=== PATIENT | male | born 1960 | race Caucasian/White ===

== ENCOUNTER 2017-07-10 06:30 | Inpatient (IN) | payer OTHER, SELFPAY ==
[2017-07-10] VITALS (18 sets, daily range): BP systolic 132–182; BP diastolic 73–106; PULSE 65–93; RESP 16–23; TEMP 36.3–36.8; O2SAT 93–97; BMI 29.0; BMI 29.1; BMI 27.8
--- NOTE | 2017-07-10 06:41 | RAD_ITS ---
STUDY: X-RAY CHEST REASON FOR EXAM: Male, 57 years old. Chest pain. TECHNIQUE: Single AP portable view of the chest. COMPARISON: Comparison is made with prior study dated April 08, 2017. FINDINGS: EKG electrodes are seen. Mild elevation of the left hemidiaphragm. Increased markings at the lung bases worse on the left side suggestive of a scarring. Superimposed atelectasis and/or early infiltrate cannot be ruled out at the left lung base. Follow-up is recommended. There is no demonstrated pleural abnormality. Sternal cerclage wires and vascular clips are present from a prior sternotomy and coronary artery bypass graft procedure (CABG). Normal mediastinum and radha. Normal visualized pulmonary arteries. Normal visualized aortic arch and descending thoracic aorta. There are diffuse degenerative changes of the visualized thoracic spine. Normal visualized ribs, clavicles, and shoulders. There is no demonstrated abnormality of the visualized soft tissue structures of the upper abdomen. RAD/Chest 1 View (Portable) IMPRESSION: Persistent increased markings at the lung bases suggestive scarring with possible superimposed atelectasis at the left lung base. Electronically Signed: Sam Duncan MD at 8:02 EDT Tel [phone], Service support ,
--- NOTE | 2017-07-10 06:41 | EKG12_ITS ---
Test Reason : CHEST PAIN Blood Pressure : / mmHG Vent. Rate : 075 BPM Atrial Rate : 075 BPM P-R Int : 136 ms QRS Dur : 082 ms QT Int : 378 ms P-R-T Axes : 057 039 063 degrees QTc Int : 422 ms Normal sinus rhythm Normal ECG Confirmed by JULIO CÉSAR BEDOYA MD ([id number]), science editor JENNIFER COMBS ([id number] on 07/14/2017 8:24:45 AM Referred By: Confirmed By:JULIO CÉSAR BEDOYA MD
[2017-07-10] MEDS: Aspirin 81 MG TAB.CHEW 324 MG PO (06:44)
[2017-07-10] MEDS: 0.9% Normal Saline 1,000 ML 150 ML IV (06:50)
--- NOTE | 2017-07-10 07:03 | ED.DCSUM_ITS ---
- ER Visit Summary Date of Service: 07/10/17 Chief Complaint: [Chest pain] History of Present Illness: The patient is a 57 M [presents with chest discomfort that woke him up around 1:30 AM. Patient describes it as a sharp pain that was all the way across his upper abdomen and chest. Patient states the pain is more localized to the left side on arrival the emergency department. After patient woke up he noticed that he was very sweaty. Patient felt short of breath with it. Patient complains of dyspnea with activity. Patient was nauseated but had no vomiting. Patient denies any radiation of the pain. Patient denies recent illness but did state that he had bronchitis about a month and a half ago. Patient does have cardiac history with prior 4 vessel CABG about 11 years ago. Patient also with history of hypertension and high cholesterol.] Physical Examination: [HEENT-PERRLA, EOMI. Cranial nerves II through XII grossly intact. TMs clear. Mucous membranes moist. No adenopathy. Cardiovascular-regular rate and rhythm without murmur or ectopy Lungs-clear to auscultation, chest wall stable without crepitus or subcu emphysema Abdomen-normoactive bowel sounds, soft, nontender, no rebound or rigidity, no peritoneal signs. Extremities-intact ?4, normal range of motion, normal pulses, atraumatic] Test Results: [EKG obtained on arrival showed a sinus rhythm with a ventricular rate 75 bpm with no acute ST segment changes.] CBC with differential obtained showed a white count of 8.3, hemoglobin 16.9, hematocrit 46, platelets 244. Chemistries, d-dimer, troponin pending. Emergency Department Course and Treatment: [Care of patient turned over to morning physician awaiting lab results and final disposition. Based on patient' s history and symptomatology he will require admission for further workup and evaluation] Treatment Plan: [Pending] Disposition: [Pending] Impression: [Chest pain] This note was generated with [employer] dictation software. It may contain incorrect words, spelling, and punctuation that were not noted in review of the chart prior to signing <Severo Zeng - Last Filed: 07/10/17 07:42> - ER Visit Summary Patient signed out to me. He had difficulty with his blood work secondary to hemolysis and high lipids. Glucose 343. Lipase 848. Liver enzymes slightly elevated. Troponin indeterminate. We were unable to get a d-dimer. CT was done. This showed bibasilar infiltrates. He has no leukocytosis, fever, cough, sputum, or symptoms of pneumonia. CT abdomen showed fatty liver, left inguinal hernia, and diverticulosis. I spoke with the hospitalist. We will not start antibiotics at this time. They will continue to monitor. Patient will need admission for his chest pain, indeterminate troponin, pancreatitis, and other abnormal laboratory findings. Impression: #1. Chest pain #2. Pancreatitis #3. Hyperglycemia <Obie Acuna - Last Filed: 07/10/17 14:28> ED Disposition <Severo Zeng - Last Filed: 07/10/17 07:42> <Obie Acuna - Last Filed: 07/10/17 14:28> - Plan for ED Patient: Chief Complaint: Chest Pain Referrals: Care Physician,No Primary [NON-STAFF] -
[2017-07-10 07:04] LABS: Absolute Lymphocyte Count 1.83 X10^3/ul (0.83-4.51); Absolute Neutrophil Count 5.5 X10^3/uL (2.0-7.7); Basophil# 0.01 X10^3/uL; Basophil% 0.1 % (0-1); Eosinophil# 0.31 X10^3/uL; Eosinophils% 3.7 % (0-5); Hematocrit 46.3 % (40-54); Hemoglobin 16.9 g/dl (13.0-16.5); Lymphocyte # 1.83 X10^3/ul (4.0); Mean Corp Hgb Conc 36.5 g/gl (32-36); Mean Corpuscular Hgb 33.9 pg (27.0-32.0); Mean Platelet Vol. 10.8 fl (6.2-12.0); Monocyte# 0.64 X10^3/uL; Monocyte% 7.7 % (0-10); Neutrophil # 5.51 X10^3/uL (2.7-7.7); Neutrophil % 66.4 % (47-70); Platelet Count 244 K/mm3 (150-450); RBC Distribution Width CV 12.3 % (11.6-14.6); RBC Distribution Width SD 41.3 fl (35.1-43.9); Red Blood Count 4.98 M/mm3 (4.6-6.2); White Blood Count 8.3 K/mm3 (4.4-11.0)
[2017-07-10 07:05] LABS: POSITIVE COUNT NO; POSITIVE DIFFERENTIAL NO; POSITIVE MORPHOLOGY NO
[2017-07-10] MEDS: Ondansetron 4 MG/2 ML Vial IV (10:36)
[2017-07-10 10:50] LABS: Bedside Glucose 316 mg/dL (70-110)
[2017-07-10 12:11] LABS: AST(SGOT) 48 U/L (15-37); Alanine Aminotransfer ALT/SGPT 77 U/L (16-61); Albumin, Serum 2.9 g/dL (3.2-5.0); Alkaline Phosphatase 106 U/L (45-117); Anion Gap 9 (5-15); BUN 11 mg/dL (7-18); BUN/Creat Ratio 16.8 RATIO (10-20); Bilirubin, Direct < 0.05 mg/dL (0.00-0.30); Calcium,Total 7.2 mg/dL (8.5-10.1); Chloride 96 mmol/L (98-107); Creatinine, Serum 0.65 mg/dL (0.70-1.30); EST Glomerular Filtration Rate 134 mL/min (>60); Est Glom Filt Rate - Afr Amer 162 mL/min (>60); Estimated Creatinine Clearance 133.54 ml/min; Globulin 3.5 g/dL (2.2-4.2); Glucose 343 mg/dL (74-106); Lipase 848 U/L (73-393); Potassium 4.4 mmol/L (3.5-5.1); Protein, Total 6.4 g/dL (6.4-8.2); Sodium Level 130 mmol/L (136-145)
--- NOTE | 2017-07-10 12:40 | CT_ITS ---
STUDY: CTA CHEST REASON FOR EXAM: Male, 57 years old. Chest pain. RADIATION DOSAGE (If Supplied By Facility): CTDIvol = ( 18.21 ) mGy, DLP = ( 701.81 ) mGycm TECHNIQUE: The examination was performed with the intravenous administration of 100 ml of Isovue 370 contrast material. Post-processing of the angiographic images was performed, with multiplanar reformation and 3D reconstruction. Individualized dose optimization techniques were used for this CT. COMPARISON: Comparison is made with prior chest radiograph done earlier today. FINDINGS: Normal enhancement of the main pulmonary artery and right and left pulmonary arteries. Normal enhancement of the bilateral peripheral pulmonary arteries. There is no demonstrated pulmonary embolism. Normal thoracic aorta and visualized great vessels. There is no demonstrated aortic dissection. Sternal cerclage wires and vascular clips are present from a prior sternotomy and coronary artery bypass graft procedure (CABG). There are calcifications of the coronary arteries. Normal mediastinum. Normal hilar regions. Normal visualized trachea and bronchi. Hyperinflation. Emphysematous changes seen in both lungs. There is evidence of a patchy infiltrates in both lower lobes. Normal pleura. Normal chest wall structures. Normal osseous structures. Fatty infiltration of the liver. Small hiatal hernia. CT/CTA Chest W/WO Contrast IMPRESSION: There is no evidence of pulmonary embolism. Bibasilar patchy infiltrates. Electronically Signed: Sam Duncan MD at 14:03 EDT Tel [phone], Service support ,
--- NOTE | 2017-07-10 12:41 | CT_ITS ---
STUDY: CT ABDOMEN AND PELVIS WITH CONTRAST REASON FOR EXAM: Male, 57 years old. Abdominal pain. RADIATION DOSAGE (If Supplied By Facility): CTDIvol = ( 23.11 ) mGy, DLP = ( 1251.71 ) mGycm TECHNIQUE: Transaxial images were obtained from the dome of the diaphragm to the symphysis pubis without oral contrast. 100 ml of Isovue 370 contrast was administered. Sagittal and coronal images were reconstructed. Individualized dose optimization techniques were used for this CT. COMPARISON: Comparison is made with prior study dated February 07, 2017. FINDINGS: Bibasilar patchy infiltrates. Prior CABG. Coronary artery calcification. There is decreased attenuation of the liver consistent with steatosis. Normal gallbladder and extrahepatic biliary system. Normal spleen. Normal pancreas. Normal bilateral adrenal glands. Normal right kidney. Normal left kidney. There is a small hiatal hernia. Normal small intestine. There are multiple colonic diverticula consistent with diverticulosis. The appendix is visualized and appears normal. There is diffuse atherosclerotic calcification of the abdominal aorta, without a demonstrated aneurysm. I suspect stenosis of the right common iliac artery. Normal inferior vena cava. Normal retroperitoneum. Normal urinary bladder. There is a left-sided inguinal hernia containing adipose tissue. There are diffuse degenerative changes of the visualized lumbar spine. CT/Abdomen/Pelvis W IV Cont ONLY IMPRESSION: Bibasilar infiltrates. Fatty infiltration of the liver. Sigmoid diverticulosis. Left inguinal hernia. Electronically Signed: Sam Duncan MD at 14:05 EDT Tel [phone], Service support ,
[2017-07-10 12:43] LABS: D-Dimer Quantitative (DVT/PE) 0.56 FEU/ug/m (0.27-0.49)
--- NOTE | 2017-07-10 14:54 | PCM.HP.STD ---
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 transplanted heart: [place] heart Comment: s/p CABG X4 2006 (9) Non compliance w medication regimen Status: Chronic (10) Fatty liver Status: Chronic (11) GERD (gastroesophageal reflux disease) Status: Chronic Qualifiers: Esophagitis presence: esophagitis presence not specified Qualified Code(s): K21.9 - Gastro-esophageal reflux disease without esophagitis History of Present Illness Date of Admission: 07/10/17 Chief Complaint: epigastric abdominal pain with nausea, shortness of breath The patient is a 57 year old M past history of CAD, status post CABG times 07/2006, hypertension, hyperlipidemia, tobacco dependency, diabetes mellitus 2 who refuses oral agents or insulin, noncompliance, who presented to emergency department for evaluation of epigastric abdominal pain with nausea, and some shortness of breath, onset last night after eating chicken wings. He denies EtOH use. Patient states in general he has done very well since his bypass, he does not note exertional chest pain. He cannot list his medications. He has upcoming appointment with his desk operator (Dr. Herrera Espinosa) on August 10, but has not seen his primary care doctor in some time. ED evaluation: Afebrile, heart rate 72 regular, BP 182/95, respirations 23, 96 room air Is pertinent for normal CBC, creatinine 0.65, elevated random glucose 343, pseudohyponatremia 130, transaminitis with AST 48, ALT 77, normal alkaline phosphatase and bilirubin, borderline troponin I 0.16, albumin 2.9, lipase 848. Chest x-ray reveals emphysematous changes and basilar scarring, chest CT contrast reveals no evidence of PE or dissection, basilar infiltrate/atelectasis. CT abdomen/pelvis IV contrast reveals diverticulosis, fatty liver, pancreas and gallbladder. EKG reveals normal sinus rhythm without ischemic changes. In the ED department, the patient received aspirin 324 mg, Zofran 4 mg IV, and fluids. Blood draw indicated lipemic serum. The patient is seen and examined. He denies anginal type chest pains. He has had no cough fever or sputum. [] Past Medical History Past Medical History (Chronic Problems): Chronic Problems Type 2 diabetes mellitus with hyperglycemia (Chronic) non compliance Mixed hyperlipidemia due to type 2 diabetes mellitus (Chronic) lipemic serum clinically HTN (hypertension) (Chronic) Smoker (Chronic) CAD (coronary artery disease) (Chronic) s/p CABG X4 2006 Non compliance w medication regimen (Chronic) Fatty liver (Chronic) GERD (gastroesophageal reflux disease) (Chronic) Allergies amoxicillin Allergy (Verified 07/10/17 07:20) Angioedema lindane Allergy (Verified 07/10/17 07:24) Rash Home Medications: Ambulatory Orders Medication Instructions Recorded Metoprolol(XL)Succ [Toprol Xl 50 mg PO BID 07/14/13 (Beta [place])] Albuterol Inhaler [Ventolin Hfa] 1 - 2 puff INHALATION Q4H PRN PRN 06/11/14 #1 inhaler Simvastatin 40 mg PO DAILY 12/01/16 Losartan Potassium [Cozaar] 50 mg PO DAILY 02/07/17 Aspirin [Aspirin, Baby] 81 mg PO DAILY@0800 04/08/17 Fenofibrate,Micronized 1 tab PO DAILY 04/08/17 [Fenofibrate] Omeprazole [Prilosec] 20 mg PO DAILY 07/10/17 Surgical History: coronary bypass surgery, - - R carotid endarterectomy Psychiatric History: No pertinent psych hx Lives: Spouse/ Significant Other Smoking Status: Current every day smoker Alcohol: None - *Family History Maternal History Items: No pertinent history Paternal History Items: Cancer, Heart Disease Review of Systems Respiratory: Reports: Shortness of breath upon exertion VTE Information - Inpt Only VTE Present on Admission: No VTE Mechan Device Prophylaxis: SCD's VTE Pharm Prophylaxis ordered?: Yes Patient Problems: Active and Suspected Problems Acute pancreatitis (Acute) Chest pain (Acute) Elevated troponin I level (Acute) - Physical Exam General: Alert, Oriented x3, Cooperative Oral: Moist Mucosa, - - poor dentition Neck: No JVD, Negative Carotid Bruits - s/p R CEA Lungs: - - COPD changes throughout, no crackles or rhonchi Cardiovascular: Regular rate, Regular Rhythm, Normal S1, Normal S2, - - well healed sternotomy Abdomen: Bowel Sounds Present, Soft, Obese, - - epigastric ttp no r g Extremities: No edema, Peripheral Pulses Normal Skin: No rashes, No breakdown Vital Signs Temp Pulse Resp BP Pulse Ox 97.4 F L 82 16 149/106 H 94 07/10/17 06:31 07/10/17 13:49 07/10/17 13:49 07/10/17 13:49 07/10/17 13:49 Oxygen Flow Rate (L/min) 2 Oxygen Delivery Method Nasal Cannula Weight: 208 lb 8.917 oz Body Mass Index (BMI) 29.0 Finger Stick Blood Glucose 316 Laboratory Tests Past 24 Hrs 07/10/17 07/10/17 07/10/17 06:40 06:40 06:40 WBC 8.3 RBC 4.98 Hgb 16.9 H Hct 46.3 MCV 93.0 MCH 33.9 H MCHC 36.5 H RDW 12.3 RDW Differential 41.3 Plt Count 244 MPV 10.8 Immature Gran % (Auto) 0.100 Neut % (Auto) 66.4 Lymph % (Auto) 22.0 [place] % (Auto) 7.7 Eos % (Auto) 3.7 Baso % (Auto) 0.1 Absolute Neuts (auto) 5.5 Absolute Lymphs (auto) 1.83 Total Counted Not Reportable D-Dimer Quant (PE/DVT) Cancelled Sodium Potassium Chloride Carbon Dioxide Anion Gap BUN Creatinine Estim Creat Clear Calc Est GFR (MDRD) Af Amer Est GFR (MDRD) Non-Af BUN/Creatinine Ratio Glucose Calcium Total Bilirubin Cancelled Direct Bilirubin Cancelled AST Cancelled ALT Cancelled Alkaline Phosphatase Cancelled Troponin I Total Protein Cancelled Albumin Cancelled Globulin Cancelled Lipase 07/10/17 07/10/17 07/10/17 06:40 07:16 07:16 WBC RBC Hgb Hct MCV MCH MCHC RDW RDW Differential Plt Count MPV Immature Gran % (Auto) Neut % (Auto) Lymph % (Auto) [place] % (Auto) Eos % (Auto) Baso % (Auto) Absolute Neuts (auto) Absolute Lymphs (auto) Total Counted D-Dimer Quant (PE/DVT) Cancelled Sodium Cancelled Cancelled Potassium Cancelled Cancelled Chloride Cancelled Cancelled Carbon Dioxide Cancelled Cancelled Anion Gap Cancelled Cancelled BUN Cancelled Cancelled Creatinine Cancelled Cancelled Estim Creat Clear Calc Cancelled Cancelled Est GFR (MDRD) Af Amer Cancelled Cancelled Est GFR (MDRD) Non-Af Cancelled Cancelled BUN/Creatinine Ratio Cancelled Cancelled Glucose Cancelled Cancelled Calcium Cancelled Cancelled Total Bilirubin Cancelled Cancelled Direct Bilirubin Cancelled Cancelled AST Cancelled Cancelled ALT Cancelled Cancelled Alkaline Phosphatase Cancelled Cancelled Troponin I Cancelled Cancelled Total Protein Cancelled Cancelled Albumin Cancelled Cancelled Globulin Cancelled Cancelled Lipase Cancelled Cancelled 07/10/17 07/10/17 07/10/17 07:50 07:50 08:10 WBC RBC Hgb Hct MCV MCH MCHC RDW RDW Differential Plt Count MPV Immature Gran % (Auto) Neut % (Auto) Lymph % (Auto) [place] % (Auto) Eos % (Auto) Baso % (Auto) Absolute Neuts (auto) Absolute Lymphs (auto) Total Counted D-Dimer Quant (PE/DVT) Cancelled Sodium Cancelled Potassium Cancelled Chloride Cancelled Carbon Dioxide Cancelled Anion Gap Cancelled BUN Cancelled Creatinine Cancelled Estim Creat Clear Calc Cancelled Est GFR (MDRD) Af Amer Cancelled Est GFR (MDRD) Non-Af Cancelled BUN/Creatinine Ratio Cancelled Glucose Cancelled Calcium Cancelled Total Bilirubin Cancelled Direct Bilirubin Cancelled AST Cancelled ALT Cancelled Alkaline Phosphatase Cancelled Troponin I Cancelled Total Protein Cancelled Albumin Cancelled Globulin Cancelled Lipase Cancelled 07/10/17 07/10/17 11:00 11:00 WBC RBC Hgb Hct MCV MCH MCHC RDW RDW Differential Plt Count MPV Immature Gran % (Auto) Neut % (Auto) Lymph % (Auto) [place] % (Auto) Eos % (Auto) Baso % (Auto) Absolute Neuts (auto) Absolute Lymphs (auto) Total Counted D-Dimer Quant (PE/DVT) 0.56 H* Sodium 130 L Potassium 4.4 Chloride 96 L Carbon Dioxide 25.0 Anion Gap 9 BUN 11 Creatinine 0.65 L Estim Creat Clear Calc 133.54 Est GFR (MDRD) Af Amer 162 Est GFR (MDRD) Non-Af 134 BUN/Creatinine Ratio 16.8 Glucose 343 H Calcium 7.2 L Total Bilirubin 0.90 Direct Bilirubin < 0.05 AST 48 H ALT 77 H Alkaline Phosphatase 106 Troponin I 0.16 H Total Protein 6.4 Albumin 2.9 L Globulin 3.5 Lipase 848 H POC Glucose 07/10/17 10:44 POC Glucose 316 H Assessment/Plan Active and Suspected Problems Acute pancreatitis (Acute) Chest pain (Acute) Elevated troponin I level (Acute) 57-year-old gentleman with past medical history of CAD, status post four-vessel CABG 2006, hypertension, hyperlipidemia, GERD, diabetes 2, smoker, noncompliant with medical therapy, who presents with epigastric abdominal pain, constant and gnawing, onset last evening after eating, with some radiation into the anterior chest, no back pain, no palpitations, no belching or burping, some exertional dyspnea. Emergency department evaluation was pertinent for mild systolic and diastolic hypertension, 97% on 2 L. Laboratories were pertinent for pseudohyponatremia in the setting of glucose 343, creatinine 0.6, AST 48, ALT 77, normal alkaline phosphatase and bilirubin, indeterminate troponin at 0.16, lipase 848. Imaging studies (CTA of chest, abdominal/pelvic CT IV contrast only, revealed prior CABG, coronary calcification, COPD changes, hepatic steatosis, normal gallbladder and extrahepatic biliary system, normal spleen and pancreas, small hiatal hernia, diverticulosis, and bibasilar airspace disease, emphysematous changes in lungs, atelectasis versus infiltrate. The patient denies fever, chill, productive cough, or constitutional symptoms. His serum was lipemic. He freely admits noncompliance with diabetes, will not take tablets or insulins. Clinical exam pertinent for the pain reproduced by palpation of the epigastric area. Admit PCU. 1. Acute pancreatitis biochemically, normal imaging of pancreas, in the setting of suspected hypertriglyceridemia, lipemic serum on clinical draw. No EtOH or biliary issues PLAN: admit PCU hydration clear diet analgesics, antiemetics prn IV PPI serial lab 2. Non-STEMI. hx CAD s/p CABG x 4 2006 Mildly elevated nonspecific troponin, patient with atypical symptoms, but newish exertional dyspnea in the setting of long standing tobacco dependency, EKG normal sinus rhythm without ischemic changes Chronic medications include aspirin statin, beta-devon He denies historic exertional chest pain or dyspnea; however is poorly controlled diabetic Denies chest pain on exam PLAN: serial cardiac biomarkers med mgmt --> aspirin, statin, nitrates as needed, oxygen, beta-devon, added amlodipine 2.5 mg daily cardiology opinion 3. Hypertension Premorbidly on metoprolol, ARB, compliance uncertain PLAN: continue metoprolol, ARB, add amlodipine 2.5 mg daily 4. DM2 with hyperglycemia, HPL. non compliant with diet , meds PLAN: counselled Novolog scale moderate AC.HS statin, fibrate check fasting lipids and A1C clear diet 5. HPL - fasting lipids, statin, fibrate 6. COPD aerosols O2 titration policy Nicoderm patch prn counselled 7. non alcoholic hepatic steatosis in setting of DM, truncal adiposity 8. tobacco dependence - nicoderm patch 9. abnl chest film/CT -- images reviewed --> favor basilar atelectasis -- no fever cough or sputum -- will hold off on ABX for now 10. DVT prophylaxis -- subQ heparin, SCDs Code Visit Inpatient E&M: 91288 Init Hosp L2
--- NOTE | 2017-07-10 15:09 | HP.PCM_ITS ---
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 transplanted heart: [place] heart Comment: s/p CABG X4 2006 (9) Non compliance w medication regimen Status: Chronic (10) Fatty liver Status: Chronic (11) GERD (gastroesophageal reflux disease) Status: Chronic Qualifiers: Esophagitis presence: esophagitis presence not specified Qualified Code(s) : K21.9 - Gastro-esophageal reflux disease without esophagitis History of Present Illness Date of Admission: 07/10/17 Chief Complaint: epigastric abdominal pain with nausea, shortness of breath The patient is a 57 year old M past history of CAD, status post CABG times 2006, hypertension, hyperlipidemia, tobacco dependency, diabetes mellitus 2 who refuses oral agents or insulin, noncompliance, who presented to emergency department for evaluation of epigastric abdominal pain with nausea, and some shortness of breath, onset last night after eating chicken wings. He denies EtOH use. Patient states in general he has done very well since his bypass, he does not note exertional chest pain. He cannot list his medications. 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 Herrera Espinosa) on August 10, but has not seen his primary care doctor in some time. ED evaluation: Afebrile, heart rate 72 regular, BP 182/95, respirations 23, 96 room air Is pertinent for normal CBC, creatinine 0.65, elevated random glucose 343, pseudohyponatremia 130, transaminitis with AST 48, ALT 77, normal alkaline phosphatase and bilirubin, borderline troponin I 0.16, albumin 2.9, lipase 848. Chest x-ray reveals emphysematous changes and basilar scarring, chest CT contrast reveals no evidence of PE or dissection, basilar infiltrate/ atelectasis. CT abdomen/pelvis IV contrast reveals diverticulosis, fatty liver , pancreas and gallbladder. EKG reveals normal sinus rhythm without ischemic changes. In the ED department, the patient received aspirin 324 mg, Zofran 4 mg IV, and fluids. Blood draw indicated lipemic serum. The patient is seen and examined. He denies anginal type chest pains. He has had no cough fever or sputum. [] Past Medical History Past Medical History (Chronic Problems): Chronic Problems Type 2 diabetes mellitus with hyperglycemia (Chronic) non compliance Mixed hyperlipidemia due to type 2 diabetes mellitus (Chronic) lipemic serum clinically HTN (hypertension) (Chronic) Smoker (Chronic) CAD (coronary artery disease) (Chronic) s/p CABG X4 2006 Non compliance w medication regimen (Chronic) Fatty liver (Chronic) GERD (gastroesophageal reflux disease) (Chronic) Allergies amoxicillin Allergy (Verified 07/10/17 07:20) Angioedema lindane Allergy (Verified 07/10/17 07:24) Rash Home Medications: Ambulatory Orders Medication Instructions Recorded Metoprolol(XL)Succ [Toprol Xl 50 mg PO BID 07/14/13 (Beta Devon)] Albuterol Inhaler [Ventolin Hfa] 1 - 2 puff INHALATION Q4H PRN PRN 06/11/14 #1 inhaler Simvastatin 40 mg PO DAILY 12/01/16 Losartan Potassium [Cozaar] 50 mg PO DAILY 02/07/17 Aspirin [Aspirin, Baby] 81 mg PO DAILY@0800 04/08/17 Fenofibrate,Micronized 1 tab PO DAILY 04/08/17 [Fenofibrate] Omeprazole [Prilosec] 20 mg PO DAILY 07/10/17 Surgical History: coronary bypass surgery, - - R carotid endarterectomy Psychiatric History: No pertinent psych hx Lives: Spouse/ Significant Other Smoking Status: Current every day smoker Alcohol: None - *Family History Maternal History Items: No pertinent history Paternal History Items: Cancer, Heart Disease Review of Systems Respiratory: Reports: Shortness of breath upon exertion VTE Information - Inpt Only VTE Present on Admission: No VTE Mechan Device Prophylaxis: SCD's VTE Pharm Prophylaxis ordered?: Yes Patient Problems: Active and Suspected Problems Acute pancreatitis (Acute) Chest pain (Acute) Elevated troponin I level (Acute) - Physical Exam General: Alert, Oriented x3, Cooperative Oral: Moist Mucosa, - - poor dentition Neck: No JVD, Negative Carotid Bruits - s/p R CEA Lungs: - - COPD changes throughout, no crackles or rhonchi Cardiovascular: Regular rate, Regular Rhythm, Normal S1, Normal S2, - - well healed sternotomy Abdomen: Bowel Sounds Present, Soft, Obese, - - epigastric ttp no r g Extremities: No edema, Peripheral Pulses Normal Skin: No rashes, No breakdown Vital Signs Temp Pulse Resp BP Pulse Ox 97.4 F L 82 16 149/106 H 94 07/10/17 06:31 07/10/17 13:49 07/10/17 13:49 07/10/17 13:49 07/10/17 13:49 Oxygen Flow Rate (L/min) 2 Oxygen Delivery Method Nasal Cannula Weight: 208 lb 8.917 oz Body Mass Index (BMI) 29.0 Finger Stick Blood Glucose 316 Laboratory Tests Past 24 Hrs 07/10/17 07/10/17 07/10/17 06:40 06:40 06:40 WBC 8.3 RBC 4.98 Hgb 16.9 H Hct 46.3 MCV 93.0 MCH 33.9 H MCHC 36.5 H RDW 12.3 RDW Differential 41.3 Plt Count 244 MPV 10.8 Immature Gran % (Auto) 0.100 Neut % (Auto) 66.4 Lymph % (Auto) 22.0 [place] % (Auto) 7.7 Eos % (Auto) 3.7 Baso % (Auto) 0.1 Absolute Neuts (auto) 5.5 Absolute Lymphs (auto) 1.83 Total Counted Not Reportable D-Dimer Quant (PE/DVT) Cancelled Sodium Potassium Chloride Carbon Dioxide Anion Gap BUN Creatinine Estim Creat Clear Calc Est GFR (MDRD) Af Amer Est GFR (MDRD) Non-Af BUN/Creatinine Ratio Glucose Calcium Total Bilirubin Cancelled Direct Bilirubin Cancelled AST Cancelled ALT Cancelled Alkaline Phosphatase Cancelled Troponin I Total Protein Cancelled Albumin Cancelled Globulin Cancelled Lipase 07/10/17 07/10/17 07/10/17 06:40 07:16 07:16 WBC RBC Hgb Hct MCV MCH MCHC RDW RDW Differential Plt Count MPV Immature Gran % (Auto) Neut % (Auto) Lymph % (Auto) [place] % (Auto) Eos % (Auto) Baso % (Auto) Absolute Neuts (auto) Absolute Lymphs (auto) Total Counted D-Dimer Quant (PE/DVT) Cancelled Sodium Cancelled Cancelled Potassium Cancelled Cancelled Chloride Cancelled Cancelled Carbon Dioxide Cancelled Cancelled Anion Gap Cancelled Cancelled BUN Cancelled Cancelled Creatinine Cancelled Cancelled Estim Creat Clear Calc Cancelled Cancelled Est GFR (MDRD) Af Amer Cancelled Cancelled Est GFR (MDRD) Non-Af Cancelled Cancelled BUN/Creatinine Ratio Cancelled Cancelled Glucose Cancelled Cancelled Calcium Cancelled Cancelled Total Bilirubin Cancelled Cancelled Direct Bilirubin Cancelled Cancelled AST Cancelled Cancelled ALT Cancelled Cancelled Alkaline Phosphatase Cancelled Cancelled Troponin I Cancelled Cancelled Total Protein Cancelled Cancelled Albumin Cancelled Cancelled Globulin Cancelled Cancelled Lipase Cancelled Cancelled 07/10/17 07/10/17 07/10/17 07:50 07:50 08:10 WBC RBC Hgb Hct MCV MCH MCHC RDW RDW Differential Plt Count MPV Immature Gran % (Auto) Neut % (Auto) Lymph % (Auto) [place] % (Auto) Eos % (Auto) Baso % (Auto) Absolute Neuts (auto) Absolute Lymphs (auto) Total Counted D-Dimer Quant (PE/DVT) Cancelled Sodium Cancelled Potassium Cancelled Chloride Cancelled Carbon Dioxide Cancelled Anion Gap Cancelled BUN Cancelled Creatinine Cancelled Estim Creat Clear Calc Cancelled Est GFR (MDRD) Af Amer Cancelled Est GFR (MDRD) Non-Af Cancelled BUN/Creatinine Ratio Cancelled Glucose Cancelled Calcium Cancelled Total Bilirubin Cancelled Direct Bilirubin Cancelled AST Cancelled ALT Cancelled Alkaline Phosphatase Cancelled Troponin I Cancelled Total Protein Cancelled Albumin Cancelled Globulin Cancelled Lipase Cancelled 07/10/17 07/10/17 11:00 11:00 WBC RBC Hgb Hct MCV MCH MCHC RDW RDW Differential Plt Count MPV Immature Gran % (Auto) Neut % (Auto) Lymph % (Auto) [place] % (Auto) Eos % (Auto) Baso % (Auto) Absolute Neuts (auto) Absolute Lymphs (auto) Total Counted D-Dimer Quant (PE/DVT) 0.56 H* Sodium 130 L Potassium 4.4 Chloride 96 L Carbon Dioxide 25.0 Anion Gap 9 BUN 11 Creatinine 0.65 L Estim Creat Clear Calc 133.54 Est GFR (MDRD) Af Amer 162 Est GFR (MDRD) Non-Af 134 BUN/Creatinine Ratio 16.8 Glucose 343 H Calcium 7.2 L Total Bilirubin 0.90 Direct Bilirubin < 0.05 AST 48 H ALT 77 H Alkaline Phosphatase 106 Troponin I 0.16 H Total Protein 6.4 Albumin 2.9 L Globulin 3.5 Lipase 848 H POC Glucose 07/10/17 10:44 POC Glucose 316 H Assessment/Plan Active and Suspected Problems Acute pancreatitis (Acute) Chest pain (Acute) Elevated troponin I level (Acute) 57-year-old gentleman with past medical history of CAD, status post four-vessel CABG 2006, hypertension, hyperlipidemia, GERD, diabetes 2, smoker, noncompliant with medical therapy, who presents with epigastric abdominal pain, constant and gnawing, onset last evening after eating, with some radiation into the anterior chest, no back pain, no palpitations, no belching or burping, some exertional dyspnea. Emergency department evaluation was pertinent for mild systolic and diastolic hypertension, 97% on 2 L. Laboratories were pertinent for pseudohyponatremia in the setting of glucose 343, creatinine 0.6, AST 48, ALT 77 , normal alkaline phosphatase and bilirubin, indeterminate troponin at 0.16, lipase 848. Imaging studies (CTA of chest, abdominal/pelvic CT IV contrast only , revealed prior CABG, coronary calcification, COPD changes, hepatic steatosis, normal gallbladder and extrahepatic biliary system, normal spleen and pancreas, small hiatal hernia, diverticulosis, and bibasilar airspace disease, emphysematous changes in lungs, atelectasis versus infiltrate. The patient denies fever, chill, productive cough, or constitutional symptoms. His serum was lipemic. He freely admits noncompliance with diabetes, will not take tablets or insulins. Clinical exam pertinent for the pain reproduced by palpation of the epigastric area. Admit PCU. 1. Acute pancreatitis biochemically, normal imaging of pancreas, in the setting of suspected hypertriglyceridemia, lipemic serum on clinical draw. No EtOH or biliary issues PLAN: admit PCU hydration clear diet analgesics, antiemetics prn IV PPI serial lab 2. Non-STEMI. hx CAD s/p CABG x 4 2006 Mildly elevated nonspecific troponin, patient with atypical symptoms, but newish exertional dyspnea in the setting of long standing tobacco dependency, EKG normal sinus rhythm without ischemic changes Chronic medications include aspirin statin, beta-devon He denies historic exertional chest pain or dyspnea; however is poorly controlled diabetic Denies chest pain on exam PLAN: serial cardiac biomarkers med mgmt --> aspirin, statin, nitrates as needed, oxygen, beta-devon, added amlodipine 2.5 mg daily cardiology opinion 3. Hypertension Premorbidly on metoprolol, ARB, compliance uncertain PLAN: continue metoprolol, ARB, add amlodipine 2.5 mg daily 4. DM2 with hyperglycemia, HPL. non compliant with diet , meds PLAN: counselled Novolog scale moderate AC.HS statin, fibrate check fasting lipids and A1C clear diet 5. HPL - fasting lipids, statin, fibrate 6. COPD aerosols O2 titration policy Nicoderm patch prn counselled 7. non alcoholic hepatic steatosis in setting of DM, truncal adiposity 8. tobacco dependence - nicoderm patch 9. abnl chest film/CT -- images reviewed --> favor basilar atelectasis -- no fever cough or sputum -- will hold off on ABX for now 10. DVT prophylaxis -- subQ heparin, SCDs Code Visit Inpatient E&M: 94150 Init Hosp L2
--- NOTE | 2017-07-10 16:14 | ECHOCS_ITS ---
Reason For Study: Chest Pain Procedure This was a 2D Doppler, Color Flow transthoracic echocardiogram. Exam performed portable in patient room. Left Ventricle Normal LV size. Left ventricular systolic function is normal. The estimated ejection fraction is 70 %. No evidence for diastolic dysfunction. No regional wall motion abnormalities noted. Right Ventricle Normal RV size. Normal systolic function. Atria Normal left atrium. Normal right atrium. Mitral Valve Normal mitral valve. Tricuspid Valve Normal tricuspid valve. Aortic Valve Trisinus/trileaflet aortic valve. Mild focal aortic valve calcification. Pulmonic Valve Normal pulmonic valve. Great Vessels Normal aortic root. The pulmonary artery is normal size. Normal inferior vena cava. Pericardium/Pleural No pericardial effusion. Medication Definity0.2ml given slow IV push to enhance endocardial definition. MMode/2D Measurements & Calculations LVIDd: 4.1 cm IVSd: 1.1 cm Ao root diam: 3.2 cm LVIDs: 2.5 cm LVPWd: 1.1 cm LA dimension: 4.0 cm RVDd: 4.4 cm FS: 39.3 % LAV(MOD-bp): 29.2 ml LAV(MOD-bp) Indexed: 13.7 ml/m2 LA A4 area: 12.9 cm2 RA A4 area: 10.9 cm2 LAV(MOD-sp2): 29.3 ml LAV(MOD-sp4): 28.6 ml Doppler Measurements & Calculations MV E max dylan: 92.4 cm/sec Lat Peak E' Dylan: 10.3 cm/sec Med Peak E' Dylan: 6.0 cm/sec MV A max dylan: 69.7 cm/sec E/E' lat: 9.0 E/E' med: 15.4 MV E/A: 1.3 Ao V2 max: 168.1 cm/sec LV V1 max: 112.3 cm/sec PA V2 max: 109.4 cm/sec Ao max P.3 mmHg LV V1 max P.0 mmHg Ao V2 mean: 128.8 cm/sec Ao mean P.2 mmHg Ao V2 VTI: 32.1 cm Interpretation Summary Normal LV size. Left ventricular systolic function is normal. The estimated ejection fraction is 70 %. No evidence for diastolic dysfunction. Structurally normal valves. Contrast injection was performed. Ordering Physician: Guerda García Referring Physician: Darrius Penny Performed By: Solange Pena RDCS, RVT
[2017-07-10] MEDS: 0.9% Normal Saline 1,000 ML 75 ML IV (17:09)
[2017-07-10 17:20] LABS: Bedside Glucose 243 mg/dL (70-110)
[2017-07-10] MEDS: amLODIPine 2.5 MG Tablet PO (18:05)
[2017-07-10] MEDS: Metoprolol(XL)Succ 50 MG Tablet PO (18:06)
[2017-07-10] MEDS: Fenofibrate 145 MG Tablet PO (18:06)
[2017-07-10] MEDS: Losartan Potassium 50 MG Tablet PO (18:06)
--- NOTE | 2017-07-10 18:22 | CON.PCM_ITS ---
Reason for Consult Date of Consultation: 07/10/17 Reason for Consultation: Abnormal cardiac enzymes. History of Present Illness: The patient is a 57 year old M with a history of coronary artery disease status post carotid bypass surgery ?4 approximately 11 years ago history of hypertension hyperlipidemia who was previously been followed up by a almond huller in the [place] area. Dr. Herrera Espinosa. He presented here today because he started experiencing abdominal discomfort across his epigastrium which he felt was similar to his presentation prior to his having his cardiac problems. He was seen in the emergency room was evaluated and underwent a CT scan of his chest and abdomen. He continues to have mild discomfort in his epigastrium. He denies any dizziness or diaphoresis no near syncope or syncope he has had mild shortness of breath. He otherwise is active and does not have any discomfort when he is working. [] Past Medical History Allergies/Adverse Reactions: Allergies amoxicillin Allergy (Verified 07/10/17 07:20) Angioedema lindane Allergy (Verified 07/10/17 07:24) Rash Home Medications: Ambulatory Orders Medication Instructions Recorded Metoprolol(XL)Succ [Toprol Xl 50 mg PO DAILY 07/14/13 (Beta Devon)] Albuterol Inhaler [Ventolin Hfa] 1 - 2 puff INHALATION Q4H PRN PRN 06/11/14 #1 inhaler Simvastatin 40 mg PO DAILY 12/01/16 Losartan Potassium [Cozaar] 50 mg PO DAILY 02/07/17 Aspirin [Aspirin, Baby] 81 mg PO DAILY@0800 04/08/17 Fenofibrate,Micronized 1 tab PO DAILY 04/08/17 [Fenofibrate] [place]-3 Fatty Acids/Fish Oil [Fish 2 each PO DAILY 07/10/17 Oil 1,000 mg Capsule] Omeprazole [Prilosec] 20 mg PO DAILY 07/10/17 Past Medical History (Chronic Problems): Chronic Problems Type 2 diabetes mellitus with hyperglycemia (Chronic) non compliance Mixed hyperlipidemia due to type 2 diabetes mellitus (Chronic) lipemic serum clinically HTN (hypertension) (Chronic) Smoker (Chronic) CAD (coronary artery disease) (Chronic) s/p CABG X4 2006 Non compliance w medication regimen (Chronic) Fatty liver (Chronic) GERD (gastroesophageal reflux disease) (Chronic) Surgical History: coronary bypass surgery, - - R carotid endarterectomy Psychiatric History: No pertinent psych hx - *Family History Maternal History Items: No pertinent history Paternal History Items: Cancer, Heart Disease Lives: Spouse/ Significant Other Smoking Status: Current every day smoker Tobacco Use: Cigarettes Alcohol: None Drugs: None Review of Systems - Review of Systems General: Denies: Fever, Night Sweats, Fatigue Cardiovascular: Denies: Chest Discomfort, Shortness of Breath, Orthopnea, PND, Peripheral Edema, Palpitations, Lightheadedness, Dizziness, Near Syncope, Syncope Respiratory: Denies: Cough, Sputum Production, Hemoptysis Gastrointestinal: Reports: Epigastric Discomfort, Abdominal Discomfort. Denies : Hematemesis, Hematochezia, Melena Genitourinary: Denies: Dysuria, Hematuria Skin: Denies: Rash Subjectve: Pleasant gentleman in no apparent distress. Objective: Vital Signs Temp Pulse Resp BP Pulse Ox 98.1 F 79 18 151/79 H 96 07/10/17 16:04 07/10/17 18:06 07/10/17 16:04 07/10/17 18:06 07/10/17 16:04 Oxygen Flow Rate (L/min) 2 Oxygen Delivery Method Nasal Cannula Weight: 198 lb 13.711 oz Body Mass Index (BMI) 27.8 General: Awake, Alert, Oriented x 3 HEENT: PERRL, EOMI, Sclera Non Icteric Neck: Supple, Good ROM, No Lymph Node Enlargement Lungs: Clear to auscultation Cardiovascular: Regular Rhythm, Normal S1, Normal S2, No Murmurs, No Rubs, No Gallops Vascular: No Carotid Bruits, Normal Femoral Pulses, Normal Radial Pulses, Normal Dorsalis Pedal Pulse, Normal Posterior Tibial Pulses Abdomen: Bowel Sounds Present, Soft, Non Tender, No HSM, No Organomegaly Extremities: No Cyanosis, No Clubbing, No edema Neurological: No Focal Motor or Sensory Deficit 07/10/17 16:42: Troponin I 0.09 H Rhythm: EKG: Normal sinus rhythm with no acute changes and a rate of 74 bpm Assessment/Plan 1. Abnormal cardiac enzymes. Mr. Corbett presents with epigastric discomfort and mildly abnormal cardiac enzymes. He does not have any EKG changes and at this time it is not clear to me whether this is secondary to a primary coronary ischemic event secondary to demand ischemia. My recommendation will be for him to continue on aspirin and beta-devon as well as his ARB. An echocardiogram will be performed in a.m. to assess his left ventricular function. Depending on the further trend on his cardiac enzymes further recommendations will be made. 2. Hypertension. He does have a history of hypertension on beta-devon and ARB. My recommendation will be to increase his ARB to 100 mg a day. Amlodipine has been added to his regimen. We will follow this closely and an echocardiogram will be performed to assess his left ventricular function. 3. Hyperlipidemia He is on a statin as well as fenofibrate and he does have abnormal liver function tests as well as an elevated lipase. His abdominal discomfort is concerning for possible pancreatitis in these 2 medications especially the fenofibrate needs to be held at this time while this is sorted out. He denies any alcohol use. 4. Coronary artery disease He is status post four-vessel coronary artery bypass surgery remotely. The bypass reports would be obtained and then further recommendations will be made. Thank you for allowing me to participate in the care of your patient. Please don't hesitate to call if any issues arise
[2017-07-10] MEDS: Ipratropium/Albuterol Sulfate 3 ML AMPUL.NEB INHALATION (19:17)
[2017-07-10 21:40] LABS: Bedside Glucose 339 mg/dL (70-110)
[2017-07-11] VITALS (17 sets, daily range): BP systolic 109–144; BP diastolic 60–81; PULSE 80–98; RESP 16–20; TEMP 36.6–36.9; O2SAT 93–96
[2017-07-11] MEDS: 0.9% Normal Saline 1,000 ML 75 ML IV ×2 (06:26→20:41)
[2017-07-11 07:01] LABS: Bedside Glucose 259 mg/dL (70-110)
--- NOTE | 2017-07-11 07:23 | PCM.PROGNOTE ---
Subjective: Patient is a 57-year-old male with a past medical history of coronary artery disease, CABG ?4 vessels in 2007, hypertension, hyperlipidemia, tobacco dependency, diabetes mellitus type 2, noncompliance with medications right carotid endarterectomy, GERD and fatty infiltration of the liver who presented to the emergency room at [facility] on 07/10/2017 complaining of shortness of breath, epigastric pain and nausea. Pain started after he ate chicken wings. He denied any alcohol use. Vital signs at presentation to the emergency room were temperature 97.4, pulse rate 72, blood pressure 182/95, respiratory rate 23 and he was 96% saturated on room air. He admitted to not seeing his primary care doctor in quite some time. Significant lab included a low sodium at 130 and a low chloride at 96. BUN was 11 with a creatinine of 0.65. Random glucose was 343, AST was 48 and ALT was 77. Bilirubin and alkaline phosphatase were within normal limits. Initial troponin was elevated at 0.16 and has trended down. Lipase was increased at 848. Chest x-ray did not show any infiltrates, pulmonary vascular congestion or pleural effusion. CT scan of the abdomen and pelvis showed diverticulosis, fatty infiltration of the liver, bibasilar infiltrates versus atelectasis, normal gallbladder and normal pancreas. EKG showed normal sinus rhythm with no ischemic changes. Blood draw showed Lipemic serum. He was admitted to a monitored bed on PCU and serial cardiac enzymes were ordered. Dr. Quinn was consulted. An echocardiogram was ordered for the morning. Afebrile with stable vital signs. Blood pressure has come down since starting antihypertensives at admission and I suspect that he is not compliant with medication at home. Hemoglobin A1c is 13.1. Triglycerides are 2184 and the total cholesterol is 321 with an HDL of 31. Lipase is down to 458 from 848 at admission. - Physical Exam General: Alert, Oriented x3, Cooperative, Well developed, Well nourished, - - Looks fatigued HEENT: Atraumatic, PERRLA, EOMI Oral: Moist Mucosa, - - Very poor dentition Neck: Supple, No JVD, Negative Carotid Bruits, No Nodes, No Nuchal Rigidity, Trachea Midline Lungs: Clear to auscultation, No wheeze, No rales, Diminished Cardiovascular: Regular rate, Regular Rhythm, Normal S1, Normal S2, No rub noted, No Gallop, - - Healed cicatrix secondary to prior CABG Abdomen: Bowel Sounds Present, Soft, Non-Distended, Tender - With palpation in the epigastric area but, no guarding Extremities: No clubbing, No cyanosis, No edema, Peripheral Pulses Normal Skin: No rashes, No breakdown Neurological: Cranial nerves II-XII grossly intact, Neuro grossly intact Psych/Mental Status: Normal Affect, Appropriate Vital Signs Temp Pulse Resp BP Pulse Ox 97.9 F 82 18 144/81 H 95 07/11/17 02:46 07/11/17 04:00 07/11/17 02:46 07/11/17 02:46 07/11/17 02:46 Oxygen Flow Rate (L/min) 2 Oxygen Delivery Method Room Air Weight: 198 lb 13.711 oz Body Mass Index (BMI) 27.8 Intake and Output for Last 24 Hours 07/09/17 07/10/17 07/11/17 23:59 23:59 23:59 Intake Total 480 / 480 1455 / 1455 Balance 480 / 480 1455 / 1455 Laboratory Tests Past 24 Hrs 07/10/17 07/10/17 07/11/17 16:42 19:00 00:47 Troponin I 0.09 H 0.08 H 0.05 POC Glucose 07/11/17 07/10/17 07/10/17 06:54 20:55 17:05 POC Glucose 259 H 339 H 243 H Medical Necessity - Tobacco Use Smoking Status: Current every day smoker Tobacco Use: Cigarettes Assessment/Plan Impressions 1. Acute pancreatitis-initially thought to be secondary to fenofibrate however patient admits to not taking his medications. I suspect it may be due to hyperlipidemia. Will continue clear liquid diet and advance diet as tolerated when the lipase starts to decline. 2. Noncardiac chest pain with mildly elevated troponin likely secondary to acute pancreatitis and demand ischemia. Seen by Dr. Quinn. No plan for intervention at this time. 3. Diabetes mellitus type 2-uncontrolled. Patient is agreeable to initiating insulin. 4. Coronary artery disease with history of CABG ?4 vessels in 2006. Continue aspirin, beta jonatan, ARB. Will likely also need a statin. 5. Hypertension 6. Tobacco dependence 7. Poor dental hygiene 8. COPD Recheck lab in the a.m. Continue clear liquid diet Instructed in insulin administration with a flex pen Adjust insulin as needed. I feel the patient would not be compliant with a multiple daily injection schedule so will initiate NovoLog 70/30 twice daily Code Visit Inpatient E&M: 52607 Subs Hosp L2
[2017-07-11] MEDS: Ipratropium/Albuterol Sulfate 3 ML AMPUL.NEB INHALATION ×4 (07:28→19:53)
[2017-07-11] MEDS: Aspirin 81 MG TAB.CHEW PO (08:08)
[2017-07-11] MEDS: amLODIPine 2.5 MG Tablet PO (08:10)
[2017-07-11] MEDS: Metoprolol(XL)Succ 50 MG Tablet PO (08:11)
[2017-07-11] MEDS: Atorvastatin Calcium 20 MG Tablet PO (08:11)
[2017-07-11] MEDS: Losartan Potassium 50 MG Tablet PO (08:14)
[2017-07-11 08:22] LABS: Hematocrit 45.2 % (40-54); Hemoglobin 15.9 g/dl (13.0-16.5); Mean Corp Hgb Conc 35.2 g/gl (32-36); Mean Corpuscular Hgb 32.6 pg (27.0-32.0); Mean Corpuscular Volume 92.6 fL (80-94); Mean Platelet Vol. 10.3 fl (6.2-12.0); Platelet Count 234 K/mm3 (150-450); RBC Distribution Width CV 12.5 % (11.6-14.6); RBC Distribution Width SD 41.8 fl (35.1-43.9); Red Blood Count 4.88 M/mm3 (4.6-6.2); White Blood Count 6.4 K/mm3 (4.4-11.0)
[2017-07-11 08:23] LABS: Scan Indicated on CBC? Y/N NO
[2017-07-11 08:28] LABS: International Normalized Ratio 0.9; Prothrombin Time (Protime)PT. 12.4 SECONDS (11.7-14.9)
[2017-07-11 08:58] LABS: Hemoglobin A1c 13.1 % (4.2-6.3)
[2017-07-11 09:30] LABS: ALB/GLOB Ratio 0.7 RATIO (0.9-2.4); AST(SGOT) 23 U/L (15-37); Alanine Aminotransfer ALT/SGPT 68 U/L (16-61); Alkaline Phosphatase 104 U/L (45-117); Anion Gap 9 (5-15); BUN 7 mg/dL (7-18); BUN/Creat Ratio 8.9 RATIO (10-20); Calcium,Total 8.6 mg/dL (8.5-10.1); Chloride 99 mmol/L (98-107); Cholesterol 321 mg/dL (200); Creatinine, Serum 0.78 mg/dL (0.70-1.30); EST Glomerular Filtration Rate 108 mL/min (>60); Est Glom Filt Rate - Afr Amer 131 mL/min (>60); Estimated Creatinine Clearance 107.89 ml/min; Globulin 4.1 g/dL (2.2-4.2); Glucose 272 mg/dL (74-106); High Density Lipoprotein 31 mg/dL; Lipase 458 U/L (73-393); Magnesium 1.9 mg/dL (1.6-2.6); Potassium 4.1 mmol/L (3.5-5.1); Protein, Total 7.1 g/dL (6.4-8.2); Sodium Level 133 mmol/L (136-145); Triglycerides 2184 mg/dL
--- NOTE | 2017-07-11 10:19 | PN.CARD_ITS ---
Subjectve: Patient seen and evaluated. Objective: Vital Signs Temp Pulse Resp BP Pulse Ox 97.9 F 98 16 144/70 H 94 07/11/17 07:55 07/11/17 08:11 07/11/17 07:55 07/11/17 07:55 07/11/17 07:55 Oxygen Flow Rate (L/min) 2 Oxygen Delivery Method Room Air Weight: 198 lb 13.711 oz Body Mass Index (BMI) 27.8 Intake and Output for Last 24 Hours 07/09/17 07/10/17 07/11/17 23:59 23:59 23:59 Intake Total 480 / 480 1455 / 1455 Balance 480 / 480 1455 / 1455 General: Awake, Alert, Oriented x 3 HEENT: PERRL, EOMI, Sclera Non Icteric Neck: Supple, Good ROM, No Lymph Node Enlargement Lungs: Clear to auscultation Cardiovascular: Regular Rhythm, Normal S1, Normal S2, No Murmurs, No Rubs, No Gallops Vascular: No Carotid Bruits, Normal Femoral Pulses, Normal Radial Pulses, Normal Dorsalis Pedal Pulse, Normal Posterior Tibial Pulses Abdomen: Bowel Sounds Present, Soft, Non Tender, No HSM, No Organomegaly Extremities: No Cyanosis, No Clubbing, No edema Neurological: No Focal Motor or Sensory Deficit 07/10/17 16:42: Troponin I 0.09 H 07/10/17 19:00: Troponin I 0.08 H 07/11/17 00:47: Troponin I 0.05 07/11/17 07:43: Hemoglobin A1c 13.1 H 07/11/17 07:43: WBC 6.4, RBC 4.88, Hgb 15.9, Hct 45.2, MCV 92.6, MCH 32.6 H, MCHC 35.2, RDW 12.5, RDW Differential 41.8, Plt Count 234, MPV 10.3 07/11/17 07:43: Sodium 133 L, Potassium 4.1, Chloride 99, Carbon Dioxide 25.0, Anion Gap 9, BUN 7, Creatinine 0.78, Est GFR (MDRD) Af Amer 131, Est GFR (MDRD) Non-Af 108, BUN/Creatinine Ratio 8.9 L, Glucose 272 H, Calcium 8.6, Magnesium 1.9, Total Bilirubin 0.60, Triglycerides 2184 H, Cholesterol 321 H, LDL Cholesterol TNP, VLDL Cholesterol TNP, HDL Cholesterol 31 L 07/11/17 07:43: PT 12.4, INR 0.9 Rhythm: EKG: ECHO: Stress Test: Cardiac Cath: PCI: CT Surgery: Holter monitor: EPS: PPM: CXR: Chest CT Scan: Medical Necessity - Tobacco Use Smoking Status: Current every day smoker Tobacco Use: Cigarettes Assessment/Plan 1. Abnormal cardiac enzymes. Mr. Corbett presents with epigastric discomfort and mildly abnormal cardiac enzymes. He does not have any EKG changes and at this time it is not clear to me whether this is secondary to a primary coronary ischemic event secondary to demand ischemia. My recommendation will be for him to continue on aspirin and beta-jonatan as well as his ARB. An echocardiogram will be performed in a.m. to assess his left ventricular function. Depending on the further trend on his cardiac enzymes further recommendations will be made. At this time there are no plans to perform any cardiac additional workup. Patient has a follow-up with his commercial finance analyst on August 10 2. Hypertension. He does have a history of hypertension on beta-jonatan and ARB. My recommendation will be to increase his ARB to 100 mg a day. Amlodipine has been added to his regimen. We will follow this closely and an echocardiogram will be performed to assess his left ventricular function. 3. Hyperlipidemia He is on a statin as well as fenofibrate and he does have abnormal liver function tests as well as an elevated lipase. His abdominal discomfort is concerning for possible pancreatitis in these 2 medications especially the fenofibrate needs to be held at this time while this is sorted out. He denies any alcohol use. His triglycerides are over 2000 and could also be contributing to a possible pancreatic inflammation. 4. Coronary artery disease He is status post four-vessel coronary artery bypass surgery remotely. The bypass reports would be obtained and then further recommendations will be made. Thank you for allowing me to participate in the care of your patient. Please don't hesitate to call if any issues arise
--- NOTE | 2017-07-11 11:21 | CASEMGMT ---
RN MIGUEL Face to Face with patient for initial transition planning/care coordination assessment. RN CM introduced self and role at [facility]. Patient sitting at EOB, alert and oriented, family in room. Patient willing to participate in assessment and is able to answer all questions appropriately. Care providers, pharmacy, and demographics verified. See link attached. Patient wishes to discharge home, denies need for home health at this time. Patient states he has no further needs or concerns at this time. CM to follow for discharge planning needs that may arise. Disposition Plan: Patient to discharge home with family support and follow-up plans in place.
[2017-07-11 12:16] LABS: Bedside Glucose 260 mg/dL (70-110)
[2017-07-11 16:10] LABS: Bedside Glucose 280 mg/dL (70-110)
[2017-07-11 22:26] LABS: Lipase 288 U/L (73-393)
[2017-07-11 23:15] LABS: Bedside Glucose 222 mg/dL (70-110)
[2017-07-12] VITALS (14 sets, daily range): BP systolic 93–129; BP diastolic 54–67; PULSE 78–92; RESP 16–18; TEMP 36.4–37.1; O2SAT 93–96
[2017-07-12 06:15] LABS: Anion Gap 8 (5-15); BUN 8 mg/dL (7-18); Calcium,Total 8.5 mg/dL (8.5-10.1); Chloride 102 mmol/L (98-107); Creatinine, Serum 0.73 mg/dL (0.70-1.30); EST Glomerular Filtration Rate 118 mL/min (>60); Est Glom Filt Rate - Afr Amer 143 mL/min (>60); Estimated Creatinine Clearance 115.28 ml/min; Glucose 234 mg/dL (74-106); Potassium 3.7 mmol/L (3.5-5.1); Sodium Level 135 mmol/L (136-145)
[2017-07-12 07:05] LABS: Bedside Glucose 259 mg/dL (70-110)
[2017-07-12] MEDS: Ipratropium/Albuterol Sulfate 3 ML AMPUL.NEB INHALATION ×3 (07:38→19:33)
[2017-07-12] MEDS: 0.9% Normal Saline 1,000 ML 75 ML IV (09:08)
--- NOTE | 2017-07-12 09:09 | PN.CARD_ITS ---
Subjectve: Patient seen and evaluated and appears to be doing well with no complaints abdominal discomfort is markedly improved. Objective: Vital Signs Temp Pulse Resp BP Pulse Ox 98.8 F 82 18 112/65 93 07/12/17 08:57 07/12/17 08:57 07/12/17 08:57 07/12/17 08:57 07/12/17 08:57 Oxygen Flow Rate (L/min) 2 Oxygen Delivery Method Room Air Weight: 198 lb 13.711 oz Body Mass Index (BMI) 27.8 Intake and Output for Last 24 Hours 07/10/17 07/11/17 07/12/17 23:59 23:59 23:59 Intake Total 480 / 480 3690 / 3690 712 / 712 Balance 480 / 480 3690 / 3690 712 / 712 General: Awake, Alert, Oriented x 3 HEENT: PERRL, EOMI, Sclera Non Icteric Neck: Supple, Good ROM, No Lymph Node Enlargement Lungs: Clear to auscultation Cardiovascular: Regular Rhythm, Normal S1, Normal S2, No Murmurs, No Rubs, No Gallops Vascular: No Carotid Bruits, Normal Femoral Pulses, Normal Radial Pulses, Normal Dorsalis Pedal Pulse, Normal Posterior Tibial Pulses Abdomen: Bowel Sounds Present, Soft, Non Tender, No HSM, No Organomegaly Extremities: No Cyanosis, No Clubbing, No edema Neurological: No Focal Motor or Sensory Deficit 07/11/17 07:43: Sodium 133 L, Potassium 4.1, Chloride 99, Carbon Dioxide 25.0, Anion Gap 9, BUN 7, Creatinine 0.78, Est GFR (MDRD) Af Amer 131, Est GFR (MDRD) Non-Af 108, BUN/Creatinine Ratio 8.9 L, Glucose 272 H, Calcium 8.6, Magnesium 1.9, Total Bilirubin 0.60, Triglycerides 2184 H, Cholesterol 321 H, LDL Cholesterol TNP, VLDL Cholesterol TNP, HDL Cholesterol 31 L 07/12/17 05:30: Sodium 135 L, Potassium 3.7, Chloride 102, Carbon Dioxide 25.0, Anion Gap 8, BUN 8, Creatinine 0.73, Est GFR (MDRD) Af Amer 143, Est GFR (MDRD) Non-Af 118, BUN/Creatinine Ratio 11.0, Glucose 234 H, Calcium 8.5 Rhythm: EKG: ECHO: Stress Test: Cardiac Cath: PCI: CT Surgery: Holter monitor: EPS: PPM: CXR: Chest CT Scan: Medical Necessity - Tobacco Use Smoking Status: Current every day smoker Tobacco Use: Cigarettes Assessment/Plan 1. Abnormal cardiac enzymes. Mr. Corbett presents with epigastric discomfort and mildly abnormal cardiac enzymes. He does not have any EKG changes and at this time it is not clear to me whether this is secondary to a primary coronary ischemic event secondary to demand ischemia. My recommendation will be for him to continue on aspirin and beta-jonatan as well as his ARB. His echocardiogram demonstrated preserved left ventricular ejection fraction with no wall motion abnormalities present. At this time there are no plans to perform any cardiac additional workup. Patient has a follow-up with his medical office technician on August 10 2. Hypertension. He does have a history of hypertension on beta-jonatan and ARB. My recommendation will be to increase his ARB to 100 mg a day. Amlodipine has been added to his regimen. 3. Hyperlipidemia He is on a statin as well as fenofibrate and he does have abnormal liver function tests as well as an elevated lipase. His abdominal discomfort is concerning for possible pancreatitis in these 2 medications especially the fenofibrate needs to be held at this time while this is sorted out. He denies any alcohol use. His triglycerides are over 2000 and could also be contributing to a possible pancreatic inflammation. His triglycerides should hopefully improve as his diabetes is treated. 4. Coronary artery disease He is status post four-vessel coronary artery bypass surgery remotely. The bypass reports would be obtained and then further recommendations will be made. Thank you for allowing me to participate in the care of your patient. Please don't hesitate to call if any issues arise
[2017-07-12] MEDS: Aspirin 81 MG TAB.CHEW PO (09:16)
[2017-07-12] MEDS: Losartan Potassium 50 MG Tablet PO (09:16)
[2017-07-12] MEDS: Metoprolol(XL)Succ 50 MG Tablet PO (09:17)
[2017-07-12] MEDS: amLODIPine 2.5 MG Tablet PO (09:17)
[2017-07-12] MEDS: Atorvastatin Calcium 20 MG Tablet PO (09:17)
[2017-07-12 11:56] LABS: Bedside Glucose 224 mg/dL (70-110)
--- NOTE | 2017-07-12 15:45 | PN_ITS ---
Subjective: Denies abdominal pain, nausea. No vomiting. He has been OK with getting the insulin injections. He is complaining of being anxious. denies feeling depressed. Wants to quit smoking and feels the nicotine patch is helping with cravings Objective: - Physical Exam General: Alert, Oriented x3, Cooperative, Well developed, Well nourished, - - Looks fatigued HEENT: Atraumatic, PERRLA, EOMI Oral: Moist Mucosa, - - Very poor dentition Neck: Supple, No JVD, Negative Carotid Bruits, No Nodes, No Nuchal Rigidity, Trachea Midline Lungs: Clear to auscultation, No wheeze, No rales, Diminished Cardiovascular: Regular rate, Regular Rhythm, Normal S1, Normal S2, No rub noted , No Gallop, - - Healed cicatrix secondary to prior CABG Abdomen: Bowel Sounds Present, Soft, Non-Distended, nontender Extremities: No clubbing, No cyanosis, No edema, Peripheral Pulses Normal Skin: No rashes, No breakdown Neurological: Cranial nerves II-XII grossly intact, Neuro grossly intact Psych/Mental Status: Normal Affect, Appropriate - Physical Exam Vital Signs Temp Pulse Resp BP Pulse Ox 97.6 F L 82 18 109/67 93 07/12/17 15:00 07/12/17 15:00 07/12/17 15:00 07/12/17 15:00 07/12/17 15:00 Oxygen Flow Rate (L/min) 2 Oxygen Delivery Method Room Air Weight: 198 lb 13.711 oz Body Mass Index (BMI) 27.8 Intake and Output for Last 24 Hours 07/10/17 07/11/17 07/12/17 23:59 23:59 23:59 Intake Total 480 / 480 3690 / 3690 2580 / 2580 Balance 480 / 480 3690 / 3690 2580 / 2580 Laboratory Tests Past 24 Hrs 07/11/17 07/12/17 21:20 05:30 Sodium 135 L Potassium 3.7 Chloride 102 Carbon Dioxide 25.0 Anion Gap 8 BUN 8 Creatinine 0.73 Estim Creat Clear Calc 115.28 Est GFR (MDRD) Af Amer 143 Est GFR (MDRD) Non-Af 118 BUN/Creatinine Ratio 11.0 Glucose 234 H Calcium 8.5 Lipase 288 POC Glucose 07/12/17 07/12/17 07/11/17 11:50 06:42 22:15 POC Glucose 224 H 259 H 222 H 07/11/17 16:01 POC Glucose 280 H Medical Necessity - Tobacco Use Smoking Status: Current every day smoker Tobacco Use: Cigarettes Assessment/Plan Impressions 1. Acute pancreatitis-initially thought to be secondary to fenofibrate however patient admits to not taking his medications. I suspect it may be due to hyperlipidemia. Will continue clear liquid diet and advance diet as tolerated when the lipase starts to decline. 2. Noncardiac chest pain with mildly elevated troponin likely secondary to acute pancreatitis and demand ischemia. Seen by Dr. Quinn. No plan for intervention at this time. 3. Diabetes mellitus type 2-uncontrolled. Patient is agreeable to initiating insulin. 4. Coronary artery disease with history of CABG ?4 vessels in 2006. Continue aspirin, beta jonatan, ARB. Will likely also need a statin. 5. Hypertension 6. Tobacco dependence 7. Poor dental hygiene 8. COPD Continue to adjust insulin as needed Advance diet Start BuSpar 5 mg 3 times daily for control of anxiety Will need a primary care physician at discharge NicoDerm has been effective in controlling his cravings and he would like a prescription at discharge which I will provide. Code Visit Inpatient E&M: 53186 Subs Hosp L2
[2017-07-12 17:56] LABS: Bedside Glucose 205 mg/dL (70-110)
[2017-07-12] MEDS: busPIRone 5 MG Tablet PO (22:00)
[2017-07-13] VITALS (11 sets, daily range): BP systolic 98–127; BP diastolic 56–71; PULSE 80–100; RESP 14–18; TEMP 36.4–36.7; O2SAT 94–95
[2017-07-13 00:25] LABS: Bedside Glucose 172 mg/dL (70-110)
[2017-07-13] MEDS: busPIRone 5 MG Tablet PO ×3 (06:01→21:07)
[2017-07-13 06:50] LABS: Bedside Glucose 234 mg/dL (70-110)
[2017-07-13] MEDS: Ipratropium/Albuterol Sulfate 3 ML AMPUL.NEB INHALATION ×3 (07:31→19:01)
[2017-07-13] MEDS: Atorvastatin Calcium 20 MG Tablet PO (09:19)
[2017-07-13] MEDS: Losartan Potassium 50 MG Tablet PO (09:19)
[2017-07-13] MEDS: amLODIPine 2.5 MG Tablet PO (09:19)
[2017-07-13] MEDS: Metoprolol(XL)Succ 50 MG Tablet PO (09:20)
[2017-07-13] MEDS: Aspirin 81 MG TAB.CHEW PO (09:20)
[2017-07-13] MEDS: Pantoprazole Sodium 40 MG Tablet PO (09:20)
[2017-07-13 11:36] LABS: Bedside Glucose 252 mg/dL (70-110)
--- NOTE | 2017-07-13 13:31 | PCM.PROGNOTE ---
Subjective: Afebrile, vital signs stable. Blood sugars are coming under better control and the patient has been giving his own insulin. He is tolerating the advance in his diet and denies abdominal pain, nausea, vomiting. He is also tolerating BuSpar and feels less anxious. - Physical Exam General: Alert, Oriented x3, Cooperative, No apparent distress, Well developed, Well nourished HEENT: Atraumatic, PERRLA Oral: Moist Mucosa, No Gingival or Mucosal Lesions/ Ulcerations, - - very poor dentition Neck: Supple, No JVD, Negative Carotid Bruits, No Nodes, No Nuchal Rigidity, Trachea Midline Lungs: Clear to auscultation, No rhonchi, No wheeze, No rales, Diminished Cardiovascular: Regular rate, Regular Rhythm, Normal S1, Normal S2, No murmurs, No rub noted, No Gallop, - - Telemetry shows normal sinus rhythm with no significant ectopy. Abdomen: Bowel Sounds Present, Soft, Non Tender, Non-Distended Extremities: No clubbing, No cyanosis, No edema, Peripheral Pulses Normal Skin: No rashes, No breakdown Musculoskeletal: No Muscle Wasting Neurological: Cranial nerves II-XII grossly intact, Neuro grossly intact Psych/Mental Status: Normal Affect, Appropriate Vital Signs Temp Pulse Resp BP Pulse Ox 98.0 F 100 16 127/71 H 94 07/13/17 09:00 07/13/17 11:12 07/13/17 09:00 07/13/17 09:00 07/13/17 09:00 Oxygen Flow Rate (L/min) 2 Oxygen Delivery Method Room Air Weight: 198 lb 13.711 oz Body Mass Index (BMI) 27.8 Intake and Output for Last 24 Hours 07/11/17 07/12/17 07/13/17 23:59 23:59 23:59 Intake Total 3690 / 3690 4106 / 4106 240 / 240 Balance 3690 / 3690 4106 / 4106 240 / 240 POC Glucose 07/13/17 07/13/17 07/12/17 11:24 06:44 21:12 POC Glucose 252 H 234 H 172 H 07/12/17 16:32 POC Glucose 205 H Medical Necessity - Tobacco Use Smoking Status: Current every day smoker Tobacco Use: Cigarettes Assessment/Plan Impressions 1. Acute pancreatitis-initially thought to be secondary to fenofibrate however patient admits to not taking his medications. I suspect it may be due to hyperlipidemia. Will continue clear liquid diet and advance diet as tolerated when the lipase starts to decline. 2. Noncardiac chest pain with mildly elevated troponin likely secondary to acute pancreatitis and demand ischemia. Seen by Dr. Quinn. No plan for intervention at this time. 3. Diabetes mellitus type 2-uncontrolled. Patient is agreeable to initiating insulin. 4. Coronary artery disease with history of CABG ?4 vessels in 2006. Continue aspirin, beta jonatan, ARB. Will likely also need a statin. 5. Hypertension 6. Tobacco dependence 7. Poor dental hygiene 8. COPD Adjust insulin Veronica has been helpful probable DC in the AM Code Visit Inpatient E&M: 04416 Subs Hosp L1
[2017-07-13 16:46] LABS: Bedside Glucose 229 mg/dL (70-110)
--- NOTE | 2017-07-13 18:56 | NURSING ---
Reviewed and agreed on all charting with Domenic Suggs RN
[2017-07-13 21:16] LABS: Bedside Glucose 202 mg/dL (70-110)
[2017-07-14] VITALS (7 sets, daily range): BP systolic 107–121; BP diastolic 52–63; PULSE 77–88; RESP 16–20; TEMP 36.4–36.6; O2SAT 95–97
[2017-07-14] MEDS: busPIRone 5 MG Tablet PO ×2 (05:43→13:29)
[2017-07-14 06:43] LABS: Anion Gap 8 (5-15); BUN 12 mg/dL (7-18); BUN/Creat Ratio 13.2 RATIO (10-20); Calcium,Total 8.7 mg/dL (8.5-10.1); Chloride 103 mmol/L (98-107); Creatinine, Serum 0.91 mg/dL (0.70-1.30); EST Glomerular Filtration Rate 92 mL/min (>60); Est Glom Filt Rate - Afr Amer 111 mL/min (>60); Estimated Creatinine Clearance 92.48 ml/min; Glucose 219 mg/dL (74-106); Magnesium 1.9 mg/dL (1.6-2.6); Potassium 4.1 mmol/L (3.5-5.1); Sodium Level 137 mmol/L (136-145); Triglycerides 1122 mg/dL
[2017-07-14 06:45] LABS: Bedside Glucose 247 mg/dL (70-110)
[2017-07-14] MEDS: Ipratropium/Albuterol Sulfate 3 ML AMPUL.NEB INHALATION ×3 (07:20→15:22)
[2017-07-14] MEDS: Aspirin 81 MG TAB.CHEW PO (09:02)
[2017-07-14] MEDS: Atorvastatin Calcium 20 MG Tablet PO (09:02)
[2017-07-14] MEDS: Losartan Potassium 50 MG Tablet PO (09:02)
[2017-07-14] MEDS: Metoprolol(XL)Succ 50 MG Tablet PO (09:03)
[2017-07-14] MEDS: Pantoprazole Sodium 40 MG Tablet PO (09:03)
[2017-07-14] MEDS: amLODIPine 2.5 MG Tablet PO (09:03)
[2017-07-14 11:21] LABS: Bedside Glucose 284 mg/dL (70-110)
--- NOTE | 2017-07-14 15:13 | PCM.DC.SUM ---
Discharge Date and Diagnosis Date of Admission: 07/10/17 Date of Discharge: 07/14/17 - Primary Discharge Diagnosis Active and Suspected Problems Acute pancreatitis (Acute) secondary to hypertriglyceridemia Chest pain (Acute) - non-cardiac Elevated troponin I level (Acute) - due to demand ischemia - Secondary Discharge Diagnosis Chronic Problems Type 2 diabetes mellitus - uncontrolled Hyperlipidemia Hypertriglyceridemia HTN (hypertension) (Chronic) Smoker (Chronic) CAD (coronary artery disease) (Chronic) s/p CABG X4 2006 Non compliance w medication regimen (Chronic) Fatty liver (Chronic) GERD (gastroesophageal reflux disease) (Chronic) Hospital Course and Treatment Imaging Results: Clinical Impression(s) from Imaging Studies Chest X-Ray 07/10/17 06:41 IMPRESSION: Persistent increased markings at the lung bases suggestive scarring with possible superimposed atelectasis at the left lung base. Electronically Signed: Sam Duncan MD at 8:02 EDT Tel [phone], Service support , Chest CTA 07/10/17 12:40 IMPRESSION: There is no evidence of pulmonary embolism. Bibasilar patchy infiltrates. Electronically Signed: Sam Duncan MD at 14:03 EDT Tel [phone], Service support , Abdomen/Pelvis CT 07/10/17 12:41 IMPRESSION: Bibasilar infiltrates. Fatty infiltration of the liver. Sigmoid diverticulosis. Left inguinal hernia. Electronically Signed: Sam Duncan MD at 14:05 EDT Tel [phone], Service support , Laboratory Results - last 24 hr 07/13/17 07/13/17 07/14/17 16:35 21:04 05:40 Sodium 137 Potassium 4.1 Chloride 103 Carbon Dioxide 26.0 Anion Gap 8 BUN 12 Creatinine 0.91 Estim Creat Clear Calc 92.48 Est GFR (MDRD) Af Amer 111 Est GFR (MDRD) Non-Af 92 BUN/Creatinine Ratio 13.2 Glucose 219 H Calcium 8.7 Magnesium 1.9 Triglycerides 1122 H POC Glucose 229 H 202 H 07/14/17 07/14/17 06:42 11:05 Sodium Potassium Chloride Carbon Dioxide Anion Gap BUN Creatinine Estim Creat Clear Calc Est GFR (MDRD) Af Amer Est GFR (MDRD) Non-Af BUN/Creatinine Ratio Glucose Calcium Magnesium Triglycerides POC Glucose [address] Calos [facility] Operations: None Procedures: 2-D Echocardiogram Summary of Care Provided: Patient is a 57-year-old male with a past medical history of coronary artery disease, CABG ?4 vessels in 2006, hypertension, hyperlipidemia, tobacco dependency, diabetes mellitus type 2, noncompliance with medications, right carotid endarterectomy, GERD and fatty infiltration of the liver who presented to the emergency room at [facility] on 07/10/2017 complaining of shortness of breath, epigastric pain and nausea. Pain started after he ate chicken wings. He denied any alcohol use. Vital signs at presentation to the emergency room were temperature 97.4, pulse rate 72, blood pressure 182/95, respiratory rate 23 and he was 96% saturated on room air. He admitted to not seeing his primary care doctor in quite some time. Significant lab included a low sodium at 130 and a low chloride at 96. BUN was 11 with a creatinine of 0.65. Random glucose was 343, AST was 48 and ALT was 77. Bilirubin and alkaline phosphatase were within normal limits. Initial troponin was elevated at 0.16 and has trended down. Lipase was increased at 848. Chest x-ray did not show any infiltrates, pulmonary vascular congestion or pleural effusion. CT scan of the abdomen and pelvis showed diverticulosis, fatty infiltration of the liver, bibasilar infiltrates versus atelectasis, normal gallbladder and normal pancreas. EKG showed normal sinus rhythm with no ischemic changes. Blood draw showed Lipemic serum. He was admitted to a monitored bed on PCU and serial cardiac enzymes were ordered. Dr. Quinn was consulted. Dr. Quinn felt the mild elevation in troponin was possibly secondary to demand ischemia due to acute pancreatitis. EKG showed no ischemic changes and troponin was only mildly elevated and peaked at 0.16 and then trended down. He recommended we continue with aspirin, beta devon and an ARB and obtain an echocardiogram. The echocardiogram showed normal left ventricular systolic function with a 70% ejection fraction. There was no evidence of diastolic dysfunction. He had no further chest discomfort and no further workup was indicated at this time. A lipid panel was obtained and the triglycerides were 2184 with a cholesterol of 321 and an HDL of 31. He admitted to noncompliance with medications and diet. In the past he has been resistant to the use of insulin however he was started on NovoLog 70/30 insulin and instructed in the proper use of a flex pen and insulin administration. Prior to discharge he was comfortable with giving himself insulin. He was seen by the dietitian and instructed in a proper diet during his hospital stay. Prior to discharge the blood sugars were in the low to mid 200s and the insulin was adjusted at discharge. He is going to follow-up with ZARA Sawant to get his blood sugars controlled. A Nicotine patch was applied at admission and hen expressed a desire to stop smoking. He was provided with a prescription for Nicoderm at discharge. On the date of discharge the triglycerides had come down to 1122. BMP was unremarkable and his fasting blood sugar was 219. He had no abdominal pain and no nausea. On physical examination the lungs are clear to auscultation and the heart had a regular rate and rhythm. The abdomen was soft, nontender with normal bowel sounds. He will follow-up with Dr. Ant Nuñez in the office to establish care. He will also follow-up with Ligia sawant for diabetic management. He was started on Buspar in the hospital for anxiety and responded favorably. He was given a RX at OR. This note was generated with [facility] dictation software. It may contain incorrect words, spelling, and punctuation that were not noted in checking the note before signing. Home Medications: Medications to take at Discharge Albuterol Inhaler [Ventolin Hfa] 1 - 2 puff INHALATION Q4H PRN PRN #1 inhaler 06/11/14 Aspirin [Aspirin, Baby] 81 mg PO DAILY@0800 04/08/17 [place]-3 Fatty Acids/Fish Oil [Fish Oil 1,000 mg Capsule] 2 each PO DAILY 07/10/17 Fenofibrate,Micronized [Fenofibrate] 1 tab PO DAILY #30 cap 07/14/17 Insulin Human 70/30 [Novolog Mix 70-30 Flexpen Syrn] 0 units SC BIDCM #10 flexpen 07/14/17 Losartan Potassium 100 mg PO DAILY #30 tab 07/14/17 Metoprolol(XL)Succ [Toprol Xl (Beta Devon)] 50 mg PO DAILY #30 tab 07/14/17 Nicotine [Nicoderm] 14 mg TRANSDERM. DAILY PRN PRN #28 patch 07/14/17 Omeprazole [Prilosec] 20 mg PO BID #60 cap 07/14/17 Pen Needle, Diabetic [Carefine Pen Needle] 1 ea MC BID #60 dis.needle 07/14/17 Simvastatin 40 mg PO DAILY #30 tab 07/14/17 Sitagliptin Phosphate [Januvia] 50 mg PO DAILY #30 tab 07/14/17 busPIRone [Buspar] 5 mg PO TID #90 tab 07/14/17 Following Prescrptions Were Given to Patient: Fenofibrate,Micronized [Fenofibrate] 1 tab PO DAILY #30 cap Losartan Potassium 100 mg PO DAILY #30 tab Metoprolol(XL)Succ [Toprol Xl (Beta Devon)] 50 mg PO DAILY #30 tab Nicotine [Nicoderm] 14 mg TRANSDERM. DAILY PRN PRN #28 patch PRN Reason: nicotine cravings Simvastatin 40 mg PO DAILY #30 tab Sitagliptin Phosphate [Januvia] 50 mg PO DAILY #30 tab Insulin Human 70/30 [Novolog Mix 70-30 Flexpen Syrn] 0 units SC BIDCM #10 flexpen Omeprazole [Prilosec] 20 mg PO BID #60 cap Pen Needle, Diabetic [Carefine Pen Needle] 1 ea MC BID #60 dis.needle busPIRone [Buspar] 5 mg PO TID #90 tab Primary Care Physician: Darrius Penny DO [Primary Care Provider] - Patient Instructions: Understanding Pancreatitis, MyPlate Worksheet: 2,000 Calories Disposition: Home Minutes spent on discharge:: 30 Medical Necessity - Tobacco Use Smoking Status: Current every day smoker Tobacco Use: Cigarettes Meaningful Use Info Meaningful Use Diagnoses (Choose all that apply): None applicable Code Visit Inpatient E&M: 05434 Disch Hosp
--- NOTE | 2017-07-14 15:18 | DS.PCM_ITS ---
Discharge Date and Diagnosis Date of Admission: 07/10/17 Date of Discharge: 07/14/17 - Primary Discharge Diagnosis Active and Suspected Problems Acute pancreatitis (Acute) secondary to hypertriglyceridemia Chest pain (Acute) - non-cardiac Elevated troponin I level (Acute) - due to demand ischemia - Secondary Discharge Diagnosis Chronic Problems Type 2 diabetes mellitus - uncontrolled Hyperlipidemia Hypertriglyceridemia HTN (hypertension) (Chronic) Smoker (Chronic) CAD (coronary artery disease) (Chronic) s/p CABG X4 2006 Non compliance w medication regimen (Chronic) Fatty liver (Chronic) GERD (gastroesophageal reflux disease) (Chronic) Hospital Course and Treatment Imaging Results: Clinical Impression(s) from Imaging Studies Chest X-Ray 07/10/17 06:41 IMPRESSION: Persistent increased markings at the lung bases suggestive scarring with possible superimposed atelectasis at the left lung base. Electronically Signed: Sam Duncan MD at 8:02 EDT Tel [phone], Service support , Chest CTA 07/10/17 12:40 IMPRESSION: There is no evidence of pulmonary embolism. Bibasilar patchy infiltrates. Electronically Signed: Sam Duncan MD at 14:03 EDT Tel [phone], Service support , Abdomen/Pelvis CT 07/10/17 12:41 IMPRESSION: Bibasilar infiltrates. Fatty infiltration of the liver. Sigmoid diverticulosis. Left inguinal hernia. Electronically Signed: Sam Duncan MD at 14:05 EDT Tel [phone], Service support , Laboratory Results - last 24 hr 07/13/17 07/13/17 07/14/17 16:35 21:04 05:40 Sodium 137 Potassium 4.1 Chloride 103 Carbon Dioxide 26.0 Anion Gap 8 BUN 12 Creatinine 0.91 Estim Creat Clear Calc 92.48 Est GFR (MDRD) Af Amer 111 Est GFR (MDRD) Non-Af 92 BUN/Creatinine Ratio 13.2 Glucose 219 H Calcium 8.7 Magnesium 1.9 Triglycerides 1122 H POC Glucose 229 H 202 H 07/14/17 07/14/17 06:42 11:05 Sodium Potassium Chloride Carbon Dioxide Anion Gap BUN Creatinine Estim Creat Clear Calc Est GFR (MDRD) Af Amer Est GFR (MDRD) Non-Af BUN/Creatinine Ratio Glucose Calcium Magnesium Triglycerides POC Glucose [address] Calos [facility] Operations: None Procedures: 2-D Echocardiogram Summary of Care Provided: Patient is a 57-year-old male with a past medical history of coronary artery disease, CABG ?4 vessels in 2006, hypertension, hyperlipidemia, tobacco dependency, diabetes mellitus type 2, noncompliance with medications, right carotid endarterectomy, GERD and fatty infiltration of the liver who presented to the emergency room at [facility] on 07/10/2017 complaining of shortness of breath, epigastric pain and nausea. Pain started after he ate chicken wings. He denied any alcohol use. Vital signs at presentation to the emergency room were temperature 97.4, pulse rate 72, blood pressure 182/95, respiratory rate 23 and he was 96% saturated on room air. He admitted to not seeing his primary care doctor in quite some time. Significant lab included a low sodium at 130 and a low chloride at 96. BUN was 11 with a creatinine of 0.65. Random glucose was 343, AST was 48 and ALT was 77. Bilirubin and alkaline phosphatase were within normal limits. Initial troponin was elevated at 0.16 and has trended down. Lipase was increased at 848. Chest x-ray did not show any infiltrates, pulmonary vascular congestion or pleural effusion. CT scan of the abdomen and pelvis showed diverticulosis, fatty infiltration of the liver, bibasilar infiltrates versus atelectasis, normal gallbladder and normal pancreas. EKG showed normal sinus rhythm with no ischemic changes. Blood draw showed Lipemic serum. He was admitted to a monitored bed on PCU and serial cardiac enzymes were ordered. Dr. Quinn was consulted. Dr. Quinn felt the mild elevation in troponin was possibly secondary to demand ischemia due to acute pancreatitis. EKG showed no ischemic changes and troponin was only mildly elevated and peaked at 0.16 and then trended down. He recommended we continue with aspirin, beta devon and an ARB and obtain an echocardiogram. The echocardiogram showed normal left ventricular systolic function with a 70% ejection fraction. There was no evidence of diastolic dysfunction. He had no further chest discomfort and no further workup was indicated at this time. A lipid panel was obtained and the triglycerides were 2184 with a cholesterol of 321 and an HDL of 31. He admitted to noncompliance with medications and diet. In the past he has been resistant to the use of insulin however he was started on NovoLog 70/30 insulin and instructed in the proper use of a flex pen and insulin administration. Prior to discharge he was comfortable with giving himself insulin. He was seen by the dietitian and instructed in a proper diet during his hospital stay. Prior to discharge the blood sugars were in the low to mid 200s and the insulin was adjusted at discharge. He is going to follow-up with ZARA Sawant to get his blood sugars controlled. A Nicotine patch was applied at admission and hen expressed a desire to stop smoking. He was provided with a prescription for Nicoderm at discharge. On the date of discharge the triglycerides had come down to 1122. BMP was unremarkable and his fasting blood sugar was 219. He had no abdominal pain and no nausea. On physical examination the lungs are clear to auscultation and the heart had a regular rate and rhythm. The abdomen was soft , nontender with normal bowel sounds. He will follow-up with Dr. Ant Nuñez in the office to establish care. He will also follow-up with Ligia sawant for diabetic management. He was started on Buspar in the hospital for anxiety and responded favorably. He was given a RX at [place]. This note was generated with [employer] dictation software. It may contain incorrect words, spelling, and punctuation that were not noted in checking the note before signing. Home Medications: Medications to take at Discharge Albuterol Inhaler [Ventolin Hfa] 1 - 2 puff INHALATION Q4H PRN PRN #1 inhaler Aspirin [Aspirin, Baby] 81 mg PO DAILY@0800 04/08/17 [place]-3 Fatty Acids/Fish Oil [Fish Oil 1,000 mg Capsule] 2 each PO DAILY Fenofibrate,Micronized [Fenofibrate] 1 tab PO DAILY #30 cap 07/14/17 Insulin Human 70/30 [Novolog Mix 70-30 Flexpen Syrn] 0 units SC BIDCM #10 flexpen 07/14/17 Losartan Potassium 100 mg PO DAILY #30 tab 07/14/17 Metoprolol(XL)Succ [Toprol Xl (Beta Devon)] 50 mg PO DAILY #30 tab 07/14/17 Nicotine [Nicoderm] 14 mg TRANSDERM. DAILY PRN PRN #28 patch 07/14/17 Omeprazole [Prilosec] 20 mg PO BID #60 cap 07/14/17 Pen Needle, Diabetic [Carefine Pen Needle] 1 ea MC BID #60 dis.needle 07/14/17 Simvastatin 40 mg PO DAILY #30 tab 07/14/17 Sitagliptin Phosphate [Januvia] 50 mg PO DAILY #30 tab 07/14/17 busPIRone [Buspar] 5 mg PO TID #90 tab 07/14/17 Following Prescrptions Were Given to Patient: Fenofibrate,Micronized [Fenofibrate] 1 tab PO DAILY #30 cap Losartan Potassium 100 mg PO DAILY #30 tab Metoprolol(XL)Succ [Toprol Xl (Beta Devon)] 50 mg PO DAILY #30 tab Nicotine [Nicoderm] 14 mg TRANSDERM. DAILY PRN PRN #28 patch PRN Reason: nicotine cravings Simvastatin 40 mg PO DAILY #30 tab Sitagliptin Phosphate [Januvia] 50 mg PO DAILY #30 tab Insulin Human 70/30 [Novolog Mix 70-30 Flexpen Syrn] 0 units SC BIDCM #10 flexpen Omeprazole [Prilosec] 20 mg PO BID #60 cap Pen Needle, Diabetic [Carefine Pen Needle] 1 ea MC BID #60 dis.needle busPIRone [Buspar] 5 mg PO TID #90 tab Primary Care Physician: Darrius Penny DO [Primary Care Provider] - Patient Instructions: Understanding Pancreatitis, MyPlate Worksheet: 2,000 Calories Disposition: Home Minutes spent on discharge:: 30 Medical Necessity - Tobacco Use Smoking Status: Current every day smoker Tobacco Use: Cigarettes Meaningful Use Info Meaningful Use Diagnoses (Choose all that apply): None applicable Code Visit Inpatient E&M: 85488 Disch Hosp
--- NOTE | 2017-07-14 15:47 | PCM.DC ---
- Discharge Diagnoses Current Active Problems: Current Active and Chronic Problems Acute pancreatitis (Acute) Chest pain (Acute) Elevated troponin I level (Acute) Type 2 diabetes mellitus with hyperglycemia (Chronic) non compliance Mixed hyperlipidemia due to type 2 diabetes mellitus (Chronic) lipemic serum clinically HTN (hypertension) (Chronic) Smoker (Chronic) CAD (coronary artery disease) (Chronic) s/p CABG X4 2006 Non compliance w medication regimen (Chronic) Fatty liver (Chronic) GERD (gastroesophageal reflux disease) (Chronic) You will use the following diet at home:: Calorie/Carbohydrate Controlled (specify 1200, 1400, etc) - low fat, low salt, carb controlled Your food should be the consistency of: Regular Your liquids should be the consistency of: Regular/Thin Discharge Activity: Return to Normal Activity Return to work on:: 07/20/17 Call your doctor if you observe: Fever of 101 or Higher, Shortness of breath, Dizziness, Fainting spells, Swelling in the ankles, Chest pain, - - Nausea, vomiting, recurrent abdominal pain Instructions: MyPlate Worksheet: 2,000 Calories, Understanding Pancreatitis Additional Instructions: 1. I am referring you to a nurse practitioner named Ligia Sawant to assist you in getting your blood sugars controlled. 2. I have give garrett a prescription for a nicotine patch to help you stop smoking. 3. You have been taking a medication called Veronica in the hospital and this helps to control anxiety.....it can also help you stop smoking. It is not addictive. 4. You should go see a dentist.....broken off teeth can lead to bacteria in the blood which can lead to an infection on 1 of the heart valves. No lie! 5. I gave you prescriptions for all the meds I want you to take....in case you ran out of meds at home. 6. Nice to meet you and start taking better care of yourself.......you have grandkids to watch grow! Pending Tests on Discharge: none Allergies/Adverse Reactions: Allergies amoxicillin Allergy (Verified 07/10/17 07:20) Angioedema lindane Allergy (Verified 07/10/17 07:24) Rash Medications to take at Discharge Albuterol Inhaler [Ventolin Hfa] 1 - 2 puff INHALATION Q4H PRN PRN #1 inhaler 06/11/14 Aspirin [Aspirin, Baby] 81 mg PO DAILY@0800 04/08/17 [place]-3 Fatty Acids/Fish Oil [Fish Oil 1,000 mg Capsule] 2 each PO DAILY 07/10/17 Fenofibrate,Micronized [Fenofibrate] 1 tab PO DAILY #30 cap 07/14/17 Insulin Human 70/30 [Novolog Mix 70-30 Flexpen Syrn] 0 units SC BIDCM #10 flexpen 07/14/17 Losartan Potassium 100 mg PO DAILY #30 tab 07/14/17 Metoprolol(XL)Succ [Toprol Xl (Beta Devon)] 50 mg PO DAILY #30 tab 07/14/17 Nicotine [Nicoderm] 14 mg TRANSDERM. DAILY PRN PRN #28 patch 07/14/17 Omeprazole [Prilosec] 20 mg PO BID #60 cap 07/14/17 Simvastatin 40 mg PO DAILY #30 tab 07/14/17 Sitagliptin Phosphate [Januvia] 50 mg PO DAILY #30 tab 07/14/17 busPIRone [Buspar] 5 mg PO TID #90 tab 07/14/17 The following prescriptions were given: Fenofibrate,Micronized [Fenofibrate] 1 tab PO DAILY #30 cap Losartan Potassium 100 mg PO DAILY #30 tab Metoprolol(XL)Succ [Toprol Xl (Beta Devon)] 50 mg PO DAILY #30 tab Nicotine [Nicoderm] 14 mg TRANSDERM. DAILY PRN PRN #28 patch PRN Reason: nicotine cravings Simvastatin 40 mg PO DAILY #30 tab Sitagliptin Phosphate [Januvia] 50 mg PO DAILY #30 tab Insulin Human 70/30 [Novolog Mix 70-30 Flexpen Syrn] 0 units SC BIDCM #10 flexpen Omeprazole [Prilosec] 20 mg PO BID #60 cap busPIRone [Buspar] 5 mg PO TID #90 tab Please follow up with your Primary Care Physician in: [place] Please Follow Up With: Ant Munguia DO When: VIRGEN....tell the office you were just in the hospital Please Follow Up With: Ligia Sawant NP-C When: VIRGEN Proposed Discharge Date: 07/14/17
--- NOTE | 2017-07-14 15:57 | DCINST_ITS ---
- Discharge Diagnoses Current Active Problems: Current Active and Chronic Problems Acute pancreatitis (Acute) Chest pain (Acute) Elevated troponin I level (Acute) Type 2 diabetes mellitus with hyperglycemia (Chronic) non compliance Mixed hyperlipidemia due to type 2 diabetes mellitus (Chronic) lipemic serum clinically HTN (hypertension) (Chronic) Smoker (Chronic) CAD (coronary artery disease) (Chronic) s/p CABG X4 2006 Non compliance w medication regimen (Chronic) Fatty liver (Chronic) GERD (gastroesophageal reflux disease) (Chronic) You will use the following diet at home:: Calorie/Carbohydrate Controlled ( specify 1200, 1400, etc) - low fat, low salt, carb controlled Your food should be the consistency of: Regular Your liquids should be the consistency of: Regular/Thin Discharge Activity: Return to Normal Activity Return to work on:: 07/20/17 Call your doctor if you observe: Fever of 101 or Higher, Shortness of breath, Dizziness, Fainting spells, Swelling in the ankles, Chest pain, - - Nausea, vomiting, recurrent abdominal pain Instructions: MyPlate Worksheet: 2,000 Calories, Understanding Pancreatitis Additional Instructions: 1. I am referring you to a nurse practitioner named Ligia Sawant to assist you in getting your blood sugars controlled. 2. I have give garrett a prescription for a nicotine patch to help you stop smoking. 3. You have been taking a medication called Veronica in the hospital and this helps to control anxiety.....it can also help you stop smoking. It is not addictive. 4. You should go see a dentist.....broken off teeth can lead to bacteria in the blood which can lead to an infection on 1 of the heart valves. No lie! 5. I gave you prescriptions for all the meds I want you to take....in case you ran out of meds at home. 6. Nice to meet you and start taking better care of yourself.......you have grandkids to watch grow! Pending Tests on Discharge: none Allergies/Adverse Reactions: Allergies amoxicillin Allergy (Verified 07/10/17 07:20) Angioedema lindane Allergy (Verified 07/10/17 07:24) Rash Medications to take at Discharge Albuterol Inhaler [Ventolin Hfa] 1 - 2 puff INHALATION Q4H PRN PRN #1 inhaler Aspirin [Aspirin, Baby] 81 mg PO DAILY@0800 04/08/17 [place]-3 Fatty Acids/Fish Oil [Fish Oil 1,000 mg Capsule] 2 each PO DAILY Fenofibrate,Micronized [Fenofibrate] 1 tab PO DAILY #30 cap 07/14/17 Insulin Human 70/30 [Novolog Mix 70-30 Flexpen Syrn] 0 units SC BIDCM #10 flexpen 07/14/17 Losartan Potassium 100 mg PO DAILY #30 tab 07/14/17 Metoprolol(XL)Succ [Toprol Xl (Beta Devon)] 50 mg PO DAILY #30 tab 07/14/17 Nicotine [Nicoderm] 14 mg TRANSDERM. DAILY PRN PRN #28 patch 07/14/17 Omeprazole [Prilosec] 20 mg PO BID #60 cap 07/14/17 Simvastatin 40 mg PO DAILY #30 tab 07/14/17 Sitagliptin Phosphate [Januvia] 50 mg PO DAILY #30 tab 07/14/17 busPIRone [Buspar] 5 mg PO TID #90 tab 07/14/17 The following prescriptions were given: Fenofibrate,Micronized [Fenofibrate] 1 tab PO DAILY #30 cap Losartan Potassium 100 mg PO DAILY #30 tab Metoprolol(XL)Succ [Toprol Xl (Beta Devon)] 50 mg PO DAILY #30 tab Nicotine [Nicoderm] 14 mg TRANSDERM. DAILY PRN PRN #28 patch PRN Reason: nicotine cravings Simvastatin 40 mg PO DAILY #30 tab Sitagliptin Phosphate [Januvia] 50 mg PO DAILY #30 tab Insulin Human 70/30 [Novolog Mix 70-30 Flexpen Syrn] 0 units SC BIDCM #10 flexpen Omeprazole [Prilosec] 20 mg PO BID #60 cap busPIRone [Buspar] 5 mg PO TID #90 tab Please follow up with your Primary Care Physician in: [place] Please Follow Up With: Ant Munguia DO When: VIRGEN....tell the office you were just in the hospital Please Follow Up With: Ligia Sawant NP-C When: VIRGEN Proposed Discharge Date: 07/14/17
[2017-07-14 16:11] LABS: Bedside Glucose 235 mg/dL (70-110)
--- NOTE | 2017-07-14 17:35 | NURSING ---
Reviewed and agreed on all charting with Domenic Suggs RN
--- NOTE | 2017-07-15 14:14 | CASEMGMT ---
Vanessa, PCU charge, stated that pt's called in stating that pt's insulin pens is not covered under their insurance. Call to [facility] pharmacy and per Lilly quarles, the novolog 70/30 vials are covered but not the pens. Dr. Schneider changed the order to vials and syringes via the phone at this time. This RN MIGUEL then placed call back to pt's and updated her on the information at this time, voices understanding. Jonh COHEN CM
--- NOTE | 2017-07-16 15:46 | CASEMGMT ---
RN MIGUEL DISCHARGE F/U PHONE CALL LACE: 14 STRATA: 4 CALL DATE: 07/16/17 DISCHARGE DATE: 07/14/17 TIME OF CALL: [id number] DURATION: 4 MINUTES ADM DX: ACUTE PANCREATITIS, NSTEMI PT STATES NO CONCERNS SINCE HE HAS BEEN HOME. PT STATES HE HAS BEEN DOING 'GOOD.' PT STATES NO QUESTIONS REGARDING D/C INSTRUCTIONS OR MEDICATIONS AT THIS TIME. PT STATES THAT HE HAS BEEN TAKING HIS INSULIN INSTRUCTED. PT STATES THAT HE HAD NO CONCERNS WITH HIS VISIT AND THAT HIS 'NURSES WERE GREAT.' PT STATES NO SUGGESTIONS FOR [facility] AT THIS TIME. PT STATES NO FURTHER QUESTIONS/CONCERNS AT THIS TIME. THIS RN CM OFFERED TO PROVIDED THIS RN CM'S DIRECT PHONE NUMBER AND PT ASKS FOR HIS TO TAKE THE NUMBER DOWN AT THIS TIME. TO PHONE AND NUMBER GIVEN AND ALSO VERIFIES THAT PT HAS BEEN TAKING HIS INSULIN INSTRUCTED. SSTATEN VICKI RIVERA
== END 2017-07-14 17:20 | disposition home or self-care (01) | DRG 439 ==
LOC: ED 08:45 → PCU 15:08
PROVIDERS: Emergency Medicine; Admitting Provider Internal Medicine; Emergency Provider Emergency Medicine; Family Provider Student in an Organized Health Care Education/Training Program; PCP Student in an Organized Health Care Education/Training Program; Visit Provider Internal Medicine
DX: K85.90 Acute pancreatitis without necrosis or infection, unspecified (principal); I24.8 Other forms of acute ischemic heart disease; R07.89 Other chest pain; E78.1 Pure hyperglyceridemia; I10 Essential (primary) hypertension; I25.10 Atherosclerotic heart disease of native coronary artery without angina pectoris; K21.9 Gastro-esophageal reflux disease without esophagitis; E11.65 Type 2 diabetes mellitus with hyperglycemia; E78.2 Mixed hyperlipidemia; J44.9 Chronic obstructive pulmonary disease, unspecified; Z95.1 Presence of aortocoronary bypass graft; Z91.14 Patient's other noncompliance with medication regimen; Z79.899 Other long term (current) drug therapy; Z79.82 Long term (current) use of aspirin; Z91.19 Patient's noncompliance with other medical treatment and regimen; F17.210 Nicotine dependence, cigarettes, uncomplicated; F41.9 Anxiety disorder, unspecified; K75.81 Nonalcoholic steatohepatitis (NASH)
CPT/HCPCS: 36415; 71045; 71275; 74177; 80048; 80053; 80061; 80076; 82962; 83036; 83690; 83735; 84478; 84484; 85025; 85027; 85379; 85610; 93005; 93306; 94640; 97802; 99285; 99406; J7030; Q9957; Q9967; A4216; C8929; J2405

== ENCOUNTER 2018-06-11 05:29 | Inpatient (IN) | payer OTHER, SELFPAY ==
[2018-06-11] VITALS (20 sets, daily range): BP systolic 123–144; BP diastolic 68–83; PULSE 66–95; RESP 14–20; TEMP 36.5–37.1; O2SAT 95–99; BMI 27.8; BMI 28.4
--- NOTE | 2018-06-11 05:39 | EKG12_ITS ---
Test Reason : CP Blood Pressure : / mmHG Vent. Rate : 086 BPM Atrial Rate : 086 BPM P-R Int : 126 ms QRS Dur : 084 ms QT Int : 348 ms P-R-T Axes : 052 034 075 degrees QTc Int : 416 ms Normal sinus rhythm Normal ECG Confirmed by JULIO CÉSAR BEDOYA MD ([id number]), editor sound JENNIFER COMBS ([id number]) on 06/15/2018 9:14:24 AM Referred By: KAVIN Confirmed By:JULIO CÉSAR BEDOYA MD
--- NOTE | 2018-06-11 05:39 | RAD_ITS ---
STUDY: X-RAY CHEST REASON FOR EXAM: Male, 58 years old. Chest pain TECHNIQUE: Single frontal view of the chest. COMPARISON: July 10, 2017. FINDINGS: Surgical clips right neck. Again noted increased markings at the lung bases more so on the left. No significant change from prior study. No new focal pulmonary opacity. Chronic lung changes. No pneumothorax. No pleural effusion. Normal size heart. Status post median sternotomy. Aortic calcifications. EKG leads artifacts. There are diffuse degenerative changes of the visualized thoracic spine. There is degenerative osteoarthritis of the bilateral shoulders. There is no demonstrated abnormality of the visualized soft tissue structures of the upper abdomen. RAD/Chest 1 View (Portable) IMPRESSION: Again noted increased lung markings within the lung bases. This appears relatively similar to prior study and may represent atelectasis/scarring. A superimposed infectious process cannot be totally excluded. Electronically Signed: Dexter Araya, at 6:23 EST Tel , Service support ,
[2018-06-11] MEDS: Aspirin 81 MG TAB.CHEW 324 MG PO (05:47)
[2018-06-11 05:56] LABS: Absolute Lymphocyte Count 2.05 X10^3/ul (0.83-4.51); Absolute Neutrophil Count 3.7 X10^3/uL (2.0-7.7); Basophil# 0.01 X10^3/uL; Basophil% 0.2 % (0-1); Eosinophil# 0.25 X10^3/uL; Eosinophils% 3.9 % (0-5); Hematocrit 44.9 % (40-54); Hemoglobin 15.4 g/dl (13.0-16.5); Lymphocyte # 2.05 X10^3/ul (4.0); Lymphocyte % 31.6 % (19-41); Mean Corp Hgb Conc 34.3 g/gl (32-36); Mean Corpuscular Hgb 32.1 pg (27.0-32.0); Mean Corpuscular Volume 93.5 fL (80-94); Monocyte# 0.49 X10^3/uL; Monocyte% 7.6 % (0-10); Neutrophil # 3.67 X10^3/uL (2.7-7.7); Neutrophil % 56.5 % (47-70); Platelet Count 270 K/mm3 (150-450); RBC Distribution Width CV 12.2 % (11.6-14.6); White Blood Count 6.5 K/mm3 (4.4-11.0)
[2018-06-11 06:00] LABS: POSITIVE COUNT NO; POSITIVE DIFFERENTIAL NO; POSITIVE MORPHOLOGY NO
[2018-06-11 06:34] LABS: Anion Gap 8 (5-15); BUN 12 mg/dL (7-18); BUN/Creat Ratio 11.1 RATIO (10-20); Calcium,Total 8.3 mg/dL (8.5-10.1); Chloride 104 mmol/L (98-107); Creatinine, Serum 1.08 mg/dL (0.70-1.30); EST Glomerular Filtration Rate 75 mL/min (>60); Est Glom Filt Rate - Afr Amer 90 mL/min (>60); Estimated Creatinine Clearance 79.41 ml/min; Glucose 344 mg/dL (74-106); Potassium 4.1 mmol/L (3.5-5.1); Sodium Level 136 mmol/L (136-145)
--- NOTE | 2018-06-11 06:36 | ED.RN ---
DR VALE NOTIFIED OF TROPONIN RESULTS
--- NOTE | 2018-06-11 07:02 | ED.DCSUM_ITS ---
- ER Visit Summary Date of Service: 06/11/18 Chief Complaint: Chest pain History of Present Illness: The patient is a 58 M with chest pain. He has a history of coronary disease and had a coronary bypass in 2006. He also has a history of diabetes, hypertension, and hyperlipidemia. He is a smoker. He had chest pain that started less than an hour prior to arrival. It felt like someone was standing on the middle of his chest. It did not radiate. It was 8 out of 10. He had aspirin and nitro and his symptoms improved. His pain is currently 2 out of 10. His symptoms were associated with sweating and lightheadedness. Physical Examination: Afebrile and vital signs unremarkable. Alert and oriented. No acute distress. Skin normal in color without pallor or diaphoresis. Heart regular rate and rhythm. Lungs clear. Abdomen soft and nontender. Extremities nontender with no edema. Test Results: EKG showed sinus rhythm at a rate of 86. No sign of acute ischemia or infarction pattern. CBC normal. Glucose 344. Troponin 0 0.837. Chest x-ray showed chronic changes, atelectasis versus scarring at the bases is suspected. Emergency Department Course and Treatment: Patient was treated with aspirin. He had minimal pain and did not receive nitro in the ED. He was placed on a monitor. EKG as above. Labs were ordered and showed an elevated glucose and troponin. On reevaluation, patient is not having any pain or new symptoms. I spoke with Dr. Quinn. Patient received Brilinta 180 mg. He will evaluate the patient. No further orders at this time. Will contact the hospitalist for further care and admission. Treatment Plan: As above Disposition: Admission Impression: 1. NSTEMI 2. Hyperglycemia This note was generated with [employer] software. It may contain incorrect words, spelling, and punctuation that were not noted in review of the chart prior to signing ED Disposition - Plan for ED Patient: Referrals: Darrius Penny DO [Primary Care Provider] -
--- NOTE | 2018-06-11 07:05 | PCM.HP.STD ---
Problem List (1) High cholesterol Status: Chronic Comment: On statin. Reports he is now taking fairly consistently. Enc to continue to do so. Also on fenofibrate. (2) Hypertension Status: Chronic Qualifiers: Hypertension type: essential hypertension Qualified Code(s): I10 - Essential (primary) hypertension (3) Diabetes Status: Chronic Qualifiers: Diabetes mellitus type: type 2 Diabetes mellitus termination clerk insulin use: with termination clerk use Diabetes mellitus complication status: with unspecified complications Qualified Code(s): E11.8 - Type 2 diabetes mellitus with unspecified complications; Z79.4 - retirement (current) use of insulin Comment: type 2 Dx : 2012 Last exacerbation : DKA : never Hypoglycemic episode : never ER visit : never (4) Asthma Status: Chronic Qualifiers: Asthma severity: mild Asthma persistence: intermittent Asthma complication type: uncomplicated Qualified Code(s): J45.20 - Mild intermittent asthma, uncomplicated (5) HLD (hyperlipidemia) Status: Chronic Qualifiers: Hyperlipidemia type: unspecified Qualified Code(s): E78.5 - Hyperlipidemia, unspecified (6) Smoker Status: Chronic Comment: Enc to work on smoking cessation. Discussed various ways to stop. not easy but he can do it. Discussed need to keep trying (7) CAD (coronary artery disease) Status: Chronic Qualifiers: Coronary Disease-Associated Artery/Lesion type: unga artery [place] vs. transplanted heart: unga heart Comment: s/p CABG X4 2006 History of Present Illness Date of Admission: 06/11/18 Chief Complaint: Chest pain - 1 day The patient is a 58 year old M with past medical history of CAD status post CABG 12 years ago in [facility], hypertension, type II DM, on insulin, chronic smoker who comes in with complaints of chest pain that started early this morning. Patient was at work and was helping to move some items onto a skid when he started having sudden onset of substernal sharp squeezing chest pain that did not radiate to any part of his body nor was it associated with diaphoresis or dizziness. He took a tablet of nitroglycerin which seemed to help the pain. By the time he presented to the emergency department, his pain was 2 out of 10. Vitals in the ED show temperature of 98.0F, heart rate 92, blood pressure 132/83, respiratory rate was 16, SPO2 is 95% on room air. His admitting blood work was unremarkable except for elevated glucose of 344, troponin was 0.837. His admitting EKG shows normal sinus rhythm, no acute ST-T changes. Past Medical History Past Medical History (Chronic Problems): Chronic Problems (Last Reviewed 01/05/18 @ 16:07 by Letty Matthews) GERD (gastroesophageal reflux disease) (Chronic) Pancreatitis (Chronic) High triglycerides (Chronic) High cholesterol (Chronic) On statin. Reports he is now taking fairly consistently. Enc to continue to do so. Also on fenofibrate. Hypertension (Chronic) Heart disease (Chronic) Emphysema lung (Chronic) Diabetes (Chronic) type 2 Dx : 2012 Last exacerbation : DKA : never Hypoglycemic episode : never ER visit : never Asthma (Chronic) Arthritis (Chronic) HLD (hyperlipidemia) (Chronic) Hypertriglyceridemia (Chronic) Type 2 diabetes mellitus with hyperglycemia (Chronic) Patient is doing very well at this point. He is taking insulin and is tolerating BG 120-140 range without complaint. Enc to let me know if he needs assist with cost. He is buying [employer] 70/30 HTN (hypertension) (Chronic) Controlled. BP 118/75 Smoker (Chronic) Enc to work on smoking cessation. Discussed various ways to stop. not easy but he can do it. Discussed need to keep trying CAD (coronary artery disease) (Chronic) s/p CABG X4 2007 Non compliance w medication regimen (Chronic) Fatty liver (Chronic) GERD (gastroesophageal reflux disease) (Chronic) Medical History: Medical History (Last Reviewed 01/05/18 @ 16:07 by Letty Matthews) GERD (gastroesophageal reflux disease) (Chronic) K21.9 Pancreatitis (Chronic) K85.90 High triglycerides (Chronic) E78.1 High cholesterol (Chronic) E78.00 On statin. Reports he is now taking fairly consistently. Enc to continue to do so. Also on fenofibrate. Hypertension (Chronic) I10 Heart disease (Chronic) I51.9 Emphysema lung (Chronic) J43.9 Diabetes (Chronic) E11.9 type 2 Dx : 2012 Last exacerbation : DKA : never Hypoglycemic episode : never ER visit : never Asthma (Chronic) J45.909 Arthritis (Chronic) M19.90 Allergies amoxicillin Allergy (Verified 06/11/18 05:37) Angioedema lindane Allergy (Verified 06/11/18 05:37) Rash Home Medications: Ambulatory Orders Medication Instructions Recorded Aspirin [Aspirin, Baby] 81 mg PO DAILY@0800 04/08/17 Losartan Potassium 100 mg PO DAILY #30 tab 07/14/17 Omeprazole [Prilosec] 20 mg PO BID #60 cap 07/14/17 Simvastatin 40 mg PO DAILY #30 tab 07/14/17 buspirone 5 mg tablet 5 mg PO TID #90 tab 07/29/17 pen needle, diabetic 30 gauge x 1 ea MISCELLANEOUS BID #60 07/29/1708/19 dis.needle insulin aspar prot-insulin aspart See Rx Instructions SC BID ml 08/06/17 100 unit/mL (70-30) subcutaneous pen insulin human U-100 NPH-regulr See Rx Instructions SC BID #20 ml 08/06/17 70-30 mix 100 unit/mL subcutaneous susp insulin syringe U-100 with needle See Dose Instructions .ROUTE 08/06/17 0.5 mL 31 gauge x 08/19 .MEDSUPPLY #60 ea albuterol sulfate HFA 90 2 puff INHALATION Q4H PRN #8 g 08/19/17 mcg/actuation aerosol inhaler insulin NPH-regular 70-30 U-100 See Rx Instructions SC BID #15 ml 01/05/18 insulin 100 unit/mL subcutaneous pen pen needle, diabetic 32 gauge x See Dose Instructions .ROUTE 01/05/1808/19 .MEDSUPPLY #100 ea fenofibrate micronized 134 mg 134 mg PO DAILY #30 cap 05/07/18 capsule Surgical History: Surgical History (Last Reviewed 01/05/18 @ 16:07 by Letty Matthews) History of open heart surgery Z98.890 01/10 Surgical History: coronary bypass surgery, - Psychiatric History: No pertinent psych hx Smoking Status: Current every day smoker Tobacco Use: Cigarettes Alcohol: None Drugs: None - *Family History Maternal Family History: Family History (Last Reviewed 01/05/18 @ 16:07 by Letty Matthews) Father Asthma Alcoholism Arthritis Heart disease Hypertension High cholesterol CVA (cerebral vascular accident) Grandfather Myocardial infarction History Items: No pertinent history Paternal Family History: Family History (Last Reviewed 01/05/18 @ 16:07 by Letty Matthews) Father Asthma Alcoholism Arthritis Heart disease Hypertension High cholesterol CVA (cerebral vascular accident) Grandfather Myocardial infarction History Items: Asthma, Cancer, Heart Disease, Hypertension, Stroke Review of Systems Constitutional: Denies: Anorexia, Chills, Fever, Malaise, Weakness, Weight Change Eyes: Denies: Blurred vision, Conjunctivae Inflammation, Pain, Redness, Vision Change HEENT: Denies: Difficulty Hearing, Difficulty Swallowing, Head Aches, Hearing Changes, Nasal bleeding, Sinus Congestion, Sinus Drainage Cardiovascular: Reports: Chest Pain. Denies: Claudication, Chest Pressure, Chest Tightness, Light Headedness, Orthopnea, Palpitations, Paroxysmal Noc. Dyspnea, Syncope Respiratory: Denies: Cough, Hemoptysis, Shortness of breath at rest, Shortness of breath upon exertion, Sputum production Gastrointestinal: Denies: Abdominal Pain, Diarrhea, Nausea, Vomiting Genitourinary: Denies: Dysuria, Frequency, Incontinence, Nocturia Musculoskeletal: Denies: Joint Pain, Joint stiffness, Joint swelling, Joint Tenderness Skin: Denies: Rash, Wounds Neurological: Denies: Difficulty swallowing, Focal weakness, Numbness, Tingling Psychiatric: Denies: Anxiety, Depression, Homicidal Ideations, Suicidal Ideations Hematologic/ Lymphatic: Denies: Easy Bruising, Easy Bleeding VTE Information - Inpt Only VTE Present on Admission: No VTE Pharm Prophylaxis ordered?: Yes - Physical Exam General: Alert, Oriented x3, Cooperative, No apparent distress HEENT: Atraumatic, PERRLA, EOMI, Normocephalic Oral: Moist Mucosa Neck: Supple Lungs: Clear to auscultation, Normal air movement Cardiovascular: Regular rate, Regular Rhythm, Normal S1, Normal S2, No murmurs Abdomen: Bowel Sounds Present, Soft, Non Tender, Non-Distended, No Hepato-splenomegaly Extremities: No edema Skin: No rashes Musculoskeletal: No Tenderness to Palpation of Joints or Extremities Lymphatic: No Cervical, Supraclavicular, or Inguinal Adenopathy Neurological: Cranial nerves II-XII grossly intact, Neuro grossly intact Psych/Mental Status: Normal Affect, Appropriate Vital Signs Temp Pulse Resp BP Pulse Ox 98.0 F 80 16 144/78 H 96 06/11/18 05:30 06/11/18 06:34 06/11/18 06:34 06/11/18 06:34 06/11/18 06:34 Oxygen Flow Rate (L/min) 2 Oxygen Delivery Method Nasal Cannula Weight: 90.718 kg Body Mass Index (BMI) 27.8 Finger Stick Blood Glucose 316 Laboratory Tests Past 24 Hrs 06/11/18 06/11/18 05:42 05:42 WBC 6.5 RBC 4.80 Hgb 15.4 Hct 44.9 MCV 93.5 MCH 32.1 H MCHC 34.3 RDW 12.2 RDW Differential 41.0 Plt Count 270 MPV 10.0 Immature Gran % (Auto) 0.200 Neut % (Auto) 56.5 Lymph % (Auto) 31.6 [place] % (Auto) 7.6 Eos % (Auto) 3.9 Baso % (Auto) 0.2 Absolute Neuts (auto) 3.7 Absolute Lymphs (auto) 2.05 Total Counted Not Reportable Sodium 136 Potassium 4.1 Chloride 104 Carbon Dioxide 24.0 Anion Gap 8 BUN 12 Creatinine 1.08 Estim Creat Clear Calc 79.41 Est GFR (MDRD) Af Amer 90 Est GFR (MDRD) Non-Af 75 BUN/Creatinine Ratio 11.1 Glucose 344 H Calcium 8.3 L Troponin I 0.837 H* Assessment/Plan All Active Problems (Last Reviewed 01/05/18 @ 16:07 by Letty Matthews) Acute pancreatitis (Acute) Chest pain (Acute) Elevated troponin I level (Acute) 58 year old M with past medical history of CAD status post CABG 12 years ago in [facility], Hypertension, Type II DM, on insulin, chronic smoker who comes in with complaints of chest pain that started early this morning. 1. Chest pain likely secondary to NSTEMI, history of CAD status post CABG, chronic smoker, elevated troponin to 0.837, no acute ST-T changes Discussed with cardiology, patient will be kept n.p.o. for cardiac cath this afternoon Plan: Admit to PCU, trend troponins, monitor on telemetry, received aspirin and Brilinta, will continue with nitro as needed, further recommendations per cardiology 2. Hypertension, controlled, hold losartan in light of upcoming cardiac cath, will put on hydralazine as needed 3. Type II DM, uncontrolled, blood sugars are elevated, patient is on insulin, continue home regimen, Accu-Cheks and insulin sliding scale, Last HbA1c was 13.1 in July 2017, check HbA1c. 4. Hyperlipidemia/hypertriglyceridemia, patient is on fenofibrate, simvastatin 5. Nicotine dependence, advised to quit, will put on nicotine patch 6. Anxiety disorder, on buspirone 7. Asthma, no signs of acute exacerbation, will put on as needed breathing treatments 8. DVT PPx- Heparin SC -will need to have that timed to when patient gets anticoagulant load for cardiac cath so patient does not get overdose. Code Visit Inpatient E&M: 15499 Init Hosp L3
[2018-06-11] MEDS: TICAGRELOR 90 MG TABLET 180 MG PO (07:13)
--- NOTE | 2018-06-11 08:13 | EKG12_ITS ---
Test Reason : CP ADMT Blood Pressure : / mmHG Vent. Rate : 070 BPM Atrial Rate : 070 BPM P-R Int : 132 ms QRS Dur : 086 ms QT Int : 386 ms P-R-T Axes : 066 037 076 degrees QTc Int : 416 ms Normal sinus rhythm Normal ECG When compared with ECG of 11-JUN-2018 05:33, MANUAL COMPARISON REQUIRED, DATA IS UNCONFIRMED Confirmed by AURELIANO WESTBROOK, JULIO CÉSAR ([id number]), electronic news gathering editor JENNIFER COMBS ([id number]) on 06/18/2018 8:57:03 AM Referred By: FELICE Confirmed By:JULIO CÉSAR BEDOYA MD
[2018-06-11 08:36] LABS: Hemoglobin A1c 11.2 % (4.2-6.3)
[2018-06-11 08:52] LABS: BNP,B-Type NATRIURETIC PEPTIDE 58.6 pg/mL (0-100)
--- NOTE | 2018-06-11 09:05 | PCM.CONS.C ---
Reason for Consult Date of Consultation: 06/11/18 Reason for Consultation: Chest pain History of Present Illness: The patient is a 58 year old M with a history of coronary artery disease status post carotid bypass surgery ?4 approximately 11 years ago history of hypertension, hyperlipidemia who was previously been followed up by a drum barker operator in the [place] area. Dr. Herrera Espinosa. He presented here today because he started experiencing chest discomfort which he says was similar to his previous presentation. He had been last seen here approximately a year ago with chest discomfort and had an abnormal cardiac troponin enzyme. At that time he was diagnosed with pancreatitis. He was asked to follow-up with his primary care drum barker operator. This time he presented with similar discomfort was seen in the emergency room his EKG was unremarkable but his troponins were elevated. He described it as a tightness across his chest. There was no nausea with mild diaphoresis. I was called to see him in the emergency room. He is currently pain-free. Past Medical History Allergies/Adverse Reactions: Allergies amoxicillin Allergy (Verified 06/11/18 05:37) Angioedema lindane Allergy (Verified 06/11/18 05:37) Rash Home Medications: Ambulatory Orders Medication Instructions Recorded Aspirin [Aspirin, Baby] 81 mg PO DAILY@0800 04/08/17 Losartan Potassium 100 mg PO DAILY #30 tab 07/14/17 Omeprazole [Prilosec] 20 mg PO BID #60 cap 07/14/17 Simvastatin 40 mg PO DAILY #30 tab 07/14/17 buspirone 5 mg tablet 5 mg PO TID #90 tab 07/29/17 pen needle, diabetic 30 gauge x 1 ea MISCELLANEOUS BID #60 07/29/1708/19 dis.needle insulin aspar prot-insulin aspart See Rx Instructions SC BID ml 08/06/17 100 unit/mL (70-30) subcutaneous pen insulin human U-100 NPH-regulr See Rx Instructions SC BID #20 ml 08/06/17 70-30 mix 100 unit/mL subcutaneous susp insulin syringe U-100 with needle See Dose Instructions .ROUTE 08/06/17 0.5 mL 31 gauge x 08/19 .MEDSUPPLY #60 ea albuterol sulfate HFA 90 2 puff INHALATION Q4H PRN #8 g 08/19/17 mcg/actuation aerosol inhaler insulin NPH-regular 70-30 U-100 See Rx Instructions SC BID #15 ml 01/05/18 insulin 100 unit/mL subcutaneous pen pen needle, diabetic 32 gauge x See Dose Instructions .ROUTE 01/05/1808/19 .MEDSUPPLY #100 ea fenofibrate micronized 134 mg 134 mg PO DAILY #30 cap 05/07/18 capsule Past Medical History (Chronic Problems): Chronic Problems (Last Reviewed 01/05/18 @ 16:07 by Letty Matthews) GERD (gastroesophageal reflux disease) (Chronic) Pancreatitis (Chronic) High triglycerides (Chronic) High cholesterol (Chronic) On statin. Reports he is now taking fairly consistently. Enc to continue to do so. Also on fenofibrate. Hypertension (Chronic) Heart disease (Chronic) Emphysema lung (Chronic) Diabetes (Chronic) type 2 Dx : 2012 Last exacerbation : DKA : never Hypoglycemic episode : never ER visit : never Asthma (Chronic) Arthritis (Chronic) HLD (hyperlipidemia) (Chronic) Hypertriglyceridemia (Chronic) Type 2 diabetes mellitus with hyperglycemia (Chronic) Patient is doing very well at this point. He is taking insulin and is tolerating BG 120-140 range without complaint. Enc to let me know if he needs assist with cost. He is buying [employer] 70/30 HTN (hypertension) (Chronic) Controlled. BP 118/75 Smoker (Chronic) Enc to work on smoking cessation. Discussed various ways to stop. not easy but he can do it. Discussed need to keep trying CAD (coronary artery disease) (Chronic) s/p CABG X4 2007 Non compliance w medication regimen (Chronic) Fatty liver (Chronic) GERD (gastroesophageal reflux disease) (Chronic) Surgical History: coronary bypass surgery, - Psychiatric History: No pertinent psych hx - *Family History Maternal Family History: Family History (Last Reviewed 01/05/18 @ 16:07 by Letty Matthews) Father Asthma Alcoholism Arthritis Heart disease Hypertension High cholesterol CVA (cerebral vascular accident) Grandfather Myocardial infarction History Items: No pertinent history Paternal Family History: Family History (Last Reviewed 01/05/18 @ 16:07 by Letty Matthews) Father Asthma Alcoholism Arthritis Heart disease Hypertension High cholesterol CVA (cerebral vascular accident) Grandfather Myocardial infarction History Items: Asthma, Cancer, Heart Disease, Hypertension, Stroke Smoking Status: Current every day smoker Tobacco Use: Cigarettes Alcohol: None Drugs: None Review of Systems - Review of Systems General: Denies: Fever, Night Sweats, Fatigue HEENT: Denies: Vision Change Cardiovascular: Reports: Chest Discomfort, Chest Discomfort at Rest. Denies: Shortness of Breath, Orthopnea, PND, Peripheral Edema, Palpitations, Lightheadedness, Dizziness, Near Syncope, Syncope Respiratory: Denies: Cough, Sputum Production, Hemoptysis Gastrointestinal: Denies: Hematemesis, Hematochezia, Melena Genitourinary: Denies: Dysuria, Hematuria Skin: Denies: Rash Neurological: Denies: Dizziness Psychiatric: Denies: Anxiety Endocrine: Denies: Unexplained Weight Loss Hematologic/ Lymphatic: Denies: Anemia Subjectve: Pleasant gentleman in no distress at this time. Objective: Vital Signs Temp Pulse Resp BP Pulse Ox 97.9 F 75 16 123/70 H 97 06/11/18 08:11 06/11/18 08:18 06/11/18 08:11 06/11/18 08:11 06/11/18 08:11 Oxygen Flow Rate (L/min) 2 Oxygen Delivery Method Room Air Weight: 203 lb 11.314 oz Body Mass Index (BMI) 28.4 Finger Stick Blood Glucose 316 General: Awake, Alert, Oriented x 3 HEENT: PERRL, EOMI, Sclera Non Icteric Neck: Supple, Good ROM, No Lymph Node Enlargement Lungs: Clear to auscultation Cardiovascular: Regular Rhythm, Normal S1, Normal S2, No Murmurs, No Rubs, No Gallops Vascular: No Carotid Bruits, Normal Femoral Pulses, Normal Radial Pulses, Normal Dorsalis Pedal Pulse, Normal Posterior Tibial Pulses Abdomen: Bowel Sounds Present, Soft, Non Tender, No HSM, No Organomegaly Extremities: No Cyanosis, No Clubbing, No edema Musculoskeletal: No Erythema Skin: No Rashes Lymphatic: No Lymph Node Enlargement Neurological: No Focal Motor or Sensory Deficit Psych/Mental Status: Appropriate 06/11/18 05:42: WBC 6.5, RBC 4.80, Hgb 15.4, Hct 44.9, MCV 93.5, MCH 32.1 H, MCHC 34.3, RDW 12.2, RDW Differential 41.0, Plt Count 270, MPV 10.0, Immature Gran % (Auto) 0.200, Neut % (Auto) 56.5, Lymph % (Auto) 31.6, [place] % (Auto) 7.6, Eos % (Auto) 3.9, Baso % (Auto) 0.2, Absolute Neuts (auto) 3.7, Total Counted Not Reportable 06/11/18 05:42: Sodium 136, Potassium 4.1, Chloride 104, Carbon Dioxide 24.0, Anion Gap 8, BUN 12, Creatinine 1.08, Est GFR (MDRD) Af Amer 90, Est GFR (MDRD) Non-Af 75, BUN/Creatinine Ratio 11.1, Glucose 344 H, Calcium 8.3 L, Troponin I 0.837 H* 06/11/18 05:42: B-Natriuretic Peptide 58.6 06/11/18 05:42: Hemoglobin A1c 11.2 H Rhythm: EKG: Normal sinus rhythm with no acute changes Assessment/Plan 1. Non-ST elevation myocardial infarction Patient has a history of known coronary artery disease. He presents with chest discomfort with no EKG changes but a non-ST elevation myocardial infarction. He has had bypass surgery remotely. Based on the above I would expect him to have underlying coronary artery disease. My recommendation would be to treat him with aspirin Brilinta loading Consider cardiac catheterization today. The risk benefits and alternatives have been explained to him he understands and agrees to proceed Have urged him to be more diligent with his follow-up. 2. Hypertension Blood pressure appears to be under fair control at this time. Continue current aggressive medical therapy. 3. Lipidemia Does have a history of hyperlipidemia and has been on statin therapy. My recommendation would be for him to be more aggressively treated on the statin. Thank you for allowing me to participate in the care of your patient. Please don't hesitate to call if any issues arise
--- NOTE | 2018-06-11 09:09 | CON.PCM_ITS ---
Reason for Consult Date of Consultation: 06/11/18 Reason for Consultation: Chest pain History of Present Illness: The patient is a 58 year old M with a history of coronary artery disease status post carotid bypass surgery ?4 approximately 11 years ago history of hypertension, hyperlipidemia who was previously been followed up by a assistant professor of education in the [place] area. Dr. Herrera Espinosa. He presented here today because he started experiencing chest discomfort which he says was similar to his previous presentation. He had been last seen here approximately a year ago with chest discomfort and had an abnormal cardiac troponin enzyme. At that time he was diagnosed with pancreatitis. He was asked to follow-up with his primary care assistant professor of education. This time he presented with similar discomfort was seen in the emergency room his EKG was unremarkable but his troponins were elevated. He described it as a tightness across his chest. There was no nausea with mild diaphoresis. I was called to see him in the emergency room. He is currently pain-free. Past Medical History Allergies/Adverse Reactions: Allergies amoxicillin Allergy (Verified 06/11/18 05:37) Angioedema lindane Allergy (Verified 06/11/18 05:37) Rash Home Medications: Ambulatory Orders Medication Instructions Recorded Aspirin [Aspirin, Baby] 81 mg PO DAILY@0800 04/08/17 Losartan Potassium 100 mg PO DAILY #30 tab 07/14/17 Omeprazole [Prilosec] 20 mg PO BID #60 cap 07/14/17 Simvastatin 40 mg PO DAILY #30 tab 07/14/17 buspirone 5 mg tablet 5 mg PO TID #90 tab 07/29/17 pen needle, diabetic 30 gauge x 1 ea MISCELLANEOUS BID #60 07/29/1708/19 dis.needle insulin aspar prot-insulin aspart See Rx Instructions SC BID ml 08/06/17 100 unit/mL (70-30) subcutaneous pen insulin human U-100 NPH-regulr See Rx Instructions SC BID #20 ml 08/06/17 70-30 mix 100 unit/mL subcutaneous susp insulin syringe U-100 with needle See Dose Instructions .ROUTE 08/06/17 0.5 mL 31 gauge x 08/19 .MEDSUPPLY #60 ea albuterol sulfate HFA 90 2 puff INHALATION Q4H PRN #8 g 08/19/17 mcg/actuation aerosol inhaler insulin NPH-regular 70-30 U-100 See Rx Instructions SC BID #15 ml 01/05/18 insulin 100 unit/mL subcutaneous pen pen needle, diabetic 32 gauge x See Dose Instructions .ROUTE 01/05/1808/19 .MEDSUPPLY #100 ea fenofibrate micronized 134 mg 134 mg PO DAILY #30 cap 05/07/18 capsule Past Medical History (Chronic Problems): Chronic Problems (Last Reviewed 01/05/18 @ 16:07 by Letty Matthews) GERD (gastroesophageal reflux disease) (Chronic) Pancreatitis (Chronic) High triglycerides (Chronic) High cholesterol (Chronic) On statin. Reports he is now taking fairly consistently. Enc to continue to do so. Also on fenofibrate. Hypertension (Chronic) Heart disease (Chronic) Emphysema lung (Chronic) Diabetes (Chronic) type 2 Dx : 2012 Last exacerbation : DKA : never Hypoglycemic episode : never ER visit : never Asthma (Chronic) Arthritis (Chronic) HLD (hyperlipidemia) (Chronic) Hypertriglyceridemia (Chronic) Type 2 diabetes mellitus with hyperglycemia (Chronic) Patient is doing very well at this point. He is taking insulin and is tolerating BG 120-140 range without complaint. Enc to let me know if he needs assist with cost. He is buying [employer] 70/30 HTN (hypertension) (Chronic) Controlled. BP 118/75 Smoker (Chronic) Enc to work on smoking cessation. Discussed various ways to stop. not easy but he can do it. Discussed need to keep trying CAD (coronary artery disease) (Chronic) s/p CABG X4 2007 Non compliance w medication regimen (Chronic) Fatty liver (Chronic) GERD (gastroesophageal reflux disease) (Chronic) Surgical History: coronary bypass surgery, - Psychiatric History: No pertinent psych hx - *Family History Maternal Family History: Family History (Last Reviewed 01/05/18 @ 16:07 by Letty Matthews) Father Asthma Alcoholism Arthritis Heart disease Hypertension High cholesterol CVA (cerebral vascular accident) Grandfather Myocardial infarction History Items: No pertinent history Paternal Family History: Family History (Last Reviewed 01/05/18 @ 16:07 by Letty Matthews) Father Asthma Alcoholism Arthritis Heart disease Hypertension High cholesterol CVA (cerebral vascular accident) Grandfather Myocardial infarction History Items: Asthma, Cancer, Heart Disease, Hypertension, Stroke Smoking Status: Current every day smoker Tobacco Use: Cigarettes Alcohol: None Drugs: None Review of Systems - Review of Systems General: Denies: Fever, Night Sweats, Fatigue HEENT: Denies: Vision Change Cardiovascular: Reports: Chest Discomfort, Chest Discomfort at Rest. Denies: Shortness of Breath, Orthopnea, PND, Peripheral Edema, Palpitations, Lightheadedness, Dizziness, Near Syncope, Syncope Respiratory: Denies: Cough, Sputum Production, Hemoptysis Gastrointestinal: Denies: Hematemesis, Hematochezia, Melena Genitourinary: Denies: Dysuria, Hematuria Skin: Denies: Rash Neurological: Denies: Dizziness Psychiatric: Denies: Anxiety Endocrine: Denies: Unexplained Weight Loss Hematologic/ Lymphatic: Denies: Anemia Subjectve: Pleasant gentleman in no distress at this time. Objective: Vital Signs Temp Pulse Resp BP Pulse Ox 97.9 F 75 16 123/70 H 97 06/11/18 08:11 06/11/18 08:18 06/11/18 08:11 06/11/18 08:11 06/11/18 08:11 Oxygen Flow Rate (L/min) 2 Oxygen Delivery Method Room Air Weight: 203 lb 11.314 oz Body Mass Index (BMI) 28.4 Finger Stick Blood Glucose 316 General: Awake, Alert, Oriented x 3 HEENT: PERRL, EOMI, Sclera Non Icteric Neck: Supple, Good ROM, No Lymph Node Enlargement Lungs: Clear to auscultation Cardiovascular: Regular Rhythm, Normal S1, Normal S2, No Murmurs, No Rubs, No Gallops Vascular: No Carotid Bruits, Normal Femoral Pulses, Normal Radial Pulses, Normal Dorsalis Pedal Pulse, Normal Posterior Tibial Pulses Abdomen: Bowel Sounds Present, Soft, Non Tender, No HSM, No Organomegaly Extremities: No Cyanosis, No Clubbing, No edema Musculoskeletal: No Erythema Skin: No Rashes Lymphatic: No Lymph Node Enlargement Neurological: No Focal Motor or Sensory Deficit Psych/Mental Status: Appropriate 06/11/18 05:42: WBC 6.5, RBC 4.80, Hgb 15.4, Hct 44.9, MCV 93.5, MCH 32.1 H, MCHC 34.3, RDW 12.2, RDW Differential 41.0, Plt Count 270, MPV 10.0, Immature Gran % (Auto) 0.200, Neut % (Auto) 56.5, Lymph % (Auto) 31.6, Butts % (Auto) 7.6, Eos % (Auto) 3.9, Baso % (Auto) 0.2, Absolute Neuts (auto) 3.7, Total Counted Not Reportable 06/11/18 05:42: Sodium 136, Potassium 4.1, Chloride 104, Carbon Dioxide 24.0, Anion Gap 8, BUN 12, Creatinine 1.08, Est GFR (MDRD) Af Amer 90, Est GFR (MDRD) Non-Af 75, BUN/Creatinine Ratio 11.1, Glucose 344 H, Calcium 8.3 L, Troponin I 0.837 H* 06/11/18 05:42: B-Natriuretic Peptide 58.6 06/11/18 05:42: Hemoglobin A1c 11.2 H Rhythm: EKG: Normal sinus rhythm with no acute changes Assessment/Plan 1. Non-ST elevation myocardial infarction * Patient has a history of known coronary artery disease. He presents with chest discomfort with no EKG changes but a non-ST elevation myocardial infarction. He has had bypass surgery remotely. * Based on the above I would expect him to have underlying coronary artery disease. * My recommendation would be to treat him with aspirin * Brilinta loading * Consider cardiac catheterization today. The risk benefits and alternatives have been explained to him he understands and agrees to proceed * Have urged him to be more diligent with his follow-up. 2. Hypertension * Blood pressure appears to be under fair control at this time. * Continue current aggressive medical therapy. * 3. Lipidemia * Does have a history of hyperlipidemia and has been on statin therapy. My recommendation would be for him to be more aggressively treated on the statin. * Thank you for allowing me to participate in the care of your patient. Please don't hesitate to call if any issues arise
--- NOTE | 2018-06-11 09:15 | CASEMGMT ---
According to [facility] website, the following are in-network tertiary facilities: [facility], [facility], [facility], [facility], [facility], [facility], [facility], [facility], [facility], and . Jonh COHEN CM
--- NOTE | 2018-06-11 10:04 | CASEMGMT ---
This RN CM to room to complete CM assessment and pt is out of the dept at this time. S[place]en RN CM
[2018-06-11 11:05] LABS: Cholesterol 205 mg/dL (200); High Density Lipoprotein 26 mg/dL; Triglycerides 999 mg/dL
[2018-06-11] MEDS: 0.9% Normal Saline 1,000 ML 15 ML IV (11:26)
[2018-06-11] MEDS: 0.9% Normal Saline 1,000 ML 150 ML IV (11:27)
[2018-06-11] MEDS: Insulin Lispro 100 UNIT/ML INSULN.PEN SQ ×3 (11:36→22:34)
--- NOTE | 2018-06-11 12:12 | CL.D_ITS ---
Patient Name: KANA MEJIA Study Date: 06/11/2018 Performing: Obie Zaldivar MD Ht: 71 inches 180 cm : 1960 Wt: 203.1 lbs 92 kg Age: 58 Gender: male BSA: 2.12 PROCEDURE(S) PERFORMED MA50-MHU/COR/LV/CABG DC11-AO ROOT ANGIO WITH HEART CATH CLINICAL PROFILE AND INDICATIONS Patient presents with NSTEMI for urgent cardiac cath Indications: ACS <= 24 hrs, New Onset Angina <= 2 months, Stable Known CAD Heart Failure: None Stress/Imaging Stress/Image Study Performed: No Angina Classification Anginal Classification w/in 2 Weeks: CCS II CAD Presentations: Unstable angina. Non-STEMI. Symptom onset Date/Time: 06/10/2018 Time Not Availa ble Comorbidities/Risk Factors: Current/Recent Smoker (< 1year) Hypertension Dyslipidemia Prior CABG CONCLUSIONS Triple vessel CAD of the RCA, LAD, LCX and OMs Segmented LV systolic dysfunction- Mild LVEF: by LV gram 55 % Elevated Left Ventricular End Diastolic Pressure Patent ALMANZAR to OMs Patent LOGAN to PDA. Occluded SVG and radial grafts to left system; no CABG report available to identify graft destination s. Severe calcified LM and proximal LCX, making PCI of LCX high risk. Would recommend medical managemen t going forward. RECOMMENDATIONS Risk factor modification ASA Indefinitely Management as per referring Network Internship Would not recommend PCI of LCX given calcification and tortuosity. Injection of RFA area appears to show dye in subcutaneous space; needle appears to fall out of artery prior to injection. Pt had excellent RFA pulses, no hematoma, and excellent 2+ distal pulses at rig ht DP and PT locations. D/w Dr Veliz. F/u with either Dr Zaldivar or Dr Quinn. DESCRIPTION OF PROCEDURE The patient arrived to the procedure lab. The risks and benefits of the procedure as well as a full d escription of our services here and current unavailability of surgical backup were fully explained to the patient and/or their significant other prior to the catheterization. The Timeout was completed, verifying the correct patient and procedure. The patient's procedural site was prepped and draped in the usual fashion. Local anesthetic was given subcutaneously to right groin region with Lidocaine 2%. Local anesthetic was given subcutaneously to left groin region with Lidocaine 2%. Using a modified S eldinger technique, arterial access was obtained via the left femoral artery, a 4Fr 45cm sheath was i nserted Left Coronary Artery selective angiography was performed in multiple views using a 4 Fr. JL5 catheter. Right Coronary Artery selective angiography was then performed in single view using a 4 Fr . 3DRC catheter: Total occlusion. Left internal mammary artery graft to the LAD selective angiography was performed in multiple views using a 4 Fr. 3DRC catheter. Left Ventriculography was pe rformed in DON projection using a 4 Fr. Pigtail catheter. LV to AO pullback pressures were then recor ded. Ascending (root) aorta selective angiography was then performed in single view. Ascending (root) aorta selective angiography was then performed in single view. Right internal mammary artery graft t o the RCA selective angiography was performed in multiple views using a 4 Fr. 3DRC catheter. Radial g raft to the unknown artery (occluded graft) selective angiography was performed in single view using a 4 Fr. AR MOD 2 catheter. Saphenous Vein graft to the unknown artery (occluded graft) selective keila ography was performed in single view using a 4 Fr. AR MOD 2 catheter.The arterial sheath was pulled a nd manual compression applied until hemostasis is achieved. CORONARY ANGIOGRAPHY DOMINANCE: Co- Dominant LEFT HEART ASSESSMENT Left Ventricular Ejection Fraction: by LV Gram 55 % Anterior Hypokinesis - Mild LVEDP: 14 mmHg Depressed Left Ventricular systolic function LEFT MAIN: Severe calcification, 75 % Stenosis LEFT ANTERIOR DECENDING ARTERY: PROX LAD: is occluded CIRCUMFLEX ARTERY: Moderate calcification PROX CIRC: 65 % Stenosis MID CIRC: 75 % Stenosis RIGHT CORONARY ARTERY: is occluded GRAFTS: ALMANZAR graft to the 1st OM is patent LOGAN graft to the RPDA is patent Saphenous Vein graft to the 1st Diagonal? is totally occluded Radial graft to the 1st OM? is totally occluded AORTIC ROOT: Angiographically normal COMPLICATIONS No Complications PROCEDURE MEDICATIONS Oxygen: 2 L/min via nasal cannula SUMMARY OF HEMODYNAMIC DATA Time AIR REST ECG 09:44:09 AO 149/80 (105) SA 10:03:18 LV 143/-15, 14 10:16:02 LV 144/-16, 19 10:16:08 LVp 147/-13, 19 10:16:14 AOp 149/73 (104) 10:16:19 Signed By Obie Zaldivar MD On 06/11/2018 12:11:43 Obie Zaldivar MD
--- NOTE | 2018-06-11 13:44 | CASEMGMT ---
VICKI RIVERA assessment: Face to Face with patient for initial transition planning/care coordination assessment. VICKI RIVERA introduced self and role at [facility], pt voices understanding and consents to assessment at this time. Pt is sitting up in bed in no distress at this time. Pt is A/Ox4 at this time and answers all questions appropriately at this time. Pt's at bedside and assists with questions at times. Care providers, pharmacy, and demographics verified at this time. PCP: Zohaib Specialists: nely Nuñez; Herrera Espinosa, cardio Preferred Pharmacy: [facility] Insurance: UMR Prescription Benefit: UMR Living Will/HPOA: Pt states does not have LW/HPOA but would like info at this time. Info provided to pt at this time with social science research assistant rac card. LNOK: Steff Corbett, Living Arrangements: Pt states lives with in 1 story home with 2 steps in and states no concerns at home at this time. Pt states is independent with ADL's. Transportation: Pt states drives self and states no transportation concerns at this time. DME/HHC: Pt states does not have any current DME and denies the need for any at this time. PT states has had HHC in the past s/p open heart. Pt states no hx of SNF in the past. Pt states no concerns with going home at time of discharge. 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 Pt states smokes 1pack/day and does not drink ETOH. Pt states no further concerns/needs at this time. CM to follow for any further discharge planning/needs. Advised pt to ask for CM if any further questions/concerns/needs arise, voices understanding. Plan: Home [place] VICKI RIVERA
[2018-06-11 14:41] LABS: Bedside Glucose 177 mg/dL (70-110)
[2018-06-11 19:56] LABS: Bedside Glucose 255 mg/dL (70-110)
[2018-06-11] MEDS: TICAGRELOR 90 MG TABLET PO (22:34)
[2018-06-11] MEDS: Atorvastatin Calcium 40 MG Tablet PO (22:34)
[2018-06-11 22:45] LABS: Bedside Glucose 201 mg/dL (70-110)
[2018-06-12] VITALS (9 sets, daily range): BP systolic 101–134; BP diastolic 61–71; PULSE 69–93; RESP 16; TEMP 36.5–36.6; O2SAT 92–97
[2018-06-12 06:50] LABS: Bedside Glucose 190 mg/dL (70-110)
[2018-06-12 07:41] LABS: Hematocrit 48.5 % (40-54); Hemoglobin 16.2 g/dl (13.0-16.5); Mean Corp Hgb Conc 33.4 g/gl (32-36); Mean Corpuscular Hgb 31.4 pg (27.0-32.0); Mean Platelet Vol. 10.3 fl (6.2-12.0); Platelet Count 276 K/mm3 (150-450); RBC Distribution Width CV 12.4 % (11.6-14.6); Red Blood Count 5.16 M/mm3 (4.6-6.2); White Blood Count 6.1 K/mm3 (4.4-11.0)
[2018-06-12 07:49] LABS: Scan Indicated on CBC? Y/N NO
[2018-06-12 07:55] LABS: ALB/GLOB Ratio 0.9 RATIO (0.9-2.4); AST(SGOT) 21 U/L (15-37); Alanine Aminotransfer ALT/SGPT 35 U/L (16-61); Albumin, Serum 3.5 g/dL (3.2-5.0); Alkaline Phosphatase 78 U/L (45-117); Anion Gap 9 (5-15); BUN 11 mg/dL (7-18); BUN/Creat Ratio 12.6 RATIO (10-20); Calcium,Total 8.8 mg/dL (8.5-10.1); Chloride 106 mmol/L (98-107); Cholesterol 170 mg/dL (200); Creatinine, Serum 0.88 mg/dL (0.70-1.30); EST Glomerular Filtration Rate 95 mL/min (>60); Est Glom Filt Rate - Afr Amer 115 mL/min (>60); Estimated Creatinine Clearance 97.45 ml/min; Globulin 3.8 g/dL (2.2-4.2); Glucose 199 mg/dL (74-106); High Density Lipoprotein 32 mg/dL; Protein, Total 7.3 g/dL (6.4-8.2); Sodium Level 138 mmol/L (136-145); Triglycerides 353 mg/dL; Very Low Density Lipoprotein 71 mg/dL (5-40)
[2018-06-12] MEDS: Insulin Lispro 100 UNIT/ML INSULN.PEN SQ ×2 (07:59→12:28)
[2018-06-12] MEDS: Losartan Potassium 25 MG Tablet PO (09:40)
[2018-06-12] MEDS: Atenolol 50 MG Tablet PO (09:41)
[2018-06-12] MEDS: TICAGRELOR 90 MG TABLET PO (10:06)
[2018-06-12 11:30] LABS: Bedside Glucose 299 mg/dL (70-110)
--- NOTE | 2018-06-12 12:08 | PCM.PN.CARD ---
Subjectve: Denies any complaints. No chest pain or shortness of breath. Ambulating. Objective: Vital Signs Temp Pulse Resp BP Pulse Ox 97.8 F 85 16 119/62 92 06/12/18 10:15 06/12/18 10:19 06/12/18 10:15 06/12/18 10:15 06/12/18 10:15 Oxygen Flow Rate (L/min) 2 Oxygen Delivery Method Room Air Weight: 92.4 kg Body Mass Index (BMI) 28.4 Finger Stick Blood Glucose 316 Intake and Output for Last 24 Hours 06/10/18 06/11/18 06/12/18 23:59 23:59 23:59 Intake Total 960 / 960 360 / 360 Balance 960 / 960 360 / 360 General: Healthy Appearing, Awake, Alert, Oriented x 3, No Acute Distress HEENT: Atraumatic, Normocephalic Oral: Moist Mucosa Neck: Supple, No JVD Lungs: Clear to auscultation Cardiovascular: Regular Rhythm, Normal S1, Normal S2 Vascular: - - Bilateral groins stable. No hematomas or bruit Abdomen: Bowel Sounds Present, Soft Extremities: No edema 06/11/18 11:08: Troponin I 1.120 H* 06/12/18 06:50: WBC 6.1, RBC 5.16, Hgb 16.2, Hct 48.5, MCV 94.0, MCH 31.4, MCHC 33.4, RDW 12.4, RDW Differential 42.0, Plt Count 276, MPV 10.3 06/12/18 06:50: Sodium 138, Potassium 4.0, Chloride 106, Carbon Dioxide 23.0, Anion Gap 9, BUN 11, Creatinine 0.88, Est GFR (MDRD) Af Amer 115, Est GFR (MDRD) Non-Af 95, BUN/Creatinine Ratio 12.6, Glucose 199 H, Calcium 8.8, Total Bilirubin 0.70, Triglycerides 353 H, Cholesterol 170, LDL Cholesterol 67, VLDL Cholesterol 71 H, HDL Cholesterol 32 L Rhythm: Normal sinus rhythm EKG: ECHO: Stress Test: Cardiac Cath: PCI: CT Surgery: Holter monitor: EPS: PPM: CXR: Chest CT Scan: Medical Necessity - Tobacco Use Smoking Status: Current every day smoker Tobacco Use: Cigarettes Assessment/Plan 1. Non-ST elevation myocardial infarction. Status post cardiac catheterization by Dr. Zaldivar. Normal LV systolic function. Severe disease noted in re[place]-sparks left circumflex. Medical management recommended by Dr. Zaldivar. Continue beta-blockers. Start on nitrates. Stop Brilinta. Load with clopidogrel. 2. History of CAD status post CABG. See #1 above. 3. Hypertension. 4. Diabetes mellitus. 5. Dyslipidemia. May discharge home in the morning if continues to be stable.
--- NOTE | 2018-06-12 12:13 | PN.CARD_ITS ---
Subjectve: Denies any complaints. No chest pain or shortness of breath. Ambulating. Objective: Vital Signs Temp Pulse Resp BP Pulse Ox 97.8 F 85 16 119/62 92 06/12/18 10:15 06/12/18 10:19 06/12/18 10:15 06/12/18 10:15 06/12/18 10:15 Oxygen Flow Rate (L/min) 2 Oxygen Delivery Method Room Air Weight: 92.4 kg Body Mass Index (BMI) 28.4 Finger Stick Blood Glucose 316 Intake and Output for Last 24 Hours 06/10/18 06/11/18 06/12/18 23:59 23:59 23:59 Intake Total 960 / 960 360 / 360 Balance 960 / 960 360 / 360 General: Healthy Appearing, Awake, Alert, Oriented x 3, No Acute Distress HEENT: Atraumatic, Normocephalic Oral: Moist Mucosa Neck: Supple, No JVD Lungs: Clear to auscultation Cardiovascular: Regular Rhythm, Normal S1, Normal S2 Vascular: - - Bilateral groins stable. No hematomas or bruit Abdomen: Bowel Sounds Present, Soft Extremities: No edema 06/11/18 11:08: Troponin I 1.120 H* 06/12/18 06:50: WBC 6.1, RBC 5.16, Hgb 16.2, Hct 48.5, MCV 94.0, MCH 31.4, MCHC 33.4, RDW 12.4, RDW Differential 42.0, Plt Count 276, MPV 10.3 06/12/18 06:50: Sodium 138, Potassium 4.0, Chloride 106, Carbon Dioxide 23.0, Anion Gap 9, BUN 11, Creatinine 0.88, Est GFR (MDRD) Af Amer 115, Est GFR (MDRD) Non-Af 95, BUN/Creatinine Ratio 12.6, Glucose 199 H, Calcium 8.8, Total Bilirubin 0.70, Triglycerides 353 H, Cholesterol 170, LDL Cholesterol 67, VLDL Cholesterol 71 H, HDL Cholesterol 32 L Rhythm: Normal sinus rhythm EKG: ECHO: Stress Test: Cardiac Cath: PCI: CT Surgery: Holter monitor: EPS: PPM: CXR: Chest CT Scan: Medical Necessity - Tobacco Use Smoking Status: Current every day smoker Tobacco Use: Cigarettes Assessment/Plan 1. Non-ST elevation myocardial infarction. Status post cardiac catheterization by Dr. Zaldivar. Normal LV systolic function. Severe disease noted in [place] left circumflex. Medical management recommended by Dr. Zaldivar. Continue beta- blockers. Start on nitrates. Stop Brilinta. Load with clopidogrel. 2. History of CAD status post CABG. See #1 above. 3. Hypertension. 4. Diabetes mellitus. 5. Dyslipidemia. May discharge home in the morning if continues to be stable.
[2018-06-12] MEDS: Aspirin E.C. 81 MG Tablet PO (13:43)
[2018-06-12] MEDS: Isosorbide Mononitrate 30 MG Tablet PO (13:43)
[2018-06-12] MEDS: Clopidogrel Bisulfate 300 MG Tablet PO (14:16)
--- NOTE | 2018-06-12 15:19 | DCINST_ITS ---
- Discharge Diagnoses Reason(s) for Visit for Discharge Instructions: Chest pain You will use the following diet at home:: Calorie/Carbohydrate Controlled (specify 1200, 1400, etc), Cardiac Your food should be the consistency of: Regular Your liquids should be the consistency of: Regular/Thin Discharge Activity: Return to Normal Activity Additional Instructions: Take all your medications as prescribed. You are strongly advised to quit smoking. Follow-up with Dr. Quinn within 2 weeks Allergies/Adverse Reactions: Allergies amoxicillin Allergy (Verified 06/11/18 05:37) Angioedema lindane Allergy (Verified 06/11/18 05:37) Rash Medications to take at Discharge Aspirin [Aspirin, Baby] 81 mg PO DAILY@0800 04/08/17 fenofibrate micronized 134 mg capsule 134 mg PO DAILY #30 cap 05/07/18 Buspirone HCl 5 mg PO BID 06/11/18 Insulin NPH Hum/Reg Insulin Hm [Humulin 70/30 Kwikpen] 22 units SC DINNER 06/11/18 Insulin NPH Hum/Reg Insulin Hm [Humulin 70/30 Kwikpen] 28 udc SC BREAKFAST 06/11/18 Atenolol [Tenormin (beta jonatan)] 50 mg PO DAILY #30 tablet 06/12/18 Atorvastatin Calcium [Lipitor] 40 mg PO QHS #30 tablet 06/12/18 Clopidogrel Bisulfate [Plavix] 75 mg PO DAILY #30 tablet 06/12/18 Isosorbide Mononitrate [Imdur] 30 mg PO DAILY #30 tablet 06/12/18 Losartan Potassium [Cozaar] 25 mg PO DAILY #30 tablet 06/12/18 Nicotine [Nicoderm Cq] 21 mg TRANSDERM. DAILY #30 patch 06/12/18 Nitroglycerin [Nitrostat] 0.4 mg SUBLINGUAL Q5M PRN #10 tablet 06/12/18 The following prescriptions were given: Atenolol [Tenormin (beta jonatan)] 50 mg PO DAILY #30 tablet Atorvastatin Calcium [Lipitor] 40 mg PO QHS #30 tablet Clopidogrel Bisulfate [Plavix] 75 mg PO DAILY #30 tablet Isosorbide Mononitrate [Imdur] 30 mg PO DAILY #30 tablet Losartan Potassium [Cozaar] 25 mg PO DAILY #30 tablet Nicotine [Nicoderm Cq] 21 mg TRANSDERM. DAILY #30 patch Nitroglycerin [Nitrostat] 0.4 mg SUBLINGUAL Q5M PRN #10 tablet PRN Reason: Cardiac/Chest Pain Primary Care Physician: Darrius Penny DO [Primary Care Provider] - Please follow up with your Primary Care Physician in: within 1-2 weeks Test Results: Test results from this visit will be discussed in further detail at your follow- up appointment, if applicable. Please Follow Up With: Calos Quinn MD When: within 1-2 weeks Proposed Discharge Date: 06/12/18
--- NOTE | 2018-06-12 15:20 | PCM.DC.SUM ---
Discharge Date and Diagnosis Date of Admission: 06/11/18 Date of Discharge: 06/12/18 - Primary Discharge Diagnosis Acute NSTEMI Nicotine dependence Uncontrolled Type 2 DM - Secondary Discharge Diagnosis Chronic Problems (Last Reviewed 01/05/18 @ 16:07 by Letty Matthews) GERD (gastroesophageal reflux disease) (Chronic) Pancreatitis (Chronic) High triglycerides (Chronic) High cholesterol (Chronic) On statin. Reports he is now taking fairly consistently. Enc to continue to do so. Also on fenofibrate. Hypertension (Chronic) Heart disease (Chronic) Emphysema lung (Chronic) Diabetes (Chronic) type 2 Dx : 2012 Last exacerbation : DKA : never Hypoglycemic episode : never ER visit : never Asthma (Chronic) Arthritis (Chronic) HLD (hyperlipidemia) (Chronic) Hypertriglyceridemia (Chronic) Type 2 diabetes mellitus with hyperglycemia (Chronic) Patient is doing very well at this point. He is taking insulin and is tolerating BG 120-140 range without complaint. Enc to let me know if he needs assist with cost. He is buying [place] 70/30 HTN (hypertension) (Chronic) Controlled. BP 118/75 Smoker (Chronic) Enc to work on smoking cessation. Discussed various ways to stop. not easy but he can do it. Discussed need to keep trying CAD (coronary artery disease) (Chronic) s/p CABG X4 2007 Non compliance w medication regimen (Chronic) Fatty liver (Chronic) GERD (gastroesophageal reflux disease) (Chronic) Hospital Course and Treatment Imaging Results: Clinical Impression(s) from Imaging Studies Chest X-Ray 06/11/18 05:39 IMPRESSION: Again noted increased lung markings within the lung bases. This appears relatively similar to prior study and may represent atelectasis/scarring. A superimposed infectious process cannot be totally excluded. Electronically Signed: Dexter Araya, at 6:23 EST Tel , Service support , Cardiology Operations: None Procedures: Cardiac catheterization Summary of Care Provided: 58 year old M with past medical history of CAD status post CABG 12 years ago in [facility], Hypertension, Type II DM, on insulin, chronic smoker who comes in with complaints of chest pain that started on the morning of admissions as he was at work moving objects onto a skid. Patient had elevated troponin of 0.837. He was seen by cardiology in the emergency department. He was managed as an STEMI and sent to cardiac cath later on in the day. Findings at cardiac cath showed triple-vessel disease of the RCA, LAD, left circumflex, and obtuse marginal. EF of 55%, there was a patent ALMANZAR to the obtuse marginal, patent LOGAN to the PDA, occluded SVG and radiographs of the left system, severely calcified left main and proximal left circumflex. Recall management was recommended. Patient was on aspirin and Brilinta. Patient was later switched to loading dose of Plavix as well as Plavix with aspirin. Patient continued to do well with no acute events overnight post cardiac cath. He was not in pain anymore and was discharged to follow-up with cardiology. He was strongly advised to stop smoking. Subjective: The day of discharge, patient was seen and examined. He denied any new complaints. No groin discomfort or chest pain or dizziness. Objective: Physical Exam General: Alert, Oriented x3, Cooperative, No apparent distress HEENT: Atraumatic, PERRLA, EOMI, Normocephalic Oral: Moist Mucosa Neck: Supple Lungs: Clear to auscultation, Normal air movement Cardiovascular: Regular rate, Regular Rhythm, Normal S1, Normal S2, No murmurs Abdomen: Bowel Sounds Present, Soft, Non Tender, Non-Distended, No Hepato-splenomegaly Extremities: No edema Skin: No rashes Musculoskeletal: No Tenderness to Palpation of Joints or Extremities Lymphatic: No Cervical, Supraclavicular, or Inguinal Adenopathy Neurological: Cranial nerves II-XII grossly intact, Neuro grossly intact Psych/Mental Status: Normal Affect, Appropriate - Physical Exam Vital Signs Temp Pulse Resp BP Pulse Ox 97.8 F 69 16 119/62 92 06/12/18 10:15 06/12/18 14:52 06/12/18 10:15 06/12/18 10:15 06/12/18 10:15 Oxygen Flow Rate (L/min) 2 Oxygen Delivery Method Room Air Weight: 92.4 kg Body Mass Index (BMI) 28.4 Finger Stick Blood Glucose 316 Intake and Output for Last 24 Hours 06/10/18 06/11/18 06/12/18 23:59 23:59 23:59 Intake Total 960 / 960 360 / 360 Balance 960 / 960 360 / 360 Laboratory Tests Past 24 Hrs 06/12/18 06/12/18 06:50 06:50 WBC 6.1 RBC 5.16 Hgb 16.2 Hct 48.5 MCV 94.0 MCH 31.4 MCHC 33.4 RDW 12.4 RDW Differential 42.0 Plt Count 276 MPV 10.3 Sodium 138 Potassium 4.0 Chloride 106 Carbon Dioxide 23.0 Anion Gap 9 BUN 11 Creatinine 0.88 Estim Creat Clear Calc 97.45 Est GFR (MDRD) Af Amer 115 Est GFR (MDRD) Non-Af 95 BUN/Creatinine Ratio 12.6 Glucose 199 H Calcium 8.8 Total Bilirubin 0.70 AST 21 ALT 35 Alkaline Phosphatase 78 Total Protein 7.3 Albumin 3.5 Globulin 3.8 Albumin/Globulin Ratio 0.9 Triglycerides 353 H Cholesterol 170 LDL Cholesterol 67 VLDL Cholesterol 71 H HDL Cholesterol 32 L POC Glucose 06/12/18 06/12/18 06/11/18 10:41 06:44 22:27 POC Glucose 299 H 190 H 201 H 06/11/18 16:10 POC Glucose 255 H Discharge Diet: Low fat/ Low Cholesterol, 4000 mg Sodium Diet, Carb Control Diet Discharge Activity: Return to Normal Activity Home Medications: Medications to take at Discharge Aspirin [Aspirin, Baby] 81 mg PO DAILY@0800 04/08/17 fenofibrate micronized 134 mg capsule 134 mg PO DAILY #30 cap 05/07/18 Buspirone HCl 5 mg PO BID 06/11/18 Insulin NPH Hum/Reg Insulin Hm [Humulin 70/30 Kwikpen] 22 units SC DINNER 06/11/18 Insulin NPH Hum/Reg Insulin Hm [Humulin 70/30 Kwikpen] 28 udc SC BREAKFAST 06/11/18 Atenolol [Tenormin (beta deovn)] 50 mg PO DAILY #30 tablet 06/12/18 Atorvastatin Calcium [Lipitor] 40 mg PO QHS #30 tablet 06/12/18 Clopidogrel Bisulfate [Plavix] 75 mg PO DAILY #30 tablet 06/12/18 Isosorbide Mononitrate [Imdur] 30 mg PO DAILY #30 tablet 06/12/18 Losartan Potassium [Cozaar] 25 mg PO DAILY #30 tablet 06/12/18 Nicotine [Nicoderm Cq] 21 mg TRANSDERM. DAILY #30 patch 06/12/18 Nitroglycerin [Nitrostat] 0.4 mg SUBLINGUAL Q5M PRN #10 tablet 06/12/18 Following Prescrptions Were Given to Patient: Atenolol [Tenormin (beta devon)] 50 mg PO DAILY #30 tablet Atorvastatin Calcium [Lipitor] 40 mg PO QHS #30 tablet Clopidogrel Bisulfate [Plavix] 75 mg PO DAILY #30 tablet Isosorbide Mononitrate [Imdur] 30 mg PO DAILY #30 tablet Losartan Potassium [Cozaar] 25 mg PO DAILY #30 tablet Nicotine [Nicoderm Cq] 21 mg TRANSDERM. DAILY #30 patch Nitroglycerin [Nitrostat] 0.4 mg SUBLINGUAL Q5M PRN #10 tablet PRN Reason: Cardiac/Chest Pain Primary Care Physician: Darrius Penny DO [Primary Care Provider] - Please follow up with your Primary Care Physician in: within 1-2 weeks Please Follow Up With: Calos Quinn MD When: within 1-2 weeks Disposition: Home Minutes spent on discharge:: 40 Patient Condition:: Stable Medical Necessity - Tobacco Use Smoking Status: Current every day smoker Tobacco Use: Cigarettes Meaningful Use Info Meaningful Use Diagnoses (Choose all that apply): AMI - AMI Aspirin given w/in 24hrs of arrival?: Yes ASA at discharge?: Yes Statins at discharge?: Yes Hemanth/ARB at discharge?: Yes Beta Devon at discharge?: Yes Done w/ Acute RI measure.: Yes Code Visit Inpatient E&M: 94333 Disch Hosp
--- NOTE | 2018-06-14 13:47 | CASEMGMT ---
VICKI RIVERA DC PHONE CALL DC DATE: 06/12/18 DC Disposition: Home LACE/STRATA: 12/07 Attempted call to phone. No answer, and message machine did not leave personal identifier. No message left at this time. Seth WEISS RN ACM
== END 2018-06-12 16:15 | disposition home or self-care (01) | DRG 281 ==
LOC: ED 06:19 → PCU 07:07
PROVIDERS: Admitting Provider Internal Medicine; Emergency Provider Emergency Medicine; Family Provider Student in an Organized Health Care Education/Training Program; PCP Student in an Organized Health Care Education/Training Program; Visit Provider Internal Medicine
DX: I21.4 Non-ST elevation (NSTEMI) myocardial infarction (principal); I25.810 Atherosclerosis of coronary artery bypass graft(s) without angina pectoris; I10 Essential (primary) hypertension; E78.5 Hyperlipidemia, unspecified; I25.10 Atherosclerotic heart disease of native coronary artery without angina pectoris; K21.9 Gastro-esophageal reflux disease without esophagitis; F17.210 Nicotine dependence, cigarettes, uncomplicated; F41.9 Anxiety disorder, unspecified; E11.65 Type 2 diabetes mellitus with hyperglycemia; Z95.1 Presence of aortocoronary bypass graft; Z79.4 Long term (current) use of insulin; J43.9 Emphysema, unspecified; J45.909 Unspecified asthma, uncomplicated
CPT/HCPCS: 36415; 71045; 80048; 80053; 80061; 82962; 83036; 83880; 84484; 85025; 85027; 93005; 93459; 93567; 99285; 99406; J7030; A4216; C1769; C1894; Q9967

== ENCOUNTER → 2018-07-13 | Outpatient (CLI) | payer OTHER, SELFPAY ==
[2018-06-23 15:36] VITALS: BMI 29.4
--- NOTE | 2018-07-13 14:51 | ECHOCS_ITS ---
Reason For Study: CAD Procedure This was a 2D Doppler, Color Flow transthoracic echocardiogram. Contrast injection was performed. Exam performed in department. Left Ventricle Normal LV size. Left ventricular systolic function is normal. The estimated ejection fraction is 65 %. Stage 1 diastolic dysfunction. No regional wall motion abnormalities noted. Right Ventricle Normal RV size. Normal systolic function. Atria Normal left atrium. Mitral Valve Normal mitral valve. Tricuspid Valve Normal tricuspid valve. Mild (1+) tricuspid valve insufficiency. Pulmonary artery systolic pressure is 36 mmHg. Aortic Valve Trisinus/trileaflet aortic valve. Mild focal aortic valve calcification. Pulmonic Valve Normal pulmonic valve. Great Vessels Normal aortic root. The pulmonary artery is normal size. Normal inferior vena cava. Pericardium/Pleural No pericardial effusion. Medication 22 gauge I.V. with prn adaptor inserted into right arm. Diluted definity 3ml given slow IV push to enhance endocardial definition. MMode/2D Measurements & Calculations LVIDd: 4.0 cm IVSd: 1.1 cm LVOT diam: 2.1 cm LVIDs: 2.8 cm LVPWd: 1.1 cm RVDd: 3.9 cm FS: 29.5 % LVOT area: 3.5 cm2 Ao root diam: 3.1 cm LAV(MOD-bp): 46.5 ml LVAd ap4: 27.5 cm2 LAV(MOD-bp) Indexed: 21.9 ml/m2 EDV(MOD-sp4): 75.4 ml LAV(MOD-sp2): 41.7 ml EDV(sp4-el): 78.3 ml LAV(MOD-sp4): 46.4 ml LVAs ap4: 13.0 cm2 ESV(MOD-sp4): 19.9 ml ESV(sp4-el): 21.1 ml EF(MOD-sp4): 73.7 % EF(sp4-el): 73.0 % SV(MOD-sp4): 55.6 ml SV(sp4-el): 57.2 ml LA A4 area: 17.4 cm2 LA dimension(2D): 4.0 cm RA A4 area: 14.3 cm2 Time Measurements MV dec time: 0.20 sec Doppler Measurements & Calculations MV E max dylan: 105.7 cm/sec Lat Peak E' Dylan: 8.4 cm/sec Med Peak E' Dylan: 6.8 cm/sec MV A max dylan: 77.2 cm/sec E/E' lat: 12.6 E/E' med: 15.5 MV E/A: 1.4 Ao V2 max: 131.4 cm/sec LV V1 max: 124.4 cm/sec TR max dylan: 285.7 cm/sec Ao max P.9 mmHg LV V1 max P.2 mmHg TR max P.7 mmHg NEREYAD(V,D): 3.3 cm2 Interpretation Summary Normal LV size. Left ventricular systolic function is normal. The estimated ejection fraction is 65 %. Stage 1 diastolic dysfunction. Mild (1+) tricuspid valve insufficiency. Contrast injection was performed. Ordering Physician: Calos Quinn Referring Physician: SHANE DONOVAN Performed By: Yulisa Heck, PENNY, RVT
== END | disposition home or self-care (01) ==
LOC: CVS 14:50
PROVIDERS: Family Provider Student in an Organized Health Care Education/Training Program; PCP Student in an Organized Health Care Education/Training Program; Referring Provider Internal Medicine Cardiovascular Disease; Visit Provider Internal Medicine Cardiovascular Disease
DX: I25.2 Old myocardial infarction (principal)
CPT/HCPCS: 93306; Q9957; A4216; C8929

== ENCOUNTER 2019-04-12 19:34 | Emergency (ER) | payer OTHER, SELFPAY ==
[2019-02-02 16:39] VITALS: BMI 28.5
[2019-04-12 19:34] VITALS: BP 155/69; PULSE 85; RESP 20; TEMP 36.7; O2SAT 97; BMI 28.5
--- NOTE | 2019-04-12 20:54 | ED.DCSUM_ITS ---
History of Present Illness Chief Complaint: Cough Informant: Patient Onset: Days - Set of illness early Thursday morning Context: Sudden Onset Timing: Continuous Quality: Cough, myalgias, arthralgias and documented fever Location: Respiratory Current Severity: Mild Maximum Severity: Moderate Worsened by: Shortness of breath with activity Relieved by: Nothing Associated Symptoms: Flulike symptoms Narrative: Patient is a 59-year-old smoker who presents with headache, myalgias, arthralgias and cough that is productive. Onset of illness greater than 48 hours ago. He reports documented temperature of greater than 101.0 ?F. He does complain of mild headache. Eyes photophobia, neck pain or neck stiffness. He does report nasal congestion and postnasal drainage. Denies sore throat or change in voice. Denies GI symptoms. Denies symptoms. Prior similar symptoms: No Recent Illness/Hospitalization: No - Past Medical History (1) Atherosclerosis of coronary artery of [place] heart without angina pectoris Status: Chronic (2) Carotid artery disease Status: Chronic Comment: right CEA 2013 (3) Essential (primary) hypertension Status: Chronic (4) Hyperlipidemia Status: Chronic (5) Insulin dependent diabetes mellitus Status: Chronic (6) Nicotine dependence Status: Chronic (7) H/O coronary artery bypass surgery Status: Resolved Comment: CABG x 4 ALMANZAR-LAD, LOGAN-RPDA, SVG-D1, Radial Graft- OM1 2006 Past Medical History - Allergies and Home Meds Allergies/Adverse Reactions: Allergies amoxicillin Allergy (Verified 01/06/19 13:45) Angioedema lindane Allergy (Verified 01/06/19 13:45) Rash Primary Care Physician: Ant Nuñez DO [Primary Care Provider] - Prior records reviewed: Yes Surgical History: coronary bypass surgery, - Lives: Spouse/ Significant Other Smoking Status: Current every day smoker Alcohol: None Drugs: None - Family History Maternal Family History: Family History (Last Reviewed 02/09/19 @ 14:42 by Ant Nuñez DO) Father Asthma Alcoholism Arthritis Heart disease Hypertension High cholesterol CVA (cerebral vascular accident) Grandfather Myocardial infarction Family History: Reports: No pertinent history Paternal Family History: Family History (Last Reviewed 02/09/19 @ 14:42 by Ant Nuñez DO) Father Asthma Alcoholism Arthritis Heart disease Hypertension High cholesterol CVA (cerebral vascular accident) Grandfather Myocardial infarction Family History: Reports: Asthma, Cancer, Heart Disease, Hypertension, Stroke Review of Systems General: Reports: Chills, Fever, Malaise. Denies: Sweats, Weight loss Eyes: Denies: Visual changes - bilaterally, Blurred Vision - bilaterally ENT: Reports: Rhinorrhea. Denies: Bilateral ear pain, Sore throat Cardiovascular: Denies: Chest pain, Palpitations Respiratory: Reports: Dyspnea, Cough, Sputum. Denies: Dyspnea on exertion, Orthopnea, Paroxysmal nocturnal dyspnea Gastrointestinal: Denies: Abdominal pain, Nausea, Vomiting, Diarrhea, Melena, Hematochezia Genitourinary: Denies: Dysuria, Hematuria, Frequency Musculoskeletal: Reports: Myalgias, Arthralgias. Denies: Neck pain, Back pain, Swelling, Extremity Pain, -, - Neurological: Reports: Headache. Denies: Weakness, Parasthesia, Numbness, -, - Hematologic: Denies: Easy bruising, Easy bleeding Physical Exam Vital Signs/Narrative: Vital Signs Temp Pulse Resp BP Pulse Ox 04/12/19 19:34 98.1 F 85 20 H 155/69 H 97 Inital Vital Signs reviewed: Yes General: Well nourished, Well developed, No Acute Distress, - - Appears ill Head: Normocephalic, Atraumatic Eyes: Perrl, EOMI, - - Active is injected. Negative for: Pale conjunctiva, Scleral icterus ENT: Moist mucous membranes, Nasal congestion. Negative for: Sinus tenderness Neck: Supple, Nontender, No lymphadenopathy, No JVD Cardiovascular: Regular rate, Regular rhythm, No murmurs, Normal S1, Normal S2 Respiratory: No distress, CTA bilaterally, Chest nontender, Wheezing - Remittent wheezing with forced expiration only Abdomen: Soft, Nontender, Nondistended, Normal bowel sounds Back: Nontender, Normal Inspection Extremities: Nontender, No edema Skin: Normal color, No rash Neurological: Alert, Oriented x3, Cranial nerves II-XII grossly intact, Normal Strength, Normal Sensation Psychological: Normal affect, Normal Mood Diagnostic/Tx/Re-eval Chest X-Ray - ED: 2 View, Read by ED Physician, Normal, Heart, Mediastinum, Bony Structures, No Acute Disease, Chronic Changes, - - X-ray interpreted by me at 2133 04/12/19 21:10 Chest PA and Lateral [RAD] Stat Rapid influenza negative for type a and type B. - Medical Decision Making Patient reports fever with productive cough and is a smoker chest x-ray was obtained to evaluate for pneumonia. Symptoms are suggestive of influenza. Rapid influenza test was obtained as well. With a negative chest x-ray negative once the patient was discharged with prescription for prednisone and metered-dose inhaler since he has mild wheezing and no other abnormalities. ED Disposition - Plan for ED Patient: Disposition: Home or Assisted Living Diagnosis: Bronchitis, acute, with bronchospasm Instructions: BRONCHITIS with Wheezing (Adult) Prescriptions: Prednisone [Deltasone] 40 mg PO DAILY #10 tab Transmission Status: Pending to [id number] Albuterol Inhaler [Ventolin Hfa] 2 puff INHALATION Q4H PRN PRN #1 inhaler PRN Reason: Wheezing Transmission Status: Pending to [id number] Referrals: Ant Nuñez DO [Primary Care Provider] - 1 Week if not improving
--- NOTE | 2019-04-12 21:10 | RAD_ITS ---
STUDY: X-RAY CHEST REASON FOR EXAM: Male, 59 years old. Cough TECHNIQUE: Frontal and lateral views of the chest COMPARISON: 06/11/2018 FINDINGS: The lungs are clear. There are no pleural effusions. There is no pneumothorax. The heart is normal in size. The patient is status post sternotomy. There are degenerative changes in the spine. RAD/Chest PA and Lateral IMPRESSION: No acute thoracic pathology. Electronically Signed: Michael Gardner, at 21:34 EST Tel , Service support ,
[2019-04-12] MEDS: predniSONE 20 MG Tablet 60 MG PO (22:20)
[2019-04-12 22:24] VITALS: RESP 20
== END 2019-04-12 22:25 | disposition home or self-care (01) ==
PROVIDERS: Emergency Provider Emergency Medicine; Family Provider Family Medicine; PCP Family Medicine
DX: J20.9 Acute bronchitis, unspecified (principal); I25.10 Atherosclerotic heart disease of native coronary artery without angina pectoris; I65.21 Occlusion and stenosis of right carotid artery; I10 Essential (primary) hypertension; E78.5 Hyperlipidemia, unspecified; E11.9 Type 2 diabetes mellitus without complications; Z95.1 Presence of aortocoronary bypass graft; Z79.82 Long term (current) use of aspirin; Z79.02 Long term (current) use of antithrombotics/antiplatelets; Z79.4 Long term (current) use of insulin; Z79.84 Long term (current) use of oral hypoglycemic drugs; Z79.899 Other long term (current) drug therapy; F17.200 Nicotine dependence, unspecified, uncomplicated
CPT/HCPCS: 71046; 87804; 99283

== ENCOUNTER → 2019-05-27 08:10 | Outpatient (CLI) | payer OTHER, SELFPAY ==
[2019-05-20 14:46] VITALS: BMI 28.5
[2019-05-27 13:05] LABS: Hematocrit 51.6 % (40-54); Mean Corp Hgb Conc 32.9 g/dL (32-36); Mean Corpuscular Volume 94.2 fL (80-94); Mean Platelet Vol. 10.5 fl (6.2-12.0); Platelet Count 235 K/mm3 (150-450); RBC Distribution Width CV 11.9 % (11.6-14.6); RBC Distribution Width SD 41.1 fl (35.1-43.9); Red Blood Count 5.48 M/mm3 (4.6-6.2); White Blood Count 7.4 K/mm3 (4.4-11.0)
[2019-05-27 13:42] LABS: Microalbumin,Random Urine 16.1 mg/L (NO RANGE EST.); Microalbumin:Creatinine Ratio 74.9 mg/g CRE (<30 mg/g CRE)
[2019-05-27 13:46] LABS: AST(SGOT) 24 U/L (15-37); Alanine Aminotransfer ALT/SGPT 44 U/L (16-61); Albumin, Serum 3.9 g/dL (3.2-5.0); Alkaline Phosphatase 69 U/L (45-117); Anion Gap 6 (5-15); BUN 14 mg/dL (7-18); BUN/Creat Ratio 14.7 RATIO (10-20); Calcium,Total 9.3 mg/dL (8.5-10.1); Chloride 100 mmol/L (98-107); Cholesterol 198 mg/dL (200); Creatinine, Serum 0.95 mg/dL (0.70-1.30); EST Glomerular Filtration Rate 86 mL/min (>60); Est Glom Filt Rate - Afr Amer 104 mL/min (>60); Globulin 3.9 g/dL (2.2-4.2); Glucose 202 mg/dL (74-106); High Density Lipoprotein 39 mg/dL; Potassium 4.1 mmol/L (3.5-5.1); Protein, Total 7.8 g/dL (6.4-8.2); Sodium Level 135 mmol/L (136-145); Thyroid Stim Hormone (TSH) 0.86 uIU/mL (0.358-3.74); Triglycerides 514 mg/dL
== END ==
LOC: BIMLAB 08:11
PROVIDERS: PCP Family Medicine; Referring Provider Nurse Practitioner Family; Visit Provider Nurse Practitioner Family
DX: I10 Essential (primary) hypertension (principal); E78.5 Hyperlipidemia, unspecified; I25.10 Atherosclerotic heart disease of native coronary artery without angina pectoris; E11.9 Type 2 diabetes mellitus without complications; Z79.4 Long term (current) use of insulin
CPT/HCPCS: 36415; 80053; 80061; 82043; 82570; 84443; 85027

== ENCOUNTER → 2019-06-01 08:50 | Outpatient (CLI) | payer OTHER, SELFPAY ==
[2019-06-01 08:30] VITALS: BMI 28.5
[2019-06-01 09:02] LABS: Bacteria 0 SEEN /hpf (None Seen); Mucous, Urine 0 SEEN /hpf (<or=2+); Squamous Epithelial Cells - UA 0 SEEN /hpf (0-5)
[2019-06-01 12:12] LABS: Color, Urine Yellow (Yellow); Glucose, Dipstick 1000 mg/dl (Normal); Ketone-Dipstick Negative (Negative); Leukocyte Esterase-Dipstick 25 /ul (Negative); Nitrite-Dipstick Negative (Negative); Occult Blood-Urine 10 /ul (Negative); Protein-Dipstick 30 mg/dl (Negative); Urine Bilirubin Dipstick Negative (Negative); Urine Clarity Sl. Cloudy (Clear); Urine Urobilinogen Normal (Normal)
[2019-06-01 12:32] LABS: Red Blood Cells-Urine 0-5 SEEN /hpf (0-5); White Blood Cells 5-10 SEEN /hpf (0-5)
== END ==
LOC: BIMLAB 08:59
PROVIDERS: PCP Family Medicine; Referring Provider Nurse Practitioner Family; Visit Provider Nurse Practitioner Family
DX: R30.0 Dysuria (principal); Z12.5 Encounter for screening for malignant neoplasm of prostate
CPT/HCPCS: 36415; 81001; 84153; 87086; G0103

== ENCOUNTER → 2019-06-02 | Outpatient (CLI) | payer OTHER, SELFPAY ==
[2019-06-01 08:30] VITALS: BMI 28.5
== END | disposition home or self-care (01) ==
LOC: LABSPEC 15:55
PROVIDERS: PCP Family Medicine; Referring Provider Urology; Visit Provider Urology
DX: N39.0 Urinary tract infection, site not specified (principal)
CPT/HCPCS: 87086

== ENCOUNTER → 2019-07-18 13:37 | Outpatient (CLI) | payer OTHER, SELFPAY ==
[2019-06-08 15:07] VITALS: BMI 28.5
[2019-07-18 14:54] LABS: PSA,Total- Diagnostic 1.97 ng/mL (0.0-4.0)
== END ==
LOC: LAB 13:40
PROVIDERS: PCP Family Medicine; Referring Provider Urology; Visit Provider Urology
DX: R97.20 Elevated prostate specific antigen [PSA] (principal)
CPT/HCPCS: 36415; 84153

== ENCOUNTER → 2019-08-16 13:07 | Outpatient (CLI) | payer OTHER, SELFPAY ==
[2019-05-20 14:46] VITALS: BMI 28.5
[2019-08-16 12:37] VITALS: BMI 28.5
--- NOTE | 2019-08-16 13:08 | CT_ITS ---
STUDY: LOW DOSE CT LUNG CANCER SCREENING REASON FOR EXAM: Male, 59 years old. 45 YR SMOKER X 1-2 PPD, C/O LT LUNG PAIN, PR=056, DB, HTN, CABG, CURRENTLY SMOKING RADIATION DOSAGE (If Supplied By Facility): CTDIvol = ( 4.02 ) mGy, DLP = ( 130.89 ) mGycm TECHNIQUE: No contrast was administered. Low dose technique was utilized (average mAS-38 and kVp 120). 1.25 mm axial source images with a slice interval of 1.25-mm were reconstructed in lung windows. 2.5 mm axial source images with a slice interval of 2.5-mm were reconstructed in lung windows. 5.0 mm axial source images with a slice interval of 5.0-mm were reconstructed in soft tissue windows. Nodule measured using lung windows on PACS and/or independent workstation with automated measurement of minimum and maximum diameter. Nodule measurement reported as average diameter rounded to the nearest whole number. Growth is defined as an increase ins size of greater than 1.5 mm. COMPARISON: Comparison is made with prior examination dated July 10, 2017. NODULES: No nodules are seen. Emphysema: Hyperinflation. Mild linear scarring in the anterior aspect of the right upper lobe as well as the left and right lower lobes. Endobronchial lesion: None Aorta: Atherosclerotic calcification of the aortic arch. Coronary arteries: Coronary artery calcification. Prior CABG. Mediastinal nodes: Small benign-appearing based on the lymph nodes. Other chest and abdominal findings: Degenerative changes of the dorsal spine. CT/Low Dose CT Lung Screening IMPRESSION: Lung-RADS category 2 - Continue annual screening with LDCT in 12 months. IMPORTANT NOTES FOR USE: ACR Lung-RADS Version 1.0 Assessment Categories Release Date: August 01, 2013 Category: Coded 0-4 bases on nodule(s) with highest degree of suspicion. Negative screen is defined as categories 1 and 2; a positive screen is defined as categories 3 and 4. Category 3 and 4A nodules that are unchanged on interval CT should be coded as category 2, and individuals returned to screening in 12 months. Category 4X: Category 3 or 4 nodules with additional imaging findings that increase the suspicion of lung cancer, such as spiculation, GGN that doubles in size in 1 year, enlarged lymph notes, etc. Category Modifiers: S (significant finding unrelated to lung cancer) and C (prior history of treated lung cancer) may be added to the 0-4 Lung-RADS Electronically Signed: Sam Duncan, at 13:44 EDT , Service support ,
== END ==
PROVIDERS: PCP Family Medicine; Referring Provider Nurse Practitioner Family; Visit Provider Nurse Practitioner Family
DX: F17.209 Nicotine dependence, unspecified, with unspecified nicotine-induced disorders (principal); Z12.2 Encounter for screening for malignant neoplasm of respiratory organs
CPT/HCPCS: G0297

== ENCOUNTER 2019-11-14 02:03 | Emergency (ER) | payer OTHER, SELFPAY ==
[2019-08-19 16:07] VITALS: BMI 28.5
[2019-11-14 02:04] VITALS: BP 159/95; PULSE 82; RESP 18; TEMP 36.9; O2SAT 94; BMI 29.1
--- NOTE | 2019-11-14 02:07 | ED.VIS.GEN ---
History of Present Illness Chief Complaint: Poisoning Informant: Patient Onset: Today Context: Gradual Onset Timing: Continuous Current Severity: Moderate Maximum Severity: Moderate Narrative: Patient is a 59-year-old male with history of COPD who is not on home oxygen that presents to the emergency department concerned that he may have been exposed to carbon oxide. Patient states he was working in an unventilated area. He states that there was a leak in a pipe. He states that he thought it could be carbon oxide. He was feeling lightheaded and dizzy. He states his removing himself in a situation, is feeling improved but he was concerned. He denies any chest pain or shortness of breath. He denies any fevers or chills. He states he is otherwise been in his normal state of health. Prior similar symptoms: No Recent Illness/Hospitalization: No Past Medical History - Allergies and Home Meds Allergies/Adverse Reactions: Allergies amoxicillin Allergy (Verified 11/14/19 02:04) Angioedema lindane Allergy (Verified 11/14/19 02:04) Rash Primary Care Physician: Ant Nuñez DO [Primary Care Provider] - Prior records reviewed: Yes Past Medical History: - - Coronary vascular disease, COPD, hypertension Surgical History: coronary bypass surgery, - Smoking Status: Current every day smoker - Family History Maternal Family History: Family History (Last Updated 08/16/19 @ 12:32 by Jenny Valentino) Father Asthma Alcoholism Arthritis Heart disease Hypertension High cholesterol CVA (cerebral vascular accident) Lung cancer Grandfather Myocardial infarction Family History: Reports: No pertinent history Paternal Family History: Family History (Last Updated 08/16/19 @ 12:32 by Jenny Valentino) Father Asthma Alcoholism Arthritis Heart disease Hypertension High cholesterol CVA (cerebral vascular accident) Lung cancer Grandfather Myocardial infarction Family History: Reports: Asthma, Cancer, Heart Disease, Hypertension, Stroke Review of Systems General: Denies: Chills, Fever, Sweats Eyes: Denies: Visual changes - bilaterally, Diplopia ENT: Denies: Rhinorrhea, Sore throat Cardiovascular: Denies: Chest pain, Palpitations Respiratory: Denies: Dyspnea, Cough, Dyspnea on exertion Gastrointestinal: Reports: Nausea. Denies: Abdominal pain, Vomiting, Diarrhea, Melena, Hematochezia Genitourinary: Denies: Dysuria, Hematuria, Frequency Musculoskeletal: Denies: Back pain, Extremity Pain Skin: Denies: Rash, Wounds Neurological: Denies: Headache, Weakness, Numbness Physical Exam Vital Signs/Narrative: Vital Signs Temp Pulse Resp BP Pulse Ox 11/14/19 02:04 98.4 F 82 18 159/95 H 94 Inital Vital Signs reviewed: Yes General: Well nourished, Well developed, No Acute Distress Head: Normocephalic, Atraumatic Eyes: Perrl, EOMI ENT: Moist mucous membranes, No rhinorrhea Neck: Supple, Nontender Cardiovascular: Regular rate, Regular rhythm, No murmurs Respiratory: No distress, CTA bilaterally, Chest nontender Abdomen: Soft, Nontender, Nondistended, Normal bowel sounds Back: Nontender, Normal Inspection Extremities: Nontender, No edema Skin: Normal color, No rash Neurological: Alert, Oriented x3, Cranial nerves II-XII grossly intact, Normal Strength, Normal Sensation Psychological: Normal affect, Normal Mood Diagnostic/Tx/Re-eval Abnormal Lab Results 11/14/19 02:20 VBG Carboxyhemoglobin 7.5 H - Medical Decision Making Patient presents after chemical inhalation. He is concern for carbon oxide. He is not tachypneic or hypoxic. The patient is a heavy smoker. Carbon oxide level was obtained. It was 7.5, consistent with the level of his smoking. He is otherwise asymptomatic. At this point, I do feel that he safe for discharge. He is comfortable with this plan of care. Impression 1. Chemical inhalation ED Disposition - Plan for ED Patient: Instructions: ED Inhalation Chemical Referrals: EMMY BOOTH [GROUP OF PHYSICIANS] -
[2019-11-14 02:30] LABS: Carboxyhemoglobin Frac (CO) 7.5 % (0.0-1.5)
--- NOTE | 2019-11-14 02:44 | ED.RN ---
ATTEMPTED TO CALL [facility] REP TO GIVE A DRUG TEST, LEFT SEVERAL VOICE MESSAGES WITH NO ANSWER, RN INFORMED OF THE ATTEMPTS
== END 2019-11-14 02:57 | disposition home or self-care (01) ==
LOC: ED 02:14
PROVIDERS: Emergency Provider Emergency Medicine; PCP Family Medicine
DX: T58.91XA Toxic effect of carbon monoxide from unspecified source, accidental (unintentional), initial encounter (principal); R42 Dizziness and giddiness; R11.0 Nausea; Y92.9 Unspecified place or not applicable; I10 Essential (primary) hypertension; J44.9 Chronic obstructive pulmonary disease, unspecified; I25.10 Atherosclerotic heart disease of native coronary artery without angina pectoris; Z95.1 Presence of aortocoronary bypass graft; Z79.02 Long term (current) use of antithrombotics/antiplatelets; Z79.82 Long term (current) use of aspirin; Z79.899 Other long term (current) drug therapy; F17.200 Nicotine dependence, unspecified, uncomplicated
CPT/HCPCS: 82375; 99282

== ENCOUNTER → 2019-11-28 17:47 | Outpatient (CLI) | payer OTHER, SELFPAY ==
[2019-11-14 02:04] VITALS: BMI 29.1
== END ==
PROVIDERS: PCP Family Medicine
DX: Z20.828 Contact with and (suspected) exposure to other viral communicable diseases (principal)
CPT/HCPCS: 87635; 94799; U0003

== ENCOUNTER → 2020-01-10 14:22 | Outpatient (CLI) | payer OTHER, SELFPAY ==
[2020-01-10 13:38] VITALS: BMI 28.5
[2020-01-10 15:56] LABS: AST(SGOT) 22 U/L (15-37); Alanine Aminotransfer ALT/SGPT 35 U/L (16-61); Albumin, Serum 3.7 g/dL (3.2-5.0); Alkaline Phosphatase 80 U/L (45-117); Bilirubin, Direct 0.08 mg/dL (0.00-0.30); Cholesterol 241 mg/dL (200); High Density Lipoprotein 39 mg/dL; Protein, Total 7.7 g/dL (6.4-8.2); Triglycerides 884 mg/dL
== END ==
LOC: LAB 14:24
PROVIDERS: PCP Family Medicine; Referring Provider Internal Medicine Cardiovascular Disease; Visit Provider Internal Medicine Cardiovascular Disease
DX: E78.5 Hyperlipidemia, unspecified (principal)
CPT/HCPCS: 36415; 80061; 80076

== ENCOUNTER 2020-01-15 21:03 | Emergency (ER) | payer OTHER, SELFPAY ==
[2020-01-13 15:59] VITALS: BMI 28.5
[2020-01-15 21:04] VITALS: BP 105/59; PULSE 74; RESP 16; TEMP 36.6; O2SAT 98; BMI 28.2
--- NOTE | 2020-01-15 21:20 | ED.RN ---
RN CALLED FOR EKG, PULLED OLD EKGS FOR
--- NOTE | 2020-01-15 21:28 | CT_ITS ---
HISTORY: EPIGASTRIC PAIN. Hx of CABG, diabetes, HTN, HLD and COPD EXAMINATION: CT Abdomen And Pelvis W/O Contrast Injection TECHNIQUE: Helically acquired images were obtained of the abdomen and pelvis following IV contrast. A radiation dose optimization technique was used for this scan. IV Contrast dosage and agent: 100mL Isovue-370 contrast Oral contrast: None. COMPARISON: 07/10/2017 FINDINGS: Lower thorax: Prior median sternotomy. Mild dependent atelectasis, not unusual. No pleural effusion or pericardial effusion. No radiopaque gallstones and no biliary dilatation. Fatty liver which is normal in size. Normal spleen and pancreas. Both kidneys show normal size and position. Central renal vascular calcifications. No hydronephrosis or hydroureter. The adrenal glands are not enlarged. Abdominal aorta is atherosclerotic and normal in caliber. Stable fusiform dilatation of the right common iliac artery which measures 2.7 cm in diameter. No ascites or retroperitoneal lymph node enlargement. GI tract: No obstruction. Normal appendix. Mild diverticulosis coli. Left inguinal hernia which is predominantly fat-containing and also contains a small element of sigmoid colon mesentery. Pelvis: Poor distention of the urinary bladder. The prostate gland is upper normal in size. Left inguinal hernia similar in size compared to the 2018 exam. Bones: No acute osseous abnormality. CT/Abdomen/Pelvis W IV Cont ONLY IMPRESSION: 1. No free fluid or acute abdominal disease identified. 2. Prior CABG. 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 3. Additional chronic findings include fatty liver infiltration, mild diverticulosis coli, and left inguinal hernia. Individualized dose optimization techniques were used for this CT. at 2338 Reported and signed by: Samuel Giron MD Electronically Signed: Samuel Giron, at 23:37 EDT Tel , Service support ,
--- NOTE | 2020-01-15 21:29 | ED.DCSUM_ITS ---
History of Present Illness Chief Complaint: Abd Pain Informant: Patient - Abdominal Pain/Flank Pain Onset: Days - 2-3 Context: Gradual Onset Timing: Continuous Quality: Aching Location: Epigastric Current Severity: Mild Maximum Severity: Moderate Worsened by: Food Relieved by: Nothing - Nausea/Vomiting/Emesis GI Symptom: Nausea. Negative for: Vomiting - Diarrhea/Melena/Hematochezia GI Symptom: Diarrhea. Negative for: Melena, Hematochezia Onset: Yesterday Associated Symptoms: Negative for: Dysuria, Frequency, Hematuria, Urgency Narrative: Patient states he started feeling poorly 3 days ago. Upper abdominal discomfort, occasionally productive cough of clear sputum no blood, subjective fevers, myalgias, headaches, nausea, poor appetite. Abdominal pain does not radiate into his back. Has had prior herniorrhaphy, not recently, no other abdominal surgeries. Had a CABG remotely, denies having any chest pain or short ness of breath. Patient presents during the national coronavirus emergency declaration/pandemic. He denies any known contact with anyone infected with COVID-19. He denies traveling out of the immediate area recently. - Past Medical History (1) Atherosclerosis of coronary artery of [place] heart without angina pectoris Status: Chronic (2) Essential (primary) hypertension Status: Chronic (3) Hyperlipidemia Status: Chronic (4) Insulin dependent diabetes mellitus Status: Chronic Past Medical History - Allergies and Home Meds Allergies/Adverse Reactions: Allergies amoxicillin Allergy (Verified 01/15/20 21:04) Angioedema lindane Allergy (Verified 01/15/20 21:04) Rash Primary Care Physician: Ant Nuñez DO [Primary Care Provider] - Surgical History: coronary bypass surgery, herniorrhaphy Smoking Status: Current every day smoker - Family History Maternal Family History: Family History (Last Reviewed 01/10/20 @ 14:[address] Calos Quinn MD) Father Asthma Alcoholism Arthritis Heart disease Hypertension High cholesterol CVA (cerebral vascular accident) Lung cancer Grandfather Myocardial infarction Family History: Reports: No pertinent history Paternal Family History: Family History (Last Reviewed 01/10/20 @ 14:[address] Calos Quinn MD) Father Asthma Alcoholism Arthritis Heart disease Hypertension High cholesterol CVA (cerebral vascular accident) Lung cancer Grandfather Myocardial infarction Family History: Reports: Asthma, Cancer, Heart Disease, Hypertension, Stroke Review of Systems General: Reports: Fever, Malaise, Subjective. Denies: Chills, Sweats Eyes: Denies: Visual changes - bilaterally, Diplopia ENT: Denies: Bilateral ear pain, Rhinorrhea, Sore throat Cardiovascular: Denies: Chest pain, Palpitations Respiratory: Reports: Cough, Sputum - Occasional, clear. Denies: Dyspnea, Dyspnea on exertion Gastrointestinal: Reports: Abdominal pain, Nausea, Diarrhea. Denies: Vomiting, Melena, Hematochezia Genitourinary: Denies: Dysuria, Hematuria, Frequency Musculoskeletal: Reports: Myalgias. Denies: Neck pain, Back pain, Swelling Skin: Denies: Rash, Wounds Neurological: Reports: Headache. Denies: Weakness, Numbness Physical Exam Vital Signs/Narrative: Vital Signs Temp Pulse Resp BP Pulse Ox 01/15/20 21:04 97.8 F 74 16 105/59 L 98 Inital Vital Signs reviewed: Yes General: Well nourished, Well developed, Obese, No Acute Distress Head: Normocephalic, Atraumatic Eyes: Perrl, EOMI ENT: Moist mucous membranes, No rhinorrhea Neck: Supple, Nontender, No lymphadenopathy, No JVD Cardiovascular: Regular rate, Regular rhythm, No murmurs. Negative for: Tachycardia Respiratory: No distress, CTA bilaterally, Chest nontender Abdomen: Soft, Nondistended, Normal bowel sounds, Tender - Epigastrium only. Negative for: Guarding, Rebound tenderness, Pulsatile mass, Fish's sign Back: Nontender, Normal Inspection. Negative for: CVA tenderness Extremities: Nontender, No edema. Negative for: Calf Tenderness Skin: Normal color, No rash, No Trauma Neurological: Alert, Oriented x3, Cranial nerves II-XII grossly intact, Normal Strength, Normal Sensation Psychological: Normal affect, Normal Mood Diagnostic/Tx/Re-eval Impressions Abdomen/Pelvis CT 01/15/20 21:28 IMPRESSION: 1. No free fluid or acute abdominal disease identified. 2. Prior CABG. 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 3. Additional chronic findings include fatty liver infiltration, mild diverticulosis coli, and left inguinal hernia. Individualized dose optimization techniques were used for this CT. at 2338 Reported and signed by: Samuel Giron MD Electronically Signed: Samuel Giron, at 23:37 EDT Tel , Service support , Chest X-Ray 01/15/20 22:33 IMPRESSION: Normal x-ray examination of the chest. Electronically Signed: Sybil Samayoa MD at 22:59 EDT Tel , Service support , 01/15/20 21:28 Abdomen/Pelvis W IV Cont ONLY [CT] Stat 01/15/20 22:33 Chest 1 View (Portable) [RAD] Stat Laboratory Results 01/15/20 01/15/20 01/15/20 21:17 21:17 23:00 WBC 7.9 RBC 5.23 Hgb 16.6 H Hct 50.1 MCV 95.8 H MCH 31.7 MCHC 33.1 RDW Std Deviation 43.0 RDW Coeff of Maycol 12.1 Plt Count 264 MPV 9.9 Immature Gran % (Auto) 0.100 Neut % (Auto) 59.1 Lymph % (Auto) 31.2 [place] % (Auto) 7.0 Eos % (Auto) 2.3 Baso % (Auto) 0.3 Absolute Neuts (auto) 4.7 Absolute Lymphs (auto) 2.45 Nucleated RBC % 0 Sodium 135 L Potassium 4.1 Chloride 100 Carbon Dioxide 27.0 Anion Gap 8 BUN 19 H Creatinine 1.39 H Estim Creat Clear Calc 60.94 Est GFR (MDRD) Af Amer 67 Est GFR (MDRD) Non-Af 55 L BUN/Creatinine Ratio 13.7 Glucose 296 H Calcium 9.4 Total Bilirubin 0.60 AST 22 ALT 34 Alkaline Phosphatase 76 Total Protein 7.5 Albumin 3.7 Globulin 3.8 Albumin/Globulin Ratio 1.0 Lipase 146 Urine Color Yellow Urine Clarity Clear Urine pH 5.0 Ur Specific [place] 1.015 Urine Protein 30 H Urine Glucose (UA) 1000 H Urine Ketones Negative Urine Occult Blood 50 H Urine Nitrite Negative Urine Bilirubin Negative Urine Urobilinogen Normal Ur Leukocyte Esterase 500 H Urine RBC 10-25 SEEN Urine WBC 25-50 SEEN Ur Squamous Epith Cells 0 SEEN Urine Bacteria 0 SEEN Urine Mucus 0 SEEN - Medical Decision Making Patient was given Toradol, GI cocktail, Zofran. His headache and his abdominal discomfort, much improved. Nausea is resolved. He feels like he could eat, lightly. CT shows nothing acute. His urine appears to be infected. I sent that for culture. He is not septic and well-appearing. He is comfortable going home. I also discussed with him the possibility of COVID-19 given all of the symptoms he has. We did send a test, he does not need to be admitted since he does not have an oxygen requirement, so that will be run as an outpatient and he understands to quarantine in the meantime. ED Disposition - Plan for ED Patient: Disposition: Home or Assisted Living Diagnosis: Viral URI with cough, UTI (urinary tract infection), Diffuse abdominal pain Instructions: ED URI Viral, Understanding Urinary Tract Infections (UTIs), ED Unknown Causes of Abdominal Pain Male Prescriptions: Sulfamethoxazole/Trimethoprim [Bactrim Ds Tablet] 1 ea PO BID #14 tab Prescription Printed Referrals: Ant Nuñez DO [Primary Care Provider] - 3-5 Days if not improving
[2020-01-15 21:37] LABS: Absolute Lymphocyte Count 2.45 X10^3/uL (0.83-4.51); Absolute Neutrophil Count 4.7 X10^3/uL (2.0-7.7); Basophil# 0.02 X10^3/uL; Basophil% 0.3 % (0-1); Eosinophil# 0.18 X10^3/uL; Eosinophils% 2.3 % (0-5); Hematocrit 50.1 % (40-54); Hemoglobin 16.6 g/dL (13.0-16.5); Lymphocyte # 2.45 X10^3/ul (4.0); Lymphocyte % 31.2 % (19-41); Mean Corp Hgb Conc 33.1 g/dL (32-36); Mean Corpuscular Hgb 31.7 pg (27.0-32.0); Mean Corpuscular Volume 95.8 fL (80-94); Mean Platelet Vol. 9.9 fl (6.2-12.0); Monocyte# 0.55 X10^3/uL; NRBC Flagged by Analyzer 0 % (0-5); Neutrophil # 4.65 X10^3/uL (2.7-7.7); Neutrophil % 59.1 % (47-70); Platelet Count 264 K/mm3 (150-450); RBC Distribution Width CV 12.1 % (11.6-14.6); Red Blood Count 5.23 M/mm3 (4.6-6.2); White Blood Count 7.9 K/mm3 (4.4-11.0)
[2020-01-15] MEDS: 0.9% Normal Saline 1,000 ML 1000 ML IV (21:46)
[2020-01-15] MEDS: Ondansetron 4 MG/2 ML Vial IV (21:46)
[2020-01-15] MEDS: Ketorolac 15 MG/ML Vial IV (21:46)
[2020-01-15] MEDS: Mag Hydrox/Al Hydrox/Simeth 30 ML UDC PO (21:46)
[2020-01-15 21:49] LABS: AST(SGOT) 22 U/L (15-37); Alanine Aminotransfer ALT/SGPT 34 U/L (16-61); Albumin, Serum 3.7 g/dL (3.2-5.0); Alkaline Phosphatase 76 U/L (45-117); Anion Gap 8 (5-15); BUN 19 mg/dL (7-18); BUN/Creat Ratio 13.7 RATIO (10-20); Calcium,Total 9.4 mg/dL (8.5-10.1); Chloride 100 mmol/L (98-107); Creatinine, Serum 1.39 mg/dL (0.70-1.30); EST Glomerular Filtration Rate 55 mL/min (>60); Est Glom Filt Rate - Afr Amer 67 mL/min (>60); Estimated Creatinine Clearance 60.94 ml/min; Globulin 3.8 g/dL (2.2-4.2); Glucose 296 mg/dL (74-106); Lipase 146 U/L (73-393); Potassium 4.1 mmol/L (3.5-5.1); Protein, Total 7.5 g/dL (6.4-8.2); Sodium Level 135 mmol/L (136-145)
--- NOTE | 2020-01-15 22:33 | RAD_ITS ---
STUDY: X-RAY CHEST REASON FOR EXAM: Male, 59 years old. MID EPIGASTRIC PAIN; PRIOR HX OF PANCREATITIS TECHNIQUE: Single AP portable view of the chest. COMPARISON: 04/12/2019. FINDINGS: The lungs are clear and expanded. There is no demonstrated pleural abnormality. Normal size heart. Sternotomy wires are present. Normal mediastinum and radha. Normal visualized pulmonary arteries. Normal visualized aortic arch and descending thoracic aorta. Normal visualized thoracic spine. Normal visualized ribs, clavicles, and shoulders. There is no demonstrated abnormality of the visualized soft tissue structures of the upper abdomen. RAD/Chest 1 View (Portable) IMPRESSION: Normal x-ray examination of the chest. Electronically Signed: Sybil Samayoa MD at 22:59 EDT Tel , Service support ,
[2020-01-15 22:54] VITALS: BP 90/54; PULSE 62; RESP 18
[2020-01-15 23:09] LABS: Bacteria 0 SEEN /hpf (None Seen); Mucous, Urine 0 SEEN /hpf (<or=2+); Squamous Epithelial Cells - UA 0 SEEN /hpf (0-5)
[2020-01-15 23:21] LABS: Color, Urine Yellow (Yellow); Glucose, Dipstick 1000 mg/dl (Normal); Ketone-Dipstick Negative (Negative); Leukocyte Esterase-Dipstick 500 /ul (Negative); Nitrite-Dipstick Negative (Negative); Occult Blood-Urine 50 /ul (Negative); Protein-Dipstick 30 mg/dl (Negative); Specific Gravity, Urine 1.015 (1.002-1.030); Urine Bilirubin Dipstick Negative (Negative); Urine Clarity Clear (Clear); Urine Urobilinogen Normal (Normal)
[2020-01-15 23:35] LABS: Red Blood Cells-Urine 10-25 SEEN /hpf (0-5); White Blood Cells 25-50 SEEN /hpf (0-5)
--- NOTE | 2020-01-15 23:57 | ED.RN ---
VERBAL PERMISSION FROM PATIENT TO SPEAK OVER THE PHONE TO HIS RANDY. RANDY GIVEN PATIENT UPDATE BY THIS RN AND INFORMED WE ARE WAITING FRO THE PHYSICIAN TO GO OVER RESULTS WITH PATIENT
[2020-01-16] MEDS: Smz/Tmp Ds Tablet 1 TABLET PO (00:35)
[2020-01-16 00:38] VITALS: BP 91/56; PULSE 59; RESP 16
[2020-01-16 01:00] VITALS: RESP 16
== END 2020-01-16 01:06 | disposition home or self-care (01) ==
PROVIDERS: Emergency Provider Emergency Medicine; PCP Family Medicine
DX: J06.9 Acute upper respiratory infection, unspecified (principal); N39.0 Urinary tract infection, site not specified; R10.84 Generalized abdominal pain; E66.9 Obesity, unspecified; I10 Essential (primary) hypertension; E78.5 Hyperlipidemia, unspecified; E11.9 Type 2 diabetes mellitus without complications; I25.10 Atherosclerotic heart disease of native coronary artery without angina pectoris; Z87.19 Personal history of other diseases of the digestive system; Z95.1 Presence of aortocoronary bypass graft; Z79.4 Long term (current) use of insulin; Z79.82 Long term (current) use of aspirin; Z79.02 Long term (current) use of antithrombotics/antiplatelets; Z79.899 Other long term (current) drug therapy; F17.200 Nicotine dependence, unspecified, uncomplicated
CPT/HCPCS: 71045; 74177; 80053; 81001; 83690; 85025; 87086; 87088; 87186; 87635; 96361; 96374; 96375; 99281; Q9967; A4216; J2405; U0003

== ENCOUNTER 2020-01-22 18:48 | Emergency (ER) | payer OTHER, SELFPAY ==
[2020-01-22 18:49] VITALS: BP 144/85; PULSE 76; RESP 16; TEMP 37.1; O2SAT 100; BMI 27.8
--- NOTE | 2020-01-22 19:14 | ED.VIS.GEN ---
History of Present Illness Chief Complaint: Cough Narrative: Patient is a 59-year-old male who presents with shortness of breath and cough. History is limited, the patient is a poor informant. Initially when asked what his presenting symptoms were he states I was here on Thursday same problems as then. He then stated he was here for shortness of breath and cough that just began yesterday. He states that on Thursday he was having some congestion and runny nose and a little bit of cough. He states that nothing was done in the emergency department and he was just sent home on antibiotics. On review of records it appears he presented with flank pain. He actually had extensive work-up including laboratory studies CT imaging urinalysis COVID-19 testing. He was started on antibiotics which she is still currently on. He denies any fevers nausea vomiting or diarrhea at this time. Past Medical History - Allergies and Home Meds Allergies/Adverse Reactions: Allergies amoxicillin Allergy (Verified 01/22/20 18:52) Angioedema lindane Allergy (Verified 01/22/20 18:52) Rash Primary Care Physician: Ant Nuñez DO [Primary Care Provider] - Past Medical History: - - Diabetes, hypertension, hyperlipidemia, coronary disease Surgical History: coronary bypass surgery, herniorrhaphy Smoking Status: Current every day smoker - Family History Maternal Family History: Family History (Last Reviewed 01/10/20 @ 14:[address] Calos Quinn MD) Father Asthma Alcoholism Arthritis Heart disease Hypertension High cholesterol CVA (cerebral vascular accident) Lung cancer Grandfather Myocardial infarction Family History: Reports: No pertinent history Paternal Family History: Family History (Last Reviewed 01/10/20 @ 14:[address] Calos Quinn MD) Father Asthma Alcoholism Arthritis Heart disease Hypertension High cholesterol CVA (cerebral vascular accident) Lung cancer Grandfather Myocardial infarction Family History: Reports: Asthma, Cancer, Heart Disease, Hypertension, Stroke Review of Systems All systems negative except as indicated General: Denies: Fever ENT: Reports: - - Congestion, rhinorrhea Cardiovascular: Denies: Chest pain Respiratory: Reports: Dyspnea, Cough. Denies: Sputum Gastrointestinal: Denies: Abdominal pain, Nausea, Vomiting, Diarrhea Musculoskeletal: Denies: Myalgias, Arthralgias Skin: Denies: Rash Neurological: Denies: Headache Hematologic: Denies: Easy bruising Allergy: Denies: Uticaria Physical Exam Vital Signs/Narrative: Vital Signs Temp Pulse Resp BP Pulse Ox 01/22/20 18:49 98.7 F 76 16 144/85 H 100 Inital Vital Signs reviewed: Yes General: Well nourished, Well developed Head: Normocephalic Eyes: EOMI ENT: Moist mucous membranes Neck: Supple Cardiovascular: Regular rate, Regular rhythm Respiratory: Decreased Air Movement, - - No rales, rhonchi, wheezes, no respiratory distress able speak in full sentences no increased work of breathing Abdomen: Soft, Nontender Skin: Normal color Neurological: Alert Psychological: Normal affect Diagnostic/Tx/Re-eval Impressions Chest X-Ray 01/22/20 19:37 IMPRESSION: No acute cardiopulmonary abnormality. at 1945 Reported and signed by: Raven Monique MD Electronically Signed: Raven Monique MD at 19:45 EDT Tel , Service support , 01/22/20 19:37 Chest PA and Lateral [RAD] Stat Laboratory Results 01/22/20 01/22/20 19:20 19:20 WBC 7.8 RBC 5.14 Hgb 16.9 H Hct 49.5 MCV 96.3 H MCH 32.9 H MCHC 34.1 RDW Std Deviation 43.2 RDW Coeff of Maycol 12.1 Plt Count 248 MPV 9.9 Immature Gran % (Auto) 0.300 Neut % (Auto) 58.0 Lymph % (Auto) 27.7 [place] % (Auto) 9.9 Eos % (Auto) 3.7 Baso % (Auto) 0.4 Absolute Neuts (auto) 4.5 Absolute Lymphs (auto) 2.15 Nucleated RBC % 0 Sodium 133 L Potassium 4.5 Chloride 104 Carbon Dioxide 23.0 Anion Gap 6 BUN 19 H Creatinine 1.17 Estim Creat Clear Calc 72.40 Est GFR (MDRD) Af Amer 82 Est GFR (MDRD) Non-Af 68 BUN/Creatinine Ratio 16.2 Glucose 248 H Calcium 8.6 - Medical Decision Making Serum laboratory studies and x-ray imaging as above are unremarkable. Patient is clinically well-appearing with normal vital signs. Given his decreased air exchange smoking history he may have a component of undiagnosed COPD. We will treat with a prednisone burst. Patient discharged. ED Disposition - Plan for ED Patient: Disposition: Home or Assisted Living Diagnosis: Bronchitis Instructions: ED COPD Flare Prescriptions: predniSONE tablet 60 mg PO DAILY #15 tab Prescription Printed Referrals: Ant Nuñez DO [Primary Care Provider] -
[2020-01-22 19:27] LABS: Absolute Lymphocyte Count 2.15 X10^3/uL (0.83-4.51); Absolute Neutrophil Count 4.5 X10^3/uL (2.0-7.7); Basophil# 0.03 X10^3/uL; Basophil% 0.4 % (0-1); Eosinophil# 0.29 X10^3/uL; Eosinophils% 3.7 % (0-5); Hematocrit 49.5 % (40-54); Hemoglobin 16.9 g/dL (13.0-16.5); Lymphocyte # 2.15 X10^3/ul (4.0); Lymphocyte % 27.7 % (19-41); Mean Corp Hgb Conc 34.1 g/dL (32-36); Mean Corpuscular Hgb 32.9 pg (27.0-32.0); Mean Corpuscular Volume 96.3 fL (80-94); Mean Platelet Vol. 9.9 fl (6.2-12.0); Monocyte# 0.77 X10^3/uL; Monocyte% 9.9 % (0-10); NRBC Flagged by Analyzer 0 % (0-5); Neutrophil # 4.49 X10^3/uL (2.7-7.7); Platelet Count 248 K/mm3 (150-450); RBC Distribution Width CV 12.1 % (11.6-14.6); RBC Distribution Width SD 43.2 fl (35.1-43.9); Red Blood Count 5.14 M/mm3 (4.6-6.2); White Blood Count 7.8 K/mm3 (4.4-11.0)
--- NOTE | 2020-01-22 19:37 | RAD_ITS ---
HISTORY: MOIST COUGH, SOB, CONGESTION, RUNNY NOSE X5 DAYSHX COPD, CABG ADDITIONAL HISTORY: None provided. COMPARISON: 01/15/2020 EXAMINATION/TECHNIQUE: XR Chest 2 Views Number of images including paperwork: 2 FINDINGS: LUNGS AND PLEURA: No consolidation, mass or pleural effusion. CARDIAC SILHOUETTE: Stable. CABG changes. MEDIASTINUM AND [place]: Unremarkable. UPPER ABDOMEN: Unremarkable. SKELETON AND SOFT TISSUES: No acute findings. Degenerative changes. OTHER DEVICES AND HARDWARE: None. RAD/Chest PA and Lateral IMPRESSION: No acute cardiopulmonary abnormality. at 1945 Reported and signed by: Raven Monique MD Electronically Signed: Raven Monique MD at 19:45 EDT Tel , Service support ,
[2020-01-22 19:41] LABS: Anion Gap 6 (5-15); BUN 19 mg/dL (7-18); BUN/Creat Ratio 16.2 RATIO (10-20); Calcium,Total 8.6 mg/dL (8.5-10.1); Chloride 104 mmol/L (98-107); Creatinine, Serum 1.17 mg/dL (0.70-1.30); EST Glomerular Filtration Rate 68 mL/min (>60); Est Glom Filt Rate - Afr Amer 82 mL/min (>60); Glucose 248 mg/dL (74-106); Potassium 4.5 mmol/L (3.5-5.1); Sodium Level 133 mmol/L (136-145)
[2020-01-22 20:35] VITALS: RESP 18
== END 2020-01-22 20:37 | disposition home or self-care (01) ==
PROVIDERS: Emergency Provider Emergency Medicine; PCP Family Medicine
DX: J40 Bronchitis, not specified as acute or chronic (principal); I10 Essential (primary) hypertension; E11.9 Type 2 diabetes mellitus without complications; E78.5 Hyperlipidemia, unspecified; I25.10 Atherosclerotic heart disease of native coronary artery without angina pectoris; Z95.1 Presence of aortocoronary bypass graft; Z79.4 Long term (current) use of insulin; Z79.82 Long term (current) use of aspirin; Z79.899 Other long term (current) drug therapy; F17.200 Nicotine dependence, unspecified, uncomplicated
CPT/HCPCS: 71046; 80048; 85025; 99282

== ENCOUNTER 2020-02-14 17:06 | Emergency (ER) | payer OTHER, SELFPAY ==
[2020-02-08 13:52] VITALS: BMI 28.1
[2020-02-14 17:07] VITALS: BP 139/86; PULSE 102; RESP 16; TEMP 36.3; O2SAT 98; BMI 27.8
--- NOTE | 2020-02-14 17:08 | RAD_ITS ---
STUDY: X-RAY CHEST REASON FOR EXAM: Male, 60 years old. SOB WITH PRODUCTIVE COUGH SINCE YESTERDAY TECHNIQUE: AP portable COMPARISON: 01/22/2020 FINDINGS: There is mild interstitial thickening within the mid and lower lung zones. No focal infiltration.. There is no demonstrated pleural abnormality. Postop change status post median sternotomy and CABG. Normal size heart. Normal mediastinum and radha. Normal visualized pulmonary arteries. Mildly calcified aortic arch and descending thoracic aorta. Dorsal spine and shoulders demonstrate degenerative change. Normal visualized ribs, and clavicles There is no demonstrated abnormality of the visualized soft tissue structures of the upper abdomen. No significant change since prior study RAD/Chest 1 View (Portable) IMPRESSION: No acute cardiopulmonary pathology Electronically Signed: Gab Martinez MD at 18:36 EST , Service support ,
--- NOTE | 2020-02-14 18:33 | CT_ITS ---
STUDY: CT SOFT TISSUE NECK WITH CONTRAST REASON FOR EXAM: Male, 60 years old. RT NECK SWELLING,SOB AND COUGH SINCE YESTERDAY -- HX:HTN,DIABETES,COPD,CABG RADIATION DOSAGE (If Supplied By Facility): CTDIvol = ( 16.32 ) mGy, DLP = ( 517.83 ) mGycm TECHNIQUE: The patient was scanned in a multi-detector CT scanner. High resolution transaxial imaging was performed following intravenous administration of IV 75mL Isovue-370. Sagittal and coronal images were reconstructed. Individualized dose optimization techniques were used for this CT. COMPARISON: None. FINDINGS: Normal bilateral parotid glands. Normal bilateral cushion padder spaces. Normal bilateral parapharyngeal spaces. Normal bilateral carotid spaces. Normal bilateral sublingual and submandibular glands and spaces. Normal visualized nasopharynx. Normal retropharyngeal space. Normal perivertebral space. Normal visualized bilateral faucial tonsils. The visualized tongue, tongue base and oropharynx are normal. The visualized cervical lymph nodes (levels I-) are within normal size limits, and maintain normal morphology. There is no demonstrated solid or cystic mass lesion. There is no abnormal contrast enhancement. Normal epiglottis, bilateral vallecula and hypopharynx. The pre-epiglottic and paraglottic adipose spaces are normal. Normal visualized bilateral piriform sinuses, aryepiglottic folds, vocal cords, and arytenoid-cricoid articulations. Normal subglottic trachea. Multinodular retrosternal goiter is noted.. Normal visualized pulmonary apices. Normal visualized paranasal sinuses. Cervical spine demonstrates moderate spondylosis CT/Soft Tissue Neck WITH Contrast IMPRESSION: No well-defined mass in the right neck or evidence for lymphadenopathy. 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 Electronically Signed: Gab Martinez MD at 20:26 EST , Service support ,
--- NOTE | 2020-02-14 18:33 | EKG12_ITS ---
Test Reason : DYSRHYTHMIA Blood Pressure : / mmHG Vent. Rate : 083 BPM Atrial Rate : 083 BPM P-R Int : 132 ms QRS Dur : 084 ms QT Int : 364 ms P-R-T Axes : 048 028 080 degrees QTc Int : 427 ms Normal sinus rhythm Normal ECG Confirmed by HUGH WESTBROOK, MEG ([id number]), film or videotape editor INGA MARIN ([id number]) on 02/20/2020 1:02:19 PM Referred By: CL Confirmed By:EDWARDO REESE MD
--- NOTE | 2020-02-14 18:34 | ED.VIS.GEN ---
History of Present Illness Chief Complaint: Shortness of Breath Informant: Patient Narrative: 60-year-old male with past medical history of hypertension, coronary artery disease, COPD presents with concern for shortness of breath. States is been present since yesterday. States he has pain with swallowing on the right side of his neck. [place] like there was some swelling in this area. Does admit to a cough. Denies any fever, chills, nausea, vomiting, chest pain. Heavy former smoker. Past Medical History - Allergies and Home Meds Allergies/Adverse Reactions: Allergies amoxicillin Allergy (Verified 02/14/20 17:07) Angioedema lindane Allergy (Verified 02/14/20 17:07) Rash Primary Care Physician: Ant Nuñez DO [Primary Care Provider] - Prior records reviewed: Yes Past Medical History: - - HTN and CAD Surgical History: coronary bypass surgery, herniorrhaphy Smoking Status: Current every day smoker - Family History Maternal Family History: Family History (Last Reviewed 02/08/20 @ 14:[address] Ant Nuñez DO) Father Asthma Alcoholism Arthritis Heart disease Hypertension High cholesterol CVA (cerebral vascular accident) Lung cancer Grandfather Myocardial infarction Family History: Reports: No pertinent history Paternal Family History: Family History (Last Reviewed 02/08/20 @ 14:[address] Ant Nuñez DO) Father Asthma Alcoholism Arthritis Heart disease Hypertension High cholesterol CVA (cerebral vascular accident) Lung cancer Grandfather Myocardial infarction Family History: Reports: Asthma, Cancer, Heart Disease, Hypertension, Stroke Review of Systems General: Denies: Chills, Fever, Sweats Eyes: Denies: Visual changes - bilaterally, Diplopia ENT: Reports: Sore throat. Denies: Rhinorrhea Cardiovascular: Denies: Chest pain, Palpitations Respiratory: Reports: Dyspnea, Cough. Denies: Dyspnea on exertion Gastrointestinal: Denies: Abdominal pain, Nausea, Vomiting, Diarrhea, Melena, Hematochezia Genitourinary: Denies: Dysuria, Hematuria, Frequency Musculoskeletal: Denies: Back pain, Extremity Pain Skin: Denies: Rash, Wounds Neurological: Denies: Headache, Weakness, Numbness Physical Exam Vital Signs/Narrative: Vital Signs Temp Pulse Resp BP Pulse Ox 02/14/20 17:07 97.4 F L 102 H 16 139/86 H 98 General: Well nourished, Well developed, No Acute Distress Head: Normocephalic, Atraumatic Eyes: Perrl, EOMI ENT: Moist mucous membranes, No rhinorrhea Neck: Supple, Nontender Cardiovascular: Regular rate, Regular rhythm, No murmurs Respiratory: No distress, CTA bilaterally, Chest nontender Abdomen: Soft, Nontender, Nondistended, Normal bowel sounds Back: Nontender, Normal Inspection Extremities: Nontender, No edema Skin: Normal color, No rash Neurological: Alert, Oriented x3, Cranial nerves II-XII grossly intact, Normal Strength, Normal Sensation Psychological: Normal affect, Normal Mood Diagnostic/Tx/Re-eval Chest X-Ray - ED: 1 View, Read by ED Physician, Normal Clinical Impression(s) from Imaging Studies Chest X-Ray 02/14/20 17:08 IMPRESSION: No acute cardiopulmonary pathology Electronically Signed: Gab Martinez MD at 18:36 EST , Service support , Soft Tissue Neck CT 02/14/20 18:33 IMPRESSION: No well-defined mass in the right neck or evidence for lymphadenopathy. 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 Electronically Signed: Gab Martinez MD at 20:26 EST , Service support , Laboratory Data 02/14/20 02/14/20 18:50 18:50 WBC 6.6 RBC 5.18 Hgb 16.8 H Hct 49.4 MCV 95.4 H MCH 32.4 H MCHC 34.0 RDW Std Deviation 42.6 RDW Coeff of Maycol 12.1 Plt Count 249 MPV 10.0 Immature Gran % (Auto) 0.300 Neut % (Auto) 57.9 Lymph % (Auto) 32.5 [place] % (Auto) 5.5 Eos % (Auto) 3.5 Baso % (Auto) 0.3 Absolute Neuts (auto) 3.8 Absolute Lymphs (auto) 2.13 Nucleated RBC % 0 Sodium 132 L Potassium 4.3 Chloride 98 Carbon Dioxide 28.0 Anion Gap 6 BUN 18 Creatinine 1.07 Estim Creat Clear Calc 78.19 Est GFR (MDRD) Af Amer 91 Est GFR (MDRD) Non-Af 75 BUN/Creatinine Ratio 16.8 Glucose 321 H Calcium 9.3 Troponin I < 0.015 - Rhythm Strip Rhythm Strip: Sinus Rhythm Rate: 83 Ectopy: None - EKG Initial EKG Interpretation: Sinus Rhythm - Sinus rhythm at 83 bpm. MD interval 132 ms. QTC of 427 ms. No acute ischemia. - Medical Decision Making Appears well and nontoxic. No hypoxemia. Lab work within normal limits other than elevated glucose. Chest x-ray negative. EKG and troponin negative. Patient has symptoms of URI will be tested as an outpatient for coronavirus. Patient also has COPD and will be given short course of prednisone as well as albuterol inhaler. Asked to return for new or worsening symptoms. Patient agreeable and discharged home in stable condition. Impression: 1. COPD Exacerbation 2. Possible COVID 19 pnuemonitis ED Disposition - Plan for ED Patient: Disposition: Home or Assisted Living Instructions: ED COPD Flare Prescriptions: Prednisone [Deltasone] 40 mg PO DAILY #10 tab Prescription Printed Albuterol Inhaler [Ventolin Hfa] 1 - 2 puff INHALATION Q4H PRN PRN #1 inhaler PRN Reason: Wheezing Prescription Printed Referrals: Ant Nuñez DO [Primary Care Provider] - 2 Days
[2020-02-14 18:41] VITALS: RESP 16; O2SAT 97
--- NOTE | 2020-02-14 18:49 | ED.RN ---
patient unable to recall medicines
[2020-02-14 19:15] LABS: Absolute Lymphocyte Count 2.13 X10^3/uL (0.83-4.51); Absolute Neutrophil Count 3.8 X10^3/uL (2.0-7.7); Basophil# 0.02 X10^3/uL; Basophil% 0.3 % (0-1); Eosinophil# 0.23 X10^3/uL; Eosinophils% 3.5 % (0-5); Hematocrit 49.4 % (40-54); Hemoglobin 16.8 g/dL (13.0-16.5); Lymphocyte # 2.13 X10^3/ul (4.0); Lymphocyte % 32.5 % (19-41); Mean Corpuscular Hgb 32.4 pg (27.0-32.0); Mean Corpuscular Volume 95.4 fL (80-94); Monocyte# 0.36 X10^3/uL; Monocyte% 5.5 % (0-10); NRBC Flagged by Analyzer 0 % (0-5); Neutrophil % 57.9 % (47-70); Platelet Count 249 K/mm3 (150-450); RBC Distribution Width CV 12.1 % (11.6-14.6); RBC Distribution Width SD 42.6 fl (35.1-43.9); Red Blood Count 5.18 M/mm3 (4.6-6.2); White Blood Count 6.6 K/mm3 (4.4-11.0)
[2020-02-14 19:45] LABS: Anion Gap 6 (5-15); BUN 18 mg/dL (7-18); BUN/Creat Ratio 16.8 RATIO (10-20); Calcium,Total 9.3 mg/dL (8.5-10.1); Chloride 98 mmol/L (98-107); Creatinine, Serum 1.07 mg/dL (0.70-1.30); EST Glomerular Filtration Rate 75 mL/min (>60); Est Glom Filt Rate - Afr Amer 91 mL/min (>60); Estimated Creatinine Clearance 78.19 ml/min; Glucose 321 mg/dL (74-106); Potassium 4.3 mmol/L (3.5-5.1); Sodium Level 132 mmol/L (136-145)
[2020-02-14 19:59] VITALS: BP 132/79; PULSE 81; RESP 16; O2SAT 95
[2020-02-14] MEDS: predniSONE 20 MG Tablet 60 MG PO (21:49)
[2020-02-14 21:59] VITALS: BP 129/74; PULSE 71; RESP 18; O2SAT 97
== END 2020-02-14 22:05 | disposition home or self-care (01) ==
PROVIDERS: Emergency Provider Emergency Medicine; PCP Family Medicine
DX: J44.1 Chronic obstructive pulmonary disease with (acute) exacerbation (principal); I10 Essential (primary) hypertension; I25.10 Atherosclerotic heart disease of native coronary artery without angina pectoris; Z95.1 Presence of aortocoronary bypass graft; Z79.82 Long term (current) use of aspirin; Z79.899 Other long term (current) drug therapy; F17.200 Nicotine dependence, unspecified, uncomplicated
CPT/HCPCS: 70491; 71045; 80048; 84484; 85025; 87635; 93005; 94760; 99285; Q9967; A4216; U0003

== ENCOUNTER 2020-07-05 08:39 | Emergency (ER) | payer MEDICAID, SELFPAY ==
[2020-06-05 16:22] VITALS: BMI 28.1
[2020-07-05 08:41] VITALS: BP 160/86; PULSE 77; RESP 15; TEMP 36.2; O2SAT 97; BMI 26.9
--- NOTE | 2020-07-05 09:15 | RAD_ITS ---
STUDY: X-RAY CHEST REASON FOR EXAM: Male, 60 years old. Upper back pain, eval mediastinum TECHNIQUE: Single AP portable view of the chest. COMPARISON: Comparison is made with prior study dated 02/14/2020. FINDINGS: The lungs are clear and expanded. There is no demonstrated pleural abnormality. Sternal cerclage wires and vascular clips are present from a prior sternotomy and coronary artery bypass graft procedure (CABG). Normal mediastinum and radha. Normal visualized pulmonary arteries. Normal visualized aortic arch and descending thoracic aorta. Normal visualized thoracic spine. Normal visualized ribs, clavicles, and shoulders. There is no demonstrated abnormality of the visualized soft tissue structures of the upper abdomen. RAD/Chest 1 View (Portable) IMPRESSION: No acute abnormality is seen. Electronically Signed: Sam Duncan MD at 10:00 EDT , Service support ,
--- NOTE | 2020-07-05 09:20 | ED.VIS.GEN ---
History of Present Illness Chief Complaint: Back Informant: Patient Narrative: Patient is a 60-year-old male who presents to the emergency department for upper back pain as well as leg cramping. His back pain has been present over the past week. It comes randomly and goes randomly. He does take Tylenol arthritis which gives him relief for 2 hours but the pain comes back. Touching the back aggravates his symptoms. Moving his left shoulder seems to make it worse at x2. He denies any chest pain or shortness of breath associated with this. He denies any injury or inciting event a week ago. He currently rates his pain as a 9 out of 10. Did not take anything for symptoms this morning. Yesterday he had an hour episode of what he describes as charley horses in his bilateral calves. This resolved and has not returned. Is never had this before. He denies any leg swelling. No recent periods of prolonged immobilization. No history of DVT/PE. He denies any abdominal pain or nausea/vomiting. No pain in his extremities. No headache or neck stiffness. Past Medical History - Allergies and Home Meds Allergies/Adverse Reactions: Allergies amoxicillin Allergy (Verified 07/05/20 08:43) Angioedema lindane Allergy (Verified 07/05/20 08:43) Rash Primary Care Physician: Ant Nuñez DO [Primary Care Provider] - As soon as possible Prior records reviewed: Yes Surgical History: coronary bypass surgery, herniorrhaphy Smoking Status: Current every day smoker - Family History Maternal Family History: Family History (Last Reviewed 06/06/20 @ 08:[address] Ant Nuñez DO) Father Asthma Alcoholism Arthritis Heart disease Hypertension High cholesterol CVA (cerebral vascular accident) Lung cancer Grandfather Myocardial infarction Family History: Reports: No pertinent history Paternal Family History: Family History (Last Reviewed 06/06/20 @ 08:[address] Ant Nuñez DO) Father Asthma Alcoholism Arthritis Heart disease Hypertension High cholesterol CVA (cerebral vascular accident) Lung cancer Grandfather Myocardial infarction Family History: Reports: Asthma, Cancer, Heart Disease, Hypertension, Stroke Review of Systems All systems negative except as indicated General: Denies: Chills, Fever, Sweats Eyes: Denies: Visual changes - bilaterally, Diplopia ENT: Denies: Rhinorrhea, Sore throat Cardiovascular: Denies: Chest pain, Palpitations Respiratory: Denies: Dyspnea, Cough, Dyspnea on exertion Gastrointestinal: Denies: Abdominal pain, Nausea, Vomiting, Diarrhea Genitourinary: Denies: Dysuria, Hematuria, Frequency Musculoskeletal: Reports: Back pain. Denies: Swelling, Extremity Pain Skin: Denies: Rash, Wounds Neurological: Denies: Headache, Weakness, Numbness Physical Exam Vital Signs/Narrative: Vital Signs Temp Pulse Resp BP Pulse Ox 07/05/20 08:41 97.1 F L 77 15 160/86 H 97 Inital Vital Signs reviewed: Yes General: Well nourished, Well developed, No Acute Distress Head: Normocephalic, Atraumatic Eyes: Perrl, EOMI ENT: Moist mucous membranes, No rhinorrhea Neck: Supple, Nontender Cardiovascular: Regular rate, Regular rhythm, No murmurs Respiratory: No distress, CTA bilaterally, Chest nontender Abdomen: Soft, Nontender, Nondistended Back: Normal Inspection, - - Patient has tenderness to light palpation and deep palpation over the left scapula and left paraspinal musculature. He does have mild pain on the right side.. Negative for: Spinal tenderness Extremities: Nontender, - - 2+ radial pulse bilateral. Negative for: Edema, Calf Tenderness Skin: Normal color, No rash Neurological: Alert, Oriented x3, Normal Strength, Normal Sensation Psychological: Normal affect, Normal Mood Diagnostic/Tx/Re-eval Chest X-Ray - ED: 1 View - Single view portable x-ray interpreted by myself. Clear lung cardenas bilaterally. Normal cardiac silhouette. Normal mediastinum. No pleural effusions. Sternotomy wires present. No acute cardiopulmonary process. - Medical Decision Making Patient presents to the ED for nontraumatic upper back pain. On exam it is reproducible with palpation. He is mildly hypertensive but otherwise in no acute distress. He is resting comfortably on the bed. His calf pain has since resolved. I have very low concern for DVT/PE. I have very low concern for ACS, PE, aortic catastrophe given his presentation and physical findings with reproducible pain with palpation. Also hurts worse with moving. Believe is most likely musculoskeletal. Patient is nervous and I told him we would do a work-up including checking his electrolytes, blood counts and troponin. We will do an chest x-ray. He is given her Naprosyn for symptomatic relief. Patient's work-up showed him to be hyperglycemic which she states is normal for him. He is also hyponatremic which seems to be a little bit lower than his baseline. This can be related to his hyperglycemia. Otherwise his troponin is negative. He is not anemic. I believe his symptoms are muscular. He can continue to take his Tylenol at home which has been helping. We will also write a prescription for lidocaine patches. He is going to follow-up with his PCP. He develops any significant chest pain or shortness of breath he needs to return to the emergency department for further work-up. He understands and is agreeable with plan. Discharged home in stable condition. All questions were answered. ED Disposition - Plan for ED Patient: Disposition: Home or Assisted Living Diagnosis: Back pain, Hyperglycemia, Hyponatremia Instructions: ED Back Pain (Acute or Chronic), ED Diabetic Hyperglycemia Prescriptions: Lidocaine [Lidoderm Patch] 1 patch TOPICAL DAILY 3 Days #3 patch Transmission Status: Received by [facility]/pharmacy #[id number] Referrals: Ant Nuñez, DO [Primary Care Provider] - As soon as possible
[2020-07-05] MEDS: Naproxen 500 MG Tablet PO (09:40)
[2020-07-05 09:51] LABS: Absolute Neutrophil Count 3.3 X10^3/uL (2.0-7.7); Basophil# 0.02 X10^3/uL; Basophil% 0.4 % (0-1); Eosinophil# 0.22 X10^3/uL; Eosinophils% 3.9 % (0-5); Hematocrit 50.5 % (40-54); Hemoglobin 17.4 g/dL (13.0-16.5); Lymphocyte % 28.2 % (19-41); Mean Corp Hgb Conc 34.5 g/dL (32-36); Mean Corpuscular Hgb 32.4 pg (27.0-32.0); Mean Platelet Vol. 10.5 fl (6.2-12.0); Monocyte# 0.49 X10^3/uL; Monocyte% 8.6 % (0-10); NRBC Flagged by Analyzer 0 % (0-5); Neutrophil # 3.34 X10^3/uL (2.7-7.7); Neutrophil % 58.7 % (47-70); Platelet Count 246 K/mm3 (150-450); RBC Distribution Width CV 12.3 % (11.6-14.6); RBC Distribution Width SD 42.6 fl (35.1-43.9); Red Blood Count 5.37 M/mm3 (4.6-6.2); White Blood Count 5.7 K/mm3 (4.4-11.0)
[2020-07-05 10:16] LABS: Anion Gap 4 (5-15); BUN 16 mg/dL (7-18); BUN/Creat Ratio 18.3 RATIO (10-20); Calcium,Total 8.8 mg/dL (8.5-10.1); Chloride 97 mmol/L (98-107); Creatinine, Serum 0.87 mg/dL (0.70-1.30); EST Glomerular Filtration Rate 95 mL/min (>60); Est Glom Filt Rate - Afr Amer 115 mL/min (>60); Estimated Creatinine Clearance 96.17 ml/min; Glucose 365 mg/dL (74-106); Potassium 4.2 mmol/L (3.5-5.1); Sodium Level 128 mmol/L (136-145)
== END 2020-07-05 10:33 | disposition home or self-care (01) ==
PROVIDERS: Emergency Provider Emergency Medicine; PCP Family Medicine
DX: E87.1 Hypo-osmolality and hyponatremia (principal); R73.9 Hyperglycemia, unspecified; M54.9 Dorsalgia, unspecified; F17.200 Nicotine dependence, unspecified, uncomplicated
CPT/HCPCS: 71045; 80048; 84484; 85025; 99281; 99283

== ENCOUNTER 2020-08-11 21:57 | Emergency (ER) | payer MEDICAID, SELFPAY ==
[2020-08-11 21:57] VITALS: BP 131/71; PULSE 89; RESP 15; TEMP 36.6; O2SAT 98; BMI 26.4
--- NOTE | 2020-08-11 22:24 | CT_ITS ---
HISTORY: Pain EXAMINATION: CT Abdomen And Pelvis W/O Contrast Injection TECHNIQUE: Multiple axial images were obtained of the abdomen and pelvis without oral or IV contrast. A radiation dose optimization technique was used for this scan. IV Contrast dosage and agent: None. Oral contrast: None. COMPARISON: 01/15/20 FINDINGS: LOWER CHEST: Bibasilar dependent changes. No cardiomegaly or pericardial effusion. LIVER: Homogeneous low attenuation consistent with steatosis. Enlarged to 20 cm. No gross focal mass. GALLBLADDER AND BILIARY TREE: No calcified gallstones. No gallbladder distension or wall edema. No intra- or extrahepatic biliary ductal dilation. PANCREAS: No focal cystic or solid mass. SPLEEN: Normal size without focal cystic or solid mass. ADRENAL GLANDS: No nodules. KIDNEYS AND URETERS: Bilateral nonobstructing renal calculi. No hydronephrosis bilaterally. PERITONEUM: No ascites or free air. BOWEL: Normal appendix. No stomach or bowel distension. No focal inflammatory bowel wall changes. LYMPH NODES: No enlarged mesenteric or retroperitoneal lymph nodes. VESSELS: Aorta is non-dilated. Stable aneurysmal dilatation right common iliac artery URINARY BLADDER: Unremarkable. REPRODUCTIVE ORGANS: No pelvic masses. ABDOMINAL WALL: Fat-containing left inguinal hernia. BONES: No acute or aggressive abnormality. CT/Abdomen/Pelvis without Cont IMPRESSION: No acute findings in the abdomen or pelvis. Diffuse hepatic steatosis with hepatic enlargement. Bilateral nonobstructing nephrolithiasis. No evidence of obstructive uropathy. Individualized dose optimization techniques were used for this CT. at 2341 Reported and signed by: Lee Ledbetter MD Electronically Signed: Lee Ledbetter MD at 23:40 EDT Tel , Service support ,
--- NOTE | 2020-08-11 22:25 | CT_ITS ---
HISTORY: Pain TECHNIQUE: Multiple axial images were obtained of the brain without intravenous contrast. A radiation dose optimization technique was used for this scan. IV Contrast dosage and agent: None. COMPARISON: 07/11/12 FINDINGS: # of images incl. paperwork: 258 PARANASAL SINUSES AND MASTOID AIR CELLS: Clear. INTRACRANIAL HEMORRHAGE: None. BRAIN PARENCHYMA: No CT evidence of stroke. No intracranial masses. There is preservation of the rodriguez/white matter interface. Posterior fossa structures are unremarkable. CSF SPACES: Appropriate for age. There is no hydrocephalus. MASS EFFECT: None. CALVARIUM: Intact. CT/Brain/Head without Contrast IMPRESSION: No acute intracranial findings. Individualized dose optimization techniques were used for this CT. at [id number] Reported and signed by: Lee Ledbetter MD Electronically Signed: Lee Ledbetter MD at 23:45 EDT Tel , Service support ,
[2020-08-11] MEDS: Metoclopramide 10 MG/2 ML Vial IV (22:39)
[2020-08-11] MEDS: DiphenhydrAMINE 50 MG/ML Syringe 25 MG IV (22:39)
[2020-08-11] MEDS: 0.9% Normal Saline 1,000 ML 1000 ML IV (22:39)
[2020-08-11 22:49] LABS: Absolute Lymphocyte Count 2.54 X10^3/uL (0.83-4.51); Absolute Neutrophil Count 5.1 X10^3/uL (2.0-7.7); Basophil# 0.02 X10^3/uL; Basophil% 0.2 % (0-1); Eosinophil# 0.16 X10^3/uL; Eosinophils% 1.9 % (0-5); Hematocrit 50.3 % (40-54); Hemoglobin 16.6 g/dL (13.0-16.5); Lymphocyte # 2.54 X10^3/ul (0.83-4.51); Lymphocyte % 30.1 % (19-41); Mean Corpuscular Hgb 31.7 pg (27.0-32.0); Mean Corpuscular Volume 96.2 fL (80-94); Monocyte# 0.62 X10^3/uL; Monocyte% 7.3 % (0-10); NRBC Flagged by Analyzer 0 % (0-5); Neutrophil # 5.09 X10^3/uL (2.7-7.7); Neutrophil % 60.3 % (47-70); Platelet Count 305 K/mm3 (150-450); RBC Distribution Width CV 12.2 % (11.6-14.6); RBC Distribution Width SD 43.6 fl (35.1-43.9); Red Blood Count 5.23 M/mm3 (4.6-6.2); White Blood Count 8.5 K/mm3 (4.4-11.0)
[2020-08-11 23:00] LABS: ALB/GLOB Ratio 0.8 RATIO (0.9-2.4); AST(SGOT) 23 U/L (15-37); Alanine Aminotransfer ALT/SGPT 37 U/L (16-61); Albumin, Serum 3.3 g/dL (3.2-5.0); Alkaline Phosphatase 88 U/L (45-117); Anion Gap 5 (5-15); BUN 31 mg/dL (7-18); BUN/Creat Ratio 27.7 RATIO (10-20); Calcium,Total 9.4 mg/dL (8.5-10.1); Chloride 101 mmol/L (98-107); Creatinine, Serum 1.12 mg/dL (0.70-1.30); EST Glomerular Filtration Rate 71 mL/min (>60); Est Glom Filt Rate - Afr Amer 86 mL/min (>60); Globulin 3.9 g/dL (2.2-4.2); Glucose 144 mg/dL (74-106); Lipase 120 U/L (73-393); Potassium 4.1 mmol/L (3.5-5.1); Protein, Total 7.2 g/dL (6.4-8.2); Sodium Level 136 mmol/L (136-145)
[2020-08-12 00:09] LABS: Bacteria 0 SEEN /hpf (None Seen); Mucous, Urine 0 SEEN /hpf (<or=2+); Red Blood Cells-Urine 0 SEEN /hpf (0-5); Squamous Epithelial Cells - UA 0 SEEN /hpf (0-5)
[2020-08-12 00:12] VITALS: BP 98/53; PULSE 68; RESP 14; O2SAT 97
[2020-08-12 00:12] LABS: Color, Urine Yellow (Yellow); Glucose, Dipstick 50 mg/dl (Normal); Ketone-Dipstick 5 mg/dl (Negative); Leukocyte Esterase-Dipstick 100 /ul (Negative); Nitrite-Dipstick Negative (Negative); Occult Blood-Urine Negative /ul (Negative); Protein-Dipstick 30 mg/dl (Negative); Specific Gravity, Urine 1.025 (1.002-1.030); Urine Bilirubin Dipstick Negative (Negative); Urine Clarity Clear (Clear); Urine Urobilinogen Normal (Normal)
[2020-08-12 00:35] LABS: White Blood Cells 5-10 SEEN /hpf (0-5)
[2020-08-12] MEDS: Smz/Tmp Ds Tablet 1 TABLET PO (00:57)
--- NOTE | 2020-08-12 01:01 | EDS_ITS ---
HPI HPI - GI History of Present Illness Chief Complaint: Flank Pain Informant: patient Abdominal Pain/Flank Pain Onset: Weeks (1) Context: Gradual Onset Timing: Continuous Quality: Stabbing Location: Right Flank Worsened by: - (Laying flat) Relieved by: - (Drinking water) Nausea/Vomiting/Emesis GI Symptom: Negative for Nausea and Vomiting Diarrhea/Melena/Hematochezia GI Symptom: Negative for Diarrhea, Melena and Hematochezia Associated Symptoms Associated Symptoms: Positive for Frequency; Negative for Dysuria and Hematuria Narrative Narrative: Patient presents with right flank pain that has been getting worse over the past week. Patient states that he also had a frontal headache that began tonight after taking his insulin. Patient states his flank pain radiates into his back. Patient denies any nausea or vomiting. Patient denies any dysuria or hematuria but admits to urinary frequency. Patient denies any fevers or chills. Patient denies any visual changes. Patient denies any sore throat or rhinorrhea. [facility] Medical History (Updated 08/12/20 @ 01:[address] Saúl Aguilar, ) Arthritis Asthma Atherosclerosis of coronary artery of habematolel heart without angina pectoris Emphysema lung Essential (primary) hypertension GERD (gastroesophageal reflux disease) History of non-ST elevation myocardial infarction (NSTEMI) (06/11/18) Hyperlipidemia Insulin dependent diabetes mellitus Nicotine dependence Pancreatitis Stenosis of right carotid artery Type 2 diabetes mellitus Home Medications aspirin 81 mg PO DAILY@0800 04/08/17 [History Last Taken 07/10/17] nitroglycerin 0.4 mg SUBLINGUAL Q5M PRN #10 tab 06/12/18 [Rx Last Taken Unknown] blood sugar diagnostic #50 ea 06/10/19 [Rx Last Taken Unknown] blood-glucose meter #1 ea 06/10/19 [Rx Last Taken Unknown] lancets 28 gauge #50 ea 06/10/19 [Rx Last Taken Unknown] atorvastatin 40 mg tablet 40 mg PO QHS #30 tab 06/27/19 [Rx Last Taken Unknown] alfuzosin 10 mg tablet,extended release 24 hr 10 mg PO DAILY 08/19/19 [History Last Taken Unknown] budesonide-formoterol HFA 160 mcg-4.5 mcg/actuation aerosol inhaler 2 puff INHALATION BID #10.2 g 01/24/20 [Rx Last Taken Unknown] famotidine 20 mg tablet 20 mg PO DAILY PRN #90 tab 01/31/20 [Rx Last Taken Unknown] albuterol sulfate 1 - 2 puff INHALATION Q4H PRN PRN #1 inhaler 02/14/20 [Rx Last Taken Unknown] isosorbide mononitrate 30 mg tablet,extended release 24 hr See Rx Instructions .ROUTE .COMPLEX #90 tab 06/06/20 [Rx Last Taken Unknown] albuterol sulfate 90 mcg/actuation aerosol inhaler 2 puff INHALATION Q4H PRN PRN #1 inhaler 07/10/20 [Rx Last Taken Unknown] buspirone 5 mg tablet 5 mg PO BID #180 tablet 07/10/20 [Rx Last Taken Unknown] fenofibrate micronized 134 mg capsule 134 mg PO DAILY #90 cap 07/10/20 [Rx Last Taken Unknown] insulin lispro protamine-lispro 100 unit/mL (50-50) subcutaneous pen 60 unit SC BID 90 Days #108 ml 07/10/20 [Rx Last Taken Unknown] losartan 25 mg tablet 25 mg PO DAILY #90 tablet 07/10/20 [Rx Last Taken Unknown] metformin 1,000 mg tablet 1,000 mg PO BID #180 tab 07/10/20 [Rx Last Taken Unknown] atenolol 50 mg tablet 50 mg PO DAILY #90 tab 07/23/20 [Rx Last Taken Unknown] clopidogrel 75 mg tablet 75 mg PO DAILY #90 tab 07/23/20 [Rx Last Taken Unknown] pen needle, diabetic 31 gauge x 3/16 #100 ea 08/06/20 [Rx Last Taken Unknown] ciprofloxacin HCl [Cipro] 500 mg PO BID #6 tab 08/12/20 [Rx Last Taken Unknown] Allergy/AdvReac Type Severity Reaction Status Date / Time amoxicillin Allergy Angioedema Verified 08/11/20 22:01 lindane Allergy Rash Verified 08/11/20 22:01 Family History Father Asthma Alcoholism Arthritis Heart disease Hypertension High cholesterol CVA (cerebral vascular accident) Lung cancer Grandfather Myocardial infarction Surgical History H/O coronary artery bypass surgery (2006) History of carotid endarterectomy (01/06/14) History of hernia repair History of left heart catheterization (06/11/18) Social History Smoking Status: Current every day smoker tobacco type: cigarettes Tobacco: How many years used: 45 Electronic Cigarette Use: not used second hand exposure: Yes quit status: considering quitting counseling given: provider counseling alcohol intake: never substance use type: does not use caffeine: Yes Type: coffee Number of servings: 5 what type of physical activity do you participate in: none ROS ROS ED Constitutional Constitutional ED: Denies chills or fever(s) ENT ENT ED: Denies rhinorrhea or sore throat Cardiovascular Cardiovascular: Denies chest pain or palpitations Respiratory/Chest Respiratory/Chest: Denies cough or dyspnea Gastrointestinal Gastrointestinal: Reports abdominal pain; Denies nausea or vomiting Genitourinary Genitourinary ED: Reports urinary frequency; Denies dysuria or hematuria Musculoskeletal Musculoskeletal: Reports back pain; Denies neck pain Integumentary Denies abscess or rash Neurologic Neurologic: Reports headache(s); Denies paresthesias or weakness Allergic/Immunologic Allergic/Immunologic ED: Denies mouth swelling or urticaria EXAM Physical Exam Const Vital Signs: 08/11/20 21:57 08/12/20 00:12 Temperature 97.8 F Temperature Source Temporal Pulse Rate 89 68 Respiratory Rate 15 14 Blood Pressure 131/71 H 98/53 L Blood Pressure Mean 91 68 Pulse Ox 98 97 Oxygen Delivery Method Room Air Room Air Positive well nourished and well developed General Appearance ED: well developed HEENT Reports moist mucous membranes normocephalic Neck supple and no JVD Resp normal respiratory effort and clear to auscultation bilaterally Cardio regular rate and regular rhythm GI non-tender and non-distended Auscultation: normoactive bowel sounds Palpation: soft Back/Spine General Back: CVA tenderness right Extremity full ROM General Extremety ED: Negative for tenderness Neuro CN's II-XII intact bilaterally, moves all extremities and no sensory deficits noted Sensorium / Orientation: alert, oriented to person, oriented to place and oriented to time Psych mental status grossly normal MDM MDM MDM Narrative Medical decision making narrative: Patient was given IV fluids, Reglan, and Benadryl. Patient states his headache improved with this. CT scan of the brain was obtained. There is no acute intracranial abnormality. This was interpreted by the radiologist and reviewed by myself. CT scan of the abdomen and pelvis was obtained. There is no acute intra-abdominal pathology noted. This was also interpreted by the radiologist and reviewed by myself. CBC and comprehensive metabolic profile were within normal limits. Urinalysis shows leukocyte esterase of 100 with 5-10 white blood cells. Urine culture was obtained. Patient was given a dose of Bactrim here. However, when the prescription was entered, there is a conflict with Bactrim and losartan. Therefore, the patient was given a prescription for a short course of Cipro. Patient was instructed to follow-up with his primary care physician in 5 to 7 days. Patient understood and was agreeable with the plan. All questions were answered. Lab Data Attestation: I reviewed the patient's lab results. Labs: Laboratory Results - last 24 hr 08/11/20 08/11/20 08/12/20 22:10 22:10 00:01 WBC 8.5 RBC 5.23 Hgb 16.6 H Hct 50.3 MCV 96.2 H MCH 31.7 MCHC 33.0 RDW Std Deviation 43.6 RDW Coeff of Maycol 12.2 Plt Count 305 MPV 10.0 Immature Gran % (Auto) 0.200 Neut % (Auto) 60.3 Lymph % (Auto) 30.1 [place]ack[place] % (Auto) 7.3 Eos % (Auto) 1.9 Baso % (Auto) 0.2 Absolute Neuts (auto) 5.1 Absolute Lymphs (auto) 2.54 Nucleated RBC % 0 Sodium 136 Potassium 4.1 Chloride 101 Carbon Dioxide 30.0 Anion Gap 5 BUN 31 H Creatinine 1.12 Estim Creat Clear Calc 74.70 Est GFR (MDRD) Af Amer 86 Est GFR (MDRD) Non-Af 71 BUN/Creatinine Ratio 27.7 H Glucose 144 H Calcium 9.4 Total Bilirubin 0.30 AST 23 ALT 37 Alkaline Phosphatase 88 Total Protein 7.2 Albumin 3.3 Globulin 3.9 Albumin/Globulin Ratio 0.8 L Lipase 120 Urine Color Yellow Urine Clarity Clear Urine pH 5.0 Ur Specific [place] 1.025 Urine Protein 30 H Urine Glucose (UA) 50 H Urine Ketones 5 H Urine Occult Blood Negative Urine Nitrite Negative Urine Bilirubin Negative Urine Urobilinogen Normal Ur Leukocyte Esterase 100 H Urine RBC 0 SEEN Urine WBC 5-10 SEEN Ur Squamous Epith Cells 0 SEEN Urine Bacteria 0 SEEN Urine Mucus 0 SEEN Radiography Diagnostic Testing: Radiology Impression Abdomen/Pelvis CT 08/11/20 22:24 IMPRESSION: No acute findings in the abdomen or pelvis. Diffuse hepatic steatosis with hepatic enlargement. Bilateral nonobstructing nephrolithiasis. No evidence of obstructive uropathy. Individualized dose optimization techniques were used for this CT. at 2341 Reported and signed by: Lee Ledbetter MD Electronically Signed: Lee Ledbetter MD at 23:40 EDT Tel , Service support , Brain CT 08/11/20 22:25 IMPRESSION: No acute intracranial findings. Individualized dose optimization techniques were used for this CT. at 2346 Reported and signed by: Lee Ledbetter MD Electronically Signed: Lee Ledbetter MD at 23:45 EDT Tel , Service support , Discharge Plan Triage Chief Complaint: Flank Pain ED Provider: Saúl Aguilar Dx/Rx/DC Orders Clinical Impression: Urinary tract infection, Headache Instructions: ED Bladder Infection, Male (Adult) Prescriptions: New ciprofloxacin HCl [Cipro] 500 mg tablet 500 mg PO BID Qty: 6 RF: 0 No Action alfuzosin 10 mg tablet extended release 24 hr 10 mg PO DAILY RF: 0 budesonide-formoterol [Symbicort] 160-4.5 mcg/actuation HFA aerosol inhaler 2 puff INHALATION BID Qty: 10.2 RF: 1 aspirin 81 MG tablet,chewable 81 mg PO DAILY@0800 RF: 0 nitroglycerin 0.4 MG tablet 0.4 mg Sublingual Q5M PRN (Reason: Cardiac/Chest Pain) Qty: 10 RF: 0 albuterol sulfate 1 INHALER inhaler 1 - 2 puff INHALATION Q4H PRN PRN (Reason: Wheezing) Qty: 1 RF: 0 (DME) lancets [FreeStyle Lancets] 28 gauge misc See Rx Instructions .ROUTE .MEDSUPPLY Qty: 50 RF: 11 (DME) blood-glucose meter [FreeStyle System Kit] Kit See Rx Instructions .ROUTE .MEDSUPPLY Qty: 1 RF: 0 (DME) FreeStyle Test Strip See Rx Instructions .ROUTE .MEDSUPPLY Qty: 50 RF: 11 atorvastatin 40 mg tablet 40 mg PO QHS Qty: 30 RF: 11 famotidine 20 mg tablet 20 mg PO DAILY PRN (Reason: reflux) Qty: 90 RF: 1 isosorbide mononitrate 30 mg tablet extended release 24 hr See Rx Instructions .ROUTE .COMPLEX Qty: 90 RF: 3 albuterol sulfate 90 mcg/actuation HFA aerosol inhaler 2 puff inhalation Q4H PRN PRN (Reason: Wheezing) Qty: 1 RF: 3 buspirone 5 mg tablet 5 mg PO BID Qty: 180 RF: 1 fenofibrate micronized 134 mg capsule 134 mg PO DAILY Qty: 90 RF: 3 Humalog Mix 50-50 KwikPen 100 unit/mL (50-50) insulin pen 60 unit SC BID 90 Days Qty: 108 RF: 3 losartan 25 mg tablet 25 mg PO DAILY Qty: 90 RF: 0 metformin 1,000 mg tablet 1,000 mg PO BID Qty: 180 RF: 1 clopidogrel 75 mg tablet 75 mg PO DAILY Qty: 90 RF: 3 atenolol 50 mg tablet 50 mg PO DAILY Qty: 90 RF: 3 (DME) pen needle, diabetic [1st Tier Unifine Pentips Plus] 31 gauge x 3/16 needle See Rx Instructions .ROUTE .MEDSUPPLY Qty: 100 RF: 1 Primary Care Provider: Ant Nuñez Referrals: Ant Nuñez, [Primary Care Provider] - 3-5 Days Disposition Disposition: Home, self care
[2020-08-12 01:15] VITALS: BP 120/63; PULSE 72; RESP 14; O2SAT 94
== END 2020-08-12 01:16 | disposition home or self-care (01) ==
PROVIDERS: Emergency Provider Emergency Medicine; PCP Family Medicine
DX: N39.0 Urinary tract infection, site not specified (principal); R51.9 Headache, unspecified; I10 Essential (primary) hypertension; E11.9 Type 2 diabetes mellitus without complications; E78.5 Hyperlipidemia, unspecified; I25.10 Atherosclerotic heart disease of native coronary artery without angina pectoris; I25.2 Old myocardial infarction; K21.9 Gastro-esophageal reflux disease without esophagitis; M19.90 Unspecified osteoarthritis, unspecified site; I65.21 Occlusion and stenosis of right carotid artery; J45.909 Unspecified asthma, uncomplicated; Z87.19 Personal history of other diseases of the digestive system; Z79.4 Long term (current) use of insulin; Z79.82 Long term (current) use of aspirin; Z79.899 Other long term (current) drug therapy; F17.210 Nicotine dependence, cigarettes, uncomplicated
CPT/HCPCS: 70450; 74176; 80053; 81001; 83690; 85025; 87086; 96361; 96374; 96375; 99284; J7030; A4216

== ENCOUNTER → 2021-01-29 12:35 | Outpatient (CLI) | payer MEDICAID, SELFPAY ==
--- NOTE | 2021-01-29 12:45 | CT_ITS ---
STUDY: LOW DOSE CT LUNG CANCER SCREENING REASON FOR EXAM: Male, 61 years old. Lung cancer screening -- 92 pk year history; current smoker;asymptomatic RADIATION DOSAGE (If Supplied By Facility): CTDIvol = ( 2.39 ) mGy, DLP = ( 69.97 ) mGycm TECHNIQUE: No contrast was administered. Low dose technique was utilized (average mAS-38 and kVp 120). 1.25 mm axial source images with a slice interval of 1.25-mm were reconstructed in lung windows. 2.5 mm axial source images with a slice interval of 2.5-mm were reconstructed in lung windows. 5.0 mm axial source images with a slice interval of 5.0-mm were reconstructed in soft tissue windows. Nodule measured using lung windows on PACS and/or independent workstation with automated measurement of minimum and maximum diameter. Nodule measurement reported as average diameter rounded to the nearest whole number. Growth is defined as an increase ins size of greater than 1.5 mm. COMPARISON: Comparison is made with prior study of 08/16/2019. NODULES: No suspicious nodules are seen. Emphysema: Hyperinflation. Stable minimal linear scarring in the anterior aspect of the right upper lobe as well as in the lung bases. Endobronchial lesion: None Aorta: Atherosclerotic plaque formation of the aortic arch. Coronary arteries: Coronary artery calcification. Heart: The patient is status post CABG. Pulmonary artery: Mediastinal nodes: Small benign-appearing mediastinal lymph nodes. Other chest and abdominal findings: Degenerative changes of the thoracic spine. CT/Low Dose CT Lung Screening IMPRESSION: Lung-RADS category 2 - Continue annual screening with LDCT in 12 months. IMPORTANT NOTES FOR USE: ACR Lung-RADS Version 1.1 Assessment Categories Release Date: 2018 Category: Coded 0-4 bases on nodule(s) with highest degree of suspicion. Negative screen is defined as categories 1 and 2; a positive screen is defined as categories 3 and 4. Category 3 and 4A nodules that are unchanged on interval CT should be coded as category 2, and individuals returned to screening in 12 months. Category 4X: Category 3 or 4 nodules with additional imaging findings that increase the suspicion of lung cancer, such as spiculation, GGN that doubles in size in 1 year, enlarged lymph notes, etc. Category Modifiers: S (significant finding unrelated to lung cancer) Electronically Signed: Sam Duncan MD at 13:37 EDT , Service support ,
== END ==
PROVIDERS: PCP Family Medicine; Referring Provider Nurse Practitioner Family; Visit Provider Nurse Practitioner Family
DX: Z12.2 Encounter for screening for malignant neoplasm of respiratory organs (principal); F17.210 Nicotine dependence, cigarettes, uncomplicated
CPT/HCPCS: 71271

== ENCOUNTER 2021-06-13 15:21 | Outpatient (CLI) | payer MEDICAID, SELFPAY ==
[2021-06-13 17:13] LABS: Anion Gap 6 (5-15); BUN 18 mg/dL (7-18); BUN/Creat Ratio 18.6 RATIO (10-20); Calcium,Total 7.1 mg/dL (8.5-10.1); Chloride 92 mmol/L (98-107); Cholesterol 384 mg/dL (200); Creatinine, Serum 0.97 mg/dL (0.70-1.30); EST Glomerular Filtration Rate 84 mL/min (>60); Est Glom Filt Rate - Afr Amer 101 mL/min (>60); Glucose 351 mg/dL (74-106); Hemoglobin A1c 11.7 % (3.8-5.6); High Density Lipoprotein 32 mg/dL; Potassium 4.3 mmol/L (3.5-5.1); Sodium Level 127 mmol/L (136-145)
[2021-06-13 17:16] LABS: Triglycerides > 1000 mg/dL; Very Low Density Lipoprotein 200 mg/dL (5-40)
== END 2021-06-13 23:59 | disposition home or self-care (01) ==
LOC: BIMLAB 15:21
PROVIDERS: PCP Family Medicine; Referring Provider Family Medicine; Visit Provider Family Medicine
DX: E11.9 Type 2 diabetes mellitus without complications (principal); Z79.4 Long term (current) use of insulin; E78.2 Mixed hyperlipidemia
CPT/HCPCS: 36415; 80048; 80061; 83036

== ENCOUNTER 2021-07-18 20:46 | Emergency (ER) | payer MEDICAID, SELFPAY ==
[2021-07-18 20:48] VITALS: BP 151/83; PULSE 97; RESP 18; TEMP 37.1; O2SAT 93; BMI 26.9
--- NOTE | 2021-07-18 21:59 | EX.ED.VIS.UR ---
HPI HPI - URI History of Present Illness Chief Complaint: Headache Informant: patient Onset/Context/Timing Onset: Yesterday Context: Gradual Onset Timing: Continuous Quality: headache Location: bifrontal Current Severity: Moderate Maximum Severity: Moderate Worsened by: - (nothing) Relieved by: - (nothing but hasn't taken anything) Associated Symptoms Associated Symptoms: Positive for Headache and Productive Cough (brown); Negative for Myalgias, Nausea, Vomiting, Diarrhea, Shortness of Breath, Chest Pain and Hemoptysis Narrative Narrative: Patient with headache, malaise, subjective fevers and chills this morning, cough that is occasionally productive of some brown sputum without blood, and rhinorrhea that started yesterday. He has COPD and coronary disease. He states he has no interest in getting vaccinated against COVID. He states his daughter had Covid a couple weeks ago, they are both presenting during the second variant of omicron surge, and after she was better she tested the patient with a rapid test that was negative, this was about 1 week ago. He denies any chest pain or dyspnea or other systemic symptoms except for just feeling malaised. He is still able to get around. He states earlier today he was seen at urgent care and they did not do any testing nor prescribe him any medication so he came here. ROS [facility] ED Constitutional Constitutional ED: Reports body ache(s), chills, fatigue, fever(s), headache(s) and malaise Eyes Eyes: Denies change in vision or diplopia ENT ENT ED: Reports rhinorrhea; Denies sore throat Cardiovascular Cardiovascular: Denies chest pain or palpitations Respiratory/Chest Respiratory/Chest: Reports cough; Denies dyspnea or dyspnea on exertion Gastrointestinal Gastrointestinal: Denies abdominal pain, diarrhea, nausea or vomiting Genitourinary Genitourinary ED: Denies dysuria or hematuria Musculoskeletal Musculoskeletal: Denies back pain or neck pain Integumentary Denies abscess or rash Neurologic Neurologic: Reports headache(s); Denies paresthesias or weakness Psychiatric Psychiatric: Denies anxiety or suicidal thoughts [facility] Medical History Arthritis Asthma Atherosclerosis of coronary artery of [place] heart without angina pectoris Emphysema lung Encounter for screening for malignant neoplasm of lung in current smoker with 30 pack year history or greater Essential (primary) hypertension GERD (gastroesophageal reflux disease) History of non-ST elevation myocardial infarction (NSTEMI) (06/11/18) Hyperlipidemia Insulin dependent diabetes mellitus Nicotine dependence Pancreatitis Stenosis of right carotid artery Type 2 diabetes mellitus Home Medications aspirin 81 mg PO DAILY@0800 04/08/17 [History Last Taken 07/10/17] nitroglycerin 0.4 mg SUBLINGUAL Q5M PRN #10 tab 06/12/18 [Rx Last Taken Unknown] albuterol sulfate 90 mcg/actuation aerosol inhaler 2 puff INHALATION Q4H PRN PRN #1 inhaler 04/02/21 [Rx Last Taken Unknown] alfuzosin 10 mg tablet,extended release 24 hr 10 mg PO DAILY #90 tab 04/02/21 [Rx Last Taken Unknown] atenolol 50 mg tablet 50 mg PO DAILY #90 tab 04/02/21 [Rx Last Taken Unknown] atorvastatin 40 mg tablet 40 mg PO QHS #30 tab 04/02/21 [Rx Last Taken Unknown] blood sugar diagnostic #50 ea 04/02/21 [Rx Last Taken Unknown] blood-glucose meter #1 ea 04/02/21 [Rx Last Taken Unknown] budesonide-formoterol HFA 160 mcg-4.5 mcg/actuation aerosol inhaler 2 puff INHALATION BID #10.2 g 04/02/21 [Rx Last Taken Unknown] buspirone 5 mg tablet 5 mg PO BID #180 tablet 04/02/21 [Rx Last Taken Unknown] clopidogrel 75 mg tablet 75 mg PO DAILY #90 tab 04/02/21 [Rx Last Taken Unknown] fenofibrate micronized 134 mg capsule 134 mg PO DAILY #90 cap 04/02/21 [Rx Last Taken Unknown] insulin lispro protamine-lispro 100 unit/mL (50-50) subcutaneous pen 60 unit SC BID 90 Days #108 ml 04/02/21 [Rx Last Taken Unknown] isosorbide mononitrate 30 mg tablet,extended release 24 hr See Rx Instructions .ROUTE .COMPLEX #90 tab 04/02/21 [Rx Last Taken Unknown] lancets 28 gauge #50 ea 04/02/21 [Rx Last Taken Unknown] losartan 25 mg tablet 25 mg PO DAILY #90 tablet 04/02/21 [Rx Last Taken Unknown] metformin 1,000 mg tablet 1,000 mg PO BID #180 tab 04/02/21 [Rx Last Taken Unknown] pen needle, diabetic 31 gauge x 3/16 #100 ea 04/02/21 [Rx Last Taken Unknown] pantoprazole 40 mg tablet,delayed release 40 mg PO DAILY #30 tab 06/13/21 [Rx Last Taken Unknown] nirmatrelvir-ritonavir [Paxlovid (EUA)] See Rx Instructions .ROUTE .COMPLEX #30 tab 07/18/21 [Rx Last Taken Unknown] Allergy/AdvReac Type Severity Reaction Status Date / Time amoxicillin Allergy Angioedema Verified 07/18/21 20:47 lindane Allergy Rash Verified 07/18/21 20:47 Family History Father Asthma Alcoholism Arthritis Heart disease Hypertension High cholesterol CVA (cerebral vascular accident) Lung cancer Grandfather Myocardial infarction Surgical History H/O coronary artery bypass surgery (2006) History of carotid endarterectomy (01/06/14) History of hernia repair History of left heart catheterization (06/11/18) Social History Smoking Status: Current every day smoker tobacco type: cigarettes Tobacco: How many years used: 45 Electronic Cigarette Use: not used second hand exposure: Yes quit status: considering quitting counseling given: provider counseling alcohol intake: never substance use type: does not use caffeine: Yes Type: coffee Number of servings: 5 what type of physical activity do you participate in: none EXAM Physical Exam Const Vital Signs: 07/18/21 20:48 07/18/21 21:20 Temperature 98.8 F Temperature Source Temporal Pulse Rate 97 Respiratory Rate 18 Blood Pressure 151/83 H Blood Pressure Mean 105 Pulse Ox 93 Oxygen Delivery Method Room Air Room Air Positive well nourished and well developed Constitutional Narrative: Well-appearing, no distress General Appearance ED: well developed and NAD HEENT Reports moist mucous membranes normocephalic and atraumatic Eyes PERRL and EOMs intact bilaterally Neck full ROM, no lymphadenopathy, supple and no meningeal signs Resp normal respiratory effort and clear to auscultation bilaterally Cardio regular rate, regular rhythm and no murmurs Rate: Negative for tachycardic GI non-tender and non-distended Auscultation: normoactive bowel sounds Palpation: soft Back/Spine no CVA tenderness General Back: other FROM Extremity normal to inspection and no calf tenderness General Extremety ED: Negative for edema, pulses abnormal or tenderness General Extremity: Negative for edema or pulses abnormal Neuro oriented x3, CN's II-XII intact bilaterally and no sensory deficits noted Sensorium / Orientation: awake and alert Motor Exam: strength 5/5 throughout Skin no rashes or lesions noted and no wounds MDM MDM MDM Narrative Medical decision making narrative: 1 view chest x-ray my interpretation is negative for any acute. Radiology in agreement. His Covid swab returned positive confirming COVID-19 given his symptoms. Influenza negative. Pulse ox and other vital signs are stable, above 90 on room air. He does not have any dyspnea even with exertion. This unvaccinated COPD patient who continues to smoke is at high risk for progression to severe disease. In my judgment, the benefits of Paxlovid which we have available here as a prescription, outweigh the potential risks including systemic corticosteroid exposure from his budesonide, decreased antiplatelet effect with his clopidogrel (he has no stents), and he will be advised to hold his alfuzosin. Given appropriate discharge instructions regarding Covid as well and reasons to return. Discharge Plan Triage Chief Complaint: Headache ED Provider: Bigg Martínez Dx/Rx/DC Orders Clinical Impression: COVID-19, COPD (chronic obstructive pulmonary disease) with emphysema Instructions: Coronavirus Disease 2019 (COVID-19): Caring for Yourself or Others Prescriptions: New Paxlovid (EUA) 150 mg x 2- 100 mg tablet See Rx Instructions .ROUTE .COMPLEX Qty: 30 RF: 0 Continued pantoprazole 40 mg tablet,delayed release (DR/EC) 40 mg PO DAILY Qty: 30 RF: 3 aspirin 81 MG tablet,chewable 81 mg PO DAILY@0800 RF: 0 nitroglycerin 0.4 MG tablet 0.4 mg Sublingual Q5M PRN (Reason: Cardiac/Chest Pain) Qty: 10 RF: 0 albuterol sulfate 90 mcg/actuation HFA aerosol inhaler 2 puff inhalation Q4H PRN PRN (Reason: Wheezing) Qty: 1 RF: 3 atenolol 50 mg tablet 50 mg PO DAILY Qty: 90 RF: 3 atorvastatin 40 mg tablet 40 mg PO QHS Qty: 30 RF: 11 (DME) FreeStyle Test Strip See Rx Instructions .ROUTE .MEDSUPPLY Qty: 50 RF: 11 (DME) blood-glucose meter [FreeStyle System Kit] Kit See Rx Instructions .ROUTE .MEDSUPPLY Qty: 1 RF: 0 budesonide-formoterol [Symbicort] 160-4.5 mcg/actuation HFA aerosol inhaler 2 puff INHALATION BID Qty: 10.2 RF: 1 buspirone 5 mg tablet 5 mg PO BID Qty: 180 RF: 1 clopidogrel 75 mg tablet 75 mg PO DAILY Qty: 90 RF: 3 fenofibrate micronized 134 mg capsule 134 mg PO DAILY Qty: 90 RF: 3 Humalog Mix 50-50 KwikPen 100 unit/mL (50-50) insulin pen 60 unit SC BID 90 Days Qty: 108 RF: 3 isosorbide mononitrate 30 mg tablet extended release 24 hr See Rx Instructions .ROUTE .COMPLEX Qty: 90 RF: 3 (DME) lancets [FreeStyle Lancets] 28 gauge misc See Rx Instructions .ROUTE .MEDSUPPLY Qty: 50 RF: 11 losartan 25 mg tablet 25 mg PO DAILY Qty: 90 RF: 2 metformin 1,000 mg tablet 1,000 mg PO BID Qty: 180 RF: 1 (DME) pen needle, diabetic [1st Tier Unifine Pentips Plus] 31 gauge x 3/16 needle See Rx Instructions .ROUTE .MEDSUPPLY Qty: 100 RF: 1 Held alfuzosin 10 mg tablet extended release 24 hr 10 mg PO DAILY Qty: 90 RF: 3 Hold Instructions: Resume on 07/26/21. Primary Care Provider: Ant Nuñez Referrals: Ant Nuñez, DO [Primary Care Provider] - Activity Restrictions/Additional Instructions: Try to get a home portable pulse oximeter and closely watch your oxygen levels periodically. If you stay below 90% for more than a minute or so, and/or you are feeling like your breathing is getting worse, return to the emergency department for further evaluation. Disposition Disposition: Home, Self Care
[2021-07-18] MEDS: Acetaminophen 500 MG Tablet 1000 MG PO (22:09)
--- NOTE | 2021-07-18 22:09 | RAD_ITS ---
STUDY: AP PORTABLE UPRIGHT CHEST X-RAY OF 2203 HOURS AND 07/18/2021 REASON FOR EXAM: 61-year-old male with cough and fever. TECHNIQUE: A single view portable AP upright chest x-ray was performed per protocol. COMPARISON: 07/05/2020 and 01/15/2020.. FINDINGS: Mildly lordotic view. Residue of a previous sternal thoracotomy. No cardiomegaly. Minimal fibrotic changes of both lower lobes that haven''t changed from both the previous studies of 07/05/2020 or 01/15/2020. No evidence of pulmonary infiltrates, atelectasis, effusion, or pulmonary mass lesions. There is no evidence of interval change since the previous examinations. RAD/Chest 1 View (Portable) IMPRESSION: 1. No significant interval change since previous examinations of 07/05/2020 and 01/15/2020. 2. Mild fibrotic change of both lower lobes. 3. No pulmonary infiltrates, atelectasis, effusion, or mass lesions. 4. No cardiomegaly. 5. Previous sternal thoracotomy. Electronically Signed: Shaun Ko MD at 23:41 EDT ,
[2021-07-19 00:14] VITALS: PULSE 78; RESP 18; O2SAT 95
== END 2021-07-19 00:14 | disposition home or self-care (01) ==
PROVIDERS: Emergency Provider Emergency Medicine; PCP Family Medicine; Visit Provider Emergency Medicine
DX: U07.1 COVID-19 (principal); J44.9 Chronic obstructive pulmonary disease, unspecified; E11.9 Type 2 diabetes mellitus without complications; Z79.4 Long term (current) use of insulin; J45.909 Unspecified asthma, uncomplicated; M19.90 Unspecified osteoarthritis, unspecified site; K21.9 Gastro-esophageal reflux disease without esophagitis; I25.2 Old myocardial infarction; E78.5 Hyperlipidemia, unspecified; Z87.19 Personal history of other diseases of the digestive system; I65.21 Occlusion and stenosis of right carotid artery; I10 Essential (primary) hypertension; Z79.82 Long term (current) use of aspirin; Z79.899 Other long term (current) drug therapy; I25.10 Atherosclerotic heart disease of native coronary artery without angina pectoris; F17.210 Nicotine dependence, cigarettes, uncomplicated; Z95.1 Presence of aortocoronary bypass graft
CPT/HCPCS: 71045; 87426; 87804; 99283

== ENCOUNTER 2021-12-08 23:17 | Emergency (ER) | payer MEDICAID, SELFPAY ==
[2021-12-08 23:18] VITALS: BP 153/86; PULSE 72; RESP 18; TEMP 36.6; O2SAT 95; BMI 26.4
--- NOTE | 2021-12-08 23:39 | EX.ED.VIS.UR ---
HPI HPI - URI History of Present Illness Chief Complaint: Cough Onset/Context/Timing Onset: Weeks (1) Context: Gradual Onset Timing: Continuous Quality: Congested Location: Nose Worsened by: - (Laying down) Relieved by: - (Nothing) Associated Symptoms Associated Symptoms: Positive for Nasal Congestion, Headache, Chest Pain (1 to 2 seconds earlier this week) and Productive Cough (Green sputum); Negative for Sinus Pressure, Myalgias, Nausea, Vomiting, Diarrhea, Shortness of Breath, Nonproductive cough or Hemoptysis Narrative Narrative: Patient presents with cough and rhinorrhea that has been constant for the last week. Patient states it is gradually getting worse. Patient states he is coughing up some green sputum. Patient denies any fevers or chills. Patient admits to some nasal congestion. Patient states he has been taking [id number] Mucinex DM with no improvement of his symptoms. Patient also admits to a headache. Patient states he did have a brief episode of pain in his chest earlier this week but that resolved after a minute or 2. Patient denies any shortness of breath. Patient denies any nausea, vomiting, or diarrhea. ROS ROS ED Constitutional Constitutional ED: Denies chills or fever(s) Eyes Eyes: Denies blurry vision or change in vision ENT ENT ED: Reports rhinorrhea; Denies sore throat Cardiovascular Cardiovascular: Denies chest pain or palpitations Respiratory/Chest Respiratory/Chest: Reports cough; Denies dyspnea Gastrointestinal Gastrointestinal: Denies nausea or vomiting Genitourinary Genitourinary ED: Denies dysuria or hematuria Musculoskeletal Musculoskeletal: Reports neck pain; Denies back pain Integumentary Denies abscess or rash Neurologic Neurologic: Reports headache(s); Denies weakness Allergic/Immunologic Allergic/Immunologic ED: Denies mouth swelling or urticaria [facility] Medical History Arthritis Asthma Atherosclerosis of coronary artery of [place] heart without angina pectoris Emphysema lung Encounter for screening for malignant neoplasm of lung in current smoker with 30 pack year history or greater Essential (primary) hypertension GERD (gastroesophageal reflux disease) History of non-ST elevation myocardial infarction (NSTEMI) (06/11/18) Hyperlipidemia Insulin dependent diabetes mellitus Nicotine dependence Pancreatitis Stenosis of right carotid artery Type 2 diabetes mellitus Home Medications nitroglycerin 0.4 mg sublingual tablet 0.4 mg sublingual Q5M PRN Cardiac/Chest Pain #10 tabs 06/12/18 [Rx Last Taken Unknown] alfuzosin 10 mg tablet,extended release 24 hr 10 mg PO DAILY #90 tabs 04/02/21 [Rx Last Taken Unknown] blood sugar diagnostic (FreeStyle Test strips) #50 ea 04/02/21 [Rx Last Taken Unknown] blood-glucose meter (FreeStyle System Kit) #1 ea 04/02/21 [Rx Last Taken Unknown] lancets 28 gauge (FreeStyle Lancets) #50 ea 04/02/21 [Rx Last Taken Unknown] pen needle, diabetic 31 gauge x 3/16 (1st Tier Unifine Pentips Plus) #100 ea 04/02/21 [Rx Last Taken Unknown] albuterol sulfate 90 mcg/actuation aerosol inhaler 2 puff inhalation Q4H PRN PRN Wheezing ##1 11/01/21 [Rx Last Taken Unknown] aspirin 81 mg chewable tablet 81 mg PO DAILY@0800 health maintenance #90 tabs 11/01/21 [Rx Last Taken Unknown] atenolol 50 mg tablet 50 mg PO DAILY #90 tabs 11/01/21 [Rx Last Taken Unknown] atorvastatin 40 mg tablet 40 mg PO QHS #90 tabs 11/01/21 [Rx Last Taken Unknown] budesonide-formoterol HFA 160 mcg-4.5 mcg/actuation aerosol inhaler (Symbicort) 2 puff inhalation BID #10.2 grams 11/01/21 [Rx Last Taken Unknown] buspirone 5 mg tablet 5 mg PO BID anxiety #180 tabs 11/01/21 [Rx Last Taken Unknown] clopidogrel 75 mg tablet 75 mg PO DAILY #90 tabs 11/01/21 [Rx Last Taken Unknown] fenofibrate micronized 134 mg capsule 134 mg PO DAILY lowers cholesterol #90 caps 11/01/21 [Rx Last Taken Unknown] insulin lispro protamine-lispro 100 unit/mL (50-50) subcutaneous pen (Humalog Mix 50-50 KwikPen) 60 unit (0.6 mL) subcut BID 90 days #108 mL 11/01/21 [Rx Last Taken Unknown] isosorbide mononitrate 30 mg tablet,extended release 24 hr See Rx Instructions .Route .COMPLEX #90 tabs 07/29/22 [Rx Last Taken Unknown] losartan 25 mg tablet 25 mg PO DAILY #90 tabs 11/01/21 [Rx Last Taken Unknown] metformin 1,000 mg tablet 1,000 mg PO BID #180 tabs 11/01/21 [Rx Last Taken Unknown] pantoprazole 40 mg tablet,delayed release 40 mg PO DAILY #90 tabs 11/01/21 [Rx Last Taken Unknown] Allergy/AdvReac Type Severity Reaction Status Date / Time amoxicillin Allergy Angioedema Verified 12/08/21 23:21 lindane Allergy Rash Verified 12/08/21 23:21 Family History Father Asthma Alcoholism Arthritis Heart disease Hypertension High cholesterol CVA (cerebral vascular accident) Lung cancer Grandfather Myocardial infarction Surgical History H/O coronary artery bypass surgery (2006) History of carotid endarterectomy (01/06/14) History of hernia repair History of left heart catheterization (06/11/18) Social History Smoking Status: Current every day smoker tobacco type: cigarettes Tobacco: How many years used: 45 Electronic Cigarette Use: not used second hand exposure: Yes quit status: considering quitting counseling given: provider counseling alcohol intake: never substance use type: does not use caffeine: Yes Type: coffee Number of servings: 5 what type of physical activity do you participate in: none EXAM Physical Exam Const Vital Signs: 12/08/21 23:18 12/08/21 23:25 Temperature 97.9 F Temperature Source Temporal Pulse Rate 72 Respiratory Rate 18 Respiratory Effort Normal Non-Labored Blood Pressure 153/86 H Blood Pressure Mean 108 Pulse Ox 95 Oxygen Delivery Method Room Air Positive well nourished and well developed General Appearance ED: well developed and NAD HEENT Reports moist mucous membranes Throat: posterior oropharynx abnormal Positive for cobblestoning; Negative for edema or exudates Eyes PERRL and EOMs intact bilaterally Neck no lymphadenopathy, supple, no meningeal signs and no JVD Resp normal respiratory effort Auscultation: wheezes scattered wheezes Cardio regular rate, regular rhythm and no murmurs GI normal to inspection, nondistended, normoactive bowel sounds and non-tender Palpation: soft Extremity normal to inspection General Extremety ED: Negative for edema or tenderness General Extremity: Negative for edema Neuro oriented x3, CN's II-XII intact bilaterally and no sensory deficits noted Sensorium / Orientation: alert Motor Exam: strength 5/5 throughout Psych mental status grossly normal Skin no rashes or lesions noted MDM MDM MDM Narrative Medical decision making narrative: Patient was given a DuoNeb aerosol here. COVID-19 rapid antigen was obtained and was negative. Influenza A and influenza B swabs were obtained and were negative. PA and lateral chest x-ray was obtained. There are 2 views. On my interpretation, lung cardenas show some chronic changes in the bases bilaterally. There is normal cardiac silhouette. Bony thorax is normal. There is no acute process noted. Radiologist also interpreted the x-ray and agrees. Patient feels better on reevaluation. Patient was advised of his findings. Patient was advised that this is most likely a viral upper respiratory infection. Patient was instructed to take [id number] decongestants and cough medications as needed. Patient was instructed to drink plenty of fluids. Patient was instructed to take Tylenol or ibuprofen as needed for any pain or fever. Patient understood and was agreeable with the plan. All questions were answered. Radiography Diagnostic Testing: Clinical Impression(s) from Imaging Studies Chest X-Ray 12/09/21 00:00 IMPRESSION: Possible basilar bronchial inflammation versus chronic changes. No pulmonary edema, congestive heart failure or confluent pneumonia. Other nonacute findings as outlined above. Electronically Signed: Tonya Clinton MD at 0:41 EDT Reading Location ID and State: , Service support , Discharge Plan Triage Chief Complaint: Cough ED Provider: Saúl Aguilar Dx/Rx/DC Orders Clinical Impression: Viral upper respiratory tract infection with cough, Essential (primary) hypertension, Nicotine dependence Instructions: ED URI, Viral, No Abx (Adult) Prescriptions: No Action nitroglycerin 0.4 MG tablet 0.4 mg Sublingual Q5M PRN (Reason: Cardiac/Chest Pain) Qty: 10 0RF alfuzosin 10 mg tablet extended release 24 hr 10 mg PO DAILY Qty: 90 3RF Hold Instructions: Resume on 07/26/21. Rx Instructions: administer after the same meal each day (DME) FreeStyle Test Strip See Rx Instructions .ROUTE .MEDSUPPLY Qty: 50 11RF Rx Instructions: check blood glucose daily (DME) blood-glucose meter [FreeStyle System Kit] Kit See Rx Instructions .ROUTE .MEDSUPPLY Qty: 1 0RF Rx Instructions: check blood glucose daily for type 2 DM (DME) lancets [FreeStyle Lancets] 28 gauge misc See Rx Instructions .ROUTE .MEDSUPPLY Qty: 50 11RF Rx Instructions: Check blood glucose daily for type 2 DM (DME) pen needle, diabetic [1st Tier Unifine Pentips Plus] 31 gauge x 3/16 needle See Rx Instructions .ROUTE .MEDSUPPLY Qty: 100 1RF Rx Instructions: use with lantus nightly albuterol sulfate 90 mcg/actuation HFA aerosol inhaler 2 puff inhalation Q4H PRN PRN (Reason: Wheezing) Qty: 1 3RF aspirin 81 mg tablet,chewable 81 mg PO DAILY@0800 Qty: 90 3RF atenolol 50 mg tablet 50 mg PO DAILY Qty: 90 3RF atorvastatin 40 mg tablet 40 mg PO QHS Qty: 90 3RF budesonide-formoterol [Symbicort] 160-4.5 mcg/actuation HFA aerosol inhaler 2 puff INHALATION BID Qty: 10.2 3RF buspirone 5 mg tablet 5 mg PO BID Qty: 180 1RF clopidogrel 75 mg tablet 75 mg PO DAILY Qty: 90 3RF fenofibrate micronized 134 mg capsule 134 mg PO DAILY Qty: 90 3RF Humalog Mix 50-50 KwikPen 100 unit/mL (50-50) insulin pen 60 unit SC BID 90 Days Qty: 108 3RF Rx Instructions: 9 pm: eat a meal, take 40 units insulin 1 am: eat a meal during work break 8 am: eat a meal take 50 units insulin isosorbide mononitrate 30 mg tablet extended release 24 hr See Rx Instructions .ROUTE .COMPLEX Qty: 90 3RF Dose Instruction: TAKE 1 TABLET BY MOUTH EVERY DAY Rx Instructions: TAKE 1 TABLET BY MOUTH EVERY DAY metformin 1,000 mg tablet 1,000 mg PO BID Qty: 180 1RF pantoprazole 40 mg tablet,delayed release (DR/EC) 40 mg PO DAILY Qty: 90 3RF losartan 25 mg tablet 25 mg PO DAILY Qty: 90 3RF Primary Care Provider: Ant Nuñez Referrals: Ant Nuñez, [Primary Care Provider] - 5-7 Days Disposition Disposition: Home, Self Care
[2021-12-08] MEDS: Ipratropium/Albuterol Sulfate 3 ML AMPUL.NEB INHALATION (23:53)
--- NOTE | 2021-12-09 | RAD_ITS ---
STUDY: X-RAY CHEST REASON FOR EXAM: Male, 61 years old. Cough TECHNIQUE: PA and lateral views of the chest. COMPARISON: 07/18/2021 FINDINGS: Mild bilateral basal interstitial prominence, no air bronchograms or focal opacification. There is no demonstrated pleural abnormality. Sternal cerclage wires are present from a prior sternotomy. Normal mediastinum and radha. Normal visualized pulmonary arteries. There is atherosclerotic calcification of the aortic arch with tortuosity. There are diffuse degenerative changes of the visualized thoracic spine. There are degenerative changes of the acromioclavicular joints. There is no demonstrated abnormality of the visualized soft tissue structures of the upper abdomen. RAD/Chest PA and Lateral IMPRESSION: Possible basilar bronchial inflammation versus chronic changes. No pulmonary edema, congestive heart failure or confluent pneumonia. Other nonacute findings as outlined above. Electronically Signed: Tonya Clinton MD at 0:41 EDT Reading Location ID and State: , Service support ,
[2021-12-09 01:16] VITALS: BP 144/71; PULSE 74; RESP 19; O2SAT 95
== END 2021-12-09 01:17 | disposition home or self-care (01) ==
PROVIDERS: Emergency Provider Emergency Medicine; PCP Family Medicine; Visit Provider Emergency Medicine
DX: J06.9 Acute upper respiratory infection, unspecified (principal); I10 Essential (primary) hypertension; I25.10 Atherosclerotic heart disease of native coronary artery without angina pectoris; F17.210 Nicotine dependence, cigarettes, uncomplicated; I25.2 Old myocardial infarction; Z95.1 Presence of aortocoronary bypass graft
CPT/HCPCS: 71046; 87428; 99282

== ENCOUNTER → 2022-01-01 | Outpatient (CLI) | payer MEDICAID, SELFPAY ==
[2022-01-01 16:40] LABS: Absolute Lymphocyte Count 2.63 X10^3/uL (0.83-4.51); Absolute Neutrophil Count 3.5 X10^3/uL (2.0-7.7); Basophil# 0.02 X10^3/uL; Basophil% 0.3 % (0-1); Eosinophil# 0.23 X10^3/uL; Eosinophils% 3.4 % (0-5); Hematocrit 46.4 % (40-54); Hemoglobin 16.4 g/dL (13.0-16.5); Lymphocyte # 2.63 X10^3/ul (0.83-4.51); Lymphocyte % 38.7 % (19-41); Mean Corp Hgb Conc 35.3 g/dL (32-36); Mean Corpuscular Hgb 33.1 pg (27.0-32.0); Mean Corpuscular Volume 93.5 fL (80-94); Mean Platelet Vol. 10.3 fl (6.2-12.0); Monocyte# 0.43 X10^3/uL; Monocyte% 6.3 % (0-10); NRBC Flagged by Analyzer 0 % (0-5); Neutrophil # 3.46 X10^3/uL (2.7-7.7); Platelet Count 258 K/mm3 (150-450); RBC Distribution Width CV 11.9 % (11.6-14.6); Red Blood Count 4.96 M/mm3 (4.6-6.2); White Blood Count 6.8 K/mm3 (4.4-11.0)
[2022-01-01 16:51] LABS: Anion Gap 5 (5-15); BUN 15 mg/dL (7-18); BUN/Creat Ratio 15.3 RATIO (10-20); Calcium,Total 8.2 mg/dL (8.5-10.1); Chloride 98 mmol/L (98-107); Creatinine, Serum 0.98 mg/dL (0.70-1.30); EST Glomerular Filtration Rate 82 mL/min (>60); Est Glom Filt Rate - Afr Amer 100 mL/min (>60); Glucose 283 mg/dL (74-106); Potassium 4.2 mmol/L (3.5-5.1); Sodium Level 133 mmol/L (136-145); Vitamin D,25 Hydroxy 13.3 ng/mL
[2022-01-01 17:08] LABS: Hemoglobin A1c 11.6 % (3.8-5.6)
== END | disposition home or self-care (01) ==
LOC: BIMLAB 14:37
PROVIDERS: PCP Family Medicine; Referring Provider Family Medicine; Visit Provider Family Medicine
DX: I10 Essential (primary) hypertension (principal); E11.9 Type 2 diabetes mellitus without complications; Z79.4 Long term (current) use of insulin; I65.21 Occlusion and stenosis of right carotid artery; E83.51 Hypocalcemia
CPT/HCPCS: 36415; 80048; 82306; 83036; 85025

== ENCOUNTER 2022-03-01 19:45 | Emergency (ER) | payer MEDICAID, SELFPAY ==
[2022-03-01 19:47] VITALS: BP 141/75; PULSE 103; RESP 16; TEMP 36; O2SAT 94; BMI 27.9
--- NOTE | 2022-03-01 22:26 | ED.VIS.LOWEX ---
HPI History of Present Illness Chief Complaint: Lower Extremity Injury Detail of Chief Complaint: Redness left dent Informant: patient Onset/Context/Timing Onset: Today Narrative Narrative: Patient presents secondary to redness of the left anterior dent. He sitting on a slight tingling this morning. When he pulled his sock down he had redness over the anterior dent. He states this scared him so he came in to be evaluated. He does not know of any injury to the area. It does feel slightly warm. [facility] Medical History Arthritis Asthma Atherosclerosis of coronary artery of [place] heart without angina pectoris Emphysema lung Encounter for screening for malignant neoplasm of lung in current smoker with 30 pack year history or greater Essential (primary) hypertension GERD (gastroesophageal reflux disease) History of non-ST elevation myocardial infarction (NSTEMI) (06/11/18) Hyperlipidemia Insulin dependent diabetes mellitus Nicotine dependence Pancreatitis Stenosis of right carotid artery Type 2 diabetes mellitus Home Medications nitroglycerin 0.4 mg sublingual tablet 0.4 mg sublingual Q5M PRN Cardiac/Chest Pain #10 tabs 06/12/18 [Rx Last Taken Unknown] alfuzosin 10 mg tablet,extended release 24 hr 10 mg PO DAILY #90 tabs 04/02/21 [Rx Last Taken Unknown] blood sugar diagnostic (FreeStyle Test strips) #50 ea 04/02/21 [Rx Last Taken Unknown] blood-glucose meter (FreeStyle System Kit) #1 ea 04/02/21 [Rx Last Taken Unknown] lancets 28 gauge (FreeStyle Lancets) #50 ea 04/02/21 [Rx Last Taken Unknown] pen needle, diabetic 31 gauge x 3/16 (1st Tier Unifine Pentips Plus) #100 ea 04/02/21 [Rx Last Taken Unknown] albuterol sulfate 90 mcg/actuation aerosol inhaler 2 puff inhalation Q4H PRN PRN Wheezing ##1 11/01/21 [Rx Last Taken Unknown] aspirin 81 mg chewable tablet 81 mg PO DAILY@0800 health maintenance #90 tabs 11/01/21 [Rx Last Taken Unknown] atenolol 50 mg tablet 50 mg PO DAILY #90 tabs 11/01/21 [Rx Last Taken Unknown] atorvastatin 40 mg tablet 40 mg PO QHS #90 tabs 11/01/21 [Rx Last Taken Unknown] budesonide-formoterol HFA 160 mcg-4.5 mcg/actuation aerosol inhaler (Symbicort) 2 puff inhalation BID #10.2 grams 11/01/21 [Rx Last Taken Unknown] buspirone 5 mg tablet 5 mg PO BID anxiety #180 tabs 11/01/21 [Rx Last Taken Unknown] clopidogrel 75 mg tablet 75 mg PO DAILY #90 tabs 11/01/21 [Rx Last Taken Unknown] fenofibrate micronized 134 mg capsule 134 mg PO DAILY lowers cholesterol #90 caps 11/01/21 [Rx Last Taken Unknown] isosorbide mononitrate 30 mg tablet,extended release 24 hr See Rx Instructions .Route .COMPLEX #90 tabs 11/01/21 [Rx Last Taken Unknown] losartan 25 mg tablet 25 mg PO DAILY #90 tabs 11/01/21 [Rx Last Taken Unknown] metformin 1,000 mg tablet 1,000 mg PO BID #180 tabs 11/01/21 [Rx Last Taken Unknown] omeprazole 20 mg capsule,delayed release 20 mg PO DAILY #60 caps 01/01/22 [Rx Last Taken Unknown] insulin lispro protamine-lispro 100 unit/mL (50-50) subcutaneous pen (Humalog Mix 50-50 KwikPen) 70 unit subcut BID 01/08/22 [History Last Taken Unknown] doxycycline monohydrate 100 mg capsule 100 mg PO BID #20 caps 03/01/22 [Rx Last Taken Unknown] Allergy/AdvReac Type Severity Reaction Status Date / Time amoxicillin Allergy Angioedema Verified 01/01/22 14:14 lindane Allergy Rash Verified 01/01/22 14:14 Family History Father Asthma Alcoholism Arthritis Heart disease Hypertension High cholesterol CVA (cerebral vascular accident) Lung cancer Grandfather Myocardial infarction Surgical History H/O coronary artery bypass surgery (2006) History of carotid endarterectomy (01/06/14) History of hernia repair History of left heart catheterization (06/11/18) Social History Smoking Status: Current every day smoker tobacco type: cigarettes Tobacco: How many years used: 45 Electronic Cigarette Use: not used second hand exposure: Yes quit status: considering quitting counseling given: provider counseling alcohol intake: never substance use type: does not use caffeine: Yes Type: coffee Number of servings: 5 what type of physical activity do you participate in: none ROS ROS ED Constitutional Constitutional ED: Denies chills or fever(s) Eyes Eyes: Denies change in vision or discharge from eye(s) ENT ENT ED: Denies discharge from eye(s), rhinorrhea or sore throat Cardiovascular Cardiovascular: Denies chest pain or palpitations Respiratory/Chest Respiratory/Chest: Denies cough or dyspnea Gastrointestinal Gastrointestinal: Denies abdominal pain, diarrhea, nausea or vomiting Musculoskeletal Musculoskeletal: Denies back pain or extremity pain Integumentary Reports rash; Denies Abrasions Neurologic Neurologic: Denies headache(s) or weakness Allergic/Immunologic Allergic/Immunologic ED: Denies lip swelling or urticaria EXAM Physical Exam Const Vital Signs: 03/01/22 19:47 Temperature 96.8 F L Temperature Source Temporal Pulse Rate 103 H Respiratory Rate 16 Blood Pressure 141/75 H Blood Pressure Mean 97 Pulse Ox 94 Oxygen Delivery Method Room Air Positive well nourished and well developed General Appearance ED: well developed HEENT Reports normocephalic and head/scalp atraumatic Eyes PERRL and EOMs intact bilaterally Neck supple Chest Wall inspection of chest normal and palpation of chest normal Resp normal respiratory effort and clear to auscultation bilaterally Cardio regular rate and regular rhythm GI normal to inspection, nondistended, normoactive bowel sounds Palpation: soft Extremity Extremity Narrative: 23 x 9 cm area of erythema of the left anterior dent. Area is slightly warm compared to surrounding tissue. Area does shania. He has a small area of dry flaky skin over the distal aspect which may be an entrance point for cellulitis. Neuro oriented x3 and no sensory deficits noted Sensorium / Orientation: alert Motor Exam: strength 5/5 throughout Psych mental status grossly normal MDM MDM Treatment and Re-Evaluation Narrative: Area of erythema is outlined with surgical marker for further monitoring. Patient be started on doxycycline, first dose given here. Discharge Plan Triage Chief Complaint: Lower Extremity Injury ED Provider: Chaya Knight Dx/Rx/DC Orders Clinical Impression: Cellulitis Instructions: ED Cellulitis Prescriptions: New doxycycline monohydrate 100 mg capsule 100 mg PO BID Qty: 20 0RF No Action omeprazole 20 mg capsule,delayed release(DR/EC) 20 mg PO DAILY Qty: 60 1RF Humalog Mix 50-50 KwikPen 100 unit/mL (50-50) insulin pen 70 unit SC BID Rx Instructions: 9 pm: eat a meal, take 40 units insulin 1 am: eat a meal during work break 8 am: eat a meal take 50 units insulin nitroglycerin 0.4 MG tablet 0.4 mg Sublingual Q5M PRN (Reason: Cardiac/Chest Pain) Qty: 10 0RF alfuzosin 10 mg tablet extended release 24 hr 10 mg PO DAILY Qty: 90 3RF Hold Instructions: Resume on 07/26/21. Rx Instructions: administer after the same meal each day (DME) FreeStyle Test Strip See Rx Instructions .ROUTE .MEDSUPPLY Qty: 50 11RF Rx Instructions: check blood glucose daily (DME) blood-glucose meter [FreeStyle System Kit] Kit See Rx Instructions .ROUTE .MEDSUPPLY Qty: 1 0RF Rx Instructions: check blood glucose daily for type 2 DM (DME) lancets [FreeStyle Lancets] 28 gauge misc See Rx Instructions .ROUTE .MEDSUPPLY Qty: 50 11RF Rx Instructions: Check blood glucose daily for type 2 DM (DME) pen needle, diabetic [1st Tier Unifine Pentips Plus] 31 gauge x 3/16 needle See Rx Instructions .ROUTE .MEDSUPPLY Qty: 100 1RF Rx Instructions: use with lantus nightly albuterol sulfate 90 mcg/actuation HFA aerosol inhaler 2 puff inhalation Q4H PRN PRN (Reason: Wheezing) Qty: 1 3RF aspirin 81 mg tablet,chewable 81 mg PO DAILY@0800 Qty: 90 3RF atenolol 50 mg tablet 50 mg PO DAILY Qty: 90 3RF atorvastatin 40 mg tablet 40 mg PO QHS Qty: 90 3RF budesonide-formoterol [Symbicort] 160-4.5 mcg/actuation HFA aerosol inhaler 2 puff INHALATION BID Qty: 10.2 3RF buspirone 5 mg tablet 5 mg PO BID Qty: 180 1RF clopidogrel 75 mg tablet 75 mg PO DAILY Qty: 90 3RF fenofibrate micronized 134 mg capsule 134 mg PO DAILY Qty: 90 3RF isosorbide mononitrate 30 mg tablet extended release 24 hr See Rx Instructions .ROUTE .COMPLEX Qty: 90 3RF Dose Instruction: TAKE 1 TABLET BY MOUTH EVERY DAY Rx Instructions: TAKE 1 TABLET BY MOUTH EVERY DAY metformin 1,000 mg tablet 1,000 mg PO BID Qty: 180 1RF losartan 25 mg tablet 25 mg PO DAILY Qty: 90 3RF Primary Care Provider: Ant Nuñez Referrals: Ant Nuñez, [Primary Care Provider] - 1-2 Weeks Disposition Disposition: Home, Self Care
[2022-03-01] MEDS: Doxycycline 100 MG CAPSULE PO (22:50)
== END 2022-03-01 22:53 | disposition home or self-care (01) ==
PROVIDERS: Emergency Provider Emergency Medicine; PCP Family Medicine; Visit Provider Emergency Medicine
DX: L03.90 Cellulitis, unspecified (principal); J43.9 Emphysema, unspecified; E11.9 Type 2 diabetes mellitus without complications; I10 Essential (primary) hypertension; E78.5 Hyperlipidemia, unspecified; I25.10 Atherosclerotic heart disease of native coronary artery without angina pectoris; F17.210 Nicotine dependence, cigarettes, uncomplicated
CPT/HCPCS: 99283

== ENCOUNTER 2022-03-11 12:58 | Outpatient (CLI) | payer MEDICAID, SELFPAY ==
--- NOTE | 2022-03-11 12:59 | CT_ITS ---
STUDY: LOW DOSE CT LUNG CANCER SCREENING REASON FOR EXAM: Male, 62 years old. Lung cancer screening -- and gt;30 pk yr hx; current smoker; asymptomatic RADIATION DOSAGE (If Supplied By Facility): CTDIvol = ( 3.02 ) mGy, DLP = ( 97.04 ) mGycm TECHNIQUE: No contrast was administered. Low dose technique was utilized (average mAS-38 and kVp 120). 1.25 mm axial source images with a slice interval of 1.25-mm were reconstructed in lung windows. 2.5 mm axial source images with a slice interval of 2.5-mm were reconstructed in lung windows. 5.0 mm axial source images with a slice interval of 5.0-mm were reconstructed in soft tissue windows. COMPARISON: Comparison is made with prior study 01/29/2021. NODULES: No suspicious nodules are seen. Emphysema: Mild degree of emphysematous changes. Stable minimal linear scarring in the anterior aspect of the right upper lobe as well as at the lung bases. Endobronchial lesion: None Aorta: Atherosclerotic plaque formation of the aortic arch. CORONARY ARTERIES: Coronary artery calcification is seen. Heart: Prior CABG Pulmonary artery: Unremarkable Mediastinal nodes: Small benign appearing mediastinal lymph nodes. Other chest and abdominal findings: CT/Low Dose CT Lung Screening IMPRESSION: Lung-RADS category 2 - Continue annual screening with LDCT in 12 months. IMPORTANT NOTES FOR USE: ACR Lung-RADS Version 1.1 Assessment Categories Release Date: 2018 Category: Coded 0-4 bases on nodule(s) with highest degree of suspicion. Negative screen is defined as categories 1 and 2; a positive screen is defined as categories 3 and 4. Category 3 and 4A nodules that are unchanged on interval CT should be coded as category 2, and individuals returned to screening in 12 months. Category 4X: Category 3 or 4 nodules with additional imaging findings that increase the suspicion of lung cancer, such as spiculation, GGN that doubles in size in 1 year, enlarged lymph notes, etc. Category Modifiers: S (significant finding unrelated to lung cancer) Electronically Signed: Sam Duncan MD at 14:09 EST ,
== END 2022-03-11 23:59 | disposition home or self-care (01) ==
LOC: CT 12:59
PROVIDERS: PCP Family Medicine; Referring Provider Nurse Practitioner Family; Visit Provider Nurse Practitioner Family
DX: Z12.2 Encounter for screening for malignant neoplasm of respiratory organs (principal); I70.0 Atherosclerosis of aorta; F17.210 Nicotine dependence, cigarettes, uncomplicated; R91.8 Other nonspecific abnormal finding of lung field
CPT/HCPCS: 71271

== ENCOUNTER 2022-04-18 01:35 | Inpatient (IN) | payer MEDICAID, SELFPAY ==
[2022-04-18] VITALS (25 sets, daily range): BP systolic 108–164; BP diastolic 54–96; PULSE 69–91; RESP 14–24; TEMP 36.5–36.7; O2SAT 90–97; BMI 28.6
--- NOTE | 2022-04-18 01:48 | EKG12_ITS ---
Test Reason : CP Blood Pressure : / mmHG Vent. Rate : 085 BPM Atrial Rate : 085 BPM P-R Int : 130 ms QRS Dur : 078 ms QT Int : 360 ms P-R-T Axes : 061 031 118 degrees QTc Int : 428 ms Normal sinus rhythm ST & T wave abnormality, consider lateral ischemia Abnormal ECG Confirmed by AURELIANO WESTBROOK, JULIO CÉSAR ([id number]), graphic editor LISS JARVIS ([id number]) on 04/21/2022 11:36:45 AM Referred By: VANESA Confirmed By:JULIO CÉSAR BEDOYA MD
--- NOTE | 2022-04-18 01:49 | RAD_ITS ---
STUDY: X-RAY CHEST REASON FOR EXAM: Male, 62 years old patient with chest pain. TECHNIQUE: PA and lateral views of the chest. COMPARISON: December 09, 2021. FINDINGS: Cardiac monitoring leads are present. The patient has had a sternotomy. The lungs are underexpanded. There is bilateral perihilar interstitial thickening. The interstitial thickening appears to be more severe than it was on the previous radiograph. There is no demonstrated pleural abnormality. Normal size heart. Normal mediastinum and radha. Normal visualized pulmonary arteries. There is atherosclerotic calcification of the aortic arch with tortuosity. There is demineralization of the osseous structures. There is increased thoracic kyphosis. There are multilevel degenerative changes of the thoracic spine. Normal visualized ribs, clavicles, and shoulders. There is no demonstrated abnormality of the visualized soft tissue structures of the upper abdomen. RAD/Chest PA and Lateral IMPRESSION: Findings suggest possible acute exacerbation of reactive airway disease, viral infection or mycoplasma pneumonitis. Electronically Signed: Nicky Simmons MD at 2:46 EST ,
--- NOTE | 2022-04-18 01:58 | EDS_ITS ---
HPI History of Present Illness Chief Complaint: Chest Pain Informant: patient Narrative Narrative: Patient is a 62-year-old male with extensive cardiac history including coronary artery disease, continued tobacco use, diabetes mellitus, hypertension, history of CABG and COPD presenting with sharp chest pain. Patient states he has pain in the center of his chest that woke him up from sleep. It is milder now than it was when he first woke up. Does not radiate. No associated nausea, diaphoresis, jaw or arm pain. Does not feel short of breath. States he felt fine earlier today. Denies any swelling of his legs. Never had pain like this before. Did not take anything prior to arrival. No other complaints at this time. [facility] Medical History Arthritis Asthma Atherosclerosis of coronary artery of [place] heart without angina pectoris Emphysema lung Encounter for screening for malignant neoplasm of lung in current smoker with 30 pack year history or greater Essential (primary) hypertension GERD (gastroesophageal reflux disease) History of non-ST elevation myocardial infarction (NSTEMI) (06/11/18) Hyperlipidemia Insulin dependent diabetes mellitus Nicotine dependence Pancreatitis Stenosis of right carotid artery Type 2 diabetes mellitus Home Medications nitroglycerin 0.4 mg sublingual tablet 0.4 mg sublingual Q5M PRN Cardiac/Chest Pain #10 tabs 06/12/18 [Rx Last Taken Unknown] alfuzosin 10 mg tablet,extended release 24 hr 10 mg PO DAILY #90 tabs 04/02/21 [Rx Last Taken Unknown] blood sugar diagnostic (FreeStyle Test strips) #50 ea 04/02/21 [Rx Last Taken Unknown] blood-glucose meter (FreeStyle System Kit) #1 ea 04/02/21 [Rx Last Taken Unknown] lancets 28 gauge (FreeStyle Lancets) #50 ea 04/02/21 [Rx Last Taken Unknown] pen needle, diabetic 31 gauge x 3/16 (1st Tier Unifine Pentips Plus) #100 ea 04/02/21 [Rx Last Taken Unknown] albuterol sulfate 90 mcg/actuation aerosol inhaler 2 puff inhalation Q4H PRN PRN Wheezing ##1 11/01/21 [Rx Last Taken Unknown] aspirin 81 mg chewable tablet 81 mg PO DAILY@0800 health maintenance #90 tabs 11/01/21 [Rx Last Taken Unknown] atenolol 50 mg tablet 50 mg PO DAILY #90 tabs 11/01/21 [Rx Last Taken Unknown] atorvastatin 40 mg tablet 40 mg PO QHS #90 tabs 11/01/21 [Rx Last Taken Unknown] budesonide-formoterol HFA 160 mcg-4.5 mcg/actuation aerosol inhaler (Symbicort) 2 puff inhalation BID #10.2 grams 11/01/21 [Rx Last Taken Unknown] buspirone 5 mg tablet 5 mg PO BID anxiety #180 tabs 11/01/21 [Rx Last Taken Unknown] clopidogrel 75 mg tablet 75 mg PO DAILY #90 tabs 11/01/21 [Rx Last Taken Unknown] fenofibrate micronized 134 mg capsule 134 mg PO DAILY lowers cholesterol #90 caps 11/01/21 [Rx Last Taken Unknown] isosorbide mononitrate 30 mg tablet,extended release 24 hr See Rx Instructions .Route .COMPLEX #90 tabs 11/01/21 [Rx Last Taken Unknown] losartan 25 mg tablet 25 mg PO DAILY #90 tabs 11/01/21 [Rx Last Taken Unknown] metformin 1,000 mg tablet 1,000 mg PO BID #180 tabs 11/01/21 [Rx Last Taken Unknown] omeprazole 20 mg capsule,delayed release 20 mg PO DAILY #60 caps 01/01/22 [Rx Last Taken Unknown] insulin lispro protamine-lispro 100 unit/mL (50-50) subcutaneous pen (Humalog Mix 50-50 KwikPen) 70 unit subcut BID 01/08/22 [History Last Taken Unknown] doxycycline monohydrate 100 mg capsule 100 mg PO BID #20 caps 03/01/22 [Rx Last Taken Unknown] insulin glargine 100 unit/mL (3 mL) subcutaneous pen 20 unit (0.2 mL) subcut ONCE #15 mL 04/09/22 [Rx Last Taken Unknown] Allergy/AdvReac Type Severity Reaction Status Date / Time amoxicillin Allergy Angioedema Verified 04/09/22 13:57 lindane Allergy Rash Verified 04/09/22 13:57 Family History Father Asthma Alcoholism Arthritis Heart disease Hypertension High cholesterol CVA (cerebral vascular accident) Lung cancer Grandfather Myocardial infarction Surgical History H/O coronary artery bypass surgery (2006) History of carotid endarterectomy (01/06/14) History of hernia repair History of left heart catheterization (06/11/18) Social History Smoking Status: Current every day smoker tobacco type: cigarettes Tobacco: How many years used: 45 Electronic Cigarette Use: not used second hand exposure: Yes quit status: considering quitting counseling given: provider counseling alcohol intake: never substance use type: does not use caffeine: Yes Type: coffee Number of servings: 5 what type of physical activity do you participate in: none ROS ROS ED Constitutional Constitutional ED: Denies chills or fever(s) Eyes Eyes: Reports none ENT ENT ED: Denies rhinorrhea or sore throat Cardiovascular Cardiovascular: Reports as per HPI and chest pain; Denies palpitations Respiratory/Chest Respiratory/Chest: Denies cough, dyspnea or dyspnea on exertion Gastrointestinal Gastrointestinal: Denies nausea or vomiting Musculoskeletal Musculoskeletal: Denies arthralgias or myalgias Integumentary Denies rash Neurologic Neurologic: Denies headache(s) or paresthesias Hematologic/Lymphatic Hematologic/Lymphatic: Denies easy bleeding or easy bruising EXAM Physical Exam Const Vital Signs: 04/18/22 01:36 04/18/22 01:40 04/18/22 01:58 Temperature 97.7 F L Temperature Source Oral Pulse Rate 90 Respiratory Rate 22 H Respiratory Effort Normal Non-Labored Blood Pressure 164/84 H Blood Pressure Mean 110 Pulse Ox 97 Oxygen Delivery Method Room Air Room Air 04/18/22 02:13 04/18/22 02:23 04/18/22 02:41 Temperature Temperature Source Pulse Rate 91 89 85 Respiratory Rate 19 H Respiratory Effort Blood Pressure 135/65 H 133/66 H 113/59 L Blood Pressure Mean 77 Pulse Ox 93 Oxygen Delivery Method Room Air 04/18/22 03:08 04/18/22 03:00 04/18/22 04:00 Temperature Temperature Source Pulse Rate 84 90 83 Respiratory Rate 18 18 Respiratory Effort Blood Pressure 132/70 H 108/55 L 130/61 H Blood Pressure Mean 72 84 Pulse Ox 94 93 Oxygen Delivery Method Room Air Room Air 04/18/22 04:46 Temperature Temperature Source Pulse Rate 77 Respiratory Rate 18 Respiratory Effort Blood Pressure 130/59 H Blood Pressure Mean 82 Pulse Ox 93 Oxygen Delivery Method Room Air Positive well nourished and well developed General Appearance ED: well developed and NAD HEENT Reports moist mucous membranes Eyes PERRL and EOMs intact bilaterally Neck supple Chest Wall inspection of chest normal and palpation of chest normal Resp normal respiratory effort Resp Narrative: Slight crackles at the left base. Auscultation: Negative for rales, rhonchi or wheezes Cardio regular rate, regular rhythm and no murmurs GI normal to inspection, nondistended, normoactive bowel sounds Extremity normal to inspection General Extremety ED: Negative for edema General Extremity: Negative for edema Neuro oriented x3 Sensorium / Orientation: awake Motor Exam: Negative for general weakness Psych mental status grossly normal Skin no rashes or lesions noted Heart Score History: Moderately Suspicious ECG: Significant ST-Depression Age: >45 - <65 years Risk Factors: >/= 3 Risk Factors or History of CAD Score: 6 MDM MDM MDM Narrative Medical decision making narrative: Patient presents for sudden onset of chest pain. He has multiple cardiac risk factors and EKG changes. EKG changes are not consistent with ST elevation PR so stimulator is not called. Last cardiac catheterization was in 2019. This is independently reviewed by myself and shows multivessel disease with severe calcification/75% stenosis of the left main artery, occluded proximal LAD, occluded RCA patent grafts and moderate calcification of the circumflex artery. No stenting was done at this time and he was treated medically. Patient has an uptrending troponin from 44-241. His pain is improved with ni troglycerin and Nitropaste is placed. Case is discussed with cardiology on- call, Dr. Guerrier, who is agreeable with starting a heparin drip and patient will be seen in the morning by cardiology. Patient is agreeable this plan of care. He is admitted and case discussed with hospitalist. Chest x-ray on my interpretation shows chronic changes. It is read as possible acute exacerbation of reactive airway, viral infection or mycoplasma pneumonitis by radiologist however patient has no respiratory symptoms and feels that his breathing is at his baseline with no changes in cough, sputum production, shortness of breath or any respiratory symptoms. He does not have a leukocytosis or signs of infection. Will defer treatment at this time. Lab Data Attestation: I reviewed the patient's lab results. Labs: Laboratory Results - last 24 hr 04/18/22 04/18/22 04/18/22 01:43 01:43 04:00 WBC 8.1 RBC 4.98 Hgb 16.4 Hct 48.5 MCV 97.4 H MCH 32.9 H MCHC 33.8 RDW Std Deviation 44.8 H RDW Coeff of Maycol 12.4 Plt Count 254 MPV 10.2 Immature Gran % (Auto) 0.400 Neut % (Auto) 57.7 Lymph % (Auto) 28.6 Luce % (Auto) 8.5 Eos % (Auto) 4.3 Baso % (Auto) 0.5 Absolute Neuts (auto) 4.7 Absolute Lymphs (auto) 2.31 Nucleated RBC % 0 Sodium 136 Potassium 3.9 Chloride 103 Carbon Dioxide 28.0 Anion Gap 5 BUN 18 Creatinine 1.05 Estim Creat Clear Calc 77.69 Est GFR (MDRD) Af Amer 92 Est GFR (MDRD) Non-Af 76 BUN/Creatinine Ratio 17.1 Glucose 252 H Calcium 8.5 Magnesium 1.8 Troponin I High Sens 44 241 H* Radiography Chest X-Ray - ED: 2 View, Read by ED Physician, Read by Radiologist, No Acute Disease and Chronic Changes Diagnostic Testing: Clinical Impression(s) from Imaging Studies Chest X-Ray 04/18/22 01:49 IMPRESSION: Findings suggest possible acute exacerbation of reactive airway disease, viral infection or mycoplasma pneumonitis. Electronically Signed: Nicky Simmons MD at 2:46 EST Reading Location ID and State: [address] [place] [address] , Service support , Rhythm Strip Rhythm Strip: Sinus Rhythm Rate: 85 Ectopy: None EKG Initial EKG: Attestation: I personally reviewed and interpreted this EKG as follows: Interpretation: Sinus Rhythm Comments: Normal sinus rhythm at a rate of 85 bpm Normal axis Normal intervals T wave inversions in 1, aVL, V5 through V6 with ST depression in V3 and V4 with no reciprocal changes Follow-up EKG: Attestation: I personally reviewed and interpreted this EKG as follows: Interpretation: Sinus Rhythm Comments: Normal sinus rhythm at a rate of 83 bpm Normal axis Continue T wave inversions in V3 through V6 however improved compared to prior EKG Critical Care Time Critical Care Time: Yes Critical care time (excluding procedures): 30-74 minutes (30), Discussing w/Patient &/or Family/Access Developer, Discussing w/Consultants and Arranging Admission or Transfer Discharge Plan Triage Chief Complaint: Chest Pain ED Provider: Maribell Moura Dx/Rx/DC Orders Clinical Impression: NSTEMI, initial episode of care, Insulin dependent diabetes mellitus, Nicotine dependence Primary Care Provider: Ant Nuñez Disposition Disposition: Acute Care Hospital [facility]
[2022-04-18 02:04] LABS: Absolute Lymphocyte Count 2.31 X10^3/uL (0.83-4.51); Absolute Neutrophil Count 4.7 X10^3/uL (2.0-7.7); Basophil# 0.04 X10^3/uL; Basophil% 0.5 % (0-1); Eosinophil# 0.35 X10^3/uL; Eosinophils% 4.3 % (0-5); Hematocrit 48.5 % (40-54); Hemoglobin 16.4 g/dL (13.0-16.5); Lymphocyte # 2.31 X10^3/ul (0.83-4.51); Lymphocyte % 28.6 % (19-41); Mean Corp Hgb Conc 33.8 g/dL (32-36); Mean Corpuscular Hgb 32.9 pg (27.0-32.0); Mean Corpuscular Volume 97.4 fL (80-94); Mean Platelet Vol. 10.2 fl (6.2-12.0); Monocyte# 0.69 X10^3/uL; Monocyte% 8.5 % (0-10); NRBC Flagged by Analyzer 0 % (0-5); Neutrophil # 4.66 X10^3/uL (2.7-7.7); Neutrophil % 57.7 % (47-70); Platelet Count 254 K/mm3 (150-450); RBC Distribution Width CV 12.4 % (11.6-14.6); RBC Distribution Width SD 44.8 fl (35.1-43.9); Red Blood Count 4.98 M/mm3 (4.6-6.2); White Blood Count 8.1 K/mm3 (4.4-11.0)
[2022-04-18] MEDS: Aspirin 81 MG TAB.CHEW 324 MG PO (02:13)
[2022-04-18] MEDS: Nitroglycerin SL (ED/IMG/CATH) 0.4 MG TABLET SL ×2 (02:13→02:23)
--- NOTE | 2022-04-18 02:23 | EKG12_ITS ---
Test Reason : REPEAT EKG Blood Pressure : / mmHG Vent. Rate : 083 BPM Atrial Rate : 083 BPM P-R Int : 128 ms QRS Dur : 084 ms QT Int : 378 ms P-R-T Axes : 055 025 117 degrees QTc Int : 444 ms Normal sinus rhythm ST & T wave abnormality, consider lateral ischemia Abnormal ECG Confirmed by AURELIANO WESTBROOK, JULIO CÉSAR ([id number]), newspaper copy editor LISS JARVIS ([id number]) on 04/21/2022 11:43:37 AM Referred By: VANESA Confirmed By:JULIO CÉSAR BEDOYA MD
[2022-04-18 03:02] LABS: Anion Gap 5 (5-15); BUN 18 mg/dL (7-18); BUN/Creat Ratio 17.1 RATIO (10-20); Calcium,Total 8.5 mg/dL (8.5-10.1); Chloride 103 mmol/L (98-107); Creatinine, Serum 1.05 mg/dL (0.70-1.30); EST Glomerular Filtration Rate 76 mL/min (>60); Est Glom Filt Rate - Afr Amer 92 mL/min (>60); Estimated Creatinine Clearance 77.69 ml/min; Glucose 252 mg/dL (74-106); Magnesium 1.8 mg/dL (1.6-2.6); Potassium 3.9 mmol/L (3.5-5.1); Sodium Level 136 mmol/L (136-145); Troponin-I HS (w/2H Reflex) 44 pg/mL (3.0-78.0)
[2022-04-18] MEDS: Nitroglycerin Oint 1 INCH PACKET TD (03:08)
[2022-04-18 04:02] LABS: Reflex Troponin-HS? (from REC) Y
[2022-04-18 04:42] LABS: Troponin-I HS 241 pg/mL (3.0-78.0)
--- NOTE | 2022-04-18 04:46 | HP.PCM.HOS_ITS ---
HPI - General General Date of Admission: 04/18/22 Date of Service: 04/18/22 Chief Complaint: chest pain HPI Narrative KANA MEJIA, is a 62 M with a PMh as outlined who presents via the ED on 04/18/2022 with a complaitn of chest pain. Pain was sharp, retrosternal and woke him up from sleep. It didnt radiate to his jaw or arm, and had no aggravating or relieving factors. HE denied any nausea, dizziness, fever or chills or any other symptoms. Review of systems was otherwise negative. Vitals were temp of 97.7F, KS of 77, BP of 130/59 and RR of 18. He was saturating at 93% on room air. CBC and BMP were unremarkable. Initial troponin was negative but the delta troonin trended up to 241. EKG showed no acute ST changes. He is being admitted to be managed for nonstemi. [facility] Medical History Arthritis Asthma Atherosclerosis of coronary artery of [place] heart without angina pectoris Emphysema lung Encounter for screening for malignant neoplasm of lung in current smoker with 30 pack year history or greater Essential (primary) hypertension GERD (gastroesophageal reflux disease) History of non-ST elevation myocardial infarction (NSTEMI) (06/11/18) Hyperlipidemia Insulin dependent diabetes mellitus Nicotine dependence Pancreatitis Stenosis of right carotid artery Type 2 diabetes mellitus Home Medications nitroglycerin 0.4 mg sublingual tablet 0.4 mg sublingual Q5M PRN Cardiac/Chest Pain #10 tabs 06/12/18 [Rx Last Taken Unknown] alfuzosin 10 mg tablet,extended release 24 hr 10 mg PO DAILY #90 tabs 04/02/21 [Rx Last Taken Unknown] blood sugar diagnostic (FreeStyle Test strips) #50 ea 04/02/21 [Rx Last Taken Unknown] blood-glucose meter (FreeStyle System Kit) #1 ea 04/02/21 [Rx Last Taken Unknown] lancets 28 gauge (FreeStyle Lancets) #50 ea 04/02/21 [Rx Last Taken Unknown] pen needle, diabetic 31 gauge x 3/16 (1st Tier Unifine Pentips Plus) #100 ea 04/02/21 [Rx Last Taken Unknown] albuterol sulfate 90 mcg/actuation aerosol inhaler 2 puff inhalation Q4H PRN PRN Wheezing ##1 11/01/21 [Rx Last Taken Unknown] aspirin 81 mg chewable tablet 81 mg PO DAILY@0800 health maintenance #90 tabs 11/01/21 [Rx Last Taken Unknown] atenolol 50 mg tablet 50 mg PO DAILY #90 tabs 11/01/21 [Rx Last Taken Unknown] atorvastatin 40 mg tablet 40 mg PO QHS #90 tabs 11/01/21 [Rx Last Taken Unknown] budesonide-formoterol HFA 160 mcg-4.5 mcg/actuation aerosol inhaler (Symbicort) 2 puff inhalation BID #10.2 grams 11/01/21 [Rx Last Taken Unknown] buspirone 5 mg tablet 5 mg PO BID anxiety #180 tabs 11/01/21 [Rx Last Taken Unknown] clopidogrel 75 mg tablet 75 mg PO DAILY #90 tabs 11/01/21 [Rx Last Taken Unknown] fenofibrate micronized 134 mg capsule 134 mg PO DAILY lowers cholesterol #90 caps 11/01/21 [Rx Last Taken Unknown] isosorbide mononitrate 30 mg tablet,extended release 24 hr See Rx Instructions .Route .COMPLEX #90 tabs 11/01/21 [Rx Last Taken Unknown] losartan 25 mg tablet 25 mg PO DAILY #90 tabs 11/01/21 [Rx Last Taken Unknown] metformin 1,000 mg tablet 1,000 mg PO BID #180 tabs 11/01/21 [Rx Last Taken Unknown] omeprazole 20 mg capsule,delayed release 20 mg PO DAILY #60 caps 01/01/22 [Rx Last Taken Unknown] insulin lispro protamine-lispro 100 unit/mL (50-50) subcutaneous pen (Humalog Mix 50-50 KwikPen) 70 unit subcut BID 01/08/22 [History Last Taken Unknown] doxycycline monohydrate 100 mg capsule 100 mg PO BID #20 caps 03/01/22 [Rx Last Taken Unknown] insulin glargine 100 unit/mL (3 mL) subcutaneous pen 20 unit (0.2 mL) subcut ONCE #15 mL 04/09/22 [Rx Last Taken Unknown] Allergy/AdvReac Type Severity Reaction Status Date / Time amoxicillin Allergy Angioedema Verified 04/09/22 13:57 lindane Allergy Rash Verified 04/09/22 13:57 Family History Father Asthma Alcoholism Arthritis Heart disease Hypertension High cholesterol CVA (cerebral vascular accident) Lung cancer Grandfather Myocardial infarction Surgical History H/O coronary artery bypass surgery (2006) History of carotid endarterectomy (01/06/14) History of hernia repair History of left heart catheterization (06/11/18) Social History Smoking Status: Current every day smoker tobacco type: cigarettes Tobacco: How many years used: 45 Electronic Cigarette Use: not used second hand exposure: Yes quit status: considering quitting counseling given: provider counseling alcohol intake: never substance use type: does not use caffeine: Yes Type: coffee Number of servings: 5 what type of physical activity do you participate in: none ROS Constitutional Constitutional: Denies anorexia, chills, fatigue, fever(s) or weakness Eyes Eyes: Denies change in vision ENT HEENT: Denies dysphagia, headache(s), nasal congestion, nasal discharge or sinus pressure Cardiovascular Cardiovascular: Reports chest pain; Denies dyspnea on exertion, edema, lightheadedness, orthopnea, palpitations, paroxysmal nocturnal dyspnea, rapid heart rate or syncope Respiratory/Chest Respiratory/Chest: Denies cough, dyspnea, productive cough, shortness of breath at rest, shortness of breath with exertion or wheezing Gastrointestinal Gastrointestinal: Denies abdominal pain, constipation, nausea or vomiting Genitourinary Genitourinary: Denies burning urination or dysuria Musculoskeletal Musculoskeletal: Denies arthralgias Neurologic Neurologic: Denies confusion, dizziness, focal weakness, headache(s), seizures o r syncope Psychiatric Psychiatric: Denies anxiety Vital Signs Vital Signs Vital Signs: 04/18/22 01:36 04/18/22 01:40 04/18/22 01:58 Temperature 97.7 F L Temperature Source Oral Pulse Rate 90 Respiratory Rate 22 H Respiratory Effort Normal Non-Labored Blood Pressure 164/84 H Blood Pressure Mean 110 Pulse Ox 97 Oxygen Delivery Method Room Air Room Air 04/18/22 02:13 04/18/22 02:23 04/18/22 02:41 Temperature Temperature Source Pulse Rate 91 89 85 Respiratory Rate 19 H Respiratory Effort Blood Pressure 135/65 H 133/66 H 113/59 L Blood Pressure Mean 77 Pulse Ox 93 Oxygen Delivery Method Room Air 04/18/22 03:08 04/18/22 03:00 Temperature Temperature Source Pulse Rate 84 90 Respiratory Rate 18 Respiratory Effort Blood Pressure 132/70 H 108/55 L Blood Pressure Mean 72 Pulse Ox 94 Oxygen Delivery Method Room Air Weight Weight: 205 lb 7.533 oz Body Mass Index (BMI) 28.6 Physical Exam Const alert, oriented x3 and no apparent distress General Appearance: cooperative HEENT normocephalic, head/scalp atraumatic, hearing grossly normal bilaterally and moist oral mucous membranes Mouth: oral and palatal mucosa normal and moist mucous membranes abnormal Eyes PERRL, EOMs intact bilaterally and conjunctivae normal Neck no lymphadenopathy and supple Resp normal respiratory effort, no retractions, no use of accessory muscles and clear to auscultation bilaterally Cardio regular rate, regular rhythm, S1 normal heart sound, S2 normal heart sound and no murmurs GI normal to inspection, nondistended, normoactive bowel sounds, soft to palpation, non-tender and non-distended Extremity normal to inspection, full ROM and no clubbing, cyanosis or edema Neuro oriented x3, CN's II-XII intact bilaterally, moves all extremities and no focal motor deficits Sensorium / Orientation: awake and alert Motor Exam: strength 5/5 throughout Psych affect normal Results Lab / Micro Data Result Diagrams: 04/18/22 01:43 04/18/22 01:43 Labs: Laboratory Results - last 24 hr 04/18/22 01:43: WBC 8.1, RBC 4.98, Hgb 16.4, Hct 48.5, MCV 97.4 H, MCH 32.9 H, MCHC 33.8, RDW Std Deviation 44.8 H, RDW Coeff of Maycol 12.4, Plt Count 254, MPV 10.2, Immature Gran % (Auto) 0.400, Neut % (Auto) 57.7, Lymph % (Auto) 28.6, [place] % (Auto) 8.5, Eos % (Auto) 4.3, Baso % (Auto) 0.5, Absolute Neuts (auto) 4.7, Absolute Lymphs (auto) 2.31, Nucleated RBC % 0 04/18/22 01:43: Sodium 136, Potassium 3.9, Chloride 103, Carbon Dioxide 28.0, Anion Gap 5, BUN 18, Creatinine 1.05, Estim Creat Clear Calc 77.69, Est GFR (MDRD) Af Amer 92, Est GFR (MDRD) Non-Af 76, BUN/Creatinine Ratio 17.1, Glucose 252 H, Calcium 8.5, Magnesium 1.8, Troponin I High Sens 44 04/18/22 04:00: Troponin I High Sens 241 H* Rhythm Strip Rhythm Strip: Sinus Rhythm Rate: 85 Ectopy: None Radiology Impression Chest X-Ray 04/18/22 01:49 IMPRESSION: Findings suggest possible acute exacerbation of reactive airway disease, viral infection or mycoplasma pneumonitis. Electronically Signed: Nicky Simmons MD at 2:46 EST Reading Location ID and State: [facility] / [place] , Service support , Assessment & Plan Assessment/Plan (1) NSTEMI, initial episode of care: PLAN: Plan #Nonstemi * admit to PCU * initial troponin was negative, but trended upwards to 241. * EKG showed some St depressions in lateral leads which improved after he was gi simran SL nitroglycerin * consult cardiology * started on heparin drip * SL nitroglycerin prn * PO aspirin and plavix, which he is on already. High intensity statin * 2D echo * cardiology consulted #History of CAD s/p CABG * still smokes. Now being managed for nonstemi * on aspirin, statin and plavix as well as fenofibrate * on imdur * #Hyperlipidemia: on statin #COPD: not in exacerbation. Breathing treatment with bronchodilators. Titrate oxygen to maintain sats >90% #TYpe 2 diabetes mellitus: on ISS. Accuchecks ACHS. On lantus 20 units daily. Hold metformin DVT prophylaxis: already on heparin drip COde status: full code * Patient counseled extensively about different types of CODE STATUS including full code, DNR CCA and DNR CCA. Patient elects to be full code. * Total [id number] time 17 minutes. Charges/Coding Visit Charges Inpatient E&M: 68189 Init Hosp L3 Procedures Hospitalists Procedures: 66884 Advncd Care Plan 30 Min
[2022-04-18 05:14] LABS: Prothrombin Time (Protime)PT. 12.3 SECONDS (11.7-14.9)
[2022-04-18 05:15] LABS: Partial Thromboplast Time 25.6 Seconds (24.1-36.2)
[2022-04-18] MEDS: HEPARIN/D5w 25,000 UNITS 25,000 UNITS/250 ML IV.SOLN. 10 UNITS CONT INF (05:48)
[2022-04-18] MEDS: Heparin Injection (Vial) 5,000 UNIT/ML VIAL 4000 UNIT IV (05:49)
[2022-04-18] MEDS: Insulin Lispro 100 UNIT/ML INSULN.PEN SC ×4 (06:11→20:30)
[2022-04-18 06:30] LABS: Bedside Glucose 193 mg/dL (74-106)
--- NOTE | 2022-04-18 07:18 | PN.HOSP_ITS ---
Subjective Subjective Follow-up acute non-STEMI Objective Data Objective Data Vital Signs: Vital Signs Temp Pulse Resp BP Pulse Ox O2 Del Method 98 F 80 16 156/85 H 92 Room Air 04/18/22 06:21 04/18/22 06:21 04/18/22 06:21 04/18/22 06:21 04/18/22 06:21 04/18/22 06:21 Oxygen Delivery Method Room Air Weight: 93.4 kg Body Mass Index (BMI) 28.6 Lab / Micro Data Result Diagrams: 04/18/22 01:43 04/18/22 01:43 Labs: Laboratory Results - last 24 hr 04/18/22 01:43: WBC 8.1, RBC 4.98, Hgb 16.4, Hct 48.5, MCV 97.4 H, MCH 32.9 H, MCHC 33.8, RDW Std Deviation 44.8 H, RDW Coeff of Maycol 12.4, Plt Count 254, MPV 10.2, Immature Gran % (Auto) 0.400, Neut % (Auto) 57.7, Lymph % (Auto) 28.6, [place] % (Auto) 8.5, Eos % (Auto) 4.3, Baso % (Auto) 0.5, Absolute Neuts (auto) 4.7, Absolute Lymphs (auto) 2.31, Nucleated RBC % 0 04/18/22 01:43: Sodium 136, Potassium 3.9, Chloride 103, Carbon Dioxide 28.0, Anion Gap 5, BUN 18, Creatinine 1.05, Estim Creat Clear Calc 77.69, Est GFR (MDRD) Af Amer 92, Est GFR (MDRD) Non-Af 76, BUN/Creatinine Ratio 17.1, Glucose 252 H, Calcium 8.5, Magnesium 1.8, Troponin I High Sens 44 04/18/22 04:00: Troponin I High Sens 241 H* 04/18/22 05:00: PT 12.3, INR 1.0, APTT 25.6 04/18/22 06:09: POC Glucose 193 H Radiography Diagnostic Testing: Radiology Impression Chest X-Ray 04/18/22 01:49 IMPRESSION: Findings suggest possible acute exacerbation of reactive airway disease, viral infection or mycoplasma pneumonitis. Electronically Signed: Nicky Simmons MD at 2:46 EST , Rhythm Strip Rhythm Strip: Sinus Rhythm Rate: 85 Ectopy: None Physical Exam Narrative GENERAL: cooperative HEENT: Atraumatic; normocephalic EYES; Anicteric, Normal Conjunctiva NECK; supple, normal thyroid, RESPIRATORY: Diminished to auscultation CARDIOVASCULAR: Regular S1 S2, GI: soft, normoactive bowel sounds, : No Renal angle tenderness; EXTREMITIES: No edema, no clubbing, MUSCULOSKELETAL: no muscle wasting NEURO: Awake; no lateralizing signs. SKIN: No Rash PSYCH; Flat affect Assessment & Plan Assessment/Plan (1) NSTEMI, initial episode of care: PLAN: Plan Patient is a 62-year-old gentleman presented with chest pain found to have elevated troponin consistent with acute non-STEMI admitted to the intensive care unit for further management 1. Acute non-STEMI The patient has been admitted to a monitored bed treatment initiated per protocol with dual antiplatelet therapy heparin high-dose statin.. As part of his management 2D echo was ordered and consultation placed to cardiology Case discussed with Dr. Quinn plans for patient to undergo left heart catheterization with intervention if needed 2. Coronary artery disease ? With previous CABG patient is on recommended medications including aspirin statin therapy and Plavix as well as nitrate 3. Dyslipidemia -Patient is on statin therapy, continued at home dose 4. COPD ? Currently not in exacerbation did continue with patient home bronchodilator treatment regimen 5. Diabetes mellitus type 2 ? Patient metformin held in anticipation of his left heart catheterization please on Accu-Cheks before meals and at bedtime with sliding scale coverage 6. Tobacco dependence - Counseled on cessation, offered nicotine patch for tobacco cravings 7. DVT prophylaxis ? On heparin Time spent in the patient's overall evaluation,decision-making process, review of diagnostic data, adjustment of management, discussion with other providers, nursing nursing and ancillary staff involved in patient's care documentation, 45 minutes minutes Charges/Coding Multi Select Codes Visit Charges Visit Charges: 54659 Subs Hosp L2
--- NOTE | 2022-04-18 08:02 | PCM.CONS.C ---
Assessment & Plan Assessment/Plan (1) NSTEMI, initial episode of care: PLAN: He does presents with recent onset chest discomfort and is noted to have abnormal cardiac enzyme pattern as well as EKG pattern. My recommendation at this time would be for the patient to undergo a left heart catheterization. The risk benefits alternatives have been explained to him he understands and agrees to proceed. Depending on the findings further recommendations will be made. Addendum: Cardiac catheterization performed demonstrated the following: Severe left main coronary disease. Left anterior descending artery which is totally occluded proximally. Left circumflex artery which has totally occluded at the proximal region. Right coronary artery previously known to be totally occluded. Saphenous vein graft to the diagonal vessel which was previously known to be totally occluded. Saphenous vein graft to the obtuse marginal branch which was previously known to be totally occluded. Right internal mammary artery to the posterior descending artery which is patent. Left internal mammary artery to left anterior descending artery which is presumed to be patent. Preserved left ventricular systolic function. Based on the above angiographic findings it appears that his troponin elevation is likely secondary to the circumflex artery occlusion manifest with his lateral ischemic changes. I would recommend aggressive medical therapy. (2) H/O coronary artery bypass surgery: PLAN: He has had coronary bypass surgery as noted above. 2 of his bypass grafts are already occluded. We will continue to follow him regarding the above. (3) Essential (primary) hypertension: PLAN: His blood pressure appears to be suboptimally controlled. We will try and increase his NYDIA inhibitor for better blood pressure control. (4) Hyperlipidemia: QUALIFIERS: Hyperlipidemia type: mixed hyperlipidemia Qualified Code(s): E78.2 - Mixed hyperlipidemia PLAN: He does have a history of hyperlipidemia and will continue high intensity statin for better control of his lipid status. (5) Stenosis of right carotid artery: PLAN: He does have evidence of a previous right carotid endarterectomy. We will continue to follow this with the vascular service. Patient also has evidence of severe peripheral vascular disease with severe disease of the right femoral vessels. HPI Consult Data Date of Consult: 04/18/22 HPI Narrative HPI Narrative: KANA MEJIA, is a 62 M who presents to the emergency room with complaints of chest discomfort. He does have a history of known coronary artery disease and atherosclerotic cardiovascular disease. He underwent coronary artery bypass surgery in 2006 with a left internal mammary artery to the LAD, a right internal mammary artery to the right coronary artery and 2 saphenous vein grafts. These 2 were to the diagonal and obtuse marginal system. He also had a carotid endarterectomy on the right in 2013. He previously underwent a cardiac catheterization in 2019 which demonstrated that his saphenous vein grafts were completely occluded. He presents this time with chest discomfort. He was last seen in the office in 2020. He has had no dizziness or diaphoresis no near syncope or syncope. His EKG demonstrated normal sinus rhythm with lateral ischemic changes and abnormal troponin. Cardiology was called for evaluation and follow-up. Currently he is pain-free. [facility] Medical History Arthritis Asthma Atherosclerosis of coronary artery of [place] heart without angina pectoris Emphysema lung Encounter for screening for malignant neoplasm of lung in current smoker with 30 pack year history or greater Essential (primary) hypertension GERD (gastroesophageal reflux disease) History of non-ST elevation myocardial infarction (NSTEMI) (06/11/18) Hyperlipidemia Insulin dependent diabetes mellitus Nicotine dependence Pancreatitis Stenosis of right carotid artery Type 2 diabetes mellitus Home Medications nitroglycerin 0.4 mg sublingual tablet 0.4 mg sublingual Q5M PRN Cardiac/Chest Pain #10 tabs 06/12/18 [Rx Last Taken Unknown] alfuzosin 10 mg tablet,extended release 24 hr 10 mg PO DAILY #90 tabs 04/02/21 [Rx Last Taken Unknown] blood sugar diagnostic (FreeStyle Test strips) #50 ea 04/02/21 [Rx Last Taken Unknown] blood-glucose meter (FreeStyle System Kit) #1 ea 04/02/21 [Rx Last Taken Unknown] lancets 28 gauge (FreeStyle Lancets) #50 ea 04/02/21 [Rx Last Taken Unknown] pen needle, diabetic 31 gauge x 3/16 (1st Tier Unifine Pentips Plus) #100 ea 04/02/21 [Rx Last Taken Unknown] albuterol sulfate 90 mcg/actuation aerosol inhaler 2 puff inhalation Q4H PRN PRN Wheezing ##1 11/01/21 [Rx Last Taken Unknown] aspirin 81 mg chewable tablet 81 mg PO DAILY@0800 health maintenance #90 tabs 11/01/21 [Rx Last Taken Unknown] atenolol 50 mg tablet 50 mg PO DAILY #90 tabs 11/01/21 [Rx Last Taken Unknown] atorvastatin 40 mg tablet 40 mg PO QHS #90 tabs 11/01/21 [Rx Last Taken Unknown] budesonide-formoterol HFA 160 mcg-4.5 mcg/actuation aerosol inhaler (Symbicort) 2 puff inhalation BID #10.2 grams 11/01/21 [Rx Last Taken Unknown] buspirone 5 mg tablet 5 mg PO BID anxiety #180 tabs 11/01/21 [Rx Last Taken Unknown] clopidogrel 75 mg tablet 75 mg PO DAILY #90 tabs 11/01/21 [Rx Last Taken Unknown] fenofibrate micronized 134 mg capsule 134 mg PO DAILY lowers cholesterol #90 caps 11/01/21 [Rx Last Taken Unknown] isosorbide mononitrate 30 mg tablet,extended release 24 hr See Rx Instructions .Route .COMPLEX #90 tabs 11/01/21 [Rx Last Taken Unknown] losartan 25 mg tablet 25 mg PO DAILY #90 tabs 11/01/21 [Rx Last Taken Unknown] metformin 1,000 mg tablet 1,000 mg PO BID #180 tabs 11/01/21 [Rx Last Taken Unknown] omeprazole 20 mg capsule,delayed release 20 mg PO DAILY #60 caps 01/01/22 [Rx Last Taken Unknown] insulin lispro protamine-lispro 100 unit/mL (50-50) subcutaneous pen (Humalog Mix 50-50 KwikPen) 70 unit subcut BID 01/08/22 [History Last Taken Unknown] doxycycline monohydrate 100 mg capsule 100 mg PO BID #20 caps 03/01/22 [Rx Last Taken Unknown] insulin glargine 100 unit/mL (3 mL) subcutaneous pen 20 unit (0.2 mL) subcut ONCE #15 mL 04/09/22 [Rx Last Taken Unknown] Allergy/AdvReac Type Severity Reaction Status Date / Time amoxicillin Allergy Angioedema Verified 04/09/22 13:57 lindane Allergy Rash Verified 04/09/22 13:57 Family History Father Asthma Alcoholism Arthritis Heart disease Hypertension High cholesterol CVA (cerebral vascular accident) Lung cancer Grandfather Myocardial infarction Surgical History H/O coronary artery bypass surgery (2006) History of carotid endarterectomy (01/06/14) History of hernia repair History of left heart catheterization (06/11/18) Social History Smoking Status: Current every day smoker tobacco type: cigarettes Tobacco: How many years used: 45 Electronic Cigarette Use: not used second hand exposure: Yes quit status: considering quitting counseling given: provider counseling alcohol intake: never substance use type: does not use caffeine: Yes Type: coffee Number of servings: 5 what type of physical activity do you participate in: none Physical Exam Const alert, oriented x3 and no apparent distress General Appearance: cooperative HEENT normocephalic, head/scalp atraumatic, hearing grossly normal bilaterally and moist oral mucous membranes Mouth: oral and palatal mucosa normal and moist mucous membranes abnormal Eyes PERRL, EOMs intact bilaterally and conjunctivae normal Neck no lymphadenopathy and supple Neck Narrative: Carotid endarterectomy scar Resp normal respiratory effort, no retractions, no use of accessory muscles and clear to auscultation bilaterally Cardio regular rate, regular rhythm, S1 normal heart sound, S2 normal heart sound and no murmurs GI normal to inspection, nondistended, normoactive bowel sounds, soft to palpation, non-tender and non-distended Extremity normal to inspection, full ROM and no clubbing, cyanosis or edema Neuro oriented x3, CN's II-XII intact bilaterally, moves all extremities and no focal motor deficits Sensorium / Orientation: awake and alert Motor Exam: strength 5/5 throughout Psych affect normal Risk Stratification Risk Stratification Applicable: Yes Age >/= 65: No >/= 3 CAD Risk Factors (HTN, HLD, DM, family hx of CAD, or current smoker): Yes Aspirin Use in the Past 7 Days: Yes Severe Angina (>/= episodes in 24 hours): No EKG ST Changes >/= 0.5mm: No Positive Cardiac Marker: Yes KELY Risk Stratification Score: 3 KELY % Risk: 13% Risk Objective Data Vital Signs: Vital Signs Temp Pulse Resp BP Pulse Ox O2 Del Method 98 F 80 16 156/85 H 92 Room Air 04/18/22 06:21 04/18/22 06:21 04/18/22 06:21 04/18/22 06:21 04/18/22 06:21 04/18/22 06:21 Oxygen Delivery Method Room Air Weight: 205 lb 14.588 oz Body Mass Index (BMI) 28.6 Lab / Micro Data Result Diagrams: 04/18/22 01:43 04/18/22 01:43 Labs: Laboratory Results - last 24 hr 04/18/22 01:43: WBC 8.1, RBC 4.98, Hgb 16.4, Hct 48.5, MCV 97.4 H, MCH 32.9 H, MCHC 33.8, RDW Std Deviation 44.8 H, RDW Coeff of Maycol 12.4, Plt Count 254, MPV 10.2, Immature Gran % (Auto) 0.400, Neut % (Auto) 57.7, Lymph % (Auto) 28.6, [place] % (Auto) 8.5, Eos % (Auto) 4.3, Baso % (Auto) 0.5, Absolute Neuts (auto) 4.7, Absolute Lymphs (auto) 2.31, Nucleated RBC % 0 04/18/22 01:43: Sodium 136, Potassium 3.9, Chloride 103, Carbon Dioxide 28.0, Anion Gap 5, BUN 18, Creatinine 1.05, Estim Creat Clear Calc 77.69, Est GFR (MDRD) Af Amer 92, Est GFR (MDRD) Non-Af 76, BUN/Creatinine Ratio 17.1, Glucose 252 H, Calcium 8.5, Magnesium 1.8, Troponin I High Sens 44 04/18/22 04:00: Troponin I High Sens 241 H* 04/18/22 05:00: PT 12.3, INR 1.0, APTT 25.6 04/18/22 06:09: POC Glucose 193 H Rhythm Strip Rhythm Strip: Sinus Rhythm Rate: 85 Ectopy: None Cardiology Labs/Tests 04/18/22 01:43: WBC 8.1, RBC 4.98, Hgb 16.4, Hct 48.5, MCV 97.4 H, MCH 32.9 H, MCHC 33.8, Plt Count 254, MPV 10.2, Immature Gran % (Auto) 0.400, Neut % (Auto) 57.7, Lymph % (Auto) 28.6, [place] % (Auto) 8.5, Eos % (Auto) 4.3, Baso % (Auto) 0.5, Absolute Neuts (auto) 4.7, Nucleated RBC % 0 04/18/22 01:43: Sodium 136, Potassium 3.9, Chloride 103, Carbon Dioxide 28.0, Anion Gap 5, BUN 18, Creatinine 1.05, Est GFR (MDRD) Af Amer 92, Est GFR (MDRD) Non-Af 76, BUN/Creatinine Ratio 17.1, Glucose 252 H, Calcium 8.5, Magnesium 1.8 04/18/22 05:00: PT 12.3, INR 1.0, APTT 25.6 Rhythm: EKG: ECHO: Stress Test: Cardiac Cath: PCI: CT Surgery: Holter monitor: EPS: PPM: CXR: Chest CT Scan: Radiography Diagnostic Testing: Radiology Impression Chest X-Ray 04/18/22 01:49 IMPRESSION: Findings suggest possible acute exacerbation of reactive airway disease, viral infection or mycoplasma pneumonitis. Electronically Signed: Nicky Simmons MD at 2:46 EST Reading Location ID and State: [address] [place] [address] , Service support ,
[2022-04-18 09:09] LABS: Troponin-I HS 1889 pg/mL (3.0-78.0)
--- NOTE | 2022-04-18 10:37 | CASEMGMT ---
Tertiary facilities in-network with patient's insurance: [place], [facility] , [facility], Karl [facility] [place], TA[facility]
[2022-04-18 14:46] LABS: Bedside Glucose 182 mg/dL (74-106)
--- NOTE | 2022-04-18 15:00 | CASEMGMT ---
RN CM Face to Face with patient for initial transition planning/care coordination assessment. RN CM introduced self and role at [facility]. Patient lying in bed, alert and oriented, at bedside. Patient willing to participate in assessment and is able to answer all questions appropriately. Care providers, pharmacy, and demographics verified. Patient wishes to discharge home, denies need for home health at this time. Patient states he has no further needs or concerns at this time. CM to follow for discharge planning needs that may arise. PCP: Joaquin Specialists: Kai business office manager Preferred Pharmacy: [facility] Insurance: [employer] Prescription Benefit: yes Living Will/HPOA: none LNOK: Living Arrangements: Patient lives with in a single story home with 3 steps and railing to enter the home. Patient states he is independent at home. Transportation: self, DME/HHC: Patient states he has glucometer with supplies and insulin with supplies. Patient states he smokes 1-1.5 PPD of cigarettes, respiratory to provide tobacco cessation information to patient. Disposition Plan: Patient to discharge home with family support and follow-up plans in place. Shyann WEISS, RN, CM
[2022-04-18 19:26] LABS: Bedside Glucose 308 mg/dL (74-106)
[2022-04-18] MEDS: Atorvastatin Calcium 40 MG Tablet PO (20:30)
[2022-04-18 21:11] LABS: Bedside Glucose 283 mg/dL (74-106)
[2022-04-19 02:30] VITALS: BP 136/82; PULSE 74; RESP 16; TEMP 36.6; O2SAT 98
[2022-04-19 04:19] LABS: Absolute Lymphocyte Count 1.77 X10^3/uL (0.83-4.51); Absolute Neutrophil Count 3.9 X10^3/uL (2.0-7.7); Basophil# 0.03 X10^3/uL; Basophil% 0.5 % (0-1); Eosinophil# 0.28 X10^3/uL; Eosinophils% 4.3 % (0-5); Hemoglobin 15.4 g/dL (13.0-16.5); Lymphocyte # 1.77 X10^3/ul (0.83-4.51); Mean Corp Hgb Conc 33.5 g/dL (32-36); Mean Corpuscular Volume 95.4 fL (80-94); Mean Platelet Vol. 10.2 fl (6.2-12.0); Monocyte# 0.51 X10^3/uL; Monocyte% 7.8 % (0-10); NRBC Flagged by Analyzer 0 % (0-5); Neutrophil # 3.94 X10^3/uL (2.7-7.7); Neutrophil % 59.9 % (47-70); Platelet Count 254 K/mm3 (150-450); RBC Distribution Width CV 12.4 % (11.6-14.6); RBC Distribution Width SD 43.7 fl (35.1-43.9); Red Blood Count 4.82 M/mm3 (4.6-6.2); White Blood Count 6.6 K/mm3 (4.4-11.0)
[2022-04-19 05:12] LABS: Anion Gap 7 (5-15); BUN 16 mg/dL (7-18); BUN/Creat Ratio 15.7 RATIO (10-20); Calcium,Total 8.9 mg/dL (8.5-10.1); Chloride 104 mmol/L (98-107); Creatinine, Serum 1.02 mg/dL (0.70-1.30); EST Glomerular Filtration Rate 79 mL/min (>60); Est Glom Filt Rate - Afr Amer 95 mL/min (>60); Estimated Creatinine Clearance 79.98 ml/min; Glucose 235 mg/dL (74-106); Potassium 4.1 mmol/L (3.5-5.1); Sodium Level 137 mmol/L (136-145)
--- NOTE | 2022-04-19 05:55 | ECHOCS_ITS ---
Version 2 Reason For Study: Chest Pain Procedure This was a 2D Doppler, Color Flow transthoracic echocardiogram. The study was technically difficult. Contrast injection was performed. Exam performed portable in ICU/CCU. Left Ventricle Normal LV size. Left ventricular systolic function is normal. The estimated ejection fraction is 60 %. No regional wall motion abnormalities noted. Right Ventricle Normal RV size. Normal systolic function. Atria Normal left atrium. Normal right atrium. Mitral Valve Normal mitral valve. Tricuspid Valve Normal tricuspid valve. Mild (1+) tricuspid valve insufficiency. Pulmonary artery systolic pressure is 38 mmHg. Aortic Valve Trisinus/trileaflet aortic valve. Mild focal aortic valve calcification. Pulmonic Valve The pulmonic valve is not well visualized. Great Vessels Normal aortic root. The pulmonary artery is normal size. Normal inferior vena cava. Pericardium/Pleural No pericardial effusion. Medication Diluted definity 1ml given slow IV push to enhance endocardial definition. MMode/2D Measurements & Calculations LVIDd: 4.4 cm IVSd: 0.89 cm LA dimension: 3.9 cm LVIDs: 3.0 cm LVPWd: 0.96 cm RVDd: 3.6 cm FS: 32.0 % LAV(MOD-bp): 42.5 ml LA A4 area: 15.1 cm2 RA A4 area: 12.6 cm2 LAV(MOD-bp) Indexed: 19.9 ml/m2 LAV(MOD-sp2): 45.0 ml LAV(MOD-sp4): 38.5 ml Time Measurements MV dec time: 0.16 sec Doppler Measurements & Calculations MV E max dylan: 99.4 cm/sec Lat Peak E' Dylan: 10.2 cm/sec Med Peak E' Dylan: 8.9 cm/sec MV A max dylan: 68.7 cm/sec E/E' lat: 9.8 E/E' med: 11.1 MV E/A: 1.4 MV V2 max: 109.2 cm/sec MV P1/2t max dylan: 109.2 cm/sec Ao V2 max: 113.1 cm/sec MV max P.8 mmHg MV P1/2t: 51.5 msec Ao max P.1 mmHg MV V2 mean: 58.1 cm/sec MV dec slope: 620.8 cm/sec2 Ao V2 mean: 79.3 cm/sec MV mean P.6 mmHg Ao mean P.8 mmHg MV V2 VTI: 25.8 cm MVA(P1/2t): 4.3 cm2 Ao V2 VTI: 26.8 cm AV (velocity ratio): 0.76 LV V1 max: 90.8 cm/sec PA V2 max: 99.5 cm/sec TR max dylan: 288.4 cm/sec LV V1 max P.3 mmHg PA V2 mean: 66.9 cm/sec TR max P.3 mmHg LV V1 mean P.8 mmHg LV V1 mean: 64.1 cm/sec LV V1 VTI: 20.5 cm ECHO/Echo Complete W/ Contrast Interpretation Summary Normal LV size. Left ventricular systolic function is normal. The estimated ejection fraction is 60 %. Mild focal aortic valve calcification. Pulmonary artery systolic pressure is 38 mmHg. Contrast injection was performed. Ordering Physician: Flori Johnson Performed By: Bishop Smith RCS
--- NOTE | 2022-04-19 07:23 | DS.PCM_ITS ---
Providers Date of Admission: 04/18/22 Date of Discharge: 04/19/22 Primary Care Physician: Dr. Ant Nuñez, DO Consultations 04/18/22 06:00 Consult: Cardiology Routine Consulting Provider: Merced Guerrier Reason for Consult: Chest Pain EMERGENT Consult: No MD Notified: Yes Date Notified: 04/18/22 Time Notified: 04:57 Method of Notification: Text Reason For Visit: NSTEMI Diagnosis Discharge Diagnosis (1) NSTEMI, initial episode of care: Status: Acute Code(s): I21.4 - Non-ST elevation (NSTEMI) myocardial infarction Plan Patient is a 62-year-old gentleman presented with chest pain found to have elevated troponin consistent with acute non-STEMI admitted to the intensive care unit for further management 1.? Acute non-STEMI The patient has been admitted to a monitored bed treatment initiated per protocol with dual antiplatelet therapy heparin high-dose statin..? As part of his management 2D echo was ordered and consultation placed to cardiology Case discussed with Dr. Quinn plans for patient to undergo left heart catheterization with intervention if needed Cardiac catheterization performed demonstrated the following: Severe left main coronary disease. Left anterior descending artery which is totally occluded proximally. Left circumflex artery which has totally occluded at the proximal region. Right coronary artery previously known to be totally occluded. Saphenous vein graft to the diagonal vessel which was previously known to be totally occluded. Saphenous vein graft to the obtuse marginal branch which was previously known to be totally occluded. Right internal mammary artery to the posterior descending artery which is patent. Left internal mammary artery to left anterior descending artery which is presumed to be patent. Preserved left ventricular systolic function.? By cardiac catheterization as well as by echocardiogram. Based on the above angiographic findings Dr. Quinn with cardiology concluded that his troponin elevation is likely secondary to the circumflex artery occlusion manifest with his lateral ischemic changes. He recommended aggressive medical therapy. 2.? Coronary artery disease ? With previous CABG patient is on recommended medications including aspirin statin therapy and Plavix as well as nitrate 3.? Dyslipidemia -Patient is on statin therapy, continued at home dose 4.? COPD ? Currently not in exacerbation did continue with patient home bronchodilator treatment regimen 5.? Diabetes mellitus type 2 ? Patient metformin held in anticipation of his left heart catheterization please on Accu-Cheks before meals and at bedtime with sliding scale coverage 6.? Tobacco dependence - Counseled on cessation, offered nicotine patch for tobacco cravings 7.? DVT prophylaxis ? On heparin Medications at Discharge Home Medications nitroglycerin 0.4 mg sublingual tablet 0.4 mg sublingual Q5M PRN Cardiac/Chest Pain #10 tabs 06/12/18 alfuzosin 10 mg tablet,extended release 24 hr 10 mg PO DAILY #90 tabs 04/02/21 blood sugar diagnostic (FreeStyle Test strips) #50 ea 04/02/21 blood-glucose meter (FreeStyle System Kit) #1 ea 04/02/21 lancets 28 gauge (FreeStyle Lancets) #50 ea 04/02/21 pen needle, diabetic 31 gauge x 3/16 (1st Tier Unifine Pentips Plus) #100 ea 04/02/21 albuterol sulfate 90 mcg/actuation aerosol inhaler 2 puff inhalation Q4H PRN PRN Wheezing ##1 11/01/21 aspirin 81 mg chewable tablet 81 mg PO DAILY@0800 health maintenance #90 tabs 11/01/21 atenolol 50 mg tablet 50 mg PO DAILY #90 tabs 11/01/21 atorvastatin 40 mg tablet 40 mg PO QHS #90 tabs 11/01/21 budesonide-formoterol HFA 160 mcg-4.5 mcg/actuation aerosol inhaler (Symbicort) 2 puff inhalation BID #10.2 grams 11/01/21 buspirone 5 mg tablet 5 mg PO BID anxiety #180 tabs 11/01/21 clopidogrel 75 mg tablet 75 mg PO DAILY #90 tabs 11/01/21 fenofibrate micronized 134 mg capsule 134 mg PO DAILY lowers cholesterol #90 caps 11/01/21 isosorbide mononitrate 30 mg tablet,extended release 24 hr See Rx Instructions .Route .COMPLEX #90 tabs 11/01/21 losartan 25 mg tablet 25 mg PO DAILY #90 tabs 11/01/21 metformin 1,000 mg tablet 1,000 mg PO BID #180 tabs 11/01/21 omeprazole 20 mg capsule,delayed release 20 mg PO DAILY #60 caps 01/01/22 insulin lispro protamine-lispro 100 unit/mL (50-50) subcutaneous pen (Humalog Mix 50-50 KwikPen) 70 unit subcut BID 01/08/22 doxycycline monohydrate 100 mg capsule 100 mg PO BID #20 caps 03/01/22 insulin glargine 100 unit/mL (3 mL) subcutaneous pen 20 unit (0.2 mL) subcut ONCE #15 mL 04/09/22 Hospital Course Summary of Care Provided Minutes Spent on Discharge: 35 Physical Exam Narrative GENERAL: cooperative HEENT: Atraumatic; normocephalic EYES; Anicteric, Normal Conjunctiva NECK; supple, normal thyroid, RESPIRATORY: Diminished to auscultation CARDIOVASCULAR: Regular S1 S2, GI: soft, normoactive bowel sounds, : No Renal angle tenderness; EXTREMITIES: No edema, no clubbing, MUSCULOSKELETAL: no muscle wasting NEURO: Awake; no lateralizing signs. SKIN: No Rash PSYCH; Flat affect Weight / BMI Weight Weight: 93.4 kg Body Mass Index (BMI) 28.6 ABG / Lab / Microbiology Data Result Diagrams: 04/19/22 04:10 04/19/22 04:50 Laboratory: Laboratory Results - last 24 hr 04/18/22 08:00: Troponin I High Sens Cancelled 04/18/22 08:32: Troponin I High Sens 1889 H* 04/18/22 14:22: POC Glucose 182 H 04/18/22 17:34: POC Glucose 308 H 04/18/22 20:29: POC Glucose 283 H 04/19/22 04:10: WBC 6.6, RBC 4.82, Hgb 15.4, Hct 46.0, MCV 95.4 H, MCH 32.0, MCHC 33.5, RDW Std Deviation 43.7, RDW Coeff of Maycol 12.4, Plt Count 254, MPV 1 0.2, Immature Gran % (Auto) 0.500, Neut % (Auto) 59.9, Lymph % (Auto) 27.0, [place] % (Auto) 7.8, Eos % (Auto) 4.3, Baso % (Auto) 0.5, Absolute Neuts (auto) 3.9, Absolute Lymphs (auto) 1.77, Nucleated RBC % 0 04/19/22 04:10: Sodium Cancelled, Potassium Cancelled, Chloride Cancelled, Carbon Dioxide Cancelled, Anion Gap Cancelled, BUN Cancelled, Creatinine Cancelled, Estim Creat Clear Calc Cancelled, Est GFR (MDRD) Af Amer Cancelled, Est GFR (MDRD) Non-Af Cancelled, BUN/Creatinine Ratio Cancelled, Glucose Cancelled, Calcium Cancelled 04/19/22 04:10: PT Cancelled, INR Cancelled, APTT Cancelled 04/19/22 04:50: PT 13.0, INR 1.0, APTT 25.0 04/19/22 04:50: Sodium 137, Potassium 4.1, Chloride 104, Carbon Dioxide 26.0, Anion Gap 7, BUN 16, Creatinine 1.02, Estim Creat Clear Calc 79.98, Est GFR (MDRD) Af Amer 95, Est GFR (MDRD) Non-Af 79, BUN/Creatinine Ratio 15.7, Glucose 235 H, Calcium 8.9 D/C Instructions Discharge Diet: Low fat / Low cholesterol and 1800 Calorie Control Diet Discharge Activity: Return to Normal Activity Call your doctor if you observe: Fever of 101 or Higher, Shortness of breath, Fainting spells and Chest pain Meaningful Use Info Meaningful Use Diagnoses (Choose all that apply): AMI AMI/Post PCI/Angioplasty Aspirin given w/in 24hrs of arrival?: Yes ASA at discharge?: Yes Antiplatelet Therapy at Discharge:: Yes Statins at discharge?: Yes Hemanth/ARB at discharge?: Yes Beta [place] at discharge?: Yes Done w/ Acute [place] measure.: Yes Documented LVEF (%): 60 Discharge Plan Admission Admit Date/Time: 04/18/22 04:54 Attending Provider: Steve Fields Primary Care Provider: Ant Nuñez Consulting Providers: Merced Guerrier ; Flori Johnson Discharge Orders/Prescriptions Prescriptions: Continued omeprazole 20 mg capsule,delayed release(DR/EC) 20 mg PO DAILY Qty: 60 1RF insulin glargine 100 unit/mL (3 mL) insulin pen 20 unit subcut ONCE Qty: 15 3RF Rx Instructions: at Bedtime Humalog Mix 50-50 KwikPen 100 unit/mL (50-50) insulin pen 70 unit SC BID Rx Instructions: 9 pm: eat a meal, take 40 units insulin 1 am: eat a meal during work break 8 am: eat a meal take 50 units insulin nitroglycerin 0.4 MG tablet 0.4 mg Sublingual Q5M PRN (Reason: Cardiac/Chest Pain) Qty: 10 0RF doxycycline monohydrate 100 mg capsule 100 mg PO BID Qty: 20 0RF alfuzosin 10 mg tablet extended release 24 hr 10 mg PO DAILY Qty: 90 3RF Hold Instructions: Resume on 07/26/21. Rx Instructions: administer after the same meal each day (DME) FreeStyle Test Strip See Rx Instructions .ROUTE .MEDSUPPLY Qty: 50 11RF Rx Instructions: check blood glucose daily (DME) blood-glucose meter [FreeStyle System Kit] Kit See Rx Instructions .ROUTE .MEDSUPPLY Qty: 1 0RF Rx Instructions: check blood glucose daily for type 2 DM (DME) lancets [FreeStyle Lancets] 28 gauge misc See Rx Instructions .ROUTE .MEDSUPPLY Qty: 50 11RF Rx Instructions: Check blood glucose daily for type 2 DM (DME) pen needle, diabetic [1st Tier Unifine Pentips Plus] 31 gauge x 3/16 needle See Rx Instructions .ROUTE .MEDSUPPLY Qty: 100 1RF Rx Instructions: use with lantus nightly albuterol sulfate 90 mcg/actuation HFA aerosol inhaler 2 puff inhalation Q4H PRN PRN (Reason: Wheezing) Qty: 1 3RF aspirin 81 mg tablet,chewable 81 mg PO DAILY@0800 Qty: 90 3RF atenolol 50 mg tablet 50 mg PO DAILY Qty: 90 3RF atorvastatin 40 mg tablet 40 mg PO QHS Qty: 90 3RF budesonide-formoterol [Symbicort] 160-4.5 mcg/actuation HFA aerosol inhaler 2 puff INHALATION BID Qty: 10.2 3RF buspirone 5 mg tablet 5 mg PO BID Qty: 180 1RF clopidogrel 75 mg tablet 75 mg PO DAILY Qty: 90 3RF fenofibrate micronized 134 mg capsule 134 mg PO DAILY Qty: 90 3RF isosorbide mononitrate 30 mg tablet extended release 24 hr See Rx Instructions .ROUTE .COMPLEX Qty: 90 3RF Dose Instruction: TAKE 1 TABLET BY MOUTH EVERY DAY Rx Instructions: TAKE 1 TABLET BY MOUTH EVERY DAY metformin 1,000 mg tablet 1,000 mg PO BID Qty: 180 1RF losartan 25 mg tablet 25 mg PO DAILY Qty: 90 3RF Referrals / Follow Up: Ant Nuñez R, [Primary Care Provider] - Disposition Disposition (needs filled in before D/C Order can be placed): Home, Self Care Charges/Coding Visit Charges Inpatient E&M: 61532 Disch Hosp >30min
[2022-04-19] MEDS: Insulin Lispro 100 UNIT/ML INSULN.PEN SC ×2 (07:42→12:17)
[2022-04-19] MEDS: Fenofibrate 145 MG Tablet PO (07:42)
[2022-04-19 08:06] LABS: Bedside Glucose 240 mg/dL (74-106)
[2022-04-19 09:30] VITALS: BP 110/77; PULSE 79; RESP 20; TEMP 36.6; O2SAT 95
[2022-04-19] MEDS: Pantoprazole Sodium 20 MG Tablet PO (09:57)
[2022-04-19] MEDS: Isosorbide Mononitrate 30 MG Tablet PO (09:57)
[2022-04-19] MEDS: Atenolol 50 MG Tablet PO (09:57)
[2022-04-19] MEDS: Losartan Potassium 25 MG Tablet PO (09:57)
[2022-04-19] MEDS: Clopidogrel Bisulfate 75 MG Tablet PO (09:57)
--- NOTE | 2022-04-19 10:07 | PCM.PN.CARD ---
Subjective Subjective Patient seen and valuated. Appears to be doing quite well. No complaints. Objective Data Vital Signs: Vital Signs Temp Pulse Resp BP Pulse Ox O2 Del Method 97.9 F 79 20 H 110/77 95 Room Air 04/19/22 09:30 04/19/22 09:30 04/19/22 09:30 04/19/22 09:30 04/19/22 09:30 04/19/22 09:30 Oxygen Delivery Method Room Air Weight: 205 lb 14.588 oz Body Mass Index (BMI) 28.6 Intake & Output: Intake and Output for Last 24 Hours 04/17/22 04/18/22 04/19/22 23:59 23:59 23:59 Intake Total 257 / 257 Balance 257 / 257 Lab / Micro Data Result Diagrams: 04/19/22 04:10 04/19/22 04:50 Labs: Laboratory Results - last 24 hr 04/18/22 14:22: POC Glucose 182 H 04/18/22 17:34: POC Glucose 308 H 04/18/22 20:29: POC Glucose 283 H 04/19/22 04:10: WBC 6.6, RBC 4.82, Hgb 15.4, Hct 46.0, MCV 95.4 H, MCH 32.0, MCHC 33.5, RDW Std Deviation 43.7, RDW Coeff of Maycol 12.4, Plt Count 254, MPV 10.2, Immature Gran % (Auto) 0.500, Neut % (Auto) 59.9, Lymph % (Auto) 27.0, [place] % (Auto) 7.8, Eos % (Auto) 4.3, Baso % (Auto) 0.5, Absolute Neuts (auto) 3.9, Absolute Lymphs (auto) 1.77, Nucleated RBC % 0 04/19/22 04:10: Sodium Cancelled, Potassium Cancelled, Chloride Cancelled, Carbon Dioxide Cancelled, Anion Gap Cancelled, BUN Cancelled, Creatinine Cancelled, Estim Creat Clear Calc Cancelled, Est GFR (MDRD) Af Amer Cancelled, Est GFR (MDRD) Non-Af Cancelled, BUN/Creatinine Ratio Cancelled, Glucose Cancelled, Calcium Cancelled 04/19/22 04:10: PT Cancelled, INR Cancelled, APTT Cancelled 04/19/22 04:50: PT 13.0, INR 1.0, APTT 25.0 04/19/22 04:50: Sodium 137, Potassium 4.1, Chloride 104, Carbon Dioxide 26.0, Anion Gap 7, BUN 16, Creatinine 1.02, Estim Creat Clear Calc 79.98, Est GFR (MDRD) Af Amer 95, Est GFR (MDRD) Non-Af 79, BUN/Creatinine Ratio 15.7, Glucose 235 H, Calcium 8.9 04/19/22 07:39: POC Glucose 240 H Rhythm Strip Rhythm Strip: Sinus Rhythm Rate: 85 Ectopy: None Cardiology Labs/Tests 04/19/22 04:10: WBC 6.6, RBC 4.82, Hgb 15.4, Hct 46.0, MCV 95.4 H, MCH 32.0, MCHC 33.5, Plt Count 254, MPV 10.2, Immature Gran % (Auto) 0.500, Neut % (Auto) 59.9, Lymph % (Auto) 27.0, [place] % (Auto) 7.8, Eos % (Auto) 4.3, Baso % (Auto) 0.5, Absolute Neuts (auto) 3.9, Nucleated RBC % 0 04/19/22 04:10: Sodium Cancelled, Potassium Cancelled, Chloride Cancelled, Carbon Dioxide Cancelled, Anion Gap Cancelled, BUN Cancelled, Creatinine Cancelled, Est GFR (MDRD) Af Amer Cancelled, Est GFR (MDRD) Non-Af Cancelled, BUN/Creatinine Ratio Cancelled, Glucose Cancelled, Calcium Cancelled 04/19/22 04:10: PT Cancelled, INR Cancelled, APTT Cancelled 04/19/22 04:50: PT 13.0, INR 1.0, APTT 25.0 04/19/22 04:50: Sodium 137, Potassium 4.1, Chloride 104, Carbon Dioxide 26.0, Anion Gap 7, BUN 16, Creatinine 1.02, Est GFR (MDRD) Af Amer 95, Est GFR (MDRD) Non-Af 79, BUN/Creatinine Ratio 15.7, Glucose 235 H, Calcium 8.9 Rhythm: EKG: ECHO: Stress Test: Cardiac Cath: PCI: CT Surgery: Holter monitor: EPS: PPM: CXR: Chest CT Scan: Radiography Diagnostic Testing: Radiology Impression Echocardiogram 04/19/22 05:55 Interpretation Summary Normal LV size. Left ventricular systolic function is normal. The estimated ejection fraction is 60 %. Mild focal aortic valve calcification. Pulmonary artery systolic pressure is 38 mmHg. Contrast injection was performed. Ordering Physician: Flori Johnson Performed By: Bishop Smith RCS Physical Exam Const alert, oriented x3 and no apparent distress General Appearance: cooperative HEENT normocephalic, head/scalp atraumatic, hearing grossly normal bilaterally and moist oral mucous membranes Mouth: oral and palatal mucosa normal and moist mucous membranes abnormal Eyes PERRL, EOMs intact bilaterally and conjunctivae normal Neck no lymphadenopathy and supple Neck Narrative: Carotid endarterectomy scar Resp normal respiratory effort, no retractions, no use of accessory muscles and clear to auscultation bilaterally Cardio regular rate, regular rhythm, S1 normal heart sound, S2 normal heart sound and no murmurs GI normal to inspection, nondistended, normoactive bowel sounds, soft to palpation, non-tender and non-distended Extremity normal to inspection, full ROM and no clubbing, cyanosis or edema Neuro oriented x3, CN's II-XII intact bilaterally, moves all extremities and no focal motor deficits Sensorium / Orientation: awake and alert Motor Exam: strength 5/5 throughout Psych affect normal Assessment & Plan Assessment/Plan (1) NSTEMI, initial episode of care: PLAN: He presented with chest pain as well as abnormal cardiac enzymes. Cardiac catheterization performed demonstrated the following: Severe left main coronary disease. Left anterior descending artery which is totally occluded proximally. Left circumflex artery which has totally occluded at the proximal region. Right coronary artery previously known to be totally occluded. Saphenous vein graft to the diagonal vessel which was previously known to be totally occluded. Saphenous vein graft to the obtuse marginal branch which was previously known to be totally occluded. Right internal mammary artery to the posterior descending artery which is patent. Left internal mammary artery to left anterior descending artery which is presumed to be patent. Preserved left ventricular systolic function. By cardiac catheterization as well as by echocardiogram. Based on the above angiographic findings it appears that his troponin elevation is likely secondary to the circumflex artery occlusion manifest with his lateral ischemic changes. I would recommend aggressive medical therapy. (2) H/O coronary artery bypass surgery: PLAN: He has had coronary bypass surgery as noted above. 2 of his bypass grafts are already occluded. We will continue to follow him regarding the above. (3) Essential (primary) hypertension: PLAN: His blood pressure appears to be suboptimally controlled. We will try and increase his NYDIA inhibitor for better blood pressure control. (4) Hyperlipidemia: QUALIFIERS: Hyperlipidemia type: mixed hyperlipidemia Qualified Code(s): E78.2 - Mixed hyperlipidemia PLAN: He does have a history of hyperlipidemia and will continue high intensity statin for better control of his lipid status. (5) Stenosis of right carotid artery: PLAN: He does have evidence of a previous right carotid endarterectomy. We will continue to follow this with the vascular service. Patient also has evidence of severe peripheral vascular disease with severe disease of the right femoral vessels.
[2022-04-19 12:40] LABS: Bedside Glucose 290 mg/dL (74-106)
[2022-04-19 14:53] VITALS: O2SAT 95
--- NOTE | 2022-04-21 07:57 | CL.D_ITS ---
Patient Name: KANA MEJIA Study Date: 04/18/2022 Performing: Calos Quinn MD Ht: 71 inches 180.34 cm : 1960 Wt: 206.2 lbs 93.4 kg Age: 62 Gender: male BSA: 2.14 PROCEDURE(S) PERFORMED [id number])LHC/COR/LV/CABG CLINICAL PROFILE AND INDICATIONS Indications: Suspected CAD Heart Failure: None Stress/Imaging Stress/Image Study Performed: No CAD Presentations: Non-STEMI. Symptom onset Date/Time: 04/18/22 Time Not Available CONCLUSIONS Known severe coronary artery disease with [place] vessels and circumflex artery which now appears to be totally occluded with a patent LOAGN to the posterior descending artery and presumed patent ALMANZAR to the LAD. Preserved ejection fraction. RECOMMENDATIONS Medical therapy DESCRIPTION OF PROCEDURE The patient arrived to the procedure lab. The risks and benefits of the procedure as well as a full description of our services here and current unavailability of surgical backup were fully explained to the patient and/or their significant other prior to the catheterization. The Timeout was completed, verifying the correct patient and procedure. The patient's procedural site was prepped and draped in the usual fashion. Local anesthetic was given subcutaneously to right radial region with Lidocaine 2%. Local anesthetic was given subcutaneously to right groin region with Lidocaine 2%. Local anesthetic was given subcutaneously to left groin region with Lidocaine 2%. Using a modified Seldinger technique, arterial access was obtained via the right radial artery, a 6Fr sheath was inserted., arterial access was obtained via the left femoral artery, a 5Fr sheath was inserted. Right internal mammary artery graft to the RCA selective angiography was performed in multiple views using a 5 Fr. IM catheter. Left Coronary Artery selective angiography was performed in multiple views using a 5 Fr. JL4 catheter. Left Ventriculography was performed in DON projection using a 5 Fr. Pigtail catheter. LV to AO pullback pressures were then recorded.The arterial sheath was pulled and a TR Band was applied for hemostasis w/ 10ml air. The arterial sheath was pulled and manual compression applied until hemostasis is achieved. CORONARY ANGIOGRAPHY DOMINANCE: Right Dominant LEFT HEART ASSESSMENT Left Ventricular Ejection Fraction: by LV Gram 60 % Normal LV wall motion Normal Left Ventricular systolic function LEFT MAIN: Severely diseased LEFT ANTERIOR DESCENDING ARTERY: PROX LAD: is occluded CIRCUMFLEX ARTERY: PROX CIRC: is occluded RIGHT CORONARY ARTERY: OSTIAL RCA: is occluded GRAFTS: Sequential graft to the Obtuse marginal branch is occluded Sequential graft to the Diagonal vessel is occluded ALMANZAR graft to the Mid LAD Presumed to be patent. Was noted to be patent at last catheterization. LOGAN graft to the Distal RCA is patent COMPLICATIONS No Complications PROCEDURE MEDICATIONS Versed 1 mg IV Fentanyl 50 mcg IV Versed 1 mg IV Versed 1 mg IV Oxygen: 2 L/min via nasal cannula Heparin given IA 04/18/2022 12:27:57 Verapamil 2.5mg, Ntg 100mcgs, 3000 units of Heparin given IA 04/18/2022 12:27:57 SUMMARY OF HEMODYNAMIC DATA Time AIR REST ECG 11:48:54 Art 159/79 (109) 12:11:51 AO 125/76 (97) SA 12:29:02 AO 131/73 (104) 12:55:17 LV 130/20, 28 13:06:27 LV 142/21, 28 13:06:34 LV 129/25, 35 13:07:08 LV 130/20, 26 13:07:14 LVp 128/27, 27 13:07:19 AOp 126/72 (95) 13:07:24 Signed By Calos Quinn MD On 04/21/2022 07:56:30 Calos Quinn MD
== END 2022-04-19 14:45 | disposition home or self-care (01) | DRG 190 ==
LOC: ED 02:14 → ICU 05:24
PROVIDERS: Admitting Provider Student in an Organized Health Care Education/Training Program; Emergency Provider Emergency Medicine; PCP Family Medicine; Visit Provider Internal Medicine
DX: I21.4 Non-ST elevation (NSTEMI) myocardial infarction (principal); E11.51 Type 2 diabetes mellitus with diabetic peripheral angiopathy without gangrene; Z95.1 Presence of aortocoronary bypass graft; Z79.4 Long term (current) use of insulin; J43.9 Emphysema, unspecified; I25.10 Atherosclerotic heart disease of native coronary artery without angina pectoris; I10 Essential (primary) hypertension; F17.210 Nicotine dependence, cigarettes, uncomplicated; E78.2 Mixed hyperlipidemia; I65.21 Occlusion and stenosis of right carotid artery; I25.2 Old myocardial infarction; Z66 Do not resuscitate; Z79.82 Long term (current) use of aspirin; Z82.3 Family history of stroke
CPT/HCPCS: 71046; 80048; 82962; 83735; 84484; 85025; 85610; 85730; 93005; 93306; 93459; 99152; 99153; 99285; Q9957; A4216; C1769; C1894; C8929

== ENCOUNTER 2022-05-21 01:24 | Emergency (ER) | payer MEDICAID, SELFPAY ==
[2022-05-21 01:34] VITALS: BP 143/79; PULSE 74; RESP 17; TEMP 37.1; O2SAT 98; BMI 29.1
--- NOTE | 2022-05-21 01:39 | RAD_ITS ---
EXAM: XR RIGHT FOOT COMPLETE, 3 OR MORE VIEWS CLINICAL INDICATION: pain pain. Patient dropped a tool on the foot. Pain between the second and third toes. TECHNIQUE: Frontal, lateral and oblique views of the right foot. This report was created using [employer] report generation technology. COMPARISON: None. FINDINGS: BONES/JOINTS: There is mild degenerative arthrosis of the first metatarsophalangeal joint. There is a plantar calcaneal spur. No acute fracture. No subluxation. Normal alignment. No sclerotic or destructive changes observed. SOFT TISSUES: Unremarkable. No soft tissue swelling or gas. No radiopaque foreign body. RAD/Foot min 3 Views IMPRESSION: No demonstrated fracture, dislocation, or destructive osseous lesion. Electronically Signed: José Thomson MD at 2:40 EST Reading Location ID and State: [facility] / [place] , Service support ,
[2022-05-21] MEDS: Ketorolac 30 MG/ML Syringe IM (01:57)
--- NOTE | 2022-05-21 02:51 | EX.ED.DYSGE1 ---
HPI History of Present Illness Chief Complaint: Lower Extremity Injury Narrative Narrative: Patient is a 62-year-old male who states that around 3 or 4:00 today he dropped approximately 50 pound object on his left foot. He states he was wearing tennis shoes at the time. He states that the foot hurt initially but then it seemed to improve. However as time went by he had increased swelling and increased pain and has concern for fracture and therefore comes in for evaluation. [facility] Medical History (Updated 05/23/22 @ 03:[address] Bronson Tolentino, DO) Arthritis Asthma Atherosclerosis of coronary artery of [place] heart without angina pectoris Emphysema lung Encounter for screening for malignant neoplasm of lung in current smoker with 30 pack year history or greater Essential (primary) hypertension GERD (gastroesophageal reflux disease) History of non-ST elevation myocardial infarction (NSTEMI) (06/11/18) Hyperlipidemia Insulin dependent diabetes mellitus Nicotine dependence Pancreatitis Stenosis of right carotid artery Type 2 diabetes mellitus Home Medications alfuzosin 10 mg tablet,extended release 24 hr 10 mg PO DAILY #90 tabs 04/02/21 [Rx Last Taken Unknown] blood sugar diagnostic (FreeStyle Test strips) #50 ea 04/02/21 [Rx Last Taken Unknown] blood-glucose meter (FreeStyle System Kit) #1 ea 04/02/21 [Rx Last Taken Unknown] lancets 28 gauge (FreeStyle Lancets) #50 ea 04/02/21 [Rx Last Taken Unknown] pen needle, diabetic 31 gauge x 3/16 (1st Tier Unifine Pentips Plus) #100 ea 04/02/21 [Rx Last Taken Unknown] albuterol sulfate 90 mcg/actuation aerosol inhaler 2 puff inhalation Q4H PRN PRN Wheezing ##1 11/01/21 [Rx Last Taken Unknown] aspirin 81 mg chewable tablet 81 mg PO DAILY@0800 health maintenance #90 tabs 11/01/21 [Rx Last Taken Unknown] atenolol 50 mg tablet 50 mg PO DAILY #90 tabs 11/01/21 [Rx Last Taken Unknown] atorvastatin 40 mg tablet 40 mg PO QHS #90 tabs 11/01/21 [Rx Last Taken Unknown] budesonide-formoterol HFA 160 mcg-4.5 mcg/actuation aerosol inhaler (Symbicort) 2 puff inhalation BID #10.2 grams 11/01/21 [Rx Last Taken Unknown] buspirone 5 mg tablet 5 mg PO BID anxiety #180 tabs 11/01/21 [Rx Last Taken Unknown] clopidogrel 75 mg tablet 75 mg PO DAILY #90 tabs 11/01/21 [Rx Last Taken Unknown] fenofibrate micronized 134 mg capsule 134 mg PO DAILY lowers cholesterol #90 caps 11/01/21 [Rx Last Taken Unknown] isosorbide mononitrate 30 mg tablet,extended release 24 hr See Rx Instructions .Route .COMPLEX #90 tabs 11/01/21 [Rx Last Taken Unknown] losartan 25 mg tablet 25 mg PO DAILY #90 tabs 11/01/21 [Rx Last Taken Unknown] metformin 1,000 mg tablet 1,000 mg PO BID #180 tabs 11/01/21 [Rx Last Taken Unknown] omeprazole 20 mg capsule,delayed release 20 mg PO DAILY #60 caps 01/01/22 [Rx Last Taken Unknown] insulin lispro protamine-lispro 100 unit/mL (50-50) subcutaneous pen (Humalog Mix 50-50 KwikPen) 70 unit subcut BID 01/08/22 [History Last Taken Unknown] insulin glargine 100 unit/mL (3 mL) subcutaneous pen 20 unit (0.2 mL) subcut ONCE #15 mL 04/09/22 [Rx Last Taken Unknown] dapagliflozin 10 mg tablet (Farxiga) 10 mg PO DAILY #30 tabs 04/24/22 [Rx Last Taken Unknown] nitroglycerin 0.4 mg sublingual tablet 0.4 mg sublingual Q5M PRN Cardiac/Chest Pain #20 tabs 04/24/22 [Rx Last Taken Unknown] hydrocodone-acetaminophen 5-325mg 5mg-325mg 1 tab PO Q6H PRN PRN Pain 3 days #12 TABLETS 05/21/22 [Rx Last Taken Unknown] Allergy/AdvReac Type Severity Reaction Status Date / Time amoxicillin Allergy Angioedema Verified 05/19/22 13:37 lindane Allergy Rash Verified 05/19/22 13:37 Family History Father Asthma Alcoholism Arthritis Heart disease Hypertension High cholesterol CVA (cerebral vascular accident) Lung cancer Grandfather Myocardial infarction Surgical History (Updated 05/19/22 @ 14:28 by Dean Pena NP, CURRICULUM AND ASSESSMENT COORDINATOR-C) H/O coronary artery bypass surgery (2006) History of carotid endarterectomy (01/06/14) History of hernia repair History of left heart catheterization (06/11/18) Social History Smoking Status: Current every day smoker tobacco type: cigarettes Tobacco: How many years used: 45 Electronic Cigarette Use: not used second hand exposure: Yes quit status: considering quitting counseling given: provider counseling alcohol intake: never substance use type: does not use caffeine: Yes Type: coffee Number of servings: 5 what type of physical activity do you participate in: none ROS ROS ED Constitutional Constitutional ED: Denies chills or fever(s) ENT ENT ED: Denies sore throat Cardiovascular Cardiovascular: Denies chest pain Respiratory/Chest Respiratory/Chest: Denies cough or dyspnea Gastrointestinal Gastrointestinal: Denies abdominal pain, diarrhea, nausea or vomiting Genitourinary Genitourinary ED: Denies dysuria Musculoskeletal Musculoskeletal: Reports other Details: Positive left foot pain Integumentary Denies rash Neurologic Neurologic: Denies headache(s) or paresthesias Hematologic/Lymphatic Hematologic/Lymphatic: Denies easy bleeding or easy bruising EXAM Physical Exam Const Vital Signs: 05/21/22 01:34 Temperature 98.8 F Temperature Source Oral Pulse Rate 74 Respiratory Rate 17 Blood Pressure 143/79 H Blood Pressure Mean 100 Pulse Ox 98 Oxygen Delivery Method Room Air Positive well nourished and well developed General Appearance ED: well developed Eyes PERRL and EOMs intact bilaterally Neck supple Resp normal respiratory effort and clear to auscultation bilaterally Cardio regular rate and regular rhythm Extremity Extremity Narrative: Left lower extremity is neurovascularly intact. There is mild soft tissue swelling to the dorsum aspect of the left foot with faint ecchymosis. No obvious bony deformity or joint effusion. No subungual hematoma. Achilles tendon is intact and ankle ligaments are stable. Remainder the exam is normal Neuro oriented x3 and CN's II-XII intact bilaterally Sensorium / Orientation: alert Psych mental status grossly normal Skin no rashes or lesions noted Skin Narrative: Mild soft tissue swelling and ecchymosis of the dorsum of the left foot as documented above MDM MDM MDM Narrative Medical decision making narrative: Patient presented to the ER with report of mechanical injury to the left foot. Secondary to this there is concern for fracture or foreign body. By exam he does not have a subungual hematoma ligamentous or tendon injury or signs of neurovascular compromise. Therefore I felt only need for a foot x-ray. X-ray was negative for fracture dislocation or foreign body and therefore patient be treated symptomatically and discharged home Radiography Diagnostic Testing: Clinical Impression(s) from Imaging Studies Foot X-Ray 05/21/22 01:39 IMPRESSION: No demonstrated fracture, dislocation, or destructive osseous lesion. Electronically Signed: José Thomson MD at 2:40 EST , X-ray of the left foot as interpreted by the emergency medicine physician reveals no acute fracture or dislocation Discharge Plan Triage Chief Complaint: Lower Extremity Injury ED Provider: Bronson Tolentino Dx/Rx/DC Orders Clinical Impression: Contusion of foot, left, Essential (primary) hypertension, COPD (chronic obstructive pulmonary disease) with emphysema Instructions: ED Foot Contusion Prescriptions: New hydrocodone-acetaminophen 5-325 mg tablet 1 tab PO Q6H PRN PRN (Reason: Pain) 3 Days Qty: 12 0RF No Action omeprazole 20 mg capsule,delayed release(DR/EC) 20 mg PO DAILY Qty: 60 1RF insulin glargine 100 unit/mL (3 mL) insulin pen 20 unit subcut ONCE Qty: 15 3RF Rx Instructions: at Bedtime Humalog Mix 50-50 KwikPen 100 unit/mL (50-50) insulin pen 70 unit SC BID Rx Instructions: 9 pm: eat a meal, take 40 units insulin 1 am: eat a meal during work break 8 am: eat a meal take 50 units insulin Farxiga 10 mg tablet 10 mg PO DAILY Qty: 30 3RF nitroglycerin 0.4 mg tablet, sublingual 0.4 mg Sublingual Q5M PRN (Reason: Cardiac/Chest Pain) Qty: 20 1RF alfuzosin 10 mg tablet extended release 24 hr 10 mg PO DAILY Qty: 90 3RF Hold Instructions: Resume on 07/26/21. Rx Instructions: administer after the same meal each day (DME) FreeStyle Test Strip See Rx Instructions .ROUTE .MEDSUPPLY Qty: 50 11RF Rx Instructions: check blood glucose daily (DME) blood-glucose meter [FreeStyle System Kit] Kit See Rx Instructions .ROUTE .MEDSUPPLY Qty: 1 0RF Rx Instructions: check blood glucose daily for type 2 DM (DME) lancets [FreeStyle Lancets] 28 gauge misc See Rx Instructions .ROUTE .MEDSUPPLY Qty: 50 11RF Rx Instructions: Check blood glucose daily for type 2 DM (DME) pen needle, diabetic [1st Tier Unifine Pentips Plus] 31 gauge x 3/16 needle See Rx Instructions .ROUTE .MEDSUPPLY Qty: 100 1RF Rx Instructions: use with lantus nightly albuterol sulfate 90 mcg/actuation HFA aerosol inhaler 2 puff inhalation Q4H PRN PRN (Reason: Wheezing) Qty: 1 3RF aspirin 81 mg tablet,chewable 81 mg PO DAILY@0800 Qty: 90 3RF atenolol 50 mg tablet 50 mg PO DAILY Qty: 90 3RF atorvastatin 40 mg tablet 40 mg PO QHS Qty: 90 3RF budesonide-formoterol [Symbicort] 160-4.5 mcg/actuation HFA aerosol inhaler 2 puff INHALATION BID Qty: 10.2 3RF buspirone 5 mg tablet 5 mg PO BID Qty: 180 1RF clopidogrel 75 mg tablet 75 mg PO DAILY Qty: 90 3RF fenofibrate micronized 134 mg capsule 134 mg PO DAILY Qty: 90 3RF isosorbide mononitrate 30 mg tablet extended release 24 hr See Rx Instructions .ROUTE .COMPLEX Qty: 90 3RF Dose Instruction: TAKE 1 TABLET BY MOUTH EVERY DAY Rx Instructions: TAKE 1 TABLET BY MOUTH EVERY DAY metformin 1,000 mg tablet 1,000 mg PO BID Qty: 180 1RF losartan 25 mg tablet 25 mg PO DAILY Qty: 90 3RF Primary Care Provider: Ant Nuñez Referrals: Ant Nuñez, DO [Primary Care Provider] - Activity Restrictions/Additional Instructions: Your x-ray does not show any broken bones in your foot. Therefore you have a foot contusion which is bruised bones. This will take roughly 1 to 2 weeks to heal. Wear the Hemanth wrap for padding and compression and use the crutches as necessary to help with ambulation. If you have any further concerns please return to the ER for repeat evaluation Disposition Disposition: Home, Self Care Discharge Date/Time: 05/21/22 03:18
== END 2022-05-21 03:18 | disposition home or self-care (01) ==
PROVIDERS: Emergency Provider Emergency Medicine; PCP Family Medicine; Visit Provider Emergency Medicine
DX: S90.32XA Contusion of left foot, initial encounter (principal); J43.9 Emphysema, unspecified; I25.10 Atherosclerotic heart disease of native coronary artery without angina pectoris; I10 Essential (primary) hypertension; F17.210 Nicotine dependence, cigarettes, uncomplicated; I25.2 Old myocardial infarction; Z95.1 Presence of aortocoronary bypass graft; X58.XXXA Exposure to other specified factors, initial encounter
CPT/HCPCS: 73630; 96372; 99283

== ENCOUNTER → 2022-06-02 | Outpatient (CLI) | payer MEDICAID, SELFPAY ==
[2022-06-02 10:57] LABS: AST(SGOT) 26 U/L (15-37); Alanine Aminotransfer ALT/SGPT 35 U/L (16-61); Albumin, Serum 3.6 g/dL (3.2-5.0); Alkaline Phosphatase 68 U/L (45-117); Bilirubin, Direct 0.07 mg/dL (0.00-0.30); Cholesterol 326 mg/dL (200); Globulin 3.9 g/dL (2.2-4.2); High Density Lipoprotein 36 mg/dL; Protein, Total 7.5 g/dL (6.4-8.2); Triglycerides 883 mg/dL
== END | disposition home or self-care (01) ==
LOC: LAB 08:40
PROVIDERS: PCP Family Medicine; Referring Provider Nurse Practitioner Family; Visit Provider Nurse Practitioner Family
DX: E78.2 Mixed hyperlipidemia (principal); Z95.1 Presence of aortocoronary bypass graft; I10 Essential (primary) hypertension; I65.21 Occlusion and stenosis of right carotid artery
CPT/HCPCS: 36415; 80061; 80076

== ENCOUNTER → 2022-07-01 | Outpatient (CLI) | payer MEDICAID, SELFPAY ==
--- NOTE | 2022-07-01 09:44 | CDU_ITS ---
Reason For Study: Stenosis Rt. Velocities/BP Lt. Velocities/BP Prox CCA 74.4/13.0 cm/sec. Prox CCA 87.9/16.7 cm/sec. Mid CCA 65.8/13.0 cm/sec. Mid CCA 89.1/19.2 cm/sec. Dist CCA 79.3/15.5 cm/sec. Dist CCA 102.7/22.8 cm/sec. Prox ICA 195.9/45.6 cm/sec. Prox ICA 128.6/25.5 cm/sec. Mid ICA 146.2/27.7 cm/sec. Mid ICA 60.1/17.6 cm/sec. Dist ICA 58.2/15.7 cm/sec. Dist ICA 53.2/16.4 cm/sec. Rt. ICA/CCA = 3.0. Lt. ICA/CCA = 1.4. Prox ECA 112.5/13.0 cm/sec. Prox ECA 227.0/19.7 cm/sec. Rt. Vert. 23.1/5.7 cm/sec. Lt. Vert. 61.0/13.8 cm/sec. Right Extracranial There is homogeneous, smooth atherosclerotic plaque noted in the right common carotid artery. There is heterogeneous, irregular atherosclerotic plaque noted in the right internal carotid artery. There is heterogeneous, irregular atherosclerotic plaque noted in the right external carotid artery. Antegrade flow is noted in the right vertebral artery. Left Extracranial There is heterogeneous, irregular atherosclerotic plaque noted in the left common carotid artery. There is heterogeneous, irregular atherosclerotic plaque noted in the left internal carotid artery. The atherosclerotic plaque causes acoustic shadowing. There is heterogeneous, irregular atherosclerotic plaque noted in the left external carotid artery. Antegrade flow is noted in the left vertebral artery. Multiple Lt Thyroid nodules noted. Procedure Carotid Duplex 31354. This is a Carotid Duplex examination using B-mode, color flow and specral Doppler. The exam was diagnostic. Exam performed in department. VL/Carotid Duplex Ultrasound Interpretation Summary Moderate (50-69%) stenosis right extracranial internal carotid. Moderate (50-69%) stenosis left extracranial internal carotid. Patent and antegrade vertebrals bilaterally. Incidental finding multiple thyroid nodules Ordering Physician: Dean Pena Referring Physician: Rebel Nuñez M.D. Performed By: Yonas Lock RVT
== END | disposition home or self-care (01) ==
LOC: CVS 09:44
PROVIDERS: PCP Family Medicine; Visit Provider Nurse Practitioner Family
DX: I65.22 Occlusion and stenosis of left carotid artery (principal)
CPT/HCPCS: 93880

== ENCOUNTER → 2023-04-15 | Outpatient (CLI) | payer MEDICAID, SELFPAY ==
--- OUTSIDE RECORDS SUMMARY | 2023-04-15 10:23 | XMS RPT_ITS | CCD ---
Author Name Unknown Address [id number] [place] [address] Organization [facility] Care Team Providers Care Policy Writer Typist Name Role Phone Unavailable Primary Care Provider UnavailXiang Sheikh DO Primary Care Provider YAMILKA BALTAZAR Attending Unavailable XIANG NUÑEZ Primary Care Unavailable YAMILKA BALTAZAR Referring Unavailable XIANG NUÑEZ Primary Care Unavailable YAMILKA BALTAZAR Referring Unavailable XIANG NUÑEZ Primary Care Unavailable YAMILKA BALTAZAR Attending Unavailable XIANG NUÑEZ Primary Care Unavailable YAMILKA BALTAZAR Attending Unavailable YAMILKA BALTAZAR Referring Unavailable XIANG NUÑEZ Primary Care Unavailable Xiang Nuñez DO Primary Care Provider Allergies Allergy Classification Reported Allergen(s) Allergy Type Date of Onset Reaction(s) Facility (7 sources) Etodolac; Translations: [ETODOLAC] Drug Allergy 03-12-2005 GI Upset [facility] (6 sources) Amoxicillin; Translations: [AMOXICILLIN] Drug Allergy 12-30-2021 Angioedema [facility] (6 sources) Lindane; Translations: [LINDANE] Drug Allergy 12-30-2021 Rash [facility] Medications Completed/Discontinued Medications Medication Drug Class(es) Dates Sig (Normalized) Sig (Original) [id number] 200 actuat albuterol 0.09 mg/actuat metered dose inhaler (12 sources) beta2-Adrenergic Agonist Start: 09-17-2015 take 2 puff(s) by inhalation every four hours as needed for wheezing albuterol HFA (VENTOLIN HFA) 90 mcg/actuation inhaler Inhale 2 Puffs as instructed every 4 hours as needed for Wheezing/Shortnes s of Breath. 1 Inhaler 0 01/04/2018 Active Problems Active Problems Problem Classification Problem Date Documented Da te Episodic/Chronic Abdominal pain (4 sources) Left inguinal pain; Translations: [Left lower quadrant pain] Onset: 01-28-2022 Episodic Disorders of lipid metabolism (6 sources) Pure hypercholesterolemi a; Translations: [Pure hypercholesterolemi a, unspecified] Onset: 10-09-2015 10-09-2015 Chronic Other upper respiratory infections (1 source) Upper respiratory infection; Translations: [Acute upper respiratory infection, unspecified] Episodic Unclassified (6 sources) Type 2 diabetes mellitus without complication; Translations: [Uncontrolled type 2 diabetes mellitus without complication, without long-term current use of insulin] Onset: 10-09-2015 10-09-2015 Past or Other Problems Problem Classification Problem Date Documented Da te Episodic/Chronic Abdominal hernia (13 sources) Umbilical hernia; Translations: [Umbilical hernia without obstruction or gangrene] Onset: 01-05-2017 01-05-2017 Episodic Results Test Name Value Interpretation Reference Range Facil ity Vital Signs Date Time Vital Sign Value Performing Clinician Faci lity 02-04-2022 08:30-0400 Body temperature 98.01 [degF] Yamilka Baltazar MD Work Phone: [facility] 02-04-2022 08:30-0400 Body weight 87.18 kg Yamilka Baltazar MD Work Phone: [facility] 02-04-2022 08:30-0400 Diastolic blood pressure 74 mm[Hg] Yamilka Baltazar MD Work Phone: [facility] 02-04-2022 08:30-0400 Heart rate 80 /min Yamilka Baltazar MD Work Phone: [facility] 02-04-2022 08:30-0400 SaO2% (BldA) [Mass fraction] 98 % Yamilka Baltazar MD Work Phone: [facility] 02-04-2022 08:30-0400 Systolic blood pressure 128 mm[Hg] Yamilka Baltazar MD Work Phone: [facility] 01-28-2022 10:40-0400 Body height 180.3 cm Yamilka Baltazar MD Work Phone: [facility] 01-28-2022 10:40-0400 Body temperature 97.3 [degF] Yamilka Baltazar MD Work Phone: [facility] 01-28-2022 10:40-0400 Body weight 87.36 kg Yamilka Baltazar MD Work Phone: [facility] 01-28-2022 10:40-0400 Diastolic blood pressure 70 mm[Hg] Yamilka Baltazar MD Work Phone: [facility] 01-28-2022 10:40-0400 Heart rate 79 /min Yamilka Baltazar MD Work Phone: [facility] 01-28-2022 10:40-0400 SaO2% (BldA) [Mass fraction] 98 % Yamilka Baltazar MD Work Phone: [facility] 01-28-2022 10:40-0400 Systolic blood pressure 124 mm[Hg] Yamilka Baltazar MD Work Phone: [facility] 01-06-2022 09:25-0400 Body height 180.3 cm Yamilka Baltazar MD Work Phone: [facility] 01-06-2022 09:25-0400 Body temperature 97.7 [degF] Yamilka Baltazar MD Work Phone: [facility] 01-06-2022 09:25-0400 Body weight 88.27 kg Yamilka Baltazar MD Work Phone: [facility] 01-06-2022 09:25-0400 Diastolic blood pressure 77 mm[Hg] Yamilka Baltazar MD Work Phone: [facility] 01-06-2022 09:25-0400 Heart rate 84 /min Yamilka Baltazar MD Work Phone: [facility] 01-06-2022 09:25-0400 SaO2% (BldA) [Mass fraction] 99 % Yamilka Baltazar MD Work Phone: [facility] 01-06-2022 09:25-0400 Systolic blood pressure 160 mm[Hg] Yamilka Baltazar MD Work Phone: [facility] 07-18-2021 12:52-0400 Body temperature 98.01 [degF] Gab Culver [employer] Work Phone: [facility] 07-18-2021 12:52-0400 Body weight 88 kg Gab Culver [employer] Work Phone: [facility] 07-18-2021 12:52-0400 Diastolic blood pressure 74 mm[Hg] Gab Culver [employer] Work Phone: [facility] 07-18-2021 12:52-0400 Heart rate 100 /min Gab Culver [employer] Work Phone: [facility] 07-18-2021 12:52-0400 Respiratory rate 18 /min Gab Culver [employer] Work Phone: [facility] 07-18-2021 12:52-0400 SaO2% (BldA) [Mass fraction] 96 % Gab Culver [employer] Work Phone: [facility] 07-18-2021 12:52-0400 Systolic blood pressure 122 mm[Hg] Gab Culver [employer] Work Phone: [facility] Encounters Encounter Date Encounter Type Care Provider Facility Start: 02-04-2022 End: 02-04-2022 ambulatory YAMILKA BALTAZAR Facility:[facility] Start: 02-04-2022 End: 02-04-2022 Patient encounter procedure Yamilka Baltazar MD Work Phone: General Surgery Procedures Date Procedure Procedure Detail Performing Clinician Start: 01-28-2022 Ct pelvis w/o contra st material Yamilka Baltazar MD Work Phone: Start: 12-23-2016 Adult depression screening assessment Gab Culver [employer] Work Phone: Plan of Treatment Date Care Activity Detail Author Start: 06-11-2024 Urine microalbumin profile DTaP,Tdap,Td Vaccine (2 - Td or Tdap) [facility] Start: 12-05-2022 Influenza vaccination Influenza Vaccine (#1) [facility] Start: 04-06-2022 Depression Assessment Depression Assessment [facility] Start: 12-05-2021 Influenza vaccination [facility] Start: 04-06-2021 DEPRESSION ASSESSMENT DEPRESSION ASSESSMENT [facility] Start: 06-06-2020 PROSTATE CANCER SCREENING DISCUSSION PROSTATE CANCER SCREENING DISCUSSION [facility] Start: 2020 Hepatitis B Vaccine (1 of 3 - Risk 3-dose series) Hepatitis B Vaccine (1 of 3 - Risk 3-dose series) [facility] Start: 2020 RSV Vaccine (1 - 1-dose 60+ series) RSV Vaccine (1 - 1-dose 60+ series) [facility] Start: 06-18-2019 ANNUAL PCP TEAM CHRONIC DISEASE VISIT ANNUAL PCP TEAM CHRONIC DISEASE VISIT [facility] Start: 12-23-2017 Adult depression screening assessment DEPRESSION SCREENING [facility] Start: 01-13-2017 3 comp foot exam completed DIABETIC FOOT EXAM [facility] Start: 01-13-2017 Hepatitis B surface antibody level LDL CHOLESTEROL [facility] Start: 10-08-2016 PNEUMOCOCCAL (2 - PCV) PNEUMOCOCCAL (2 - PCV) [facility] Start: 10-08-2016 Pneumococcal vaccination Pneumococcal Vaccine (2 - PCV) [facility] Start: 04-15-2016 Hemoglobin A1c/Hemoglobin.total in Blood HBA1C [facility] Start: 01-22-2015 Influenza vaccination LUNG CANCER SCREENING [facility] Start: 01-22-2010 Influenza vaccination LUNG CANCER SCREENING [facility] Start: 01-22-2010 SHINGRIX VACCINE (1 of 2) SHINGRIX VACCINE (1 of 2) [facility] Start: 01-22-2005 COLOGUARD (FIT-DNA) COLOGUARD (FIT-DNA) [facility] Start: 01-22-2005 Colonoscopy COLONOSCOPY [facility] Start: 01-22-2005 COLORECTAL CANCER SCREENING COLORECTAL CANCER SCREENING [facility] Start: 01-22-[address] COLONOGRAPHY [facility] Start: 01-22-2005 FECAL OCCULT BLOOD FECAL OCCULT BLOOD [facility] Start: 01-22-2005 SIGMOIDOSCOPY SIGMOIDOSCOPY [facility] Start: 01-22-1979 Urine microalbumin profile DTAP,TDAP,TD (1 - Tdap) [facility] Start: 01-22-1978 ANNUAL PCP TEAM CHRONIC DISEASE VISIT ANNUAL PCP TEAM CHRONIC DISEASE VISIT [facility] Start: 01-22-1978 HIV SCREENING HIV SCREENING [facility] Start: 01-22-1970 Hepatitis B screening URINE ALBUMIN:CREATININE RATIO [facility] Start: 01-22-1970 Hepatitis C antibody, confirmatory test DILATED RETINAL EXAM [facility] Start: 01-22-1965 COVID-19 VACCINE (1) COVID-19 VACCINE (1) [facility] Start: 1960 COVID-19 VACCINE (#1) COVID-19 VACCINE (#1) [facility] End: 02-05-2023 Ct pelvis w/o contrast material CT PELVIS WO IVCON Radiology Routine Left groin pain 1 Occurrences starting 01/06/2022 until 02/05/2023 [facility] Work Phone: Immunizations Immunization Date Immunization Notes Care Provider Fa radha 12-23-2016 influenza, injectabl e, quadrivalent, contains preservative Gab Culver [employer] Work Phone: [facility] 12-23-2016 influenza virus vacc ine, unspecified formulation Ct (I-Stat) Work Phone: [facility] 10-09-2015 pneumococcal polysaccharide vaccine, 23 valent Gab Culver [employer] Work Phone: [facility] Work Phone: Payers Date Payer Category Payer Medicaid [employer] [id number] 2020-Present [phone] [address] [place] [address] Medicaid [id number] 2020 Medicaid [id number] 2020 Medicaid [id number] Social History Date Type Detail Facility Start: 01-06-2022 Tobacco smoking stat us [facility] Smokes tobacco daily [facility] Work Phone: History of tobacco use Cigarette Smoker [facility] Start: 07-18-2021 End: 01-28-2022 Alcohol intake Current non-drinker of alcohol (finding) [facility] Start: 1960 Sex Assigned At Not on file [facility] Start: 07-08-2021 End: 02-04-2022 Exposure to SARS-CoV-2 (event) Not sure [facility] Start: 03-14-2020 End: 01-06-2022 Cigarettes smoked current (pack per day) - Reported 2 [facility] Start: 01-06-2022 Tobacco use and exposure Smokeless tobacco non-user [facility] Start: 01-06-2022 Tobacco Comment started at age 14 [facility] Start: 03-14-2020 End: 01-28-2022 Tobacco use panel [facility] National Score (1-10 0), lower number is lower risk Not on file [facility] Medical Equipment Procedure Code Equipment Code Equipment Origin al Text Equipment Identifier Dates Start: 01-21-2016 Clinical Notes 04-01-2021 to 02-04-2022 Yamilka Baltazar MD - 02/04/2022 9:05 AM Marjorie Baltazar MD - 01/28/2022 5:38 PM EDTReHazel Van, RT(R) - 01/28/2022 10:00 AM Marjorie Baltazar MD - 01/06/2022 7:04 PM EDT Note Date & Type Note Facility 02-04-2022 Note HNO ID: [id number] Author: Yamilka Baltazar MD Service: ? Author Type: Physician Type: Progress Notes Filed: 02/04/2022 7:54 PM Note Text: Kana Corbett 1960 REFERRING PHYSICIAN: Yamilka Baltazar MD CHIEF COMPLAINT: Follow Up (Review CT scan for left groin pain) HPI: The patient is a 62 year old male presents with recurrent left groin hernia as confirmed by CT scan. He is s/p umbilical hernia repair and left inguinal (anterior) hernia repair with mesh in 2017. He admits to cigarettes use. However, patient states that it is not bothering him much at present. I have offered patient surgery, but he defers any surgery for now. PAST MEDICAL HISTORY Diagnosis Date Arthritis Asthma Carotid atherosclerosis Coronary artery disease Diabetes mellitus type 2 in obese (HCC) GERD (gastroesophageal reflux disease) History of non-ST elevation myocardial infarction (NSTEMI) 06/11/2018 Hyperlipidemia Call Center Specialist Dr. Herrera Espinosa Hypertension Other emphysema (HCC) Pancreatitis Stenosis of right carotid artery Tobacco use disorder PAST SURGICAL HISTORY Procedure Laterality Date CAROTID ENDARTERECTOMY Right 01/06/2014 CORONARY ARTERY BYPASS GRAFT 2007 LEFT HEART CATH,PERCUTANEOUS 06/11/2018 RPR 1ST INGUN HRNA AGE 5 YRS/> REDUCIBLE 01/20/2017 Hernia repair, inguinal left Current Outpatient Medications Medication Sig atenolol (TENORMIN) 50 mg tablet Take 50 mg by mouth once daily. atorvastatin (LIPITOR) 40 mg tablet Take 40 mg by mouth once daily. clopidogrel (PLAVIX) 75 mg tablet Take 75 mg by mouth once daily. isosorbide mononitrate ER (IMDUR) 30 mg 24 hr tablet Take 30 mg by mouth once daily. nitroglycerin sublingual (NITROQUICK) 0.4 mg SL tablet Dissolve 0.4 mg under the tongue every 5 minutes as needed. fenofibrate (LOFIBRA) 134 mg capsule Take 134 mg by mouth daily with breakfast. insulin NPH-insulin regular injection Inject 28 Units subcutaneously Daily Before Breakfast. insulin NPH hum/reg insulin hm (HUMULIN 70/30 U-100 KWIKPEN SUBCUTANEOUS) Inject 22 Units subcutaneously daily before dinner. busPIRone (BUSPAR) 5 mg tablet Take 5 mg by mouth twice daily. Lancets lancets Test blood sugar(s) 2 daily. Dx: E11.65 Insulin: Yes insulin needles, DISPOSABLE, (PEN NEEDLE) 31 gauge x 5/16 ndle Use one needle per dose. 1 per day. Blood-Glucose Meter monitoring kit Glucose Meter of Choice - Kit - Dx: Type 2 DM - Uncontrolled E11.65 blood sugar diagnostic (BLOOD GLUCOSE TEST) test strip Test blood sugar(s) 2 daily. Dx: E11.65. Insulin: Yes albuterol HFA (PROAIR HFA) 90 mcg/actuation inhaler Inhale 2 Puffs as instructed every 4 hours as needed for Wheezing/Shortness of Breath. losartan (COZAAR) 50 mg tablet Take 50 mg by mouth once daily. aspirin 325 mg tablet Take 81 mg by mouth once daily. DOCOSAHEXANOIC ACID/EPA (FISH OIL ORAL) Take by mouth. benzonatate (TESSALON PERLE) 100 mg capsule Take 2 capsules by mouth three times daily as needed. (Patient not taking: Reported on 07/18/2021 ) nicotine (NICODERM CQ) 21 mg/24 hr Apply 1 Patch as directed every 24 hours. (Patient not taking: Reported on 07/18/2021 ) albuterol HFA (VENTOLIN HFA) 90 mcg/actuation inhaler Inhale 2 Puffs as instructed every 4 hours as needed for Wheezing/Shortness of Breath. (Patient not taking: Reported on 05/05/2019 ) predniSONE (DELTASONE) 20 mg tablet Take 2 tablets by mouth once daily. (Patient not taking: Reported on 07/18/2021 ) mupirocin (BACTROBAN) 2 % ointment Apply 1 application to affected area three times daily. Location: back (Patient not taking: Reported on 05/05/2019 ) triamcinolone acetonide (KENALOG) 0.1 % cream Apply 1 application to affected area three times daily. Apply sparingly to area for rash/itching. (Patient not taking: Reported on 10/15/2017 ) ALLERGIES: Amoxicillin, Lindane, and Lodine [Etodolac] REVIEW OF SYSTEMS: Denies fevers. PHYSICAL EXAMINATION: General: The patient is 62 year old male, well nourished, well hydrated in no acute distress. The patient is oriented to time, place, and person. VITALS: Blood pressure 128/74, pulse 80, temperature 36.7 ?C (98 ?F), weight 87.2 kg (192 lb 3.2 oz), SpO2 98 %. Body mass index is 26.81 kg/m?. Head: Normal cephalic, atraumatic Eyes: pupils are equally round, sclera are clear/anicteric Neck is supple with no tracheal deviation Respiratory: Normal respiratory excursion and pattern. Abdominal exam: benign Extremities: no clubbing, cyanosis or edema. Neuro: non focal Psych: normal mood Assessment IMPRESSION: recurrent left inguinal hernia PLAN: I have discussed the above with the patient. I have offered repair of recurrent left inguinal hernia. I have explained the procedure to the patient. I have explained the risks/benefits of the procedure. I have discussed the risks with the patient, including but not limited to: infection, bleeding, injury to any blood vessels/nerv (more content not included)... [facility] 02-04-2022 History of Present illness Narrative Kana Corbett 1960 REFERRING PHYSICIAN: Yamilka Baltazar MD CHIEF COMPLAINT: Follow Up (Review CT scan for left groin pain) HPI: The patient is a 62 year old male presents with recurrent left groin hernia as confirmed by CT scan. He is s/p umbilical hernia repair and left inguinal (anterior) hernia repair with mesh in 2017. He admits to cigarettes use. However, patient states that it is not bothering him much at present. I have offered patient surgery, but he defers any surgery for now. PAST MEDICAL HISTORY Diagnosis Date Arthritis Asthma Carotid atherosclerosis Coronary artery disease Diabetes mellitus type 2 in obese (HCC) GERD (gastroesophageal reflux disease) History of non-ST elevation myocardial infarction (NSTEMI) 06/11/2018 Hyperlipidemia [address] Specialist Dr. Herrera Espinosa Hypertension Other emphysema (HCC) Pancreatitis Stenosis of right carotid artery Tobacco use disorder PAST SURGICAL HISTORY Procedure Laterality Date CAROTID ENDARTERECTOMY Right 01/06/2014 CORONARY ARTERY BYPASS GRAFT 2006 LEFT HEART CATH,PERCUTANEOUS 06/11/2018 RPR 1ST INGUN HRNA AGE 5 YRS/> REDUCIBLE 01/20/2017 Hernia repair, inguinal left Current Outpatient Medications Medication Sig atenolol (TENORMIN) 50 mg tablet Take 50 mg by mouth once daily. atorvastatin (LIPITOR) 40 mg tablet Take 40 mg by mouth once daily. clopidogrel (PLAVIX) 75 mg tablet Take 75 mg by mouth once daily. isosorbide mononitrate ER (IMDUR) 30 mg 24 hr tablet Take 30 mg by mouth once daily. nitroglycerin sublingual (NITROQUICK) 0.4 mg SL tablet Dissolve 0.4 mg under the tongue every 5 minutes as needed. fenofibrate (LOFIBRA) 134 mg capsule Take 134 mg by mouth daily with breakfast. insulin NPH-insulin regular injection Inject 28 Units subcutaneously Daily Before Breakfast. insulin NPH hum/reg insulin hm (HUMULIN 70/30 U-100 KWIKPEN SUBCUTANEOUS) Inject 22 Units subcutaneously daily before dinner. busPIRone (BUSPAR) 5 mg tablet Take 5 mg by mouth twice daily. Lancets lancets Test blood sugar(s) 2 daily. Dx: E11.65 Insulin: Yes insulin needles, DISPOSABLE, (PEN NEEDLE) 31 gauge x 5/16 ndle Use one needle per dose. 1 per day. Blood-Glucose Meter monitoring kit Glucose Meter of Choice - Kit - Dx: Type 2 DM - Uncontrolled E11.65 blood sugar diagnostic (BLOOD GLUCOSE TEST) test strip Test blood sugar(s) 2 daily. Dx: E11.65. Insulin: Yes albuterol HFA (PROAIR HFA) 90 mcg/actuation inhaler Inhale 2 Puffs as instructed every 4 hours as needed for Wheezing/Shortness of Breath. losartan (COZAAR) 50 mg tablet Take 50 mg by mouth once daily. aspirin 325 mg tablet Take 81 mg by mouth once daily. DOCOSAHEXANOIC ACID/EPA (FISH OIL ORAL) Take by mouth. benzonatate (TESSALON PERLE) 100 mg capsule Take 2 capsules by mouth three times daily as needed. (Patient not taking: Reported on 07/18/2021 ) nicotine (NICODERM CQ) 21 mg/24 hr Apply 1 Patch as directed every 24 hours. (Patient not taking: Reported on 07/18/2021 ) albuterol HFA (VENTOLIN HFA) 90 mcg/actuation inhaler Inhale 2 Puffs as instructed every 4 hours as needed for Wheezing/Shortness of Breath. (Patient not taking: Reported on 05/05/2019 ) predniSONE (DELTASONE) 20 mg tablet Take 2 tablets by mouth once daily. (Patient not taking: Reported on 07/18/2021 ) mupirocin (BACTROBAN) 2 % ointment Apply 1 application to affected area three times daily. Location: back (Patient not taking: Reported on 05/05/2019 ) triamcinolone acetonide (KENALOG) 0.1 % cream Apply 1 application to affected area three times daily. Apply sparingly to area for rash/itching. (Patient not taking: Reported on 10/15/2017 ) ALLERGIES: Amoxicillin, Lindane, and Lodine [Etodolac] REVIEW OF SYSTEMS: Denies fevers. PHYSICAL EXAMINATION: General: The patient is 62 year old male, well nourished, well hydrated in no acute distress. The patient is oriented to time, place, and person. VITALS: Blood pressure 128/74, pulse 80, temperature 36.7 C (98 F), weight 87.2 kg (192 lb 3.2 oz), SpO2 98 %. Body mass index is 26.81 kg/m . Head: Normal cephalic, atraumatic Eyes: pupils are equally round, sclera are clear/anicteric Neck is supple with no tracheal deviation Respiratory: Normal respiratory excursion and pattern. Abdominal exam: benign Extremities: no clubbing, cyanosis or edema. Neuro: non focal Psych: normal mood Assessment IMPRESSION: recurrent left inguinal hernia PLAN: I have discussed the above with the patient. I have offered repair of recurrent left inguinal hernia. I have explained the procedure to the patient. I have explained the risks/benefits of the procedure. I have discussed the risks with the patient, including but not limited to: infection, bleeding, injury to any blood vessels/nerves, injury to any bowel/bladder, injury to the spermatic cord, injury to the testicle, scar tissue, chronic groin pain, recurrence of hernia, seroma/swelling, wound infections, cosmetic deformity, etc. - the patient understands The patient defers surgery for the present. I have answered all questions to the patient s satisfaction and the patient has no further questions. I have encouraged him to return to clinic if worsening signs/symptoms. I have confirmed and edited as necessary, the PFSH and ROS obtained by others. . Diagnoses: (K40.91) Recurrent left inguinal hernia (primary encounter diagnosis) Return to Clinic: The patient is instructed to follow-up with me as above. Medical Decision Making: Problems: Low: Stable chronic illness Data: Unique test result(s) reviewed: 1 Medical Decision Making Level: 2 - Straightforward Yamilka Baltazar MD documented in this encounter [facility] 01-28-2022 Note HNO ID: [id number] Author: Yamilka Baltazar MD Service: ? Author Type: Physician Type: Progress Notes Filed: 01/29/2022 6:15 PM Note Text: Kana Corbett 1960 REFERRING PHYSICIAN: Self CHIEF COMPLAINT: Follow Up (Hernia) HPI: The patient is a 62 year old male with left groin bulge. He just underwent a CT scan today, but no results yet. PAST MEDICAL HISTORY Diagnosis Date Arthritis Asthma Carotid atherosclerosis Coronary artery disease Diabetes mellitus type 2 in obese (HCC) GERD (gastroesophageal reflux disease) History of non-ST elevation myocardial infarction (NSTEMI) 06/11/2018 Hyperlipidemia [address] Center Specialist Dr. Herrera Espinosa Hypertension Other emphysema (HCC) Pancreatitis Stenosis of right carotid artery Tobacco use disorder PAST SURGICAL HISTORY Procedure Laterality Date CAROTID ENDARTERECTOMY Right 01/06/2014 CORONARY ARTERY BYPASS GRAFT 2007 LEFT HEART CATH,PERCUTANEOUS 06/11/2018 RPR 1ST INGUN HRNA AGE 5 YRS/> REDUCIBLE 01/20/2017 Hernia repair, inguinal left Current Outpatient Medications Medication Sig atenolol (TENORMIN) 50 mg tablet Take 50 mg by mouth once daily. atorvastatin (LIPITOR) 40 mg tablet Take 40 mg by mouth once daily. clopidogrel (PLAVIX) 75 mg tablet Take 75 mg by mouth once daily. isosorbide mononitrate ER (IMDUR) 30 mg 24 hr tablet Take 30 mg by mouth once daily. nitroglycerin sublingual (NITROQUICK) 0.4 mg SL tablet Dissolve 0.4 mg under the tongue every 5 minutes as needed. fenofibrate (LOFIBRA) 134 mg capsule Take 134 mg by mouth daily with breakfast. insulin NPH-insulin regular injection Inject 28 Units subcutaneously Daily Before Breakfast. insulin NPH hum/reg insulin hm (HUMULIN 70/30 U-100 KWIKPEN SUBCUTANEOUS) Inject 22 Units subcutaneously daily before dinner. busPIRone (BUSPAR) 5 mg tablet Take 5 mg by mouth twice daily. Lancets lancets Test blood sugar(s) 2 daily. Dx: E11.65 Insulin: Yes insulin needles, DISPOSABLE, (PEN NEEDLE) 31 gauge x 5/16 ndle Use one needle per dose. 1 per day. Blood-Glucose Meter monitoring kit Glucose Meter of Choice - Kit - Dx: Type 2 DM - Uncontrolled E11.65 blood sugar diagnostic (BLOOD GLUCOSE TEST) test strip Test blood sugar(s) 2 daily. Dx: E11.65. Insulin: Yes albuterol HFA (PROAIR HFA) 90 mcg/actuation inhaler Inhale 2 Puffs as instructed every 4 hours as needed for Wheezing/Shortness of Breath. losartan (COZAAR) 50 mg tablet Take 50 mg by mouth once daily. DOCOSAHEXANOIC ACID/EPA (FISH OIL ORAL) Take by mouth. benzonatate (TESSALON PERLE) 100 mg capsule Take 2 capsules by mouth three times daily as needed. (Patient not taking: Reported on 07/18/2021 ) nicotine (NICODERM CQ) 21 mg/24 hr Apply 1 Patch as directed every 24 hours. (Patient not taking: Reported on 07/18/2021 ) albuterol HFA (VENTOLIN HFA) 90 mcg/actuation inhaler Inhale 2 Puffs as instructed every 4 hours as needed for Wheezing/Shortness of Breath. (Patient not taking: Reported on 05/05/2019 ) predniSONE (DELTASONE) 20 mg tablet Take 2 tablets by mouth once daily. (Patient not taking: Reported on 07/18/2021 ) mupirocin (BACTROBAN) 2 % ointment Apply 1 application to affected area three times daily. Location: back (Patient not taking: Reported on 05/05/2019 ) triamcinolone acetonide (KENALOG) 0.1 % cream Apply 1 application to affected area three times daily. Apply sparingly to area for rash/itching. (Patient not taking: Reported on 10/15/2017 ) aspirin 325 mg tablet Take 81 mg by mouth once daily. ALLERGIES: Amoxicillin, Lindane, and Lodine [Etodolac] REVIEW OF SYSTEMS: Denies fevers PHYSICAL EXAMINATION: General: The patient is 62 year old male, well nourished, well hydrated in no acute distress. The patient is oriented to time, place, and person. VITALS: Blood pressure 124/70, pulse 79, temperature 36.3 ?C (97.3 ?F), height 180.3 cm (5' 11 ), weight 87.4 kg (192 lb 9.6 oz), SpO2 98 %. Body mass index is 26.86 kg/m?. Head: Normal cephalic, atraumatic Eyes: pupils are equally round, sclera are clear/anicteric Neck is supple with no tracheal deviation Respiratory: Normal respiratory excursion and pattern. Abdominal exam: benign Extremities: no clubbing, cyanosis or edema. Neuro: non focal Psych: normal mood Assessment IMPRESSION: left groin bulge, awaiting CT scan results PLAN: I have discussed the above with the patient. Will await CT scan results and discuss further treatment. The patient acknowledges the above. I have answered all questions to the patient?s satisfaction and the patient has no further questions. I have confirmed and edited as necessary, the PFSH and ROS obtained by others. . Diagnoses: (R10.32) Left groin pain (primary encounter diagnosis) Return to Clinic: The patient will follow up with me next week. I spent a total of 5 minutes on the date of the service which included preparing to see the patient, and completing appropriate m (more content not included)... [facility] 01-28-2022 History of Present illness Narrative Kana Corbett 1960 REFERRING PHYSICIAN: Self CHIEF COMPLAINT: Follow Up (Hernia) HPI: The patient is a 62 year old male with left groin bulge. He just underwent a CT scan today, but no results yet. PAST MEDICAL HISTORY Diagnosis Date Arthritis Asthma Carotid atherosclerosis Coronary artery disease Diabetes mellitus type 2 in obese (HCC) GERD (gastroesophageal reflux disease) History of non-ST elevation myocardial infarction (NSTEMI) 06/11/2018 [address] Center Specialist Dr. Herrera Espinosa Hypertension Other emphysema (HCC) Pancreatitis Stenosis of right carotid artery Tobacco use disorder PAST SURGICAL HISTORY Procedure Laterality Date CAROTID ENDARTERECTOMY Right 01/06/2014 CORONARY ARTERY BYPASS GRAFT 2006 LEFT HEART CATH,PERCUTANEOUS 06/11/2018 RPR 1ST INGUN HRNA AGE 5 YRS/> REDUCIBLE 01/20/2017 Hernia repair, inguinal left Current Outpatient Medications Medication Sig atenolol (TENORMIN) 50 mg tablet Take 50 mg by mouth once daily. atorvastatin (LIPITOR) 40 mg tablet Take 40 mg by mouth once daily. clopidogrel (PLAVIX) 75 mg tablet Take 75 mg by mouth once daily. isosorbide mononitrate ER (IMDUR) 30 mg 24 hr tablet Take 30 mg by mouth once daily. nitroglycerin sublingual (NITROQUICK) 0.4 mg SL tablet Dissolve 0.4 mg under the tongue every 5 minutes as needed. fenofibrate (LOFIBRA) 134 mg capsule Take 134 mg by mouth daily with breakfast. insulin NPH-insulin regular injection Inject 28 Units subcutaneously Daily Before Breakfast. insulin NPH hum/reg insulin hm (HUMULIN 70/30 U-100 KWIKPEN SUBCUTANEOUS) Inject 22 Units subcutaneously daily before dinner. busPIRone (BUSPAR) 5 mg tablet Take 5 mg by mouth twice daily. Lancets lancets Test blood sugar(s) 2 daily. Dx: E11.65 Insulin: Yes insulin needles, DISPOSABLE, (PEN NEEDLE) 31 gauge x 5/16 ndle Use one needle per dose. 1 per day. Blood-Glucose Meter monitoring kit Glucose Meter of Choice - Kit - Dx: Type 2 DM - Uncontrolled E11.65 blood sugar diagnostic (BLOOD GLUCOSE TEST) test strip Test blood sugar(s) 2 daily. Dx: E11.65. Insulin: Yes albuterol HFA (PROAIR HFA) 90 mcg/actuation inhaler Inhale 2 Puffs as instructed every 4 hours as needed for Wheezing/Shortness of Breath. losartan (COZAAR) 50 mg tablet Take 50 mg by mouth once daily. DOCOSAHEXANOIC ACID/EPA (FISH OIL ORAL) Take by mouth. benzonatate (TESSALON PERLE) 100 mg capsule Take 2 capsules by mouth three times daily as needed. (Patient not taking: Reported on 07/18/2021 ) nicotine (NICODERM CQ) 21 mg/24 hr Apply 1 Patch as directed every 24 hours. (Patient not taking: Reported on 07/18/2021 ) albuterol HFA (VENTOLIN HFA) 90 mcg/actuation inhaler Inhale 2 Puffs as instructed every 4 hours as needed for Wheezing/Shortness of Breath. (Patient not taking: Reported on 05/05/2019 ) predniSONE (DELTASONE) 20 mg tablet Take 2 tablets by mouth once daily. (Patient not taking: Reported on 07/18/2021 ) mupirocin (BACTROBAN) 2 % ointment Apply 1 application to affected area three times daily. Location: back (Patient not taking: Reported on 05/05/2019 ) triamcinolone acetonide (KENALOG) 0.1 % cream Apply 1 application to affected area three times daily. Apply sparingly to area for rash/itching. (Patient not taking: Reported on 10/15/2017 ) aspirin 325 mg tablet Take 81 mg by mouth once daily. ALLERGIES: Amoxicillin, Lindane, and Lodine [Etodolac] REVIEW OF SYSTEMS: Denies fevers PHYSICAL EXAMINATION: General: The patient is 62 year old male, well nourished, well hydrated in no acute distress. The patient is oriented to time, place, and person. VITALS: Blood pressure 124/70, pulse 79, temperature 36.3 C (97.3 F), height 180.3 cm (5' 11 ), weight 87.4 kg (192 lb 9.6 oz), SpO2 98 %. Body mass index is 26.86 kg/m . Head: Normal cephalic, atraumatic Eyes: pupils are equally round, sclera are clear/anicteric Neck is supple with no tracheal deviation Respiratory: Normal respiratory excursion and pattern. Abdominal exam: benign Extremities: no clubbing, cyanosis or edema. Neuro: non focal Psych: normal mood Assessment IMPRESSION: left groin bulge, awaiting CT scan results PLAN: I have discussed the above with the patient. Will await CT scan results and discuss further treatment. The patient acknowledges the above. I have answered all questions to the patient s satisfaction and the patient has no further questions. I have confirmed and edited as necessary, the PFSH and ROS obtained by others. . Diagnoses: (R10.32) Left groin pain (primary encounter diagnosis) Return to Clinic: The patient will follow up with me next week. I spent a total of 5 minutes on the date of the service which included preparing to see the patient, and completing appropriate medical documentation. Yamilka Baltazar MD documented in this encounter [facility] 01-28-2022 Note HNO ID: [id number] Author: ROBLES Leblanc) Service: ? Author Type: Quarantine Inspector Type: Progress Notes Filed: 01/28/2022 3:01 PM Note Text: Radiology Service Progress Note PATIENT NAME: Kana Corbett DATE OF SERVICE: January 28, 2022 TIME: 3:01 PM PATIENT IDENTITY VERIFICATION COMPLETED USING TWO (2) IDENTIFIERS: Name and Date of confirmed by patient verbally. FALL SCREENING: Has the patient had 2 falls in the last year or 1 fall with injury or currently using an Ambulatory Assistive Device (Walker, Cane, Wheelchair, Crutches, etc.)? No PATIENT GENDER DATA: Male PATIENT RELEVANT IMPLANT DATA REVIEWED: Yes RADIOLOGY DEPARTMENT: CT; Exam(s) Completed: Pelvis PERIPHERAL IV DATA: Not applicable SIGNED BY: RT Betsy(Suman) January 28, 2022 3:01 PM [facility] 01-28-2022 History of Present illness Narrative Radiology Service Progress Note PATIENT NAME: Kana Corbett DATE OF SERVICE: January 28, 2022 TIME: 3:01 PM PATIENT IDENTITY VERIFICATION COMPLETED USING TWO (2) IDENTIFIERS: Name and Date of confirmed by patient verbally. FALL SCREENING: Has the patient had 2 falls in the last year or 1 fall with injury or currently using an Ambulatory Assistive Device (Walker, Cane, Wheelchair, Crutches, etc.)? No PATIENT GENDER DATA: Male PATIENT RELEVANT IMPLANT DATA REVIEWED: Yes RADIOLOGY DEPARTMENT: CT; Exam(s) Completed: Pelvis PERIPHERAL IV DATA: Not applicable SIGNED BY: RT Betsy(R) January 28, 2022 3:01 PM documented in this encounter [facility] 01-06-2022 Note HNO ID: [id number] Author: Yamilka Baltazar MD Service: ? Author Type: Physician Type: Progress Notes Filed: 01/08/2022 12:57 PM Note Text: Kana Corbett 1960 REFERRING PHYSICIAN: Self CHIEF COMPLAINT: Consult (Possible left inguinal hernia) HPI: The patient is a 61 year old male presents with left groin pain. This has been going on for several weeks. He notes a bulge in the area at times. He is s/p umbilical hernia and left inguinal hernia (anterior) repair by me in 2016 Patient denies gastrointestinal or urinary obstructive symptoms He still admits to cigarettes smoking, but he states that he is down to 1 ppd. PAST MEDICAL HISTORY Diagnosis Date Arthritis Asthma Carotid atherosclerosis Coronary artery disease Diabetes mellitus type 2 in obese (HCC) GERD (gastroesophageal reflux disease) History of non-ST elevation myocardial infarction (NSTEMI) 06/11/2018 Hyperlipidemia [address] Specialist Dr. Herrera Espinosa Hypertension Other emphysema (HCC) Pancreatitis Stenosis of right carotid artery Tobacco use disorder PAST SURGICAL HISTORY Procedure Laterality Date CAROTID ENDARTERECTOMY Right 01/06/2014 CORONARY ARTERY BYPASS GRAFT 2007 LEFT HEART CATH,PERCUTANEOUS 06/11/2018 RPR 1ST INGUN HRNA AGE 5 YRS/> REDUCIBLE 01/20/2017 Hernia repair, inguinal left Current Outpatient Medications Medication Sig atenolol (TENORMIN) 50 mg tablet Take 50 mg by mouth once daily. atorvastatin (LIPITOR) 40 mg tablet Take 40 mg by mouth once daily. clopidogrel (PLAVIX) 75 mg tablet Take 75 mg by mouth once daily. isosorbide mononitrate ER (IMDUR) 30 mg 24 hr tablet Take 30 mg by mouth once daily. nitroglycerin sublingual (NITROQUICK) 0.4 mg SL tablet Dissolve 0.4 mg under the tongue every 5 minutes as needed. fenofibrate (LOFIBRA) 134 mg capsule Take 134 mg by mouth daily with breakfast. insulin NPH-insulin regular injection Inject 28 Units subcutaneously Daily Before Breakfast. insulin NPH hum/reg insulin hm (HUMULIN 70/30 U-100 KWIKPEN SUBCUTANEOUS) Inject 22 Units subcutaneously daily before dinner. busPIRone (BUSPAR) 5 mg tablet Take 5 mg by mouth twice daily. Lancets lancets Test blood sugar(s) 2 daily. Dx: E11.65 Insulin: Yes insulin needles, DISPOSABLE, (PEN NEEDLE) 31 gauge x 5/16 ndle Use one needle per dose. 1 per day. Blood-Glucose Meter monitoring kit Glucose Meter of Choice - Kit - Dx: Type 2 DM - Uncontrolled E11.65 blood sugar diagnostic (BLOOD GLUCOSE TEST) test strip Test blood sugar(s) 2 daily. Dx: E11.65. Insulin: Yes albuterol HFA (PROAIR HFA) 90 mcg/actuation inhaler Inhale 2 Puffs as instructed every 4 hours as needed for Wheezing/Shortness of Breath. losartan (COZAAR) 50 mg tablet Take 50 mg by mouth once daily. aspirin 325 mg tablet Take 325 mg by mouth once daily. DOCOSAHEXANOIC ACID/EPA (FISH OIL ORAL) Take by mouth. enteric contrast (will be provided with radiology test) For CT PELVIS WO IVCON order Administer, As Directed One Time Only, via Oral, Rectal, both Oral and Rectal, Enteric Tube, Stoma or Indwelling Catheter, Enteric Contrast as designated per enteric contrast guidelines benzonatate (TESSALON PERLE) 100 mg capsule Take 2 capsules by mouth three times daily as needed. (Patient not taking: Reported on 07/18/2021 ) nicotine (NICODERM CQ) 21 mg/24 hr Apply 1 Patch as directed every 24 hours. (Patient not taking: Reported on 07/18/2021 ) albuterol HFA (VENTOLIN HFA) 90 mcg/actuation inhaler Inhale 2 Puffs as instructed every 4 hours as needed for Wheezing/Shortness of Breath. (Patient not taking: Reported on 05/05/2019 ) predniSONE (DELTASONE) 20 mg tablet Take 2 tablets by mouth once daily. (Patient not taking: Reported on 07/18/2021 ) mupirocin (BACTROBAN) 2 % ointment Apply 1 application to affected area three times daily. Location: back (Patient not taking: Reported on 05/05/2019 ) triamcinolone acetonide (KENALOG) 0.1 % cream Apply 1 application to affected area three times daily. Apply sparingly to area for rash/itching. (Patient not taking: Reported on 10/15/2017 ) ALLERGIES: Amoxicillin, Lindane, and Lodine [Etodolac] PERSONAL HISTORY: Social History Tobacco Use Smoking status: Every Day Packs/day: 2.00 Years: 31.00 Pack years: 62.00 Types: Cigarettes Smokeless tobacco: Never Tobacco comments: started at age 14 Vaping Use Vaping Use: Never used Substance Use Topics Alcohol use: No Drug use: No FAMILY HISTORY Problem Relation Age of Onset Diabetes Mother Hypertension Father Diabetes Father Asthma Father Alcohol abuse Father Arthritis Father Heart disease Father Hyperlipidemia Father Stroke Father Lung Cancer Father None Sister Heart Attack Paternal Grandfather Diabetes Paternal Uncle The review of systems data was entered by the nurse and reviewed by me Nursing Notes: Allison Haines RN 01/06/2022 9:32 AM Signed REVIEW OF SYSTEMS: General: (more content not included)... [facility] 01-06-2022 History of Present illness Narrative Kana Corbett 1960 REFERRING PHYSICIAN: Self CHIEF COMPLAINT: Consult (Possible left inguinal hernia) HPI: The patient is a 61 year old male presents with left groin pain. This has been going on for several weeks. He notes a bulge in the area at times. He is s/p umbilical hernia and left inguinal hernia (anterior) repair by me in 2017 Patient denies gastrointestinal or urinary obstructive symptoms He still admits to cigarettes smoking, but he states that he is down to 1 ppd. PAST MEDICAL HISTORY Diagnosis Date Arthritis Asthma Carotid atherosclerosis Coronary artery disease Diabetes mellitus type 2 in obese (HCC) GERD (gastroesophageal reflux disease) History of non-ST elevation myocardial infarction (NSTEMI) 06/11/[address]lipidemia [address] Specialist Dr. Herrera Espinosa Hypertension Other emphysema (HCC) Pancreatitis Stenosis of right carotid artery Tobacco use disorder PAST SURGICAL HISTORY Procedure Laterality Date CAROTID ENDARTERECTOMY Right 01/06/2014 CORONARY ARTERY BYPASS GRAFT 2007 LEFT HEART CATH,PERCUTANEOUS 06/11/2018 RPR 1ST INGUN HRNA AGE 5 YRS/> REDUCIBLE 01/20/2017 Hernia repair, inguinal left Current Outpatient Medications Medication Sig atenolol (TENORMIN) 50 mg tablet Take 50 mg by mouth once daily. atorvastatin (LIPITOR) 40 mg tablet Take 40 mg by mouth once daily. clopidogrel (PLAVIX) 75 mg tablet Take 75 mg by mouth once daily. isosorbide mononitrate ER (IMDUR) 30 mg 24 hr tablet Take 30 mg by mouth once daily. nitroglycerin sublingual (NITROQUICK) 0.4 mg SL tablet Dissolve 0.4 mg under the tongue every 5 minutes as needed. fenofibrate (LOFIBRA) 134 mg capsule Take 134 mg by mouth daily with breakfast. insulin NPH-insulin regular injection Inject 28 Units subcutaneously Daily Before Breakfast. insulin NPH hum/reg insulin hm (HUMULIN 70/30 U-100 KWIKPEN SUBCUTANEOUS) Inject 22 Units subcutaneously daily before dinner. busPIRone (BUSPAR) 5 mg tablet Take 5 mg by mouth twice daily. Lancets lancets Test blood sugar(s) 2 daily. Dx: E11.65 Insulin: Yes insulin needles, DISPOSABLE, (PEN NEEDLE) 31 gauge x 5/16 ndle Use one needle per dose. 1 per day. Blood-Glucose Meter monitoring kit Glucose Meter of Choice - Kit - Dx: Type 2 DM - Uncontrolled E11.65 blood sugar diagnostic (BLOOD GLUCOSE TEST) test strip Test blood sugar(s) 2 daily. Dx: E11.65. Insulin: Yes albuterol HFA (PROAIR HFA) 90 mcg/actuation inhaler Inhale 2 Puffs as instructed every 4 hours as needed for Wheezing/Shortness of Breath. losartan (COZAAR) 50 mg tablet Take 50 mg by mouth once daily. aspirin 325 mg tablet Take 325 mg by mouth once daily. DOCOSAHEXANOIC ACID/EPA (FISH OIL ORAL) Take by mouth. enteric contrast (will be provided with radiology test) For CT PELVIS WO IVCON order Administer, As Directed One Time Only, via Oral, Rectal, both Oral and Rectal, Enteric Tube, Stoma or Indwelling Catheter, Enteric Contrast as designated per enteric contrast guidelines benzonatate (TESSALON PERLE) 100 mg capsule Take 2 capsules by mouth three times daily as needed. (Patient not taking: Reported on 07/18/2021 ) nicotine (NICODERM CQ) 21 mg/24 hr Apply 1 Patch as directed every 24 hours. (Patient not taking: Reported on 07/18/2021 ) albuterol HFA (VENTOLIN HFA) 90 mcg/actuation inhaler Inhale 2 Puffs as instructed every 4 hours as needed for Wheezing/Shortness of Breath. (Patient not taking: Reported on 05/05/2019 ) predniSONE (DELTASONE) 20 mg tablet Take 2 tablets by mouth once daily. (Patient not taking: Reported on 07/18/2021 ) mupirocin (BACTROBAN) 2 % ointment Apply 1 application to affected area three times daily. Location: back (Patient not taking: Reported on 05/05/2019 ) triamcinolone acetonide (KENALOG) 0.1 % cream Apply 1 application to affected area three times daily. Apply sparingly to area for rash/itching. (Patient not taking: Reported on 10/15/2017 ) ALLERGIES: Amoxicillin, Lindane, and Lodine [Etodolac] PERSONAL HISTORY: Social History Tobacco Use Smoking status: Every Day Packs/day: 2.00 Years: 31.00 Pack years: 62.00 Types: Cigarettes Smokeless tobacco: Never Tobacco comments: started at age 14 Vaping Use Vaping Use: Never used Substance Use Topics Alcohol use: No Drug use: No FAMILY HISTORY Problem Relation Age of Onset Diabetes Mother Hypertension Father Diabetes Father Asthma Father Alcohol abuse Father Arthritis Father Heart disease Father Hyperlipidemia Father Stroke Father Lung Cancer Father None Sister Heart Attack Paternal Grandfather Diabetes Paternal Uncle The review of systems data was entered by the nurse and reviewed by nm Nursing Notes: Allison Haines RN 01/06/2022 9:32 AM Signed REVIEW OF SYSTEMS: General: The patient denies fatigue, denies weight loss, denies weight gain, denies feeling hot, and denies feelings of cold. Eyes: The patient denies glaucoma, denies eye injury/surgery, wears glasses or contacts. Ear/Nose/Throat: The patient NOTES allergies, denies hayfever, denies ear infections, and denies bloody noses. Cardiovascular: The patient denies chest pain, NOTES heart disease, NOTES high blood pressure,denies cardiac stent, NOTES prior heart attack, denies irregular heart beat, NOTES high cholesterol, denies poor circulation, denies heart failure, other cardiac issues, denies claudication, denies cold feet, denies peripheral arterial stent. Respiratory: The patient denies tuberculosis, denies pneumonia, denies frequent cough, denies pulmonary embolism, denies shortness of breath, and denies coughing up blood. Gastrointestinal: The patient denies difficulty swallowing, NOTES acid reflux, denies ulcers, denies vomiting, denies jaundice/hepatitis, denies gallbladder problems, denies black or tarry stools, denies hemorrhoids, denies bleeding from rectum, denies diverticulitis, denies constipation, denies diarrhea, denies loss of stool control, and NOTES hernias. Kidney/Bladder: The patient denies kidney stones, denies urine infections, and denies bloody urine. Skin: The patient denies a history of skin cancer, denies bleeding/changing moles, and denies a history of skin rash. Neurologic: The patient denies a history of epilepsy/convulsions, denies headaches, denies head/spinal injuries, and denies stroke/TIA. Psychiatric: The patient denies psychiatric medications, denies depression, and denies voices, denies substance abuse. Endocrine: The patient denies thyroid disorders, NOTES diabetes, and denies hormonal problems. Hematologic: The patient denies a history of bruising, denies bleeding, and denies anemia, denies blood clots. Infections: The patient denies a history of measles and mumps, denies rheumatic fever, and denies sexually transmitted diseases. Musculoskeletal: The patient denies back pain/injury, denies back problems, denies sciatica, denies knee/foot trouble, NOTES arthritis, or denies gout. When was patient's last Mammogram screening? N/A Last Colonoscopy: Unknown Allison Haines RN PHYSICAL EXAMINATION: General: The patient is 61 year old male, well nourished, well hydrated in no acute distress. The patient is oriented to time, place, and person. VITALS: Blood pressure 160/77, pulse 84, temperature 36.5 C (97.7 F), height 180.3 cm (5' ), weight 88.3 kg (194 lb 9.6 oz), SpO2 99 %. Body mass index is 27.14 kg/m . Head - Normocephalic. EOM intact with sclera clear and no icterus noted. Neck - supple with no jugular venous distention noted. Trachea is midline. Lungs - clear to auscultation. Normal breath sounds. No rales/rhonchi/wheezing noted. No labored breathing noted, such as retractions. No cough heard. Heart - normal S1 and S2 auscultated. No rubs/clicks/murmurs noted. Regular rate. Abdomen - truncal obesity, soft and benign and protuberant. Rectus diastasis present . Difficult to determine if any masses or organomegaly due to body habitus. Genitalia - normal male phallus, testes in normal anatomical position and no masses noted, possible left inguinal hernia versus fascial weakness, no right inguinal hernia detected Extremities - no calf tenderness noted. No pitting edema noted. Skin - normal skin integrity. Neurological - gait normal, no focal deficits noted. Psych - calm and appropriate Assessment IMPRESSION: possible left inguinal hernia recurrence PLAN: I have discussed the above with the patient. Will obtain pelvic CT scan to determine if left inguinal hernia is present. Patient to follow up with me after above. The patient acknowledges the above. I have answered all questions to the patient s satisfaction and the patient has no further questions. I have confirmed and edited as necessary, the PFSH and ROS obtained by others. . Diagnoses: (R10.32) Left groin pain (primary encounter diagnosis) Return to Clinic: The patient will follow up as above. I spent a total of 22 minutes on the date of the service which included preparing to see the patient with review of any pertinent laboratory studies/radiological imaging/medical records, [id number] patient care, obtaining oral medical history from the patient in this encounter, performing a medically appropriate examination, counseling and educating the patient/family/caregiver, and ordering and/or scheduling of medications/tests/procedures, and completing appropriate medical documentation. Yamilka Baltazar MD documented in this encounter [facility] 01-06-2022 Nurse Note REVIEW OF SYSTEMS: General: The patient denies fatigue, denies weight loss, denies weight gain, denies feeling hot, and denies feelings of cold. Eyes: The patient denies glaucoma, denies eye injury/surgery, wears glasses or contacts. Ear/Nose/Throat: The patient NOTES allergies, denies hayfever, denies ear infections, and denies bloody noses. Cardiovascular: The patient denies chest pain, NOTES heart disease, NOTES high blood pressure,denies cardiac stent, NOTES prior heart attack, denies irregular heart beat, NOTES high cholesterol, denies poor circulation, denies heart failure, other cardiac issues, denies claudication, denies cold feet, denies peripheral arterial stent. Respiratory: The patient denies tuberculosis, denies pneumonia, denies frequent cough, denies pulmonary embolism, denies shortness of breath, and denies coughing up blood. Gastrointestinal: The patient denies difficulty swallowing, NOTES acid reflux, denies ulcers, denies vomiting, denies jaundice/hepatitis, denies gallbladder problems, denies black or tarry stools, denies hemorrhoids, denies bleeding from rectum, denies diverticulitis, denies constipation, denies diarrhea, denies loss of stool control, and NOTES hernias. Kidney/Bladder: The patient denies kidney stones, denies urine infections, and denies bloody urine. Skin: The patient denies a history of skin cancer, denies bleeding/changing moles, and denies a history of skin rash. Neurologic: The patient denies a history of epilepsy/convulsions, denies headaches, denies head/spinal injuries, and denies stroke/TIA. Psychiatric: The patient denies psychiatric medications, denies depression, and denies voices, denies substance abuse. Endocrine: The patient denies thyroid disorders, NOTES diabetes, and denies hormonal problems. Hematologic: The patient denies a history of bruising, denies bleeding, and denies anemia, denies blood clots. Infections: The patient denies a history of measles and mumps, denies rheumatic fever, and denies sexually transmitted diseases. Musculoskeletal: The patient denies back pain/injury, denies back problems, denies sciatica, denies knee/foot trouble, NOTES arthritis, or denies gout. When was patient's last Mammogram screening? N/A Last Colonoscopy: Unknown Allison Haines RN documented in this encounter [facility] 07-18-2021 Note HNO ID: [id number] Author: Gab Culver APRN.[employer] Service: ? Author Type: Nurse Practitioner Type: Progress Notes Filed: 07/18/2021 1:57 PM Note Text: Subjective HPI Nontoxic-appearing male presents urgent care chief plaint cough nasal congestion. Duration of symptoms 2 days. Associated symptoms nasal congestion cough. Patient states he does have some chest congestion chest pain or shortness of breath only with coughing. This is only transient and does not last. Denies any known sick contacts. Denies any fever body aches chills productive cough chest pain shortness of breath pleuritic pain hemoptysis or change in bowel or bladder habits. Past medical history prescription medication use allergies reviewed. 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 atorvastatin (LIPITOR) 40 mg tablet Take 40 mg by mouth once daily. clopidogrel (PLAVIX) 75 mg tablet Take 75 mg by mouth once daily. isosorbide mononitrate ER (IMDUR) 30 mg 24 hr tablet Take 30 mg by mouth once daily. fenofibrate (LOFIBRA) 134 mg capsule Take 134 mg by mouth daily with breakfast. insulin 70/30 NPH/regular units/mL (HUMULIN 70/30 U-100 INSULIN) Inject 28 Units subcutaneously Daily Before Breakfast. insulin NPH hum/reg insulin hm (HUMULIN 70/30 U-100 KWIKPEN SUBCUTANEOUS) Inject 22 Units subcutaneously daily before dinner. busPIRone (BUSPAR) 5 mg tablet Take 5 mg by mouth twice daily. Lancets lancets Test blood sugar(s) 2 daily. Dx: E11.65 Insulin: Yes insulin needles, DISPOSABLE, (PEN NEEDLE) 31 gauge x 5/16 ndle Use one needle per dose. 1 per day. Blood-Glucose Meter monitoring kit Glucose Meter of Choice - Kit - Dx: Type 2 DM - Uncontrolled E11.65 blood sugar diagnostic (BLOOD GLUCOSE TEST) test strip Test blood sugar(s) 2 daily. Dx: E11.65. Insulin: Yes albuterol HFA (PROAIR HFA) 90 mcg/actuation inhaler Inhale 2 Puffs as instructed every 4 hours as needed for Wheezing/Shortness of Breath. losartan (COZAAR) 50 mg tablet Take 50 mg by mouth once daily. aspirin 325 mg tablet Take 325 mg by mouth once daily. DOCOSAHEXANOIC ACID/EPA (FISH OIL ORAL) Take by mouth. benzonatate (TESSALON PERLE) 100 mg capsule Take 2 capsules by mouth three times daily as needed. nicotine (NICODERM CQ) 21 mg/24 hr Apply 1 Patch as directed every 24 hours. nitroglycerin sublingual (NITROSTAT) 0.4 mg SL tablet Dissolve 0.4 mg under the tongue every 5 minutes as needed. albuterol HFA (VENTOLIN HFA) 90 mcg/actuation inhaler Inhale 2 Puffs as instructed every 4 hours as needed for Wheezing/Shortness of Breath. predniSONE (DELTASONE) 20 mg tablet Take 2 tablets by mouth once daily. mupirocin (BACTROBAN) 2 % ointment Apply 1 application to affected area three times daily. Location: back triamcinolone acetonide (KENALOG) 0.1 % cream Apply 1 application to affected area three times daily. Apply sparingly to area for rash/itching. FAMILY HISTORY Problem Relation Age of Onset - Diabetes Mother - Heart Father - Hypertension Father - Diabetes Father - Cancer Father stomach - None Sister - None Brother - Diabetes Paternal Uncle Social History Tobacco Use - Smoking status: Current Every Day Smoker Packs/day: 2.00 Years: 31.00 Pack years: 62.00 Types: Cigarettes - Smokeless tobacco: Never Used - Tobacco comment: started at age 14 Substance Use Topics - Alcohol use: No - Drug use: No BP 122/74 Pulse 100 Temp 36.7 ?C (98 ?F) Resp 18 Wt 88 kg (194 lb) SpO2 96% BMI 27.06 kg/m? hr 87 Review of Systems Constitutional: Negative for chills, fever and malaise/fatigue. HENT: Positive for congestion and sore throat. Negative for ear discharge, ear pain and sinus pain. Eyes: Negative for blurred vision, pain, discharge and redness. Respiratory: Positive for cough. Negative for hemoptysis, sputum production, shortness of breath, wheezing and stridor. Cardiovascular: Negative for chest pain. Gastrointestinal: Negative for abdominal pain, diarrhea, nausea and vomiting. Musculoskeletal: Negative for myalgias. Skin: Negative for itching and rash. Neurological: Positive for headaches. Negative for dizziness. Objective Physical Exam Constitutional: General: He is not in acute distress. Appearance: He is not diaphoretic (more content not included)... [facility] 07-18-2021 Instructions Gab Culver APRN.[facility] - 07/18/2021 1:15 PM EDT RESPIRATORY INFECTION GENERAL INFORMATION: An upper respiratory tract infection, or cold, is a viral infection of the airway passages. It can be caused by any one of almost 200 different viruses. Common symptoms include a runny or stuffy nose, sneezing, watery eyes, sore throat, cough, and slight fever. Colds are contagious, especially during the first 3 or 4 days and cannot be cured by antibiotics. They are spread by coughs, sneezes, and direct contact, especially [id number]. A respiratory tract infection usually clears up in a few days, but some people may be sick for a week or two. INSTRUCTIONS: 1. Be careful not to blow your nose too hard because this may cause a nosebleed. 2. Use a cool-mist humidifier (vaporizer) to increase air moisture. This will make it easier for you to breathe. Do not use hot steam. 3. Rest as much as possible and get plenty of sleep. 4. Wash your hands often, especially after you blow your nose. Cover your mouth and nose with a tissue when you sneeze or cough. 5. Drink plenty of clear fluids (8 glasses a day) such as water, fruit juice, tea, clear soups, and carbonated beverages. CONTACT YOUR DOCTOR IF : 1. Your fever lasts more than 3 days. 2. You have a sore throat that gets worse or you see white or yellow spots in your throat. 3. Your cough gets worse or lasts more than 10 days. 4. You develop a rash anywhere on your skin. 5. You have an earache or a headache. 6. You have thick greenish or yellowish discharge from your nose. RETURN IMMEDIATELY IF: 1. You cough up thick yellow, green, rodriguez, or bloody sputum. 2. You have difficulty breathing, pain in your chest, or your skin or nails look rodriguez or blue. 3. You have shaking chills or a temperature over 102 F (39 C). documented in this encounter [facility] 07-18-2021 History of Present illness Narrative Subjective HPI Nontoxic-appearing male presents urgent care chief plaint cough nasal congestion. Duration of symptoms 2 days. Associated symptoms nasal congestion cough. Patient states he does have some chest congestion chest pain or shortness of breath only with coughing. This is only transient and does not last. Denies any known sick contacts. Denies any fever body aches chills productive cough chest pain shortness of breath pleuritic pain hemoptysis or change in bowel or bladder habits. Past medical history prescription medication use allergies reviewed. 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 atorvastatin (LIPITOR) 40 mg tablet Take 40 mg by mouth once daily. clopidogrel (PLAVIX) 75 mg tablet Take 75 mg by mouth once daily. isosorbide mononitrate ER (IMDUR) 30 mg 24 hr tablet Take 30 mg by mouth once daily. fenofibrate (LOFIBRA) 134 mg capsule Take 134 mg by mouth daily with breakfast. insulin 70/30 NPH/regular units/mL (HUMULIN 70/30 U-100 INSULIN) Inject 28 Units subcutaneously Daily Before Breakfast. insulin NPH hum/reg insulin hm (HUMULIN 70/30 U-100 KWIKPEN SUBCUTANEOUS) Inject 22 Units subcutaneously daily before dinner. busPIRone (BUSPAR) 5 mg tablet Take 5 mg by mouth twice daily. Lancets lancets Test blood sugar(s) 2 daily. Dx: E11.65 Insulin: Yes insulin needles, DISPOSABLE, (PEN NEEDLE) 31 gauge x 5/16 ndle Use one needle per dose. 1 per day. Blood-Glucose Meter monitoring kit Glucose Meter of Choice - Kit - Dx: Type 2 DM - Uncontrolled E11.65 blood sugar diagnostic (BLOOD GLUCOSE TEST) test strip Test blood sugar(s) 2 daily. Dx: E11.65. Insulin: Yes albuterol HFA (PROAIR HFA) 90 mcg/actuation inhaler Inhale 2 Puffs as instructed every 4 hours as needed for Wheezing/Shortness of Breath. losartan (COZAAR) 50 mg tablet Take 50 mg by mouth once daily. aspirin 325 mg tablet Take 325 mg by mouth once daily. DOCOSAHEXANOIC ACID/EPA (FISH OIL ORAL) Take by mouth. benzonatate (TESSALON PERLE) 100 mg capsule Take 2 capsules by mouth three times daily as needed. nicotine (NICODERM CQ) 21 mg/24 hr Apply 1 Patch as directed every 24 hours. nitroglycerin sublingual (NITROSTAT) 0.4 mg SL tablet Dissolve 0.4 mg under the tongue every 5 minutes as needed. albuterol HFA (VENTOLIN HFA) 90 mcg/actuation inhaler Inhale 2 Puffs as instructed every 4 hours as needed for Wheezing/Shortness of Breath. predniSONE (DELTASONE) 20 mg tablet Take 2 tablets by mouth once daily. mupirocin (BACTROBAN) 2 % ointment Apply 1 application to affected area three times daily. Location: back triamcinolone acetonide (KENALOG) 0.1 % cream Apply 1 application to affected area three times daily. Apply sparingly to area for rash/itching. FAMILY HISTORY Problem Relation Age of Onset Diabetes Mother Heart Father Hypertension Father Diabetes Father Cancer Father stomach None Sister None Brother Diabetes Paternal Uncle Social History Tobacco Use Smoking status: Current Every Day Smoker Packs/day: 2.00 Years: 31.00 Pack years: 62.00 Types: Cigarettes Smokeless tobacco: Never Used Tobacco comment: started at age 14 Substance Use Topics Alcohol use: No Drug use: No BP 122/74 Pulse 100 Temp 36.7 C (98 F) Resp 18 Wt 88 kg (194 lb) SpO2 96% BMI 27.06 kg/m hr 87 Review of Systems Constitutional: Negative for chills, fever and malaise/fatigue. HENT: Positive for congestion and sore throat. Negative for ear discharge, ear pain and sinus pain. Eyes: Negative for blurred vision, pain, discharge and redness. Respiratory: Positive for cough. Negative for hemoptysis, sputum production, shortness of breath, wheezing and stridor. Cardiovascular: Negative for chest pain. Gastrointestinal: Negative for abdominal pain, diarrhea, nausea and vomiting. Musculoskeletal: Negative for myalgias. Skin: Negative for itching and rash. Neurological: Positive for headaches. Negative for dizziness. Objective Physical Exam Constitutional: General: He is not in acute distress. Appearance: He is not diaphoretic. HENT: Head: Normocephalic. Nose: Congestion present. Mouth/Throat: Mouth: Mucous membranes are moist. Pharynx: Oropharynx is clear. No oropharyngeal exudate or posterior oropharyngeal erythema. Eyes: Conjunctiva/sclera: Conjunctivae normal. Pupils: Pupils are equal, round, and reactive to light. Cardiovascular: Rate and Rhythm: Normal rate and regular rhythm. Heart sounds: Normal heart sounds. Pulmonary: Effort: Pulmonary effort is normal. No tachypnea, accessory muscle usage or respiratory distress. Breath sounds: Normal breath sounds. No stridor. Abdominal: Palpations: Abdomen is soft. Tenderness: There is no abdominal tenderness. Musculoskeletal: Cervical back: Normal range of motion and neck supple. No rigidity or tenderness. Lymphadenopathy: Cervical: No cervical adenopathy. Skin: General: Skin is warm and dry. Neurological: Mental Status: He is alert and oriented to person, place, and time. ASSESSMENT/PLAN: 1. URI with cough and congestion - ICD9: 465.9, ICD10: J06.9 Vital signs within normal limits. No pain currently. Assessment unremarkable. COVID-19 influenza test offered declined testing. Patient was educated on supportive therapies. Patient will follow up with primary care provider as needed. Patient was instructed to immediately proceed to emergency room for any new, worsening, or symptoms lasting longer than anticipated. The patient's clinical presentation is otherwise unremarkable at this time. Based on exam and clinical finding, the patient is stable for discharge. Plan of care was discussed with patient. Patient verbalizes understanding and agrees to plan of care. This note was generated using [employer] software. It may contain errors in wording, punctuation, or spelling. Gab Culver APRN.TURNER documented in this encounter [facility] 04-01-2021 Note HNO ID: [id number] Author: Maday Puri APRN.CNP Service: ? Author Type: Nurse Practitioner Type: Progress Notes Filed: 04/01/2021 8:29 AM Note Text: CC: Patient presents with: Ear Pain: MIKE ear pain x this AM HPI: Kana Corbett is a 61 year old male who presents to the office with complaint of head congestion for the past day. Symptoms are staying the same. Associated symptoms includes ear pressure . Denies headache, fever, cough, nausea, vomiting and diarrhea. Treatments tried include nothing so far. with no relief of symptoms. Sick contacts: unknown. History of asthma, frequent episodes of bronchitis, chronic bronchitis, bronchiectasis or COPD: No Smoker: No Seasonal/environmental allergies: No The ROS is otherwise negative. The patient's pmh, medications, allergies, and past visits are reviewed. PHYSICAL EXAM: BP 120/84 Pulse 64 Temp 36 ?C (96.8 ?F) Resp 18 Wt 89.6 kg (197 lb 9.6 oz) SpO2 98% BMI 27.56 kg/m? General appearance: alert, cooperative, pleasant, in no acute distress Head: Normocephalic Eyes: EOM's intact, conjunctiva pink and moist, no icterus, sclera white, non-injected Ears: Right ear: External ear/canal- Normal, TM - clear with good landmarks. Left ear: External ear/canal- Normal, TM - clear with good landmarks Heart: Negative. RRR without obvious murmur, gallop, or rubs. No ectopy. 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 benzonatate (TESSALON PERLE) 100 mg capsule Take 2 capsules by mouth three times daily as needed. atenolol (TENORMIN) 50 mg tablet Take 50 mg by mouth once daily. atorvastatin (LIPITOR) 40 mg tablet Take 40 mg by mouth once daily. clopidogrel (PLAVIX) 75 mg tablet Take 75 mg by mouth once daily. isosorbide mononitrate ER (IMDUR) 30 mg 24 hr tablet Take 30 mg by mouth once daily. nicotine (NICODERM CQ) 21 mg/24 hr Apply 1 Patch as directed every 24 hours. nitroglycerin sublingual (NITROSTAT) 0.4 mg SL tablet Dissolve 0.4 mg under the tongue every 5 minutes as needed. fenofibrate (LOFIBRA) 134 mg capsule Take 134 mg by mouth daily with breakfast. insulin 70/30 NPH/regular units/mL (HUMULIN 70/30 U-100 INSULIN) Inject 28 Units subcutaneously Daily Before Breakfast. insulin NPH hum/reg insulin hm (HUMULIN 70/30 U-100 KWIKPEN SUBCUTANEOUS) Inject 22 Units subcutaneously daily before dinner. busPIRone (BUSPAR) 5 mg tablet Take 5 mg by mouth twice daily. albuterol HFA (VENTOLIN HFA) 90 mcg/actuation inhaler Inhale 2 Puffs as instructed every 4 hours as needed for Wheezing/Shortness of Breath. predniSONE (DELTASONE) 20 mg tablet Take 2 tablets by mouth once daily. mupirocin (BACTROBAN) 2 % ointment Apply 1 application to affected area three times daily. Location: back triamcinolone acetonide (KENALOG) 0.1 % cream Apply 1 application to affected area three times daily. Apply sparingly to area for rash/itching. Lancets lancets Test blood sugar(s) 2 daily. Dx: E11.65 Insulin: Yes insulin needles, DISPOSABLE, (PEN NEEDLE) 31 gauge x 5/16 ndle Use one needle per dose. 1 per day. Blood-Glucose Meter monitoring kit Glucose Meter of Choice - Kit - Dx: Type 2 DM - Uncontrolled E11.65 blood sugar diagnostic (BLOOD GLUCOSE TEST) test strip Test blood sugar(s) 2 daily. Dx: E11.65. Insulin: Yes albuterol HFA (PROAIR HFA) 90 mcg/actuation inhaler Inhale 2 Puffs as instructed every 4 hours as needed for Wheezing/Shortness of Breath. losartan (COZAAR) 50 mg tablet Take 50 mg by mouth once daily. aspirin 325 mg tablet Take 325 mg by mouth once daily. DOCOSAHEXANOIC ACID/EPA (FISH OIL ORAL) Take by mouth. FAMILY HISTORY Problem Relation Age of Onset - Diabetes Mother - Heart Father - Hypertension Father - Diabetes Father - Cancer Father stomach - None Sister - None Brother - Diabetes Paternal Uncle Social History Tobacco Use - Smoking status: Current Every Day Smoker Packs/day: 2.00 Years: 31.00 Pack years: 62.00 Types: Cigarettes - Smokeless tobacco: Never Used - Tobacco comment: started at age 14 Substance Use Topics - Alcohol use: No - Drug use: No ASSESSMENT/PLAN: 1. Pressure sensation in both ears - ICD9: 388.8, ICD10: H93.8X3= Prescription instructions reviewed with patient as applicable. Zyrtec given in order to try and dry Up congestion to see if it reli (more content not included)... [facility] Diagnosis Left groin pain- Primary Abdominal pain, left lower quadrant [facility] Diagnosis Left groin pain- Primary Abdominal pain, left lower quadrant [facility] Diagnosis Recurrent left inguinal hernia- Primary Inguinal hernia without mention of obstruction or gangrene, recurrent unilateral or unspecified [facility] Diagnosis Left groin pain Abdominal pain, left lower quadrant documented in this encounter [facility] Advance Directives Documents on File Type Date Recorded 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 Advance Directive(s) 01/20/2017 7:47 AM Advance Directive(s) 09/05/2015 4:07 PM Reason for Referral Specialty Diagnoses / Procedures Referred By David rausch Referred To Contact CT IMAGING Diagnoses Left groin pain Procedures CT PELVIS WO IVCON CT PELVIS W/O CONTRAST MATERIAL Yamilka Baltazar MD [address] [place] [address] [address] Imaging Referral ID Status Reason Start Date Expiration Date Visits Requested Visits Authorized [id number] Additional Clinical Info Needed Auto-Generat ed Referral 01/06/2022 02/05/2023 1 1 Specialty Diagnoses / Procedures Referred By Contac t Referred To Contact CT IMAGING Diagnoses Left groin pain Procedures CT PELVIS WO IVCON CT PELVIS W/O CONTRAST MATERIAL Yamilka Baltazar MD [address] [place] [address] [place] [place] [address] Referral ID Status Reason Start Date Expiration Date V isits Requested Visits Authorized [id number] Closed Auto-Generate d Referral 01/06/2022 03/16/2022 2 2 Summary Purpose Family History No Family History Records Found Additional Source Comments Source Comments (unrecognize d section and content) In the event this informatio n is protected by the Federal Confidentiality of Alcohol and Drug Abuse Patient Records regulations: The Federal rules restrict any use of the information to criminally investigate or prosecute any alcohol or drug abuse patient.[facility] the event this information is protected by the Federal Confidentiality of Alcohol and Drug Abuse Patient Records regulations: The Federal rules restrict any use of the information to criminally investigate or prosecute any alcohol or drug abuse patient.[facility] the event this information is protected by the Federal Confidentiality of Alcohol and Drug Abuse Patient Records regulations: The Federal rules restrict any use of the information to criminally investigate or prosecute any alcohol or drug abuse patient.[facility] [place] the event this information is protected by the Federal Confidentiality of Alcohol and Drug Abuse Patient Records regulations: The Federal rules restrict any use of the information to criminally investigate or prosecute any alcohol or drug abuse patient.[facility] [place] the event this information is protected by the Federal Confidentiality of Alcohol and Drug Abuse Patient Records regulations: The Federal rules restrict any use of the information to criminally investigate or prosecute any alcohol or drug abuse patient.[facility] [place] the event this information is protected by the Federal Confidentiality of Alcohol and Drug Abuse Patient Records regulations: The Federal rules restrict any use of the information to criminally investigate or prosecute any alcohol or drug abuse patient.[facility] Reason for Visit (unrecogniz ed section and content) Reason Comments Consult Possible left inguin al hernia Reason Comments Follow Up Hernia Reason Comments Follow Up Review CT scan for l eft groin pain Reason Comments Radiology CT Specialty Diagnoses / Procedures Referred By David rausch Referred To Contact CT IMAGING Diagnoses Left groin pain Procedures CT PELVIS WO IVCON CT PELVIS W/O CONTRAST MATERIAL Yamilka Baltazar MD [address] [place] [address] [place] [address] Referral ID Status Reason Start Date Expiration Date V isits Requested Visits Authorized [id number] Closed Auto-Generate d Referral 01/06/2022 03/16/2022 2 2 Care Teams (unrecognized sec tion and content) Policy Writer Typist Relationship Specialty Start Date End Date Xiang Nuñez DO [address] [place] [address] PCP - General Family Medicine 01/03/22 Policy Writer Typist Relationship Specialty Start Date End Date Xiang Nuñez DO [address] [place] [address] PCP - General Family Medicine 01/03/22 Policy Writer Typist Relationship Specialty Start Date End Date Xiang Nuñez DO [address] [place] [address] PCP - General Family Medicine 01/03/22 Policy Writer Typist Relationship Specialty Start Date End Date Xiang Nuñez DO [address] [place] [address] PCP - General Family Medicine 01/03/22 (unrecognized sect ion and content) No Status Records Found INFORMATION SOURCE (unrecogn ized section and content) FOR RECORDS PERTAINING TO PATIENTS WHO ARE OR HAVE BEEN ENROLLED IN A CHEMICAL DEPENDENCY/SUBSTANCEABUSE PROGRAM, SOME INFORMATION MAY BE OMITTED. This clinical summary was aggregated from multiple sources. Caution should be exercised in using it in the provision of clinical care. This summary normalizes information from multiple sources, and as a consequence, information in this document may materially change the coding, format and clinical context of patient data. In addition, data may be omitted in some cases. CLINICAL DECISIONS SHOULD BE BASED ON THE PRIMARY CLINICAL RECORDS. [facility]. provides no warranty or guarantee of the accuracy or completeness of information in this document.
[2023-04-15 13:07] LABS: ALB/GLOB Ratio 0.9 RATIO (0.9-2.4); AST(SGOT) 29 U/L (15-37); Alanine Aminotransfer ALT/SGPT 40 U/L (16-61); Albumin, Serum 3.6 g/dL (3.2-5.0); Alkaline Phosphatase 81 U/L (45-117); Anion Gap 5 (5-15); BUN 12 mg/dL (7-18); BUN/Creat Ratio 11.9 RATIO (10-20); Calcium,Total 8.9 mg/dL (8.5-10.1); Chloride 100 mmol/L (98-107); Cholesterol 255 mg/dL (200); Creatinine, Serum 1.01 mg/dL (0.70-1.30); EST Glomerular Filtration Rate 79 mL/min (>60); Est Glom Filt Rate - Afr Amer 96 mL/min (>60); Globulin 4.1 g/dL (2.2-4.2); Glucose 255 mg/dL (74-106); High Density Lipoprotein 37 mg/dL; Potassium 4.7 mmol/L (3.5-5.1); Protein, Total 7.7 g/dL (6.4-8.2); Sodium Level 133 mmol/L (136-145); Triglycerides 411 mg/dL
== END | disposition home or self-care (01) ==
LOC: BIMLAB 09:43
PROVIDERS: PCP Family Medicine; Referring Provider Family Medicine; Visit Provider Family Medicine
DX: I21.4 Non-ST elevation (NSTEMI) myocardial infarction (principal)
CPT/HCPCS: 36415; 80053; 80061

== ENCOUNTER 2023-04-25 15:23 | Emergency (ER) | payer MEDICAID, SELFPAY ==
[2023-04-25 15:25] VITALS: BP 161/70; PULSE 75; RESP 16; TEMP 36.4; O2SAT 96; BMI 26.7
--- NOTE | 2023-04-25 15:37 | RAD_ITS ---
INDICATION: trauma EXAMINATION/TECHNIQUE: X-RAY - RIGHT XR Elbow Min 3 Views COMPARISON: FINDINGS: SOFT TISSUES: No soft tissue swelling or gas. No radiopaque foreign body. BONES/JOINTS: There is no displacement of the anterior or posterior fat pads. No acute fracture or subluxation. Normal alignment. Preservation of the joint space. No sclerotic or destructive changes observed. RAD/Elbow min 3 Views IMPRESSION: No acute bony injury. Electronically Signed: Jerry Delacruz DO at 16:36 EST ,
--- NOTE | 2023-04-25 15:37 | RAD_ITS ---
INDICATION: trauma EXAMINATION/TECHNIQUE: X-RAY - RIGHT XR Knee Complete 4 Views COMPARISON: FINDINGS: SOFT TISSUES: No soft tissue swelling or gas. No radiopaque foreign body. Vascular calcifications. BONES/JOINTS: No acute fracture or subluxation.. Fragmentation at the tibial tuberosity probably related to previous Beckie mensah disease. Normal alignment. Preservation of the joint space.. No sclerotic or destructive changes observed. RAD/Knee 4 or More Views IMPRESSION: No acute bony injury. Electronically Signed: Jerry Delacruz DO at 17:04 EST ,
--- NOTE | 2023-04-25 15:37 | CT_ITS ---
STUDY: CT BRAIN WITHOUT CONTRAST REASON FOR EXAM: Male, 63 years old. trauma RADIATION DOSAGE (If Supplied By Facility): CTDIvol = ( 44.99 ) mGy, DLP = ( 863.60 ) mGycm TECHNIQUE: Transaxial CT imaging of the brain was performed without administration of intravenous contrast material. Individualized dose optimization techniques were used for this CT. COMPARISON: No relevant priors. FINDINGS: Normal soft tissue structures. Normal calvarium. Normal size ventricles and extra-axial spaces for the patient''s age. Old small focal infarct in the right periventricular white matter. Normal basal ganglia and thalami. Normal brainstem. Normal cerebellum. There is no intracranial hemorrhage. There are no findings of an acute ischemic infarction. Normal visualized paranasal sinuses. CT/Brain/Head without Contrast IMPRESSION: No acute intracranial pathology of the brain. Electronically Signed: Jerry Delacruz DO at 16:12 EST ,
--- NOTE | 2023-04-25 15:37 | CT_ITS ---
STUDY: CT CERVICAL SPINE WITHOUT CONTRAST REASON FOR EXAM: Male, 63 years old. trauma RADIATION DOSAGE (If Supplied By Facility): CTDIvol = ( 25.88 ) mGy, DLP = ( 551.03 ) mGycm TECHNIQUE: High resolution transaxial imaging was performed without contrast material. Sagittal and coronal images were reconstructed. Individualized dose optimization techniques were used for this CT. COMPARISON: None FINDINGS: Normal craniovertebral junction. Normal anterior atlantoaxial articulation. Normal odontoid process. Normal cervical lordosis. Normal vertebral bodies and posterior osseous elements. C2-3: Mild spurring at the endplates. Normal disc height and morphology. Normal central canal and intervertebral neuroforamina. C3-4: Normal endplates. Normal disc height and morphology. Normal central canal and intervertebral neuroforamina. C4-5: Spurring of the endplates. Narrowed disc height. Normal central canal. Uncovertebral spurring narrowing the intervertebral neuroforamina, right more than left. C5-6: Spurring of the endplates. Narrowed disc height. Normal central canal. Uncovertebral spurring narrowing the intervertebral neuroforamina. C6-7: Mild spurring at the endplates. Normal disc height and morphology.. Posterior spurring protruding into the central canal. Uncovertebral spurring narrowing the intervertebral neuroforamina. C7-T1: Normal endplates. Normal disc height and morphology. Normal central canal and intervertebral neuroforamina. Normal visualized soft tissue structures. CT/Spine Cervical without Contras IMPRESSION: Degenerative changes of the cervical spine. Electronically Signed: Jerry Delacruz DO at 16:22 [facility] Reading Location ID and State: [facility] / [place] Tel [phone], Service support ,
--- NOTE | 2023-04-25 15:39 | EX.ED.GENINJ ---
HPI History of Present Illness Chief Complaint: Fall Informant: patient Narrative Narrative: Patient presents after fall. Patient states that he was working on a car engine in his garage. He was up on a lift and they were backing a trailer in underneath it. One of the chains holding the engine broke and it swung sideways hitting him on the left side. He states it threw him 10 to 15 feet where he landed on his right side. He is complaining of pain to his right elbow, right knee, and right foot. He did ambulate into the emergency room. He does not believe he struck his head but is not sure. He is on aspirin but no other form of anticoagulation. [facility] Medical History Arthritis Asthma Atherosclerosis of coronary artery of [place] heart without angina pectoris Emphysema lung Encounter for screening for malignant neoplasm of lung in current smoker with 30 pack year history or greater Essential (primary) hypertension GERD (gastroesophageal reflux disease) History of non-ST elevation myocardial infarction (NSTEMI) (06/11/18) Hyperlipidemia Insulin dependent diabetes mellitus Nicotine dependence Pancreatitis Stenosis of right carotid artery Type 2 diabetes mellitus Home Medications blood sugar diagnostic (FreeStyle Test strips) #50 ea 04/02/21 [Rx Last Taken Unknown] blood-glucose meter (FreeStyle System Kit) #1 ea 04/02/21 [Rx Last Taken Unknown] lancets 28 gauge (FreeStyle Lancets) #50 ea 04/02/21 [Rx Last Taken Unknown] pen needle, diabetic 31 gauge x 3/16 (1st Tier Unifine Pentips Plus) #100 ea 04/02/21 [Rx Last Taken Unknown] aspirin 81 mg chewable tablet 81 mg PO DAILY@0800 health maintenance #90 tabs 11/01/21 [Rx Last Taken Unknown] fenofibrate micronized 134 mg capsule 134 mg PO DAILY lowers cholesterol #90 caps 11/01/21 [Rx Last Taken Unknown] nitroglycerin 0.4 mg sublingual tablet 0.4 mg sublingual Q5M PRN Cardiac/Chest Pain #20 tabs 04/24/22 [Rx Last Taken Unknown] omeprazole 20 mg capsule,delayed release See Rx Instructions .Route .COMPLEX #60 caps 11/04/22 [Rx Last Taken Unknown] buspirone 5 mg tablet 5 mg PO BID anxiety #180 tabs 09/19/23 [Rx Last Taken Unknown] isosorbide mononitrate 30 mg tablet,extended release 24 hr See Rx Instructions .Route .COMPLEX #90 tabs 12/23/22 [Rx Last Taken Unknown] insulin lispro protamine-lispro 100 unit/mL (50-50) subcutaneous pen (Humalog Mix 50-50 KwikPen) 70 unit (0.7 mL) subcut BID #15 mL 01/13/23 [Rx Last Taken Unknown] alfuzosin 10 mg tablet,extended release 24 hr 10 mg PO DAILY 01/26/23 [History Last Taken Unknown] albuterol sulfate 90 mcg/actuation aerosol inhaler 2 puff inhalation Q4H PRN PRN Wheezing ##1 02/18/23 [Rx Last Taken Unknown] atenolol 50 mg tablet 50 mg PO DAILY #90 tabs 02/18/23 [Rx Last Taken Unknown] losartan 25 mg tablet 25 mg PO DAILY #90 tabs 02/18/23 [Rx Last Taken Unknown] mometasone-formoterol HFA 100 mcg-5 mcg/actuation aerosol inhaler (Dulera) 2 puff inhalation BID #13 grams 02/18/23 [Rx Last Taken Unknown] atorvastatin 80 mg tablet 80 mg PO QHS #90 tabs 04/15/23 [Rx Last Taken Unknown] dapagliflozin propanediol 10 mg tablet (Farxiga) 10 mg PO DAILY #30 tabs 04/15/23 [Rx Last Taken Unknown] icosapent ethyl 1 gram capsule (Vascepa) 2 g (2 x 1 gram) PO BID 30 days #120 caps 04/15/23 [Rx Last Taken Unknown] metformin 1,000 mg tablet 1,000 mg PO BID #180 tabs 04/15/23 [Rx Last Taken Unknown] hydrocodone-acetaminophen 5-325mg 5mg-325mg 1 tab PO Q6H PRN PRN Pain 3 days #10 TABLETS 04/25/23 [Rx Last Taken Unknown] Allergy/AdvReac Type Severity Reaction Status Date / Time amoxicillin Allergy Angioedema Verified 04/25/23 15:24 lindane Allergy Rash Verified 04/25/23 15:24 Family History Father Asthma Alcoholism Arthritis Heart disease Hypertension High cholesterol CVA (cerebral vascular accident) Lung cancer Grandfather Myocardial infarction Surgical History H/O coronary artery bypass surgery (2006) History of carotid endarterectomy (01/06/14) History of hernia repair History of left heart catheterization (06/11/18) Social History Smoking Status: Current every day smoker tobacco type: cigarettes Tobacco: How many years used: 45 Electronic Cigarette Use: not used second hand exposure: Yes quit status: considering quitting counseling given: provider counseling alcohol intake: never substance use type: does not use caffeine: Yes Type: coffee Number of servings: 5 what type of physical activity do you participate in: none ROS ROS ED Constitutional Constitutional ED: Denies chills or fever(s) Eyes Eyes: Denies discharge from eye(s) ENT ENT ED: Denies discharge from eye(s), rhinorrhea or sore throat Cardiovascular Cardiovascular: Denies chest pain Respiratory/Chest Respiratory/Chest: Denies cough or dyspnea Gastrointestinal Gastrointestinal: Denies abdominal pain or nausea Musculoskeletal Musculoskeletal: Reports extremity pain; Denies back pain or neck pain Integumentary Reports Abrasions; Denies rash Neurologic Neurologic: Denies headache(s) or weakness Allergic/Immunologic Allergic/Immunologic ED: Denies lip swelling or urticaria EXAM Physical Exam Const Vital Signs: 04/25/23 15:25 04/25/23 15:43 04/25/23 17:36 Temperature 97.6 F L 95 F L Temperature Source Oral Pulse Rate 75 67 Respiratory Rate 16 18 Respiratory Effort Normal Non-Labored Respiratory Depth Normal Respiratory Pattern Normal Blood Pressure 161/70 H 139/73 H Blood Pressure Mean 100 95 Pulse Ox 96 Oxygen Delivery Method Room Air Room Air Positive well nourished and well developed General Appearance ED: well developed HEENT atraumatic Eyes EOMs intact bilaterally Neck full ROM Neck Narrative: No midline C-spine tenderness. Chest Wall inspection of chest normal and palpation of chest normal Resp normal respiratory effort and clear to auscultation bilaterally Cardio regular rhythm Rate: regular rate GI non-tender Palpation: soft Back/Spine normal to inspection and no thoracic nor lumbar tenderness Extremity Extremity Narrative: 2 cm round abrasion over the anterior right knee. Good range of motion. No significant edema. Mild tenderness ovation with slight edema and erythema to the right first MTP joint. Good cap refill distally. Neuro oriented x3, moves all extremities, no focal motor deficits and no sensory deficits noted Psych mental status grossly normal Skin Skin Narrative: Right knee abrasion as noted above. MDM MDM MDM Narrative Medical decision making narrative: Patient sent for CT imaging of the brain and C-spine to evaluate for fracture, bleed, edema, malalignment. X-rays of the right elbow, right knee, and right foot obtained to evaluate for potential fracture. Radiography Diagnostic Testing: Clinical Impression(s) from Imaging Studies Brain CT 04/25/23 15:37 IMPRESSION: No acute intracranial pathology of the brain. Electronically Signed: Jerry Delacruz DO at 16:12 EST , Cervical Spine CT 04/25/23 15:37 IMPRESSION: Degenerative changes of the cervical spine. Electronically Signed: Jerry Delacruz DO at 16:22 EST , Elbow X-Ray 04/25/23 15:37 IMPRESSION: No acute bony injury. Electronically Signed: Jerry Delacruz DO at 16:36 EST , Knee X-Ray 04/25/23 15:37 IMPRESSION: No acute bony injury. Electronically Signed: Jerry Delacruz DO at 17:04 EST , Foot X-Ray 04/25/23 15:55 IMPRESSION: No acute bony injury. Electronically Signed: Jerry Delacruz DO at 16:42 EST , Treatment and Re-Evaluation Narrative: CT scan of the brain reveals no acute intracranial pathology. CT the C-spine shows degenerative changes at the C-spine. Elbow x-ray per my interpretation reveals no obvious bony fracture. Radiology interpretation reviewed and agrees. Right knee x-ray per my interpretation does reveal abnormality over the tibial tuberosity. Radiology interpretation is reviewed and they do feel this is old from prior [place]. No evidence of acute fracture. Right foot x-rays per my interpretation reveal no evidence of fracture. Radiology interpretation reviewed and agrees. Test results are discussed with patient and family at bedside. He does report problems with his knee prior. Abrasion over the anterior knee will be cleansed and tetanus will be updated. Dressing will be applied. Patient be given prescription for [place] and return instructions given. Addendum: After the patient was discharged a call back in noting that the pharmacy the prescription has been sent to is already closed. They asked that the prescription be sent to [facility] instead. Cancellation notice was sent to [facility] and new prescription was sent to [facility]. Discharge Plan Triage Chief Complaint: Fall ED Provider: Chaya Knight Dx/Rx/DC Orders Clinical Impression: Abrasion, Fall, Contusion of elbow, right, Contusion of knee, right Instructions: ED Abrasion, ED Contusion, Elbow, ED Contusion, Lower Extremity Prescriptions: New hydrocodone-acetaminophen 5-325 mg tablet 1 tab PO Q6H PRN PRN (Reason: Pain) 3 Days Qty: 10 0RF No Action nitroglycerin 0.4 mg tablet, sublingual 0.4 mg Sublingual Q5M PRN (Reason: Cardiac/Chest Pain) Qty: 20 1RF Humalog Mix 50-50 KwikPen 100 unit/mL (50-50) insulin pen 70 unit SC BID Qty: 15 3RF Rx Instructions: 9 pm: eat a meal, take 40 units insulin 1 am: eat a meal during work break 8 am: eat a meal take 50 units insulin alfuzosin 10 mg tablet extended release 24 hr 10 mg PO DAILY Hold Instructions: Resume on 07/26/21. Rx Instructions: administer after the same meal each day atorvastatin 80 mg tablet 80 mg PO QHS Qty: 90 3RF metformin 1,000 mg tablet 1,000 mg PO BID Qty: 180 1RF Farxiga 10 mg tablet 10 mg PO DAILY Qty: 30 5RF icosapent ethyl [Vascepa] 1 gram capsule 2 g PO BID 30 Days Qty: 120 12RF (DME) FreeStyle Test Strip See Rx Instructions .ROUTE .MEDSUPPLY Qty: 50 11RF Rx Instructions: check blood glucose daily (DME) blood-glucose meter [FreeStyle System Kit] Kit See Rx Instructions .ROUTE .MEDSUPPLY Qty: 1 0RF Rx Instructions: check blood glucose daily for type 2 DM (DME) lancets [FreeStyle Lancets] 28 gauge misc See Rx Instructions .ROUTE .MEDSUPPLY Qty: 50 11RF Rx Instructions: Check blood glucose daily for type 2 DM (DME) pen needle, diabetic [1st Tier Unifine Pentips Plus] 31 gauge x 3/16 needle See Rx Instructions .ROUTE .MEDSUPPLY Qty: 100 1RF Rx Instructions: use with lantus nightly aspirin 81 mg tablet,chewable 81 mg PO DAILY@0800 Qty: 90 3RF fenofibrate micronized 134 mg capsule 134 mg PO DAILY Qty: 90 3RF omeprazole 20 mg capsule,delayed release(DR/EC) See Rx Instructions .ROUTE .COMPLEX Qty: 60 1RF Dose Instruction: TAKE 1 CAPSULE BY MOUTH DAILY Rx Instructions: TAKE 1 CAPSULE BY MOUTH DAILY buspirone 5 mg tablet 5 mg PO BID Qty: 180 1RF isosorbide mononitrate 30 mg tablet extended release 24 hr See Rx Instructions .ROUTE .COMPLEX Qty: 90 3RF Dose Instruction: TAKE 1 TABLET BY MOUTH EVERY DAY Rx Instructions: TAKE 1 TABLET BY MOUTH EVERY DAY albuterol sulfate 90 mcg/actuation HFA aerosol inhaler 2 puff inhalation Q4H PRN PRN (Reason: Wheezing) Qty: 1 3RF atenolol 50 mg tablet 50 mg PO DAILY Qty: 90 3RF losartan 25 mg tablet 25 mg PO DAILY Qty: 90 3RF Dulera 100-5 mcg/actuation HFA aerosol inhaler 2 puff inhalation BID Qty: 13 0RF Primary Care Provider: Ant Nuñez Referrals: Ant Nuñez, DO [Primary Care Provider] - 1 Week Disposition Disposition: Home, Self Care Discharge Date/Time: 04/25/23 17:41
--- OUTSIDE RECORDS SUMMARY | 2023-04-25 15:47 | XMS RPT_ITS | CCD ---
Author Name Unknown Address [address] [place] [address] Organization [facility] Care Team Providers Care Housing Counselor Name Role Phone Unavailable Primary Care Provider [...] Drug Class(es) Dates Sig (Normalized) Sig (Original) [id number] 200 actuat albuterol 0.09 mg/actuat metered dose [...] 12:52-0400 Body temperature 98.01 [degF] Gab Culver SPECIAL DELIVERY CLERK.REVENUE AGENT Work Phone: [facility] 07-18-2021 12:52-0400 Body weight 88 kg Gab Culver SPECIAL DELIVERY CLERK.REVENUE AGENT Work Phone: [facility] 07-18-2021 12:52-0400 Diastolic blood pressure 74 mm[Hg] Gab Culver SPECIAL DELIVERY CLERK.REVENUE AGENT Work Phone: [facility] 07-18-2021 12:52-0400 Heart rate 100 /min Gab Culver SPECIAL DELIVERY CLERK.REVENUE AGENT Work Phone: [facility] 07-18-2021 12:52-0400 Respiratory rate 18 /min Gab Culver SPECIAL DELIVERY CLERK.REVENUE AGENT Work Phone: [facility] 07-18-2021 12:52-0400 SaO2% (BldA) [Mass fraction] 96 % Gab Culver SPECIAL DELIVERY CLERK.REVENUE AGENT Work Phone: [facility] 07-18-2021 12:52-0400 Systolic blood pressure 122 mm[Hg] Gab Culver SPECIAL DELIVERY CLERK.REVENUE AGENT Work Phone: [facility] Encounters Encounter Date Encounter Type Care Provider Facility Start: 02-04-2022 End: 02-04-2022 ambulatory YAMILKA BALTAZAR Facility:[facility] Start: 02-04-2022 End: 02-04-2022 Patient encounter procedure Yamilka Baltazar MD Work Phone: General Surgery Procedures Date Procedure Procedure Detail Performing Clinician Start: 01-28-2022 Ct pelvis w/o contra st material Yamilka Baltazar MD Work Phone: Start: 12-23-2016 Adult depression screening assessment Gab Culver SPECIAL DELIVERY CLERK.REVENUE AGENT Work Phone: Plan of Treatment Date Care Activity Detail Author Start: 06-11-2024 Urine microalbumin profile DTaP,Tdap,Td Vaccine (2 - Td or Tdap) [facility] Start: 12-05-2022 Influenza vaccination Influenza Vaccine (#1) [facility] Start: 04-06-2022 Depression Assessment Depression Assessment [facility] [...] (2 - PCV) PNEUMOCOCCAL (2 - PCV) [facility] Start: 10-08-2016 Pneumococcal vaccination Pneumococcal Vaccine (2 [...] pain 1 Occurrences starting 01/06/2022 until 02/05/2023 [facility] Work Phone: Immunizations Immunization Date Immunization Notes Care Provider Fa radha 12-23-2016 influenza, injectabl e, quadrivalent, contains preservative Gab Culver SPECIAL DELIVERY CLERK.REVENUE AGENT Work Phone: [facility] 12-23-2016 influenza virus vacc ine, unspecified formulation Ct (I-Stat) Work Phone: [facility] 10-09-2015 pneumococcal polysaccharide vaccine, 23 valent Gab Culver SPECIAL DELIVERY CLERK.REVENUE AGENT Work Phone: [facility] Work Phone: Payers Date Payer Category Payer Medicaid [employer] [id number] 2020-Present [phone] [address] [place] [address] Medicaid [id number] 2020 Medicaid [id number] 2020 Medicaid [id number] Social History Date Type Detail Facility Start: 01-06-2022 Tobacco smoking stat us [facility] Smokes tobacco daily [facility] Work Phone: History of tobacco use Cigarette Smoker [facility] Start: 07-18-2021 End: 01-28-2022 Alcohol intake Current non-drinker of alcohol (finding) [facility] Start: 1960 [facility]igned [facility] Start: 07-08-2021 End: 02-04-2022 Exposure to SARS-CoV-2 (event) Not sure [facility] Start: 03-14-2020 End: 01-06-2022 Cigarettes smoked current (pack per day) - Reported 2 [facility] Start: 01-06-2022 Tobacco use and exposure Smokeless tobacco non-user [facility] Start: 01-06-2022 Tobacco Comment started at age 14 [facility] Start: 03-14-2020 End: 01-28-2022 Tobacco use panel [...] Type Note Facility 02-04-2022 Note HNO ID: [id number] Author: Yamilka Baltazar MD Service: ? Author [...] non-ST elevation myocardial infarction (NSTEMI) 06/11/2018 [address]. Herrera Espinosa Hypertension Other emphysema (HCC) [...] any blood vessels/nerv (more content not included)... [facility] 02-04-2022 History of Present illness Narrative Kana [...] non-ST elevation myocardial infarction (NSTEMI) 06/11/2018 Hyperlipidemia [address] [employer] Dr. Herrera Espinosa Hypertension Other emphysema (HCC) [...] [facility] 01-28-2022 Note HNO ID: [id number] Author: Yamilka Baltazar MD Service: ? Author [...] non-ST elevation myocardial infarction (NSTEMI) 06/11/2018 Hyperlipidemia Coordinator Integrated [employer] Dr. Herrera Espinosa Hypertension Other emphysema (HCC) [...] completing appropriate m (more content not included)... [facility] 01-28-2022 History of Present illness Narrative Kana [...] non-ST elevation myocardial infarction (NSTEMI) 06/11/2018 Hyperlipidemia [address]inator Integrated [employer] Dr. Herrera Espinosa Hypertension Other emphysema (HCC) [...] [facility] 01-28-2022 Note HNO ID: [id number] Author: ROBLES Leblanc) Service: ? Author Type: Appliance Assembler Type: Progress Notes Filed: 01/28/2022 3:01 PM [...] RT Betsy(Suman) January 28, 2022 3:01 PM [facility] 01-28-2022 History of Present illness Narrative Radiology [...] [facility] 01-06-2022 Note HNO ID: [id number] Author: Yamilka Baltazar MD Service: ? Author [...] non-ST elevation myocardial infarction (NSTEMI) 06/11/2018 Hyperlipidemia Coordinator Integrated [employer] Dr. Herrera Espinosa Hypertension Other emphysema (HCC) [...] OF SYSTEMS: General: (more content not included)... [facility] 01-06-2022 History of Present illness Narrative Kana [...] non-ST elevation myocardial infarction (NSTEMI) 06/11/2018 Hyperlipidemia [address] Integrated [employer] Dr. Herrera Espinosa Hypertension Other emphysema (HCC) [...] entered by the nurse and reviewed by pr Nursing Notes: Allison Haines RN 01/06/2022 9:32 [...] of any pertinent laboratory studies/radiological imaging/medical records, [id number] patient care, obtaining oral medical history from [...] [facility] 07-18-2021 Note HNO ID: [id number] Author: Gab Culver APRN.REVENUE AGENT Service: ? Author Type: Nurse Practitioner Type: [...] type 2 in obese (HCC) - Hyperlipidemia Coordinator Integrated [employer] Dr. Herrera Espinosa - Hypertension - Pancreatitis [...] is not diaphoretic (more content not included)... [facility] 07-18-2021 Instructions Gab Culver APRN.[facility] - 07/18/2021 1:15 PM EDT RESPIRATORY INFECTION [...] by coughs, sneezes, and direct contact, especially [id number]. A respiratory tract infection usually clears up [...] mellitus type 2 in obese (HCC) Hyperlipidemia Coordinator Integrated [employer] Dr. Herrera Espinosa Hypertension Pancreatitis Tobacco use [...] of care. This note was generated using [employer] software. It may contain errors in wording, punctuation, or spelling. Gab Culver APRN.TURNER documented in this encounter [facility] 04-01-2021 Note HNO ID: [id number] Author: Maday Puri APRN.CNP Service: ? Author [...] type 2 in obese (HCC) - Hyperlipidemia Coordinator Integrated [employer] Dr. Herrera Espinosa - Hypertension - Pancreatitis [...] if it reli (more content not included)... [facility] documented in this encounter [facility] Diagnosis Left groin pain- Primary Abdominal pain, left lower quadrant [facility] Diagnosis Left groin pain- Primary Abdominal pain, left lower quadrant [facility] Diagnosis Recurrent left inguinal hernia- Primary Inguinal hernia without mention of obstruction or gangrene, recurrent unilateral or unspecified documented in this encounter [facility]* Diagnosis Left groin pain Abdominal pain, left lower quadrant documented in this encounter [facility] Advance Directives Documents on File Type Date Recorded 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 Advance Directive(s) 01/20/2017 7:47 AM Advance Directive(s) 09/05/2015 4:07 PM Reason for Referral Specialty Diagnoses / Procedures Referred By David rausch Referred To Contact CT IMAGING Diagnoses Left groin pain Procedures CT PELVIS WO IVCON CT PELVIS W/O CONTRAST MATERIAL Yamilka Baltazar MD [address] [place] [address] Ct Imaging Referral ID Status Reason Start Date Expiration Date Visits Requested Visits Authorized [id number] Additional Clinical Info Needed Auto-Generat ed Referral 01/06/2022 02/05/2023 1 1 Specialty Diagnoses / Procedures Referred By Contac t Referred To Contact CT IMAGING Diagnoses Left groin pain Procedures CT PELVIS WO IVCON CT PELVIS W/O CONTRAST MATERIAL Yamilka Baltazar MD [address] [place] [address] [place] [address] Referral ID Status Reason Start Date Expiration Date V isits Requested Visits Authorized [id number] Closed Auto-Generate d Referral 01/06/2022 03/16/2022 2 [...] Yamilka Baltazar MD [address] [place] [address] [place] [address] Referral ID Status Reason Start Date Expiration Date V isits Requested Visits Authorized [id number] Closed Auto-Generate d Referral 01/06/2022 03/16/2022 2 2 Care Teams (unrecognized sec tion and content) Housing Counselor Relationship Specialty Start Date End Date Xiang Nuñez DO [address] [place] [address] PCP - General Family Medicine 01/03/22 Housing Counselor Relationship Specialty Start Date End Date Xiang Nuñez DO [address] [place] [address] PCP - General Family Medicine 01/03/22 Housing Counselor Relationship Specialty Start Date End Date Xiang Nuñez DO [address] [place] [address] PCP - General Family Medicine 01/03/22 Housing Counselor Relationship Specialty Start Date End Date Xiang Nuñez DO [address] [place] [address] PCP - General Family Medicine 01/03/22 (unrecognized [...] BE BASED ON THE PRIMARY CLINICAL RECORDS. [facility]. provides no warranty or guarantee of the accuracy or completeness of information in this document.
--- NOTE | 2023-04-25 15:55 | RAD_ITS ---
INDICATION: trauma EXAMINATION/TECHNIQUE: X-RAY - RIGHT XR Foot 3 VIEWS COMPARISON: FINDINGS: SOFT TISSUES: No soft tissue swelling or gas. No radiopaque foreign body. BONES/JOINTS: No acute fracture or subluxation.. Normal alignment. Calcaneal spurring. Preservation of the joint space.. No sclerotic or destructive changes observed. RAD/Foot min 3 Views IMPRESSION: No acute bony injury. Electronically Signed: Jerry Delacruz DO at 16:42 EST ,
[2023-04-25 17:36] VITALS: BP 139/73; PULSE 67; RESP 18; TEMP 35
[2023-04-25] MEDS: Diphth,Pertuss(Acell),Tet Vac 0.5 ML Vial IM (17:37)
== END 2023-04-25 17:41 | disposition home or self-care (01) ==
PROVIDERS: Emergency Provider Emergency Medicine; PCP Family Medicine; Visit Provider Emergency Medicine
DX: S80.01XA Contusion of right knee, initial encounter (principal); Z79.4 Long term (current) use of insulin; E11.9 Type 2 diabetes mellitus without complications; S50.01XA Contusion of right elbow, initial encounter; F17.210 Nicotine dependence, cigarettes, uncomplicated; W17.89XA Other fall from one level to another, initial encounter; Y93.89 Activity, other specified; Y92.59 Other trade areas as the place of occurrence of the external cause; I25.10 Atherosclerotic heart disease of native coronary artery without angina pectoris; I10 Essential (primary) hypertension; E78.5 Hyperlipidemia, unspecified; Z79.82 Long term (current) use of aspirin; Z79.899 Other long term (current) drug therapy; K21.9 Gastro-esophageal reflux disease without esophagitis; J45.909 Unspecified asthma, uncomplicated; Z79.51 Long term (current) use of inhaled steroids; Z23 Encounter for immunization; M79.671 Pain in right foot
CPT/HCPCS: 70450; 72125; 73080; 73564; 73630; 90471; 90715; 99282

== ENCOUNTER 2023-05-24 00:22 | Emergency (ER) | payer MEDICAID, SELFPAY ==
[2023-05-24 00:23] VITALS: BP 131/55; PULSE 77; RESP 18; TEMP 35.9; O2SAT 95; BMI 25.8
--- NOTE | 2023-05-24 00:36 | EX.ED.DYSGE1 ---
HPI History of Present Illness Chief Complaint: Wound Check Informant: patient Onset/Context/Timing Onset: Days (2) Context: Gradual Onset Timing: Continuous Quality: Squeezing Location: Left inguinal area Worsened by: Nothing Relieved by: Nothing Narrative Narrative: Patient presents with an abscess to his left inguinal area that has been getting worse over the past 2 days. Patient states it is over the scar tissue where he had a inguinal herniorrhaphy in the past. Patient describes the pain as a squeezing type pain. Patient states nothing makes it better nothing makes it worse. Patient denies any fevers or chills. Patient denies any discharge or drainage. Patient denies any nausea or vomiting. Patient denies any abdominal pain. [facility] Medical History Arthritis Asthma Atherosclerosis of coronary artery of [place] heart without angina pectoris Emphysema lung Encounter for screening for malignant neoplasm of lung in current smoker with 30 pack year history or greater Essential (primary) hypertension GERD (gastroesophageal reflux disease) History of non-ST elevation myocardial infarction (NSTEMI) (06/11/18) Hyperlipidemia Insulin dependent diabetes mellitus Nicotine dependence Pancreatitis Stenosis of right carotid artery Type 2 diabetes mellitus Home Medications blood sugar diagnostic (FreeStyle Test strips) #50 ea 04/02/21 [Rx Last Taken Unknown] blood-glucose meter (FreeStyle System Kit) #1 ea 04/02/21 [Rx Last Taken Unknown] lancets 28 gauge (FreeStyle Lancets) #50 ea 04/02/21 [Rx Last Taken Unknown] pen needle, diabetic 31 gauge x 3/16 (1st Tier Unifine Pentips Plus) #100 ea 04/02/21 [Rx Last Taken Unknown] aspirin 81 mg chewable tablet 81 mg PO DAILY@0800 health maintenance #90 tabs 11/01/21 [Rx Last Taken Unknown] fenofibrate micronized 134 mg capsule 134 mg PO DAILY lowers cholesterol #90 caps 11/01/21 [Rx Last Taken Unknown] nitroglycerin 0.4 mg sublingual tablet 0.4 mg sublingual Q5M PRN Cardiac/Chest Pain #20 tabs 04/24/22 [Rx Last Taken Unknown] omeprazole 20 mg capsule,delayed release See Rx Instructions .Route .COMPLEX #60 caps 11/04/22 [Rx Last Taken Unknown] buspirone 5 mg tablet 5 mg PO BID anxiety #180 tabs 12/23/22 [Rx Last Taken Unknown] isosorbide mononitrate 30 mg tablet,extended release 24 hr See Rx Instructions .Route .COMPLEX #90 tabs 12/23/22 [Rx Last Taken Unknown] insulin lispro protamine-lispro 100 unit/mL (50-50) subcutaneous pen (Humalog Mix 50-50 KwikPen) 70 unit (0.7 mL) subcut BID #15 mL 01/13/23 [Rx Last Taken Unknown] alfuzosin 10 mg tablet,extended release 24 hr 10 mg PO DAILY 01/26/23 [History Last Taken Unknown] albuterol sulfate 90 mcg/actuation aerosol inhaler 2 puff inhalation Q4H PRN PRN Wheezing ##1 02/18/23 [Rx Last Taken Unknown] atenolol 50 mg tablet 50 mg PO DAILY #90 tabs 02/18/23 [Rx Last Taken Unknown] losartan 25 mg tablet 25 mg PO DAILY #90 tabs 02/18/23 [Rx Last Taken Unknown] mometasone-formoterol HFA 100 mcg-5 mcg/actuation aerosol inhaler (Dulera) 2 puff inhalation BID #13 grams 02/18/23 [Rx Last Taken Unknown] atorvastatin 80 mg tablet 80 mg PO QHS #90 tabs 04/15/23 [Rx Last Taken Unknown] dapagliflozin propanediol 10 mg tablet (Farxiga) 10 mg PO DAILY #30 tabs 04/15/23 [Rx Last Taken Unknown] icosapent ethyl 1 gram capsule (Vascepa) 2 g (2 x 1 gram) PO BID 30 days #120 caps 04/15/23 [Rx Last Taken Unknown] metformin 1,000 mg tablet 1,000 mg PO BID #180 tabs 04/15/23 [Rx Last Taken Unknown] hydrocodone-acetaminophen 5-325mg 5mg-325mg 1 tab PO Q6H PRN PRN Pain 3 days #10 TABLETS 04/25/23 [Rx Last Taken Unknown] clindamycin HCl 300 mg capsule (Cleocin HCl) 300 mg PO Q6H #40 CAPSULES 05/24/23 [Rx Last Taken Unknown] Allergy/AdvReac Type Severity Reaction Status Date / Time amoxicillin Allergy Angioedema Verified 05/24/23 00:23 lindane Allergy Rash Verified 05/24/23 00:23 Family History Father Asthma Alcoholism Arthritis Heart disease Hypertension High cholesterol CVA (cerebral vascular accident) Lung cancer Grandfather Myocardial infarction Surgical History H/O coronary artery bypass surgery (2006) History of carotid endarterectomy (01/06/14) History of hernia repair History of left heart catheterization (06/11/18) Social History Smoking Status: Current every day smoker tobacco type: cigarettes Tobacco: How many years used: 45 Electronic Cigarette Use: not used second hand exposure: Yes quit status: considering quitting counseling given: provider counseling alcohol intake: never substance use type: does not use caffeine: Yes Type: coffee Number of servings: 5 what type of physical activity do you participate in: none ROS ROS ED Constitutional Constitutional ED: Denies chills or fever(s) Eyes Eyes: Denies blurry vision or change in vision ENT ENT ED: Denies rhinorrhea or sore throat Cardiovascular Cardiovascular: Denies chest pain or palpitations Respiratory/Chest Respiratory/Chest: Denies cough or dyspnea Gastrointestinal Gastrointestinal: Denies nausea or vomiting Genitourinary Genitourinary ED: Denies dysuria or hematuria Musculoskeletal Musculoskeletal: Denies back pain or neck pain Integumentary Reports abscess; Denies rash Neurologic Neurologic: Denies headache(s) or weakness Allergic/Immunologic Allergic/Immunologic ED: Denies mouth swelling or urticaria EXAM Physical Exam Const Vital Signs: 05/24/23 00:23 Temperature 96.7 F L Temperature Source Temporal Pulse Rate 77 Respiratory Rate 18 Blood Pressure 131/55 H Blood Pressure Mean 80 Pulse Ox 95 Oxygen Delivery Method Room Air Positive well nourished and well developed General Appearance ED: well developed and NAD HEENT Reports moist mucous membranes Neck supple and no JVD Extremity normal to inspection Neuro oriented x3, CN's II-XII intact bilaterally and no sensory deficits noted Sensorium / Orientation: alert Motor Exam: strength 5/5 throughout Psych mental status grossly normal Skin Skin Narrative: There is a superficial abscess in the left inguinal area. There is a small pustule noted in the area. There is tenderness to palpation. There is some mild induration. There is mild fluctuance. There is no active discharge or drainage noted. MDM MDM MDM Narrative Medical decision making narrative: Patient was advised of the need for incision and drainage. Informed consent was obtained. The area was cleaned with chlorhexidine prep. The area was anesthetized with 1% plain lidocaine locally. A small linear incision using an 11 blade scalpel. A moderate amount of purulent drainage was expressed. The wound was left open. Bacitracin dressing was applied. Patient tolerated the procedure well. Patient was instructed to use warm compresses. Patient was given a dose of clindamycin here. Patient is given a prescription for clindamycin. Patient was instructed to follow-up with her primary care physician in 5 to 7 days. Patient understood and was agreeable with the plan. All questions were answered. Discharge Plan Triage Chief Complaint: Wound Check ED Provider: Saúl Aguilar Dx/Rx/DC Orders Clinical Impression: Abscess of left groin, Nicotine dependence Instructions: ED Abscess Incision And Drainage Prescriptions: New clindamycin HCl [Cleocin HCl] 300 mg capsule 300 mg PO Q6H Qty: 40 0RF No Action nitroglycerin 0.4 mg tablet, sublingual 0.4 mg Sublingual Q5M PRN (Reason: Cardiac/Chest Pain) Qty: 20 1RF Humalog Mix 50-50 KwikPen 100 unit/mL (50-50) insulin pen 70 unit SC BID Qty: 15 3RF Rx Instructions: 9 pm: eat a meal, take 40 units insulin 1 am: eat a meal during work break 8 am: eat a meal take 50 units insulin alfuzosin 10 mg tablet extended release 24 hr 10 mg PO DAILY Hold Instructions: Resume on 07/26/21. Rx Instructions: administer after the same meal each day atorvastatin 80 mg tablet 80 mg PO QHS Qty: 90 3RF metformin 1,000 mg tablet 1,000 mg PO BID Qty: 180 1RF Farxiga 10 mg tablet 10 mg PO DAILY Qty: 30 5RF icosapent ethyl [Vascepa] 1 gram capsule 2 g PO BID 30 Days Qty: 120 12RF hydrocodone-acetaminophen 5-325 mg tablet 1 tab PO Q6H PRN PRN (Reason: Pain) 3 Days Qty: 10 0RF (DME) FreeStyle Test Strip See Rx Instructions .ROUTE .MEDSUPPLY Qty: 50 11RF Rx Instructions: check blood glucose daily (DME) blood-glucose meter [FreeStyle System Kit] Kit See Rx Instructions .ROUTE .MEDSUPPLY Qty: 1 0RF Rx Instructions: check blood glucose daily for type 2 DM (DME) lancets [FreeStyle Lancets] 28 gauge misc See Rx Instructions .ROUTE .MEDSUPPLY Qty: 50 11RF Rx Instructions: Check blood glucose daily for type 2 DM (DME) pen needle, diabetic [1st Tier Unifine Pentips Plus] 31 gauge x 3/16 needle See Rx Instructions .ROUTE .MEDSUPPLY Qty: 100 1RF Rx Instructions: use with lantus nightly aspirin 81 mg tablet,chewable 81 mg PO DAILY@0800 Qty: 90 3RF fenofibrate micronized 134 mg capsule 134 mg PO DAILY Qty: 90 3RF omeprazole 20 mg capsule,delayed release(DR/EC) See Rx Instructions .ROUTE .COMPLEX Qty: 60 1RF Dose Instruction: TAKE 1 CAPSULE BY MOUTH DAILY Rx Instructions: TAKE 1 CAPSULE BY MOUTH DAILY buspirone 5 mg tablet 5 mg PO BID Qty: 180 1RF isosorbide mononitrate 30 mg tablet extended release 24 hr See Rx Instructions .ROUTE .COMPLEX Qty: 90 3RF Dose Instruction: TAKE 1 TABLET BY MOUTH EVERY DAY Rx Instructions: TAKE 1 TABLET BY MOUTH EVERY DAY albuterol sulfate 90 mcg/actuation HFA aerosol inhaler 2 puff inhalation Q4H PRN PRN (Reason: Wheezing) Qty: 1 3RF atenolol 50 mg tablet 50 mg PO DAILY Qty: 90 3RF losartan 25 mg tablet 25 mg PO DAILY Qty: 90 3RF Dulera 100-5 mcg/actuation HFA aerosol inhaler 2 puff inhalation BID Qty: 13 0RF Primary Care Provider: Ant Nuñez Referrals: Ant Nuñez, [Primary Care Provider] - 3-5 Days Disposition Disposition: Home, Self Care
--- OUTSIDE RECORDS SUMMARY | 2023-05-24 00:39 | XMS RPT_ITS | CCD ---
Author Name Unknown Address [address] [place] [address] Organization [facility] Care Team Providers Care Car Sales Representative Name Role Phone Unavailable Primary Care Provider [...] Translations: [ETODOLAC] Drug Allergy 03-12-2005 GI Upset [facility] (6 sources) Amoxicillin; Translations: [AMOXICILLIN] Drug Allergy 12-30-2021 Angioedema [facility] (6 sources) Lindane; Translations: [LINDANE] Drug Allergy 12-30-2021 Rash [facility] Medications Completed/Discontinued Medications Medication Drug Class(es) Dates Sig (Normalized) Sig (Original) [id number] 200 actuat albuterol 0.09 mg/actuat metered dose [...] 98.01 [degF] Yamilka Baltazar MD Work Phone: [facility] 02-04-2022 08:30-0400 Body weight 87.18 kg Yamilka Baltazar MD Work Phone: [facility] 02-04-2022 08:30-0400 Diastolic blood pressure 74 mm[Hg] Yamilka Baltazar MD Work Phone: [facility] 02-04-2022 08:30-0400 Heart rate 80 /min Yamilka Baltazar MD Work Phone: [facility] 02-04-2022 08:30-0400 SaO2% (BldA) [Mass fraction] 98 % Yamilka Baltazar MD Work Phone: [facility] 02-04-2022 08:30-0400 Systolic blood pressure 128 mm[Hg] Yamilka Baltazar MD Work Phone: [facility] 01-28-2022 10:40-0400 Body height 180.3 cm Yamilka Baltazar MD Work Phone: [facility] 01-28-2022 10:40-0400 Body temperature 97.3 [degF] Yamilka Baltazar MD Work Phone: [facility] 01-28-2022 10:40-0400 Body weight 87.36 kg Yamilka Baltazar MD Work Phone: [facility] 01-28-2022 10:40-0400 Diastolic blood pressure 70 mm[Hg] Yamilka Baltazar MD Work Phone: [facility] 01-28-2022 10:40-0400 Heart rate 79 /min Yamilka Baltazar MD Work Phone: [facility] 01-28-2022 10:40-0400 SaO2% (BldA) [Mass fraction] 98 % Yamilka Baltazar MD Work Phone: [facility] 01-28-2022 10:40-0400 Systolic blood pressure 124 mm[Hg] Yamilka Baltazar MD Work Phone: [facility] 01-06-2022 09:25-0400 Body height 180.3 cm Yamilka Baltazar MD Work Phone: [facility] 01-06-2022 09:25-0400 Body temperature 97.7 [degF] Yamilka Baltazar MD Work Phone: [facility] 01-06-2022 09:25-0400 Body weight 88.27 kg Yamilka Baltazar MD Work Phone: [facility] 01-06-2022 09:25-0400 Diastolic blood pressure 77 mm[Hg] Yamilka Baltazar MD Work Phone: [facility] 01-06-2022 09:25-0400 Heart rate 84 /min Yamilka Baltazar MD Work Phone: [facility] 01-06-2022 09:25-0400 SaO2% (BldA) [Mass fraction] 99 % Yamilka Baltazar MD Work Phone: [facility] 01-06-2022 09:25-0400 Systolic blood pressure 160 mm[Hg] Yamilka Baltazar MD Work Phone: [facility] 07-18-2021 12:52-0400 Body temperature 98.01 [degF] Gab Culver SENIOR FORMULATION SCIENTIST.KOSHER DIETARY SERVICE MANAGER Work Phone: [facility] 07-18-2021 12:52-0400 Body weight 88 kg Gab Culver SENIOR FORMULATION SCIENTIST.KOSHER DIETARY SERVICE MANAGER Work Phone: [facility] 07-18-2021 12:52-0400 Diastolic blood pressure 74 mm[Hg] Gab Culver SENIOR FORMULATION SCIENTIST.KOSHER DIETARY SERVICE MANAGER Work Phone: [facility] 07-18-2021 12:52-0400 Heart rate 100 /min Gab Culver SENIOR FORMULATION SCIENTIST.KOSHER DIETARY SERVICE MANAGER Work Phone: [facility] 07-18-2021 12:52-0400 Respiratory rate 18 /min Gab Culver SENIOR FORMULATION SCIENTIST.KOSHER DIETARY SERVICE MANAGER Work Phone: [facility] 07-18-2021 12:52-0400 SaO2% (BldA) [Mass fraction] 96 % Gab Culver SENIOR FORMULATION SCIENTIST.KOSHER DIETARY SERVICE MANAGER Work Phone: [facility] 07-18-2021 12:52-0400 Systolic blood pressure 122 mm[Hg] Gab Culver SENIOR FORMULATION SCIENTIST.KOSHER DIETARY SERVICE MANAGER Work Phone: [facility] Encounters Encounter Date Encounter Type Care Provider Facility Start: 02-04-2022 End: 02-04-2022 ambulatory YAMILKA BALTAZAR Facility:[facility] Start: 02-04-2022 End: 02-04-2022 Patient encounter procedure aYmilka Baltazar MD Work Phone: General Surgery Procedures Date Procedure Procedure Detail Performing Clinician Start: 01-28-2022 Ct pelvis w/o contra st material Yamilka Baltazar MD Work Phone: Start: 12-23-2016 Adult depression screening assessment Gab Culver SENIOR FORMULATION SCIENTIST.KOSHER DIETARY SERVICE MANAGER Work Phone: Plan of Treatment Date Care Activity Detail Author Start: 06-11-2024 Urine microalbumin profile DTaP,Tdap,Td Vaccine (2 - Td or Tdap) [facility] Start: 12-05-2022 Influenza vaccination Influenza Vaccine (#1) [facility] Start: 04-06-2022 Depression Assessment Depression Assessment [facility] Start: 12-05-2021 Influenza vaccination [facility] Start: 04-06-2021 DEPRESSION ASSESSMENT DEPRESSION ASSESSMENT [facility] Start: 06-06-2020 PROSTATE CANCER SCREENING DISCUSSION PROSTATE CANCER SCREENING DISCUSSION [facility] Start: 2020 Hepatitis B Vaccine (1 of 3 - Risk 3-dose series) Hepatitis B Vaccine (1 of 3 - Risk 3-dose series) [facility] Start: 2020 RSV Vaccine (1 - 1-dose 60+ series) RSV Vaccine (1 - 1-dose 60+ series) [facility] Start: 06-18-2019 ANNUAL PCP TEAM CHRONIC DISEASE VISIT ANNUAL PCP TEAM CHRONIC DISEASE VISIT [facility] Start: 12-23-2017 Adult depression screening assessment DEPRESSION SCREENING [facility] Start: 01-13-2017 3 comp foot exam completed DIABETIC FOOT EXAM [facility] Start: 01-13-2017 Hepatitis B surface antibody level LDL CHOLESTEROL [facility] Start: 10-08-2016 PNEUMOCOCCAL (2 - PCV) PNEUMOCOCCAL (2 - PCV) [facility] Start: 10-08-2016 Pneumococcal vaccination Pneumococcal Vaccine (2 - PCV) [facility] Start: 04-15-2016 Hemoglobin A1c/Hemoglobin.total in Blood HBA1C [facility] Start: 01-22-2015 Influenza vaccination LUNG CANCER SCREENING [facility] Start: 01-22-2010 Influenza vaccination LUNG CANCER SCREENING [facility] Start: 01-22-2010 SHINGRIX VACCINE (1 of 2) SHINGRIX VACCINE (1 of 2) [facility] Start: 01-22-2005 COLOGUARD (FIT-DNA) COLOGUARD (FIT-DNA) [facility] Start: 01-22-2005 Colonoscopy COLONOSCOPY [facility] Start: 01-22-2005 COLORECTAL CANCER SCREENING COLORECTAL CANCER SCREENING [facility] Start: 01-22-[address] COLONOGRAPHY [facility] Start: 01-22-2005 FECAL OCCULT BLOOD FECAL OCCULT BLOOD [facility] Start: 01-22-2005 SIGMOIDOSCOPY SIGMOIDOSCOPY [facility] Start: 01-22-1979 Urine microalbumin profile DTAP,TDAP,TD (1 - Tdap) [facility] Start: 01-22-1978 ANNUAL PCP TEAM CHRONIC DISEASE VISIT ANNUAL PCP TEAM CHRONIC DISEASE VISIT [facility] Start: 01-22-1978 HIV SCREENING HIV SCREENING [facility] Start: 01-22-1970 Hepatitis B screening URINE ALBUMIN:CREATININE RATIO [facility] Start: 01-22-1970 Hepatitis C antibody, confirmatory test DILATED RETINAL EXAM [facility] Start: 01-22-1965 COVID-19 VACCINE (1) COVID-19 VACCINE (1) [facility] Start: 1960 COVID-19 VACCINE (#1) COVID-19 VACCINE (#1) [facility] End: 02-05-2023 Ct pelvis w/o contrast material CT PELVIS WO IVCON Radiology Routine Left groin pain 1 Occurrences starting 01/06/2022 until 02/05/2023 [facility] Work Phone: Immunizations Immunization Date Immunization Notes Care Provider Fa radha 12-23-2016 influenza, injectabl e, quadrivalent, contains preservative Gab Culver SENIOR FORMULATION SCIENTIST.KOSHER DIETARY SERVICE MANAGER Work Phone: [facility] 12-23-2016 influenza virus vacc ine, unspecified formulation Ct (I-Stat) Work Phone: [facility] 10-09-2015 pneumococcal polysaccharide vaccine, 23 valent Gab Culver SENIOR FORMULATION SCIENTIST.KOSHER DIETARY SERVICE MANAGER Work Phone: [facility] Work Phone: Payers Date Payer Category Payer Medicaid [employer] [id number] 2020-Present [phone] [address] [place] [address] Medicaid [id number] 2020 Medicaid [id number] 2020 Medicaid [id number] Social History Date Type Detail Facility Start: 01-06-2022 Tobacco smoking stat us TXIS Smokes tobacco daily [facility] Work Phone: History of tobacco use [facility]igarette [facility] Start: 07-18-2021 End: 01-28-2022 Alcohol intake Current non-drinker of alcohol (finding) [facility] Start: 1960 Sex Assigned At Not on file [facility] Start: 07-08-2021 End: 02-04-2022 Exposure to SARS-CoV-2 (event) Not sure [facility] Start: 03-14-2020 End: 01-06-2022 Cigarettes smoked current (pack per day) - Reported 2 [facility] Start: 01-06-2022 Tobacco use and exposure Smokeless tobacco non-user [facility] Start: 01-06-2022 Tobacco Comment started at age 14 [facility] Start: 03-14-2020 End: 01-28-2022 Tobacco use panel [facility] National Score (1-10 0), lower number is lower risk Not on file [facility] Medical Equipment Procedure Code Equipment Code Equipment Origin al Text Equipment Identifier Dates Start: 01-21-2016 Clinical Notes 04-01-2021 to 02-04-2022 Yamilka Baltazar MD - 02/04/2022 9:05 AM Marjorie Baltazar MD - 01/28/2022 5:38 PM EDTReHazel Van, RT(R) - 01/28/2022 10:00 AM Marjorie Baltazar MD - 01/06/2022 7:04 PM EDT Note Date & Type Note Facility 02-04-2022 Note HNO ID: [id number] Author: Yamilka Baltazar MD Service: ? Author [...] non-ST elevation myocardial infarction (NSTEMI) 06/11/[address] Her[facility] Espinosa Hypertension Other emphysema (HCC) [...] any blood vessels/nerv (more content not included)... [facility] 02-04-2022 History of Present illness Narrative [...] non-ST elevation myocardial infarction (NSTEMI) 06/11/[address] Her[facility] Espinosa Hypertension Other emphysema (HCC) [...] Yamilka Baltazar MD documented in this encounter [facility] 01-28-2022 Note HNO ID: [id number] Author: Yamilka Baltazar MD Service: ? Author [...] non-ST elevation myocardial infarction (NSTEMI) 06/11/[address] Her[facility] Espinosa Hypertension Other emphysema (HCC) [...] completing appropriate m (more content not included)... [facility] 01-28-2022 History of Present illness Narrative [...] non-ST elevation myocardial infarction (NSTEMI) 06/11/[address] Herrera Espinosa Hypertension Other emphysema (HCC) [...] Yamilka Baltazar MD documented in this encounter [facility] 01-28-2022 Note HNO ID: [id number] Author: ROBLES Leblanc) Service: ? Author Type: Steam Service Inspector Type: Progress Notes Filed: 01/28/2022 3:01 [...] RT Betsy(Suman) January 28, 2022 3:01 PM [facility] 01-28-2022 History of Present illness Narrative [...] 2022 3:01 PM documented in this encounter [facility] 01-06-2022 Note HNO ID: [id number] Author: Yamilka Baltazar MD Service: ? Author [...] non-ST elevation myocardial infarction (NSTEMI) 06/11/[address] Herrera Espinosa Hypertension Other emphysema (HCC) [...] OF SYSTEMS: General: (more content not included)... [facility] 01-06-2022 History of Present illness Narrative [...] non-ST elevation myocardial infarction (NSTEMI) 06/11/[address] Her[facility] Espinosa Hypertension Other emphysema (HCC) [...] entered by the nurse and reviewed by ga Nursing Notes: Allison Haines RN 01/06/2022 9:32 [...] of any pertinent laboratory studies/radiological imaging/medical records, [id number] patient care, obtaining oral medical history from the patient in this encounter, performing a medically appropriate examination, counseling and educating the patient/family/caregiver, and ordering and/or scheduling of medications/tests/procedures, and completing appropriate medical documentation. Yamilka Baltazar MD documented in this encounter [facility] 01-06-2022 Nurse Note REVIEW OF SYSTEMS: General: [...] Allison Haines RN documented in this encounter [facility] 07-18-2021 Note HNO ID: [id number] Author: Gab Culver APRN.KOSHER DIETARY SERVICE MANAGER Service: ? Author Type: Nurse Practitioner Type: [...] type 2 in obese (HCC) - Hyperlipidemia [facility] [address] [facility] Herrera Espinosa - Hypertension - Pancreatitis [...] is not diaphoretic (more content not included)... [facility] 07-18-2021 Instructions Gab Culver APRN.[facility] - 07/18/2021 1:15 PM EDT RESPIRATORY INFECTION [...] by coughs, sneezes, and direct contact, especially [id number]. A respiratory tract infection usually clears up [...] F (39 C). documented in this encounter [facility] 07-18-2021 History of Present illness Narrative Subjective [...] mellitus type 2 in obese (HCC) Hyperlipidemia [facility] [address] [facility] Herrera Espinosa Hypertension Pancreatitis Tobacco use [...] of care. This note was generated using [employer] software. It may contain errors in wording, punctuation, or spelling. Gab Culver APRN.TURNER documented in this encounter [facility] 04-01-2021 Note HNO ID: [id number] Author: Maday Puri APRN.CNP Service: ? Author [...] type 2 in obese (HCC) - Hyperlipidemia [facility] [address] [facility] Herrera Espinosa - Hypertension - Pancreatitis [...] if it reli (more content not included)... [facility] Left groin pain- Primary Abdominal pain, left lower quadrant [facility] Diagnosis Left groin pain- Primary Abdominal pain, left lower quadrant [facility] Diagnosis Recurrent left inguinal hernia- Primary Inguinal hernia without mention of obstruction or gangrene, recurrent unilateral or unspecified [facility] Diagnosis Left groin pain Abdominal pain, left lower quadrant documented in this encounter [facility] Advance Directives Documents on File Type Date Recorded Patient Food And Nutrition Services Assistant Expl anation Advance Directive(s) 01/20/2017 7:47 AM Advance Directive(s) 09/05/2015 4:07 PM Reason for Referral Specialty Diagnoses / Procedures Referred By David rausch Referred To Contact CT IMAGING Diagnoses Left groin pain Procedures CT PELVIS WO IVCON CT PELVIS W/O CONTRAST MATERIAL Yamilka Baltazar MD [address] [place] [address] Ct Imaging Referral ID Status Reason Start Date Expiration Date Visits Requested Visits Authorized [id number] Additional Clinical Info Needed Auto-Generat ed Referral 01/06/2022 02/05/2023 1 1 Specialty Diagnoses / Procedures Referred By Contac t Referred To Contact CT IMAGING Diagnoses Left groin pain Procedures CT PELVIS WO IVCON CT PELVIS W/O CONTRAST MATERIAL Yamilka Baltazar MD [address] [place] [address] [place] [address] Referral ID Status Reason Start Date Expiration Date V isits Requested Visits Authorized [id number] Closed Auto-Generate d Referral 01/06/2022 03/16/2022 2 [...] or prosecute any alcohol or drug abuse patient.[facility] the event this information is protected by the Federal Confidentiality of Alcohol and Drug Abuse Patient Records regulations: The Federal rules restrict any use of the information to criminally investigate or prosecute any alcohol or drug abuse patient.[facility] the event this information is protected by the Federal Confidentiality of Alcohol and Drug Abuse Patient Records regulations: The Federal rules restrict any use of the information to criminally investigate or prosecute any alcohol or drug abuse patient.[facility] the event this information is protected by the Federal Confidentiality of Alcohol and Drug Abuse Patient Records regulations: The Federal rules restrict any use of the information to criminally investigate or prosecute any alcohol or drug abuse patient.[facility] the event this information is protected by the Federal Confidentiality of Alcohol and Drug Abuse Patient Records regulations: The Federal rules restrict any use of the information to criminally investigate or prosecute any alcohol or drug abuse patient.[facility] the event this information is protected by the Federal Confidentiality of Alcohol and Drug Abuse Patient Records regulations: The Federal rules restrict any use of the information to criminally investigate or prosecute any alcohol or drug abuse patient.[facility] Reason for Visit (unrecogniz ed section and [...] Yamilka Baltazar MD [address] [place] [address] [place] [address] Referral ID Status Reason Start Date Expiration Date V isits Requested Visits Authorized [id number] Closed Auto-Generate d Referral 01/06/2022 03/16/2022 2 2 Care Teams (unrecognized sec tion and content) Car Sales Representative Relationship Specialty Start Date End Date Xiang Nuñez DO [address] [place] [address] PCP - General Family Medicine 01/03/22 Car Sales Representative Relationship Specialty Start Date End Date Xiang Nuñez DO [address] [place] [address] PCP - General Family Medicine 01/03/22 Car Sales Representative Relationship Specialty Start Date End Date Xiang Nuñez DO [address] [place] [address] PCP - General Family Medicine 01/03/22 Car Sales Representative Relationship Specialty Start Date End Date Xiang Nuñez DO [address] [place] [address] PCP - General Family Medicine 01/03/22 (unrecognized [...] BE BASED ON THE PRIMARY CLINICAL RECORDS. [employer] [facility]. provides no warranty or guarantee of the accuracy or completeness of information in this document.
[2023-05-24] MEDS: Clindamycin HCl 150 MG Capsule 300 MG PO (01:30)
[2023-05-24] MEDS: Lidocaine 1% (20 ml mdv) 20 ML Vial INFILT (01:30)
[2023-05-24 02:38] VITALS: BP 99/61; PULSE 71; RESP 18; TEMP 36.5; O2SAT 96
== END 2023-05-24 02:40 | disposition home or self-care (01) ==
PROVIDERS: Emergency Provider Emergency Medicine; PCP Family Medicine; Visit Provider Emergency Medicine
DX: L02.214 Cutaneous abscess of groin (principal); Z79.4 Long term (current) use of insulin; E11.9 Type 2 diabetes mellitus without complications; F17.210 Nicotine dependence, cigarettes, uncomplicated; I25.10 Atherosclerotic heart disease of native coronary artery without angina pectoris; I10 Essential (primary) hypertension; I25.2 Old myocardial infarction; E78.5 Hyperlipidemia, unspecified; Z79.82 Long term (current) use of aspirin; Z79.899 Other long term (current) drug therapy; K21.9 Gastro-esophageal reflux disease without esophagitis; J45.909 Unspecified asthma, uncomplicated; Z79.51 Long term (current) use of inhaled steroids; Z79.84 Long term (current) use of oral hypoglycemic drugs
CPT/HCPCS: 10060; 99283

== ENCOUNTER → 2023-06-02 | Outpatient (CLI) | payer MEDICAID, SELFPAY ==
--- NOTE | 2023-06-02 13:27 | CT_ITS ---
STUDY: LOW DOSE CT LUNG CANCER SCREENING REASON FOR EXAM: Male, 63 years old. Lung cancer screening -- 48 pk yr hx;asymptomatic; current smoker RADIATION DOSAGE (If Supplied By Facility): CTDIvol = ( 4.02 ) mGy, DLP = ( 118.83 ) mGycm TECHNIQUE: No contrast was administered. Low dose technique was utilized (average mAS-38 and kVp 120). 1.25 mm axial source images with a slice interval of 1.25-mm were reconstructed in lung windows. 2.5 mm axial source images with a slice interval of 2.5-mm were reconstructed in lung windows. 5.0 mm axial source images with a slice interval of 5.0-mm were reconstructed in soft tissue windows. COMPARISON: Comparison is made with prior study dated March 11, 2022. NODULES: No suspicious nodules are seen. Emphysema: Stable emphysematous changes. Stable mild linear scarring in the anterior aspect of the right upper lobe as well as at the lung bases. Endobronchial lesion: None Aorta: Atherosclerotic plaque formation of the aortic arch. CORONARY ARTERIES: Coronary artery calcification is seen. Heart: Unremarkable Pulmonary artery: Unremarkable Mediastinal nodes: Small benign-appearing mediastinal lymph nodes. Other chest and abdominal findings: CT/Low Dose CT Lung Screening IMPRESSION: Lung-RADS category 2 - Continue annual screening with LDCT in 12 months. IMPORTANT NOTES FOR USE: ACR Lung-RADS Version 1.1 Assessment Categories Release Date: 2018 Category: Coded 0-4 bases on nodule(s) with highest degree of suspicion. Negative screen is defined as categories 1 and 2; a positive screen is defined as categories 3 and 4. Category 3 and 4A nodules that are unchanged on interval CT should be coded as category 2, and individuals returned to screening in 12 months. Category 4X: Category 3 or 4 nodules with additional imaging findings that increase the suspicion of lung cancer, such as spiculation, GGN that doubles in size in 1 year, enlarged lymph notes, etc. Category Modifiers: S (significant finding unrelated to lung cancer) Electronically Signed: Sam Duncan MD at 14:15 EST ,
--- OUTSIDE RECORDS SUMMARY | 2023-06-02 22:18 | XMS RPT_ITS | CCD ---
Author Name Unknown Address [address] [place] [address] Organization [facility] Care Team Providers Care Site Monitor Name Role Phone Unavailable Primary Care Provider [...] Translations: [ETODOLAC] Drug Allergy 03-12-2005 GI Upset [facility] (6 sources) Amoxicillin; Translations: [AMOXICILLIN] Drug Allergy 12-30-2021 Angioedema [facility] (6 sources) Lindane; Translations: [LINDANE] Drug Allergy 12-30-2021 Rash [facility] Medications Completed/Discontinued Medications Medication Drug Class(es) Dates Sig (Normalized) Sig (Original) [id number] 200 actuat albuterol 0.09 mg/actuat metered dose [...] 98.01 [degF] Yamilka Baltazar MD Work Phone: [facility] 02-04-2022 08:30-0400 Body weight 87.18 kg Yamilka Baltazar MD Work Phone: [facility] 02-04-2022 08:30-0400 Diastolic blood pressure 74 mm[Hg] Yamilka Baltazar MD Work Phone: [facility] 02-04-2022 08:30-0400 Heart rate 80 /min Yamilka Baltazar MD Work Phone: [facility] 02-04-2022 08:30-0400 SaO2% (BldA) [Mass fraction] 98 % Yamilka Baltazar MD Work Phone: [facility] 02-04-2022 08:30-0400 Systolic blood pressure 128 mm[Hg] Yamilka Baltazar MD Work Phone: [facility] 01-28-2022 10:40-0400 Body height 180.3 cm Yamilka Baltazar MD Work Phone: [facility] 01-28-2022 10:40-0400 Body temperature 97.3 [degF] Yamilka Baltazar MD Work Phone: [facility] 01-28-2022 10:40-0400 Body weight 87.36 kg Yamilka Baltazar MD Work Phone: [facility] 01-28-2022 10:40-0400 Diastolic blood pressure 70 mm[Hg] Yamilka Baltazar MD Work Phone: [facility] 01-28-2022 10:40-0400 Heart rate 79 /min Yaimlka Baltazar MD Work Phone: [facility] 01-28-2022 10:40-0400 SaO2% (BldA) [Mass fraction] 98 % Yamilka Baltazar MD Work Phone: [facility] 01-28-2022 10:40-0400 Systolic blood pressure 124 mm[Hg] Yamilka Baltazar MD Work Phone: [facility] 01-06-2022 09:25-0400 Body height 180.3 cm Yamilka Baltazar MD Work Phone: [facility] 01-06-2022 09:25-0400 Body temperature 97.7 [degF] Yamilka Baltazar MD Work Phone: [facility] 01-06-2022 09:25-0400 Body weight 88.27 kg Yamilka Baltazar MD Work Phone: [facility] 01-06-2022 09:25-0400 Diastolic blood pressure 77 mm[Hg] Yamilka Baltazar MD Work Phone: [facility] 01-06-2022 09:25-0400 Heart rate 84 /min Yamilka Baltazar MD Work Phone: [facility] 01-06-2022 09:25-0400 SaO2% (BldA) [Mass fraction] 99 % Yamilka Baltazar MD Work Phone: [facility] 01-06-2022 09:25-0400 Systolic blood pressure 160 mm[Hg] Yamilka Baltazar MD Work Phone: [facility] 07-18-2021 12:52-0400 Body temperature 98.01 [degF] Gab Culver SHELLFISH MANAGER.DETENTION OFFICER Work Phone: [facility] 07-18-2021 12:52-0400 Body weight 88 kg Gab Culver SHELLFISH MANAGER.DETENTION OFFICER Work Phone: [facility] 07-18-2021 12:52-0400 Diastolic blood pressure 74 mm[Hg] Gab Culver SHELLFISH MANAGER.DETENTION OFFICER Work Phone: [facility] 07-18-2021 12:52-0400 Heart rate 100 /min Gab Culver SHELLFISH MANAGER.DETENTION OFFICER Work Phone: [facility] 07-18-2021 12:52-0400 Respiratory rate 18 /min Gab Culver SHELLFISH MANAGER.DETENTION OFFICER Work Phone: [facility] 07-18-2021 12:52-0400 SaO2% (BldA) [Mass fraction] 96 % Gab Culver SHELLFISH MANAGER.DETENTION OFFICER Work Phone: [facility] 07-18-2021 12:52-0400 Systolic blood pressure 122 mm[Hg] Gab Culver SHELLFISH MANAGER.DETENTION OFFICER Work Phone: [facility] Encounters Encounter Date Encounter Type Care Provider Facility Start: 02-04-2022 End: 02-04-2022 ambulatory YAMILKA BALTAZAR Facility:[facility] Start: 02-04-2022 End: 02-04-2022 Patient encounter procedure Yamilka Baltazar MD Work Phone: General Surgery Procedures Date Procedure Procedure Detail Performing Clinician Start: 01-28-2022 Ct pelvis w/o contra st material Yamilka Baltazar MD Work Phone: Start: 12-23-2016 Adult depression screening assessment Gab Culver SHELLFISH MANAGER.DETENTION OFFICER Work Phone: Plan of Treatment Date Care Activity Detail Author Start: 06-11-2024 Urine microalbumin profile DTaP,Tdap,Td Vaccine (2 - Td or Tdap) [facility] Start: 12-05-2022 Influenza vaccination Influenza Vaccine (#1) [facility] Start: 04-06-2022 Depression Assessment Depression Assessment [facility] Start: 12-05-2021 Influenza vaccination [facility] Start: 04-06-2021 DEPRESSION ASSESSMENT DEPRESSION ASSESSMENT [facility] Start: 06-06-2020 PROSTATE CANCER SCREENING DISCUSSION PROSTATE CANCER SCREENING DISCUSSION [facility] Start: 2020 Hepatitis B Vaccine (1 of 3 - Risk 3-dose series) Hepatitis B Vaccine (1 of 3 - Risk 3-dose series) [facility] Start: 2020 RSV Vaccine (1 - 1-dose 60+ series) RSV Vaccine (1 - 1-dose 60+ series) [facility] Start: 06-18-2019 ANNUAL PCP TEAM CHRONIC DISEASE VISIT ANNUAL PCP TEAM CHRONIC DISEASE VISIT [facility] Start: 12-23-2017 Adult depression screening assessment DEPRESSION SCREENING [facility] Start: 01-13-2017 3 comp foot exam completed DIABETIC FOOT EXAM [facility] Start: 01-13-2017 Hepatitis B surface antibody level LDL CHOLESTEROL [facility] Start: 10-08-2016 PNEUMOCOCCAL (2 - PCV) PNEUMOCOCCAL (2 - PCV) [facility] Start: 10-08-2016 Pneumococcal vaccination Pneumococcal Vaccine (2 - PCV) [facility] Start: 04-15-2016 Hemoglobin A1c/Hemoglobin.total in Blood HBA1C [facility] Start: 01-22-2015 Influenza vaccination LUNG CANCER SCREENING [facility] Start: 01-22-2010 Influenza vaccination LUNG CANCER SCREENING [facility] Start: 01-22-2010 SHINGRIX VACCINE (1 of 2) SHINGRIX VACCINE (1 of 2) [facility] Start: 01-22-2005 COLOGUARD (FIT-DNA) COLOGUARD (FIT-DNA) [facility] Start: 01-22-2005 Colonoscopy COLONOSCOPY [facility] Start: 01-22-2005 COLORECTAL CANCER SCREENING COLORECTAL CANCER SCREENING [facility] Start: 01-22-[address] COLONOGRAPHY [facility] Start: 01-22-2005 FECAL OCCULT BLOOD FECAL OCCULT BLOOD [facility] Start: 01-22-2005 SIGMOIDOSCOPY SIGMOIDOSCOPY [facility] Start: 01-22-1979 Urine microalbumin profile DTAP,TDAP,TD (1 - Tdap) [facility] Start: 01-22-1978 ANNUAL PCP TEAM CHRONIC DISEASE VISIT ANNUAL PCP TEAM CHRONIC DISEASE VISIT [facility] Start: 01-22-1978 HIV SCREENING HIV SCREENING [facility] Start: 01-22-1970 Hepatitis B screening URINE ALBUMIN:CREATININE RATIO [facility] Start: 01-22-1970 Hepatitis C antibody, confirmatory test DILATED RETINAL EXAM [facility] Start: 01-22-1965 COVID-19 VACCINE (1) COVID-19 VACCINE (1) [facility] Start: 1960 COVID-19 VACCINE (#1) COVID-19 VACCINE (#1) [facility] End: 02-05-2023 Ct pelvis w/o contrast material CT PELVIS WO IVCON Radiology Routine Left groin pain 1 Occurrences starting 01/06/2022 until 02/05/2023 [facility] Work Phone: Immunizations Immunization Date Immunization Notes Care Provider Fa radha 12-23-2016 influenza, injectabl e, quadrivalent, contains preservative Gab Culver SHELLFISH MANAGER.DETENTION OFFICER Work Phone: [facility] 12-23-2016 influenza virus vacc ine, unspecified formulation Ct (I-Stat) Work Phone: [facility] 10-09-2015 pneumococcal polysaccharide vaccine, 23 valent Gab Culver SHELLFISH MANAGER.DETENTION OFFICER Work Phone: [facility] Work Phone: Payers Date Payer Category Payer Medicaid [employer] [id number] 2020-Present [phone] [address] [place] [address] Medicaid [id number] 2020 Medicaid [id number] 2020 Medicaid [id number] Social History Date Type Detail Facility Start: 01-06-2022 Tobacco smoking stat us [facility] Smokes tobacco daily [facility] Work Phone: History of tobacco use Cigarette Smoker [facility] Start: 07-18-2021 End: 01-28-2022 Alcohol intake Current non-drinker of alcohol (finding) [facility] Start: 1960 Sex Assigned At Not on file [facility] Start: 07-08-2021 End: 02-04-2022 Exposure to SARS-CoV-2 (event) Not sure [facility] Start: 03-14-2020 End: 01-06-2022 Cigarettes smoked current (pack per day) - Reported 2 [facility] Start: 01-06-2022 Tobacco use and exposure Smokeless tobacco non-user [facility] Start: 01-06-2022 Tobacco Comment started at age 14 [facility] Start: 03-14-2020 End: 01-28-2022 Tobacco use panel [facility] National Score (1-10 0), lower number is lower risk Not on file [facility] Medical Equipment Procedure Code Equipment Code Equipment Origin al Text Equipment Identifier Dates Start: 01-21-2016 Clinical Notes 04-01-2021 to 02-04-2022 Yamilka Baltazar MD - 02/04/2022 9:05 AM Marjorie Baltazar MD - 01/28/2022 5:38 PM EDTReHazel Van, RT(R) - 01/28/2022 10:00 AM Marjorie Baltazar MD - 01/06/2022 7:04 PM EDT Note Date & Type Note Facility 02-04-2022 Note HNO ID: [id number] Author: Yamilka Baltazar MD Service: ? Author [...] non-ST elevation myocardial infarction (NSTEMI) 06/11/[address] Herrera Espinosa Hypertension Other emphysema (HCC) [...] any blood vessels/nerv (more content not included)... [place] 02-04-2022 History of Present illness Narrative Kana [...] non-ST elevation myocardial infarction (NSTEMI) 06/11/[address] Herrera Espinosa Hypertension Other emphysema (HCC) [...] Yamilka Baltazar MD documented in this encounter [facility] 01-28-2022 Note HNO ID: [id number] Author: Yamilka Baltazar MD Service: ? Author [...] non-ST elevation myocardial infarction (NSTEMI) 06/11/[address] Herrera Espinosa Hypertension Other emphysema (HCC) [...] completing appropriate m (more content not included)... [place] 01-28-2022 History of Present illness Narrative Kana [...] non-ST elevation myocardial infarction (NSTEMI) 06/11/[address] Herrera Espinosa Hypertension Other emphysema (HCC) [...] Yamilka Baltazar MD documented in this encounter [facility] 01-28-2022 Note HNO ID: [id number] Author: ROBLES Leblanc) Service: ? Author Type: Mud Car Worker Type: Progress Notes Filed: 01/28/2022 3:01 PM [...] RT Betsy(Suman) January 28, 2022 3:01 PM [place] 01-28-2022 History of Present illness Narrative Radiology [...] 2022 3:01 PM documented in this encounter [facility] 01-06-2022 Note HNO ID: [id number] Author: Yamilka Baltazar MD Service: ? Author [...] non-ST elevation myocardial infarction (NSTEMI) 06/11/[address] Herrera Espinosa Hypertension Other emphysema (HCC) [...] OF SYSTEMS: General: (more content not included)... [place] 01-06-2022 History of Present illness Narrative Kana [...] non-ST elevation myocardial infarction (NSTEMI) 06/11/[address] Herrera Espinosa Hypertension Other emphysema (HCC) [...] entered by the nurse and reviewed by dc Nursing Notes: Allison Haines RN 01/06/2022 9:32 [...] of any pertinent laboratory studies/radiological imaging/medical records, bolp-se-gniz patient care, obtaining oral medical history from the patient in this encounter, performing a medically appropriate examination, counseling and educating the patient/family/caregiver, and ordering and/or scheduling of medications/tests/procedures, and completing appropriate medical documentation. Yamilka Baltazar MD documented in this encounter [facility] 01-06-2022 Nurse Note REVIEW OF SYSTEMS: General: [...] Allison Haines RN documented in this encounter [facility] 07-18-2021 Note HNO ID: [id number] Author: Gab Culver APRN.DETENTION OFFICER Service: ? Author Type: Nurse Practitioner Type: [...] type 2 in obese (HCC) - Hyperlipidemia Actuary Clerk Dr. Herrera Espinosa - Hypertension - Pancreatitis [...] is not diaphoretic (more content not included)... [place] 07-18-2021 Instructions Gab Culver APRN.[facility] - 07/18/2021 1:15 PM EDT RESPIRATORY INFECTION [...] by coughs, sneezes, and direct contact, especially [id number]. A respiratory tract infection usually clears up [...] F (39 C). documented in this encounter [facility] 07-18-2021 History of Present illness Narrative Subjective [...] mellitus type 2 in obese (HCC) Hyperlipidemia Actuary Clerk Dr. Herrera Espinosa Hypertension Pancreatitis Tobacco use [...] of care. This note was generated using [employer] software. It may contain errors in wording, punctuation, or spelling. Gab Culver APRN.TURNER documented in this encounter [facility] 04-01-2021 Note HNO ID: [id number] Author: Maday Puri APRN.CNP Service: ? Author [...] type 2 in obese (HCC) - Hyperlipidemia Actuary Clerk Dr. Herrera Espinosa - Hypertension - Pancreatitis [...] if it reli (more content not included)... [place] [facility] Left groin pain- Primary Abdominal pain, left lower quadrant [facility] Diagnosis Left groin pain- Primary Abdominal pain, left lower quadrant [facility] Diagnosis Recurrent left inguinal hernia- Primary Inguinal hernia without mention of obstruction or gangrene, recurrent unilateral or unspecified [facility] Diagnosis Left groin pain Abdominal pain, left lower quadrant documented in this encounter [facility] Advance Directives Documents on File Type Date Recorded Patient 911 Operator Expl anation Advance Directive(s) 01/20/2017 7:47 AM Advance Directive(s) 09/05/2015 4:07 PM Reason for Referral Specialty Diagnoses / Procedures Referred By David rausch Referred To Contact CT IMAGING Diagnoses Left groin pain Procedures CT PELVIS WO IVCON CT PELVIS W/O CONTRAST MATERIAL Yamilka Baltazar MD [address] [place] [address] [address] Imaging Referral ID Status Reason Start Date Expiration Date Visits Requested Visits Authorized [id number] Additional Clinical Info Needed Auto-Generat ed Referral 01/06/2022 02/05/2023 1 1 Specialty Diagnoses / Procedures Referred By Contac t Referred To Contact CT IMAGING Diagnoses Left groin pain Procedures CT PELVIS WO IVCON CT PELVIS W/O CONTRAST MATERIAL Yamilka Baltazar MD [address] [place] [address] [place] [address] Referral ID Status Reason Start Date Expiration Date V isits Requested Visits Authorized [id number] Closed Auto-Generate d Referral 01/06/2022 03/16/2022 2 [...] or prosecute any alcohol or drug abuse patient.[facility] the event this information is protected by the Federal Confidentiality of Alcohol and Drug Abuse Patient Records regulations: The Federal rules restrict any use of the information to criminally investigate or prosecute any alcohol or drug abuse patient.[facility] the event this information is protected by the Federal Confidentiality of Alcohol and Drug Abuse Patient Records regulations: The Federal rules restrict any use of the information to criminally investigate or prosecute any alcohol or drug abuse patient.[facility] the event this information is protected by the Federal Confidentiality of Alcohol and Drug Abuse Patient Records regulations: The Federal rules restrict any use of the information to criminally investigate or prosecute any alcohol or drug abuse patient.[facility] the event this information is protected by the Federal Confidentiality of Alcohol and Drug Abuse Patient Records regulations: The Federal rules restrict any use of the information to criminally investigate or prosecute any alcohol or drug abuse patient.[facility] the event this information is protected by the Federal Confidentiality of Alcohol and Drug Abuse Patient Records regulations: The Federal rules restrict any use of the information to criminally investigate or prosecute any alcohol or drug abuse patient.[facility] Reason for Visit (unrecogniz ed section and [...] Yamilka Baltazar MD [address] [place] [address] [place] [address] Referral ID Status Reason Start Date Expiration Date V isits Requested Visits Authorized [id number] Closed Auto-Generate d Referral 01/06/2022 03/16/2022 2 2 Care Teams (unrecognized sec tion and content) Site Monitor Relationship Specialty Start Date End Date Xiang Nuñez DO [address] [place] [address] PCP - General Family Medicine 01/03/22 Site Monitor Relationship Specialty Start Date End Date Xiang Nuñez DO [address] [place] [address] PCP - General Family Medicine 01/03/22 Site Monitor Relationship Specialty Start Date End Date Xiang Nuñez DO [address] [place] [address] PCP - General Family Medicine 01/03/22 Site Monitor Relationship Specialty Start Date End Date Xiang Nuñez DO [address] [place] [address] PCP - General Family Medicine 01/03/22 (unrecognized [...] BE BASED ON THE PRIMARY CLINICAL RECORDS. [email or web address] [facility]. provides no warranty or guarantee of the accuracy or completeness of information in this document.
== END | disposition home or self-care (01) ==
LOC: CT 13:27
PROVIDERS: PCP Family Medicine; Referring Provider Nurse Practitioner Family; Visit Provider Nurse Practitioner Family
DX: Z87.891 Personal history of nicotine dependence (principal); Z12.2 Encounter for screening for malignant neoplasm of respiratory organs
CPT/HCPCS: 71271

== ENCOUNTER → 2023-08-12 | Outpatient (CLI) | payer MEDICAID, SELFPAY ==
--- NOTE | 2023-08-12 09:19 | CDU_ITS ---
Reason For Study: Dizziness Rt. Velocities/BP Lt. Velocities/BP Prox CCA 51.3/6 cm/sec. Prox CCA 84.2/20.4 cm/sec. Mid CCA 68.3/5 cm/sec. Mid CCA 91.9/25.9 cm/sec. Dist CCA 74.9/6 cm/sec. Dist CCA 105.1/25.3 cm/sec. Prox ICA 74.3 cm/sec. Prox ICA 148.4/40.8 cm/sec. Mid ICA 17.6/3.4 cm/sec. Mid ICA 105.2/30.3 cm/sec. Dist ICA 10.1 cm/sec. Dist ICA 72.3/24.8 cm/sec. Rt. ICA/CCA = 1.08. Lt. ICA/CCA = 1.61. Prox ECA 163.1/7.2 cm/sec. Prox ECA 219.3/14.5 cm/sec. Rt. Vert. 21.1/4.6 cm/sec. Lt. Vert. 61.4/13.9 cm/sec. Right Extracranial There is homogeneous, smooth atherosclerotic plaque noted in the right common carotid artery. There is heterogeneous, irregular atherosclerotic plaque noted in the right internal carotid artery. There is intimal thickening but no significant atherosclerotic plaque noted in the right external carotid artery. Antegrade flow is noted in the right vertebral artery. Left Extracranial There is heterogeneous, irregular atherosclerotic plaque noted in the left common carotid artery. There is heterogeneous, irregular atherosclerotic plaque noted in the left internal carotid artery. The atherosclerotic plaque causes acoustic shadowing. There is heterogeneous, irregular atherosclerotic plaque noted in the left external carotid artery. Antegrade flow is noted in the left vertebral artery. Multiple Lt Thyroid nodules noted. Procedure This is a Carotid Duplex examination using B-mode, color flow and specral Doppler. Carotid Duplex [id number]. Preliminary report given to Tiffany COHEN. Exam performed in department. VL/Carotid Duplex Ultrasound Interpretation Summary Right internal carotid artery with significant reduced velocity and high resist ance waveforms, may represent more distal occlusion. Alternative imaging may be beneficial. Moderate (50-69%) stenosis left extracranial internal carotid. Patent and antegrade vertebrals bilaterally. Multiple thyroid nodules identified. Ordering Physician: Ronit Galvez Referring Physician: Rebel Nuñez M.D. Performed By: Shyann Hernández RVT
== END | disposition home or self-care (01) ==
LOC: CVS 09:15
PROVIDERS: PCP Family Medicine; Referring Provider Nurse Practitioner Gerontology; Visit Provider Nurse Practitioner Gerontology
DX: I65.21 Occlusion and stenosis of right carotid artery (principal); R42 Dizziness and giddiness
CPT/HCPCS: 93880

== ENCOUNTER 2023-08-23 18:22 | Emergency (ER) | payer MEDICAID, SELFPAY ==
[2023-08-23 18:23] VITALS: BP 121/66; PULSE 65; RESP 16; TEMP 36.3; O2SAT 98; BMI 27.1
--- NOTE | 2023-08-23 18:52 | ED.VIS.GI ---
HPI HPI - GI History of Present Illness Chief Complaint: Nausea/Vomiting/Diarrhea Narrative Narrative: 63-year-old male presenting with nausea, vomiting, diarrhea which started this morning when he woke up. He states yesterday he ate leftover tater tot casserole and his daughter also had this and she did not get sick. States he believes had a fever of 101 this morning. Denies cough, shortness of breath. Denies abdominal pain. He does have chills and bodyaches. No chest pain. Patient states he does not drink alcohol.. Patient states he is otherwise healthy before this morning. Nobody else is sick in the household. He has not had any sick contacts. Patient noted he could not hold anything down all day long but also states that he drank a Gatorade before coming in his stay down. [facility] Medical History Encounter for screening for malignant neoplasm of lung in current smoker with 30 pack year history or greater Stenosis of right carotid artery Insulin dependent diabetes mellitus History of non-ST elevation myocardial infarction (NSTEMI) (06/11/18) Emphysema lung Asthma Type 2 diabetes mellitus Arthritis Pancreatitis GERD (gastroesophageal reflux disease) Nicotine dependence Atherosclerosis of coronary artery of in[place]iat heart without angina pectoris Hyperlipidemia Essential (primary) hypertension Home Medications ?Medication ?Instructions ?Recorded ?Last Taken ?Type blood sugar diagnostic (FreeStyle #50 ea 04/02/21 Unknown Rx Test strips) blood-glucose meter (FreeStyle #1 ea 04/02/21 Unknown Rx System Kit) lancets 28 gauge (FreeStyle #50 ea 04/02/21 Unknown Rx Lancets) pen needle, diabetic 31 gauge x #100 ea 04/02/21 Unknown Rx 3/16 (1st Tier Unifine Pentips Plus) aspirin 81 mg chewable tablet 81 mg PO DAILY@0800 health 11/01/21 Unknown Rx maintenance #90 tabs fenofibrate micronized 134 mg 134 mg PO DAILY lowers cholesterol 11/01/21 Unknown Rx capsule #90 caps nitroglycerin 0.4 mg sublingual 0.4 mg sublingual Q5M PRN 04/24/22 Unknown Rx tablet Cardiac/Chest Pain #20 tabs alfuzosin 10 mg tablet,extended 10 mg PO DAILY 01/26/23 Unknown History release 24 hr albuterol sulfate 90 mcg/actuation 2 puff inhalation Q4H PRN PRN 02/18/23 Unknown Rx aerosol inhaler Wheezing ##1 mometasone-formoterol HFA 100 2 puff inhalation BID #13 grams 02/18/23 Unknown Rx mcg-5 mcg/actuation aerosol inhaler (Dulera) atorvastatin 80 mg tablet 80 mg PO QHS #90 tabs 04/15/23 Unknown Rx metformin 1,000 mg tablet 1,000 mg PO BID #180 tabs 04/15/23 Unknown Rx hydrocodone-acetaminophen 5-325mg 1 tab PO Q6H PRN PRN Pain 3 days 04/25/23 Unknown Rx 5mg-325mg #10 TABLETS buspirone 5 mg tablet 5 mg PO BID anxiety #180 tabs 06/26/23 Unknown Rx omeprazole 20 mg capsule,delayed See Rx Instructions .Route 06/26/23 Unknown Rx release .COMPLEX #90 caps Handicap placard #1 ea 07/22/23 Unknown Rx atenolol 50 mg tablet 50 mg PO DAILY #90 tabs 07/22/23 Unknown Rx dapagliflozin propanediol 10 mg 10 mg PO DAILY #90 tabs 07/22/23 Unknown Rx tablet (Farxiga) icosapent ethyl 1 gram capsule 2 g (2 x 1 gram) PO BID 30 days 07/22/23 Unknown Rx (Vascepa) #120 caps insulin glargine 100 unit/mL (3 20 unit (0.2 mL) subcut ONCE #15 mL 07/22/23 Unknown Rx mL) subcutaneous pen insulin lispro protamine-lispro 20 unit (0.2 mL) subcut BID #15 mL 07/22/23 Unknown Rx 100 unit/mL (50-50) subcutaneous pen (Humalog Mix 50-50 KwikPen) isosorbide mononitrate 30 mg See Rx Instructions .Route 07/22/23 Unknown Rx tablet,extended release 24 hr .COMPLEX #90 tabs losartan 25 mg tablet 25 mg PO DAILY #90 tabs 07/22/23 Unknown Rx evolocumab 140 mg/mL subcutaneous 140 mg subcut Q2W #2 mL 07/28/23 Unknown Rx pen injector (Wolf Bernal) ondansetron 4 mg disintegrating 4 mg PO Q8H PRN PRN Nausea #10 tabs 08/23/23 Unknown Rx tablet Allergy/AdvReac Type Severity Reaction Status Date / Time amoxicillin Allergy Angioedema Verified 08/18/23 16:22 lindane Allergy Rash Verified 08/18/23 16:22 Family History Father Asthma Alcoholism Arthritis Heart disease Hypertension High cholesterol CVA (cerebral vascular accident) Lung cancer Grandfather Myocardial infarction Surgical History History of hernia repair History of carotid endarterectomy (01/06/14) H/O coronary artery bypass surgery (2006) History of left heart catheterization (06/11/18) Social History Smoking Status: Current every day smoker tobacco type: cigarettes Tobacco: How many years used: 45 Electronic Cigarette Use: not used second hand exposure: Yes quit status: considering quitting alcohol intake: never substance use type: does not use caffeine: Yes Type: coffee Number of servings: 5 what type of physical activity do you participate in: none ROS ROS ED Constitutional Constitutional ED: Denies chills, fever(s) or sweats Eyes Eyes: Denies blurry vision or change in vision ENT ENT ED: Denies ear pain or sore throat Cardiovascular Cardiovascular: Denies chest pain, palpitations or racing heartbeat Respiratory/Chest Respiratory/Chest: Denies cough, dyspnea or sputum Gastrointestinal Gastrointestinal: Reports diarrhea, nausea and vomiting; Denies abdominal pain or constipation Genitourinary Genitourinary ED: Denies dysuria, hematuria or urinary frequency Musculoskeletal Musculoskeletal: Denies arthralgias, myalgias or neck pain Integumentary Denies abscess, Abrasions or rash Neurologic Neurologic: Denies headache(s), paresthesias or weakness Psychiatric Psychiatric: Denies anxiety, depression, suicidal ideation or suicidal thoughts Endocrine Endocrinology: Denies polydipsia or polyuria EXAM Physical Exam Const Vital Signs: 08/23/23 18:23 Temperature 97.4 F L Temperature Source Temporal Pulse Rate 65 Respiratory Rate 16 Blood Pressure 121/66 H Blood Pressure Mean 84 Pulse Ox 98 Oxygen Delivery Method Room Air Positive well nourished General Appearance ED: Negative for pallor HEENT Reports TM's clear and moist mucous membranes Tympanic Membrane ED: Yes TM's clear Eyes PERRL Resp normal respiratory effort and clear to auscultation bilaterally Auscultation: Negative for rales, rhonchi or wheezes Cardio regular rate and regular rhythm GI non-tender, non-distended and no masses Neuro CN's II-XII intact bilaterally Sensorium / Orientation: alert Motor Exam: strength 5/5 throughout Psych mental status grossly normal and thought process normal Skin no wounds General Skin Exam: Negative for jaundice or pallor MDM MDM MDM Narrative Medical decision making narrative: 63-year-old male presenting with nausea, vomiting, diarrhea. He was able to hold onto Gatorade for coming in his thoughts and mild nausea. He denies any chest pain, abdominal pain. He does state he had a fever of 101 ?F this morning but he has not take anything for fever and is afebrile here. Offered patient lab work and fluids versus oral Zofran and p.o. challenge and he opts to try Zofran since he is already held down Fluids. He was offered viral testing but declines. On reevaluation patient is eating a bag of chips and drink some water. He feels much better. Given prescription of Zofran for home. Impression: 1. Nausea/vomiting 2. Diarrhea Lab Data Attestation: I reviewed the patient's lab results. Discharge Plan Triage Chief Complaint: Nausea/Vomiting/Diarrhea ED Provider: Paco Duran Dx/Rx/DC Orders Instructions: ED Vomit Diarrhea Nonspec Adult Prescriptions: New ondansetron 4 mg tablet,disintegrating 4 mg PO Q8H PRN PRN (Reason: Nausea) Qty: 10 0RF No Action nitroglycerin 0.4 mg tablet, sublingual 0.4 mg Sublingual Q5M PRN (Reason: Cardiac/Chest Pain) Qty: 20 1RF alfuzosin 10 mg tablet extended release 24 hr 10 mg PO DAILY Rx Instructions: administer after the same meal each day atorvastatin 80 mg tablet 80 mg PO QHS Qty: 90 3RF metformin 1,000 mg tablet 1,000 mg PO BID Qty: 180 1RF insulin glargine 100 unit/mL (3 mL) insulin pen 20 unit subcut ONCE Qty: 15 3RF Rx Instructions: at Bedtime atenolol 50 mg tablet 50 mg PO DAILY Qty: 90 3RF Farxiga 10 mg tablet 10 mg PO DAILY Qty: 90 1RF icosapent ethyl [Vascepa] 1 gram capsule 2 g PO BID 30 Days Qty: 120 12RF isosorbide mononitrate 30 mg tablet extended release 24 hr See Rx Instructions .ROUTE .COMPLEX Qty: 90 3RF Dose Instruction: TAKE 1 TABLET BY MOUTH EVERY DAY Rx Instructions: TAKE 1 TABLET BY MOUTH EVERY DAY losartan 25 mg tablet 25 mg PO DAILY Qty: 90 3RF Humalog Mix 50-50 KwikPen 100 unit/mL (50-50) insulin pen 20 unit SC BID Qty: 15 4RF Rx Instructions: 9 pm: eat a meal, take 20 units insulin 1 am: eat a meal during work break 8 am: eat a meal take 20 units insulin (DME) Handicap placard See Rx Instructions .Route .MEDSUPPLY Qty: 1 0RF Rx Instructions: Due to COPD, unable to walk 50 yards without assistance, duration 5 years. Repatha SureClick 140 mg/mL pen injector 140 mg subcut Q2W Qty: 2 3RF hydrocodone-acetaminophen 5-325 mg tablet 1 tab PO Q6H PRN PRN (Reason: Pain) 3 Days Qty: 10 0RF (DME) FreeStyle Test Strip See Rx Instructions .ROUTE .MEDSUPPLY Qty: 50 11RF Rx Instructions: check blood glucose daily (DME) blood-glucose meter [FreeStyle System Kit] Kit See Rx Instructions .ROUTE .MEDSUPPLY Qty: 1 0RF Rx Instructions: check blood glucose daily for type 2 DM (DME) lancets [FreeStyle Lancets] 28 gauge misc See Rx Instructions .ROUTE .MEDSUPPLY Qty: 50 11RF Rx Instructions: Check blood glucose daily for type 2 DM (DME) pen needle, diabetic [1st Tier Unifine Pentips Plus] 31 gauge x 3/16 needle See Rx Instructions .ROUTE .MEDSUPPLY Qty: 100 1RF Rx Instructions: use with lantus nightly aspirin 81 mg tablet,chewable 81 mg PO DAILY@0800 Qty: 90 3RF fenofibrate micronized 134 mg capsule 134 mg PO DAILY Qty: 90 3RF albuterol sulfate 90 mcg/actuation HFA aerosol inhaler 2 puff inhalation Q4H PRN PRN (Reason: Wheezing) Qty: 1 3RF Dulera 100-5 mcg/actuation HFA aerosol inhaler 2 puff inhalation BID Qty: 13 0RF buspirone 5 mg tablet 5 mg PO BID Qty: 180 1RF omeprazole 20 mg capsule,delayed release(DR/EC) See Rx Instructions .ROUTE .COMPLEX Qty: 90 1RF Dose Instruction: TAKE 1 CAPSULE BY MOUTH DAILY Rx Instructions: TAKE 1 CAPSULE BY MOUTH DAILY Primary Care Provider: Ant Nuñez Referrals: Ant Nuñez, [Primary Care Provider] - Print Language: Syriac Disposition Disposition: Home, Self Care
[2023-08-23] MEDS: Ondansetron ODT 4 MG Tablet PO (18:58)
[2023-08-23 20:22] VITALS: BP 101/54; PULSE 72; RESP 18; O2SAT 93
[2023-08-23 20:26] VITALS: BP 101/54; PULSE 69; RESP 18; TEMP 36.4; O2SAT 93
== END 2023-08-23 20:28 | disposition home or self-care (01) ==
PROVIDERS: Emergency Provider Student in an Organized Health Care Education/Training Program; PCP Family Medicine; Visit Provider Student in an Organized Health Care Education/Training Program
DX: R11.2 Nausea with vomiting, unspecified (principal); Z79.4 Long term (current) use of insulin; E11.9 Type 2 diabetes mellitus without complications; F17.210 Nicotine dependence, cigarettes, uncomplicated; R19.7 Diarrhea, unspecified; I25.2 Old myocardial infarction; E78.5 Hyperlipidemia, unspecified; I10 Essential (primary) hypertension; Z79.82 Long term (current) use of aspirin; Z79.899 Other long term (current) drug therapy; Z79.84 Long term (current) use of oral hypoglycemic drugs; I25.10 Atherosclerotic heart disease of native coronary artery without angina pectoris; J45.909 Unspecified asthma, uncomplicated; Z79.51 Long term (current) use of inhaled steroids; K21.9 Gastro-esophageal reflux disease without esophagitis
CPT/HCPCS: 99282

== ENCOUNTER → 2023-09-01 | Outpatient (CLI) | payer MEDICAID, SELFPAY ==
--- NOTE | 2023-09-01 13:38 | ART_ITS ---
Version 2 Reason For Study: BLE Claudication Procedure A bilateral lower extremity continuous wave Doppler with analog waveform analysis,segmental pressures,and ankle brachial indexes with exercise. Left Segmental Pressures Left brachial= 121mmHg. Left calf = 137mmHg. Left posterior tibial artery = 99mmHg. Left dorsalis pedis artery = 87mmHg. Left digit = 68 mmHg. The left posterior tibial artery waveforms are biphasic. The left dorsalis pedis waveforms are monophasic. Right Segmental Pressures Right brachial= 116mmHg. Right thigh = 134mmHg. Right calf = 91mmHg. Right posterior tibial artery = 88mmHg. Right dorsalis pedis artery = 78mmHg. Right digit = 45 mmHg. The right posterior tibial artery waveforms are biphasic. The right dorsalis pedis waveforms are monophasic. Indices The right ankle brachial index by the posterior tibial artery is 0.73. The right ankle brachial index by the dorsalis pedis is 0.64. The right ankle brachial index by the posterior tibial artery post exercise is 0.52. The right digital-brachial index is 0.37. The left ankle brachial index by the posterior tibial artery is 0.82. The left ankle brachial index by the dorsalis pedis is 0.72. The left posterior tibial artery index post exercise is 0.89. The left digital-brachial index is 0.56. VL/Lower Ext Art Exam w/ Exercise Interpretation Summary Right SUZY 0.73, moderate arterial insufficiency. Doppler/PVR waveforms and segm ental pressures reveal distal SFA/popliteal disease. Right lower extremity with no change in response to exercise and post exercise SUZY in the moderate category. Left SUZY 0.82, moderate arterial insufficiency. Doppler/PVR waveforms and segme ntal pressures reveal infrapopliteal disease. Left lower extremity with no change in response to exercise and post exercise A BI in the moderate category. Ordering Physician: Lubna Manley Referring Physician: Rebel Nuñez M.D. Performed By: Yonas Lock RVT and Student
--- NOTE | 2023-09-01 13:56 | CT_ITS ---
ACR Level 3 findings have been noted. An addendum which confirms receipt of the report will follow. EXAM: CT ANGIOGRAPHY NECK WITH INTRAVENOUS CONTRAST CLINICAL INDICATION: Right Carotid stenosis -- reduced velocity and high resistance waveforms TECHNIQUE: Routine carotid CT angiography protocol was performed with intravenous contrast. NASCET criteria using the distal ICAs for comparison were used for evaluation of stenoses. This CT exam was performed using one or more of the following dose reduction techniques: automated exposure control, adjustment of the mA and/or kV according to patient size, and/or use of iterative reconstruction technique. MIP reconstructed images were created and reviewed. CONTRAST: IV 100mL [id number] COMPARISON: CT soft tissue neck, 02/14/2020 FINDINGS: VASCULATURE: RIGHT COMMON CAROTID ARTERY: Moderate atheroma of the right common carotid artery with mild diffuse stenosis. No dissection. RIGHT INTERNAL CAROTID ARTERY: Atherosclerosis of the right carotid bifurcation extending into the carotid bulb with occlusion of the proximal right internal carotid artery. This is reconstituted in the supraclinoid segment. Arteriosclerosis of the petrous, precavernous, cavernous, and supracavernous right internal carotid artery. RIGHT EXTERNAL CAROTID ARTERY: Atherosclerotic stenosis of the origin of the right external carotid artery. RIGHT VERTEBRAL ARTERY: Severe stenosis of the origin of the right vertebral artery, V1 segment. Arteriosclerosis of the V4 intradural segment of the right vertebral artery with mild stenosis. No dissection. LEFT COMMON CAROTID ARTERY: Mild stenosis throughout the course of the left common carotid artery secondary to scattered atheroma. No dissection. LEFT INTERNAL CAROTID ARTERY: Atherosclerosis of the left carotid bifurcation and carotid bulb with between 50 and 60% stenosis of the proximal left internal carotid artery by NASCET criteria. Arteriosclerosis of the cavernous and supracavernous left internal carotid artery. No dissection. LEFT EXTERNAL CAROTID ARTERY: Atherosclerosis of the margin of the left external carotid artery resulting in moderate stenosis. LEFT VERTEBRAL ARTERY: No significant abnormality. No occlusion or significant stenosis. No dissection. BRACHIOCEPHALIC AND SUBCLAVIAN ARTERIES: Atherosclerosis of the origin of the left subclavian artery with at least moderate stenosis. Mild stenosis of the origin of the right subclavian artery with mild atheroma. AORTA: Atherosclerosis of the aorta without evidence of a dissection. Atherosclerosis of the brachiocephalic trunk with mild stenosis at the arch and. NECK: BONES/JOINTS: Median sternotomy. Degenerative changes throughout the spine. No acute fracture. SOFT TISSUES: No significant abnormality. DENTAL: Multiple absent teeth, dental caries, periapical lucencies. THYROID: Multiple subcentimeter thyroid nodules are present for which no follow-up is indicated. LUNG APICES: Centrilobular emphysema. Atelectasis of the right maxillary sinus without significant opacification. CAROTID STENOSIS REFERENCE USING NASCET CRITERIA: % ICA stenosis = (1 - narrowest ICA diameter/diameter of distal cervical ICA) x 100. Mild - <50% stenosis. Moderate - 50-69% stenosis. Severe - 70-94% stenosis. Near occlusion - 95-99% stenosis. Occluded - 100% stenosis. CT/CTA Neck W/WO Contrast IMPRESSION: 1. Atherosclerosis of the right carotid bifurcation extending into the carotid bulb with occlusion of the proximal right internal carotid artery. This is reconstituted in the supraclinoid segment. 2. Severe stenosis of the origin of the right vertebral artery, V1 segment. 3. Atherosclerosis of the subclavian and brachiocephalic arteries with mild to moderate stenosis as above. 4. Atherosclerosis of the left carotid bifurcation and carotid bulb with between 50 and 60% stenosis of the proximal left internal carotid artery by NASCET criteria. 5. Centrilobular emphysema. NOTE: Emphysema on CT is an independent risk factor for lung cancer. Consider low dose CT for lung cancer screening between the ages of 50 and 77. Electronically Signed: Riki Stubbs DO at 23:06 EDT ,
== END | disposition home or self-care (01) ==
PROVIDERS: PCP Family Medicine; Referring Provider Physician Assistant; Visit Provider Physician Assistant
DX: I73.9 Peripheral vascular disease, unspecified (principal)
CPT/HCPCS: 70498; 93924; Q9967

== ENCOUNTER → 2023-09-21 | Outpatient (CLI) | payer MEDICAID, SELFPAY ==
[2023-09-21 19:43] LABS: AST(SGOT) 28 U/L (15-37); Alanine Aminotransfer ALT/SGPT 37 U/L (16-61); Albumin, Serum 3.8 g/dL (3.2-5.0); Alkaline Phosphatase 65 U/L (45-117); Bilirubin, Direct 0.15 mg/dL (0.00-0.30); Cholesterol 253 mg/dL (200); Globulin 4.1 g/dL (2.2-4.2); High Density Lipoprotein 36 mg/dL; Protein, Total 7.9 g/dL (6.4-8.2); Triglycerides 470 mg/dL
== END | disposition home or self-care (01) ==
LOC: LAB 14:32
PROVIDERS: PCP Family Medicine; Referring Provider Nurse Practitioner Family; Visit Provider Nurse Practitioner Family
DX: E78.00 Pure hypercholesterolemia, unspecified (principal); I25.10 Atherosclerotic heart disease of native coronary artery without angina pectoris
CPT/HCPCS: 36415; 80061; 80076; 83721

== ENCOUNTER → 2023-11-13 | Outpatient (CLI) | payer MEDICAID, SELFPAY ==
--- NOTE | 2023-11-13 10:03 | VDLE_ITS ---
Reason For Study: Right leg pain RIGHT LEFT GSV is normal. CFV is compressible, spontaneous, phasic, CFV is compressible, spontaneous, phasic, competent, and demonstrates normal competent and demonstrates normal augmentation. augmentation. FV is compressible, spontaneous, phasic, competent and demonstrates normal augmentation. POP V is compressible, spontaneous, phasic, competent and demonstrates normal augmentation. T/P Trunk is compressible. PTV is compressible. RT PerV is compressible. Procedure This is a venous duplex using B-mode, color flow and spectral Doppler. Exam performed in department. A preliminary report was called and/or faxed to Dr. Nuñez. VL/Venous Duplex US, Unilateral Interpretation Summary Deep veins of the right lower extremity are patent and compressible segmentally . There is no evidence of right lower extremity deep vein thrombosis. The right great sapheno us vein appears patent and compressible segmentally. Ordering Physician: Ant Nuñez Referring Physician: Ant Nuñez Performed By: Shyann Hernández RVT
== END | disposition home or self-care (01) ==
LOC: CVS 10:02
PROVIDERS: PCP Family Medicine; Referring Provider Family Medicine; Visit Provider Family Medicine
DX: M79.605 Pain in left leg (principal)
CPT/HCPCS: 93971

== ENCOUNTER → 2024-02-23 | Outpatient (CLI) | payer MEDICAID, SELFPAY ==
[2024-02-23 11:43] LABS: AST(SGOT) 27 U/L (15-37); Alanine Aminotransfer ALT/SGPT 37 U/L (16-61); Albumin, Serum 3.8 g/dL (3.2-5.0); Alkaline Phosphatase 69 U/L (45-117); Bilirubin, Direct 0.16 mg/dL (0.00-0.30); Cholesterol 238 mg/dL (200); High Density Lipoprotein 38 mg/dL; Protein, Total 7.8 g/dL (6.4-8.2); Triglycerides 607 mg/dL
== END | disposition home or self-care (01) ==
LOC: LAB 10:04
PROVIDERS: PCP Family Medicine; Referring Provider Nurse Practitioner Gerontology; Visit Provider Nurse Practitioner Gerontology
DX: E78.2 Mixed hyperlipidemia (principal)
CPT/HCPCS: 36415; 80061; 80076

== ENCOUNTER → 2024-03-09 | Outpatient (CLI) | payer MEDICAID, SELFPAY ==
--- NOTE | 2024-03-09 09:17 | ART_ITS ---
Reason For Study: PVD Procedure A bilateral lower extremity continuous wave Doppler with analog waveform analysis,segmental pressures,and ankle brachial indexes without exercise. Left Segmental Pressures Left brachial= 115mmHg. Left thigh = 117mmHg. Left calf = 113mmHg. Left posterior tibial artery = 93mmHg. Left dorsalis pedis artery = 77mmHg. Left digit = 52 mmHg. The left dorsalis pedis waveforms are triphasic. The left posterior tibial artery waveforms are triphasic. Right Segmental Pressures Right brachial= 105mmHg. Right thigh = 81mmHg. Right calf = 63mmHg. Right posterior tibial artery = 47mmHg. The right posterior tibial artery waveforms are monophasic. Absent pulses in Rt doralis pedis artery and Rt digit. Indices The right ankle brachial index by the posterior tibial artery is 0.41. The left ankle brachial index by the dorsalis pedis is 0.67. The left ankle brachial index by the posterior tibial artery is 0.81. The left digital-brachial index is 0.45. . Preliminary report given to Fallon HUGHES at Dr. Flowers's office. VL/Lower Ext Art Exam w/o Exercis Interpretation Summary Right SUZY 0.41, severe arterial insufficiency. Doppler/PVR waveforms and segmen hua pressures reveal [id number] femoral, distal SFA/popliteal disease. Left SUZY 0.81, moderate arterial insufficiency. Doppler/PVR waveforms and segme ntal pressures reveal infrapopliteal disease Ordering Physician: Jose Small Referring Physician: Rebel Nuñez M.D. Performed By: Shyann Hernández RVT and Student
== END | disposition home or self-care (01) ==
LOC: CVS 09:12
PROVIDERS: PCP Family Medicine; Referring Provider Student in an Organized Health Care Education/Training Program; Visit Provider Student in an Organized Health Care Education/Training Program
DX: I73.89 Other specified peripheral vascular diseases (principal); L97.512 Non-pressure chronic ulcer of other part of right foot with fat layer exposed; M79.674 Pain in right toe(s)
CPT/HCPCS: 93923

== ENCOUNTER → 2024-03-29 | Outpatient (CLI) | payer MEDICAID, SELFPAY ==
--- NOTE | 2024-03-29 13:25 | CT_ITS ---
STUDY: CTA OF THE ABDOMINAL AORTA AND BILATERAL LOWER EXTREMITIES REASON FOR EXAM: Male, 64 years old. RLE atherosclerosis with ulceration RADIATION DOSAGE (If Supplied By Facility): CTDIvol = ( 9.48 ) mGy, DLP = ( 1392.14 ) mGycm TECHNIQUE: Axial CT angiography multi-detector data acquisition was obtained from the lung bases to the feet following intravenous administration of 100mL Isovue-370. Axial images and MIP images were reconstructed from the axial data set. Post-processing of the angiographic images was performed, with multiplanar reformation and 3D reconstruction. Individualized dose optimization techniques were used for this CT. The protocol utilizes one or more of the following dose reduction techniques: automated exposure control, adjustment of mA and/or kV according to patient size, and/or use of iterative reconstruction technique. TECHNICAL QUALITY: Less than optimal. COMPARISON: None. Descriptors of Narrowing: None (0%) Mild (< 50%) Moderate (50-70%) Severe (70-90%) Subtotal/Total Occlusion (90-100%) Non-Evaluable (technically non-diagnostic FINDINGS: Abdominal aorta: Multiple calcified plaques. No demonstrated narrowing and no aneurysmal dilatation. Celiac and superior mesenteric arteries: High-grade stenosis at the origins poststenotic dilatation. Inferior mesenteric artery: High-grade stenosis of the origin with poststenotic dilatation. Right renal artery(arteries): Mild stenosis at the origin due to calcified plaque. Left renal artery(arteries): Mild stenosis of the origin due to calcified plaque. Right common iliac artery: Aneurysmal dilatation with a diameter of 2.5 cm. It contains noncalcified plaques and calcified plaques, Right external iliac artery: Calcified plaques without significant stenosis. Right internal iliac artery: Segmental high-grade stenosis due to calcified and noncalcified plaques. Left common iliac artery: Multiple calcified plaques without significant stenosis. Left external iliac artery: Calcified plaques without significant stenosis. Left internal iliac artery: Segmental high-grade stenosis. RIGHT LOWER EXTREMITY Right common femoral artery: High-grade stenosis due to noncalcified plaques and calcified plaques. Right profundus femoris: High-grade stenosis of the origin. Right superficial femoral: Segmental high-grade stenosis at the junction of middle third and distal third of the right superficial femoral artery. Right popliteal artery: Greater than 50% stenosis at the mid segment. Right tibioperoneal trunk: High-grade stenosis. Right anterior tibial artery: Occluded at the junction of the middle third and distal third of the tibial shaft level. Right posterior tibial artery: Calcified plaques proximally and distally without significant stenosis. Right peroneal artery: Calcified plaques proximally without significant stenosis. LEFT LOWER EXTREMITY Left common femoral artery: Calcified and noncalcified plaques without significant stenosis. Left profundus femoris: Greater than 50% stenosis. Left superficial femoral: Calcified and noncalcified plaques without significant stenosis. Left popliteal artery: Greater than 50% stenosis due to prominent noncalcified plaque. Left tibioperoneal trunk: Calcified and noncalcified plaques without significant stenosis. Left anterior tibial artery: Occluded. Left posterior tibial artery: Calcified plaques distally without significant stenosis. Left peroneal artery: Greater than 50% stenosis proximally. The rest of the left peroneal artery show no significant stenosis. CT/CTA Abd w/Runoff W/WO Contrast IMPRESSION: 1. Multiple calcified and noncalcified plaques without significant stenosis or aneurysmal dilatation of the abdominal aorta. 2. Greater than 70% stenosis at the origins of the celiac artery and SMA with poststenotic dilatation. 3. 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 4. Segmental high-grade stenosis of the right internal iliac artery. 5. High-grade stenosis of right common femoral artery due to noncalcified plaques and calcified plaques, high-grade stenosis of the right profunda femoris, segmental high-grade stenosis at the junction of middle third and distal third of the right superficial femoral artery. 6. Greater than 50% stenosis of the right popliteal artery exhibits segment. High-grade stenosis of the right tibioperoneal trunk and occluded right anterior tibial artery of the junction of middle third and distal third of the tibial shaft level. 7. Greater than 50% stenosis of the left profunda femoris and greater than 50% stenosis of the left popliteal artery due to prominent noncalcified plaque. 8. Occluded left anterior tibial artery. Greater than 50% stenosis of the proximal left peroneal artery. The rest of the left peroneal artery is widely patent. No significant stenosis of the left posterior tibial artery. 9. Small left inguinal hernia containing a small protrusions of the colon without obstruction, strangulation or ischemia. 10. Mild diffuse hepatic steatosis. 11. No acute abnormality in the abdomen and pelvis. Electronically Signed: Prasad Hinton MD at 8:51 EST ,
[2024-03-29 14:00] LABS: CREATININE FINGERSTICK < 1.0 mg/dL (0.70-1.30); EGFR FINGERSTICK > 60.0000 mL/min (>60)
== END | disposition home or self-care (01) ==
LOC: CT 13:24
PROVIDERS: PCP Family Medicine; Referring Provider Physician Assistant; Visit Provider Physician Assistant
DX: I73.9 Peripheral vascular disease, unspecified (principal); R23.4 Changes in skin texture
CPT/HCPCS: 75635; Q9967

== ENCOUNTER 2024-04-20 06:47 | Day surgery (SDC) | payer MEDICAID, SELFPAY ==
[2024-04-19 08:51] VITALS: BMI 27.8
[2024-04-20 07:04] LABS: Hematocrit 52.2 % (40-54); Hemoglobin 17.8 g/dL (13.0-16.5); Mean Corp Hgb Conc 34.1 g/dL (32-36); Mean Corpuscular Hgb 31.7 pg (27.0-32.0); Mean Corpuscular Volume 92.9 fL (80-94); Mean Platelet Vol. 9.5 fl (6.2-12.0); Platelet Count 271 K/mm3 (150-450); RBC Distribution Width CV 12.9 % (11.6-14.6); RBC Distribution Width SD 43.8 fl (35.1-43.9); Red Blood Count 5.62 M/mm3 (4.6-6.2); White Blood Count 8.5 K/mm3 (4.4-11.0)
[2024-04-20 07:18] LABS: Anion Gap 6 (5-15); BUN 16 mg/dL (7-18); BUN/Creat Ratio 15.1 RATIO (10-20); Calcium,Total 9.3 mg/dL (8.5-10.1); Chloride 103 mmol/L (98-107); Creatinine, Serum 1.06 mg/dL (0.70-1.30); EST Glomerular Filtration Rate 75 mL/min (>60); Est Glom Filt Rate - Afr Amer 90 mL/min (>60); Estimated Creatinine Clearance 78.67 ml/min; Glucose 228 mg/dL (74-106); Potassium 4.3 mmol/L (3.5-5.1); Sodium Level 135 mmol/L (136-145)
[2024-04-20 11:27] LABS: ACT Activated Clotting Time 222 sec (74-137)
--- NOTE | 2024-04-20 12:55 | OP.PCM_ITS ---
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 He is diabetic and has arterial noninvasive studies which reveal significant arterial insufficiency. He also suffers from right calf claudication that is lifestyle limiting. He presents now for angiogram with possible intervention. Description of procedure: Upon obtaining form consent and verification correct patient procedure site the patient was taken to the [facility] he was positioned prepped and draped in usual sterile fashion. Timeouts performed conscious sedation administered Versed and fentanyl. Skin overlying the left common femoral artery was anesthetized 1% lidocaine the vessel accessed under ultrasound guidance with a micropuncture needle wire. This was then exchanged for micropuncture sheath through which hand-injection iliofemoral angiogram was performed revealing satisfactory positioning with no extravasation or dissection. Through the micropuncture sheath a Bentson wire was advanced into the abdominal aorta and the micropuncture sheath exchanged for a short 6 [place] sheath. Through the 6 [place] sheath and Omni Flush catheter was advanced into the aorta and a digital subtraction aortogram pelvic angiograms performed. We then navigated into the contralateral iliac system with the Omni Flush and glide advantage wire advancing our catheter into the distal external artery. From this position sequential subtraction angiography the right lower extremity was performed. The glide advantage was then readvanced to the catheter and directed into the superficial femoral artery. The Omni Flush catheter and short 6 [place] sheath then exchanged for a 6 [place] 45 cm [employer] catapult sheath advanced over the wire and positioned in the proximal superficial femoral artery. The patient was in heparinized allowed to circulate for 3 minutes. Through the 6 [place] sheath utilizing an angled quick cross catheter and a command 18 wire we engaged the proximal cap of the total occlusion and were able to traverse approximately half of the lesion at which point no further progress could be made. The 035 quick cross was then exchanged for a straight 018 quick cross which was advanced further into the lesion providing further support for the command wire to continue traversing the lesion and what appeared to be true lumen throughout. The catheter was then advanced into the patent vessel beyond the lesion and hand-injection subtraction angiography confirmed position within true lumen with no extravasation or dissection. A [place] wire was then advanced to the catheter and positioned in the distal popliteal artery. The quick cross cath was then withdrawn and intravascular ultrasound probe advanced over the wire and recording obtained advancing through the superficial femoral artery and popliteal artery proximally. We were able to cross the proximal half of the lesion at which point the catheter would not advance no further. We were within true lumen for this segment of the lesion so the intravascular ultrasound probe was withdrawn and a [place] atherectomy device brought onto the field prep for manufactures instructions. This was then advanced over the wire and engaged for multiple passes in the proximal half of the lesion including the segment where the catheter would not traverse. The venous was then withdrawn and the intravascular ultrasound probe readvanced this time able to fully traverse the lesion and advanced into the distal popliteal patent vessel. Recorded pullback was performed which confirmed that we are within true lumen for the entirety of the lesion. The ultrasound probe was then withdrawn and the [place] device readvanced and engaged for multiple passes across the distal half of the lesion. The atherectomy device was then withdrawn and an [employer] Astrid angioplasty balloon 6 x 120 was advanced for multiple inflations across the lesion. This was then withdrawn and hand-injection subtraction angiography performed revealed satisfactory lesion response with no extravasation or dissection and brisk contrast transit. A [employer] Williamson paclitaxel coated angioplasty balloon 6 x 150 was then advanced and inflated to nominal for 3 minutes covering the entirety of the lesion. This was then deflated withdrawn and completion angiography revealed satisfactory lesion response with no residual stenosis, no extravasation or dissection. There was improved visualization of the runoff which revealed stenosis within the tibioperoneal trunk that we did not feel require treatment at this time. The posterior tibial artery was the dominant runoff to the foot a very large caliber vessel which filled the vessels of the hindfoot and plantar aspect and provided the majority of the inflow to the pedal arch. The long 6 [place] sheath were then exchanged for a short 6 [place] sheath and a minx closure device deployed followed by 5 minutes of manual pressure with satisfactory stasis noted. The patient was then taken to the recovery area for bedrest prior to discharge to home. Surgical Findings: Abdominal aorta normal caliber with moderate diffuse calcified atherosclerosis. Left common and external iliac arteries patent with normal caliber with diffuse atherosclerosis but no significant stenosis. Proximal left common femoral a rtery with greater than 50% stenosis just above the access site. Right common iliac artery aneurysmal to 2.5 cm with moderate calcification. Right external iliac artery patent with diffuse calcification but no stenosis. Right common femoral artery with focal significant stenosis and focal dissection which appears to be chronic. Superficial femoral artery with moderate atherosclerosis throughout with mild stenosis and minimal calcification. Right popliteal artery with P1 occlusion with moderate focal calcification in the mid occlusion with reconstitution of the P2 segment which had minimal atherosclerosis and no stenosis. Tibioperoneal trunk patent with moderate atherosclerosis and less than 50% stenosis lesions. Posterior tibial artery large caliber vessel dominant runoff to the foot with no significant atherosclerosis or stenosis. Anterior tibial artery occluded at its origin reconstitution in the mid lower leg poorly filled small caliber vessel beyond. Peroneal artery atherosclerosis proximally but otherwise large caliber vessel with minimal atherosclerosis distally to the ankle. Complications Complications: No
== END 2024-04-20 13:00 | disposition home or self-care (01) ==
PROVIDERS: PCP Family Medicine; Referring Provider Surgery Trauma Surgery; Visit Provider Surgery Trauma Surgery
DX: I70.239 Atherosclerosis of native arteries of right leg with ulceration of unspecified site (principal); E11.9 Type 2 diabetes mellitus without complications; Z79.4 Long term (current) use of insulin; I70.0 Atherosclerosis of aorta; I72.3 Aneurysm of iliac artery; F17.210 Nicotine dependence, cigarettes, uncomplicated; Z95.1 Presence of aortocoronary bypass graft; I25.2 Old myocardial infarction; I10 Essential (primary) hypertension; I25.10 Atherosclerotic heart disease of native coronary artery without angina pectoris; K21.9 Gastro-esophageal reflux disease without esophagitis; E78.5 Hyperlipidemia, unspecified
CPT/HCPCS: 36200; 36245; 36415; 37225; 37252; 75625; 75710; 76937; 80048; 85027; 85347; 99152; 99153; C1724; C1753; C1760; C1769; C1887; C1894; C2623; Q9967

== ENCOUNTER → 2024-05-09 | Outpatient (CLI) | payer MEDICAID, SELFPAY ==
--- NOTE | 2024-05-09 12:58 | ECHOCS_ITS ---
Reason For Study: MURMUR Procedure This was a 2D Doppler, Color Flow transthoracic echocardiogram. The study was technically difficult. Contrast injection was performed. Exam performed in department. Left Ventricle Normal LV size. Left ventricular systolic function is normal. The left ventricular ejection fraction is 45 %. There are regional wall motion abnormalities as specified. Right Ventricle Normal RV size. Normal systolic function. Atria Normal left atrium. Normal right atrium. Mitral Valve Normal mitral valve. Tricuspid Valve Normal tricuspid valve. Aortic Valve Trisinus/trileaflet aortic valve. Mild focal aortic valve calcification. Pulmonic Valve Normal pulmonic valve. Great Vessels Normal aortic root. The pulmonary artery is normal size. Inferior vena cava collapse with respiration. Pericardium/Pleural No pericardial effusion. Medication 22 gauge I.V. with prn adaptor inserted into left arm. Diluted definity 1.5ml given slow IV push to enhance endocardial definition. MMode/2D Measurements & Calculations LVIDd: 4.4 cm IVSd: 1.2 cm LVOT diam: 2.0 cm LVIDs: 3.5 cm LVPWd: 1.2 cm FS: 20.0 % LVOT area: 3.0 cm2 _ Ao root diam: 3.1 cm LAV(MOD-bp): 24.7 ml LVAd ap4: 37.9 cm2 LAV(MOD-bp) Indexed: 12.0 ml/m2 LVLd ap4: 9.4 cm LAV(MOD-sp2): 28.5 ml EDV(MOD- sp4): 123.7 ml LAV(MOD-sp4): 16.6 ml EDV(sp4- el): 129.2 ml LVAs ap4: 26.8 cm2 LVLs ap4: 8.9 cm ESV(MOD- sp4): 66.0 ml ESV(sp4- el): 68.7 ml EF(MOD- sp4): 46.6 % EF(sp4- el): 46.8 % _ SV(MOD-sp4): 57.7 ml SV(sp4-el): 60.4 ml LA A4 area: 7.9 cm2 SI(MOD-sp4): 28.0 ml/m2 _ LA dimension(2D): 4.2 cm RA A4 area: 7.9 cm2 Time Measurements MV dec time: 0.20 sec Doppler Measurements & Calculations MV E max dylan: 75.1 cm/sec Lat Peak E' Dylan: 6.7 cm/sec Med Peak E' Dylan: 5.2 cm/sec MV A max dylan: 69.2 cm/sec E/E' lat: 11.2 E/E' med: 14.5 MV E/A: 1.1 _ MV V2 max: 80.8 cm/sec MV dec slope: 393.1 cm/sec2 Ao V2 max: 273.3 cm/sec MV max P.6 mmHg Ao max P.1 mmHg MV V2 mean: 53.3 cm/sec Ao V2 mean: 212.4 cm/sec MV mean P.2 mmHg Ao mean P.8 mmHg MV V2 VTI: 22.4 cm Ao V2 VTI: 62.4 cm MVA(VTI): 2.2 cm2 AV (velocity ratio): 0.27 NEREYDA(I,D): 0.81 cm2 NEREYDA(V,D): 0.95 cm2 _ LV V1 max: 86.4 cm/sec SV(LVOT): 50.3 ml PA V2 max: 96.5 cm/sec LV V1 max P.0 mmHg PA V2 mean: 62.3 cm/sec LV V1 mean P.3 mmHg LV V1 mean: 50.7 cm/sec LV V1 VTI: 16.8 cm ECHO/Echo Complete W/ Contrast Interpretation Summary Normal LV size. Left ventricular systolic function is normal. The left ventricular ejection fraction is 45 %. Contrast injection was performed. Compared to previous study, the left ventricu lar systolic function has worsened.. Ordering Physician: Magaly Abdi Referring Physician: Magaly Abdi Performed By: Lyn Hughes RCS
== END | disposition home or self-care (01) ==
LOC: CVS 12:55
PROVIDERS: PCP Family Medicine; Referring Provider Physician Assistant Medical; Visit Provider Physician Assistant Medical
DX: R01.1 Cardiac murmur, unspecified (principal)
CPT/HCPCS: 93306; Q9957; A4216; C8929

== ENCOUNTER 2024-05-21 17:25 | Emergency (ER) | payer MEDICAID, SELFPAY ==
[2024-05-21 17:26] VITALS: BP 115/83; PULSE 102; RESP 16; TEMP 36.7; O2SAT 97; BMI 28.1
--- NOTE | 2024-05-21 17:34 | RAD_ITS ---
PROCEDURE: CHEST 1 VIEW (PORTABLE) REASON FOR EXAM: Cough TECHNIQUE: Frontal view of the chest. COMPARISON: 04/18/2022 FINDINGS: There is mild interstitial prominence, likely due to chronic interstitial lung disease.. No acute pulmonary opacity is identified. No pleural effusion or pneumothorax. The cardiomediastinal silhouette is normal in size. There are postoperative changes present, possibly related to prior CABG. No acute osseous or soft tissue abnormality. RAD/Chest 1 View (Portable) IMPRESSION: 1. Mild interstitial prominence, likely due to chronic interstitial lung diseas e. Mild interstitial edema is also possible. Reading Location: [facility]
--- NOTE | 2024-05-21 18:54 | EDS_ITS ---
HPI <ADY Donald - Last Filed: 05/21/24 19:15> History of Present Illness Chief Complaint: Cough Narrative Narrative: Patient is a 64-year-old male with history of coronary artery bypass, type 2 diabetes, COPD, tobacco use, 1 pack/day, history of vascular disease. Presenting to the emergency department for 1 week of cough, congestion, runny nose, ear pressure. Patient states that he has had some intermittent fevers early on. He states he does have yellow sputum. He has been using his butyryl inhaler that does help. PFSH <ADY Donald - Last Filed: 05/21/24 19:15> [facility] Medical History Decreased left ventricular function Encounter for screening for malignant neoplasm of lung in current smoker with 30 pack year history or greater Stenosis of right carotid artery Insulin dependent diabetes mellitus History of non-ST elevation myocardial infarction (NSTEMI) (06/11/18) Emphysema lung Asthma Type 2 diabetes mellitus Arthritis Pancreatitis GERD (gastroesophageal reflux disease) Nicotine dependence Atherosclerosis of coronary artery of [place] heart without angina pectoris Hyperlipidemia Essential (primary) hypertension Home Medications ?Medication ?Instructions ?Recorded ?Last Taken ?Type blood sugar diagnostic (FreeStyle #50 ea 04/02/21 Unkn own Rx Test strips) blood-glucose meter (FreeStyle #1 ea 04/02/21 Unknown Rx System Kit) lancets 28 gauge (FreeStyle #50 ea 04/02/21 Unknown Rx Lancets) pen needle, diabetic 31 gauge x #100 ea 04/02/21 Unkno wn Rx 06/19 (1st Tier Unifine Pentips Plus) aspirin 81 mg chewable tablet 81 mg PO DAILY@0800 heal th 11/01/21 Unknown Rx maintenance #90 tabs nitroglycerin 0.4 mg sublingual 0.4 mg sublingual Q5M PRN 04/24/22 Unknown Rx tablet Cardiac/Chest Pain #20 tabs alfuzosin 10 mg tablet,extended 10 mg PO DAILY 3 Unknown History release 24 hr albuterol sulfate 90 mcg/actuation 2 puff inhalation Q 4H PRN PRN 02/18/23 Unknown Rx aerosol inhaler Wheezing ##1 mometasone-formoterol HFA 100 2 puff inhalation BID #1 3 grams 02/18/23 Unknown Rx mcg-5 mcg/actuation aerosol inhaler (Dulera) atorvastatin 80 mg tablet 80 mg PO QHS #90 tabs Unknown Rx buspirone 5 mg tablet 5 mg PO BID anxiety #180 tab s 06/26/23 Unknown Rx Handicap placard #1 ea 07/22/23 Unknown Rx atenolol 50 mg tablet 50 mg PO DAILY #90 tabs 07/05 10/27 Unknown Rx insulin glargine 100 unit/mL (3 20 unit (0.2 mL) subcu t ONCE #15 mL 07/22/23 Unknown Rx mL) subcutaneous pen insulin lispro protamine-lispro 20 unit (0.2 mL) subcu t BID #15 mL 07/22/23 Unknown Rx 100 unit/mL (50-50) subcutaneous pen (Humalog Mix 50-50 KwikPen) isosorbide mononitrate 30 mg See Rx Instructions .Rout e 07/22/23 Unknown Rx tablet,extended release 24 hr .COMPLEX #90 tabs ondansetron 4 mg disintegrating 4 mg PO Q8H PRN PRN Na usea #10 tabs 08/23/23 Unknown Rx tablet dapagliflozin propanediol 10 mg 10 mg PO DAILY #90 tab s 10/28/23 Unknown Rx tablet (Farxiga) omeprazole 20 mg capsule,delayed See Rx Instructions . Route 10/28/23 Unknown Rx release .COMPLEX #90 caps pen needle, diabetic 31 gauge x #100 ea 10/28/23 Unkno wn Rx 5/16 (Comfort EZ Pen [place]) cilostazol 50 mg tablet 100 mg (2 x 50 mg) PO BID #1 20 tabs 01/07/24 Unknown Rx clopidogrel 75 mg tablet (Plavix) 75 mg PO DAILY #90 t abs 04/20/24 Unknown Rx metformin 1,000 mg tablet 1,000 mg PO BID #180 TABLETS 05/03/24 Unknown Rx evolocumab 140 mg/mL subcutaneous 140 mg subcut Q2W #6 mL 05/09/24 Unknown Rx pen injector (Wolf Bernal) fluticasone propionate 50 2 spray intranasal DAILY #16 grams 05/21/24 Unknown Rx mcg/actuation nasal spray,suspension (Flonase Allergy Relief) Allergy/AdvReac Type Severity Reaction Status Date / Time amoxicillin Allergy Angioedema Verified 05/21/24 17:28 lindane Allergy Rash Verified 05/21/24 17:28 Family History Father Asthma Alcoholism Arthritis Heart disease Hypertension High cholesterol CVA (cerebral vascular accident) Lung cancer Grandfather Myocardial infarction Surgical History History of hernia repair History of carotid endarterectomy (01/06/14) H/O coronary artery bypass surgery (2006) History of left heart catheterization (06/11/18) Social History (Updated 05/17/24 @ 12:50 by Fallon Vidales) Smoking Status: Heavy Smoker (>10/day) Tobacco: How many years used: 45 Electronic Cigarette Use: not used second hand exposure: Yes quit status: considering quitting alcohol intake: never substance use type: does not use caffeine: Yes Type: coffee Number of servings: 5 what type of physical activity do you participate in: none ROS <ADY Donald - Last Filed: 05/21/24 19:15> ROS ED ROS Narrative Constitutional: Negative for fever,weight loss, weakness. Positive for chills Eyes: Negative for vision loss, vision change, double vision ENT: Negative for any sore throat. Positive congestion, ear pain Cardiovascular: Negative for any chest pain, tightness, palpitations Respiratory: Negative for any hemoptysis, dyspnea, dyspnea on exertion, orthopnea. Positive for cough Gastrointestinal: Negative for any abdominal pain, nausea, vomiting, diarrhea, constipation, blood in stool, blood in vomit : Negative for any urinary frequency, dysuria, retention, blood in urine Muscle skeletal: Negative for any neck pain, back pain Neurological: Negative for any headache, syncope, dizziness Skin: Negative for any rashes, itching, abrasions, lacerations Psychiatric: Negative for any depression, anxiety, stress, suicidal ideation, homicidal ideation Hematologic: Negative for any excessive bruising, easy bleeding EXAM <ADY Donald - Last Filed: 05/21/24 19:15> Physical Exam Narrative Exam Narrative: Vital signs reviewed. HEET: Head normocephalic atraumatic, TMs clear bilaterally. Posterior pharynx is clear, moist mucous membranes. Nares clear bilaterally. Neck: Supple with no lymphadenopathy or tenderness. No signs of meningismus. Cardiac: Regular rate and rhythm no murmurs gallops or rubs, equal peripheral pulses bilaterally. Respiratory: Lungs clear to auscultation bilaterally. No chest tenderness. Abdomen: Soft, nontender, nondistended. No abdominal bruit or pulsatile masses. No hepatosplenomegaly Extremities: No peripheral edema, no signs of gross trauma or deformity. Active full range of motion of all extremities. Neuro: Cranial nerves II through XII intact, no focal neurological deficits. Skin: Clean dry and intact with no rash, purpura, petechiae, vesicles or pustules. Backs/flank: No CVA tenderness, no midline spinal tenderness, no deformity. Psych: Normal mood and affect. No SI, HI or acute psychosis. Const Vital Signs: 05/21/24 17:26 Temperature 98.1 F Temperature Source Temporal Pulse Rate 102 H Respiratory Rate 16 Blood Pressure 115/83 H Blood Pressure Mean 93 Pulse Ox 97 Oxygen Delivery Method Room Air Positive well nourished and well developed General Appearance ED: well developed <Dr. Saúl Aguilar DO - Last Filed: 05/21/24 19:20> Physical Exam Const Vital Signs: 05/21/24 17:26 Temperature 98.1 F Temperature Source Temporal Pulse Rate 102 H Respiratory Rate 16 Blood Pressure 115/83 H Blood Pressure Mean 93 Pulse Ox 97 Oxygen Delivery Method Room Air MDM <ADY Donald - Last Filed: 05/21/24 19:15> MDM Radiography Diagnostic Testing: Clinical Impression(s) from Imaging Studies Chest X-Ray 05/21/24 17:34 IMPRESSION: 1. Mild interstitial prominence, likely due to chronic interstitial lung disease. Mild interstitial edema is also possible. Reading Location: [facility] Treatment and Re-Evaluation :: Differential diagnosis includes however is not limited to: COVID-19, influenza, RSV, COPD exacerbation, pleural effusions, community-acquired pneumonia Patient appears generally well, vital signs are stable, patient is nontoxic- appearing. Presenting to the emergency department for complaints of coughPatient did receive a chest x-ray, this did show mild interstitial prominence, likely due to chronic interstitial lung disease. Patient's COVID-19 influenza RSV was negative. At this time, patient was diagnosed with a viral-like URI. Patient will be given Flonase, Mucinex, as well as an allergy medicine. Patient continue following up with his PCP. He will continue to decrease his smoking use. Patient was given strict return precautions, stable for discharge <Dr. Saúl Aguilar, DO - Last Filed: 05/21/24 19:20> [facility] Narrative Medical decision making narrative: I have personally performed a face to face assessment of the patient and have reviewed the TARUN Note. I performed a substantive portion of the visit including all aspects of the following. My ruiz findings include: History: Patient presents with cough and congestion that has been getting worse over the past week. Patient also admits to some dizziness. Patient states he feels like he is off balance. Patient denies any spinning sensation. Patient denies any weakness. The patient states he is coughing up green sputum. The patient admits to some subjective chills but denies any fevers. Patient denies any nausea, vomiting, or diarrhea. Patient states he feels short of breath at times. Patient denies any chest pain. Exam: Vital signs are stable. Patient is afebrile. Patient is in no acute distress. Oral mucosa is pink and moist. Neck is supple. Trachea is midline. There is no JVD. Heart was regular rate and rhythm. Lungs are clear and equal bilaterally. There is good respiratory effort noted. Abdomen is soft. Bowel sounds are normal. There is no tenderness. Cranial nerves II through XII are intact. There are no focal motor or sensory deficits noted. Medical Decision Making: Differential diagnosis includes viral illness, pneumonia, and bronchitis. Chest x-ray will be obtained to assess for pneumonia and bronchitis. COVID-19, influenza, and RSV PCR will be obtained to assess for viral illness. Portable 1 view chest x-ray was obtained. On my independent interpretation, lung cardenas showed mild interstitial prominence likely due to chronic interstitial lung disease. There is normal cardiac silhouette. Bony thorax is normal. There is no acute process noted. Radiologist also interpreted the x- ray and agrees. COVID-19 PCR was reviewed and was negative. Influenza PCR was reviewed and was negative for influenza A and influenza B. RSV PCR was reviewed and was negative. Patient was advised of his findings. Patient was advised that this is most likely a viral illness. Patient was instructed to drink plenty of fluids. Patient was instructed to take Tylenol or ibuprofen as needed for any fevers. Patient was instructed to return if worse in any way. Patient understood and was agreeable with the plan. All questions were answered. Radiography Diagnostic Testing: Clinical Impression(s) from Imaging Studies Chest X-Ray 05/21/24 17:34 IMPRESSION: 1. Mild interstitial prominence, likely due to chronic interstitial lung disease. Mild interstitial edema is also possible. [facility] Triage Chief Complaint: Cough ED Midlevel Provider: Stefan Jean ED Provider: Saúl Aguilar Dx/Rx/DC Orders Clinical Impression: URI (upper respiratory infection), Viral syndrome Instructions: ED URI, Viral, No Abx (Adult) Prescriptions: New fluticasone propionate [Flonase Allergy Relief] 50 mcg/actuation spray,suspension 2 spray intranasal DAILY Qty: 16 0RF Rx Instructions: administer into each nostril No Action nitroglycerin 0.4 mg tablet, sublingual 0.4 mg Sublingual Q5M PRN (Reason: Cardiac/Chest Pain) Qty: 20 1RF alfuzosin 10 mg tablet extended release 24 hr 10 mg PO DAILY Rx Instructions: administer after the same meal each day atorvastatin 80 mg tablet 80 mg PO QHS Qty: 90 3RF insulin glargine 100 unit/mL (3 mL) insulin pen 20 unit subcut ONCE Qty: 15 3RF Rx Instructions: at Bedtime atenolol 50 mg tablet 50 mg PO DAILY Qty: 90 3RF isosorbide mononitrate 30 mg tablet extended release 24 hr See Rx Instructions .ROUTE .COMPLEX Qty: 90 3RF Dose Instruction: TAKE 1 TABLET BY MOUTH EVERY DAY Rx Instructions: TAKE 1 TABLET BY MOUTH EVERY DAY Humalog Mix 50-50 KwikPen 100 unit/mL (50-50) insulin pen 20 unit SC BID Qty: 15 4RF Rx Instructions: 9 pm: eat a meal, take 20 units insulin 1 am: eat a meal during work break 8 am: eat a meal take 20 units insulin (DME) Handicap placard See Rx Instructions .Route .MEDSUPPLY Qty: 1 0RF Rx Instructions: Due to COPD, unable to walk 50 yards without assistance, duration 5 years. (DME) pen needle, diabetic [Comfort EZ Pen [place]] 31 gauge x 5/16 needle See Rx Instructions .Route Qty: 100 3RF Rx Instructions: As directed omeprazole 20 mg capsule,delayed release(DR/EC) See Rx Instructions .ROUTE .COMPLEX Qty: 90 1RF Dose Instruction: TAKE 1 CAPSULE BY MOUTH DAILY Rx Instructions: TAKE 1 CAPSULE BY MOUTH DAILY Farxiga 10 mg tablet 10 mg PO DAILY Qty: 90 1RF cilostazol 50 mg tablet 100 mg PO BID Qty: 120 3RF ondansetron 4 mg tablet,disintegrating 4 mg PO Q8H PRN PRN (Reason: Nausea) Qty: 10 0RF (DME) FreeStyle Test Strip See Rx Instructions .ROUTE .MEDSUPPLY Qty: 50 11RF Rx Instructions: check blood glucose daily (DME) blood-glucose meter [FreeStyle System Kit] Kit See Rx Instructions .ROUTE .MEDSUPPLY Qty: 1 0RF Rx Instructions: check blood glucose daily for type 2 DM (DME) lancets [FreeStyle Lancets] 28 gauge misc See Rx Instructions .ROUTE .MEDSUPPLY Qty: 50 11RF Rx Instructions: Check blood glucose daily for type 2 DM (DME) pen needle, diabetic [1st Tier Unifine Pentips Plus] 31 gauge x 3/16 needle See Rx Instructions .ROUTE .MEDSUPPLY Qty: 100 1RF Rx Instructions: use with lantus nightly aspirin 81 mg tablet,chewable 81 mg PO DAILY@0800 Qty: 90 3RF albuterol sulfate 90 mcg/actuation HFA aerosol inhaler 2 puff inhalation Q4H PRN PRN (Reason: Wheezing) Qty: 1 3RF Dulera 100-5 mcg/actuation HFA aerosol inhaler 2 puff inhalation BID Qty: 13 0RF buspirone 5 mg tablet 5 mg PO BID Qty: 180 1RF clopidogrel [Plavix] 75 mg tablet 75 mg PO DAILY Qty: 90 1RF metformin 1,000 mg tablet 1,000 mg PO BID Qty: 180 1RF Repatha SureClick 140 mg/mL pen injector 140 mg subcut Q2W Qty: 6 3RF Primary Care Provider: Ant Nuñez Referrals: Ant Nuñez, DO [Primary Care Provider] - Activity Restrictions/Additional Instructions: He will continue to use the Flonase Print Language: Tongan Disposition Disposition: Home, Self Care
== END 2024-05-21 19:33 | disposition home or self-care (01) ==
PROVIDERS: Emergency Provider Emergency Medicine; PCP Family Medicine; Visit Provider Emergency Medicine
DX: R05.9 Cough, unspecified (principal); J44.9 Chronic obstructive pulmonary disease, unspecified; Z79.4 Long term (current) use of insulin; E11.9 Type 2 diabetes mellitus without complications; J06.9 Acute upper respiratory infection, unspecified; I10 Essential (primary) hypertension; B34.9 Viral infection, unspecified; E78.5 Hyperlipidemia, unspecified; I25.10 Atherosclerotic heart disease of native coronary artery without angina pectoris; I25.2 Old myocardial infarction; Z79.82 Long term (current) use of aspirin; Z79.899 Other long term (current) drug therapy; Z79.51 Long term (current) use of inhaled steroids; Z79.84 Long term (current) use of oral hypoglycemic drugs; Z79.02 Long term (current) use of antithrombotics/antiplatelets; K21.9 Gastro-esophageal reflux disease without esophagitis; F17.200 Nicotine dependence, unspecified, uncomplicated
CPT/HCPCS: 71045; 87631; 99282

== ENCOUNTER → 2024-06-13 | Outpatient (CLI) | payer MEDICAID, SELFPAY ==
--- NOTE | 2024-06-13 13:43 | ART_ITS ---
Reason For Study Reason For Study: s/p Rt Popliteal atherectomy/angioplasty Procedure A bilateral lower extremity continuous wave Doppler with analog waveform analysis and ankle brachial indexes. Left Segmental Pressures Left brachial= 106mmHg. Left posterior tibial artery = 93mmHg. Left dorsalis pedis artery = 86mmHg. Left digit = 55 mmHg. Right Segmental Pressures Right brachial= 115mmHg. Right posterior tibial artery = 99mmHg. Right dorsalis pedis artery = 81mmHg. Right digit = 66 mmHg. Indices The right ankle brachial index by the posterior tibial artery is 0.86. The right ankle brachial index by the dorsalis pedis is 0.70. The right digital-brachial index is 0.57. The left ankle brachial index by the posterior tibial artery is 0.81. The left ankle brachial index by the dorsalis pedis is 0.75. The left digital-brachial index is 0.48. VL/Ankle Brachial Index Interpretation Summary Right SUZY 0.86, moderate arterial insufficiency. Doppler/PVR waveforms of the r ight ankle moderately diminished at rest. Left SUZY 0.81, moderate arterial insufficiency. Doppler/PVR waveforms of the le ft ankle moderately diminished at rest. Ordering Physician: Lubna Manley Referring Physician: Ant Nuñez Performed By: Solange Pena RDCS/RVT
--- NOTE | 2024-06-13 13:43 | ADUL_ITS ---
Reason For Study Reason For Study: Atherectomy/Angioplasty Rt Popliteal Artery Right Velocities Ext. Iliac Artery, dist = 148 cm./sec. Common Femoral Artery, mid = 175 cm./sec. Supf Femoral Artery, prox = 188 cm./sec. Supf Femoral Artery, mid = 84 cm./sec. Supf Femoral Artery, dist. = 56 cm./sec. Profunda Femoral Artery = 123 cm./sec. Popliteal Artery, mid = 63 cm./sec. Post. Tibial Artery, prox = 32 cm./sec. Post. Tibial Artery, mid = 44 cm./sec. Post. Tibial Artery, dist = 37 cm./sec. Peroneal Artery, prox = 35 cm./sec. Peroneal Artery, mid = 42 cm./sec. Peroneal Artery,dist = 24 cm./sec. Ant. Tibial Artery, prox = 25 cm./sec. Ant. Tibial Artery, mid = 8 cm./sec. Ant. Tibial Artery, dist = 10 cm./sec. Procedure Exam performed in department. /US Art Duplex Unilat Lower Ext Interpretation Summary Right lower extremity arteries patent with normal velocities and no focal steno sis identified. Ordering Physician: Lubna Manley Referring Physician: Ant Nuñez Performed By: Solange Pena, PENNY, RVT
== END | disposition home or self-care (01) ==
LOC: CVS 13:42
PROVIDERS: PCP Family Medicine; Referring Provider Physician Assistant; Visit Provider Physician Assistant
DX: Z48.812 Encounter for surgical aftercare following surgery on the circulatory system (principal); I70.239 Atherosclerosis of native arteries of right leg with ulceration of unspecified site
CPT/HCPCS: 93922; 93926

== ENCOUNTER 2024-07-29 19:58 | Emergency (ER) | payer MEDICAID, SELFPAY ==
[2024-07-29 20:00] VITALS: BP 102/65; PULSE 95; RESP 24; TEMP 36.2; O2SAT 93; BMI 26.8
--- NOTE | 2024-07-29 20:24 | RAD_ITS ---
PROCEDURE: CHEST 1 VIEW (PORTABLE) 07/29/2024 REASON FOR EXAM: CHEST PAIN TECHNIQUE: Frontal view of the chest. COMPARISON: 06/19/2024 FINDINGS: Hardware: Sternotomy wires are present. Heart: Cardiac and mediastinal contours are stable. Lungs: The lungs are clear. Bones: The bones are unremarkable. Other: RAD/Chest 1 View (Portable) IMPRESSION: No Acute Findings. Reading Location: [id number]
[2024-07-29 20:29] VITALS: BP 102/65; PULSE 88; RESP 20; O2SAT 94
[2024-07-29 20:35] LABS: Absolute Lymphocyte Count 2.79 X10^3/uL (0.83-4.51); Basophil# 0.02 X10^3/uL; Basophil% 0.3 % (0-1); Eosinophil# 0.19 X10^3/uL; Eosinophils% 2.5 % (0-5); Hematocrit 44.1 % (40-54); Hemoglobin 15.6 g/dL (13.0-16.5); Lymphocyte # 2.79 X10^3/ul (0.83-4.51); Lymphocyte % 37.4 % (19-41); Mean Corp Hgb Conc 35.4 g/dL (32-36); Mean Corpuscular Hgb 32.2 pg (27.0-32.0); Mean Corpuscular Volume 90.9 fL (80-94); Mean Platelet Vol. 10.3 fl (6.2-12.0); Monocyte# 0.49 X10^3/uL; Monocyte% 6.6 % (0-10); NRBC Flagged by Analyzer 0 % (0-5); Neutrophil # 3.96 X10^3/uL (2.7-7.7); Neutrophil % 53.1 % (47-70); Platelet Count 275 K/mm3 (150-450); RBC Distribution Width CV 12.7 % (11.6-14.6); RBC Distribution Width SD 41.7 fl (35.1-43.9); Red Blood Count 4.85 M/mm3 (4.6-6.2); White Blood Count 7.5 K/mm3 (4.4-11.0)
--- NOTE | 2024-07-29 20:41 | ED.RN ---
spoke with daughter Christine for pt update.
[2024-07-29 21:00] VITALS: BP 109/65; PULSE 87; O2SAT 95
[2024-07-29 21:10] LABS: Troponin T High Sensitivity 22 ng/L (<=22)
--- NOTE | 2024-07-29 21:16 | ED.VIS.CHEST ---
HPI History of Present Illness Chief Complaint: Chest Pain Informant: patient and friend Narrative Narrative: Presents for evaluation of transient chest pain with tingling in the fingers. States that sharp and tightness in combination. He was sweaty. No nausea. No dyspnea. Reported history of four-vessel bypass in the past. He states he had a heart attack a month ago he states he may have been cathed however he is unclear of any stenting. He is on aspirin and new medicine started from discharge. Status post 4 baby aspirin to EMS and 2 nitro sublingual currently symptom-free. Tobacco history. Hypertension hyperlipidemia and hypercholesterolemia. Family history uncles MIs in the 40s and 50s. States that this does not feel like his previous MIs however. CVD Risk Factors: Positive for Hypertension, Diabetes, Hypercholesterolemia, Family History 1' </=[address] [facility] Medical History GERD (gastroesophageal reflux disease) Anxiety High blood cholesterol Diabetes mellitus Emphysema, unspecified COPD (chronic obstructive pulmonary disease) Decreased left ventricular function Encounter for screening for malignant neoplasm of lung in current smoker with 30 pack year history or greater Stenosis of right carotid artery Insulin dependent diabetes mellitus History of non-ST elevation myocardial infarction (NSTEMI) (06/11/18) Emphysema lung Asthma Type 2 diabetes mellitus Arthritis Pancreatitis GERD (gastroesophageal reflux disease) Nicotine dependence Atherosclerosis of coronary artery of [place] without angina pectoris Hyperlipidemia Essential (primary) hypertension Medical History no medical history Home Medications ?Medication ?Instructions ?Recorded ?Last Taken ?Type blood sugar diagnostic (FreeStyle #50 ea 04/02/21 Unknown Rx Test strips) blood-glucose meter (FreeStyle #1 ea 04/02/21 Unknown Rx System Kit) lancets 28 gauge (FreeStyle #50 ea 04/02/21 Unknown Rx Lancets) pen needle, diabetic 31 gauge x #100 ea 04/02/21 Unknown Rx 3/16 (1st Tier Unifine Pentips Plus) nitroglycerin 0.4 mg sublingual 0.4 mg sublingual Q5M PRN 04/24/22 Unknown Rx tablet Cardiac/Chest Pain #20 tabs alfuzosin 10 mg tablet,extended 10 mg PO DAILY 01/26/23 Unknown History release 24 hr buspirone 5 mg tablet 5 mg PO BID anxiety #180 tabs 06/26/23 Unknown Rx Handicap placard #1 ea 07/22/23 Unknown Rx insulin lispro protamine-lispro 20 unit (0.2 mL) subcut BID #15 mL 07/22/23 Unknown Rx 100 unit/mL (50-50) subcutaneous pen (Humalog Mix 50-50 KwikPen) isosorbide mononitrate 30 mg See Rx Instructions .Route 07/22/23 Unknown Rx tablet,extended release 24 hr .COMPLEX #90 tabs ondansetron 4 mg disintegrating 4 mg PO Q8H PRN PRN Nausea #10 tabs 08/23/23 Unknown Rx tablet pen needle, diabetic 31 gauge x #100 ea 10/28/23 Unknown Rx 5/16 (Comfort EZ Pen [place]) clopidogrel 75 mg tablet (Plavix) 75 mg PO DAILY #90 tabs 04/20/24 Unknown Rx evolocumab 140 mg/mL subcutaneous 140 mg subcut Q2W #6 mL 05/09/24 Unknown Rx pen injector (Repatha SureClick) fluticasone propionate 50 2 spray intranasal DAILY #16 grams 05/21/24 Unknown Rx mcg/actuation nasal spray,suspension (Flonase Allergy Relief) albuterol sulfate 90 mcg/actuation 2 puff inhalation Q4H PRN 06/17/24 Unknown History aerosol inhaler shortness of breath or wheezing atenolol 50 mg tablet 50 mg PO DAILY 06/17/24 Unknown History cilostazol 50 mg tablet 50 mg PO DAILY Cholesterol 06/17/24 Unknown History dapagliflozin propanediol 10 mg 10 mg PO DAILY 06/17/24 Unknown History tablet (Farxiga) ezetimibe 10 mg tablet 10 mg PO DAILY 06/17/24 Unknown History insulin glargine 100 unit/mL (3 20 unit subcut DAILY Diabetes 06/17/24 Unknown History mL) subcutaneous pen (Lantus Solostar U-100 Insulin) losartan 25 mg tablet 25 mg PO DAILY 06/17/24 Unknown History metformin 1,000 mg tablet 1,000 mg PO BID 06/17/24 Unknown History omeprazole 20 mg capsule,delayed 20 mg PO DAILY 06/17/24 Unknown History release mometasone-formoterol HFA 100 2 puff inhalation BID COPD 06/18/24 Unknown History mcg-5 mcg/actuation aerosol inhaler (Dulera) aspirin 81 mg chewable tablet 81 mg PO BREAKFAST #0 tabs 06/20/24 Unknown Rx furosemide 40 mg tablet 40 mg PO BIDLX #60 tabs 06/20/24 Unknown Rx metoprolol succinate 25 mg 25 mg PO DAILY #30 tabs 06/20/24 Unknown Rx tablet,extended release 24 hr nicotine 21 mg/24 hr daily 21 mg transdermal DAILY #30 ea 06/20/24 Unknown Rx transdermal patch spironolactone 25 mg tablet 25 mg PO DAILY #30 tabs 06/20/24 Unknown Rx albuterol sulfate 90 mcg/actuation 2 puff PO Q4H PRN PRN for wheezing 06/28/24 Unknown Rx aerosol inhaler #8.5 GMS Allergy/AdvReac Type Severity Reaction Status Date / Time amoxicillin Allergy Angioedema Verified 07/14/24 10:06 lindane Allergy Rash Verified 07/14/24 10:06 Family History Father Asthma Alcoholism Arthritis Heart disease Hypertension High cholesterol CVA (cerebral vascular accident) Lung cancer Grandfather Myocardial infarction Family History no significant family his Surgical History S/P CABG x 4 History of hernia repair History of carotid endarterectomy (01/06/14) H/O coronary artery bypass surgery (2006) History of left heart catheterization (06/11/18) Surgical History no surgical history Social History Smoking Status: Heavy Smoker (>10/day) Tobacco: How many years used: 45 Electronic Cigarette Use: not used second hand exposure: Yes quit status: considering quitting alcohol intake: never substance use type: does not use caffeine: Yes Type: coffee Number of servings: 5 what type of physical activity do you participate in: none ROS ROS ED Constitutional Constitutional ED: Denies chills, fever(s) or sweats ENT ENT ED: Denies sore throat Cardiovascular Cardiovascular: Reports chest pain; Denies leg edema, palpitations or racing heartbeat Respiratory/Chest Respiratory/Chest: Denies cough, dyspnea or dyspnea on exertion Gastrointestinal Gastrointestinal: Denies abdominal pain, diarrhea, nausea or vomiting Genitourinary Genitourinary ED: Denies dysuria, hematuria or urinary frequency Musculoskeletal Musculoskeletal: Denies back pain, extremity pain or neck pain Integumentary Denies rash or wounds Neurologic Neurologic: Denies headache(s), paresthesias or weakness EXAM Physical Exam Const Vital Signs: 07/29/24 20:00 07/29/24 20:29 07/29/24 21:00 Temperature 97.2 F L Temperature Source Oral Pulse Rate 95 88 87 Respiratory Rate 24 H 20 H Blood Pressure 102/65 102/65 109/65 Blood Pressure Mean 77 77 79 Pulse Ox 93 94 95 Oxygen Delivery Method Room Air 07/29/24 22:00 Temperature Temperature Source Pulse Rate 82 Respiratory Rate Blood Pressure 111/67 Blood Pressure Mean 81 Pulse Ox 95 Oxygen Delivery Method Room Air Positive well nourished and well developed General Appearance ED: well developed and NAD HEENT Reports moist mucous membranes normocephalic and atraumatic Eyes General Eye ED: Yes normal appearance of both eyes Neck full ROM Chest Wall Chest Narrative: Healed midline chest scar. Chest: Negative for tenderness Resp normal respiratory effort and normal air movement Effort and Inspection: symmetric chest movement; Negative for respiratory distress Cardio regular rate, regular rhythm and no murmurs Peripheral Pulses: pulses 2+ throughout GI normal to inspection, nondistended, normoactive bowel sounds and non-tender Palpation: Negative for guarding or rebound tenderness present Extremity normal to inspection General Extremety ED: Negative for edema or tenderness General Extremity: Negative for edema Neuro oriented x3 and no sensory deficits noted Sensorium / Orientation: awake and alert Skin no rashes or lesions noted and no wounds Heart Score History: Moderately Suspicious ECG: Normal Age: >45 - <65 years Risk Factors: >/= 3 Risk Factors or History of CAD Troponin: >1 - <3 Normal Limit Score: 5 MDM MDM MDM Narrative Medical decision making narrative: Interventions / MDM: Differential diagnosis: Chest pain, history of coronary disease, angina, history of cardiomyopathy. Diagnosis considered but do not suspect: ACS however EKG no ischemic findings cardiac enzyme negative. My EKG interpretation: Sinus rate of 98, no ST changes. Isolated T wave version aVL nonspecific. QTc 42. Imaging independently reviewed and interpreted by myself: 1 view chest x-ray: No acute process also read by radiology. External documents reviewed: Cardiology note from July 11, 2024: A previous cardiac catheterization demonstrated a patent left internal mammary artery to the left anterior descending artery, patent right internal mammary artery to the right coronary artery.? The saphenous vein graft to obtuse marginal and diagonal branches were occluded.? He does have a history of hypertension, hyperlipidemia, nicotine abuse, and his previous bypass was in 2006.? It was decided to treat him medically. He presented to [facility] in April 2022 with chest pain. On account of non-ST elevated myocardial infarction, he underwent a heart catheterization on 04/18/2022 that showed patent LOGAN to posterior descending artery and presumed patent ALMANZAR to LAD as this was noted be patent at last heart catheterization. Ejection fraction was noted be preserved. He was noted to have occluded sequential graft to obtuse marginal branch and occluded sequential graft to diagonal vessel. Medical therapy was recommended. Echocardiogram on 04/19/2022 showed ejection fraction of 60% and no regional wall motion abnormalities. He is raising his grandson. He had presented to the emergency room in June of this year, and was diagnosed with pneumonia, and CHF. He underwent an echocardiogram on 06/18/24 which demonstrated a decreased ejection fraction of 35-40%, and severely hypokinetic apex. Medical therapy was recommended. Test considered but not ordered:N/A ED course: Currently symptom-free. EKG no acute findings. Cardiac workup was initiated. Status post aspirin by EMS. Review of record he had type II CT however did have abnormal Lexiscan with apical hypokinesis. Medical management was recommended. 2240: Patient initial troponin 22 remains symptom-free delta troponin was 27. Chest x-ray negative. Labs are stable. Known coronary disease with recent cardiomyopathy with apical hypokinesis. I discussed with covering real estate branch manager Dr. Guerrier, we discussed his medications as he is on metoprolol lisinopril spironolactone. He is on isosorbide mononitrate at 30 mg. He recommends increasing his isosorbide to 60 mg daily and follow-up with office in outpatient cath can be ordered if need be. We discussed strict return precautions to the patient. Patient understands and agrees with this plan. He will take 2 tabs of his current isosorbide dinitrate. He will call for follow-up with cardiology. Per cardiology no need for 4-hour troponin as patient currently symptom-free and medication adjustments are being made for chest pain symptoms. Re-evaluation: stable Disposition discussed with patient/family/significant other: Patient and family. Case discussed with consulting clinician: Cardiology This note was generated with Dragon dictation software. It may contain incorrect words, spelling, and punctuation that were not noted in checking the note before signing. Lab Data Attestation: I reviewed the patient's lab results. Labs: Laboratory Results - last 24 hr 07/29/24 07/29/24 20:05 21:56 WBC 7.5 RBC 4.85 Hgb 15.6 Hct 44.1 MCV 90.9 MCH 32.2 H MCHC 35.4 RDW Std Deviation 41.7 RDW Coeff of Maycol 12.7 Plt Count 275 MPV 10.3 Immature Gran % (Auto) 0.100 Neut % (Auto) 53.1 Lymph % (Auto) 37.4 Maury % (Auto) 6.6 Eos % (Auto) 2.5 Baso % (Auto) 0.3 Absolute Neuts (auto) 4.0 Absolute Lymphs (auto) 2.79 Nucleated RBC % 0 Sodium 134 Potassium 4.0 Chloride 99 Carbon Dioxide 19.8 L Anion Gap 16 H BUN 23 H Creatinine 1.11 Estim Creat Clear Calc 71.61 Est GFR (MDRD) Non-Af 74 BUN/Creatinine Ratio 20.7 H Glucose 400 H Calcium 9.3 Troponin T High Sens 22 D Troponin T Hi Sens 2 Hr 27 H Radiography Diagnostic Testing: Clinical Impression(s) from Imaging Studies Chest X-Ray 07/29/24 20:24 IMPRESSION: No Acute Findings. Reading Location: [facility] Discharge Plan Triage Chief Complaint: Chest Pain ED Provider: Lawson Castellon Dx/Rx/DC Orders Clinical Impression: Chest pain, CAD (coronary artery disease), Cardiomyopathy Instructions: ED Chest Pain, Uncertain Cause Prescriptions: No Action nitroglycerin 0.4 mg tablet, sublingual 0.4 mg Sublingual Q5M PRN (Reason: Cardiac/Chest Pain) Qty: 20 1RF alfuzosin 10 mg tablet extended release 24 hr 10 mg PO DAILY Rx Instructions: administer after the same meal each day isosorbide mononitrate 30 mg tablet extended release 24 hr See Rx Instructions .ROUTE .COMPLEX Qty: 90 3RF Dose Instruction: TAKE 1 TABLET BY MOUTH EVERY DAY Rx Instructions: TAKE 1 TABLET BY MOUTH EVERY DAY Humalog Mix 50-50 KwikPen 100 unit/mL (50-50) insulin pen 20 unit SC BID Qty: 15 4RF Rx Instructions: 9 pm: eat a meal, take 20 units insulin 1 am: eat a meal during work break 8 am: eat a meal take 20 units insulin (DME) Handicap placard See Rx Instructions .Route .MEDSUPPLY Qty: 1 0RF Rx Instructions: Due to COPD, unable to walk 50 yards without assistance, duration 5 years. (DME) pen needle, diabetic [Comfort EZ Pen [place]] 31 gauge x 5/16 needle See Rx Instructions .Route Qty: 100 3RF Rx Instructions: As directed ondansetron 4 mg tablet,disintegrating 4 mg PO Q8H PRN PRN (Reason: Nausea) Qty: 10 0RF fluticasone propionate [Flonase Allergy Relief] 50 mcg/actuation spray,suspension 2 spray intranasal DAILY Qty: 16 0RF Rx Instructions: administer into each nostril cilostazol 50 mg tablet 50 mg PO DAILY metformin 1,000 mg tablet 1,000 mg PO BID losartan 25 mg tablet 25 mg PO DAILY omeprazole 20 mg capsule,delayed release(DR/EC) 20 mg PO DAILY albuterol sulfate 90 mcg/actuation HFA aerosol inhaler 2 puff inhalation Q4H PRN (Reason: shortness of breath or wheezing) atenolol 50 mg tablet 50 mg PO DAILY ezetimibe 10 mg tablet 10 mg PO DAILY insulin glargine [Lantus Solostar U-100 Insulin] 100 unit/mL (3 mL) insulin pen 20 unit subcut DAILY dapagliflozin propanediol [Farxiga] 10 mg tablet 10 mg PO DAILY Dulera 100-5 mcg/actuation HFA aerosol inhaler 2 puff inhalation BID furosemide 40 mg Tablet 40 mg PO BIDLX Qty: 60 0RF spironolactone 25 mg Tablet 25 mg PO DAILY Qty: 30 0RF nicotine 21 mg/24 hr Patch 24 Hour 21 mg transdermal DAILY Qty: 30 0RF aspirin 81 mg Tablet,Chewable 81 mg PO BREAKFAST Qty: 0 0RF metoprolol succinate 25 mg Tablet Extended Release 24 Hr 25 mg PO DAILY Qty: 30 0RF (DME) FreeStyle Test Strip See Rx Instructions .ROUTE .MEDSUPPLY Qty: 50 11RF Rx Instructions: check blood glucose daily (DME) blood-glucose meter [FreeStyle System Kit] Kit See Rx Instructions .ROUTE .MEDSUPPLY Qty: 1 0RF Rx Instructions: check blood glucose daily for type 2 DM (DME) lancets [FreeStyle Lancets] 28 gauge misc See Rx Instructions .ROUTE .MEDSUPPLY Qty: 50 11RF Rx Instructions: Check blood glucose daily for type 2 DM (DME) pen needle, diabetic [1st Tier Unifine Pentips Plus] 31 gauge x 3/16 needle See Rx Instructions .ROUTE .MEDSUPPLY Qty: 100 1RF Rx Instructions: use with lantus nightly buspirone 5 mg tablet 5 mg PO BID Qty: 180 1RF clopidogrel [Plavix] 75 mg tablet 75 mg PO DAILY Qty: 90 1RF Repatha SureClick 140 mg/mL pen injector 140 mg subcut Q2W Qty: 6 3RF albuterol sulfate 90 mcg/actuation HFA aerosol inhaler 2 puff PO Q4H PRN PRN (Reason: for wheezing) Qty: 8.5 1RF Primary Care Provider: Ant Nuñez Referrals: Ant Nuñez, [Primary Care Provider] - Ronit Galvez BARBACK, BARBACK-C [Non-Staff -Ordering Privileges] - 3-5 Days Activity Restrictions/Additional Instructions: Discussed with Dr. Guerrier in the ED. Increase your isosorbide mononitrate to 60 mg, therefore take 2 tabs at once daily. Continue your other medications. Follow-up with cardiology for reevaluation. If symptoms recur and worsens, return directly to the ED for reevaluation. Print Language: Andorran Disposition Disposition: Home, Self Care
[2024-07-29 21:41] LABS: Anion Gap 16 (5-15); BUN 23 mg/dL (4-19); BUN/Creat Ratio 20.7 RATIO (10-20); Calcium,Total 9.3 mg/dL (7.6-11.0); Carbon Dioxide 19.8 mmol/L (21.0-32.0); Chloride 99 mmol/L (98-108); Creatinine, Serum 1.11 mg/dL (0.70-1.20); EST Glomerular Filtration Rate 74 (>60); Estimated Creatinine Clearance 71.61 ml/min (50-250); Glucose 400 mg/dL (70-99); Sodium Level 134 mmol/L (133-145)
[2024-07-29 22:00] VITALS: BP 111/67; PULSE 82; O2SAT 95
[2024-07-29 22:26] LABS: Troponin T High Sens 2 HR 27 ng/L (<=22)
[2024-07-29 23:00] VITALS: BP 117/69
[2024-07-29 23:02] VITALS: BP 117/69; PULSE 82; RESP 16; TEMP 36.2; O2SAT 95
== END 2024-07-29 23:03 | disposition home or self-care (01) ==
PROVIDERS: Emergency Provider Emergency Medicine; PCP Family Medicine; Visit Provider Emergency Medicine
DX: R07.9 Chest pain, unspecified (principal); I11.0 Hypertensive heart disease with heart failure; I50.9 Heart failure, unspecified; J44.9 Chronic obstructive pulmonary disease, unspecified; I42.9 Cardiomyopathy, unspecified; E11.9 Type 2 diabetes mellitus without complications; Z79.4 Long term (current) use of insulin; E78.00 Pure hypercholesterolemia, unspecified; F17.200 Nicotine dependence, unspecified, uncomplicated; I25.10 Atherosclerotic heart disease of native coronary artery without angina pectoris; Z79.82 Long term (current) use of aspirin; I25.2 Old myocardial infarction; F41.9 Anxiety disorder, unspecified; Z79.899 Other long term (current) drug therapy; Z79.02 Long term (current) use of antithrombotics/antiplatelets; Z79.51 Long term (current) use of inhaled steroids; Z79.84 Long term (current) use of oral hypoglycemic drugs; K21.9 Gastro-esophageal reflux disease without esophagitis
CPT/HCPCS: 71045; 80048; 84484; 85025; 93005; 99285; A4216

== ENCOUNTER → 2024-09-08 | Outpatient (CLI) | payer MEDICAID, SELFPAY ==
--- NOTE | 2024-09-08 10:10 | ART_ITS ---
Reason For Study Reason For Study: BLE Claudication Procedure A bilateral lower extremity continuous wave Doppler with analog waveform analysis,segmental pressures,and ankle brachial indexes without exercise. Left Segmental Pressures Left brachial= 105mmHg. Left low thigh = 164mmHg. Left calf = 104mmHg. Left posterior tibial artery = 109mmHg. Left dorsalis pedis artery = 81mmHg. Left digit = 78 mmHg. The left posterior tibial artery waveforms are triphasic. The left dorsalis pedis waveforms are biphasic. Right Segmental Pressures Right brachial= 102mmHg. Right low thigh = 156mmHg. Right calf = 71mmHg. Right posterior tibial artery = 84mmHg. Right dorsalis pedis artery = 80mmHg. Right digit = 66 mmHg. The right posterior tibial artery waveforms are biphasic. The right dorsalis pedis waveforms are biphasic. Indices The right ankle brachial index by the posterior tibial artery is 0.80. The right ankle brachial index by the dorsalis pedis is 0.76. The right digital-brachial index is 0.63. The left ankle brachial index by the posterior tibial artery is 1.04. The left ankle brachial index by the dorsalis pedis is 0.77. The left digital-brachial index is 0.74. VL/Lower Ext Art Exam w/o Exercis Interpretation Summary Right SUZY 0.8, moderate arterial insufficiency. Doppler/PVR waveforms and segme ntal pressures reveal distal SFA/popliteal disease Left SUZY 1.04, normal. Doppler/PVR waveforms of the left leg normal at rest. TB I diminished, pedal/digit disease vs spasm. Ordering Physician: Lubna Manley Referring Physician: Ant Nuñez Performed By: Yonas Lock RVT
--- NOTE | 2024-09-08 10:10 | CDU_ITS ---
Reason For Study Reason For Study: Bilateral Carotid Artery Disease Rt. Velocities/BP Lt. Velocities/BP Prox CCA 52.7/6.0 cm/sec. Prox CCA 96.5/35.1 cm/sec. Mid CCA 49.0/7.2 cm/sec. Mid CCA 96.5/35.1 cm/sec. Dist CCA 49.0/8.5 cm/sec. Dist CCA 92.8/35.1 cm/sec. Prox ICA 53.1/0.0 cm/sec. Prox ICA 192.3/76.0 cm/sec. Rt ICA appears occluded. Mid ICA 79.8/36.9 cm/sec. Prox ECA 163.8/18.9 cm/sec. Dist ICA 78.7/38.0 cm/sec. Rt. Vert. 28.7/11.3 cm/sec. Lt. ICA/CCA = 2.0. Prox ECA 179.8/8.6 cm/sec. Lt. Vert. 52.3/19.2 cm/sec. Right Extracranial There is heterogeneous, smooth atherosclerotic plaque noted in the right common carotid artery. There is heterogeneous, irregular atherosclerotic plaque noted in the right internal carotid artery. The right internal carotid artery is occluded. There is heterogeneous, irregular atherosclerotic plaque noted in the right external carotid artery. Antegrade flow is noted in the right vertebral artery. Left Extracranial There is heterogeneous, irregular atherosclerotic plaque noted in the left common carotid artery. There is heterogeneous, irregular atherosclerotic plaque noted in the left internal carotid artery. The atherosclerotic plaque causes acoustic shadowing. There is heterogeneous, irregular atherosclerotic plaque noted in the left external carotid artery. The atherosclerotic plaque causes acoustic shadowing. Antegrade flow is noted in the left vertebral artery. Procedure Carotid Duplex 20545. This is a Carotid Duplex examination using B-mode, color flow and specral Doppler. The exam was diagnostic. Exam performed in department. VL/Carotid Duplex Ultrasound Interpretation Summary Occlusion of the right extracranial internal carotid. Moderate (50-69%) stenosis left extracranial internal carotid. Patent and antegrade vertebrals bilaterally. Ordering Physician: Lubna Manley Referring Physician: Thomas Chaudhry Chi Performed By: Yonas Lock RVT
== END | disposition home or self-care (01) ==
LOC: CVS 10:09
PROVIDERS: PCP Family Medicine; Referring Provider Physician Assistant; Visit Provider Physician Assistant
DX: I77.9 Disorder of arteries and arterioles, unspecified (principal); I73.9 Peripheral vascular disease, unspecified; I65.23 Occlusion and stenosis of bilateral carotid arteries
CPT/HCPCS: 93880; 93923

== ENCOUNTER 2024-09-18 09:50 | Observation (INO) | payer MEDICAID, SELFPAY ==
[2024-09-18] VITALS (12 sets, daily range): BP systolic 97–136; BP diastolic 59–85; PULSE 93–110; RESP 15–24; TEMP 36.1–36.8; O2SAT 93–98; BMI 26.9
--- NOTE | 2024-09-18 10:10 | ED.VIS.CHEST ---
HPI History of Present Illness Chief Complaint: Chest Pain Informant: patient Onset/Context/Timing Onset: Days (3) Activity at onset: gradual Timing: Continuous Quality: Positive for Heaviness and Pressure Location: Substernal Worsened By: Nothing Relieved By: - (Standing) Associated Symptoms: Positive for Dyspnea, Cough, Lightheadedness and Palpitations; Negative for Nausea, Vomiting, Diaphoresis, Fever or Acid Reflux Narrative Narrative: Patient presents with chest pressure that has been constant for the past 3 days. Patient states it is worse when he wakes up in the morning. Patient states it is better with standing. Patient describes it as a heaviness like someone is sitting on his chest. Patient states it is over the substernal area. Patient states it has been constant for the past 3 days. Patient admits to a cough and shortness of breath. Patient also admits to some lightheadedness and palpitations. Patient denies any nausea or vomiting. Patient denies any diaphoresis. Patient does admit to some increased swelling of his ankles and lower legs. CVD Risk Factors: Positive for Hypertension, Hypercholesterolemia and Smoking; Negative for Diabetes or Family History 1' </=55 PE Risk Factors: Negative for Recent Travel/Surgery, Recent Immobilization, Prior DVT or PE, Cancer or OCP + Smoking + >/=35 PFSH PFSH Medical History GERD (gastroesophageal reflux disease) Anxiety High blood cholesterol Diabetes mellitus Emphysema, unspecified COPD (chronic obstructive pulmonary disease) Decreased left ventricular function Encounter for screening for malignant neoplasm of lung in current smoker with 30 pack year history or greater Stenosis of right carotid artery Insulin dependent diabetes mellitus History of non-ST elevation myocardial infarction (NSTEMI) (06/11/18) Emphysema lung Asthma Type 2 diabetes mellitus Arthritis Pancreatitis GERD (gastroesophageal reflux disease) Nicotine dependence Atherosclerosis of coronary artery of [place] heart without angina pectoris Hyperlipidemia Essential (primary) hypertension Home Medications Medication Instructions Recorded Last Taken Type blood sugar diagnostic (FreeStyle #50 ea 04/02/21 Unknown Rx Test strips) blood-glucose meter (FreeStyle #1 ea 04/02/21 Unknown Rx System Kit) lancets 28 gauge (FreeStyle #50 ea 04/02/21 Unknown Rx Lancets) pen needle, diabetic 31 gauge x #100 ea 04/02/21 Unknown Rx 316" (1st Tier Unifine Pentips Plus) nitroglycerin 0.4 mg sublingual 0.4 mg sublingual Q5M PRN 04/24/22 09/18/24 Rx tablet Cardiac/Chest Pain #20 tabs alfuzosin 10 mg tablet,extended 10 mg PO DAILY 01/26/23 Unknown History release 24 hr buspirone 5 mg tablet 5 mg PO BID anxiety #180 tabs 06/26/23 09/18/24 Rx Handicap placard #1 ea 07/22/23 Unknown Rx isosorbide mononitrate 30 mg See Rx Instructions .Route 07/22/23 Unknown Rx tablet,extended release 24 hr .COMPLEX #90 tabs pen needle, diabetic 31 gauge x #100 ea 10/28/23 Unknown Rx 08/19" (Comfort EZ Pen [place]) evolocumab 140 mg/mL subcutaneous 140 mg subcut Q2W #6 mL 05/09/24 09/12/24 Rx pen injector (Wolf SureSauravick) albuterol sulfate 90 mcg/actuation 2 puff inhalation Q4H PRN 06/17/24 09/17/24 History aerosol inhaler shortness of breath or wheezing atenolol 50 mg tablet 50 mg PO DAILY 06/17/24 09/18/24 History ezetimibe 10 mg tablet 10 mg PO DAILY 06/17/24 09/18/24 History insulin glargine 100 unit/mL (3 20 unit subcut DAILY Diabetes 06/17/24 09/18/24 History mL) subcutaneous pen (Lantus Solostar U-100 Insulin) losartan 25 mg tablet 25 mg PO DAILY 06/17/24 09/18/24 History metformin 1,000 mg tablet 1,000 mg PO BID 06/17/24 09/18/24 History mometasone-formoterol HFA 100 2 puff inhalation BID COPD 06/18/24 09/18/24 History mcg-5 mcg/actuation aerosol inhaler (Dulera) aspirin 81 mg chewable tablet 81 mg PO BREAKFAST #0 tabs 06/20/24 09/18/24 Rx furosemide 40 mg tablet 40 mg PO BIDLX #60 tabs 06/20/24 Unknown Rx nicotine 21 mg/24 hr daily 21 mg transdermal DAILY #30 ea 06/20/24 Unknown Rx transdermal patch spironolactone 25 mg tablet 25 mg PO DAILY #30 tabs 06/20/24 Unknown Rx cilostazol 50 mg tablet 50 mg PO DAILY Cholesterol #60 tabs 09/09/24 09/18/24 Rx Farxiga 10 mg tablet 10 mg PO DAILY #90 TABLETS 09/13/24 09/18/24 Rx (dapagliflozin propanediol) omeprazole 20 mg capsule,delayed 20 mg PO DAILY #90 caps 09/13/24 09/18/24 Rx release clopidogrel 75 mg tablet 75 mg PO DAILY 09/18/24 09/18/24 History fluticasone propionate 50 2 spray intranasal DAILY PRN nasal 09/18/24 Unknown History mcg/actuation nasal congestion spray,suspension (Flonase Allergy Relief) insulin lispro protamine-lispro 20 - 35 unit subcut BID 09/18/24 09/17/24 History 100 unit/mL (50-50) subcutaneous pen (Humalog Mix 50-50 KwikPen) ondansetron 4 mg disintegrating 4 mg PO Q8H PRN Nausea 09/18/24 Unknown History tablet Allergy/AdvReac Type Severity Reaction Status Date / Time amoxicillin Allergy Angioedema Verified 09/18/24 09:57 lindane Allergy Rash Verified 09/18/24 09:57 Family History Father Asthma Alcoholism Arthritis Heart disease Hypertension High cholesterol CVA (cerebral vascular accident) Lung cancer Grandfather Myocardial infarction Surgical History S/P CABG x 4 History of hernia repair History of carotid endarterectomy (01/06/14) H/O coronary artery bypass surgery (2006) History of left heart catheterization (06/11/18) Social History Smoking Status: Heavy Smoker (>10/day) Tobacco: How many years used: 45 Electronic Cigarette Use: not used second hand exposure: Yes quit status: considering quitting alcohol intake: never substance use type: does not use caffeine: Yes Type: coffee Number of servings: 5 what type of physical activity do you participate in: none ROS ROS ED Constitutional Constitutional ED: Denies chills or fever(s) Eyes Eyes: Denies blurry vision or change in vision ENT ENT ED: Reports rhinorrhea and sore throat Cardiovascular Cardiovascular: Reports chest pain and palpitations Respiratory/Chest Respiratory/Chest: Reports cough and dyspnea Gastrointestinal Gastrointestinal: Denies nausea or vomiting Genitourinary Genitourinary ED: Denies dysuria or hematuria Musculoskeletal Musculoskeletal: Denies back pain or neck pain Integumentary Denies abscess or rash Neurologic Neurologic: Reports headache(s); Denies weakness Allergic/Immunologic Allergic/Immunologic ED: Denies mouth swelling or urticaria EXAM Physical Exam Const Vital Signs: 09/18/24 09:51 09/18/24 09:59 09/18/24 10:34 Temperature 96.9 F L Temperature Source Oral Pulse Rate 110 H Respiratory Rate 24 H Respiratory Effort Normal Non-Labored Respiratory Pattern Blood Pressure 97/82 H Blood Pressure Mean 87 Pulse Ox 95 Oxygen Delivery Method Room Air Room Air 09/18/24 10:44 09/18/24 10:54 09/18/24 12:05 Temperature Temperature Source Pulse Rate 101 H 97 98 Respiratory Rate 19 H 18 Respiratory Effort Respiratory Pattern Normal Blood Pressure 109/69 112/62 Blood Pressure Mean 78 Pulse Ox 93 Oxygen Delivery Method 09/18/24 12:07 09/18/24 13:00 09/18/24 13:33 Temperature Temperature Source Pulse Rate 97 101 H 95 Respiratory Rate 16 16 Respiratory Effort Respiratory Pattern Blood Pressure 131/85 H 136/74 H 118/77 Blood Pressure Mean 100 94 Pulse Ox 97 97 Oxygen Delivery Method Room Air Room Air 09/18/24 13:37 Temperature 98.2 F Temperature Source Pulse Rate 93 Respiratory Rate 15 Respiratory Effort Respiratory Pattern Blood Pressure 118/77 Blood Pressure Mean 90 Pulse Ox 98 Oxygen Delivery Method Positive well nourished and well developed General Appearance ED: well developed and NAD HEENT Reports moist mucous membranes normocephalic and atraumatic Neck supple and no JVD Chest Wall inspection of chest normal and palpation of chest normal Resp normal respiratory effort and clear to auscultation bilaterally Cardio regular rate and regular rhythm GI soft to palpation, non-tender and non-distended Extremity General Extremety ED: Yes edema; Negative for tenderness General Extremity: edema bilateral lower extremity Details: mild Neuro oriented x3, CN's II-XII intact bilaterally and no sensory deficits noted Sensorium / Orientation: awake and alert Motor Exam: strength 5/5 throughout Heart Score History: Slightly/Non-Suspicious ECG: Nonspecific Repolarization Age: >45 - <65 years Risk Factors: >/= 3 Risk Factors or History of CAD Troponin: >1 - <3 Normal Limit Score: 5 MDM MDM MDM Narrative Medical decision making narrative: Differential diagnosis includes but is not limited to cardiac dysrhythmia, cardiac ischemia, congestive heart failure, pneumonia, bronchitis, electrolyte abnormality, acute kidney injury, gastroesophageal reflux disease, and anxiety. EKG will be obtained to assess for cardiac dysrhythmia and cardiac ischemia. Chest x-ray will be obtained to assess for congestive heart failure and pneumonia. CBC will be obtained to assess for leukocytosis and anemia. Basic metabolic profile will be obtained to assess for electrolyte abnormality and renal function. High-sensitivity troponin will be obtained to assess for cardiac ischemia. 2-hour repeat high-sensitivity troponin will be obtained to assess for ongoing cardiac ischemia. BNP will be obtained to assess for congestive heart failure. History & Record Review Additional record(s) reviewed:: Prior outpatient record, Prior ED visit and Prior labs Lab Data Attestation: I reviewed the patient's lab results. Lab results narrative: CBC was reviewed and were within normal limits manage basic metabolic profile was reviewed. Glucose is mildly elevated at 184. Remainder is within normal limits. High-sensitivity troponin was reviewed and was elevated at 64. BNP was reviewed and was slightly elevated at 2552. This was slightly increased from previous result. 2-hour repeat high-sensitivity troponin was reviewed and was 62. Labs: Laboratory Results - last 24 hr 09/18/24 09/18/24 10:05 12:01 WBC 7.6 RBC 4.64 Hgb 14.8 Hct 44.4 MCV 95.7 H MCH 31.9 MCHC 33.3 RDW Std Deviation 45.1 H RDW Coeff of [place] 12.9 Plt Count 276 MPV 9.5 Immature Gran % (Auto) 0.300 Neut % (Auto) 61.9 Lymph % (Auto) 27.0 [place] % (Auto) 6.7 Eos % (Auto) 3.7 Baso % (Auto) 0.4 Absolute Neuts (auto) 4.7 Absolute Lymphs (auto) 2.05 Nucleated RBC % 0 Sodium 139 Potassium 5.0 Chloride 105 Carbon Dioxide 22.3 Anion Gap 12 BUN 17 Creatinine 1.01 Estim Creat Clear Calc 78.70 Est GFR (MDRD) Non-Af 83 BUN/Creatinine Ratio 16.5 Glucose 184 H Calcium 9.3 Troponin T High Sens 64 H* D Troponin T Hi Sens 2 Hr 62 H* NT pro BNP II 2552 H Radiography Diagnostic Testing: Clinical Impression(s) from Imaging Studies Chest X-Ray 09/18/24 10:26 IMPRESSION: No Acute Findings. Reading Location: [facility] Portable 1 view chest x-ray was obtained. On my independent interpretation, lung cardenas are clear. There is normal cardiac silhouette. Bony thorax is normal. There is no acute process noted. Radiologist also interpreted the x-ray and agrees. EKG Initial EKG: Attestation: I personally reviewed and interpreted this EKG as follows: Interpretation: Sinus Tachycardia (103) and Non-Specific ST Changes Comments: EKG was obtained. On my independent interpretation, it showed a sinus tachycardia with a rate of 103. HI interval, QRS interval, and QTc intervals were all normal. [place] was normal. There are nonspecific ST-T wave changes. Prior EKG tracings: available for review Prior: Unchanged (07/29/2024) Treatment and Re-Evaluation :: Patient was given aspirin and sublingual nitroglycerin here. Patient has improvement of his symptoms with 2 sublingual nitroglycerin tablets. Patient was placed on nitroglycerin paste. Patient was advised of his findings. Patient has a HEART score of 5. Patient is agreeable for admission to the hospital. Case was discussed with the hospitalist. He will admit the patient to his service. Patient and spouse understood and were agreeable with the plan. All questions were answered. Discharge Plan Triage Chief Complaint: Chest Pain ED Provider: Saúl Aguilar Dx/Rx/DC Orders Clinical Impression: Chest pain, Essential (primary) hypertension, Nicotine dependence, Type 2 diabetes mellitus, CHF (congestive heart failure) Prescriptions: No Action nitroglycerin 0.4 mg tablet, sublingual 0.4 mg Sublingual Q5M PRN (Reason: Cardiac/Chest Pain) Qty: 20 1RF alfuzosin 10 mg tablet extended release 24 hr 10 mg PO DAILY Rx Instructions: administer after the same meal each day isosorbide mononitrate 30 mg tablet extended release 24 hr See Rx Instructions .ROUTE .COMPLEX Qty: 90 3RF Dose Instruction: TAKE 1 TABLET BY MOUTH EVERY DAY Rx Instructions: TAKE 1 TABLET BY MOUTH EVERY DAY (DME) Handicap placard See Rx Instructions .Route .MEDSUPPLY Qty: 1 0RF Rx Instructions: Due to COPD, unable to walk 50 yards without assistance, duration 5 years. (DME) pen needle, diabetic [Comfort EZ Pen [place]] 31 gauge x 5/16" needle See Rx Instructions .Route Qty: 100 3RF Rx Instructions: As directed clopidogrel 75 mg tablet 75 mg PO DAILY ondansetron 4 mg tablet,disintegrating 4 mg PO Q8H PRN (Reason: Nausea) fluticasone propionate [Flonase Allergy Relief] 50 mcg/actuation spray,suspension 2 spray intranasal DAILY PRN (Reason: nasal congestion) Rx Instructions: administer into each nostril Humalog Mix 50-50 KwikPen 100 unit/mL (50-50) insulin pen 20 - 35 unit SC BID Patient Comments: pt based on sliding scale Rx Instructions: 9 pm: eat a meal, take 20 units insulin 1 am: eat a meal during work break 8 am: eat a meal take 20 units insulin metformin 1,000 mg tablet 1,000 mg PO BID losartan 25 mg tablet 25 mg PO DAILY albuterol sulfate 90 mcg/actuation HFA aerosol inhaler 2 puff inhalation Q4H PRN (Reason: shortness of breath or wheezing) atenolol 50 mg tablet 50 mg PO DAILY ezetimibe 10 mg tablet 10 mg PO DAILY insulin glargine [Lantus Solostar U-100 Insulin] 100 unit/mL (3 mL) insulin pen 20 unit subcut DAILY Dulera 100-5 mcg/actuation HFA aerosol inhaler 2 puff inhalation BID furosemide 40 mg Tablet 40 mg PO BIDLX Qty: 60 0RF spironolactone 25 mg Tablet 25 mg PO DAILY Qty: 30 0RF Patient Comments: PT UNSURE IF HE TAKES THIS MEDICATION, nicotine 21 mg/24 hr Patch 24 Hour 21 mg transdermal DAILY Qty: 30 0RF aspirin 81 mg Tablet,Chewable 81 mg PO BREAKFAST Qty: 0 0RF (DME) FreeStyle Test Strip See Rx Instructions .ROUTE .MEDSUPPLY Qty: 50 11RF Rx Instructions: check blood glucose daily (DME) blood-glucose meter [FreeStyle System Kit] Kit See Rx Instructions .ROUTE .MEDSUPPLY Qty: 1 0RF Rx Instructions: check blood glucose daily for type 2 DM (DME) lancets [FreeStyle Lancets] 28 gauge misc See Rx Instructions .ROUTE .MEDSUPPLY Qty: 50 11RF Rx Instructions: Check blood glucose daily for type 2 DM (DME) pen needle, diabetic [1st Tier Unifine Pentips Plus] 31 gauge x 3/16" needle See Rx Instructions .ROUTE .MEDSUPPLY Qty: 100 1RF Rx Instructions: use with lantus nightly buspirone 5 mg tablet 5 mg PO BID Qty: 180 1RF Patient Comments: pt takes once a day Repatha SureClick 140 mg/mL pen injector 140 mg subcut Q2W Qty: 6 3RF cilostazol 50 mg tablet 50 mg PO DAILY Qty: 60 5RF omeprazole 20 mg capsule,delayed release(DR/EC) 20 mg PO DAILY Qty: 90 1RF dapagliflozin propanediol [Farxiga] 10 mg tablet 10 mg PO DAILY Qty: 90 1RF Primary Care Provider: Ant Nuñez Referrals: Ant Nuñez, [Primary Care Provider] - Print Language: Icelandic Disposition Disposition: Acute Care Hospital [facility]
--- NOTE | 2024-09-18 10:26 | RAD_ITS ---
PROCEDURE: CHEST 1 VIEW (PORTABLE) 09/18/2024 REASON FOR EXAM: CHEST PAIN TECHNIQUE: Frontal view of the chest. COMPARISON: Chest radiograph 07/29/2024. FINDINGS: Hardware: Prior median sternotomy and CABG. Heart: The heart size is normal. Lungs: Bibasilar atelectasis. No focal consolidation, pleural effusion or pneumothorax. Bones: Degenerative changes are identified within the thoracic spine. RAD/Chest 1 View (Portable) IMPRESSION: No Acute Findings. Reading Location: [id number]
--- NOTE | 2024-09-18 10:26 | EKG12_ITS ---
Test Reason : CP Blood Pressure : */* mmHG Vent. Rate : 103 BPM Atrial Rate : 103 BPM P-R Int : 150 ms QRS Dur : 90 ms QT Int : 318 ms P-R-T Axes : 58 24 157 degrees QTcB Int : [address] & T wave abnormality, consider inferolateral ischemia Abnormal ECG Confirmed by AURELIANO WESTBROOK, JULIO CÉSAR ([id number]), graphic editor LISS JARVIS ([id number]) on 09/20/2024 7:44:44 AM Referred By: ABDIAS Confirmed By: JULIO CÉSAR BEDOYA MD
[2024-09-18] MEDS: Aspirin 81 MG TAB.CHEW 324 MG PO (10:42)
[2024-09-18] MEDS: Nitroglycerin SL (ED/IMG/CATH) 0.4 MG TABLET SL (10:44)
[2024-09-18 10:45] LABS: Absolute Lymphocyte Count 2.05 X10^3/uL (0.83-4.51); Absolute Neutrophil Count 4.7 X10^3/uL (2.0-7.7); Basophil# 0.03 X10^3/uL; Basophil% 0.4 % (0-1); Eosinophil# 0.28 X10^3/uL; Eosinophils% 3.7 % (0-5); Hematocrit 44.4 % (40-54); Hemoglobin 14.8 g/dL (13.0-16.5); Lymphocyte # 2.05 X10^3/ul (0.83-4.51); Mean Corp Hgb Conc 33.3 g/dL (32-36); Mean Corpuscular Hgb 31.9 pg (27.0-32.0); Mean Corpuscular Volume 95.7 fL (80-94); Mean Platelet Vol. 9.5 fl (6.2-12.0); Monocyte# 0.51 X10^3/uL; Monocyte% 6.7 % (0-10); NRBC Flagged by Analyzer 0 % (0-5); Neutrophil # 4.71 X10^3/uL (2.7-7.7); Neutrophil % 61.9 % (47-70); Platelet Count 276 K/mm3 (150-450); RBC Distribution Width CV 12.9 % (11.6-14.6); RBC Distribution Width SD 45.1 fl (35.1-43.9); Red Blood Count 4.64 M/mm3 (4.6-6.2); White Blood Count 7.6 K/mm3 (4.4-11.0)
--- OUTSIDE RECORDS SUMMARY | 2024-09-18 10:50 | XMS RPT_ITS | CCD ---
Author Organization [facility] Care Team Providers Care Marine Engineer Cpvec Name Role Phone Unavailable Primary Care Provider Unavailmague e Dr. Xiang Rogers Primary Care Provider [phone] Dr. Xiang Rogers Attending Provider [phone] Dr. Xiang Rogers Referring Provider [phone] Dr. Xiang Rogers Primary Care Provider [phone] Dr. Xiang Rogers Attending Provider [phone] Dr. Xiang Rogers Referring Provider [phone] Xiang Rogers DO Primary Care Provider YAMILKA PAREKH Attending Unavailable XIANG ROGERS Primary Care Unavailable YAMILKA PAREKH Referring Unavailable XIANG ROGERS Primary Care Unavailable YAMILKA PAREKH Referring Unavailable XIANG ROGERS Primary Care Unavailable YAMILKA PAREKH Attending Unavailable XIANG ROGERS Primary Care Unavailable YAMILKA PAREKH Attending Unavailable YAMILKA PAREKH Referring Unavailable XIANG ROGERS Primary Care Unavailable Dr. Xiang Rogers Primary Care Provider [phone] Dr. Xiang Rogers Attending Provider [phone] Dr. Xiang Rogers Referring Provider [phone] aGldino Baird Attending Provider Unavailable Abby FOREST FIRE EQUIPMENT OPERATOR, FOREST FIRE EQUIPMENT OPERATOR-C Kimberli Attending Provider Abby FOREST FIRE EQUIPMENT OPERATOR, FOREST FIRE EQUIPMENT OPERATOR-C Kimberli Referring Provider Dr. Xiang Rogers Primary Care Provider [phone] Dr. Xiang Rogers Attending Provider [phone] Dr. Xiang Rogers Referring Provider [phone] Dr. Maribell Moura Emergency Provider Elizabeth, Dr. Flori Jones Admit Provider Elizabeth, Dr. Flori Jones Other Provider Fareed, Dr. Blackwood Other Provider Dr. Steve Fields Attending Provider Unavailable Diamond, Dr. Wilson Other Provider Unavailable Dr. Calos Quinn Attending Provider Roof FOREST FIRE EQUIPMENT OPERATOR, FOREST FIRE EQUIPMENT OPERATOR-C Dean Carson Attending Provider Xiang Rogers DO Primary Care Provider Dr. Xiang Rogers Primary Care Provider Dr. Xiang Rogers Attending Provider Dr. Xiang Rogers Referring Provider Roof FOREST FIRE EQUIPMENT OPERATOR, FOREST FIRE EQUIPMENT OPERATOR-C Dean Carson Attending Provider Dr. Xiang Rogers Primary Care Provider Dr. Xiang Rogers Referring Provider Dr. Xiang Rogers Attending Provider Dr. Xiang Rogers Primary Care Provider Dr. Xiang Rogers Referring Provider [facility] FOREST FIRE EQUIPMENT OPERATOR, FOREST FIRE EQUIPMENT OPERATOR-C Kimberli Attending Provider Xiang Rogers DO Primary Care Provider Dr. Xiang Rogers DO Primary Care Provider Dr. Xiang Rogers DO Referring Provider Lubna Calohun Attending Provider Dr. Xiang Rogers DO Attending Provider Dr. Jose Small DPM Attending Provider Dr. Jose Small DPM Referring Provider Dr. Saúl Flowers MD Attending Provider Lubna Calhoun Referring Provider Magaly Denise Attending Provider Dr. Saúl Flowers MD Referring Provider Dr. Saúl Flowers MD Other Provider Trinidad DEVINE, Magaly Nelson Referring Provider Kai WESTBROOK, Dr. Live Attending Provider Dr. Saúl Aguilar DO Attending Provider Lauren SANDRA, Dr. Hays Emergency Provider Kai WESTBROOK, Dr. Live Other Provider Joaquin SANDRA, Dr. Xiang Will Primary Care Provider Dr. Xiang Rogers DO Referring Provider Lubna Calhoun Attending Provider [phone] Lauren SANDRA, Dr. Hays Attending Provider Dr. Saúl Aguilar DO Emergency Provider Lubna Calhoun Referring Provider [phone] Saúl Flowers MD Attending Provider [phone] Dr. Calos Quinn MD Other Provider Magaly Denise Attending Provider Devon WESTBROOK, Dr. Escoto Emergency Provider de Odilon SANDRA, Dr. Wilson Admit Provider Unavail able Esteban DO, Dr. Wilson Other Provider Unavail able Shona WESTBROOK, Dr. Muñiz Other Provider Unavailable Jet WESTBROOK, Dr. Bingham Other Provider Fareed WESTBROOK, Dr. Blackwood Other Provider Quinn WESTBROOK, Dr. Vazquez Other Provider Uriel WESTBROOK, Dr. Jane Other Provider Radha WESTBROOK, Dr. Garcia Other Provider Linda WESTBROOK, Dr. Horvath Other Provider Martine WESTBROOK, Dr. Barone Other Provider Laurita WESTBROOK, Dr. Lyn Other Provider Jean BELL-C, Dean Carson Other Provider Magaly Denise Other Provider Avery Jones Other Provider Bhaskar WESTBROOK, Dr. Triston Shoemaker Other Provider New WESTBROOK, Dr. Thompson Other Provider Zeb SANDRA, Dr. Ann Attending Provider Esteban DO, Dr. Wilson Attending Provider [facility] Linda WESTBROOK, Dr. Horvath Attending Provider New WESTBROOK, Dr. Thompson Attending Provider Kai WESTBROOK, Dr. Live Attending Provider Zeb SANDRA, Dr. Ann Other Provider Ronit Santos Attending Provider Dr. Lawson Castellon DO Attending Provider [phone] Dr. Lawson Castellon DO Emergency Provider Joaquin SANDRA, Dr. Xiang Will Attending Provider Xiang Rogers Primary Care Unavailable Lubna Manley Referring Unavailable Lubna Manley Attending Unavailable Xiang Rogers R Primary Care Unavailable Lawson Castellon Attending Unavailable Steve Esteban Attending Unavailable Steve Esteban Consulting Unavailable Steve Esteban Admitting Unavailable Xiang Rogers R Primary Care Unavailable Triston Muro Consulting Unavailable Xiang Rogers R Primary Care Unavailable Ronit Galvez NP Attending Unavailable Ronit Galvez NP Referring Unavailable Xiang Rogers R Primary Care Unavailable Xiang Rogers Attending Unavailable Xiang Rogers Referring Unavailable Steve Esteban Consulting Unavailable Steve Esteban Admitting Unavailable Seth Carrington Attending Unavailable Xiang Rogers R Primary Care Unavailable Amrmanjit, Renemed Consulting Unavailable Mostafwojciech, Otilia Consulting Unavailable Fareed, Merced Consulting Unavailable George Ball Consulting Unavailable Calos Quinn Consulting Unavailable Buck Trevino Consulting Unavailable Jose Garcia Consulting Unavailable Nagajothi, Nagapradee Consulting Unavailabl e Satti, Abisai Consulting Unavailable [place], Riki Consulting Unavailable Roof FOREST FIRE EQUIPMENT OPERATOR, Dean H Consulting Unavailable Trinidad DEVINE, Magaly Nelson Consulting Unavail able Avery Valderrama Consulting Unavailable Triston Muro Consulting Unavailable Donna Wolff Consulting Unavailable Brown, Xiang R Primary Care Unavailable Magaly Denise Referring Unavail able Trinidad DEVINE, Magaly Nelson Attending Unavail able Brown, Xiang R Primary Care Unavailable Jose Small Referring Unavailable Jose Small Attending Unavailable Alexandru Mckeon Attending Unavailabl emily Nagel, Ahmed Consulting Unavailable Otilia Chaudhary Consulting Unavailable Merced Guerrier Consulting Unavailable George Ball Consulting Unavailable Calos Quinn Consulting Unavailable Buck Trevino Consulting Unavailable Jose Garcia Consulting Unavailable Linda, Alexandru Consulting Unavailabl e Satti, Abisai Consulting Unavailable [place], Riki Consulting Unavailable Roof FOREST FIRE EQUIPMENT OPERATOR, Dean H Consulting Unavailable Magaly Denise Consulting Unavail able Avery Valderrama Consulting Unavailable Donna Wolff Consulting Unavailable Donna Wolff Attending Unavailable Brown, Xiang R Primary Care Unavailable Saúl Aguilar Attending Unavailable Brown, Xiang R Primary Care Unavailable Lubna Manley Referring Unavailable Lubna Manley Attending Unavailable Brown, Xiang R Primary Care Unavailable Saúl Flowers Attending Unavailable Saúl Flowers Referring Unavailable Brown, Xiang R Primary Care Unavailable Roof FOREST FIRE EQUIPMENT OPERATOR, Dean Carson Attending Unavailable Roof FOREST FIRE EQUIPMENT OPERATOR, Dean H Referring Unavailable Brown, Xiang R Primary Care Unavailable Abby FOREST FIRE EQUIPMENT OPERATOR, Kimberli Attending Unavailable Abby FOREST FIRE EQUIPMENT OPERATOR, Kimberli Referring Unavailable Brown, Xiang R Primary Care Unavailable Lenny FOREST FIRE EQUIPMENT OPERATOR, Ronit Referring Unavailable eLnny FOREST FIRE EQUIPMENT OPERATOR, Ronit Attending Unavailable Brown, Xiang R Primary Care Unavailable Saúl Flowers Attending Unavailable Brown, Xiang R Primary Care Unavailable Brown, Xiang R Referring Unavailable Magaly Denise Attending Unavail able Lubna Manley Attending Unavailable Brown, Xiang R Referring Unavailable Brown, Xiang R Primary Care Unavailable Brown, Xiang R Primary Care Unavailable Brown, Xiang R Attending Unavailable Brown, Xiang R Referring Unavailable Brown, Xiang R Primary Care Unavailable Brown, Xiang R Referring Unavailable Lubna Manley Attending Unavailable Calos Quinn Attending Unavailable Seth Carrington Consulting Unavailable Kai, Calos Attending Unavailable Brown, Xiang R Primary Care Unavailable Brown, Xiang R Primary Care Unavailable Brown, Xiang R Referring Unavailable Manley, Lubna Attending Unavailable Brown, Xiang R Primary Care Unavailable Brown, Xiang R Referring Unavailable Brown, Xiang R Attending Unavailable Brown, Xiang R Attending Unavailable Brown, Xiang R Primary Care Unavailable Brown, Xiang R Referring Unavailable Brown, Xiang R Primary Care Unavailable Manley, Lubna Attending Unavailable Brown, Xiang R Referring Unavailable Brown, Xiang R Primary Care Unavailable Brown, Xiang R Referring Unavailable Lenny FOREST FIRE EQUIPMENT OPERATOR, Ronit Attending Unavailable Brown, Xiang R Primary Care Unavailable Brown, Xiang R Attending Unavailable Brown, Xiang R Referring Unavailable Brown, Xiang R Primary Care Unavailable Brown, Xiang R Referring Unavailable Manley, Lubna Attending Unavailable Brown, Xiang R Primary Care Unavailable Brown, Xiang R Referring Unavailable Manley, Lubna Attending Unavailable Brown, Xiang R Primary Care Unavailable Brown, Xiang R Referring Unavailable Lionel, Saúl Attending Unavailable Brown, Xiang R Primary Care Unavailable Brown, Xiang R Referring Unavailable Lenny FOREST FIRE EQUIPMENT OPERATOR, Ronit Attending Unavailable Manley, Lubna Referring Unavailable Galt, Saúl Attending Unavailable Brown, Xiang R Primary Care Unavailable Alexandru Mckeon Attending Unavailabl e Brown, Xiang R Primary Care Unavailable Brown, Xiang R Primary Care Unavailable Galt, Saúl Attending Unavailable Brown, Xiang R Primary Care Unavailable Kai, [place] Attending Unavailable Brown, Xiang R Primary Care Unavailable Galt, Saúl Attending Unavailable Jose Small Referring Unavailable Brown, Xiang R Primary Care Unavailable Galt, Saúl Referring Unavailable Galt, Saúl Attending Unavailable Galt, Saúl Consulting Unavailable Seth Carrington Attending Unavailable Brown, Xiang R Primary Care Unavailable Kai, Calos Consulting Unavailable Magaly Denise Attending Unavail able Manley, Lubna Referring Unavailable Manley, Lubna Attending Unavailable Brown, Xiang R Primary Care Unavailable Allergies Allergy Classification Reported Allergen(s) Allergy Type Date of Onset Reaction(s) Facility (8 sources) Etodolac; Translations: [ETODOLAC] Drug Allergy 03-12-2005 GI Upset [facility] (20 sources) Amoxicillin; Translations: [AMOXICILLIN] Drug Allergy 07-18-2021 Angioedema [facility] (20 sources) Lindane; Translations: [LINDANE] Drug Allergy 07-18-2021 Rash [facility] (1 source) Amoxicillin Drug Allergy 08-02-[address] [facility] (1 source) Lindane Drug Allergy 08-02-[address] [facility] (1 source) Unable to Assess Drug allergy (disorder) 06-17-[address] [facility] Medications Current Medications Medication Drug Class(es) Dates Sig (Normalized) Sig (Original) [id number] 200 actuat albuterol 0.09 mg/actuat metered dose inhaler (20 sources) beta2-Adrenergic Agonist Start: 06-28-2024 Start: 04-02-2021 take 1 puff(s) by in halation every four hours as needed Albuterol Sulfate Active 2 PUFF INHALATION EVERY 4 HOURS NEEDED April 02, 2021 10:46am Start: 04-12-2019 End: 06-28-2024 Start: 04-12-2019 End: 06-17-2024 Albuterol Sulfate 90 mcg/act uation HFA aerosol inhaler Active 2 NMA INHALATION EVERY 4 HOURS NEEDED as needed for Wheezing June 17, 2024 10:27am Start: 04-12-2019 End: 02-18-2023 take 1 puff(s) by inhalation every four hours as needed Albuterol Sulfate Discontinued 2 PUFF INHALATION EVERY 4 HOURS NEEDED August 13, 2022 7:28am February 18, 2023 1:26pm Start: 08-19-2017 End: 08-19-2017 Start: 08-19-2017 End: 08-19-2017 Albuterol Sulfate (Ventolin Hfa) 90 mcg/actuation HFA aerosol inhaler Discontinued 2 NMA INHALATION Q4H as needed August 19, 2017 12:00am August 19, 2017 1:56pm Start: 08-19-2017 End: 08-19-2017 take 1 puff(s) by inhalation every four hours Albuterol Sulfate (Ventolin Hfa) 90 mcg/actuation HFA aerosol inhaler Discontinued 2 PUFF INHALATION Q4H August 18, 2017 11:00pm August 19, 2017 12:56pm Start: 09-17-2015 take 2 puff(s) by in halation every four hours as needed for wheezing albuterol HFA (VENTOLIN HFA) 90 mcg/actuation inhaler Inhale 2 Puffs as instructed every 4 hours as needed for Wheezing/Shortness of Breath. 1 Inhaler 01/04/2018 Active Start: 06-11-2014 End: 07-28-2017 take 1 puff(s) by inhalation every four hours as needed Albuterol Sulfate Discontinued 1 - 2 PUFF INHALATION EVERY 4 HOURS NEEDED June 11, 2014 6:49pm July 28, 2017 1:33pm Start: 06-11-2014 End: 07-28-2017 Start: 06-11-2014 End: 07-28-2017 Albuterol Sulfate 1 INHALER inhaler Discontinued 1 - 2 NMA INHALATION EVERY 4 HOURS NEEDED as needed for Wheezing June 11, 2014 1:00am July 28, 2017 1:33pm Start: 06-11-2014 End: 07-28-2017 take 1 puff(s) by inhalation every four hours as needed Albuterol Sulfate Discontinued 1 - 2 PUFF INHALATION EVERY 4 HOURS NEEDED June 11, 2014 12:00am July 28, 2017 12:33pm Comment on above: Inhale 2 Puffs as in structed every 4 hours as needed for Wheezing/Shortness of Breath. aspirin 81 mg chewable tablet (20 sources) Platelet Aggregation Inhibitor, Nonsteroidal Anti-inflammatory Drug Start: 04-08-2017 End: 07-12-2024 aspirin 325 mg t ablet Take 81 mg by mouth once daily. Active take 1 tablet by mouth once jenny y aspirin 325 mg tablet Take 325 mg by mouth once daily. 0 Active Comment on above: Take 325 mg by mouth once daily. Take 81 mg by mouth once daily. benzonatate 100 mg oral capsule (8 sources) Non-narcotic Antitussive Start: take 1 capsule by mouth every eight hours as needed benzonatate (TESSALON PERLES) 100 mg capsule Take 1 capsule by mouth three times a day as needed for cough. 20 capsule 12/31/2023 Active Start: 11-28-2019 take 2 capsules by m outh every eight hours as needed for cough and cough benzonatate (TESSALON PERLE) 100 mg capsule Indications: Cough Take 2 capsules by mouth three times daily as needed. 30 capsule 11/28/2019 Active Comment on above: Take 2 capsules by m outh three times daily as needed. Blood-Glucose Meter (Freestyle System Kit) kit (20 sources) Start: 04-02-2021 Blood-Glucose Meter (Freestyle System Kit) kit Active 0 .ROUTE .MEDSUPPLY 1 April 02, 2021 9:46am check blood glucose daily for type 2 DM Start: 04-02-2021 Blood-Glucose Meter (Freestyle System Kit) kit Active 0 .ROUTE .MEDSUPPLY 1 April 02, 2021 10:46am check blood glucose daily for type 2 DM Start: 09-05-2020 End: 04-02-2021 Blood-Glucose Meter (Freesty le System Kit) kit Discontinued 0 .ROUTE .MEDSUPPLY 1 September 05, 2020 3:02pm April 02, 2021 9:48am check blood glucose daily for type 2 DM Start: 09-05-2020 End: 04-02-2021 Blood-Glucose Meter (Freesty le System Kit) kit Discontinued 0 .ROUTE .MEDSUPPLY 1 September 05, 2020 4:02pm April 02, 2021 10:48am check blood glucose daily for type 2 DM Start: 06-10-2019 End: 09-05-2020 Blood-Glucose Meter (Freesty le System Kit) kit Discontinued 0 .ROUTE .MEDSUPPLY 1 June 10, 2019 3:07pm September 05, 2020 4:02pm check blood glucose daily for type 2 DM Start: 06-10-2019 End: 09-05-2020 Blood-Glucose Meter (Freesty le System Kit) kit Discontinued 0 .ROUTE .MEDSUPPLY June 10, 2019 12:00am September 05, 2020 3:02pm check blood glucose daily for type 2 DM Start: 06-10-2019 End: 09-05-2020 Blood-Glucose Meter (Freesty le System Kit) kit Discontinued 0 .ROUTE .MEDSUPPLY 1 June 10, 2019 1:00am September 05, 2020 4:02pm check blood glucose daily for type 2 DM Blood-Glucose Meter monitoring kit (7 sources) Start: 01-21-2016 Blood-Glucose Meter monitoring kit Indications: Uncontrolled type 2 diabetes mellitus without complication, without long-term current use of insulin Glucose Meter of Choice - Kit - Dx: Type 2 DM - Uncontrolled E11.65 1 Each 0 01/21/2016 Active Comment on above: Glucose Meter of Cho ice - Kit - Dx: Type 2 DM - Uncontrolled E11.65 cilostazol 50 mg oral tablet (6 sources) Phosphodiesterase 3 Inhibitor Start: 09-09-2023 End: 09-09-2024 DOCOSAHEXANOIC ACID/EPA (FISH OIL ORAL) (7 sources) DOCOSAHEXANOIC ACID/EPA (FISH OIL ORAL) Take by mouth. Active DOCOSAHEXANOIC A ANNA MARIE/EPA (FISH OIL ORAL) Take by mouth. 0 Active Comment on above: Take by mouth. 1 ml evolocumab 140 mg/ml au to-injector (6 sources) PCSK9 Inhibitor Start: 01-04-2024 End: 05-09-2024 Start: 07-28-2023 End: 11-03-2023 ezetimibe 10 mg oral tablet (3 sources) Dietary Cholesterol Absorption Inhibitor Start: 06-17-2024 Start: 11-03-2023 End: 05-10-2024 furosemide 40 mg oral tablet (1 source) Loop Diuretic Start: 06-20-2024 Handicap placard (1 source) Start: 07-22-[address] Active 0 .Route .MEDSUPPLY July 22, 2023 12:00am Due to COPD, unable to walk 50 yards without assistance, duration 5 years. 3 ml insulin glargine 100 unt/ml pen injector (20 sources) Insulin Analog Start: 07-22-2023 End: 07-12-2024 Start: 07-22-2023 Insulin Glargi ne 100 unit/mL (3 mL) insulin pen Active 20 U SC ONCE July 22, 2023 9:51am at Bedtime Start: 04-09-2022 End: 04-15-2023 Start: 04-09-2022 End: 04-15-2023 Insulin Glargine 100 unit/mL (3 mL) insulin pen Discontinued 20 U SC ONCE January 13, 2023 9:40am April 15, 2023 10:29am at Bedtime Start: 05-20-2019 End: 01-24-2020 Start: 05-20-2019 End: 01-24-2020 Insulin Glargine (Lantus Carrol ostar U-100 Insulin) 100 unit/mL (3 mL) insulin pen Discontinued 10 U SC DAILY May 20, 2019 1:00January 24, 2020 3:00pm insulin NPH hum/reg insulin hm (HUMULIN 70/30 U-100 KWIKPEN SUBCUTANEOUS) (7 sources) inject 22 [IU] by subcutaneous injection once daily before dinner insulin NPH hum/reg insulin hm (HUMULIN 70/30 U-100 KWIKPEN SUBCUTANEOUS) Inject 22 Units subcutaneously daily before dinner. Active inject 22 [IU] by sifuentes bcutaneous injection once daily before dinner insulin NPH hum/reg insulin hm (HUMULIN 70/30 U-100 KWIKPEN SUBCUTANEOUS) Inject 22 Units subcutaneously daily before dinner. 0 Active Comment on above: Inject 22 Units subc utaneously daily before dinner. losartan potassium 25 mg ora l tablet (20 sources) Angiotensin 2 Receptor Devon Start: 06-17-2024 Start: 06-12-2018 End: 05-10-2024 Start: 07-14-2017 End: 06-12-2018 Start: 02-07-2017 End: 07-14-2017 Comment on above: Take 50 mg by mouth once daily. metFORMIN hydrochloride 1000 mg oral tablet (20 sources) Biguanide Start: 05-20-2019 End: 07-12-2024 Start: 11-04-2018 End: 05-20-2019 24 hr metoprolol succinate 2 5 mg extended release oral tablet (20 sources) beta-Adrenergic Devon Start: 06-20-2024 Start: 07-14-2013 End: 07-28-2017 Mometasone-Formoterol (Duler a) 100-5 mcg/actuation HFA aerosol inhaler (11 sources) Start: 06-17-2024 Mometasone-For moterol (Dulera) 100-5 mcg/actuation HFA aerosol inhaler Active 2 NMA INHALATION TWICE A DAY June 17, 2024 10:27am Start: 02-18-2023 End: 06-17-2024 Mometasone-Formoterol (Duler a) 100-5 mcg/actuation HFA aerosol inhaler Discontinued 2 NMA INHALATION TWICE A DAY February 18, 2023 2:26pm June 17, 2024 10:55am Start: 02-18-2023 take 1 puff(s) by in halation twice daily Mometasone-Formoterol (Dulera) 100-5 mcg/actuation HFA aerosol inhaler Active 2 PUFF INHALATION TWICE A DAY February 18, 2023 1:26pm Start: 08-14-2022 End: 02-18-2023 Mometasone-Formoterol (Duler a) 100-5 mcg/actuation HFA aerosol inhaler Discontinued 2 NMA INHALATION TWICE A DAY August 14, 2022 12:00am February 18, 2023 2:26pm Start: 08-14-2022 End: 02-18-2023 take 1 puff(s) by inhalation twice daily Mometasone-Formoterol (Dulera) 100-5 mcg/actuation HFA aerosol inhaler Discontinued 2 PUFF INHALATION TWICE A DAY August 13, 2022 11:00pm February 18, 2023 1:26pm mupirocin 0.02 mg/mg topical ointment (7 sources) RNA Synthetase Inhibitor Antibacterial Start: 06-15-2017 mupirocin (BACTR OBAN) 2 % ointment Indications: Boil of trunk Apply 1 application to affected area three times daily. Location: back 30 g 06/15/2017 Active Comment on above: Apply 1 application to affected area three times daily. Location: back 24 hr nicotine 0.875 mg/hr transdermal system (20 sources) Cholinergic Nicotinic Agonist Start: 06-20-2024 Start: 06-12-2018 End: 08-10-2018 Start: 06-12-2018 End: 08-10-2018 apply 21 mg transdermal route once daily Nicotine 21 MG patch Discontinued 21 mg TRANSDERM. DAILY June 12, 2018 1:00am August 10, 2018 4:07pm Start: 07-14-2017 End: 07-28-2017 Start: 07-14-2017 End: 07-28-2017 apply 14 mg transdermal route once daily as needed Nicotine 14 MG patch Discontinued 14 mg TRANSDERM. DAILY NEEDED as needed for nicotine cravings July 14, 2017 12:00am July 28, 2017 1:36pm apply 1 dose transde rmal route every twenty-four hours nicotine (NICODERM CQ) 21 mg/24 hr Apply 1 Patch as directed every 24 hours. Active Comment on above: Apply 1 Patch as dir ected every 24 hours. Nirmatrelvir-Ritonavir (Paxlovid (Eua)) 150 mg x 2- 100 mg tablet (1 source) Start: 07-18-2021 Nirmatrelvir-Ritonavir (Paxlovid (Eua)) 150 mg x 2- 100 mg tablet Active 0 PO .COMPLEX July 18, 2021 11:59pm take TWO 150 mg tablets of nirmatrelvir with ONE 100 mg tablet of ritonavir twice daily for 5 days nitroglycerin 0.4 mg sublingual tablet (20 sources) Nitrate Vasodilator Start: 06-12-2018 End: 04-24-2022 Comment on above: Dissolve 0.4 mg unde r the tongue every 5 minutes as needed. ondansetron 4 mg disintegrating oral tablet (4 sources) Serotonin-3 Receptor Antagonist Start: 08-23-2023 End: 10-28-2023 spironolactone 25 mg oral tablet (1 source) Aldosterone Antagonist Start: 06-20-2024 (18 sources) Start: 06-18-2024 Start: 06-17-2024 End: 07-12-2024 Start: 10-28-2023 Start: 07-22-2023 Start: 02-18-2023 End: 06-17-2024 Start: 08-14-2022 End: 02-18-2023 Start: 04-02-2021 Start: 04-02-2021 Start: 04-02-2021 Start: 04-02-2021 Start: 09-05-2020 End: 04-02-2021 Start: 08-06-2020 End: 04-02-2021 Start: 06-10-2019 End: 09-05-2020 Start: 06-10-2019 End: 04-02-2021 Start: 06-01-2019 End: 08-06-2020 Start: 07-14-2017 End: 07-29-2017 Start: 07-10-2017 End: 07-28-2017 Completed/Discontinued Medications Medication Drug Class(es) Dates Sig (Normalized) Sig (Original) acetaminophen 325 mg / HYDROcodone bitartrate 5 mg oral tablet (19 sources) Opioid Agonist Start: 04-25-2023 End: 10-28-2023 Start: 04-25-2023 End: 10-28-2023 Hydrocodone-Acetaminophen 5- 325 mg tablet Discontinued 1 {tbl} PO EVERY 6 HOURS NEEDED as needed for Pain 10 April 25, 2023 October 28, 2023 9:51am Start: 04-25-2023 take 1 tablet by dino th every six hours as needed Hydrocodone-Acetaminophen Active 1 TABLE T PO EVERY 6 HOURS NEEDED 10 April 25, 2023 Start: 05-21-2022 End: 01-26-2023 Start: 05-21-2022 End: 01-26-2023 Hydrocodone-Acetaminophen 5- 325 mg tablet Discontinued 1 {tbl} PO EVERY 6 HOURS NEEDED as needed for Pain 12 January 13, 2023 January 26, 2023 3:35pm Start: 05-21-2022 End: 01-26-2023 take 1 tablet by mouth every six hours as needed Hydrocodone-Acetaminophen Discontinued 1 TABLET PO EVERY 6 HOURS NEEDED 12 January 13, 2023 January 26, 2023 2:35pm 24 hr alfuzosin hydrochlorid e 10 mg extended release oral tablet (20 sources) alpha-Adrenergic Devon Start: 08-19-2019 End: 01-26-2023 atenolol 50 mg oral tablet (20 sources) beta-Adrenergic Devon Start: 06-12-2018 End: 07-12-2024 Comment on above: Take 50 mg by mouth once daily. atorvastatin 40 mg oral tabl et (20 sources) HMG-CoA Reductase Inhibitor Start: 06-20-2024 End: 07-12-2024 Start: 06-02-2022 End: 07-12-2024 Start: 06-02-2022 End: 04-15-2023 take 1 tablet by mouth at bedtime Atorvastatin 80 mg tablet Active 80 mg PO AT BEDTIME April 15, 2023 10:36am Start: 06-12-2018 End: 06-02-2022 Comment on above: Take 40 mg by mouth once daily. azithromycin 500 mg oral tab let (20 sources) Macrolide Antimicrobial Start: 02-08-2020 End: 06-05-2020 Start: 01-24-2020 End: 02-08-2020 Start: 12-05-2019 End: 01-10-2020 Start: 12-05-2019 End: 01-10-2020 take 2-5 tablets by mouth once daily Azithromycin 250 mg tablet Discontinued 0 PO .COMPLEX December 05, 2019 12:00am January 10, 2020 1:56pm take 500 mg today (day 1), then 250 mg for 4 days (days 2-5) PO Budesonide-Formoterol (20 sources) Corticosteroid, beta2-Adrenergic Agonist Start: 2022 End: 08-14-2022 Start: 08-13-2022 End: 08-14-2022 Budesonide-Formoterol (Symbi darrian) 160-4.5 mcg/actuation HFA aerosol inhaler Discontinued 2 NMA INHALATION TWICE A DAY 10.2 August 13, 2022 8:28am August 14, 2022 8:50am Start: 08-13-2022 End: 08-14-2022 take 1 puff(s) by inhalation twice daily Budesonide-Formoterol (Symbicort) 160-4.5 mcg/actuation HFA aerosol inhaler Discontinued 2 PUFF INHALATION TWICE A DAY 10.2 August 13, 2022 7:28am August 14, 2022 7:50am Start: 11-01-2021 End: 08-13-2022 Start: 11-01-2021 End: 08-13-2022 Budesonide-Formoterol (Symbi darrian) 160-4.5 mcg/actuation HFA aerosol inhaler Discontinued 2 NMA INHALATION TWICE A DAY 10.2 November 01, 2021 8:08am August 13, 2022 8:28am Start: 11-01-2021 End: 08-13-2022 take 1 puff(s) by inhalation twice daily Budesonide-Formoterol (Symbicort) 160-4.5 mcg/actuation HFA aerosol inhaler Discontinued 2 PUFF INHALATION TWICE A DAY 10.2 November 01, 2021 7:08am August 13, 2022 7:28am Start: 11-01-2021 take 1 puff(s) by in halation twice daily Budesonide-Formoterol (Symbicort) 160-4.5 mcg/actuation HFA aerosol inhaler Active 2 PUFF INHALATION TWICE A DAY 10.2 November 01, 2021 7:08am Start: 11-01-2021 take 1 puff(s) by in halation twice daily Budesonide-Formoterol (Symbicort) 160-4.5 mcg/actuation HFA aerosol inhaler Active 2 PUFF INHALATION TWICE A DAY 10.2 November 01, 2021 8:08am Start: 12-28-2021 End: 11-01-2021 Start: 04-02-2021 End: 11-01-2021 Budesonide-Formoterol (Symbi darrian) 160-4.5 mcg/actuation HFA aerosol inhaler Discontinued 2 NMA INHALATION TWICE A DAY 10.2 April 02, 2021 10:47am November 01, 2021 8:09am Start: 04-02-2021 End: 11-01-2021 take 1 puff(s) by inhalation twice daily Budesonide-Formoterol (Symbicort) 160-4.5 mcg/actuation HFA aerosol inhaler Discontinued 2 PUFF INHALATION TWICE A DAY 10.2 April 02, 2021 9:47am November 01, 2021 7:09am Start: 04-02-2021 End: 11-01-2021 take 1 puff(s) by inhalation twice daily Budesonide-Formoterol (Symbicort) 160-4.5 mcg/actuation HFA aerosol inhaler Discontinued 2 PUFF INHALATION TWICE A DAY 10.2 April 02, 2021 10:47am November 01, 2021 8:09am Start: 04-02-2021 take 1 puff(s) by in halation twice daily Budesonide-Formoterol (Symbicort) 160-4.5 mcg/actuation HFA aerosol inhaler Active 2 PUFF INHALATION TWICE A DAY 10.2 April 02, 2021 10:47am Start: 11-28-2020 End: 04-02-2021 Start: 11-28-2020 End: 04-02-2021 Budesonide-Formoterol (Symbi darrian) 160-4.5 mcg/actuation HFA aerosol inhaler Discontinued 2 NMA INHALATION TWICE A DAY 10.2 November 28, 2020 8:02am April 02, 2021 10:48am Start: 11-28-2020 End: 04-02-2021 take 1 puff(s) by inhalation twice daily Budesonide-Formoterol (Symbicort) 160-4.5 mcg/actuation HFA aerosol inhaler Discontinued 2 PUFF INHALATION TWICE A DAY 10.2 November 28, 2020 7:02am April 02, 2021 9:48am Start: 11-28-2020 End: 04-02-2021 take 1 puff(s) by inhalation twice daily Budesonide-Formoterol (Symbicort) 160-4.5 mcg/actuation HFA aerosol inhaler Discontinued 2 PUFF INHALATION TWICE A DAY 10.2 November 28, 2020 8:02am April 02, 2021 10:48am Start: 01-24-2020 End: 11-28-2020 take 1 puff(s) by inhalation twice daily Budesonide-Formoterol (Symbicort) 160-4.5 mcg/actuation HFA aerosol inhaler Discontinued 2 PUFF INHALATION TWICE A DAY 10.2 January 24, 2020 1:42pm November 28, 2020 8:03am Start: 01-24-2020 End: 11-28-2020 Start: 01-24-2020 End: 11-28-2020 Budesonide-Formoterol (Symbi darrian) 160-4.5 mcg/actuation HFA aerosol inhaler Discontinued 2 NMA INHALATION TWICE A DAY 10.2 January 24, 2020 12:00am November 28, 2020 8:03am Start: 01-24-2020 End: 11-28-2020 take 1 puff(s) by inhalation twice daily Budesonide-Formoterol (Symbicort) 160-4.5 mcg/actuation HFA aerosol inhaler Discontinued 2 PUFF INHALATION TWICE A DAY 10.2 2020 11:00pm November 28, 2020 7:03am Start: 01-24-2020 End: 11-28-2020 take 1 puff(s) by inhalation twice daily Budesonide-Formoterol (Symbicort) 160-4.5 mcg/actuation HFA aerosol inhaler Discontinued 2 PUFF INHALATION TWICE A DAY 10.2 January 24, 2020 12:00am November 28, 2020 8:03am busPIRone hydrochloride 5 mg oral tablet (20 sources) Start: 06-17-2024 End: 06-18-2024 Start: 06-11-2018 End: 06-26-2023 Start: 07-14-2017 End: 07-29-2017 Start: 07-14-2017 End: 07-29-2017 take 1 tablet by mouth three times daily Buspirone 5 MG tablet Discontinued 5 mg PO THREE TIMES A DAY 90 July 14, 2017 12:00am July 29, 2017 12:41pm Comment on above: Take 5 mg by mouth t wice daily. ciprofloxacin 500 mg oral ta blet (14 sources) Quinolone Antimicrobial Start: 08-12-2020 End: 09-05-2020 clindamycin 300 mg oral caps ule (4 sources) Lincosamide Antibacterial Start: 05-24-2023 End: 07-28-2023 clopidogrel 75 mg oral table t (20 sources) P2Y12 Platelet Inhibitor Start: 04-20-2024 End: 09-09-2024 Start: 06-12-2018 End: 01-26-2023 Comment on above: Take 75 mg by mouth once daily. dapagliflozin 10 mg oral tab let (20 sources) Sodium-Glucose Cotransporter 2 Inhibitor Start: 04-24-2022 End: 07-12-2024 doxycycline monohydrate 100 mg oral tablet (13 sources) Tetracycline-class Drug Start: 06-20-2024 End: 07-12-2024 Start: 12-31-2023 End: 01-07-2024 take 1 tablet by mouth twice daily doxycycline (VIBRA-TABS) 100 mg tablet Take 1 tablet by mouth two times a day for 7 days. 14 tablet 12/31/2023 01/07/2024 Active Start: 03-01-2022 End: 04-24-2022 enteric contrast (will be provided with radiology test) (1 source) Start: 01-06-2022 End: 01-07-2022 enteric contrast (will be provided with radiology test) For CT PELVIS WO IVCON order Administer, As Directed One Time Only, via Oral, Rectal, both Oral and Rectal, Enteric Tube, Stoma or Indwelling Catheter, Enteric Contrast as designated per enteric contrast guidelines 1 Each 0 01/06/2022 01/07/2022 Comment on above: For CT PELVIS WO IVC ON order Administer, As Directed One Time Only, via Oral, Rectal, both Oral and Rectal, Enteric Tube, Stoma or Indwelling Catheter, Enteric Contrast as designated per enteric contrast guidelines famotidine 20 mg oral tablet (20 sources) Histamine-2 Receptor Antagonist Start: 08-19-2019 End: 06-13-2021 fenofibrate 134 mg oral capsule (20 sources) Peroxisome Proliferator Receptor alpha Agonist Start: 04-08-2017 End: 05-10-2024 Comment on above: Take 134 mg by mouth daily with breakfast. fluticasone propionate 0.05 mg/actuat metered dose nasal spray (3 sources) Corticosteroid Start: 05-21-2024 End: 07-12-2024 icosapent ethyl 1000 mg oral capsule (20 sources) Start: 06-02-2022 End: 05-10-2024 Start: 01-13-2020 End: 01-13-2020 3 ml insulin aspart protamine, human 70 unt/ml / insulin aspart, human 30 unt/ml pen injector (20 sources) Insulin Analog Start: 07-28-2017 End: 08-06-2017 Insulin Asp Prt-Insulin Aspart 100 unit/mL (70-30) insulin pen Discontinued 30 U SC TWICE A DAY July 29, 2017 12:37pm August 06, 2017 10:52am Start: 07-14-2017 End: 08-06-2017 Start: 07-14-2017 End: 07-28-2017 Insulin Asp Prt-Insulin Aspa rt Discontinued 0 UNITS SC TWICE DAILY WITH MEALS July 13, 2017 11:00pm July 28, 2017 12:36pm 52 units Q AM and 34 Q HS Insulin Nph And Regular Cheli n (20 sources) Insulin Start: 08-16-2019 End: 01-24-2020 Start: 08-16-2019 End: 01-24-2020 Insulin Nph And Regular Cheli n 100 unit/mL (70-30) insulin pen Discontinued 50 U SC WITH DINNER August 16, 2019 12:35pm January 24, 2020 3:00pm Start: 08-16-2019 End: 01-24-2020 Insulin Nph And Regular Cheli n Discontinued 50 UNIT SC WITH DINNER August 16, 2019 11:35am January 24, 2020 2:00pm Start: 08-16-2019 End: 01-24-2020 Insulin Nph And Regular Cheli n Discontinued 50 UNIT SC WITH DINNER August 16, 2019 12:35pm January 24, 2020 3:00pm Start: 08-16-2019 End: 01-24-2020 Start: 08-16-2019 End: 01-24-2020 Insulin Nph And Regular Cheli n 100 unit/mL (70-30) insulin pen Discontinued 60 U SC WITH BREAKFAST August 16, 2019 12:35pm January 24, 2020 3:00pm Start: 08-16-2019 End: 01-24-2020 Insulin Nph And Regular Cheli n Discontinued 60 UNIT SC WITH BREAKFAST August 16, 2019 11:35am January 24, 2020 2:00pm Start: 08-16-2019 End: 01-24-2020 Insulin Nph And Regular Cheli n Discontinued 60 UNIT SC WITH BREAKFAST August 16, 2019 12:35pm January 24, 2020 3:00pm Start: 08-11-2018 End: 08-16-2019 Start: 08-11-2018 End: 08-16-2019 Insulin Nph And Regular Cheli n 100 unit/mL (70-30) insulin pen Discontinued 24 U SC WITH DINNER August 11, 2018 9:26am August 16, 2019 12:37pm Start: 08-11-2018 End: 08-16-2019 Insulin Nph And Regular Cheli n Discontinued 24 UNIT SC WITH DINNER August 11, 2018 8:26am August 16, 2019 11:37am Start: 08-11-2018 End: 08-16-2019 Insulin Nph And Regular Cheli n Discontinued 24 UNIT SC WITH DINNER August 11, 2018 9:26am August 16, 2019 12:37pm Start: 08-11-2018 End: 08-16-2019 Start: 08-11-2018 End: 08-16-2019 Insulin Nph And Regular Cheli n 100 unit/mL (70-30) insulin pen Discontinued 30 U SC WITH BREAKFAST August 11, 2018 9:26am August 16, 2019 12:37pm Start: 08-11-2018 End: 08-16-2019 Insulin Nph And Regular Cheli n Discontinued 30 UNIT SC WITH BREAKFAST August 11, 2018 8:26am August 16, 2019 11:37am Start: 08-11-2018 End: 08-16-2019 Insulin Nph And Regular Cheli n Discontinued 30 UNIT SC WITH BREAKFAST August 11, 2018 9:26am August 16, 2019 12:37pm Start: 06-11-2018 End: 08-11-2018 Insulin Nph And Regular Cheli n Discontinued 22 UNITS SC WITH DINNER June 11, 2018 1:36pm August 11, 2018 9:26am Start: 06-11-2018 End: 08-11-2018 Insulin Nph And Regular Cheli n Discontinued 28 UDC SC WITH BREAKFAST June 11, 2018 1:34pm August 11, 2018 9:26am Start: 06-11-2018 End: 08-11-2018 Start: 06-11-2018 End: 08-11-2018 Insulin Nph And Regular Cheli n 70-30/M insulin pen Discontinued 28 NMA SC WITH BREAKFAST June 11, 2018 1:00am August 11, 2018 9:26am Start: 06-11-2018 End: 08-11-2018 Insulin Nph And Regular Cheli n 70-30/M insulin pen Discontinued 22 U SC WITH DINNER June 11, 2018 1:00am August 11, 2018 9:26am Start: 06-11-2018 End: 08-11-2018 Insulin Nph And Regular Cheli n Discontinued 28 UDC SC WITH BREAKFAST June 11, 2018 12:00am August 11, 2018 8:26am Start: 06-11-2018 End: 08-11-2018 Insulin Nph And Regular Cheli n Discontinued 22 UNITS SC WITH DINNER June 11, 2018 12:00am August 11, 2018 8:26am Start: 06-11-2018 End: 08-11-2018 Insulin Nph And Regular Cheli n Discontinued 28 UDC SC WITH BREAKFAST June 11, 2018 1:00am August 11, 2018 9:26am Start: 06-11-2018 End: 08-11-2018 Insulin Nph And Regular Cheli n Discontinued 22 UNITS SC WITH DINNER June 11, 2018 1:00am August 11, 2018 9:26am Start: 08-06-2017 End: 01-05-2018 Insulin Nph And Regular Cheli n Discontinued 0 SC TWICE A DAY August 06, 2017 11:52am January 05, 2018 4:51pm . Take 30 units in am and 20 units in pmSC BID; administer 30-60 min before breakfast and dinner Start: 08-06-2017 End: 01-05-2018 Start: 08-06-2017 End: 01-05-2018 Insulin Nph And Regular Cheli n 100 unit/mL (70-30) insulin pen Discontinued 0 SC TWICE A DAY August 06, 2017 12:00am January 05, 2018 4:51pm . Take 30 units in am and 20 units in pmSC BID; administer 30-60 min before breakfast and dinner Start: 08-06-2017 End: 01-05-2018 Insulin Nph And Regular Cheli n Discontinued 0 SC TWICE A DAY August 05, 2017 11:00pm January 05, 2018 3:51pm . Take 30 units in am and 20 units in pmSC BID; administer 30-60 min before breakfast and dinner Start: 08-06-2017 End: 01-05-2018 Insulin Nph And Regular Cheli n Discontinued 0 SC TWICE A DAY August 06, 2017 12:00am January 05, 2018 4:51pm . Take 30 units in am and 20 units in pmSC BID; administer 30-60 min before breakfast and dinner inject 28 [IU] by sifuentes bcutaneous injection once daily before breakfast insulin NPH-insulin regular injection Inject 28 Units subcutaneously Daily Before Breakfast. Active Comment on above: Inject 28 Units subc utaneously Daily Before Breakfast. 3 ml insulin lispro 50 unt/m l / insulin lispro protamine, human 50 unt/ml pen injector (20 sources) Insulin Analog Start: 06-17-2024 End: 07-12-2024 Start: 07-22-2023 Insulin Lispro Protamin-Lispro (Humalog Mix 50-50 Kwikpen) 100 unit/mL (50-50) insulin pen Active 20 U SC TWICE A DAY July 22, 2023 12:20pm 9 pm: eat a meal, take 20 units insulin 1 am: eat a meal during work break 8 am: eat a meal take 20 units insulin Start: 01-13-2023 End: 07-22-2023 Start: 01-13-2023 End: 07-22-2023 Insulin Lispro Protamin-Lisp ro (Humalog Mix 50-50 Kwikpen) 100 unit/mL (50-50) insulin pen Discontinued 70 U SC TWICE A DAY July 22, 2023 9:51am July 22, 2023 2:00pm 9 pm: eat a meal, take 20 units insulin 1 am: eat a meal during work break 8 am: eat a meal take 20 units insulin Start: 01-13-2023 End: 01-26-2023 inject 70 [IU] by subcutaneous injection at mealtime Insulin Lispro Protamin-Lispro (Humalog Mix 50-50 Kwikpen) 100 unit/mL (50-50) insulin pen Discontinued 0 .ROUTE .COMPLEX January 13, 2023 9:25am January 26, 2023 3:37pm 9pm: eat a meal, inject SUBCUTANEOUSLY 70 units insulin. 1am: eat a meal during workbreak. 8am: eat a meal inject 70 units insulin] Start: 07-30-2022 End: 01-26-2023 Start: 07-30-2022 End: 01-13-2023 inject 40 [IU] by subcutaneous injection at mealtime, then inject 50 [IU] by subcutaneous injection at mealtime Insulin Lispro Protamin-Lispro (Humalog Mix 50-50 Kwikpen) 100 unit/mL (50-50) insulin pen Discontinued 0 .ROUTE .COMPLEX 105 July 30, 2022 1:55pm January 13, 2023 9:26am 9pm: eat a meal, inject SUBCUTANEOUSLY 40 units insulin. 1am: eat a meal during workbreak. 8am: eat a meal inect 50 units insulin] Start: 01-08-2022 End: 07-30-2022 Insulin Lispro Protamin-Lisp ro (Humalog Mix 50-50 Kwikpen) 100 unit/mL (50-50) insulin pen Discontinued 70 U SC TWICE A DAY January 08, 2022 12:27pm July 30, 2022 1:55pm 9 pm: eat a meal, take 40 units insulin 1 am: eat a meal during work break 8 am: eat a meal take 50 units insulin Start: 01-24-2020 End: 07-30-2022 Start: 01-24-2020 End: 01-08-2022 Insulin Lispro Protamin-Lisp ro (Humalog Mix 50-50 Kwikpen) 100 unit/mL (50-50) insulin pen Discontinued 60 U SC TWICE A DAY 108 90 November 01, 2021 8:08am January 08, 2022 12:28pm 9 pm: eat a meal, take 40 units insulin 1 am: eat a meal during work break 8 am: eat a meal take 50 units insulin 24 hr isosorbide mononitrate 30 mg extended release oral tablet (20 sources) Nitrate Vasodilator Start: 06-12-2018 End: 07-22-2023 Comment on above: Take 30 mg by mouth once daily. lidocaine 0.05 mg/mg medicat ed patch (14 sources) Antiarrhythmic, Amide Local Anesthetic Start: 07-05-2020 End: 07-08-2020 Start: 07-05-2020 End: 07-08-2020 Lidocaine 1 PATCH patch Disc ontinued 1 NMA TOPICAL DAILY 3 3 July 05, 2020 12:00am July 07, 2020 12:00am July 08, 2020 12:03am Apply for up to 12 hours/day to the affected area Start: 07-05-2020 End: 07-08-2020 Lidocaine Discontinued 1 PAT CH TOPICAL DAILY 3 3 July 04, 2020 11:00pm July 07, 2020 11:03pm Apply for up to 12 hours/day to the affected area Nirmatrelvir-Ritonavir (13 sources) Start: 07-18-2021 End: 09-18-2021 Start: 07-18-2021 End: 09-18-2021 Nirmatrelvir-Ritonavir (Paxl ovid (Eua)) 150 mg x 2- 100 mg tablet Discontinued 0 PO .COMPLEX July 17, 2021 11:00pm September 18, 2021 1:39pm take TWO 150 mg tablets of nirmatrelvir with ONE 100 mg tablet of ritonavir twice daily for 5 days Start: 07-18-2021 End: 09-18-2021 Nirmatrelvir-Ritonavir (Paxl ovid (Eua)) 150 mg x 2- 100 mg tablet Discontinued 0 PO .COMPLEX July 18, 2021 12:00am September 18, 2021 2:39pm take TWO 150 mg tablets of nirmatrelvir with ONE 100 mg tablet of ritonavir twice daily for 5 days [place]-3 Fatty Acids-Fish Oil (12 sources) Start: 07-10-2017 End: 07-28-2017 [place]-3 Fatty Acids-Fish Oil Discontinued 2 EACH PO DAILY July 10, 2017 3:35pm July 28, 2017 1:36pm Start: 07-10-2017 End: 07-28-2017 [place]-3 Fatty Acids-Fish Oil Discontinued 2 EACH PO DAILY July 09, 2017 11:00pm July 28, 2017 12:36pm Start: 07-10-2017 End: 07-28-2017 [place]-3 Fatty Acids-Fish Oil Discontinued 2 EACH PO DAILY July 10, 2017 12:00am July 28, 2017 1:36pm [place]-3 Fatty Acids-Fish Oil 1 EACH capsule (1 source) Start: 07-10-2017 End: 07-28-2017 [place]-3 Fatty Acids-Fish Oil 1 EACH capsule Discontinued 2 NMA PO DAILY July 10, 2017 12:00am July 28, 2017 1:36pm omeprazole 20 mg delayed release oral capsule (20 sources) Proton Pump Inhibitor Start: 01-01-2022 End: 07-12-2024 Start: 07-10-2017 End: 07-14-2017 pantoprazole 40 mg delayed release oral tablet (20 sources) Proton Pump Inhibitor Start: 06-13-2021 End: 01-01-2022 Pen Needle, Diabetic (12 sources) Start: 07-14-2017 End: 07-29-2017 Pen Needle, Diabetic Discontinued 1 EACH MC TWICE A DAY 60 July 14, 2017 4:28pm July 29, 2017 12:38pm Start: 07-14-2017 End: 07-29-2017 Pen Needle, Diabetic Discont inued 1 EACH MC TWICE A DAY 60 July 13, 2017 11:00pm July 29, 2017 11:38am Start: 07-14-2017 End: 07-29-2017 Pen Needle, Diabetic Discont inued 1 EACH MC TWICE A DAY 60 July 14, 2017 12:00am July 29, 2017 12:38pm Pen Needle, Diabetic 1 EACH needle (1 source) Start: 07-14-2017 End: 07-29-2017 Pen Needle, Diabetic 1 EACH needle Discontinued 1 NMA MC TWICE A DAY 60 July 14, 2017 12:00am July 29, 2017 12:38pm phenazopyridine hydrochlorid e 100 mg oral tablet (14 sources) Start: 06-01-2019 End: 01-24-2020 predniSONE 20 mg oral tablet (20 sources) Start: 02-14-2020 End: 06-05-2020 Start: 02-14-2020 End: 06-05-2020 take 40 mg by mouth once daily at mealtime Prednisone Discontinued 40 MG PO DAILY February 14, 2020 12:00am June 05, 2020 4:31pm With food Start: 01-24-2020 End: 06-05-2020 Start: 01-22-2020 End: 01-24-2020 take 3 tablets by mouth once daily Prednisone 20 MG tablet Discontinued 60 mg PO DAILY January 22, 2020 12:00am January 24, 2020 3:01pm Start: 01-22-2020 End: 01-24-2020 take 60 mg by mouth once daily Prednisone Discontinued 60 MG PO DAILY January 21, 2020 11:00pm January 24, 2020 2:01pm Start: 12-05-2019 End: 01-24-2020 Start: 12-05-2019 End: 01-24-2020 take 1 tablet by mouth once daily Prednisone 20 mg tablet Discontinued 20 mg PO DAILY December 05, 2019 12:00am January 24, 2020 3:00pm Start: 04-12-2019 End: 05-20-2019 take 40 mg by mouth once daily at mealtime Prednisone Discontinued 40 MG PO DAILY April 12, 2019 12:00am May 20, 2019 2:34pm With food Start: 01-04-2018 End: 05-20-2019 Comment on above: Take 2 tablets by [facility] once daily. simvastatin 40 mg oral table t (20 sources) HMG-CoA Reductase Inhibitor Start: 12-01-2016 End: 06-12-2018 SITagliptin 50 mg oral table t (14 sources) Dipeptidyl Peptidase 4 Inhibitor Start: 07-14-2017 End: 07-28-2017 sulfamethoxazole 800 mg / trimethoprim 160 mg oral tablet (14 sources) Dihydrofolate Reductase Inhibitor Antibacterial, Sulfonamide Antimicrobial Start: 01-16-2020 End: 01-24-2020 Start: 01-16-2020 End: 01-24-2020 Sulfamethoxazole-Trimethopri m 1 EACH tablet Discontinued 1 NMA PO TWICE A DAY January 16, 2020 12:00am January 24, 2020 1:34pm Start: 01-16-2020 End: 01-24-2020 Sulfamethoxazole-Trimethopri m Discontinued 1 EACH PO TWICE A DAY January 15, 2020 11:00pm January 24, 2020 12:34pm triamcinolone acetonide 5 mg /ml topical cream (13 sources) Corticosteroid Start: 01-13-2023 End: 01-26-2023 Start: 03-05-2017 triamcinolone acetonide (KENALOG) 0.1 % cream Indications: Rash Apply 1 application to affected area three times daily. Apply sparingly to area for rash/itching. 30 g 03/05/2017 Active Comment on above: Apply 1 application to affected area three times daily. Apply sparingly to area for rash/itching. Varenicline Tartrate (14 sources) Partial Cholinergic Nicotinic Agonist Start: 0 End: 02-08-2020 Start: 05-20-2019 End: 02-08-2020 take 1 tablet by mouth once Varenicline Tartrate ([place] tix Starting Month Box) 0.5 mg (11)- 1 mg (42) tablets,dose pack Discontinued 0 PO per package directions 53 May 20, 2019 1:00am February 08, 2020 2:56pm PO PER PKG DIR Problems Active Problems Problem Classification Problem Date Documented Da te Episodic/Chronic Abdominal pain (18 sources) Generalized abdominal pain; Translations: [Generalized abdominal pain] Onset: 01-28-2022 Episodic Acute bronchitis (14 sources) Acute bronchitis with bronchospasm; Translations: [Acute bronchitis, unspecified] 04-13-2019 Episodic Acute myocardial infarction (20 sources) Myocardial infarction; Translations: [Non-ST elevation (NSTEMI) myocardial infarction] Chronic Chronic kidney disease (1 source) Dependence on renal dialysis; Translations: [Dependence on renal dialysis] Onset: 06-21-2024 Chronic Chronic obstructive pulmonary disease and bronchiectasis (20 sources) Pulmonary emphysema; Translations: [Emphysema, unspecified] Onset: 05-31-2024 Chronic Chronic obstructive pulmonary disease and bronchiectasis (15 sources) Bronchitis; Translations: [Bronchitis, not specified as acute or chronic] 2020 Episodic Congestive heart failure; nonhypertensive (5 sources) Congestive heart failure; Translations: [Heart failure, unspecified] Onset: 06-24-2024 06-27-2024 Chronic Coronary atherosclerosis and other heart disease (20 sources) History of non-ST segment elevation myocardial infarction; Translations: [Old myocardial infarction] Onset: 06-11-2018 12-11-2020 Chronic Comment on above: The patient has no c hest pain. Coronary atherosclerosis and other heart disease (17 sources) Presence of aortocoronary bypass graft; Translations: [Aortocoronary bypass status] Onset: 04-06-2006 Episodic Diabetes mellitus without complication (20 sources) Diabetes mellitus; Translations: [Insulin dependent diabetes mellitus] Onset: 06-24-2024 Chronic Diabetes mellitus without complication (18 sources) Hyperglycemia; Translations: [Hyperglycemia, unspecified] Onset: 06-24-2024 07-06-2020 Episodic Disorders of lipid metabolism (20 sources) Pure hypercholesterolemia ; Translations: [Pure hypercholesterolemia , unspecified] Onset: 10-09-2015 10-09-2015 Chronic E Codes: Fall (5 sources) Fall; Translations: [Unspecified fall, initial encounter] 04-25-2023 Episodic Essential hypertension (20 sources) Essential hypertension; Translations: [Essential (primary) hypertension] Onset: 05-31-2024 Chronic Fluid and electrolyte disorders (14 sources) Hyponatremia; Translations: [Hypo-osmolality and hyponatremia] 07-06-2020 Episodic Headache; including migraine (14 sources) Headache; Translations: [Headache] 08-13-2020 Episodic Heart valve disorders (2 sources) Aortic valve stenosis; Translations: [Nonrheumatic aortic (valve) stenosis] 07-12-2024 Chronic Heart valve disorders (4 sources) Heart murmur; Translations: [Cardiac murmur, unspecified] Onset: 07-02-2024 04-01-2024 Episodic Hypertension with complications and secondary hypertension (1 source) Hypertensive heart disease with heart failure; Translations: [Hypertensive heart disease with heart failure] Onset: 06-29-2024 Chronic Nonspecific chest pain (3 sources) Chest discomfort; Translations: [Other chest pain] Onset: 08-02-2024 06-27-2024 Episodic Occlusion or stenosis of precerebral arteries (20 sources) Right carotid artery stenosis; Translations: [Occlusion and stenosis of right carotid artery] Onset: 05-05-2024 Chronic Other aftercare (2 sources) Surgical follow-up; Translations: [Encounter for surgical aftercare following surgery on the circulatory system] 05-17-2024 Episodic Other aftercare (2 sources) shelter (current) use of insulin; Translations: [terminal superintendent (current) use of insulin] Onset: 06-24-2024 Episodic Other aftercare (1 source) Encounter for surgical aftercare following surgery on the circulatory system; Translations: [Encounter for surgical aftercare following surgery on the circulatory system] Onset: 06-23-2024 Episodic Other and ill-defined heart disease (2 sources) Impaired left ventricular function; Translations: [Heart disease, unspecified] 05-10-2024 Chronic Other and ill-defined heart disease (3 sources) Left ventricular cardiac dysfunction; Translations: [Heart disease, unspecified] 06-27-2024 Chronic Other and ill-defined heart disease (2 sources) Heart disease, unspecified; Translations: [Heart disease, unspecified] Onset: 07-12-2024 Chronic Other circulatory disease (2 sources) Disorder of carotid artery; Translations: [Disorder of arteries and arterioles, unspecified] 09-09-2023 Chronic Other circulatory disease (1 source) Disorder of arteries and arterioles, unspecified; Translations: [Disorder of arteries and arterioles, unspecified] Onset: 09-12-2024 Chronic Other circulatory disease (1 source) Other specified peripheral vascular diseases; Translations: [Other specified peripheral vascular diseases] Onset: 06-03-2024 Chronic Other connective tissue disease (2 sources) Pain in left lower limb; Translations: [Pain in left leg] 10-28-2023 Episodic Other ear and sense organ disorders (6 sources) Eczema of external auditory canal; Translations: [Acute eczematoid otitis externa, bilateral] 10-09-2022 Episodic Other hematologic conditions (14 sources) High troponin I level; Translations: [Other specified abnormalities of plasma proteins] 06-14-2018 Episodic Other injuries and conditions due to external causes (5 sources) Abrasion; Translations: [Other injury of unspecified body region, initial encounter] 04-25-2023 Episodic Other liver diseases (14 sources) Steatosis of liver; Translations: [Fatty (change of) liver, not elsewhere classified] 06-14-2018 Chronic Other lower respiratory disease (2 sources) Pulmonary edema; Translations: [Chronic pulmonary edema] 06-27-2024 Chronic Other lower respiratory disease (2 sources) Dyspnea on exertion; Translations: [Other forms of dyspnea] 05-10-2024 Episodic Other lower respiratory disease (1 source) Respiratory insufficiency; Translations: [Other abnormalities of breathing] 06-27-2024 Episodic Other lower respiratory disease (1 source) Hypoxia; Translations: [Hypoxemia] 06-27-2024 Episodic Other lower respiratory disease (2 sources) Acute respiratory distress; Translations: [Acute respiratory distress] 06-27-2024 Episodic Other lower respiratory disease (1 source) Other abnormalities of breathing; Translations: [Other abnormalities of breathing] Onset: 06-24-2024 Episodic Other lower respiratory disease (2 sources) Acute pulmonary edema; Translations: [Acute pulmonary edema] Onset: 06-24-2024 Episodic Other nutritional; endocrine; and metabolic disorders (14 sources) Hypocalcemia; Translations: [Hypocalcemia] 06-17-2021 Chronic Other nutritional; endocrine; and metabolic disorders (2 sources) Body mass index 25-29 - overweight; Translations: [Overweight] 06-27-2024 Episodic Other nutritional; endocrine; and metabolic disorders (2 sources) Overweight; Translations: [Overweight] Onset: 06-24-2024 Episodic Other screening for suspected conditions (not mental disorders or infectious disease) (20 sources) Patient encounter status; Translations: [Encounter for screening for malignant neoplasm of respiratory organs] Onset: 06-24-2024 Episodic Other skin disorders (6 sources) Lesion of skin of foot; Translations: [Changes in skin texture] 02-24-2024 Episodic Other upper respiratory infections (1 source) Chronic sinusitis; Translations: [Chronic sinusitis, unspecified] 12-31-2023 Chronic Other upper respiratory infections (20 sources) Upper respiratory infection; Translations: [Acute upper respiratory infection, unspecified] Episodic Minda-; endo-; and myocarditis; cardiomyopathy (except that caused by tuberculosis or sexually transmitted disease) (1 source) Cardiomyopathy; Translations: [Cardiomyopathy, unspecified] 08-06-2024 Chronic Peripheral and visceral atherosclerosis (17 sources) Intermittent claudication; Translations: [Peripheral vascular disease, unspecified] Onset: 05-05-2024 09-10-2023 Chronic Comment on above: LEAS Pleurisy; pneumothorax; pulmonary collapse (4 sources) Bilateral pleural effusion; Translations: [Pleural effusion, not elsewhere classified] Onset: 06-24-2024 06-27-2024 Episodic Residual codes; unclassified (14 sources) Noncompliance with medication regimen; Translations: [Patient's other noncompliance with medication regimen] 06-14-2018 Episodic Respiratory failure; insufficiency; arrest (adult) (4 sources) Acute hypoxemic respiratory failure; Translations: [Acute respiratory failure with hypoxia] Onset: 06-24-2024 06-27-2024 Episodic Skin and subcutaneous tissue infections (15 sources) Cellulitis; Translations: [Cellulitis, unspecified] 03-09-2022 Episodic Spondylosis; intervertebral disc disorders; other back problems (14 sources) Backache; Translations: [Dorsalgia, unspecified] 07-06-2020 Episodic Substance-related disorders (20 sources) Nicotine dependence; Translations: [Nicotine dependence, unspecified, uncomplicated] Onset: 05-05-2024 Chronic Superficial injury; contusion (18 sources) Contusion of foot; Translations: [Contusion of left foot, initial encounter] 05-21-2022 Episodic Unclassified (7 sources) Type 2 diabetes mellitus without complication; Translations: [Uncontrolled type 2 diabetes mellitus without complication, without long-term current use of insulin] Onset: 10-09-2015 10-09-2015 Unclassified (1 source) Cough, unspecified; Translations: [Cough, unspecified] Onset: 07-02-2024 Urinary tract infections (20 sources) Urinary tract infectious disease; Translations: [Urinary tract infection, site not specified] 08-13-2020 Episodic Viral infection (16 sources) Disease caused by 2019-nCoV; Translations: [COVID-19] 07-18-2021 Episodic Past or Other Problems Problem Classification Problem Date Documented Da te Episodic/Chronic Abdominal hernia (15 sources) Umbilical hernia; Translations: [Umbilical hernia without obstruction or gangrene] Onset: 01-05-2017 01-05-2017 Episodic Open wounds of extremities (1 source) Unspecified open wound of right great toe without damage to nail, initial encounter; Translations: [Unspecified open wound of right great toe without damage to nail, initial encounter] Onset: 01-07-2024 Episodic Other connective tissue disease (1 source) Pain in left leg; Translations: [Pain in left leg] Onset: 05-05-2024 Episodic Other skin disorders (1 source) Changes in skin texture; Translations: [Changes in skin texture] Onset: 05-31-2024 Episodic Screening and history of mental health and substance abuse codes (1 source) Personal history of nicotine dependence; Translations: [Personal history of nicotine dependence] Onset: 06-06-2024 Episodic Results Test Name Value Interpretation Reference Range Facility Arterial study reportOrdered By: Saúl Flowers on 09-08-2024 Noninvasive arteriosclerosis study report [facility] Work Phone: [phone] Carotid Duplex Ultrasoundon 09-08-2024 Carotid Duplex Ultrasound Normal [facility] Duplex ultrasound of carotid artery reportOrdered By: Saúl Flowers on 09-08-2024 Study report [facility] Work Phone: [phone] Lower Ext Art Exam w/o Exerc zachary 09-08-2024 Lower Ext Art Exam w/o Exercis Normal [facility] Internal Medicine Office Vis iton 08-02-2024 Internal Medicine Office Visit Normal [facility] No Panel InformationOrdered By: Xiang Rogers on 08-02-2024 12.5 % High 4.2-6.[address] [facility] L499.0043on 07-30-2024 Trop T High Sen Normal <=[address] [facility] Comment on above: Result Comment: Canc elled via OM: Order cancelled - Patient discharged Performed By: #### L 499.0043 ####[facility] [address] [place], [address] Absolute lymphocyte countOrd ered By: ED PROVIDER on 07-29-2024 Lymphocytes Auto (Unsp spec) [#/Vol] 2.79 10*3/uL 0.83-4.[address] [facility] Anion gap in Serum or Plasma Ordered By: Lawson Castellon on 07-29-2024 Anion gap [Moles/Vol] 16 mmol/L High 5-15 [facility] Automated lymphocyte count a s percentage of total leukocytesOrdered By: ED PROVIDER on 07-29-2024 Lymphocytes/100 WBC Auto (Unsp spec) 37.4 % 19-[address] [facility] BUN/creatinine ratioOrdered By: Lawson Castellon on 07-29-2024 Urea nitrogen/Creatinine [Mass ratio] 20.7 mg/mg High 10-[address] [facility] Basic Metabolic Profile (BMP )on 07-29-2024 BUN/CRE 20.7 RATIO High 10- [facility] Comment on above: Performed By: #### L 500.2500, L100.0100, L501.4021 ####[facility] [address] [place], [address] Calcium [Mass/Vol] 9.3 mg/dL Normal 7.6-11.0 [facility] Comment on above: Performed By: #### L 500.2500, L100.0100, L501.4021 ####[facility] [address] [place], [address] Chloride [Moles/Vol] 99 mmol/L Normal 98-108 [facility] Comment on above: Performed By: #### L 500.2500, L100.0100, L501.4021 ####[facility] [address] [place], [address] CO2 [Moles/Vol] 19.8 mmol/L Low 21.0-32.[address] [facility] Comment on above: Performed By: #### L 500.2500, L100.0100, L501.4021 ####[facility] [address] [place], [address] Creatinine [Mass/Vol] 1.11 mg/dL Normal 0.70-1.20 [facility] Comment on above: Performed By: #### L 500.2500, L100.0100, L501.4021 ####[facility] [address] [place], [address] ECRCL 71.61 ml/min Normal 50-[address] [facility] Comment on above: Performed By: #### L 500.2500, L100.0100, L501.4021 ####[facility] [address] [place], [address] GAP 16 High 5-[address] [facility] Comment on above: Performed By: #### L 500.2500, L100.0100, L501.4021 ####[facility] [address] [place], [address] GFR/1.73 sq M.predicted among non-blacks MDRD (S/P/Bld) [Vol rate/Area] 74 mL/min/{1.73_m2} Normal >[address] [facility] Comment on above: Result Comment: mL/m in/1.73m2 CKD-EPI Creatinine Equation (2020) Performed By: #### L 500.2500, L100.0100, L501.4021 ####[facility] [address] [place], [address] Glucose [Mass/Vol] 400 mg/dL High 70-99 [facility] Comment on above: Performed By: #### L 500.2500, L100.0100, L501.4021 ####[facility] [address] [place], [address] Potassium [Moles/Vol] 4.0 mmol/L Normal 3.3-5.1 [facility] Comment on above: Result Comment: Hemo lysis present, Results??could be affected.?? Performed By: #### L 500.2500, L100.0100, L501.4021 ####[facility] [address] [place], [address] Sodium [Moles/Vol] 134 mmol/L Normal 133-145 [facility] Comment on above: Performed By: #### L 500.2500, L100.0100, L501.4021 ####[facility] [address] [place], [address] Urea nitrogen [Mass/Vol] 23 mg/dL High 4-[address] [facility] Comment on above: Performed By: #### L 500.2500, L100.0100, L501.4021 ####[facility] [address] [place], [address] Basophil percentageOrdered B y: ED PROVIDER on 07-29-2024 Basophils/100 WBC (Bld) 0.3 % 0-1 [facility] CBC W/Diff, Automatedon 07-06 Absolute Lymph 2.79 X10 3/uL Normal 0.83-4.[address] [facility] Comment on above: Performed By: #### L 500.2500, L100.0100, L501.4021 ####[facility] [address] [place], [address] Absolute Neut 4.0 X10 3/uL Normal 2.0-7.[address] [facility] Comment on above: Performed By: #### L 500.2500, L100.0100, L501.4021 ####[facility] [address] [place], [address] Basophils/100 WBC (Bld) 0.3 % Normal 0-1 [facility] Comment on above: Performed By: #### L 500.2500, L100.0100, L501.4021 ####[facility] [address] [place], [address] Eosinophils/100 WBC (Bld) 2.5 % Normal 0-[address] [facility] Comment on above: Performed By: #### L 500.2500, L100.0100, L501.4021 ####[facility] [address] [place], [address] Erythrocyte distribution width (RBC) [Ratio] 12.7 % Normal 11.6-14.[address] [facility] Comment on above: Performed By: #### L 500.2500, L100.0100, L501.4021 ####[facility] [address] [place], [address] Hematocrit (Bld) [Volume fraction] 44.1 % Normal 40-[address] [facility] Comment on above: Performed By: #### L 500.2500, L100.0100, L501.4021 ####[facility] [address] [place], [address] Hemoglobin (Bld) [Mass/Vol] 15.6 g/dL Normal 13.0-16.[address] [facility] Comment on above: Performed By: #### L 500.2500, L100.0100, L501.4021 ####[facility] [address] [place], [address] IG% 0.100 Normal 0.0-0.[address] [facility] Comment on above: Result Comment: IG% - Immature Granulocytes (promyelocytes, myelocytes andmetamyelocytes) > 1% indicates that a LEFT SHIFT is Present. Performed By: #### L 500.2500, L100.0100, L501.4021 ####[facility] [address] [place], [address] Lymphocytes/100 WBC (Bld) 37.4 % Normal 19-[address] [facility] Comment on above: Performed By: #### L 500.2500, L100.0100, L501.4021 ####[facility] [address] [place], [address] MCH (RBC) [Entitic mass] 32.2 pg High 27.0-32.[address] [facility] Comment on above: Performed By: #### L 500.2500, L100.0100, L501.4021 ####[facility] [address] [place], [address] MCHC (RBC) [Mass/Vol] 35.4 g/dL Normal 32-36 [facility] Comment on above: Performed By: #### L 500.2500, L100.0100, L501.4021 ####[facility] [address] [place], [address] MCV (RBC) [Entitic vol] 90.9 fL Normal 80-94 [facility] Comment on above: Performed By: #### L 500.2500, L100.0100, L501.4021 ####[facility] [address] [place], [address] Monocytes/100 WBC (Bld) 6.6 % Normal 0-10 [facility] Comment on above: Performed By: #### L 500.2500, L100.0100, L501.4021 ####[facility] [address] [place], [address] Neutrophils/100 WBC (Bld) 53.1 % Normal 47-[address] [facility] Comment on above: Performed By: #### L 500.2500, L100.0100, L501.4021 ####[facility] [address] [place], [address] Nucleated RBC (Bld) [#/Vol] 0 10*3/uL Normal 0-[address] [facility] Comment on above: Performed By: #### L 500.2500, L100.0100, L501.4021 ####[facility] [address] [place], [address] Platelet mean volume (Bld) [Entitic vol] 10.3 fL Normal 6.2-12.[address] [facility] Comment on above: Performed By: #### L 500.2500, L100.0100, L501.4021 ####[facility] [address] [place], [address] Platelets (Bld) [#/Vol] 275 10*3/uL Normal 150-[address] [facility] Comment on above: Performed By: #### L 500.2500, L100.0100, L501.4021 ####[facility] [address] [place], [address] RBC (Bld) [#/Vol] 4.85 10*6/uL Normal 4.6-6.2 [facility] Comment on above: Performed By: #### L 500.2500, L100.0100, L501.4021 ####[facility] [address] [place], [address] RDW SD 41.7 fl Normal 35.1-43.[address] [facility] Comment on above: Performed By: #### L 500.2500, L100.0100, L501.4021 ####[facility] [address] [place], [address] WBC (Bld) [#/Vol] 7.5 10*3/uL Normal 4.4-11.0 [facility] Comment on above: Performed By: #### L 500.2500, L100.0100, L501.4021 ####[facility] [address] [place], [address] Carbon dioxide, total [Moles /volume] in Central venous bloodOrdered By: Lawson Castellon on 07-29-2024 CO2 [Moles/Vol] 19.8 mmol/L Low 21.0-32.[address] [facility] Chest 1 View (Portable)on Chest 1 View (Portable) Normal [facility] Chloride assayOrdered By: Isael Castellon on 07-29-2024 Chloride [Moles/Vol] 99 mmol/L 98-108 [facility] Emergency Department Summary on 07-29-2024 Emergency Department Summary Normal [facility] Eosinophil percentageOrdered By: ED PROVIDER on 07-29-2024 Eosinophils/100 WBC (Bld) 2.5 % 0-[address] [facility] Erythrocyte distribution wid th ratioOrdered By: ED PROVIDER on 07-29-2024 Erythrocyte distribution width (RBC) [Ratio] 12.7 % 11.6-14.[address] [facility] Erythrocyte distribution wid th standard deviationOrdered By: ED PROVIDER on 07-29-2024 Erythrocyte distribution width (RBC) [Ratio] 41.7 fl 35.1-43.[address] [facility] Glomerular filtration rate ( GFR) estimation/1.73 sq m using serum, plasma, or whole bOrdered By: Lawson Castellon on 07-29-2024 GFR/1.73 sq M.predicted among non-blacks MDRD (S/P/Bld) [Vol rate/Area] 74 mL/min/{1.73_m2} >[address] [facility] Hematocrit Auto (Bld) [Volum e fraction]Ordered By: ED PROVIDER on 07-29-2024 Hematocrit (Bld) [Volume fraction] 44.1 % 40-[address] [facility] Hemoglobin measurementOrdere d By: ED PROVIDER on 07-29-2024 Hemoglobin (Bld) [Mass/Vol] 15.6 g/dL 13.0-16.[address] [facility] Immature granulocytes/100 WB C Auto (Bld)Ordered By: ED PROVIDER on 07-29-2024 Immature granulocytes/100 WBC (Bld) 0.100 % 0.0-0.[address] [facility] L499.0042on 07-29-2024 Trop T High Sen 27 ng/L High <=[address] [facility] Comment on above: Performed By: #### L 499.0042 ####[facility] [address] [place], [address] L501.4021on 07-29-2024 Trop T High Sen 22 ng/L Normal <=[address] [facility] Comment on above: Performed By: #### L 500.2500, L100.0100, L501.4021 ####[facility] [address] [place], [address] MCV (mean corpuscular volume ) determinationOrdered By: ED PROVIDER on 07-29-2024 MCV (RBC) [Entitic vol] 90.9 fL 80-94 [facility] Mean corpuscular hemoglobin (MCH) determinationOrdered By: ED PROVIDER on 07-29-2024 MCH (RBC) [Entitic mass] 32.2 pg High 27.0-32.[address] [facility] Monocyte percentageOrdered B y: ED PROVIDER on 07-29-2024 Monocytes/100 WBC (Bld) 6.6 % 0-10 [facility] Neutrophil percentageOrdered By: ED PROVIDER on 07-29-2024 Neutrophils/100 WBC (Bld) 53.1 % 47-[address] [facility] Platelet countOrdered By: ED PROVIDER on 07-29-2024 Platelets (Bld) [#/Vol] 275 10*3/uL 150-[address] [facility] Potassium measurement (mass/ volume)Ordered By: Lawson Castellon on 07-29-2024 Potassium (Unsp spec) [Mass/Vol] 4.0 mmol/L 3.3-5.[address] [facility] RBC Auto (Bld) [#/Vol]Ordere d By: ED PROVIDER on 07-29-2024 RBC (Bld) [#/Vol] 4.85 10*6/uL 4.6-6.2 [facility] Serum creatinine measurement (mass/volume)Ordered By: Lawson Castellon on 07-29-2024 Creatinine [Mass/Vol] 1.11 mg/dL 0.70-1.20 [facility] Serum glucose measurement (m ass/volume)Ordered By: Lawson Castellon on 07-29-2024 Glucose [Mass/Vol] 400 mg/dL High 70-99 [facility] Serum or plasma calcium brenda urement (mass/volume)Ordered By: Lawson Castellon on 07-29-2024 Calcium [Mass/Vol] 9.3 mg/dL 7.6-11.0 [facility] Serum or plasma urea nitroge n measurement (mass/volume)Ordered By: Lawson Castellon on 07-29-2024 Urea nitrogen [Mass/Vol] 23 mg/dL High - [facility] Sodium levelOrdered By: Lawson Castellon on 07-29-2024 Sodium [Moles/Vol] 134 mmol/L 133-145 [facility] Troponin T.cardiac [Mass/vol ume] in Serum or Plasma by High sensitivity methodOrdered By: Lawson Castellon on 07-29-2024 Troponin T.cardiac High sensitivity method [Mass/Vol] 27 ng/L High <[address] [facility] Troponin T.cardiac High sensitivity method [Mass/Vol] 22 ng/L <[address] [facility] White blood cell (WBC) count Ordered By: ED PROVIDER on 07-29-2024 WBC (Bld) [#/Vol] 7.5 10*3/uL 4.4-11.0 [facility] MR/BMS.BVSon 07-14-2024 MR/BMS.BVS Normal [facility] Cardiology Visit Reporton Cardiology Visit Report Normal [facility] Basic Metabolic Profile (BMP )on 06-26-2024 BUN Normal 07-[address] [facility] Comment on above: Result Comment: Canc elled via OM: Order cancelled - Patient discharged Performed By: #### L 500.2500, L100.0500 ####[facility] [address] [place], [place], [phone] BUN/CRE Normal - [facility] Comment on above: Result Comment: Canc elled via OM: Order cancelled - Patient discharged Performed By: #### L 500.2500, L100.0500 ####[facility] [address] [place], [address] Calcium Normal 7.6-11.[address] [facility] Comment on above: Result Comment: Canc elled via OM: Order cancelled - Patient discharged Performed By: #### L 500.2500, L100.0500 ####[facility] [address] [place], [address] CL Normal 98-[address] [facility] Comment on above: Result Comment: Canc elled via OM: Order cancelled - Patient discharged Performed By: #### L 500.2500, L100.0500 ####[facility] [address] [place], [address] CO2 Normal 21.0-32.[address] [facility] Comment on above: Result Comment: Canc elled via OM: Order cancelled - Patient discharged Performed By: #### L 500.2500, L100.0500 ####[facility] [address] [place], [address] CREAT,SERUM Normal 0.70-1.[address] [facility] Comment on above: Result Comment: Canc elled via OM: Order cancelled - Patient discharged Performed By: #### L 500.2500, L100.0500 ####[facility] [address] [place], [address] eGFR Normal >[address] [facility] Comment on above: Result Comment: Canc elled via OM: Order cancelled - Patient discharged Performed By: #### L 500.2500, L100.0500 ####[facility] [address] [place], [address] GAP Normal 5-[address] [facility] Comment on above: Result Comment: Canc elled via OM: Order cancelled - Patient discharged Performed By: #### L 500.2500, L100.0500 ####[facility] [address] [place], [address] GLU Normal 70-[address] [facility] Comment on above: Result Comment: Canc elled via OM: Order cancelled - Patient discharged Performed By: #### L 500.2500, L100.0500 ####[facility] [address] [place], [address] Potassium Normal 3.3-5.[address] [facility] Comment on above: Result Comment: Canc elled via OM: Order cancelled - Patient discharged Performed By: #### L 500.2500, L100.0500 ####[facility] [address] [place], [address] Basic Metabolic Profile (BMP) Normal 133-[address] [facility] Comment on above: Result Comment: Canc elled via OM: Order cancelled - Patient discharged Performed By: #### L 500.2500, L100.0500 ####[facility] [address] [place], [address] CBC-Complete Blood Cnt No Di ffon 06-26-2024 HCT Normal 40-[address] [facility] Comment on above: Result Comment: Canc elled via OM: Order cancelled - Patient discharged Performed By: #### L 500.2500, L100.0500 ####[facility] [address] [place], [address] HGB Normal 13.0-16.[address] [facility] Comment on above: Result Comment: Canc elled via OM: Order cancelled - Patient discharged Performed By: #### L 500.2500, L100.0500 ####[facility] [address] [place], [address] MCH Normal 27.0-32.[address] [facility] Comment on above: Result Comment: Canc elled via OM: Order cancelled - Patient discharged Performed By: #### L 500.2500, L100.0500 ####[facility] [address] [place], [address] MCHC Normal 32-[address] [facility] Comment on above: Result Comment: Canc elled via OM: Order cancelled - Patient discharged Performed By: #### L 500.2500, L100.0500 ####[facility] [address] [place], [address] MCV Normal 80-[address] [facility] Comment on above: Result Comment: Canc elled via OM: Order cancelled - Patient discharged Performed By: #### L 500.2500, L100.0500 ####[facility] [address] [place], [address] PLT Normal 150-[address] [facility] Comment on above: Result Comment: Canc elled via OM: Order cancelled - Patient discharged Performed By: #### L 500.2500, L100.0500 ####[facility] [address] [place], [address] RBC Normal 4.6-6.[address] [facility] Comment on above: Result Comment: Canc elled via OM: Order cancelled - Patient discharged Performed By: #### L 500.2500, L100.0500 ####[facility] [address] [place], [address] RDW CV Normal 11.6-14.[address] [facility] Comment on above: Result Comment: Canc elled via OM: Order cancelled - Patient discharged Performed By: #### L 500.2500, L100.0500 ####[facility] [address] [place], [address] RDW SD Normal 35.1-43.[address] [facility] Comment on above: Result Comment: Canc elled via OM: Order cancelled - Patient discharged Performed By: #### L 500.2500, L100.0500 ####[facility] [address] [place], [address] WBC Normal 4.4-11.[address] [facility] Comment on above: Result Comment: Canc elled via OM: Order cancelled - Patient discharged Performed By: #### L 500.2500, L100.0500 ####[facility] [address] [place], [address] Basic Metabolic Profile (BMP )on 06-25-2024 BUN Normal 4-[address] [facility] Comment on above: Result Comment: Canc elled via OM: Order cancelled - Patient discharged Performed By: #### L 100.0500, L500.2500 ####[facility] [address] [place], [address] BUN/CRE Normal 10-[address] [facility] Comment on above: Result Comment: Canc elled via OM: Order cancelled - Patient discharged Performed By: #### L 100.0500, L500.2500 ####[facility] [address] [place], [address] Calcium Normal 7.6-11.[address] [facility] Comment on above: Result Comment: Canc elled via OM: Order cancelled - Patient discharged Performed By: #### L 100.0500, L500.2500 ####[facility] [address] [place], [address] CL Normal 98-[address] [facility] Comment on above: Result Comment: Canc elled via OM: Order cancelled - Patient discharged Performed By: #### L 100.0500, L500.2500 ####[facility] [address] [place], [address] CO2 Normal 21.0-32.[address] [facility] Comment on above: Result Comment: Canc elled via OM: Order cancelled - Patient discharged Performed By: #### L 100.0500, L500.2500 ####[facility] [address] [place], [address] CREAT,SERUM Normal 0.70-1.[address] [facility] Comment on above: Result Comment: Canc elled via OM: Order cancelled - Patient discharged Performed By: #### L 100.0500, L500.2500 ####[facility] [address] [place], [address] eGFR Normal >[address] [facility] Comment on above: Result Comment: Canc elled via OM: Order cancelled - Patient discharged Performed By: #### L 100.0500, L500.2500 ####[facility] [address] [place], [address] GAP Normal 5-[address] [facility] Comment on above: Result Comment: Canc elled via OM: Order cancelled - Patient discharged Performed By: #### L 100.0500, L500.2500 ####[facility] [address] [place], [address] GLU Normal 70-[address] [facility] Comment on above: Result Comment: Canc elled via OM: Order cancelled - Patient discharged Performed By: #### L 100.0500, L500.2500 ####[facility] [address] [place], [address] Potassium Normal 3.3-5.[address] [facility] Comment on above: Result Comment: Canc elled via OM: Order cancelled - Patient discharged Performed By: #### L 100.0500, L500.2500 ####[facility] [address] [place], [address] Basic Metabolic Profile (BMP) Normal 133-[address] [facility] Comment on above: Result Comment: Canc elled via OM: Order cancelled - Patient discharged Performed By: #### L 100.0500, L500.2500 ####[facility] [address] [place], [address] CBC-Complete Blood Cnt No Di ffon 06-25-2024 HCT Normal 40-[address] [facility] Comment on above: Result Comment: Canc elled via OM: Order cancelled - Patient discharged Performed By: #### L 100.0500, L500.2500 ####[facility] [address] [place], [address] HGB Normal 13.0-16.[address] [facility] Comment on above: Result Comment: Canc elled via OM: Order cancelled - Patient discharged Performed By: #### L 100.0500, L500.2500 ####[facility] [address] [place], [address] MCH Normal 27.0-32.[address] [facility] Comment on above: Result Comment: Canc elled via OM: Order cancelled - Patient discharged Performed By: #### L 100.0500, L500.2500 ####[facility] [address] [place], [address] MCHC Normal 32-[address] [facility] Comment on above: Result Comment: Canc elled via OM: Order cancelled - Patient discharged Performed By: #### L 100.0500, L500.2500 ####[facility] [address] [place], [address] MCV Normal 80-[address] [facility] Comment on above: Result Comment: Canc elled via OM: Order cancelled - Patient discharged Performed By: #### L 100.0500, L500.2500 ####[facility] [address] [place], [address] PLT Normal 150-[address] [facility] Comment on above: Result Comment: Canc elled via OM: Order cancelled - Patient discharged Performed By: #### L 100.0500, L500.2500 ####[facility] [address] [place], [address] RBC Normal 4.6-6.[address] [facility] Comment on above: Result Comment: Canc elled via OM: Order cancelled - Patient discharged Performed By: #### L 100.0500, L500.2500 ####[facility] [address] [place], [address] RDW CV Normal 11.6-14.[address] [facility] Comment on above: Result Comment: Canc elled via OM: Order cancelled - Patient discharged Performed By: #### L 100.0500, L500.2500 ####[facility] [address] [place], [address] RDW SD Normal 35.1-43.[address] [facility] Comment on above: Result Comment: Canc elled via OM: Order cancelled - Patient discharged Performed By: #### L 100.0500, L500.2500 ####[facility] [address] [place], [address] WBC Normal 4.4-11.[address] [facility] Comment on above: Result Comment: Canc elled via OM: Order cancelled - Patient discharged Performed By: #### L 100.0500, L500.2500 ####[facility] [address] [place], [address] Basic Metabolic Profile (BMP )on 06-24-2024 BUN Normal 4-[address] [facility] Comment on above: Result Comment: Canc elled via OM: Order cancelled - Patient discharged Performed By: #### L 500.2500, L100.0500 ####[facility] [address] [place], [address] BUN/CRE Normal 10-[address] [facility] Comment on above: Result Comment: Canc elled via OM: Order cancelled - Patient discharged Performed By: #### L 500.2500, L100.0500 ####[facility] [address] [place], [address] Calcium Normal 7.6-11.[address] [facility] Comment on above: Result Comment: Canc elled via OM: Order cancelled - Patient discharged Performed By: #### L 500.2500, L100.0500 ####[facility] [address] [place], [address] CL Normal 98-[address] [facility] Comment on above: Result Comment: Canc elled via OM: Order cancelled - Patient discharged Performed By: #### L 500.2500, L100.0500 ####[facility] [address] [place], [address] CO2 Normal 21.0-32.[address] [facility] Comment on above: Result Comment: Canc elled via OM: Order cancelled - Patient discharged Performed By: #### L 500.2500, L100.0500 ####[facility] [address] [place], [address] CREAT,SERUM Normal 0.70-1.[address] [facility] Comment on above: Result Comment: Canc elled via OM: Order cancelled - Patient discharged Performed By: #### L 500.2500, L100.0500 ####[facility] [address] [place], [address] eGFR Normal >[address] [facility] Comment on above: Result Comment: Canc elled via OM: Order cancelled - Patient discharged Performed By: #### L 500.2500, L100.0500 ####[facility] [address] [place], [address] GAP Normal 5-[address] [facility] Comment on above: Result Comment: Canc elled via OM: Order cancelled - Patient discharged Performed By: #### L 500.2500, L100.0500 ####[facility] [address] [place], [address] GLU Normal 70-[address] [facility] Comment on above: Result Comment: Canc elled via OM: Order cancelled - Patient discharged Performed By: #### L 500.2500, L100.0500 ####[facility] [address] [place], [address] Potassium Normal 3.3-5.[address] [facility] Comment on above: Result Comment: Canc elled via OM: Order cancelled - Patient discharged Performed By: #### L 500.2500, L100.0500 ####[facility] [address] [place], [address] Basic Metabolic Profile (BMP) Normal 133-[address] [facility] Comment on above: Result Comment: Canc elled via OM: Order cancelled - Patient discharged Performed By: #### L 500.2500, L100.0500 ####[facility] [address] [place], [address] CBC-Complete Blood Cnt No Di ffon 06-24-2024 HCT Normal 40-[address] [facility] Comment on above: Result Comment: Canc elled via OM: Order cancelled - Patient discharged Performed By: #### L 500.2500, L100.0500 ####[facility] [address] [place], [address] HGB Normal 13.0-16.[address] [facility] Comment on above: Result Comment: Canc elled via OM: Order cancelled - Patient discharged Performed By: #### L 500.2500, L100.0500 ####[facility] [address] [place], [address] MCH Normal 27.0-32.[address] [facility] Comment on above: Result Comment: Canc elled via OM: Order cancelled - Patient discharged Performed By: #### L 500.2500, L100.0500 ####[facility] [address] [place], [address] MCHC Normal 32-[address] [facility] Comment on above: Result Comment: Canc elled via OM: Order cancelled - Patient discharged Performed By: #### L 500.2500, L100.0500 ####[facility] [address] [place], [address] MCV Normal 80-[address] [facility] Comment on above: Result Comment: Canc elled via OM: Order cancelled - Patient discharged Performed By: #### L 500.2500, L100.0500 ####[facility] [address] [place], [address] PLT Normal 150-[address] [facility] Comment on above: Result Comment: Canc elled via OM: Order cancelled - Patient discharged Performed By: #### L 500.2500, L100.0500 ####[facility] [address] [place], [address] RBC Normal 4.6-6.[address] [facility] Comment on above: Result Comment: Canc elled via OM: Order cancelled - Patient discharged Performed By: #### L 500.2500, L100.0500 ####[facility] [address] [place], [address] RDW CV Normal 11.6-14.[address] [facility] Comment on above: Result Comment: Canc elled via OM: Order cancelled - Patient discharged Performed By: #### L 500.2500, L100.0500 ####[facility] [address] [place], [address] RDW SD Normal 35.1-43.[address] [facility] Comment on above: Result Comment: Canc elled via OM: Order cancelled - Patient discharged Performed By: #### L 500.2500, L100.0500 ####[facility] [address] [place], [address] WBC Normal 4.4-11.[address] [facility] Comment on above: Result Comment: Canc elled via OM: Order cancelled - Patient discharged Performed By: #### L 500.2500, L100.0500 ####[facility] [address] [place], [address] Basic Metabolic Profile (BMP )on 06-23-2024 BUN Normal 4-[address] [facility] Comment on above: Result Comment: Canc elled via OM: Order cancelled - Patient discharged Performed By: #### L 500.2500, L100.0500 ####[facility] [address] [place], [address] BUN/CRE Normal 10-[address] [facility] Comment on above: Result Comment: Canc elled via OM: Order cancelled - Patient discharged Performed By: #### L 500.2500, L100.0500 ####[facility] [address] [place], [address] Calcium Normal 7.6-11.[address] [facility] Comment on above: Result Comment: Canc elled via OM: Order cancelled - Patient discharged Performed By: #### L 500.2500, L100.0500 ####[facility] [address] [place], [address] CL Normal 98-[address] [facility] Comment on above: Result Comment: Canc elled via OM: Order cancelled - Patient discharged Performed By: #### L 500.2500, L100.0500 ####[facility] [address] [place], [address] CO2 Normal 21.0-32.[address] [facility] Comment on above: Result Comment: Canc elled via OM: Order cancelled - Patient discharged Performed By: #### L 500.2500, L100.0500 ####[facility] [address] [place], [address] CREAT,SERUM Normal 0.70-1.[address] [facility] Comment on above: Result Comment: Canc elled via OM: Order cancelled - Patient discharged Performed By: #### L 500.2500, L100.0500 ####[facility] [address] [place], [address] eGFR Normal >[address] [facility] Comment on above: Result Comment: Canc elled via OM: Order cancelled - Patient discharged Performed By: #### L 500.2500, L100.0500 ####[facility] [address] [place], [address] GAP Normal 5-[address] [facility] Comment on above: Result Comment: Canc elled via OM: Order cancelled - Patient discharged Performed By: #### L 500.2500, L100.0500 ####[facility] [address] [place], [address] GLU Normal 70-[address] [facility] Comment on above: Result Comment: Canc elled via OM: Order cancelled - Patient discharged Performed By: #### L 500.2500, L100.0500 ####[facility] [address] [place], [address] Potassium Normal 3.3-5.[address] [facility] Comment on above: Result Comment: Canc elled via OM: Order cancelled - Patient discharged Performed By: #### L 500.2500, L100.0500 ####[facility] [address] [place], [address] Basic Metabolic Profile (BMP) Normal 133-[address] [facility] Comment on above: Result Comment: Canc elled via OM: Order cancelled - Patient discharged Performed By: #### L 500.2500, L100.0500 ####[facility] [address] [place], [address] CBC-Complete Blood Cnt No Di ffon 06-23-2024 HCT Normal 40-[address] [facility] Comment on above: Result Comment: Canc elled via OM: Order cancelled - Patient discharged Performed By: #### L 500.2500, L100.0500 ####[facility] [address] [place], [address] HGB Normal 13.0-16.[address] [facility] Comment on above: Result Comment: Canc elled via OM: Order cancelled - Patient discharged Performed By: #### L 500.2500, L100.0500 ####[facility] [address] [place], [address] MCH Normal 27.0-32.[address] [facility] Comment on above: Result Comment: Canc elled via OM: Order cancelled - Patient discharged Performed By: #### L 500.2500, L100.0500 ####[facility] [address] [place], [address] MCHC Normal 32-[address] [facility] Comment on above: Result Comment: Canc elled via OM: Order cancelled - Patient discharged Performed By: #### L 500.2500, L100.0500 ####[facility] [address] [place], [address] MCV Normal 80-[address] [facility] Comment on above: Result Comment: Canc elled via OM: Order cancelled - Patient discharged Performed By: #### L 500.2500, L100.0500 ####[facility] [address] [place], [address] PLT Normal 150-[address] [facility] Comment on above: Result Comment: Canc elled via OM: Order cancelled - Patient discharged Performed By: #### L 500.2500, L100.0500 ####[facility] [address] [place], [address] RBC Normal 4.6-6.[address] [facility] Comment on above: Result Comment: Canc elled via OM: Order cancelled - Patient discharged Performed By: #### L 500.2500, L100.0500 ####[facility] [address] [place], [address] RDW CV Normal 11.6-14.[address] [facility] Comment on above: Result Comment: Canc elled via OM: Order cancelled - Patient discharged Performed By: #### L 500.2500, L100.0500 ####[facility] [address] [place], [address] RDW SD Normal 35.1-43.[address] [facility] Comment on above: Result Comment: Canc elled via OM: Order cancelled - Patient discharged Performed By: #### L 500.2500, L100.0500 ####[facility] [address] [place], [address] WBC Normal 4.4-11.[address] [facility] Comment on above: Result Comment: Canc elled via OM: Order cancelled - Patient discharged Performed By: #### L 500.2500, L100.0500 ####[facility] [address] [place], [address] Basic Metabolic Profile (BMP )on 06-22-2024 BUN Normal - [facility] Comment on above: Result Comment: Canc elled via OM: Order cancelled - Patient discharged Performed By: #### L 100.0500, L500.2500 ####[facility] [address] [place], [address] BUN/CRE Normal - [facility] Comment on above: Result Comment: Canc elled via OM: Order cancelled - Patient discharged Performed By: #### L 100.0500, L500.2500 ####[facility] [address] [place], [address] Calcium Normal 7.6-11.[address] [facility] Comment on above: Result Comment: Canc elled via OM: Order cancelled - Patient discharged Performed By: #### L 100.0500, L500.2500 ####[facility] [address] [place], [address] CL Normal 98-[address] [facility] Comment on above: Result Comment: Canc elled via OM: Order cancelled - Patient discharged Performed By: #### L 100.0500, L500.2500 ####[facility] [address] [place], [address] CO2 Normal 21.0-32.[address] [facility] Comment on above: Result Comment: Canc elled via OM: Order cancelled - Patient discharged Performed By: #### L 100.0500, L500.2500 ####[facility] [address] [place], [address] CREAT,SERUM Normal 0.70-1.[address] [facility] Comment on above: Result Comment: Canc elled via OM: Order cancelled - Patient discharged Performed By: #### L 100.0500, L500.2500 ####[facility] [address] [place], [address] eGFR Normal >[address] [facility] Comment on above: Result Comment: Canc elled via OM: Order cancelled - Patient discharged Performed By: #### L 100.0500, L500.2500 ####[facility] [address] [place], [address] GAP Normal 5-[address] [facility] Comment on above: Result Comment: Canc elled via OM: Order cancelled - Patient discharged Performed By: #### L 100.0500, L500.2500 ####[facility] [address] [place], [address] GLU Normal 70-[address] [facility] Comment on above: Result Comment: Canc elled via OM: Order cancelled - Patient discharged Performed By: #### L 100.0500, L500.2500 ####[facility] [address] [place], [address] Potassium Normal 3.3-5.[address] [facility] Comment on above: Result Comment: Canc elled via OM: Order cancelled - Patient discharged Performed By: #### L 100.0500, L500.2500 ####[facility] [address] [place], [address] Basic Metabolic Profile (BMP) Normal 133-[address] [facility] Comment on above: Result Comment: Canc elled via OM: Order cancelled - Patient discharged Performed By: #### L 100.0500, L500.2500 ####[facility] [address] [place], [address] CBC-Complete Blood Cnt No Di ffon 06-22-2024 HCT Normal 40-[address] [facility] Comment on above: Result Comment: Canc elled via OM: Order cancelled - Patient discharged Performed By: #### L 100.0500, L500.2500 ####[facility] [address] [place], [address] HGB Normal 13.0-16.[address] [facility] Comment on above: Result Comment: Canc elled via OM: Order cancelled - Patient discharged Performed By: #### L 100.0500, L500.2500 ####[facility] [address] [place], [address] MCH Normal 27.0-32.[address] [facility] Comment on above: Result Comment: Canc elled via OM: Order cancelled - Patient discharged Performed By: #### L 100.0500, L500.2500 ####[facility] [address] [place], [address] MCHC Normal 32-[address] [facility] Comment on above: Result Comment: Canc elled via OM: Order cancelled - Patient discharged Performed By: #### L 100.0500, L500.2500 ####[facility] [address] [place], [address] MCV Normal 80-[address] [facility] Comment on above: Result Comment: Canc elled via OM: Order cancelled - Patient discharged Performed By: #### L 100.0500, L500.2500 ####[facility] [address] [place], [address] PLT Normal 150-[address] [facility] Comment on above: Result Comment: Canc elled via OM: Order cancelled - Patient discharged Performed By: #### L 100.0500, L500.2500 ####[facility] [address] [place], [address] RBC Normal 4.6-6.[address] [facility] Comment on above: Result Comment: Canc elled via OM: Order cancelled - Patient discharged Performed By: #### L 100.0500, L500.2500 ####[facility] [address] [place], [address] RDW CV Normal 11.6-14.[address] [facility] Comment on above: Result Comment: Canc elled via OM: Order cancelled - Patient discharged Performed By: #### L 100.0500, L500.2500 ####[facility] [address] [place], [address] RDW SD Normal 35.1-43.[address] [facility] Comment on above: Result Comment: Canc elled via OM: Order cancelled - Patient discharged Performed By: #### L 100.0500, L500.2500 ####[facility] [address] [place], [address] WBC Normal 4.4-11.[address] [facility] Comment on above: Result Comment: Canc elled via OM: Order cancelled - Patient discharged Performed By: #### L 100.0500, L500.2500 ####[facility] [address] [place], [address] Basic Metabolic Profile (BMP )on 06-21-2024 BUN Normal 4-[address] [facility] Comment on above: Result Comment: Canc elled via OM: Order cancelled - Patient discharged Performed By: #### L 100.0500, L500.2500 ####[facility] [address] [place], [address] BUN/CRE Normal 10-[address] [facility] Comment on above: Result Comment: Canc elled via OM: Order cancelled - Patient discharged Performed By: #### L 100.0500, L500.2500 ####[facility] [address] [place], [address] Calcium Normal 7.6-11.[address] [facility] Comment on above: Result Comment: Canc elled via OM: Order cancelled - Patient discharged Performed By: #### L 100.0500, L500.2500 ####[facility] [address] [place], [address] CL Normal 98-[address] [facility] Comment on above: Result Comment: Canc elled via OM: Order cancelled - Patient discharged Performed By: #### L 100.0500, L500.2500 ####[facility] [address] [place], [address] CO2 Normal 21.0-32.[address] [facility] Comment on above: Result Comment: Canc elled via OM: Order cancelled - Patient discharged Performed By: #### L 100.0500, L500.2500 ####[facility] [address] [place], [address] CREAT,SERUM Normal 0.70-1.[address] [facility] Comment on above: Result Comment: Canc elled via OM: Order cancelled - Patient discharged Performed By: #### L 100.0500, L500.2500 ####[facility] [address] [place], [address] eGFR Normal >[address] [facility] Comment on above: Result Comment: Canc elled via OM: Order cancelled - Patient discharged Performed By: #### L 100.0500, L500.2500 ####[facility] [address] [place], [address] GAP Normal 5-[address] [facility] Comment on above: Result Comment: Canc elled via OM: Order cancelled - Patient discharged Performed By: #### L 100.0500, L500.2500 ####[facility] [address] [place], [address] GLU Normal 70-[address] [facility] Comment on above: Result Comment: Canc elled via OM: Order cancelled - Patient discharged Performed By: #### L 100.0500, L500.2500 ####[facility] [address] [place], [address] Potassium Normal 3.3-5.[address] [facility] Comment on above: Result Comment: Canc elled via OM: Order cancelled - Patient discharged Performed By: #### L 100.0500, L500.2500 ####[facility] [address] [place], [address] Basic Metabolic Profile (BMP) Normal 133-[address] [facility] Comment on above: Result Comment: Canc elled via OM: Order cancelled - Patient discharged Performed By: #### L 100.0500, L500.2500 ####[facility] [address] [place], [address] CBC-Complete Blood Cnt No Di ffon 06-21-2024 HCT Normal 40-[address] [facility] Comment on above: Result Comment: Canc elled via OM: Order cancelled - Patient discharged Performed By: #### L 100.0500, L500.2500 ####[facility] [address] [place], [address] HGB Normal 13.0-16.[address] [facility] Comment on above: Result Comment: Canc elled via OM: Order cancelled - Patient discharged Performed By: #### L 100.0500, L500.2500 ####[facility] [address] [place], [address] MCH Normal 27.0-32.[address] [facility] Comment on above: Result Comment: Canc elled via OM: Order cancelled - Patient discharged Performed By: #### L 100.0500, L500.2500 ####[facility] [address] [place], [address] MCHC Normal 32-[address] [facility] Comment on above: Result Comment: Canc elled via OM: Order cancelled - Patient discharged Performed By: #### L 100.0500, L500.2500 ####[facility] [address], [address] MCV Normal 80-[address] [facility] Comment on above: Result Comment: Canc elled via OM: Order cancelled - Patient discharged Performed By: #### L 100.0500, L500.2500 ####[facility] [address] [place], [address] PLT Normal 150-[address] [facility] Comment on above: Result Comment: Canc elled via OM: Order cancelled - Patient discharged Performed By: #### L 100.0500, L500.2500 ####[facility] [address] [place], [address] RBC Normal 4.6-6.[address] [facility] Comment on above: Result Comment: Canc elled via OM: Order cancelled - Patient discharged Performed By: #### L 100.0500, L500.2500 ####[facility] [address] [place], [address] RDW CV Normal 11.6-14.[address] [facility] Comment on above: Result Comment: Canc elled via OM: Order cancelled - Patient discharged Performed By: #### L 100.0500, L500.2500 ####[facility] [address] [place], [address] RDW SD Normal 35.1-43.[address] [facility] Comment on above: Result Comment: Canc elled via OM: Order cancelled - Patient discharged Performed By: #### L 100.0500, L500.2500 ####[facility] [address] [place], [address] WBC Normal 4.4-11.[address] [facility] Comment on above: Result Comment: Canc elled via OM: Order cancelled - Patient discharged Performed By: #### L 100.0500, L500.2500 ####[facility] [address] [place], [address] Anion gap in Serum or Plasma Ordered By: Donna Wolff on 06-20-2024 Anion gap [Moles/Vol] 14 mmol/L 5-15 [facility] BUN/creatinine ratioOrdered By: Donna Wolff on 06-20-2024 Urea nitrogen/Creatinine [Mass ratio] 27.2 mg/mg High 10-[address] [facility] Basic Metabolic Profile (BMP )on 06-20-2024 BUN/CRE 27.2 RATIO High 10-[address] [facility] Comment on above: Performed By: #### L 500.2500, L100.0500 ####[facility] [address] [place], [address] Calcium [Mass/Vol] 9.5 mg/dL Normal 7.6-11.0 [facility] Comment on above: Performed By: #### L 500.2500, L100.0500 ####[facility] [address] [place], [address] Chloride [Moles/Vol] 100 mmol/L Normal 98-108 [facility] Comment on above: Performed By: #### L 500.2500, L100.0500 ####[facility] [address] [place], [address] CO2 [Moles/Vol] 24.8 mmol/L Normal 21.0-32.[address] [facility] Comment on above: Performed By: #### L 500.2500, L100.0500 ####[facility] [address] [place], [address] Creatinine [Mass/Vol] 1.07 mg/dL Normal 0.70-1.20 [facility] Comment on above: Performed By: #### L 500.2500, L100.0500 ####[facility] [address] [place], [address] ECRCL 74.28 ml/min Normal 50-[address] [facility] Comment on above: Performed By: #### L 500.2500, L100.0500 ####[facility] [address] [place], [address] GAP 14 Normal 5-[address] [facility] Comment on above: Performed By: #### L 500.2500, L100.0500 ####[facility] [address] [place], [address] GFR/1.73 sq M.predicted among non-blacks MDRD (S/P/Bld) [Vol rate/Area] 77 mL/min/{1.73_m2} Normal >[address] [facility] Comment on above: Result Comment: mL/m in/1.73m2 CKD-EPI Creatinine Equation (2020) Performed By: #### L 500.2500, L100.0500 ####[facility] [address] [place], [address] Glucose [Mass/Vol] 110 mg/dL High 70-99 [facility] Comment on above: Performed By: #### L 500.2500, L100.0500 ####[facility] [address] [place], [address] Potassium [Moles/Vol] 3.8 mmol/L Normal 3.3-5.1 [facility] Comment on above: Performed By: #### L 500.2500, L100.0500 ####[facility] [address] [place], [address] Sodium [Moles/Vol] 138 mmol/L Normal 133-145 [facility] Comment on above: Performed By: #### L 500.2500, L100.0500 ####[facility] [address] [place], [address] Urea nitrogen [Mass/Vol] 29 mg/dL High 4-[address] [facility] Comment on above: Performed By: #### L 500.2500, L100.0500 ####[facility] [address] [place], [address] Bedside Glucoseon 06-20-2024 FINGERSTICK GLU 127 mg/dL High 74-[address] [facility] Comment on above: Result Comment: SNEHA DUNCAN OF PATIENT CARE PER NURSING PROTOCOL Performed By: #### L 501.080 ####[facility] [address] [place], [address] CBC-Complete Blood Cnt No Di ffon 06-20-2024 Erythrocyte distribution width (RBC) [Ratio] 13.0 % Normal 11.6-14.[address] [facility] Comment on above: Performed By: #### L 500.2500, L100.0500 ####[facility] [address] [place], [address] Hematocrit (Bld) [Volume fraction] 50.5 % Normal 40-[address] [facility] Comment on above: Performed By: #### L 500.2500, L100.0500 ####[facility] [address] [place], [address] Hemoglobin (Bld) [Mass/Vol] 16.8 g/dL High 13.0-16.[address] [facility] Comment on above: Performed By: #### L 500.2500, L100.0500 ####[facility] [address] [place], [address] MCH (RBC) [Entitic mass] 30.8 pg Normal 27.0-32.[address] [facility] Comment on above: Performed By: #### L 500.2500, L100.0500 ####[facility] [address] [place], [address] MCHC (RBC) [Mass/Vol] 33.3 g/dL Normal 32-36 [facility] Comment on above: Performed By: #### L 500.2500, L100.0500 ####[facility] [address] [place], [address] MCV (RBC) [Entitic vol] 92.5 fL Normal 80-94 [facility] Comment on above: Performed By: #### L 500.2500, L100.0500 ####[facility] [address] [place], [address] Platelet mean volume (Bld) [Entitic vol] 10.1 fL Normal 6.2-12.[address] [facility] Comment on above: Performed By: #### L 500.2500, L100.0500 ####[facility] [address] [place], [address] Platelets (Bld) [#/Vol] 295 10*3/uL Normal 150-[address] [facility] Comment on above: Performed By: #### L 500.2500, L100.0500 ####[facility] [address] [place], [address] RBC (Bld) [#/Vol] 5.46 10*6/uL Normal 4.6-6.2 [facility] Comment on above: Performed By: #### L 500.2500, L100.0500 ####[facility] [address] [place], [address] RDW SD 43.8 fl Normal 35.1-43.[address] [facility] Comment on above: Performed By: #### L 500.2500, L100.0500 ####[facility] [address] [place], [address] WBC (Bld) [#/Vol] 14.2 10*3/uL High 4.4-11.0 [facility] Comment on above: Performed By: #### L 500.2500, L100.0500 ####[facility] [address] [place], [address] Carbon dioxide, total [Moles /volume] in Central venous bloodOrdered By: Donna Wolff on 06-20-2024 CO2 [Moles/Vol] 24.8 mmol/L 21.0-32.[address] [facility] Chloride assayOrdered By: Nilson Wolff on 06-20-2024 Chloride [Moles/Vol] 100 mmol/L 98-108 [facility] Discharge Instructionon 06-04 Discharge Instruction Normal [facility] Erythrocyte distribution wid th ratioOrdered By: Donna Wolff on 06-20-2024 Erythrocyte distribution width (RBC) [Ratio] 13.0 % 11.6-14.[address] [facility] Erythrocyte distribution wid th standard deviationOrdered By: Donna Wolff on 06-20-2024 Erythrocyte distribution width (RBC) [Ratio] 43.8 fl 35.1-43.[address] [facility] Glomerular filtration rate ( GFR) estimation/1.73 sq m using serum, plasma, or whole bOrdered By: Donna Wolff on 06-20-2024 GFR/1.73 sq M.predicted among non-blacks MDRD (S/P/Bld) [Vol rate/Area] 77 mL/min/{1.73_m2} >[address] [facility] deOrdered By: Donna Wolff on 06-20-2024 Glucose [Mass/Vol] 127 mg/dL High 74-106 [facility] Hematocrit Auto (Bld) [Volum e fraction]Ordered By: Donna Wolff on 06-20-2024 Hematocrit (Bld) [Volume fraction] 50.5 % 40-[address] [facility] Hemoglobin measurementOrdere d By: Donna Wolff on 06-20-2024 Hemoglobin (Bld) [Mass/Vol] 16.8 g/dL High 13.0-16.[address] [facility] MCV (mean corpuscular volume ) determinationOrdered By: Donna Wolff on 06-20-2024 MCV (RBC) [Entitic vol] 92.5 fL 80-94 [facility] Mean corpuscular hemoglobin (MCH) determinationOrdered By: Donna Wolff on 06-20-2024 MCH (RBC) [Entitic mass] 30.8 pg 27.0-32.[address] [facility] Platelet countOrdered By: Nilson Wolff on 06-20-2024 Platelets (Bld) [#/Vol] 295 10*3/uL 150-[address] [facility] Potassium measurement (mass/ volume)Ordered By: Donna Wolff on 06-20-2024 Potassium (Unsp spec) [Mass/Vol] 3.8 mmol/L 3.3-5.[address] [facility] RBC Auto (Bld) [#/Vol]Ordere d By: Donna Wolff on 06-20-2024 RBC (Bld) [#/Vol] 5.46 10*6/uL 4.6-6.2 [facility] Serum creatinine measurement (mass/volume)Ordered By: Donna Wolff on 06-20-2024 Creatinine [Mass/Vol] 1.07 mg/dL 0.70-1.20 [facility] Serum glucose measurement (m ass/volume)Ordered By: Donna Wolff on 06-20-2024 Glucose [Mass/Vol] 110 mg/dL High 70-99 [facility] Serum or plasma calcium brenda urement (mass/volume)Ordered By: Donna Wolff on 06-20-2024 Calcium [Mass/Vol] 9.5 mg/dL 7.6-11.0 [facility] Serum or plasma urea nitroge n measurement (mass/volume)Ordered By: Donna Wolff on 06-20-2024 Urea nitrogen [Mass/Vol] 29 mg/dL High 4-[address] [facility] Sodium levelOrdered By: Gretta Wolff on 06-20-2024 Sodium [Moles/Vol] 138 mmol/L 133-145 [facility] Stress Reporton 06-20-2024 Stress Report Normal [facility] White blood cell (WBC) count Ordered By: Donna Wolff on 06-20-2024 WBC (Bld) [#/Vol] 14.2 10*3/uL High 4.4-11.0 [facility] Absolute lymphocyte countOrd ered By: Steve Donald on 06-19-2024 Lymphocytes Auto (Unsp spec) [#/Vol] 1.12 10*3/uL 0.83-4.[address] [facility] Automated lymphocyte count a s percentage of total leukocytesOrdered By: Steve Donald on 06-19-2024 Lymphocytes/100 WBC Auto (Unsp spec) 9.8 % Low 19-[address] [facility] Basophil percentageOrdered B y: Steve Donald on 06-19-2024 Basophils/100 WBC (Bld) 0.1 % 0-1 [facility] Bedside Glucoseon 06-19-2024 FINGERSTICK GLU 220 mg/dL High 74-[address] [facility] Comment on above: Result Comment: SNEHA GEMENT OF PATIENT CARE PER NURSING PROTOCOL Performed By: #### L 501.080 ####[facility] [address] [place], [address] FINGERSTICK GLU 431 mg/dL High [address] [place] [address] Comment on above: Result Comment: SNEHA GEMENT OF PATIENT CARE PER NURSING PROTOCOL Performed By: #### L 501.080 ####[facility] [address] [place], [address] FINGERSTICK GLU 387 mg/dL High [address] [place] [address] Comment on above: Result Comment: SNEHA GEMENT OF PATIENT CARE PER NURSING PROTOCOL Performed By: #### L 501.080 ####[facility] [address] [place], [address] FINGERSTICK GLU 292 mg/dL High [address] [place] [address] Comment on above: Result Comment: SNEHA GEMENT OF PATIENT CARE PER NURSING PROTOCOL Performed By: #### L 501.080 ####[facility] [address] [place], [address] Bilirubin, totalOrdered By: Steve Donald on 06-19-2024 Bilirubin [Mass/Vol] 0.63 mg/dL 0.00-1.30 [facility] CBC W/Diff, Automatedon 06-04 Absolute Lymph 1.12 X10 3/uL Normal 0.83-4.[address] [facility] Comment on above: Performed By: #### L 501.9985, L500.4050, L501.2300, L100.0100 ####[facility] [address] [place], [address] Absolute Neut 9.8 X10 3/uL High 2.0-7.[address] [facility] Comment on above: Performed By: #### L 501.9985, L500.4050, L501.2300, L100.0100 ####[facility] [address] [place], [address] Basophils/100 WBC (Bld) 0.1 % Normal 0-1 [facility] Comment on above: Performed By: #### L 501.9985, L500.4050, L501.2300, L100.0100 ####[facility] [address] [place], [address] Eosinophils/100 WBC (Bld) 0.0 % Normal 0-[address] [facility] Comment on above: Performed By: #### L 501.9985, L500.4050, L501.2300, L100.0100 ####[facility] [address] [place], [address] Erythrocyte distribution width (RBC) [Ratio] 12.8 % Normal 11.6-14.[address] [facility] Comment on above: Performed By: #### L 501.9985, L500.4050, L501.2300, L100.0100 ####[facility] [address] [place], [address] Hematocrit (Bld) [Volume fraction] 49.9 % Normal 40-[address] [facility] Comment on above: Performed By: #### L 501.9985, L500.4050, L501.2300, L100.0100 ####[facility] [address] [place], [address] Hemoglobin (Bld) [Mass/Vol] 16.8 g/dL High 13.0-16.[address] [facility] Comment on above: Performed By: #### L 501.9985, L500.4050, L501.2300, L100.0100 ####[facility] [address] [place], [address] IG% 0.700 Normal 0.0-0.[address] [facility] Comment on above: Result Comment: IG% - Immature Granulocytes (promyelocytes, myelocytes andmetamyelocytes) > 1% indicates that a LEFT SHIFT is Present. Performed By: #### L 501.9985, L500.4050, L501.2300, L100.0100 ####[facility] [address] [place], [address] Lymphocytes/100 WBC (Bld) 9.8 % Low 19-[address] [facility] Comment on above: Performed By: #### L 501.9985, L500.4050, L501.2300, L100.0100 ####[facility] [address] [place], [address] MCH (RBC) [Entitic mass] 31.3 pg Normal 27.0-32.[address] [facility] Comment on above: Performed By: #### L 501.9985, L500.4050, L501.2300, L100.0100 ####[facility] [address] [place], [address] MCHC (RBC) [Mass/Vol] 33.7 g/dL Normal 32-36 [facility] Comment on above: Performed By: #### L 501.9985, L500.4050, L501.2300, L100.0100 ####[facility] [address] [place], [address] MCV (RBC) [Entitic vol] 92.9 fL Normal 80-94 [facility] Comment on above: Performed By: #### L 501.9985, L500.4050, L501.2300, L100.0100 ####[facility] [address] [place], [address] Monocytes/100 WBC (Bld) 3.2 % Normal 0-10 [facility] Comment on above: Performed By: #### L 501.9985, L500.4050, L501.2300, L100.0100 ####[facility] [address] [place], [address] Neutrophils/100 WBC (Bld) 86.2 % High 47-[address] [facility] Comment on above: Performed By: #### L 501.9985, L500.4050, L501.2300, L100.0100 ####[facility] [address] [place], [address] Nucleated RBC (Bld) [#/Vol] 0 10*3/uL Normal 0-[address] [facility] Comment on above: Performed By: #### L 501.9985, L500.4050, L501.2300, L100.0100 ####[facility] [address] [place], [address] Platelet mean volume (Bld) [Entitic vol] 10.4 fL Normal 6.2-12.[address] [facility] Comment on above: Performed By: #### L 501.9985, L500.4050, L501.2300, L100.0100 ####[facility] [address] [place], [address] Platelets (Bld) [#/Vol] 290 10*3/uL Normal 150-[address] [facility] Comment on above: Performed By: #### L 501.9985, L500.4050, L501.2300, L100.0100 ####[facility] [address] [place], [address] RBC (Bld) [#/Vol] 5.37 10*6/uL Normal 4.6-6.2 [facility] Comment on above: Performed By: #### L 501.9985, L500.4050, L501.2300, L100.0100 ####[facility] [address] [place], [address] RDW SD 43.8 fl Normal 35.1-43.[address] [facility] Comment on above: Performed By: #### L 501.9985, L500.4050, L501.2300, L100.0100 ####[facility] [address] [place], [address] WBC (Bld) [#/Vol] 11.4 10*3/uL High 4.4-11.0 [facility] Comment on above: Performed By: #### L 501.9985, L500.4050, L501.2300, L100.0100 ####[facility] [address] [place], [address] Chest 1 View (Portable)on Chest 1 View (Portable) Normal [facility] Comprehensive Metabolic Prof ilon 06-19-2024 GAP 17 High 5-[address] [facility] Comment on above: Performed By: #### L 501.9985, L500.4050, L501.2300, L100.0100 ####[facility] [address] [place], [address] Albumin [Mass/Vol] 4.1 g/dL Normal 3.4-4.8 [facility] Comment on above: Performed By: #### L 501.9985, L500.4050, L501.2300, L100.0100 ####[facility] [address] [place], [address] Albumin/Globulin [Mass ratio] 1.2 {ratio} Normal 0.9-2.[address] [facility] Comment on above: Performed By: #### L 501.9985, L500.4050, L501.2300, L100.0100 ####[facility] [address] [place], [address] ALK PHOS 89 U/L Normal 40-[address] [facility] Comment on above: Performed By: #### L 501.9985, L500.4050, L501.2300, L100.0100 ####[facility] [address] [place], [address] ALT [Catalytic activity/Vol] 38 U/L Normal <=[address] [facility] Comment on above: Performed By: #### L 501.9985, L500.4050, L501.2300, L100.0100 ####[facility] [address] [place], [address] AST [Catalytic activity/Vol] 26 U/L Normal <=[address] [facility] Comment on above: Performed By: #### L 501.9985, L500.4050, L501.2300, L100.0100 ####[facility] [address] [place], [address] Bilirubin [Mass/Vol] 0.63 mg/dL Normal 0.00-1.30 [facility] Comment on above: Performed By: #### L 501.9985, L500.4050, L501.2300, L100.0100 ####[facility] [address] [place], [address] BUN/CRE 24.5 RATIO High 10-[address] [facility] Comment on above: Performed By: #### L 501.9985, L500.4050, L501.2300, L100.0100 ####[facility] [address], [address] Calcium [Mass/Vol] 9.6 mg/dL Normal 7.6-11.0 [facility] Comment on above: Performed By: #### L 501.9985, L500.4050, L501.2300, L100.0100 ####[facility] [address] [place], [address] Chloride [Moles/Vol] 97 mmol/L Low 98-108 [facility] Comment on above: Performed By: #### L 501.9985, L500.4050, L501.2300, L100.0100 ####[facility] [address] [place], [address] CO2 [Moles/Vol] 19.8 mmol/L Low 21.0-32.[address] [facility] Comment on above: Performed By: #### L 501.9985, L500.4050, L501.2300, L100.0100 ####[facility] [address] [place], [address] Creatinine [Mass/Vol] 1.12 mg/dL Normal 0.70-1.20 [facility] Comment on above: Performed By: #### L 501.9985, L500.4050, L501.2300, L100.0100 ####[facility] [address] [place], [address] ECRCL 70.97 ml/min Normal 50-[address] [facility] Comment on above: Performed By: #### L 501.9985, L500.4050, L501.2300, L100.0100 ####[facility] [address] [place], [address] GFR/1.73 sq M.predicted among non-blacks MDRD (S/P/Bld) [Vol rate/Area] 73 mL/min/{1.73_m2} Normal >[address] [facility] Comment on above: Result Comment: mL/m in/1.73m2 CKD-EPI Creatinine Equation (2020) Performed By: #### L 501.9985, L500.4050, L501.2300, L100.0100 ####[facility] [address] [place], [address] Globulin (S) [Mass/Vol] 3.5 g/dL Normal 2.2-4.2 [facility] Comment on above: Performed By: #### L 501.9985, L500.4050, L501.2300, L100.0100 ####[facility] [address] [place], [address] Glucose [Mass/Vol] 324 mg/dL High 70-99 [facility] Comment on above: Performed By: #### L 501.9985, L500.4050, L501.2300, L100.0100 ####[facility] [address] [place], [address] Potassium [Moles/Vol] 4.3 mmol/L Normal 3.3-5.1 [facility] Comment on above: Performed By: #### L 501.9985, L500.4050, L501.2300, L100.0100 ####[facility] [address], [address] Sodium [Moles/Vol] 134 mmol/L Normal 133-145 [facility] Comment on above: Performed By: #### L 501.9985, L500.4050, L501.2300, L100.0100 ####[facility] [address], [address] T PROT 7.6 g/dL Normal 5.9-8.[address] [facility] Comment on above: Performed By: #### L 501.9985, L500.4050, L501.2300, L100.0100 ####[facility] [address], [address] Urea nitrogen [Mass/Vol] 27 mg/dL High 4-[address] [facility] Comment on above: Performed By: #### L 501.9985, L500.4050, L501.2300, L100.0100 ####[facility] [address] [place], [address] Eosinophil percentageOrdered By: Steve Donald on 06-19-2024 Eosinophils/100 WBC (Bld) 0.0 % 0-[address] [facility] Hemoglobin A1con 06-19-2024 HbA1c (Bld) [Mass fraction] 12.4 % Normal <=5.[address] [facility] Comment on above: Performed By: #### L 501.9985, L500.4050, L501.2300, L100.0100 ####[facility] [address] [place], [place], [id number] Hemoglobin A1c percentageOrd ered By: Steve Donald on 06-19-2024 HbA1c (Bld) [Mass fraction] 12.4 % >5.[address] [facility] Immature granulocytes/100 WB C Auto (Bld)Ordered By: Steve Donald on 06-19-2024 Immature granulocytes/100 WBC (Bld) 0.700 % 0.0-0.[address] [facility] Monocyte percentageOrdered B y: Steve Donald on 06-19-2024 Monocytes/100 WBC (Bld) 3.2 % 0-10 [facility] Neutrophil percentageOrdered By: Steve Donald on 06-19-2024 Neutrophils/100 WBC (Bld) 86.2 % High 47-[address] [facility] No Panel InformationOrdered By: Steve Donald on 06-19-2024 26 U/L <[address] [facility] Phosphoruson 06-19-2024 Phosphate [Mass/Vol] 4.4 mg/dL Normal 2.7-4.5 [facility] Comment on above: Performed By: #### L 501.9985, L500.4050, L501.2300, L100.0100 ####[facility] [address] [facility] [place], [place], [address] Serum globulin measurementOr dered By: tSeve Donald on 06-19-2024 Globulin (S) [Mass/Vol] 3.5 g/dL 2.2-4.2 [facility] Serum or plasma alanine martino otransferase (ALT) measurementOrdered By: Steve Donald on 06-19-2024 ALT [Catalytic activity/Vol] 38 U/L <[address] [facility] Serum or plasma albumin brenda urement (mass/volume)Ordered By: Setve Donald on 06-19-2024 Albumin [Mass/Vol] 4.1 g/dL 3.4-4.8 [facility] Serum or plasma albumin/glob ulin mass ratioOrdered By: Steve Donald on 06-19-2024 Albumin/Globulin [Mass ratio] 1.2 {ratio} 0.9-2.[address] [facility] Serum or plasma alkaline yulia sphatase measurementOrdered By: Steve Donald on 06-19-2024 ALP [Catalytic activity/Vol] 89 U/L 40-[address] [facility] Total proteinOrdered By: Sidney Donald on 06-19-2024 Protein [Mass/Vol] 7.6 g/dL 5.9-8.4 [facility] Assessment of wrist artery p atency prior to arterial punctureOrdered By: Steve Donald on 06-18-2024 Arterial patency Wrist artery --pre arterial puncture Positive [facility] Bedside Glucoseon 06-18-2024 FINGERSTICK GLU 434 mg/dL High [address] [place] [address] Comment on above: Result Comment: SNEHA GEMENT OF PATIENT CARE PER NURSING PROTOCOL Performed By: #### L 501.080 ####[facility] [address] [facility] [address] FINGERSTICK GLU 429 mg/dL High [address] [place] [address] Comment on above: Result Comment: Dr Manjit solis FollowedMANAGEMENT OF PATIENT CARE PER NURSING PROTOCOL Performed By: #### L 501.080 ####[facility] [address] [facility] [address] FINGERSTICK GLU 321 mg/dL High [address] [place] [address] Comment on above: Result Comment: SNEHA GEMENT OF PATIENT CARE PER NURSING PROTOCOL Performed By: #### L 501.080 ####[facility] [address] [facility] [address] FINGERSTICK GLU 282 mg/dL High [address] [place] [address] Comment on above: Result Comment: SNEHA GEMENT OF PATIENT CARE PER NURSING PROTOCOL Performed By: #### L 501.080 ####[facility] [address] [place], [address] Bilirubin Test strip Ql (U)O rdered By: Steve Donald on 06-18-2024 Bilirubin Ql (U) Negative Negative [facility] Blood Gases by CPSon 025 MOY TEST Positive Normal [facility] Comment on above: Performed By: #### L 9000.0800 ####[facility] [address] [place], [address] Base excess Calc (Bld) [Moles/Vol] 2 mmol/L Normal -2 to +[address] [facility] Comment on above: Performed By: #### L 9000.0800 ####[facility] [address] [place], [address] Blood Gas Type ART Normal [facility] Comment on above: Performed By: #### L 9000.0800 ####[facility] [address] [place], [address] CO2 [Moles/Vol] 28 mmol/L Normal [facility] Comment on above: Performed By: #### L 9000.0800 ####[facility] [address] [place], [address] Comment 17/11 12 30% Normal [facility] Comment on above: Performed By: #### L 9000.0800 ####[facility] [address] [place], [address] FI02 30.[address] [facility] Comment on above: Performed By: #### L 9000.0800 ####[facility] [address] [place], [address] HCO3 (Bld) [Moles/Vol] 26.7 mmol/L High 22-26 [facility] Comment on above: Performed By: #### L 9000.0800 ####[facility] [address] [place], [address] Mode Not entered Normal [facility] Comment on above: Performed By: #### L 9000.0800 ####[facility] [address] [place], [address] O2 Delivery Dev BiPAP Normal [facility] Comment on above: Performed By: #### L 9000.0800 ####[facility] [address] [place], [address] pCO2 41.5 mmHg Normal 35-[address] [facility] Comment on above: Performed By: #### L 9000.0800 ####[facility] [address] [place], [address] pH (Bld) 7.42 [pH] Normal 7.35-7.[address] [facility] Comment on above: Performed By: #### L 9000.0800 ####[facility] [address] [place], [address] PO2 73 mmHG Low 75-[address] [facility] Comment on above: Performed By: #### L 9000.0800 ####[facility] [address] [place], [address] SITE R Radial Normal [facility] Comment on above: Performed By: #### L 9000.0800 ####[facility] [address] [place], [address] SO2 95 Normal 95-[address] [facility] Comment on above: Performed By: #### L 9000.0800 ####[facility] [address] [place], [address] Blood base excess determinat ionOrdered By: Steve Donald on 06-18-2024 Base excess Calc (BldV) [Moles/Vol] 2 mmol/L -2-[address] [facility] Blood bicarbonate measuremen tOrdered By: Steve Donald on 06-18-2024 HCO3 (Bld) [Moles/Vol] 26.7 mmol/L High 22-26 [facility] CTA Chest W/WO Contraston CTA Chest W/WO Contrast Normal [facility] Consultation - Cardiologyon 06-18-2024 Consultation - Cardiology Normal [facility] Echo Complete W/ Contraston 06-18-2024 Echo Complete W/ Contrast Normal [facility] Emergency Department Summary on 06-18-2024 Emergency Department Summary Normal [facility] H AND P Exam - Hospitaliston 06-18-2024 H&P Exam - Hospitalist Normal [facility] Influenza virus A and B and SARS-CoV-2 (COVID-19) and Respiratory syncytial virus RNAOrdered By: Jevon Osorio on 06-18-2024 SARS-CoV-2 (COVID-19) RNA HAYDER+probe Ql (Unsp spec) [facility] Ketones Test strip Ql (U)Ord ered By: Steve Donald on 06-18-2024 Ketones Ql (U) Negative Negative [facility] L499.0042on 06-18-2024 Trop T High Sen 84 ng/L Invalid Interpretation Code <=[address] [facility] Comment on above: Result Comment: Crit ical Result(s) Called at: 0219 by:??NBURNS TO EFINKResults read back by same. Performed By: #### L 499.0042 ####[facility] [address] [place], [place], [address] L499.0043on 06-18-2024 Trop T High Sen 88 ng/L Invalid Interpretation Code <=[address] [facility] Comment on above: Result Comment: Crit ical Result(s) Called at 0334: by: NBURNS TOEAFFOLTER??Results read back by same. Performed By: #### L 499.0043 ####[facility] [address] [facility] [place], [address] L503.7505on 06-18-2024 Natriuretic peptide B (Bld) [Mass/Vol] 2490 pg/mL High <=[address] [facility] Comment on above: Result Comment: Hear t Failure Unlikely: < 300 pg/mLHeart Failure Likely< 50 Years: > 450 pg/mL50-75 Years: > 900 pg/mL>75 Years: > 1800 pg/mL Performed By: #### L 503.7505 ####[facility] [address] [place], [address] M100.678on 06-18-2024 M100.678 SARS-CoV-2 (COVID 19 ) Negative INFLUENZA A Negative INFLUENZA B Negative RSV PCR Negative Normal [facility] Comment on above: Performed By: #### M 100.678 ####[facility] [address] [place], [address] Magnesiumon 06-18-2024 Magnesium [Mass/Vol] 2.0 mg/dL Normal 1.5-2.2 [facility] Comment on above: Performed By: #### L 501.5200, L501.9520 ####[facility] [address] [place], [address] Magnesium measurement (mass/ volume)Ordered By: Steve Donald on 06-18-2024 Magnesium (Unsp spec) [Mass/Vol] 2.0 mg/dL 1.5-2.[address] [facility] Measurement, pHOrdered By: Jovana Donald on 06-18-2024 pH (Unsp spec) 7.42 [pH] 7.35-7.[address] [facility] Mucus LM Ql (Urine sed)Order ed By: Steve Donald on 06-18-2024 Mucus Ql (Urine sed) 0 SEEN /hpf [facility] Nitrite Test strip Ql (U)Ord ered By: Steve Donald on 06-18-2024 Nitrite Ql (U) Negative Negative [facility] No Panel InformationOrdered By: Steve Donald on 06-18-[address] [facility] R Radial [facility] Not entered [facility] BiPAP [facility] 17/11 12 30% [facility] Protein Test strip Ql (U)Ord ered By: Steve Donald on 06-18-2024 Protein Ql (U) Negative Negative [facility] RESPIRATORY PANEL MOLECULARo n 06-18-2024 RP PANEL Normal [facility] Comment on above: Performed By: #### M 100.638 ####[facility] [address] [place], [address] Respiratory pathogens detect ion panel by molecular detection methodOrdered By: Steve Donald on 06-18-2024 Respiratory pathogens DNA and RNA panel HAYDER+probe (Resp) [facility] Squamous epithelial cells de tection in urine sediment by light microscopyOrdered By: Steve Donald on 06-18-2024 Epithelial cells.squamous LM Ql (Urine sed) 0-5 SEEN /hpf 0-[address] [facility] TSH DL <= 0.005 mIU/L QnOrde red By: Steve Donald on 06-18-2024 TSH Qn 0.897 uIU/mL 0.300-4.[address] [facility] Thyroid Stim Hormone (TSH)on 06-18-2024 TSH 0.897 uIU/mL Normal 0.300-4.[address] [facility] Comment on above: Performed By: #### L 501.5200, L501.9520 ####[facility] [address] [place], [address] Total carbon dioxide measure mentOrdered By: Steve Donald on 06-18-2024 CO2 [Moles/Vol] 28 mmol/L [facility] Troponin T.cardiac [Mass/vol ume] in Serum or Plasma by High sensitivity methodOrdered By: Jevon Osorio on 06-18-2024 Troponin T.cardiac High sensitivity method [Mass/Vol] 88 ng/L High <[address] [facility] Troponin T.cardiac High sensitivity method [Mass/Vol] 84 ng/L High <[address] [facility] Urinalysis, Completeon 06-18 BACTERIA RARE Normal None Seen [facility] Comment on above: Order Comment: CLEAN CATCH Performed By: #### L 400.0001 ####[facility] [address] [place], [address] EPI,SQUAMOUS 0-5 SEEN Normal 0-[address] [facility] Comment on above: Order Comment: CLEAN CATCH Performed By: #### L 400.0001 ####[facility] [address] [place], [address] RBC 0 SEEN Normal 0-[address] [facility] Comment on above: Order Comment: CLEAN CATCH Performed By: #### L 400.0001 ####[facility] [address] [place], [address] WBC 0-5 SEEN Normal 0-[address] [facility] Comment on above: Order Comment: CLEAN CATCH Performed By: #### L 400.0001 ####[facility] [address] [place], [address] BILIRUBIN URINE Negative Normal Negative [facility] Comment on above: Order Comment: CLEAN CATCH Performed By: #### L 400.0001 ####[facility] [address] [place], [address] Clarity (U) Clear Normal Clear [facility] Comment on above: Order Comment: CLEAN CATCH Performed By: #### L 400.0001 ####[facility] [address] [place], [address] Color (U) Yellow Normal Yellow [facility] Comment on above: Order Comment: CLEAN CATCH Performed By: #### L 400.0001 ####[facility] [address] [place], [address] GLUCOSE, UR 1000 mg/dl Abnormal Normal [facility] Comment on above: Order Comment: CLEAN CATCH Performed By: #### L 400.0001 ####[facility] [address] [place], [address] KETONE UR Negative Normal Negative [facility] Comment on above: Order Comment: CLEAN CATCH Performed By: #### L 400.0001 ####[facility] [address] [place], [address] LEUK ESTERASE Negative Normal Negative [facility] Comment on above: Order Comment: CLEAN CATCH Performed By: #### L 400.0001 ####[facility] [address] [place], [address] Nitrite Ql (U) Negative Normal Negative [facility] Comment on above: Order Comment: CLEAN CATCH Performed By: #### L 400.0001 ####[facility] [address] [place], [address] OCCULT BLOOD-UR Negative Normal Negative [facility] Comment on above: Order Comment: CLEAN CATCH Performed By: #### L 400.0001 ####[facility] [address] [place], [address] pH UR 6.0 Normal 5.0 - 8.[address] [facility] Comment on above: Order Comment: CLEAN CATCH Performed By: #### L 400.0001 ####[facility] [address] [place], [address] PROT DIPSTX Negative Normal Negative [facility] Comment on above: Order Comment: CLEAN CATCH Performed By: #### L 400.0001 ####[facility] [address] [place], [address] SP.GR. DIPSTX 1.010 Normal 1.002-1.[address] [facility] Comment on above: Order Comment: CLEAN CATCH Performed By: #### L 400.0001 ####[facility] [address] [place], [address] UROBILI Normal Normal Normal [facility] Comment on above: Order Comment: CLEAN CATCH Performed By: #### L 400.0001 ####[facility] [address] [place], [address] Mucus Ql (Urine sed) 0 SEEN Normal [facility] Comment on above: Order Comment: CLEAN CATCH Performed By: #### L 400.0001 ####[facility] [address] [place], [address] Urine clarityOrdered By: Sidney Donald on 06-18-2024 Clarity (U) Clear Clear [facility] Urine color determinationOrd ered By: Steve Donald on 06-18-2024 Color (U) Yellow Yellow [facility] Urine glucose detectionOrder ed By: Steve Donald on 06-18-2024 Glucose Ql (U) 1000 mg/dl High Normal [facility] Urine leukocyte esterase det ection by dipstickOrdered By: Steve Donald on 06-18-2024 Leukocyte esterase Test strip Ql (U) Negative Negative [facility] Urine pHOrdered By: Steve caraballo on 06-18-2024 pH (U) 6.0 [pH] 5.0 - 8.[address] [facility] Urine sediment bacteria coun t by microscopy (number/high power field)Ordered By: Steve Donald on 06-18-2024 Bacteria LM.HPF (Urine sed) [#/Area] RARE /hpf None Seen [facility] Urine specific gravity measu rementOrdered By: Steve Donald on 06-18-2024 Specific gravity (U) [Rel density] 1.010 1.002-1.[address] [facility] Urine urobilinogen measureme ntOrdered By: Steve Donald on 06-18-2024 Urobilinogen Ql (U) Normal mg/dl Normal [facility] White blood cell countOrdere d By: Steve Donald on 06-18-2024 White blood cell count 0-5 SEEN /hpf 0-[address] [facility] 12 Lead EKGon 06-17-2024 12 Lead EKG Normal [facility] Basic Metabolic Profile (BMP )on 06-17-2024 BUN/CRE 18.7 RATIO Normal 10-[address] [facility] Comment on above: Performed By: #### L 501.4021, L100.0100, L500.2500 ####[facility] [address] [place], [address] Calcium [Mass/Vol] 9.4 mg/dL Normal 7.6-11.0 [facility] Comment on above: Performed By: #### L 501.4021, L100.0100, L500.2500 ####[facility] [address] [place], [address] Chloride [Moles/Vol] 100 mmol/L Normal 98-108 [facility] Comment on above: Performed By: #### L 501.4021, L100.0100, L500.2500 ####[facility] [address] [place], [address] CO2 [Moles/Vol] 21.0 mmol/L Normal 21.0-32.[address] [facility] Comment on above: Performed By: #### L 501.4021, L100.0100, L500.2500 ####[facility] [address] [place], [address] Creatinine [Mass/Vol] 0.94 mg/dL Normal 0.70-1.20 [facility] Comment on above: Performed By: #### L 501.4021, L100.0100, L500.2500 ####[facility] [address] [place], [address] GAP 14 Normal 5-[address] [facility] Comment on above: Performed By: #### L 501.4021, L100.0100, L500.2500 ####[facility] [address] [place], [address] GFR/1.73 sq M.predicted among non-blacks MDRD (S/P/Bld) [Vol rate/Area] 91 mL/min/{1.73_m2} Normal >[address] [facility] Comment on above: Result Comment: mL/m in/1.73m2 CKD-EPI Creatinine Equation (2020) Performed By: #### L 501.4021, L100.0100, L500.2500 ####[facility] [address] [place], [address] Glucose [Mass/Vol] 438 mg/dL High 70-99 [facility] Comment on above: Performed By: #### L 501.4021, L100.0100, L500.2500 ####[facility] [address] [place], [address] Potassium [Moles/Vol] 4.5 mmol/L Normal 3.3-5.1 [facility] Comment on above: Performed By: #### L 501.4021, L100.0100, L500.2500 ####[facility] [address] [place], [address] Sodium [Moles/Vol] 134 mmol/L Normal 133-145 [facility] Comment on above: Performed By: #### L 501.4021, L100.0100, L500.2500 ####[facility] [address] [place], [address] Urea nitrogen [Mass/Vol] 18 mg/dL Normal 4-[address] [facility] Comment on above: Performed By: #### L 501.4021, L100.0100, L500.2500 ####[facility] [address] [place], [address] CBC W/Diff, Automatedon - Absolute Lymph 2.17 X10 3/uL Normal 0.83-4.[address] [facility] Comment on above: Performed By: #### L 501.4021, L100.0100, L500.2500 ####[facility] [address] [place], [address] Absolute Neut 2.9 X10 3/uL Normal 2.0-7.[address] [facility] Comment on above: Performed By: #### L 501.4021, L100.0100, L500.2500 ####[facility] [address] [place], [address] Basophils/100 WBC (Bld) 0.3 % Normal 0-1 [facility] Comment on above: Performed By: #### L 501.4021, L100.0100, L500.2500 ####[facility] [address] [place], [address] Eosinophils/100 WBC (Bld) 2.2 % Normal 0-[address] [facility] Comment on above: Performed By: #### L 501.4021, L100.0100, L500.2500 ####[facility] [address] [place], [address] Erythrocyte distribution width (RBC) [Ratio] 13.1 % Normal 11.6-14.[address] [facility] Comment on above: Performed By: #### L 501.4021, L100.0100, L500.2500 ####[facility] [address] [place], [address] Hematocrit (Bld) [Volume fraction] 46.2 % Normal 40-[address] [facility] Comment on above: Performed By: #### L 501.4021, L100.0100, L500.2500 ####[facility] [address] [place], [address] Hemoglobin (Bld) [Mass/Vol] 15.2 g/dL Normal 13.0-16.[address] [facility] Comment on above: Performed By: #### L 501.4021, L100.0100, L500.2500 ####[facility] [address] [place], [address] IG% 0.200 Normal 0.0-0.[address] [facility] Comment on above: Result Comment: IG% - Immature Granulocytes (promyelocytes, myelocytes andmetamyelocytes) > 1% indicates that a LEFT SHIFT is Present. Performed By: #### L 501.4021, L100.0100, L500.2500 ####[facility] [address] [place], [address] Lymphocytes/100 WBC (Bld) 37.2 % Normal 19-[address] [facility] Comment on above: Performed By: #### L 501.4021, L100.0100, L500.2500 ####[facility] [address] [place], [address] MCH (RBC) [Entitic mass] 31.3 pg Normal 27.0-32.[address] [facility] Comment on above: Performed By: #### L 501.4021, L100.0100, L500.2500 ####[facility] [address] [place], [address] MCHC (RBC) [Mass/Vol] 32.9 g/dL Normal 32-36 [facility] Comment on above: Performed By: #### L 501.4021, L100.0100, L500.2500 ####[facility] [address] [place], [address] MCV (RBC) [Entitic vol] 95.1 fL High 80-94 [facility] Comment on above: Performed By: #### L 501.4021, L100.0100, L500.2500 ####[facility] [address] [place], [address] Monocytes/100 WBC (Bld) 10.3 % High 0-10 [facility] Comment on above: Performed By: #### L 501.4021, L100.0100, L500.2500 ####[facility] [address] [place], [address] Neutrophils/100 WBC (Bld) 49.8 % Normal 47-[address] [facility] Comment on above: Performed By: #### L 501.4021, L100.0100, L500.2500 ####[facility] [address] [place], [address] Nucleated RBC (Bld) [#/Vol] 0 10*3/uL Normal 0-[address] [facility] Comment on above: Performed By: #### L 501.4021, L100.0100, L500.2500 ####[facility] [address] [place], [address] Platelet mean volume (Bld) [Entitic vol] 10.3 fL Normal 6.2-12.[address] [facility] Comment on above: Performed By: #### L 501.4021, L100.0100, L500.2500 ####[facility] [address] [place], [address] Platelets (Bld) [#/Vol] 244 10*3/uL Normal 150-[address] [facility] Comment on above: Performed By: #### L 501.4021, L100.0100, L500.2500 ####[facility] [address] [place], [address] RBC (Bld) [#/Vol] 4.86 10*6/uL Normal 4.6-6.2 [facility] Comment on above: Performed By: #### L 501.4021, L100.0100, L500.2500 ####[facility] [address] [place], [address] RDW SD 45.7 fl High 35.1-43.[address] [facility] Comment on above: Performed By: #### L 501.4021, L100.0100, L500.2500 ####[facility] [address] [place], [address] WBC (Bld) [#/Vol] 5.8 10*3/uL Normal 4.4-11.0 [facility] Comment on above: Performed By: #### L 501.4021, L100.0100, L500.2500 ####[facility] [address] [place], [address] Chest 1 View (Portable)on Chest 1 View (Portable) Normal [facility] L501.4021on 06-17-2024 Trop T High Sen 76 ng/L Invalid Interpretation Code <=[address] [facility] Comment on above: Result Comment: Crit ical Result(s) Called at: 2342 by: NARAYAN LAMBERT??Results read back by same. Performed By: #### L 501.4021, L100.0100, L500.2500 ####[facility] [address] [place], [address] No Panel InformationOrdered By: ED PROVIDER on 06-17-2024 76 ng/L High <[address] [facility] No Panel InformationOrdered By: Jevon Osorio on 06-17-2024 2490 pg/mL High <[address] [facility] Ankle Brachial Indexon 06-13 Ankle Brachial Index Normal [facility] Arterial Doppler ultrasound reportOrdered By: Saúl Flowers on 06-13-2024 Study report [facility] [address] [place] [address] US Art Duplex Unilat Lower Ext 06/13/24 1426 MR#: [id number] Acct: [id number] Name: JAYLEN MEJIA Hannah Sr. Rep #:[id number] : 1960 64 From: Saúl Whaley Attending Dr: NILSON Heck Stat us: REG CLI Ordering Dr: Lubna Manley Date: Location: [facility] Sex: M C Admitted: Reason For Study Reason For Study: Atherectomy/Angioplas ty Rt Popliteal Artery Right Velocities Ext. Iliac Artery, dist = 148 cm./sec. Common Femoral Artery, mid = 175 cm./sec. Supf Femoral Artery, prox = 188 cm./sec. Supf Femoral Artery, mid = 84 cm./sec. Supf Femoral Artery, dist. = 56 cm./sec. Profunda Femoral Artery = 123 cm./sec. Popliteal Artery, mid = 63 cm./sec. Post. Tibial Artery, prox = 32 cm./sec. Post. Tibial Artery, mid = 44 cm./sec. Post. Tibial Artery, dist = 37 cm./sec. Peroneal Artery, prox = 35 cm./sec. Peroneal Artery, mid = 42 cm./sec. Peroneal Artery,dist = 24 cm./sec. Ant. Tibial Artery, prox = 25 cm./sec. Ant. Tibial Artery, mid = 8 cm./sec. Ant. Tibial Artery, dist = 10 cm./sec. Procedure Exam performed in department. VL/US Art Duplex Unilat Lower Ext Interpretation Summary Right lower extremity arteries patent with normal velocities and no focal stenosis identified. Ordering Physician: Lubna Manley Referring Physician: Xiang Rogers Performed By: Solange Pena, PENNY, RVT 06/13/24 1633 Date _ Saúl Flowers MD CC: NILSON Heck; Dr. Xiang Rogers, DO ~ Date Dictated: 06/13/24 1426 Date Transcribed: 06/13/241632 Party Demonstrator: Signed [facility] Work Phone: Arterial study reportOrdered By: Saúl Flowers on 06-13-2024 Noninvasive arteriosclerosis study report [facility] [address] [facility] [place] [address] Ankle Brachial Index 06/13/24 1351 MR#: [id number] Acct: [id number] Name: JAYLEN MEJIA Sr. Rep #:[id number] : 1960 64 From: Saúl Whaley Attending Dr: NILSON Heck Stat us: REG CLI Ordering Dr: Lubna Manley Date: Location: [facility] Sex: M C Admitted: Reason For Study Reason For Study: s/p Rt Popliteal atherectomy/angioplas ty Procedure A bilateral lower extremity continuous wave Doppler with analog waveform analysis and ankle brachial indexes. Left Segmental Pressures Left brachial= 106mmHg. Left posterior tibial artery = 93mmHg. Left dorsalis pedis artery = 86mmHg. Left digit = 55 mmHg. Right Segmental Pressures Right brachial= 115mmHg. Right posterior tibial artery = 99mmHg. Right dorsalis pedis artery = 81mmHg. Right digit = 66 mmHg. Indices The right ankle brachial index by the posterior tibial artery is 0.86. The rightankle brachial index by the dorsalis pedis is 0.70. The right digital-brachial index is 0.57. The left ankle brachialindex by the posterior tibial artery is 0.81. The left ankle brachial index by the dorsalis pedis is 0.75. The left digital-brachial index is 0.48. VL/Ankle Brachial Index Interpretation Summary Right SUZY 0.86, moderate arterial insufficiency. Doppler/PVR waveforms of the right ankle moderately diminished at rest. Left SUZY 0.81, moderate arterial insufficiency. Doppler/PVR waveforms of the left ankle moderately diminished at rest. Ordering Physician: Lubna Manley Referring Physician: Xiang Rogers Performed By: Solange Pena RDCS/RVT 06/13/24 1630 Date _ Saúl Flowers MD CC: NILSON Heck; Dr. Xiang Rogers, ~ Date Dictated: 06/13/24 1351 Date Transcribed: 06/13/24 163 Party Demonstrator: Signed [facility] Work Phone: US Art Duplex Unilat Lower E xton 06-13-2024 US Art Duplex Unilat Lower Ext Normal [facility] Chest 1 View (Portable)on Chest 1 View (Portable) Normal [facility] Emergency Department Summary on 05-21-2024 Emergency Department Summary Normal [facility] Influenza virus A and B and SARS-CoV-2 (COVID-19) and Respiratory syncytial virus RNAOrdered By: Saúl Aguilar on 05-21-2024 SARS-CoV-2 (COVID-19) RNA HAYDER+probe Ql (Unsp spec) [facility] M100.678on 05-21-2024 M100.678 SARS-CoV-2 (COVID 19 ) Negative INFLUENZA A Negative INFLUENZA B Negative RSV PCR Negative Normal [facility] Comment on above: Performed By: #### M 100.678 ####[facility] [address] [place], [place], [id number] MR/BMS.BVSon 05-17-2024 MR/BMS.BVS Normal [facility] Echo Complete W/ Contraston 05-09-2024 Echo Complete W/ Contrast Normal [facility] Internal Medicine Office Vis iton 05-03-2024 Internal Medicine Office Visit Normal [facility] Laboratory - Hematology and Cell countson 05-03-2024 HbA1c (Bld) [Mass fraction] 11.4 % High 4.2-6.[address] [facility] ACT Activated Clotting Timeo n 04-20-2024 ACTk CLOT TIME 222 sec High 74-[address] [facility] Comment on above: Performed By: #### L 9100.0100 ####[facility] [address] [place], [place], [id number] Activated clotting timeOrder ed By: Saúl Flowers on 04-20-2024 Activated Clotting Time 222 sec High 74-137 [facility] Basic Metabolic Profile (BMP )on 04-20-2024 BUN/CRE 15.1 RATIO Normal 10-[address] [facility] Comment on above: Performed By: #### L 500.2500, L100.0500 ####[facility] [address] [place], [address] CA,Total 9.3 mg/dL Normal 8.5-10.[address] [facility] Comment on above: Performed By: #### L 500.2500, L100.0500 ####[facility] [address] [place], [address] Chloride [Moles/Vol] 103 mmol/L Normal 98-107 [facility] Comment on above: Performed By: #### L 500.2500, L100.0500 ####[facility] [address] [place], [address] CO2 [Moles/Vol] 26.0 mmol/L Normal 21.0-32.[address] [facility] Comment on above: Performed By: #### L 500.2500, L100.0500 ####[facility] [address] [place], [address] Creatinine [Mass/Vol] 1.06 mg/dL Normal 0.70-1.30 [facility] Comment on above: Result Comment: The validity of the calculated GFR GFRAA in patients over70 years has not been determined. Clinical correlation isessential. Performed By: #### L 500.2500, L100.0500 ####[facility] [address] [place], [address] ECRCL 78.67 ml/min Normal [facility] Comment on above: Performed By: #### L 500.2500, L100.0500 ####[facility] [address] [place], [address] EST GFR - AA 90 mL/min Normal >[address] [facility] Comment on above: Result Comment: Afri can Moroccan GFR Calc Performed By: #### L 500.2500, L100.0500 ####[facility] [address] [place], [address] GAP 6 Normal 5-[address] [facility] Comment on above: Performed By: #### L 500.2500, L100.0500 ####[facility] [address] [place], [address] GFR/1.73 sq M.predicted among non-blacks MDRD (S/P/Bld) [Vol rate/Area] 75 mL/min/{1.73_m2} Normal >[address] [facility] Comment on above: Result Comment: Non- GFR Calc Performed By: #### L 500.2500, L100.0500 ####[facility] [address] [place], [address] Glucose [Mass/Vol] 228 mg/dL High 74-106 [facility] Comment on above: Result Comment: Gluc ose result greater than or equal to 200 mg/dLsuggests DIABETES MELLITUS per A.D.A. criteria. Performed By: #### L 500.2500, L100.0500 ####[facility] [address] [place], [address] Potassium [Moles/Vol] 4.3 mmol/L Normal 3.5-5.1 [facility] Comment on above: Performed By: #### L 500.2500, L100.0500 ####[facility] [address] [place], [address] Sodium [Moles/Vol] 135 mmol/L Low 136-145 [facility] Comment on above: Performed By: #### L 500.2500, L100.0500 ####[facility] [address] [place], [address] Urea nitrogen [Mass/Vol] 16 mg/dL Normal 7-[address] [facility] Comment on above: Performed By: #### L 500.2500, L100.0500 ####[facility] [address] [place], [address] Blood urea nitrogen (BUN)/cr eatinine ratioOrdered By: Saúl Flowers on 04-20-2024 Urea nitrogen/Creatinine [Mass ratio] 15.1 mg/mg 10-[address] [facility] CBC-Complete Blood Cnt No Di ffon 04-20-2024 Erythrocyte distribution width (RBC) [Ratio] 12.9 % Normal 11.6-14.[address] [facility] Comment on above: Performed By: #### L 500.2500, L100.0500 ####[facility] [address] [place], [address] Hematocrit (Bld) [Volume fraction] 52.2 % Normal 40-[address] [facility] Comment on above: Performed By: #### L 500.2500, L100.0500 ####[facility] [address] [place], [address] Hemoglobin (Bld) [Mass/Vol] 17.8 g/dL High 13.0-16.[address] [facility] Comment on above: Performed By: #### L 500.2500, L100.0500 ####[facility] [address] [place], [address] MCH (RBC) [Entitic mass] 31.7 pg Normal 27.0-32.[address] [facility] Comment on above: Performed By: #### L 500.2500, L100.0500 ####[facility] [address] [place], [address] MCHC (RBC) [Mass/Vol] 34.1 g/dL Normal 32-36 [facility] Comment on above: Performed By: #### L 500.2500, L100.0500 ####[facility] [address] [place], [address] MCV (RBC) [Entitic vol] 92.9 fL Normal 80-94 [facility] Comment on above: Performed By: #### L 500.2500, L100.0500 ####[facility] [address] [place], [address] Platelet mean volume (Bld) [Entitic vol] 9.5 fL Normal 6.2-12.[address] [facility] Comment on above: Performed By: #### L 500.2500, L100.0500 ####[facility] [address] [place], [address] Platelets (Bld) [#/Vol] 271 10*3/uL Normal 150-[address] [facility] Comment on above: Performed By: #### L 500.2500, L100.0500 ####[facility] [address] [place], [address] RBC (Bld) [#/Vol] 5.62 10*6/uL Normal 4.6-6.2 [facility] Comment on above: Performed By: #### L 500.2500, L100.0500 ####[facility] [address] [place], [address] RDW SD 43.8 fl Normal 35.1-43.[address] [facility] Comment on above: Performed By: #### L 500.2500, L100.0500 ####[facility] [address] [place], [address] WBC (Bld) [#/Vol] 8.5 10*3/uL Normal 4.4-11.0 [facility] Comment on above: Performed By: #### L 500.2500, L100.0500 ####[facility] [address] [place], [address] Carbon dioxide measurementOr dered By: Saúl Flowers on 04-20-2024 CO2 [Moles/Vol] 26.0 mmol/L 21.0-32.[address] [facility] Chloride measurementOrdered By: Saúl Flowers on 04-20-2024 Chloride [Moles/Vol] 103 mmol/L 98-107 [facility] Erythrocyte distribution wid th ratioOrdered By: Saúl Flowers on 04-20-2024 Erythrocyte distribution width (RBC) [Ratio] 12.9 % 11.6-14.[address] [facility] Erythrocyte distribution wid th standard deviationOrdered By: Saúl Flowers on 04-20-2024 Erythrocyte distribution width (RBC) [Entitic vol] 43.8 fL 35.1-43.[address] [facility] Estimated glomerular filtrat ion rate (GFR) AmericanOrdered By: Saúl Flowers on 04-20-2024 Estimated GFR (MDRD) Amer 90 mL/min >[address] [facility] Comment on above: GFR Calc Estimation of creatinine john aranceOrdered By: Saúl Flowers on 04-20-2024 Estimated Creatinine Clearance Calc 78.67 ml/min [facility] Glomerular filtration rate ( GFR) estimationOrdered By: Saúl Flowers on 04-20-2024 Estimated GFR (MDRD) Non-Af Amer 75 mL/min >[address] [facility] Comment on above: Non- GFR Calc Glucose measurementOrdered B y: Saúl Flowers on 04-20-2024 Glucose [Mass/Vol] 228 mg/dL High 74-106 [facility] Comment on above: Glucose result great er than or equal to 200 mg/dLsuggests DIABETES MELLITUS per A.D.A. criteria. Hematocrit Auto (Bld) [Volum e fraction]Ordered By: Saúl Flowers on 04-20-2024 Hematocrit (Bld) [Volume fraction] 52.2 % 40-[address] [facility] Hemoglobin measurementOrdere d By: Saúl Flowers on 04-20-2024 Hemoglobin (Bld) [Mass/Vol] 17.8 g/dL High 13.0-16.[address] [facility] MCV (mean corpuscular volume ) determinationOrdered By: Saúl Flowers 04-20-2024 MCV (RBC) [Entitic vol] 92.9 fL 80-94 [facility] Mean corpuscular hemoglobin (MCH) determinationOrdered By: Saúl Flowers 04-20-2024 MCH (RBC) [Entitic mass] 31.7 pg 27.0-32.[address] [facility] Mean corpuscular hemoglobin concentration (MCHC) determinationOrdered By: Saúl Flowers on 04-20-2024 MCHC (RBC) [Mass/Vol] 34.1 g/dL 32-36 [facility] Mean platelet volume determi nationOrdered By: Saúl Flowers on 04-20-2024 Platelet mean volume (Bld) [Entitic vol] 9.5 fL 6.2-12.[address] [facility] Operative Reporton Operative Report Normal [facility] Platelet countOrdered By: Chacho Flowers on 04-20-2024 Platelets (Bld) [#/Vol] 271 10*3/uL 150-[address] [facility] Potassium measurementOrdered By: Saúl Flowers on 04-20-2024 Potassium [Moles/Vol] 4.3 mmol/L 3.5-5.1 [facility] RBC Auto (Bld) [#/Vol]Ordere d By: Saúl Flowers on 04-20-2024 RBC (Bld) [#/Vol] 5.62 10*6/uL 4.6-6.2 [facility] Serum anion gap measurementO rdered By: Saúl Flowers on 04-20-2024 Anion gap [Moles/Vol] 6 mmol/L - [facility] Serum or plasma calcium brenda urement (mass/volume)Ordered By: Saúl Flowers on 04-20-2024 Calcium [Mass/Vol] 9.3 mg/dL 8.5-10.1 [facility] Serum or plasma creatinine m easurement (mass/volume)Ordered By: Saúl Flowers on 04-20-2024 Creatinine [Mass/Vol] 1.06 mg/dL 0.70-1.30 [facility] Comment on above: The validity of the calculated GFR & GFRAA in patients over 70 years has not been determined. Clinical correlation is essential. Serum or plasma urea nitroge n measurement (mass/volume)Ordered By: Saúl Flowers on 04-20-2024 Urea nitrogen [Mass/Vol] 16 mg/dL 7-[address] [facility] Sodium levelOrdered By: Saúl Flowers on 04-20-2024 Sodium [Moles/Vol] 135 mmol/L Low 136-145 [facility] White blood cell (WBC) count Ordered By: Saúl Flowers on 04-20-2024 WBC (Bld) [#/Vol] 8.5 10*3/uL 4.4-11.0 [facility] MR/BMS.BVSon 04-08-2024 MR/BMS.BVS Normal [facility] Cardiology Visit Reporton Cardiology Visit Report Normal [facility] CREATININE FINGERSTICKon CREATININE WB < 1.0 Normal 0.70-1.[address] [facility] Comment on above: Performed By: #### L 9100.0200 ####[facility] [address] [place], [address] EGFR WB > 60.0000 Normal >[address] [facility] Comment on above: Performed By: #### L 9100.0200 ####[facility] [address] [place], [address] CTA Abd w/Runoff W/WO Contra ston 03-29-2024 CTA Abd w/Runoff W/WO Contrast Normal [facility] Creatinine measurement at be dsideOrdered By: Lubna Manley on 03-29-2024 Bedside Creatinine < 1.0 mg/dL 0.70-1.30 [facility] EGFROrdered By: Lubna Manley on 03-29-2024 Bedside Estimated GFR (eGFR) > 60.0000 mL/min >[address] [facility] MR/BMS.BVSon 03-22-2024 MR/BMS.BVS Normal [facility] Lower Ext Art Exam w/o Exerc zachary 03-09-2024 Lower Ext Art Exam w/o Exercis Normal [facility] Internal Medicine Office Vis iton 02-24-2024 Internal Medicine Office Visit Normal [facility] Laboratory - Hematology and Cell countson 02-24-2024 HbA1c (Bld) [Mass fraction] 11.3 % High 4.2-6.[address] [facility] MR/BMS.BVSon 02-24-2024 MR/BMS.BVS Normal [facility] Lipid Profileon 02-23-2024 Cholesterol [Mass/Vol] 238 mg/dL High 200 [facility] Comment on above: Result Comment: <200 mg/dL Desirable 200-240 mg/dL Borderline >240 mg/dL High Risk Performed By: #### L 500.3400, L500.4100 ####[facility] [address] [place], [address] Cholesterol in HDL [Mass/Vol] 38 mg/dL Low [facility] Comment on above: Result Comment: The drugs N-Acetylcysteine and Metamizole may falselydepress this assay. Reference Range HDL <40 mg/dL Low HDL Cholesterol HDL >or= 60 mg/dL High HDL Cholesterol Performed By: #### L 500.3400, L500.4100 ####[facility] [address] [place], [address] LDL TNP Normal 0-[address] [facility] Comment on above: Performed By: #### L 500.3400, L500.4100 ####[facility] [address] [place], [address] Triglyceride [Mass/Vol] 607 mg/dL High [facility] Comment on above: Result Comment: The drugs N-Acetylcysteine and Metamizole may falselydepress this assay.TRIGLYCERIDE IS GREATER THAN 400 mg/dL.LDL RESULT IS INVALID AND WILL NOT BE REPORTED.Serum Triglycerides Reference Interval Normal <150 mg/dL Borderline high 150 - 199 mg/dL High 200 - 499 mg/dL Very High > or = 500 mg/dL Performed By: #### L 500.3400, L500.4100 ####[facility] [address] [place], [address] VLDL TNP Normal 5-[address] [facility] Comment on above: Performed By: #### L 500.3400, L500.4100 ####[facility] [address] [place], [address] Liver Profileon 02-23-2024 Albumin [Mass/Vol] 3.8 g/dL Normal 3.2-5.0 [facility] Comment on above: Performed By: #### L 500.3400, L500.4100 ####[facility] [address] [place], [address] ALK P 69 U/L Normal 45-[address] [facility] Comment on above: Performed By: #### L 500.3400, L500.4100 ####[facility] [address] [place], [address] ALT [Catalytic activity/Vol] 37 U/L Normal 16-[address] [facility] Comment on above: Performed By: #### L 500.3400, L500.4100 ####[facility] [address] [place], [address] AST [Catalytic activity/Vol] 27 U/L Normal 15-[address] [facility] Comment on above: Performed By: #### L 500.3400, L500.4100 ####[facility] [address] [place], [address] Bilirubin [Mass/Vol] 0.70 mg/dL Normal 0.20-1.00 [facility] Comment on above: Result Comment: For patients on eltrombopag therapy, use of Dimension [place] TBIL is not recommended. Performed By: #### L 500.3400, L500.4100 ####[facility] [address] [place], [address] Bilirubin.direct [Mass/Vol] 0.16 mg/dL Normal 0.00-0.[address] [facility] Comment on above: Performed By: #### L 500.3400, L500.4100 ####[facility] [address] [place], [address] Globulin (S) [Mass/Vol] 4.0 g/dL Normal 2.2-4.2 [facility] Comment on above: Performed By: #### L 500.3400, L500.4100 ####[facility] [address] [place], [address] T PROT 7.8 g/dL Normal 6.4-8.[address] [facility] Comment on above: Performed By: #### L 500.3400, L500.4100 ####[facility] [address] [place], [place], [address] MR/BMS.BVSon 01-07-2024 MR/BMS.BVS Normal [facility] Venous Duplex US, Unilateral on 11-13-2023 Venous Duplex US, Unilateral Normal [facility] Internal Medicine Office Vis iton 10-28-2023 Internal Medicine Office Visit Normal [facility] LDL, Directon 10-05-2023 LDL, DIRECT Normal [facility] Comment on above: Result Comment: TEST RESULTS LIMITSLDL Chol. (Direct) 160 High mg/dL 0-99 TESTING PERFORMED AT [facility]. ORIGINAL REPORT ON FILE IN LAB CONTAINS ADDITIONAL TEST SITE INFORMATION. Performed By: #### L 500.3400, L500.4100, L3300.4490 ####[facility] [address] [place], [place], [address] Lipid Profileon 09-21-2023 Cholesterol [Mass/Vol] 253 mg/dL High 200 [facility] Comment on above: Result Comment: <200 mg/dL Desirable 200-240 mg/dL Borderline >240 mg/dL High Risk Performed By: #### L 500.3400, L500.4100, L3300.4490 ####[facility] [address] [place], [place], [address] Cholesterol in HDL [Mass/Vol] 36 mg/dL Low [facility] Comment on above: Result Comment: The drugs N-Acetylcysteine and Metamizole may falselydepress this assay. Reference Range HDL <40 mg/dL Low HDL Cholesterol HDL >or= 60 mg/dL High HDL Cholesterol Performed By: #### L 500.3400, L500.4100, L3300.4490 ####[facility] [address] [place], [address] LDL TNP Normal 0-[address] [facility] Comment on above: Performed By: #### L 500.3400, L500.4100, [id number] ####[facility] [address] [place], [address] Triglyceride [Mass/Vol] 470 mg/dL High [facility] Comment on above: Result Comment: The drugs N-Acetylcysteine and Metamizole may falselydepress this assay.TRIGLYCERIDE IS GREATER THAN 400 mg/dL.LDL RESULT IS INVALID AND WILL NOT BE REPORTED.Serum Triglycerides Reference Interval Normal <150 mg/dL Borderline high 150 - 199 mg/dL High 200 - 499 mg/dL Very High > or = 500 mg/dL Performed By: #### L 500.3400, L500.4100, [id number] ####[facility] [address] [place], [address] VLDL TNP Normal 5-[address] [facility] Comment on above: Performed By: #### L 500.3400, L500.4100, [id number] ####[facility] [address] [place], [address] Liver Profileon 09-21-2023 Albumin [Mass/Vol] 3.8 g/dL Normal 3.2-5.0 [facility] Comment on above: Performed By: #### L 500.3400, L500.4100, [id number] ####[facility] [address] [place], [address] ALK P 65 U/L Normal 45-[address] [facility] Comment on above: Performed By: #### L 500.3400, L500.4100, [id number] ####[facility] [address] [place], [address] ALT [Catalytic activity/Vol] 37 U/L Normal 16-[address] [facility] Comment on above: Performed By: #### L 500.3400, L500.4100, [id number] ####[facility] [address] [place], [address] AST [Catalytic activity/Vol] 28 U/L Normal 15-[address] [facility] Comment on above: Performed By: #### L 500.3400, L500.4100, [id number] ####[facility] [address] [place], [address] Bilirubin [Mass/Vol] 0.70 mg/dL Normal 0.20-1.00 [facility] Comment on above: Result Comment: For patients on eltrombopag therapy, use of Dimension [place] TBIL is not recommended. Performed By: #### L 500.3400, L500.4100, [id number] ####[facility] [address] [place], [address] Bilirubin.direct [Mass/Vol] 0.15 mg/dL Normal 0.00-0.[address] [facility] Comment on above: Performed By: #### L 500.3400, L500.4100, [id number] ####[facility] [address] [place], [address] Globulin (S) [Mass/Vol] 4.1 g/dL Normal 2.2-4.2 [facility] Comment on above: Performed By: #### L 500.3400, L500.4100, [id number] ####[facility] [address] [place], [address] T PROT 7.9 g/dL Normal 6.4-8.[address] [facility] Comment on above: Performed By: #### L 500.3400, L500.4100, [id number] ####[facility] [address] [place], [address] Basophil percentageOrdered B y: Xiang Rogers on 04-15-2023 Bilirubin [Mass/Vol] 0.60 mg/dL 0.20-1.00 [facility] Comment on above: For patients on eltr ombopag therapy, use of Dimension [place] TBIL is not recommended. Chloride [Moles/Vol] 100 mmol/L 98-107 [facility] Cholesterol [Mass/Vol] 255 mg/dL <200 [facility] Comment on above: <200 mg/dL Desirable 200-240 mg/dL Borderline >240 mg/dL High Risk Glucose [Mass/Vol] 255 mg/dL 74-106 [facility] Comment on above: Glucose result great er than or equal to 200 mg/dLsuggests DIABETES MELLITUS per A.D.A. criteria. Potassium [Moles/Vol] 4.7 mmol/L 3.5-5.1 [facility] Comment on above: Slight Hemolysis, Re sult may be falsely increased. Protein [Mass/Vol] 7.7 g/dL 6.4-8.2 [facility] Sodium [Moles/Vol] 133 mmol/L 136-145 [facility] Triglyceride [Mass/Vol] 411 mg/dL <199 [facility] Comment on above: The drugs N-Acetylcy steine and Metamizole may falsely depress this assay. TRIGLYCERIDE IS GREATER THAN 400 mg/dL. LDL RESULT IS INVALID AND WILL NOT BE REPORTED.Serum Triglycerides Reference Interval Normal <150 mg/dL Borderline high 150 - 199 mg/dL High 200 - 499 mg/dL Very High > or = 500 mg/dL Laboratory - Chemistry and C hemistry - challengeOrdered By: Xiang Rogers on 04-15-2023 ALP [Catalytic activity/Vol] 81 U/L 45-[address] [facility] ALT [Catalytic activity/Vol] 40 U/L 16-[address] [facility] CO2 [Moles/Vol] 28.0 mmol/L 21.0-32.[address] [facility] Globulin (S) [Mass/Vol] 4.1 g/dL 2.2-4.2 [facility] Urea nitrogen/Creatinine [Mass ratio] 11.9 mg/mg 10-[address] [facility] Laboratory - Hematology and Cell countson 04-15-2023 HbA1c (Bld) [Mass fraction] 10.6 % 4.2-6.[address] [facility] No Panel InformationOrdered By: Xiang Rogers on 04-15-2023 Estimated GFR (MDRD) Amer 96 mL/min >[address] [facility] Comment on above: GFR Calc Estimated GFR (MDRD) Non-Af Amer 79 mL/min >[address] [facility] Comment on above: Non- GFR Calc Serum or plasma albumin brenda urement (mass/volume)Ordered By: Xiang Rogers on 04-15-2023 Albumin [Mass/Vol] 3.6 g/dL 3.2-5.0 [facility] Serum or plasma albumin/glob ulin mass ratioOrdered By: Xiang Rogers on 04-15-2023 Albumin/Globulin [Mass ratio] 0.9 {ratio} 0.9-2.[address] [facility] Serum or plasma calcium brenda urement (mass/volume)Ordered By: Xiang Rogers on 04-15-2023 Calcium [Mass/Vol] 8.9 mg/dL 8.5-10.1 [facility] Serum or plasma cholesterol in HDL measurement (mass/volume)Ordered By: Xiang Rogers on 04-15-2023 Cholesterol in HDL [Mass/Vol] 37 mg/dL >[address] [facility] Comment on above: The drugs N-Acetylcy steine and Metamizole may falsely depress this assay. Reference Range HDL <40 mg/dL Low HDL Cholesterol HDL >or= 60 mg/dL High HDL Cholesterol Serum or plasma cholesterol in VLDL measurement (mass/volume)Ordered By: Xiang Rogers on 04-15-2023 Cholesterol in VLDL [Mass/Vol] TNP [facility] Comment on above: Test not performed Serum or plasma creatinine m easurement (mass/volume)Ordered By: Xiang Rogers on 04-15-2023 Creatinine [Mass/Vol] 1.01 mg/dL 0.70-1.30 [facility] Comment on above: The validity of the calculated GFR & GFRAA in patients over 70 years has not been determined. Clinical correlation is essential. Serum or plasma low density lipoprotein (LDL) cholesterol measurement (mass/volume)Ordered By: Xiang Rogers on 01-10-2024 Cholesterol in LDL [Mass/Vol] TNP [facility] Comment on above: Test not performed Serum or plasma urea nitroge n measurement (mass/volume)Ordered By: Xiang Rogers on 04-15-2023 Urea nitrogen [Mass/Vol] 12 mg/dL 7-[address] [facility] Thin prep Papanicolaou smear with manual screeningOrdered By: Xiang Rogers on 04-15-2023 Thin prep Papanicolaou smear with manual screening 29 U/L 15-[address] [facility] Comment on above: Slight Hemolysis, Re sult may be falsely increased. Thin prep Papanicolaou smear with manual screening 5 5-[address] [facility] Laboratory - Hematology and Cell countson 01-13-2023 HbA1c (Bld) [Mass fraction] 9.0 % 4.2-6.[address] [facility] Basophil percentageOrdered B y: Dean Pena on 06-02-2022 Bilirubin [Mass/Vol] 0.50 mg/dL 0.20-1.00 [facility] Comment on above: For patients on eltr ombopag therapy, use of Dimension [place] TBIL is not recommended. Cholesterol [Mass/Vol] 326 mg/dL <200 [facility] Comment on above: <200 mg/dL Desirable 200-240 mg/dL Borderline >240 mg/dL High Risk Protein [Mass/Vol] 7.5 g/dL 6.4-8.2 [facility] Triglyceride [Mass/Vol] 883 mg/dL <199 [facility] Comment on above: The drugs N-Acetylcy steine and Metamizole may falsely depress this assay. TRIGLYCERIDE IS GREATER THAN 400 mg/dL. LDL RESULT IS INVALID AND WILL NOT BE REPORTED.Serum Triglycerides Reference Interval Normal <150 mg/dL Borderline high 150 - 199 mg/dL High 200 - 499 mg/dL Very High > or = 500 mg/dL Direct bilirubinOrdered By: Dean Pena on 06-02-2022 Bilirubin.direct [Mass/Vol] 0.07 mg/dL 0.00-0.[address] [facility] Laboratory - Chemistry and C hemistry - challengeOrdered By: Dean Pena on 06-02-2022 ALP [Catalytic activity/Vol] 68 U/L 45-[address] [facility] ALT [Catalytic activity/Vol] 35 U/L 16-[address] [facility] Globulin (S) [Mass/Vol] 3.9 g/dL 2.2-4.2 [facility] Serum or plasma albumin brenda urement (mass/volume)Ordered By: Dean Pena on 06-02-2022 Albumin [Mass/Vol] 3.6 g/dL 3.2-5.0 [facility] Serum or plasma cholesterol in HDL measurement (mass/volume)Ordered By: Dean Pena on 06-02-2022 Cholesterol in HDL [Mass/Vol] 36 mg/dL >[address] [facility] Comment on above: The drugs N-Acetylcy steine and Metamizole may falsely depress this assay. Reference Range HDL <40 mg/dL Low HDL Cholesterol HDL >or= 60 mg/dL High HDL Cholesterol Serum or plasma cholesterol in VLDL measurement (mass/volume)Ordered By: Dean Pena on 06-02-2022 Cholesterol in VLDL [Mass/Vol] [facility] Comment on above: Test not performed Serum or plasma low density lipoprotein (LDL) cholesterol measurement (mass/volume)Ordered By: Dean Pena on 06-02-2022 Cholesterol in LDL [Mass/Vol] [facility] Comment on above: Test not performed Thin prep Papanicolaou smear with manual screeningOrdered By: Dean Pena on 06-02-2022 Thin prep Papanicolaou smear with manual screening 26 U/L 15-[address] [facility] Comment on above: Moderate Hemolysis, Result may be falsely increased. Absolute lymphocyte countOrd ered By: Dr. Johnson on 04-19-2022 Lymphocytes Auto (Unsp spec) [#/Vol] 1.77 10*3/uL 0.83-4.[address] [facility] Basophil percentageOrdered B y: Dr. Fields on 04-19-2022 Chloride [Moles/Vol] 104 mmol/L 98-107 [facility] Glucose [Mass/Vol] 235 mg/dL 74-106 [facility] Comment on above: Glucose result great er than or equal to 200 mg/dLsuggests DIABETES MELLITUS per A.D.A. criteria. Potassium [Moles/Vol] 4.1 mmol/L 3.5-5.1 [facility] Sodium [Moles/Vol] 137 mmol/L 136-145 [facility] Basophil percentageOrdered B y: Dr. Johnson on 04-19-2022 Basophils/100 WBC (Bld) 0.5 % 0-1 [facility] Eosinophils/100 WBC (Bld) 4.3 % 0-[address] [facility] Neutrophils (Bld) [#/Vol] 3.9 10*3/uL 2.0-7.[address] [facility] Neutrophils/100 WBC (Bld) 59.9 % 47-[address] [facility] WBC (Bld) [#/Vol] 6.6 10*3/uL 4.4-11.0 [facility] Blood erythrocytes count (nu mber/volume)Ordered By: Dr. Johnson on 04-19-2022 RBC (Bld) [#/Vol] 4.82 10*6/uL 4.6-6.2 [facility] Blood hemoglobin measurement (mass/volume)Ordered By: Dr. Johnson on 04-19-2022 Hemoglobin (Bld) [Mass/Vol] 15.4 g/dL 13.0-16.[address] [facility] Blood lymphocytes/100 leukoc ytesOrdered By: Dr. Johnson on 04-19-2022 Lymphocytes/100 WBC (Bld) 27.0 % 19-[address] [facility] Blood monocytes/100 leukocyt esOrdered By: Dr. Johnson on 04-19-2022 Monocytes/100 WBC (Bld) 7.8 % 0-10 [facility] Blood platelet mean volumeOr dered By: Dr. Johnson on 04-19-2022 Platelet mean volume (Bld) [Entitic vol] 10.2 fL 6.2-12.[address] [facility] Determination of erythrocyte mean corpuscular volume (MCV)Ordered By: Dr. Johnson on 04-19-2022 MCV (RBC) [Entitic vol] 95.4 fL 80-94 [facility] Glucose Glucometer (dC) [M ass/Vol]Ordered By: Dr. Fields on 04-19-2022 Glucose [Mass/Vol] 290 mg/dL 74-106 [facility] Comment on above: MANAGEMENT OF PATIEN T CARE PER NURSING PROTOCOL Hematocrit Auto (Bld) [Volum e fraction]Ordered By: Dr. Johnson on 04-19-2022 Hematocrit (Bld) [Volume fraction] 46.0 % 40-[address] [facility] INR in Blood by Coagulation assayOrdered By: Dr. Fields on 04-19-2022 INR Coag (Bld) [Relative time] 1.0 {INR} [facility] Laboratory - Chemistry and C hemistry - challengeOrdered By: Dr. Fields on 04-19-2022 CO2 [Moles/Vol] 26.0 mmol/L 21.0-32.[address] [facility] Urea nitrogen/Creatinine [Mass ratio] 15.7 mg/mg 10-[address] [facility] Laboratory - CoagulationOrde red By: Dr. Fields on 04-19-2022 aPTT Coag (Bld) [Time] 25.0 s 24.1-36.2 [facility] PT Coag (PPP) [Time] 13.0 s 11.7-14.9 [facility] Laboratory - Hematology and Cell countsOrdered By: Dr. Johnson on 04-19-2022 Erythrocyte distribution width (RBC) [Entitic vol] 43.7 fL 35.1-43.[address] [facility] Erythrocyte distribution width (RBC) [Ratio] 12.4 % 11.6-14.[address] [facility] Immature granulocytes/100 WBC (Bld) 0.500 % 0.0-0.[address] [facility] Comment on above: IG% - Immature Granu locytes (promyelocytes, myelocytes and metamyelocytes) > 1% indicates that a LEFT SHIFT is Present. MCH (RBC) [Entitic mass] 32.0 pg 27.0-32.[address] [facility] Nucleated RBC/100 WBC (Bld) [Ratio] 0 % 0-[address] [facility] MCHC Auto (RBC) [Mass/Vol]Or dered By: Dr. Johnson on 04-19-2022 MCHC (RBC) [Mass/Vol] 33.5 g/dL 32-36 [facility] No Panel InformationOrdered By: Dr. Fields on 04-19-2022 Estimated Creatinine Clearance Calc 79.98 ml/min [facility] Estimated GFR (MDRD) Amer 95 mL/min >[address] [facility] Comment on above: GFR Calc Estimated GFR (MDRD) Non-Af Amer 79 mL/min >[address] [facility] Comment on above: Non- GFR Calc Platelets bldOrdered By: Dr. Johnson on 04-19-2022 Platelets (Bld) [#/Vol] 254 10*3/uL 150-[address] [facility] Serum or plasma calcium brenda urement (mass/volume)Ordered By: Dr. Fields on 04-19-2022 Calcium [Mass/Vol] 8.9 mg/dL 8.5-10.1 [facility] Serum or plasma creatinine m easurement (mass/volume)Ordered By: Dr. Fields on 04-19-2022 Creatinine [Mass/Vol] 1.02 mg/dL 0.70-1.30 [facility] Comment on above: The validity of the calculated GFR & GFRAA in patients over 70 years has not been determined. Clinical correlation is essential. Serum or plasma urea nitroge n measurement (mass/volume)Ordered By: Dr. Fields on 04-19-2022 Urea nitrogen [Mass/Vol] 16 mg/dL 7-[address] [facility] Thin prep Papanicolaou smear with manual screeningOrdered By: Dr. Fields on 04-19-2022 Thin prep Papanicolaou smear with manual screening 7 5-[address] [facility] Absolute lymphocyte counton 04-18-2022 Lymphocytes Auto (Unsp spec) [#/Vol] 2.31 10*3/uL 0.83-4.[address] [facility] Work Phone: Basophil percentageon 2022 Basophils/100 WBC (Bld) 0.5 % 0-1 [facility] Work Phone: Chloride [Moles/Vol] 103 mmol/L 98-107 [facility] Work Phone: Eosinophils/100 WBC (Bld) 4.3 % 0-[address] [facility] Work Phone: Glucose [Mass/Vol] 252 mg/dL 74-106 [facility] Work Phone: Comment on above: Moderate Lipemia, Re sult may be falsely increased.Glucose result greater than or equal to 200 mg/dLsuggests DIABETES MELLITUS per A.D.A. criteria. Neutrophils (Bld) [#/Vol] 4.7 10*3/uL 2.0-7.[address] [facility] Work Phone: [phone] Neutrophils/100 WBC (Bld) 57.7 % 47-[address] [facility] Work Phone: [phone] Potassium [Moles/Vol] 3.9 mmol/L 3.5-5.1 [facility] Work Phone: [phone] Comment on above: Moderate Hemolysis, Result may be falsely increased. Sodium [Moles/Vol] 136 mmol/L 136-145 [facility] Work Phone: [phone] WBC (Bld) [#/Vol] 8.1 10*3/uL 4.4-11.0 [facility] Work Phone: [phone] Blood erythrocytes count (nu mber/volume)on 04-18-2022 RBC (Bld) [#/Vol] 4.98 10*6/uL 4.6-6.2 [facility] Work Phone: [phone] Blood hemoglobin measurement (mass/volume)on 04-18-2022 Hemoglobin (Bld) [Mass/Vol] 16.4 g/dL 13.0-16.[address] [facility] Work Phone: [phone] Blood lymphocytes/100 leukoc yteson 04-18-2022 Lymphocytes/100 WBC (Bld) 28.6 % 19-[address] [facility] Work Phone: [phone] Blood monocytes/100 leukocyt eson 04-18-2022 Monocytes/100 WBC (Bld) 8.5 % 0-10 [facility] Work Phone: [phone] Blood platelet mean volumeon 04-18-2022 Platelet mean volume (Bld) [Entitic vol] 10.2 fL 6.2-12.[address] [facility] Work Phone: [phone] Determination of erythrocyte mean corpuscular volume (MCV)on 04-18-2022 MCV (RBC) [Entitic vol] 97.4 fL 80-94 [facility] Work Phone: [phone] Hematocrit Auto (Bld) [Volum e fraction]on 04-18-2022 Hematocrit (Bld) [Volume fraction] 48.5 % 40-[address] [facility] Work Phone: [phone] INR in Blood by Coagulation assayon 04-18-2022 INR Coag (Bld) [Relative time] 1.0 {INR} [facility] Work Phone: [phone] Laboratory - Chemistry and C hemistry - challengeon 04-18-2022 CO2 [Moles/Vol] 28.0 mmol/L 21.0-32.[address] [facility] Work Phone: [phone] Urea nitrogen/Creatinine [Mass ratio] 17.1 mg/mg 10-[address] [facility] Work Phone: [phone] Laboratory - Chemistry and C hemistry - challengeOrdered By: Dr. Moura on 04-18-2022 Magnesium [Mass/Vol] 1.8 mg/dL 1.6-2.6 [facility] Comment on above: Moderate Hemolysis, Result may be falsely increased. Laboratory - Coagulationon 0 04-18-2022 aPTT Coag (Bld) [Time] 25.6 s 24.1-36.2 [facility] Work Phone: [phone] PT Coag (PPP) [Time] 12.3 s 11.7-14.9 [facility] Work Phone: [phone] Laboratory - Hematology and Cell countson 04-18-2022 Erythrocyte distribution width (RBC) [Entitic vol] 44.8 fL 35.1-43.[address] [facility] Work Phone: [phone] Erythrocyte distribution width (RBC) [Ratio] 12.4 % 11.6-14.[address] [facility] Work Phone: [phone] Immature granulocytes/100 WBC (Bld) 0.400 % 0.0-0.[address] [facility] Work Phone: [phone] Comment on above: IG% - Immature Granu locytes (promyelocytes, myelocytes and metamyelocytes) > 1% indicates that a LEFT SHIFT is Present. MCH (RBC) [Entitic mass] 32.9 pg 27.0-32.[address] [facility] Work Phone: Nucleated RBC/100 WBC (Bld) [Ratio] 0 % 0-[address] [facility] Work Phone: [phone] MCHC Auto (RBC) [Mass/Vol]on 04-18-2022 MCHC (RBC) [Mass/Vol] 33.8 g/dL 32-36 [facility] Work Phone: No Panel InformationOrdered By: Dr. Fields on 04-18-2022 Troponin I High Sensitivity 1889 pg/mL 3.0-78.[address] [facility] Comment on above: Critical Result(s) C alled at: 09:16:37 04/18/2022 by: Rula Gutierrez. Results read back by same. Please Note: New Test Units and Gender Specific Reference Ranges. For more information see Policy Stat Procedure [place] High Sensitivity Troponin (TNIH) and attachments. No Panel Informationon 04-18 Troponin I High Sensitivity 241 pg/mL 3.0-78.[address] [facility] Work Phone: Comment on above: Critical Result(s) C alled at: 04:49:49 04/18/2022 by: NICOLE Matthews CAMP COORDINATOR. Results read back by same. Please Note: New Test Units and Gender Specific Reference Ranges. For more information see Policy Stat Procedure [place] High Sensitivity Troponin (TNIH) and attachments. Estimated Creatinine Clearance Calc 77.69 ml/min [facility] Work Phone: [phone] Estimated GFR (MDRD) Amer 92 mL/min >[address] [facility] Work Phone: [phone] Comment on above: GFR Calc Estimated GFR (MDRD) Non-Af Amer 76 mL/min >[address] [facility] Work Phone: Comment on above: Non- GFR Calc Platelets bldon 04-18-2022 Platelets (Bld) [#/Vol] 254 10*3/uL 150-[address] [facility] Work Phone: [phone] Serum or plasma calcium brenda urement (mass/volume)on 04-18-2022 Calcium [Mass/Vol] 8.5 mg/dL 8.5-10.1 [facility] Work Phone: Comment on above: Moderate Lipemia, Re sult may be falsely decreased. Serum or plasma creatinine m easurement (mass/volume)on 04-18-2022 Creatinine [Mass/Vol] 1.05 mg/dL 0.70-1.30 [facility] Work Phone: Comment on above: The validity of the calculated GFR & GFRAA in patients over 70 years has not been determined. Clinical correlation is essential. Serum or plasma urea nitroge n measurement (mass/volume)on 04-18-2022 Urea nitrogen [Mass/Vol] 18 mg/dL 7-[address] [facility] Work Phone: Thin prep Papanicolaou smear with manual screeningon 04-18-2022 Thin prep Papanicolaou smear with manual screening 5 5-[address] [facility] Work Phone: Laboratory - Hematology and Cell countson 04-09-2022 HbA1c (Bld) [Mass fraction] 12.5 % 4.2-6.[address] [facility] CNOVon 02-04-2022 CNOV Office Visit (GENSWS ) JAYLEN MEJIA ([id number]) 1960 Omar Date Time Provider Department 02/04/22 8:30 AM YAMILKA PAREKH During your visit today, we recorded the following information about you: Temperature Pulse Blood pressure Weight 98 degrees 80/minute 128/74 87.2 kg Yamilka Parekh MD 02/04/2022 7:54 PM Signed Jaylen Mejia 1960 REFERRING PHYSICIAN: Yamilka Parekh MD CHIEF COMPLAINT: Follow Up (Review CT [...] non-ST elevation myocardial infarction (NSTEMI) 06/11/2018 Hyperlipidemia Senior Safety Support Manager Dr. Herrera Espinosa Hypertension Other emphysema (HCC) [...] needles, DISPOSABLE, (PEN NEEDLE) 31 gauge x 5/16" ndle Use one needle per dose. 1 [...] the patient. I have offered repair of (more content not included)... Normal [facility] CNOVon 01-28-2022 CNOV Office Visit (JOVANNA ) JAYLEN MEJIA ([id number]) 1960 M Date Time Provider Department 01/28/22 10:30 AM YAMILKA PAREKH During your visit today, we recorded the following information about you: Temperature Pulse Blood pressure Weight 97.3 degrees 79/minute 124/70 87.4 kg Height 1.803 m Yamilka Parekh MD 01/29/2022 6:15 PM Signed Jaylen Mejia 1960 REFERRING PHYSICIAN: Self CHIEF COMPLAINT: Follow [...] non-ST elevation myocardial infarction (NSTEMI) 06/11/2018 Hyperlipidemia Senior Safety Support Manager Dr. Herrera Espinosa Hypertension Other emphysema (HCC) [...] needles, DISPOSABLE, (PEN NEEDLE) 31 gauge x 5/16" ndle Use one needle per dose. 1 [...] ?C (97.3 ?F), height 180.3 cm (5' 11"), weight 87.4 kg (192 lb 9.6 oz), [...] edited as necessary, the PFSH and ROS (more content not included)... Normal [facility] CT PELVIS WO IVCONon 022 CT PELVIS WO IVCON * * *Final Report* * * DATE OF EXAM: Jan 28 2022 10:28AM [facility] 0556 - CT PELVIS WO IVCON / PROCEDURE REASON: Left groin pain * * * * Physician Interpretation * * * * EXAMINATION: CT PELVIS WITHOUT IV CONTRAST HISTORY: Left groin pain. TECHNIQUE: Helical thin axial slices were obtained from L4 level to upper thigh without intravenous administration of contrast. Coronal reconstructed images were also obtained. Images were reviewed on bony and soft tissue window settings. Contrast: Oral: Omnipaque 240 10-[address] Radiation dose: Integrated Dose-length product (DLP) for this visit = 381 mGy*cm. CT Dose Reduction Employed: Automated exposure control(AEC) and iterative recon COMPARISON: CT abdomen pelvis on 12/31/2016 RESULT: Pelvis: No mass, ascites or fluid collection. The prostate measures 3.8 x 4.8 cm on axial image. GI tract: No significant bowel wall thickening. The appendix is identified and normal in appearance. There are scattered colonic diverticula, without visible diverticulitis. Lymph nodes: No pelvic lymphadenopathy. Vasculature: There are atherosclerotic calcifications in the abdomen aorta and its branches, with mural thrombus. Bones/Soft Tissues: There is a fat-containing left inguinal hernia measuring 3.4 x 1.9 cm on axial image. The visualized bones are intact. IMPRESSION: Fat-containing left inguinal hernia. Scattered colonic diverticula. Party Demonstrator: [facility] Transcribe Date/Time: Jan 29 2022 10:59A Dictated by : ELVA BOWDEN MD This examination was interpreted and the report reviewed and electronically signed by: ELVA BOWDEN MD on Jan 29 2022 11:22AM EST [id number] N Normal [facility] CNOVon 01-06-2022 CNOV Office Visit (GENSWS ) JAYLEN MEJIA ([id number]) 1960 M Date Time Provider Department 01/06/22 9:45 AM YAMILKA PAREKH During your visit today, we recorded the following information about you: Temperature Pulse Blood pressure Weight 97.7 degrees 84/minute 160/77 88.3 kg Height 1.803 m Allison Haines RN 01/06/2022 9:32 AM Signed [...] last Mammogram screening? N/A Last Colonoscopy: Unknown VICKI Escalera MD 01/08/2022 12:57 PM Signed Jaylen Mejia 1960 REFERRING PHYSICIAN: Self CHIEF COMPLAINT: Consult [...] non-ST elevation myocardial infarction (NSTEMI) 06/11/2018 Hyperlipidemia Senior Safety Support Manager Dr. Herrera Espinosa Hypertension Other emphysema (HCC) [...] needles, DISPOSABLE, (PEN NEEDLE) 31 gauge x (more content not included)... Normal [facility] Absolute lymphocyte counton 01-01-2022 Lymphocytes Auto (Unsp spec) [#/Vol] 2.63 10*3/uL 0.83-4.[address] [facility] Work Phone: Basophil percentageon 2021 Basophils/100 WBC (Bld) 0.3 % 0-1 [facility] Work Phone: Chloride [Moles/Vol] 98 mmol/L 98-107 [facility] Work Phone: Eosinophils/100 WBC (Bld) 3.4 % 0-[address] [facility] Work Phone: Glucose [Mass/Vol] 283 mg/dL 74-106 [facility] Work Phone: Comment on above: Moderate Lipemia, Re sult may be falsely increased.Glucose result greater than or equal to 200 mg/dLsuggests DIABETES MELLITUS per A.D.A. criteria. Neutrophils (Bld) [#/Vol] 3.5 10*3/uL 2.0-7.[address] [facility] Work Phone: Neutrophils/100 WBC (Bld) 51.0 % 47-[address] [facility] Work Phone: [phone] Potassium [Moles/Vol] 4.2 mmol/L 3.5-5.1 [facility] Work Phone: Comment on above: Moderate Hemolysis, Result may be falsely increased. Sodium [Moles/Vol] 133 mmol/L 136-145 [facility] Work Phone: WBC (Bld) [#/Vol] 6.8 10*3/uL 4.4-11.0 [facility] Work Phone: Blood erythrocytes count (nu mber/volume)on 01-01-2022 RBC (Bld) [#/Vol] 4.96 10*6/uL 4.6-6.2 [facility] Work Phone: Blood hemoglobin measurement (mass/volume)on 01-01-2022 Hemoglobin (Bld) [Mass/Vol] 16.4 g/dL 13.0-16.[address] [facility] Work Phone: Blood lymphocytes/100 leukoc yteson 01-01-2022 Lymphocytes/100 WBC (Bld) 38.7 % 19-[address] [facility] Work Phone: Blood monocytes/100 leukocyt eson 01-01-2022 Monocytes/100 WBC (Bld) 6.3 % 0-10 [facility] Work Phone: Blood platelet mean volumeon 01-01-2022 Platelet mean volume (Bld) [Entitic vol] 10.3 fL 6.2-12.[address] [facility] Work Phone: [phone] Determination of erythrocyte mean corpuscular volume (MCV)on 01-01-2022 MCV (RBC) [Entitic vol] 93.5 fL 80-94 [facility] Work Phone: [phone] Hematocrit Auto (Bld) [Volum e fraction]on 01-01-2022 Hematocrit (Bld) [Volume fraction] 46.4 % 40-[address] [facility] Work Phone: [phone] Laboratory - Chemistry and C hemistry - challengeon 01-01-2022 CO2 [Moles/Vol] 30.0 mmol/L 21.0-32.[address] [facility] Work Phone: [phone] Urea nitrogen/Creatinine [Mass ratio] 15.3 mg/mg 10-[address] [facility] Work Phone: [phone] Laboratory - Hematology and Cell countson 01-01-2022 Erythrocyte distribution width (RBC) [Entitic vol] 41.0 fL 35.1-43.[address] [facility] Work Phone: [phone] Erythrocyte distribution width (RBC) [Ratio] 11.9 % 11.6-14.[address] [facility] Work Phone: [phone] Immature granulocytes/100 WBC (Bld) 0.300 % 0.0-0.[address] [facility] Work Phone: [phone] Comment on above: IG% - Immature Granu locytes (promyelocytes, myelocytes and metamyelocytes) > 1% indicates that a LEFT SHIFT is Present. MCH (RBC) [Entitic mass] 33.1 pg 27.0-32.[address] [facility] Work Phone: [phone] Nucleated RBC/100 WBC (Bld) [Ratio] 0 % 0-[address] [facility] Work Phone: [phone] MCHC Auto (RBC) [Mass/Vol]on 01-01-2022 MCHC (RBC) [Mass/Vol] 35.3 g/dL 32-36 [facility] Work Phone: [phone] No Panel Informationon 01-01 Estimated GFR (MDRD) Amer 100 mL/min >[address] [facility] Work Phone: Comment on above: GFR Calc Estimated GFR (MDRD) Non-Af Amer 82 mL/min >[address] [facility] Work Phone: Comment on above: Non- GFR Calc Vitamin D 25-Hydroxy 13.3 ng/mL [facility] Work Phone: Comment on above: Vitamin D 25(OH) Sta tus Range Deficiency <20 ng/mL (50nmol/L) Insufficiency 20 - 30 ng/mL (50 - 75 nmol/L) Sufficiency 30 - 100 ng/mL (75 - 250 nmol/L) Toxicity >100 ng/mL (>250 nmol/L) Platelets bldon 01-01-2022 Platelets (Bld) [#/Vol] 258 10*3/uL 150-[address] [facility] Work Phone: Serum or plasma calcium brenda urement (mass/volume)on 01-01-2022 Calcium [Mass/Vol] 8.2 mg/dL 8.5-10.1 [facility] Work Phone: Comment on above: Moderate Lipemia, Re sult may be falsely decreased. Serum or plasma creatinine m easurement (mass/volume)on 01-01-2022 Creatinine [Mass/Vol] 0.98 mg/dL 0.70-1.30 [facility] Work Phone: Comment on above: The validity of the calculated GFR & GFRAA in patients over 70 years has not been determined. Clinical correlation is essential. Serum or plasma urea nitroge n measurement (mass/volume)on 01-01-2022 Urea nitrogen [Mass/Vol] 15 mg/dL 7-[address] [facility] Work Phone: Thin prep Papanicolaou smear with manual screeningon 01-01-2022 Thin prep Papanicolaou smear with manual screening 5 5-[address] [facility] Work Phone: Whole blood hemoglobin A1c/t otal hemoglobin ratio (mass fraction)on 01-01-2022 HbA1c (Bld) [Mass fraction] 11.6 % 3.8-5.[address] [facility] Work Phone: Comment on above: Normal < 5.7 % Predi abetic 5.7 - 6.4 % Diabetic >or= 6.5 % Please note range changes. CNOVon 07-18-2021 CNOV Office Visit ([facility]WSTR ) JAYLEN MEJIA ([id number]) 1960 M Date Time Provider Department 07/18/21 12:45 PM GAB CULVER [facility] During your visit today, we recorded the following information about you: Temperature Pulse Respiration Blood pressure 98 degrees 100/minute 18/minute 122/74 Weight 88 kg Gab Culver APRN.ANIMAL RIDES MANAGER 07/18/2021 1:57 PM Signed Subjective HPI Nontoxic-appearing male presents urgent care [...] type 2 in obese (HCC) - Hyperlipidemia Senior Safety Support Manager Dr. Herrera Espinosa - Hypertension - Pancreatitis [...] needles, DISPOSABLE, (PEN NEEDLE) 31 gauge x 5/16" ndle Use one needle per dose. 1 [...] chest pain. Gastrointestinal: Negative for abdominal pain, diarrhea (more content not included)... Normal [facility] No Panel Informationon 07-18 Influenza Types A,B Direct FA (PORFIRIO) [facility] Work Phone: Basophil percentageon 2021 Chloride [Moles/Vol] 92 mmol/L 98-107 [facility] Work Phone: Cholesterol [Mass/Vol] 384 mg/dL <200 [facility] Work Phone: Comment on above: Moderate Icterus, Re sult may be falsely decreased. <200 mg/dL Desirable 200-240 mg/dL Borderline >240 mg/dL High Risk Glucose [Mass/Vol] 351 mg/dL 74-106 [facility] Work Phone: Comment on above: Moderate Lipemia, Re sult may be falsely increased.Glucose result greater than or equal to 200 mg/dLsuggests DIABETES MELLITUS per A.D.A. criteria. Potassium [Moles/Vol] 4.3 mmol/L 3.5-5.1 [facility] Work Phone: Comment on above: Moderate Hemolysis, Result may be falsely increased. Sodium [Moles/Vol] 127 mmol/L 136-145 [facility] Work Phone: Triglyceride [Mass/Vol] mg/dL [facility] Work Phone: [phone] Comment on above: The drugs N-Acetylcy steine and Metamizole may falsely depress this assay. Laboratory - Chemistry and C hemistry - challengeon 06-13-2021 CO2 [Moles/Vol] 29.0 mmol/L 21.0-32.[address] [facility] Work Phone: Urea nitrogen/Creatinine [Mass ratio] 18.6 mg/mg 10-[address] [facility] Work Phone: No Panel Informationon 06-13 Estimated GFR (MDRD) Amer 101 mL/min >[address] [facility] Work Phone: Comment on above: GFR Calc Estimated GFR (MDRD) Non-Af Amer 84 mL/min >[address] [facility] Work Phone: Comment on above: Non- GFR Calc Serum or plasma calcium brenda urement (mass/volume)on 06-13-2021 Calcium [Mass/Vol] 7.1 mg/dL 8.5-10.1 [facility] Work Phone: Comment on above: Moderate Lipemia, Re sult may be falsely decreased. Serum or plasma cholesterol in HDL measurement (mass/volume)on 06-13-2021 Cholesterol in HDL [Mass/Vol] 32 mg/dL [facility] Work Phone: Comment on above: The drugs N-Acetylcy steine and Metamizole may falsely depress this assay. Reference Range HDL <40 mg/dL Low HDL Cholesterol HDL >or= 60 mg/dL High HDL Cholesterol Serum or plasma cholesterol in VLDL measurement (mass/volume)on 06-13-2021 Cholesterol in VLDL [Mass/Vol] 200 mg/dL 5-[address] [facility] Work Phone: Comment on above: Previous reported re sult: TNP mg/dLEdited by: JOHN on 06/13/21:1716 Serum or plasma creatinine m easurement (mass/volume)on 06-13-2021 Creatinine [Mass/Vol] 0.97 mg/dL 0.70-1.30 [facility] Work Phone: Comment on above: Moderate Icterus, Re sult may be falsely decreased.The validity of the calculated GFR & GFRAA in patients over 70 years has not been determined. Clinical correlation is essential. Serum or plasma low density lipoprotein (LDL) cholesterol measurement (mass/volume)on 06-13-2021 Cholesterol in LDL [Mass/Vol] TNP [facility] Work Phone: Comment on above: Test not performed Serum or plasma urea nitroge n measurement (mass/volume)on 06-13-2021 Urea nitrogen [Mass/Vol] 18 mg/dL 7-[address] [facility] Work Phone: Thin prep Papanicolaou smear with manual screeningon 06-13-2021 Thin prep Papanicolaou smear with manual screening 6 5-[address] [facility] Work Phone: Whole blood hemoglobin A1c/t otal hemoglobin ratio (mass fraction)on 06-13-2021 HbA1c (Bld) [Mass fraction] 11.7 % 3.8-5.[address] [facility] Work Phone: Comment on above: Normal < 5.7 % Predi abetic 5.7 - 6.4 % Diabetic >or= 6.5 % Please note range changes. CNOVon 04-01-2021 CNOV Office Visit (UCWSTR ) JAYLEN MEJIA ([id number]) 1960 M Date Time Provider Department 04/01/21 8:00 AM MAXX OWEN [facility] During your visit today, we recorded the following information about you: Temperature Pulse Respiration Blood pressure 96.8 degrees 64/minute 18/minute 120/84 Weight 89.6 kg Maxx Owen APRN.CNP 04/01/2021 8:24 AM Signed Patient Information What is Post-Nasal Drip Post-nasal discharge, also called post-nasal drip (PND), describes the sensation of mucous accumulation in the throat or a feeling that mucus is dripping downward from the back of the nose. PND can be caused by excessive or thick secretions or throat muscle and swallowing disorders. Normally, the glands lining the nose and sinuses produce one to two quarts of thin mucus a day. On the surface of this mucous membrane lining, the rhythmic beat of invisible cilia (which look like tiny hairs under the microscope) thrust the mucus backward. Then it is swallowed unconsciously. This mucus lubricates and cleanses the nasal membranes, humidifies air, traps and clears inhaled foreign matter, and fights infection. Mucus production and clearance is regulated by a complex interaction of nerves, blood vessels, glands, muscles, hormones, and cilia. Abnormal Secretions Increased thin clear secretions can be due to colds and flu (upper respiratory viruses), allergies, cold temperatures, bright lights, certain foods and spices, and hormonal changes, various drugs (including control pills and especially high blood pressure medications), and structural abnormalities, such as a deviated or irregular nasal septum, (the septum is the cartilage and bony partition which divides the nose into its two sides, beginning at the nostrils and extending to the back of the nasal cavity.) Vasomotor rhinitis describes a nonallergic hyperirritable nose," which may feel congested, blocked or wet. Increased thick secretions are frequently caused by wintertime low humidity in homes and buildings heated without adding moisture to the air. They can also result from sinus or nose infections and some allergies, especially to certain foods such as dairy products. If the secretions of a common cold become thick and green or yellow it is likely that a bacterial sinus infection is developing. Also, particularly in children, they can signify a foreign body in the nose (such as a jesus, wadded paper, piece of toy, etc.). Decreased secretions may be caused by any of the following: ? Long-term exposure to environmental irritants (such as cigarette smoke, industrial pollutants, and automobile fumes), which can dry and damage nasal mucous membranes. When secretions are reduced, they are usually thicker than normal and produce the false sensation of increased mucus. ? Structural abnormalities (such as nasal septal irregularities) which alter air currents may then dry surrounding membranes. (Thus, depending on their type, structural problems can increase or decrease secretions.) ? Age. Mucous membranes commonly shrink and dry with age, causing reduced mucus that is thicker than normal which the elderly perceive as PND. ? Other less common disorders of the tissues lining the nose and sinuses can alter mucous production or flow. Swallowing Problems Swallowing is a complicated process by which food and fluid go from the mouth into the esophagus (tube connecting the throat to the stomach). It requires coordinated nerve and muscle interaction in the mouth, throat, and esophagus. Swallowing problems may result in accumulation of solids or liquids in the throat, which can spill into the voice box (larynx) and breathing passages (trachea and bronchi) causing hoarseness, throat clearing, or cough. Several factors contribute to swallowing problems: ? With age, swallowing muscles often lose strength and coordination. Thus, even normal secretions may not pass smoothly into the stomach. ? During sleep, swallowing occurs much less frequently, and secretions may accumulate. Coughing and vigorous throat clearing are often needed when awakening. ? At any age, nervous tension or stress can trigger throat muscle spasms, resulting in a sensation of a lump in the throat. Frequent throat clearing, which usually produces little or no mucus, can make the problem worse by increasing irritation. ? Growths or swellings in the food passages may slow or prevent the passage of liquids and/or solids. ? Swallowing dysfunction may be caused by gastroesophageal reflux, which is a return of stomach contents and acid into the esophagus or into the throat. Heartburn, indigestion, and sore throat are common symptoms, which may be aggravated while lying down (especially following eating). Hiatal hernia, a pouch-like structure at the junction of the esophagus (more content not included)... Normal [facility] Influenza virus A and B and SARS-CoV-2 (COVID-19) Ag panel - Upper respiratory specim SARS-CoV-2 (COVID-19) RNA HAYDER+probe Ql (Resp) [facility] Work Phone: No Panel Information SARS-CoV-2 & FLU Antigen (Rapid) [facility] Work Phone: Vital Signs Date Time Vital Sign Value Performing Clinician Facility 08-02-2024 11:29-0400 Body mass index (BMI) [Ratio] 26.6 kg/m2 Dr. Xiang Rogers DO Work Phone: [facility] 08-02-2024 11:29-0400 Body temperature 96.4 [degF] Dr. Xiang Rogers DO Work Phone: [facility] 08-02-2024 11:29-0400 Body weight 84.[address] Xiang Rogers DO Work Phone: [facility] 08-02-2024 11:29-0400 Diastolic blood pressure 66 mm[Hg] Dr. Xiang Rogers DO Work Phone: [facility] 08-02-2024 11:29-0400 Heart rate 87 /min Dr. Xiang Rogers DO Work Phone: [facility] 08-02-2024 11:29-0400 Respiratory rate 16 /min Dr. Xiang Rogers DO Work Phone: [facility] 08-02-2024 11:29-0400 SaO2% (BldA) [Mass fraction] 98 % Dr. Xiang Rogers DO Work Phone: [facility] 08-02-2024 11:29-0400 Systolic blood pressure 118 mm[Hg] Dr. Xiang Rogers DO Work Phone: [facility] 07-29-2024 23:02-0400 Body temperature 97.2 [degF] Dr. Xiang Rogers DO Work Phone: [facility] 07-29-2024 23:02-0400 Diastolic blood pressure 69 mm[Hg] Dr. Xiang Rogers DO Work Phone: [facility] 07-29-2024 23:02-0400 Heart rate 82 /min Dr. Xiang Rogers DO Work Phone: [facility] 07-29-2024 23:02-0400 Respiratory rate 16 /min Dr. Xiang Rogers DO Work Phone: [facility] 07-29-2024 23:02-0400 SaO2% (BldA) [Mass fraction] 95 % Dr. Xiang Rogers DO Work Phone: [facility] 07-29-2024 23:02-0400 Systolic blood pressure 117 mm[Hg] Dr. Xiang Rogers DO Work Phone: [facility] 07-29-2024 20:00-0400 Body mass index (BMI) [Ratio] 26.8 kg/m2 Dr. Xiang Rogers DO Work Phone: [facility] 07-29-2024 20:00-0400 Body weight 87.[address] Xiang Rogers DO Work Phone: [facility] 07-14-2024 10:05-0400 Body temperature 98.2 [degF] Dr. Xiang Rogers DO Work Phone: [facility] 07-14-2024 10:05-0400 Body weight 85.[address] Xiang Rogers DO Work Phone: [facility] 07-14-2024 10:05-0400 Diastolic blood pressure 60 mm[Hg] Dr. Xiang Rogers DO Work Phone: [facility] 07-14-2024 10:05-0400 Heart rate 90 /min Dr. Xiang Rogers DO Work Phone: [facility] 07-14-2024 10:05-0400 Respiratory rate 16 /min Dr. Xiang Rogers DO Work Phone: [facility] 07-14-2024 10:05-0400 SaO2% (BldA) [Mass fraction] 96 % Dr. Xiang Rogers DO Work Phone: [facility] 07-14-2024 10:05-0400 Systolic blood pressure 113 mm[Hg] Dr. Xiang Rogers DO Work Phone: [facility] 07-12-2024 10:03-0400 Body mass index (BMI) [Ratio] 25.9 kg/m2 Dr. Xiang Rogers DO Work Phone: [facility] 07-12-2024 10:03-0400 Body weight 84.[address] Xiang Rogers DO Work Phone: [facility] 07-12-2024 10:03-0400 Diastolic blood pressure 72 mm[Hg] Dr. Xiang Rogers DO Work Phone: [facility] 07-12-2024 10:03-0400 Heart rate 84 /min Dr. Xiang Rogers DO Work Phone: [facility] 07-12-2024 10:03-0400 Respiratory rate 20 /min Dr. Xiang Rogers DO Work Phone: [facility] 07-12-2024 10:03-0400 SaO2% (BldA) [Mass fraction] 96 % Dr. Xiang Rogers DO Work Phone: [facility] 07-12-2024 10:03-0400 Systolic blood pressure 120 mm[Hg] Dr. Xiang Rogers DO Work Phone: [facility] 06-20-2024 10:00-0400 Body temperature 98.1 [degF] Dr. Xiang Rogers DO Work Phone: [facility] 06-20-2024 10:00-0400 Diastolic blood pressure 68 mm[Hg] Dr. Xiang Rogers DO Work Phone: [facility] 06-20-2024 10:00-0400 Heart rate 74 /min Dr. Xiang Rogers DO Work Phone: [facility] 06-20-2024 10:00-0400 Respiratory rate 16 /min Dr. Xiang Rogers DO Work Phone: [facility] 06-20-2024 10:00-0400 SaO2% (BldA) [Mass fraction] 99 % Dr. Xiang Rogers DO Work Phone: [facility] 06-20-2024 10:00-0400 Systolic blood pressure 112 mm[Hg] Dr. Xiang Rogers DO Work Phone: [facility] 06-20-2024 04:34-0400 Body mass index (BMI) [Ratio] 26.7 kg/m2 Dr. Xiang Rogers DO Work Phone: [facility] 06-20-2024 04:34-0400 Body weight [address] Xiang Rogers DO Work Phone: [facility] 06-19-2024 10:35-0400 Inhaled oxygen flow rate 1 L/min Dr. Xiang Rogers DO Work Phone: [facility] 06-18-2024 05:54-0400 Inhaled oxygen concentration 30 % Dr. Xiang Rogers DO Work Phone: [facility] 05-21-2024 17:26-0500 Body mass index (BMI) [Ratio] 28.1 kg/m2 Dr. Xiang Rogers DO Work Phone: [facility] 05-21-2024 17:26-0500 Body temperature 98.1 [degF] Dr. Xiang Rogers DO Work Phone: [facility] 05-21-2024 17:26-0500 Body weight 88.[address] Xiang Rogers DO Work Phone: [facility] 05-21-2024 17:26-0500 Diastolic blood pressure 83 mm[Hg] Dr. Xiang Rogers DO Work Phone: [facility] 05-21-2024 17:26-0500 Heart rate 102 /min Dr. Xiang Rogers DO Work Phone: [facility] 05-21-2024 17:26-0500 Respiratory rate 16 /min Dr. Xiang Rogers DO Work Phone: [facility] 05-21-2024 17:26-0500 SaO2% (BldA) [Mass fraction] 97 % Dr. Xiang Rogers DO Work Phone: [facility] 05-21-2024 17:26-0500 Systolic blood pressure 115 mm[Hg] Dr. Xiang Rogers DO Work Phone: [facility] 05-17-2024 12:50-0500 Body temperature 98 [degF] Dr. Xiang Rogers DO Work Phone: [facility] 05-17-2024 12:50-0500 Body weight 86.[address] Xiang Rogers DO Work Phone: [facility] 05-17-2024 12:50-0500 Diastolic blood pressure 70 mm[Hg] Dr. Xiang Rogers DO Work Phone: [facility] 05-17-2024 12:50-0500 Heart rate 90 /min Dr. Xiang Rogers DO Work Phone: [facility] 05-17-2024 12:50-0500 Respiratory rate 16 /min Dr. Xiang Rogers DO Work Phone: [facility] 05-17-2024 12:50-0500 SaO2% (BldA) [Mass fraction] 97 % Dr. Xiang Rogers DO Work Phone: [facility] 05-17-2024 12:50-0500 Systolic blood pressure 108 mm[Hg] Dr. Xiang Rogers DO Work Phone: [facility] 05-03-2024 10:53-0500 Body mass index (BMI) [Ratio] 27.6 kg/m2 Dr. Xiang Rogers DO Work Phone: [facility] 05-03-2024 10:53-0500 Body temperature 97.8 [degF] Dr. Xiang Rogers DO Work Phone: [facility] 05-03-2024 10:53-0500 Body weight 87.[address] Xiang Rogers DO Work Phone: [facility] 05-03-2024 10:53-0500 Diastolic blood pressure 62 mm[Hg] Dr. Xiang Rogers DO Work Phone: [facility] 05-03-2024 10:53-0500 Heart rate 93 /min Dr. Xiang Rogers DO Work Phone: [facility] 05-03-2024 10:53-0500 Respiratory rate 18 /min Dr. Xiang Rogers DO Work Phone: [facility] 05-03-2024 10:53-0500 SaO2% (BldA) [Mass fraction] 97 % Dr. Xiang Rogers DO Work Phone: [facility] 05-03-2024 10:53-0500 Systolic blood pressure 120 mm[Hg] Dr. Xiang Rogers DO Work Phone: [facility] 04-20-2024 07:15-0500 Body weight 87.[address] Xiang Rogers DO Work Phone: [facility] 04-19-2024 08:51-0500 Body mass index (BMI) [Ratio] 27.8 kg/m2 Dr. Xiang Rogers DO Work Phone: [facility] 04-08-2024 13:27-0500 Body temperature 98.2 [degF] Dr. Xiang Rogers DO Work Phone: [facility] 04-08-2024 13:27-0500 Body weight 87.[address] Xiang Rogers DO Work Phone: [facility] 04-08-2024 13:27-0500 Diastolic blood pressure 74 mm[Hg] Dr. Xiang Rogers DO Work Phone: [facility] 04-08-2024 13:27-0500 Heart rate 78 /min Dr. Xiang Rogers DO Work Phone: [facility] 04-08-2024 13:27-0500 Respiratory rate 16 /min Dr. Xiang Rogers DO Work Phone: [facility] 04-08-2024 13:27-0500 SaO2% (BldA) [Mass fraction] 97 % Dr. Xiang Rogers DO Work Phone: [facility] 04-08-2024 13:27-0500 Systolic blood pressure 127 mm[Hg] Dr. Xiang Rogers DO Work Phone: [facility] 04-01-2024 09:51-0500 Body mass index (BMI) [Ratio] 27.8 kg/m2 Dr. Xiang Rogers DO Work Phone: [facility] 04-01-2024 09:51-0500 Body weight 87.[address] Xiang Rogers DO Work Phone: [facility] 04-01-2024 09:51-0500 Diastolic blood pressure 80 mm[Hg] Dr. Xiang Rogers DO Work Phone: [facility] 04-01-2024 09:51-0500 Heart rate 76 /min Dr. Xiang Rogers DO Work Phone: [facility] 04-01-2024 09:51-0500 Respiratory rate 18 /min Dr. Xiang Rogers DO Work Phone: [facility] 04-01-2024 09:51-0500 SaO2% (BldA) [Mass fraction] 99 % Dr. Xiang Rogers DO Work Phone: [facility] 04-01-2024 09:51-0500 Systolic blood pressure 136 mm[Hg] Dr. Xiang Rogers DO Work Phone: [facility] 03-22-2024 11:03-0500 Body temperature 97.8 [degF] Dr. Xiang Rogers DO Work Phone: [facility] 03-22-2024 11:03-0500 Body weight 87.[address] Xiang Rogers DO Work Phone: [facility] 03-22-2024 11:03-0500 Diastolic blood pressure 59 mm[Hg] Dr. Xiang Rogers DO Work Phone: [facility] 03-22-2024 11:03-0500 Heart rate 90 /min Dr. Xiang Rogers DO Work Phone: [facility] 03-22-2024 11:03-0500 Respiratory rate 16 /min Dr. Xiang Rogers DO Work Phone: [facility] 03-22-2024 11:03-0500 SaO2% (BldA) [Mass fraction] 97 % Dr. Xiang Rogers DO Work Phone: [facility] 03-22-2024 11:03-0500 Systolic blood pressure 112 mm[Hg] Dr. Xiang Rogers DO Work Phone: [facility] 02-24-2024 13:07-0500 Body mass index (BMI) [Ratio] 27.9 kg/m2 Dr. Xiang Rogers DO Work Phone: [facility] 02-24-2024 13:07-0500 Body temperature 97.6 [degF] Dr. Xiang Rogers DO Work Phone: [facility] 02-24-2024 13:07-0500 Body weight 88.[address] Xiang Rogers DO Work Phone: [facility] 02-24-2024 13:07-0500 Diastolic blood pressure 76 mm[Hg] Dr. Xiang Rogers DO Work Phone: [facility] 02-24-2024 13:07-0500 Heart rate 72 /min Dr. Xiang Rogers DO Work Phone: [facility] 02-24-2024 13:07-0500 Respiratory rate 16 /min Dr. Xiang Rogers DO Work Phone: [facility] 02-24-2024 13:07-0500 SaO2% (BldA) [Mass fraction] 97 % Dr. Xiang Rogers DO Work Phone: [facility] 02-24-2024 13:07-0500 Systolic blood pressure 126 mm[Hg] Dr. Xiang Rogers DO Work Phone: [facility] 02-24-2024 11:24-0500 Body temperature 98.4 [degF] Dr. Xiang Rogers DO Work Phone: [facility] 02-24-2024 11:24-0500 Body weight 88.[address] Xiang Rogers DO Work Phone: [facility] 02-24-2024 11:24-0500 Diastolic blood pressure 61 mm[Hg] Dr. Xiang Rogers DO Work Phone: [facility] 02-24-2024 11:24-0500 Heart rate 64 /min Dr. Xiang Rogers DO Work Phone: [facility] 02-24-2024 11:24-0500 Respiratory rate 16 /min Dr. Xiang Rogers DO Work Phone: [facility] 02-24-2024 11:24-0500 SaO2% (BldA) [Mass fraction] 98 % Dr. Xiang Rogers DO Work Phone: [facility] 02-24-2024 11:24-0500 Systolic blood pressure 105 mm[Hg] Dr. Xiang Rogers DO Work Phone: [facility] 12-31-2023 09:26-0400 Body mass index (BMI) [Ratio] 25.95 kg/m2 Gab Culver APRN.ANIMAL RIDES MANAGER Work Phone: [facility] 12-31-2023 09:26-0400 Body temperature 97.5 [degF] Gab Culver [employer].ANIMAL RIDES MANAGER Work Phone: [facility] 12-31-2023 09:26-0400 Body weight 84.4 kg Gab Culver [employer].ANIMAL RIDES MANAGER Work Phone: [facility] 12-31-2023 09:26-0400 Diastolic blood pressure 75 mm[Hg] Gab Culver [employer].ANIMAL RIDES MANAGER Work Phone: [facility] 12-31-2023 09:26-0400 Heart rate 78 /min Gab Culver [employer].ANIMAL RIDES MANAGER Work Phone: [facility] 12-31-2023 09:26-0400 Respiratory rate 18 /min Gab Culver [employer].ANIMAL RIDES MANAGER Work Phone: [facility] 12-31-2023 09:26-0400 SaO2% (BldA) [Mass fraction] 96 % Gab Culver [employer].ANIMAL RIDES MANAGER Work Phone: [facility] 12-31-2023 09:26-0400 Systolic blood pressure 126 mm[Hg] Gab Culver APRN.CNP Work Phone: [facility] 06-02-2023 12:53-0500 Body height 180.[address] Xiang Rogers Work Phone: [facility] 06-02-2023 12:53-0500 Body mass index (BMI) [Ratio] 26.9 kg/m2 Dr. Xiang Rogers Work Phone: [facility] 06-02-2023 12:53-0500 Body temperature 97.4 [degF] Dr. Xiang Rogers Work Phone: [facility] 06-02-2023 12:53-0500 Body weight 87.[address] Xiang Rogers Work Phone: [facility] 06-02-2023 12:53-0500 Diastolic blood pressure 66 mm[Hg] Dr. Xiang Rogers Work Phone: [facility] 06-02-2023 12:53-0500 Heart rate 60 /min Dr. Xiang Rogers Work Phone: [facility] 06-02-2023 12:53-0500 Respiratory rate 18 /min Dr. Xiang Rogers Work Phone: [facility] 06-02-2023 12:53-0500 SaO2% (BldA) [Mass fraction] 96 % Dr. Xiang Rogers Work Phone: [facility] 06-02-2023 12:53-0500 Systolic blood pressure 125 mm[Hg] Dr. Xiang Rogers Work Phone: [facility] 05-24-2023 02:38-0500 Body temperature 97.7 [degF] Dr. Xiang Rogers Work Phone: [facility] 05-24-2023 02:38-0500 Diastolic blood pressure 61 mm[Hg] Dr. Xiang Rogers Work Phone: [facility] 05-24-2023 02:38-0500 Heart rate 71 /min Dr. Xiang Rogers Work Phone: [facility] 05-24-2023 02:38-0500 Respiratory rate 18 /min Dr. Xiang Rogers Work Phone: [facility] 05-24-2023 02:38-0500 SaO2% (BldA) [Mass fraction] 96 % Dr. Xiang Rogers Work Phone: [facility] 05-24-2023 02:38-0500 Systolic blood pressure 99 mm[Hg] Dr. Xiang Rogers Work Phone: [facility] 05-24-2023 00:23-0500 Body height 180.[address] Xiang Rogers Work Phone: [facility] 05-24-2023 00:23-0500 Body mass index (BMI) [Ratio] 25.8 kg/m2 Dr. Xiang Rogers Work Phone: [facility] 05-24-2023 00:23-0500 Body weight [address] Xiang Rogers Work Phone: [facility] 04-25-2023 17:36-0500 Body temperature 95 [degF] Dr. Xiang Rogers Work Phone: [facility] 04-25-2023 17:36-0500 Diastolic blood pressure 73 mm[Hg] Dr. Xiang Rogers Work Phone: [facility] 04-25-2023 17:36-0500 Heart rate 67 /min Dr. Xiang Rogers Work Phone: [facility] 04-25-2023 17:36-0500 Respiratory rate 18 /min Dr. Xiang Rogers Work Phone: [facility] 04-25-2023 17:36-0500 Systolic blood pressure 139 mm[Hg] Dr. Xiang Rogers Work Phone: [facility] 04-25-2023 15:25-0500 Body height 180.[address] Xiang Rogers Work Phone: [facility] 04-25-2023 15:25-0500 Body mass index (BMI) [Ratio] 26.7 kg/m2 Dr. Xiang Rogers Work Phone: [facility] 04-25-2023 15:25-0500 Body weight 87.[address] Xiang Rogers Work Phone: [facility] 04-25-2023 15:25-0500 SaO2% (BldA) [Mass fraction] 96 % Dr. Xiang Rogers Work Phone: [facility] 04-15-2023 09:24-0500 Body height 180.[address] Xiang Rogers Work Phone: [facility] 04-15-2023 09:24-0500 Body mass index (BMI) [Ratio] 26.9 kg/m2 Dr. Xiang Rogers Work Phone: [facility] 04-15-2023 09:24-0500 Body temperature 97.2 [degF] Dr. Xiang Rogers Work Phone: [facility] 04-15-2023 09:24-0500 Body weight 87.[address] Xiang Rogers Work Phone: [facility] 04-15-2023 09:24-0500 Diastolic blood pressure 70 mm[Hg] Dr. Xiang Rogers Work Phone: [facility] 04-15-2023 09:24-0500 Heart rate 81 /min Dr. Xiang Rogers Work Phone: [facility] 04-15-2023 09:24-0500 Respiratory rate 16 /min Dr. Xiang Rogers Work Phone: [facility] 04-15-2023 09:24-0500 SaO2% (BldA) [Mass fraction] 98 % Dr. Xiang Rogers Work Phone: [facility] 04-15-2023 09:24-0500 Systolic blood pressure 128 mm[Hg] Dr. Xiang Rogers Work Phone: [facility] 01-26-2023 15:28-0400 Body mass index (BMI) [Ratio] 27.3 kg/m2 Dr. Xiang Rogers Work Phone: [facility] 01-26-2023 15:28-0400 Body weight 88.[address] Xiang Rogers Work Phone: [facility] 01-26-2023 15:28-0400 Diastolic blood pressure 56 mm[Hg] Dr. Xiang Rogers Work Phone: [facility] 01-26-2023 15:28-0400 Heart rate 70 /min Dr. Xiang Rogers Work Phone: [facility] 01-26-2023 15:28-0400 Respiratory rate 18 /min Dr. Xiang Rogers Work Phone: [facility] 01-26-2023 15:28-0400 Systolic blood pressure 118 mm[Hg] Dr. Xiang Rogers Work Phone: [facility] 01-13-2023 09:27-0400 Body mass index (BMI) [Ratio] 27 kg/m2 Dr. Xiang Rogers Work Phone: [facility] 01-13-2023 09:27-0400 Body temperature 98.4 [degF] Dr. Xiang Rogers Work Phone: [facility] 01-13-2023 09:27-0400 Body weight 87.[address] Xiang Rogers Work Phone: [facility] 01-13-2023 09:27-0400 Diastolic blood pressure 70 mm[Hg] Dr. Xiang Rogers Work Phone: [facility] 01-13-2023 09:27-0400 Heart rate 61 /min Dr. Xiang Rogers Work Phone: [facility] 01-13-2023 09:27-0400 Respiratory rate 16 /min Dr. Xiang Rogers Work Phone: [facility] 01-13-2023 09:27-0400 SaO2% (BldA) [Mass fraction] 97 % Dr. Xiang Rogers Work Phone: [facility] 01-13-2023 09:27-0400 Systolic blood pressure 120 mm[Hg] Dr. Xiang Rogers Work Phone: [facility] 05-21-2022 01:34-0500 Body height 180.[address] Xiang Rogers Work Phone: [facility] 05-21-2022 01:34-0500 Body mass index (BMI) [Ratio] 29.1 kg/m2 Dr. Xiang Rogers Work Phone: [facility] 05-21-2022 01:34-0500 Body temperature 98.8 [degF] Dr. Xiang Rogers Work Phone: [facility] 05-21-2022 01:34-0500 Body weight 94.[address] Xiang Rogers Work Phone: [facility] 05-21-2022 01:34-0500 Diastolic blood pressure 79 mm[Hg] Dr. Xiang Rogers Work Phone: [facility] 05-21-2022 01:34-0500 Heart rate 74 /min Dr. Xiang Rogers Work Phone: [facility] 05-21-2022 01:34-0500 Respiratory rate 17 /min Dr. Xiang Rogers Work Phone: [facility] 05-21-2022 01:34-0500 SaO2% (BldA) [Mass fraction] 98 % Dr. Xiang Rogers Work Phone: [facility] 05-21-2022 01:34-0500 Systolic blood pressure 143 mm[Hg] Dr. Xiang Rogers Work Phone: [facility] 05-19-2022 13:35-0500 Body mass index (BMI) [Ratio] 28.5 kg/m2 Dr. Xiang Rogers Work Phone: [facility] 05-19-2022 13:35-0500 Body weight 92.[address] Xiang Rogers Work Phone: [facility] 05-19-2022 13:35-0500 Diastolic blood pressure 69 mm[Hg] Dr. Xiang Rogers Work Phone: [facility] 05-19-2022 13:35-0500 Heart rate 62 /min Dr. Xiang Rogers Work Phone: [facility] 05-19-2022 13:35-0500 Respiratory rate 18 /min Dr. Xiang Rogers Work Phone: [facility] 05-19-2022 13:35-0500 SaO2% (BldA) [Mass fraction] 96 % Dr. Xiang Rogers Work Phone: [facility] 05-19-2022 13:35-0500 Systolic blood pressure 128 mm[Hg] Dr. Xiang Rogers Work Phone: [facility] 04-24-2022 13:27-0500 Body mass index (BMI) [Ratio] 28.3 kg/m2 Dr. Xiang Rogers Work Phone: [facility] 04-24-2022 13:27-0500 Body temperature 98.3 [degF] Dr. Xiang Rogers Work Phone: [facility] 04-24-2022 13:27-0500 Body weight 92.[address] Xiang Rogers Work Phone: [facility] 04-24-2022 13:27-0500 Diastolic blood pressure 62 mm[Hg] Dr. Xiang Rogers Work Phone: [facility] 04-24-2022 13:27-0500 Heart rate 61 /min Dr. Xiang Rogers Work Phone: [facility] 04-24-2022 13:27-0500 Respiratory rate 14 /min Dr. Xiang Rogers Work Phone: [facility] 04-24-2022 13:27-0500 SaO2% (BldA) [Mass fraction] 97 % Dr. Xiang Rogers Work Phone: [facility] 04-24-2022 13:27-0500 Systolic blood pressure 104 mm[Hg] Dr. Xiang Rogers Work Phone: [facility] 04-19-2022 14:53-0500 SaO2% (BldA) [Mass fraction] 95 % Dr. Xiang Rogers Work Phone: [facility] 04-19-2022 09:30-0500 Body temperature 97.9 [degF] Dr. Xiang Rogers Work Phone: [facility] 04-19-2022 09:30-0500 Diastolic blood pressure 77 mm[Hg] Dr. Xiang Rogers Work Phone: [facility] 04-19-2022 09:30-0500 Heart rate 79 /min Dr. Xiang Rogers Work Phone: [facility] 04-19-2022 09:30-0500 Respiratory rate 20 /min Dr. Xiang Rogers Work Phone: [facility] 04-19-2022 09:30-0500 Systolic blood pressure 110 mm[Hg] Dr. Xiang Rogers Work Phone: [facility] 04-18-2022 10:11-0500 Body weight 93.[address] Xiang Rogers Work Phone: [facility] 04-18-2022 05:51-0500 Body temperature 98 [degF] Dr. Xiang Rogers Work Phone: [facility] Work Phone: 04-18-2022 05:51-0500 Diastolic blood pressure 76 mm[Hg] Dr. Xiang Rogers Work Phone: [facility] Work Phone: 04-18-2022 05:51-0500 Heart rate 80 /min Dr. Xiang Rogers Work Phone: [facility] Work Phone: 04-18-2022 05:51-0500 Respiratory rate 18 /min Dr. Xiang Rogers Work Phone: [facility] Work Phone: 04-18-2022 05:51-0500 SaO2% (BldA) [Mass fraction] 92 % Dr. Xiang Rogers Work Phone: [facility] Work Phone: 04-18-2022 05:51-0500 Systolic blood pressure 123 mm[Hg] Dr. Xiang Rogers Work Phone: [facility] Work Phone: 04-18-2022 01:36-0500 Body height 180.[address] Xiang Rogers Work Phone: [facility] Work Phone: 04-18-2022 01:36-0500 Body mass index (BMI) [Ratio] 28.6 kg/m2 Dr. Xiang Rogers Work Phone: [facility] 04-18-2022 01:36-0500 Body weight 93.[address] Xiang Rogers Work Phone: [facility] Work Phone: 04-09-2022 14:00-0500 Body mass index (BMI) [Ratio] 27.4 kg/m2 Dr. Xiang Rogers Work Phone: [facility] 04-09-2022 14:00-0500 Body temperature 98.4 [degF] Dr. Xiang Rogers Work Phone: [facility] 04-09-2022 14:00-0500 Body weight 89.[address] Xiang Rogers Work Phone: [facility] 04-09-2022 14:00-0500 Diastolic blood pressure 78 mm[Hg] Dr. Xiang Rogers Work Phone: [facility] 04-09-2022 14:00-0500 Heart rate 65 /min Dr. Xiang Rogers Work Phone: [facility] 04-09-2022 14:00-0500 Respiratory rate 16 /min Dr. Xiang Rogers Work Phone: [facility] 04-09-2022 14:00-0500 SaO2% (BldA) [Mass fraction] 99 % Dr. Xiang Rogers Work Phone: [facility] 04-09-2022 14:00-0500 Systolic blood pressure 132 mm[Hg] Dr. Xiang Rogers Work Phone: [facility] 03-11-2022 12:30-0500 Body height 180.[address] Xiang Rogers Work Phone: [facility] Work Phone: 03-11-2022 12:30-0500 Body mass index (BMI) [Ratio] 26.9 kg/m2 Dr. Xiang Rogers Work Phone: [facility] 03-11-2022 12:30-0500 Body temperature 98 [degF] Dr. Xiang Rogers Work Phone: [facility] 03-11-2022 12:30-0500 Body weight 87.[address] Xiang Rogers Work Phone: [facility] 03-11-2022 12:30-0500 Diastolic blood pressure 76 mm[Hg] Dr. Xiang Rogers Work Phone: [facility] 03-11-2022 12:30-0500 Heart rate 87 /min Dr. Xiang Rogers Work Phone: [facility] 03-11-2022 12:30-0500 Respiratory rate 16 /min Dr. Xiang Rogers Work Phone: [facility] 03-11-2022 12:30-0500 SaO2% (BldA) [Mass fraction] 97 % Dr. Xiang Rogers Work Phone: [facility] 03-11-2022 12:30-0500 Systolic blood pressure 153 mm[Hg] Dr. Xiang Rogers Work Phone: [facility] 03-01-2022 19:47-0500 Body height 180.[address] Xiang Rogers Work Phone: [facility] Work Phone: 03-01-2022 19:47-0500 Body mass index (BMI) [Ratio] 27.9 kg/m2 Dr. Xiang Rogers Work Phone: [facility] 03-01-2022 19:47-0500 Body temperature 96.8 [degF] Dr. Xiang Rogers Work Phone: [facility] 03-01-2022 19:47-0500 Body weight [address] Xiang Rogers Work Phone: [facility] 03-01-2022 19:47-0500 Diastolic blood pressure 75 mm[Hg] Dr. Xiang Rogers Work Phone: [facility] 03-01-2022 19:47-0500 Heart rate 103 /min Dr. Xiang Rogers Work Phone: [facility] 03-01-2022 19:47-0500 Respiratory rate 16 /min Dr. Xiang Rogers Work Phone: [facility] 03-01-2022 19:47-0500 SaO2% (BldA) [Mass fraction] 94 % Dr. Xiang Rogers Work Phone: [facility] 03-01-2022 19:47-0500 Systolic blood pressure 141 mm[Hg] Dr. Xiang Rogers Work Phone: [facility] 02-04-2022 08:30-0400 Body temperature 98.01 [degF] Yamilka Parekh MD Work Phone: [facility] 02-04-2022 08:30-0400 Body weight 87.18 kg Yamilka Parekh MD Work Phone: [facility] 02-04-2022 08:30-0400 Diastolic blood pressure 74 mm[Hg] Yamilka Parekh MD Work Phone: [facility] 02-04-2022 08:30-0400 Heart rate 80 /min Yamilka Parekh MD Work Phone: [facility] 02-04-2022 08:30-0400 SaO2% (BldA) [Mass fraction] 98 % Yamilka Parekh MD Work Phone: [facility] 02-04-2022 08:30-0400 Systolic blood pressure 128 mm[Hg] Yamilka Parekh MD Work Phone: [facility] 01-28-2022 10:40-0400 Body height 180.3 cm Yamilka Parekh MD Work Phone: [facility] 01-28-2022 10:40-0400 Body temperature 97.3 [degF] Yamilka Parekh MD Work Phone: [facility] 01-28-2022 10:40-0400 Body weight 87.36 kg Yamilka Parekh MD Work Phone: [facility] 01-28-2022 10:40-0400 Diastolic blood pressure 70 mm[Hg] Yamilka Parekh MD Work Phone: [facility] 01-28-2022 10:40-0400 Heart rate 79 /min Yamilka Parekh MD Work Phone: [facility] 01-28-2022 10:40-0400 SaO2% (BldA) [Mass fraction] 98 % Yamilka Parekh MD Work Phone: [facility] 01-28-2022 10:40-0400 Systolic blood pressure 124 mm[Hg] Yamilka Parekh MD Work Phone: [facility] 01-06-2022 09:25-0400 Body height 180.3 cm Yamilka Parekh MD Work Phone: [facility] 01-06-2022 09:25-0400 Body temperature 97.7 [degF] Yamilka Parekh MD Work Phone: [facility] 01-06-2022 09:25-0400 Body weight 88.27 kg Yamilka Parekh MD Work Phone: [facility] 01-06-2022 09:25-0400 Diastolic blood pressure 77 mm[Hg] Yamilka Parekh MD Work Phone: [facility] 01-06-2022 09:25-0400 Heart rate 84 /min Yamilka Parekh MD Work Phone: [facility] 01-06-2022 09:25-0400 SaO2% (BldA) [Mass fraction] 99 % Yamilka Parekh MD Work Phone: [facility] 01-06-2022 09:25-0400 Systolic blood pressure 160 mm[Hg] Yamilka Parekh MD Work Phone: [facility] 01-01-2022 14:08-0400 Body height 180.[address] Xiang Rogers Work Phone: [facility] Work Phone: 01-01-2022 14:08-0400 Body mass index (BMI) [Ratio] 27.3 kg/m2 Dr. Xiang Rogers Work Phone: [facility] Work Phone: 01-01-2022 14:08-0400 Body temperature 98.5 [degF] Dr. Xiang Rogers Work Phone: [facility] Work Phone: 01-01-2022 14:08-0400 Body weight 89.[address] Xiang Rogers Work Phone: [facility] Work Phone: 01-01-2022 14:08-0400 Diastolic blood pressure 64 mm[Hg] Dr. Xiang Rogers Work Phone: [facility] Work Phone: 01-01-2022 14:08-0400 Heart rate 64 /min Dr. Xiang Rogers Work Phone: [facility] Work Phone: 01-01-2022 14:08-0400 Respiratory rate 18 /min Dr. Xiang Rogers Work Phone: [facility] Work Phone: 01-01-2022 14:08-0400 SaO2% (BldA) [Mass fraction] 95 % Dr. Xiang Rogers Work Phone: [facility] Work Phone: 01-01-2022 14:08-0400 Systolic blood pressure 122 mm[Hg] Dr. Xiang Rogers Work Phone: [facility] Work Phone: 12-09-2021 01:16-0400 Diastolic blood pressure 71 mm[Hg] Dr. Xiang Rogers Work Phone: [facility] Work Phone: 12-09-2021 01:16-0400 Heart rate 74 /min Dr. Xiang Rogers Work Phone: [facility] Work Phone: 12-09-2021 01:16-0400 Respiratory rate 19 /min Dr. Xiang Rogers Work Phone: [facility] Work Phone: 12-09-2021 01:16-0400 SaO2% (BldA) [Mass fraction] 95 % Dr. Xiang Rogers Work Phone: [facility] Work Phone: 12-09-2021 01:16-0400 Systolic blood pressure 144 mm[Hg] Dr. Xiang Rogers Work Phone: [facility] Work Phone: 12-08-2021 23:18-0400 Body height 180.[address] Xiang Rogers Work Phone: [facility] Work Phone: 12-08-2021 23:18-0400 Body mass index (BMI) [Ratio] 26.4 kg/m2 Dr. Xiang Rogers Work Phone: [facility] Work Phone: 12-08-2021 23:18-0400 Body temperature 97.9 [degF] Dr. Xiang Rogers Work Phone: [facility] Work Phone: 12-08-2021 23:18-0400 Body weight 86.[address] Xiang Rogers Work Phone: [facility] Work Phone: 09-18-2021 14:32-0400 Body mass index (BMI) [Ratio] 26.7 kg/m2 Dr. Xiang Rogers Work Phone: [facility] Work Phone: 09-18-2021 14:32-0400 Body temperature 97.2 [degF] Dr. Xiang Rogers Work Phone: [facility] Work Phone: 09-18-2021 14:32-0400 Body weight 87.[address] Xiang Rogers Work Phone: [facility] Work Phone: 09-18-2021 14:32-0400 Diastolic blood pressure 70 mm[Hg] Dr. Xiang Rogers Work Phone: [facility] Work Phone: 09-18-2021 14:32-0400 Heart rate 86 /min Dr. Xiang Rogers Work Phone: [facility] Work Phone: 09-18-2021 14:32-0400 Respiratory rate 16 /min Dr. Xiang Rogers Work Phone: [facility] Work Phone: 09-18-2021 14:32-0400 SaO2% (BldA) [Mass fraction] 97 % Dr. Xiang Rogers Work Phone: [facility] Work Phone: 09-18-2021 14:32-0400 Systolic blood pressure 116 mm[Hg] Dr. Xiang Rogers Work Phone: [facility] Work Phone: 07-19-2021 00:14-0400 Heart rate 78 /min Dr. Xiang Rogers Work Phone: [facility] Work Phone: 07-19-2021 00:14-0400 Respiratory rate 18 /min Dr. Xiang Rogers Work Phone: [facility] Work Phone: 07-19-2021 00:14-0400 SaO2% (BldA) [Mass fraction] 95 % Dr. Xiang Rogers Work Phone: [facility] Work Phone: 07-18-2021 20:48-0400 Body height 180.[address] Xiang Rogers Work Phone: [facility] Work Phone: 07-18-2021 20:48-0400 Body mass index (BMI) [Ratio] 26.9 kg/m2 Dr. Xiang Rogers Work Phone: [facility] Work Phone: 07-18-2021 20:48-0400 Body temperature 98.8 [degF] Dr. Xiang Rogers Work Phone: [facility] Work Phone: 07-18-2021 20:48-0400 Body weight 87.[address] Xiang Rogers Work Phone: [facility] Work Phone: 07-18-2021 20:48-0400 Diastolic blood pressure 83 mm[Hg] Dr. Xiang Rogers Work Phone: [facility] Work Phone: 07-18-2021 20:48-0400 Systolic blood pressure 151 mm[Hg] Dr. Xiang Rogers Work Phone: [facility] Work Phone: 07-18-2021 12:52-0400 Body temperature 98.01 [degF] Gab Culver APRN.ANIMAL RIDES MANAGER Work Phone: [facility] 07-18-2021 12:52-0400 Body weight 88 kg Gab Culver APRN.ANIMAL RIDES MANAGER Work Phone: [facility] 07-18-2021 12:52-0400 Diastolic blood pressure 74 mm[Hg] Gab Culver APRN.ANIMAL RIDES MANAGER Work Phone: [facility] 07-18-2021 12:52-0400 Heart rate 100 /[facility] [employer].ANIMAL RIDES MANAGER Work Phone: [facility] 07-18-2021 12:52-0400 Respiratory rate 18 /[facility] [employer].ANIMAL RIDES MANAGER Work Phone: [facility] 07-18-2021 12:52-0400 SaO2% (BldA) [Mass fraction] 96 % Gab Culver [employer].ANIMAL RIDES MANAGER Work Phone: [facility] 07-18-2021 12:52-0400 Systolic blood pressure 122 mm[Hg] [facility] [employer].ANIMAL RIDES MANAGER Work Phone: [facility] 06-13-2021 13:57-0500 Body temperature 97.8 [degF] Dr. Xiang Rogers Work Phone: [facility] Work Phone: 06-13-2021 13:57-0500 Body weight 88.[address] Xiang Rogers Work Phone: [facility] Work Phone: 06-13-2021 13:57-0500 Diastolic blood pressure 74 mm[Hg] Dr. Xiang Rogers Work Phone: [facility] Work Phone: 06-13-2021 13:57-0500 Heart rate 68 /min Dr. Xiang Rogers Work Phone: [facility] Work Phone: 06-13-2021 13:57-0500 Respiratory rate 16 /min Dr. Xiang Rogers Work Phone: [facility] Work Phone: 06-13-2021 13:57-0500 SaO2% (BldA) [Mass fraction] 98 % Dr. Xiang Rogers Work Phone: [facility] Work Phone: 06-13-2021 13:57-0500 Systolic blood pressure 130 mm[Hg] Dr. Xiang Rogers Work Phone: [facility] Work Phone: Encounters Encounter Date Encounter Type Care Provider Facility Start: 10-11-2024 ambulatory Xiang Rogers Facilit y:[facility] Start: 09-08-2024 End: 09-08-[address] Xiang Rogers DO Work Phone: [facility] Work Phone: Start: 09-08-2024 End: 09-08-2024 Dr. Saúl Flowers MD -[facility] Start: 09-08-2024 End: 09-08-2024 ambulatory Xiang Rogers Facility:[facility] Start: 08-02-2024 End: 08-02-2024 Dr. Xiang Will DO -[facility] Work Phone: Start: 08-02-2024 End: 08-02-2024 ambulatory Xiang Rogers Facility:[facility] Start: 07-29-2024 End: 07-29-2024 Dr. Lawson Castellon DO -Emergency Departmen t Work Phone: Start: 07-29-2024 End: 07-29-2024 Emergency department patient visit Xiang Rogers Facility:[facility] Start: 07-14-2024 End: 07-14-2024 Lubna DEVINE -[facility] Work Phone: Start: 07-14-2024 End: 07-14-2024 ambulatory Xiang Rogers Facility:[facility] Start: 07-12-2024 End: 07-12-2024 Ronit Galvez FOREST FI[employer] EQUIPMENT OPERATORLiviaC -[facility] Work Phone: Start: 07-12-2024 End: 07-12-2024 ambulatory Xiang Rogers Facility:[facility] Start: 06-20-2024 ambulatory Calos Quinn Facility:[facility] Start: 06-20-2024 Dr. Seth morales DO -[facility] Work Phone: Start: 06-20-2024 Dr. Calos Quinn MD -[facility] Start: 06-19-2024 Dr. Alexandru Mckeon MD -[facility] Start: 06-19-2024 Dr. Donna Wolff MD -[facility] Work Phone: Start: 06-18-2024 ambulatory Alexandru Mckeon Fa cility:[facility] Start: 06-18-2024 Dr. Alexandru Mckeon MD -[facility] Start: 06-18-2024 ambulatory Steve Esteban Facili ty:[facility] Start: 06-18-2024 End: 06-20-2024 Evaluation and management of inpatient Steve Esteban Facility:[facility] Start: 06-18-2024 End: 06-20-2024 Dr. Seth Carrington DO -Progressive Care Unit Work Phone: Start: 06-15-2024 ambulatory Xiang Rogers Facilit y:[facility] Start: 06-15-2024 Non-patient / Non-visit Garret Chacon [facility] Start: 06-15-2024 Magaly frazier [facility] Start: 06-13-2024 Non-patient / Non-visit Dr. Saúl talbert MD -[facility] Start: 06-13-2024 End: 06-13-[address] Xiang Rogers DO Work Phone: [facility] Work Phone: Start: 06-13-2024 End: 06-13-2024 Patient encounter procedure Lubna DEVINE -Cardiovascular Services Work Phone: Start: 06-13-2024 End: 06-13-2024 Dr. Saúl Flowers MD -[facility] Start: 06-13-2024 End: 06-13-2024 ambulatory Lubna Manley Facility:[facility] Start: 06-07-2024 ambulatory Xiang Rogers Facilit y:[facility] Start: 05-21-2024 End: 05-21-2024 Dr. Saúl Aguilar DO -Emergency Departme nt Work Phone: Start: 05-21-2024 End: 05-21-2024 Emergency department patient visit Dr. Saúl Aguilar DO -Emergency Department Work Phone: Start: 05-17-2024 End: 05-17-2024 Patient encounter procedure Lubna DEVINE -[facility] Work Phone: Start: 05-17-2024 End: 05-17-2024 Lubna DEVINE -[facility] Work Phone: Start: 05-17-2024 End: 05-17-2024 ambulatory Lubna Manley Facility:[facility] Start: 05-09-2024 ambulatory Xiang Rogers Facilit y:[facility] Start: 05-09-2024 Non-patient / Non-visit Dr. Ren [facility] Start: 05-09-2024 End: 05-09-2024 Patient encounter procedure Magaly Abdi PA -Cardiovascular Services Work Phone: Start: 05-09-2024 End: 05-09-2024 ambulatory Xiang Rogers Facility:[facility] Start: 05-03-2024 End: 05-03-[address] Xiang Will DO -[facility] Work Phone: Start: 05-03-2024 End: 05-03-2024 ambulatory Xiang Rogers Facility:[facility] Start: 04-20-2024 ambulatory Xiang Rogers Facilit y:[facility] Start: 04-20-2024 Non-patient / Non-visit Dr. Saúl talbert MD -[facility] Start: 04-20-2024 End: 04-20-2024 Admission to same day surgery center Dr. Saúl Flowers MD -Bar Attendant/Special Procedures Work Phone: Start: 04-20-2024 End: 04-20-2024 ambulatory Xiang Rogers Facility:[facility] Start: 04-08-2024 End: 04-08-2024 Patient encounter procedure Lubna DEVINE -[facility] Work Phone: Start: 04-08-2024 End: 04-08-2024 ambulatory Xiang Rogers Facility:[facility] Start: 04-01-2024 End: 04-01-2024 Patient encounter procedure Magaly DEVINE -[facility] Work Phone: Start: 04-01-2024 End: 04-01-2024 ambulatory Xiang Rogers Facility:[facility] Start: 03-29-2024 End: 03-29-2024 Patient encounter procedure Lubna DEVINE -[facility] Work Phone: Start: 03-29-2024 End: 03-29-2024 ambulatory Xiang Rogers Facility:[facility] Start: 03-22-2024 End: 03-22-2024 Patient encounter procedure Lubna DEVINE -[facility] Work Phone: Start: 03-22-2024 End: 03-22-2024 ambulatory Xiang Rogers Facility:[facility] Start: 03-09-2024 ambulatory Xiang Rogers Facilit y:[facility] Start: 03-09-2024 Non-patient / Non-visit Dr. Saúl talbert MD -[facility] Start: 03-09-2024 End: 03-09-2024 Patient encounter procedure Jose Small DPM -Cardiovascular Services Work Phone: Start: 03-09-2024 End: 03-09-2024 ambulatory Xiang Rogers Facility:[facility] Start: 02-24-2024 End: 02-24-[address] Xiang Will DO -[facility] Work Phone: Start: 02-24-2024 End: 02-24-2024 ambulatory Xiang Rogers Facility:[facility] Start: 02-24-2024 End: 02-24-2024 Patient encounter procedure Lubna DEVINE -[facility] Work Phone: Start: 02-24-2024 End: 02-24-2024 ambulatory Xiang Rogers Facility:[facility] Start: 02-23-2024 End: 02-23-2024 ambulatory Xiang Rogers Facility:[facility] Start: 01-27-2024 ambulatory Xiang Rogers Facilit y:[facility] Start: 01-07-2024 End: 01-07-2024 ambulatory Xiang Rogers Facility:[facility] Start: 12-31-2023 End: 12-31-2023 Office outpatient visit 25 minutes Gab Culver APRN.CNP Work Phone: [facility] Comment on above: Sinobronchitis (Prim jagjit Dx) Start: 11-13-2023 ambulatory Xiang Rogers Facilit y:[facility] Start: 11-13-2023 End: 11-13-2023 ambulatory Xiang Rogers Facility:[facility] Start: 10-28-2023 End: 10-28-2023 ambulatory Xiang Rogers Facility:[facility] Start: 09-21-2023 End: 09-21-2023 ambulatory Xiang Rogers Facility:[facility] Start: 06-02-2023 End: 06-02-[address] Xiang Rogers Work Phone: [facility] Work Phone: Start: 06-02-2023 End: 06-02-[address] Xiang Rogers Work Phone: [facility] Work Phone: Start: 05-24-2023 End: 05-24-2023 Emergency department patient visit Dr. Xiang Rogers Work Phone: [facility]-Emergency Department Work Phone: Start: 04-25-2023 End: 04-25-2023 Emergency department patient visit Dr. Xiang Rogers Work Phone: [facility]-Emergency Department Work Phone: Start: 04-15-2023 End: 04-15-[address] Xiang Rogers Work Phone: [facility] Work Phone: Start: 04-15-2023 End: 04-15-[address] Xiang Rogers Work Phone: [facility] Work Phone: Start: 01-26-2023 End: 01-26-[address] Xiang Rogers Work Phone: [facility] Work Phone: Start: 01-13-2023 End: 01-13-[address] Xiang Rogers Work Phone: [facility] Work Phone: Start: 06-02-2022 End: 06-02-[address] Xiang Rogers Work Phone: [facility] Work Phone: Start: 06-02-2022 End: 06-02-[address] Xiang Rogers Work Phone: [facility]-Laboratory Start: 05-23-2022 Non-patient / Non-visit Dr. Velazquez Work Phone: [facility] Start: 05-21-2022 End: 05-21-2022 Emergency department patient visit Dr. Xiang Rogers Work Phone: [facility]-Emergency Department Start: 05-19-2022 End: 05-19-[address] Xiang Rogers Work Phone: [facility] Start: 04-24-2022 End: 04-24-[address] Xiang Rogers Work Phone: [facility] Start: 04-21-2022 Non-patient / Non-visit Dr. Velazquez Work Phone: [facility] Start: 04-19-2022 Non-patient / Non-visit Dr. Velazquez Work Phone: [facility] Start: 04-19-2022 Non-patient / Non-visit Dr. Velazquez Work Phone: [facility] Inpatient Physicians Start: 04-18-2022 Non-patient / Non-visit Dr. Velazquez Work Phone: [facility] Start: 04-18-2022 End: 04-19-2022 Evaluation and management of inpatient Dr. Xiang Rogers Work Phone: [facility]-Intensive Care Unit Start: 04-09-2022 End: 04-09-[address] Xiang Rogers Work Phone: [facility] Internal [facility] Start: 03-11-2022 End: 03-11-[address] Xiang Rogers Work Phone: [facility] Work Phone: Start: 03-11-2022 End: 03-11-[address] Xiang Rogers Work Phone: [facility] Start: 03-01-2022 End: 03-01-2022 Emergency department patient visit Dr. Xiang Rogers Work Phone: [facility]-Emergency Department Start: 02-04-2022 End: 02-04-2022 ambulatory YAMILKA PAREKH Facility:[facility] Start: 02-04-2022 End: 02-04-2022 Patient encounter procedure Yamilka Parekh MD Work Phone: General Surgery Comment on above: Recurrent left ingui nal hernia (Primary Dx) Start: 01-28-2022 End: 01-28-2022 ambulatory YAMILKA PAREKH Facility:[facility] Start: 01-28-2022 End: 01-28-2022 Patient encounter procedure Yamilka Parekh MD Work Phone: General Surgery Comment on above: Left groin pain (Ruchi frantz Dx) Start: 01-28-2022 End: 01-28-2022 Subsequent hospital visit by physician Clotilde [facility] (I-Stat) Work Phone: Cat Scan Comment on above: Left groin pain [R10 .32] Start: 01-08-2022 Non-patient / Non-visit Dr. Velazquez Work Phone: [facility] Internal [facility] Start: 01-06-2022 End: 01-06-2022 ambulatory YAMILKA PAREKH Facility:[facility] Start: 01-06-2022 End: 01-06-2022 Patient encounter procedure Yamilka Parekh MD Work Phone: General Surgery Comment on above: Left groin pain (Ruchi frantz Dx) Start: 01-01-2022 End: 01-01-[address] Xiang Rogers Work Phone: [facility] Work Phone: Start: 01-01-2022 End: 01-01-[address] Xiang Rogers Work Phone: [facility] Start: 12-08-2021 End: 12-09-2021 Emergency department [facility] Start: 09-18-2021 End: 09-18-[address] Xiang Rogers Work Phone: [facility] Start: 07-18-2021 End: 07-19-2021 Emergency department patient visit Dr. Xiang Rogers Work Phone: [facility]-Emergency Department Start: 07-18-2021 End: 07-18-2021 ambulatory YAMILKA PAREHK Facility:[facility] Start: 07-18-2021 End: 07-18-2021 Patient encounter procedure Gab Culver APRN.CNP Work Phone: [facility] Comment on above: URI with cough and c ongestion (Primary Dx) Start: 06-13-2021 End: 06-13-[address] Xiang Rogers Work Phone: [facility]-Laboratory, [facility] Start: 04-01-2021 End: 04-01-2021 ambulatory YAMILKA PAREKH [facility] Procedures Date Procedure Procedure Detail Performing Clinician Start: 07-29-2024 Plain chest X-ray Dr. Jovana Rogers DO Work Phone: Start: 07-29-2024 Blood count smear mc rscp w/mnl difrntl wbc count Dr. Xiang Rogers DO Work Phone: Start: 07-29-[address] Xiang Rogers DO Work Phone: Start: 07-29-2024 Mean corpuscular hemoglobin concentration determination Dr. Xiang Rogers DO Work Phone: Start: 07-29-2024 Nucleated red blood cell count procedure Dr. Xiang Rogers DO Work Phone: Start: 07-29-2024 Platelet mean volume determination Dr. Xiang Rogers DO Work Phone: Start: 06-20-2024 Cardiovascular stres s test using pharmacologic stress agent Dr. Xiang Rogers DO Work Phone: Start: 06-20-[address] Xiang Rogers DO Work Phone: Start: 06-20-2024 Mean corpuscular hemoglobin concentration determination Dr. Xiang Rogers DO Work Phone: Start: 06-20-2024 Platelet mean volume determination Dr. Xiang Rogers DO Work Phone: Start: 06-19-2024 Blood count smear mc rscp w/mnl difrntl wbc count Dr. Xiang Rogers DO Work Phone: Start: 06-19-2024 Nucleated red blood cell count procedure Dr. Xiang Rogers DO Work Phone: Start: 06-19-2024 Serum inorganic phos phate measurement Dr. Xiang Rogers DO Work Phone: Start: 06-19-2024 Plain chest X-ray Dr. Jovana Rogers DO Work Phone: Start: 06-18-[address] Xiang Rogers DO Work Phone: Start: 06-18-2024 Dr. Latoya Rogers DO Work Phone: Start: 06-18-2024 Urine microscopy: re d cells Dr. Xiang Rogers DO Work Phone: Start: 06-18-2024 Urnls dip stick/tabl et reagent auto microscopy Dr. Xiang Rogers DO Work Phone: Start: 06-18-2024 Carbon dioxide measurement, partial pressure Dr. Xiang Rogers DO Work Phone: Start: 06-18-2024 Gases blood o2 satur ation only direct brenda Dr. Xiang Rogers DO Work Phone: Start: 06-18-2024 Measurement of parti al pressure of oxygen in blood Dr. Xiang Rogers DO Work Phone: Start: 06-18-[address] Xiang Rogers DO Work Phone: Start: 06-18-2024 CT angiography of ch est with contrast Dr. Xiang Rogers DO Work Phone: Start: 06-17-2024 Plain chest X-ray Dr. Jovana Rogers DO Work Phone: Start: 05-21-2024 Plain chest X-ray Dr. Jovana Rogers DO Work Phone: Start: 05-21-2024 SARS-CoV-2, Influenz a & RSV (PCR) Dr. Xiang Rogers DO Work Phone: Start: 05-21-2024 Dr. Latoya Rogers DO Work Phone: Start: 03-29-2024 CT of abdominal aort a with contrast Dr. Xiang Rogers DO Work Phone: Start: 06-02-[address] Latoya Rogers Work Phone: Start: 04-25-2023 X-ray of both feet Dr. Xiang Rogers Work Phone: Start: 04-25-2023 CT cervical spine wi thout contrast Dr. Xiang Rogers Work Phone: Start: 04-25-2023 CT of head without contrast Dr. Xiang Rogers Work Phone: Start: 04-25-2023 Plain x-ray of elbow Dr Karen Rogers Work Phone: Start: 04-25-2023 Radiologic examinati on of knee Dr. Xiang Rogers Work Phone: Start: 05-21-2022 X-ray of both feet Dr. Xiang Rogers Work Phone: Start: 04-18-2022 Plain chest X-ray Dr. Jovana Rogers Work Phone: Start: 03-11-[address] Latoya Rogers Work Phone: Start: 01-28-2022 Ct pelvis w/o contra st material Yamilka Parekh MD Work Phone: Start: 12-09-2021 Plain chest X-ray Dr. Jovana Rogers Work Phone: Start: 07-18-2021 Plain chest X-ray Dr. Jovana Rogers Work Phone: Start: 07-18-2021 Influenza Types A,B Direct FA (PORFIRIO) Dr. Xiang Rogers Work Phone: Start: 12-23-2016 Adult depression scr eening assessment Gab Culver [employer]ANIMAL RIDES MANAGER Work Phone: Start: 04-06-2006 History of coronary artery bypass grafting H/O coronary artery bypass surgery Magaly DEVINE Comment on above: CABG x 4 ALMANZAR-LAD, R ESTRELLITA-RPDA, SVG-D1, RA-OM1; History of coronary artery bypass grafting Dr. Xiang Rogers DO Work Phone: History of coronary artery bypass grafting Dr. Seth Carrington DO SARS-CoV-2 & FLU Ant igen (Rapid) Dr. Xaing Rogers Work Phone: Plan of Treatment Date Care Activity Detail Author Start: 04-25-2033 Urine microalbumin profile DTaP,Tdap,Td Vaccine (3 - Td or Tdap) [facility] Start: 07-29-2024 [facility] Start: 07-29-2024 End: 07-29-[address] [facility] Start: 06-20-2024 Patient discharge [facility] Start: 06-19-2024 [facility] Start: 06-19-2024 [facility] Start: 06-18-2024 Assessment of risk o f venous thromboembolism [facility] Start: 06-18-2024 Care regimes management [facility] Start: 06-18-2024 Catheterization of vein [facility] Start: 06-18-2024 Continuous pulse oximetry [facility] Start: 06-18-2024 Elevation of head of bed [facility] Start: 06-18-2024 Insertion of cathete r into peripheral vein [facility] Start: 06-18-2024 Measuring intake and output [facility] Start: 06-18-2024 Notification of physician [facility] Start: 06-18-2024 [address]xygen therapy [facility] Start: 06-18-2024 Providing care accor ding to standard [facility] Start: 06-18-2024 Referral to medical imaging technician [facility] Start: 06-18-2024 Referral to service [facility] Start: 06-18-2024 Tobacco use cessatio n education [facility] Start: 06-18-2024 Vital signs measurements [facility] Start: 06-18-2024 End: 06-18-[address] [facility] Start: 06-18-2024 Following clinical pathway protocol [facility] Start: 06-18-2024 End: 06-18-2024 Admission procedure [facility] Start: 06-18-2024 Dual pressure sponta neous ventilation support [facility] Start: 06-18-2024 Consultation [facility] Start: 06-18-2024 Inhalation therapy procedure [facility] Start: 06-17-2024 End: 06-18-[address] [facility] Start: 06-11-2024 Urine microalbumin profile DTaP,Tdap,Td Vaccine (2 - Td or Tdap) [facility] Start: 05-21-2024 [facility] Start: 05-21-2024 Airborne precautions [facility] Start: 05-09-2024 Echo tthrc r-t 2d w/wom-mode compl spec&colr d TTE W/DOPPLER COMPLETE [facility] Start: 04-20-2024 Patient discharge [facility] Start: 12-06-2023 Covid-19 Vaccine ( season) Covid-19 Vaccine ( season) [facility] Start: 12-06-2023 Influenza vaccination Influenza Vacc ine (#1) [facility] Start: 05-24-2023 Incision & drainage abscess simple/single I&D ABSCESS SIMPLE/SINGLE [facility] Start: 05-24-2023 [facility] Start: 04-25-2023 [facility] Start: 12-05-2022 Influenza vaccination Influenza Vacc ine (#1) [facility] Start: 05-23-2022 Patient referral [facility] Work Phone: Start: 04-21-2022 Patient referral [facility] Work Phone: Start: 04-19-2022 Patient discharge [facility] Start: 04-18-2022 Patient discharge [facility] Start: 04-18-2022 End: 04-18-2022 Provision of activity privileges [facility] Start: 04-18-2022 Scheduling [facility] Start: 04-18-2022 Vascular disease ris k assessment [facility] Start: 04-18-2022 End: 04-18-2022 Notification of physician [facility] Start: 04-18-2022 Patient education [facility] Start: 04-18-2022 Pulse taking [facility] Start: 04-18-2022 End: 04-18-2022 Taking patient vital signs [facility] Start: 04-18-2022 Wound care [facility] Start: 04-18-2022 End: 04-18-[address] [facility] Start: 04-18-2022 Catheterization of vein [facility] Start: 04-18-2022 Medication not administered [facility] Start: 04-18-2022 Notification of physician [facility] Start: 04-18-2022 [facility] Start: 04-18-2022 Following clinical pathway protocol [facility] Start: 04-18-2022 Assessment of risk o f venous thromboembolism [facility] Start: 04-18-2022 Care regimes management [facility] Start: 04-18-2022 Inhalation therapy procedure [facility] Start: 04-18-2022 Insertion of cathete r into peripheral vein [facility] Start: 04-18-2022 Measuring intake and output [facility] Start: 04-18-2022 Oxygen therapy [facility] Start: 04-18-2022 Providing care accor ding to standard [facility] Start: 04-18-2022 Provision of activit y privileges [facility] Start: 04-18-2022 Referral to medical imaging technician [facility] Start: 04-18-2022 Referral to occupati onal therapist [facility] Start: 04-18-2022 Referral to service [facility] Start: 04-18-2022 Tobacco use cessatio n education [facility] Start: 04-18-2022 [facility] Start: 04-18-2022 Verification routine [facility] Work Phone: Start: 04-18-2022 Admission procedure [facility] Start: 04-18-2022 [facility] Work Phone: Start: 04-06-2022 Depression Assessment [facility] Start: 12-05-2021 Influenza vaccination [facility] Start: 04-06-2021 DEPRESSION ASSESSMENT DEPRESSION ASS ESSMENT [facility] Start: 06-06-2020 PROSTATE CANCER SCRE ENING DISCUSSION PROSTATE CANCER SCREENING DISCUSSION [facility] Start: 06-06-2020 Prostate specific an tigen measurement Prostate Cancer Screening Discussion [facility] Start: 2020 Hepatitis B Vaccine (1 of 3 - Risk 3-dose series) Hepatitis B Vaccine (1 of 3 - Risk 3-dose series) [facility] Start: 2020 RSV Vaccine (1 - 1-d ose 60+ series) RSV Vaccine (1 - 1-dose 60+ series) [facility] Start: 2020 RSV Vaccine (1 - Ris k 60-74 years 1-dose series) RSV Vaccine (1 - Risk 60-74 years 1-dose series) [facility] Start: 06-18-2019 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 DISEASE VISIT ANNUAL PCP TEAM CHRONIC DISEASE VISIT [facility] Start: 12-23-2017 Adult depression screening assessment DEPRESSION SCREENING [facility] Start: 01-13-2017 3 comp foot exam completed DIABETIC FOOT EXAM [facility] Start: 01-13-2017 Diabetic foot examination Diabetic F oot Exam [facility] Start: 01-13-2017 Hepatitis B surface antibody level LDL CHOLESTEROL [facility] Start: 10-08-2016 PNEUMOCOCCAL (2 - PCV) PNEUMOCOCCAL (2 - PCV) [facility] Start: 10-08-2016 Pneumococcal vaccination [facility] Start: 04-15-2016 Hemoglobin A1c measurement HbA1C [facility] Start: 04-15-2016 Hemoglobin A1c/Hemoglobin.total in Blood HBA1C [facility] Start: 01-22-2015 Influenza vaccination LUNG CANCER [facility] Start: 01-22-2010 Influenza vaccination LUNG CANCER [facility] Start: 01-22-2010 Screening for malign ant neoplasm of lung Lung Cancer Screening [facility] Start: 01-22-2010 SHINGRIX VACCINE (1 of 2) NOVA GRIX VACCINE (1 of 2) [facility] Start: 01-22-2005 COLOGUARD (FIT-DNA) COLOGUARD (FIT-D NA) [facility] Start: 01-22-2005 Colonoscopy COLONOSCOPY [facility] Start: 01-22-2005 COLORECTAL CANCER SCREENING COLORECTAL CANCER SCREENING [facility] Start: 01-22-[address] COLONOGRAPHY [facility] Start: 01-22-2005 FECAL OCCULT BLOOD FECAL OCCULT BLOO D [facility] Start: 01-22-2005 Screening for malign ant neoplasm of colon [facility] Start: 01-22-2005 SIGMOIDOSCOPY SIGMOIDOSCOPY [facility] Start: 01-22-1979 Urine microalbumin profile DTAP,TDAP,TD (1 - Tdap) [facility] Start: 01-22-1978 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 DISEASE VISIT ANNUAL PCP TEAM CHRONIC DISEASE VISIT [facility] Start: 01-22-1978 Anxiety Screening Anxiety Screening [facility] Start: 01-22-1978 Depression Screening Depression Scre ening [facility] Start: 01-22-1978 HIV SCREENING HIV SCREENING [facility] Start: 01-22-1978 HIV screening HIV Screening [facility] Start: 01-22-1970 Glaucoma screening Dilated Retinal E xam [facility] Start: 01-22-1970 Hepatitis B screening URINE ALBUMIN:CREATININE RATIO [facility] Start: 01-22-1970 Hepatitis C antibody , confirmatory test DILATED RETINAL EXAM [facility] Start: 01-22-1965 COVID-19 VACCINE (1) COVID-19 VACCIN E (1) [facility] Start: 1960 COVID-19 VACCINE (#1) COVID-19 VACCI NE (#1) [facility] End: 02-05-2023 Ct pelvis w/o contrast material CT PELVIS WO IVCON Radiology Routine Left groin pain 1 Occurrences starting 01/06/2022 until 02/05/[address] [facility] Work Phone: Comment on above: 1 Occurrences starti ng 01/06/2022 until 02/05/2023 Hemoglobin A1c/Hemoglobin.total in Blood [facility] Work Phone: Hemoglobin A1c/Hemoglobin.total in Blood [facility] Lipid 1996 panel - S belinda or Plasma [facility] Patient Education [facility] Work Phone: Patient referral [facility] Work Phone: US Carotid arteries [facility] US Heart limited [facility] [place] [facility] Immunizations Immunization Date Immunization Notes Care Provider Karla garcia 04-25-2023 tetanus toxoid, redu jesse diphtheria toxoid, and acellular pertussis vaccine, adsorbed Dr. Xiang Rogers Work Phone: [facility] 12-23-2016 influenza, injectabl e, quadrivalent, contains preservative Gab Culver [employer]IMAL RIDES MANAGER Work Phone: [facility] 12-23-2016 influenza virus vacc ine, unspecified formulation Ct ([facility]) Work Phone: [facility] 10-09-2015 pneumococcal polysaccharide vaccine, 23 valent Gab Culver [employer].ANIMAL RIDES MANAGER Work Phone: [facility] Work Phone: 06-11-2014 tetanus toxoid, redu jesse diphtheria toxoid, and acellular pertussis vaccine, adsorbed Dr. Xiang Rogers Work Phone: [facility] Payers Date Payer Category Payer Self-pay [id number] 2023 Unknown [id number] 2023 Unknown NEVILLE LOZADA HI X [id number] 2023-Present [phone] [address] [address] [place] [address] [facility] [id number] 2023 Unknown [id number] 2020 Medicaid [employer] [facility] [id number] 2020-Present [phone] [address] [place] [address] Medicaid [id number] 2020 Medicaid [id number] 2020 Unknown [id number] 2014 Unknown R TEGAN [id number] Unknown 0 [id number] Unknown [id number] 2.16.840.1.749620.3.579.2.462 Unknown [id number] 2.16.840.1.301707.3.579.2.462 Unknown [id number] 2.16.840.1.680592.3.579.2.462 Unknown [id number] 2.16.840.1.717691.3.579.2.462 Unknown [id number] 2.16.840.1.660423.3.579.2.462 Unknown [id number] 2.16.840.1.477319.3.579.2.462 Unknown [id number] 2.16.840.1.419300.3.579.2.462 Unknown [id number] 2.16.840.1.669413.3.579.2.462 Unknown [id number] 2.16.840.1.109760.3.579.2.462 Unknown [id number] 2.16.840.1.075403.3.579.2.462 Unknown [id number] 2.16.840.1.367950.3.579.2.462 Unknown [id number] 2.16.840.1.676978.3.579.2.462 Unknown [id number] 2.16.840.1.306979.3.579.2.462 Unknown [id number] 2.16.840.1.357585.3.579.2.462 Unknown [id number] 2.16.840.1.839716.3.579.2.462 Unknown [id number] 2.16.840.1.789851.3.579.2.462 Unknown [id number] 2.16.840.1.300691.3.579.2.462 Unknown [id number] 2.16.840.1.422771.3.579.2.462 Unknown [id number] 2.16.840.1.902603.3.579.2.462 Unknown [id number] 2.16.840.1.176348.3.579.2.462 Unknown [id number] 2.16.840.1.233751.3.579.2.462 Unknown [id number] 2.16.840.1.450587.3.579.2.462 Unknown [id number] 2.16.840.1.707005.3.579.2.462 Unknown [id number] 2.16.840.1.250905.3.579.2.462 Unknown [id number] 2.16.840.1.804238.3.579.2.462 Unknown [id number] 2.16.840.1.543358.3.579.2.462 Unknown [id number] 2.16.840.1.662689.3.579.2.462 Unknown [id number] 2.16.840.1.129678.3.579.2.462 Unknown [id number] 2.16.840.1.129671.3.579.2.462 Unknown [id number] 2.16.840.1.385228.3.579.2.462 Unknown [id number] 2.16.840.1.205332.3.579.2.462 Unknown [id number] 2.16840.1.800336.3.579.2.462 Unknown [id number] 2.16.840.1.462522.3.579.2.462 Unknown [id number] 2.16.840.1.623777.3.579.2.462 Unknown [id number] 2.16.840.1.217886.3.579.2.462 Unknown [id number] 2.16.840.1.619426.3.579.2.462 Unknown [id number] 2.16.840.1.910756.3.579.2.462 Unknown [id number] 2.16.840.1.383505.3.579.2.462 Unknown [id number] 2.16.840.1.621115.3.579.2.462 Unknown [id number] 2.16.840.1.792501.3.579.2.462 Unknown [id number] 2.16.840.1.570540.3.579.2.462 Unknown [id number] 2.16.840.1.061665.3.579.2.462 Social History Date Type Detail Facility Start: 01-06-2022 End: 12-31-2023 Tobacco smoking status NHIS Smokes tobacco daily [facility] Work Phone: History of tobacco use Cigarette Smoker [facility] Start: 07-18-2021 End: 12-31-2023 Alcohol intake Current non-drinker of alcohol (finding) [facility] Start: 1960 Sex Assigned At Not on file [facility] Start: 07-08-2021 End: 02-04-2022 Exposure to SARS-CoV-2 (event) Not sure [facility] Start: 07-18-2021 End: 06-02-2023 Tobacco smoking status NHIS Unknown if ever smoked [facility] Start: 04-12-2019 None [facility] Start: 04-12-2019 Spouse/ Signif icant Other [facility] Start: 08-11-2020 Cigarettes [facility] Start: 1960 Sex Assigned At Male [facility] Start: 01-06-2022 End: 05-02-2022 Cigarettes smoked current (pack per day) - Reported 2 [facility] Start: 01-06-2022 End: 12-31-2023 Tobacco use and exposure Smokeless tobacco non-user [facility] Start: 01-06-2022 Tobacco Comment started at age 14 [facility] Start: 01-28-2022 End: 05-02-2022 Tobacco use panel [facility] National Score (1-10 0), lower number is lower risk Not on file [facility] Start: 06-17-2024 End: 07-29-2024 Tobacco smoking status NHIS Current Heavy tobacco smoker [facility] Start: 06-23-2024 Sex Male (finding) [facility] Medical Equipment Procedure Code Equipment Code Equipment Origin al Text Equipment Identifier Dates [id number], [id number], [id number] Start: 01-21-2016 Comment on above: Test blood sugar(s) 2 daily. Dx: E11.65. Insulin: Yes Use one needle per d ose. 1 per day. Test blood sugar(s) 2 daily. Dx: E11.65 Insulin: Yes Blood Sugar Diagnostic (Freestyle Test) strip Start: 04-02-2021 Lancets (Freesty le Lancets) 28 gauge misc Start: 04-02-2021 Pen Needle, Diabetic (1st Tier Unifine Pentips Plus) 31 gauge x 3/16" needle Start: 04-02-2021 Blood Sugar Diagnostic (Freestyle Test) strip Start: 06-10-2019 End: 04-02-2021 Lancets (Freesty le Lancets) 28 gauge misc Start: 06-10-2019 End: 04-02-2021 Pen Needle, Diabetic (1st Tier Unifine Pentips Plus) 31 gauge x 3/16" needle Start: 06-01-2019 End: 08-06-2020 Pen Needle, Diabetic (1st Tier Unifine Pentips Plus) 31 gauge x 3/16" needle Start: 08-06-2020 End: 04-02-2021 Blood Sugar Diagnostic (Freestyle Test) strip Start: 04-02-2021 Lancets (Freesty le Lancets) 28 gauge misc Start: 04-02-2021 Pen Needle, Diabetic (1st Tier Unifine Pentips Plus) 31 gauge x 3/16" needle Start: 04-02-2021 Blood Sugar Diagnostic (Freestyle Test) strip Start: 06-10-2019 End: 04-02-2021 Lancets (Freesty le Lancets) 28 gauge misc Start: 06-10-2019 End: 04-02-2021 Pen Needle, Diabetic (1st Tier Unifine Pentips Plus) 31 gauge x 3/16" needle Start: 06-01-2019 End: 08-06-2020 Pen Needle, Diabetic (1st Tier Unifine Pentips Plus) 31 gauge x 3/16" needle Start: 08-06-2020 End: 04-02-2021 Blood Sugar Diagnostic (Freestyle Test) strip Start: 04-02-2021 Lancets (Freesty le Lancets) 28 gauge misc Start: 04-02-2021 Pen Needle, Diabetic (1st Tier Unifine Pentips Plus) 31 gauge x 3/16" needle Start: 04-02-2021 Blood Sugar Diagnostic (Freestyle Test) strip Start: 06-10-2019 End: 04-02-2021 Lancets (Freesty le Lancets) 28 gauge misc Start: 06-10-2019 End: 04-02-2021 Pen Needle, Diabetic (1st Tier Unifine Pentips Plus) 31 gauge x 3/16" needle Start: 06-01-2019 End: 08-06-2020 Pen Needle, Diabetic (1st Tier Unifine Pentips Plus) 31 gauge x 3/16" needle Start: 08-06-2020 End: 04-02-2021 Blood Sugar Diagnostic (Freestyle Test) strip Start: 04-02-2021 Lancets (Freesty le Lancets) 28 gauge misc Start: 04-02-2021 Pen Needle, Diabetic (1st Tier Unifine Pentips Plus) 31 gauge x 3/16" needle Start: 04-02-2021 Blood Sugar Diagnostic (Freestyle Test) strip Start: 06-10-2019 End: 04-02-2021 Lancets (Freesty le Lancets) 28 gauge misc Start: 06-10-2019 End: 04-02-2021 Pen Needle, Diabetic (1st Tier Unifine Pentips Plus) 31 gauge x 3/16" needle Start: 06-01-2019 End: 08-06-2020 Pen Needle, Diabetic (1st Tier Unifine Pentips Plus) 31 gauge x 3/16" needle Start: 08-06-2020 End: 04-02-2021 Blood Sugar Diagnostic (Freestyle Test) strip Start: 04-02-2021 Lancets (Freesty le Lancets) 28 gauge misc Start: 04-02-2021 Pen Needle, Diabetic (1st Tier Unifine Pentips Plus) 31 gauge x 3/16" needle Start: 04-02-2021 Blood Sugar Diagnostic (Freestyle Test) strip Start: 06-10-2019 End: 04-02-2021 Lancets (Freesty le Lancets) 28 gauge misc Start: 06-10-2019 End: 04-02-2021 Pen Needle, Diabetic (1st Tier Unifine Pentips Plus) 31 gauge x 3/16" needle Start: 06-01-2019 End: 08-06-2020 Pen Needle, Diabetic (1st Tier Unifine Pentips Plus) 31 gauge x 3/16" needle Start: 08-06-2020 End: 04-02-2021 Blood Sugar Diagnostic (Freestyle Test) strip Start: 04-02-2021 Lancets (Freesty le Lancets) 28 gauge misc Start: 04-02-2021 Pen Needle, Diabetic (1st Tier Unifine Pentips Plus) 31 gauge x 3/16" needle Start: 04-02-2021 Blood Sugar Diagnostic (Freestyle Test) strip Start: 06-10-2019 End: 04-02-2021 Lancets (Freesty le Lancets) 28 gauge misc Start: 06-10-2019 End: 04-02-2021 Pen Needle, Diabetic (1st Tier Unifine Pentips Plus) 31 gauge x 3/16" needle Start: 06-01-2019 End: 08-06-2020 Pen Needle, Diabetic (1st Tier Unifine Pentips Plus) 31 gauge x 3/16" needle Start: 08-06-2020 End: 04-02-2021 Blood Sugar Diagnostic (Freestyle Test) strip Start: 04-02-2021 Lancets (Freesty le Lancets) 28 gauge misc Start: 04-02-2021 Pen Needle, Diabetic (1st Tier Unifine Pentips Plus) 31 gauge x 3/16" needle Start: 04-02-2021 Blood Sugar Diagnostic (Freestyle Test) strip Start: 06-10-2019 End: 04-02-2021 Lancets (Freesty le Lancets) 28 gauge misc Start: 06-10-2019 End: 04-02-2021 Pen Needle, Diabetic (1st Tier Unifine Pentips Plus) 31 gauge x 3/16" needle Start: 06-01-2019 End: 08-06-2020 Pen Needle, Diabetic (1st Tier Unifine Pentips Plus) 31 gauge x 3/16" needle Start: 08-06-2020 End: 04-02-2021 Blood Sugar Diagnostic (Freestyle Test) strip Start: 04-02-2021 Lancets (Freesty le Lancets) 28 gauge misc Start: 04-02-2021 Pen Needle, Diabetic (1st Tier Unifine Pentips Plus) 31 gauge x 3/16" needle Start: 04-02-2021 Blood Sugar Diagnostic (Freestyle Test) strip Start: 06-10-2019 End: 04-02-2021 Lancets (Freesty le Lancets) 28 gauge misc Start: 06-10-2019 End: 04-02-2021 Pen Needle, Diabetic (1st Tier Unifine Pentips Plus) 31 gauge x 3/16" needle Start: 06-01-2019 End: 08-06-2020 Pen Needle, Diabetic (1st Tier Unifine Pentips Plus) 31 gauge x 3/16" needle Start: 08-06-2020 End: 04-02-2021 Blood Sugar Diagnostic (Freestyle Test) strip Start: 04-02-2021 Lancets (Freesty le Lancets) 28 gauge [facility] Start: 04-02-2021 Pen Needle, Diabetic (1st Tier Unifine Pentips Plus) 31 gauge x 3/16" needle Start: 04-02-2021 Blood Sugar Diagnostic (Freestyle Test) strip Start: 06-10-2019 End: 04-02-2021 Lancets (Freesty le Lancets) 28 gauge [facility] Start: 06-10-2019 End: 04-02-2021 Pen Needle, Diabetic (1st Tier Unifine Pentips Plus) 31 gauge x 3/16" needle Start: 06-01-2019 End: 08-06-2020 Pen Needle, Diabetic (1st Tier Unifine Pentips Plus) 31 gauge x 3/16" needle Start: 08-06-2020 End: 04-02-2021 Blood Sugar Diagnostic (Freestyle Test) strip Start: 04-02-2021 Lancets (Freesty le Lancets) 28 gauge [facility] Start: 04-02-2021 Pen Needle, Diabetic (1st Tier Unifine Pentips Plus) 31 gauge x 3/16" needle Start: 04-02-2021 Blood Sugar Diagnostic (Freestyle Test) strip Start: 06-10-2019 End: 04-02-2021 Lancets (Freesty le Lancets) 28 gauge [facility] Start: 06-10-2019 End: 04-02-2021 Pen Needle, Diabetic (1st Tier Unifine Pentips Plus) 31 gauge x 3/16" needle Start: 06-01-2019 End: 08-06-2020 Pen Needle, Diabetic (1st Tier Unifine Pentips Plus) 31 gauge x 3/16" needle Start: 08-06-2020 End: 04-02-2021 Blood Sugar Diagnostic (Freestyle Test) strip Start: 04-02-2021 Lancets (Freesty le Lancets) 28 gauge misc Start: 04-02-2021 Pen Needle, Diabetic (1st Tier Unifine Pentips Plus) 31 gauge x 3/16" needle Start: 04-02-2021 Blood Sugar Diagnostic (Freestyle Test) strip Start: 06-10-2019 End: 04-02-2021 Lancets (Freesty le Lancets) 28 gauge misc Start: 06-10-2019 End: 04-02-2021 Pen Needle, Diabetic (1st Tier Unifine Pentips Plus) 31 gauge x 3/16" needle Start: 06-01-2019 End: 08-06-2020 Pen Needle, Diabetic (1st Tier Unifine Pentips Plus) 31 gauge x 3/16" needle Start: 08-06-2020 End: 04-02-2021 Blood Sugar Diagnostic (Freestyle Test) strip Start: 04-02-2021 Lancets (Freesty le Lancets) 28 gauge [facility] Start: 04-02-2021 Pen Needle, Diabetic (1st Tier Unifine Pentips Plus) 31 gauge x 3/16" needle Start: 04-02-2021 Blood Sugar Diagnostic (Freestyle Test) strip Start: 06-10-2019 End: 04-02-2021 Lancets (Freesty le [facility]ets[facility] Start: 06-10-2019 End: 04-02-2021 Pen Needle, Diabetic (1st Tier Unifine Pentips Plus) 31 gauge x 3/16" needle Start: 06-01-2019 End: 08-06-2020 Pen Needle, Diabetic (1st Tier Unifine Pentips Plus) 31 gauge x 3/16" needle Start: 08-06-2020 End: 04-02-2021 Blood Sugar Diagnostic (Freestyle Test) strip Start: 04-02-2021 Lancets (Freesty le Lancets) 28 gauge misc Start: 04-02-2021 Pen Needle, Diabetic (1st Tier Unifine Pentips Plus) 31 gauge x 3/16" needle Start: 04-02-2021 Pen Needle, Diabetic (Comfort [employer] Pen [place]) 31 gauge x 5/16" needle Start: 10-28-2023 Blood Sugar Diagnostic (Freestyle Test) strip Start: 06-10-2019 End: 04-02-2021 Lancets (Freesty le Lancets) 28 gauge misc Start: 06-10-2019 End: 04-02-2021 Pen Needle, Diabetic (1st Tier Unifine Pentips Plus) 31 gauge x 3/16" needle Start: 06-01-2019 End: 08-06-2020 Pen Needle, Diabetic (1st Tier Unifine Pentips Plus) 31 gauge x 3/16" needle Start: 08-06-2020 End: 04-02-2021 Goals Date Patient Goal Desired Activity /State Functional Status Date Assessment Result Facility 06-20-2024 Functional status Chair [facility] Work Phone: 04-19-2022 Functional status Ambulates;Up ad andree [facility] Work Phone: Mental Status Date Assessment Result Facility 07-29-2024 Cognitive function Voice/Name [facility] Work Phone: 06-20-2024 Cognitive function Voice/Name [facility] Work Phone: 04-19-2022 Cognitive function Voice/Name [facility] Work Phone: 04-18-2022 Cognitive function Voice/Name [facility] Work Phone: 07-18-2021 Cognitive function Level Of Cons ciousness Awake;Alert;Appropriate [facility] Work Phone: Clinical Notes 06-11-2018 to 06-20-2024 Note Date & Type Note Facility 06-20-2024 [facility]-15-[facility]24 [facility] 05-17-2024 Evaluation note Diagnosis Onset Date Resolution Atherosclerosis of right lower extremity with ulceration acute May 17, 2024 12:40pm Acute hypoxemic respiratory failure acute June 18, 2024 4:45am Acute respiratory distress acute June 18, 2024 4:45am Bilateral pleural effusion acute June 18, 2024 4:45am Bronchitis, purulent, chronic acute June 18, 2024 4:45am CHF (congestive heart failure) acute June 18, 2024 4:45am Elevated troponin acute June 042024 4:45am Hyperglycemia acute June 18, 2024 4:45am LV dysfunction acute June 4:45am Overweight (BMI 25.0-29.9) acute June 18, 2024 4:45am Pulmonary edema acute June 4:45am S/P CABG x 4 acute June 18, 2024 4:45am Type 2 diabetes mellitus treated with insulin acute June 18, 2024 4:45am COPD exacerbation chronic June 042024 4:45am Aortic valve stenosis acute Jul 9:51am LV dysfunction acute July 12, 2024 9:51am Essential (primary) hypertension chronic July 12, 2024 9:51am Hyperlipidemia chronic July 12, 2024 9:51am Nicotine dependence chronic July 12, 2024 9:51am Stenosis of right carotid artery chronic July 12, 2024 9:51am H/O coronary artery bypass surgery 2007 resolved July 12, 2024 9:51am Atherosclerosis of right lower extremity with ulceration acute July 14, 2024 9:54am CHF (congestive heart failure) acute August 02, 2024 11:21am Type 2 diabetes mellitus treated with insulin acute August 02, 2024 11:21am Hyperlipidemia chronic July 11:21am Nicotine dependence chronic August 02, 2024 11:21am [facility] Work Phone: 1(932) 677-242611-20-2024 Evaluation note* Diagnosis Onset Date Resolution Status Admit Date Fissure in skin of right foot acute February 24, 2024 11:07am PAD (peripheral artery disease) acut e February 24, 2024 11:07am Essential (primary) hypertension chr onic February 24, 2024 12:58pm Insulin dependent diabetes mellitus chronic February 23, 2 024 12:58pm Nicotine dependence chronic Novem 2023 12:58pm Fissure in skin of left foot deleted February 24, 2024 12:58pm Fissure in skin of right foot acute March 22, 2024 10:47am PAD (peripheral artery disease) acut e March 22, 2024 10:47am Cardiac murmur acute March 072023 9:49am Essential (primary) hypertension chr onic April 01, 2024 9:49am Hyperlipidemia chronic March 072023 9:49am Nicotine dependence chronic Decem jon 2023 9:49am Stenosis of right carotid artery chr onic April 01, 2024 9:49am H/O coronary artery bypass surgery 2007 resolved April 01, 2 024 9:49am Atherosclerosis of right low er extremity with ulceration acute 2024 12:56pm Atherosclerosis of right low er extremity with ulceration acute y 2024 10:46am Fissure in skin of right foot acute May 03, 2024 10:46am Hypertriglyceridemia acute Caesar jagjit 2024 10:46am Type 2 diabetes mellitus acute May 03, 2024 10:46am 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 Work Phone: 1(369) 604-872309-26-2024 History of Present illness Narrative* Gab Culver, BROOKE.ANIMAL RIDES MANAGER - 12/31/2023 9:33 AM EDT Subjective HPI Nontoxic-appearing male presents urgent care chief plaint sinus pressure and cough. Duration of symptoms 8 days. Associated symptoms listed above. Most prominent symptom today is sinus pressure and cough. No OTC medications. No known sick contacts. Denies any fever body aches chills productive cough chest pain shortness of breath pleuritic pain hemoptysis nausea vomiting abdominal pain change in bowel or bladder habits. Past medical history prescription medication use and allergies reviewed. .Patient presents with: Cough: Chest congestion, runny nose x1 week PAST MEDICAL HISTORY Diagnosis Date Arthritis Asthma Carotid atherosclerosis Coronary artery disease Diabetes mellitus type 2 in obese GERD (gastroesophageal reflux disease) History of non-ST elevation myocardial infarction (NSTEMI) 06/11/2018 Hyperlipidemia Senior Safety Support Manager Dr. Herrera Espinosa Hypertension Other emphysema (HCC) Pancreatitis Stenosis of right carotid artery Tobacco use disorder PAST SURGICAL HISTORY Procedure Laterality Date CAROTID ENDARTERECTOMY Right 01/06/2014 CORONARY ARTERY BYPASS GRAFT 2007 LEFT HEART CATH,PERCUTANEOUS 06/11/2018 RPR 1ST INGUN HRNA AGE 5 YRS/> REDUCIBLE 01/20/2017 Hernia repair, inguinal left ALLERGIES Amoxicillin, Lindane, and Lodine [Etodolac] MEDICATIONS atenolol (TENORMIN) 50 mg [...] needles, DISPOSABLE, (PEN NEEDLE) 31 gauge x 5/16" ndle Use one needle per dose. 1 [...] 2 Puffs as instructed every 4 hours asneeded for Wheezing/Shortness of Breath. (Patient not taking: [...] (Patient not taking: Reported on 10/15/2017 ) FAMILY HISTORY Problem Relation Age of Onset Diabetes Mother Hypertension Father Diabetes Father Asthma Father Alcohol abuse Father Arthritis Father Heart disease Father Hyperlipidemia Father Stroke Father Lung Cancer Father None Sister Heart Attack Paternal Grandfather Diabetes Paternal Uncle Social History Tobacco Use Smoking status: Every Day Current packs/day: 2.00 Average packs/day: 2.0 packs/day for 31.0 years (62.0 ttl pk-yrs) Types: Cigarettes Smokeless tobacco: Never Tobacco comments: started at age 14 Vaping Use Vaping status: Never Used Substance Use Topics Alcohol use: No Drug use: No BP 126/75 Pulse 78 Temp 36.4 C (97.5 F) Resp 18 Wt 84.4 kg (186 lb 1.1 oz) SpO2 96% BMI25.95 kg/m Review of Systems Constitutional: Negative for chills, fever and malaise/fatigue. HENT: Positive for congestion and sinus pain. Negative for ear discharge, ear pain and sore throat. Eyes: Negative for blurred vision, pain, discharge and redness. Respiratory: Positive for cough. Negative for hemoptysis, sputum production, shortness of breath, wheezing and stridor. Cardiovascular: Negative for chest pain. Gastrointestinal: Negative for abdominal pain, diarrhea, nausea and vomiting. Musculoskeletal: Negative for myalgias. Skin: Negative for itching and rash. Neurological: Negative for dizziness and headaches. Objective Physical Exam Constitutional: General: He is not in acute distress. Appearance: He is not diaphoretic. HENT: Head: Normocephalic. Jaw: No trismus, tenderness, swelling or pain on movement. Right Ear: Tympanic membrane, ear canal and external ear normal. Left Ear: Tympanic membrane, ear canal and external ear normal. Nose: Congestion present. Mouth/Throat: Mouth: Mucous membranes are moist. Pharynx: Oropharynx is clear. Uvula midline. No pharyngeal swelling, oropharyngeal exudate, posterior oropharyngeal erythema or uvula swelling. Eyes: Conjunctiva/sclera: Conjunctivae normal. Pupils: Pupils are equal, round, and reactive to light. Cardiovascular: Rate and Rhythm: Normal rate and regular rhythm. Heart sounds: Normal heart sounds. Pulmonary: Effort: Pulmonary effort is normal. No tachypnea, accessory muscle usage or respiratory distress. Breath sounds: Normal breath sounds. No stridor. No wheezing, rhonchi or rales. Abdominal: General: There is no distension. Palpations: Abdomen is soft. Tenderness: There is no abdominal tenderness. There is no guarding or rebound. Musculoskeletal: Cervical back: Normal range of motion and neck supple. No edema, erythema, rigidity or tenderness. No pain with movement. Normal range of motion. Lymphadenopathy: Cervical: No cervical adenopathy. Skin: General: Skin is warm and dry. Neurological: Mental Status: He is alert and oriented to person, place, and time. ASSESSMENT/PLAN: 1. Sinobronchitis - ICD9: 473.9, 490, ICD10: J32.9, J40 Diagnosis sinobronchitis. Placed on cough suppressant and doxycycline. Patient was educated on supportive therapies. Patient [...] of care. This note was generated using LYCEEM software. It may contain errors in wording, punctuation, or spelling. Gab Culver APRN.TURNER documented in this encounterMet[facility] Discharge instructions Additional Instructions Your x-ray does not show any broken bones in your foot. Therefore you have a foot contusion which is bruised bones. This will take roughly 1 to 2 weeks to heal. Wear the Hemanth wrap for padding and compression and use the crutches as necessary to help with ambulation. If you have any further concerns please return [facility] the [facility] Work Phone: 1(891) 158-766211-01-2022 NoteHNO ID: [id number] Author: Yamilka Parekh MD Service: ? Author Type: Physician Type: Progress Notes Filed: 02/04/2022 7:54 PM Note Text: Jaylen Mejia 1960 REFERRING PHYSICIAN: Yamilka Parekh MD CHIEF COMPLAINT: Follow Up (Review CT scan for left groin pain) HPI: The patient is a 62 year old male presents with recurrent left groin hernia as confirmed by CT scan. He is s/p umbilical hernia repair and left inguinal (anterior) hernia repair with mesh in 2016. He admits to cigarettes use. However, patient states that it is not bothering him much at present. I have offered patient surgery, but he defers any surgery for now. PAST MEDICAL HISTORY Diagnosis Date Arthritis Asthma Carotid atherosclerosis Coronary artery disease Diabetes mellitus type 2 in obese (HCC) GERD (gastroesophageal reflux disease) History of non-ST elevation myocardial infarction (NSTEMI) 06/11/2018 Hyperlipidemia Senior Safety Support Manager Dr. Herrera Espinosa Hypertension Other emphysema (HCC) [...] needles, DISPOSABLE, (PEN NEEDLE) 31 gauge x 5/16" ndle Use one needle per dose. 1 [...] any blood vessels/nerv (more content not included)... [facility]11-01-2022 History of Present illness Narrative* Yamilka Parekh MD - 02/04/2022 9:05 AM EDT Jaylen Mejia 1960 REFERRING PHYSICIAN: Yamilka Parekh MD CHIEF COMPLAINT: Follow Up (Review CT scan for left groin pain) HPI: The patient is a 62 year old male presents with recurrent left groin hernia as confirmed by CTscan. He is s/p umbilical hernia repair and left inguinal (anterior) hernia repair with mesh in 2016. He admits to cigarettes use. However, patient states that it is not bothering him much at present. I have offered patient surgery, but he defers any surgery for now. PAST MEDICAL HISTORY Diagnosis Date Arthritis Asthma Carotid atherosclerosis Coronary artery disease Diabetes mellitus type 2 in obese (HCC) GERD (gastroesophageal reflux disease) History of non-ST elevation myocardial infarction (NSTEMI) 06/11/2018 Hyperlipidemia Senior Safety Support Manager Dr. Herrera Espinosa Hypertension Other emphysema (HCC) [...] needles, DISPOSABLE, (PEN NEEDLE) 31 gauge x 5/16" ndle Use one needle per dose. 1 [...] 2 Puffs as instructed every 4 hours asneeded for Wheezing/Shortness of Breath. (Patient not taking: [...] F), weight 87.2 kg (192 lb 3.2 oz),SpO2 98 %. Body mass index is 26.81 [...] injury to any blood vessels/nerves, injury to anybowel/bladder, injury to the spermatic cord, injury to [...] Decision Making Level: 2 - Straightforward Yamilka Parekh MD documented in this encounterMet[facility]10-25-[facility]22 NoteHNO ID: [id number] Author: Yamilka Parekh MD Service: ? Author Type: Physician Type: Progress Notes Filed: 01/29/2022 6:15 PM Note Text: Jaylen Mejia 1960 REFERRING PHYSICIAN: Self CHIEF COMPLAINT: Follow [...] non-ST elevation myocardial infarction (NSTEMI) 06/11/2018 Hyperlipidemia Senior Safety Support Manager Dr. Herrera Espinosa Hypertension Other emphysema (HCC) [...] needles, DISPOSABLE, (PEN NEEDLE) 31 gauge x 5/16" ndle Use one needle per dose. 1 [...] ?C (97.3 ?F), height 180.3 cm (5' 11"), weight 87.4 kg (192 lb 9.6 oz), [...] and completing appropriate m (more content not included)...[facility] History of Present illness Narrative* Yamilka Parekh MD - 01/28/2022 5:38 PM EDT Jaylen Mejia 1960 REFERRING PHYSICIAN: Self CHIEF COMPLAINT: Follow [...] non-ST elevation myocardial infarction (NSTEMI) 06/11/2018 Hyperlipidemia Senior Safety Support Manager Dr. Herrera Espinosa Hypertension Other emphysema (HCC) [...] needles, DISPOSABLE, (PEN NEEDLE) 31 gauge x 5/16" ndle Use one needle per dose. 1 [...] 2 Puffs as instructed every 4 hours asneeded for Wheezing/Shortness of Breath. (Patient not taking: [...] C (97.3 F), height 180.3 cm (5' 11"), weight 87.4 kg (192 lb 9.6 oz), [...] patient, and completing appropriate medical documentation. Yamilka Parekh MD documented in this encounterMet[facility]10-25-2022 NoteHNO ID: [id number] Author: RT Benji(Suman) Service: ? Author Type: Integrity Engineer Type: Progress Notes Filed: 01/28/2022 3:01 PM Note Text: Radiology Service Progress Note PATIENT NAME: Jaylen Mejia DATE OF SERVICE: January 28, 2022 TIME: [...] BY: RT Betsy(Suman) January 28, 2022 3:01 [facility]10-25-2022 History of Present illness Narrative* Hazel Bright RT(Suman) - 01/28/2022 10:00 AM EDT Radiology Service Progress Note PATIENT NAME: Jaylen Mejia DATE OF SERVICE: January 28, 2022 TIME: 3:01 PM PATIENT IDENTITY VERIFICATION COMPLETED USING TWO (2) IDENTIFIERS: Name and Date of confirmedby patient verbally. FALL SCREENING: Has the patient had 2 falls in the last year or 1 fall with injury or currently using an Ambulatory Assistive Device (Walker, Cane, Wheelchair, Crutches, etc.)? No PATIENT GENDER DATA: Male PATIENT RELEVANT IMPLANT DATA REVIEWED: Yes RADIOLOGY DEPARTMENT: CT; Exam(s) Completed: Pelvis PERIPHERAL IV DATA: Not applicable SIGNED BY: RT Betsy(Suman) January 28, 2022 3:01 PM documented in this encounterMet[facility]10-[facility]-2022 NoteHNO ID: [id number] Author: Yamilka Parekh MD Service: ? Author Type: Physician Type: Progress Notes Filed: 01/08/2022 12:57 PM Note Text: Jaylenenrique Mejia 1960 REFERRING PHYSICIAN: Self CHIEF COMPLAINT: Consult [...] non-ST elevation myocardial infarction (NSTEMI) 06/11/2018 Hyperlipidemia Senior Safety Support Manager Dr. Herrera Espinosa Hypertension Other emphysema (HCC) [...] needles, DISPOSABLE, (PEN NEEDLE) 31 gauge x 5/16" ndle Use one needle per dose. 1 [...] REVIEW OF SYSTEMS: General: (more content not included)...[facility] History of Present illness Narrative* Yamilka Parekh MD - 01/06/2022 7:04 PM EDT Jaylen Mejia 1960 REFERRING PHYSICIAN: Self CHIEF COMPLAINT: Consult [...] non-ST elevation myocardial infarction (NSTEMI) 06/11/2018 Hyperlipidemia Senior Safety Support Manager Dr. Herrera Espinosa Hypertension Other emphysema (HCC) [...] needles, DISPOSABLE, (PEN NEEDLE) 31 gauge x 5/16" ndle Use one needle per dose. 1 [...] For CT PELVIS WO IVCON order Administer, AsDirected One Time Only, via Oral, Rectal, both [...] 2 Puffs as instructed every 4 hours asneeded for Wheezing/Shortness of Breath. (Patient not taking: [...] entered by the nurse and reviewed by nj Nursing Notes: Allison Haines RN 01/06/2022 9:32 [...] back pain/injury, denies back problems, denies sciatica, deniesknee/foot trouble, NOTES arthritis, or denies gout. When was patient's last Mammogram screening? N/A Last Colonoscopy: Unknown Allison Haines RN PHYSICAL EXAMINATION: General: The patient is 61 year old male, well nourished, well hydrated in no acute distress. The patient is oriented to time, place, and person. VITALS: Blood pressure 160/77, pulse 84, temperature 36.5 C (97.7 F), height 180.3 cm (5' "), weight 88.3 kg (194 lb 9.6 oz), [...] and protuberant. Rectus diastasis present . Difficult todetermine if any masses or organomegaly due to body habitus. Genitalia - normal male phallus, testes in normal anatomical position and no masses noted, possibleleft inguinal hernia versus fascial weakness, no right [...] of any pertinent laboratory studies/radiological imaging/medical records, [id number] care, obtaining oral medical history from the patient in this encounter, performing a medically appropriate examination, counseling and educating the patient/family/caregiver, and ordering and/or scheduling of medications/tests/procedures, and completing appropriate medical documentation. Yamilka Parekh MD documented in this encounterMet[facility]10-[facility] Nurse Note* Allison Haines RN - 01/06/2022 9:31 AM EDT REVIEW OF SYSTEMS: General: The patient denies [...] back pain/injury, denies back problems, denies sciatica, deniesknee/foot trouble, NOTES arthritis, or denies gout. When was patient's last Mammogram screening? N/A Last Colonoscopy: Unknown Allison Haines RN [facility] NoteHNO ID: [id number] Author: Gab Culver APRN.ANIMAL RIDES MANAGER Service: ? Author Type: Nurse Practitioner [...] type 2 in obese (HCC) - Hyperlipidemia Senior Safety Support Manager Dr. Herrera Espinosa - Hypertension - Pancreatitis [...] needles, DISPOSABLE, (PEN NEEDLE) 31 gauge x 5/16" ndle Use one needle per dose. 1 [...] He is not diaphoretic (more content not included)...[facility]04-14-[facility] Instructions* Patient Instructions* Gab Culver APRN.ANIMAL RIDES MANAGER - 07/18/2021 1:15 PM EDT RESPIRATORY INFECTION [...] antibiotics. They are spread by coughs, sneezes, anddirect contact, especially [id number]. A respiratory tract infection usually clears up [...] as water, fruit juice, tea, clear soups, andcarbonated beverages. CONTACT YOUR DOCTOR IF : 1. [...] 102 F (39 C). documented in this [facility] History of Present illness Narrative* Gab Culver APRN.CNP - 07/18/2021 1:02 PM EDT Subjective HPI Nontoxic-appearing male presents urgent care [...] mellitus type 2 in obese (HCC) Hyperlipidemia Senior Safety Support Manager Dr. Herrera Espinosa Hypertension Pancreatitis Tobacco use [...] needles, DISPOSABLE, (PEN NEEDLE) 31 gauge x 5/16" ndle Use one needle per dose. 1 [...] 2 Puffs as instructed every 4 hours asneeded for Wheezing/Shortness of Breath. predniSONE (DELTASONE) 20 [...] of care. This note was generated using LYCEEM software. It may contain errors in wording,punctuation, or spelling. Gba Culver APRN.TURNER documented in this encounter[facility]12-27-[facility]21 NoteHNO ID: [id number] Author: Maxx Owen APRN.TURNER Service: ? 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 Herrera Espinosa - Hypertension - Pancreatitis [...] needles, DISPOSABLE, (PEN NEEDLE) 31 gauge x 5/16" ndle Use one needle per dose. 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 Essential (primary) hypertension chronic History of non-ST elevation myocardial infarction (NSTEMI) June 11, 2018 chronic Insulin dependent diabetes mellitus chronic Nicotine dependence chronic Essential (primary) hypertension chronic Hyperlipidemia chronic Nicotine dependence chronic Stenosis of right carotid artery chronic H/O coronary artery bypass surgery 2006 resolved Non-STEMI (non-ST elevated myocardial infarction) acute 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 Work Phone: Evaluation note* Diagnosis Onset Date Resolution Status Essential (primary) hypertension chronic Insulin dependent diabetes mellitus chronic Stenosis of right carotid artery chronic H/O coronary artery bypass surgery [address] [facility] Work Phone: Evaluation note* Diagnosis Onset Date Resolution Status Essential (primary) hypertension chronic Insulin dependent diabetes mellitus chronic Stenosis of right carotid artery chronic H/O coronary artery bypass surgery 2006 resolved Essential (primary) hypertension chronic Insulin dependent diabetes mellitus chronic Stenosis of right carotid artery chronic [facility] Work Phone: Evaluation note* Diagnosis Left groin pain- Primary Abdominal pain, left lower quadrant [facility] Diagnosis Left groin pain- Primary Abdominal pain, left lower quadrant [facility]* Diagnosis Recurrent left inguinal hernia- Primary Inguinal hernia without mention of obstruction or gangrene, recurrent unilateral or unspecified [facility] this [facility]* Diagnosis Onset Date Resolution Status Essential (primary) hypertension chronic Insulin dependent diabetes mellitus chronic Stenosis of right carotid artery chronic [facility] Work Phone: Evaluation note* Diagnosis Onset Date Resolution Status Essential (primary) hypertension chronic Insulin dependent diabetes mellitus chronic Stenosis of right carotid artery chronic [id number] acute Nicotine dependence [facility] Work Phone: Evaluation note* Diagnosis Onset Date Resolution Status Essential (primary) hypertension chronic Insulin dependent diabetes mellitus chronic Stenosis of right carotid artery chronic [id number] acute Nicotine dependence chronic Essential (primary) hypertension chronic Hyperlipidemia chronic Insulin dependent diabetes mellitus chronic H/O coronary artery bypass surgery 2007 resolved NSTEMI, initial episode of care acute Insulin dependent diabetes mellitus chronic Nicotine dependence chronic [facility] Work Phone: Evaluation note* Diagnosis Onset Date Resolution Status [id number] acute Nicotine dependence chronic Essential (primary) hypertension chronic Hyperlipidemia chronic Insulin dependent diabetes mellitus chronic H/O coronary artery bypass surgery 2006 resolved Essential (primary) hypertension chronic Hyperlipidemia chronic Insulin dependent diabetes mellitus chronic Nicotine dependence chronic Stenosis of right carotid artery chronic H/O coronary artery bypass surgery 2007 resolved NSTEMI, initial episode of care resolved Non-STEMI (non-ST elevated myocardial infarction) acute 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 Essential (primary) hypertension chronic Insulin dependent diabetes mellitus chronic Nicotine dependence chronic [id number] acute Nicotine dependence [facility] Work Phone: Evaluation note* Diagnosis Sinobronchitis- Primary Unspecified sinusitis (chronic) documented in this encounter [facility] for referral (narrative)No reason for referral information availableWWayne [facility] Work Phone: Advance Directives No Advanced Directives Records FoundDocuments on File Type Date Recorded Patient Crab Catcher Expl anation Advance Directive(s) 01/20/2017 7:47 AM Advance Directive(s) 09/05/2015 4:07 PM Advance Directive Response Recorded Date/ Time Advance Directives No January 13, 2020 3:59pm Living Will No July 18, 2021 9:19pm Power of Counter Weigher No July 18 9:19pm Advance Directive Response Recorded Date/ Time Advance Directives No January 13, 2020 3:59pm Living Will No December 08 11:25pm Power of Counter Weigher No December 08, 2021 11:25pm Advance Directive Response Recorded Date/ Time Advance Directives No January 13, 2020 2:59pm Living Will No March 01 9:51pm Power of Counter Weigher No March 01, 2022 9:51pm Advance Directive Response Recorded Date/ Time Advance Directives No January 13, 2020 2:59pm Living Will No April 18 1:40am Power of Counter Weigher No April 18, 2022 1:40am Advance Directive Response Recorded Date/ Time Advance Directives No January 13, 2020 2:59pm Living Will No May 21, 023 1:36am Power of Counter Weigher No May 21, 2022 1:36am Advance Directive Response Recorded Date/ Time Advance Directives No January 13, 2020 2:59pm Living Will No April 25 3:42pm Power of Counter Weigher No April 25, 2023 3:42pm Advance Directive Response Recorded Date/ Time Advance Directives No January 13, 2020 2:59pm Living Will No May 24 024 12:27am Power of Counter Weigher No May 24, 2023 12:27am Advance Directive Response Recorded Date/ Time Living Will No August 23, 2023 6 :30pm Do you have a Healthcare Power of Counter Weigher? No August 23, 2023 6:30pm Advance Directives on File No William 2024 8:15am Living Will No April 20 8:15am Do you have a Healthcare Power of Counter Weigher? No April 20, 2024 8:15am Advance Directives No April 20, 2024 8:15am Living Will No May 21 025 8:31pm Do you have a Healthcare Power of Counter Weigher? No May 21, 2024 8:31pm Advance Directive Response Recorded Date/ Time Living Will No August 23, 2023 6 :30pm Do you have a Healthcare Power of Counter Weigher? No August 23, 2023 6:30pm Living Will No May 21 2 025 8:31pm Do you have a Healthcare Power of Counter Weigher? No May 21, 2024 8:31pm Living Will No June 18, 2024 6:24am Do you have a Healthcare Power of Counter Weigher? No June 18, 2024 6:24am Do you have a Healthcare Power of Counter Weigher? No July 29, 2024 8:08pm Advance Directives No April 20, 2024 8:15am Chief Complaint and Reason for Visit Chief Complaint 3 M FU TONEY Reason for Visit COPD (chronic obstru ctive pulmonary disease) with emphysema Hyperlipidemia Insulin dependent diabetes mellitus H/O coronary artery bypass surgery Chief Complaint 3 M FU cough Reason for Visit Essential (primary) hypertension Insulin dependent diabetes mellitus Stenosis of right carotid artery H/O coronary artery bypass surgery Chief Complaint 3 M FU cough 3 M FU Reason for Visit Essential (primary) hypertension Insulin dependent diabetes mellitus Stenosis of right carotid artery H/O coronary artery bypass surgery Essential (primary) hypertension Insulin dependent diabetes mellitus Stenosis of right carotid artery Chief Complaint cough 3 M FU Amb Documentation LOWER Reason for Visit Essential (primary) hypertension Insulin dependent diabetes mellitus Stenosis of right carotid artery Chief Complaint cough 3 M FU Amb Documentation LOWER lung cancer screening SCREENING Reason for Visit Essential (primary) hypertension Insulin dependent diabetes mellitus Stenosis of right carotid artery [id number] Nicotine dependence Chief Complaint 3 M FU Amb Documentation LOWER lung cancer screening SCREENING 3 M FU NSTEMI Reason for Visit Essential (primary) hypertension Insulin dependent diabetes mellitus Stenosis of right carotid artery [id number] Nicotine dependence Essential (primary) hypertension Hyperlipidemia Insulin dependent diabetes mellitus H/O coronary artery bypass surgery NSTEMI, initial episode of care Insulin dependent diabetes mellitus Nicotine dependence Chief Complaint LOWER lung cancer screening SCREENING 3 M FU NSTEMI NSTEMI NSTEMI NSTEMI [facility] FU- HEART ATTACK s/p [facility] ED NSTEMI 1-14 lower extrem Reason for Visit [id number] Nicotine dependence Essential (primary) hypertension Hyperlipidemia Insulin dependent diabetes mellitus H/O coronary artery bypass surgery Essential (primary) hypertension Hyperlipidemia Insulin dependent diabetes mellitus Nicotine dependence Stenosis of right carotid artery H/O coronary artery bypass surgery NSTEMI, initial episode of care Non-STEMI (non-ST elevated myocardial infarction) COPD (chronic obstructive pulmonary disease) with emphysema Essential (primary) hypertension Hyperlipidemia Insulin dependent diabetes mellitus Nicotine dependence H/O coronary artery bypass surgery NSTEMI, initial episode of care Essential (primary) hypertension Hyperlipidemia Nicotine dependence Stenosis of right carotid artery H/O coronary artery bypass surgery Chief Complaint LOWER lung cancer screening SCREENING 3 M FU NSTEMI NSTEMI NSTEMI NSTEMI [facility] FU- HEART ATTACK s/p [facility] ED NSTEMI 1-14 lower extrem EORDER Reason for Visit [id number] Nicotine dependence Essential (primary) hypertension Hyperlipidemia Insulin dependent diabetes mellitus H/O coronary artery bypass surgery Essential (primary) hypertension Hyperlipidemia Insulin dependent diabetes mellitus Nicotine dependence Stenosis of right carotid artery H/O coronary artery bypass surgery NSTEMI, initial episode of care Non-STEMI (non-ST elevated myocardial infarction) COPD (chronic obstructive pulmonary disease) with emphysema Essential (primary) hypertension Hyperlipidemia Insulin dependent diabetes mellitus Nicotine dependence H/O coronary artery bypass surgery NSTEMI, initial episode of care Essential (primary) hypertension Hyperlipidemia Nicotine dependence Stenosis of right carotid artery H/O coronary artery bypass surgery Chief Complaint 3 M FU 6 M FU 3 m fu Reason for Visit COPD (chronic obstru ctive pulmonary disease) with emphysema Essential (primary) hypertension History of non-ST elevation myocardial infarction (NSTEMI) Insulin dependent diabetes mellitus Nicotine dependence Essential (primary) hypertension Hyperlipidemia Nicotine dependence Stenosis of right carotid artery H/O coronary artery bypass surgery Non-STEMI (non-ST elevated myocardial infarction) COPD (chronic obstructive pulmonary disease) with emphysema Essential (primary) hypertension Insulin dependent diabetes mellitus Nicotine dependence Chief Complaint 3 M FU 6 M FU 3 m fu fall Reason for Visit COPD (chronic obstru ctive pulmonary disease) with emphysema Essential (primary) hypertension History of non-ST elevation myocardial infarction (NSTEMI) Insulin dependent diabetes mellitus Nicotine dependence Essential (primary) hypertension Hyperlipidemia Nicotine dependence Stenosis of right carotid artery H/O coronary artery bypass surgery Non-STEMI (non-ST elevated myocardial infarction) COPD (chronic obstructive pulmonary disease) with emphysema Essential (primary) hypertension Insulin dependent diabetes mellitus Nicotine dependence Chief Complaint 6 M FU 3 m fu fall wound check Reason for Visit Essential (primary) hypertension Hyperlipidemia Nicotine dependence Stenosis of right carotid artery H/O coronary artery bypass surgery Non-STEMI (non-ST elevated myocardial infarction) COPD (chronic obstructive pulmonary disease) with emphysema Essential (primary) hypertension Insulin dependent diabetes mellitus Nicotine dependence Chief Complaint 3 m fu fall wound check Lung Cancer Screening SCREEN Reason for Visit Non-STEMI (non-ST el evated myocardial infarction) COPD (chronic obstructive pulmonary disease) with emphysema Essential (primary) hypertension Insulin dependent diabetes mellitus Nicotine dependence [id number] Nicotine dependence Chief Complaint Admit Date 3-4 M FU February 24, 2024 11:07am 3 M FU February 24, 2024 12:58pm PVD, OPEN WOUND March 09, 2024 9 :11am 4-5 WK FU March 22, 2024 10:47am Peripheral vascular disease, unspecified March 29, 2024 1:23pm 6 M FU April 01, 2024 9:49am Discuss CTA results April 08, 2024 12 :56pm Atherosclerosis of [place] arteries [place] April 20, 2024 6:47am Atherosclerosis of [place] arteries of [place] April 20, 2024 12:55pm 2 M FU May 03, 2024 1 0:46am MURMUR May 09, 2024 1 2:51pm POST RLE ANGIOGRAM 2-4 WK FU May 172024 12:40pm COUGH May 21, 2024 5:25pm AFTERCARE June 13, 2024 1:4 2pm ABN ECHO June 15, 2024 12: 21pm Reason for Visit Admit Date Fissure in skin of right foot February 052023 11:07am PAD (peripheral artery disease) February 24, 2024 11:07am Essential (primary) hypertension [facility] 2023 12:58pm Insulin dependent diabetes mellitus [facility] 2023 12:58pm Nicotine dependence February 24, 2024 12:58pm Fissure in skin of left foot February 232023 12:58pm Fissure in skin of right foot March 062023 10:47am PAD (peripheral artery disease) March 22, 2024 10:47am Cardiac murmur April 01, 2024 9:49am Essential (primary) hypertension [facility] 2023 9:49am Hyperlipidemia April 01, 2024 9:49am Nicotine dependence April 01, 2024 9:49am Stenosis of right carotid artery [facility] 2023 9:49am H/O coronary artery bypass surgery Dece jon 2023 9:49am Atherosclerosis of right lower extremity with ulceration April 08, 2024 12:56pm Atherosclerosis of right lower extremity with ulceration May 03, 2024 10:46am Fissure in skin of right foot May 032024 10:46am Hypertriglyceridemia May 03, 2024 10:46am Type 2 diabetes mellitus May 03, 2 025 10:46am COPD (chronic obstructive pu lmonary disease) with emphysema May 03, 2024 10:46am Essential (primary) hypertension May 03, 2024 10:46am Atherosclerosis of right lower extremity with ulceration May 17, 2024 12:40pm Chief Complaint Admit Date POST RLE ANGIOGRAM 2-4 WK FU May 172024 12:40pm COUGH May 21, 2024 5:25pm AFTERCARE June 13, 2024 1:4 2pm ABN ECHO June 15, 2024 12: 21pm NEW ONSET AE CHF OF UNCERTAIN TYPE AE CO PD June 18, 2024 4:45am NEW ONSET AE CHF OF UNCERTAIN TYPE AE CO PD June 18, 2024 5:20am NEW ONSET AE CHF OF UNCERTAIN TYPE AE CO PD June 19, 2024 9:11am NEW ONSET AE CHF OF UNCERTAIN TYPE AE CO PD June 19, 2024 1:07pm NEW ONSET AE CHF OF UNCERTAIN TYPE AE CO PD June 20, 2024 9:15am NEW ONSET AE CHF OF UNCERTAIN TYPE AE CO PD June 20, 2024 10:58am S/P [facility] 06/21July 12, 2024 9:51 am Discuss Results July 14, 2024 9:5 4am chest pain July 29, 2024 7:5 8pm 3 M FU August 02, 2024 11: 21am CAROTID ARTERY DISEASE September 08, 2024 10 :08am Reason for Visit Admit Date Atherosclerosis of right lower extremity with ulceration May 17, 2024 12:40pm Acute hypoxemic respiratory failure [facility] 2024 4:45am Acute respiratory distress June 18, 2 025 4:45am Bilateral pleural effusion June 18, 2 025 4:45am Bronchitis, purulent, chronic June 4:45am CHF (congestive heart failure) June 4:45am Elevated troponin June 18, 2024 4:4 5am Hyperglycemia June 18, 2024 4:4 5am LV dysfunction June 18, 2024 4:4 5am Overweight (BMI 25.0-29.9) June 18, 2 025 4:45am Pulmonary edema June 18, 2024 4:4 5am S/P CABG x 4 June 18, 2024 4:4 5am Type 2 diabetes mellitus treated with in sulin June 18, 2024 4:45am COPD exacerbation June 18, 2024 4:4 5am Aortic valve stenosis July 12, 2024 9: 51am LV dysfunction July 12, 2024 9:51 am Essential (primary) hypertension July 122024 9:51am Hyperlipidemia July 12, 2024 9:51 am Nicotine dependence July 12, 2024 9:51 am Stenosis of right carotid artery July 122024 9:51am H/O coronary artery bypass surgery July 12, 2024 9:51am Atherosclerosis of right lower extremity with ulceration July 14, 2024 9:54am CHF (congestive heart failure) July 11:21am Type 2 diabetes mellitus treated with in sulin August 02, 2024 11:21am Hyperlipidemia August 02, 2024 11: 21am Nicotine dependence August 02, 2024 11: 21am Family History No Family History Records Found Relationship Condition Age at Onset Recorded Date/T matt father Asthma Unknown Alcoholism Unknown Arthritis Unknown Cardiac disease Unknown Hypertension Unknown High blood cholesterol Unknown Cerebrovascular accident (CVA) Unknown Malignant neoplasm of lung Unknown grandfather Myocardial infarction Unknown Reason for Referral Specialty Diagnoses / Procedures Referred By David rausch Referred To Contact CT IMAGING Diagnoses Left groin pain Procedures CT PELVIS WO IVCON CT PELVIS W/O CONTRAST MATERIAL Yamilka Parekh MD [address] [place] [address] Ct Imaging Referral ID Status Reason Start Date Expiration Date Visits Requested Visits Authorized [id number] Additional Clinical Info Needed Auto-Generat ed Referral 01/06/2022 02/05/2023 1 1 Specialty Diagnoses / Procedures Referred By David rausch Referred To Contact CT IMAGING Diagnoses Left groin pain Procedures CT PELVIS WO IVCON CT PELVIS W/O CONTRAST MATERIAL Yamilka Parekh MD [address] [place] [address] Ct Imaging [id number] Referral ID Status Reason Start Date Expiration Date V isits Requested Visits Authorized [id number] Closed Auto-Generate d Referral 01/06/2022 03/16/2022 2 2 Summary Purpose Additional Source Comments Source Comments (unrecognize d section and content) In the event this informatio n is protected by the Federal Confidentiality of Alcohol and Drug Abuse Patient Records regulations: The Federal rules restrict any use of the information to criminally investigate or prosecute any alcohol or drug abuse patient.[facility] the event this information is protected by the Federal Confidentiality of Alcohol and Drug Abuse Patient Records regulations: The Federal rules restrict any use of the information to criminally investigate or prosecute any alcohol or drug abuse patient.[facility] Center[facility] the event this information is protected by the Federal Confidentiality of Alcohol and Drug Abuse Patient Records regulations: The Federal rules restrict any use of the information to criminally investigate or prosecute any alcohol or drug abuse patient.[facility] Center[facility] the event this information is protected by the Federal Confidentiality of Alcohol and Drug Abuse Patient Records regulations: The Federal rules restrict any use of the information to criminally investigate or prosecute any alcohol or drug abuse patient.[facility] Center[facility] the event this information is protected by the Federal Confidentiality of Alcohol and Drug Abuse Patient Records regulations: The Federal rules restrict any use of the information to criminally investigate or prosecute any alcohol or drug abuse patient.[facility] CenterIn the event this information is protected by the Federal Confidentiality of Alcohol and Drug Abuse Patient Records regulations: The Federal rules restrict any use of the information to criminally investigate or prosecute any alcohol or drug abuse patient.[facility] CenterIn the event this information is protected by the Federal Confidentiality of Alcohol and Drug Abuse Patient Records regulations: The Federal rules restrict any use of the information to criminally investigate or prosecute any alcohol or drug abuse patient.[facility] Reason for Visit (unrecogniz ed section and content) Reason Comments Headache x1 day Sore Throat pain rated 5 x1 day Cough Pt reported intermit tent SOB, chest pain Reason Comments Consult Possible left inguin al hernia Reason Comments Follow Up Hernia Reason Comments Follow Up Review CT scan for l eft groin pain Reason Comments Radiology CT Specialty Diagnoses / Procedures Referred By David t Referred To Contact CT IMAGING Diagnoses Left groin pain Procedures CT PELVIS WO IVCON CT PELVIS W/O CONTRAST MATERIAL Yamilka Parekh MD [address] [place] [address] [place] [address] Referral ID Status Reason Start Date Expiration Date V isits Requested Visits Authorized [id number] Closed Auto-Generate d Referral 01/06/2022 03/16/2022 2 2 Reason Comments Cough Chest congestion, ru nny nose x1 week Goals (unrecognized section and content) Goals may be documented in a n alternate sectionGoals may be documented in an alternate sectionGoals may be documented in an alternate sectionGoals may be documented in an alternate sectionGoals may be documented in an alternate sectionGoals may be documented in an alternate sectionGoals may be documented in an alternate sectionGoals may be documented in an alternate sectionGoals may be documented in an alternate sectionGoals may be documented in an alternate sectionGoals may be documented in an alternate sectionGoals may be documented in an alternate sectionGoals may be documented in an alternate section Care Teams (unrecognized sec tion and content) Marine Engineer Cpvec Relationship Specialty Start Date End Date Xiang Rogers DO [address] [place] [address] PCP - General Family Medicine 01/03/22 Marine Engineer Cpvec Relationship Specialty Start Date End Date Xiang Rogers DO [address] [place] [address] PCP - General Family Medicine 01/03/22 Marine Engineer Cpvec Relationship Specialty Start Date End Date Xiang Rogers DO [address] [place] [address] PCP - General Family Medicine 01/03/22 Team Status: Active Member Role Status Dates Dr. Xiang Rogers DO Family Provider Active Dr. Xiang Rogers , DO Primary Care Provider Active Team Status: Inactive Member Role Status Dates Dr. iXang Rogers DO Primary Care Pr ovider, Attending Provider, Referring Provider Active Team Status: Inactive Member Role Status Dates Dr. Xiang Rogers DO Primary Care Provider Active Kimberli Mora FOREST FIRE EQUIPMENT OPERATOR, FOREST FIRE EQUIPMENT OPERATOR-C Attending Provider, Referring Provider Active Team Status: Active Member Role Status Dates Dr. Xiang Rogers DO Primary Care Provider Active Dr. Maribell Moura , Emergency Provider Active Dr. Flori Johnson MD Admit Provider, Other Provider Active Dr. Merced Guerrier MD Other Provider Active Dr. Steve Fields MD Other Provider Active Dr. Calos Quinn MD Attending Provider Active Team Status: Active Member Role Status Dates Dr. Xiang Rogers , DO Primary Care Provider Active Dr. Maribell Moura , DO Emergency Provider Active Dr. Flori Johnson MD Admit Provider, Other Provider Active Dr. Merced Guerrier MD Other Provider Active Dr. Steve Fields MD Attending Provider, Other Provid er Active Team Status: Active Member Role Status Dates Dr. Xiang Rogers , DO Primary Care Provider Active Dr. Calos Quinn MD Attending Provider Active Team Status: Inactive Member Role Status Dates Dr. Xiang Rogesr , DO Primary Care Provider, Referr ing Provider Active Dean Pena FOREST FIRE EQUIPMENT OPERATOR, FOREST FIRE EQUIPMENT OPERATOR-C Attending Provider Active Team Status: Inactive Member Role Status Dates Dr. Xiang Rogers , DO Primary Care Provider Active Dr. Chaya Knight MD Attending Provider, Emergency Provider Active Team Status: Inactive Member Role Status Dates Dr. Xiang Rogers DO Primary Care Provider Active Dr. Maribell Moura , DO Emergency Provider Active Dr. Flori Johnson MD Admit Provider, Other Provider Active Dr. Merced Guerrier MD Other Provider Active Dr. Steve Fields MD Attending Provider Active Team Status: Inactive Member Role Status Dates Dr. Xiang Rogers , DO Primary Care Provider Active Dr. Bronson Tolentino , DO Emergency Provider Active Team Status: Inactive Member Role Status Dates Dr. Xiang Rogers , DO Primary Care Provider Active Dr. Bronson Tolentino , DO Attending Provider, Emergency Pr ovider Active Team Status: Inactive Member Role Status Dates Dr. Xiang Rogers , DO Primary Care Provider Active Dean Pena FOREST FIRE EQUIPMENT OPERATOR, FOREST FIRE EQUIPMENT OPERATOR-C Attending Provider, Referring Pro vider Active Marine Engineer Cpvec Relationship Specialty Start Date End Date Xiang Rogers DO [address] [place] [address] PCP - General Family Medicine 01/03/22 Marine Engineer Cpvec Relationship Specialty Start Date End Date Xiang Rogers DO [address] [place] [address] PCP - General Family Medicine 01/03/22 Team Status: Inactive Member Role Status Dates Dr. Xiang Rogers DO Primary Care Provider Active Dr. Chaya Knight MD Emergency Provider Active Team Status: Inactive Member Role Status Dates Dr. Xiang Rogers DO Primary Care Provider Active Dr. Saúl Aguilar DO Emergency Provider Active Team Status: Inactive Member Role Status Dates Dr. Xiang Rogers DO Primary Care Provider, Referr ing Provider Active Kimberli Mora FOREST FIRE EQUIPMENT OPERATOR, FOREST FIRE EQUIPMENT OPERATOR-C Attending Provider Active Team Status: Inactive Member Role Status Dates Dr. Xiang Rogers DO Primary Care Provider Active Dr. Saúl Aguilar DO Attending Provider, Emergency P rotanishader Active Marine Engineer Cpvec Relationship Specialty Start Date End Date Xiang Rogers DO [address] [place] [address] PCP - General Family Medicine 01/03/22 Team Status: Active Member Role Status Dates Dr. Xiang Rogers DO Primary Care Provider Active Team Status: Inactive Member Role Status Dates Dr. Xiang Rogers DO Primary Care Provider Active Start: February 24, 2024 End: February 24, 2024 Dr. Xiang Rogers DO Referring Provider Active Start: February 24, 2024 End: February 24, 2024 NILSON Heck Attending Provider Active Star t: February 24, 2024 End: February 24, 2024 Team Status: Inactive Member Role Status Dates Dr. Xiang Rogers DO Primary Care Provider Active Start: February 24, 2024 End: February 24, 2024 Dr. Xiang Rogers DO Attending Provider Active Start: February 24, 2024 End: February 24, 2024 Dr. Xiang Rogers DO Referring Provider Active Start: February 24, 2024 End: February 24, 2024 Team Status: Inactive Member Role Status Dates Dr. Xiang Rogers DO Primary Care Provider Active Start: March 09, 2024 End: March 09, 2024 Dr. Jose Small DPM Attending Provider Active Start: March 09, 2024 End: March 09, 2024 Dr. Jose Small DPM Referring Provider Active Start: March 09, 2024 End: March 09, 2024 Team Status: Active Member Role Status Dates Dr. Xiang Rogers DO Primary Care Provider Active Start: March 09, 2024 Dr. Saúl Flowers MD Attending Provider Active S tart: March 09, 2024 Dr. Jose Small DPM Referring Provider Active Start: March 09, 2024 Team Status: Inactive Member Role Status Dates Dr. Xiang Rogers DO Primary Care Provider Active Start: March 22, 2024 End: March 22, 2024 Dr. Xiang Rogers DO Referring Provider Active Start: March 22, 2024 End: March 22, 2024 NILSON Heck Attending Provider Active Star t: March 22, 2024 End: March 22, 2024 Team Status: Inactive Member Role Status Dates Dr. Xiang Rogers DO Primary Care Provider Active Start: March 29, 2024 End: March 29, 2024 NILSON Heck Attending Provider Active Star t: March 29, 2024 End: March 29, 2024 NILSON Heck Referring Provider Active Star t: March 29, 2024 End: March 29, 2024 Team Status: Inactive Member Role Status Dates Dr. Xiang Rogers DO Primary Care Provider Active Start: April 01, 2024 End: April 01, 2024 Dr. Xiang Rogers DO Referring Provider Active Start: April 01, 2024 End: April 01, 2024 Magaly DEVINE PA Attending Provider Active Start: April 01, 2024 End: April 01, 2024 Team Status: Inactive Member Role Status Dates Dr. Xiang Rogers DO Primary Care Provider Active Start: April 08, 2024 End: April 08, 2024 Dr. Xiang Rogers DO Referring Provider Active Start: April 08, 2024 End: April 08, 2024 NILSON Heck Attending Provider Active Star t: April 08, 2024 End: April 08, 2024 Team Status: Inactive Member Role Status Dates Dr. Xiang Rogers DO Primary Care Provider Active Start: April 20, 2024 End: April 20, 2024 Dr. Saúl Flowers MD Attending Provider Active S tart: April 20, 2024 End: April 20, 2024 Dr. Saúl Flowers MD Referring Provider Active S tart: April 20, 2024 End: April 20, 2024 Team Status: Active Member Role Status Dates Dr. Xiang Rogers DO Primary Care Provider Active Start: April 20, 2024 Dr. Saúl Flowers MD Attending Provider Active S tart: April 20, 2024 Dr. Saúl Flowers MD Referring Provider Active S tart: April 20, 2024 Dr. Saúl Flowers MD Other Provider Active Start : April 20, 2024 Team Status: Inactive Member Role Status Dates Dr. Xiang Rogers DO Primary Care Provider Active Start: May 03, 2024 End: May 03, 2024 Dr. Xiang Rogers DO Attending Provider Active Start: May 03, 2024 End: May 03, 2024 Dr. Xiang Rogers DO Referring Provider Active Start: May 03, 2024 End: May 03, 2024 Team Status: Inactive Member Role Status Dates Dr. Xiang Rogers DO Primary Care Provider Active Start: May 09, 2024 End: May 09, 2024 Magaly DEVINE PA Attending Provider Active Start: May 09, 2024 End: May 09, 2024 Magaly DEVINE PA Referring Provider Active Start: May 09, 2024 End: May 09, 2024 Team Status: Active Member Role Status Dates Dr. Xiang Rogers DO Primary Care Provider Active Start: May 09, 2024 Dr. Calos Quinn MD Attending Provider Active S tart: May 09, 2024 Team Status: Inactive Member Role Status Dates Dr. Xiang Rogers DO Primary Care Provider Active Start: May 17, 2024 End: May 17, 2024 Dr. Xiang Rogers DO Referring Provider Active Start: May 17, 2024 End: May 17, 2024 NILSON Heck Attending Provider Active Star t: May 17, 2024 End: May 17, 2024 Team Status: Inactive Member Role Status Dates Dr. Xiang Rogers DO Primary Care Provider Active Start: May 21, 2024 End: May 21, 2024 Dr. Saúl Aguilar DO Attending Provider Active Start: May 21, 2024 End: May 21, 2024 Dr. Saúl Aguilar DO Emergency Provider Active Start: May 21, 2024 End: May 21, 2024 Team Status: Inactive Member Role Status Dates Dr. Xiang Rogers DO Primary Care Provider Active Start: June 13, 2024 End: June 13, 2024 NILSON Heck Attending Provider Active Star t: June 13, 2024 End: June 13, 2024 NILSON Heck Referring Provider Active Star t: June 13, 2024 End: June 13, 2024 Team Status: Active Member Role Status Dates Dr. Xiang Rogers DO Primary Care Provider Active Start: June 13, 2024 Dr. Saúl Flowers MD Attending Provider Active S tart: June 13, 2024 NILSON Heck Referring Provider Active Star t: June 13, 2024 Team Status: Active Member Role Status Dates Dr. Xiang Rogers DO Primary Care Provider Active Start: June 15, 2024 Dr. Calos Quinn MD Other Provider Active Start : June 15, 2024 Magaly DEVINE, PA Attending Provider Active Start: June 15, 2024 Team Status: Inactive Member Role Status Dates Dr. Xiang Rogers DO Primary Care Provider Active Start: June 18, 2024 End: June 20, 2024 Dr. Jevon Osorio MD Emergency Provider Active Sta rt: June 18, 2024 End: June 20, 2024 Dr. Steve Esteban DO Admit Provider Active Start: June 18, 2024 End: June 20, 2024 Dr. Steve Esteban DO Other Provider Active Start: June 18, 2024 End: June 20, 2024 Dr. Mary Kay Nagel MD Other Provider Active Start: June 18, 2024 End: June 20, 2024 Dr. Otilia Chaudhary MD Other Provider Active St art: June 18, 2024 End: June 20, 2024 Dr. Merced Guerrier MD Other Provider Active Star t: June 18, 2024 End: June 20, 2024 Dr. George Ball MD Other Provider Active Sta rt: June 18, 2024 End: June 20, 2024 Dr. Calos Quinn MD Other Provider Active Start : June 18, 2024 End: June 20, 2024 Dr. Buck Trevino MD Other Provider Active Star t: June 18, 2024 End: June 20, 2024 Dr. Jose Garcia MD Other Provider Active St art: June 18, 2024 End: June 20, 2024 Dr. Alexandru Mckeon MD Other Provider Active Start: June 18, 2024 End: June 20, 2024 Dr. Abisai Farley MD Other Provider Active S tart: June 18, 2024 End: June 20, 2024 Dr. Riki Shay MD Other Provider Active Start: June 18, 2024 End: June 20, 2024 Dean Carson Jean FOREST FIRE EQUIPMENT OPERATOR, FOREST FIRE EQUIPMENT OPERATOR-C Other Provider Active Start : June 18, 2024 End: June 20, 2024 Magaly Abdi PA, PA Other Provider Active Start: June 18, 2024 End: June 20, 2024 NILSON Petersen Other Provider Active Start: June 18, 2024 End: June 20, 2024 Dr. Triston Muro MD Other Provider Active Start: June 18, 2024 End: June 20, 2024 Dr. Donna Wolff MD Other Provider Active Star t: June 18, 2024 End: June 20, 2024 Dr. Seth Carrington , Attending Provider Active Start: June 18, 2024 End: June 20, 2024 Team Status: Active Member Role Status Dates Dr. Xiang Rogers DO Primary Care Provider Active Start: June 18, 2024 Dr. Jevon Osorio MD Emergency Provider Active Sta rt: June 18, 2024 Dr. Steve Esteban DO Admit Provider Active Start: June 18, 2024 Dr. Steve Esteban DO Attending Provider Active Start: June 18, 2024 Dr. Steve Esteban DO Other Provider Active Start: June 18, 2024 Dr. Triston Muro MD Other Provider Active Start: June 18, 2024 Team Status: Active Member Role Status Dates Dr. Xiang Rogers DO Primary Care Provider Active Start: June 18, 2024 Dr. Alexandru Mckeon MD Attending Provider Activ e Start: June 18, 2024 Team Status: Active Member Role Status Dates Dr. Xiang Rogers DO Primary Care Provider Active Start: June 19, 2024 Dr. Jevon Osorio MD Emergency Provider Active Sta rt: June 19, 2024 Dr. Steve Esteban DO Admit Provider Active Start: June 19, 2024 Dr. Steve Esteban DO Other Provider Active Start: June 19, 2024 Dr. Mary Kay Nagel MD Other Provider Active Start: June 19, 2024 Dr. Otilia Chaudhary MD Other Provider Active St art: June 19, 2024 Dr. Merced Guerrier MD Other Provider Active Star t: June 19, 2024 Dr. George Ball MD Other Provider Active Sta rt: June 19, 2024 Dr. Calos Quinn MD Other Provider Active Start : June 19, 2024 Dr. Buck Trevino MD Other Provider Active Star t: June 19, 2024 Dr. Jose Garcia MD Other Provider Active St art: June 19, 2024 Dr. Alexandru Mckeon MD Other Provider Active Start: June 19, 2024 Dr. Abisai Farley MD Other Provider Active S tart: June 19, 2024 Dr. Riki Shay MD Other Provider Active Start: June 19, 2024 Dean Pena FOREST FIRE EQUIPMENT OPERATOR, FOREST FIRE EQUIPMENT OPERATOR-C Other Provider Active Start : June 19, 2024 Magaly Abdi PA, PA Other Provider Active Start: June 19, 2024 NILSON Petersen Other Provider Active Start: June 19, 2024 Dr. Donna Wolff MD Attending Provider Active Start: June 19, 2024 Dr. Donna Wolff MD Other Provider Active Star t: June 19, 2024 Dr. Triston Muro MD Other Provider Active Start: June 19, 2024 Team Status: Active Member Role Status Dates Dr. Xiang Rogers DO Primary Care Provider Active Start: June 19, 2024 Dr. Jevon Osorio MD Emergency Provider Active Sta rt: June 19, 2024 Dr. Steve Esteban DO Admit Provider Active Start: June 19, 2024 Dr. Steve Esteban DO Other Provider Active Start: June 19, 2024 Dr. Mary Kay Nagel MD Other Provider Active Start: June 19, 2024 Dr. Otilia Chaudhary MD Other Provider Active St art: June 19, 2024 Dr. Merced Guerrier MD Other Provider Active Star t: June 19, 2024 Dr. George Ball MD Other Provider Active Sta rt: June 19, 2024 Dr. Calos Quinn MD Other Provider Active Start : June 19, 2024 Dr. Buck Trevino MD Other Provider Active Star t: June 19, 2024 Dr. Jose Garcia MD Other Provider Active St art: June 19, 2024 Dr. Alexandru Mckeon MD Attending Provider Activ e Start: June 19, 2024 Dr. Alexandru Mckeon MD Other Provider Active Start: June 19, 2024 Dr. Abisai Farley MD Other Provider Active S tart: June 19, 2024 Dr. Riki Shay MD Other Provider Active Start: June 19, 2024 Dean Pena FOREST FIRE EQUIPMENT OPERATOR, FOREST FIRE EQUIPMENT OPERATOR-C Other Provider Active Start : June 19, 2024 Magaly Abdi PA, PA Other Provider Active Start: June 19, 2024 NILSON Petersen Other Provider Active Start: June 19, 2024 Dr. Donna Wolff MD Other Provider Active Star t: June 19, 2024 Dr. Triston Muro MD Other Provider Active Start: June 19, 2024 Team Status: Active Member Role Status Dates Dr. Xiang Rogers DO Primary Care Provider Active Start: June 20, 2024 Dr. Jevon Osorio MD Emergency Provider Active Sta rt: June 20, 2024 Dr. Steve Esteban DO Admit Provider Active Start: June 20, 2024 Dr. Steve Esteban DO Other Provider Active Start: June 20, 2024 Dr. Mary Kay Nagel MD Other Provider Active Start: June 20, 2024 Dr. Otilia Chaudhary MD Other Provider Active St art: June 20, 2024 Dr. Merced Guerrier MD Other Provider Active Star t: June 20, 2024 Dr. George Ball MD Other Provider Active Sta rt: June 20, 2024 Dr. Calos Quinn MD Attending Provider Active S tart: June 20, 2024 Dr. Calos Quinn MD Other Provider Active Start : June 20, 2024 Dr. Buck Trevino MD Other Provider Active Star t: June 20, 2024 Dr. Jose Garcia MD Other Provider Active St art: June 20, 2024 Dr. Alexandru Mckeon MD Other Provider Active Start: June 20, 2024 Dr. Abisai Farley MD Other Provider Active S tart: June 20, 2024 Dr. Riki Shay MD Other Provider Active Start: June 20, 2024 Dean Pena FOREST FIRE EQUIPMENT OPERATOR, FOREST FIRE EQUIPMENT OPERATOR-C Other Provider Active Start : June 20, 2024 Magaly Abdi PA, PA Other Provider Active Start: June 20, 2024 NILSON Petersen Other Provider Active Start: June 20, 2024 Dr. Triston Muro MD Other Provider Active Start: June 20, 2024 Dr. Seth Carrington , Other Provider Active S tart: June 20, 2024 Dr. Donna Wolff MD Other Provider Active Star t: June 20, 2024 Team Status: Active Member Role Status Dates Dr. Xiang Rogers , Primary Care Provider Active Start: June 20, 2024 Dr. Jevon Osorio MD Emergency Provider Active Sta rt: June 20, 2024 Dr. Steve Esteban , DO Admit Provider Active Start: June 20, 2024 Dr. Steve Esteban DO Other Provider Active Start: June 20, 2024 Dr. Mary Kay Nagel MD Other Provider Active Start: June 20, 2024 Dr. Otilia Chaudhary MD Other Provider Active St art: June 20, 2024 Dr. Merced Guerrier MD Other Provider Active Star t: June 20, 2024 Dr. George Ball MD Other Provider Active Sta rt: June 20, 2024 Dr. Calos Quinn MD Other Provider Active Start : June 20, 2024 Dr. Buck Trevino MD Other Provider Active Star t: June 20, 2024 Dr. Jose Garcia MD Other Provider Active St art: June 20, 2024 Dr. Alexandru Mckeon MD Other Provider Active Start: June 20, 2024 Dr. Abisai Farley MD Other Provider Active S tart: June 20, 2024 Dr. Riki Shay MD Other Provider Active Start: June 20, 2024 Dean Pena FOREST FIRE EQUIPMENT OPERATOR, FOREST FIRE EQUIPMENT OPERATOR-C Other Provider Active Start : June 20, 2024 Magaly Abdi PA, PA Other Provider Active Start: June 20, 2024 NILSON Petersen Other Provider Active Start: June 20, 2024 Dr. Triston Muro MD Other Provider Active Start: June 20, 2024 Dr. Seth Carrington , Attending Provider Active Start: June 20, 2024 Dr. Seth Carrington , DO Other Provider Active S tart: June 20, 2024 Dr. Donna Wolff MD Other Provider Active Star t: June 20, 2024 Team Status: Inactive Member Role Status Dates Dr. Xiang Rogers DO Primary Care Provider Active Start: July 12, 2024 End: July 12, 2024 Dr. Xiang Rogers DO Referring Provider Active Start: July 12, 2024 End: July 12, 2024 Ronit Galvez FOREST FIRE EQUIPMENT OPERATOR, FOREST FIRE EQUIPMENT OPERATOR-C Attending Provider Active Start: July 12, 2024 End: July 12, 2024 Team Status: Inactive Member Role Status Dates Dr. Xiang Rogers DO Primary Care Provider Active Start: July 14, 2024 End: July 14, 2024 Dr. Xiang Rogers DO Referring Provider Active Start: July 14, 2024 End: July 14, 2024 NILSON Heck Attending Provider Active Star t: July 14, 2024 End: July 14, 2024 Team Status: Inactive Member Role Status Dates Dr. Xiang Rogers DO Primary Care Provider Active Start: July 29, 2024 End: July 29, 2024 Dr. Lawson Castellon DO Attending Provider Active Start : July 29, 2024 End: July 29, 2024 Dr. Lawson Castellon DO Emergency Provider Active Start : July 29, 2024 End: July 29, 2024 Team Status: Inactive Member Role Status Dates Dr. Xiang Rogers DO Primary Care Provider Active Start: August 02, 2024 End: August 02, 2024 Dr. Xiang Rogers DO Attending Provider Active Start: August 02, 2024 End: August 02, 2024 Dr. Xiang Rogers DO Referring Provider Active Start: August 02, 2024 End: August 02, 2024 Team Status: Inactive Member Role Status Dates Dr. Xiang Rogers DO Primary Care Provider Active Start: September 08, 2024 End: September 08, 2024 NILSON Heck Attending Provider Active Star t: September 08, 2024 End: September 08, 2024 NILSON Heck Referring Provider Active Star t: September 08, 2024 End: September 08, 2024 Team Status: Active Member Role Status Dates Dr. Xiang Rogers DO Primary Care Provider Active Start: September 08, 2024 Dr. Saúl Flowers MD Attending Provider Active S tart: September 08, 2024 (unrecognized sect ion and content) No Status Records FoundNo Status Records Found INFORMATION SOURCE (unrecogn ized section and content) DATE CREATED AUTHOR 02/05/2022 [facility] DATE CREATED AUTHOR 'S ORGANIZ ATION 09/13/2024 [facility] FOR RECORDS PERTAINING TO PATIENTS WHO ARE [...] BE BASED ON THE PRIMARY CLINICAL RECORDS. [employer] provides no warranty or guarantee of the accuracy or completeness of information in this document.
[2024-09-18 11:19] LABS: Anion Gap 12 (5-15); BUN 17 mg/dL (4-19); BUN/Creat Ratio 16.5 RATIO (10-20); Calcium,Total 9.3 mg/dL (7.6-11.0); Carbon Dioxide 22.3 mmol/L (21.0-32.0); Chloride 105 mmol/L (98-108); Creatinine, Serum 1.01 mg/dL (0.70-1.20); EST Glomerular Filtration Rate 83 (>60); Glucose 184 mg/dL (70-99); Pro- Brain NATRIURETIC PEPTIDE 2552 pg/mL (<=900); Sodium Level 139 mmol/L (133-145)
[2024-09-18 11:34] LABS: Troponin T High Sensitivity 64 ng/L (<=22)
[2024-09-18] MEDS: Ipratropium/Albuterol Sulfate 3 ML AMPUL.NEB INHALATION (12:04)
[2024-09-18 13:25] LABS: Troponin T High Sens 2 HR 62 ng/L (<=22)
[2024-09-18] MEDS: Nitroglycerin Oint 1 INCH PACKET TD (13:33)
--- NOTE | 2024-09-18 13:39 | PCM.HP.STD ---
HPI - General General Date of Admission: 09/18/24 Date of Service: 09/18/24 Chief Complaint: Shortness of breath and chest discomfort HPI Narrative KANA MEJIA, is a 64 M who presented to [facility] ED on 09/18/2024 with chest pain and volume overload. Patient was hospitalized here in June for similar presentation. Has history of CABG x 4 back in 2006. Nuclear stress test showed evidence of apical infarct, and echocardiogram showed worsening EF of 35 to 40%. However as patient was asymptomatic and has poorly controlled diabetes, recommendation was made for maximizing medical therapy on discharge. He presents today with 3-day history of worsening shortness of breath, chest discomfort and lower extremity swelling. Reports taking his home Lasix as prescribed and has had fairly good urine output recently. Sinus tachycardia to the 100s noted in the ED but otherwise hemodynamically stable on room air at rest. Chest x-ray was called is not acute but on my review appears to show mild volume overload in comparison to previous chest x-ray from 3 months ago. BNP elevated at 2552. Troponin trend 64 > 62. No EKG changes noted. Patient was given doses of aspirin and nitro and reported improvement in his chest pain. Given these findings, hospitalist was then contacted for admission. I saw the patient at bedside in the ED. He was sitting up comfortably in bedside chair, conversing normally, in no acute distress. He was breathing comfortably on room air at rest. He did have +2-3 lower extremity pitting edema bilaterally and bibasilar crackles noted on lung exam. He denied any recent illnesses. Lives at home and takes care of his 8-year-old grandson, states he has had good functional status to this point. No other acute concerns at this time. Will be admitted for further management. [facility] Medical History GERD (gastroesophageal reflux disease) Anxiety High blood cholesterol Diabetes mellitus Emphysema, unspecified COPD (chronic obstructive pulmonary disease) Decreased left ventricular function Encounter for screening for malignant neoplasm of lung in current smoker with 30 pack year history or greater Stenosis of right carotid artery Insulin dependent diabetes mellitus History of non-ST elevation myocardial infarction (NSTEMI) (06/11/18) Emphysema lung Asthma Type 2 diabetes mellitus Arthritis Pancreatitis GERD (gastroesophageal reflux disease) Nicotine dependence Atherosclerosis of coronary artery of [place] heart without angina pectoris Hyperlipidemia Essential (primary) hypertension Home Medications Medication Instructions Recorded Last Taken Type blood sugar diagnostic (FreeStyle #50 ea 04/02/21 Unknown Rx Test strips) blood-glucose meter (FreeStyle #1 ea 04/02/21 Unknown Rx System Kit) lancets 28 gauge (FreeStyle #50 ea 04/02/21 Unknown Rx Lancets) pen needle, diabetic 31 gauge x #100 ea 04/02/21 Unknown Rx 3/16" (1st Tier Unifine Pentips Plus) nitroglycerin 0.4 mg sublingual 0.4 mg sublingual Q5M PRN 04/24/22 09/18/24 Rx tablet Cardiac/Chest Pain #20 tabs alfuzosin 10 mg tablet,extended 10 mg PO DAILY 01/26/23 Unknown History release 24 hr buspirone 5 mg tablet 5 mg PO BID anxiety #180 tabs 06/26/23 09/18/24 Rx Handicap placard #1 ea 07/22/23 Unknown Rx isosorbide mononitrate 30 mg See Rx Instructions .Route 07/22/23 Unknown Rx tablet,extended release 24 hr .COMPLEX #90 tabs pen needle, diabetic 31 gauge x #100 ea 10/28/23 Unknown Rx 5/16" (Comfort EZ Pen [place]) evolocumab 140 mg/mL subcutaneous 140 mg subcut Q2W #6 mL 05/09/24 09/12/24 Rx pen injector (Wolf Bernal) albuterol sulfate 90 mcg/actuation 2 puff inhalation Q4H PRN 06/17/24 09/17/24 History aerosol inhaler shortness of breath or wheezing atenolol 50 mg tablet 50 mg PO DAILY 06/17/24 09/18/24 History ezetimibe 10 mg tablet 10 mg PO DAILY 06/17/24 09/18/24 History insulin glargine 100 unit/mL (3 20 unit subcut DAILY Diabetes 06/17/24 09/18/24 History mL) subcutaneous pen (Lantus Solostar U-100 Insulin) losartan 25 mg tablet 25 mg PO DAILY 06/17/24 09/18/24 History metformin 1,000 mg tablet 1,000 mg PO BID 06/17/24 09/18/24 History mometasone-formoterol HFA 100 2 puff inhalation BID COPD 06/18/24 09/18/24 History mcg-5 mcg/actuation aerosol inhaler (Dulera) aspirin 81 mg chewable tablet 81 mg PO BREAKFAST #0 tabs 06/20/24 09/18/24 Rx furosemide 40 mg tablet 40 mg PO BIDLX #60 tabs 06/20/24 Unknown Rx nicotine 21 mg/24 hr daily 21 mg transdermal DAILY #30 ea 06/20/24 Unknown Rx transdermal patch spironolactone 25 mg tablet 25 mg PO DAILY #30 tabs 06/20/24 Unknown Rx cilostazol 50 mg tablet 50 mg PO DAILY Cholesterol #60 tabs 09/09/24 09/18/24 Rx Farxiga 10 mg tablet 10 mg PO DAILY #90 TABLETS 09/13/24 09/18/24 Rx (dapagliflozin propanediol) omeprazole 20 mg capsule,delayed 20 mg PO DAILY #90 caps 09/13/24 09/18/24 Rx release clopidogrel 75 mg tablet 75 mg PO DAILY 09/18/24 09/18/24 History fluticasone propionate 50 2 spray intranasal DAILY PRN nasal 09/18/24 Unknown History mcg/actuation nasal congestion spray,suspension (Flonase Allergy Relief) insulin lispro protamine-lispro 20 - 35 unit subcut BID 09/18/24 09/17/24 History 100 unit/mL (50-50) subcutaneous pen (Humalog Mix 50-50 KwikPen) ondansetron 4 mg disintegrating 4 mg PO Q8H PRN Nausea 09/18/24 Unknown History tablet Allergy/AdvReac Type Severity Reaction Status Date / Time amoxicillin Allergy Angioedema Verified 09/18/24 09:57 lindane Allergy Rash Verified 09/18/24 09:57 Family History Father Asthma Alcoholism Arthritis Heart disease Hypertension High cholesterol CVA (cerebral vascular accident) Lung cancer Grandfather Myocardial infarction Surgical History S/P CABG x 4 History of hernia repair History of carotid endarterectomy (01/06/14) H/O coronary artery bypass surgery (2006) History of left heart catheterization (06/11/18) Social History Smoking Status: Heavy Smoker (>10/day) Tobacco: How many years used: 45 Electronic Cigarette Use: not used second hand exposure: Yes quit status: considering quitting alcohol intake: never substance use type: does not use caffeine: Yes Type: coffee Number of servings: 5 what type of physical activity do you participate in: none ROS Constitutional Constitutional: Denies chills, fatigue, fever(s) or weakness Eyes Eyes: Denies change in vision Cardiovascular Cardiovascular: Reports chest pain, dyspnea on exertion and edema; Denies lightheadedness or palpitations Respiratory/Chest Respiratory/Chest: Reports shortness of breath at rest and shortness of breath with exertion; Denies cough, productive cough or wheezing Gastrointestinal Gastrointestinal: Denies abdominal pain Genitourinary Genitourinary: Denies dysuria Musculoskeletal Musculoskeletal: Denies arthralgias or myalgias Vital Signs Vital Signs Vital Signs: 09/18/24 09:51 09/18/24 09:59 09/18/24 10:34 Temperature 96.9 F L Temperature Source Oral Pulse Rate 110 H Respiratory Rate 24 H Respiratory Effort Normal Non-Labored Respiratory Pattern Blood Pressure 97/82 H Blood Pressure Mean 87 Pulse Ox 95 Oxygen Delivery Method Room Air Room Air 09/18/24 10:44 09/18/24 10:54 09/18/24 12:05 Temperature Temperature Source Pulse Rate 101 H 97 98 Respiratory Rate 19 H 18 Respiratory Effort Respiratory Pattern Normal Blood Pressure 109/69 112/62 Blood Pressure Mean 78 Pulse Ox 93 Oxygen Delivery Method 09/18/24 12:07 09/18/24 13:00 09/18/24 13:33 Temperature Temperature Source Pulse Rate 97 101 H 95 Respiratory Rate 16 16 Respiratory Effort Respiratory Pattern Blood Pressure 131/85 H 136/74 H 118/77 Blood Pressure Mean 100 94 Pulse Ox 97 97 Oxygen Delivery Method Room Air Room Air 09/18/24 13:37 Temperature 98.2 F Temperature Source Pulse Rate 93 Respiratory Rate 15 Respiratory Effort Respiratory Pattern Blood Pressure 118/77 Blood Pressure Mean 90 Pulse Ox 98 Oxygen Delivery Method Weight Weight: 87.467 kg Body Mass Index (BMI) 26.9 Physical Exam Const alert, oriented x3, no apparent distress and average body habitus Constitutional Narrative: Upper middle-aged male, appears older than stated age, mildly fatigued appearing but otherwise sitting up comfortably in bedside chair, conversing normally, in no acute distress. General Appearance: cooperative and comfortable HEENT normocephalic, head/scalp atraumatic, hearing grossly normal bilaterally, nasal mucous membranes and turbinates normal and moist oral mucous membranes Eyes PERRL, EOMs intact bilaterally and conjunctivae normal Neck full ROM Chest inspection of chest normal Resp normal respiratory effort and no use of accessory muscles Resp Narrative: Breathing comfortably on room air at rest. Bibasilar crackles noted but otherwise good air movement throughout with no wheezing noted. Cardio no murmurs and peripheral pulses 2+ throughout Cardio Narrative: Tachycardic, regular rhythm. GI normal to inspection, nondistended, normoactive bowel sounds, soft to palpation, non-tender and non-distended Back/Spine normal ROM Extremity Extremity Narrative: +2-3 lower extremity pitting edema noted. Venous stasis changes noted as well. Psych mental status grossly normal Results Lab / Micro Data 09/18/24 10:05 09/18/24 10:05 Labs: Laboratory Results - last 24 hr 09/18/24 10:05: WBC 7.6, RBC 4.64, Hgb 14.8, Hct 44.4, MCV 95.7 H, MCH 31.9, MCHC 33.3, RDW Std Deviation 45.1 H, RDW Coeff of [place] 12.9, Plt Count 276, MPV 9.5, Immature Gran % (Auto) 0.300, Neut % (Auto) 61.9, Lymph % (Auto) 27.0, [place] % (Auto) 6.7, Eos % (Auto) 3.7, Baso % (Auto) 0.4, Absolute Neuts (auto) 4.7, Absolute Lymphs (auto) 2.05, Nucleated RBC % 0, Sodium 139, Potassium 5.0, Chloride 105, Carbon Dioxide 22.3, Anion Gap 12, BUN 17, Creatinine 1.01, Estim Creat Clear Calc 78.70, Est GFR (MDRD) Non-Af 83, BUN/Creatinine Ratio 16.5, Glucose 184 H, Calcium 9.3, Troponin T High Sens 64 H* D, NT pro BNP II 2552 H 09/18/24 12:01: Troponin T Hi Sens 2 Hr 62 H* Imaging Radiology Impression Chest X-Ray 09/18/24 10:26 IMPRESSION: No Acute Findings. Reading Location: [facility] Assessment & Plan Assessment/Plan (1) Acute on chronic HFrEF (heart failure with reduced ejection fraction): PLAN: Plan Patient is a 64-year-old male who presented to [facility] ED on 09/18/2024 with shortness of breath, chest discomfort and worsening lower extremity edema. 1. Acute HFrEF exacerbation with elevated troponins; history of CAD with CABG, hypertension, hyperlipidemia, moderate aortic valve stenosis, bilateral carotid artery stenosis, history of PAD with claudication – Admit under inpatient status to PCU. Follows with outpatient cardiology and vascular surgery, see recent office notes for further details. Presented with chest pain and shortness of breath with worsening LE edema. Chest x-ray with mild worsening volume overload, BNP 2550. Troponin trend 64 > 62, EKG stable from previous. Had heart failure exacerbation in June; echo showed EF 35 to 40% with apical hypokinesis, and stress test showed evidence of distal anterior, apex and inferior apical infarct. Per cardiology then, given patient was asymptomatic and had poorly controlled diabetes, no need for intervention and plan was for maximizing medical therapy. Chest pain here did seem to improve with baby aspirin and nitroglycerin in the ED. I am concerned that patient may have ongoing ischemic disease leading to worsening heart failure but unclear if patient would be a candidate for further intervention. Repeat echo ordered; pending this result, can consider cardiology consult. Will treat with IV Lasix 40 mg twice daily for now, monitor daily BMP and urine output. Continue home aspirin, Plavix, atenolol, Zetia, Farxiga, Imdur and cilostazol. Is on a PCSK9 inhibitor every 2 weeks at home. Will hold home losartan and spironolactone for now given mild hyperkalemia as noted below. 2. Poorly controlled type 2 diabetes mellitus – Last A1c 12.5% on 08/02/2024 with A1c values consistently above 10% since early 2023. Repeat A1c ordered. Glucose 184 on admit. Patient notes that glucoses have been better controlled at home recently. Will treat with Lantus 20 units daily and Humalog 8 units plus sliding scale insulin with meals, adjust as needed. 3. Mild hyperkalemia – Potassium 5.0 on admit. Giving IV Lasix as noted above and holding home losartan and spironolactone for now, low threshold to restart as needed. Monitor daily BMP. Chronic medical conditions: – COPD: Stable on room air with no wheezing on exam, not in acute exacerbation. Continue home inhalers. – GERD: Continue home PPI. – Tobacco abuse: Continue home nicotine patch. – Anxiety/depression: Continue home BuSpar and alfusozin. DVT prophylaxis: Lovenox CODE STATUS: Full code, verify Expected disposition: Home, TBD Total clinical time spent by myself addressing the patient's medical issues, reviewing all the data, and collaborating with patient's care team: 75 minutes. Charges/Coding Visit Charges Inpatient E&M: 40683 Init Hosp L3
--- NOTE | 2024-09-18 13:45 | ECHOL_ITS ---
Reason For Study : CHF Procedure This was a limited 2D transthoracic echocardiogram. Myocardial strain analysis was performed in this exam to aid in the assessment of cardiac function. Exam performed portable in patient room. Left Ventricle Normal LV size. The left ventricular ejection fraction is 35 %. [place] : Akinetic. Mid-Anterior : Severely Hypokinetic. Right Ventricle Normal RV size. Normal systolic function. Atria Normal left atrium. Normal right atrium. Mitral Valve Normal mitral valve. Aortic Valve Trisinus/trileaflet aortic valve. Moderate focal aortic valve calcification. Pericardium/Pleural No pericardial effusion. MMode/2D Measurements & Calculations LVIDd: 4.8 cm IVSd: 1.0 cm LAV(MOD-sp2): 30.2 ml LVIDs: 4.1 cm LVPWd: 0.99 cm FS: 13.0 % SV(MOD-sp4): 37.9 ml LVAd ap4: 32.4 cm2 LVAd ap2: 31.0 cm2 LVLd ap4: 8.2 cm LVLd ap2: 8.5 cm SI(MOD-sp4): 18.3 ml/m2 EDV(MOD-sp4): 105.8 ml EDV(MOD-sp2): 93.4 ml EDV(sp4-el): 109.1 ml EDV(sp2-el): 96.2 ml LVAs ap4: 26.1 cm2 LVAs ap2: 26.0 cm2 LVLs ap4: 8.3 cm LVLs ap2: 8.7 cm ESV(MOD-sp4): 67.9 ml ESV(MOD-sp2): 66.1 ml ESV(sp4-el): 69.8 ml ESV(sp2-el): 66.4 ml EF(MOD-sp4): 35.8 % EF(MOD-sp2): 29.2 % EF(sp4-el): 36.0 % SV(MOD-sp2): 27.2 ml SV(sp4-el): 39.3 ml SI(MOD-sp2): 13.1 ml/m2 ECHO/Echo, Limited Study Interpretation Summary The left ventricular ejection fraction is 35 %. Normal LV size. [place] : Akinetic. Mid-Anterior : Severely Hypokinetic. Compared to previous study, the left ventricular systolic function is the same. . The global longitudinal strain is severely abnormal. Ordering Physician: Clinton Soares Referring Physician: Rebel Nuñez M.D. Performed By: Lyn Hughes RCS
--- NOTE | 2024-09-18 14:00 | CASEMGMT ---
Care Management Face to Face with patient for initial transition planning/care coordination assessment in the ED. This jingle writer introduced self and role at [facility]. Patient alert and oriented. Patient willing to participate in assessment and is able to answer all questions appropriately. Care providers, pharmacy, and demographics verified. Admitting Diagnosis: HFrEF Exacerbation Other diagnosis history: Including but not limited to: Gastroesophageal Reflux Disease (GERD), High blood cholesterol, Diabetes Mellitus, Chronic Obstructive Pulmonary Disease (COPD), History of non-ST elevation myocardial infarction (MSTEMI), Arthritis, Pancreatitis, Nicotine dependence, Hyperlipidemia, Congestive Heart Failure (CHF) and Anxiety. PCP: Dr. Ant Nuñez Specialists: Cardiology (ARABELLA Galvez) and Vascular (Dr. Saúl Flowers) Preferred Pharmacy: [facility] Insurance: Primary: [employer] and Secondary: [employer] Prescription Benefit: Yes Living Will/HPOA: No, but interested in completing during this admission. LNOK: Patient is and has 2 daughters, Christine, age 32, who resides in [place], Solange, age 36 who resides in [place], son, Jaylen Corbett Jr., and patient’s grandson, Joseluis Corbett, age 8 (Solange’s son whom patient stated he’s been raising since and who was recently diagnosed with Autism). Living Arrangements: Patient currently resides in a [id number] with [place]. Patient stated he has first floor laundry, has 3 steps leading in/out of the home with a handrail that patient reported he is able to navigate without difficulty. Patient denied any environmental barriers. Transportation: Patient drives. DME: None HHC: Denied SNF/Rehab: Denied Community Resources: [facility] Board of for Joseluis. Behavioral Health History: Patient reported he was put on medication almost 2.5 years ago after his and is currently working with his PCP to get weened off. Patient stated he feels as though he can manage without it and if not, patient stated he will asked to be put back on. Patient goals: Patient wishes to discharge home when medically ready, and denies need for home health care at this time. Patient denies any further needs or concerns at this time. Disposition Plan: admission to acute; RN CM/SW to follow for discharge planning needs that may arise. Chaya Shelton, MARKETING COMMUNICATION MANAGER, CHIEF RECORDIST
[2024-09-18] MEDS: Furosemide 100 MG/10 ML Vial 60 MG IV (14:02)
--- OUTSIDE RECORDS SUMMARY | 2024-09-18 14:05 | XMS RPT_ITS | CCD ---
Author Organization [facility] CliniSynv Care Team Providers Care Crisis Clinician Name Role Phone Unavailable Primary Care Provider [...] [phone] Dr. Xiang Rogers Referring Provider [phone] Galdino Baird Attending Provider Unavailable Abby HOSPICE SUPERINTENDENT, HOSPICE SUPERINTENDENT-C Kimberli Attending Provider Abby HOSPICE SUPERINTENDENT, HOSPICE SUPERINTENDENT-C Kimberli Referring Provider Dr. Xiang Rogers Primary Care Provider [phone] Dr. Xiang Rogers Attending Provider [phone] Dr. Xiang Roegrs Referring Provider [phone] Dr. Maribell Moura Emergency Provider Elizabeth, Dr. Flori Jones Admit Provider Elizabeth, Dr. Flori Jones Other Provider Fareed, Dr. Blackwood Other Provider Dr. Steve Fields Attending Provider Unavailable Diamond, Dr. Wilson Other Provider Unavailable Dr. Calos Quinn Attending Provider Roof HOSPICE SUPERINTENDENT, HOSPICE SUPERINTENDENT-C Dean Carson Attending Provider Xiang Rogers DO Primary Care Provider Dr. Xiang Rogers Primary Care Provider Dr. Xiang Rogers Attending Provider Dr. Xiang Rogers Referring Provider Roof HOSPICE SUPERINTENDENT, HOSPICE SUPERINTENDENT-C Dean Carson Attending Provider Dr. Xiang Rogers Primary Care Provider Dr. Xiang Rogers Referring Provider Dr. Xiang Rogers Attending Provider Dr. Xiang Rogers Primary Care Provider Dr. Xiang Rogers Referring Provider [facility] HOSPICE SUPERINTENDENT, HOSPICE SUPERINTENDENT-C Kimberli Attending Provider Xiang Rogers DO Primary Care Provider Dr. Xiang Rogers DO Primary Care Provider Dr. Xiang Rogers DO Referring Provider Lubna Calhoun Attending Provider Dr. Xiang Rogers DO Attending [...] Provider Esteban DO, Dr. Wilson Attending Provider [facility] Linda WESTBROOK, Dr. Horvath Attending Provider New [...] Consulting Unavailabl e Satti, Abisai Consulting Unavailable Roxbury, Riki Consulting Unavailable Roof HOSPICE SUPERINTENDENT, Dean H Consulting Unavailable Trinidad DEVINE, Magaly [...] Consulting Unavailabl e Satti, Abisai Consulting Unavailable Roxbury, Riki Consulting Unavailable Roof HOSPICE SUPERINTENDENT, Dean H Consulting Unavailable Magaly Denise Consulting [...] Brown, Xiang R Primary Care Unavailable Roof HOSPICE SUPERINTENDENT, Dean Carson Attending Unavailable Roof HOSPICE SUPERINTENDENT, Dean H Referring Unavailable Brown, Xiang R Primary Care Unavailable Abby HOSPICE SUPERINTENDENT, Kimberli Attending Unavailable Abby HOSPICE SUPERINTENDENT, Kimberli Referring Unavailable Brown, Xiang R Primary Care Unavailable Lenny HOSPICE SUPERINTENDENT, Ronit Referring Unavailable Lenny HOSPICE SUPERINTENDENT, Ronit Attending Unavailable Brown, Xiang R Primary [...] Unavailable Brown, Xiang R Referring Unavailable Lenny HOSPICE SUPERINTENDENT, Ronit Attending Unavailable Brown, Xiang R Primary [...] Unavailable Brown, Xiang R Referring Unavailable Lenny HOSPICE SUPERINTENDENT, Ronit Attending Unavailable Manley, Lubna Referring Unavailable Vancouver, Saúl Attending Unavailable Brown, Xiang R Primary Care Unavailable Alexandru Mckeon Attending Unavailabl e Brown, Xiang R Primary Care Unavailable Brown, Xiang R Primary Care Unavailable Vancouver, Saúl Attending Unavailable Brown, Xiang R Primary Care Unavailable Kai, Beals Attending Unavailable Brown, Xiang R Primary Care Unavailable Vancouver, Saúl Attending Unavailable Jose Small Referring Unavailable Brown, Xiang R Primary Care Unavailable Vancouver, Saúl Referring Unavailable Vancouver, Saúl Attending Unavailable Vancouver, Saúl Consulting Unavailable Seth Carrington Attending Unavailable Brown, Xiang R Primary Care Unavailable Kai, Calos Consulting Unavailable Magaly Denise Attending Unavail able Manley, Lubna Referring Unavailable Manley, Lubna Attending Unavailable Brown, Xiang R Primary Care Unavailable Allergies Allergy Classification Reported Allergen(s) Allergy Type Date of Onset Reaction(s) Facility (8 sources) Etodolac; Translations: [ETODOLAC] Drug Allergy 03-12-2005 GI Upset [facility] (20 sources) Amoxicillin; Translations: [AMOXICILLIN] Drug Allergy 07-18-2021 Angioedema [facility] (20 sources) Lindane; Translations: [LINDANE] Drug Allergy 07-18-2021 Rash [facility] (1 source) Amoxicillin Drug Allergy 08-02-2024 [facility] Repository (1 source) Lindane Drug Allergy 08-02-2024 [facility] Repository (1 source) Unable to Assess Drug allergy (disorder) 06-17-2024 [facility] Repository Medications Current Medications Medication Drug Class(es) Dates Sig (Normalized) Sig (Original) [id number] 200 actuat albuterol 0.09 mg/actuat metered dose [...] breakfast and dinner inject 28 [IU] by sifunetes bcutaneous injection once daily before breakfast insulin [...] of ritonavir twice daily for 5 days [place]-3 Fatty Acids-Fish Oil (12 sources) Start: 07-10-2017 End: 07-28-2017 [place]-3 Fatty Acids-Fish Oil Discontinued 2 EACH PO DAILY July 10, 2017 3:35pm July 28, 2017 1:36pm Start: 07-10-2017 End: 07-28-2017 [place]-3 Fatty Acids-Fish Oil Discontinued 2 EACH PO DAILY July 09, 2017 11:00pm July 28, 2017 12:36pm Start: 07-10-2017 End: 07-28-2017 [place]-3 Fatty Acids-Fish Oil Discontinued 2 EACH PO DAILY July 10, 2017 12:00am July 28, 2017 1:36pm [place]-3 Fatty Acids-Fish Oil 1 EACH capsule (1 source) Start: 07-10-2017 End: 07-28-2017 [place]-3 Fatty Acids-Fish Oil 1 EACH capsule Discontinued [...] Comment on above: Take 2 tablets by [facility] once daily. 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] Onset: 06-24-2024 Episodic [...] Flowers on 09-08-2024 Noninvasive arteriosclerosis study report [facility] Work Phone: [phone] Carotid Duplex Ultrasoundon 09-08-2024 Carotid Duplex Ultrasound Normal [facility] Duplex ultrasound of carotid artery reportOrdered By: Saúl Flowers on 09-08-2024 Study report [facility] Work Phone: [phone] Lower Ext Art Exam w/o Exerc zachary 09-08-2024 Lower Ext Art Exam w/o Exercis Normal [facility] Internal Medicine Office Vis iton 08-02-2024 Internal Medicine Office Visit Normal [facility] No Panel InformationOrdered By: Xiang Rogers on 08-02-2024 12.5 % High 4.2-6.3 [facility] L499.0043on 07-30-2024 Trop T High Sen Normal <=22 [facility] Comment on above: Result Comment: Canc elled via OM: Order cancelled - Patient discharged Performed By: #### L 499.0043 ####[facility] [address] [place], [address] Absolute lymphocyte countOrd ered By: ED PROVIDER on 07-29-2024 Lymphocytes Auto (Unsp spec) [#/Vol] 2.79 10*3/uL 0.83-4.51 [facility] Anion gap in Serum or Plasma Ordered By: Lawson Castellon on 07-29-2024 Anion gap [Moles/Vol] 16 mmol/L High 5-15 [facility] Automated lymphocyte count a s percentage of total leukocytesOrdered By: ED PROVIDER on 07-29-2024 Lymphocytes/100 WBC Auto (Unsp spec) 37.4 % 19-41 [facility] BUN/creatinine ratioOrdered By: Lawson Castellon on 07-29-2024 Urea nitrogen/Creatinine [Mass ratio] 20.7 mg/mg High 10-20 [facility] Basic Metabolic Profile (BMP )on 07-29-2024 BUN/CRE 20.7 RATIO High 10- [facility] Comment on above: Performed By: #### L 500.2500, L100.0100, L501.4021 ####[facility] [address] [place], [address] Calcium [Mass/Vol] 9.3 mg/dL Normal 7.6-11.0 [facility] Comment on above: Performed By: #### L 500.2500, L100.0100, L501.4021 ####[facility] [address] [place], [address] Chloride [Moles/Vol] 99 mmol/L Normal 98-108 [facility] Comment on above: Performed By: #### L 500.2500, L100.0100, L501.4021 ####[facility] [address] [place], [address] CO2 [Moles/Vol] 19.8 mmol/L Low 21.0-32.0 [facility] Comment on above: Performed By: #### L 500.2500, L100.0100, L501.4021 ####[facility] [address] [place], [address] Creatinine [Mass/Vol] 1.11 mg/dL Normal 0.70-1.20 [facility] Comment on above: Performed By: #### L 500.2500, L100.0100, L501.4021 ####[facility] [address] [place], [address] ECRCL 71.61 ml/min Normal 50-250 [facility] Comment on above: Performed By: #### L 500.2500, L100.0100, L501.4021 ####[facility] [address] [place], [address] GAP 16 High 5-15 [facility] Comment on above: Performed By: #### L 500.2500, L100.0100, L501.4021 ####[facility] [address] [place], [address] GFR/1.73 sq M.predicted among non-blacks MDRD (S/P/Bld) [Vol rate/Area] 74 mL/min/{1.73_m2} Normal >60 [facility] Comment on above: Result Comment: mL/m in/1.73m2 CKD-EPI Creatinine Equation (2020) Performed By: #### L 500.2500, L100.0100, L501.4021 ####[facility] [address] [place], [address] Glucose [Mass/Vol] 400 mg/dL High 70-99 [facility] Comment on above: Performed By: #### L 500.2500, L100.0100, L501.4021 ####[facility] [address] [place], [address] Potassium [Moles/Vol] 4.0 mmol/L Normal 3.3-5.1 [facility] Comment on above: Result Comment: Hemo lysis present, Results??could be affected.?? Performed By: #### L 500.2500, L100.0100, L501.4021 ####[facility] [address] [place], [address] Sodium [Moles/Vol] 134 mmol/L Normal 133-145 [facility] Comment on above: Performed By: #### L 500.2500, L100.0100, L501.4021 ####[facility] [address] [place], [address] Urea nitrogen [Mass/Vol] 23 mg/dL High 4-19 [facility] Comment on above: Performed By: #### L 500.2500, L100.0100, L501.4021 ####[facility] [address] [place], [address] Basophil percentageOrdered B y: ED PROVIDER on 07-29-2024 Basophils/100 WBC (Bld) 0.3 % 0-1 [facility] CBC W/Diff, Automatedon 07-06 Absolute Lymph 2.79 X10 3/uL Normal 0.83-4.51 [facility] Comment on above: Performed By: #### L 500.2500, L100.0100, L501.4021 ####[facility] [address] [place], [address] Absolute Neut 4.0 X10 3/uL Normal 2.0-7.7 [facility] Comment on above: Performed By: #### L 500.2500, L100.0100, L501.4021 ####[facility] [address] [place], [address] Basophils/100 WBC (Bld) 0.3 % Normal 0-1 [facility] Comment on above: Performed By: #### L 500.2500, L100.0100, L501.4021 ####[facility] [address] [place], [address] Eosinophils/100 WBC (Bld) 2.5 % Normal 0-5 [facility] Comment on above: Performed By: #### L 500.2500, L100.0100, L501.4021 ####[facility] [address] [place], [address] Erythrocyte distribution width (RBC) [Ratio] 12.7 % Normal 11.6-14.6 [facility] Comment on above: Performed By: #### L 500.2500, L100.0100, L501.4021 ####[facility] [address] [place], [address] Hematocrit (Bld) [Volume fraction] 44.1 % Normal 40-54 [facility] Comment on above: Performed By: #### L 500.2500, L100.0100, L501.4021 ####[facility] [address] [place], [address] Hemoglobin (Bld) [Mass/Vol] 15.6 g/dL Normal 13.0-16.5 [facility] Comment on above: Performed By: #### L 500.2500, L100.0100, L501.4021 ####[facility] [address] [place], [address] IG% 0.100 Normal 0.0-0.9 [facility] Comment on above: Result Comment: IG% - Immature Granulocytes (promyelocytes, myelocytes andmetamyelocytes) > 1% indicates that a LEFT SHIFT is Present. Performed By: #### L 500.2500, L100.0100, L501.4021 ####[facility] [address] [place], [address] Lymphocytes/100 WBC (Bld) 37.4 % Normal 19-41 [facility] Comment on above: Performed By: #### L 500.2500, L100.0100, L501.4021 ####[facility] [address] [place], [address] MCH (RBC) [Entitic mass] 32.2 pg High 27.0-32.0 [facility] Comment on above: Performed By: #### L 500.2500, L100.0100, L501.4021 ####[facility] [address] [place], [address] MCHC (RBC) [Mass/Vol] 35.4 g/dL Normal 32-36 [facility] Comment on above: Performed By: #### L 500.2500, L100.0100, L501.4021 ####[facility] [address] [place], [address] MCV (RBC) [Entitic vol] 90.9 fL Normal 80-94 [facility] Comment on above: Performed By: #### L 500.2500, L100.0100, L501.4021 ####[facility] [address] [place], [address] Monocytes/100 WBC (Bld) 6.6 % Normal 0-10 [facility] Comment on above: Performed By: #### L 500.2500, L100.0100, L501.4021 ####[facility] [address] [place], [address] Neutrophils/100 WBC (Bld) 53.1 % Normal 47-70 [facility] Comment on above: Performed By: #### L 500.2500, L100.0100, L501.4021 ####[facility] [address] [place], [address] Nucleated RBC (Bld) [#/Vol] 0 10*3/uL Normal 0-5 [facility] Comment on above: Performed By: #### L 500.2500, L100.0100, L501.4021 ####[facility] [address] [place], [address] Platelet mean volume (Bld) [Entitic vol] 10.3 fL Normal 6.2-12.0 [facility] Comment on above: Performed By: #### L 500.2500, L100.0100, L501.4021 ####[facility] [address] [place], [address] Platelets (Bld) [#/Vol] 275 10*3/uL Normal 150-450 [facility] Comment on above: Performed By: #### L 500.2500, L100.0100, L501.4021 ####[facility] [address] [place], [address] RBC (Bld) [#/Vol] 4.85 10*6/uL Normal 4.6-6.2 [facility] Comment on above: Performed By: #### L 500.2500, L100.0100, L501.4021 ####[facility] [address] [place], [address] RDW SD 41.7 fl Normal 35.1-43.9 [facility] Comment on above: Performed By: #### L 500.2500, L100.0100, L501.4021 ####[facility] [address] [place], [address] WBC (Bld) [#/Vol] 7.5 10*3/uL Normal 4.4-11.0 [facility] Comment on above: Performed By: #### L 500.2500, L100.0100, L501.4021 ####[facility] [address] [place], [address] Carbon dioxide, total [Moles /volume] in Central venous bloodOrdered By: Lawson Castellon on 07-29-2024 CO2 [Moles/Vol] 19.8 mmol/L Low 21.0-32.0 [facility] Chest 1 View (Portable)on Chest 1 View (Portable) Normal [facility] Chloride assayOrdered By: Isael Castellon on 07-29-2024 Chloride [Moles/Vol] 99 mmol/L 98-108 [facility] Emergency Department Summary on 07-29-2024 Emergency Department Summary Normal [facility] Eosinophil percentageOrdered By: ED PROVIDER on 07-29-2024 Eosinophils/100 WBC (Bld) 2.5 % 0-5 [facility] Erythrocyte distribution wid th ratioOrdered By: ED PROVIDER on 07-29-2024 Erythrocyte distribution width (RBC) [Ratio] 12.7 % 11.6-14.6 [facility] Erythrocyte distribution wid th standard deviationOrdered By: ED PROVIDER on 07-29-2024 Erythrocyte distribution width (RBC) [Ratio] 41.7 fl 35.1-43.9 [facility] Glomerular filtration rate ( GFR) estimation/1.73 sq m using serum, plasma, or whole bOrdered By: Lawson Castellon on 07-29-2024 GFR/1.73 sq M.predicted among non-blacks MDRD (S/P/Bld) [Vol rate/Area] 74 mL/min/{1.73_m2} >60 [facility] Hematocrit Auto (Bld) [Volum e fraction]Ordered By: ED PROVIDER on 07-29-2024 Hematocrit (Bld) [Volume fraction] 44.1 % 40-54 [facility] Hemoglobin measurementOrdere d By: ED PROVIDER on 07-29-2024 Hemoglobin (Bld) [Mass/Vol] 15.6 g/dL 13.0-16.5 [facility] Immature granulocytes/100 WB C Auto (Bld)Ordered By: ED PROVIDER on 07-29-2024 Immature granulocytes/100 WBC (Bld) 0.100 % 0.0-0.9 [facility] L499.0042on 07-29-2024 Trop T High Sen 27 ng/L High <=22 [facility] Comment on above: Performed By: #### L 499.0042 ####[facility] [address] [place], [address] L501.4021on 07-29-2024 Trop T High Sen 22 ng/L Normal <=22 [facility] Comment on above: Performed By: #### L 500.2500, L100.0100, L501.4021 ####[facility] [address] [place], [address] MCV (mean corpuscular volume ) determinationOrdered By: ED PROVIDER on 07-29-2024 MCV (RBC) [Entitic vol] 90.9 fL 80-94 [facility] Mean corpuscular hemoglobin (MCH) determinationOrdered By: ED PROVIDER on 07-29-2024 MCH (RBC) [Entitic mass] 32.2 pg High 27.0-32.0 [facility] Monocyte percentageOrdered B y: ED PROVIDER on 07-29-2024 Monocytes/100 WBC (Bld) 6.6 % 0-10 [facility] Neutrophil percentageOrdered By: ED PROVIDER on 07-29-2024 Neutrophils/100 WBC (Bld) 53.1 % 47-70 [facility] Platelet countOrdered By: ED PROVIDER on 07-29-2024 Platelets (Bld) [#/Vol] 275 10*3/uL 150-450 [facility] Potassium measurement (mass/ volume)Ordered By: Lawson Castellon on 07-29-2024 Potassium (Unsp spec) [Mass/Vol] 4.0 mmol/L 3.3-5.1 [facility] RBC Auto (Bld) [#/Vol]Ordere d By: ED PROVIDER on 07-29-2024 RBC (Bld) [#/Vol] 4.85 10*6/uL 4.6-6.2 [facility] Serum creatinine measurement (mass/volume)Ordered By: Lawson Castellon on 07-29-2024 Creatinine [Mass/Vol] 1.11 mg/dL 0.70-1.20 [facility] Serum glucose measurement (m ass/volume)Ordered By: Lawson Castellon on 07-29-2024 Glucose [Mass/Vol] 400 mg/dL High 70-99 [facility] Serum or plasma calcium brenda urement (mass/volume)Ordered By: Lawson Castellon on 07-29-2024 Calcium [Mass/Vol] 9.3 mg/dL 7.6-11.0 [facility] Serum or plasma urea nitroge n measurement (mass/volume)Ordered By: Lawson Castellon on 07-29-2024 Urea nitrogen [Mass/Vol] 23 mg/dL High - [facility] Sodium levelOrdered By: Lawson Castellon on 07-29-2024 Sodium [Moles/Vol] 134 mmol/L 133-145 [facility] Troponin T.cardiac [Mass/vol ume] in Serum or Plasma by High sensitivity methodOrdered By: Lawson Castellon on 07-29-2024 Troponin T.cardiac High sensitivity method [Mass/Vol] 27 ng/L High <22 [facility] Troponin T.cardiac High sensitivity method [Mass/Vol] 22 ng/L <22 [facility] White blood cell (WBC) count Ordered By: ED PROVIDER on 07-29-2024 WBC (Bld) [#/Vol] 7.5 10*3/uL 4.4-11.0 [facility] MR/BMS.BVSon 07-14-2024 MR/BMS.BVS Normal [facility] Cardiology Visit Reporton Cardiology Visit Report Normal [facility] Basic Metabolic Profile (BMP )on 06-26-2024 BUN Normal 07-23 [facility] Comment on above: Result Comment: Canc elled via OM: Order cancelled - Patient discharged Performed By: #### L 500.2500, L100.0500 ####[facility] [address] [place], [place], [id number] BUN/CRE Normal - [facility] Comment on above: Result Comment: Canc elled via OM: Order cancelled - Patient discharged Performed By: #### L 500.2500, L100.0500 ####[facility] [address] [place], [address] Calcium Normal 7.6-11.0 [facility] Comment on above: Result Comment: Canc elled via OM: Order cancelled - Patient discharged Performed By: #### L 500.2500, L100.0500 ####[facility] [address] [place], [address] CL Normal 98-108 [facility] Comment on above: Result Comment: Canc elled via OM: Order cancelled - Patient discharged Performed By: #### L 500.2500, L100.0500 ####[facility] [address] [place], [address] CO2 Normal 21.0-32.0 [facility] Comment on above: Result Comment: Canc elled via OM: Order cancelled - Patient discharged Performed By: #### L 500.2500, L100.0500 ####[facility] [address] [place], [address] CREAT,SERUM Normal 0.70-1.20 [facility] Comment on above: Result Comment: Canc elled via OM: Order cancelled - Patient discharged Performed By: #### L 500.2500, L100.0500 ####[facility] [address] [place], [address] eGFR Normal >60 [facility] Comment on above: Result Comment: Canc elled via OM: Order cancelled - Patient discharged Performed By: #### L 500.2500, L100.0500 ####[facility] [address] [place], [address] GAP Normal 5-15 [facility] Comment on above: Result Comment: Canc elled via OM: Order cancelled - Patient discharged Performed By: #### L 500.2500, L100.0500 ####[facility] [address] [place], [address] GLU Normal 70-99 [facility] Comment on above: Result Comment: Canc elled via OM: Order cancelled - Patient discharged Performed By: #### L 500.2500, L100.0500 ####[facility] [address] [place], [address] Potassium Normal 3.3-5.1 [facility] Comment on above: Result Comment: Canc elled via OM: Order cancelled - Patient discharged Performed By: #### L 500.2500, L100.0500 ####[facility] [address] [place], [address] Basic Metabolic Profile (BMP) Normal 133-145 [facility] Comment on above: Result Comment: Canc elled via OM: Order cancelled - Patient discharged Performed By: #### L 500.2500, L100.0500 ####[facility] [address] [place], [address] CBC-Complete Blood Cnt No Di ffon 06-26-2024 HCT Normal 40-54 [facility] Comment on above: Result Comment: Canc elled via OM: Order cancelled - Patient discharged Performed By: #### L 500.2500, L100.0500 ####[facility] [address] [place], [address] HGB Normal 13.0-16.5 [facility] Comment on above: Result Comment: Canc elled via OM: Order cancelled - Patient discharged Performed By: #### L 500.2500, L100.0500 ####[facility] [address] [place], [address] MCH Normal 27.0-32.0 [facility] Comment on above: Result Comment: Canc elled via OM: Order cancelled - Patient discharged Performed By: #### L 500.2500, L100.0500 ####[facility] [address] [place], [address] MCHC Normal 32-36 [facility] Comment on above: Result Comment: Canc elled via OM: Order cancelled - Patient discharged Performed By: #### L 500.2500, L100.0500 ####[facility] [address] [place], [address] MCV Normal 80-94 [facility] Comment on above: Result Comment: Canc elled via OM: Order cancelled - Patient discharged Performed By: #### L 500.2500, L100.0500 ####[facility] [address] [place], [address] PLT Normal 150-450 [facility] Comment on above: Result Comment: Canc elled via OM: Order cancelled - Patient discharged Performed By: #### L 500.2500, L100.0500 ####[facility] [address] [place], [address] RBC Normal 4.6-6.2 [facility] Comment on above: Result Comment: Canc elled via OM: Order cancelled - Patient discharged Performed By: #### L 500.2500, L100.0500 ####[facility] [address] [place], [address] RDW CV Normal 11.6-14.6 [facility] Comment on above: Result Comment: Canc elled via OM: Order cancelled - Patient discharged Performed By: #### L 500.2500, L100.0500 ####[facility] [address] [place], [address] RDW SD Normal 35.1-43.9 [facility] Comment on above: Result Comment: Canc elled via OM: Order cancelled - Patient discharged Performed By: #### L 500.2500, L100.0500 ####[facility] [address] [place], [address] WBC Normal 4.4-11.0 [facility] Comment on above: Result Comment: Canc elled via OM: Order cancelled - Patient discharged Performed By: #### L 500.2500, L100.0500 ####[facility] [address] [place], [address] Basic Metabolic Profile (BMP )on 06-25-2024 BUN Normal 4-19 [facility] Comment on above: Result Comment: Canc elled via OM: Order cancelled - Patient discharged Performed By: #### L 100.0500, L500.2500 ####[facility] [address] [place], [address] BUN/CRE Normal 10-20 [facility] Comment on above: Result Comment: Canc elled via OM: Order cancelled - Patient discharged Performed By: #### L 100.0500, L500.2500 ####[facility] [address] [place], [address] Calcium Normal 7.6-11.0 [facility] Comment on above: Result Comment: Canc elled via OM: Order cancelled - Patient discharged Performed By: #### L 100.0500, L500.2500 ####[facility] [address] [place], [address] CL Normal 98-108 [facility] Comment on above: Result Comment: Canc elled via OM: Order cancelled - Patient discharged Performed By: #### L 100.0500, L500.2500 ####[facility] [address] [place], [address] CO2 Normal 21.0-32.0 [facility] Comment on above: Result Comment: Canc elled via OM: Order cancelled - Patient discharged Performed By: #### L 100.0500, L500.2500 ####[facility] [address] [place], [address] CREAT,SERUM Normal 0.70-1.20 [facility] Comment on above: Result Comment: Canc elled via OM: Order cancelled - Patient discharged Performed By: #### L 100.0500, L500.2500 ####[facility] [address] [place], [address] eGFR Normal >60 [facility] Comment on above: Result Comment: Canc elled via OM: Order cancelled - Patient discharged Performed By: #### L 100.0500, L500.2500 ####[facility] [address] [place], [address] GAP Normal 5-15 [facility] Comment on above: Result Comment: Canc elled via OM: Order cancelled - Patient discharged Performed By: #### L 100.0500, L500.2500 ####[facility] [address] [place], [address] GLU Normal 70-99 [facility] Comment on above: Result Comment: Canc elled via OM: Order cancelled - Patient discharged Performed By: #### L 100.0500, L500.2500 ####[facility] [address] [place], [address] Potassium Normal 3.3-5.1 [facility] Comment on above: Result Comment: Canc elled via OM: Order cancelled - Patient discharged Performed By: #### L 100.0500, L500.2500 ####[facility] [address] [place], [address] Basic Metabolic Profile (BMP) Normal 133-145 [facility] Comment on above: Result Comment: Canc elled via OM: Order cancelled - Patient discharged Performed By: #### L 100.0500, L500.2500 ####[facility] [address] [place], [address] CBC-Complete Blood Cnt No Di ffon 06-25-2024 HCT Normal 40-54 [facility] Comment on above: Result Comment: Canc elled via OM: Order cancelled - Patient discharged Performed By: #### L 100.0500, L500.2500 ####[facility] [address] [place], [address] HGB Normal 13.0-16.5 [facility] Comment on above: Result Comment: Canc elled via OM: Order cancelled - Patient discharged Performed By: #### L 100.0500, L500.2500 ####[facility] [address] [place], [address] MCH Normal 27.0-32.0 [facility] Comment on above: Result Comment: Canc elled via OM: Order cancelled - Patient discharged Performed By: #### L 100.0500, L500.2500 ####[facility] [address] [place], [address] MCHC Normal 32-36 [facility] Comment on above: Result Comment: Canc elled via OM: Order cancelled - Patient discharged Performed By: #### L 100.0500, L500.2500 ####[facility] [address] [place], [address] MCV Normal 80-94 [facility] Comment on above: Result Comment: Canc elled via OM: Order cancelled - Patient discharged Performed By: #### L 100.0500, L500.2500 ####[facility] [address] [place], [address] PLT Normal 150-450 [facility] Comment on above: Result Comment: Canc elled via OM: Order cancelled - Patient discharged Performed By: #### L 100.0500, L500.2500 ####[facility] [address] [place], [address] RBC Normal 4.6-6.2 [facility] Comment on above: Result Comment: Canc elled via OM: Order cancelled - Patient discharged Performed By: #### L 100.0500, L500.2500 ####[facility] [address] [place], [address] RDW CV Normal 11.6-14.6 [facility] Comment on above: Result Comment: Canc elled via OM: Order cancelled - Patient discharged Performed By: #### L 100.0500, L500.2500 ####[facility] [address] [place], [address] RDW SD Normal 35.1-43.9 [facility] Comment on above: Result Comment: Canc elled via OM: Order cancelled - Patient discharged Performed By: #### L 100.0500, L500.2500 ####[facility] [address] [place], [address] WBC Normal 4.4-11.0 [facility] Comment on above: Result Comment: Canc elled via OM: Order cancelled - Patient discharged Performed By: #### L 100.0500, L500.2500 ####[facility] [address] [place], [address] Basic Metabolic Profile (BMP )on 06-24-2024 BUN Normal 4-19 [facility] Comment on above: Result Comment: Canc elled via OM: Order cancelled - Patient discharged Performed By: #### L 500.2500, L100.0500 ####[facility] [address] [place], [address] BUN/CRE Normal 10-20 [facility] Comment on above: Result Comment: Canc elled via OM: Order cancelled - Patient discharged Performed By: #### L 500.2500, L100.0500 ####[facility] [address] [place], [address] Calcium Normal 7.6-11.0 [facility] Comment on above: Result Comment: Canc elled via OM: Order cancelled - Patient discharged Performed By: #### L 500.2500, L100.0500 ####[facility] [address] [place], [address] CL Normal 98-108 [facility] Comment on above: Result Comment: Canc elled via OM: Order cancelled - Patient discharged Performed By: #### L 500.2500, L100.0500 ####[facility] [address] [place], [address] CO2 Normal 21.0-32.0 [facility] Comment on above: Result Comment: Canc elled via OM: Order cancelled - Patient discharged Performed By: #### L 500.2500, L100.0500 ####[facility] [address] [place], [address] CREAT,SERUM Normal 0.70-1.20 [facility] Comment on above: Result Comment: Canc elled via OM: Order cancelled - Patient discharged Performed By: #### L 500.2500, L100.0500 ####[facility] [address] [place], [address] eGFR Normal >60 [facility] Comment on above: Result Comment: Canc elled via OM: Order cancelled - Patient discharged Performed By: #### L 500.2500, L100.0500 ####[facility] [address] [place], [address] GAP Normal 5-15 [facility] Comment on above: Result Comment: Canc elled via OM: Order cancelled - Patient discharged Performed By: #### L 500.2500, L100.0500 ####[facility] [address] [place], [address] GLU Normal 70-99 [facility] Comment on above: Result Comment: Canc elled via OM: Order cancelled - Patient discharged Performed By: #### L 500.2500, L100.0500 ####[facility] [address] [place], [address] Potassium Normal 3.3-5.1 [facility] Comment on above: Result Comment: Canc elled via OM: Order cancelled - Patient discharged Performed By: #### L 500.2500, L100.0500 ####[facility] [address] [place], [address] Basic Metabolic Profile (BMP) Normal 133-145 [facility] Comment on above: Result Comment: Canc elled via OM: Order cancelled - Patient discharged Performed By: #### L 500.2500, L100.0500 ####[facility] [address] [place], [address] CBC-Complete Blood Cnt No Di ffon 06-24-2024 HCT Normal 40-54 [facility] Comment on above: Result Comment: Canc elled via OM: Order cancelled - Patient discharged Performed By: #### L 500.2500, L100.0500 ####[facility] [address] [place], [address] HGB Normal 13.0-16.5 [facility] Comment on above: Result Comment: Canc elled via OM: Order cancelled - Patient discharged Performed By: #### L 500.2500, L100.0500 ####[facility] [address] [place], [address] MCH Normal 27.0-32.0 [facility] Comment on above: Result Comment: Canc elled via OM: Order cancelled - Patient discharged Performed By: #### L 500.2500, L100.0500 ####[facility] [address] [place], [address] MCHC Normal 32-36 [facility] Comment on above: Result Comment: Canc elled via OM: Order cancelled - Patient discharged Performed By: #### L 500.2500, L100.0500 ####[facility] [address] [place], [address] MCV Normal 80-94 [facility] Comment on above: Result Comment: Canc elled via OM: Order cancelled - Patient discharged Performed By: #### L 500.2500, L100.0500 ####[facility] [address] [place], [address] PLT Normal 150-450 [facility] Comment on above: Result Comment: Canc elled via OM: Order cancelled - Patient discharged Performed By: #### L 500.2500, L100.0500 ####[facility] [address] [place], [address] RBC Normal 4.6-6.2 [facility] Comment on above: Result Comment: Canc elled via OM: Order cancelled - Patient discharged Performed By: #### L 500.2500, L100.0500 ####[facility] [address] [place], [address] RDW CV Normal 11.6-14.6 [facility] Comment on above: Result Comment: Canc elled via OM: Order cancelled - Patient discharged Performed By: #### L 500.2500, L100.0500 ####[facility] [address] [place], [address] RDW SD Normal 35.1-43.9 [facility] Comment on above: Result Comment: Canc elled via OM: Order cancelled - Patient discharged Performed By: #### L 500.2500, L100.0500 ####[facility] [address] [place], [address] WBC Normal 4.4-11.0 [facility] Comment on above: Result Comment: Canc elled via OM: Order cancelled - Patient discharged Performed By: #### L 500.2500, L100.0500 ####[facility] [address] [place], [address] Basic Metabolic Profile (BMP )on 06-23-2024 BUN Normal 4-19 [facility] Comment on above: Result Comment: Canc elled via OM: Order cancelled - Patient discharged Performed By: #### L 500.2500, L100.0500 ####[facility] [address] [place], [address] BUN/CRE Normal 10-20 [facility] Comment on above: Result Comment: Canc elled via OM: Order cancelled - Patient discharged Performed By: #### L 500.2500, L100.0500 ####[facility] [address] [place], [address] Calcium Normal 7.6-11.0 [facility] Comment on above: Result Comment: Canc elled via OM: Order cancelled - Patient discharged Performed By: #### L 500.2500, L100.0500 ####[facility] [address] [place], [address] CL Normal 98-108 [facility] Comment on above: Result Comment: Canc elled via OM: Order cancelled - Patient discharged Performed By: #### L 500.2500, L100.0500 ####[facility] [address] [place], [address] CO2 Normal 21.0-32.0 [facility] Comment on above: Result Comment: Canc elled via OM: Order cancelled - Patient discharged Performed By: #### L 500.2500, L100.0500 ####[facility] [address] [place], [address] CREAT,SERUM Normal 0.70-1.20 [facility] Comment on above: Result Comment: Canc elled via OM: Order cancelled - Patient discharged Performed By: #### L 500.2500, L100.0500 ####[facility] [address] [place], [address] eGFR Normal >60 [facility] Comment on above: Result Comment: Canc elled via OM: Order cancelled - Patient discharged Performed By: #### L 500.2500, L100.0500 ####[facility] [address] [place], [address] GAP Normal 5-15 [facility] Comment on above: Result Comment: Canc elled via OM: Order cancelled - Patient discharged Performed By: #### L 500.2500, L100.0500 ####[facility] [address] [place], [address] GLU Normal 70-99 [facility] Comment on above: Result Comment: Canc elled via OM: Order cancelled - Patient discharged Performed By: #### L 500.2500, L100.0500 ####[facility] [address] [place], [address] Potassium Normal 3.3-5.1 [facility] Comment on above: Result Comment: Canc elled via OM: Order cancelled - Patient discharged Performed By: #### L 500.2500, L100.0500 ####[facility] [address] [place], [address] Basic Metabolic Profile (BMP) Normal 133-145 [facility] Comment on above: Result Comment: Canc elled via OM: Order cancelled - Patient discharged Performed By: #### L 500.2500, L100.0500 ####[facility] [address] [place], [address] CBC-Complete Blood Cnt No Di ffon 06-23-2024 HCT Normal 40-54 [facility] Comment on above: Result Comment: Canc elled via OM: Order cancelled - Patient discharged Performed By: #### L 500.2500, L100.0500 ####[facility] [address] [place], [address] HGB Normal 13.0-16.5 [facility] Comment on above: Result Comment: Canc elled via OM: Order cancelled - Patient discharged Performed By: #### L 500.2500, L100.0500 ####[facility] [address] [place], [address] MCH Normal 27.0-32.0 [facility] Comment on above: Result Comment: Canc elled via OM: Order cancelled - Patient discharged Performed By: #### L 500.2500, L100.0500 ####[facility] [address] [place], [address] MCHC Normal 32-36 [facility] Comment on above: Result Comment: Canc elled via OM: Order cancelled - Patient discharged Performed By: #### L 500.2500, L100.0500 ####[facility] [address] [place], [address] MCV Normal 80-94 [facility] Comment on above: Result Comment: Canc elled via OM: Order cancelled - Patient discharged Performed By: #### L 500.2500, L100.0500 ####[facility] [address] [place], [address] PLT Normal 150-450 [facility] Comment on above: Result Comment: Canc elled via OM: Order cancelled - Patient discharged Performed By: #### L 500.2500, L100.0500 ####[facility] [address] [place], [address] RBC Normal 4.6-6.2 [facility] Comment on above: Result Comment: Canc elled via OM: Order cancelled - Patient discharged Performed By: #### L 500.2500, L100.0500 ####[facility] [address] [place], [address] RDW CV Normal 11.6-14.6 [facility] Comment on above: Result Comment: Canc elled via OM: Order cancelled - Patient discharged Performed By: #### L 500.2500, L100.0500 ####[facility] [address] [place], [address] RDW SD Normal 35.1-43.9 [facility] Comment on above: Result Comment: Canc elled via OM: Order cancelled - Patient discharged Performed By: #### L 500.2500, L100.0500 ####[facility] [address] [place], [address] WBC Normal 4.4-11.0 [facility] Comment on above: Result Comment: Canc elled via OM: Order cancelled - Patient discharged Performed By: #### L 500.2500, L100.0500 ####[facility] [address] [place], [address] Basic Metabolic Profile (BMP )on 06-22-2024 BUN Normal - [facility] Comment on above: Result Comment: Canc elled via OM: Order cancelled - Patient discharged Performed By: #### L 100.0500, L500.2500 ####[facility] [address] [place], [address] BUN/CRE Normal - [facility] Comment on above: Result Comment: Canc elled via OM: Order cancelled - Patient discharged Performed By: #### L 100.0500, L500.2500 ####[facility] [address] [place], [address] Calcium Normal 7.6-11.0 [facility] Comment on above: Result Comment: Canc elled via OM: Order cancelled - Patient discharged Performed By: #### L 100.0500, L500.2500 ####[facility] [address] [place], [address] CL Normal 98-108 [facility] Comment on above: Result Comment: Canc elled via OM: Order cancelled - Patient discharged Performed By: #### L 100.0500, L500.2500 ####[facility] [address] [place], [address] CO2 Normal 21.0-32.0 [facility] Comment on above: Result Comment: Canc elled via OM: Order cancelled - Patient discharged Performed By: #### L 100.0500, L500.2500 ####[facility] [address] [place], [address] CREAT,SERUM Normal 0.70-1.20 [facility] Comment on above: Result Comment: Canc elled via OM: Order cancelled - Patient discharged Performed By: #### L 100.0500, L500.2500 ####[facility] [address] [place], [address] eGFR Normal >60 [facility] Comment on above: Result Comment: Canc elled via OM: Order cancelled - Patient discharged Performed By: #### L 100.0500, L500.2500 ####[facility] [address] [place], [address] GAP Normal 5-15 [facility] Comment on above: Result Comment: Canc elled via OM: Order cancelled - Patient discharged Performed By: #### L 100.0500, L500.2500 ####[facility] [address] [place], [address] GLU Normal 70-99 [facility] Comment on above: Result Comment: Canc elled via OM: Order cancelled - Patient discharged Performed By: #### L 100.0500, L500.2500 ####[facility] [address] [place], [address] Potassium Normal 3.3-5.1 [facility] Comment on above: Result Comment: Canc elled via OM: Order cancelled - Patient discharged Performed By: #### L 100.0500, L500.2500 ####[facility] [address] [place], [address] Basic Metabolic Profile (BMP) Normal 133-145 [facility] Comment on above: Result Comment: Canc elled via OM: Order cancelled - Patient discharged Performed By: #### L 100.0500, L500.2500 ####[facility] [address] [place], [address] CBC-Complete Blood Cnt No Di ffon 06-22-2024 HCT Normal 40-54 [facility] Comment on above: Result Comment: Canc elled via OM: Order cancelled - Patient discharged Performed By: #### L 100.0500, L500.2500 ####[facility] [address] [place], [address] HGB Normal 13.0-16.5 [facility] Comment on above: Result Comment: Canc elled via OM: Order cancelled - Patient discharged Performed By: #### L 100.0500, L500.2500 ####[facility] [address] [place], [address] MCH Normal 27.0-32.0 [facility] Comment on above: Result Comment: Canc elled via OM: Order cancelled - Patient discharged Performed By: #### L 100.0500, L500.2500 ####[facility] [address] [place], [address] MCHC Normal 32-36 [facility] Comment on above: Result Comment: Canc elled via OM: Order cancelled - Patient discharged Performed By: #### L 100.0500, L500.2500 ####[facility] [address] [place], [address] MCV Normal 80-94 [facility] Comment on above: Result Comment: Canc elled via OM: Order cancelled - Patient discharged Performed By: #### L 100.0500, L500.2500 ####[facility] [address] [place], [address] PLT Normal 150-450 [facility] Comment on above: Result Comment: Canc elled via OM: Order cancelled - Patient discharged Performed By: #### L 100.0500, L500.2500 ####[facility] [address] [place], [address] RBC Normal 4.6-6.2 [facility] Comment on above: Result Comment: Canc elled via OM: Order cancelled - Patient discharged Performed By: #### L 100.0500, L500.2500 ####[facility] [address] [place], [address] RDW CV Normal 11.6-14.6 [facility] Comment on above: Result Comment: Canc elled via OM: Order cancelled - Patient discharged Performed By: #### L 100.0500, L500.2500 ####[facility] [address] [place], [address] RDW SD Normal 35.1-43.9 [facility] Comment on above: Result Comment: Canc elled via OM: Order cancelled - Patient discharged Performed By: #### L 100.0500, L500.2500 ####[facility] [address] [place], [address] WBC Normal 4.4-11.0 [facility] Comment on above: Result Comment: Canc elled via OM: Order cancelled - Patient discharged Performed By: #### L 100.0500, L500.2500 ####[facility] [address] [place], [address] Basic Metabolic Profile (BMP )on 06-21-2024 BUN Normal 4-19 [facility] Comment on above: Result Comment: Canc elled via OM: Order cancelled - Patient discharged Performed By: #### L 100.0500, L500.2500 ####[facility] [address] [place], [address] BUN/CRE Normal 10-20 [facility] Comment on above: Result Comment: Canc elled via OM: Order cancelled - Patient discharged Performed By: #### L 100.0500, L500.2500 ####[facility] [address] [place], [address] Calcium Normal 7.6-11.0 [facility] Comment on above: Result Comment: Canc elled via OM: Order cancelled - Patient discharged Performed By: #### L 100.0500, L500.2500 ####[facility] [address] [place], [address] CL Normal 98-108 [facility] Comment on above: Result Comment: Canc elled via OM: Order cancelled - Patient discharged Performed By: #### L 100.0500, L500.2500 ####[facility] [address] [place], [address] CO2 Normal 21.0-32.0 [facility] Comment on above: Result Comment: Canc elled via OM: Order cancelled - Patient discharged Performed By: #### L 100.0500, L500.2500 ####[facility] [address] [place], [address] CREAT,SERUM Normal 0.70-1.20 [facility] Comment on above: Result Comment: Canc elled via OM: Order cancelled - Patient discharged Performed By: #### L 100.0500, L500.2500 ####[facility] [address] [place], [address] eGFR Normal >60 [facility] Comment on above: Result Comment: Canc elled via OM: Order cancelled - Patient discharged Performed By: #### L 100.0500, L500.2500 ####[facility] [address] [place], [address] GAP Normal 5-15 [facility] Comment on above: Result Comment: Canc elled via OM: Order cancelled - Patient discharged Performed By: #### L 100.0500, L500.2500 ####[facility] [address] [place], [address] GLU Normal 70-99 [facility] Comment on above: Result Comment: Canc elled via OM: Order cancelled - Patient discharged Performed By: #### L 100.0500, L500.2500 ####[facility] [address] [place], [address] Potassium Normal 3.3-5.1 [facility] Comment on above: Result Comment: Canc elled via OM: Order cancelled - Patient discharged Performed By: #### L 100.0500, L500.2500 ####[facility] [address] [place], [address] Basic Metabolic Profile (BMP) Normal 133-145 [facility] Comment on above: Result Comment: Canc elled via OM: Order cancelled - Patient discharged Performed By: #### L 100.0500, L500.2500 ####[facility] [address] [place], [address] CBC-Complete Blood Cnt No Di ffon 06-21-2024 HCT Normal 40-54 [facility] Comment on above: Result Comment: Canc elled via OM: Order cancelled - Patient discharged Performed By: #### L 100.0500, L500.2500 ####[facility] [address] [place], [address] HGB Normal 13.0-16.5 [facility] Comment on above: Result Comment: Canc elled via OM: Order cancelled - Patient discharged Performed By: #### L 100.0500, L500.2500 ####[facility] [address] [place], [address] MCH Normal 27.0-32.0 [facility] Comment on above: Result Comment: Canc elled via OM: Order cancelled - Patient discharged Performed By: #### L 100.0500, L500.2500 ####[facility] [address] [place], [address] MCHC Normal 32-36 [facility] Comment on above: Result Comment: Canc elled via OM: Order cancelled - Patient discharged Performed By: #### L 100.0500, L500.2500 ####[facility] [address] [place], [address] MCV Normal 80-94 [facility] Comment on above: Result Comment: Canc elled via OM: Order cancelled - Patient discharged Performed By: #### L 100.0500, L500.2500 ####[facility] [address] [place], [address] PLT Normal 150-450 [facility] Comment on above: Result Comment: Canc elled via OM: Order cancelled - Patient discharged Performed By: #### L 100.0500, L500.2500 ####[facility] [address] [place], [address] RBC Normal 4.6-6.2 [facility] Comment on above: Result Comment: Canc elled via OM: Order cancelled - Patient discharged Performed By: #### L 100.0500, L500.2500 ####[facility] [address] [place], [address] RDW CV Normal 11.6-14.6 [facility] Comment on above: Result Comment: Canc elled via OM: Order cancelled - Patient discharged Performed By: #### L 100.0500, L500.2500 ####[facility] [address] [place], [address] RDW SD Normal 35.1-43.9 [facility] Comment on above: Result Comment: Canc elled via OM: Order cancelled - Patient discharged Performed By: #### L 100.0500, L500.2500 ####[facility] [address] [place], [address] WBC Normal 4.4-11.0 [facility] Comment on above: Result Comment: Canc elled via OM: Order cancelled - Patient discharged Performed By: #### L 100.0500, L500.2500 ####[facility] [address] [place], [address] Anion gap in Serum or Plasma Ordered By: Donna Wolff on 06-20-2024 Anion gap [Moles/Vol] 14 mmol/L 5-15 [facility] BUN/creatinine ratioOrdered By: Donna Wolff on 06-20-2024 Urea nitrogen/Creatinine [Mass ratio] 27.2 mg/mg High 10-20 [facility] Basic Metabolic Profile (BMP )on 06-20-2024 BUN/CRE 27.2 RATIO High 10-20 [facility] Comment on above: Performed By: #### L 500.2500, L100.0500 ####[facility] [address] [place], [address] Calcium [Mass/Vol] 9.5 mg/dL Normal 7.6-11.0 [facility] Comment on above: Performed By: #### L 500.2500, L100.0500 ####[facility] [address] [place], [address] Chloride [Moles/Vol] 100 mmol/L Normal 98-108 [facility] Comment on above: Performed By: #### L 500.2500, L100.0500 ####[facility] [address] [place], [address] CO2 [Moles/Vol] 24.8 mmol/L Normal 21.0-32.0 [facility] Comment on above: Performed By: #### L 500.2500, L100.0500 ####[facility] [address] [place], [address] Creatinine [Mass/Vol] 1.07 mg/dL Normal 0.70-1.20 [facility] Comment on above: Performed By: #### L 500.2500, L100.0500 ####[facility] [address] [place], [address] ECRCL 74.28 ml/min Normal 50-250 [facility] Comment on above: Performed By: #### L 500.2500, L100.0500 ####[facility] [address] [place], [address] GAP 14 Normal 5-15 [facility] Comment on above: Performed By: #### L 500.2500, L100.0500 ####[facility] [address] [place], [address] GFR/1.73 sq M.predicted among non-blacks MDRD (S/P/Bld) [Vol rate/Area] 77 mL/min/{1.73_m2} Normal >60 [facility] Comment on above: Result Comment: mL/m in/1.73m2 CKD-EPI Creatinine Equation (2020) Performed By: #### L 500.2500, L100.0500 ####[facility] [address] [place], [address] Glucose [Mass/Vol] 110 mg/dL High 70-99 [facility] Comment on above: Performed By: #### L 500.2500, L100.0500 ####[facility] [address] [place], [address] Potassium [Moles/Vol] 3.8 mmol/L Normal 3.3-5.1 [facility] Comment on above: Performed By: #### L 500.2500, L100.0500 ####[facility] [address] [place], [address] Sodium [Moles/Vol] 138 mmol/L Normal 133-145 [facility] Comment on above: Performed By: #### L 500.2500, L100.0500 ####[facility] [address] [place], [address] Urea nitrogen [Mass/Vol] 29 mg/dL High 4-19 [facility] Comment on above: Performed By: #### L 500.2500, L100.0500 ####[facility] [address] [place], [address] Bedside Glucoseon 06-20-2024 FINGERSTICK GLU 127 mg/dL High 74-106 [facility] Comment on above: Result Comment: SNEHA DUNCAN OF PATIENT CARE PER NURSING PROTOCOL Performed By: #### L 501.080 ####[facility] [address] [place], [address] CBC-Complete Blood Cnt No Di ffon 06-20-2024 Erythrocyte distribution width (RBC) [Ratio] 13.0 % Normal 11.6-14.6 [facility] Comment on above: Performed By: #### L 500.2500, L100.0500 ####[facility] [address] [place], [address] Hematocrit (Bld) [Volume fraction] 50.5 % Normal 40-54 [facility] Comment on above: Performed By: #### L 500.2500, L100.0500 ####[facility] [address] [place], [address] Hemoglobin (Bld) [Mass/Vol] 16.8 g/dL High 13.0-16.5 [facility] Comment on above: Performed By: #### L 500.2500, L100.0500 ####[facility] [address] [place], [address] MCH (RBC) [Entitic mass] 30.8 pg Normal 27.0-32.0 [facility] Comment on above: Performed By: #### L 500.2500, L100.0500 ####[facility] [address] [place], [address] MCHC (RBC) [Mass/Vol] 33.3 g/dL Normal 32-36 [facility] Comment on above: Performed By: #### L 500.2500, L100.0500 ####[facility] [address] [place], [address] MCV (RBC) [Entitic vol] 92.5 fL Normal 80-94 [facility] Comment on above: Performed By: #### L 500.2500, L100.0500 ####[facility] [address] [place], [address] Platelet mean volume (Bld) [Entitic vol] 10.1 fL Normal 6.2-12.0 [facility] Comment on above: Performed By: #### L 500.2500, L100.0500 ####[facility] [address] [place], [address] Platelets (Bld) [#/Vol] 295 10*3/uL Normal 150-450 [facility] Comment on above: Performed By: #### L 500.2500, L100.0500 ####[facility] [address] [place], [address] RBC (Bld) [#/Vol] 5.46 10*6/uL Normal 4.6-6.2 [facility] Comment on above: Performed By: #### L 500.2500, L100.0500 ####[facility] [address] [place], [address] RDW SD 43.8 fl Normal 35.1-43.9 [facility] Comment on above: Performed By: #### L 500.2500, L100.0500 ####[facility] [address] [place], [address] WBC (Bld) [#/Vol] 14.2 10*3/uL High 4.4-11.0 [facility] Comment on above: Performed By: #### L 500.2500, L100.0500 ####[facility] [address] [place], [address] Carbon dioxide, total [Moles /volume] in Central venous bloodOrdered By: Donna Wolff on 06-20-2024 CO2 [Moles/Vol] 24.8 mmol/L 21.0-32.0 [facility] Chloride assayOrdered By: Nilson Wolff on 06-20-2024 Chloride [Moles/Vol] 100 mmol/L 98-108 [facility] Discharge Instructionon 06-04 Discharge Instruction Normal [facility] Erythrocyte distribution wid th ratioOrdered By: Donna Wolff on 06-20-2024 Erythrocyte distribution width (RBC) [Ratio] 13.0 % 11.6-14.6 [facility] Erythrocyte distribution wid th standard deviationOrdered By: Donna Wolff on 06-20-2024 Erythrocyte distribution width (RBC) [Ratio] 43.8 fl 35.1-43.9 [facility] Glomerular filtration rate ( GFR) estimation/1.73 sq m using serum, plasma, or whole bOrdered By: Donna Wolff on 06-20-2024 GFR/1.73 sq M.predicted among non-blacks MDRD (S/P/Bld) [Vol rate/Area] 77 mL/min/{1.73_m2} >60 [facility] deOrdered By: Donna Wolff on 06-20-2024 Glucose [Mass/Vol] 127 mg/dL High 74-106 [facility] Hematocrit Auto (Bld) [Volum e fraction]Ordered By: Donna Wolff on 06-20-2024 Hematocrit (Bld) [Volume fraction] 50.5 % 40-54 [facility] Hemoglobin measurementOrdere d By: Donna Wolff on 06-20-2024 Hemoglobin (Bld) [Mass/Vol] 16.8 g/dL High 13.0-16.5 [facility] MCV (mean corpuscular volume ) determinationOrdered By: Donna Wolff on 06-20-2024 MCV (RBC) [Entitic vol] 92.5 fL 80-94 [facility] Mean corpuscular hemoglobin (MCH) determinationOrdered By: Donna Wolff on 06-20-2024 MCH (RBC) [Entitic mass] 30.8 pg 27.0-32.0 [facility] Platelet countOrdered By: Nilson Wolff on 06-20-2024 Platelets (Bld) [#/Vol] 295 10*3/uL 150-450 [facility] Potassium measurement (mass/ volume)Ordered By: Donna Wolff on 06-20-2024 Potassium (Unsp spec) [Mass/Vol] 3.8 mmol/L 3.3-5.1 [facility] RBC Auto (Bld) [#/Vol]Ordere d By: Donna Wolff on 06-20-2024 RBC (Bld) [#/Vol] 5.46 10*6/uL 4.6-6.2 [facility] Serum creatinine measurement (mass/volume)Ordered By: Donna Wolff on 06-20-2024 Creatinine [Mass/Vol] 1.07 mg/dL 0.70-1.20 [facility] Serum glucose measurement (m ass/volume)Ordered By: Donna Wolff on 06-20-2024 Glucose [Mass/Vol] 110 mg/dL High 70-99 [facility] Serum or plasma calcium brneda urement (mass/volume)Ordered By: Donna Wolff on 06-20-2024 Calcium [Mass/Vol] 9.5 mg/dL 7.6-11.0 [facility] Serum or plasma urea nitroge n measurement (mass/volume)Ordered By: Donna Wolff on 06-20-2024 Urea nitrogen [Mass/Vol] 29 mg/dL High 4-19 [facility] Sodium levelOrdered By: Gretta Wolff on 06-20-2024 Sodium [Moles/Vol] 138 mmol/L 133-145 [facility] Stress Reporton 06-20-2024 Stress Report Normal [facility] White blood cell (WBC) count Ordered By: Donna Wolff on 06-20-2024 WBC (Bld) [#/Vol] 14.2 10*3/uL High 4.4-11.0 [facility] Absolute lymphocyte countOrd ered By: Steve Donald on 06-19-2024 Lymphocytes Auto (Unsp spec) [#/Vol] 1.12 10*3/uL 0.83-4.51 [facility] Automated lymphocyte count a s percentage of total leukocytesOrdered By: Steve Donald on 06-19-2024 Lymphocytes/100 WBC Auto (Unsp spec) 9.8 % Low 19-41 [facility] Basophil percentageOrdered B y: Steve Donald on 06-19-2024 Basophils/100 WBC (Bld) 0.1 % 0-1 [facility] Bedside Glucoseon 06-19-2024 FINGERSTICK GLU 220 mg/dL High 74-106 [facility] Comment on above: Result Comment: SNEHA GEMENT OF PATIENT CARE PER NURSING PROTOCOL Performed By: #### L 501.080 ####[facility] [address] [place], [address] FINGERSTICK GLU 431 mg/dL High [address] [place] [address] Comment on above: Result Comment: SNEHA GEMENT OF PATIENT CARE PER NURSING PROTOCOL Performed By: #### L 501.080 ####[facility] [address] [place], [address] FINGERSTICK GLU 387 mg/dL High [address] [place] [address] Comment on above: Result Comment: SNEHA GEMENT OF PATIENT CARE PER NURSING PROTOCOL Performed By: #### L 501.080 ####[facility] [address] [place], [address] FINGERSTICK GLU 292 mg/dL High [address] [place] [address] Comment on above: Result Comment: SNEHA GEMENT OF PATIENT CARE PER NURSING PROTOCOL Performed By: #### L 501.080 ####[facility] [address] [place], [address] Bilirubin, totalOrdered By: Steve Donald on 06-19-2024 Bilirubin [Mass/Vol] 0.63 mg/dL 0.00-1.30 [facility] CBC W/Diff, Automatedon 06-04 Absolute Lymph 1.12 X10 3/uL Normal 0.83-4.51 [facility] Comment on above: Performed By: #### L 501.9985, L500.4050, L501.2300, L100.0100 ####[facility] [address] [place], [address] Absolute Neut 9.8 X10 3/uL High 2.0-7.7 [facility] Comment on above: Performed By: #### L 501.9985, L500.4050, L501.2300, L100.0100 ####[facility] [address] [place], [address] Basophils/100 WBC (Bld) 0.1 % Normal 0-1 [facility] Comment on above: Performed By: #### L 501.9985, L500.4050, L501.2300, L100.0100 ####[facility] [address] [place], [address] Eosinophils/100 WBC (Bld) 0.0 % Normal 0-5 [facility] Comment on above: Performed By: #### L 501.9985, L500.4050, L501.2300, L100.0100 ####[facility] [address] [place], [address] Erythrocyte distribution width (RBC) [Ratio] 12.8 % Normal 11.6-14.6 [facility] Comment on above: Performed By: #### L 501.9985, L500.4050, L501.2300, L100.0100 ####[facility] [address] [place], [address] Hematocrit (Bld) [Volume fraction] 49.9 % Normal 40-54 [facility] Comment on above: Performed By: #### L 501.9985, L500.4050, L501.2300, L100.0100 ####[facility] [address] [place], [address] Hemoglobin (Bld) [Mass/Vol] 16.8 g/dL High 13.0-16.5 [facility] Comment on above: Performed By: #### L 501.9985, L500.4050, L501.2300, L100.0100 ####[facility] [address] [place], [address] IG% 0.700 Normal 0.0-0.9 [facility] Comment on above: Result Comment: IG% - Immature Granulocytes (promyelocytes, myelocytes andmetamyelocytes) > 1% indicates that a LEFT SHIFT is Present. Performed By: #### L 501.9985, L500.4050, L501.2300, L100.0100 ####[facility] [address] [place], [address] Lymphocytes/100 WBC (Bld) 9.8 % Low 19-41 [facility] Comment on above: Performed By: #### L 501.9985, L500.4050, L501.2300, L100.0100 ####[facility] [address] [place], [address] MCH (RBC) [Entitic mass] 31.3 pg Normal 27.0-32.0 [facility] Comment on above: Performed By: #### L 501.9985, L500.4050, L501.2300, L100.0100 ####[facility] [address] [place], [address] MCHC (RBC) [Mass/Vol] 33.7 g/dL Normal 32-36 [facility] Comment on above: Performed By: #### L 501.9985, L500.4050, L501.2300, L100.0100 ####[facility] [address] [place], [address] MCV (RBC) [Entitic vol] 92.9 fL Normal 80-94 [facility] Comment on above: Performed By: #### L 501.9985, L500.4050, L501.2300, L100.0100 ####[facility] [address] [place], [address] Monocytes/100 WBC (Bld) 3.2 % Normal 0-10 [facility] Comment on above: Performed By: #### L 501.9985, L500.4050, L501.2300, L100.0100 ####[facility] [address] [place], [address] Neutrophils/100 WBC (Bld) 86.2 % High 47-70 [facility] Comment on above: Performed By: #### L 501.9985, L500.4050, L501.2300, L100.0100 ####[facility] [address] [place], [address] Nucleated RBC (Bld) [#/Vol] 0 10*3/uL Normal 0-5 [facility] Comment on above: Performed By: #### L 501.9985, L500.4050, L501.2300, L100.0100 ####[facility] [address] [place], [address] Platelet mean volume (Bld) [Entitic vol] 10.4 fL Normal 6.2-12.0 [facility] Comment on above: Performed By: #### L 501.9985, L500.4050, L501.2300, L100.0100 ####[facility] [address] [place], [address] Platelets (Bld) [#/Vol] 290 10*3/uL Normal 150-450 [facility] Comment on above: Performed By: #### L 501.9985, L500.4050, L501.2300, L100.0100 ####[facility] [address] [place], [address] RBC (Bld) [#/Vol] 5.37 10*6/uL Normal 4.6-6.2 [facility] Comment on above: Performed By: #### L 501.9985, L500.4050, L501.2300, L100.0100 ####[facility] [address] [place], [address] RDW SD 43.8 fl Normal 35.1-43.9 [facility] Comment on above: Performed By: #### L 501.9985, L500.4050, L501.2300, L100.0100 ####[facility] [address] [place], [address] WBC (Bld) [#/Vol] 11.4 10*3/uL High 4.4-11.0 [facility] Comment on above: Performed By: #### L 501.9985, L500.4050, L501.2300, L100.0100 ####[facility] [address] [place], [address] Chest 1 View (Portable)on Chest 1 View (Portable) Normal [facility] Comprehensive Metabolic Prof ilon 06-19-2024 GAP 17 High 5-15 [facility] Comment on above: Performed By: #### L 501.9985, L500.4050, L501.2300, L100.0100 ####[facility] [address] [place], [address] Albumin [Mass/Vol] 4.1 g/dL Normal 3.4-4.8 [facility] Comment on above: Performed By: #### L 501.9985, L500.4050, L501.2300, L100.0100 ####[facility] [address] [place], [address] Albumin/Globulin [Mass ratio] 1.2 {ratio} Normal 0.9-2.4 [facility] Comment on above: Performed By: #### L 501.9985, L500.4050, L501.2300, L100.0100 ####[facility] [address] [place], [address] ALK PHOS 89 U/L Normal 40-129 [facility] Comment on above: Performed By: #### L 501.9985, L500.4050, L501.2300, L100.0100 ####[facility] [address] [place], [address] ALT [Catalytic activity/Vol] 38 U/L Normal <=46 [facility] Comment on above: Performed By: #### L 501.9985, L500.4050, L501.2300, L100.0100 ####[facility] [address] [place], [address] AST [Catalytic activity/Vol] 26 U/L Normal <=37 [facility] Comment on above: Performed By: #### L 501.9985, L500.4050, L501.2300, L100.0100 ####[facility] [address] [place], [address] Bilirubin [Mass/Vol] 0.63 mg/dL Normal 0.00-1.30 [facility] Comment on above: Performed By: #### L 501.9985, L500.4050, L501.2300, L100.0100 ####[facility] [address] [place], [address] BUN/CRE 24.5 RATIO High 10-20 [facility] Comment on above: Performed By: #### L 501.9985, L500.4050, L501.2300, L100.0100 ####[facility] [address] [place], [address] Calcium [Mass/Vol] 9.6 mg/dL Normal 7.6-11.0 [facility] Comment on above: Performed By: #### L 501.9985, L500.4050, L501.2300, L100.0100 ####[facility] [address] [place], [address] Chloride [Moles/Vol] 97 mmol/L Low 98-108 [facility] Comment on above: Performed By: #### L 501.9985, L500.4050, L501.2300, L100.0100 ####[facility] [address] [place], [address] CO2 [Moles/Vol] 19.8 mmol/L Low 21.0-32.0 [facility] Comment on above: Performed By: #### L 501.9985, L500.4050, L501.2300, L100.0100 ####[facility] [address] [place], [address] Creatinine [Mass/Vol] 1.12 mg/dL Normal 0.70-1.20 [facility] Comment on above: Performed By: #### L 501.9985, L500.4050, L501.2300, L100.0100 ####[facility] [address] [place], [address] ECRCL 70.97 ml/min Normal 50-250 [facility] Comment on above: Performed By: #### L 501.9985, L500.4050, L501.2300, L100.0100 ####[facility] [address] [place], [address] GFR/1.73 sq M.predicted among non-blacks MDRD (S/P/Bld) [Vol rate/Area] 73 mL/min/{1.73_m2} Normal >60 [facility] Comment on above: Result Comment: mL/m in/1.73m2 CKD-EPI Creatinine Equation (2020) Performed By: #### L 501.9985, L500.4050, L501.2300, L100.0100 ####[facility] [address] [place], [address] Globulin (S) [Mass/Vol] 3.5 g/dL Normal 2.2-4.2 [facility] Comment on above: Performed By: #### L 501.9985, L500.4050, L501.2300, L100.0100 ####[facility] [address] [place], [address] Glucose [Mass/Vol] 324 mg/dL High 70-99 [facility] Comment on above: Performed By: #### L 501.9985, L500.4050, L501.2300, L100.0100 ####[facility] [address] [place], [address] Potassium [Moles/Vol] 4.3 mmol/L Normal 3.3-5.1 [facility] Comment on above: Performed By: #### L 501.9985, L500.4050, L501.2300, L100.0100 ####[facility] [address] [place], [address] Sodium [Moles/Vol] 134 mmol/L Normal 133-145 [facility] Comment on above: Performed By: #### L 501.9985, L500.4050, L501.2300, L100.0100 ####[facility] [address] [place], [address] T PROT 7.6 g/dL Normal 5.9-8.4 [facility] Comment on above: Performed By: #### L 501.9985, L500.4050, L501.2300, L100.0100 ####[facility] [address] [place], [address] Urea nitrogen [Mass/Vol] 27 mg/dL High 4-19 [facility] Comment on above: Performed By: #### L 501.9985, L500.4050, L501.2300, L100.0100 ####[facility] [address] [place], [address] Eosinophil percentageOrdered By: Steve Donald on 06-19-2024 Eosinophils/100 WBC (Bld) 0.0 % 0-5 [facility] Hemoglobin A1con 06-19-2024 HbA1c (Bld) [Mass fraction] 12.4 % Normal <=5.6 [facility] Comment on above: Performed By: #### L 501.9985, L500.4050, L501.2300, L100.0100 ####[facility] [address] [place], [place], [address] Hemoglobin A1c percentageOrd ered By: Steve Donald on 06-19-2024 HbA1c (Bld) [Mass fraction] 12.4 % >5.7 [facility] Immature granulocytes/100 WB C Auto (Bld)Ordered By: Steve Donald on 06-19-2024 Immature granulocytes/100 WBC (Bld) 0.700 % 0.0-0.9 [facility] Monocyte percentageOrdered B y: Steve Donald on 06-19-2024 Monocytes/100 WBC (Bld) 3.2 % 0-10 [facility] Neutrophil percentageOrdered By: Steve Donald on 06-19-2024 Neutrophils/100 WBC (Bld) 86.2 % High 47-70 [facility] No Panel InformationOrdered By: Steve Donald on 06-19-2024 26 U/L <38 [facility] Phosphoruson 06-19-2024 Phosphate [Mass/Vol] 4.4 mg/dL Normal 2.7-4.5 [facility] Comment on above: Performed By: #### L 501.9985, L500.4050, L501.2300, L100.0100 ####[facility] [address] [facility] [place], [place], [address] Serum globulin measurementOr dered By: Steve Donald on 06-19-2024 Globulin (S) [Mass/Vol] 3.5 g/dL 2.2-4.2 [facility] Serum or plasma alanine martino otransferase (ALT) measurementOrdered By: Steve Donald on 06-19-2024 ALT [Catalytic activity/Vol] 38 U/L <47 [facility] Serum or plasma albumin brenda urement (mass/volume)Ordered By: Steve Donald on 06-19-2024 Albumin [Mass/Vol] 4.1 g/dL 3.4-4.8 [facility] Serum or plasma albumin/glob ulin mass ratioOrdered By: Steve Donald on 06-19-2024 Albumin/Globulin [Mass ratio] 1.2 {ratio} 0.9-2.4 [facility] Serum or plasma alkaline yulia sphatase measurementOrdered By: Steve Donald on 06-19-2024 ALP [Catalytic activity/Vol] 89 U/L 40-129 [facility] Total proteinOrdered By: Sidney Donald on 06-19-2024 Protein [Mass/Vol] 7.6 g/dL 5.9-8.4 [facility] Assessment of wrist artery p atency prior to arterial punctureOrdered By: Steve Donald on 06-18-2024 Arterial patency Wrist artery --pre arterial puncture Positive [facility] Bedside Glucoseon 06-18-2024 FINGERSTICK GLU 434 mg/dL High [address] [place] [address] Comment on above: Result Comment: SNEHA GEMENT OF PATIENT CARE PER NURSING PROTOCOL Performed By: #### L 501.080 ####[facility] [address] [facility] [address] FINGERSTICK GLU 429 mg/dL High [address] [place] [address] Comment on above: Result Comment: Dr Manjit solis FollowedMANAGEMENT OF PATIENT CARE PER NURSING PROTOCOL Performed By: #### L 501.080 ####[facility] [address] [facility] [address] FINGERSTICK GLU 321 mg/dL High [address] [place] [address] Comment on above: Result Comment: SNEHA GEMENT OF PATIENT CARE PER NURSING PROTOCOL Performed By: #### L 501.080 ####[facility] [address] [facility] [address] FINGERSTICK GLU 282 mg/dL High [address] [place] [address] Comment on above: Result Comment: SNEHA GEMENT OF PATIENT CARE PER NURSING PROTOCOL Performed By: #### L 501.080 ####[facility] [address] [place], [address] Bilirubin Test strip Ql (U)O rdered By: Steve Donald on 06-18-2024 Bilirubin Ql (U) Negative Negative [facility] Blood Gases by CPSon 025 MOY TEST Positive Normal [facility] Comment on above: Performed By: #### L 9000.0800 ####[facility] [address] [place], [address] Base excess Calc (Bld) [Moles/Vol] 2 mmol/L Normal -2 to +2 [facility] Comment on above: Performed By: #### L 9000.0800 ####[facility] [address] [place], [address] Blood Gas Type ART Normal [facility] Comment on above: Performed By: #### L 9000.0800 ####[facility] [address] [place], [address] CO2 [Moles/Vol] 28 mmol/L Normal [facility] Comment on above: Performed By: #### L 9000.0800 ####[facility] [address] [place], [address] Comment 17/11 12 30% Normal [facility] Comment on above: Performed By: #### L 9000.0800 ####[facility] [address] [place], [address] FI02 30.0 Normal [facility] Comment on above: Performed By: #### L 9000.0800 ####[facility] [address] [place], [address] HCO3 (Bld) [Moles/Vol] 26.7 mmol/L High 22-26 [facility] Comment on above: Performed By: #### L 9000.0800 ####[facility] [address] [place], [address] Mode Not entered Normal [facility] Comment on above: Performed By: #### L 9000.0800 ####[facility] [address] [place], [address] O2 Delivery Dev BiPAP Normal [facility] Comment on above: Performed By: #### L 9000.0800 ####[facility] [address] [place], [address] pCO2 41.5 mmHg Normal 35-45 [facility] Comment on above: Performed By: #### L 9000.0800 ####[facility] [address] [place], [address] pH (Bld) 7.42 [pH] Normal 7.35-7.45 [facility] Comment on above: Performed By: #### L 9000.0800 ####[facility] [address] [place], [address] PO2 73 mmHG Low 75-100 [facility] Comment on above: Performed By: #### L 9000.0800 ####[facility] [address] [place], [address] SITE R Radial Normal [facility] Comment on above: Performed By: #### L 9000.0800 ####[facility] [address] [place], [address] SO2 95 Normal 95-99 [facility] Comment on above: Performed By: #### L 9000.0800 ####[facility] [address] [place], [address] Blood base excess determinat ionOrdered By: Steve Donald on 06-18-2024 Base excess Calc (BldV) [Moles/Vol] 2 mmol/L -2-2 [facility] Blood bicarbonate measuremen tOrdered By: Steve Donald on 06-18-2024 HCO3 (Bld) [Moles/Vol] 26.7 mmol/L High 22-26 [facility] CTA Chest W/WO Contraston CTA Chest W/WO Contrast Normal [facility] Consultation - Cardiologyon 06-18-2024 Consultation - Cardiology Normal [facility] Echo Complete W/ Contraston 06-18-2024 Echo Complete W/ Contrast Normal [facility] Emergency Department Summary on 06-18-2024 Emergency Department Summary Normal [facility] H AND P Exam - Hospitaliston 06-18-2024 H&P Exam - Hospitalist Normal [facility] Influenza virus A and B and SARS-CoV-2 (COVID-19) and Respiratory syncytial virus RNAOrdered By: Jevon Osorio on 06-18-2024 SARS-CoV-2 (COVID-19) RNA HAYDER+probe Ql (Unsp spec) [facility] Ketones Test strip Ql (U)Ord ered By: Steve Donald on 06-18-2024 Ketones Ql (U) Negative Negative [facility] L499.0042on 06-18-2024 Trop T High Sen 84 ng/L Invalid Interpretation Code <=22 [facility] Comment on above: Result Comment: Crit ical Result(s) Called at: 0219 by:??NBURNS TO EFINKResults read back by same. Performed By: #### L 499.0042 ####[facility] [address] [place], [place], [address] L499.0043on 06-18-2024 Trop T High Sen 88 ng/L Invalid Interpretation Code <=22 [facility] Comment on above: Result Comment: Crit ical Result(s) Called at 0334: by: NBURNS TOEAFFOLTER??Results read back by same. Performed By: #### L 499.0043 ####[facility] [address] [facility] [place], [address] L503.7505on 06-18-2024 Natriuretic peptide B (Bld) [Mass/Vol] 2490 pg/mL High <=900 [facility] Comment on above: Result Comment: Hear t Failure Unlikely: < 300 pg/mLHeart Failure Likely< 50 Years: > 450 pg/mL50-75 Years: > 900 pg/mL>75 Years: > 1800 pg/mL Performed By: #### L 503.7505 ####[facility] [address] [place], [address] M100.678on 06-18-2024 M100.678 SARS-CoV-2 (COVID 19 ) Negative INFLUENZA A Negative INFLUENZA B Negative RSV PCR Negative Normal [facility] Comment on above: Performed By: #### M 100.678 ####[facility] [address] [place], [address] Magnesiumon 06-18-2024 Magnesium [Mass/Vol] 2.0 mg/dL Normal 1.5-2.2 [facility] Comment on above: Performed By: #### L 501.5200, L501.9520 ####[facility] [address] [place], [address] Magnesium measurement (mass/ volume)Ordered By: Steve Donald on 06-18-2024 Magnesium (Unsp spec) [Mass/Vol] 2.0 mg/dL 1.5-2.2 [facility] Measurement, pHOrdered By: Jovana Donald on 06-18-2024 pH (Unsp spec) 7.42 [pH] 7.35-7.45 [facility] Mucus LM Ql (Urine sed)Order ed By: Steve Donald on 06-18-2024 Mucus Ql (Urine sed) 0 SEEN /hpf [facility] Nitrite Test strip Ql (U)Ord ered By: Steve Donald on 06-18-2024 Nitrite Ql (U) Negative Negative [facility] No Panel InformationOrdered By: Steve Donald on 06-18-2024 ART [facility] R Radial [facility] Not entered [facility] BiPAP [facility] 17/11 12 30% [facility] Protein Test strip Ql (U)Ord ered By: Steve Donald on 06-18-2024 Protein Ql (U) Negative Negative [facility] RESPIRATORY PANEL MOLECULARo n 06-18-2024 RP PANEL Normal [facility] Comment on above: Performed By: #### M 100.638 ####[facility] [address] [place], [address] Respiratory pathogens detect ion panel by molecular detection methodOrdered By: Steve Donald on 06-18-2024 Respiratory pathogens DNA and RNA panel HAYDER+probe (Resp) [facility] Squamous epithelial cells de tection in urine sediment by light microscopyOrdered By: Steve Donald on 06-18-2024 Epithelial cells.squamous LM Ql (Urine sed) 0-5 SEEN /hpf 0-5 [facility] TSH DL <= 0.005 mIU/L QnOrde red By: Steve Donald on 06-18-2024 TSH Qn 0.897 uIU/mL 0.300-4.200 [facility] Thyroid Stim Hormone (TSH)on 06-18-2024 TSH 0.897 uIU/mL Normal 0.300-4.200 [facility] Comment on above: Performed By: #### L 501.5200, L501.9520 ####[facility] [address] [place], [address] Total carbon dioxide measure mentOrdered By: Steve Donald on 06-18-2024 CO2 [Moles/Vol] 28 mmol/L [facility] Troponin T.cardiac [Mass/vol ume] in Serum or Plasma by High sensitivity methodOrdered By: Jevon Osorio on 06-18-2024 Troponin T.cardiac High sensitivity method [Mass/Vol] 88 ng/L High <22 [facility] Troponin T.cardiac High sensitivity method [Mass/Vol] 84 ng/L High <22 [facility] Urinalysis, Completeon 06-18 BACTERIA RARE Normal None Seen [facility] Comment on above: Order Comment: CLEAN CATCH Performed By: #### L 400.0001 ####[facility] [address] [place], [address] EPI,SQUAMOUS 0-5 SEEN Normal 0-5 [facility] Comment on above: Order Comment: CLEAN CATCH Performed By: #### L 400.0001 ####[facility] [address] [place], [address] RBC 0 SEEN Normal 0-5 [facility] Comment on above: Order Comment: CLEAN CATCH Performed By: #### L 400.0001 ####[facility] [address] [place], [address] WBC 0-5 SEEN Normal 0-5 [facility] Comment on above: Order Comment: CLEAN CATCH Performed By: #### L 400.0001 ####[facility] [address] [place], [address] BILIRUBIN URINE Negative Normal Negative [facility] Comment on above: Order Comment: CLEAN CATCH Performed By: #### L 400.0001 ####[facility] [address] [place], [address] Clarity (U) Clear Normal Clear [facility] Comment on above: Order Comment: CLEAN CATCH Performed By: #### L 400.0001 ####[facility] [address] [place], [address] Color (U) Yellow Normal Yellow [facility] Comment on above: Order Comment: CLEAN CATCH Performed By: #### L 400.0001 ####[facility] [address] [place], [address] GLUCOSE, UR 1000 mg/dl Abnormal Normal [facility] Comment on above: Order Comment: CLEAN CATCH Performed By: #### L 400.0001 ####[facility] [address] [place], [address] KETONE UR Negative Normal Negative [facility] Comment on above: Order Comment: CLEAN CATCH Performed By: #### L 400.0001 ####[facility] [address] [place], [address] LEUK ESTERASE Negative Normal Negative [facility] Comment on above: Order Comment: CLEAN CATCH Performed By: #### L 400.0001 ####[facility] [address] [place], [address] Nitrite Ql (U) Negative Normal Negative [facility] Comment on above: Order Comment: CLEAN CATCH Performed By: #### L 400.0001 ####[facility] [address] [place], [address] OCCULT BLOOD-UR Negative Normal Negative [facility] Comment on above: Order Comment: CLEAN CATCH Performed By: #### L 400.0001 ####[facility] [address] [place], [address] pH UR 6.0 Normal 5.0 - 8.0 [facility] Comment on above: Order Comment: CLEAN CATCH Performed By: #### L 400.0001 ####[facility] [address] [place], [address] PROT DIPSTX Negative Normal Negative [facility] Comment on above: Order Comment: CLEAN CATCH Performed By: #### L 400.0001 ####[facility] [address] [place], [address] SP.GR. DIPSTX 1.010 Normal 1.002-1.030 [facility] Comment on above: Order Comment: CLEAN CATCH Performed By: #### L 400.0001 ####[facility] [address] [place], [address] UROBILI Normal Normal Normal [facility] Comment on above: Order Comment: CLEAN CATCH Performed By: #### L 400.0001 ####[facility] [address] [place], [address] Mucus Ql (Urine sed) 0 SEEN Normal [facility] Comment on above: Order Comment: CLEAN CATCH Performed By: #### L 400.0001 ####[facility] [address] [place], [address] Urine clarityOrdered By: Sidney Donald on 06-18-2024 Clarity (U) Clear Clear [facility] Urine color determinationOrd ered By: Steve Donald on 06-18-2024 Color (U) Yellow Yellow [facility] Urine glucose detectionOrder ed By: Steve Donald on 06-18-2024 Glucose Ql (U) 1000 mg/dl High Normal [facility] Urine leukocyte esterase det ection by dipstickOrdered By: Steve Donald on 06-18-2024 Leukocyte esterase Test strip Ql (U) Negative Negative [facility] Urine pHOrdered By: Setve caraballo on 06-18-2024 pH (U) 6.0 [pH] 5.0 - 8.0 [facility] Urine sediment bacteria coun t by microscopy (number/high power field)Ordered By: Steve Donald on 06-18-2024 Bacteria LM.HPF (Urine sed) [#/Area] RARE /hpf None Seen [facility] Urine specific gravity measu rementOrdered By: Steve Donald on 06-18-2024 Specific gravity (U) [Rel density] 1.010 1.002-1.030 [facility] Urine urobilinogen measureme ntOrdered By: Steve Donald on 06-18-2024 Urobilinogen Ql (U) Normal mg/dl Normal [facility] White blood cell countOrdere d By: Steve Donald on 06-18-2024 White blood cell count 0-5 SEEN /hpf 0-5 [facility] 12 Lead EKGon 06-17-2024 12 Lead EKG Normal [facility] Basic Metabolic Profile (BMP )on 06-17-2024 BUN/CRE 18.7 RATIO Normal 10-20 [facility] Comment on above: Performed By: #### L 501.4021, L100.0100, L500.2500 ####[facility] [address] [place], [address] Calcium [Mass/Vol] 9.4 mg/dL Normal 7.6-11.0 [facility] Comment on above: Performed By: #### L 501.4021, L100.0100, L500.2500 ####[facility] [address] [place], [address] Chloride [Moles/Vol] 100 mmol/L Normal 98-108 [facility] Comment on above: Performed By: #### L 501.4021, L100.0100, L500.2500 ####[facility] [address] [place], [address] CO2 [Moles/Vol] 21.0 mmol/L Normal 21.0-32.0 [facility] Comment on above: Performed By: #### L 501.4021, L100.0100, L500.2500 ####[facility] [address] [place], [address] Creatinine [Mass/Vol] 0.94 mg/dL Normal 0.70-1.20 [facility] Comment on above: Performed By: #### L 501.4021, L100.0100, L500.2500 ####[facility] [address] [place], [address] GAP 14 Normal 5-15 [facility] Comment on above: Performed By: #### L 501.4021, L100.0100, L500.2500 ####[facility] [address] [place], [address] GFR/1.73 sq M.predicted among non-blacks MDRD (S/P/Bld) [Vol rate/Area] 91 mL/min/{1.73_m2} Normal >60 [facility] Comment on above: Result Comment: mL/m in/1.73m2 CKD-EPI Creatinine Equation (2020) Performed By: #### L 501.4021, L100.0100, L500.2500 ####[facility] [address] [place], [address] Glucose [Mass/Vol] 438 mg/dL High 70-99 [facility] Comment on above: Performed By: #### L 501.4021, L100.0100, L500.2500 ####[facility] [address] [place], [address] Potassium [Moles/Vol] 4.5 mmol/L Normal 3.3-5.1 [facility] Comment on above: Performed By: #### L 501.4021, L100.0100, L500.2500 ####[facility] [address] [place], [address] Sodium [Moles/Vol] 134 mmol/L Normal 133-145 [facility] Comment on above: Performed By: #### L 501.4021, L100.0100, L500.2500 ####[facility] [address] [place], [address] Urea nitrogen [Mass/Vol] 18 mg/dL Normal 4-19 [facility] Comment on above: Performed By: #### L 501.4021, L100.0100, L500.2500 ####[facility] [address] [place], [address] CBC W/Diff, Automatedon - Absolute Lymph 2.17 X10 3/uL Normal 0.83-4.51 [facility] Comment on above: Performed By: #### L 501.4021, L100.0100, L500.2500 ####[facility] [address] [place], [address] Absolute Neut 2.9 X10 3/uL Normal 2.0-7.7 [facility] Comment on above: Performed By: #### L 501.4021, L100.0100, L500.2500 ####[facility] [address] [place], [address] Basophils/100 WBC (Bld) 0.3 % Normal 0-1 [facility] Comment on above: Performed By: #### L 501.4021, L100.0100, L500.2500 ####[facility] [address] [place], [address] Eosinophils/100 WBC (Bld) 2.2 % Normal 0-5 [facility] Comment on above: Performed By: #### L 501.4021, L100.0100, L500.2500 ####[facility] [address] [place], [address] Erythrocyte distribution width (RBC) [Ratio] 13.1 % Normal 11.6-14.6 [facility] Comment on above: Performed By: #### L 501.4021, L100.0100, L500.2500 ####[facility] [address] [place], [address] Hematocrit (Bld) [Volume fraction] 46.2 % Normal 40-54 [facility] Comment on above: Performed By: #### L 501.4021, L100.0100, L500.2500 ####[facility] [address] [place], [address] Hemoglobin (Bld) [Mass/Vol] 15.2 g/dL Normal 13.0-16.5 [facility] Comment on above: Performed By: #### L 501.4021, L100.0100, L500.2500 ####[facility] [address] [place], [address] IG% 0.200 Normal 0.0-0.9 [facility] Comment on above: Result Comment: IG% - Immature Granulocytes (promyelocytes, myelocytes andmetamyelocytes) > 1% indicates that a LEFT SHIFT is Present. Performed By: #### L 501.4021, L100.0100, L500.2500 ####[facility] [address] [place], [address] Lymphocytes/100 WBC (Bld) 37.2 % Normal 19-41 [facility] Comment on above: Performed By: #### L 501.4021, L100.0100, L500.2500 ####[facility] [address] [place], [address] MCH (RBC) [Entitic mass] 31.3 pg Normal 27.0-32.0 [facility] Comment on above: Performed By: #### L 501.4021, L100.0100, L500.2500 ####[facility] [address] [place], [address] MCHC (RBC) [Mass/Vol] 32.9 g/dL Normal 32-36 [facility] Comment on above: Performed By: #### L 501.4021, L100.0100, L500.2500 ####[facility] [address] [place], [address] MCV (RBC) [Entitic vol] 95.1 fL High 80-94 [facility] Comment on above: Performed By: #### L 501.4021, L100.0100, L500.2500 ####[facility] [address] [place], [address] Monocytes/100 WBC (Bld) 10.3 % High 0-10 [facility] Comment on above: Performed By: #### L 501.4021, L100.0100, L500.2500 ####[facility] [address] [place], [address] Neutrophils/100 WBC (Bld) 49.8 % Normal 47-70 [facility] Comment on above: Performed By: #### L 501.4021, L100.0100, L500.2500 ####[facility] [address] [place], [address] Nucleated RBC (Bld) [#/Vol] 0 10*3/uL Normal 0-5 [facility] Comment on above: Performed By: #### L 501.4021, L100.0100, L500.2500 ####[facility] [address] [place], [address] Platelet mean volume (Bld) [Entitic vol] 10.3 fL Normal 6.2-12.0 [facility] Comment on above: Performed By: #### L 501.4021, L100.0100, L500.2500 ####[facility] [address] [place], [address] Platelets (Bld) [#/Vol] 244 10*3/uL Normal 150-450 [facility] Comment on above: Performed By: #### L 501.4021, L100.0100, L500.2500 ####[facility] [address] [place], [address] RBC (Bld) [#/Vol] 4.86 10*6/uL Normal 4.6-6.2 [facility] Comment on above: Performed By: #### L 501.4021, L100.0100, L500.2500 ####[facility] [address] [place], [address] RDW SD 45.7 fl High 35.1-43.9 [facility] Comment on above: Performed By: #### L 501.4021, L100.0100, L500.2500 ####[facility] [address] [place], [address] WBC (Bld) [#/Vol] 5.8 10*3/uL Normal 4.4-11.0 [facility] Comment on above: Performed By: #### L 501.4021, L100.0100, L500.2500 ####[facility] [address] [place], [address] Chest 1 View (Portable)on Chest 1 View (Portable) Normal [facility] L501.4021on 06-17-2024 Trop T High Sen 76 ng/L Invalid Interpretation Code <=22 [facility] Comment on above: Result Comment: Crit ical Result(s) Called at: 2342 by: NARAYAN LAMBERT??Results read back by same. Performed By: #### L 501.4021, L100.0100, L500.2500 ####[facility] [address] [place], [address] No Panel InformationOrdered By: ED PROVIDER on 06-17-2024 76 ng/L High <22 [facility] No Panel InformationOrdered By: Jevon Osorio on 06-17-2024 2490 pg/mL High <900 [facility] Ankle Brachial Indexon 06-13 Ankle Brachial Index Normal [facility] Arterial Doppler ultrasound reportOrdered By: Saúl Flowers on 06-13-2024 Study report [facility] [address] [place] [address] US Art Duplex Unilat Lower Ext 06/13/24 1426 MR#: [id number] Acct: [id number] Name: JAYLEN MEJIA Hannah Sr. Rep #:[id number] : 1960 64 From: Saúl Whaley Attending Dr: NILSON Heck Stat us: REG CLI Ordering Dr: Lubna Manley Date: Location: [facility] Sex: M C Admitted: Reason For Study [...] Date Dictated: 06/13/24 1426 Date Transcribed: 06/13/241632 Casino Assistant Manager: Signed [facility] Work Phone: Arterial study reportOrdered By: Saúl Flowers on 06-13-2024 Noninvasive arteriosclerosis study report [facility] Services [address] [facility] [place] [address] Ankle Brachial Index 06/13/24 1351 MR#: [id number] Acct: [id number] Name: JAYLEN MEJIA Sr. Rep #:[id number] [...] Dictated: 06/13/24 1351 Date Transcribed: 06/13/24 163 Casino Assistant Manager: Signed [facility] Work Phone: US Art Duplex Unilat Lower E xton 06-13-2024 US Art Duplex Unilat Lower Ext Normal [facility] Chest 1 View (Portable)on Chest 1 View (Portable) Normal [facility] Emergency Department Summary on 05-21-2024 Emergency Department Summary Normal [facility] Influenza virus A and B and SARS-CoV-2 (COVID-19) and Respiratory syncytial virus RNAOrdered By: Saúl Aguilar on 05-21-2024 SARS-CoV-2 (COVID-19) RNA HAYDER+probe Ql (Unsp spec) [facility] M100.678on 05-21-2024 M100.678 SARS-CoV-2 (COVID 19 ) Negative INFLUENZA A Negative INFLUENZA B Negative RSV PCR Negative Normal [facility] Comment on above: Performed By: #### M 100.678 ####[facility] [address] [place], [place], [id number] MR/BMS.BVSon 05-17-2024 MR/BMS.BVS Normal [facility] Echo Complete W/ Contraston 05-09-2024 Echo Complete W/ Contrast Normal [facility] Internal Medicine Office Vis iton 05-03-2024 Internal Medicine Office Visit Normal [facility] Laboratory - Hematology and Cell countson 05-03-2024 HbA1c (Bld) [Mass fraction] 11.4 % High 4.2-6.3 [facility] ACT Activated Clotting Timeo n 04-20-2024 ACTk CLOT TIME 222 sec High 74-137 [facility] Comment on above: Performed By: #### L 9100.0100 ####[facility] [address] [place], [place], [address] Activated clotting timeOrder ed By: Saúl Flowers on 04-20-2024 Activated Clotting Time 222 sec High 74-137 [facility] Basic Metabolic Profile (BMP )on 04-20-2024 BUN/CRE 15.1 RATIO Normal 10-20 [facility] Comment on above: Performed By: #### L 500.2500, L100.0500 ####[facility] [address] [place], [address] CA,Total 9.3 mg/dL Normal 8.5-10.1 [facility] Comment on above: Performed By: #### L 500.2500, L100.0500 ####[facility] [address] [place], [address] Chloride [Moles/Vol] 103 mmol/L Normal 98-107 [facility] Comment on above: Performed By: #### L 500.2500, L100.0500 ####[facility] [address] [place], [address] CO2 [Moles/Vol] 26.0 mmol/L Normal 21.0-32.0 [facility] Comment on above: Performed By: #### L 500.2500, L100.0500 ####[facility] [address] [place], [address] Creatinine [Mass/Vol] 1.06 mg/dL Normal 0.70-1.30 [facility] Comment on above: Result Comment: The validity of the calculated GFR GFRAA in patients over70 years has not been determined. Clinical correlation isessential. Performed By: #### L 500.2500, L100.0500 ####[facility] [address] [place], [address] ECRCL 78.67 ml/min Normal [facility] Comment on above: Performed By: #### L 500.2500, L100.0500 ####[facility] [address] [place], [address] EST GFR - AA 90 mL/min Normal >60 [facility] Comment on above: Result Comment: Afri can Kitt[place] GFR Calc Performed By: #### L 500.2500, L100.0500 ####[facility] [address] [place], [address] GAP 6 Normal 5-15 [facility] Comment on above: Performed By: #### L 500.2500, L100.0500 ####[facility] [address] [place], [address] GFR/1.73 sq M.predicted among non-blacks MDRD (S/P/Bld) [Vol rate/Area] 75 mL/min/{1.73_m2} Normal >60 [facility] Comment on above: Result Comment: Non- GFR Calc Performed By: #### L 500.2500, L100.0500 ####[facility] [address] [place], [address] Glucose [Mass/Vol] 228 mg/dL High 74-106 [facility] Comment on above: Result Comment: Gluc ose result greater than or equal to 200 mg/dLsuggests DIABETES MELLITUS per A.D.A. criteria. Performed By: #### L 500.2500, L100.0500 ####[facility] [address] [place], [address] Potassium [Moles/Vol] 4.3 mmol/L Normal 3.5-5.1 [facility] Comment on above: Performed By: #### L 500.2500, L100.0500 ####[facility] [address] [place], [address] Sodium [Moles/Vol] 135 mmol/L Low 136-145 [facility] Comment on above: Performed By: #### L 500.2500, L100.0500 ####[facility] [address] [place], [address] Urea nitrogen [Mass/Vol] 16 mg/dL Normal 7-18 [facility] Comment on above: Performed By: #### L 500.2500, L100.0500 ####[facility] [address] [place], [address] Blood urea nitrogen (BUN)/cr eatinine ratioOrdered By: Saúl Flowers on 04-20-2024 Urea nitrogen/Creatinine [Mass ratio] 15.1 mg/mg 10-20 [facility] CBC-Complete Blood Cnt No Di ffon 04-20-2024 Erythrocyte distribution width (RBC) [Ratio] 12.9 % Normal 11.6-14.6 [facility] Comment on above: Performed By: #### L 500.2500, L100.0500 ####[facility] [address] [place], [address] Hematocrit (Bld) [Volume fraction] 52.2 % Normal 40-54 [facility] Comment on above: Performed By: #### L 500.2500, L100.0500 ####[facility] [address] [place], [address] Hemoglobin (Bld) [Mass/Vol] 17.8 g/dL High 13.0-16.5 [facility] Comment on above: Performed By: #### L 500.2500, L100.0500 ####[facility] [address] [place], [address] MCH (RBC) [Entitic mass] 31.7 pg Normal 27.0-32.0 [facility] Comment on above: Performed By: #### L 500.2500, L100.0500 ####[facility] [address] [place], [address] MCHC (RBC) [Mass/Vol] 34.1 g/dL Normal 32-36 [facility] Comment on above: Performed By: #### L 500.2500, L100.0500 ####[facility] [address] [place], [address] MCV (RBC) [Entitic vol] 92.9 fL Normal 80-94 [facility] Comment on above: Performed By: #### L 500.2500, L100.0500 ####[facility] [address] [place], [address] Platelet mean volume (Bld) [Entitic vol] 9.5 fL Normal 6.2-12.0 [facility] Comment on above: Performed By: #### L 500.2500, L100.0500 ####[facility] [address] [place], [address] Platelets (Bld) [#/Vol] 271 10*3/uL Normal 150-450 [facility] Comment on above: Performed By: #### L 500.2500, L100.0500 ####[facility] [address] [place], [address] RBC (Bld) [#/Vol] 5.62 10*6/uL Normal 4.6-6.2 [facility] Comment on above: Performed By: #### L 500.2500, L100.0500 ####[facility] [address] [place], [address] RDW SD 43.8 fl Normal 35.1-43.9 [facility] Comment on above: Performed By: #### L 500.2500, L100.0500 ####[facility] [address] [place], [address] WBC (Bld) [#/Vol] 8.5 10*3/uL Normal 4.4-11.0 [facility] Comment on above: Performed By: #### L 500.2500, L100.0500 ####[facility] [address] [place], [address] Carbon dioxide measurementOr dered By: Saúl Flowers on 04-20-2024 CO2 [Moles/Vol] 26.0 mmol/L 21.0-32.0 [facility] Chloride measurementOrdered By: Saúl Flowers on 04-20-2024 Chloride [Moles/Vol] 103 mmol/L 98-107 [facility] Erythrocyte distribution wid th ratioOrdered By: Saúl Flowers on 04-20-2024 Erythrocyte distribution width (RBC) [Ratio] 12.9 % 11.6-14.6 [facility] Erythrocyte distribution wid th standard deviationOrdered By: Saúl Flowers on 04-20-2024 Erythrocyte distribution width (RBC) [Entitic vol] 43.8 fL 35.1-43.9 [facility] Estimated glomerular filtrat ion rate (GFR) AmericanOrdered By: Saúl Flowers on 04-20-2024 Estimated GFR (MDRD) Amer 90 mL/min >60 [facility] Comment on above: GFR Calc Estimation of creatinine john aranceOrdered By: Saúl Flowers on 04-20-2024 Estimated Creatinine Clearance Calc 78.67 ml/min [facility] Glomerular filtration rate ( GFR) estimationOrdered By: Saúl Flowers on 04-20-2024 Estimated GFR (MDRD) Non-Af Amer 75 mL/min >60 [facility] Comment on above: Non- GFR Calc Glucose measurementOrdered B y: Saúl Flowers on 04-20-2024 Glucose [Mass/Vol] 228 mg/dL High 74-106 [facility] Comment on above: Glucose result great er than or equal to 200 mg/dLsuggests DIABETES MELLITUS per A.D.A. criteria. Hematocrit Auto (Bld) [Volum e fraction]Ordered By: Saúl Flowers on 04-20-2024 Hematocrit (Bld) [Volume fraction] 52.2 % 40-54 [facility] Hemoglobin measurementOrdere d By: Saúl Flowers on 04-20-2024 Hemoglobin (Bld) [Mass/Vol] 17.8 g/dL High 13.0-16.5 [facility] MCV (mean corpuscular volume ) determinationOrdered By: Saúl Flowers 04-20-2024 MCV (RBC) [Entitic vol] 92.9 fL 80-94 [facility] Mean corpuscular hemoglobin (MCH) determinationOrdered By: Saúl Flowers 04-20-2024 MCH (RBC) [Entitic mass] 31.7 pg 27.0-32.0 [facility] Mean corpuscular hemoglobin concentration (MCHC) determinationOrdered By: Saúl Flowers on 04-20-2024 MCHC (RBC) [Mass/Vol] 34.1 g/dL 32-36 [facility] Mean platelet volume determi nationOrdered By: Saúl Flowers on 04-20-2024 Platelet mean volume (Bld) [Entitic vol] 9.5 fL 6.2-12.0 [facility] Operative Reporton Operative Report Normal [facility] Platelet countOrdered By: Chacho Flowers on 04-20-2024 Platelets (Bld) [#/Vol] 271 10*3/uL 150-450 [facility] Potassium measurementOrdered By: Saúl Flowers on 04-20-2024 Potassium [Moles/Vol] 4.3 mmol/L 3.5-5.1 [facility] RBC Auto (Bld) [#/Vol]Ordere d By: Saúl Flowers on 04-20-2024 RBC (Bld) [#/Vol] 5.62 10*6/uL 4.6-6.2 [facility] Serum anion gap measurementO rdered By: Saúl Flowers on 04-20-2024 Anion gap [Moles/Vol] 6 mmol/L - [facility] Serum or plasma calcium brenda urement (mass/volume)Ordered By: Saúl Flowers on 04-20-2024 Calcium [Mass/Vol] 9.3 mg/dL 8.5-10.1 [facility] Serum or plasma creatinine m easurement (mass/volume)Ordered By: Saúl Flowers on 04-20-2024 Creatinine [Mass/Vol] 1.06 mg/dL 0.70-1.30 [facility] Comment on above: The validity of the calculated GFR & GFRAA in patients over 70 years has not been determined. Clinical correlation is essential. Serum or plasma urea nitroge n measurement (mass/volume)Ordered By: Saúl Flowers on 04-20-2024 Urea nitrogen [Mass/Vol] 16 mg/dL 7-18 [facility] Sodium levelOrdered By: Saúl Flowers on 04-20-2024 Sodium [Moles/Vol] 135 mmol/L Low 136-145 [facility] White blood cell (WBC) count Ordered By: Saúl Flowers on 04-20-2024 WBC (Bld) [#/Vol] 8.5 10*3/uL 4.4-11.0 [facility] MR/BMS.BVSon 04-08-2024 MR/BMS.BVS Normal [facility] Cardiology Visit Reporton Cardiology Visit Report Normal [facility] CREATININE FINGERSTICKon CREATININE WB < 1.0 Normal 0.70-1.30 [facility] Comment on above: Performed By: #### L 9100.0200 ####[facility] [address] [place], [address] EGFR WB > 60.0000 Normal >60 [facility] Comment on above: Performed By: #### L 9100.0200 ####[facility] [address] [place], [address] CTA Abd w/Runoff W/WO Contra ston 03-29-2024 CTA Abd w/Runoff W/WO Contrast Normal [facility] Creatinine measurement at be dsideOrdered By: Lubna Manley on 03-29-2024 Bedside Creatinine < 1.0 mg/dL 0.70-1.30 [facility] EGFROrdered By: Lubna Manley on 03-29-2024 Bedside Estimated GFR (eGFR) > 60.0000 mL/min >60 [facility] MR/BMS.BVSon 03-22-2024 MR/BMS.BVS Normal [facility] Lower Ext Art Exam w/o Exerc zcahary 03-09-2024 Lower Ext Art Exam w/o Exercis Normal [facility] Internal Medicine Office Vis iton 02-24-2024 Internal Medicine Office Visit Normal [facility] Laboratory - Hematology and Cell countson 02-24-2024 HbA1c (Bld) [Mass fraction] 11.3 % High 4.2-6.3 [facility] MR/BMS.BVSon 02-24-2024 MR/BMS.BVS Normal [facility] Lipid Profileon 02-23-2024 Cholesterol [Mass/Vol] 238 mg/dL High 200 [facility] Comment on above: Result Comment: <200 mg/dL Desirable 200-240 mg/dL Borderline >240 mg/dL High Risk Performed By: #### L 500.3400, L500.4100 ####[facility] [address] [place], [address] Cholesterol in HDL [Mass/Vol] 38 mg/dL Low [facility] Comment on above: Result Comment: The drugs N-Acetylcysteine and Metamizole may falselydepress this assay. Reference Range HDL <40 mg/dL Low HDL Cholesterol HDL >or= 60 mg/dL High HDL Cholesterol Performed By: #### L 500.3400, L500.4100 ####[facility] [address] [place], [address] LDL TNP Normal 0-130 [facility] Comment on above: Performed By: #### L 500.3400, L500.4100 ####[facility] [address] [place], [address] Triglyceride [Mass/Vol] 607 mg/dL High [facility] Comment on above: Result Comment: The drugs N-Acetylcysteine and Metamizole may falselydepress this assay.TRIGLYCERIDE IS GREATER THAN 400 mg/dL.LDL RESULT IS INVALID AND WILL NOT BE REPORTED.Serum Triglycerides Reference Interval Normal <150 mg/dL Borderline high 150 - 199 mg/dL High 200 - 499 mg/dL Very High > or = 500 mg/dL Performed By: #### L 500.3400, L500.4100 ####[facility] [address] [place], [address] VLDL TNP Normal 5-40 [facility] Comment on above: Performed By: #### L 500.3400, L500.4100 ####[facility] [address] [place], [address] Liver Profileon 02-23-2024 Albumin [Mass/Vol] 3.8 g/dL Normal 3.2-5.0 [facility] Comment on above: Performed By: #### L 500.3400, L500.4100 ####[facility] [address] [place], [address] ALK P 69 U/L Normal 45-117 [facility] Comment on above: Performed By: #### L 500.3400, L500.4100 ####[facility] [address] [place], [address] ALT [Catalytic activity/Vol] 37 U/L Normal 16-61 [facility] Comment on above: Performed By: #### L 500.3400, L500.4100 ####[facility] [address] [place], [address] AST [Catalytic activity/Vol] 27 U/L Normal 15-37 [facility] Comment on above: Performed By: #### L 500.3400, L500.4100 ####[facility] [address] [place], [address] Bilirubin [Mass/Vol] 0.70 mg/dL Normal 0.20-1.00 [facility] Comment on above: Result Comment: For patients on eltrombopag therapy, use of Dimension [place] TBIL is not recommended. Performed By: #### L 500.3400, L500.4100 ####[facility] [address] [place], [address] Bilirubin.direct [Mass/Vol] 0.16 mg/dL Normal 0.00-0.30 [facility] Comment on above: Performed By: #### L 500.3400, L500.4100 ####[facility] [address] [place], [address] Globulin (S) [Mass/Vol] 4.0 g/dL Normal 2.2-4.2 [facility] Comment on above: Performed By: #### L 500.3400, L500.4100 ####[facility] [address] [place], [address] T PROT 7.8 g/dL Normal 6.4-8.2 [facility] Comment on above: Performed By: #### L 500.3400, L500.4100 ####[facility] [address] [place], [place], [address] MR/BMS.BVSon 01-07-2024 MR/BMS.BVS Normal [facility] Venous Duplex US, Unilateral on 11-13-2023 Venous Duplex US, Unilateral Normal [facility] Internal Medicine Office Vis iton 10-28-2023 Internal Medicine Office Visit Normal [facility] LDL, Directon 10-05-2023 LDL, DIRECT Normal [facility] Comment on above: Result Comment: TEST RESULTS LIMITSLDL Chol. (Direct) 160 High mg/dL 0-99 TESTING PERFORMED AT [facility]. ORIGINAL REPORT ON FILE IN LAB CONTAINS ADDITIONAL TEST SITE INFORMATION. Performed By: #### L 500.3400, L500.4100, L3300.4490 ####[facility] [address] [place], [place], [address] Lipid Profileon 09-21-2023 Cholesterol [Mass/Vol] 253 mg/dL High 200 [facility] Comment on above: Result Comment: <200 mg/dL Desirable 200-240 mg/dL Borderline >240 mg/dL High Risk Performed By: #### L 500.3400, L500.4100, L3300.4490 ####[facility] [address] [place], [place], [address] Cholesterol in HDL [Mass/Vol] 36 mg/dL Low [facility] Comment on above: Result Comment: The drugs N-Acetylcysteine and Metamizole may falselydepress this assay. Reference Range HDL <40 mg/dL Low HDL Cholesterol HDL >or= 60 mg/dL High HDL Cholesterol Performed By: #### L 500.3400, L500.4100, L3300.4490 ####[facility] [address] [place], [address] LDL TNP Normal 0-130 [facility] Comment on above: Performed By: #### L 500.3400, L500.4100, [id number] ####[facility] [address] [place], [address] Triglyceride [Mass/Vol] 470 mg/dL High [facility] Comment on above: Result Comment: The drugs N-Acetylcysteine and Metamizole may falselydepress this assay.TRIGLYCERIDE IS GREATER THAN 400 mg/dL.LDL RESULT IS INVALID AND WILL NOT BE REPORTED.Serum Triglycerides Reference Interval Normal <150 mg/dL Borderline high 150 - 199 mg/dL High 200 - 499 mg/dL Very High > or = 500 mg/dL Performed By: #### L 500.3400, L500.4100, L3300.4490 ####[facility] [address] [place], [address] VLDL TNP Normal 5-40 [facility] Comment on above: Performed By: #### L 500.3400, L500.4100, [id number] ####[facility] [address] [place], [address] Liver Profileon 09-21-2023 Albumin [Mass/Vol] 3.8 g/dL Normal 3.2-5.0 [facility] Comment on above: Performed By: #### L 500.3400, L500.4100, [id number] ####[facility] [address] [place], [address] ALK P 65 U/L Normal 45-117 [facility] Comment on above: Performed By: #### L 500.3400, L500.4100, [id number] ####[facility] [address] [place], [address] ALT [Catalytic activity/Vol] 37 U/L Normal 16-61 [facility] Comment on above: Performed By: #### L 500.3400, L500.4100, [id number] ####[facility] [address] [place], [address] AST [Catalytic activity/Vol] 28 U/L Normal 15-37 [facility] Comment on above: Performed By: #### L 500.3400, L500.4100, [id number] ####[facility] [address] [place], [address] Bilirubin [Mass/Vol] 0.70 mg/dL Normal 0.20-1.00 [facility] Comment on above: Result Comment: For patients on eltrombopag therapy, use of Dimension [place] TBIL is not recommended. Performed By: #### L 500.3400, L500.4100, [id number] ####[facility] [address] [place], [address] Bilirubin.direct [Mass/Vol] 0.15 mg/dL Normal 0.00-0.30 [facility] Comment on above: Performed By: #### L 500.3400, L500.4100, [id number] ####[facility] [address] [place], [address] Globulin (S) [Mass/Vol] 4.1 g/dL Normal 2.2-4.2 [facility] Comment on above: Performed By: #### L 500.3400, L500.4100, [id number] ####[facility] [address] [place], [address] T PROT 7.9 g/dL Normal 6.4-8.2 [facility] Comment on above: Performed By: #### L 500.3400, L500.4100, [id number] ####[facility] [address] [place], [address] Basophil percentageOrdered B y: Xiang Rogers on 04-15-2023 Bilirubin [Mass/Vol] 0.60 mg/dL 0.20-1.00 [facility] Comment on above: For patients on eltr ombopag therapy, use of Dimension [place] TBIL is not recommended. Chloride [Moles/Vol] 100 mmol/L 98-107 [facility] Cholesterol [Mass/Vol] 255 mg/dL <200 [facility] Comment on above: <200 mg/dL Desirable 200-240 mg/dL Borderline >240 mg/dL High Risk Glucose [Mass/Vol] 255 mg/dL 74-106 [facility] Comment on above: Glucose result great er than or equal to 200 mg/dLsuggests DIABETES MELLITUS per A.D.A. criteria. Potassium [Moles/Vol] 4.7 mmol/L 3.5-5.1 [facility] Comment on above: Slight Hemolysis, Re sult may be falsely increased. Protein [Mass/Vol] 7.7 g/dL 6.4-8.2 [facility] Sodium [Moles/Vol] 133 mmol/L 136-145 [facility] Triglyceride [Mass/Vol] 411 mg/dL <199 [facility] Comment on above: The drugs N-Acetylcy steine [...] 04-15-2023 ALP [Catalytic activity/Vol] 81 U/L 45-117 [facility] ALT [Catalytic activity/Vol] 40 U/L 16-61 [facility] CO2 [Moles/Vol] 28.0 mmol/L 21.0-32.0 [facility] Globulin (S) [Mass/Vol] 4.1 g/dL 2.2-4.2 [facility] Urea nitrogen/Creatinine [Mass ratio] 11.9 mg/mg 10-20 [facility] Laboratory - Hematology and Cell countson 04-15-2023 HbA1c (Bld) [Mass fraction] 10.6 % 4.2-6.3 [facility] No Panel InformationOrdered By: Xiang Rogers on 04-15-2023 Estimated GFR (MDRD) Amer 96 mL/min >60 [facility] Comment on above: GFR Calc Estimated GFR (MDRD) Non-Af Amer 79 mL/min >60 [facility] Comment on above: Non- GFR Calc Serum or plasma albumin brenda urement (mass/volume)Ordered By: Xiang Rogers on 04-15-2023 Albumin [Mass/Vol] 3.6 g/dL 3.2-5.0 [facility] Serum or plasma albumin/glob ulin mass ratioOrdered By: Xiang Rogers on 04-15-2023 Albumin/Globulin [Mass ratio] 0.9 {ratio} 0.9-2.4 [facility] Serum or plasma calcium brenda urement (mass/volume)Ordered By: Xiang Rogers on 04-15-2023 Calcium [Mass/Vol] 8.9 mg/dL 8.5-10.1 [facility] Serum or plasma cholesterol in HDL measurement (mass/volume)Ordered By: Xiang Rogers on 04-15-2023 Cholesterol in HDL [Mass/Vol] 37 mg/dL >40 [facility] Comment on above: The drugs N-Acetylcy steine and Metamizole may falsely depress this assay. Reference Range HDL <40 mg/dL Low HDL Cholesterol HDL >or= 60 mg/dL High HDL Cholesterol Serum or plasma cholesterol in VLDL measurement (mass/volume)Ordered By: Xiang Rogers on 04-15-2023 Cholesterol in VLDL [Mass/Vol] TNP [facility] Comment on above: Test not performed Serum or plasma creatinine m easurement (mass/volume)Ordered By: Xiang Rogers on 04-15-2023 Creatinine [Mass/Vol] 1.01 mg/dL 0.70-1.30 [facility] Comment on above: The validity of the calculated GFR & GFRAA in patients over 70 years has not been determined. Clinical correlation is essential. Serum or plasma low density lipoprotein (LDL) cholesterol measurement (mass/volume)Ordered By: Xiang Rogers on 01-10-2024 Cholesterol in LDL [Mass/Vol] TNP [facility] Comment on above: Test not performed Serum or plasma urea nitroge n measurement (mass/volume)Ordered By: Xiang Rogers on 04-15-2023 Urea nitrogen [Mass/Vol] 12 mg/dL 7-18 [facility] Thin prep Papanicolaou smear with manual screeningOrdered By: Xiang Rogers on 04-15-2023 Thin prep Papanicolaou smear with manual screening 29 U/L 15-37 [facility] Comment on above: Slight Hemolysis, Re sult may be falsely increased. Thin prep Papanicolaou smear with manual screening 5 5-15 [facility] Laboratory - Hematology and Cell countson 01-13-2023 HbA1c (Bld) [Mass fraction] 9.0 % 4.2-6.3 [facility] Basophil percentageOrdered B y: Dean Pena on 06-02-2022 Bilirubin [Mass/Vol] 0.50 mg/dL 0.20-1.00 [facility] Comment on above: For patients on eltr ombopag therapy, use of Dimension [place] TBIL is not recommended. Cholesterol [Mass/Vol] 326 mg/dL <200 [facility] Comment on above: <200 mg/dL Desirable 200-240 mg/dL Borderline >240 mg/dL High Risk Protein [Mass/Vol] 7.5 g/dL 6.4-8.2 [facility] Triglyceride [Mass/Vol] 883 mg/dL <199 [facility] Comment on above: The drugs N-Acetylcy steine [...] on 06-02-2022 Bilirubin.direct [Mass/Vol] 0.07 mg/dL 0.00-0.30 [facility] Laboratory - Chemistry and C hemistry - challengeOrdered By: Dean Pena on 06-02-2022 ALP [Catalytic activity/Vol] 68 U/L 45-117 [facility] ALT [Catalytic activity/Vol] 35 U/L 16-61 [facility] Globulin (S) [Mass/Vol] 3.9 g/dL 2.2-4.2 [facility] Serum or plasma albumin brenda urement (mass/volume)Ordered By: Dean Pena on 06-02-2022 Albumin [Mass/Vol] 3.6 g/dL 3.2-5.0 [facility] Serum or plasma cholesterol in HDL measurement (mass/volume)Ordered By: Dean Pena on 06-02-2022 Cholesterol in HDL [Mass/Vol] 36 mg/dL >40 [facility] Comment on above: The drugs N-Acetylcy steine and Metamizole may falsely depress this assay. Reference Range HDL <40 mg/dL Low HDL Cholesterol HDL >or= 60 mg/dL High HDL Cholesterol Serum or plasma cholesterol in VLDL measurement (mass/volume)Ordered By: Dean Pena on 06-02-2022 Cholesterol in VLDL [Mass/Vol] [facility] Comment on above: Test not performed Serum or plasma low density lipoprotein (LDL) cholesterol measurement (mass/volume)Ordered By: Dean Pena on 06-02-2022 Cholesterol in LDL [Mass/Vol] [facility] Comment on above: Test not performed Thin prep Papanicolaou smear with manual screeningOrdered By: Dean Pena on 06-02-2022 Thin prep Papanicolaou smear with manual screening 26 U/L 15-37 [facility] Comment on above: Moderate Hemolysis, Result may be falsely increased. Absolute lymphocyte countOrd ered By: Dr. Johnson on 04-19-2022 Lymphocytes Auto (Unsp spec) [#/Vol] 1.77 10*3/uL 0.83-4.51 [facility] Basophil percentageOrdered B y: Dr. Fields on 04-19-2022 Chloride [Moles/Vol] 104 mmol/L 98-107 [facility] Glucose [Mass/Vol] 235 mg/dL 74-106 [facility] Comment on above: Glucose result great er than or equal to 200 mg/dLsuggests DIABETES MELLITUS per A.D.A. criteria. Potassium [Moles/Vol] 4.1 mmol/L 3.5-5.1 [facility] Sodium [Moles/Vol] 137 mmol/L 136-145 [facility] Basophil percentageOrdered B y: Dr. Johnson on 04-19-2022 Basophils/100 WBC (Bld) 0.5 % 0-1 [facility] Eosinophils/100 WBC (Bld) 4.3 % 0-5 [facility] Neutrophils (Bld) [#/Vol] 3.9 10*3/uL 2.0-7.7 [facility] Neutrophils/100 WBC (Bld) 59.9 % 47-70 [facility] WBC (Bld) [#/Vol] 6.6 10*3/uL 4.4-11.0 [facility] Blood erythrocytes count (nu mber/volume)Ordered By: Dr. Johnson on 04-19-2022 RBC (Bld) [#/Vol] 4.82 10*6/uL 4.6-6.2 [facility] Blood hemoglobin measurement (mass/volume)Ordered By: Dr. Johnson on 04-19-2022 Hemoglobin (Bld) [Mass/Vol] 15.4 g/dL 13.0-16.5 [facility] Blood lymphocytes/100 leukoc ytesOrdered By: Dr. Johnson on 04-19-2022 Lymphocytes/100 WBC (Bld) 27.0 % 19-41 [facility] Blood monocytes/100 leukocyt esOrdered By: Dr. Johnson on 04-19-2022 Monocytes/100 WBC (Bld) 7.8 % 0-10 [facility] Blood platelet mean volumeOr dered By: Dr. Johnson on 04-19-2022 Platelet mean volume (Bld) [Entitic vol] 10.2 fL 6.2-12.0 [facility] Determination of erythrocyte mean corpuscular volume (MCV)Ordered By: Dr. Johnson on 04-19-2022 MCV (RBC) [Entitic vol] 95.4 fL 80-94 [facility] Glucose Glucometer (dC) [M ass/Vol]Ordered By: Dr. Fields on 04-19-2022 Glucose [Mass/Vol] 290 mg/dL 74-106 [facility] Comment on above: MANAGEMENT OF PATIEN T CARE PER NURSING PROTOCOL Hematocrit Auto (Bld) [Volum e fraction]Ordered By: Dr. Johnson on 04-19-2022 Hematocrit (Bld) [Volume fraction] 46.0 % 40-54 [facility] INR in Blood by Coagulation assayOrdered By: Dr. Fields on 04-19-2022 INR Coag (Bld) [Relative time] 1.0 {INR} [facility] Laboratory - Chemistry and C hemistry - challengeOrdered By: Dr. Fields on 04-19-2022 CO2 [Moles/Vol] 26.0 mmol/L 21.0-32.0 [facility] Urea nitrogen/Creatinine [Mass ratio] 15.7 mg/mg 10-20 [facility] Laboratory - CoagulationOrde red By: Dr. Fields on 04-19-2022 aPTT Coag (Bld) [Time] 25.0 s 24.1-36.2 [facility] PT Coag (PPP) [Time] 13.0 s 11.7-14.9 [facility] Laboratory - Hematology and Cell countsOrdered By: Dr. Johnson on 04-19-2022 Erythrocyte distribution width (RBC) [Entitic vol] 43.7 fL 35.1-43.9 [facility] Erythrocyte distribution width (RBC) [Ratio] 12.4 % 11.6-14.6 [facility] Immature granulocytes/100 WBC (Bld) 0.500 % 0.0-0.9 [facility] Comment on above: IG% - Immature Granu locytes (promyelocytes, myelocytes and metamyelocytes) > 1% indicates that a LEFT SHIFT is Present. MCH (RBC) [Entitic mass] 32.0 pg 27.0-32.0 [facility] Nucleated RBC/100 WBC (Bld) [Ratio] 0 % 0-5 [facility] MCHC Auto (RBC) [Mass/Vol]Or dered By: Dr. Johnson on 04-19-2022 MCHC (RBC) [Mass/Vol] 33.5 g/dL 32-36 [facility] No Panel InformationOrdered By: Dr. Fields on 04-19-2022 Estimated Creatinine Clearance Calc 79.98 ml/min [facility] Estimated GFR (MDRD) Amer 95 mL/min >60 [facility] Comment on above: GFR Calc Estimated GFR (MDRD) Non-Af Amer 79 mL/min >60 [facility] Comment on above: Non- GFR Calc Platelets bldOrdered By: Dr. Johnson on 04-19-2022 Platelets (Bld) [#/Vol] 254 10*3/uL 150-450 [facility] Serum or plasma calcium brenda urement (mass/volume)Ordered By: Dr. Fields on 04-19-2022 Calcium [Mass/Vol] 8.9 mg/dL 8.5-10.1 [facility] Serum or plasma creatinine m easurement (mass/volume)Ordered By: Dr. Fields on 04-19-2022 Creatinine [Mass/Vol] 1.02 mg/dL 0.70-1.30 [facility] Comment on above: The validity of the calculated GFR & GFRAA in patients over 70 years has not been determined. Clinical correlation is essential. Serum or plasma urea nitroge n measurement (mass/volume)Ordered By: Dr. Fields on 04-19-2022 Urea nitrogen [Mass/Vol] 16 mg/dL 7-18 [facility] Thin prep Papanicolaou smear with manual screeningOrdered By: Dr. Fields on 04-19-2022 Thin prep Papanicolaou smear with manual screening 7 5-15 [facility] Absolute lymphocyte counton 04-18-2022 Lymphocytes Auto (Unsp spec) [#/Vol] 2.31 10*3/uL 0.83-4.51 [facility] Work Phone: Basophil percentageon 2022 Basophils/100 WBC (Bld) 0.5 % 0-1 [facility] Work Phone: Chloride [Moles/Vol] 103 mmol/L 98-107 [facility] Work Phone: Eosinophils/100 WBC (Bld) 4.3 % 0-5 [facility] Work Phone: Glucose [Mass/Vol] 252 mg/dL 74-106 [facility] Work Phone: Comment on above: Moderate Lipemia, Re sult may be falsely increased.Glucose result greater than or equal to 200 mg/dLsuggests DIABETES MELLITUS per A.D.A. criteria. Neutrophils (Bld) [#/Vol] 4.7 10*3/uL 2.0-7.7 [facility] Work Phone: [phone] Neutrophils/100 WBC (Bld) 57.7 % 47-70 [facility] Work Phone: [phone] Potassium [Moles/Vol] 3.9 mmol/L 3.5-5.1 [facility] Work Phone: [phone] Comment on above: Moderate Hemolysis, Result may be falsely increased. Sodium [Moles/Vol] 136 mmol/L 136-145 [facility] Work Phone: [phone] WBC (Bld) [#/Vol] 8.1 10*3/uL 4.4-11.0 [facility] Work Phone: [phone] Blood erythrocytes count (nu mber/volume)on 04-18-2022 RBC (Bld) [#/Vol] 4.98 10*6/uL 4.6-6.2 [facility] Work Phone: [phone] Blood hemoglobin measurement (mass/volume)on 04-18-2022 Hemoglobin (Bld) [Mass/Vol] 16.4 g/dL 13.0-16.5 [facility] Work Phone: [phone] Blood lymphocytes/100 leukoc yteson 04-18-2022 Lymphocytes/100 WBC (Bld) 28.6 % 19-41 [facility] Work Phone: [phone] Blood monocytes/100 leukocyt eson 04-18-2022 Monocytes/100 WBC (Bld) 8.5 % 0-10 [facility] Work Phone: [phone] Blood platelet mean volumeon 04-18-2022 Platelet mean volume (Bld) [Entitic vol] 10.2 fL 6.2-12.0 [facility] Work Phone: [phone] Determination of erythrocyte mean corpuscular volume (MCV)on 04-18-2022 MCV (RBC) [Entitic vol] 97.4 fL 80-94 [facility] Work Phone: [phone] Hematocrit Auto (Bld) [Volum e fraction]on 04-18-2022 Hematocrit (Bld) [Volume fraction] 48.5 % 40-54 [facility] Work Phone: [phone] INR in Blood by Coagulation assayon 04-18-2022 INR Coag (Bld) [Relative time] 1.0 {INR} [facility] Work Phone: [phone] Laboratory - Chemistry and C hemistry - challengeon 04-18-2022 CO2 [Moles/Vol] 28.0 mmol/L 21.0-32.0 [facility] Work Phone: [phone] Urea nitrogen/Creatinine [Mass ratio] 17.1 mg/mg 10-20 [facility] Work Phone: [phone] Laboratory - Chemistry and C hemistry - challengeOrdered By: Dr. Moura on 04-18-2022 Magnesium [Mass/Vol] 1.8 mg/dL 1.6-2.6 [facility] Comment on above: Moderate Hemolysis, Result may be falsely increased. Laboratory - Coagulationon 0 04-18-2022 aPTT Coag (Bld) [Time] 25.6 s 24.1-36.2 [facility] Work Phone: [phone] PT Coag (PPP) [Time] 12.3 s 11.7-14.9 [facility] Work Phone: [phone] Laboratory - Hematology and Cell countson 04-18-2022 Erythrocyte distribution width (RBC) [Entitic vol] 44.8 fL 35.1-43.9 [facility] Work Phone: [phone] Erythrocyte distribution width (RBC) [Ratio] 12.4 % 11.6-14.6 [facility] Work Phone: [phone] Immature granulocytes/100 WBC (Bld) 0.400 % 0.0-0.9 [facility] Work Phone: [phone] Comment on above: IG% - Immature Granu locytes (promyelocytes, myelocytes and metamyelocytes) > 1% indicates that a LEFT SHIFT is Present. MCH (RBC) [Entitic mass] 32.9 pg 27.0-32.0 [facility] Work Phone: Nucleated RBC/100 WBC (Bld) [Ratio] 0 % 0-5 [facility] Work Phone: [phone] MCHC Auto (RBC) [Mass/Vol]on 04-18-2022 MCHC (RBC) [Mass/Vol] 33.8 g/dL 32-36 [facility] Work Phone: No Panel InformationOrdered By: Dr. Fields on 04-18-2022 Troponin I High Sensitivity 1889 pg/mL 3.0-78.0 [facility] Comment on above: Critical Result(s) C alled at: 09:16:37 04/18/2022 by: Rula Gutierrez. Results read back by same. Please Note: New Test Units and Gender Specific Reference Ranges. For more information see Policy Stat Procedure [place] High Sensitivity Troponin (TNIH) and attachments. No Panel Informationon 04-18 Troponin I High Sensitivity 241 pg/mL 3.0-78.0 [facility] Work Phone: Comment on above: Critical Result(s) C alled at: 04:49:49 04/18/2022 by: NICOLE Matthews [employer]HICLE OPERATOR. Results read back by same. Please Note: New Test Units and Gender Specific Reference Ranges. For more information see Policy Stat Procedure [place] High Sensitivity Troponin (TNIH) and attachments. Estimated Creatinine Clearance Calc 77.69 ml/min [facility] Work Phone: [phone] Estimated GFR (MDRD) Amer 92 mL/min >60 [facility] Work Phone: [phone] Comment on above: GFR Calc Estimated GFR (MDRD) Non-Af Amer 76 mL/min >60 [facility] Work Phone: Comment on above: Non- GFR Calc Platelets bldon 04-18-2022 Platelets (Bld) [#/Vol] 254 10*3/uL 150-450 [facility] Work Phone: [phone] Serum or plasma calcium brenda urement (mass/volume)on 04-18-2022 Calcium [Mass/Vol] 8.5 mg/dL 8.5-10.1 [facility] Work Phone: Comment on above: Moderate Lipemia, Re sult may be falsely decreased. Serum or plasma creatinine m easurement (mass/volume)on 04-18-2022 Creatinine [Mass/Vol] 1.05 mg/dL 0.70-1.30 [facility] Work Phone: Comment on above: The validity of the calculated GFR & GFRAA in patients over 70 years has not been determined. Clinical correlation is essential. Serum or plasma urea nitroge n measurement (mass/volume)on 04-18-2022 Urea nitrogen [Mass/Vol] 18 mg/dL 7-18 [facility] Work Phone: Thin prep Papanicolaou smear with manual screeningon 04-18-2022 Thin prep Papanicolaou smear with manual screening 5 5-15 [facility] Work Phone: Laboratory - Hematology and Cell countson 04-09-2022 HbA1c (Bld) [Mass fraction] 12.5 % 4.2-6.3 [facility] CNOVon 02-04-2022 CNOV Office Visit (GENSWS ) JAYLEN MEJIA ([id number]) 1960 Omar Date Time Provider Department 02/04/22 [...] non-ST elevation myocardial infarction (NSTEMI) 06/11/[address] Herrera Espinosa Hypertension Other emphysema (HCC) [...] repair of (more content not included)... Normal [facility] CNOVon 01-28-2022 CNOV Office Visit (JOVANNA ) JAYLEN MEJIA ([id number]) 1960 M Date Time Provider Department 01/28/22 [...] non-ST elevation myocardial infarction (NSTEMI) 06/11/[address] Herrera Espinosa Hypertension Other emphysema (HCC) [...] and ROS (more content not included)... Normal [facility] CT PELVIS WO IVCONon 022 CT PELVIS WO IVCON * * *Final Report* * * DATE OF EXAM: Jan 28 2022 10:28AM [facility] 0556 - CT PELVIS WO IVCON [...] Fat-containing left inguinal hernia. Scattered colonic diverticula. Casino Assistant Manager: [facility] Transcribe Date/Time: Jan 29 2022 10:59A Dictated by : ELVA BOWDEN MD This examination was interpreted and the report reviewed and electronically signed by: ELVA BOWDEN MD on Jan 29 2022 11:22AM EST [id number] N [facility] CNOVon 01-06-2022 CNOV Office Visit (GENSWS ) JAYLEN MEJIA ([id number]) 1960 M Date Time Provider Department 01/06/22 [...] non-ST elevation myocardial infarction (NSTEMI) 06/11/[address] Herrera Espinosa Hypertension Other emphysema (HCC) [...] gauge x (more content not included)... Normal [facility] Absolute lymphocyte counton 01-01-2022 Lymphocytes Auto (Unsp spec) [#/Vol] 2.63 10*3/uL 0.83-4.51 [facility] Work Phone: Basophil percentageon 2021 Basophils/100 WBC (Bld) 0.3 % 0-1 [facility] Work Phone: Chloride [Moles/Vol] 98 mmol/L 98-107 [facility] Work Phone: Eosinophils/100 WBC (Bld) 3.4 % 0-5 [facility] Work Phone: Glucose [Mass/Vol] 283 mg/dL 74-106 [facility] Work Phone: Comment on above: Moderate Lipemia, Re sult may be falsely increased.Glucose result greater than or equal to 200 mg/dLsuggests DIABETES MELLITUS per A.D.A. criteria. Neutrophils (Bld) [#/Vol] 3.5 10*3/uL 2.0-7.7 [facility] Work Phone: Neutrophils/100 WBC (Bld) 51.0 % 47-70 [facility] Work Phone: [phone] Potassium [Moles/Vol] 4.2 mmol/L 3.5-5.1 [facility] Work Phone: Comment on above: Moderate Hemolysis, Result may be falsely increased. Sodium [Moles/Vol] 133 mmol/L 136-145 [facility] Work Phone: WBC (Bld) [#/Vol] 6.8 10*3/uL 4.4-11.0 [facility] Work Phone: Blood erythrocytes count (nu mber/volume)on 01-01-2022 RBC (Bld) [#/Vol] 4.96 10*6/uL 4.6-6.2 [facility] Work Phone: Blood hemoglobin measurement (mass/volume)on 01-01-2022 Hemoglobin (Bld) [Mass/Vol] 16.4 g/dL 13.0-16.5 [facility] Work Phone: Blood lymphocytes/100 leukoc yteson 01-01-2022 Lymphocytes/100 WBC (Bld) 38.7 % 19-41 [facility] Work Phone: Blood monocytes/100 leukocyt eson 01-01-2022 Monocytes/100 WBC (Bld) 6.3 % 0-10 [facility] Work Phone: Blood platelet mean volumeon 01-01-2022 Platelet mean volume (Bld) [Entitic vol] 10.3 fL 6.2-12.0 [facility] Work Phone: [phone] Determination of erythrocyte mean corpuscular volume (MCV)on 01-01-2022 MCV (RBC) [Entitic vol] 93.5 fL 80-94 [facility] Work Phone: [phone] Hematocrit Auto (Bld) [Volum e fraction]on 01-01-2022 Hematocrit (Bld) [Volume fraction] 46.4 % 40-54 [facility] Work Phone: [phone] Laboratory - Chemistry and C hemistry - challengeon 01-01-2022 CO2 [Moles/Vol] 30.0 mmol/L 21.0-32.0 [facility] Work Phone: [phone] Urea nitrogen/Creatinine [Mass ratio] 15.3 mg/mg 10-20 [facility] Work Phone: [phone] Laboratory - Hematology and Cell countson 01-01-2022 Erythrocyte distribution width (RBC) [Entitic vol] 41.0 fL 35.1-43.9 [facility] Work Phone: [phone] Erythrocyte distribution width (RBC) [Ratio] 11.9 % 11.6-14.6 [facility] Work Phone: [phone] Immature granulocytes/100 WBC (Bld) 0.300 % 0.0-0.9 [facility] Work Phone: [phone] Comment on above: IG% - Immature Granu locytes (promyelocytes, myelocytes and metamyelocytes) > 1% indicates that a LEFT SHIFT is Present. MCH (RBC) [Entitic mass] 33.1 pg 27.0-32.0 [facility] Work Phone: [phone] Nucleated RBC/100 WBC (Bld) [Ratio] 0 % 0-5 [facility] Work Phone: [phone] MCHC Auto (RBC) [Mass/Vol]on 01-01-2022 MCHC (RBC) [Mass/Vol] 35.3 g/dL 32-36 [facility]: [phone] No Panel Informationon 01-01 Estimated GFR (MDRD) Amer 100 mL/min >60 [facility] Work Phone: Comment on above: GFR Calc Estimated GFR (MDRD) Non-Af Amer 82 mL/min >60 [facility] Work Phone: Comment on above: Non- GFR Calc Vitamin D 25-Hydroxy 13.3 ng/mL [facility] Work Phone: Comment on above: Vitamin D 25(OH) Sta tus Range Deficiency <20 ng/mL (50nmol/L) Insufficiency 20 - 30 ng/mL (50 - 75 nmol/L) Sufficiency 30 - 100 ng/mL (75 - 250 nmol/L) Toxicity >100 ng/mL (>250 nmol/L) Platelets bldon 01-01-2022 Platelets (Bld) [#/Vol] 258 10*3/uL 150-450 [facility] Work Phone: Serum or plasma calcium brenda urement (mass/volume)on 01-01-2022 Calcium [Mass/Vol] 8.2 mg/dL 8.5-10.1 [facility] Work Phone: Comment on above: Moderate Lipemia, Re sult may be falsely decreased. Serum or plasma creatinine m easurement (mass/volume)on 01-01-2022 Creatinine [Mass/Vol] 0.98 mg/dL 0.70-1.30 [facility] Work Phone: Comment on above: The validity of the calculated GFR & GFRAA in patients over 70 years has not been determined. Clinical correlation is essential. Serum or plasma urea nitroge n measurement (mass/volume)on 01-01-2022 Urea nitrogen [Mass/Vol] 15 mg/dL 7-18 [facility] Work Phone: Thin prep Papanicolaou smear with manual screeningon 01-01-2022 Thin prep Papanicolaou smear with manual screening 5 5-15 [facility] Work Phone: Whole blood hemoglobin A1c/t otal hemoglobin ratio (mass fraction)on 01-01-2022 HbA1c (Bld) [Mass fraction] 11.6 % 3.8-5.6 [facility] Work Phone: Comment on above: Normal < 5.7 % Predi abetic 5.7 - 6.4 % Diabetic >or= 6.5 % Please note range changes. 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 Normal [facility] No Panel Informationon 07-18 Influenza Types A,B Direct FA (PORFIRIO) [facility] Work Phone: Basophil percentageon 2021 Chloride [Moles/Vol] 92 mmol/L 98-107 [facility] Work Phone: Cholesterol [Mass/Vol] 384 mg/dL <200 [facility] Work Phone: Comment on above: Moderate Icterus, Re sult may be falsely decreased. <200 mg/dL Desirable 200-240 mg/dL Borderline >240 mg/dL High Risk Glucose [Mass/Vol] 351 mg/dL 74-106 [facility] Work Phone: Comment on above: Moderate Lipemia, Re sult may be falsely increased.Glucose result greater than or equal to 200 mg/dLsuggests DIABETES MELLITUS per A.D.A. criteria. Potassium [Moles/Vol] 4.3 mmol/L 3.5-5.1 [facility] Work Phone: Comment on above: Moderate Hemolysis, Result may be falsely increased. Sodium [Moles/Vol] 127 mmol/L 136-145 [facility] Work Phone: Triglyceride [Mass/Vol] mg/dL [facility] Work Phone: [phone] Comment on above: The drugs N-Acetylcy steine and Metamizole may falsely depress this assay. Laboratory - Chemistry and C hemistry - challengeon 06-13-2021 CO2 [Moles/Vol] 29.0 mmol/L 21.0-32.0 [facility] Work Phone: Urea nitrogen/Creatinine [Mass ratio] 18.6 mg/mg 10-20 [facility] Work Phone: No Panel Informationon 06-13 Estimated GFR (MDRD) Amer 101 mL/min >60 [facility] Work Phone: Comment on above: GFR Calc Estimated GFR (MDRD) Non-Af Amer 84 mL/min >60 [facility] Work Phone: Comment on above: Non- GFR Calc Serum or plasma calcium brenda urement (mass/volume)on 06-13-2021 Calcium [Mass/Vol] 7.1 mg/dL 8.5-10.1 [facility] Work Phone: Comment on above: Moderate Lipemia, Re sult may be falsely decreased. Serum or plasma cholesterol in HDL measurement (mass/volume)on 06-13-2021 Cholesterol in HDL [Mass/Vol] 32 mg/dL [facility] Work Phone: Comment on above: The drugs N-Acetylcy steine and Metamizole may falsely depress this assay. Reference Range HDL <40 mg/dL Low HDL Cholesterol HDL >or= 60 mg/dL High HDL Cholesterol Serum or plasma cholesterol in VLDL measurement (mass/volume)on 06-13-2021 Cholesterol in VLDL [Mass/Vol] 200 mg/dL 5-40 [facility] Work Phone: Comment on above: Previous reported re sult: TNP mg/dLEdited by: JOHN on 06/13/21:1716 Serum or plasma creatinine m easurement (mass/volume)on 06-13-2021 Creatinine [Mass/Vol] 0.97 mg/dL 0.70-1.30 [facility] Work Phone: Comment on above: Moderate Icterus, Re sult may be falsely decreased.The validity of the calculated GFR & GFRAA in patients over 70 years has not been determined. Clinical correlation is essential. Serum or plasma low density lipoprotein (LDL) cholesterol measurement (mass/volume)on 06-13-2021 Cholesterol in LDL [Mass/Vol] TNP [facility] Work Phone: Comment on above: Test not performed Serum or plasma urea nitroge n measurement (mass/volume)on 06-13-2021 Urea nitrogen [Mass/Vol] 18 mg/dL 7-18 [facility] Work Phone: Thin prep Papanicolaou smear with manual screeningon 06-13-2021 Thin prep Papanicolaou smear with manual screening 6 5-15 [facility] Work Phone: Whole blood hemoglobin A1c/t otal hemoglobin ratio (mass fraction)on 06-13-2021 HbA1c (Bld) [Mass fraction] 11.7 % 3.8-5.6 [facility] Work Phone: Comment on above: Normal < 5.7 % Predi abetic 5.7 - 6.4 % Diabetic >or= 6.5 % Please note range changes. CNOVon 04-01-2021 CNOV Office Visit (UCWSTR ) JAYLEN MEJIA ([id number]) 1960 M Date Time Provider Department 04/01/21 [...] the esophagus (more content not included)... Normal [facility] Influenza virus A and B and SARS-CoV-2 (COVID-19) Ag panel - Upper respiratory specim SARS-CoV-2 (COVID-19) RNA HAYDER+probe Ql (Resp) [facility] Work Phone: No Panel Information SARS-CoV-2 & FLU Antigen (Rapid) [facility] Work Phone: Vital Signs Date Time Vital Sign Value Performing Clinician Facility 08-02-2024 11:29-0400 Body mass index (BMI) [Ratio] 26.6 kg/m2 Dr. Xiang Rogers DO Work Phone: [facility] 08-02-2024 11:29-0400 Body temperature 96.4 [degF] Dr. Xiang Rogers DO Work Phone: [facility] 08-02-2024 11:29-0400 Body weight 84.[address] Xiang Rogers DO Work Phone: [facility] 08-02-2024 11:29-0400 Diastolic blood pressure 66 mm[Hg] Dr. Xiang Rogers DO Work Phone: [facility] 08-02-2024 11:29-0400 Heart rate 87 /min Dr. Xiang Rogers DO Work Phone: [facility] 08-02-2024 11:29-0400 Respiratory rate 16 /min Dr. Xiang Rogers DO Work Phone: [facility] 08-02-2024 11:29-0400 SaO2% (BldA) [Mass fraction] 98 % Dr. Xiang Rogers DO Work Phone: [facility] 08-02-2024 11:29-0400 Systolic blood pressure 118 mm[Hg] Dr. Xiang Rogers DO Work Phone: [facility] 07-29-2024 23:02-0400 Body temperature 97.2 [degF] Dr. Xiang Rogers DO Work Phone: [facility] 07-29-2024 23:02-0400 Diastolic blood pressure 69 mm[Hg] Dr. Xiang Rogers DO Work Phone: [facility] 07-29-2024 23:02-0400 Heart rate 82 /min Dr. Xiang Rogers DO Work Phone: [facility] 07-29-2024 23:02-0400 Respiratory rate 16 /min Dr. Xiang Rogers DO Work Phone: [facility] 07-29-2024 23:02-0400 SaO2% (BldA) [Mass fraction] 95 % Dr. Xiang Rogers DO Work Phone: [facility] 07-29-2024 23:02-0400 Systolic blood pressure 117 mm[Hg] Dr. Xiang Rogers DO Work Phone: [facility] 07-29-2024 20:00-0400 Body mass index (BMI) [Ratio] 26.8 kg/m2 Dr. Xiang Rogers DO Work Phone: [facility] 07-29-2024 20:00-0400 Body weight 87.[address] Xiang Rogers DO Work Phone: [facility] 07-14-2024 10:05-0400 Body temperature 98.2 [degF] Dr. Xiang Rogers DO Work Phone: [facility] 07-14-2024 10:05-0400 Body weight 85.[address] Xiang Rogers DO Work Phone: [facility] 07-14-2024 10:05-0400 Diastolic blood pressure 60 mm[Hg] Dr. Xiang Rogers DO Work Phone: [facility] 07-14-2024 10:05-0400 Heart rate 90 /min Dr. Xiang Rogers DO Work Phone: [facility] 07-14-2024 10:05-0400 Respiratory rate 16 /min Dr. Xiang Rogers DO Work Phone: [facility] 07-14-2024 10:05-0400 SaO2% (BldA) [Mass fraction] 96 % Dr. Xiang Rogers DO Work Phone: [facility] 07-14-2024 10:05-0400 Systolic blood pressure 113 mm[Hg] Dr. Xiang Rogers DO Work Phone: [facility] 07-12-2024 10:03-0400 Body mass index (BMI) [Ratio] 25.9 kg/m2 Dr. Xiang Rogers DO Work Phone: [facility] 07-12-2024 10:03-0400 Body weight 84.[address] Xiang Rogers DO Work Phone: [facility] 07-12-2024 10:03-0400 Diastolic blood pressure 72 mm[Hg] Dr. Xiang Rogers DO Work Phone: [facility] 07-12-2024 10:03-0400 Heart rate 84 /min Dr. Xiang Rogers DO Work Phone: [facility] 07-12-2024 10:03-0400 Respiratory rate 20 /min Dr. Xiang Rogers DO Work Phone: [facility] 07-12-2024 10:03-0400 SaO2% (BldA) [Mass fraction] 96 % Dr. Xiang Rogers DO Work Phone: [facility] 07-12-2024 10:03-0400 Systolic blood pressure 120 mm[Hg] Dr. Xiang Rogers DO Work Phone: [facility] 06-20-2024 10:00-0400 Body temperature 98.1 [degF] Dr. Xiang Rogers DO Work Phone: [facility] 06-20-2024 10:00-0400 Diastolic blood pressure 68 mm[Hg] Dr. Xiang Rogers DO Work Phone: [facility] 06-20-2024 10:00-0400 Heart rate 74 /min Dr. Xiang Rogers DO Work Phone: [facility] 06-20-2024 10:00-0400 Respiratory rate 16 /min Dr. Xiang Rogers DO Work Phone: [facility] 06-20-2024 10:00-0400 SaO2% (BldA) [Mass fraction] 99 % Dr. Xiang Rogers DO Work Phone: [facility] 06-20-2024 10:00-0400 Systolic blood pressure 112 mm[Hg] Dr. Xiang Rogers DO Work Phone: [facility] 06-20-2024 04:34-0400 Body mass index (BMI) [Ratio] 26.7 kg/m2 Dr. Xiang Rogers DO Work Phone: [facility] 06-20-2024 04:34-0400 Body weight [address] Xiang Rogers DO Work Phone: [facility] 06-19-2024 10:35-0400 Inhaled oxygen flow rate 1 L/min Dr. Xiang Rogers DO Work Phone: [facility] 06-18-2024 05:54-0400 Inhaled oxygen concentration 30 % Dr. Xiang Rogers DO Work Phone: [facility] 05-21-2024 17:26-0500 Body mass index (BMI) [Ratio] 28.1 kg/m2 Dr. Xiang Rogers DO Work Phone: [facility] 05-21-2024 17:26-0500 Body temperature 98.1 [degF] Dr. Xiang Rogers DO Work Phone: [facility] 05-21-2024 17:26-0500 Body weight 88.[address] Xiang Rogers DO Work Phone: [facility] 05-21-2024 17:26-0500 Diastolic blood pressure 83 mm[Hg] Dr. Xiang Rogers DO Work Phone: [facility] 05-21-2024 17:26-0500 Heart rate 102 /min Dr. Xiang Rogers DO Work Phone: [facility] 05-21-2024 17:26-0500 Respiratory rate 16 /min Dr. Xiang Rogers DO Work Phone: [facility] 05-21-2024 17:26-0500 SaO2% (BldA) [Mass fraction] 97 % Dr. Xiang Rogers DO Work Phone: [facility] 05-21-2024 17:26-0500 Systolic blood pressure 115 mm[Hg] Dr. Xiang Rogers DO Work Phone: [facility] 05-17-2024 12:50-0500 Body temperature 98 [degF] Dr. Xiang Rogers DO Work Phone: [facility] 05-17-2024 12:50-0500 Body weight 86.[address] Xiang Rogers DO Work Phone: [facility] 05-17-2024 12:50-0500 Diastolic blood pressure 70 mm[Hg] Dr. Xiang Rogers DO Work Phone: [facility] 05-17-2024 12:50-0500 Heart rate 90 /min Dr. Xiang Rogers DO Work Phone: [facility] 05-17-2024 12:50-0500 Respiratory rate 16 /min Dr. Xiang Rogers DO Work Phone: [facility] 05-17-2024 12:50-0500 SaO2% (BldA) [Mass fraction] 97 % Dr. Xiang Rogers DO Work Phone: [facility] 05-17-2024 12:50-0500 Systolic blood pressure 108 mm[Hg] Dr. Xiang Rogers DO Work Phone: [facility] 05-03-2024 10:53-0500 Body mass index (BMI) [Ratio] 27.6 kg/m2 Dr. Xiang Rogers DO Work Phone: [facility] 05-03-2024 10:53-0500 Body temperature 97.8 [degF] Dr. Xiang Rogers DO Work Phone: [facility] 05-03-2024 10:53-0500 Body weight 87.[address] Xiang Rogers DO Work Phone: [facility] 05-03-2024 10:53-0500 Diastolic blood pressure 62 mm[Hg] Dr. Xiang Rogers DO Work Phone: [facility] 05-03-2024 10:53-0500 Heart rate 93 /min Dr. Xiang Rogers DO Work Phone: [facility] 05-03-2024 10:53-0500 Respiratory rate 18 /min Dr. Xiang Rogers DO Work Phone: [facility] 05-03-2024 10:53-0500 SaO2% (BldA) [Mass fraction] 97 % Dr. Xiang Rogers DO Work Phone: [facility] 05-03-2024 10:53-0500 Systolic blood pressure 120 mm[Hg] Dr. Xiang Rogers DO Work Phone: [facility] 04-20-2024 07:15-0500 Body weight 87.[address] Xiang Rogers DO Work Phone: [facility] 04-19-2024 08:51-0500 Body mass index (BMI) [Ratio] 27.8 kg/m2 Dr. Xiang Rogers DO Work Phone: [facility] 04-08-2024 13:27-0500 Body temperature 98.2 [degF] Dr. Xiang Rogers DO Work Phone: [facility] 04-08-2024 13:27-0500 Body weight 87.[address] Xiang Rogers DO Work Phone: [facility] 04-08-2024 13:27-0500 Diastolic blood pressure 74 mm[Hg] Dr. Xiang Rogers DO Work Phone: [facility] 04-08-2024 13:27-0500 Heart rate 78 /min Dr. Xiang Rogers DO Work Phone: [facility] 04-08-2024 13:27-0500 Respiratory rate 16 /min Dr. Xiang Rogers DO Work Phone: [facility] 04-08-2024 13:27-0500 SaO2% (BldA) [Mass fraction] 97 % Dr. Xiang Rogers DO Work Phone: [facility] 04-08-2024 13:27-0500 Systolic blood pressure 127 mm[Hg] Dr. Xiang Rogers DO Work Phone: [facility] 04-01-2024 09:51-0500 Body mass index (BMI) [Ratio] 27.8 kg/m2 Dr. Xiang Rogers DO Work Phone: [facility] 04-01-2024 09:51-0500 Body weight 87.[address] Xiang Rogers DO Work Phone: [facility] 04-01-2024 09:51-0500 Diastolic blood pressure 80 mm[Hg] Dr. Xiang Rogers DO Work Phone: [facility] 04-01-2024 09:51-0500 Heart rate 76 /min Dr. Xiang Rogers DO Work Phone: [facility] 04-01-2024 09:51-0500 Respiratory rate 18 /min Dr. Xiang Rogers DO Work Phone: [facility] 04-01-2024 09:51-0500 SaO2% (BldA) [Mass fraction] 99 % Dr. Xiang Rogers DO Work Phone: [facility] 04-01-2024 09:51-0500 Systolic blood pressure 136 mm[Hg] Dr. Xiang Rogers DO Work Phone: [facility] 03-22-2024 11:03-0500 Body temperature 97.8 [degF] Dr. Xiang Rogers DO Work Phone: [facility] 03-22-2024 11:03-0500 Body weight 87.[address] Xiang Rogers DO Work Phone: [facility] 03-22-2024 11:03-0500 Diastolic blood pressure 59 mm[Hg] Dr. Xiang Rogers DO Work Phone: [facility] 03-22-2024 11:03-0500 Heart rate 90 /min Dr. Xiang Rogers DO Work Phone: [facility] 03-22-2024 11:03-0500 Respiratory rate 16 /min Dr. Xiang Rogers DO Work Phone: [facility] 03-22-2024 11:03-0500 SaO2% (BldA) [Mass fraction] 97 % Dr. Xiang Rogers DO Work Phone: [facility] 03-22-2024 11:03-0500 Systolic blood pressure 112 mm[Hg] Dr. Xiang Rogers DO Work Phone: [facility] 02-24-2024 13:07-0500 Body mass index (BMI) [Ratio] 27.9 kg/m2 Dr. Xiang Rogers DO Work Phone: [facility] 02-24-2024 13:07-0500 Body temperature 97.6 [degF] Dr. Xiang Rogers DO Work Phone: [facility] 02-24-2024 13:07-0500 Body weight 88.[address] Xiang Rogers DO Work Phone: [facility] 02-24-2024 13:07-0500 Diastolic blood pressure 76 mm[Hg] Dr. Xiang Rogers DO Work Phone: [facility] 02-24-2024 13:07-0500 Heart rate 72 /min Dr. Xiang Rogers DO Work Phone: [facility] 02-24-2024 13:07-0500 Respiratory rate 16 /min Dr. Xiang Rogers DO Work Phone: [facility] 02-24-2024 13:07-0500 SaO2% (BldA) [Mass fraction] 97 % Dr. Xiang Rogers DO Work Phone: [facility] 02-24-2024 13:07-0500 Systolic blood pressure 126 mm[Hg] Dr. Xiang Rogers DO Work Phone: [facility] 02-24-2024 11:24-0500 Body temperature 98.4 [degF] Dr. Xiang Rogers DO Work Phone: [facility] 02-24-2024 11:24-0500 Body weight 88.[address] Xiang Rogers DO Work Phone: [facility] 02-24-2024 11:24-0500 Diastolic blood pressure 61 mm[Hg] Dr. Xiang Rogers DO Work Phone: [facility] 02-24-2024 11:24-0500 Heart rate 64 /min Dr. Xiang Rogers DO Work Phone: [facility] 02-24-2024 11:24-0500 Respiratory rate 16 /min Dr. Xiang Rogers DO Work Phone: [facility] 02-24-2024 11:24-0500 SaO2% (BldA) [Mass fraction] 98 % Dr. Xiang Rogers DO Work Phone: [facility] 02-24-2024 11:24-0500 Systolic blood pressure 105 mm[Hg] Dr. Xiang Rogers DO Work Phone: [facility] 12-31-2023 09:26-0400 Body mass index (BMI) [Ratio] 25.95 kg/m2 Gab Culver APRN.[employer] Work Phone: [facility] 12-31-2023 09:26-0400 Body temperature 97.5 [degF] Gab Culver JEWEL SETTER.[employer] Work Phone: [facility] 12-31-2023 09:26-0400 Body weight 84.4 kg Gab Culver JEWEL SETTER[employer] Work Phone: [facility] 12-31-2023 09:26-0400 Diastolic blood pressure 75 mm[Hg] Gab Culver JEWEL SETTER[employer] Work Phone: [facility] 12-31-2023 09:26-0400 Heart rate 78 /min Gab Culver JEWEL [employer]TER[employer] Work Phone: [facility] 12-31-2023 09:26-0400 Respiratory rate 18 /min Gab Culver J[employer]EL [employer]TER[employer] Work Phone: [facility] 12-31-2023 09:26-0400 SaO2% (BldA) [Mass fraction] 96 % Gab Culver J[employer]EL [employer]TER[employer] Work Phone: [facility] 12-31-2023 09:26-0400 Systolic blood pressure 126 mm[Hg] Gab Culver APRN.CNP Work Phone: [facility] 06-02-2023 12:53-0500 Body height 180.[address] Xiang Rogers Work Phone: [facility] 06-02-2023 12:53-0500 Body mass index (BMI) [Ratio] 26.9 kg/m2 Dr. Xiang Rogers Work Phone: [facility] 06-02-2023 12:53-0500 Body temperature 97.4 [degF] Dr. Xiang Rogers Work Phone: [facility] 06-02-2023 12:53-0500 Body weight 87.[address] Xiang Rogers Work Phone: [facility] 06-02-2023 12:53-0500 Diastolic blood pressure 66 mm[Hg] Dr. Xiang Rogers Work Phone: [facility] 06-02-2023 12:53-0500 Heart rate 60 /min Dr. Xiang Rogers Work Phone: [facility] 06-02-2023 12:53-0500 Respiratory rate 18 /min Dr. Xiang Rogers Work Phone: [facility] 06-02-2023 12:53-0500 SaO2% (BldA) [Mass fraction] 96 % Dr. Xiang Rogers Work Phone: [facility] 06-02-2023 12:53-0500 Systolic blood pressure 125 mm[Hg] Dr. Xiang Rogers Work Phone: [facility] 05-24-2023 02:38-0500 Body temperature 97.7 [degF] Dr. Xiang Rogers Work Phone: [facility] 05-24-2023 02:38-0500 Diastolic blood pressure 61 mm[Hg] Dr. Xiang Rogers Work Phone: [facility] 05-24-2023 02:38-0500 Heart rate 71 /min Dr. Xiang Rogers Work Phone: [facility] 05-24-2023 02:38-0500 Respiratory rate 18 /min Dr. Xiang Rogers Work Phone: [facility] 05-24-2023 02:38-0500 SaO2% (BldA) [Mass fraction] 96 % Dr. Xiang Rogers Work Phone: [facility] 05-24-2023 02:38-0500 Systolic blood pressure 99 mm[Hg] Dr. Xiang Rogers Work Phone: [facility] 05-24-2023 00:23-0500 Body height 180.[address] Xiang Rogers Work Phone: [facility] 05-24-2023 00:23-0500 Body mass index (BMI) [Ratio] 25.8 kg/m2 Dr. Xiang Rogers Work Phone: [facility] 05-24-2023 00:23-0500 Body weight [address] Xiang Rogers Work Phone: [facility] 04-25-2023 17:36-0500 Body temperature 95 [degF] Dr. Xiang Rogers Work Phone: [facility] 04-25-2023 17:36-0500 Diastolic blood pressure 73 mm[Hg] Dr. Xiang Rogers Work Phone: [facility] 04-25-2023 17:36-0500 Heart rate 67 /min Dr. Xiang Rogers Work Phone: [facility] 04-25-2023 17:36-0500 Respiratory rate 18 /min Dr. Xiang Rogers Work Phone: [facility] 04-25-2023 17:36-0500 Systolic blood pressure 139 mm[Hg] Dr. Xiang Rogers Work Phone: [facility] 04-25-2023 15:25-0500 Body height 180.[address] Xiang Rogers Work Phone: [facility] 04-25-2023 15:25-0500 Body mass index (BMI) [Ratio] 26.7 kg/m2 Dr. Xiang Rogers Work Phone: [facility] 04-25-2023 15:25-0500 Body weight 87.[address] Xiang Rogers Work Phone: [facility] 04-25-2023 15:25-0500 SaO2% (BldA) [Mass fraction] 96 % Dr. Xiang Rogers Work Phone: [facility] 04-15-2023 09:24-0500 Body height 180.[address] Xiang Rogers Work Phone: [facility] 04-15-2023 09:24-0500 Body mass index (BMI) [Ratio] 26.9 kg/m2 Dr. Xiang Rogers Work Phone: [facility] 04-15-2023 09:24-0500 Body temperature 97.2 [degF] Dr. Xiang Rogers Work Phone: [facility] 04-15-2023 09:24-0500 Body weight 87.[address] Xiang Rogers Work Phone: [facility] 04-15-2023 09:24-0500 Diastolic blood pressure 70 mm[Hg] Dr. Xiang Rogers Work Phone: [facility] 04-15-2023 09:24-0500 Heart rate 81 /min Dr. Xiang Rogers Work Phone: [facility] 04-15-2023 09:24-0500 Respiratory rate 16 /min Dr. Xiang Rogers Work Phone: [facility] 04-15-2023 09:24-0500 SaO2% (BldA) [Mass fraction] 98 % Dr. Xiang Rogers Work Phone: [facility] 04-15-2023 09:24-0500 Systolic blood pressure 128 mm[Hg] Dr. Xiang Rogers Work Phone: [facility] 01-26-2023 15:28-0400 Body mass index (BMI) [Ratio] 27.3 kg/m2 Dr. Xiang Rogers Work Phone: [facility] 01-26-2023 15:28-0400 Body weight 88.[address] Xiang Rogers Work Phone: [facility] 01-26-2023 15:28-0400 Diastolic blood pressure 56 mm[Hg] Dr. Xiang Rogesr Work Phone: [facility] 01-26-2023 15:28-0400 Heart rate 70 /min Dr. Xiang Rogers Work Phone: [facility] 01-26-2023 15:28-0400 Respiratory rate 18 /min Dr. Xiang Rogers Work Phone: [facility] 01-26-2023 15:28-0400 Systolic blood pressure 118 mm[Hg] Dr. Xiang Rogers Work Phone: [facility] 01-13-2023 09:27-0400 Body mass index (BMI) [Ratio] 27 kg/m2 Dr. Xiang Rogers Work Phone: [facility] 01-13-2023 09:27-0400 Body temperature 98.4 [degF] Dr. Xiang Rogers Work Phone: [facility] 01-13-2023 09:27-0400 Body weight 87.[address] Xiang Rogers Work Phone: [facility] 01-13-2023 09:27-0400 Diastolic blood pressure 70 mm[Hg] Dr. Xiang Rogers Work Phone: [facility] 01-13-2023 09:27-0400 Heart rate 61 /min Dr. Xiang Rogers Work Phone: [facility] 01-13-2023 09:27-0400 Respiratory rate 16 /min Dr. Xiang Rogers Work Phone: [facility] 01-13-2023 09:27-0400 SaO2% (BldA) [Mass fraction] 97 % Dr. Xiang Rogers Work Phone: [facility] 01-13-2023 09:27-0400 Systolic blood pressure 120 mm[Hg] Dr. Xiang Rogers Work Phone: [facility] 05-21-2022 01:34-0500 Body height 180.[address] Xiang Rogers Work Phone: [facility] 05-21-2022 01:34-0500 Body mass index (BMI) [Ratio] 29.1 kg/m2 Dr. Xiang Rogers Work Phone: [facility] 05-21-2022 01:34-0500 Body temperature 98.8 [degF] Dr. Xiang Rogers Work Phone: [facility] 05-21-2022 01:34-0500 Body weight 94.[address] Xiang Rogers Work Phone: [facility] 05-21-2022 01:34-0500 Diastolic blood pressure 79 mm[Hg] Dr. Xiang Rogers Work Phone: [facility] 05-21-2022 01:34-0500 Heart rate 74 /min Dr. Xiang Rogers Work Phone: [facility] 05-21-2022 01:34-0500 Respiratory rate 17 /min Dr. Xiang Rogers Work Phone: [facility] 05-21-2022 01:34-0500 SaO2% (BldA) [Mass fraction] 98 % Dr. Xiang Rogers Work Phone: [facility] 05-21-2022 01:34-0500 Systolic blood pressure 143 mm[Hg] Dr. Xiang Rogers Work Phone: [facility] 05-19-2022 13:35-0500 Body mass index (BMI) [Ratio] 28.5 kg/m2 Dr. Xiang Rogers Work Phone: [facility] 05-19-2022 13:35-0500 Body weight 92.[address] Xiang Rogers Work Phone: [facility] 05-19-2022 13:35-0500 Diastolic blood pressure 69 mm[Hg] Dr. Xiang Rogers Work Phone: [facility] 05-19-2022 13:35-0500 Heart rate 62 /min Dr. Xiang Rogers Work Phone: [facility] 05-19-2022 13:35-0500 Respiratory rate 18 /min Dr. Xiang Rogers Work Phone: [facility] 05-19-2022 13:35-0500 SaO2% (BldA) [Mass fraction] 96 % Dr. Xiang Rogers Work Phone: [facility] 05-19-2022 13:35-0500 Systolic blood pressure 128 mm[Hg] Dr. Xiang Rogers Work Phone: [facility] 04-24-2022 13:27-0500 Body mass index (BMI) [Ratio] 28.3 kg/m2 Dr. Xiang Rogers Work Phone: [facility] 04-24-2022 13:27-0500 Body temperature 98.3 [degF] Dr. Xiang Rogers Work Phone: [facility] 04-24-2022 13:27-0500 Body weight 92.[address] Xiang Rogers Work Phone: [facility] 04-24-2022 13:27-0500 Diastolic blood pressure 62 mm[Hg] Dr. Xiang Rogers Work Phone: [facility] 04-24-2022 13:27-0500 Heart rate 61 /min Dr. Xiang Rogers Work Phone: [facility] 04-24-2022 13:27-0500 Respiratory rate 14 /min Dr. Xiang Rogers Work Phone: [facility] 04-24-2022 13:27-0500 SaO2% (BldA) [Mass fraction] 97 % Dr. Xiang Rogers Work Phone: [facility] 04-24-2022 13:27-0500 Systolic blood pressure 104 mm[Hg] Dr. Xiang Rogers Work Phone: [facility] 04-19-2022 14:53-0500 SaO2% (BldA) [Mass fraction] 95 % Dr. Xiang Rogers Work Phone: [facility] 04-19-2022 09:30-0500 Body temperature 97.9 [degF] Dr. Xiang Rogers Work Phone: [facility] 04-19-2022 09:30-0500 Diastolic blood pressure 77 mm[Hg] Dr. Xiang Rogers Work Phone: [facility] 04-19-2022 09:30-0500 Heart rate 79 /min Dr. Xiang Rogers Work Phone: [facility] 04-19-2022 09:30-0500 Respiratory rate 20 /min Dr. Xiang Rogers Work Phone: [facility] 04-19-2022 09:30-0500 Systolic blood pressure 110 mm[Hg] Dr. Xiang Rogers Work Phone: [facility] 04-18-2022 10:11-0500 Body weight 93.[address] Xiang Rogers Work Phone: [facility] 04-18-2022 05:51-0500 Body temperature 98 [degF] Dr. Xiang Rogers Work Phone: [facility] Work Phone: 04-18-2022 05:51-0500 Diastolic blood pressure 76 mm[Hg] Dr. Xiang Rogers Work Phone: [facility] Work Phone: 04-18-2022 05:51-0500 Heart rate 80 /min Dr. Xiang Rogers Work Phone: [facility] Work Phone: 04-18-2022 05:51-0500 Respiratory rate 18 /min Dr. Xiang Rogers Work Phone: [facility] Work Phone: 04-18-2022 05:51-0500 SaO2% (BldA) [Mass fraction] 92 % Dr. Xiang Rogers Work Phone: [facility] Work Phone: 04-18-2022 05:51-0500 Systolic blood pressure 123 mm[Hg] Dr. Xiang Rogers Work Phone: [facility] Work Phone: 04-18-2022 01:36-0500 Body height 180.[address] Xiang Rogers Work Phone: [facility] Work Phone: 04-18-2022 01:36-0500 Body mass index (BMI) [Ratio] 28.6 kg/m2 Dr. Xiang Rogers Work Phone: [facility] 04-18-2022 01:36-0500 Body weight 93.[address] Xiang Rogers Work Phone: [facility] Work Phone: 04-09-2022 14:00-0500 Body mass index (BMI) [Ratio] 27.4 kg/m2 Dr. Xiang Rogers Work Phone: [facility] 04-09-2022 14:00-0500 Body temperature 98.4 [degF] Dr. Xiang Rogers Work Phone: [facility] 04-09-2022 14:00-0500 Body weight 89.[address] Xiang Rogers Work Phone: [facility] 04-09-2022 14:00-0500 Diastolic blood pressure 78 mm[Hg] Dr. Xiang Rogers Work Phone: [facility] 04-09-2022 14:00-0500 Heart rate 65 /min Dr. Xiang Rogers Work Phone: [facility] 04-09-2022 14:00-0500 Respiratory rate 16 /min Dr. Xiang Rogers Work Phone: [facility] 04-09-2022 14:00-0500 SaO2% (BldA) [Mass fraction] 99 % Dr. Xiang Rogers Work Phone: [facility] 04-09-2022 14:00-0500 Systolic blood pressure 132 mm[Hg] Dr. Xiang Rogers Work Phone: [facility] 03-11-2022 12:30-0500 Body height 180.[address] Xiang Rogres Work Phone: [facility] Work Phone: 03-11-2022 12:30-0500 Body mass index (BMI) [Ratio] 26.9 kg/m2 Dr. Xiang Rogers Work Phone: [facility] 03-11-2022 12:30-0500 Body temperature 98 [degF] Dr. Xiang Rogers Work Phone: [facility] 03-11-2022 12:30-0500 Body weight 87.[address] Xiang Rogers Work Phone: [facility] 03-11-2022 12:30-0500 Diastolic blood pressure 76 mm[Hg] Dr. Xiang Rogers Work Phone: [facility] 03-11-2022 12:30-0500 Heart rate 87 /min Dr. Xiang Rogers Work Phone: [facility] 03-11-2022 12:30-0500 Respiratory rate 16 /min Dr. Xiang Rogers Work Phone: [facility] 03-11-2022 12:30-0500 SaO2% (BldA) [Mass fraction] 97 % Dr. Xiang Rogers Work Phone: [facility] 03-11-2022 12:30-0500 Systolic blood pressure 153 mm[Hg] Dr. Xiang Rogers Work Phone: [facility] 03-01-2022 19:47-0500 Body height 180.[address] Xiang Rogers Work Phone: [facility] Work Phone: 03-01-2022 19:47-0500 Body mass index (BMI) [Ratio] 27.9 kg/m2 Dr. Xiang Rogers Work Phone: [facility] 03-01-2022 19:47-0500 Body temperature 96.8 [degF] Dr. Xiang Rogers Work Phone: [facility] 03-01-2022 19:47-0500 Body weight [address] Xiang Rogers Work Phone: [facility] 03-01-2022 19:47-0500 Diastolic blood pressure 75 mm[Hg] Dr. Xiang Rogers Work Phone: [facility] 03-01-2022 19:47-0500 Heart rate 103 /min Dr. Xiang Rogers Work Phone: [facility] 03-01-2022 19:47-0500 Respiratory rate 16 /min Dr. Xiang Rogers Work Phone: [facility] 03-01-2022 19:47-0500 SaO2% (BldA) [Mass fraction] 94 % Dr. Xiang Rogers Work Phone: [facility] 03-01-2022 19:47-0500 Systolic blood pressure 141 mm[Hg] Dr. Xiang Rogers Work Phone: [facility] 02-04-2022 08:30-0400 Body temperature 98.01 [degF] Yamilka Parekh MD Work Phone: [facility] 02-04-2022 08:30-0400 Body weight 87.18 kg Yamilka Parekh MD Work Phone: [facility] 02-04-2022 08:30-0400 Diastolic blood pressure 74 mm[Hg] Yamilka Parekh MD Work Phone: [facility] 02-04-2022 08:30-0400 Heart rate 80 /min Yamilka Parekh MD Work Phone: [facility] 02-04-2022 08:30-0400 SaO2% (BldA) [Mass fraction] 98 % Yamilka Parekh MD Work Phone: [facility] 02-04-2022 08:30-0400 Systolic blood pressure 128 mm[Hg] Yamilka Parekh MD Work Phone: [facility] 01-28-2022 10:40-0400 Body height 180.3 cm Yamilka Parekh MD Work Phone: [facility] 01-28-2022 10:40-0400 Body temperature 97.3 [degF] Yamilka Parekh MD Work Phone: [facility] 01-28-2022 10:40-0400 Body weight 87.36 kg Yamilka Parekh MD Work Phone: [facility] 01-28-2022 10:40-0400 Diastolic blood pressure 70 mm[Hg] Yamilka Parekh MD Work Phone: [facility] 01-28-2022 10:40-0400 Heart rate 79 /min Yamilka Parekh MD Work Phone: [facility] 01-28-2022 10:40-0400 SaO2% (BldA) [Mass fraction] 98 % Yamilka Parekh MD Work Phone: [facility] 01-28-2022 10:40-0400 Systolic blood pressure 124 mm[Hg] Yamilka Parekh MD Work Phone: [facility] 01-06-2022 09:25-0400 Body height 180.3 cm Yamilka Parekh MD Work Phone: [facility] 01-06-2022 09:25-0400 Body temperature 97.7 [degF] Yamilka Parekh MD Work Phone: [facility] 01-06-2022 09:25-0400 Body weight 88.27 kg Ymailka Parekh MD Work Phone: [facility] 01-06-2022 09:25-0400 Diastolic blood pressure 77 mm[Hg] Yamilka Parekh MD Work Phone: [facility] 01-06-2022 09:25-0400 Heart rate 84 /min Yamilka Parekh MD Work Phone: [facility] 01-06-2022 09:25-0400 SaO2% (BldA) [Mass fraction] 99 % Yamilka Parekh MD Work Phone: [facility] 01-06-2022 09:25-0400 Systolic blood pressure 160 mm[Hg] Yamilka Parekh MD Work Phone: [facility] 01-01-2022 14:08-0400 Body height 180.[address] Xiang Rogers Work Phone: [facility] Work Phone: 01-01-2022 14:08-0400 Body mass index (BMI) [Ratio] 27.3 kg/m2 Dr. Xiang Rogers Work Phone: [facility] Work Phone: 01-01-2022 14:08-0400 Body temperature 98.5 [degF] Dr. Xiang Rogers Work Phone: [facility] Work Phone: 01-01-2022 14:08-0400 Body weight 89.[address] Xiang Rogers Work Phone: [facility] Work Phone: 01-01-2022 14:08-0400 Diastolic blood pressure 64 mm[Hg] Dr. Xiang Rogers Work Phone: [facility] Work Phone: 01-01-2022 14:08-0400 Heart rate 64 /min Dr. Xiang Rogers Work Phone: [facility] Work Phone: 01-01-2022 14:08-0400 Respiratory rate 18 /min Dr. Xiang Rogers Work Phone: [facility] Work Phone: 01-01-2022 14:08-0400 SaO2% (BldA) [Mass fraction] 95 % Dr. Xiang Rogers Work Phone: [facility] Work Phone: 01-01-2022 14:08-0400 Systolic blood pressure 122 mm[Hg] Dr. Xiang Rogers Work Phone: [facility] Work Phone: 12-09-2021 01:16-0400 Diastolic blood pressure 71 mm[Hg] Dr. Xiang Rogers Work Phone: [facility] Work Phone: 12-09-2021 01:16-0400 Heart rate 74 /min Dr. Xiang Rogers Work Phone: [facility] Work Phone: 12-09-2021 01:16-0400 Respiratory rate 19 /min Dr. Xiang Rogers Work Phone: [facility] Work Phone: 12-09-2021 01:16-0400 SaO2% (BldA) [Mass fraction] 95 % Dr. Xiang Rogers Work Phone: [facility] Work Phone: 12-09-2021 01:16-0400 Systolic blood pressure 144 mm[Hg] Dr. Xiang Rogers Work Phone: [facility] Work Phone: 12-08-2021 23:18-0400 Body height 180.[address] Xiang Rogers Work Phone: [facility] Work Phone: 12-08-2021 23:18-0400 Body mass index (BMI) [Ratio] 26.4 kg/m2 Dr. Xiang Rogers Work Phone: [facility] Work Phone: 12-08-2021 23:18-0400 Body temperature 97.9 [degF] Dr. Xiang Rogers Work Phone: [facility] Work Phone: 12-08-2021 23:18-0400 Body weight 86.[address] Xiang Rogers Work Phone: [facility] Work Phone: 09-18-2021 14:32-0400 Body mass index (BMI) [Ratio] 26.7 kg/m2 Dr. Xiang Rogers Work Phone: [facility] Work Phone: 09-18-2021 14:32-0400 Body temperature 97.2 [degF] Dr. Xiang Rogers Work Phone: [facility] Work Phone: 09-18-2021 14:32-0400 Body weight 87.[address] Xiang Rogers Work Phone: [facility] Work Phone: 09-18-2021 14:32-0400 Diastolic blood pressure 70 mm[Hg] Dr. Xiang Rogers Work Phone: [facility] Work Phone: 09-18-2021 14:32-0400 Heart rate 86 /min Dr. Xiang Rogers Work Phone: [facility] Work Phone: 09-18-2021 14:32-0400 Respiratory rate 16 /min Dr. Xiang Rogers Work Phone: [facility] Work Phone: 09-18-2021 14:32-0400 SaO2% (BldA) [Mass fraction] 97 % Dr. Xiang Rogers Work Phone: [facility] Work Phone: 09-18-2021 14:32-0400 Systolic blood pressure 116 mm[Hg] Dr. Xiang Rogers Work Phone: [facility] Work Phone: 07-19-2021 00:14-0400 Heart rate 78 /min Dr. Xiang Rogers Work Phone: [facility] Work Phone: 07-19-2021 00:14-0400 Respiratory rate 18 /min Dr. Xiang Roegrs Work Phone: [facility] Work Phone: 07-19-2021 00:14-0400 SaO2% (BldA) [Mass fraction] 95 % Dr. Xiang Rogers Work Phone: [facility] Work Phone: 07-18-2021 20:48-0400 Body height 180.[address] Xiang Rogers Work Phone: [facility] Work Phone: 07-18-2021 20:48-0400 Body mass index (BMI) [Ratio] 26.9 kg/m2 Dr. Xiang Rogers Work Phone: [facility] Work Phone: 07-18-2021 20:48-0400 Body temperature 98.8 [degF] Dr. Xiang Rogers Work Phone: [facility] Work Phone: 07-18-2021 20:48-0400 Body weight 87.[address] Xiang Rogers Work Phone: [facility] Work Phone: 07-18-2021 20:48-0400 Diastolic blood pressure 83 mm[Hg] Dr. Xiang Rogers Work Phone: [facility] Work Phone: 07-18-2021 20:48-0400 Systolic blood pressure 151 mm[Hg] Dr. Xiang Rogers Work Phone: [facility] Work Phone: 07-18-2021 12:52-0400 Body temperature 98.01 [degF] Gab Culver APRN.[employer] Work Phone: [facility] 07-18-2021 12:52-0400 Body weight 88 kg Gab Culver APRN.[employer] Work Phone: [facility] 07-18-2021 12:52-0400 Diastolic blood pressure 74 mm[Hg] Gab Culver APRN.[employer] Work Phone: [facility] 07-18-2021 12:52-0400 Heart rate 100 /[facility] Work Phone: [facility] 07-18-2021 12:52-0400 Respiratory rate 18 /min [facility] [employer] [employer] Work Phone: [facility] 07-18-2021 12:52-0400 SaO2% (BldA) [Mass fraction] 96 % Gab Culver [employer] Work Phone: [facility] 07-18-2021 12:52-0400 Systolic blood pressure 122 mm[Hg] [facility] [employer] Work Phone: [facility] 06-13-2021 13:57-0500 Body temperature 97.8 [degF] Dr. Xiang Rogers Work Phone: [facility] Work Phone: 06-13-2021 13:57-0500 Body weight 88.[address] Xiang Rogers Work Phone: [facility] Work Phone: 06-13-2021 13:57-0500 Diastolic blood pressure 74 mm[Hg] Dr. Xiang Rogers Work Phone: [facility] Work Phone: 06-13-2021 13:57-0500 Heart rate 68 /min Dr. Xiang Rogers Work Phone: [facility] Work Phone: 06-13-2021 13:57-0500 Respiratory rate 16 /min Dr. Xiang Rogers Work Phone: [facility] Work Phone: 06-13-2021 13:57-0500 SaO2% (BldA) [Mass fraction] 98 % Dr. Xiang Rogers Work Phone: [facility] Work Phone: 06-13-2021 13:57-0500 Systolic blood pressure 130 mm[Hg] Dr. Xiang Rogers Work Phone: [facility] Work Phone: Encounters Encounter Date Encounter Type Care Provider Facility Start: 10-11-2024 ambulatory Xiang Rogers Facilit y:[facility] Start: 09-08-2024 End: 09-08-[address] Xiang Rogers DO Work Phone: [facility] Work Phone: Start: 09-08-2024 End: 09-08-2024 Dr. Saúl Flowers MD -[facility] Start: 09-08-2024 End: 09-08-2024 ambulatory Xiang Rogers Facility:[facility] Start: 08-02-2024 End: 08-02-2024 Dr. Xiang Will DO -[facility] Work Phone: Start: 08-02-2024 End: 08-02-2024 ambulatory Xiang Rogers Facility:[facility] Start: 07-29-2024 End: 07-29-2024 Dr. Lawson Castellon DO -[facility] Dep[facility] t Work Phone: Start: 07-29-2024 End: 07-29-2024 Emergency department patient visit Xiang Rogers Facility:[facility] Start: 07-14-2024 End: 07-14-2024 Lubna DEVINE -[facility] Work Phone: Start: 07-14-2024 End: 07-14-2024 ambulatory Xiang Rogers Facility:[facility] Start: 07-12-2024 End: 07-12-2024 Ronit Galvez [facility] -[facility] Work Phone: Start: 07-12-2024 End: 07-12-2024 ambulatory Xiang Rogers Facility:[facility] Start: 06-20-2024 ambulatory Calos Quinn Facility:[facility] Start: 06-20-2024 Dr. Seth morales DO -[facility] Work Phone: Start: 06-20-2024 Dr. Calos Quinn MD -[facility] Start: 06-19-2024 Dr. Alexandru Mckeon MD -[facility] Start: 06-19-2024 Dr. Donna Wolff MD -[facility] Work Phone: Start: 06-18-2024 ambulatory Alexandru Mckeon Fa cility:[facility] Start: 06-18-2024 Dr. Alexandru Mckeon MD -[facility] Start: 06-18-2024 ambulatory Steve Esteban Facili ty:[facility] Start: 06-18-2024 End: 06-20-2024 Evaluation and management of inpatient Steve Esteban Facility:[facility] Start: 06-18-2024 End: 06-20-2024 Dr. Seth Carrington DO -Progressive Care Unit Work Phone: Start: 06-15-2024 ambulatory Xiang Rogers Facilit y:[facility] Start: 06-15-2024 Non-patient / Non-visit Garret Chacon [facility] Start: 06-15-2024 Magaly frazier [facility] Start: 06-13-2024 Non-patient / Non-visit Dr. Saúl talbert MD -[facility] Start: 06-13-2024 End: 06-13-[address] Xiang Rogers DO Work Phone: [facility] Work Phone: Start: 06-13-2024 End: 06-13-2024 Patient encounter procedure Lubna DEVINE -Cardiovascular Services Work Phone: Start: 06-13-2024 End: 06-13-2024 Dr. Saúl Flowers MD -[facility] Start: 06-13-2024 End: 06-13-2024 ambulatory Lubna Manley Facility:[facility] Start: 06-07-2024 ambulatory Xiang Rogers Facilit y:[facility] Start: 05-21-2024 End: 05-21-2024 Dr. Saúl Aguilar DO -Emergency Departme nt Work Phone: Start: 05-21-2024 End: 05-21-2024 Emergency department patient visit Dr. Saúl Aguilar DO -Emergency Department Work Phone: Start: 05-17-2024 End: 05-17-2024 Patient encounter procedure Lubna DEVINE -[facility] Work Phone: Start: 05-17-2024 End: 05-17-2024 Lubna DEVINE -[facility] Work Phone: Start: 05-17-2024 End: 05-17-2024 ambulatory Lubna Manley Facility:[facility] Start: 05-09-2024 ambulatory Xiang Rogers Facilit y:[facility] Start: 05-09-2024 Non-patient / Non-visit Dr. Ren [place] -[facility] Start: 05-09-2024 End: 05-09-2024 Patient encounter procedure Magaly Abdi PA -Cardiovascular Services Work Phone: Start: 05-09-2024 End: 05-09-2024 ambulatory Xiang Rogers Facility:[facility] Start: 05-03-2024 End: 05-03-[address] Xiang Will DO -[facility] Work Phone: Start: 05-03-2024 End: 05-03-2024 ambulatory Xiang Rogers Facility:[facility] Start: 04-20-2024 ambulatory Xiang Rogers Facilit y:[facility] Start: 04-20-2024 Non-patient / Non-visit Dr. Saúl talbert MD -[facility] Start: 04-20-2024 End: 04-20-2024 Admission to same day surgery center Dr. Saúl Flowers MD -[employer]er/Special Procedures Work Phone: Start: 04-20-2024 End: 04-20-2024 ambulatory Xiang Rogers Facility:[facility] Start: 04-08-2024 End: 04-08-2024 Patient encounter procedure Lubna DEVINE -[facility] Work Phone: Start: 04-08-2024 End: 04-08-2024 ambulatory Xiang Rogers Facility:[facility] Start: 04-01-2024 End: 04-01-2024 Patient encounter procedure Magaly DEVINE -[facility] Work Phone: Start: 04-01-2024 End: 04-01-2024 ambulatory Xiang Rogers Facility:[facility] Start: 03-29-2024 End: 03-29-2024 Patient encounter procedure Lubna DEVINE -[facility] Work Phone: Start: 03-29-2024 End: 03-29-2024 ambulatory Xiang Rogers Facility:[facility] Start: 03-22-2024 End: 03-22-2024 Patient encounter procedure Lubna DEVINE -[facility] Work Phone: Start: 03-22-2024 End: 03-22-2024 ambulatory Xiang Rogers Facility:[facility] Start: 03-09-2024 ambulatory Xiang Rogers Facilit y:[facility] Start: 03-09-2024 Non-patient / Non-visit Dr. Saúl talbert MD -[facility] Start: 03-09-2024 End: 03-09-2024 Patient encounter procedure Jose Small DPM -Cardiovascular Services Work Phone: Start: 03-09-2024 End: 03-09-2024 ambulatory Xiang Rogers Facility:[facility] Start: 02-24-2024 End: 02-24-[address] Xiang Will DO -[facility] Work Phone: Start: 02-24-2024 End: 02-24-2024 ambulatory Xiang Rogers Facility:[facility] Start: 02-24-2024 End: 02-24-2024 Patient encounter procedure Lubna DEVINE -[facility] Work Phone: Start: 02-24-2024 End: 02-24-2024 ambulatory Xiang Rogers Facility:[facility] Start: 02-23-2024 End: 02-23-2024 ambulatory Xiang Rogers Facility:[facility] Start: 01-27-2024 ambulatory Xiang Rogers Facilit y:[facility] Start: 01-07-2024 End: 01-07-2024 ambulatory Xiang Rogers Facility:[facility] Start: 12-31-2023 End: 12-31-2023 Office outpatient visit 25 minutes Gab Culver APRN.CNP Work Phone: [facility] Comment on above: Sinobronchitis (Prim jagjit Dx) Start: 11-13-2023 ambulatory Xiang Rogers Facilit y:[facility] Start: 11-13-2023 End: 11-13-2023 ambulatory Xiang Rogers Facility:[facility] Start: 10-28-2023 End: 10-28-2023 ambulatory Xiang Rogers Facility:[facility] Start: 09-21-2023 End: 09-21-2023 ambulatory Xiang Rogers Facility:[facility] Start: 06-02-2023 End: 06-02-[address] Xiang Rogers Work Phone: [facility] Work Phone: Start: 06-02-2023 End: 06-02-[address] Xiang Rogers Work Phone: [facility] Work Phone: Start: 05-24-2023 End: 05-24-2023 Emergency department patient visit Dr. Xiang Rogers Work Phone: [facility]-Emergency Department Work Phone: Start: 04-25-2023 End: 04-25-2023 Emergency department patient visit Dr. Xiang Rogers Work Phone: [facility]-Emergency Department Work Phone: Start: 04-15-2023 End: 04-15-[address] Xiang Rogers Work Phone: [facility] Work Phone: Start: 04-15-2023 End: 04-15-[address] Xiang Rogers Work Phone: [facility] Work Phone: Start: 01-26-2023 End: 01-26-[address] Xiang Rogers Work Phone: [facility] Work Phone: Start: 01-13-2023 End: 01-13-[address] Xiang Rogers Work Phone: [facility] Work Phone: Start: 06-02-2022 End: 06-02-[address] Xiang Rogers Work Phone: [facility] Work Phone: Start: 06-02-2022 End: 06-02-[address] Xiang Rogers Work Phone: [facility]-Laboratory Start: 05-23-2022 Non-patient / Non-visit Dr. Velazquez Work Phone: [facility] Start: 05-21-2022 End: 05-21-2022 Emergency department patient visit Dr. Xiang Rogers Work Phone: [facility]-Emergency Department Start: 05-19-2022 End: 05-19-[address] Xiang Rogers Work Phone: [facility] Start: 04-24-2022 End: 04-24-[address] Xiang Rogers Work Phone: [facility] Internal Medicine Start: 04-21-2022 Non-patient / Non-visit Dr. Velazquez Work Phone: [facility] Start: 04-19-2022 Non-patient / Non-visit Dr. Velazquez Work Phone: [facility] Start: 04-19-2022 Non-patient / Non-visit Dr. Velazquez Work Phone: [facility] Inpatient Physicians Start: 04-18-2022 Non-patient / Non-visit Dr. Velazquez Work Phone: [facility] Start: 04-18-2022 End: 04-19-2022 Evaluation and management of inpatient Dr. Xiang Rogers Work Phone: [facility]-Intensive Care Unit Start: 04-09-2022 End: 04-09-[address] Xiang Rogers Work Phone: [facility] Internal Medicine Start: 03-11-2022 End: 03-11-[address] Xiang Rogers Work Phone: [facility] Work Phone: Start: 03-11-2022 End: 03-11-[address] Xiang Rogers Work Phone: [facility] Start: 03-01-2022 End: 03-01-2022 Emergency department patient visit Dr. Xiang Rogers Work Phone: [facility]-Emergency Department Start: 02-04-2022 End: 02-04-2022 ambulatory YAMILKA PAREKH Facility:[facility] Start: 02-04-2022 End: 02-04-2022 Patient encounter procedure Yamilka Parekh MD Work Phone: General Surgery Comment on above: Recurrent left ingui nal hernia (Primary Dx) Start: 01-28-2022 End: 01-28-2022 ambulatory YAMILKA PAREKH Facility:[facility] Start: 01-28-2022 End: 01-28-2022 Patient encounter procedure Yamilka Parekh MD Work Phone: General Surgery Comment on above: Left groin pain (Ruchi frantz Dx) Start: 01-28-2022 End: 01-28-2022 Subsequent hospital visit by physician Clotilde [facility] (I-Stat) Work Phone: Cat Scan Comment on above: Left groin pain [R10 .32] Start: 01-08-2022 Non-patient / Non-visit Dr. Velazquez Work Phone: [facility] Internal Medicine Start: 01-06-2022 End: 01-06-2022 ambulatory YAMILKA PAREKH Facility:[facility] Start: 01-06-2022 End: 01-06-2022 Patient encounter procedure Yamilka Parekh MD Work Phone: General Surgery Comment on above: Left groin pain (Ruchi frantz Dx) Start: 01-01-2022 End: 01-01-[address] Xiang Rogers Work Phone: [facility] Work Phone: Start: 01-01-2022 End: 01-01-[address] Xiang Rogers Work Phone: [facility] Internal Medicine Start: 12-08-2021 End: 12-09-2021 Emergency department [facility] Start: 09-18-2021 End: 09-18-[address] Xiang Rogers Work Phone: [facility] Internal Medicine Start: 07-18-2021 End: 07-19-2021 Emergency department patient visit Dr. Xiang Rogers Work Phone: [facility]-Emergency Department Start: 07-18-2021 End: 07-18-2021 ambulatory YAMILKA PAREKH Facility:[facility] Start: 07-18-2021 End: 07-18-2021 Patient encounter procedure Gab Culver APRN.CNP Work Phone: [facility] Comment on above: URI with cough and c ongestion (Primary Dx) Start: 06-13-2021 End: 06-13-[address] Xiang Rogers Work Phone: [facility]-Laboratory, [facility] Start: 04-01-2021 End: 04-01-2021 ambulatory YAMILKA PAREKH [facility] Procedures Date Procedure Procedure [...] Adult depression scr eening assessment Gab Culver [employer] Work Phone: Start: 04-06-2006 History of coronary artery bypass grafting H/O coronary artery bypass surgery Magaly DEVINE Comment on above: CABG x 4 ALMANZAR-LAD, R ESTRELLITA-RPDA, SVG-D1, RA-OM1; History of coronary artery bypass grafting Dr. Xiang Rogers DO Work Phone: History of coronary artery bypass grafting Dr. Seth Carrington DO SARS-CoV-2 & FLU Ant igen (Rapid) Dr. Xiang Rogers Work Phone: Plan of Treatment Date Care Activity Detail Author Start: 04-25-2033 Urine microalbumin profile DTaP,Tdap,Td Vaccine (3 - Td or Tdap) [facility] Start: 07-29-2024 [facility] Start: 07-29-2024 End: 07-29-2024 [facility] Start: 06-20-2024 Patient discharge [facility] Start: 06-19-2024 [facility] Start: 06-19-2024 [facility] Start: 06-18-2024 Assessment of risk o f venous thromboembolism [facility] Start: 06-18-2024 Care regimes management [facility] Start: 06-18-2024 Catheterization of vein [facility] Start: 06-18-2024 Continuous pulse oximetry [facility] Start: 06-18-2024 Elevation of head of bed [facility] Start: 06-18-2024 Insertion of cathete r into peripheral vein [facility] Start: 06-18-2024 Measuring intake and output [facility] Start: 06-18-2024 Notification of physician [facility] Start: 06-18-2024 Oxygen therapy [facility] Start: 06-18-2024 Providing care accor ding to standard [facility] Start: 06-18-2024 Referral to sole leveling machine operator [facility] Start: 06-18-2024 Referral to service [facility] Start: 06-18-2024 Tobacco use cessatio n education [facility] Start: 06-18-2024 Vital signs measurements [facility] Start: 06-18-2024 End: 06-18-2024 [facility] Start: 06-18-2024 Following clinical pathway protocol [facility] Start: 06-18-2024 End: 06-18-2024 Admission procedure [facility] Start: 06-18-2024 Dual pressure sponta neous ventilation support [facility] Start: 06-18-2024 Consultation [facility] Start: 06-18-2024 Inhalation therapy procedure [facility] Start: 06-17-2024 End: 06-18-2024 [facility] Start: 06-11-2024 Urine microalbumin profile DTaP,Tdap,Td Vaccine (2 - Td or Tdap) [facility] Start: 05-21-2024 [facility] Start: 05-21-2024 Airborne precautions [facility] Start: 05-09-2024 Echo tthrc r-t 2d w/wom-mode compl spec&colr d TTE W/DOPPLER COMPLETE [facility] Start: 04-20-2024 Patient discharge [facility] Start: 12-06-2023 Covid-19 Vaccine ( season) Covid-19 Vaccine ( season) [facility] Start: 12-06-2023 Influenza vaccination Influenza Vacc ine (#1) [facility] Start: 05-24-2023 Incision & drainage abscess simple/single I&D ABSCESS SIMPLE/SINGLE [facility] Start: 05-24-2023 [facility] Start: 04-25-2023 [facility] Start: 12-05-2022 Influenza vaccination Influenza Vacc ine (#1) [facility] Start: 05-23-2022 Patient referral [facility] Work Phone: Start: 04-21-2022 Patient referral [facility] Work Phone: Start: 04-19-2022 Patient discharge [facility] Start: 04-18-2022 Patient discharge [facility] Start: 04-18-2022 End: 04-18-2022 Provision of activity privileges [facility] Start: 04-18-2022 Scheduling [facility] Start: 04-18-2022 Vascular disease ris k assessment [facility] Start: 04-18-2022 End: 04-18-2022 Notification of physician [facility] Start: 04-18-2022 Patient education [facility] Start: 04-18-2022 Pulse taking [facility] Start: 04-18-2022 End: 04-18-2022 Taking patient vital signs [facility] Start: 04-18-2022 Wound care [facility] Start: 04-18-2022 End: 04-18-2022 [facility] Start: 04-18-2022 Catheterization of vein [facility] Start: 04-18-2022 Medication not administered [facility] Start: 04-18-2022 Notification of physician [facility] Start: 04-18-2022 [facility] Start: 04-18-2022 Following clinical pathway protocol [facility] Start: 04-18-2022 Assessment of risk o f venous thromboembolism [facility] Start: 04-18-2022 Care regimes management [facility] Start: 04-18-2022 Inhalation therapy procedure [facility] Start: 04-18-2022 Insertion of cathete r into peripheral vein [facility] Start: 04-18-2022 Measuring intake and output [facility] Start: 04-18-2022 Oxygen therapy [facility] Start: 04-18-2022 Providing care accor ding to standard [facility] Start: 04-18-2022 Provision of activit y privileges [facility] Start: 04-18-2022 Referral to sole leveling machine operator [facility] Start: 04-18-2022 Referral to occupati onal therapist [facility] Start: 04-18-2022 Referral to service [facility] Start: 04-18-2022 Tobacco use cessatio n education [facility] Start: 04-18-2022 [facility] Start: 04-18-2022 Verification routine [facility] Work Phone: Start: 04-18-2022 Admission procedure [facility] Start: 04-18-2022 [facility] Work Phone: Start: 04-06-2022 [facility] Start: 12-05-2021 Influenza vaccination [facility] Start: 04-06-2021 DEPRESSION ASSESSMENT DEPRESSION ASS ESSMENT [facility] Start: 06-06-2020 PROSTATE CANCER SCRE ENING DISCUSSION PROSTATE CANCER SCREENING DISCUSSION [facility] Start: 06-06-2020 Prostate specific an tigen measurement Prostate Cancer Screening Discussion [facility] Start: 2020 Hepatitis B Vaccine (1 of 3 - Risk 3-dose series) Hepatitis B Vaccine (1 of 3 - Risk 3-dose series) [facility] Start: 2020 RSV Vaccine (1 - 1-d ose 60+ series) RSV Vaccine (1 - 1-dose 60+ series) [facility] Start: 2020 RSV Vaccine (1 - Ris k 60-74 years 1-dose series) RSV Vaccine (1 - Risk 60-74 years 1-dose series) [facility] Start: 06-18-2019 ANNUAL PCP TEAM SHOE REPAIR SUPERVISOR MIAN DISEASE VISIT ANNUAL PCP TEAM CHRONIC DISEASE VISIT [facility] Start: 12-23-2017 Adult depression screening assessment DEPRESSION SCREENING [facility] Start: 01-13-2017 3 comp foot exam completed DIABETIC FOOT EXAM [facility] Start: 01-13-2017 Diabetic foot examination Diabetic F oot Exam [facility] Start: 01-13-2017 Hepatitis B surface antibody level LDL CHOLESTEROL [facility] Start: 10-08-2016 PNEUMOCOCCAL (2 - PCV) PNEUMOCOCCAL (2 - PCV) [facility] Start: 10-08-2016 Pneumococcal vaccination [facility] Start: 04-15-2016 Hemoglobin A1c measurement HbA1C [facility] Start: 04-15-2016 Hemoglobin A1c/Hemoglobin.total in Blood HBA1C [facility] Start: 01-22-2015 Influenza vaccination LUNG CANCER [facility] Start: 01-22-2010 Influenza vaccination LUNG CANCER [facility] Start: 01-22-2010 Screening for malign ant neoplasm of lung Lung Cancer Screening [facility] Start: 01-22-2010 SHINGRIX VACCINE (1 of 2) NOVA GRIX VACCINE (1 of 2) [facility] Start: 01-22-2005 COLOGUARD (FIT-DNA) COLOGUARD (FIT-D NA) [facility] Start: 01-22-2005 Colonoscopy COLONOSCOPY [facility] Start: 01-22-2005 COLORECTAL CANCER SCREENING COLORECTAL CANCER SCREENING [facility] Start: 01-22-[address] COLONOGRAPHY [facility] Start: 01-22-2005 FECAL OCCULT BLOOD FECAL OCCULT BLOO D [facility] Start: 01-22-2005 Screening for malign ant neoplasm of colon [facility] Start: 01-22-2005 SIGMOIDOSCOPY SIGMOIDOSCOPY [facility] Start: 01-22-1979 Urine microalbumin profile DTAP,TDAP,TD (1 - Tdap) [facility] Start: 01-22-1978 ANNUAL PCP TEAM SHOE REPAIR SUPERVISOR MIAN DISEASE VISIT ANNUAL PCP TEAM CHRONIC DISEASE VISIT [facility] Start: 01-22-1978 Anxiety Screening Anxiety Screening [facility] Start: 01-22-1978 Depression Screening Depression Scre ening [facility] Start: 01-22-1978 HIV SCREENING HIV SCREENING [facility] Start: 01-22-1978 HIV screening HIV Screening [facility] Start: 01-22-1970 Glaucoma screening Dilated Retinal E xam [facility] Start: 01-22-1970 Hepatitis B screening URINE ALBUMIN:CREATININE RATIO [facility] Start: 01-22-1970 Hepatitis C antibody , confirmatory test DILATED RETINAL EXAM [facility] Start: 01-22-1965 COVID-19 VACCINE (1) COVID-19 VACCIN E (1) [facility] Start: 1960 COVID-19 VACCINE (#1) COVID-19 VACCI NE (#1) [facility] End: 02-05-2023 Ct pelvis w/o contrast material CT PELVIS WO IVCON Radiology Routine Left groin pain 1 Occurrences starting 01/06/2022 until 02/05/2023 [facility] Work Phone: Comment on above: 1 Occurrences starti ng 01/06/2022 until 02/05/2023 Hemoglobin A1c/Hemoglobin.total in Blood [facility] Work Phone: Hemoglobin A1c/Hemoglobin.total in Blood [facility] Lipid 1996 panel - S belinda or Plasma [facility] Patient Education [facility] Work Phone: Patient referral [facility] Work Phone: US Carotid arteries [facility] US Heart limited [facility] Immunizations Immunization Date Immunization Notes Care Provider Karla garcia 04-25-2023 tetanus toxoid, redu jesse diphtheria toxoid, and acellular pertussis vaccine, adsorbed Dr. Xiang Rogers Work Phone: [facility] 12-23-2016 influenza, injectabl e, quadrivalent, contains preservative Gab Culver [employer] Work Phone: [facility] 12-23-2016 influenza virus vacc ine, unspecified formulation Ct (I-Stat) Work Phone: [facility] 10-09-2015 pneumococcal polysaccharide vaccine, 23 valent Gab Culver [employer] Work Phone: [facility] Work Phone: 06-11-2014 tetanus toxoid, redu jesse diphtheria toxoid, and acellular pertussis vaccine, adsorbed Dr. Xiang Rogers Work Phone: [facility] Payers Date Payer Category Payer Self-pay [id number] 2023 Unknown [id number] 2023 Unknown NEVILLE LOZADA HI X [id number] 2023-Present [phone] [address] [address] [place] [address] [facility] [id number] 2023 Unknown [id number] 2020 Medicaid [employer] [facility] [id number] 2020-Present [phone] [address] [place] [address] Medicaid [id number] 2020 Medicaid [id number] 2020 Unknown [id number] 2014 Unknown R TEGAN [id number] Unknown [id number] Unknown [id number] 2.16.840.1.329765.3.579.2.462 Unknown [id number] 2.16.840.1.296975.3.579.2.462 Unknown [id number] 2.16.840.1.274415.3.579.2.462 Unknown [id number] 2.16.840.1.459370.3.579.2.462 Unknown [id number] 2.16.840.1.749299.3.579.2.462 Unknown [id number] 2.16.840.1.038072.3.579.2.462 Unknown [id number] 2.16.840.1.621519.3.579.2.462 Unknown [id number] 2.16.840.1.192322.3.579.2.462 Unknown [id number] 2.16.840.1.112634.3.579.2.462 Unknown [id number] 2.16.840.1.359305.3.579.2.462 Unknown [id number] 2.16.840.1.797130.3.579.2.462 Unknown [id number] 2.16.840.1.246874.3.579.2.462 Unknown [id number] 2.16.840.1.338730.3.579.2.462 Unknown [id number] 2.16.840.1.180032.3.579.2.462 Unknown [id number] 2.16.840.1.626841.3.579.2.462 Unknown [id number] 2.16.840.1.702425.3.579.2.462 Unknown [id number] 2.16.840.1.821294.3.579.2.462 Unknown [id number] 2.16.840.1.759568.3.579.2.462 Unknown [id number] 2.16.840.1.021387.3.579.2.462 Unknown [id number] 2.16.840.1.343631.3.579.2.462 Unknown [id number] 2.16.840.1.661268.3.579.2.462 Unknown [id number] 2.16.840.1.718031.3.579.2.462 Unknown [id number] 2.16.840.1.766228.3.579.2.462 Unknown [id number] 2.16.840.1.316703.3.579.2.462 Unknown [id number] 2.16.840.1.587514.3.579.2.462 Unknown [id number] 2.16.840.1.447332.3.579.2.462 Unknown [id number] 2.16.840.1.490461.3.579.2.462 Unknown [id number] 2.16.840.1.174963.3.579.2.462 Unknown [id number] 2.16.840.1.970711.3.579.2.462 Unknown [id number] 2.16.840.1.569849.3.579.2.462 Unknown [id number] 2.16.840.1.006329.3.579.2.462 Unknown [id number] 2.16840.1.375603.3.579.2.462 Unknown [id number] 2.16.840.1.907292.3.579.2.462 Unknown [id number] 2.16.840.1.726171.3.579.2.462 Unknown [id number] 2.16.840.1.884742.3.579.2.462 Unknown [id number] 2.16.840.1.318886.3.579.2.462 Unknown [id number] 2.16.840.1.473889.3.579.2.462 Unknown [id number] 2.16.840.1.344684.3.579.2.462 Unknown [id number] 2.16.840.1.359016.3.579.2.462 Unknown [id number] 2.16.840.1.530776.3.579.2.462 Unknown [id number] 2.16.840.1.676024.3.579.2.462 Unknown [id number] 2.16.840.1.294949.3.579.2.462 Social History Date Type Detail Facility Start: 01-06-2022 End: 12-31-2023 Tobacco smoking status NHIS Smokes tobacco daily [facility] Work Phone: History of tobacco use Cigarette Smoker [facility] Start: 07-18-2021 End: 12-31-2023 Alcohol intake Current non-drinker of alcohol (finding) [facility] Start: 1960 Sex Assigned At Not on file [facility] Start: 07-08-2021 End: 02-04-2022 Exposure to SARS-CoV-2 (event) Not sure [facility] Start: 07-18-2021 End: 06-02-2023 Tobacco smoking status NHIS Unknown if ever smoked [facility] Start: 04-12-2019 None [facility] Start: 04-12-2019 Spouse/ Signif icant Other [facility] Start: 08-11-2020 Cigarettes [facility] Start: 1960 Sex Assigned At Male [facility] Start: 01-06-2022 End: 05-02-2022 Cigarettes smoked current (pack per day) - Reported 2 [facility] Start: 01-06-2022 End: 12-31-2023 Tobacco use and exposure Smokeless tobacco non-user [facility] Start: 01-06-2022 Tobacco Comment started at age 14 [facility] Start: 01-28-2022 End: 05-02-2022 Tobacco use panel [facility] National Score (1-10 0), lower number is lower risk Not on file [facility] Start: 06-17-2024 End: 07-29-2024 Tobacco smoking status NHIS Current Heavy tobacco smoker [facility] Start: 06-23-2024 Sex Male (finding) [facility] Medical Equipment Procedure Code Equipment Code Equipment Origin al Text Equipment Identifier Dates [id number], [id number], [id number] Start: 01-21-2016 Comment on above: Test blood [...] 04-02-2021 Lancets (Freesty le Lancets) 28 gauge [facility] Start: 04-02-2021 Pen Needle, Diabetic (1st Tier Unifine Pentips Plus) 31 gauge x 3/16" needle Start: 04-02-2021 Blood Sugar Diagnostic (Freestyle Test) strip Start: 06-10-2019 End: 04-02-2021 Lancets (Freesty le Lancets) 28 gauge [facility] Start: 06-10-2019 End: 04-02-2021 Pen Needle, Diabetic (1st Tier Unifine Pentips Plus) 31 gauge x 3/16" needle Start: 06-01-2019 End: 08-06-2020 Pen Needle, Diabetic (1st Tier Unifine Pentips Plus) 31 gauge x 3/16" needle Start: 08-06-2020 End: 04-02-2021 Blood Sugar Diagnostic (Freestyle Test) strip Start: 04-02-2021 Lancets (Freesty le Lancets) 28 gauge [facility] Start: 04-02-2021 Pen Needle, Diabetic (1st Tier Unifine Pentips Plus) 31 gauge x 3/16" needle Start: 04-02-2021 Blood Sugar Diagnostic (Freestyle Test) strip Start: 06-10-2019 End: 04-02-2021 Lancets (Freesty le Lancets) 28 gauge [facility] Start: 06-10-2019 End: 04-02-2021 Pen Needle, Diabetic [...] 04-02-2021 Lancets (Freesty le Lancets) 28 gauge [facility] Start: 04-02-2021 Pen Needle, Diabetic (1st Tier Unifine Pentips Plus) 31 gauge x 3/16" needle Start: 04-02-2021 Blood Sugar Diagnostic (Freestyle Test) strip Start: 06-10-2019 End: 04-02-2021 Lancets (Freesty le Lancets) [facility] Start: 06-10-2019 End: 04-02-2021 Pen Needle, Diabetic [...] 04-02-2021 Pen Needle, Diabetic (Comfort Ez Pen [place]) 31 gauge x 5/16" needle Start: 10-28-2023 [...] Assessment Result Facility 06-20-2024 Functional status Chair [facility] Work Phone: 04-19-2022 Functional status Ambulates;Up ad andree [facility] Work Phone: Mental Status Date Assessment Result Facility 07-29-2024 Cognitive function Voice/Name [facility] Work Phone: 06-20-2024 Cognitive function Voice/Name [facility] Work Phone: 04-19-2022 Cognitive function Voice/Name [facility] Work Phone: 04-18-2022 Cognitive function Voice/Name [facility] Work Phone: 07-18-2021 Cognitive function Level Of Cons ciousness Awake;Alert;Appropriate [facility] Work Phone: Clinical Notes 06-11-2018 to 06-20-2024 Note Date & Type Note Facility 06-20-2024 Note [facility] 06-15-2024 Note [facility] 05-17-2024 Evaluation note Diagnosis Onset Date Resolution [...] Nicotine dependence chronic August 02, 2024 11:21am [facility] Work Phone: 1(597) 756-501811-20-2024 Evaluation note* Diagnosis Onset Date Resolution Status [...] with ulceration acute ua ry 2024 12:40pm [facility] Work Phone: 1(318) 919-265509-26-2024 History of Present illness Narrative* Gab Culver, BROOKE[employer] - 12/31/2023 9:33 AM EDT Subjective HPI [...] non-ST elevation myocardial infarction (NSTEMI) 06/11/[address] Herrera Espinosa Hypertension Other emphysema (HCC) [...] of care. This note was generated using Nano Terra software. It may contain errors in wording, punctuation, or spelling. Gab Culver APRN.TURNER documented in this encounterUniversity [facility] Hospital Discharge instructions Additional Instructions [...] please return [facility] the ER [facility] Work Phone: 1(236) 534-316211-01-2022 NoteHNO ID: [id number] Author: Yamilka Parekh MD Service: ? Author [...] non-ST elevation myocardial infarction (NSTEMI) 06/11/[address] Herrera Espinosa Hypertension Other emphysema (HCC) [...] any blood vessels/nerv (more content not included)... [facility]11-01-2022 History of Present illness Narrative* Yamilka Parekh [...] non-ST elevation myocardial infarction (NSTEMI) 06/11/[address] Herrera Espinosa Hypertension Other emphysema (HCC) [...] Straightforward Yamilka Parekh MD documented in this encounterUniversity [facility]als [facility]10-25-2022 NoteHNO ID: [id number] Author: Yamilka Parekh MD Service: ? Author [...] non-ST elevation myocardial infarction (NSTEMI) 06/11/[address] Herrera Espinosa Hypertension Other emphysema (HCC) [...] and completing appropriate m (more content not included)...[facility]10-25-2022 History of Present illness Narrative* Yamilka Parekh [...] non-ST elevation myocardial infarction (NSTEMI) 06/11/[address] Herrera Espinosa Hypertension Other emphysema (HCC) [...] documentation. Yamilka Parekh MD documented in this encounterUniversity Hospitals [facility]10-25-2022 NoteHNO ID: [id number] Author: RT Benji(Suman) Service: ? Author Type: Technical Trainer Type: Progress Notes Filed: 01/28/2022 3:01 PM [...] BY: RT Betsy(Suman) January 28, 2022 3:01 [facility]10-25-2022 History of Present illness Narrative* Hazel [...] 28, 2022 3:01 PM documented in this encounterUniversity [facility]als [facility]10-03-2022 NoteHNO ID: [id number] Author: Yamilka Parekh MD Service: ? Author [...] non-ST elevation myocardial infarction (NSTEMI) 06/11/[address] Herrera Espinosa Hypertension Other emphysema (HCC) [...] REVIEW OF SYSTEMS: General: (more content not included)...[facility]10-03-2022 History of Present illness Narrative* Yamilka Parekh [...] non-ST elevation myocardial infarction (NSTEMI) 06/11/[address] Herrera Espinosa Hypertension Other emphysema (HCC) [...] entered by the nurse and reviewed by nd Nursing Notes: Allison Haines RN 01/06/2022 9:32 [...] of any pertinent laboratory studies/radiological imaging/medical records, [id number] care, obtaining oral medical history from the patient in this encounter, performing a medically appropriate examination, counseling and educating the patient/family/caregiver, and ordering and/or scheduling of medications/tests/procedures, and completing appropriate medical documentation. Yamilka Parekh MD documented in this encounterUniversity Hospitals [facility]10-03-2022 Nurse Note* Allison Haines RN [...] Unknown Allison Haines RN documented in this encounterUniversity Hospitals [facility]04-14-2022 NoteHNO ID: [id number] Author: Gab Culver APRN.[employer] Service: ? Author Type: Nurse Practitioner Type: [...] type 2 in obese (HCC) - Hyperlipidemia Divemaster Dr. Herrera Espinosa - Hypertension - Pancreatitis [...] He is not diaphoretic (more content not included)...[facility]04-14-2022 Instructions* Patient Instructions* Gab Culver APRN.[employer] - 07/18/2021 1:15 PM EDT RESPIRATORY INFECTION [...] spread by coughs, sneezes, anddirect contact, especially [id number]. A respiratory tract infection usually clears up [...] 102 F (39 C). documented in this encounterUniversity Hospitals [facility] Center04-14-2022 History of Present illness Narrative* [...] mellitus type 2 in obese (HCC) Hyperlipidemia Divemaster Dr. Herrera Espinosa Hypertension Pancreatitis Tobacco use [...] of care. This note was generated using Nano Terra software. It may contain errors in wording,punctuation, or spelling. Gab Culver APRN.TURNER documented in this encounterUniversity Hospitals [facility] Center12-27-2021 NoteHNO ID: [id number] Author: Maxx Owen APRN.TURNER Service: ? Author [...] type 2 in obese (HCC) - Hyperlipidemia Divemaster Dr. Herrera Espinosa - Hypertension - Pancreatitis [...] see if it reli (more content not included)...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 Hyperlipidemia chronic Insulin dependent diabetes mellitus chronic H/O coronary artery bypass surgery 2006 resolved [facility] Work Phone: Evaluation note* Diagnosis Onset Date Resolution Status Essential (primary) hypertension chronic Insulin dependent diabetes mellitus chronic Stenosis of right carotid artery chronic H/O coronary artery bypass surgery 2007 resolved [facility] Work Phone: Evaluation note* Diagnosis Onset Date Resolution Status Essential (primary) hypertension chronic Insulin dependent diabetes mellitus chronic Stenosis of right carotid artery chronic H/O coronary artery bypass surgery 2006 resolved Essential (primary) hypertension chronic Insulin dependent diabetes mellitus chronic Stenosis of right carotid artery chronic [facility] Work Phone: Evaluation note* Diagnosis Left groin pain- Primary Abdominal pain, left lower quadrant [facility] Diagnosis Left groin pain- Primary Abdominal pain, left lower quadrant documented [facility]* Diagnosis Recurrent left inguinal hernia- Primary Inguinal hernia without mention of obstruction or gangrene, recurrent unilateral or unspecified documented in this encounter [facility]* Diagnosis Onset Date Resolution Status Essential (primary) hypertension chronic Insulin dependent diabetes mellitus chronic Stenosis of right carotid artery chronic [facility] Work Phone: Evaluation note* Diagnosis Onset Date Resolution Status Essential (primary) hypertension chronic Insulin dependent diabetes mellitus chronic Stenosis of right carotid artery chronic [id number] acute Nicotine dependence [facility] Work Phone: Evaluation note* Diagnosis Onset Date Resolution Status Essential (primary) hypertension chronic Insulin dependent diabetes mellitus chronic Stenosis of right carotid artery chronic [id number] acute Nicotine dependence chronic Essential (primary) hypertension chronic Hyperlipidemia chronic Insulin dependent diabetes mellitus chronic H/O coronary artery bypass surgery 2007 resolved NSTEMI, initial episode of care acute Insulin dependent diabetes mellitus chronic Nicotine dependence chronic [facility] Work Phone: Evaluation note* Diagnosis Onset Date Resolution Status [id number] acute Nicotine dependence chronic Essential (primary) hypertension [...] H/O coronary artery bypass surgery 2006 resolved [facility] Work Phone: Evaluation note* Diagnosis Left groin pain Abdominal pain, left lower quadrant documented in this encounter [facility] note* Diagnosis Onset Date Resolution Status Essential (primary) hypertension chronic Hyperlipidemia chronic Nicotine dependence chronic Stenosis of right carotid artery chronic H/O coronary artery bypass surgery 2006 resolved Non-STEMI (non-ST elevated myocardial infarction) acute 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 Essential (primary) hypertension chronic Insulin dependent diabetes mellitus chronic Nicotine dependence chronic [facility] Work Phone: Evaluation note* Diagnosis Onset Date Resolution Status Non-STEMI (non-ST elevated myocardial infarction) acute 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 Essential (primary) hypertension chronic Insulin dependent diabetes mellitus chronic Nicotine dependence chronic [id number] acute Nicotine dependence [facility] Work Phone: Evaluation note* Diagnosis Sinobronchitis- Primary Unspecified sinusitis (chronic) documented in this encounter [facility] for referral (narrative)No reason for referral information availableWTriHealth Work Phone: Advance Directives No Advanced Directives Records FoundDocuments on File Type Date Recorded Patient End Trimmer Expl anation Advance Directive(s) 01/20/2017 7:47 AM Advance Directive(s) 09/05/2015 4:07 PM Advance Directive Response Recorded Date/ Time Advance Directives No January 13, 2020 3:59pm Living Will No July 18, 2021 9:19pm Power of Electric Motor Repairing Supervisor No July 18 9:19pm Advance Directive Response Recorded Date/ Time Advance Directives No January 13, 2020 3:59pm Living Will No December 08 11:25pm Power of Electric Motor Repairing Supervisor No December 08, 2021 11:25pm Advance Directive Response Recorded Date/ Time Advance Directives No January 13, 2020 2:59pm Living Will No March 01 9:51pm Power of Electric Motor Repairing Supervisor No March 01, 2022 9:51pm Advance Directive Response Recorded Date/ Time Advance Directives No January 13, 2020 2:59pm Living Will No April 18 1:40am Power of Electric Motor Repairing Supervisor No April 18, 2022 1:40am Advance Directive Response Recorded Date/ Time Advance Directives No January 13, 2020 2:59pm Living Will No May 21, 023 1:36am Power of Electric Motor Repairing Supervisor No May 21, 2022 1:36am Advance Directive Response Recorded Date/ Time Advance Directives No January 13, 2020 2:59pm Living Will No April 25 3:42pm Power of Electric Motor Repairing Supervisor No April 25, 2023 3:42pm Advance Directive Response Recorded Date/ Time Advance Directives No January 13, 2020 2:59pm Living Will No May 24 024 12:27am Power of Electric Motor Repairing Supervisor No May 24, 2023 12:27am Advance Directive Response Recorded Date/ Time Living Will No August 23, 2023 6 :30pm Do you have a Healthcare Power of Electric Motor Repairing Supervisor? No August 23, 2023 6:30pm Advance Directives on File No William 2024 8:15am Living Will No April 20 8:15am Do you have a Healthcare Power of Electric Motor Repairing Supervisor? No April 20, 2024 8:15am Advance Directives No April 20, 2024 8:15am Living Will No May 21 025 8:31pm Do you have a Healthcare Power of Electric Motor Repairing Supervisor? No May 21, 2024 8:31pm Advance Directive Response Recorded Date/ Time Living Will No August 23, 2023 6 :30pm Do you have a Healthcare Power of Electric Motor Repairing Supervisor? No August 23, 2023 6:30pm Living Will No May 21 2 025 8:31pm Do you have a Healthcare Power of Electric Motor Repairing Supervisor? No May 21, 2024 8:31pm Living Will No June 18, 2024 6:24am Do you have a Healthcare Power of Electric Motor Repairing Supervisor? No June 18, 2024 6:24am Do you have a Healthcare Power of Electric Motor Repairing Supervisor? No July 29, 2024 8:08pm Advance Directives [...] diabetes mellitus Stenosis of right carotid artery [id number] Nicotine dependence Chief Complaint 3 M FU Amb Documentation LOWER lung cancer screening SCREENING 3 M FU NSTEMI Reason for Visit Essential (primary) hypertension Insulin dependent diabetes mellitus Stenosis of right carotid artery [id number] Nicotine dependence Essential (primary) hypertension Hyperlipidemia Insulin dependent diabetes mellitus H/O coronary artery bypass surgery NSTEMI, initial episode of care Insulin dependent diabetes mellitus Nicotine dependence Chief Complaint LOWER lung cancer screening SCREENING 3 M FU NSTEMI NSTEMI NSTEMI NSTEMI [facility] FU- HEART ATTACK s/p [facility] ED NSTEMI 1-14 lower extrem Reason for Visit [id number] Nicotine dependence Essential (primary) hypertension Hyperlipidemia Insulin [...] 3 M FU NSTEMI NSTEMI NSTEMI NSTEMI [facility] FU- HEART ATTACK s/p [facility] ED NSTEMI 1-14 lower extrem EORDER Reason for Visit [id number] Nicotine dependence Essential (primary) hypertension Hyperlipidemia Insulin [...] hypertension Insulin dependent diabetes mellitus Nicotine dependence [id number] Nicotine dependence Chief Complaint Admit Date 3-4 M FU February 24, 2024 11:07am 3 M FU February 24, 2024 12:58pm PVD, OPEN WOUND March 09, 2024 9 :11am 4-5 WK FU March 22, 2024 10:47am Peripheral vascular disease, unspecified March 29, 2024 1:23pm 6 M FU April 01, 2024 9:49am Discuss CTA results April 08, 2024 12 :56pm Atherosclerosis of [place] arteries of ri ght leg wi April 20, 2024 6:47am Atherosclerosis of [place] arteries of ri ght leg wi April [...] February 24, 2024 11:07am Essential (primary) hypertension [facility] r 2023 12:58pm Insulin dependent diabetes mellitus [facility] 2023 12:58pm Nicotine dependence February 24, 2024 12:58pm Fissure in skin of left foot February 232023 12:58pm Fissure in skin of right foot March 062023 10:47am PAD (peripheral artery disease) March 22, 2024 10:47am Cardiac murmur April 01, 2024 9:49am Essential (primary) hypertension [facility] r 2023 9:49am Hyperlipidemia April 01, 2024 9:49am Nicotine dependence April 01, 2024 9:49am Stenosis of right carotid artery [facility] r 2023 9:49am H/O coronary artery bypass [...] 17, 2024 12:40pm Acute hypoxemic respiratory failure [facility] 2024 4:45am Acute respiratory distress June 18, [...] MATERIAL Yamilka Parekh MD [address] [place] [address] [address] Imaging Referral ID Status Reason Start Date Expiration Date Visits Requested Visits Authorized [id number] Additional Clinical Info Needed Auto-Generat ed Referral 01/06/2022 02/05/2023 1 1 Specialty Diagnoses / Procedures Referred By David rausch Referred To Contact CT IMAGING Diagnoses Left groin pain Procedures CT PELVIS WO IVCON CT PELVIS W/O CONTRAST MATERIAL Yamilka Parekh MD [address] [place] [address] Ct Imaging [facility] Referral ID Status Reason Start Date Expiration Date V isits Requested Visits Authorized [id number] Closed Auto-Generate d Referral 01/06/2022 03/16/2022 2 2 Summary Purpose Additional Source Comments Source Comments (unrecognize d section and content) In the event this informatio n is protected by the Federal Confidentiality of Alcohol and Drug Abuse Patient Records regulations: The Federal rules restrict any use of the information to criminally investigate or prosecute any alcohol or drug abuse patient.[facility] Center[facility] the event this information is protected by the Federal Confidentiality of Alcohol and Drug Abuse Patient Records regulations: The Federal rules restrict any use of the information to criminally investigate or prosecute any alcohol or drug abuse patient.[facility] CenterIn the event this information is protected by the Federal Confidentiality of Alcohol and Drug Abuse Patient Records regulations: The Federal rules restrict any use of the information to criminally investigate or prosecute any alcohol or drug abuse patient.[facility] CenterIn the event this information is protected by the Federal Confidentiality of Alcohol and Drug Abuse Patient Records regulations: The Federal rules restrict any use of the information to criminally investigate or prosecute any alcohol or drug abuse patient.[facility] CenterIn the event this information is protected by the Federal Confidentiality of Alcohol and Drug Abuse Patient Records regulations: The Federal rules restrict any use of the information to criminally investigate or prosecute any alcohol or drug abuse patient.[facility] CenterIn the event this information is protected by the Federal Confidentiality of Alcohol and Drug Abuse Patient Records regulations: The Federal rules restrict any use of the information to criminally investigate or prosecute any alcohol or drug abuse patient.[facility] CenterIn the event this information is protected by the Federal Confidentiality of Alcohol and Drug Abuse Patient Records regulations: The Federal rules restrict any use of the information to criminally investigate or prosecute any alcohol or drug abuse patient.[facility] Reason for Visit (unrecogniz ed [...] Yamilka Parekh MD [address] [place] [address] [place] [address] Referral ID Status Reason Start Date Expiration Date V isits Requested Visits Authorized [id number] Closed Auto-Generate d Referral 01/06/2022 03/16/2022 2 [...] Care Teams (unrecognized sec tion and content) Crisis Clinician Relationship Specialty Start Date End Date Xaing Rogers DO [address] [place] [address] PCP - General Family Medicine 01/03/22 Crisis Clinician Relationship Specialty Start Date End Date Xiang Rogers DO [address] [place] [address] PCP - General Family Medicine 01/03/22 Crisis Clinician Relationship Specialty Start Date End Date Xiang Rogers DO [address] [place] [address] PCP - General Family Medicine 01/03/22 Team Status: Active Member Role Status Dates Dr. Xiang Rogers DO Family Provider Active Dr. Xiang Rogers , DO Primary Care Provider Active Team Status: Inactive Member Role Status Dates Dr. Xiang Rogers DO Primary Care Pr ovider, Attending Provider, Referring Provider Active Team Status: Inactive Member Role Status Dates Dr. Xiang Rogers DO Primary Care Provider Active Kimberli Mora HOSPICE SUPERINTENDENT, HOSPICE SUPERINTENDENT-C Attending Provider, Referring Provider Active Team Status: [...] Dr. Xiang Rogers , DO Primary Care Provider, Referr ing Provider Active Dean Pena HOSPICE SUPERINTENDENT, HOSPICE SUPERINTENDENT-C Attending Provider Active Team Status: Inactive Member [...] DO Primary Care Provider Active Dean Pena HOSPICE SUPERINTENDENT, HOSPICE SUPERINTENDENT-C Attending Provider, Referring Pro vider Active Crisis Clinician Relationship Specialty Start Date End Date Xiang Rogers DO [address] [place] [address] PCP - General Family Medicine 01/03/22 Crisis Clinician Relationship Specialty Start Date End Date Xiang Rogers DO [address] [place] [address] PCP - General Family Medicine 01/03/22 Team [...] Provider, Referr ing Provider Active Kimberli Mora HOSPICE SUPERINTENDENT, HOSPICE SUPERINTENDENT-C Attending Provider Active Team Status: Inactive Member Role Status Dates Dr. Xiang Rogers DO Primary Care Provider Active Dr. Saúl Aguilar DO Attending Provider, Emergency P rotanishader Active Crisis Clinician Relationship Specialty Start Date End Date Xiang Rogers DO [address] [place] [address] PCP - General Family Medicine 01/03/22 Team [...] End: June 20, 2024 Dean Carson Jean HOSPICE SUPERINTENDENT, HOSPICE SUPERINTENDENT-C Other Provider Active Start : June 18, [...] Active Start: June 19, 2024 Dean Pena HOSPICE SUPERINTENDENT, HOSPICE SUPERINTENDENT-C Other Provider Active Start : June 19, 2024 Magaly Abdi PA, PA Other Provider Active Start: June 19, 2024 NILSON Petersen Other Provider Active Start: June 19, 2024 Dr. Donna Wolff MD Attending Provider Active Start: June 19, 2024 Dr. Donna Wolff MD Other Provider Active Star t: June 19, 2024 Dr. Triston uMro MD Other Provider Active Start: June 19, [...] Active Start: June 19, 2024 Dean Pena HOSPICE SUPERINTENDENT, HOSPICE SUPERINTENDENT-C Other Provider Active Start : June 19, [...] Active Start: June 20, 2024 Dean Pena HOSPICE SUPERINTENDENT, HOSPICE SUPERINTENDENT-C Other Provider Active Start : June 20, [...] Active Start: June 20, 2024 Dean Pena HOSPICE SUPERINTENDENT, HOSPICE SUPERINTENDENT-C Other Provider Active Start : June 20, [...] 2024 End: July 12, 2024 Ronit Galvez HOSPICE SUPERINTENDENT, HOSPICE SUPERINTENDENT-C Attending Provider Active Start: July 12, 2024 [...] section and content) DATE CREATED AUTHOR 02/05/[address] [facility] DATE CREATED AUTHOR 'S ORGANIZ ATION 09/13/2024 [facility] FOR RECORDS PERTAINING TO PATIENTS WHO ARE [...] BE BASED ON THE PRIMARY CLINICAL RECORDS. [employer] provides no warranty or guarantee of the accuracy or completeness of information in this document.
[2024-09-18 14:17] LABS: Hemoglobin A1c 9.9 % (<=5.6)
[2024-09-18 14:45] LABS: Troponin T High Sens 4 HR 64 ng/L (<=22)
[2024-09-18 16:20] LABS: Bedside Glucose 207 mg/dL (74-106)
[2024-09-18] MEDS: Insulin Lispro 100 UNIT/ML INSULN.PEN 8 UNIT SC (16:47)
[2024-09-18] MEDS: Insulin Lispro 100 UNIT/ML INSULN.PEN SC ×2 (16:48→22:02)
[2024-09-18] MEDS: Tamsulosin HCl 0.4 MG Capsule PO (16:49)
[2024-09-18] MEDS: Furosemide 40 MG/4 ML Vial IV (18:24)
[2024-09-18] MEDS: Albuterol 2.5 MG/3 ML VIAL.NEB. INHALATION (20:35)
[2024-09-18] MEDS: Budesonide Respules 0.5 MG/2 ML AMPUL.NEB. INHALATION (20:35)
[2024-09-18] MEDS: busPIRone 5 MG Tablet PO (22:02)
[2024-09-18 22:24] LABS: Bedside Glucose 327 mg/dL (74-106)
[2024-09-19] VITALS (12 sets, daily range): BP systolic 83–113; BP diastolic 56–76; PULSE 75–93; RESP 15–20; TEMP 36.4–37; O2SAT 93–99
[2024-09-19] MEDS: Acetaminophen 325 MG Tablet 650 MG PO (00:08)
[2024-09-19 06:02] LABS: Hematocrit 44.2 % (40-54); Hemoglobin 14.8 g/dL (13.0-16.5); Mean Corp Hgb Conc 33.5 g/dL (32-36); Mean Corpuscular Hgb 31.1 pg (27.0-32.0); Mean Corpuscular Volume 92.9 fL (80-94); Mean Platelet Vol. 9.5 fl (6.2-12.0); Platelet Count 297 K/mm3 (150-450); RBC Distribution Width CV 12.5 % (11.6-14.6); RBC Distribution Width SD 43.1 fl (35.1-43.9); Red Blood Count 4.76 M/mm3 (4.6-6.2); White Blood Count 7.7 K/mm3 (4.4-11.0)
[2024-09-19 06:31] LABS: Anion Gap 13 (5-15); BUN 21 mg/dL (4-19); BUN/Creat Ratio 18.5 RATIO (10-20); Calcium,Total 9.4 mg/dL (7.6-11.0); Carbon Dioxide 24.3 mmol/L (21.0-32.0); Chloride 99 mmol/L (98-108); Creatinine, Serum 1.13 mg/dL (0.70-1.20); EST Glomerular Filtration Rate 73 (>60); Estimated Creatinine Clearance 70.34 ml/min (50-250); Glucose 187 mg/dL (70-99); Potassium 3.7 mmol/L (3.3-5.1); Sodium Level 136 mmol/L (133-145)
[2024-09-19] MEDS: Albuterol 2.5 MG/3 ML VIAL.NEB. INHALATION ×3 (07:27→20:40)
[2024-09-19] MEDS: Budesonide Respules 0.5 MG/2 ML AMPUL.NEB. INHALATION (07:27)
[2024-09-19] MEDS: Insulin Lispro 100 UNIT/ML INSULN.PEN SC ×4 (07:35→21:38)
[2024-09-19] MEDS: Aspirin 81 MG TAB.CHEW PO (07:36)
[2024-09-19] MEDS: Insulin Lispro 100 UNIT/ML INSULN.PEN 8 UNIT SC ×3 (07:36→16:16)
[2024-09-19] MEDS: Empagliflozin 25 MG Tablet PO (09:55)
[2024-09-19] MEDS: Clopidogrel Bisulfate 75 MG Tablet PO (09:55)
[2024-09-19] MEDS: Atenolol 50 MG Tablet PO (09:56)
[2024-09-19] MEDS: Insulin Glargine-YFGN 100 UNIT/ML Pen 20 UNIT SC (09:56)
[2024-09-19] MEDS: Furosemide 40 MG/4 ML Vial IV (09:56)
[2024-09-19] MEDS: Cilostazol 50 MG Tablet PO (09:56)
[2024-09-19] MEDS: Pantoprazole Sodium 20 MG Tablet PO (09:56)
[2024-09-19] MEDS: busPIRone 5 MG Tablet PO (09:56)
[2024-09-19] MEDS: Isosorbide Mononitrate 30 MG Tablet PO (09:56)
[2024-09-19] MEDS: Ezetimibe 10 MG Tablet PO (09:56)
--- NOTE | 2024-09-19 11:57 | CASEMGMT ---
SW was informed that patient would like to complete advance directives. SW met with patient. Introduced self and role at [facility]. SW explained documents to patient. Patient misunderstood the Healthcare Living Will. Patient was interested in completing a Healthcare Power of Waiter/Waitress Economy Class. Patient said he would want his daughter Christine to be first then Yudelka Wang as his second, and his son Jaylen Garcia to be third. Patient did not know Christine's Yudelka's addresses. Patient gave SW permission to call both individuals to obtain their addresses. SW called Christine and her address is: [address] [place] [address]. SW called patient's niece Yudelka and obtained her address. Yudelka's address i: [facility] [address], [place]. Yudelka also had Jaylen 's phone number, . SW will complete documents and have patient sign them. Brielle WAYNE
--- NOTE | 2024-09-19 12:31 | CASEMGMT ---
SW assisted patient in completing Healthcare Power of Problem Manager. Copies were made and given to patient along with original. A copy was also placed in patient's chart. Brielle WAYNE
[2024-09-19] MEDS: 0.9% Normal Saline 250 ML IV.SOLN. IV (16:21)
[2024-09-19 18:20] LABS: Bedside Glucose 163 mg/dL (74-106)
[2024-09-19 18:20] LABS: Bedside Glucose 170 mg/dL (74-106)
[2024-09-19 18:20] LABS: Bedside Glucose 193 mg/dL (74-106)
[2024-09-19] MEDS: Tamsulosin HCl 0.4 MG Capsule PO (18:23)
--- NOTE | 2024-09-19 19:00 | PCM.PN.HOSP ---
Reason for Visit Reason for Visit: Diagnoses Acute on chronic systolic (congestive) heart failure (09/18/24) Subjective Subjective Patient was seen and examined today, patient does not know any of his medications, I had his niece bring and his medicine bottles from home and he is not taking several medications that we had listed that he was on. Patient's blood pressure was slightly low today, I made the decision to stop his Lasix and I will monitor his blood pressure. I will need to do a comprehensive list of medications when the patient is discharged. Patient's echocardiogram today showed an ejection fraction of 35%, talked briefly with cardiology about his care and they said to have him follow-up as an outpatient with them. Objective Data Objective Data Vital Signs: Vital Signs Temp Pulse Resp BP Pulse Ox O2 Del Method 97.6 F L 78 18 98/58 L 95 Room Air 09/19/24 18:19 09/19/24 18:19 09/19/24 18:19 09/19/24 18:19 09/19/24 18:19 09/19/24 18:19 Oxygen Delivery Method Room Air Weight: 87.467 kg Body Mass Index (BMI) 26.9 Intake & Output: Intake and Output for Last 24 Hours 09/17/24 09/18/24 09/19/24 23:59 23:59 23:59 Intake Total 220 / 520 1580 / 1580 Output Total 1800 / 1800 Balance 220 / 520 -220 / -220 Lab / Micro Data 09/19/24 05:25 09/20/24 06:35 Labs: Laboratory Results - last 24 hr 09/18/24 22:01: POC Glucose 327 H 09/19/24 05:25: WBC 7.7, RBC 4.76, Hgb 14.8, Hct 44.2, MCV 92.9, MCH 31.1, MCHC 33.5, RDW Std Deviation 43.1, RDW Coeff of Maycol 12.5, Plt Count 297, MPV 9.5, Sodium 136, Potassium 3.7, Chloride 99, Carbon Dioxide 24.3, Anion Gap 13, BUN 21 H, Creatinine 1.13, Estim Creat Clear Calc 70.34, Est GFR (MDRD) Non-Af 73, BUN/Creatinine Ratio 18.5, Glucose 187 H, Calcium 9.4 09/19/24 07:33: POC Glucose 170 H 09/19/24 11:24: POC Glucose 163 H 09/19/24 16:15: POC Glucose 193 H Radiography Diagnostic Testing: Radiology Impression Echocardiogram 09/18/24 13:45 Interpretation Summary The left ventricular ejection fraction is 35 %. Normal LV size. Cornelia : Akinetic. Mid-Anterior : Severely Hypokinetic. Compared to previous study, the left ventricular systolic function is the same.. The global longitudinal strain is severely abnormal. Ordering Physician: Clinton Soares Referring Physician: Rebel Nuñez M.D. Performed By: Lyn Hughes RCS Physical Exam Const alert, oriented x3, no apparent distress, average body habitus and healthy appearing Constitutional Narrative: Patient is a poor informant General Appearance: cooperative, well kempt and well developed Orientation / Consciousness: awake, oriented to person, oriented to place and oriented to time HEENT normocephalic, head/scalp atraumatic and moist oral mucous membranes Eyes PERRL, EOMs intact bilaterally and conjunctivae normal Neck supple, no JVD, thyroid normal and no carotid bruits General: trachea midline Resp normal respiratory effort, no retractions, no use of accessory muscles and clear to auscultation bilaterally Auscultation: Negative for rales, rhonchi or wheezes Cardio regular rate, regular rhythm, S1 normal heart sound, S2 normal heart sound, no murmurs, no rub and no gallops GI normal to inspection, nondistended, normoactive bowel sounds, soft to palpation, non-tender and non-distended Extremity no clubbing, cyanosis or edema Skin no rashes or lesions noted General Skin Exam: no breakdown Neuro oriented x3, CN's II-XII intact bilaterally, moves all extremities, no focal motor deficits and no sensory deficits noted Sensorium / Orientation: awake and alert Speech: speech normal Psych affect normal Assessment & Plan Assessment/Plan (1) Acute on chronic HFrEF (heart failure with reduced ejection fraction): PLAN: Plan 1. Acute on chronic congestive heart failure with reduced ejection fraction-patient's diuresis is being held at this time due to hypotension, patient will be reevaluated tomorrow, he will remain on a beta-jonatan for now #2 cardiomyopathy-most likely ischemic in nature, patient had a recent stress test in June of this year which did not show reversible ischemia. Patient's drug therapy will need to be maximized before he is evaluated for insertion of an ICD. This is going to be problematic with the patient's medical compliance being questionable. #3 noncompliance with medical treatment-it appears that the patient is not taking his medications as listed, these will need to be addressed when the patient is discharged home. It may be necessary for case management to have follow-up with the patient at home regarding his compliance with medications. #4 type 2 diabetes-blood sugars will be monitored, it appears that the patient is taking Humulin 50/50 20 units with breakfast and 35 units with dinner subcu daily, he is also taking Lantus insulin 20 units at bedtime. #5 hyperlipidemia-patient is on Repatha currently per cardiology #6 chronic obstructive pulmonary disease-patient is on 2 inhalers, he continues to smoke although he has been advised not to #7 hypotension-patient will be given a fluid bolus and reassessed in the morning for possible discharge if he is not hypotensive. #8 peripheral vascular disease-patient at one time was on Pletal, he is not taking it currently even though he has the medication at home. Again I talked at length with the patient's niece rabia and reviewed all his medications that he has at his home, it is evident that he has not been taking his medications as directed including his Lasix and spironolactone. Total clinical time spent by myself addressing the patient's medical issues, reviewing all of his data, and collaborating with patient's care team: 50 minutes Charges/Coding Visit Charges Inpatient E&M: [id number] [facility] H[facility] L3
[2024-09-19 22:01] LABS: Bedside Glucose 198 mg/dL (74-106)
[2024-09-20] VITALS (12 sets, daily range): BP systolic 87–141; BP diastolic 56–81; PULSE 75–86; RESP 16–20; TEMP 36.4–36.7; O2SAT 94–97
[2024-09-20 06:47] LABS: Bedside Glucose 154 mg/dL (74-106)
[2024-09-20] MEDS: Albuterol 2.5 MG/3 ML VIAL.NEB. INHALATION ×3 (07:08→20:19)
[2024-09-20 07:44] LABS: Anion Gap 11 (5-15); BUN 20 mg/dL (4-19); BUN/Creat Ratio 17.8 RATIO (10-20); Calcium,Total 9.4 mg/dL (7.6-11.0); Carbon Dioxide 25.3 mmol/L (21.0-32.0); Chloride 100 mmol/L (98-108); Creatinine, Serum 1.11 mg/dL (0.70-1.20); EST Glomerular Filtration Rate 74 (>60); Estimated Creatinine Clearance 71.61 ml/min (50-250); Glucose 148 mg/dL (70-99); Sodium Level 136 mmol/L (133-145)
[2024-09-20] MEDS: Isosorbide Mononitrate 30 MG Tablet PO (09:03)
[2024-09-20] MEDS: Atenolol 50 MG Tablet PO (09:03)
[2024-09-20] MEDS: Aspirin 81 MG TAB.CHEW PO (09:03)
[2024-09-20] MEDS: Ezetimibe 10 MG Tablet PO (09:03)
[2024-09-20] MEDS: Cilostazol 50 MG Tablet PO (09:03)
[2024-09-20] MEDS: Insulin Glargine-YFGN 100 UNIT/ML Pen 20 UNIT SC (09:03)
[2024-09-20] MEDS: Clopidogrel Bisulfate 75 MG Tablet PO (09:03)
[2024-09-20] MEDS: Empagliflozin 25 MG Tablet PO (09:03)
[2024-09-20] MEDS: Pantoprazole Sodium 20 MG Tablet PO (09:03)
[2024-09-20] MEDS: Insulin Lispro 100 UNIT/ML INSULN.PEN SC ×3 (11:17→22:08)
[2024-09-20] MEDS: 0.9% Saline Lock 10 ML Syringe IV (13:58)
[2024-09-20] MEDS: 0.9% Normal Saline (500mL Bag) 500 ML 250 ML IV (13:58)
[2024-09-20 15:34] LABS: Bedside Glucose 246 mg/dL (74-106)
[2024-09-20] MEDS: 0.9% Normal Saline (250mL Bag) 250 ML 125 ML IV (16:59)
--- NOTE | 2024-09-20 17:10 | CASEMGMT ---
VICKI RIVERA NOTE: Per Dr Carrington, pt does not know any of his medications, niece brought pt's pill bottles for Dr Carrington to review & pt not taking correct medications @ home. VICKI RIVERA to room. Pt sitting up in chair in room. NieceYudelka, and sonJaylen, in room visiting. Introduced self and role. Discussed CCN and questions answered. Pt and family all interested in a referral. Pt states, "I think that would be a good idea". Order placed. Pt requested CCN to call his niece and if she is not available, to call sonJaylen. This info was added to CCN order. Pt and family deny having other discharge needs or concerns. Mohsen WEISS RN CM
--- NOTE | 2024-09-20 19:10 | PCM.HOSP.N ---
Hospitalist Note Additional note: Per my review of the patient's medications on 09/19/2024, the patient is taking the following medications at home Repatha every 2 weeks, Humalog 50-50 20 units every 8 AM, 20 units nightly 9 PM, Lantus 20 units subcu at bedtime, Farxiga 10 mg once a day, Dulera 2 puffs twice daily, albuterol 2 puffs every 6 hours as needed, omeprazole 20 mg daily, Zetia 10 mg daily, Plavix 75 mg daily. Patient is not taking the following medications: Spironolactone 25 mg daily, Lasix 40 mg twice daily, atorvastatin 80 mg daily, metformin 1000 mg twice daily, Pletal 50 mg daily.
[2024-09-20 21:07] LABS: Bedside Glucose 190 mg/dL (74-106)
[2024-09-20 22:35] LABS: Bedside Glucose 152 mg/dL (74-106)
[2024-09-21] VITALS (8 sets, daily range): BP systolic 85–112; BP diastolic 48–75; PULSE 75–90; RESP 14–18; TEMP 36.2–36.6; O2SAT 94–98
[2024-09-21] MEDS: Acetaminophen 325 MG Tablet 650 MG PO (00:01)
[2024-09-21] MEDS: MELATONIN 3 MG TABLET PO (00:01)
[2024-09-21] MEDS: Albuterol 2.5 MG/3 ML VIAL.NEB. INHALATION ×2 (07:00→13:04)
[2024-09-21 07:21] LABS: Bedside Glucose 163 mg/dL (74-106)
[2024-09-21] MEDS: Insulin Lispro 100 UNIT/ML INSULN.PEN SC ×3 (07:30→17:43)
[2024-09-21 08:48] LABS: Cholesterol 93 mg/dL (<=200); High Density Lipoprotein 44 mg/dL; Low Density Lipoprotein Calc. 18 mg/dL; Triglycerides 155 mg/dL; Very Low Density Lipoprotein 31 mg/dL (5-40); cholesterol:hdl ratio screen 2.11
[2024-09-21] MEDS: Clopidogrel Bisulfate 75 MG Tablet PO (09:17)
[2024-09-21] MEDS: Ezetimibe 10 MG Tablet PO (09:17)
[2024-09-21] MEDS: Pantoprazole Sodium 20 MG Tablet PO (09:17)
[2024-09-21] MEDS: Empagliflozin 25 MG Tablet PO (09:17)
[2024-09-21] MEDS: Aspirin 81 MG TAB.CHEW PO (09:17)
[2024-09-21] MEDS: Cilostazol 50 MG Tablet PO (09:18)
[2024-09-21] MEDS: Isosorbide Mononitrate 30 MG Tablet PO (09:18)
[2024-09-21] MEDS: Insulin Glargine-YFGN 100 UNIT/ML Pen 20 UNIT SC (09:23)
[2024-09-21 12:36] LABS: Bedside Glucose 197 mg/dL (74-106)
--- NOTE | 2024-09-21 15:37 | PCM.DC ---
Discharge Instructions DC O2, CPAP, BIPAP needs Home O2 Discharge instructions: No Dressing / Incision Discharge Activity: - (Increase activity as tolerated) Follow Up Care Test Results: Test results from this visit will be discussed in further detail at your follow-up appointment, if applicable. Discharge Plan Admission Admit Date/Time: 09/18/24 13:39 Primary Reason for Your Visit: Shorness of breath and chest tightness Attending Provider: Donna Wolff Primary Care Provider: Ant Nuñez Consulting Providers: Clinton Soares; Seth Carrington Instructions Patient Instructions: Coping with Heart Failure, Cardiomyopathy Dc Additional Instructions / Restrictions: DISCHARGE INSTRUCTIONS PLEASE READ *Please take this with you to your next doctors appointment* - There was some confusion surrounding which medications you were taking and were supposed to be taking prior to admission, given your decrease in ejection fraction (how well the heart pumps) you likely have different medication requirements now so you have had multiple medication changes: -You will be taking Lasix (furosemide) 40 mg once daily and Plavix ( clopidogrel) 75 mg daily - you will continue your insulin, home inhaler, Repatha injection, omeprazole, Zetia (ezetimibe) , Farxiga (depagliflozin), alfuzosin, and aspirin 81mg - would recommend discussing your omeprazole and clopidogrel with your primary prescribing physician as they may want to alter one of these medications to avoid medication interactions -You will discontinue all other medications at this time. Please remove them from the area you prepare your medications to decrease confusion -Would recommend lab work (BMP) to check your kidney function and potassium in 2 to 3 days through your primary care physician's office given you will be on Lasix. Please call their office upon discharge to obtain order for lab work. - Please follow-up with the cardiology office upon discharge, would recommend following up in the next 1 to 2 weeks, please call their office to schedule an appointment if there is not a close follow up already scheduled - strongly advised smoking cessation -Weigh yourself every day. A sudden weight gain can mean you are retaining fluid. Weigh yourself at the same time of day and in the same kind of clothes. Ideally, weigh yourself first thing in the morning after you empty your bladder, but before you eat breakfast. -Please call your physician if your weight goes up by more than 2 pounds in 1 day or 5 pounds in 1 week. This can be a sign that you are retaining more fluid than you should be. Clues to weight gain include checking your ankles for swelling, or noticing you are short of breath when you lie down -Please limit your sodium intake to less than 3 g/day. Here are tips: Limit canned, dried, packaged, and fast foods. Don't add salt to your food at the table. Season foods with herbs instead of salt when you cook. When you eat out, ask that the catering sous chef not add any salt to your dish. Don't eat fried or greasy foods. Be careful of bottled beverages. They can contain a lot of salt -Call 911 right away if you have: -Severe shortness of breath, such that you can't catch your breath even while resting -Severe chest pain that does not resolve with rest or nitroglycerin -[place], foamy mucus with cough and shortness of breath -An ongoing rapid or irregular heartbeat -Passing out or fainting -Stroke symptoms such as sudden numbness or weakness on one side of your face, arm, or leg or sudden confusion, trouble speaking or vision changes -Please call your primary care provider's office upon discharge to schedule a hospital follow up within 1 week. -For any concerning signs or symptoms please call 911 or proceed to the nearest emergency department Discharge Orders/Prescriptions Prescriptions: New furosemide 40 mg Tablet 40 mg PO DAILY 30 Days Qty: 30 0RF clopidogrel 75 mg Tablet 75 mg PO DAILY 30 Days Qty: 30 0RF Continued nitroglycerin 0.4 mg tablet, sublingual 0.4 mg Sublingual Q5M PRN (Reason: Cardiac/Chest Pain) Qty: 20 1RF alfuzosin 10 mg tablet extended release 24 hr 10 mg PO DAILY Rx Instructions: administer after the same meal each day (DME) Handicap placard See Rx Instructions .Route .MEDSUPPLY Qty: 1 0RF Rx Instructions: Due to COPD, unable to walk 50 yards without assistance, duration 5 years. (DME) pen needle, diabetic [Comfort EZ Pen [place]] 31 gauge x 5/16" needle See Rx Instructions .Route Qty: 100 3RF Rx Instructions: As directed fluticasone propionate [Flonase Allergy Relief] 50 mcg/actuation spray,suspension 2 spray intranasal DAILY PRN (Reason: nasal congestion) Rx Instructions: administer into each nostril Humalog Mix 50-50 KwikPen 100 unit/mL (50-50) insulin pen 20 - 35 unit SC BID Patient Comments: pt based on sliding scale Rx Instructions: 9 pm: eat a meal, take 20 units insulin 1 am: eat a meal during work break 8 am: eat a meal take 20 units insulin albuterol sulfate 90 mcg/actuation HFA aerosol inhaler 2 puff inhalation Q4H PRN (Reason: shortness of breath or wheezing) ezetimibe 10 mg tablet 10 mg PO DAILY insulin glargine [Lantus Solostar U-100 Insulin] 100 unit/mL (3 mL) insulin pen 20 unit subcut DAILY Dulera 100-5 mcg/actuation HFA aerosol inhaler 2 puff inhalation BID aspirin 81 mg Tablet,Chewable 81 mg PO BREAKFAST Qty: 0 0RF (DME) FreeStyle Test Strip See Rx Instructions .ROUTE .MEDSUPPLY Qty: 50 11RF Rx Instructions: check blood glucose daily (DME) blood-glucose meter [FreeStyle System Kit] Kit See Rx Instructions .ROUTE .MEDSUPPLY Qty: 1 0RF Rx Instructions: check blood glucose daily for type 2 DM (DME) lancets [FreeStyle Lancets] 28 gauge misc See Rx Instructions .ROUTE .MEDSUPPLY Qty: 50 11RF Rx Instructions: Check blood glucose daily for type 2 DM (DME) pen needle, diabetic [1st Tier Unifine Pentips Plus] 31 gauge x 3/16" needle See Rx Instructions .ROUTE .MEDSUPPLY Qty: 100 1RF Rx Instructions: use with lanmalcolm Sosaa SureClick 140 mg/mL pen injector 140 mg subcut Q2W Qty: 6 3RF omeprazole 20 mg capsule,delayed release(DR/EC) 20 mg PO DAILY Qty: 90 1RF dapagliflozin propanediol [Farxiga] 10 mg tablet 10 mg PO DAILY Qty: 90 1RF Discontinued isosorbide mononitrate 30 mg tablet extended release 24 hr 30 mg PO DAILY Rx Instructions: TAKE 1 TABLET BY MOUTH EVERY DAY metformin 1,000 mg tablet 1,000 mg PO BID losartan 25 mg tablet 25 mg PO DAILY atenolol 50 mg tablet 50 mg PO DAILY furosemide 40 mg Tablet 40 mg PO BIDLX Qty: 60 0RF spironolactone 25 mg Tablet 25 mg PO DAILY Qty: 30 0RF Patient Comments: PT UNSURE IF HE TAKES THIS MEDICATION, buspirone 5 mg tablet 5 mg PO BID Qty: 180 1RF Patient Comments: pt takes once a day Referrals / Follow Up: Ant Nuñez DO [Primary Care Provider] - Within 1 Week Magaly Abdi PA [Med Staff - [facility]] - Within 2 Weeks Disposition Disposition (needs filled in before D/C Order can be placed): Home, Self Care
--- NOTE | 2024-09-21 16:08 | CASEMGMT ---
Patient has order for discharge. RN CM in to discuss needs at discharge. Patient and niece deny further needs or help at discharge. Patient had no further questions or concerns.
--- NOTE | 2024-09-21 16:22 | PCM.DC.SUM ---
Providers Date of Admission: 09/18/24 Date of Discharge: 09/21/24 Primary Care Physician: Dr. Ant Nuñez, Reason For Visit: HFrEF EXACERBATION Diagnosis Discharge Diagnosis (1) Acute on chronic HFrEF (heart failure with reduced ejection fraction): Status: Chronic Code(s): I50.23 - Acute on chronic systolic (congestive) heart failure Plan # Acute on chronic heart failure with reduced ejection fraction # History of coronary artery disease with CABG # COPD # BPH # Type 2 diabetes Medications at Discharge Home Medications blood sugar diagnostic (FreeStyle Test strips) #50 ea 04/02/21 blood-glucose meter (FreeStyle System Kit) #1 ea 04/02/21 lancets 28 gauge (FreeStyle Lancets) #50 ea 04/02/21 pen needle, diabetic 31 gauge x 3/16" (1st Tier Unifine Pentips Plus) #100 ea 04/02/21 alfuzosin 10 mg tablet,extended release 24 hr 10 mg PO DAILY bph 01/26/23 Handicap placard #1 ea 07/22/23 pen needle, diabetic 31 gauge x 5/16" (Comfort EZ Pen [place]) #100 ea 10/28/23 evolocumab 140 mg/mL subcutaneous pen injector (Repatha SureClick) 140 mg subcut Q2W cholesterol #6 mL 05/09/24 albuterol sulfate 90 mcg/actuation aerosol inhaler 2 puff inhalation Q4H PRN shortness of breath or wheezing 06/17/24 ezetimibe 10 mg tablet 10 mg PO DAILY cholesterol 06/17/24 insulin glargine 100 unit/mL (3 mL) subcutaneous pen (Lantus Solostar U-100 Insulin) 20 unit subcut DAILY Diabetes 06/17/24 mometasone-formoterol HFA 100 mcg-5 mcg/actuation aerosol inhaler (Dulera) 2 puff inhalation BID COPD 06/18/24 aspirin 81 mg chewable tablet 81 mg PO BREAKFAST preventative #0 tabs 06/20/24 Farxiga 10 mg tablet (dapagliflozin propanediol) 10 mg PO DAILY diabetes #90 TABLETS 09/13/24 omeprazole 20 mg capsule,delayed release 20 mg PO DAILY reflux #90 caps 09/13/24 fluticasone propionate 50 mcg/actuation nasal spray,suspension (Flonase Allergy Relief) 2 spray intranasal DAILY PRN nasal congestion 09/18/24 insulin lispro protamine-lispro 100 unit/mL (50-50) subcutaneous pen (Humalog Mix 50-50 KwikPen) 20 - 35 unit subcut BID diabetes 09/18/24 clopidogrel 75 mg tablet 75 mg PO DAILY 30 days #30 tabs 09/21/24 furosemide 40 mg tablet 40 mg PO DAILY 30 days #30 tabs 09/21/24 nitroglycerin 0.4 mg sublingual tablet 0.4 mg sublingual Q5M PRN Cardiac/Chest Pain #20 tabs 09/21/24 Hospital Course Summary of Care Provided Minutes Spent on Discharge: 35 Hospital Course: 64 y/o male hx PAD, CABG 2006, COPD, BPH, DMII who presented to [facility] ED 09/18/2024 with shortness of breath and volume overload for 3 days. He had recent hospitalization in June for similar presentation and had previous nuclear stress with evidence of apical infarct and echo with EF of 35 to 40%, recommendation was for maximal medical therapy on discharge. On presentation to the ED 09/18/2024 BNP was elevated at 2500 with a troponin of 62 with subsequent of 64 and chest x-ray suggestive of fluid overload. He was diagnosed with acute exacerbation of heart failure with reduced ejection fraction and started on IV Lasix which improved patient's symptoms significantly with improvement in volume status. Repeat echo obtained which showed EF 35% with akinetic apex and mid anterior severely hypokinetic. Upon further investigation by previous provider patient had been unclear what he was taking as he had medications filled at multiple pharmacies and the medicines he had did not match up with the medicines that it seemed he was supposed to be taking. Again ultimately he improved from a volume status standpoint. 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 Patient did have soft blood pressures so he had several medications held and ultimately blood pressure stabilized with systolic around 90 and patient completely asymptomatic. Given this blood pressure we will hold off on antihypertensives at this time and discharged on Lasix. Discussed with patient discharge versus continued hospitalization for further titration and patient would like to go home, given his stability and improvement in fluid status this is not unreasonable. Patient reports his niece will be able to help him with medications. Patient with no new or acute complaints, shortness of breath and swelling significantly improved and reports he has been able to get up and move around well. Discharge instructions as follows: - There was some confusion surrounding which medications you were taking and were supposed to be taking prior to admission, given your decrease in ejection fraction (how well the heart pumps) you likely have different medication requirements now so you have had multiple medication changes: -You will be taking Lasix (furosemide) 40 mg once daily and Plavix ( clopidogrel) 75 mg daily - you will continue your insulin, home inhaler, Repatha injection, omeprazole, Zetia (ezetimibe) , Farxiga (depagliflozin), alfuzosin, and aspirin 81mg - would recommend discussing your omeprazole and clopidogrel with your primary prescribing physician as they may want to alter one of these medications to avoid medication interactions -You will discontinue all other medications at this time. Please remove them from the area you prepare your medications to decrease confusion -Would recommend lab work (BMP) to check your kidney function and potassium in 2 to 3 days through your primary care physician's office given you will be on Lasix. Please call their office upon discharge to obtain order for lab work. - Please follow-up with the cardiology office upon discharge, would recommend following up in the next 1 to 2 weeks, please call their office to schedule an appointment if there is not a close follow up already scheduled - strongly advised smoking cessation -Weigh yourself every day. A sudden weight gain can mean you are retaining fluid. Weigh yourself at the same time of day and in the same kind of clothes. Ideally, weigh yourself first thing in the morning after you empty your bladder, but before you eat breakfast. -Please call your physician if your weight goes up by more than 2 pounds in 1 day or 5 pounds in 1 week. This can be a sign that you are retaining more fluid than you should be. Clues to weight gain include checking your ankles for swelling, or noticing you are short of breath when you lie down -Please limit your sodium intake to less than 3 g/day. Here are tips: Limit canned, dried, packaged, and fast foods. Don't add salt to your food at the table. Season foods with herbs instead of salt when you cook. When you eat out, ask that the windrower operator not add any salt to your dish. Don't eat fried or greasy foods. Be careful of bottled beverages. They can contain a lot of salt -Call 911 right away if you have: -Severe shortness of breath, such that you can't catch your breath even while resting -Severe chest pain that does not resolve with rest or nitroglycerin -[place], foamy mucus with cough and shortness of breath -An ongoing rapid or irregular heartbeat -Passing out or fainting -Stroke symptoms such as sudden numbness or weakness on one side of your face, arm, or leg or sudden confusion, trouble speaking or vision changes -Please call your primary care provider's office upon discharge to schedule a hospital follow up within 1 week. -For any concerning signs or symptoms please call 911 or proceed to the nearest emergency department Physical Exam Narrative General: Alert, oriented, no apparent distress HEENT: Atraumatic, normocephalic Eyes: Anicteric, normal conjunctiva, extraocular movements grossly intact Neck: Supple Respiratory: Normal respiratory effort without significant crackles or rhonchi Cardiovascular: Regular rate and rhythm GI: Soft, nontender, nondistended Extremities: Both lower extremities wrapped with no significant pitting edema appreciated Musculoskeletal: Moving all extremities Neuro: No overt focal neurological deficits Skin: No rashes appreciated Psych: Cooperative Weight / BMI Weight Weight: 87.467 kg Body Mass Index (BMI) 26.9 ABG / Lab / Microbiology Data 09/19/24 05:25 09/20/24 06:35 Laboratory: Laboratory Results - last 24 hr 09/20/24 16:58: POC Glucose 190 H 09/20/24 22:08: POC Glucose 152 H 09/21/24 06:44: Triglycerides 155, Cholesterol 93, LDL Cholesterol, Calc 18, VLDL Cholesterol 31, HDL Cholesterol 44, Cholesterol/HDL Ratio 2.11 09/21/24 07:03: POC Glucose 163 H 09/21/24 12:13: POC Glucose 197 H 09/21/24 17:40: POC Glucose 223 H D/C Instructions Discharge Diet: - (-DASH diet, 3000 mg sodium restriction, 2 L fluid restriction) DC O2, CPAP, BIPAP Needs Home O2 Discharge instructions: No Meaningful Use Info Meaningful Use Meaningful Use Diagnoses (Choose all that apply): CHF CHF NYDIA/ARB ordered at discharge?: No Reason NYDIA/ARB not ordered?: Hypotension Documented LVEF (%): 35 Ischemic Stroke Statin Dosing Therapy Reference: STATIN DOSE THERAPY REFERENCE: * Patients > 75 years receive moderate or high dose statin therapy. * Patients 75 years or YOUNGER should receive HIGH intensity statin dose unless contraindicated. You will be required to document reason for non-treatment if statin daily dose does not meet guidelines. HIGH DOSE STATIN THERAPY DAILY Atorvastatin > than or = to 40 mg Rosuvastatin > than or = to 20 mg Amlodipine + Atorvastatin > than or = to 2.5/40 mg Ezetimibe + Simvastatin 10/80 mg Simvastatin 80mg Discharge Plan Admission Admit Date/Time: 09/18/24 13:39 Primary Reason for Your Visit: [place] of breath and chest tightness Attending Provider: Donna Wolff Primary Care Provider: Ant Nuñez Consulting Providers: Clinton Soares; Seth Carrington Instructions Patient Instructions: Coping with Heart Failure, Cardiomyopathy Dc Additional Instructions / Restrictions: DISCHARGE INSTRUCTIONS PLEASE READ *Please take this with you to your next doctors appointment* - There was some confusion surrounding which medications you were taking and were supposed to be taking prior to admission, given your decrease in ejection fraction (how well the heart pumps) you likely have different medication requirements now so you have had multiple medication changes: -You will be taking Lasix (furosemide) 40 mg once daily and Plavix ( clopidogrel) 75 mg daily - you will continue your insulin, home inhaler, Repatha injection, omeprazole, Zetia (ezetimibe) , Farxiga (depagliflozin), alfuzosin, and aspirin 81mg - would recommend discussing your omeprazole and clopidogrel with your primary prescribing physician as they may want to alter one of these medications to avoid medication interactions -You will discontinue all other medications at this time. Please remove them from the area you prepare your medications to decrease confusion -Would recommend lab work (BMP) to check your kidney function and potassium in 2 to 3 days through your primary care physician's office given you will be on Lasix. Please call their office upon discharge to obtain order for lab work. - Please follow-up with the cardiology office upon discharge, would recommend following up in the next 1 to 2 weeks, please call their office to schedule an appointment if there is not a close follow up already scheduled - strongly advised smoking cessation -Weigh yourself every day. A sudden weight gain can mean you are retaining fluid. Weigh yourself at the same time of day and in the same kind of clothes. Ideally, weigh yourself first thing in the morning after you empty your bladder, but before you eat breakfast. -Please call your physician if your weight goes up by more than 2 pounds in 1 day or 5 pounds in 1 week. This can be a sign that you are retaining more fluid than you should be. Clues to weight gain include checking your ankles for swelling, or noticing you are short of breath when you lie down -Please limit your sodium intake to less than 3 g/day. Here are tips: Limit canned, dried, packaged, and fast foods. Don't add salt to your food at the table. Season foods with herbs instead of salt when you cook. When you eat out, ask that the windrower operator not add any salt to your dish. Don't eat fried or greasy foods. Be careful of bottled beverages. They can contain a lot of salt -Call 911 right away if you have: -Severe shortness of breath, such that you can't catch your breath even while resting -Severe chest pain that does not resolve with rest or nitroglycerin -[place], foamy mucus with cough and shortness of breath -An ongoing rapid or irregular heartbeat -Passing out or fainting -Stroke symptoms such as sudden numbness or weakness on one side of your face, arm, or leg or sudden confusion, trouble speaking or vision changes -Please call your primary care provider's office upon discharge to schedule a hospital follow up within 1 week. -For any concerning signs or symptoms please call 911 or proceed to the nearest emergency department Discharge Orders/Prescriptions Prescriptions: New furosemide 40 mg Tablet 40 mg PO DAILY 30 Days Qty: 30 0RF clopidogrel 75 mg Tablet 75 mg PO DAILY 30 Days Qty: 30 0RF Continued alfuzosin 10 mg tablet extended release 24 hr 10 mg PO DAILY Rx Instructions: administer after the same meal each day (DME) Handicap placard See Rx Instructions .Route .MEDSUPPLY Qty: 1 0RF Rx Instructions: Due to COPD, unable to walk 50 yards without assistance, duration 5 years. (DME) pen needle, diabetic [Comfort EZ Pen [place]] 31 gauge x 5/16" needle See Rx Instructions .Route Qty: 100 3RF Rx Instructions: As directed fluticasone propionate [Flonase Allergy Relief] 50 mcg/actuation spray,suspension 2 spray intranasal DAILY PRN (Reason: nasal congestion) Rx Instructions: administer into each nostril Humalog Mix 50-50 KwikPen 100 unit/mL (50-50) insulin pen 20 - 35 unit SC BID Patient Comments: pt based on sliding scale Rx Instructions: 9 pm: eat a meal, take 20 units insulin 1 am: eat a meal during work break 8 am: eat a meal take 20 units insulin nitroglycerin 0.4 mg tablet, sublingual 0.4 mg Sublingual Q5M PRN (Reason: Cardiac/Chest Pain) Qty: 20 1RF albuterol sulfate 90 mcg/actuation HFA aerosol inhaler 2 puff inhalation Q4H PRN (Reason: shortness of breath or wheezing) ezetimibe 10 mg tablet 10 mg PO DAILY insulin glargine [Lantus Solostar U-100 Insulin] 100 unit/mL (3 mL) insulin pen 20 unit subcut DAILY Dulera 100-5 mcg/actuation HFA aerosol inhaler 2 puff inhalation BID aspirin 81 mg Tablet,Chewable 81 mg PO BREAKFAST Qty: 0 0RF (DME) FreeStyle Test Strip See Rx Instructions .ROUTE .MEDSUPPLY Qty: 50 11RF Rx Instructions: check blood glucose daily (DME) blood-glucose meter [FreeStyle System Kit] Kit See Rx Instructions .ROUTE .MEDSUPPLY Qty: 1 0RF Rx Instructions: check blood glucose daily for type 2 DM (DME) lancets [FreeStyle Lancets] 28 gauge misc See Rx Instructions .ROUTE .MEDSUPPLY Qty: 50 11RF Rx Instructions: Check blood glucose daily for type 2 DM (DME) pen needle, diabetic [1st Tier Unifine Pentips Plus] 31 gauge x 3/16" needle See Rx Instructions .ROUTE .MEDSUPPLY Qty: 100 1RF Rx Instructions: use with lantus nightly Repatha SureClick 140 mg/mL pen injector 140 mg subcut Q2W Qty: 6 3RF omeprazole 20 mg capsule,delayed release(DR/EC) 20 mg PO DAILY Qty: 90 1RF dapagliflozin propanediol [Farxiga] 10 mg tablet 10 mg PO DAILY Qty: 90 1RF Discontinued isosorbide mononitrate 30 mg tablet extended release 24 hr 30 mg PO DAILY Rx Instructions: TAKE 1 TABLET BY MOUTH EVERY DAY metformin 1,000 mg tablet 1,000 mg PO BID losartan 25 mg tablet 25 mg PO DAILY atenolol 50 mg tablet 50 mg PO DAILY furosemide 40 mg Tablet 40 mg PO BIDLX Qty: 60 0RF spironolactone 25 mg Tablet 25 mg PO DAILY Qty: 30 0RF Patient Comments: PT UNSURE IF HE TAKES THIS MEDICATION, buspirone 5 mg tablet 5 mg PO BID Qty: 180 1RF Patient Comments: pt takes once a day Referrals / Follow Up: Ant Nuñez DO [Primary Care Provider] - Within 1 Week Magaly Abdi PA [Med Staff - Adv Practice Prof] - Within 2 Weeks Disposition Disposition (needs filled in before D/C Order can be placed): Home, Self Care Charges/Coding Visit Charges Inpatient E&M: 70656 Disch Hosp >30min
[2024-09-21 18:05] LABS: Bedside Glucose 223 mg/dL (74-106)
--- NOTE | 2024-09-23 10:58 | CCN.REFER ---
ALYSSA W/ PATIENT @ [phone] TO DISCUSS AND ARRANGE CCN HOME VISIT. AWAITING CALL BACK.
--- NOTE | 2024-09-28 12:11 | CCN.REFER ---
LEFT ANOTHER MESSAGE FOR PATIENT TO CALL THIS RN BACK TO DISCUSS CCN.
--- NOTE | 2024-10-04 08:27 | CCN.REFER ---
MULTIPLE VM LEFT FOR PATIENT W/ NO RETURNED CALL. THIS RN SPOKE WITH [facility] LETTING THEM KNOW I AM TRYING TO CONNECT WITH HIM.
== END 2024-09-21 18:38 | disposition home or self-care (01) | DRG 280 ==
LOC: ED 13:46 → PCU 09-19 07:03
PROVIDERS: Internal Medicine; Admitting Provider Hospitalist; Emergency Provider Emergency Medicine; PCP Family Medicine; Visit Provider Internal Medicine
DX: I11.0 Hypertensive heart disease with heart failure (principal); I50.23 Acute on chronic systolic (congestive) heart failure; J43.9 Emphysema, unspecified; I21.A1 Myocardial infarction type 2; I42.9 Cardiomyopathy, unspecified; E11.51 Type 2 diabetes mellitus with diabetic peripheral angiopathy without gangrene; Z79.4 Long term (current) use of insulin; I95.9 Hypotension, unspecified; I25.10 Atherosclerotic heart disease of native coronary artery without angina pectoris; F41.9 Anxiety disorder, unspecified; F17.200 Nicotine dependence, unspecified, uncomplicated; E87.5 Hyperkalemia; E78.00 Pure hypercholesterolemia, unspecified; I25.2 Old myocardial infarction; K21.9 Gastro-esophageal reflux disease without esophagitis; Z95.1 Presence of aortocoronary bypass graft; Z79.84 Long term (current) use of oral hypoglycemic drugs; Z79.02 Long term (current) use of antithrombotics/antiplatelets; Z79.899 Other long term (current) drug therapy; Z79.51 Long term (current) use of inhaled steroids; Z79.82 Long term (current) use of aspirin; Z91.199 Patient's noncompliance with other medical treatment and regimen due to unspecified reason; N40.0 Benign prostatic hyperplasia without lower urinary tract symptoms; R79.89 Other specified abnormal findings of blood chemistry; F32.A Depression, unspecified
CPT/HCPCS: 36415; 71045; 80048; 80061; 82962; 83036; 83880; 84484; 85025; 85027; 93005; 93308; 94640; 96361; 96374; 96376; 99221; 99285; A4216; G0378; J1938

== ENCOUNTER 2024-10-19 18:19 | Emergency (ER) | payer MEDICAID, SELFPAY ==
[2024-10-19] VITALS (9 sets, daily range): BP systolic 105–120; BP diastolic 71–87; PULSE 93–103; RESP 14–22; TEMP 36.6; O2SAT 93–98; BMI 27.0
--- NOTE | 2024-10-19 18:31 | ED.VIS.CHEST ---
HPI History of Present Illness Chief Complaint: Chest Pain [facility] Medical History GERD (gastroesophageal reflux disease) Anxiety High blood cholesterol Diabetes mellitus Emphysema, unspecified COPD (chronic obstructive pulmonary disease) Decreased left ventricular function Encounter for screening for malignant neoplasm of lung in current smoker with 30 pack year history or greater Stenosis of right carotid artery Insulin dependent diabetes mellitus History of non-ST elevation myocardial infarction (NSTEMI) (06/11/18) Emphysema lung Asthma Type 2 diabetes mellitus Arthritis Pancreatitis GERD (gastroesophageal reflux disease) Nicotine dependence Atherosclerosis of coronary artery of [place] heart without angina pectoris Hyperlipidemia Essential (primary) hypertension Home Medications ?Medication ?Instructions ?Recorded ?Last Taken ?Type blood sugar diagnostic (FreeStyle #50 ea 04/02/21 Unknown Rx Test strips) blood-glucose meter (FreeStyle #1 ea 04/02/21 Unknown Rx System Kit) lancets 28 gauge (FreeStyle #50 ea 04/02/21 Unknown Rx Lancets) pen needle, diabetic 31 gauge x #100 ea 04/02/21 Unknown Rx 3/16 (1st Tier Unifine Pentips Plus) Handicap placard #1 ea 07/22/23 Unknown Rx pen needle, diabetic 31 gauge x #100 ea 10/28/23 Unknown Rx 5/16 (Comfort EZ Pen [place]) evolocumab 140 mg/mL subcutaneous 140 mg subcut Q2W cholesterol #6 mL 05/09/24 09/12/24 Rx pen injector (Wolf Bernal) albuterol sulfate 90 mcg/actuation 2 puff inhalation Q4H PRN 06/17/24 09/17/24 History aerosol inhaler shortness of breath or wheezing insulin glargine 100 unit/mL (3 20 unit subcut DAILY Diabetes 06/17/24 09/18/24 History mL) subcutaneous pen (Lantus Solostar U-100 Insulin) aspirin 81 mg chewable tablet 81 mg PO BREAKFAST preventative #0 06/20/24 09/18/24 Rx tabs omeprazole 20 mg capsule,delayed 20 mg PO DAILY reflux #90 caps 09/13/24 09/18/24 Rx release fluticasone propionate 50 2 spray intranasal DAILY PRN nasal 09/18/24 Unknown History mcg/actuation nasal congestion spray,suspension (Flonase Allergy Relief) insulin lispro protamine-lispro 20 - 35 unit subcut BID diabetes 09/18/24 09/17/24 History 100 unit/mL (50-50) subcutaneous pen (Humalog Mix 50-50 KwikPen) clopidogrel 75 mg tablet 75 mg PO DAILY #90 tabs 09/27/24 Unknown Rx furosemide 40 mg tablet 40 mg PO DAILY #90 tabs 09/27/24 Unknown Rx nitroglycerin 0.4 mg sublingual 0.4 mg sublingual Q5M PRN 09/27/24 Unknown Rx tablet Cardiac/Chest Pain #25 tabs furosemide 40 mg tablet (Lasix) 40 mg PO DAILY 30 days #30 tabs 10/19/24 Unknown Rx Allergy/AdvReac Type Severity Reaction Status Date / Time amoxicillin Allergy Angioedema Verified 10/19/24 18:19 lindane Allergy Rash Verified 10/19/24 18:19 Family History Father Asthma Alcoholism Arthritis Heart disease Hypertension High cholesterol CVA (cerebral vascular accident) Lung cancer Grandfather Myocardial infarction Surgical History S/P CABG x 4 History of hernia repair History of carotid endarterectomy (01/06/14) H/O coronary artery bypass surgery (2006) History of left heart catheterization (06/11/18) Social History Smoking Status: Heavy Smoker (>10/day) Tobacco: How many years used: 45 Electronic Cigarette Use: not used second hand exposure: Yes quit status: considering quitting alcohol intake: never substance use type: does not use caffeine: Yes Type: coffee Number of servings: 5 what type of physical activity do you participate in: none EXAM Physical Exam Const Vital Signs: 10/19/24 18:20 10/19/24 18:36 10/19/24 18:41 Temperature 97.8 F Temperature Source Temporal Pulse Rate 103 H Respiratory Rate 22 H Respiratory Effort Normal Blood Pressure 119/78 Blood Pressure Mean 91 Pulse Ox 97 93 Oxygen Delivery Method Room Air Room Air 10/19/24 19:19 10/19/24 20:00 10/19/24 21:00 Temperature Temperature Source Pulse Rate 93 93 Respiratory Rate 14 15 Respiratory Effort Blood Pressure 105/71 115/72 115/87 H Blood Pressure Mean 82 85 97 Pulse Ox 95 93 96 Oxygen Delivery Method Room Air 10/19/24 22:00 10/19/24 23:00 Temperature Temperature Source Pulse Rate 99 100 Respiratory Rate 17 18 Respiratory Effort Blood Pressure 120/80 115/81 H Blood Pressure Mean 92 92 Pulse Ox 97 98 Oxygen Delivery Method [facility] Narrative Medical decision making narrative: HISTORY OF PRESENT ILLNESS: Chief complaint: Chest pain 64-year-old male history of CAD status post CABG CHF, right valve stenosis, type 2 diabetes, COPD, PAD, hyperlipidemia, hypertension, type 2 diabetes presents with chest pain and increasing shortness of breath for 3 days. Also notes swelling in bilateral lower extremities. Notes he has not taken Lasix for the past week secondary to been able to fill the prescription because of pharmacy related issues. States he has a prescription, has insurance but his pharmacy states that it will not be ready for 24 hours. When he calls the next day they state the same thing notes cough is productive yellow-green sputum. Thinks it could be pneumonia. Also notes swelling in the legs. No chest pain is located along his right rib margin. It is worse with cough. It is not worse with exertion. He notes that shortness of breath is worse with exertion. He denies chills but does note a fever of 101 yesterday. The patient denies vomiting or diarrhea. He denies family or personal history of connective tissue diseases, aneurysms. Denies focal weakness or loss of sensation. He denies any PE risk factors. He notes he still smoking REVIEW OF SYSTEMS: Pertinent positives: Chest pain, shortness of breath, leg swelling, cough, fever Pertinent negatives: As per HPI PHYSICAL EXAM: Nursing triage notes reviewed, Vital signs reviewed Constitutional: please see [facility] HENT: MMM Eyes: Pupils equal round and reactive to light, Extraocular muscles intact Neck: No stridor, no JVD, full neck ROM Lungs: Clear to auscultation, No wheezing or rales. No increased work of breathing, no conversational dyspnea, no accessory muscle use, no nasal flaring. No respiratory distress noted Heart: Regular rate and rhythm, No murmurs, No rubs and No gallops, 2+ distal pulses (radial, femoral, posterior tibial) in all extremities Abdomen: Soft, there is no tenderness, rigidity, rebound or guarding, no obvious peritoneal signs, no palpable pulsatile abdominal masses, no auscultated abdominal bruit : No CVAT Extremities: No edema Neuro: No new focal neurological deficits, cranial nerves II through XII intact, 5/5 strength in all present extremities. Intact sensation to light touch in all present extremities, 2+ reflexes bilateral patella tendons. Skin: No rash or lesions noted MEDICAL DECISION MAKING: Chief Complaint: please see HPI External records reviewed: Reviewed prior imaging studies: Reviewed echocardiogram from September 2024 which showed ejection fraction 35% with severe apex, mid anterior hypokinesis Factors affecting care: As per [facility] Social determinants of health: smoker History obtained from others: none Consults: none [facility] Narrative: The patient was initially tachycardic with a heart rate of 103, tachypneic with initial respiratory of 22 saturating 97% on room air. Exam with 2+ pitting edema bilateral lower extremities but there is no calf tenderness. No stigmata of VTE on initial exam. I considered the following differential diagnosis: Medication noncompliance, ACS, anemia, electrolyte disturbance, pneumonia, COPD exacerbation, CHF exacerbation, PE, aortic dissection amongst others I obtained a broad lab and imaging evaluation to further determine if the patient was suffering from a life-threatening etiology. ALL IMAGES (IF OBTAINED) HAVE BEEN PERSONALLY REVIEWED AND INTERPRETED BY MYSELF. EKG with normal sinus rhythm rate of 96, normal axis, ST depressions noted laterally which were present on prior EKG, patient also has T wave inversions laterally which were present on prior EKG from 09/18/2024 High-sensitivity troponin is negative, no evidence of myocardial ischemiax3 Chest x-ray was read reviewed person myself showed no evidence of obvious pneumonia. Showed cardiomegaly and sternotomy wires, no pneumothorax. Radiologist noted mild cardiomegaly. BNP elevated consistent with heart failure and medication noncompliance CBC without leukocytosis, severe anemia, no thrombocytopenia. BMP with hemolyzed hyperkalemia likely within normal limits, no BENOIT. Noted hyperglycemia but no sign of anion gap or metabolic acidosis The synthesis of the patient's history, physical exam, labs images suggest medical compliance causing volume overload. I was able to write the patient Lasix here to provide meds to beds to give the patient medication. While I considered admitting the patient given multiple medical comorbidities, history of CHF, COPD and reported chest pain shortness of breath. The patient ruled out by [facility] high-sensitivity troponin protocol for ACS. It is likely that if the patient begins taking Lasix as prescribed his symptoms will improve markedly. In addition to this patient was able to ambulate here in the emergency department significant hypoxia despite showing signs of volume overload elevated BNP. He is now requiring patient admission at this time I think it is reasonable to have a trial of Lasix at home for the next 7 days with prompt PCP follow-up. Strict return precautions were discussed The patient and/or family, caregivers express understanding. The patient and/or family, caregivers agrees with the plan. Shared decision making: I will have a discussion with the patient and or visitors regarding risk/benefits of further testing or admission. They will be made aware of of the risk/benefits inherent in this decision they will be given the opportunity to voice understanding. Total critical care time today provided was at least 0 minutes. This excludes separately billable procedures. Critical care time (if documented) is secondary to the patient having high probability of clinically significant/life threatening deterioration in the patient's condition which required my urgent intervention. Impression: 1. CHF exacerbation 2. History of type 2 diabetes 3. Medication noncompliance Dispo: Discharge home This note was generated with [employer] dictation software. It may contain incorrect words, spelling, and punctuation that were not noted in review of the chart prior to signing. Lab Data Labs: Laboratory Results - last 24 hr 10/19/24 10/19/24 10/19/24 18:41 20:30 22:35 WBC 6.7 RBC 4.39 L Hgb 13.7 Hct 40.7 MCV 92.7 MCH 31.2 MCHC 33.7 RDW Std Deviation 43.1 RDW Coeff of Maycol 12.6 Plt Count 241 MPV 10.0 Immature Gran % (Auto) 0.100 Neut % (Auto) 65.7 Lymph % (Auto) 24.7 [place] % (Auto) 6.1 Eos % (Auto) 3.1 Baso % (Auto) 0.3 Absolute Neuts (auto) 4.4 Absolute Lymphs (auto) 1.65 Nucleated RBC % 0 Sodium 133 Potassium 5.5 H Chloride 98 Carbon Dioxide 22.6 Anion Gap 13 BUN 19 Creatinine 1.19 Estim Creat Clear Calc 66.79 Est GFR (MDRD) Non-Af 68 BUN/Creatinine Ratio 16.0 Glucose 343 H Calcium 9.2 Troponin T High Sens 25 H D Troponin T Hi Sens 2 Hr 27 H Troponin T Hi Sens 4Hr 26 H NT pro BNP II 4100 H Radiography Diagnostic Testing: Clinical Impression(s) from Imaging Studies Chest X-Ray 10/19/24 18:41 IMPRESSION: Mild cardiomegaly with findings of prior CABG. No evidence of acute cardiopulmonary disease. Reading Location: [facility] Discharge Plan Triage Chief Complaint: Chest Pain ED Provider: Valentín Miller Dx/Rx/DC Orders Clinical Impression: CHF exacerbation Instructions: Heart Failure Dc Prescriptions: New furosemide [Lasix] 40 mg tablet 40 mg PO DAILY 30 Days Qty: 30 0RF No Action (DME) Handicap placard See Rx Instructions .Route .MEDSUPPLY Qty: 1 0RF Rx Instructions: Due to COPD, unable to walk 50 yards without assistance, duration 5 years. (DME) pen needle, diabetic [Comfort EZ Pen [place]] 31 gauge x 5/16 needle See Rx Instructions .Route Qty: 100 3RF Rx Instructions: As directed clopidogrel 75 mg tablet 75 mg PO DAILY Qty: 90 3RF furosemide 40 mg tablet 40 mg PO DAILY Qty: 90 3RF nitroglycerin 0.4 mg tablet, sublingual 0.4 mg Sublingual Q5M PRN (Reason: Cardiac/Chest Pain) Qty: 25 1RF fluticasone propionate [Flonase Allergy Relief] 50 mcg/actuation spray,suspension 2 spray intranasal DAILY PRN (Reason: nasal congestion) Rx Instructions: administer into each nostril Humalog Mix 50-50 KwikPen 100 unit/mL (50-50) insulin pen 20 - 35 unit SC BID Patient Comments: pt based on sliding scale Rx Instructions: 9 pm: eat a meal, take 20 units insulin 1 am: eat a meal during work break 8 am: eat a meal take 20 units insulin albuterol sulfate 90 mcg/actuation HFA aerosol inhaler 2 puff inhalation Q4H PRN (Reason: shortness of breath or wheezing) insulin glargine [Lantus Solostar U-100 Insulin] 100 unit/mL (3 mL) insulin pen 20 unit subcut DAILY aspirin 81 mg Tablet,Chewable 81 mg PO BREAKFAST Qty: 0 0RF (DME) FreeStyle Test Strip See Rx Instructions .ROUTE .MEDSUPPLY Qty: 50 11RF Rx Instructions: check blood glucose daily (DME) blood-glucose meter [FreeStyle System Kit] Kit See Rx Instructions .ROUTE .MEDSUPPLY Qty: 1 0RF Rx Instructions: check blood glucose daily for type 2 DM (DME) lancets [FreeStyle Lancets] 28 gauge misc See Rx Instructions .ROUTE .MEDSUPPLY Qty: 50 11RF Rx Instructions: Check blood glucose daily for type 2 DM (DME) pen needle, diabetic [1st Tier Unifine Pentips Plus] 31 gauge x 3/16 needle See Rx Instructions .ROUTE .MEDSUPPLY Qty: 100 1RF Rx Instructions: use with lantus nightly Repatha SureClick 140 mg/mL pen injector 140 mg subcut Q2W Qty: 6 3RF omeprazole 20 mg capsule,delayed release(DR/EC) 20 mg PO DAILY Qty: 90 1RF Primary Care Provider: Ant Nuñez Referrals: Ant Nuñez, [Primary Care Provider] - Jose Garcia MD [Med Staff - Active Staff] - Activity Restrictions/Additional Instructions: Thank you for trusting us with your care today! Please take prescribed Lasix. Please return to the emergency department if your symptoms change or worsen. Specifically develop worsening chest pain, leg swelling or shortness of breath. Please follow with your primary care physician for further outpatient evaluation and management. Print Language: Irish Disposition Disposition: Home, Self Care
--- NOTE | 2024-10-19 18:41 | RAD_ITS ---
PROCEDURE: CHEST 1 VIEW (PORTABLE) 10/19/2024 REASON FOR EXAM: CHEST PAIN TECHNIQUE: Frontal view of the chest. COMPARISON: 09/18/2024 FINDINGS: Lungs/Pleura: Clear. No pneumothorax or sizable pleural effusion. No significant pulmonary vascular congestion or evidence of pulmonary edema. No focal consolidation. Heart/Mediastinum: Mild cardiomegaly. Evidence of prior CABG with sternotomy wires and multiple mediastinal surgical clips. Bones/Soft tissues: Degenerative changes of the spine. RAD/Chest 1 View (Portable) IMPRESSION: Mild cardiomegaly with findings of prior CABG. No evidence of acute cardiopulmonary disease. Reading Location: [id number]
[2024-10-19 18:55] LABS: Hematocrit 40.7 % (40-54); Hemoglobin 13.7 g/dL (13.0-16.5); Immature Granulocytes Count 0.010 X10^3/uL (0.0-0.0); Mean Corp Hgb Conc 33.7 g/dL (32-36); Mean Corpuscular Volume 92.7 fL (80-94); Mean Platelet Vol. 10.0 fl (6.2-12.0); NRBC Flagged by Analyzer 0 % (0-5); Platelet Count 241 K/mm3 (150-450); RBC Distribution Width CV 12.6 % (11.6-14.6); RBC Distribution Width SD 43.1 fl (35.1-43.9); Red Blood Count 4.39 M/mm3 (4.6-6.2); White Blood Count 6.7 K/mm3 (4.4-11.0)
[2024-10-19 19:15] LABS: Anion Gap 13 (5-15); BUN 19 mg/dL (4-19); BUN/Creat Ratio 16.0 RATIO (10-20); Calcium,Total 9.2 mg/dL (7.6-11.0); Carbon Dioxide 22.6 mmol/L (21.0-32.0); Chloride 98 mmol/L (98-108); Estimated Creatinine Clearance 66.79 ml/min (50-250); Glucose 343 mg/dL (70-99); Potassium 5.5 mmol/L (3.3-5.1); Pro- Brain NATRIURETIC PEPTIDE 4100 pg/mL (<=900); Troponin T High Sensitivity 25 ng/L (<=22)
[2024-10-19 21:02] LABS: Troponin T High Sens 2 HR 27 ng/L (<=22)
[2024-10-19 23:01] LABS: Troponin T High Sens 4 HR 26 ng/L (<=22)
== END 2024-10-19 23:29 | disposition home or self-care (01) ==
PROVIDERS: Emergency Provider Emergency Medicine; PCP Family Medicine; Visit Provider Emergency Medicine
DX: I11.0 Hypertensive heart disease with heart failure (principal); I50.9 Heart failure, unspecified; J44.9 Chronic obstructive pulmonary disease, unspecified; Z79.4 Long term (current) use of insulin; E11.9 Type 2 diabetes mellitus without complications; F17.200 Nicotine dependence, unspecified, uncomplicated; I25.10 Atherosclerotic heart disease of native coronary artery without angina pectoris; Z91.148 Patient's other noncompliance with medication regimen for other reason; E78.00 Pure hypercholesterolemia, unspecified; I25.2 Old myocardial infarction; Z79.82 Long term (current) use of aspirin; Z79.899 Other long term (current) drug therapy; Z79.51 Long term (current) use of inhaled steroids; Z79.02 Long term (current) use of antithrombotics/antiplatelets; Z95.1 Presence of aortocoronary bypass graft; R50.9 Fever, unspecified
CPT/HCPCS: 71045; 80048; 83880; 84484; 85025; 87631; 93005; 99283; A4216

== ENCOUNTER 2024-10-21 16:25 | Emergency (ER) | payer MEDICAID, SELFPAY ==
[2024-10-21 16:26] VITALS: BP 107/65; PULSE 95; RESP 16; TEMP 36.5; O2SAT 98; BMI 27.0
--- NOTE | 2024-10-21 16:38 | EX.ED.UPPERE ---
HPI History of Present Illness Chief Complaint: Upper Extremity Injury Detail of Chief Complaint: Right arm pain Informant: patient Narrative Narrative: Patient presents with pain to the right arm x 4 days. Patient was seen in the emergency department 4 days ago and had an attempted IV start in his right antecubital. Patient [id number]. Since that time he says some bruising and has pain with range of motion. Denies any numbness or tingling. Denies weakness of the extremity. Patient takes aspirin but no other anticoagulation. He did not have any IV fluid or medication through that area. [facility] Medical History GERD (gastroesophageal reflux disease) Anxiety High blood cholesterol Diabetes mellitus Emphysema, unspecified COPD (chronic obstructive pulmonary disease) Decreased left ventricular function Encounter for screening for malignant neoplasm of lung in current smoker with 30 pack year history or greater Stenosis of right carotid artery Insulin dependent diabetes mellitus History of non-ST elevation myocardial infarction (NSTEMI) (06/11/18) Emphysema lung Asthma Type 2 diabetes mellitus Arthritis Pancreatitis GERD (gastroesophageal reflux disease) Nicotine dependence Atherosclerosis of coronary artery of [place] heart without angina pectoris Hyperlipidemia Essential (primary) hypertension Home Medications ?Medication ?Instructions ?Recorded ?Last Taken ?Type blood sugar diagnostic (FreeStyle #50 ea 04/02/21 Unknown Rx Test strips) blood-glucose meter (FreeStyle #1 ea 04/02/21 Unknown Rx System Kit) lancets 28 gauge (FreeStyle #50 ea 04/02/21 Unknown Rx Lancets) pen needle, diabetic 31 gauge x #100 ea 04/02/21 Unknown Rx 3/ (1st Tier Unifine Pentips Plus) Handicap placard #1 ea 07/22/23 Unknown Rx pen needle, diabetic 31 gauge x #100 ea 10/28/23 Unknown Rx /16 (Comfort EZ Pen [place]) evolocumab 140 mg/mL subcutaneous 140 mg subcut Q2W cholesterol #6 mL 05/09/24 09/12/24 Rx pen injector (Wolf Bernal) albuterol sulfate 90 mcg/actuation 2 puff inhalation Q4H PRN 06/17/24 09/17/24 History aerosol inhaler shortness of breath or wheezing insulin glargine 100 unit/mL (3 20 unit subcut DAILY Diabetes 06/17/24 09/18/24 History mL) subcutaneous pen (Lantus Solostar U-100 Insulin) aspirin 81 mg chewable tablet 81 mg PO BREAKFAST preventative #0 06/20/24 09/18/24 Rx tabs omeprazole 20 mg capsule,delayed 20 mg PO DAILY reflux #90 caps 09/13/24 09/18/24 Rx release fluticasone propionate 50 2 spray intranasal DAILY PRN nasal 09/18/24 Unknown History mcg/actuation nasal congestion spray,suspension (Flonase Allergy Relief) insulin lispro protamine-lispro 20 - 35 unit subcut BID diabetes 09/18/24 09/17/24 History 100 unit/mL (50-50) subcutaneous pen (Humalog Mix 50-50 KwikPen) clopidogrel 75 mg tablet 75 mg PO DAILY #90 tabs 09/27/24 Unknown Rx furosemide 40 mg tablet 40 mg PO DAILY #90 tabs 09/27/24 Unknown Rx nitroglycerin 0.4 mg sublingual 0.4 mg sublingual Q5M PRN 09/27/24 Unknown Rx tablet Cardiac/Chest Pain #25 tabs furosemide 40 mg tablet (Lasix) 40 mg PO DAILY 30 days #30 tabs 10/19/24 Unknown Rx Allergy/AdvReac Type Severity Reaction Status Date / Time amoxicillin Allergy Angioedema Verified 10/21/24 16:26 lindane Allergy Rash Verified 10/21/24 16:26 Family History Father Asthma Alcoholism Arthritis Heart disease Hypertension High cholesterol CVA (cerebral vascular accident) Lung cancer Grandfather Myocardial infarction Surgical History S/P CABG x 4 History of hernia repair History of carotid endarterectomy (01/06/14) H/O coronary artery bypass surgery (2006) History of left heart catheterization (06/11/18) Social History Smoking Status: Heavy Smoker (>10/day) Tobacco: How many years used: 45 Electronic Cigarette Use: not used second hand exposure: Yes quit status: considering quitting alcohol intake: never substance use type: does not use caffeine: Yes Type: coffee Number of servings: 5 what type of physical activity do you participate in: none ROS ROS ED Review of Systems ROS Unobtainable: other Constitutional Constitutional ED: Reports lethargy; Denies chills, fever(s), sweats or weight loss Eyes Eyes: Denies blurry vision, change in vision or diplopia ENT ENT ED: Denies rhinorrhea or sore throat Cardiovascular Cardiovascular: Denies chest pain, orthopnea or racing heartbeat Respiratory/Chest Respiratory/Chest: Denies cough, dyspnea, dyspnea on exertion, orthopnea or sputum Gastrointestinal Gastrointestinal: Denies abdominal pain, diarrhea, nausea or vomiting Genitourinary Genitourinary ED: Denies dysuria, hematuria or urinary frequency Musculoskeletal Musculoskeletal: Reports other Details: Right arm pain/discoloration ; Denies arthralgias, back pain, myalgias or neck pain Integumentary Denies abscess, Abrasions or rash Neurologic Neurologic: Denies headache(s) or weakness Psychiatric Psychiatric: Denies anxiety, depression or suicidal thoughts Endocrine Endocrinology: Denies polydipsia, polyphagia or polyuria Hematologic/Lymphatic Hematologic/Lymphatic: Denies easy bleeding, easy bruising or lymphadenopathy Allergic/Immunologic Allergic/Immunologic ED: Denies mouth swelling, tongue swelling or urticaria EXAM Physical Exam Const Vital Signs: 10/21/24 16:26 Temperature 97.7 F L Temperature Source Oral Pulse Rate 95 Respiratory Rate 16 Blood Pressure 107/65 Blood Pressure Mean 79 Pulse Ox 98 Oxygen Delivery Method Room Air Positive well nourished and well developed General Appearance ED: well developed and NAD HEENT Reports TM's clear and moist mucous membranes normocephalic and atraumatic; Negative for trauma or tenderness Tympanic Membrane ED: Yes TM's clear Eyes PERRL and EOMs intact bilaterally General Eye ED: Negative for pale conjunctiva or scleral icterus Neck no lymphadenopathy, supple and no JVD General: Negative for tenderness Chest Wall inspection of chest normal and palpation of chest normal Chest: Negative for tenderness Resp normal respiratory effort and clear to auscultation bilaterally Effort and Inspection: Negative for respiratory distress or pain with movement Auscultation: Negative for rhonchi, wheezes or diminished lung sounds Cardio regular rate, regular rhythm, S1 normal heart sound, S2 normal heart sound and no murmurs Peripheral Pulses: pulses 2+ throughout GI normal to inspection, nondistended, normoactive bowel sounds, soft to palpation, non-tender, non-distended and no masses Back/Spine no CVA tenderness and no thoracic nor lumbar tenderness Extremity Extremity Narrative: Right arm-in the antecubital region there is an area of ecchymosis and bruising. Small hematoma noted centrally. No pulsatile masses palpated. He has normal range of motion flexion extension of all digits. Normal sensation. General Extremety ED: Negative for edema General Extremity: Negative for edema Neuro oriented x3, CN's II-XII intact bilaterally, no sensory deficits noted and gait normal Sensorium / Orientation: awake, alert, oriented to person, oriented to place and oriented to time Motor Exam: strength 5/5 throughout and strength abnormal Psych mental status grossly normal Skin no rashes or lesions noted and no wounds MDM MDM MDM Narrative Medical decision making narrative: Patient presents with a hematoma from IV attempts 4 days ago. Clinically looks well. I do not feel any further imaging or treatment is indicated. Recommended using warm compresses to the area. Recommended follow-up with his primary care physician within the next 5 to 7 days. Discharge Plan Triage Chief Complaint: Upper Extremity Injury ED Provider: Severo Zeng Dx/Rx/DC Orders Clinical Impression: Hematoma Instructions: ED Hematoma Prescriptions: No Action (DME) Handicap placard See Rx Instructions .Route .MEDSUPPLY Qty: 1 0RF Rx Instructions: Due to COPD, unable to walk 50 yards without assistance, duration 5 years. (DME) pen needle, diabetic [Comfort EZ Pen [place]] 31 gauge x 5/16 needle See Rx Instructions .Route Qty: 100 3RF Rx Instructions: As directed clopidogrel 75 mg tablet 75 mg PO DAILY Qty: 90 3RF furosemide 40 mg tablet 40 mg PO DAILY Qty: 90 3RF nitroglycerin 0.4 mg tablet, sublingual 0.4 mg Sublingual Q5M PRN (Reason: Cardiac/Chest Pain) Qty: 25 1RF fluticasone propionate [Flonase Allergy Relief] 50 mcg/actuation spray,suspension 2 spray intranasal DAILY PRN (Reason: nasal congestion) Rx Instructions: administer into each nostril Humalog Mix 50-50 KwikPen 100 unit/mL (50-50) insulin pen 20 - 35 unit SC BID Patient Comments: pt based on sliding scale Rx Instructions: 9 pm: eat a meal, take 20 units insulin 1 am: eat a meal during work break 8 am: eat a meal take 20 units insulin furosemide [Lasix] 40 mg tablet 40 mg PO DAILY 30 Days Qty: 30 0RF albuterol sulfate 90 mcg/actuation HFA aerosol inhaler 2 puff inhalation Q4H PRN (Reason: shortness of breath or wheezing) insulin glargine [Lantus Solostar U-100 Insulin] 100 unit/mL (3 mL) insulin pen 20 unit subcut DAILY aspirin 81 mg Tablet,Chewable 81 mg PO BREAKFAST Qty: 0 0RF (DME) FreeStyle Test Strip See Rx Instructions .ROUTE .MEDSUPPLY Qty: 50 11RF Rx Instructions: check blood glucose daily (DME) blood-glucose meter [FreeStyle System Kit] Kit See Rx Instructions .ROUTE .MEDSUPPLY Qty: 1 0RF Rx Instructions: check blood glucose daily for type 2 DM (DME) lancets [FreeStyle Lancets] 28 gauge misc See Rx Instructions .ROUTE .MEDSUPPLY Qty: 50 11RF Rx Instructions: Check blood glucose daily for type 2 DM (DME) pen needle, diabetic [1st Tier Unifine Pentips Plus] 31 gauge x 3/16 needle See Rx Instructions .ROUTE .MEDSUPPLY Qty: 100 1RF Rx Instructions: use with lantus nightly Repatha SureClick 140 mg/mL pen injector 140 mg subcut Q2W Qty: 6 3RF omeprazole 20 mg capsule,delayed release(DR/EC) 20 mg PO DAILY Qty: 90 1RF Primary Care Provider: Ant Nuñez Referrals: Ant Nuñez, DO [Primary Care Provider] - 5-7 Days Print Language: Lithuanian Disposition Disposition: Home, Self Care
[2024-10-21 16:52] VITALS: BP 108/62; PULSE 95; RESP 20; TEMP 36.8; O2SAT 99
== END 2024-10-21 16:54 | disposition home or self-care (01) ==
PROVIDERS: Emergency Provider Emergency Medicine; PCP Family Medicine; Visit Provider Emergency Medicine
DX: S50.11XA Contusion of right forearm, initial encounter (principal); J44.9 Chronic obstructive pulmonary disease, unspecified; E11.9 Type 2 diabetes mellitus without complications; Z79.4 Long term (current) use of insulin; I25.10 Atherosclerotic heart disease of native coronary artery without angina pectoris; E78.00 Pure hypercholesterolemia, unspecified; I10 Essential (primary) hypertension; Z79.82 Long term (current) use of aspirin; I25.2 Old myocardial infarction; K21.9 Gastro-esophageal reflux disease without esophagitis; Z79.51 Long term (current) use of inhaled steroids; F17.200 Nicotine dependence, unspecified, uncomplicated; Z95.1 Presence of aortocoronary bypass graft; Z79.899 Other long term (current) drug therapy; M79.601 Pain in right arm; X58.XXXA Exposure to other specified factors, initial encounter; Y92.238 Other place in hospital as the place of occurrence of the external cause
CPT/HCPCS: 99282

== ENCOUNTER 2024-10-23 17:53 | Emergency (ER) | payer MEDICAID, SELFPAY ==
[2024-10-23 17:54] VITALS: BP 113/69; PULSE 104; RESP 20; TEMP 36.6; O2SAT 97
[2024-10-23 17:55] VITALS: BP 113/69; PULSE 104; RESP 20; TEMP 36.6; O2SAT 97
--- NOTE | 2024-10-23 18:36 | EX.ED.DYSGE1 ---
HPI History of Present Illness Chief Complaint: Cellulitis Informant: patient Onset/Context/Timing Onset: Days Context: Gradual Onset Timing: Continuous Current Severity: Mild Maximum Severity: Mild Narrative Narrative: 64-year-old male history of insulin-dependent diabetes, hypertension, NE, COPD, CHF. Recent admission last several weeks for CHF. States has had swelling in his lower extremities but now the red, warm and painful. He said he had breaking of pustules and pus on his legs. He denies any fever or chills. Denies any chest pain or shortness of breath. Prior similar symptoms: No Recent Illness/Hospitalization: Yes [facility] Medical History GERD (gastroesophageal reflux disease) Anxiety High blood cholesterol Diabetes mellitus Emphysema, unspecified COPD (chronic obstructive pulmonary disease) Decreased left ventricular function Encounter for screening for malignant neoplasm of lung in current smoker with 30 pack year history or greater Stenosis of right carotid artery Insulin dependent diabetes mellitus History of non-ST elevation myocardial infarction (NSTEMI) (06/11/18) Emphysema lung Asthma Type 2 diabetes mellitus Arthritis Pancreatitis GERD (gastroesophageal reflux disease) Nicotine dependence Atherosclerosis of coronary artery of [place] heart without angina pectoris Hyperlipidemia Essential (primary) hypertension Home Medications ?Medication ?Instructions ?Recorded ?Last Taken ?Type blood sugar diagnostic (FreeStyle #50 ea 04/02/21 Unknown Rx Test strips) blood-glucose meter (FreeStyle #1 ea 04/02/21 Unknown Rx System Kit) lancets 28 gauge (FreeStyle #50 ea 04/02/21 Unknown Rx Lancets) pen needle, diabetic 31 gauge x #100 ea 04/02/21 Unknown Rx 3/16 (1st Tier Unifine Pentips Plus) Handicap placard #1 ea 07/22/23 Unknown Rx pen needle, diabetic 31 gauge x #100 ea 10/28/23 Unknown Rx 5/16 (Comfort EZ Pen [place]) evolocumab 140 mg/mL subcutaneous 140 mg subcut Q2W cholesterol #6 mL 05/09/24 09/12/24 Rx pen injector (Iana [place]) albuterol sulfate 90 mcg/actuation 2 puff inhalation Q4H PRN 06/17/24 09/17/24 History aerosol inhaler shortness of breath or wheezing insulin glargine 100 unit/mL (3 20 unit subcut DAILY Diabetes 06/17/24 09/18/24 History mL) subcutaneous pen (Lantus Solostar U-100 Insulin) aspirin 81 mg chewable tablet 81 mg PO BREAKFAST preventative #0 06/20/24 09/18/24 Rx tabs omeprazole 20 mg capsule,delayed 20 mg PO DAILY reflux #90 caps 09/13/24 09/18/24 Rx release fluticasone propionate 50 2 spray intranasal DAILY PRN nasal 09/18/24 Unknown History mcg/actuation nasal congestion spray,suspension (Flonase Allergy Relief) insulin lispro protamine-lispro 20 - 35 unit subcut BID diabetes 09/18/24 09/17/24 History 100 unit/mL (50-50) subcutaneous pen (Humalog Mix 50-50 KwikPen) clopidogrel 75 mg tablet 75 mg PO DAILY #90 tabs 09/27/24 Unknown Rx furosemide 40 mg tablet 40 mg PO DAILY #90 tabs 09/27/24 Unknown Rx nitroglycerin 0.4 mg sublingual 0.4 mg sublingual Q5M PRN 09/27/24 Unknown Rx tablet Cardiac/Chest Pain #25 tabs clindamycin HCl 300 mg capsule 300 mg PO Q8H 10 days #30 caps 10/23/24 Unknown Rx (Cleocin HCl) Allergy/AdvReac Type Severity Reaction Status Date / Time amoxicillin Allergy Angioedema Verified 10/23/24 17:55 lindane Allergy Rash Verified 10/23/24 17:55 Family History Father Asthma Alcoholism Arthritis Heart disease Hypertension High cholesterol CVA (cerebral vascular accident) Lung cancer Grandfather Myocardial infarction Surgical History S/P CABG x 4 History of hernia repair History of carotid endarterectomy (01/06/14) H/O coronary artery bypass surgery (2006) History of left heart catheterization (06/11/18) Social History Smoking Status: Light Smoker (<10/day) Tobacco: How many years used: 45 Electronic Cigarette Use: not used second hand exposure: Yes quit status: considering quitting alcohol intake: never substance use type: does not use caffeine: Yes Type: coffee Number of servings: 5 what type of physical activity do you participate in: none ROS ROS ED ROS Narrative Redness to his lower extremities. Swelling. Discomfort. Constitutional Constitutional ED: Denies chills or fever(s) Eyes Eyes: Denies blurry vision ENT ENT ED: Denies ear pain Cardiovascular Cardiovascular: Denies chest pain or palpitations Respiratory/Chest Respiratory/Chest: Denies cough or dyspnea Gastrointestinal Gastrointestinal: Denies abdominal pain Genitourinary Genitourinary ED: Denies dysuria or hematuria Musculoskeletal Musculoskeletal: Denies arthralgias, back pain or myalgias Integumentary Denies abscess or Abrasions Neurologic Neurologic: Denies headache(s) Psychiatric Psychiatric: Denies anxiety or depression Endocrine Endocrinology: Denies cold intolerance Hematologic/Lymphatic Hematologic/Lymphatic: Reports none Allergic/Immunologic Allergic/Immunologic ED: Denies mouth swelling, tongue swelling or urticaria EXAM Physical Exam Narrative Exam Narrative: Six 4-year-old male sitting upright in bed. Vital signs stable afebrile. No acute distress. Pulse ox 97% on room air no hypoxia H EENT exam pupils round react to light. Moist mutes members. No facial droop. Normal speech. Neck nontender no JVD. Lungs clear to auscultation bilaterally. Heart regular rhythm rate about 100 for 6 systolic ejection murmur. Chest wall ribs nontender. Abdomen soft nontender. Moving all 4 extremities. 2+ pitting edema both lower extremities. Both feet are swollen as of the lower legs he has 2+ pitting edema. He does have redness warmth and the are tender to palpation consistent with bilateral lower extremity cellulitis. He does have some broken vesicles on his legs. Dorsi plantarflexion intact. Neurologically is awake and alert. Answer question following commands. Const Vital Signs: 10/23/24 17:54 10/23/24 17:55 10/23/24 18:55 Temperature 97.8 F 97.8 F 97.8 F Temperature Source Temporal Oral Oral Pulse Rate 104 H 104 H 89 Respiratory Rate 20 H 20 H 18 Blood Pressure 113/69 113/69 113/64 Blood Pressure Mean 83 83 80 Pulse Ox 97 97 96 Oxygen Delivery Method Room Air Room Air Room Air 10/23/24 19:00 10/23/24 20:00 Temperature 97.8 F 97.8 F Temperature Source Oral Oral Pulse Rate 89 94 Respiratory Rate 18 18 Blood Pressure 113/64 103/73 Blood Pressure Mean 80 83 Pulse Ox 96 96 Oxygen Delivery Method Room Air Room Air Positive well nourished and well developed; Negative for cachectic, contractures or unkempt General Appearance ED: well developed and NAD; Negative for unkempt, cachectic, contractures, cyanotic, diaphoretic or pallor Nutritional Appearance: Negative for cachectic HEENT Reports moist mucous membranes Eyes PERRL and EOMs intact bilaterally General Eye ED: Negative for pale conjunctiva or scleral icterus Neck no lymphadenopathy, supple and no JVD Chest Wall inspection of chest normal and palpation of chest normal Resp normal respiratory effort and clear to auscultation bilaterally Cardio regular rate, regular rhythm, S1 normal heart sound and S2 normal heart sound; Negative for no murmurs GI normal to inspection, nondistended, normoactive bowel sounds, non-tender, non-distended and no masses Palpation: soft; Negative for tender, guarding or rebound tenderness present Back/Spine no CVA tenderness Extremity Negative for normal to inspection Extremity Narrative: Bilateral lower extremity cellulitis. Bilateral 2+ pitting edema. Bilateral tenderness. No lymphangitic streaking. No inguinal lymphadenopathy. Normal dorsi plantarflexion. No compartment. General Extremety ED: Yes edema and tenderness General Extremity: edema Neuro oriented x3 and CN's II-XII intact bilaterally Sensorium / Orientation: alert Motor Exam: strength 5/5 throughout Psych mental status grossly normal Appearance: Negative for unkempt Skin No no rashes or lesions noted, no wounds and skin turgor normal General Skin Exam: Negative for jaundice or pallor Rashes: rashes noted MDM MDM MDM Narrative Medical decision making narrative: 64-year-old male with cardiac history, insulin-dependent diabetes history of CHF. Presents with bilateral lower extremity redness, discomfort swelling consistent with cellulitis and peripheral edema most likely CHF. Screening labs will be obtained. He has a allergy to penicillin will be started on clindamycin for cellulitis. Most likely he will need to be admitted. Repeat exam patient is doing well at 8:32 PM legs are still swollen or not is red. They are currently not warm. He is comfortable being discharged to home. There is a young female here with him. He will be placed on clindamycin 3 times daily for 10 days. Outpatient follow-up this week with his primary care physician Dr. Rebel Nuñez. He knows to return if worse. He is already on a diuretic at home. History & Record Review Discussion w/independent historian: Patient Additional record(s) reviewed:: Prior inpatient record, Prior outpatient record, Prior ED visit and Prior labs Lab Data Attestation: I reviewed the patient's lab results. Lab results narrative: CBC shows a white count 6.9. H&H 14 and 42. Platelets 255. Chemistries show a gap of 12. Normal BUN and creatinine. Glucose 256. Labs: Laboratory Results - last 24 hr 10/23/24 18:02 WBC 6.9 RBC 4.55 L Hgb 14.0 Hct 42.4 MCV 93.2 MCH 30.8 MCHC 33.0 RDW Std Deviation 43.9 RDW Coeff of Maycol 12.8 Plt Count 255 MPV 10.0 Immature Gran % (Auto) 0.100 Neut % (Auto) 68.5 Lymph % (Auto) 21.6 [place] % (Auto) 6.1 Eos % (Auto) 3.4 Baso % (Auto) 0.3 Absolute Neuts (auto) 4.7 Absolute Lymphs (auto) 1.48 Nucleated RBC % 0 Sodium 138 Potassium 3.9 Chloride 100 Carbon Dioxide 26.0 Anion Gap 12 BUN 18 Creatinine 1.00 Estim Creat Clear Calc 89.11 Est GFR (MDRD) Non-Af 84 BUN/Creatinine Ratio 18.2 Glucose 256 H Calcium 9.3 Discharge Plan Triage Chief Complaint: Cellulitis ED Provider: Devin Curry Dx/Rx/DC Orders Clinical Impression: Edema, peripheral, Cellulitis, History of heart failure, History of diabetes mellitus Instructions: ED Cellulitis, ED Heart Failure, Congestive (CHF) Prescriptions: New clindamycin HCl [Cleocin HCl] 300 mg capsule 300 mg PO Q8H 10 Days Qty: 30 0RF No Action (DME) Handicap placard See Rx Instructions .Route .MEDSUPPLY Qty: 1 0RF Rx Instructions: Due to COPD, unable to walk 50 yards without assistance, duration 5 years. (DME) pen needle, diabetic [Comfort EZ Pen [place]] 31 gauge x 5/16 needle See Rx Instructions .Route Qty: 100 3RF Rx Instructions: As directed clopidogrel 75 mg tablet 75 mg PO DAILY Qty: 90 3RF furosemide 40 mg tablet 40 mg PO DAILY Qty: 90 3RF nitroglycerin 0.4 mg tablet, sublingual 0.4 mg Sublingual Q5M PRN (Reason: Cardiac/Chest Pain) Qty: 25 1RF fluticasone propionate [Flonase Allergy Relief] 50 mcg/actuation spray,suspension 2 spray intranasal DAILY PRN (Reason: nasal congestion) Rx Instructions: administer into each nostril Humalog Mix 50-50 KwikPen 100 unit/mL (50-50) insulin pen 20 - 35 unit SC BID Patient Comments: pt based on sliding scale Rx Instructions: 9 pm: eat a meal, take 20 units insulin 1 am: eat a meal during work break 8 am: eat a meal take 20 units insulin albuterol sulfate 90 mcg/actuation HFA aerosol inhaler 2 puff inhalation Q4H PRN (Reason: shortness of breath or wheezing) insulin glargine [Lantus Solostar U-100 Insulin] 100 unit/mL (3 mL) insulin pen 20 unit subcut DAILY aspirin 81 mg Tablet,Chewable 81 mg PO BREAKFAST Qty: 0 0RF (DME) FreeStyle Test Strip See Rx Instructions .ROUTE .MEDSUPPLY Qty: 50 11RF Rx Instructions: check blood glucose daily (DME) blood-glucose meter [FreeStyle System Kit] Kit See Rx Instructions .ROUTE .MEDSUPPLY Qty: 1 0RF Rx Instructions: check blood glucose daily for type 2 DM (DME) lancets [FreeStyle Lancets] 28 gauge misc See Rx Instructions .ROUTE .MEDSUPPLY Qty: 50 11RF Rx Instructions: Check blood glucose daily for type 2 DM (DME) pen needle, diabetic [1st Tier Unifine Pentips Plus] 31 gauge x 3/16 needle See Rx Instructions .ROUTE .MEDSUPPLY Qty: 100 1RF Rx Instructions: use with lantus nightly Repatha SureClick 140 mg/mL pen injector 140 mg subcut Q2W Qty: 6 3RF omeprazole 20 mg capsule,delayed release(DR/EC) 20 mg PO DAILY Qty: 90 1RF Primary Care Provider: Ant Nuñez Referrals: Ant Nuñez, DO [Primary Care Provider] - 3-5 Days Activity Restrictions/Additional Instructions: The antibiotic clindamycin 1 pill 3 times a day till gone. Take it with food on your stomach. This is to treat any possible infection in your leg. Continue your medication and makes you urinate a lot at home to decrease the swelling. Elevate your legs. Follow-up with your primary care physician for repeat evaluation later this week. Return if feeling worse. Print Language: Danish Disposition Disposition: Home, Self Care
--- OUTSIDE RECORDS SUMMARY | 2024-10-23 18:37 | XMS RPT_ITS | CCD ---
Author Organization [facility] Care Team Providers Care Parking Enforcement Manager Name Role Phone Unavailable Primary Care Provider [...] [phone] Galdino Baird Attending Provider Unavailable Abby HVAC DESIGN MECHANICAL ENGINEER, HVAC DESIGN MECHANICAL ENGINEER-C Kimberli Attending Provider [phone] Abby HVAC DESIGN MECHANICAL ENGINEER, HVAC DESIGN MECHANICAL ENGINEER-C Kimberli Referring Provider Dr. Xiang Rogers Primary Care Provider [phone] Dr. Xiang Rogers Attending Provider [phone] Dr. Xiang Rogers Referring Provider [phone] Dr. Maribell Moura Emergency Provider Elizabeth, Dr. Flori Jones Admit Provider Elizabeth, Dr. Flori Jones Other Provider Fraeed, Dr. Blackwood Other Provider Dr. Steve Fields Attending Provider Unavailable Diamond, Dr. Wilson Other Provider Unavailable Dr. Calos Quinn Attending Provider Roof HVAC DESIGN MECHANICAL ENGINEER, HVAC DESIGN MECHANICAL ENGINEER-C Dean Carson Attending Provider Xiang Rogers DO Primary Care Provider Dr. Xiang Rogers Primary Care Provider Dr. Xiang Rogers Attending Provider Dr. Xiang Rogers Referring Provider Roof HVAC DESIGN MECHANICAL ENGINEER, HVAC DESIGN MECHANICAL ENGINEER-C Dean Carson Attending Provider Dr. Xiang Rogers Primary Care Provider Dr. Xiang Rogers Referring Provider Dr. Xiang Rogers Attending Provider Dr. Xiang Rogers Primary Care Provider Dr. Xiang Rogers Referring Provider [facility] HVAC DESIGN MECHANICAL ENGINEER, HVAC DESIGN MECHANICAL ENGINEER-C Kimberli Attending Provider Xiang Rogers DO Primary Care Provider Dr. Xiang Rogers DO Primary Care Provider [phone] Dr. Xiang Rogers DO Referring Provider Lubna [...] Laurita WESTBROOK, Dr. Lyn Other Provider Jean HVAC DESIGN MECHANICAL ENGINEER-C, Dean Carson Other Provider Magaly Denise Other Provider Avery Jones Other Provider Bhaskar WESTBROOK, Dr. Triston Shoemaker Other Provider New WESTBROOK, Dr. Thompson Other Provider Zeb SANDRA, Dr. Ann Attending Provider Esteban DO, Dr. Wilson Attending Provider Unav cornell Mckeon MD, Dr. Horvath Attending Provider New WESTBROOK, Dr. Thompson Attending Provider Kai WESTBROOK, Dr. Live Attending Provider Zeb SANDRA, Dr. Ann Other Provider Lenny BELL-C, Ronit Attending Provider Dr. Lawson Castellon DO Attending Provider Dr. Lawson Castellon DO Emergency Provider Dr. Xiang Rogers DO Attending Provider Dr. Xiang Rogers DO Primary Care Provider Lubna Calhoun Attending Provider Uriel WESTBROOK, Dr. Jane Other Provider Dr. Xiang Rogers DO Referring Provider Dr. Clinton Soares DO Admit Provider [phone] Dr. Clinton Soares DO Attending Provider Dr. Xiang Rogers DO Primary Care Provider Dr. Saúl Aguilar DO Emergency Provider Dr. Clinton Soares DO Other Provider Dr. Xiang Rogers DO Primary Care Provider Lubna Calhoun Attending Provider Lubna Calhoun Referring Provider Lionel WESTBROOK, Dr. Hays Attending Provider Zeb SANDRA, Dr. Ann Other Provider New WESTBROOK, Dr. Thompson Attending Provider Kai WESTBROOK, Dr. Live Attending Provider Zeb SANDRA, Dr. Ann Attending Provider New WESTBROOK, Dr. Thompson Other Provider Magaly Denise Attending Provider Dr. Valentín Miller DO Emergency Provider Azucena DO, Dr. Elkins Emergency Provider Lawson Castellon Attending Unavailable Brown, Xiang R Primary Care Unavailable Alexandru Mckeon Attending Unavailabl e Brown, Xiang R Primary Care Unavailable Lionel, Saúl Consulting Unavailable Saúl Flowers Attending Unavailable Sultan, Saúl Referring Unavailable Brown, Xiang R Primary Care Unavailable Brown, Xiang R Primary Care Unavailable Calos Quinn Attending Unavailable Severo Zeng Attending Unavailable Brown, Xiang R Primary Care Unavailable Brown, Xiang R Primary Care Unavailable Saúl Aguilar Attending Unavailable Steve Esteban Admitting Unavailable Steve Esteban Consulting Unavailable Seth Carrington Attending Unavailable Brown, Xiang R Primary Care Unavailable Mary Kay Nagel Consulting Unavailable Mostfabiano Otilia Consulting Unavailable Fareed, Merced Consulting Unavailable George Ball Consulting Unavailable Kai Calos Consulting Unavailable Buck Trevino Consulting Unavailable Jose Garcia Consulting Unavailable Yuriy Mckeonaprbenedicto Consulting Unavailmague e Satti, Abisai Consulting Unavailable Laurita Riki Consulting Unavailable Jean HVAC DESIGN MECHANICAL ENGINEER, Dean Carson Consulting Unavailable Magaly Denise Consulting Unavail able Avery Valderrama Consulting Unavailable Triston Muro Consulting Unavailable Donna Wolff Consulting Unavailable Clinton Soares Consulting Unavailable Clinton Soares Admitting Unavailable Donna Wolff Attending Unavailable Brown, Xiang R Primary Care Unavailable Seth Carrington Consulting Unavailable Brown, Xiang R Attending Unavailable Brown, Xiang R Referring Unavailable Brown, Xiang R Primary Care Unavailable Valentín Miller Attending Unavailable Brown, Xiang R Primary Care Unavailable Manley, Lubna Attending Unavailable Manley, Lubna Referring Unavailable Brown, Xiang R Primary Care Unavailable Manley, Lubna Attending Unavailable Manley, Lubna Referring Unavailable Brown, Xiang R Primary Care Unavailable Galvez HVAC DESIGN MECHANICAL ENGINEER, Ronit Referring Unavailable Galvez HVAC DESIGN MECHANICAL ENGINEER, Ronit Attending Unavailable Brown, Xiang R Primary Care Unavailable Geovanny, Jose Referring Unavailable Geovanny, Jose Attending Unavailable Brown, Xiang R Primary Care Unavailable Galvez HVAC DESIGN MECHANICAL ENGINEER, Ronit Attending Unavailable Galvez HVAC DESIGN MECHANICAL ENGINEER, Ronit Referring Unavailable Brown, Xiang R Primary Care Unavailable Brown, Xiang R Primary Care Unavailable Abby, Kimberli Attending Unavailable Abby, Kimberli Referring Unavailable Brown, Xiang R Primary Care Unavailable Lionel, Saúl Attending Unavailable Brown, Xiang R Primary Care Unavailable Sultan, Saúl Attending Unavailable Lionel, Saúl Referring Unavailable Brown, Xiang R Referring Unavailable Manley, Lubna Attending Unavailable Brown, Xiang R Primary Care Unavailable Brown, Ixang R Referring Unavailable Brown, Xiang R Attending Unavailable Brown, Xiang R Primary Care Unavailable Brown, Xiang R Primary Care Unavailable Geovanny, Jose Referring Unavailable Sultan, Saúl Attending Unavailable Brown, Xiang R Referring Unavailable Lionel, Saúl Attending Unavailable Brown, Xiang R Primary Care Unavailable Steve Esteban Consulting Unavailable Steve Esteban Admitting Unavailable Calos Quinn Attending Unavailable Brown, Xinag R Primary Care Unavailable Mary Kay Nagel Consulting Unavailable Otilia Chaudhary Consulting Unavailable Merced Guerrier Consulting Unavailable George Ball Consulting Unavailable Kai, Calos Consulting Unavailable Buck Trevino Consulting Unavailable Jose Garcia Consulting Unavailable Alexandru Mckeon Consulting UnavailAibsai Marie Consulting Unavailable Riki Shay Consulting Unavailable Dean Pena NP Consulting Unavailable Magaly Denise Consulting Unavail able Avery Valderrama Consulting Unavailable Triston Muro Consulting Unavailable Donna Wolff Consulting Unavailable Seth Carrington Consulting Unavailable Seth Carrington Attending Unavailable Clinton Soares Consulting Unavailable Clinton Soares Admitting Unavailable Seth Carrington Attending Unavailable Brown, Xiang R Primary Care Unavailable Seth Carrington Consulting Unavailable Donna Wolff Attending Unavailable Donna Wolff Consulting Unavailable Clinton Soares Attending Unavailable Brown, Xiang R Referring Unavailable Brown, Xiang R Primary Care Unavailable Manley, Lubna Attending Unavailable Brown, Xiang R Referring Unavailable Manley, Lubna Attending Unavailable Brown, Xiang R Primary Care Unavailable Brown, Xiang R Attending Unavailable Brown, Xiang R Referring Unavailable Brown, Xiang R Primary Care Unavailable Brown, Xiang R Referring Unavailable Brown, Xiang R Primary Care Unavailable Brown, Xiang R Attending Unavailable Brown, Xiang R Referring Unavailable Magaly Denise Attending Unavail able Brown, Xiang R Primary Care Unavailable Brown, Xiang R Referring Unavailable Brown, Xiang R Primary Care Unavailable Manley, Lubna Attending Unavailable Brown, Xiang R Referring Unavailable Brown, Xiang R Primary Care Unavailable Magaly Denise Attending Unavail able Steve Esteban Attending Unavailable Alexandru Mckeon Attending Unavailabl e Magaly Denise Attending Unavail able Kai, Burns Consulting Unavailable Brown, Xiang R Primary Care Unavailable Donna Wolff Attending Unavailable Brown, Xiang R Referring Unavailable Lenny HVAC DESIGN MECHANICAL ENGINEER, Ronit Attending Unavailable Brown, Xiang R Primary Care Unavailable LionelSaúl Attending Unavailable Manley, Lubna Referring Unavailable Brown, Xiang R Primary Care Unavailable Sultan Saúl Attending Unavailable Manley, Lubna Referring Unavailable Brown, Xiang R Primary Care Unavailable Kai, Calos Attending Unavailable Brown, Xiang R Primary Care Unavailable Brown, Xiang R Primary Care Unavailable Kai, Calos Attending Unavailable Brown, Xiang R Referring Unavailable Lenny HVAC DESIGN MECHANICAL ENGINEER, Ronit Attending Unavailable Brown, Xiang R Primary Care Unavailable Brown, Xiang R Referring Unavailable Brown, Xiang R Primary Care Unavailable Manley, Lubna Attending Unavailable Brown, Xiang R Referring Unavailable Brown, Xiang R Attending Unavailable Brown, Xiang R Primary Care Unavailable Brown, Xiang R Referring Unavailable Manley, Lubna Attending Unavailable Brown, Xiang R Primary Care Unavailable Magaly Denise Referring Unavail able Magaly Denise Attending Unavail able Brown, Xiang R Primary Care Unavailable Brown, Xiang R Primary Care Unavailable Manley, Lubna Referring Unavailable Manley, Lubna Attending Unavailable Allergies Allergy Classification Reported Allergen(s) Allergy Type Date of Onset Reaction(s) Facility (8 sources) Etodolac; Translations: [ETODOLAC] Drug Allergy 03-12-2005 GI Upset [facility] (20 sources) Amoxicillin; Translations: [AMOXICILLIN] Drug Allergy 07-18-2021 Angioedema [facility] (20 sources) Lindane; Translations: [LINDANE] Drug Allergy 07-18-2021 Rash [facility] (1 source) Amoxicillin Drug Allergy 10-21-2024 [facility] (1 source) Lindane Drug Allergy 10-21-2024 [facility] (1 source) Unable to Assess Drug allergy (disorder) 06-17-2024 [facility] Medications Current Medications Medication Drug Class(es) Dates Sig (Normalized) Sig (Original) benzonatate 100 mg oral capsule (8 sources) Non-narcotic Antitussive Start: 12-31-2023 take 1 capsule by mouth every eight [...] System Kit) kit Active 0 .ROUTE .MEDSUPPLY April 02, 2021 9:46am check blood glucose daily for type 2 DM Start: 04-02-2021 Blood-Glucose Meter (Freestyle System Kit) kit Active 0 .ROUTE .MEDSUPPLY April 02, 2021 10:46am check blood glucose daily for type 2 DM Start: 09-05-2020 End: 04-02-2021 Blood-Glucose Meter (Freesty le System Kit) kit Discontinued 0 .ROUTE .MEDSUPPLY September 05, 2020 3:02pm April 02, 2021 9:48am check blood glucose daily for type 2 DM Start: 09-05-2020 End: 04-02-2021 Blood-Glucose Meter (Freesty le System Kit) kit Discontinued 0 .ROUTE .MEDSUPPLY September 05, 2020 4:02pm April 02, 2021 [...] 0 .ROUTE .MEDSUPPLY 1 June 10, 2019 12:00am September 05, 2020 3:02pm check blood glucose daily for type 2 DM Start: 06-10-2019 End: 09-05-2020 Blood-Glucose Meter (Freesty le System Kit) kit Discontinued 0 .ROUTE .MEDSUPPLY June 10, 2019 1:00am September 05, 2020 [...] Dx: Type 2 DM - Uncontrolled E11.65 DOCOSAHEXANOIC ACID/EPA (FISH OIL ORAL) (7 sources) DOCOSAHEXANOIC ACID/EPA (FISH OIL ORAL) Take by mouth. Active DOCOSAHEXANOIC A ANNA MARIE/EPA (FISH OIL ORAL) Take by mouth. 0 Active Comment on above: Take by mouth. 1 ml evolocumab 140 mg/ml au to-injector (20 sources) PCSK9 Inhibitor Start: 01-04-2024 End: 05-09-2024 Start: 07-28-2023 End: 11-03-2023 furosemide 40 mg oral tablet (15 sources) Loop Diuretic Start: 10-19-2024 Start: 06-20-2024 End: 09-27-2024 Handicap placard (1 source) Start: 07-22-2023 Handicap [...] 10 U SC DAILY May 20, 2019 1:00am January 24, 2020 3:00pm insulin NPH hum/reg insulin [...] 22 Units subc utaneously daily before dinner. Mometasone-Formotero l (Dulera) 100-5 mcg/actuation HFA aerosol inhaler (11 sources) Start: 06-17-2024 Mometasone-Formoterol (Dulera) 100-5 mcg/actuation HFA aerosol inhaler [...] affected area three times daily. Location: back Nirmatrelvir-Ritonav ir (Paxlovid (Eua)) 150 mg x 2- 100 mg tablet (1 source) Start: 07-18-2021 Nirmatrelvir-R itonavir (Paxlovid (Eua)) 150 mg x 2- 100 mg tablet Active 0 PO .COMPLEX July 18, 2021 11:59pm take TWO 150 mg tablets of nirmatrelvir with ONE 100 mg tablet of ritonavir twice daily for 5 days Completed/Discontinued Medications Medication Drug Class(es) Dates Sig (Normalized) Sig (Original) acetaminophen 325 mg / HYDROcodone bitartrate 5 mg oral tablet (20 sources) Opioid Agonist Start: 04-25-2023 End: 10-28-2023 [...] January 13, 2023 January 26, 2023 2:35pm [id number] 200 actuat albuter ol 0.09 mg/actuat metered dose inhaler (20 sources) beta2-Adrenergic Agonist Start: 06-28-2024 End: 09-18-2024 Start: 04-02-2021 take 1 puff(s) by in [...] hours as needed for Wheezing/Shortness of Breath. 24 hr alfuzosin hydrochlorid e 10 mg extended release oral tablet (20 sources) alpha-Adrenergic Jonatan Start: 08-19-2019 End: 09-27-2024 aspirin 81 mg chewable table t (20 sources) Platelet Aggregation Inhibitor, Nonsteroidal Anti-inflammatory Drug Start: 04-08-2017 End: 07-12-2024 aspirin 325 mg t ablet Take 81 mg by mouth once daily. Active take 1 tablet by mouth once jenny y aspirin 325 mg tablet Take 325 mg by mouth once daily. 0 Active Comment on above: Take 325 mg by mouth once daily. Take 81 mg by mouth once daily. atenolol 50 mg oral tablet (20 sources) beta-Adrenergic Jonatan Start: 06-12-2018 End: 09-21-2024 Comment on above: Take 50 mg by [...] DAY 10.2 November 01, 2021 8:08am Start: 04-02-2021 End: 11-01-2021 Start: 04-02-2021 End: 11-01-2021 Budesonide-Formoterol [...] 5 mg oral tablet (20 sources) Start: 06-11-2018 End: 09-21-2024 Start: 07-14-2017 End: 07-29-2017 Start: 07-14-2017 End: 07-29-2017 take 1 tablet by mouth three times daily Buspirone 5 MG tablet Discontinued 5 mg PO THREE TIMES A DAY July 14, 2017 12:00am July 29, 2017 12:41pm Comment on above: Take 5 mg by mouth t wice daily. cilostazol 50 mg oral tablet (20 sources) Phosphodiesterase 3 Inhibitor Start: 09-09-2023 End: 09-21-2024 ciprofloxacin 500 mg oral tablet (19 sources) Quinolone Antimicrobial Start: 08-12-2020 End: 09-05-2020 clindamycin 300 mg oral caps ule (9 sources) Lincosamide Antibacterial Start: 05-24-2023 End: 07-28-2023 clopidogrel 75 mg oral table t (20 sources) P2Y12 Platelet Inhibitor Start: 09-18-2024 End: 09-27-2024 Start: 04-20-2024 End: 09-09-2024 Start: 06-12-2018 End: 01-26-2023 Comment on above: Take 75 mg by mouth once daily. dapagliflozin 10 mg oral tab let (20 sources) Sodium-Glucose Cotransporter 2 Inhibitor Start: 04-24-2022 End: 10-19-2024 doxycycline monohydrate 100 mg oral tablet (20 sources) Tetracycline-class Drug Start: 06-20-2024 End: 07-12-2024 [...] Contrast as designated per enteric contrast guidelines ezetimibe 10 mg oral tablet (13 sources) Dietary Cholesterol Absorption Inhibitor Start: 06-17-2024 End: 09-27-2024 Start: 11-03-2023 End: 05-10-2024 famotidine 20 mg oral tablet (20 sources) Histamine-2 Receptor Antagonist Start: 08-19-2019 End: 06-13-2021 fenofibrate 134 mg oral capsule (20 sources) Peroxisome Proliferator Receptor alpha Agonist Start: 04-08-2017 End: 05-10-2024 Comment on above: Take 134 mg by mouth daily with breakfast. fluticasone propionate 0.05 mg/actuat metered dose nasal spray (18 sources) Corticosteroid Start: 05-21-2024 End: 09-18-2024 icosapent ethyl 1000 mg oral capsule (20 [...] U SC WITH DINNER August 11, 2018 9:26August 16, 2019 12:37pm Start: 08-11-2018 End: 08-16-2019 Insulin Nph And Regular Cheli n Discontinued 24 UNIT SC WITH DINNER August 11, 2018 8:26am August 16, 2019 11:37am Start: 08-11-2018 End: 08-16-2019 Insulin Nph And Regular Cheli n Discontinued 24 UNIT SC WITH DINNER August 11, 2018 9:August 16, 2019 12:37pm Start: 08-11-2018 End: 08-16-2019 Start: 08-11-2018 End: 08-16-2019 Insulin Nph And Regular Cheli n 100 unit/mL (70-30) insulin pen Discontinued 30 U SC WITH BREAKFAST August 11, 2018 9:August 16, 2019 12:37pm Start: 08-11-2018 End: 08-16-2019 Insulin Nph And Regular Cheli n Discontinued 30 UNIT SC WITH BREAKFAST August 11, 2018 8:26August 16, 2019 11:37am Start: 08-11-2018 End: 08-16-2019 Insulin Nph And Regular Cheli n Discontinued 30 UNIT SC WITH BREAKFAST August 11, 2018 9:26August 16, 2019 12:37pm Start: 06-11-2018 End: 08-11-2018 [...] Before Breakfast. 3 ml insulin lispro 50 unt/ml / insulin lispro protamine, human 50 unt/ml pen injector (20 sources) Insulin Analog Start: 07-22-2023 Insulin Lispro Protamin-Lispro (Humalog Mix 50-50 Kwikpen) 100 unit/mL (50-50) insulin pen Active 20 U SC TWICE A DAY July 22, 2023 12:20pm 9 pm: eat a meal, take 20 units insulin 1 am: eat a meal during work break 8 am: eat a meal take 20 units insulin Start: 01-13-2023 End: 09-18-2024 Start: 01-13-2023 End: 07-22-2023 Insulin Lispro Protamin-Lisp [...] (20 sources) Nitrate Vasodilator Start: 06-12-2018 End: 09-21-2024 Comment on above: Take 30 mg by mouth once daily. lidocaine 0.05 mg/mg medicat ed patch (19 sources) Antiarrhythmic, Amide Local Anesthetic Start: 07-05-2020 End: 07-08-2020 Start: 07-05-2020 End: 07-08-2020 Lidocaine 1 PATCH patch Disc ontinued 1 NMA TOPICAL DAILY 3 3 July 05, 2020 12:00am July 07, 2020 12:00am July 08, 2020 12:03am Apply for up to 12 hours/day to the affected area Start: 07-05-2020 End: 07-08-2020 Lidocaine Discontinued 1 PAT CH TOPICAL DAILY 3 July 04, 2020 11:00pm July 07, 2020 11:03pm Apply for up to 12 hours/day to the affected area losartan potassium 25 mg ora l tablet (20 sources) Angiotensin 2 Receptor Jonatan Start: 06-17-2024 End: 09-21-2024 Start: 06-12-2018 End: 05-10-2024 Start: 07-14-2017 End: 06-12-2018 Start: 02-07-2017 End: 07-14-2017 Comment on above: Take 50 mg by mouth once daily. metFORMIN hydrochloride 1000 mg oral tablet (20 sources) Biguanide Start: 05-20-2019 End: 09-21-2024 Start: 11-04-2018 End: 05-20-2019 24 hr metoprolol succinate 2 5 mg extended release oral tablet (20 sources) beta-Adrenergic Jonatan Start: 06-20-2024 End: 09-18-2024 Start: 07-14-2013 End: 07-28-2017 24 hr nicotine 0.875 mg/hr transdermal system (20 sources) Cholinergic Nicotinic Agonist Start: 06-20-2024 End: 09-21-2024 Start: 06-12-2018 End: 08-10-2018 Start: 06-12-2018 End: [...] as dir ected every 24 hours. Nirmatrelvir-Ritonavir (18 sources) Start: 07-18-2021 End: 09-18-2021 Start: 07-18-2021 [...] (20 sources) Nitrate Vasodilator Start: 06-12-2018 End: 09-27-2024 Comment on above: Dissolve 0.4 mg unde r the tongue every 5 minutes as needed. [place]-3 Fatty Acids-Fish Oil (12 sources) Start: 07-10-2017 End: 07-28-2017 [place]-3 Fatty Acids-Fish Oil Discontinued 2 EACH PO DAILY July 10, 2017 3:35pm July 28, 2017 1:36pm Start: 07-10-2017 End: 07-28-2017 [place]-3 Fatty Acids-Fish Oil Discontinued 2 EACH PO DAILY July 09, 2017 11:00pm July 28, 2017 12:36pm Start: 07-10-2017 End: 07-28-2017 [place]-3 Fatty Acids-Fish Oil Discontinued 2 EACH PO DAILY July 10, 2017 12:00am July 28, 2017 1:36pm [place]-3 Fatty Acids-Fish Oil 1 EACH capsule (1 source) Start: 07-10-2017 End: 07-28-2017 [place]-3 Fatty Acids-Fish Oil 1 EACH capsule Discontinued 2 NMA PO DAILY July 10, 2017 12:00am July 28, 2017 1:36pm omeprazole 20 mg delayed release oral capsule (20 sources) Proton Pump Inhibitor Start: 01-01-2022 End: 09-13-2024 Start: 07-10-2017 End: 07-14-2017 ondansetron 4 mg disintegrating oral tablet (19 sources) Serotonin-3 Receptor Antagonist Start: 08-23-2023 End: 09-21-2024 pantoprazole 40 mg delayed release oral tablet [...] phenazopyridine hydrochlorid e 100 mg oral tablet (19 sources) Start: 06-01-2019 End: 01-24-2020 predniSONE 20 [...] Comment on above: Take 2 tablets by mo [facility] once daily. simvastatin 40 mg oral table t (20 sources) HMG-CoA Reductase Inhibitor Start: 12-01-2016 End: 06-12-2018 SITagliptin 50 mg oral table t (19 sources) Dipeptidyl Peptidase 4 Inhibitor Start: 07-14-2017 End: 07-28-2017 spironolactone 25 mg oral ta blet (6 sources) Aldosterone Antagonist Start: 06-20-2024 End: 09-21-2024 sulfamethoxazole 800 mg / trimethoprim 160 mg oral tablet (19 sources) Dihydrofolate Reductase Inhibitor Antibacterial, Sulfonamide Antimicrobial Start: 01-16-2020 End: 01-24-2020 Start: 01-16-2020 End: 01-24-2020 Sulfamethoxazole-Trimethopri m 1 EACH tablet Discontinued 1 NMA PO TWICE A DAY January 16, 2020 12:00am January 24, 2020 1:34pm Start: 01-16-2020 End: 01-24-2020 Sulfamethoxazole-Trimethopri m Discontinued 1 EACH PO TWICE A DAY January 15, 2020 11:00pm January 24, 2020 12:34pm triamcinolone acetonide 5 mg /ml topical cream (18 sources) Corticosteroid Start: 01-13-2023 End: 01-26-2023 Start: 03-05-2017 triamcinolone acetonide (KENALOG) 0.1 % cream Indications: Rash Apply 1 application to affected area three times daily. Apply sparingly to area for rash/itching. 30 g 03/05/2017 Active Comment on above: Apply 1 application to affected area three times daily. Apply sparingly to area for rash/itching. Varenicline Tartrate (19 sources) Partial Cholinergic Nicotinic Agonist Start: End: 02-08-2020 Start: 05-20-2019 End: 02-08-2020 take 1 tablet by mouth once Varenicline Tartrate ([place] tix Starting Month Box) 0.5 mg (11)- 1 mg (42) tablets,dose pack Discontinued 0 PO per package directions 53 May 20, 2019 1:00am February 08, 2020 2:56pm PO PER PKG DIR (20 sources) Start: 06-18-2024 End: 10-19-2024 Start: 06-18-2024 Start: 06-17-2024 End: 07-12-2024 Start: 10-28-2023 Start: 07-22-2023 Start: 02-18-2023 End: 06-17-2024 Start: 08-14-2022 End: 02-18-2023 Start: 04-02-2021 Start: 04-02-2021 Start: 04-02-2021 Start: 04-02-2021 Start: 09-05-2020 End: 04-02-2021 Start: 08-06-2020 End: 04-02-2021 Start: 06-10-2019 End: 09-05-2020 Start: 06-10-2019 End: 04-02-2021 Start: 06-01-2019 End: 08-06-2020 Start: 07-14-2017 End: 07-29-2017 Start: 07-10-2017 End: 07-28-2017 Problems Active Problems Problem Classification Problem Date Documented Da te Episodic/Chronic Abdominal pain (20 sources) Generalized abdominal pain; Translations: [Generalized abdominal pain] Onset: 01-28-2022 Episodic Acute bronchitis (19 sources) Acute bronchitis with bronchospasm; Translations: [Acute bronchitis, unspecified] 04-13-2019 Episodic Acute myocardial infarction (20 sources) Myocardial infarction; Translations: [Non-ST elevation (NSTEMI) myocardial infarction] Chronic Chronic kidney disease (1 source) Dependence on renal dialysis; Translations: [Dependence on renal dialysis] Onset: 06-21-2024 Chronic Chronic obstructive pulmonary disease and bronchiectasis (20 sources) Pulmonary emphysema; Translations: [Emphysema, unspecified] Onset: 06-24-2024 Chronic Chronic obstructive pulmonary disease and bronchiectasis (20 sources) Bronchitis; Translations: [Bronchitis, not specified as acute or chronic] 2020 Episodic Congestive heart failure; nonhypertensive (20 sources) Congestive heart failure; Translations: [Heart failure, [...] [Insulin dependent diabetes mellitus] Onset: 06-24-2024 Chronic Disorders of lipid metabolism (20 sources) Pure hypercholesterolemia ; Translations: [Pure hypercholesterolemia , unspecified] Onset: 10-09-2015 10-09-2015 Chronic E Codes: Fall (10 sources) Fall; Translations: [Unspecified fall, initial encounter] 04-25-2023 Episodic Essential hypertension (20 sources) Essential hypertension; Translations: [Essential (primary) hypertension] Onset: 06-20-2024 Chronic Fluid and electrolyte disorders (19 sources) Hyponatremia; Translations: [Hypo-osmolality and hyponatremia] 07-06-2020 Episodic Headache; including migraine (19 sources) Headache; Translations: [Headache] 08-13-2020 Episodic Heart valve disorders (16 sources) Aortic valve stenosis; Translations: [Nonrheumatic aortic (valve) stenosis] Onset: 10-18-2024 07-12-2024 Chronic Hypertension with complications and secondary hypertension (1 source) Hypertensive heart disease with heart failure; Translations: [Hypertensive heart disease with heart failure] Onset: 10-14-2024 Chronic Nonspecific chest pain (18 sources) Chest discomfort; Translations: [Other chest pain] Onset: 08-02-2024 06-27-2024 Episodic Occlusion or stenosis of precerebral arteries (20 sources) Right carotid artery stenosis; Translations: [Occlusion and stenosis of right carotid artery] Onset: 10-18-2024 Chronic Open wounds of extremities (1 source) Unspecified open wound of right great toe without damage to nail, initial encounter; Translations: [Unspecified open wound of right great toe without damage to nail, initial encounter] Onset: 09-29-2024 Episodic Other aftercare (7 sources) Surgical follow-up; Translations: [Encounter for surgical aftercare following surgery on the circulatory system] 05-17-2024 Episodic Other aftercare (2 sources) 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; Translations: [assisted (current) use of insulin] Onset: 06-24-2024 Episodic Other and ill-defined heart disease (7 sources) Impaired left ventricular function; Translations: [Heart disease, unspecified] 05-10-2024 Chronic Other and ill-defined heart disease (19 sources) Left ventricular cardiac dysfunction; Translations: [Heart disease, unspecified] 06-27-2024 Chronic Other and ill-defined heart disease (2 sources) Heart disease, unspecified; Translations: [Heart disease, unspecified] Onset: 09-27-2024 Chronic Other circulatory disease (7 sources) Disorder of carotid artery; Translations: [Disorder of arteries and arterioles, unspecified] 09-09-2023 Chronic Other circulatory disease (1 source) Disorder of arteries and arterioles, unspecified; Translations: [Disorder of arteries and arterioles, unspecified] Onset: 09-12-2024 Chronic Other circulatory disease (1 source) Other specified peripheral vascular diseases; Translations: [Other specified peripheral vascular diseases] Onset: 06-03-2024 Chronic Other connective tissue disease (7 sources) Pain in left lower limb; Translations: [Pain in left leg] 10-28-2023 Episodic Other connective tissue disease (1 source) Pain in left leg; Translations: [Pain in left leg] Onset: 09-29-2024 Episodic Other ear and sense organ disorders (11 sources) Eczema of external auditory canal; Translations: [Acute eczematoid otitis externa, bilateral] 10-09-2022 Episodic Other hematologic conditions (19 sources) High troponin I level; Translations: [Other specified abnormalities of plasma proteins] 06-14-2018 Episodic Other injuries and conditions due to external causes (10 sources) Abrasion; Translations: [Other injury of unspecified body region, initial encounter] 04-25-2023 Episodic Other injuries and conditions due to external causes (1 source) Hematoma; Translations: [Other injury of unspecified body region, initial encounter] 10-21-2024 Episodic Other liver diseases (19 sources) Steatosis of liver; Translations: [Fatty (change of) liver, not elsewhere classified] 06-14-2018 Chronic Other lower respiratory disease (10 sources) Pulmonary edema; Translations: [Chronic pulmonary edema] 06-27-2024 Chronic Other lower respiratory disease (7 sources) Dyspnea on exertion; Translations: [Other forms of dyspnea] 05-10-2024 Episodic Other lower respiratory disease (6 sources) Respiratory insufficiency; Translations: [Other abnormalities of breathing] 06-27-2024 Episodic Other lower respiratory disease (6 sources) Hypoxia; Translations: [Hypoxemia] 06-27-2024 Episodic Other lower respiratory disease (10 sources) Acute respiratory distress; Translations: [Acute respiratory distress] 06-27-2024 Episodic Other nutritional; endocrine; and metabolic disorders (19 sources) Hypocalcemia; Translations: [Hypocalcemia] 06-17-2021 Chronic Other nutritional; endocrine; and metabolic disorders (10 sources) Body mass index 25-29 - overweight; Translations: [Overweight] 06-27-2024 Episodic Other skin disorders (11 sources) Lesion of skin of foot; Translations: [Changes in skin texture] 02-24-2024 Episodic Other skin disorders (1 source) Changes in skin texture; Translations: [Changes in skin texture] Onset: 09-29-2024 Episodic Other upper respiratory infections (1 source) Chronic sinusitis; Translations: [Chronic sinusitis, unspecified] 12-31-2023 Chronic Other upper respiratory infections (20 sources) Upper respiratory infection; Translations: [Acute upper respiratory infection, unspecified] Episodic Minda-; endo-; and myocarditis; cardiomyopathy (except that caused by tuberculosis or sexually transmitted disease) (6 sources) Cardiomyopathy; Translations: [Cardiomyopathy, unspecified] 08-06-2024 Chronic Peripheral and visceral atherosclerosis (20 sources) Intermittent claudication; Translations: [Peripheral vascular disease, unspecified] Onset: 05-05-2024 09-10-2023 Chronic Comment on above: LEAS Residual codes; unclassified (19 sources) Noncompliance with medication regimen; Translations: [Patient's other noncompliance with medication regimen] 06-14-2018 Episodic Skin and subcutaneous tissue infections (20 sources) Cellulitis; Translations: [Cellulitis, unspecified] 03-09-2022 Episodic Spondylosis; intervertebral disc disorders; other back problems (19 sources) Backache; Translations: [Dorsalgia, unspecified] 07-06-2020 Episodic Substance-related disorders (20 sources) Nicotine dependence; Translations: [Nicotine dependence, unspecified, uncomplicated] Onset: 10-18-2024 Chronic Superficial injury; contusion (20 sources) Contusion of foot; Translations: [Contusion of [...] site not specified] 08-13-2020 Episodic Viral infection (20 sources) Disease caused by 2019-nCoV; Translations: [COVID-19] 07-18-2021 Episodic Past or Other Problems Problem Classification Problem Date Documented Date Episodic/Chronic Abdominal hernia (15 sources) Umbilical hernia; Translations: [Umbilical hernia without obstruction or gangrene] Onset: 01-05-2017 01-05-2017 Episodic Diabetes mellitus without complication (20 sources) Hyperglycemia; Translations: [Hyperglycemia, unspecified] Onset: 06-24-2024 07-06-2020 Episodic Heart valve disorders (9 sources) Heart murmur; Translations: [Cardiac murmur, unspecified] Onset: 07-02-2024 04-01-2024 Episodic Other aftercare (1 source) Encounter for surgical aftercare following surgery on the circulatory system; Translations: [Encounter for surgical aftercare following surgery on the circulatory system] Onset: 06-23-2024 Episodic Other lower respiratory disease (1 source) [...] neoplasm of respiratory organs] Onset: 06-24-2024 Episodic Pleurisy; pneumothorax; pulmonary collapse (12 sources) Bilateral pleural effusion; Translations: [Pleural effusion, not elsewhere classified] Onset: 06-24-2024 06-27-2024 Episodic Respiratory failure; insufficiency; arrest (adult) (12 sources) Acute hypoxemic respiratory failure; Translations: [Acute respiratory failure with hypoxia] Onset: 06-24-2024 06-27-2024 Episodic Screening and history of mental health and substance abuse codes (1 source) Personal history of nicotine dependence; Translations: [Personal history of nicotine dependence] Onset: 06-06-2024 Episodic Results Test Name Value Interpretation Reference Range Facility Emergency Department Summary on 10-21-2024 Emergency Department Summary Normal [facility] Absolute lymphocyte countOrd ered By: Valentín Miller on 10-19-2024 Lymphocytes Auto (Unsp spec) [#/Vol] 1.65 10*3/uL 0.83-4.51 [facility] Anion gap in Serum or Plasma Ordered By: Valentín Miller on 10-19-2024 Anion gap [Moles/Vol] 13 mmol/L - [facility] Automated lymphocyte count a s percentage of total leukocytesOrdered By: Valentín Miller on 10-19-2024 Lymphocytes/100 WBC Auto (Unsp spec) 24.7 % - [facility] BUN/creatinine ratioOrdered By: Valentín Miller on 10-19-2024 Urea nitrogen/Creatinine [Mass ratio] 16.0 mg/mg - [facility] Basic Metabolic Profile (BMP )on 10-19-2024 BUN/CRE 16.0 RATIO Normal - [facility] Comment on above: Performed By: #### L 503.7505, L501.4021, L100.0100, L500.2500 ####[facility] [address] [place], [address] Calcium [Mass/Vol] 9.2 mg/dL Normal 7.6-11.0 [facility] Comment on above: Performed By: #### L 503.7505, L501.4021, L100.0100, L500.2500 ####[facility] [address] [place], [address] Chloride [Moles/Vol] 98 mmol/L Normal 98-108 [facility] Comment on above: Performed By: #### L 503.7505, L501.4021, L100.0100, L500.2500 ####[facility] [address] [place], [address] CO2 [Moles/Vol] 22.6 mmol/L Normal 21.0-32.0 [facility] Comment on above: Performed By: #### L 503.7505, L501.4021, L100.0100, L500.2500 ####[facility] [address] [place], [address] Creatinine [Mass/Vol] 1.19 mg/dL Normal 0.70-1.20 [facility] Comment on above: Performed By: #### L 503.7505, L501.4021, L100.0100, L500.2500 ####[facility] [address] [place], [address] ECRCL 66.79 ml/min Normal 50-250 [facility] Comment on above: Performed By: #### L 503.7505, L501.4021, L100.0100, L500.2500 ####[facility] [address] [place], [address] GAP 13 Normal 5-15 [facility] Comment on above: Performed By: #### L 503.7505, L501.4021, L100.0100, L500.2500 ####[facility] [address] [place], [address] GFR/1.73 sq M.predicted among non-blacks MDRD (S/P/Bld) [Vol rate/Area] 68 mL/min/{1.73_m2} Normal >60 [facility] Comment on above: Result Comment: mL/m in/1.73m2 CKD-EPI Creatinine Equation (2020) Performed By: #### L 503.7505, L501.4021, L100.0100, L500.2500 ####[facility] [address] [place], [address] Glucose [Mass/Vol] 343 mg/dL High 70-99 [facility] Comment on above: Performed By: #### L 503.7505, L501.4021, L100.0100, L500.2500 ####[facility] [address] [place], [address] Potassium [Moles/Vol] 5.5 mmol/L High 3.3-5.1 [facility] Comment on above: Result Comment: Hemo lysis present, Results??could be affected.??Hemolysis present, Results??could be affected.?? Performed By: #### L 503.7505, L501.4021, L100.0100, L500.2500 ####[facility] [address] [place], [address] Sodium [Moles/Vol] 133 mmol/L Normal 133-145 [facility] Comment on above: Performed By: #### L 503.7505, L501.4021, L100.0100, L500.2500 ####[facility] [address] [place], [address] Urea nitrogen [Mass/Vol] 19 mg/dL Normal 4-19 [facility] Comment on above: Performed By: #### L 503.7505, L501.4021, L100.0100, L500.2500 ####[facility] [address] [place], [address] Basophil percentageOrdered B y: Valentín Paul on 10-19-2024 Basophils/100 WBC (Bld) 0.3 % 0-[address] [facility] CBC W/Diff, Automatedon 10-04 Absolute Lymph 1.65 X10 3/uL Normal 0.83-4.51 [facility] Comment on above: Performed By: #### L 503.7505, L501.4021, L100.0100, L500.2500 ####[facility] [address] [place], [address] Absolute Neut 4.4 X10 3/uL Normal 2.0-7.7 [facility] Comment on above: Performed By: #### L 503.7505, L501.4021, L100.0100, L500.2500 ####[facility] [address] [place], [address] Basophils/100 WBC (Bld) 0.3 % Normal 0-[address] [facility] Comment on above: Performed By: #### L 503.7505, L501.4021, L100.0100, L500.2500 ####[facility] [address] [place], [address] Eosinophils/100 WBC (Bld) 3.1 % Normal 0-5 [facility] Comment on above: Performed By: #### L 503.7505, L501.4021, L100.0100, L500.2500 ####[facility] [address] [place], [address] Erythrocyte distribution width (RBC) [Ratio] 12.6 % Normal 11.6-14.6 [facility] Comment on above: Performed By: #### L 503.7505, L501.4021, L100.0100, L500.2500 ####[facility] [address] [place], [address] Hematocrit (Bld) [Volume fraction] 40.7 % Normal 40-54 [facility] Comment on above: Performed By: #### L 503.7505, L501.4021, L100.0100, L500.2500 ####[facility] [address] [place], [address] Hemoglobin (Bld) [Mass/Vol] 13.7 g/dL Normal 13.0-16.5 [facility] Comment on above: Performed By: #### L 503.7505, L501.4021, L100.0100, L500.2500 ####[facility] [address] [place], [address] IG% 0.100 Normal 0.0-0.9 [facility] Comment on above: Result Comment: IG% - Immature Granulocytes (promyelocytes, myelocytes andmetamyelocytes) > 1% indicates that a LEFT SHIFT is Present. Performed By: #### L 503.7505, L501.4021, L100.0100, L500.2500 ####[facility] [address] [place], [address] Lymphocytes/100 WBC (Bld) 24.7 % Normal 19-41 [facility] Comment on above: Performed By: #### L 503.7505, L501.4021, L100.0100, L500.2500 ####[facility] [address] [place], [address] MCH (RBC) [Entitic mass] 31.2 pg Normal 27.0-32.0 [facility] Comment on above: Performed By: #### L 503.7505, L501.4021, L100.0100, L500.2500 ####[facility] [address] [place], [address] MCHC (RBC) [Mass/Vol] 33.7 g/dL Normal 32-36 [facility] Comment on above: Performed By: #### L 503.7505, L501.4021, L100.0100, L500.2500 ####[facility] [address] [place], [address] MCV (RBC) [Entitic vol] 92.7 fL Normal 80-94 [facility] Comment on above: Performed By: #### L 503.7505, L501.4021, L100.0100, L500.2500 ####[facility] [address] [place], [address] Monocytes/100 WBC (Bld) 6.1 % Normal 0-[address] [facility] Comment on above: Performed By: #### L 503.7505, L501.4021, L100.0100, L500.2500 ####[facility] [address] [place], [address] Neutrophils/100 WBC (Bld) 65.7 % Normal 47-70 [facility] Comment on above: Performed By: #### L 503.7505, L501.4021, L100.0100, L500.2500 ####[facility] [address] [place], [address] Nucleated RBC (Bld) [#/Vol] 0 10*3/uL Normal 0-5 [facility] Comment on above: Performed By: #### L 503.7505, L501.4021, L100.0100, L500.2500 ####[facility] [address] [place], [address] Platelet mean volume (Bld) [Entitic vol] 10.0 fL Normal 6.2-12.0 [facility] Comment on above: Performed By: #### L 503.7505, L501.4021, L100.0100, L500.2500 ####[facility] [address] [place], [address] Platelets (Bld) [#/Vol] 241 10*3/uL Normal 150-450 [facility] Comment on above: Performed By: #### L 503.7505, L501.4021, L100.0100, L500.2500 ####[facility] [address] [place], [address] RBC (Bld) [#/Vol] 4.39 10*6/uL Low 4.6-6.2 [facility] Comment on above: Performed By: #### L 503.7505, L501.4021, L100.0100, L500.2500 ####[facility] [address] [place], [address] RDW SD 43.1 fl Normal 35.1-43.9 [facility] Comment on above: Performed By: #### L 503.7505, L501.4021, L100.0100, L500.2500 ####[facility] [address] [place], [address] WBC (Bld) [#/Vol] 6.7 10*3/uL Normal 4.4-11.0 [facility] Comment on above: Performed By: #### L 503.7505, L501.4021, L100.0100, L500.2500 ####[facility] [address] [place], [address] Carbon dioxide, total [Moles /volume] in Central venous bloodOrdered By: Valentín Miller on 10-19-2024 CO2 [Moles/Vol] 22.6 mmol/L 21.0-32.0 [facility] Chest 1 View (Portable)on Chest 1 View (Portable) Normal [facility] Chloride assayOrdered By: Ana Miller on 10-19-2024 Chloride [Moles/Vol] 98 mmol/L 98-108 [facility] Emergency Department Summary on 10-19-2024 Emergency Department Summary Normal [facility] Eosinophil percentageOrdered By: Valentín Miller on 10-19-2024 Eosinophils/100 WBC (Bld) 3.1 % 0-5 [facility] Erythrocyte distribution wid th ratioOrdered By: Valentín Miller on 10-19-2024 Erythrocyte distribution width (RBC) [Ratio] 12.6 % 11.6-14.6 [facility] Erythrocyte distribution wid th standard deviationOrdered By: Valentín Miller on 10-19-2024 Erythrocyte distribution width (RBC) [Ratio] 43.1 fl 35.1-43.9 [facility] Glomerular filtration rate ( GFR) estimation/1.73 sq m using serum, plasma, or whole bOrdered By: Valentín Miller on 10-19-2024 GFR/1.73 sq M.predicted among non-blacks MDRD (S/P/Bld) [Vol rate/Area] 68 mL/min/{1.73_m2} >60 [facility] Hematocrit Auto (Bld) [Volum e fraction]Ordered By: Valentín Miller on 10-19-2024 Hematocrit (Bld) [Volume fraction] 40.7 % 40-54 [facility] Hemoglobin measurementOrdere d By: Valentín Miller on 10-19-2024 Hemoglobin (Bld) [Mass/Vol] 13.7 g/dL 13.0-16.5 [facility] Immature granulocytes/100 WB C Auto (Bld)Ordered By: Valentín Miller on 10-19-2024 Immature granulocytes/100 WBC (Bld) 0.100 % 0.0-0.9 [facility] Influenza virus A and B and SARS-CoV-2 (COVID-19) and Respiratory syncytial virus RNAOrdered By: Valentín Miller on 10-19-2024 SARS-CoV-2 (COVID-19) RNA HAYDER+probe Ql (Unsp spec) [facility] L499.0042on 10-19-2024 Trop T High Sen 27 ng/L High <=22 [facility] Comment on above: Performed By: #### L 499.0042 ####[facility] [address] [place], [address] L499.0043on 10-19-2024 Trop T High Sen 26 ng/L High <=22 [facility] Comment on above: Performed By: #### L 499.0043 ####[facility] [address] [place], [address] L501.4021on 10-19-2024 Trop T High Sen 25 ng/L High <=22 [facility] Comment on above: Result Comment: Hemo lysis present, Results??could be affected.??Hemolysis present, Results??could be affected.?? Performed By: #### L 503.7505, L501.4021, L100.0100, L500.2500 ####[facility] [address] [place], [address] L503.7505on 10-19-2024 Natriuretic peptide B (Bld) [Mass/Vol] 4100 pg/mL High <=900 [facility] Comment on above: Result Comment: Hear t Failure Unlikely: < 300 pg/mLHeart Failure Likely< 50 Years: > 450 pg/mL50-75 Years: > 900 pg/mL>75 Years: > 1800 pg/mL Performed By: #### L 503.7505, L501.4021, L100.0100, L500.2500 ####[facility] [address] [place], [address] M100.678on 10-19-2024 M100.678 Pending SARS-CoV-2 (COVID 19) Negative INFLUENZA A Negative INFLUENZA B Negative RSV PCR Negative Normal [facility] Comment on above: Performed By: #### M 100.678 ####[facility] [address] [place], [address] MCV (mean corpuscular volume ) determinationOrdered By: Valentín Miller on 10-19-2024 MCV (RBC) [Entitic vol] 92.7 fL 80-[address] [facility] Mean corpuscular hemoglobin (MCH) determinationOrdered By: Valentín Miller on 10-19-2024 MCH (RBC) [Entitic mass] 31.2 pg 27.0-32.0 [facility] Monocyte percentageOrdered B y: Valentín Miller on 10-19-2024 Monocytes/100 WBC (Bld) 6.1 % 0-[address] [facility] Natriuretic peptide.B prohor parris N-Terminal [Mass/volume] in Serum or PlasmaOrdered By: Valentín Miller on 10-19-2024 Natriuretic peptide.B prohormone N-Terminal [Mass/Vol] 4100 pg/mL High <900 [facility] Neutrophil percentageOrdered By: Valentín Miller on 10-19-2024 Neutrophils/100 WBC (Bld) 65.7 % 47-70 [facility] Platelet countOrdered By: Ana Miller on 10-19-2024 Platelets (Bld) [#/Vol] 241 10*3/uL 150-450 [facility] Potassium measurement (mass/ volume)Ordered By: Valentín Miller on 10-19-2024 Potassium (Unsp spec) [Mass/Vol] 5.5 mmol/L High 3.3-5.1 [facility] RBC Auto (Bld) [#/Vol]Ordere d By: Valentín Miller on 10-19-2024 RBC (Bld) [#/Vol] 4.39 10*6/uL Low 4.6-6.2 [facility] Serum creatinine measurement (mass/volume)Ordered By: Valentín Miller on 10-19-2024 Creatinine [Mass/Vol] 1.19 mg/dL 0.70-1.20 [facility] Serum glucose measurement (m ass/volume)Ordered By: Valentín Miller on 10-19-2024 Glucose [Mass/Vol] 343 mg/dL High 70-99 [facility] Serum or plasma calcium brenda urement (mass/volume)Ordered By: Valentín Miller on 10-19-2024 Calcium [Mass/Vol] 9.2 mg/dL 7.6-11.0 [facility] Serum or plasma urea nitroge n measurement (mass/volume)Ordered By: Valentín Miller on 10-19-2024 Urea nitrogen [Mass/Vol] 19 mg/dL 4-19 [facility] Sodium levelOrdered By: Uli Miller on 10-19-2024 Sodium [Moles/Vol] 133 mmol/L 133-145 [facility] Troponin T.cardiac [Mass/vol ume] in Serum or Plasma by High sensitivity methodOrdered By: Valentín Miller on 10-19-2024 Troponin T.cardiac High sensitivity method [Mass/Vol] 26 ng/L High <22 [facility] Troponin T.cardiac High sensitivity method [Mass/Vol] 27 ng/L High <22 [facility] Troponin T.cardiac High sensitivity method [Mass/Vol] 25 ng/L High <22 [facility] White blood cell (WBC) count Ordered By: Valentín Miller on 10-19-2024 WBC (Bld) [#/Vol] 6.7 10*3/uL 4.4-11.0 [facility] Cardiology Visit Reporton Cardiology Visit Report Normal [facility] Bedside Glucoseon 09-21-2024 FINGERSTICK GLU 223 mg/dL High 74-106 [facility] Comment on above: Result Comment: SNEHA DUNCAN OF PATIENT CARE PER NURSING PROTOCOL Performed By: #### L 501.080 ####[facility] [address] [place], [address] FINGERSTICK GLU 197 mg/dL High 74-106 [facility] Comment on above: Result Comment: SNEHA GEMENT OF PATIENT CARE PER NURSING PROTOCOL Performed By: #### L 501.080 ####[facility] [address] [place], [address] FINGERSTICK GLU 163 mg/dL High 74-106 [facility] Comment on above: Result Comment: SNEHA GEMENT OF PATIENT CARE PER NURSING PROTOCOL Performed By: #### L 501.080 ####[facility] [address] [place], [address] Calculated very low density lipoprotein (VLDL) cholesterol measurementOrdered By: Seth Carrington on 09-21-2024 Calculated very low density lipoprotein (VLDL) cholesterol measurement 31 mg/dL 5-40 [facility] Discharge Instructionon 09-04 Discharge Instruction Normal [facility] deOrdered By: Donna Wolff on 09-21-2024 Glucose [Mass/Vol] 223 mg/dL High 74-106 [facility] LDL calc ser/plasOrdered By: Seth Carrington on 09-21-2024 Cholesterol in LDL [Mass/Vol] 18 mg/dL [facility] Lipid Profileon 09-21-2024 CHOL:HDL 2.11 Normal [facility] Comment on above: Performed By: #### L 500.4100 ####[facility] [address] [place], [address] Cholesterol [Mass/Vol] 93 mg/dL Normal <=200 [facility] Comment on above: Result Comment: Chol esterol level, Desirable <200 mg/dLBorderline high cholesterol 200-239 mg/dLHigh cholesterol >=240 mg/dLRecommendations of the NCEP Adult Treatment Panel for thefollowing risk-cutoff thresholds for the [place] Americanpulation. Performed By: #### L 500.4100 ####[facility] [address] [place], [place], [id number]) Cholesterol in HDL [Mass/Vol] 44 mg/dL Normal [facility] Comment on above: Result Comment: Audrey onal Cholesterol Education Program (NCEP) guidelines:<40 mg/dL: Low HDL-cholesterol (major risk factor for CHD)>= 60 mg/dL: High HDL-cholesterol (negative risk factor forCHD)HDL-cholesterol is affected by a number of factors, e.g.smoking, exercise, hormones, sex and age. Performed By: #### L 500.4100 ####[facility] [address] [place], [address] Cholesterol in LDL [Mass/Vol] 18 mg/dL Normal [facility] Comment on above: Result Comment: Bord sarpfu=588-068 mg/dL Higher Rkzh=657 mg/dL or greater Performed By: #### L 500.4100 ####[facility] [address] [place], [address] Cholesterol in VLDL [Mass/Vol] 31 mg/dL Normal 5-40 [facility] Comment on above: Performed By: #### L 500.4100 ####[facility] [address] [place], [address] Triglyceride [Mass/Vol] 155 mg/dL Normal [facility] Comment on above: Result Comment: The drugs N-Acetylcysteine and Metamizole may falselydepress this assay.Normal range: <150 mg/dLBorderline High: 150-199 mg/dLHigh: 200-499 mg/dLVery High: >500 mg/dL Performed By: #### L 500.4100 ####[facility] [address] [place], [address] Serum or plasma cholesterol in HDL measurement (mass/volume)Ordered By: Seth Carrington on 09-21-2024 Cholesterol in HDL [Mass/Vol] 44 mg/dL >40 [facility] Serum or plasma cholesterol measurement (mass/volume)Ordered By: Seth Carrington on 09-21-2024 Cholesterol [Mass/Vol] 93 mg/dL <201 [facility] Anion gap in Serum or Plasma Ordered By: Seth Carrington on 09-20-2024 Anion gap [Moles/Vol] 11 mmol/L 08-18 [facility] BUN/creatinine ratioOrdered By: Seth Carrington on 09-20-2024 Urea nitrogen/Creatinine [Mass ratio] 17.8 mg/mg 01-23 [facility] Basic Metabolic Profile (BMP )on 09-20-2024 BUN/CRE 17.8 RATIO Normal 01-23 [facility] Comment on above: Performed By: #### L 500.2500 ####[facility] [address] [place], [address] Calcium [Mass/Vol] 9.4 mg/dL Normal 7.6-11.0 [facility] Comment on above: Performed By: #### L 500.2500 ####[facility] [address] [place], [address] Chloride [Moles/Vol] 100 mmol/L Normal 98-108 [facility] Comment on above: Performed By: #### L 500.2500 ####[facility] [address] [place], [address] CO2 [Moles/Vol] 25.3 mmol/L Normal 21.0-32.0 [facility] Comment on above: Performed By: #### L 500.2500 ####[facility] [address] [place], [address] Creatinine [Mass/Vol] 1.11 mg/dL Normal 0.70-1.20 [facility] Comment on above: Performed By: #### L 500.2500 ####[facility] [address] [place], [address] ECRCL 71.61 ml/min Normal 50-250 [facility] Comment on above: Performed By: #### L 500.2500 ####[facility] [address] [place], [address] GAP 11 Normal 08-18 [facility] Comment on above: Performed By: #### L 500.2500 ####[facility] [address] [place], [address] GFR/1.73 sq M.predicted among non-blacks MDRD (S/P/Bld) [Vol rate/Area] 74 mL/min/{1.73_m2} Normal >60 [facility] Comment on above: Result Comment: mL/m in/1.73m2 CKD-EPI Creatinine Equation (2020) Performed By: #### L 500.2500 ####[facility] [address] [place], [address] Glucose [Mass/Vol] 148 mg/dL High 70-99 [facility] Comment on above: Performed By: #### L 500.2500 ####[facility] [address] [place], [address] Potassium [Moles/Vol] 4.0 mmol/L Normal 3.3-5.1 [facility] Comment on above: Performed By: #### L 500.2500 ####[facility] [address] [place], [address] Sodium [Moles/Vol] 136 mmol/L Normal 133-145 [facility] Comment on above: Performed By: #### L 500.2500 ####[facility] [address] [place], [address] Urea nitrogen [Mass/Vol] 20 mg/dL High 4-19 [facility] Comment on above: Performed By: #### L 500.2500 ####[facility] [address] [place], [address] Bedside Glucoseon 09-20-2024 FINGERSTICK GLU 152 mg/dL High 74-106 [facility] Comment on above: Result Comment: SNEHA PERLA OF PATIENT CARE PER NURSING PROTOCOL Performed By: #### L 501.080 ####[facility] [address] [place], [address] FINGERSTICK GLU 190 mg/dL High 74-106 [facility] Comment on above: Result Comment: SNEHA GEMENT OF PATIENT CARE PER NURSING PROTOCOL Performed By: #### L 501.080 ####[facility] [address] [place], [address] FINGERSTICK GLU 246 mg/dL High 74-106 [facility] Comment on above: Result Comment: SNEHA GEMENT OF PATIENT CARE PER NURSING PROTOCOL Performed By: #### L 501.080 ####[facility] [address] [place], [address] FINGERSTICK GLU 154 mg/dL High -106 [facility] Comment on above: Result Comment: SNEHA GEMENT OF PATIENT CARE PER NURSING PROTOCOL Performed By: #### L 501.080 ####[facility] [address] [place], [address] Carbon dioxide, total [Moles /volume] in Central venous bloodOrdered By: Seth Carrington on 09-20-2024 CO2 [Moles/Vol] 25.3 mmol/L 21.0-32.0 [facility] Chloride assayOrdered By: Carol Carrington on 09-20-2024 Chloride [Moles/Vol] 100 mmol/L 98-108 [facility] Electrocardiogram reportOrde red By: Calos Quinn on 09-20-2024 EKG study [facility] Work Phone: Glomerular filtration rate ( GFR) estimation/1.73 sq m using serum, plasma, or whole bOrdered By: Seth Carrington on 09-20-2024 GFR/1.73 sq M.predicted among non-blacks MDRD (S/P/Bld) [Vol rate/Area] 74 mL/min/{1.73_m2} >60 [facility] Potassium measurement (mass/ volume)Ordered By: Seth Carrington on 09-20-2024 Potassium (Unsp spec) [Mass/Vol] 4.0 mmol/L 3.3-5.1 [facility] Serum creatinine measurement (mass/volume)Ordered By: Seth Carrington on 09-20-2024 Creatinine [Mass/Vol] 1.11 mg/dL 0.70-1.20 [facility] Serum glucose measurement (m ass/volume)Ordered By: Seth Carrington on 09-20-2024 Glucose [Mass/Vol] 148 mg/dL High 70-99 [facility] Serum or plasma calcium brenda urement (mass/volume)Ordered By: Seth Carrington on 09-20-2024 Calcium [Mass/Vol] 9.4 mg/dL 7.6-11.0 [facility] Serum or plasma urea nitroge n measurement (mass/volume)Ordered By: Seth Carrington on 09-20-2024 Urea nitrogen [Mass/Vol] 20 mg/dL High 4-19 [facility] Sodium levelOrdered By: Seth Carrington on 09-20-2024 Sodium [Moles/Vol] 136 mmol/L 133-145 [facility] Basic Metabolic Profile (BMP )on 09-19-2024 BUN/CRE 18.5 RATIO Normal 10-20 [facility] Comment on above: Performed By: #### L 500.2500, L100.0500 ####[facility] [address] [place], [address] Calcium [Mass/Vol] 9.4 mg/dL Normal 7.6-11.0 [facility] Comment on above: Performed By: #### L 500.2500, L100.0500 ####[facility] [address] [place], [address] Chloride [Moles/Vol] 99 mmol/L Normal 98-108 [facility] Comment on above: Performed By: #### L 500.2500, L100.0500 ####[facility] [address] [place], [address] CO2 [Moles/Vol] 24.3 mmol/L Normal 21.0-32.0 [facility] Comment on above: Performed By: #### L 500.2500, L100.0500 ####[facility] [address] [place], [address] Creatinine [Mass/Vol] 1.13 mg/dL Normal 0.70-1.20 [facility] Comment on above: Performed By: #### L 500.2500, L100.0500 ####[facility] [address] [place], [address] ECRCL 70.34 ml/min Normal 50-250 [facility] Comment on above: Performed By: #### L 500.2500, L100.0500 ####[facility] [address] [place], [address] GAP 13 Normal 5-15 [facility] Comment on above: Performed By: #### L 500.2500, L100.0500 ####[facility] [address] [place], [address] GFR/1.73 sq M.predicted among non-blacks MDRD (S/P/Bld) [Vol rate/Area] 73 mL/min/{1.73_m2} Normal >60 [facility] Comment on above: Result Comment: mL/m in/1.73m2 CKD-EPI Creatinine Equation (2020) Performed By: #### L 500.2500, L100.0500 ####[facility] [address] [place], [address] Glucose [Mass/Vol] 187 mg/dL High 70-99 [facility] Comment on above: Performed By: #### L 500.2500, L100.0500 ####[facility] [address] [place], [address] Potassium [Moles/Vol] 3.7 mmol/L Normal 3.3-5.1 [facility] Comment on above: Performed By: #### L 500.2500, L100.0500 ####[facility] [address] [place], [address] Sodium [Moles/Vol] 136 mmol/L Normal 133-145 [facility] Comment on above: Performed By: #### L 500.2500, L100.0500 ####[facility] [address] [place], [address] Urea nitrogen [Mass/Vol] 21 mg/dL High 4-19 [facility] Comment on above: Performed By: #### L 500.2500, L100.0500 ####[facility] [address] [place], [address] Bedside Glucoseon 09-19-2024 FINGERSTICK GLU 198 mg/dL High 74-106 [facility] Comment on above: Result Comment: SNEHA GEMENT OF PATIENT CARE PER NURSING PROTOCOL Performed By: #### L 501.080 ####[facility] [address] [place], [address] FINGERSTICK GLU 170 mg/dL High 74-106 [facility] Comment on above: Result Comment: SNEHA GEMENT OF PATIENT CARE PER NURSING PROTOCOL Performed By: #### L 501.080 ####[facility] [address] [place], [address] FINGERSTICK GLU 193 mg/dL High 74-106 [facility] Comment on above: Result Comment: SNEHA GEMENT OF PATIENT CARE PER NURSING PROTOCOL Performed By: #### L 501.080 ####[facility] [address] [place], [address] FINGERSTICK GLU 163 mg/dL High 74-106 [facility] Comment on above: Result Comment: SNEHA GEMENT OF PATIENT CARE PER NURSING PROTOCOL Performed By: #### L 501.080 ####[facility] [address] [place], [address] CBC-Complete Blood Cnt No Di ffon 09-19-2024 Erythrocyte distribution width (RBC) [Ratio] 12.5 % Normal 11.6-14.6 [facility] Comment on above: Performed By: #### L 500.2500, L100.0500 ####[facility] [address] [place], [address] Hematocrit (Bld) [Volume fraction] 44.2 % Normal 40-54 [facility] Comment on above: Performed By: #### L 500.2500, L100.0500 ####[facility] [address] [place], [address] Hemoglobin (Bld) [Mass/Vol] 14.8 g/dL Normal 13.0-16.5 [facility] Comment on above: Performed By: #### L 500.2500, L100.0500 ####[facility] [address] [place], [address] MCH (RBC) [Entitic mass] 31.1 pg Normal 27.0-32.0 [facility] Comment on above: Performed By: #### L 500.2500, L100.0500 ####[facility] [address] [place], [address] MCHC (RBC) [Mass/Vol] 33.5 g/dL Normal 32-36 [facility] Comment on above: Performed By: #### L 500.2500, L100.0500 ####[facility] [address] [place], [address] MCV (RBC) [Entitic vol] 92.9 fL Normal 80-[address] [facility] Comment on above: Performed By: #### L 500.2500, L100.0500 ####[facility] [address] [place], [address] Platelet mean volume (Bld) [Entitic vol] 9.5 fL Normal 6.2-12.0 [facility] Comment on above: Performed By: #### L 500.2500, L100.0500 ####[facility] [address] [place], [address] Platelets (Bld) [#/Vol] 297 10*3/uL Normal 150-450 [facility] Comment on above: Performed By: #### L 500.2500, L100.0500 ####[facility] [address] [place], [address] RBC (Bld) [#/Vol] 4.76 10*6/uL Normal 4.6-6.2 [facility] Comment on above: Performed By: #### L 500.2500, L100.0500 ####[facility] [address] [place], [address] RDW SD 43.1 fl Normal 35.1-43.9 [facility] Comment on above: Performed By: #### L 500.2500, L100.0500 ####[facility] [address] [place], [address] WBC (Bld) [#/Vol] 7.7 10*3/uL Normal 4.4-11.0 [facility] Comment on above: Performed By: #### L 500.2500, L100.0500 ####[facility] [address] [place], [address] Erythrocyte distribution wid th ratioOrdered By: Clinton Soares on 09-19-2024 Erythrocyte distribution width (RBC) [Ratio] 12.5 % 11.6-14.6 [facility] Erythrocyte distribution wid th standard deviationOrdered By: Clinton Soares on 09-19-2024 Erythrocyte distribution width (RBC) [Ratio] 43.1 fl 35.1-43.9 [facility] Hematocrit Auto (Bld) [Volum e fraction]Ordered By: Clinton Soares on 09-19-2024 Hematocrit (Bld) [Volume fraction] 44.2 % 40-54 [facility] Hemoglobin measurementOrdere d By: Clinton Soares on 09-19-2024 Hemoglobin (Bld) [Mass/Vol] 14.8 g/dL 13.0-16.5 [facility] Limited echocardiogram repor tOrdered By: Calos Quinn on 09-19-2024 Study report [facility] Work Phone: MCV (mean corpuscular volume ) determinationOrdered By: Clinton Soares on 09-19-2024 MCV (RBC) [Entitic vol] 92.9 fL 80-[address] [facility] Mean corpuscular hemoglobin (MCH) determinationOrdered By: Clinton Soares on 09-19-2024 MCH (RBC) [Entitic mass] 31.1 pg 27.0-32.0 [facility] Platelet countOrdered By: Buzz Soares on 09-19-2024 Platelets (Bld) [#/Vol] 297 10*3/uL 150-450 [facility] RBC Auto (Bld) [#/Vol]Ordere d By: Clinton Soares on 09-19-2024 RBC (Bld) [#/Vol] 4.76 10*6/uL 4.6-6.2 [facility] White blood cell (WBC) count Ordered By: Clinton Saores on 09-19-2024 WBC (Bld) [#/Vol] 7.7 10*3/uL 4.4-11.0 [facility] 12 Lead EKGon 09-18-2024 12 Lead EKG Normal [facility] Absolute lymphocyte countOrd ered By: Saúl Aguilar on 09-18-2024 Lymphocytes Auto (Unsp spec) [#/Vol] 2.05 10*3/uL 0.83-4.51 [facility] Anion gap in Serum or Plasma Ordered By: Saúl Aguilar on 09-18-2024 Anion gap [Moles/Vol] 12 mmol/L - [facility] Automated lymphocyte count a s percentage of total leukocytesOrdered By: Saúl Aguilar on 09-18-2024 Lymphocytes/100 WBC Auto (Unsp spec) 27.0 % - [facility] BUN/creatinine ratioOrdered By: Saúl Aguilar on 09-18-2024 Urea nitrogen/Creatinine [Mass ratio] 16.5 mg/mg - [facility] Basic Metabolic Profile (BMP )on 09-18-2024 BUN/CRE 16.5 RATIO Normal - [facility] Comment on above: Performed By: #### L 503.7505, L500.2500 ####[facility] [address] [place], [address] Calcium [Mass/Vol] 9.3 mg/dL Normal 7.6-11.0 [facility] Comment on above: Performed By: #### L 503.7505, L500.2500 ####[facility] [address] [place], [address] Chloride [Moles/Vol] 105 mmol/L Normal 98-108 [facility] Comment on above: Performed By: #### L 503.7505, L500.2500 ####[facility] [address] [place], [address] CO2 [Moles/Vol] 22.3 mmol/L Normal 21.0-32.0 [facility] Comment on above: Performed By: #### L 503.7505, L500.2500 ####[facility] [address] [place], [address] Creatinine [Mass/Vol] 1.01 mg/dL Normal 0.70-1.20 [facility] Comment on above: Performed By: #### L 503.7505, L500.2500 ####[facility] [address] [place], [address] GAP 12 Normal 5-15 [facility] Comment on above: Performed By: #### L 503.7505, L500.2500 ####[facility] [address] [place], [address] GFR/1.73 sq M.predicted among non-blacks MDRD (S/P/Bld) [Vol rate/Area] 83 mL/min/{1.73_m2} Normal >60 [facility] Comment on above: Result Comment: mL/m in/1.73m2 CKD-EPI Creatinine Equation (2020) Performed By: #### L 503.7505, L500.2500 ####[facility] [address] [place], [address] Glucose [Mass/Vol] 184 mg/dL High 70-99 [facility] Comment on above: Performed By: #### L 503.7505, L500.2500 ####[facility] [address] [place], [address] Potassium [Moles/Vol] 5.0 mmol/L Normal 3.3-5.1 [facility] Comment on above: Result Comment: Hemo lysis present, Results??could be affected.?? Performed By: #### L 503.7505, L500.2500 ####[facility] [address] [place], [address] Sodium [Moles/Vol] 139 mmol/L Normal 133-145 [facility] Comment on above: Performed By: #### L 503.7505, L500.2500 ####[facility] [address] [place], [address] Urea nitrogen [Mass/Vol] 17 mg/dL Normal 4-19 [facility] Comment on above: Performed By: #### L 503.7505, L500.2500 ####[facility] [address] [place], [address] Basophil percentageOrdered B y: Saúl Aguilar on 09-18-2024 Basophils/100 WBC (Bld) 0.4 % 0-[address] [facility] Bedside Glucoseon 09-18-2024 FINGERSTICK GLU 327 mg/dL High 74-106 [facility] Comment on above: Result Comment: SNEHA GEMENT OF PATIENT CARE PER NURSING PROTOCOL Performed By: #### L 501.080 ####[facility] [address] [place], [address] FINGERSTICK GLU 207 mg/dL High 74-106 [facility] Comment on above: Result Comment: SNEHA GEMENT OF PATIENT CARE PER NURSING PROTOCOL Performed By: #### L 501.080 ####[facility] [address] [place], [address] CBC W/Diff, Automatedon 06-04 10-2024 Absolute Lymph 2.05 X10 3/uL Normal 0.83-4.51 [facility] Comment on above: Performed By: #### L 501.4021, L100.0100 ####[facility] [address] [place], [address] Absolute Neut 4.7 X10 3/uL Normal 2.0-7.7 [facility] Comment on above: Performed By: #### L 501.4021, L100.0100 ####[facility] [address] [place], [address] Basophils/100 WBC (Bld) 0.4 % Normal 0-[address] [facility] Comment on above: Performed By: #### L 501.4021, L100.0100 ####[facility] [address] [place], [address] Eosinophils/100 WBC (Bld) 3.7 % Normal 0-5 [facility] Comment on above: Performed By: #### L 501.4021, L100.0100 ####[facility] [address] [place], [address] Erythrocyte distribution width (RBC) [Ratio] 12.9 % Normal 11.6-14.6 [facility] Comment on above: Performed By: #### L 501.4021, L100.0100 ####[facility] [address] [place], [address] Hematocrit (Bld) [Volume fraction] 44.4 % Normal 40-54 [facility] Comment on above: Performed By: #### L 501.4021, L100.0100 ####[facility] [address] [place], [address] Hemoglobin (Bld) [Mass/Vol] 14.8 g/dL Normal 13.0-16.5 [facility] Comment on above: Performed By: #### L 501.4021, L100.0100 ####[facility] [address] [place], [address] IG% 0.300 Normal 0.0-0.9 [facility] Comment on above: Result Comment: IG% - Immature Granulocytes (promyelocytes, myelocytes andmetamyelocytes) > 1% indicates that a LEFT SHIFT is Present. Performed By: #### L 501.4021, L100.0100 ####[facility] [address] [place], [address] Lymphocytes/100 WBC (Bld) 27.0 % Normal 19-41 [facility] Comment on above: Performed By: #### L 501.4021, L100.0100 ####[facility] [address] [place], [address] MCH (RBC) [Entitic mass] 31.9 pg Normal 27.0-32.0 [facility] Comment on above: Performed By: #### L 501.4021, L100.0100 ####[facility] [address] [place], [address] MCHC (RBC) [Mass/Vol] 33.3 g/dL Normal 32-36 [facility] Comment on above: Performed By: #### L 501.4021, L100.0100 ####[facility] [address] [place], [address] MCV (RBC) [Entitic vol] 95.7 fL High 80-[address] [facility] Comment on above: Performed By: #### L 501.4021, L100.0100 ####[facility] [address] [place], [address] Monocytes/100 WBC (Bld) 6.7 % Normal 0-[address] [facility] Comment on above: Performed By: #### L 501.4021, L100.0100 ####[facility] [address] [place], [address] Neutrophils/100 WBC (Bld) 61.9 % Normal 47-70 [facility] Comment on above: Performed By: #### L 501.4021, L100.0100 ####[facility] [address] [place], [address] Nucleated RBC (Bld) [#/Vol] 0 10*3/uL Normal 0-5 [facility] Comment on above: Performed By: #### L 501.4021, L100.0100 ####[facility] [address] [place], [address] Platelet mean volume (Bld) [Entitic vol] 9.5 fL Normal 6.2-12.0 [facility] Comment on above: Performed By: #### L 501.4021, L100.0100 ####[facility] [address] [place], [address] Platelets (Bld) [#/Vol] 276 10*3/uL Normal 150-450 [facility] Comment on above: Performed By: #### L 501.4021, L100.0100 ####[facility] [address] [place], [address] RBC (Bld) [#/Vol] 4.64 10*6/uL Normal 4.6-6.2 [facility] Comment on above: Performed By: #### L 501.4021, L100.0100 ####[facility] [address] [place], [address] RDW SD 45.1 fl High 35.1-43.9 [facility] Comment on above: Performed By: #### L 501.4021, L100.0100 ####[facility] [address] [place], [address] WBC (Bld) [#/Vol] 7.6 10*3/uL Normal 4.4-11.0 [facility] Comment on above: Performed By: #### L 501.4021, L100.0100 ####[facility] [address] [place], [address] Carbon dioxide, total [Moles /volume] in Central venous bloodOrdered By: Saúl Aguilar on 09-18-2024 CO2 [Moles/Vol] 22.3 mmol/L 21.0-32.0 [facility] Chest 1 View (Portable)on Chest 1 View (Portable) Normal [facility] Chloride assayOrdered By: Chacho Aguilar on 09-18-2024 Chloride [Moles/Vol] 105 mmol/L 98-108 [facility] Echo, Limited Studyon 2024 Echo, Limited Study Normal [facility] Emergency Department Summary on 09-18-2024 Emergency Department Summary Normal [facility] Eosinophil percentageOrdered By: Saúl Aguilar on 09-18-2024 Eosinophils/100 WBC (Bld) 3.7 % 0-5 [facility] Erythrocyte distribution wid th ratioOrdered By: Saúl Aguilar on 09-18-2024 Erythrocyte distribution width (RBC) [Ratio] 12.9 % 11.6-14.6 [facility] Erythrocyte distribution wid th standard deviationOrdered By: Saúl Aguilar on 09-18-2024 Erythrocyte distribution width (RBC) [Ratio] 45.1 fl High 35.1-43.9 [facility] Glomerular filtration rate ( GFR) estimation/1.73 sq m using serum, plasma, or whole bOrdered By: Saúl Aguilar on 09-18-2024 GFR/1.73 sq M.predicted among non-blacks MDRD (S/P/Bld) [Vol rate/Area] 83 mL/min/{1.73_m2} >60 [facility] H AND P Exam - Hospitaliston 09-18-2024 H&P Exam - Hospitalist Normal [facility] Hematocrit Auto (Bld) [Volum e fraction]Ordered By: Saúl Aguilar on 09-18-2024 Hematocrit (Bld) [Volume fraction] 44.4 % 40-54 [facility] Hemoglobin A1con 09-18-2024 HbA1c (Bld) [Mass fraction] 9.9 % High <=5.6 [facility] Comment on above: Result Comment: Norm al < 5.7 % Prediabetic 5.7 - 6.4 % Diabetic >or= 6.5 % Please note range changes. Performed By: #### L 501.9985 ####[facility] [address] [place], [place], [id number] Hemoglobin A1c percentageOrd ered By: Clinton Soares on 09-18-2024 HbA1c (Bld) [Mass fraction] 9.9 % High <5.7 [facility] Hemoglobin measurementOrdere d By: Saúl Aguilar on 09-18-2024 Hemoglobin (Bld) [Mass/Vol] 14.8 g/dL 13.0-16.5 [facility] Immature granulocytes/100 WB C Auto (Bld)Ordered By: Saúl Aguilar on 09-18-2024 Immature granulocytes/100 WBC (Bld) 0.300 % 0.0-0.9 [facility] L499.0042on 09-18-2024 Trop T High Sen 62 ng/L Invalid Interpretation Code <=22 [facility] Comment on above: Result Comment: Crit ical Result(s) Called at: 09/18/2024-01:23 by: Nesha Rodriguez.??Results read back by same. Performed By: #### L 499.0042 ####[facility] [address] [place], [place], [id number] L499.0043on 09-18-2024 Trop T High Sen 64 ng/L Invalid Interpretation Code <=22 [facility] Comment on above: Result Comment: Crit ical Result(s) Called at: 09/18/2024-11:33 by: Nesha Haider.??Results read back by same. Performed By: #### L 499.0043 ####[facility] [address] [place], [address] L501.4021on 09-18-2024 Trop T High Sen 64 ng/L Invalid Interpretation Code <=22 [facility] Comment on above: Result Comment: Hemo lysis present, Results??could be affected.??Critical Result(s) Called at: 09/18/2024-11:33 by: Nesha to Dolly Rodriguez.??Results read back by same. Performed By: #### L 501.4021, L100.0100 ####[facility] [address] [place], [address] L503.7505on 09-18-2024 Natriuretic peptide B (Bld) [Mass/Vol] 2552 pg/mL High <=900 [facility] Comment on above: Result Comment: Hear t Failure Unlikely: < 300 pg/mLHeart Failure Likely< 50 Years: > 450 pg/mL50-75 Years: > 900 pg/mL>75 Years: > 1800 pg/mL Performed By: #### L 503.7505, L500.2500 ####[facility] [address] [place], [place], [address] MCV (mean corpuscular volume ) determinationOrdered By: Saúl Aguilar on 09-18-2024 MCV (RBC) [Entitic vol] 95.7 fL High 80-[address] [facility] Mean corpuscular hemoglobin (MCH) determinationOrdered By: Saúl Aguilar on 09-18-2024 MCH (RBC) [Entitic mass] 31.9 pg 27.0-32.0 [facility] Monocyte percentageOrdered B y: Saúl Aguilar on 09-18-2024 Monocytes/100 WBC (Bld) 6.7 % 0-[address] [facility] Natriuretic peptide.B prohor parris N-Terminal [Mass/volume] in Serum or PlasmaOrdered By: Saúl Aguilar on 09-18-2024 Natriuretic peptide.B prohormone N-Terminal [Mass/Vol] 2552 pg/mL High <900 [facility] Neutrophil percentageOrdered By: Saúl Aguilar on 09-18-2024 Neutrophils/100 WBC (Bld) 61.9 % 47-70 [facility] Platelet countOrdered By: Chacho Aguilar on 09-18-2024 Platelets (Bld) [#/Vol] 276 10*3/uL 150-450 [facility] Potassium measurement (mass/ volume)Ordered By: Saúl Aguilar on 09-18-2024 Potassium (Unsp spec) [Mass/Vol] 5.0 mmol/L 3.3-5.1 [facility] RBC Auto (Bld) [#/Vol]Ordere d By: Saúl Aguilar on 09-18-2024 RBC (Bld) [#/Vol] 4.64 10*6/uL 4.6-6.2 [facility] Serum creatinine measurement (mass/volume)Ordered By: Saúl Aguilar on 09-18-2024 Creatinine [Mass/Vol] 1.01 mg/dL 0.70-1.20 [facility] Serum glucose measurement (m ass/volume)Ordered By: Saúl Aguilar on 09-18-2024 Glucose [Mass/Vol] 184 mg/dL High 70-99 [facility] Serum or plasma calcium brenda urement (mass/volume)Ordered By: Saúl Aguilar on 09-18-2024 Calcium [Mass/Vol] 9.3 mg/dL 7.6-11.0 [facility] Serum or plasma urea nitroge n measurement (mass/volume)Ordered By: Saúl Aguilar on 09-18-2024 Urea nitrogen [Mass/Vol] 17 mg/dL 4-19 [facility] Sodium levelOrdered By: Saúl Aguilar on 09-18-2024 Sodium [Moles/Vol] 139 mmol/L 133-145 [facility] Troponin T.cardiac [Mass/vol ume] in Serum or Plasma by High sensitivity methodOrdered By: Saúl Aguilar on 09-18-2024 Troponin T.cardiac High sensitivity method [Mass/Vol] 64 ng/L High <22 [facility] Troponin T.cardiac High sensitivity method [Mass/Vol] 62 ng/L High <22 [facility] Troponin T.cardiac High sensitivity method [Mass/Vol] 64 ng/L High <22 [facility] White blood cell (WBC) count Ordered By: Saúl Aguilar on 09-18-2024 WBC (Bld) [#/Vol] 7.6 10*3/uL 4.4-11.0 [facility] Arterial study reportOrdered By: Saúl Flowers on 09-08-2024 Noninvasive arteriosclerosis study report [facility] Work Phone: [phone] Carotid Duplex Ultrasoundon 09-08-2024 Carotid Duplex Ultrasound Normal [facility] Duplex ultrasound of carotid artery reportOrdered By: Saúl Flowers on 09-08-2024 Study report [facility] Work Phone: [phone] Lower Ext Art Exam w/o Exerc zachary 09-08-2024 Lower Ext Art Exam w/o Exercis Normal [facility] Internal Medicine Office Vis iton 08-02-2024 Internal Medicine Office Visit Normal [facility] No Panel InformationOrdered By: Xiang Rogers on 08-02-2024 12.5 % High 4.2-6.3 [facility] L499.0043on 07-30-2024 Trop T High Sen Normal <=22 [facility] Comment on above: Result Comment: Canc elled via OM: Order cancelled - Patient discharged Performed By: #### L 499.0043 ####[facility] [address] [place], [address] Absolute lymphocyte countOrd ered By: ED PROVIDER on 07-29-2024 Lymphocytes Auto (Unsp spec) [#/Vol] 2.79 10*3/uL 0.83-4.51 [facility] Anion gap in Serum or Plasma Ordered By: Lawson Castellon on 07-29-2024 Anion gap [Moles/Vol] 16 mmol/L High 5-15 [facility] Automated lymphocyte count a s percentage of total leukocytesOrdered By: ED PROVIDER on 07-29-2024 Lymphocytes/100 WBC Auto (Unsp spec) 37.4 % 19-41 [facility] BUN/creatinine ratioOrdered By: Lawson Castellon on 07-29-2024 Urea nitrogen/Creatinine [Mass ratio] 20.7 mg/mg High 10-20 [facility] Basic Metabolic Profile (BMP )on 07-29-2024 BUN/CRE 20.7 RATIO High 10-20 [facility] Comment on above: Performed By: #### L 501.4021, L500.2500, L100.0100 ####[facility] [address] [place], [address] Calcium [Mass/Vol] 9.3 mg/dL Normal 7.6-11.0 [facility] Comment on above: Performed By: #### L 501.4021, L500.2500, L100.0100 ####[facility] [address] [place], [address] Chloride [Moles/Vol] 99 mmol/L Normal 98-108 [facility] Comment on above: Performed By: #### L 501.4021, L500.2500, L100.0100 ####[facility] [address] [place], [address] CO2 [Moles/Vol] 19.8 mmol/L Low 21.0-32.0 [facility] Comment on above: Performed By: #### L 501.4021, L500.2500, L100.0100 ####[facility] [address] [place], [address] Creatinine [Mass/Vol] 1.11 mg/dL Normal 0.70-1.20 [facility] Comment on above: Performed By: #### L 501.4021, L500.2500, L100.0100 ####[facility] [address] [place], [address] ECRCL 71.61 ml/min Normal 50-250 [facility] Comment on above: Performed By: #### L 501.4021, L500.2500, L100.0100 ####[facility] [address] [place], [address] GAP 16 High 5-15 [facility] Comment on above: Performed By: #### L 501.4021, L500.2500, L100.0100 ####[facility] [address] [place], [address] GFR/1.73 sq M.predicted among non-blacks MDRD (S/P/Bld) [Vol rate/Area] 74 mL/min/{1.73_m2} Normal >60 [facility] Comment on above: Result Comment: mL/m in/1.73m2 CKD-EPI Creatinine Equation (2020) Performed By: #### L 501.4021, L500.2500, L100.0100 ####[facility] [address] [place], [address] Glucose [Mass/Vol] 400 mg/dL High 70-99 [facility] Comment on above: Performed By: #### L 501.4021, L500.2500, L100.0100 ####[facility] [address] [place], [address] Potassium [Moles/Vol] 4.0 mmol/L Normal 3.3-5.1 [facility] Comment on above: Result Comment: Hemo lysis present, Results??could be affected.?? Performed By: #### L 501.4021, L500.2500, L100.0100 ####[facility] [address] [place], [address] Sodium [Moles/Vol] 134 mmol/L Normal 133-145 [facility] Comment on above: Performed By: #### L 501.4021, L500.2500, L100.0100 ####[facility] [address] [place], [address] Urea nitrogen [Mass/Vol] 23 mg/dL High 4-19 [facility] Comment on above: Performed By: #### L 501.4021, L500.2500, L100.0100 ####[facility] [address] [place], [address] Basophil percentageOrdered B y: ED PROVIDER on 07-29-2024 Basophils/100 WBC (Bld) 0.3 % 0-[address] [facility] CBC W/Diff, Automatedon 07-06 Absolute Lymph 2.79 X10 3/uL Normal 0.83-4.51 [facility] Comment on above: Performed By: #### L 501.4021, L500.2500, L100.0100 ####[facility] [address] [place], [address] Absolute Neut 4.0 X10 3/uL Normal 2.0-7.7 [facility] Comment on above: Performed By: #### L 501.4021, L500.2500, L100.0100 ####[facility] [address] [place], [address] Basophils/100 WBC (Bld) 0.3 % Normal 0-[address] [facility] Comment on above: Performed By: #### L 501.4021, L500.2500, L100.0100 ####[facility] [address] [place], [address] Eosinophils/100 WBC (Bld) 2.5 % Normal 0-5 [facility] Comment on above: Performed By: #### L 501.4021, L500.2500, L100.0100 ####[facility] [address] [place], [address] Erythrocyte distribution width (RBC) [Ratio] 12.7 % Normal 11.6-14.6 [facility] Comment on above: Performed By: #### L 501.4021, L500.2500, L100.0100 ####[facility] [address] [place], [address] Hematocrit (Bld) [Volume fraction] 44.1 % Normal 40-54 [facility] Comment on above: Performed By: #### L 501.4021, L500.2500, L100.0100 ####[facility] [address] [place], [address] Hemoglobin (Bld) [Mass/Vol] 15.6 g/dL Normal 13.0-16.5 [facility] Comment on above: Performed By: #### L 501.4021, L500.2500, L100.0100 ####[facility] [address] [place], [address] IG% 0.100 Normal 0.0-0.9 [facility] Comment on above: Result Comment: IG% - Immature Granulocytes (promyelocytes, myelocytes andmetamyelocytes) > 1% indicates that a LEFT SHIFT is Present. Performed By: #### L 501.4021, L500.2500, L100.0100 ####[facility] [address] [place], [address] Lymphocytes/100 WBC (Bld) 37.4 % Normal 19-41 [facility] Comment on above: Performed By: #### L 501.4021, L500.2500, L100.0100 ####[facility] [address] [place], [address] MCH (RBC) [Entitic mass] 32.2 pg High 27.0-32.0 [facility] Comment on above: Performed By: #### L 501.4021, L500.2500, L100.0100 ####[facility] [address] [place], [address] MCHC (RBC) [Mass/Vol] 35.4 g/dL Normal 32-36 [facility] Comment on above: Performed By: #### L 501.4021, L500.2500, L100.0100 ####[facility] [address] [place], [address] MCV (RBC) [Entitic vol] 90.9 fL Normal 80-[address] [facility] Comment on above: Performed By: #### L 501.4021, L500.2500, L100.0100 ####[facility] [address], [address] Monocytes/100 WBC (Bld) 6.6 % Normal 0-10 [facility] Comment on above: Performed By: #### L 501.4021, L500.2500, L100.0100 ####[facility] [address] [place], [address] Neutrophils/100 WBC (Bld) 53.1 % Normal 47-70 [facility] Comment on above: Performed By: #### L 501.4021, L500.2500, L100.0100 ####[facility] [address] [place], [address] Nucleated RBC (Bld) [#/Vol] 0 10*3/uL Normal 0-5 [facility] Comment on above: Performed By: #### L 501.4021, L500.2500, L100.0100 ####[facility] [address] [place], [address] Platelet mean volume (Bld) [Entitic vol] 10.3 fL Normal 6.2-12.0 [facility] Comment on above: Performed By: #### L 501.4021, L500.2500, L100.0100 ####[facility] [address] [place], [address] Platelets (Bld) [#/Vol] 275 10*3/uL Normal 150-450 [facility] Comment on above: Performed By: #### L 501.4021, L500.2500, L100.0100 ####[facility] [address], [address] RBC (Bld) [#/Vol] 4.85 10*6/uL Normal 4.6-6.2 [facility] Comment on above: Performed By: #### L 501.4021, L500.2500, L100.0100 ####[facility] [address] [place], [address] RDW SD 41.7 fl Normal 35.1-43.9 [facility] Comment on above: Performed By: #### L 501.4021, L500.2500, L100.0100 ####[facility] [address] [place], [address] WBC (Bld) [#/Vol] 7.5 10*3/uL Normal 4.4-11.0 [facility] Comment on above: Performed By: #### L 501.4021, L500.2500, L100.0100 ####[facility] [address] [place], [address] Carbon dioxide, total [Moles /volume] in Central venous bloodOrdered By: Lawson Castellon on 07-29-2024 CO2 [Moles/Vol] 19.8 mmol/L Low 21.0-32.0 [facility] Chest 1 View (Portable)on Chest 1 View (Portable) Normal [facility] Chloride assayOrdered By: Isael Castellon on 07-29-2024 Chloride [Moles/Vol] 99 mmol/L 98-108 [facility] Emergency Department Summary on 07-29-2024 Emergency Department Summary Normal [facility] Eosinophil percentageOrdered By: ED PROVIDER on 07-29-2024 Eosinophils/100 WBC (Bld) 2.5 % 0-5 [facility] Erythrocyte distribution wid th ratioOrdered By: ED PROVIDER on 07-29-2024 Erythrocyte distribution width (RBC) [Ratio] 12.7 % 11.6-14.6 [facility] Erythrocyte distribution wid th standard deviationOrdered By: ED PROVIDER on 07-29-2024 Erythrocyte distribution width (RBC) [Ratio] 41.7 fl 35.1-43.9 [facility] Glomerular filtration rate ( GFR) estimation/1.73 sq m using serum, plasma, or whole bOrdered By: Lawson Castellon on 07-29-2024 GFR/1.73 sq M.predicted among non-blacks MDRD (S/P/Bld) [Vol rate/Area] 74 mL/min/{1.73_m2} >60 [facility] Hematocrit Auto (Bld) [Volum e fraction]Ordered By: ED PROVIDER on 07-29-2024 Hematocrit (Bld) [Volume fraction] 44.1 % 40-54 [facility] Hemoglobin measurementOrdere d By: ED PROVIDER on 07-29-2024 Hemoglobin (Bld) [Mass/Vol] 15.6 g/dL 13.0-16.5 [facility] Immature granulocytes/100 WB C Auto (Bld)Ordered By: ED PROVIDER on 07-29-2024 Immature granulocytes/100 WBC (Bld) 0.100 % 0.0-0.9 [facility] L499.0042on 07-29-2024 Trop T High Sen 27 ng/L High <=22 [facility] Comment on above: Performed By: #### L 499.0042 ####[facility] [address] [facility] [place], [address] L501.4021on 07-29-2024 Trop T High Sen 22 ng/L Normal <=22 [facility] Comment on above: Performed By: #### L 501.4021, L500.2500, L100.0100 ####[facility] [address] [place], [address] MCV (mean corpuscular volume ) determinationOrdered By: ED PROVIDER on 07-29-2024 MCV (RBC) [Entitic vol] 90.9 fL 80-[address] [facility] Mean corpuscular hemoglobin (MCH) determinationOrdered By: ED PROVIDER on 07-29-2024 MCH (RBC) [Entitic mass] 32.2 pg High 27.0-32.0 [facility] Monocyte percentageOrdered B y: ED PROVIDER on 07-29-2024 Monocytes/100 WBC (Bld) 6.6 % 0-[address] [facility] Neutrophil percentageOrdered By: ED PROVIDER on 07-29-2024 Neutrophils/100 WBC (Bld) 53.1 % 47-70 [facility] Platelet countOrdered By: ED PROVIDER on 07-29-2024 Platelets (Bld) [#/Vol] 275 10*3/uL 150-450 [facility] Potassium measurement (mass/ volume)Ordered By: Lawson Castellon on 07-29-2024 Potassium (Unsp spec) [Mass/Vol] 4.0 mmol/L 3.3-5.1 [facility] RBC Auto (Bld) [#/Vol]Ordere d By: ED PROVIDER on 07-29-2024 RBC (Bld) [#/Vol] 4.85 10*6/uL 4.6-6.2 [facility] Serum creatinine measurement (mass/volume)Ordered By: Lawson Castellon on 07-29-2024 Creatinine [Mass/Vol] 1.11 mg/dL 0.70-1.20 [facility] Serum glucose measurement (m ass/volume)Ordered By: Lawson Castellon on 07-29-2024 Glucose [Mass/Vol] 400 mg/dL High 70-99 [facility] Serum or plasma calcium brenda urement (mass/volume)Ordered By: Lawson Castellon on 07-29-2024 Calcium [Mass/Vol] 9.3 mg/dL 7.6-11.0 [facility] Serum or plasma urea nitroge n measurement (mass/volume)Ordered By: Lawson Castellon on 07-29-2024 Urea nitrogen [Mass/Vol] 23 mg/dL High 4-19 [facility] Sodium levelOrdered By: Lawson Castellon on 07-29-2024 Sodium [Moles/Vol] 134 mmol/L 133-145 [facility] Troponin T.cardiac [Mass/vol ume] in Serum or Plasma by High sensitivity methodOrdered By: Lawson Castellon on 07-29-2024 Troponin T.cardiac High sensitivity method [Mass/Vol] 27 ng/L High <22 [facility] Troponin T.cardiac High sensitivity method [Mass/Vol] 22 ng/L <22 [facility] White blood cell (WBC) count Ordered By: ED PROVIDER on 07-29-2024 WBC (Bld) [#/Vol] 7.5 10*3/uL 4.4-11.0 [facility] MR/BMS.BVSon 07-14-2024 MR/BMS.BVS Normal [facility] Cardiology Visit Reporton Cardiology Visit Report Normal [facility] Basic Metabolic Profile (BMP )on 06-26-2024 BUN Normal - [facility] Comment on above: Result Comment: Canc elled via OM: Order cancelled - Patient discharged Performed By: #### L 500.2500, L100.0500 ####[facility] [address] [place], [address] BUN/CRE Normal 10-20 [facility] Comment on above: Result Comment: Canc elled via OM: Order cancelled - Patient discharged Performed By: #### L 500.2500, L100.0500 ####[facility] [address] [place], [address] Calcium Normal 7.6-11.0 [facility] Comment on above: Result Comment: Canc elled via OM: Order cancelled - Patient discharged Performed By: #### L 500.2500, L100.0500 ####[facility] [address] [place], [address] CL Normal 98-108 [facility] Comment on above: Result Comment: Canc elled via OM: Order cancelled - Patient discharged Performed By: #### L 500.2500, L100.0500 ####[facility] [address] [place], [address] CO2 Normal 21.0-32.0 [facility] Comment on above: Result Comment: Canc elled via OM: Order cancelled - Patient discharged Performed By: #### L 500.2500, L100.0500 ####[facility] [address] [place], [address] CREAT,SERUM Normal 0.70-1.20 [facility] Comment on above: Result Comment: Canc elled via OM: Order cancelled - Patient discharged Performed By: #### L 500.2500, L100.0500 ####[facility] [address] [place], [address] eGFR Normal >60 [facility] Comment on above: Result Comment: Canc elled via OM: Order cancelled - Patient discharged Performed By: #### L 500.2500, L100.0500 ####[facility] [address] [place], [address] GAP Normal 5-15 [facility] Comment on above: Result Comment: Canc elled via OM: Order cancelled - Patient discharged Performed By: #### L 500.2500, L100.0500 ####[facility] [address] [place], [address] GLU Normal 70-99 [facility] Comment on above: Result Comment: Canc elled via OM: Order cancelled - Patient discharged Performed By: #### L 500.2500, L100.0500 ####[facility] [address] [place], [address] Potassium Normal 3.3-5.1 [facility] Comment on above: Result Comment: Canc elled via OM: Order cancelled - Patient discharged Performed By: #### L 500.2500, L100.0500 ####[facility] [address] [place], [address] Basic Metabolic Profile (BMP) Normal 133-145 [facility] Comment on above: Result Comment: Canc elled via OM: Order cancelled - Patient discharged Performed By: #### L 500.2500, L100.0500 ####[facility] [facility] [address] [place], [address] CBC-Complete Blood Cnt No Di ffon 06-26-2024 HCT Normal 40-54 [facility] Comment on above: Result Comment: Canc elled via OM: Order cancelled - Patient discharged Performed By: #### L 500.2500, L100.0500 ####[facility] [address] [place], [address] HGB Normal 13.0-16.5 [facility] Comment on above: Result Comment: Canc elled via OM: Order cancelled - Patient discharged Performed By: #### L 500.2500, L100.0500 ####[facility] [address] [place], [address] MCH Normal 27.0-32.0 [facility] Comment on above: Result Comment: Canc elled via OM: Order cancelled - Patient discharged Performed By: #### L 500.2500, L100.0500 ####[facility] [address] [place], [address] MCHC Normal 32-36 [facility] Comment on above: Result Comment: Canc elled via OM: Order cancelled - Patient discharged Performed By: #### L 500.2500, L100.0500 ####[facility] [address] [place], [address] MCV Normal 80-94 [facility] Comment on above: Result Comment: Canc elled via OM: Order cancelled - Patient discharged Performed By: #### L 500.2500, L100.0500 ####[facility] [address] [place], [address] PLT Normal 150-450 [facility] Comment on above: Result Comment: Canc elled via OM: Order cancelled - Patient discharged Performed By: #### L 500.2500, L100.0500 ####[facility] [address] [place], [address] RBC Normal 4.6-6.2 [facility] Comment on above: Result Comment: Canc elled via OM: Order cancelled - Patient discharged Performed By: #### L 500.2500, L100.0500 ####[facility] [address] [place], [address] RDW CV Normal 11.6-14.6 [facility] Comment on above: Result Comment: Canc elled via OM: Order cancelled - Patient discharged Performed By: #### L 500.2500, L100.0500 ####[facility] [address] [place], [address] RDW SD Normal 35.1-43.9 [facility] Comment on above: Result Comment: Canc elled via OM: Order cancelled - Patient discharged Performed By: #### L 500.2500, L100.0500 ####[facility] [address] [place], [address] WBC Normal 4.4-11.0 [facility] Comment on above: Result Comment: Canc elled via OM: Order cancelled - Patient discharged Performed By: #### L 500.2500, L100.0500 ####[facility] [address] [place], [address] Basic Metabolic Profile (BMP )on 06-25-2024 BUN Normal 4-19 [facility] Comment on above: Result Comment: Canc elled via OM: Order cancelled - Patient discharged Performed By: #### L 100.0500, L500.2500 ####[facility] [address] [place], [address] BUN/CRE Normal 10-20 [facility] Comment on above: Result Comment: Canc elled via OM: Order cancelled - Patient discharged Performed By: #### L 100.0500, L500.2500 ####[facility] [address] [place], [address] Calcium Normal 7.6-11.0 [facility] Comment on above: Result Comment: Canc elled via OM: Order cancelled - Patient discharged Performed By: #### L 100.0500, L500.2500 ####[facility] [address] [place], [address] CL Normal 98-108 [facility] Comment on above: Result Comment: Canc elled via OM: Order cancelled - Patient discharged Performed By: #### L 100.0500, L500.2500 ####[facility] [address] [place], [address] CO2 Normal 21.0-32.0 [facility] Comment on above: Result Comment: Canc elled via OM: Order cancelled - Patient discharged Performed By: #### L 100.0500, L500.2500 ####[facility] [address] [place], [address] CREAT,SERUM Normal 0.70-1.20 [facility] Comment on above: Result Comment: Canc elled via OM: Order cancelled - Patient discharged Performed By: #### L 100.0500, L500.2500 ####[facility] [address] [place], [address] eGFR Normal >60 [facility] Comment on above: Result Comment: Canc elled via OM: Order cancelled - Patient discharged Performed By: #### L 100.0500, L500.2500 ####[facility] [address] [place], [address] GAP Normal 5-15 [facility] Comment on above: Result Comment: Canc elled via OM: Order cancelled - Patient discharged Performed By: #### L 100.0500, L500.2500 ####[facility] [address] [place], [address] GLU Normal 70-99 [facility] Comment on above: Result Comment: Canc elled via OM: Order cancelled - Patient discharged Performed By: #### L 100.0500, L500.2500 ####[facility] [address] [place], [address] Potassium Normal 3.3-5.1 [facility] Comment on above: Result Comment: Canc elled via OM: Order cancelled - Patient discharged Performed By: #### L 100.0500, L500.2500 ####[facility] [address] [place], [address] Basic Metabolic Profile (BMP) Normal 133-145 [facility] Comment on above: Result Comment: Canc elled via OM: Order cancelled - Patient discharged Performed By: #### L 100.0500, L500.2500 ####[facility] [address] [place], [address] CBC-Complete Blood Cnt No Di ffon 06-25-2024 HCT Normal 40-54 [facility] Comment on above: Result Comment: Canc elled via OM: Order cancelled - Patient discharged Performed By: #### L 100.0500, L500.2500 ####[facility] [address] [place], [address] HGB Normal 13.0-16.5 [facility] Comment on above: Result Comment: Canc elled via OM: Order cancelled - Patient discharged Performed By: #### L 100.0500, L500.2500 ####[facility] [address] [place], [address] MCH Normal 27.0-32.0 [facility] Comment on above: Result Comment: Canc elled via OM: Order cancelled - Patient discharged Performed By: #### L 100.0500, L500.2500 ####[facility] [address] [place], [address] MCHC Normal 32-36 [facility] Comment on above: Result Comment: Canc elled via OM: Order cancelled - Patient discharged Performed By: #### L 100.0500, L500.2500 ####[facility] [address] [place], [address] MCV Normal 80-94 [facility] Comment on above: Result Comment: Canc elled via OM: Order cancelled - Patient discharged Performed By: #### L 100.0500, L500.2500 ####[facility] [address] [place], [address] PLT Normal 150-450 [facility] Comment on above: Result Comment: Canc elled via OM: Order cancelled - Patient discharged Performed By: #### L 100.0500, L500.2500 ####[facility] [address] [place], [address] RBC Normal 4.6-6.2 [facility] Comment on above: Result Comment: Canc elled via OM: Order cancelled - Patient discharged Performed By: #### L 100.0500, L500.2500 ####[facility] [address] [place], [address] RDW CV Normal 11.6-14.6 [facility] Comment on above: Result Comment: Canc elled via OM: Order cancelled - Patient discharged Performed By: #### L 100.0500, L500.2500 ####[facility] [address] [place], [address] RDW SD Normal 35.1-43.9 [facility] Comment on above: Result Comment: Canc elled via OM: Order cancelled - Patient discharged Performed By: #### L 100.0500, L500.2500 ####[facility] [address] [place], [address] WBC Normal 4.4-11.0 [facility] Comment on above: Result Comment: Canc elled via OM: Order cancelled - Patient discharged Performed By: #### L 100.0500, L500.2500 ####[facility] [address] [place], [address] Basic Metabolic Profile (BMP )on 06-24-2024 BUN Normal 4-19 [facility] Comment on above: Result Comment: Canc elled via OM: Order cancelled - Patient discharged Performed By: #### L 500.2500, L100.0500 ####[facility] [address] [place], [address] BUN/CRE Normal 10-20 [facility] Comment on above: Result Comment: Canc elled via OM: Order cancelled - Patient discharged Performed By: #### L 500.2500, L100.0500 ####[facility] [address] [place], [address] Calcium Normal 7.6-11.0 [facility] Comment on above: Result Comment: Canc elled via OM: Order cancelled - Patient discharged Performed By: #### L 500.2500, L100.0500 ####[facility] [address] [place], [address] CL Normal 98-108 [facility] Comment on above: Result Comment: Canc elled via OM: Order cancelled - Patient discharged Performed By: #### L 500.2500, L100.0500 ####[facility] [address] [place], [address] CO2 Normal 21.0-32.0 [facility] Comment on above: Result Comment: Canc elled via OM: Order cancelled - Patient discharged Performed By: #### L 500.2500, L100.0500 ####[facility] [address] [place], [address] CREAT,SERUM Normal 0.70-1.20 [facility] Comment on above: Result Comment: Canc elled via OM: Order cancelled - Patient discharged Performed By: #### L 500.2500, L100.0500 ####[facility] [address] [place], [address] eGFR Normal >60 [facility] Comment on above: Result Comment: Canc elled via OM: Order cancelled - Patient discharged Performed By: #### L 500.2500, L100.0500 ####[facility] [address] [place], [address] GAP Normal 5-15 [facility] Comment on above: Result Comment: Canc elled via OM: Order cancelled - Patient discharged Performed By: #### L 500.2500, L100.0500 ####[facility] [address] [place], [address] GLU Normal 70-99 [facility] Comment on above: Result Comment: Canc elled via OM: Order cancelled - Patient discharged Performed By: #### L 500.2500, L100.0500 ####[facility] [address] [place], [address] Potassium Normal 3.3-5.1 [facility] Comment on above: Result Comment: Canc elled via OM: Order cancelled - Patient discharged Performed By: #### L 500.2500, L100.0500 ####[facility] [address] [place], [address] Basic Metabolic Profile (BMP) Normal 133-145 [facility] Comment on above: Result Comment: Canc elled via OM: Order cancelled - Patient discharged Performed By: #### L 500.2500, L100.0500 ####[facility] [address] [place], [address] CBC-Complete Blood Cnt No Di ffon 06-24-2024 HCT Normal 40-54 [facility] Comment on above: Result Comment: Canc elled via OM: Order cancelled - Patient discharged Performed By: #### L 500.2500, L100.0500 ####[facility] [address] [place], [address] HGB Normal 13.0-16.5 [facility] Comment on above: Result Comment: Canc elled via OM: Order cancelled - Patient discharged Performed By: #### L 500.2500, L100.0500 ####[facility] [address] [place], [address] MCH Normal 27.0-32.0 [facility] Comment on above: Result Comment: Canc elled via OM: Order cancelled - Patient discharged Performed By: #### L 500.2500, L100.0500 ####[facility] [address] [place], [address] MCHC Normal 32-36 [facility] Comment on above: Result Comment: Canc elled via OM: Order cancelled - Patient discharged Performed By: #### L 500.2500, L100.0500 ####[facility] [address] [place], [address] MCV Normal 80-94 [facility] Comment on above: Result Comment: Canc elled via OM: Order cancelled - Patient discharged Performed By: #### L 500.2500, L100.0500 ####[facility] [address] [place], [address] PLT Normal 150-450 [facility] Comment on above: Result Comment: Canc elled via OM: Order cancelled - Patient discharged Performed By: #### L 500.2500, L100.0500 ####[facility] [address] [place], [address] RBC Normal 4.6-6.2 [facility] Comment on above: Result Comment: Canc elled via OM: Order cancelled - Patient discharged Performed By: #### L 500.2500, L100.0500 ####[facility] [address] [place], [address] RDW CV Normal 11.6-14.6 [facility] Comment on above: Result Comment: Canc elled via OM: Order cancelled - Patient discharged Performed By: #### L 500.2500, L100.0500 ####[facility] [address] [place], [address] RDW SD Normal 35.1-43.9 [facility] Comment on above: Result Comment: Canc elled via OM: Order cancelled - Patient discharged Performed By: #### L 500.2500, L100.0500 ####[facility] [address] [place], [address] WBC Normal 4.4-11.0 [facility] Comment on above: Result Comment: Canc elled via OM: Order cancelled - Patient discharged Performed By: #### L 500.2500, L100.0500 ####[facility] [address] [place], [address] Basic Metabolic Profile (BMP )on 06-23-2024 BUN Normal -19 [facility] Comment on above: Result Comment: Canc elled via OM: Order cancelled - Patient discharged Performed By: #### L 500.2500, L100.0500 ####[facility] [address] [place], [address] BUN/CRE Normal -20 [facility] Comment on above: Result Comment: Canc elled via OM: Order cancelled - Patient discharged Performed By: #### L 500.2500, L100.0500 ####[facility] [address] [place], [address] Calcium Normal 7.6-11.0 [facility] Comment on above: Result Comment: Canc elled via OM: Order cancelled - Patient discharged Performed By: #### L 500.2500, L100.0500 ####[facility] [address] [place], [address] CL Normal 98-108 [facility] Comment on above: Result Comment: Canc elled via OM: Order cancelled - Patient discharged Performed By: #### L 500.2500, L100.0500 ####[facility] [address] [place], [address] CO2 Normal 21.0-32.0 [facility] Comment on above: Result Comment: Canc elled via OM: Order cancelled - Patient discharged Performed By: #### L 500.2500, L100.0500 ####[facility] [address] [place], [address] CREAT,SERUM Normal 0.70-1.20 [facility] Comment on above: Result Comment: Canc elled via OM: Order cancelled - Patient discharged Performed By: #### L 500.2500, L100.0500 ####[facility] [address] [place], [address] eGFR Normal >60 [facility] Comment on above: Result Comment: Canc elled via OM: Order cancelled - Patient discharged Performed By: #### L 500.2500, L100.0500 ####[facility] [address] [place], [address] GAP Normal 5-15 [facility] Comment on above: Result Comment: Canc elled via OM: Order cancelled - Patient discharged Performed By: #### L 500.2500, L100.0500 ####[facility] [address] [place], [address] GLU Normal 70-99 [facility] Comment on above: Result Comment: Canc elled via OM: Order cancelled - Patient discharged Performed By: #### L 500.2500, L100.0500 ####[facility] [address] [place], [address] Potassium Normal 3.3-5.1 [facility] Comment on above: Result Comment: Canc elled via OM: Order cancelled - Patient discharged Performed By: #### L 500.2500, L100.0500 ####[facility] [address] [place], [address] Basic Metabolic Profile (BMP) Normal 133-145 [facility] Comment on above: Result Comment: Canc elled via OM: Order cancelled - Patient discharged Performed By: #### L 500.2500, L100.0500 ####[facility] [address] [place], [address] CBC-Complete Blood Cnt No Di ffon 06-23-2024 HCT Normal 40-54 [facility] Comment on above: Result Comment: Canc elled via OM: Order cancelled - Patient discharged Performed By: #### L 500.2500, L100.0500 ####[facility] [address] [place], [address] HGB Normal 13.0-16.5 [facility] Comment on above: Result Comment: Canc elled via OM: Order cancelled - Patient discharged Performed By: #### L 500.2500, L100.0500 ####[facility] [address] [place], [address] MCH Normal 27.0-32.0 [facility] Comment on above: Result Comment: Canc elled via OM: Order cancelled - Patient discharged Performed By: #### L 500.2500, L100.0500 ####[facility] [address] [place], [address] MCHC Normal 32-36 [facility] Comment on above: Result Comment: Canc elled via OM: Order cancelled - Patient discharged Performed By: #### L 500.2500, L100.0500 ####[facility] [address] [place], [address] MCV Normal 80-94 [facility] Comment on above: Result Comment: Canc elled via OM: Order cancelled - Patient discharged Performed By: #### L 500.2500, L100.0500 ####[facility] [address] [place], [address] PLT Normal 150-450 [facility] Comment on above: Result Comment: Canc elled via OM: Order cancelled - Patient discharged Performed By: #### L 500.2500, L100.0500 ####[facility] [address] [place], [address] RBC Normal 4.6-6.2 [facility] Comment on above: Result Comment: Canc elled via OM: Order cancelled - Patient discharged Performed By: #### L 500.2500, L100.0500 ####[facility] [address], [address] RDW CV Normal 11.6-14.6 [facility] Comment on above: Result Comment: Canc elled via OM: Order cancelled - Patient discharged Performed By: #### L 500.2500, L100.0500 ####[facility] [address] [place], [address] RDW SD Normal 35.1-43.9 [facility] Comment on above: Result Comment: Canc elled via OM: Order cancelled - Patient discharged Performed By: #### L 500.2500, L100.0500 ####[facility] [address] [place], [address] WBC Normal 4.4-11.0 [facility] Comment on above: Result Comment: Canc elled via OM: Order cancelled - Patient discharged Performed By: #### L 500.2500, L100.0500 ####[facility] [address], [address] Basic Metabolic Profile (BMP )on 06-22-2024 BUN Normal -19 [facility] Comment on above: Result Comment: Canc elled via OM: Order cancelled - Patient discharged Performed By: #### L 100.0500, L500.2500 ####[facility] [address] [place], [address] BUN/CRE Normal 10-20 [facility] Comment on above: Result Comment: Canc elled via OM: Order cancelled - Patient discharged Performed By: #### L 100.0500, L500.2500 ####[facility] [address] [place], [address] Calcium Normal 7.6-11.0 [facility] Comment on above: Result Comment: Canc elled via OM: Order cancelled - Patient discharged Performed By: #### L 100.0500, L500.2500 ####[facility] [address] [place], [address] CL Normal 98-108 [facility] Comment on above: Result Comment: Canc elled via OM: Order cancelled - Patient discharged Performed By: #### L 100.0500, L500.2500 ####[facility] [address] [place], [address] CO2 Normal 21.0-32.0 [facility] Comment on above: Result Comment: Canc elled via OM: Order cancelled - Patient discharged Performed By: #### L 100.0500, L500.2500 ####[facility] [address] [place], [address] CREAT,SERUM Normal 0.70-1.20 [facility] Comment on above: Result Comment: Canc elled via OM: Order cancelled - Patient discharged Performed By: #### L 100.0500, L500.2500 ####[facility] [address] [place], [address] eGFR Normal >60 [facility] Comment on above: Result Comment: Canc elled via OM: Order cancelled - Patient discharged Performed By: #### L 100.0500, L500.2500 ####[facility] [address] [place], [address] GAP Normal 5-15 [facility] Comment on above: Result Comment: Canc elled via OM: Order cancelled - Patient discharged Performed By: #### L 100.0500, L500.2500 ####[facility] [address] [place], [address] GLU Normal 70-99 [facility] Comment on above: Result Comment: Canc elled via OM: Order cancelled - Patient discharged Performed By: #### L 100.0500, L500.2500 ####[facility] [address] [place], [address] Potassium Normal 3.3-5.1 [facility] Comment on above: Result Comment: Canc elled via OM: Order cancelled - Patient discharged Performed By: #### L 100.0500, L500.2500 ####[facility] [address] [place], [address] Basic Metabolic Profile (BMP) Normal 133-145 [facility] Comment on above: Result Comment: Canc elled via OM: Order cancelled - Patient discharged Performed By: #### L 100.0500, L500.2500 ####[facility] [address] [place], [address] CBC-Complete Blood Cnt No Di ffon 06-22-2024 HCT Normal 40-54 [facility] Comment on above: Result Comment: Canc elled via OM: Order cancelled - Patient discharged Performed By: #### L 100.0500, L500.2500 ####[facility] [address] [place], [address] HGB Normal 13.0-16.5 [facility] Comment on above: Result Comment: Canc elled via OM: Order cancelled - Patient discharged Performed By: #### L 100.0500, L500.2500 ####[facility] [address] [place], [address] MCH Normal 27.0-32.0 [facility] Comment on above: Result Comment: Canc elled via OM: Order cancelled - Patient discharged Performed By: #### L 100.0500, L500.2500 ####[facility] [address] [place], [address] MCHC Normal 32-36 [facility] Comment on above: Result Comment: Canc elled via OM: Order cancelled - Patient discharged Performed By: #### L 100.0500, L500.2500 ####[facility] [address] [place], [address] MCV Normal 80-94 [facility] Comment on above: Result Comment: Canc elled via OM: Order cancelled - Patient discharged Performed By: #### L 100.0500, L500.2500 ####[facility] [address] [place], [address] PLT Normal 150-450 [facility] Comment on above: Result Comment: Canc elled via OM: Order cancelled - Patient discharged Performed By: #### L 100.0500, L500.2500 ####[facility] [address] [place], [address] RBC Normal 4.6-6.2 [facility] Comment on above: Result Comment: Canc elled via OM: Order cancelled - Patient discharged Performed By: #### L 100.0500, L500.2500 ####[facility] [address] [place], [address] RDW CV Normal 11.6-14.6 [facility] Comment on above: Result Comment: Canc elled via OM: Order cancelled - Patient discharged Performed By: #### L 100.0500, L500.2500 ####[facility] [address] [place], [address] RDW SD Normal 35.1-43.9 [facility] Comment on above: Result Comment: Canc elled via OM: Order cancelled - Patient discharged Performed By: #### L 100.0500, L500.2500 ####[facility] [address] [place], [address] WBC Normal 4.4-11.0 [facility] Comment on above: Result Comment: Canc elled via OM: Order cancelled - Patient discharged Performed By: #### L 100.0500, L500.2500 ####[facility] [address] [place], [address] Basic Metabolic Profile (BMP )on 06-21-2024 BUN Normal -19 [facility] Comment on above: Result Comment: Canc elled via OM: Order cancelled - Patient discharged Performed By: #### L 500.2500, L100.0500 ####[facility] [address] [place], [address] BUN/CRE Normal 10-20 [facility] Comment on above: Result Comment: Canc elled via OM: Order cancelled - Patient discharged Performed By: #### L 500.2500, L100.0500 ####[facility] [address] [place], [address] Calcium Normal 7.6-11.0 [facility] Comment on above: Result Comment: Canc elled via OM: Order cancelled - Patient discharged Performed By: #### L 500.2500, L100.0500 ####[facility] [address] [place], [address] CL Normal 98-108 [facility] Comment on above: Result Comment: Canc elled via OM: Order cancelled - Patient discharged Performed By: #### L 500.2500, L100.0500 ####[facility] [address] [place], [address] CO2 Normal 21.0-32.0 [facility] Comment on above: Result Comment: Canc elled via OM: Order cancelled - Patient discharged Performed By: #### L 500.2500, L100.0500 ####[facility] [address] [place], [address] CREAT,SERUM Normal 0.70-1.20 [facility] Comment on above: Result Comment: Canc elled via OM: Order cancelled - Patient discharged Performed By: #### L 500.2500, L100.0500 ####[facility] [address] [place], [address] eGFR Normal >60 [facility] Comment on above: Result Comment: Canc elled via OM: Order cancelled - Patient discharged Performed By: #### L 500.2500, L100.0500 ####[facility] [address] [place], [address] GAP Normal 5-15 [facility] Comment on above: Result Comment: Canc elled via OM: Order cancelled - Patient discharged Performed By: #### L 500.2500, L100.0500 ####[facility] [address] [place], [address] GLU Normal 70-99 [facility] Comment on above: Result Comment: Canc elled via OM: Order cancelled - Patient discharged Performed By: #### L 500.2500, L100.0500 ####[facility] [address] [place], [address] Potassium Normal 3.3-5.1 [facility] Comment on above: Result Comment: Canc elled via OM: Order cancelled - Patient discharged Performed By: #### L 500.2500, L100.0500 ####[facility] [address] [place], [address] Basic Metabolic Profile (BMP) Normal 133-145 [facility] Comment on above: Result Comment: Canc elled via OM: Order cancelled - Patient discharged Performed By: #### L 500.2500, L100.0500 ####[facility] [address] [place], [address] CBC-Complete Blood Cnt No Di ffon 06-21-2024 HCT Normal 40-54 [facility] Comment on above: Result Comment: Canc elled via OM: Order cancelled - Patient discharged Performed By: #### L 500.2500, L100.0500 ####[facility] [address] [place], [address] HGB Normal 13.0-16.5 [facility] Comment on above: Result Comment: Canc elled via OM: Order cancelled - Patient discharged Performed By: #### L 500.2500, L100.0500 ####[facility] [address] [place], [address] MCH Normal 27.0-32.0 [facility] Comment on above: Result Comment: Canc elled via OM: Order cancelled - Patient discharged Performed By: #### L 500.2500, L100.0500 ####[facility] [address] [place], [address] MCHC Normal 32-36 [facility] Comment on above: Result Comment: Canc elled via OM: Order cancelled - Patient discharged Performed By: #### L 500.2500, L100.0500 ####[facility] [address] [place], [address] MCV Normal 80-94 [facility] Comment on above: Result Comment: Canc elled via OM: Order cancelled - Patient discharged Performed By: #### L 500.2500, L100.0500 ####[facility] [address] [place], [address] PLT Normal 150-450 [facility] Comment on above: Result Comment: Canc elled via OM: Order cancelled - Patient discharged Performed By: #### L 500.2500, L100.0500 ####[facility] [address] [place], [address] RBC Normal 4.6-6.2 [facility] Comment on above: Result Comment: Canc elled via OM: Order cancelled - Patient discharged Performed By: #### L 500.2500, L100.0500 ####[facility] [address] [place], [address] RDW CV Normal 11.6-14.6 [facility] Comment on above: Result Comment: Canc elled via OM: Order cancelled - Patient discharged Performed By: #### L 500.2500, L100.0500 ####[facility] [address] [place], [address] RDW SD Normal 35.1-43.9 [facility] Comment on above: Result Comment: Canc elled via OM: Order cancelled - Patient discharged Performed By: #### L 500.2500, L100.0500 ####[facility] [address] [place], [address] WBC Normal 4.4-11.0 [facility] Comment on above: Result Comment: Canc elled via OM: Order cancelled - Patient discharged Performed By: #### L 500.2500, L100.0500 ####[facility] [address] [place], [address] Anion gap in Serum or Plasma Ordered By: Donna Wolff on 06-20-2024 Anion gap [Moles/Vol] 14 mmol/L 5-15 [facility] BUN/creatinine ratioOrdered By: Donna Wolff on 06-20-2024 Urea nitrogen/Creatinine [Mass ratio] 27.2 mg/mg High 10-20 [facility] Basic Metabolic Profile (BMP )on 06-20-2024 BUN/CRE 27.2 RATIO High [address] [place] [address] Comment on above: Performed By: #### L 500.2500, L100.0500 ####[facility] [address] [place], [address] Calcium [Mass/Vol] 9.5 mg/dL Normal 7.6-11.0 [facility] Comment on above: Performed By: #### L 500.2500, L100.0500 ####[facility] [address] [place], [address] Chloride [Moles/Vol] 100 mmol/L Normal 98-108 [facility] Comment on above: Performed By: #### L 500.2500, L100.0500 ####[facility] [address] [place], [address] CO2 [Moles/Vol] 24.8 mmol/L Normal 21.0-32.0 [facility] Comment on above: Performed By: #### L 500.2500, L100.0500 ####[facility] [address] [place], [address] Creatinine [Mass/Vol] 1.07 mg/dL Normal 0.70-1.20 [facility] Comment on above: Performed By: #### L 500.2500, L100.0500 ####[facility] [address] [place], [address] ECRCL 74.28 ml/min Normal 50-250 [facility] Comment on above: Performed By: #### L 500.2500, L100.0500 ####[facility] [address] [place], [address] GAP 14 Normal 5-15 [facility] Comment on above: Performed By: #### L 500.2500, L100.0500 ####[facility] [address] [place], [address] GFR/1.73 sq M.predicted among non-blacks MDRD (S/P/Bld) [Vol rate/Area] 77 mL/min/{1.73_m2} Normal >60 [facility] Comment on above: Result Comment: mL/m in/1.73m2 CKD-EPI Creatinine Equation (2020) Performed By: #### L 500.2500, L100.0500 ####[facility] [address] [place], [address] Glucose [Mass/Vol] 110 mg/dL High 70-99 [facility] Comment on above: Performed By: #### L 500.2500, L100.0500 ####[facility] [address] [place], [address] Potassium [Moles/Vol] 3.8 mmol/L Normal 3.3-5.1 [facility] Comment on above: Performed By: #### L 500.2500, L100.0500 ####[facility] [address] [place], [address] Sodium [Moles/Vol] 138 mmol/L Normal 133-145 [facility] Comment on above: Performed By: #### L 500.2500, L100.0500 ####[facility] [address] [place], [address] Urea nitrogen [Mass/Vol] 29 mg/dL High 4-19 [facility] Comment on above: Performed By: #### L 500.2500, L100.0500 ####[facility] [address] [place], [address] Bedside Glucoseon 06-20-2024 FINGERSTICK GLU 127 mg/dL High 74-106 [facility] Comment on above: Result Comment: SNEHA DUNCAN OF PATIENT CARE PER NURSING PROTOCOL Performed By: #### L 501.080 ####[facility] [address] [place], [address] CBC-Complete Blood Cnt No Di ffon 06-20-2024 Erythrocyte distribution width (RBC) [Ratio] 13.0 % Normal 11.6-14.6 [facility] Comment on above: Performed By: #### L 500.2500, L100.0500 ####[facility] [address] [place], [address] Hematocrit (Bld) [Volume fraction] 50.5 % Normal 40-54 [facility] Comment on above: Performed By: #### L 500.2500, L100.0500 ####[facility] [address] [place], [address] Hemoglobin (Bld) [Mass/Vol] 16.8 g/dL High 13.0-16.5 [facility] Comment on above: Performed By: #### L 500.2500, L100.0500 ####[facility] [address] [place], [address] MCH (RBC) [Entitic mass] 30.8 pg Normal 27.0-32.0 [facility] Comment on above: Performed By: #### L 500.2500, L100.0500 ####[facility] [address] [place], [address] MCHC (RBC) [Mass/Vol] 33.3 g/dL Normal 32-36 [facility] Comment on above: Performed By: #### L 500.2500, L100.0500 ####[facility] [address] [place], [address] MCV (RBC) [Entitic vol] 92.5 fL Normal 80-94 [facility] Comment on above: Performed By: #### L 500.2500, L100.0500 ####[facility] [address] [place], [address] Platelet mean volume (Bld) [Entitic vol] 10.1 fL Normal 6.2-12.0 [facility] Comment on above: Performed By: #### L 500.2500, L100.0500 ####[facility] [address] [place], [address] Platelets (Bld) [#/Vol] 295 10*3/uL Normal 150-450 [facility] Comment on above: Performed By: #### L 500.2500, L100.0500 ####[facility] [address] [place], [address] RBC (Bld) [#/Vol] 5.46 10*6/uL Normal 4.6-6.2 [facility] Comment on above: Performed By: #### L 500.2500, L100.0500 ####[facility] [address] [place], [address] RDW SD 43.8 fl Normal 35.1-43.9 [facility] Comment on above: Performed By: #### L 500.2500, L100.0500 ####[facility] [address] [place], [address] WBC (Bld) [#/Vol] 14.2 10*3/uL High 4.4-11.0 [facility] Comment on above: Performed By: #### L 500.2500, L100.0500 ####[facility] [address] [place], [address] Carbon dioxide, total [Moles /volume] in Central venous bloodOrdered By: Donna Wolff on 06-20-2024 CO2 [Moles/Vol] 24.8 mmol/L 21.0-32.0 [facility] Chloride assayOrdered By: Nilson Wolff on 06-20-2024 Chloride [Moles/Vol] 100 mmol/L 98-108 [facility] Discharge Instructionon 06-04 Discharge Instruction Normal [facility] Erythrocyte distribution wid th ratioOrdered By: Donna Wolff on 06-20-2024 Erythrocyte distribution width (RBC) [Ratio] 13.0 % 11.6-14.6 [facility] Erythrocyte distribution wid th standard deviationOrdered By: Donna Wolff on 06-20-2024 Erythrocyte distribution width (RBC) [Ratio] 43.8 fl 35.1-43.9 [facility] Glomerular filtration rate ( GFR) estimation/1.73 sq m using serum, plasma, or whole bOrdered By: Donna Wolff on 06-20-2024 GFR/1.73 sq M.predicted among non-blacks MDRD (S/P/Bld) [Vol rate/Area] 77 mL/min/{1.73_m2} >60 [facility] de[facility]dered By: Donna Wolff on 06-20-2024 Glucose [Mass/Vol] 127 mg/dL High 74-106 [facility] Hematocrit Auto (Bld) [Volum e fraction]Ordered By: Donna Wolff on 06-20-2024 Hematocrit (Bld) [Volume fraction] 50.5 % 40-54 [facility] Hemoglobin measurementOrdere d By: Donna Wolff on 06-20-2024 Hemoglobin (Bld) [Mass/Vol] 16.8 g/dL High 13.0-16.5 [facility] MCV (mean corpuscular volume ) determinationOrdered By: Donna Wolff on 06-20-2024 MCV (RBC) [Entitic vol] 92.5 fL 80-[address] [facility] Mean corpuscular hemoglobin (MCH) determinationOrdered By: Donna Wolff on 06-20-2024 MCH (RBC) [Entitic mass] 30.8 pg 27.0-32.0 [facility] Platelet countOrdered By: Nilson Wolff on 06-20-2024 Platelets (Bld) [#/Vol] 295 10*3/uL 150-450 [facility] Potassium measurement (mass/ volume)Ordered By: Donna Wolff on 06-20-2024 Potassium (Unsp spec) [Mass/Vol] 3.8 mmol/L 3.3-5.1 [facility] RBC Auto (Bld) [#/Vol]Ordere d By: Donna Wolff on 06-20-2024 RBC (Bld) [#/Vol] 5.46 10*6/uL 4.6-6.2 [facility] Serum creatinine measurement (mass/volume)Ordered By: Donna Wolff on 06-20-2024 Creatinine [Mass/Vol] 1.07 mg/dL 0.70-1.20 [facility] Serum glucose measurement (m ass/volume)Ordered By: Donna Wolff on 06-20-2024 Glucose [Mass/Vol] 110 mg/dL High 70-99 [facility] Serum or plasma calcium brenda urement (mass/volume)Ordered By: Donna Wolff on 06-20-2024 Calcium [Mass/Vol] 9.5 mg/dL 7.6-11.0 [facility] Serum or plasma urea nitroge n measurement (mass/volume)Ordered By: Donna Wolff on 06-20-2024 Urea nitrogen [Mass/Vol] 29 mg/dL High 4-19 [facility] Sodium levelOrdered By: Gretta Wolff on 06-20-2024 Sodium [Moles/Vol] 138 mmol/L 133-145 [facility] Stress Reporton 06-20-2024 Stress Report Normal [facility] White blood cell (WBC) count Ordered By: Donna Wolff on 06-20-2024 WBC (Bld) [#/Vol] 14.2 10*3/uL High 4.4-11.0 [facility] Absolute lymphocyte countOrd ered By: Steve Donald on 06-19-2024 Lymphocytes Auto (Unsp spec) [#/Vol] 1.12 10*3/uL 0.83-4.51 [facility] Automated lymphocyte count a s percentage of total leukocytesOrdered By: Steve Donald on 06-19-2024 Lymphocytes/100 WBC Auto (Unsp spec) 9.8 % Low 19-41 [facility] Basophil percentageOrdered B y: Steve Donald on 06-19-2024 Basophils/100 WBC (Bld) 0.1 % 0-1 [facility] Bedside Glucoseon 06-19-2024 FINGERSTICK GLU 220 mg/dL High 74-106 [facility] Comment on above: Result Comment: SNEHA GEMENT OF PATIENT CARE PER NURSING PROTOCOL Performed By: #### L 501.080 ####[facility] [address] [facility] [address] FINGERSTICK GLU 431 mg/dL High [address] [place] [address] Comment on above: Result Comment: SNEHA GEMENT OF PATIENT CARE PER NURSING PROTOCOL Performed By: #### L 501.080 ####[facility] [address] [facility] [address] FINGERSTICK GLU 387 mg/dL High [address] [place] [address] Comment on above: Result Comment: SNEHA GEMENT OF PATIENT CARE PER NURSING PROTOCOL Performed By: #### L 501.080 ####[facility] [address] [facility] [address] FINGERSTICK GLU 292 mg/dL High [facility]106 [facility] Comment on above: Result Comment: SNEHA GEMENT OF PATIENT CARE PER NURSING PROTOCOL Performed By: #### L 501.080 ####[facility] [address] [place], [address] Bilirubin, totalOrdered By: Steve Donald on 06-19-2024 Bilirubin [Mass/Vol] 0.63 mg/dL 0.00-1.30 [facility] CBC W/Diff, Automatedon 06-04 Absolute Lymph 1.12 X10 3/uL Normal 0.83-4.51 [facility] Comment on above: Performed By: #### L 501.2300, L501.9985, L500.4050, L100.0100 ####[facility] [address] [place], [address] Absolute Neut 9.8 X10 3/uL High 2.0-7.7 [facility] Comment on above: Performed By: #### L 501.2300, L501.9985, L500.4050, L100.0100 ####[facility] [address] [place], [address] Basophils/100 WBC (Bld) 0.1 % Normal 0-[address] [facility] Comment on above: Performed By: #### L 501.2300, L501.9985, L500.4050, L100.0100 ####[facility] [address] [place], [address] Eosinophils/100 WBC (Bld) 0.0 % Normal 0-5 [facility] Comment on above: Performed By: #### L 501.2300, L501.9985, L500.4050, L100.0100 ####[facility] [address] [place], [address] Erythrocyte distribution width (RBC) [Ratio] 12.8 % Normal 11.6-14.6 [facility] Comment on above: Performed By: #### L 501.2300, L501.9985, L500.4050, L100.0100 ####[facility] [address] [place], [address] Hematocrit (Bld) [Volume fraction] 49.9 % Normal 40-54 [facility] Comment on above: Performed By: #### L 501.2300, L501.9985, L500.4050, L100.0100 ####[facility] [address] [place], [address] Hemoglobin (Bld) [Mass/Vol] 16.8 g/dL High 13.0-16.5 [facility] Comment on above: Performed By: #### L 501.2300, L501.9985, L500.4050, L100.0100 ####[facility] [address] [place], [address] IG% 0.700 Normal 0.0-0.9 [facility] Comment on above: Result Comment: IG% - Immature Granulocytes (promyelocytes, myelocytes andmetamyelocytes) > 1% indicates that a LEFT SHIFT is Present. Performed By: #### L 501.2300, L501.9985, L500.4050, L100.0100 ####[facility] [address] [place], [address] Lymphocytes/100 WBC (Bld) 9.8 % Low 19-41 [facility] Comment on above: Performed By: #### L 501.2300, L501.9985, L500.4050, L100.0100 ####[facility] [address] [place], [address] MCH (RBC) [Entitic mass] 31.3 pg Normal 27.0-32.0 [facility] Comment on above: Performed By: #### L 501.2300, L501.9985, L500.4050, L100.0100 ####[facility] [address] [place], [address] MCHC (RBC) [Mass/Vol] 33.7 g/dL Normal 32-36 [facility] Comment on above: Performed By: #### L 501.2300, L501.9985, L500.4050, L100.0100 ####[facility] [address] [place], [address] MCV (RBC) [Entitic vol] 92.9 fL Normal 80-[address] [facility] Comment on above: Performed By: #### L 501.2300, L501.9985, L500.4050, L100.0100 ####[facility] [address] [place], [address] Monocytes/100 WBC (Bld) 3.2 % Normal 0-10 [facility] Comment on above: Performed By: #### L 501.2300, L501.9985, L500.4050, L100.0100 ####[facility] [address] [place], [address] Neutrophils/100 WBC (Bld) 86.2 % High 47-70 [facility] Comment on above: Performed By: #### L 501.2300, L501.9985, L500.4050, L100.0100 ####[facility] [address] [place], [address] Nucleated RBC (Bld) [#/Vol] 0 10*3/uL Normal 0-5 [facility] Comment on above: Performed By: #### L 501.2300, L501.9985, L500.4050, L100.0100 ####[facility] [address] [place], [address] Platelet mean volume (Bld) [Entitic vol] 10.4 fL Normal 6.2-12.0 [facility] Comment on above: Performed By: #### L 501.2300, L501.9985, L500.4050, L100.0100 ####[facility] [address] [place], [address] Platelets (Bld) [#/Vol] 290 10*3/uL Normal 150-450 [facility] Comment on above: Performed By: #### L 501.2300, L501.9985, L500.4050, L100.0100 ####[facility] [address] [place], [address] RBC (Bld) [#/Vol] 5.37 10*6/uL Normal 4.6-6.2 [facility] Comment on above: Performed By: #### L 501.2300, L501.9985, L500.4050, L100.0100 ####[facility] [address] [place], [address] RDW SD 43.8 fl Normal 35.1-43.9 [facility] Comment on above: Performed By: #### L 501.2300, L501.9985, L500.4050, L100.0100 ####[facility] [address] [place], [address] WBC (Bld) [#/Vol] 11.4 10*3/uL High 4.4-11.0 [facility] Comment on above: Performed By: #### L 501.2300, L501.9985, L500.4050, L100.0100 ####[facility] [address] [place], [address] Chest 1 View (Portable)on Chest 1 View (Portable) Normal [facility] Comprehensive Metabolic Prof ilon 06-19-2024 GAP 17 High 5-15 [facility] Comment on above: Performed By: #### L 501.2300, L501.9985, L500.4050, L100.0100 ####[facility] [address] [place], [address] Albumin [Mass/Vol] 4.1 g/dL Normal 3.4-4.8 [facility] Comment on above: Performed By: #### L 501.2300, L501.9985, L500.4050, L100.0100 ####[facility] [address] [place], [address] Albumin/Globulin [Mass ratio] 1.2 {ratio} Normal 0.9-2.4 [facility] Comment on above: Performed By: #### L 501.2300, L501.9985, L500.4050, L100.0100 ####[facility] [address] [place], [address] ALK PHOS 89 U/L Normal 40-129 [facility] [facility] Comment on above: Performed By: #### L 501.2300, L501.9985, L500.4050, L100.0100 ####[facility] [address] [place], [address] ALT [Catalytic activity/Vol] 38 U/L Normal <=46 [facility] Comment on above: Performed By: #### L 501.2300, L501.9985, L500.4050, L100.0100 ####[facility] [address] [place], [address] AST [Catalytic activity/Vol] 26 U/L Normal <=37 [facility] Comment on above: Performed By: #### L 501.2300, L501.9985, L500.4050, L100.0100 ####[facility] [address] [place], [address] Bilirubin [Mass/Vol] 0.63 mg/dL Normal 0.00-1.30 [facility] Comment on above: Performed By: #### L 501.2300, L501.9985, L500.4050, L100.0100 ####[facility] [address] [place], [address] BUN/CRE 24.5 RATIO High 10-20 [facility] Comment on above: Performed By: #### L 501.2300, L501.9985, L500.4050, L100.0100 ####[facility] [address] [place], [address] Calcium [Mass/Vol] 9.6 mg/dL Normal 7.6-11.0 [facility] Comment on above: Performed By: #### L 501.2300, L501.9985, L500.4050, L100.0100 ####[facility] [address] [place], [address] Chloride [Moles/Vol] 97 mmol/L Low 98-108 [facility] Comment on above: Performed By: #### L 501.2300, L501.9985, L500.4050, L100.0100 ####[facility] [address] [place], [address] CO2 [Moles/Vol] 19.8 mmol/L Low 21.0-32.0 [facility] Comment on above: Performed By: #### L 501.2300, L501.9985, L500.4050, L100.0100 ####[facility] [address] [place], [address] Creatinine [Mass/Vol] 1.12 mg/dL Normal 0.70-1.20 [facility] Comment on above: Performed By: #### L 501.2300, L501.9985, L500.4050, L100.0100 ####[facility] [address] [place], [address] ECRCL 70.97 ml/min Normal 50-250 [facility] Comment on above: Performed By: #### L 501.2300, L501.9985, L500.4050, L100.0100 ####[facility] [address] [place], [address] GFR/1.73 sq M.predicted among non-blacks MDRD (S/P/Bld) [Vol rate/Area] 73 mL/min/{1.73_m2} Normal >60 [facility] Comment on above: Result Comment: mL/m in/1.73m2 CKD-EPI Creatinine Equation (2020) Performed By: #### L 501.2300, L501.9985, L500.4050, L100.0100 ####[facility] [address] [place], [address] Globulin (S) [Mass/Vol] 3.5 g/dL Normal 2.2-4.2 [facility] Comment on above: Performed By: #### L 501.2300, L501.9985, L500.4050, L100.0100 ####[facility] [address] [place], [address] Glucose [Mass/Vol] 324 mg/dL High 70-99 [facility] Comment on above: Performed By: #### L 501.2300, L501.9985, L500.4050, L100.0100 ####[facility] [address] [place], [address] Potassium [Moles/Vol] 4.3 mmol/L Normal 3.3-5.1 [facility] Comment on above: Performed By: #### L 501.2300, L501.9985, L500.4050, L100.0100 ####[facility] [address] [place], [address] Sodium [Moles/Vol] 134 mmol/L Normal 133-145 [facility] Comment on above: Performed By: #### L 501.2300, L501.9985, L500.4050, L100.0100 ####[facility] [address] [place], [address] T PROT 7.6 g/dL Normal 5.9-8.4 [facility] Comment on above: Performed By: #### L 501.2300, L501.9985, L500.4050, L100.0100 ####[facility] [address] [place], [address] Urea nitrogen [Mass/Vol] 27 mg/dL High 4-19 [facility] Comment on above: Performed By: #### L 501.2300, L501.9985, L500.4050, L100.0100 ####[facility] [address] [place], [address] Eosinophil percentageOrdered By: Steve Donald on 06-19-2024 Eosinophils/100 WBC (Bld) 0.0 % 0-5 [facility] Hemoglobin A1con 06-19-2024 HbA1c (Bld) [Mass fraction] 12.4 % Normal <=5.6 [facility] Comment on above: Performed By: #### L 501.2300, L501.9985, L500.4050, L100.0100 ####[facility] [address] [place], [address] Hemoglobin A1c percentageOrd ered By: Steve Donald on 06-19-2024 HbA1c (Bld) [Mass fraction] 12.4 % >5.7 [facility] Immature granulocytes/100 WB C Auto (Bld)Ordered By: Steve Donald on 06-19-2024 Immature granulocytes/100 WBC (Bld) 0.700 % 0.0-0.9 [facility] Monocyte percentageOrdered B y: Steve Donald on 06-19-2024 Monocytes/100 WBC (Bld) 3.2 % 0-[address] [facility] Neutrophil percentageOrdered By: Steve Donald on 06-19-2024 Neutrophils/100 WBC (Bld) 86.2 % High 47-70 [facility] No Panel InformationOrdered By: Steve Donald on 06-19-2024 26 U/L <38 [facility] Phosphoruson 06-19-2024 Phosphate [Mass/Vol] 4.4 mg/dL Normal 2.7-4.5 [facility] Comment on above: Performed By: #### L 501.2300, L501.9985, L500.4050, L100.0100 ####[facility] [address] [place], [address] Serum globulin measurementOr dered By: Steve Donald on 06-19-2024 Globulin (S) [Mass/Vol] 3.5 g/dL 2.2-4.[address] [facility] Serum or plasma alanine martino otransferase (ALT) measurementOrdered By: Steve Donald on 06-19-2024 ALT [Catalytic activity/Vol] 38 U/L <47 [facility] Serum or plasma albumin brenda urement (mass/volume)Ordered By: Steve Donald on 06-19-2024 Albumin [Mass/Vol] 4.1 g/dL 3.4-4.8 [facility] Serum or plasma albumin/glob ulin mass ratioOrdered By: Steve Donald on 06-19-2024 Albumin/Globulin [Mass ratio] 1.2 {ratio} 0.9-2.4 [facility] Serum or plasma alkaline yulia sphatase measurementOrdered By: Steve Donald on 06-19-2024 ALP [Catalytic activity/Vol] 89 U/L 40-129 [facility] Total proteinOrdered By: Sidney Donald on 06-19-2024 Protein [Mass/Vol] 7.6 g/dL 5.9-8.4 [facility] Assessment of wrist artery p atency prior to arterial punctureOrdered By: Steve Donald on 06-18-2024 Arterial patency Wrist artery --pre arterial puncture Positive [facility] Bedside Glucoseon 06-18-2024 FINGERSTICK GLU 434 mg/dL High 74-106 [facility] Comment on above: Result Comment: SNEHA DUNCAN OF PATIENT CARE PER NURSING PROTOCOL Performed By: #### L 501.080 ####[facility] [address] [place], [address] FINGERSTICK GLU 429 mg/dL High 74-106 [facility] Comment on above: Result Comment: Dr Manjit solis FollowedMANAGEMENT OF PATIENT CARE PER NURSING PROTOCOL Performed By: #### L 501.080 ####[facility] [address] [place], [address] FINGERSTICK GLU 321 mg/dL High 74-106 [facility] Comment on above: Result Comment: SNEHA GEMENT OF PATIENT CARE PER NURSING PROTOCOL Performed By: #### L 501.080 ####[facility] [address] [place], [address] FINGERSTICK GLU 282 mg/dL High 74-106 [facility] Comment on above: Result Comment: SNEHA GEMENT OF PATIENT CARE PER NURSING PROTOCOL Performed By: #### L 501.080 ####[facility] [address] [place], [address] Bilirubin Test strip Ql (U)O rdered By: Steve Donald on 06-18-2024 Bilirubin Ql (U) Negative Negative [facility]Y [facility] Positive Normal [facility] Comment on above: Performed By: #### L 9000.0800 ####[facility] [address] [place], [address] Base excess Calc (Bld) [Moles/Vol] 2 mmol/L Normal -2 to +2 [facility] Comment on above: Performed By: #### L 9000.0800 ####[facility] [address] [place], [address] Blood Gas Type ART Normal [facility] Comment on above: Performed By: #### L 9000.0800 ####[facility] [address] [place], [address] CO2 [Moles/Vol] 28 mmol/L Normal [facility] Comment on above: Performed By: #### L 9000.0800 ####[facility] [address] [place], [address] Comment 17/11 12 30% Normal [facility] Comment on above: Performed By: #### L 9000.0800 ####[facility] [address] [place], [address] FI02 30.0 Normal [facility] Comment on above: Performed By: #### L 9000.0800 ####[facility] [address] [place], [address] HCO3 (Bld) [Moles/Vol] 26.7 mmol/L High 22-[address] [facility] Comment on above: Performed By: #### L 9000.0800 ####[facility] [address] [place], [address] Mode Not entered Normal [facility] Comment on above: Performed By: #### L 9000.0800 ####[facility] [address] [place], [address] O2 Delivery Dev BiPAP Normal [facility] Comment on above: Performed By: #### L 9000.0800 ####[facility] [address] [place], [address] pCO2 41.5 mmHg Normal 35-45 [facility] Comment on above: Performed By: #### L 9000.0800 ####[facility] [address] [place], [address] pH (Bld) 7.42 [pH] Normal 7.35-7.45 [facility] Comment on above: Performed By: #### L 9000.0800 ####[facility] [address] [place], [address] PO2 73 mmHG Low 75-100 [facility] Comment on above: Performed By: #### L 9000.0800 ####[facility] [address] [place], [address] SITE R Radial Normal [facility] Comment on above: Performed By: #### L 9000.0800 ####[facility] [address] [place], [address] SO2 95 Normal 95-99 [facility] Comment on above: Performed By: #### L 9000.0800 ####[facility] [address] [place], [place], [id number] Blood base excess determinat ionOrdered By: Steve Donald on 06-18-2024 Base excess Calc (BldV) [Moles/Vol] 2 mmol/L -2-2 [facility] Blood bicarbonate measuremen tOrdered By: Steve Donald on 06-18-2024 HCO3 (Bld) [Moles/Vol] 26.7 mmol/L High 22-[address] [facility] CTA Chest W/WO Contraston CTA Chest W/WO Contrast Normal W [facility] Consultation - Cardiologyon 06-18-2024 Consultation - Cardiology Normal [facility] Echo Complete W/ Contraston 06-18-2024 Echo Complete W/ Contrast Normal [facility] Emergency Department Summary on 06-18-2024 Emergency Department Summary Normal [facility] H AND P Exam - Hospitaliston 06-18-2024 H&P Exam - Hospitalist Normal [facility] Influenza virus A and B and SARS-CoV-2 (COVID-19) and Respiratory syncytial virus RNAOrdered By: Jevon Osorio on 06-18-2024 SARS-CoV-2 (COVID-19) RNA HAYDER+probe Ql (Unsp spec) [facility] Ketones Test strip Ql (U)Ord ered By: Steve Donald on 06-18-2024 Ketones Ql (U) Negative Negative [facility] L499.0042on 06-18-2024 Trop T High Sen 84 ng/L Invalid Interpretation Code <=22 [facility] Comment on above: Result Comment: Crit ical Result(s) Called at: 0219 by:??TAYLORURNS TO EFINKResults read back by same. Performed By: #### L 499.0042 ####[facility] [address] [place], [address] L499.0043on 06-18-2024 Trop T High Sen 88 ng/L Invalid Interpretation Code <=22 [facility] Comment on above: Result Comment: Crit ical Result(s) Called at 0334: by: NARAYAN TOEAFFOLTER??Results read back by same. Performed By: #### L 499.0043 ####[facility] [address] [place], [address] L503.7505on 06-18-2024 Natriuretic peptide B (Bld) [Mass/Vol] 2490 pg/mL High <=900 [facility] Comment on above: Result Comment: Hear t Failure Unlikely: < 300 pg/mLHeart Failure Likely< 50 Years: > 450 pg/mL50-75 Years: > 900 pg/mL>75 Years: > 1800 pg/mL Performed By: #### L 503.7505 ####[facility] [address] [place], [address] M100.678on 06-18-2024 M100.678 SARS-CoV-2 (COVID 19 ) Negative INFLUENZA A Negative INFLUENZA B Negative RSV PCR Negative Normal [facility] Comment on above: Performed By: #### M 100.678 ####[facility] [address] [place], [address] Magnesiumon 06-18-2024 Magnesium [Mass/Vol] 2.0 mg/dL Normal 1.5-2.2 [facility] Comment on above: Performed By: #### L 501.5200, L501.9520 ####[facility] [address] [place], [address] Magnesium measurement (mass/ volume)Ordered By: Steve Donald on 06-18-2024 Magnesium (Unsp spec) [Mass/Vol] 2.0 mg/dL 1.5-2.2 [facility] Measurement, pHOrdered By: Jovana Donald on 06-18-2024 pH (Unsp spec) 7.42 [pH] 7.35-7.45 [facility] Mucus LM Ql (Urine sed)Order ed By: Steve Donald on 06-18-2024 Mucus Ql (Urine sed) 0 SEEN /hpf [facility] Nitrite Test strip Ql (U)Ord ered By: Steve Donald on 06-18-2024 Nitrite Ql (U) Negative Negative [facility] No Panel InformationOrdered By: Steve Donald on 06-18-2024 ART [facility] R Radial [facility] Not entered [facility] BiPAP [facility] 17/11 12 30% [facility] Protein Test strip Ql (U)Ord ered By: Steve Donald on 06-18-2024 Protein Ql (U) Negative Negative [facility] RESPIRATORY PANEL MOLECULARo n 06-18-2024 RP PANEL Normal [facility] Comment on above: Performed By: #### M 100.638 ####[facility] [address] [place], [place], [id number] Respiratory pathogens detect ion panel by molecular detection methodOrdered By: Steve Donald on 06-18-2024 Respiratory pathogens DNA and RNA panel HAYDER+probe (Resp) [facility] Squamous epithelial cells de tection in urine sediment by light microscopyOrdered By: Steve Donald on 06-18-2024 Epithelial cells.squamous LM Ql (Urine sed) 0-5 SEEN /hpf 0-5 [facility] TSH DL <= 0.005 mIU/L QnOrde red By: Steve Donald on 06-18-2024 TSH Qn 0.897 uIU/mL 0.300-4.200 [facility] Thyroid Stim Hormone (TSH)on 06-18-2024 TSH 0.897 uIU/mL Normal 0.300-4.200 [facility] Comment on above: Performed By: #### L 501.5200, L501.9520 ####[facility] [address] [place], [address] Total carbon dioxide measure mentOrdered By: Steve Donald on 06-18-2024 CO2 [Moles/Vol] 28 mmol/L [facility] Troponin T.cardiac [Mass/vol ume] in Serum or Plasma by High sensitivity methodOrdered By: Jevon Osorio on 06-18-2024 Troponin T.cardiac High sensitivity method [Mass/Vol] 88 ng/L High <22 [facility] Troponin T.cardiac High sensitivity method [Mass/Vol] 84 ng/L High <22 [facility] Urinalysis, Completeon 06-18 BACTERIA RARE Normal None Seen [facility] Comment on above: Order Comment: CLEAN CATCH Performed By: #### L 400.0001 ####[facility] [address] [place], [address] EPI,SQUAMOUS 0-5 SEEN Normal 0-5 [facility] Comment on above: Order Comment: CLEAN CATCH Performed By: #### L 400.0001 ####[facility] [address] [place], [address] RBC 0 SEEN Normal 0-5 [facility] Comment on above: Order Comment: CLEAN CATCH Performed By: #### L 400.0001 ####[facility] [address] [place], [address] WBC 0-5 SEEN Normal 0-5 [facility] Comment on above: Order Comment: CLEAN CATCH Performed By: #### L 400.0001 ####[facility] [address] [place], [address] BILIRUBIN URINE Negative Normal Negative [facility] Comment on above: Order Comment: CLEAN CATCH Performed By: #### L 400.0001 ####[facility] [address] [place], [address] Clarity (U) Clear Normal Clear [facility] Comment on above: Order Comment: CLEAN CATCH Performed By: #### L 400.0001 ####[facility] [address] [place], [address] Color (U) Yellow Normal Yellow [facility] Comment on above: Order Comment: CLEAN CATCH Performed By: #### L 400.0001 ####[facility] [address] [place], [address] GLUCOSE, UR 1000 mg/dl Abnormal Normal [facility] Comment on above: Order Comment: CLEAN CATCH Performed By: #### L 400.0001 ####[facility] [address] [place], [address] KETONE UR Negative Normal Negative [facility] Comment on above: Order Comment: CLEAN CATCH Performed By: #### L 400.0001 ####[facility] [address] [place], [address] LEUK ESTERASE Negative Normal Negative [facility] Comment on above: Order Comment: CLEAN CATCH Performed By: #### L 400.0001 ####[facility] [address] [place], [address] Nitrite Ql (U) Negative Normal Negative [facility] Comment on above: Order Comment: CLEAN CATCH Performed By: #### L 400.0001 ####[facility] [address] [place], [address] OCCULT BLOOD-UR Negative Normal Negative [facility] Comment on above: Order Comment: CLEAN CATCH Performed By: #### L 400.0001 ####[facility] [address] [place], [address] pH UR 6.0 Normal 5.0 - 8.0 [facility] Comment on above: Order Comment: CLEAN CATCH Performed By: #### L 400.0001 ####[facility] [address] [place], [address] PROT DIPSTX Negative Normal Negative [facility] Comment on above: Order Comment: CLEAN CATCH Performed By: #### L 400.0001 ####[facility] [address] [place], [address] SP.GR. DIPSTX 1.010 Normal 1.002-1.030 [facility] Comment on above: Order Comment: CLEAN CATCH Performed By: #### L 400.0001 ####[facility] [address] [place], [address] UROBILI Normal Normal Normal [facility] Comment on above: Order Comment: CLEAN CATCH Performed By: #### L 400.0001 ####[facility] [address] [place], [place], [address] Mucus Ql (Urine sed) 0 SEEN Normal [facility] Comment on above: Order Comment: CLEAN CATCH Performed By: #### L 400.0001 ####[facility] [address] [place], [place], [address] Urine clarityOrdered By: Sidney Donald on 06-18-2024 Clarity (U) Clear Clear [facility] Urine color determinationOrd ered By: Steve Donald on 06-18-2024 Color (U) Yellow Yellow [facility] Urine glucose detectionOrder ed By: Steve Donald on 06-18-2024 Glucose Ql (U) 1000 mg/dl High Normal [facility] Urine leukocyte esterase det ection by dipstickOrdered By: Steve Donald on 06-18-2024 Leukocyte esterase Test strip Ql (U) Negative Negative [facility] Urine pHOrdered By: Steve caraballo on 06-18-2024 pH (U) 6.0 [pH] 5.0 - 8.0 [facility] Urine sediment bacteria coun t by microscopy (number/high power field)Ordered By: Steve Donald on 06-18-2024 Bacteria LM.HPF (Urine sed) [#/Area] RARE /hpf None Seen [facility] Urine specific gravity measu rementOrdered By: Steve Donald on 06-18-2024 Specific gravity (U) [Rel density] 1.010 1.002-1.030 [facility] Urine urobilinogen measureme ntOrdered By: Steve Donald on 06-18-2024 Urobilinogen Ql (U) Normal mg/dl Normal [facility] White blood cell countOrdere d By: Steve Donald on 06-18-2024 White blood cell count 0-5 SEEN /hpf 0-5 [facility] 12 Lead EKGon 06-17-2024 12 Lead EKG Normal [facility] Basic Metabolic Profile (BMP )on 06-17-2024 BUN/CRE 18.7 RATIO Normal 10-20 [facility] Comment on above: Performed By: #### L 100.0100, L500.2500, L501.4021 ####[facility] [address] [place], [address] Calcium [Mass/Vol] 9.4 mg/dL Normal 7.6-11.0 [facility] Comment on above: Performed By: #### L 100.0100, L500.2500, L501.4021 ####[facility] [address] [place], [address] Chloride [Moles/Vol] 100 mmol/L Normal 98-108 [facility] Comment on above: Performed By: #### L 100.0100, L500.2500, L501.4021 ####[facility] [address] [place], [address] CO2 [Moles/Vol] 21.0 mmol/L Normal 21.0-32.0 [facility] Comment on above: Performed By: #### L 100.0100, L500.2500, L501.4021 ####[facility] [address] [place], [address] Creatinine [Mass/Vol] 0.94 mg/dL Normal 0.70-1.20 [facility] Comment on above: Performed By: #### L 100.0100, L500.2500, L501.4021 ####[facility] [address] [place], [address] GAP 14 Normal 5-15 [facility] Comment on above: Performed By: #### L 100.0100, L500.2500, L501.4021 ####[facility] [address] [place], [address] GFR/1.73 sq M.predicted among non-blacks MDRD (S/P/Bld) [Vol rate/Area] 91 mL/min/{1.73_m2} Normal >60 [facility] Comment on above: Result Comment: mL/m in/1.73m2 CKD-EPI Creatinine Equation (2020) Performed By: #### L 100.0100, L500.2500, L501.4021 ####[facility] [address] [place], [address] Glucose [Mass/Vol] 438 mg/dL High 70-99 [facility] Comment on above: Performed By: #### L 100.0100, L500.2500, L501.4021 ####[facility] [address] [place], [address] Potassium [Moles/Vol] 4.5 mmol/L Normal 3.3-5.1 [facility] Comment on above: Performed By: #### L 100.0100, L500.2500, L501.4021 ####[facility] [address] [place], [address] Sodium [Moles/Vol] 134 mmol/L Normal 133-145 [facility] Comment on above: Performed By: #### L 100.0100, L500.2500, L501.4021 ####[facility] [address] [place], [address] Urea nitrogen [Mass/Vol] 18 mg/dL Normal 4-19 [facility] Comment on above: Performed By: #### L 100.0100, L500.2500, L501.4021 ####[facility] [address] [place], [address] CBC W/Diff, Automatedon 06-04 Absolute Lymph 2.17 X10 3/uL Normal 0.83-4.51 [facility] Comment on above: Performed By: #### L 100.0100, L500.2500, L501.4021 ####[facility] [address] [place], [address] Absolute Neut 2.9 X10 3/uL Normal 2.0-7.7 [facility] Comment on above: Performed By: #### L 100.0100, L500.2500, L501.4021 ####[facility] [address] [place], [address] Basophils/100 WBC (Bld) 0.3 % Normal 0-[address] [facility] Comment on above: Performed By: #### L 100.0100, L500.2500, L501.4021 ####[facility] [address] [place], [address] Eosinophils/100 WBC (Bld) 2.2 % Normal 0-5 [facility] Comment on above: Performed By: #### L 100.0100, L500.2500, L501.4021 ####[facility] [address] [place], [address] Erythrocyte distribution width (RBC) [Ratio] 13.1 % Normal 11.6-14.6 [facility] Comment on above: Performed By: #### L 100.0100, L500.2500, L501.4021 ####[facility] [address] [place], [address] Hematocrit (Bld) [Volume fraction] 46.2 % Normal 40-54 [facility] Comment on above: Performed By: #### L 100.0100, L500.2500, L501.4021 ####[facility] [address] [place], [address] Hemoglobin (Bld) [Mass/Vol] 15.2 g/dL Normal 13.0-16.5 [facility] Comment on above: Performed By: #### L 100.0100, L500.2500, L501.4021 ####[facility] [address] [place], [address] IG% 0.200 Normal 0.0-0.9 [facility] Comment on above: Result Comment: IG% - Immature Granulocytes (promyelocytes, myelocytes andmetamyelocytes) > 1% indicates that a LEFT SHIFT is Present. Performed By: #### L 100.0100, L500.2500, L501.4021 ####[facility] [address] [place], [address] Lymphocytes/100 WBC (Bld) 37.2 % Normal 19-41 [facility] Comment on above: Performed By: #### L 100.0100, L500.2500, L501.4021 ####[facility] [address] [place], [address] MCH (RBC) [Entitic mass] 31.3 pg Normal 27.0-32.0 [facility] Comment on above: Performed By: #### L 100.0100, L500.2500, L501.4021 ####[facility] [address] [place], [address] MCHC (RBC) [Mass/Vol] 32.9 g/dL Normal 32-36 [facility] Comment on above: Performed By: #### L 100.0100, L500.2500, L501.4021 ####[facility] [address] [place], [address] MCV (RBC) [Entitic vol] 95.1 fL High 80-[address] [facility] Comment on above: Performed By: #### L 100.0100, L500.2500, L501.4021 ####[facility] [address] [place], [address] Monocytes/100 WBC (Bld) 10.3 % High 0-[address] [facility] Comment on above: Performed By: #### L 100.0100, L500.2500, L501.4021 ####[facility] [address] [place], [address] Neutrophils/100 WBC (Bld) 49.8 % Normal 47-70 [facility] Comment on above: Performed By: #### L 100.0100, L500.2500, L501.4021 ####[facility] [address] [place], [address] Nucleated RBC (Bld) [#/Vol] 0 10*3/uL Normal 0-5 [facility] Comment on above: Performed By: #### L 100.0100, L500.2500, L501.4021 ####[facility] [address] [place], [address] Platelet mean volume (Bld) [Entitic vol] 10.3 fL Normal 6.2-12.0 [facility] Comment on above: Performed By: #### L 100.0100, L500.2500, L501.4021 ####[facility] [address] [place], [address] Platelets (Bld) [#/Vol] 244 10*3/uL Normal 150-450 [facility] Comment on above: Performed By: #### L 100.0100, L500.2500, L501.4021 ####[facility] [address] [place], [address] RBC (Bld) [#/Vol] 4.86 10*6/uL Normal 4.6-6.2 [facility] Comment on above: Performed By: #### L 100.0100, L500.2500, L501.4021 ####[facility] [address] [place], [address] RDW SD 45.7 fl High 35.1-43.9 [facility] Comment on above: Performed By: #### L 100.0100, L500.2500, L501.4021 ####[facility] [address] [place], [address] WBC (Bld) [#/Vol] 5.8 10*3/uL Normal 4.4-11.0 [facility] Comment on above: Performed By: #### L 100.0100, L500.2500, L501.4021 ####[facility] [address] [place], [address] Chest 1 View (Portable)on Chest 1 View (Portable) Normal [facility] L501.4021on 06-17-2024 Trop T High Sen 76 ng/L Invalid Interpretation Code <=22 [facility] Comment on above: Result Comment: Crit ical Result(s) Called at: [id number] by: NARAYAN LAMBERT??Results read back by same. Performed By: #### L 100.0100, L500.2500, L501.4021 ####[facility] [address] [place], [address] No Panel InformationOrdered By: ED PROVIDER on 06-17-2024 76 ng/L High <22 [facility] No Panel InformationOrdered By: Jevon Osorio on 06-17-2024 2490 pg/mL High <900 [facility] Ankle Brachial Indexon 06-13 Ankle Brachial Index Normal [facility] Arterial Doppler ultrasound reportOrdered By: Saúl Flowers on 06-13-2024 Study report [facility] [address] [place] [address] US Art Duplex Unilat Lower Ext 06/13/24 1426 MR#: [id number] Acct: [id number] Name: JAYLEN MEJIA Sr. Rep #:[id number] : 1960 64 From: Saúl Whaley Attending Dr: NILSON Heck Stat us: REG CLI Ordering Dr: Lubna Manley Date: Location: [facility] Sex: M C Admitted: Reason For [...] 10 cm./sec. Procedure Exam performed in department. /US Art Duplex Unilat Lower Ext Interpretation Summary Right lower extremity arteries patent with normal velocities and no focal stenosis identified. Ordering Physician: Lubna Manley Referring Physician: Xiang Rogers Performed By: Solange Pena, PENNY, RVT 06/13/24 1633 Date _ Saúl Flowers MD CC: NILSON Heck; Dr. 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 [address] Ankle Brachial Index 06/13/24 1351 MR#: [id number] Acct: [id number] Name: JAYLEN MEJIA Sr. 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 Phone: US Art Duplex Unilat Lower E xton 06-13-2024 US Art Duplex Unilat Lower Ext Normal [facility] Chest 1 View (Portable)on Chest 1 View (Portable) Normal [facility] Emergency Department Summary on 05-21-2024 Emergency Department Summary Normal [facility] Influenza virus A and B and SARS-CoV-2 (COVID-19) and Respiratory syncytial virus RNAOrdered By: Saúl Aguilar on 05-21-2024 SARS-CoV-2 (COVID-19) RNA HAYDER+probe Ql (Unsp spec) [facility] M100.678on 05-21-2024 M100.678 SARS-CoV-2 (COVID 19 ) Negative INFLUENZA A Negative INFLUENZA B Negative RSV PCR Negative Normal [facility] Comment on above: Performed By: #### M 100.678 ####[facility] [address] [place], [address] MR/BMS.BVSon 05-17-2024 MR/BMS.BVS Normal [facility] Echo Complete W/ Contraston 05-09-2024 Echo Complete W/ Contrast Normal [facility] Internal Medicine Office Vis iton 05-03-2024 Internal Medicine Office Visit Normal [facility] Laboratory - Hematology and Cell countson 05-03-2024 HbA1c (Bld) [Mass fraction] 11.4 % High 4.2-6.3 [facility] ACT Activated Clotting Timeo n 04-20-2024 ACTk CLOT TIME 222 sec High 74-137 [facility] Comment on above: Performed By: #### L 9100.0100 ####[facility] [address] [place], [address] Activated clotting timeOrder ed By: Saúl Flowers on 04-20-2024 Activated Clotting Time 222 sec High 74-[address] [facility] Basic Metabolic Profile (BMP )on 04-20-2024 BUN/CRE 15.1 RATIO Normal 10-20 [facility] Comment on above: Performed By: #### L 500.2500, L100.0500 ####[facility] [address] [place], [address] CA,Total 9.3 mg/dL Normal 8.5-10.1 [facility] Comment on above: Performed By: #### L 500.2500, L100.0500 ####[facility] [address] [place], [address] Chloride [Moles/Vol] 103 mmol/L Normal 98-107 [facility] Comment on above: Performed By: #### L 500.2500, L100.0500 ####[facility] [address] [place], [address] CO2 [Moles/Vol] 26.0 mmol/L Normal 21.0-32.0 [facility] Comment on above: Performed By: #### L 500.2500, L100.0500 ####[facility] [address] [place], [address] Creatinine [Mass/Vol] 1.06 mg/dL Normal 0.70-1.30 [facility] Comment on above: Result Comment: The validity of the calculated GFR GFRAA in patients over70 years has not been determined. Clinical correlation isessential. Performed By: #### L 500.2500, L100.0500 ####[facility] [address] [place], [address] ECRCL 78.67 ml/min Normal [facility] Comment on above: Performed By: #### L 500.2500, L100.0500 ####[facility] [address] [place], [address] EST GFR - AA 90 mL/min Normal >60 [facility] Comment on above: Result Comment: Afri can [place]uran GFR Calc Performed By: #### L 500.2500, L100.0500 ####[facility] [address] [place], [address] GAP 6 Normal 5-15 [facility] Comment on above: Performed By: #### L 500.2500, L100.0500 ####[facility] [address] [place], [address] GFR/1.73 sq M.predicted among non-blacks MDRD (S/P/Bld) [Vol rate/Area] 75 mL/min/{1.73_m2} Normal >60 [facility] Comment on above: Result Comment: Non- GFR Calc Performed By: #### L 500.2500, L100.0500 ####[facility] [address] [place], [address] Glucose [Mass/Vol] 228 mg/dL High 74-106 [facility] Comment on above: Result Comment: Gluc ose result greater than or equal to 200 mg/dLsuggests DIABETES MELLITUS per A.D.A. criteria. Performed By: #### L 500.2500, L100.0500 ####[facility] [address] [place], [address] Potassium [Moles/Vol] 4.3 mmol/L Normal 3.5-5.1 [facility] Comment on above: Performed By: #### L 500.2500, L100.0500 ####[facility] [address] [place], [address] Sodium [Moles/Vol] 135 mmol/L Low 136-145 [facility] Comment on above: Performed By: #### L 500.2500, L100.0500 ####[facility] [address] [place], [address] Urea nitrogen [Mass/Vol] 16 mg/dL Normal 7-18 [facility] Comment on above: Performed By: #### L 500.2500, L100.0500 ####[facility] [address] [place], [address] Blood urea nitrogen (BUN)/cr eatinine ratioOrdered By: Saúl Flowers on 04-20-2024 Urea nitrogen/Creatinine [Mass ratio] 15.1 mg/mg 10-20 [facility] CBC-Complete Blood Cnt No Di ffon 04-20-2024 Erythrocyte distribution width (RBC) [Ratio] 12.9 % Normal 11.6-14.6 [facility] Comment on above: Performed By: #### L 500.2500, L100.0500 ####[facility] [address] [place], [address] Hematocrit (Bld) [Volume fraction] 52.2 % Normal 40-54 [facility] Comment on above: Performed By: #### L 500.2500, L100.0500 ####[facility] [address] [place], [address] Hemoglobin (Bld) [Mass/Vol] 17.8 g/dL High 13.0-16.5 [facility] Comment on above: Performed By: #### L 500.2500, L100.0500 ####[facility] [address] [place], [address] MCH (RBC) [Entitic mass] 31.7 pg Normal 27.0-32.0 [facility] Comment on above: Performed By: #### L 500.2500, L100.0500 ####[facility] [address] [place], [address] MCHC (RBC) [Mass/Vol] 34.1 g/dL Normal 32-36 [facility] Comment on above: Performed By: #### L 500.2500, L100.0500 ####[facility] [address] [place], [address] MCV (RBC) [Entitic vol] 92.9 fL Normal 80-[address] [facility] Comment on above: Performed By: #### L 500.2500, L100.0500 ####[facility] [address] [place], [address] Platelet mean volume (Bld) [Entitic vol] 9.5 fL Normal 6.2-12.0 [facility] Comment on above: Performed By: #### L 500.2500, L100.0500 ####[facility] [address] [place], [address] Platelets (Bld) [#/Vol] 271 10*3/uL Normal 150-450 [facility] Comment on above: Performed By: #### L 500.2500, L100.0500 ####[facility] [address] [place], [address] RBC (Bld) [#/Vol] 5.62 10*6/uL Normal 4.6-6.2 [facility] Comment on above: Performed By: #### L 500.2500, L100.0500 ####[facility] [address] [place], [address] RDW SD 43.8 fl Normal 35.1-43.9 [facility] Comment on above: Performed By: #### L 500.2500, L100.0500 ####[facility] [address] [place], [place], [address] WBC (Bld) [#/Vol] 8.5 10*3/uL Normal 4.4-11.0 [facility] Comment on above: Performed By: #### L 500.2500, L100.0500 ####[facility] [address] [place], [address] Carbon dioxide measurementOr dered By: Saúl Flowers on 04-20-2024 CO2 [Moles/Vol] 26.0 mmol/L 21.0-32.0 [facility] Chloride measurementOrdered By: Saúl Flowers on 04-20-2024 Chloride [Moles/Vol] 103 mmol/L 98-107 [facility] Erythrocyte distribution wid th ratioOrdered By: Saúl Flowers on 04-20-2024 Erythrocyte distribution width (RBC) [Ratio] 12.9 % 11.6-14.6 [facility] Erythrocyte distribution wid th standard deviationOrdered By: Saúl Flowers on 04-20-2024 Erythrocyte distribution width (RBC) [Entitic vol] 43.8 fL 35.1-43.9 [facility] Estimated glomerular filtrat ion rate (GFR) AmericanOrdered By: Saúl Flowers on 04-20-2024 Estimated GFR (MDRD) Amer 90 mL/min >60 [facility] Comment on above: GFR Calc Estimation of creatinine john aranceOrdered By: Saúl Flowers on 04-20-2024 Estimated Creatinine Clearance Calc 78.67 ml/min [facility] Glomerular filtration rate ( GFR) estimationOrdered By: Saúl Flowers on 04-20-2024 Estimated GFR (MDRD) Non-Af Amer 75 mL/min >60 [facility] Comment on above: Non- GFR Calc Glucose measurementOrdered B y: Saúl Flowers on 04-20-2024 Glucose [Mass/Vol] 228 mg/dL High 74-106 [facility] Comment on above: Glucose result great er than or equal to 200 mg/dLsuggests DIABETES MELLITUS per A.D.A. criteria. Hematocrit Auto (Bld) [Volum e fraction]Ordered By: Saúl Flowers on 04-20-2024 Hematocrit (Bld) [Volume fraction] 52.2 % 40-54 [facility] Hemoglobin measurementOrdere d By: Saúl Flowers on 04-20-2024 Hemoglobin (Bld) [Mass/Vol] 17.8 g/dL High 13.0-16.5 [facility] MCV (mean corpuscular volume ) determinationOrdered By: Saúl Flowers on 04-20-2024 MCV (RBC) [Entitic vol] 92.9 fL 80-[address] [facility] Mean corpuscular hemoglobin (MCH) determinationOrdered By: Saúl Flowers on 04-20-2024 MCH (RBC) [Entitic mass] 31.7 pg 27.0-32.0 [facility] Mean corpuscular hemoglobin concentration (MCHC) determinationOrdered By: Saúl Flowers on 04-20-2024 MCHC (RBC) [Mass/Vol] 34.1 g/dL 32-36 [facility] Mean platelet volume determi nationOrdered By: Saúl Flowers on 04-20-2024 Platelet mean volume (Bld) [Entitic vol] 9.5 fL 6.2-12.0 [facility] Operative Reporton Operative Report Normal [facility] Platelet countOrdered By: Chacho Flowers on 04-20-2024 Platelets (Bld) [#/Vol] 271 10*3/uL 150-450 [facility] Potassium measurementOrdered By: Saúl Flowers on 04-20-2024 Potassium [Moles/Vol] 4.3 mmol/L 3.5-5.1 [facility] RBC Auto (Bld) [#/Vol]Ordere d By: Saúl Flowers on 04-20-2024 RBC (Bld) [#/Vol] 5.62 10*6/uL 4.6-6.2 [facility] Serum anion gap measurementO rdered By: Saúl Flowers on 04-20-2024 Anion gap [Moles/Vol] 6 mmol/L -15 [facility] Serum or plasma calcium brenda urement (mass/volume)Ordered By: Saúl Flowers on 04-20-2024 Calcium [Mass/Vol] 9.3 mg/dL 8.5-10.1 [facility] Serum or plasma creatinine m easurement (mass/volume)Ordered By: Saúl Flowers on 04-20-2024 Creatinine [Mass/Vol] 1.06 mg/dL 0.70-1.30 [facility] Comment on above: The validity of the calculated GFR & GFRAA in patients over 70 years has not been determined. Clinical correlation is essential. Serum or plasma urea nitroge n measurement (mass/volume)Ordered By: Saúl Flowers on 04-20-2024 Urea nitrogen [Mass/Vol] 16 mg/dL 7-18 [facility] Sodium levelOrdered By: Saúl Flowers on 04-20-2024 Sodium [Moles/Vol] 135 mmol/L Low 136-145 [facility] White blood cell (WBC) count Ordered By: Saúl Flowers on 04-20-2024 WBC (Bld) [#/Vol] 8.5 10*3/uL 4.4-11.0 [facility] MR/BMS.BVSon 04-08-2024 MR/BMS.BVS Normal [facility] Cardiology Visit Reporton Cardiology Visit Report Normal [facility] CREATININE FINGERSTICKon CREATININE WB < 1.0 Normal 0.70-1.30 [facility] Comment on above: Performed By: #### L 9100.0200 ####[facility] [address] [facility] [place], [place], [address] EGFR WB > 60.0000 Normal >60 [facility] Comment on above: Performed By: #### L 9100.0200 ####[facility] [address] [place], [address] CTA Abd w/Runoff W/WO Contra ston 03-29-2024 CTA Abd w/Runoff W/WO Contrast Normal [facility] Creatinine measurement at be dsideOrdered By: Lubna Manley on 03-29-2024 Bedside Creatinine < 1.0 mg/dL 0.70-1.30 [facility] EGFROrdered By: Lubna Manley on 03-29-2024 Bedside Estimated GFR (eGFR) > 60.0000 mL/min >60 [facility] MR/BMS.BVSon 03-22-2024 MR/BMS.BVS Normal [facility] Lower Ext Art Exam w/o Exerc zachary 03-09-2024 Lower Ext Art Exam w/o Exercis Normal [facility] Internal Medicine Office Vis iton 02-24-2024 Internal Medicine Office Visit Normal [facility] Laboratory - Hematology and Cell countson 02-24-2024 HbA1c (Bld) [Mass fraction] 11.3 % High 4.2-6.3 [facility] MR/BMS.BVSon 02-24-2024 MR/BMS.BVS Normal [facility] Lipid Profileon 02-23-2024 Cholesterol [Mass/Vol] 238 mg/dL High 200 [facility] Comment on above: Result Comment: <200 mg/dL Desirable 200-240 mg/dL Borderline >240 mg/dL High Risk Performed By: #### L 500.3400, L500.4100 ####[facility] [address] [place], [address] Cholesterol in HDL [Mass/Vol] 38 mg/dL Low [facility] Comment on above: Result Comment: The drugs N-Acetylcysteine and Metamizole may falselydepress this assay. Reference Range HDL <40 mg/dL Low HDL Cholesterol HDL >or= 60 mg/dL High HDL Cholesterol Performed By: #### L 500.3400, L500.4100 ####[facility] [address] [place], [address] LDL TNP Normal 0-130 [facility] Comment on above: Performed By: #### L 500.3400, L500.4100 ####[facility] [address] [place], [address] Triglyceride [Mass/Vol] 607 mg/dL High [facility] Comment on above: Result Comment: The drugs N-Acetylcysteine and Metamizole may falselydepress this assay.TRIGLYCERIDE IS GREATER THAN 400 mg/dL.LDL RESULT IS INVALID AND WILL NOT BE REPORTED.Serum Triglycerides Reference Interval Normal <150 mg/dL Borderline high 150 - 199 mg/dL High 200 - 499 mg/dL Very High > or = 500 mg/dL Performed By: #### L 500.3400, L500.4100 ####[facility] [address] [place], [address] VLDL TNP Normal 5-40 [facility] Comment on above: Performed By: #### L 500.3400, L500.4100 ####[facility] [address] [place], [address] Liver Profileon 02-23-2024 Albumin [Mass/Vol] 3.8 g/dL Normal 3.2-5.0 [facility] Comment on above: Performed By: #### L 500.3400, L500.4100 ####[facility] [address] [place], [address] ALK P 69 U/L Normal 45-117 [facility] Comment on above: Performed By: #### L 500.3400, L500.4100 ####[facility] [address] [place], [address] ALT [Catalytic activity/Vol] 37 U/L Normal 16-61 [facility] Comment on above: Performed By: #### L 500.3400, L500.4100 ####[facility] [address] [place], [address] AST [Catalytic activity/Vol] 27 U/L Normal 15-37 [facility] Comment on above: Performed By: #### L 500.3400, L500.4100 ####[facility] [address] [place], [address] Bilirubin [Mass/Vol] 0.70 mg/dL Normal 0.20-1.00 [facility] Comment on above: Result Comment: For patients on eltrombopag therapy, use of Dimension Burns TBIL is not recommended. Performed By: #### L 500.3400, L500.4100 ####[facility] [address] [place], [address] Bilirubin.direct [Mass/Vol] 0.16 mg/dL Normal 0.00-0.30 [facility] Comment on above: Performed By: #### L 500.3400, L500.4100 ####[facility] [address] [place], [address] Globulin (S) [Mass/Vol] 4.0 g/dL Normal 2.2-4.2 [facility] Comment on above: Performed By: #### L 500.3400, L500.4100 ####[facility] [address] [place], [address] T PROT 7.8 g/dL Normal 6.4-8.2 [facility] Comment on above: Performed By: #### L 500.3400, L500.4100 ####[facility] [address] [place], [address] MR/BMS.BVSon 01-07-2024 MR/BMS.BVS Normal [facility] Venous Duplex US, Unilateral on 11-13-2023 Venous Duplex US, Unilateral Normal [facility] Internal Medicine Office Vis iton 10-28-2023 Internal Medicine Office Visit Normal [facility] Basophil percentageOrdered B y: Xiang Brown on 04-15-2023 Bilirubin [Mass/Vol] 0.60 mg/dL 0.20-1.00 [facility] Comment on above: For patients on eltr ombopag therapy, use of Dimension Burns TBIL is not recommended. Chloride [Moles/Vol] 100 mmol/L 98-107 [facility] Cholesterol [Mass/Vol] 255 mg/dL <200 [facility] Comment on above: <200 mg/dL Desirable 200-240 mg/dL Borderline >240 mg/dL High Risk Glucose [Mass/Vol] 255 mg/dL 74-106 [facility] Comment on above: Glucose result great er than or equal to 200 mg/dLsuggests DIABETES MELLITUS per A.D.A. criteria. Potassium [Moles/Vol] 4.7 mmol/L 3.5-5.1 [facility] Comment on above: Slight Hemolysis, Re sult may be falsely increased. Protein [Mass/Vol] 7.7 g/dL 6.4-8.2 [facility] Sodium [Moles/Vol] 133 mmol/L 136-145 [facility] Triglyceride [Mass/Vol] 411 mg/dL <[address] [facility] Comment on above: The drugs N-Acetylcy steine [...] [Catalytic activity/Vol] 81 U/L 45-117 [facility] ALT [Catalytic activity/Vol] 40 U/L 16-61 [facility] CO2 [Moles/Vol] 28.0 mmol/L 21.0-32.0 [facility] Globulin (S) [Mass/Vol] 4.1 g/dL 2.2-4.2 [facility] Urea nitrogen/Creatinine [Mass ratio] 11.9 mg/mg 10-20 [facility] Laboratory - Hematology and Cell countson 04-15-2023 HbA1c (Bld) [Mass fraction] 10.6 % 4.2-6.3 [facility] No Panel InformationOrdered By: Xiang Rogers on 04-15-2023 Estimated GFR (MDRD) Amer 96 mL/min >60 [facility] Comment on above: GFR Calc Estimated GFR (MDRD) Non-Af Amer 79 mL/min >60 [facility] Comment on above: Non- GFR Calc Serum or plasma albumin brenda urement (mass/volume)Ordered By: Xiang Rogers on 04-15-2023 Albumin [Mass/Vol] 3.6 g/dL 3.2-5.0 [facility] Serum or plasma albumin/glob ulin mass ratioOrdered By: Xiang Rogers on 04-15-2023 Albumin/Globulin [Mass ratio] 0.9 {ratio} 0.9-2.4 [facility] Serum or plasma calcium brenda urement (mass/volume)Ordered By: Xiang Rogers on 04-15-2023 Calcium [Mass/Vol] 8.9 mg/dL 8.5-10.1 [facility] Serum or plasma cholesterol in HDL measurement (mass/volume)Ordered By: Xiang Rogers on 04-15-2023 Cholesterol in HDL [Mass/Vol] 37 mg/dL >40 [facility] Comment on above: The drugs N-Acetylcy steine and Metamizole may falsely depress this assay. Reference Range HDL <40 mg/dL Low HDL Cholesterol HDL >or= 60 mg/dL High HDL Cholesterol Serum or plasma cholesterol in VLDL measurement (mass/volume)Ordered By: Xiang Rogers on 04-15-2023 Cholesterol in VLDL [Mass/Vol] [facility] Comment on above: Test not performed Serum or plasma creatinine m easurement (mass/volume)Ordered By: Xiang Rogers on 04-15-2023 Creatinine [Mass/Vol] 1.01 mg/dL 0.70-1.30 [facility] Comment on above: The validity of the calculated GFR & GFRAA in patients over 70 years has not been determined. Clinical correlation is essential. Serum or plasma low density lipoprotein (LDL) cholesterol measurement (mass/volume)Ordered By: Xiang Rogers on 04-15-2023 Cholesterol in LDL [Mass/Vol] [facility] Comment on above: Test not performed Serum or plasma urea nitroge n measurement (mass/volume)Ordered By: Xiang Rogers on 04-15-2023 Urea nitrogen [Mass/Vol] 12 mg/dL -18 [facility] Thin prep Papanicolaou smear with manual screeningOrdered By: Xiang Rogers on 04-15-2023 Thin prep Papanicolaou smear with manual screening 29 U/L [facility] Comment on above: Slight Hemolysis, Re sult may be falsely increased. Thin prep Papanicolaou smear with manual screening 5 5-15 [facility] Laboratory - Hematology and Cell countson 01-13-2023 HbA1c (Bld) [Mass fraction] 9.0 % 4.2-6.3 [facility] Basophil percentageOrdered B y: Dean Pena on 06-02-2022 Bilirubin [Mass/Vol] 0.50 mg/dL 0.20-1.00 [facility] Comment on above: For patients on eltr ombopag therapy, use of Dimension Burns TBIL is not recommended. Cholesterol [Mass/Vol] 326 mg/dL <200 [facility] Comment on above: <200 mg/dL Desirable 200-240 mg/dL Borderline >240 mg/dL High Risk Protein [Mass/Vol] 7.5 g/dL 6.4-8.2 [facility] Triglyceride [Mass/Vol] 883 mg/dL <[address] [facility] Comment on above: The drugs N-Acetylcy steine [...] Bilirubin.direct [Mass/Vol] 0.07 mg/dL 0.00-0.30 [facility] Laboratory - Chemistry and C hemistry - challengeOrdered By: Dean Pena on 06-02-2022 ALP [Catalytic activity/Vol] 68 U/L 45-117 [facility] ALT [Catalytic activity/Vol] 35 U/L 16-61 [facility] Globulin (S) [Mass/Vol] 3.9 g/dL 2.2-4.[address] [facility] Serum or plasma albumin brenda urement (mass/volume)Ordered By: Dean Pena on 06-02-2022 Albumin [Mass/Vol] 3.6 g/dL 3.2-5.0 [facility] Serum or plasma cholesterol in HDL measurement (mass/volume)Ordered By: Dean Pena on 06-02-2022 Cholesterol in HDL [Mass/Vol] 36 mg/dL >40 [facility] Comment on above: The drugs N-Acetylcy steine and Metamizole may falsely depress this assay. Reference Range HDL <40 mg/dL Low HDL Cholesterol HDL >or= 60 mg/dL High HDL Cholesterol Serum or plasma cholesterol in VLDL measurement (mass/volume)Ordered By: Dean Pena on 06-02-2022 Cholesterol in VLDL [Mass/Vol] [facility] Comment on above: Test not performed Serum or plasma low density lipoprotein (LDL) cholesterol measurement (mass/volume)Ordered By: Dean Pena on 06-02-2022 Cholesterol in LDL [Mass/Vol] [facility] Comment on above: Test not performed Thin prep Papanicolaou smear with manual screeningOrdered By: Dean Pena on 06-02-2022 Thin prep Papanicolaou smear with manual screening 26 U/L 15-37 [facility] Comment on above: Moderate Hemolysis, Result may be falsely increased. Absolute lymphocyte countOrd ered By: Dr. Johnson on 04-19-2022 Lymphocytes Auto (Unsp spec) [#/Vol] 1.77 10*3/uL 0.83-4.51 [facility] Basophil percentageOrdered B y: Dr. Fields on 04-19-2022 Chloride [Moles/Vol] 104 mmol/L 98-107 [facility] Glucose [Mass/Vol] 235 mg/dL 74-106 [facility] Comment on above: Glucose result great er than or equal to 200 mg/dLsuggests DIABETES MELLITUS per A.D.A. criteria. Potassium [Moles/Vol] 4.1 mmol/L 3.5-5.1 [facility] Sodium [Moles/Vol] 137 mmol/L 136-145 [facility] Basophil percentageOrdered B y: Dr. Johnson on 04-19-2022 Basophils/100 WBC (Bld) 0.5 % 0-[address] [facility] Eosinophils/100 WBC (Bld) 4.3 % 0-5 [facility] Neutrophils (Bld) [#/Vol] 3.9 10*3/uL 2.0-7.7 [facility] Neutrophils/100 WBC (Bld) 59.9 % 47-70 [facility] WBC (Bld) [#/Vol] 6.6 10*3/uL 4.4-11.0 [facility] Blood erythrocytes count (nu mber/volume)Ordered By: Dr. Johnson on 04-19-2022 RBC (Bld) [#/Vol] 4.82 10*6/uL 4.6-6.2 [facility] Blood hemoglobin measurement (mass/volume)Ordered By: Dr. Johnson on 04-19-2022 Hemoglobin (Bld) [Mass/Vol] 15.4 g/dL 13.0-16.5 [facility] Blood lymphocytes/100 leukoc ytesOrdered By: Dr. Johnson on 04-19-2022 Lymphocytes/100 WBC (Bld) 27.0 % 19-41 [facility] Blood monocytes/100 leukocyt esOrdered By: Dr. Johnson on 04-19-2022 Monocytes/100 WBC (Bld) 7.8 % 0-[address] [facility] Blood platelet mean volumeOr dered By: Dr. Johnson on 04-19-2022 Platelet mean volume (Bld) [Entitic vol] 10.2 fL 6.2-12.0 [facility] Determination of erythrocyte mean corpuscular volume (MCV)Ordered By: Dr. Johnson on 04-19-2022 MCV (RBC) [Entitic vol] 95.4 fL 80-[address] [facility] Glucose Glucometer (BldC) [M ass/Vol]Ordered By: Dr. Fields on 04-19-2022 Glucose [Mass/Vol] 290 mg/dL 74-106 [facility] Comment on above: MANAGEMENT OF PATIEN T CARE PER NURSING PROTOCOL Hematocrit Auto (Bld) [Volum e fraction]Ordered By: Dr. Johnson on 04-19-2022 Hematocrit (Bld) [Volume fraction] 46.0 % 40-54 [facility] INR in Blood by Coagulation assayOrdered By: Dr. Fields on 04-19-2022 INR Coag (Bld) [Relative time] 1.0 {INR} [facility] Laboratory - Chemistry and C hemistry - challengeOrdered By: Dr. Fields on 04-19-2022 CO2 [Moles/Vol] 26.0 mmol/L 21.0-32.0 [facility] Urea nitrogen/Creatinine [Mass ratio] 15.7 mg/mg 10-20 [facility] Laboratory - CoagulationOrde red By: Dr. Fields on 04-19-2022 aPTT Coag (Bld) [Time] 25.0 s 24.1-36.2 [facility] PT Coag (PPP) [Time] 13.0 s 11.7-14.9 [facility] Laboratory - Hematology and Cell countsOrdered By: Dr. Johnson on 04-19-2022 Erythrocyte distribution width (RBC) [Entitic vol] 43.7 fL 35.1-43.9 [facility] Erythrocyte distribution width (RBC) [Ratio] 12.4 % 11.6-14.6 [facility] Immature granulocytes/100 WBC (Bld) 0.500 % 0.0-0.9 [facility] Comment on above: IG% - Immature Granu locytes (promyelocytes, myelocytes and metamyelocytes) > 1% indicates that a LEFT SHIFT is Present. MCH (RBC) [Entitic mass] 32.0 pg 27.0-32.0 [facility] Nucleated RBC/100 WBC (Bld) [Ratio] 0 % 0-5 [facility] MCHC Auto (RBC) [Mass/Vol]Or dered By: Dr. Johnson on 04-19-2022 MCHC (RBC) [Mass/Vol] 33.5 g/dL 32-36 [facility] No Panel InformationOrdered By: Dr. Fields on 04-19-2022 Estimated Creatinine Clearance Calc 79.98 ml/min [facility] Estimated GFR (MDRD) Amer 95 mL/min >60 [facility] Comment on above: GFR Calc Estimated GFR (MDRD) Non-Af Amer 79 mL/min >60 [facility] Comment on above: Non- GFR Calc Platelets bldOrdered By: Dr. Johnson on 04-19-2022 Platelets (Bld) [#/Vol] 254 10*3/uL 150-450 [facility] Serum or plasma calcium brenda urement (mass/volume)Ordered By: Dr. Fields on 04-19-2022 Calcium [Mass/Vol] 8.9 mg/dL 8.5-10.1 [facility] Serum or plasma creatinine m easurement (mass/volume)Ordered By: Dr. Fields on 04-19-2022 Creatinine [Mass/Vol] 1.02 mg/dL 0.70-1.30 [facility] Comment on above: The validity of the calculated GFR & GFRAA in patients over 70 years has not been determined. Clinical correlation is essential. Serum or plasma urea nitroge n measurement (mass/volume)Ordered By: Dr. Fields on 04-19-2022 Urea nitrogen [Mass/Vol] 16 mg/dL 7-18 [facility] Thin prep Papanicolaou smear with manual screeningOrdered By: Dr. Fields on 04-19-2022 Thin prep Papanicolaou smear with manual screening 7 5-15 [facility] Absolute lymphocyte counton 04-18-2022 Lymphocytes Auto (Unsp spec) [#/Vol] 2.31 10*3/uL 0.83-4.51 [facility] Work Phone: Basophil percentageon 2022 Basophils/100 WBC (Bld) 0.5 % 0-[address] [facility] Work Phone: Chloride [Moles/Vol] 103 mmol/L 98-107 [facility] Work Phone: Eosinophils/100 WBC (Bld) 4.3 % 0-5 [facility] Work Phone: Glucose [Mass/Vol] 252 mg/dL 74-106 [facility] Work Phone: Comment on above: Moderate Lipemia, Re sult may be falsely increased.Glucose result greater than or equal to 200 mg/dLsuggests DIABETES MELLITUS per A.D.A. criteria. Neutrophils (Bld) [#/Vol] 4.7 10*3/uL 2.0-7.7 [facility] Work Phone: Neutrophils/100 WBC (Bld) 57.7 % 47-70 [facility] Work Phone: Potassium [Moles/Vol] 3.9 mmol/L 3.5-5.1 [facility] Work Phone: Comment on above: Moderate Hemolysis, Result may be falsely increased. Sodium [Moles/Vol] 136 mmol/L 136-145 [facility] Work Phone: WBC (Bld) [#/Vol] 8.1 10*3/uL 4.4-11.0 [facility] Work Phone: Blood erythrocytes count (nu mber/volume)on 04-18-2022 RBC (Bld) [#/Vol] 4.98 10*6/uL 4.6-6.2 [facility] Work Phone: Blood hemoglobin measurement (mass/volume)on 04-18-2022 Hemoglobin (Bld) [Mass/Vol] 16.4 g/dL 13.0-16.5 [facility] Work Phone: [phone] Blood lymphocytes/100 leukoc yteson 04-18-2022 Lymphocytes/100 WBC (Bld) 28.6 % 19-41 [facility] Work Phone: [phone] Blood monocytes/100 leukocyt eson 04-18-2022 Monocytes/100 WBC (Bld) 8.5 % 0-[address] [facility] Work Phone: [phone] Blood platelet mean volumeon 04-18-2022 Platelet mean volume (Bld) [Entitic vol] 10.2 fL 6.2-12.0 [facility] Work Phone: Determination of erythrocyte mean corpuscular volume (MCV)on 04-18-2022 MCV (RBC) [Entitic vol] 97.4 fL 80-[address] [facility] Work Phone: Hematocrit Auto (Bld) [Volum e fraction]on 04-18-2022 Hematocrit (Bld) [Volume fraction] 48.5 % 40-54 [facility] Work Phone: [phone] INR in Blood by Coagulation assayon 04-18-2022 INR Coag (Bld) [Relative time] 1.0 {INR} [facility] Work Phone: [phone] Laboratory - Chemistry and C hemistry - challengeon 04-18-2022 CO2 [Moles/Vol] 28.0 mmol/L 21.0-32.0 [facility] Work Phone: [phone] Urea nitrogen/Creatinine [Mass ratio] 17.1 mg/mg 10-20 [facility] Work Phone: [phone] Laboratory - Chemistry and C hemistry - challengeOrdered By: Dr. Moura on 04-18-2022 Magnesium [Mass/Vol] 1.8 mg/dL 1.6-2.6 [facility] Comment on above: Moderate Hemolysis, Result may be falsely increased. Laboratory - Coagulationon 0 04-18-2022 aPTT Coag (Bld) [Time] 25.6 s 24.1-36.2 [facility] Work Phone: PT Coag (PPP) [Time] 12.3 s 11.7-14.9 [facility] Work Phone: Laboratory - Hematology and Cell countson 04-18-2022 Erythrocyte distribution width (RBC) [Entitic vol] 44.8 fL 35.1-43.9 [facility] Work Phone: Erythrocyte distribution width (RBC) [Ratio] 12.4 % 11.6-14.6 [facility] Work Phone: Immature granulocytes/100 WBC (Bld) 0.400 % 0.0-0.9 [facility] Work Phone: Comment on above: IG% - Immature Granu locytes (promyelocytes, myelocytes and metamyelocytes) > 1% indicates that a LEFT SHIFT is Present. MCH (RBC) [Entitic mass] 32.9 pg 27.0-32.0 [facility] Work Phone: Nucleated RBC/100 WBC (Bld) [Ratio] 0 % 0-5 [facility] Work Phone: MCHC Auto (RBC) [Mass/Vol]on 04-18-2022 MCHC (RBC) [Mass/Vol] 33.8 g/dL 32-36 [facility] Work Phone: No Panel InformationOrdered By: Dr. Fields on 04-18-2022 Troponin I High Sensitivity 1889 pg/mL 3.0-78.0 [facility] Comment on above: Critical Result(s) C alled at: 09:16:37 04/18/2022 by: Rula BIRDbarnes-[facility]. Results read back by same. Please Note: New Test Units and Gender Specific Reference Ranges. For more information see Policy Stat Procedure Burns High Sensitivity Troponin (TNIH) and attachments. No Panel Informationon 04-18 Troponin I High Sensitivity 241 pg/mL 3.0-78.0 [facility] Work Phone: Comment on above: Critical Result(s) C alled at: 04:49:49 04/18/2022 by: NICOLE Matthews [employer]CH SERVICE SPECIALIST. Results read back by same. Please Note: New Test Units and Gender Specific Reference Ranges. For more information see Policy Stat Procedure Burns High Sensitivity Troponin (TNIH) and attachments. Estimated Creatinine Clearance Calc 77.69 ml/min [facility] Work Phone: Estimated GFR (MDRD) Amer 92 mL/min >60 [facility] Work Phone: Comment on above: GFR Calc Estimated GFR (MDRD) Non-Af Amer 76 mL/min >60 [facility] Work Phone: Comment on above: Non- GFR Calc Platelets bldon 04-18-2022 Platelets (Bld) [#/Vol] 254 10*3/uL 150-450 [facility] Work Phone: Serum or plasma calcium brenda urement (mass/volume)on 04-18-2022 Calcium [Mass/Vol] 8.5 mg/dL 8.5-10.1 [facility] Work Phone: Comment on above: Moderate Lipemia, Re sult may be falsely decreased. Serum or plasma creatinine m easurement (mass/volume)on 04-18-2022 Creatinine [Mass/Vol] 1.05 mg/dL 0.70-1.30 [facility] Work Phone: Comment on above: The validity of the calculated GFR & GFRAA in patients over 70 years has not been determined. Clinical correlation is essential. Serum or plasma urea nitroge n measurement (mass/volume)on 04-18-2022 Urea nitrogen [Mass/Vol] 18 mg/dL 7-18 [facility] Work Phone: Thin prep Papanicolaou smear with manual screeningon 04-18-2022 Thin prep Papanicolaou smear with manual screening 5 5-15 [facility] Work Phone: Laboratory - Hematology and Cell countson 04-09-2022 HbA1c (Bld) [Mass fraction] 12.5 % 4.2-6.3 [facility] CNOVon 02-04-2022 CNOV Office Visit (GENSWS ) JAYLEN MEJIA ([id number]) 1960 Omar Date Time Provider Department 02/04/22 [...] non-ST elevation myocardial infarction (NSTEMI) 06/11/[address] Herrera Espinosa Hypertension Other emphysema (HCC) [...] repair of (more content not included)... Normal [facility] CNOVon 01-28-2022 CNOV Office Visit (FERNANDOS ) JAYLEN MEJIA ([id number]) 1960 M Date Time Provider Department 01/28/22 [...] non-ST elevation myocardial infarction (NSTEMI) 06/11/[address] Herrera Espinosa Hypertension Other emphysema (HCC) [...] ?C (97.3 ?F), height 180.3 cm (5' 11), weight 87.4 kg (192 lb 9.6 oz), [...] and ROS (more content not included)... Normal [facility] [place] CT PELVIS WO IVCONon 022 CT PELVIS WO IVCON * * *Final Report* * * DATE OF EXAM: Jan 28 2022 10:28AM [facility] 0556 - CT PELVIS WO IVCON / [...] Fat-containing left inguinal hernia. Scattered colonic diverticula. 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 Herrera Espinosa Hypertension Other emphysema (HCC) [...] gauge x (more content not included)... Normal [facility] [place] Absolute lymphocyte counton 01-01-2022 Lymphocytes Auto (Unsp spec) [#/Vol] 2.63 10*3/uL 0.83-4.51 [facility] Work Phone: Basophil percentageon 2021 Basophils/100 WBC (Bld) 0.3 % 0-[address] [facility] Work Phone: Chloride [Moles/Vol] 98 mmol/L 98-107 [facility] Work Phone: Eosinophils/100 WBC (Bld) 3.4 % 0-5 [facility] Work Phone: Glucose [Mass/Vol] 283 mg/dL 74-106 [facility] Work Phone: Comment on above: Moderate Lipemia, Re sult may be falsely increased.Glucose result greater than or equal to 200 mg/dLsuggests DIABETES MELLITUS per A.D.A. criteria. Neutrophils (Bld) [#/Vol] 3.5 10*3/uL 2.0-7.7 [facility] Work Phone: Neutrophils/100 WBC (Bld) 51.0 % 47-70 [facility] Work Phone: Potassium [Moles/Vol] 4.2 mmol/L 3.5-5.1 [facility] Work Phone: Comment on above: Moderate Hemolysis, Result may be falsely increased. Sodium [Moles/Vol] 133 mmol/L 136-145 [facility] Work Phone: WBC (Bld) [#/Vol] 6.8 10*3/uL 4.4-11.0 [facility] Work Phone: Blood erythrocytes count (nu mber/volume)on 01-01-2022 RBC (Bld) [#/Vol] 4.96 10*6/uL 4.6-6.2 [facility] Work Phone: Blood hemoglobin measurement (mass/volume)on 01-01-2022 Hemoglobin (Bld) [Mass/Vol] 16.4 g/dL 13.0-16.5 [facility] Work Phone: Blood lymphocytes/100 leukoc yteson 01-01-2022 Lymphocytes/100 WBC (Bld) 38.7 % 19-41 [facility] Work Phone: Blood monocytes/100 leukocyt eson 01-01-2022 Monocytes/100 WBC (Bld) 6.3 % 0-[address] [facility] Work Phone: Blood platelet mean volumeon 01-01-2022 Platelet mean volume (Bld) [Entitic vol] 10.3 fL 6.2-12.0 [facility] Work Phone: Determination of erythrocyte mean corpuscular volume (MCV)on 01-01-2022 MCV (RBC) [Entitic vol] 93.5 fL 80-[address] [facility] Work Phone: Hematocrit Auto (Bld) [Volum e fraction]on 01-01-2022 Hematocrit (Bld) [Volume fraction] 46.4 % 40-54 [facility] Work Phone: Laboratory - Chemistry and C hemistry - challengeon 01-01-2022 CO2 [Moles/Vol] 30.0 mmol/L 21.0-32.0 [facility] Work Phone: Urea nitrogen/Creatinine [Mass ratio] 15.3 mg/mg 10-20 [facility] Work Phone: [phone] Laboratory - Hematology and Cell countson 01-01-2022 Erythrocyte distribution width (RBC) [Entitic vol] 41.0 fL 35.1-43.9 [facility] Work Phone: [phone] Erythrocyte distribution width (RBC) [Ratio] 11.9 % 11.6-14.6 [facility] Work Phone: [phone] Immature granulocytes/100 WBC (Bld) 0.300 % 0.0-0.9 [facility] Work Phone: [phone] Comment on above: IG% - Immature Granu locytes (promyelocytes, myelocytes and metamyelocytes) > 1% indicates that a LEFT SHIFT is Present. MCH (RBC) [Entitic mass] 33.1 pg 27.0-32.0 [facility] Work Phone: [phone] Nucleated RBC/100 WBC (Bld) [Ratio] 0 % 0-5 [facility] Work Phone: [phone] MCHC Auto (RBC) [Mass/Vol]on 01-01-2022 MCHC (RBC) [Mass/Vol] 35.3 g/dL 32-36 [facility] Work Phone: No Panel Informationon 01-01 Estimated GFR (MDRD) Amer 100 mL/min >60 [facility] Work Phone: [phone] Comment on above: GFR Calc Estimated GFR (MDRD) Non-Af Amer 82 mL/min >60 [facility] Work Phone: [phone] Comment on above: Non- GFR Calc Vitamin D 25-Hydroxy 13.3 ng/mL [facility] Work Phone: [phone] Comment on above: Vitamin D 25(OH) Sta tus Range Deficiency <20 ng/mL (50nmol/L) Insufficiency 20 - 30 ng/mL (50 - 75 nmol/L) Sufficiency 30 - 100 ng/mL (75 - 250 nmol/L) Toxicity >100 ng/mL (>250 nmol/L) Platelets bldon 01-01-2022 Platelets (Bld) [#/Vol] 258 10*3/uL 150-450 [facility] Work Phone: Serum or plasma calcium brenda urement (mass/volume)on 01-01-2022 Calcium [Mass/Vol] 8.2 mg/dL 8.5-10.1 [facility] Work Phone: Comment on above: Moderate Lipemia, Re sult may be falsely decreased. Serum or plasma creatinine m easurement (mass/volume)on 01-01-2022 Creatinine [Mass/Vol] 0.98 mg/dL 0.70-1.30 [facility] Work Phone: Comment on above: The validity of the calculated GFR & GFRAA in patients over 70 years has not been determined. Clinical correlation is essential. Serum or plasma urea nitroge n measurement (mass/volume)on 01-01-2022 Urea nitrogen [Mass/Vol] 15 mg/dL 7-18 [facility] Work Phone: Thin prep Papanicolaou smear with manual screeningon 01-01-2022 Thin prep Papanicolaou smear with manual screening 5 5-15 [facility] Work Phone: Whole blood hemoglobin A1c/t otal hemoglobin ratio (mass fraction)on 01-01-2022 HbA1c (Bld) [Mass fraction] 11.6 % 3.8-5.6 [facility] Work Phone: Comment on above: Normal < 5.7 % Predi abetic 5.7 - 6.4 % Diabetic >or= 6.5 % Please note range changes. CNOVon 07-18-2021 CNOV Office Visit (UCWSTR ) JAYLEN MEJIA ([id number]) 1960 M Date Time Provider Department 07/18/21 12:45 PM [facility] During your visit today, we recorded the following information about you: Temperature Pulse Respiration Blood pressure 98 degrees 100/minute 18/minute 122/74 Weight 88 kg Gab VillegasBROOKE dang.[employer]ARER 07/18/2021 1:57 PM Signed Subjective HPI Nontoxic-appearing [...] type 2 in obese (HCC) - Hyperlipidemia Hog Raiser Dr. 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 Normal [facility] [place] No Panel Informationon 07-18 Influenza Types A,B Direct FA (PORFIRIO) [facility] Work Phone: Basophil percentageon 2021 Chloride [Moles/Vol] 92 mmol/L 98-107 [facility] Work Phone: Cholesterol [Mass/Vol] 384 mg/dL <200 [facility] Work Phone: Comment on above: Moderate Icterus, Re sult may be falsely decreased. <200 mg/dL Desirable 200-240 mg/dL Borderline >240 mg/dL High Risk Glucose [Mass/Vol] 351 mg/dL 74-106 [facility] Work Phone: Comment on above: Moderate Lipemia, Re sult may be falsely increased.Glucose result greater than or equal to 200 mg/dLsuggests DIABETES MELLITUS per A.D.A. criteria. Potassium [Moles/Vol] 4.3 mmol/L 3.5-5.1 [facility] Work Phone: Comment on above: Moderate Hemolysis, Result may be falsely increased. Sodium [Moles/Vol] 127 mmol/L 136-145 [facility] Work Phone: Triglyceride [Mass/Vol] mg/dL W [facility] Work Phone: Comment on above: The drugs N-Acetylcy steine and Metamizole may falsely depress this assay. Laboratory - Chemistry and C hemistry - challengeon 06-13-2021 CO2 [Moles/Vol] 29.0 mmol/L 21.0-32.0 [facility] Work Phone: Urea nitrogen/Creatinine [Mass ratio] 18.6 mg/mg 10-20 [facility] Work Phone: No Panel Informationon 06-13 Estimated GFR (MDRD) Amer 101 mL/min >60 [facility] Work Phone: Comment on above: GFR Calc Estimated GFR (MDRD) Non-Af Amer 84 mL/min >60 [facility] Work Phone: Comment on above: Non- GFR Calc Serum or plasma calcium brenda urement (mass/volume)on 06-13-2021 Calcium [Mass/Vol] 7.1 mg/dL 8.5-10.1 [facility] Work Phone: Comment on above: Moderate Lipemia, Re sult may be falsely decreased. Serum or plasma cholesterol in HDL measurement (mass/volume)on 06-13-2021 Cholesterol in HDL [Mass/Vol] 32 mg/dL [facility] Work Phone: Comment on above: The drugs N-Acetylcy steine and Metamizole may falsely depress this assay. Reference Range HDL <40 mg/dL Low HDL Cholesterol HDL >or= 60 mg/dL High HDL Cholesterol Serum or plasma cholesterol in VLDL measurement (mass/volume)on 06-13-2021 Cholesterol in VLDL [Mass/Vol] 200 mg/dL 5-40 [facility] Work Phone: Comment on above: Previous reported re sult: TNP mg/dLEdited by: JOHN on 06/13/21:1716 Serum or plasma creatinine m easurement (mass/volume)on 06-13-2021 Creatinine [Mass/Vol] 0.97 mg/dL 0.70-1.30 [facility] Work Phone: Comment on above: Moderate Icterus, Re sult may be falsely decreased.The validity of the calculated GFR & GFRAA in patients over 70 years has not been determined. Clinical correlation is essential. Serum or plasma low density lipoprotein (LDL) cholesterol measurement (mass/volume)on 06-13-2021 Cholesterol in LDL [Mass/Vol] TNP [facility] Work Phone: Comment on above: Test not performed Serum or plasma urea nitroge n measurement (mass/volume)on 06-13-2021 Urea nitrogen [Mass/Vol] 18 mg/dL 7-18 [facility] Work Phone: Thin prep Papanicolaou smear with manual screeningon 06-13-2021 Thin prep Papanicolaou smear with manual screening 6 5-15 [facility] Work Phone: Whole blood hemoglobin A1c/t otal hemoglobin ratio (mass fraction)on 06-13-2021 HbA1c (Bld) [Mass fraction] 11.7 % 3.8-5.6 [facility] Work Phone: Comment on above: Normal < 5.7 % Predi abetic 5.7 - 6.4 % Diabetic >or= 6.5 % Please note range changes. CNOVon 04-01-2021 CNOV Office Visit (UCWSTR ) JAYLEN MEJIA ([id number]) 1960 M Date Time Provider Department 04/01/21 8:00 AM [facility] During your visit today, we recorded [...] cavity.) Vasomotor rhinitis describes a nonallergic hyperirritable nose, which may feel congested, blocked or wet. [...] the esophagus (more content not included)... Normal [facility] [place] Influenza virus A and B and SARS-CoV-2 (COVID-19) Ag panel - Upper respiratory specim SARS-CoV-2 (COVID-19) RNA HAYDER+probe Ql (Resp) [facility] Work Phone: No Panel Information SARS-CoV-2 & FLU Antigen (Rapid) [facility] Work Phone: Vital Signs Date Time Vital Sign Value Performing Clinician Facility 10-21-2024 16:52-0400 Body temperature 98.2 [degF] Dr. Xiang Rogers DO Work Phone: [facility] 10-21-2024 16:52-0400 Diastolic blood pressure 62 mm[Hg] Dr. Xiang Rogers DO Work Phone: [facility] 10-21-2024 16:52-0400 Heart rate 95 /min Dr. Xiang Rogers DO Work Phone: [facility] 10-21-2024 16:52-0400 Respiratory rate 20 /min Dr. Xiang Rogers DO Work Phone: [facility] 10-21-2024 16:52-0400 SaO2% (BldA) [Mass fraction] 99 % Dr. Xiang Rogers DO Work Phone: [facility] 10-21-2024 16:52-0400 Systolic blood pressure 108 mm[Hg] Dr. Xiang Rogers DO Work Phone: [facility] 10-21-2024 16:26-0400 Body height 180.[address] Xiang Rogers DO Work Phone: [facility] 10-21-2024 16:26-0400 Body mass index (BMI) [Ratio] 27 kg/m2 Dr. Xiang Rogers DO Work Phone: [facility] 10-21-2024 16:26-0400 Body weight 87.[address] Xiang Rogers DO Work Phone: [facility] 10-19-2024 23:27-0400 Body temperature 97.9 [degF] Dr. Xiang Rogers DO Work Phone: [facility] 10-19-2024 23:27-0400 Diastolic blood pressure 76 mm[Hg] Dr. Xiang Rogers DO Work Phone: [facility] 10-19-2024 23:27-0400 Heart rate 98 /min Dr. Xiang Rogers DO Work Phone: [facility] 10-19-2024 23:27-0400 Respiratory rate 16 /min Dr. Xiang Rogers DO Work Phone: [facility] 10-19-2024 23:27-0400 SaO2% (BldA) [Mass fraction] 96 % Dr. Xiang Rogers DO Work Phone: [facility] 10-19-2024 23:27-0400 Systolic blood pressure 114 mm[Hg] Dr. Xiang Rogers DO Work Phone: [facility] 10-19-2024 18:20-0400 Body height 180.[address] Xiang Rogers DO Work Phone: [facility] 10-19-2024 18:20-0400 Body mass index (BMI) [Ratio] 27 kg/m2 Dr. Xiang Rogers DO Work Phone: [facility] 10-19-2024 18:20-0400 Body weight 87.[address] Xiang Rogers DO Work Phone: [facility] 09-27-2024 09:59-0400 Body height 180.[address] Xiang Rogers DO Work Phone: [facility] 09-27-2024 09:59-0400 Body mass index (BMI) [Ratio] 26 kg/m2 Dr. Xiang Rogers DO Work Phone: [facility] 09-27-2024 09:59-0400 Body weight 84.[address] Xiang Rogers DO Work Phone: [facility] 09-27-2024 09:59-0400 Diastolic blood pressure 64 mm[Hg] Dr. Xiang Rogers DO Work Phone: [facility] 09-27-2024 09:59-0400 Heart rate 83 /min Dr. Xiang Rogers DO Work Phone: [facility] 09-27-2024 09:59-0400 Respiratory rate 18 /min Dr. Xiang Rogers DO Work Phone: [facility] 09-27-2024 09:59-0400 Systolic blood pressure 103 mm[Hg] Dr. Xiang Rogers DO Work Phone: [facility] 09-21-2024 14:17-0400 Body temperature 97.8 [degF] Dr. Xiang Rogers DO Work Phone: [facility] 09-21-2024 14:17-0400 Diastolic blood pressure 54 mm[Hg] Dr. Xiang Rogers DO Work Phone: [facility] 09-21-2024 14:17-0400 Heart rate 82 /min Dr. Xiang Rogers DO Work Phone: [facility] 09-21-2024 14:17-0400 Respiratory rate 14 /min Dr. Xiang Rogers DO Work Phone: [facility] 09-21-2024 14:17-0400 SaO2% (BldA) [Mass fraction] 97 % Dr. Xiang Rogers DO Work Phone: [facility] 09-21-2024 14:17-0400 Systolic blood pressure 90 mm[Hg] Dr. Xiang Rogers DO Work Phone: [facility] 09-19-2024 10:52-0400 Body height 180.[address] Xiang Rogers DO Work Phone: [facility] 09-19-2024 10:52-0400 Body weight 87.[address] Xiang Rogers DO Work Phone: [facility] 09-18-2024 15:22-0400 Body mass index (BMI) [Ratio] 26.9 kg/m2 Dr. Xiang Rogers DO Work Phone: [facility] 09-18-2024 14:00-0400 Diastolic blood pressure 70 mm[Hg] Dr. Xiang Rogers DO Work Phone: [facility] 09-18-2024 14:00-0400 Heart rate 103 /min Dr. Xiang Rogers DO Work Phone: [facility] 09-18-2024 14:00-0400 Respiratory rate 20 /min Dr. Xiang Rogers DO Work Phone: [facility] 09-18-2024 14:00-0400 SaO2% (BldA) [Mass fraction] 97 % Dr. Xiang Rogers DO Work Phone: [facility] 09-18-2024 14:00-0400 Systolic blood pressure 120 mm[Hg] Dr. Xiang Rogers DO Work Phone: [facility] 09-18-2024 13:37-0400 Body temperature 98.2 [degF] Dr. Xiang Rogers DO Work Phone: [facility] 09-18-2024 09:51-0400 Body height 180.[address] Xiang Rogers DO Work Phone: [facility] 09-18-2024 09:51-0400 Body mass index (BMI) [Ratio] 26.9 kg/m2 Dr. Xiang Rogers DO Work Phone: [facility] 09-18-2024 09:51-0400 Body weight 87.[address] Xiang Rogers DO Work Phone: [facility] 08-02-2024 11:29-0400 Body mass index (BMI) [Ratio] 26.6 kg/m2 Dr. Xiang Rogers DO Work Phone: [facility] 08-02-2024 11:29-0400 Body temperature 96.4 [degF] Dr. Xiang Rogers DO Work Phone: [facility] 08-02-2024 11:29-0400 Body weight 84.[address] Xiang Rogers DO Work Phone: [facility] 08-02-2024 11:29-0400 Diastolic blood pressure 66 mm[Hg] Dr. Xiang Rogers DO Work Phone: [facility] 08-02-2024 11:29-0400 Heart rate 87 /min Dr. Xiang Rogers DO Work Phone: [facility] 08-02-2024 11:29-0400 Respiratory rate 16 /min Dr. Xiang Rogers DO Work Phone: [facility] 08-02-2024 11:29-0400 SaO2% (BldA) [Mass fraction] 98 % Dr. Xiang Rogers DO Work Phone: [facility] 08-02-2024 11:29-0400 Systolic blood pressure 118 mm[Hg] Dr. Xiang Rogers DO Work Phone: [facility] 07-29-2024 23:02-0400 Body temperature 97.2 [degF] Dr. Xiang Rogers DO Work Phone: [facility] 07-29-2024 23:02-0400 Diastolic blood pressure 69 mm[Hg] Dr. Xiang Rogers DO Work Phone: [facility] 07-29-2024 23:02-0400 Heart rate 82 /min Dr. Xiang Rogers DO Work Phone: [facility] 07-29-2024 23:02-0400 Respiratory rate 16 /min Dr. Xiang Rogers DO Work Phone: [facility] 07-29-2024 23:02-0400 SaO2% (BldA) [Mass fraction] 95 % Dr. Xiang Rogers DO Work Phone: [facility] 07-29-2024 23:02-0400 Systolic blood pressure 117 mm[Hg] Dr. Xiang Rogers DO Work Phone: [facility] 07-29-2024 20:00-0400 Body mass index (BMI) [Ratio] 26.8 kg/m2 Dr. Xiang Rogers DO Work Phone: [facility] 07-29-2024 20:00-0400 Body weight 87.[address] Xiang Rogers DO Work Phone: [facility] 07-14-2024 10:05-0400 Body temperature 98.2 [degF] Dr. Xiang Rogers DO Work Phone: [facility] 07-14-2024 10:05-0400 Body weight 85.[address] Xiang Rogers DO Work Phone: [facility] 07-14-2024 10:05-0400 Diastolic blood pressure 60 mm[Hg] Dr. Xiang Rogers DO Work Phone: [facility] 07-14-2024 10:05-0400 Heart rate 90 /min Dr. Xiang Rogers DO Work Phone: [facility] 07-14-2024 10:05-0400 Respiratory rate 16 /min Dr. Xiang Rogers DO Work Phone: [facility] 07-14-2024 10:05-0400 SaO2% (BldA) [Mass fraction] 96 % Dr. Xiang Rogers DO Work Phone: [facility] 07-14-2024 10:05-0400 Systolic blood pressure 113 mm[Hg] Dr. Xiang Rogers DO Work Phone: [facility] 07-12-2024 10:03-0400 Body mass index (BMI) [Ratio] 25.9 kg/m2 Dr. Xiang Rogers DO Work Phone: [facility] 07-12-2024 10:03-0400 Body weight 84.[address] Xiang Rogers DO Work Phone: [facility] 07-12-2024 10:03-0400 Diastolic blood pressure 72 mm[Hg] Dr. Xiang Rogers DO Work Phone: [facility] 07-12-2024 10:03-0400 Heart rate 84 /min Dr. Xinag Rogers DO Work Phone: [facility] 07-12-2024 10:03-0400 Respiratory rate 20 /min Dr. Xiang Rogers DO Work Phone: [facility] 07-12-2024 10:03-0400 SaO2% (BldA) [Mass fraction] 96 % Dr. Xiang Rogers DO Work Phone: [facility] 07-12-2024 10:03-0400 Systolic blood pressure 120 mm[Hg] Dr. Xiang Rogers DO Work Phone: [facility] 06-20-2024 10:00-0400 Body temperature 98.1 [degF] Dr. Xiang Rogers DO Work Phone: [facility] 06-20-2024 10:00-0400 Diastolic blood pressure 68 mm[Hg] Dr. Xiang Rogers DO Work Phone: [facility] 06-20-2024 10:00-0400 Heart rate 74 /min Dr. Xiang Rogers DO Work Phone: [facility] 06-20-2024 10:00-0400 Respiratory rate 16 /min Dr. Xiang Rogers DO Work Phone: [facility] 06-20-2024 10:00-0400 SaO2% (BldA) [Mass fraction] 99 % Dr. Xiang Rogers DO Work Phone: [facility] 06-20-2024 10:00-0400 Systolic blood pressure 112 mm[Hg] Dr. Xiang Rogers DO Work Phone: [facility] 06-20-2024 04:34-0400 Body mass index (BMI) [Ratio] 26.7 kg/m2 Dr. Xiang Rogers DO Work Phone: [facility] 06-20-2024 04:34-0400 Body weight [address] Xiang Rogers DO Work Phone: [facility] 06-19-2024 10:35-0400 Inhaled oxygen flow rate 1 L/min Dr. Xiang Rogers DO Work Phone: [facility] 06-18-2024 05:54-0400 Inhaled oxygen concentration 30 % Dr. Xiang Rogers DO Work Phone: [facility] 05-21-2024 17:26-0500 Body mass index (BMI) [Ratio] 28.1 kg/m2 Dr. Xiang Rogers DO Work Phone: [facility] 05-21-2024 17:26-0500 Body temperature 98.1 [degF] Dr. Xiang Rogers DO Work Phone: [facility] 05-21-2024 17:26-0500 Body weight 88.[address] Xiang Rogers DO Work Phone: [facility] 05-21-2024 17:26-0500 Diastolic blood pressure 83 mm[Hg] Dr. Xiang Rogers DO Work Phone: [facility] 05-21-2024 17:26-0500 Heart rate 102 /min Dr. Xiang Rogers DO Work Phone: [facility] 05-21-2024 17:26-0500 Respiratory rate 16 /min Dr. Xiang Rogers DO Work Phone: [facility] 05-21-2024 17:26-0500 SaO2% (BldA) [Mass fraction] 97 % Dr. Xiang Rogres DO Work Phone: [facility] 05-21-2024 17:26-0500 Systolic blood pressure 115 mm[Hg] Dr. Xiang Rogers DO Work Phone: [facility] 05-17-2024 12:50-0500 Body temperature 98 [degF] Dr. Xiang Rogers DO Work Phone: [facility] 05-17-2024 12:50-0500 Body weight 86.[address] Xiang Rogers DO Work Phone: [facility] 05-17-2024 12:50-0500 Diastolic blood pressure 70 mm[Hg] Dr. Xiang Rogers DO Work Phone: [facility] 05-17-2024 12:50-0500 Heart rate 90 /min Dr. Xiang Rogers DO Work Phone: [facility] 05-17-2024 12:50-0500 Respiratory rate 16 /min Dr. Xiang Rogers DO Work Phone: [facility] 05-17-2024 12:50-0500 SaO2% (BldA) [Mass fraction] 97 % Dr. Xiang Rogers DO Work Phone: [facility] 05-17-2024 12:50-0500 Systolic blood pressure 108 mm[Hg] Dr. Xiang Rogers DO Work Phone: [facility] 05-03-2024 10:53-0500 Body mass index (BMI) [Ratio] 27.6 kg/m2 Dr. Xiang Rogers DO Work Phone: [facility] 05-03-2024 10:53-0500 Body temperature 97.8 [degF] Dr. Xiang Rogers DO Work Phone: [facility] 05-03-2024 10:53-0500 Body weight 87.[address] Xiang Rogers DO Work Phone: [facility] 05-03-2024 10:53-0500 Diastolic blood pressure 62 mm[Hg] Dr. Xiang Rogers DO Work Phone: [facility] 05-03-2024 10:53-0500 Heart rate 93 /min Dr. Xiang Rogers DO Work Phone: [facility] 05-03-2024 10:53-0500 Respiratory rate 18 /min Dr. Xiang Rogers DO Work Phone: [facility] 05-03-2024 10:53-0500 SaO2% (BldA) [Mass fraction] 97 % Dr. Xiang Rogers DO Work Phone: [facility] 05-03-2024 10:53-0500 Systolic blood pressure 120 mm[Hg] Dr. Xiang Rogers DO Work Phone: [facility] 04-20-2024 07:15-0500 Body weight 87.[address] Xiang Rogers DO Work Phone: [facility] 04-19-2024 08:51-0500 Body mass index (BMI) [Ratio] 27.8 kg/m2 Dr. Xiang Rogers DO Work Phone: [facility] 04-08-2024 13:27-0500 Body temperature 98.2 [degF] Dr. Xiang Rogers DO Work Phone: [facility] 04-08-2024 13:27-0500 Body weight 87.[address] Xiang Rogers DO Work Phone: [facility] 04-08-2024 13:27-0500 Diastolic blood pressure 74 mm[Hg] Dr. Xiang Rogers DO Work Phone: [facility] 04-08-2024 13:27-0500 Heart rate 78 /min Dr. Xiang Rogers DO Work Phone: [facility] 04-08-2024 13:27-0500 Respiratory rate 16 /min Dr. Xiang Rogers DO Work Phone: [facility] 04-08-2024 13:27-0500 SaO2% (BldA) [Mass fraction] 97 % Dr. Xiang Rogers DO Work Phone: [facility] 04-08-2024 13:27-0500 Systolic blood pressure 127 mm[Hg] Dr. Xiang Rogers DO Work Phone: [facility] 04-01-2024 09:51-0500 Body mass index (BMI) [Ratio] 27.8 kg/m2 Dr. Xiang Rogers DO Work Phone: [facility] 04-01-2024 09:51-0500 Body weight 87.[address] Xiang Rogers DO Work Phone: [facility] 04-01-2024 09:51-0500 Diastolic blood pressure 80 mm[Hg] Dr. Xiang Rogers DO Work Phone: [facility] 04-01-2024 09:51-0500 Heart rate 76 /min Dr. Xiang Rogers DO Work Phone: [facility] 04-01-2024 09:51-0500 Respiratory rate 18 /min Dr. Xiang Rogers DO Work Phone: [facility] 04-01-2024 09:51-0500 SaO2% (BldA) [Mass fraction] 99 % Dr. Xiang Rogers DO Work Phone: [facility] 04-01-2024 09:51-0500 Systolic blood pressure 136 mm[Hg] Dr. Xiang Rogers DO Work Phone: [facility] 03-22-2024 11:03-0500 Body temperature 97.8 [degF] Dr. Xiang Rogers DO Work Phone: [facility] 03-22-2024 11:03-0500 Body weight 87.[address] Xiang Rogers DO Work Phone: [facility] 03-22-2024 11:03-0500 Diastolic blood pressure 59 mm[Hg] Dr. Xiang Rogers DO Work Phone: [facility] 03-22-2024 11:03-0500 Heart rate 90 /min Dr. Xiang Rogers DO Work Phone: [facility] 03-22-2024 11:03-0500 Respiratory rate 16 /min Dr. Xiang Rogers DO Work Phone: [facility] 03-22-2024 11:03-0500 SaO2% (BldA) [Mass fraction] 97 % Dr. Xiang Rogers DO Work Phone: [facility] 03-22-2024 11:03-0500 Systolic blood pressure 112 mm[Hg] Dr. Xiang Rogers DO Work Phone: [facility] 02-24-2024 13:07-0500 Body mass index (BMI) [Ratio] 27.9 kg/m2 Dr. Xiang Rogers DO Work Phone: [facility] 02-24-2024 13:07-0500 Body temperature 97.6 [degF] Dr. Xiang Rogers DO Work Phone: [facility] 02-24-2024 13:07-0500 Body weight 88.[address] Xiang Rogers DO Work Phone: [facility] 02-24-2024 13:07-0500 Diastolic blood pressure 76 mm[Hg] Dr. Xiang Rogers DO Work Phone: [facility] 02-24-2024 13:07-0500 Heart rate 72 /min Dr. Xiang Rogers DO Work Phone: [facility] 02-24-2024 13:07-0500 Respiratory rate 16 /min Dr. Xiang Rogers DO Work Phone: [facility] 02-24-2024 13:07-0500 SaO2% (BldA) [Mass fraction] 97 % Dr. Xiang Rogers DO Work Phone: [facility] 02-24-2024 13:07-0500 Systolic blood pressure 126 mm[Hg] Dr. Xiang Rogers DO Work Phone: [facility] 02-24-2024 11:24-0500 Body temperature 98.4 [degF] Dr. Xiang Rogers DO Work Phone: [facility] 02-24-2024 11:24-0500 Body weight 88.[address] Xiang Rogers DO Work Phone: [facility] 02-24-2024 11:24-0500 Diastolic blood pressure 61 mm[Hg] Dr. Xiang Rogers DO Work Phone: [facility] 02-24-2024 11:24-0500 Heart rate 64 /min Dr. Xiang Rogers DO Work Phone: [facility] 02-24-2024 11:24-0500 Respiratory rate 16 /min Dr. Xiang Rogers DO Work Phone: [facility] 02-24-2024 11:24-0500 SaO2% (BldA) [Mass fraction] 98 % Dr. Xiang Rogers DO Work Phone: [facility] 02-24-2024 11:24-0500 Systolic blood pressure 105 mm[Hg] Dr. Xiang Rogers DO Work Phone: [facility] 12-31-2023 09:26-0400 Body mass index (BMI) [Ratio] 25.95 kg/m2 Gab Culver APRN.[employer] Work Phone: [facility] 12-31-2023 09:26-0400 Body temperature 97.5 [degF] Gab Culver APRN.[employer] Work Phone: [facility] 12-31-2023 09:26-0400 Body weight 84.4 kg Gab Culver APRN.[employer] Work Phone: [facility] 12-31-2023 09:26-0400 Diastolic blood pressure 75 mm[Hg] Gab Culver APRN.[employer] Work Phone: [facility] 12-31-2023 09:26-0400 Heart rate 78 /min Gab Culver APRN.[employer] Work Phone: [facility] 12-31-2023 09:26-0400 Respiratory rate 18 /min Gab Villegasalton POWER MANAGER.[employer] Work Phone: [facility] 12-31-2023 09:26-0400 SaO2% (BldA) [Mass fraction] 96 % Gab Villegasalton POWER MANAGER.[employer] Work Phone: [facility] 12-31-2023 09:26-0400 Systolic blood pressure 126 mm[Hg] Gab Villegasalton POWER MANAGER.[employer] Work Phone: [facility] 06-02-2023 12:53-0500 Body height 180.[address] Xiang Rogers Work Phone: [facility] 06-02-2023 12:53-0500 Body mass index (BMI) [Ratio] 26.9 kg/m2 Dr. Xiang Rogers Work Phone: [facility] 06-02-2023 12:53-0500 Body temperature 97.4 [degF] Dr. Xiang Rogers Work Phone: [facility] 06-02-2023 12:53-0500 Body weight 87.[address] Xiang Rogers Work Phone: [facility] 06-02-2023 12:53-0500 Diastolic blood pressure 66 mm[Hg] Dr. Xiang Rogers Work Phone: [facility] 06-02-2023 12:53-0500 Heart rate 60 /min Dr. Xiang Rogers Work Phone: [facility] 06-02-2023 12:53-0500 Respiratory rate 18 /min Dr. Xiang Rogers Work Phone: [facility] 06-02-2023 12:53-0500 SaO2% (BldA) [Mass fraction] 96 % Dr. Xiang Rogers Work Phone: [facility] 06-02-2023 12:53-0500 Systolic blood pressure 125 mm[Hg] Dr. Xiang Rogers Work Phone: [facility] 05-24-2023 02:38-0500 Body temperature 97.7 [degF] Dr. Xiang Rogers Work Phone: [facility] 05-24-2023 02:38-0500 Diastolic blood pressure 61 mm[Hg] Dr. Xiang Rogers Work Phone: [facility] 05-24-2023 02:38-0500 Heart rate 71 /min Dr. Xiang Rogers Work Phone: [facility] 05-24-2023 02:38-0500 Respiratory rate 18 /min Dr. Xiang Rogers Work Phone: [facility] 05-24-2023 02:38-0500 SaO2% (BldA) [Mass fraction] 96 % Dr. Xiang Rogers Work Phone: [facility] 05-24-2023 02:38-0500 Systolic blood pressure 99 mm[Hg] Dr. Xiang Rogers Work Phone: [facility] 05-24-2023 00:23-0500 Body height 180.[address] Xiang Rogers Work Phone: [facility] 05-24-2023 00:23-0500 Body mass index (BMI) [Ratio] 25.8 kg/m2 Dr. Xiang Rogers Work Phone: [facility] 05-24-2023 00:23-0500 Body weight [address] Xiang Rogers Work Phone: [facility] 04-25-2023 17:36-0500 Body temperature 95 [degF] Dr. Xiang Rogers Work Phone: [facility] 04-25-2023 17:36-0500 Diastolic blood pressure 73 mm[Hg] Dr. Xiang Rogers Work Phone: [facility] 04-25-2023 17:36-0500 Heart rate 67 /min Dr. Xiang Rogers Work Phone: [facility] 04-25-2023 17:36-0500 Respiratory rate 18 /min Dr. Xiang Rogers Work Phone: [facility] 04-25-2023 17:36-0500 Systolic blood pressure 139 mm[Hg] Dr. Xiang Rogers Work Phone: [facility] 04-25-2023 15:25-0500 Body height 180.[address] Xiang Rogers Work Phone: [facility] 04-25-2023 15:25-0500 Body mass index (BMI) [Ratio] 26.7 kg/m2 Dr. Xiang Rogers Work Phone: [facility] 04-25-2023 15:25-0500 Body weight 87.[address] Xiang Rogers Work Phone: [facility] 04-25-2023 15:25-0500 SaO2% (BldA) [Mass fraction] 96 % Dr. Xiang Rogers Work Phone: [facility] 04-15-2023 09:24-0500 Body height 180.[address] Xiang Rogers Work Phone: [facility] 04-15-2023 09:24-0500 Body mass index (BMI) [Ratio] 26.9 kg/m2 Dr. Xiang Rogers Work Phone: [facility] 04-15-2023 09:24-0500 Body temperature 97.2 [degF] Dr. Xiang Rogers Work Phone: [facility] 04-15-2023 09:24-0500 Body weight 87.[address] Xiang Rogers Work Phone: [facility] 04-15-2023 09:24-0500 Diastolic blood pressure 70 mm[Hg] Dr. Xiang Rogers Work Phone: [facility] 04-15-2023 09:24-0500 Heart rate 81 /min Dr. Xiang Rogers Work Phone: [facility] 04-15-2023 09:24-0500 Respiratory rate 16 /min Dr. Xiang Rogers Work Phone: [facility] 04-15-2023 09:24-0500 SaO2% (BldA) [Mass fraction] 98 % Dr. Xiang Rogers Work Phone: [facility] 04-15-2023 09:24-0500 Systolic blood pressure 128 mm[Hg] Dr. Xiang Rogers Work Phone: [facility] 01-26-2023 15:28-0400 Body mass index (BMI) [Ratio] 27.3 kg/m2 Dr. Xiang Rogers Work Phone: [facility] 01-26-2023 15:28-0400 Body weight 88.[address] Xiang Rogers Work Phone: [facility] 01-26-2023 15:28-0400 Diastolic blood pressure 56 mm[Hg] Dr. Xiang Rogers Work Phone: [facility] 01-26-2023 15:28-0400 Heart rate 70 /min Dr. Xiang Rogers Work Phone: [facility] 01-26-2023 15:28-0400 Respiratory rate 18 /min Dr. Xiang Rogers Work Phone: [facility] 01-26-2023 15:28-0400 Systolic blood pressure 118 mm[Hg] Dr. Xiang Rogers Work Phone: [facility] 01-13-2023 09:27-0400 Body mass index (BMI) [Ratio] 27 kg/m2 Dr. Xiang Rogers Work Phone: [facility] 01-13-2023 09:27-0400 Body temperature 98.4 [degF] Dr. Xiang Rogers Work Phone: [facility] 01-13-2023 09:27-0400 Body weight 87.[address] Xiang Rogers Work Phone: [facility] 01-13-2023 09:27-0400 Diastolic blood pressure 70 mm[Hg] Dr. Xiang Rogers Work Phone: [facility] 01-13-2023 09:27-0400 Heart rate 61 /min Dr. Xiang Rogers Work Phone: [facility] 01-13-2023 09:27-0400 Respiratory rate 16 /min Dr. Xiang Rogers Work Phone: [facility] 01-13-2023 09:27-0400 SaO2% (BldA) [Mass fraction] 97 % Dr. Xiang Rogers Work Phone: [facility] 01-13-2023 09:27-0400 Systolic blood pressure 120 mm[Hg] Dr. Xiang Rogers Work Phone: [facility] 05-21-2022 01:34-0500 Body height 180.[address] Xiang Rogers Work Phone: [facility] 05-21-2022 01:34-0500 Body mass index (BMI) [Ratio] 29.1 kg/m2 Dr. Xiang Rogers Work Phone: [facility] 05-21-2022 01:34-0500 Body temperature 98.8 [degF] Dr. Xiang Rogers Work Phone: [facility] 05-21-2022 01:34-0500 Body weight 94.[address] Xiang Rogers Work Phone: [facility] 05-21-2022 01:34-0500 Diastolic blood pressure 79 mm[Hg] Dr. Xiang Rogers Work Phone: [facility] 05-21-2022 01:34-0500 Heart rate 74 /min Dr. Xiang Rogers Work Phone: [facility] 05-21-2022 01:34-0500 Respiratory rate 17 /min Dr. Xiang Rogers Work Phone: [facility] 05-21-2022 01:34-0500 SaO2% (BldA) [Mass fraction] 98 % Dr. Xiang Rogers Work Phone: [facility] 05-21-2022 01:34-0500 Systolic blood pressure 143 mm[Hg] Dr. Xiang Rogers Work Phone: [facility] 05-19-2022 13:35-0500 Body mass index (BMI) [Ratio] 28.5 kg/m2 Dr. Xiang Rogers Work Phone: [facility] 05-19-2022 13:35-0500 Body weight 92.[address] Xiang Rogers Work Phone: [facility] 05-19-2022 13:35-0500 Diastolic blood pressure 69 mm[Hg] Dr. Xiang Rogers Work Phone: [facility] 05-19-2022 13:35-0500 Heart rate 62 /min Dr. Xiang Rogers Work Phone: [facility] 05-19-2022 13:35-0500 Respiratory rate 18 /min Dr. Xiang Rogers Work Phone: [facility] 05-19-2022 13:35-0500 SaO2% (BldA) [Mass fraction] 96 % Dr. Xiang Rogers Work Phone: [facility] 05-19-2022 13:35-0500 Systolic blood pressure 128 mm[Hg] Dr. Xiang Rogers Work Phone: [facility] 04-24-2022 13:27-0500 Body mass index (BMI) [Ratio] 28.3 kg/m2 Dr. Xiang Rogers Work Phone: [facility] 04-24-2022 13:27-0500 Body temperature 98.3 [degF] Dr. Xiang Rogers Work Phone: [facility] 04-24-2022 13:27-0500 Body weight 92.[address] Xiang Rogers Work Phone: [facility] 04-24-2022 13:27-0500 Diastolic blood pressure 62 mm[Hg] Dr. Xiang Rogers Work Phone: [facility] 04-24-2022 13:27-0500 Heart rate 61 /min Dr. Xiang Rogers Work Phone: [facility] 04-24-2022 13:27-0500 Respiratory rate 14 /min Dr. Xiang Rogers Work Phone: [facility] 04-24-2022 13:27-0500 SaO2% (BldA) [Mass fraction] 97 % Dr. Xiang Rogers Work Phone: [facility] 04-24-2022 13:27-0500 Systolic blood pressure 104 mm[Hg] Dr. Xiang Rogers Work Phone: [facility] 04-19-2022 14:53-0500 SaO2% (BldA) [Mass fraction] 95 % Dr. Xiang Rogers Work Phone: [facility] 04-19-2022 09:30-0500 Body temperature 97.9 [degF] Dr. Xiang Rogers Work Phone: [facility] 04-19-2022 09:30-0500 Diastolic blood pressure 77 mm[Hg] Dr. Xiang Rogers Work Phone: [facility] 04-19-2022 09:30-0500 Heart rate 79 /min Dr. Xiang Rogers Work Phone: [facility] 04-19-2022 09:30-0500 Respiratory rate 20 /min Dr. Xiang Rogers Work Phone: [facility] 04-19-2022 09:30-0500 Systolic blood pressure 110 mm[Hg] Dr. Xiang Rogers Work Phone: [facility] 04-18-2022 10:11-0500 Body weight 93.[address] Xiang Rogers Work Phone: [facility] 04-18-2022 05:51-0500 Body temperature 98 [degF] Dr. Xiang Rogers Work Phone: [facility] Work Phone: 04-18-2022 05:51-0500 Diastolic blood pressure 76 mm[Hg] Dr. Xiang Rogers Work Phone: [facility] Work Phone: 04-18-2022 05:51-0500 Heart rate 80 /min Dr. Xiang Rogers Work Phone: [facility] Work Phone: 04-18-2022 05:51-0500 Respiratory rate 18 /min Dr. Xiang Rogers Work Phone: [facility] Work Phone: 04-18-2022 05:51-0500 SaO2% (BldA) [Mass fraction] 92 % Dr. Xiang Rogers Work Phone: [facility] Work Phone: 04-18-2022 05:51-0500 Systolic blood pressure 123 mm[Hg] Dr. Xiang Rogers Work Phone: [facility] Work Phone: 04-18-2022 01:36-0500 Body height 180.[address] Xiang Rogers Work Phone: [facility] Work Phone: 04-18-2022 01:36-0500 Body mass index (BMI) [Ratio] 28.6 kg/m2 Dr. Xiang Rogers Work Phone: [facility] 04-18-2022 01:36-0500 Body weight 93.[address] Xiang Rogers Work Phone: [facility] Work Phone: 04-09-2022 14:00-0500 Body mass index (BMI) [Ratio] 27.4 kg/m2 Dr. Xiang Rogers Work Phone: [facility] 04-09-2022 14:00-0500 Body temperature 98.4 [degF] Dr. Xiang Rogers Work Phone: [facility] 04-09-2022 14:00-0500 Body weight 89.[address] Xiang Rogers Work Phone: [facility] 04-09-2022 14:00-0500 Diastolic blood pressure 78 mm[Hg] Dr. Xiang Rogers Work Phone: [facility] 04-09-2022 14:00-0500 Heart rate 65 /min Dr. Xiang Rogers Work Phone: [facility] 04-09-2022 14:00-0500 Respiratory rate 16 /min Dr. Xiang Rogers Work Phone: [facility] 04-09-2022 14:00-0500 SaO2% (BldA) [Mass fraction] 99 % Dr. Xiang Rogers Work Phone: [facility] 04-09-2022 14:00-0500 Systolic blood pressure 132 mm[Hg] Dr. Xiang Rogers Work Phone: [facility] 03-11-2022 12:30-0500 Body height 180.[address] Xiang Rogers Work Phone: [facility] Work Phone: 03-11-2022 12:30-0500 Body mass index (BMI) [Ratio] 26.9 kg/m2 Dr. Xiang Rogers Work Phone: [facility] 03-11-2022 12:30-0500 Body temperature 98 [degF] Dr. Xiang Rogers Work Phone: [facility] 03-11-2022 12:30-0500 Body weight 87.[address] Xiang Rogers Work Phone: [facility] 03-11-2022 12:30-0500 Diastolic blood pressure 76 mm[Hg] Dr. Xiang Rogers Work Phone: [facility] 03-11-2022 12:30-0500 Heart rate 87 /min Dr. Xiang Rogers Work Phone: [facility] 03-11-2022 12:30-0500 Respiratory rate 16 /min Dr. Xiang Rogers Work Phone: [facility] 03-11-2022 12:30-0500 SaO2% (BldA) [Mass fraction] 97 % Dr. Xiang Rogers Work Phone: [facility] 03-11-2022 12:30-0500 Systolic blood pressure 153 mm[Hg] Dr. Xiang Rogers Work Phone: [facility] 03-01-2022 19:47-0500 Body height 180.[address] Xiang Rogers Work Phone: [facility] Work Phone: 03-01-2022 19:47-0500 Body mass index (BMI) [Ratio] 27.9 kg/m2 Dr. Xiang Rogers Work Phone: [facility] 03-01-2022 19:47-0500 Body temperature 96.8 [degF] Dr. Xiang Rogers Work Phone: [facility] 03-01-2022 19:47-0500 Body weight [address] Xiang Rogers Work Phone: [facility] 03-01-2022 19:47-0500 Diastolic blood pressure 75 mm[Hg] Dr. Xiang Rogers Work Phone: [facility] 03-01-2022 19:47-0500 Heart rate 103 /min Dr. Xiang Rogers Work Phone: [facility] 03-01-2022 19:47-0500 Respiratory rate 16 /min Dr. Xiang Rogers Work Phone: [facility] 03-01-2022 19:47-0500 SaO2% (BldA) [Mass fraction] 94 % Dr. Xiang Rogers Work Phone: [facility] 03-01-2022 19:47-0500 Systolic blood pressure 141 mm[Hg] Dr. Xiang Rogers Work Phone: [facility] 02-04-2022 08:30-0400 Body temperature 98.01 [degF] Yamilka Parekh MD Work Phone: [facility] 02-04-2022 08:30-0400 Body weight 87.18 kg Yamilka Parekh MD Work Phone: [facility] 02-04-2022 08:30-0400 Diastolic blood pressure 74 mm[Hg] Yamilka Parekh MD Work Phone: [facility] 02-04-2022 08:30-0400 Heart rate 80 /min Yamilka Parekh MD Work Phone: [facility] 02-04-2022 08:30-0400 SaO2% (BldA) [Mass fraction] 98 % Yamilka Parekh MD Work Phone: [facility] 02-04-2022 08:30-0400 Systolic blood pressure 128 mm[Hg] Yamilka Parekh MD Work Phone: [facility] 01-28-2022 10:40-0400 Body height 180.3 cm Yamilka Parekh MD Work Phone: [facility] 01-28-2022 10:40-0400 Body temperature 97.3 [degF] Yamilka Parekh MD Work Phone: [facility] 01-28-2022 10:40-0400 Body weight 87.36 kg Yamilka Parekh MD Work Phone: [facility] 01-28-2022 10:40-0400 Diastolic blood pressure 70 mm[Hg] Yamilka Parekh MD Work Phone: [facility] 01-28-2022 10:40-0400 Heart rate 79 /min Yamikla Parekh MD Work Phone: [facility] 01-28-2022 10:40-0400 SaO2% (BldA) [Mass fraction] 98 % Yamilka Parekh MD Work Phone: [facility] 01-28-2022 10:40-0400 Systolic blood pressure 124 mm[Hg] Yamilka Parekh MD Work Phone: [facility] 01-06-2022 09:25-0400 Body height 180.3 cm Yamilka Parekh MD Work Phone: [facility] 01-06-2022 09:25-0400 Body temperature 97.7 [degF] Yamilka Parekh MD Work Phone: [facility] 01-06-2022 09:25-0400 Body weight 88.27 kg Yamilka Parekh MD Work Phone: [facility] 01-06-2022 09:25-0400 Diastolic blood pressure 77 mm[Hg] Yamilka Parekh MD Work Phone: [facility] 01-06-2022 09:25-0400 Heart rate 84 /min Yamilka Parekh MD Work Phone: [facility] 01-06-2022 09:25-0400 SaO2% (BldA) [Mass fraction] 99 % Yamilka Parekh MD Work Phone: [facility] 01-06-2022 09:25-0400 Systolic blood pressure 160 mm[Hg] Yamilka Parekh MD Work Phone: [facility] 01-01-2022 14:08-0400 Body height 180.[address] Xiang Rogers Work Phone: [facility] Work Phone: 01-01-2022 14:08-0400 Body mass index (BMI) [Ratio] 27.3 kg/m2 Dr. Xiang Rogers Work Phone: [facility] Work Phone: 01-01-2022 14:08-0400 Body temperature 98.5 [degF] Dr. Xiang Rogers Work Phone: [facility] Work Phone: 01-01-2022 14:08-0400 Body weight 89.[address] Xiang Rogers Work Phone: [facility] Work Phone: 01-01-2022 14:08-0400 Diastolic blood pressure 64 mm[Hg] Dr. Xiang Rogers Work Phone: [facility] Work Phone: 01-01-2022 14:08-0400 Heart rate 64 /min Dr. Xiang Rogers Work Phone: [facility] Work Phone: 01-01-2022 14:08-0400 Respiratory rate 18 /min Dr. Xiang Rogers Work Phone: [facility] Work Phone: 01-01-2022 14:08-0400 SaO2% (BldA) [Mass fraction] 95 % Dr. Xiang Rogers Work Phone: [facility] Work Phone: 01-01-2022 14:08-0400 Systolic blood pressure 122 mm[Hg] Dr. Xiang Rogers Work Phone: [facility] Work Phone: 12-09-2021 01:16-0400 Diastolic blood pressure 71 mm[Hg] Dr. Xiang Rogers Work Phone: [facility] Work Phone: 12-09-2021 01:16-0400 Heart rate 74 /min Dr. Xiang Rogers Work Phone: [facility] Work Phone: 12-09-2021 01:16-0400 Respiratory rate 19 /min Dr. Xiang Rogers Work Phone: [facility] Work Phone: 12-09-2021 01:16-0400 SaO2% (BldA) [Mass fraction] 95 % Dr. Xiang Rogers Work Phone: [facility] Work Phone: 12-09-2021 01:16-0400 Systolic blood pressure 144 mm[Hg] Dr. Xiang Rogers Work Phone: [facility] Work Phone: 12-08-2021 23:18-0400 Body height 180.[address] Xiang Rogers Work Phone: [facility] Work Phone: 12-08-2021 23:18-0400 Body mass index (BMI) [Ratio] 26.4 kg/m2 Dr. Xiang Rogers Work Phone: [facility] Work Phone: 12-08-2021 23:18-0400 Body temperature 97.9 [degF] Dr. Xiang Rogers Work Phone: [facility] Work Phone: 12-08-2021 23:18-0400 Body weight 86.[address] Xiang Rogers Work Phone: [facility] Work Phone: 09-18-2021 14:32-0400 Body mass index (BMI) [Ratio] 26.7 kg/m2 Dr. Xiang Rogers Work Phone: [facility] Work Phone: 09-18-2021 14:32-0400 Body temperature 97.2 [degF] Dr. Xiang Rogers Work Phone: [facility] Work Phone: 09-18-2021 14:32-0400 Body weight 87.[address] Xiang Rogers Work Phone: [facility] Work Phone: 09-18-2021 14:32-0400 Diastolic blood pressure 70 mm[Hg] Dr. Xiang Rogers Work Phone: [facility] Work Phone: 09-18-2021 14:32-0400 Heart rate 86 /min Dr. Xiang Rogers Work Phone: [facility] Work Phone: 09-18-2021 14:32-0400 Respiratory rate 16 /min Dr. Xiang Rogers Work Phone: [facility] Work Phone: 09-18-2021 14:32-0400 SaO2% (BldA) [Mass fraction] 97 % Dr. Xiang Rogers Work Phone: [facility] Work Phone: 09-18-2021 14:32-0400 Systolic blood pressure 116 mm[Hg] Dr. Xiang Rogers Work Phone: [facility] Work Phone: 07-19-2021 00:14-0400 Heart rate 78 /min Dr. Xiang Rogers Work Phone: [facility] Work Phone: 07-19-2021 00:14-0400 Respiratory rate 18 /min Dr. Xiang Rogers Work Phone: [facility] Work Phone: 07-19-2021 00:14-0400 SaO2% (BldA) [Mass fraction] 95 % Dr. Xiang Rogers Work Phone: [facility] Work Phone: 07-18-2021 20:48-0400 Body height 180.[address] Xiang Rogers Work Phone: [facility] Work Phone: 07-18-2021 20:48-0400 Body mass index (BMI) [Ratio] 26.9 kg/m2 Dr. Xiang Rogers Work Phone: [facility] Work Phone: 07-18-2021 20:48-0400 Body temperature 98.8 [degF] Dr. Xiang Rogers Work Phone: [facility] Work Phone: 07-18-2021 20:48-0400 Body weight 87.[address] Xiang Rogers Work Phone: [facility] Work Phone: 07-18-2021 20:48-0400 Diastolic blood pressure 83 mm[Hg] Dr. Xiang Rogers Work Phone: [facility] Work Phone: 07-18-2021 20:48-0400 Systolic blood pressure 151 mm[Hg] Dr. Xiang Rogers Work Phone: [facility] Work Phone: 07-18-2021 12:52-0400 Body temperature 98.01 [degF] Gab Culver APRN.CNP Work Phone: [facility] 07-18-2021 12:52-0400 Body weight 88 kg Gab [facility] [employer] Work Phone: [facility] 07-18-2021 12:52-0400 Diastolic blood pressure 74 mm[Hg] [facility] [employer] MA[employer]GER[employer] Work Phone: [facility] 07-18-2021 12:52-0400 Heart rate 100 /min [facility] P[employer] MA[employer]GER[employer] Work Phone: [facility] 07-18-2021 12:52-0400 Respiratory rate 18 /min Gab [facility] POWER MANAGER[employer] Work Phone: [facility] 07-18-2021 12:52-0400 SaO2% (BldA) [Mass fraction] 96 % [facility] P[employer] MANAGER[employer] Work Phone: [facility] 07-18-2021 12:52-0400 Systolic blood pressure 122 mm[Hg] Gab [facility] P[employer] MANAGER[employer] Work Phone: [facility] 06-13-2021 13:57-0500 Body temperature 97.8 [degF] Dr. Xiang Rogers Work Phone: [facility] Work Phone: 06-13-2021 13:57-0500 Body weight 88.[address] Xiang Rogers Work Phone: [facility] Work Phone: 06-13-2021 13:57-0500 Diastolic blood pressure 74 mm[Hg] Dr. Xiang Rogers Work Phone: [facility] Work Phone: 06-13-2021 13:57-0500 Heart rate 68 /min Dr. Xiang Rogers Work Phone: [facility] Work Phone: 06-13-2021 13:57-0500 Respiratory rate 16 /min Dr. Xiang Rogers Work Phone: [facility] Work Phone: 06-13-2021 13:57-0500 SaO2% (BldA) [Mass fraction] 98 % Dr. Xiang Rogers Work Phone: [facility] Work Phone: 06-13-2021 13:57-0500 Systolic blood pressure 130 mm[Hg] Dr. Xiang Rogers Work Phone: [facility] Work Phone: Encounters Encounter Date Encounter Type Care Provider Facility Start: 10-21-2024 End: 10-21-2024 Dr. Xiang Rogers DO Work Phone: -Emergency Department Work Phone: Start: 10-21-2024 End: 10-21-2024 Emergency department patient visit Dr. Xiang Rogers DO Work Phone: -Emergency Department Start: 10-19-2024 End: 10-19-2024 Dr. Xiang Rogers DO Work Phone: -Emergency Department Work Phone: Start: 10-19-2024 End: 10-19-2024 Emergency department patient visit Dr. Xiang Rogers DO Work Phone: -Emergency Department Start: 10-11-2024 ambulatory Ronit Galvez NP Facili ty:[facility] Start: 09-27-2024 End: 09-27-2024 Magaly DEVINE -[facility] Work Phone: Start: 09-27-2024 End: 09-27-[address] Xiang Rogers DO Work Phone: [facility] Work Phone: Start: 09-21-2024 Dr. Donna Wolff MD -[facility] Work Phone: Start: 09-20-2024 Dr. Seth morales DO -[facility] Work Phone: Start: 09-19-2024 ambulatory Calos Quinn Facility:[facility] Start: 09-19-2024 Dr. Seth morales DO -[facility] Work Phone: Start: 09-18-2024 End: 09-21-2024 ambulatory Clinton Soares Facility:[facility] Start: 09-18-2024 End: 09-21-2024 Evaluation and management of inpatient Dr. Xiang Rogers DO Work Phone: [facility] Work Phone: Start: 09-18-2024 End: 09-21-2024 Dr. Clinton Soares DO -Progressive Care Unit Work Phone: Start: 09-08-2024 End: 09-08-[address] Xiang Rogers DO Work Phone: [facility] Work Phone: Start: 09-08-2024 End: 09-08-2024 Dr. Saúl Flowers MD -[facility] Start: 09-08-2024 End: 09-08-2024 ambulatory Lubna Manley Facility:[facility] Start: 08-02-2024 End: 08-02-2024 Dr. Xiang Will DO -[facility] Work Phone: Start: 08-02-2024 End: 08-02-2024 ambulatory Xiang Rogers Facility:[facility] Start: 07-29-2024 End: 07-29-2024 Dr. Lawson Castellon DO -Emergency Departmen t Work Phone: Start: 07-29-2024 End: 07-29-2024 Emergency department patient visit Lawson Castellon Facility:[facility] Start: 07-14-2024 End: 07-14-2024 Lubna DEVINE -[facility] Work Phone: Start: 07-14-2024 End: 07-14-2024 ambulatory Xiang Rogers Facility:[facility] Start: 07-12-2024 End: 07-12-2024 Ronit GARSIA -[facility] Work Phone: Start: 07-12-2024 End: 07-12-2024 ambulatory Xiang Rogers Facility:[facility] Start: 06-20-2024 ambulatory Xiang Rogers Facilit y:[facility] Start: 06-20-2024 Dr. Seth morales DO -[facility] Work Phone: Start: 06-20-2024 Dr. Calos Quinn MD -[facility] Start: 06-19-2024 Dr. Alexandru Mckeon MD [facility] Start: 06-19-2024 Dr. Donna Wolff MD -[facility] Work Phone: Start: 06-18-2024 ambulatory Alexandru Mckeon Fa cility:[facility] Start: 06-18-2024 Dr. Alexandru Mckeon MD -[facility] Start: 06-18-2024 ambulatory Steve elvira Odilon Facili ty:[facility] Start: 06-18-2024 End: 06-20-2024 Evaluation and management of inpatient Steve RamirezOdilon Facility:[facility] Start: 06-18-2024 End: 06-20-2024 Dr. Seth Carrington DO -Progressive Care Unit Work Phone: Start: 06-15-2024 ambulatory Magaly DEVINE Facility:[facility] Start: 06-15-2024 Non-patient / Non-visit Garret Saldana [facility] Start: 06-15-2024 Magaly DEVINE [facility] Start: 06-13-2024 Non-patient / Non-visit Dr. Saúl talbert MD -[facility] Start: 06-13-2024 End: 06-13-[address] Xiang Rogers DO Work Phone: [facility] Work Phone: Start: 06-13-2024 End: 06-13-2024 Patient encounter procedure Lubna DEVINE -Cardiovascular Services Work Phone: Start: 06-13-2024 End: 06-13-2024 Dr. Saúl Flowers MD -[facility] Start: 06-13-2024 End: 06-13-2024 ambulatory Lubna Manley Facility:[facility] Start: 06-07-2024 ambulatory Xiang Rogers Facilit y:[facility] Start: 05-21-2024 End: 05-21-2024 Dr. Saúl Aguilar DO -Emergency Departme nt Work Phone: Start: 05-21-2024 End: 05-21-2024 Emergency department patient visit Dr. Saúl Aguilar DO -Emergency Department Work Phone: Start: 05-17-2024 End: 05-17-2024 Patient encounter procedure Lubna DEVINE -[facility] Work Phone: Start: 05-17-2024 End: 05-17-2024 Lubna DEVINE -[facility] Work Phone: Start: 05-17-2024 End: 05-17-2024 ambulatory Xiang Rogers Facility:[facility] Start: 05-09-2024 ambulatory Xiang Rogers Facilit y:[facility] Start: 05-09-2024 Non-patient / Non-visit Dr. Ren [facility] -[facility] Start: 05-09-2024 End: 05-09-2024 Patient encounter procedure Magaly DEVINE -Cardiovascular Services Work Phone: Start: 05-09-2024 End: 05-09-2024 ambulatory Maglay DEVINE Facility:[facility] Start: 05-03-2024 End: 05-03-[address] Xiang Will DO -[facility] Work Phone: Start: 05-03-2024 End: 05-03-2024 ambulatory Xiang Rogers Facility:[facility] Start: 04-20-2024 ambulatory Saúl Flowers Facility:[facility] Start: 04-20-2024 Non-patient / Non-visit Dr. Saúl talbert MD -[facility] Start: 04-20-2024 End: 04-20-2024 Admission to same day surgery center Dr. Saúl Flowers MD -Fruit Shipper/Special Procedures Work Phone: Start: 04-20-2024 End: 04-20-2024 ambulatory Xiang Rogers Facility:[facility] Start: 04-08-2024 End: 04-08-2024 Patient encounter procedure Lubna DEVINE -[facility] Work Phone: Start: 04-08-2024 End: 04-08-2024 ambulatory Xiang Rogers Facility:[facility] Start: 04-01-2024 End: 04-01-2024 Patient encounter procedure Magaly DEVINE -[place] [facility] Work Phone: Start: 04-01-2024 End: 04-01-2024 ambulatory Xiang Rogers Facility:[facility] Start: 03-29-2024 End: 03-29-2024 Patient encounter procedure Lubna DEVINE -[facility] Work Phone: Start: 03-29-2024 End: 03-29-2024 ambulatory Xiang Rogers Facility:[facility] Start: 03-22-2024 End: 03-22-2024 Patient encounter procedure Lubna DEVINE -[facility] Work Phone: Start: 03-22-2024 End: 03-22-2024 ambulatory Xiang Rogers Facility:[facility] Start: 03-09-2024 ambulatory Xiang Rogers Facilit y:[facility] Start: 03-09-2024 Non-patient / Non-visit Dr. Saúl talbert MD -[facility] Start: 03-09-2024 End: 03-09-2024 Patient encounter procedure Jose Small DPOmar -Cardiovascular Services Work Phone: Start: 03-09-2024 End: 03-09-2024 ambulatory Jose Small Facility:[facility] Start: 02-24-2024 End: 02-24-[address] Xiang Will DO -[facility] Work Phone: Start: 02-24-2024 End: 02-24-2024 ambulatory Xiang Rogers Facility:[facility] Start: 02-24-2024 End: 02-24-2024 Patient encounter procedure Lubna DEVINE -[facility] Work Phone: Start: 02-24-2024 End: 02-24-2024 ambulatory Xiang Rogers Facility:[facility] Start: 02-23-2024 End: 02-23-2024 ambulatory Ronit Galvez NP Facility:[facility] Start: 01-27-2024 ambulatory Xiang Rogers Facilit y:[facility] Start: 01-07-2024 End: 01-07-2024 ambulatory Xiang Rogers Facility:[facility] Start: 12-31-2023 End: 12-31-2023 Office outpatient visit 25 minutes Gab Culver APRN.[employer]HER [employer] SHEARER Work Phone: [facility] Comment on above: Sinobronchitis (Prim jagjit Dx) Start: 11-13-2023 ambulatory Xiang Rogers Facilit y:[facility] Start: 11-13-2023 End: 11-13-2023 ambulatory Xiang Rogers Facility:[facility] Start: 10-28-2023 End: 10-28-2023 ambulatory Xiang Rogers Facility:[facility] Start: 06-02-2023 End: 06-02-[address] Xiang Rogers Work Phone: [facility] Work Phone: Start: 06-02-2023 End: 06-02-[address] Xiang Rogers Work Phone: [facility] Work Phone: Start: 05-24-2023 End: 05-24-2023 Emergency department patient visit Dr. Xiang Rogers Work Phone: [facility]-Emergency Department Work Phone: Start: 04-25-2023 End: 04-25-2023 Emergency department patient visit Dr. Xiang Rogers Work Phone: [facility]-Emergency Department Work Phone: Start: 04-15-2023 End: 04-15-[address] Xiang Rogers Work Phone: [facility] Work Phone: Start: 04-15-2023 End: 04-15-[address] Xiang Rogers Work Phone: [facility] Work Phone: Start: 01-26-2023 End: 01-26-[address] Xiang Rogers Work Phone: [facility] Work Phone: Start: 01-13-2023 End: 01-13-[address] Xiang Rogers Work Phone: [facility] Work Phone: Start: 06-02-2022 End: 06-02-[address] Xiang Rogers Work Phone: [facility] Work Phone: Start: 06-02-2022 End: 06-02-[address] Xiang Rogers Work Phone: [facility]-Laboratory Start: 05-23-2022 Non-patient / Non-visit Dr. Velazquez Work Phone: [facility] Start: 05-21-2022 End: 05-21-2022 Emergency department patient visit Dr. Xiang Rogers Work Phone: [facility]-Emergency Department Start: 05-19-2022 End: 05-19-[address] Xiang Rogers Work Phone: [facility] Start: 04-24-2022 End: 04-24-[address] Xiang Rogers Work Phone: [facility] Internal [facility] Start: 04-21-2022 Non-patient / Non-visit Dr. Velazquez Work Phone: [facility] Start: 04-19-2022 Non-patient / Non-visit Dr. Velazquez Work Phone: [facility] Start: 04-19-2022 Non-patient / Non-visit Dr. Velazquez Work Phone: [facility] Start: 04-18-2022 Non-patient / Non-visit Dr. Velazquez Work Phone: [facility] Start: 04-18-2022 End: 04-19-2022 Evaluation and management of inpatient Dr. Xiang Rogers Work Phone: [facility]-Intensive Care Unit Start: 04-09-2022 End: 04-09-[address] Xiang Rogers Work Phone: [facility] Internal Medicine Start: 03-11-2022 End: 03-11-[address] Xiang Rogers Work Phone: [facility] Work Phone: Start: 03-11-2022 End: 03-11-[address] Xiang Rogers Work Phone: [facility] Start: 03-01-2022 End: 03-01-2022 Emergency department patient visit Dr. Xiang Rogers Work Phone: [facility]-Emergency Department Start: 02-04-2022 End: 02-04-2022 ambulatory YAMILKA PAREKH Facility:[facility] Start: 02-04-2022 End: 02-04-2022 Patient encounter procedure Yamilka Parekh MD Work Phone: General Surgery Comment on above: Recurrent left ingui nal hernia (Primary Dx) Start: 01-28-2022 End: 01-28-2022 ambulatory YAMILKA PAREKH Facility:[facility] Start: 01-28-2022 End: 01-28-2022 Patient encounter procedure Yamilka Parekh MD Work Phone: General Surgery Comment on above: Left groin pain (Ruchi frantz Dx) Start: 01-28-2022 End: 01-28-2022 Subsequent hospital visit by physician Clotilde [facility] (I-Stat) Work Phone: Cat Scan Comment on above: Left groin pain [R10 .32] Start: 01-08-2022 Non-patient / Non-visit Dr. Velazquez Work Phone: [facility] Internal [facility] Start: 01-06-2022 End: 01-06-2022 ambulatory YAMILKA PAREKH Facility:[facility] Start: 01-06-2022 End: 01-06-2022 Patient encounter procedure Yamilka Parekh MD Work Phone: General Surgery Comment on above: Left groin pain (Ruchi frantz Dx) Start: 01-01-2022 End: 01-01-[address] Xiang Rogers Work Phone: [facility] Work Phone: Start: 01-01-2022 End: 01-01-[address] Xiang Rogers Work Phone: [facility] Internal [facility] Start: 12-08-2021 End: 12-09-2021 Emergency department patient visit Dr. Xiang Rogers Work Phone: [facility]-Emergency Department Start: 09-18-2021 End: 09-18-[address] Xiang Rogers Work Phone: [facility] Internal [facility] Start: 07-18-2021 End: 07-19-2021 Emergency department patient visit Dr. Xiang Rogers Work Phone: [facility]-Emergency Department Start: 07-18-2021 End: 07-18-2021 ambulatory YAMILKA PAREKH Facility:[facility] Start: 07-18-2021 End: 07-18-2021 Patient encounter procedure Gab Culver APRN.CNP Work Phone: [facility] Comment on above: URI with cough and c ongestion (Primary Dx) Start: 06-13-2021 End: 06-13-[address] Xiang Rogers Work Phone: [facility]-Laboratory, [facility] Start: 04-01-2021 End: 04-01-2021 ambulatory YAMILKA PAREKH [facility] Procedures Date Procedure Procedure Detail Performing Clinician Start: 10-19-2024 Blood count smear mc rscp w/mnl difrntl wbc count Dr. Xiang Rogers DO Work Phone: Start: 10-19-[address] Xiang Rogers DO Work Phone: Start: 10-19-2024 Mean corpuscular hemoglobin concentration determination Dr. Xiang Rogers DO Work Phone: Start: 10-19-2024 Nucleated red blood cell count procedure Dr. Xiang Rogers DO Work Phone: Start: 10-19-2024 Plain chest X-ray Dr. Jovana Rogers DO Work Phone: Start: 10-19-2024 Platelet mean volume determination Dr. Xiang Rogers DO Work Phone: Start: 10-19-2024 Dr. Latoya Rogers DO Work Phone: Start: 09-21-[address] Xiang Rogers DO Work Phone: Start: 09-21-2024 Total cholesterol:HD L ratio measurement Dr. Xiang Rogers DO Work Phone: Start: 09-20-[address] Xiang Rogers DO Work Phone: Start: 09-19-2024 Mean corpuscular hemoglobin concentration determination Dr. Xiang Rogers DO Work Phone: Start: 09-19-2024 Platelet mean volume determination Dr. Xiang Rogers DO Work Phone: Start: 09-18-2024 Plain chest X-ray Dr. Jovana Rogers DO Work Phone: Start: 09-18-2024 Blood count smear mc rscp w/mnl difrntl wbc count Dr. Xiang Rogers DO Work Phone: Start: 09-18-[address] Xiang Rogers DO Work Phone: Start: 09-18-2024 Mean corpuscular hemoglobin concentration determination Dr. Xiang Rogers DO Work Phone: Start: 09-18-2024 Nucleated red blood cell count procedure Dr. Xiang Rogers DO Work Phone: Start: 09-18-2024 Platelet mean volume determination Dr. Xiang Rogers DO Work Phone: Start: 07-29-2024 Plain chest X-ray Dr. Jovana [...] Adult depression scr eening assessment Gab Culver POWER MANAGER.[employer] Work Phone: Start: 04-06-2006 History of coronary [...] DTaP,Tdap,Td Vaccine (3 - Td or Tdap) [facility] Start: 10-21-2024 [facility] Start: 10-19-2024 [facility] Start: 09-21-2024 Patient discharge [facility] Start: 09-20-2024 [facility] Start: 09-19-2024 [facility] Start: 09-18-2024 Following clinical pathway protocol [facility] Start: 09-18-2024 Ambulation without limitation [facility] Start: 09-18-2024 Assessment of risk o f venous thromboembolism [facility] Start: 09-18-2024 Care regimes management [facility] Start: 09-18-2024 Insertion of cathete r into peripheral vein [facility] Start: 09-18-2024 Measuring intake and output [facility] Start: 09-18-2024 Notification of physician [facility] Start: 09-18-2024 Oxygen therapy [facility] Start: 09-18-2024 Providing care accor ding to standard [facility] Start: 09-18-2024 Referral to service [facility] Start: 09-18-2024 End: 09-18-2024 [facility] Start: 09-18-2024 Hospital admission, emergency, from emergency room, medical nature [facility] Start: 09-18-2024 Verification routine [facility] Start: 09-18-2024 Admission procedure [facility] Start: 09-18-2024 [facility] Start: 09-18-2024 Inhalation therapy procedure [facility] Start: 07-29-2024 [facility] Start: 07-29-2024 End: 07-29-2024 [facility] Start: 06-20-2024 Patient discharge [facility] Start: 06-19-2024 [facility] Start: 06-19-2024 [facility] Start: 06-18-2024 Assessment of risk o f venous thromboembolism [facility] Start: 06-18-2024 Care regimes management [facility] Start: 06-18-2024 Catheterization of vein [facility] Start: 06-18-2024 Continuous pulse oximetry [facility] Start: 06-18-2024 Elevation of head of bed [facility] Start: 06-18-2024 Insertion of cathete r into peripheral vein [facility] Start: 06-18-2024 Measuring intake and output [facility] Start: 06-18-2024 Notification of physician [facility] Start: 06-18-2024 Oxygen therapy [facility] Start: 06-18-2024 Providing care accor ding to standard [facility] Start: 06-18-2024 Referral to power digger operator [facility] Start: 06-18-2024 Referral to service [facility] Start: 06-18-2024 Tobacco use cessatio n education [facility] Start: 06-18-2024 Vital signs measurements [facility] Start: 06-18-2024 End: 06-18-2024 [facility] Start: 06-18-2024 Following clinical pathway protocol [facility] Start: 06-18-2024 End: 06-18-2024 Admission procedure [facility] Start: 06-18-2024 Dual pressure sponta neous ventilation support [facility] Start: 06-18-2024 Consultation [facility] Start: 06-18-2024 Inhalation therapy procedure [facility] Start: 06-17-2024 End: 06-18-2024 [facility] Start: 06-11-2024 Urine microalbumin profile DTaP,Tdap,Td Vaccine (2 - Td or Tdap) [facility] Start: 05-21-2024 [facility] Start: 05-21-2024 Airborne precautions [facility] Start: 05-09-2024 Echo tthrc r-t 2d w/wom-mode compl spec&colr d TTE W/DOPPLER COMPLETE [facility] Start: 04-20-2024 Patient discharge [facility] Start: 12-06-2023 Covid-19 Vaccine () Covid-19 Vaccine () [facility] Start: 12-06-2023 Influenza vaccination Influenza Vacc ine (#1) [facility] Start: 05-24-2023 Incision & drainage abscess simple/single I&D ABSCESS SIMPLE/SINGLE [facility] Start: 05-24-2023 [facility] Start: 04-25-2023 [facility] Start: 12-05-2022 Influenza vaccination Influenza Vacc ine (#1) [facility] Start: 05-23-2022 Patient referral [facility] Work Phone: Start: 04-21-2022 Patient referral [facility] Work Phone: Start: 04-19-2022 Patient discharge [facility] Start: 04-18-2022 Patient discharge [facility] Start: 04-18-2022 End: 04-18-2022 Provision of activity privileges [facility] Start: 04-18-2022 Scheduling [facility] Start: 04-18-2022 Vascular disease ris k assessment [facility] Start: 04-18-2022 End: 04-18-2022 Notification of physician [facility] Start: 04-18-2022 Patient education [facility] Start: 04-18-2022 Pulse taking [facility] Start: 04-18-2022 End: 04-18-2022 Taking patient vital signs [facility] Start: 04-18-2022 Wound care [facility] Start: 04-18-2022 End: 04-18-2022 [facility] Start: 04-18-2022 Catheterization of vein [facility] Start: 04-18-2022 Medication not administered [facility] Start: 04-18-2022 Notification of physician [facility] Start: 04-18-2022 [facility] Start: 04-18-2022 Following clinical pathway protocol [facility] Start: 04-18-2022 Assessment of risk o f venous thromboembolism [facility] Start: 04-18-2022 Care regimes management [facility] Start: 04-18-2022 Inhalation therapy procedure [facility] Start: 04-18-2022 Insertion of cathete r into peripheral vein [facility] Start: 04-18-2022 Measuring intake and output [facility] Start: 04-18-2022 Oxygen therapy [facility] Start: 04-18-2022 Providing care accor ding to standard [facility] Start: 04-18-2022 Provision of activit y privileges [facility] Start: 04-18-2022 Referral to power digger operator [facility] Start: 04-18-2022 Referral to occupati onal therapist [facility] Start: 04-18-2022 Referral to service [facility] Start: 04-18-2022 Tobacco use cessatio n education [facility] Start: 04-18-2022 [facility] Start: 04-18-2022 Verification routine [facility] Work Phone: Start: 04-18-2022 Admission procedure [facility] Start: 04-18-2022 [facility] Work Phone: Start: 04-06-2022 [facility] Start: 12-05-2021 Influenza vaccination C [facility] Start: 04-06-2021 [facility] Start: 06-06-2020 PROSTATE CANCER SCRE ENING DISCUSSION PROSTATE CANCER SCREENING DISCUSSION [facility] Start: 06-06-2020 Prostate specific an tigen measurement Prostate Cancer Screening Discussion [facility] Start: 2020 Hepatitis B Vaccine (1 of 3 - Risk 3-dose series) Hepatitis B Vaccine (1 of 3 - Risk 3-dose series) [facility] Start: 2020 RSV Vaccine (1 - 1-d ose 60+ series) RSV Vaccine (1 - 1-dose 60+ series) [facility] Start: 2020 RSV Vaccine (1 - Ris k 60-74 years 1-dose series) RSV Vaccine (1 - Risk 60-74 years 1-dose series) [facility] Start: 06-18-2019 ANNUAL PCP TEAM FLOOR HAND MIAN DISEASE VISIT ANNUAL PCP TEAM CHRONIC DISEASE VISIT [facility] Start: 12-23-2017 Adult depression screening assessment DEPRESSION SCREENING [facility] Start: 01-13-2017 3 comp foot exam completed DIABETIC FOOT EXAM [facility] Start: 01-13-2017 Diabetic foot examination Diabetic F oot Exam [facility] Start: 01-13-2017 Hepatitis B surface antibody level LDL CHOLESTEROL [facility] Start: 10-08-2016 PNEUMOCOCCAL (2 - PCV) PNEUMOCOCCAL (2 - PCV) [facility] Start: 10-08-2016 Pneumococcal vaccination [facility] Start: 04-15-2016 Hemoglobin A1c measurement HbA1C [facility] Start: 04-15-2016 Hemoglobin A1c/Hemoglobin.total in Blood HBA1C [facility] Start: 01-22-2015 Influenza vaccination LUNG CANCER [facility] Start: 01-22-2010 Influenza vaccination LUNG CANCER [facility] Start: 01-22-2010 Screening for malign ant neoplasm of lung Lung Cancer Screening [facility] Start: 01-22-2010 SHINGRIX VACCINE (1 of 2) NOVA GRIX VACCINE (1 of 2) [facility] Start: 01-22-2005 COLOGUARD (FIT-DNA) COLOGUARD (FIT-D NA) [facility] Start: 01-22-2005 Colonoscopy COLONOSCOPY [facility] Start: 01-22-2005 COLORECTAL CANCER SCREENING COLORECTAL CANCER SCREENING [facility] Start: 01-22-[address] COLONOGRAPHY [facility] Start: 01-22-2005 FECAL OCCULT BLOOD FECAL OCCULT BLOO D [facility] Start: 01-22-2005 Screening for malign ant neoplasm of colon [facility] Start: 01-22-2005 SIGMOIDOSCOPY SIGMOIDOSCOPY [facility] Start: 01-22-1979 Urine microalbumin profile DTAP,TDAP,TD (1 - Tdap) [facility] Start: 01-22-1978 ANNUAL PCP TEAM FLOOR HAND MIAN DISEASE VISIT ANNUAL PCP TEAM CHRONIC DISEASE VISIT [facility] Start: 01-22-1978 Anxiety Screening Anxiety Screening [facility] Start: 01-22-1978 Depression Screening Depression Scre ening [facility] Start: 01-22-1978 HIV SCREENING HIV SCREENING [facility] Start: 01-22-1978 HIV screening HIV Screening [facility] Start: 01-22-1970 Glaucoma screening Dilated Retinal E xam [facility] Start: 01-22-1970 Hepatitis B screening URINE ALBUMIN:CREATININE RATIO [facility] Start: 01-22-1970 Hepatitis C antibody , confirmatory test DILATED RETINAL EXAM [facility] Start: 01-22-1965 COVID-19 VACCINE (1) COVID-19 VACCIN E (1) [facility] Start: 1960 COVID-19 VACCINE (#1) COVID-19 VACCI NE (#1) [facility] End: 02-05-2023 Ct pelvis w/o contrast material CT PELVIS WO IVCON Radiology Routine Left groin pain 1 Occurrences starting 01/06/2022 until 02/05/2023 [facility] Work Phone: Comment on above: 1 Occurrences starti ng 01/06/2022 until 02/05/2023 Hemoglobin A1c/Hemoglobin.total in Blood [facility] Work Phone: Hemoglobin A1c/Hemoglobin.total in Blood [facility] Lipid 1996 panel - S belinda or Plasma [facility] Patient Education [facility] Work Phone: Patient referral [facility] Work Phone: Troponin T.cardiac [Mass/volume] in Serum or Plasma by High sensitivity method [facility] Carotid arteries [facility] US Heart limited [facility] Immunizations Immunization Date Immunization Notes Care Provider Fa radha 04-25-2023 tetanus toxoid, redu jesse diphtheria toxoid, and acellular pertussis vaccine, adsorbed Dr. Xiang Rogers Work Phone: [facility] 12-23-2016 influenza, injectabl e, quadrivalent, contains preservative Gab Culver POWER MANAGER.[employer] Work Phone: [facility] 12-23-2016 influenza virus vacc ine, unspecified formulation Ct (I-Stat) Work Phone: [facility] 10-09-2015 pneumococcal polysaccharide vaccine, 23 valent Gab Culver POWER MANAGER.[employer] Work Phone: [facility] Work Phone: 06-11-2014 tetanus toxoid, redu jesse diphtheria toxoid, and acellular pertussis vaccine, adsorbed Dr. Xiang Rogers Work Phone: [facility] Payers Date Payer Category Payer Self-pay [id number] 2023 Unknown NEVILLE LOZADA HI X [id number] 2023-Present [phone] [address] [address] [place] [address] O [id number].3. [id number] 2023 Unknown [id number] 2023 Unknown [id number] 2020 Medicaid [employer] [id number] 2020-Present [phone] [address] [place] [address] Medicaid [id number]. [id number] 2020 Medicaid [id number]. 1.13.159.2.7.3. [id number] 2020 Unknown [id number] 2014 Unknown [facility] [id number] Unknown [id number] Unknown [id number] 2.840.1.428933.3.579.2.462 Unknown [id number] 2.840.1.753163.3.579.2.462 Unknown [id number] 2.840.1.377728.3.579.2.462 Unknown [id number] 2.16840.1.319406.3.579.2.462 Unknown [id number] 2.840.1.830657.3.579.2.462 Unknown [id number] 2.16.840.1.989258.3.579.2.462 Unknown [id number] 2.16.840.1.931721.3.579.2.462 Unknown [id number] 2.16.840.1.894013.3.579.2.462 Unknown [id number] 2.16.840.1.365890.3.579.2.462 Unknown [id number] 2.16.840.1.122034.3.579.2.462 Unknown [id number] 2.16.840.1.002518.3.579.2.462 Unknown [id number] 2.16.840.1.338010.3.579.2.462 Unknown [id number] 2.16.840.1.110404.3.579.2.462 Unknown [id number] 2.16.840.1.884812.3.579.2.462 Unknown [id number] 2.16.840.1.386162.3.579.2.462 Unknown [id number] 2.16.840.1.171635.3.579.2.462 Unknown [id number] 2.16.840.1.683230.3.579.2.462 Unknown [id number] 2.16.840.1.828800.3.579.2.462 Unknown [id number] 2.16.840.1.609194.3.579.2.462 Unknown [id number] 2.16.840.1.424566.3.579.2.462 Unknown [id number] 2.16.840.1.728316.3.579.2.462 Unknown [id number] 2.16.840.1.245861.3.579.2.462 Unknown [id number] 2.16.840.1.118105.3.579.2.462 Unknown [id number] 2.16.840.1.991255.3.579.2.462 Unknown [id number] 2.16.840.1.582570.3.579.2.462 Unknown [id number] 2.16.840.1.702931.3.579.2.462 Unknown [id number] 2.16.840.1.055138.3.579.2.462 Unknown [id number] 2.16.840.1.874835.3.579.2.462 Unknown [id number] 2.16.840.1.810189.3.579.2.462 Unknown [id number] 2.16.840.1.482296.3.579.2.462 Unknown [id number] 2.16.840.1.252448.3.579.2.462 Unknown [id number] 2.16.840.1.146870.3.579.2.462 Unknown [id number] 2.16.840.1.990951.3.579.2.462 Unknown [id number] 2.16.840.1.944448.3.579.2.462 Unknown [id number] 2.16.840.1.457759.3.579.2.462 Unknown [id number] 2.16.840.1.897382.3.579.2.462 Unknown [id number] 2.16.840.1.122422.3.579.2.462 Unknown [id number] 2.16.840.1.513101.3.579.2.462 Unknown [id number] 2.16.840.1.210737.3.579.2.462 Unknown [id number] 2.16.840.1.297332.3.579.2.462 Unknown [id number] 2.16.840.1.308313.3.579.2.462 Unknown [id number] 2.16.840.1.834232.3.579.2.462 Unknown [id number] 2.16.840.1.673424.3.579.2.462 Unknown [id number] 2.16.840.1.214756.3.579.2.462 Unknown [id number] 2.16.840.1.786485.3.579.2.462 Unknown [id number] 2.16.840.1.040163.3.579.2.462 Unknown [id number] 2.16.840.1.873121.3.579.2.462 Unknown [id number] 2.16.840.1.395561.3.579.2.462 Unknown [id number] 2.16.840.1.943655.3.579.2.462 Unknown [id number] 2.16.840.1.207400.3.579.2.462 Social History Date Type Detail Facility Start: 01-06-2022 End: 12-31-2023 Tobacco smoking status NHIS Smokes tobacco daily [facility] Work Phone: History of tobacco use Cigarette Smoker C [facility] Start: 07-18-2021 End: 12-31-2023 Alcohol intake Current non-drinker of alcohol (finding) [facility] Start: 1960 Sex Assigned At Not on file [facility] Start: 07-08-2021 End: 02-04-2022 Exposure to SARS-CoV-2 (event) Not sure [facility] Start: 07-18-2021 End: 06-02-2023 Tobacco smoking status COIS Unknown if ever smoked [facility] Start: 04-12-2019 None [facility] Start: 04-12-2019 Spouse/ Signif icant Other [facility] Start: 08-11-2020 Cigarettes [facility] Start: 1960 Sex Assigned At Male W [facility] Start: 01-06-2022 End: 05-02-2022 Cigarettes smoked current (pack per day) - Reported 2 [facility] Start: 01-06-2022 End: 12-31-2023 Tobacco use and exposure Smokeless tobacco non-user [facility] Start: 01-06-2022 Tobacco Comment started at age 14 [facility] Start: 01-28-2022 End: 05-02-2022 Tobacco use panel [facility] National Score (1-10 0), lower number is lower risk Not on file [facility] Start: 06-17-2024 End: 10-21-2024 Tobacco smoking status NHIS Current Heavy tobacco smoker [facility] Start: 06-23-2024 Sex Male (finding) [facility] Medical Equipment Procedure Code Equipment Code Equipment Origin al Text Equipment Identifier Dates [id number], [id number], [id number] Start: 01-21-2016 Comment on above: Test blood sugar(s) 2 daily. Dx: E11.65. Insulin: Yes Use one needle per d ose. 1 per day. Test blood sugar(s) 2 daily. Dx: E11.65 Insulin: Yes Blood Sugar Diagnostic (Freestyle Test) strip Start: 04-02-2021 Lancets (Freesty le Lancets) 28 gauge misc Start: 04-02-2021 Pen Needle, Diabetic (1st Tier Unifine Pentips Plus) 31 gauge x 3/16 needle Start: 04-02-2021 Blood Sugar Diagnostic (Freestyle Test) strip Start: 06-10-2019 End: 04-02-2021 Lancets (Freesty le Lancets) 28 gauge misc Start: 06-10-2019 End: 04-02-2021 Pen Needle, Diabetic (1st Tier Unifine Pentips Plus) 31 gauge x 3/16 needle Start: 06-01-2019 End: 08-06-2020 Pen Needle, Diabetic (1st Tier Unifine Pentips Plus) 31 gauge x 3/16 needle Start: 08-06-2020 End: 04-02-2021 Blood Sugar Diagnostic (Freestyle Test) strip Start: 04-02-2021 Lancets (Freesty le Lancets) 28 gauge misc Start: 04-02-2021 Pen Needle, Diabetic (1st Tier Unifine Pentips Plus) 31 gauge x 3/16 needle Start: 04-02-2021 Blood Sugar Diagnostic (Freestyle Test) strip Start: 06-10-2019 End: 04-02-2021 Lancets (Freesty le Lancets) 28 gauge misc Start: 06-10-2019 End: 04-02-2021 Pen Needle, Diabetic (1st Tier Unifine Pentips Plus) 31 gauge x 3/16 needle Start: 06-01-2019 End: 08-06-2020 Pen Needle, Diabetic (1st Tier Unifine Pentips Plus) 31 gauge x 3/16 needle Start: 08-06-2020 End: 04-02-2021 Blood Sugar Diagnostic (Freestyle Test) strip Start: 04-02-2021 Lancets (Freesty le Lancets) 28 gauge misc Start: 04-02-2021 Pen Needle, Diabetic (1st Tier Unifine Pentips Plus) 31 gauge x 3/16 needle Start: 04-02-2021 Blood Sugar Diagnostic (Freestyle Test) strip Start: 06-10-2019 End: 04-02-2021 Lancets (Freesty le Lancets) 28 gauge misc Start: 06-10-2019 End: 04-02-2021 Pen Needle, Diabetic (1st Tier Unifine Pentips Plus) 31 gauge x 3/16 needle Start: 06-01-2019 End: 08-06-2020 Pen Needle, Diabetic (1st Tier Unifine Pentips Plus) 31 gauge x 3/16 needle Start: 08-06-2020 End: 04-02-2021 Blood Sugar Diagnostic (Freestyle Test) strip Start: 04-02-2021 Lancets (Freesty le Lancets) 28 gauge misc Start: 04-02-2021 Pen Needle, Diabetic (1st Tier Unifine Pentips Plus) 31 gauge x 3/16 needle Start: 04-02-2021 Blood Sugar Diagnostic (Freestyle Test) strip Start: 06-10-2019 End: 04-02-2021 Lancets (Freesty le Lancets) 28 gauge misc Start: 06-10-2019 End: 04-02-2021 Pen Needle, Diabetic (1st Tier Unifine Pentips Plus) 31 gauge x 3/16 needle Start: 06-01-2019 End: 08-06-2020 Pen Needle, Diabetic (1st Tier Unifine Pentips Plus) 31 gauge x 3/16 needle Start: 08-06-2020 End: 04-02-2021 Blood Sugar Diagnostic (Freestyle Test) strip Start: 04-02-2021 Lancets (Freesty le Lancets) 28 gauge misc Start: 04-02-2021 Pen Needle, Diabetic (1st Tier Unifine Pentips Plus) 31 gauge x 3/16 needle Start: 04-02-2021 Blood Sugar Diagnostic (Freestyle Test) strip Start: 06-10-2019 End: 04-02-2021 Lancets (Freesty le Lancets) 28 gauge misc Start: 06-10-2019 End: 04-02-2021 Pen Needle, Diabetic (1st Tier Unifine Pentips Plus) 31 gauge x 3/16 needle Start: 06-01-2019 End: 08-06-2020 Pen Needle, Diabetic (1st Tier Unifine Pentips Plus) 31 gauge x 3/16 needle Start: 08-06-2020 End: 04-02-2021 Blood Sugar Diagnostic (Freestyle Test) strip Start: 04-02-2021 Lancets (Freesty le Lancets) 28 gauge misc Start: 04-02-2021 Pen Needle, Diabetic (1st Tier Unifine Pentips Plus) 31 gauge x 3/16 needle Start: 04-02-2021 Blood Sugar Diagnostic (Freestyle Test) strip Start: 06-10-2019 End: 04-02-2021 Lancets (Freesty le Lancets) 28 gauge misc Start: 06-10-2019 End: 04-02-2021 Pen Needle, Diabetic (1st Tier Unifine Pentips Plus) 31 gauge x 3/16 needle Start: 06-01-2019 End: 08-06-2020 Pen Needle, Diabetic (1st Tier Unifine Pentips Plus) 31 gauge x 3/16 needle Start: 08-06-2020 End: 04-02-2021 Blood Sugar Diagnostic (Freestyle Test) strip Start: 04-02-2021 Lancets (Freesty le Lancets) 28 gauge misc Start: 04-02-2021 Pen Needle, Diabetic (1st Tier Unifine Pentips Plus) 31 gauge x 3/16 needle Start: 04-02-2021 Blood Sugar Diagnostic (Freestyle Test) strip Start: 06-10-2019 End: 04-02-2021 Lancets (Freesty le Lancets) 28 gauge misc Start: 06-10-2019 End: 04-02-2021 Pen Needle, Diabetic (1st Tier Unifine Pentips Plus) 31 gauge x 3/16 needle Start: 06-01-2019 End: 08-06-2020 Pen Needle, Diabetic (1st Tier Unifine Pentips Plus) 31 gauge x 3/16 needle Start: 08-06-2020 End: 04-02-2021 Blood Sugar Diagnostic (Freestyle Test) strip Start: 04-02-2021 Lancets (Freesty le Lancets) 28 gauge misc Start: 04-02-2021 Pen Needle, Diabetic (1st Tier Unifine Pentips Plus) 31 gauge x 3/16 needle Start: 04-02-2021 Blood Sugar Diagnostic (Freestyle Test) strip Start: 06-10-2019 End: 04-02-2021 Lancets (Freesty le Lancets) 28 gauge misc Start: 06-10-2019 End: 04-02-2021 Pen Needle, Diabetic (1st Tier Unifine Pentips Plus) 31 gauge x 3/16 needle Start: 06-01-2019 End: 08-06-2020 Pen Needle, Diabetic (1st Tier Unifine Pentips Plus) 31 gauge x 3/16 needle Start: 08-06-2020 End: 04-02-2021 Blood Sugar Diagnostic (Freestyle Test) strip Start: 04-02-2021 Lancets (Freesty le Lancets) 28 gauge misc Start: 04-02-2021 Pen Needle, Diabetic (1st Tier Unifine Pentips Plus) 31 gauge x 3/16 needle Start: 04-02-2021 Blood Sugar Diagnostic (Freestyle Test) strip Start: 06-10-2019 End: 04-02-2021 Lancets (Freesty le Lancets) 28 gauge misc Start: 06-10-2019 End: 04-02-2021 Pen Needle, Diabetic (1st Tier Unifine Pentips Plus) 31 gauge x 3/16 needle Start: 06-01-2019 End: 08-06-2020 Pen Needle, Diabetic (1st Tier Unifine Pentips Plus) 31 gauge x 3/16 needle Start: 08-06-2020 End: 04-02-2021 Blood Sugar Diagnostic (Freestyle Test) strip Start: 04-02-2021 Lancets (Freesty le Lancets) 28 gauge misc Start: 04-02-2021 Pen Needle, Diabetic (1st Tier Unifine Pentips Plus) 31 gauge x 3/16 needle Start: 04-02-2021 Blood Sugar Diagnostic (Freestyle Test) strip Start: 06-10-2019 End: 04-02-2021 Lancets (Freesty le Lancets) 28 gauge misc Start: 06-10-2019 End: 04-02-2021 Pen Needle, Diabetic (1st Tier Unifine Pentips Plus) 31 gauge x 3/16 needle Start: 06-01-2019 End: 08-06-2020 Pen Needle, Diabetic (1st Tier Unifine Pentips Plus) 31 gauge x 3/16 needle Start: 08-06-2020 End: 04-02-2021 Blood Sugar Diagnostic (Freestyle Test) strip Start: 04-02-2021 Lancets (Freesty le Lancets) 28 gauge misc Start: 04-02-2021 Pen Needle, Diabetic (1st Tier Unifine Pentips Plus) 31 gauge x 3/16 needle Start: 04-02-2021 Blood Sugar Diagnostic (Freestyle Test) strip Start: 06-10-2019 End: 04-02-2021 Lancets (Freesty le Lancets) 28 gauge misc Start: 06-10-2019 End: 04-02-2021 Pen Needle, Diabetic (1st Tier Unifine Pentips Plus) 31 gauge x 3/16 needle Start: 06-01-2019 End: 08-06-2020 Pen Needle, Diabetic (1st Tier Unifine Pentips Plus) 31 gauge x 3/16 needle Start: 08-06-2020 End: 04-02-2021 Blood Sugar Diagnostic (Freestyle Test) strip Start: 04-02-2021 Lancets (Freesty le Lancets) 28 gauge misc Start: 04-02-2021 Pen Needle, Diabetic (1st Tier Unifine Pentips Plus) 31 gauge x 3/16 needle Start: 04-02-2021 Blood Sugar Diagnostic (Freestyle Test) strip Start: 06-10-2019 End: 04-02-2021 Lancets (Freesty le Lancets) 28 gauge misc Start: 06-10-2019 End: 04-02-2021 Pen Needle, Diabetic (1st Tier Unifine Pentips Plus) 31 gauge x 3/16 needle Start: 06-01-2019 End: 08-06-2020 Pen Needle, Diabetic (1st Tier Unifine Pentips Plus) 31 gauge x 3/16 needle Start: 08-06-2020 End: 04-02-2021 Blood Sugar Diagnostic (Freestyle Test) strip Start: 04-02-2021 Lancets (Freesty le Lancets) 28 gauge misc Start: 04-02-2021 Pen Needle, Diabetic (1st Tier Unifine Pentips Plus) 31 gauge x 3/16 needle Start: 04-02-2021 Pen Needle, Diabetic (Comfort Ez Pen Frederica) 31 gauge x 5/16 needle Start: 10-28-2023 Blood Sugar Diagnostic (Freestyle Test) strip Start: 06-10-2019 End: 04-02-2021 Lancets (Freesty le Lancets) 28 gauge misc Start: 06-10-2019 End: 04-02-2021 Pen Needle, Diabetic (1st Tier Unifine Pentips Plus) 31 gauge x 3/16 needle Start: 06-01-2019 End: 08-06-2020 Pen Needle, Diabetic (1st Tier Unifine Pentips Plus) 31 gauge x 3/16 needle Start: 08-06-2020 End: 04-02-2021 Goals Date Patient Goal Desired Activity /State Functional Status Date Assessment Result Facility 09-21-2024 Functional status Ambulates;Up a d andree;Bathroom Privilege [facility] Work Phone: 09-19-2024 Functional status None [facility] Work Phone: 06-20-2024 Functional status Chair [facility] Work Phone: 04-19-2022 Functional status Ambulates;Up ad andree [facility] Work Phone: Mental Status Date Assessment Result Facility 10-19-2024 Cognitive function Voice/Name [facility] Work Phone: 09-21-2024 Cognitive function Voice/Name [facility] Work Phone: 09-18-2024 Cognitive function Voice/Name [facility] Work Phone: 07-29-2024 Cognitive function Voice/Name [facility] Work Phone: 06-20-2024 Cognitive function Voice/Name [facility] Work Phone: 04-19-2022 Cognitive function Voice/Name [facility] Work Phone: 04-18-2022 Cognitive function Voice/Name [facility] Work Phone: 07-18-2021 Cognitive function Level Of Cons ciousness Awake;Alert;Appropriate [facility] Work Phone: Clinical Notes 06-11-2018 to 10-19-2024 Note Date & Type Note Facility 10-19-2024 Radiology Diagnostic study note [facility] 10-19-2024 Discharge summary Note Date/Time October 19, 2024 11:21pm [facility] Medical Records Department [address] [place] [address] Emergency Department Summary 10/19/24 MR#: [id number] Acct: [id number] Name: ROBERTOJAYLEN Hannah Sr. Rep #:[id number] 0724 : 1960 64 From: Valentín Saravia PCP: Dr. Xiang Rogers, DO Status:RE G ER Location: ED HPI History of Present Illness Chief Complaint: Chest Pain [facility] Medical History GERD (gastroesophageal reflux disease) Anxiety High blood cholesterol Diabetes mellitus Emphysema, unspecified COPD (chronic obstructive pulmonary disease) Decreased left ventricular function Encounter for screening for malignant neoplasm of lung in current smoker with 30pack year history or greater Stenosis of right carotid artery Insulin dependent diabetes mellitus History of non-ST elevation myocardial infarction (NSTEMI) (06/11/18) Emphysema lung Asthma Type 2 diabetes mellitus Arthritis Pancreatitis GERD (gastroesophageal reflux disease) Nicotine dependence Atherosclerosis of coronary artery of [place] heart without angina pectoris Hyperlipidemia Essential (primary) hypertension Home Medications ?Medication ?Instructions ?Recorded ?Last Taken ?Type blood sugar diagnostic (FreeStyle #50 ea 04/02/21 Unkn own Rx Test strips) blood-glucose meter (FreeStyle #1 ea 04/02/21 Unknown Rx System Kit) lancets 28 gauge (FreeStyle #50 ea 04/02/21 Unknown Rx Lancets) pen needle, diabetic 31 gauge x #100 ea 04/02/21 Unkno wn Rx 06/19 (1st Tier Unifine Pentips Plus) Handicap placard #1 ea 07/22/23 Unknown Rx pen needle, diabetic 31 gauge x #100 ea 10/28/23 Unkno wn Rx 08/19 (Comfort EZ Pen Frederica) evolocumab 140 mg/mL subcutaneous 140 mg subcut Q2W ch olesterol #6 mL 05/09/24 09/12/24 Rx pen injector (Repatha SureClick) albuterol sulfate 90 mcg/actuation 2 puff inhalation Q 4H PRN 06/17/24 09/17/24 History aerosol inhaler shortness of breath or wheez ing insulin glargine 100 unit/mL (3 20 unit subcut DAILY D iabetes 06/17/24 09/18/24 History mL) subcutaneous pen (Lantus Solostar U-100 Insulin) aspirin 81 mg chewable tablet 81 mg PO BREAKFAST preve ntative #0 06/20/24 09/18/24 Rx tabs omeprazole 20 mg capsule,delayed 20 mg PO DAILY reflux #90 caps 09/13/24 09/18/24 Rx release fluticasone propionate 50 2 spray intranasal DAILY PRN nasal 09/18/24 Unknown History mcg/actuation nasal congestion spray,suspension (Flonase Allergy Relief) insulin lispro protamine-lispro 20 - 35 unit subcut BI D diabetes 09/18/24 09/17/24 History 100 unit/mL (50-50) subcutaneous pen (Humalog Mix 50-50 KwikPen) clopidogrel 75 mg tablet 75 mg PO DAILY #90 tabs 09/05 07/29 Unknown Rx furosemide 40 mg tablet 40 mg PO DAILY #90 tabs 09/05 07/29 Unknown Rx nitroglycerin 0.4 mg sublingual 0.4 mg sublingual Q5M PRN 09/27/24 Unknown Rx tablet Cardiac/Chest Pain #25 tabs furosemide 40 mg tablet (Lasix) 40 mg PO DAILY 30 days #30 tabs 10/19/24 Unknown Rx Allergy/AdvReac Type Severity Reaction Status Date / Time amoxicillin Allergy Angioedema Verified 10/19/24 18:19 lindane Allergy Rash Verified 10/19/24 18:19 Family History Father Asthma Alcoholism Arthritis Heart disease Hypertension High cholesterol CVA (cerebral vascular accident) Lung cancer Grandfather Myocardial infarction Surgical History S/P CABG x 4 History of hernia repair History of carotid endarterectomy (01/06/14) H/O coronary artery bypass surgery (2006) History of left heart catheterization (06/11/18) Social History Smoking Status: Heavy Smoker (>10/day) Tobacco: How many years used: 45 Electronic Cigarette Use: not used second hand exposure: Yes quit status: considering quitting alcohol intake: never substance use type: does not use caffeine: Yes Type: coffee Number of servings: 5 what type of physical activity do you participate in: none EXAM Physical Exam Const Vital Signs: 10/19/24 18:20 10/19/24 18:36 10/19/24 18:41 Temperature 97.8 F Temperature Source Temporal Pulse Rate 103 H Respiratory Rate 22 H Respiratory Effort Normal Blood Pressure 119/78 Blood Pressure Mean 91 Pulse Ox 97 93 Oxygen Delivery Method Room Air Room Air 10/19/24 19:19 10/19/24 20:00 10/19/24 21:00 Temperature Temperature Source Pulse Rate 93 93 Respiratory Rate 14 15 Respiratory Effort Blood Pressure 105/71 115/72 115/87 H Blood Pressure Mean 82 85 97 Pulse Ox 95 93 96 Oxygen Delivery Method Room Air 10/19/24 22:00 10/19/24 23:00 Temperature Temperature Source Pulse Rate 99 100 Respiratory Rate 17 18 Respiratory Effort Blood Pressure 120/80 115/81 H Blood Pressure Mean 92 92 Pulse Ox 97 98 Oxygen Delivery Method MDM MDM MDM Narrative Medical decision making narrative: HISTORY OF PRESENT ILLNESS: Chief complaint: Chest pain 64-year-old male history of CAD status post CABG CHF, right valve stenosis, type2 diabetes, COPD, PAD, hyperlipidemia, hypertension, type 2 diabetes presents with chest pain and increasing shortness of breath for 3 days. Also notes swelling in bilateral lower extremities. Notes he has not taken Lasix for the past week secondary to been able to fill the prescription because of pharmacy related issues. States he has a prescription, has insurance but his pharmacy states that it will not be ready for 24 hours. When he calls the next day they state the same thing notes cough is productive yellow-green sputum. Thinks it could be pneumonia. Also notes swelling in the legs. No chest pain is located along his right rib margin. It is worse with cough. It is not worse with exertion. He notes that shortness of breath is worse with exertion. He denies chills but does note a fever of 101 yesterday. The patient denies vomiting or diarrhea. He denies family or personal history of connective tissue diseases, aneurysms. Denies focal weakness or loss of sensation. He denies any PE risk factors. He notes he still smoking REVIEW OF SYSTEMS: Pertinent positives: Chest pain, shortness of breath, leg swelling, cough, fever Pertinent negatives: As per HPI PHYSICAL EXAM: Nursing triage notes reviewed, Vital signs reviewed Constitutional: please see [facility] HENT: MMM Eyes: Pupils equal round and reactive to light, Extraocular muscles intact Neck: No stridor, no JVD, full neck ROM Lungs: Clear to auscultation, No wheezing or rales. No increased work of breathing, no conversational dyspnea, no accessory muscle use, no nasal flaring. No respiratory distress noted Heart: Regular rate and rhythm, No murmurs, No rubs and No gallops, 2+ distal pulses (radial, femoral, posterior tibial) in all extremities Abdomen: Soft, there is no tenderness, rigidity, rebound or guarding, no obviousperitoneal signs, no palpable pulsatile abdominal masses, no auscultated abdominal bruit : No CVAT Extremities: No edema Neuro: No new focal neurological deficits, cranial nerves II through XII intact,5/5 strength in all present extremities. Intact sensation to light touch in all present extremities, 2+ reflexes bilateral patella tendons. Skin: No rash or lesions noted MEDICAL DECISION MAKING: Chief Complaint: please see HPI External records reviewed: Reviewed prior imaging studies: Reviewed echocardiogram from September 2024 which showed ejection fraction 35% with severe apex, mid anterior hypokinesis Factors affecting care: As per HPI Social determinants of health: smoker History obtained from others: none Consults: none [facility] Narrative: The patient was initially tachycardic with a heart rate of 103, tachypneic with initial respiratory of 22 saturating 97% on room air. Exam with 2+ pitting edema bilateral lower extremities but there is no calf tenderness. No stigmata of VTE on initial exam. I considered the following differential diagnosis: Medication noncompliance, ACS, anemia, electrolyte disturbance, pneumonia, COPD exacerbation, CHF exacerbation, PE, aortic dissection amongst others I obtained a broad lab and imaging evaluation to further determine if the patient was suffering from a life-threatening etiology. ALL IMAGES (IF OBTAINED) HAVE BEEN PERSONALLY REVIEWED AND INTERPRETED BY MYSELF. EKG with normal sinus rhythm rate of 96, normal axis, ST depressions noted laterally which were present on prior EKG, patient also has T wave inversions laterally which were present on prior EKG from 09/18/2024 High-sensitivity troponin is negative, no evidence of myocardial ischemiax3 Chest x-ray was read reviewed person myself showed no evidence of obvious pneumonia. Showed cardiomegaly and sternotomy wires, no pneumothorax. Radiologist noted mild cardiomegaly. BNP elevated consistent with heart failure and medication noncompliance CBC without leukocytosis, severe anemia, no thrombocytopenia. BMP with hemolyzed hyperkalemia likely within normal limits, no BENOIT. Noted hyperglycemia but no sign of anion gap or metabolic acidosis The synthesis of the patient's history, physical exam, labs images suggest medical compliance causing volume overload. I was able to write the patient Lasix here to provide meds to beds to give the patient medication. While I considered admitting the patient given multiple medical comorbidities, history of CHF, COPD and reported chest pain shortness of breath. The patient ruled out by [facility] high-sensitivity troponin protocol for ACS. It is likely that if the patient begins taking Lasix as prescribed his symptoms will improve markedly. In addition to this patient was able to ambulate here in the emergency department significant hypoxia despite showing signs of volume overload elevated BNP. He is now requiring patient admission atthis time I think it is reasonable to have a trial of Lasix at home for the next7 days with prompt PCP follow-up. Strict return precautions were discussed The patient and/or family, caregivers express understanding. The patient and/orfamily, caregivers agrees with the plan. Shared decision making: I will have a discussion with the patient and or visitors regarding risk/benefits of further testing or admission. They will be made aware of of the risk/benefits inherent in this decision they will be given the opportunity to voice understanding. Total critical care time today provided was at least 0 minutes. This excludes separately billable procedures. Critical care time (if documented) is secondary to the patient having high probability of clinically significant/life threatening deterioration in the patient's condition which required my urgent intervention. Impression: 1. CHF exacerbation 2. History of type 2 diabetes 3. Medication noncompliance Dispo: Discharge home This note was generated with [employer] dictation software. It may contain incorrectwords, spelling, and punctuation that were not noted in review of the chart prior to signing. Lab Data Labs: Laboratory Results - last 24 hr 10/19/24 10/19/24 10/19/24 18:41 20:30 22:35 WBC 6.7 RBC 4.39 L Hgb 13.7 Hct 40.7 MCV 92.7 MCH 31.2 MCHC 33.7 RDW Std Deviation 43.1 RDW Coeff of Maycol 12.6 Plt Count 241 MPV 10.0 Immature Gran % (Auto) 0.100 Neut % (Auto) 65.7 Lymph % (Auto) 24.7 [place] % (Auto) 6.1 Eos % (Auto) 3.1 Baso % (Auto) 0.3 Absolute Neuts (auto) 4.4 Absolute Lymphs (auto) 1.65 Nucleated RBC % 0 Sodium 133 Potassium 5.5 H Chloride 98 Carbon Dioxide 22.6 Anion Gap 13 BUN 19 Creatinine 1.19 Estim Creat Clear Calc 66.79 Est GFR (MDRD) Non-Af 68 BUN/Creatinine Ratio 16.0 Glucose 343 H Calcium 9.2 Troponin T High Sens 25 H D Troponin T Hi Sens 2 Hr 27 H Troponin T Hi Sens 4Hr 26 H NT pro BNP II 4100 H Radiography Diagnostic Testing: Clinical Impression(s) from Imaging Studies Chest X-Ray 10/19/24 18:41 IMPRESSION: Mild cardiomegaly with findings of prior CABG. No evidence of acute cardiopulmonary disease. Reading Location: [id number] Discharge Plan Triage Chief Complaint: Chest Pain ED Provider: Valentín Miller Dx/Rx/DC Orders Clinical Impression: CHF exacerbation Instructions: Heart Failure Dc Prescriptions: New furosemide [Lasix] 40 mg tablet 40 mg PO DAILY 30 Days Qty: 30 0RF No Action (DME) Handicap placard See Rx Instructions .Route .MEDSUPPLY Qty: 1 0RF Rx Instructions: Due to COPD, unable to walk 50 yards without assistance, duration 5 years. (DME) pen needle, diabetic [Comfort EZ Pen Frederica] 31 gauge x 5/16 needle See Rx Instructions .Route Qty: 100 3RF Rx Instructions: As directed clopidogrel 75 mg tablet 75 mg PO DAILY Qty: 90 3RF furosemide 40 mg tablet 40 mg PO DAILY Qty: 90 3RF nitroglycerin 0.4 mg tablet, sublingual 0.4 mg Sublingual Q5M PRN (Reason: Cardiac/Chest Pain) Qty: 25 1RF fluticasone propionate [Flonase Allergy Relief] 50 mcg/actuation spray,suspension 2 spray intranasal DAILY PRN (Reason: nasal congestion) Rx Instructions: administer into each nostril Humalog Mix 50-50 KwikPen 100 unit/mL (50-50) insulin pen 20 - 35 unit SC BID Patient Comments: pt based on sliding scale Rx Instructions: 9 pm: eat a meal, take 20 units insulin 1 am: eat a meal during work break 8 am: eat a meal take 20 units insulin albuterol sulfate 90 mcg/actuation HFA aerosol inhaler 2 puff inhalation Q4H PRN (Reason: shortness of breath or wheezing) insulin glargine [Lantus Solostar U-100 Insulin] 100 unit/mL (3 mL) insulin pen 20 unit subcut DAILY aspirin 81 mg Tablet,Chewable 81 mg PO BREAKFAST Qty: 0 0RF (DME) FreeStyle Test Strip See Rx Instructions .ROUTE .MEDSUPPLY Qty: 50 11RF Rx Instructions: check blood glucose daily (DME) blood-glucose meter [FreeStyle System Kit] Kit See Rx Instructions .ROUTE .MEDSUPPLY Qty: 1 0RF Rx Instructions: check blood glucose daily for type 2 DM (DME) lancets [FreeStyle Lancets] 28 gauge misc See Rx Instructions .ROUTE .MEDSUPPLY Qty: 50 11RF Rx Instructions: Check blood glucose daily for type 2 DM (DME) pen needle, diabetic [1st Tier Unifine Pentips Plus] 31 gauge x 3/16 needle See Rx Instructions .ROUTE .MEDSUPPLY Qty: 100 1RF Rx Instructions: use with lantus nightly Repatha SureClick 140 mg/mL pen injector 140 mg subcut Q2W Qty: 6 3RF omeprazole 20 mg capsule,delayed release(DR/EC) 20 mg PO DAILY Qty: 90 1RF Primary Care Provider: Xiang Rogers Referrals: Xiang Rogers DO [Primary Care Provider] - Jose Garcia MD [Med Staff - Active Staff] - Activity Restrictions/Additional Instructions: Thank you for trusting us with your care today! Please take prescribed Lasix. Please return to the emergency department if your symptoms change or worsen. Specifically develop worsening chest pain, leg swelling or shortness of breath. Please follow with your primary care physician for further outpatient evaluationand management. Print Language: Bruneian Disposition Disposition: Home, Self Care What to do if you have Problems For any increased pain, shortness of breath, bleeding, nausea or vomiting, chestpain, or any unexpected problems, contact your Primary Care Provider. Call [facility] ([phone]) or report to the closest Emergency Room. Call 911 if necessary. 10/19/24 2321 <Electronically signed by Valentín Miller DO> Cosigner Signature (if applicable): CC: Dr. Xiang Rogers DO ~ Signed [facility] Work Phone: 1(273) 647-787006-18-2025 Discharge summary Author Donna Wolff [facility] Note Date/Time September 21, 2024 4:22 pm [facility] Medical Records Department [address] [place] [address] Instructions for Home/Discharge Instructions 09/21/24 1537 MR#: [id number] Acct: [id number] Name: JAYLEN MEJIA Sr. Rep #:[id number] : 1960 64 From: Donna Wolff MD PCP: Dr. Xiang Rogers DO Status:AD M IN Discharge Instructions DC O2, CPAP, BIPAP needs Home O2 Discharge instructions: No Dressing / Incision Discharge Activity: - (Increase activity as tolerated) Follow Up Care Test Results: Test results from this visit will be discussed in further detail at your follow- up appointment, if applicable. Discharge Plan Admission Admit Date/Time: 09/18/24 13:39 Primary Reason for Your Visit: Shorness of breath and chest tightness Attending Provider: Donna Wolff Primary Care Provider: Xiang Rogers Consulting Providers: Clinton Soares; Seth Carrington Instructions Patient Instructions: Coping with Heart Failure, Cardiomyopathy Dc Additional Instructions / Restrictions: DISCHARGE INSTRUCTIONS PLEASE READ *Please take this with you to your next doctors appointment* - There was some confusion surrounding which medications you were taking and were supposed to be taking prior to admission, given your decrease in ejection fraction (how well the heart pumps) you likely have different medication requirements now so you have had multiple medication changes: -You will be taking Lasix (furosemide) 40 mg once daily and Plavix ( clopidogrel) 75 mg daily - you will continue your insulin, home inhaler, Repatha injection, omeprazole, Zetia (ezetimibe) , Farxiga (depagliflozin), alfuzosin, and aspirin 81mg - would recommend discussing your omeprazole and clopidogrel with your primary prescribing physician as they may want to alter one of these medications to avoid medication interactions -You will discontinue all other medications at this time. Please remove them from the area you prepare your medications to decrease confusion -Would recommend lab work (BMP) to check your kidney function and potassium in 2to 3 days through your primary care physician's office given you will be on Lasix. Please call their office upon discharge to obtain order for lab work. - Please follow-up with the cardiology office upon discharge, would recommend following up in the next 1 to 2 weeks, please call their office to schedule an appointment if there is not a close follow up already scheduled - strongly advised smoking cessation -Weigh yourself every day. A sudden weight gain can mean you are retaining fluid. Weigh yourself at the same time of day and in the same kind of clothes. Ideally, weigh yourself first thing in the morning after you empty your bladder,but before you eat breakfast. -Please call your physician if your weight goes up by more than 2 pounds in 1 day or 5 pounds in 1 week. This can be a sign that you are retaining more fluid than you should be. Clues to weight gain include checking your ankles for swelling, or noticing you are short of breath when you lie down -Please limit your sodium intake to less than 3 g/day. Here are tips: Limit canned, dried, packaged, and fast foods. Don't add salt to your food at the table. Season foods with herbs instead of salt when you cook. When you eat out, ask that the visiting professor not add any salt to your dish. Don't eat fried or greasy foods. Be careful of bottled beverages. They can contain a lot of salt -Call 911 right away if you have: -Severe shortness of breath, such that you can't catch your breath even while resting -Severe chest pain that does not resolve with rest or nitroglycerin -[place], foamy mucus with cough and shortness of breath -An ongoing rapid or irregular heartbeat -Passing out or fainting -Stroke symptoms such as sudden numbness or weakness on one side of your face, arm, or leg or sudden confusion, trouble speaking or vision changes -Please call your primary care provider's office upon discharge to schedule a hospital follow up within 1 week. -For any concerning signs or symptoms please call 911 or proceed to the nearest emergency department Discharge Orders/Prescriptions Prescriptions: New furosemide 40 mg Tablet 40 mg PO DAILY 30 Days Qty: 30 0RF clopidogrel 75 mg Tablet 75 mg PO DAILY 30 Days Qty: 30 0RF Continued nitroglycerin 0.4 mg tablet, sublingual 0.4 mg Sublingual Q5M PRN (Reason: Cardiac/Chest Pain) Qty: 20 1RF alfuzosin 10 mg tablet extended release 24 hr 10 mg PO DAILY Rx Instructions: administer after the same meal each day (DME) Handicap placard See Rx Instructions .Route .MEDSUPPLY Qty: 1 0RF Rx Instructions: Due to COPD, unable to walk 50 yards without assistance, duration 5 years. (DME) pen needle, diabetic [Comfort EZ Pen Frederica] 31 gauge x 5/16 needle See Rx Instructions .Route Qty: 100 3RF Rx Instructions: As directed fluticasone propionate [Flonase Allergy Relief] 50 mcg/actuation spray,suspension 2 spray intranasal DAILY PRN (Reason: nasal congestion) Rx Instructions: administer into each nostril Humalog Mix 50-50 KwikPen 100 unit/mL (50-50) insulin pen 20 - 35 unit SC BID Patient Comments: pt based on sliding scale Rx Instructions: 9 pm: eat a meal, take 20 units insulin 1 am: eat a meal during work break 8 am: eat a meal take 20 units insulin albuterol sulfate 90 mcg/actuation HFA aerosol inhaler 2 puff inhalation Q4H PRN (Reason: shortness of breath or wheezing) ezetimibe 10 mg tablet 10 mg PO DAILY insulin glargine [Lantus Solostar U-100 Insulin] 100 unit/mL (3 mL) insulin pen 20 unit subcut DAILY Dulera 100-5 mcg/actuation HFA aerosol inhaler 2 puff inhalation BID aspirin 81 mg Tablet,Chewable 81 mg PO BREAKFAST Qty: 0 0RF (DME) FreeStyle Test Strip See Rx Instructions .ROUTE .MEDSUPPLY Qty: 50 11RF Rx Instructions: check blood glucose daily (DME) blood-glucose meter [FreeStyle System Kit] Kit See Rx Instructions .ROUTE .MEDSUPPLY Qty: 1 0RF Rx Instructions: check blood glucose daily for type 2 DM (DME) lancets [FreeStyle Lancets] 28 gauge misc See Rx Instructions .ROUTE .MEDSUPPLY Qty: 50 11RF Rx Instructions: Check blood glucose daily for type 2 DM (DME) pen needle, diabetic [1st Tier Unifine Pentips Plus] 31 gauge x 3/16 needle See Rx Instructions .ROUTE .MEDSUPPLY Qty: 100 1RF Rx Instructions: use with lantus nightly Repatha SureClick 140 mg/mL pen injector 140 mg subcut Q2W Qty: 6 3RF omeprazole 20 mg capsule,delayed release(DR/EC) 20 mg PO DAILY Qty: 90 1RF dapagliflozin propanediol [Farxiga] 10 mg tablet 10 mg PO DAILY Qty: 90 1RF Discontinued isosorbide mononitrate 30 mg tablet extended release 24 hr 30 mg PO DAILY Rx Instructions: TAKE 1 TABLET BY MOUTH EVERY DAY metformin 1,000 mg tablet 1,000 mg PO BID losartan 25 mg tablet 25 mg PO DAILY atenolol 50 mg tablet 50 mg PO DAILY furosemide 40 mg Tablet 40 mg PO BIDLX Qty: 60 0RF spironolactone 25 mg Tablet 25 mg PO DAILY Qty: 30 0RF Patient Comments: PT UNSURE IF HE TAKES THIS MEDICATION, buspirone 5 mg tablet 5 mg PO BID Qty: 180 1RF Patient Comments: pt takes once a day Referrals / Follow Up: Xiang Rogers DO [Primary Care Provider] - Within 1 Week Magaly Abdi PA [Med Staff - Adv Practice Prof] - Within 2 Weeks Disposition Disposition (needs filled in before D/C Order can be placed): Home, Self Care 09/21/24 1622<Electronically signed by Donna Wolff MD>Donna Wolff MD CC: Dr. Clinton Soares, DO; Dr. Xiang Rogers DO; Dr. Seth Carrington, DO ~ Signed [facility] Work Phone: 1(158) 467-303906-18-2025 [facility]06-17-2025 Progress note Author Seth [facility] Note Date/Time September 20, 2024 7:12 pm [facility] Medical Records Department [address] [place] [address] Progress Note - Hospitalist 09/20/241909 MR#: [id number] Acct: [id number] Name: JAYLEN MEJIA Sr. Rep #:[id number] : 1960 64 From: Seth Carrington DO PCP: Dr. Xiang Rogers DO Status:[facility] IN Location: [place] [address] Hospitalist Note Additional note: Per my review of the patient's medications on 09/19/2024, the patient is taking the following medications at home Repatha every 2 weeks, Humalog 50-50 20 units every 8 AM, 20 units nightly 9 PM, Lantus 20 units subcu at bedtime, Farxiga 10 mg once a day, Dulera 2 puffs twice daily, albuterol 2 puffs every 6 hours as needed, omeprazole 20 mg daily, Zetia 10 mg daily, [id number] mg daily. Patient is not taking the following medications: Spironolactone 25 mg daily, Lasix 40 mg twice daily, atorvastatin 80 mg daily, metformin 1000 mg twice daily, Pletal 50 mg daily. 09/20/241911 <Electronically signed by Seth Carrington DO> Cosigner Signature (if applicable): CC: ~ Signed [facility] Work Phone: 1(943) 919-725306-17-2025 Progress note Author Seth [facility] Note Date/Time September 20, 2024 6:38 pm [facility] Medical Records Department [address] [place] [address] Progress Note - Hospitalist 09/19/241899 MR#: [id number] Acct: [id number] Name: JAYLEN MEJIA . Rep #:[id number] : 1960 64 From: Seth Carrington DO PCP: Dr. Xiang Rogers, DO Status:AD M IN Location: [place] [address]- 1 Reason for Visit Reason for Visit: Diagnoses Acute on chronic systolic (congestive) heart failure (09/18/24) Subjective Subjective Patient was seen and examined today, patient does not know any of his medications, I had his niece bring and his medicine bottles from home and he is not taking several medications that we had listed that he was on. Patient's blood pressure was slightly low today, I made the decision to stop his Lasix Marie will monitor his blood pressure. I will need to do a comprehensive list of medications when the patient is discharged. Patient's echocardiogram today showed an ejection fraction of 35%, talked briefly with cardiology about his care and they said to have him follow-up as an outpatient with them. Objective Data Objective Data Vital Signs: Vital Signs Temp Pulse Resp BP Pulse Ox O2 Del Method 97.6 F L 78 18 98/58 L 95 Room Air 09/19/24 18:19 09/19/24 18:19 09/19/24 18:19 09/19/24 18:19 09/19/24 18:19 09/19/24 18:19 Oxygen Delivery Method Room Air Weight: 87.467 kg Body Mass Index (BMI) 26.9 Intake & Output: Intake and Output for Last 24 Hours 09/17/24 09/18/24 09/19/24 23:59 23:59 23:59 Intake Total 220 / 520 1580 / 1580 Output Total 1800 / 1800 Balance 220 / 520 -220 / -220 Lab / Micro Data 09/19/24 05:25 09/20/24 06:35 Labs: Laboratory Results - last 24 hr 09/18/24 22:01: POC Glucose 327 H 09/19/24 05:25: WBC 7.7, RBC 4.76, Hgb 14.8, Hct 44.2, MCV 92.9, MCH 31.1, MCHC 33.5, RDW Std Deviation 43.1, RDW Coeff of Maycol 12.5, Plt Count 297, MPV 9.5, Sodium 136, Potassium 3.7, Chloride 99, Carbon Dioxide 24.3, Anion Gap 13, BUN 21 H, Creatinine 1.13, Estim Creat Clear Calc 70.34, Est GFR (MDRD) Non-Af 73, BUN/Creatinine Ratio 18.5, Glucose 187 H, Calcium 9.4 09/19/24 07:33: POC Glucose 170 H 09/19/24 11:24: POC Glucose 163 H 09/19/24 16:15: POC Glucose 193 H Radiography Diagnostic Testing: Radiology Impression Echocardiogram 09/18/24 13:45 Interpretation Summary The left ventricular ejection fraction is 35 %. Normal LV size. [place] : Akinetic. Mid-Anterior : Severely Hypokinetic. Compared to previous study, the left ventricular systolic function is the same..The global longitudinal strain is severely abnormal. Ordering Physician: Clinton Soares Referring Physician: Rebel Rogers M.D. Performed By: Lyn Hughes RCS Physical Exam Const alert, oriented x3, no apparent distress, average body habitus and healthy appearing Constitutional Narrative: Patient is a poor informant General Appearance: cooperative, well kempt and well developed Orientation / Consciousness: awake, oriented to person, oriented to place and oriented to time HEENT normocephalic, head/scalp atraumatic and moist oral mucous membranes Eyes PERRL, EOMs intact bilaterally and conjunctivae normal Neck supple, no JVD, thyroid normal and no carotid bruits General: trachea midline Resp normal respiratory effort, no retractions, no use of accessory muscles and clearto auscultation bilaterally Auscultation: Negative for rales, rhonchi or wheezes Cardio regular rate, regular rhythm, S1 normal heart sound, S2 normal heart sound, no murmurs, no rub and no gallops GI normal to inspection, nondistended, normoactive bowel sounds, soft to palpation,non-tender and non-distended Extremity no clubbing, cyanosis or edema Skin no rashes or lesions noted General Skin Exam: no breakdown Neuro oriented x3, CN's II-XII intact bilaterally, moves all extremities, no focal motor deficits and no sensory deficits noted Sensorium / Orientation: awake and alert Speech: speech normal Psych affect normal Assessment & Plan Assessment/Plan (1) Acute on chronic HFrEF (heart failure with reduced ejection fraction): PLAN: Plan 1. Acute on chronic congestive heart failure with reduced ejection fraction- patient's diuresis is being held at this time due to hypotension, patient will be reevaluated tomorrow, he will remain on a beta-jonatan for now #2 cardiomyopathy-most likely ischemic in nature, patient had a recent stress test in June of this year which did not show reversible ischemia. Patient's drug therapy will need to be maximized before he is evaluated for insertion of an ICD. This is going to be problematic with the patient's medical compliance being questionable. #3 noncompliance with medical treatment-it appears that the patient is not taking his medications as listed, these will need to be addressed when the patient is discharged home. It may be necessary for case management to have follow-up with the patient at home regarding his compliance with medications. #4 type 2 diabetes-blood sugars will be monitored, it appears that the patient is taking Humulin 50/50 20 units with breakfast and 35 units with dinner subcu daily, he is also taking Lantus insulin 20 units at bedtime. #5 hyperlipidemia-patient is on Repatha currently per cardiology #6 chronic obstructive pulmonary disease-patient is on 2 inhalers, he continues to smoke although he has been advised not to #7 hypotension-patient will be given a fluid bolus and reassessed in the morningfor possible discharge if he is not hypotensive. #8 peripheral vascular disease-patient at one time was on Pletal, he is not taking it currently even though he has the medication at home. Again I talked at length with the patient's niece rabia and reviewed all his medications that he has at his home, it is evident that he has not been taking his medications as directed including his Lasix and spironolactone. Total clinical time spent by myself addressing the patient's medical issues, reviewing all of his data, and collaborating with patient's care team: 50 minutes Charges/Coding Visit Charges Inpatient E&M: 61371 Subs Hosp 06/1837 <Electronically signed by Seth Carrington DO> Cosigner Signature (if applicable): CC: ~ Signed [facility] Work Phone: [phone] 495-379606-16-2025 Discharge summary Author Saúl Aguilar [facility] Note Date/Time September 18, 2024 10:3 5pm [facility] Medical Records Department [address] [place] [address] Emergency Department Summary 09/18/24 MR#: [id number] Acct: [id number] Name: JAYLEN MEJIA Sr. Rep #:[id number] : 1960 64 From: Saúl Saravia PCP: Dr. Xiang Rogers DO Status:AD M IN Location: [address] History of Present Illness Chief Complaint: Chest Pain Informant: patient Onset/Context/Timing Onset: Days (3) Activity at onset: gradual Timing: Continuous Quality: Positive for Heaviness and Pressure Location: Substernal Worsened By: Nothing Relieved By: - (Standing) Associated Symptoms: Positive for Dyspnea, Cough, Lightheadedness and Palpitations; Negative for Nausea, Vomiting, Diaphoresis, Fever or Acid Reflux Narrative Narrative: Patient presents with chest pressure that has been constant for the past 3 days. Patient states it is worse when he wakes up in the morning. Patient states it is better with standing. Patient describes it as a heaviness like someone is sitting on his chest. Patient states it is over the substernal area. Patient states it has been constant for the past 3 days. Patient admits to a cough and shortness of breath. Patient also admits to some lightheadedness and palpitations. Patient denies any nausea or vomiting. Patient denies any diaphoresis. Patient does admit to some increased swelling of his ankles and lower legs. CVD Risk Factors: Positive for Hypertension, Hypercholesterolemia and Smoking; Negative for Diabetes or Family History 1' </=55 PE Risk Factors: Negative for Recent Travel/Surgery, Recent Immobilization, Prior DVT or PE, Cancer or OCP + Smoking + >/=35 PFSH PFSH Medical History GERD (gastroesophageal reflux disease) Anxiety High blood cholesterol Diabetes mellitus Emphysema, unspecified COPD (chronic obstructive pulmonary disease) Decreased left ventricular function Encounter for screening for malignant neoplasm of lung in current smoker with 30pack year history or greater Stenosis of right carotid artery Insulin dependent diabetes mellitus History of non-ST elevation myocardial infarction (NSTEMI) (06/11/18) Emphysema lung Asthma Type 2 diabetes mellitus Arthritis Pancreatitis GERD (gastroesophageal reflux disease) Nicotine dependence Atherosclerosis of coronary artery of [place] heart without angina pectoris Hyperlipidemia Essential (primary) hypertension Home Medications ?Medication ?Instructions ?Recorded ?Last Taken ?Type blood sugar diagnostic (FreeStyle #50 ea 04/02/21 Unkn own Rx Test strips) blood-glucose meter (FreeStyle #1 ea 04/02/21 Unknown Rx System Kit) lancets 28 gauge (FreeStyle #50 ea 04/02/21 Unknown Rx Lancets) pen needle, diabetic 31 gauge x #100 ea 04/02/21 Unkno wn Rx 16 (1st Tier Unifine Pentips Plus) nitroglycerin 0.4 mg sublingual 0.4 mg sublingual Q5M PRN 04/24/22 09/18/24 Rx tablet Cardiac/Chest Pain #20 tabs alfuzosin 10 mg tablet,extended 10 mg PO DAILY 3 Unknown History release 24 hr buspirone 5 mg tablet 5 mg PO BID anxiety #180 tab s 06/26/23 09/18/24 Rx Handicap placard #1 ea 07/22/23 Unknown Rx isosorbide mononitrate 30 mg See Rx Instructions .Rout e 07/22/23 Unknown Rx tablet,extended release 24 hr .COMPLEX #90 tabs pen needle, diabetic 31 gauge x #100 ea 10/28/23 Unkno wn Rx 08/19 (Comfort EZ Pen Frederica) evolocumab 140 mg/mL subcutaneous 140 mg subcut Q2W #6 mL 05/09/24 09/12/24 Rx pen injector (Wolf Bernal) albuterol sulfate 90 mcg/actuation 2 puff inhalation Q 4H PRN 06/17/24 09/17/24 History aerosol inhaler shortness of breath or wheez ing atenolol 50 mg tablet 50 mg PO DAILY 06/17/2409/04 History ezetimibe 10 mg tablet 10 mg PO DAILY 06/17/2409/04 History insulin glargine 100 unit/mL (3 20 unit subcut DAILY D iabetes 06/17/24 09/18/24 History mL) subcutaneous pen (Lantus Solostar U-100 Insulin) losartan 25 mg tablet 25 mg PO DAILY 06/17/2409/04 History metformin 1,000 mg tablet 1,000 mg PO BID 06/17/24 History mometasone-formoterol HFA 100 2 puff inhalation BID CO PD 06/18/24 09/18/24 History mcg-5 mcg/actuation aerosol inhaler (Dulera) aspirin 81 mg chewable tablet 81 mg PO BREAKFAST #0 ta bs 06/20/24 09/18/24 Rx furosemide 40 mg tablet 40 mg PO BIDLX #60 tabs 06/04 10/28 Unknown Rx nicotine 21 mg/24 hr daily 21 mg transdermal DAILY #30 ea 06/20/24 Unknown Rx transdermal patch spironolactone 25 mg tablet 25 mg PO DAILY #30 tabs Unknown Rx cilostazol 50 mg tablet 50 mg PO DAILY Cholesterol # 60 tabs 09/09/24 09/18/24 Rx Farxiga 10 mg tablet 10 mg PO DAILY #90 TABLETS 0 09/13/24 09/18/24 Rx (dapagliflozin propanediol) omeprazole 20 mg capsule,delayed 20 mg PO DAILY #90 ca ps 09/13/24 09/18/24 Rx release clopidogrel 75 mg tablet 75 mg PO DAILY 09/18/2409/04 History fluticasone propionate 50 2 spray intranasal DAILY PRN nasal 09/18/24 Unknown History mcg/actuation nasal congestion spray,suspension (Flonase Allergy Relief) insulin lispro protamine-lispro 20 - 35 unit subcut BI D 09/18/24 09/17/24 History 100 unit/mL (50-50) subcutaneous pen (Humalog Mix 50-50 KwikPen) ondansetron 4 mg disintegrating 4 mg PO Q8H PRN Nausea 09/18/24 Unknown History tablet Allergy/AdvReac Type Severity Reaction Status Date / Time amoxicillin Allergy Angioedema Verified 09/18/24 09:57 lindane Allergy Rash Verified 09/18/24 09:57 Family History Father Asthma Alcoholism Arthritis Heart disease Hypertension High cholesterol CVA (cerebral vascular accident) Lung cancer Grandfather Myocardial infarction Surgical History S/P CABG x 4 History of hernia repair History of carotid endarterectomy (01/06/14) H/O coronary artery bypass surgery (2006) History of left heart catheterization (06/11/18) Social History Smoking Status: Heavy Smoker (>10/day) Tobacco: How many years used: 45 Electronic Cigarette Use: not used second hand exposure: Yes quit status: considering quitting alcohol intake: never substance use type: does not use caffeine: Yes Type: coffee Number of servings: 5 what type of physical activity do you participate in: none ROS ROS ED Constitutional Constitutional ED: Denies chills or fever(s) Eyes Eyes: Denies blurry vision or change in vision ENT ENT ED: Reports rhinorrhea and sore throat Cardiovascular Cardiovascular: Reports chest pain and palpitations Respiratory/Chest Respiratory/Chest: Reports cough and dyspnea Gastrointestinal Gastrointestinal: Denies nausea or vomiting Genitourinary Genitourinary ED: Denies dysuria or hematuria Musculoskeletal Musculoskeletal: Denies back pain or neck pain Integumentary Denies abscess or rash Neurologic Neurologic: Reports headache(s); Denies weakness Allergic/Immunologic Allergic/Immunologic ED: Denies mouth swelling or urticaria EXAM Physical Exam Const Vital Signs: 09/18/24 09:51 09/18/24 09:59 09/18/24 10:34 Temperature 96.9 F L Temperature Source Oral Pulse Rate 110 H Respiratory Rate 24 H Respiratory Effort Normal Non-Labored Respiratory Pattern Blood Pressure 97/82 H Blood Pressure Mean 87 Pulse Ox 95 Oxygen Delivery Method Room Air Room Air 09/18/24 10:44 09/18/24 10:54 09/18/24 12:05 Temperature Temperature Source Pulse Rate 101 H 97 98 Respiratory Rate 19 H 18 Respiratory Effort Respiratory Pattern Normal Blood Pressure 109/69 112/62 Blood Pressure Mean 78 Pulse Ox 93 Oxygen Delivery Method 09/18/24 12:07 09/18/24 13:00 09/18/24 13:33 Temperature Temperature Source Pulse Rate 97 101 H 95 Respiratory Rate 16 16 Respiratory Effort Respiratory Pattern Blood Pressure 131/85 H 136/74 H 118/77 Blood Pressure Mean 100 94 Pulse Ox 97 97 Oxygen Delivery Method Room Air Room Air 09/18/24 13:37 Temperature 98.2 F Temperature Source Pulse Rate 93 Respiratory Rate 15 Respiratory Effort Respiratory Pattern Blood Pressure 118/77 Blood Pressure Mean 90 Pulse Ox 98 Oxygen Delivery Method Positive well nourished and well developed General Appearance ED: well developed and NAD HEENT Reports moist mucous membranes normocephalic and atraumatic Neck supple and no JVD Chest Wall inspection of chest normal and palpation of chest normal Resp normal respiratory effort and clear to auscultation bilaterally Cardio regular rate and regular rhythm GI soft to palpation, non-tender and non-distended Extremity General Extremety ED: Yes edema; Negative for tenderness General Extremity: edema bilateral lower extremity Details: mild Neuro oriented x3, CN's II-XII intact bilaterally and no sensory deficits noted Sensorium / Orientation: awake and alert Motor Exam: strength 5/5 throughout Heart Score History: Slightly/Non-Suspicious ECG: Nonspecific Repolarization Age: >45 - <65 years Risk Factors: >/= 3 Risk Factors or History of CAD Troponin: >1 - <3 Normal Limit Score: 5 MDM MDM MDM Narrative Medical decision making narrative: Differential diagnosis includes but is not limited to cardiac dysrhythmia, cardiac ischemia, congestive heart failure, pneumonia, bronchitis, electrolyte abnormality, acute kidney injury, gastroesophageal reflux disease, and anxiety. EKG will be obtained to assess for cardiac dysrhythmia and cardiac ischemia. Chest x-ray will be obtained to assess for congestive heart failure and pneumonia. CBC will be obtained to assess for leukocytosis and anemia. Basic metabolic profile will be obtained to assess for electrolyte abnormality and renal function. High-sensitivity troponin will be obtained to assess for cardiac ischemia. 2-hour repeat high-sensitivity troponin will be obtained to assess for ongoing cardiac ischemia. BNP will be obtained to assess for congestive heart failure. History & Record Review Additional record(s) reviewed:: Prior outpatient record, Prior ED visit and Prior labs Lab Data Attestation: I reviewed the patient's lab results. Lab results narrative: CBC was reviewed and were within normal limits manage basic metabolic profile was reviewed. Glucose is mildly elevated at 184. Remainder is within normal limits. High-sensitivity troponin was reviewed and was elevated at 64. BNP wasreviewed and was slightly elevated at 2552. This was slightly increased from previous result. 2-hour repeat high-sensitivity troponin was reviewed and was 62. Labs: Laboratory Results - last 24 hr 09/18/24 09/18/24 10:05 12:01 WBC 7.6 RBC 4.64 Hgb 14.8 Hct 44.4 MCV 95.7 H MCH 31.9 MCHC 33.3 RDW Std Deviation 45.1 H RDW Coeff of Maycol 12.9 Plt Count 276 MPV 9.5 Immature Gran % (Auto) 0.300 Neut % (Auto) 61.9 Lymph % (Auto) 27.0 [place] % (Auto) 6.7 Eos % (Auto) 3.7 Baso % (Auto) 0.4 Absolute Neuts (auto) 4.7 Absolute Lymphs (auto) 2.05 Nucleated RBC % 0 Sodium 139 Potassium 5.0 Chloride 105 Carbon Dioxide 22.3 Anion Gap 12 BUN 17 Creatinine 1.01 Estim Creat Clear Calc 78.70 Est GFR (MDRD) Non-Af 83 BUN/Creatinine Ratio 16.5 Glucose 184 H Calcium 9.3 Troponin T High Sens 64 H* D Troponin T Hi Sens 2 Hr 62 H* NT pro BNP II 2552 H Radiography Diagnostic Testing: Clinical Impression(s) from Imaging Studies Chest X-Ray 09/18/24 10:26 IMPRESSION: No Acute Findings. Reading Location: [facility] Portable 1 view chest x-ray was obtained. On my independent interpretation, lung cardenas are clear. There is normal cardiac silhouette. Bony thorax is normal. There is no acute process noted. Radiologist also interpreted the x-ray and agrees. EKG Initial EKG: Attestation: I personally reviewed and interpreted this EKG as follows: Interpretation: Sinus Tachycardia (103) and Non-Specific ST Changes Comments: EKG was obtained. On my independent interpretation, it showed asinus tachycardia with a rate of 103. MS interval, QRS interval, and QTc intervals were all normal. [place] was normal. There are nonspecific ST-T wave changes. Prior EKG tracings: available for review Prior: Unchanged (07/29/2024) Treatment and Re-Evaluation :: Patient was given aspirin and sublingual nitroglycerin here. Patient has improvement of his symptoms with 2 sublingual nitroglycerin tablets. Patient was placed on nitroglycerin paste. Patient was advised of his findings. Patient has a HEART score of 5. Patient is agreeable for admission to the hospital. Case was discussed with the hospitalist. He will admit the patient to his service. Patient and spouse understood and were agreeable with the plan. All questions were answered. Discharge Plan Triage Chief Complaint: Chest Pain ED Provider: Saúl Aguilar Dx/Rx/DC Orders Clinical Impression: Chest pain, Essential (primary) hypertension, Nicotine dependence, Type 2 diabetes mellitus, CHF (congestive heart failure) Prescriptions: No Action nitroglycerin 0.4 mg tablet, sublingual 0.4 mg Sublingual Q5M PRN (Reason: Cardiac/Chest Pain) Qty: 20 1RF alfuzosin 10 mg tablet extended release 24 hr 10 mg PO DAILY Rx Instructions: administer after the same meal each day isosorbide mononitrate 30 mg tablet extended release 24 hr See Rx Instructions .ROUTE .COMPLEX Qty: 90 3RF Dose Instruction: TAKE 1 TABLET BY MOUTH EVERY DAY Rx Instructions: TAKE 1 TABLET BY MOUTH EVERY DAY (DME) Handicap placard See Rx Instructions .Route .MEDSUPPLY Qty: 1 0RF Rx Instructions: Due to COPD, unable to walk 50 yards without assistance, duration 5 years. (DME) pen needle, diabetic [Comfort EZ Pen Frederica] 31 gauge x 5/16 needle See Rx Instructions .Route Qty: 100 3RF Rx Instructions: As directed clopidogrel 75 mg tablet 75 mg PO DAILY ondansetron 4 mg tablet,disintegrating 4 mg PO Q8H PRN (Reason: Nausea) fluticasone propionate [Flonase Allergy Relief] 50 mcg/actuation spray,suspension 2 spray intranasal DAILY PRN (Reason: nasal congestion) Rx Instructions: administer into each nostril Humalog Mix 50-50 KwikPen 100 unit/mL (50-50) insulin pen 20 - 35 unit SC BID Patient Comments: pt based on sliding scale Rx Instructions: 9 pm: eat a meal, take 20 units insulin 1 am: eat a meal during work break 8 am: eat a meal take 20 units insulin metformin 1,000 mg tablet 1,000 mg PO BID losartan 25 mg tablet 25 mg PO DAILY albuterol sulfate 90 mcg/actuation HFA aerosol inhaler 2 puff inhalation Q4H PRN (Reason: shortness of breath or wheezing) atenolol 50 mg tablet 50 mg PO DAILY ezetimibe 10 mg tablet 10 mg PO DAILY insulin glargine [Lantus Solostar U-100 Insulin] 100 unit/mL (3 mL) insulin pen 20 unit subcut DAILY Dulera 100-5 mcg/actuation HFA aerosol inhaler 2 puff inhalation BID furosemide 40 mg Tablet 40 mg PO BIDLX Qty: 60 0RF spironolactone 25 mg Tablet 25 mg PO DAILY Qty: 30 0RF Patient Comments: PT UNSURE IF HE TAKES THIS MEDICATION, nicotine 21 mg/24 hr Patch 24 Hour 21 mg transdermal DAILY Qty: 30 0RF aspirin 81 mg Tablet,Chewable 81 mg PO BREAKFAST Qty: 0 0RF (DME) FreeStyle Test Strip See Rx Instructions .ROUTE .MEDSUPPLY Qty: 50 11RF Rx Instructions: check blood glucose daily (DME) blood-glucose meter [FreeStyle System Kit] Kit See Rx Instructions .ROUTE .MEDSUPPLY Qty: 1 0RF Rx Instructions: check blood glucose daily for type 2 DM (DME) lancets [FreeStyle Lancets] 28 gauge misc See Rx Instructions .ROUTE .MEDSUPPLY Qty: 50 11RF Rx Instructions: Check blood glucose daily for type 2 DM (DME) pen needle, diabetic [1st Tier Unifine Pentips Plus] 31 gauge x 3/16 needle See Rx Instructions .ROUTE .MEDSUPPLY Qty: 100 1RF Rx Instructions: use with lantus nightly buspirone 5 mg tablet 5 mg PO BID Qty: 180 1RF Patient Comments: pt takes once a day Repatha SureClick 140 mg/mL pen injector 140 mg subcut Q2W Qty: 6 3RF cilostazol 50 mg tablet 50 mg PO DAILY Qty: 60 5RF omeprazole 20 mg capsule,delayed release(DR/EC) 20 mg PO DAILY Qty: 90 1RF dapagliflozin propanediol [Farxiga] 10 mg tablet 10 mg PO DAILY Qty: 90 1RF Primary Care Provider: iXang Rogers Referrals: Xiang Rogers, [Primary Care Provider] - Print Language: Bruneian Disposition Disposition: Acute Care Hospital [facility] What to do if you have Problems For any increased pain, shortness of breath, bleeding, nausea or vomiting, chestpain, or any unexpected problems, contact your Primary Care Provider. Call [facility] ([phone]) or report to the closest Emergency Room. Call 911 if necessary. 09/18/242234 <Electronically signed by Saúl Aguilar DO> Cosigner Signature (if applicable): CC: Dr. Xiang Rogers, ~ Signed [facility] Work Phone: [phone] History and physical note Author Clinton Soares [facility] Note Date/Time September 18, 2024 2:[address] [facility] Medical Records Department [address] [place] [address] H&P Exam - Hospitalist 09/18/24 1339 MR#: [id number] Acct: [id number] Name: JAYLEN MEJIA . Rep #:[id number] : 1960 64 From: Clinton khan DO PCP: Dr. Xiang Rogers, Status:[facility] Location: [facility] [id number] HPI - General General Date of Admission: 09/18/24 Date of Service: 09/18/24 Chief Complaint: Shortness of breath and chest discomfort HPI Narrative JAYLEN MEJIA, is a 64 M who presented to [facility] ED on 09/18/2024 with chest pain and volume overload. [facility]. Has history of CABG x 4 back in 2006. Nuclear stress test showed evidence of apical infarct, and echocardiogram showed worsening EF of 35 to 40%. However as patient was asymptomatic and has poorly controlled diabetes, recommendation was made for maximizing medical therapy on discharge. He presents today with 3-day history of worsening shortness of breath, chest discomfort and lower extremity swelling. Reports taking his home Lasix as prescribed and has had fairly good urine output recently. Sinus tachycardia to the 100s noted in the ED but otherwise hemodynamically stable on room air at rest. Chest x-ray was called is not acute but on my review appears to show mild volume overload in comparison to previous chest x-ray from 3 monthsago. BNP elevated at 2552. Troponin trend 64 > 62. No EKG changes noted. Patient was given doses of aspirin and nitro and reported improvement in his chest pain. Given these findings, hospitalist was then contacted for admission. I saw the patient at bedside in the ED. He was sitting up comfortably in bedside chair, conversing normally, in no acute distress. He was breathing comfortably on room air at rest. He did have +2-3 lower extremity pitting edemabilaterally and bibasilar crackles noted on lung exam. He denied any recent illnesses. Lives at home and takes care of his 8-year-old grandson, states he has had good functional status to this point. No other acute concerns at this time. Will be admitted for further management. [facility] Medical History GERD (gastroesophageal reflux disease) Anxiety High blood cholesterol Diabetes mellitus Emphysema, unspecified COPD (chronic obstructive pulmonary disease) Decreased left ventricular function Encounter for screening for malignant neoplasm of lung in current smoker with 30pack year history or greater Stenosis of right carotid artery Insulin dependent diabetes mellitus History of non-ST elevation myocardial infarction (NSTEMI) (06/11/18) Emphysema lung Asthma Type 2 diabetes mellitus Arthritis Pancreatitis GERD (gastroesophageal reflux disease) Nicotine dependence Atherosclerosis of coronary artery of [place] heart without angina pectoris Hyperlipidemia Essential (primary) hypertension Home Medications ?Medication ?Instructions ?Recorded ?Last Taken ?Type blood sugar diagnostic (FreeStyle #50 ea 04/02/21 Unkn own Rx Test strips) blood-glucose meter (FreeStyle #1 ea 04/02/21 Unknown Rx System Kit) lancets 28 gauge (FreeStyle #50 ea 04/02/21 Unknown Rx Lancets) pen needle, diabetic 31 gauge x #100 ea 04/02/21 Unkno wn Rx 3/16 (1st Tier Unifine Pentips Plus) nitroglycerin 0.4 mg sublingual 0.4 mg sublingual Q5M PRN 04/24/22 09/18/24 Rx tablet Cardiac/Chest Pain #20 tabs alfuzosin 10 mg tablet,extended 10 mg PO DAILY 3 Unknown History release 24 hr buspirone 5 mg tablet 5 mg PO BID anxiety #180 tab s 06/26/23 09/18/24 Rx Handicap placard #1 ea 07/22/23 Unknown Rx isosorbide mononitrate 30 mg See Rx Instructions .Rout e 07/22/23 Unknown Rx tablet,extended release 24 hr .COMPLEX #90 tabs pen needle, diabetic 31 gauge x #100 ea 10/28/23 Unkno wn Rx 5/16 (Comfort EZ Pen Frederica) evolocumab 140 mg/mL subcutaneous 140 mg subcut Q2W #6 mL 05/09/24 09/12/24 Rx pen injector (Wolf Bernal) albuterol sulfate 90 mcg/actuation 2 puff inhalation Q 4H PRN 06/17/24 09/17/24 History aerosol inhaler shortness of breath or wheez ing atenolol 50 mg tablet 50 mg PO DAILY 06/17/2409/04 History ezetimibe 10 mg tablet 10 mg PO DAILY 06/17/2409/04 History insulin glargine 100 unit/mL (3 20 unit subcut DAILY D iabetes 06/17/24 09/18/24 History mL) subcutaneous pen (Lantus Solostar U-100 Insulin) losartan 25 mg tablet 25 mg PO DAILY 06/17/2409/04 History metformin 1,000 mg tablet 1,000 mg PO BID 06/17/24 History mometasone-formoterol HFA 100 2 puff inhalation BID CO PD 06/18/24 09/18/24 History mcg-5 mcg/actuation aerosol inhaler (Dulera) aspirin 81 mg chewable tablet 81 mg PO BREAKFAST #0 ta bs 06/20/24 09/18/24 Rx furosemide 40 mg tablet 40 mg PO BIDLX #60 tabs 06/04 10/28 Unknown Rx nicotine 21 mg/24 hr daily 21 mg transdermal DAILY #30 ea 06/20/24 Unknown Rx transdermal patch spironolactone 25 mg tablet 25 mg PO DAILY #30 tabs Unknown Rx cilostazol 50 mg tablet 50 mg PO DAILY Cholesterol # 60 tabs 09/09/24 09/18/24 Rx Farxiga 10 mg tablet 10 mg PO DAILY #90 TABLETS 0 09/13/24 09/18/24 Rx (dapagliflozin propanediol) omeprazole 20 mg capsule,delayed 20 mg PO DAILY #90 ca ps 09/13/24 09/18/24 Rx release clopidogrel 75 mg tablet 75 mg PO DAILY 09/18/2409/04 History fluticasone propionate 50 2 spray intranasal DAILY PRN nasal 09/18/24 Unknown History mcg/actuation nasal congestion spray,suspension (Flonase Allergy Relief) insulin lispro protamine-lispro 20 - 35 unit subcut BI D 09/18/24 09/17/24 History 100 unit/mL (50-50) subcutaneous pen (Humalog Mix 50-50 KwikPen) ondansetron 4 mg disintegrating 4 mg PO Q8H PRN Nausea 09/18/24 Unknown History tablet Allergy/AdvReac Type Severity Reaction Status Date / Time amoxicillin Allergy Angioedema Verified 09/18/24 09:57 lindane Allergy Rash Verified 09/18/24 09:57 Family History Father Asthma Alcoholism Arthritis Heart disease Hypertension High cholesterol CVA (cerebral vascular accident) Lung cancer Grandfather Myocardial infarction Surgical History S/P CABG x 4 History of hernia repair History of carotid endarterectomy (01/06/14) H/O coronary artery bypass surgery (2006) History of left heart catheterization (06/11/18) Social History Smoking Status: Heavy Smoker (>10/day) Tobacco: How many years used: 45 Electronic Cigarette Use: not used second hand exposure: Yes quit status: considering quitting alcohol intake: never substance use type: does not use caffeine: Yes Type: coffee Number of servings: 5 what type of physical activity do you participate in: none ROS Constitutional Constitutional: Denies chills, fatigue, fever(s) or weakness Eyes Eyes: Denies change in vision Cardiovascular Cardiovascular: Reports chest pain, dyspnea on exertion and edema; Denies lightheadedness or palpitations Respiratory/Chest Respiratory/Chest: Reports shortness of breath at rest and shortness of breath with exertion; Denies cough, productive cough or wheezing Gastrointestinal Gastrointestinal: Denies abdominal pain Genitourinary Genitourinary: Denies dysuria Musculoskeletal Musculoskeletal: Denies arthralgias or myalgias Vital Signs Vital Signs Vital Signs: 09/18/24 09:51 09/18/24 09:59 09/18/24 10:34 Temperature 96.9 F L Temperature Source Oral Pulse Rate 110 H Respiratory Rate 24 H Respiratory Effort Normal Non-Labored Respiratory Pattern Blood Pressure 97/82 H Blood Pressure Mean 87 Pulse Ox 95 Oxygen Delivery Method Room Air Room Air 09/18/24 10:44 09/18/24 10:54 09/18/24 12:05 Temperature Temperature Source Pulse Rate 101 H 97 98 Respiratory Rate 19 H 18 Respiratory Effort Respiratory Pattern Normal Blood Pressure 109/69 112/62 Blood Pressure Mean 78 Pulse Ox 93 Oxygen Delivery Method 09/18/24 12:07 09/18/24 13:00 09/18/24 13:33 Temperature Temperature Source Pulse Rate 97 101 H 95 Respiratory Rate 16 16 Respiratory Effort Respiratory Pattern Blood Pressure 131/85 H 136/74 H 118/77 Blood Pressure Mean 100 94 Pulse Ox 97 97 Oxygen Delivery Method Room Air Room Air 09/18/24 13:37 Temperature 98.2 F Temperature Source Pulse Rate 93 Respiratory Rate 15 Respiratory Effort Respiratory Pattern Blood Pressure 118/77 Blood Pressure Mean 90 Pulse Ox 98 Oxygen Delivery Method Weight Weight: 87.467 kg Body Mass Index (BMI) 26.9 Physical Exam Const alert, oriented x3, no apparent distress and average body habitus Constitutional Narrative: Upper middle-aged male, appears older than stated age, mildly fatigued appearingbut otherwise sitting up comfortably in bedside chair, conversing normally, in no acute distress. General Appearance: cooperative and comfortable HEENT normocephalic, head/scalp atraumatic, hearing grossly normal bilaterally, nasal mucous membranes and turbinates normal and moist oral mucous membranes Eyes PERRL, EOMs intact bilaterally and conjunctivae normal Neck full ROM Chest inspection of chest normal Resp normal respiratory effort and no use of accessory muscles Resp Narrative: Breathing comfortably on room air at rest. Bibasilar crackles noted but otherwise good air movement throughout with no wheezing noted. Cardio no murmurs and peripheral pulses 2+ throughout Cardio Narrative: Tachycardic, regular rhythm. GI normal to inspection, nondistended, normoactive bowel sounds, soft to palpation,non-tender and non-distended Back/Spine normal ROM Extremity Extremity Narrative: +2-3 lower extremity pitting edema noted. Venous stasis changes noted as well. Psych mental status grossly normal Results Lab / Micro Data 09/18/24 10:05 09/18/24 10:05 Labs: Laboratory Results - last 24 hr 09/18/24 10:05: WBC 7.6, RBC 4.64, Hgb 14.8, Hct 44.4, MCV 95.7 H, MCH 31.9, MCHC 33.3, RDW Std Deviation 45.1 H, RDW Coeff of Maycol 12.9, Plt Count 276, MPV 9.5, Immature Gran % (Auto) 0.300, Neut % (Auto) 61.9, Lymph % (Auto) 27.0, [place]% (Auto) 6.7, Eos % (Auto) 3.7, Baso % (Auto) 0.4, Absolute Neuts (auto) 4.7, Absolute Lymphs (auto) 2.05, Nucleated RBC % 0, Sodium 139, Potassium 5.0, Chloride 105, Carbon Dioxide 22.3, Anion Gap 12, BUN 17, Creatinine 1.01, Estim Creat Clear Calc 78.70, Est GFR (MDRD) Non-Af 83, BUN/Creatinine Ratio 16.5, Glucose 184 H, Calcium 9.3, Troponin T High Sens 64 H* D, NT pro BNP II 2552 H 09/18/24 12:01: Troponin T Hi Sens 2 Hr 62 H* Imaging Radiology Impression Chest X-Ray 09/18/24 10:26 IMPRESSION: No Acute Findings. Reading Location: [id number] Assessment & Plan Assessment/Plan (1) Acute on chronic HFrEF (heart failure with reduced ejection fraction): PLAN: Plan Patient is a 64-year-old male who presented to [facility] ED on 09/18/2024 with shortness of breath, chest discomfort and worsening lower extremity edema. 1. Acute HFrEF exacerbation with elevated troponins; history of CAD with CABG, hypertension, hyperlipidemia, moderate aortic valve stenosis, bilateral carotid artery stenosis, history of PAD with claudication ? Admit under inpatient status to PCU. Follows with outpatient cardiology and vascular surgery, see recent office notes for further details. Presented with chest pain and shortness of breath with worsening LE edema. Chest x-ray with mild worsening volume overload, BNP 2550. Troponin trend 64 > 62, EKG stable from previous. Had heart failure exacerbation in June; echo showed EF 35 to 40% with apical hypokinesis, and stress test showed evidence of distal anterior,apex and inferior apical infarct. Per cardiology then, given patient was asymptomatic and had poorly controlled diabetes, no need for intervention and plan was for maximizing medical therapy. Chest pain here did seem to improve with baby aspirin and nitroglycerin in the ED. I am concerned that patient may have ongoing ischemic disease leading to worsening heart failure but unclear if patient would be a candidate for further intervention. Repeat echo ordered; pending this result, can consider cardiology consult. Will treat with IV Lasix 40 mg twice daily for now, monitor daily BMP and urine output. Continue home aspirin, Plavix, atenolol, Zetia, Farxiga, Imdur and cilostazol. Is on a PCSK9 inhibitor every 2 weeks at home. Will hold home losartan and spironolactone fornow given mild hyperkalemia as noted below. 2. Poorly controlled type 2 diabetes mellitus ? Last A1c 12.5% on 08/02/2024 with A1c values consistently above 10% since [id number]. Repeat A1c ordered. Glucose 184 on admit. Patient notes that glucoses have been better controlled at home recently. Will treat with Lantus 20 units daily and Humalog 8 units plus sliding scale insulin with meals, adjust as needed. 3. Mild hyperkalemia ? Potassium 5.0 on admit. Giving IV Lasix as noted above and holding home losartan and spironolactone for now, low threshold to restart as needed. Monitor daily BMP. Chronic medical conditions: ? COPD: Stable on room air with no wheezing on exam, not in acute exacerbation. Continue home inhalers. ? GERD: Continue home PPI. ? Tobacco abuse: Continue home nicotine patch. ? Anxiety/depression: Continue home BuSpar and alfusozin. DVT prophylaxis: Lovenox CODE STATUS: Full code, verify Expected disposition: Home, TBD Total clinical time spent by myself addressing the patient's medical issues, reviewing all the data, and collaborating with patient's care team: 75 minutes. Charges/Coding Visit Charges Inpatient E&M: 88001 Init Hosp L3 09/18/24 1416 <Electronically signed by Clinton Soares DO> Cosigner Signature (if applicable): CC: Dr. Clinton Soares DO; Dr. Xiang Rogers DO~ Signed [facility] Work Phone: 1(121) 854-794806-15-2025 Radiology Diagnostic study [facility]04-08-2025 Evaluation note* Diagnosis Onset Date Resolution Status Admit Date Aortic valve stenosis acute Apr 2024 9:51am LV dysfunction acute July 12, 2024 9:51am Essential (primary) hypertension chr onic July 12, 2024 9:51am Hyperlipidemia chronic July 12, 2024 9:51am Nicotine dependence chronic July 12, 2024 9:51am Stenosis of right carotid artery chr onic July 12, 2024 9:51am H/O coronary artery bypass surgery 2007 resolved July 12, 2024 9:51am Atherosclerosis of right low er extremity with ulceration acute July 14, 2024 9:54am CHF (congestive heart failure) acute August 02, 2024 11:21am Type 2 diabetes mellitus rody ated with insulin acute August 02, 2024 11:21am Hyperlipidemia chronic July 11:21am Nicotine dependence chronic August 02, 2024 11:21am Acute on chronic HFrEF (hear t failure with reduced ejection fraction) chronic September 18, 2024 1:39pm Aortic valve stenosis acute Sep 9:55am LV dysfunction acute September 27, 2024 9:55am Essential (primary) hypertension chr onic September 27, 2024 9:55am Hyperlipidemia chronic September 27, 2024 9:55am Nicotine dependence chronic September 27, 2024 9:55am Stenosis of right carotid artery chr onic September 27, 2024 9:55am H/O coronary artery bypass surgery 2007 resolved September 27, 2024 9:55am [facility] Work Phone: 1(117) 885-636103-17-2025 [facility]03-15-2025 Evaluation note* Diagnosis Onset Date Resolution Status Admit Date Acute hypoxemic respiratory failure acute June 18, [...] 18, 2024 4:45am Type 2 diabetes mellitus rody ated with insulin acute June 18, 2024 4:45am COPD exacerbation chronic June 042024 4:45am Aortic valve stenosis acute Jul 9:51am LV dysfunction acute July 12, 2024 9:51am Essential (primary) hypertension chr onic July 12, 2024 9:51am Hyperlipidemia chronic July 12, 2024 9:51am Nicotine dependence chronic July 12, 2024 9:51am Stenosis of right carotid artery chr onic July 12, 2024 9:51am H/O coronary artery bypass surgery 2007 resolved July 12, 2024 9:51am Atherosclerosis of right low er extremity with ulceration acute July 14, 2024 9:54am CHF (congestive heart failure) acute August 02, 2024 11:21am Type 2 diabetes mellitus rody ated with insulin acute August 02, 2024 11:21am Hyperlipidemia chronic July 11:21am Nicotine dependence chronic August 02, 2024 11:21am Acute on chronic HFrEF (hear t failure with reduced ejection fraction) chronic September 18, 2024 1:39pm [facility] Work Phone: 1(809) 312-984303-15-2025 Evaluation note* Diagnosis Onset Date Resolution Status Admit Date Acute hypoxemic respiratory failure acute June 18, [...] 18, 2024 4:45am Type 2 diabetes mellitus rody ated with insulin acute June 18, 2024 4:45am COPD exacerbation chronic June 042024 4:45am Aortic valve stenosis acute Jul 9:51am LV dysfunction acute July 12, 2024 9:51am Essential (primary) hypertension chr onic July 12, 2024 9:51am Hyperlipidemia chronic July 12, 2024 9:51am Nicotine dependence chronic July 12, 2024 9:51am Stenosis of right carotid artery chr onic July 12, 2024 9:51am H/O coronary artery bypass surgery 2007 resolved July 12, 2024 9:51am Atherosclerosis of right low er extremity with ulceration acute July 14, 2024 9:54am CHF (congestive heart failure) acute August 02, 2024 11:21am Type 2 diabetes mellitus rody ated with insulin acute August 02, 2024 11:21am Hyperlipidemia chronic July 11:21am Nicotine dependence chronic August 02, 2024 11:21am Acute on chronic HFrEF (hear t failure with reduced ejection fraction) chronic September 18, 2024 1:39pm Aortic valve stenosis acute Sep 9:55am LV dysfunction acute September 27, 2024 9:55am Essential (primary) hypertension chr onic September 27, 2024 9:55am Hyperlipidemia chronic September 27, 2024 9:55am Nicotine dependence chronic September 27, 2024 9:55am Stenosis of right carotid artery chr onic September 27, 2024 9:55am H/O coronary artery bypass surgery 2007 resolved September 27, 2024 9:55am [facility] Work Phone: 1(523) 436-369803-12-2025 [facility]02-11-2025 Evaluation note* Diagnosis Onset Date Resolution Status Admit Date Atherosclerosis of right low er extremity with ulceration acute 2024 12:40pm Acute hypoxemic respiratory failure acute [...] July 12, 2024 9:51am Atherosclerosis of right low er extremity with ulceration acute July 14, 2024 9:54am CHF (congestive heart failure) acute August 02, 2024 11:21am Type 2 diabetes mellitus treated with insulin acute August 02, 2024 11:21am Hyperlipidemia chronic July 11:21am Nicotine dependence chronic August 02, 2024 11:21am [facility] Work Phone: 1(753) 967-709211-20-2024 Evaluation note* Diagnosis Onset Date Resolution Status Admit Date Fissure in skin of right foot acute February 24, 2024 11:07am PAD (peripheral artery disease) acut e February 24, 2024 11:07am Essential (primary) hypertension chr onic February 24, 2024 12:58pm Insulin dependent diabetes mellitus chronic February 23 024 12:58pm Nicotine dependence chronic Novem 2023 [...] March 072023 9:49am Nicotine dependence chronic Decem 2023 9:49am Stenosis of right carotid artery chr onic April 01, 2024 9:49am H/O coronary artery bypass surgery 2007 resolved April 01 024 9:49am Atherosclerosis of right low er extremity with ulceration acute Apruar y 2024 12:56pm Atherosclerosis of right low er extremity with ulceration acute Apruar y 2024 10:46am Fissure in skin of right foot acute May 03, 2024 10:46am Hypertriglyceridemia acute Caesar jagjit 2024 10:46am Type 2 diabetes mellitus acute May 03, 2024 10:46am 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 Herrera Espinosa Hypertension Other emphysema (HCC) [...] of care. This note was generated using BioArray software. It may contain errors in wording, punctuation, or spelling. Gab Culver APRN.TURNER documented in this encounterOhio[facility] Hospital Discharge instructions Additional Instructions Your x-ray [...] please return [facility] the [facility] Work Phone: 1(514) 809-968611-01-2022 NoteHNO ID: [id number] Author: Yamilka Parekh MD Service: ? Author [...] non-ST elevation myocardial infarction (NSTEMI) 06/11/[address] Herrera Espinosa Hypertension Other emphysema (HCC) [...] any blood vessels/nerv (more content not included)... [facility]11-01-2022 History of Present illness Narrative* Yamilka Parekh [...] non-ST elevation myocardial infarction (NSTEMI) 06/11/[address] Herrera Espinosa Hypertension Other emphysema (HCC) [...] Straightforward Yamilka Parekh MD documented in this encounterOhio[facility]10-25-2022 NoteHNO ID: [id number] Author: Yamilka Parekh MD Service: ? Author [...] non-ST elevation myocardial infarction (NSTEMI) 06/11/[address] Herrera Espinosa Hypertension Other emphysema (HCC) [...] ?C (97.3 ?F), height 180.3 cm (5' 11), weight 87.4 kg (192 lb 9.6 oz), [...] and completing appropriate m (more content not included)...[facility]10-25-2022 History of Present illness Narrative* Yamilka Parekh [...] non-ST elevation myocardial infarction (NSTEMI) 06/11/[address] Herrera Espinosa Hypertension Other emphysema (HCC) [...] C (97.3 F), height 180.3 cm (5' 11), weight 87.4 kg (192 lb 9.6 oz), [...] documentation. Yamilka Parekh MD documented in this encounterOhio[facility]10-25-2022 NoteHNO ID: [id number] Author: RT Benji(Suman) Service: ? Author Type: Yarn Comber Type: Progress Notes Filed: 01/28/2022 3:01 PM [...] BY: RT Betsy(Suman) January 28, 2022 3:01 [facility]10-25-2022 History of Present illness Narrative* Hazel Bright RT(R) - 01/28/2022 10:00 AM EDT Radiology Service [...] 28, 2022 3:01 PM documented in this encounterOhio[facility]10-03-2022 NoteHNO ID: [id number] Author: Yamilka Parekh MD Service: ? Author Type: Physician Type: Progress Notes Filed: 01/08/2022 12:57 PM Note Text: Jaylen Mejia 1960 REFERRING [...] non-ST elevation myocardial infarction (NSTEMI) 06/11/[address] Herrera Espinosa Hypertension Other emphysema (HCC) [...] REVIEW OF SYSTEMS: General: (more content not included)...[facility]10-03-2022 History of Present illness Narrative* Yamilka Parekh [...] non-ST elevation myocardial infarction (NSTEMI) 06/11/[address] Herrera Espinosa Hypertension Other emphysema (HCC) [...] of any pertinent laboratory studies/radiological imaging/medical records, espa-[id number] care, obtaining oral medical history from the patient in this encounter, performing a medically appropriate examination, counseling and educating the patient/family/caregiver, and ordering and/or scheduling of medications/tests/procedures, and completing appropriate medical documentation. Yamilka Parekh MD documented in this encounterOhio[facility]10-03-2022 Nurse Note* Allison Haines RN - 01/06/2022 [...] Unknown Allison Haines RN documented in this encounterOhio[facility]04-14-2022 NoteHNO ID: [id number] Author: Gab Culver APRN.BRUSHER AND SHEARER Service: ? Author Type: Nurse Practitioner Type: [...] type 2 in obese (HCC) - Hyperlipidemia Hog Raiser Dr. Herrera Espionsa - Hypertension - Pancreatitis - Tobacco use [...] He is not diaphoretic (more content not included)...[facility]04-14-2022 Instructions* Patient Instructions* Gab Culver APRN.CNP - 07/18/2021 1:15 PM EDT RESPIRATORY INFECTION [...] spread by coughs, sneezes, anddirect contact, especially [id number]. A respiratory tract infection usually clears up [...] 102 F (39 C). documented in this encounterOhio[facility]04-14-2022 History of Present illness Narrative* Gab Villegasalton, POWER MANAGER.BRUSHER AND SHEARER - 07/18/2021 1:02 PM EDT Subjective HPI [...] mellitus type 2 in obese (HCC) Hyperlipidemia Hog Raiser Dr. Herrera Espinosa Hypertension Pancreatitis Tobacco use [...] of care. This note was generated using BioArray software. It may contain errors in wording,punctuation, or spelling. Gab Culver APRN.TURNER documented in this encounterOhiohealth [facility]12-27-2021 NoteHNO ID: [id number] Author: Maxx Owen APRN.BRUSHER AND SHEARER Service: ? Author Type: Nurse Practitioner Type: [...] type 2 in obese (HCC) - Hyperlipidemia Hog Raiser Dr. Herrera Espinosa - Hypertension - Pancreatitis [...] see if it reli (more content not included)...[facility]03-08-2019 Evaluation note* Diagnosis Onset Date Resolution Status [...] mellitus chronic Nicotine dependence chronic [facility] Work Phone: Evaluation note* Diagnosis URI with cough and congestion- Primary [facility] encounter [facility]* Diagnosis Onset Date Resolution Status 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 Hyperlipidemia chronic Insulin dependent diabetes mellitus chronic H/O coronary artery bypass surgery 2006 resolved [facility] Work Phone: Evaluation note* Diagnosis Onset Date Resolution Status Essential (primary) hypertension chronic Insulin dependent diabetes mellitus chronic Stenosis of right carotid artery chronic H/O coronary artery bypass surgery 2007 resolved [facility] Work Phone: Evaluation note* Diagnosis Onset Date Resolution Status Essential (primary) hypertension chronic Insulin dependent diabetes mellitus chronic Stenosis of right carotid artery chronic H/O coronary artery bypass surgery 2006 resolved Essential (primary) hypertension chronic Insulin dependent diabetes mellitus chronic Stenosis of right carotid artery chronic [facility] Work Phone: Evaluation note* Diagnosis Left groin pain- Primary Abdominal pain, left lower quadrant documented [facility] encounter [facility] [place] [facility]* Diagnosis Left groin pain- Primary Abdominal pain, left lower quadrant [facility] [place] [facility]* Diagnosis Recurrent left inguinal hernia- Primary Inguinal hernia without mention of obstruction or gangrene, recurrent unilateral or unspecified documented in this encounter [facility] [place] [facility]* Diagnosis Onset Date Resolution Status Essential (primary) hypertension chronic Insulin dependent diabetes mellitus chronic Stenosis of right carotid artery chronic [facility] Work Phone: Evaluation note* Diagnosis Onset Date Resolution Status Essential (primary) hypertension chronic Insulin dependent diabetes mellitus chronic Stenosis of right carotid artery chronic [id number] acute Nicotine dependence chronic [facility] Work Phone: Evaluation note* Diagnosis Onset Date Resolution Status Essential (primary) hypertension chronic Insulin dependent diabetes mellitus chronic Stenosis of right carotid artery chronic [id number] acute Nicotine dependence chronic Essential (primary) hypertension chronic Hyperlipidemia chronic Insulin dependent diabetes mellitus chronic H/O coronary artery bypass surgery 2007 resolved NSTEMI, initial episode of care acute Insulin dependent diabetes mellitus chronic Nicotine dependence chronic [facility] Work Phone: Evaluation note* Diagnosis Onset Date Resolution Status [id number] acute Nicotine dependence chronic Essential (primary) hypertension [...] artery bypass surgery 2007 resolved [facility] Work Phone: Evaluation note* Diagnosis Left groin pain Abdominal pain, left lower quadrant documented [facility] encounter [facility]* Diagnosis Onset Date Resolution Status Essential (primary) hypertension chronic Hyperlipidemia chronic Nicotine dependence chronic Stenosis of right carotid artery chronic H/O coronary artery bypass surgery 2006 resolved Non-STEMI (non-ST elevated myocardial infarction) acute 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 Essential (primary) hypertension chronic Insulin dependent diabetes mellitus chronic Nicotine dependence chronic [facility] Work Phone: Evaluation note* Diagnosis Onset Date Resolution Status Non-STEMI (non-ST elevated myocardial infarction) acute 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 Essential (primary) hypertension chronic Insulin dependent diabetes mellitus chronic Nicotine dependence chronic [id number] acute Nicotine dependence chronic [facility] Work Phone: Evaluation note* Diagnosis Sinobronchitis- Primary Unspecified sinusitis (chronic) documented in this encounter [facility] HospitalHistory and physical note Author Clinton Soares [facility] Note Date/Time September 18, 2024 2:[address] [facility] Medical Records Department [address] [place] [id number] H&P Exam - Hospitalist 09/18/24 1339 MR#: [id number] Acct: [id number] Name: JAYLEN MEJIA Hannah Sr. Rep #:[id number] : 1960 64 From: Clinton khan DO PCP: Dr. Xiang Rogers, DO Status:AD M IN Location: [id number] HPI - General General Date of Admission: 09/18/24 Date of Service: 09/18/24 Chief Complaint: Shortness of breath and chest discomfort HPI Narrative JAYLEN MEJIA, is a 64 M who presented to [facility] ED on 09/18/2024 with chest pain and volume overload. [facility]. Has [facility] of [facility]G x 4 back in 2006. Nuclear stress test showed evidence of apical infarct, and echocardiogram showed worsening EF of 35 to 40%. However as patient was asymptomatic and has poorly controlled diabetes, recommendation was made for maximizing medical therapy on discharge. He presents today with 3-day history of worsening shortness of breath, chest discomfort and lower extremity swelling. Reports taking his home Lasix as prescribed and has had fairly good urine output recently. Sinus tachycardia to the 100s noted in the ED but otherwise hemodynamically stable on room air at rest. Chest x-ray was called is not acute but on my review appears to show mild volume overload in comparison to previous chest x-ray from 3 monthsago. BNP elevated at 2552. Troponin trend 64 > 62. No EKG changes noted. Patient was given doses of aspirin and nitro and reported improvement in his chest pain. Given these findings, hospitalist was then contacted for admission. I saw the patient at bedside in the ED. He was sitting up comfortably in bedside chair, conversing normally, in no acute distress. He was breathing comfortably on room air at rest. He did have +2-3 lower extremity pitting edemabilaterally and bibasilar crackles noted on lung exam. He denied any recent illnesses. Lives at home and takes care of his 8-year-old grandson, states he has had good functional status to this point. No other acute concerns at this time. Will be admitted for further management. [facility] Medical History GERD (gastroesophageal reflux disease) Anxiety High blood cholesterol Diabetes mellitus Emphysema, unspecified COPD (chronic obstructive pulmonary disease) Decreased left ventricular function Encounter for screening for malignant neoplasm of lung in current smoker with 30pack year history or greater Stenosis of right carotid artery Insulin dependent diabetes mellitus History of non-ST elevation myocardial infarction (NSTEMI) (06/11/18) Emphysema lung Asthma Type 2 diabetes mellitus Arthritis Pancreatitis GERD (gastroesophageal reflux disease) Nicotine dependence Atherosclerosis of coronary artery of [place] heart without angina pectoris Hyperlipidemia Essential (primary) hypertension Home Medications ?Medication ?Instructions ?Recorded ?Last Taken ?Type blood sugar diagnostic (FreeStyle #50 ea 04/02/21 Unkn own Rx Test strips) blood-glucose meter (FreeStyle #1 ea 04/02/21 Unknown Rx System Kit) lancets 28 gauge (FreeStyle #50 ea 04/02/21 Unknown Rx Lancets) pen needle, diabetic 31 gauge x #100 ea 04/02/21 Unkno wn Rx 06/19 (1st Tier Unifine Pentips Plus) nitroglycerin 0.4 mg sublingual 0.4 mg sublingual Q5M PRN 04/24/22 09/18/24 Rx tablet Cardiac/Chest Pain #20 tabs alfuzosin 10 mg tablet,extended 10 mg PO DAILY 3 Unknown History release 24 hr buspirone 5 mg tablet 5 mg PO BID anxiety #180 tab s 06/26/23 09/18/24 Rx Handicap placard #1 ea 07/22/23 Unknown Rx isosorbide mononitrate 30 mg See Rx Instructions .Rout e 07/22/23 Unknown Rx tablet,extended release 24 hr .COMPLEX #90 tabs pen needle, diabetic 31 gauge x #100 ea 10/28/23 Unkno wn Rx 08/19 (Comfort EZ Pen Frederica) evolocumab 140 mg/mL subcutaneous 140 mg subcut Q2W #6 mL 05/09/24 09/12/24 Rx pen injector (Wolf Bernal) albuterol sulfate 90 mcg/actuation 2 puff inhalation Q 4H PRN 06/17/24 09/17/24 History aerosol inhaler shortness of breath or wheez ing atenolol 50 mg tablet 50 mg PO DAILY 06/17/2409/04 History ezetimibe 10 mg tablet 10 mg PO DAILY 06/17/2409/04 History insulin glargine 100 unit/mL (3 20 unit subcut DAILY D iabetes 06/17/24 09/18/24 History mL) subcutaneous pen (Lantus Solostar U-100 Insulin) losartan 25 mg tablet 25 mg PO DAILY 06/17/2409/04 History metformin 1,000 mg tablet 1,000 mg PO BID 06/17/24 History mometasone-formoterol HFA 100 2 puff inhalation BID CO PD 06/18/24 09/18/24 History mcg-5 mcg/actuation aerosol inhaler (Dulera) aspirin 81 mg chewable tablet 81 mg PO BREAKFAST #0 ta bs 06/20/24 09/18/24 Rx furosemide 40 mg tablet 40 mg PO BIDLX #60 tabs 06/04 10/28 Unknown Rx nicotine 21 mg/24 hr daily 21 mg transdermal DAILY #30 ea 06/20/24 Unknown Rx transdermal patch spironolactone 25 mg tablet 25 mg PO DAILY #30 tabs Unknown Rx cilostazol 50 mg tablet 50 mg PO DAILY Cholesterol # 60 tabs 09/09/24 09/18/24 Rx Farxiga 10 mg tablet 10 mg PO DAILY #90 TABLETS 0 09/13/24 09/18/24 Rx (dapagliflozin propanediol) omeprazole 20 mg capsule,delayed 20 mg PO DAILY #90 ca ps 09/13/24 09/18/24 Rx release clopidogrel 75 mg tablet 75 mg PO DAILY 09/18/24/08/28 History fluticasone propionate 50 2 spray intranasal DAILY PRN nasal 09/18/24 Unknown History mcg/actuation nasal congestion spray,suspension (Flonase Allergy Relief) insulin lispro protamine-lispro 20 - 35 unit subcut BI D 09/18/24 09/17/24 History 100 unit/mL (50-50) subcutaneous pen (Humalog Mix 50-50 KwikPen) ondansetron 4 mg disintegrating 4 mg PO Q8H PRN Nausea 09/18/24 Unknown History tablet Allergy/AdvReac Type Severity Reaction Status Date / Time amoxicillin Allergy Angioedema Verified 09/18/24 09:57 lindane Allergy Rash Verified 09/18/24 09:57 Family History Father Asthma Alcoholism Arthritis Heart disease Hypertension High cholesterol CVA (cerebral vascular accident) Lung cancer Grandfather Myocardial infarction Surgical History S/P CABG x 4 History of hernia repair History of carotid endarterectomy (01/06/14) H/O coronary artery bypass surgery (2006) History of left heart catheterization (06/11/18) Social History Smoking Status: Heavy Smoker (>10/day) Tobacco: How many years used: 45 Electronic Cigarette Use: not used second hand exposure: Yes quit status: considering quitting alcohol intake: never substance use type: does not use caffeine: Yes Type: coffee Number of servings: 5 what type of physical activity do you participate in: none ROS Constitutional Constitutional: Denies chills, fatigue, fever(s) or weakness Eyes Eyes: Denies change in vision Cardiovascular Cardiovascular: Reports chest pain, dyspnea on exertion and edema; Denies lightheadedness or palpitations Respiratory/Chest Respiratory/Chest: Reports shortness of breath at rest and shortness of breath with exertion; Denies cough, productive cough or wheezing Gastrointestinal Gastrointestinal: Denies abdominal pain Genitourinary Genitourinary: Denies dysuria Musculoskeletal Musculoskeletal: Denies arthralgias or myalgias Vital Signs Vital Signs Vital Signs: 09/18/24 09:51 09/18/24 09:59 09/18/24 10:34 Temperature 96.9 F L Temperature Source Oral Pulse Rate 110 H Respiratory Rate 24 H Respiratory Effort Normal Non-Labored Respiratory Pattern Blood Pressure 97/82 H Blood Pressure Mean 87 Pulse Ox 95 Oxygen Delivery Method Room Air Room Air 09/18/24 10:44 09/18/24 10:54 09/18/24 12:05 Temperature Temperature Source Pulse Rate 101 H 97 98 Respiratory Rate 19 H 18 Respiratory Effort Respiratory Pattern Normal Blood Pressure 109/69 112/62 Blood Pressure Mean 78 Pulse Ox 93 Oxygen Delivery Method 09/18/24 12:07 09/18/24 13:00 09/18/24 13:33 Temperature Temperature Source Pulse Rate 97 101 H 95 Respiratory Rate 16 16 Respiratory Effort Respiratory Pattern Blood Pressure 131/85 H 136/74 H 118/77 Blood Pressure Mean 100 94 Pulse Ox 97 97 Oxygen Delivery Method Room Air Room Air 09/18/24 13:37 Temperature 98.2 F Temperature Source Pulse Rate 93 Respiratory Rate 15 Respiratory Effort Respiratory Pattern Blood Pressure 118/77 Blood Pressure Mean 90 Pulse Ox 98 Oxygen Delivery Method Weight Weight: 87.467 kg Body Mass Index (BMI) 26.9 Physical Exam Const alert, oriented x3, no apparent distress and average body habitus Constitutional Narrative: Upper middle-aged male, appears older than stated age, mildly fatigued appearingbut otherwise sitting up comfortably in bedside chair, conversing normally, in no acute distress. General Appearance: cooperative and comfortable HEENT normocephalic, head/scalp atraumatic, hearing grossly normal bilaterally, nasal mucous membranes and turbinates normal and moist oral mucous membranes Eyes PERRL, EOMs intact bilaterally and conjunctivae normal Neck full ROM Chest inspection of chest normal Resp normal respiratory effort and no use of accessory muscles Resp Narrative: Breathing comfortably on room air at rest. Bibasilar crackles noted but otherwise good air movement throughout with no wheezing noted. Cardio no murmurs and peripheral pulses 2+ throughout Cardio Narrative: Tachycardic, regular rhythm. GI normal to inspection, nondistended, normoactive bowel sounds, soft to palpation,non-tender and non-distended Back/Spine normal ROM Extremity Extremity Narrative: +2-3 lower extremity pitting edema noted. Venous stasis changes noted as well. Psych mental status grossly normal Results Lab / Micro Data 09/18/24 10:05 09/18/24 10:05 Labs: Laboratory Results - last 24 hr 09/18/24 10:05: WBC 7.6, RBC 4.64, Hgb 14.8, Hct 44.4, MCV 95.7 H, MCH 31.9, MCHC 33.3, RDW Std Deviation 45.1 H, RDW Coeff of Maycol 12.9, Plt Count 276, MPV 9.5, Immature Gran % (Auto) 0.300, Neut % (Auto) 61.9, Lymph % (Auto) 27.0, [place]% (Auto) 6.7, Eos % (Auto) 3.7, Baso % (Auto) 0.4, Absolute Neuts (auto) 4.7, Absolute Lymphs (auto) 2.05, Nucleated RBC % 0, Sodium 139, Potassium 5.0, Chloride 105, Carbon Dioxide 22.3, Anion Gap 12, BUN 17, Creatinine 1.01, Estim Creat Clear Calc 78.70, Est GFR (MDRD) Non-Af 83, BUN/Creatinine Ratio 16.5, Glucose 184 H, Calcium 9.3, Troponin T High Sens 64 H* D, NT pro BNP II 2552 H 09/18/24 12:01: Troponin T Hi Sens 2 Hr 62 H* Imaging Radiology Impression Chest X-Ray 09/18/24 10:26 IMPRESSION: No Acute Findings. Reading Location: [id number] Assessment & Plan Assessment/Plan (1) Acute on chronic HFrEF (heart failure with reduced ejection fraction): PLAN: Plan Patient is a 64-year-old male who presented to [facility] ED on 09/18/2024 with shortness of breath, chest discomfort and worsening lower extremity edema. 1. Acute HFrEF exacerbation with elevated troponins; history of CAD with CABG, hypertension, hyperlipidemia, moderate aortic valve stenosis, bilateral carotid artery stenosis, history of PAD with claudication ? Admit under inpatient status to PCU. Follows with outpatient cardiology and vascular surgery, see recent office notes for further details. Presented with chest pain and shortness of breath with worsening LE edema. Chest x-ray with mild worsening volume overload, BNP 2550. Troponin trend 64 > 62, EKG stable from previous. Had heart failure exacerbation in June; echo showed EF 35 to 40% with apical hypokinesis, and stress test showed evidence of distal anterior,apex and inferior apical infarct. Per cardiology then, given patient was asymptomatic and had poorly controlled diabetes, no need for intervention and plan was for maximizing medical therapy. Chest pain here did seem to improve with baby aspirin and nitroglycerin in the ED. I am concerned that patient may have ongoing ischemic disease leading to worsening heart failure but unclear if patient would be a candidate for further intervention. Repeat echo ordered; pending this result, can consider cardiology consult. Will treat with IV Lasix 40 mg twice daily for now, monitor daily BMP and urine output. Continue home aspirin, Plavix, atenolol, Zetia, Farxiga, Imdur and cilostazol. Is on a PCSK9 inhibitor every 2 weeks at home. Will hold home losartan and spironolactone fornow given mild hyperkalemia as noted below. 2. Poorly controlled type 2 diabetes mellitus ? Last A1c 12.5% on 08/02/2024 with A1c values consistently above 10% since [id number]. Repeat A1c ordered. Glucose 184 on admit. Patient notes that glucoses have been better controlled at home recently. Will treat with Lantus 20 units daily and Humalog 8 units plus sliding scale insulin with meals, adjust as needed. 3. Mild hyperkalemia ? Potassium 5.0 on admit. Giving IV Lasix as noted above and holding home losartan and spironolactone for now, low threshold to restart as needed. Monitor daily BMP. Chronic medical conditions: ? COPD: Stable on room air with no wheezing on exam, not in acute exacerbation. Continue home inhalers. ? GERD: Continue home PPI. ? Tobacco abuse: Continue home nicotine patch. ? Anxiety/depression: Continue home BuSpar and alfusozin. DVT prophylaxis: Lovenox CODE STATUS: Full code, verify Expected disposition: Home, TBD Total clinical time spent by myself addressing the patient's medical issues, reviewing all the data, and collaborating with patient's care team: 75 minutes. Charges/Coding Visit Charges Inpatient E&M: 57203 Init Hosp L3 09/18/24 1416 <Electronically signed by Clinton Soares DO> Cosigner Signature (if applicable): CC: Dr. Clinton Soares, DO; Dr. Xiang Rogers, DO~ Signed [facility] Work Phone: Hospital Discharge instructionsAdditional Instructions Thank you for trusting us with your care today! Please take prescribed Lasix. Please return to the emergency department if your symptoms change or worsen. Specifically develop worsening chest pain, leg swelling or shortness of breath. 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 Advance Directive(s) 01/20/2017 7:47 AM Advance Directive(s) 09/05/2015 4:07 PM Advance Directive Response Recorded Date/ Time Advance Directives No January 13, 2020 3:59pm Living Will No July 18, 2021 9:19pm Power of Equipment Application Specialist No July 18 9:19pm Advance Directive Response Recorded Date/ Time Advance Directives No January 13, 2020 3:59pm Living Will No December 08 022 11:25pm Power of Equipment Application Specialist No December 08, 2021 11:25pm Advance Directive Response Recorded Date/ Time Advance Directives No January 13, 2020 2:59pm Living Will No March 01 022 9:51pm Power of Equipment Application Specialist No March 01, 2022 9:51pm Advance Directive Response Recorded Date/ Time Advance Directives No January 13, 2020 2:59pm Living Will No April 18 1:40am Power of Equipment Application Specialist No April 18, 2022 1:40am Advance Directive Response Recorded Date/ Time Advance Directives No January 13, 2020 2:59pm Living Will No May 21, 023 1:36am Power of Equipment Application Specialist No May 21, 2022 1:36am Advance Directive Response Recorded Date/ Time Advance Directives No January 13, 2020 2:59pm Living Will No April 25 3:42pm Power of Equipment Application Specialist No April 25, 2023 3:42pm Advance Directive Response Recorded Date/ Time Advance Directives No January 13, 2020 2:59pm Living Will No May 24 12:27am Power of Equipment Application Specialist No May 24, 2023 12:27am Advance Directive Response Recorded Date/ Time Living Will No August 23, 2023 6 :30pm Do you have a Healthcare Power of Equipment Application Specialist? No August 23, 2023 6:30pm Advance Directives on File No William 2024 8:15am Living Will No April 20 8:15am Do you have a Healthcare Power of Equipment Application Specialist? No April 20, 2024 8:15am Advance Directives No April 20, 2024 8:15am Living Will No May 21 8:31pm Do you have a Healthcare Power of Equipment Application Specialist? No May 21, 2024 8:31pm Advance Directive Response Recorded Date/ Time Living Will No August 23, 2023 6 :30pm Do you have a Healthcare Power of Equipment Application Specialist? No August 23, 2023 6:30pm Living Will No May 21 8:31pm Do you have a Healthcare Power of Equipment Application Specialist? No May 21, 2024 8:31pm Living Will No June 18, 2024 6:24am Do you have a Healthcare Power of Equipment Application Specialist? No June 18, 2024 6:24am Do you have a Healthcare Power of Equipment Application Specialist? No July 29, 2024 8:08pm Advance Directives No April 20, 2024 8:15am Advance Directive Response Recorded Date/ Time Living Will No August 23, 2023 6 :30pm Do you have a Healthcare Power of Equipment Application Specialist? No August 23, 2023 6:30pm Do you have a Healthcare Power of Equipment Application Specialist? No September 18, 2024 10:00am Living Will No May 21 8:31pm Do you have a Healthcare Power of Equipment Application Specialist? No May 21, 2024 8:31pm Living Will No June 18, 2024 6:24am Do you have a Healthcare Power of Equipment Application Specialist? No June 18, 2024 6:24am Do you have a Healthcare Power of Equipment Application Specialist? No July 29, 2024 8:08pm Advance Directives No April 20, 2024 8:15am Advance Directive Response Recorded Date/ Time Living Will No August 23, 2023 6 :30pm Do you have a Healthcare Power of Equipment Application Specialist? No August 23, 2023 6:30pm Do you have a Healthcare Power of Equipment Application Specialist? No September 18, 2024 3:22pm Living Will No June 18, 2024 6:24am Do you have a Healthcare Power of Equipment Application Specialist? No June 18, 2024 6:24am Do you have a Healthcare Power of Equipment Application Specialist? No July 29, 2024 8:08pm Advance Directives No April 20, 2024 8:15am Advance Directive Response Recorded Date/ Time Living Will No August 23, 2023 6 :30pm Do you have a Healthcare Power of Equipment Application Specialist? No August 23, 2023 6:30pm Do you have a Healthcare Power of Equipment Application Specialist? No September 18, 2024 3:22pm Do you have a Healthcare Power of Equipment Application Specialist? No October 19, 2024 6:36pm Do you have a Healthcare Power of Equipment Application Specialist? No July 29, 2024 8:08pm Advance Directives No April 20, 2024 8:15am Advance Directive Response Recorded Date/ Time Living Will No August 23, 2023 6 :30pm Do you have a Healthcare Power of Equipment Application Specialist? No August 23, 2023 6:30pm Do you have a Healthcare Power of Equipment Application Specialist? No September 18, 2024 3:22pm Do you have a Healthcare Power of Equipment Application Specialist? No October 19, 2024 6:36pm Do you have a Healthcare Power of Equipment Application Specialist? Yes October 21, 2024 4:34pm Do you have a Healthcare Power of Equipment Application Specialist? No July 29, 2024 8:08pm Advance Directives [...] diabetes mellitus Stenosis of right carotid artery [id number] Nicotine dependence Chief Complaint 3 M FU Amb Documentation LOWER lung cancer screening SCREENING 3 M FU NSTEMI Reason for Visit Essential (primary) hypertension Insulin dependent diabetes mellitus Stenosis of right carotid artery [id number] Nicotine dependence Essential (primary) hypertension Hyperlipidemia Insulin dependent diabetes mellitus H/O coronary artery bypass surgery NSTEMI, initial episode of care Insulin dependent diabetes mellitus Nicotine dependence Chief Complaint LOWER lung cancer screening SCREENING 3 M FU NSTEMI NSTEMI NSTEMI NSTEMI [facility] FU- HEART ATTACK s/p [facility] ED NSTEMI 1-14 lower extrem Reason for Visit [id number] Nicotine dependence Essential (primary) hypertension Hyperlipidemia Insulin [...] 3 M FU NSTEMI NSTEMI NSTEMI NSTEMI [facility] FU- HEART ATTACK s/p [facility] ED NSTEMI 1-14 lower extrem EORDER Reason for Visit [id number] Nicotine dependence Essential (primary) hypertension Hyperlipidemia Insulin [...] hypertension Insulin dependent diabetes mellitus Nicotine dependence [id number] Nicotine dependence Chief Complaint Admit Date 3-4 M FU February 24, 2024 11:07am 3 M FU February 24, 2024 12:58pm PVD, OPEN WOUND March 09, 2024 9 :11am 4-5 WK FU March 22, 2024 10:47am Peripheral vascular disease, unspecified March 29, 2024 1:23pm 6 M FU April 01, 2024 9:49am Discuss CTA results April 08, 2024 12 :56pm Atherosclerosis of [place] arteries of ri ght leg wi April 20, 2024 6:47am Atherosclerosis of [place] arteries of ri ght leg wi April [...] February 24, 2024 11:07am Essential (primary) hypertension Novembe r 2023 12:58pm Insulin dependent diabetes mellitus Nove mber 2023 12:58pm Nicotine dependence February 24, 2024 12:58pm Fissure in skin of left foot February 232023 12:58pm Fissure in skin of right foot March 062023 10:47am PAD (peripheral artery disease) March 22, 2024 10:47am Cardiac murmur April 01, 2024 9:49am Essential (primary) hypertension Decee r 2023 9:49am Hyperlipidemia April 01, 2024 9:49am Nicotine dependence April 01, 2024 9:49am Stenosis of right carotid artery Decee r 2023 9:49am H/O coronary artery bypass surgery Decem jon 2023 9:49am Atherosclerosis of right lower [...] 17, 2024 12:40pm Acute hypoxemic respiratory failure [facility] 2024 4:45am Acute respiratory distress June 18, [...] Nicotine dependence August 02, 2024 11: 21am Chief Complaint Admit Date COUGH May 21, 2024 5:25pm AFTERCARE June [...] ARTERY DISEASE September 08, 2024 10 :08am HFrEF EXACERBATION September 18, 2024 1:39 pm Reason for Visit Admit Date Acute hypoxemic respiratory failure Get 2024 4:45am Acute respiratory distress June 18, [...] Nicotine dependence August 02, 2024 11: 21am Acute on chronic HFrEF (hear t failure with reduced ejection fraction) September 18, 2024 1:39pm Chief Complaint Admit Date AFTERCARE June 13, 2024 1:4 2pm ABN [...] [place] PD June 20, 2024 10:58am S/P [facility] 06/21July 12, 2024 9:51 am Discuss Results July 14, 2024 9:5 4am chest pain July 29, 2024 7:5 8pm 3 M FU August 02, 2024 11: 21am CAROTID ARTERY DISEASE September 08, 2024 10 :08am HFrEF EXACERBATION September 18, 2024 1:39 pm HFrEF EXACERBATION September 19, 2024 7:00 pm HFrEF EXACERBATION September 20, 2024 7:10 pm Chief Complaint Admit Date AFTERCARE June 13, 2024 1:4 2pm ABN [...] ARTERY DISEASE September 08, 2024 10 :08am HFrEF EXACERBATION September 18, 2024 1:39 pm HFrEF EXACERBATION September 19, 2024 7:00 pm HFrEF EXACERBATION September 20, 2024 7:10 pm HFrEF EXACERBATION September 21, 2024 4:22 pm 6 M FU September 27, 2024 9:55 am Reason for Visit Admit Date Acute hypoxemic respiratory failure [facility] 2024 4:45am Acute respiratory distress June 18, 2 025 4:45am Bilateral pleural effusion June 18 2 025 4:45am Bronchitis, purulent, chronic June [...] Nicotine dependence August 02, 2024 11: 21am Acute on chronic HFrEF (hear t failure with reduced ejection fraction) September 18, 2024 1:39pm Aortic valve stenosis September 27, 2024 9: 55am LV dysfunction September 27, 2024 9:55 am Essential (primary) hypertension September 272024 9:55am Hyperlipidemia September 27, 2024 9:55 am Nicotine dependence September 27, 2024 9:55 am Stenosis of right carotid artery September 272024 9:55am H/O coronary artery bypass surgery September 27, 2024 9:55am Chief Complaint Admit Date S/P [facility] 06/21July 12, 2024 9:51 am Discuss Results July 14, 2024 9:5 4am chest pain July 29, 2024 7:5 8pm 3 M FU August 02, 2024 11: 21am CAROTID ARTERY DISEASE September 08, 2024 10 :08am HFrEF EXACERBATION September 18, 2024 1:39 pm HFrEF EXACERBATION September 19, 2024 7:00 pm HFrEF EXACERBATION September 20, 2024 7:10 pm HFrEF EXACERBATION September 21, 2024 4:22 pm 6 M FU September 27, 2024 9:55 am CHEST PAIN October 19, 2024 6:19 pm Reason for Visit Admit Date Aortic valve stenosis July 12, 2024 9: [...] Nicotine dependence August 02, 2024 11: 21am Acute on chronic HFrEF (hear t failure with reduced ejection fraction) September 18, 2024 1:39pm Aortic valve stenosis September 27, 2024 9: 55am LV dysfunction September 27, 2024 9:55 am Essential (primary) hypertension September 272024 9:55am Hyperlipidemia September 27, 2024 9:55 am Nicotine dependence September 27, 2024 9:55 am Stenosis of right carotid artery September 272024 9:55am H/O coronary artery bypass surgery September 27, 2024 9:55am Chief Complaint Admit Date S/P [facility] 06/21July 12, 2024 9:51 am Discuss Results July 14, 2024 9:5 4am chest pain July 29, 2024 7:5 8pm 3 M FU August 02, 2024 11: 21am CAROTID ARTERY DISEASE September 08, 2024 10 :08am HFrEF EXACERBATION September 18, 2024 1:39 pm HFrEF EXACERBATION September 19, 2024 7:00 pm HFrEF EXACERBATION September 20, 2024 7:10 pm HFrEF EXACERBATION September 21, 2024 4:22 pm 6 M FU September 27, 2024 9:55 am CHEST PAIN October 19, 2024 6:19 pm arm pain October 21, 2024 4:25 pm Family History No Family History Records Found [...] Yamilka Parekh MD [address] [place] [address] Ct Imaging Referral ID Status Reason Start Date Expiration Date Visits Requested Visits Authorized [id number] Additional Clinical Info Needed Auto-Generat ed Referral 01/06/2022 02/05/2023 1 1 Specialty Diagnoses / Procedures Referred By Contac t Referred To Contact CT IMAGING Diagnoses Left groin pain Procedures CT PELVIS WO IVCON CT PELVIS W/O CONTRAST MATERIAL Yamilka Parekh MD [address] [place] [address] [place] [id number] Referral ID Status Reason Start Date Expiration Date V isits Requested Visits Authorized [id number] Closed Auto-Generate d Referral 01/06/2022 03/16/2022 2 2 Summary Purpose Additional Source Comments Source Comments (unrecognize d section and content) In the event this informatio n is protected by the Federal Confidentiality of Alcohol and Drug Abuse Patient Records regulations: The Federal rules restrict any use of the information to criminally investigate or prosecute any alcohol or drug abuse patient.[facility] the event this information is protected by the Federal Confidentiality of Alcohol and Drug Abuse Patient Records regulations: The Federal rules restrict any use of the information to criminally investigate or prosecute any alcohol or drug abuse patient.[facility] the event this information is protected by the Federal Confidentiality of Alcohol and Drug Abuse Patient Records regulations: The Federal rules restrict any use of the information to criminally investigate or prosecute any alcohol or drug abuse patient.[facility] the event this information is protected by the Federal Confidentiality of Alcohol and Drug Abuse Patient Records regulations: The Federal rules restrict any use of the information to criminally investigate or prosecute any alcohol or drug abuse patient.[facility] the event this information is protected by the Federal Confidentiality of Alcohol and Drug Abuse Patient Records regulations: The Federal rules restrict any use of the information to criminally investigate or prosecute any alcohol or drug abuse patient.[facility] the event this information is protected by the Federal Confidentiality of Alcohol and Drug Abuse Patient Records regulations: The Federal rules restrict any use of the information to criminally investigate or prosecute any alcohol or drug abuse patient.[facility] Hospital[facility] the event this information is protected by the Federal Confidentiality of Alcohol and Drug Abuse Patient Records regulations: The Federal rules restrict any use of the information to criminally investigate or prosecute any alcohol or drug abuse patient.[facility] Reason for Visit (unrecogniz ed section [...] Yamilka Parekh MD [address] [place] [address] [place] [id number] Referral ID Status Reason Start Date Expiration Date V isits Requested Visits Authorized [id number] Closed Auto-Generate d Referral 01/06/2022 03/16/2022 2 [...] Care Teams (unrecognized sec tion and content) Parking Enforcement Manager Relationship Specialty Start Date End Date Xiang Rogers DO [address] [place] [address] PCP - General Family Medicine 01/03/22 Parking Enforcement Manager Relationship Specialty Start Date End Date Xiang Rogers DO [address] [place], [place] [id number] PCP - General Family Medicine 01/03/22 Parking Enforcement Manager Relationship Specialty Start Date End Date Xiang Rogers DO [address] [place] [address] PCP - General Family Medicine 01/03/22 Team Status: Active Member Role Status Dates Dr. Xiang Rogers , DO Family Provider Active Dr. Xiang Rogers , DO Primary Care Provider Active Team Status: Inactive Member Role Status Dates Dr. Xiang Rogers , DO Primary Care Pr ovider, Attending Provider, Referring Provider Active Team Status: Inactive Member Role Status Dates Dr. Xiang Rogers , DO Primary Care Provider Active Kimberli Mora HVAC DESIGN MECHANICAL ENGINEER, HVAC DESIGN MECHANICAL ENGINEER-C Attending Provider, Referring Provider Active Team Status: [...] Provider, Referr ing Provider Active Dean Pena HVAC DESIGN MECHANICAL ENGINEER, HVAC DESIGN MECHANICAL ENGINEER-C Attending Provider Active Team Status: Inactive Member [...] Xiang Rogers DO Primary Care Provider Active Dean Pena HVAC DESIGN MECHANICAL ENGINEER, HVAC DESIGN MECHANICAL ENGINEER-C Attending Provider, Referring Pro vider Active Parking Enforcement Manager Relationship Specialty Start Date End Date Xiang Rogers DO [address] [place] [address] PCP - [facility] Medicine 01/03/22 Parking Enforcement Manager Relationship Specialty Start Date End Date Xiang Rogers DO [address] [place] [address] PCP - [facility] Medicine 01/03/22 Team Status: Inactive Member Role Status Dates Dr. Xiang Rogers DO Primary Care Provider Active Dr. Chaya Knight MD Emergency Provider Active Team Status: Inactive Member Role Status Dates Dr. Xiang Rogers DO Primary Care Provider Active Dr. Saúl Aguilar , DO Emergency Provider Active Team Status: Inactive Member Role Status Dates Dr. Xiang Rogers DO Primary Care Provider, Referr ing Provider Active Kimberli Mora HVAC DESIGN MECHANICAL ENGINEER, HVAC DESIGN MECHANICAL ENGINEER-C Attending Provider Active Team Status: Inactive Member Role Status Dates Dr. Xiang Rogers DO Primary Care Provider Active Dr. Saúl Aguilar , DO Attending Provider, Emergency P rovider Active Parking Enforcement Manager Relationship Specialty Start Date End Date Xiang Rogers DO [address] [place] [address] PCP - [facility] Medicine 01/03/22 Team Status: Active Member Role [...] End: March 09, 2024 Dr. Jose Small , RAZA Attending Provider Active Start: March 09, 2024 [...] 01, 2024 End: April 01, 2024 Magaly DEVINE, PA Attending Provider Active Start: April 01, [...] 18, 2024 End: June 20, 2024 Dean Pena HVAC DESIGN MECHANICAL ENGINEER, HVAC DESIGN MECHANICAL ENGINEER-C Other Provider Active Start : June 18, 2024 End: June 20, 2024 Magaly DEVINE, PA Other Provider Active Start: June 18, 2024 End: June 20, 2024 NILSON Petersen Other Provider Active Start: June 18, 2024 End: June 20, 2024 Dr. Triston Muro MD Other Provider Active Start: June 18, 2024 End: June 20, 2024 Dr. Donna Wolff MD Other Provider Active Star t: June 18, 2024 End: June 20, 2024 Dr. Seth Carrington DO Attending Provider Active Start: June 18, [...] Active Start: June 19, 2024 Dean Pena HVAC DESIGN MECHANICAL ENGINEER, HVAC DESIGN MECHANICAL ENGINEER-C Other Provider Active Start : June 19, [...] Active Start: June 19, 2024 Dean Pena HVAC DESIGN MECHANICAL ENGINEER, HVAC DESIGN MECHANICAL ENGINEER-C Other Provider Active Start : June 19, [...] Start: June 20, 2024 Dr. Steve Esteban , Other Provider Active Start: June 20, 2024 [...] Active Start: June 20, 2024 Dean Pena HVAC DESIGN MECHANICAL ENGINEER, HVAC DESIGN MECHANICAL ENGINEER-C Other Provider Active Start : June 20, 2024 Magaly DEVINE, PA Other Provider Active Start: June 20, 2024 NILSON Petersen Other Provider Active Start: June 20, 2024 Dr. Triston Muro MD Other Provider Active Start: June 20, 2024 Dr. Seth Carrington DO Other Provider Active S tart: June [...] Active Start: June 20, 2024 Dean Pena HVAC DESIGN MECHANICAL ENGINEER, HVAC DESIGN MECHANICAL ENGINEER-C Other Provider Active Start : June 20, 2024 Magaly DEVINE, PA Other Provider Active Start: June 20, 2024 NILSON Petersen Other Provider Active Start: June 20, 2024 Dr. Triston Muro MD Other Provider Active Start: June 20, 2024 Dr. Seth Carrington DO Attending Provider Active Start: June 20, 2024 Dr. Seth Carrington DO Other Provider Active S tart: June 20, 2024 Dr. Donna Wolff MD Other Provider Active Star t: June 20, 2024 Team Status: Inactive Member Role Status Dates Dr. Xiang Rogers DO Primary Care Provider Active Start: July 12, 2024 End: July 12, 2024 Dr. Xiang Rogers DO Referring Provider Active Start: July 12, 2024 End: July 12, 2024 Ronit Galvez HVAC DESIGN MECHANICAL ENGINEER, HVAC DESIGN MECHANICAL ENGINEER-C Attending Provider Active Start: July 12, 2024 [...] End: July 29, 2024 Dr. Lawson Castellon , DO Emergency Provider Active Start : July [...] Provider Active S tart: September 08, 2024 Team Status: Active Member Role Status Dates Dr. Xiang Rogers DO Primary Care Provider Active Start: September 18, 2024 Dr. Saúl Aguilar DO Emergency Provider Active Start: September 18, 2024 Dr. Clinton Soares DO Admit Provider Active Start: September 18, 2024 Dr. Clinton Soares DO Attending Provider Active Start: September 18, 2024 Dr. Clinton Soares DO Other Provider Active Start: September 18, 2024 Team Status: Active Member Role Status Dates Dr. Xiang Rogers DO Primary Care Provider Active Start: September 08, 2024 Dr. Saúl Flowers MD Attending Provider Active S tart: September 08, 2024 NILSON Heck Referring Provider Active Star t: September 08, 2024 Team Status: Inactive Member Role Status Dates Dr. Xiang Rogers DO Primary Care Provider Active Start: September 18, 2024 End: September 21, 2024 Dr. Saúl Aguilar , DO Emergency Provider Active Start: September 18, 2024 End: September 21, 2024 Dr. Clinton Soares , DO Admit Provider Active Start: September 18, 2024 End: September 21, 2024 Dr. Clinton Soares , DO Other Provider Active Start: September 18, 2024 End: September 21, 2024 Dr. Donna Wolff MD Attending Provider Active Start: September 18, 2024 End: September 21, 2024 Dr. Seth Carrington , DO Other Provider Active S tart: September 18, 2024 End: September 21, 2024 Team Status: Active Member Role Status Dates Dr. Xiang Rogers , DO Primary Care Provider Active Start: September 19, 2024 Dr. Calos Quinn MD Attending Provider Active S tart: September 19, 2024 Team Status: Active Member Role Status Dates Dr. Xiang Rogers , DO Primary Care Provider Active Start: September 19, 2024 Dr. Saúl Aguilar , DO Emergency Provider Active Start: September 19, 2024 Dr. Clinton Soares , DO Admit Provider Active Start: September 19, 2024 Dr. Clinton Soares , DO Other Provider Active Start: September 19, 2024 Dr. Seth Carrington , DO Attending Provider Active Start: September 19, 2024 Dr. Seth Carrington , DO Other Provider Active S tart: September 19, 2024 Team Status: Active Member Role Status Dates Dr. Xiang Rogers , DO Primary Care Provider Active Start: September 20, 2024 Dr. Saúl Aguilar , DO Emergency Provider Active Start: September 20, 2024 Dr. Clinton Soares , DO Admit Provider Active Start: September 20, 2024 Dr. Clinton Soares , DO Other Provider Active Start: September 20, 2024 Dr. Seth Carrington , DO Attending Provider Active Start: September 20, 2024 Dr. Seth Carrington , DO Other Provider Active S tart: September 20, 2024 Team Status: Active Member Role Status Dates Dr. Xiang Rogers , DO Primary Care Provider Active Start: September 21, 2024 Dr. Saúl Aguilar , DO Emergency Provider Active Start: September 21, 2024 Dr. Clinton Soares , DO Admit Provider Active Start: September 21, 2024 Dr. Clinton Soares , DO Other Provider Active Start: September 21, 2024 Dr. Donna Wolff MD Attending Provider Active Start: September 21, 2024 Dr. Donna Wolff MD Other Provider Active Star t: September 21, 2024 Dr. Seth Carrington DO Other Provider Active S tart: September 21, 2024 Team Status: Inactive Member Role Status Dates Dr. Xiang Rogers DO Primary Care Provider Active Start: September 27, 2024 End: September 27, 2024 Dr. Xiang Rogers DO Referring Provider Active Start: September 27, 2024 End: September 27, 2024 Magaly DEVINE, PA Attending Provider Active Start: September 27, 2024 End: September 27, 2024 Team Status: Active Member Role/Relationship Status Dates Dr. Xiang Rogers DO Primary Care Provider Active Team Status: Inactive Member Role/Relationship Status Dates Dr. Xiang Rogers DO Primary Care Provider Active Start: July 12, 2024 End: July 12, 2024 Dr. Xiang Rogers DO Referring Provider Active Start: July 12, 2024 End: July 12, 2024 Ronit Galvez HVAC DESIGN MECHANICAL ENGINEER, HVAC DESIGN MECHANICAL ENGINEER-C Attending Provider Active Start: July 12, 2024 End: July 12, 2024 Team Status: Inactive Member Role/Relationship Status Dates Dr. Xiang Rogers DO Primary Care Provider Active Start: July 14, 2024 End: July 14, 2024 Dr. Xiang Rogers DO Referring Provider Active Start: July 14, 2024 End: July 14, 2024 NILSON Heck Attending Provider Active Star t: July 14, 2024 End: July 14, 2024 Team Status: Inactive Member Role/Relationship Status Dates Dr. Xiang Rogers DO Primary Care Provider Active Start: July 29, 2024 End: July 29, 2024 Dr. Lawson Castellon DO Attending Provider Active Start : July 29, 2024 End: July 29, 2024 Dr. Lawson Castellon DO Emergency Provider Active Start : July 29, 2024 End: July 29, 2024 Team Status: Inactive Member Role/Relationship Status Dates Dr. Xiang Rogers DO Primary Care Provider Active Start: August 02, 2024 End: August 02, 2024 Dr. Xiang Rogers DO Attending Provider Active Start: August 02, 2024 End: August 02, 2024 Dr. Xiang Rogers DO Referring Provider Active Start: August 02, 2024 End: August 02, 2024 Team Status: Inactive Member Role/Relationship Status Dates Dr. Xiang Rogers DO Primary Care Provider Active Start: September 08, 2024 End: September 08, 2024 NILSON Heck Attending Provider Active Star t: September 08, 2024 End: September 08, 2024 NILSON Heck Referring Provider Active Star t: September 08, 2024 End: September 08, 2024 Team Status: Active Member Role/Relationship Status Dates Dr. Xiang Rogers DO Primary Care Provider Active Start: September 08, 2024 Dr. Saúl Flowers MD Attending Provider Active S tart: September 08, 2024 NILSON Heck Referring Provider Active Star t: September 08, 2024 Team Status: Inactive Member Role/Relationship Status Dates Dr. Xiang Rogers DO Primary Care Provider Active Start: September 18, 2024 End: September 21, 2024 Dr. Saúl Aguilar , Emergency Provider Active Start: September 18, 2024 End: September 21, 2024 Dr. Clinton Soares , Admit Provider Active Start: September 18, 2024 End: September 21, 2024 Dr. Clinton Soares , Other Provider Active Start: September 18, 2024 End: September 21, 2024 Dr. Seth Carrington , DO Other Provider Active S tart: September 18, 2024 End: September 21, 2024 Dr. Donna Wolff MD Attending Provider Active Start: September 18, 2024 End: September 21, 2024 Team Status: Active Member Role/Relationship Status Dates Dr. Xiang Rogers DO Primary Care Provider Active Start: September 19, 2024 Dr. Calos Quinn MD Attending Provider Active S tart: September 19, 2024 Team Status: Active Member Role/Relationship Status Dates Dr. Xiang Rogers DO Primary Care Provider Active Start: September 19, 2024 Dr. Saúl Aguilar DO Emergency Provider Active Start: September 19, 2024 Dr. Clinton Soares , DO Admit Provider Active Start: September 19, 2024 Dr. Clinton Soares , DO Other Provider Active Start: September 19, 2024 Dr. Seth Carrington , DO Attending Provider Active Start: September 19, 2024 Dr. Seth Carrington , DO Other Provider Active S tart: September 19, 2024 Team Status: Active Member Role/Relationship Status Dates Dr. Xiang Rogers , DO Primary Care Provider Active Start: September 20, 2024 Dr. Saúl Aguilar , DO Emergency Provider Active Start: September 20, 2024 Dr. Clinton Soares , DO Admit Provider Active Start: September 20, 2024 Dr. Clinton Soares , DO Other Provider Active Start: September 20, 2024 Dr. Seth Carrington , DO Attending Provider Active Start: September 20, 2024 Dr. Seth Carrington , DO Other Provider Active S tart: September 20, 2024 Team Status: Active Member Role/Relationship Status Dates Dr. Xiang Rogers , DO Primary Care Provider Active Start: September 21, 2024 Dr. Saúl Aguilar , DO Emergency Provider Active Start: September 21, 2024 Dr. Clinton Soares , DO Admit Provider Active Start: September 21, 2024 Dr. Clinton Soares , DO Other Provider Active Start: September 21, 2024 Dr. Donna Wolff MD Attending Provider Active Start: September 21, 2024 Dr. Donna Wolff MD Other Provider Active Star t: September 21, 2024 Dr. Seth Carrington , DO Other Provider Active S tart: September 21, 2024 Team Status: Inactive Member Role/Relationship Status Dates Dr. Xiang Rogers DO Primary Care Provider Active Start: September 27, 2024 End: September 27, 2024 Dr. Xiang Rogers , Referring Provider Active Start: September 27, 2024 End: September 27, 2024 Magaly Abdi PA, PA Attending Provider Active Start: September 27, 2024 End: September 27, 2024 Team Status: Inactive Member Role/Relationship Status Dates Dr. Xiang Rogers DO Primary Care Provider Active Start: October 19, 2024 End: October 19, 2024 Dr. Valentín Miller , DO Emergency Provider Active Start: October 19, 2024 End: October 19, 2024 Team Status: Inactive Member Role/Relationship Status Dates Dr. Xiang Rogers DO Primary Care Provider Active Start: October 21, 2024 End: October 21, 2024 Dr. Severo Zeng , DO Emergency Provider Active S tart: October 21, 2024 End: October 21, 2024 (unrecognized sect ion and content) No Status Records FoundNo Status Records Found INFORMATION SOURCE (unrecogn ized section and content) DATE CREATED AUTHOR 02/05/2022 [facility] DATE CREATED AUTHOR AUTHOR'S ORGANIZ ATION 10/22/2024 [facility] FOR RECORDS PERTAINING TO PATIENTS WHO [...] BE BASED ON THE PRIMARY CLINICAL RECORDS. [employer] provides no warranty or guarantee of the accuracy or completeness of information in this document.
[2024-10-23 18:50] LABS: Hematocrit 42.4 % (40-54); Hemoglobin 14.0 g/dL (13.0-16.5); Immature Granulocytes Count 0.010 X10^3/uL (0.0-0.0); Mean Corp Hgb Conc 33.0 g/dL (32-36); Mean Corpuscular Volume 93.2 fL (80-94); Mean Platelet Vol. 10.0 fl (6.2-12.0); NRBC Flagged by Analyzer 0 % (0-5); Platelet Count 255 K/mm3 (150-450); RBC Distribution Width CV 12.8 % (11.6-14.6); RBC Distribution Width SD 43.9 fl (35.1-43.9); Red Blood Count 4.55 M/mm3 (4.6-6.2); White Blood Count 6.9 K/mm3 (4.4-11.0)
[2024-10-23 18:55] VITALS: BP 113/64; PULSE 89; RESP 18; TEMP 36.6; O2SAT 96
[2024-10-23 19:00] VITALS: BP 113/64; PULSE 89; RESP 18; TEMP 36.6; O2SAT 96
[2024-10-23] MEDS: Clindamycin 900 MG/50 ML BAG 75 MG IV (19:00)
[2024-10-23 19:03] VITALS: BMI 30.2
[2024-10-23 19:49] LABS: Anion Gap 12 (5-15); BUN 18 mg/dL (4-19); BUN/Creat Ratio 18.2 RATIO (10-20); Calcium,Total 9.3 mg/dL (7.6-11.0); Carbon Dioxide 26.0 mmol/L (21.0-32.0); Chloride 100 mmol/L (98-108); Estimated Creatinine Clearance 89.11 ml/min (50-250); Glucose 256 mg/dL (70-99); Potassium 3.9 mmol/L (3.3-5.1)
[2024-10-23 20:00] VITALS: BP 103/73; PULSE 94; RESP 18; TEMP 36.6; O2SAT 96
[2024-10-23 20:45] VITALS: BP 103/73; PULSE 93; RESP 18; TEMP 36.6; O2SAT 94
== END 2024-10-23 21:01 | disposition home or self-care (01) ==
PROVIDERS: Emergency Provider Emergency Medicine; PCP Family Medicine; Referring Provider Emergency Medicine; Visit Provider Emergency Medicine
DX: L03.115 Cellulitis of right lower limb (principal); I11.0 Hypertensive heart disease with heart failure; I50.9 Heart failure, unspecified; J44.9 Chronic obstructive pulmonary disease, unspecified; E11.9 Type 2 diabetes mellitus without complications; Z79.4 Long term (current) use of insulin; E78.00 Pure hypercholesterolemia, unspecified; I25.10 Atherosclerotic heart disease of native coronary artery without angina pectoris; I25.2 Old myocardial infarction; Z79.82 Long term (current) use of aspirin; Z79.899 Other long term (current) drug therapy; K21.9 Gastro-esophageal reflux disease without esophagitis; Z79.51 Long term (current) use of inhaled steroids; Z95.1 Presence of aortocoronary bypass graft; F17.200 Nicotine dependence, unspecified, uncomplicated; R60.9 Edema, unspecified; L03.116 Cellulitis of left lower limb
CPT/HCPCS: 80048; 85025; 96365; 99283; A4216

== ENCOUNTER 2024-10-26 23:27 | Emergency (ER) | payer MEDICAID, SELFPAY ==
[2024-10-26 23:29] VITALS: BP 114/67; PULSE 99; RESP 20; TEMP 36.4; O2SAT 97
[2024-10-26 23:38] VITALS: BMI 28.4
--- NOTE | 2024-10-26 23:59 | RAD_ITS ---
PROCEDURE: CHEST PA AND LATERAL 10/27/2024 REASON FOR EXAM: FATIGUE TECHNIQUE: CHEST PA AND LATERAL COMPARISON: 10/19/2024 FINDINGS: Normal heart size. Status post CABG. Small bilateral effusions. Mildly under aerated lung bases. Diffuse, basilar predominant interstitial prominence, likely chronic. No localized consolidation or pneumothorax. RAD/Chest PA and Lateral IMPRESSION: Small bilateral effusions, under aerated lung bases. Reading Location: [facility]
--- OUTSIDE RECORDS SUMMARY | 2024-10-27 00:04 | XMS RPT_ITS | CCD ---
Author Organization [facility] [employer]iniSyak Care Team Providers Care Head Custodian Name Role Phone Unavailable Primary Care Provider Unavailmague e Dr. Xiang Rogers Primary Care Provider [phone] Dr. Xinag Rogers Attending Provider [phone] Dr. Xiang Rogers [...] [phone] Galdino Baird Attending Provider Unavailable Abby DEFENSE ATTORNEY, DEFENSE ATTORNEY-C Kimberli Attending Provider Abby DEFENSE ATTORNEY, DEFENSE ATTORNEY-C Kimberli Referring Provider Dr. Xiang Rogers Primary Care Provider [phone] Dr. Xiang Rogers Attending Provider [phone] Dr. Xiang Rogers Referring Provider [phone] Dr. Maribell Moura Emergency Provider Elizabeth, Dr. Flori Jones Admit Provider Elizabeth, Dr. Flori Jones Other Provider Fareed, Dr. Blackwood Other Provider Dr. Steve Fields Attending Provider Unavailable Diamond, Dr. Wilson Other Provider Unavailable Dr. Calos Quinn Attending Provider Roof DEFENSE ATTORNEY, DEFENSE ATTORNEY-C Dean Carson Attending Provider Xiang Rogers DO Primary Care Provider Dr. Xiang Rogers Primary Care Provider Dr. Xiang Rogers Attending Provider Dr. Xiang Rogers Referring Provider Roof DEFENSE ATTORNEY, DEFENSE ATTORNEY-C Dean Carson Attending Provider Dr. Xiang Rogers Primary Care Provider Dr. Xiang Rogers Referring Provider Dr. Xiang Rogers Attending Provider Dr. Xiang Rogers Primary Care Provider Dr. Xiang Rogers Referring Provider [facility] DEFENSE ATTORNEY, DEFENSE ATTORNEY-C Kimberli Attending Provider Xiang Rogers DO Primary [...] Laurita WESTBROOK, Dr. Lyn Other Provider Jean DEFENSE ATTORNEY-C, Dean Carson Other Provider Magaly Denise Other [...] Provider Dr. Clinton Soares DO Admit Provider Dr. Clinton Soares DO Attending Provider Dr. [...] Thompson Other Provider Magaly Denise Attending Provider Paul SANDRA, Dr. Laura Emergency Provider [phone] Severo Zeng DO Emergency Provider Patricio WESTBROOK, Dr. Beltran Referring Provider Patricio WESTBROOK, Dr. Beltran Emergency Provider Clinton Soares Consulting Unavailable Clinton Soares Admitting Unavailable Donna Wolff Attending Unavailable Brown, Xiang R Primary Care Unavailable Seth Carrington Consulting Unavailable Brown, Xiang R Attending Unavailable Brown, Xiang R Referring Unavailable Brown, Xiang R Primary Care Unavailable Steve Esteban Consulting Unavailable Steve Esteban Admitting Unavailable Seth Carrington Attending Unavailable Brown, Xiang R Primary Care Unavailable Mary Kay Nagel Consulting Unavailable Otilia Chaudhary Consulting Unavailable Merced Guerrier Consulting Unavailable George Ball Consulting Unavailable Calos Quinn Consulting Unavailable Buck Trevino Consulting Unavailable Jose Garcia Consulting Unavailable Alexandru Mckeon Consulting UnavailFelicity Marienivasa Consulting Unavailable Renetta Shayatore Consulting Unavailable Dean Pena NP Consulting Unavailable Magaly Denise Consulting Unavail able Avery Valderrama Consulting Unavailable Triston Muro Consulting Unavailable Donna Wolff Consulting Unavailable Seth Carrington Consulting Unavailable Severo Zeng Attending Unavailable Brown, Xiang R Primary Care Unavailable Brown, Xiang R Referring Unavailable Lubna Manley Attending Unavailable Brown, Xiang R Primary Care Unavailable Brown, Xiang R Referring Unavailable Brown, Xiang R Primary Care Unavailable Lubna Manley Attending Unavailable Lenny DEFENSE ATTORNEY, Ronit Attending Unavailable Lenny DEFENSE ATTORNEY, Ronit Referring Unavailable Brown, Xiang R Primary Care Unavailable Steve Esteban Admitting Unavailable Steve Esteban Consulting Unavailable Seth Carrington Attending Unavailable Brown, Xiang R Primary Care Unavailable Amro, Ahmed Consulting Unavailable Otilia Chaudhary Consulting Unavailable Fareed, Merced Consulting Unavailable George Ball Consulting Unavailable Kai, Calos Consulting Unavailable Buck Trevino Consulting Unavailable Jose Garcia Consulting Unavailable Alexandru Mckeon Consulting UnavailAbisai Marie Consulting Unavailable Riki Shay Consulting Unavailable Dean Pena NP Consulting Unavailable Magaly Denise Consulting Unavail able Avery Valderrama Consulting Unavailable Triston Muro Consulting Unavailable Donna Wolff Consulting Unavailable Saúl Aguilar Attending Unavailable Brown, Xiang R Primary Care Unavailable Lawson Castellon Attending Unavailable Brown, Xiang R Primary Care Unavailable Lubna Manley Attending Unavailable Manley, Lubna Referring Unavailable Brown, Xiang R Primary Care Unavailable Vineet, Lubna Attending Unavailable Manley, Lubna Referring Unavailable Brown, Xiang R Primary Care Unavailable Lenny DEFENSE ATTORNEY, Ronit Referring Unavailable Lenny DEFENSE ATTORNEY, Ronit Attending Unavailable Brown, Xiang R Primary Care Unavailable Jose Small Referring Unavailable Jose Small Attending Unavailable Brown, Xiang R Primary Care Unavailable Brown, Xiang R Primary Care Unavailable Abby DEFENSE ATTORNEY, Kimberli Referring Unavailable Abby DEFENSE ATTORNEY, Kimberli Attending Unavailable Brown, Xiang R Primary Care Unavailable Saúl Flowers Attending Unavailable Brown, Xiang R Referring Unavailable Brown, Xiang R Attending Unavailable Brown, Xinag R Primary Care Unavailable Alexandru Mckeon Attending Unavailmague diaz Brown, Xiang R Primary Care Unavailable Lionel, Saúl Consulting Unavailable Saúl Flowers Attending Unavailable Lionel, Saúl Referring Unavailable Brown, Xiang R Primary Care Unavailable Trinidad DEVINE, Magaly Nelson Attending Unavail able Kai, Calos Consulting Unavailable Brown, Xiang R Primary Care Unavailable Valentín Miller Attending Unavailable Brown, Xiang R Primary Care Unavailable Brown, Xiang R Primary Care Unavailable Damon Quinnl Attending Unavailable Clinton Soares Admitting Unavailable Clinton Soares Consulting Unavailable Seth Carrington Attending Unavailable Brown, Xiang R Primary Care Unavailable Seth Carrington Consulting Unavailable Donna Wolff Attending Unavailable Donna Wolff Consulting Unavailable Clinton Soares Attending Unavailable Steve Esteban Attending Unavailable Brown, Xiang R Referring Unavailable [...] Care Unavailable Magaly Denise Attending Unavail able Alexandru Mckeon Attending Unavailabl Donna Layne Attending Unavailable KaiCalos Attending Unavailable Brown, Xiang R Referring Unavailable Lenny DEFENSE ATTORNEY, Ronit Attending Unavailable Brown, Xiang R Primary Care Unavailable LionelSaúl Attending Unavailable Manley, Lubna Referring Unavailable Brown, Xiang R Primary Care Unavailable Bonnie, Saúl Attending Unavailable Manley, Lubna Referring Unavailable Brown, Xiang R Primary Care Unavailable Kai, Calos Attending Unavailable Brown, Xiang R Primary Care Unavailable Brown, Xiang R Primary Care Unavailable Kai, [place] Attending Unavailable Jose Small Referring Unavailable Bonnie, Saúl Attending Unavailable Brown, Xiang R Primary Care Unavailable Brown, Xiang R Referring Unavailable Lionel, Saúl Attending Unavailable Brown, Xiang R Primary Care Unavailable Brown, Xiang R Referring Unavailable Lenny DEFENSE ATTORNEY, Ronit Attending Unavailable Brown, Xiang R Primary Care Unavailable Brown, Xiang R Referring Unavailable Brown, Xiang R Primary Care Unavailable Manley, Lubna Attending Unavailable Brown, Xiang R Referring Unavailable Brown, Xiang R Attending Unavailable Brown, Xiang R Primary Care Unavailable Brown, Xiang R Primary Care Unavailable Bonnie, Saúl Attending Unavailable Lionel, Saúl Referring Unavailable Magaly Denise Attending Unavail able Magaly Denise Referring Unavail able Brown, Xiang R Primary Care Unavailable Manley, Lubna Referring Unavailable Manley, Lubna Attending Unavailable Brown, Xiang R Primary Care Unavailable Devin Curry Attending Unavailable Devin Curry Referring Unavailable Brown, Xiang R Primary Care Unavailable Allergies Allergy Classification Reported Allergen(s) Allergy Type Date of Onset Reaction(s) Facility (8 sources) Etodolac; Translations: [ETODOLAC] Drug Allergy 03-12-2005 GI Upset [facility] (20 sources) Amoxicillin; Translations: [AMOXICILLIN] Drug Allergy 07-18-2021 Angioedema [facility] (20 sources) Lindane; Translations: [LINDANE] Drug Allergy 07-18-2021 Rash [facility] (1 source) Amoxicillin Drug Allergy 10-23-2024 [facility] (1 source) Lindane Drug Allergy 10-23-2024 [facility] (1 source) Unable to Assess Drug allergy (disorder) 06-17-2024 [facility] Medications Current Medications Medication Drug [...] Dx: Type 2 DM - Uncontrolled E11.65 clindamycin 300 mg oral capsule (11 sources) Lincosamide Antibacterial Start: 10-23-2024 Start: 05-24-2023 End: 07-28-2023 DOCOSAHEXANOIC ACID/EPA (FIS H OIL ORAL) (7 sources) DOCOSAHEXANOIC A ANNA MARIE/EPA (FISH OIL ORAL) Take by mouth. Active DOCOSAHEXANOIC A ANNA MARIE/EPA (FISH OIL ORAL) Take by mouth. 0 Active Comment on above: Take by mouth. 1 ml evolocumab 140 mg/ml au to-injector (20 sources) PCSK9 Inhibitor Start: 01-04-2024 End: 05-09-2024 Start: 07-28-2023 End: 11-03-2023 Handicap placard (1 source) Start: 07-22-[address] Active 0 .Route .MEDSUPPLY 1 July 22, 2023 12:00am Due to COPD, [...] January 13, 2023 January 26, 2023 2:35pm [id number] 200 actuat albuter ol 0.09 mg/actuat metered [...] 250 mg tablet Discontinued 0 PO .COMPLEX 6 December 05, 2019 12:00am January 10, 2020 [...] End: 09-21-2024 ciprofloxacin 500 mg oral tablet (20 sources) Quinolone Antimicrobial Start: 08-12-2020 End: 09-05-2020 clopidogrel 75 mg oral table t (20 [...] contrast guidelines ezetimibe 10 mg oral tablet (15 sources) Dietary Cholesterol Absorption Inhibitor Start: 06-17-2024 End: 09-27-2024 Start: 11-03-2023 End: 05-10-2024 famotidine 20 mg oral tablet (20 sources) Histamine-2 Receptor Antagonist Start: 08-19-2019 End: 06-13-2021 fenofibrate 134 mg oral capsule (20 sources) Peroxisome Proliferator Receptor alpha Agonist Start: 04-08-2017 End: 05-10-2024 Comment on above: Take 134 mg by mouth daily with breakfast. fluticasone propionate 0.05 mg/actuat metered dose nasal spray (20 sources) Corticosteroid Start: 05-21-2024 End: 09-18-2024 furosemide 40 mg oral tablet (19 sources) Loop Diuretic Start: 10-19-2024 End: 10-23-2024 Start: 06-20-2024 End: 09-27-2024 icosapent ethyl 1000 mg oral capsule (20 [...] U SC WITH DINNER August 11, 2018 9:August 16, 2019 12:37pm Start: 08-11-2018 End: 08-16-2019 Insulin Nph And Regular Cheli n Discontinued 24 UNIT SC WITH DINNER August 11, 2018 8:August 16, 2019 11:37am Start: 08-11-2018 End: 08-16-2019 [...] UNIT SC WITH BREAKFAST August 11, 2018 8:August 16, 2019 11:37am Start: 08-11-2018 End: 08-16-2019 Insulin Nph And Regular Cheli n Discontinued 30 UNIT SC WITH BREAKFAST August 11, 2018 9:August 16, 2019 12:37pm Start: 06-11-2018 End: 08-11-2018 [...] .ROUTE .COMPLEX 105 July 30, 2022 1:55pm October 10th, 2023 9:26am 9pm: eat a meal, inject [...] daily. lidocaine 0.05 mg/mg medicat ed patch (20 sources) Antiarrhythmic, Amide Local Anesthetic Start: 07-05-2020 [...] as dir ected every 24 hours. Nirmatrelvir-Ritonavir (19 sources) Start: 07-18-2021 End: 09-18-2021 Start: 07-18-2021 [...] 100 mg tablet Discontinued 0 PO .COMPLEX 30 July 18, 2021 12:00am September 18, 2021 2:39pm take TWO 150 mg tablets of nirmatrelvir with ONE 100 mg tablet of ritonavir twice daily for 5 days nitroglycerin 0.4 mg sublingual tablet (20 sources) Nitrate Vasodilator Start: 06-12-2018 End: 09-27-2024 Comment on above: Dissolve 0.4 mg unde r the tongue every 5 minutes as needed. [place]-3 Fatty Acids-Fish Oil (12 sources) Start: 07-10-2017 End: 07-28-2017 [place]-3 Fatty Acids-Fish Oil Discontinued 2 EACH PO DAILY July 10, 2017 3:35pm July 28, 2017 1:36pm Start: 07-10-2017 End: 07-28-2017 [place]-3 Fatty Acids-Fish Oil Discontinued 2 EACH PO DAILY July 09, 2017 11:00pm July 28, 2017 12:36pm Start: 07-10-2017 End: 07-28-2017 [place]-3 Fatty Acids-Fish Oil Discontinued 2 EACH PO DAILY July 10, 2017 12:00am July 28, 2017 1:36pm [place]-3 Fatty Acids-Fish Oil 1 EACH capsule (1 source) Start: 07-10-2017 End: 07-28-2017 [place]-3 Fatty Acids-Fish Oil 1 EACH capsule Discontinued 2 NMA PO DAILY July 10, 2017 12:00am July 28, 2017 1:36pm omeprazole 20 mg delayed release oral capsule (20 sources) Proton Pump Inhibitor Start: 01-01-2022 End: 09-13-2024 Start: 07-10-2017 End: 07-14-2017 ondansetron 4 mg disintegrating oral tablet (20 sources) Serotonin-3 Receptor Antagonist Start: 08-23-2023 End: [...] phenazopyridine hydrochlorid e 100 mg oral tablet (20 sources) Start: 06-01-2019 End: 01-24-2020 predniSONE 20 [...] on above: Take 2 tablets by mo ut once daily. simvastatin 40 mg oral table t (20 sources) HMG-CoA Reductase Inhibitor Start: 12-01-2016 End: 06-12-2018 SITagliptin 50 mg oral table t (20 sources) Dipeptidyl Peptidase 4 Inhibitor Start: 07-14-2017 End: 07-28-2017 spironolactone 25 mg oral ta blet (7 sources) Aldosterone Antagonist Start: 06-20-2024 End: 09-21-2024 sulfamethoxazole 800 mg / trimethoprim 160 mg oral tablet (20 sources) Dihydrofolate Reductase Inhibitor Antibacterial, Sulfonamide Antimicrobial Start: 01-16-2020 End: 01-24-2020 Start: 01-16-2020 End: 01-24-2020 Sulfamethoxazole-Trimethopri m 1 EACH tablet Discontinued 1 NMA PO TWICE A DAY January 16, 2020 12:00am January 24, 2020 1:34pm Start: 01-16-2020 End: 01-24-2020 Sulfamethoxazole-Trimethopri m Discontinued 1 EACH PO TWICE A DAY January 15, 2020 11:00pm January 24, 2020 12:34pm triamcinolone acetonide 5 mg /ml topical cream (19 sources) Corticosteroid Start: 01-13-2023 End: 01-26-2023 Start: 03-05-2017 triamcinolone acetonide (KENALOG) 0.1 % cream Indications: Rash Apply 1 application to affected area three times daily. Apply sparingly to area for rash/itching. 30 g 03/05/2017 Active Comment on above: Apply 1 application to affected area three times daily. Apply sparingly to area for rash/itching. Varenicline Tartrate (20 sources) Partial Cholinergic Nicotinic Agonist Start: 0 End: 02-08-2020 Start: 05-20-2019 End: 02-08-2020 take 1 tablet by mouth once Varenicline Tartrate ([place] tix Starting Month Box) 0.5 mg (11)- 1 mg (42) tablets,dose pack Discontinued 0 PO per package directions May 20, 2019 1:00am February 08, 2020 [...] abdominal pain] Onset: 01-28-2022 Episodic Acute bronchitis (20 sources) Acute bronchitis with bronchospasm; Translations: [Acute [...] Onset: 10-09-2015 10-09-2015 Chronic E Codes: Fall (11 sources) Fall; Translations: [Unspecified fall, initial encounter] 04-25-2023 Episodic Essential hypertension (20 sources) Essential hypertension; Translations: [Essential (primary) hypertension] Onset: 06-20-2024 Chronic Fluid and electrolyte disorders (20 sources) Hyponatremia; Translations: [Hypo-osmolality and hyponatremia] 07-06-2020 Episodic Headache; including migraine (20 sources) Headache; Translations: [Headache] 08-13-2020 Episodic Heart valve disorders (19 sources) Aortic valve stenosis; Translations: [Nonrheumatic aortic (valve) stenosis] Onset: 10-18-2024 07-12-2024 Chronic Hypertension with complications and secondary hypertension (1 source) Hypertensive heart disease with heart failure; Translations: [Hypertensive heart disease with heart failure] Onset: 10-14-2024 Chronic Nonspecific chest pain (20 sources) Chest discomfort; Translations: [Other chest pain] [...] initial encounter] Onset: 09-29-2024 Episodic Other aftercare (8 sources) Surgical follow-up; Translations: [Encounter for surgical aftercare following surgery on the circulatory system] 05-17-2024 Episodic Other aftercare (2 sources) halfway (current) use of insulin; 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] Onset: 06-24-2024 Episodic Other and ill-defined heart disease (8 sources) Impaired left ventricular function; Translations: [Heart disease, unspecified] 05-10-2024 Chronic Other and ill-defined heart disease (20 sources) Left ventricular cardiac dysfunction; Translations: [Heart disease, unspecified] 06-27-2024 Chronic Other and ill-defined heart disease (2 sources) Heart disease, unspecified; Translations: [Heart disease, unspecified] Onset: 09-27-2024 Chronic Other circulatory disease (8 sources) Disorder of carotid artery; Translations: [Disorder of arteries and arterioles, unspecified] 09-09-2023 Chronic Other circulatory disease (1 source) Disorder of arteries and arterioles, unspecified; Translations: [Disorder of arteries and arterioles, unspecified] Onset: 09-12-2024 Chronic Other circulatory disease (1 source) Other specified peripheral vascular diseases; Translations: [Other specified peripheral vascular diseases] Onset: 06-03-2024 Chronic Other circulatory disease (1 source) H/O: heart failure; Translations: [Personal history of other diseases of the circulatory system] 10-23-2024 Episodic Other connective tissue disease (8 sources) Pain in left lower limb; Translations: [Pain in left leg] 10-28-2023 Episodic Other connective tissue disease (1 source) Pain in left leg; Translations: [Pain in left leg] Onset: 09-29-2024 Episodic Other ear and sense organ disorders (12 sources) Eczema of external auditory canal; Translations: [Acute eczematoid otitis externa, bilateral] 10-09-2022 Episodic Other hematologic conditions (20 sources) High troponin I level; Translations: [Other specified abnormalities of plasma proteins] 06-14-2018 Episodic Other injuries and conditions due to external causes (11 sources) Abrasion; Translations: [Other injury of unspecified body region, initial encounter] 04-25-2023 Episodic Other injuries and conditions due to external causes (2 sources) Hematoma; Translations: [Other injury of unspecified body region, initial encounter] 10-21-2024 Episodic Other liver diseases (20 sources) Steatosis of liver; Translations: [Fatty (change of) liver, not elsewhere classified] 06-14-2018 Chronic Other lower respiratory disease (11 sources) Pulmonary edema; Translations: [Chronic pulmonary edema] 06-27-2024 Chronic Other lower respiratory disease (8 sources) Dyspnea on exertion; Translations: [Other forms of dyspnea] 05-10-2024 Episodic Other lower respiratory disease (7 sources) Respiratory insufficiency; Translations: [Other abnormalities of breathing] 06-27-2024 Episodic Other lower respiratory disease (7 sources) Hypoxia; Translations: [Hypoxemia] 06-27-2024 Episodic Other lower respiratory disease (11 sources) Acute respiratory distress; Translations: [Acute respiratory distress] 06-27-2024 Episodic Other nutritional; endocrine; and metabolic disorders (20 sources) Hypocalcemia; Translations: [Hypocalcemia] 06-17-2021 Chronic Other nutritional; endocrine; and metabolic disorders (11 sources) Body mass index 25-29 - overweight; Translations: [Overweight] 06-27-2024 Episodic Other nutritional; endocrine; and metabolic disorders (1 source) H/O: diabetes mellitus; Translations: [Personal history of other endocrine, nutritional and metabolic disease] 10-23-2024 Episodic Other skin disorders (12 sources) Lesion of skin of foot; Translations: [...] caused by tuberculosis or sexually transmitted disease) (7 sources) Cardiomyopathy; Translations: [Cardiomyopathy, unspecified] 08-06-2024 Chronic Peripheral and visceral atherosclerosis (20 sources) Intermittent claudication; Translations: [Peripheral vascular disease, unspecified] Onset: 05-05-2024 09-10-2023 Chronic Comment on above: LEAS Residual codes; unclassified (20 sources) Noncompliance with medication regimen; Translations: [Patient's other noncompliance with medication regimen] 06-14-2018 Episodic Residual codes; unclassified (1 source) Peripheral edema; Translations: [Localized edema] 10-23-2024 Episodic Skin and subcutaneous tissue infections (20 sources) Cellulitis; Translations: [Cellulitis, unspecified] 03-09-2022 Episodic Spondylosis; intervertebral disc disorders; other back problems (20 sources) Backache; Translations: [Dorsalgia, unspecified] 07-06-2020 Episodic [...] Onset: 06-24-2024 07-06-2020 Episodic Heart valve disorders (10 sources) Heart murmur; Translations: [Cardiac murmur, unspecified] [...] Onset: 06-24-2024 Episodic Pleurisy; pneumothorax; pulmonary collapse (13 sources) Bilateral pleural effusion; Translations: [Pleural effusion, not elsewhere classified] Onset: 06-24-2024 06-27-2024 Episodic Respiratory failure; insufficiency; arrest (adult) (13 sources) Acute hypoxemic respiratory failure; Translations: [Acute respiratory failure with hypoxia] Onset: 06-24-2024 06-27-2024 Episodic Screening and history of mental health and substance abuse codes (1 source) Personal history of nicotine dependence; Translations: [Personal history of nicotine dependence] Onset: 06-06-2024 Episodic Results Test Name Value Interpretation Reference Range Facility Absolute lymphocyte countOrd ered By: Devin Curry on 10-23-2024 Lymphocytes Auto (Unsp spec) [#/Vol] 1.48 10*3/uL 0.83-4.51 [facility] Anion gap in Serum or Plasma Ordered By: Devin Curry on 10-23-2024 Anion gap [Moles/Vol] 12 mmol/L 08-18 [facility] Automated lymphocyte count a s percentage of total leukocytesOrdered By: Devin Curry on 10-23-2024 Lymphocytes/100 WBC Auto (Unsp spec) 21.6 % [facility] BUN/creatinine ratioOrdered By: Devin Curry on 10-23-2024 Urea nitrogen/Creatinine [Mass ratio] 18.2 mg/mg 01-23 [facility] Basic Metabolic Profile (BMP )on 10-23-2024 BUN/CRE 18.2 RATIO Normal 01-23 [facility] Comment on above: Performed By: #### L 100.0100, L500.2500 ####[facility] [id number] [facility] [address] Calcium [Mass/Vol] 9.3 mg/dL Normal 7.6-11.0 [facility] Comment on above: Performed By: #### L 100.0100, L500.2500 ####[facility] [id number] [place], [address] Chloride [Moles/Vol] 100 mmol/L Normal 98-108 [facility] Comment on above: Performed By: #### L 100.0100, L500.2500 ####[facility] [id number] [place], [address] CO2 [Moles/Vol] 26.0 mmol/L Normal 21.0-32.0 [facility] Comment on above: Performed By: #### L 100.0100, L500.2500 ####[facility] [id number] [place], [address] Creatinine [Mass/Vol] 1.00 mg/dL Normal 0.70-1.20 [facility] Comment on above: Performed By: #### L 100.0100, L500.2500 ####[facility] [id number] [place], [address] ECRCL 89.11 ml/min Normal 50-250 [facility] Comment on above: Performed By: #### L 100.0100, L500.2500 ####[facility] [id number] [place], [address] GAP 12 Normal 5-15 [facility] Comment on above: Performed By: #### L 100.0100, L500.2500 ####[facility] [id number] [place], [address] GFR/1.73 sq M.predicted among non-blacks MDRD (S/P/Bld) [Vol rate/Area] 84 mL/min/{1.73_m2} Normal >60 [facility] Comment on above: Result Comment: mL/m in/1.73m2 CKD-EPI Creatinine Equation (2020) Performed By: #### L 100.0100, L500.2500 ####[facility] [address] [place], [address] Glucose [Mass/Vol] 256 mg/dL High 70-99 [facility] Comment on above: Performed By: #### L 100.0100, L500.2500 ####[facility] [id number] [place], [address] Potassium [Moles/Vol] 3.9 mmol/L Normal 3.3-5.1 [facility] Comment on above: Performed By: #### L 100.0100, L500.2500 ####[facility] [address] [place], [address] Sodium [Moles/Vol] 138 mmol/L Normal 133-145 [facility] Comment on above: Performed By: #### L 100.0100, L500.2500 ####[facility] [address] [place], [address] Urea nitrogen [Mass/Vol] 18 mg/dL Normal 4-19 [facility] Comment on above: Performed By: #### L 100.0100, L500.2500 ####[facility] [address] [place], [address] Basophil percentageOrdered B y: Devin Curry on 10-23-2024 Basophils/100 WBC (Bld) 0.3 % 0-1 [facility] CBC W/Diff, Automatedon 10-05 0-2024 Absolute Lymph 1.48 X10 3/uL Normal 0.83-4.51 [facility] Comment on above: Performed By: #### L 100.0100, L500.2500 ####[facility] [address] [place], [address] Absolute Neut 4.7 X10 3/uL Normal 2.0-7.7 [facility] Comment on above: Performed By: #### L 100.0100, L500.2500 ####[facility] [address] [place], [address] Basophils/100 WBC (Bld) 0.3 % Normal 0-1 [facility] Comment on above: Performed By: #### L 100.0100, L500.2500 ####[facility] [address] [place], [address] Eosinophils/100 WBC (Bld) 3.4 % Normal 0-5 [facility] Comment on above: Performed By: #### L 100.0100, L500.2500 ####[facility] [address] [place], [address] Erythrocyte distribution width (RBC) [Ratio] 12.8 % Normal 11.6-14.6 [facility] Comment on above: Performed By: #### L 100.0100, L500.2500 ####[facility] [address] [place], [address] Hematocrit (Bld) [Volume fraction] 42.4 % Normal 40-54 [facility] Comment on above: Performed By: #### L 100.0100, L500.2500 ####[facility] [address] [place], [address] Hemoglobin (Bld) [Mass/Vol] 14.0 g/dL Normal 13.0-16.5 [facility] Comment on above: Performed By: #### L 100.0100, L500.2500 ####[facility] [address] [place], [address] IG% 0.100 Normal 0.0-0.9 [facility] Comment on above: Result Comment: IG% - Immature Granulocytes (promyelocytes, myelocytes andmetamyelocytes) > 1% indicates that a LEFT SHIFT is Present. Performed By: #### L 100.0100, L500.2500 ####[facility] [address] [place], [address] Lymphocytes/100 WBC (Bld) 21.6 % Normal 19-41 [facility] Comment on above: Performed By: #### L 100.0100, L500.2500 ####[facility] [address] [place], [address] MCH (RBC) [Entitic mass] 30.8 pg Normal 27.0-32.0 [facility] Comment on above: Performed By: #### L 100.0100, L500.2500 ####[facility] [address] [place], [address] MCHC (RBC) [Mass/Vol] 33.0 g/dL Normal 32-36 [facility] Comment on above: Performed By: #### L 100.0100, L500.2500 ####[facility] [address] [place], [address] MCV (RBC) [Entitic vol] 93.2 fL Normal 80-94 [facility] Comment on above: Performed By: #### L 100.0100, L500.2500 ####[facility] [address] [place], [address] Monocytes/100 WBC (Bld) 6.1 % Normal 0-10 [facility] Comment on above: Performed By: #### L 100.0100, L500.2500 ####[facility] [address] [place], [address] Neutrophils/100 WBC (Bld) 68.5 % Normal 47-70 [facility] Comment on above: Performed By: #### L 100.0100, L500.2500 ####[facility] [address] [place], [address] Nucleated RBC (Bld) [#/Vol] 0 10*3/uL Normal 0-5 [facility] Comment on above: Performed By: #### L 100.0100, L500.2500 ####[facility] [address] [place], [address] Platelet mean volume (Bld) [Entitic vol] 10.0 fL Normal 6.2-12.0 [facility] Comment on above: Performed By: #### L 100.0100, L500.2500 ####[facility] [address] [place], [address] Platelets (Bld) [#/Vol] 255 10*3/uL Normal 150-450 [facility] Comment on above: Performed By: #### L 100.0100, L500.2500 ####[facility] [address] [place], [address] RBC (Bld) [#/Vol] 4.55 10*6/uL Low 4.6-6.2 [facility] Comment on above: Performed By: #### L 100.0100, L500.2500 ####[facility] [address] [place], [address] RDW SD 43.9 fl Normal 35.1-43.9 [facility] Comment on above: Performed By: #### L 100.0100, L500.2500 ####[facility] [address] [place], [address] WBC (Bld) [#/Vol] 6.9 10*3/uL Normal 4.4-11.0 [facility] Comment on above: Performed By: #### L 100.0100, L500.2500 ####[facility] [address] [place], [address] Carbon dioxide, total [Moles /volume] in Central venous bloodOrdered By: Devin Curry on 10-23-2024 CO2 [Moles/Vol] 26.0 mmol/L 21.0-32.0 [facility] Chloride assayOrdered By: Davian Curry on 10-23-2024 Chloride [Moles/Vol] 100 mmol/L 98-108 [facility] Emergency Department Summary on 10-23-2024 Emergency Department Summary Normal [facility] Eosinophil percentageOrdered By: Devin Curry on 10-23-2024 Eosinophils/100 WBC (Bld) 3.4 % 0-5 [facility] Erythrocyte distribution wid th ratioOrdered By: Devin Curry on 10-23-2024 Erythrocyte distribution width (RBC) [Ratio] 12.8 % 11.6-14.6 [facility] Erythrocyte distribution wid th standard deviationOrdered By: Devin Curry on 10-23-2024 Erythrocyte distribution width (RBC) [Ratio] 43.9 fl 35.1-43.9 [facility] Glomerular filtration rate ( GFR) estimation/1.73 sq m using serum, plasma, or whole bOrdered By: Devin Curry on 10-23-2024 GFR/1.73 sq M.predicted among non-blacks MDRD (S/P/Bld) [Vol rate/Area] 84 mL/min/{1.73_m2} >60 [facility] Hematocrit Auto (Bld) [Volum e fraction]Ordered By: Devin Curry on 10-23-2024 Hematocrit (Bld) [Volume fraction] 42.4 % 40-54 [facility] Hemoglobin measurementOrdere d By: Devin Curry on 10-23-2024 Hemoglobin (Bld) [Mass/Vol] 14.0 g/dL 13.0-16.5 [facility] Immature granulocytes/100 WB C Auto (Bld)Ordered By: Devin Curry on 10-23-2024 Immature granulocytes/100 WBC (Bld) 0.100 % 0.0-0.9 [facility] MCV (mean corpuscular volume ) determinationOrdered By: Devin Curry on 10-23-2024 MCV (RBC) [Entitic vol] 93.2 fL 80-94 [facility] Mean corpuscular hemoglobin (MCH) determinationOrdered By: Devin Curry on 10-23-2024 MCH (RBC) [Entitic mass] 30.8 pg 27.0-32.0 [facility] Monocyte percentageOrdered B y: Devin Curry on 10-23-2024 Monocytes/100 WBC (Bld) 6.1 % 0-10 [facility] Neutrophil percentageOrdered By: Devin Curry on 10-23-2024 Neutrophils/100 WBC (Bld) 68.5 % 47-70 [facility] Platelet countOrdered By: Davian Curry on 10-23-2024 Platelets (Bld) [#/Vol] 255 10*3/uL 150-450 [facility] Potassium measurement (mass/ volume)Ordered By: Devin Curry on 10-23-2024 Potassium (Unsp spec) [Mass/Vol] 3.9 mmol/L 3.3-5.1 [facility] RBC Auto (Bld) [#/Vol]Ordere d By: Devin Curry on 10-23-2024 RBC (Bld) [#/Vol] 4.55 10*6/uL Low 4.6-6.2 [facility] Serum creatinine measurement (mass/volume)Ordered By: Devin Curry on 10-23-2024 Creatinine [Mass/Vol] 1.00 mg/dL 0.70-1.20 [facility] Serum glucose measurement (m ass/volume)Ordered By: Devin Curry on 10-23-2024 Glucose [Mass/Vol] 256 mg/dL High 70-99 [facility] Serum or plasma calcium brenda urement (mass/volume)Ordered By: Devin Curry on 10-23-2024 Calcium [Mass/Vol] 9.3 mg/dL 7.6-11.0 [facility] Serum or plasma urea nitroge n measurement (mass/volume)Ordered By: Devin Curry on 10-23-2024 Urea nitrogen [Mass/Vol] 18 mg/dL 4-19 [facility] Sodium levelOrdered By: Devin Curry on 10-23-2024 Sodium [Moles/Vol] 138 mmol/L 133-145 [facility] White blood cell (WBC) count Ordered By: Devin Curry on 10-23-2024 WBC (Bld) [#/Vol] 6.9 10*3/uL 4.4-11.0 [facility] Emergency Department Summary on 10-21-2024 Emergency Department Summary Normal [facility] Absolute lymphocyte countOrd ered By: Valentín Miller on 10-19-2024 Lymphocytes Auto (Unsp spec) [#/Vol] 1.65 10*3/uL 0.83-4.51 [facility] Anion gap in Serum or Plasma Ordered By: Valentín Miller on 10-19-2024 Anion gap [Moles/Vol] 13 mmol/L 5-15 [facility] Automated lymphocyte count a s percentage of total leukocytesOrdered By: Valentín Miller on 10-19-2024 Lymphocytes/100 WBC Auto (Unsp spec) 24.7 % 19-41 [facility] BUN/creatinine ratioOrdered By: Valentín Miller on 10-19-2024 Urea nitrogen/Creatinine [Mass ratio] 16.0 mg/mg 10-20 [facility] Basic Metabolic Profile (BMP )on 10-19-2024 BUN/CRE 16.0 RATIO Normal 10-20 [facility] Comment on above: Performed By: #### L 503.7505, L501.4021, L100.0100, L500.2500 ####[facility] [address] [place], [address] Calcium [Mass/Vol] 9.2 mg/dL Normal 7.6-11.0 [facility] Comment on above: Performed By: #### L 503.7505, L501.4021, L100.0100, L500.2500 ####[facility] [address] [place], [address] Chloride [Moles/Vol] 98 mmol/L Normal 98-108 [facility] Comment on above: Performed By: #### L 503.7505, L501.4021, L100.0100, L500.2500 ####[facility] [address] [place], [address] CO2 [Moles/Vol] 22.6 mmol/L Normal 21.0-32.0 [facility] Comment on above: Performed By: #### L 503.7505, L501.4021, L100.0100, L500.2500 ####[facility] [address] [place], [address] Creatinine [Mass/Vol] 1.19 mg/dL Normal 0.70-1.20 [facility] Comment on above: Performed By: #### L 503.7505, L501.4021, L100.0100, L500.2500 ####[facility] [address] [place], [address] ECRCL 66.79 ml/min Normal 50-250 [facility] Comment on above: Performed By: #### L 503.7505, L501.4021, L100.0100, L500.2500 ####[facility] [address] [place], [address] GAP 13 Normal 5-15 [facility] Comment on above: Performed By: #### L 503.7505, L501.4021, L100.0100, L500.2500 ####[facility] [address] [place], [address] GFR/1.73 sq M.predicted among non-blacks MDRD (S/P/Bld) [Vol rate/Area] 68 mL/min/{1.73_m2} Normal >60 [facility] Comment on above: Result Comment: mL/m in/1.73m2 CKD-EPI Creatinine Equation (2020) Performed By: #### L 503.7505, L501.4021, L100.0100, L500.2500 ####[facility] [address] [place], [address] Glucose [Mass/Vol] 343 mg/dL High 70-99 [facility] Comment on above: Performed By: #### L 503.7505, L501.4021, L100.0100, L500.2500 ####[facility] [address] [place], [address] Potassium [Moles/Vol] 5.5 mmol/L High 3.3-5.1 [facility] Comment on above: Result Comment: Hemo lysis present, Results??could be affected.??Hemolysis present, Results??could be affected.?? Performed By: #### L 503.7505, L501.4021, L100.0100, L500.2500 ####[facility] [address] [place], [address] Sodium [Moles/Vol] 133 mmol/L Normal 133-145 [facility] Comment on above: Performed By: #### L 503.7505, L501.4021, L100.0100, L500.2500 ####[facility] [address] [place], [address] Urea nitrogen [Mass/Vol] 19 mg/dL Normal 4-19 [facility] Comment on above: Performed By: #### L 503.7505, L501.4021, L100.0100, L500.2500 ####[facility] [address] [place], [address] Basophil percentageOrdered B y: Valentín Engels on 10-19-2024 Basophils/100 WBC (Bld) 0.3 % 0-1 [facility] CBC W/Diff, Automatedon 10-04-2024 Absolute Lymph 1.65 X10 3/uL Normal 0.83-4.51 [facility] Comment on above: Performed By: #### L 503.7505, L501.4021, L100.0100, L500.2500 ####[facility] [address] [place], [address] Absolute Neut 4.4 X10 3/uL Normal 2.0-7.7 [facility] Comment on above: Performed By: #### L 503.7505, L501.4021, L100.0100, L500.2500 ####[facility] [address] [place], [address] Basophils/100 WBC (Bld) 0.3 % Normal 0-1 [facility] Comment on above: Performed By: #### L 503.7505, L501.4021, L100.0100, L500.2500 ####[facility] [address] [place], [address] Eosinophils/100 WBC (Bld) 3.1 % Normal 0-5 [facility] Comment on above: Performed By: #### L 503.7505, L501.4021, L100.0100, L500.2500 ####[facility] [address] [place], [address] Erythrocyte distribution width (RBC) [Ratio] 12.6 % Normal 11.6-14.6 [facility] Comment on above: Performed By: #### L 503.7505, L501.4021, L100.0100, L500.2500 ####[facility] [address] [place], [address] Hematocrit (Bld) [Volume fraction] 40.7 % Normal 40-54 [facility] Comment on above: Performed By: #### L 503.7505, L501.4021, L100.0100, L500.2500 ####[facility] [address] [place], [address] Hemoglobin (Bld) [Mass/Vol] 13.7 g/dL Normal 13.0-16.5 [facility] Comment on above: Performed By: #### L 503.7505, L501.4021, L100.0100, L500.2500 ####[facility] [address] [place], [address] IG% 0.100 Normal 0.0-0.9 [facility] Comment on above: Result Comment: IG% - Immature Granulocytes (promyelocytes, myelocytes andmetamyelocytes) > 1% indicates that a LEFT SHIFT is Present. Performed By: #### L 503.7505, L501.4021, L100.0100, L500.2500 ####[facility] [address] [place], [address] Lymphocytes/100 WBC (Bld) 24.7 % Normal 19-41 [facility] Comment on above: Performed By: #### L 503.7505, L501.4021, L100.0100, L500.2500 ####[facility] [address] [place], [address] MCH (RBC) [Entitic mass] 31.2 pg Normal 27.0-32.0 [facility] Comment on above: Performed By: #### L 503.7505, L501.4021, L100.0100, L500.2500 ####[facility] [address] [place], [address] MCHC (RBC) [Mass/Vol] 33.7 g/dL Normal 32-36 [facility] Comment on above: Performed By: #### L 503.7505, L501.4021, L100.0100, L500.2500 ####[facility] [address] [place], [address] MCV (RBC) [Entitic vol] 92.7 fL Normal 80-94 [facility] Comment on above: Performed By: #### L 503.7505, L501.4021, L100.0100, L500.2500 ####[facility] [address] [place], [address] Monocytes/100 WBC (Bld) 6.1 % Normal 0-10 [facility] Comment on above: Performed By: #### L 503.7505, L501.4021, L100.0100, L500.2500 ####[facility] [address] [place], [address] Neutrophils/100 WBC (Bld) 65.7 % Normal 47-70 [facility] Comment on above: Performed By: #### L 503.7505, L501.4021, L100.0100, L500.2500 ####[facility] [address] [place], [address] Nucleated RBC (Bld) [#/Vol] 0 10*3/uL Normal 0-5 [facility] Comment on above: Performed By: #### L 503.7505, L501.4021, L100.0100, L500.2500 ####[facility] [address] [place], [address] Platelet mean volume (Bld) [Entitic vol] 10.0 fL Normal 6.2-12.0 [facility] Comment on above: Performed By: #### L 503.7505, L501.4021, L100.0100, L500.2500 ####[facility] [address] [place], [address] Platelets (Bld) [#/Vol] 241 10*3/uL Normal 150-450 [facility] Comment on above: Performed By: #### L 503.7505, L501.4021, L100.0100, L500.2500 ####[facility] [address] [place], [address] RBC (Bld) [#/Vol] 4.39 10*6/uL Low 4.6-6.2 [facility] Comment on above: Performed By: #### L 503.7505, L501.4021, L100.0100, L500.2500 ####[facility] [address] [place], [address] RDW SD 43.1 fl Normal 35.1-43.9 [facility] Comment on above: Performed By: #### L 503.7505, L501.4021, L100.0100, L500.2500 ####[facility] [address] [place], [address] WBC (Bld) [#/Vol] 6.7 10*3/uL Normal 4.4-11.0 [facility] Comment on above: Performed By: #### L 503.7505, L501.4021, L100.0100, L500.2500 ####[facility] [address] [place], [address] Carbon dioxide, total [Moles /volume] in Central venous bloodOrdered By: Valentín Miller on 10-19-2024 CO2 [Moles/Vol] 22.6 mmol/L 21.0-32.0 [facility] Chest 1 View (Portable)on Chest 1 View (Portable) Normal [facility] Chloride assayOrdered By: Ana Miller on 10-19-2024 Chloride [Moles/Vol] 98 mmol/L 98-108 [facility] Emergency Department Summary on 10-19-2024 Emergency Department Summary Normal [facility] Eosinophil percentageOrdered By: Valentín Miller on 10-19-2024 Eosinophils/100 WBC (Bld) 3.1 % 0-5 [facility] Erythrocyte distribution wid th ratioOrdered By: Valentín Miller on 10-19-2024 Erythrocyte distribution width (RBC) [Ratio] 12.6 % 11.6-14.6 [facility] Erythrocyte distribution wid th standard deviationOrdered By: Valentín Miller on 10-19-2024 Erythrocyte distribution width (RBC) [Ratio] 43.1 fl 35.1-43.9 [facility] Glomerular filtration rate ( GFR) estimation/1.73 sq m using serum, plasma, or whole bOrdered By: Valentín Miller on 10-19-2024 GFR/1.73 sq M.predicted among non-blacks MDRD (S/P/Bld) [Vol rate/Area] 68 mL/min/{1.73_m2} >60 [facility] Hematocrit Auto (Bld) [Volum e fraction]Ordered By: Valentín Miller on 10-19-2024 Hematocrit (Bld) [Volume fraction] 40.7 % 40-54 [facility] Hemoglobin measurementOrdere d By: Valentín Miller on 10-19-2024 Hemoglobin (Bld) [Mass/Vol] 13.7 g/dL 13.0-16.5 [facility] Immature granulocytes/100 WB C Auto (Bld)Ordered By: Valentín Miller on 10-19-2024 Immature granulocytes/100 WBC (Bld) 0.100 % 0.0-0.9 [facility] Influenza virus A and B and SARS-CoV-2 (COVID-19) and Respiratory syncytial virus RNAOrdered By: Valentín Miller on 10-19-2024 SARS-CoV-2 (COVID-19) RNA HAYDER+probe Ql (Unsp spec) [facility] L499.0042on 10-19-2024 Trop T High Sen 27 ng/L High <=22 [facility] Comment on above: Performed By: #### L 499.0042 ####[facility] [address] [place], [address] L499.0043on 10-19-2024 Trop T High Sen 26 ng/L High <=22 [facility] Comment on above: Performed By: #### L 499.0043 ####[facility] [address] [place], [address] L501.4021on 10-19-2024 Trop T High Sen 25 ng/L High <=22 [facility] Comment on above: Result Comment: Hemo lysis present, Results??could be affected.??Hemolysis present, Results??could be affected.?? Performed By: #### L 503.7505, L501.4021, L100.0100, L500.2500 ####[facility] [address] [place], [address] L503.7505on 10-19-2024 Natriuretic peptide B (Bld) [Mass/Vol] 4100 pg/mL High <=900 [facility] Comment on above: Result Comment: Hear t Failure Unlikely: < 300 pg/mLHeart Failure Likely< 50 Years: > 450 pg/mL50-75 Years: > 900 pg/mL>75 Years: > 1800 pg/mL Performed By: #### L 503.7505, L501.4021, L100.0100, L500.2500 ####[facility] [address] [place], [address] M100.678on 10-19-2024 M100.678 Pending SARS-CoV-2 (COVID 19) Negative INFLUENZA A Negative INFLUENZA B Negative RSV PCR Negative Normal [facility] Comment on above: Performed By: #### M 100.678 ####[facility] [address] [place], [address] MCV (mean corpuscular volume ) determinationOrdered By: Valentín Miller on 10-19-2024 MCV (RBC) [Entitic vol] 92.7 fL 80-94 [facility] Mean corpuscular hemoglobin (MCH) determinationOrdered By: Valentín Miller on 10-19-2024 MCH (RBC) [Entitic mass] 31.2 pg 27.0-32.0 [facility] Monocyte percentageOrdered B y: Valentín Miller on 10-19-2024 Monocytes/100 WBC (Bld) 6.1 % 0-10 [facility] Natriuretic peptide.B prohor parris N-Terminal [Mass/volume] in Serum or PlasmaOrdered By: Valentín Miller on 10-19-2024 Natriuretic peptide.B prohormone N-Terminal [Mass/Vol] 4100 pg/mL High <900 [facility] Neutrophil percentageOrdered By: Valentín Miller on 10-19-2024 Neutrophils/100 WBC (Bld) 65.7 % 47-70 [facility] Platelet countOrdered By: Ana Miller on 10-19-2024 Platelets (Bld) [#/Vol] 241 10*3/uL 150-450 [facility] Potassium measurement (mass/ volume)Ordered By: Valentín Miller on 10-19-2024 Potassium (Unsp spec) [Mass/Vol] 5.5 mmol/L High 3.3-5.1 [facility] RBC Auto (Bld) [#/Vol]Ordere d By: Valentín Miller on 10-19-2024 RBC (Bld) [#/Vol] 4.39 10*6/uL Low 4.6-6.2 [facility] Serum creatinine measurement (mass/volume)Ordered By: Valentín Miller on 10-19-2024 Creatinine [Mass/Vol] 1.19 mg/dL 0.70-1.20 [facility] Serum glucose measurement (m ass/volume)Ordered By: Valentín Miller on 10-19-2024 Glucose [Mass/Vol] 343 mg/dL High 70-99 [facility] Serum or plasma calcium brenda urement (mass/volume)Ordered By: Valentín Miller on 10-19-2024 Calcium [Mass/Vol] 9.2 mg/dL 7.6-11.0 [facility] Serum or plasma urea nitroge n measurement (mass/volume)Ordered By: Valentín Miller on 10-19-2024 Urea nitrogen [Mass/Vol] 19 mg/dL 4-19 [facility] Sodium levelOrdered By: Uli Miller on 10-19-2024 Sodium [Moles/Vol] 133 mmol/L 133-145 [facility] Troponin T.cardiac [Mass/vol ume] in Serum or Plasma by High sensitivity methodOrdered By: Valentín Miller on 10-19-2024 Troponin T.cardiac High sensitivity method [Mass/Vol] 26 ng/L High <22 [facility] Troponin T.cardiac High sensitivity method [Mass/Vol] 27 ng/L High <22 [facility] Troponin T.cardiac High sensitivity method [Mass/Vol] 25 ng/L High <22 [facility] White blood cell (WBC) count Ordered By: Valentín Miller on 10-19-2024 WBC (Bld) [#/Vol] 6.7 10*3/uL 4.4-11.0 [facility] Cardiology Visit Reporton Cardiology Visit Report Normal [facility] Bedside Glucoseon 09-21-2024 FINGERSTICK GLU 223 mg/dL High [address] [facility] Comment on above: Result Comment: SNEHA GEMENT OF PATIENT CARE PER NURSING PROTOCOL Performed By: #### L 501.080 ####[facility] [address] [facility] [address] FINGERSTICK GLU 197 mg/dL High 74-106 [facility] Comment on above: Result Comment: SNEHA GEMENT OF PATIENT CARE PER NURSING PROTOCOL Performed By: #### L 501.080 ####[facility] [address] [facility] [address] FINGERSTICK GLU 163 mg/dL High [facility]106 [facility] Comment on above: Result Comment: SNEHA GEMENT OF PATIENT CARE PER NURSING PROTOCOL Performed By: #### L 501.080 ####[facility] [address] [facility] [id number] Calculated very low density lipoprotein (VLDL) cholesterol measurementOrdered By: Seth Carrington on 09-21-2024 Calculated very low density lipoprotein (VLDL) cholesterol measurement 31 mg/dL 5-40 [facility] Discharge Instructionon 09-04 Discharge Instruction Normal [facility] deOrdered By: Donna Wolff on 09-21-2024 Glucose [Mass/Vol] 223 mg/dL High 74-106 [facility] LDL calc ser/plasOrdered By: Seth Carrington on 09-21-2024 Cholesterol in LDL [Mass/Vol] 18 mg/dL [facility] Lipid Profileon 09-21-2024 CHOL:HDL 2.11 Normal [facility] Comment on above: Performed By: #### L 500.4100 ####[facility] [address] [place], [place], [id number] Cholesterol [Mass/Vol] 93 mg/dL Normal <=200 [facility] Comment on above: Result Comment: Chol esterol level, Desirable <200 mg/dLBorderline high cholesterol 200-239 mg/dLHigh cholesterol >=240 mg/dLRecommendations of the NCEP Adult Treatment Panel for thefollowing risk-cutoff thresholds for the [place] Americanpulation. Performed By: #### L 500.4100 ####[facility] [address] [place], [place], [id number] Cholesterol in HDL [Mass/Vol] 44 mg/dL Normal [facility] Comment on above: Result Comment: Audrey onal Cholesterol Education Program (NCEP) guidelines:<40 mg/dL: Low HDL-cholesterol (major risk factor for CHD)>= 60 mg/dL: High HDL-cholesterol (negative risk factor forCHD)HDL-cholesterol is affected by a number of factors, e.g.smoking, exercise, hormones, sex and age. Performed By: #### L 500.4100 ####[facility] [address] [place], [place], [id number] Cholesterol in LDL [Mass/Vol] 18 mg/dL Normal [facility] Comment on above: Result Comment: Bord ykquzn=293-178 mg/dL Higher Gwny=451 mg/dL or greater Performed By: #### L 500.4100 ####[facility] [address] [place], [place], [id number] Cholesterol in VLDL [Mass/Vol] 31 mg/dL Normal 5-40 [facility] Comment on above: Performed By: #### L 500.4100 ####[facility] [address] [place], [address] Triglyceride [Mass/Vol] 155 mg/dL Normal [facility] Comment on above: Result Comment: The drugs N-Acetylcysteine and Metamizole may falselydepress this assay.Normal range: <150 mg/dLBorderline High: 150-199 mg/dLHigh: 200-499 mg/dLVery High: >500 mg/dL Performed By: #### L 500.4100 ####[facility] [address] [place], [place], [id number] Serum or plasma cholesterol in HDL measurement (mass/volume)Ordered By: Seth Carrington on 09-21-2024 Cholesterol in HDL [Mass/Vol] 44 mg/dL >40 [facility] Serum or plasma cholesterol measurement (mass/volume)Ordered By: Seth Carrington on 09-21-2024 Cholesterol [Mass/Vol] 93 mg/dL <201 [facility] Anion gap in Serum or Plasma Ordered By: Seth Carrington on 09-20-2024 Anion gap [Moles/Vol] 11 mmol/L - [facility] BUN/creatinine ratioOrdered By: Seth Carrington on 09-20-2024 Urea nitrogen/Creatinine [Mass ratio] 17.8 mg/mg - [facility] Basic Metabolic Profile (BMP )on 09-20-2024 BUN/CRE 17.8 RATIO Normal - [facility] Comment on above: Performed By: #### L 500.2500 ####[facility] [address] [place], [address] Calcium [Mass/Vol] 9.4 mg/dL Normal 7.6-11.0 [facility] Comment on above: Performed By: #### L 500.2500 ####[facility] [address] [place], [address] Chloride [Moles/Vol] 100 mmol/L Normal 98-108 [facility] Comment on above: Performed By: #### L 500.2500 ####[facility] [address] [place], [address] CO2 [Moles/Vol] 25.3 mmol/L Normal 21.0-32.0 [facility] Comment on above: Performed By: #### L 500.2500 ####[facility] [address] [place], [address] Creatinine [Mass/Vol] 1.11 mg/dL Normal 0.70-1.20 [facility] Comment on above: Performed By: #### L 500.2500 ####[facility] [address] [place], [address] ECRCL 71.61 ml/min Normal 50-250 [facility] Comment on above: Performed By: #### L 500.2500 ####[facility] [address] [place], [address] GAP 11 Normal 5-15 [facility] Comment on above: Performed By: #### L 500.2500 ####[facility] [address] [place], [address] GFR/1.73 sq M.predicted among non-blacks MDRD (S/P/Bld) [Vol rate/Area] 74 mL/min/{1.73_m2} Normal >60 [facility] Comment on above: Result Comment: mL/m in/1.73m2 CKD-EPI Creatinine Equation (2020) Performed By: #### L 500.2500 ####[facility] [address] [place], [address] Glucose [Mass/Vol] 148 mg/dL High 70-99 [facility] Comment on above: Performed By: #### L 500.2500 ####[facility] [address] [place], [address] Potassium [Moles/Vol] 4.0 mmol/L Normal 3.3-5.1 [facility] Comment on above: Performed By: #### L 500.2500 ####[facility] [address] [place], [address] Sodium [Moles/Vol] 136 mmol/L Normal 133-145 [facility] Comment on above: Performed By: #### L 500.2500 ####[facility] [address] [place], [address] Urea nitrogen [Mass/Vol] 20 mg/dL High 4-19 [facility] Comment on above: Performed By: #### L 500.2500 ####[facility] [address] [place], [address] Bedside Glucoseon 09-20-2024 FINGERSTICK GLU 152 mg/dL High 74-106 [facility] Comment on above: Result Comment: SNEHA GEMENT OF PATIENT CARE PER NURSING PROTOCOL Performed By: #### L 501.080 ####[facility] [address] [place], [address] FINGERSTICK GLU 190 mg/dL High 74-106 [facility] Comment on above: Result Comment: SNEHA GEMENT OF PATIENT CARE PER NURSING PROTOCOL Performed By: #### L 501.080 ####[facility] [address] [place], [address] FINGERSTICK GLU 246 mg/dL High 74-106 [facility] Comment on above: Result Comment: SNEHA GEMENT OF PATIENT CARE PER NURSING PROTOCOL Performed By: #### L 501.080 ####[facility] [address] [place], [place], [address] FINGERSTICK GLU 154 mg/dL High 74-106 [facility] Comment on above: Result Comment: SNEHA DUNCAN OF PATIENT CARE PER NURSING PROTOCOL Performed By: #### L 501.080 ####[facility] [address] [place], [place], [address] Carbon dioxide, total [Moles /volume] in Central venous bloodOrdered By: Seth Carrington on 09-20-2024 CO2 [Moles/Vol] 25.3 mmol/L 21.0-32.0 [facility] Chloride assayOrdered By: Carol Carrington on 09-20-2024 Chloride [Moles/Vol] 100 mmol/L 98-108 [facility] Electrocardiogram reportOrde red By: Calos Quinn on 09-20-2024 EKG study [facility] Work Phone: Glomerular filtration rate ( GFR) estimation/1.73 sq m using serum, plasma, or whole bOrdered By: Seth Carrington on 09-20-2024 GFR/1.73 sq M.predicted among non-blacks MDRD (S/P/Bld) [Vol rate/Area] 74 mL/min/{1.73_m2} >60 [facility] Potassium measurement (mass/ volume)Ordered By: Seth Carrington on 09-20-2024 Potassium (Unsp spec) [Mass/Vol] 4.0 mmol/L 3.3-5.1 [facility] Serum creatinine measurement (mass/volume)Ordered By: Seth Carrington on 09-20-2024 Creatinine [Mass/Vol] 1.11 mg/dL 0.70-1.20 [facility] Serum glucose measurement (m ass/volume)Ordered By: Seth Carrington on 09-20-2024 Glucose [Mass/Vol] 148 mg/dL High 70-99 [facility] Serum or plasma calcium brenda urement (mass/volume)Ordered By: Seth Carrington on 09-20-2024 Calcium [Mass/Vol] 9.4 mg/dL 7.6-11.0 [facility] Serum or plasma urea nitroge n measurement (mass/volume)Ordered By: Seth Carrington on 09-20-2024 Urea nitrogen [Mass/Vol] 20 mg/dL High 4-19 [facility] Sodium levelOrdered By: Seth Carrington on 09-20-2024 Sodium [Moles/Vol] 136 mmol/L 133-145 [facility] Basic Metabolic Profile (BMP )on 09-19-2024 BUN/CRE 18.5 RATIO Normal 10-20 [facility] Comment on above: Performed By: #### L 500.2500, L100.0500 ####[facility] [address] [place], [address] Calcium [Mass/Vol] 9.4 mg/dL Normal 7.6-11.0 [facility] Comment on above: Performed By: #### L 500.2500, L100.0500 ####[facility] [address] [place], [address] Chloride [Moles/Vol] 99 mmol/L Normal 98-108 [facility] Comment on above: Performed By: #### L 500.2500, L100.0500 ####[facility] [address] [place], [address] CO2 [Moles/Vol] 24.3 mmol/L Normal 21.0-32.0 [facility] Comment on above: Performed By: #### L 500.2500, L100.0500 ####[facility] [address] [place], [address] Creatinine [Mass/Vol] 1.13 mg/dL Normal 0.70-1.20 [facility] Comment on above: Performed By: #### L 500.2500, L100.0500 ####[facility] [address] [place], [address] ECRCL 70.34 ml/min Normal 50-250 [facility] Comment on above: Performed By: #### L 500.2500, L100.0500 ####[facility] [address] [place], [address] GAP 13 Normal 5-15 [facility] Comment on above: Performed By: #### L 500.2500, L100.0500 ####[facility] [address] [place], [address] GFR/1.73 sq M.predicted among non-blacks MDRD (S/P/Bld) [Vol rate/Area] 73 mL/min/{1.73_m2} Normal >60 [facility] Comment on above: Result Comment: mL/m in/1.73m2 CKD-EPI Creatinine Equation (2020) Performed By: #### L 500.2500, L100.0500 ####[facility] [address] [place], [address] Glucose [Mass/Vol] 187 mg/dL High 70-99 [facility] Comment on above: Performed By: #### L 500.2500, L100.0500 ####[facility] [address] [place], [address] Potassium [Moles/Vol] 3.7 mmol/L Normal 3.3-5.1 [facility] Comment on above: Performed By: #### L 500.2500, L100.0500 ####[facility] [address] [place], [address] Sodium [Moles/Vol] 136 mmol/L Normal 133-145 [facility] Comment on above: Performed By: #### L 500.2500, L100.0500 ####[facility] [address] [place], [address] Urea nitrogen [Mass/Vol] 21 mg/dL High 4-19 [facility] Comment on above: Performed By: #### L 500.2500, L100.0500 ####[facility] [address] [place], [address] Bedside Glucoseon 09-19-2024 FINGERSTICK GLU 198 mg/dL High 74-106 [facility] Comment on above: Result Comment: SNEHA GEMENT OF PATIENT CARE PER NURSING PROTOCOL Performed By: #### L 501.080 ####[facility] [address] [place], [address] FINGERSTICK GLU 170 mg/dL High 74-106 [facility] Comment on above: Result Comment: SNEHA GEMENT OF PATIENT CARE PER NURSING PROTOCOL Performed By: #### L 501.080 ####[facility] [address] [place], [address] FINGERSTICK GLU 193 mg/dL High 74-106 [facility] Comment on above: Result Comment: SNEHA GEMENT OF PATIENT CARE PER NURSING PROTOCOL Performed By: #### L 501.080 ####[facility] [address] [place], [address] FINGERSTICK GLU 163 mg/dL High -106 [facility] Comment on above: Result Comment: SNEHA GEMENT OF PATIENT CARE PER NURSING PROTOCOL Performed By: #### L 501.080 ####[facility] [address] [place], [address] CBC-Complete Blood Cnt No Di ffon 09-19-2024 Erythrocyte distribution width (RBC) [Ratio] 12.5 % Normal 11.6-14.6 [facility] Comment on above: Performed By: #### L 500.2500, L100.0500 ####[facility] [address] [place], [address] Hematocrit (Bld) [Volume fraction] 44.2 % Normal 40-54 [facility] Comment on above: Performed By: #### L 500.2500, L100.0500 ####[facility] [address] [place], [address] Hemoglobin (Bld) [Mass/Vol] 14.8 g/dL Normal 13.0-16.5 [facility] Comment on above: Performed By: #### L 500.2500, L100.0500 ####[facility] [address] [place], [address] MCH (RBC) [Entitic mass] 31.1 pg Normal 27.0-32.0 [facility] Comment on above: Performed By: #### L 500.2500, L100.0500 ####[facility] [address] [place], [address] MCHC (RBC) [Mass/Vol] 33.5 g/dL Normal 32-36 [facility] Comment on above: Performed By: #### L 500.2500, L100.0500 ####[facility] [address] [place], [address] MCV (RBC) [Entitic vol] 92.9 fL Normal 80-94 [facility] Comment on above: Performed By: #### L 500.2500, L100.0500 ####[facility] [address] [place], [address] Platelet mean volume (Bld) [Entitic vol] 9.5 fL Normal 6.2-12.0 [facility] Comment on above: Performed By: #### L 500.2500, L100.0500 ####[facility] [address] [place], [address] Platelets (Bld) [#/Vol] 297 10*3/uL Normal 150-450 [facility] Comment on above: Performed By: #### L 500.2500, L100.0500 ####[facility] [address] [place], [address] RBC (Bld) [#/Vol] 4.76 10*6/uL Normal 4.6-6.2 [facility] Comment on above: Performed By: #### L 500.2500, L100.0500 ####[facility] [address] [place], [address] RDW SD 43.1 fl Normal 35.1-43.9 [facility] Comment on above: Performed By: #### L 500.2500, L100.0500 ####[facility] [address] [place], [address] WBC (Bld) [#/Vol] 7.7 10*3/uL Normal 4.4-11.0 [facility] Comment on above: Performed By: #### L 500.2500, L100.0500 ####[facility] [address] [facility] [place], [address] Erythrocyte distribution wid th ratioOrdered By: Clinton Soares on 09-19-2024 Erythrocyte distribution width (RBC) [Ratio] 12.5 % 11.6-14.6 [facility] Erythrocyte distribution wid th standard deviationOrdered By: Clinton Soares on 09-19-2024 Erythrocyte distribution width (RBC) [Ratio] 43.1 fl 35.1-43.9 [facility] Hematocrit Auto (Bld) [Volum e fraction]Ordered By: Clinton Soares on 09-19-2024 Hematocrit (Bld) [Volume fraction] 44.2 % 40-54 [facility] Hemoglobin measurementOrdere d By: Clinton Soares on 09-19-2024 Hemoglobin (Bld) [Mass/Vol] 14.8 g/dL 13.0-16.5 [facility] Limited echocardiogram repor tOrdered By: Calos Quinn on 09-19-2024 Study report [facility] Work Phone: MCV (mean corpuscular volume ) determinationOrdered By: Clinton Soares on 09-19-2024 MCV (RBC) [Entitic vol] 92.9 fL 80-94 [facility] Mean corpuscular hemoglobin (MCH) determinationOrdered By: Clinton Soares on 09-19-2024 MCH (RBC) [Entitic mass] 31.1 pg 27.0-32.0 [facility] Platelet countOrdered By: Buzz Soares on 06-16-2025 Platelets (Bld) [#/Vol] 297 10*3/uL 150-450 [facility] RBC Auto (Bld) [#/Vol]Ordere d By: Clinton Soares on 09-19-2024 RBC (Bld) [#/Vol] 4.76 10*6/uL 4.6-6.2 [facility] White blood cell (WBC) count Ordered By: Clinton Soares on 09-19-2024 WBC (Bld) [#/Vol] 7.7 10*3/uL 4.4-11.0 [facility] 12 Lead EKGon 09-18-2024 12 Lead EKG Normal [facility] Absolute lymphocyte countOrd ered By: Saúl Aguilar on 09-18-2024 Lymphocytes Auto (Unsp spec) [#/Vol] 2.05 10*3/uL 0.83-4.51 [facility] Anion gap in Serum or Plasma Ordered By: Saúl Aguilar on 09-18-2024 Anion gap [Moles/Vol] 12 mmol/L 08-18 [facility] Automated lymphocyte count a s percentage of total leukocytesOrdered By: Saúl Aguilar on 09-18-2024 Lymphocytes/100 WBC Auto (Unsp spec) 27.0 % - [facility] BUN/creatinine ratioOrdered By: Saúl Aguilar on 09-18-2024 Urea nitrogen/Creatinine [Mass ratio] 16.5 mg/mg - [facility] Basic Metabolic Profile (BMP )on 09-18-2024 BUN/CRE 16.5 RATIO Normal - [facility] Comment on above: Performed By: #### L 500.2500, L503.2345 ####[facility] [address] [place], [address] Calcium [Mass/Vol] 9.3 mg/dL Normal 7.6-11.0 [facility] Comment on above: Performed By: #### L 500.2500, L503.7505 ####[facility] [address] [place], [address] Chloride [Moles/Vol] 105 mmol/L Normal 98-108 [facility] Comment on above: Performed By: #### L 500.2500, L503.7505 ####[facility] [address] [place], [address] CO2 [Moles/Vol] 22.3 mmol/L Normal 21.0-32.0 [facility] Comment on above: Performed By: #### L 500.2500, L503.7505 ####[facility] [address] [place], [address] Creatinine [Mass/Vol] 1.01 mg/dL Normal 0.70-1.20 [facility] Comment on above: Performed By: #### L 500.2500, L503.7505 ####[facility] [address] [place], [address] GAP 12 Normal 5-15 [facility] Comment on above: Performed By: #### L 500.2500, L503.7505 ####[facility] [address] [place], [address] GFR/1.73 sq M.predicted among non-blacks MDRD (S/P/Bld) [Vol rate/Area] 83 mL/min/{1.73_m2} Normal >60 [facility] Comment on above: Result Comment: mL/m in/1.73m2 CKD-EPI Creatinine Equation (2020) Performed By: #### L 500.2500, L503.7505 ####[facility] [address] [place], [address] Glucose [Mass/Vol] 184 mg/dL High 70-99 [facility] Comment on above: Performed By: #### L 500.2500, L503.7505 ####[facility] [facility] [address] [place], [address] Potassium [Moles/Vol] 5.0 mmol/L Normal 3.3-5.1 [facility] Comment on above: Result Comment: Hemo lysis present, Results??could be affected.?? Performed By: #### L 500.2500, L503.7505 ####[facility] [address] [place], [address] Sodium [Moles/Vol] 139 mmol/L Normal 133-145 [facility] Comment on above: Performed By: #### L 500.2500, L503.7505 ####[facility] [address] [place], [address] Urea nitrogen [Mass/Vol] 17 mg/dL Normal 4-19 [facility] Comment on above: Performed By: #### L 500.2500, L503.7505 ####[facility] [address] [place], [address] Basophil percentageOrdered B y: Saúl Aguilar on 09-18-2024 Basophils/100 WBC (Bld) 0.4 % 0-1 [facility] Bedside Glucoseon 09-18-2024 FINGERSTICK GLU 327 mg/dL High 74-106 [facility] Comment on above: Result Comment: SNEHA GEMENT OF PATIENT CARE PER NURSING PROTOCOL Performed By: #### L 501.080 ####[facility] [address] [place], [address] FINGERSTICK GLU 207 mg/dL High 74-106 [facility] Comment on above: Result Comment: SNEHA GEMENT OF PATIENT CARE PER NURSING PROTOCOL Performed By: #### L 501.080 ####[facility] [address] [place], [address] CBC W/Diff, Automatedon 09-04 Absolute Lymph 2.05 X10 3/uL Normal 0.83-4.51 [facility] Comment on above: Performed By: #### L 501.4021, L100.0100 ####[facility] [address] [place], [address] Absolute Neut 4.7 X10 3/uL Normal 2.0-7.7 [facility] Comment on above: Performed By: #### L 501.4021, L100.0100 ####[facility] [address] [place], [address] Basophils/100 WBC (Bld) 0.4 % Normal 0-1 [facility] Comment on above: Performed By: #### L 501.4021, L100.0100 ####[facility] [address] [place], [address] Eosinophils/100 WBC (Bld) 3.7 % Normal 0-5 [facility] Comment on above: Performed By: #### L 501.4021, L100.0100 ####[facility] [address] [place], [address] Erythrocyte distribution width (RBC) [Ratio] 12.9 % Normal 11.6-14.6 [facility] Comment on above: Performed By: #### L 501.4021, L100.0100 ####[facility] [address] [place], [address] Hematocrit (Bld) [Volume fraction] 44.4 % Normal 40-54 [facility] Comment on above: Performed By: #### L 501.4021, L100.0100 ####[facility] [address] [place], [address] Hemoglobin (Bld) [Mass/Vol] 14.8 g/dL Normal 13.0-16.5 [facility] Comment on above: Performed By: #### L 501.4021, L100.0100 ####[facility] [address] [place], [address] IG% 0.300 Normal 0.0-0.9 [facility] Comment on above: Result Comment: IG% - Immature Granulocytes (promyelocytes, myelocytes andmetamyelocytes) > 1% indicates that a LEFT SHIFT is Present. Performed By: #### L 501.4021, L100.0100 ####[facility] [address] [place], [address] Lymphocytes/100 WBC (Bld) 27.0 % Normal 19-41 [facility] Comment on above: Performed By: #### L 501.4021, L100.0100 ####[facility] [address] [place], [address] MCH (RBC) [Entitic mass] 31.9 pg Normal 27.0-32.0 [facility] Comment on above: Performed By: #### L 501.4021, L100.0100 ####[facility] [address] [place], [address] MCHC (RBC) [Mass/Vol] 33.3 g/dL Normal 32-36 [facility] Comment on above: Performed By: #### L 501.4021, L100.0100 ####[facility] [address] [place], [address] MCV (RBC) [Entitic vol] 95.7 fL High 80-94 [facility] Comment on above: Performed By: #### L 501.4021, L100.0100 ####[facility] [address] [place], [address] Monocytes/100 WBC (Bld) 6.7 % Normal 0-10 [facility] Comment on above: Performed By: #### L 501.4021, L100.0100 ####[facility] [address] [place], [address] Neutrophils/100 WBC (Bld) 61.9 % Normal 47-70 [facility] Comment on above: Performed By: #### L 501.4021, L100.0100 ####[facility] [address] [place], [address] Nucleated RBC (Bld) [#/Vol] 0 10*3/uL Normal 0-5 [facility] Comment on above: Performed By: #### L 501.4021, L100.0100 ####[facility] [address] [place], [address] Platelet mean volume (Bld) [Entitic vol] 9.5 fL Normal 6.2-12.0 [facility] Comment on above: Performed By: #### L 501.4021, L100.0100 ####[facility] [address] [place], [address] Platelets (Bld) [#/Vol] 276 10*3/uL Normal 150-450 [facility] Comment on above: Performed By: #### L 501.4021, L100.0100 ####[facility] [address] [place], [address] RBC (Bld) [#/Vol] 4.64 10*6/uL Normal 4.6-6.2 [facility] Comment on above: Performed By: #### L 501.4021, L100.0100 ####[facility] [address] [place], [address] RDW SD 45.1 fl High 35.1-43.9 [facility] Comment on above: Performed By: #### L 501.4021, L100.0100 ####[facility] [address] [place], [address] WBC (Bld) [#/Vol] 7.6 10*3/uL Normal 4.4-11.0 [facility] Comment on above: Performed By: #### L 501.4021, L100.0100 ####[facility] [address] [place], [address] Carbon dioxide, total [Moles /volume] in Central venous bloodOrdered By: Saúl Aguilar on 06-15-2025 CO2 [Moles/Vol] 22.3 mmol/L 21.0-32.0 [facility] Chest 1 View (Portable)on Chest 1 View (Portable) Normal [facility] Chloride assayOrdered By: Chacho Aguilar on 09-18-2024 Chloride [Moles/Vol] 105 mmol/L 98-108 [facility] Echo, Limited Studyon 2024 Echo, Limited [facility] on 09-18-2024 Emergency Department Summary Normal [facility] Eosinophil percentageOrdered By: Saúl Aguilar on 09-18-2024 Eosinophils/100 WBC (Bld) 3.7 % 0-5 [facility] Erythrocyte distribution wid th ratioOrdered By: Saúl Aguilar on 09-18-2024 Erythrocyte distribution width (RBC) [Ratio] 12.9 % 11.6-14.6 [facility] Erythrocyte distribution wid th standard deviationOrdered By: Saúl Aguilar on 09-18-2024 Erythrocyte distribution width (RBC) [Ratio] 45.1 fl High 35.1-43.9 [facility] Glomerular filtration rate ( GFR) estimation/1.73 sq m using serum, plasma, or whole bOrdered By: Saúl Aguilar on 09-18-2024 GFR/1.73 sq M.predicted among non-blacks MDRD (S/P/Bld) [Vol rate/Area] 83 mL/min/{1.73_m2} >60 [facility] H AND P Exam - Hospitaliston 09-18-2024 H&P Exam - Hospitalist Normal [facility] Hematocrit Auto (Bld) [Volum e fraction]Ordered By: Saúl Aguilar on 09-18-2024 Hematocrit (Bld) [Volume fraction] 44.4 % 40-54 [facility] Hemoglobin A1con 09-18-2024 HbA1c (Bld) [Mass fraction] 9.9 % High <=5.6 [facility] Comment on above: Result Comment: Norm al < 5.7 % Prediabetic 5.7 - 6.4 % Diabetic >or= 6.5 % Please note range changes. Performed By: #### L 501.9987 ####[facility] [address] [place], [place], [address] Hemoglobin A1c percentageOrd ered By: Clinton Soares on 09-18-2024 HbA1c (Bld) [Mass fraction] 9.9 % High <5.7 [facility] Hemoglobin measurementOrdere d By: Saúl Aguilar on 09-18-2024 Hemoglobin (Bld) [Mass/Vol] 14.8 g/dL 13.0-16.5 [facility] Immature granulocytes/100 WB C Auto (Bld)Ordered By: Saúl Aguilar on 09-18-2024 Immature granulocytes/100 WBC (Bld) 0.300 % 0.0-0.9 [facility] L499.0042on 09-18-2024 Trop T High Sen 62 ng/L Invalid Interpretation Code <=22 [facility] Comment on above: Result Comment: Crit ical Result(s) Called at: 09/18/2024-01:23 by: Nesha Rodriguez.??Results read back by same. Performed By: #### L 499.0042 ####[facility] [address] [place], [place], [address] L499.0043on 09-18-2024 Trop T High Sen 64 ng/L Invalid Interpretation Code <=22 [facility] Comment on above: Result Comment: Crit ical Result(s) Called at: 09/18/2024-11:33 by: Nesha Haider.??Results read back by same. Performed By: #### L 499.0043 ####[facility] [address] [place], [address] L501.4021on 09-18-2024 Trop T High Sen 64 ng/L Invalid Interpretation Code <=22 [facility] Comment on above: Result Comment: Hemo lysis present, Results??could be affected.??Critical Result(s) Called at: 09/18/2024-11:33 by: Nesha Rodriguez.??Results read back by same. Performed By: #### L 501.4021, L100.0100 ####[facility] [address] [place], [address] L503.7505on 09-18-2024 Natriuretic peptide B (Bld) [Mass/Vol] 2552 pg/mL High <=900 [facility] Comment on above: Result Comment: Hear t Failure Unlikely: < 300 pg/mLHeart Failure Likely< 50 Years: > 450 pg/mL50-75 Years: > 900 pg/mL>75 Years: > 1800 pg/mL Performed By: #### L 500.2500, L503.7505 ####[facility] [address] [place], [address] MCV (mean corpuscular volume ) determinationOrdered By: Saúl Aguilar on 09-18-2024 MCV (RBC) [Entitic vol] 95.7 fL High 80-94 [facility] Mean corpuscular hemoglobin (MCH) determinationOrdered By: Saúl Aguilar on 09-18-2024 MCH (RBC) [Entitic mass] 31.9 pg 27.0-32.0 [facility] Monocyte percentageOrdered B y: Saúl Aguilar on 09-18-2024 Monocytes/100 WBC (Bld) 6.7 % 0-10 [facility] Natriuretic peptide.B prohor parris N-Terminal [Mass/volume] in Serum or PlasmaOrdered By: Saúl Aguilar on 09-18-2024 Natriuretic peptide.B prohormone N-Terminal [Mass/Vol] 2552 pg/mL High <900 [facility] Neutrophil percentageOrdered By: Saúl Aguilar on 09-18-2024 Neutrophils/100 WBC (Bld) 61.9 % 47-70 [facility] Platelet countOrdered By: Chacho Aguilar on 09-18-2024 Platelets (Bld) [#/Vol] 276 10*3/uL 150-450 [facility] Potassium measurement (mass/ volume)Ordered By: Saúl Aguilar on 09-18-2024 Potassium (Unsp spec) [Mass/Vol] 5.0 mmol/L 3.3-5.1 [facility] RBC Auto (Bld) [#/Vol]Ordere d By: Saúl Aguilar on 09-18-2024 RBC (Bld) [#/Vol] 4.64 10*6/uL 4.6-6.2 [facility] Serum creatinine measurement (mass/volume)Ordered By: Saúl Aguilar on 09-18-2024 Creatinine [Mass/Vol] 1.01 mg/dL 0.70-1.20 [facility] Serum glucose measurement (m ass/volume)Ordered By: Saúl Aguilar on 09-18-2024 Glucose [Mass/Vol] 184 mg/dL High 70-99 [facility] Serum or plasma calcium brenda urement (mass/volume)Ordered By: Saúl Aguilar on 09-18-2024 Calcium [Mass/Vol] 9.3 mg/dL 7.6-11.0 [facility] Serum or plasma urea nitroge n measurement (mass/volume)Ordered By: Saúl Aguilar on 09-18-2024 Urea nitrogen [Mass/Vol] 17 mg/dL 4-19 [facility] Sodium levelOrdered By: Saúl Aguilar on 09-18-2024 Sodium [Moles/Vol] 139 mmol/L 133-145 [facility] Troponin T.cardiac [Mass/vol ume] in Serum or Plasma by High sensitivity methodOrdered By: Saúl Aguilar on 09-18-2024 Troponin T.cardiac High sensitivity method [Mass/Vol] 64 ng/L High <22 [facility] Troponin T.cardiac High sensitivity method [Mass/Vol] 62 ng/L High <22 [facility] Troponin T.cardiac High sensitivity method [Mass/Vol] 64 ng/L High <22 [facility] White blood cell (WBC) count Ordered By: Saúl Aguilar on 09-18-2024 WBC (Bld) [#/Vol] 7.6 10*3/uL 4.4-11.0 [facility] Arterial study reportOrdered By: Saúl Flowers on 09-08-2024 Noninvasive arteriosclerosis study report [facility] Work Phone: [phone] Carotid Duplex Ultrasoundon 09-08-2024 Carotid Duplex Ultrasound Normal [facility] Duplex ultrasound of carotid artery reportOrdered By: Saúl Flowers on 09-08-2024 Study report [facility] Work Phone: Lower Ext Art Exam w/o Exerc zachary 09-08-2024 Lower Ext Art Exam w/o Exercis Normal [facility] Internal Medicine Office Vis iton 08-02-2024 Internal Medicine Office Visit Normal [facility] No Panel InformationOrdered By: Xiang Joaquin on 08-02-2024 12.5 % High 4.2-6.3 [facility] L499.0043on 07-30-2024 Trop T High Sen Normal <=22 [facility] Comment on above: Result Comment: Canc elled via OM: Order cancelled - Patient discharged Performed By: #### L 499.0043 ####[facility] [address] [place], [place], [address] Absolute lymphocyte countOrd ered By: ED PROVIDER on 07-29-2024 Lymphocytes Auto (Unsp spec) [#/Vol] 2.79 10*3/uL 0.83-4.51 [facility] Anion gap in Serum or Plasma Ordered By: Lawson Castellon on 07-29-2024 Anion gap [Moles/Vol] 16 mmol/L High 5-15 [facility] Automated lymphocyte count a s percentage of total leukocytesOrdered By: ED PROVIDER on 07-29-2024 Lymphocytes/100 WBC Auto (Unsp spec) 37.4 % 19-41 [facility] BUN/creatinine ratioOrdered By: Lawson Castellon on 07-29-2024 Urea nitrogen/Creatinine [Mass ratio] 20.7 mg/mg High 10-20 [facility] Basic Metabolic Profile (BMP )on 07-29-2024 BUN/CRE 20.7 RATIO High 10-20 [facility] Comment on above: Performed By: #### L 501.4021, L500.2500, L100.0100 ####[facility] [address] [place], [address] Calcium [Mass/Vol] 9.3 mg/dL Normal 7.6-11.0 [facility] Comment on above: Performed By: #### L 501.4021, L500.2500, L100.0100 ####[facility] [address] [place], [address] Chloride [Moles/Vol] 99 mmol/L Normal 98-108 [facility] Comment on above: Performed By: #### L 501.4021, L500.2500, L100.0100 ####[facility] [address] [place], [address] CO2 [Moles/Vol] 19.8 mmol/L Low 21.0-32.0 [facility] Comment on above: Performed By: #### L 501.4021, L500.2500, L100.0100 ####[facility] [address] [place], [address] Creatinine [Mass/Vol] 1.11 mg/dL Normal 0.70-1.20 [facility] Comment on above: Performed By: #### L 501.4021, L500.2500, L100.0100 ####[facility] [address] [place], [address] ECRCL 71.61 ml/min Normal 50-250 [facility] Comment on above: Performed By: #### L 501.4021, L500.2500, L100.0100 ####[facility] [address] [place], [address] GAP 16 High 5-15 [facility] Comment on above: Performed By: #### L 501.4021, L500.2500, L100.0100 ####[facility] [address] [place], [address] GFR/1.73 sq M.predicted among non-blacks MDRD (S/P/Bld) [Vol rate/Area] 74 mL/min/{1.73_m2} Normal >60 [facility] Comment on above: Result Comment: mL/m in/1.73m2 CKD-EPI Creatinine Equation (2020) Performed By: #### L 501.4021, L500.2500, L100.0100 ####[facility] [address] [place], [address] Glucose [Mass/Vol] 400 mg/dL High 70-99 [facility] Comment on above: Performed By: #### L 501.4021, L500.2500, L100.0100 ####[facility] [address] [place], [address] Potassium [Moles/Vol] 4.0 mmol/L Normal 3.3-5.1 [facility] Comment on above: Result Comment: Hemo lysis present, Results??could be affected.?? Performed By: #### L 501.4021, L500.2500, L100.0100 ####[facility] [address] [place], [address] Sodium [Moles/Vol] 134 mmol/L Normal 133-145 [facility] Comment on above: Performed By: #### L 501.4021, L500.2500, L100.0100 ####[facility] [address] [place], [address] Urea nitrogen [Mass/Vol] 23 mg/dL High 4-19 [facility] Comment on above: Performed By: #### L 501.4021, L500.2500, L100.0100 ####[facility] [address] [place], [address] Basophil percentageOrdered B y: ED PROVIDER on 07-29-2024 Basophils/100 WBC (Bld) 0.3 % 0-1 [facility] CBC W/Diff, Automatedon 07-06 Absolute Lymph 2.79 X10 3/uL Normal 0.83-4.51 [facility] Comment on above: Performed By: #### L 501.4021, L500.2500, L100.0100 ####[facility] [address] [place], [address] Absolute Neut 4.0 X10 3/uL Normal 2.0-7.7 [facility] Comment on above: Performed By: #### L 501.4021, L500.2500, L100.0100 ####[facility] [address] [place], [address] Basophils/100 WBC (Bld) 0.3 % Normal 0-1 [facility] Comment on above: Performed By: #### L 501.4021, L500.2500, L100.0100 ####[facility] [address] [place], [address] Eosinophils/100 WBC (Bld) 2.5 % Normal 0-5 [facility] Comment on above: Performed By: #### L 501.4021, L500.2500, L100.0100 ####[facility] [address] [place], [address] Erythrocyte distribution width (RBC) [Ratio] 12.7 % Normal 11.6-14.6 [facility] Comment on above: Performed By: #### L 501.4021, L500.2500, L100.0100 ####[facility] [address] [place], [address] Hematocrit (Bld) [Volume fraction] 44.1 % Normal 40-54 [facility] Comment on above: Performed By: #### L 501.4021, L500.2500, L100.0100 ####[facility] [address] [place], [address] Hemoglobin (Bld) [Mass/Vol] 15.6 g/dL Normal 13.0-16.5 [facility] Comment on above: Performed By: #### L 501.4021, L500.2500, L100.0100 ####[facility] [address] [place], [address] IG% 0.100 Normal 0.0-0.9 [facility] Comment on above: Result Comment: IG% - Immature Granulocytes (promyelocytes, myelocytes andmetamyelocytes) > 1% indicates that a LEFT SHIFT is Present. Performed By: #### L 501.4021, L500.2500, L100.0100 ####[facility] [address] [place], [address] Lymphocytes/100 WBC (Bld) 37.4 % Normal 19-41 [facility] Comment on above: Performed By: #### L 501.4021, L500.2500, L100.0100 ####[facility] [address] [place], [address] MCH (RBC) [Entitic mass] 32.2 pg High 27.0-32.0 [facility] Comment on above: Performed By: #### L 501.4021, L500.2500, L100.0100 ####[facility] [address] [place], [address] MCHC (RBC) [Mass/Vol] 35.4 g/dL Normal 32-36 [facility] Comment on above: Performed By: #### L 501.4021, L500.2500, L100.0100 ####[facility] [address] [place], [address] MCV (RBC) [Entitic vol] 90.9 fL Normal 80-94 [facility] Comment on above: Performed By: #### L 501.4021, L500.2500, L100.0100 ####[facility] [address] [place], [address] Monocytes/100 WBC (Bld) 6.6 % Normal 0-10 [facility] Comment on above: Performed By: #### L 501.4021, L500.2500, L100.0100 ####[facility] [address] [place], [address] Neutrophils/100 WBC (Bld) 53.1 % Normal 47-70 [facility] Comment on above: Performed By: #### L 501.4021, L500.2500, L100.0100 ####[facility] [address] [place], [address] Nucleated RBC (Bld) [#/Vol] 0 10*3/uL Normal 0-5 [facility] Comment on above: Performed By: #### L 501.4021, L500.2500, L100.0100 ####[facility] [address] [place], [address] Platelet mean volume (Bld) [Entitic vol] 10.3 fL Normal 6.2-12.0 [facility] Comment on above: Performed By: #### L 501.4021, L500.2500, L100.0100 ####[facility] [address] [place], [address] Platelets (Bld) [#/Vol] 275 10*3/uL Normal 150-450 [facility] Comment on above: Performed By: #### L 501.4021, L500.2500, L100.0100 ####[facility] [address] [place], [address] RBC (Bld) [#/Vol] 4.85 10*6/uL Normal 4.6-6.2 [facility] Comment on above: Performed By: #### L 501.4021, L500.2500, L100.0100 ####[facility] [address] [place], [address] RDW SD 41.7 fl Normal 35.1-43.9 [facility] Comment on above: Performed By: #### L 501.4021, L500.2500, L100.0100 ####[facility] [address] [place], [address] WBC (Bld) [#/Vol] 7.5 10*3/uL Normal 4.4-11.0 [facility] Comment on above: Performed By: #### L 501.4021, L500.2500, L100.0100 ####[facility] [address] [place], [address] Carbon dioxide, total [Moles /volume] in Central venous bloodOrdered By: Lawson Castellon on 07-29-2024 CO2 [Moles/Vol] 19.8 mmol/L Low 21.0-32.0 [facility] Chest 1 View (Portable)on Chest 1 View (Portable) Normal [facility] Chloride assayOrdered By: Isael Castellon on 07-29-2024 Chloride [Moles/Vol] 99 mmol/L 98-108 [facility] Emergency Department Summary on 07-29-2024 Emergency Department Summary Normal [facility] Eosinophil percentageOrdered By: ED PROVIDER on 07-29-2024 Eosinophils/100 WBC (Bld) 2.5 % 0-5 [facility] Erythrocyte distribution wid th ratioOrdered By: ED PROVIDER on 07-29-2024 Erythrocyte distribution width (RBC) [Ratio] 12.7 % 11.6-14.6 [facility] Erythrocyte distribution wid th standard deviationOrdered By: ED PROVIDER on 07-29-2024 Erythrocyte distribution width (RBC) [Ratio] 41.7 fl 35.1-43.9 [facility] Glomerular filtration rate ( GFR) estimation/1.73 sq m using serum, plasma, or whole bOrdered By: Lawson Castellon on 07-29-2024 GFR/1.73 sq M.predicted among non-blacks MDRD (S/P/Bld) [Vol rate/Area] 74 mL/min/{1.73_m2} >60 [facility] Hematocrit Auto (Bld) [Volum e fraction]Ordered By: ED PROVIDER on 07-29-2024 Hematocrit (Bld) [Volume fraction] 44.1 % 40-54 [facility] Hemoglobin measurementOrdere d By: ED PROVIDER on 07-29-2024 Hemoglobin (Bld) [Mass/Vol] 15.6 g/dL 13.0-16.5 [facility] Immature granulocytes/100 WB C Auto (Bld)Ordered By: ED PROVIDER on 07-29-2024 Immature granulocytes/100 WBC (Bld) 0.100 % 0.0-0.9 [facility] L499.0042on 07-29-2024 Trop T High Sen 27 ng/L High <=22 [facility] Comment on above: Performed By: #### L 499.0042 ####[facility] [address] [place], [address] L501.4021on 07-29-2024 Trop T High Sen 22 ng/L Normal <=22 [facility] Comment on above: Performed By: #### L 501.4021, L500.2500, L100.0100 ####[facility] [address] [place], [address] MCV (mean corpuscular volume ) determinationOrdered By: ED PROVIDER on 07-29-2024 MCV (RBC) [Entitic vol] 90.9 fL 80-94 [facility] Mean corpuscular hemoglobin (MCH) determinationOrdered By: ED PROVIDER on 07-29-2024 MCH (RBC) [Entitic mass] 32.2 pg High 27.0-32.0 [facility] Monocyte percentageOrdered B y: ED PROVIDER on 07-29-2024 Monocytes/100 WBC (Bld) 6.6 % 0-10 [facility] Neutrophil percentageOrdered By: ED PROVIDER on 07-29-2024 Neutrophils/100 WBC (Bld) 53.1 % 47-70 [facility] Platelet countOrdered By: ED PROVIDER on 07-29-2024 Platelets (Bld) [#/Vol] 275 10*3/uL 150-450 [facility] Potassium measurement (mass/ volume)Ordered By: Lawson Castellon on 07-29-2024 Potassium (Unsp spec) [Mass/Vol] 4.0 mmol/L 3.3-5.1 [facility] RBC Auto (Bld) [#/Vol]Ordere d By: ED PROVIDER on 07-29-2024 RBC (Bld) [#/Vol] 4.85 10*6/uL 4.6-6.2 [facility] Serum creatinine measurement (mass/volume)Ordered By: Lawson Castellon on 07-29-2024 Creatinine [Mass/Vol] 1.11 mg/dL 0.70-1.20 [facility] Serum glucose measurement (m ass/volume)Ordered By: Lawson Castellon on 07-29-2024 Glucose [Mass/Vol] 400 mg/dL High 70-99 [facility] Serum or plasma calcium brenda urement (mass/volume)Ordered By: Lawson Castellon on 07-29-2024 Calcium [Mass/Vol] 9.3 mg/dL 7.6-11.0 [facility] Serum or plasma urea nitroge n measurement (mass/volume)Ordered By: Lawson Castellon on 07-29-2024 Urea nitrogen [Mass/Vol] 23 mg/dL High - [facility] Sodium levelOrdered By: Lawson Castellon on 07-29-2024 Sodium [Moles/Vol] 134 mmol/L 133-145 [facility] Troponin T.cardiac [Mass/vol ume] in Serum or Plasma by High sensitivity methodOrdered By: Lawson Castellon on 07-29-2024 Troponin T.cardiac High sensitivity method [Mass/Vol] 27 ng/L High <22 [facility] Troponin T.cardiac High sensitivity method [Mass/Vol] 22 ng/L <22 [facility] White blood cell (WBC) count Ordered By: ED PROVIDER on 07-29-2024 WBC (Bld) [#/Vol] 7.5 10*3/uL 4.4-11.0 [facility] MR/BMS.BVSon 07-14-2024 MR/BMS.BVS Normal [facility] Cardiology Visit Reporton Cardiology Visit Report Normal [facility] Basic Metabolic Profile (BMP )on 06-26-2024 BUN Normal - [facility] Comment on above: Result Comment: Canc elled via OM: Order cancelled - Patient discharged Performed By: #### L 500.2500, L100.0500 ####[facility] [address] [place], [address] BUN/CRE Normal - [facility] Comment on above: Result Comment: Canc elled via OM: Order cancelled - Patient discharged Performed By: #### L 500.2500, L100.0500 ####[facility] [address] [place], [address] Calcium Normal 7.6-11.0 [facility] Comment on above: Result Comment: Canc elled via OM: Order cancelled - Patient discharged Performed By: #### L 500.2500, L100.0500 ####[facility] [address] [place], [address] CL Normal 98-108 [facility] Comment on above: Result Comment: Canc elled via OM: Order cancelled - Patient discharged Performed By: #### L 500.2500, L100.0500 ####[facility] [address] [place], [address] CO2 Normal 21.0-32.0 [facility] Comment on above: Result Comment: Canc elled via OM: Order cancelled - Patient discharged Performed By: #### L 500.2500, L100.0500 ####[facility] [address] [place], [address] CREAT,SERUM Normal 0.70-1.20 [facility] Comment on above: Result Comment: Canc elled via OM: Order cancelled - Patient discharged Performed By: #### L 500.2500, L100.0500 ####[facility] [address] [place], [address] eGFR Normal >60 [facility] Comment on above: Result Comment: Canc elled via OM: Order cancelled - Patient discharged Performed By: #### L 500.2500, L100.0500 ####[facility] [address] [place], [address] GAP Normal 5-15 [facility] Comment on above: Result Comment: Canc elled via OM: Order cancelled - Patient discharged Performed By: #### L 500.2500, L100.0500 ####[facility] [address] [place], [address] GLU Normal 70-99 [facility] Comment on above: Result Comment: Canc elled via OM: Order cancelled - Patient discharged Performed By: #### L 500.2500, L100.0500 ####[facility] [address] [place], [address] Potassium Normal 3.3-5.1 [facility] Comment on above: Result Comment: Canc elled via OM: Order cancelled - Patient discharged Performed By: #### L 500.2500, L100.0500 ####[facility] [address] [place], [address] Basic Metabolic Profile (BMP) Normal 133-145 [facility] Comment on above: Result Comment: Canc elled via OM: Order cancelled - Patient discharged Performed By: #### L 500.2500, L100.0500 ####[facility] [address] [place], [address] CBC-Complete Blood Cnt No Di ffon 06-26-2024 HCT Normal 40-54 [facility] Comment on above: Result Comment: Canc elled via OM: Order cancelled - Patient discharged Performed By: #### L 500.2500, L100.0500 ####[facility] [address] [place], [address] HGB Normal 13.0-16.5 [facility] Comment on above: Result Comment: Canc elled via OM: Order cancelled - Patient discharged Performed By: #### L 500.2500, L100.0500 ####[facility] [address] [place], [address] MCH Normal 27.0-32.0 [facility] Comment on above: Result Comment: Canc elled via OM: Order cancelled - Patient discharged Performed By: #### L 500.2500, L100.0500 ####[facility] [address] [place], [address] MCHC Normal 32-36 [facility] Comment on above: Result Comment: Canc elled via OM: Order cancelled - Patient discharged Performed By: #### L 500.2500, L100.0500 ####[facility] [address] [place], [address] MCV Normal 80-94 [facility] Comment on above: Result Comment: Canc elled via OM: Order cancelled - Patient discharged Performed By: #### L 500.2500, L100.0500 ####[facility] [address] [place], [address] PLT Normal 150-450 [facility] Comment on above: Result Comment: Canc elled via OM: Order cancelled - Patient discharged Performed By: #### L 500.2500, L100.0500 ####[facility] [address] [place], [address] RBC Normal 4.6-6.2 [facility] Comment on above: Result Comment: Canc elled via OM: Order cancelled - Patient discharged Performed By: #### L 500.2500, L100.0500 ####[facility] [address] [place], [address] RDW CV Normal 11.6-14.6 [facility] Comment on above: Result Comment: Canc elled via OM: Order cancelled - Patient discharged Performed By: #### L 500.2500, L100.0500 ####[facility] [address] [place], [address] RDW SD Normal 35.1-43.9 [facility] Comment on above: Result Comment: Canc elled via OM: Order cancelled - Patient discharged Performed By: #### L 500.2500, L100.0500 ####[facility] [address] [place] [place], [address] WBC Normal 4.4-11.0 [facility] Comment on above: Result Comment: Canc elled via OM: Order cancelled - Patient discharged Performed By: #### L 500.2500, L100.0500 ####[facility] [address] [place], [address] Basic Metabolic Profile (BMP )on 06-25-2024 BUN Normal 4-19 [facility] Comment on above: Result Comment: Canc elled via OM: Order cancelled - Patient discharged Performed By: #### L 500.2500, L100.0500 ####[facility] [address] [place], [address] BUN/CRE Normal 10-20 [facility] Comment on above: Result Comment: Canc elled via OM: Order cancelled - Patient discharged Performed By: #### L 500.2500, L100.0500 ####[facility] [address] [place], [address] Calcium Normal 7.6-11.0 [facility] Comment on above: Result Comment: Canc elled via OM: Order cancelled - Patient discharged Performed By: #### L 500.2500, L100.0500 ####[facility] [address] [place] [place], [address] CL Normal 98-108 [facility] Comment on above: Result Comment: Canc elled via OM: Order cancelled - Patient discharged Performed By: #### L 500.2500, L100.0500 ####[facility] [address] [place], [address] CO2 Normal 21.0-32.0 [facility] Comment on above: Result Comment: Canc elled via OM: Order cancelled - Patient discharged Performed By: #### L 500.2500, L100.0500 ####[facility] [address] [place], [address] CREAT,SERUM Normal 0.70-1.20 [facility] Comment on above: Result Comment: Canc elled via OM: Order cancelled - Patient discharged Performed By: #### L 500.2500, L100.0500 ####[facility] [address] [place], [address] eGFR Normal >60 [facility] Comment on above: Result Comment: Canc elled via OM: Order cancelled - Patient discharged Performed By: #### L 500.2500, L100.0500 ####[facility] [address] [place], [address] GAP Normal 5-15 [facility] Comment on above: Result Comment: Canc elled via OM: Order cancelled - Patient discharged Performed By: #### L 500.2500, L100.0500 ####[facility] [address] [place], [address] GLU Normal 70-99 [facility] Comment on above: Result Comment: Canc elled via OM: Order cancelled - Patient discharged Performed By: #### L 500.2500, L100.0500 ####[facility] [address] [place], [address] Potassium Normal 3.3-5.1 [facility] Comment on above: Result Comment: Canc elled via OM: Order cancelled - Patient discharged Performed By: #### L 500.2500, L100.0500 ####[facility] [address] [place], [address] Basic Metabolic Profile (BMP) Normal 133-145 [facility] Comment on above: Result Comment: Canc elled via OM: Order cancelled - Patient discharged Performed By: #### L 500.2500, L100.0500 ####[facility] [address] [place], [address] CBC-Complete Blood Cnt No Di ffon 06-25-2024 HCT Normal 40-54 [facility] Comment on above: Result Comment: Canc elled via OM: Order cancelled - Patient discharged Performed By: #### L 500.2500, L100.0500 ####[facility] [address] [place], [address] HGB Normal 13.0-16.5 [facility] Comment on above: Result Comment: Canc elled via OM: Order cancelled - Patient discharged Performed By: #### L 500.2500, L100.0500 ####[facility] [address] [place], [address] MCH Normal 27.0-32.0 [facility] Comment on above: Result Comment: Canc elled via OM: Order cancelled - Patient discharged Performed By: #### L 500.2500, L100.0500 ####[facility] [address] [place], [address] MCHC Normal 32-36 [facility] Comment on above: Result Comment: Canc elled via OM: Order cancelled - Patient discharged Performed By: #### L 500.2500, L100.0500 ####[facility] [address] [place], [address] MCV Normal 80-94 [facility] Comment on above: Result Comment: Canc elled via OM: Order cancelled - Patient discharged Performed By: #### L 500.2500, L100.0500 ####[facility] [address] [place], [address] PLT Normal 150-450 [facility] Comment on above: Result Comment: Canc elled via OM: Order cancelled - Patient discharged Performed By: #### L 500.2500, L100.0500 ####[facility] [address] [place], [address] RBC Normal 4.6-6.2 [facility] Comment on above: Result Comment: Canc elled via OM: Order cancelled - Patient discharged Performed By: #### L 500.2500, L100.0500 ####[facility] [address] [place], [address] RDW CV Normal 11.6-14.6 [facility] Comment on above: Result Comment: Canc elled via OM: Order cancelled - Patient discharged Performed By: #### L 500.2500, L100.0500 ####[facility] [address] [place], [address] RDW SD Normal 35.1-43.9 [facility] Comment on above: Result Comment: Canc elled via OM: Order cancelled - Patient discharged Performed By: #### L 500.2500, L100.0500 ####[facility] [address] [place], [address] WBC Normal 4.4-11.0 [facility] Comment on above: Result Comment: Canc elled via OM: Order cancelled - Patient discharged Performed By: #### L 500.2500, L100.0500 ####[facility] [address] [place], [address] Basic Metabolic Profile (BMP )on 06-24-2024 BUN Normal 4-19 [facility] Comment on above: Result Comment: Canc elled via OM: Order cancelled - Patient discharged Performed By: #### L 500.2500, L100.0500 ####[facility] [address] [place], [address] BUN/CRE Normal 10-20 [facility] Comment on above: Result Comment: Canc elled via OM: Order cancelled - Patient discharged Performed By: #### L 500.2500, L100.0500 ####[facility] [address] [place], [address] Calcium Normal 7.6-11.0 [facility] Comment on above: Result Comment: Canc elled via OM: Order cancelled - Patient discharged Performed By: #### L 500.2500, L100.0500 ####[facility] [address] [place], [address] CL Normal 98-108 [facility] Comment on above: Result Comment: Canc elled via OM: Order cancelled - Patient discharged Performed By: #### L 500.2500, L100.0500 ####[facility] [address] [place], [address] CO2 Normal 21.0-32.0 [facility] Comment on above: Result Comment: Canc elled via OM: Order cancelled - Patient discharged Performed By: #### L 500.2500, L100.0500 ####[facility] [address] [place], [address] CREAT,SERUM Normal 0.70-1.20 [facility] Comment on above: Result Comment: Canc elled via OM: Order cancelled - Patient discharged Performed By: #### L 500.2500, L100.0500 ####[facility] [address] [place], [address] eGFR Normal >60 [facility] Comment on above: Result Comment: Canc elled via OM: Order cancelled - Patient discharged Performed By: #### L 500.2500, L100.0500 ####[facility] [address] [place], [address] GAP Normal 5-15 [facility] Comment on above: Result Comment: Canc elled via OM: Order cancelled - Patient discharged Performed By: #### L 500.2500, L100.0500 ####[facility] [address] [place], [address] GLU Normal 70-99 [facility] Comment on above: Result Comment: Canc elled via OM: Order cancelled - Patient discharged Performed By: #### L 500.2500, L100.0500 ####[facility] [address] [place], [address] Potassium Normal 3.3-5.1 [facility] Comment on above: Result Comment: Canc elled via OM: Order cancelled - Patient discharged Performed By: #### L 500.2500, L100.0500 ####[facility] [address] [place], [address] Basic Metabolic Profile (BMP) Normal 133-145 [facility] Comment on above: Result Comment: Canc elled via OM: Order cancelled - Patient discharged Performed By: #### L 500.2500, L100.0500 ####[facility] [address] [place], [address] CBC-Complete Blood Cnt No Di ffon 06-24-2024 HCT Normal 40-54 [facility] Comment on above: Result Comment: Canc elled via OM: Order cancelled - Patient discharged Performed By: #### L 500.2500, L100.0500 ####[facility] [address] [place], [address] HGB Normal 13.0-16.5 [facility] Comment on above: Result Comment: Canc elled via OM: Order cancelled - Patient discharged Performed By: #### L 500.2500, L100.0500 ####[facility] [address] [place], [address] MCH Normal 27.0-32.0 [facility] Comment on above: Result Comment: Canc elled via OM: Order cancelled - Patient discharged Performed By: #### L 500.2500, L100.0500 ####[facility] [address] [place], [address] MCHC Normal 32-36 [facility] Comment on above: Result Comment: Canc elled via OM: Order cancelled - Patient discharged Performed By: #### L 500.2500, L100.0500 ####[facility] [address] [place], [address] MCV Normal 80-94 [facility] Comment on above: Result Comment: Canc elled via OM: Order cancelled - Patient discharged Performed By: #### L 500.2500, L100.0500 ####[facility] [address] [place], [address] PLT Normal 150-450 [facility] Comment on above: Result Comment: Canc elled via OM: Order cancelled - Patient discharged Performed By: #### L 500.2500, L100.0500 ####[facility] [address] [place], [address] RBC Normal 4.6-6.2 [facility] Comment on above: Result Comment: Canc elled via OM: Order cancelled - Patient discharged Performed By: #### L 500.2500, L100.0500 ####[facility] [address] [place], [address] RDW CV Normal 11.6-14.6 [facility] Comment on above: Result Comment: Canc elled via OM: Order cancelled - Patient discharged Performed By: #### L 500.2500, L100.0500 ####[facility] [address] [place], [address] RDW SD Normal 35.1-43.9 [facility] Comment on above: Result Comment: Canc elled via OM: Order cancelled - Patient discharged Performed By: #### L 500.2500, L100.0500 ####[facility] [address] [place], [address] WBC Normal 4.4-11.0 [facility] Comment on above: Result Comment: Canc elled via OM: Order cancelled - Patient discharged Performed By: #### L 500.2500, L100.0500 ####[facility] [address] [place], [address] Basic Metabolic Profile (BMP )on 06-23-2024 BUN Normal 4-19 [facility] Comment on above: Result Comment: Canc elled via OM: Order cancelled - Patient discharged Performed By: #### L 500.2500, L100.0500 ####[facility] [address] [place], [address] BUN/CRE Normal 10-20 [facility] Comment on above: Result Comment: Canc elled via OM: Order cancelled - Patient discharged Performed By: #### L 500.2500, L100.0500 ####[facility] [address] [place], [address] Calcium Normal 7.6-11.0 [facility] Comment on above: Result Comment: Canc elled via OM: Order cancelled - Patient discharged Performed By: #### L 500.2500, L100.0500 ####[facility] [address] [place], [address] CL Normal 98-108 [facility] Comment on above: Result Comment: Canc elled via OM: Order cancelled - Patient discharged Performed By: #### L 500.2500, L100.0500 ####[facility] [address] [place], [address] CO2 Normal 21.0-32.0 [facility] Comment on above: Result Comment: Canc elled via OM: Order cancelled - Patient discharged Performed By: #### L 500.2500, L100.0500 ####[facility] [address] [place], [address] CREAT,SERUM Normal 0.70-1.20 [facility] Comment on above: Result Comment: Canc elled via OM: Order cancelled - Patient discharged Performed By: #### L 500.2500, L100.0500 ####[facility] [address] [place], [address] eGFR Normal >60 [facility] Comment on above: Result Comment: Canc elled via OM: Order cancelled - Patient discharged Performed By: #### L 500.2500, L100.0500 ####[facility] [address] [place], [address] GAP Normal 5-15 [facility] Comment on above: Result Comment: Canc elled via OM: Order cancelled - Patient discharged Performed By: #### L 500.2500, L100.0500 ####[facility] [address] [place], [address] GLU Normal 70-99 [facility] Comment on above: Result Comment: Canc elled via OM: Order cancelled - Patient discharged Performed By: #### L 500.2500, L100.0500 ####[facility] [address] [place], [address] Potassium Normal 3.3-5.1 [facility] Comment on above: Result Comment: Canc elled via OM: Order cancelled - Patient discharged Performed By: #### L 500.2500, L100.0500 ####[facility] [address] [place], [address] Basic Metabolic Profile (BMP) Normal 133-145 [facility] Comment on above: Result Comment: Canc elled via OM: Order cancelled - Patient discharged Performed By: #### L 500.2500, L100.0500 ####[facility] [address] [place], [address] CBC-Complete Blood Cnt No Di ffon 06-23-2024 HCT Normal 40-54 [facility] Comment on above: Result Comment: Canc elled via OM: Order cancelled - Patient discharged Performed By: #### L 500.2500, L100.0500 ####[facility] [address] [place], [address] HGB Normal 13.0-16.5 [facility] Comment on above: Result Comment: Canc elled via OM: Order cancelled - Patient discharged Performed By: #### L 500.2500, L100.0500 ####[facility] [address] [place], [address] MCH Normal 27.0-32.0 [facility] Comment on above: Result Comment: Canc elled via OM: Order cancelled - Patient discharged Performed By: #### L 500.2500, L100.0500 ####[facility] [address] [place], [address] MCHC Normal 32-36 [facility] Comment on above: Result Comment: Canc elled via OM: Order cancelled - Patient discharged Performed By: #### L 500.2500, L100.0500 ####[facility] [address] [place], [address] MCV Normal 80-94 [facility] Comment on above: Result Comment: Canc elled via OM: Order cancelled - Patient discharged Performed By: #### L 500.2500, L100.0500 ####[facility] [address] [place], [address] PLT Normal 150-450 [facility] Comment on above: Result Comment: Canc elled via OM: Order cancelled - Patient discharged Performed By: #### L 500.2500, L100.0500 ####[facility] [address] [place], [address] RBC Normal 4.6-6.2 [facility] Comment on above: Result Comment: Canc elled via OM: Order cancelled - Patient discharged Performed By: #### L 500.2500, L100.0500 ####[facility] [address] [place], [address] RDW CV Normal 11.6-14.6 [facility] Comment on above: Result Comment: Canc elled via OM: Order cancelled - Patient discharged Performed By: #### L 500.2500, L100.0500 ####[facility] [address] [place], [address] RDW SD Normal 35.1-43.9 [facility] Comment on above: Result Comment: Canc elled via OM: Order cancelled - Patient discharged Performed By: #### L 500.2500, L100.0500 ####[facility] [address] [place], [address] WBC Normal 4.4-11.0 [facility] Comment on above: Result Comment: Canc elled via OM: Order cancelled - Patient discharged Performed By: #### L 500.2500, L100.0500 ####[facility] [address] [place], [address] Basic Metabolic Profile (BMP )on 06-22-2024 BUN Normal 4-19 [facility] Comment on above: Result Comment: Canc elled via OM: Order cancelled - Patient discharged Performed By: #### L 100.0500, L500.2500 ####[facility] [address] [place], [address] BUN/CRE Normal 10-20 [facility] Comment on above: Result Comment: Canc elled via OM: Order cancelled - Patient discharged Performed By: #### L 100.0500, L500.2500 ####[facility] [address] [place], [address] Calcium Normal 7.6-11.0 [facility] Comment on above: Result Comment: Canc elled via OM: Order cancelled - Patient discharged Performed By: #### L 100.0500, L500.2500 ####[facility] [address] [place], [address] CL Normal 98-108 [facility] Comment on above: Result Comment: Canc elled via OM: Order cancelled - Patient discharged Performed By: #### L 100.0500, L500.2500 ####[facility] [address] [place], [address] CO2 Normal 21.0-32.0 [facility] Comment on above: Result Comment: Canc elled via OM: Order cancelled - Patient discharged Performed By: #### L 100.0500, L500.2500 ####[facility] [address] [place], [address] CREAT,SERUM Normal 0.70-1.20 [facility] Comment on above: Result Comment: Canc elled via OM: Order cancelled - Patient discharged Performed By: #### L 100.0500, L500.2500 ####[facility] [address] [place], [address] eGFR Normal >60 [facility] Comment on above: Result Comment: Canc elled via OM: Order cancelled - Patient discharged Performed By: #### L 100.0500, L500.2500 ####[facility] [address] [place], [address] GAP Normal 5-15 [facility] Comment on above: Result Comment: Canc elled via OM: Order cancelled - Patient discharged Performed By: #### L 100.0500, L500.2500 ####[facility] [address] [place], [address] GLU Normal 70-99 [facility] Comment on above: Result Comment: Canc elled via OM: Order cancelled - Patient discharged Performed By: #### L 100.0500, L500.2500 ####[facility] [address] [place], [address] Potassium Normal 3.3-5.1 [facility] Comment on above: Result Comment: Canc elled via OM: Order cancelled - Patient discharged Performed By: #### L 100.0500, L500.2500 ####[facility] [address] [place], [address] Basic Metabolic Profile (BMP) Normal 133-145 [facility] Comment on above: Result Comment: Canc elled via OM: Order cancelled - Patient discharged Performed By: #### L 100.0500, L500.2500 ####[facility] [address] [place], [address] CBC-Complete Blood Cnt No Di ffon 06-22-2024 HCT Normal 40-54 [facility] Comment on above: Result Comment: Canc elled via OM: Order cancelled - Patient discharged Performed By: #### L 100.0500, L500.2500 ####[facility] [address] [place], [address] HGB Normal 13.0-16.5 [facility] Comment on above: Result Comment: Canc elled via OM: Order cancelled - Patient discharged Performed By: #### L 100.0500, L500.2500 ####[facility] [address] [place], [address] MCH Normal 27.0-32.0 [facility] Comment on above: Result Comment: Canc elled via OM: Order cancelled - Patient discharged Performed By: #### L 100.0500, L500.2500 ####[facility] [address] [place], [address] MCHC Normal 32-36 [facility] Comment on above: Result Comment: Canc elled via OM: Order cancelled - Patient discharged Performed By: #### L 100.0500, L500.2500 ####[facility] [address] [place], [address] MCV Normal 80-94 [facility] Comment on above: Result Comment: Canc elled via OM: Order cancelled - Patient discharged Performed By: #### L 100.0500, L500.2500 ####[facility] [address] [place], [address] PLT Normal 150-450 [facility] Comment on above: Result Comment: Canc elled via OM: Order cancelled - Patient discharged Performed By: #### L 100.0500, L500.2500 ####[facility] [address] [place], [address] RBC Normal 4.6-6.2 [facility] Comment on above: Result Comment: Canc elled via OM: Order cancelled - Patient discharged Performed By: #### L 100.0500, L500.2500 ####[facility] [address] [place], [address] RDW CV Normal 11.6-14.6 [facility] Comment on above: Result Comment: Canc elled via OM: Order cancelled - Patient discharged Performed By: #### L 100.0500, L500.2500 ####[facility] [address] [place], [address] RDW SD Normal 35.1-43.9 [facility] Comment on above: Result Comment: Canc elled via OM: Order cancelled - Patient discharged Performed By: #### L 100.0500, L500.2500 ####[facility] [address] [place], [address] WBC Normal 4.4-11.0 [facility] Comment on above: Result Comment: Canc elled via OM: Order cancelled - Patient discharged Performed By: #### L 100.0500, L500.2500 ####[facility] [address] [place], [address] Basic Metabolic Profile (BMP )on 06-21-2024 BUN Normal 4-19 [facility] Comment on above: Result Comment: Canc elled via OM: Order cancelled - Patient discharged Performed By: #### L 500.2500, L100.0500 ####[facility] [address] [place], [address] BUN/CRE Normal 10-20 [facility] Comment on above: Result Comment: Canc elled via OM: Order cancelled - Patient discharged Performed By: #### L 500.2500, L100.0500 ####[facility] [address] [place], [address] Calcium Normal 7.6-11.0 [facility] Comment on above: Result Comment: Canc elled via OM: Order cancelled - Patient discharged Performed By: #### L 500.2500, L100.0500 ####[facility] [address] [place], [address] CL Normal 98-108 [facility] Comment on above: Result Comment: Canc elled via OM: Order cancelled - Patient discharged Performed By: #### L 500.2500, L100.0500 ####[facility] [address] [place], [address] CO2 Normal 21.0-32.0 [facility] Comment on above: Result Comment: Canc elled via OM: Order cancelled - Patient discharged Performed By: #### L 500.2500, L100.0500 ####[facility] [address] [place], [address] CREAT,SERUM Normal 0.70-1.20 [facility] Comment on above: Result Comment: Canc elled via OM: Order cancelled - Patient discharged Performed By: #### L 500.2500, L100.0500 ####[facility] [address] [place], [address] eGFR Normal >60 [facility] Comment on above: Result Comment: Canc elled via OM: Order cancelled - Patient discharged Performed By: #### L 500.2500, L100.0500 ####[facility] [address] [place], [address] GAP Normal 5-15 [facility] Comment on above: Result Comment: Canc elled via OM: Order cancelled - Patient discharged Performed By: #### L 500.2500, L100.0500 ####[facility] [address] [place], [address] GLU Normal 70-99 [facility] Comment on above: Result Comment: Canc elled via OM: Order cancelled - Patient discharged Performed By: #### L 500.2500, L100.0500 ####[facility] [address] [place], [address] Potassium Normal 3.3-5.1 [facility] Comment on above: Result Comment: Canc elled via OM: Order cancelled - Patient discharged Performed By: #### L 500.2500, L100.0500 ####[facility] [address] [place], [address] Basic Metabolic Profile (BMP) Normal 133-145 [facility] Comment on above: Result Comment: Canc elled via OM: Order cancelled - Patient discharged Performed By: #### L 500.2500, L100.0500 ####[facility] [address] [place], [address] CBC-Complete Blood Cnt No Di ffon 06-21-2024 HCT Normal 40-54 [facility] Comment on above: Result Comment: Canc elled via OM: Order cancelled - Patient discharged Performed By: #### L 500.2500, L100.0500 ####[facility] [address] [place], [address] HGB Normal 13.0-16.5 [facility] Comment on above: Result Comment: Canc elled via OM: Order cancelled - Patient discharged Performed By: #### L 500.2500, L100.0500 ####[facility] [address] [place], [address] MCH Normal 27.0-32.0 [facility] Comment on above: Result Comment: Canc elled via OM: Order cancelled - Patient discharged Performed By: #### L 500.2500, L100.0500 ####[facility] [address] [place], [address] MCHC Normal 32-36 [facility] Comment on above: Result Comment: Canc elled via OM: Order cancelled - Patient discharged Performed By: #### L 500.2500, L100.0500 ####[facility] [address] [place], [address] MCV Normal 80-94 [facility] Comment on above: Result Comment: Canc elled via OM: Order cancelled - Patient discharged Performed By: #### L 500.2500, L100.0500 ####[facility] [address] [place], [address] PLT Normal 150-450 [facility] Comment on above: Result Comment: Canc elled via OM: Order cancelled - Patient discharged Performed By: #### L 500.2500, L100.0500 ####[facility] [address] [place], [address] RBC Normal 4.6-6.2 [facility] Comment on above: Result Comment: Canc elled via OM: Order cancelled - Patient discharged Performed By: #### L 500.2500, L100.0500 ####[facility] [address] [place], [address] RDW CV Normal 11.6-14.6 [facility] Comment on above: Result Comment: Canc elled via OM: Order cancelled - Patient discharged Performed By: #### L 500.2500, L100.0500 ####[facility] [address] [place], [address] RDW SD Normal 35.1-43.9 [facility] Comment on above: Result Comment: Canc elled via OM: Order cancelled - Patient discharged Performed By: #### L 500.2500, L100.0500 ####[facility] [address] [place], [address] WBC Normal 4.4-11.0 [facility] Comment on above: Result Comment: Canc elled via OM: Order cancelled - Patient discharged Performed By: #### L 500.2500, L100.0500 ####[facility] [address] [place], [address] Anion gap in Serum or Plasma Ordered By: Donna Wolff on 06-20-2024 Anion gap [Moles/Vol] 14 mmol/L 5-15 [facility] BUN/creatinine ratioOrdered By: Donna Wolff on 06-20-2024 Urea nitrogen/Creatinine [Mass ratio] 27.2 mg/mg High - [facility] Basic Metabolic Profile (BMP )on 06-20-2024 BUN/CRE 27.2 RATIO High - [facility] Comment on above: Performed By: #### L 500.2500, L100.0500 ####[facility] [address] [place], [address] Calcium [Mass/Vol] 9.5 mg/dL Normal 7.6-11.0 [facility] Comment on above: Performed By: #### L 500.2500, L100.0500 ####[facility] [address] [place], [address] Chloride [Moles/Vol] 100 mmol/L Normal 98-108 [facility] Comment on above: Performed By: #### L 500.2500, L100.0500 ####[facility] [address] [place], [address] CO2 [Moles/Vol] 24.8 mmol/L Normal 21.0-32.0 [facility] Comment on above: Performed By: #### L 500.2500, L100.0500 ####[facility] [address] [place], [address] Creatinine [Mass/Vol] 1.07 mg/dL Normal 0.70-1.20 [facility] Comment on above: Performed By: #### L 500.2500, L100.0500 ####[facility] [address] [place], [address] ECRCL 74.28 ml/min Normal 50-250 [facility] Comment on above: Performed By: #### L 500.2500, L100.0500 ####[facility] [address] [place], [address] GAP 14 Normal 5-15 [facility] Comment on above: Performed By: #### L 500.2500, L100.0500 ####[facility] [address] [place], [address] GFR/1.73 sq M.predicted among non-blacks MDRD (S/P/Bld) [Vol rate/Area] 77 mL/min/{1.73_m2} Normal >60 [facility] Comment on above: Result Comment: mL/m in/1.73m2 CKD-EPI Creatinine Equation (2020) Performed By: #### L 500.2500, L100.0500 ####[facility] [address] [place], [address] Glucose [Mass/Vol] 110 mg/dL High 70-99 [facility] Comment on above: Performed By: #### L 500.2500, L100.0500 ####[facility] [address] [place], [address] Potassium [Moles/Vol] 3.8 mmol/L Normal 3.3-5.1 [facility] Comment on above: Performed By: #### L 500.2500, L100.0500 ####[facility] [address] [place], [address] Sodium [Moles/Vol] 138 mmol/L Normal 133-145 [facility] Comment on above: Performed By: #### L 500.2500, L100.0500 ####[facility] [address] [place], [address] Urea nitrogen [Mass/Vol] 29 mg/dL High 4-19 [facility] Comment on above: Performed By: #### L 500.2500, L100.0500 ####[facility] [address] [place], [address] Bedside Glucoseon 06-20-2024 FINGERSTICK GLU 127 mg/dL High 74-106 [facility] Comment on above: Result Comment: SNEHA DUNCAN OF PATIENT CARE PER NURSING PROTOCOL Performed By: #### L 501.080 ####[facility] [address] [place], [address] CBC-Complete Blood Cnt No Di ffon 06-20-2024 Erythrocyte distribution width (RBC) [Ratio] 13.0 % Normal 11.6-14.6 [facility] Comment on above: Performed By: #### L 500.2500, L100.0500 ####[facility] [address] [place], [address] Hematocrit (Bld) [Volume fraction] 50.5 % Normal 40-54 [facility] Comment on above: Performed By: #### L 500.2500, L100.0500 ####[facility] [address] [place], [address] Hemoglobin (Bld) [Mass/Vol] 16.8 g/dL High 13.0-16.5 [facility] Comment on above: Performed By: #### L 500.2500, L100.0500 ####[facility] [address] [place], [address] MCH (RBC) [Entitic mass] 30.8 pg Normal 27.0-32.0 [facility] Comment on above: Performed By: #### L 500.2500, L100.0500 ####[facility] [address] [place], [address] MCHC (RBC) [Mass/Vol] 33.3 g/dL Normal 32-36 [facility] Comment on above: Performed By: #### L 500.2500, L100.0500 ####[facility] [address] [place], [address] MCV (RBC) [Entitic vol] 92.5 fL Normal 80-94 [facility] Comment on above: Performed By: #### L 500.2500, L100.0500 ####[facility] [address] [place], [address] Platelet mean volume (Bld) [Entitic vol] 10.1 fL Normal 6.2-12.0 [facility] Comment on above: Performed By: #### L 500.2500, L100.0500 ####[facility] [address] [place], [address] Platelets (Bld) [#/Vol] 295 10*3/uL Normal 150-450 [facility] Comment on above: Performed By: #### L 500.2500, L100.0500 ####[facility] [address] [place], [address] RBC (Bld) [#/Vol] 5.46 10*6/uL Normal 4.6-6.2 [facility] Comment on above: Performed By: #### L 500.2500, L100.0500 ####[facility] [address] [place], [address] RDW SD 43.8 fl Normal 35.1-43.9 [facility] Comment on above: Performed By: #### L 500.2500, L100.0500 ####[facility] [address] [place], [address] WBC (Bld) [#/Vol] 14.2 10*3/uL High 4.4-11.0 [facility] Comment on above: Performed By: #### L 500.2500, L100.0500 ####[facility] [address] [place], [address] Carbon dioxide, total [Moles /volume] in Central venous bloodOrdered By: Donna Wolff on 06-20-2024 CO2 [Moles/Vol] 24.8 mmol/L 21.0-32.0 [facility] Chloride assayOrdered By: Nilson Wolff on 06-20-2024 Chloride [Moles/Vol] 100 mmol/L 98-108 [facility] Discharge Instructionon 06-04 Discharge Instruction Normal [facility] Erythrocyte distribution wid th ratioOrdered By: Donna Wolff on 06-20-2024 Erythrocyte distribution width (RBC) [Ratio] 13.0 % 11.6-14.6 [facility] Erythrocyte distribution wid th standard deviationOrdered By: Donna Wolff on 06-20-2024 Erythrocyte distribution width (RBC) [Ratio] 43.8 fl 35.1-43.9 [facility] Glomerular filtration rate ( GFR) estimation/1.73 sq m using serum, plasma, or whole bOrdered By: Donna Wolff on 06-20-2024 GFR/1.73 sq M.predicted among non-blacks MDRD (S/P/Bld) [Vol rate/Area] 77 mL/min/{1.73_m2} >60 [facility] Glucose measurement at [facility] deOrdered By: Donna Wolff on 06-20-2024 Glucose [Mass/Vol] 127 mg/dL High 74-106 [facility] Hematocrit Auto (Bld) [Volum e fraction]Ordered By: Donna Wolff on 06-20-2024 Hematocrit (Bld) [Volume fraction] 50.5 % 40-54 [facility] Hemoglobin measurementOrdere d By: Donna Wolff on 06-20-2024 Hemoglobin (Bld) [Mass/Vol] 16.8 g/dL High 13.0-16.5 [facility] MCV (mean corpuscular volume ) determinationOrdered By: Donna Wolff on 06-20-2024 MCV (RBC) [Entitic vol] 92.5 fL 80-94 [facility] Mean corpuscular hemoglobin (MCH) determinationOrdered By: Donna Wolff on 06-20-2024 MCH (RBC) [Entitic mass] 30.8 pg 27.0-32.0 [facility] Platelet countOrdered By: Nilson Wolff on 06-20-2024 Platelets (Bld) [#/Vol] 295 10*3/uL 150-450 [facility] Potassium measurement (mass/ volume)Ordered By: Donna Wolff on 06-20-2024 Potassium (Unsp spec) [Mass/Vol] 3.8 mmol/L 3.3-5.1 [facility] RBC Auto (Bld) [#/Vol]Ordere d By: Donna Wolff on 06-20-2024 RBC (Bld) [#/Vol] 5.46 10*6/uL 4.6-6.2 [facility] Serum creatinine measurement (mass/volume)Ordered By: Donna Wolff on 06-20-2024 Creatinine [Mass/Vol] 1.07 mg/dL 0.70-1.20 [facility] Serum glucose measurement (m ass/volume)Ordered By: Donna Wolff on 06-20-2024 Glucose [Mass/Vol] 110 mg/dL High 70-99 [facility] Serum or plasma calcium brenda urement (mass/volume)Ordered By: Donna Wolff on 06-20-2024 Calcium [Mass/Vol] 9.5 mg/dL 7.6-11.0 [facility] Serum or plasma urea nitroge n measurement (mass/volume)Ordered By: Donna Wolff on 06-20-2024 Urea nitrogen [Mass/Vol] 29 mg/dL High 4-19 [facility] Sodium levelOrdered By: Gretta Wolff on 06-20-2024 Sodium [Moles/Vol] 138 mmol/L 133-145 [facility] Stress Reporton 06-20-2024 Stress Report Normal [facility] White blood cell (WBC) count Ordered By: Donna Wolff on 06-20-2024 WBC (Bld) [#/Vol] 14.2 10*3/uL High 4.4-11.0 [facility] Absolute lymphocyte countOrd ered By: Steve Donald on 06-19-2024 Lymphocytes Auto (Unsp spec) [#/Vol] 1.12 10*3/uL 0.83-4.51 [facility] Automated lymphocyte count a s percentage of total leukocytesOrdered By: Steve Odello on 06-19-2024 Lymphocytes/100 WBC Auto (Unsp spec) 9.8 % Low 19-41 [facility] Basophil percentageOrdered B y: Steve Donald on 06-19-2024 Basophils/100 WBC (Bld) 0.1 % 0-1 [facility] Bedside Glucoseon 06-19-2024 FINGERSTICK GLU 220 mg/dL High 74-106 [facility] Comment on above: Result Comment: SNEHA GEMENT OF PATIENT CARE PER NURSING PROTOCOL Performed By: #### L 501.080 ####[facility] [address] [place], [address] FINGERSTICK GLU 431 mg/dL High [address] [place] [address] Comment on above: Result Comment: SNEHA GEMENT OF PATIENT CARE PER NURSING PROTOCOL Performed By: #### L 501.080 ####[facility] [address] [place], [address] FINGERSTICK GLU 387 mg/dL High [address] [place] [address] Comment on above: Result Comment: SNEHA GEMENT OF PATIENT CARE PER NURSING PROTOCOL Performed By: #### L 501.080 ####[facility] [address] [place], [address] FINGERSTICK GLU 292 mg/dL High [address] [place] [address] Comment on above: Result Comment: SNEHA GEMENT OF PATIENT CARE PER NURSING PROTOCOL Performed By: #### L 501.080 ####[facility] [address] [place], [address] Bilirubin, totalOrdered By: Steve Odilon on 06-19-2024 Bilirubin [Mass/Vol] 0.63 mg/dL 0.00-1.30 [facility] CBC W/Diff, Automatedon 06-04 Absolute Lymph 1.12 X10 3/uL Normal 0.83-4.51 [facility] Comment on above: Performed By: #### L 501.2300, L501.9985, L500.4050, L100.0100 ####[facility] [address] [place], [address] Absolute Neut 9.8 X10 3/uL High 2.0-7.7 [facility] Comment on above: Performed By: #### L 501.2300, L501.9985, L500.4050, L100.0100 ####[facility] [address] [place], [address] Basophils/100 WBC (Bld) 0.1 % Normal 0-1 [facility] Comment on above: Performed By: #### L 501.2300, L501.9985, L500.4050, L100.0100 ####[facility] [address] [place], [address] Eosinophils/100 WBC (Bld) 0.0 % Normal 0-5 [facility] Comment on above: Performed By: #### L 501.2300, L501.9985, L500.4050, L100.0100 ####[facility] [address] [place], [address] Erythrocyte distribution width (RBC) [Ratio] 12.8 % Normal 11.6-14.6 [facility] Comment on above: Performed By: #### L 501.2300, L501.9985, L500.4050, L100.0100 ####[facility] [address] [place], [address] Hematocrit (Bld) [Volume fraction] 49.9 % Normal 40-54 [facility] Comment on above: Performed By: #### L 501.2300, L501.9985, L500.4050, L100.0100 ####[facility] [address] [place], [address] Hemoglobin (Bld) [Mass/Vol] 16.8 g/dL High 13.0-16.5 [facility] Comment on above: Performed By: #### L 501.2300, L501.9985, L500.4050, L100.0100 ####[facility] [address] [place], [address] IG% 0.700 Normal 0.0-0.9 [facility] Comment on above: Result Comment: IG% - Immature Granulocytes (promyelocytes, myelocytes andmetamyelocytes) > 1% indicates that a LEFT SHIFT is Present. Performed By: #### L 501.2300, L501.9985, L500.4050, L100.0100 ####[facility] [address] [place], [address] Lymphocytes/100 WBC (Bld) 9.8 % Low 19-41 [facility] Comment on above: Performed By: #### L 501.2300, L501.9985, L500.4050, L100.0100 ####[facility] [address] [place], [address] MCH (RBC) [Entitic mass] 31.3 pg Normal 27.0-32.0 [facility] Comment on above: Performed By: #### L 501.2300, L501.9985, L500.4050, L100.0100 ####[facility] [address] [place], [address] MCHC (RBC) [Mass/Vol] 33.7 g/dL Normal 32-36 [facility] Comment on above: Performed By: #### L 501.2300, L501.9985, L500.4050, L100.0100 ####[facility] [address] [place], [address] MCV (RBC) [Entitic vol] 92.9 fL Normal 80-94 [facility] Comment on above: Performed By: #### L 501.2300, L501.9985, L500.4050, L100.0100 ####[facility] [address] [place], [address] Monocytes/100 WBC (Bld) 3.2 % Normal 0-10 [facility] Comment on above: Performed By: #### L 501.2300, L501.9985, L500.4050, L100.0100 ####[facility] [address] [place], [address] Neutrophils/100 WBC (Bld) 86.2 % High 47-70 [facility] Comment on above: Performed By: #### L 501.2300, L501.9985, L500.4050, L100.0100 ####[facility] [address] [place], [address] Nucleated RBC (Bld) [#/Vol] 0 10*3/uL Normal 0-5 [facility] Comment on above: Performed By: #### L 501.2300, L501.9985, L500.4050, L100.0100 ####[facility] [address] [place], [address] Platelet mean volume (Bld) [Entitic vol] 10.4 fL Normal 6.2-12.0 [facility] Comment on above: Performed By: #### L 501.2300, L501.9985, L500.4050, L100.0100 ####[facility] [address] [place], [address] Platelets (Bld) [#/Vol] 290 10*3/uL Normal 150-450 [facility] Comment on above: Performed By: #### L 501.2300, L501.9985, L500.4050, L100.0100 ####[facility] [address] [place], [address] RBC (Bld) [#/Vol] 5.37 10*6/uL Normal 4.6-6.2 [facility] Comment on above: Performed By: #### L 501.2300, L501.9985, L500.4050, L100.0100 ####[facility] [address] [place], [address] RDW SD 43.8 fl Normal 35.1-43.9 [facility] Comment on above: Performed By: #### L 501.2300, L501.9985, L500.4050, L100.0100 ####[facility] [address] [place], [address] WBC (Bld) [#/Vol] 11.4 10*3/uL High 4.4-11.0 [facility] Comment on above: Performed By: #### L 501.2300, L501.9985, L500.4050, L100.0100 ####[facility] [address] [place], [address] Chest 1 View (Portable)on Chest 1 View (Portable) Normal [facility] Comprehensive Metabolic Prof ilon 06-19-2024 GAP 17 High 5-15 [facility] Comment on above: Performed By: #### L 501.2300, L501.9985, L500.4050, L100.0100 ####[facility] [address] [place], [address] Albumin [Mass/Vol] 4.1 g/dL Normal 3.4-4.8 [facility] Comment on above: Performed By: #### L 501.2300, L501.9985, L500.4050, L100.0100 ####[facility] [address] [place], [address] Albumin/Globulin [Mass ratio] 1.2 {ratio} Normal 0.9-2.4 [facility] Comment on above: Performed By: #### L 501.2300, L501.9985, L500.4050, L100.0100 ####[facility] [address] [place], [address] ALK PHOS 89 U/L Normal 40-129 [facility] Comment on above: Performed By: #### L 501.2300, L501.9985, L500.4050, L100.0100 ####[facility] [address] [place], [address] ALT [Catalytic activity/Vol] 38 U/L Normal <=46 [facility] Comment on above: Performed By: #### L 501.2300, L501.9985, L500.4050, L100.0100 ####[facility] [address] [place], [address] AST [Catalytic activity/Vol] 26 U/L Normal <=37 [facility] Comment on above: Performed By: #### L 501.2300, L501.9985, L500.4050, L100.0100 ####[facility] [address] [place], [address] Bilirubin [Mass/Vol] 0.63 mg/dL Normal 0.00-1.30 [facility] Comment on above: Performed By: #### L 501.2300, L501.9985, L500.4050, L100.0100 ####[facility] [address] [place], [address] BUN/CRE 24.5 RATIO High 10-20 [facility] Comment on above: Performed By: #### L 501.2300, L501.9985, L500.4050, L100.0100 ####[facility] [address] [place], [address] Calcium [Mass/Vol] 9.6 mg/dL Normal 7.6-11.0 [facility] Comment on above: Performed By: #### L 501.2300, L501.9985, L500.4050, L100.0100 ####[facility] [address] [place], [address] Chloride [Moles/Vol] 97 mmol/L Low 98-108 [facility] Comment on above: Performed By: #### L 501.2300, L501.9985, L500.4050, L100.0100 ####[facility] [address] [place], [address] CO2 [Moles/Vol] 19.8 mmol/L Low 21.0-32.0 [facility] Comment on above: Performed By: #### L 501.2300, L501.9985, L500.4050, L100.0100 ####[facility] [address] [place], [address] Creatinine [Mass/Vol] 1.12 mg/dL Normal 0.70-1.20 [facility] Comment on above: Performed By: #### L 501.2300, L501.9985, L500.4050, L100.0100 ####[facility] [address] [place], [address] ECRCL 70.97 ml/min Normal 50-250 [facility] Comment on above: Performed By: #### L 501.2300, L501.9985, L500.4050, L100.0100 ####[facility] [address] [place], [address] GFR/1.73 sq M.predicted among non-blacks MDRD (S/P/Bld) [Vol rate/Area] 73 mL/min/{1.73_m2} Normal >60 [facility] Comment on above: Result Comment: mL/m in/1.73m2 CKD-EPI Creatinine Equation (2020) Performed By: #### L 501.2300, L501.9985, L500.4050, L100.0100 ####[facility] [address] [place], [address] Globulin (S) [Mass/Vol] 3.5 g/dL Normal 2.2-4.2 [facility] Comment on above: Performed By: #### L 501.2300, L501.9985, L500.4050, L100.0100 ####[facility] [address] [place], [address] Glucose [Mass/Vol] 324 mg/dL High 70-99 [facility] Comment on above: Performed By: #### L 501.2300, L501.9985, L500.4050, L100.0100 ####[facility] [address] [place], [address] Potassium [Moles/Vol] 4.3 mmol/L Normal 3.3-5.1 [facility] Comment on above: Performed By: #### L 501.2300, L501.9985, L500.4050, L100.0100 ####[facility] [address] [place], [address] Sodium [Moles/Vol] 134 mmol/L Normal 133-145 [facility] Comment on above: Performed By: #### L 501.2300, L501.9985, L500.4050, L100.0100 ####[facility] [address] [place], [address] T PROT 7.6 g/dL Normal 5.9-8.4 [facility] Comment on above: Performed By: #### L 501.2300, L501.9985, L500.4050, L100.0100 ####[facility] [address] [place], [address] Urea nitrogen [Mass/Vol] 27 mg/dL High 4-19 [facility] Comment on above: Performed By: #### L 501.2300, L501.9985, L500.4050, L100.0100 ####[facility] [address] [place], [address] Eosinophil percentageOrdered By: Steve Donald on 06-19-2024 Eosinophils/100 WBC (Bld) 0.0 % 0-5 [facility] Hemoglobin A1con 06-19-2024 HbA1c (Bld) [Mass fraction] 12.4 % Normal <=5.6 [facility] Comment on above: Performed By: #### L 501.2300, L501.9985, L500.4050, L100.0100 ####[facility] [address] [place], [place], [address] Hemoglobin A1c percentageOrd ered By: Steve Donald on 06-19-2024 HbA1c (Bld) [Mass fraction] 12.4 % >5.7 [facility] Immature granulocytes/100 WB C Auto (Bld)Ordered By: Steve Donald on 06-19-2024 Immature granulocytes/100 WBC (Bld) 0.700 % 0.0-0.9 [facility] Monocyte percentageOrdered B y: Steve Donald on 06-19-2024 Monocytes/100 WBC (Bld) 3.2 % 0-10 [facility] Neutrophil percentageOrdered By: Steve Donald on 06-19-2024 Neutrophils/100 WBC (Bld) 86.2 % High 47-70 [facility] No Panel InformationOrdered By: Steve Donald on 06-19-2024 26 U/L <38 [facility] Phosphoruson 06-19-2024 Phosphate [Mass/Vol] 4.4 mg/dL Normal 2.7-4.5 [facility] Comment on above: Performed By: #### L 501.2300, L501.9985, L500.4050, L100.0100 ####[facility] [address] [place], [address] Serum globulin measurementOr dered By: Steve Donald on 06-19-2024 Globulin (S) [Mass/Vol] 3.5 g/dL 2.2-4.2 [facility] Serum or plasma alanine martino otransferase (ALT) measurementOrdered By: Steve Donald on 06-19-2024 ALT [Catalytic activity/Vol] 38 U/L <47 [facility] Serum or plasma albumin brenda urement (mass/volume)Ordered By: Steve Donald on 06-19-2024 Albumin [Mass/Vol] 4.1 g/dL 3.4-4.8 [facility] Serum or plasma albumin/glob ulin mass ratioOrdered By: Steve Donald on 06-19-2024 Albumin/Globulin [Mass ratio] 1.2 {ratio} 0.9-2.4 [facility] Serum or plasma alkaline yulia sphatase measurementOrdered By: Steve Donald on 06-19-2024 ALP [Catalytic activity/Vol] 89 U/L 40-129 [facility] Total proteinOrdered By: Sidney Donald on 06-19-2024 Protein [Mass/Vol] 7.6 g/dL 5.9-8.4 [facility] Assessment of wrist artery p atency prior to arterial punctureOrdered By: Steve Donald on 06-18-2024 Arterial patency Wrist artery --pre arterial puncture Positive [facility] Bedside Glucoseon 06-18-2024 FINGERSTICK GLU 434 mg/dL High 74-106 [facility] Comment on above: Result Comment: SNEHA GEMENT OF PATIENT CARE PER NURSING PROTOCOL Performed By: #### L 501.080 ####[facility] [address] [facility] [address] FINGERSTICK GLU 429 mg/dL High 74-106 [facility] Comment on above: Result Comment: Dr Manjit solis FollowedMANAGEMENT OF PATIENT CARE PER NURSING PROTOCOL Performed By: #### L 501.080 ####[facility] [address] [place], [address] FINGERSTICK GLU 321 mg/dL High 74-106 [facility] Comment on above: Result Comment: SNEHA GEMENT OF PATIENT CARE PER NURSING PROTOCOL Performed By: #### L 501.080 ####[facility] [address] [place], [address] FINGERSTICK GLU 282 mg/dL High 74-106 [facility] Comment on above: Result Comment: SNEHA DUNCAN OF PATIENT CARE PER NURSING PROTOCOL Performed By: #### L 501.080 ####[facility] [address] [place], [address] Bilirubin Test strip Ql (U)O rdered By: Steve Donald on 06-18-2024 Bilirubin Ql (U) Negative Negative [facility] Blood [facility] MOY TEST Positive Normal [facility] Comment on above: Performed By: #### L 9000.0800 ####[facility] [address] [place], [address] Base excess Calc (Bld) [Moles/Vol] 2 mmol/L Normal -2 to +2 [facility] Comment on above: Performed By: #### L 9000.0800 ####[facility] [address] [place], [address] Blood Gas Type ART Normal [facility] Comment on above: Performed By: #### L 9000.0800 ####[facility] [address] [place], [address] CO2 [Moles/Vol] 28 mmol/L Normal [facility] Comment on above: Performed By: #### L 9000.0800 ####[facility] [address] [place], [address] Comment 148 12 30% Normal [facility] Comment on above: Performed By: #### L 9000.0800 ####[facility] [address] [place], [address] FI02 30.0 Normal [facility] Comment on above: Performed By: #### L 9000.0800 ####[facility] [address] [place], [address] HCO3 (Bld) [Moles/Vol] 26.7 mmol/L High 22-26 [facility] Comment on above: Performed By: #### L 8999.08 ####[facility] [address] [place], [address] Mode Not entered Normal [facility] Comment on above: Performed By: #### L 8999.0800 ####[facility] [address] [place], [place], [address] O2 Delivery Dev BiPAP Normal [facility] Comment on above: Performed By: #### L 8999.08 ####[facility] [address] [place], [address] pCO2 41.5 mmHg Normal 35-45 [facility] Comment on above: Performed By: #### L 8999.0800 ####[facility] [address] [place], [address] pH (Bld) 7.42 [pH] Normal 7.35-7.45 [facility] Comment on above: Performed By: #### L 8999.0800 ####[facility] [address] [place], [address] PO2 73 mmHG Low 75-100 [facility] Comment on above: Performed By: #### L 8999.0800 ####[facility] [address] [place], [address] SITE R Radial Normal [facility] Comment on above: Performed By: #### L 8999.0800 ####[facility] [address] [place], [address] SO2 95 Normal 95-99 [facility] Comment on above: Performed By: #### L 0.0800 ####[facility] [address] [place], [place], [address] Blood base excess determinat ionOrdered By: Steve Donald on 06-18-2024 Base excess Calc (BldV) [Moles/Vol] 2 mmol/L -2-2 [facility] Blood bicarbonate measuremen tOrdered By: Steve Donald on 06-18-2024 HCO3 (Bld) [Moles/Vol] 26.7 mmol/L High 22-26 [facility] CTA Chest W/WO Contraston CTA Chest W/WO Contrast Normal [facility] Consultation - Cardiologyon 06-18-2024 Consultation - Cardiology Normal [facility] Echo Complete W/ Contraston 06-18-2024 Echo Complete W/ Contrast Normal [facility] Emergency Department Summary on 06-18-2024 Emergency Department Summary Normal [facility] H AND P Exam - Hospitaliston 06-18-2024 H&P Exam - Hospitalist Normal [facility] Influenza virus A and B and SARS-CoV-2 (COVID-19) and Respiratory syncytial virus RNAOrdered By: Jevon Osorio on 06-18-2024 SARS-CoV-2 (COVID-19) RNA HAYDER+probe Ql (Unsp spec) [facility] Ketones Test strip Ql (U)Ord ered By: Steve Donald on 06-18-2024 Ketones Ql (U) Negative Negative [facility] L499.0042on 06-18-2024 Trop T High Sen 84 ng/L Invalid Interpretation Code <=22 [facility] Comment on above: Result Comment: Crit ical Result(s) Called at: 0219 by:??NBURNS TO EFINKResults read back by same. Performed By: #### L 499.0042 ####[facility] [address] [place], [place], [address] L499.0043on 06-18-2024 Trop T High Sen 88 ng/L Invalid Interpretation Code <=22 [facility] Comment on above: Result Comment: Crit ical Result(s) Called at 0334: by: NBCRYSTAL TOEAFFSHERLY??Results read back by same. Performed By: #### L 499.0043 ####[facility] [address] [place], [address] L503.7505on 06-18-2024 Natriuretic peptide B (Bld) [Mass/Vol] 2490 pg/mL High <=900 [facility] Comment on above: Result Comment: Hear t Failure Unlikely: < 300 pg/mLHeart Failure Likely< 50 Years: > 450 pg/mL50-75 Years: > 900 pg/mL>75 Years: > 1800 pg/mL Performed By: #### L 503.7505 ####[facility] [address] [place], [address] M100.678on 06-18-2024 M100.678 SARS-CoV-2 (COVID 19 ) Negative INFLUENZA A Negative INFLUENZA B Negative RSV PCR Negative Normal [facility] Comment on above: Performed By: #### M 100.678 ####[facility] [address] [place], [address] Magnesiumon 06-18-2024 Magnesium [Mass/Vol] 2.0 mg/dL Normal 1.5-2.2 [facility] Comment on above: Performed By: #### L 501.9520, L501.5200 ####[facility] [address] [place], [address] Magnesium measurement (mass/ volume)Ordered By: Steve Donald on 06-18-2024 Magnesium (Unsp spec) [Mass/Vol] 2.0 mg/dL 1.5-2.2 [facility] Measurement, pHOrdered By: Jovana Donald on 06-18-2024 pH (Unsp spec) 7.42 [pH] 7.35-7.45 [facility] Mucus LM Ql (Urine sed)Order ed By: Steve Donald on 06-18-2024 Mucus Ql (Urine sed) 0 SEEN /hpf [facility] Nitrite Test strip Ql (U)Ord ered By: Steve Donald on 06-18-2024 Nitrite Ql (U) Negative Negative [facility] No Panel InformationOrdered By: Steve Donald on 06-18-2024 ART [facility] R Radial [facility] Not entered [facility] BiPAP [facility] 17/11 12 30% [facility] Protein Test strip Ql (U)Ord ered By: Steve Donald on 06-18-2024 Protein Ql (U) Negative Negative [facility] RESPIRATORY PANEL MOLECULARo n 06-18-2024 RP PANEL Normal [facility] Comment on above: Performed By: #### M 100.638 ####[facility] [address] [place], [place], [id number] Respiratory pathogens detect ion panel by molecular detection methodOrdered By: Steve Donald on 06-18-2024 Respiratory pathogens DNA and RNA panel HAYDER+probe (Resp) [facility] Squamous epithelial cells de tection in urine sediment by light microscopyOrdered By: Steve Donald on 06-18-2024 Epithelial cells.squamous LM Ql (Urine sed) 0-5 SEEN /hpf 0-5 [facility] TSH DL <= 0.005 mIU/L QnOrde red By: Steve Donald on 06-18-2024 TSH Qn 0.897 uIU/mL 0.300-4.200 [facility] Thyroid Stim Hormone (TSH)on 06-18-2024 TSH 0.897 uIU/mL Normal 0.300-4.200 [facility] Comment on above: Performed By: #### L 501.9520, L501.5200 ####[facility] [address] [place], [place], [id number] Total carbon dioxide measure mentOrdered By: Steve Donald on 06-18-2024 CO2 [Moles/Vol] 28 mmol/L [facility] Troponin T.cardiac [Mass/vol ume] in Serum or Plasma by High sensitivity methodOrdered By: Jevon Osorio on 06-18-2024 Troponin T.cardiac High sensitivity method [Mass/Vol] 88 ng/L High <22 [facility] Troponin T.cardiac High sensitivity method [Mass/Vol] 84 ng/L High <22 [facility] Urinalysis, Completeon 06-18 BACTERIA RARE Normal None Seen [facility] Comment on above: Order Comment: CLEAN CATCH Performed By: #### L 400.0001 ####[facility] [address] [place], [address] EPI,SQUAMOUS 0-5 SEEN Normal 0-5 [facility] Comment on above: Order Comment: CLEAN CATCH Performed By: #### L 400.0001 ####[facility] [address] [place], [address] RBC 0 SEEN Normal 0-5 [facility] Comment on above: Order Comment: CLEAN CATCH Performed By: #### L 400.0001 ####[facility] [address] [place], [address] WBC 0-5 SEEN Normal 0-5 [facility] Comment on above: Order Comment: CLEAN CATCH Performed By: #### L 400.0001 ####[facility] [address] [place], [address] BILIRUBIN URINE Negative Normal Negative [facility] Comment on above: Order Comment: CLEAN CATCH Performed By: #### L 400.0001 ####[facility] [address] [place], [address] Clarity (U) Clear Normal Clear [facility] Comment on above: Order Comment: CLEAN CATCH Performed By: #### L 400.0001 ####[facility] [address] [place], [address] Color (U) Yellow Normal Yellow [facility] Comment on above: Order Comment: CLEAN CATCH Performed By: #### L 400.0001 ####[facility] [address] [place], [address] GLUCOSE, UR 1000 mg/dl Abnormal Normal [facility] Comment on above: Order Comment: CLEAN CATCH Performed By: #### L 400.0001 ####[facility] [address] [facility] [address] KETONE UR Negative Normal Negative [facility] Comment on above: Order Comment: CLEAN CATCH Performed By: #### L 400.0001 ####[facility] [address] [facility] [address] LEUK ESTERASE Negative Normal Negative [facility] Comment on above: Order Comment: CLEAN CATCH Performed By: #### L 400.0001 ####[facility] [address] [place] [id number] Nitrite Ql (U) Negative Normal Negative [facility] Comment on above: Order Comment: CLEAN CATCH Performed By: #### L 400.0001 ####[facility] [address] [place] [id number] OCCULT BLOOD-UR Negative Normal Negative [facility] Comment on above: Order Comment: CLEAN CATCH Performed By: #### L 400.0001 ####[facility] [address] [place] [address] pH UR 6.0 Normal 5.0 - 8.0 [facility] Comment on above: Order Comment: CLEAN CATCH Performed By: #### L 400.0001 ####[facility] [address] [place] [address] PROT DIPSTX Negative Normal Negative [facility] Comment on above: Order Comment: CLEAN CATCH Performed By: #### L 400.0001 ####[facility] [address] [place] [address] SP.GR. DIPSTX 1.010 Normal 1.002-1.030 [facility] Comment on above: Order Comment: CLEAN CATCH Performed By: #### L 400.0001 ####[facility] [address] [place] [phone] UROBILI Normal Normal Normal [facility] Comment on above: Order Comment: CLEAN CATCH Performed By: #### L 400.0001 ####[facility] [address] [place], [address] Mucus Ql (Urine sed) 0 SEEN Normal [facility] Comment on above: Order Comment: CLEAN CATCH Performed By: #### L 400.0001 ####[facility] [address] [place], [address] Urine clarityOrdered By: Sidney Donald on 06-18-2024 Clarity (U) Clear Clear [facility] Urine color determinationOrd ered By: Steve Donald on 06-18-2024 Color (U) Yellow Yellow [facility] Urine glucose detectionOrder ed By: Steve Donald on 06-18-2024 Glucose Ql (U) 1000 mg/dl High Normal [facility] Urine leukocyte esterase det ection by dipstickOrdered By: Steve Donald on 06-18-2024 Leukocyte esterase Test strip Ql (U) Negative Negative [facility] Urine pHOrdered By: Steve caraballo on 06-18-2024 pH (U) 6.0 [pH] 5.0 - 8.0 [facility] Urine sediment bacteria coun t by microscopy (number/high power field)Ordered By: Steve Donald on 06-18-2024 Bacteria LM.HPF (Urine sed) [#/Area] RARE /hpf None Seen [facility] Urine specific gravity measu rementOrdered By: Steve Donald on 06-18-2024 Specific gravity (U) [Rel density] 1.010 1.002-1.030 [facility] Urine urobilinogen measureme ntOrdered By: Steve Donald on 06-18-2024 Urobilinogen Ql (U) Normal mg/dl Normal [facility] White blood cell countOrdere d By: Steve Donald on 06-18-2024 White blood cell count 0-5 SEEN /hpf 0-5 [facility] 12 Lead EKGon 06-17-2024 12 Lead EKG Normal [facility] Basic Metabolic Profile (BMP )on 06-17-2024 BUN/CRE 18.7 RATIO Normal 10-20 [facility] Comment on above: Performed By: #### L 100.0100, L500.2500, L501.4021 ####[facility] [address] [place], [address] Calcium [Mass/Vol] 9.4 mg/dL Normal 7.6-11.0 [facility] Comment on above: Performed By: #### L 100.0100, L500.2500, L501.4021 ####[facility] [address] [place], [address] Chloride [Moles/Vol] 100 mmol/L Normal 98-108 [facility] Comment on above: Performed By: #### L 100.0100, L500.2500, L501.4021 ####[facility] [address] [place], [address] CO2 [Moles/Vol] 21.0 mmol/L Normal 21.0-32.0 [facility] Comment on above: Performed By: #### L 100.0100, L500.2500, L501.4021 ####[facility] [address] [place], [address] Creatinine [Mass/Vol] 0.94 mg/dL Normal 0.70-1.20 [facility] Comment on above: Performed By: #### L 100.0100, L500.2500, L501.4021 ####[facility] [address] [place], [address] GAP 14 Normal 5-15 [facility] Comment on above: Performed By: #### L 100.0100, L500.2500, L501.4021 ####[facility] [address] [place], [address] GFR/1.73 sq M.predicted among non-blacks MDRD (S/P/Bld) [Vol rate/Area] 91 mL/min/{1.73_m2} Normal >60 [facility] Comment on above: Result Comment: mL/m in/1.73m2 CKD-EPI Creatinine Equation (2020) Performed By: #### L 100.0100, L500.2500, L501.4021 ####[facility] [address] [place], [address] Glucose [Mass/Vol] 438 mg/dL High 70-99 [facility] Comment on above: Performed By: #### L 100.0100, L500.2500, L501.4021 ####[facility] [address] [place], [address] Potassium [Moles/Vol] 4.5 mmol/L Normal 3.3-5.1 [facility] Comment on above: Performed By: #### L 100.0100, L500.2500, L501.4021 ####[facility] [address], [address] Sodium [Moles/Vol] 134 mmol/L Normal 133-145 [facility] Comment on above: Performed By: #### L 100.0100, L500.2500, L501.4021 ####[facility] [address] [place], [address] Urea nitrogen [Mass/Vol] 18 mg/dL Normal 4-19 [facility] Comment on above: Performed By: #### L 100.0100, L500.2500, L501.4021 ####[facility] [address] [place], [address] CBC W/Diff, Automatedon 06-04 Absolute Lymph 2.17 X10 3/uL Normal 0.83-4.51 [facility] Comment on above: Performed By: #### L 100.0100, L500.2500, L501.4021 ####[facility] [address] [place], [address] Absolute Neut 2.9 X10 3/uL Normal 2.0-7.7 [facility] Comment on above: Performed By: #### L 100.0100, L500.2500, L501.4021 ####[facility] [address] [place], [address] Basophils/100 WBC (Bld) 0.3 % Normal 0-1 [facility] Comment on above: Performed By: #### L 100.0100, L500.2500, L501.4021 ####[facility] [address] [place], [address] Eosinophils/100 WBC (Bld) 2.2 % Normal 0-5 [facility] Comment on above: Performed By: #### L 100.0100, L500.2500, L501.4021 ####[facility] [address] [place], [address] Erythrocyte distribution width (RBC) [Ratio] 13.1 % Normal 11.6-14.6 [facility] Comment on above: Performed By: #### L 100.0100, L500.2500, L501.4021 ####[facility] [address] [place], [address] Hematocrit (Bld) [Volume fraction] 46.2 % Normal 40-54 [facility] Comment on above: Performed By: #### L 100.0100, L500.2500, L501.4021 ####[facility] [address] [place], [address] Hemoglobin (Bld) [Mass/Vol] 15.2 g/dL Normal 13.0-16.5 [facility] Comment on above: Performed By: #### L 100.0100, L500.2500, L501.4021 ####[facility] [address] [place], [address] IG% 0.200 Normal 0.0-0.9 [facility] Comment on above: Result Comment: IG% - Immature Granulocytes (promyelocytes, myelocytes andmetamyelocytes) > 1% indicates that a LEFT SHIFT is Present. Performed By: #### L 100.0100, L500.2500, L501.4021 ####[facility] [address] [place], [address] Lymphocytes/100 WBC (Bld) 37.2 % Normal 19-41 [facility] Comment on above: Performed By: #### L 100.0100, L500.2500, L501.4021 ####[facility] [address] [place], [address] MCH (RBC) [Entitic mass] 31.3 pg Normal 27.0-32.0 [facility] Comment on above: Performed By: #### L 100.0100, L500.2500, L501.4021 ####[facility] [address] [place], [address] MCHC (RBC) [Mass/Vol] 32.9 g/dL Normal 32-36 [facility] Comment on above: Performed By: #### L 100.0100, L500.2500, L501.4021 ####[facility] [address] [place], [address] MCV (RBC) [Entitic vol] 95.1 fL High 80-94 [facility] Comment on above: Performed By: #### L 100.0100, L500.2500, L501.4021 ####[facility] [address] [place], [address] Monocytes/100 WBC (Bld) 10.3 % High 0-10 [facility] Comment on above: Performed By: #### L 100.0100, L500.2500, L501.4021 ####[facility] [address] [place], [address] Neutrophils/100 WBC (Bld) 49.8 % Normal 47-70 [facility] Comment on above: Performed By: #### L 100.0100, L500.2500, L501.4021 ####[facility] [address] [place], [address] Nucleated RBC (Bld) [#/Vol] 0 10*3/uL Normal 0-5 [facility] Comment on above: Performed By: #### L 100.0100, L500.2500, L501.4021 ####[facility] [address] [place], [address] Platelet mean volume (Bld) [Entitic vol] 10.3 fL Normal 6.2-12.0 [facility] Comment on above: Performed By: #### L 100.0100, L500.2500, L501.4021 ####[facility] [address] [place], [address] Platelets (Bld) [#/Vol] 244 10*3/uL Normal 150-450 [facility] Comment on above: Performed By: #### L 100.0100, L500.2500, L501.4021 ####[facility] [address] [place], [address] RBC (Bld) [#/Vol] 4.86 10*6/uL Normal 4.6-6.2 [facility] Comment on above: Performed By: #### L 100.0100, L500.2500, L501.4021 ####[facility] [address] [place], [address] RDW SD 45.7 fl High 35.1-43.9 [facility] Comment on above: Performed By: #### L 100.0100, L500.2500, L501.4021 ####[facility] [address] [place], [address] WBC (Bld) [#/Vol] 5.8 10*3/uL Normal 4.4-11.0 [facility] Comment on above: Performed By: #### L 100.0100, L500.2500, L501.4021 ####[facility] [address] [place], [address] Chest 1 View (Portable)on Chest 1 View (Portable) Normal [facility] L501.4021on 06-17-2024 Trop T High Sen 76 ng/L Invalid Interpretation Code <=22 [facility] Comment on above: Result Comment: Crit ical Result(s) Called at: 2342 by: NARAYAN LAMBERT??Results read back by same. Performed By: #### L 100.0100, L500.2500, L501.4021 ####[facility] [address] [place], [address] No Panel InformationOrdered By: ED PROVIDER on 06-17-2024 76 ng/L High <22 [facility] No Panel InformationOrdered By: Jevon Osorio on 06-17-2024 2490 pg/mL High <900 [facility] Ankle Brachial Indexon 06-13 Ankle Brachial Index Normal [facility] Arterial Doppler ultrasound reportOrdered By: Saúl Flowers on 06-13-2024 Study report [facility] [address] [place] [address] US Art Duplex Unilat Lower Ext 06/13/24 1426 MR#: [id number] Acct: [id number] Name: JAYLEN MEJIA Sr. Rep #:[id number] [...] Date Dictated: 06/13/24 1426 Date Transcribed: 06/13/24 163 Rn Integrity: Signed [facility] Work Phone: Arterial study reportOrdered By: Saúl Flowers on 06-13-2024 Noninvasive arteriosclerosis study report [facility] [address] [place] [address] Ankle Brachial Index 06/13/24 1351 MR#: [id number] Acct: [id number] Name: JAYLEN MEJIA Sr. Rep #:[id number] : 1960 64 From: Saúl Whaley Attending Dr: NILSON Heck Stat us: REG CLI Ordering Dr: Lubna Manley Date: Location: [facility] Sex: M C Admitted: Reason For [...] Dictated: 06/13/24 1351 Date Transcribed: 06/13/24 1630 Rn Integrity: Signed [facility] Work Phone: US Art Duplex Unilat Lower E xton 06-13-2024 US Art Duplex Unilat Lower Ext Normal [facility] Chest 1 View (Portable)on Chest 1 View (Portable) Normal [facility] Emergency Department Summary on 05-21-2024 Emergency Department Summary Normal [facility] Influenza virus A and B and SARS-CoV-2 (COVID-19) and Respiratory syncytial virus RNAOrdered By: Saúl Aguilar on 05-21-2024 SARS-CoV-2 (COVID-19) RNA HAYDER+probe Ql (Unsp spec) [facility] M100.678on 05-21-2024 M100.678 SARS-CoV-2 (COVID 19 ) Negative INFLUENZA A Negative INFLUENZA B Negative RSV PCR Negative Normal [facility] [facility] Comment on above: Performed By: #### M 100.678 ####[facility] [address] [place], [place], [address] MR/BMS.Mayo 05-17-2024 MR/BMS.BVS Normal [facility] Echo Complete W/ Contraston 05-09-2024 Echo Complete W/ Contrast Normal [facility] Internal Medicine Office Vis iton 05-03-2024 Internal Medicine Office Visit Normal [facility] Laboratory - Hematology and Cell countson 05-03-2024 HbA1c (Bld) [Mass fraction] 11.4 % High 4.2-6.3 [facility] ACT Activated Clotting Timeo n 04-20-2024 ACTk CLOT TIME 222 sec High 74-137 [facility] Comment on above: Performed By: #### L 9100.0100 ####[facility] [address] [place], [place], [address] Activated clotting timeOrder ed By: Saúl Flowers on 04-20-2024 Activated Clotting Time 222 sec High 74-137 [facility] Basic Metabolic Profile (BMP )on 04-20-2024 BUN/CRE 15.1 RATIO Normal 10-20 [facility] Comment on above: Performed By: #### L 500.2500, L100.0500 ####[facility] [address] [place], [address] CA,Total 9.3 mg/dL Normal 8.5-10.1 [facility] Comment on above: Performed By: #### L 500.2500, L100.0500 ####[facility] [address] [place], [address] Chloride [Moles/Vol] 103 mmol/L Normal 98-107 [facility] Comment on above: Performed By: #### L 500.2500, L100.0500 ####[facility] [address] [place], [address] CO2 [Moles/Vol] 26.0 mmol/L Normal 21.0-32.0 [facility] Comment on above: Performed By: #### L 500.2500, L100.0500 ####[facility] [address] [place], [address] Creatinine [Mass/Vol] 1.06 mg/dL Normal 0.70-1.30 [facility] Comment on above: Result Comment: The validity of the calculated GFR GFRAA in patients over70 years has not been determined. Clinical correlation isessential. Performed By: #### L 500.2500, L100.0500 ####[facility] [address] [place], [address] ECRCL 78.67 ml/min Normal [facility] Comment on above: Performed By: #### L 500.2500, L100.0500 ####[facility] [address] [place], [address] EST GFR - AA 90 mL/min Normal >60 [facility] Comment on above: Result Comment: Afri can Prydeinig GFR Calc Performed By: #### L 500.2500, L100.0500 ####[facility] [address] [place], [address] GAP 6 Normal 5-15 [facility] Comment on above: Performed By: #### L 500.2500, L100.0500 ####[facility] [address] [place], [address] GFR/1.73 sq M.predicted among non-blacks MDRD (S/P/Bld) [Vol rate/Area] 75 mL/min/{1.73_m2} Normal >60 [facility] Comment on above: Result Comment: Non- GFR Calc Performed By: #### L 500.2500, L100.0500 ####[facility] [address] [place], [address] Glucose [Mass/Vol] 228 mg/dL High 74-106 [facility] Comment on above: Result Comment: Gluc ose result greater than or equal to 200 mg/dLsuggests DIABETES MELLITUS per A.D.A. criteria. Performed By: #### L 500.2500, L100.0500 ####[facility] [address] [place], [address] Potassium [Moles/Vol] 4.3 mmol/L Normal 3.5-5.1 [facility] Comment on above: Performed By: #### L 500.2500, L100.0500 ####[facility] [address] [place], [address] Sodium [Moles/Vol] 135 mmol/L Low 136-145 [facility] Comment on above: Performed By: #### L 500.2500, L100.0500 ####[facility] [address] [place], [address] Urea nitrogen [Mass/Vol] 16 mg/dL Normal 7-18 [facility] Comment on above: Performed By: #### L 500.2500, L100.0500 ####[facility] [address] [place], [address] Blood urea nitrogen (BUN)/cr eatinine ratioOrdered By: Saúl Flowers on 04-20-2024 Urea nitrogen/Creatinine [Mass ratio] 15.1 mg/mg 10-20 [facility] CBC-Complete Blood Cnt No Di ffon 04-20-2024 Erythrocyte distribution width (RBC) [Ratio] 12.9 % Normal 11.6-14.6 [facility] Comment on above: Performed By: #### L 500.2500, L100.0500 ####[facility] [address] [place], [address] Hematocrit (Bld) [Volume fraction] 52.2 % Normal 40-54 [facility] Comment on above: Performed By: #### L 500.2500, L100.0500 ####[facility] [address] [place], [address] Hemoglobin (Bld) [Mass/Vol] 17.8 g/dL High 13.0-16.5 [facility] Comment on above: Performed By: #### L 500.2500, L100.0500 ####[facility] [address] [place], [address] MCH (RBC) [Entitic mass] 31.7 pg Normal 27.0-32.0 [facility] Comment on above: Performed By: #### L 500.2500, L100.0500 ####[facility] [address] [place], [address] MCHC (RBC) [Mass/Vol] 34.1 g/dL Normal 32-36 [facility] Comment on above: Performed By: #### L 500.2500, L100.0500 ####[facility] [address] [place], [address] MCV (RBC) [Entitic vol] 92.9 fL Normal 80-94 [facility] Comment on above: Performed By: #### L 500.2500, L100.0500 ####[facility] [address] [place], [address] Platelet mean volume (Bld) [Entitic vol] 9.5 fL Normal 6.2-12.0 [facility] Comment on above: Performed By: #### L 500.2500, L100.0500 ####[facility] [address] [place], [address] Platelets (Bld) [#/Vol] 271 10*3/uL Normal 150-450 [facility] Comment on above: Performed By: #### L 500.2500, L100.0500 ####[facility] [address] [place], [address] RBC (Bld) [#/Vol] 5.62 10*6/uL Normal 4.6-6.2 [facility] Comment on above: Performed By: #### L 500.2500, L100.0500 ####[facility] [address] [place], [address] RDW SD 43.8 fl Normal 35.1-43.9 [facility] Comment on above: Performed By: #### L 500.2500, L100.0500 ####[facility] [address] [place], [address] WBC (Bld) [#/Vol] 8.5 10*3/uL Normal 4.4-11.0 [facility] Comment on above: Performed By: #### L 500.2500, L100.0500 ####[facility] [address] [place], [address] Carbon dioxide measurementOr dered By: Saúl Flowers on 04-20-2024 CO2 [Moles/Vol] 26.0 mmol/L 21.0-32.0 [facility] Chloride measurementOrdered By: Saúl Flowers on 04-20-2024 Chloride [Moles/Vol] 103 mmol/L 98-107 [facility] Erythrocyte distribution wid th ratioOrdered By: Saúl Flowers on 04-20-2024 Erythrocyte distribution width (RBC) [Ratio] 12.9 % 11.6-14.6 [facility] Erythrocyte distribution wid th standard deviationOrdered By: Saúl Flowers on 04-20-2024 Erythrocyte distribution width (RBC) [Entitic vol] 43.8 fL 35.1-43.9 [facility] Estimated glomerular filtrat ion rate (GFR) AmericanOrdered By: Saúl Flowers on 04-20-2024 Estimated GFR (MDRD) Amer 90 mL/min >60 [facility] Comment on above: GFR Calc Estimation of creatinine john aranceOrdered By: Saúl Flowers on 04-20-2024 Estimated Creatinine Clearance Calc 78.67 ml/min [facility] Glomerular filtration rate ( GFR) estimationOrdered By: Saúl Flowers on 04-20-2024 Estimated GFR (MDRD) Non-Af Amer 75 mL/min >60 [facility] Comment on above: Non- GFR Calc Glucose measurementOrdered B y: Saúl Flowers on 04-20-2024 Glucose [Mass/Vol] 228 mg/dL High 74-106 [facility] Comment on above: Glucose result great er than or equal to 200 mg/dLsuggests DIABETES MELLITUS per A.D.A. criteria. Hematocrit Auto (Bld) [Volum e fraction]Ordered By: Saúl Flowers 04-20-2024 Hematocrit (Bld) [Volume fraction] 52.2 % 40-54 [facility] Hemoglobin measurementOrdere d By: Súal Flowers 04-20-2024 Hemoglobin (Bld) [Mass/Vol] 17.8 g/dL High 13.0-16.5 [facility] MCV (mean corpuscular volume ) determinationOrdered By: Saúl Flowers 04-20-2024 MCV (RBC) [Entitic vol] 92.9 fL 80-94 [facility] Mean corpuscular hemoglobin (MCH) determinationOrdered By: Saúl Flowers 04-20-2024 MCH (RBC) [Entitic mass] 31.7 pg 27.0-32.0 [facility] Mean corpuscular hemoglobin concentration (MCHC) determinationOrdered By: Saúl Flowers on 04-20-2024 MCHC (RBC) [Mass/Vol] 34.1 g/dL 32-36 [facility] Mean platelet volume determi nationOrdered By: Saúl Flowers on 04-20-2024 Platelet mean volume (Bld) [Entitic vol] 9.5 fL 6.2-12.0 [facility] Operative Reporton Operative Report Normal [facility] Platelet countOrdered By: Chacho Flowers on 04-20-2024 Platelets (Bld) [#/Vol] 271 10*3/uL 150-450 [facility] Potassium measurementOrdered By: Saúl Flowers on 04-20-2024 Potassium [Moles/Vol] 4.3 mmol/L 3.5-5.1 [facility] RBC Auto (Bld) [#/Vol]Ordere d By: Saúl Flowers on 04-20-2024 RBC (Bld) [#/Vol] 5.62 10*6/uL 4.6-6.2 [facility] Serum anion gap measurementO rdered By: Saúl Flowers on 04-20-2024 Anion gap [Moles/Vol] 6 mmol/L - [facility] Serum or plasma calcium brenda urement (mass/volume)Ordered By: Saúl Flowers on 04-20-2024 Calcium [Mass/Vol] 9.3 mg/dL 8.5-10.1 [facility] Serum or plasma creatinine m easurement (mass/volume)Ordered By: Saúl Flowers on 04-20-2024 Creatinine [Mass/Vol] 1.06 mg/dL 0.70-1.30 [facility] Comment on above: The validity of the calculated GFR & GFRAA in patients over 70 years has not been determined. Clinical correlation is essential. Serum or plasma urea nitroge n measurement (mass/volume)Ordered By: Saúl Flowers on 04-20-2024 Urea nitrogen [Mass/Vol] 16 mg/dL 7-18 [facility] Sodium levelOrdered By: Saúl Flowers on 04-20-2024 Sodium [Moles/Vol] 135 mmol/L Low 136-145 [facility] White blood cell (WBC) count Ordered By: Saúl Flowers on 04-20-2024 WBC (Bld) [#/Vol] 8.5 10*3/uL 4.4-11.0 [facility] MR/BMS.BVSon 04-08-2024 MR/BMS.BVS Normal [facility] Cardiology Visit Reporton Cardiology Visit Report Normal [facility] CREATININE FINGERSTICKon CREATININE WB < 1.0 Normal 0.70-1.30 [facility] Comment on above: Performed By: #### L 9100.0200 ####[facility] [address] [place], [place], [address] EGFR WB > 60.0000 Normal >60 [facility] Comment on above: Performed By: #### L 9100.0200 ####[facility] [address] [place], [place], [address] CTA Abd w/Runoff W/WO Contra ston 03-29-2024 CTA Abd w/Runoff W/WO Contrast Normal [facility] Creatinine measurement at be dsideOrdered By: Lubna Manley on 03-29-2024 Bedside Creatinine < 1.0 mg/dL 0.70-1.30 [facility] EGFROrdered By: Lubna Manley on 03-29-2024 Bedside Estimated GFR (eGFR) > 60.0000 mL/min >60 [facility] MR/BMS.BVSon 03-22-2024 MR/BMS.BVS Normal [facility] Lower Ext Art Exam w/o Exerc zachary 03-09-2024 Lower Ext Art Exam w/o Exercis Normal [facility] Internal Medicine Office Vis iton 02-24-2024 Internal Medicine Office Visit Normal [facility] Laboratory - Hematology and Cell countson 02-24-2024 HbA1c (Bld) [Mass fraction] 11.3 % High 4.2-6.3 [facility] MR/BMS.BVSon 02-24-2024 MR/BMS.BVS Normal [facility] Lipid Profileon 02-23-2024 Cholesterol [Mass/Vol] 238 mg/dL High 200 [facility] Comment on above: Result Comment: <200 mg/dL Desirable 200-240 mg/dL Borderline >240 mg/dL High Risk Performed By: #### L 500.3400, L500.4100 ####[facility] [address] [place], [address] Cholesterol in HDL [Mass/Vol] 38 mg/dL Low [facility] Comment on above: Result Comment: The drugs N-Acetylcysteine and Metamizole may falselydepress this assay. Reference Range HDL <40 mg/dL Low HDL Cholesterol HDL >or= 60 mg/dL High HDL Cholesterol Performed By: #### L 500.3400, L500.4100 ####[facility] [address] [place], [address] LDL TNP Normal 0-130 [facility] Comment on above: Performed By: #### L 500.3400, L500.4100 ####[facility] [address] [place], [address] Triglyceride [Mass/Vol] 607 mg/dL High [facility] Comment on above: Result Comment: The drugs N-Acetylcysteine and Metamizole may falselydepress this assay.TRIGLYCERIDE IS GREATER THAN 400 mg/dL.LDL RESULT IS INVALID AND WILL NOT BE REPORTED.Serum Triglycerides Reference Interval Normal <150 mg/dL Borderline high 150 - 199 mg/dL High 200 - 499 mg/dL Very High > or = 500 mg/dL Performed By: #### L 500.3400, L500.4100 ####[facility] [address] [place], [address] VLDL TNP Normal 5-40 [facility] Comment on above: Performed By: #### L 500.3400, L500.4100 ####[facility] [address] [place], [address] Liver Profileon 02-23-2024 Albumin [Mass/Vol] 3.8 g/dL Normal 3.2-5.0 [facility] Comment on above: Performed By: #### L 500.3400, L500.4100 ####[facility] [address] [place], [address] ALK P 69 U/L Normal 45-117 [facility] Comment on above: Performed By: #### L 500.3400, L500.4100 ####[facility] [address] [place], [address] ALT [Catalytic activity/Vol] 37 U/L Normal 16-61 [facility] Comment on above: Performed By: #### L 500.3400, L500.4100 ####[facility] [address] [place], [address] AST [Catalytic activity/Vol] 27 U/L Normal 15-37 [facility] Comment on above: Performed By: #### L 500.3400, L500.4100 ####[facility] [address] [place], [address] Bilirubin [Mass/Vol] 0.70 mg/dL Normal 0.20-1.00 [facility] Comment on above: Result Comment: For patients on eltrombopag therapy, use of Dimension [place] TBIL is not recommended. Performed By: #### L 500.3400, L500.4100 ####[facility] [address] [place], [address] Bilirubin.direct [Mass/Vol] 0.16 mg/dL Normal 0.00-0.30 [facility] Comment on above: Performed By: #### L 500.3400, L500.4100 ####[facility] [address] [place], [address] Globulin (S) [Mass/Vol] 4.0 g/dL Normal 2.2-4.2 [facility] Comment on above: Performed By: #### L 500.3400, L500.4100 ####[facility] [address] [place], [place], [address] T PROT 7.8 g/dL Normal 6.4-8.2 [facility] Comment on above: Performed By: #### L 500.3400, L500.4100 ####[facility] [address] [place], [address] MR/BMS.BVSon 01-07-2024 MR/BMS.BVS Normal [facility] Venous Duplex US, Unilateral on 11-13-2023 Venous Duplex US, Unilateral Normal [facility] Internal Medicine Office Vis iton 10-28-2023 Internal Medicine Office Visit Normal [facility] Basophil percentageOrdered B y: Xiang Brown on 04-15-2023 Bilirubin [Mass/Vol] 0.60 mg/dL 0.20-1.00 [facility] Comment on above: For patients on eltr ombopag therapy, use of Dimension [place] TBIL is not recommended. Chloride [Moles/Vol] 100 mmol/L 98-107 [facility] Cholesterol [Mass/Vol] 255 mg/dL <200 [facility] Comment on above: <200 mg/dL Desirable 200-240 mg/dL Borderline >240 mg/dL High Risk Glucose [Mass/Vol] 255 mg/dL 74-106 [facility] Comment on above: Glucose result great er than or equal to 200 mg/dLsuggests DIABETES MELLITUS per A.D.A. criteria. Potassium [Moles/Vol] 4.7 mmol/L 3.5-5.1 [facility] Comment on above: Slight Hemolysis, Re sult may be falsely increased. Protein [Mass/Vol] 7.7 g/dL 6.4-8.2 [facility] Sodium [Moles/Vol] 133 mmol/L 136-145 [facility] Triglyceride [Mass/Vol] 411 mg/dL <199 [facility] Comment on above: The drugs [...] ALP [Catalytic activity/Vol] 81 U/L 45-117 [facility] ALT [Catalytic activity/Vol] 40 U/L 16-61 [facility] CO2 [Moles/Vol] 28.0 mmol/L 21.0-32.0 [facility] Globulin (S) [Mass/Vol] 4.1 g/dL 2.2-4.2 [facility] Urea nitrogen/Creatinine [Mass ratio] 11.9 mg/mg 10-20 [facility] Laboratory - Hematology and Cell countson 04-15-2023 HbA1c (Bld) [Mass fraction] 10.6 % 4.2-6.3 [facility] No Panel InformationOrdered By: Xiang Rogers on 04-15-2023 Estimated GFR (MDRD) Amer 96 mL/min >60 [facility] Comment on above: GFR Calc Estimated GFR (MDRD) Non-Af Amer 79 mL/min >60 [facility] Comment on above: Non- GFR Calc Serum or plasma albumin brenda urement (mass/volume)Ordered By: Xiang Rogers on 04-15-2023 Albumin [Mass/Vol] 3.6 g/dL 3.2-5.0 [facility] Serum or plasma albumin/glob ulin mass ratioOrdered By: Xiang Rogers on 04-15-2023 Albumin/Globulin [Mass ratio] 0.9 {ratio} 0.9-2.4 [facility] Serum or plasma calcium brenda urement (mass/volume)Ordered By: Xiang Rogers on 04-15-2023 Calcium [Mass/Vol] 8.9 mg/dL 8.5-10.1 [facility] Serum or plasma cholesterol in HDL measurement (mass/volume)Ordered By: Xiang Rogers on 04-15-2023 Cholesterol in HDL [Mass/Vol] 37 mg/dL >40 [facility] Comment on above: The drugs N-Acetylcy steine and Metamizole may falsely depress this assay. Reference Range HDL <40 mg/dL Low HDL Cholesterol HDL >or= 60 mg/dL High HDL Cholesterol Serum or plasma cholesterol in VLDL measurement (mass/volume)Ordered By: Xiang Rogers on 04-15-2023 Cholesterol in VLDL [Mass/Vol] [facility] Comment on above: Test not performed Serum or plasma creatinine m easurement (mass/volume)Ordered By: Xiang Rogers on 04-15-2023 Creatinine [Mass/Vol] 1.01 mg/dL 0.70-1.30 [facility] Comment on above: The validity of the calculated GFR & GFRAA in patients over 70 years has not been determined. Clinical correlation is essential. Serum or plasma low density lipoprotein (LDL) cholesterol measurement (mass/volume)Ordered By: Xiang Rogers on 04-15-2023 Cholesterol in LDL [Mass/Vol] [facility] Comment on above: Test not performed Serum or plasma urea nitroge n measurement (mass/volume)Ordered By: Xiang Rogers on 04-15-2023 Urea nitrogen [Mass/Vol] 12 mg/dL 7-18 [facility] Thin prep Papanicolaou smear with manual screeningOrdered By: Xiang Rogers on 04-15-2023 Thin prep Papanicolaou smear with manual screening 29 U/L 15 [facility] Comment on above: Slight Hemolysis, Re sult may be falsely increased. Thin prep Papanicolaou smear with manual screening 5 5-15 [facility] Laboratory - Hematology and Cell countson 01-13-2023 HbA1c (Bld) [Mass fraction] 9.0 % 4.2-6.3 [facility] Basophil percentageOrdered B y: Dean Pena on 06-02-2022 Bilirubin [Mass/Vol] 0.50 mg/dL 0.20-1.00 [facility] Comment on above: For patients on eltr ombopag therapy, use of Dimension [place] TBIL is not recommended. Cholesterol [Mass/Vol] 326 mg/dL <200 [facility] Comment on above: <200 mg/dL Desirable 200-240 mg/dL Borderline >240 mg/dL High Risk Protein [Mass/Vol] 7.5 g/dL 6.4-8.2 [facility] Triglyceride [Mass/Vol] 883 mg/dL <199 [facility] Comment on above: The drugs [...] 06-02-2022 Bilirubin.direct [Mass/Vol] 0.07 mg/dL 0.00-0.30 [facility] Laboratory - Chemistry and C hemistry - challengeOrdered By: Dean Pena on 06-02-2022 ALP [Catalytic activity/Vol] 68 U/L 45-117 [facility] ALT [Catalytic activity/Vol] 35 U/L 16-61 [facility] Globulin (S) [Mass/Vol] 3.9 g/dL 2.2-4.2 [facility] Serum or plasma albumin brenda urement (mass/volume)Ordered By: Dean Pena on 06-02-2022 Albumin [Mass/Vol] 3.6 g/dL 3.2-5.0 [facility] Serum or plasma cholesterol in HDL measurement (mass/volume)Ordered By: Dean Pena on 06-02-2022 Cholesterol in HDL [Mass/Vol] 36 mg/dL >40 [facility] Comment on above: The drugs N-Acetylcy steine and Metamizole may falsely depress this assay. Reference Range HDL <40 mg/dL Low HDL Cholesterol HDL >or= 60 mg/dL High HDL Cholesterol Serum or plasma cholesterol in VLDL measurement (mass/volume)Ordered By: Dean Pena on 06-02-2022 Cholesterol in VLDL [Mass/Vol] [facility] Comment on above: Test not performed Serum or plasma low density lipoprotein (LDL) cholesterol measurement (mass/volume)Ordered By: Dean Pena on 06-02-2022 Cholesterol in LDL [Mass/Vol] [facility] Comment on above: Test not performed Thin prep Papanicolaou smear with manual screeningOrdered By: Dean Pena on 06-02-2022 Thin prep Papanicolaou smear with manual screening 26 U/L 15-37 [facility] Comment on above: Moderate Hemolysis, Result may be falsely increased. Absolute lymphocyte countOrd ered By: Dr. Johnson on 04-19-2022 Lymphocytes Auto (Unsp spec) [#/Vol] 1.77 10*3/uL 0.83-4.51 [facility] Basophil percentageOrdered B y: Dr. Fields on 04-19-2022 Chloride [Moles/Vol] 104 mmol/L 98-107 [facility] Glucose [Mass/Vol] 235 mg/dL 74-106 [facility] Comment on above: Glucose result great er than or equal to 200 mg/dLsuggests DIABETES MELLITUS per A.D.A. criteria. Potassium [Moles/Vol] 4.1 mmol/L 3.5-5.1 [facility] Sodium [Moles/Vol] 137 mmol/L 136-145 [facility] Basophil percentageOrdered B y: Dr. Johnson on 04-19-2022 Basophils/100 WBC (Bld) 0.5 % 0-1 [facility] Eosinophils/100 WBC (Bld) 4.3 % 0-5 [facility] Neutrophils (Bld) [#/Vol] 3.9 10*3/uL 2.0-7.7 [facility] Neutrophils/100 WBC (Bld) 59.9 % 47-70 [facility] WBC (Bld) [#/Vol] 6.6 10*3/uL 4.4-11.0 [facility] Blood erythrocytes count (nu mber/volume)Ordered By: Dr. Johnson on 04-19-2022 RBC (Bld) [#/Vol] 4.82 10*6/uL 4.6-6.2 [facility] Blood hemoglobin measurement (mass/volume)Ordered By: Dr. Johnson on 04-19-2022 Hemoglobin (Bld) [Mass/Vol] 15.4 g/dL 13.0-16.5 [facility] Blood lymphocytes/100 leukoc ytesOrdered By: Dr. Johnson on 04-19-2022 Lymphocytes/100 WBC (Bld) 27.0 % 19-41 [facility] Blood monocytes/100 leukocyt esOrdered By: Dr. Johnson on 04-19-2022 Monocytes/100 WBC (Bld) 7.8 % 0-10 [facility] Blood platelet mean volumeOr dered By: Dr. Johnson on 04-19-2022 Platelet mean volume (Bld) [Entitic vol] 10.2 fL 6.2-12.0 [facility] Determination of erythrocyte mean corpuscular volume (MCV)Ordered By: Dr. Johnson on 04-19-2022 MCV (RBC) [Entitic vol] 95.4 fL 80-94 [facility] Glucose Glucometer (BldC) [M ass/Vol]Ordered By: Dr. Fields on 04-19-2022 Glucose [Mass/Vol] 290 mg/dL 74-106 [facility] Comment on above: MANAGEMENT OF PATIEN T CARE PER NURSING PROTOCOL Hematocrit Auto (Bld) [Volum e fraction]Ordered By: Dr. Johnson on 04-19-2022 Hematocrit (Bld) [Volume fraction] 46.0 % 40-54 [facility] INR in Blood by Coagulation assayOrdered By: Dr. Fields on 04-19-2022 INR Coag (Bld) [Relative time] 1.0 {INR} [facility] Laboratory - Chemistry and C hemistry - challengeOrdered By: Dr. Fields on 04-19-2022 CO2 [Moles/Vol] 26.0 mmol/L 21.0-32.0 [facility] Urea nitrogen/Creatinine [Mass ratio] 15.7 mg/mg 10-20 [facility] Laboratory - CoagulationOrde red By: Dr. Fields on 04-19-2022 aPTT Coag (Bld) [Time] 25.0 s 24.1-36.2 [facility] PT Coag (PPP) [Time] 13.0 s 11.7-14.9 [facility] Laboratory - Hematology and Cell countsOrdered By: Dr. Johnson on 04-19-2022 Erythrocyte distribution width (RBC) [Entitic vol] 43.7 fL 35.1-43.9 [facility] Erythrocyte distribution width (RBC) [Ratio] 12.4 % 11.6-14.6 [facility] Immature granulocytes/100 WBC (Bld) 0.500 % 0.0-0.9 [facility] Comment on above: IG% - Immature Granu locytes (promyelocytes, myelocytes and metamyelocytes) > 1% indicates that a LEFT SHIFT is Present. MCH (RBC) [Entitic mass] 32.0 pg 27.0-32.0 [facility] Nucleated RBC/100 WBC (Bld) [Ratio] 0 % 0-5 [facility] MCHC Auto (RBC) [Mass/Vol]Or dered By: Dr. Johnson on 04-19-2022 MCHC (RBC) [Mass/Vol] 33.5 g/dL 32-36 [facility] No Panel InformationOrdered By: Dr. Fields on 04-19-2022 Estimated Creatinine Clearance Calc 79.98 ml/min [facility] Estimated GFR (MDRD) Amer 95 mL/min >60 [facility] Comment on above: GFR Calc Estimated GFR (MDRD) Non-Af Amer 79 mL/min >60 [facility] Comment on above: Non- GFR Calc Platelets bldOrdered By: Dr. Johnson on 04-19-2022 Platelets (Bld) [#/Vol] 254 10*3/uL 150-450 [facility] Serum or plasma calcium brenda urement (mass/volume)Ordered By: Dr. Fields on 04-19-2022 Calcium [Mass/Vol] 8.9 mg/dL 8.5-10.1 [facility] Serum or plasma creatinine m easurement (mass/volume)Ordered By: Dr. Fields on 04-19-2022 Creatinine [Mass/Vol] 1.02 mg/dL 0.70-1.30 [facility] Comment on above: The validity of the calculated GFR & GFRAA in patients over 70 years has not been determined. Clinical correlation is essential. Serum or plasma urea nitroge n measurement (mass/volume)Ordered By: Dr. Fields on 04-19-2022 Urea nitrogen [Mass/Vol] 16 mg/dL 7-18 [facility] Thin prep Papanicolaou smear with manual screeningOrdered By: Dr. Fields on 04-19-2022 Thin prep Papanicolaou smear with manual screening 7 5-15 [facility] Absolute lymphocyte counton 04-18-2022 Lymphocytes Auto (Unsp spec) [#/Vol] 2.31 10*3/uL 0.83-4.51 [facility] Work Phone: Basophil percentageon 2022 Basophils/100 WBC (Bld) 0.5 % 0-1 [facility] Work Phone: Chloride [Moles/Vol] 103 mmol/L 98-107 [facility] Work Phone: Eosinophils/100 WBC (Bld) 4.3 % 0-5 [facility] Work Phone: Glucose [Mass/Vol] 252 mg/dL 74-106 [facility] Work Phone: Comment on above: Moderate Lipemia, Re sult may be falsely increased.Glucose result greater than or equal to 200 mg/dLsuggests DIABETES MELLITUS per A.D.A. criteria. Neutrophils (Bld) [#/Vol] 4.7 10*3/uL 2.0-7.7 [facility] Work Phone: Neutrophils/100 WBC (Bld) 57.7 % 47-70 [facility] Work Phone: Potassium [Moles/Vol] 3.9 mmol/L 3.5-5.1 [facility] Work Phone: Comment on above: Moderate Hemolysis, Result may be falsely increased. Sodium [Moles/Vol] 136 mmol/L 136-145 [facility] Work Phone: WBC (Bld) [#/Vol] 8.1 10*3/uL 4.4-11.0 [facility] Work Phone: Blood erythrocytes count (nu mber/volume)on 04-18-2022 RBC (Bld) [#/Vol] 4.98 10*6/uL 4.6-6.2 [facility] Work Phone: Blood hemoglobin measurement (mass/volume)on 04-18-2022 Hemoglobin (Bld) [Mass/Vol] 16.4 g/dL 13.0-16.5 [facility] Work Phone: Blood lymphocytes/100 leukoc yteson 04-18-2022 Lymphocytes/100 WBC (Bld) 28.6 % 19-41 [facility] Work Phone: Blood monocytes/100 leukocyt eson 04-18-2022 Monocytes/100 WBC (Bld) 8.5 % 0-10 [facility] Work Phone: Blood platelet mean volumeon 04-18-2022 Platelet mean volume (Bld) [Entitic vol] 10.2 fL 6.2-12.0 [facility] Work Phone: Determination of erythrocyte mean corpuscular volume (MCV)on 04-18-2022 MCV (RBC) [Entitic vol] 97.4 fL 80-94 [facility] Work Phone: Hematocrit Auto (Bld) [Volum e fraction]on 04-18-2022 Hematocrit (Bld) [Volume fraction] 48.5 % 40-54 [facility] Work Phone: INR in Blood by Coagulation assayon 04-18-2022 INR Coag (Bld) [Relative time] 1.0 {INR} [facility] Work Phone: Laboratory - Chemistry and C hemistry - challengeon 04-18-2022 CO2 [Moles/Vol] 28.0 mmol/L 21.0-32.0 [facility] Work Phone: Urea nitrogen/Creatinine [Mass ratio] 17.1 mg/mg 10-20 [facility] Work Phone: Laboratory - Chemistry and C hemistry - challengeOrdered By: Dr. Moura on 04-18-2022 Magnesium [Mass/Vol] 1.8 mg/dL 1.6-2.6 [facility] Comment on above: Moderate Hemolysis, Result may be falsely increased. Laboratory - Coagulationon 0 04-18-2022 aPTT Coag (Bld) [Time] 25.6 s 24.1-36.2 [facility] Work Phone: PT Coag (PPP) [Time] 12.3 s 11.7-14.9 [facility] Work Phone: Laboratory - Hematology and Cell countson 04-18-2022 Erythrocyte distribution width (RBC) [Entitic vol] 44.8 fL 35.1-43.9 [facility] Work Phone: Erythrocyte distribution width (RBC) [Ratio] 12.4 % 11.6-14.6 [facility] Work Phone: Immature granulocytes/100 WBC (Bld) 0.400 % 0.0-0.9 [facility] Work Phone: Comment on above: IG% - Immature Granu locytes (promyelocytes, myelocytes and metamyelocytes) > 1% indicates that a LEFT SHIFT is Present. MCH (RBC) [Entitic mass] 32.9 pg 27.0-32.0 [facility] Work Phone: Nucleated RBC/100 WBC (Bld) [Ratio] 0 % 0-5 [facility] Work Phone: MCHC Auto (RBC) [Mass/Vol]on 04-18-2022 MCHC (RBC) [Mass/Vol] 33.8 g/dL 32-36 [facility] Work Phone: No Panel InformationOrdered By: Dr. Fields on 04-18-2022 Troponin I High Sensitivity 1889 pg/mL 3.0-78.0 [facility] Comment on above: Critical Result(s) C alled at: 09:16:37 04/18/2022 by: Rula patel [facility]. Results read back by same. Please Note: New Test Units and Gender Specific Reference Ranges. For more information see Policy Stat Procedure [place] High Sensitivity Troponin (TNIH) and attachments. No Panel Informationon 04-18 Troponin I High Sensitivity 241 pg/mL 3.0-78.0 [facility] Work Phone: Comment on above: Critical Result(s) C alled at: 04:49:49 04/18/2022 by: NICOLE Matthews RN ER. Results read back by same. Please Note: New Test Units and Gender Specific Reference Ranges. For more information see Policy Stat Procedure [place] High Sensitivity Troponin (TNIH) and attachments. Estimated Creatinine Clearance Calc 77.69 ml/min [facility] Work Phone: Estimated GFR (MDRD) Amer 92 mL/min >60 [facility] Work Phone: Comment on above: GFR Calc Estimated GFR (MDRD) Non-Af Amer 76 mL/min >60 [facility] Work Phone: Comment on above: Non- GFR Calc Platelets bldon 04-18-2022 Platelets (Bld) [#/Vol] 254 10*3/uL 150-450 [facility] Work Phone: Serum or plasma calcium brenda urement (mass/volume)on 04-18-2022 Calcium [Mass/Vol] 8.5 mg/dL 8.5-10.1 [facility] Work Phone: Comment on above: Moderate Lipemia, Re sult may be falsely decreased. Serum or plasma creatinine m easurement (mass/volume)on 04-18-2022 Creatinine [Mass/Vol] 1.05 mg/dL 0.70-1.30 [facility] Work Phone: Comment on above: The validity of the calculated GFR & GFRAA in patients over 70 years has not been determined. Clinical correlation is essential. Serum or plasma urea nitroge n measurement (mass/volume)on 04-18-2022 Urea nitrogen [Mass/Vol] 18 mg/dL 7-18 [facility] Work Phone: Thin prep Papanicolaou smear with manual screeningon 04-18-2022 Thin prep Papanicolaou smear with manual screening 5 5-15 [facility] Work Phone: Laboratory - Hematology and Cell countson 04-09-2022 HbA1c (Bld) [Mass fraction] 12.5 % 4.2-6.3 [facility] CNOVon 02-04-2022 CNOV Office Visit (GENSWS ) JAYLEN MEJIA ([id number]) 1960 [place] Date Time Provider Department 02/04/22 [...] non-ST elevation myocardial infarction (NSTEMI) 06/11/[address] Herrera Espinosa Hypertension Other emphysema (HCC) [...] repair of (more content not included)... Normal [facility] CNOVon 01-28-2022 CNOV Office Visit (GENSWS ) JAYLEN MEJIA ([id number]) 1960 [place] Date Time Provider Department 01/28/22 10:30 AM [...] non-ST elevation myocardial infarction (NSTEMI) 06/11/[address] Herrera Espinosa Hypertension Other emphysema (HCC) [...] and ROS (more content not included)... Normal [facility] CT PELVIS WO IVCONon 01-28- 022 CT PELVIS WO IVCON * * *Final Report* * * DATE OF EXAM: Jan 28 2022 10:28AM [facility] 0556 - CT PELVIS WO IVCON [...] Fat-containing left inguinal hernia. Scattered colonic diverticula. Rn Integrity: PSCB Transcribe Date/Time: Jan 29 2022 10:59A Dictated by : ELVA BOWDEN MD This examination was interpreted and the report reviewed and electronically signed by: ELVA BOWDEN MD on Jan 29 2022 11:22AM EST [id number] Normal [facility] CNOVon 01-06-2022 CNOV Office Visit (GENSWS ) JAYLEN MEJIA ([id number]) 1960 M Date Time Provider Department 01/06/22 [...] non-ST elevation myocardial infarction (NSTEMI) 06/11/[address] Herrera Espinosa Hypertension Other emphysema (HCC) [...] gauge x (more content not included)... Normal [facility] Absolute lymphocyte counton 01-01-2022 Lymphocytes Auto (Unsp spec) [#/Vol] 2.63 10*3/uL 0.83-4.51 [facility] Work Phone: Basophil percentageon 2021 Basophils/100 WBC (Bld) 0.3 % 0-1 [facility] Work Phone: Chloride [Moles/Vol] 98 mmol/L 98-107 [facility] Work Phone: Eosinophils/100 WBC (Bld) 3.4 % 0-5 [facility] Work Phone: Glucose [Mass/Vol] 283 mg/dL 74-106 [facility] Work Phone: Comment on above: Moderate Lipemia, Re sult may be falsely increased.Glucose result greater than or equal to 200 mg/dLsuggests DIABETES MELLITUS per A.D.A. criteria. Neutrophils (Bld) [#/Vol] 3.5 10*3/uL 2.0-7.7 [facility] Work Phone: Neutrophils/100 WBC (Bld) 51.0 % 47-70 [facility] Work Phone: [phone] Potassium [Moles/Vol] 4.2 mmol/L 3.5-5.1 [facility] Work Phone: Comment on above: Moderate Hemolysis, Result may be falsely increased. Sodium [Moles/Vol] 133 mmol/L 136-145 [facility] Work Phone: WBC (Bld) [#/Vol] 6.8 10*3/uL 4.4-11.0 [facility] Work Phone: Blood erythrocytes count (nu mber/volume)on 01-01-2022 RBC (Bld) [#/Vol] 4.96 10*6/uL 4.6-6.2 [facility] Work Phone: Blood hemoglobin measurement (mass/volume)on 01-01-2022 Hemoglobin (Bld) [Mass/Vol] 16.4 g/dL 13.0-16.5 [facility] Work Phone: Blood lymphocytes/100 leukoc yteson 01-01-2022 Lymphocytes/100 WBC (Bld) 38.7 % 19-41 [facility] Work Phone: Blood monocytes/100 leukocyt eson 01-01-2022 Monocytes/100 WBC (Bld) 6.3 % 0-10 [facility] Work Phone: Blood platelet mean volumeon 01-01-2022 Platelet mean volume (Bld) [Entitic vol] 10.3 fL 6.2-12.0 [facility] Work Phone: Determination of erythrocyte mean corpuscular volume (MCV)on 01-01-2022 MCV (RBC) [Entitic vol] 93.5 fL 80-94 [facility] Work Phone: [phone] Hematocrit Auto (Bld) [Volum e fraction]on 01-01-2022 Hematocrit (Bld) [Volume fraction] 46.4 % 40-54 [facility] Work Phone: Laboratory - Chemistry and C hemistry - challengeon 01-01-2022 CO2 [Moles/Vol] 30.0 mmol/L 21.0-32.0 [facility] Work Phone: [phone] Urea nitrogen/Creatinine [Mass ratio] 15.3 mg/mg 10-20 [facility] Work Phone: [phone] Laboratory - Hematology and Cell countson 01-01-2022 Erythrocyte distribution width (RBC) [Entitic vol] 41.0 fL 35.1-43.9 [facility] Work Phone: [phone] Erythrocyte distribution width (RBC) [Ratio] 11.9 % 11.6-14.6 [facility] Work Phone: [phone] Immature granulocytes/100 WBC (Bld) 0.300 % 0.0-0.9 [facility] Work Phone: Comment on above: IG% - Immature Granu locytes (promyelocytes, myelocytes and metamyelocytes) > 1% indicates that a LEFT SHIFT is Present. MCH (RBC) [Entitic mass] 33.1 pg 27.0-32.0 [facility] Work Phone: Nucleated RBC/100 WBC (Bld) [Ratio] 0 % 0-5 [facility] Work Phone: [phone] MCHC Auto (RBC) [Mass/Vol]on 01-01-2022 MCHC (RBC) [Mass/Vol] 35.3 g/dL 32-36 [facility] Work Phone: No Panel Informationon 01-01 Estimated GFR (MDRD) Amer 100 mL/min >60 [facility] Work Phone: Comment on above: GFR Calc Estimated GFR (MDRD) Non-Af Amer 82 mL/min >60 [facility] Work Phone: Comment on above: Non- GFR Calc Vitamin D 25-Hydroxy 13.3 ng/mL [facility] Work Phone: Comment on above: Vitamin D 25(OH) Sta tus Range Deficiency <20 ng/mL (50nmol/L) Insufficiency 20 - 30 ng/mL (50 - 75 nmol/L) Sufficiency 30 - 100 ng/mL (75 - 250 nmol/L) Toxicity >100 ng/mL (>250 nmol/L) Platelets bldon 01-01-2022 Platelets (Bld) [#/Vol] 258 10*3/uL 150-450 [facility] Work Phone: Serum or plasma calcium brenda urement (mass/volume)on 01-01-2022 Calcium [Mass/Vol] 8.2 mg/dL 8.5-10.1 [facility] Work Phone: [phone] Comment on above: Moderate Lipemia, Re sult may be falsely decreased. Serum or plasma creatinine m easurement (mass/volume)on 01-01-2022 Creatinine [Mass/Vol] 0.98 mg/dL 0.70-1.30 [facility] Work Phone: Comment on above: The validity of the calculated GFR & GFRAA in patients over 70 years has not been determined. Clinical correlation is essential. Serum or plasma urea nitroge n measurement (mass/volume)on 01-01-2022 Urea nitrogen [Mass/Vol] 15 mg/dL 7-18 [facility] Work Phone: Thin prep Papanicolaou smear with manual screeningon 01-01-2022 Thin prep Papanicolaou smear with manual screening 5 5-15 [facility] Work Phone: Whole blood hemoglobin A1c/t otal hemoglobin ratio (mass fraction)on 01-01-2022 HbA1c (Bld) [Mass fraction] 11.6 % 3.8-5.6 [facility] Work Phone: Comment on above: Normal < 5.7 % Predi abetic 5.7 - 6.4 % Diabetic >or= 6.5 % Please note range changes. 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 Normal [facility] No Panel Informationon 07-18 Influenza Types A,B Direct FA ([facility]) [facility] Work Phone: Basophil percentageon 2021 Chloride [Moles/Vol] 92 mmol/L 98-107 [facility] Work Phone: [phone] Cholesterol [Mass/Vol] 384 mg/dL <200 [facility] simon [facility] Work Phone: [phone] Comment on above: Moderate Icterus, Re sult may be falsely decreased. <200 mg/dL Desirable 200-240 mg/dL Borderline >240 mg/dL High Risk Glucose [Mass/Vol] 351 mg/dL 74-106 [facility] Work Phone: [phone] Comment on above: Moderate Lipemia, Re sult may be falsely increased.Glucose result greater than or equal to 200 mg/dLsuggests DIABETES MELLITUS per A.D.A. criteria. Potassium [Moles/Vol] 4.3 mmol/L 3.5-5.1 [facility] Work Phone: [phone] Comment on above: Moderate Hemolysis, Result may be falsely increased. Sodium [Moles/Vol] 127 mmol/L 136-145 [facility] Work Phone: [phone] Triglyceride [Mass/Vol] mg/dL [facility] Work Phone: [phone] Comment on above: The drugs N-Acetylcy steine and Metamizole may falsely depress this assay. Laboratory - Chemistry and C hemistry - challengeon 06-13-2021 CO2 [Moles/Vol] 29.0 mmol/L 21.0-32.0 [facility] Work Phone: [phone] Urea nitrogen/Creatinine [Mass ratio] 18.6 mg/mg 10-20 [facility] Work Phone: [phone] No Panel Informationon 06-13 Estimated GFR (MDRD) Amer 101 mL/min >60 [facility] Work Phone: [phone] Comment on above: GFR Calc Estimated GFR (MDRD) Non-Af Amer 84 mL/min >60 [facility] Work Phone: [phone] Comment on above: Non- GFR Calc Serum or plasma calcium brenda urement (mass/volume)on 06-13-2021 Calcium [Mass/Vol] 7.1 mg/dL 8.5-10.1 [facility] Work Phone: Comment on above: Moderate Lipemia, Re sult may be falsely decreased. Serum or plasma cholesterol in HDL measurement (mass/volume)on 06-13-2021 Cholesterol in HDL [Mass/Vol] 32 mg/dL [facility] Work Phone: Comment on above: The drugs N-Acetylcy steine and Metamizole may falsely depress this assay. Reference Range HDL <40 mg/dL Low HDL Cholesterol HDL >or= 60 mg/dL High HDL Cholesterol Serum or plasma cholesterol in VLDL measurement (mass/volume)on 06-13-2021 Cholesterol in VLDL [Mass/Vol] 200 mg/dL 5-40 [facility] Work Phone: Comment on above: Previous reported re sult: TNP mg/dLEdited by: JOHN on 06/13/21:1716 Serum or plasma creatinine m easurement (mass/volume)on 06-13-2021 Creatinine [Mass/Vol] 0.97 mg/dL 0.70-1.30 [facility] Work Phone: Comment on above: Moderate Icterus, Re sult may be falsely decreased.The validity of the calculated GFR & GFRAA in patients over 70 years has not been determined. Clinical correlation is essential. Serum or plasma low density lipoprotein (LDL) cholesterol measurement (mass/volume)on 06-13-2021 Cholesterol in LDL [Mass/Vol] TNP [facility] Work Phone: Comment on above: Test not performed Serum or plasma urea nitroge n measurement (mass/volume)on 06-13-2021 Urea nitrogen [Mass/Vol] 18 mg/dL 7-18 [facility] Work Phone: Thin prep Papanicolaou smear with manual screeningon 06-13-2021 Thin prep Papanicolaou smear with manual screening 6 5-15 [facility] Work Phone: Whole blood hemoglobin A1c/t otal hemoglobin ratio (mass fraction)on 06-13-2021 HbA1c (Bld) [Mass fraction] 11.7 % 3.8-5.6 [facility] Work Phone: Comment on above: Normal < 5.7 % Predi abetic 5.7 - 6.4 % Diabetic >or= 6.5 % Please note range changes. CNOVon 04-01-2021 CNOV Office Visit (UCWSTR ) JAYLEN MEJIA ([id number]) 1960 M Date Time Provider Department 04/01/21 8:00 AM MAXX OWEN [facility] During your visit today, we recorded the following information about you: Temperature Pulse Respiration Blood pressure 96.8 degrees 64/minute 18/minute 120/84 Weight 89.6 kg Maxx Owen APRN.[facility] 04/01/2021 8:24 AM Signed Patient Information What [...] the esophagus (more content not included)... Normal [facility] Influenza virus A and B and SARS-CoV-2 (COVID-19) Ag panel - Upper respiratory specim SARS-CoV-2 (COVID-19) RNA HAYDER+probe Ql (Resp) [facility] Work Phone: No Panel Information SARS-CoV-2 & FLU Antigen (Rapid) [facility] Work Phone: Vital Signs Date Time Vital Sign Value Performing Clinician Facility 10-23-2024 20:45-0400 Body temperature 97.8 [degF] Dr. Xiang Rogers DO Work Phone: [facility] 10-23-2024 20:45-0400 Diastolic blood pressure 73 mm[Hg] Dr. Xiang Rogers DO Work Phone: [facility] 10-23-2024 20:45-0400 Heart rate 93 /min Dr. Xiang Rogers DO Work Phone: [facility] 10-23-2024 20:45-0400 Respiratory rate 18 /min Dr. Xiang Rogers DO Work Phone: [facility] 10-23-2024 20:45-0400 SaO2% (BldA) [Mass fraction] 94 % Dr. Xiang Rogers DO Work Phone: [facility] 10-23-2024 20:45-0400 Systolic blood pressure 103 mm[Hg] Dr. Xiang Rogers DO Work Phone: [facility] 10-23-2024 19:03-0400 Body mass index (BMI) [Ratio] 30.2 kg/m2 Dr. Xiang Rogers DO Work Phone: [facility] 10-23-2024 19:03-0400 Body weight 98.[address] Xiang Rogers DO Work Phone: [facility] 10-23-2024 17:54-0400 Body height 180.[address] Xiang Rogers DO Work Phone: [facility] 10-21-2024 16:52-0400 Body temperature 98.2 [degF] Dr. Xiang Rogers DO Work Phone: [facility] 10-21-2024 16:52-0400 Diastolic blood pressure 62 mm[Hg] Dr. Xiang Rogers DO Work Phone: [facility] 10-21-2024 16:52-0400 Heart rate 95 /min Dr. Xiang Rogers DO Work Phone: [facility] 10-21-2024 16:52-0400 Respiratory rate 20 /min Dr. Xiang Rogers DO Work Phone: [facility] 10-21-2024 16:52-0400 SaO2% (BldA) [Mass fraction] 99 % Dr. Xiang Rogers DO Work Phone: [facility] 10-21-2024 16:52-0400 Systolic blood pressure 108 mm[Hg] Dr. Xiang Rogers DO Work Phone: [facility] 10-21-2024 16:26-0400 Body height 180.[address] Xiang Rogers DO Work Phone: [facility] 10-21-2024 16:26-0400 Body mass index (BMI) [Ratio] 27 kg/m2 Dr. Xiang Rogers DO Work Phone: [facility] 10-21-2024 16:26-0400 Body weight 87.[address] Xiang Rogers DO Work Phone: [facility] 10-19-2024 23:27-0400 Body temperature 97.9 [degF] Dr. Xiang Rogers DO Work Phone: [facility] 10-19-2024 23:27-0400 Diastolic blood pressure 76 mm[Hg] Dr. Xiang Rogers DO Work Phone: [facility] 10-19-2024 23:27-0400 Heart rate 98 /min Dr. Xiang Rogers DO Work Phone: [facility] 10-19-2024 23:27-0400 Respiratory rate 16 /min Dr. Xiang Rogers DO Work Phone: [facility] 10-19-2024 23:27-0400 SaO2% (BldA) [Mass fraction] 96 % Dr. Xiang Rogers DO Work Phone: [facility] 10-19-2024 23:27-0400 Systolic blood pressure 114 mm[Hg] Dr. Xiang Rogers DO Work Phone: [facility] 10-19-2024 18:20-0400 Body height 180.[address] Xiang Rogers DO Work Phone: [facility] 10-19-2024 18:20-0400 Body mass index (BMI) [Ratio] 27 kg/m2 Dr. Xiang Rogers DO Work Phone: [facility] 10-19-2024 18:20-0400 Body weight 87.[address] Xiang Rogers DO Work Phone: [facility] 09-27-2024 09:59-0400 Body height 180.[address] Xiang Rogers DO Work Phone: [facility] 09-27-2024 09:59-0400 Body mass index (BMI) [Ratio] 26 kg/m2 Dr. Xiang Rogers DO Work Phone: [facility] 09-27-2024 09:59-0400 Body weight 84.[address] Xiang Rogers DO Work Phone: [facility] 09-27-2024 09:59-0400 Diastolic blood pressure 64 mm[Hg] Dr. Xiang Rogers DO Work Phone: [facility] 09-27-2024 09:59-0400 Heart rate 83 /min Dr. Xiang Rogers DO Work Phone: [facility] 09-27-2024 09:59-0400 Respiratory rate 18 /min Dr. Xiang Rogers DO Work Phone: [facility] 09-27-2024 09:59-0400 Systolic blood pressure 103 mm[Hg] Dr. Xiang Rogers DO Work Phone: [facility] 09-21-2024 14:17-0400 Body temperature 97.8 [degF] Dr. Xiang Rogers DO Work Phone: [facility] 09-21-2024 14:17-0400 Diastolic blood pressure 54 mm[Hg] Dr. Xiang Rogers DO Work Phone: [facility] 09-21-2024 14:17-0400 Heart rate 82 /min Dr. Xiang Rogers DO Work Phone: [facility] 09-21-2024 14:17-0400 Respiratory rate 14 /min Dr. Xiang Rogers DO Work Phone: [facility] 09-21-2024 14:17-0400 SaO2% (BldA) [Mass fraction] 97 % Dr. Xiang Rogers DO Work Phone: [facility] 09-21-2024 14:17-0400 Systolic blood pressure 90 mm[Hg] Dr. Xiang Rogers DO Work Phone: [facility] 09-19-2024 10:52-0400 Body height 180.[address] Xiang Rogers DO Work Phone: [facility] 09-19-2024 10:52-0400 Body weight 87.[address] Xiang Rogers DO Work Phone: [facility] 09-18-2024 15:22-0400 Body mass index (BMI) [Ratio] 26.9 kg/m2 Dr. Xiang Rogers DO Work Phone: [facility] 09-18-2024 14:00-0400 Diastolic blood pressure 70 mm[Hg] Dr. Xiang Rogers DO Work Phone: [facility] 09-18-2024 14:00-0400 Heart rate 103 /min Dr. Xiang Rogers DO Work Phone: [facility] 09-18-2024 14:00-0400 Respiratory rate 20 /min Dr. Xiang Rogers DO Work Phone: [facility] 09-18-2024 14:00-0400 SaO2% (BldA) [Mass fraction] 97 % Dr. Xiang Rogers DO Work Phone: [facility] 09-18-2024 14:00-0400 Systolic blood pressure 120 mm[Hg] Dr. Xiang Rogers DO Work Phone: [facility] 09-18-2024 13:37-0400 Body temperature 98.2 [degF] Dr. Xiang Rogers DO Work Phone: [facility] 09-18-2024 09:51-0400 Body height 180.[address] Xiang Rogers DO Work Phone: [facility] 09-18-2024 09:51-0400 Body mass index (BMI) [Ratio] 26.9 kg/m2 Dr. Xiang Rogers DO Work Phone: [facility] 09-18-2024 09:51-0400 Body weight 87.[address] Xiang Rogers DO Work Phone: [facility] 08-02-2024 11:29-0400 Body mass index (BMI) [Ratio] 26.6 kg/m2 Dr. Xiang Rogers DO Work Phone: [facility] 08-02-2024 11:29-0400 Body temperature 96.4 [degF] Dr. Xiang Rogers DO Work Phone: [facility] 08-02-2024 11:29-0400 Body weight 84.[address] Xiang Rogers DO Work Phone: [facility] 08-02-2024 11:29-0400 Diastolic blood pressure 66 mm[Hg] Dr. Xiang Rogers DO Work Phone: [facility] 08-02-2024 11:29-0400 Heart rate 87 /min Dr. Xiang Rogers DO Work Phone: [facility] 08-02-2024 11:29-0400 Respiratory rate 16 /min Dr. Xiang Rogers DO Work Phone: [facility] 08-02-2024 11:29-0400 SaO2% (BldA) [Mass fraction] 98 % Dr. Xiang Rogers DO Work Phone: [facility] 08-02-2024 11:29-0400 Systolic blood pressure 118 mm[Hg] Dr. Xiang Rogers DO Work Phone: [facility] 07-29-2024 23:02-0400 Body temperature 97.2 [degF] Dr. Xiang Rogers DO Work Phone: [facility] 07-29-2024 23:02-0400 Diastolic blood pressure 69 mm[Hg] Dr. Xiang Rogers DO Work Phone: [facility] 07-29-2024 23:02-0400 Heart rate 82 /min Dr. Xiang Rogers DO Work Phone: [facility] 07-29-2024 23:02-0400 Respiratory rate 16 /min Dr. Xiang Rogers DO Work Phone: [facility] 07-29-2024 23:02-0400 SaO2% (BldA) [Mass fraction] 95 % Dr. Xiang Rogers DO Work Phone: [facility] 07-29-2024 23:02-0400 Systolic blood pressure 117 mm[Hg] Dr. Xiang Rogers DO Work Phone: [facility] 07-29-2024 20:00-0400 Body mass index (BMI) [Ratio] 26.8 kg/m2 Dr. Xiang Rogers DO Work Phone: [facility] 07-29-2024 20:00-0400 Body weight 87.[address] Xiang Rogers DO Work Phone: [facility] 07-14-2024 10:05-0400 Body temperature 98.2 [degF] Dr. Xiang Rogers DO Work Phone: [facility] 07-14-2024 10:05-0400 Body weight 85.[address] Xiang Rogers DO Work Phone: [facility] 07-14-2024 10:05-0400 Diastolic blood pressure 60 mm[Hg] Dr. Xiang Rogers DO Work Phone: [facility] 07-14-2024 10:05-0400 Heart rate 90 /min Dr. Xiang Rogers DO Work Phone: [facility] 07-14-2024 10:05-0400 Respiratory rate 16 /min Dr. Xiang Rogers DO Work Phone: [facility] 07-14-2024 10:05-0400 SaO2% (BldA) [Mass fraction] 96 % Dr. Xiang Rogers DO Work Phone: [facility] 07-14-2024 10:05-0400 Systolic blood pressure 113 mm[Hg] Dr. Xiang Rogers DO Work Phone: [facility] 07-12-2024 10:03-0400 Body mass index (BMI) [Ratio] 25.9 kg/m2 Dr. Xiang Rogers DO Work Phone: [facility] 07-12-2024 10:03-0400 Body weight 84.[address] Xiang Rogers DO Work Phone: [facility] 07-12-2024 10:03-0400 Diastolic blood pressure 72 mm[Hg] Dr. Xiang Rogers DO Work Phone: [facility] 07-12-2024 10:03-0400 Heart rate 84 /min Dr. Xiang Rogers DO Work Phone: [facility] 07-12-2024 10:03-0400 Respiratory rate 20 /min Dr. Xiang Rogers DO Work Phone: [facility] 07-12-2024 10:03-0400 SaO2% (BldA) [Mass fraction] 96 % Dr. Xiang Rogers DO Work Phone: [facility] 07-12-2024 10:03-0400 Systolic blood pressure 120 mm[Hg] Dr. Xiang Rogers DO Work Phone: [facility] 06-20-2024 10:00-0400 Body temperature 98.1 [degF] Dr. Xiang Rogers DO Work Phone: [facility] 06-20-2024 10:00-0400 Diastolic blood pressure 68 mm[Hg] Dr. Xiang Rogers DO Work Phone: [facility] 06-20-2024 10:00-0400 Heart rate 74 /min Dr. Xiang Rogers DO Work Phone: [facility] 06-20-2024 10:00-0400 Respiratory rate 16 /min Dr. Xiang Rogers DO Work Phone: [facility] 06-20-2024 10:00-0400 SaO2% (BldA) [Mass fraction] 99 % Dr. Xiang Rogers DO Work Phone: [facility] 06-20-2024 10:00-0400 Systolic blood pressure 112 mm[Hg] Dr. Xiang Rogers DO Work Phone: [facility] 06-20-2024 04:34-0400 Body mass index (BMI) [Ratio] 26.7 kg/m2 Dr. Xiang Rogers DO Work Phone: [facility] 06-20-2024 04:34-0400 Body weight [address] Xiang Rogers DO Work Phone: [facility] 06-19-2024 10:35-0400 Inhaled oxygen flow rate 1 L/min Dr. Xiang Rogers DO Work Phone: [facility] 06-18-2024 05:54-0400 Inhaled oxygen concentration 30 % Dr. Xiang Rogers DO Work Phone: [facility] 05-21-2024 17:26-0500 Body mass index (BMI) [Ratio] 28.1 kg/m2 Dr. Xiang Rogers DO Work Phone: [facility] 05-21-2024 17:26-0500 Body temperature 98.1 [degF] Dr. Xiang Rogers DO Work Phone: [facility] 05-21-2024 17:26-0500 Body weight 88.[address] Xiang Rogers DO Work Phone: [facility] 05-21-2024 17:26-0500 Diastolic blood pressure 83 mm[Hg] Dr. Xiang Rogers DO Work Phone: [facility] 05-21-2024 17:26-0500 Heart rate 102 /min Dr. Xiang Rogers DO Work Phone: [facility] 05-21-2024 17:26-0500 Respiratory rate 16 /min Dr. Xiang Rogers DO Work Phone: [facility] 05-21-2024 17:26-0500 SaO2% (BldA) [Mass fraction] 97 % Dr. Xiang Rogers DO Work Phone: [facility] 05-21-2024 17:26-0500 Systolic blood pressure 115 mm[Hg] Dr. Xiang Rogers DO Work Phone: [facility] 05-17-2024 12:50-0500 Body temperature 98 [degF] Dr. Xiang Rogers DO Work Phone: [facility] 05-17-2024 12:50-0500 Body weight 86.[address] Xiagn Rogers DO Work Phone: [facility] 05-17-2024 12:50-0500 Diastolic blood pressure 70 mm[Hg] Dr. Xiang Rogers DO Work Phone: [facility] 05-17-2024 12:50-0500 Heart rate 90 /min Dr. Xiang Rogers DO Work Phone: [facility] 05-17-2024 12:50-0500 Respiratory rate 16 /min Dr. Xiang Rogers DO Work Phone: [facility] 05-17-2024 12:50-0500 SaO2% (BldA) [Mass fraction] 97 % Dr. Xiang Rogers DO Work Phone: [facility] 05-17-2024 12:50-0500 Systolic blood pressure 108 mm[Hg] Dr. Xiang Rogers DO Work Phone: [facility] 05-03-2024 10:53-0500 Body mass index (BMI) [Ratio] 27.6 kg/m2 Dr. Xiang Rogers DO Work Phone: [facility] 05-03-2024 10:53-0500 Body temperature 97.8 [degF] Dr. Xiang Rogers DO Work Phone: [facility] 05-03-2024 10:53-0500 Body weight 87.[address] Xiang Rogers DO Work Phone: [facility] 05-03-2024 10:53-0500 Diastolic blood pressure 62 mm[Hg] Dr. Xiang Rogers DO Work Phone: [facility] 05-03-2024 10:53-0500 Heart rate 93 /min Dr. Xiang Rogers DO Work Phone: [facility] 05-03-2024 10:53-0500 Respiratory rate 18 /min Dr. Xiang Rogers DO Work Phone: [facility] 05-03-2024 10:53-0500 SaO2% (BldA) [Mass fraction] 97 % Dr. Xiang Rogers DO Work Phone: [facility] 05-03-2024 10:53-0500 Systolic blood pressure 120 mm[Hg] Dr. Xiang Rogers DO Work Phone: [facility] 04-20-2024 07:15-0500 Body weight 87.[address] Xiang Rogers DO Work Phone: [facility] 04-19-2024 08:51-0500 Body mass index (BMI) [Ratio] 27.8 kg/m2 Dr. Xiang Rogers DO Work Phone: [facility] 04-08-2024 13:27-0500 Body temperature 98.2 [degF] Dr. Xiang Rogers DO Work Phone: [facility] 04-08-2024 13:27-0500 Body weight 87.[address] Xiang Rogers DO Work Phone: [facility] 04-08-2024 13:27-0500 Diastolic blood pressure 74 mm[Hg] Dr. Xiang Rogers DO Work Phone: [facility] 04-08-2024 13:27-0500 Heart rate 78 /min Dr. Xiang Rogers DO Work Phone: [facility] 04-08-2024 13:27-0500 Respiratory rate 16 /min Dr. Xiang Rogers DO Work Phone: [facility] 04-08-2024 13:27-0500 SaO2% (BldA) [Mass fraction] 97 % Dr. Xiang Rogers DO Work Phone: [facility] 04-08-2024 13:27-0500 Systolic blood pressure 127 mm[Hg] Dr. Xiang Rogers DO Work Phone: [facility] 04-01-2024 09:51-0500 Body mass index (BMI) [Ratio] 27.8 kg/m2 Dr. Xiang Rogers DO Work Phone: [facility] 04-01-2024 09:51-0500 Body weight 87.[address] Xiang Rogers DO Work Phone: [facility] 04-01-2024 09:51-0500 Diastolic blood pressure 80 mm[Hg] Dr. Xiang Rogers DO Work Phone: [facility] 04-01-2024 09:51-0500 Heart rate 76 /min Dr. Xiang Rogers DO Work Phone: [facility] 04-01-2024 09:51-0500 Respiratory rate 18 /min Dr. Xiang Rogers DO Work Phone: [facility] 04-01-2024 09:51-0500 SaO2% (BldA) [Mass fraction] 99 % Dr. Xiang Rogers DO Work Phone: [facility] 04-01-2024 09:51-0500 Systolic blood pressure 136 mm[Hg] Dr. Xiang Rogers DO Work Phone: [facility] 03-22-2024 11:03-0500 Body temperature 97.8 [degF] Dr. Xiang Rogers DO Work Phone: [facility] 03-22-2024 11:03-0500 Body weight 87.[address] Xiang Rogers DO Work Phone: [facility] 03-22-2024 11:03-0500 Diastolic blood pressure 59 mm[Hg] Dr. Xiang Rogers DO Work Phone: [facility] 03-22-2024 11:03-0500 Heart rate 90 /min Dr. Xiang Rogers DO Work Phone: [facility] 03-22-2024 11:03-0500 Respiratory rate 16 /min Dr. Xiang Rogers DO Work Phone: [facility] 03-22-2024 11:03-0500 SaO2% (BldA) [Mass fraction] 97 % Dr. Xiang Rogers DO Work Phone: [facility] 03-22-2024 11:03-0500 Systolic blood pressure 112 mm[Hg] Dr. Xiang Rogers DO Work Phone: [facility] 02-24-2024 13:07-0500 Body mass index (BMI) [Ratio] 27.9 kg/m2 Dr. Xiang Rogers DO Work Phone: [facility] 02-24-2024 13:07-0500 Body temperature 97.6 [degF] Dr. Xiang Rogers DO Work Phone: [facility] 02-24-2024 13:07-0500 Body weight 88.[address] Xiang Rogers DO Work Phone: [facility] 02-24-2024 13:07-0500 Diastolic blood pressure 76 mm[Hg] Dr. Xiang Rogers DO Work Phone: [facility] 02-24-2024 13:07-0500 Heart rate 72 /min Dr. Xiang Rogers DO Work Phone: [facility] 02-24-2024 13:07-0500 Respiratory rate 16 /min Dr. Xiang Rogers DO Work Phone: [facility] 02-24-2024 13:07-0500 SaO2% (BldA) [Mass fraction] 97 % Dr. Xiang Rogers DO Work Phone: [facility] 02-24-2024 13:07-0500 Systolic blood pressure 126 mm[Hg] Dr. Xiang Rogers DO Work Phone: [facility] 02-24-2024 11:24-0500 Body temperature 98.4 [degF] Dr. Xiang Rogers DO Work Phone: [facility] 02-24-2024 11:24-0500 Body weight 88.[address] Xiang Rogers DO Work Phone: [facility] 02-24-2024 11:24-0500 Diastolic blood pressure 61 mm[Hg] Dr. Xiang Rogers DO Work Phone: [facility] 02-24-2024 11:24-0500 Heart rate 64 /min Dr. Xiang Rogers DO Work Phone: [facility] 02-24-2024 11:24-0500 Respiratory rate 16 /min Dr. Xiang Rogers DO Work Phone: [facility] 02-24-2024 11:24-0500 SaO2% (BldA) [Mass fraction] 98 % Dr. Xiang Rogers DO Work Phone: [facility] 02-24-2024 11:24-0500 Systolic blood pressure 105 mm[Hg] Dr. Xiang Rogers DO Work Phone: [facility] 12-31-2023 09:26-0400 Body mass index (BMI) [Ratio] 25.95 kg/m2 [facility] [employer] Work Phone: [facility] 12-31-2023 09:26-0400 Body temperature 97.5 [degF] [facility] [employer] Work Phone: [facility] 12-31-2023 09:26-0400 Body weight 84.[address] [facility] [employer] Work Phone: [facility] 12-31-2023 09:26-0400 Diastolic blood pressure 75 mm[Hg] [facility] [employer] Work Phone: [facility] 12-31-2023 09:26-0400 Heart rate 78 /min [facility] [employer] Work Phone: [facility] 12-31-2023 09:26-0400 Respiratory rate 18 /min [facility] [employer] Work Phone: [facility] 12-31-2023 09:26-0400 SaO2% (BldA) [Mass fraction] 96 % [facility] [employer] Work Phone: [facility] 12-31-2023 09:26-0400 Systolic blood pressure 126 mm[Hg] [facility] [employer] Work Phone: [facility] 06-02-2023 12:53-0500 Body height 180.[address] Xiang Rogers Work Phone: [facility] 06-02-2023 12:53-0500 Body mass index (BMI) [Ratio] 26.9 kg/m2 Dr. Xiang Rogers Work Phone: [facility] 06-02-2023 12:53-0500 Body temperature 97.4 [degF] Dr. Xiang Rogers Work Phone: [facility] 06-02-2023 12:53-0500 Body weight 87.[address] Xiang Rogers Work Phone: [facility] 06-02-2023 12:53-0500 Diastolic blood pressure 66 mm[Hg] Dr. Xiang Rogers Work Phone: [facility] 06-02-2023 12:53-0500 Heart rate 60 /min Dr. Xiang Rogers Work Phone: [facility] 06-02-2023 12:53-0500 Respiratory rate 18 /min Dr. Xiang Rogers Work Phone: [facility] 06-02-2023 12:53-0500 SaO2% (BldA) [Mass fraction] 96 % Dr. Xiang Rogers Work Phone: [facility] 06-02-2023 12:53-0500 Systolic blood pressure 125 mm[Hg] Dr. Xiang Rogers Work Phone: [facility] 05-24-2023 02:38-0500 Body temperature 97.7 [degF] Dr. Xiang Rogers Work Phone: [facility] 05-24-2023 02:38-0500 Diastolic blood pressure 61 mm[Hg] Dr. Xiang Rogers Work Phone: [facility] 05-24-2023 02:38-0500 Heart rate 71 /min Dr. Xiang Rogers Work Phone: [facility] 05-24-2023 02:38-0500 Respiratory rate 18 /min Dr. Xiang Rogers Work Phone: [facility] 05-24-2023 02:38-0500 SaO2% (BldA) [Mass fraction] 96 % Dr. Xiang Rogers Work Phone: [facility] 05-24-2023 02:38-0500 Systolic blood pressure 99 mm[Hg] Dr. Xiang Rogers Work Phone: [facility] 05-24-2023 00:23-0500 Body height 180.[address] Xiang Rogers Work Phone: [facility] 05-24-2023 00:23-0500 Body mass index (BMI) [Ratio] 25.8 kg/m2 Dr. Xiang Rogers Work Phone: [facility] 05-24-2023 00:23-0500 Body weight [address] Xiang Rogers Work Phone: [facility] [facility] 04-25-2023 17:36-0500 Body temperature 95 [degF] Dr. Xiang Rogers Work Phone: [facility] 04-25-2023 17:36-0500 Diastolic blood pressure 73 mm[Hg] Dr. Xiang Rogers Work Phone: [facility] 04-25-2023 17:36-0500 Heart rate 67 /min Dr. Xiang Rogers Work Phone: [facility] 04-25-2023 17:36-0500 Respiratory rate 18 /min Dr. Xiang Rogers Work Phone: [facility] 04-25-2023 17:36-0500 Systolic blood pressure 139 mm[Hg] Dr. Xiang Rogers Work Phone: [facility] 04-25-2023 15:25-0500 Body height 180.[address] Xiang Rogers Work Phone: [facility] 04-25-2023 15:25-0500 Body mass index (BMI) [Ratio] 26.7 kg/m2 Dr. Xiang Rogers Work Phone: [facility] 04-25-2023 15:25-0500 Body weight 87.[address] Xiang Rogers Work Phone: [facility] 04-25-2023 15:25-0500 SaO2% (BldA) [Mass fraction] 96 % Dr. Xiang Rogers Work Phone: [facility] 04-15-2023 09:24-0500 Body height 180.[address] Xiang Rogers Work Phone: [facility] 04-15-2023 09:24-0500 Body mass index (BMI) [Ratio] 26.9 kg/m2 Dr. Xiang Rogers Work Phone: [facility] 04-15-2023 09:24-0500 Body temperature 97.2 [degF] Dr. Xiang Rogers Work Phone: [facility] 04-15-2023 09:24-0500 Body weight 87.[address] Xiang Rogers Work Phone: [facility] 04-15-2023 09:24-0500 Diastolic blood pressure 70 mm[Hg] Dr. Xiang Rogers Work Phone: [facility] 04-15-2023 09:24-0500 Heart rate 81 /min Dr. Xiang Rogers Work Phone: [facility] 04-15-2023 09:24-0500 Respiratory rate 16 /min Dr. Xiang Rogers Work Phone: [facility] 04-15-2023 09:24-0500 SaO2% (BldA) [Mass fraction] 98 % Dr. Xiang Rogers Work Phone: [facility] 04-15-2023 09:24-0500 Systolic blood pressure 128 mm[Hg] Dr. Xiang Rogers Work Phone: [facility] 01-26-2023 15:28-0400 Body mass index (BMI) [Ratio] 27.3 kg/m2 Dr. Xiang Rogers Work Phone: [facility] 01-26-2023 15:28-0400 Body weight 88.[address] Xiang Rogers Work Phone: [facility] 01-26-2023 15:28-0400 Diastolic blood pressure 56 mm[Hg] Dr. Xiang Rogers Work Phone: [facility] 01-26-2023 15:28-0400 Heart rate 70 /min Dr. Xiang Rogers Work Phone: [facility] 01-26-2023 15:28-0400 Respiratory rate 18 /min Dr. Xiang Rogers Work Phone: [facility] 01-26-2023 15:28-0400 Systolic blood pressure 118 mm[Hg] Dr. Xiang Rogers Work Phone: [facility] 01-13-2023 09:27-0400 Body mass index (BMI) [Ratio] 27 kg/m2 Dr. Xiang Rogers Work Phone: [facility] 01-13-2023 09:27-0400 Body temperature 98.4 [degF] Dr. Xiang Rogers Work Phone: [facility] 01-13-2023 09:27-0400 Body weight 87.[address] Xiang Rogers Work Phone: [facility] 01-13-2023 09:27-0400 Diastolic blood pressure 70 mm[Hg] Dr. Xiang Rogers Work Phone: [facility] 01-13-2023 09:27-0400 Heart rate 61 /min Dr. Xiang Rogers Work Phone: [facility] 01-13-2023 09:27-0400 Respiratory rate 16 /min Dr. Xiang Rogers Work Phone: [facility] 01-13-2023 09:27-0400 SaO2% (BldA) [Mass fraction] 97 % Dr. Xiang Rogers Work Phone: [facility] 01-13-2023 09:27-0400 Systolic blood pressure 120 mm[Hg] Dr. Xiang Rogers Work Phone: [facility] 05-21-2022 01:34-0500 Body height 180.[address] Xiang Rogers Work Phone: [facility] 05-21-2022 01:34-0500 Body mass index (BMI) [Ratio] 29.1 kg/m2 Dr. Xiang Rogers Work Phone: [facility] 05-21-2022 01:34-0500 Body temperature 98.8 [degF] Dr. Xiang Rogers Work Phone: [facility] 05-21-2022 01:34-0500 Body weight 94.[address] Xiang Rogers Work Phone: [facility] 05-21-2022 01:34-0500 Diastolic blood pressure 79 mm[Hg] Dr. Xiang Rogers Work Phone: [facility] 05-21-2022 01:34-0500 Heart rate 74 /min Dr. Xiang Rogers Work Phone: [facility] 05-21-2022 01:34-0500 Respiratory rate 17 /min Dr. Xiang Rogers Work Phone: [facility] 05-21-2022 01:34-0500 SaO2% (BldA) [Mass fraction] 98 % Dr. Xiang Rogers Work Phone: [facility] 05-21-2022 01:34-0500 Systolic blood pressure 143 mm[Hg] Dr. Xiang Rogers Work Phone: [facility] 05-19-2022 13:35-0500 Body mass index (BMI) [Ratio] 28.5 kg/m2 Dr. Xiang Rogers Work Phone: [facility] 05-19-2022 13:35-0500 Body weight 92.[address] Xiang Rogers Work Phone: [facility] 05-19-2022 13:35-0500 Diastolic blood pressure 69 mm[Hg] Dr. Xiang Rogers Work Phone: [facility] 05-19-2022 13:35-0500 Heart rate 62 /min Dr. Xiang Rogers Work Phone: [facility] 05-19-2022 13:35-0500 Respiratory rate 18 /min Dr. Xiang Rogers Work Phone: [facility] 05-19-2022 13:35-0500 SaO2% (BldA) [Mass fraction] 96 % Dr. Xiang Rogers Work Phone: [facility] 05-19-2022 13:35-0500 Systolic blood pressure 128 mm[Hg] Dr. Xiang Rogers Work Phone: [facility] 04-24-2022 13:27-0500 Body mass index (BMI) [Ratio] 28.3 kg/m2 Dr. Xiang Rogers Work Phone: [facility] 04-24-2022 13:27-0500 Body temperature 98.3 [degF] Dr. Xiang Rogers Work Phone: [facility] 04-24-2022 13:27-0500 Body weight 92.[address] Xiang Rogers Work Phone: [facility] 04-24-2022 13:27-0500 Diastolic blood pressure 62 mm[Hg] Dr. Xiang Rogers Work Phone: [facility] 04-24-2022 13:27-0500 Heart rate 61 /min Dr. Xiang Rogers Work Phone: [facility] 04-24-2022 13:27-0500 Respiratory rate 14 /min Dr. Xiang Rogers Work Phone: [facility] 04-24-2022 13:27-0500 SaO2% (BldA) [Mass fraction] 97 % Dr. Xiang Rogers Work Phone: [facility] 04-24-2022 13:27-0500 Systolic blood pressure 104 mm[Hg] Dr. Xiang Rogers Work Phone: [facility] 04-19-2022 14:53-0500 SaO2% (BldA) [Mass fraction] 95 % Dr. Xiang Rogers Work Phone: [facility] 04-19-2022 09:30-0500 Body temperature 97.9 [degF] Dr. Xiang Rogesr Work Phone: [facility] 04-19-2022 09:30-0500 Diastolic blood pressure 77 mm[Hg] Dr. Xiang Rogers Work Phone: [facility] 04-19-2022 09:30-0500 Heart rate 79 /min Dr. Xiang Rogers Work Phone: [facility] 04-19-2022 09:30-0500 Respiratory rate 20 /min Dr. Xiang Rogers Work Phone: [facility] 04-19-2022 09:30-0500 Systolic blood pressure 110 mm[Hg] Dr. Xiang Rogers Work Phone: [facility] 04-18-2022 10:11-0500 Body weight 93.[address] Xiang Rogers Work Phone: [facility] 04-18-2022 05:51-0500 Body temperature 98 [degF] Dr. Xiang Rogers Work Phone: [facility] Work Phone: 04-18-2022 05:51-0500 Diastolic blood pressure 76 mm[Hg] Dr. Xiang Rogers Work Phone: [facility] Work Phone: 04-18-2022 05:51-0500 Heart rate 80 /min Dr. Xiang Rogers Work Phone: [facility] Work Phone: 04-18-2022 05:51-0500 Respiratory rate 18 /min Dr. Xiang Rogers Work Phone: [facility] Work Phone: 04-18-2022 05:51-0500 SaO2% (BldA) [Mass fraction] 92 % Dr. Xiang Rogers Work Phone: [facility] Work Phone: 04-18-2022 05:51-0500 Systolic blood pressure 123 mm[Hg] Dr. Xiang Rogers Work Phone: [facility] Work Phone: 04-18-2022 01:36-0500 Body height 180.[address] Xiang Rogers Work Phone: [facility] Work Phone: 04-18-2022 01:36-0500 Body mass index (BMI) [Ratio] 28.6 kg/m2 Dr. Xiang Rogers Work Phone: [facility] 04-18-2022 01:36-0500 Body weight 93.[address] Xiang Rogers Work Phone: [facility] Work Phone: 04-09-2022 14:00-0500 Body mass index (BMI) [Ratio] 27.4 kg/m2 Dr. Xiang Rogers Work Phone: [facility] 04-09-2022 14:00-0500 Body temperature 98.4 [degF] Dr. Xiang Rogers Work Phone: [facility] 04-09-2022 14:00-0500 Body weight 89.[address] Xiang Rogers Work Phone: [facility] 04-09-2022 14:00-0500 Diastolic blood pressure 78 mm[Hg] Dr. Xiang Rogers Work Phone: [facility] 04-09-2022 14:00-0500 Heart rate 65 /min Dr. Xiang Rogers Work Phone: [facility] 04-09-2022 14:00-0500 Respiratory rate 16 /min Dr. Xiang Rogers Work Phone: [facility] 04-09-2022 14:00-0500 SaO2% (BldA) [Mass fraction] 99 % Dr. Xiang Rogers Work Phone: [facility] 04-09-2022 14:00-0500 Systolic blood pressure 132 mm[Hg] Dr. Xiang Rogers Work Phone: [facility] 03-11-2022 12:30-0500 Body height 180.[address] Xiang Rogers Work Phone: [facility] Work Phone: 03-11-2022 12:30-0500 Body mass index (BMI) [Ratio] 26.9 kg/m2 Dr. Xiang Rogers Work Phone: [facility] 03-11-2022 12:30-0500 Body temperature 98 [degF] Dr. Xiang Rogers Work Phone: [facility] 03-11-2022 12:30-0500 Body weight 87.[address] Xiang Rogers Work Phone: [facility] 03-11-2022 12:30-0500 Diastolic blood pressure 76 mm[Hg] Dr. Xiang Rogers Work Phone: [facility] 03-11-2022 12:30-0500 Heart rate 87 /min Dr. Xiang Rogers Work Phone: [facility] 03-11-2022 12:30-0500 Respiratory rate 16 /min Dr. Xiang Rogers Work Phone: [facility] 03-11-2022 12:30-0500 SaO2% (BldA) [Mass fraction] 97 % Dr. Xiang Rogers Work Phone: [facility] 03-11-2022 12:30-0500 Systolic blood pressure 153 mm[Hg] Dr. Xiang Rogers Work Phone: [facility] 03-01-2022 19:47-0500 Body height 180.[address] Xiang Rogers Work Phone: [facility] Work Phone: 03-01-2022 19:47-0500 Body mass index (BMI) [Ratio] 27.9 kg/m2 Dr. Xiang Rogers Work Phone: [facility] 03-01-2022 19:47-0500 Body temperature 96.8 [degF] Dr. Xiang Rogers Work Phone: [facility] 03-01-2022 19:47-0500 Body weight [address] Xiang Rogers Work Phone: [facility] 03-01-2022 19:47-0500 Diastolic blood pressure 75 mm[Hg] Dr. Xiang Rogers Work Phone: [facility] 03-01-2022 19:47-0500 Heart rate 103 /min Dr. Xiang Rogres Work Phone: [facility] 03-01-2022 19:47-0500 Respiratory rate 16 /min Dr. Xiang Rogers Work Phone: [facility] 03-01-2022 19:47-0500 SaO2% (BldA) [Mass fraction] 94 % Dr. Xiang Rogers Work Phone: [facility] 03-01-2022 19:47-0500 Systolic blood pressure 141 mm[Hg] Dr. Xiang Rogers Work Phone: [facility] 02-04-2022 08:30-0400 Body temperature 98.01 [degF] Yamilka Parekh MD Work Phone: [facility] 02-04-2022 08:30-0400 Body weight 87.18 kg Yamilka Parekh MD Work Phone: [facility] 02-04-2022 08:30-0400 Diastolic blood pressure 74 mm[Hg] Yamilka Parekh MD Work Phone: [facility] 02-04-2022 08:30-0400 Heart rate 80 /min Yamilka Parekh MD Work Phone: [facility] 02-04-2022 08:30-0400 SaO2% (BldA) [Mass fraction] 98 % Yamilka Parekh MD Work Phone: [facility] 02-04-2022 08:30-0400 Systolic blood pressure 128 mm[Hg] Yamilka Parekh MD Work Phone: [facility] 01-28-2022 10:40-0400 Body height 180.3 cm Yamilka Parekh MD Work Phone: [facility] 01-28-2022 10:40-0400 Body temperature 97.3 [degF] Yamilka Parekh MD Work Phone: [facility] 01-28-2022 10:40-0400 Body weight 87.36 kg Yamilka Parekh MD Work Phone: [facility] 01-28-2022 10:40-0400 Diastolic blood pressure 70 mm[Hg] Yamilka Parekh MD Work Phone: [facility] 01-28-2022 10:40-0400 Heart rate 79 /min Yamilka Parekh MD Work Phone: [facility] 01-28-2022 10:40-0400 SaO2% (BldA) [Mass fraction] 98 % Yamilka Parekh MD Work Phone: [facility] 01-28-2022 10:40-0400 Systolic blood pressure 124 mm[Hg] Yamilka Parekh MD Work Phone: [facility] 01-06-2022 09:25-0400 Body height 180.3 cm Yamilka Parekh MD Work Phone: [facility] 01-06-2022 09:25-0400 Body temperature 97.7 [degF] Yamilka Parekh MD Work Phone: [facility] 01-06-2022 09:25-0400 Body weight 88.27 kg Yamilka Parekh MD Work Phone: [facility] 01-06-2022 09:25-0400 Diastolic blood pressure 77 mm[Hg] Yamilka Parekh MD Work Phone: [facility] 01-06-2022 09:25-0400 Heart rate 84 /min Yamilka Parekh MD Work Phone: [facility] 01-06-2022 09:25-0400 SaO2% (BldA) [Mass fraction] 99 % Yamilka Parekh MD Work Phone: [facility] 01-06-2022 09:25-0400 Systolic blood pressure 160 mm[Hg] Yamilka Parekh MD Work Phone: [facility] 01-01-2022 14:08-0400 Body height 180.[address] Xiang Rogers Work Phone: [facility] Work Phone: 01-01-2022 14:08-0400 Body mass index (BMI) [Ratio] 27.3 kg/m2 Dr. Xiang Rogers Work Phone: [facility] Work Phone: 01-01-2022 14:08-0400 Body temperature 98.5 [degF] Dr. Xiang Rogers Work Phone: [facility] Work Phone: 01-01-2022 14:08-0400 Body weight 89.[address] Xiang Rogers Work Phone: [facility] Work Phone: 01-01-2022 14:08-0400 Diastolic blood pressure 64 mm[Hg] Dr. Xiang Rogers Work Phone: [facility] Work Phone: 01-01-2022 14:08-0400 Heart rate 64 /min Dr. Xiang Rogers Work Phone: [facility] Work Phone: 01-01-2022 14:08-0400 Respiratory rate 18 /min Dr. Xiang Rogers Work Phone: [facility] Work Phone: 01-01-2022 14:08-0400 SaO2% (BldA) [Mass fraction] 95 % Dr. Xiang Rogers Work Phone: [facility] Work Phone: 01-01-2022 14:08-0400 Systolic blood pressure 122 mm[Hg] Dr. Xiang Rogers Work Phone: [facility] Work Phone: 12-09-2021 01:16-0400 Diastolic blood pressure 71 mm[Hg] Dr. Xiang Rogers Work Phone: [facility] Work Phone: 12-09-2021 01:16-0400 Heart rate 74 /min Dr. Xiang Rogers Work Phone: [facility] Work Phone: 12-09-2021 01:16-0400 Respiratory rate 19 /min Dr. Xiang Rogers Work Phone: [facility] Work Phone: 12-09-2021 01:16-0400 SaO2% (BldA) [Mass fraction] 95 % Dr. Xiang Rogers Work Phone: [facility] Work Phone: 12-09-2021 01:16-0400 Systolic blood pressure 144 mm[Hg] Dr. Xiang Rogers Work Phone: [facility] Work Phone: 12-08-2021 23:18-0400 Body height 180.[address] Xiang Rogers Work Phone: [facility] Work Phone: 12-08-2021 23:18-0400 Body mass index (BMI) [Ratio] 26.4 kg/m2 Dr. Xiang Rogers Work Phone: [facility] Work Phone: 12-08-2021 23:18-0400 Body temperature 97.9 [degF] Dr. Xiang Rogers Work Phone: [facility] Work Phone: 12-08-2021 23:18-0400 Body weight 86.[address] Xiang Rogers Work Phone: [facility] Work Phone: 09-18-2021 14:32-0400 Body mass index (BMI) [Ratio] 26.7 kg/m2 Dr. Xiang Rogers Work Phone: [facility] Work Phone: 09-18-2021 14:32-0400 Body temperature 97.2 [degF] Dr. Xiang Rogers Work Phone: [facility] Work Phone: 09-18-2021 14:32-0400 Body weight 87.[address] Xiang Rogers Work Phone: [facility] Work Phone: 09-18-2021 14:32-0400 Diastolic blood pressure 70 mm[Hg] Dr. Xiang Rogers Work Phone: [facility] Work Phone: 09-18-2021 14:32-0400 Heart rate 86 /min Dr. Xiang Rogers Work Phone: [facility] Work Phone: 09-18-2021 14:32-0400 Respiratory rate 16 /min Dr. Xiang Rogers Work Phone: [facility] Work Phone: 09-18-2021 14:32-0400 SaO2% (BldA) [Mass fraction] 97 % Dr. Xiang Rogers Work Phone: [facility] Work Phone: 09-18-2021 14:32-0400 Systolic blood pressure 116 mm[Hg] Dr. Xiang Rogers Work Phone: [facility] Work Phone: 07-19-2021 00:14-0400 Heart rate 78 /min Dr. Xiang Rogers Work Phone: [facility] Work Phone: 07-19-2021 00:14-0400 Respiratory rate 18 /min Dr. Xiang Rogers Work Phone: [facility] Work Phone: 07-19-2021 00:14-0400 SaO2% (BldA) [Mass fraction] 95 % Dr. Xiang Rogers Work Phone: [facility] Work Phone: 07-18-2021 20:48-0400 Body height 180.[address] Xiang Rogers Work Phone: [facility] Work Phone: 07-18-2021 20:48-0400 Body mass index (BMI) [Ratio] 26.9 kg/m2 Dr. Xiang Rogers Work Phone: [facility] Work Phone: 07-18-2021 20:48-0400 Body temperature 98.8 [degF] Dr. Xiang Rogers Work Phone: [facility] Work Phone: 07-18-2021 20:48-0400 Body weight 87.[address] Xiang Rogers Work Phone: [facility] Work Phone: 07-18-2021 20:48-0400 Diastolic blood pressure 83 mm[Hg] Dr. Xiang Rogers Work Phone: [facility] Work Phone: 07-18-2021 20:48-0400 Systolic blood pressure 151 mm[Hg] Dr. Xiang Rogers Work Phone: [facility] Work Phone: 07-18-2021 12:52-0400 Body temperature 98.01 [degF] Gab Culver [employer] Work Phone: [facility] 07-18-2021 12:52-0400 Body weight 88 kg Gab Culver [employer] Work Phone: [facility] 07-18-2021 12:52-0400 Diastolic blood pressure 74 mm[Hg] Gab Culver [employer] Work Phone: [facility] 07-18-2021 12:52-0400 Heart rate 100 /min Gab Culver [employer] Work Phone: [facility] 07-18-2021 12:52-0400 Respiratory rate 18 /min Gab Culver [employer] Work Phone: [facility] 07-18-2021 12:52-0400 SaO2% (BldA) [Mass fraction] 96 % Gab Culver [employer] Work Phone: [facility] 07-18-2021 12:52-0400 Systolic blood pressure 122 mm[Hg] Gab Culver [employer] Work Phone: [facility] 06-13-2021 13:57-0500 Body temperature 97.8 [degF] Dr. Xiang Rogers Work Phone: [facility] Work Phone: 06-13-2021 13:57-0500 Body weight 88.[address] Xiang Rogers Work Phone: [facility] Work Phone: 06-13-2021 13:57-0500 Diastolic blood pressure 74 mm[Hg] Dr. Xiang Rogers Work Phone: [facility] Work Phone: 06-13-2021 13:57-0500 Heart rate 68 /min Dr. Xiang Rogers Work Phone: [facility] Work Phone: 06-13-2021 13:57-0500 Respiratory rate 16 /min Dr. Xiang Rogers Work Phone: [facility] Work Phone: 06-13-2021 13:57-0500 SaO2% (BldA) [Mass fraction] 98 % Dr. Xiang Rogers Work Phone: [facility] Work Phone: 06-13-2021 13:57-0500 Systolic blood pressure 130 mm[Hg] Dr. Xiang Rogers Work Phone: [facility] Work Phone: Encounters Encounter Date Encounter Type Care Provider Facility Start: 10-23-2024 End: 10-23-2024 Dr. Xiang Rogers DO Work Phone: -Emergency Department Work Phone: Start: 10-23-2024 End: 10-23-2024 Emergency department patient visit Dr. Xiang Rogers DO Work Phone: -Emergency Department Start: 10-21-2024 End: 10-21-2024 Dr. Xiang Rogers [...] -Emergency Department Start: 10-11-2024 ambulatory Ronit Galvez [employer] Facili ty:[facility] Start: 09-27-2024 End: 09-27-2024 Magaly Abdi PA -[facility] Work Phone: Start: 09-27-2024 End: 09-27-[address] Xiang Rogers DO Work Phone: [facility] Work Phone: Start: 09-21-2024 Dr. Donna Wolff MD -[facility] Work Phone: Start: 09-20-2024 Dr. Seth morales DO -[facility] Work Phone: Start: 09-19-2024 ambulatory Calos Quinn Facility:[facility] Start: 09-19-2024 Dr. Seth morales DO -[facility] Work Phone: Start: 09-18-2024 End: 09-21-2024 ambulatory Clinton Soares Facility:[facility] Start: 09-18-2024 End: 09-21-2024 Evaluation and management of inpatient Dr. Xiang Rogers DO Work Phone: [facility] Work Phone: Start: 09-18-2024 End: 09-21-2024 Dr. Clinton Soares DO -Progressive Care Unit Work Phone: Start: 09-08-2024 End: 09-08-[address] Xiang Rogers DO Work Phone: [facility] Work Phone: Start: 09-08-2024 End: 09-08-2024 Dr. Saúl Flowers MD -[facility] Start: 09-08-2024 End: 09-08-2024 ambulatory Lubna Manley Facility:[facility] Start: 08-02-2024 End: 08-02-2024 Dr. Xiang Will -[facility] Work Phone: Start: 08-02-2024 End: 08-02-2024 ambulatory Xiang Rogers Facility:[facility] Start: 07-29-2024 End: 07-29-2024 Dr. Lawson Castellon DO -Emergency Departmen t Work Phone: Start: 07-29-2024 End: 07-29-2024 Emergency department patient visit Lawson Castellon Facility:[facility] Start: 07-14-2024 End: 07-14-2024 Lubna Manley [facility] Work Phone: Start: 07-14-2024 End: 07-14-2024 ambulatory Xiang Rogers Facility:[facility] Start: 07-12-2024 End: 07-12-2024 Ronit Galvez DEFENSE ATTORNEY-C -[facility] Work Phone: Start: 07-12-2024 End: 07-12-2024 ambulatory Xiang Rogers Facility:[facility] Start: 06-20-2024 ambulatory Xiang Rogers Facilit y:[facility] Start: 06-20-2024 Dr. Seth morales DO -[facility] Work Phone: Start: 06-20-2024 Dr. Calos Quinn MD -[facility] Start: 06-19-2024 Dr. Alexandru Mckeon MD -[facility] Start: 06-19-2024 Dr. Donna Wolff MD -[facility] Work Phone: Start: 06-18-2024 ambulatory Alexandru Mckeon Fa cility:[facility] Start: 06-18-2024 Dr. Alexandru Mckeon MD -[facility] Start: 06-18-2024 ambulatory Steve Esteban Facili ty:[facility] Start: 06-18-2024 End: 06-20-2024 Evaluation and management of inpatient Steve Esteban Facility:[facility] Start: 06-18-2024 End: 06-20-2024 Dr. Seth Carrington DO -Progressive Care Unit Work Phone: Start: 06-15-2024 ambulatory Magaly DEVINE Facility:[facility] Start: 06-15-2024 Non-patient / Non-visit Garret Saldana [facility] Start: 06-15-2024 Magaly frazier PA [facility] Start: 06-13-2024 Non-patient / Non-visit Dr. Saúl talbert MD -[facility] Start: 06-13-2024 End: 06-13-[address] Xiang Rogers DO Work Phone: [facility] Work Phone: Start: 06-13-2024 End: 06-13-2024 Patient encounter procedure Lubna DEVINE -Cardiovascular Services Work Phone: Start: 06-13-2024 End: 06-13-2024 Dr. Saúl Flowers MD -[facility] Start: 06-13-2024 End: 06-13-2024 ambulatory Lubna Manley Facility:[facility] Start: 06-07-2024 ambulatory Xiang Rogers Facilit y:[facility] Start: 05-21-2024 End: 05-21-2024 Dr. Saúl Aguilar DO -Emergency Departme nt Work Phone: Start: 05-21-2024 End: 05-21-2024 Emergency department patient visit Dr. Saúl Aguilar DO -Emergency Department Work Phone: Start: 05-17-2024 End: 05-17-2024 Patient encounter procedure Lubna DEVINE -[facility] Work Phone: Start: 05-17-2024 End: 05-17-2024 Lubna DEVINE -[facility] Work Phone: Start: 05-17-2024 End: 05-17-2024 ambulatory Xiang Rogers Facility:[facility] Start: 05-09-2024 ambulatory Xiang Rogers Facilit y:[facility] Start: 05-09-2024 Non-patient / Non-visit Dr. Ren WESTBROOK -[facility] Start: 05-09-2024 End: 05-09-2024 Patient encounter procedure Magaly DEVINE -Cardiovascular Services Work Phone: Start: 05-09-2024 End: 05-09-2024 ambulatory Magaly DEVINE Facility:[facility] Start: 05-03-2024 End: 05-03-[address] Xiang Will DO -[facility] Work Phone: Start: 05-03-2024 End: 05-03-2024 ambulatory Xiang Rogers Facility:[facility] Start: 04-20-2024 ambulatory Saúl Flowers [facility] Start: 04-20-2024 Non-patient / Non-visit Dr. Saúl talbert MD -[facility] Start: 04-20-2024 End: 04-20-2024 Admission to same day surgery center Dr. Saúl Flowers MD -Integration Project Manager/Special Procedures Work Phone: Start: 04-20-2024 End: 04-20-2024 ambulatory Xiang Rogers Facility:[facility] Start: 04-08-2024 End: 04-08-2024 Patient encounter procedure Lubna DEVINE -[facility] Work Phone: Start: 04-08-2024 End: 04-08-2024 ambulatory Xiang Rogers Facility:[facility] Start: 04-01-2024 End: 04-01-2024 Patient encounter procedure Magaly DEVINE -[facility] Work Phone: Start: 04-01-2024 End: 04-01-2024 ambulatory Xiang Rogers Facility:[facility] Start: 03-29-2024 End: 03-29-2024 Patient encounter procedure Lubna DEVINE -[facility] Work Phone: Start: 03-29-2024 End: 03-29-2024 ambulatory Lubna Manley Facility:[facility] Start: 03-22-2024 End: 03-22-2024 Patient encounter procedure Lubna DEVINE -[facility] Work Phone: Start: 03-22-2024 End: 03-22-2024 ambulatory Xiang Roegrs Facility:[facility] Start: 03-09-2024 ambulatory Jose Small Facili ty:[facility] Start: 03-09-2024 Non-patient / Non-visit Dr. Saúl talbert MD -[facility] Start: 03-09-2024 End: 03-09-2024 Patient encounter procedure Jose Small DPM -Cardiovascular Services Work Phone: Start: 03-09-2024 End: 03-09-2024 ambulatory Jose Small Facility:[facility] Start: 02-24-2024 End: 02-24-[address] Xiang Will DO -[facility] Work Phone: Start: 02-24-2024 End: 02-24-2024 ambulatory Xiang Rogers Facility:[facility] Start: 02-24-2024 End: 02-24-2024 Patient encounter procedure Lubna DEVINE -[facility] Work Phone: Start: 02-24-2024 End: 02-24-2024 ambulatory Xiang Rogers Facility:[facility] Start: 02-23-2024 End: 02-23-2024 ambulatory Ronit Galvez NP Facility:[facility] Start: 01-27-2024 ambulatory Xiang Rogers Facilit y:[facility] Start: 01-07-2024 End: 01-07-2024 ambulatory Xiang Rogers Facility:[facility] Start: 12-31-2023 End: 12-31-2023 Office outpatient visit 25 minutes Gab Culver APRN.CNP Work Phone: [facility] Comment on above: Sinobronchitis (Prim jagjit Dx) Start: 11-13-2023 ambulatory Xiang Rogers Facilit y:[facility] Start: 11-13-2023 End: 11-13-2023 ambulatory Xiang Rogers Facility:[facility] Start: 10-28-2023 End: 10-28-2023 ambulatory Xiang Rogers Facility:[facility] Start: 06-02-2023 End: 06-02-[address] Xiang Rogers Work Phone: [facility] Work Phone: Start: 06-02-2023 End: 06-02-[address] Xiang Rogers Work Phone: [facility] Work Phone: Start: 05-24-2023 End: 05-24-2023 Emergency department patient visit Dr. Xiang Rogers Work Phone: [facility]-Emergency Department Work Phone: Start: 04-25-2023 End: 04-25-2023 Emergency department patient visit Dr. Xiang Rogers Work Phone: [facility]-Emergency Department Work Phone: Start: 04-15-2023 End: 04-15-[address] Xiang Rogers Work Phone: [facility] Work Phone: Start: 04-15-2023 End: 04-15-[address] Xiang Rogers Work Phone: [facility] Work Phone: Start: 01-26-2023 End: 01-26-[address] Xiang Rogers Work Phone: [facility] Work Phone: Start: 01-13-2023 End: 01-13-[address] Xiang Rogers Work Phone: [facility] Work Phone: Start: 06-02-2022 End: 06-02-[address] Xiang Rogers Work Phone: [facility] Work Phone: Start: 06-02-2022 End: 06-02-[address] Xiang Rogers Work Phone: [facility]-Laboratory Start: 05-23-2022 Non-patient / Non-visit Dr. Velazquez Work Phone: [facility] Start: 05-21-2022 End: 05-21-2022 Emergency department patient visit Dr. Xiang Rogers Work Phone: [facility]-Emergency Department Start: 05-19-2022 End: 05-19-[address] Xiang Rogers Work Phone: [facility] Start: 04-24-2022 End: 04-24-[address] Xiang Rogers Work Phone: [facility] Start: 04-21-2022 Non-patient / Non-visit Dr. Velazquez Work Phone: [facility] Start: 04-19-2022 Non-patient / Non-visit Dr. Velazquez Work Phone: [facility] Start: 04-19-2022 Non-patient / Non-visit Dr. Velazquez Work Phone: [facility] Inpatient Physicians Start: 04-18-2022 Non-patient / Non-visit Dr. Velazquez Work Phone: [facility] Start: 04-18-2022 End: 04-19-2022 Evaluation and management of inpatient Dr. Xiang Rogers Work Phone: [facility]-Intensive Care Unit Start: 04-09-2022 End: 04-09-[address] Xiang Rogers Work Phone: [facility] Start: 03-11-2022 End: 03-11-[address] Xiang Rogers Work Phone: [facility] Work Phone: Start: 03-11-2022 End: 03-11-[address] Xiang Rogers Work Phone: [facility] Start: 03-01-2022 End: 03-01-2022 Emergency department patient visit Dr. Xiang Rogers Work Phone: [facility]-Emergency Department Start: 02-04-2022 End: 02-04-2022 ambulatory YAMILKA PAREKH Facility:[facility] Start: 02-04-2022 End: 02-04-2022 Patient encounter procedure Yamilka Parekh MD Work Phone: General Surgery Comment on above: Recurrent left ingui nal hernia (Primary Dx) Start: 01-28-2022 End: 01-28-2022 ambulatory YAMILKA PAREKH Facility:[facility] Start: 01-28-2022 End: 01-28-2022 Patient encounter procedure Yamilka Parekh MD Work Phone: General Surgery Comment on above: Left groin pain (Ruchi frantz Dx) Start: 01-28-2022 End: 01-28-2022 Subsequent hospital visit by physician [facility] (I-Stat) Work Phone: Cat Scan Comment on above: Left groin pain [R10 .32] Start: 01-08-2022 Non-patient / Non-visit Dr. Velazquez Work Phone: [facility] Start: 01-06-2022 End: 01-06-2022 ambulatory YAMILKA PAREKH Facility:[facility] Start: 01-06-2022 End: 01-06-2022 Patient encounter procedure Yamilka Parekh MD Work Phone: General Surgery Comment on above: Left groin pain (Ruchi frantz Dx) Start: 01-01-2022 End: 01-01-[address] Xiang Rogers Work Phone: [facility] Work Phone: Start: 01-01-2022 End: 01-01-[address] Xiang Rogers Work Phone: [facility] Start: 12-08-2021 End: 12-09-2021 Emergency department patient visit Dr. Xiang Rogers Work Phone: [facility]-Emergency Department Start: 09-18-2021 End: 09-18-[address] Xiang Rogers Work Phone: [facility] Start: 07-18-2021 End: 07-19-2021 Emergency department patient visit Dr. Xiang Rogers Work Phone: [facility]-Emergency Department Start: 07-18-2021 End: 07-18-2021 ambulatory YAMILKA PAREKH Facility:[facility] Start: 07-18-2021 End: 07-18-2021 Patient encounter procedure Gab Culver APRN.CNP Work Phone: [facility] Comment on above: URI with cough and c ongestion (Primary Dx) Start: 06-13-2021 End: 06-13-[address] Xiang Rogers Work Phone: [facility]-Laboratory, [place] Start: 04-01-2021 End: 04-01-2021 ambulatory YAMILKA PAREKH [facility] Procedures Date Procedure Procedure Detail Performing Clinician Start: 10-23-2024 Blood count smear [facility] w/mnl difrntl wbc count Dr. Xiang Rogers DO Work Phone: Start: 10-23-[address] Xiang Rogers DO Work Phone: Start: 10-23-2024 Mean corpuscular hemoglobin concentration determination Dr. Xiang Rogers DO Work Phone: Start: 10-23-2024 Nucleated red blood cell count procedure Dr. Xiang Rogers DO Work Phone: Start: 10-23-2024 Platelet mean volume determination Dr. Xiang Rogers DO Work Phone: Start: 10-19-2024 Blood count smear mc rscp [...] Work Phone: Start: 09-18-2024 Blood count smear rscp w/mnl difrntl wbc count Dr. Xiang Rogers DO Work Phone: Start: 09-18-[address] Xiang Rogers DO Work Phone: Start: 09-18-2024 Mean corpuscular hemoglobin concentration determination Dr. iXang Rogers DO Work Phone: Start: 09-18-2024 Nucleated [...] mc rscp w/mnl difrntl wbc count Dr. iXang Rogers DO Work Phone: Start: 06-19-2024 Nucleated [...] 04-25-2023 Plain x-ray of elbow Dr Karen Roegrs Work Phone: Start: 04-25-2023 Radiologic examinati on [...] Adult depression scr eening assessment Gab Culver [employer]PER[employer] Work Phone: Start: 04-06-2006 History of coronary [...] DTaP,Tdap,Td Vaccine (3 - Td or Tdap) [facility] Start: 10-23-2024 [facility] Start: 10-21-2024 [facility] Start: 10-19-2024 [facility] Start: 09-21-2024 Patient discharge [facility] Start: 09-20-2024 [facility] Start: 09-19-2024 [facility] Start: 09-18-2024 Following clinical pathway protocol [facility] Start: 09-18-2024 Ambulation without limitation [facility] Start: 09-18-2024 Assessment of risk o f venous thromboembolism [facility] Start: 09-18-2024 Care regimes management [facility] Start: 09-18-2024 Insertion of cathete r into peripheral vein [facility] Start: 09-18-2024 Measuring intake and output [facility] Start: 09-18-2024 Notification of physician [facility] Start: 09-18-2024 Oxygen therapy [facility] Start: 09-18-2024 Providing care accor ding to standard [facility] Start: 09-18-2024 Referral to service [facility] Start: 09-18-2024 End: 09-18-2024 [facility] Start: 09-18-2024 Hospital admission, emergency, from emergency room, medical nature [facility] Start: 09-18-2024 Verification routine [facility] Start: 09-18-2024 Admission procedure [facility] Start: 09-18-2024 [facility] Start: 09-18-2024 Inhalation therapy procedure [facility] Start: 07-29-2024 [facility] Start: 07-29-2024 End: 07-29-2024 [facility] Start: 06-20-2024 Patient discharge [facility] Start: 06-19-2024 [facility] Start: 06-19-2024 [facility] Start: 06-18-2024 Assessment of risk o f venous thromboembolism [facility] Start: 06-18-2024 Care regimes management [facility] Start: 06-18-2024 Catheterization of vein [facility] Start: 06-18-2024 Continuous pulse oximetry [facility] Start: 06-18-2024 Elevation of head of bed [facility] Start: 06-18-2024 Insertion of cathete r into peripheral vein [facility] Start: 06-18-2024 Measuring intake and output [facility] Start: 06-18-2024 Notification of physician [facility] Start: 06-18-2024 Oxygen therapy [facility] Start: 06-18-2024 Providing care accor ding to standard [facility] Start: 06-18-2024 Referral to brand designer [facility] Start: 06-18-2024 Referral to service [facility] Start: 06-18-2024 Tobacco use cessatio n education [facility] Start: 06-18-2024 Vital signs measurements [facility] Start: 06-18-2024 End: 06-18-2024 [facility] Start: 06-18-2024 Following clinical pathway protocol [facility] Start: 06-18-2024 End: 06-18-2024 Admission procedure [facility] Start: 06-18-2024 Dual pressure sponta neous ventilation support [facility] Start: 06-18-2024 Consultation [facility] Start: 06-18-2024 Inhalation therapy procedure [facility] Start: 06-17-2024 End: 06-18-2024 [facility] Start: 06-11-2024 Urine microalbumin profile DTaP,Tdap,Td Vaccine (2 - Td or Tdap) [facility] Start: 05-21-2024 [facility] Start: 05-21-2024 Airborne precautions [facility] Start: 05-09-2024 Echo tthrc r-t 2d w/wom-mode compl spec&colr d TTE W/DOPPLER COMPLETE [facility] Start: 04-20-2024 Patient discharge [facility] Start: 12-06-2023 Covid-19 Vaccine () Covid-19 Vaccine () [facility] Start: 12-06-2023 Influenza vaccination Influenza Vacc ine (#1) [facility] Start: 05-24-2023 Incision & drainage abscess simple/single I&D ABSCESS SIMPLE/SINGLE [facility] Start: 05-24-2023 [facility] Start: 04-25-2023 [facility] Start: 12-05-2022 Influenza vaccination Influenza Vacc ine (#1) [facility] Start: 05-23-2022 Patient referral [facility] Work Phone: Start: 04-21-2022 Patient referral [facility] Work Phone: Start: 04-19-2022 Patient discharge [facility] Start: 04-18-2022 Patient discharge [facility] Start: 04-18-2022 End: 04-18-2022 Provision of activity privileges [facility] Start: 04-18-2022 Scheduling [facility] Start: 04-18-2022 Vascular disease ris k assessment [facility] Start: 04-18-2022 End: 04-18-2022 Notification of physician [facility] Start: 04-18-2022 Patient education [facility] Start: 04-18-2022 Pulse taking [facility] Start: 04-18-2022 End: 04-18-2022 Taking patient vital signs [facility] Start: 04-18-2022 Wound care [facility] Start: 04-18-2022 End: 04-18-2022 [facility] Start: 04-18-2022 Catheterization of vein [facility] Start: 04-18-2022 Medication not administered [facility] Start: 04-18-2022 Notification of physician [facility] Start: 04-18-2022 [facility] Start: 04-18-2022 Following clinical pathway protocol [facility] Start: 04-18-2022 Assessment of risk o f venous thromboembolism [facility] Start: 04-18-2022 Care regimes management [facility] Start: 04-18-2022 Inhalation therapy procedure [facility] Start: 04-18-2022 Insertion of cathete r into peripheral vein [facility] Start: 04-18-2022 Measuring intake and output [facility] Start: 04-18-2022 Oxygen therapy [facility] Start: 04-18-2022 Providing care accor ding to standard [facility] Start: 04-18-2022 Provision of activit y privileges [facility] Start: 04-18-2022 Referral to brand designer [facility] Start: 04-18-2022 Referral to occupati onal therapist [facility] Start: 04-18-2022 Referral to service [facility] Start: 04-18-2022 Tobacco use cessatio n education [facility] Start: 04-18-2022 [facility] Start: 04-18-2022 Verification routine [facility] Work Phone: Start: 04-18-2022 Admission procedure [facility] Start: 04-18-2022 [facility] Work Phone: Start: 04-06-2022 Depression Assessment Depression Ass essment [facility] Start: 12-05-2021 Influenza vaccination [facility] Start: 04-06-2021 DEPRESSION ASSESSMENT DEPRESSION ASS ESSMENT [facility] Start: 06-06-2020 PROSTATE CANCER SCRE ENING DISCUSSION PROSTATE CANCER SCREENING DISCUSSION [facility] Start: 06-06-2020 Prostate specific an tigen measurement Prostate Cancer Screening Discussion [facility] Start: 2020 Hepatitis B Vaccine (1 of 3 - Risk 3-dose series) Hepatitis B Vaccine (1 of 3 - Risk 3-dose series) [facility] Start: 2020 RSV Vaccine (1 - 1-d ose 60+ series) RSV Vaccine (1 - 1-dose 60+ series) [facility] Start: 2020 RSV Vaccine (1 - Ris k 60-74 years 1-dose series) RSV Vaccine (1 - Risk 60-74 years 1-dose series) [facility] Start: 06-18-2019 ANNUAL PCP TEAM COMMUNITY SERVICE OFFICER MIAN DISEASE VISIT ANNUAL PCP TEAM CHRONIC DISEASE VISIT [facility] Start: 12-23-2017 Adult depression screening assessment DEPRESSION SCREENING [facility] Start: 01-13-2017 3 comp foot exam completed DIABETIC FOOT EXAM [facility] Start: 01-13-2017 Diabetic foot examination Diabetic F oot Exam [facility] Start: 01-13-2017 Hepatitis B surface antibody level LDL CHOLESTEROL [facility] Start: 10-08-2016 PNEUMOCOCCAL (2 - PCV) PNEUMOCOCCAL (2 - PCV) [facility] Start: 10-08-2016 Pneumococcal vaccination [facility] Start: 04-15-2016 Hemoglobin A1c measurement HbA1C [facility] Start: 04-15-2016 Hemoglobin A1c/Hemoglobin.total in Blood HBA1C [facility] Start: 01-22-2015 Influenza vaccination LUNG CANCER [facility] Start: 01-22-2010 Influenza vaccination LUNG CANC[facility] Start: 01-22-2010 Screening for malign ant neoplasm of lung Lung Cancer Screening [facility] Start: 01-22-2010 SHINGRIX VACCINE (1 of 2) NOVA GRIX VACCINE (1 of 2) [facility] [place] Start: 01-22-2005 COLOGUARD (FIT-DNA) COLOGUARD (FIT-D NA) [facility] Start: 01-22-2005 Colonoscopy COLONOSCOPY [facility] Start: 01-22-2005 COLORECTAL CANCER SCREENING COLORECTAL CANCER SCREENING [facility] [place] Start: 01-22-[address] COL[address]OGRAPHY [facility] Start: 01-22-2005 FECAL OCCULT BLOOD FECAL OCCULT BLOO D [facility] [place] Start: 01-22-2005 Screening for malign ant neoplasm of colon [facility] Start: 01-22-2005 SIGMOIDOSCOPY SIGMOIDOSCOPY [facility] Start: 01-22-1979 Urine microalbumin profile DTAP,TDAP,TD (1 - Tdap) [facility] [place] Start: 01-22-1978 ANNUAL PCP TEAM COMMUNITY SERVICE OFFICER MIAN DISEASE VISIT ANNUAL PCP TEAM CHRONIC DISEASE VISIT [facility] [place] Start: 01-22-1978 Anxiety Screening Anxiety Screening [facility] [place] Start: 01-22-1978 Depression Screening Depression Scre ening [facility] [place] Start: 01-22-1978 HIV SCREENING HIV SCREENING [facility] Start: 01-22-1978 HIV screening HIV Screening [facility] Start: 01-22-1970 Glaucoma screening Dilated Retinal E xam [facility] [place] Start: 01-22-1970 Hepatitis B screening URINE ALBUMIN:CREATININE RATIO [facility] [place] Start: 01-22-1970 Hepatitis C antibody , confirmatory test DILATED RETINAL EXAM [facility] [place] Start: 01-22-1965 COVID-19 VACCINE (1) COVID-19 VACCIN E (1) [facility] [place] Start: 1960 COVID-19 VACCINE (#1) COVID-19 VACCI NE (#1) [facility] End: 02-05-2023 Ct pelvis w/o contrast material CT PELVIS WO IVCON Radiology Routine Left groin pain 1 Occurrences starting 01/06/2022 until 02/05/2023 [facility] Work Phone: Comment on above: 1 Occurrences starti ng 01/06/2022 until 02/05/2023 Hemoglobin A1c/Hemoglobin.total in Blood [facility] Work Phone: Hemoglobin A1c/Hemoglobin.total in Blood [facility] Lipid 1996 panel - S belinda or Plasma [facility] Patient Education [facility] Work Phone: Patient referral [facility] Work Phone: Troponin T.cardiac [Mass/volume] in Serum or Plasma by High sensitivity method [facility] Carotid arteries [facility] Heart limited [facility] Immunizations Immunization Date Immunization Notes Care Provider Fa [facility] 04-25-2023 tetanus toxoid, redu jesse diphtheria toxoid, and acellular pertussis vaccine, adsorbed Dr. Xiang Rogers Work Phone: [facility] 12-23-2016 influenza, injectabl e, quadrivalent, contains preservative Gab Culver [employer]E [employer] Work Phone: [facility] 12-23-2016 influenza virus vacc ine, unspecified formulation Ct (I-Stat) Work Phone: [facility] 10-09-2015 pneumococcal polysaccharide vaccine, 23 valent Gab Culver [employer]HAUL CANE BRAKEMAN Work Phone: [facility] Work Phone: 06-11-2014 tetanus toxoid, redu jesse diphtheria toxoid, and acellular pertussis vaccine, adsorbed Dr. Xiang Rogers Work Phone: [facility] Payers Date Payer Category Payer Self-pay [id number] 2023 Unknown LOZADA LOZADA HI X [id number] 2023-Present [phone] [address] [address] [place] [address] O [id number] 2023 Unknown [id number] 2023 Unknown [id number] 2020 Medicaid [employer] [facility] [id number] 2020-Present [phone] [address] [place] [address] Medicaid [id number]. [id number] 2020 Medicaid [id number] [id number]. [id number] 2020 Unknown [id number] 2014 Unknown [facility] TEGAN [id number] Unknown 0 [id number] Unknown [id number] 2.16.840.1.503545.3.579.2.462 Unknown [id number] 2.16.840.1.649224.3.579.2.462 Unknown [id number] 2.16.840.1.318742.3.579.2.462 Unknown [id number] 2.16.840.1.526091.3.579.2.462 Unknown [id number] 2.16.840.1.215444.3.579.2.462 Unknown [id number] 2.16.840.1.668374.3.579.2.462 Unknown [id number] 2.16.840.1.542499.3.579.2.462 Unknown [id number] 2.16.840.1.389367.3.579.2.462 Unknown [id number] 2.16.840.1.688350.3.579.2.462 Unknown [id number] 2.16.840.1.851503.3.579.2.462 Unknown [id number] 2.16.840.1.991766.3.579.2.462 Unknown [id number] 2.16.840.1.479289.3.579.2.462 Unknown [id number] 2.16.840.1.821538.3.579.2.462 Unknown [id number] 2.16.840.1.595420.3.579.2.462 Unknown [id number] 2.16.840.1.457087.3.579.2.462 Unknown [id number] 2.16.840.1.844882.3.579.2.462 Unknown [id number] 2.16.840.1.427798.3.579.2.462 Unknown [id number] 2.16.840.1.863272.3.579.2.462 Unknown [id number] 2.16.840.1.699119.3.579.2.462 Unknown [id number] 2.16.840.1.341542.3.579.2.462 Unknown [id number] 2.16.840.1.141497.3.579.2.462 Unknown [id number] 2.16.840.1.331461.3.579.2.462 Unknown [id number] 2.16.840.1.308104.3.579.2.462 Unknown [id number] 2.16.840.1.529470.3.579.2.462 Unknown [id number] 2.16.840.1.973544.3.579.2.462 Unknown [id number] 2.16.840.1.030303.3.579.2.462 Unknown [id number] 2.16.840.1.701515.3.579.2.462 Unknown [id number] 2.16.840.1.729682.3.579.2.462 Unknown [id number] 2.16.840.1.941442.3.579.2.462 Unknown [id number] 2.16.840.1.230215.3.579.2.462 Unknown [id number] 2.16.840.1.489784.3.579.2.462 Unknown [id number] 2.16.840.1.843936.3.579.2.462 Unknown [id number] 2.16.840.1.262602.3.579.2.462 Unknown [id number] 2.16.840.1.363939.3.579.2.462 Unknown [id number] 2.16.840.1.259296.3.579.2.462 Unknown [id number] 2.16.840.1.316762.3.579.2.462 Unknown [id number] 2.16.840.1.305664.3.579.2.462 Unknown [id number] 2.16.840.1.493466.3.579.2.462 Unknown [id number] 2.16.840.1.273132.3.579.2.462 Unknown [id number] 2.16.840.1.307223.3.579.2.462 Unknown [id number] 2.16.840.1.696653.3.579.2.462 Unknown [id number] 2.16.840.1.232905.3.579.2.462 Unknown [id number] 2.16.840.1.544521.3.579.2.462 Unknown [id number] 2.16.840.1.888040.3.579.2.462 Unknown [id number] 2.16.840.1.499462.3.579.2.462 Unknown [id number] 2.16.840.1.074694.3.579.2.462 Unknown [id number] 2.16.840.1.507498.3.579.2.462 Unknown [id number] 2.16.840.1.033840.3.579.2.462 Unknown [id number] 2.16.840.1.178837.3.579.2.462 Unknown [id number] 2.16.840.1.467690.3.579.2.462 Unknown [id number] 2.16.840.1.756024.3.579.2.462 Social History Date Type Detail Facility Start: 01-06-2022 End: 12-31-2023 Tobacco smoking status NHIS Smokes tobacco daily [facility] Work Phone: History of tobacco use Cigarette Smoker C [facility] Start: 07-18-2021 End: 12-31-2023 Alcohol intake Current non-drinker of alcohol (finding) [facility] Start: 1960 Sex Assigned At Not on file C [facility] Start: 07-08-2021 End: 02-04-2022 Exposure to SARS-CoV-2 (event) Not sure [facility] Start: 07-18-2021 End: 06-02-2023 Tobacco smoking status OHIS Unknown if ever smoked [facility] Start: 04-12-2019 None [facility] Start: 04-12-2019 Spouse/ Signif icant Other [facility] Start: 08-11-2020 Cigarettes [facility] Start: 1960 Sex Assigned At Male W [facility] Start: 01-06-2022 End: 05-02-2022 Cigarettes smoked current (pack per day) - Reported 2 [facility] Start: 01-06-2022 End: 12-31-2023 Tobacco use and exposure Smokeless tobacco non-user [facility] Start: 01-06-2022 Tobacco Comment started at age 14 Cl [facility] Start: 01-28-2022 End: 05-02-2022 Tobacco use panel [facility] National Score (1-10 0), lower number is lower risk Not on file [facility] Start: 06-17-2024 End: 10-21-2024 Tobacco smoking status NHIS Current Heavy tobacco smoker [facility] Start: 06-23-2024 Sex Male (finding) [facility] Start: 10-23-2024 Tobacco smoking stat us [facility] Current Light tobacco smoker [facility] Medical Equipment Procedure Code Equipment Code Equipment Origin al Text Equipment Identifier Dates [id number], [id number], [id number] Start: 01-21-2016 Comment on above: Test blood [...] 04-02-2021 Pen Needle, Diabetic (Comfort Ez Pen Winters) 31 gauge x 5/16" needle Start: 10-28-2023 [...] Functional status Ambulates;Up a d andree;Bathroom Privilege [facility] Work Phone: 09-19-2024 Functional status None [facility] Work Phone: 06-20-2024 Functional status Chair [facility] Work Phone: 04-19-2022 Functional status Ambulates;Up ad andree [facility] Work Phone: Mental Status Date Assessment Result Facility 10-19-2024 Cognitive function Voice/Name [facility] Work Phone: 09-21-2024 Cognitive function Voice/Name [facility] Work Phone: 09-18-2024 Cognitive function Voice/Name [facility] Work Phone: 07-29-2024 Cognitive function Voice/Name [facility] Work Phone: 06-20-2024 Cognitive function Voice/Name [facility] Work Phone: 04-19-2022 Cognitive function Voice/Name [facility] Work Phone: 04-18-2022 Cognitive function Voice/Name [facility] Work Phone: 07-18-2021 Cognitive function Level Of Cons ciousness Awake;Alert;Appropriate [facility] Work Phone: Clinical Notes 06-11-2018 to 10-23-2024 Note Date & Type Note Facility 10-23-2024 Discharge summary Note Date/Time October 23, 2024 8:44pm [facility] Medical Records Department [address] [place] [address] Emergency Department Summary 10/23/24 MR#: [id number] Acct: [id number] Name: JAYLEN MEJIA . Rep #:[id number] : 1960 64 From: Devin Curry MD PCP: Dr. Xiang Rogers, DO Status:RE G ER Location: ED HPI History of Present Illness Chief Complaint: Cellulitis Informant: patient Onset/Context/Timing Onset: Days Context: Gradual Onset Timing: Continuous Current Severity: Mild Maximum Severity: Mild Narrative Narrative: 64-year-old male history of insulin-dependent diabetes, hypertension, UT, COPD, CHF. Recent admission last several weeks for CHF. States has had swelling in his lower extremities but now the red, warm and painful. He said he had breaking of pustules and pus on his legs. He denies any fever or chills. Denies any chest pain or shortness of breath. Prior similar symptoms: No Recent Illness/H[facility]: [facility] Medical History GERD (gastroesophageal reflux disease) [...] Nicotine dependence Atherosclerosis of coronary artery of galena heart without angina pectoris Hyperlipidemia Essential (primary) hypertension Home Medications ?Medication ?Instructions ?Recorded ?Last Taken ?Type blood sugar diagnostic (FreeStyle #50 ea 04/02/21 Unkn own Rx Test strips) blood-glucose meter (FreeStyle #1 ea 04/02/21 Unknown Rx System Kit) lancets 28 gauge (FreeStyle #50 ea 04/02/21 Unknown Rx Lancets) pen needle, diabetic 31 gauge x #100 ea 04/02/21 Unkno wn Rx 3/16" (1st Tier Unifine Pentips Plus) Handicap placard #1 ea 07/22/23 Unknown Rx pen needle, diabetic 31 gauge x #100 ea 10/28/23 Unkno wn Rx 5/16" (Comfort EZ Pen Winters) evolocumab 140 mg/mL subcutaneous 140 mg subcut [...] Unknown Rx tablet Cardiac/Chest Pain #25 tabs clindamycin HCl 300 mg capsule 300 mg PO Q8H 10 days # 30 caps 10/23/24 Unknown Rx (Cleocin HCl) Allergy/AdvReac Type Severity Reaction Status Date / Time amoxicillin Allergy Angioedema Verified 10/23/24 17:55 lindane Allergy Rash Verified 10/23/24 17:55 Family History Father Asthma Alcoholism Arthritis Heart disease Hypertension High cholesterol CVA (cerebral vascular accident) Lung cancer Grandfather Myocardial infarction Surgical History S/P CABG x 4 History of hernia repair History of carotid endarterectomy (01/06/14) H/O coronary artery bypass surgery (2006) History of left heart catheterization (06/11/18) Social History Smoking Status: Light Smoker (<10/day) Tobacco: How many years used: 45 Electronic Cigarette Use: not used second hand exposure: Yes quit status: considering quitting alcohol intake: never substance use type: does not use caffeine: Yes Type: coffee Number of servings: 5 what type of physical activity do you participate in: none ROS ROS ED ROS Narrative Redness to his lower extremities. Swelling. Discomfort. Constitutional Constitutional ED: Denies chills or fever(s) Eyes Eyes: Denies blurry vision ENT ENT ED: Denies ear pain Cardiovascular Cardiovascular: Denies chest pain or palpitations Respiratory/Chest Respiratory/Chest: Denies cough or dyspnea Gastrointestinal Gastrointestinal: Denies abdominal pain Genitourinary Genitourinary ED: Denies dysuria or hematuria Musculoskeletal Musculoskeletal: Denies arthralgias, back pain or myalgias Integumentary Denies abscess or Abrasions Neurologic Neurologic: Denies headache(s) Psychiatric Psychiatric: Denies anxiety or depression Endocrine Endocrinology: Denies cold intolerance Hematologic/Lymphatic Hematologic/Lymphatic: Reports none Allergic/Immunologic Allergic/Immunologic ED: Denies mouth swelling, tongue swelling or urticaria EXAM Physical Exam Narrative Exam Narrative: Six 4-year-old male sitting upright in bed. Vital signs stable afebrile. No acute distress. Pulse ox 97% on room air no hypoxia H EENT exam pupils round react to light. Moist mutes members. No facial droop. Normal speech. Neck nontender no JVD. Lungs clear to auscultation bilaterally. Heart regular rhythm rate about 100 for 6 systolic ejection murmur. Chest wall ribs nontender. Abdomen soft nontender. Moving all 4 extremities. 2+ pitting edemaboth lower extremities. Both feet are swollen as of the lower legs he has 2+ pitting edema. He does have redness warmth and the are tender to palpation consistent with bilateral lower extremity cellulitis. He does have some broken vesicles on his legs. Dorsi plantarflexion intact. Neurologically is awake andalert. Answer question following commands. Const Vital Signs: 10/23/24 17:54 10/23/24 17:55 10/23/24 18:55 Temperature 97.8 F 97.8 F 97.8 F Temperature Source Temporal Oral Oral Pulse Rate 104 H 104 H 89 Respiratory Rate 20 H 20 H 18 Blood Pressure 113/69 113/69 113/64 Blood Pressure Mean 83 83 80 Pulse Ox 97 97 96 Oxygen Delivery Method Room Air Room Air Room Air 10/23/24 19:00 10/23/24 20:00 Temperature 97.8 F 97.8 F Temperature Source Oral Oral Pulse Rate 89 94 Respiratory Rate 18 18 Blood Pressure 113/64 103/73 Blood Pressure Mean 80 83 Pulse Ox 96 96 Oxygen Delivery Method Room Air Room Air Positive well nourished and well developed; Negative for cachectic, contracturesor unkempt General Appearance ED: well developed and NAD; Negative for unkempt, cachectic, contractures, cyanotic, diaphoretic or pallor Nutritional Appearance: Negative for cachectic HEENT Reports moist mucous membranes Eyes PERRL and EOMs intact bilaterally General Eye ED: Negative for pale conjunctiva or scleral icterus Neck no lymphadenopathy, supple and no JVD Chest Wall inspection of chest normal and palpation of chest normal Resp normal respiratory effort and clear to auscultation bilaterally Cardio regular rate, regular rhythm, S1 normal heart sound and S2 normal heart sound; Negative for no murmurs GI normal to inspection, nondistended, normoactive bowel sounds, non-tender, non-distended and no masses Palpation: soft; Negative for tender, guarding or rebound tenderness present Back/Spine no CVA tenderness Extremity Negative for normal to inspection Extremity Narrative: Bilateral lower extremity cellulitis. Bilateral 2+ pitting edema. Bilateral tenderness. No lymphangitic streaking. No inguinal lymphadenopathy. Normal dorsi plantarflexion. No compartment. General Extremety ED: Yes edema and tenderness General Extremity: edema Neuro oriented x3 and CN's II-XII intact bilaterally Sensorium / Orientation: alert Motor Exam: strength 5/5 throughout Psych mental status grossly normal Appearance: Negative for unkempt Skin No no rashes or lesions noted, no wounds and skin turgor normal General Skin Exam: Negative for jaundice or pallor Rashes: rashes noted MDM MDM MDM Narrative Medical decision making narrative: 64-year-old male with cardiac history, insulin-dependent diabetes history of CHF. Presents with bilateral lower extremity redness, discomfort swelling consistent with cellulitis and peripheral edema most likely CHF. Screening labswill be obtained. He has a allergy to penicillin will be started on clindamycinfor cellulitis. Most likely he will need to be admitted. Repeat exam patient is doing well at 8:32 PM legs are still swollen or not is red. They are currently not warm. He is comfortable being discharged to home. There is a young female here with him. He will be placed on clindamycin 3 timesdaily for 10 days. Outpatient follow-up this week with his primary care physician Dr. Rebel Rogers. He knows to return if worse. He is already on a diuretic at home. History & Record Review Discussion w/independent historian: Patient Additional record(s) reviewed:: Prior inpatient record, Prior outpatient record,Prior ED visit and Prior labs Lab Data Attestation: I reviewed the patient's lab results. Lab results narrative: CBC shows a white count 6.9. H&H 14 and 42. Platelets 255. Chemistries show a gap of 12. Normal BUN and creatinine. Glucose 256. Labs: Laboratory Results - last 24 hr 10/23/24 18:02 WBC 6.9 RBC 4.55 L Hgb 14.0 Hct 42.4 MCV 93.2 MCH 30.8 MCHC 33.0 RDW Std Deviation 43.9 RDW Coeff of Maycol 12.8 Plt Count 255 MPV 10.0 Immature Gran % (Auto) 0.100 Neut % (Auto) 68.5 Lymph % (Auto) 21.6 [place] % (Auto) 6.1 Eos % (Auto) 3.4 Baso % (Auto) 0.3 Absolute Neuts (auto) 4.7 Absolute Lymphs (auto) 1.48 Nucleated RBC % 0 Sodium 138 Potassium 3.9 Chloride 100 Carbon Dioxide 26.0 Anion Gap 12 BUN 18 Creatinine 1.00 Estim Creat Clear Calc 89.11 Est GFR (MDRD) Non-Af 84 BUN/Creatinine Ratio 18.2 Glucose 256 H Calcium 9.3 Discharge Plan Triage Chief Complaint: Cellulitis ED Provider: Devin Curry Dx/Rx/DC Orders Clinical Impression: Edema, peripheral, Cellulitis, History of heart failure, History of diabetes mellitus Instructions: ED Cellulitis, ED Heart Failure, Congestive (CHF) Prescriptions: New clindamycin HCl [Cleocin HCl] 300 mg capsule 300 mg PO Q8H 10 Days Qty: 30 0RF No Action (DME) Handicap placard See Rx Instructions .Route .MEDSUPPLY Qty: 1 0RF Rx Instructions: Due to COPD, unable to walk 50 yards without assistance, duration 5 years. (DME) pen needle, diabetic [Comfort EZ Pen Winters] 31 gauge x 5/16" needle See Rx Instructions .Route Qty: 100 [...] Tier Unifine Pentips Plus] 31 gauge x 3/16" needle See Rx Instructions .ROUTE .MEDSUPPLY Qty: 100 1RF Rx Instructions: use with lantus nightly Repatha SureClick 140 mg/mL pen injector 140 mg subcut Q2W Qty: 6 3RF omeprazole 20 mg capsule,delayed release(DR/EC) 20 mg PO DAILY Qty: 90 1RF Primary Care Provider: Xiang Rogers Referrals: Xiang Rogers, DO [Primary Care Provider] - 3-5 Days Activity Restrictions/Additional Instructions: The antibiotic clindamycin 1 pill 3 times a day till gone. Take it with food onyour stomach. This is to treat any possible infection in your leg. Continue your medication and makes you urinate a lot at home to decrease the swelling. Elevate your legs. Follow-up with your primary care physician for repeat evaluation later this week. Return if feeling worse. Print Language: [place] Disposition Disposition: Home, Self Care What to do if you have Problems For any increased pain, shortness of breath, bleeding, nausea or vomiting, chestpain, or any unexpected problems, contact your Primary Care Provider. Call [facility] ([phone]) or report to the closest Emergency Room. Call 911 if necessary. 10/23/242043 <Electronically signed by Devin Curry MD> Cosigner Signature (if applicable): CC: Dr. Xiang Rogers, DO ~ Signed [facility] Work Phone: 1(125) 888-527407-20-2025 Hospital Discharge instructionsAdditional Instructions The antibiotic clindamycin 1 pill 3 times a day till gone. Take it with food on your stomach. This is to treat any possible infection in your leg. Continue your medication and makes you urinate a lot at home to decrease the swelling. Elevate your legs. Follow-up with your primary care physician for repeat evaluation later this week. Return if feeling worse.[facility] Work Phone: 1(342) 770-229707-16-2025 Radiology Diagnostic study [facility]07-16-2025 Discharge summary Author Valentín Miller [facility] Note Date/Time October 19, 2024 11:2 1pm [facility] Medical Records Department [address] [place] [address] Emergency Department Summary 10/19/24 MR#: [id number] Acct: [id number] Name: ROBERTOJAYLEN L Sr. Rep #:[id number] : 1960 64 From: Valentín Saravia PCP: Dr. Xiang Rogers, DO Status:RE G ER Location: ED HPI History of Present Illness Chief Complaint: Chest Pain [facility] Medical History GERD (gastroesophageal reflux disease) Anxiety [...] Nicotine dependence Atherosclerosis of coronary artery of galena heart without angina pectoris Hyperlipidemia Essential (primary) hypertension Home Medications ?Medication ?Instructions ?Recorded ?Last Taken ?Type blood sugar diagnostic (FreeStyle #50 ea 04/02/21 Unkn own Rx Test strips) blood-glucose meter (FreeStyle #1 ea 04/02/21 Unknown Rx System Kit) lancets 28 gauge (FreeStyle #50 ea 04/02/21 Unknown Rx Lancets) pen needle, diabetic 31 gauge x #100 ea 04/02/21 Unkno wn Rx 3/16" (1st Tier Unifine Pentips Plus) Handicap placard #1 ea 07/22/23 Unknown Rx pen needle, diabetic 31 gauge x #100 ea 10/28/23 Unkno wn Rx 5/16" (Comfort EZ Pen Winters) evolocumab 140 mg/mL subcutaneous 140 mg subcut [...] reviewed, Vital signs reviewed Constitutional: please see mdm HENT: MMM Eyes: Pupils equal round and [...] History obtained from others: none Consults: none [facility] Narrative: The patient was initially tachycardic [...] of breath. The patient ruled out by [facility] high-sensitivity troponin protocol for ACS. It is [...] Discharge home This note was generated with DirectPo[employer] dictation software. It may contain incorrectwords, spelling, [...] % (Auto) 65.7 Lymph % (Auto) 24.7 [place] % (Auto) 6.1 Eos % (Auto) 3.1 [...] evidence of acute cardiopulmonary disease. Reading Location: [id number] Discharge Plan Triage Chief Complaint: Chest Pain [...] (DME) pen needle, diabetic [Comfort EZ Pen Winters] 31 gauge x 5/16" needle See Rx Instructions .Route Qty: 100 [...] Tier Unifine Pentips Plus] 31 gauge x 3/16" needle See Rx Instructions .ROUTE .MEDSUPPLY Qty: [...] for further outpatient evaluationand management. Print Language: [place] Disposition Disposition: Home, Self Care What to do if you have Problems For any increased pain, shortness of breath, bleeding, nausea or vomiting, chestpain, or any unexpected problems, contact your Primary Care Provider. Call [facility] ([phone]) or report to the closest Emergency Room. Call 911 if necessary. 10/19/24 2321 <Electronically signed by Valentín Miller DO> Cosigner Signature (if applicable): CC: Dr. Xiang Rogers DO ~ Signed [facility] Work Phone: 1([phone]) 891-186806-18-2025 Discharge summary Author Donna Wolff [facility] Note Date/Time September 21, 2024 4:22 pm [facility] Medical Records Department [address] [place] [address] Instructions for Home/Discharge Instructions 09/21/24 1537 MR#: [id number] Acct: [id number] Name: JAYLEN MEJIA Sr. Rep #:[id number] [...] When you eat out, ask that the airbrush artist photography not add any salt to your dish. Don't eat fried or greasy foods. Be careful of bottled beverages. They can contain a lot of salt -Call 911 right away if you have: -Severe shortness of breath, such that you can't catch your breath even while resting -Severe chest pain that does not resolve with rest or nitroglycerin -Aneth, foamy mucus with cough and shortness of [...] (DME) pen needle, diabetic [Comfort EZ Pen Winters] 31 gauge x 5/16" needle See Rx Instructions .Route Qty: 100 [...] Tier Unifine Pentips Plus] 31 gauge x 3/16" needle See Rx Instructions .ROUTE .MEDSUPPLY Qty: [...] Order can be placed): Home, Self Care 09/21/241621<Electronically signed by Donna Wolff MD>Donna Wolff MD CC: Dr. Clinton Soares, DO; Dr. Xiang Rogers, DO; Dr. Seth Carrington, DO ~ Signed [facility] Work Phone: 1(257) 656-837106-18-2025 [facility]06-17-2025 Progress note Author Seth Carrington [facility] Note Date/Time September 20, 2024 7:12 pm [facility] Medical Records Department [address] [place] [address] Progress Note - Hospitalist 09/20/241909 MR#: [id number] Acct: [id number] Name: JAYLEN MEJIA . Rep #:[id number] : 1960 64 From: Seth Carrington DO PCP: Dr. Xiang Rogers DO Status:AD IN Location: [place] [address] Hospitalist Note Additional note: Per my review [...] 20 mg daily, Zetia 10 mg daily, Vodrjk46 mg daily. Patient is not taking the following medications: Spironolactone 25 mg daily, Lasix 40 mg twice daily, atorvastatin 80 mg daily, metformin 1000 mg twice daily, Pletal 50 mg daily. 09/20/241911 <Electronically signed by Seth Carrington DO> Cosigner Signature (if applicable): CC: ~ Signed [facility] Work Phone: 1(390) 146-473006-17-2025 Progress note Author Seth Carrington [facility] Note Date/Time September 20, 2024 6:38 pm [facility] Medical Records Department [address] [place] [address] Progress Note - Hospitalist 09/19/241899 MR#: [id number] Acct: [id number] Name: JAYLEN MEJIA . Rep #:[id number] : 1960 64 From: Seth Carrington DO PCP: Dr. Xiang Rogers, DO Status:AD M IN Location: [place] [address] Reason for Visit Reason for Visit: Diagnoses [...] fraction is 35 %. Normal LV size. [place] : Akinetic. Mid-Anterior : Severely Hypokinetic. Compared [...] 50 minutes Charges/Coding Visit Charges Inpatient E&M: 18324 Subs Hosp L3 09/20/24 1838 <Electronically signed by Seth Carrington DO> Cosigner Signature (if applicable): CC: ~ Signed [facility] Work Phone: 1(635) 300-820806-16-2025 Discharge summary Author Saúl Aguilar [facility] Note Date/Time September 18, 2024 10:3 5pm [facility] Medical Records Department [address] [place] [address] Emergency Department Summary 09/18/24 MR#: [id number] Acct: [id number] Name: JAYLEN MEJIA Sr. Rep #:[id number] : 1960 64 From: Saúl Saravia PCP: Dr. Xiang Rogers DO Status:AD M IN Location: [place] [address] HPI History of Present Illness Chief Complaint: [...] Nicotine dependence Atherosclerosis of coronary artery of galena heart without angina pectoris Hyperlipidemia Essential (primary) hypertension Home Medications ?Medication ?Instructions ?Recorded ?Last Taken ?Type blood sugar diagnostic (FreeStyle #50 ea 04/02/21 Unkn own Rx Test strips) blood-glucose meter (FreeStyle #1 ea 04/02/21 Unknown Rx System Kit) lancets 28 gauge (FreeStyle #50 ea 04/02/21 Unknown Rx Lancets) pen needle, diabetic 31 gauge x #100 ea 04/02/21 Unkno wn Rx 3/16" (1st Tier Unifine Pentips Plus) nitroglycerin 0.4 [...] x #100 ea 10/28/23 Unkno wn Rx 516" (Comfort EZ Pen Winters) evolocumab 140 mg/mL subcutaneous 140 mg subcut [...] % (Auto) 61.9 Lymph % (Auto) 27.0 [place] % (Auto) 6.7 Eos % (Auto) 3.7 [...] 10:26 IMPRESSION: No Acute Findings. Reading Location: [facility] Portable 1 view chest x-ray was obtained. [...] asinus tachycardia with a rate of 103. AR interval, QRS interval, and QTc intervals were all normal. [place] was normal. There are nonspecific ST-T wave [...] (DME) pen needle, diabetic [Comfort EZ Pen Winters] 31 gauge x 5/16" needle See Rx Instructions .Route Qty: 100 [...] Tier Unifine Pentips Plus] 31 gauge x 3/16" needle See Rx Instructions .ROUTE .MEDSUPPLY Qty: [...] Primary Care Provider: Xiang Rogers Referrals: Xiang Rogers, DO [Primary Care Provider] - Print Language: [place] Disposition Disposition: Acute Care Hospital [facility] What to do if you have Problems For any increased pain, shortness of breath, bleeding, nausea or vomiting, chestpain, or any unexpected problems, contact your Primary Care Provider. Call [facility] ([phone]) or report to the closest Emergency Room. Call 911 if necessary. 09/18/242234 <Electronically signed by Saúl Aguilar DO> Cosigner Signature (if applicable): CC: Dr. Xiang Rogers, DO ~ Signed [facility] Work Phone: 1([phone]) 475-897206-15-2025 History and physical note Author Clinton Soares [facility] Note Date/Time September 18, 2024 2:16 pm [facility] Medical Records Department [address] [place] [address] H&P Exam - Hospitalist 09/18/24 1339 MR#: [id number] Acct: [id number] Name: JAYLEN MEJIA Sr. Rep #:[id number] : 1960 64 From: Clinton khan DO PCP: Dr. Xiang Rogers, Status:AD M IN Location: [facility] [id number]- [id number] HPI - General General Date of Admission: 09/18/24 Date of Service: 09/18/24 Chief Complaint: Shortness of breath and chest discomfort HPI Narrative JAYLEN MEJIA, is a 64 M who presented to [facility] ED on 09/18/2024 with chest pain and volume overload. [facility] [...] time. Will be admitted for further management. [facility] Medical History GERD (gastroesophageal reflux disease) [...] Nicotine dependence Atherosclerosis of coronary artery of galena heart without angina pectoris Hyperlipidemia Essential (primary) hypertension Home Medications ?Medication ?Instructions ?Recorded ?Last Taken ?Type blood sugar diagnostic (FreeStyle #50 ea 04/02/21 Unkn own Rx Test strips) blood-glucose meter (FreeStyle #1 ea 04/02/21 Unknown Rx System Kit) lancets 28 gauge (FreeStyle #50 ea 04/02/21 Unknown Rx Lancets) pen needle, diabetic 31 gauge x #100 ea 04/02/21 Unkno wn Rx 06/19" (1st Tier Unifine Pentips Plus) nitroglycerin 0.4 [...] x #100 ea 10/28/23 Unkno wn Rx 08/19" (Comfort EZ Pen Winters) evolocumab 140 mg/mL subcutaneous 140 mg subcut [...] % (Auto) 61.9, Lymph % (Auto) 27.0, [place]% (Auto) 6.7, Eos % (Auto) 3.7, Baso [...] 10:26 IMPRESSION: No Acute Findings. Reading Location: [id number] Assessment & Plan Assessment/Plan (1) Acute on chronic HFrEF (heart failure with reduced ejection fraction): PLAN: Plan Patient is a 64-year-old male who presented to [facility] ED on 09/18/2024 with shortness of breath, [...] with A1c values consistently above 10% since [id number]. Repeat A1c ordered. Glucose 184 on admit. [...] 75 minutes. Charges/Coding Visit Charges Inpatient E&M: 29914 Init Hosp L3 09/18/24 1416 <Electronically signed by Clinton Soares DO> Cosigner Signature (if applicable): CC: Dr. Clinton Soares, DO; Dr. Xiang Rogers DO~ Signed [facility] Work Phone: [phone]) 290-652406-15-2025 Radiology Diagnostic study [facility]04-08-2025 Evaluation note* Diagnosis Onset Date Resolution [...] surgery 2007 resolved September 27, 2024 9:55am [facility] Work Phone: [phone]) 116-256303-17-2025 [facility]03-15-2025 Evaluation note* Diagnosis Onset Date Resolution Status [...] June 042024 4:45am Aortic valve stenosis acute Apr 2024 9:51am [...] ejection fraction) chronic September 18, 2024 1:39pm [facility] Work Phone: 1([phone]) 837-705903-15-2025 Evaluation note* Diagnosis Onset Date Resolution Status [...] June 042024 4:45am Aortic valve stenosis acute Apr 2024 9:51am [...] 02, 2024 11:21am Type 2 diabetes mellitus royd ated with insulin acute August 02, 2024 [...] surgery 2007 resolved September 27, 2024 9:55am [facility] Work Phone: 1(350) 862-138903-12-2025 [facility]02-11-2025 Evaluation note* Diagnosis Onset Date Resolution Status [...] dependence chronic August 02, 2024 11:21am [facility] Work Phone: 1(146) 683-395111-20-2024 Evaluation note* Diagnosis Onset Date Resolution Status Admit Date Fissure in skin of right foot acute February 24, 2024 11:07am PAD (peripheral artery disease) acut e February 24, 2024 11:07am Essential (primary) hypertension chr onic February 24, 2024 12:58pm Insulin dependent diabetes mellitus chronic February 23, 024 12:58pm Nicotine dependence chronic Novem 2023 [...] er extremity with ulceration acute y 2024 12:56pm Atherosclerosis of right low er extremity with ulceration acute r y 2024 10:46am Fissure in skin of right foot acute May 03, 2024 10:46am Hypertriglyceridemia acute Caesar jagjit 2024 10:46am Type 2 diabetes mellitus acute May 03, 2024 10:46am 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 Work Phone: [phone]) 603-571509-26-2024 History of Present illness Narrative* Gab Culver APRN.HAUL CANE BRAKEMAN - 12/31/2023 9:33 AM EDT Subjective HPI [...] non-ST elevation myocardial infarction (NSTEMI) 06/11/[address] Herrera Espinosa Hypertension Other emphysema (HCC) [...] of care. This note was generated using DirectPointe software. It may contain errors in wording, punctuation, or spelling. Gab Culver APRN.TURNER documented in [facility] encounter[facility] Hospital Discharge instructions Additional Instructions Your x-ray [...] please return to the [facility] Work Phone: 1(677) 316-456111-01-2022 NoteHNO ID: [id number] Author: Yamilka Parekh MD Service: ? Author [...] non-ST elevation myocardial infarction (NSTEMI) 06/11/[address] Herrera Espinosa Hypertension Other emphysema (HCC) [...] any blood vessels/nerv (more content not included)... [facility]11-01-2022 History of Present illness Narrative* Yamilka [...] non-ST elevation myocardial infarction (NSTEMI) 06/11/[address] Herrera Espinosa Hypertension Other emphysema (HCC) [...] Straightforward Yamilka Parekh MD documented in this encounterSelect [facility]-2022 NoteHNO ID: [id number] Author: Yamilka Parekh MD Service: ? Author [...] non-ST elevation myocardial infarction (NSTEMI) 06/11/[address] Herrera Espinosa Hypertension Other emphysema (HCC) [...] and completing appropriate m (more content not included)...[facility]10-25-20[facility] History of Present illness Narrative* Yamilka [...] non-ST elevation myocardial infarction (NSTEMI) 06/11/[address] Herrera Espinosa Hypertension Other emphysema (HCC) [...] documentation. Yamilka Parekh MD documented in this encounterSelect [facility]-2022 NoteHNO ID: [id number] Author: RT Benji(Suman) Service: ? Author Type: Ethnoarchaeologist Type: Progress Notes Filed: 01/28/2022 3:01 PM [...] BY: RT Betsy(Suman) January 28, 2022 3:01 [facility]10-25-2022 History of Present illness Narrative* Hazel Bright [...] 28, 2022 3:01 PM documented in this encounterSelect Medical [facility]-2022 NoteHNO ID: [id number] Author: Yamilka Parekh MD Service: ? Author [...] non-ST elevation myocardial infarction (NSTEMI) 06/11/[address] Herrera Espinosa Hypertension Other emphysema (HCC) [...] REVIEW OF SYSTEMS: General: (more content not included)...[facility]10-03-2022 History of Present illness Narrative* Yamilka Parekh MD - 01/06/2022 7:04 PM EDT Jaylen Mejai 1960 REFERRING PHYSICIAN: Self CHIEF COMPLAINT: Consult [...] non-ST elevation myocardial infarction (NSTEMI) 06/11/[address] Herrera Espinosa Hypertension Other emphysema (HCC) [...] entered by the nurse and reviewed by ct Nursing Notes: Allison Haines RN 01/06/2022 9:32 [...] of any pertinent laboratory studies/radiological imaging/medical records, tyxk-sf-pagbphgctge care, obtaining oral medical history from the patient in this encounter, performing a medically appropriate examination, counseling and educating the patient/family/caregiver, and ordering and/or scheduling of medications/tests/procedures, and completing appropriate medical documentation. Yamilka Parekh MD documented in this encounterSelect Medical [facility]-03-20[facility] Nurse Note* Allison Haines RN - 01/06/2022 [...] Unknown Allison Haines RN documented in this encounterSelect Medical [facility]-14-2022 NoteHNO ID: [id number] Author: Gab Culver APRN.HAUL CANE BRAKEMAN Service: ? Author Type: Nurse Practitioner Type: [...] type 2 in obese (HCC) - Hyperlipidemia Web Programmer Dr. Herrera Espinosa - Hypertension - Pancreatitis [...] He is not diaphoretic (more content not included)...[facility]04-14-2022 Instructions* Patient Instructions* Gab Culver APRN.HAUL CANE BRAKEMAN - 07/18/2021 1:15 PM EDT RESPIRATORY INFECTION [...] spread by coughs, sneezes, anddirect contact, especially [id number]. A respiratory tract infection usually clears up [...] 102 F (39 C). documented in this encounterSelect Medical [facility]-14-2022 History of Present illness Narrative* Gab Culver APRN.TURNER - 07/18/2021 1:02 PM EDT Subjective HPI [...] mellitus type 2 in obese (HCC) Hyperlipidemia Web Programmer Dr. eHrrera Espinosa Hypertension Pancreatitis Tobacco use disorder PAST [...] - Dx: Type 2 DM - Uncontrolled blood sugar diagnostic (BLOOD GLUCOSE TEST) test [...] of care. This note was generated using DirectPointe software. It may contain errors in wording,punctuation, or spelling. Gab Culver APRN.HAUL CANE BRAKEMAN documented in this encounterSelect Medical [facility]12-27-2021 NoteHNO ID: [id number] Author: Maxx Owen APRN.TURNER Service: ? Author [...] type 2 in obese (HCC) - Hyperlipidemia Web Programmer Dr. Herrera Espinosa - Hypertension - Pancreatitis [...] see if it reli (more content not included)...[facility]03-08-2019 Evaluation note* Diagnosis Onset Date Resolution [...] diabetes mellitus chronic Nicotine dependence chronic 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 Work Phone: Evaluation note* Diagnosis Onset Date Resolution Status Essential (primary) hypertension chronic Insulin dependent diabetes mellitus chronic Stenosis of right carotid artery chronic H/O coronary artery bypass surgery 2006 resolved [facility] Work Phone: Evaluation note* Diagnosis Onset Date Resolution Status Essential (primary) hypertension chronic Insulin dependent diabetes mellitus chronic Stenosis of right carotid artery chronic H/O coronary artery bypass surgery 2006 resolved Essential (primary) hypertension chronic Insulin dependent diabetes mellitus chronic Stenosis of right carotid artery chronic [facility] Work Phone: evaluation note* Diagnosis Left groin pain- Primary Abdominal pain, left lower quadrant [facility] Diagnosis Left groin pain- Primary Abdominal pain, left lower quadrant documented [facility]* Diagnosis Recurrent left inguinal hernia- Primary Inguinal hernia without mention of obstruction or gangrene, recurrent unilateral or unspecified documented in this encounter [facility]* Diagnosis Onset Date Resolution Status Essential (primary) hypertension chronic Insulin dependent diabetes mellitus chronic Stenosis of right carotid artery [facility] Work Phone: evaluation note* Diagnosis Onset Date Resolution Status Essential (primary) hypertension chronic Insulin dependent diabetes mellitus chronic Stenosis of right carotid artery chronic [id number] acute Nicotine dependence [facility] Work Phone: Evaluation note* Diagnosis Onset Date Resolution Status Essential (primary) hypertension chronic Insulin dependent diabetes mellitus chronic Stenosis of right carotid artery chronic [id number] acute Nicotine dependence chronic Essential (primary) hypertension chronic Hyperlipidemia chronic Insulin dependent diabetes mellitus chronic H/O coronary artery bypass surgery 2007 resolved NSTEMI, initial episode of care acute Insulin dependent diabetes mellitus chronic Nicotine dependence [facility] Work Phone: Evaluation note* Diagnosis Onset Date Resolution Status [id number] acute Nicotine dependence chronic Essential (primary) hypertension chronic Hyperlipidemia chronic Insulin dependent diabetes mellitus chronic H/O coronary artery bypass surgery 2007 resolved Essential (primary) hypertension chronic Hyperlipidemia chronic [...] coronary artery bypass surgery 2007 resolved 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 Work Phone: Evaluation note* Diagnosis Sinobronchitis- Primary Unspecified sinusitis (chronic) documented in this encounter [facility] and physical note Author Clinton [facility]University [facility] Note Date/Time September 18, 2024 2:16 pm [facility] Medical Records Department [address] [place] [address] H&P Exam - Hospitalist 09/18/24 1339 MR#: [id number] Acct: [id number] Name: JAYLEN MEJIA Hannah . Rep #:[id number] : 1960 64 From: Clinton khan DO PCP: Dr. Xiang Rogers, DO Status:AD M IN Location: [facility] [id number]- 1 HPI - General General Date of Admission: 09/18/24 Date of Service: 09/18/24 Chief Complaint: Shortness of breath and chest discomfort HPI Narrative JAYLEN MEJIA, is a 64 M who presented to [facility] ED on 09/18/2024 with chest pain and volume overload. Patient was hospitalized here [facility] for similar presentation. Has history of CABG [...] time. Will be admitted for further management. [facility] Medical History GERD (gastroesophageal reflux disease) [...] Nicotine dependence Atherosclerosis of coronary artery of galena heart without angina pectoris Hyperlipidemia Essential (primary) hypertension Home Medications ?Medication ?Instructions ?Recorded ?Last Taken ?Type blood sugar diagnostic (FreeStyle #50 ea 04/02/21 Unkn own Rx Test strips) blood-glucose meter (FreeStyle #1 ea 04/02/21 Unknown Rx System Kit) lancets 28 gauge (FreeStyle #50 ea 04/02/21 Unknown Rx Lancets) pen needle, diabetic 31 gauge x #100 ea 04/02/21 Unkno wn Rx 16" (1st Tier Unifine Pentips Plus) nitroglycerin 0.4 [...] x #100 ea 10/28/23 Unkno wn Rx 08/19" (Comfort EZ Pen Winters) evolocumab 140 mg/mL subcutaneous 140 mg subcut [...] % (Auto) 61.9, Lymph % (Auto) 27.0, [place]% (Auto) 6.7, Eos % (Auto) 3.7, Baso [...] 10:26 IMPRESSION: No Acute Findings. Reading Location: [id number] Assessment & Plan Assessment/Plan (1) Acute on chronic HFrEF (heart failure with reduced ejection fraction): PLAN: Plan Patient is a 64-year-old male who presented to [facility] on 09/18/2024 with shortness of breath, [...] with A1c values consistently above 10% since [id number]. Repeat A1c ordered. Glucose 184 on admit. [...] 75 minutes. Charges/Coding Visit Charges Inpatient E&M: 41835 Init Hosp L3 09/18/24 1416 <Electronically signed by Clinton Soares DO> Cosigner Signature (if applicable): CC: Dr. Clinton Soares, DO; Dr. Xiang Rogers, DO~ Signed [facility] Work Phone: Hospital Discharge instructionsAdditional Instructions Thank you for trusting us with your care today! Please take prescribed Lasix. Please return to the emergency department if your symptoms change or worsen. Specifically develop worsening chest pain, leg swelling or shortness of breath. Please follow with your primary care physician for further outpatient evaluation and management.[facility] Work Phone: Reason for referral (narrative)No reason for referral information availableWooSt. 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 Advance Directive(s) 01/20/2017 7:47 AM Advance Directive(s) 09/05/2015 4:07 PM Advance Directive Response Recorded Date/ Time Advance Directives No January 13, 2020 3:59pm Living Will No July 18, 2021 9:19pm Power of Clinical Research Assistant No July 18 9:19pm Advance Directive Response Recorded Date/ Time Advance Directives No January 13, 2020 3:59pm Living Will No December 08 022 11:25pm Power of Clinical Research Assistant No December 08, 2021 11:25pm Advance Directive Response Recorded Date/ Time Advance Directives No January 13, 2020 2:59pm Living Will No March 01 022 9:51pm Power of Clinical Research Assistant No March 01, 2022 9:51pm Advance Directive Response Recorded Date/ Time Advance Directives No January 13, 2020 2:59pm Living Will No April 18 1:40am Power of Clinical Research Assistant No April 18, 2022 1:40am Advance Directive Response Recorded Date/ Time Advance Directives No January 13, 2020 2:59pm Living Will No May 21 023 1:36am Power of Clinical Research Assistant No May 21, 2022 1:36am Advance Directive Response Recorded Date/ Time Advance Directives No January 13, 2020 2:59pm Living Will No April 25 3:42pm Power of Clinical Research Assistant No April 25, 2023 3:42pm Advance Directive Response Recorded Date/ Time Advance Directives No January 13, 2020 2:59pm Living Will No May 24 024 12:27am Power of Clinical Research Assistant No May 24, 2023 12:27am Advance Directive Response Recorded Date/ Time Living Will No August 23, 2023 6 :30pm Do you have a Healthcare Power of Clinical Research Assistant? No August 23, 2023 6:30pm Advance Directives on File No Aprua 2024 8:15am Living Will No April 20 8:15am Do you have a Healthcare Power of Clinical Research Assistant? No April 20, 2024 8:15am Advance Directives No April 20, 2024 8:15am Living Will No May 21 8:31pm Do you have a Healthcare Power of Clinical Research Assistant? No May 21, 2024 8:31pm Advance Directive Response Recorded Date/ Time Living Will No August 23, 2023 6 :30pm Do you have a Healthcare Power of Clinical Research Assistant? No August 23, 2023 6:30pm Living Will No May 21 8:31pm Do you have a Healthcare Power of Clinical Research Assistant? No May 21, 2024 8:31pm Living Will No June 18, 2024 6:24am Do you have a Healthcare Power of Clinical Research Assistant? No June 18, 2024 6:24am Do you have a Healthcare Power of Clinical Research Assistant? No July 29, 2024 8:08pm Advance Directives No April 20, 2024 8:15am Advance Directive Response Recorded Date/ Time Living Will No August 23, 2023 6 :30pm Do you have a Healthcare Power of Clinical Research Assistant? No August 23, 2023 6:30pm Do you have a Healthcare Power of Clinical Research Assistant? No September 18, 2024 10:00am Living Will No May 21 8:31pm Do you have a Healthcare Power of Clinical Research Assistant? No May 21, 2024 8:31pm Living Will No June 18, 2024 6:24am Do you have a Healthcare Power of Clinical Research Assistant? No June 18, 2024 6:24am Do you have a Healthcare Power of Clinical Research Assistant? No July 29, 2024 8:08pm Advance Directives No April 20, 2024 8:15am Advance Directive Response Recorded Date/ Time Living Will No August 23, 2023 6 :30pm Do you have a Healthcare Power of Clinical Research Assistant? No August 23, 2023 6:30pm Do you have a Healthcare Power of Clinical Research Assistant? No September 18, 2024 3:22pm Living Will No June 18, 2024 6:24am Do you have a Healthcare Power of Clinical Research Assistant? No June 18, 2024 6:24am Do you have a Healthcare Power of Clinical Research Assistant? No July 29, 2024 8:08pm Advance Directives No April 20, 2024 8:15am Advance Directive Response Recorded Date/ Time Living Will No August 23, 2023 6 :30pm Do you have a Healthcare Power of Clinical Research Assistant? No August 23, 2023 6:30pm Do you have a Healthcare Power of Clinical Research Assistant? No September 18, 2024 3:22pm Do you have a Healthcare Power of Clinical Research Assistant? No October 19, 2024 6:36pm Do you have a Healthcare Power of Clinical Research Assistant? No July 29, 2024 8:08pm Advance Directives No April 20, 2024 8:15am Advance Directive Response Recorded Date/ Time Living Will No August 23, 2023 6 :30pm Do you have a Healthcare Power of Clinical Research Assistant? No August 23, 2023 6:30pm Do you have a Healthcare Power of Clinical Research Assistant? No September 18, 2024 3:22pm Do you have a Healthcare Power of Clinical Research Assistant? No October 19, 2024 6:36pm Do you have a Healthcare Power of Clinical Research Assistant? Yes October 21, 2024 4:34pm Do you have a Healthcare Power of Clinical Research Assistant? No July 29, 2024 8:08pm Advance Directives No April 20, 2024 8:15am Advance Directive Response Recorded Date/ Time Living Will No August 23, 2023 6 :30pm Do you have a Healthcare Power of Clinical Research Assistant? No August 23, 2023 6:30pm Do you have a Healthcare Power of Clinical Research Assistant? No September 18, 2024 3:22pm Do you have a Healthcare Power of Clinical Research Assistant? No October 19, 2024 6:36pm Do you have a Healthcare Power of Clinical Research Assistant? Yes October 21, 2024 4:34pm Do you have a Healthcare Power of Clinical Research Assistant? No July 29, 2024 8:08pm Do you have a Healthcare Power of Clinical Research Assistant? Yes October 23, 2024 6:04pm Advance Directives No April 20, 2024 8:15am [...] diabetes mellitus Stenosis of right carotid artery [id number] Nicotine dependence Chief Complaint 3 M FU Amb Documentation LOWER lung cancer screening SCREENING 3 M FU NSTEMI Reason for Visit Essential (primary) hypertension Insulin dependent diabetes mellitus Stenosis of right carotid artery [id number] Nicotine dependence Essential (primary) hypertension Hyperlipidemia Insulin dependent diabetes mellitus H/O coronary artery bypass surgery NSTEMI, initial episode of care Insulin dependent diabetes mellitus Nicotine dependence Chief Complaint LOWER lung cancer screening SCREENING 3 M FU NSTEMI NSTEMI NSTEMI NSTEMI [facility] FU- HEART ATTACK s/p [facility] ED NSTEMI 1-14 lower extrem Reason for Visit [id number] Nicotine dependence Essential (primary) hypertension Hyperlipidemia Insulin [...] 3 M FU NSTEMI NSTEMI NSTEMI NSTEMI [facility] FU- HEART ATTACK s/p [facility] ED NSTEMI 1-14 lower extrem EORDER Reason for Visit [id number] Nicotine dependence Essential (primary) hypertension Hyperlipidemia Insulin [...] hypertension Insulin dependent diabetes mellitus Nicotine dependence [id number] Nicotine dependence Chief Complaint Admit Date 3-4 M FU February 24, 2024 11:07am 3 M FU February 24, 2024 12:58pm PVD, OPEN WOUND March 09, 2024 9 :11am 4-5 WK FU March 22, 2024 10:47am Peripheral vascular disease, unspecified March 29, 2024 1:23pm 6 M FU April 01, 2024 9:49am Discuss CTA results April 08, 2024 12 :56pm Atherosclerosis of [place] arteries of ri ght leg [place] April 20, 2024 6:47am Atherosclerosis of galena arteries of ri t leg wi April 20, 2024 12:55pm 2 [...] February 24, 2024 11:07am Essential (primary) hypertension [facility] r 2023 12:58pm Insulin dependent diabetes mellitus [facility] 2023 12:58pm Nicotine dependence February 24, 2024 [...] 2024 10:46am Type 2 diabetes mellitus May 03 10:46am COPD (chronic obstructive pu lmonary disease) [...] [place] PD June 20, 2024 10:58am S/P [facility] 06/21July 12, 2024 9:51 am Discuss Results July 14, 2024 9:5 4am chest pain July 29, 2024 7:5 8pm 3 M FU August 02, 2024 11: 21am CAROTID ARTERY DISEASE September 08, 2024 10 :08am Reason for Visit Admit Date Atherosclerosis of right lower extremity with ulceration May 17, 2024 12:40pm Acute hypoxemic respiratory failure Get 2024 4:45am Acute respiratory distress June 18 025 4:45am Bilateral pleural effusion June 18 025 4:45am Bronchitis, purulent, chronic June 4:45am CHF (congestive heart failure) June 4:45am Elevated troponin June 18, 2024 4:4 5am Hyperglycemia June 18, 2024 4:4 5am LV dysfunction June 18, 2024 4:4 5am Overweight (BMI 25.0-29.9) June 18, 4:45am Pulmonary edema June 18, 2024 4:4 [...] 2024 4:45am Acute respiratory distress June 18, 025 4:45am Bilateral pleural effusion June 18 025 4:45am Bronchitis, purulent, chronic June 4:45am CHF (congestive heart failure) June 4:45am Elevated troponin June 18, 2024 4:4 5am Hyperglycemia June 18, 2024 4:4 5am LV dysfunction June 18, 2024 4:4 5am Overweight (BMI 25.0-29.9) June 18 025 4:45am Pulmonary edema June 18, 2024 [...] [place] PD June 20, 2024 10:58am S/P [facility] 06/21July 12, 2024 9:51 am Discuss Results [...] [place] PD June 20, 2024 10:58am S/P WC 06/21July 12, 2024 9:51 am Discuss Results [...] 2024 9:55am Chief Complaint Admit Date S/P [facility] 06/21July 12, 2024 9:51 am Discuss Results [...] 2024 9:55am Chief Complaint Admit Date S/P [facility] 06/21July 12, 2024 9:51 am Discuss Results [...] arm pain October 21, 2024 4:25 pm Chief Complaint Admit Date S/P [facility] 06/21July 12, 2024 9:51 am Discuss Results [...] arm pain October 21, 2024 4:25 pm CELLULITIS October 23, 2024 5:53 pm Family History No Family History Records Found Relationship Condition Age at Onset Recorded Date/T matt father Asthma Unknown Alcoholism Unknown Arthritis Unknown Cardiac disease Unknown Hypertension Unknown High blood cholesterol Unknown Cerebrovascular accident (CVA) Unknown Malignant neoplasm of lung Unknown grandfather Myocardial infarction Unknown Reason for Referral Specialty Diagnoses / Procedures Referred By Contac t Referred To Contact CT IMAGING Diagnoses Left groin pain Procedures CT PELVIS WO IVCON CT PELVIS W/O CONTRAST MATERIAL Yamilka Parekh MD [address] [place] [address] Ct Imaging Referral ID Status Reason Start Date Expiration Date Visits Requested Visits Authorized [id number] Additional Clinical Info Needed Auto-Generat ed Referral 01/06/2022 02/05/2023 1 1 Specialty Diagnoses / Procedures Referred By Contac t Referred To Contact CT IMAGING Diagnoses Left groin pain Procedures CT PELVIS WO IVCON CT PELVIS W/O CONTRAST MATERIAL Yamilka Parekh MD [address] [place] [address] [place] [address] Referral ID Status Reason Start Date Expiration Date V isits Requested Visits Authorized [id number] Closed Auto-Generate d Referral 01/06/2022 03/16/2022 2 [...] Yamilka Parekh MD [address] [place] [address] [place] [address] Referral ID Status Reason Start Date Expiration Date V isits Requested Visits Authorized [id number] Closed Auto-Generate d Referral 01/06/2022 03/16/2022 2 [...] Care Teams (unrecognized sec tion and content) Head Custodian Relationship Specialty Start Date End Date Xiang Rogers DO [address] [place] [address] PCP - General Family Medicine 01/03/22 Head Custodian Relationship Specialty Start Date End Date Xiang Rogers DO [address] [place] [address] PCP - General Family Medicine 01/03/22 Head Custodian Relationship Specialty Start Date End Date Xiang Rogers DO [address] [place] [address] PCP - General Family Medicine 01/03/22 Team [...] DO Primary Care Provider Active Kimberli Mora DEFENSE ATTORNEY, DEFENSE ATTORNEY-C Attending Provider, Referring Provider Active Team Status: [...] Provider, Referr ing Provider Active Dean Pena DEFENSE ATTORNEY, DEFENSE ATTORNEY-C Attending Provider Active Team Status: Inactive Member [...] Rogers DO Primary Care Provider Active Dr. Bronson Tolentino , DO Emergency Provider Active Team Status: Inactive Member Role Status Dates Dr. Xiang Rogers DO Primary Care Provider Active Dr. Bronson Tolentino , DO Attending Provider, Emergency Pr ovider Active Team Status: Inactive Member Role Status Dates Dr. Xiang Rogers DO Primary Care Provider Active Dean Pena DEFENSE ATTORNEY, DEFENSE ATTORNEY-C Attending Provider, Referring Pro vider Active Head Custodian Relationship Specialty Start Date End Date Xiang Rogers DO [address] [place] [address] PCP - General Family Medicine 01/03/22 Head Custodian Relationship Specialty Start Date End Date Xiang Rogers DO [address] [place], [place] [address] PCP - [facility] 01/03/22 Team Status: Inactive Member Role Status Dates Dr. Xiang Rogers , Primary Care Provider Active Dr. Chaya Knight MD Emergency Provider Active Team Status: Inactive Member Role Status Dates Dr. Xiang Rogers , DO Primary Care Provider Active Dr. Saúl Aguilar , DO Emergency Provider Active Team Status: Inactive Member Role Status Dates Dr. Xiang Roegrs , DO Primary Care Provider, Referr ing Provider Active Kimberli Mora DEFENSE ATTORNEY, DEFENSE ATTORNEY-C Attending Provider Active Team Status: Inactive Member Role Status Dates Dr. Xiang Rogers DO Primary Care Provider Active Dr. Saúl Aguilar , DO Attending Provider, Emergency P rovider Active Head Custodian Relationship Specialty Start Date End Date Xiang Rogers DO [address] [place] [address] PCP - [facility] 01/03/22 Team Status: Active Member Role Status [...] March 09, 2024 Dr. Jose Small , DPM Attending Provider Active Start: March 09, [...] Provider Active Start: April 20, 2024 Dr. Súal Flowers MD Attending Provider Active S tart: [...] End: May 21, 2024 Dr. Saúl Aguilar , Emergency Provider Active Start: May 21, 2024 [...] 2024 End: June 20, 2024 Dean Pena DEFENSE ATTORNEY, DEFENSE ATTORNEY-C Other Provider Active Start : June 18, [...] Active Start: June 19, 2024 Dean Pena DEFENSE ATTORNEY, DEFENSE ATTORNEY-C Other Provider Active Start : June 19, 2024 Magaly DEVINE, PA Other Provider Active Start: June 19, [...] Active Start: June 19, 2024 Dean Pena DEFENSE ATTORNEY, DEFENSE ATTORNEY-C Other Provider Active Start : June 19, 2024 Magaly DEVINE, PA Other Provider Active Start: June 19, [...] Active Start: June 20, 2024 Dean Pena DEFENSE ATTORNEY, DEFENSE ATTORNEY-C Other Provider Active Start : June 20, [...] Active Start: June 20, 2024 Dean Pena DEFENSE ATTORNEY, DEFENSE ATTORNEY-C Other Provider Active Start : June 20, [...] 2024 End: July 12, 2024 Ronit Galvez DEFENSE ATTORNEY, DEFENSE ATTORNEY-C Attending Provider Active Start: July 12, 2024 [...] July 29, 2024 Dr. Lawson Castellon , Emergency Provider Active Start : July 29, [...] End: September 21, 2024 Dr. Saúl Aguilar DO Emergency Provider Active Start: September 18, 2024 End: September 21, 2024 Dr. Clinton Soares DO Admit Provider Active Start: September 18, 2024 End: September 21, 2024 Dr. Clinton Soares DO Other Provider [...] Status: Active Member Role Status Dates Dr. iXang Rogers , DO Primary Care Provider Active [...] 2024 End: July 12, 2024 Ronit Galvez DEFENSE ATTORNEY, DEFENSE ATTORNEY-C Attending Provider Active Start: July 12, 2024 [...] September 19, 2024 Dr. Saúl Aguilar , Emergency Provider Active Start: September 19, 2024 Dr. Clinton Soares DO Admit Provider Active Start: September 19, [...] Start: September 20, 2024 Dr. Clinton Soares DO Admit Provider Active Start: September 20, [...] Aguilar , Emergency Provider Active Start: September 21, 2024 [...] End: October 19, 2024 Dr. Valentín Miller DO Emergency Provider Active Start: October 19, 2024 End: October 19, 2024 Team Status: Inactive Member Role/Relationship Status Dates Dr. Xiang Rogers DO Primary Care Provider Active Start: October 21, 2024 End: October 21, 2024 Dr. Severo Zeng , DO Emergency Provider Active S tart: October 21, 2024 End: October 21, 2024 Team Status: Inactive Member Role/Relationship Status Dates Dr. Xiang Rogers DO Primary Care Provider Active Start: October 23, 2024 End: October 23, 2024 Dr. Devin Curry MD Referring Provider Active S tart: October 23, 2024 End: October 23, 2024 Dr. Devin Curry MD Emergency Provider Active S tart: October 23, 2024 End: October 23, 2024 (unrecognized sect ion and content) No Status Records FoundNo Status Records Found INFORMATION SOURCE (unrecogn ized section and content) DATE CREATED AUTHOR 02/05/2022 [facility] DATE CREATED AUTHOR AUTHOR'Garima FAITH 10/25/2024 [facility] FOR RECORDS PERTAINING TO PATIENTS WHO [...] BE BASED ON THE PRIMARY CLINICAL RECORDS. [employer] provides no warranty or guarantee of the accuracy or completeness of information in this document.
[2024-10-27] MEDS: 0.9% Normal Saline (1000mL) 1,000 ML 999 ML IV (00:08)
--- NOTE | 2024-10-27 00:33 | EDS_ITS ---
HPI History of Present Illness Chief Complaint: Hyperglycemia Informant: patient Narrative Narrative: Patient is a 64-year-old male with past medical history of hypertension hyperlipidemia COPD and insulin-dependent diabetes. He states over the last 1 to 2 days he has just felt overall fatigued and "unwell". He states there has been no associated vomiting diarrhea or dysuria. He denies any fevers or chills or worsening cough or shortness of breath. He states he is checked his blood sugar a few times and it has been "high". He denies any known sick contacts but with concern that his diabetes is out of control or he is developing an infection he comes in for evaluation. [facility] Medical History GERD (gastroesophageal reflux disease) Anxiety High blood cholesterol Diabetes mellitus Emphysema, unspecified COPD (chronic obstructive pulmonary disease) Decreased left ventricular function Encounter for screening for malignant neoplasm of lung in current smoker with 30 pack year history or greater Stenosis of right carotid artery Insulin dependent diabetes mellitus History of non-ST elevation myocardial infarction (NSTEMI) (06/11/18) Emphysema lung Asthma Type 2 diabetes mellitus Arthritis Pancreatitis GERD (gastroesophageal reflux disease) Nicotine dependence Atherosclerosis of coronary artery of [place] heart without angina pectoris Hyperlipidemia Essential (primary) hypertension Home Medications Medication Instructions Recorded Last Taken Type blood sugar diagnostic (FreeStyle #50 ea 04/02/21 Unkn own Rx Test strips) blood-glucose meter (FreeStyle #1 ea 04/02/21 Unknown Rx System Kit) lancets 28 gauge (FreeStyle #50 ea 04/02/21 Unknown Rx Lancets) pen needle, diabetic 31 gauge x #100 ea 04/02/21 Unkno wn Rx 3/16" (1st Tier Unifine Pentips Plus) Handicap placard #1 ea 07/22/23 Unknown Rx pen needle, diabetic 31 gauge x #100 ea 10/28/23 Unkno wn Rx 5/16" (Comfort EZ Pen [place]) evolocumab 140 mg/mL subcutaneous 140 mg subcut Q2W ch olesterol #6 mL 05/09/24 09/12/24 Rx pen injector (Repatha SureClick) insulin glargine 100 unit/mL (3 20 unit subcut DAILY D iabetes 06/17/24 09/18/24 History mL) subcutaneous pen (Lantus Solostar U-100 Insulin) aspirin 81 mg chewable tablet 81 mg PO BREAKFAST preve ntative #0 06/20/24 09/18/24 Rx tabs omeprazole 20 mg capsule,delayed 20 mg PO DAILY reflux #90 caps 09/13/24 09/18/24 Rx release fluticasone propionate 50 2 spray intranasal DAILY PRN nasal 09/18/24 Unknown History mcg/actuation nasal congestion spray,suspension (Flonase Allergy Relief) clopidogrel 75 mg tablet 75 mg PO DAILY #90 tabs 09/05 07/29 Unknown Rx furosemide 40 mg tablet 40 mg PO DAILY #90 tabs 09/05 07/29 Unknown Rx nitroglycerin 0.4 mg sublingual 0.4 mg sublingual Q5M PRN 09/27/24 Unknown Rx tablet Cardiac/Chest Pain #25 tabs clindamycin HCl 300 mg capsule 300 mg PO Q8H 10 days # 30 caps 10/23/24 Unknown Rx (Cleocin HCl) albuterol sulfate 90 mcg/actuation 2 puff inhalation Q 4H PRN 10/25/24 Unknown Rx aerosol inhaler shortness of breath or wheez ing #6.7 grams ondansetron 4 mg disintegrating 4 mg PO TID PRN nausea and 10/27/24 Unknown Rx tablet vomiting #21 tabs Allergy/AdvReac Type Severity Reaction Status Date / Time amoxicillin Allergy Angioedema Verified 10/23/24 17:55 lindane Allergy Rash Verified 10/23/24 17:55 Family History Father Asthma Alcoholism Arthritis Heart disease Hypertension High cholesterol CVA (cerebral vascular accident) Lung cancer Grandfather Myocardial infarction Surgical History S/P CABG x 4 History of hernia repair History of carotid endarterectomy (01/06/14) H/O coronary artery bypass surgery (2006) History of left heart catheterization (06/11/18) Social History Smoking Status: Light Smoker (<10/day) Tobacco: How many years used: 45 Electronic Cigarette Use: not used second hand exposure: Yes quit status: considering quitting alcohol intake: never substance use type: does not use caffeine: Yes Type: coffee Number of servings: 5 what type of physical activity do you participate in: none ROS ROS ED Constitutional Constitutional ED: Reports sweats; Denies chills or fever(s) Eyes Eyes: Denies change in vision ENT ENT ED: Denies rhinorrhea or sore throat Cardiovascular Cardiovascular: Denies chest pain Respiratory/Chest Respiratory/Chest: Denies cough or dyspnea Gastrointestinal Gastrointestinal: Reports nausea; Denies abdominal pain, diarrhea or vomiting Genitourinary Genitourinary ED: Denies dysuria Musculoskeletal Musculoskeletal: Reports myalgias Integumentary Denies rash Neurologic Neurologic: Reports weakness; Denies headache(s) Hematologic/Lymphatic Hematologic/Lymphatic: Denies easy bleeding or easy bruising EXAM Physical Exam Const Vital Signs: 10/26/24 23:29 10/26/24 23:39 10/27/24 01:16 Temperature 97.6 F L 98.2 F Temperature Source Oral Pulse Rate 99 105 H Respiratory Rate 20 H 14 Respiratory Effort Normal Blood Pressure 114/67 119/80 Blood Pressure Mean 82 93 Pulse Ox 97 99 Oxygen Delivery Method Room Air Positive well nourished and well developed General Appearance ED: well developed; Negative for pallor HEENT Reports dry mucous membranes HEENT Narrative: No tongue or lip swelling no oral lesions no airway edema or compromise; no s econdary findings in the posterior pharynx to suggest infection Mucous membranes are dry and tacky Mouth ED: Yes dry mucous membranes Mouth: dry mucous membranes Eyes PERRL and EOMs intact bilaterally General Eye ED: Negative for scleral icterus Neck supple Neck Narrative: No nuchal rigidity or meningeal signs Resp normal respiratory effort and clear to auscultation bilaterally Cardio regular rate and regular rhythm Rate: other Other Details: Heart is regular rate and rhythm with a grade 4 out of 6 systolic murmur Radial and carotid pulses are equal and symmetric GI normal to inspection, nondistended, normoactive bowel sounds, non-tender, non- distended and no masses GI Narrative: No voluntary guarding or rigidity or pulsatile mass Auscultation: normoactive bowel sounds Palpation: soft Extremity Extremity Narrative: +2 pitting edema to the bilateral lower extremities that is equal and symmetric Negative Homans' sign bilaterally Findings of chronic stasis changes to the bilateral lower legs without secondary changes to suggest infection Neuro oriented x3, CN's II-XII intact bilaterally and no sensory deficits noted Sensorium / Orientation: alert Motor Exam: strength 5/5 throughout Psych mental status grossly normal Skin no rashes or lesions noted and No skin turgor normal Skin Narrative: Skin turgor is elevated consistent with dehydration General Skin Exam: Negative for jaundice or pallor MDM MDM MDM Narrative Medical decision making narrative: Patient arrived to the ER with stable vitals. He reported generalized fatigue with nausea and states his sugar was reading high. With history of diabetes there is concern for DKA or HHS as a cause of his symptoms. Patient could also have secondary infection such as UTI or pneumonia. Secondary to this basic blood work was obtained with urine sample and chest x-ray. Chest x-ray showed small bilateral pleural effusions which are more likely chronic in nature without secondary findings of infection. Urine sample showed no signs of infection or blood going against UTI/pyelonephritis or kidney stone. The patient's anion gap is normal and his VBG shows a normal pH of 7.4 going against DKA. His calculated serum osmolality is 282 going against HHS. After receiving IV fluid he reported resolution of his symptoms and reported feeling better. His abdomen remains soft and nonsurgical and without fever or leukocytosis or left shift I have low concern for intestinal infection and there is no need for abdominal CT. Therefore at this time as the patient does not have have an obvious source of infection leading to his elevated blood sugar he does not have findings of acute kidney injury or clinically significant electrolyte abnormality and he is not in DKA or HHS there is no need for further intervention in the hospital and he is otherwise safe for discharge History & Record Review Discussion w/independent historian: Patient Lab Data Attestation: I reviewed the patient's lab results. Labs: Laboratory Results - last 24 hr 10/26/24 10/27/24 10/27/24 23:37 00:02 00:02 WBC Cancelled Corrected WBC Cancelled RBC Cancelled Hgb Cancelled Hct Cancelled MCV Cancelled MCH Cancelled MCHC Cancelled RDW Std Deviation Cancelled RDW Coeff of Maycol Cancelled Plt Count Cancelled MPV Cancelled Immature Gran % (Auto) Cancelled Neut % (Auto) Cancelled Lymph % (Auto) Cancelled Mcclain % (Auto) Cancelled Eos % (Auto) Cancelled Baso % (Auto) Cancelled Absolute Neuts (auto) Cancelled Absolute Lymphs (auto) Cancelled Total Counted Cancelled Neutrophils % (Manual) Cancelled Band Neutrophils % Cancelled Lymphocytes % (Manual) Cancelled Monocytes % (Manual) Cancelled Eosinophils % (Manual) Cancelled Basophils % (Manual) Cancelled Metamyelocytes % Cancelled Myelocytes % Cancelled Promyelocytes % Cancelled Blast Cells % Cancelled Plasma Cell % (Manual) Cancelled Other Cells % Cancelled Nucleated RBC % Cancelled Nucleated RBCs/100 WBC Cancelled Differential Comment Cancelled Diff Path Review Cancelled Hypersegmented Neuts Cancelled Atypical Lymphocytes Cancelled Reactive Lymphocytes Cancelled Smudge Cells Cancelled Toxic Granulation Cancelled Toxic Vacuolation Cancelled Dohle Bodies Cancelled López Rods Cancelled Platelet Estimate Cancelled Plt Morphology Comment Cancelled RBC Morphology Cancelled Cancelled Polychromasia Cancelled Hypochromasia Cancelled Basophilic Stippling Cancelled Anisocytosis Cancelled Microcytosis Cancelled Macrocytosis Cancelled Spherocytes Cancelled Sickle Cells Cancelled Target Cells Cancelled Tear Drop Cells Cancelled Ovalocytes Cancelled Stomatocytes Cancelled [place] Bodies Cancelled [place] Cells Cancelled Bite Cells Cancelled Crenated Cell Cancelled Acanthocytes (Spur) Cancelled Rouleaux Cancelled Schistocytes Cancelled Sodium 132 L Potassium 4.2 Chloride 98 Carbon Dioxide 20.9 L Anion Gap 13 BUN 18 Creatinine 0.99 Estim Creat Clear Calc 87.66 Est GFR (MDRD) Non-Af 85 BUN/Creatinine Ratio 18.1 Glucose 203 H Lactic Acid 1.4 Calcium 8.8 Magnesium 1.7 Total Bilirubin 0.99 Direct Bilirubin 0.17 AST 44 H ALT 23 Alkaline Phosphatase 97 Total Protein 6.6 Albumin 3.5 Globulin 3.1 Lipase 37 Urine Color Urine Clarity Urine pH Ur Specific [place] Urine Protein Urine Glucose (UA) Urine Ketones Urine Occult Blood Urine Nitrite Urine Bilirubin Urine Urobilinogen Ur Leukocyte Esterase Urine RBC Urine WBC Ur Squamous Epith Cells Urine Bacteria Urine Mucus POC Glucose 194 H 10/27/24 10/27/24 00:33 00:38 WBC 6.7 Corrected WBC RBC 4.40 L Hgb 13.3 Hct 41.6 MCV 94.5 H MCH 30.2 MCHC 32.0 RDW Std Deviation 46.2 H RDW Coeff of Maycol 13.2 Plt Count 245 MPV 9.6 Immature Gran % (Auto) 0.400 Neut % (Auto) 78.9 H Lymph % (Auto) 14.2 L Mcclain % (Auto) 4.0 Eos % (Auto) 2.2 Baso % (Auto) 0.3 Absolute Neuts (auto) 5.3 Absolute Lymphs (auto) 0.95 Total Counted Neutrophils % (Manual) Band Neutrophils % Lymphocytes % (Manual) Monocytes % (Manual) Eosinophils % (Manual) Basophils % (Manual) Metamyelocytes % Myelocytes % Promyelocytes % Blast Cells % Plasma Cell % (Manual) Other Cells % Nucleated RBC % 0 Nucleated RBCs/100 WBC Differential Comment Diff Path Review Hypersegmented Neuts Atypical Lymphocytes Reactive Lymphocytes Smudge Cells Toxic Granulation Toxic Vacuolation Dohle Bodies López Rods Platelet Estimate Plt Morphology Comment RBC Morphology Polychromasia Hypochromasia Basophilic Stippling Anisocytosis Microcytosis Macrocytosis Spherocytes Sickle Cells Target Cells Tear Drop Cells Ovalocytes Stomatocytes [place] Bodies [place] Cells Bite Cells Crenated Cell Acanthocytes (Spur) Rouleaux Schistocytes Sodium Potassium Chloride Carbon Dioxide Anion Gap BUN Creatinine Estim Creat Clear Calc Est GFR (MDRD) Non-Af BUN/Creatinine Ratio Glucose Lactic Acid Calcium Magnesium Total Bilirubin Direct Bilirubin AST ALT Alkaline Phosphatase Total Protein Albumin Globulin Lipase Urine Color Yellow Urine Clarity Clear Urine pH 6.0 Ur Specific [place] 1.020 Urine Protein 30 H Urine Glucose (UA) 50 H Urine Ketones Negative Urine Occult Blood Negative Urine Nitrite Negative Urine Bilirubin Negative Urine Urobilinogen 1 H Ur Leukocyte Esterase 100 H Urine RBC 0 SEEN Urine WBC 0-5 SEEN Ur Squamous Epith Cells 0 SEEN Urine Bacteria 0 SEEN Urine Mucus 0 SEEN POC Glucose ABG Data ABG results: ABG 10/27/24 10/27/24 00:07 00:34 Specimen Type NADINE NADINE Sample Site Not entered Not entered VBG pH 7.57 H 7.43 H VBG pO2 224 H 30 VBG HCO3 21 L 28 H VBG Total CO2 22 L 29 VBG O2 Sat (Calc) 100 H 59 VBG Base Excess -1 3 POC Mix VBG pCO2 Pt Tmp 23.3 L 41.9 O2 Delivery Device Not entered Not entered Radiography Diagnostic Testing: Clinical Impression(s) from Imaging Studies Chest X-Ray 10/26/24 23:59 IMPRESSION: Small bilateral effusions, under aerated lung bases. Reading Location: [facility] Chest x-ray as interpreted by the emergency medicine physician reveals small bilateral pleural effusions without acute infiltrate or pneumothorax Discharge Plan Triage Chief Complaint: Hyperglycemia Other Complaint: General Illness ED Provider: Bronson Tolentino Dx/Rx/DC Orders Clinical Impression: Hyperglycemia, Dehydration, Essential (primary) hypertension, Hyperlipidemia, Diabetes mellitus type 2, insulin dependent, COPD (chronic obstructive pulmonary disease) Instructions: High Blood Sugar (Hyperglycemia), ED Dehydration (Adult) Prescriptions: New ondansetron 4 mg tablet,disintegrating 4 mg PO TID PRN (Reason: nausea and vomiting) Qty: 21 0RF No Action (DME) Handicap placard See Rx Instructions .Route .MEDSUPPLY Qty: 1 0RF Rx Instructions: Due to COPD, unable to walk 50 yards without assistance, duration 5 years. (DME) pen needle, diabetic [Comfort EZ Pen [place]] 31 gauge x 5/16" needle See Rx Instructions .Route Qty: 100 3RF Rx Instructions: As directed clopidogrel 75 mg tablet 75 mg PO DAILY Qty: 90 3RF furosemide 40 mg tablet 40 mg PO DAILY Qty: 90 3RF nitroglycerin 0.4 mg tablet, sublingual 0.4 mg Sublingual Q5M PRN (Reason: Cardiac/Chest Pain) Qty: 25 1RF fluticasone propionate [Flonase Allergy Relief] 50 mcg/actuation spray,suspension 2 spray intranasal DAILY PRN (Reason: nasal congestion) Rx Instructions: administer into each nostril insulin glargine [Lantus Solostar U-100 Insulin] 100 unit/mL (3 mL) insulin pen 20 unit subcut DAILY aspirin 81 mg Tablet,Chewable 81 mg PO BREAKFAST Qty: 0 0RF clindamycin HCl [Cleocin HCl] 300 mg capsule 300 mg PO Q8H 10 Days Qty: 30 0RF (DME) FreeStyle Test Strip See Rx Instructions .ROUTE .MEDSUPPLY Qty: 50 11RF Rx Instructions: check blood glucose daily (DME) blood-glucose meter [FreeStyle System Kit] Kit See Rx Instructions .ROUTE .MEDSUPPLY Qty: 1 0RF Rx Instructions: check blood glucose daily for type 2 DM (DME) lancets [FreeStyle Lancets] 28 gauge misc See Rx Instructions .ROUTE .MEDSUPPLY Qty: 50 11RF Rx Instructions: Check blood glucose daily for type 2 DM (DME) pen needle, diabetic [1st Tier Unifine Pentips Plus] 31 gauge x 3/16" needle See Rx Instructions .ROUTE .MEDSUPPLY Qty: 100 1RF Rx Instructions: use with lantus nightly Repatha SureClick 140 mg/mL pen injector 140 mg subcut Q2W Qty: 6 3RF omeprazole 20 mg capsule,delayed release(DR/EC) 20 mg PO DAILY Qty: 90 1RF albuterol sulfate 90 mcg/actuation HFA aerosol inhaler 2 puff inhalation Q4H PRN (Reason: shortness of breath or wheezing) Qty: 6.7 0RF Primary Care Provider: Ant Nuñez Referrals: Ant Nuñez, DO [Primary Care Provider] - Activity Restrictions/Additional Instructions: Your workup today revealed no signs of pneumonia or urinary tract infection or metabolic derangement from your diabetes. Your history and exam is consistent with mild dehydration which has been corrected by IV fluids in the ER. Please continue all of your home medications as directed by your doctor and return to the ER should you have any further concerns Print Language: Yoruba Disposition Disposition: Home, Self Care Discharge Date/Time: 10/27/24 01:26
[2024-10-27 00:37] LABS: SITE Not entered; VBG BASE EXCESS -1 mmol/L (-1.0-3.5); VBG PO2 224 mmHg (25-40); VBG SO2 100 % (50-70); VBG TCO2 22 mmol/L (23-33)
[2024-10-27 00:37] LABS: Hematocrit 41.6 % (40-54); Hemoglobin 13.3 g/dL (13.0-16.5); Immature Granulocytes Count 0.030 X10^3/uL (0.0-0.0); Mean Corp Hgb Conc 32.0 g/dL (32-36); Mean Corpuscular Volume 94.5 fL (80-94); Mean Platelet Vol. 9.6 fl (6.2-12.0); NRBC Flagged by Analyzer 0 % (0-5); Platelet Count 245 K/mm3 (150-450); RBC Distribution Width CV 13.2 % (11.6-14.6); RBC Distribution Width SD 46.2 fl (35.1-43.9); Red Blood Count 4.40 M/mm3 (4.6-6.2); White Blood Count 6.7 K/mm3 (4.4-11.0)
[2024-10-27 00:38] LABS: SITE Not entered; VBG BASE EXCESS 3 mmol/L (-1.0-3.5); VBG PO2 30 mmHg (25-40); VBG SO2 59 % (50-70); VBG TCO2 29 mmol/L (23-33)
[2024-10-27 00:39] LABS: Lipase 37 U/L (13-75); Magnesium 1.7 mg/dL (1.5-2.2)
[2024-10-27 00:43] LABS: Mucous, Urine 0 SEEN /hpf (<or=2+); Red Blood Cells-Urine 0 SEEN /hpf (0-5); Squamous Epithelial Cells - UA 0 SEEN /hpf (0-5)
[2024-10-27 00:45] LABS: Color, Urine Yellow (Yellow); Glucose, Dipstick 50 mg/dl (Normal); Ketone-Dipstick Negative (Negative); Leukocyte Esterase-Dipstick 100 /ul (Negative); Nitrite-Dipstick Negative (Negative); Occult Blood-Urine Negative /ul (Negative); Protein-Dipstick 30 mg/dl (Negative); Specific Gravity, Urine 1.020 (1.002-1.030); Urine Bilirubin Dipstick Negative (Negative)
[2024-10-27 00:49] LABS: AST(SGOT) 44 U/L (<=37); Alanine Aminotransfer ALT/SGPT 23 U/L (<=46); Albumin, Serum 3.5 g/dL (3.4-4.8); Alkaline Phosphatase 97 U/L (40-129); Anion Gap 13 (5-15); BUN 18 mg/dL (4-19); BUN/Creat Ratio 18.1 RATIO (10-20); Bilirubin, Direct 0.17 mg/dL (0.00-0.30); Calcium,Total 8.8 mg/dL (7.6-11.0); Carbon Dioxide 20.9 mmol/L (21.0-32.0); Chloride 98 mmol/L (98-108); Estimated Creatinine Clearance 87.66 ml/min (50-250); Globulin 3.1 g/dL (2.2-4.2); Glucose 203 mg/dL (70-99); Potassium 4.2 mmol/L (3.3-5.1)
[2024-10-27 01:16] VITALS: BP 119/80; PULSE 105; RESP 14; TEMP 36.8; O2SAT 99
--- NOTE | 2024-10-29 19:56 | CPS ---
VBG @00:07:30, Error in pO2 reading, Dr. Tolentino requested VBG be re-ran
== END 2024-10-27 01:26 | disposition home or self-care (01) ==
PROVIDERS: Physician Assistant Medical; Emergency Provider Emergency Medicine; PCP Family Medicine; Visit Provider Emergency Medicine
DX: E11.65 Type 2 diabetes mellitus with hyperglycemia (principal); Z79.4 Long term (current) use of insulin; I10 Essential (primary) hypertension; E78.5 Hyperlipidemia, unspecified; I25.10 Atherosclerotic heart disease of native coronary artery without angina pectoris; I25.2 Old myocardial infarction; Z79.82 Long term (current) use of aspirin; K21.9 Gastro-esophageal reflux disease without esophagitis; Z79.899 Other long term (current) drug therapy; Z79.51 Long term (current) use of inhaled steroids; Z79.02 Long term (current) use of antithrombotics/antiplatelets; Z95.1 Presence of aortocoronary bypass graft; F17.200 Nicotine dependence, unspecified, uncomplicated
CPT/HCPCS: 71046; 80048; 80076; 81001; 82803; 82962; 83605; 83690; 83735; 85025; 96361; 96374; 99282; A4216; J2405

== ENCOUNTER 2024-11-10 14:46 | Inpatient (IN) | payer MEDICAID, SELFPAY ==
[2024-11-10] VITALS (11 sets, daily range): BP systolic 106–133; BP diastolic 64–79; PULSE 18–102; RESP 16–23; TEMP 36.4–37.2; O2SAT 93–100; BMI 29.2
--- NOTE | 2024-11-10 15:48 | EKG12_ITS ---
Test Reason : REPEAT CP Blood Pressure : */* mmHG Vent. Rate : 96 BPM Atrial Rate : 96 BPM P-R Int : 144 ms QRS Dur : 82 ms QT Int : 368 ms P-R-T Axes : 52 21 159 degrees QTcB Int : 464 ms Normal sinus rhythm Septal infarct , age undetermined Abnormal ECG Reconfirmed by BRIANNA DODSON ([id number]), marketing editor SAY DESAI ([id number]) on 11/14/2024 8:06:19 AM Referred By: Confirmed By: BRIANNA DODSON
--- NOTE | 2024-11-10 15:48 | EKG12_ITS ---
Test Reason : REPEAT CP Blood Pressure : */* mmHG Vent. Rate : 96 BPM Atrial Rate : 96 BPM P-R Int : 144 ms QRS Dur : 82 ms QT Int : 368 ms P-R-T Axes : 52 21 159 degrees QTcB Int : 464 ms Normal sinus rhythm Septal infarct , age undetermined Abnormal ECG Reconfirmed by BRIANNA DODSON ([id number]), manuscript editor SAY DESAI ([id number]) on 11/14/2024 8:06:19 AM Referred By: Confirmed By: BRIANNA DODSON
--- NOTE | 2024-11-10 16:14 | ED.RN ---
BLE SWELLING AND REDNESS, FLUID FILLED AREAS, SOME ARE DRAINING, SKIN IS TAUT AND SHINEY
--- NOTE | 2024-11-10 16:14 | ED.RN ---
BLE SWELLING AND REDNESS, FLUID FILLED AREAS, SOME ARE DRAINING, SKIN IS TAUT AND SHINEY
[2024-11-10 16:34] LABS: Hematocrit 41.6 % (40-54); Hemoglobin 13.3 g/dL (13.0-16.5); Immature Granulocytes Count 0.030 X10^3/uL (0.0-0.0); Mean Corp Hgb Conc 32.0 g/dL (32-36); Mean Corpuscular Volume 93.9 fL (80-94); Mean Platelet Vol. 9.3 fl (6.2-12.0); NRBC Flagged by Analyzer 0 % (0-5); Platelet Count 336 K/mm3 (150-450); RBC Distribution Width CV 14.2 % (11.6-14.6); RBC Distribution Width SD 48.4 fl (35.1-43.9); Red Blood Count 4.43 M/mm3 (4.6-6.2); White Blood Count 8.6 K/mm3 (4.4-11.0)
--- NOTE | 2024-11-10 17:00 | RAD_ITS ---
PROCEDURE: CHEST PA AND LATERAL 11/10/2024 REASON FOR EXAM: SHORTNESS OF BREATH TECHNIQUE: CHEST PA AND LATERAL COMPARISON: 10/27/2024 FINDINGS: Lungs/Pleura: Small bibasilar pleural effusions and/or atelectasis, greater on the right, increased in size from prior exam. Pulmonary vascular congestion and interstitial edema. No pneumothorax. Heart/Mediastinum: Cardiomegaly. Evidence of prior CABG with sternotomy wires and multiple mediastinal surgical clips. Calcification of the aortic arch. Bones/Soft tissues: Degenerative changes of the spine with exaggerated thoracic kyphosis. RAD/Chest PA and Lateral IMPRESSION: Cardiomegaly with vascular congestion, interstitial edema, and small bibasilar pleural effusions/atelectasis, greater on the right. Increased from prior exam. Reading Location: [id number]
--- NOTE | 2024-11-10 17:00 | RAD_ITS ---
PROCEDURE: CHEST PA AND LATERAL 11/10/2024 REASON FOR EXAM: SHORTNESS OF BREATH TECHNIQUE: CHEST PA AND LATERAL COMPARISON: 10/27/2024 FINDINGS: Lungs/Pleura: Small bibasilar pleural effusions and/or atelectasis, greater on the right, increased in size from prior exam. Pulmonary vascular congestion and interstitial edema. No pneumothorax. Heart/Mediastinum: Cardiomegaly. Evidence of prior CABG with sternotomy wires and multiple mediastinal surgical clips. Calcification of the aortic arch. Bones/Soft tissues: Degenerative changes of the spine with exaggerated thoracic kyphosis. RAD/Chest PA and Lateral IMPRESSION: Cardiomegaly with vascular congestion, interstitial edema, and small bibasilar pleural effusions/atelectasis, greater on the right. Increased from prior exam. Reading Location: [id number]
[2024-11-10 17:04] LABS: Anion Gap 12 (5-15); BUN 24 mg/dL (4-19); BUN/Creat Ratio 20.3 RATIO (10-20); Calcium,Total 8.8 mg/dL (7.6-11.0); Carbon Dioxide 23.1 mmol/L (21.0-32.0); Chloride 101 mmol/L (98-108); Glucose 174 mg/dL (70-99); Potassium 3.7 mmol/L (3.3-5.1); Troponin T High Sensitivity 42 ng/L (<=22)
--- NOTE | 2024-11-10 17:18 | ED.VIS.DYS ---
HPI History of Present Illness Chief Complaint: Shortness of Breath Narrative Narrative: Chief complaint and HPI: Shortness of breath, cough, peripheral edema. 64-year-old male with multiple comorbidities including CHF, aortic valve stenosis, COPD, DM2, tobacco abuse, CAD status post CABG, HTN, HLD presents for evaluation of shortness of breath, cough, peripheral edema. History taken by patient as well as medical record. Patient was just recently admitted to [facility] for shortness of breath and CHF exacerbation. He states for the past week he has had shortness of breath and productive cough. Also endorses bilateral lower extremity edema and orthopnea. On chart review, patient was seen in the cardiology office yesterday. Does not appear that patient has been taking all of his medications. He was placed on furosemide 40 mg daily. He also saw Dr. Nuñez in the office today who was concerned for the peripheral edema and added on spironolactone. Patient states that he developed chest pain earlier today around noon in which she took a nitro. Had relief. Presents today for all of his symptoms. Patient states he has had a 10 pound weight gain in the last week. Denies any fever, chills, abdominal pain, nausea, vomiting. Review of systems: See HPI Medications: As listed on the chart Allergies: As listed on the chart PFSH: Per chart Vital signs: As listed on the chart. Reviewed. Physical exam: Gen: A&O x3, NAD Head: Normocephalic, atraumatic Eyes: No sclera icterus, conjunctiva clear ENT: Moist mucous membranes Neck: Trachea midline CV: RRR, no murmurs, +2 pitting peripheral edema of the bilateral lower extremities Resp: Diminished in the bilateral bases, few expiratory scattered wheezing, cough+ GI: Abd soft, non-distended, non-tender, no r/r/g Musc: Full ROM, no deformity Skin: Warm, dry Neuro: Alert, oriented, grossly intact, sensation intact Psych: Cooperative, appropriate mood and affect [facility] Medical History Cardiac LV ejection fraction 30-35% GERD (gastroesophageal reflux disease) Anxiety High blood cholesterol Diabetes mellitus Emphysema, unspecified COPD (chronic obstructive pulmonary disease) Decreased left ventricular function Encounter for screening for malignant neoplasm of lung in current smoker with 30 pack year history or greater Stenosis of right carotid artery Insulin dependent diabetes mellitus History of non-ST elevation myocardial infarction (NSTEMI) (06/11/18) Emphysema lung Asthma Type 2 diabetes mellitus Arthritis Pancreatitis GERD (gastroesophageal reflux disease) Nicotine dependence Atherosclerosis of coronary artery of [place] heart without angina pectoris Hyperlipidemia Essential (primary) hypertension Home Medications ?Medication ?Instructions ?Recorded ?Last Taken ?Type blood sugar diagnostic (FreeStyle #50 ea 04/02/21 Unknown Rx Test strips) blood-glucose meter (FreeStyle #1 ea 04/02/21 Unknown Rx System Kit) lancets 28 gauge (FreeStyle #50 ea 04/02/21 Unknown Rx Lancets) pen needle, diabetic 31 gauge x #100 ea 04/02/21 Unknown Rx 3/16 (1st Tier Unifine Pentips Plus) Handicap placard #1 ea 07/22/23 Unknown Rx pen needle, diabetic 31 gauge x #100 ea 10/28/23 Unknown Rx 5/16 (Comfort EZ Pen [place]) evolocumab 140 mg/mL subcutaneous 140 mg subcut Q2W cholesterol #6 mL 05/09/24 09/12/24 Rx pen injector (Repatha SureClick) insulin glargine 100 unit/mL (3 20 unit subcut DAILY Diabetes 06/17/24 09/18/24 History mL) subcutaneous pen (Lantus Solostar U-100 Insulin) omeprazole 20 mg capsule,delayed 20 mg PO DAILY reflux #90 caps 09/13/24 09/18/24 Rx release fluticasone propionate 50 2 spray intranasal DAILY PRN nasal 09/18/24 Unknown History mcg/actuation nasal congestion spray,suspension (Flonase Allergy Relief) nitroglycerin 0.4 mg sublingual 0.4 mg sublingual Q5M PRN 09/27/24 Unknown Rx tablet Cardiac/Chest Pain #25 tabs clindamycin HCl 300 mg capsule 300 mg PO Q8H 10 days #30 caps 10/23/24 Unknown Rx (Cleocin HCl) ondansetron 4 mg disintegrating 4 mg PO TID PRN nausea and 10/27/24 Unknown Rx tablet vomiting #21 tabs aspirin 81 mg chewable tablet 81 mg PO BREAKFAST preventative 11/03/24 Unknown Rx #90 tabs clopidogrel 75 mg tablet 75 mg PO DAILY #90 tabs 11/03/24 Unknown Rx dapagliflozin propanediol 10 mg 10 mg PO DAILY diabetes #90 TABLETS 11/03/24 Unknown Rx tablet (Farxiga) ezetimibe 10 mg tablet 10 mg PO DAILY cholesterol #90 tabs 11/03/24 Unknown Rx furosemide 40 mg tablet 40 mg PO DAILY #90 tabs 11/03/24 Unknown Rx albuterol sulfate 90 mcg/actuation 2 puff inhalation Q4H PRN 11/04/24 Unknown Rx aerosol inhaler shortness of breath or wheezing #6.7 grams mometasone-formoterol HFA 100 2 puff inhalation BID COPD #13 11/04/24 Unknown Rx mcg-5 mcg/actuation aerosol grams inhaler (Dulera) spironolactone 25 mg tablet 25 mg PO DAILY diuretic #30 tabs 11/04/24 Unknown Rx Allergy/AdvReac Type Severity Reaction Status Date / Time amoxicillin Allergy Angioedema Verified 11/10/24 14:50 lindane Allergy Rash Verified 11/10/24 14:50 Family History Father Asthma Alcoholism Arthritis Heart disease Hypertension High cholesterol CVA (cerebral vascular accident) Lung cancer Grandfather Myocardial infarction Surgical History S/P CABG x 4 History of hernia repair History of carotid endarterectomy (01/06/14) H/O coronary artery bypass surgery (2006) History of left heart catheterization (06/11/18) Social History Smoking Status: Light Smoker (<10/day) Tobacco: How many years used: 45 Electronic Cigarette Use: not used second hand exposure: Yes quit status: considering quitting alcohol intake: never substance use type: does not use caffeine: Yes Type: coffee Number of servings: 5 what type of physical activity do you participate in: none EXAM Physical Exam Const Vital Signs: 11/10/24 14:47 11/10/24 15:49 11/10/24 16:17 Temperature 97.6 F L 97.6 F L Temperature Source Oral Oral Pulse Rate 97 96 102 H Respiratory Rate 21 H 16 22 H Respiratory Effort Respiratory Pattern Blood Pressure 106/69 119/67 119/67 Blood Pressure Mean 81 84 84 Pulse Ox 95 93 96 Oxygen Delivery Method Room Air Room Air 11/10/24 16:17 08/07/25 16:19 11/10/24 16:19 Temperature Temperature Source Pulse Rate Respiratory Rate 18 Respiratory Effort Short of Breath Labored Respiratory Pattern Blood Pressure Blood Pressure Mean Pulse Ox 95 Oxygen Delivery Method Room Air Room Air Room Air 11/10/24 17:00 11/10/24 17:20 11/10/24 18:00 Temperature 98.3 F 98.7 F Temperature Source Oral Oral Pulse Rate 94 96 98 Respiratory Rate 18 18 18 Respiratory Effort Respiratory Pattern Normal Blood Pressure 124/64 H 133/79 H Blood Pressure Mean 84 97 Pulse Ox 94 100 Oxygen Delivery Method Room Air MDM MDM MDM Narrative Medical decision making narrative: 64-year-old male with multiple comorbidities including CHF, aortic valve stenosis, COPD, DM2, tobacco abuse, CAD status post CABG, HTN, HLD presents for evaluation of shortness of breath, cough, peripheral edema. History taken by patient as well as medical record. Patient was just recently admitted to [facility] for shortness of breath and CHF exacerbation. Does not appear that patient was taking his medication correctly including Lasix. Was just placed back on furosemide 40 myelograms daily by cardiology. Saw Dr. Nuñez in the office today who also added spironolactone. On chart review patient's last echocardiogram was 09/19/2024 in which she has an EF of 35%. Differential diagnosis includes but is not limited to CHF exacerbation, pneumonia, viral illness, ACS. DuoNebs ordered for few expiratory wheezing. Cardiac/respiratory workup ordered. CBC unremarkable without leukocytosis or anemia. BMP relatively unremarkable. Troponin 42 and 37. Patient currently not endorsing chest pain. BNP elevated at 9141. Take all of your antibiotics this is increased from 4000 earlier in October. Chest x-ray shows CHF with pulmonary congestion and increased effusions from prior chest x-ray. This was personally reviewed and interpreted by me, ED physician. Radiology in agreement. Patient's symptoms are secondary to a CHF exacerbation. IV Lasix ordered. Patient will warrant admission for diuresis. Patient was updated of all results and confirmed understanding of plan. Patient was discussed with hospitalist service who accepted admission. EKG: Interpreted by me/EM physician: EKG shows normal sinus rhythm without any acute ischemic changes. Heart rate 98 Impression: 1 CHF exacerbation Lab Data Labs: Laboratory Results - last 24 hr 11/10/24 11/10/24 16:15 17:53 WBC 8.6 RBC 4.43 L Hgb 13.3 Hct 41.6 MCV 93.9 MCH 30.0 MCHC 32.0 RDW Std Deviation 48.4 H RDW Coeff of [place] 14.2 Plt Count 336 MPV 9.3 Immature Gran % (Auto) 0.300 Neut % (Auto) 69.7 Lymph % (Auto) 20.2 [place] % (Auto) 8.0 Eos % (Auto) 1.5 Baso % (Auto) 0.3 Absolute Neuts (auto) 6.0 Absolute Lymphs (auto) 1.74 Nucleated RBC % 0 Sodium 136 Potassium 3.7 Chloride 101 Carbon Dioxide 23.1 Anion Gap 12 BUN 24 H Creatinine 1.19 Est GFR (MDRD) Non-Af 68 BUN/Creatinine Ratio 20.3 H Glucose 174 H Calcium 8.8 Troponin T High Sens 42 H D Troponin T Hi Sens 2 Hr 37 H NT pro BNP II 9141 H Radiography Diagnostic Testing: Clinical Impression(s) from Imaging Studies Chest X-Ray 11/10/24 17:00 IMPRESSION: Cardiomegaly with vascular congestion, interstitial edema, and small bibasilar pleural effusions/atelectasis, greater on the right. Increased from prior exam. Reading Location: [facility] Discharge Plan Triage Chief Complaint: Shortness of Breath ED Provider: Bishop Monique Dx/Rx/DC Orders Prescriptions: No Action (DME) Handicap placard See Rx Instructions .Route .MEDSUPPLY Qty: 1 0RF Rx Instructions: Due to COPD, unable to walk 50 yards without assistance, duration 5 years. (DME) pen needle, diabetic [Comfort EZ Pen [place]] 31 gauge x 5/16 needle See Rx Instructions .Route Qty: 100 3RF Rx Instructions: As directed nitroglycerin 0.4 mg tablet, sublingual 0.4 mg Sublingual Q5M PRN (Reason: Cardiac/Chest Pain) Qty: 25 1RF spironolactone 25 mg tablet 25 mg PO DAILY Qty: 30 3RF Patient Comments: PT UNSURE IF HE TAKES THIS MEDICATION, albuterol sulfate 90 mcg/actuation HFA aerosol inhaler 2 puff inhalation Q4H PRN (Reason: shortness of breath or wheezing) Qty: 6.7 1RF Dulera 100-5 mcg/actuation HFA aerosol inhaler 2 puff inhalation BID Qty: 13 1RF furosemide 40 mg tablet 40 mg PO DAILY Qty: 90 3RF clopidogrel 75 mg tablet 75 mg PO DAILY Qty: 90 3RF ezetimibe 10 mg tablet 10 mg PO DAILY Qty: 90 3RF aspirin 81 mg tablet,chewable 81 mg PO BREAKFAST Qty: 90 3RF dapagliflozin propanediol [Farxiga] 10 mg tablet 10 mg PO DAILY Qty: 90 3RF fluticasone propionate [Flonase Allergy Relief] 50 mcg/actuation spray,suspension 2 spray intranasal DAILY PRN (Reason: nasal congestion) Rx Instructions: administer into each nostril insulin glargine [Lantus Solostar U-100 Insulin] 100 unit/mL (3 mL) insulin pen 20 unit subcut DAILY clindamycin HCl [Cleocin HCl] 300 mg capsule 300 mg PO Q8H 10 Days Qty: 30 0RF ondansetron 4 mg tablet,disintegrating 4 mg PO TID PRN (Reason: nausea and vomiting) Qty: 21 0RF (DME) FreeStyle Test Strip See Rx Instructions .ROUTE .MEDSUPPLY Qty: 50 11RF Rx Instructions: check blood glucose daily (DME) blood-glucose meter [FreeStyle System Kit] Kit See Rx Instructions .ROUTE .MEDSUPPLY Qty: 1 0RF Rx Instructions: check blood glucose daily for type 2 DM (DME) lancets [FreeStyle Lancets] 28 gauge misc See Rx Instructions .ROUTE .MEDSUPPLY Qty: 50 11RF Rx Instructions: Check blood glucose daily for type 2 DM (DME) pen needle, diabetic [1st Tier Unifine Pentips Plus] 31 gauge x 3/16 needle See Rx Instructions .ROUTE .MEDSUPPLY Qty: 100 1RF Rx Instructions: use with lantus nightly Repatha SureClick 140 mg/mL pen injector 140 mg subcut Q2W Qty: 6 3RF omeprazole 20 mg capsule,delayed release(DR/EC) 20 mg PO DAILY Qty: 90 1RF Primary Care Provider: Ant Nuñez Referrals: Ant Nuñez, DO [Primary Care Provider] - Print Language: [place]ijani
[2024-11-10 18:07] LABS: Pro- Brain NATRIURETIC PEPTIDE 9141 pg/mL (<=900)
[2024-11-10 18:37] LABS: Troponin T High Sens 2 HR 37 ng/L (<=22)
--- NOTE | 2024-11-10 19:30 | HP.PCM.HOS_ITS ---
HPI - General General Date of Admission: 11/10/24 Date of Service: 11/10/24 Chief Complaint: Dyspnea, orthopnea, increased weight gain, increased distal edema. HPI Narrative The patient is a 64 y/o M w/ PMHx: Hx CVA w/ mild facial droop, CKD stage II per GFR trending, HFrEF, GERD, Anxiety and Depression, HTN, HLD, Diabetes mellitus type II, COPD/Asthma, Carotid disease s/p CEA, CAD s/p CABG x 4, Tobacco use who presents to the [facility] ED on 11/10/2024 with history of recently being initiated on Lasix outpatient approximate 1 week prior taking 2 pills daily in addition to spironolactone however he notes he has been having weight gain as well as increased lower extremity swelling, orthopnea and dyspnea worse with exertion with home health evaluation 11/09/2024 with nurse noting significant venous stasis blistering because of worsening edema prompting eventual ED evaluation to be cautious. From review of records patient did have recent admission with discharge on 09/21/2024 following evaluation and treatment of acute on chronic HFrEF exacerbation. Workup in the ED included T97.6, heart rate 97, BP 106/69, respiratory rate 21, 95% on room air with most recent repeat vitals T98.7, heart rate 98, BP 133/79, respiratory rate 18, 100% room air, CBC with WBC 8.6, hemoglobin 13.3, platelet 336 without marked shift, BMP with BUN/[place] 24/1.19, GFR 68, glucose 174, troponin initial 42 with repeat delta 37, NT proBNPII 9141, chest x-ray with cardiomegaly with vascular congestion, interstitial edema and small bibasilar pleural effusions/atelectasis, right greater than left, EKG with sinus rhythm with no acute evidence of ischemia. In the ED patient ministered DuoNeb therapy and Lasix 40 mg IV x 1. PFSH Medical History (Updated 11/10/24 @ 19:[address] Corazon Diaz MD) History of CVA (cerebrovascular accident) Cardiac LV ejection fraction 30-35% GERD (gastroesophageal reflux disease) Anxiety High blood cholesterol Diabetes mellitus Emphysema, unspecified COPD (chronic obstructive pulmonary disease) Decreased left ventricular function Encounter for screening for malignant neoplasm of lung in current smoker with 30 pack year history or greater Stenosis of right carotid artery Insulin dependent diabetes mellitus History of non-ST elevation myocardial infarction (NSTEMI) (06/11/18) Emphysema lung Asthma Type 2 diabetes mellitus Arthritis Pancreatitis GERD (gastroesophageal reflux disease) Nicotine dependence Atherosclerosis of coronary artery of [place] heart without angina pectoris Hyperlipidemia Essential (primary) hypertension Home Medications ?Medication ?Instructions ?Recorded ?Last Taken ?Type blood sugar diagnostic (FreeStyle #50 ea 04/02/21 Unkn own Rx Test strips) blood-glucose meter (FreeStyle #1 ea 04/02/21 Unknown Rx System Kit) lancets 28 gauge (FreeStyle #50 ea 04/02/21 Unknown Rx Lancets) pen needle, diabetic 31 gauge x #100 ea 04/02/21 Unkno wn Rx 3/16 (1st Tier Unifine Pentips Plus) Handicap placard #1 ea 07/22/23 Unknown Rx pen needle, diabetic 31 gauge x #100 ea 10/28/23 Unkno wn Rx 5/16 (Comfort EZ Pen Sublette) evolocumab 140 mg/mL subcutaneous 140 mg subcut Q2W ch olesterol #6 mL 05/09/24 09/12/24 Rx pen injector (Repatha SureClick) insulin glargine 100 unit/mL (3 20 unit subcut DAILY D iabetes 06/17/24 09/18/24 History mL) subcutaneous pen (Lantus Solostar U-100 Insulin) omeprazole 20 mg capsule,delayed 20 mg PO DAILY reflux #90 caps 09/13/24 09/18/24 Rx release fluticasone propionate 50 2 spray intranasal DAILY PRN nasal 09/18/24 Unknown History mcg/actuation nasal congestion spray,suspension (Flonase Allergy Relief) nitroglycerin 0.4 mg sublingual 0.4 mg sublingual Q5M PRN 09/27/24 Unknown Rx tablet Cardiac/Chest Pain #25 tabs clindamycin HCl 300 mg capsule 300 mg PO Q8H 10 days # 30 caps 10/23/24 Unknown Rx (Cleocin HCl) ondansetron 4 mg disintegrating 4 mg PO TID PRN nausea and 10/27/24 Unknown Rx tablet vomiting #21 tabs aspirin 81 mg chewable tablet 81 mg PO BREAKFAST preve ntative 11/03/24 Unknown Rx #90 tabs clopidogrel 75 mg tablet 75 mg PO DAILY #90 tabs 10/06 04/30 Unknown Rx dapagliflozin propanediol 10 mg 10 mg PO DAILY diabete s #90 TABLETS 11/03/24 Unknown Rx tablet (Farxiga) ezetimibe 10 mg tablet 10 mg PO DAILY cholesterol # 90 tabs 11/03/24 Unknown Rx furosemide 40 mg tablet 40 mg PO DAILY #90 tabs 10/06 04/30 Unknown Rx albuterol sulfate 90 mcg/actuation 2 puff inhalation Q 4H PRN 11/04/24 Unknown Rx aerosol inhaler shortness of breath or wheez ing #6.7 grams mometasone-formoterol HFA 100 2 puff inhalation BID CO PD #13 11/04/24 Unknown Rx mcg-5 mcg/actuation aerosol grams inhaler (Dulera) spironolactone 25 mg tablet 25 mg PO DAILY diuretic #3 0 tabs 11/04/24 Unknown Rx Allergy/AdvReac Type Severity Reaction Status Date / Time amoxicillin Allergy Angioedema Verified 11/10/24 14:50 lindane Allergy Rash Verified 11/10/24 14:50 Family History Father Asthma Alcoholism Arthritis Heart disease Hypertension High cholesterol CVA (cerebral vascular accident) Lung cancer Grandfather Myocardial infarction other (Patient does not know his maternal/maternal family history.) Surgical History S/P CABG x 4 History of hernia repair History of carotid endarterectomy (01/06/14) H/O coronary artery bypass surgery (2006) History of left heart catheterization (06/11/18) Social History (Updated 11/10/24 @ 19:[address] Corazon Diaz MD) household members: none Smoking Status: Light Smoker (<10/day) Tobacco: How many years used: 45 Electronic Cigarette Use: not used second hand exposure: Yes quit status: considering quitting alcohol intake: never substance use type: does not use caffeine: Yes Type: coffee Number of servings: 5 what type of physical activity do you participate in: none ROS ROS Narrative Admission Review of Systems: CONSTITUTIONAL: No weight loss, fever, chills, + weakness or fatigue. HEENT: + History of previous stroke with stable mild facial droop. Eyes: No visual loss, blurred vision, double vision or yellow sclerae. Ears, Nose, Throat: No hearing loss, sneezing, congestion, runny nose or sore throat. SKIN: No itching, lesions except + bilateral lower extremity erythema, stasis blister with serous drainage. CARDIOVASCULAR: + Weight gain, orthopnea, increasing distal edema. No chest pain, chest pressure or chest discomfort, palpitations, syncopal events. RESPIRATORY: + Dyspnea. No marked cough or sputum, wheezing, hemoptysis. GASTROINTESTINAL: No anorexia, nausea, vomiting or diarrhea, abdominal pain, melena, BRBPR. GENITOURINARY: No dysuria, frequency, urgency or retention. NEUROLOGICAL: + History of previous stroke with stable mild facial droop, no headache, dizziness, syncope, paralysis, ataxia, numbness or tingling in the extremities, focal weakness, change in bowel or bladder control, seizure. MUSCULOSKELETAL: + muscle, back pain, joint pain or stiffness. HEMATOLOGIC: No anemia. + Easy bleeding/bruising. LYMPHATICS: No enlarged nodes. No history of splenectomy. PSYCHIATRIC: + History of anxiety and depression. ENDOCRINOLOGIC: No reports of sweating, cold or heat intolerance. No polyuria or polydipsia. ALLERGIES: + History of asthma, allergic rhinitis, angioedema. Vital Signs Vital Signs Vital Signs: 11/10/24 14:47 11/10/24 15:49 11/10/24 16:17 Temperature 97.6 F L 97.6 F L Temperature Source Oral Oral Pulse Rate 97 96 102 H Respiratory Rate 21 H 16 22 H Respiratory Effort Respiratory Pattern Blood Pressure 106/69 119/67 119/67 Blood Pressure Mean 81 84 84 Pulse Ox 95 93 96 Oxygen Delivery Method Room Air Room Air 11/10/24 16:17 11/10/24 16:19 11/10/24 16:19 Temperature Temperature Source Pulse Rate Respiratory Rate 18 Respiratory Effort Short of Breath Labored Respiratory Pattern Blood Pressure Blood Pressure Mean Pulse Ox 95 Oxygen Delivery Method Room Air Room Air Room Air 11/10/24 17:00 11/10/24 17:20 11/10/24 18:00 Temperature 98.3 F 98.7 F Temperature Source Oral Oral Pulse Rate 94 96 98 Respiratory Rate 18 18 18 Respiratory Effort Respiratory Pattern Normal Blood Pressure 124/64 H 133/79 H Blood Pressure Mean 84 97 Pulse Ox 94 100 Oxygen Delivery Method Room Air Physical Exam Narrative Physical Examination: General: Awake, alert, oriented x 3 and cooperative, seated upright in the ED bed, fatigued, notes increased dyspnea despite recent diuresis but no evidence of distress. Skin: Normal color, normal turgor, no icterus, no cyanosis except significant venous stasis skin changes with stasis blisters, occasional stage ecchymoses and abrasion. HEENT: AT/NC, EOMI, PERRLA, MMM, no carotid bruits, JVD difficult to assess given thick pratt, evident facial droop mildly correcting with smile noted to be chronic per family. Lungs: Significantly diminished, greater bases, mildly increased respiratory rate but no distress, overtly appreciated significant no rales, ronchi or wheezing. Heart: Regular rate and rhythm; no gallop, rub audible. Abdomen: Soft, NTTP, ND, hyperactive BS, no appreciated HSM. Extremities: No cyanosis, no clubbing, significant pedal to proximal thigh bilateral 3+ pitting edema with significant venous stasis skin changes, stasis blisters with serous drainage. Neurological: Patient awake, alert, oriented as noted, cognitive function intact; pupils equally reactive to light and accommodation, cranial nerves grossly normal aside evident facial droop mildly correcting with smile noted to be chronic per family, moving all 4 extremities, no focal deficits, strength moderately to severely globally decreased. Psychiatric: Affect appears fatigued, reports being more dyspneic despite recent diuresis, no acute evidence of depressive or anxiety feelings but does have underlying history. Results Lab / Micro Data 11/10/24 16:15 11/10/24 16:15 Labs: Laboratory Results - last 24 hr 11/10/24 16:15: WBC 8.6, RBC 4.43 L, Hgb 13.3, Hct 41.6, MCV 93.9, MCH 30.0, MCHC 32.0, RDW Std Deviation 48.4 H, RDW Coeff of Maycol 14.2, Plt Count 336, MPV 9.3, Immature Gran % (Auto) 0.300, Neut % (Auto) 69.7, Lymph % (Auto) 20.2, [place] % (Auto) 8.0, Eos % (Auto) 1.5, Baso % (Auto) 0.3, Absolute Neuts (auto) 6.0, Absolute Lymphs (auto) 1.74, Nucleated RBC % 0, Sodium 136, Potassium 3.7, Chloride 101, Carbon Dioxide 23.1, Anion Gap 12, BUN 24 H, Creatinine 1.19, Est GFR (MDRD) Non-Af 68, BUN/Creatinine Ratio 20.3 H, Glucose 174 H, Calcium 8.8, T roponin T High Sens 42 H D, NT pro BNP II 9141 H 11/10/24 17:53: Troponin T Hi Sens 2 Hr 37 H Micro: Microbiology 11/10/24 16:55 Mucosa - Nose SARS-CoV-2, Influenza & RSV (PCR) - Final Imaging Radiology Impression Chest X-Ray 11/10/24 17:00 IMPRESSION: Cardiomegaly with vascular congestion, interstitial edema, and small bibasilar pleural effusions/atelectasis, greater on the right. Increased from prior exam. Reading Location: [id number] Assessment & Plan Assessment/Plan (1) Acute HFrEF (heart failure with reduced ejection fraction): PLAN: Plan The patient is a 64 y/o M w/ PMHx: Hx CVA w/ mild facial droop, CKD stage II per GFR trending, HFrEF, GERD, Anxiety and Depression, HTN, HLD, Diabetes mellitus type II, COPD/Asthma, Carotid disease s/p CEA, CAD s/p CABG x 4, Tobacco use who presents to the [facility] ED on 11/10/2024 with history of recently being initiated on Lasix outpatient approximate 1 week prior taking 2 pills daily in addition to spironolactone however he notes he has been having weight gain as well as increased lower extremity swelling, orthopnea and dyspnea worse with exertion with home health evaluation 11/09/2024 with nurse noting significant venous stasis blistering because of worsening edema prompting eventual ED evaluation to be cautious. #1. Acute on Chronic Decompensated HFrEF exacerbation with associated indeterminate cardiac enzymes, chronic: CXR obtained in the ED w/ evidence of cardiomegaly with vascular congestion/interstitial edema and small bilateral pleural effusion. Patient administered IV lasix in the ED, will admit to PCU, given complaints of increased dyspnea in the ED upon evaluation will request ABG, will supplement oxygen, will maintain on cardiac telemetry, will continue to obtain cardiac enzyme series, obtain serial EKGs, continue IV lasix diuresis, monitor I/Os, maintain on intake restriction, continue medical therapy, obtain TSH and magnesium level. 09/18/2024 echocardiogram with LVEF 35%, normal LV size, akinetic apex, severely hypokinetic mid anterior region with LV systolic function noted to have been same compared to previous study, global longitudinal strain severely abnormal. Will place send nydia wraps with lower extremity elevation with wound RN consultation given stasis blisters. #2. CAD: Status post CABG x 4, will continue aspirin, Plavix, not on statin therapy possibly secondary to intolerance but on Repatha, not on NYDIA/ARB potentially secondary to renal disease but uncertain, also per current list not on beta-jonatan therapy for unclear etiology, attempting to clarify. Continue home ezetimibe regimen. #3. Chronic COPD/asthma with allergic rhinitis: Will temporally hold home inhaler and in the interim we will transition to ATC budesonide therapy, PRN albuterol, HOB, IS parameters, may initiate fluticasone if necessary however as needed regimen. #4. Carotid disease: Status post CEA, continue aspirin, Plavix, not on statin therapy possibly secondary to intolerance but as noted on Repatha, continue hypertensive regimen with adjustments as noted, diabetic regimen with alteration/hold as noted. #5. Diabetes mellitus type II: Hold oral home regimen, continue home long- acting insulin regimen, ADA diet, accu checks w/ ISS. #6. Hypertension: Continue home regimen including spironolactone, IV Lasix, per current list does not appear to be on beta-jonatan therapy or NYDIA inhibitor/ARB, attempting to clarify, PRN hydralazine. #7. Hyperlipidemia: Per current list does not appear to be on any statin therapy but is on Repatha, potentially secondary to intolerance, continue outpatient Repatha injection. Continue home ezetimibe the regimen. FLP in AM. #8. Chronic Kidney Disease Stage II per GFR trending: Admission BUN/Cr 24/1.19, GFR 68, baseline renal function appears primarily 0.9-1.1, repeat BMP in AM. #9. Anxiety and depression: Per current list on a regimen, defer to outpatient. #10. Tobacco Abuse: Encouraged cessation, inpatient consultation per RT, NR if desired. #11. Hx CVA: Chronic mild facial droop otherwise family/patient deny any other deficits, continue asa, plavix, not on statin therapy possibly secondary to intolerance but on Repatha and ezetimibe, continue hypertensive regimen as noted, continue diabetic regimen with adjustments as noted. #12. GERD: Will continue patient on PPI. #13. DVT prophylaxis: Lovenox. #14. CODE status: Patient CYNTHIA is his daughter Wagner and living will is currently in place. Discussed CODE status at length including difference between FULL code, DNR-CCA and DNR-CC status. Following discussions about the differences in these status, requested Full Code status. Advanced Care Planning Face to Face Time: 16 minutes. Charges/Coding Visit Charges Inpatient E&M: 81240 Init Hosp L3 Procedures Hospitalists Procedures: 72942 Advncd Care Plan 30 Min
[2024-11-10 20:10] LABS: Magnesium 2.0 mg/dL (1.5-2.2)
--- OUTSIDE RECORDS SUMMARY | 2024-11-10 20:12 | XMS RPT_ITS | CCD ---
Author Organization [facility] CliniSyid Care Team Providers Care Gauger Chief Name Role Phone Unavailable Primary Care Provider [...] [phone] Galdino Baird Attending Provider Unavailable Abby PART TIME FLEXIBLE CLERK, PART TIME FLEXIBLE CLERK-C Kimberli Attending Provider Abby PART TIME FLEXIBLE CLERK, PART TIME FLEXIBLE CLERK-C Kimberli Referring Provider Dr. Xiang Rogers Primary Care Provider [phone] Dr. Xiang Rogers Attending Provider [phone] Dr. Xiang Rogers Referring Provider [phone] Dr. Maribell Moura Emergency Provider Elizabeth, Dr. Flori Jones Admit Provider Elizabeth, Dr. Flori Jones Other Provider Fareed, Dr. Blackwood Other Provider Dr. Steve Fields Attending Provider Unavailable Diamond, Dr. Wilson Other Provider Unavailable Dr. Calos Quinn Attending Provider Roof PART TIME FLEXIBLE CLERK, PART TIME FLEXIBLE CLERK-C Dean Carson Attending Provider Xiang Rogers DO Primary Care Provider Dr. Xiang Rogers Primary Care Provider Dr. Xiang Rogers Attending Provider Dr. Xiang Rogers Referring Provider Roof PART TIME FLEXIBLE CLERK, PART TIME FLEXIBLE CLERK-C Dean Carson Attending Provider Dr. Xiang Rogers Primary Care Provider Dr. Xiang Rogers Referring Provider Dr. Xiang Rogers Attending Provider Dr. Xiang Rogers Primary Care Provider Dr. Xiang Rogers Referring Provider [facility] PART TIME FLEXIBLE CLERK, PART TIME FLEXIBLE CLERK-C Kimberli Attending Provider Xiang Rogers DO Primary [...] Laurita WESTBROOK, Dr. Lyn Other Provider Jean PART TIME FLEXIBLE CLERK-C, Dean Carson Other Provider Magaly Denise Other [...] Xiang Rogers DO Primary Care Provider [phone] Lubna Calhoun Attending Provider Uriel WESTBROOK, Dr. Jane Other Provider Dr. Xiang Rogers DO Referring Provider Dr. Clinton Soares DO Admit Provider Dr. Clinton Soares DO Attending Provider Dr. Xiang Rogers DO Primary Care Provider Dr. Saúl Aguilar DO Emergency Provider Dr. Clinton Soares DO Other Provider Dr. Xiang Rogers DO Primary Care Provider [phone] Lubna Calhoun Attending Provider Lubna Calhoun Referring Provider Lionel WESTBROOK, Dr. Hays Attending Provider Zeb SANDRA, Dr. Ann Other Provider New WESTBROOK, Dr. Thompson Attending Provider Kai WESTBROOK, Dr. Live Attending Provider Zeb SANDRA, Dr. Ann Attending Provider New WESTBROOK, Dr. Thompson Other Provider Magaly Denise Attending Provider Paul SANDRA, Dr. Laura Emergency Provider Azucena SANDRA, Dr. Elkins Emergency Provider Patricio WESTBROOK, Dr. Beltran Referring Provider Patricio WESTBROOK, Dr. Beltran Emergency Provider Paul SANDRA, Dr. Laura Attending Provider Azucena SANDRA, Dr. Elkins Attending Provider Dr. Bronson Tolentino DO Emergency Provider Patricio WESTBROOK, Dr. Beltran Attending Provider Dr. Bronson Tolentino DO Attending Provider Saúl Flowers Consulting Unavailable Saúl Flowers Attending Unavailable Mendon, Saúl Referring Unavailable Brown, Xiang R Primary Care Unavailable Jose Small Referring Unavailable LionelSaúl Attending Unavailable Brown, Xiang R Primary Care Unavailable Calos Quinn Attending Unavailable Brown, Xiang R Primary Care Unavailable Brown, Xiang R Referring Unavailable Lenny BELL, Ronit Attending Unavailable Brown, Xiang R Primary Care Unavailable Clinton Soares Admitting Unavailable Clinton Soares Consulting Unavailable Clinton Soares Attending Unavailable Brown, Xiang R Primary Care Unavailable Steve Esteban Consulting Unavailable Steve Esteban Attending Unavailable Steve Esteban Admitting Unavailable Brown, Xiang R Primary Care Unavailable Triston Muro Consulting Unavailable Lionel, Saúl Attending Unavailable Lionel, Saúl Referring Unavailable Brown, Xiang R Primary Care Unavailable Trinidad DEVINE, Magaly Nelson Attending Unavail able Magaly Denise Referring Unavail able Brown, Xiang R Primary Care Unavailable Brown, Xiang R Attending Unavailable Brown, Xiang R Referring Unavailable Brown, Xiang R Primary Care Unavailable Seth Carrington Attending Unavailable Seth Carrington Consulting Unavailable Donna Wolff Attending Unavailable Donna Wolff Consulting Unavailable Brown, Xiang R Referring Unavailable Magaly [...] Primary Care Unavailable Calos Quinn Attending Unavailable Brown, Xiang R Referring Unavailable MendonSaúl Attending Unavailable Brown, Xiang R Primary Care Unavailable Lionel Saúl Attending Unavailable Malney, Lubna Referring Unavailable Brown, Xiang R Primary [...] Unavailable Brown, Xiang R Referring Unavailable Lenny PART TIME FLEXIBLE CLERK, Ronit Attending Unavailable Brown, Xiang R Primary Care Unavailable Lenny PART TIME FLEXIBLE CLERK, Ronit Attending Unavailable Lenny PART TIME FLEXIBLE CLERK, Ronit Referring Unavailable Brown, Xiang R Primary Care Unavailable Jose Small Referring Unavailable Jose Small Attending Unavailable Brown, Xiang R Primary Care Unavailable Lawson Castellon Attending Unavailable Brown, Xiang R Primary Care Unavailable Valentín Miller Attending Unavailable Brown, Xiang R Primary Care Unavailable Severo Zeng Attending Unavailable Brown, Xiang R Primary Care Unavailable Devin Curry Referring Unavailable CurryDevin Attending Unavailable Brown, Xiang R Primary Care Unavailable Bronson Tolentino Attending Unavailable Brown, Xiang R Primary Care Unavailable Abby PART TIME FLEXIBLE CLERK, Kimberli Referring Unavailable Abby PART TIME FLEXIBLE CLERK, Kimberli Attending Unavailable Brown, Xiang R Primary Care Unavailable Lenny PART TIME FLEXIBLE CLERK, Ronit Referring Unavailable Lenny PART TIME FLEXIBLE CLERK, Ronit Attending Unavailable Brown, Xiang R Primary Care Unavailable Clinton Soares Admitting Unavailable Clinton Soares Consulting Unavailable Donna Wolff Attending Unavailable Brown, Xiang R Primary Care Unavailable Seth Carrington Consulting Unavailable Steve Esteban Consulting Unavailable Steve Esteban Admitting Unavailable Seth Carrington Attending Unavailable Brown, Xiang R Primary Care Unavailable Amro, Ahmed Consulting Unavailable Mostafa, Otilia Consulting Unavailable Fareed, Merced Consulting Unavailable George Ball Consulting Unavailable Kai, [place] Consulting Unavailable Belal, Farouk Consulting Unavailable Jose Garcia Consulting Unavailable Nagadulce mariathi, Nagapradee Consulting Unavailabl e Satti, Abisai Consulting Unavailable Riki Shay Consulting Unavailable Dean Pena NP Consulting Unavailable Trinidad DEVINE, Magaly Nelson Consulting Unavail able Avery Valderrama Consulting Unavailable Triston Muro Consulting Unavailable Donna Wolff Consulting Unavailable Saúl Aguilar Attending Unavailable Brown, Xiang R Primary Care Unavailable ManleyGreg martinezison Attending Unavailable Manley, Lubna Referring Unavailable Brown, Xiang R Primary Care Unavailable Saúl Flowers Attending Unavailable Brown, Xiang R Primary Care Unavailable Kai, Calos Attending Unavailable Brown, Xiang R Primary Care Unavailable Manley, Lubna Referring Unavailable Manley Lubna Attending Unavailable Brown, Xiang R Primary Care Unavailable Tomi Mckeonadee Attending Unavailabl e Amro, Ahmed Consulting Unavailable Mostafa, Otilia Consulting Unavailable Fareed, Merced Consulting Unavailable George Ball Consulting Unavailable Kai, Calos Consulting Unavailable Belal, Farouk Consulting Unavailable Jose Garcia Consulting Unavailable Nagajothi, Nagapradee Consulting Unavailabl e Satti, Abisai Consulting Unavailable Ponce Riki Consulting Unavailable Roof PART TIME FLEXIBLE CLERKDean Consulting Unavailable Magaly Denise Consulting Unavail able Avery Valderrama Consulting Unavailable Donna Wolff Consulting Unavailable Donna Wolff Attending Unavailable Calos Quinn Attending Unavailable Seth Carrington Consulting Unavailable Seth Carrington Attending Unavailable Xiang Rogers Attending Unavailable Xiang Rogers Referring Unavailable Xiang Rogers Primary Care Unavailable Trinidad DEVINE, Magaly Nelson Attending Unavail able Calos Quinn Consulting Unavailable Xiang Rogers Primary Care Unavailable Dr. Xiang Rogers DO Primary Care Provider [phone] Dr. Xiang Rogers DO Referring Provider [phone] Leah King Attending Provider [phone] Allergies Allergy Classification Reported Allergen(s) Allergy Type [...] - [place] (1 source) Amoxicillin Drug Allergy 11-04-2024 [facility] Repository (1 source) Lindane Drug Allergy 11-04-2024 [facility] (1 source) Unable to Assess Drug allergy (disorder) 06-17-2024 [facility] Medications Current Medications Medication Drug Class(es) [...] Uncontrolled E11.65 clindamycin 300 mg oral capsule (19 sources) Lincosamide Antibacterial Start: 10-23-2024 Start: 05-24-2023 End: 07-28-2023 dapagliflozin 10 mg oral tab let (20 sources) Sodium-Glucose Cotransporter 2 Inhibitor Start: 11-03-2024 Start: 04-24-2022 End: 10-19-2024 DOCOSAHEXANOIC ACID/EPA (FIS H OIL ORAL) (7 sources) DOCOSAHEXANOIC A ANNA MARIE/EPA (FISH OIL ORAL) Take by mouth. Active DOCOSAHEXANOIC A ANNA MARIE/EPA (FISH OIL ORAL) Take by mouth. 0 Active Comment on above: Take by mouth. 1 ml evolocumab 140 mg/ml au to-injector (20 sources) PCSK9 Inhibitor Start: 01-04-2024 End: 05-09-2024 Start: 07-28-2023 End: 11-03-2023 ezetimibe 10 mg oral tablet (20 sources) Dietary Cholesterol Absorption Inhibitor Start: 11-03-2024 Start: 06-17-2024 End: 09-27-2024 Start: 11-03-2023 End: 05-10-2024 Handicap placard (1 source) Start: 07-22-2023 Handicap [...] RNA Synthetase Inhibitor Antibacterial Start: 06-15-2017 mupirocin (BACTROBAN) 2 % ointment Indications: Boil of trunk Apply 1 application to affected area three times daily. Location: back 30 g 06/15/2017 Active Comment on above: Apply 1 application to affected area three times daily. Location: back Nirmatrelvir-Ritonavir (Paxlovid (Eua)) 150 mg x 2- 100 mg tablet (1 source) Start: 07-18-2021 Nirmatrelvir-R itonav ir (Paxlovid (Eua)) 150 mg x 2- 100 mg tablet Active 0 PO .COMPLEX July 18, 2021 11:59pm take TWO 150 mg tablets of nirmatrelvir with ONE 100 mg tablet of ritonavir twice daily for 5 days ondansetron 4 mg disintegrating oral tablet (20 sources) Serotonin-3 Receptor Antagonist Start: 10-27-2024 Start: 08-23-2023 End: 09-21-2024 spironolactone 25 mg oral ta blet (13 sources) Aldosterone Antagonist Start: 11-04-2024 Start: 06-20-2024 End: 09-21-2024 (20 sources) Start: 11-04-2024 Start: 06-18-2024 End: 10-19-2024 Start: 06-18-2024 Start: [...] January 13, 2023 January 26, 2023 2:35pm [id number] 200 actuat albuter ol 0.09 mg/actuat metered dose inhaler (20 sources) beta2-Adrenergic Agonist Start: 06-28-2024 End: 09-18-2024 Start: 04-02-2021 take 1 puff(s) by in halation every four hours as needed Albuterol Sulfate Active 2 PUFF INHALATION EVERY 4 HOURS NEEDED April 02, 2021 10:46am Start: 04-12-2019 End: 11-04-2024 Start: 04-12-2019 End: 06-17-2024 Albuterol Sulfate 90 [...] Inhibitor, Nonsteroidal Anti-inflammatory Drug Start: 04-08-2017 End: 11-03-2024 aspirin 325 mg t ablet Take 81 [...] sources) P2Y12 Platelet Inhibitor Start: 09-18-2024 End: 11-03-2024 Start: 04-20-2024 End: 09-09-2024 Start: 06-12-2018 End: 01-26-2023 Comment on above: Take 75 mg by mouth once daily. doxycycline monohydrate 100 mg oral tablet (20 [...] End: 09-18-2024 furosemide 40 mg oral tablet (20 sources) Loop Diuretic Start: 06-20-2024 End: 11-03-2024 icosapent ethyl 1000 mg oral capsule (20 [...] take 20 units insulin Start: 01-13-2023 End: 10-27-2024 Start: 01-13-2023 End: 07-22-2023 Insulin Lispro Protamin-Lisp [...] as dir ected every 24 hours. Nirmatrelvir-Ritonavir (20 sources) Start: 07-18-2021 End: 09-18-2021 Start: 07-18-2021 [...] the tongue every 5 minutes as needed. [place]-3 Fatty Acids-Fish Oil (12 sources) Start: 07-10-2017 End: 07-28-2017 [place]-3 Fatty Acids-Fish Oil Discontinued 2 EACH PO DAILY July 10, 2017 3:35pm July 28, 2017 1:36pm Start: 07-10-2017 End: 07-28-2017 [place]-3 Fatty Acids-Fish Oil Discontinued 2 EACH PO DAILY July 09, 2017 11:00pm July 28, 2017 12:36pm Start: 07-10-2017 End: 07-28-2017 [place]-3 Fatty Acids-Fish Oil Discontinued 2 EACH PO DAILY July 10, 2017 12:00am July 28, 2017 1:36pm [place]-3 Fatty Acids-Fish Oil 1 EACH capsule (1 source) Start: 07-10-2017 End: 07-28-2017 [place]-3 Fatty Acids-Fish Oil 1 EACH capsule Discontinued 2 NMA PO DAILY July 10, 2017 12:00am July 28, 2017 1:36pm omeprazole 20 mg delayed release oral capsule (20 sources) Proton Pump Inhibitor Start: 01-01-2022 End: 09-13-2024 Start: 07-10-2017 End: 07-14-2017 pantoprazole 40 mg [...] Comment on above: Take 2 tablets by [facility] once daily. simvastatin 40 mg oral table [...] triamcinolone acetonide 5 mg /ml topical cream (20 sources) Corticosteroid Start: 01-13-2023 End: 01-26-2023 Start: [...] bypass status] Onset: 04-06-2006 Episodic Diabetes mellitus with complications (1 source) Type 2 diabetes mellitus with hyperglycemia; Translations: [Type 2 diabetes mellitus with hyperglycemia] Onset: 11-02-2024 Chronic Diabetes mellitus without complication (20 sources) Diabetes mellitus; Translations: [Insulin dependent diabetes mellitus] Onset: 06-24-2024 Chronic Diabetes mellitus without complication (20 sources) Hyperglycemia; Translations: [Hyperglycemia, unspecified] Onset: 06-24-2024 07-06-2020 Episodic Disorders of lipid metabolism (20 sources) Pure hypercholesterolemia ; Translations: [Pure hypercholesterolemia , unspecified] Onset: 10-09-2015 10-09-2015 Chronic E Codes: Fall (15 sources) Fall; Translations: [Unspecified fall, initial encounter] 04-25-2023 Episodic Essential hypertension (20 sources) Essential hypertension; Translations: [Essential (primary) hypertension] Onset: 06-20-2024 Chronic Fluid and electrolyte disorders (20 sources) Hyponatremia; Translations: [Hypo-osmolality and hyponatremia] 07-06-2020 Episodic Headache; including migraine (20 sources) Headache; Translations: [Headache] 08-13-2020 Episodic Heart valve disorders (20 sources) Aortic valve stenosis; Translations: [Nonrheumatic aortic (valve) stenosis] Onset: 10-18-2024 07-12-2024 Chronic Heart valve disorders (14 sources) Heart murmur; Translations: [Cardiac murmur, unspecified] Onset: 07-02-2024 04-01-2024 Episodic Hypertension with complications and secondary hypertension (1 source) Hypertensive heart disease with heart failure; Translations: [Hypertensive heart disease with heart failure] Onset: 10-25-2024 Chronic Nonspecific chest pain (20 sources) Chest discomfort; Translations: [Other chest pain] Onset: 11-01-2024 06-27-2024 Episodic Occlusion or stenosis of precerebral arteries (20 sources) Right carotid artery stenosis; Translations: [Occlusion and stenosis of right carotid artery] Onset: 10-18-2024 Chronic Open wounds of extremities (1 source) Unspecified open wound of right great toe without damage to nail, initial encounter; Translations: [Unspecified open wound of right great toe without damage to nail, initial encounter] Onset: 09-29-2024 Episodic Other aftercare (12 sources) Surgical follow-up; Translations: [Encounter for surgical aftercare following surgery on the circulatory system] 05-17-2024 Episodic Other aftercare (2 sources) [employer] (current) use of insulin; Translations: [[employer] (current) use of insulin] Onset: 06-24-2024 Episodic Other and ill-defined heart disease (12 sources) Impaired left ventricular function; Translations: [Heart disease, unspecified] 05-10-2024 Chronic Other and ill-defined heart disease (20 sources) Left ventricular cardiac dysfunction; Translations: [Heart disease, unspecified] 06-27-2024 Chronic Other and ill-defined heart disease (2 sources) Heart disease, unspecified; Translations: [Heart disease, unspecified] Onset: 09-27-2024 Chronic Other circulatory disease (12 sources) Disorder of carotid artery; Translations: [Disorder of arteries and arterioles, unspecified] 09-09-2023 Chronic Other circulatory disease (1 source) Disorder of arteries and arterioles, unspecified; Translations: [Disorder of arteries and arterioles, unspecified] Onset: 09-12-2024 Chronic Other circulatory disease (1 source) Other specified peripheral vascular diseases; Translations: [Other specified peripheral vascular diseases] Onset: 06-03-2024 Chronic Other circulatory disease (5 sources) H/O: heart failure; Translations: [Personal history of other diseases of the circulatory system] 10-23-2024 Episodic Other connective tissue disease (12 sources) Pain in left lower limb; Translations: [Pain in left leg] 10-28-2023 Episodic Other connective tissue disease (1 source) Pain in right arm; Translations: [Pain in right arm] Onset: 10-26-2024 Episodic Other diseases of veins and lymphatics (2 sources) Non-infectious disorder of lymphatics; Translations: [Other specified noninfective disorders of lymphatic vessels and lymph nodes] 11-10-2024 Chronic Other ear and sense organ disorders (16 sources) Eczema of external auditory canal; Translations: [Acute eczematoid otitis externa, bilateral] 10-09-2022 Episodic Other hematologic conditions (20 sources) High troponin I level; Translations: [Other specified abnormalities of plasma proteins] 06-14-2018 Episodic Other injuries and conditions due to external causes (15 sources) Abrasion; Translations: [Other injury of unspecified body region, initial encounter] 04-25-2023 Episodic Other injuries and conditions due to external causes (6 sources) Hematoma; Translations: [Other injury of unspecified body region, initial encounter] 10-21-2024 Episodic Other liver diseases (20 sources) Steatosis of liver; Translations: [Fatty (change of) liver, not elsewhere classified] 06-14-2018 Chronic Other lower respiratory disease (15 sources) Pulmonary edema; Translations: [Chronic pulmonary edema] 06-27-2024 Chronic Other lower respiratory disease (12 sources) Dyspnea on exertion; Translations: [Other forms of dyspnea] 05-10-2024 Episodic Other lower respiratory disease (11 sources) Respiratory insufficiency; Translations: [Other abnormalities of breathing] 06-27-2024 Episodic Other lower respiratory disease (11 sources) Hypoxia; Translations: [Hypoxemia] 06-27-2024 Episodic Other lower respiratory disease (15 sources) Acute respiratory distress; Translations: [Acute respiratory distress] 06-27-2024 Episodic Other nutritional; endocrine; and metabolic disorders (20 sources) Hypocalcemia; Translations: [Hypocalcemia] 06-17-2021 Chronic Other nutritional; endocrine; and metabolic disorders (15 sources) Body mass index 25-29 - overweight; Translations: [Overweight] 06-27-2024 Episodic Other nutritional; endocrine; and metabolic disorders (5 sources) H/O: diabetes mellitus; Translations: [Personal history of other endocrine, nutritional and metabolic disease] 10-23-2024 Episodic Other screening for suspected conditions (not mental disorders or infectious disease) (20 sources) Patient encounter status; Translations: [Encounter for screening for malignant neoplasm of respiratory organs] Onset: 06-24-2024 Episodic Other skin disorders (16 sources) Lesion of skin of foot; Translations: [...] caused by tuberculosis or sexually transmitted disease) (11 sources) Cardiomyopathy; Translations: [Cardiomyopathy, unspecified] 08-06-2024 Chronic Peripheral and visceral atherosclerosis (20 sources) Intermittent claudication; Translations: [Peripheral vascular disease, unspecified] Onset: 05-05-2024 09-10-2023 Chronic Comment on above: LEAS Pleurisy; pneumothorax; pulmonary collapse (17 sources) Bilateral pleural effusion; Translations: [Pleural effusion, not elsewhere classified] Onset: 06-24-2024 06-27-2024 Episodic Residual codes; unclassified (20 sources) Noncompliance with medication regimen; Translations: [Patient's other noncompliance with medication regimen] 06-14-2018 Episodic Residual codes; unclassified (5 sources) Peripheral edema; Translations: [Localized edema] 10-23-2024 Episodic Respiratory failure; insufficiency; arrest (adult) (17 sources) Acute hypoxemic respiratory failure; Translations: [Acute respiratory failure with hypoxia] Onset: 06-24-2024 06-27-2024 Episodic Skin and subcutaneous tissue infections (20 sources) Cellulitis; Translations: [Cellulitis, unspecified] Onset: 10-27-2024 03-09-2022 Episodic Spondylosis; intervertebral disc disorders; other [...] obstruction or gangrene] Onset: 01-05-2017 01-05-2017 Episodic Other aftercare (1 source) Encounter for surgical aftercare following surgery on the circulatory system; Translations: [Encounter for surgical aftercare following surgery on the circulatory system] Onset: 06-23-2024 Episodic Other connective tissue disease (1 source) Pain in left leg; Translations: [Pain in left leg] Onset: 05-05-2024 Episodic Other lower respiratory disease (1 source) Other abnormalities of breathing; Translations: [Other abnormalities of breathing] Onset: 06-24-2024 Episodic Other lower respiratory disease (2 sources) Acute pulmonary edema; Translations: [Acute pulmonary edema] Onset: 06-24-2024 Episodic Other nutritional; endocrine; and metabolic disorders (2 sources) Overweight; Translations: [Overweight] Onset: 06-24-2024 Episodic Screening and history of mental health and substance abuse codes (1 source) Personal history of nicotine dependence; Translations: [Personal history of nicotine dependence] Onset: 06-06-2024 Episodic Results Test Name Value Interpretation Reference Range Facility Internal Medicine Office Vis clarissa 11-04-2024 Internal Medicine Office Visit [facility] Absolute lymphocyte countOrd ered By: Magaly Abdi on 10-27-2024 Lymphocytes Auto (Unsp spec) [#/Vol] 0.95 10*3/uL 0.83-4.51 [facility] Anion gap in Serum or Plasma Ordered By: Bronson Tolentino on 10-27-2024 Anion gap [Moles/Vol] 13 mmol/L 08-18 [facility] Automated lymphocyte count a s percentage of total leukocytesOrdered By: Magaly Abdi on 10-27-2024 Lymphocytes/100 WBC Auto (Unsp spec) 14.2 % Low - [facility] BUN/creatinine ratioOrdered By: Bronson Tolentino on 10-27-2024 Urea nitrogen/Creatinine [Mass ratio] 18.1 mg/mg 01-23 [facility] Basic Metabolic Profile (BMP )on 10-27-2024 BUN/CRE 18.1 RATIO Normal 01-23 [facility] Comment on above: Performed By: #### L 500.3400, L501.2450, L100.0100, L500.2500, L503.6005, L501.5200 ####[facility] [address] [place], [address] Calcium [Mass/Vol] 8.8 mg/dL Normal 7.6-11.0 [facility] Comment on above: Performed By: #### L 500.3400, L501.2450, L100.0100, L500.2500, L503.6005, L501.5200 ####[facility] [address] [place], [address] Chloride [Moles/Vol] 98 mmol/L Normal 98-108 [facility] Comment on above: Performed By: #### L 500.3400, L501.2450, L100.0100, L500.2500, L503.6005, L501.5200 ####[facility] [address] [place], [address] CO2 [Moles/Vol] 20.9 mmol/L Low 21.0-32.0 [facility] Comment on above: Performed By: #### L 500.3400, L501.2450, L100.0100, L500.2500, L503.6005, L501.5200 ####[facility] [address] [place], [address] Creatinine [Mass/Vol] 0.99 mg/dL Normal 0.70-1.20 [facility] Comment on above: Performed By: #### L 500.3400, L501.2450, L100.0100, L500.2500, L503.6005, L501.5200 ####[facility] [address] [place], [address] ECRCL 87.66 ml/min Normal 50-250 [facility] Comment on above: Performed By: #### L 500.3400, L501.2450, L100.0100, L500.2500, L503.6005, L501.5200 ####[facility] [address] [place], [address] GAP 13 Normal 5-15 [facility] Comment on above: Performed By: #### L 500.3400, L501.2450, L100.0100, L500.2500, L503.6005, L501.5200 ####[facility] [address] [place], [address] GFR/1.73 sq M.predicted among non-blacks MDRD (S/P/Bld) [Vol rate/Area] 85 mL/min/{1.73_m2} Normal >60 [facility] Comment on above: Result Comment: mL/m in/1.73m2 CKD-EPI Creatinine Equation (2020) Performed By: #### L 500.3400, L501.2450, L100.0100, L500.2500, L503.6005, L501.5200 ####[facility] [address] [place], [address] Glucose [Mass/Vol] 203 mg/dL High 70-99 [facility] Comment on above: Performed By: #### L 500.3400, L501.2450, L100.0100, L500.2500, L503.6005, L501.5200 ####[facility] [address] [place], [address] Potassium [Moles/Vol] 4.2 mmol/L Normal 3.3-5.1 [facility] Comment on above: Result Comment: Hemo lysis present, Results??could be affected.?? Performed By: #### L 500.3400, L501.2450, L100.0100, L500.2500, L503.6005, L501.5200 ####[facility] [address] [place], [place], [phone] Sodium [Moles/Vol] 132 mmol/L Low 133-145 [facility] Comment on above: Performed By: #### L 500.3400, L501.2450, L100.0100, L500.2500, L503.6005, L501.5200 ####[facility] [address] [place], [address] Urea nitrogen [Mass/Vol] 18 mg/dL Normal 4-19 [facility] Comment on above: Performed By: #### L 500.3400, L501.2450, L100.0100, L500.2500, L503.6005, L501.5200 ####[facility] [address] [place], [place], [phone] Basophil percentageOrdered B y: Magaly Abdi on 10-27-2024 Basophils/100 WBC (Bld) 0.3 % 0-1 [facility] Bilirubin Test strip Ql (U)O rdered By: Bronson Tolentino on 10-27-2024 Bilirubin Ql (U) Negative Negative [facility] Bilirubin directOrdered By: Bronson Tolentino on 10-27-2024 Bilirubin.direct [Mass/Vol] 0.17 mg/dL 0.00-0.30 [facility] Bilirubin, totalOrdered By: Bronson Tolentino on 10-27-2024 Bilirubin [Mass/Vol] 0.99 mg/dL 0.00-1.30 [facility] CBC W/Diff, Automatedon 10-05 Absolute Lymph 0.95 X10 3/uL Normal 0.83-4.51 [facility] Comment on above: Order Comment: REDRA W. PREVIOUS SPECIMEN REJECTED DUE TOCLOTTED. 10/27/2427 Hermilo R Law. Performed By: #### L 100.0100 ####[facility] [address] [place], [address] Absolute Neut 5.3 X10 3/uL Normal 2.0-7.7 [facility] Comment on above: Order Comment: REDRA W. PREVIOUS SPECIMEN REJECTED DUE TOCLOTTED. 10/27/2427 Hermilo R Law. Performed By: #### L 100.0100 ####[facility] [address] [place], [address] Basophils/100 WBC (Bld) 0.3 % Normal 0-1 [facility] Comment on above: Order Comment: REDRA W. PREVIOUS SPECIMEN REJECTED DUE TOCLOTTED. 10/27/2427 Hermilo R Law. Performed By: #### L 100.0100 ####[facility] [address] [place], [address] Eosinophils/100 WBC (Bld) 2.2 % Normal 0-5 [facility] Comment on above: Order Comment: REDRA W. PREVIOUS SPECIMEN REJECTED DUE TOCLOTTED. 10/27/2427 Hermilo R Law. Performed By: #### L 100.0100 ####[facility] [address] [place], [address] Erythrocyte distribution width (RBC) [Ratio] 13.2 % Normal 11.6-14.6 [facility] Comment on above: Order Comment: REDRA W. PREVIOUS SPECIMEN REJECTED DUE TOCLOTTED. 10/27/2427 Hermilo R Law. Performed By: #### L 100.0100 ####[facility] [address] [place], [address] Hematocrit (Bld) [Volume fraction] 41.6 % Normal 40-54 [facility] Comment on above: Order Comment: REDRA W. PREVIOUS SPECIMEN REJECTED DUE TOCLOTTED. 10/27/2427 Hermilo R Law. Performed By: #### L 100.0100 ####[facility] [address] [place], [address] Hemoglobin (Bld) [Mass/Vol] 13.3 g/dL Normal 13.0-16.5 [facility] Comment on above: Order Comment: REDRA W. PREVIOUS SPECIMEN REJECTED DUE TOCLOTTED. 10/27/2427 Hermilo R Law. Performed By: #### L 100.0100 ####[facility] [address] [place], [address] IG% 0.400 Normal 0.0-0.9 [facility] Comment on above: Order Comment: REDRA W. PREVIOUS SPECIMEN REJECTED DUE TOCLOTTED. 10/27/2427 Hermilo R Law. Result Comment: IG% - Immature Granulocytes (promyelocytes, myelocytes andmetamyelocytes) > 1% indicates that a LEFT SHIFT is Present. Performed By: #### L 100.0100 ####[facility] [address] [place], [address] Lymphocytes/100 WBC (Bld) 14.2 % Low 19-41 [facility] Comment on above: Order Comment: REDRA W. PREVIOUS SPECIMEN REJECTED DUE TOCLOTTED. 10/27/2427 Hermilo R Law. Performed By: #### L 100.0100 ####[facility] [address] [place], [address] MCH (RBC) [Entitic mass] 30.2 pg Normal 27.0-32.0 [facility] Comment on above: Order Comment: REDRA W. PREVIOUS SPECIMEN REJECTED DUE TOCLOTTED. 10/27/2427 Hermilo R Law. Performed By: #### L 100.0100 ####[facility] [address] [place], [address] MCHC (RBC) [Mass/Vol] 32.0 g/dL Normal 32-36 [facility] Comment on above: Order Comment: REDRA W. PREVIOUS SPECIMEN REJECTED DUE TOCLOTTED. 10/27/2427 Hermilo R Law. Performed By: #### L 100.0100 ####[facility] [address] [place], [address] MCV (RBC) [Entitic vol] 94.5 fL High 80-94 [facility] Comment on above: Order Comment: REDRA W. PREVIOUS SPECIMEN REJECTED DUE TOCLOTTED. 10/27/2427 Hermilo R Law. Performed By: #### L 100.0100 ####[facility] [address] [place], [address] Monocytes/100 WBC (Bld) 4.0 % Normal 0-10 [facility] Comment on above: Order Comment: REDRA W. PREVIOUS SPECIMEN REJECTED DUE TOCLOTTED. 10/27/2427 Hermilo R Law. Performed By: #### L 100.0100 ####[facility] [address] [place], [address] Neutrophils/100 WBC (Bld) 78.9 % High 47-70 [facility] Comment on above: Order Comment: REDRA W. PREVIOUS SPECIMEN REJECTED DUE TOCLOTTED. 10/27/2427 Hermilo R Law. Performed By: #### L 100.0100 ####[facility] [address] [place], [address] Nucleated RBC (Bld) [#/Vol] 0 10*3/uL Normal 0-5 [facility] Comment on above: Order Comment: REDRA W. PREVIOUS SPECIMEN REJECTED DUE TOCLOTTED. 10/27/2427 Hermilo R Law. Performed By: #### L 100.0100 ####[facility] [address] [place], [address] Platelet mean volume (Bld) [Entitic vol] 9.6 fL Normal 6.2-12.0 [facility] Comment on above: Order Comment: REDRA W. PREVIOUS SPECIMEN REJECTED DUE TOCLOTTED. 10/27/2427 Hermilo R Law. Performed By: #### L 100.0100 ####[facility] [address] [place], [address] Platelets (Bld) [#/Vol] 245 10*3/uL Normal 150-450 [facility] Comment on above: Order Comment: REDRA W. PREVIOUS SPECIMEN REJECTED DUE TOCLOTTED. 10/27/2427 Hermilo R Law. Performed By: #### L 100.0100 ####[facility] [address] [place], [address] RBC (Bld) [#/Vol] 4.40 10*6/uL Low 4.6-6.2 [facility] Comment on above: Order Comment: REDRA W. PREVIOUS SPECIMEN REJECTED DUE TOCLOTTED. 10/27/2427 Hermilo R Law. Performed By: #### L 100.0100 ####[facility] [address] [place], [address] RDW SD 46.2 fl High 35.1-43.9 [facility] Comment on above: Order Comment: REDRA W. PREVIOUS SPECIMEN REJECTED DUE TOCLOTTED. 10/27/2427 Hermilo R Law. Performed By: #### L 100.0100 ####[facility] [address] [place], [address] WBC (Bld) [#/Vol] 6.7 10*3/uL Normal 4.4-11.0 [facility] Comment on above: Order Comment: REDRA W. PREVIOUS SPECIMEN REJECTED DUE TOCLOTTED. 10/27/2427 Hermilo R Law. Performed By: #### L 100.0100 ####[facility] [address] [place], [address] Absolute Neut Normal 2.0-7.7 [facility] Comment on above: Result Comment: This specimen has been REJECTED due to Laboratory criteria:Clotted.[email or web address] has been notified of need of recollection.10/27/2426 Hermilo R Law Performed By: #### L 500.3400, L501.2450, L100.0100, L500.2500, L503.6005, L501.5200 ####[facility] [address] [place], [address] HCT Normal 40-54 [facility] Comment on above: Result Comment: This specimen has been REJECTED due to Laboratory criteria:Clotted.[email or web address] has been notified of need of recollection.10/27/2426 Hermilo R Law Performed By: #### L 500.3400, L501.2450, L100.0100, L500.2500, L503.6005, L501.5200 ####[facility] [address] [place], [address] HGB Normal 13.0-16.5 [facility] Comment on above: Result Comment: This specimen has been REJECTED due to Laboratory criteria:Clotted.[email or web address] has been notified of need of recollection.10/27/2426 Hermilo R Law Performed By: #### L 500.3400, L501.2450, L100.0100, L500.2500, L503.6005, L501.5200 ####[facility] [address] [place], [address] MCH Normal 27.0-32.0 [facility] Comment on above: Result Comment: This specimen has been REJECTED due to Laboratory criteria:Clotted.[email or web address] has been notified of need of recollection.10/27/2426 Hermilo R Law Performed By: #### L 500.3400, L501.2450, L100.0100, L500.2500, L503.6005, L501.5200 ####[facility] [address] [place], [address] MCHC Normal 32-36 [facility] Comment on above: Result Comment: This specimen has been REJECTED due to Laboratory criteria:Clotted.[email or web address] has been notified of need of recollection.10/27/2426 Hermilo R Law Performed By: #### L 500.3400, L501.2450, L100.0100, L500.2500, L503.6005, L501.5200 ####[facility] [address] [place], [address] MCV Normal 80-94 [facility] Comment on above: Result Comment: This specimen has been REJECTED due to Laboratory criteria:Clotted.[email or web address] has been notified of need of recollection.10/27/2426 Hermilo R Law Performed By: #### L 500.3400, L501.2450, L100.0100, L500.2500, L503.6005, L501.5200 ####[facility] [address] [place], [address] NEUT% Normal 47-70 [facility] Comment on above: Result Comment: This specimen has been REJECTED due to Laboratory criteria:Clotted.[email or web address] has been notified of need of recollection.10/27/2426 Hermilo R Law Performed By: #### L 500.3400, L501.2450, L100.0100, L500.2500, L503.6005, L501.5200 ####[facility] [address] [place], [address] PLT Normal 150-450 [facility] Comment on above: Result Comment: This specimen has been REJECTED due to Laboratory criteria:Clotted.[email or web address] has been notified of need of recollection.10/27/2426 Hermilo R Law Performed By: #### L 500.3400, L501.2450, L100.0100, L500.2500, L503.6005, L501.5200 ####[facility] [address] [place], [address] RBC Normal 4.6-6.2 [facility] Comment on above: Result Comment: This specimen has been REJECTED due to Laboratory criteria:Clotted.[email or web address] has been notified of need of recollection.10/27/2426 Hermilo R Law Performed By: #### L 500.3400, L501.2450, L100.0100, L500.2500, L503.6005, L501.5200 ####[facility] [address] [place], [address] RDW CV Normal 11.6-14.6 [facility] Comment on above: Result Comment: This specimen has been REJECTED due to Laboratory criteria:Clotted.[email or web address] has been notified of need of recollection.10/27/2426 Hermilo R Law Performed By: #### L 500.3400, L501.2450, L100.0100, L500.2500, L503.6005, L501.5200 ####[facility] [address] [place], [address] RDW SD Normal 35.1-43.9 [facility] Comment on above: Result Comment: This specimen has been REJECTED due to Laboratory criteria:Clotted.[email or web address] has been notified of need of recollection.10/27/2426 Hermilo R Law Performed By: #### L 500.3400, L501.2450, L100.0100, L500.2500, L503.6005, L501.5200 ####[facility] [address] [place], [address] WBC Normal 4.4-11.0 [facility] Comment on above: Result Comment: This specimen has been REJECTED due to Laboratory criteria:Clotted.[email or web address] has been notified of need of recollection.10/27/2426 Hermilo R Law Performed By: #### L 500.3400, L501.2450, L100.0100, L500.2500, L503.6005, L501.5200 ####[facility] [address] [place], [place], [address] CO2 (BldV) [Moles/Vol]Ordere d By: Bronson Tolentino on 10-27-2024 CO2 [Moles/Vol] 29 mmol/L 23-33 [facility] Carbon dioxide, total [Moles /volume] in Central venous bloodOrdered By: Bronson Tolentino on 10-27-2024 CO2 [Moles/Vol] 20.9 mmol/L Low 21.0-32.0 [facility] Chloride assayOrdered By: Aaliyah Tolentino on 10-27-2024 Chloride [Moles/Vol] 98 mmol/L 98-108 [facility] Emergency Department Summary on 10-27-2024 Emergency Department Summary Normal [facility] Eosinophil percentageOrdered By: Magaly Abdi on 10-27-2024 Eosinophils/100 WBC (Bld) 2.2 % 0-5 [facility] Erythrocyte distribution wid th ratioOrdered By: Magaly Abdi on 10-27-2024 Erythrocyte distribution width (RBC) [Ratio] 13.2 % 11.6-14.6 [facility] Erythrocyte distribution wid th standard deviationOrdered By: Magaly Abdi on 10-27-2024 Erythrocyte distribution width (RBC) [Ratio] 46.2 fl High 35.1-43.9 [facility] Glomerular filtration rate ( GFR) estimation/1.73 sq m using serum, plasma, or whole bOrdered By: Bronson Tolentino on 10-27-2024 GFR/1.73 sq M.predicted among non-blacks MDRD (S/P/Bld) [Vol rate/Area] 85 mL/min/{1.73_m2} >60 [facility] Hematocrit Auto (Bld) [Volum e fraction]Ordered By: Magaly Abdi on 10-27-2024 Hematocrit (Bld) [Volume fraction] 41.6 % 40-54 [facility] Hemoglobin measurementOrdere d By: Magaly Abdi on 10-27-2024 Hemoglobin (Bld) [Mass/Vol] 13.3 g/dL 13.0-16.5 [facility] Immature granulocytes/100 WB C Auto (Bld)Ordered By: Magaly Abdi on 10-27-2024 Immature granulocytes/100 WBC (Bld) 0.400 % 0.0-0.9 [facility] Ketones Test strip Ql (U)Ord ered By: Bronson Tolentino on 10-27-2024 Ketones Ql (U) Negative Negative [facility] Lactic Acidon 10-27-2024 Lactate [Moles/Vol] 1.4 mmol/L Normal 0.0-2.0 [facility] Comment on above: Order Comment: Y Performed By: #### L 500.3400, L501.2450, L100.0100, L500.2500, L503.6005, L501.5200 ####[facility] [address] [place], [place], [phone] Lipaseon 10-27-2024 Lipase [Catalytic activity/Vol] 37 U/L Normal 13-75 [facility] Comment on above: Result Comment: Gissell graf note:LIPASE revised reference range effective 22.New Lipase methodology. Expected to produce lower valuesthan the previous assay method.NEW Reference Range: 13 - 75 U/L Performed By: #### L 500.3400, L501.2450, L100.0100, L500.2500, L503.6005, L501.5200 ####[facility] [address] [place], [place], [phone] Liver Profileon 10-27-2024 Albumin [Mass/Vol] 3.5 g/dL Normal 3.4-4.8 [facility] Comment on above: Performed By: #### L 500.3400, L501.2450, L100.0100, L500.2500, L503.6005, L501.5200 ####[facility] [address] [place], [place], [phone] ALK PHOS 97 U/L Normal 40-129 [facility] Comment on above: Performed By: #### L 500.3400, L501.2450, L100.0100, L500.2500, L503.6005, L501.5200 ####[facility] [address] [place], [address] ALT [Catalytic activity/Vol] 23 U/L Normal <=46 [facility] Comment on above: Result Comment: Hemo lysis present, Results??could be affected.?? Performed By: #### L 500.3400, L501.2450, L100.0100, L500.2500, L503.6005, L501.5200 ####[facility] [address] [place], [address] AST [Catalytic activity/Vol] 44 U/L High <=37 [facility] Comment on above: Result Comment: Hemo lysis present, Results??could be affected.?? Performed By: #### L 500.3400, L501.2450, L100.0100, L500.2500, L503.6005, L501.5200 ####[facility] [address] [place], [address] Bilirubin [Mass/Vol] 0.99 mg/dL Normal 0.00-1.30 [facility] Comment on above: Performed By: #### L 500.3400, L501.2450, L100.0100, L500.2500, L503.6005, L501.5200 ####[facility] [address] [place], [address] Bilirubin.direct [Mass/Vol] 0.17 mg/dL Normal 0.00-0.30 [facility] Comment on above: Result Comment: Hemo lysis present, Results??could be affected.?? Performed By: #### L 500.3400, L501.2450, L100.0100, L500.2500, L503.6005, L501.5200 ####[facility] [address] [place], [address] Globulin (S) [Mass/Vol] 3.1 g/dL Normal 2.2-4.2 [facility] Comment on above: Performed By: #### L 500.3400, L501.2450, L100.0100, L500.2500, L503.6005, L501.5200 ####[facility] [address] [place], [place], [phone] T PROT 6.6 g/dL Normal 5.9-8.4 [facility] Comment on above: Performed By: #### L 500.3400, L501.2450, L100.0100, L500.2500, L503.6005, L501.5200 ####[facility] [address] [place], [place], [phone] MCV (mean corpuscular volume ) determinationOrdered By: Magaly Abdi on 10-27-2024 MCV (RBC) [Entitic vol] 94.5 fL High 80-94 [facility] Magnesiumon 10-27-2024 Magnesium [Mass/Vol] 1.7 mg/dL Normal 1.5-2.2 [facility] Comment on above: Performed By: #### L 500.3400, L501.2450, L100.0100, L500.2500, L503.6005, L501.5200 ####[facility] [address] [place], [address] Magnesium measurement (mass/ volume)Ordered By: Bronson Tolentino on 10-27-2024 Magnesium (Unsp spec) [Mass/Vol] 1.7 mg/dL 1.5-2.2 [facility] Mean corpuscular hemoglobin (MCH) determinationOrdered By: Magaly Abdi on 10-27-2024 MCH (RBC) [Entitic mass] 30.2 pg 27.0-32.0 [facility] Monocyte percentageOrdered B y: Magaly Abdi on 10-27-2024 Monocytes/100 WBC (Bld) 4.0 % 0-10 [facility] Mucus LM Ql (Urine sed)Order ed By: Bronson Tolentino on 10-27-2024 Mucus Ql (Urine sed) 0 SEEN /hpf [facility] Neutrophil percentageOrdered By: Magaly Abdi on 10-27-2024 Neutrophils/100 WBC (Bld) 78.9 % High 47-70 [facility] Nitrite Test strip Ql (U)Ord ered By: Bronson Tolentino on 10-27-2024 Nitrite Ql (U) Negative Negative [facility] No Panel InformationOrdered By: Bronson Tolentino on 10-27-2024 NADINE [facility] Not entered [facility] 44 U/L High <38 [facility] Platelet countOrdered By: Debra Abdi on 10-27-2024 Platelets (Bld) [#/Vol] 245 10*3/uL 150-450 [facility] Potassium measurement (mass/ volume)Ordered By: Bronson Tolentino on 10-27-2024 Potassium (Unsp spec) [Mass/Vol] 4.2 mmol/L 3.3-5.1 [facility] Protein Test strip Ql (U)Ord ered By: Bronson Tolentino on 10-27-2024 Protein Ql (U) 30 mg/dl High Negative [facility] RBC Auto (Bld) [#/Vol]Ordere d By: Magaly Abdi on 10-27-2024 RBC (Bld) [#/Vol] 4.40 10*6/uL Low 4.6-6.2 [facility] Serum creatinine measurement (mass/volume)Ordered By: Bronson Tolentino on 10-27-2024 Creatinine [Mass/Vol] 0.99 mg/dL 0.70-1.20 [facility] Serum globulin measurementOr dered By: Bronson Tolentino on 10-27-2024 Globulin (S) [Mass/Vol] 3.1 g/dL 2.2-4.2 [facility] Serum glucose measurement (m ass/volume)Ordered By: Bronson Tolentino on 10-27-2024 Glucose [Mass/Vol] 203 mg/dL High 70-99 [facility] Serum or plasma alanine martino otransferase (ALT) measurementOrdered By: Bronson Tolentino on 10-27-2024 ALT [Catalytic activity/Vol] 23 U/L <47 [facility] Serum or plasma albumin brenda urement (mass/volume)Ordered By: Bronson Tolentino on 10-27-2024 Albumin [Mass/Vol] 3.5 g/dL 3.4-4.8 [facility] Serum or plasma alkaline yulia sphatase measurementOrdered By: Bronson Tolentino on 10-27-2024 ALP [Catalytic activity/Vol] 97 U/L 40-129 [facility] Serum or plasma calcium brenda urement (mass/volume)Ordered By: Bronson Tolentino on 10-27-2024 Calcium [Mass/Vol] 8.8 mg/dL 7.6-11.0 [facility] Serum or plasma urea nitroge n measurement (mass/volume)Ordered By: Bronson Tolentino on 10-27-2024 Urea nitrogen [Mass/Vol] 18 mg/dL 4-19 [facility] Sodium levelOrdered By: Roberto Tolentino on 10-27-2024 Sodium [Moles/Vol] 132 mmol/L Low 133-145 [facility] Squamous epithelial cells de tection in urine sediment by light microscopyOrdered By: Bronson Tolentino on 10-27-2024 Epithelial cells.squamous LM Ql (Urine sed) 0 SEEN /hpf 0-5 [facility] Total proteinOrdered By: Renato Tolentino on 10-27-2024 Protein [Mass/Vol] 6.6 g/dL 5.9-8.4 [facility] Urinalysis, Completeon 10-27 WBC 0-5 SEEN Normal 0-5 [facility] Comment on above: Order Comment: ARINA CTOR TO SPECIFY Performed By: #### L 400.0001 ####[facility] [address] [place], [place], [phone] BACTERIA 0 SEEN Normal None Seen [facility] Comment on above: Order Comment: ARINA CTOR TO SPECIFY Performed By: #### L 400.0001 ####[facility] [address] [place], [place], [phone] EPI,SQUAMOUS 0 SEEN Normal 0-5 [facility] Comment on above: Order Comment: ARINA CTOR TO SPECIFY Performed By: #### L 400.0001 ####[facility] [address] [place], [place], [address] Mucus Ql (Urine sed) 0 SEEN Normal [facility] Comment on above: Order Comment: ARINA CTOR TO SPECIFY Performed By: #### L 400.0001 ####[facility] [address] [place], [place], [address] RBC 0 SEEN Normal 0-5 [facility] Comment on above: Order Comment: ARINA CTOR TO SPECIFY Performed By: #### L 400.0001 ####[facility] [address] [place], [place], [id number] Urine clarityOrdered By: Renato Tolentino on 10-27-2024 Clarity (U) Clear Clear [facility] Urine color determinationOrd ered By: Bronson Tolentino on 10-27-2024 Color (U) Yellow Yellow [facility] Urine glucose detectionOrder ed By: Bronson Tolentino on 10-27-2024 Glucose Ql (U) 50 mg/dl High Normal [facility] Urine leukocyte esterase det ection by dipstickOrdered By: Bronson Tolentino on 10-27-2024 Leukocyte esterase Test strip Ql (U) 100 /ul High Negative [facility] Urine pHOrdered By: Bronson lopez on 10-27-2024 pH (U) 6.0 [pH] 5.0 - 8.0 [facility] Urine sediment bacteria coun t by microscopy (number/high power field)Ordered By: Bronson Tolentino on 10-27-2024 Bacteria LM.HPF (Urine sed) [#/Area] 0 /[HPF] None Seen [facility] Urine specific gravity measu rementOrdered By: Bronson Tolentino on 10-27-2024 Specific gravity (U) [Rel density] 1.020 1.002-1.030 [facility] Urine urobilinogen measureme ntOrdered By: Bronson Tolentino on 10-27-2024 Urobilinogen Ql (U) 1 mg/dl High Normal [facility] Venous Blood Gason Blood Gas Type NADINE Normal [facility] Comment on above: Performed By: #### L 9000.0810 ####[facility] [address] [place], [address] CO2 [Moles/Vol] 29 mmol/L Normal 23-33 [facility] Comment on above: Performed By: #### L 9000.0810 ####[facility] [address] [place], [address] HCO3 (Bld) [Moles/Vol] 28 mmol/L High 22-26 [facility] Comment on above: Performed By: #### L 9000.0810 ####[facility] [address] [place], [address] O2 Delivery Dev Not entered Normal [facility] Comment on above: Performed By: #### L 9000.0810 ####[facility] [address] [place], [address] SITE Not entered Normal [facility] Comment on above: Performed By: #### L 9000.0810 ####[facility] [address] [place], [address] VBG BE 3 mmol/L Normal -1.0-3.5 [facility] Comment on above: Performed By: #### L 9000.0810 ####[facility] [address] [place], [address] VBG pCO2 41.9 mmHg Normal 41-51 [facility] Comment on above: Performed By: #### L 9000.0810 ####[facility] [address] [place], [address] VBG pH 7.43 High 7.32-7.42 [facility] Comment on above: Performed By: #### L 9000.0810 ####[facility] [address] [place], [address] VBG PO2 30 mmHg Normal 25-40 [facility] Comment on above: Performed By: #### L 9000.0810 ####[facility] [address] [place], [address] VBG SO2 59 Normal 50-70 [facility] System Comment on above: Performed By: #### L 9000.0810 ####[facility] [address] [place], [address] Blood Gas Type NADINE Normal [facility] Comment on above: Performed By: #### L 9000.0810 ####[facility] [address] [place], [address] CO2 [Moles/Vol] 22 mmol/L Low 23-33 [facility] Comment on above: Performed By: #### L 9000.0810 ####[facility] [address] [place], [address] HCO3 (Bld) [Moles/Vol] 21 mmol/L Low 22-26 [facility] Comment on above: Performed By: #### L 9000.0810 ####[facility] [address] [place], [address] O2 Delivery Dev Not entered [facility] Comment on above: Performed By: #### L 9000.0810 ####[facility] [address] [place], [address] SITE Not entered Normal [facility] Comment on above: Performed By: #### L 9000.0810 ####[facility] [address] [place], [address] VBG BE -1 mmol/L Normal -1.0-3.5 [facility] Comment on above: Performed By: #### L 9000.0810 ####[facility] [address] [place], [address] VBG pCO2 23.3 mmHg Low 41-51 [facility] Comment on above: Performed By: #### L 9000.0810 ####[facility] [address] [place], [place], [address] VBG pH 7.57 High 7.32-7.42 [facility] Comment on above: Performed By: #### L 9000.0810 ####[facility] [address] [place], [address] VBG PO2 224 mmHg High 25-40 [facility] Comment on above: Performed By: #### L 9000.0810 ####[facility] [address] [place], [address] VBG SO2 100 High 50-70 [facility] Comment on above: Performed By: #### L 9000.0810 ####[facility] [address] [place], [place], [address] Venous blood base excess asia surementOrdered By: Bronson Tolentino on 10-27-2024 Base excess Calc (BldV) [Moles/Vol] 3 mmol/L -1.0-3.5 [facility] Venous blood bicarbonate asia surementOrdered By: Bronson Tolentino on 10-27-2024 HCO3 (Bld) [Moles/Vol] 28 mmol/L High 22-26 [facility] Venous blood pH measurementO rdered By: Bronson Tolentino on 10-27-2024 pH (BldV) 7.43 [pH] High 7.32-7.42 [facility] Venous blood partial pressur e of carbon dioxide measurementOrdered By: Bronson Tolentino on 10-27-2024 CO2 (BldV) [Partial pressure] 41.9 mm[Hg] 41-51 [facility] Venous blood partial pressur e of oxygen measurementOrdered By: Bronson Tolentino on 10-27-2024 Oxygen (BldV) [Partial pressure] 30 mm[Hg] 25-40 [facility] White blood cell (WBC) count Ordered By: Magaly Abdi on 10-27-2024 WBC (Bld) [#/Vol] 6.7 10*3/uL 4.4-11.0 [facility] White blood cell countOrdere d By: Bronson Tolentino on 10-27-2024 White blood cell count 0-5 SEEN /hpf 0-5 [facility] Bedside Glucoseon 10-26-2024 FINGERSTICK GLU 194 mg/dL High 74-106 [facility] Comment on above: Result Comment: SNEHA DUNCAN OF PATIENT CARE PER NURSING PROTOCOL Performed By: #### L 501.080 ####[facility] [address] [place], [address] Chest PA and Lateralon 10-26 Chest PA and Lateral Normal [facility] By: Bronson Tolentino on 10-26-2024 Glucose [Mass/Vol] 194 mg/dL High 74-106 [facility] Absolute lymphocyte countOrd ered By: Devin Curry on 10-23-2024 Lymphocytes Auto (Unsp spec) [#/Vol] 1.48 10*3/uL 0.83-4.51 [facility] Anion gap in Serum or Plasma Ordered By: Devin Curry on 10-23-2024 Anion gap [Moles/Vol] 12 mmol/L 5-15 [facility] Automated lymphocyte count a s percentage of total leukocytesOrdered By: Devin Curry on 10-23-2024 Lymphocytes/100 WBC Auto (Unsp spec) 21.6 % 19-41 [facility] BUN/creatinine ratioOrdered By: Devin Curry on 10-23-2024 Urea nitrogen/Creatinine [Mass ratio] 18.2 mg/mg 10- [facility] Basic Metabolic Profile (BMP )on 10-23-2024 BUN/CRE 18.2 RATIO Normal - [facility] Comment on above: Performed By: #### L 100.0100, L500.2500 ####[facility] [address] [place], [address] Calcium [Mass/Vol] 9.3 mg/dL Normal 7.6-11.0 [facility] Comment on above: Performed By: #### L 100.0100, L500.2500 ####[facility] [address] [place], [address] Chloride [Moles/Vol] 100 mmol/L Normal 98-108 [facility] Comment on above: Performed By: #### L 100.0100, L500.2500 ####[facility] [address] [place], [address] CO2 [Moles/Vol] 26.0 mmol/L Normal 21.0-32.0 [facility] Comment on above: Performed By: #### L 100.0100, L500.2500 ####[facility] [address] [place], [address] Creatinine [Mass/Vol] 1.00 mg/dL Normal 0.70-1.20 [facility] Comment on above: Performed By: #### L 100.0100, L500.2500 ####[facility] [address] [place], [address] ECRCL 89.11 ml/min Normal 50-250 [facility] Comment on above: Performed By: #### L 100.0100, L500.2500 ####[facility] [address] [place], [address] GAP 12 Normal 5-15 [facility] Comment on above: Performed By: #### L 100.0100, L500.2500 ####[facility] [address] [place], [address] GFR/1.73 sq M.predicted among non-blacks MDRD (S/P/Bld) [Vol rate/Area] 84 mL/min/{1.73_m2} Normal >60 [facility] Comment on above: Result Comment: mL/m in/1.73m2 CKD-EPI Creatinine Equation (2020) Performed By: #### L 100.0100, L500.2500 ####[facility] [address] [place], [address] Glucose [Mass/Vol] 256 mg/dL High 70-99 [facility] Comment on above: Performed By: #### L 100.0100, L500.2500 ####[facility] [address] [place], [address] Potassium [Moles/Vol] 3.9 mmol/L Normal 3.3-5.1 [facility] Comment on above: Performed By: #### L 100.0100, L500.2500 ####[facility] [address] [place], [address] Sodium [Moles/Vol] 138 mmol/L Normal 133-145 [facility] Comment on above: Performed By: #### L 100.0100, L500.2500 ####[facility] [address] [place], [address] Urea nitrogen [Mass/Vol] 18 mg/dL Normal 4-19 [facility] Comment on above: Performed By: #### L 100.0100, L500.2500 ####[facility] [address] [place], [address] Basophil percentageOrdered B y: Devin Curry on 10-23-2024 Basophils/100 WBC (Bld) 0.3 % 0-1 [facility] CBC W/Diff, Automatedon 10-05 Absolute Lymph 1.48 X10 3/uL Normal 0.83-4.51 [facility] Comment on above: Performed By: #### L 100.0100, L500.2500 ####[facility] [address] [place], [address] Absolute Neut 4.7 X10 3/uL Normal 2.0-7.7 [facility] Comment on above: Performed By: #### L 100.0100, L500.2500 ####[facility] [address] [place], [address] Basophils/100 WBC (Bld) 0.3 % Normal 0-1 [facility] Comment on above: Performed By: #### L 100.0100, L500.2500 ####[facility] [address] [place], [address] Eosinophils/100 WBC (Bld) 3.4 % Normal 0-5 [facility] Comment on above: Performed By: #### L 100.0100, L500.2500 ####[facility] [address] [place], [address] Erythrocyte distribution width (RBC) [Ratio] 12.8 % Normal 11.6-14.6 [facility] Comment on above: Performed By: #### L 100.0100, L500.2500 ####[facility] [address] [place], [address] Hematocrit (Bld) [Volume fraction] 42.4 % Normal 40-54 [facility] Comment on above: Performed By: #### L 100.0100, L500.2500 ####[facility] [address] [place], [address] Hemoglobin (Bld) [Mass/Vol] 14.0 g/dL Normal 13.0-16.5 [facility] Comment on above: Performed By: #### L 100.0100, L500.2500 ####[facility] [address] [place], [address] IG% 0.100 Normal 0.0-0.9 [facility] Comment on above: Result Comment: IG% - Immature Granulocytes (promyelocytes, myelocytes andmetamyelocytes) > 1% indicates that a LEFT SHIFT is Present. Performed By: #### L 100.0100, L500.2500 ####[facility] [address] [place], [address] Lymphocytes/100 WBC (Bld) 21.6 % Normal 19-41 [facility] Comment on above: Performed By: #### L 100.0100, L500.2500 ####[facility] [address] [place], [address] MCH (RBC) [Entitic mass] 30.8 pg Normal 27.0-32.0 [facility] Comment on above: Performed By: #### L 100.0100, L500.2500 ####[facility] [address] [place], [address] MCHC (RBC) [Mass/Vol] 33.0 g/dL Normal 32-36 [facility] Comment on above: Performed By: #### L 100.0100, L500.2500 ####[facility] [address] [place], [address] MCV (RBC) [Entitic vol] 93.2 fL Normal 80-94 [facility] Comment on above: Performed By: #### L 100.0100, L500.2500 ####[facility] [address] [place], [address] Monocytes/100 WBC (Bld) 6.1 % Normal 0-10 [facility] Comment on above: Performed By: #### L 100.0100, L500.2500 ####[facility] [address] [place], [address] Neutrophils/100 WBC (Bld) 68.5 % Normal 47-70 [facility] Comment on above: Performed By: #### L 100.0100, L500.2500 ####[facility] [address] [place], [address] Nucleated RBC (Bld) [#/Vol] 0 10*3/uL Normal 0-5 [facility] Comment on above: Performed By: #### L 100.0100, L500.2500 ####[facility] [address] [place], [address] Platelet mean volume (Bld) [Entitic vol] 10.0 fL Normal 6.2-12.0 [facility] Comment on above: Performed By: #### L 100.0100, L500.2500 ####[facility] [address] [place], [address] Platelets (Bld) [#/Vol] 255 10*3/uL Normal 150-450 [facility] Comment on above: Performed By: #### L 100.0100, L500.2500 ####[facility] [address] [place], [address] RBC (Bld) [#/Vol] 4.55 10*6/uL Low 4.6-6.2 [facility] Comment on above: Performed By: #### L 100.0100, L500.2500 ####[facility] [address] [place], [address] RDW SD 43.9 fl Normal 35.1-43.9 [facility] Comment on above: Performed By: #### L 100.0100, L500.2500 ####[facility] [address] [place], [address] WBC (Bld) [#/Vol] 6.9 10*3/uL Normal 4.4-11.0 [facility] Comment on above: Performed By: #### L 100.0100, L500.2500 ####[facility] [address] [place], [address] Carbon dioxide, total [Moles /volume] in Central venous bloodOrdered By: Devin Curry on 10-23-2024 CO2 [Moles/Vol] 26.0 mmol/L 21.0-32.0 [facility] Chloride assayOrdered By: Davian Curry on 10-23-2024 Chloride [Moles/Vol] 100 mmol/L 98-108 [facility] Emergency Department Summary on 10-23-2024 Emergency Department Summary Normal [facility] Eosinophil percentageOrdered By: Devin Curry on 10-23-2024 Eosinophils/100 WBC (Bld) 3.4 % 0-5 [facility] Erythrocyte distribution wid th ratioOrdered By: Devin Curry on 10-23-2024 Erythrocyte distribution width (RBC) [Ratio] 12.8 % 11.6-14.6 [facility] Erythrocyte distribution wid th standard deviationOrdered By: Devin Curry on 10-23-2024 Erythrocyte distribution width (RBC) [Ratio] 43.9 fl 35.1-43.9 [facility] Glomerular filtration rate ( GFR) estimation/1.73 sq m using serum, plasma, or whole bOrdered By: Devin Curry on 10-23-2024 GFR/1.73 sq M.predicted among non-blacks MDRD (S/P/Bld) [Vol rate/Area] 84 mL/min/{1.73_m2} >60 [facility] Hematocrit Auto (Bld) [Volum e fraction]Ordered By: Devin Curry on 10-23-2024 Hematocrit (Bld) [Volume fraction] 42.4 % 40-54 [facility] Hemoglobin measurementOrdere d By: Devin Curry on 10-23-2024 Hemoglobin (Bld) [Mass/Vol] 14.0 g/dL 13.0-16.5 [facility] Immature granulocytes/100 WB C Auto (Bld)Ordered By: Devin Curry on 10-23-2024 Immature granulocytes/100 WBC (Bld) 0.100 % 0.0-0.9 [facility] MCV (mean corpuscular volume ) determinationOrdered By: Devin Curry on 10-23-2024 MCV (RBC) [Entitic vol] 93.2 fL 80-94 [facility] Mean corpuscular hemoglobin (MCH) determinationOrdered By: Devin Curry on 10-23-2024 MCH (RBC) [Entitic mass] 30.8 pg 27.0-32.0 [facility] Monocyte percentageOrdered B y: Devin Curry on 10-23-2024 Monocytes/100 WBC (Bld) 6.1 % 0-10 [facility] Neutrophil percentageOrdered By: Devin Curry on 10-23-2024 Neutrophils/100 WBC (Bld) 68.5 % 47-70 [facility] Platelet countOrdered By: Davian Curry on 10-23-2024 Platelets (Bld) [#/Vol] 255 10*3/uL 150-450 [facility] Potassium measurement (mass/ volume)Ordered By: Devin Curry on 10-23-2024 Potassium (Unsp spec) [Mass/Vol] 3.9 mmol/L 3.3-5.1 [facility] RBC Auto (Bld) [#/Vol]Ordere d By: Devin Curry on 10-23-2024 RBC (Bld) [#/Vol] 4.55 10*6/uL Low 4.6-6.2 [facility] Serum creatinine measurement (mass/volume)Ordered By: Devin Curry on 10-23-2024 Creatinine [Mass/Vol] 1.00 mg/dL 0.70-1.20 [facility] Serum glucose measurement (m ass/volume)Ordered By: Devin Curry on 10-23-2024 Glucose [Mass/Vol] 256 mg/dL High 70-99 [facility] Serum or plasma calcium brenda urement (mass/volume)Ordered By: Devin Curry on 10-23-2024 Calcium [Mass/Vol] 9.3 mg/dL 7.6-11.0 [facility] Serum or plasma urea nitroge n measurement (mass/volume)Ordered By: Devin Curry on 10-23-2024 Urea nitrogen [Mass/Vol] 18 mg/dL 4-19 [facility] Sodium levelOrdered By: Devin Curry on 10-23-2024 Sodium [Moles/Vol] 138 mmol/L 133-145 [facility] White blood cell (WBC) count Ordered By: Devin Curry on 10-23-2024 WBC (Bld) [#/Vol] 6.9 10*3/uL 4.4-11.0 [facility] Emergency Department Summary on 10-21-2024 Emergency Department Summary Normal [facility] Absolute lymphocyte countOrd ered By: Valentín Miller on 10-19-2024 Lymphocytes Auto (Unsp spec) [#/Vol] 1.65 10*3/uL 0.83-4.51 [facility] Anion gap in Serum or Plasma Ordered By: Valentín Miller on 10-19-2024 Anion gap [Moles/Vol] 13 mmol/L 5-15 [facility] Automated lymphocyte count a s percentage of total leukocytesOrdered By: Valentín Miller on 10-19-2024 Lymphocytes/100 WBC Auto (Unsp spec) 24.7 % - [facility] BUN/creatinine ratioOrdered By: Valentín Miller on 10-19-2024 Urea nitrogen/Creatinine [Mass ratio] 16.0 mg/mg 10- [facility] Basic Metabolic Profile (BMP )on 10-19-2024 BUN/CRE 16.0 RATIO Normal - [facility] Comment on above: Performed By: #### L 503.7505, L501.4021, L100.0100, L500.2500 ####[facility] [address] [place], [address] Calcium [Mass/Vol] 9.2 mg/dL Normal 7.6-11.0 [facility] Comment on above: Performed By: #### L 503.7505, L501.4021, L100.0100, L500.2500 ####[facility] [address] [place], [address] Chloride [Moles/Vol] 98 mmol/L Normal 98-108 [facility] Comment on above: Performed By: #### L 503.7505, L501.4021, L100.0100, L500.2500 ####[facility] [address] [place], [address] CO2 [Moles/Vol] 22.6 mmol/L Normal 21.0-32.0 [facility] Comment on above: Performed By: #### L 503.7505, L501.4021, L100.0100, L500.2500 ####[facility] [address] [place], [address] Creatinine [Mass/Vol] 1.19 mg/dL Normal 0.70-1.20 [facility] Comment on above: Performed By: #### L 503.7505, L501.4021, L100.0100, L500.2500 ####[facility] [address] [place], [address] ECRCL 66.79 ml/min Normal 50-250 [facility] Comment on above: Performed By: #### L 503.7505, L501.4021, L100.0100, L500.2500 ####[facility] [address] [place], [address] GAP 13 Normal 5-15 [facility] Comment on above: Performed By: #### L 503.7505, L501.4021, L100.0100, L500.2500 ####[facility] [address] [place], [address] GFR/1.73 sq M.predicted among non-blacks MDRD (S/P/Bld) [Vol rate/Area] 68 mL/min/{1.73_m2} Normal >60 [facility] Comment on above: Result Comment: mL/m in/1.73m2 CKD-EPI Creatinine Equation (2020) Performed By: #### L 503.7505, L501.4021, L100.0100, L500.2500 ####[facility] [address] [place], [address] Glucose [Mass/Vol] 343 mg/dL High 70-99 [facility] Comment on above: Performed By: #### L 503.7505, L501.4021, L100.0100, L500.2500 ####[facility] [address] [place], [address] Potassium [Moles/Vol] 5.5 mmol/L High 3.3-5.1 [facility] Comment on above: Result Comment: Hemo lysis present, Results??could be affected.??Hemolysis present, Results??could be affected.?? Performed By: #### L 503.7505, L501.4021, L100.0100, L500.2500 ####[facility] [address] [place], [address] Sodium [Moles/Vol] 133 mmol/L Normal 133-145 [facility] Comment on above: Performed By: #### L 503.7505, L501.4021, L100.0100, L500.2500 ####[facility] [address] [place], [address] Urea nitrogen [Mass/Vol] 19 mg/dL Normal 4-19 [facility] Comment on above: Performed By: #### L 503.7505, L501.4021, L100.0100, L500.2500 ####[facility] [address] [place], [address] Basophil percentageOrdered B y: Valentín Paul on 10-19-2024 Basophils/100 WBC (Bld) 0.3 % 0-1 [facility] CBC W/Diff, Automatedon 10-04 Absolute Lymph 1.65 X10 3/uL Normal 0.83-4.51 [facility] Comment on above: Performed By: #### L 503.7505, L501.4021, L100.0100, L500.2500 ####[facility] [address] [place], [address] Absolute Neut 4.4 X10 3/uL Normal 2.0-7.7 [facility] Comment on above: Performed By: #### L 503.7505, L501.4021, L100.0100, L500.2500 ####[facility] [address] [place], [address] Basophils/100 WBC (Bld) 0.3 % Normal 0-1 [facility] Comment on above: Performed By: #### L 503.7505, L501.4021, L100.0100, L500.2500 ####[facility] [address] [place], [address] Eosinophils/100 WBC (Bld) 3.1 % Normal 0-5 [facility] Comment on above: Performed By: #### L 503.7505, L501.4021, L100.0100, L500.2500 ####[facility] [address] [place], [address] Erythrocyte distribution width (RBC) [Ratio] 12.6 % Normal 11.6-14.6 [facility] Comment on above: Performed By: #### L 503.7505, L501.4021, L100.0100, L500.2500 ####[facility] [address] [place], [address] Hematocrit (Bld) [Volume fraction] 40.7 % Normal 40-54 [facility] Comment on above: Performed By: #### L 503.7505, L501.4021, L100.0100, L500.2500 ####[facility] [address] [place], [address] Hemoglobin (Bld) [Mass/Vol] 13.7 g/dL Normal 13.0-16.5 [facility] Comment on above: Performed By: #### L 503.7505, L501.4021, L100.0100, L500.2500 ####[facility] [address] [place], [address] IG% 0.100 Normal 0.0-0.9 [facility] Comment on above: Result Comment: IG% - Immature Granulocytes (promyelocytes, myelocytes andmetamyelocytes) > 1% indicates that a LEFT SHIFT is Present. Performed By: #### L 503.7505, L501.4021, L100.0100, L500.2500 ####[facility] [address] [place], [address] Lymphocytes/100 WBC (Bld) 24.7 % Normal 19-41 [facility] Comment on above: Performed By: #### L 503.7505, L501.4021, L100.0100, L500.2500 ####[facility] [address] [place], [address] MCH (RBC) [Entitic mass] 31.2 pg Normal 27.0-32.0 [facility] Comment on above: Performed By: #### L 503.7505, L501.4021, L100.0100, L500.2500 ####[facility] [address] [place], [address] MCHC (RBC) [Mass/Vol] 33.7 g/dL Normal 32-36 [facility] Comment on above: Performed By: #### L 503.7505, L501.4021, L100.0100, L500.2500 ####[facility] [address] [place], [address] MCV (RBC) [Entitic vol] 92.7 fL Normal 80-94 [facility] Comment on above: Performed By: #### L 503.7505, L501.4021, L100.0100, L500.2500 ####[facility] [address] [place], [address] Monocytes/100 WBC (Bld) 6.1 % Normal 0-10 [facility] Comment on above: Performed By: #### L 503.7505, L501.4021, L100.0100, L500.2500 ####[facility] [address] [place], [address] Neutrophils/100 WBC (Bld) 65.7 % Normal 47-70 [facility] Comment on above: Performed By: #### L 503.7505, L501.4021, L100.0100, L500.2500 ####[facility] [address] [place], [address] Nucleated RBC (Bld) [#/Vol] 0 10*3/uL Normal 0-5 [facility] Comment on above: Performed By: #### L 503.7505, L501.4021, L100.0100, L500.2500 ####[facility] [address] [place], [address] Platelet mean volume (Bld) [Entitic vol] 10.0 fL Normal 6.2-12.0 [facility] Comment on above: Performed By: #### L 503.7505, L501.4021, L100.0100, L500.2500 ####[facility] [address] [place], [address] Platelets (Bld) [#/Vol] 241 10*3/uL Normal 150-450 [facility] Comment on above: Performed By: #### L 503.7505, L501.4021, L100.0100, L500.2500 ####[facility] [address] [place], [address] RBC (Bld) [#/Vol] 4.39 10*6/uL Low 4.6-6.2 [facility] Comment on above: Performed By: #### L 503.7505, L501.4021, L100.0100, L500.2500 ####[facility] [address] [place], [address] RDW SD 43.1 fl Normal 35.1-43.9 [facility] Comment on above: Performed By: #### L 503.7505, L501.4021, L100.0100, L500.2500 ####[facility] [address] [place], [address] WBC (Bld) [#/Vol] 6.7 10*3/uL Normal 4.4-11.0 [facility] Comment on above: Performed By: #### L 503.7505, L501.4021, L100.0100, L500.2500 ####[facility] [address] [place], [address] Carbon dioxide, total [Moles /volume] in Central venous bloodOrdered By: Valentín Miller on 10-19-2024 CO2 [Moles/Vol] 22.6 mmol/L 21.0-32.0 [facility] Chest 1 View (Portable)on Chest 1 View (Portable) Normal [facility] Chloride assayOrdered By: wil Miller on 10-19-2024 Chloride [Moles/Vol] 98 mmol/L 98-108 [facility] Emergency Department Summary on 10-19-2024 Emergency Department Summary Normal [facility] Eosinophil percentageOrdered By: Valentín Miller on 10-19-2024 Eosinophils/100 WBC (Bld) 3.1 % 0-5 [facility] Erythrocyte distribution wid th ratioOrdered By: Valentín Miller on 10-19-2024 Erythrocyte distribution width (RBC) [Ratio] 12.6 % 11.6-14.6 [facility] Erythrocyte distribution wid th standard deviationOrdered By: Valentín Miller on 10-19-2024 Erythrocyte distribution width (RBC) [Ratio] 43.1 fl 35.1-43.9 [facility] Glomerular filtration rate ( GFR) estimation/1.73 sq m using serum, plasma, or whole bOrdered By: Valentín Miller on 10-19-2024 GFR/1.73 sq M.predicted among non-blacks MDRD (S/P/Bld) [Vol rate/Area] 68 mL/min/{1.73_m2} >60 [facility] Hematocrit Auto (Bld) [Volum e fraction]Ordered By: Valentín Miller on 10-19-2024 Hematocrit (Bld) [Volume fraction] 40.7 % 40-54 [facility] Hemoglobin measurementOrdere d By: Valentín Miller on 10-19-2024 Hemoglobin (Bld) [Mass/Vol] 13.7 g/dL 13.0-16.5 [facility] Immature granulocytes/100 WB C Auto (Bld)Ordered By: Valentín Miller on 10-19-2024 Immature granulocytes/100 WBC (Bld) 0.100 % 0.0-0.9 [facility] Influenza virus A and B and SARS-CoV-2 (COVID-19) and Respiratory syncytial virus RNAOrdered By: Valentín Miller on 10-19-2024 SARS-CoV-2 (COVID-19) RNA HAYDER+probe Ql (Unsp spec) [facility] L499.0042on 10-19-2024 Trop T High Sen 27 ng/L High <=22 [facility] Comment on above: Performed By: #### L 499.0042 ####[facility] [address] [place], [address] L499.0043on 10-19-2024 Trop T High Sen 26 ng/L High <=22 [facility] Comment on above: Performed By: #### L 499.0043 ####[facility] [address] [place], [address] L501.4021on 10-19-2024 Trop T High Sen 25 ng/L High <=22 [facility] Comment on above: Result Comment: Hemo lysis present, Results??could be affected.??Hemolysis present, Results??could be affected.?? Performed By: #### L 503.7505, L501.4021, L100.0100, L500.2500 ####[facility] [address] [place], [address] L503.7505on 10-19-2024 Natriuretic peptide B (Bld) [Mass/Vol] 4100 pg/mL High <=900 [facility] Comment on above: Result Comment: Hear t Failure Unlikely: < 300 pg/mLHeart Failure Likely< 50 Years: > 450 pg/mL50-75 Years: > 900 pg/mL>75 Years: > 1800 pg/mL Performed By: #### L 503.7505, L501.4021, L100.0100, L500.2500 ####[facility] [address] [place], [address] M100.678on 10-19-2024 M100.678 Pending SARS-CoV-2 (COVID 19) Negative INFLUENZA A Negative INFLUENZA B Negative RSV PCR Negative Normal [facility] Comment on above: Performed By: #### M [id number] ####[facility] [address] [place], [address] MCV (mean corpuscular volume ) determinationOrdered By: Valentín Miller on 10-19-2024 MCV (RBC) [Entitic vol] 92.7 fL 80-94 [facility] Mean corpuscular hemoglobin (MCH) determinationOrdered By: Valentín Miller on 10-19-2024 MCH (RBC) [Entitic mass] 31.2 pg 27.0-32.0 [facility] Monocyte percentageOrdered B y: Valentín Miller on 10-19-2024 Monocytes/100 WBC (Bld) 6.1 % 0-10 [facility] Natriuretic peptide.B prohor parris N-Terminal [Mass/volume] in Serum or PlasmaOrdered By: Valentín Miller on 10-19-2024 Natriuretic peptide.B prohormone N-Terminal [Mass/Vol] 4100 pg/mL High <900 [facility] Neutrophil percentageOrdered By: Valentín Miller on 10-19-2024 Neutrophils/100 WBC (Bld) 65.7 % 47-70 [facility] Platelet countOrdered By: Ana Miller on 10-19-2024 Platelets (Bld) [#/Vol] 241 10*3/uL 150-450 [facility] Potassium measurement (mass/ volume)Ordered By: Valentín Miller on 10-19-2024 Potassium (Unsp spec) [Mass/Vol] 5.5 mmol/L High 3.3-5.1 [facility] RBC Auto (Bld) [#/Vol]Ordere d By: Valentín Miller on 10-19-2024 RBC (Bld) [#/Vol] 4.39 10*6/uL Low 4.6-6.2 [facility] Serum creatinine measurement (mass/volume)Ordered By: Valentín Miller on 10-19-2024 Creatinine [Mass/Vol] 1.19 mg/dL 0.70-1.20 [facility] Serum glucose measurement (m ass/volume)Ordered By: Valentín Miller on 10-19-2024 Glucose [Mass/Vol] 343 mg/dL High 70-99 [facility] Serum or plasma calcium brenda urement (mass/volume)Ordered By: Valentín Miller on 10-19-2024 Calcium [Mass/Vol] 9.2 mg/dL 7.6-11.0 [facility] Serum or plasma urea nitroge n measurement (mass/volume)Ordered By: Valentín Miller on 10-19-2024 Urea nitrogen [Mass/Vol] 19 mg/dL 4-19 [facility] Sodium levelOrdered By: Uli Miller on 10-19-2024 Sodium [Moles/Vol] 133 mmol/L 133-145 [facility] Troponin T.cardiac [Mass/vol ume] in Serum or Plasma by High sensitivity methodOrdered By: Valentín Miller on 10-19-2024 Troponin T.cardiac High sensitivity method [Mass/Vol] 26 ng/L High <22 [facility] Troponin T.cardiac High sensitivity method [Mass/Vol] 27 ng/L High <22 [facility] Troponin T.cardiac High sensitivity method [Mass/Vol] 25 ng/L High <22 [facility] White blood cell (WBC) count Ordered By: Valentín Miller on 10-19-2024 WBC (Bld) [#/Vol] 6.7 10*3/uL 4.4-11.0 [facility] Cardiology Visit Reporton Cardiology Visit Report Normal [facility] Bedside Glucoseon 09-21-2024 FINGERSTICK GLU 223 mg/dL High 74-106 [facility] Comment on above: Result Comment: SNEHA GEMENT OF PATIENT CARE PER NURSING PROTOCOL Performed By: #### L 501.080 ####[facility] [address] [place], [address] FINGERSTICK GLU 197 mg/dL High 74-106 [facility] Comment on above: Result Comment: SNEHA GEMENT OF PATIENT CARE PER NURSING PROTOCOL Performed By: #### L 501.080 ####[facility] [address] [place], [place], [id number] FINGERSTICK GLU 163 mg/dL High 74-106 [facility] Comment on above: Result Comment: SNEHA DUNCAN OF PATIENT CARE PER NURSING PROTOCOL Performed By: #### L 501.080 ####[facility] [address] [place], [place], [id number] Calculated very low density lipoprotein (VLDL) cholesterol measurementOrdered By: Seth Carrington on 09-21-2024 Calculated very low density lipoprotein (VLDL) cholesterol measurement 31 mg/dL 5-40 [facility] Discharge Instructionon 09-04 Discharge Instruction Normal [facility] deOrdered By: Donna Wolff on 09-21-2024 Glucose [Mass/Vol] 223 mg/dL High 74-106 [facility] LDL calc ser/plasOrdered By: Seth Carrington on 09-21-2024 Cholesterol in LDL [Mass/Vol] 18 mg/dL [facility] Lipid Profileon 09-21-2024 CHOL:HDL 2.11 Normal [facility] Comment on above: Performed By: #### L 500.4100 ####[facility] [address] [place], [place], [id number] Cholesterol [Mass/Vol] 93 mg/dL Normal <=200 [facility] Comment on above: Result Comment: Chol esterol level, Desirable <200 mg/dLBorderline high cholesterol 200-239 mg/dLHigh cholesterol >=240 mg/dLRecommendations of the NCEP Adult Treatment Panel for thefollowing risk-cutoff thresholds for the [place] Americanpulation. Performed By: #### L 500.4100 ####[facility] [address] [place], [place], [id number] Cholesterol in HDL [Mass/Vol] 44 mg/dL Normal [facility] Comment on above: Result Comment: Audrey onal Cholesterol Education Program (NCEP) guidelines:<40 mg/dL: Low HDL-cholesterol (major risk factor for CHD)>= 60 mg/dL: High HDL-cholesterol (negative risk factor forCHD)HDL-cholesterol is affected by a number of factors, e.g.smoking, exercise, hormones, sex and age. Performed By: #### L 500.4100 ####[facility] [address] [place], [address] Cholesterol in LDL [Mass/Vol] 18 mg/dL Normal [facility] Comment on above: Result Comment: Bord ydzhis=612-013 mg/dL Higher Quvt=465 mg/dL or greater Performed By: #### L 500.4100 ####[facility] [address] [place], [address] Cholesterol in VLDL [Mass/Vol] 31 mg/dL Normal 5-40 [facility] Comment on above: Performed By: #### L 500.4100 ####[facility] [address] [place], [address] Triglyceride [Mass/Vol] 155 mg/dL Normal [facility] Comment on above: Result Comment: The drugs N-Acetylcysteine and Metamizole may falselydepress this assay.Normal range: <150 mg/dLBorderline High: 150-199 mg/dLHigh: 200-499 mg/dLVery High: >500 mg/dL Performed By: #### L 500.4100 ####[facility] [address] [place], [place], [id number]) Serum or plasma cholesterol in HDL measurement (mass/volume)Ordered By: Seth Carrington on 09-21-2024 Cholesterol in HDL [Mass/Vol] 44 mg/dL >40 [facility] Serum or plasma cholesterol measurement (mass/volume)Ordered By: Seth Carrington on 09-21-2024 Cholesterol [Mass/Vol] 93 mg/dL <201 [facility] Anion gap in Serum or Plasma Ordered By: Seth Carrington on 09-20-2024 Anion gap [Moles/Vol] 11 mmol/L 5-15 [facility] BUN/creatinine ratioOrdered By: Seth Carrington on 09-20-2024 Urea nitrogen/Creatinine [Mass ratio] 17.8 mg/mg 10-20 [facility] Basic Metabolic Profile (BMP )on 09-20-2024 BUN/CRE 17.8 RATIO Normal -20 [facility] Comment on above: Performed By: #### L 500.2500 ####[facility] [address] [place], [address] Calcium [Mass/Vol] 9.4 mg/dL Normal 7.6-11.0 [facility] Comment on above: Performed By: #### L 500.2500 ####[facility] [address] [place], [address] Chloride [Moles/Vol] 100 mmol/L Normal 98-108 [facility] Comment on above: Performed By: #### L 500.2500 ####[facility] [address] [place], [address] CO2 [Moles/Vol] 25.3 mmol/L Normal 21.0-32.0 [facility] Comment on above: Performed By: #### L 500.2500 ####[facility] [address] [place], [address] Creatinine [Mass/Vol] 1.11 mg/dL Normal 0.70-1.20 [facility] Comment on above: Performed By: #### L 500.2500 ####[facility] [address] [place], [address] ECRCL 71.61 ml/min Normal 50-250 [facility] Comment on above: Performed By: #### L 500.2500 ####[facility] [address] [place], [address] GAP 11 Normal 5-15 [facility] Comment on above: Performed By: #### L 500.2500 ####[facility] [address] [place], [address] GFR/1.73 sq M.predicted among non-blacks MDRD (S/P/Bld) [Vol rate/Area] 74 mL/min/{1.73_m2} Normal >60 [facility] Comment on above: Result Comment: mL/m in/1.73m2 CKD-EPI Creatinine Equation (2020) Performed By: #### L 500.2500 ####[facility] [address] [place], [address] Glucose [Mass/Vol] 148 mg/dL High 70-99 [facility] Comment on above: Performed By: #### L 500.2500 ####[facility] [address] [place], [address] Potassium [Moles/Vol] 4.0 mmol/L Normal 3.3-5.1 [facility] Comment on above: Performed By: #### L 500.2500 ####[facility] [address] [place], [address] Sodium [Moles/Vol] 136 mmol/L Normal 133-145 [facility] Comment on above: Performed By: #### L 500.2500 ####[facility] [address] [place], [address] Urea nitrogen [Mass/Vol] 20 mg/dL High 4-19 [facility] Comment on above: Performed By: #### L 500.2500 ####[facility] [address] [place], [address] Bedside Glucoseon 09-20-2024 FINGERSTICK GLU 152 mg/dL High 74-106 [facility] Comment on above: Result Comment: SNEHA GEMENT OF PATIENT CARE PER NURSING PROTOCOL Performed By: #### L 501.080 ####[facility] [address] [place], [address] FINGERSTICK GLU 190 mg/dL High 74-106 [facility] Comment on above: Result Comment: SNEHA GEMENT OF PATIENT CARE PER NURSING PROTOCOL Performed By: #### L 501.080 ####[facility] [address] [place], [address] FINGERSTICK GLU 246 mg/dL High 74-106 [facility] Comment on above: Result Comment: SNEHA GEMENT OF PATIENT CARE PER NURSING PROTOCOL Performed By: #### L 501.080 ####[facility] [address] [place], [address] FINGERSTICK GLU 154 mg/dL High 74-106 [facility] Comment on above: Result Comment: SNEHA GEMENT OF PATIENT CARE PER NURSING PROTOCOL Performed By: #### L 501.080 ####[facility] [address] [place], [address] Carbon dioxide, total [Moles /volume] in Central venous bloodOrdered By: Seth Carrington on 09-20-2024 CO2 [Moles/Vol] 25.3 mmol/L 21.0-32.0 [facility] Chloride assayOrdered By: Carol Carrington on 09-20-2024 Chloride [Moles/Vol] 100 mmol/L 98-108 [facility] Electrocardiogram reportOrde red By: Calos Quinn on 09-20-2024 EKG study [facility] Work Phone: Glomerular filtration rate ( GFR) estimation/1.73 sq m using serum, plasma, or whole bOrdered By: Seth Carrington on 09-20-2024 GFR/1.73 sq M.predicted among non-blacks MDRD (S/P/Bld) [Vol rate/Area] 74 mL/min/{1.73_m2} >60 [facility] Potassium measurement (mass/ volume)Ordered By: Seth Carrington on 09-20-2024 Potassium (Unsp spec) [Mass/Vol] 4.0 mmol/L 3.3-5.1 [facility] Serum creatinine measurement (mass/volume)Ordered By: Seth Carrington on 09-20-2024 Creatinine [Mass/Vol] 1.11 mg/dL 0.70-1.20 [facility] Serum glucose measurement (m ass/volume)Ordered By: Seth Carrington on 09-20-2024 Glucose [Mass/Vol] 148 mg/dL High 70-99 [facility] Serum or plasma calcium brenda urement (mass/volume)Ordered By: Seth Carrington on 09-20-2024 Calcium [Mass/Vol] 9.4 mg/dL 7.6-11.0 [facility] Serum or plasma urea nitroge n measurement (mass/volume)Ordered By: Seth Carrington on 09-20-2024 Urea nitrogen [Mass/Vol] 20 mg/dL High 4-19 [facility] Sodium levelOrdered By: Seth Carrington on 09-20-2024 Sodium [Moles/Vol] 136 mmol/L 133-145 [facility] Basic Metabolic Profile (BMP )on 09-19-2024 BUN/CRE 18.5 RATIO Normal 10-20 [facility] Comment on above: Performed By: #### L 500.2500, L100.0500 ####[facility] [address] [place], [address] Calcium [Mass/Vol] 9.4 mg/dL Normal 7.6-11.0 [facility] Comment on above: Performed By: #### L 500.2500, L100.0500 ####[facility] [address] [place], [address] Chloride [Moles/Vol] 99 mmol/L Normal 98-108 [facility] Comment on above: Performed By: #### L 500.2500, L100.0500 ####[facility] [address] [place], [address] CO2 [Moles/Vol] 24.3 mmol/L Normal 21.0-32.0 [facility] Comment on above: Performed By: #### L 500.2500, L100.0500 ####[facility] [address] [place], [address] Creatinine [Mass/Vol] 1.13 mg/dL Normal 0.70-1.20 [facility] Comment on above: Performed By: #### L 500.2500, L100.0500 ####[facility] [address] [place], [address] ECRCL 70.34 ml/min Normal 50-250 [facility] Comment on above: Performed By: #### L 500.2500, L100.0500 ####[facility] [address] [place], [address] GAP 13 Normal 5-15 [facility] Comment on above: Performed By: #### L 500.2500, L100.0500 ####[facility] [address] [place], [address] GFR/1.73 sq M.predicted among non-blacks MDRD (S/P/Bld) [Vol rate/Area] 73 mL/min/{1.73_m2} Normal >60 [facility] Comment on above: Result Comment: mL/m in/1.73m2 CKD-EPI Creatinine Equation (2020) Performed By: #### L 500.2500, L100.0500 ####[facility] [address] [place], [address] Glucose [Mass/Vol] 187 mg/dL High 70-99 [facility] Comment on above: Performed By: #### L 500.2500, L100.0500 ####[facility] [address] [place], [address] Potassium [Moles/Vol] 3.7 mmol/L Normal 3.3-5.1 [facility] Comment on above: Performed By: #### L 500.2500, L100.0500 ####[facility] [address] [place], [address] Sodium [Moles/Vol] 136 mmol/L Normal 133-145 [facility] Comment on above: Performed By: #### L 500.2500, L100.0500 ####[facility] [address] [place], [address] Urea nitrogen [Mass/Vol] 21 mg/dL High 4-19 [facility] Comment on above: Performed By: #### L 500.2500, L100.0500 ####[facility] [address] [place], [address] Bedside Glucoseon 09-19-2024 FINGERSTICK GLU 198 mg/dL High 74-106 [facility] Comment on above: Result Comment: SNEHA GEMENT OF PATIENT CARE PER NURSING PROTOCOL Performed By: #### L 501.080 ####[facility] [address] [place], [address] FINGERSTICK GLU 170 mg/dL High 74-106 [facility] Comment on above: Result Comment: SNEHA GEMENT OF PATIENT CARE PER NURSING PROTOCOL Performed By: #### L 501.080 ####[facility] [address] [place], [address] FINGERSTICK GLU 193 mg/dL High 74-106 [facility] Comment on above: Result Comment: SNEHA GEMENT OF PATIENT CARE PER NURSING PROTOCOL Performed By: #### L 501.080 ####[facility] [address] [place], [address] FINGERSTICK GLU 163 mg/dL High 74-106 [facility] Comment on above: Result Comment: SNEHA GEMENT OF PATIENT CARE PER NURSING PROTOCOL Performed By: #### L 501.080 ####[facility] [address] [place], [address] CBC-Complete Blood Cnt No Di ffon 09-19-2024 Erythrocyte distribution width (RBC) [Ratio] 12.5 % Normal 11.6-14.6 [facility] Comment on above: Performed By: #### L 500.2500, L100.0500 ####[facility] [address] [place], [address] Hematocrit (Bld) [Volume fraction] 44.2 % Normal 40-54 [facility] Comment on above: Performed By: #### L 500.2500, L100.0500 ####[facility] [address] [place], [address] Hemoglobin (Bld) [Mass/Vol] 14.8 g/dL Normal 13.0-16.5 [facility] Comment on above: Performed By: #### L 500.2500, L100.0500 ####[facility] [address] [place], [address] MCH (RBC) [Entitic mass] 31.1 pg Normal 27.0-32.0 [facility] Comment on above: Performed By: #### L 500.2500, L100.0500 ####[facility] [address] [place], [address] MCHC (RBC) [Mass/Vol] 33.5 g/dL Normal 32-36 [facility] Comment on above: Performed By: #### L 500.2500, L100.0500 ####[facility] [address] [place], [address] MCV (RBC) [Entitic vol] 92.9 fL Normal 80-94 [facility] Comment on above: Performed By: #### L 500.2500, L100.0500 ####[facility] [address] [place], [address] Platelet mean volume (Bld) [Entitic vol] 9.5 fL Normal 6.2-12.0 [facility] Comment on above: Performed By: #### L 500.2500, L100.0500 ####[facility] [address] [place], [address] Platelets (Bld) [#/Vol] 297 10*3/uL Normal 150-450 [facility] Comment on above: Performed By: #### L 500.2500, L100.0500 ####[facility] [address] [place], [address] RBC (Bld) [#/Vol] 4.76 10*6/uL Normal 4.6-6.2 [facility] Comment on above: Performed By: #### L 500.2500, L100.0500 ####[facility] [address] [place], [address] RDW SD 43.1 fl Normal 35.1-43.9 [facility] Comment on above: Performed By: #### L 500.2500, L100.0500 ####[facility] [address] [place], [address] WBC (Bld) [#/Vol] 7.7 10*3/uL Normal 4.4-11.0 [facility] Comment on above: Performed By: #### L 500.2500, L100.0500 ####[facility] [address] [place], [address] Erythrocyte distribution wid th ratioOrdered By: Clinton Saores on 09-19-2024 Erythrocyte distribution width (RBC) [Ratio] 12.5 % 11.6-14.6 [facility] Erythrocyte distribution wid th standard deviationOrdered By: Clinton Soares on 09-19-2024 Erythrocyte distribution width (RBC) [Ratio] 43.1 fl 35.1-43.9 [facility] Hematocrit Auto (Bld) [Volum e fraction]Ordered By: Clinton Soares on 09-19-2024 Hematocrit (Bld) [Volume fraction] 44.2 % 40-54 [facility] Hemoglobin measurementOrdere d By: Clinton Soares on 09-19-2024 Hemoglobin (Bld) [Mass/Vol] 14.8 g/dL 13.0-16.5 [facility] Limited echocardiogram repor tOrdered By: Calos Quinn on 09-19-2024 Study report [facility] Work Phone: MCV (mean corpuscular volume ) determinationOrdered By: Clinton Soares on 09-19-2024 MCV (RBC) [Entitic vol] 92.9 fL 80-94 [facility] Mean corpuscular hemoglobin (MCH) determinationOrdered By: Clinton Soares on 09-19-2024 MCH (RBC) [Entitic mass] 31.1 pg 27.0-32.0 [facility] Platelet countOrdered By: Buzz Soares on 09-19-2024 Platelets (Bld) [#/Vol] 297 10*3/uL 150-450 [facility] RBC Auto (Bld) [#/Vol]Ordere d By: Clinton Soares on 09-19-2024 RBC (Bld) [#/Vol] 4.76 10*6/uL 4.6-6.2 [facility] White blood cell (WBC) count Ordered By: Clinton Soares on 09-19-2024 WBC (Bld) [#/Vol] 7.7 10*3/uL 4.4-11.0 [facility] 12 Lead EKGon 09-18-2024 12 Lead EKG Normal [facility] Absolute lymphocyte countOrd ered By: Saúl Aguilar on 09-18-2024 Lymphocytes Auto (Unsp spec) [#/Vol] 2.05 10*3/uL 0.83-4.51 [facility] Anion gap in Serum or Plasma Ordered By: Saúl Aguilar on 09-18-2024 Anion gap [Moles/Vol] 12 mmol/L - [facility] Automated lymphocyte count a s percentage of total leukocytesOrdered By: Saúl Aguilar on 09-18-2024 Lymphocytes/100 WBC Auto (Unsp spec) 27.0 % - [facility] BUN/creatinine ratioOrdered By: Saúl Aguilar on 09-18-2024 Urea nitrogen/Creatinine [Mass ratio] 16.5 mg/mg - [facility] Basic Metabolic Profile (BMP )on 09-18-2024 BUN/CRE 16.5 RATIO Normal 01-23 [facility] Comment on above: Performed By: #### L 500.0381, L503.7505 ####[facility] [address] [place], [address] Calcium [Mass/Vol] 9.3 mg/dL Normal 7.6-11.0 [facility] Comment on above: Performed By: #### L 500.2500, L503.7505 ####[facility] [address] [place], [address] Chloride [Moles/Vol] 105 mmol/L Normal 98-108 [facility] Comment on above: Performed By: #### L 500.2500, L503.7505 ####[facility] [address] [place], [address] CO2 [Moles/Vol] 22.3 mmol/L Normal 21.0-32.0 [facility] Comment on above: Performed By: #### L 500.2500, L503.7505 ####[facility] [address] [place], [address] Creatinine [Mass/Vol] 1.01 mg/dL Normal 0.70-1.20 [facility] Comment on above: Performed By: #### L 500.2500, L503.7505 ####[facility] [address] [place], [address] GAP 12 Normal 5-15 [facility] Comment on above: Performed By: #### L 500.2500, L503.7505 ####[facility] [address] [place], [address] GFR/1.73 sq M.predicted among non-blacks MDRD (S/P/Bld) [Vol rate/Area] 83 mL/min/{1.73_m2} Normal >60 [facility] Comment on above: Result Comment: mL/m in/1.73m2 CKD-EPI Creatinine Equation (2020) Performed By: #### L 500.2500, L503.7505 ####[facility] [address] [place], [address] Glucose [Mass/Vol] 184 mg/dL High 70-99 [facility] Comment on above: Performed By: #### L 500.2500, L503.7505 ####[facility] [address] [place], [address] Potassium [Moles/Vol] 5.0 mmol/L Normal 3.3-5.1 [facility] Comment on above: Result Comment: Hemo lysis present, Results??could be affected.?? Performed By: #### L 500.2500, L503.7505 ####[facility] [address] [place], [address] Sodium [Moles/Vol] 139 mmol/L Normal 133-145 [facility] Comment on above: Performed By: #### L 500.2500, L503.7505 ####[facility] [address] [place], [address] Urea nitrogen [Mass/Vol] 17 mg/dL Normal 4-19 [facility] Comment on above: Performed By: #### L 500.2500, L503.7505 ####[facility] [address] [place], [address] Basophil percentageOrdered B y: Saúl Aguilar on 09-18-2024 Basophils/100 WBC (Bld) 0.4 % 0-1 [facility] Bedside Glucoseon 09-18-2024 FINGERSTICK GLU 327 mg/dL High 74-106 [facility] Comment on above: Result Comment: SNEHA GEMENT OF PATIENT CARE PER NURSING PROTOCOL Performed By: #### L 501.080 ####[facility] [address] [place], [address] FINGERSTICK GLU 207 mg/dL High 74-106 [facility] Comment on above: Result Comment: SNEHA GEMENT OF PATIENT CARE PER NURSING PROTOCOL Performed By: #### L 501.080 ####[facility] [address] [place], [address] CBC W/Diff, Automatedon 06- Absolute Lymph 2.05 X10 3/uL Normal 0.83-4.51 [facility] Comment on above: Performed By: #### L 501.4021, L100.0100 ####[facility] [address] [place], [address] Absolute Neut 4.7 X10 3/uL Normal 2.0-7.7 [facility] Comment on above: Performed By: #### L 501.4021, L100.0100 ####[facility] [address] [place], [address] Basophils/100 WBC (Bld) 0.4 % Normal 0-1 [facility] Comment on above: Performed By: #### L 501.4021, L100.0100 ####[facility] [address] [place], [address] Eosinophils/100 WBC (Bld) 3.7 % Normal 0-5 [facility] Comment on above: Performed By: #### L 501.4021, L100.0100 ####[facility] [address] [place], [address] Erythrocyte distribution width (RBC) [Ratio] 12.9 % Normal 11.6-14.6 [facility] Comment on above: Performed By: #### L 501.4021, L100.0100 ####[facility] [address] [place], [address] Hematocrit (Bld) [Volume fraction] 44.4 % Normal 40-54 [facility] Comment on above: Performed By: #### L 501.4021, L100.0100 ####[facility] [address] [place], [address] Hemoglobin (Bld) [Mass/Vol] 14.8 g/dL Normal 13.0-16.5 [facility] Comment on above: Performed By: #### L 501.4021, L100.0100 ####[facility] [address] [place], [address] IG% 0.300 Normal 0.0-0.9 [facility] Comment on above: Result Comment: IG% - Immature Granulocytes (promyelocytes, myelocytes andmetamyelocytes) > 1% indicates that a LEFT SHIFT is Present. Performed By: #### L 501.4021, L100.0100 ####[facility] [address] [place], [address] Lymphocytes/100 WBC (Bld) 27.0 % Normal 19-41 [facility] Comment on above: Performed By: #### L 501.4021, L100.0100 ####[facility] [address] [place], [address] MCH (RBC) [Entitic mass] 31.9 pg Normal 27.0-32.0 [facility] Comment on above: Performed By: #### L 501.4021, L100.0100 ####[facility] [address] [place], [address] MCHC (RBC) [Mass/Vol] 33.3 g/dL Normal 32-36 [facility] Comment on above: Performed By: #### L 501.4021, L100.0100 ####[facility] [address] [place], [address] MCV (RBC) [Entitic vol] 95.7 fL High 80-94 [facility] Comment on above: Performed By: #### L 501.4021, L100.0100 ####[facility] [address] [place], [address] Monocytes/100 WBC (Bld) 6.7 % Normal 0-10 [facility] Comment on above: Performed By: #### L 501.4021, L100.0100 ####[facility] [address] [place], [address] Neutrophils/100 WBC (Bld) 61.9 % Normal 47-70 [facility] Comment on above: Performed By: #### L 501.4021, L100.0100 ####[facility] [address] [place], [address] Nucleated RBC (Bld) [#/Vol] 0 10*3/uL Normal 0-5 [facility] Comment on above: Performed By: #### L 501.4021, L100.0100 ####[facility] [address] [place], [address] Platelet mean volume (Bld) [Entitic vol] 9.5 fL Normal 6.2-12.0 [facility] Comment on above: Performed By: #### L 501.4021, L100.0100 ####[facility] [address] [place], [address] Platelets (Bld) [#/Vol] 276 10*3/uL Normal 150-450 [facility] Comment on above: Performed By: #### L 501.4021, L100.0100 ####[facility] [address] [place], [address] RBC (Bld) [#/Vol] 4.64 10*6/uL Normal 4.6-6.2 [facility] Comment on above: Performed By: #### L 501.4021, L100.0100 ####[facility] [address] [place], [address] RDW SD 45.1 fl High 35.1-43.9 [facility] Comment on above: Performed By: #### L 501.4021, L100.0100 ####[facility] [address] [place], [address] WBC (Bld) [#/Vol] 7.6 10*3/uL Normal 4.4-11.0 [facility] Comment on above: Performed By: #### L 501.4021, L100.0100 ####[facility] [address] [place], [address] Carbon dioxide, total [Moles /volume] in Central venous bloodOrdered By: Saúl Aguilar on 09-18-2024 CO2 [Moles/Vol] 22.3 mmol/L 21.0-32.0 [facility] Chest 1 View (Portable)on Chest 1 View (Portable) Normal [facility] Chloride assayOrdered By: Chacho Aguilar on 09-18-2024 Chloride [Moles/Vol] 105 mmol/L 98-108 [facility] Echo, Limited Studyon 2024 Echo, Limited Study Normal [facility] Emergency Department Summary on 09-18-2024 Emergency Department Summary Normal [facility] Eosinophil percentageOrdered By: Saúl Aguilar on 09-18-2024 Eosinophils/100 WBC (Bld) 3.7 % 0-5 [facility] Erythrocyte distribution wid th ratioOrdered By: Saúl Aguilar on 09-18-2024 Erythrocyte distribution width (RBC) [Ratio] 12.9 % 11.6-14.6 [facility] Erythrocyte distribution wid th standard deviationOrdered By: Saúl Aguilar on 09-18-2024 Erythrocyte distribution width (RBC) [Ratio] 45.1 fl High 35.1-43.9 [facility] Glomerular filtration rate ( GFR) estimation/1.73 sq m using serum, plasma, or whole bOrdered By: Saúl Aguilar on 09-18-2024 GFR/1.73 sq M.predicted among non-blacks MDRD (S/P/Bld) [Vol rate/Area] 83 mL/min/{1.73_m2} >60 [facility] H AND P Exam - Hospitaliston 09-18-2024 H&P Exam - Hospitalist Normal [facility] Hematocrit Auto (Bld) [Volum e fraction]Ordered By: Saúl Aguilar on 09-18-2024 Hematocrit (Bld) [Volume fraction] 44.4 % 40-54 [facility] Hemoglobin A1con 09-18-2024 HbA1c (Bld) [Mass fraction] 9.9 % High <=5.6 [facility] Comment on above: Result Comment: Norm al < 5.7 % Prediabetic 5.7 - 6.4 % Diabetic >or= 6.5 % Please note range changes. Performed By: #### L 501.9985 ####[facility] [address] [place], [place], [address] Hemoglobin A1c percentageOrd ered By: Clinton Soares on 09-18-2024 HbA1c (Bld) [Mass fraction] 9.9 % High <5.7 [facility] Hemoglobin measurementOrdere d By: Saúl Aguilar on 09-18-2024 Hemoglobin (Bld) [Mass/Vol] 14.8 g/dL 13.0-16.5 [facility] Immature granulocytes/100 WB C Auto (Bld)Ordered By: Saúl Aguilar on 09-18-2024 Immature granulocytes/100 WBC (Bld) 0.300 % 0.0-0.9 [facility] L499.0042on 09-18-2024 Trop T High Sen 62 ng/L Invalid Interpretation Code <=22 [facility] Comment on above: Result Comment: Crit ical Result(s) Called at: 09/18/2024-01:23 by: Nesha Rodriguez.??Results read back by same. Performed By: #### L 499.0042 ####[facility] [address] [place], [address] L499.0043on 09-18-2024 Trop T High Sen 64 ng/L Invalid Interpretation Code <=22 [facility] Comment on above: Result Comment: Crit ical Result(s) Called at: 09/18/2024-11:33 by: Nesha Haider.??Results read back by same. Performed By: #### L 499.0043 ####[facility] [address] [place], [address] L501.4021on 09-18-2024 Trop T High Sen 64 ng/L Invalid Interpretation Code <=22 [facility] Comment on above: Result Comment: Hemo lysis present, Results??could be affected.??Critical Result(s) Called at: 09/18/2024-11:33 by: Nesha to Dolly Rodriguez.??Results read back by same. Performed By: #### L 501.4021, L100.0100 ####[facility] [address] [place], [address] L503.7505on 09-18-2024 Natriuretic peptide B (Bld) [Mass/Vol] 2552 pg/mL High <=900 [facility] Comment on above: Result Comment: Hear t Failure Unlikely: < 300 pg/mLHeart Failure Likely< 50 Years: > 450 pg/mL50-75 Years: > 900 pg/mL>75 Years: > 1800 pg/mL Performed By: #### L 500.2500, L503.7505 ####[facility] [address] [place], [place], [address] MCV (mean corpuscular volume ) determinationOrdered By: Saúl Aguilar on 09-18-2024 MCV (RBC) [Entitic vol] 95.7 fL High 80-94 [facility] Mean corpuscular hemoglobin (MCH) determinationOrdered By: Saúl Aguilar on 09-18-2024 MCH (RBC) [Entitic mass] 31.9 pg 27.0-32.0 [facility] Monocyte percentageOrdered B y: Saúl Aguilar on 09-18-2024 Monocytes/100 WBC (Bld) 6.7 % 0-10 [facility] Natriuretic peptide.B prohor parris N-Terminal [Mass/volume] in Serum or PlasmaOrdered By: Saúl Aguilar on 09-18-2024 Natriuretic peptide.B prohormone N-Terminal [Mass/Vol] 2552 pg/mL High <900 [facility] Neutrophil percentageOrdered By: Saúl Aguilar on 09-18-2024 Neutrophils/100 WBC (Bld) 61.9 % 47-70 [facility] Platelet countOrdered By: Chacho Aguilar on 09-18-2024 Platelets (Bld) [#/Vol] 276 10*3/uL 150-450 [facility] Potassium measurement (mass/ volume)Ordered By: Saúl Aguilar on 09-18-2024 Potassium (Unsp spec) [Mass/Vol] 5.0 mmol/L 3.3-5.1 [facility] RBC Auto (Bld) [#/Vol]Ordere d By: Saúl Aguilar on 09-18-2024 RBC (Bld) [#/Vol] 4.64 10*6/uL 4.6-6.2 [facility] Serum creatinine measurement (mass/volume)Ordered By: Saúl Aguilar on 09-18-2024 Creatinine [Mass/Vol] 1.01 mg/dL 0.70-1.20 [facility] Serum glucose measurement (m ass/volume)Ordered By: Saúl Aguilar on 09-18-2024 Glucose [Mass/Vol] 184 mg/dL High 70-99 [facility] Serum or plasma calcium brenda urement (mass/volume)Ordered By: Saúl Aguilar on 09-18-2024 Calcium [Mass/Vol] 9.3 mg/dL 7.6-11.0 [facility] Serum or plasma urea nitroge n measurement (mass/volume)Ordered By: Saúl Aguilar on 09-18-2024 Urea nitrogen [Mass/Vol] 17 mg/dL 4-19 [facility] Sodium levelOrdered By: Saúl Aguilar on 09-18-2024 Sodium [Moles/Vol] 139 mmol/L 133-145 [facility] Troponin T.cardiac [Mass/vol ume] in Serum or Plasma by High sensitivity methodOrdered By: Saúl Aguilar on 09-18-2024 Troponin T.cardiac High sensitivity method [Mass/Vol] 64 ng/L High <22 [facility] Troponin T.cardiac High sensitivity method [Mass/Vol] 62 ng/L High <22 [facility] Troponin T.cardiac High sensitivity method [Mass/Vol] 64 ng/L High <22 [facility] White blood cell (WBC) count Ordered By: Saúl Aguilar on 09-18-2024 WBC (Bld) [#/Vol] 7.6 10*3/uL 4.4-11.0 [facility] Arterial study reportOrdered By: Saúl Flowers on 09-08-2024 Noninvasive arteriosclerosis study report [facility] Work Phone: [phone] Carotid Duplex Ultrasoundon 09-08-2024 Carotid Duplex Ultrasound Normal [facility] Duplex ultrasound of carotid artery reportOrdered By: Saúl Flowers on 09-08-2024 Study report [facility] Work Phone: [phone] Lower Ext Art Exam w/o Exerc zachary 09-08-2024 Lower Ext Art Exam w/o Exercis Normal [facility] Internal Medicine Office Vis iton 08-02-2024 Internal Medicine Office Visit Normal [facility] No Panel InformationOrdered By: Xiang Rogers on 08-02-2024 12.5 % High 4.2-6.3 [facility] L499.0043on 07-30-2024 Trop T High Sen Normal <=22 [facility] Comment on above: Result Comment: Canc elled via OM: Order cancelled - Patient discharged Performed By: #### L 499.0043 ####[facility] [address] [place], [address] Absolute lymphocyte countOrd ered By: ED PROVIDER on 07-29-2024 Lymphocytes Auto (Unsp spec) [#/Vol] 2.79 10*3/uL 0.83-4.51 [facility] Anion gap in Serum or Plasma Ordered By: Lawson Castellon on 07-29-2024 Anion gap [Moles/Vol] 16 mmol/L High 5-15 [facility] Automated lymphocyte count a s percentage of total leukocytesOrdered By: ED PROVIDER on 07-29-2024 Lymphocytes/100 WBC Auto (Unsp spec) 37.4 % 19-41 [facility] BUN/creatinine ratioOrdered By: Lawson Castellon on 07-29-2024 Urea nitrogen/Creatinine [Mass ratio] 20.7 mg/mg High 10-20 [facility] Basic Metabolic Profile (BMP )on 07-29-2024 BUN/CRE 20.7 RATIO High - [facility] Comment on above: Performed By: #### L 501.4021, L500.2500, L100.0100 ####[facility] [address] [place], [address] Calcium [Mass/Vol] 9.3 mg/dL Normal 7.6-11.0 [facility] Comment on above: Performed By: #### L 501.4021, L500.2500, L100.0100 ####[facility] [address] [place], [address] Chloride [Moles/Vol] 99 mmol/L Normal 98-108 [facility] Comment on above: Performed By: #### L 501.4021, L500.2500, L100.0100 ####[facility] [address] [place], [address] CO2 [Moles/Vol] 19.8 mmol/L Low 21.0-32.0 [facility] Comment on above: Performed By: #### L 501.4021, L500.2500, L100.0100 ####[facility] [address] [place], [address] Creatinine [Mass/Vol] 1.11 mg/dL Normal 0.70-1.20 [facility] Comment on above: Performed By: #### L 501.4021, L500.2500, L100.0100 ####[facility] [address] [place], [address] ECRCL 71.61 ml/min Normal 50-250 [facility] Comment on above: Performed By: #### L 501.4021, L500.2500, L100.0100 ####[facility] [address] [place], [address] GAP 16 High 5-15 [facility] Comment on above: Performed By: #### L 501.4021, L500.2500, L100.0100 ####[facility] [address] [place], [address] GFR/1.73 sq M.predicted among non-blacks MDRD (S/P/Bld) [Vol rate/Area] 74 mL/min/{1.73_m2} Normal >60 [facility] Comment on above: Result Comment: mL/m in/1.73m2 CKD-EPI Creatinine Equation (2020) Performed By: #### L 501.4021, L500.2500, L100.0100 ####[facility] [address] [place], [address] Glucose [Mass/Vol] 400 mg/dL High 70-99 [facility] Comment on above: Performed By: #### L 501.4021, L500.2500, L100.0100 ####[facility] [address] [place], [address] Potassium [Moles/Vol] 4.0 mmol/L Normal 3.3-5.1 [facility] Comment on above: Result Comment: Hemo lysis present, Results??could be affected.?? Performed By: #### L 501.4021, L500.2500, L100.0100 ####[facility] [address] [place], [address] Sodium [Moles/Vol] 134 mmol/L Normal 133-145 [facility] Comment on above: Performed By: #### L 501.4021, L500.2500, L100.0100 ####[facility] [address] [place], [address] Urea nitrogen [Mass/Vol] 23 mg/dL High 4-19 [facility] Comment on above: Performed By: #### L 501.4021, L500.2500, L100.0100 ####[facility] [address] [place], [address] Basophil percentageOrdered B y: ED PROVIDER on 07-29-2024 Basophils/100 WBC (Bld) 0.3 % 0-1 [facility] CBC W/Diff, Automatedon 04-5 Absolute Lymph 2.79 X10 3/uL Normal 0.83-4.51 [facility] Comment on above: Performed By: #### L 501.4021, L500.2500, L100.0100 ####[facility] [address] [place], [address] Absolute Neut 4.0 X10 3/uL Normal 2.0-7.7 [facility] Comment on above: Performed By: #### L 501.4021, L500.2500, L100.0100 ####[facility] [address] [place], [address] Basophils/100 WBC (Bld) 0.3 % Normal 0-1 [facility] Comment on above: Performed By: #### L 501.4021, L500.2500, L100.0100 ####[facility] [address] [place], [address] Eosinophils/100 WBC (Bld) 2.5 % Normal 0-5 [facility] Comment on above: Performed By: #### L 501.4021, L500.2500, L100.0100 ####[facility] [address] [place], [address] Erythrocyte distribution width (RBC) [Ratio] 12.7 % Normal 11.6-14.6 [facility] Comment on above: Performed By: #### L 501.4021, L500.2500, L100.0100 ####[facility] [address] [place], [address] Hematocrit (Bld) [Volume fraction] 44.1 % Normal 40-54 [facility] Comment on above: Performed By: #### L 501.4021, L500.2500, L100.0100 ####[facility] [address] [place], [address] Hemoglobin (Bld) [Mass/Vol] 15.6 g/dL Normal 13.0-16.5 [facility] Comment on above: Performed By: #### L 501.4021, L500.2500, L100.0100 ####[facility] [address] [place], [address] IG% 0.100 Normal 0.0-0.9 [facility] Comment on above: Result Comment: IG% - Immature Granulocytes (promyelocytes, myelocytes andmetamyelocytes) > 1% indicates that a LEFT SHIFT is Present. Performed By: #### L 501.4021, L500.2500, L100.0100 ####[facility] [address] [place], [address] Lymphocytes/100 WBC (Bld) 37.4 % Normal 19-41 [facility] Comment on above: Performed By: #### L 501.4021, L500.2500, L100.0100 ####[facility] [address] [place], [address] MCH (RBC) [Entitic mass] 32.2 pg High 27.0-32.0 [facility] Comment on above: Performed By: #### L 501.4021, L500.2500, L100.0100 ####[facility] [address] [place], [address] MCHC (RBC) [Mass/Vol] 35.4 g/dL Normal 32-36 [facility] Comment on above: Performed By: #### L 501.4021, L500.2500, L100.0100 ####[facility] [address] [place], [address] MCV (RBC) [Entitic vol] 90.9 fL Normal 80-94 [facility] Comment on above: Performed By: #### L 501.4021, L500.2500, L100.0100 ####[facility] [address] [place], [address] Monocytes/100 WBC (Bld) 6.6 % Normal 0-10 [facility] Comment on above: Performed By: #### L 501.4021, L500.2500, L100.0100 ####[facility] [address] [place], [address] Neutrophils/100 WBC (Bld) 53.1 % Normal 47-70 [facility] Comment on above: Performed By: #### L 501.4021, L500.2500, L100.0100 ####[facility] [address] [place], [address] Nucleated RBC (Bld) [#/Vol] 0 10*3/uL Normal 0-5 [facility] Comment on above: Performed By: #### L 501.4021, L500.2500, L100.0100 ####[facility] [address] [place], [address] Platelet mean volume (Bld) [Entitic vol] 10.3 fL Normal 6.2-12.0 [facility] Comment on above: Performed By: #### L 501.4021, L500.2500, L100.0100 ####[facility] [address] [place], [address] Platelets (Bld) [#/Vol] 275 10*3/uL Normal 150-450 [facility] Comment on above: Performed By: #### L 501.4021, L500.2500, L100.0100 ####[facility] [address] [place], [address] RBC (Bld) [#/Vol] 4.85 10*6/uL Normal 4.6-6.2 [facility] Comment on above: Performed By: #### L 501.4021, L500.2500, L100.0100 ####[facility] [address] [place], [address] RDW SD 41.7 fl Normal 35.1-43.9 [facility] Comment on above: Performed By: #### L 501.4021, L500.2500, L100.0100 ####[facility] [address] [place], [address] WBC (Bld) [#/Vol] 7.5 10*3/uL Normal 4.4-11.0 [facility] Comment on above: Performed By: #### L 501.4021, L500.2500, L100.0100 ####[facility] [address] [place], [address] Carbon dioxide, total [Moles /volume] in Central venous bloodOrdered By: aLwson Castellon on 07-29-2024 CO2 [Moles/Vol] 19.8 mmol/L Low 21.0-32.0 [facility] Chest 1 View (Portable)on Chest 1 View (Portable) Normal [facility] Chloride assayOrdered By: Isael Castellon on 07-29-2024 Chloride [Moles/Vol] 99 mmol/L 98-108 [facility] Emergency Department Summary on 07-29-2024 Emergency Department Summary Normal [facility] Eosinophil percentageOrdered By: ED PROVIDER on 07-29-2024 Eosinophils/100 WBC (Bld) 2.5 % 0-5 [facility] Erythrocyte distribution wid th ratioOrdered By: ED PROVIDER on 07-29-2024 Erythrocyte distribution width (RBC) [Ratio] 12.7 % 11.6-14.6 [facility] Erythrocyte distribution wid th standard deviationOrdered By: ED PROVIDER on 07-29-2024 Erythrocyte distribution width (RBC) [Ratio] 41.7 fl 35.1-43.9 [facility] Glomerular filtration rate ( GFR) estimation/1.73 sq m using serum, plasma, or whole bOrdered By: Lawson Castellon on 07-29-2024 GFR/1.73 sq M.predicted among non-blacks MDRD (S/P/Bld) [Vol rate/Area] 74 mL/min/{1.73_m2} >60 [facility] Hematocrit Auto (Bld) [Volum e fraction]Ordered By: ED PROVIDER on 07-29-2024 Hematocrit (Bld) [Volume fraction] 44.1 % 40-54 [facility] Hemoglobin measurementOrdere d By: ED PROVIDER on 07-29-2024 Hemoglobin (Bld) [Mass/Vol] 15.6 g/dL 13.0-16.5 [facility] Immature granulocytes/100 WB C Auto (Bld)Ordered By: ED PROVIDER on 07-29-2024 Immature granulocytes/100 WBC (Bld) 0.100 % 0.0-0.9 [facility] L499.0042on 07-29-2024 Trop T High Sen 27 ng/L High <=22 [facility] Comment on above: Performed By: #### L 499.0042 ####[facility] [address] [facility] [place], [address] L501.4021on 07-29-2024 Trop T High Sen 22 ng/L Normal <=22 [facility] Comment on above: Performed By: #### L 501.4021, L500.2500, L100.0100 ####[facility] [address] [facility] [place], [address] MCV (mean corpuscular volume ) determinationOrdered By: ED PROVIDER on 07-29-2024 MCV (RBC) [Entitic vol] 90.9 fL 80-94 [facility] Mean corpuscular hemoglobin (MCH) determinationOrdered By: ED PROVIDER on 07-29-2024 MCH (RBC) [Entitic mass] 32.2 pg High 27.0-32.0 [facility] Monocyte percentageOrdered B y: ED PROVIDER on 07-29-2024 Monocytes/100 WBC (Bld) 6.6 % 0-10 [facility] Neutrophil percentageOrdered By: ED PROVIDER on 07-29-2024 Neutrophils/100 WBC (Bld) 53.1 % 47-70 [facility] Platelet countOrdered By: ED PROVIDER on 07-29-2024 Platelets (Bld) [#/Vol] 275 10*3/uL 150-450 [facility] Potassium measurement (mass/ volume)Ordered By: Lawson Castellon on 07-29-2024 Potassium (Unsp spec) [Mass/Vol] 4.0 mmol/L 3.3-5.1 [facility] RBC Auto (Bld) [#/Vol]Ordere d By: ED PROVIDER on 07-29-2024 RBC (Bld) [#/Vol] 4.85 10*6/uL 4.6-6.2 [facility] Serum creatinine measurement (mass/volume)Ordered By: Lawson Castellon on 07-29-2024 Creatinine [Mass/Vol] 1.11 mg/dL 0.70-1.20 [facility] Serum glucose measurement (m ass/volume)Ordered By: Lawson Castellon on 07-29-2024 Glucose [Mass/Vol] 400 mg/dL High 70-99 [facility] Serum or plasma calcium brenda urement (mass/volume)Ordered By: Lawson Castellon on 07-29-2024 Calcium [Mass/Vol] 9.3 mg/dL 7.6-11.0 [facility] Serum or plasma urea nitroge n measurement (mass/volume)Ordered By: Lawson Castellon on 07-29-2024 Urea nitrogen [Mass/Vol] 23 mg/dL High 07-23 [facility] Sodium levelOrdered By: Lawson Castellon on 07-29-2024 Sodium [Moles/Vol] 134 mmol/L 133-145 [facility] Troponin T.cardiac [Mass/vol ume] in Serum or Plasma by High sensitivity methodOrdered By: Lawson Castellon on 07-29-2024 Troponin T.cardiac High sensitivity method [Mass/Vol] 27 ng/L High <22 [facility] Troponin T.cardiac High sensitivity method [Mass/Vol] 22 ng/L <22 [facility] White blood cell (WBC) count Ordered By: ED PROVIDER on 07-29-2024 WBC (Bld) [#/Vol] 7.5 10*3/uL 4.4-11.0 [facility] MR/BMS.BVSon 07-14-2024 MR/BMS.BVS Normal [facility] Cardiology Visit Reporton Cardiology Visit Report Normal [facility] Basic Metabolic Profile (BMP )on 06-26-2024 BUN Normal - [facility] Comment on above: Result Comment: Canc elled via OM: Order cancelled - Patient discharged Performed By: #### L 500.2500, L100.0500 ####[facility] [address] [place], [address] BUN/CRE Normal 10-20 [facility] Comment on above: Result Comment: Canc elled via OM: Order cancelled - Patient discharged Performed By: #### L 500.2500, L100.0500 ####[facility] [address] [place], [address] Calcium Normal 7.6-11.0 [facility] Comment on above: Result Comment: Canc elled via OM: Order cancelled - Patient discharged Performed By: #### L 500.2500, L100.0500 ####[facility] [address] [place], [address] CL Normal 98-108 [facility] Comment on above: Result Comment: Canc elled via OM: Order cancelled - Patient discharged Performed By: #### L 500.2500, L100.0500 ####[facility] [address] [place], [address] CO2 Normal 21.0-32.0 [facility] Comment on above: Result Comment: Canc elled via OM: Order cancelled - Patient discharged Performed By: #### L 500.2500, L100.0500 ####[facility] [address] [place], [address] CREAT,SERUM Normal 0.70-1.20 [facility] Comment on above: Result Comment: Canc elled via OM: Order cancelled - Patient discharged Performed By: #### L 500.2500, L100.0500 ####[facility] [address] [place], [address] eGFR Normal >60 [facility] Comment on above: Result Comment: Canc elled via OM: Order cancelled - Patient discharged Performed By: #### L 500.2500, L100.0500 ####[facility] [address] [place], [address] GAP Normal 5-15 [facility] Comment on above: Result Comment: Canc elled via OM: Order cancelled - Patient discharged Performed By: #### L 500.2500, L100.0500 ####[facility] [address] [place], [address] GLU Normal 70-99 [facility] Comment on above: Result Comment: Canc elled via OM: Order cancelled - Patient discharged Performed By: #### L 500.2500, L100.0500 ####[facility] [address] [place], [address] Potassium Normal 3.3-5.1 [facility] Comment on above: Result Comment: Canc elled via OM: Order cancelled - Patient discharged Performed By: #### L 500.2500, L100.0500 ####[facility] [address] [place], [address] Basic Metabolic Profile (BMP) Normal 133-145 [facility] Comment on above: Result Comment: Canc elled via OM: Order cancelled - Patient discharged Performed By: #### L 500.2500, L100.0500 ####[facility] [address] [place], [address] CBC-Complete Blood Cnt No Di ffon 06-26-2024 HCT Normal 40-54 [facility] Comment on above: Result Comment: Canc elled via OM: Order cancelled - Patient discharged Performed By: #### L 500.2500, L100.0500 ####[facility] [address] [place], [address] HGB Normal 13.0-16.5 [facility] Comment on above: Result Comment: Canc elled via OM: Order cancelled - Patient discharged Performed By: #### L 500.2500, L100.0500 ####[facility] [address] [place], [address] MCH Normal 27.0-32.0 [facility] Comment on above: Result Comment: Canc elled via OM: Order cancelled - Patient discharged Performed By: #### L 500.2500, L100.0500 ####[facility] [address] [place], [address] MCHC Normal 32-36 [facility] Comment on above: Result Comment: Canc elled via OM: Order cancelled - Patient discharged Performed By: #### L 500.2500, L100.0500 ####[facility] [address] [place], [address] MCV Normal 80-94 [facility] Comment on above: Result Comment: Canc elled via OM: Order cancelled - Patient discharged Performed By: #### L 500.2500, L100.0500 ####[facility] [address] [place], [address] PLT Normal 150-450 [facility] Comment on above: Result Comment: Canc elled via OM: Order cancelled - Patient discharged Performed By: #### L 500.2500, L100.0500 ####[facility] [address] [place], [address] RBC Normal 4.6-6.2 [facility] Comment on above: Result Comment: Canc elled via OM: Order cancelled - Patient discharged Performed By: #### L 500.2500, L100.0500 ####[facility] [address] [place], [address] RDW CV Normal 11.6-14.6 [facility] Comment on above: Result Comment: Canc elled via OM: Order cancelled - Patient discharged Performed By: #### L 500.2500, L100.0500 ####[facility] [address] [place], [address] RDW SD Normal 35.1-43.9 [facility] Comment on above: Result Comment: Canc elled via OM: Order cancelled - Patient discharged Performed By: #### L 500.2500, L100.0500 ####[facility] [address] [place], [address] WBC Normal 4.4-11.0 [facility] Comment on above: Result Comment: Canc elled via OM: Order cancelled - Patient discharged Performed By: #### L 500.2500, L100.0500 ####[facility] [address] [place], [address] Basic Metabolic Profile (BMP )on 06-25-2024 BUN Normal 4-19 [facility] Comment on above: Result Comment: Canc elled via OM: Order cancelled - Patient discharged Performed By: #### L 500.2500, L100.0500 ####[facility] [address] [place], [address] BUN/CRE Normal 10-20 [facility] Comment on above: Result Comment: Canc elled via OM: Order cancelled - Patient discharged Performed By: #### L 500.2500, L100.0500 ####[facility] [address] [place], [address] Calcium Normal 7.6-11.0 [facility] Comment on above: Result Comment: Canc elled via OM: Order cancelled - Patient discharged Performed By: #### L 500.2500, L100.0500 ####[facility] [address] [place], [address] CL Normal 98-108 [facility] Comment on above: Result Comment: Canc elled via OM: Order cancelled - Patient discharged Performed By: #### L 500.2500, L100.0500 ####[facility] [address] [place], [address] CO2 Normal 21.0-32.0 [facility] Comment on above: Result Comment: Canc elled via OM: Order cancelled - Patient discharged Performed By: #### L 500.2500, L100.0500 ####[facility] [address] [place], [address] CREAT,SERUM Normal 0.70-1.20 [facility] Comment on above: Result Comment: Canc elled via OM: Order cancelled - Patient discharged Performed By: #### L 500.2500, L100.0500 ####[facility] [address] [place], [address] eGFR Normal >60 [facility] Comment on above: Result Comment: Canc elled via OM: Order cancelled - Patient discharged Performed By: #### L 500.2500, L100.0500 ####[facility] [address] [place], [address] GAP Normal 5-15 [facility] Comment on above: Result Comment: Canc elled via OM: Order cancelled - Patient discharged Performed By: #### L 500.2500, L100.0500 ####[facility] [address] [place], [address] GLU Normal 70-99 [facility] Comment on above: Result Comment: Canc elled via OM: Order cancelled - Patient discharged Performed By: #### L 500.2500, L100.0500 ####[facility] [address] [place], [address] Potassium Normal 3.3-5.1 [facility] Comment on above: Result Comment: Canc elled via OM: Order cancelled - Patient discharged Performed By: #### L 500.2500, L100.0500 ####[facility] [address] [place], [address] Basic Metabolic Profile (BMP) Normal 133-145 [facility] Comment on above: Result Comment: Canc elled via OM: Order cancelled - Patient discharged Performed By: #### L 500.2500, L100.0500 ####[facility] [address] [place], [address] CBC-Complete Blood Cnt No Di ffon 06-25-2024 HCT Normal 40-54 [facility] Comment on above: Result Comment: Canc elled via OM: Order cancelled - Patient discharged Performed By: #### L 500.2500, L100.0500 ####[facility] [address] [place], [address] HGB Normal 13.0-16.5 [facility] Comment on above: Result Comment: Canc elled via OM: Order cancelled - Patient discharged Performed By: #### L 500.2500, L100.0500 ####[facility] [address] [place], [address] MCH Normal 27.0-32.0 [facility] Comment on above: Result Comment: Canc elled via OM: Order cancelled - Patient discharged Performed By: #### L 500.2500, L100.0500 ####[facility] [address] [place], [address] MCHC Normal 32-36 [facility] Comment on above: Result Comment: Canc elled via OM: Order cancelled - Patient discharged Performed By: #### L 500.2500, L100.0500 ####[facility] [address] [place], [address] MCV Normal 80-94 [facility] Comment on above: Result Comment: Canc elled via OM: Order cancelled - Patient discharged Performed By: #### L 500.2500, L100.0500 ####[facility] [address] [place], [address] PLT Normal 150-450 [facility] Comment on above: Result Comment: Canc elled via OM: Order cancelled - Patient discharged Performed By: #### L 500.2500, L100.0500 ####[facility] [address] [place], [address] RBC Normal 4.6-6.2 [facility] Comment on above: Result Comment: Canc elled via OM: Order cancelled - Patient discharged Performed By: #### L 500.2500, L100.0500 ####[facility] [address] [place], [address] RDW CV Normal 11.6-14.6 [facility] Comment on above: Result Comment: Canc elled via OM: Order cancelled - Patient discharged Performed By: #### L 500.2500, L100.0500 ####[facility] [address] [place], [address] RDW SD Normal 35.1-43.9 [facility] Comment on above: Result Comment: Canc elled via OM: Order cancelled - Patient discharged Performed By: #### L 500.2500, L100.0500 ####[facility] [address] [place], [address] WBC Normal 4.4-11.0 [facility] Comment on above: Result Comment: Canc elled via OM: Order cancelled - Patient discharged Performed By: #### L 500.2500, L100.0500 ####[facility] [address] [place], [address] Basic Metabolic Profile (BMP )on 06-24-2024 BUN Normal 4-19 [facility] Comment on above: Result Comment: Canc elled via OM: Order cancelled - Patient discharged Performed By: #### L 500.2500, L100.0500 ####[facility] [address] [place], [address] BUN/CRE Normal 10-20 [facility] Comment on above: Result Comment: Canc elled via OM: Order cancelled - Patient discharged Performed By: #### L 500.2500, L100.0500 ####[facility] [address] [place], [address] Calcium Normal 7.6-11.0 [facility] Comment on above: Result Comment: Canc elled via OM: Order cancelled - Patient discharged Performed By: #### L 500.2500, L100.0500 ####[facility] [address] [place], [address] CL Normal 98-108 [facility] Comment on above: Result Comment: Canc elled via OM: Order cancelled - Patient discharged Performed By: #### L 500.2500, L100.0500 ####[facility] [address] [place], [address] CO2 Normal 21.0-32.0 [facility] Comment on above: Result Comment: Canc elled via OM: Order cancelled - Patient discharged Performed By: #### L 500.2500, L100.0500 ####[facility] [address] [place], [address] CREAT,SERUM Normal 0.70-1.20 [facility] Comment on above: Result Comment: Canc elled via OM: Order cancelled - Patient discharged Performed By: #### L 500.2500, L100.0500 ####[facility] [address] [place], [address] eGFR Normal >60 [facility] Comment on above: Result Comment: Canc elled via OM: Order cancelled - Patient discharged Performed By: #### L 500.2500, L100.0500 ####[facility] [address] [place], [address] GAP Normal 5-15 [facility] Comment on above: Result Comment: Canc elled via OM: Order cancelled - Patient discharged Performed By: #### L 500.2500, L100.0500 ####[facility] [address] [place], [address] GLU Normal 70-99 [facility] Comment on above: Result Comment: Canc elled via OM: Order cancelled - Patient discharged Performed By: #### L 500.2500, L100.0500 ####[facility] [address] [place], [address] Potassium Normal 3.3-5.1 [facility] Comment on above: Result Comment: Canc elled via OM: Order cancelled - Patient discharged Performed By: #### L 500.2500, L100.0500 ####[facility] [address] [place], [address] Basic Metabolic Profile (BMP) Normal 133-145 [facility] Comment on above: Result Comment: Canc elled via OM: Order cancelled - Patient discharged Performed By: #### L 500.2500, L100.0500 ####[facility] [address] [place], [address] CBC-Complete Blood Cnt No Di ffon 06-24-2024 HCT Normal 40-54 [facility] Comment on above: Result Comment: Canc elled via OM: Order cancelled - Patient discharged Performed By: #### L 500.2500, L100.0500 ####[facility] [address] [place], [address] HGB Normal 13.0-16.5 [facility] Comment on above: Result Comment: Canc elled via OM: Order cancelled - Patient discharged Performed By: #### L 500.2500, L100.0500 ####[facility] [address] [place], [address] MCH Normal 27.0-32.0 [facility] Comment on above: Result Comment: Canc elled via OM: Order cancelled - Patient discharged Performed By: #### L 500.2500, L100.0500 ####[facility] [address] [place], [address] MCHC Normal 32-36 [facility] Comment on above: Result Comment: Canc elled via OM: Order cancelled - Patient discharged Performed By: #### L 500.2500, L100.0500 ####[facility] [address] [place], [address] MCV Normal 80-94 [facility] Comment on above: Result Comment: Canc elled via OM: Order cancelled - Patient discharged Performed By: #### L 500.2500, L100.0500 ####[facility] [address] [place], [address] PLT Normal 150-450 [facility] Comment on above: Result Comment: Canc elled via OM: Order cancelled - Patient discharged Performed By: #### L 500.2500, L100.0500 ####[facility] [address] [place], [address] RBC Normal 4.6-6.2 [facility] Comment on above: Result Comment: Canc elled via OM: Order cancelled - Patient discharged Performed By: #### L 500.2500, L100.0500 ####[facility] [address] [place], [address] RDW CV Normal 11.6-14.6 [facility] Comment on above: Result Comment: Canc elled via OM: Order cancelled - Patient discharged Performed By: #### L 500.2500, L100.0500 ####[facility] [address] [place], [address] RDW SD Normal 35.1-43.9 [facility] Comment on above: Result Comment: Canc elled via OM: Order cancelled - Patient discharged Performed By: #### L 500.2500, L100.0500 ####[facility] [address] [place], [address] WBC Normal 4.4-11.0 [facility] Comment on above: Result Comment: Canc elled via OM: Order cancelled - Patient discharged Performed By: #### L 500.2500, L100.0500 ####[facility] [address] [place], [address] Basic Metabolic Profile (BMP )on 06-23-2024 BUN Normal 4-19 [facility] Comment on above: Result Comment: Canc elled via OM: Order cancelled - Patient discharged Performed By: #### L 100.0500, L500.2500 ####[facility] [address] [place], [address] BUN/CRE Normal - [facility] Comment on above: Result Comment: Canc elled via OM: Order cancelled - Patient discharged Performed By: #### L 100.0500, L500.2500 ####[facility] [address] [place], [address] Calcium Normal 7.6-11.0 [facility] Comment on above: Result Comment: Canc elled via OM: Order cancelled - Patient discharged Performed By: #### L 100.0500, L500.2500 ####[facility] [address] [place], [address] CL Normal 98-108 [facility] Comment on above: Result Comment: Canc elled via OM: Order cancelled - Patient discharged Performed By: #### L 100.0500, L500.2500 ####[facility] [address] [place], [address] CO2 Normal 21.0-32.0 [facility] Comment on above: Result Comment: Canc elled via OM: Order cancelled - Patient discharged Performed By: #### L 100.0500, L500.2500 ####[facility] [address] [place], [address] CREAT,SERUM Normal 0.70-1.20 [facility] Comment on above: Result Comment: Canc elled via OM: Order cancelled - Patient discharged Performed By: #### L 100.0500, L500.2500 ####[facility] [address] [place], [address] eGFR Normal >60 [facility] Comment on above: Result Comment: Canc elled via OM: Order cancelled - Patient discharged Performed By: #### L 100.0500, L500.2500 ####[facility] [address] [place], [address] GAP Normal 5-15 [facility] Comment on above: Result Comment: Canc elled via OM: Order cancelled - Patient discharged Performed By: #### L 100.0500, L500.2500 ####[facility] [address] [place], [address] GLU Normal 70-99 [facility] Comment on above: Result Comment: Canc elled via OM: Order cancelled - Patient discharged Performed By: #### L 100.0500, L500.2500 ####[facility] [address] [place], [address] Potassium Normal 3.3-5.1 [facility] Comment on above: Result Comment: Canc elled via OM: Order cancelled - Patient discharged Performed By: #### L 100.0500, L500.2500 ####[facility] [address] [place], [address] Basic Metabolic Profile (BMP) Normal 133-145 [facility] Comment on above: Result Comment: Canc elled via OM: Order cancelled - Patient discharged Performed By: #### L 100.0500, L500.2500 ####[facility] [address] [place], [address] CBC-Complete Blood Cnt No Di ffon 06-23-2024 HCT Normal 40-54 [facility] Comment on above: Result Comment: Canc elled via OM: Order cancelled - Patient discharged Performed By: #### L 100.0500, L500.2500 ####[facility] [address] [place], [address] HGB Normal 13.0-16.5 [facility] Comment on above: Result Comment: Canc elled via OM: Order cancelled - Patient discharged Performed By: #### L 100.0500, L500.2500 ####[facility] [address] [place], [address] MCH Normal 27.0-32.0 [facility] Comment on above: Result Comment: Canc elled via OM: Order cancelled - Patient discharged Performed By: #### L 100.0500, L500.2500 ####[facility] [address] [place], [address] MCHC Normal 32-36 [facility] Comment on above: Result Comment: Canc elled via OM: Order cancelled - Patient discharged Performed By: #### L 100.0500, L500.2500 ####[facility] [address] [place], [address] MCV Normal 80-94 [facility] Comment on above: Result Comment: Canc elled via OM: Order cancelled - Patient discharged Performed By: #### L 100.0500, L500.2500 ####[facility] [address] [place], [address] PLT Normal 150-450 [facility] Comment on above: Result Comment: Canc elled via OM: Order cancelled - Patient discharged Performed By: #### L 100.0500, L500.2500 ####[facility] [address] [place], [address] RBC Normal 4.6-6.2 [facility] Comment on above: Result Comment: Canc elled via OM: Order cancelled - Patient discharged Performed By: #### L 100.0500, L500.2500 ####[facility] [address] [place], [address] RDW CV Normal 11.6-14.6 [facility] Comment on above: Result Comment: Canc elled via OM: Order cancelled - Patient discharged Performed By: #### L 100.0500, L500.2500 ####[facility] [address] [place], [address] RDW SD Normal 35.1-43.9 [facility] Comment on above: Result Comment: Canc elled via OM: Order cancelled - Patient discharged Performed By: #### L 100.0500, L500.2500 ####[facility] [address] [place], [address] WBC Normal 4.4-11.0 [facility] Comment on above: Result Comment: Canc elled via OM: Order cancelled - Patient discharged Performed By: #### L 100.0500, L500.2500 ####[facility] [address] [place], [address] Basic Metabolic Profile (BMP )on 06-22-2024 BUN Normal - [facility] Comment on above: Result Comment: Canc elled via OM: Order cancelled - Patient discharged Performed By: #### L 100.0500, L500.2500 ####[facility] [address] [place], [address] BUN/CRE Normal - [facility] Comment on above: Result Comment: Canc elled via OM: Order cancelled - Patient discharged Performed By: #### L 100.0500, L500.2500 ####[facility] [address] [place], [address] Calcium Normal 7.6-11.0 [facility] Comment on above: Result Comment: Canc elled via OM: Order cancelled - Patient discharged Performed By: #### L 100.0500, L500.2500 ####[facility] [address] [place], [address] CL Normal 98-108 [facility] Comment on above: Result Comment: Canc elled via OM: Order cancelled - Patient discharged Performed By: #### L 100.0500, L500.2500 ####[facility] [address] [place], [address] CO2 Normal 21.0-32.0 [facility] Comment on above: Result Comment: Canc elled via OM: Order cancelled - Patient discharged Performed By: #### L 100.0500, L500.2500 ####[facility] [address] [place], [address] CREAT,SERUM Normal 0.70-1.20 [facility] Comment on above: Result Comment: Canc elled via OM: Order cancelled - Patient discharged Performed By: #### L 100.0500, L500.2500 ####[facility] [address] [place], [address] eGFR Normal >60 [facility] Comment on above: Result Comment: Canc elled via OM: Order cancelled - Patient discharged Performed By: #### L 100.0500, L500.2500 ####[facility] [address] [place], [address] GAP Normal 5-15 [facility] Comment on above: Result Comment: Canc elled via OM: Order cancelled - Patient discharged Performed By: #### L 100.0500, L500.2500 ####[facility] [address] [place], [address] GLU Normal 70-99 [facility] Comment on above: Result Comment: Canc elled via OM: Order cancelled - Patient discharged Performed By: #### L 100.0500, L500.2500 ####[facility] [address] [place], [address] Potassium Normal 3.3-5.1 [facility] Comment on above: Result Comment: Canc elled via OM: Order cancelled - Patient discharged Performed By: #### L 100.0500, L500.2500 ####[facility] [address] [place], [address] Basic Metabolic Profile (BMP) Normal 133-145 [facility] Comment on above: Result Comment: Canc elled via OM: Order cancelled - Patient discharged Performed By: #### L 100.0500, L500.2500 ####[facility] [address] [place], [address] CBC-Complete Blood Cnt No Di ffon 06-22-2024 HCT Normal 40-54 [facility] Comment on above: Result Comment: Canc elled via OM: Order cancelled - Patient discharged Performed By: #### L 100.0500, L500.2500 ####[facility] [address] [place], [address] HGB Normal 13.0-16.5 [facility] Comment on above: Result Comment: Canc elled via OM: Order cancelled - Patient discharged Performed By: #### L 100.0500, L500.2500 ####[facility] [address] [place], [address] MCH Normal 27.0-32.0 [facility] Comment on above: Result Comment: Canc elled via OM: Order cancelled - Patient discharged Performed By: #### L 100.0500, L500.2500 ####[facility] [address] [place], [address] MCHC Normal 32-36 [facility] Comment on above: Result Comment: Canc elled via OM: Order cancelled - Patient discharged Performed By: #### L 100.0500, L500.2500 ####[facility] [address] [place], [address] MCV Normal 80-94 [facility] Comment on above: Result Comment: Canc elled via OM: Order cancelled - Patient discharged Performed By: #### L 100.0500, L500.2500 ####[facility] [address] [place], [address] PLT Normal 150-450 [facility] Comment on above: Result Comment: Canc elled via OM: Order cancelled - Patient discharged Performed By: #### L 100.0500, L500.2500 ####[facility] [address] [place], [address] RBC Normal 4.6-6.2 [facility] Comment on above: Result Comment: Canc elled via OM: Order cancelled - Patient discharged Performed By: #### L 100.0500, L500.2500 ####[facility] [address] [place], [address] RDW CV Normal 11.6-14.6 [facility] Comment on above: Result Comment: Canc elled via OM: Order cancelled - Patient discharged Performed By: #### L 100.0500, L500.2500 ####[facility] [address] [place], [address] RDW SD Normal 35.1-43.9 [facility] Comment on above: Result Comment: Canc elled via OM: Order cancelled - Patient discharged Performed By: #### L 100.0500, L500.2500 ####[facility] [address] [place], [address] WBC Normal 4.4-11.0 [facility] Comment on above: Result Comment: Canc elled via OM: Order cancelled - Patient discharged Performed By: #### L 100.0500, L500.2500 ####[facility] [address] [place], [address] Basic Metabolic Profile (BMP )on 06-21-2024 BUN Normal 4-19 [facility] Comment on above: Result Comment: Canc elled via OM: Order cancelled - Patient discharged Performed By: #### L 500.2500, L100.0500 ####[facility] [address] [place], [address] BUN/CRE Normal 10-20 [facility] Comment on above: Result Comment: Canc elled via OM: Order cancelled - Patient discharged Performed By: #### L 500.2500, L100.0500 ####[facility] [address] [place], [address] Calcium Normal 7.6-11.0 [facility] Comment on above: Result Comment: Canc elled via OM: Order cancelled - Patient discharged Performed By: #### L 500.2500, L100.0500 ####[facility] [address] [place], [address] CL Normal 98-108 [facility] Comment on above: Result Comment: Canc elled via OM: Order cancelled - Patient discharged Performed By: #### L 500.2500, L100.0500 ####[facility] [address] [place], [address] CO2 Normal 21.0-32.0 [facility] Comment on above: Result Comment: Canc elled via OM: Order cancelled - Patient discharged Performed By: #### L 500.2500, L100.0500 ####[facility] [address] [place], [address] CREAT,SERUM Normal 0.70-1.20 [facility] Comment on above: Result Comment: Canc elled via OM: Order cancelled - Patient discharged Performed By: #### L 500.2500, L100.0500 ####[facility] [address] [place], [address] eGFR Normal >60 [facility] Comment on above: Result Comment: Canc elled via OM: Order cancelled - Patient discharged Performed By: #### L 500.2500, L100.0500 ####[facility] [address] [place], [address] GAP Normal 5-15 [facility] Comment on above: Result Comment: Canc elled via OM: Order cancelled - Patient discharged Performed By: #### L 500.2500, L100.0500 ####[facility] [address] [place], [address] GLU Normal 70-99 [facility] Comment on above: Result Comment: Canc elled via OM: Order cancelled - Patient discharged Performed By: #### L 500.2500, L100.0500 ####[facility] [address] [place], [address] Potassium Normal 3.3-5.1 [facility] Comment on above: Result Comment: Canc elled via OM: Order cancelled - Patient discharged Performed By: #### L 500.2500, L100.0500 ####[facility] [address] [place], [address] Basic Metabolic Profile (BMP) Normal 133-145 [facility] Comment on above: Result Comment: Canc elled via OM: Order cancelled - Patient discharged Performed By: #### L 500.2500, L100.0500 ####[facility] [address] [place], [address] CBC-Complete Blood Cnt No Di ffon 06-21-2024 HCT Normal 40-54 [facility] Comment on above: Result Comment: Canc elled via OM: Order cancelled - Patient discharged Performed By: #### L 500.2500, L100.0500 ####[facility] [address] [place], [address] HGB Normal 13.0-16.5 [facility] Comment on above: Result Comment: Canc elled via OM: Order cancelled - Patient discharged Performed By: #### L 500.2500, L100.0500 ####[facility] [address] [place], [address] MCH Normal 27.0-32.0 [facility] Comment on above: Result Comment: Canc elled via OM: Order cancelled - Patient discharged Performed By: #### L 500.2500, L100.0500 ####[facility] [address] [place], [address] MCHC Normal 32-36 [facility] Comment on above: Result Comment: Canc elled via OM: Order cancelled - Patient discharged Performed By: #### L 500.2500, L100.0500 ####[facility] [address] [place], [address] MCV Normal 80-94 [facility] Comment on above: Result Comment: Canc elled via OM: Order cancelled - Patient discharged Performed By: #### L 500.2500, L100.0500 ####[facility] [address] [place], [address] PLT Normal 150-450 [facility] Comment on above: Result Comment: Canc elled via OM: Order cancelled - Patient discharged Performed By: #### L 500.2500, L100.0500 ####[facility] [address] [place], [address] RBC Normal 4.6-6.2 [facility] Comment on above: Result Comment: Canc elled via OM: Order cancelled - Patient discharged Performed By: #### L 500.2500, L100.0500 ####[facility] [address] [place], [address] RDW CV Normal 11.6-14.6 [facility] Comment on above: Result Comment: Canc elled via OM: Order cancelled - Patient discharged Performed By: #### L 500.2500, L100.0500 ####[facility] [address] [place], [address] RDW SD Normal 35.1-43.9 [facility] Comment on above: Result Comment: Canc elled via OM: Order cancelled - Patient discharged Performed By: #### L 500.2500, L100.0500 ####[facility] [address] [place], [address] WBC Normal 4.4-11.0 [facility] Comment on above: Result Comment: Canc elled via OM: Order cancelled - Patient discharged Performed By: #### L 500.2500, L100.0500 ####[facility] [address] [place], [address] Anion gap in Serum or Plasma Ordered By: Donna Wolff on 06-20-2024 Anion gap [Moles/Vol] 14 mmol/L 5-15 [facility] BUN/creatinine ratioOrdered By: Donna Wolff on 06-20-2024 Urea nitrogen/Creatinine [Mass ratio] 27.2 mg/mg High 10-20 [facility] Basic Metabolic Profile (BMP )on 06-20-2024 BUN/CRE 27.2 RATIO High -20 [facility] Comment on above: Performed By: #### L 500.2500, L100.0500 ####[facility] [address] [place], [address] Calcium [Mass/Vol] 9.5 mg/dL Normal 7.6-11.0 [facility] Comment on above: Performed By: #### L 500.2500, L100.0500 ####[facility] [address] [place], [address] Chloride [Moles/Vol] 100 mmol/L Normal 98-108 [facility] Comment on above: Performed By: #### L 500.2500, L100.0500 ####[facility] [address] [place], [address] CO2 [Moles/Vol] 24.8 mmol/L Normal 21.0-32.0 [facility] Comment on above: Performed By: #### L 500.2500, L100.0500 ####[facility] [address] [place], [address] Creatinine [Mass/Vol] 1.07 mg/dL Normal 0.70-1.20 [facility] Comment on above: Performed By: #### L 500.2500, L100.0500 ####[facility] [address] [place], [address] ECRCL 74.28 ml/min Normal 50-250 [facility] Comment on above: Performed By: #### L 500.2500, L100.0500 ####[facility] [address] [place], [address] GAP 14 Normal 5-15 [facility] Comment on above: Performed By: #### L 500.2500, L100.0500 ####[facility] [address] [place], [address] GFR/1.73 sq M.predicted among non-blacks MDRD (S/P/Bld) [Vol rate/Area] 77 mL/min/{1.73_m2} Normal >60 [facility] Comment on above: Result Comment: mL/m in/1.73m2 CKD-EPI Creatinine Equation (2020) Performed By: #### L 500.2500, L100.0500 ####[facility] [address] [place], [address] Glucose [Mass/Vol] 110 mg/dL High 70-99 [facility] Comment on above: Performed By: #### L 500.2500, L100.0500 ####[facility] [address] [place], [address] Potassium [Moles/Vol] 3.8 mmol/L Normal 3.3-5.1 [facility] Comment on above: Performed By: #### L 500.2500, L100.0500 ####[facility] [address] [place], [address] Sodium [Moles/Vol] 138 mmol/L Normal 133-145 [facility] Comment on above: Performed By: #### L 500.2500, L100.0500 ####[facility] [address] [place], [address] Urea nitrogen [Mass/Vol] 29 mg/dL High 4-19 [facility] Comment on above: Performed By: #### L 500.2500, L100.0500 ####[facility] [address] [place], [address] Bedside Glucoseon 06-20-2024 FINGERSTICK GLU 127 mg/dL High 74-106 [facility] Comment on above: Result Comment: SNEHA DUNCAN OF PATIENT CARE PER NURSING PROTOCOL Performed By: #### L 501.080 ####[facility] [address] [place], [address] CBC-Complete Blood Cnt No Di ffon 06-20-2024 Erythrocyte distribution width (RBC) [Ratio] 13.0 % Normal 11.6-14.6 [facility] Comment on above: Performed By: #### L 500.2500, L100.0500 ####[facility] [address] [place], [address] Hematocrit (Bld) [Volume fraction] 50.5 % Normal 40-54 [facility] Comment on above: Performed By: #### L 500.2500, L100.0500 ####[facility] [address] [place], [address] Hemoglobin (Bld) [Mass/Vol] 16.8 g/dL High 13.0-16.5 [facility] Comment on above: Performed By: #### L 500.2500, L100.0500 ####[facility] [address] [place], [address] MCH (RBC) [Entitic mass] 30.8 pg Normal 27.0-32.0 [facility] Comment on above: Performed By: #### L 500.2500, L100.0500 ####[facility] [address] [place], [address] MCHC (RBC) [Mass/Vol] 33.3 g/dL Normal 32-36 [facility] Comment on above: Performed By: #### L 500.2500, L100.0500 ####[facility] [address] [place], [address] MCV (RBC) [Entitic vol] 92.5 fL Normal 80-94 [facility] Comment on above: Performed By: #### L 500.2500, L100.0500 ####[facility] [address] [place], [address] Platelet mean volume (Bld) [Entitic vol] 10.1 fL Normal 6.2-12.0 [facility] Comment on above: Performed By: #### L 500.2500, L100.0500 ####[facility] [address] [place], [address] Platelets (Bld) [#/Vol] 295 10*3/uL Normal 150-450 [facility] Comment on above: Performed By: #### L 500.2500, L100.0500 ####[facility] [address] [place], [address] RBC (Bld) [#/Vol] 5.46 10*6/uL Normal 4.6-6.2 [facility] Comment on above: Performed By: #### L 500.2500, L100.0500 ####[facility] [address] [place], [address] RDW SD 43.8 fl Normal 35.1-43.9 [facility] Comment on above: Performed By: #### L 500.2500, L100.0500 ####[facility] [address] [place], [address] WBC (Bld) [#/Vol] 14.2 10*3/uL High 4.4-11.0 [facility] Comment on above: Performed By: #### L 500.2500, L100.0500 ####[facility] [address] [place], [address] Carbon dioxide, total [Moles /volume] in Central venous bloodOrdered By: Donna Wolff on 06-20-2024 CO2 [Moles/Vol] 24.8 mmol/L 21.0-32.0 [facility] Chloride assayOrdered By: Nilson Wolff on 06-20-2024 Chloride [Moles/Vol] 100 mmol/L 98-108 [facility] Discharge Instructionon 06-04 Discharge Instruction Normal [facility] Erythrocyte distribution wid th ratioOrdered By: Donna Wolff on 06-20-2024 Erythrocyte distribution width (RBC) [Ratio] 13.0 % 11.6-14.6 [facility] Erythrocyte distribution wid th standard deviationOrdered By: Donna Wolff on 06-20-2024 Erythrocyte distribution width (RBC) [Ratio] 43.8 fl 35.1-43.9 [facility] Glomerular filtration rate ( GFR) estimation/1.73 sq m using serum, plasma, or whole bOrdered By: Donna Wolff on 06-20-2024 GFR/1.73 sq M.predicted among non-blacks MDRD (S/P/Bld) [Vol rate/Area] 77 mL/min/{1.73_m2} >60 [facility] By: Donna Wolff on 06-20-2024 Glucose [Mass/Vol] 127 mg/dL High 74-106 [facility] Hematocrit Auto (Bld) [Volum e fraction]Ordered By: Donna Wolff on 06-20-2024 Hematocrit (Bld) [Volume fraction] 50.5 % 40-54 [facility] Hemoglobin measurementOrdere d By: Donna Wolff on 06-20-2024 Hemoglobin (Bld) [Mass/Vol] 16.8 g/dL High 13.0-16.5 [facility] MCV (mean corpuscular volume ) determinationOrdered By: Donna Wolff on 06-20-2024 MCV (RBC) [Entitic vol] 92.5 fL 80-94 [facility] Mean corpuscular hemoglobin (MCH) determinationOrdered By: Donna Wolff on 06-20-2024 MCH (RBC) [Entitic mass] 30.8 pg 27.0-32.0 [facility] Platelet countOrdered By: Nilson Wolff on 06-20-2024 Platelets (Bld) [#/Vol] 295 10*3/uL 150-450 [facility] Potassium measurement (mass/ volume)Ordered By: Donna Wolff on 06-20-2024 Potassium (Unsp spec) [Mass/Vol] 3.8 mmol/L 3.3-5.1 [facility] RBC Auto (Bld) [#/Vol]Ordere d By: Donna Wolff on 06-20-2024 RBC (Bld) [#/Vol] 5.46 10*6/uL 4.6-6.2 [facility] Serum creatinine measurement (mass/volume)Ordered By: Donna Wolff on 06-20-2024 Creatinine [Mass/Vol] 1.07 mg/dL 0.70-1.20 [facility] Serum glucose measurement (m ass/volume)Ordered By: Donna Wolff on 06-20-2024 Glucose [Mass/Vol] 110 mg/dL High 70-99 [facility] Serum or plasma calcium brenda urement (mass/volume)Ordered By: Donna Wolff on 06-20-2024 Calcium [Mass/Vol] 9.5 mg/dL 7.6-11.0 [facility] Serum or plasma urea nitroge n measurement (mass/volume)Ordered By: Donna Wolff on 06-20-2024 Urea nitrogen [Mass/Vol] 29 mg/dL High 4-19 [facility] Sodium levelOrdered By: Gretta Wolff on 06-20-2024 Sodium [Moles/Vol] 138 mmol/L 133-145 [facility] Stress Reporton 06-20-2024 Stress Report Normal [facility] White blood cell (WBC) count Ordered By: Donna Wolff on 06-20-2024 WBC (Bld) [#/Vol] 14.2 10*3/uL High 4.4-11.0 [facility] Absolute lymphocyte countOrd ered By: Steve Donald on 06-19-2024 Lymphocytes Auto (Unsp spec) [#/Vol] 1.12 10*3/uL 0.83-4.51 [facility] Automated lymphocyte count a s percentage of total leukocytesOrdered By: Steve Donald on 06-19-2024 Lymphocytes/100 WBC Auto (Unsp spec) 9.8 % Low 19-41 [facility] Basophil percentageOrdered B y: Steve Donald on 06-19-2024 Basophils/100 WBC (Bld) 0.1 % 0-1 [facility] Bedside Glucoseon 06-19-2024 FINGERSTICK GLU 220 mg/dL High [address] [facility] Comment on above: Result Comment: SNEHA GEMENT OF PATIENT CARE PER NURSING PROTOCOL Performed By: #### L 501.080 ####[facility] [address] [place], [address] FINGERSTICK GLU 431 mg/dL High [address] [place] [address] Comment on above: Result Comment: SNEHA GEMENT OF PATIENT CARE PER NURSING PROTOCOL Performed By: #### L 501.080 ####[facility] [address] [place], [address] FINGERSTICK GLU 387 mg/dL High [address] [place] [address] Comment on above: Result Comment: SNEHA GEMENT OF PATIENT CARE PER NURSING PROTOCOL Performed By: #### L 501.080 ####[facility] [address] [place], [address] FINGERSTICK GLU 292 mg/dL High [address] [place] [address] Comment on above: Result Comment: SNEHA GEMENT OF PATIENT CARE PER NURSING PROTOCOL Performed By: #### L 501.080 ####[facility] [address] [place], [address] Bilirubin, totalOrdered By: Steve Donald on 06-19-2024 Bilirubin [Mass/Vol] 0.63 mg/dL 0.00-1.30 [facility] CBC W/Diff, Automatedon 06-04 Absolute Lymph 1.12 X10 3/uL Normal 0.83-4.51 [facility] Comment on above: Performed By: #### L 500.4050, L501.2300, L501.9985, L100.0100 ####[facility] [address] [place], [address] Absolute Neut 9.8 X10 3/uL High 2.0-7.7 [facility] Comment on above: Performed By: #### L 500.4050, L501.2300, L501.9985, L100.0100 ####[facility] [address] [place], [address] Basophils/100 WBC (Bld) 0.1 % Normal 0-1 [facility] Comment on above: Performed By: #### L 500.4050, L501.2300, L501.9985, L100.0100 ####[facility] [address] [place], [address] Eosinophils/100 WBC (Bld) 0.0 % Normal 0-5 [facility] Comment on above: Performed By: #### L 500.4050, L501.2300, L501.9985, L100.0100 ####[facility] [address] [place], [address] Erythrocyte distribution width (RBC) [Ratio] 12.8 % Normal 11.6-14.6 [facility] Comment on above: Performed By: #### L 500.4050, L501.2300, L501.9985, L100.0100 ####[facility] [address] [place], [address] Hematocrit (Bld) [Volume fraction] 49.9 % Normal 40-54 [facility] Comment on above: Performed By: #### L 500.4050, L501.2300, L501.9985, L100.0100 ####[facility] [address] [place], [address] Hemoglobin (Bld) [Mass/Vol] 16.8 g/dL High 13.0-16.5 [facility] Comment on above: Performed By: #### L 500.4050, L501.2300, L501.9985, L100.0100 ####[facility] [address] [place], [address] IG% 0.700 Normal 0.0-0.9 [facility] Comment on above: Result Comment: IG% - Immature Granulocytes (promyelocytes, myelocytes andmetamyelocytes) > 1% indicates that a LEFT SHIFT is Present. Performed By: #### L 500.4050, L501.2300, L501.9985, L100.0100 ####[facility] [address] [place], [address] Lymphocytes/100 WBC (Bld) 9.8 % Low 19-41 [facility] Comment on above: Performed By: #### L 500.4050, L501.2300, L501.9985, L100.0100 ####[facility] [address] [place], [address] MCH (RBC) [Entitic mass] 31.3 pg Normal 27.0-32.0 [facility] Comment on above: Performed By: #### L 500.4050, L501.2300, L501.9985, L100.0100 ####[facility] [address] [place], [address] MCHC (RBC) [Mass/Vol] 33.7 g/dL Normal 32-36 [facility] Comment on above: Performed By: #### L 500.4050, L501.2300, L501.9985, L100.0100 ####[facility] [address] [place], [address] MCV (RBC) [Entitic vol] 92.9 fL Normal 80-94 [facility] Comment on above: Performed By: #### L 500.4050, L501.2300, L501.9985, L100.0100 ####[facility] [address] [place], [address] Monocytes/100 WBC (Bld) 3.2 % Normal 0-10 [facility] Comment on above: Performed By: #### L 500.4050, L501.2300, L501.9985, L100.0100 ####[facility] [address] [place], [address] Neutrophils/100 WBC (Bld) 86.2 % High 47-70 [facility] Comment on above: Performed By: #### L 500.4050, L501.2300, L501.9985, L100.0100 ####[facility] [address] [place], [address] Nucleated RBC (Bld) [#/Vol] 0 10*3/uL Normal 0-5 [facility] Comment on above: Performed By: #### L 500.4050, L501.2300, L501.9985, L100.0100 ####[facility] [address] [place], [address] Platelet mean volume (Bld) [Entitic vol] 10.4 fL Normal 6.2-12.0 [facility] Comment on above: Performed By: #### L 500.4050, L501.2300, L501.9985, L100.0100 ####[facility] [address] [place], [address] Platelets (Bld) [#/Vol] 290 10*3/uL Normal 150-450 [facility] Comment on above: Performed By: #### L 500.4050, L501.2300, L501.9985, L100.0100 ####[facility] [address] [place], [address] RBC (Bld) [#/Vol] 5.37 10*6/uL Normal 4.6-6.2 [facility] Comment on above: Performed By: #### L 500.4050, L501.2300, L501.9985, L100.0100 ####[facility] [address] [place], [address] RDW SD 43.8 fl Normal 35.1-43.9 [facility] Comment on above: Performed By: #### L 500.4050, L501.2300, L501.9985, L100.0100 ####[facility] [address] [place], [address] WBC (Bld) [#/Vol] 11.4 10*3/uL High 4.4-11.0 [facility] Comment on above: Performed By: #### L 500.4050, L501.2300, L501.9985, L100.0100 ####[facility] [address] [place], [address] Chest 1 View (Portable)on Chest 1 View (Portable) Normal [facility] Comprehensive Metabolic Prof ilon 06-19-2024 GAP 17 High 5-15 [facility] Comment on above: Performed By: #### L 500.4050, L501.2300, L501.9985, L100.0100 ####[facility] [address] [place], [address] Albumin [Mass/Vol] 4.1 g/dL Normal 3.4-4.8 [facility] Comment on above: Performed By: #### L 500.4050, L501.2300, L501.9985, L100.0100 ####[facility] [address] [place], [address] Albumin/Globulin [Mass ratio] 1.2 {ratio} Normal 0.9-2.4 [facility] Comment on above: Performed By: #### L 500.4050, L501.2300, L501.9985, L100.0100 ####[facility] [address] [place], [address] ALK PHOS 89 U/L Normal 40-129 [facility] Comment on above: Performed By: #### L 500.4050, L501.2300, L501.9985, L100.0100 ####[facility] [address] [place], [address] ALT [Catalytic activity/Vol] 38 U/L Normal <=46 [facility] Comment on above: Performed By: #### L 500.4050, L501.2300, L501.9985, L100.0100 ####[facility] [address] [place], [address] AST [Catalytic activity/Vol] 26 U/L Normal <=37 [facility] Comment on above: Performed By: #### L 500.4050, L501.2300, L501.9985, L100.0100 ####[facility] [address] [place], [address] Bilirubin [Mass/Vol] 0.63 mg/dL Normal 0.00-1.30 [facility] Comment on above: Performed By: #### L 500.4050, L501.2300, L501.9985, L100.0100 ####[facility] [address] [place], [address] BUN/CRE 24.5 RATIO High 10-20 [facility] Comment on above: Performed By: #### L 500.4050, L501.2300, L501.9985, L100.0100 ####[facility] [address] [place], [address] Calcium [Mass/Vol] 9.6 mg/dL Normal 7.6-11.0 [facility] Comment on above: Performed By: #### L 500.4050, L501.2300, L501.9985, L100.0100 ####[facility] [address] [place], [address] Chloride [Moles/Vol] 97 mmol/L Low 98-108 [facility] Comment on above: Performed By: #### L 500.4050, L501.2300, L501.9985, L100.0100 ####[facility] [address] [place], [address] CO2 [Moles/Vol] 19.8 mmol/L Low 21.0-32.0 [facility] Comment on above: Performed By: #### L 500.4050, L501.2300, L501.9985, L100.0100 ####[facility] [address] [place], [address] Creatinine [Mass/Vol] 1.12 mg/dL Normal 0.70-1.20 [facility] Comment on above: Performed By: #### L 500.4050, L501.2300, L501.9985, L100.0100 ####[facility] [address] [place], [address] ECRCL 70.97 ml/min Normal 50-250 [facility] Comment on above: Performed By: #### L 500.4050, L501.2300, L501.9985, L100.0100 ####[facility] [address] [place], [address] GFR/1.73 sq M.predicted among non-blacks MDRD (S/P/Bld) [Vol rate/Area] 73 mL/min/{1.73_m2} Normal >60 [facility] Comment on above: Result Comment: mL/m in/1.73m2 CKD-EPI Creatinine Equation (2020) Performed By: #### L 500.4050, L501.2300, L501.9985, L100.0100 ####[facility] [address] [place], [address] Globulin (S) [Mass/Vol] 3.5 g/dL Normal 2.2-4.2 [facility] Comment on above: Performed By: #### L 500.4050, L501.2300, L501.9985, L100.0100 ####[facility] [address] [place], [address] Glucose [Mass/Vol] 324 mg/dL High 70-99 [facility] Comment on above: Performed By: #### L 500.4050, L501.2300, L501.9985, L100.0100 ####[facility] [address] [place], [address] Potassium [Moles/Vol] 4.3 mmol/L Normal 3.3-5.1 [facility] Comment on above: Performed By: #### L 500.4050, L501.2300, L501.9985, L100.0100 ####[facility] [address] [place], [address] Sodium [Moles/Vol] 134 mmol/L Normal 133-145 [facility] Comment on above: Performed By: #### L 500.4050, L501.2300, L501.9985, L100.0100 ####[facility] [address] [place], [address] T PROT 7.6 g/dL Normal 5.9-8.4 [facility] Comment on above: Performed By: #### L 500.4050, L501.2300, L501.9985, L100.0100 ####[facility] [address] [place], [address] Urea nitrogen [Mass/Vol] 27 mg/dL High 4-19 [facility] Comment on above: Performed By: #### L 500.4050, L501.2300, L501.9985, L100.0100 ####[facility] [address] [place], [address] Eosinophil percentageOrdered By: Steve Donald on 06-19-2024 Eosinophils/100 WBC (Bld) 0.0 % 0-5 [facility] Hemoglobin A1con 06-19-2024 HbA1c (Bld) [Mass fraction] 12.4 % Normal <=5.6 [facility] Comment on above: Performed By: #### L 500.4050, L501.2300, L501.9985, L100.0100 ####[facility] [address] [place], [address] Hemoglobin A1c percentageOrd ered By: Steve Donald on 06-19-2024 HbA1c (Bld) [Mass fraction] 12.4 % >5.7 [facility] Immature granulocytes/100 WB C Auto (Bld)Ordered By: Steve Donald on 06-19-2024 Immature granulocytes/100 WBC (Bld) 0.700 % 0.0-0.9 [facility] Monocyte percentageOrdered B y: Steve Donald on 06-19-2024 Monocytes/100 WBC (Bld) 3.2 % 0-10 [facility] Neutrophil percentageOrdered By: Steve Donald on 06-19-2024 Neutrophils/100 WBC (Bld) 86.2 % High 47-70 [facility] No Panel InformationOrdered By: Steve Donald on 06-19-2024 26 U/L <38 [facility] Phosphoruson 06-19-2024 Phosphate [Mass/Vol] 4.4 mg/dL Normal 2.7-4.5 [facility] Comment on above: Performed By: #### L 500.4050, L501.2300, L501.9985, L100.0100 ####[facility] [address] [place], [place], [address] Serum globulin measurementOr dered By: Steve Donald on 06-19-2024 Globulin (S) [Mass/Vol] 3.5 g/dL 2.2-4.2 [facility] Serum or plasma alanine martino otransferase (ALT) measurementOrdered By: Steve Donald on 06-19-2024 ALT [Catalytic activity/Vol] 38 U/L <47 [facility] Serum or plasma albumin brenda urement (mass/volume)Ordered By: Steve Donald on 06-19-2024 Albumin [Mass/Vol] 4.1 g/dL 3.4-4.8 [facility] Serum or plasma albumin/glob ulin mass ratioOrdered By: Steve Donald on 06-19-2024 Albumin/Globulin [Mass ratio] 1.2 {ratio} 0.9-2.4 [facility] Serum or plasma alkaline yulia sphatase measurementOrdered By: Steve Donald on 06-19-2024 ALP [Catalytic activity/Vol] 89 U/L 40-129 [facility] Total proteinOrdered By: Sidney Donald on 06-19-2024 Protein [Mass/Vol] 7.6 g/dL 5.9-8.4 [facility] Assessment of wrist artery p atency prior to arterial punctureOrdered By: Steve Donald on 06-18-2024 Arterial patency Wrist artery --pre arterial puncture Positive [facility] Bedside Glucoseon 06-18-2024 FINGERSTICK GLU 434 mg/dL High 74-106 [facility] Comment on above: Result Comment: SNEHA DUNCAN OF PATIENT CARE PER NURSING PROTOCOL Performed By: #### L 501.080 ####[facility] [address] [place], [place], [id number] FINGERSTICK GLU 429 mg/dL High 74-106 [facility] Comment on above: Result Comment: Dr Manjit solis FollowedMANAGEMENT OF PATIENT CARE PER NURSING PROTOCOL Performed By: #### L 501.080 ####[facility] [address] [place], [address] FINGERSTICK GLU 321 mg/dL High 74-106 [facility] Comment on above: Result Comment: SNEHA GEMMT OF PATIENT CARE PER NURSING PROTOCOL Performed By: #### L 501.080 ####[facility] [address] [place], [address] FINGERSTICK GLU 282 mg/dL High 74-106 [facility] Comment on above: Result Comment: SNEHA GEMENT OF PATIENT CARE PER NURSING PROTOCOL Performed By: #### L 501.080 ####[facility] [address] [place], [address] Bilirubin Test strip Ql (U)O rdered By: Steve Donald on 06-18-2024 Bilirubin Ql (U) Negative Negative [facility] Blood Gases by CPSon 025 MOY TEST Positive Normal [facility] Comment on above: Performed By: #### L 9000.0800 ####[facility] [address] [place], [address] Base excess Calc (Bld) [Moles/Vol] 2 mmol/L Normal -2 to +2 [facility] Comment on above: Performed By: #### L 9000.0800 ####[facility] [address] [place], [address] Blood Gas Type ART Normal [facility] Comment on above: Performed By: #### L 9000.0800 ####[facility] [address] [place], [address] CO2 [Moles/Vol] 28 mmol/L Normal [facility] Comment on above: Performed By: #### L 9000.0800 ####[facility] [address] [place], [address] Comment 17/11 12 30% Normal [facility] Comment on above: Performed By: #### L 9000.0800 ####[facility] [address] [place], [address] FI02 30.0 Normal [facility] Comment on above: Performed By: #### L 9000.0800 ####[facility] [address] [place], [address] HCO3 (Bld) [Moles/Vol] 26.7 mmol/L High 22-26 [facility] Comment on above: Performed By: #### L 9000.0800 ####[facility] [address] [place], [address] Mode Not entered Normal [facility] Comment on above: Performed By: #### L 9000.0800 ####[facility] [address] [place], [address] O2 Delivery Dev BiPAP Normal [facility] Comment on above: Performed By: #### L 9000.0800 ####[facility] [address] [place], [address] pCO2 41.5 mmHg Normal 35-45 [facility] Comment on above: Performed By: #### L 9000.0800 ####[facility] [address] [place], [address] pH (Bld) 7.42 [pH] Normal 7.35-7.45 [facility] Comment on above: Performed By: #### L 9000.0800 ####[facility] [address] [place], [address] PO2 73 mmHG Low 75-100 [facility] Comment on above: Performed By: #### L 9000.0800 ####[facility] [address] [place], [address] SITE R Radial Normal [facility] Comment on above: Performed By: #### L 9000.0800 ####[facility] [address] [place], [place], [id number] SO2 95 Normal 95-99 [facility] Comment on above: Performed By: #### L 9000.0800 ####[facility] [address] [place], [place], [address] Blood base excess determinat ionOrdered By: Steve Donald on 06-18-2024 Base excess Calc (BldV) [Moles/Vol] 2 mmol/L -2-2 [facility] Blood bicarbonate measuremen tOrdered By: Steve Donald on 06-18-2024 HCO3 (Bld) [Moles/Vol] 26.7 mmol/L High 22-26 [facility] CTA Chest W/WO Contraston CTA Chest W/WO Contrast Normal [facility] Consultation - Cardiologyon 06-18-2024 Consultation - Cardiology Normal [facility] Echo Complete W/ Contraston 06-18-2024 Echo Complete W/ Contrast Normal [facility] Emergency Department Summary on 06-18-2024 Emergency Department Summary Normal [facility] H AND P Exam - Hospitaliston 06-18-2024 H&P Exam - Hospitalist Normal [facility] Influenza virus A and B and SARS-CoV-2 (COVID-19) and Respiratory syncytial virus RNAOrdered By: Jevon Osorio on 06-18-2024 SARS-CoV-2 (COVID-19) RNA HAYDER+probe Ql (Unsp spec) [facility] Ketones Test strip Ql (U)Ord ered By: Steve Donald on 06-18-2024 Ketones Ql (U) Negative Negative [facility] L499.0042on 06-18-2024 Trop T High Sen 84 ng/L Invalid Interpretation Code <=22 [facility] Comment on above: Result Comment: Crit ical Result(s) Called at: 0219 by:??NBURNS TO EFINKResults read back by same. Performed By: #### L 499.0042 ####[facility] [address] [place], [address] L499.0043on 06-18-2024 Trop T High Sen 88 ng/L Invalid Interpretation Code <=22 [facility] Comment on above: Result Comment: Crit ical Result(s) Called at 0334: by: NARAYAN LUIS??Results read back by same. Performed By: #### L 499.0043 ####[facility] [address] [place], [address] L503.7505on 06-18-2024 Natriuretic peptide B (Bld) [Mass/Vol] 2490 pg/mL High <=900 [facility] Comment on above: Result Comment: Hear t Failure Unlikely: < 300 pg/mLHeart Failure Likely< 50 Years: > 450 pg/mL50-75 Years: > 900 pg/mL>75 Years: > 1800 pg/mL Performed By: #### L 503.7505 ####[facility] [address] [place], [address] M100.678on 06-18-2024 M100.678 SARS-CoV-2 (COVID 19 ) Negative INFLUENZA A Negative INFLUENZA B Negative RSV PCR Negative Normal [facility] Comment on above: Performed By: #### M 100.678 ####[facility] [address] [place], [address] Magnesiumon 06-18-2024 Magnesium [Mass/Vol] 2.0 mg/dL Normal 1.5-2.2 [facility] Comment on above: Performed By: #### L 501.9520, L501.5200 ####[facility] [address] [place], [address] Magnesium measurement (mass/ volume)Ordered By: Steve Donald on 06-18-2024 Magnesium (Unsp spec) [Mass/Vol] 2.0 mg/dL 1.5-2.2 [facility] Measurement, pHOrdered By: Jovana Donald on 06-18-2024 pH (Unsp spec) 7.42 [pH] 7.35-7.45 [facility] Mucus LM Ql (Urine sed)Order ed By: Steve Donald on 06-18-2024 Mucus Ql (Urine sed) 0 SEEN /hpf [facility] Nitrite Test strip Ql (U)Ord ered By: Steve Donald on 06-18-2024 Nitrite Ql (U) Negative Negative [facility] No Panel InformationOrdered By: Steve Donald on 06-18-2024 ART [facility] R Radial [facility] Not entered [facility] BiPAP [facility] 17/11 12 30% [facility] Protein Test strip Ql (U)Ord ered By: Steve Donald on 06-18-2024 Protein Ql (U) Negative Negative [facility] RESPIRATORY PANEL MOLECULARo n 06-18-2024 RP PANEL Normal [facility] Comment on above: Performed By: #### M 100.638 ####[facility] [address] [place], [place], [address] Respiratory pathogens detect ion panel by molecular detection methodOrdered By: Steve Donald on 06-18-2024 Respiratory pathogens DNA and RNA panel HAYDER+probe (Resp) [facility] Squamous epithelial cells de tection in urine sediment by light microscopyOrdered By: Steve Donald on 06-18-2024 Epithelial cells.squamous LM Ql (Urine sed) 0-5 SEEN /hpf 0-5 [facility] TSH DL <= 0.005 mIU/L QnOrde red By: Steve Donald on 06-18-2024 TSH Qn 0.897 uIU/mL 0.300-4.200 [facility] Thyroid Stim Hormone (TSH)on 06-18-2024 TSH 0.897 uIU/mL Normal 0.300-4.200 [facility] Comment on above: Performed By: #### L 501.9520, L501.5200 ####[facility] [address] [place], [address] Total carbon dioxide measure mentOrdered By: Steve Donald on 06-18-2024 CO2 [Moles/Vol] 28 mmol/L [facility] Troponin T.cardiac [Mass/vol ume] in Serum or Plasma by High sensitivity methodOrdered By: Jevon Osorio on 06-18-2024 Troponin T.cardiac High sensitivity method [Mass/Vol] 88 ng/L High <22 [facility] Troponin T.cardiac High sensitivity method [Mass/Vol] 84 ng/L High <22 [facility] Urinalysis, Completeon 06-18 BACTERIA RARE Normal None Seen [facility] Comment on above: Order Comment: CLEAN CATCH Performed By: #### L 400.0001 ####[facility] [address] [place], [address] EPI,SQUAMOUS 0-5 SEEN Normal 0-5 [facility] Comment on above: Order Comment: CLEAN CATCH Performed By: #### L 400.0001 ####[facility] [address] [facility] [address] RBC 0 SEEN Normal 0-5 [facility] Comment on above: Order Comment: CLEAN CATCH Performed By: #### L 400.0001 ####[facility] [address] [place], [address] WBC 0-5 SEEN Normal 0-5 [facility] Comment on above: Order Comment: CLEAN CATCH Performed By: #### L 400.0001 ####[facility] [address] [facility] [address] BILIRUBIN URINE Negative Normal Negative [facility] Comment on above: Order Comment: CLEAN CATCH Performed By: #### L 400.0001 ####[facility] [address] [place], [address] Clarity (U) Clear Normal Clear [facility] Comment on above: Order Comment: CLEAN CATCH Performed By: #### L 400.0001 ####[facility] [address] [place], [address] Color (U) Yellow Normal Yellow [facility] Comment on above: Order Comment: CLEAN CATCH Performed By: #### L 400.0001 ####[facility] [address] [place], [address] GLUCOSE, UR 1000 mg/dl Abnormal Normal [facility] Comment on above: Order Comment: CLEAN CATCH Performed By: #### L 400.0001 ####[facility] [address] [place], [address] KETONE UR Negative Normal Negative [facility] Comment on above: Order Comment: CLEAN CATCH Performed By: #### L 400.0001 ####[facility] [address] [place], [address] LEUK ESTERASE Negative Normal Negative [facility] Comment on above: Order Comment: CLEAN CATCH Performed By: #### L 400.0001 ####[facility] [address] [place], [address] Nitrite Ql (U) Negative Normal Negative [facility] Comment on above: Order Comment: CLEAN CATCH Performed By: #### L 400.0001 ####[facility] [address] [place], [address] OCCULT BLOOD-UR Negative Normal Negative [facility] Comment on above: Order Comment: CLEAN CATCH Performed By: #### L 400.0001 ####[facility] [address] [place], [address] pH UR 6.0 Normal 5.0 - 8.0 [facility] Comment on above: Order Comment: CLEAN CATCH Performed By: #### L 400.0001 ####[facility] [address] [place], [address] PROT DIPSTX Negative Normal Negative [facility] Comment on above: Order Comment: CLEAN CATCH Performed By: #### L 400.0001 ####[facility] [address] [place], [address] SP.GR. DIPSTX 1.010 Normal 1.002-1.030 [facility] Comment on above: Order Comment: CLEAN CATCH Performed By: #### L 400.0001 ####[facility] [address] [place], [address] UROBILI Normal Normal Normal [facility] Comment on above: Order Comment: CLEAN CATCH Performed By: #### L 400.0001 ####[facility] [address] [place], [address] Mucus Ql (Urine sed) 0 SEEN Normal [facility] Comment on above: Order Comment: CLEAN CATCH Performed By: #### L 400.0001 ####[facility] [address] [place], [place], [address] Urine clarityOrdered By: Sidney Donald on 06-18-2024 Clarity (U) Clear Clear [facility] Urine color determinationOrd ered By: Steve Donald on 06-18-2024 Color (U) Yellow Yellow [facility] Urine glucose detectionOrder ed By: Steve Donald on 06-18-2024 Glucose Ql (U) 1000 mg/dl High Normal [facility] Urine leukocyte esterase det ection by dipstickOrdered By: Steve Donald on 06-18-2024 Leukocyte esterase Test strip Ql (U) Negative Negative [facility] Urine pHOrdered By: Steve caraballo on 06-18-2024 pH (U) 6.0 [pH] 5.0 - 8.0 [facility] Urine sediment bacteria coun t by microscopy (number/high power field)Ordered By: Steve Donald on 06-18-2024 Bacteria LM.HPF (Urine sed) [#/Area] RARE /hpf None Seen [facility] Urine specific gravity measu rementOrdered By: Steve Donald on 06-18-2024 Specific gravity (U) [Rel density] 1.010 1.002-1.030 [facility] Urine urobilinogen measureme ntOrdered By: Steve Donald on 06-18-2024 Urobilinogen Ql (U) Normal mg/dl Normal [facility] White blood cell countOrdere d By: Steve Donald on 06-18-2024 White blood cell count 0-5 SEEN /hpf 0-5 [facility] 12 Lead EKGon 06-17-2024 12 Lead EKG Normal [facility] Basic Metabolic Profile (BMP )on 06-17-2024 BUN/CRE 18.7 RATIO Normal 10-20 [facility] Comment on above: Performed By: #### L 100.0100, L500.2500, L501.4021 ####[facility] [address] [place], [address] Calcium [Mass/Vol] 9.4 mg/dL Normal 7.6-11.0 [facility] Comment on above: Performed By: #### L 100.0100, L500.2500, L501.4021 ####[facility] [address] [place], [address] Chloride [Moles/Vol] 100 mmol/L Normal 98-108 [facility] Comment on above: Performed By: #### L 100.0100, L500.2500, L501.4021 ####[facility] [address] [place], [address] CO2 [Moles/Vol] 21.0 mmol/L Normal 21.0-32.0 [facility] Comment on above: Performed By: #### L 100.0100, L500.2500, L501.4021 ####[facility] [address] [place], [address] Creatinine [Mass/Vol] 0.94 mg/dL Normal 0.70-1.20 [facility] Comment on above: Performed By: #### L 100.0100, L500.2500, L501.4021 ####[facility] [address] [place], [address] GAP 14 Normal 5-15 [facility] Comment on above: Performed By: #### L 100.0100, L500.2500, L501.4021 ####[facility] [address] [place], [address] GFR/1.73 sq M.predicted among non-blacks MDRD (S/P/Bld) [Vol rate/Area] 91 mL/min/{1.73_m2} Normal >60 [facility] Comment on above: Result Comment: mL/m in/1.73m2 CKD-EPI Creatinine Equation (2020) Performed By: #### L 100.0100, L500.2500, L501.4021 ####[facility] [address] [place], [address] Glucose [Mass/Vol] 438 mg/dL High 70-99 [facility] Comment on above: Performed By: #### L 100.0100, L500.2500, L501.4021 ####[facility] [address] [place], [address] Potassium [Moles/Vol] 4.5 mmol/L Normal 3.3-5.1 [facility] Comment on above: Performed By: #### L 100.0100, L500.2500, L501.4021 ####[facility] [address] [place], [address] Sodium [Moles/Vol] 134 mmol/L Normal 133-145 [facility] Comment on above: Performed By: #### L 100.0100, L500.2500, L501.4021 ####[facility] [address] [place], [address] Urea nitrogen [Mass/Vol] 18 mg/dL Normal 4-19 [facility] Comment on above: Performed By: #### L 100.0100, L500.2500, L501.4021 ####[facility] [address] [place], [address] CBC W/Diff, Automatedon 06-04 Absolute Lymph 2.17 X10 3/uL Normal 0.83-4.51 [facility] Comment on above: Performed By: #### L 100.0100, L500.2500, L501.4021 ####[facility] [address] [place], [address] Absolute Neut 2.9 X10 3/uL Normal 2.0-7.7 [facility] Comment on above: Performed By: #### L 100.0100, L500.2500, L501.4021 ####[facility] [address] [place], [address] Basophils/100 WBC (Bld) 0.3 % Normal 0-1 [facility] Comment on above: Performed By: #### L 100.0100, L500.2500, L501.4021 ####[facility] [address] [place], [address] Eosinophils/100 WBC (Bld) 2.2 % Normal 0-5 [facility] Comment on above: Performed By: #### L 100.0100, L500.2500, L501.4021 ####[facility] [address] [place], [address] Erythrocyte distribution width (RBC) [Ratio] 13.1 % Normal 11.6-14.6 [facility] Comment on above: Performed By: #### L 100.0100, L500.2500, L501.4021 ####[facility] [address] [place], [address] Hematocrit (Bld) [Volume fraction] 46.2 % Normal 40-54 [facility] Comment on above: Performed By: #### L 100.0100, L500.2500, L501.4021 ####[facility] [address] [place], [address] Hemoglobin (Bld) [Mass/Vol] 15.2 g/dL Normal 13.0-16.5 [facility] Comment on above: Performed By: #### L 100.0100, L500.2500, L501.4021 ####[facility] [address] [place], [address] IG% 0.200 Normal 0.0-0.9 [facility] Comment on above: Result Comment: IG% - Immature Granulocytes (promyelocytes, myelocytes andmetamyelocytes) > 1% indicates that a LEFT SHIFT is Present. Performed By: #### L 100.0100, L500.2500, L501.4021 ####[facility] [address] [place], [address] Lymphocytes/100 WBC (Bld) 37.2 % Normal 19-41 [facility] Comment on above: Performed By: #### L 100.0100, L500.2500, L501.4021 ####[facility] [address] [place], [address] MCH (RBC) [Entitic mass] 31.3 pg Normal 27.0-32.0 [facility] Comment on above: Performed By: #### L 100.0100, L500.2500, L501.4021 ####[facility] [address] [place], [address] MCHC (RBC) [Mass/Vol] 32.9 g/dL Normal 32-36 [facility] Comment on above: Performed By: #### L 100.0100, L500.2500, L501.4021 ####[facility] [address] [place], [address] MCV (RBC) [Entitic vol] 95.1 fL High 80-94 [facility] Comment on above: Performed By: #### L 100.0100, L500.2500, L501.4021 ####[facility] [address] [place], [address] Monocytes/100 WBC (Bld) 10.3 % High 0-10 [facility] Comment on above: Performed By: #### L 100.0100, L500.2500, L501.4021 ####[facility] [address] [place], [address] Neutrophils/100 WBC (Bld) 49.8 % Normal 47-70 [facility] Comment on above: Performed By: #### L 100.0100, L500.2500, L501.4021 ####[facility] [address] [place], [address] Nucleated RBC (Bld) [#/Vol] 0 10*3/uL Normal 0-5 [facility] Comment on above: Performed By: #### L 100.0100, L500.2500, L501.4021 ####[facility] [address] [place], [address] Platelet mean volume (Bld) [Entitic vol] 10.3 fL Normal 6.2-12.0 [facility] Comment on above: Performed By: #### L 100.0100, L500.2500, L501.4021 ####[facility] [address] [place], [address] Platelets (Bld) [#/Vol] 244 10*3/uL Normal 150-450 [facility] Comment on above: Performed By: #### L 100.0100, L500.2500, L501.4021 ####[facility] [address] [place], [address] RBC (Bld) [#/Vol] 4.86 10*6/uL Normal 4.6-6.2 [facility] Comment on above: Performed By: #### L 100.0100, L500.2500, L501.4021 ####[facility] [address] [place], [address] RDW SD 45.7 fl High 35.1-43.9 [facility] Comment on above: Performed By: #### L 100.0100, L500.2500, L501.4021 ####[facility] [address] [place], [address] WBC (Bld) [#/Vol] 5.8 10*3/uL Normal 4.4-11.0 [facility] Comment on above: Performed By: #### L 100.0100, L500.2500, L501.4021 ####[facility] [address] [place], [address] Chest 1 View (Portable)on Chest 1 View (Portable) Normal [facility] L501.4021on 06-17-2024 Trop T High Sen 76 ng/L Invalid Interpretation Code <=22 [facility] Comment on above: Result Comment: Crit ical Result(s) Called at: 2342 by: NARAYAN LAMBERT??Results read back by same. Performed By: #### L 100.0100, L500.2500, L501.4021 ####[facility] [address] [place], [address] No Panel InformationOrdered By: ED PROVIDER on 06-17-2024 76 ng/L High <22 [facility] No Panel InformationOrdered By: Jevon Osorio on 06-17-2024 2490 pg/mL High <900 [facility] Ankle Brachial Indexon 06-13 Ankle Brachial Index Normal [facility] Arterial Doppler ultrasound reportOrdered By: Saúl Flowers on 06-13-2024 Study report [facility] [address] [place] [address] US Art Duplex Unilat Lower Ext 06/13/24 1426 MR#: [id number] Acct: [id number] Name: ROBERTOJAYLEN Hananh Sr. Rep #:[id number] : 1960 64 [...] Physician: Xiang Rogers Performed By: Solange Pena, RDCS, RVT 06/13/24 5673 Date _ Saúl Flowers MD CC: NILSON Heck; Dr. Xiang Rogers, ~ Date Dictated: 06/13/24 1426 Date Transcribed: 06/13/241632 [employer]: Signed [facility] Work Phone: Arterial study reportOrdered By: Saúl Flowers on 06-13-2024 Noninvasive arteriosclerosis study report [facility] [place] [address] Ankle Brachial Index 06/13/24 1351 MR#: [id number] Acct: [id number] Name: JAYLEN MEJIA . Rep #:[id number] : 1960 64 From: [...] Dictated: 06/13/24 1351 Date Transcribed: 06/13/24 1630 [employer]: Signed [facility] Work Phone: US Art Duplex Unilat Lower E xton 06-13-2024 US Art Duplex Unilat Lower Ext Normal [facility] Chest 1 View (Portable)on Chest 1 View (Portable) Normal [facility] Emergency Department Summary on 05-21-2024 Emergency Department Summary Normal [facility] Influenza virus A and B and SARS-CoV-2 (COVID-19) and Respiratory syncytial virus RNAOrdered By: Saúl Aguilar on 05-21-2024 SARS-CoV-2 (COVID-19) RNA HAYDER+probe Ql (Unsp spec) [facility] M100.678on 05-21-2024 M100.678 SARS-CoV-2 (COVID 19 ) Negative INFLUENZA A Negative INFLUENZA B Negative RSV PCR Negative Normal [facility] Comment on above: Performed By: #### M [id number] ####[facility] [address] [place], [place], [address] MR/BMS.BVSon 05-17-2024 MR/BMS.BVS Normal [facility] Echo Complete W/ Contraston 05-09-2024 Echo Complete W/ Contrast Normal [facility] Internal Medicine Office Vis iton 05-03-2024 Internal Medicine Office Visit Normal [facility] Laboratory - Hematology and Cell countson 05-03-2024 HbA1c (Bld) [Mass fraction] 11.4 % High 4.2-6.3 [facility] ACT Activated Clotting Timeo n 04-20-2024 ACTk CLOT TIME 222 sec High 74-137 [facility] Comment on above: Performed By: #### L 9100.0100 ####[facility] [address] [place], [address] Activated clotting timeOrder ed By: Saúl Flowers on 04-20-2024 Activated Clotting Time 222 sec High 74-137 [facility] Basic Metabolic Profile (BMP )on 04-20-2024 BUN/CRE 15.1 RATIO Normal 10-20 [facility] Comment on above: Performed By: #### L 500.2500, L100.0500 ####[facility] [address] [place], [address] CA,Total 9.3 mg/dL Normal 8.5-10.1 [facility] Comment on above: Performed By: #### L 500.2500, L100.0500 ####[facility] [address] [place], [address] Chloride [Moles/Vol] 103 mmol/L Normal 98-107 [facility] Comment on above: Performed By: #### L 500.2500, L100.0500 ####[facility] [address] [place], [address] CO2 [Moles/Vol] 26.0 mmol/L Normal 21.0-32.0 [facility] Comment on above: Performed By: #### L 500.2500, L100.0500 ####[facility] [address] [place], [address] Creatinine [Mass/Vol] 1.06 mg/dL Normal 0.70-1.30 [facility] Comment on above: Result Comment: The validity of the calculated GFR GFRAA in patients over70 years has not been determined. Clinical correlation isessential. Performed By: #### L 500.2500, L100.0500 ####[facility] [address] [place], [address] ECRCL 78.67 ml/min Normal [facility] Comment on above: Performed By: #### L 500.2500, L100.0500 ####[facility] [address] [place], [address] EST GFR - AA 90 mL/min Normal >60 [facility] Comment on above: Result Comment: Afri can Beninese GFR Calc Performed By: #### L 500.2500, L100.0500 ####[facility] [address] [place], [address] GAP 6 Normal 5-15 [facility] Comment on above: Performed By: #### L 500.2500, L100.0500 ####[facility] [address] [place], [address] GFR/1.73 sq M.predicted among non-blacks MDRD (S/P/Bld) [Vol rate/Area] 75 mL/min/{1.73_m2} Normal >60 [facility] Comment on above: Result Comment: Non- GFR Calc Performed By: #### L 500.2500, L100.0500 ####[facility] [address] [place], [address] Glucose [Mass/Vol] 228 mg/dL High 74-106 [facility] Comment on above: Result Comment: Gluc ose result greater than or equal to 200 mg/dLsuggests DIABETES MELLITUS per A.D.A. criteria. Performed By: #### L 500.2500, L100.0500 ####[facility] [address] [place], [address] Potassium [Moles/Vol] 4.3 mmol/L Normal 3.5-5.1 [facility] Comment on above: Performed By: #### L 500.2500, L100.0500 ####[facility] [address] [place], [address] Sodium [Moles/Vol] 135 mmol/L Low 136-145 [facility] Comment on above: Performed By: #### L 500.2500, L100.0500 ####[facility] [address] [place], [address] Urea nitrogen [Mass/Vol] 16 mg/dL Normal 7-18 [facility] Comment on above: Performed By: #### L 500.2500, L100.0500 ####[facility] [address] [place], [address] Blood urea nitrogen (BUN)/cr eatinine ratioOrdered By: Saúl Flowers on 04-20-2024 Urea nitrogen/Creatinine [Mass ratio] 15.1 mg/mg 10-20 [facility] CBC-Complete Blood Cnt No Di ffon 04-20-2024 Erythrocyte distribution width (RBC) [Ratio] 12.9 % Normal 11.6-14.6 [facility] Comment on above: Performed By: #### L 500.2500, L100.0500 ####[facility] [address] [place], [address] Hematocrit (Bld) [Volume fraction] 52.2 % Normal 40-54 [facility] Comment on above: Performed By: #### L 500.2500, L100.0500 ####[facility] [address] [place], [address] Hemoglobin (Bld) [Mass/Vol] 17.8 g/dL High 13.0-16.5 [facility] Comment on above: Performed By: #### L 500.2500, L100.0500 ####[facility] [address] [place], [address] MCH (RBC) [Entitic mass] 31.7 pg Normal 27.0-32.0 [facility] Comment on above: Performed By: #### L 500.2500, L100.0500 ####[facility] [address] [place], [address] MCHC (RBC) [Mass/Vol] 34.1 g/dL Normal 32-36 [facility] Comment on above: Performed By: #### L 500.2500, L100.0500 ####[facility] [address] [place], [address] MCV (RBC) [Entitic vol] 92.9 fL Normal 80-94 [facility] Comment on above: Performed By: #### L 500.2500, L100.0500 ####[facility] [address] [place], [address] Platelet mean volume (Bld) [Entitic vol] 9.5 fL Normal 6.2-12.0 [facility] Comment on above: Performed By: #### L 500.2500, L100.0500 ####[facility] [address] [place], [address] Platelets (Bld) [#/Vol] 271 10*3/uL Normal 150-450 [facility] Comment on above: Performed By: #### L 500.2500, L100.0500 ####[facility] [address] [place], [address] RBC (Bld) [#/Vol] 5.62 10*6/uL Normal 4.6-6.2 [facility] Comment on above: Performed By: #### L 500.2500, L100.0500 ####[facility] [address] [place], [address] RDW SD 43.8 fl Normal 35.1-43.9 [facility] Comment on above: Performed By: #### L 500.2500, L100.0500 ####[facility] [address] [place], [address] WBC (Bld) [#/Vol] 8.5 10*3/uL Normal 4.4-11.0 [facility] Comment on above: Performed By: #### L 500.2500, L100.0500 ####[facility] [address] [place], [address] Carbon dioxide measurementOr dered By: Saúl Flowers on 04-20-2024 CO2 [Moles/Vol] 26.0 mmol/L 21.0-32.0 [facility] Chloride measurementOrdered By: Saúl Flowers on 04-20-2024 Chloride [Moles/Vol] 103 mmol/L 98-107 [facility] Erythrocyte distribution wid th ratioOrdered By: Saúl Flowers on 04-20-2024 Erythrocyte distribution width (RBC) [Ratio] 12.9 % 11.6-14.6 [facility] Erythrocyte distribution wid th standard deviationOrdered By: Saúl Flowers on 04-20-2024 Erythrocyte distribution width (RBC) [Entitic vol] 43.8 fL 35.1-43.9 [facility] Estimated glomerular filtrat ion rate (GFR) AmericanOrdered By: Saúl Flowers on 04-20-2024 Estimated GFR (MDRD) Amer 90 mL/min >60 [facility] Comment on above: GFR Calc Estimation of creatinine john aranceOrdered By: Saúl Flowers on 04-20-2024 Estimated Creatinine Clearance Calc 78.67 ml/min [facility] Glomerular filtration rate ( GFR) estimationOrdered By: Saúl Flowers on 04-20-2024 Estimated GFR (MDRD) Non-Af Amer 75 mL/min >60 [facility] Comment on above: Non- GFR Calc Glucose measurementOrdered B y: Saúl Flowers on 04-20-2024 Glucose [Mass/Vol] 228 mg/dL High 74-106 [facility] Comment on above: Glucose result great er than or equal to 200 mg/dLsuggests DIABETES MELLITUS per A.D.A. criteria. Hematocrit Auto (Bld) [Volum e fraction]Ordered By: Saúl Flowers on 04-20-2024 Hematocrit (Bld) [Volume fraction] 52.2 % 40-54 [facility] Hemoglobin measurementOrdere d By: Saúl Flowers on 04-20-2024 Hemoglobin (Bld) [Mass/Vol] 17.8 g/dL High 13.0-16.5 [facility] MCV (mean corpuscular volume ) determinationOrdered By: Saúl Flowers on 04-20-2024 MCV (RBC) [Entitic vol] 92.9 fL 80-94 [facility] Mean corpuscular hemoglobin (MCH) determinationOrdered By: Saúl Flowers on 04-20-2024 MCH (RBC) [Entitic mass] 31.7 pg 27.0-32.0 [facility] Mean corpuscular hemoglobin concentration (MCHC) determinationOrdered By: Saúl Flowers on 04-20-2024 MCHC (RBC) [Mass/Vol] 34.1 g/dL 32-36 [facility] Mean platelet volume determi nationOrdered By: Saúl Floewrs on 04-20-2024 Platelet mean volume (Bld) [Entitic vol] 9.5 fL 6.2-12.0 [facility] Operative Reporton Operative Report Normal [facility] Platelet countOrdered By: Chacho Flowers on 04-20-2024 Platelets (Bld) [#/Vol] 271 10*3/uL 150-450 [facility] Potassium measurementOrdered By: Saúl Flowers on 04-20-2024 Potassium [Moles/Vol] 4.3 mmol/L 3.5-5.1 [facility] RBC Auto (Bld) [#/Vol]Ordere d By: Saúl Flowers on 04-20-2024 RBC (Bld) [#/Vol] 5.62 10*6/uL 4.6-6.2 [facility] Serum anion gap measurementO rdered By: Saúl Flowers on 04-20-2024 Anion gap [Moles/Vol] 6 mmol/L - [facility] Serum or plasma calcium brenda urement (mass/volume)Ordered By: Saúl Flowers on 04-20-2024 Calcium [Mass/Vol] 9.3 mg/dL 8.5-10.1 [facility] Serum or plasma creatinine m easurement (mass/volume)Ordered By: Saúl Flowers on 04-20-2024 Creatinine [Mass/Vol] 1.06 mg/dL 0.70-1.30 [facility] Comment on above: The validity of the calculated GFR & GFRAA in patients over 70 years has not been determined. Clinical correlation is essential. Serum or plasma urea nitroge n measurement (mass/volume)Ordered By: Saúl Flowers on 04-20-2024 Urea nitrogen [Mass/Vol] 16 mg/dL 7-18 [facility] Sodium levelOrdered By: Saúl Flowers on 04-20-2024 Sodium [Moles/Vol] 135 mmol/L Low 136-145 [facility] White blood cell (WBC) count Ordered By: Saúl Flowers on 04-20-2024 WBC (Bld) [#/Vol] 8.5 10*3/uL 4.4-11.0 [facility] MR/BMS.BVSon 04-08-2024 MR/BMS.BVS Normal [facility] Cardiology Visit Reporton Cardiology Visit Report Normal [facility] CREATININE FINGERSTICKon CREATININE WB < 1.0 Normal 0.70-1.30 [facility] Comment on above: Performed By: #### L 9100.0200 ####[facility] [address] [place], [place], [id number] EGFR WB > 60.0000 Normal >60 [facility] Comment on above: Performed By: #### L 9100.0200 ####[facility] [address] [place], [place], [address] CTA Abd w/Runoff W/WO Contra ston 03-29-2024 CTA Abd w/Runoff W/WO Contrast Normal [facility] Creatinine measurement at be dsideOrdered By: Lubna Manley on 03-29-2024 Bedside Creatinine < 1.0 mg/dL 0.70-1.30 [facility] EGFROrdered By: Lubna Manley on 03-29-2024 Bedside Estimated GFR (eGFR) > 60.0000 mL/min >60 [facility] MR/BMS.BVSon 03-22-2024 MR/BMS.BVS Normal [facility] Lower Ext Art Exam w/o Exerc zachary 03-09-2024 Lower Ext Art Exam w/o Exercis Normal [facility] Internal Medicine Office Vis iton 02-24-2024 Internal Medicine Office Visit Normal [facility] Laboratory - Hematology and Cell countson 02-24-2024 HbA1c (Bld) [Mass fraction] 11.3 % High 4.2-6.3 [facility] MR/BMS.BVSon 02-24-2024 MR/BMS.BVS Normal [facility] Lipid Profileon 02-23-2024 Cholesterol [Mass/Vol] 238 mg/dL High 200 [facility] Comment on above: Result Comment: <200 mg/dL Desirable 200-240 mg/dL Borderline >240 mg/dL High Risk Performed By: #### L 500.3400, L500.4100 ####[facility] [address] [place], [address] Cholesterol in HDL [Mass/Vol] 38 mg/dL Low [facility] Comment on above: Result Comment: The drugs N-Acetylcysteine and Metamizole may falselydepress this assay. Reference Range HDL <40 mg/dL Low HDL Cholesterol HDL >or= 60 mg/dL High HDL Cholesterol Performed By: #### L 500.3400, L500.4100 ####[facility] [address] [place], [address] LDL TNP Normal 0-130 [facility] Comment on above: Performed By: #### L 500.3400, L500.4100 ####[facility] [address] [place], [address] Triglyceride [Mass/Vol] 607 mg/dL High [facility] Comment on above: Result Comment: The drugs N-Acetylcysteine and Metamizole may falselydepress this assay.TRIGLYCERIDE IS GREATER THAN 400 mg/dL.LDL RESULT IS INVALID AND WILL NOT BE REPORTED.Serum Triglycerides Reference Interval Normal <150 mg/dL Borderline high 150 - 199 mg/dL High 200 - 499 mg/dL Very High > or = 500 mg/dL Performed By: #### L 500.3400, L500.4100 ####[facility] [address] [place], [address] VLDL TNP Normal 5-40 [facility] Comment on above: Performed By: #### L 500.3400, L500.4100 ####[facility] [address] [place], [address] Liver Profileon 02-23-2024 Albumin [Mass/Vol] 3.8 g/dL Normal 3.2-5.0 [facility] Comment on above: Performed By: #### L 500.3400, L500.4100 ####[facility] [address] [place], [address] ALK P 69 U/L Normal 45-117 [facility] Comment on above: Performed By: #### L 500.3400, L500.4100 ####[facility] [address] [place], [address] ALT [Catalytic activity/Vol] 37 U/L Normal 16-61 [facility] Comment on above: Performed By: #### L 500.3400, L500.4100 ####[facility] [address] [place], [address] AST [Catalytic activity/Vol] 27 U/L Normal 15-37 [facility] Comment on above: Performed By: #### L 500.3400, L500.4100 ####[facility] [address] [place], [address] Bilirubin [Mass/Vol] 0.70 mg/dL Normal 0.20-1.00 [facility] Comment on above: Result Comment: For patients on eltrombopag therapy, use of Dimension [place] TBIL is not recommended. Performed By: #### L 500.3400, L500.4100 ####[facility] [address] [place], [address] Bilirubin.direct [Mass/Vol] 0.16 mg/dL Normal 0.00-0.30 [facility] Comment on above: Performed By: #### L 500.3400, L500.4100 ####[facility] [address] [place], [address] Globulin (S) [Mass/Vol] 4.0 g/dL Normal 2.2-4.2 [facility] Comment on above: Performed By: #### L 500.3400, L500.4100 ####[facility] [address] [place], [address] T PROT 7.8 g/dL Normal 6.4-8.2 [facility] Comment on above: Performed By: #### L 500.3400, L500.4100 ####[facility] [address] [place], [address] MR/BMS.BVSon 01-07-2024 MR/BMS.BVS Normal [facility] Venous Duplex US, Unilateral on 11-13-2023 Venous Duplex US, Unilateral Normal [facility] Basophil percentageOrdered B y: Xiang Brown on 04-15-2023 Bilirubin [Mass/Vol] 0.60 mg/dL 0.20-1.00 [facility] Comment on above: For patients on eltr ombopag therapy, use of Dimension [place] TBIL is not recommended. Chloride [Moles/Vol] 100 mmol/L 98-107 [facility] Cholesterol [Mass/Vol] 255 mg/dL <200 [facility] Comment on above: <200 mg/dL Desirable 200-240 mg/dL Borderline >240 mg/dL High Risk Glucose [Mass/Vol] 255 mg/dL 74-106 [facility] Comment on above: Glucose result great er than or equal to 200 mg/dLsuggests DIABETES MELLITUS per A.D.A. criteria. Potassium [Moles/Vol] 4.7 mmol/L 3.5-5.1 [facility] Comment on above: Slight Hemolysis, Re sult may be falsely increased. Protein [Mass/Vol] 7.7 g/dL 6.4-8.2 [facility] Sodium [Moles/Vol] 133 mmol/L 136-145 [facility] Triglyceride [Mass/Vol] 411 mg/dL <199 [facility] Comment on above: The drugs [...] 04-15-2023 ALP [Catalytic activity/Vol] 81 U/L 45-117 [facility] ALT [Catalytic activity/Vol] 40 U/L 16-61 [facility] CO2 [Moles/Vol] 28.0 mmol/L 21.0-32.0 [facility] Globulin (S) [Mass/Vol] 4.1 g/dL 2.2-4.2 [facility] Urea nitrogen/Creatinine [Mass ratio] 11.9 mg/mg 10-20 [facility] Laboratory - Hematology and Cell countson 04-15-2023 HbA1c (Bld) [Mass fraction] 10.6 % 4.2-6.3 [facility] No Panel InformationOrdered By: Xiang Rogers on 04-15-2023 Estimated GFR (MDRD) Amer 96 mL/min >60 [facility] Comment on above: GFR Calc Estimated GFR (MDRD) Non-Af Amer 79 mL/min >60 [facility] Comment on above: Non- GFR Calc Serum or plasma albumin brenda urement (mass/volume)Ordered By: Xiang Rogers on 04-15-2023 Albumin [Mass/Vol] 3.6 g/dL 3.2-5.0 [facility] Serum or plasma albumin/glob ulin mass ratioOrdered By: Xiang Rogers on 04-15-2023 Albumin/Globulin [Mass ratio] 0.9 {ratio} 0.9-2.4 [facility] Serum or plasma calcium brenda urement (mass/volume)Ordered By: Xiang Rogers on 04-15-2023 Calcium [Mass/Vol] 8.9 mg/dL 8.5-10.1 [facility] Serum or plasma cholesterol in HDL measurement (mass/volume)Ordered By: Xiang Rogers on 04-15-2023 Cholesterol in HDL [Mass/Vol] 37 mg/dL >40 [facility] Comment on above: The drugs N-Acetylcy steine and Metamizole may falsely depress this assay. Reference Range HDL <40 mg/dL Low HDL Cholesterol HDL >or= 60 mg/dL High HDL Cholesterol Serum or plasma cholesterol in VLDL measurement (mass/volume)Ordered By: Xiang Rogers on 04-15-2023 Cholesterol in VLDL [Mass/Vol] [facility] Comment on above: Test not performed Serum or plasma creatinine m easurement (mass/volume)Ordered By: Xiang Rogers on 04-15-2023 Creatinine [Mass/Vol] 1.01 mg/dL 0.70-1.30 [facility] Comment on above: The validity of the calculated GFR & GFRAA in patients over 70 years has not been determined. Clinical correlation is essential. Serum or plasma low density lipoprotein (LDL) cholesterol measurement (mass/volume)Ordered By: Xiang Rogers on 04-15-2023 Cholesterol in LDL [Mass/Vol] [facility] Comment on above: Test not performed Serum or plasma urea nitroge n measurement (mass/volume)Ordered By: Xiang Rogers on 04-15-2023 Urea nitrogen [Mass/Vol] 12 mg/dL -18 [facility] Thin prep Papanicolaou smear with manual screeningOrdered By: Xiang Rogers on 04-15-2023 Thin prep Papanicolaou smear with manual screening 29 U/L [facility] Comment on above: Slight Hemolysis, Re sult may be falsely increased. Thin prep Papanicolaou smear with manual screening 5 5-15 [facility] Laboratory - Hematology and Cell countson 01-13-2023 HbA1c (Bld) [Mass fraction] 9.0 % 4.2-6.3 [facility] Basophil percentageOrdered B y: Dean Pena on 06-02-2022 Bilirubin [Mass/Vol] 0.50 mg/dL 0.20-1.00 [facility] Comment on above: For patients on eltr ombopag therapy, use of Dimension [place] TBIL is not recommended. Cholesterol [Mass/Vol] 326 mg/dL <200 [facility] Comment on above: <200 mg/dL Desirable 200-240 mg/dL Borderline >240 mg/dL High Risk Protein [Mass/Vol] 7.5 g/dL 6.4-8.2 [facility] Triglyceride [Mass/Vol] 883 mg/dL <199 [facility] Comment on above: The drugs [...] on 06-02-2022 Bilirubin.direct [Mass/Vol] 0.07 mg/dL 0.00-0.30 [facility] Laboratory - Chemistry and C hemistry - challengeOrdered By: Dean Pena on 06-02-2022 ALP [Catalytic activity/Vol] 68 U/L 45-117 [facility] ALT [Catalytic activity/Vol] 35 U/L 16-61 [facility] Globulin (S) [Mass/Vol] 3.9 g/dL 2.2-4.2 [facility] Serum or plasma albumin brenda urement (mass/volume)Ordered By: Dean Pena on 06-02-2022 Albumin [Mass/Vol] 3.6 g/dL 3.2-5.0 [facility] Serum or plasma cholesterol in HDL measurement (mass/volume)Ordered By: Dean Pena on 06-02-2022 Cholesterol in HDL [Mass/Vol] 36 mg/dL >40 [facility] Comment on above: The drugs N-Acetylcy steine and Metamizole may falsely depress this assay. Reference Range HDL <40 mg/dL Low HDL Cholesterol HDL >or= 60 mg/dL High HDL Cholesterol Serum or plasma cholesterol in VLDL measurement (mass/volume)Ordered By: Dean Pena on 06-02-2022 Cholesterol in VLDL [Mass/Vol] [facility] Comment on above: Test not performed Serum or plasma low density lipoprotein (LDL) cholesterol measurement (mass/volume)Ordered By: Dean Pena on 06-02-2022 Cholesterol in LDL [Mass/Vol] [facility] Comment on above: Test not performed Thin prep Papanicolaou smear with manual screeningOrdered By: Dean Pena on 06-02-2022 Thin prep Papanicolaou smear with manual screening 26 U/L 15-37 [facility] Comment on above: Moderate Hemolysis, Result may be falsely increased. Absolute lymphocyte countOrd ered By: Dr. Johnson on 04-19-2022 Lymphocytes Auto (Unsp spec) [#/Vol] 1.77 10*3/uL 0.83-4.51 [facility] Basophil percentageOrdered B y: Dr. Fields on 04-19-2022 Chloride [Moles/Vol] 104 mmol/L 98-107 [facility] Glucose [Mass/Vol] 235 mg/dL 74-106 [facility] Comment on above: Glucose result great er than or equal to 200 mg/dLsuggests DIABETES MELLITUS per A.D.A. criteria. Potassium [Moles/Vol] 4.1 mmol/L 3.5-5.1 [facility] Sodium [Moles/Vol] 137 mmol/L 136-145 [facility] Basophil percentageOrdered B y: Dr. Johnson on 04-19-2022 Basophils/100 WBC (Bld) 0.5 % 0-1 [facility] Eosinophils/100 WBC (Bld) 4.3 % 0-5 [facility] Neutrophils (Bld) [#/Vol] 3.9 10*3/uL 2.0-7.7 [facility] Neutrophils/100 WBC (Bld) 59.9 % 47-70 [facility] WBC (Bld) [#/Vol] 6.6 10*3/uL 4.4-11.0 [facility] Blood erythrocytes count (nu mber/volume)Ordered By: Dr. Johnson on 04-19-2022 RBC (Bld) [#/Vol] 4.82 10*6/uL 4.6-6.2 [facility] Blood hemoglobin measurement (mass/volume)Ordered By: Dr. Johnson on 04-19-2022 Hemoglobin (Bld) [Mass/Vol] 15.4 g/dL 13.0-16.5 [facility] Blood lymphocytes/100 leukoc ytesOrdered By: Dr. Johnson on 04-19-2022 Lymphocytes/100 WBC (Bld) 27.0 % 19-41 [facility] Blood monocytes/100 leukocyt esOrdered By: Dr. Johnson on 04-19-2022 Monocytes/100 WBC (Bld) 7.8 % 0-10 [facility] Blood platelet mean volumeOr dered By: Dr. Johnson on 04-19-2022 Platelet mean volume (Bld) [Entitic vol] 10.2 fL 6.2-12.0 [facility] Determination of erythrocyte mean corpuscular volume (MCV)Ordered By: Dr. Johnson on 04-19-2022 MCV (RBC) [Entitic vol] 95.4 fL 80-94 [facility] Glucose Glucometer (dC) [M ass/Vol]Ordered By: Dr. Fields on 04-19-2022 Glucose [Mass/Vol] 290 mg/dL 74-106 [facility] Comment on above: MANAGEMENT OF PATIEN T CARE PER NURSING PROTOCOL Hematocrit Auto (Bld) [Volum e fraction]Ordered By: Dr. Johnson on 04-19-2022 Hematocrit (Bld) [Volume fraction] 46.0 % 40-54 [facility] INR in Blood by Coagulation assayOrdered By: Dr. Fields on 04-19-2022 INR Coag (Bld) [Relative time] 1.0 {INR} [facility] Laboratory - Chemistry and C hemistry - challengeOrdered By: Dr. Fields on 04-19-2022 CO2 [Moles/Vol] 26.0 mmol/L 21.0-32.0 [facility] Urea nitrogen/Creatinine [Mass ratio] 15.7 mg/mg 10-20 [facility] Laboratory - CoagulationOrde red By: Dr. Fields on 04-19-2022 aPTT Coag (Bld) [Time] 25.0 s 24.1-36.2 [facility] PT Coag (PPP) [Time] 13.0 s 11.7-14.9 [facility] Laboratory - Hematology and Cell countsOrdered By: Dr. Johnson on 04-19-2022 Erythrocyte distribution width (RBC) [Entitic vol] 43.7 fL 35.1-43.9 [facility] Erythrocyte distribution width (RBC) [Ratio] 12.4 % 11.6-14.6 [facility] Immature granulocytes/100 WBC (Bld) 0.500 % 0.0-0.9 [facility] Comment on above: IG% - Immature Granu locytes (promyelocytes, myelocytes and metamyelocytes) > 1% indicates that a LEFT SHIFT is Present. MCH (RBC) [Entitic mass] 32.0 pg 27.0-32.0 [facility] Nucleated RBC/100 WBC (Bld) [Ratio] 0 % 0-5 [facility] MCHC Auto (RBC) [Mass/Vol]Or dered By: Dr. Johnson on 04-19-2022 MCHC (RBC) [Mass/Vol] 33.5 g/dL 32-36 [facility] No Panel InformationOrdered By: Dr. Fields on 04-19-2022 Estimated Creatinine Clearance Calc 79.98 ml/min [facility] Estimated GFR (MDRD) Amer 95 mL/min >60 [facility] Comment on above: GFR Calc Estimated GFR (MDRD) Non-Af Amer 79 mL/min >60 [facility] Comment on above: Non- GFR Calc Platelets bldOrdered By: Dr. Johnson on 04-19-2022 Platelets (Bld) [#/Vol] 254 10*3/uL 150-450 [facility] Serum or plasma calcium brenda urement (mass/volume)Ordered By: Dr. Fields on 04-19-2022 Calcium [Mass/Vol] 8.9 mg/dL 8.5-10.1 [facility] Serum or plasma creatinine m easurement (mass/volume)Ordered By: Dr. Fields on 04-19-2022 Creatinine [Mass/Vol] 1.02 mg/dL 0.70-1.30 [facility] Comment on above: The validity of the calculated GFR & GFRAA in patients over 70 years has not been determined. Clinical correlation is essential. Serum or plasma urea nitroge n measurement (mass/volume)Ordered By: Dr. Fields on 04-19-2022 Urea nitrogen [Mass/Vol] 16 mg/dL 7-18 [facility] Thin prep Papanicolaou smear with manual screeningOrdered By: Dr. Fields on 04-19-2022 Thin prep Papanicolaou smear with manual screening 7 5-15 [facility] Absolute lymphocyte counton 04-18-2022 Lymphocytes Auto (Unsp spec) [#/Vol] 2.31 10*3/uL 0.83-4.51 [facility] Work Phone: Basophil percentageon 2022 Basophils/100 WBC (Bld) 0.5 % 0-1 [facility] Work Phone: Chloride [Moles/Vol] 103 mmol/L 98-107 [facility] Work Phone: Eosinophils/100 WBC (Bld) 4.3 % 0-5 [facility] Work Phone: Glucose [Mass/Vol] 252 mg/dL 74-106 [facility] Work Phone: Comment on above: Moderate Lipemia, Re sult may be falsely increased.Glucose result greater than or equal to 200 mg/dLsuggests DIABETES MELLITUS per A.D.A. criteria. Neutrophils (Bld) [#/Vol] 4.7 10*3/uL 2.0-7.7 [facility] Work Phone: Neutrophils/100 WBC (Bld) 57.7 % 47-70 [facility] Work Phone: Potassium [Moles/Vol] 3.9 mmol/L 3.5-5.1 [facility] Work Phone: Comment on above: Moderate Hemolysis, Result may be falsely increased. Sodium [Moles/Vol] 136 mmol/L 136-145 [facility] Work Phone: WBC (Bld) [#/Vol] 8.1 10*3/uL 4.4-11.0 [facility] Work Phone: Blood erythrocytes count (nu mber/volume)on 04-18-2022 RBC (Bld) [#/Vol] 4.98 10*6/uL 4.6-6.2 [facility] Work Phone: Blood hemoglobin measurement (mass/volume)on 04-18-2022 Hemoglobin (Bld) [Mass/Vol] 16.4 g/dL 13.0-16.5 [facility] Work Phone: Blood lymphocytes/100 leukoc yteson 04-18-2022 Lymphocytes/100 WBC (Bld) 28.6 % 19-41 [facility] Work Phone: [phone] Blood monocytes/100 leukocyt eson 04-18-2022 Monocytes/100 WBC (Bld) 8.5 % 0-10 [facility] Work Phone: Blood platelet mean volumeon 04-18-2022 Platelet mean volume (Bld) [Entitic vol] 10.2 fL 6.2-12.0 [facility] Work Phone: [phone] Determination of erythrocyte mean corpuscular volume (MCV)on 04-18-2022 MCV (RBC) [Entitic vol] 97.4 fL 80-94 [facility] Work Phone: Hematocrit Auto (Bld) [Volum e fraction]on 04-18-2022 Hematocrit (Bld) [Volume fraction] 48.5 % 40-54 [facility] Work Phone: INR in Blood by Coagulation assayon 04-18-2022 INR Coag (Bld) [Relative time] 1.0 {INR} [facility] Work Phone: Laboratory - Chemistry and C hemistry - challengeon 04-18-2022 CO2 [Moles/Vol] 28.0 mmol/L 21.0-32.0 [facility] Work Phone: Urea nitrogen/Creatinine [Mass ratio] 17.1 mg/mg 10-20 [facility] Work Phone: [phone] Laboratory - Chemistry and C hemistry - challengeOrdered By: Dr. Moura on 04-18-2022 Magnesium [Mass/Vol] 1.8 mg/dL 1.6-2.6 [facility] Comment on above: Moderate Hemolysis, Result may be falsely increased. Laboratory - Coagulationon 0 04-18-2022 aPTT Coag (Bld) [Time] 25.6 s 24.1-36.2 [facility] Work Phone: PT Coag (PPP) [Time] 12.3 s 11.7-14.9 [facility] Work Phone: Laboratory - Hematology and Cell countson 04-18-2022 Erythrocyte distribution width (RBC) [Entitic vol] 44.8 fL 35.1-43.9 [facility] Work Phone: Erythrocyte distribution width (RBC) [Ratio] 12.4 % 11.6-14.6 [facility] Work Phone: Immature granulocytes/100 WBC (Bld) 0.400 % 0.0-0.9 [facility] Work Phone: Comment on above: IG% - Immature Granu locytes (promyelocytes, myelocytes and metamyelocytes) > 1% indicates that a LEFT SHIFT is Present. MCH (RBC) [Entitic mass] 32.9 pg 27.0-32.0 [facility] Work Phone: Nucleated RBC/100 WBC (Bld) [Ratio] 0 % 0-5 [facility] Work Phone: MCHC Auto (RBC) [Mass/Vol]on 04-18-2022 MCHC (RBC) [Mass/Vol] 33.8 g/dL 32-36 [facility] Work Phone: No Panel InformationOrdered By: Dr. Fields on 04-18-2022 Troponin I High Sensitivity 1889 pg/mL 3.0-78.0 [facility] Comment on above: Critical Result(s) C alled at: 09:16:37 04/18/2022 by: Rula Gutierrez. Results read back by same. Please Note: New Test Units and Gender Specific Reference Ranges. For more information see Policy Stat Procedure [place] High Sensitivity Troponin (TNIH) and attachments. No Panel Informationon 04-18 Troponin I High Sensitivity 241 pg/mL 3.0-78.0 [facility] Work Phone: Comment on above: Critical Result(s) C alled at: 04:49:49 04/18/2022 by: NICOLE Matthews WINDOWS SERVER SUPPORT TECHNICIAN. Results read back by same. Please Note: New Test Units and Gender Specific Reference Ranges. For more information see Policy Stat Procedure [place] High Sensitivity Troponin (TNIH) and attachments. Estimated Creatinine Clearance Calc 77.69 ml/min [facility] Work Phone: Estimated GFR (MDRD) Amer 92 mL/min >60 [facility] Work Phone: Comment on above: GFR Calc Estimated GFR (MDRD) Non-Af Amer 76 mL/min >60 [facility] Work Phone: Comment on above: Non- GFR Calc Platelets bldon 04-18-2022 Platelets (Bld) [#/Vol] 254 10*3/uL 150-450 [facility] Work Phone: Serum or plasma calcium brenda urement (mass/volume)on 04-18-2022 Calcium [Mass/Vol] 8.5 mg/dL 8.5-10.1 [facility] Work Phone: Comment on above: Moderate Lipemia, Re sult may be falsely decreased. Serum or plasma creatinine m easurement (mass/volume)on 04-18-2022 Creatinine [Mass/Vol] 1.05 mg/dL 0.70-1.30 [facility] Work Phone: Comment on above: The validity of the calculated GFR & GFRAA in patients over 70 years has not been determined. Clinical correlation is essential. Serum or plasma urea nitroge n measurement (mass/volume)on 04-18-2022 Urea nitrogen [Mass/Vol] 18 mg/dL 7-18 [facility] Work Phone: Thin prep Papanicolaou smear with manual screeningon 04-18-2022 Thin prep Papanicolaou smear with manual screening 5 5-15 [facility] Work Phone: Laboratory - Hematology and Cell countson 04-09-2022 HbA1c (Bld) [Mass fraction] 12.5 % 4.2-6.3 [facility] CNOVon 02-04-2022 [facility] Office Visit (GENSWS ) JAYLEN MEJIA ([id number]) 1960 [place] Date Time Provider Department 02/04/22 [...] non-ST elevation myocardial infarction (NSTEMI) 06/11/2018 Hyperlipidemia Functional Support Analyst Dr. Herrera Espinosa Hypertension Other emphysema (HCC) [...] repair of (more content not included)... Normal [facility] CNOVon 01-28-2022 [facility] Office Visit (GENSWS ) JAYLEN MEJIA ([id number]) 1960 [place] Date Time Provider Department 01/28/22 [...] non-ST elevation myocardial infarction (NSTEMI) 06/11/2018 Hyperlipidemia Functional Support Analyst Dr. Herrera Espinosa Hypertension Other emphysema (HCC) [...] and ROS (more content not included)... Normal [facility] CT PELVIS WO IVCONon 022 CT PELVIS WO IVCON * * *Final Report* * * DATE OF EXAM: Jan 28 2022 10:28AM [facility] 0556 - CT PELVIS WO [...] Fat-containing left inguinal hernia. Scattered colonic diverticula. 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 Herrera Espinosa Hypertension Other emphysema (HCC) [...] gauge x (more content not included)... Normal [facility] Absolute lymphocyte counton 01-01-2022 Lymphocytes Auto (Unsp spec) [#/Vol] 2.63 10*3/uL 0.83-4.51 [facility] Work Phone: Basophil percentageon 2021 Basophils/100 WBC (Bld) 0.3 % 0-1 [facility] Work Phone: Chloride [Moles/Vol] 98 mmol/L 98-107 [facility] Work Phone: Eosinophils/100 WBC (Bld) 3.4 % 0-5 [facility] Work Phone: Glucose [Mass/Vol] 283 mg/dL 74-106 [facility] Work Phone: Comment on above: Moderate Lipemia, Re sult may be falsely increased.Glucose result greater than or equal to 200 mg/dLsuggests DIABETES MELLITUS per A.D.A. criteria. Neutrophils (Bld) [#/Vol] 3.5 10*3/uL 2.0-7.7 [facility] Work Phone: Neutrophils/100 WBC (Bld) 51.0 % 47-70 [facility] Work Phone: Potassium [Moles/Vol] 4.2 mmol/L 3.5-5.1 [facility] Work Phone: Comment on above: Moderate Hemolysis, Result may be falsely increased. Sodium [Moles/Vol] 133 mmol/L 136-145 [facility] Work Phone: WBC (Bld) [#/Vol] 6.8 10*3/uL 4.4-11.0 [facility] Work Phone: Blood erythrocytes count (nu mber/volume)on 01-01-2022 RBC (Bld) [#/Vol] 4.96 10*6/uL 4.6-6.2 [facility] Work Phone: Blood hemoglobin measurement (mass/volume)on 01-01-2022 Hemoglobin (Bld) [Mass/Vol] 16.4 g/dL 13.0-16.5 [facility] Work Phone: Blood lymphocytes/100 leukoc yteson 01-01-2022 Lymphocytes/100 WBC (Bld) 38.7 % 19-41 [facility] Work Phone: Blood monocytes/100 leukocyt eson 01-01-2022 Monocytes/100 WBC (Bld) 6.3 % 0-10 [facility] Work Phone: Blood platelet mean volumeon 01-01-2022 Platelet mean volume (Bld) [Entitic vol] 10.3 fL 6.2-12.0 [facility] Work Phone: Determination of erythrocyte mean corpuscular volume (MCV)on 01-01-2022 MCV (RBC) [Entitic vol] 93.5 fL 80-94 [facility] Work Phone: Hematocrit Auto (Bld) [Volum e fraction]on 01-01-2022 Hematocrit (Bld) [Volume fraction] 46.4 % 40-54 [facility] Work Phone: Laboratory - Chemistry and C hemistry - challengeon 01-01-2022 CO2 [Moles/Vol] 30.0 mmol/L 21.0-32.0 [facility] Work Phone: Urea nitrogen/Creatinine [Mass ratio] 15.3 mg/mg 10-20 [facility] Work Phone: Laboratory - Hematology and Cell countson 01-01-2022 Erythrocyte distribution width (RBC) [Entitic vol] 41.0 fL 35.1-43.9 [facility] Work Phone: Erythrocyte distribution width (RBC) [Ratio] 11.9 % 11.6-14.6 [facility] Work Phone: [phone] Immature granulocytes/100 WBC (Bld) 0.300 % 0.0-0.9 [facility] Work Phone: [phone] Comment on above: IG% - Immature Granu locytes (promyelocytes, myelocytes and metamyelocytes) > 1% indicates that a LEFT SHIFT is Present. MCH (RBC) [Entitic mass] 33.1 pg 27.0-32.0 [facility] Work Phone: Nucleated RBC/100 WBC (Bld) [Ratio] 0 % 0-5 [facility] Work Phone: [phone] MCHC Auto (RBC) [Mass/Vol]on 01-01-2022 MCHC (RBC) [Mass/Vol] 35.3 g/dL 32-36 [facility] Work Phone: No Panel Informationon 01-01 Estimated GFR (MDRD) Amer 100 mL/min >60 [facility] Work Phone: Comment on above: GFR Calc Estimated GFR (MDRD) Non-Af Amer 82 mL/min >60 [facility] Work Phone: Comment on above: Non- GFR Calc Vitamin D 25-Hydroxy 13.3 ng/mL [facility] Work Phone: [phone] Comment on above: Vitamin D 25(OH) Sta tus Range Deficiency <20 ng/mL (50nmol/L) Insufficiency 20 - 30 ng/mL (50 - 75 nmol/L) Sufficiency 30 - 100 ng/mL (75 - 250 nmol/L) Toxicity >100 ng/mL (>250 nmol/L) Platelets bldon 01-01-2022 Platelets (Bld) [#/Vol] 258 10*3/uL 150-450 [facility] Work Phone: [phone] Serum or plasma calcium brenda urement (mass/volume)on 01-01-2022 Calcium [Mass/Vol] 8.2 mg/dL 8.5-10.1 [facility] Work Phone: Comment on above: Moderate Lipemia, Re sult may be falsely decreased. Serum or plasma creatinine m easurement (mass/volume)on 01-01-2022 Creatinine [Mass/Vol] 0.98 mg/dL 0.70-1.30 [facility] Work Phone: Comment on above: The validity of the calculated GFR & GFRAA in patients over 70 years has not been determined. Clinical correlation is essential. Serum or plasma urea nitroge n measurement (mass/volume)on 01-01-2022 Urea nitrogen [Mass/Vol] 15 mg/dL 7-18 [facility] Work Phone: Thin prep Papanicolaou smear with manual screeningon 01-01-2022 Thin prep Papanicolaou smear with manual screening 5 5-15 [facility] Work Phone: Whole blood hemoglobin A1c/t otal hemoglobin ratio (mass fraction)on 01-01-2022 HbA1c (Bld) [Mass fraction] 11.6 % 3.8-5.6 [facility] Work Phone: Comment on above: Normal < 5.7 % Predi abetic 5.7 - 6.4 % Diabetic >or= 6.5 % Please note range changes. CNOVon 07-18-2021 [facility] Office Visit (UCWSTR ) JAYLEN MEJIA ([id number]) 1960 M Date Time Provider Department 07/18/21 12:45 PM GAB CULVER [facility] During your visit today, we recorded the following information about you: Temperature Pulse Respiration Blood pressure 98 degrees 100/minute 18/minute 122/74 Weight 88 kg Gab Culver APRN.UTILIZATION SPECIALIST 07/18/2021 1:57 PM Signed Subjective HPI Nontoxic-appearing [...] type 2 in obese (HCC) - Hyperlipidemia Functional Support Analyst Dr. 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 Normal [facility] No Panel Informationon 07-18 Influenza Types A,B Direct FA (PORFIRIO) [facility] Work Phone: Basophil percentageon 2021 Chloride [Moles/Vol] 92 mmol/L 98-107 [facility] Work Phone: [phone] Cholesterol [Mass/Vol] 384 mg/dL <200 [facility] Work Phone: Comment on above: Moderate Icterus, Re sult may be falsely decreased. <200 mg/dL Desirable 200-240 mg/dL Borderline >240 mg/dL High Risk Glucose [Mass/Vol] 351 mg/dL 74-106 [facility] Work Phone: Comment on above: Moderate Lipemia, Re sult may be falsely increased.Glucose result greater than or equal to 200 mg/dLsuggests DIABETES MELLITUS per A.D.A. criteria. Potassium [Moles/Vol] 4.3 mmol/L 3.5-5.1 [facility] Work Phone: Comment on above: Moderate Hemolysis, Result may be falsely increased. Sodium [Moles/Vol] 127 mmol/L 136-145 [facility] Work Phone: Triglyceride [Mass/Vol] mg/dL [facility] Work Phone: Comment on above: The drugs N-Acetylcy steine and Metamizole may falsely depress this assay. Laboratory - Chemistry and C hemistry - challengeon 06-13-2021 CO2 [Moles/Vol] 29.0 mmol/L 21.0-32.0 [facility] Work Phone: [phone] Urea nitrogen/Creatinine [Mass ratio] 18.6 mg/mg 10-20 [facility] Work Phone: No Panel Informationon 06-13 Estimated GFR (MDRD) Amer 101 mL/min >60 [facility] Work Phone: [phone] Comment on above: GFR Calc Estimated GFR (MDRD) Non-Af Amer 84 mL/min >60 [facility] Work Phone: Comment on above: Non- GFR Calc Serum or plasma calcium brenda urement (mass/volume)on 06-13-2021 Calcium [Mass/Vol] 7.1 mg/dL 8.5-10.1 [facility] Work Phone: Comment on above: Moderate Lipemia, Re sult may be falsely decreased. Serum or plasma cholesterol in HDL measurement (mass/volume)on 06-13-2021 Cholesterol in HDL [Mass/Vol] 32 mg/dL [facility] Work Phone: Comment on above: The drugs N-Acetylcy steine and Metamizole may falsely depress this assay. Reference Range HDL <40 mg/dL Low HDL Cholesterol HDL >or= 60 mg/dL High HDL Cholesterol Serum or plasma cholesterol in VLDL measurement (mass/volume)on 06-13-2021 Cholesterol in VLDL [Mass/Vol] 200 mg/dL 5-40 [facility] Work Phone: Comment on above: Previous reported re sult: TNP mg/dLEdited by: JOHN on 06/13/21:1716 Serum or plasma creatinine m easurement (mass/volume)on 06-13-2021 Creatinine [Mass/Vol] 0.97 mg/dL 0.70-1.30 [facility] Work Phone: Comment on above: Moderate Icterus, Re sult may be falsely decreased.The validity of the calculated GFR & GFRAA in patients over 70 years has not been determined. Clinical correlation is essential. Serum or plasma low density lipoprotein (LDL) cholesterol measurement (mass/volume)on 06-13-2021 Cholesterol in LDL [Mass/Vol] TNP [facility] Work Phone: Comment on above: Test not performed Serum or plasma urea nitroge n measurement (mass/volume)on 06-13-2021 Urea nitrogen [Mass/Vol] 18 mg/dL 7-18 [facility] Work Phone: Thin prep Papanicolaou smear with manual screeningon 06-13-2021 Thin prep Papanicolaou smear with manual screening 6 5-15 [facility] Work Phone: Whole blood hemoglobin A1c/t otal hemoglobin ratio (mass fraction)on 06-13-2021 HbA1c (Bld) [Mass fraction] 11.7 % 3.8-5.6 [facility] Work Phone: Comment on above: Normal < 5.7 % Predi abetic 5.7 - 6.4 % Diabetic >or= 6.5 % Please note range changes. CNOVon 04-01-2021 [facility]OV Office Visit (UCWSTR ) JAYLEN MEJIA ([id number]) 1960 M Date Time Provider Department 04/01/21 8:00 AM MAXX OWEN [facility] During your visit today, we recorded the following information about you: Temperature Pulse Respiration Blood pressure 96.8 degrees 64/minute 18/minute 120/84 Weight 89.6 kg Maxx Owen APRN.[facility] 04/01/2021 8:24 AM Signed Patient Information [...] the esophagus (more content not included)... Normal [facility] Influenza virus A and B and SARS-CoV-2 (COVID-19) Ag panel - Upper respiratory specim SARS-CoV-2 (COVID-19) RNA HAYDER+probe Ql (Resp) [facility] Work Phone: No Panel Information SARS-CoV-2 & FLU Antigen (Rapid) [facility] Work Phone: Vital Signs Date Time Vital Sign Value Performing Clinician Facility 11-10-2024 10:14-0400 Body height 180.[address] Xiang Rogers DO Work Phone: [facility] 11-10-2024 10:14-0400 Body mass index (BMI) [Ratio] 30.1 kg/m2 Dr. Xiang Rogers DO Work Phone: [facility] 11-10-2024 10:14-0400 Body temperature 97 [degF] Dr. Xiang Rogers DO Work Phone: [facility] 11-10-2024 10:14-0400 Body weight 97.[address] Xiang Rogers DO Work Phone: [facility] 11-10-2024 10:14-0400 Diastolic blood pressure 64 mm[Hg] Dr. Xiang Rogers DO Work Phone: [facility] 11-10-2024 10:14-0400 Heart rate 96 /min Dr. Xiang Rogers DO Work Phone: [facility] 11-10-2024 10:14-0400 Respiratory rate 16 /min Dr. Xiang Rogers DO Work Phone: [facility] 11-10-2024 10:14-0400 SaO2% (BldA) [Mass fraction] 98 % Dr. Xiang Rogers DO Work Phone: [facility] 11-10-2024 10:14-0400 Systolic blood pressure 100 mm[Hg] Dr. Xiang Rogers DO Work Phone: [facility] 11-04-2024 13:57-0400 Body height 180.[address] Xiang Rogers DO Work Phone: [facility] 11-04-2024 13:57-0400 Body mass index (BMI) [Ratio] 28.8 kg/m2 Dr. Xiang Rogers DO Work Phone: [facility] 11-04-2024 13:57-0400 Body temperature 98.4 [degF] Dr. Xiang Rogers DO Work Phone: [facility] 11-04-2024 13:57-0400 Body weight 93.[address] Xiang Rogers DO Work Phone: [facility] 11-04-2024 13:57-0400 Diastolic blood pressure 60 mm[Hg] Dr. Xiang Rogers DO Work Phone: [facility] 11-04-2024 13:57-0400 Heart rate 92 /min Dr. Xiang Rogers DO Work Phone: [facility] 11-04-2024 13:57-0400 Respiratory rate 19 /min Dr. Xiang Rogers DO Work Phone: [facility] 11-04-2024 13:57-0400 SaO2% (BldA) [Mass fraction] 98 % Dr. Xiang Rogers DO Work Phone: [facility] 11-04-2024 13:57-0400 Systolic blood pressure 100 mm[Hg] Dr. Xiang Rogers DO Work Phone: [facility] 11-03-2024 10:29-0400 Body height 180.[address] Xiang Rogers DO Work Phone: [facility] 11-03-2024 10:29-0400 Body mass index (BMI) [Ratio] 28.5 kg/m2 Dr. Xiang Rogers DO Work Phone: [facility] 11-03-2024 10:29-0400 Body weight 92.[address] Xiang Rogers DO Work Phone: [facility] 11-03-2024 10:29-0400 Diastolic blood pressure 65 mm[Hg] Dr. Xiang Rogers DO Work Phone: [facility] 11-03-2024 10:29-0400 Heart rate 75 /min Dr. Xiang Rogers DO Work Phone: [facility] 11-03-2024 10:29-0400 Respiratory rate 18 /min Dr. Xiang Rogers DO Work Phone: [facility] 11-03-2024 10:29-0400 Systolic blood pressure 99 mm[Hg] Dr. Xiang Rogers DO Work Phone: [facility] 10-27-2024 01:16-0400 Body temperature 98.2 [degF] Dr. Xiang Rogers DO Work Phone: [facility] 10-27-2024 01:16-0400 Diastolic blood pressure 80 mm[Hg] Dr. Xiang Rogers DO Work Phone: [facility] 10-27-2024 01:16-0400 Heart rate 105 /min Dr. Xiang Rogers DO Work Phone: [facility] 10-27-2024 01:16-0400 Respiratory rate 14 /min Dr. Xiang Rogers DO Work Phone: [facility] 10-27-2024 01:16-0400 SaO2% (BldA) [Mass fraction] 99 % Dr. Xiang Rogers DO Work Phone: [facility] 10-27-2024 01:16-0400 Systolic blood pressure 119 mm[Hg] Dr. Xiang Rgoers DO Work Phone: [facility] 10-26-2024 23:38-0400 Body mass index (BMI) [Ratio] 28.4 kg/m2 Dr. Xiang Rogers DO Work Phone: [facility] 10-26-2024 23:38-0400 Body weight 92.[address] Xiang Rogers DO Work Phone: [facility] 10-26-2024 23:29-0400 Body height 180.[address] Xiang Rogers DO Work Phone: [facility] 10-23-2024 20:45-0400 Body temperature 97.8 [degF] Dr. Xiang Rogers DO Work Phone: [facility] 10-23-2024 20:45-0400 Diastolic blood pressure 73 mm[Hg] Dr. Xiang Rogers DO Work Phone: [facility] 10-23-2024 20:45-0400 Heart rate 93 /min Dr. Xiang Rogers DO Work Phone: [facility] 10-23-2024 20:45-0400 Respiratory rate 18 /min Dr. Xiang Rogers DO Work Phone: [facility] 10-23-2024 20:45-0400 SaO2% (BldA) [Mass fraction] 94 % Dr. Xiang Rogers DO Work Phone: [facility] 10-23-2024 20:45-0400 Systolic blood pressure 103 mm[Hg] Dr. Xiang Rogers DO Work Phone: [facility] 10-23-2024 19:03-0400 Body mass index (BMI) [Ratio] 30.2 kg/m2 Dr. Xiang Rogers DO Work Phone: [facility] 10-23-2024 19:03-0400 Body weight 98.[address] Xiang Rogers DO Work Phone: [facility] 10-23-2024 17:54-0400 Body height 180.[address] Xiang Rogers DO Work Phone: [facility] 10-21-2024 16:52-0400 Body temperature 98.2 [degF] Dr. Xiang Rogers DO Work Phone: [facility] 10-21-2024 16:52-0400 Diastolic blood pressure 62 mm[Hg] Dr. Xiang Rogers DO Work Phone: [facility] 10-21-2024 16:52-0400 Heart rate 95 /min Dr. Xiang Rogers DO Work Phone: [facility] 10-21-2024 16:52-0400 Respiratory rate 20 /min Dr. Xiang Rogers DO Work Phone: [facility] 10-21-2024 16:52-0400 SaO2% (BldA) [Mass fraction] 99 % Dr. Xiang Rogers DO Work Phone: [facility] 10-21-2024 16:52-0400 Systolic blood pressure 108 mm[Hg] Dr. Xiang Rogers DO Work Phone: [facility] 10-21-2024 16:26-0400 Body height 180.[address] Xiang Rogers DO Work Phone: [facility] 10-21-2024 16:26-0400 Body mass index (BMI) [Ratio] 27 kg/m2 Dr. Xiang Rogers DO Work Phone: [facility] 10-21-2024 16:26-0400 Body weight 87.[address] Xiang Rogers DO Work Phone: [facility] 10-19-2024 23:27-0400 Body temperature 97.9 [degF] Dr. Xiang Rogers DO Work Phone: [facility] 10-19-2024 23:27-0400 Diastolic blood pressure 76 mm[Hg] Dr. Xiang Rogers DO Work Phone: [facility] 10-19-2024 23:27-0400 Heart rate 98 /min Dr. Xiang Rogers DO Work Phone: [facility] 10-19-2024 23:27-0400 Respiratory rate 16 /min Dr. Xinag Rogers DO Work Phone: [facility] 10-19-2024 23:27-0400 SaO2% (BldA) [Mass fraction] 96 % Dr. Xiang Rogers DO Work Phone: [facility] 10-19-2024 23:27-0400 Systolic blood pressure 114 mm[Hg] Dr. Xiang Rogers DO Work Phone: [facility] 10-19-2024 18:20-0400 Body height 180.[address] Xiang Rogers DO Work Phone: [facility] 10-19-2024 18:20-0400 Body mass index (BMI) [Ratio] 27 kg/m2 Dr. Xiang Rogers DO Work Phone: [facility] 10-19-2024 18:20-0400 Body weight 87.[address] Xiang Rogers DO Work Phone: [facility] 09-27-2024 09:59-0400 Body height 180.[address] Xiang Rogers DO Work Phone: [facility] 09-27-2024 09:59-0400 Body mass index (BMI) [Ratio] 26 kg/m2 Dr. Xiang Rogers DO Work Phone: [facility] 09-27-2024 09:59-0400 Body weight 84.[address] Xiang Rogers DO Work Phone: [facility] 09-27-2024 09:59-0400 Diastolic blood pressure 64 mm[Hg] Dr. Xiang Rogers DO Work Phone: [facility] 09-27-2024 09:59-0400 Heart rate 83 /min Dr. Xiang Rogers DO Work Phone: [facility] 09-27-2024 09:59-0400 Respiratory rate 18 /min Dr. Xiang Rogers DO Work Phone: [facility] 09-27-2024 09:59-0400 Systolic blood pressure 103 mm[Hg] Dr. Xiang Rogers DO Work Phone: [facility] 09-21-2024 14:17-0400 Body temperature 97.8 [degF] Dr. Xiang Rogers DO Work Phone: [facility] 09-21-2024 14:17-0400 Diastolic blood pressure 54 mm[Hg] Dr. Xiang Rogers DO Work Phone: [facility] 09-21-2024 14:17-0400 Heart rate 82 /min Dr. Xiang Rogers DO Work Phone: [facility] 09-21-2024 14:17-0400 Respiratory rate 14 /min Dr. Xiang Rogers DO Work Phone: [facility] 09-21-2024 14:17-0400 SaO2% (BldA) [Mass fraction] 97 % Dr. Xiang Rogers DO Work Phone: [facility] 09-21-2024 14:17-0400 Systolic blood pressure 90 mm[Hg] Dr. Xiang Rogers DO Work Phone: [facility] 09-19-2024 10:52-0400 Body height 180.[address] Xiang Rogers DO Work Phone: [facility] 09-19-2024 10:52-0400 Body weight 87.[address] Xiang Rogers DO Work Phone: [facility] 09-18-2024 15:22-0400 Body mass index (BMI) [Ratio] 26.9 kg/m2 Dr. Xiang Rogers DO Work Phone: [facility] 09-18-2024 14:00-0400 Diastolic blood pressure 70 mm[Hg] Dr. Xiang Rogers DO Work Phone: [facility] 09-18-2024 14:00-0400 Heart rate 103 /min Dr. Xiang Rogers DO Work Phone: [facility] 09-18-2024 14:00-0400 Respiratory rate 20 /min Dr. Xiang Rogers DO Work Phone: [facility] 09-18-2024 14:00-0400 SaO2% (BldA) [Mass fraction] 97 % Dr. Xiang Rogers DO Work Phone: [facility] 09-18-2024 14:00-0400 Systolic blood pressure 120 mm[Hg] Dr. Xiang Rogers DO Work Phone: [facility] 09-18-2024 13:37-0400 Body temperature 98.2 [degF] Dr. Xiang Rogers DO Work Phone: [facility] 09-18-2024 09:51-0400 Body height 180.[address] Xiang Rogers DO Work Phone: [facility] 09-18-2024 09:51-0400 Body mass index (BMI) [Ratio] 26.9 kg/m2 Dr. Xiang Rogers DO Work Phone: [facility] 09-18-2024 09:51-0400 Body weight 87.[address] Xiang Rogers DO Work Phone: [facility] 08-02-2024 11:29-0400 Body mass index (BMI) [Ratio] 26.6 kg/m2 Dr. Xiang Rogers DO Work Phone: [facility] 08-02-2024 11:29-0400 Body temperature 96.4 [degF] Dr. Xiang Rogers DO Work Phone: [facility] 08-02-2024 11:29-0400 Body weight 84.[address] Xiang Rogers DO Work Phone: [facility] 08-02-2024 11:29-0400 Diastolic blood pressure 66 mm[Hg] Dr. Xiang Rogers DO Work Phone: [facility] 08-02-2024 11:29-0400 Heart rate 87 /min Dr. Xiang Rogers DO Work Phone: [facility] 08-02-2024 11:29-0400 Respiratory rate 16 /min Dr. Xiang Rogers DO Work Phone: [facility] 08-02-2024 11:29-0400 SaO2% (BldA) [Mass fraction] 98 % Dr. Xiang Rogers DO Work Phone: [facility] 08-02-2024 11:29-0400 Systolic blood pressure 118 mm[Hg] Dr. Xiang Rogers DO Work Phone: [facility] 07-29-2024 23:02-0400 Body temperature 97.2 [degF] Dr. Xiang Rogers DO Work Phone: [facility] 07-29-2024 23:02-0400 Diastolic blood pressure 69 mm[Hg] Dr. Xiang Rogers DO Work Phone: [facility] 07-29-2024 23:02-0400 Heart rate 82 /min Dr. Xiang Rogers DO Work Phone: [facility] 07-29-2024 23:02-0400 Respiratory rate 16 /min Dr. Xiang Rogers DO Work Phone: [facility] 07-29-2024 23:02-0400 SaO2% (BldA) [Mass fraction] 95 % Dr. Xiang Rogers DO Work Phone: [facility] 07-29-2024 23:02-0400 Systolic blood pressure 117 mm[Hg] Dr. Xiang Rogers DO Work Phone: [facility] 07-29-2024 20:00-0400 Body mass index (BMI) [Ratio] 26.8 kg/m2 Dr. Xiang Rogers DO Work Phone: [facility] 07-29-2024 20:00-0400 Body weight 87.[address] Xiang Rogers DO Work Phone: [facility] 07-14-2024 10:05-0400 Body temperature 98.2 [degF] Dr. Xiang Rogers DO Work Phone: [facility] 07-14-2024 10:05-0400 Body weight 85.[address] Xiang Rogers DO Work Phone: [facility] 07-14-2024 10:05-0400 Diastolic blood pressure 60 mm[Hg] Dr. Xiang Rogers DO Work Phone: [facility] 07-14-2024 10:05-0400 Heart rate 90 /min Dr. Xiang Rogers DO Work Phone: [facility] 07-14-2024 10:05-0400 Respiratory rate 16 /min Dr. Xiang Rogers DO Work Phone: [facility] 07-14-2024 10:05-0400 SaO2% (BldA) [Mass fraction] 96 % Dr. Xiang Rogers DO Work Phone: [facility] 07-14-2024 10:05-0400 Systolic blood pressure 113 mm[Hg] Dr. Xiang Rogers DO Work Phone: [facility] 07-12-2024 10:03-0400 Body mass index (BMI) [Ratio] 25.9 kg/m2 Dr. Xiang Rogers DO Work Phone: [facility] 07-12-2024 10:03-0400 Body weight 84.[address] Xiang Rogers DO Work Phone: [facility] 07-12-2024 10:03-0400 Diastolic blood pressure 72 mm[Hg] Dr. Xiang Rogers DO Work Phone: [facility] 07-12-2024 10:03-0400 Heart rate 84 /min Dr. Xiang Rogers DO Work Phone: [facility] 07-12-2024 10:03-0400 Respiratory rate 20 /min Dr. Xiang Rogers DO Work Phone: [facility] 07-12-2024 10:03-0400 SaO2% (BldA) [Mass fraction] 96 % Dr. Xiang Rogers DO Work Phone: [facility] 07-12-2024 10:03-0400 Systolic blood pressure 120 mm[Hg] Dr. Xiang Rogers DO Work Phone: [facility] 06-20-2024 10:00-0400 Body temperature 98.1 [degF] Dr. Xiagn Rogers DO Work Phone: [facility] 06-20-2024 10:00-0400 Diastolic blood pressure 68 mm[Hg] Dr. Xiang Rogers DO Work Phone: [facility] 06-20-2024 10:00-0400 Heart rate 74 /min Dr. Xiang Rogers DO Work Phone: [facility] 06-20-2024 10:00-0400 Respiratory rate 16 /min Dr. Xiang Rogers DO Work Phone: [facility] 06-20-2024 10:00-0400 SaO2% (BldA) [Mass fraction] 99 % Dr. Xiang Rogers DO Work Phone: [facility] 06-20-2024 10:00-0400 Systolic blood pressure 112 mm[Hg] Dr. Xiang Rogers DO Work Phone: [facility] 06-20-2024 04:34-0400 Body mass index (BMI) [Ratio] 26.7 kg/m2 Dr. Xiang Rogers DO Work Phone: [facility] 06-20-2024 04:34-0400 Body weight [address] Xiang Rogers DO Work Phone: [facility] 06-19-2024 10:35-0400 Inhaled oxygen flow rate 1 L/min Dr. Xiang Rogers DO Work Phone: [facility] 06-18-2024 05:54-0400 Inhaled oxygen concentration 30 % Dr. Xiang Rogers DO Work Phone: [facility] 05-21-2024 17:26-0500 Body mass index (BMI) [Ratio] 28.1 kg/m2 Dr. Xiang Rogers DO Work Phone: [facility] 05-21-2024 17:26-0500 Body temperature 98.1 [degF] Dr. Xiang Rogers DO Work Phone: [facility] 05-21-2024 17:26-0500 Body weight 88.[address] Xiang Rogers DO Work Phone: [facility] 05-21-2024 17:26-0500 Diastolic blood pressure 83 mm[Hg] Dr. Xiang Rogers DO Work Phone: [facility] 05-21-2024 17:26-0500 Heart rate 102 /min Dr. Xiang Rogers DO Work Phone: [facility] 05-21-2024 17:26-0500 Respiratory rate 16 /min Dr. Xiang Rogers DO Work Phone: [facility] 05-21-2024 17:26-0500 SaO2% (BldA) [Mass fraction] 97 % Dr. Xiang Rogers DO Work Phone: [facility] 05-21-2024 17:26-0500 Systolic blood pressure 115 mm[Hg] Dr. Xiang Rogers DO Work Phone: [facility] 05-17-2024 12:50-0500 Body temperature 98 [degF] Dr. Xiang Rogers DO Work Phone: [facility] 05-17-2024 12:50-0500 Body weight 86.[address] Xiang Rogers DO Work Phone: [facility] 05-17-2024 12:50-0500 Diastolic blood pressure 70 mm[Hg] Dr. Xiang Rogers DO Work Phone: [facility] 05-17-2024 12:50-0500 Heart rate 90 /min Dr. Xiang Rogers DO Work Phone: [facility] 05-17-2024 12:50-0500 Respiratory rate 16 /min Dr. Xiang Rogers DO Work Phone: [facility] 05-17-2024 12:50-0500 SaO2% (BldA) [Mass fraction] 97 % Dr. Xiang Rogers DO Work Phone: [facility] 05-17-2024 12:50-0500 Systolic blood pressure 108 mm[Hg] Dr. Xiang Rogers DO Work Phone: [facility] 05-03-2024 10:53-0500 Body mass index (BMI) [Ratio] 27.6 kg/m2 Dr. Xiang Rogers DO Work Phone: [facility] 05-03-2024 10:53-0500 Body temperature 97.8 [degF] Dr. Xiang Rogers DO Work Phone: [facility] 05-03-2024 10:53-0500 Body weight 87.[address] Xiang Rogers DO Work Phone: [facility] 05-03-2024 10:53-0500 Diastolic blood pressure 62 mm[Hg] Dr. Xiang Rogers DO Work Phone: [facility] 05-03-2024 10:53-0500 Heart rate 93 /min Dr. Xiang Rogers DO Work Phone: [facility] 05-03-2024 10:53-0500 Respiratory rate 18 /min Dr. Xiang Rogers DO Work Phone: [facility] 05-03-2024 10:53-0500 SaO2% (BldA) [Mass fraction] 97 % Dr. Xiang Rogers DO Work Phone: [facility] 05-03-2024 10:53-0500 Systolic blood pressure 120 mm[Hg] Dr. Xiang Rogers DO Work Phone: [facility] 04-20-2024 07:15-0500 Body weight 87.[address] Xiang Rogers DO Work Phone: [facility] 04-19-2024 08:51-0500 Body mass index (BMI) [Ratio] 27.8 kg/m2 Dr. Xiang Rogers DO Work Phone: [facility] 04-08-2024 13:27-0500 Body temperature 98.2 [degF] Dr. Xiang Rogers DO Work Phone: [facility] 04-08-2024 13:27-0500 Body weight 87.[address] Xiang Rogers DO Work Phone: [facility] 04-08-2024 13:27-0500 Diastolic blood pressure 74 mm[Hg] Dr. Xiang Rogers DO Work Phone: [facility] 04-08-2024 13:27-0500 Heart rate 78 /min Dr. Xiang Rogers DO Work Phone: [facility] 04-08-2024 13:27-0500 Respiratory rate 16 /min Dr. Xiang Rogers DO Work Phone: [facility] 04-08-2024 13:27-0500 SaO2% (BldA) [Mass fraction] 97 % Dr. Xiang Rogers DO Work Phone: [facility] 04-08-2024 13:27-0500 Systolic blood pressure 127 mm[Hg] Dr. Xiang Rogers DO Work Phone: [facility] 04-01-2024 09:51-0500 Body mass index (BMI) [Ratio] 27.8 kg/m2 Dr. Xiang Rogers DO Work Phone: [facility] 04-01-2024 09:51-0500 Body weight 87.[address] Xiang Rogers DO Work Phone: [facility] 04-01-2024 09:51-0500 Diastolic blood pressure 80 mm[Hg] Dr. Xiang Rogers DO Work Phone: [facility] 04-01-2024 09:51-0500 Heart rate 76 /min Dr. Xiang Rogers DO Work Phone: [facility] 04-01-2024 09:51-0500 Respiratory rate 18 /min Dr. Xiang Rogers DO Work Phone: [facility] 04-01-2024 09:51-0500 SaO2% (BldA) [Mass fraction] 99 % Dr. Xiang Rogers DO Work Phone: [facility] 04-01-2024 09:51-0500 Systolic blood pressure 136 mm[Hg] Dr. Xiang Rogers DO Work Phone: [facility] 03-22-2024 11:03-0500 Body temperature 97.8 [degF] Dr. Xiang Rogers DO Work Phone: [facility] 03-22-2024 11:03-0500 Body weight 87.[address] Xiang Rogers DO Work Phone: [facility] 03-22-2024 11:03-0500 Diastolic blood pressure 59 mm[Hg] Dr. Xiang Rogers DO Work Phone: [facility] 03-22-2024 11:03-0500 Heart rate 90 /min Dr. Xiang Rogers DO Work Phone: [facility] 03-22-2024 11:03-0500 Respiratory rate 16 /min Dr. Xiang Rogers DO Work Phone: [facility] 03-22-2024 11:03-0500 SaO2% (BldA) [Mass fraction] 97 % Dr. Xiang Rogers DO Work Phone: [facility] 03-22-2024 11:03-0500 Systolic blood pressure 112 mm[Hg] Dr. Xiang Rogers DO Work Phone: [facility] 02-24-2024 13:07-0500 Body mass index (BMI) [Ratio] 27.9 kg/m2 Dr. Xiang Rogers DO Work Phone: [facility] 02-24-2024 13:07-0500 Body temperature 97.6 [degF] Dr. Xiang Rogers DO Work Phone: [facility] 02-24-2024 13:07-0500 Body weight 88.[address] Xiang Rogers DO Work Phone: [facility] 02-24-2024 13:07-0500 Diastolic blood pressure 76 mm[Hg] Dr. Xiang Rogers DO Work Phone: [facility] 02-24-2024 13:07-0500 Heart rate 72 /min Dr. Xiang Rogers DO Work Phone: [facility] 02-24-2024 13:07-0500 Respiratory rate 16 /min Dr. Xiang Rogers DO Work Phone: [facility] 02-24-2024 13:07-0500 SaO2% (BldA) [Mass fraction] 97 % Dr. Xiang Rogers DO Work Phone: [facility] 02-24-2024 13:07-0500 Systolic blood pressure 126 mm[Hg] Dr. Xiang Rogers DO Work Phone: [facility] 02-24-2024 11:24-0500 Body temperature 98.4 [degF] Dr. Xiang Rogers DO Work Phone: [facility] 02-24-2024 11:24-0500 Body weight 88.[address] Xiang Rogers DO Work Phone: [facility] 02-24-2024 11:24-0500 Diastolic blood pressure 61 mm[Hg] Dr. Xiang Rogers DO Work Phone: [facility] 02-24-2024 11:24-0500 Heart rate 64 /min Dr. Xiang Rogers DO Work Phone: [facility] 02-24-2024 11:24-0500 Respiratory rate 16 /min Dr. Xiang Rogers DO Work Phone: [facility] 02-24-2024 11:24-0500 SaO2% (BldA) [Mass fraction] 98 % Dr. Xiang Rogers DO Work Phone: [facility] 02-24-2024 11:24-0500 Systolic blood pressure 105 mm[Hg] Dr. Xiang Rogers DO Work Phone: [facility] 12-31-2023 09:26-0400 Body mass index (BMI) [Ratio] 25.95 kg/m2 [facility] [employer] Work Phone: [facility] 12-31-2023 09:26-0400 Body temperature 97.5 [degF] [facility] [employer]IST Work Phone: [facility] 12-31-2023 09:26-0400 Body weight 84.4 kg [facility] [employer]ATION [employer]IST Work Phone: [facility] 12-31-2023 09:26-0400 Diastolic blood pressure 75 mm[Hg] [facility] [employer]ATION [employer]IST Work Phone: [facility] 12-31-2023 09:26-0400 Heart rate 78 /min [facility] [employer]ATION [employer]IST Work Phone: [facility] 12-31-2023 09:26-0400 Respiratory rate 18 /min [facility] [employer]ILIZATION SPECIALIST Work Phone: [facility] 12-31-2023 09:26-0400 SaO2% (BldA) [Mass fraction] 96 % [facility] [employer]ILIZATION SPECIALIST Work Phone: [facility] 12-31-2023 09:26-0400 Systolic blood pressure 126 mm[Hg] [facility] [employer]IL[employer]ATION [employer]IST Work Phone: [facility] 06-02-2023 12:53-0500 Body height 180.[address] Xiang Rogers Work Phone: [facility] 06-02-2023 12:53-0500 Body mass index (BMI) [Ratio] 26.9 kg/m2 Dr. Xiang Rogers Work Phone: [facility] 06-02-2023 12:53-0500 Body temperature 97.4 [degF] Dr. Xiang Rogers Work Phone: [facility] 06-02-2023 12:53-0500 Body weight 87.[address] Xiang Rogers Work Phone: [facility] 06-02-2023 12:53-0500 Diastolic blood pressure 66 mm[Hg] Dr. Xiang Rgoers Work Phone: [facility] 06-02-2023 12:53-0500 Heart rate 60 /min Dr. Xiang Rogers Work Phone: [facility] 06-02-2023 12:53-0500 Respiratory rate 18 /min Dr. Xiang Rogers Work Phone: [facility] 06-02-2023 12:53-0500 SaO2% (BldA) [Mass fraction] 96 % Dr. Xiang Rogers Work Phone: [facility] 06-02-2023 12:53-0500 Systolic blood pressure 125 mm[Hg] Dr. Xiang Rogers Work Phone: [facility] 05-24-2023 02:38-0500 Body temperature 97.7 [degF] Dr. Xiang Rogers Work Phone: [facility] 05-24-2023 02:38-0500 Diastolic blood pressure 61 mm[Hg] Dr. Xiang Rogers Work Phone: [facility] 05-24-2023 02:38-0500 Heart rate 71 /min Dr. Xiang Rogers Work Phone: [facility] 05-24-2023 02:38-0500 Respiratory rate 18 /min Dr. Xiang Rogers Work Phone: [facility] 05-24-2023 02:38-0500 SaO2% (BldA) [Mass fraction] 96 % Dr. Xiang Rogers Work Phone: [facility] 05-24-2023 02:38-0500 Systolic blood pressure 99 mm[Hg] Dr. Xiang Rogers Work Phone: [facility] 05-24-2023 00:23-0500 Body height 180.[address] Xiang Rogers Work Phone: [facility] 05-24-2023 00:23-0500 Body mass index (BMI) [Ratio] 25.8 kg/m2 Dr. Xiang Rogers Work Phone: [facility] 05-24-2023 00:23-0500 Body weight [address] Xiang Rogers Work Phone: [facility] 04-25-2023 17:36-0500 Body temperature 95 [degF] Dr. Xiang Rogers Work Phone: [facility] 04-25-2023 17:36-0500 Diastolic blood pressure 73 mm[Hg] Dr. Xiang Rogers Work Phone: [facility] 04-25-2023 17:36-0500 Heart rate 67 /min Dr. Xiang Rogers Work Phone: [facility] 04-25-2023 17:36-0500 Respiratory rate 18 /min Dr. Xiang Rogers Work Phone: [facility] 04-25-2023 17:36-0500 Systolic blood pressure 139 mm[Hg] Dr. Xiang Rogers Work Phone: [facility] 04-25-2023 15:25-0500 Body height 180.[address] Xiang Rogers Work Phone: [facility] 04-25-2023 15:25-0500 Body mass index (BMI) [Ratio] 26.7 kg/m2 Dr. Xiang Rogers Work Phone: [facility] 04-25-2023 15:25-0500 Body weight 87.[address] Xiang Rogers Work Phone: [facility] 04-25-2023 15:25-0500 SaO2% (BldA) [Mass fraction] 96 % Dr. Xiang Rogers Work Phone: [facility] 04-15-2023 09:24-0500 Body height 180.[address] Xiang Rogers Work Phone: [facility] 04-15-2023 09:24-0500 Body mass index (BMI) [Ratio] 26.9 kg/m2 Dr. Xiang Rogers Work Phone: [facility] 04-15-2023 09:24-0500 Body temperature 97.2 [degF] Dr. Xiang Rogers Work Phone: [facility] 04-15-2023 09:24-0500 Body weight 87.[address] Xiang Rogers Work Phone: [facility] 04-15-2023 09:24-0500 Diastolic blood pressure 70 mm[Hg] Dr. Xiang Rogers Work Phone: [facility] 04-15-2023 09:24-0500 Heart rate 81 /min Dr. Xiang Rogers Work Phone: [facility] 04-15-2023 09:24-0500 Respiratory rate 16 /min Dr. Xiang Rogers Work Phone: [facility] 04-15-2023 09:24-0500 SaO2% (BldA) [Mass fraction] 98 % Dr. Xiang Rogers Work Phone: [facility] 04-15-2023 09:24-0500 Systolic blood pressure 128 mm[Hg] Dr. Xiang Rogers Work Phone: [facility] 01-26-2023 15:28-0400 Body mass index (BMI) [Ratio] 27.3 kg/m2 Dr. Xiang Rogers Work Phone: [facility] 01-26-2023 15:28-0400 Body weight 88.[address] Xiang Rogers Work Phone: [facility] 01-26-2023 15:28-0400 Diastolic blood pressure 56 mm[Hg] Dr. Xiang Rogers Work Phone: [facility] 01-26-2023 15:28-0400 Heart rate 70 /min Dr. Xiang Rogers Work Phone: [facility] 01-26-2023 15:28-0400 Respiratory rate 18 /min Dr. Xiang Rogers Work Phone: [facility] 01-26-2023 15:28-0400 Systolic blood pressure 118 mm[Hg] Dr. Xiang Rogers Work Phone: [facility] 01-13-2023 09:27-0400 Body mass index (BMI) [Ratio] 27 kg/m2 Dr. Xiang Rogers Work Phone: [facility] 01-13-2023 09:27-0400 Body temperature 98.4 [degF] Dr. Xiang Rogers Work Phone: [facility] 01-13-2023 09:27-0400 Body weight 87.[address] Xiang Rogers Work Phone: [facility] 01-13-2023 09:27-0400 Diastolic blood pressure 70 mm[Hg] Dr. Xiang Rogers Work Phone: [facility] 01-13-2023 09:27-0400 Heart rate 61 /min Dr. Xiang Rogers Work Phone: [facility] 01-13-2023 09:27-0400 Respiratory rate 16 /min Dr. Xiang Rogers Work Phone: [facility] 01-13-2023 09:27-0400 SaO2% (BldA) [Mass fraction] 97 % Dr. Xiang Rogers Work Phone: [facility] 01-13-2023 09:27-0400 Systolic blood pressure 120 mm[Hg] Dr. Xiang Rogers Work Phone: [facility] 05-21-2022 01:34-0500 Body height 180.[address] Xiang Rogers Work Phone: [facility] 05-21-2022 01:34-0500 Body mass index (BMI) [Ratio] 29.1 kg/m2 Dr. Xiang Rogers Work Phone: [facility] 05-21-2022 01:34-0500 Body temperature 98.8 [degF] Dr. Xiang Rogers Work Phone: [facility] 05-21-2022 01:34-0500 Body weight 94.[address] Xiang Rogers Work Phone: [facility] 05-21-2022 01:34-0500 Diastolic blood pressure 79 mm[Hg] Dr. Xiang Rogers Work Phone: [facility] 05-21-2022 01:34-0500 Heart rate 74 /min Dr. Xiang Rogers Work Phone: [facility] 05-21-2022 01:34-0500 Respiratory rate 17 /min Dr. Xiang Rogers Work Phone: [facility] 05-21-2022 01:34-0500 SaO2% (BldA) [Mass fraction] 98 % Dr. Xiang Rogers Work Phone: [facility] 05-21-2022 01:34-0500 Systolic blood pressure 143 mm[Hg] Dr. Xiang Rogers Work Phone: [facility] 05-19-2022 13:35-0500 Body mass index (BMI) [Ratio] 28.5 kg/m2 Dr. Xiang Rogers Work Phone: [facility] 05-19-2022 13:35-0500 Body weight 92.[address] Xiang Rogers Work Phone: [facility] 05-19-2022 13:35-0500 Diastolic blood pressure 69 mm[Hg] Dr. Xiang Rogers Work Phone: [facility] 05-19-2022 13:35-0500 Heart rate 62 /min Dr. Xiang Rogers Work Phone: [facility] 05-19-2022 13:35-0500 Respiratory rate 18 /min Dr. Xiang Rogers Work Phone: [facility] 05-19-2022 13:35-0500 SaO2% (BldA) [Mass fraction] 96 % Dr. Xiang Rogers Work Phone: [facility] 05-19-2022 13:35-0500 Systolic blood pressure 128 mm[Hg] Dr. Xiang Rogers Work Phone: [facility] 04-24-2022 13:27-0500 Body mass index (BMI) [Ratio] 28.3 kg/m2 Dr. Xiang Rogers Work Phone: [facility] 04-24-2022 13:27-0500 Body temperature 98.3 [degF] Dr. Xiang Rogers Work Phone: [facility] 04-24-2022 13:27-0500 Body weight 92.[address] Xiang Rogers Work Phone: [facility] 04-24-2022 13:27-0500 Diastolic blood pressure 62 mm[Hg] Dr. Xiang Rogers Work Phone: [facility] 04-24-2022 13:27-0500 Heart rate 61 /min Dr. Xiang Rogers Work Phone: [facility] 04-24-2022 13:27-0500 Respiratory rate 14 /min Dr. Xiang Rogers Work Phone: [facility] 04-24-2022 13:27-0500 SaO2% (BldA) [Mass fraction] 97 % Dr. Xiang Rogers Work Phone: [facility] 04-24-2022 13:27-0500 Systolic blood pressure 104 mm[Hg] Dr. Xiang Rogers Work Phone: [facility] 04-19-2022 14:53-0500 SaO2% (BldA) [Mass fraction] 95 % Dr. Xiang Rogers Work Phone: [facility] 04-19-2022 09:30-0500 Body temperature 97.9 [degF] Dr. Xiang Rogers Work Phone: [facility] 04-19-2022 09:30-0500 Diastolic blood pressure 77 mm[Hg] Dr. Xiang Rogers Work Phone: [facility] 04-19-2022 09:30-0500 Heart rate 79 /min Dr. Xiang Rogers Work Phone: [facility] 04-19-2022 09:30-0500 Respiratory rate 20 /min Dr. Xiang Rogers Work Phone: [facility] 04-19-2022 09:30-0500 Systolic blood pressure 110 mm[Hg] Dr. Xiang Rogers Work Phone: [facility] 04-18-2022 10:11-0500 Body weight 93.[address] Xiang Rogers Work Phone: [facility] 04-18-2022 05:51-0500 Body temperature 98 [degF] Dr. Xiang Rogers Work Phone: [facility] Work Phone: 04-18-2022 05:51-0500 Diastolic blood pressure 76 mm[Hg] Dr. Xiang Rogers Work Phone: [facility] Work Phone: 04-18-2022 05:51-0500 Heart rate 80 /min Dr. Xiang Rogers Work Phone: [facility] Work Phone: 04-18-2022 05:51-0500 Respiratory rate 18 /min Dr. Xiang Rogers Work Phone: [facility] Work Phone: 04-18-2022 05:51-0500 SaO2% (BldA) [Mass fraction] 92 % Dr. Xiang Rogers Work Phone: [facility] Work Phone: 04-18-2022 05:51-0500 Systolic blood pressure 123 mm[Hg] Dr. Xiang Rogers Work Phone: [facility] Work Phone: 04-18-2022 01:36-0500 Body height 180.[address] Xiang Rogers Work Phone: [facility] Work Phone: 04-18-2022 01:36-0500 Body mass index (BMI) [Ratio] 28.6 kg/m2 Dr. Xiang Rogers Work Phone: [facility] 04-18-2022 01:36-0500 Body weight 93.[address] Xiang Rogers Work Phone: [facility] Work Phone: 04-09-2022 14:00-0500 Body mass index (BMI) [Ratio] 27.4 kg/m2 Dr. Xiang Rogers Work Phone: [facility] 04-09-2022 14:00-0500 Body temperature 98.4 [degF] Dr. Xiang Rogers Work Phone: [facility] 04-09-2022 14:00-0500 Body weight 89.[address] Xiang Rogers Work Phone: [facility] 04-09-2022 14:00-0500 Diastolic blood pressure 78 mm[Hg] Dr. Xiang Rogers Work Phone: [facility] 04-09-2022 14:00-0500 Heart rate 65 /min Dr. Xiang Rogers Work Phone: [facility] 04-09-2022 14:00-0500 Respiratory rate 16 /min Dr. Xiang Rogers Work Phone: [facility] 04-09-2022 14:00-0500 SaO2% (BldA) [Mass fraction] 99 % Dr. Xiang Rogers Work Phone: [facility] 04-09-2022 14:00-0500 Systolic blood pressure 132 mm[Hg] Dr. Xiang Rogers Work Phone: [facility] 03-11-2022 12:30-0500 Body height 180.[address] Xiang Rogers Work Phone: [facility] Work Phone: 03-11-2022 12:30-0500 Body mass index (BMI) [Ratio] 26.9 kg/m2 Dr. Xiang Rogers Work Phone: [facility] 03-11-2022 12:30-0500 Body temperature 98 [degF] Dr. Xiang Rogers Work Phone: [facility] 03-11-2022 12:30-0500 Body weight 87.[address] Xiang Rogers Work Phone: [facility] 03-11-2022 12:30-0500 Diastolic blood pressure 76 mm[Hg] Dr. Xiang Rogers Work Phone: [facility] 03-11-2022 12:30-0500 Heart rate 87 /min Dr. Xiang Rogers Work Phone: [facility] 03-11-2022 12:30-0500 Respiratory rate 16 /min Dr. Xiang Rogers Work Phone: [facility] 03-11-2022 12:30-0500 SaO2% (BldA) [Mass fraction] 97 % Dr. Xiang Rogers Work Phone: [facility] 03-11-2022 12:30-0500 Systolic blood pressure 153 mm[Hg] Dr. Xiang Rogers Work Phone: [facility] 03-01-2022 19:47-0500 Body height 180.[address] Xiang Rogers Work Phone: [facility] Work Phone: 03-01-2022 19:47-0500 Body mass index (BMI) [Ratio] 27.9 kg/m2 Dr. Xiang Rogers Work Phone: [facility] 03-01-2022 19:47-0500 Body temperature 96.8 [degF] Dr. Xiang Rogers Work Phone: [facility] 03-01-2022 19:47-0500 Body weight [address] Xiang Rogers Work Phone: [facility] 03-01-2022 19:47-0500 Diastolic blood pressure 75 mm[Hg] Dr. Xiang Rogers Work Phone: [facility] 03-01-2022 19:47-0500 Heart rate 103 /min Dr. Xiang Rogers Work Phone: [facility] 03-01-2022 19:47-0500 Respiratory rate 16 /min Dr. Xiang Rogers Work Phone: [facility] 03-01-2022 19:47-0500 SaO2% (BldA) [Mass fraction] 94 % Dr. Xiang Rogers Work Phone: [facility] 03-01-2022 19:47-0500 Systolic blood pressure 141 mm[Hg] Dr. Xiang Rogers Work Phone: [facility] 02-04-2022 08:30-0400 Body temperature 98.01 [degF] Yamilka [...] 01-28-2022 10:40-0400 Body weight 87.36 kg Yamilka Parkeh MD Work Phone: [facility] [...] 180.[address] Xiang Rogers Work Phone: [facility] Work Phone: 01-01-2022 14:08-0400 Body mass index (BMI) [Ratio] 27.3 kg/m2 Dr. Xiang Rogers Work Phone: [facility] Work Phone: 01-01-2022 14:08-0400 Body temperature 98.5 [degF] Dr. Xiang Rogers Work Phone: [facility] Work Phone: 01-01-2022 14:08-0400 Body weight 89.[address] Xiang Rogers Work Phone: [facility] Work Phone: 01-01-2022 14:08-0400 Diastolic blood pressure 64 mm[Hg] Dr. Xiang Rogers Work Phone: [facility] Work Phone: 01-01-2022 14:08-0400 Heart rate 64 /min Dr. Xiang Rogers Work Phone: [facility] Work Phone: 01-01-2022 14:08-0400 Respiratory rate 18 /min Dr. Xiang Rogers Work Phone: [facility] Work Phone: 01-01-2022 14:08-0400 SaO2% (BldA) [Mass fraction] 95 % Dr. Xiang Rogers Work Phone: [facility] Work Phone: 01-01-2022 14:08-0400 Systolic blood pressure 122 mm[Hg] Dr. Xiang Rogers Work Phone: [facility] Work Phone: 12-09-2021 01:16-0400 Diastolic blood pressure 71 mm[Hg] Dr. Xiang Rogers Work Phone: [facility] Work Phone: 12-09-2021 01:16-0400 Heart rate 74 /min Dr. Xiang Rogers Work Phone: [facility] Work Phone: 12-09-2021 01:16-0400 Respiratory rate 19 /min Dr. Xiang Rogers Work Phone: [facility] Work Phone: 12-09-2021 01:16-0400 SaO2% (BldA) [Mass fraction] 95 % Dr. Xiang Rogers Work Phone: [facility] Work Phone: 12-09-2021 01:16-0400 Systolic blood pressure 144 mm[Hg] Dr. Xiang Rogers Work Phone: [facility] Work Phone: 12-08-2021 23:18-0400 Body height 180.[address] Xiang Rogers Work Phone: [facility] Work Phone: 12-08-2021 23:18-0400 Body mass index (BMI) [Ratio] 26.4 kg/m2 Dr. iXang Rogers Work Phone: [facility] Work Phone: 12-08-2021 23:18-0400 Body temperature 97.9 [degF] Dr. Xiang Rogers Work Phone: [facility] Work Phone: 12-08-2021 23:18-0400 Body weight 86.[address] Xiang Rogers Work Phone: [facility] Work Phone: 09-18-2021 14:32-0400 Body mass index (BMI) [Ratio] 26.7 kg/m2 Dr. Xiang Rogers Work Phone: [facility] Work Phone: 09-18-2021 14:32-0400 Body temperature 97.2 [degF] Dr. Xiang Rogers Work Phone: [facility] Work Phone: 09-18-2021 14:32-0400 Body weight 87.[address] Xiang Rogers Work Phone: [facility] Work Phone: 09-18-2021 14:32-0400 Diastolic blood pressure 70 mm[Hg] Dr. Xiang Rogers Work Phone: [facility] Work Phone: 09-18-2021 14:32-0400 Heart rate 86 /min Dr. Xiang Rogers Work Phone: [facility] Work Phone: 09-18-2021 14:32-0400 Respiratory rate 16 /min Dr. Xiang Rogers Work Phone: [facility] Work Phone: 09-18-2021 14:32-0400 SaO2% (BldA) [Mass fraction] 97 % Dr. Xiang Rogers Work Phone: [facility] Work Phone: 09-18-2021 14:32-0400 Systolic blood pressure 116 mm[Hg] Dr. Xiang Rogers Work Phone: [facility] Work Phone: 07-19-2021 00:14-0400 Heart rate 78 /min Dr. Xiang Rogers Work Phone: [facility] Work Phone: 07-19-2021 00:14-0400 Respiratory rate 18 /min Dr. Xiang Rogers Work Phone: [facility] Work Phone: 07-19-2021 00:14-0400 SaO2% (BldA) [Mass fraction] 95 % Dr. Xiang Rogers Work Phone: [facility] Work Phone: 07-18-2021 20:48-0400 Body height 180.[address] Xiang Rogers Work Phone: [facility] Work Phone: 07-18-2021 20:48-0400 Body mass index (BMI) [Ratio] 26.9 kg/m2 Dr. Xiang Rogers Work Phone: [facility] Work Phone: 07-18-2021 20:48-0400 Body temperature 98.8 [degF] Dr. Xiang Rogers Work Phone: [facility] Work Phone: 07-18-2021 20:48-0400 Body weight 87.[address] Xiang Rogers Work Phone: [facility] Work Phone: 07-18-2021 20:48-0400 Diastolic blood pressure 83 mm[Hg] Dr. Xiang Rogers Work Phone: [facility] Work Phone: 07-18-2021 20:48-0400 Systolic blood pressure 151 mm[Hg] Dr. Xiang Rogers Work Phone: [facility] Work Phone: 07-18-2021 12:52-0400 Body temperature 98.01 [degF] Gab Culver HOT DIPPER.UTILIZATION SPECIALIST Work Phone: [facility] 07-18-2021 12:52-0400 Body weight 88 kg Gab Culver HOT DIPPER.UTILIZATION SPECIALIST Work Phone: [facility] 07-18-2021 12:52-0400 Diastolic blood pressure 74 mm[Hg] Gab Culver HOT DIPPER.UTILIZATION SPECIALIST Work Phone: [facility] 07-18-2021 12:52-0400 Heart rate 100 /min Gab Culver HOT DIPPER.UTILIZATION SPECIALIST Work Phone: [facility] 07-18-2021 12:52-0400 Respiratory rate 18 /min Gab Culver HOT DIPPER.UTILIZATION SPECIALIST Work Phone: [facility] 07-18-2021 12:52-0400 SaO2% (BldA) [Mass fraction] 96 % Gab Culver HOT DIPPER.UTILIZATION SPECIALIST Work Phone: [facility] 07-18-2021 12:52-0400 Systolic blood pressure 122 mm[Hg] Gab Culver HOT DIPPER.UTILIZATION SPECIALIST Work Phone: [facility] 06-13-2021 13:57-0500 Body temperature 97.8 [degF] Dr. Xiang Rogers Work Phone: [facility] Work Phone: 06-13-2021 13:57-0500 Body weight 88.[address] Xiang Rogers Work Phone: [facility] Work Phone: 06-13-2021 13:57-0500 Diastolic blood pressure 74 mm[Hg] Dr. Xiang Rogers Work Phone: [facility] Work Phone: 06-13-2021 13:57-0500 Heart rate 68 /min Dr. Xiang Rogers Work Phone: [facility] Work Phone: 06-13-2021 13:57-0500 Respiratory rate 16 /min Dr. Xiang Rogers Work Phone: [facility] Work Phone: 06-13-2021 13:57-0500 SaO2% (BldA) [Mass fraction] 98 % Dr. Xiang Rogers Work Phone: [facility] Work Phone: 06-13-2021 13:57-0500 Systolic blood pressure 130 mm[Hg] Dr. Xiang Rogers Work Phone: [facility] Work Phone: Encounters Encounter Date Encounter Type Care Provider Facility Start: 11-10-2024 End: 11-10-[address] Xiang Rogers DO Work Phone: -[facility] Start: 11-10-2024 End: 11-10-2024 Leah GARSIA -[facility] Work Phone: Start: 11-04-2024 End: 11-04-2024 Dr. Xiang Will DO -[facility] Work Phone: Start: 11-04-2024 End: 11-04-[address] Xiang Rogers DO Work Phone: -[facility] Start: 11-03-2024 End: 11-03-2024 Magaly Abdi DC -[facility] Work Phone: Start: 11-03-2024 End: 11-03-[address] Xiang Rogers DO Work Phone: -[facility] Start: 10-26-2024 End: 10-27-2024 Dr. Xiang Rogers DO Work Phone: -Emergency Department Work Phone: Start: 10-26-2024 End: 10-27-2024 Emergency department patient visit Dr. Xiang Rogers DO Work Phone: -Emergency Department Start: 10-23-2024 End: 10-23-2024 Dr. Xiang Rogers [...] Start: 10-11-2024 ambulatory Ronit Galvez NP Facili ty:[facility] Start: 09-27-2024 End: 09-27-2024 Magaly DEVINE -[facility] Work Phone: Start: 09-27-2024 End: 09-27-[address] Xiang Rogers DO Work Phone: [facility] Work Phone: Start: 09-21-2024 Dr. Donna Wolff MD -[facility] Work Phone: Start: 09-20-2024 Dr. Seth morales DO -[facility] Work Phone: Start: 09-19-2024 ambulatory Xiang Rogres Facilit y:[facility] Start: 09-19-2024 Dr. Seth morales DO -[facility] Work Phone: Start: 09-18-2024 End: 09-21-2024 ambulatory Clinton Soares Facility:[facility] Start: 09-18-2024 End: 09-21-2024 Evaluation and management of inpatient Dr. Xiang Rogers DO Work Phone: [facility] Work Phone: Start: 09-18-2024 End: 09-21-2024 Dr. Clinton Soares DO -Progressive Care Unit Work Phone: Start: 09-08-2024 End: 09-08-[address] Xiang Rogers DO Work Phone: [facility] Work Phone: Start: 09-08-2024 End: 09-08-2024 Dr. Saúl Flowers MD -[facility] Start: 09-08-2024 End: 09-08-2024 ambulatory Lubna Manley Facility:[facility] Start: 08-02-2024 End: 08-02-2024 Dr. Xiang Will DO -[facility] Work Phone: Start: 08-02-2024 End: 08-02-2024 ambulatory Xiang Rogers Facility:[facility] Start: 07-29-2024 End: 07-29-2024 Dr. Lawson Castellon DO -Emergency Departmen t Work Phone: Start: 07-29-2024 End: 07-29-2024 Emergency department patient visit Lawson Castellon Facility:[facility] Start: 07-14-2024 End: 07-14-2024 Lubna DEVINE -[facility] Work Phone: Start: 07-14-2024 End: 07-14-2024 ambulatory Xiang Rogers Facility:[facility] Start: 07-12-2024 End: 07-12-2024 Ronit Galvez NP-C -[facility] Work Phone: Start: 07-12-2024 End: 07-12-2024 ambulatory Xiang Rogers Facility:[facility] Start: 06-20-2024 ambulatory Calos Quinn Facility:[facility] Start: 06-20-2024 Dr. Seth morales DO -[facility] Work Phone: Start: 06-20-2024 Dr. Calos Quinn MD -[facility] Start: 06-19-2024 Dr. Alexandru Mckeon MD [facility] Start: 06-19-2024 Dr. Donna Wolff MD -[facility] Work Phone: Start: 06-18-2024 ambulatory Alexandru Mckeon Fa cility:[facility] Start: 06-18-2024 Dr. Alexandru Mckeon MD -[facility] Start: 06-18-2024 ambulatory Steve Esteban Facili ty:[facility] Start: 06-18-2024 End: 06-20-2024 Evaluation and management of inpatient Steve Esteban Facility:[facility] Start: 06-18-2024 End: 06-20-2024 Dr. Seth Carrington DO -Progressive Care Unit Work Phone: Start: 06-15-2024 ambulatory Magaly DEVINE Facility:[facility] Start: 06-15-2024 Non-patient / Non-visit Garret Saldana -[facility] Start: 06-15-[address] [facility] Start: 06-13-2024 Non-patient / Non-visit Dr. Saúl talbert MD -[facility] Start: 06-13-2024 End: 06-13-[address] Xiang Rogers DO Work Phone: [facility] Work Phone: Start: 06-13-2024 End: 06-13-2024 Patient encounter procedure Lubna DEVINE -Cardiovascular Services Work Phone: Start: 06-13-2024 End: 06-13-2024 Dr. Saúl Flowers MD -[facility] Start: 06-13-2024 End: 06-13-2024 ambulatory Lubna Manley Facility:[facility] Start: 06-07-2024 ambulatory Kimberli Abby PART TIME FLEXIBLE CLERK Facil ity:[facility] Start: 05-21-2024 End: 05-21-2024 Dr. Saúl Aguilar DO -Emergency Departme nt Work Phone: Start: 05-21-2024 End: 05-21-2024 Emergency department patient visit Dr. Saúl Aguilar DO -Emergency Department Work Phone: Start: 05-17-2024 End: 05-17-2024 Patient encounter procedure Lubna DEVINE -[facility] Work Phone: Start: 05-17-2024 End: 05-17-2024 Lubna DEVINE -[facility] Work Phone: Start: 05-17-2024 End: 05-17-2024 ambulatory Xiang Rogers Facility:[facility] Start: 05-09-2024 ambulatory Calos Quinn Facility:[facility] Start: 05-09-2024 Non-patient / Non-visit Dr. Ren [facility]BROOK -[facility] Start: 05-09-2024 End: 05-09-2024 Patient encounter procedure Magaly DEVINE -[facility] Work Phone: Start: 05-09-2024 End: 05-09-2024 ambulatory Magaly DEVINE Facility:[facility] Start: 05-03-2024 End: 05-03-[address] Xiang Will DO -[facility] Work Phone: Start: 05-03-2024 End: 05-03-2024 ambulatory Xiang Rogers Facility:[facility] Start: 04-20-2024 ambulatory Saúl Flowers Facility:[facility] Start: 04-20-2024 Non-patient / Non-visit Dr. Saúl talbert MD -[facility] Start: 04-20-2024 End: 04-20-2024 Admission to same day surgery center Dr. Saúl Flowers MD -Equity Manager/Special Procedures Work Phone: Start: 04-20-2024 End: 04-20-2024 ambulatory [facility] Facility:[facility] Start: 04-08-2024 End: 04-08-2024 Patient encounter procedure Lubna DEVINE -[facility] Work Phone: Start: 04-08-2024 End: 04-08-2024 ambulatory [facility] Facility:[facility] Start: 04-01-2024 End: 04-01-2024 Patient encounter procedure Magaly DEVINE -[facility] Work Phone: Start: 04-01-2024 End: 04-01-2024 ambulatory Xiang Rogers Facility:[facility] Start: 03-29-2024 End: 03-29-2024 Patient encounter procedure [facility]na DEVINE [facility] Start: 03-29-2024 End: 03-29-2024 ambulatory Lubna Manley Facility:[facility] Start: 03-22-2024 End: 03-22-2024 Patient encounter procedure Lubna DEVINE [facility] Work Phone: Start: 03-22-2024 End: 03-22-2024 ambulatory Xiang Rogers Facility:[facility] Start: 03-09-2024 ambulatory Jose Small Facili ty:[facility] Start: 03-09-2024 Non-patient / Non-visit Dr. Saúl talbert MD -[facility] Start: 03-09-2024 End: 03-09-2024 Patient encounter procedure Jose Small DPM -Cardiovascular Services Work Phone: Start: 03-09-2024 End: 03-09-2024 ambulatory Jose Samll Facility:[facility] Start: 02-24-2024 End: 02-24-[address] Xiang Will DO -[facility] Work Phone: Start: 02-24-2024 End: 02-24-2024 ambulatory Xiang Rogers Facility:[facility] Start: 02-24-2024 End: 02-24-2024 Patient encounter procedure Lubna DEVINE -[facility] Work Phone: Start: 02-24-2024 End: 02-24-2024 ambulatory Xiang Rogers Facility:[facility] Start: 02-23-2024 End: 02-23-2024 ambulatory Ronit Galvez NP Facility:[facility] Start: 01-27-2024 ambulatory Xiang Rogers Facilit y:[facility] Start: 01-07-2024 End: 01-07-2024 ambulatory Xiang Rogers Facility:[facility] Start: 12-31-2023 End: 12-31-2023 Office outpatient visit 25 minutes Gab Culver APRN.CNP Work Phone: [facility] Comment on above: Sinobronchitis (Prim jagjit Dx) Start: 11-13-2023 ambulatory Xiang Rogers Facilit y:[facility] Start: 11-13-2023 End: 11-13-2023 ambulatory Xiang Rogers Facility:[facility] Start: 06-02-2023 End: 06-02-[address] Xiang Rogers Work Phone: [facility] Work Phone: Start: 06-02-2023 End: 06-02-[address] Xiang Rogers Work Phone: [facility] Work Phone: Start: 05-24-2023 End: 05-24-2023 Emergency department patient visit Dr. Xiang Rogers Work Phone: [facility]-Emergency Department Work Phone: Start: 04-25-2023 End: 04-25-2023 Emergency department patient visit Dr. Xiang Rogers Work Phone: [facility]-Emergency Department Work Phone: Start: 04-15-2023 End: 04-15-[address] Xiang Rogers Work Phone: [facility] Work Phone: Start: 04-15-2023 End: 04-15-[address] Xiang Rogers Work Phone: [facility] Work Phone: Start: 01-26-2023 End: 01-26-[address] Xiang Rogers Work Phone: [facility] Work Phone: Start: 01-13-2023 End: 01-13-[address] Xiang Rogers Work Phone: [facility] Work Phone: Start: 06-02-2022 End: 06-02-[address] Xiang Rogers Work Phone: [facility] Work Phone: Start: 06-02-2022 End: 06-02-[address] Xiang Rogers Work Phone: [facility]-Laboratory Start: 05-23-2022 Non-patient / Non-visit Dr. Velazquez Work Phone: [facility] Start: 05-21-2022 End: 05-21-2022 Emergency department patient visit Dr. Xiang Rogers Work Phone: [facility]-Emergency Department Start: 05-19-2022 End: 05-19-[address] Xiang Rogers Work Phone: [facility] Start: 04-24-2022 End: 04-24-[address] Xiang Rogers Work Phone: [facility] Start: 04-21-2022 Non-patient / Non-visit Dr. Velazquez Work Phone: [facility] Start: 04-19-2022 Non-patient / Non-visit Dr. Velazquez Work Phone: [facility] Start: 04-19-2022 Non-patient / Non-visit Dr. Velazquez Work Phone: [facility] Start: 04-18-2022 Non-patient / Non-visit Dr. Velazquez Work Phone: [facility] Start: 04-18-2022 End: 04-19-2022 Evaluation and management of inpatient Dr. Xiang Rogers Work Phone: [facility]-Intensive Care Unit Start: 04-09-2022 End: 04-09-[address] Xiang Rogers Work Phone: [facility] Start: 03-11-2022 End: 03-11-[address] Xiang Rogers Work Phone: [facility] Work Phone: Start: 03-11-2022 End: 03-11-[address] Xiang Rogers Work Phone: [facility] Start: 03-01-2022 End: 03-01-2022 Emergency department patient visit Dr. Xiang Rogers Work Phone: [facility]-Emergency Department Start: 02-04-2022 End: 02-04-2022 ambulatory YAMILKA PAREKH Facility:[facility] Start: 02-04-2022 End: 02-04-2022 Patient encounter procedure Yamilka Parekh MD Work Phone: General Surgery Comment on above: Recurrent left ingui nal hernia (Primary Dx) Start: 01-28-2022 End: 01-28-2022 ambulatory YAMILKA PAREKH Facility:[facility] Start: 01-28-2022 End: 01-28-2022 Patient encounter procedure Yamilka Parekh MD Work Phone: General Surgery Comment on above: Left groin pain (Ruchi frantz Dx) Start: 01-28-2022 End: 01-28-2022 Subsequent hospital visit by physician [facility] W[facility] (I-Stat) Work Phone: Cat Scan Comment on above: Left groin pain [R10 .32] Start: 01-08-2022 Non-patient / Non-visit Dr. Velazquez Work Phone: [facility] Start: 01-06-2022 End: 01-06-2022 ambulatory YAMILKA PAREKH Facility:[facility] Start: 01-06-2022 End: 01-06-2022 Patient encounter procedure Yamilka Parekh MD Work Phone: General Surgery Comment on above: Left groin pain (Ruchi frantz Dx) Start: 01-01-2022 End: 01-01-[address] Xiang Rogers Work Phone: [facility] Work Phone: Start: 01-01-2022 End: 01-01-[address] Xiang Rogers Work Phone: [facility] Start: 12-08-2021 End: 12-09-2021 Emergency department patient visit Dr. Xiang Rogers Work Phone: [facility]Emergency Department Start: 09-18-2021 End: 09-18-[address] Xiang Rogers Work Phone: [facility] Start: 07-18-2021 End: 07-19-2021 Emergency department patient visit Dr. Xiang Rogers Work Phone: [facility] Start: 07-18-2021 End: 07-18-2021 ambulatory YAMILKA PAREKH Facility:[facility] Start: 07-18-2021 End: 07-18-2021 Patient encounter procedure Gab Culver APRN.CNP Work Phone: [facility] Comment on above: URI with cough and c ongestion (Primary Dx) Start: 06-13-2021 End: 06-13-[address] Xinag Rogers Work Phone: [facility]atory, [facility] Start: 04-01-2021 End: 04-01-2021 ambulatory YAMILKAColton PAREKH [facility] Procedures Date Procedure Procedure Detail Performing Clinician Start: 10-27-2024 Urine microscopy: re d cells Dr. Xiang Rogers DO Work Phone: Start: 10-27-2024 Urnls dip stick/tabl et reagent auto microscopy Dr. Xiang Rogers DO Work Phone: Start: 10-27-2024 Venous oxygen satura tion measurement Dr. Xiang Rogers DO Work Phone: Start: 10-27-2024 End: 10-27-2024 Blood count smear mcrscp w/mnl difrntl wbc count Dr. Xiang Rogers DO Work Phone: Start: 10-27-2024 Mean corpuscular hemoglobin concentration determination Dr. Xiang Rogers DO Work Phone: Start: 10-27-2024 Nucleated red blood cell count procedure Dr. Xiang Rogers DO Work Phone: Start: 10-27-2024 Platelet mean volume determination Dr. Xiang Rogers DO Work Phone: Start: 10-27-[address] Xiang Rogers DO Work Phone: Start: 10-27-2024 Tri[address]ol lipa se measurement Dr. Xiang Rogers DO Work Phone: Start: 10-26-2024 X-ray of chest, PA a nd lateral views Dr. Xiang Rogers DO Work Phone: Start: 10-23-2024 Blood count smear mc rscp w/mnl difrntl [...] Adult depression scr eening assessment Gab Culver HOT DIPPER.UTILIZATION SPECIALIST Work Phone: Start: 04-06-2006 History of coronary [...] [facility] Start: 10-27-2024 [facility] Start: 10-23-2024 [facility] Start: 10-21-2024 [facility] Start: 10-19-2024 [facility] Start: 09-21-2024 Patient discharge [facility] Start: 09-20-2024 [facility] Start: 09-19-2024 [facility] Start: 09-18-2024 Following clinical pathway protocol [facility] Start: 09-18-2024 Ambulation without limitation [facility] Start: 09-18-2024 Assessment of risk o f venous thromboembolism [facility] Start: 09-18-2024 Care regimes management [facility] Start: 09-18-2024 Insertion of cathete r into peripheral vein [facility] Start: 09-18-2024 Measuring intake and output [facility] Start: 09-18-2024 Notification of physician [facility] Start: 09-18-2024 Oxygen therapy [facility] Start: 09-18-2024 Providing care accor ding to standard [facility] Start: 09-18-2024 Referral to service [facility] Start: 09-18-2024 End: 09-18-2024 [facility] Start: 09-18-2024 Hospital admission, emergency, from emergency room, medical nature [facility] Start: 09-18-2024 Verification routine [facility] Start: 09-18-2024 Admission procedure [facility] Start: 09-18-2024 [facility] Start: 09-18-2024 Inhalation therapy procedure [facility] Start: 07-29-2024 [facility] Start: 07-29-2024 End: 07-29-2024 [facility] Start: 06-20-2024 Patient discharge [facility] Start: 06-19-2024 [facility] Start: 06-19-2024 [facility] Start: 06-18-2024 Assessment of risk o f venous thromboembolism [facility] Start: 06-18-2024 Care regimes management [facility] Start: 06-18-2024 Catheterization of vein [facility] Start: 06-18-2024 Continuous pulse oximetry [facility] Start: 06-18-2024 Elevation of head of bed [facility] Start: 06-18-2024 Insertion of cathete r into peripheral vein [facility] Start: 06-18-2024 Measuring intake and output [facility] Start: 06-18-2024 Notification of physician [facility] Start: 06-18-2024 Oxygen therapy [facility] Start: 06-18-2024 Providing care accor ding to standard [facility] Start: 06-18-2024 Referral to product controller [facility] Start: 06-18-2024 Referral to service [facility] Start: 06-18-2024 Tobacco use cessatio n education [facility] Start: 06-18-2024 Vital signs measurements [facility] Start: 06-18-2024 End: 06-18-2024 [facility] Start: 06-18-2024 Following clinical pathway protocol [facility] Start: 06-18-2024 End: 06-18-2024 Admission procedure [facility] Start: 06-18-2024 Dual pressure sponta neous ventilation support [facility] Start: 06-18-2024 Consultation [facility] Start: 06-18-2024 Inhalation therapy procedure [facility] Start: 06-17-2024 End: 06-18-2024 [facility] Start: 06-11-2024 Urine microalbumin profile DTaP,Tdap,Td Vaccine (2 - Td or Tdap) [facility] Start: 05-21-2024 [facility] Start: 05-21-2024 Airborne precautions [facility] Start: 05-09-2024 Echo tthrc r-t 2d w/wom-mode compl spec&colr d TTE W/DOPPLER COMPLETE [facility] Start: 04-20-2024 Patient discharge [facility] Start: 12-06-2023 Covid-19 Vaccine ( season) Covid-19 Vaccine ( season) [facility] Start: 12-06-2023 Influenza vaccination Influenza Vacc ine (#1) [facility] Start: 05-24-2023 Incision & drainage abscess simple/single I&D ABSCESS SIMPLE/SINGLE [facility] Start: 05-24-2023 [facility] Start: 04-25-2023 [facility] Start: 12-05-2022 Influenza vaccination Influenza Vacc ine (#1) [facility] Start: 05-23-2022 Patient referral [facility] Work Phone: Start: 04-21-2022 Patient referral [facility] Work Phone: Start: 04-19-2022 Patient discharge [facility] Start: 04-18-2022 Patient discharge [facility] Start: 04-18-2022 End: 04-18-2022 Provision of activity privileges [facility] Start: 04-18-2022 Scheduling [facility] Start: 04-18-2022 Vascular disease ris k assessment [facility] Start: 04-18-2022 End: 04-18-2022 Notification of physician [facility] Start: 04-18-2022 Patient education [facility] Start: 04-18-2022 Pulse taking [facility] Start: 04-18-2022 End: 04-18-2022 Taking patient vital signs [facility] Start: 04-18-2022 Wound care [facility] Start: 04-18-2022 End: 04-18-2022 [facility] Start: 04-18-2022 Catheterization of vein [facility] Start: 04-18-2022 Medication not administered [facility] Start: 04-18-2022 Notification of physician [facility] Start: 04-18-2022 [facility] Start: 04-18-2022 Following clinical pathway protocol [facility] Start: 04-18-2022 Assessment of risk o f venous thromboembolism [facility] Start: 04-18-2022 Care regimes management [facility] Start: 04-18-2022 Inhalation therapy procedure [facility] Start: 04-18-2022 Insertion of cathete r into peripheral vein [facility] Start: 04-18-2022 Measuring intake and output [facility] Start: 04-18-2022 Oxygen therapy [facility] Start: 04-18-2022 Providing care accor ding to standard [facility] Start: 04-18-2022 Provision of activit y privileges [facility] Start: 04-18-2022 Referral to product controller [facility] Start: 04-18-2022 Referral to occupati onal therapist [facility] Start: 04-18-2022 Referral to service [facility] Start: 04-18-2022 Tobacco use cessatio n education [facility] Start: 04-18-2022 [facility] Start: 04-18-2022 Verification routine [facility] Work Phone: Start: 04-18-2022 Admission procedure [facility] Start: 04-18-2022 [facility] Work Phone: Start: 04-06-2022 Depression Assessment Depression Ass essment [facility] Start: 12-05-2021 Influenza vaccination [facility] Start: 04-06-2021 DEPRESSION ASSESSMENT DEPRESSION ASS [...] [place] Start: 06-18-2019 ANNUAL PCP TEAM EXTRACTOR MACHINE OPERATOR MIAN DISEASE VISIT ANNUAL PCP TEAM [...] [place] Start: 01-22-2015 Influenza vaccination LUNG CANCER [facility] Start: 01-22-2010 Influenza vaccination LUNG CANCER [facility] Start: 01-22-2010 Screening for malign [...] [place] Start: 01-22-[address] COLONOGRAPHY [facility] Start: 01-22-2005 FECAL OCCULT BLOOD FECAL OCCULT BLOO D [facility] Start: 01-22-2005 Screening for malign ant neoplasm of colon [facility] Start: 01-22-[address] [facility] Start: 01-22-1979 Urine microalbumin profile DTAP,TDAP,TD (1 - Tdap) [facility] Start: 01-22-1978 ANNUAL PCP TEAM EXTRACTOR MACHINE OPERATOR MIAN DISEASE VISIT ANNUAL PCP TEAM CHRONIC DISEASE VISIT [facility] Start: 01-22-1978 Anxiety Screening Anxiety Screening [facility] Start: 01-22-1978 Depression Screening Depression Scre ening [facility] Start: 01-22-1978 HIV SCREEN[address] HIV SCREEN[address] [facility] Start: 01-22-1978 HIV screening HIV Screening [facility] Start: 01-22-1970 Glaucoma screening Dilated Retinal E [...] Occurrences starting 01/06/2022 until 02/05/2023 [facility] Work Phone: Comment on above: 1 Occurrences starti ng 01/06/2022 until 02/05/2023 Hemoglobin A1c/Hemoglobin.total in Blood [facility] Work Phone: Hemoglobin A1c/Hemoglobin.total in Blood [facility] Lipid 1996 panel - S belinda or Plasma [facility] Patient Education [facility] Work Phone: Patient referral [facility] Work Phone: Troponin T.cardiac [Mass/volume] in Serum or Plasma by High sensitivity method [facility] US Carotid arteries [facility] US Heart [facility] Immunization Date Immunization Notes Care Provider Karla garcia 04-25-2023 tetanus toxoid, redu jesse diphtheria toxoid, and acellular pertussis vaccine, adsorbed Dr. Xiang Rogers Work Phone: [facility] 12-23-2016 influenza, injectabl e, quadrivalent, contains preservative Gab Culver HOT DIPPER.UTILIZATION SPECIALIST Work Phone: [facility] 12-23-2016 influenza virus vacc ine, unspecified formulation Ct (I-[facility]) Work Phone: [facility] 10-09-2015 pneumococcal polysaccharide vaccine, 23 valent Gab Culver HOT DIPPER.[facility] Work Phone: [facility] Work Phone: 06-11-2014 tetanus toxoid, redu jesse diphtheria toxoid, and acellular pertussis vaccine, adsorbed Dr. Xiang Rogers Work Phone: [facility] Payers Date Payer Category Payer Self-pay [id number] 2023 Unknown [id number] 2023 Unknown NEVILLE LOZADA HI X [id number] 2023-Present [phone] [address] [address] [place] [address] HMO [id number] 2023 Unknown [id number] 2020 Medicaid [employer] [id number] 2020-Present [phone] [address] [place] [address] Medicaid [id number]. [id number] 2020 Medicaid [id number]. [id number]. [id number] 2020 Unknown [id number] 2014 Unknown [facility] [id number] Unknown 0 [id number] Unknown [id number] 2.16.840.1.283696.3.579.2.462 Unknown [id number] 2.16.840.1.903216.3.579.2.462 Unknown [id number] 2.16840.1.815135.3.579.2.462 Unknown [id number] 2.16840.1.433986.3.579.2.462 Unknown [id number] 2.16840.1.832562.3.579.2.462 Unknown [id number] 2.16840.1.650158.3.579.2.462 Unknown [id number] 2.16840.1.649894.3.579.2.462 Unknown [id number] 2.840.1.510689.3.579.2.462 Unknown [id number] 2.840.1.567104.3.579.2.462 Unknown [id number] 2.840.1.084750.3.579.2.462 Unknown [id number] 2.840.1.436053.3.579.2.462 Unknown [id number] 2.840.1.024074.3.579.2.462 Unknown [id number] 2.840.1.118288.3.579.2.462 Unknown [id number] 2.840.1.673267.3.579.2.462 Unknown [id number] 2.840.1.171649.3.579.2.462 Unknown [id number] 2.16840.1.272426.3.579.2.462 Unknown [id number] 2.16840.1.813147.3.579.2.462 Unknown [id number] 2.16840.1.889917.3.579.2.462 Unknown [id number] 2.16840.1.363989.3.579.2.462 Unknown [id number] 2.16.840.1.114969.3.579.2.462 Unknown [id number] 2.16.840.1.801000.3.579.2.462 Unknown [id number] 2.16.840.1.880734.3.579.2.462 Unknown [id number] 2.16.840.1.869209.3.579.2.462 Unknown [id number] 2.16.840.1.484860.3.579.2.462 Unknown [id number] 2.16.840.1.107369.3.579.2.462 Unknown [id number] 2.16.840.1.053177.3.579.2.462 Unknown [id number] 2.16.840.1.455223.3.579.2.462 Unknown [id number] 2.16.840.1.958341.3.579.2.462 Unknown [id number] 2.16.840.1.918797.3.579.2.462 Unknown [id number] 2.16.840.1.560175.3.579.2.462 Unknown [id number] 2.16.840.1.029436.3.579.2.462 Unknown [id number] 2.16.840.1.921844.3.579.2.462 Unknown [id number] 2.16.840.1.184499.3.579.2.462 Unknown [id number] 2.16.840.1.852717.3.579.2.462 Unknown [id number] 2.16.840.1.342615.3.579.2.462 Unknown [id number] 2.16.840.1.108116.3.579.2.462 Unknown [id number] 2.16.840.1.843596.3.579.2.462 Unknown [id number] 2.16.840.1.377091.3.579.2.462 Unknown [id number] 2.16.840.1.312176.3.579.2.462 Unknown [id number] 2.16.840.1.876094.3.579.2.462 Unknown [id number] 2.16.840.1.338468.3.579.2.462 Unknown [id number] 2.16.840.1.230467.3.579.2.462 Unknown [id number] 2.16.840.1.746694.3.579.2.462 Unknown [id number] 2.16.840.1.301043.3.579.2.462 Unknown [id number] 2.16.840.1.853677.3.579.2.462 Unknown [id number] 2.16.840.1.242224.3.579.2.462 Unknown [id number] 2.16.840.1.302184.3.579.2.462 Unknown [id number] 2.16.840.1.622965.3.579.2.462 Unknown [id number] 2.16.840.1.317446.3.579.2.462 Unknown [id number] 2.16.840.1.310073.3.579.2.462 Unknown [id number] 2.16.840.1.624632.3.579.2.462 Unknown [id number] 2.16.840.1.759117.3.579.2.462 Unknown [id number] 2.16.840.1.499235.3.579.2.462 Social History Date Type Detail Facility Start: 01-06-2022 End: 12-31-2023 Tobacco smoking status NHIS Smokes tobacco daily [facility] Work Phone: History of tobacco use Cigarette Smoker [facility] Start: 07-18-2021 End: 12-31-2023 Alcohol intake Current non-drinker of alcohol (finding) [facility] Start: 1960 Sex Assigned At Not on file [facility] Start: 07-08-2021 End: 02-04-2022 Exposure to SARS-CoV-2 (event) Not sure [facility] Start: 07-18-2021 End: 06-02-2023 Tobacco smoking status NHIS Unknown if ever smoked [facility] Start: 04-12-2019 None [facility] Start: 04-12-2019 Spouse/ Signif icant Other [facility] Start: 08-11-2020 Cigarettes [facility] Start: 1960 Sex Assigned At Male [facility] Start: 01-06-2022 End: 05-02-2022 Cigarettes smoked current (pack per day) - Reported 2 [facility] Start: 01-06-2022 End: 12-31-2023 Tobacco use and exposure Smokeless tobacco non-user [facility] Start: 01-06-2022 Tobacco Comment started at age 14 [facility] Start: 01-28-2022 End: 05-02-2022 Tobacco use panel [facility] National Score (1-10 0), lower number is lower risk Not on file [facility] Start: 06-17-2024 End: 10-21-2024 Tobacco smoking status NHIS Current Heavy tobacco smoker [facility] Start: 06-23-2024 Sex Male (finding) [facility] Start: 10-23-2024 End: 10-26-2024 Tobacco smoking status DEIS Current Light tobacco smoker [facility] Medical Equipment Procedure Code Equipment Code Equipment Origin al Text Equipment Identifier Dates [id number], [id number], [id number] Start: 01-21-2016 Comment on above: Test blood sugar(s) 2 daily. Dx: E11.65. Insulin: Yes Use one needle per d ose. 1 per day. Test blood sugar(s) 2 daily. Dx: E11.65 Insulin: Yes Blood Sugar Diagnostic (Freestyle Test) strip Start: 04-02-2021 Lancets (Freesty le Lancets) [facility] Start: 04-02-2021 Pen Needle, Diabetic (1st Tier [...] 04-02-2021 Pen Needle, Diabetic (Comfort Ez Pen Warren) 31 gauge x 5/16 needle Start: 10-28-2023 [...] Functional status Ambulates;Up a d andree;Bathroom Privilege [facility] Work Phone: 09-19-2024 Functional status None [facility] Work Phone: 06-20-2024 Functional status Chair [facility] Work Phone: 04-19-2022 Functional status Ambulates;Up ad andree [facility] Work Phone: Mental Status Date Assessment Result Facility 10-26-2024 Cognitive function Awake;Alert;A ppropriate;Follow s Commands [facility] Work Phone: 10-19-2024 Cognitive function Voice/Name [facility] Work Phone: 09-21-2024 Cognitive function Voice/Name [facility] Work Phone: 09-18-2024 Cognitive function Voice/Name [facility] Work Phone: 07-29-2024 Cognitive function Voice/Name [facility] Work Phone: 06-20-2024 Cognitive function Voice/Name [facility] Work Phone: 04-19-2022 Cognitive function Voice/Name [facility] Work Phone: 04-18-2022 Cognitive function Voice/Name [facility] Work Phone: 07-18-2021 Cognitive function Level Of Cons ciousness Awake;Alert;Appropriate [facility] Work Phone: Clinical Notes 06-11-2018 to 10-27-2024 Note Date & Type Note Facility 10-27-2024 Radiology Diagnostic study note [facility] 10-23-2024 Discharge summary Note Date/Time October 23, 2024 8:44pm [facility] Medical Records Department [address] [place] [address] Emergency Department Summary 10/23/24 MR#: [id number] Acct: [id number] Name: JAYLEN MEJIA Sr. Rep #:[id number] : 1960 64 From: Devin Curry MD PCP: Dr. Xiang Rogers, DO Status:RE G ER Location: ED HPI History of Present Illness Chief Complaint: Cellulitis Informant: patient Onset/Context/Timing Onset: Days Context: Gradual Onset Timing: Continuous Current Severity: Mild Maximum Severity: Mild Narrative Narrative: 64-year-old male history of insulin-dependent diabetes, hypertension, [place], COPD, CHF. Recent admission last several weeks for CHF. States has had swelling in his lower extremities but now the red, warm and painful. He said he had breaking of pustules and pus on his legs. He denies any fever or chills. Denies any chest pain or shortness of breath. Prior similar symptoms: No Recent Illness/Hospitalization: Yes [facility] Medical History GERD (gastroesophageal reflux disease) [...] Nicotine dependence Atherosclerosis of coronary artery of [place] heart without angina pectoris Hyperlipidemia Essential (primary) hypertension Home Medications ?Medication ?Instructions ?Recorded ?Last Taken ?Type blood sugar diagnostic (FreeStyle #50 ea 04/02/21 Unkn own Rx Test strips) blood-glucose meter (FreeStyle #1 ea 04/02/21 Unknown Rx System Kit) lancets 28 gauge (FreeStyle #50 ea 04/02/21 Unknown Rx Lancets) pen needle, diabetic 31 gauge x #100 ea 04/02/21 Unkno wn Rx 3/ (1st Tier Unifine Pentips Plus) Handicap placard #1 ea 07/22/23 Unknown Rx pen needle, diabetic 31 gauge x #100 ea 10/28/23 Unkno wn Rx /16 (Comfort EZ Pen Warren) evolocumab 140 mg/mL subcutaneous 140 mg subcut Q2W ch olesterol #6 mL 05/09/24 09/12/24 Rx pen injector (Wolf Daughertyick) albuterol sulfate 90 mcg/actuation 2 puff inhalation [...] % (Auto) 68.5 Lymph % (Auto) 21.6 [place] % (Auto) 6.1 Eos % (Auto) 3.4 [...] (DME) pen needle, diabetic [Comfort EZ Pen Warren] 31 gauge x 5/16 needle See Rx [...] Xiang Rogers DO [Primary Care Provider] - 3-5 Days [...] week. Return if feeling worse. Print Language: Belgian Disposition Disposition: Home, Self Care What to do if you have Problems For any increased pain, shortness of breath, bleeding, nausea or vomiting, chestpain, or any unexpected problems, contact your Primary Care Provider. Call [facility] ([phone]) or report to the closest Emergency Room. Call 911 if necessary. 10/23/242043 <Electronically signed by Devin Curry MD> Cosigner Signature (if applicable): CC: Dr. Xiang Rogers DO ~ Signed [facility] Work Phone: 1(686) 670-914607-20-2025 Hospital Discharge instructionsAdditional Instructions The antibiotic clindamycin [...] evaluation later this week. Return if feeling worse.[facility] Work Phone: 1(612) 116-935407-16-2025 Radiology Diagnostic study [facility]07-16-2025 Discharge summary Author Valentín Miller [facility] Note Date/Time October 19, 2024 11:2 1pm [facility] System Medical Records Department [address] [place] [address] Emergency Department Summary 10/19/24 MR#: [id number] Acct: [id number] Name: JAYLEN MEJIA Sr. Rep #:[id number] : 1960 64 From: Valentín Saravia PCP: Dr. Xiang R Brown, DO Status:RE G ER Location: ED HPI History of Present Illness Chief Complaint: Chest Pain [facility] Medical History GERD (gastroesophageal reflux disease) [...] Nicotine dependence Atherosclerosis of coronary artery of [place] heart without angina pectoris Hyperlipidemia Essential (primary) [...] Rx 3/16 (1st Tier Unifine Pentips Plus) Handicap placard #1 ea 07/22/23 Unknown Rx pen needle, diabetic 31 gauge x #100 ea 10/28/23 Unkno wn Rx 5/16 (Comfort EZ Pen Warren) evolocumab 140 mg/mL subcutaneous 140 mg subcut [...] Pulse Ox 97 98 Oxygen Delivery Method [facility] Narrative Medical decision making narrative: HISTORY OF [...] History obtained from others: none Consults: none [facility] Narrative: The patient was initially tachycardic with [...] of breath. The patient ruled out by [facility] high-sensitivity troponin protocol for ACS. It is [...] Discharge home This note was generated with [employer] dictation software. It may contain incorrectwords, spelling, [...] % (Auto) 65.7 Lymph % (Auto) 24.7 [place] % (Auto) 6.1 Eos % (Auto) 3.1 [...] evidence of acute cardiopulmonary disease. Reading Location: [id number] Discharge Plan Triage Chief Complaint: Chest Pain [...] (DME) pen needle, diabetic [Comfort EZ Pen Warren] 31 gauge x 5/16 needle See Rx [...] [Primary Care Provider] - Jose Garcia MD [[facility] Staff - Active Staff] - Activity Restrictions/Additional Instructions: Thank you for trusting us with your care today! Please take prescribed Lasix. Please return to the emergency department if your symptoms change or worsen. Specifically develop worsening chest pain, leg swelling or shortness of breath. Please follow with your primary care physician for further outpatient evaluationand management. Print Language: Belgian Disposition Disposition: Home, Self Care What to do if you have Problems For any increased pain, shortness of breath, bleeding, nausea or vomiting, chestpain, or any unexpected problems, contact your Primary Care Provider. Call [facility] ([phone]) or report to the closest Emergency Room. Call 911 if necessary. 10/19/24 2742 <Electronically signed by Valentín Miller DO> Cosigner Signature (if applicable): CC: Dr. Xiang Rogers DO ~ Signed [facility] Work Phone: 1(612) 846-745806-18-2025 Discharge summary Author Donna Wolff [facility] Note Date/Time September 21, 2024 4:22 pm [facility] Medical Records Department [address] [place] [address] Instructions for Home/Discharge Instructions 09/21/24 1537 MR#: [id number] Acct: [id number] Name: JAYLEN MEJIA Sr. Rep #:[id number] : 1960 64 From: Donna Wolff MD PCP: Dr. Xiang Rogers, DO Status:AD M IN Discharge Instructions DC [...] When you eat out, ask that the chef french not add any salt to your dish. Don't eat fried or greasy foods. Be careful of bottled beverages. They can contain a lot of salt -Call 911 right away if you have: -Severe shortness of breath, such that you can't catch your breath even while resting -Severe chest pain that does not resolve with rest or nitroglycerin -Woolsey, foamy mucus with cough and shortness of [...] the same meal each day (DME) Handicap olimpia See Rx Instructions .Route .MEDSUPPLY Qty: 1 0RF Rx Instructions: Due to COPD, unable to walk 50 yards without assistance, duration 5 years. (DME) pen needle, diabetic [Comfort EZ Pen Warren] 31 gauge x 5/16 needle See Rx [...] Care Provider] - Within 1 Week Magaly Abid PA [Med Staff - [facility] Practice Prof] - Within 2 Weeks Disposition Disposition (needs filled in before D/C Order can be placed): Home, Self Care 09/21/24 1622<Electronically signed by Donna Wolff MD>Donna Wolff MD CC: Dr. Clinton Soares, ; Dr. Xiang Rogers DO; Dr. Seth Carrington DO ~ Signed [facility] Work Phone: 1(882) 954-194506-18-2025 [facility]06-17-2025 Progress note Author [facility] Note Date/Time September 20, 2024 7:12 pm [facility] Medical Records Department [address] [place] [address] Progress Note - Hospitalist 09/20/24 1910 MR#: [id number] Acct: [id number] Name: JAYLEN MEJIA Hannah Sr. Rep #:[id number] : 1960 64 From: Seth Carrington DO PCP: Dr. Xiang Rogers DO Status:AD M IN Location: [place] [id number]- Hospitalist Note Additional note: Per my review [...] 20 mg daily, Zetia 10 mg daily, Psagjq50 mg daily. Patient is not taking the following medications: Spironolactone 25 mg daily, Lasix 40 mg twice daily, atorvastatin 80 mg daily, metformin 1000 mg twice daily, Pletal 50 mg daily. 09/20/241911 <Electronically signed by Seth Carrington DO> Cosigner Signature (if applicable): CC: ~ Signed [facility] Work Phone: 1(813) 801-217106-17-2025 Progress note Author [facility] Note Date/Time September 20, 2024 6:38 pm [facility] Medical Records Department [address] [place] [address] Progress Note - Hospitalist 09/19/241899 MR#: [id number] Acct: [id number] Name: JAYLEN MEJIA Sr. Rep #:[id number] : 1960 64 From: Seth Carrington DO PCP: Dr. Xiang Rogers, DO Status:AD M IN Location: [place] [address] Reason for Visit Reason for Visit: Diagnoses [...] fraction is 35 %. Normal LV size. Bagley : Akinetic. Mid-Anterior : Severely Hypokinetic. Compared [...] 50 minutes Charges/Coding Visit Charges Inpatient E&M: 33748 [facility] Hosp 09/20/24 1838 <Electronically signed by Seth Carrington DO> Cosigner Signature (if applicable): CC: ~ Signed [facility] Work Phone: 1(167) 789-115706-16-2025 Discharge summary Author Saúl Aguilar [facility] Note Date/Time September 18, 2024 10:3 5pm [facility] Medical Records Department [address] [place] [address] Emergency Department Summary 09/18/24 MR#: [id number] Acct: [id number] Name: JAYLEN MEJIA Hannah Schmitt. Rep #:[id number] : 1960 64 From: Saúl Saravia PCP: Dr. Xiang Rogers, DO Status:AD M IN Location: [address] History of Present Illness Chief Complaint: [...] Nicotine dependence Atherosclerosis of coronary artery of [place] heart without angina pectoris Hyperlipidemia Essential (primary) [...] Unkno wn Rx 08/19 (Comfort EZ Pen Warren) evolocumab 140 mg/mL subcutaneous 140 mg subcut [...] % (Auto) 61.9 Lymph % (Auto) 27.0 [place] % (Auto) 6.7 Eos % (Auto) 3.7 [...] 10:26 IMPRESSION: No Acute Findings. Reading Location: [id number] Portable 1 view chest x-ray was obtained. [...] interval, and QTc intervals were all normal. Polson was normal. There are nonspecific ST-T wave [...] (DME) pen needle, diabetic [Comfort EZ Pen Warren] 31 gauge x 5/16 needle See Rx [...] Care Provider: Xiang Rogers Referrals: Xiang Rogers, [Primary Care Provider] - Print Language: Belgian Disposition Disposition: Acute Care Hospital [facility] What to do if you have Problems For any increased pain, shortness of breath, bleeding, nausea or vomiting, chestpain, or any unexpected problems, contact your Primary Care Provider. Call [facility] ([phone]) or report to the closest Emergency Room. Call 911 if necessary. 09/18/242234 <Electronically signed by Saúl Aguilar DO> Cosigner Signature (if applicable): CC: Dr. Xiang Rogers DO ~ Signed [facility] Work Phone: 1(696) 915-833406-15-2025 History and physical note Author Clinton Soares [facility] Note Date/Time September 18, 2024 2:16 pm [facility] System Medical Records Department [address] [place] [address] H&P Exam - Hospitalist 09/18/24 1339 MR#: [id number] Acct: [id number] Name: ROBERTOJAYLEN L Sr. Rep #:[id number] : 1960 64 From: Clinton khan DO PCP: Dr. Xiang Rogers DO Status:AD M IN Location: [facility] [id number]- [id number] HPI - General General Date of Admission: 09/18/24 Date of Service: 09/18/24 Chief Complaint: Shortness of breath and chest discomfort HPI Narrative JAYLEN MEJIA, is a 64 M who presented to [facility] ED on 09/18/2024 with chest pain and volume overload. Patient was hospitalized here inMarch for similar presentation. Has history of CABG [...] time. Will be admitted for further management. [facility] Medical History GERD (gastroesophageal reflux disease) [...] Nicotine dependence Atherosclerosis of coronary artery of [place] heart without angina pectoris Hyperlipidemia Essential (primary) hypertension Home Medications ?Medication ?Instructions ?Recorded ?Last Taken ?Type blood sugar diagnostic (FreeStyle #50 ea 04/02/21 Unkn own Rx Test strips) blood-glucose meter (FreeStyle #1 ea 04/02/21 Unknown Rx System Kit) lancets 28 gauge (FreeStyle #50 ea 04/02/21 Unknown Rx Lancets) pen needle, diabetic 31 gauge x #100 ea 04/02/21 Unkno wn Rx 3 (1st Tier Unifine Pentips Plus) nitroglycerin 0.4 [...] Unkno wn Rx 08/19 (Comfort EZ Pen Warren) evolocumab 140 mg/mL subcutaneous 140 mg subcut Q2W #6 mL 05/09/24 09/12/24 Rx pen injector (Repyohannes Daughertyick) albuterol sulfate 90 mcg/actuation 2 puff inhalation [...] % (Auto) 61.9, Lymph % (Auto) 27.0, [place]% (Auto) 6.7, Eos % (Auto) 3.7, Baso [...] 10:26 IMPRESSION: No Acute Findings. Reading Location: [id number] Assessment & Plan Assessment/Plan (1) Acute on chronic HFrEF (heart failure with reduced ejection fraction): PLAN: Plan Patient is a 64-year-old male who presented to [facility] ED on 09/18/2024 with shortness of breath, [...] with A1c values consistently above 10% since [id number]. Repeat A1c ordered. Glucose 184 on admit. [...] 75 minutes. Charges/Coding Visit Charges Inpatient E&M: 73032 Init Hosp L3 09/18/24 1416 <Electronically signed by Clinton Soares DO> Cosigner Signature (if applicable): CC: Dr. Clinton Soares, DO; Dr. Xiang Rogers, DO~ Signed [facility] Work Phone: 1(173) 984-767606-15-2025 Radiology Diagnostic study [facility]04-10-2025 Evaluation note* Diagnosis Onset Date Resolution Status [...] surgery 2007 resolved September 27, 2024 9:55am Aortic valve stenosis acute Oct 10:15am LV dysfunction acute November 03, 2024 10:15am Essential (primary) hypertension chr onic November 03, 2024 10:15am Hyperlipidemia chronic November 03, 2024 10:15am Nicotine dependence chronic November 03, 2024 10:15am Stenosis of right carotid artery chr onic November 03, 2024 10:15am H/O coronary artery bypass surgery 2007 resolved November 03, 2024 10:15am Type 2 diabetes mellitus rody ated with insulin acute November 04, 2024 1:36pm Acute on chronic HFrEF (hear t failure with reduced ejection fraction) chronic November 04, 2024 1:36pm 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 November 04, 2024 1:36pm Essential (primary) hypertension chr onic November 04, 2024 1:36pm Hyperlipidemia chronic November 1:36pm Lymphorrhea acute November 10, 2 025 10:05am Acute on chronic HFrEF (hear t failure with reduced ejection fraction) chronic November 10, 2024 10:05am [facility] Work Phone: 1(188) 873-736004-08-2025 Evaluation note* Diagnosis Onset Date Resolution Status Admit Date Aortic valve stenosis acute Jul 9:51am LV [...] surgery 2007 resolved September 27, 2024 9:55am [facility] Work Phone: 1(162) 549-480304-08-2025 Evaluation note* Diagnosis Onset Date Resolution Status [...] surgery 2007 resolved September 27, 2024 9:55am Aortic valve stenosis acute Oct 10:15am LV dysfunction acute November 03, 2024 10:15am Essential (primary) hypertension chr onic November 03, 2024 10:15am Hyperlipidemia chronic November 03, 2024 10:15am Nicotine dependence chronic November 03, 2024 10:15am Stenosis of right carotid artery chr onic November 03, 2024 10:15am H/O coronary artery bypass surgery 2007 resolved November 03, 2024 10:15am [facility] Work Phone: [phone]) 953-770103-17-2025 [facility]03-15-2025 Evaluation note* Diagnosis Onset Date Resolution Status [...] ejection fraction) chronic September 18, 2024 1:39pm [facility] Work Phone: 1(757) 221-488603-15-2025 Evaluation note* Diagnosis Onset Date Resolution Status [...] surgery 2007 resolved September 27, 2024 9:[address] 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 Herrera Espinosa Hypertension Other emphysema (HCC) [...] of care. This note was generated using [employer] software. It may contain errors in wording, punctuation, or spelling. Gab Culver APRN.UTILIZATION SPECIALIST documented in this encounterSelect [facility] [...] please return to the ER for repeat [facility] Work Phone: 1([phone]) 791-966011-01-2022 NoteHNO ID: [id number] Author: Yamilka Parekh MD Service: ? Author [...] non-ST elevation myocardial infarction (NSTEMI) 06/11/2018 Hyperlipidemia Functional Support Analyst Dr. Herrera Espinosa Hypertension Other emphysema (HCC) [...] any blood vessels/nerv (more content not included)... [facility]11-01-2022 History of Present illness Narrative* Yamilka [...] non-ST elevation myocardial infarction (NSTEMI) 06/11/2018 Hyperlipidemia Functional Support Analyst Dr. Herrera Espinosa Hypertension Other emphysema (HCC) [...] [facility]10-25-2022 NoteHNO ID: [id number] Author: Yamilka Parekh MD Service: ? Author [...] non-ST elevation myocardial infarction (NSTEMI) 06/11/2018 Hyperlipidemia Functional Support Analyst Dr. Herrera Espinosa Hypertension Other emphysema (HCC) [...] and completing appropriate m (more content not included)...[facility]10-25-2022 History of Present illness Narrative* Yamilka [...] non-ST elevation myocardial infarction (NSTEMI) 06/11/2018 Hyperlipidemia Functional Support Analyst Dr. Herrera Espinosa Hypertension Other emphysema (HCC) [...] [facility]10-25-2022 NoteHNO ID: [id number] Author: ROBLES Leblanc) Service: ? Author Type: Coordinate Measuring Machine Programmer Type: Progress Notes Filed: 01/28/2022 3:01 PM [...] PERIPHERAL IV DATA: Not applicable SIGNED BY: ROBLES Meyer) January 28, 2022 3:01 [facility]10-25-2022 History of Present illness Narrative* Hazel [...] [facility]-03-2022 NoteHNO ID: [id number] Author: Yamilka Parekh MD Service: ? Author [...] non-ST elevation myocardial infarction (NSTEMI) 06/11/2018 Hyperlipidemia Functional Support Analyst Dr. Herrera Espinosa Hypertension Other emphysema (HCC) [...] REVIEW OF SYSTEMS: General: (more content not included)...[facility]10-03-2022 History of Present illness Narrative* Yamilka [...] non-ST elevation myocardial infarction (NSTEMI) 06/11/2018 Hyperlipidemia Functional Support Analyst Dr. Herrera Espinosa Hypertension Other emphysema (HCC) [...] entered by the nurse and reviewed by nh Nursing Notes: Allison Haines RN 01/06/2022 9:32 [...] of any pertinent laboratory studies/radiological imaging/medical records, nbim-[id number] care, obtaining oral medical history from the [...] [facility]04-14-2022 NoteHNO ID: [id number] Author: Gab Culver APRN.UTILIZATION SPECIALIST Service: ? Author Type: Nurse Practitioner Type: [...] type 2 in obese (HCC) - Hyperlipidemia Functional Support Analyst Dr. Herrera Espinosa - Hypertension - Pancreatitis [...] He is not diaphoretic (more content not included)...[facility]04-14-2022 Instructions* Patient Instructions* Gab Culver APRN.UTILIZATION SPECIALIST - 07/18/2021 1:15 PM EDT RESPIRATORY INFECTION [...] spread by coughs, sneezes, anddirect contact, especially [id number]. A respiratory tract infection usually clears up [...] mellitus type 2 in obese (HCC) Hyperlipidemia Functional Support Analyst Dr. Herrera Espinosa Hypertension Pancreatitis Tobacco use [...] of care. This note was generated using [employer] software. It may contain errors in wording,punctuation, or spelling. Gab Culver APRN.TURNER documented in this encounterSelect Medical [facility]-2021 NoteHNO ID: [id number] Author: Maxx Owen APRN.TURNER Service: ? Author [...] type 2 in obese (HCC) - Hyperlipidemia Functional Support Analyst Dr. Herrera Espinosa - Hypertension - Pancreatitis [...] see if it reli (more content not included)...[facility]03-08-2019 Evaluation note* Diagnosis Onset Date Resolution [...] Insulin dependent diabetes mellitus chronic Nicotine dependence [facility] Work Phone: Evaluation note* Diagnosis URI with cough and congestion- Primary [facility] Diagnosis Onset Date Resolution Status 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 Hyperlipidemia chronic Insulin dependent diabetes mellitus chronic H/O coronary artery bypass surgery 2007 resolved [facility] Work Phone: Evaluation note* Diagnosis Onset Date Resolution Status Essential (primary) hypertension chronic Insulin dependent diabetes mellitus chronic Stenosis of right carotid artery chronic H/O coronary artery bypass surgery 2007 resolved [facility] Work Phone: Evaluation note* Diagnosis Onset Date Resolution Status Essential (primary) hypertension chronic Insulin dependent diabetes mellitus chronic Stenosis of right carotid artery chronic H/O coronary artery bypass surgery 2006 resolved Essential (primary) hypertension chronic Insulin dependent diabetes mellitus chronic Stenosis of right carotid artery chronic [facility] Work Phone: Evaluation note* Diagnosis Left groin pain- Primary Abdominal pain, left lower quadrant documented in this encounter [facility]* Diagnosis Left groin pain- Primary Abdominal pain, left lower quadrant documented in this encounter [facility]* Diagnosis Recurrent left inguinal hernia- Primary Inguinal hernia without mention of obstruction or gangrene, recurrent unilateral or unspecified documented in this encounter [facility]* Diagnosis Onset Date Resolution Status Essential (primary) hypertension chronic Insulin dependent diabetes mellitus chronic Stenosis of right carotid artery chronic [facility] Work Phone: Evaluation note* Diagnosis Onset Date Resolution Status Essential (primary) hypertension chronic Insulin dependent diabetes mellitus chronic Stenosis of right carotid artery chronic [id number] acute Nicotine dependence [facility] Work Phone: Evaluation note* Diagnosis Onset Date Resolution Status Essential (primary) hypertension chronic Insulin dependent diabetes mellitus chronic Stenosis of right carotid artery chronic [id number] acute Nicotine dependence chronic Essential (primary) hypertension chronic Hyperlipidemia chronic Insulin dependent diabetes mellitus chronic H/O coronary artery bypass surgery 2007 resolved NSTEMI, initial episode of care acute Insulin dependent diabetes mellitus chronic Nicotine dependence chronic [facility] Work Phone: Evaluation note* Diagnosis Onset Date Resolution Status [id number] acute Nicotine dependence chronic Essential (primary) hypertension [...] dependence chronic H/O coronary artery bypass surgery 2006 resolved NSTEMI, initial episode of care resolved Essential (primary) hypertension chronic Hyperlipidemia chronic Nicotine dependence chronic Stenosis of right carotid artery chronic H/O coronary artery bypass surgery 2007 resolved [facility] Work Phone: Evaluation note* Diagnosis Left groin [...] dependent diabetes mellitus chronic Nicotine dependence chronic [facility] Work Phone: Evaluation note* Diagnosis Onset Date Resolution Status Non-STEMI (non-ST elevated myocardial infarction) acute 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 Essential (primary) hypertension chronic Insulin dependent diabetes mellitus chronic Nicotine dependence chronic [id number] acute Nicotine dependence chronic [facility] Work Phone: Evaluation note* Diagnosis Sinobronchitis- Primary Unspecified sinusitis (chronic) [facility] Note Date/Time September 18, 2024 2:16 pm [facility] Medical Records Department [address] [place] [address] H&P Exam - Hospitalist 09/18/24 1339 MR#: [id number] Acct: [id number] Name: JAYLEN MEJIA Sr. Rep #:[id number] : 1960 64 From: Clinton khan DO PCP: Dr. Xiang Rogers, DO Status:AD M IN Location: [facility] [id number]- [id number] HPI - General General Date of Admission: 09/18/24 Date of Service: 09/18/24 Chief Complaint: Shortness of breath and chest discomfort HPI Narrative JAYLEN MEJIA, is a 64 M who presented to [facility] ED on 09/18/2024 with chest pain and volume overload. [facility]. [facility] [...] time. Will be admitted for further management. [facility] Medical History GERD (gastroesophageal reflux disease) [...] Nicotine dependence Atherosclerosis of coronary artery of [place] heart without angina pectoris Hyperlipidemia Essential (primary) [...] Unkno wn Rx 08/19 (Comfort EZ Pen Warren) evolocumab 140 mg/mL subcutaneous 140 mg subcut [...] % (Auto) 61.9, Lymph % (Auto) 27.0, [place]% (Auto) 6.7, Eos % (Auto) 3.7, Baso [...] 10:26 IMPRESSION: No Acute Findings. Reading Location: [id number] Assessment & Plan Assessment/Plan (1) Acute on chronic HFrEF (heart failure with reduced ejection fraction): PLAN: Plan Patient is a 64-year-old male who presented to [facility] ED on 09/18/2024 with shortness of breath, [...] with A1c values consistently above 10% since [id number]. Repeat A1c ordered. Glucose 184 on admit. [...] 75 minutes. Charges/Coding Visit Charges Inpatient E&M: 66248 Init Hosp L3 09/18/24 1411 <Electronically signed by Clinton Soares DO> Cosigner Signature (if applicable): CC: Dr. Clinton Soares, DO; Dr. Xiang Rogers, DO~ Signed [facility] Work Phone: Hospital Discharge instructionsAdditional Instructions Thank you for trusting us with your care today! Please take prescribed Lasix. Please return to the emergency department if your symptoms change or worsen. Specifically develop worsening chest pain, leg swelling or shortness of breath. Please follow with your primary care physician for further outpatient evaluation and management.[facility] Work Phone: Hospital Discharge instructionsAdditional Instructions Your workup today revealed no signs of pneumonia or urinary tract infection or metabolic derangement from your diabetes. Your history and exam is consistent with mild dehydration which has been corrected by IV fluids in the ER. Please continue all of your home medications as directed by your doctor and return to the ER should you have any further concernsWAshtabula [facility] Center Work Phone: Reason for referral (narrative)No reason for referral information availableWAshtabula County Medical Center Work Phone: Advance Directives Documents on File Type Date Recorded Patient Training Systems Officer Expl anation Advance Directive(s) 01/20/2017 7:47 AM Advance Directive(s) 09/05/2015 4:07 PM Advance Directive Response Recorded Date/ Time Advance Directives No January 13, 2020 3:59pm Living Will No July 18, 2021 9:19pm Power of Translational Specialist No July 18 9:19pm Advance Directive Response Recorded Date/ Time Advance Directives No January 13, 2020 3:59pm Living Will No December 08 022 11:25pm Power of Translational Specialist No December 08, 2021 11:25pm Advance Directive Response Recorded Date/ Time Advance Directives No January 13, 2020 2:59pm Living Will No March 01, 022 9:51pm Power of Translational Specialist No March 01, 2022 9:51pm Advance Directive Response Recorded Date/ Time Advance Directives No January 13, 2020 2:59pm Living Will No April 18 1:40am Power of Translational Specialist No April 18, 2022 1:40am Advance Directive Response Recorded Date/ Time Advance Directives No January 13, 2020 2:59pm Living Will No May 21 023 1:36am Power of Translational Specialist No May 21, 2022 1:36am Advance Directive Response Recorded Date/ Time Advance Directives No January 13, 2020 2:59pm Living Will No April 25 3:42pm Power of Translational Specialist No April 25, 2023 3:42pm Advance Directive Response Recorded Date/ Time Advance Directives No January 13, 2020 2:59pm Living Will No May 24 024 12:27am Power of Translational Specialist No May 24, 2023 12:27am Advance Directive Response Recorded Date/ Time Living Will No August 23, 2023 6 :30pm Do you have a Healthcare Power of Translational Specialist? No August 23, 2023 6:30pm Advance Directives on File No William 2024 8:15am Living Will No April 20 8:15am Do you have a Healthcare Power of Translational Specialist? No April 20, 2024 8:15am Advance Directives No April 20, 2024 8:15am Living Will No May 21 8:31pm Do you have a Healthcare Power of Translational Specialist? No May 21, 2024 8:31pm Advance Directive Response Recorded Date/ Time Living Will No August 23, 2023 6 :30pm Do you have a Healthcare Power of Translational Specialist? No August 23, 2023 6:30pm Living Will No May 21 025 8:31pm Do you have a Healthcare Power of Translational Specialist? No May 21, 2024 8:31pm Living Will No June 18, 2024 6:24am Do you have a Healthcare Power of Translational Specialist? No June 18, 2024 6:24am Do you have a Healthcare Power of Translational Specialist? No July 29, 2024 8:08pm Advance Directives No April 20, 2024 8:15am Advance Directive Response Recorded Date/ Time Living Will No August 23, 2023 6 :30pm Do you have a Healthcare Power of Translational Specialist? No August 23, 2023 6:30pm Do you have a Healthcare Power of Translational Specialist? No September 18, 2024 10:00am Living Will No May 21 8:31pm Do you have a Healthcare Power of Translational Specialist? No May 21, 2024 8:31pm Living Will No June 18, 2024 6:24am Do you have a Healthcare Power of Translational Specialist? No June 18, 2024 6:24am Do you have a Healthcare Power of Translational Specialist? No July 29, 2024 8:08pm Advance Directives No April 20, 2024 8:15am Advance Directive Response Recorded Date/ Time Living Will No August 23, 2023 6 :30pm Do you have a Healthcare Power of Translational Specialist? No August 23, 2023 6:30pm Do you have a Healthcare Power of Translational Specialist? No September 18, 2024 3:22pm Living Will No June 18, 2024 6:24am Do you have a Healthcare Power of Translational Specialist? No June 18, 2024 6:24am Do you have a Healthcare Power of Translational Specialist? No July 29, 2024 8:08pm Advance Directives No April 20, 2024 8:15am Advance Directive Response Recorded Date/ Time Living Will No August 23, 2023 6 :30pm Do you have a Healthcare Power of Translational Specialist? No August 23, 2023 6:30pm Do you have a Healthcare Power of Translational Specialist? No September 18, 2024 3:22pm Do you have a Healthcare Power of Translational Specialist? No October 19, 2024 6:36pm Do you have a Healthcare Power of Translational Specialist? No July 29, 2024 8:08pm Advance Directives No April 20, 2024 8:15am Advance Directive Response Recorded Date/ Time Living Will No August 23, 2023 6 :30pm Do you have a Healthcare Power of Translational Specialist? No August 23, 2023 6:30pm Do you have a Healthcare Power of Translational Specialist? No September 18, 2024 3:22pm Do you have a Healthcare Power of Translational Specialist? No October 19, 2024 6:36pm Do you have a Healthcare Power of Translational Specialist? Yes October 21, 2024 4:34pm Do you have a Healthcare Power of Translational Specialist? No July 29, 2024 8:08pm Advance Directives No April 20, 2024 8:15am Advance Directive Response Recorded Date/ Time Living Will No August 23, 2023 6 :30pm Do you have a Healthcare Power of Translational Specialist? No August 23, 2023 6:30pm Do you have a Healthcare Power of Translational Specialist? No September 18, 2024 3:22pm Do you have a Healthcare Power of Translational Specialist? No October 19, 2024 6:36pm Do you have a Healthcare Power of Translational Specialist? Yes October 21, 2024 4:34pm Do you have a Healthcare Power of Translational Specialist? No July 29, 2024 8:08pm Do you have a Healthcare Power of Translational Specialist? Yes October 23, 2024 6:04pm Advance Directives No April 20, 2024 8:15am Advance Directive Response Recorded Date/ Time Living Will No August 23, 2023 6 :30pm Do you have a Healthcare Power of Translational Specialist? No August 23, 2023 6:30pm Do you have a Healthcare Power of Translational Specialist? No September 18, 2024 3:22pm Do you have a Healthcare Power of Translational Specialist? No October 19, 2024 6:36pm Do you have a Healthcare Power of Translational Specialist? Yes October 21, 2024 4:34pm Do you have a Healthcare Power of Translational Specialist? No July 29, 2024 8:08pm Do you have a Healthcare Power of Translational Specialist? Yes October 23, 2024 6:04pm Do you have a Healthcare Power of Translational Specialist? No October 26, 2024 11:37pm Advance Directives No April 20, 2024 8:15am [...] diabetes mellitus Stenosis of right carotid artery [id number] Nicotine dependence Chief Complaint 3 M FU Amb Documentation LOWER lung cancer screening SCREENING 3 M FU NSTEMI Reason for Visit Essential (primary) hypertension Insulin dependent diabetes mellitus Stenosis of right carotid artery [id number] Nicotine dependence Essential (primary) hypertension Hyperlipidemia Insulin dependent diabetes mellitus H/O coronary artery bypass surgery NSTEMI, initial episode of care Insulin dependent diabetes mellitus Nicotine dependence Chief Complaint LOWER lung cancer screening SCREENING 3 M FU NSTEMI NSTEMI NSTEMI NSTEMI [facility] FU- HEART ATTACK s/p [facility] ED NSTEMI 1-14 lower extrem Reason for Visit [id number] Nicotine dependence Essential (primary) hypertension Hyperlipidemia Insulin [...] 3 M FU NSTEMI NSTEMI NSTEMI NSTEMI [facility] FU- HEART ATTACK s/p [facility] ED NSTEMI 1-14 lower extrem EORDER Reason for Visit [id number] Nicotine dependence Essential (primary) hypertension Hyperlipidemia Insulin [...] hypertension Insulin dependent diabetes mellitus Nicotine dependence [id number] Nicotine dependence Chief Complaint Admit Date 3-4 M FU February 24, 2024 11:07am 3 M FU February 24, 2024 12:58pm PVD, OPEN WOUND March 09, 2024 9 :11am 4-5 WK FU Manuel 17th, 2024 10:47am Peripheral vascular disease, unspecified March 29, 2024 1:23pm 6 M FU April 01, 2024 9:49am Discuss CTA results April 08, 2024 12 :56pm Atherosclerosis of [place] April 20, 2024 6:47am Atherosclerosis of [place] April [...] February 24, 2024 11:07am Essential (primary) hypertension [facility] r 2023 12:58pm Insulin dependent diabetes mellitus [facility] 2023 12:58pm Nicotine dependence February 24, 2024 12:58pm Fissure in skin of left foot February 232023 12:58pm Fissure in skin of right foot March 062023 10:47am PAD (peripheral artery disease) March 22, 2024 10:47am Cardiac murmur April 01, 2024 9:49am Essential (primary) hypertension [facility] r 2023 9:49am Hyperlipidemia April 01, 2024 9:49am Nicotine dependence April 01, 2024 9:49am Stenosis of right carotid artery [facility] 2023 9:49am H/O coronary artery bypass [...] [place] PD June 20, 2024 10:58am S/P [facility] 06/21July 12, 2024 9:51 am Discuss Results [...] Type [facility] 11:21am Hyperlipidemia August 02, [...] 2024 9:55am Chief Complaint Admit Date S/P [facility] 06/21July 12, 2024 9:51 am Discuss Results [...] 2024 9:55am Chief Complaint Admit Date S/P [facility] 06/21July 12, 2024 9:51 am Discuss Results [...] 4:25 pm Chief Complaint Admit Date S/P H 06/21July 12, 2024 9:51 am Discuss Results [...] pm CELLULITIS October 23, 2024 5:53 pm Chief Complaint Admit Date S/P [facility] 06/21July 12, 2024 9:51 am [...] pm CELLULITIS October 23, 2024 5:53 pm hyperglycemia October 26, 2024 11:2 7pm Chief Complaint Admit Date S/P [facility] 06/21July 12, 2024 9:51 am [...] pm CELLULITIS October 23, 2024 5:53 pm hyperglycemia October 26, 2024 11:2 7pm 6 WK FU November 03, 2024 10:1 5am Reason for Visit Admit Date Aortic valve [...] artery bypass surgery September 27, 2024 9:55am Aortic valve stenosis November 03, 2024 10 :15am LV dysfunction November 03, 2024 10:1 5am Essential (primary) hypertension November 032024 10:15am Hyperlipidemia November 03, 2024 10:1 5am Nicotine dependence November 03, 2024 10:1 5am Stenosis of right carotid artery November 032024 10:15am H/O coronary artery bypass surgery November 03, 2024 10:15am Chief Complaint Admit Date S/P [facility] 06/21July 12, 2024 9:51 am Discuss Results [...] pm CELLULITIS October 23, 2024 5:53 pm hyperglycemia October 26, 2024 11:2 7pm 6 WK FU November 03, 2024 10:1 5am 3 M FU/[facility] ER FU November 04, 2024 1:3 6pm Chief Complaint Admit Date Discuss Results July 14, 2024 9:5 4am [...] pm CELLULITIS October 23, 2024 5:53 pm hyperglycemia October 26, 2024 11:2 7pm 6 WK FU November 03, 2024 10:1 5am 3 M FU/[facility] ER FU November 04, 2024 1:3 6pm ACUTE LEG SWELLING FU November 10, 2024 1 0:05am Reason for Visit Admit Date Atherosclerosis of right lower extremity with ulceration July 14, 2024 9:54am CHF (congestive heart failure) July 11:21am Type 2 [facility], 2024 11:21am Hyperlipidemia August 02, [...] artery bypass surgery September 27, 2024 9:55am Aortic valve stenosis November 03, 2024 10 :15am LV dysfunction November 03, 2024 10:1 5am Essential (primary) hypertension November 032024 10:15am Hyperlipidemia November 03, 2024 10:1 5am Nicotine dependence November 03, 2024 10:1 5am Stenosis of right carotid artery November 032024 10:15am H/O coronary artery bypass surgery November 03, 2024 10:15am Type 2 diabetes mellitus treated with in [facility] November 04, 2024 1:36pm Acute on chronic HFrEF (hear t failure with reduced ejection fraction) November 04, 2024 1:36pm 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 November 04, 2024 1:36pm Essential (primary) hypertension November 04, 2024 1:36pm Hyperlipidemia November 04, 2024 1:3 6pm Lymphorrhea November 10, 2024 10: 05am Acute on chronic HFrEF (hear t failure with reduced ejection fraction) November 10, 2024 10:05am Family History Relationship Condition Age at Onset Recorded Date/T [...] Yamilka Parekh MD [address] [place] [address] Ct Imaging Referral ID Status Reason Start Date Expiration Date Visits Requested Visits Authorized [id number] Additional Clinical Info Needed Auto-Generat ed Referral 01/06/2022 02/05/2023 1 1 Specialty Diagnoses / Procedures Referred By David rausch Referred To Contact CT IMAGING Diagnoses Left groin pain Procedures CT PELVIS WO IVCON CT PELVIS W/O CONTRAST MATERIAL Yamilka Parekh MD [address] [place] [address] Ct Imaging [id number] Referral ID Status Reason Start Date Expiration Date V isits Requested Visits Authorized [id number] Closed Auto-Generate d Referral 01/06/2022 03/16/2022 2 [...] CT Specialty Diagnoses / Procedures Referred By Contac t Referred To Contact CT IMAGING Diagnoses Left groin pain Procedures CT PELVIS WO IVCON CT PELVIS W/O CONTRAST MATERIAL Yamilka Parekh MD [address] [place] [address] [place] [id number] Referral ID Status Reason Start Date Expiration Date V isits Requested Visits Authorized [id number] Closed Auto-Generate d Referral 01/06/2022 03/16/2022 2 [...] Care Teams (unrecognized sec tion and content) Gauger Chief Relationship Specialty Start Date End Date Xiang Rogers DO [address] [place] [address] PCP - General Family Medicine 01/03/22 Gauger Chief Relationship Specialty Start Date End Date Xiang Rogers DO [address] [place] [address] PCP - General Family Medicine 01/03/22 Gauger Chief Relationship Specialty Start Date End Date Xiang Rogers DO [address] [place] [address] PCP - General Family Medicine 01/03/22 Team [...] DO Primary Care Provider Active Kimberli Mora PART TIME FLEXIBLE CLERK, PART TIME FLEXIBLE CLERK-C Attending Provider, Referring Provider Active Team Status: [...] Rogers DO Primary Care Provider Active Dr. Calos Quinn MD Attending Provider Active Team Status: Inactive Member Role Status Dates Dr. Xiang Rogers DO Primary Care Provider, Referr ing Provider Active Dean Pena PART TIME FLEXIBLE CLERK, PART TIME FLEXIBLE CLERK-C Attending Provider Active Team Status: Inactive Member [...] DO Primary Care Provider Active Dean Pena PART TIME FLEXIBLE CLERK, PART TIME FLEXIBLE CLERK-C Attending Provider, Referring Pro vider Active Gauger Chief Relationship Specialty Start Date End Date Xiang Rogers DO [address] [place] [address] PCP - General Family Medicine 01/03/22 Gauger Chief Relationship Specialty Start Date End Date Xiang Rogers DO [address] [place], [place] [address] PCP - General Family Medicine 01/03/22 Team [...] Provider, Referr ing Provider Active Kimberli Mora PART TIME FLEXIBLE CLERK, PART TIME FLEXIBLE CLERK-C Attending Provider Active Team Status: Inactive Member Role Status Dates Dr. Xiang Rogers DO Primary Care Provider Active Dr. Saúl Aguilar DO Attending Provider, Emergency P gino Active Gauger Chief Relationship Specialty Start Date End Date Xiang Rogers DO [address] [place], [place] [id number] PCP - [facility] 01/03/22 Team Status: Active Member Role [...] 2024 End: May 21, 2024 Dr. Saúl Schwiger , DO Emergency Provider Active Start: May 21, [...] 2024 End: June 20, 2024 Dean Pena PART TIME FLEXIBLE CLERK, PART TIME FLEXIBLE CLERK-C Other Provider Active Start : June 18, [...] Active Start: June 19, 2024 Dean Pena PART TIME FLEXIBLE CLERK, PART TIME FLEXIBLE CLERK-C Other Provider Active Start : June 19, [...] Active Start: June 19, 2024 Dean Pena PART TIME FLEXIBLE CLERK, PART TIME FLEXIBLE CLERK-C Other Provider Active Start : June 19, [...] Active Start: June 20, 2024 Dean Pena PART TIME FLEXIBLE CLERK, PART TIME FLEXIBLE CLERK-C Other Provider Active Start : June 20, [...] Active St art: June 20, 2024 Dr. eMrced Guerrier MD Other Provider Active Star t: [...] Active Start: June 20, 2024 Dean Pena PART TIME FLEXIBLE CLERK, PART TIME FLEXIBLE CLERK-C Other Provider Active Start : June 20, [...] 2024 End: July 12, 2024 Ronit Galvez PART TIME FLEXIBLE CLERK, PART TIME FLEXIBLE CLERK-C Attending Provider Active Start: July 12, 2024 [...] End: September 21, 2024 Dr. Seth Carrington DO [...] September 27, 2024 Dr. Xiang Rogers , DO Referring Provider Active Start: September 27, [...] 2024 End: July 12, 2024 Ronit Galvez PART TIME FLEXIBLE CLERK, PART TIME FLEXIBLE CLERK-C Attending Provider Active Start: July 12, 2024 [...] Active Member Role/Relationship Status Dates Dr. Xiang R Brown , DO Primary Care Provider Active Start: [...] End: October 21, 2024 Dr. Severo Zeng DO Emergency Provider Active S tart: October [...] October 23, 2024 End: October 23, 2024 Team Status: Inactive Member Role/Relationship Status Dates Dr. Xiang R Brown , DO Primary Care Provider Active Start: October 19, 2024 End: October 19, 2024 Dr. Valentín Miller , DO Attending Provider Active Start: October 19, 2024 End: October 19, 2024 Dr. Valentín Miller , DO Emergency Provider Active Start: October 19, 2024 End: October 19, 2024 Team Status: Inactive Member Role/Relationship Status Dates Dr. Xiang Rogers DO Primary Care Provider Active Start: October 21, 2024 End: October 21, 2024 Dr. Severo Zeng , DO Attending Provider Active S tart: October 21, 2024 End: October 21, 2024 Dr. Severo Zeng , DO Emergency Provider Active S tart: October 21, 2024 End: October 21, 2024 Team Status: Inactive Member Role/Relationship Status Dates Dr. Xiang Rogers DO Primary Care Provider Active Start: October 26, 2024 End: October 27, 2024 Dr. Bronson Tolentino , DO Emergency Provider Active Start: October 26, 2024 End: October 27, 2024 Team Status: Inactive Member Role/Relationship Status Dates Dr. Xiang Rogers DO Primary Care Provider Active Start: October 23, 2024 End: October 23, 2024 Dr. Devin Curry MD Attending Provider Active S tart: October 23, 2024 End: October 23, 2024 Dr. Devin Curry MD Referring Provider Active S tart: October 23, 2024 End: October 23, 2024 Dr. Devin Curry MD Emergency Provider Active S tart: October 23, 2024 End: October 23, 2024 Team Status: Inactive Member Role/Relationship Status Dates Dr. Xiang Rogers DO Primary Care Provider Active Start: October 26, 2024 End: October 27, 2024 Dr. Bronson Tolentino DO Attending Provider Active Start: October 26, 2024 End: October 27, 2024 Dr. Bronson Tolentino , DO Emergency Provider Active Start: October 26, 2024 End: October 27, 2024 Team Status: Inactive Member Role/Relationship Status Dates Dr. Xiang Rogers DO Primary Care Provider Active Start: November 03, 2024 End: November 03, 2024 Dr. Xiang Rogers DO Referring Provider Active Start: November 03, 2024 End: November 03, 2024 Magaly DEVINE, PA Attending Provider Active Start: November 03, 2024 End: November 03, 2024 Team Status: Inactive Member Role/Relationship Status Dates Dr. Xiang Rogers DO Primary Care Provider Active Start: November 04, 2024 End: November 04, 2024 Dr. Xiang Rogers DO Attending Provider Active Start: November 04, 2024 End: November 04, 2024 Dr. Xiang Rogers DO Referring Provider Active Start: November 04, 2024 End: November 04, 2024 Team Status: Inactive Member Role/Relationship Status [...] September 19, 2024 Dr. Seth Carrington , Attending Provider Active Start: September 19, 2024 [...] Role/Relationship Status Dates Dr. Xiang Rogers , Primary Care Provider Active Start: September 21, [...] October 19, 2024 Dr. Valentín Miller DO Attending Provider Active Start: October 19, 2024 End: October 19, 2024 Dr. Valentín Miller DO Emergency Provider Active Start: October 19, 2024 End: October 19, 2024 Team Status: Inactive Member Role/Relationship Status Dates Dr. Xiang Rogers DO Primary Care Provider Active Start: October 21, 2024 End: October 21, 2024 Dr. Severo Zeng , Attending Provider Active S tart: October 21, 2024 End: October 21, 2024 Dr. Severo Zeng , DO Emergency Provider Active S tart: October 21, 2024 End: October 21, 2024 Team Status: Inactive Member Role/Relationship Status Dates Dr. Xiang Rogers DO Primary Care Provider Active Start: October 23, 2024 End: October 23, 2024 Dr. Devin Curry MD Attending Provider Active S tart: October 23, 2024 End: October 23, 2024 Dr. Devin Curry MD Referring Provider Active S tart: October 23, 2024 End: October 23, 2024 Dr. Devin Curry MD Emergency Provider Active S tart: October 23, 2024 End: October 23, 2024 Team Status: Inactive Member Role/Relationship Status Dates Dr. Xiang Rogers DO Primary Care Provider Active Start: October 26, 2024 End: October 27, 2024 Dr. Bronson Tolentino DO Attending Provider Active Start: October 26, 2024 End: October 27, 2024 Dr. Bronson Tolentino DO Emergency Provider Active Start: October 26, 2024 End: October 27, 2024 Team Status: Inactive Member Role/Relationship Status Dates Dr. Xiang Rogers DO Primary Care Provider Active Start: November 03, 2024 End: November 03, 2024 Dr. Xiang Rogers DO Referring Provider Active Start: November 03, 2024 End: November 03, 2024 Magaly DEVINE, PA Attending Provider Active Start: November 03, 2024 End: November 03, 2024 Team Status: Inactive Member Role/Relationship Status Dates Dr. Xiang Rogers DO Primary Care Provider Active Start: November 04, 2024 End: November 04, 2024 Dr. Xiang Rogers DO Attending Provider Active Start: November 04, 2024 End: November 04, 2024 Dr. Xiang Rogers DO Referring Provider Active Start: November 04, 2024 End: November 04, 2024 Team Status: Inactive Member Role/Relationship Status Dates Dr. Xiang Rogers DO Primary Care Provider Active Start: November 10, 2024 End: November 10, 2024 Dr. Xiang Rogers DO Referring Provider Active Start: November 10, 2024 End: November 10, 2024 ADY Dela Cruz Attending Provider Active Start: November 10, 2024 End: November 10, 2024 (unrecognized sect ion and content) No Status Records FoundNo Status Records Found INFORMATION SOURCE (unrecogn ized section and content) DATE CREATED AUTHOR 02/05/2022 [facility] DATE CREATED AUTHOR 'S BARRY FAITH 11/05/2024 [facility] FOR RECORDS PERTAINING TO PATIENTS WHO [...] BE BASED ON THE PRIMARY CLINICAL RECORDS. [facility] [employer] [facility]. provides no warranty or guarantee of the accuracy or completeness of information in this document.
--- OUTSIDE RECORDS SUMMARY | 2024-11-10 20:12 | XMS RPT_ITS | CCD ---
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 Xiang Rogers Primary Care Provider [phone] Dr. Xiang Rogers Attending Provider [phone] Dr. Xiang Rogers Referring Provider [phone] Dr. Maribell Moura Emergency Provider Elizabeth, Dr. Flori Jones Admit Provider Elizabeth, Dr. Flori Jones Other Provider Fareed, Dr. Blackwood Other Provider Dr. Steve Fields Attending Provider Unavailable Diamond, Dr. Wilson Other Provider Unavailable Dr. Calos Quinn Attending Provider Roof CUSTOMER SOLUTIONS TEAMMATE, CUSTOMER SOLUTIONS TEAMMATE-C Dean Carson Attending Provider Xiang Rogers DO Primary Care Provider Dr. Xiang Rogers Primary Care Provider Dr. Xiang Rogers Attending Provider Dr. Xiang Rogers Referring Provider Roof CUSTOMER SOLUTIONS TEAMMATE, CUSTOMER SOLUTIONS TEAMMATE-C Dean Carson Attending Provider Dr. Xiang Rogers Primary Care Provider Dr. Xiang Rogers Referring Provider Dr. Xiang Rogers Attending Provider Dr. Xiang Rogers Primary Care Provider Dr. Xiang Rogers Referring Provider [facility] CUSTOMER SOLUTIONS TEAMMATE, CUSTOMER SOLUTIONS TEAMMATE-C Kimberli Attending Provider Xiang Rogers DO Primary [...] Laurita WESTBROOK, Dr. Lyn Other Provider Jean CUSTOMER SOLUTIONS TEAMMATE-C, Dean Carson Other Provider Magaly Denise Other [...] Xiang Rogers DO Primary Care Provider [phone] Lubna Calhoun Attending Provider Lubna Calhoun Referring [...] Flowers Consulting Unavailable Saúl Flowers Attending Unavailable [place], Saúl Referring Unavailable Brown, Xiang R Primary [...] Attending Unavailable Brown, Xiang R Referring Unavailable [place] Attending Unavailable Brown, Xiang R Primary Care Unavailable Lionel Saúl Attending Unavailable Manley, Lubna Referring Unavailable [...] Unavailable Brown, Xiang R Referring Unavailable Lenny CUSTOMER SOLUTIONS TEAMMATE, Ronit Attending Unavailable Brown, Xiang R Primary Care Unavailable Lenny CUSTOMER SOLUTIONS TEAMMATE, Ronit Attending Unavailable Lenny CUSTOMER SOLUTIONS TEAMMATE, Ronit Referring Unavailable Brown, Xiang R Primary [...] Brown, Xiang R Primary Care Unavailable Bronson Tloentino Attending Unavailable Brown, Xiang R Primary Care Unavailable Abby CUSTOMER SOLUTIONS TEAMMATE, Kimberli Referring Unavailable Abby CUSTOMER SOLUTIONS TEAMMATE, Kimberli Attending Unavailable Brown, Xiang R Primary Care Unavailable Lenny CUSTOMER SOLUTIONS TEAMMATE, Ronit Referring Unavailable Lenny CUSTOMER SOLUTIONS TEAMMATE, Ronit Attending Unavailable Brown, Xiang R Primary [...] Consulting Unavailable George Ball Consulting Unavailable Kai, [place] Consulting Unavailable Belal, Farouk Consulting Unavailable Jose Garcia Consulting Unavailable Nagadulce mariathi, Nagapradee Consulting Unavailabl e Satti, Abisai Consulting Unavailable Riki Shay Consulting Unavailable Dean Pena NP Consulting Unavailable Trinidad DEVINE, Magaly Neslon Consulting Unavail able Avery Valderrama Consulting Unavailable [...] Consulting Unavailabl e Satti, Abisai Consulting Unavailable Camden Riki Consulting Unavailable Roof CUSTOMER SOLUTIONS TEAMMATEDean Consulting Unavailable Magaly Denise Consulting Unavail able [...] Provider Dr. Xiang Rogers DO Referring Provider [phone] Leah King Attending Provider [phone] Allergies Allergy Classification Reported Allergen(s) Allergy Type Date of Onset Reaction(s) Facility (8 sources) Etodolac; Translations: [ETODOLAC] Drug Allergy 03-12-2005 GI Upset [facility] (20 sources) Amoxicillin; Translations: [AMOXICILLIN] Drug Allergy 07-18-2021 Angioedema [facility] (20 sources) Lindane; Translations: [LINDANE] Drug Allergy 07-18-2021 Rash [facility] (1 source) Amoxicillin Drug Allergy 11-04-2024 [facility] (1 source) Lindane Drug Allergy 11-04-2024 [facility] (1 source) Unable to Assess Drug allergy (disorder) 06-17-2024 [facility] Medications Current Medications Medication Drug [...] January 13, 2023 January 26, 2023 2:35pm [id number] 200 actuat albuter ol 0.09 mg/actuat metered [...] the tongue every 5 minutes as needed. Schriever-3 Fatty Acids-Fish Oil (12 sources) Start: 07-10-2017 End: 07-28-2017 Schriever-3 Fatty Acids-Fish Oil Discontinued 2 EACH PO DAILY July 10, 2017 3:35pm July 28, 2017 1:36pm Start: 07-10-2017 End: 07-28-2017 Schriever-3 Fatty Acids-Fish Oil Discontinued 2 EACH PO DAILY July 09, 2017 11:00pm July 28, 2017 12:36pm Start: 07-10-2017 End: 07-28-2017 Schriever-3 Fatty Acids-Fish Oil Discontinued 2 EACH PO DAILY July 10, 2017 12:00am July 28, 2017 1:36pm Schriever-3 Fatty Acids-Fish Oil 1 EACH capsule (1 source) Start: 07-10-2017 End: 07-28-2017 Schriever-3 Fatty Acids-Fish Oil 1 EACH capsule Discontinued [...] Comment on above: Take 2 tablets by [facility] once daily. 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; Translations: [watermaster (current) use of insulin] Onset: 06-24-2024 Episodic [...] Vis clarissa 11-04-2024 Internal Medicine Office Visit [facility] Absolute lymphocyte countOrd ered By: Magaly Abdi on 10-27-2024 Lymphocytes Auto (Unsp spec) [#/Vol] 0.95 10*3/uL 0.83-4.51 [facility] Anion gap in Serum or Plasma Ordered By: Bronson Tolentino on 10-27-2024 Anion gap [Moles/Vol] 13 mmol/L 08-18 [facility] Automated lymphocyte count a s percentage of total leukocytesOrdered By: Magaly Abdi on 10-27-2024 Lymphocytes/100 WBC Auto (Unsp spec) 14.2 % Low - [facility] BUN/creatinine ratioOrdered By: Bronson Tolentino on 10-27-2024 Urea nitrogen/Creatinine [Mass ratio] 18.1 mg/mg 01-23 [facility] Basic Metabolic Profile (BMP )on 10-27-2024 BUN/CRE 18.1 RATIO Normal 01-23 [facility] Comment on above: Performed By: #### L 500.3400, L501.2450, L100.0100, L500.2500, L503.6005, L501.5200 ####[facility] [address] [place], [address] Calcium [Mass/Vol] 8.8 mg/dL Normal 7.6-11.0 [facility] Comment on above: Performed By: #### L 500.3400, L501.2450, L100.0100, L500.2500, L503.6005, L501.5200 ####[facility] [address] [place], [address] Chloride [Moles/Vol] 98 mmol/L Normal 98-108 [facility] Comment on above: Performed By: #### L 500.3400, L501.2450, L100.0100, L500.2500, L503.6005, L501.5200 ####[facility] [address] [place], [address] CO2 [Moles/Vol] 20.9 mmol/L Low 21.0-32.0 [facility] Comment on above: Performed By: #### L 500.3400, L501.2450, L100.0100, L500.2500, L503.6005, L501.5200 ####[facility] [address] [place], [address] Creatinine [Mass/Vol] 0.99 mg/dL Normal 0.70-1.20 [facility] Comment on above: Performed By: #### L 500.3400, L501.2450, L100.0100, L500.2500, L503.6005, L501.5200 ####[facility] [address] [place], [address] ECRCL 87.66 ml/min Normal 50-250 [facility] Comment on above: Performed By: #### L 500.3400, L501.2450, L100.0100, L500.2500, L503.6005, L501.5200 ####[facility] [address] [place], [address] GAP 13 Normal 5-15 [facility] Comment on above: Performed By: #### L 500.3400, L501.2450, L100.0100, L500.2500, L503.6005, L501.5200 ####[facility] [address] [place], [address] GFR/1.73 sq M.predicted among non-blacks MDRD (S/P/Bld) [Vol rate/Area] 85 mL/min/{1.73_m2} Normal >60 [facility] Comment on above: Result Comment: mL/m in/1.73m2 CKD-EPI Creatinine Equation (2020) Performed By: #### L 500.3400, L501.2450, L100.0100, L500.2500, L503.6005, L501.5200 ####[facility] [address] [place], [address] Glucose [Mass/Vol] 203 mg/dL High 70-99 [facility] Comment on above: Performed By: #### L 500.3400, L501.2450, L100.0100, L500.2500, L503.6005, L501.5200 ####[facility] [address] [place], [address] Potassium [Moles/Vol] 4.2 mmol/L Normal 3.3-5.1 [facility] Comment on above: Result Comment: Hemo lysis present, Results??could be affected.?? Performed By: #### L 500.3400, L501.2450, L100.0100, L500.2500, L503.6005, L501.5200 ####[facility] [address] [place], [place], [phone] Sodium [Moles/Vol] 132 mmol/L Low 133-145 [facility] Comment on above: Performed By: #### L 500.3400, L501.2450, L100.0100, L500.2500, L503.6005, L501.5200 ####[facility] [address] [place], [address] Urea nitrogen [Mass/Vol] 18 mg/dL Normal 4-19 [facility] Comment on above: Performed By: #### L 500.3400, L501.2450, L100.0100, L500.2500, L503.6005, L501.5200 ####[facility] [address] [place], [place], [phone] Basophil percentageOrdered B y: Magaly Abdi on 10-27-2024 Basophils/100 WBC (Bld) 0.3 % 0-1 [facility] Bilirubin Test strip Ql (U)O rdered By: Bronson Tolentino on 10-27-2024 Bilirubin Ql (U) Negative Negative [facility] Bilirubin directOrdered By: Bronson Tolentino on 10-27-2024 Bilirubin.direct [Mass/Vol] 0.17 mg/dL 0.00-0.30 [facility] Bilirubin, totalOrdered By: Bronson Tolentino on 10-27-2024 Bilirubin [Mass/Vol] 0.99 mg/dL 0.00-1.30 [facility] CBC W/Diff, Automatedon 10-05 Absolute Lymph 0.95 X10 3/uL Normal 0.83-4.51 [facility] Comment on above: Order Comment: REDRA W. PREVIOUS SPECIMEN REJECTED DUE TOCLOTTED. 10/27/2427 Hermilo R Law. Performed By: #### L 100.0100 ####[facility] [address] [place], [address] Absolute Neut 5.3 X10 3/uL Normal 2.0-7.7 [facility] Comment on above: Order Comment: REDRA W. PREVIOUS SPECIMEN REJECTED DUE TOCLOTTED. 10/27/2427 Hermilo R Law. Performed By: #### L 100.0100 ####[facility] [address] [place], [address] Basophils/100 WBC (Bld) 0.3 % Normal 0-1 [facility] Comment on above: Order Comment: REDRA W. PREVIOUS SPECIMEN REJECTED DUE TOCLOTTED. 10/27/2427 Hermlio R Law. Performed By: #### L 100.0100 ####[facility] [address] [place], [address] Eosinophils/100 WBC (Bld) 2.2 % Normal 0-5 [facility] Comment on above: Order Comment: REDRA W. PREVIOUS SPECIMEN REJECTED DUE TOCLOTTED. 10/27/2427 Hermilo R Law. Performed By: #### L 100.0100 ####[facility] [address] [place], [address] Erythrocyte distribution width (RBC) [Ratio] 13.2 % Normal 11.6-14.6 [facility] Comment on above: Order Comment: REDRA W. PREVIOUS SPECIMEN REJECTED DUE TOCLOTTED. 10/27/2427 Hermilo R Law. Performed By: #### L 100.0100 ####[facility] [address] [place], [address] Hematocrit (Bld) [Volume fraction] 41.6 % Normal 40-54 [facility] Comment on above: Order Comment: REDRA W. PREVIOUS SPECIMEN REJECTED DUE TOCLOTTED. 10/27/2427 Hermilo R Law. Performed By: #### L 100.0100 ####[facility] [address] [place], [address] Hemoglobin (Bld) [Mass/Vol] 13.3 g/dL Normal 13.0-16.5 [facility] Comment on above: Order Comment: REDRA W. PREVIOUS SPECIMEN REJECTED DUE TOCLOTTED. 10/27/2427 Hermilo R Law. Performed By: #### L 100.0100 ####[facility] [address] [place], [address] IG% 0.400 Normal 0.0-0.9 [facility] Comment on above: Order Comment: REDRA W. PREVIOUS SPECIMEN REJECTED DUE TOCLOTTED. 10/27/2427 Hermilo R Law. Result Comment: IG% - Immature Granulocytes (promyelocytes, myelocytes andmetamyelocytes) > 1% indicates that a LEFT SHIFT is Present. Performed By: #### L 100.0100 ####[facility] [address] [place], [address] Lymphocytes/100 WBC (Bld) 14.2 % Low 19-41 [facility] Comment on above: Order Comment: REDRA W. PREVIOUS SPECIMEN REJECTED DUE TOCLOTTED. 10/27/2427 Hermilo R Law. Performed By: #### L 100.0100 ####[facility] [address] [place], [address] MCH (RBC) [Entitic mass] 30.2 pg Normal 27.0-32.0 [facility] Comment on above: Order Comment: REDRA W. PREVIOUS SPECIMEN REJECTED DUE TOCLOTTED. 10/27/2427 Hermilo R Law. Performed By: #### L 100.0100 ####[facility] [address] [place], [address] MCHC (RBC) [Mass/Vol] 32.0 g/dL Normal 32-36 [facility] Comment on above: Order Comment: REDRA W. PREVIOUS SPECIMEN REJECTED DUE TOCLOTTED. 10/27/2427 Hermilo R Law. Performed By: #### L 100.0100 ####[facility] [address] [place], [address] MCV (RBC) [Entitic vol] 94.5 fL High 80-94 [facility] Comment on above: Order Comment: REDRA W. PREVIOUS SPECIMEN REJECTED DUE TOCLOTTED. 10/27/2427 Hermilo R Law. Performed By: #### L 100.0100 ####[facility] [address] [place], [address] Monocytes/100 WBC (Bld) 4.0 % Normal 0-10 [facility] Comment on above: Order Comment: REDRA W. PREVIOUS SPECIMEN REJECTED DUE TOCLOTTED. 10/27/2427 Hermilo R Law. Performed By: #### L 100.0100 ####[facility] [address] [place], [address] Neutrophils/100 WBC (Bld) 78.9 % High 47-70 [facility] Comment on above: Order Comment: REDRA W. PREVIOUS SPECIMEN REJECTED DUE TOCLOTTED. 10/27/2427 Hermilo R Law. Performed By: #### L 100.0100 ####[facility] [address] [place], [address] Nucleated RBC (Bld) [#/Vol] 0 10*3/uL Normal 0-5 [facility] Comment on above: Order Comment: REDRA W. PREVIOUS SPECIMEN REJECTED DUE TOCLOTTED. 10/27/2427 Hermilo R Law. Performed By: #### L 100.0100 ####[facility] [address] [place], [address] Platelet mean volume (Bld) [Entitic vol] 9.6 fL Normal 6.2-12.0 [facility] Comment on above: Order Comment: REDRA W. PREVIOUS SPECIMEN REJECTED DUE TOCLOTTED. 10/27/2427 Hermilo R Law. Performed By: #### L 100.0100 ####[facility] [address] [place], [address] Platelets (Bld) [#/Vol] 245 10*3/uL Normal 150-450 [facility] Comment on above: Order Comment: REDRA W. PREVIOUS SPECIMEN REJECTED DUE TOCLOTTED. 10/27/2427 Hermilo R Law. Performed By: #### L 100.0100 ####[facility] [address] [place], [address] RBC (Bld) [#/Vol] 4.40 10*6/uL Low 4.6-6.2 [facility] Comment on above: Order Comment: REDRA W. PREVIOUS SPECIMEN REJECTED DUE TOCLOTTED. 10/27/2427 Hermilo R Law. Performed By: #### L 100.0100 ####[facility] [address] [place], [address] RDW SD 46.2 fl High 35.1-43.9 [facility] Comment on above: Order Comment: REDRA W. PREVIOUS SPECIMEN REJECTED DUE TOCLOTTED. 10/27/2427 Hermilo R Law. Performed By: #### L 100.0100 ####[facility] [address] [place], [address] WBC (Bld) [#/Vol] 6.7 10*3/uL Normal 4.4-11.0 [facility] Comment on above: Order Comment: REDRA W. PREVIOUS SPECIMEN REJECTED DUE TOCLOTTED. 10/27/2427 Hermilo R Law. Performed By: #### L 100.0100 ####[facility] [address] [place], [address] Absolute Neut Normal 2.0-7.7 [facility] Comment on above: Result Comment: This specimen has been REJECTED due to Laboratory criteria:Clotted.SHUFF2 has been notified of need of recollection.10/27/2426 Hermilo R Law Performed By: #### L 500.3400, L501.2450, L100.0100, L500.2500, L503.6005, L501.5200 ####[facility] [address] [place], [address] HCT Normal 40-54 [facility] Comment on above: Result Comment: This specimen has been REJECTED due to Laboratory criteria:Clotted.[email or web address] has been notified of need of recollection.10/27/2426 Hermilo R Law Performed By: #### L 500.3400, L501.2450, L100.0100, L500.2500, L503.6005, L501.5200 ####[facility] [address] [place], [address] HGB Normal 13.0-16.5 [facility] Comment on above: Result Comment: This specimen has been REJECTED due to Laboratory criteria:Clotted.[email or web address] has been notified of need of recollection.10/27/2426 Hermilo R Law Performed By: #### L 500.3400, L501.2450, L100.0100, L500.2500, L503.6005, L501.5200 ####[facility] [address] [place], [address] MCH Normal 27.0-32.0 [facility] Comment on above: Result Comment: This specimen has been REJECTED due to Laboratory criteria:Clotted.[email or web address] has been notified of need of recollection.10/27/2426 Hermilo R Law Performed By: #### L 500.3400, L501.2450, L100.0100, L500.2500, L503.6005, L501.5200 ####[facility] [address] [place], [address] MCHC Normal 32-36 [facility] Comment on above: Result Comment: This specimen has been REJECTED due to Laboratory criteria:Clotted.[email or web address] has been notified of need of recollection.10/27/2426 Hermilo R Law Performed By: #### L 500.3400, L501.2450, L100.0100, L500.2500, L503.6005, L501.5200 ####[facility] [address] [place], [address] MCV Normal 80-94 [facility] Comment on above: Result Comment: This specimen has been REJECTED due to Laboratory criteria:Clotted.[email or web address] has been notified of need of recollection.10/27/2426 Hermilo R Law Performed By: #### L 500.3400, L501.2450, L100.0100, L500.2500, L503.6005, L501.5200 ####[facility] [address] [place], [address] NEUT% Normal 47-70 [facility] Comment on above: Result Comment: This specimen has been REJECTED due to Laboratory criteria:Clotted.[email or web address] has been notified of need of recollection.10/27/2426 Hermilo R Law Performed By: #### L 500.3400, L501.2450, L100.0100, L500.2500, L503.6005, L501.5200 ####[facility] [address] [place], [address] PLT Normal 150-450 [facility] Comment on above: Result Comment: This specimen has been REJECTED due to Laboratory criteria:Clotted.[email or web address] has been notified of need of recollection.10/27/2426 Hermilo R Law Performed By: #### L 500.3400, L501.2450, L100.0100, L500.2500, L503.6005, L501.5200 ####[facility] [address] [place], [address] RBC Normal 4.6-6.2 [facility] Comment on above: Result Comment: This specimen has been REJECTED due to Laboratory criteria:Clotted.[email or web address] has been notified of need of recollection.10/27/2426 Hermilo R Law Performed By: #### L 500.3400, L501.2450, L100.0100, L500.2500, L503.6005, L501.5200 ####[facility] [address] [place], [address] RDW CV Normal 11.6-14.6 [facility] Comment on above: Result Comment: This specimen has been REJECTED due to Laboratory criteria:Clotted.[email or web address] has been notified of need of recollection.10/27/2426 Hermilo R Law Performed By: #### L 500.3400, L501.2450, L100.0100, L500.2500, L503.6005, L501.5200 ####[facility] [address] [place], [address] RDW SD Normal 35.1-43.9 [facility] Comment on above: Result Comment: This specimen has been REJECTED due to Laboratory criteria:Clotted.SHUFF2 has been notified of need of recollection.10/27/2426 Hermilo R Law Performed By: #### L 500.3400, L501.2450, L100.0100, L500.2500, L503.6005, L501.5200 ####[facility] [address] [place], [address] WBC Normal 4.4-11.0 [facility] Comment on above: Result Comment: This specimen has been REJECTED due to Laboratory criteria:Clotted.[email or web address] has been notified of need of recollection.10/27/2426 Hermilo R Law Performed By: #### L 500.3400, L501.2450, L100.0100, L500.2500, L503.6005, L501.5200 ####[facility] [address] [place], [place], [address] CO2 (BldV) [Moles/Vol]Ordere d By: Bronson Tolentino on 10-27-2024 CO2 [Moles/Vol] 29 mmol/L 23-33 [facility] Carbon dioxide, total [Moles /volume] in Central venous bloodOrdered By: Bronson Tolentino on 10-27-2024 CO2 [Moles/Vol] 20.9 mmol/L Low 21.0-32.0 [facility] Chloride assayOrdered By: Aaliyah Tolentino on 10-27-2024 Chloride [Moles/Vol] 98 mmol/L 98-108 [facility] Emergency Department Summary on 10-27-2024 Emergency Department Summary Normal [facility] Eosinophil percentageOrdered By: Magaly Abdi on 10-27-2024 Eosinophils/100 WBC (Bld) 2.2 % 0-5 [facility] Erythrocyte distribution wid th ratioOrdered By: Magaly Abdi on 10-27-2024 Erythrocyte distribution width (RBC) [Ratio] 13.2 % 11.6-14.6 [facility] Erythrocyte distribution wid th standard deviationOrdered By: Magaly Abdi on 10-27-2024 Erythrocyte distribution width (RBC) [Ratio] 46.2 fl High 35.1-43.9 [facility] Glomerular filtration rate ( GFR) estimation/1.73 sq m using serum, plasma, or whole bOrdered By: Bronson Tolentino on 10-27-2024 GFR/1.73 sq M.predicted among non-blacks MDRD (S/P/Bld) [Vol rate/Area] 85 mL/min/{1.73_m2} >60 [facility] Hematocrit Auto (Bld) [Volum e fraction]Ordered By: Magaly Abdi on 10-27-2024 Hematocrit (Bld) [Volume fraction] 41.6 % 40-54 [facility] Hemoglobin measurementOrdere d By: Magaly Abdi on 10-27-2024 Hemoglobin (Bld) [Mass/Vol] 13.3 g/dL 13.0-16.5 [facility] Immature granulocytes/100 WB C Auto (Bld)Ordered By: Magaly Abdi on 10-27-2024 Immature granulocytes/100 WBC (Bld) 0.400 % 0.0-0.9 [facility] Ketones Test strip Ql (U)Ord ered By: Bronson Tolentino on 10-27-2024 Ketones Ql (U) Negative Negative [facility] Lactic Acidon 10-27-2024 Lactate [Moles/Vol] 1.4 mmol/L Normal 0.0-2.0 [facility] Comment on above: Order Comment: Y Performed By: #### L 500.3400, L501.2450, L100.0100, L500.2500, L503.6005, L501.5200 ####[facility] [address] [place], [place], [id number] Lipaseon 10-27-2024 Lipase [Catalytic activity/Vol] 37 U/L Normal 13-75 [facility] Comment on above: Result Comment: Gissell graf note:LIPASE revised reference range effective 22.New Lipase methodology. Expected to produce lower valuesthan the previous assay method.NEW Reference Range: 13 - 75 U/L Performed By: #### L 500.3400, L501.2450, L100.0100, L500.2500, L503.6005, L501.5200 ####[facility] [address] [place], [place], [id number] Liver Profileon 10-27-2024 Albumin [Mass/Vol] 3.5 g/dL Normal 3.4-4.8 [facility] Comment on above: Performed By: #### L 500.3400, L501.2450, L100.0100, L500.2500, L503.6005, L501.5200 ####[facility] [address] [place], [place], [address] ALK PHOS 97 U/L Normal 40-129 [facility] Comment on above: Performed By: #### L 500.3400, L501.2450, L100.0100, L500.2500, L503.6005, L501.5200 ####[facility] [address] [place], [address] ALT [Catalytic activity/Vol] 23 U/L Normal <=46 [facility] Comment on above: Result Comment: Hemo lysis present, Results??could be affected.?? Performed By: #### L 500.3400, L501.2450, L100.0100, L500.2500, L503.6005, L501.5200 ####[facility] [address] [place], [address] AST [Catalytic activity/Vol] 44 U/L High <=37 [facility] Comment on above: Result Comment: Hemo lysis present, Results??could be affected.?? Performed By: #### L 500.3400, L501.2450, L100.0100, L500.2500, L503.6005, L501.5200 ####[facility] [address] [place], [address] Bilirubin [Mass/Vol] 0.99 mg/dL Normal 0.00-1.30 [facility] Comment on above: Performed By: #### L 500.3400, L501.2450, L100.0100, L500.2500, L503.6005, L501.5200 ####[facility] [address] [place], [address] Bilirubin.direct [Mass/Vol] 0.17 mg/dL Normal 0.00-0.30 [facility] Comment on above: Result Comment: Hemo lysis present, Results??could be affected.?? Performed By: #### L 500.3400, L501.2450, L100.0100, L500.2500, L503.6005, L501.5200 ####[facility] [address] [place], [address] Globulin (S) [Mass/Vol] 3.1 g/dL Normal 2.2-4.2 [facility] Comment on above: Performed By: #### L 500.3400, L501.2450, L100.0100, L500.2500, L503.6005, L501.5200 ####[facility] [address] [place], [place], [id number] T PROT 6.6 g/dL Normal 5.9-8.4 [facility] Comment on above: Performed By: #### L 500.3400, L501.2450, L100.0100, L500.2500, L503.6005, L501.5200 ####[facility] [address] [place], [place], [phone] MCV (mean corpuscular volume ) determinationOrdered By: Magaly Abdi on 10-27-2024 MCV (RBC) [Entitic vol] 94.5 fL High 80-94 [facility] Magnesiumon 10-27-2024 Magnesium [Mass/Vol] 1.7 mg/dL Normal 1.5-2.2 [facility] Comment on above: Performed By: #### L 500.3400, L501.2450, L100.0100, L500.2500, L503.6005, L501.5200 ####[facility] [address] [place], [address] Magnesium measurement (mass/ volume)Ordered By: Bronson Tolentino on 10-27-2024 Magnesium (Unsp spec) [Mass/Vol] 1.7 mg/dL 1.5-2.2 [facility] Mean corpuscular hemoglobin (MCH) determinationOrdered By: Magaly Abdi on 10-27-2024 MCH (RBC) [Entitic mass] 30.2 pg 27.0-32.0 [facility] Monocyte percentageOrdered B y: Magaly Abdi on 10-27-2024 Monocytes/100 WBC (Bld) 4.0 % 0-10 [facility] Mucus LM Ql (Urine sed)Order ed By: Bronson Tolentino on 10-27-2024 Mucus Ql (Urine sed) 0 SEEN /hpf [facility] Neutrophil percentageOrdered By: Magaly Abdi on 10-27-2024 Neutrophils/100 WBC (Bld) 78.9 % High 47-70 [facility] Nitrite Test strip Ql (U)Ord ered By: Bronson Tolentino on 10-27-2024 Nitrite Ql (U) Negative Negative [facility] No Panel InformationOrdered By: Bronson Tolentino on 10-27-2024 NADINE [facility] Not entered [facility] 44 U/L High <38 [facility] Platelet countOrdered By: Debra Abdi on 10-27-2024 Platelets (Bld) [#/Vol] 245 10*3/uL 150-450 [facility] Potassium measurement (mass/ volume)Ordered By: Bronson Tolentino on 10-27-2024 Potassium (Unsp spec) [Mass/Vol] 4.2 mmol/L 3.3-5.1 [facility] Protein Test strip Ql (U)Ord ered By: Bronson Tolentino on 10-27-2024 Protein Ql (U) 30 mg/dl High Negative [facility] RBC Auto (Bld) [#/Vol]Ordere d By: Magaly Abdi on 10-27-2024 RBC (Bld) [#/Vol] 4.40 10*6/uL Low 4.6-6.2 [facility] Serum creatinine measurement (mass/volume)Ordered By: Bronson Tolentino on 10-27-2024 Creatinine [Mass/Vol] 0.99 mg/dL 0.70-1.20 [facility] Serum globulin measurementOr dered By: Bronson Tolentino on 10-27-2024 Globulin (S) [Mass/Vol] 3.1 g/dL 2.2-4.2 [facility] Serum glucose measurement (m ass/volume)Ordered By: Bronson Tolentino on 10-27-2024 Glucose [Mass/Vol] 203 mg/dL High 70-99 [facility] Serum or plasma alanine martino otransferase (ALT) measurementOrdered By: Bronson Tolentino on 10-27-2024 ALT [Catalytic activity/Vol] 23 U/L <47 [facility] Serum or plasma albumin brenda urement (mass/volume)Ordered By: Bronson Tolentino on 10-27-2024 Albumin [Mass/Vol] 3.5 g/dL 3.4-4.8 [facility] Serum or plasma alkaline yulia sphatase measurementOrdered By: Bronson Tolentino on 10-27-2024 ALP [Catalytic activity/Vol] 97 U/L 40-129 [facility] Serum or plasma calcium brenda urement (mass/volume)Ordered By: Bronson Tolentino on 10-27-2024 Calcium [Mass/Vol] 8.8 mg/dL 7.6-11.0 [facility] Serum or plasma urea nitroge n measurement (mass/volume)Ordered By: Bronson Tolentino on 10-27-2024 Urea nitrogen [Mass/Vol] 18 mg/dL 4-19 [facility] Sodium levelOrdered By: Roberto Tolentino on 10-27-2024 Sodium [Moles/Vol] 132 mmol/L Low 133-145 [facility] Squamous epithelial cells de tection in urine sediment by light microscopyOrdered By: Bronson Tolentino on 10-27-2024 Epithelial cells.squamous LM Ql (Urine sed) 0 SEEN /hpf 0-5 [facility] Total proteinOrdered By: Renato Tolentino on 10-27-2024 Protein [Mass/Vol] 6.6 g/dL 5.9-8.4 [facility] Urinalysis, Completeon 10-27 WBC 0-5 SEEN Normal 0-5 [facility] Comment on above: Order Comment: ARINA CTOR TO SPECIFY Performed By: #### L 400.0001 ####[facility] [address] [place], [place], [id number] BACTERIA 0 SEEN Normal None Seen [facility] Comment on above: Order Comment: ARINA CTOR TO SPECIFY Performed By: #### L 400.0001 ####[facility] [address] [place], [place], [id number] EPI,SQUAMOUS 0 SEEN Normal 0-5 [facility] Comment on above: Order Comment: ARINA CTOR TO SPECIFY Performed By: #### L 400.0001 ####[facility] [address] [place], [place], [address] Mucus Ql (Urine sed) 0 SEEN Normal [facility] Comment on above: Order Comment: ARINA CTOR TO SPECIFY Performed By: #### L 400.0001 ####[facility] [address] [place], [place], [address] RBC 0 SEEN Normal 0-5 [facility] Comment on above: Order Comment: ARINA CTOR TO SPECIFY Performed By: #### L 400.0001 ####[facility] [address] [place], [place], [id number] Urine clarityOrdered By: Renato Tolentino on 10-27-2024 Clarity (U) Clear Clear [facility] Urine color determinationOrd ered By: Bronson Tolentino on 10-27-2024 Color (U) Yellow Yellow [facility] Urine glucose detectionOrder ed By: Bronson Tolentino on 10-27-2024 Glucose Ql (U) 50 mg/dl High Normal [facility] Urine leukocyte esterase det ection by dipstickOrdered By: Bronson Tolentino on 10-27-2024 Leukocyte esterase Test strip Ql (U) 100 /ul High Negative [facility] Urine pHOrdered By: Bronson lopez on 10-27-2024 pH (U) 6.0 [pH] 5.0 - 8.0 [facility] Urine sediment bacteria coun t by microscopy (number/high power field)Ordered By: Bronson Tolentino on 10-27-2024 Bacteria LM.HPF (Urine sed) [#/Area] 0 /[HPF] None Seen [facility] Urine specific gravity measu rementOrdered By: Bronson Tolentino on 10-27-2024 Specific gravity (U) [Rel density] 1.020 1.002-1.030 [facility] Urine urobilinogen measureme ntOrdered By: Bronson Tolentino on 10-27-2024 Urobilinogen Ql (U) 1 mg/dl High Normal [facility] Venous Blood Gason Blood Gas Type NADINE Normal [facility] Comment on above: Performed By: #### L 9000.0810 ####[facility] [address] [place], [address] CO2 [Moles/Vol] 29 mmol/L Normal 23-33 [facility] Comment on above: Performed By: #### L 9000.0810 ####[facility] [address] [place], [address] HCO3 (Bld) [Moles/Vol] 28 mmol/L High 22-26 [facility] Comment on above: Performed By: #### L 9000.0810 ####[facility] [address] [place], [address] O2 Delivery Dev Not entered Normal [facility] Comment on above: Performed By: #### L 9000.0810 ####[facility] [address] [place], [address] SITE Not entered Normal [facility] Comment on above: Performed By: #### L 9000.0810 ####[facility] [address] [place], [address] VBG BE 3 mmol/L Normal -1.0-3.5 [facility] Comment on above: Performed By: #### L 9000.0810 ####[facility] [address] [place], [address] VBG pCO2 41.9 mmHg Normal 41-51 [facility] Comment on above: Performed By: #### L 9000.0810 ####[facility] [address] [place], [address] VBG pH 7.43 High 7.32-7.42 [facility] Comment on above: Performed By: #### L 9000.0810 ####[facility] [address] [place], [address] VBG PO2 30 mmHg Normal 25-40 [facility] Comment on above: Performed By: #### L 9000.0810 ####[facility] [address] [place], [address] VBG SO2 59 Normal 50-70 [facility] Comment on above: Performed By: #### L 9000.0810 ####[facility] [address] [place], [address] Blood Gas Type NADINE Normal [facility] Comment on above: Performed By: #### L 9000.0810 ####[facility] [address] [place], [address] CO2 [Moles/Vol] 22 mmol/L Low 23-33 [facility] Comment on above: Performed By: #### L 9000.0810 ####[facility] [address] [place], [address] HCO3 (Bld) [Moles/Vol] 21 mmol/L Low 22-26 [facility] Comment on above: Performed By: #### L 9000.0810 ####[facility] [address] [place], [address] O2 Delivery Dev Not entered [facility] Comment on above: Performed By: #### L 9000.0810 ####[facility] [address] [place], [address] SITE Not entered Normal [facility] Comment on above: Performed By: #### L 9000.0810 ####[facility] [address] [place], [address] VBG BE -1 mmol/L Normal -1.0-3.5 [facility] Comment on above: Performed By: #### L 9000.0810 ####[facility] [address] [place], [address] VBG pCO2 23.3 mmHg Low 41-51 [facility] Comment on above: Performed By: #### L 9000.0810 ####[facility] [address] [place], [place], [address] VBG pH 7.57 High 7.32-7.42 [facility] Comment on above: Performed By: #### L 9000.0810 ####[facility] [address] [place], [address] VBG PO2 224 mmHg High 25-40 [facility] Comment on above: Performed By: #### L 9000.0810 ####[facility] [address] [place], [address] VBG SO2 100 High 50-70 [facility] Comment on above: Performed By: #### L 9000.0810 ####[facility] [address] [place], [place], [address] Venous blood base excess asia surementOrdered By: Bronson Tolentino on 10-27-2024 Base excess Calc (BldV) [Moles/Vol] 3 mmol/L -1.0-3.5 [facility] Venous blood bicarbonate asia surementOrdered By: Bronosn Tolentino on 10-27-2024 HCO3 (Bld) [Moles/Vol] 28 mmol/L High 22-26 [facility] Venous blood pH measurementO rdered By: Bronson Tolentino on 10-27-2024 pH (BldV) 7.43 [pH] High 7.32-7.42 [facility] Venous blood partial pressur e of carbon dioxide measurementOrdered By: Bronson Tolentino on 10-27-2024 CO2 (BldV) [Partial pressure] 41.9 mm[Hg] 41-51 [facility] Venous blood partial pressur e of oxygen measurementOrdered By: Bronson Tolentino on 10-27-2024 Oxygen (BldV) [Partial pressure] 30 mm[Hg] 25-40 [facility] White blood cell (WBC) count Ordered By: Magaly Abdi on 10-27-2024 WBC (Bld) [#/Vol] 6.7 10*3/uL 4.4-11.0 [facility] White blood cell countOrdere d By: Bronson Tolentino on 10-27-2024 White blood cell count 0-5 SEEN /hpf 0-5 [facility] Bedside Glucoseon 10-26-2024 FINGERSTICK GLU 194 mg/dL High 74-106 [facility] Comment on above: Result Comment: SNEHA DUNCAN OF PATIENT CARE PER NURSING PROTOCOL Performed By: #### L 501.080 ####[facility] [address] [place], [address] Chest PA and Lateralon 10-26 Chest PA and Lateral Normal [facility] By: Bronson Tolentino on 10-26-2024 Glucose [Mass/Vol] 194 mg/dL High 74-106 [facility] Absolute lymphocyte countOrd ered By: Devin Curry on 10-23-2024 Lymphocytes Auto (Unsp spec) [#/Vol] 1.48 10*3/uL 0.83-4.51 [facility] Anion gap in Serum or Plasma Ordered By: Devin Curry on 10-23-2024 Anion gap [Moles/Vol] 12 mmol/L 5-15 [facility] Automated lymphocyte count a s percentage of total leukocytesOrdered By: Devin Curry on 10-23-2024 Lymphocytes/100 WBC Auto (Unsp spec) 21.6 % 19-41 [facility] BUN/creatinine ratioOrdered By: Devin Curry on 10-23-2024 Urea nitrogen/Creatinine [Mass ratio] 18.2 mg/mg 10- [facility] Basic Metabolic Profile (BMP )on 10-23-2024 BUN/CRE 18.2 RATIO Normal - [facility] Comment on above: Performed By: #### L 100.0100, L500.2500 ####[facility] [address] [place], [address] Calcium [Mass/Vol] 9.3 mg/dL Normal 7.6-11.0 [facility] Comment on above: Performed By: #### L 100.0100, L500.2500 ####[facility] [address] [place], [address] Chloride [Moles/Vol] 100 mmol/L Normal 98-108 [facility] Comment on above: Performed By: #### L 100.0100, L500.2500 ####[facility] [address] [place], [address] CO2 [Moles/Vol] 26.0 mmol/L Normal 21.0-32.0 [facility] Comment on above: Performed By: #### L 100.0100, L500.2500 ####[facility] [address] [place], [address] Creatinine [Mass/Vol] 1.00 mg/dL Normal 0.70-1.20 [facility] Comment on above: Performed By: #### L 100.0100, L500.2500 ####[facility] [address] [place], [address] ECRCL 89.11 ml/min Normal 50-250 [facility] Comment on above: Performed By: #### L 100.0100, L500.2500 ####[facility] [address] [place], [address] GAP 12 Normal 5-15 [facility] Comment on above: Performed By: #### L 100.0100, L500.2500 ####[facility] [address] [place], [address] GFR/1.73 sq M.predicted among non-blacks MDRD (S/P/Bld) [Vol rate/Area] 84 mL/min/{1.73_m2} Normal >60 [facility] Comment on above: Result Comment: mL/m in/1.73m2 CKD-EPI Creatinine Equation (2020) Performed By: #### L 100.0100, L500.2500 ####[facility] [address] [place], [address] Glucose [Mass/Vol] 256 mg/dL High 70-99 [facility] Comment on above: Performed By: #### L 100.0100, L500.2500 ####[facility] [address] [place], [address] Potassium [Moles/Vol] 3.9 mmol/L Normal 3.3-5.1 [facility] Comment on above: Performed By: #### L 100.0100, L500.2500 ####[facility] [address] [place], [address] Sodium [Moles/Vol] 138 mmol/L Normal 133-145 [facility] Comment on above: Performed By: #### L 100.0100, L500.2500 ####[facility] [address] [place], [address] Urea nitrogen [Mass/Vol] 18 mg/dL Normal 4-19 [facility] Comment on above: Performed By: #### L 100.0100, L500.2500 ####[facility] [address] [place], [address] Basophil percentageOrdered B y: Devin Curry on 10-23-2024 Basophils/100 WBC (Bld) 0.3 % 0-1 [facility] CBC W/Diff, Automatedon 10-05 Absolute Lymph 1.48 X10 3/uL Normal 0.83-4.51 [facility] Comment on above: Performed By: #### L 100.0100, L500.2500 ####[facility] [address] [place], [address] Absolute Neut 4.7 X10 3/uL Normal 2.0-7.7 [facility] Comment on above: Performed By: #### L 100.0100, L500.2500 ####[facility] [address] [place], [address] Basophils/100 WBC (Bld) 0.3 % Normal 0-1 [facility] Comment on above: Performed By: #### L 100.0100, L500.2500 ####[facility] [address] [place], [address] Eosinophils/100 WBC (Bld) 3.4 % Normal 0-5 [facility] Comment on above: Performed By: #### L 100.0100, L500.2500 ####[facility] [address] [place], [address] Erythrocyte distribution width (RBC) [Ratio] 12.8 % Normal 11.6-14.6 [facility] Comment on above: Performed By: #### L 100.0100, L500.2500 ####[facility] [address] [place], [address] Hematocrit (Bld) [Volume fraction] 42.4 % Normal 40-54 [facility] Comment on above: Performed By: #### L 100.0100, L500.2500 ####[facility] [address] [place], [address] Hemoglobin (Bld) [Mass/Vol] 14.0 g/dL Normal 13.0-16.5 [facility] Comment on above: Performed By: #### L 100.0100, L500.2500 ####[facility] [address] [place], [address] IG% 0.100 Normal 0.0-0.9 [facility] Comment on above: Result Comment: IG% - Immature Granulocytes (promyelocytes, myelocytes andmetamyelocytes) > 1% indicates that a LEFT SHIFT is Present. Performed By: #### L 100.0100, L500.2500 ####[facility] [address] [place], [address] Lymphocytes/100 WBC (Bld) 21.6 % Normal 19-41 [facility] Comment on above: Performed By: #### L 100.0100, L500.2500 ####[facility] [address] [place], [address] MCH (RBC) [Entitic mass] 30.8 pg Normal 27.0-32.0 [facility] Comment on above: Performed By: #### L 100.0100, L500.2500 ####[facility] [address] [place], [address] MCHC (RBC) [Mass/Vol] 33.0 g/dL Normal 32-36 [facility] Comment on above: Performed By: #### L 100.0100, L500.2500 ####[facility] [address] [place], [address] MCV (RBC) [Entitic vol] 93.2 fL Normal 80-94 [facility] Comment on above: Performed By: #### L 100.0100, L500.2500 ####[facility] [address] [place], [address] Monocytes/100 WBC (Bld) 6.1 % Normal 0-10 [facility] Comment on above: Performed By: #### L 100.0100, L500.2500 ####[facility] [address] [place], [address] Neutrophils/100 WBC (Bld) 68.5 % Normal 47-70 [facility] Comment on above: Performed By: #### L 100.0100, L500.2500 ####[facility] [address] [place], [address] Nucleated RBC (Bld) [#/Vol] 0 10*3/uL Normal 0-5 [facility] Comment on above: Performed By: #### L 100.0100, L500.2500 ####[facility] [address] [place], [address] Platelet mean volume (Bld) [Entitic vol] 10.0 fL Normal 6.2-12.0 [facility] Comment on above: Performed By: #### L 100.0100, L500.2500 ####[facility] [address] [place], [address] Platelets (Bld) [#/Vol] 255 10*3/uL Normal 150-450 [facility] Comment on above: Performed By: #### L 100.0100, L500.2500 ####[facility] [address] [place], [address] RBC (Bld) [#/Vol] 4.55 10*6/uL Low 4.6-6.2 [facility] Comment on above: Performed By: #### L 100.0100, L500.2500 ####[facility] [address] [place], [address] RDW SD 43.9 fl Normal 35.1-43.9 [facility] Comment on above: Performed By: #### L 100.0100, L500.2500 ####[facility] [address] [place], [address] WBC (Bld) [#/Vol] 6.9 10*3/uL Normal 4.4-11.0 [facility] Comment on above: Performed By: #### L 100.0100, L500.2500 ####[facility] [address] [place], [address] Carbon dioxide, total [Moles /volume] in Central venous bloodOrdered By: Devin Curry on 10-23-2024 CO2 [Moles/Vol] 26.0 mmol/L 21.0-32.0 [facility] Chloride assayOrdered By: Davian Curry on 10-23-2024 Chloride [Moles/Vol] 100 mmol/L 98-108 [facility] Emergency Department Summary on 10-23-2024 Emergency Department Summary Normal [facility] Eosinophil percentageOrdered By: Devin Curry on 10-23-2024 Eosinophils/100 WBC (Bld) 3.4 % 0-5 [facility] Erythrocyte distribution wid th ratioOrdered By: Devin Curry on 10-23-2024 Erythrocyte distribution width (RBC) [Ratio] 12.8 % 11.6-14.6 [facility] Erythrocyte distribution wid th standard deviationOrdered By: Devin Curry on 10-23-2024 Erythrocyte distribution width (RBC) [Ratio] 43.9 fl 35.1-43.9 [facility] Glomerular filtration rate ( GFR) estimation/1.73 sq m using serum, plasma, or whole bOrdered By: Devin Curry on 10-23-2024 GFR/1.73 sq M.predicted among non-blacks MDRD (S/P/Bld) [Vol rate/Area] 84 mL/min/{1.73_m2} >60 [facility] Hematocrit Auto (Bld) [Volum e fraction]Ordered By: Devin Curry on 10-23-2024 Hematocrit (Bld) [Volume fraction] 42.4 % 40-54 [facility] Hemoglobin measurementOrdere d By: Devin Curry on 10-23-2024 Hemoglobin (Bld) [Mass/Vol] 14.0 g/dL 13.0-16.5 [facility] Immature granulocytes/100 WB C Auto (Bld)Ordered By: Devin Curry on 10-23-2024 Immature granulocytes/100 WBC (Bld) 0.100 % 0.0-0.9 [facility] MCV (mean corpuscular volume ) determinationOrdered By: Devin Curry on 10-23-2024 MCV (RBC) [Entitic vol] 93.2 fL 80-94 [facility] Mean corpuscular hemoglobin (MCH) determinationOrdered By: Devin Curry on 10-23-2024 MCH (RBC) [Entitic mass] 30.8 pg 27.0-32.0 [facility] Monocyte percentageOrdered B y: Devin Curry on 10-23-2024 Monocytes/100 WBC (Bld) 6.1 % 0-10 [facility] Neutrophil percentageOrdered By: Devin Curry on 10-23-2024 Neutrophils/100 WBC (Bld) 68.5 % 47-70 [facility] Platelet countOrdered By: Davian Curry on 10-23-2024 Platelets (Bld) [#/Vol] 255 10*3/uL 150-450 [facility] Potassium measurement (mass/ volume)Ordered By: Devin Curry on 10-23-2024 Potassium (Unsp spec) [Mass/Vol] 3.9 mmol/L 3.3-5.1 [facility] RBC Auto (Bld) [#/Vol]Ordere d By: Devin Curry on 10-23-2024 RBC (Bld) [#/Vol] 4.55 10*6/uL Low 4.6-6.2 [facility] Serum creatinine measurement (mass/volume)Ordered By: Devin Curry on 10-23-2024 Creatinine [Mass/Vol] 1.00 mg/dL 0.70-1.20 [facility] Serum glucose measurement (m ass/volume)Ordered By: Devin Curry on 10-23-2024 Glucose [Mass/Vol] 256 mg/dL High 70-99 [facility] Serum or plasma calcium brenda urement (mass/volume)Ordered By: Devin Curry on 10-23-2024 Calcium [Mass/Vol] 9.3 mg/dL 7.6-11.0 [facility] Serum or plasma urea nitroge n measurement (mass/volume)Ordered By: Devin Curry on 10-23-2024 Urea nitrogen [Mass/Vol] 18 mg/dL 4-19 [facility] Sodium levelOrdered By: Devin Curry on 10-23-2024 Sodium [Moles/Vol] 138 mmol/L 133-145 [facility] White blood cell (WBC) count Ordered By: Devin Curry on 10-23-2024 WBC (Bld) [#/Vol] 6.9 10*3/uL 4.4-11.0 [facility] Emergency Department Summary on 10-21-2024 Emergency Department Summary Normal [facility] Absolute lymphocyte countOrd ered By: Valentín Miller on 10-19-2024 Lymphocytes Auto (Unsp spec) [#/Vol] 1.65 10*3/uL 0.83-4.51 [facility] Anion gap in Serum or Plasma Ordered By: Valentín Miller on 10-19-2024 Anion gap [Moles/Vol] 13 mmol/L 5-15 [facility] Automated lymphocyte count a s percentage of total leukocytesOrdered By: Valentín Miller on 10-19-2024 Lymphocytes/100 WBC Auto (Unsp spec) 24.7 % - [facility] BUN/creatinine ratioOrdered By: Valentín Miller on 10-19-2024 Urea nitrogen/Creatinine [Mass ratio] 16.0 mg/mg 10- [facility] Basic Metabolic Profile (BMP )on 10-19-2024 BUN/CRE 16.0 RATIO Normal - [facility] Comment on above: Performed By: #### L 503.7505, L501.4021, L100.0100, L500.2500 ####[facility] [address] [place], [address] Calcium [Mass/Vol] 9.2 mg/dL Normal 7.6-11.0 [facility] Comment on above: Performed By: #### L 503.7505, L501.4021, L100.0100, L500.2500 ####[facility] [address] [place], [address] Chloride [Moles/Vol] 98 mmol/L Normal 98-108 [facility] Comment on above: Performed By: #### L 503.7505, L501.4021, L100.0100, L500.2500 ####[facility] [address] [place], [address] CO2 [Moles/Vol] 22.6 mmol/L Normal 21.0-32.0 [facility] Comment on above: Performed By: #### L 503.7505, L501.4021, L100.0100, L500.2500 ####[facility] [address] [place], [address] Creatinine [Mass/Vol] 1.19 mg/dL Normal 0.70-1.20 [facility] Comment on above: Performed By: #### L 503.7505, L501.4021, L100.0100, L500.2500 ####[facility] [address] [place], [address] ECRCL 66.79 ml/min Normal 50-250 [facility] Comment on above: Performed By: #### L 503.7505, L501.4021, L100.0100, L500.2500 ####[facility] [address] [place], [address] GAP 13 Normal 5-15 [facility] Comment on above: Performed By: #### L 503.7505, L501.4021, L100.0100, L500.2500 ####[facility] [address] [place], [address] GFR/1.73 sq M.predicted among non-blacks MDRD (S/P/Bld) [Vol rate/Area] 68 mL/min/{1.73_m2} Normal >60 [facility] Comment on above: Result Comment: mL/m in/1.73m2 CKD-EPI Creatinine Equation (2020) Performed By: #### L 503.7505, L501.4021, L100.0100, L500.2500 ####[facility] [address] [place], [address] Glucose [Mass/Vol] 343 mg/dL High 70-99 [facility] Comment on above: Performed By: #### L 503.7505, L501.4021, L100.0100, L500.2500 ####[facility] [address] [place], [address] Potassium [Moles/Vol] 5.5 mmol/L High 3.3-5.1 [facility] Comment on above: Result Comment: Hemo lysis present, Results??could be affected.??Hemolysis present, Results??could be affected.?? Performed By: #### L 503.7505, L501.4021, L100.0100, L500.2500 ####[facility] [address] [place], [address] Sodium [Moles/Vol] 133 mmol/L Normal 133-145 [facility] Comment on above: Performed By: #### L 503.7505, L501.4021, L100.0100, L500.2500 ####[facility] [address] [place], [address] Urea nitrogen [Mass/Vol] 19 mg/dL Normal 4-19 [facility] Comment on above: Performed By: #### L 503.7505, L501.4021, L100.0100, L500.2500 ####[facility] [address] [place], [address] Basophil percentageOrdered B y: Valentín Paul on 10-19-2024 Basophils/100 WBC (Bld) 0.3 % 0-1 [facility] CBC W/Diff, Automatedon 10-04 Absolute Lymph 1.65 X10 3/uL Normal 0.83-4.51 [facility] Comment on above: Performed By: #### L 503.7505, L501.4021, L100.0100, L500.2500 ####[facility] [address] [place], [address] Absolute Neut 4.4 X10 3/uL Normal 2.0-7.7 [facility] Comment on above: Performed By: #### L 503.7505, L501.4021, L100.0100, L500.2500 ####[facility] [address] [place], [address] Basophils/100 WBC (Bld) 0.3 % Normal 0-1 [facility] Comment on above: Performed By: #### L 503.7505, L501.4021, L100.0100, L500.2500 ####[facility] [address] [place], [address] Eosinophils/100 WBC (Bld) 3.1 % Normal 0-5 [facility] Comment on above: Performed By: #### L 503.7505, L501.4021, L100.0100, L500.2500 ####[facility] [address] [place], [address] Erythrocyte distribution width (RBC) [Ratio] 12.6 % Normal 11.6-14.6 [facility] Comment on above: Performed By: #### L 503.7505, L501.4021, L100.0100, L500.2500 ####[facility] [address] [place], [address] Hematocrit (Bld) [Volume fraction] 40.7 % Normal 40-54 [facility] Comment on above: Performed By: #### L 503.7505, L501.4021, L100.0100, L500.2500 ####[facility] [address] [place], [address] Hemoglobin (Bld) [Mass/Vol] 13.7 g/dL Normal 13.0-16.5 [facility] Comment on above: Performed By: #### L 503.7505, L501.4021, L100.0100, L500.2500 ####[facility] [address] [place], [address] IG% 0.100 Normal 0.0-0.9 [facility] Comment on above: Result Comment: IG% - Immature Granulocytes (promyelocytes, myelocytes andmetamyelocytes) > 1% indicates that a LEFT SHIFT is Present. Performed By: #### L 503.7505, L501.4021, L100.0100, L500.2500 ####[facility] [address] [place], [address] Lymphocytes/100 WBC (Bld) 24.7 % Normal 19-41 [facility] Comment on above: Performed By: #### L 503.7505, L501.4021, L100.0100, L500.2500 ####[facility] [address] [place], [address] MCH (RBC) [Entitic mass] 31.2 pg Normal 27.0-32.0 [facility] Comment on above: Performed By: #### L 503.7505, L501.4021, L100.0100, L500.2500 ####[facility] [address] [place], [address] MCHC (RBC) [Mass/Vol] 33.7 g/dL Normal 32-36 [facility] Comment on above: Performed By: #### L 503.7505, L501.4021, L100.0100, L500.2500 ####[facility] [address] [place], [address] MCV (RBC) [Entitic vol] 92.7 fL Normal 80-94 [facility] Comment on above: Performed By: #### L 503.7505, L501.4021, L100.0100, L500.2500 ####[facility] [address] [place], [address] Monocytes/100 WBC (Bld) 6.1 % Normal 0-10 [facility] Comment on above: Performed By: #### L 503.7505, L501.4021, L100.0100, L500.2500 ####[facility] [address] [place], [address] Neutrophils/100 WBC (Bld) 65.7 % Normal 47-70 [facility] Comment on above: Performed By: #### L 503.7505, L501.4021, L100.0100, L500.2500 ####[facility] [address] [place], [address] Nucleated RBC (Bld) [#/Vol] 0 10*3/uL Normal 0-5 [facility] Comment on above: Performed By: #### L 503.7505, L501.4021, L100.0100, L500.2500 ####[facility] [address] [place], [address] Platelet mean volume (Bld) [Entitic vol] 10.0 fL Normal 6.2-12.0 [facility] Comment on above: Performed By: #### L 503.7505, L501.4021, L100.0100, L500.2500 ####[facility] [address] [place], [address] Platelets (Bld) [#/Vol] 241 10*3/uL Normal 150-450 [facility] Comment on above: Performed By: #### L 503.7505, L501.4021, L100.0100, L500.2500 ####[facility] [address] [place], [address] RBC (Bld) [#/Vol] 4.39 10*6/uL Low 4.6-6.2 [facility] Comment on above: Performed By: #### L 503.7505, L501.4021, L100.0100, L500.2500 ####[facility] [address] [place], [address] RDW SD 43.1 fl Normal 35.1-43.9 [facility] Comment on above: Performed By: #### L 503.7505, L501.4021, L100.0100, L500.2500 ####[facility] [address] [place], [address] WBC (Bld) [#/Vol] 6.7 10*3/uL Normal 4.4-11.0 [facility] Comment on above: Performed By: #### L 503.7505, L501.4021, L100.0100, L500.2500 ####[facility] [address] [place], [address] Carbon dioxide, total [Moles /volume] in Central venous bloodOrdered By: Valentín Miller on 10-19-2024 CO2 [Moles/Vol] 22.6 mmol/L 21.0-32.0 [facility] Chest 1 View (Portable)on Chest 1 View (Portable) Normal [facility] Chloride assayOrdered By: wil Miller on 10-19-2024 Chloride [Moles/Vol] 98 mmol/L 98-108 [facility] Emergency Department Summary on 10-19-2024 Emergency Department Summary Normal [facility] Eosinophil percentageOrdered By: Valentín Miller on 10-19-2024 Eosinophils/100 WBC (Bld) 3.1 % 0-5 [facility] Erythrocyte distribution wid th ratioOrdered By: Valentín Miller on 10-19-2024 Erythrocyte distribution width (RBC) [Ratio] 12.6 % 11.6-14.6 [facility] Erythrocyte distribution wid th standard deviationOrdered By: Valentín Miller on 10-19-2024 Erythrocyte distribution width (RBC) [Ratio] 43.1 fl 35.1-43.9 [facility] Glomerular filtration rate ( GFR) estimation/1.73 sq m using serum, plasma, or whole bOrdered By: Valentín Miller on 10-19-2024 GFR/1.73 sq M.predicted among non-blacks MDRD (S/P/Bld) [Vol rate/Area] 68 mL/min/{1.73_m2} >60 [facility] Hematocrit Auto (Bld) [Volum e fraction]Ordered By: Valentín Miller on 10-19-2024 Hematocrit (Bld) [Volume fraction] 40.7 % 40-54 [facility] Hemoglobin measurementOrdere d By: Valentín Miller on 10-19-2024 Hemoglobin (Bld) [Mass/Vol] 13.7 g/dL 13.0-16.5 [facility] Immature granulocytes/100 WB C Auto (Bld)Ordered By: Valentín Miller on 10-19-2024 Immature granulocytes/100 WBC (Bld) 0.100 % 0.0-0.9 [facility] Influenza virus A and B and SARS-CoV-2 (COVID-19) and Respiratory syncytial virus RNAOrdered By: Valentín Miller on 10-19-2024 SARS-CoV-2 (COVID-19) RNA HAYDER+probe Ql (Unsp spec) [facility] L499.0042on 10-19-2024 Trop T High Sen 27 ng/L High <=22 [facility] Comment on above: Performed By: #### L 499.0042 ####[facility] [address] [place], [address] L499.0043on 10-19-2024 Trop T High Sen 26 ng/L High <=22 [facility] Comment on above: Performed By: #### L 499.0043 ####[facility] [address] [place], [address] L501.4021on 10-19-2024 Trop T High Sen 25 ng/L High <=22 [facility] Comment on above: Result Comment: Hemo lysis present, Results??could be affected.??Hemolysis present, Results??could be affected.?? Performed By: #### L 503.7505, L501.4021, L100.0100, L500.2500 ####[facility] [address] [place], [address] L503.7505on 10-19-2024 Natriuretic peptide B (Bld) [Mass/Vol] 4100 pg/mL High <=900 [facility] Comment on above: Result Comment: Hear t Failure Unlikely: < 300 pg/mLHeart Failure Likely< 50 Years: > 450 pg/mL50-75 Years: > 900 pg/mL>75 Years: > 1800 pg/mL Performed By: #### L 503.7505, L501.4021, L100.0100, L500.2500 ####[facility] [address] [place], [address] M100.678on 10-19-2024 M100.678 Pending SARS-CoV-2 (COVID 19) Negative INFLUENZA A Negative INFLUENZA B Negative RSV PCR Negative Normal [facility] Comment on above: Performed By: #### M 100670 ####[facility] [address] [place], [address] MCV (mean corpuscular volume ) determinationOrdered By: Valentín Miller on 10-19-2024 MCV (RBC) [Entitic vol] 92.7 fL 80-94 [facility] Mean corpuscular hemoglobin (MCH) determinationOrdered By: Valentín Miller on 10-19-2024 MCH (RBC) [Entitic mass] 31.2 pg 27.0-32.0 [facility] Monocyte percentageOrdered B y: Valentín Miller on 10-19-2024 Monocytes/100 WBC (Bld) 6.1 % 0-10 [facility] Natriuretic peptide.B prohor parris N-Terminal [Mass/volume] in Serum or PlasmaOrdered By: Valentín Miller on 10-19-2024 Natriuretic peptide.B prohormone N-Terminal [Mass/Vol] 4100 pg/mL High <900 [facility] Neutrophil percentageOrdered By: Valentín Miller on 10-19-2024 Neutrophils/100 WBC (Bld) 65.7 % 47-70 [facility] Platelet countOrdered By: Ana Miller on 10-19-2024 Platelets (Bld) [#/Vol] 241 10*3/uL 150-450 [facility] Potassium measurement (mass/ volume)Ordered By: Valentín Miller on 10-19-2024 Potassium (Unsp spec) [Mass/Vol] 5.5 mmol/L High 3.3-5.1 [facility] RBC Auto (Bld) [#/Vol]Ordere d By: Valentín Miller on 10-19-2024 RBC (Bld) [#/Vol] 4.39 10*6/uL Low 4.6-6.2 [facility] Serum creatinine measurement (mass/volume)Ordered By: Valentín Miller on 10-19-2024 Creatinine [Mass/Vol] 1.19 mg/dL 0.70-1.20 [facility] Serum glucose measurement (m ass/volume)Ordered By: Valentín Miller on 10-19-2024 Glucose [Mass/Vol] 343 mg/dL High 70-99 [facility] Serum or plasma calcium brenda urement (mass/volume)Ordered By: Valentín Miller on 10-19-2024 Calcium [Mass/Vol] 9.2 mg/dL 7.6-11.0 [facility] Serum or plasma urea nitroge n measurement (mass/volume)Ordered By: Valentín Miller on 10-19-2024 Urea nitrogen [Mass/Vol] 19 mg/dL 4-19 [facility] Sodium levelOrdered By: Uli Miller on 10-19-2024 Sodium [Moles/Vol] 133 mmol/L 133-145 [facility] Troponin T.cardiac [Mass/vol ume] in Serum or Plasma by High sensitivity methodOrdered By: Valentín Miller on 10-19-2024 Troponin T.cardiac High sensitivity method [Mass/Vol] 26 ng/L High <22 [facility] Troponin T.cardiac High sensitivity method [Mass/Vol] 27 ng/L High <22 [facility] Troponin T.cardiac High sensitivity method [Mass/Vol] 25 ng/L High <22 [facility] White blood cell (WBC) count Ordered By: Valentín Miller on 10-19-2024 WBC (Bld) [#/Vol] 6.7 10*3/uL 4.4-11.0 [facility] Cardiology Visit Reporton Cardiology Visit Report Normal [facility] Bedside Glucoseon 09-21-2024 FINGERSTICK GLU 223 mg/dL High 74-106 [facility] Comment on above: Result Comment: SNEHA GEMENT OF PATIENT CARE PER NURSING PROTOCOL Performed By: #### L 501.080 ####[facility] [address] [place], [address] FINGERSTICK GLU 197 mg/dL High 74-106 [facility] Comment on above: Result Comment: SNEHA GEMENT OF PATIENT CARE PER NURSING PROTOCOL Performed By: #### L 501.080 ####[facility] [address] [place], [place], [id number] FINGERSTICK GLU 163 mg/dL High 74-106 [facility] Comment on above: Result Comment: SNEHA DUNCAN OF PATIENT CARE PER NURSING PROTOCOL Performed By: #### L 501.080 ####[facility] [address] [place], [place], [address] Calculated very low density lipoprotein (VLDL) cholesterol measurementOrdered By: Seth Carrington on 09-21-2024 Calculated very low density lipoprotein (VLDL) cholesterol measurement 31 mg/dL 5-40 [facility] Discharge Instructionon 09-04 Discharge Instruction Normal [facility] Gl[facility] at [facility] deOrdered By: Donna Wolff on 09-21-2024 Glucose [Mass/Vol] 223 mg/dL High 74-106 [facility] LDL calc ser/plasOrdered By: Seth Carrington on 09-21-2024 Cholesterol in LDL [Mass/Vol] 18 mg/dL [facility] Lipid Profileon 09-21-2024 CHOL:HDL 2.11 Normal [facility] Comment on above: Performed By: #### L 500.4100 ####[facility] [address] [place], [place], [id number] Cholesterol [Mass/Vol] 93 mg/dL Normal <=200 [facility] Comment on above: Result Comment: Chol esterol level, Desirable <200 mg/dLBorderline high cholesterol 200-239 mg/dLHigh cholesterol >=240 mg/dLRecommendations of the NCEP Adult Treatment Panel for thefollowing risk-cutoff thresholds for the [place] Americanpulation. Performed By: #### L 500.4100 ####[facility] [address] [place], [place], [id number] Cholesterol in HDL [Mass/Vol] 44 mg/dL Normal [facility] Comment on above: Result Comment: Audrey onal Cholesterol Education Program (NCEP) guidelines:<40 mg/dL: Low HDL-cholesterol (major risk factor for CHD)>= 60 mg/dL: High HDL-cholesterol (negative risk factor forCHD)HDL-cholesterol is affected by a number of factors, e.g.smoking, exercise, hormones, sex and age. Performed By: #### L 500.4100 ####[facility] [address] [place], [address] Cholesterol in LDL [Mass/Vol] 18 mg/dL Normal [facility] Comment on above: Result Comment: Bord htcqvr=785-040 mg/dL Higher Zdni=544 mg/dL or greater Performed By: #### L 500.4100 ####[facility] [address] [place], [address] Cholesterol in VLDL [Mass/Vol] 31 mg/dL Normal 5-40 [facility] Comment on above: Performed By: #### L 500.4100 ####[facility] [address] [place], [address] Triglyceride [Mass/Vol] 155 mg/dL Normal [facility] Comment on above: Result Comment: The drugs N-Acetylcysteine and Metamizole may falselydepress this assay.Normal range: <150 mg/dLBorderline High: 150-199 mg/dLHigh: 200-499 mg/dLVery High: >500 mg/dL Performed By: #### L 500.4100 ####[facility] [address] [place], [place], [id number]) Serum or plasma cholesterol in HDL measurement (mass/volume)Ordered By: Seth Carrington on 09-21-2024 Cholesterol in HDL [Mass/Vol] 44 mg/dL >40 [facility] Serum or plasma cholesterol measurement (mass/volume)Ordered By: Seth Carrington on 09-21-2024 Cholesterol [Mass/Vol] 93 mg/dL <201 [facility] Anion gap in Serum or Plasma Ordered By: Seth Carrington on 09-20-2024 Anion gap [Moles/Vol] 11 mmol/L 5-15 [facility] BUN/creatinine ratioOrdered By: Seth Carrington on 09-20-2024 Urea nitrogen/Creatinine [Mass ratio] 17.8 mg/mg 10-20 [facility] Basic Metabolic Profile (BMP )on 09-20-2024 BUN/CRE 17.8 RATIO Normal -20 [facility] Comment on above: Performed By: #### L 500.2500 ####[facility] [address] [place], [address] Calcium [Mass/Vol] 9.4 mg/dL Normal 7.6-11.0 [facility] Comment on above: Performed By: #### L 500.2500 ####[facility] [address] [place], [address] Chloride [Moles/Vol] 100 mmol/L Normal 98-108 [facility] Comment on above: Performed By: #### L 500.2500 ####[facility] [address] [place], [address] CO2 [Moles/Vol] 25.3 mmol/L Normal 21.0-32.0 [facility] Comment on above: Performed By: #### L 500.2500 ####[facility] [address] [place], [address] Creatinine [Mass/Vol] 1.11 mg/dL Normal 0.70-1.20 [facility] Comment on above: Performed By: #### L 500.2500 ####[facility] [address] [place], [address] ECRCL 71.61 ml/min Normal 50-250 [facility] Comment on above: Performed By: #### L 500.2500 ####[facility] [address] [place], [address] GAP 11 Normal 5-15 [facility] Comment on above: Performed By: #### L 500.2500 ####[facility] [address] [place], [address] GFR/1.73 sq M.predicted among non-blacks MDRD (S/P/Bld) [Vol rate/Area] 74 mL/min/{1.73_m2} Normal >60 [facility] Comment on above: Result Comment: mL/m in/1.73m2 CKD-EPI Creatinine Equation (2020) Performed By: #### L 500.2500 ####[facility] [address] [place], [address] Glucose [Mass/Vol] 148 mg/dL High 70-99 [facility] Comment on above: Performed By: #### L 500.2500 ####[facility] [address] [place], [address] Potassium [Moles/Vol] 4.0 mmol/L Normal 3.3-5.1 [facility] Comment on above: Performed By: #### L 500.2500 ####[facility] [address] [place], [address] Sodium [Moles/Vol] 136 mmol/L Normal 133-145 [facility] Comment on above: Performed By: #### L 500.2500 ####[facility] [address] [place], [address] Urea nitrogen [Mass/Vol] 20 mg/dL High 4-19 [facility] Comment on above: Performed By: #### L 500.2500 ####[facility] [address] [place], [address] Bedside Glucoseon 09-20-2024 FINGERSTICK GLU 152 mg/dL High 74-106 [facility] Comment on above: Result Comment: SNEHA GEMENT OF PATIENT CARE PER NURSING PROTOCOL Performed By: #### L 501.080 ####[facility] [address] [place], [address] FINGERSTICK GLU 190 mg/dL High 74-106 [facility] Comment on above: Result Comment: SNEHA GEMENT OF PATIENT CARE PER NURSING PROTOCOL Performed By: #### L 501.080 ####[facility] [address] [place], [address] FINGERSTICK GLU 246 mg/dL High 74-106 [facility] Comment on above: Result Comment: SNEHA GEMENT OF PATIENT CARE PER NURSING PROTOCOL Performed By: #### L 501.080 ####[facility] [address] [place], [address] FINGERSTICK GLU 154 mg/dL High 74-106 [facility] Comment on above: Result Comment: SNEHA GEMENT OF PATIENT CARE PER NURSING PROTOCOL Performed By: #### L 501.080 ####[facility] [address] [place], [address] Carbon dioxide, total [Moles /volume] in Central venous bloodOrdered By: Seth Carrington on 09-20-2024 CO2 [Moles/Vol] 25.3 mmol/L 21.0-32.0 [facility] Chloride assayOrdered By: Carol Carrington on 09-20-2024 Chloride [Moles/Vol] 100 mmol/L 98-108 [facility] Electrocardiogram reportOrde red By: Calos Quinn on 09-20-2024 EKG study [facility] Work Phone: Glomerular filtration rate ( GFR) estimation/1.73 sq m using serum, plasma, or whole bOrdered By: Seth Carrington on 09-20-2024 GFR/1.73 sq M.predicted among non-blacks MDRD (S/P/Bld) [Vol rate/Area] 74 mL/min/{1.73_m2} >60 [facility] Potassium measurement (mass/ volume)Ordered By: Seth Carrington on 09-20-2024 Potassium (Unsp spec) [Mass/Vol] 4.0 mmol/L 3.3-5.1 [facility] Serum creatinine measurement (mass/volume)Ordered By: Seth Carrington on 09-20-2024 Creatinine [Mass/Vol] 1.11 mg/dL 0.70-1.20 [facility] Serum glucose measurement (m ass/volume)Ordered By: Seth Carrington on 09-20-2024 Glucose [Mass/Vol] 148 mg/dL High 70-99 [facility] Serum or plasma calcium brenda urement (mass/volume)Ordered By: Seth Carrington on 09-20-2024 Calcium [Mass/Vol] 9.4 mg/dL 7.6-11.0 [facility] Serum or plasma urea nitroge n measurement (mass/volume)Ordered By: Seth Carrington on 09-20-2024 Urea nitrogen [Mass/Vol] 20 mg/dL High 4-19 [facility] Sodium levelOrdered By: Seth Carrington on 09-20-2024 Sodium [Moles/Vol] 136 mmol/L 133-145 [facility] Basic Metabolic Profile (BMP )on 09-19-2024 BUN/CRE 18.5 RATIO Normal 10-20 [facility] Comment on above: Performed By: #### L 500.2500, L100.0500 ####[facility] [address] [place], [address] Calcium [Mass/Vol] 9.4 mg/dL Normal 7.6-11.0 [facility] Comment on above: Performed By: #### L 500.2500, L100.0500 ####[facility] [address] [place], [address] Chloride [Moles/Vol] 99 mmol/L Normal 98-108 [facility] Comment on above: Performed By: #### L 500.2500, L100.0500 ####[facility] [address] [place], [address] CO2 [Moles/Vol] 24.3 mmol/L Normal 21.0-32.0 [facility] Comment on above: Performed By: #### L 500.2500, L100.0500 ####[facility] [address] [place], [address] Creatinine [Mass/Vol] 1.13 mg/dL Normal 0.70-1.20 [facility] Comment on above: Performed By: #### L 500.2500, L100.0500 ####[facility] [address] [place], [address] ECRCL 70.34 ml/min Normal 50-250 [facility] Comment on above: Performed By: #### L 500.2500, L100.0500 ####[facility] [address] [place], [address] GAP 13 Normal 5-15 [facility] Comment on above: Performed By: #### L 500.2500, L100.0500 ####[facility] [address] [place], [address] GFR/1.73 sq M.predicted among non-blacks MDRD (S/P/Bld) [Vol rate/Area] 73 mL/min/{1.73_m2} Normal >60 [facility] Comment on above: Result Comment: mL/m in/1.73m2 CKD-EPI Creatinine Equation (2020) Performed By: #### L 500.2500, L100.0500 ####[facility] [address] [place], [address] Glucose [Mass/Vol] 187 mg/dL High 70-99 [facility] Comment on above: Performed By: #### L 500.2500, L100.0500 ####[facility] [address] [place], [address] Potassium [Moles/Vol] 3.7 mmol/L Normal 3.3-5.1 [facility] Comment on above: Performed By: #### L 500.2500, L100.0500 ####[facility] [address] [place], [address] Sodium [Moles/Vol] 136 mmol/L Normal 133-145 [facility] Comment on above: Performed By: #### L 500.2500, L100.0500 ####[facility] [address] [place], [address] Urea nitrogen [Mass/Vol] 21 mg/dL High 4-19 [facility] Comment on above: Performed By: #### L 500.2500, L100.0500 ####[facility] [address] [place], [address] Bedside Glucoseon 09-19-2024 FINGERSTICK GLU 198 mg/dL High 74-106 [facility] Comment on above: Result Comment: SNEHA GEMENT OF PATIENT CARE PER NURSING PROTOCOL Performed By: #### L 501.080 ####[facility] [address] [place], [address] FINGERSTICK GLU 170 mg/dL High 74-106 [facility] Comment on above: Result Comment: SNEHA GEMENT OF PATIENT CARE PER NURSING PROTOCOL Performed By: #### L 501.080 ####[facility] [address] [place], [address] FINGERSTICK GLU 193 mg/dL High 74-106 [facility] Comment on above: Result Comment: SNEHA GEMENT OF PATIENT CARE PER NURSING PROTOCOL Performed By: #### L 501.080 ####[facility] [address] [place], [address] FINGERSTICK GLU 163 mg/dL High 74-106 [facility] Comment on above: Result Comment: SNEHA GEMENT OF PATIENT CARE PER NURSING PROTOCOL Performed By: #### L 501.080 ####[facility] [address] [place], [address] CBC-Complete Blood Cnt No Di ffon 09-19-2024 Erythrocyte distribution width (RBC) [Ratio] 12.5 % Normal 11.6-14.6 [facility] Comment on above: Performed By: #### L 500.2500, L100.0500 ####[facility] [address] [place], [address] Hematocrit (Bld) [Volume fraction] 44.2 % Normal 40-54 [facility] Comment on above: Performed By: #### L 500.2500, L100.0500 ####[facility] [address] [place], [address] Hemoglobin (Bld) [Mass/Vol] 14.8 g/dL Normal 13.0-16.5 [facility] Comment on above: Performed By: #### L 500.2500, L100.0500 ####[facility] [address] [place], [address] MCH (RBC) [Entitic mass] 31.1 pg Normal 27.0-32.0 [facility] Comment on above: Performed By: #### L 500.2500, L100.0500 ####[facility] [address] [place], [address] MCHC (RBC) [Mass/Vol] 33.5 g/dL Normal 32-36 [facility] Comment on above: Performed By: #### L 500.2500, L100.0500 ####[facility] [address] [place], [address] MCV (RBC) [Entitic vol] 92.9 fL Normal 80-94 [facility] Comment on above: Performed By: #### L 500.2500, L100.0500 ####[facility] [address] [place], [address] Platelet mean volume (Bld) [Entitic vol] 9.5 fL Normal 6.2-12.0 [facility] Comment on above: Performed By: #### L 500.2500, L100.0500 ####[facility] [address] [place], [address] Platelets (Bld) [#/Vol] 297 10*3/uL Normal 150-450 [facility] Comment on above: Performed By: #### L 500.2500, L100.0500 ####[facility] [address] [place], [address] RBC (Bld) [#/Vol] 4.76 10*6/uL Normal 4.6-6.2 [facility] Comment on above: Performed By: #### L 500.2500, L100.0500 ####[facility] [address] [place], [address] RDW SD 43.1 fl Normal 35.1-43.9 [facility] [facility] Comment on above: Performed By: #### L 500.2500, L100.0500 ####[facility] [address] [place], [address] WBC (Bld) [#/Vol] 7.7 10*3/uL Normal 4.4-11.0 [facility] Comment on above: Performed By: #### L 500.2500, L100.0500 ####[facility] [address] [place], [address] Erythrocyte distribution wid th ratioOrdered By: Clinton Soares on 09-19-2024 Erythrocyte distribution width (RBC) [Ratio] 12.5 % 11.6-14.6 [facility] Erythrocyte distribution wid th standard deviationOrdered By: Clinton Soares on 09-19-2024 Erythrocyte distribution width (RBC) [Ratio] 43.1 fl 35.1-43.9 [facility] Hematocrit Auto (Bld) [Volum e fraction]Ordered By: Clinton Soares on 09-19-2024 Hematocrit (Bld) [Volume fraction] 44.2 % 40-54 [facility] Hemoglobin measurementOrdere d By: Clinton Soares on 09-19-2024 Hemoglobin (Bld) [Mass/Vol] 14.8 g/dL 13.0-16.5 [facility] Limited echocardiogram repor tOrdered By: Calos Quinn on 09-19-2024 Study report [facility] Work Phone: MCV (mean corpuscular volume ) determinationOrdered By: Clinton Soares on 09-19-2024 MCV (RBC) [Entitic vol] 92.9 fL 80-94 [facility] Mean corpuscular hemoglobin (MCH) determinationOrdered By: Clinton Soares on 09-19-2024 MCH (RBC) [Entitic mass] 31.1 pg 27.0-32.0 [facility] Platelet countOrdered By: Buzz Soares on 09-19-2024 Platelets (Bld) [#/Vol] 297 10*3/uL 150-450 [facility] RBC Auto (Bld) [#/Vol]Ordere d By: Clinton Soares on 09-19-2024 RBC (Bld) [#/Vol] 4.76 10*6/uL 4.6-6.2 [facility] White blood cell (WBC) count Ordered By: Clinton Soares on 09-19-2024 WBC (Bld) [#/Vol] 7.7 10*3/uL 4.4-11.0 [facility] 12 Lead EKGon 09-18-2024 12 Lead EKG Normal [facility] Absolute lymphocyte countOrd ered By: Saúl Aguilar on 09-18-2024 Lymphocytes Auto (Unsp spec) [#/Vol] 2.05 10*3/uL 0.83-4.51 [facility] Anion gap in Serum or Plasma Ordered By: Saúl Aguilar on 09-18-2024 Anion gap [Moles/Vol] 12 mmol/L - [facility] Automated lymphocyte count a s percentage of total leukocytesOrdered By: Saúl Aguilar on 09-18-2024 Lymphocytes/100 WBC Auto (Unsp spec) 27.0 % - [facility] BUN/creatinine ratioOrdered By: Saúl Aguilar on 09-18-2024 Urea nitrogen/Creatinine [Mass ratio] 16.5 mg/mg - [facility] Basic Metabolic Profile (BMP )on 09-18-2024 BUN/CRE 16.5 RATIO Normal 01-23 [facility] Comment on above: Performed By: #### L 500.2396, L503.7505 ####[facility] [address] [place], [address] Calcium [Mass/Vol] 9.3 mg/dL Normal 7.6-11.0 [facility] Comment on above: Performed By: #### L 500.2500, L503.7505 ####[facility] [address] [place], [address] Chloride [Moles/Vol] 105 mmol/L Normal 98-108 [facility] Comment on above: Performed By: #### L 500.2500, L503.7505 ####[facility] [address] [place], [address] CO2 [Moles/Vol] 22.3 mmol/L Normal 21.0-32.0 [facility] Comment on above: Performed By: #### L 500.2500, L503.7505 ####[facility] [address] [place], [address] Creatinine [Mass/Vol] 1.01 mg/dL Normal 0.70-1.20 [facility] Comment on above: Performed By: #### L 500.2500, L503.7505 ####[facility] [address] [place], [address] GAP 12 Normal 5-15 [facility] Comment on above: Performed By: #### L 500.2500, L503.7505 ####[facility] [address] [place], [address] GFR/1.73 sq M.predicted among non-blacks MDRD (S/P/Bld) [Vol rate/Area] 83 mL/min/{1.73_m2} Normal >60 [facility] Comment on above: Result Comment: mL/m in/1.73m2 CKD-EPI Creatinine Equation (2020) Performed By: #### L 500.2500, L503.7505 ####[facility] [address] [place], [address] Glucose [Mass/Vol] 184 mg/dL High 70-99 [facility] Comment on above: Performed By: #### L 500.2500, L503.7505 ####[facility] [address] [place], [address] Potassium [Moles/Vol] 5.0 mmol/L Normal 3.3-5.1 [facility] Comment on above: Result Comment: Hemo lysis present, Results??could be affected.?? Performed By: #### L 500.2500, L503.7505 ####[facility] [address] [place], [address] Sodium [Moles/Vol] 139 mmol/L Normal 133-145 [facility] Comment on above: Performed By: #### L 500.2500, L503.7505 ####[facility] [address] [place], [address] Urea nitrogen [Mass/Vol] 17 mg/dL Normal 4-19 [facility] Comment on above: Performed By: #### L 500.2500, L503.7505 ####[facility] [address] [place], [address] Basophil percentageOrdered B y: Saúl Aguilar on 09-18-2024 Basophils/100 WBC (Bld) 0.4 % 0-1 [facility] Bedside Glucoseon 09-18-2024 FINGERSTICK GLU 327 mg/dL High 74-106 [facility] Comment on above: Result Comment: SNEHA GEMENT OF PATIENT CARE PER NURSING PROTOCOL Performed By: #### L 501.080 ####[facility] [address] [place], [address] FINGERSTICK GLU 207 mg/dL High 74-106 [facility] Comment on above: Result Comment: SNEHA GEMENT OF PATIENT CARE PER NURSING PROTOCOL Performed By: #### L 501.080 ####[facility] [address] [place], [address] CBC W/Diff, Automatedon 06- Absolute Lymph 2.05 X10 3/uL Normal 0.83-4.51 [facility] Comment on above: Performed By: #### L 501.4021, L100.0100 ####[facility] [address] [place], [address] Absolute Neut 4.7 X10 3/uL Normal 2.0-7.7 [facility] Comment on above: Performed By: #### L 501.4021, L100.0100 ####[facility] [address] [place], [address] Basophils/100 WBC (Bld) 0.4 % Normal 0-1 [facility] Comment on above: Performed By: #### L 501.4021, L100.0100 ####[facility] [address] [place], [address] Eosinophils/100 WBC (Bld) 3.7 % Normal 0-5 [facility] Comment on above: Performed By: #### L 501.4021, L100.0100 ####[facility] [address] [place], [address] Erythrocyte distribution width (RBC) [Ratio] 12.9 % Normal 11.6-14.6 [facility] Comment on above: Performed By: #### L 501.4021, L100.0100 ####[facility] [address] [place], [address] Hematocrit (Bld) [Volume fraction] 44.4 % Normal 40-54 [facility] Comment on above: Performed By: #### L 501.4021, L100.0100 ####[facility] [address] [place], [address] Hemoglobin (Bld) [Mass/Vol] 14.8 g/dL Normal 13.0-16.5 [facility] Comment on above: Performed By: #### L 501.4021, L100.0100 ####[facility] [address] [place], [address] IG% 0.300 Normal 0.0-0.9 [facility] Comment on above: Result Comment: IG% - Immature Granulocytes (promyelocytes, myelocytes andmetamyelocytes) > 1% indicates that a LEFT SHIFT is Present. Performed By: #### L 501.4021, L100.0100 ####[facility] [address] [place], [address] Lymphocytes/100 WBC (Bld) 27.0 % Normal 19-41 [facility] Comment on above: Performed By: #### L 501.4021, L100.0100 ####[facility] [address] [place], [address] MCH (RBC) [Entitic mass] 31.9 pg Normal 27.0-32.0 [facility] Comment on above: Performed By: #### L 501.4021, L100.0100 ####[facility] [address] [place], [address] MCHC (RBC) [Mass/Vol] 33.3 g/dL Normal 32-36 [facility] Comment on above: Performed By: #### L 501.4021, L100.0100 ####[facility] [address] [place], [address] MCV (RBC) [Entitic vol] 95.7 fL High 80-94 [facility] Comment on above: Performed By: #### L 501.4021, L100.0100 ####[facility] [address] [place], [address] Monocytes/100 WBC (Bld) 6.7 % Normal 0-10 [facility] Comment on above: Performed By: #### L 501.4021, L100.0100 ####[facility] [address] [place], [address] Neutrophils/100 WBC (Bld) 61.9 % Normal 47-70 [facility] Comment on above: Performed By: #### L 501.4021, L100.0100 ####[facility] [address] [place], [address] Nucleated RBC (Bld) [#/Vol] 0 10*3/uL Normal 0-5 [facility] Comment on above: Performed By: #### L 501.4021, L100.0100 ####[facility] [address] [place], [address] Platelet mean volume (Bld) [Entitic vol] 9.5 fL Normal 6.2-12.0 [facility] Comment on above: Performed By: #### L 501.4021, L100.0100 ####[facility] [address] [place], [address] Platelets (Bld) [#/Vol] 276 10*3/uL Normal 150-450 [facility] Comment on above: Performed By: #### L 501.4021, L100.0100 ####[facility] [address] [place], [address] RBC (Bld) [#/Vol] 4.64 10*6/uL Normal 4.6-6.2 [facility] Comment on above: Performed By: #### L 501.4021, L100.0100 ####[facility] [address] [place], [address] RDW SD 45.1 fl High 35.1-43.9 [facility] Comment on above: Performed By: #### L 501.4021, L100.0100 ####[facility] [address] [place], [address] WBC (Bld) [#/Vol] 7.6 10*3/uL Normal 4.4-11.0 [facility] Comment on above: Performed By: #### L 501.4021, L100.0100 ####[facility] [address] [place], [address] Carbon dioxide, total [Moles /volume] in Central venous bloodOrdered By: Saúl Aguilar on 09-18-2024 CO2 [Moles/Vol] 22.3 mmol/L 21.0-32.0 [facility] Chest 1 View (Portable)on Chest 1 View (Portable) Normal [facility] Chloride assayOrdered By: Chacho Aguilar on 09-18-2024 Chloride [Moles/Vol] 105 mmol/L 98-108 [facility] Echo, Limited Studyon 2024 Echo, Limited Study Normal [facility] Emergency Department Summary on 09-18-2024 Emergency Department Summary Normal [facility] Eosinophil percentageOrdered By: Saúl Aguilar on 09-18-2024 Eosinophils/100 WBC (Bld) 3.7 % 0-5 [facility] Erythrocyte distribution wid th ratioOrdered By: Saúl Aguilar on 09-18-2024 Erythrocyte distribution width (RBC) [Ratio] 12.9 % 11.6-14.6 [facility] Erythrocyte distribution wid th standard deviationOrdered By: Saúl Aguilar on 09-18-2024 Erythrocyte distribution width (RBC) [Ratio] 45.1 fl High 35.1-43.9 [facility] Glomerular filtration rate ( GFR) estimation/1.73 sq m using serum, plasma, or whole bOrdered By: Saúl Aguilar on 09-18-2024 GFR/1.73 sq M.predicted among non-blacks MDRD (S/P/Bld) [Vol rate/Area] 83 mL/min/{1.73_m2} >60 [facility] H AND P Exam - Hospitaliston 09-18-2024 H&P Exam - Hospitalist Normal [facility] Hematocrit Auto (Bld) [Volum e fraction]Ordered By: Saúl Aguilar on 09-18-2024 Hematocrit (Bld) [Volume fraction] 44.4 % 40-54 [facility] Hemoglobin A1con 09-18-2024 HbA1c (Bld) [Mass fraction] 9.9 % High <=5.6 [facility] Comment on above: Result Comment: Norm al < 5.7 % Prediabetic 5.7 - 6.4 % Diabetic >or= 6.5 % Please note range changes. Performed By: #### L 501.9985 ####[facility] [address] [place], [place], [address] Hemoglobin A1c percentageOrd ered By: Clinton Soares on 09-18-2024 HbA1c (Bld) [Mass fraction] 9.9 % High <5.7 [facility] Hemoglobin measurementOrdere d By: Saúl Aguilar on 09-18-2024 Hemoglobin (Bld) [Mass/Vol] 14.8 g/dL 13.0-16.5 [facility] Immature granulocytes/100 WB C Auto (Bld)Ordered By: Saúl Aguilar on 09-18-2024 Immature granulocytes/100 WBC (Bld) 0.300 % 0.0-0.9 [facility] L499.0042on 09-18-2024 Trop T High Sen 62 ng/L Invalid Interpretation Code <=22 [facility] Comment on above: Result Comment: Crit ical Result(s) Called at: 09/18/2024-01:23 by: Nesha Rodriguez.??Results read back by same. Performed By: #### L 499.0042 ####[facility] [address] [place], [address] L499.0043on 09-18-2024 Trop T High Sen 64 ng/L Invalid Interpretation Code <=22 [facility] Comment on above: Result Comment: Crit ical Result(s) Called at: 09/18/2024-11:33 by: Nseha Haider.??Results read back by same. Performed By: #### L 499.0043 ####[facility] [address] [place], [address] L501.4021on 09-18-2024 Trop T High Sen 64 ng/L Invalid Interpretation Code <=22 [facility] Comment on above: Result Comment: Hemo lysis present, Results??could be affected.??Critical Result(s) Called at: 09/18/2024-11:33 by: Nesha to Dolly Rodriguez.??Results read back by same. Performed By: #### L 501.4021, L100.0100 ####[facility] [address] [place], [address] L503.7505on 09-18-2024 Natriuretic peptide B (Bld) [Mass/Vol] 2552 pg/mL High <=900 [facility] Comment on above: Result Comment: Hear t Failure Unlikely: < 300 pg/mLHeart Failure Likely< 50 Years: > 450 pg/mL50-75 Years: > 900 pg/mL>75 Years: > 1800 pg/mL Performed By: #### L 500.2500, L503.7505 ####[facility] [address] [place], [place], [address] MCV (mean corpuscular volume ) determinationOrdered By: Saúl Aguilar on 09-18-2024 MCV (RBC) [Entitic vol] 95.7 fL High 80-94 [facility] Mean corpuscular hemoglobin (MCH) determinationOrdered By: Saúl Aguilar on 09-18-2024 MCH (RBC) [Entitic mass] 31.9 pg 27.0-32.0 [facility] Monocyte percentageOrdered B y: Saúl Aguilar on 09-18-2024 Monocytes/100 WBC (Bld) 6.7 % 0-10 [facility] Natriuretic peptide.B prohor parris N-Terminal [Mass/volume] in Serum or PlasmaOrdered By: Saúl Aguilar on 09-18-2024 Natriuretic peptide.B prohormone N-Terminal [Mass/Vol] 2552 pg/mL High <900 [facility] Neutrophil percentageOrdered By: Saúl Aguilar on 09-18-2024 Neutrophils/100 WBC (Bld) 61.9 % 47-70 [facility] Platelet countOrdered By: Chacho Aguilar on 09-18-2024 Platelets (Bld) [#/Vol] 276 10*3/uL 150-450 [facility] Potassium measurement (mass/ volume)Ordered By: Saúl Aguilar on 09-18-2024 Potassium (Unsp spec) [Mass/Vol] 5.0 mmol/L 3.3-5.1 [facility] RBC Auto (Bld) [#/Vol]Ordere d By: Saúl Aguilar on 09-18-2024 RBC (Bld) [#/Vol] 4.64 10*6/uL 4.6-6.2 [facility] Serum creatinine measurement (mass/volume)Ordered By: Saúl Aguilar on 09-18-2024 Creatinine [Mass/Vol] 1.01 mg/dL 0.70-1.20 [facility] Serum glucose measurement (m ass/volume)Ordered By: Saúl Aguilar on 09-18-2024 Glucose [Mass/Vol] 184 mg/dL High 70-99 [facility] Serum or plasma calcium brenda urement (mass/volume)Ordered By: Saúl Aguilar on 09-18-2024 Calcium [Mass/Vol] 9.3 mg/dL 7.6-11.0 [facility] Serum or plasma urea nitroge n measurement (mass/volume)Ordered By: Saúl Aguilar on 09-18-2024 Urea nitrogen [Mass/Vol] 17 mg/dL 4-19 [facility] Sodium levelOrdered By: Saúl Aguilar on 09-18-2024 Sodium [Moles/Vol] 139 mmol/L 133-145 [facility] Troponin T.cardiac [Mass/vol ume] in Serum or Plasma by High sensitivity methodOrdered By: Saúl Aguilar on 09-18-2024 Troponin T.cardiac High sensitivity method [Mass/Vol] 64 ng/L High <22 [facility] Troponin T.cardiac High sensitivity method [Mass/Vol] 62 ng/L High <22 [facility] Troponin T.cardiac High sensitivity method [Mass/Vol] 64 ng/L High <22 [facility] White blood cell (WBC) count Ordered By: Saúl Aguilar on 09-18-2024 WBC (Bld) [#/Vol] 7.6 10*3/uL 4.4-11.0 [facility] Arterial study reportOrdered By: Saúl Flowers on 09-08-2024 Noninvasive arteriosclerosis study report [facility] Work Phone: [phone] Carotid Duplex Ultrasoundon 09-08-2024 Carotid Duplex Ultrasound Normal [facility] Duplex ultrasound of carotid artery reportOrdered By: Saúl Flowers on 09-08-2024 Study report [facility] Work Phone: [phone] Lower Ext Art Exam w/o Exerc zachary 09-08-2024 Lower Ext Art Exam w/o Exercis Normal [facility] Internal Medicine Office Vis iton 08-02-2024 Internal Medicine Office Visit Normal [facility] No Panel InformationOrdered By: Xiang Rogers on 08-02-2024 12.5 % High 4.2-6.3 [facility] L499.0043on 07-30-2024 Trop T High Sen Normal <=22 [facility] Comment on above: Result Comment: Canc elled via OM: Order cancelled - Patient discharged Performed By: #### L 499.0043 ####[facility] [address] [place], [address] Absolute lymphocyte countOrd ered By: ED PROVIDER on 07-29-2024 Lymphocytes Auto (Unsp spec) [#/Vol] 2.79 10*3/uL 0.83-4.51 [facility] Anion gap in Serum or Plasma Ordered By: Lawson Castellon on 07-29-2024 Anion gap [Moles/Vol] 16 mmol/L High 5-15 [facility] Automated lymphocyte count a s percentage of total leukocytesOrdered By: ED PROVIDER on 07-29-2024 Lymphocytes/100 WBC Auto (Unsp spec) 37.4 % 19-41 [facility] BUN/creatinine ratioOrdered By: Lawson Castellon on 07-29-2024 Urea nitrogen/Creatinine [Mass ratio] 20.7 mg/mg High 10-20 [facility] Basic Metabolic Profile (BMP )on 07-29-2024 BUN/CRE 20.7 RATIO High - [facility] Comment on above: Performed By: #### L 501.4021, L500.2500, L100.0100 ####[facility] [address] [place], [address] Calcium [Mass/Vol] 9.3 mg/dL Normal 7.6-11.0 [facility] Comment on above: Performed By: #### L 501.4021, L500.2500, L100.0100 ####[facility] [address] [place], [address] Chloride [Moles/Vol] 99 mmol/L Normal 98-108 [facility] Comment on above: Performed By: #### L 501.4021, L500.2500, L100.0100 ####[facility] [address] [place], [address] CO2 [Moles/Vol] 19.8 mmol/L Low 21.0-32.0 [facility] Comment on above: Performed By: #### L 501.4021, L500.2500, L100.0100 ####[facility] [address] [place], [address] Creatinine [Mass/Vol] 1.11 mg/dL Normal 0.70-1.20 [facility] Comment on above: Performed By: #### L 501.4021, L500.2500, L100.0100 ####[facility] [address] [place], [address] ECRCL 71.61 ml/min Normal 50-250 [facility] Comment on above: Performed By: #### L 501.4021, L500.2500, L100.0100 ####[facility] [address] [place], [address] GAP 16 High 5-15 [facility] Comment on above: Performed By: #### L 501.4021, L500.2500, L100.0100 ####[facility] [address] [place], [address] GFR/1.73 sq M.predicted among non-blacks MDRD (S/P/Bld) [Vol rate/Area] 74 mL/min/{1.73_m2} Normal >60 [facility] Comment on above: Result Comment: mL/m in/1.73m2 CKD-EPI Creatinine Equation (2020) Performed By: #### L 501.4021, L500.2500, L100.0100 ####[facility] [address] [place], [address] Glucose [Mass/Vol] 400 mg/dL High 70-99 [facility] Comment on above: Performed By: #### L 501.4021, L500.2500, L100.0100 ####[facility] [address] [place], [address] Potassium [Moles/Vol] 4.0 mmol/L Normal 3.3-5.1 [facility] Comment on above: Result Comment: Hemo lysis present, Results??could be affected.?? Performed By: #### L 501.4021, L500.2500, L100.0100 ####[facility] [address] [place], [address] Sodium [Moles/Vol] 134 mmol/L Normal 133-145 [facility] Comment on above: Performed By: #### L 501.4021, L500.2500, L100.0100 ####[facility] [address] [place], [address] Urea nitrogen [Mass/Vol] 23 mg/dL High 4-19 [facility] Comment on above: Performed By: #### L 501.4021, L500.2500, L100.0100 ####[facility] [address] [place], [address] Basophil percentageOrdered B y: ED PROVIDER on 07-29-2024 Basophils/100 WBC (Bld) 0.3 % 0-1 [facility] CBC W/Diff, Automatedon 04-5 Absolute Lymph 2.79 X10 3/uL Normal 0.83-4.51 [facility] Comment on above: Performed By: #### L 501.4021, L500.2500, L100.0100 ####[facility] [address] [place], [address] Absolute Neut 4.0 X10 3/uL Normal 2.0-7.7 [facility] Comment on above: Performed By: #### L 501.4021, L500.2500, L100.0100 ####[facility] [address] [place], [address] Basophils/100 WBC (Bld) 0.3 % Normal 0-1 [facility] Comment on above: Performed By: #### L 501.4021, L500.2500, L100.0100 ####[facility] [address] [place], [address] Eosinophils/100 WBC (Bld) 2.5 % Normal 0-5 [facility] Comment on above: Performed By: #### L 501.4021, L500.2500, L100.0100 ####[facility] [address] [place], [address] Erythrocyte distribution width (RBC) [Ratio] 12.7 % Normal 11.6-14.6 [facility] Comment on above: Performed By: #### L 501.4021, L500.2500, L100.0100 ####[facility] [address] [place], [address] Hematocrit (Bld) [Volume fraction] 44.1 % Normal 40-54 [facility] Comment on above: Performed By: #### L 501.4021, L500.2500, L100.0100 ####[facility] [address] [place], [address] Hemoglobin (Bld) [Mass/Vol] 15.6 g/dL Normal 13.0-16.5 [facility] Comment on above: Performed By: #### L 501.4021, L500.2500, L100.0100 ####[facility] [address] [place], [address] IG% 0.100 Normal 0.0-0.9 [facility] Comment on above: Result Comment: IG% - Immature Granulocytes (promyelocytes, myelocytes andmetamyelocytes) > 1% indicates that a LEFT SHIFT is Present. Performed By: #### L 501.4021, L500.2500, L100.0100 ####[facility] [address] [place], [address] Lymphocytes/100 WBC (Bld) 37.4 % Normal 19-41 [facility] Comment on above: Performed By: #### L 501.4021, L500.2500, L100.0100 ####[facility] [address] [place], [address] MCH (RBC) [Entitic mass] 32.2 pg High 27.0-32.0 [facility] Comment on above: Performed By: #### L 501.4021, L500.2500, L100.0100 ####[facility] [address] [place], [address] MCHC (RBC) [Mass/Vol] 35.4 g/dL Normal 32-36 [facility] Comment on above: Performed By: #### L 501.4021, L500.2500, L100.0100 ####[facility] [address] [place], [address] MCV (RBC) [Entitic vol] 90.9 fL Normal 80-94 [facility] Comment on above: Performed By: #### L 501.4021, L500.2500, L100.0100 ####[facility] [address] [place], [address] Monocytes/100 WBC (Bld) 6.6 % Normal 0-10 [facility] Comment on above: Performed By: #### L 501.4021, L500.2500, L100.0100 ####[facility] [address] [place], [address] Neutrophils/100 WBC (Bld) 53.1 % Normal 47-70 [facility] Comment on above: Performed By: #### L 501.4021, L500.2500, L100.0100 ####[facility] [address] [place], [address] Nucleated RBC (Bld) [#/Vol] 0 10*3/uL Normal 0-5 [facility] Comment on above: Performed By: #### L 501.4021, L500.2500, L100.0100 ####[facility] [address] [place], [address] Platelet mean volume (Bld) [Entitic vol] 10.3 fL Normal 6.2-12.0 [facility] Comment on above: Performed By: #### L 501.4021, L500.2500, L100.0100 ####[facility] [address] [place], [address] Platelets (Bld) [#/Vol] 275 10*3/uL Normal 150-450 [facility] Comment on above: Performed By: #### L 501.4021, L500.2500, L100.0100 ####[facility] [address] [place], [address] RBC (Bld) [#/Vol] 4.85 10*6/uL Normal 4.6-6.2 [facility] Comment on above: Performed By: #### L 501.4021, L500.2500, L100.0100 ####[facility] [address] [place], [address] RDW SD 41.7 fl Normal 35.1-43.9 [facility] Comment on above: Performed By: #### L 501.4021, L500.2500, L100.0100 ####[facility] [address] [place], [address] WBC (Bld) [#/Vol] 7.5 10*3/uL Normal 4.4-11.0 [facility] Comment on above: Performed By: #### L 501.4021, L500.2500, L100.0100 ####[facility] [address] [place], [address] Carbon dioxide, total [Moles /volume] in Central venous bloodOrdered By: Lawson Castellon on 07-29-2024 CO2 [Moles/Vol] 19.8 mmol/L Low 21.0-32.0 [facility] Chest 1 View (Portable)on Chest 1 View (Portable) Normal [facility] Chloride assayOrdered By: Isael Castellon on 07-29-2024 Chloride [Moles/Vol] 99 mmol/L 98-108 [facility] Emergency Department Summary on 07-29-2024 Emergency Department Summary Normal [facility] Eosinophil percentageOrdered By: ED PROVIDER on 07-29-2024 Eosinophils/100 WBC (Bld) 2.5 % 0-5 [facility] Erythrocyte distribution wid th ratioOrdered By: ED PROVIDER on 07-29-2024 Erythrocyte distribution width (RBC) [Ratio] 12.7 % 11.6-14.6 [facility] Erythrocyte distribution wid th standard deviationOrdered By: ED PROVIDER on 07-29-2024 Erythrocyte distribution width (RBC) [Ratio] 41.7 fl 35.1-43.9 [facility] Glomerular filtration rate ( GFR) estimation/1.73 sq m using serum, plasma, or whole bOrdered By: Lawson Castellon on 07-29-2024 GFR/1.73 sq M.predicted among non-blacks MDRD (S/P/Bld) [Vol rate/Area] 74 mL/min/{1.73_m2} >60 [facility] Hematocrit Auto (Bld) [Volum e fraction]Ordered By: ED PROVIDER on 07-29-2024 Hematocrit (Bld) [Volume fraction] 44.1 % 40-54 [facility] Hemoglobin measurementOrdere d By: ED PROVIDER on 07-29-2024 Hemoglobin (Bld) [Mass/Vol] 15.6 g/dL 13.0-16.5 [facility] Immature granulocytes/100 WB C Auto (Bld)Ordered By: ED PROVIDER on 07-29-2024 Immature granulocytes/100 WBC (Bld) 0.100 % 0.0-0.9 [facility] L499.0042on 07-29-2024 Trop T High Sen 27 ng/L High <=22 [facility] Comment on above: Performed By: #### L 499.0042 ####[facility] [address] [facility] [place], [address] L501.4021on 07-29-2024 Trop T High Sen 22 ng/L Normal <=22 [facility] Comment on above: Performed By: #### L 501.4021, L500.2500, L100.0100 ####[facility] [address] [facility] [place], [address] MCV (mean corpuscular volume ) determinationOrdered By: ED PROVIDER on 07-29-2024 MCV (RBC) [Entitic vol] 90.9 fL 80-94 [facility] Mean corpuscular hemoglobin (MCH) determinationOrdered By: ED PROVIDER on 07-29-2024 MCH (RBC) [Entitic mass] 32.2 pg High 27.0-32.0 [facility] Monocyte percentageOrdered B y: ED PROVIDER on 07-29-2024 Monocytes/100 WBC (Bld) 6.6 % 0-10 [facility] Neutrophil percentageOrdered By: ED PROVIDER on 07-29-2024 Neutrophils/100 WBC (Bld) 53.1 % 47-70 [facility] Platelet countOrdered By: ED PROVIDER on 07-29-2024 Platelets (Bld) [#/Vol] 275 10*3/uL 150-450 [facility] Potassium measurement (mass/ volume)Ordered By: Lawson Castellon on 07-29-2024 Potassium (Unsp spec) [Mass/Vol] 4.0 mmol/L 3.3-5.1 [facility] RBC Auto (Bld) [#/Vol]Ordere d By: ED PROVIDER on 07-29-2024 RBC (Bld) [#/Vol] 4.85 10*6/uL 4.6-6.2 [facility] Serum creatinine measurement (mass/volume)Ordered By: Lawson Castellon on 07-29-2024 Creatinine [Mass/Vol] 1.11 mg/dL 0.70-1.20 [facility] Serum glucose measurement (m ass/volume)Ordered By: Lawson Castellon on 07-29-2024 Glucose [Mass/Vol] 400 mg/dL High 70-99 [facility] Serum or plasma calcium brenda urement (mass/volume)Ordered By: Lawson Castellon on 07-29-2024 Calcium [Mass/Vol] 9.3 mg/dL 7.6-11.0 [facility] Serum or plasma urea nitroge n measurement (mass/volume)Ordered By: Lawson Castellon on 07-29-2024 Urea nitrogen [Mass/Vol] 23 mg/dL High 07-23 [facility] Sodium levelOrdered By: Lawson Castellon on 07-29-2024 Sodium [Moles/Vol] 134 mmol/L 133-145 [facility] Troponin T.cardiac [Mass/vol ume] in Serum or Plasma by High sensitivity methodOrdered By: Lawson Castellon on 07-29-2024 Troponin T.cardiac High sensitivity method [Mass/Vol] 27 ng/L High <22 [facility] Troponin T.cardiac High sensitivity method [Mass/Vol] 22 ng/L <22 [facility] White blood cell (WBC) count Ordered By: ED PROVIDER on 07-29-2024 WBC (Bld) [#/Vol] 7.5 10*3/uL 4.4-11.0 [facility] MR/BMS.BVSon 07-14-2024 MR/BMS.BVS Normal [facility] Cardiology Visit Reporton Cardiology Visit Report Normal [facility] Basic Metabolic Profile (BMP )on 06-26-2024 BUN Normal - [facility] Comment on above: Result Comment: Canc elled via OM: Order cancelled - Patient discharged Performed By: #### L 500.2500, L100.0500 ####[facility] [address] [place], [address] BUN/CRE Normal 10-20 [facility] Comment on above: Result Comment: Canc elled via OM: Order cancelled - Patient discharged Performed By: #### L 500.2500, L100.0500 ####[facility] [address] [place], [address] Calcium Normal 7.6-11.0 [facility] Comment on above: Result Comment: Canc elled via OM: Order cancelled - Patient discharged Performed By: #### L 500.2500, L100.0500 ####[facility] [address] [place], [address] CL Normal 98-108 [facility] Comment on above: Result Comment: Canc elled via OM: Order cancelled - Patient discharged Performed By: #### L 500.2500, L100.0500 ####[facility] [address] [place], [address] CO2 Normal 21.0-32.0 [facility] Comment on above: Result Comment: Canc elled via OM: Order cancelled - Patient discharged Performed By: #### L 500.2500, L100.0500 ####[facility] [address] [place], [address] CREAT,SERUM Normal 0.70-1.20 [facility] Comment on above: Result Comment: Canc elled via OM: Order cancelled - Patient discharged Performed By: #### L 500.2500, L100.0500 ####[facility] [address] [place], [address] eGFR Normal >60 [facility] Comment on above: Result Comment: Canc elled via OM: Order cancelled - Patient discharged Performed By: #### L 500.2500, L100.0500 ####[facility] [address] [place], [address] GAP Normal 5-15 [facility] Comment on above: Result Comment: Canc elled via OM: Order cancelled - Patient discharged Performed By: #### L 500.2500, L100.0500 ####[facility] [address] [place], [address] GLU Normal 70-99 [facility] Comment on above: Result Comment: Canc elled via OM: Order cancelled - Patient discharged Performed By: #### L 500.2500, L100.0500 ####[facility] [address] [place], [address] Potassium Normal 3.3-5.1 [facility] Comment on above: Result Comment: Canc elled via OM: Order cancelled - Patient discharged Performed By: #### L 500.2500, L100.0500 ####[facility] [address] [place], [address] Basic Metabolic Profile (BMP) Normal 133-145 [facility] Comment on above: Result Comment: Canc elled via OM: Order cancelled - Patient discharged Performed By: #### L 500.2500, L100.0500 ####[facility] [address] [place], [address] CBC-Complete Blood Cnt No Di ffon 06-26-2024 HCT Normal 40-54 [facility] Comment on above: Result Comment: Canc elled via OM: Order cancelled - Patient discharged Performed By: #### L 500.2500, L100.0500 ####[facility] [address] [place], [address] HGB Normal 13.0-16.5 [facility] Comment on above: Result Comment: Canc elled via OM: Order cancelled - Patient discharged Performed By: #### L 500.2500, L100.0500 ####[facility] [address] [place], [address] MCH Normal 27.0-32.0 [facility] Comment on above: Result Comment: Canc elled via OM: Order cancelled - Patient discharged Performed By: #### L 500.2500, L100.0500 ####[facility] [address] [place], [address] MCHC Normal 32-36 [facility] Comment on above: Result Comment: Canc elled via OM: Order cancelled - Patient discharged Performed By: #### L 500.2500, L100.0500 ####[facility] [address] [place], [address] MCV Normal 80-94 [facility] Comment on above: Result Comment: Canc elled via OM: Order cancelled - Patient discharged Performed By: #### L 500.2500, L100.0500 ####[facility] [address] [place], [address] PLT Normal 150-450 [facility] Comment on above: Result Comment: Canc elled via OM: Order cancelled - Patient discharged Performed By: #### L 500.2500, L100.0500 ####[facility] [address] [place], [address] RBC Normal 4.6-6.2 [facility] Comment on above: Result Comment: Canc elled via OM: Order cancelled - Patient discharged Performed By: #### L 500.2500, L100.0500 ####[facility] [address] [place], [address] RDW CV Normal 11.6-14.6 [facility] Comment on above: Result Comment: Canc elled via OM: Order cancelled - Patient discharged Performed By: #### L 500.2500, L100.0500 ####[facility] [address] [place], [address] RDW SD Normal 35.1-43.9 [facility] Comment on above: Result Comment: Canc elled via OM: Order cancelled - Patient discharged Performed By: #### L 500.2500, L100.0500 ####[facility] [address] [place], [address] WBC Normal 4.4-11.0 [facility] Comment on above: Result Comment: Canc elled via OM: Order cancelled - Patient discharged Performed By: #### L 500.2500, L100.0500 ####[facility] [address] [place], [address] Basic Metabolic Profile (BMP )on 06-25-2024 BUN Normal 4-19 [facility] Comment on above: Result Comment: Canc elled via OM: Order cancelled - Patient discharged Performed By: #### L 500.2500, L100.0500 ####[facility] [address] [place], [address] BUN/CRE Normal 10-20 [facility] Comment on above: Result Comment: Canc elled via OM: Order cancelled - Patient discharged Performed By: #### L 500.2500, L100.0500 ####[facility] [address] [place], [address] Calcium Normal 7.6-11.0 [facility] Comment on above: Result Comment: Canc elled via OM: Order cancelled - Patient discharged Performed By: #### L 500.2500, L100.0500 ####[facility] [address] [place], [address] CL Normal 98-108 [facility] Comment on above: Result Comment: Canc elled via OM: Order cancelled - Patient discharged Performed By: #### L 500.2500, L100.0500 ####[facility] [address] [place], [address] CO2 Normal 21.0-32.0 [facility] Comment on above: Result Comment: Canc elled via OM: Order cancelled - Patient discharged Performed By: #### L 500.2500, L100.0500 ####[facility] [address] [place], [address] CREAT,SERUM Normal 0.70-1.20 [facility] Comment on above: Result Comment: Canc elled via OM: Order cancelled - Patient discharged Performed By: #### L 500.2500, L100.0500 ####[facility] [address] [place], [address] eGFR Normal >60 [facility] Comment on above: Result Comment: Canc elled via OM: Order cancelled - Patient discharged Performed By: #### L 500.2500, L100.0500 ####[facility] [address] [place], [address] GAP Normal 5-15 [facility] Comment on above: Result Comment: Canc elled via OM: Order cancelled - Patient discharged Performed By: #### L 500.2500, L100.0500 ####[facility] [address] [place], [address] GLU Normal 70-99 [facility] Comment on above: Result Comment: Canc elled via OM: Order cancelled - Patient discharged Performed By: #### L 500.2500, L100.0500 ####[facility] [address] [place], [address] Potassium Normal 3.3-5.1 [facility] Comment on above: Result Comment: Canc elled via OM: Order cancelled - Patient discharged Performed By: #### L 500.2500, L100.0500 ####[facility] [address] [place], [address] Basic Metabolic Profile (BMP) Normal 133-145 [facility] Comment on above: Result Comment: Canc elled via OM: Order cancelled - Patient discharged Performed By: #### L 500.2500, L100.0500 ####[facility] [address] [place], [address] CBC-Complete Blood Cnt No Di ffon 06-25-2024 HCT Normal 40-54 [facility] Comment on above: Result Comment: Canc elled via OM: Order cancelled - Patient discharged Performed By: #### L 500.2500, L100.0500 ####[facility] [address] [place], [address] HGB Normal 13.0-16.5 [facility] Comment on above: Result Comment: Canc elled via OM: Order cancelled - Patient discharged Performed By: #### L 500.2500, L100.0500 ####[facility] [address] [place], [address] MCH Normal 27.0-32.0 [facility] Comment on above: Result Comment: Canc elled via OM: Order cancelled - Patient discharged Performed By: #### L 500.2500, L100.0500 ####[facility] [address] [place], [address] MCHC Normal 32-36 [facility] Comment on above: Result Comment: Canc elled via OM: Order cancelled - Patient discharged Performed By: #### L 500.2500, L100.0500 ####[facility] [address] [place], [address] MCV Normal 80-94 [facility] Comment on above: Result Comment: Canc elled via OM: Order cancelled - Patient discharged Performed By: #### L 500.2500, L100.0500 ####[facility] [address] [place], [address] PLT Normal 150-450 [facility] Comment on above: Result Comment: Canc elled via OM: Order cancelled - Patient discharged Performed By: #### L 500.2500, L100.0500 ####[facility] [address] [place], [address] RBC Normal 4.6-6.2 [facility] Comment on above: Result Comment: Canc elled via OM: Order cancelled - Patient discharged Performed By: #### L 500.2500, L100.0500 ####[facility] [address] [place], [address] RDW CV Normal 11.6-14.6 [facility] Comment on above: Result Comment: Canc elled via OM: Order cancelled - Patient discharged Performed By: #### L 500.2500, L100.0500 ####[facility] [address] [place], [address] RDW SD Normal 35.1-43.9 [facility] Comment on above: Result Comment: Canc elled via OM: Order cancelled - Patient discharged Performed By: #### L 500.2500, L100.0500 ####[facility] [address] [place], [address] WBC Normal 4.4-11.0 [facility] Comment on above: Result Comment: Canc elled via OM: Order cancelled - Patient discharged Performed By: #### L 500.2500, L100.0500 ####[facility] [address] [place], [address] Basic Metabolic Profile (BMP )on 06-24-2024 BUN Normal 4-19 [facility] Comment on above: Result Comment: Canc elled via OM: Order cancelled - Patient discharged Performed By: #### L 500.2500, L100.0500 ####[facility] [address] [place], [address] BUN/CRE Normal 10-20 [facility] Comment on above: Result Comment: Canc elled via OM: Order cancelled - Patient discharged Performed By: #### L 500.2500, L100.0500 ####[facility] [address] [place], [address] Calcium Normal 7.6-11.0 [facility] Comment on above: Result Comment: Canc elled via OM: Order cancelled - Patient discharged Performed By: #### L 500.2500, L100.0500 ####[facility] [address] [place], [address] CL Normal 98-108 [facility] Comment on above: Result Comment: Canc elled via OM: Order cancelled - Patient discharged Performed By: #### L 500.2500, L100.0500 ####[facility] [address] [place], [address] CO2 Normal 21.0-32.0 [facility] Comment on above: Result Comment: Canc elled via OM: Order cancelled - Patient discharged Performed By: #### L 500.2500, L100.0500 ####[facility] [address] [place], [address] CREAT,SERUM Normal 0.70-1.20 [facility] Comment on above: Result Comment: Canc elled via OM: Order cancelled - Patient discharged Performed By: #### L 500.2500, L100.0500 ####[facility] [address] [place], [address] eGFR Normal >60 [facility] Comment on above: Result Comment: Canc elled via OM: Order cancelled - Patient discharged Performed By: #### L 500.2500, L100.0500 ####[facility] [address] [place], [address] GAP Normal 5-15 [facility] Comment on above: Result Comment: Canc elled via OM: Order cancelled - Patient discharged Performed By: #### L 500.2500, L100.0500 ####[facility] [address] [place], [address] GLU Normal 70-99 [facility] Comment on above: Result Comment: Canc elled via OM: Order cancelled - Patient discharged Performed By: #### L 500.2500, L100.0500 ####[facility] [address] [place], [address] Potassium Normal 3.3-5.1 [facility] Comment on above: Result Comment: Canc elled via OM: Order cancelled - Patient discharged Performed By: #### L 500.2500, L100.0500 ####[facility] [address] [place], [address] Basic Metabolic Profile (BMP) Normal 133-145 [facility] Comment on above: Result Comment: Canc elled via OM: Order cancelled - Patient discharged Performed By: #### L 500.2500, L100.0500 ####[facility] [address] [place], [address] CBC-Complete Blood Cnt No Di ffon 06-24-2024 HCT Normal 40-54 [facility] Comment on above: Result Comment: Canc elled via OM: Order cancelled - Patient discharged Performed By: #### L 500.2500, L100.0500 ####[facility] [address] [place], [address] HGB Normal 13.0-16.5 [facility] Comment on above: Result Comment: Canc elled via OM: Order cancelled - Patient discharged Performed By: #### L 500.2500, L100.0500 ####[facility] [address] [place], [address] MCH Normal 27.0-32.0 [facility] Comment on above: Result Comment: Canc elled via OM: Order cancelled - Patient discharged Performed By: #### L 500.2500, L100.0500 ####[facility] [address] [place], [address] MCHC Normal 32-36 [facility] Comment on above: Result Comment: Canc elled via OM: Order cancelled - Patient discharged Performed By: #### L 500.2500, L100.0500 ####[facility] [address] [place], [address] MCV Normal 80-94 [facility] Comment on above: Result Comment: Canc elled via OM: Order cancelled - Patient discharged Performed By: #### L 500.2500, L100.0500 ####[facility] [address] [place], [address] PLT Normal 150-450 [facility] Comment on above: Result Comment: Canc elled via OM: Order cancelled - Patient discharged Performed By: #### L 500.2500, L100.0500 ####[facility] [address] [place], [address] RBC Normal 4.6-6.2 [facility] Comment on above: Result Comment: Canc elled via OM: Order cancelled - Patient discharged Performed By: #### L 500.2500, L100.0500 ####[facility] [address] [place], [address] RDW CV Normal 11.6-14.6 [facility] Comment on above: Result Comment: Canc elled via OM: Order cancelled - Patient discharged Performed By: #### L 500.2500, L100.0500 ####[facility] [address] [place], [address] RDW SD Normal 35.1-43.9 [facility] Comment on above: Result Comment: Canc elled via OM: Order cancelled - Patient discharged Performed By: #### L 500.2500, L100.0500 ####[facility] [address] [place], [address] WBC Normal 4.4-11.0 [facility] Comment on above: Result Comment: Canc elled via OM: Order cancelled - Patient discharged Performed By: #### L 500.2500, L100.0500 ####[facility] [address] [place], [address] Basic Metabolic Profile (BMP )on 06-23-2024 BUN Normal 4-19 [facility] Comment on above: Result Comment: Canc elled via OM: Order cancelled - Patient discharged Performed By: #### L 100.0500, L500.2500 ####[facility] [address] [place], [address] BUN/CRE Normal - [facility] Comment on above: Result Comment: Canc elled via OM: Order cancelled - Patient discharged Performed By: #### L 100.0500, L500.2500 ####[facility] [address] [place], [address] Calcium Normal 7.6-11.0 [facility] Comment on above: Result Comment: Canc elled via OM: Order cancelled - Patient discharged Performed By: #### L 100.0500, L500.2500 ####[facility] [address] [place], [address] CL Normal 98-108 [facility] Comment on above: Result Comment: Canc elled via OM: Order cancelled - Patient discharged Performed By: #### L 100.0500, L500.2500 ####[facility] [address] [place], [address] CO2 Normal 21.0-32.0 [facility] Comment on above: Result Comment: Canc elled via OM: Order cancelled - Patient discharged Performed By: #### L 100.0500, L500.2500 ####[facility] [address] [place], [address] CREAT,SERUM Normal 0.70-1.20 [facility] Comment on above: Result Comment: Canc elled via OM: Order cancelled - Patient discharged Performed By: #### L 100.0500, L500.2500 ####[facility] [address] [place], [address] eGFR Normal >60 [facility] Comment on above: Result Comment: Canc elled via OM: Order cancelled - Patient discharged Performed By: #### L 100.0500, L500.2500 ####[facility] [address] [place], [address] GAP Normal 5-15 [facility] Comment on above: Result Comment: Canc elled via OM: Order cancelled - Patient discharged Performed By: #### L 100.0500, L500.2500 ####[facility] [address] [place], [address] GLU Normal 70-99 [facility] Comment on above: Result Comment: Canc elled via OM: Order cancelled - Patient discharged Performed By: #### L 100.0500, L500.2500 ####[facility] [address] [place], [address] Potassium Normal 3.3-5.1 [facility] Comment on above: Result Comment: Canc elled via OM: Order cancelled - Patient discharged Performed By: #### L 100.0500, L500.2500 ####[facility] [address] [place], [address] Basic Metabolic Profile (BMP) Normal 133-145 [facility] Comment on above: Result Comment: Canc elled via OM: Order cancelled - Patient discharged Performed By: #### L 100.0500, L500.2500 ####[facility] [address] [place], [address] CBC-Complete Blood Cnt No Di ffon 06-23-2024 HCT Normal 40-54 [facility] Comment on above: Result Comment: Canc elled via OM: Order cancelled - Patient discharged Performed By: #### L 100.0500, L500.2500 ####[facility] [address] [place], [address] HGB Normal 13.0-16.5 [facility] Comment on above: Result Comment: Canc elled via OM: Order cancelled - Patient discharged Performed By: #### L 100.0500, L500.2500 ####[facility] [address] [place], [address] MCH Normal 27.0-32.0 [facility] Comment on above: Result Comment: Canc elled via OM: Order cancelled - Patient discharged Performed By: #### L 100.0500, L500.2500 ####[facility] [address] [place], [address] MCHC Normal 32-36 [facility] Comment on above: Result Comment: Canc elled via OM: Order cancelled - Patient discharged Performed By: #### L 100.0500, L500.2500 ####[facility] [address] [place], [address] MCV Normal 80-94 [facility] Comment on above: Result Comment: Canc elled via OM: Order cancelled - Patient discharged Performed By: #### L 100.0500, L500.2500 ####[facility] [address] [place], [address] PLT Normal 150-450 [facility] Comment on above: Result Comment: Canc elled via OM: Order cancelled - Patient discharged Performed By: #### L 100.0500, L500.2500 ####[facility] [address] [place], [address] RBC Normal 4.6-6.2 [facility] Comment on above: Result Comment: Canc elled via OM: Order cancelled - Patient discharged Performed By: #### L 100.0500, L500.2500 ####[facility] [address] [place], [address] RDW CV Normal 11.6-14.6 [facility] Comment on above: Result Comment: Canc elled via OM: Order cancelled - Patient discharged Performed By: #### L 100.0500, L500.2500 ####[facility] [address] [place], [address] RDW SD Normal 35.1-43.9 [facility] Comment on above: Result Comment: Canc elled via OM: Order cancelled - Patient discharged Performed By: #### L 100.0500, L500.2500 ####[facility] [address] [place], [address] WBC Normal 4.4-11.0 [facility] Comment on above: Result Comment: Canc elled via OM: Order cancelled - Patient discharged Performed By: #### L 100.0500, L500.2500 ####[facility] [address] [place], [address] Basic Metabolic Profile (BMP )on 06-22-2024 BUN Normal - [facility] Comment on above: Result Comment: Canc elled via OM: Order cancelled - Patient discharged Performed By: #### L 100.0500, L500.2500 ####[facility] [address] [place], [address] BUN/CRE Normal - [facility] Comment on above: Result Comment: Canc elled via OM: Order cancelled - Patient discharged Performed By: #### L 100.0500, L500.2500 ####[facility] [address] [place], [address] Calcium Normal 7.6-11.0 [facility] Comment on above: Result Comment: Canc elled via OM: Order cancelled - Patient discharged Performed By: #### L 100.0500, L500.2500 ####[facility] [address] [place], [address] CL Normal 98-108 [facility] Comment on above: Result Comment: Canc elled via OM: Order cancelled - Patient discharged Performed By: #### L 100.0500, L500.2500 ####[facility] [address] [place], [address] CO2 Normal 21.0-32.0 [facility] Comment on above: Result Comment: Canc elled via OM: Order cancelled - Patient discharged Performed By: #### L 100.0500, L500.2500 ####[facility] [address] [place], [address] CREAT,SERUM Normal 0.70-1.20 [facility] Comment on above: Result Comment: Canc elled via OM: Order cancelled - Patient discharged Performed By: #### L 100.0500, L500.2500 ####[facility] [address] [place], [address] eGFR Normal >60 [facility] Comment on above: Result Comment: Canc elled via OM: Order cancelled - Patient discharged Performed By: #### L 100.0500, L500.2500 ####[facility] [address] [place], [address] GAP Normal 5-15 [facility] Comment on above: Result Comment: Canc elled via OM: Order cancelled - Patient discharged Performed By: #### L 100.0500, L500.2500 ####[facility] [address] [place], [address] GLU Normal 70-99 [facility] Comment on above: Result Comment: Canc elled via OM: Order cancelled - Patient discharged Performed By: #### L 100.0500, L500.2500 ####[facility] [address] [place], [address] Potassium Normal 3.3-5.1 [facility] Comment on above: Result Comment: Canc elled via OM: Order cancelled - Patient discharged Performed By: #### L 100.0500, L500.2500 ####[facility] [address] [place], [address] Basic Metabolic Profile (BMP) Normal 133-145 [facility] Comment on above: Result Comment: Canc elled via OM: Order cancelled - Patient discharged Performed By: #### L 100.0500, L500.2500 ####[facility] [address] [place], [address] CBC-Complete Blood Cnt No Di ffon 06-22-2024 HCT Normal 40-54 [facility] Comment on above: Result Comment: Canc elled via OM: Order cancelled - Patient discharged Performed By: #### L 100.0500, L500.2500 ####[facility] [address] [place], [address] HGB Normal 13.0-16.5 [facility] Comment on above: Result Comment: Canc elled via OM: Order cancelled - Patient discharged Performed By: #### L 100.0500, L500.2500 ####[facility] [address] [place], [address] MCH Normal 27.0-32.0 [facility] Comment on above: Result Comment: Canc elled via OM: Order cancelled - Patient discharged Performed By: #### L 100.0500, L500.2500 ####[facility] [address] [place], [address] MCHC Normal 32-36 [facility] Comment on above: Result Comment: Canc elled via OM: Order cancelled - Patient discharged Performed By: #### L 100.0500, L500.2500 ####[facility] [address] [place], [address] MCV Normal 80-94 [facility] Comment on above: Result Comment: Canc elled via OM: Order cancelled - Patient discharged Performed By: #### L 100.0500, L500.2500 ####[facility] [address] [place], [address] PLT Normal 150-450 [facility] Comment on above: Result Comment: Canc elled via OM: Order cancelled - Patient discharged Performed By: #### L 100.0500, L500.2500 ####[facility] [address] [place], [address] RBC Normal 4.6-6.2 [facility] Comment on above: Result Comment: Canc elled via OM: Order cancelled - Patient discharged Performed By: #### L 100.0500, L500.2500 ####[facility] [address] [place], [address] RDW CV Normal 11.6-14.6 [facility] Comment on above: Result Comment: Canc elled via OM: Order cancelled - Patient discharged Performed By: #### L 100.0500, L500.2500 ####[facility] [address] [place], [address] RDW SD Normal 35.1-43.9 [facility] Comment on above: Result Comment: Canc elled via OM: Order cancelled - Patient discharged Performed By: #### L 100.0500, L500.2500 ####[facility] [address] [place], [address] WBC Normal 4.4-11.0 [facility] Comment on above: Result Comment: Canc elled via OM: Order cancelled - Patient discharged Performed By: #### L 100.0500, L500.2500 ####[facility] [address] [place], [address] Basic Metabolic Profile (BMP )on 06-21-2024 BUN Normal 4-19 [facility] Comment on above: Result Comment: Canc elled via OM: Order cancelled - Patient discharged Performed By: #### L 500.2500, L100.0500 ####[facility] [address] [place], [address] BUN/CRE Normal 10-20 [facility] Comment on above: Result Comment: Canc elled via OM: Order cancelled - Patient discharged Performed By: #### L 500.2500, L100.0500 ####[facility] [address] [place], [address] Calcium Normal 7.6-11.0 [facility] Comment on above: Result Comment: Canc elled via OM: Order cancelled - Patient discharged Performed By: #### L 500.2500, L100.0500 ####[facility] [address] [place], [address] CL Normal 98-108 [facility] Comment on above: Result Comment: Canc elled via OM: Order cancelled - Patient discharged Performed By: #### L 500.2500, L100.0500 ####[facility] [address] [place], [address] CO2 Normal 21.0-32.0 [facility] Comment on above: Result Comment: Canc elled via OM: Order cancelled - Patient discharged Performed By: #### L 500.2500, L100.0500 ####[facility] [address] [place], [address] CREAT,SERUM Normal 0.70-1.20 [facility] Comment on above: Result Comment: Canc elled via OM: Order cancelled - Patient discharged Performed By: #### L 500.2500, L100.0500 ####[facility] [address] [place], [address] eGFR Normal >60 [facility] Comment on above: Result Comment: Canc elled via OM: Order cancelled - Patient discharged Performed By: #### L 500.2500, L100.0500 ####[facility] [address] [place], [address] GAP Normal 5-15 [facility] Comment on above: Result Comment: Canc elled via OM: Order cancelled - Patient discharged Performed By: #### L 500.2500, L100.0500 ####[facility] [address] [place], [address] GLU Normal 70-99 [facility] Comment on above: Result Comment: Canc elled via OM: Order cancelled - Patient discharged Performed By: #### L 500.2500, L100.0500 ####[facility] [address] [place], [address] Potassium Normal 3.3-5.1 [facility] Comment on above: Result Comment: Canc elled via OM: Order cancelled - Patient discharged Performed By: #### L 500.2500, L100.0500 ####[facility] [address] [place], [address] Basic Metabolic Profile (BMP) Normal 133-145 [facility] Comment on above: Result Comment: Canc elled via OM: Order cancelled - Patient discharged Performed By: #### L 500.2500, L100.0500 ####[facility] [address] [place], [address] CBC-Complete Blood Cnt No Di ffon 06-21-2024 HCT Normal 40-54 [facility] Comment on above: Result Comment: Canc elled via OM: Order cancelled - Patient discharged Performed By: #### L 500.2500, L100.0500 ####[facility] [address] [place], [address] HGB Normal 13.0-16.5 [facility] Comment on above: Result Comment: Canc elled via OM: Order cancelled - Patient discharged Performed By: #### L 500.2500, L100.0500 ####[facility] [address] [place], [address] MCH Normal 27.0-32.0 [facility] Comment on above: Result Comment: Canc elled via OM: Order cancelled - Patient discharged Performed By: #### L 500.2500, L100.0500 ####[facility] [address] [place], [address] MCHC Normal 32-36 [facility] Comment on above: Result Comment: Canc elled via OM: Order cancelled - Patient discharged Performed By: #### L 500.2500, L100.0500 ####[facility] [address] [place], [address] MCV Normal 80-94 [facility] Comment on above: Result Comment: Canc elled via OM: Order cancelled - Patient discharged Performed By: #### L 500.2500, L100.0500 ####[facility] [address] [place], [address] PLT Normal 150-450 [facility] Comment on above: Result Comment: Canc elled via OM: Order cancelled - Patient discharged Performed By: #### L 500.2500, L100.0500 ####[facility] [address] [place], [address] RBC Normal 4.6-6.2 [facility] Comment on above: Result Comment: Canc elled via OM: Order cancelled - Patient discharged Performed By: #### L 500.2500, L100.0500 ####[facility] [address] [place], [address] RDW CV Normal 11.6-14.6 [facility] Comment on above: Result Comment: Canc elled via OM: Order cancelled - Patient discharged Performed By: #### L 500.2500, L100.0500 ####[facility] [address] [place], [address] RDW SD Normal 35.1-43.9 [facility] Comment on above: Result Comment: Canc elled via OM: Order cancelled - Patient discharged Performed By: #### L 500.2500, L100.0500 ####[facility] [address] [place], [address] WBC Normal 4.4-11.0 [facility] Comment on above: Result Comment: Canc elled via OM: Order cancelled - Patient discharged Performed By: #### L 500.2500, L100.0500 ####[facility] [address] [place], [address] Anion gap in Serum or Plasma Ordered By: Donna Wolff on 06-20-2024 Anion gap [Moles/Vol] 14 mmol/L 5-15 [facility] BUN/creatinine ratioOrdered By: Donna Wolff on 06-20-2024 Urea nitrogen/Creatinine [Mass ratio] 27.2 mg/mg High 10-20 [facility] Basic Metabolic Profile (BMP )on 06-20-2024 BUN/CRE 27.2 RATIO High -20 [facility] Comment on above: Performed By: #### L 500.2500, L100.0500 ####[facility] [address] [place], [address] Calcium [Mass/Vol] 9.5 mg/dL Normal 7.6-11.0 [facility] Comment on above: Performed By: #### L 500.2500, L100.0500 ####[facility] [address] [place], [address] Chloride [Moles/Vol] 100 mmol/L Normal 98-108 [facility] Comment on above: Performed By: #### L 500.2500, L100.0500 ####[facility] [address] [place], [address] CO2 [Moles/Vol] 24.8 mmol/L Normal 21.0-32.0 [facility] Comment on above: Performed By: #### L 500.2500, L100.0500 ####[facility] [address] [place], [address] Creatinine [Mass/Vol] 1.07 mg/dL Normal 0.70-1.20 [facility] Comment on above: Performed By: #### L 500.2500, L100.0500 ####[facility] [address] [place], [address] ECRCL 74.28 ml/min Normal 50-250 [facility] Comment on above: Performed By: #### L 500.2500, L100.0500 ####[facility] [address] [place], [address] GAP 14 Normal 5-15 [facility] Comment on above: Performed By: #### L 500.2500, L100.0500 ####[facility] [address] [place], [address] GFR/1.73 sq M.predicted among non-blacks MDRD (S/P/Bld) [Vol rate/Area] 77 mL/min/{1.73_m2} Normal >60 [facility] Comment on above: Result Comment: mL/m in/1.73m2 CKD-EPI Creatinine Equation (2020) Performed By: #### L 500.2500, L100.0500 ####[facility] [address] [place], [address] Glucose [Mass/Vol] 110 mg/dL High 70-99 [facility] Comment on above: Performed By: #### L 500.2500, L100.0500 ####[facility] [address] [place], [address] Potassium [Moles/Vol] 3.8 mmol/L Normal 3.3-5.1 [facility] Comment on above: Performed By: #### L 500.2500, L100.0500 ####[facility] [address] [place], [address] Sodium [Moles/Vol] 138 mmol/L Normal 133-145 [facility] Comment on above: Performed By: #### L 500.2500, L100.0500 ####[facility] [address] [place], [address] Urea nitrogen [Mass/Vol] 29 mg/dL High 4-19 [facility] Comment on above: Performed By: #### L 500.2500, L100.0500 ####[facility] [address] [place], [address] Bedside Glucoseon 06-20-2024 FINGERSTICK GLU 127 mg/dL High 74-106 [facility] Comment on above: Result Comment: SNEHA DUNCAN OF PATIENT CARE PER NURSING PROTOCOL Performed By: #### L 501.080 ####[facility] [address] [place], [address] CBC-Complete Blood Cnt No Di ffon 06-20-2024 Erythrocyte distribution width (RBC) [Ratio] 13.0 % Normal 11.6-14.6 [facility] Comment on above: Performed By: #### L 500.2500, L100.0500 ####[facility] [address] [place], [address] Hematocrit (Bld) [Volume fraction] 50.5 % Normal 40-54 [facility] Comment on above: Performed By: #### L 500.2500, L100.0500 ####[facility] [address] [place], [address] Hemoglobin (Bld) [Mass/Vol] 16.8 g/dL High 13.0-16.5 [facility] Comment on above: Performed By: #### L 500.2500, L100.0500 ####[facility] [address] [place], [address] MCH (RBC) [Entitic mass] 30.8 pg Normal 27.0-32.0 [facility] Comment on above: Performed By: #### L 500.2500, L100.0500 ####[facility] [address] [place], [address] MCHC (RBC) [Mass/Vol] 33.3 g/dL Normal 32-36 [facility] Comment on above: Performed By: #### L 500.2500, L100.0500 ####[facility] [address] [place], [address] MCV (RBC) [Entitic vol] 92.5 fL Normal 80-94 [facility] Comment on above: Performed By: #### L 500.2500, L100.0500 ####[facility] [address] [place], [address] Platelet mean volume (Bld) [Entitic vol] 10.1 fL Normal 6.2-12.0 [facility] Comment on above: Performed By: #### L 500.2500, L100.0500 ####[facility] [address] [place], [address] Platelets (Bld) [#/Vol] 295 10*3/uL Normal 150-450 [facility] Comment on above: Performed By: #### L 500.2500, L100.0500 ####[facility] [address] [place], [address] RBC (Bld) [#/Vol] 5.46 10*6/uL Normal 4.6-6.2 [facility] Comment on above: Performed By: #### L 500.2500, L100.0500 ####[facility] [address] [place], [address] RDW SD 43.8 fl Normal 35.1-43.9 [facility] Comment on above: Performed By: #### L 500.2500, L100.0500 ####[facility] [address] [place], [address] WBC (Bld) [#/Vol] 14.2 10*3/uL High 4.4-11.0 [facility] Comment on above: Performed By: #### L 500.2500, L100.0500 ####[facility] [address] [place], [address] Carbon dioxide, total [Moles /volume] in Central venous bloodOrdered By: Donna Wolff on 06-20-2024 CO2 [Moles/Vol] 24.8 mmol/L 21.0-32.0 [facility] Chloride assayOrdered By: Nilson Wolff on 06-20-2024 Chloride [Moles/Vol] 100 mmol/L 98-108 [facility] Discharge Instructionon 06-04 Discharge Instruction Normal [facility] Erythrocyte distribution wid th ratioOrdered By: Donna Wolff on 06-20-2024 Erythrocyte distribution width (RBC) [Ratio] 13.0 % 11.6-14.6 [facility] Erythrocyte distribution wid th standard deviationOrdered By: Donna Wolff on 06-20-2024 Erythrocyte distribution width (RBC) [Ratio] 43.8 fl 35.1-43.9 [facility] Glomerular filtration rate ( GFR) estimation/1.73 sq m using serum, plasma, or whole bOrdered By: Donna Wolff on 06-20-2024 GFR/1.73 sq M.predicted among non-blacks MDRD (S/P/Bld) [Vol rate/Area] 77 mL/min/{1.73_m2} >60 [facility] By: Donna Wolff on 06-20-2024 Glucose [Mass/Vol] 127 mg/dL High 74-106 [facility] Hematocrit Auto (Bld) [Volum e fraction]Ordered By: Donna Wolff on 06-20-2024 Hematocrit (Bld) [Volume fraction] 50.5 % 40-54 [facility] Hemoglobin measurementOrdere d By: Donna Wolff on 06-20-2024 Hemoglobin (Bld) [Mass/Vol] 16.8 g/dL High 13.0-16.5 [facility] MCV (mean corpuscular volume ) determinationOrdered By: Donna Wolff on 06-20-2024 MCV (RBC) [Entitic vol] 92.5 fL 80-94 [facility] Mean corpuscular hemoglobin (MCH) determinationOrdered By: Donna Wolff on 06-20-2024 MCH (RBC) [Entitic mass] 30.8 pg 27.0-32.0 [facility] Platelet countOrdered By: Nilson Wolff on 06-20-2024 Platelets (Bld) [#/Vol] 295 10*3/uL 150-450 [facility] Potassium measurement (mass/ volume)Ordered By: Donna Wolff on 06-20-2024 Potassium (Unsp spec) [Mass/Vol] 3.8 mmol/L 3.3-5.1 [facility] RBC Auto (Bld) [#/Vol]Ordere d By: Donna Wolff on 06-20-2024 RBC (Bld) [#/Vol] 5.46 10*6/uL 4.6-6.2 [facility] Serum creatinine measurement (mass/volume)Ordered By: Donna Wolff on 06-20-2024 Creatinine [Mass/Vol] 1.07 mg/dL 0.70-1.20 [facility] Serum glucose measurement (m ass/volume)Ordered By: Donna Wolff on 06-20-2024 Glucose [Mass/Vol] 110 mg/dL High 70-99 [facility] Serum or plasma calcium brenda urement (mass/volume)Ordered By: Donna Wolff on 06-20-2024 Calcium [Mass/Vol] 9.5 mg/dL 7.6-11.0 [facility] Serum or plasma urea nitroge n measurement (mass/volume)Ordered By: Donna Wolff on 06-20-2024 Urea nitrogen [Mass/Vol] 29 mg/dL High 4-19 [facility] Sodium levelOrdered By: Gretta Wolff on 06-20-2024 Sodium [Moles/Vol] 138 mmol/L 133-145 [facility] Stress Reporton 06-20-2024 Stress Report Normal [facility] White blood cell (WBC) count Ordered By: Donna Wolff on 06-20-2024 WBC (Bld) [#/Vol] 14.2 10*3/uL High 4.4-11.0 [facility] Absolute lymphocyte countOrd ered By: Steve Donald on 06-19-2024 Lymphocytes Auto (Unsp spec) [#/Vol] 1.12 10*3/uL 0.83-4.51 [facility] Automated lymphocyte count a s percentage of total leukocytesOrdered By: Steve Donald on 06-19-2024 Lymphocytes/100 WBC Auto (Unsp spec) 9.8 % Low 19-41 [facility] Basophil percentageOrdered B y: Steve Donald on 06-19-2024 Basophils/100 WBC (Bld) 0.1 % 0-1 [facility] Bedside Glucoseon 06-19-2024 FINGERSTICK GLU 220 mg/dL High [address] [facility] Comment on above: Result Comment: SNEHA GEMENT OF PATIENT CARE PER NURSING PROTOCOL Performed By: #### L 501.080 ####[facility] [address] [place], [address] FINGERSTICK GLU 431 mg/dL High [address] [place] [address] Comment on above: Result Comment: SNEHA GEMENT OF PATIENT CARE PER NURSING PROTOCOL Performed By: #### L 501.080 ####[facility] [address] [place], [address] FINGERSTICK GLU 387 mg/dL High [address] [place] [address] Comment on above: Result Comment: SNEHA GEMENT OF PATIENT CARE PER NURSING PROTOCOL Performed By: #### L 501.080 ####[facility] [address] [place], [address] FINGERSTICK GLU 292 mg/dL High [address] [place] [address] Comment on above: Result Comment: SNEHA GEMENT OF PATIENT CARE PER NURSING PROTOCOL Performed By: #### L 501.080 ####[facility] [address] [place], [address] Bilirubin, totalOrdered By: Steve Donald on 06-19-2024 Bilirubin [Mass/Vol] 0.63 mg/dL 0.00-1.30 [facility] CBC W/Diff, Automatedon 06-04 Absolute Lymph 1.12 X10 3/uL Normal 0.83-4.51 [facility] Comment on above: Performed By: #### L 500.4050, L501.2300, L501.9985, L100.0100 ####[facility] [address] [place], [address] Absolute Neut 9.8 X10 3/uL High 2.0-7.7 [facility] Comment on above: Performed By: #### L 500.4050, L501.2300, L501.9985, L100.0100 ####[facility] [address] [place], [address] Basophils/100 WBC (Bld) 0.1 % Normal 0-1 [facility] Comment on above: Performed By: #### L 500.4050, L501.2300, L501.9985, L100.0100 ####[facility] [address] [place], [address] Eosinophils/100 WBC (Bld) 0.0 % Normal 0-5 [facility] Comment on above: Performed By: #### L 500.4050, L501.2300, L501.9985, L100.0100 ####[facility] [address] [place], [address] Erythrocyte distribution width (RBC) [Ratio] 12.8 % Normal 11.6-14.6 [facility] Comment on above: Performed By: #### L 500.4050, L501.2300, L501.9985, L100.0100 ####[facility] [address] [place], [address] Hematocrit (Bld) [Volume fraction] 49.9 % Normal 40-54 [facility] Comment on above: Performed By: #### L 500.4050, L501.2300, L501.9985, L100.0100 ####[facility] [address] [place], [address] Hemoglobin (Bld) [Mass/Vol] 16.8 g/dL High 13.0-16.5 [facility] Comment on above: Performed By: #### L 500.4050, L501.2300, L501.9985, L100.0100 ####[facility] [address] [place], [address] IG% 0.700 Normal 0.0-0.9 [facility] Comment on above: Result Comment: IG% - Immature Granulocytes (promyelocytes, myelocytes andmetamyelocytes) > 1% indicates that a LEFT SHIFT is Present. Performed By: #### L 500.4050, L501.2300, L501.9985, L100.0100 ####[facility] [address] [place], [address] Lymphocytes/100 WBC (Bld) 9.8 % Low 19-41 [facility] Comment on above: Performed By: #### L 500.4050, L501.2300, L501.9985, L100.0100 ####[facility] [address] [place], [address] MCH (RBC) [Entitic mass] 31.3 pg Normal 27.0-32.0 [facility] Comment on above: Performed By: #### L 500.4050, L501.2300, L501.9985, L100.0100 ####[facility] [address] [place], [address] MCHC (RBC) [Mass/Vol] 33.7 g/dL Normal 32-36 [facility] Comment on above: Performed By: #### L 500.4050, L501.2300, L501.9985, L100.0100 ####[facility] [address] [place], [address] MCV (RBC) [Entitic vol] 92.9 fL Normal 80-94 [facility] Comment on above: Performed By: #### L 500.4050, L501.2300, L501.9985, L100.0100 ####[facility] [address] [place], [address] Monocytes/100 WBC (Bld) 3.2 % Normal 0-10 [facility] Comment on above: Performed By: #### L 500.4050, L501.2300, L501.9985, L100.0100 ####[facility] [address] [place], [address] Neutrophils/100 WBC (Bld) 86.2 % High 47-70 [facility] Comment on above: Performed By: #### L 500.4050, L501.2300, L501.9985, L100.0100 ####[facility] [address] [place], [address] Nucleated RBC (Bld) [#/Vol] 0 10*3/uL Normal 0-5 [facility] Comment on above: Performed By: #### L 500.4050, L501.2300, L501.9985, L100.0100 ####[facility] [address] [place], [address] Platelet mean volume (Bld) [Entitic vol] 10.4 fL Normal 6.2-12.0 [facility] Comment on above: Performed By: #### L 500.4050, L501.2300, L501.9985, L100.0100 ####[facility] [address] [place], [address] Platelets (Bld) [#/Vol] 290 10*3/uL Normal 150-450 [facility] Comment on above: Performed By: #### L 500.4050, L501.2300, L501.9985, L100.0100 ####[facility] [address] [place], [address] RBC (Bld) [#/Vol] 5.37 10*6/uL Normal 4.6-6.2 [facility] Comment on above: Performed By: #### L 500.4050, L501.2300, L501.9985, L100.0100 ####[facility] [address] [place], [address] RDW SD 43.8 fl Normal 35.1-43.9 [facility] Comment on above: Performed By: #### L 500.4050, L501.2300, L501.9985, L100.0100 ####[facility] [address] [place], [address] WBC (Bld) [#/Vol] 11.4 10*3/uL High 4.4-11.0 [facility] Comment on above: Performed By: #### L 500.4050, L501.2300, L501.9985, L100.0100 ####[facility] [address] [place], [address] Chest 1 View (Portable)on Chest 1 View (Portable) Normal [facility] Comprehensive Metabolic Prof ilon 06-19-2024 GAP 17 High 5-15 [facility] Comment on above: Performed By: #### L 500.4050, L501.2300, L501.9985, L100.0100 ####[facility] [address] [place], [address] Albumin [Mass/Vol] 4.1 g/dL Normal 3.4-4.8 [facility] Comment on above: Performed By: #### L 500.4050, L501.2300, L501.9985, L100.0100 ####[facility] [address] [place], [address] Albumin/Globulin [Mass ratio] 1.2 {ratio} Normal 0.9-2.4 [facility] Comment on above: Performed By: #### L 500.4050, L501.2300, L501.9985, L100.0100 ####[facility] [address] [place], [address] ALK PHOS 89 U/L Normal 40-129 [facility] Comment on above: Performed By: #### L 500.4050, L501.2300, L501.9985, L100.0100 ####[facility] [address] [place], [address] ALT [Catalytic activity/Vol] 38 U/L Normal <=46 [facility] Comment on above: Performed By: #### L 500.4050, L501.2300, L501.9985, L100.0100 ####[facility] [address] [place], [address] AST [Catalytic activity/Vol] 26 U/L Normal <=37 [facility] Comment on above: Performed By: #### L 500.4050, L501.2300, L501.9985, L100.0100 ####[facility] [address] [place], [address] Bilirubin [Mass/Vol] 0.63 mg/dL Normal 0.00-1.30 [facility] Comment on above: Performed By: #### L 500.4050, L501.2300, L501.9985, L100.0100 ####[facility] [address] [place], [address] BUN/CRE 24.5 RATIO High 10-20 [facility] Comment on above: Performed By: #### L 500.4050, L501.2300, L501.9985, L100.0100 ####[facility] [address] [place], [address] Calcium [Mass/Vol] 9.6 mg/dL Normal 7.6-11.0 [facility] Comment on above: Performed By: #### L 500.4050, L501.2300, L501.9985, L100.0100 ####[facility] [address] [place], [address] Chloride [Moles/Vol] 97 mmol/L Low 98-108 [facility] Comment on above: Performed By: #### L 500.4050, L501.2300, L501.9985, L100.0100 ####[facility] [address] [place], [address] CO2 [Moles/Vol] 19.8 mmol/L Low 21.0-32.0 [facility] Comment on above: Performed By: #### L 500.4050, L501.2300, L501.9985, L100.0100 ####[facility] [address] [place], [address] Creatinine [Mass/Vol] 1.12 mg/dL Normal 0.70-1.20 [facility] Comment on above: Performed By: #### L 500.4050, L501.2300, L501.9985, L100.0100 ####[facility] [address] [place], [address] ECRCL 70.97 ml/min Normal 50-250 [facility] Comment on above: Performed By: #### L 500.4050, L501.2300, L501.9985, L100.0100 ####[facility] [address] [place], [address] GFR/1.73 sq M.predicted among non-blacks MDRD (S/P/Bld) [Vol rate/Area] 73 mL/min/{1.73_m2} Normal >60 [facility] Comment on above: Result Comment: mL/m in/1.73m2 CKD-EPI Creatinine Equation (2020) Performed By: #### L 500.4050, L501.2300, L501.9985, L100.0100 ####[facility] [address] [place], [address] Globulin (S) [Mass/Vol] 3.5 g/dL Normal 2.2-4.2 [facility] Comment on above: Performed By: #### L 500.4050, L501.2300, L501.9985, L100.0100 ####[facility] [address] [place], [address] Glucose [Mass/Vol] 324 mg/dL High 70-99 [facility] Comment on above: Performed By: #### L 500.4050, L501.2300, L501.9985, L100.0100 ####[facility] [address] [place], [address] Potassium [Moles/Vol] 4.3 mmol/L Normal 3.3-5.1 [facility] Comment on above: Performed By: #### L 500.4050, L501.2300, L501.9985, L100.0100 ####[facility] [address] [place], [address] Sodium [Moles/Vol] 134 mmol/L Normal 133-145 [facility] Comment on above: Performed By: #### L 500.4050, L501.2300, L501.9985, L100.0100 ####[facility] [address] [place], [address] T PROT 7.6 g/dL Normal 5.9-8.4 [facility] Comment on above: Performed By: #### L 500.4050, L501.2300, L501.9985, L100.0100 ####[facility] [address] [place], [address] Urea nitrogen [Mass/Vol] 27 mg/dL High 4-19 [facility] Comment on above: Performed By: #### L 500.4050, L501.2300, L501.9985, L100.0100 ####[facility] [address] [place], [address] Eosinophil percentageOrdered By: Steve Donald on 06-19-2024 Eosinophils/100 WBC (Bld) 0.0 % 0-5 [facility] Hemoglobin A1con 06-19-2024 HbA1c (Bld) [Mass fraction] 12.4 % Normal <=5.6 [facility] Comment on above: Performed By: #### L 500.4050, L501.2300, L501.9985, L100.0100 ####[facility] [address] [place], [address] Hemoglobin A1c percentageOrd ered By: Steve Donald on 06-19-2024 HbA1c (Bld) [Mass fraction] 12.4 % >5.7 [facility] Immature granulocytes/100 WB C Auto (Bld)Ordered By: Steve Donald on 06-19-2024 Immature granulocytes/100 WBC (Bld) 0.700 % 0.0-0.9 [facility] Monocyte percentageOrdered B y: Steve Donald on 06-19-2024 Monocytes/100 WBC (Bld) 3.2 % 0-10 [facility] Neutrophil percentageOrdered By: Steve Donald on 06-19-2024 Neutrophils/100 WBC (Bld) 86.2 % High 47-70 [facility] No Panel InformationOrdered By: Steve Donald on 06-19-2024 26 U/L <38 [facility] Phosphoruson 06-19-2024 Phosphate [Mass/Vol] 4.4 mg/dL Normal 2.7-4.5 [facility] Comment on above: Performed By: #### L 500.4050, L501.2300, L501.9985, L100.0100 ####[facility] [address] [place], [place], [address] Serum globulin measurementOr dered By: Steve Donald on 06-19-2024 Globulin (S) [Mass/Vol] 3.5 g/dL 2.2-4.2 [facility] Serum or plasma alanine martino otransferase (ALT) measurementOrdered By: Steve Donald on 06-19-2024 ALT [Catalytic activity/Vol] 38 U/L <47 [facility] Serum or plasma albumin brenda urement (mass/volume)Ordered By: Steve Donald on 06-19-2024 Albumin [Mass/Vol] 4.1 g/dL 3.4-4.8 [facility] Serum or plasma albumin/glob ulin mass ratioOrdered By: Steve Donald on 06-19-2024 Albumin/Globulin [Mass ratio] 1.2 {ratio} 0.9-2.4 [facility] Serum or plasma alkaline yulia sphatase measurementOrdered By: Steve Donald on 06-19-2024 ALP [Catalytic activity/Vol] 89 U/L 40-129 [facility] Total proteinOrdered By: Sidney Donald on 06-19-2024 Protein [Mass/Vol] 7.6 g/dL 5.9-8.4 [facility] Assessment of wrist artery p atency prior to arterial punctureOrdered By: Steve Donald on 06-18-2024 Arterial patency Wrist artery --pre arterial puncture Positive [facility] Bedside Glucoseon 06-18-2024 FINGERSTICK GLU 434 mg/dL High 74-106 [facility] Comment on above: Result Comment: SNEHA DUNCAN OF PATIENT CARE PER NURSING PROTOCOL Performed By: #### L 501.080 ####[facility] [address] [place], [place], [id number] FINGERSTICK GLU 429 mg/dL High 74-106 [facility] Comment on above: Result Comment: Dr Manjit solis FollowedMANAGEMENT OF PATIENT CARE PER NURSING PROTOCOL Performed By: #### L 501.080 ####[facility] [address] [place], [address] FINGERSTICK GLU 321 mg/dL High 74-106 [facility] Comment on above: Result Comment: SNEHA GEMTM OF PATIENT CARE PER NURSING PROTOCOL Performed By: #### L 501.080 ####[facility] [address] [place], [address] FINGERSTICK GLU 282 mg/dL High 74-106 [facility] Comment on above: Result Comment: SNEHA GEMENT OF PATIENT CARE PER NURSING PROTOCOL Performed By: #### L 501.080 ####[facility] [address] [place], [address] Bilirubin Test strip Ql (U)O rdered By: Steve Donald on 06-18-2024 Bilirubin Ql (U) Negative Negative [facility] Blood Gases by CPSon 025 MOY TEST Positive Normal [facility] Comment on above: Performed By: #### L 9000.0800 ####[facility] [address] [place], [address] Base excess Calc (Bld) [Moles/Vol] 2 mmol/L Normal -2 to +2 [facility] Comment on above: Performed By: #### L 9000.0800 ####[facility] [address] [place], [address] Blood Gas Type ART Normal [facility] Comment on above: Performed By: #### L 9000.0800 ####[facility] [address] [place], [address] CO2 [Moles/Vol] 28 mmol/L Normal [facility] Comment on above: Performed By: #### L 9000.0800 ####[facility] [address] [place], [address] Comment 17/11 12 30% Normal [facility] Comment on above: Performed By: #### L 9000.0800 ####[facility] [address] [place], [address] FI02 30.0 Normal [facility] Comment on above: Performed By: #### L 9000.0800 ####[facility] [address] [place], [address] HCO3 (Bld) [Moles/Vol] 26.7 mmol/L High 22-26 [facility] Comment on above: Performed By: #### L 9000.0800 ####[facility] [address] [place], [address] Mode Not entered Normal [facility] Comment on above: Performed By: #### L 9000.0800 ####[facility] [address] [place], [address] O2 Delivery Dev BiPAP Normal [facility] Comment on above: Performed By: #### L 9000.0800 ####[facility] [address] [place], [address] pCO2 41.5 mmHg Normal 35-45 [facility] Comment on above: Performed By: #### L 9000.0800 ####[facility] [address] [place], [address] pH (Bld) 7.42 [pH] Normal 7.35-7.45 [facility] Comment on above: Performed By: #### L 9000.0800 ####[facility] [address] [place], [address] PO2 73 mmHG Low 75-100 [facility] Comment on above: Performed By: #### L 9000.0800 ####[facility] [address] [place], [address] SITE R Radial Normal [facility] Comment on above: Performed By: #### L 9000.0800 ####[facility] [address] [place], [place], [id number] SO2 95 Normal 95-99 [facility] Comment on above: Performed By: #### L 9000.0800 ####[facility] [address] [place], [place], [address] Blood base excess determinat ionOrdered By: Steve Donald on 06-18-2024 Base excess Calc (BldV) [Moles/Vol] 2 mmol/L -2-2 [facility] Blood bicarbonate measuremen tOrdered By: Steve Donald on 06-18-2024 HCO3 (Bld) [Moles/Vol] 26.7 mmol/L High 22-26 [facility] CTA Chest W/WO Contraston CTA Chest W/WO Contrast Normal [facility] Consultation - Cardiologyon 06-18-2024 Consultation - Cardiology Normal [facility] Echo Complete W/ Contraston 06-18-2024 Echo Complete W/ Contrast Normal [facility] Emergency Department Summary on 06-18-2024 Emergency Department Summary Normal [facility] H AND P Exam - Hospitaliston 06-18-2024 H&P Exam - Hospitalist Normal [facility] Influenza virus A and B and SARS-CoV-2 (COVID-19) and Respiratory syncytial virus RNAOrdered By: Jevon Osorio on 06-18-2024 SARS-CoV-2 (COVID-19) RNA HAYDER+probe Ql (Unsp spec) [facility] Ketones Test strip Ql (U)Ord ered By: Steve Donald on 06-18-2024 Ketones Ql (U) Negative Negative [facility] L499.0042on 06-18-2024 Trop T High Sen 84 ng/L Invalid Interpretation Code <=22 [facility] Comment on above: Result Comment: Crit ical Result(s) Called at: 0219 by:??NBURNS TO EFINKResults read back by same. Performed By: #### L 499.0042 ####[facility] [address] [place], [address] L499.0043on 06-18-2024 Trop T High Sen 88 ng/L Invalid Interpretation Code <=22 [facility] Comment on above: Result Comment: Crit ical Result(s) Called at 0334: by: NARAYAN LUIS??Results read back by same. Performed By: #### L 499.0043 ####[facility] [address] [place], [address] L503.7505on 06-18-2024 Natriuretic peptide B (Bld) [Mass/Vol] 2490 pg/mL High <=900 [facility] Comment on above: Result Comment: Hear t Failure Unlikely: < 300 pg/mLHeart Failure Likely< 50 Years: > 450 pg/mL50-75 Years: > 900 pg/mL>75 Years: > 1800 pg/mL Performed By: #### L 503.7505 ####[facility] [address] [place], [address] M100.678on 06-18-2024 M100.678 SARS-CoV-2 (COVID 19 ) Negative INFLUENZA A Negative INFLUENZA B Negative RSV PCR Negative Normal [facility] Comment on above: Performed By: #### M 100.678 ####[facility] [address] [place], [address] Magnesiumon 06-18-2024 Magnesium [Mass/Vol] 2.0 mg/dL Normal 1.5-2.2 [facility] Comment on above: Performed By: #### L 501.9520, L501.5200 ####[facility] [address] [place], [address] Magnesium measurement (mass/ volume)Ordered By: Steve Donald on 06-18-2024 Magnesium (Unsp spec) [Mass/Vol] 2.0 mg/dL 1.5-2.2 [facility] Measurement, pHOrdered By: Jovana Donald on 06-18-2024 pH (Unsp spec) 7.42 [pH] 7.35-7.45 [facility] Mucus LM Ql (Urine sed)Order ed By: Steve Donald on 06-18-2024 Mucus Ql (Urine sed) 0 SEEN /hpf [facility] Nitrite Test strip Ql (U)Ord ered By: Steve Donald on 06-18-2024 Nitrite Ql (U) Negative Negative [facility] No Panel InformationOrdered By: Steve Donald on 06-18-2024 ART [facility] R Radial [facility] Not entered [facility] BiPAP [facility] 17/11 12 30% [facility] Protein Test strip Ql (U)Ord ered By: Steve Donald on 06-18-2024 Protein Ql (U) Negative Negative [facility] RESPIRATORY PANEL MOLECULARo n 06-18-2024 RP PANEL Normal [facility] Comment on above: Performed By: #### M 100.638 ####[facility] [address] [place], [place], [id number] Respiratory pathogens detect ion panel by molecular detection methodOrdered By: Steve Donald on 06-18-2024 Respiratory pathogens DNA and RNA panel HAYDER+probe (Resp) [facility] Squamous epithelial cells de tection in urine sediment by light microscopyOrdered By: Steve Donald on 06-18-2024 Epithelial cells.squamous LM Ql (Urine sed) 0-5 SEEN /hpf 0-5 [facility] TSH DL <= 0.005 mIU/L QnOrde red By: Steve Donald on 06-18-2024 TSH Qn 0.897 uIU/mL 0.300-4.200 [facility] Thyroid Stim Hormone (TSH)on 06-18-2024 TSH 0.897 uIU/mL Normal 0.300-4.200 [facility] Comment on above: Performed By: #### L 501.9520, L501.5200 ####[facility] [address] [place], [address] Total carbon dioxide measure mentOrdered By: Steve Donald on 06-18-2024 CO2 [Moles/Vol] 28 mmol/L [facility] Troponin T.cardiac [Mass/vol ume] in Serum or Plasma by High sensitivity methodOrdered By: Jevon Osorio on 06-18-2024 Troponin T.cardiac High sensitivity method [Mass/Vol] 88 ng/L High <22 [facility] Troponin T.cardiac High sensitivity method [Mass/Vol] 84 ng/L High <22 [facility] Urinalysis, Completeon 06-18 BACTERIA RARE Normal None Seen [facility] Comment on above: Order Comment: CLEAN CATCH Performed By: #### L 400.0001 ####[facility] [address] [place], [address] EPI,SQUAMOUS 0-5 SEEN Normal 0-5 [facility] Comment on above: Order Comment: CLEAN CATCH Performed By: #### L 400.0001 ####[facility] [address] [facility] [address] RBC 0 SEEN Normal 0-5 [facility] Comment on above: Order Comment: CLEAN CATCH Performed By: #### L 400.0001 ####[facility] [address] [place], [address] WBC 0-5 SEEN Normal 0-5 [facility] Comment on above: Order Comment: CLEAN CATCH Performed By: #### L 400.0001 ####[facility] [address] [facility] [address] BILIRUBIN URINE Negative Normal Negative [facility] Comment on above: Order Comment: CLEAN CATCH Performed By: #### L 400.0001 ####[facility] [address] [place], [address] Clarity (U) Clear Normal Clear [facility] Comment on above: Order Comment: CLEAN CATCH Performed By: #### L 400.0001 ####[facility] [address] [place], [address] Color (U) Yellow Normal Yellow [facility] Comment on above: Order Comment: CLEAN CATCH Performed By: #### L 400.0001 ####[facility] [address] [place], [address] GLUCOSE, UR 1000 mg/dl Abnormal Normal [facility] Comment on above: Order Comment: CLEAN CATCH Performed By: #### L 400.0001 ####[facility] [address] [place], [address] KETONE UR Negative Normal Negative [facility] Comment on above: Order Comment: CLEAN CATCH Performed By: #### L 400.0001 ####[facility] [address] [place], [address] LEUK ESTERASE Negative Normal Negative [facility] Comment on above: Order Comment: CLEAN CATCH Performed By: #### L 400.0001 ####[facility] [address] [place], [address] Nitrite Ql (U) Negative Normal Negative [facility] Comment on above: Order Comment: CLEAN CATCH Performed By: #### L 400.0001 ####[facility] [address] [place], [address] OCCULT BLOOD-UR Negative Normal Negative [facility] Comment on above: Order Comment: CLEAN CATCH Performed By: #### L 400.0001 ####[facility] [address] [place], [address] pH UR 6.0 Normal 5.0 - 8.0 [facility] Comment on above: Order Comment: CLEAN CATCH Performed By: #### L 400.0001 ####[facility] [address] [place], [address] PROT DIPSTX Negative Normal Negative [facility] Comment on above: Order Comment: CLEAN CATCH Performed By: #### L 400.0001 ####[facility] [address] [place], [address] SP.GR. DIPSTX 1.010 Normal 1.002-1.030 [facility] Comment on above: Order Comment: CLEAN CATCH Performed By: #### L 400.0001 ####[facility] [address] [place], [address] UROBILI Normal Normal Normal [facility] Comment on above: Order Comment: CLEAN CATCH Performed By: #### L 400.0001 ####[facility] [address] [place], [address] Mucus Ql (Urine sed) 0 SEEN Normal [facility] Comment on above: Order Comment: CLEAN CATCH Performed By: #### L 400.0001 ####[facility] [address] [place], [place], [id number] Urine clarityOrdered By: Sideny Donald on 06-18-2024 Clarity (U) Clear Clear [facility] Urine color determinationOrd ered By: Steve Donald on 06-18-2024 Color (U) Yellow Yellow [facility] Urine glucose detectionOrder ed By: Steve Donald on 06-18-2024 Glucose Ql (U) 1000 mg/dl High Normal [facility] Urine leukocyte esterase det ection by dipstickOrdered By: Steve Donald on 06-18-2024 Leukocyte esterase Test strip Ql (U) Negative Negative [facility] Urine pHOrdered By: Steve caraballo on 06-18-2024 pH (U) 6.0 [pH] 5.0 - 8.0 [facility] Urine sediment bacteria coun t by microscopy (number/high power field)Ordered By: Steve Donald on 06-18-2024 Bacteria LM.HPF (Urine sed) [#/Area] RARE /hpf None Seen [facility] Urine specific gravity measu rementOrdered By: Steve Donald on 06-18-2024 Specific gravity (U) [Rel density] 1.010 1.002-1.030 [facility] Urine urobilinogen measureme ntOrdered By: Steve Donald on 06-18-2024 Urobilinogen Ql (U) Normal mg/dl Normal [facility] White blood cell countOrdere d By: Steve Donald on 06-18-2024 White blood cell count 0-5 SEEN /hpf 0-5 [facility] 12 Lead EKGon 06-17-2024 12 Lead EKG Normal [facility] Basic Metabolic Profile (BMP )on 06-17-2024 BUN/CRE 18.7 RATIO Normal 10-20 [facility] Comment on above: Performed By: #### L 100.0100, L500.2500, L501.4021 ####[facility] [address] [place], [address] Calcium [Mass/Vol] 9.4 mg/dL Normal 7.6-11.0 [facility] Comment on above: Performed By: #### L 100.0100, L500.2500, L501.4021 ####[facility] [address] [place], [address] Chloride [Moles/Vol] 100 mmol/L Normal 98-108 [facility] Comment on above: Performed By: #### L 100.0100, L500.2500, L501.4021 ####[facility] [address] [place], [address] CO2 [Moles/Vol] 21.0 mmol/L Normal 21.0-32.0 [facility] Comment on above: Performed By: #### L 100.0100, L500.2500, L501.4021 ####[facility] [address] [place], [address] Creatinine [Mass/Vol] 0.94 mg/dL Normal 0.70-1.20 [facility] Comment on above: Performed By: #### L 100.0100, L500.2500, L501.4021 ####[facility] [address] [place], [address] GAP 14 Normal 5-15 [facility] Comment on above: Performed By: #### L 100.0100, L500.2500, L501.4021 ####[facility] [address] [place], [address] GFR/1.73 sq M.predicted among non-blacks MDRD (S/P/Bld) [Vol rate/Area] 91 mL/min/{1.73_m2} Normal >60 [facility] Comment on above: Result Comment: mL/m in/1.73m2 CKD-EPI Creatinine Equation (2020) Performed By: #### L 100.0100, L500.2500, L501.4021 ####[facility] [address] [place], [address] Glucose [Mass/Vol] 438 mg/dL High 70-99 [facility] Comment on above: Performed By: #### L 100.0100, L500.2500, L501.4021 ####[facility] [address] [place], [address] Potassium [Moles/Vol] 4.5 mmol/L Normal 3.3-5.1 [facility] Comment on above: Performed By: #### L 100.0100, L500.2500, L501.4021 ####[facility] [address] [place], [address] Sodium [Moles/Vol] 134 mmol/L Normal 133-145 [facility] Comment on above: Performed By: #### L 100.0100, L500.2500, L501.4021 ####[facility] [address] [place], [address] Urea nitrogen [Mass/Vol] 18 mg/dL Normal 4-19 [facility] Comment on above: Performed By: #### L 100.0100, L500.2500, L501.4021 ####[facility] [address] [place], [address] CBC W/Diff, Automatedon 06-04 Absolute Lymph 2.17 X10 3/uL Normal 0.83-4.51 [facility] Comment on above: Performed By: #### L 100.0100, L500.2500, L501.4021 ####[facility] [address] [place], [address] Absolute Neut 2.9 X10 3/uL Normal 2.0-7.7 [facility] Comment on above: Performed By: #### L 100.0100, L500.2500, L501.4021 ####[facility] [address] [place], [address] Basophils/100 WBC (Bld) 0.3 % Normal 0-1 [facility] Comment on above: Performed By: #### L 100.0100, L500.2500, L501.4021 ####[facility] [address] [place], [address] Eosinophils/100 WBC (Bld) 2.2 % Normal 0-5 [facility] Comment on above: Performed By: #### L 100.0100, L500.2500, L501.4021 ####[facility] [address] [place], [address] Erythrocyte distribution width (RBC) [Ratio] 13.1 % Normal 11.6-14.6 [facility] Comment on above: Performed By: #### L 100.0100, L500.2500, L501.4021 ####[facility] [address] [place], [address] Hematocrit (Bld) [Volume fraction] 46.2 % Normal 40-54 [facility] Comment on above: Performed By: #### L 100.0100, L500.2500, L501.4021 ####[facility] [address] [place], [address] Hemoglobin (Bld) [Mass/Vol] 15.2 g/dL Normal 13.0-16.5 [facility] Comment on above: Performed By: #### L 100.0100, L500.2500, L501.4021 ####[facility] [address] [place], [address] IG% 0.200 Normal 0.0-0.9 [facility] Comment on above: Result Comment: IG% - Immature Granulocytes (promyelocytes, myelocytes andmetamyelocytes) > 1% indicates that a LEFT SHIFT is Present. Performed By: #### L 100.0100, L500.2500, L501.4021 ####[facility] [address] [place], [address] Lymphocytes/100 WBC (Bld) 37.2 % Normal 19-41 [facility] Comment on above: Performed By: #### L 100.0100, L500.2500, L501.4021 ####[facility] [address] [place], [address] MCH (RBC) [Entitic mass] 31.3 pg Normal 27.0-32.0 [facility] Comment on above: Performed By: #### L 100.0100, L500.2500, L501.4021 ####[facility] [address] [place], [address] MCHC (RBC) [Mass/Vol] 32.9 g/dL Normal 32-36 [facility] Comment on above: Performed By: #### L 100.0100, L500.2500, L501.4021 ####[facility] [address] [place], [address] MCV (RBC) [Entitic vol] 95.1 fL High 80-94 [facility] [facility] Comment on above: Performed By: #### L 100.0100, L500.2500, L501.4021 ####[facility] [address] [place], [address] Monocytes/100 WBC (Bld) 10.3 % High 0-10 [facility] Comment on above: Performed By: #### L 100.0100, L500.2500, L501.4021 ####[facility] [address] [place], [address] Neutrophils/100 WBC (Bld) 49.8 % Normal 47-70 [facility] Comment on above: Performed By: #### L 100.0100, L500.2500, L501.4021 ####[facility] [address] [place], [address] Nucleated RBC (Bld) [#/Vol] 0 10*3/uL Normal 0-5 [facility] Comment on above: Performed By: #### L 100.0100, L500.2500, L501.4021 ####[facility] [address] [place], [address] Platelet mean volume (Bld) [Entitic vol] 10.3 fL Normal 6.2-12.0 [facility] Comment on above: Performed By: #### L 100.0100, L500.2500, L501.4021 ####[facility] [address] [place], [address] Platelets (Bld) [#/Vol] 244 10*3/uL Normal 150-450 [facility] Comment on above: Performed By: #### L 100.0100, L500.2500, L501.4021 ####[facility] [address] [place], [address] RBC (Bld) [#/Vol] 4.86 10*6/uL Normal 4.6-6.2 [facility] Comment on above: Performed By: #### L 100.0100, L500.2500, L501.4021 ####[facility] [address] [place], [address] RDW SD 45.7 fl High 35.1-43.9 [facility] Comment on above: Performed By: #### L 100.0100, L500.2500, L501.4021 ####[facility] [address] [place], [address] WBC (Bld) [#/Vol] 5.8 10*3/uL Normal 4.4-11.0 [facility] Comment on above: Performed By: #### L 100.0100, L500.2500, L501.4021 ####[facility] [address] [place], [address] Chest 1 View (Portable)on Chest 1 View (Portable) Normal [facility] L501.4021on 06-17-2024 Trop T High Sen 76 ng/L Invalid Interpretation Code <=22 [facility] Comment on above: Result Comment: Crit ical Result(s) Called at: [id number] by: NARAYAN LAMBERT??Results read back by same. Performed By: #### L 100.0100, L500.2500, L501.4021 ####[facility] [address] [place], [address] No Panel InformationOrdered By: ED PROVIDER on 06-17-2024 76 ng/L High <22 [facility] No Panel InformationOrdered By: Jevon Osorio on 06-17-2024 2490 pg/mL High <900 [facility] Ankle Brachial Indexon 06-13 Ankle Brachial Index Normal [facility] Arterial Doppler ultrasound reportOrdered By: Saúl Flowers on 06-13-2024 Study report [facility] [address] [place] [address] US Art Duplex Unilat Lower Ext 06/13/24 1426 MR#: [id number] Acct: [id number] Name: ROBERTOJAYLEN Hannah Sr. Rep #:[id number] : 1960 [...] Performed By: Solange Pena, RDCS, RVT 06/13/24 4763 Date _ Saúl Flowers MD CC: NILSON Heck; Dr. Xiang Rogers, ~ Date Dictated: 06/13/24 1426 Date Transcribed: 06/13/241632 Head Of Operation And Logistics: Signed [facility] Work Phone: Arterial study reportOrdered By: Saúl Flowers on 06-13-2024 Noninvasive arteriosclerosis study report [facility] [place] [place] [address] Ankle Brachial Index 06/13/24 1351 MR#: [id number] Acct: [id number] Name: JAYLEN MEJIA . Rep #:[id number] [...] Dictated: 06/13/24 1351 Date Transcribed: 06/13/24 1630 Head Of Operation And Logistics: Signed [facility] Work Phone: US Art Duplex Unilat Lower E xton 06-13-2024 US Art Duplex Unilat Lower Ext Normal [facility] Chest 1 View (Portable)on Chest 1 View (Portable) Normal [facility] Emergency Department Summary on 05-21-2024 Emergency Department Summary Normal [facility] Influenza virus A and B and SARS-CoV-2 (COVID-19) and Respiratory syncytial virus RNAOrdered By: Saúl Aguilar on 05-21-2024 SARS-CoV-2 (COVID-19) RNA HAYDER+probe Ql (Unsp spec) [facility] M100.678on 05-21-2024 M100.678 SARS-CoV-2 (COVID 19 ) Negative INFLUENZA A Negative INFLUENZA B Negative RSV PCR Negative Normal [facility] Comment on above: Performed By: #### M 100678 ####[facility] [address] [place], [place], [address] MR/BMS.BVSon 05-17-2024 MR/BMS.BVS Normal [facility] Echo Complete W/ Contraston 05-09-2024 Echo Complete W/ Contrast Normal [facility] Internal Medicine Office Vis iton 05-03-2024 Internal Medicine Office Visit Normal [facility] Laboratory - Hematology and Cell countson 05-03-2024 HbA1c (Bld) [Mass fraction] 11.4 % High 4.2-6.3 [facility] ACT Activated Clotting Timeo n 04-20-2024 ACTk CLOT TIME 222 sec High 74-137 [facility] Comment on above: Performed By: #### L 9100.0100 ####[facility] [address] [place], [address] Activated clotting timeOrder ed By: Saúl Flowers on 04-20-2024 Activated Clotting Time 222 sec High 74-137 [facility] Basic Metabolic Profile (BMP )on 04-20-2024 BUN/CRE 15.1 RATIO Normal 10-20 [facility] Comment on above: Performed By: #### L 500.2500, L100.0500 ####[facility] [address] [place], [address] CA,Total 9.3 mg/dL Normal 8.5-10.1 [facility] Comment on above: Performed By: #### L 500.2500, L100.0500 ####[facility] [address] [place], [address] Chloride [Moles/Vol] 103 mmol/L Normal 98-107 [facility] Comment on above: Performed By: #### L 500.2500, L100.0500 ####[facility] [address] [place], [address] CO2 [Moles/Vol] 26.0 mmol/L Normal 21.0-32.0 [facility] Comment on above: Performed By: #### L 500.2500, L100.0500 ####[facility] [address] [place], [address] Creatinine [Mass/Vol] 1.06 mg/dL Normal 0.70-1.30 [facility] Comment on above: Result Comment: The validity of the calculated GFR GFRAA in patients over70 years has not been determined. Clinical correlation isessential. Performed By: #### L 500.2500, L100.0500 ####[facility] [address] [place], [address] ECRCL 78.67 ml/min Normal [facility] Comment on above: Performed By: #### L 500.2500, L100.0500 ####[facility] [address] [place], [address] EST GFR - AA 90 mL/min Normal >60 [facility] Comment on above: Result Comment: Afri can Fijian GFR Calc Performed By: #### L 500.2500, L100.0500 ####[facility] [address] [place], [address] GAP 6 Normal 5-15 [facility] Comment on above: Performed By: #### L 500.2500, L100.0500 ####[facility] [address] [place], [address] GFR/1.73 sq M.predicted among non-blacks MDRD (S/P/Bld) [Vol rate/Area] 75 mL/min/{1.73_m2} Normal >60 [facility] Comment on above: Result Comment: Non- GFR Calc Performed By: #### L 500.2500, L100.0500 ####[facility] [address] [place], [address] Glucose [Mass/Vol] 228 mg/dL High 74-106 [facility] Comment on above: Result Comment: Gluc ose result greater than or equal to 200 mg/dLsuggests DIABETES MELLITUS per A.D.A. criteria. Performed By: #### L 500.2500, L100.0500 ####[facility] [address] [place], [address] Potassium [Moles/Vol] 4.3 mmol/L Normal 3.5-5.1 [facility] Comment on above: Performed By: #### L 500.2500, L100.0500 ####[facility] [address] [place], [address] Sodium [Moles/Vol] 135 mmol/L Low 136-145 [facility] Comment on above: Performed By: #### L 500.2500, L100.0500 ####[facility] [address] [place], [address] Urea nitrogen [Mass/Vol] 16 mg/dL Normal 7-18 [facility] Comment on above: Performed By: #### L 500.2500, L100.0500 ####[facility] [address] [place], [address] Blood urea nitrogen (BUN)/cr eatinine ratioOrdered By: Saúl Flowers on 04-20-2024 Urea nitrogen/Creatinine [Mass ratio] 15.1 mg/mg 10-20 [facility] CBC-Complete Blood Cnt No Di ffon 04-20-2024 Erythrocyte distribution width (RBC) [Ratio] 12.9 % Normal 11.6-14.6 [facility] Comment on above: Performed By: #### L 500.2500, L100.0500 ####[facility] [address] [place], [address] Hematocrit (Bld) [Volume fraction] 52.2 % Normal 40-54 [facility] Comment on above: Performed By: #### L 500.2500, L100.0500 ####[facility] [address] [place], [address] Hemoglobin (Bld) [Mass/Vol] 17.8 g/dL High 13.0-16.5 [facility] Comment on above: Performed By: #### L 500.2500, L100.0500 ####[facility] [address] [place], [address] MCH (RBC) [Entitic mass] 31.7 pg Normal 27.0-32.0 [facility] Comment on above: Performed By: #### L 500.2500, L100.0500 ####[facility] [address] [place], [address] MCHC (RBC) [Mass/Vol] 34.1 g/dL Normal 32-36 [facility] Comment on above: Performed By: #### L 500.2500, L100.0500 ####[facility] [address] [place], [address] MCV (RBC) [Entitic vol] 92.9 fL Normal 80-94 [facility] Comment on above: Performed By: #### L 500.2500, L100.0500 ####[facility] [address] [place], [address] Platelet mean volume (Bld) [Entitic vol] 9.5 fL Normal 6.2-12.0 [facility] Comment on above: Performed By: #### L 500.2500, L100.0500 ####[facility] [address] [place], [address] Platelets (Bld) [#/Vol] 271 10*3/uL Normal 150-450 [facility] Comment on above: Performed By: #### L 500.2500, L100.0500 ####[facility] [address] [place], [address] RBC (Bld) [#/Vol] 5.62 10*6/uL Normal 4.6-6.2 [facility] Comment on above: Performed By: #### L 500.2500, L100.0500 ####[facility] [address] [place], [address] RDW SD 43.8 fl Normal 35.1-43.9 [facility] Comment on above: Performed By: #### L 500.2500, L100.0500 ####[facility] [address] [place], [address] WBC (Bld) [#/Vol] 8.5 10*3/uL Normal 4.4-11.0 [facility] Comment on above: Performed By: #### L 500.2500, L100.0500 ####[facility] [address] [place], [address] Carbon dioxide measurementOr dered By: Saúl Flowers on 04-20-2024 CO2 [Moles/Vol] 26.0 mmol/L 21.0-32.0 [facility] Chloride measurementOrdered By: Saúl Flowers on 04-20-2024 Chloride [Moles/Vol] 103 mmol/L 98-107 [facility] Erythrocyte distribution wid th ratioOrdered By: Saúl Flowers on 04-20-2024 Erythrocyte distribution width (RBC) [Ratio] 12.9 % 11.6-14.6 [facility] Erythrocyte distribution wid th standard deviationOrdered By: Saúl Flowers on 04-20-2024 Erythrocyte distribution width (RBC) [Entitic vol] 43.8 fL 35.1-43.9 [facility] Estimated glomerular filtrat ion rate (GFR) AmericanOrdered By: Saúl Flowers on 04-20-2024 Estimated GFR (MDRD) Amer 90 mL/min >60 [facility] Comment on above: GFR Calc Estimation of creatinine john aranceOrdered By: Saúl Flowers on 04-20-2024 Estimated Creatinine Clearance Calc 78.67 ml/min [facility] Glomerular filtration rate ( GFR) estimationOrdered By: Saúl Flowers on 04-20-2024 Estimated GFR (MDRD) Non-Af Amer 75 mL/min >60 [facility] Comment on above: Non- GFR Calc Glucose measurementOrdered B y: Saúl Flowers on 04-20-2024 Glucose [Mass/Vol] 228 mg/dL High 74-106 [facility] Comment on above: Glucose result great er than or equal to 200 mg/dLsuggests DIABETES MELLITUS per A.D.A. criteria. Hematocrit Auto (Bld) [Volum e fraction]Ordered By: Saúl Flowers on 04-20-2024 Hematocrit (Bld) [Volume fraction] 52.2 % 40-54 [facility] Hemoglobin measurementOrdere d By: Saúl Flowers on 04-20-2024 Hemoglobin (Bld) [Mass/Vol] 17.8 g/dL High 13.0-16.5 [facility] MCV (mean corpuscular volume ) determinationOrdered By: Saúl Flowers on 04-20-2024 MCV (RBC) [Entitic vol] 92.9 fL 80-94 [facility] Mean corpuscular hemoglobin (MCH) determinationOrdered By: Saúl Flowers on 04-20-2024 MCH (RBC) [Entitic mass] 31.7 pg 27.0-32.0 [facility] Mean corpuscular hemoglobin concentration (MCHC) determinationOrdered By: Saúl Flowers on 04-20-2024 MCHC (RBC) [Mass/Vol] 34.1 g/dL 32-36 [facility] Mean platelet volume determi nationOrdered By: Saúl Flowers on 04-20-2024 Platelet mean volume (Bld) [Entitic vol] 9.5 fL 6.2-12.0 [facility] Operative Reporton Operative Report Normal [facility] Platelet countOrdered By: Chacho Flowers on 04-20-2024 Platelets (Bld) [#/Vol] 271 10*3/uL 150-450 [facility] Potassium measurementOrdered By: Saúl Flowers on 04-20-2024 Potassium [Moles/Vol] 4.3 mmol/L 3.5-5.1 [facility] RBC Auto (Bld) [#/Vol]Ordere d By: Saúl Flowers on 04-20-2024 RBC (Bld) [#/Vol] 5.62 10*6/uL 4.6-6.2 [facility] Serum anion gap measurementO rdered By: Saúl Flowers on 04-20-2024 Anion gap [Moles/Vol] 6 mmol/L - [facility] Serum or plasma calcium brenda urement (mass/volume)Ordered By: Saúl Flowers on 04-20-2024 Calcium [Mass/Vol] 9.3 mg/dL 8.5-10.1 [facility] Serum or plasma creatinine m easurement (mass/volume)Ordered By: Saúl Flowers on 04-20-2024 Creatinine [Mass/Vol] 1.06 mg/dL 0.70-1.30 [facility] Comment on above: The validity of the calculated GFR & GFRAA in patients over 70 years has not been determined. Clinical correlation is essential. Serum or plasma urea nitroge n measurement (mass/volume)Ordered By: Saúl Flowers on 04-20-2024 Urea nitrogen [Mass/Vol] 16 mg/dL 7-18 [facility] Sodium levelOrdered By: Saúl Flowers on 04-20-2024 Sodium [Moles/Vol] 135 mmol/L Low 136-145 [facility] White blood cell (WBC) count Ordered By: Saúl Flowers on 04-20-2024 WBC (Bld) [#/Vol] 8.5 10*3/uL 4.4-11.0 [facility] MR/BMS.BVSon 04-08-2024 MR/BMS.BVS Normal [facility] Cardiology Visit Reporton Cardiology Visit Report Normal [facility] CREATININE FINGERSTICKon CREATININE WB < 1.0 Normal 0.70-1.30 [facility] Comment on above: Performed By: #### L 9100.0200 ####[facility] [address] [place], [place], [id number] EGFR WB > 60.0000 Normal >60 [facility] Comment on above: Performed By: #### L 9100.0200 ####[facility] [address] [facility] [place], [place], [address] CTA Abd w/Runoff W/WO Contra ston 03-29-2024 CTA Abd w/Runoff W/WO Contrast Normal [facility] Creatinine measurement at be dsideOrdered By: Lubna Manley on 03-29-2024 Bedside Creatinine < 1.0 mg/dL 0.70-1.30 [facility] EGFROrdered By: Lubna Manley on 03-29-2024 Bedside Estimated GFR (eGFR) > 60.0000 mL/min >60 [facility] MR/BMS.BVSon 03-22-2024 MR/BMS.BVS Normal [facility] Lower Ext Art Exam w/o Exerc zachary 03-09-2024 Lower Ext Art Exam w/o Exercis Normal [facility] Internal Medicine Office Vis iton 02-24-2024 Internal Medicine Office Visit Normal [facility] Laboratory - Hematology and Cell countson 02-24-2024 HbA1c (Bld) [Mass fraction] 11.3 % High 4.2-6.3 [facility] MR/BMS.BVSon 02-24-2024 MR/BMS.BVS Normal [facility] Lipid Profileon 02-23-2024 Cholesterol [Mass/Vol] 238 mg/dL High 200 [facility] Comment on above: Result Comment: <200 mg/dL Desirable 200-240 mg/dL Borderline >240 mg/dL High Risk Performed By: #### L 500.3400, L500.4100 ####[facility] [address] [place], [address] Cholesterol in HDL [Mass/Vol] 38 mg/dL Low [facility] Comment on above: Result Comment: The drugs N-Acetylcysteine and Metamizole may falselydepress this assay. Reference Range HDL <40 mg/dL Low HDL Cholesterol HDL >or= 60 mg/dL High HDL Cholesterol Performed By: #### L 500.3400, L500.4100 ####[facility] [address] [place], [address] LDL TNP Normal 0-130 [facility] Comment on above: Performed By: #### L 500.3400, L500.4100 ####[facility] [address] [place], [address] Triglyceride [Mass/Vol] 607 mg/dL High [facility] Comment on above: Result Comment: The drugs N-Acetylcysteine and Metamizole may falselydepress this assay.TRIGLYCERIDE IS GREATER THAN 400 mg/dL.LDL RESULT IS INVALID AND WILL NOT BE REPORTED.Serum Triglycerides Reference Interval Normal <150 mg/dL Borderline high 150 - 199 mg/dL High 200 - 499 mg/dL Very High > or = 500 mg/dL Performed By: #### L 500.3400, L500.4100 ####[facility] [address] [place], [address] VLDL TNP Normal 5-40 [facility] Comment on above: Performed By: #### L 500.3400, L500.4100 ####[facility] [address] [place], [address] Liver Profileon 02-23-2024 Albumin [Mass/Vol] 3.8 g/dL Normal 3.2-5.0 [facility] Comment on above: Performed By: #### L 500.3400, L500.4100 ####[facility] [address] [place], [address] ALK P 69 U/L Normal 45-117 [facility] Comment on above: Performed By: #### L 500.3400, L500.4100 ####[facility] [address] [place], [address] ALT [Catalytic activity/Vol] 37 U/L Normal 16-61 [facility] Comment on above: Performed By: #### L 500.3400, L500.4100 ####[facility] [address] [place], [address] AST [Catalytic activity/Vol] 27 U/L Normal 15-37 [facility] Comment on above: Performed By: #### L 500.3400, L500.4100 ####[facility] [address] [place], [address] Bilirubin [Mass/Vol] 0.70 mg/dL Normal 0.20-1.00 [facility] Comment on above: Result Comment: For patients on eltrombopag therapy, use of Dimension [place] TBIL is not recommended. Performed By: #### L 500.3400, L500.4100 ####[facility] [address] [place], [address] Bilirubin.direct [Mass/Vol] 0.16 mg/dL Normal 0.00-0.30 [facility] Comment on above: Performed By: #### L 500.3400, L500.4100 ####[facility] [address] [place], [address] Globulin (S) [Mass/Vol] 4.0 g/dL Normal 2.2-4.2 [facility] Comment on above: Performed By: #### L 500.3400, L500.4100 ####[facility] [address] [place], [address] T PROT 7.8 g/dL Normal 6.4-8.2 [facility] Comment on above: Performed By: #### L 500.3400, L500.4100 ####[facility] [address] [place], [address] MR/BMS.BVSon 01-07-2024 MR/BMS.BVS Normal [facility] Venous Duplex US, Unilateral on 11-13-2023 Venous Duplex US, Unilateral Normal [facility] Basophil percentageOrdered B y: Xiang Brown on 04-15-2023 Bilirubin [Mass/Vol] 0.60 mg/dL 0.20-1.00 [facility] Comment on above: For patients on eltr ombopag therapy, use of Dimension [place] TBIL is not recommended. Chloride [Moles/Vol] 100 mmol/L 98-107 [facility] Cholesterol [Mass/Vol] 255 mg/dL <200 [facility] Comment on above: <200 mg/dL Desirable 200-240 mg/dL Borderline >240 mg/dL High Risk Glucose [Mass/Vol] 255 mg/dL 74-106 [facility] Comment on above: Glucose result great er than or equal to 200 mg/dLsuggests DIABETES MELLITUS per A.D.A. criteria. Potassium [Moles/Vol] 4.7 mmol/L 3.5-5.1 [facility] Comment on above: Slight Hemolysis, Re sult may be falsely increased. Protein [Mass/Vol] 7.7 g/dL 6.4-8.2 [facility] Sodium [Moles/Vol] 133 mmol/L 136-145 [facility] Triglyceride [Mass/Vol] 411 mg/dL <199 [facility] Comment on above: The drugs N-Acetylcy [...] 04-15-2023 ALP [Catalytic activity/Vol] 81 U/L 45-117 [facility] ALT [Catalytic activity/Vol] 40 U/L 16-61 [facility] CO2 [Moles/Vol] 28.0 mmol/L 21.0-32.0 [facility] Globulin (S) [Mass/Vol] 4.1 g/dL 2.2-4.2 [facility] Urea nitrogen/Creatinine [Mass ratio] 11.9 mg/mg 10-20 [facility] Laboratory - Hematology and Cell countson 04-15-2023 HbA1c (Bld) [Mass fraction] 10.6 % 4.2-6.3 [facility] No Panel InformationOrdered By: Xiang Rogers on 04-15-2023 Estimated GFR (MDRD) Amer 96 mL/min >60 [facility] Comment on above: GFR Calc Estimated GFR (MDRD) Non-Af Amer 79 mL/min >60 [facility] Comment on above: Non- GFR Calc Serum or plasma albumin brenda urement (mass/volume)Ordered By: Xiang Rogers on 04-15-2023 Albumin [Mass/Vol] 3.6 g/dL 3.2-5.0 [facility] Serum or plasma albumin/glob ulin mass ratioOrdered By: Xiang Rogers on 04-15-2023 Albumin/Globulin [Mass ratio] 0.9 {ratio} 0.9-2.4 [facility] Serum or plasma calcium brenda urement (mass/volume)Ordered By: Xiang Rogers on 04-15-2023 Calcium [Mass/Vol] 8.9 mg/dL 8.5-10.1 [facility] Serum or plasma cholesterol in HDL measurement (mass/volume)Ordered By: Xiang Rogers on 04-15-2023 Cholesterol in HDL [Mass/Vol] 37 mg/dL >40 [facility] Comment on above: The drugs N-Acetylcy steine and Metamizole may falsely depress this assay. Reference Range HDL <40 mg/dL Low HDL Cholesterol HDL >or= 60 mg/dL High HDL Cholesterol Serum or plasma cholesterol in VLDL measurement (mass/volume)Ordered By: Xiang Rogers on 04-15-2023 Cholesterol in VLDL [Mass/Vol] [facility] Comment on above: Test not performed Serum or plasma creatinine m easurement (mass/volume)Ordered By: Xiang Rogers on 04-15-2023 Creatinine [Mass/Vol] 1.01 mg/dL 0.70-1.30 [facility] Comment on above: The validity of the calculated GFR & GFRAA in patients over 70 years has not been determined. Clinical correlation is essential. Serum or plasma low density lipoprotein (LDL) cholesterol measurement (mass/volume)Ordered By: Xiang Rogers on 04-15-2023 Cholesterol in LDL [Mass/Vol] [facility] Comment on above: Test not performed Serum or plasma urea nitroge n measurement (mass/volume)Ordered By: Xiang Rogers on 04-15-2023 Urea nitrogen [Mass/Vol] 12 mg/dL -18 [facility] Thin prep Papanicolaou smear with manual screeningOrdered By: Xiang Rogers on 04-15-2023 Thin prep Papanicolaou smear with manual screening 29 U/L [facility] Comment on above: Slight Hemolysis, Re sult may be falsely increased. Thin prep Papanicolaou smear with manual screening 5 5-15 [facility] Laboratory - Hematology and Cell countson 01-13-2023 HbA1c (Bld) [Mass fraction] 9.0 % 4.2-6.3 [facility] Basophil percentageOrdered B y: Dean Pena on 06-02-2022 Bilirubin [Mass/Vol] 0.50 mg/dL 0.20-1.00 [facility] Comment on above: For patients on eltr ombopag therapy, use of Dimension [place] TBIL is not recommended. Cholesterol [Mass/Vol] 326 mg/dL <200 [facility] Comment on above: <200 mg/dL Desirable 200-240 mg/dL Borderline >240 mg/dL High Risk Protein [Mass/Vol] 7.5 g/dL 6.4-8.2 [facility] Triglyceride [Mass/Vol] 883 mg/dL <199 [facility] Comment on above: The drugs N-Acetylcy [...] on 06-02-2022 Bilirubin.direct [Mass/Vol] 0.07 mg/dL 0.00-0.30 [facility] Laboratory - Chemistry and C hemistry - challengeOrdered By: Dean Pena on 06-02-2022 ALP [Catalytic activity/Vol] 68 U/L 45-117 [facility] ALT [Catalytic activity/Vol] 35 U/L 16-61 [facility] Globulin (S) [Mass/Vol] 3.9 g/dL 2.2-4.2 [facility] Serum or plasma albumin brenda urement (mass/volume)Ordered By: Dean Pena on 06-02-2022 Albumin [Mass/Vol] 3.6 g/dL 3.2-5.0 [facility] Serum or plasma cholesterol in HDL measurement (mass/volume)Ordered By: Dean Pena on 06-02-2022 Cholesterol in HDL [Mass/Vol] 36 mg/dL >40 [facility] Comment on above: The drugs N-Acetylcy steine and Metamizole may falsely depress this assay. Reference Range HDL <40 mg/dL Low HDL Cholesterol HDL >or= 60 mg/dL High HDL Cholesterol Serum or plasma cholesterol in VLDL measurement (mass/volume)Ordered By: Dean Pena on 06-02-2022 Cholesterol in VLDL [Mass/Vol] [facility] Comment on above: Test not performed Serum or plasma low density lipoprotein (LDL) cholesterol measurement (mass/volume)Ordered By: Dean Pena on 06-02-2022 Cholesterol in LDL [Mass/Vol] [facility] Comment on above: Test not performed Thin prep Papanicolaou smear with manual screeningOrdered By: Dean Pena on 06-02-2022 Thin prep Papanicolaou smear with manual screening 26 U/L 15-37 [facility] Comment on above: Moderate Hemolysis, Result may be falsely increased. Absolute lymphocyte countOrd ered By: Dr. Johnson on 04-19-2022 Lymphocytes Auto (Unsp spec) [#/Vol] 1.77 10*3/uL 0.83-4.51 [facility] Basophil percentageOrdered B y: Dr. Fields on 04-19-2022 Chloride [Moles/Vol] 104 mmol/L 98-107 [facility] Glucose [Mass/Vol] 235 mg/dL 74-106 [facility] Comment on above: Glucose result great er than or equal to 200 mg/dLsuggests DIABETES MELLITUS per A.D.A. criteria. Potassium [Moles/Vol] 4.1 mmol/L 3.5-5.1 [facility] Sodium [Moles/Vol] 137 mmol/L 136-145 [facility] Basophil percentageOrdered B y: Dr. Johnson on 04-19-2022 Basophils/100 WBC (Bld) 0.5 % 0-1 [facility] Eosinophils/100 WBC (Bld) 4.3 % 0-5 [facility] Neutrophils (Bld) [#/Vol] 3.9 10*3/uL 2.0-7.7 [facility] Neutrophils/100 WBC (Bld) 59.9 % 47-70 [facility] WBC (Bld) [#/Vol] 6.6 10*3/uL 4.4-11.0 [facility] Blood erythrocytes count (nu mber/volume)Ordered By: Dr. Johnson on 04-19-2022 RBC (Bld) [#/Vol] 4.82 10*6/uL 4.6-6.2 [facility] Blood hemoglobin measurement (mass/volume)Ordered By: Dr. Johnson on 04-19-2022 Hemoglobin (Bld) [Mass/Vol] 15.4 g/dL 13.0-16.5 [facility] Blood lymphocytes/100 leukoc ytesOrdered By: Dr. Johnson on 04-19-2022 Lymphocytes/100 WBC (Bld) 27.0 % 19-41 [facility] Blood monocytes/100 leukocyt esOrdered By: Dr. Johnson on 04-19-2022 Monocytes/100 WBC (Bld) 7.8 % 0-10 [facility] Blood platelet mean volumeOr dered By: Dr. Johnson on 04-19-2022 Platelet mean volume (Bld) [Entitic vol] 10.2 fL 6.2-12.0 [facility] Determination of erythrocyte mean corpuscular volume (MCV)Ordered By: Dr. Johnson on 04-19-2022 MCV (RBC) [Entitic vol] 95.4 fL 80-94 [facility] Glucose Glucometer (dC) [M ass/Vol]Ordered By: Dr. Fields on 04-19-2022 Glucose [Mass/Vol] 290 mg/dL 74-106 [facility] Comment on above: MANAGEMENT OF PATIEN T CARE PER NURSING PROTOCOL Hematocrit Auto (Bld) [Volum e fraction]Ordered By: Dr. Johnson on 04-19-2022 Hematocrit (Bld) [Volume fraction] 46.0 % 40-54 [facility] INR in Blood by Coagulation assayOrdered By: Dr. Fields on 04-19-2022 INR Coag (Bld) [Relative time] 1.0 {INR} [facility] Laboratory - Chemistry and C hemistry - challengeOrdered By: Dr. Fields on 04-19-2022 CO2 [Moles/Vol] 26.0 mmol/L 21.0-32.0 [facility] Urea nitrogen/Creatinine [Mass ratio] 15.7 mg/mg 10-20 [facility] Laboratory - CoagulationOrde red By: Dr. Fields on 04-19-2022 aPTT Coag (Bld) [Time] 25.0 s 24.1-36.2 [facility] PT Coag (PPP) [Time] 13.0 s 11.7-14.9 [facility] Laboratory - Hematology and Cell countsOrdered By: Dr. Johnson on 04-19-2022 Erythrocyte distribution width (RBC) [Entitic vol] 43.7 fL 35.1-43.9 [facility] Erythrocyte distribution width (RBC) [Ratio] 12.4 % 11.6-14.6 [facility] Immature granulocytes/100 WBC (Bld) 0.500 % 0.0-0.9 [facility] Comment on above: IG% - Immature Granu locytes (promyelocytes, myelocytes and metamyelocytes) > 1% indicates that a LEFT SHIFT is Present. MCH (RBC) [Entitic mass] 32.0 pg 27.0-32.0 [facility] Nucleated RBC/100 WBC (Bld) [Ratio] 0 % 0-5 [facility] MCHC Auto (RBC) [Mass/Vol]Or dered By: Dr. Johnson on 04-19-2022 MCHC (RBC) [Mass/Vol] 33.5 g/dL 32-36 [facility] No Panel InformationOrdered By: Dr. Fields on 04-19-2022 Estimated Creatinine Clearance Calc 79.98 ml/min [facility] Estimated GFR (MDRD) Amer 95 mL/min >60 [facility] Comment on above: GFR Calc Estimated GFR (MDRD) Non-Af Amer 79 mL/min >60 [facility] Comment on above: Non- GFR Calc Platelets bldOrdered By: Dr. Johnson on 04-19-2022 Platelets (Bld) [#/Vol] 254 10*3/uL 150-450 [facility] Serum or plasma calcium brenda urement (mass/volume)Ordered By: Dr. Fields on 04-19-2022 Calcium [Mass/Vol] 8.9 mg/dL 8.5-10.1 [facility] Serum or plasma creatinine m easurement (mass/volume)Ordered By: Dr. Fields on 04-19-2022 Creatinine [Mass/Vol] 1.02 mg/dL 0.70-1.30 [facility] Comment on above: The validity of the calculated GFR & GFRAA in patients over 70 years has not been determined. Clinical correlation is essential. Serum or plasma urea nitroge n measurement (mass/volume)Ordered By: Dr. Fields on 04-19-2022 Urea nitrogen [Mass/Vol] 16 mg/dL 7-18 [facility] Thin prep Papanicolaou smear with manual screeningOrdered By: Dr. Fields on 04-19-2022 Thin prep Papanicolaou smear with manual screening 7 5-15 [facility] Absolute lymphocyte counton 04-18-2022 Lymphocytes Auto (Unsp spec) [#/Vol] 2.31 10*3/uL 0.83-4.51 [facility] Work Phone: Basophil percentageon 2022 Basophils/100 WBC (Bld) 0.5 % 0-1 [facility] Work Phone: Chloride [Moles/Vol] 103 mmol/L 98-107 [facility] Work Phone: Eosinophils/100 WBC (Bld) 4.3 % 0-5 [facility] Work Phone: Glucose [Mass/Vol] 252 mg/dL 74-106 [facility] Work Phone: Comment on above: Moderate Lipemia, Re sult may be falsely increased.Glucose result greater than or equal to 200 mg/dLsuggests DIABETES MELLITUS per A.D.A. criteria. Neutrophils (Bld) [#/Vol] 4.7 10*3/uL 2.0-7.7 [facility] Work Phone: Neutrophils/100 WBC (Bld) 57.7 % 47-70 [facility] Work Phone: Potassium [Moles/Vol] 3.9 mmol/L 3.5-5.1 [facility] Work Phone: Comment on above: Moderate Hemolysis, Result may be falsely increased. Sodium [Moles/Vol] 136 mmol/L 136-145 [facility] Work Phone: WBC (Bld) [#/Vol] 8.1 10*3/uL 4.4-11.0 [facility] Work Phone: Blood erythrocytes count (nu mber/volume)on 04-18-2022 RBC (Bld) [#/Vol] 4.98 10*6/uL 4.6-6.2 [facility] Work Phone: Blood hemoglobin measurement (mass/volume)on 04-18-2022 Hemoglobin (Bld) [Mass/Vol] 16.4 g/dL 13.0-16.5 [facility] Work Phone: Blood lymphocytes/100 leukoc yteson 04-18-2022 Lymphocytes/100 WBC (Bld) 28.6 % 19-41 [facility] Work Phone: [phone] Blood monocytes/100 leukocyt eson 04-18-2022 Monocytes/100 WBC (Bld) 8.5 % 0-10 [facility] Work Phone: Blood platelet mean volumeon 04-18-2022 Platelet mean volume (Bld) [Entitic vol] 10.2 fL 6.2-12.0 [facility] Work Phone: [phone] Determination of erythrocyte mean corpuscular volume (MCV)on 04-18-2022 MCV (RBC) [Entitic vol] 97.4 fL 80-94 [facility] Work Phone: Hematocrit Auto (Bld) [Volum e fraction]on 04-18-2022 Hematocrit (Bld) [Volume fraction] 48.5 % 40-54 [facility] Work Phone: INR in Blood by Coagulation assayon 04-18-2022 INR Coag (Bld) [Relative time] 1.0 {INR} [facility] Work Phone: Laboratory - Chemistry and C hemistry - challengeon 04-18-2022 CO2 [Moles/Vol] 28.0 mmol/L 21.0-32.0 [facility] Work Phone: Urea nitrogen/Creatinine [Mass ratio] 17.1 mg/mg 10-20 [facility] Work Phone: [phone] Laboratory - Chemistry and C hemistry - challengeOrdered By: Dr. Moura on 04-18-2022 Magnesium [Mass/Vol] 1.8 mg/dL 1.6-2.6 [facility] Comment on above: Moderate Hemolysis, Result may be falsely increased. Laboratory - Coagulationon 0 04-18-2022 aPTT Coag (Bld) [Time] 25.6 s 24.1-36.2 [facility] ismon [facility] Work Phone: PT Coag (PPP) [Time] 12.3 s 11.7-14.9 [facility] Work Phone: Laboratory - Hematology and Cell countson 04-18-2022 Erythrocyte distribution width (RBC) [Entitic vol] 44.8 fL 35.1-43.9 [facility] Work Phone: Erythrocyte distribution width (RBC) [Ratio] 12.4 % 11.6-14.6 [facility] Work Phone: Immature granulocytes/100 WBC (Bld) 0.400 % 0.0-0.9 [facility] Work Phone: Comment on above: IG% - Immature Granu locytes (promyelocytes, myelocytes and metamyelocytes) > 1% indicates that a LEFT SHIFT is Present. MCH (RBC) [Entitic mass] 32.9 pg 27.0-32.0 [facility] Work Phone: Nucleated RBC/100 WBC (Bld) [Ratio] 0 % 0-5 [facility] Work Phone: MCHC Auto (RBC) [Mass/Vol]on 04-18-2022 MCHC (RBC) [Mass/Vol] 33.8 g/dL 32-36 [facility] Work Phone: No Panel InformationOrdered By: Dr. Fields on 04-18-2022 Troponin I High Sensitivity 1889 pg/mL 3.0-78.0 [facility] Comment on above: Critical Result(s) C alled at: 09:16:37 04/18/2022 by: Rula Gutierrez. Results read back by same. Please Note: New Test Units and Gender Specific Reference Ranges. For more information see Policy Stat Procedure [place] High Sensitivity Troponin (TNIH) and attachments. No Panel Informationon 04-18 Troponin I High Sensitivity 241 pg/mL 3.0-78.0 [facility] Work Phone: Comment on above: Critical Result(s) C alled at: 04:49:49 04/18/2022 by: NICOLE Matthews BARGE WORKER. Results read back by same. Please Note: New Test Units and Gender Specific Reference Ranges. For more information see Policy Stat Procedure [place] High Sensitivity Troponin (TNIH) and attachments. Estimated Creatinine Clearance Calc 77.69 ml/min [facility] Work Phone: Estimated GFR (MDRD) Amer 92 mL/min >60 [facility] Work Phone: Comment on above: GFR Calc Estimated GFR (MDRD) Non-Af Amer 76 mL/min >60 [facility] Work Phone: Comment on above: Non- GFR Calc Platelets bldon 04-18-2022 Platelets (Bld) [#/Vol] 254 10*3/uL 150-450 [facility] Work Phone: Serum or plasma calcium brenda urement (mass/volume)on 04-18-2022 Calcium [Mass/Vol] 8.5 mg/dL 8.5-10.1 [facility] Work Phone: Comment on above: Moderate Lipemia, Re sult may be falsely decreased. Serum or plasma creatinine m easurement (mass/volume)on 04-18-2022 Creatinine [Mass/Vol] 1.05 mg/dL 0.70-1.30 [facility] Work Phone: Comment on above: The validity of the calculated GFR & GFRAA in patients over 70 years has not been determined. Clinical correlation is essential. Serum or plasma urea nitroge n measurement (mass/volume)on 04-18-2022 Urea nitrogen [Mass/Vol] 18 mg/dL 7-18 [facility] Work Phone: Thin prep Papanicolaou smear with manual screeningon 04-18-2022 Thin prep Papanicolaou smear with manual screening 5 5-15 [facility] Work Phone: Laboratory - Hematology and Cell countson 04-09-2022 HbA1c (Bld) [Mass fraction] 12.5 % 4.2-6.3 [facility] CNOVon 02-04-2022 [facility] Office Visit (GENSWS ) JAYLEN MEJIA ([id number]) 1960 [place] Date Time Provider Department 02/04/22 [...] non-ST elevation myocardial infarction (NSTEMI) 06/11/[address] Herrera Espinosa Hypertension Other emphysema (HCC) [...] repair of (more content not included)... 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 Herrera Espinosa Hypertension Other emphysema (HCC) [...] and ROS (more content not included)... Normal [facility] CT PELVIS WO IVCONon 022 CT PELVIS WO IVCON * * *Final Report* * * DATE OF EXAM: Jan 28 2022 10:28AM [facility] 0556 - CT PELVIS WO IVCON / [...] Fat-containing left inguinal hernia. Scattered colonic diverticula. 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 Herrera Espinosa Hypertension Other emphysema (HCC) [...] gauge x (more content not included)... Normal [facility] Absolute lymphocyte counton 01-01-2022 Lymphocytes Auto (Unsp spec) [#/Vol] 2.63 10*3/uL 0.83-4.51 [facility] Work Phone: Basophil percentageon 2021 Basophils/100 WBC (Bld) 0.3 % 0-1 [facility] Work Phone: Chloride [Moles/Vol] 98 mmol/L 98-107 [facility] Work Phone: Eosinophils/100 WBC (Bld) 3.4 % 0-5 [facility] Work Phone: Glucose [Mass/Vol] 283 mg/dL 74-106 [facility] Work Phone: Comment on above: Moderate Lipemia, Re sult may be falsely increased.Glucose result greater than or equal to 200 mg/dLsuggests DIABETES MELLITUS per A.D.A. criteria. Neutrophils (Bld) [#/Vol] 3.5 10*3/uL 2.0-7.7 [facility] Work Phone: Neutrophils/100 WBC (Bld) 51.0 % 47-70 [facility] Work Phone: Potassium [Moles/Vol] 4.2 mmol/L 3.5-5.1 [facility] Work Phone: Comment on above: Moderate Hemolysis, Result may be falsely increased. Sodium [Moles/Vol] 133 mmol/L 136-145 [facility] Work Phone: WBC (Bld) [#/Vol] 6.8 10*3/uL 4.4-11.0 [facility] Work Phone: Blood erythrocytes count (nu mber/volume)on 01-01-2022 RBC (Bld) [#/Vol] 4.96 10*6/uL 4.6-6.2 [facility] Work Phone: Blood hemoglobin measurement (mass/volume)on 01-01-2022 Hemoglobin (Bld) [Mass/Vol] 16.4 g/dL 13.0-16.5 [facility] Work Phone: Blood lymphocytes/100 leukoc yteson 01-01-2022 Lymphocytes/100 WBC (Bld) 38.7 % 19-41 [facility] Work Phone: Blood monocytes/100 leukocyt eson 01-01-2022 Monocytes/100 WBC (Bld) 6.3 % 0-10 [facility] Work Phone: Blood platelet mean volumeon 01-01-2022 Platelet mean volume (Bld) [Entitic vol] 10.3 fL 6.2-12.0 [facility] Work Phone: Determination of erythrocyte mean corpuscular volume (MCV)on 01-01-2022 MCV (RBC) [Entitic vol] 93.5 fL 80-94 [facility] Work Phone: Hematocrit Auto (Bld) [Volum e fraction]on 01-01-2022 Hematocrit (Bld) [Volume fraction] 46.4 % 40-54 [facility] Work Phone: Laboratory - Chemistry and C hemistry - challengeon 01-01-2022 CO2 [Moles/Vol] 30.0 mmol/L 21.0-32.0 [facility] Work Phone: Urea nitrogen/Creatinine [Mass ratio] 15.3 mg/mg 10-20 [facility] Work Phone: Laboratory - Hematology and Cell countson 01-01-2022 Erythrocyte distribution width (RBC) [Entitic vol] 41.0 fL 35.1-43.9 [facility] Work Phone: Erythrocyte distribution width (RBC) [Ratio] 11.9 % 11.6-14.6 [facility] Work Phone: [phone] Immature granulocytes/100 WBC (Bld) 0.300 % 0.0-0.9 [facility] Work Phone: [phone] Comment on above: IG% - Immature Granu locytes (promyelocytes, myelocytes and metamyelocytes) > 1% indicates that a LEFT SHIFT is Present. MCH (RBC) [Entitic mass] 33.1 pg 27.0-32.0 [facility] Work Phone: Nucleated RBC/100 WBC (Bld) [Ratio] 0 % 0-5 [facility] Work Phone: [phone] MCHC Auto (RBC) [Mass/Vol]on 01-01-2022 MCHC (RBC) [Mass/Vol] 35.3 g/dL 32-36 [facility] Work Phone: No Panel Informationon 01-01 Estimated GFR (MDRD) Amer 100 mL/min >60 [facility] Work Phone: Comment on above: GFR Calc Estimated GFR (MDRD) Non-Af Amer 82 mL/min >60 [facility] Work Phone: Comment on above: Non- GFR Calc Vitamin D 25-Hydroxy 13.3 ng/mL [facility] Work Phone: [phone] Comment on above: Vitamin D 25(OH) Sta tus Range Deficiency <20 ng/mL (50nmol/L) Insufficiency 20 - 30 ng/mL (50 - 75 nmol/L) Sufficiency 30 - 100 ng/mL (75 - 250 nmol/L) Toxicity >100 ng/mL (>250 nmol/L) Platelets bldon 01-01-2022 Platelets (Bld) [#/Vol] 258 10*3/uL 150-450 [facility] Work Phone: [phone] Serum or plasma calcium brenda urement (mass/volume)on 01-01-2022 Calcium [Mass/Vol] 8.2 mg/dL 8.5-10.1 [facility] Work Phone: Comment on above: Moderate Lipemia, Re sult may be falsely decreased. Serum or plasma creatinine m easurement (mass/volume)on 01-01-2022 Creatinine [Mass/Vol] 0.98 mg/dL 0.70-1.30 [facility] Work Phone: Comment on above: The validity of the calculated GFR & GFRAA in patients over 70 years has not been determined. Clinical correlation is essential. Serum or plasma urea nitroge n measurement (mass/volume)on 01-01-2022 Urea nitrogen [Mass/Vol] 15 mg/dL 7-18 [facility] Work Phone: Thin prep Papanicolaou smear with manual screeningon 01-01-2022 Thin prep Papanicolaou smear with manual screening 5 5-15 [facility] Work Phone: Whole blood hemoglobin A1c/t otal hemoglobin ratio (mass fraction)on 01-01-2022 HbA1c (Bld) [Mass fraction] 11.6 % 3.8-5.6 [facility] Work Phone: Comment on above: Normal < 5.7 % Predi abetic 5.7 - 6.4 % Diabetic >or= 6.5 % Please note range changes. 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 Normal [facility] No Panel Informationon 07-18 Influenza Types A,B Direct FA (PORFIRIO) [facility] Work Phone: Basophil percentageon 2021 Chloride [Moles/Vol] 92 mmol/L 98-107 [facility] Work Phone: [phone] Cholesterol [Mass/Vol] 384 mg/dL <200 Wo simon [facility] Work Phone: Comment on above: Moderate Icterus, Re sult may be falsely decreased. <200 mg/dL Desirable 200-240 mg/dL Borderline >240 mg/dL High Risk Glucose [Mass/Vol] 351 mg/dL 74-106 [facility] Work Phone: Comment on above: Moderate Lipemia, Re sult may be falsely increased.Glucose result greater than or equal to 200 mg/dLsuggests DIABETES MELLITUS per A.D.A. criteria. Potassium [Moles/Vol] 4.3 mmol/L 3.5-5.1 [facility] Work Phone: Comment on above: Moderate Hemolysis, Result may be falsely increased. Sodium [Moles/Vol] 127 mmol/L 136-145 [facility] Work Phone: Triglyceride [Mass/Vol] mg/dL [facility] Work Phone: Comment on above: The drugs N-Acetylcy steine and Metamizole may falsely depress this assay. Laboratory - Chemistry and C hemistry - challengeon 06-13-2021 CO2 [Moles/Vol] 29.0 mmol/L 21.0-32.0 [facility] Work Phone: [phone] Urea nitrogen/Creatinine [Mass ratio] 18.6 mg/mg 10-20 [facility] Work Phone: No Panel Informationon 06-13 Estimated GFR (MDRD) Amer 101 mL/min >60 [facility] Work Phone: [phone] Comment on above: GFR Calc Estimated GFR (MDRD) Non-Af Amer 84 mL/min >60 [facility] Work Phone: Comment on above: Non- GFR Calc Serum or plasma calcium brenda urement (mass/volume)on 06-13-2021 Calcium [Mass/Vol] 7.1 mg/dL 8.5-10.1 [facility] Work Phone: Comment on above: Moderate Lipemia, Re sult may be falsely decreased. Serum or plasma cholesterol in HDL measurement (mass/volume)on 06-13-2021 Cholesterol in HDL [Mass/Vol] 32 mg/dL [facility] Work Phone: Comment on above: The drugs N-Acetylcy steine and Metamizole may falsely depress this assay. Reference Range HDL <40 mg/dL Low HDL Cholesterol HDL >or= 60 mg/dL High HDL Cholesterol Serum or plasma cholesterol in VLDL measurement (mass/volume)on 06-13-2021 Cholesterol in VLDL [Mass/Vol] 200 mg/dL 5-40 [facility] Work Phone: Comment on above: Previous reported re sult: TNP mg/dLEdited by: JOHN on 06/13/21:1716 Serum or plasma creatinine m easurement (mass/volume)on 06-13-2021 Creatinine [Mass/Vol] 0.97 mg/dL 0.70-1.30 [facility] Work Phone: Comment on above: Moderate Icterus, Re sult may be falsely decreased.The validity of the calculated GFR & GFRAA in patients over 70 years has not been determined. Clinical correlation is essential. Serum or plasma low density lipoprotein (LDL) cholesterol measurement (mass/volume)on 06-13-2021 Cholesterol in LDL [Mass/Vol] TNP [facility] Work Phone: Comment on above: Test not performed Serum or plasma urea nitroge n measurement (mass/volume)on 06-13-2021 Urea nitrogen [Mass/Vol] 18 mg/dL 7-18 [facility] Work Phone: Thin prep Papanicolaou smear with manual screeningon 06-13-2021 Thin prep Papanicolaou smear with manual screening 6 5-15 [facility] Work Phone: Whole blood hemoglobin A1c/t otal hemoglobin ratio (mass fraction)on 06-13-2021 HbA1c (Bld) [Mass fraction] 11.7 % 3.8-5.6 [facility] Work Phone: Comment on above: Normal < 5.7 % Predi abetic 5.7 - 6.4 % Diabetic >or= 6.5 % Please note range changes. CNOVon 04-01-2021 CNOV Office Visit (UCWSTR ) JAYLEN MEJIA ([id number]) 1960 M Date Time Provider Department 04/01/21 8:00 AM MAXX OWEN [facility] During your visit today, we recorded the following information about you: Temperature Pulse Respiration Blood pressure 96.8 degrees 64/minute 18/minute 120/84 Weight 89.6 kg Maxx Owen APRN.[facility] 04/01/2021 8:24 AM Signed Patient Information [...] the esophagus (more content not included)... Normal [facility] Influenza virus A and B and SARS-CoV-2 (COVID-19) Ag panel - Upper respiratory specim SARS-CoV-2 (COVID-19) RNA HAYDER+probe Ql (Resp) [facility] Work Phone: No Panel Information SARS-CoV-2 & FLU Antigen (Rapid) [facility] Work Phone: Vital Signs Date Time Vital Sign Value Performing Clinician Facility 11-10-2024 10:14-0400 Body height 180.[address] Xiang Rogers DO Work Phone: [facility] 11-10-2024 10:14-0400 Body mass index (BMI) [Ratio] 30.1 kg/m2 Dr. Xiang Rogers DO Work Phone: [facility] 11-10-2024 10:14-0400 Body temperature 97 [degF] Dr. Xiang Rogers DO Work Phone: [facility] 11-10-2024 10:14-0400 Body weight 97.[address] Xiang Rogers DO Work Phone: [facility] 11-10-2024 10:14-0400 Diastolic blood pressure 64 mm[Hg] Dr. Xiang Rogers DO Work Phone: [facility] 11-10-2024 10:14-0400 Heart rate 96 /min Dr. Xiang Rogers DO Work Phone: [facility] 11-10-2024 10:14-0400 Respiratory rate 16 /min Dr. Xiang Rogers DO Work Phone: [facility] 11-10-2024 10:14-0400 SaO2% (BldA) [Mass fraction] 98 % Dr. Xiang Rogers DO Work Phone: [facility] 11-10-2024 10:14-0400 Systolic blood pressure 100 mm[Hg] Dr. Xiang Rogers DO Work Phone: [facility] 11-04-2024 13:57-0400 Body height 180.[address] Xiang Rogers DO Work Phone: [facility] 11-04-2024 13:57-0400 Body mass index (BMI) [Ratio] 28.8 kg/m2 Dr. Xiang Rogers DO Work Phone: [facility] 11-04-2024 13:57-0400 Body temperature 98.4 [degF] Dr. Xiang Rogers DO Work Phone: [facility] 11-04-2024 13:57-0400 Body weight 93.[address] Xiang Rogers DO Work Phone: [facility] 11-04-2024 13:57-0400 Diastolic blood pressure 60 mm[Hg] Dr. Xiang Rogers DO Work Phone: [facility] 11-04-2024 13:57-0400 Heart rate 92 /min Dr. Xiang Rogers DO Work Phone: [facility] 11-04-2024 13:57-0400 Respiratory rate 19 /min Dr. Xiang Rogers DO Work Phone: [facility] 11-04-2024 13:57-0400 SaO2% (BldA) [Mass fraction] 98 % Dr. Xiang Rogers DO Work Phone: [facility] 11-04-2024 13:57-0400 Systolic blood pressure 100 mm[Hg] Dr. Xiang Rogers DO Work Phone: [facility] 11-03-2024 10:29-0400 Body height 180.[address] Xiang Rogers DO Work Phone: [facility] 11-03-2024 10:29-0400 Body mass index (BMI) [Ratio] 28.5 kg/m2 Dr. Xiang Rogers DO Work Phone: [facility] 11-03-2024 10:29-0400 Body weight 92.[address] Xiang Rogers DO Work Phone: [facility] 11-03-2024 10:29-0400 Diastolic blood pressure 65 mm[Hg] Dr. Xiang Rogers DO Work Phone: [facility] 11-03-2024 10:29-0400 Heart rate 75 /min Dr. Xiang Rogers DO Work Phone: [facility] 11-03-2024 10:29-0400 Respiratory rate 18 /min Dr. Xiang Rogers DO Work Phone: [facility] 11-03-2024 10:29-0400 Systolic blood pressure 99 mm[Hg] Dr. Xiang Rogers DO Work Phone: [facility] 10-27-2024 01:16-0400 Body temperature 98.2 [degF] Dr. Xiang Rogers DO Work Phone: [facility] 10-27-2024 01:16-0400 Diastolic blood pressure 80 mm[Hg] Dr. Xiang Rogers DO Work Phone: [facility] 10-27-2024 01:16-0400 Heart rate 105 /min Dr. Xiang Rogers DO Work Phone: [facility] 10-27-2024 01:16-0400 Respiratory rate 14 /min Dr. Xiang Rogers DO Work Phone: [facility] 10-27-2024 01:16-0400 SaO2% (BldA) [Mass fraction] 99 % Dr. Xiang Rogers DO Work Phone: [facility] 10-27-2024 01:16-0400 Systolic blood pressure 119 mm[Hg] Dr. Xiang Rogers DO Work Phone: [facility] 10-26-2024 23:38-0400 Body mass index (BMI) [Ratio] 28.4 kg/m2 Dr. Xiang Rogers DO Work Phone: [facility] 10-26-2024 23:38-0400 Body weight 92.[address] Xiang Rogers DO Work Phone: [facility] 10-26-2024 23:29-0400 Body height 180.[address] Xiang Rogers DO Work Phone: [facility] 10-23-2024 20:45-0400 Body temperature 97.8 [degF] Dr. Xiang Rogers DO Work Phone: [facility] 10-23-2024 20:45-0400 Diastolic blood pressure 73 mm[Hg] Dr. Xiang Rogers DO Work Phone: [facility] 10-23-2024 20:45-0400 Heart rate 93 /min Dr. Xiang Rogers DO Work Phone: [facility] 10-23-2024 20:45-0400 Respiratory rate 18 /min Dr. Xiang Rogers DO Work Phone: [facility] 10-23-2024 20:45-0400 SaO2% (BldA) [Mass fraction] 94 % Dr. Xiang Rogers DO Work Phone: [facility] 10-23-2024 20:45-0400 Systolic blood pressure 103 mm[Hg] Dr. Xiang Rogers DO Work Phone: [facility] 10-23-2024 19:03-0400 Body mass index (BMI) [Ratio] 30.2 kg/m2 Dr. Xiang Rogers DO Work Phone: [facility] 10-23-2024 19:03-0400 Body weight 98.[address] Xiang Rogers DO Work Phone: [facility] 10-23-2024 17:54-0400 Body height 180.[address] Xiang Rogers DO Work Phone: [facility] 10-21-2024 16:52-0400 Body temperature 98.2 [degF] Dr. Xiang Rogers DO Work Phone: [facility] 10-21-2024 16:52-0400 Diastolic blood pressure 62 mm[Hg] Dr. Xiang Rogers DO Work Phone: [facility] 10-21-2024 16:52-0400 Heart rate 95 /min Dr. Xiang Rogers DO Work Phone: [facility] 10-21-2024 16:52-0400 Respiratory rate 20 /min Dr. Xiang Rogers DO Work Phone: [facility] 10-21-2024 16:52-0400 SaO2% (BldA) [Mass fraction] 99 % Dr. Xiang Rogers DO Work Phone: [facility] 10-21-2024 16:52-0400 Systolic blood pressure 108 mm[Hg] Dr. Xiang Rogers DO Work Phone: [facility] 10-21-2024 16:26-0400 Body height 180.[address] Xiang Rogers DO Work Phone: [facility] 10-21-2024 16:26-0400 Body mass index (BMI) [Ratio] 27 kg/m2 Dr. Xiang Rogers DO Work Phone: [facility] 10-21-2024 16:26-0400 Body weight 87.[address] Xiang Rogers DO Work Phone: [facility] 10-19-2024 23:27-0400 Body temperature 97.9 [degF] Dr. Xiang Rogers DO Work Phone: [facility] 10-19-2024 23:27-0400 Diastolic blood pressure 76 mm[Hg] Dr. Xiang Rogers DO Work Phone: [facility] 10-19-2024 23:27-0400 Heart rate 98 /min Dr. Xiang Rogers DO Work Phone: [facility] 10-19-2024 23:27-0400 Respiratory rate 16 /min Dr. Xiang Rogers DO Work Phone: [facility] 10-19-2024 23:27-0400 SaO2% (BldA) [Mass fraction] 96 % Dr. Xiang Rogers DO Work Phone: [facility] 10-19-2024 23:27-0400 Systolic blood pressure 114 mm[Hg] Dr. Xiang Rogers DO Work Phone: [facility] 10-19-2024 18:20-0400 Body height 180.[address] Xiang Rogers DO Work Phone: [facility] 10-19-2024 18:20-0400 Body mass index (BMI) [Ratio] 27 kg/m2 Dr. Xiang Rogers DO Work Phone: [facility] 10-19-2024 18:20-0400 Body weight 87.[address] Xiang Rogers DO Work Phone: [facility] 09-27-2024 09:59-0400 Body height 180.[address] Xiang Rogers DO Work Phone: [facility] 09-27-2024 09:59-0400 Body mass index (BMI) [Ratio] 26 kg/m2 Dr. Xiang Rogers DO Work Phone: [facility] 09-27-2024 09:59-0400 Body weight 84.[address] Xiang Rogers DO Work Phone: [facility] 09-27-2024 09:59-0400 Diastolic blood pressure 64 mm[Hg] Dr. Xiang Rogers DO Work Phone: [facility] 09-27-2024 09:59-0400 Heart rate 83 /min Dr. Xiang Rogers DO Work Phone: [facility] 09-27-2024 09:59-0400 Respiratory rate 18 /min Dr. Xiang Rogers DO Work Phone: [facility] 09-27-2024 09:59-0400 Systolic blood pressure 103 mm[Hg] Dr. Xiang Rogers DO Work Phone: [facility] 09-21-2024 14:17-0400 Body temperature 97.8 [degF] Dr. Xiang Roegrs DO Work Phone: [facility] 09-21-2024 14:17-0400 Diastolic blood pressure 54 mm[Hg] Dr. Xiang Rogers DO Work Phone: [facility] 09-21-2024 14:17-0400 Heart rate 82 /min Dr. Xiang Rogers DO Work Phone: [facility] 09-21-2024 14:17-0400 Respiratory rate 14 /min Dr. Xiang Rogers DO Work Phone: [facility] 09-21-2024 14:17-0400 SaO2% (BldA) [Mass fraction] 97 % Dr. Xiang Rogers DO Work Phone: [facility] 09-21-2024 14:17-0400 Systolic blood pressure 90 mm[Hg] Dr. Xiang Rogers DO Work Phone: [facility] 09-19-2024 10:52-0400 Body height 180.[address] Xiang Rogers DO Work Phone: [facility] 09-19-2024 10:52-0400 Body weight 87.[address] Xiang Rogers DO Work Phone: [facility] 09-18-2024 15:22-0400 Body mass index (BMI) [Ratio] 26.9 kg/m2 Dr. Xiang Rogers DO Work Phone: [facility] 09-18-2024 14:00-0400 Diastolic blood pressure 70 mm[Hg] Dr. Xiang Rogers DO Work Phone: [facility] 09-18-2024 14:00-0400 Heart rate 103 /min Dr. Xiang Rogers DO Work Phone: [facility] 09-18-2024 14:00-0400 Respiratory rate 20 /min Dr. Xiang Rogers DO Work Phone: [facility] 09-18-2024 14:00-0400 SaO2% (BldA) [Mass fraction] 97 % Dr. Xiang Rogers DO Work Phone: [facility] 09-18-2024 14:00-0400 Systolic blood pressure 120 mm[Hg] Dr. Xiang Rogers DO Work Phone: [facility] 09-18-2024 13:37-0400 Body temperature 98.2 [degF] Dr. Xiang Rogers DO Work Phone: [facility] 09-18-2024 09:51-0400 Body height 180.[address] Xiang Rogers DO Work Phone: [facility] 09-18-2024 09:51-0400 Body mass index (BMI) [Ratio] 26.9 kg/m2 Dr. Xiang Rogers DO Work Phone: [facility] 09-18-2024 09:51-0400 Body weight 87.[address] Xiang Rogers DO Work Phone: [facility] 08-02-2024 11:29-0400 Body mass index (BMI) [Ratio] 26.6 kg/m2 Dr. Xiang Rogers DO Work Phone: [facility] 08-02-2024 11:29-0400 Body temperature 96.4 [degF] Dr. Xiang Rogers DO Work Phone: [facility] 08-02-2024 11:29-0400 Body weight 84.[address] Xiang Rogers DO Work Phone: [facility] 08-02-2024 11:29-0400 Diastolic blood pressure 66 mm[Hg] Dr. Xiang Rogers DO Work Phone: [facility] 08-02-2024 11:29-0400 Heart rate 87 /min Dr. Xiang Rogers DO Work Phone: [facility] 08-02-2024 11:29-0400 Respiratory rate 16 /min Dr. Xiang Rogers DO Work Phone: [facility] 08-02-2024 11:29-0400 SaO2% (BldA) [Mass fraction] 98 % Dr. Xiang Rogers DO Work Phone: [facility] 08-02-2024 11:29-0400 Systolic blood pressure 118 mm[Hg] Dr. Xiang Rogers DO Work Phone: [facility] 07-29-2024 23:02-0400 Body temperature 97.2 [degF] Dr. Xiang Rogers DO Work Phone: [facility] 07-29-2024 23:02-0400 Diastolic blood pressure 69 mm[Hg] Dr. Xiang Rogers DO Work Phone: [facility] 07-29-2024 23:02-0400 Heart rate 82 /min Dr. Xiang Rogers DO Work Phone: [facility] 07-29-2024 23:02-0400 Respiratory rate 16 /min Dr. Xiang Rogers DO Work Phone: [facility] 07-29-2024 23:02-0400 SaO2% (BldA) [Mass fraction] 95 % Dr. Xiang Rogers DO Work Phone: [facility] 07-29-2024 23:02-0400 Systolic blood pressure 117 mm[Hg] Dr. Xiang Rogers DO Work Phone: [facility] 07-29-2024 20:00-0400 Body mass index (BMI) [Ratio] 26.8 kg/m2 Dr. Xiang Rogers DO Work Phone: [facility] 07-29-2024 20:00-0400 Body weight 87.[address] Xiang Rogers DO Work Phone: [facility] 07-14-2024 10:05-0400 Body temperature 98.2 [degF] Dr. Xiang Rogers DO Work Phone: [facility] 07-14-2024 10:05-0400 Body weight 85.[address] Xiang Rogers DO Work Phone: [facility] 07-14-2024 10:05-0400 Diastolic blood pressure 60 mm[Hg] Dr. Xiang Rogers DO Work Phone: [facility] 07-14-2024 10:05-0400 Heart rate 90 /min Dr. Xiang Rogers DO Work Phone: [facility] 07-14-2024 10:05-0400 Respiratory rate 16 /min Dr. Xiang Rogers DO Work Phone: [facility] 07-14-2024 10:05-0400 SaO2% (BldA) [Mass fraction] 96 % Dr. Xiang Rogers DO Work Phone: [facility] 07-14-2024 10:05-0400 Systolic blood pressure 113 mm[Hg] Dr. Xiang Rogers DO Work Phone: [facility] 07-12-2024 10:03-0400 Body mass index (BMI) [Ratio] 25.9 kg/m2 Dr. Xiang Rogers DO Work Phone: [facility] 07-12-2024 10:03-0400 Body weight 84.[address] Xiang Rogers DO Work Phone: [facility] 07-12-2024 10:03-0400 Diastolic blood pressure 72 mm[Hg] Dr. Xiang Rogers DO Work Phone: [facility] 07-12-2024 10:03-0400 Heart rate 84 /min Dr. Xiang Rogers DO Work Phone: [facility] 07-12-2024 10:03-0400 Respiratory rate 20 /min Dr. Xiang Rogers DO Work Phone: [facility] 07-12-2024 10:03-0400 SaO2% (BldA) [Mass fraction] 96 % Dr. Xiang Rogers DO Work Phone: [facility] 07-12-2024 10:03-0400 Systolic blood pressure 120 mm[Hg] Dr. Xiang Rogers DO Work Phone: [facility] 06-20-2024 10:00-0400 Body temperature 98.1 [degF] Dr. Xiang Rogers DO Work Phone: [facility] 06-20-2024 10:00-0400 Diastolic blood pressure 68 mm[Hg] Dr. Xiang Rogers DO Work Phone: [facility] 06-20-2024 10:00-0400 Heart rate 74 /min Dr. Xiang Rogers DO Work Phone: [facility] 06-20-2024 10:00-0400 Respiratory rate 16 /min Dr. iXang Rogers DO Work Phone: [facility] 06-20-2024 10:00-0400 SaO2% (BldA) [Mass fraction] 99 % Dr. Xiang Rogers DO Work Phone: [facility] 06-20-2024 10:00-0400 Systolic blood pressure 112 mm[Hg] Dr. Xiang Roegrs DO Work Phone: [facility] 06-20-2024 04:34-0400 Body mass index (BMI) [Ratio] 26.7 kg/m2 Dr. Xiang Rogers DO Work Phone: [facility] 06-20-2024 04:34-0400 Body weight [address] Xiang Rogers DO Work Phone: [facility] 06-19-2024 10:35-0400 Inhaled oxygen flow rate 1 L/min Dr. Xiang Rogers DO Work Phone: [facility] 06-18-2024 05:54-0400 Inhaled oxygen concentration 30 % Dr. Xiang Rogers DO Work Phone: [facility] 05-21-2024 17:26-0500 Body mass index (BMI) [Ratio] 28.1 kg/m2 Dr. Xiang Rogers DO Work Phone: [facility] 05-21-2024 17:26-0500 Body temperature 98.1 [degF] Dr. Xiang Rogers DO Work Phone: [facility] 05-21-2024 17:26-0500 Body weight 88.[address] Xiang Rogers DO Work Phone: [facility] 05-21-2024 17:26-0500 Diastolic blood pressure 83 mm[Hg] Dr. Xiang Rogers DO Work Phone: [facility] 05-21-2024 17:26-0500 Heart rate 102 /min Dr. Xiang Rogers DO Work Phone: [facility] 05-21-2024 17:26-0500 Respiratory rate 16 /min Dr. Xiang Rogers DO Work Phone: [facility] 05-21-2024 17:26-0500 SaO2% (BldA) [Mass fraction] 97 % Dr. Xiang Rogers DO Work Phone: [facility] 05-21-2024 17:26-0500 Systolic blood pressure 115 mm[Hg] Dr. Xiang Rogers DO Work Phone: [facility] 05-17-2024 12:50-0500 Body temperature 98 [degF] Dr. Xiang Rogers DO Work Phone: [facility] 05-17-2024 12:50-0500 Body weight 86.[address] Xiang Rogers DO Work Phone: [facility] 05-17-2024 12:50-0500 Diastolic blood pressure 70 mm[Hg] Dr. Xiang Rogers DO Work Phone: [facility] 05-17-2024 12:50-0500 Heart rate 90 /min Dr. Xiang Rogers DO Work Phone: [facility] 05-17-2024 12:50-0500 Respiratory rate 16 /min Dr. Xiang Rogers DO Work Phone: [facility] 05-17-2024 12:50-0500 SaO2% (BldA) [Mass fraction] 97 % Dr. Xiang Rogers DO Work Phone: [facility] 05-17-2024 12:50-0500 Systolic blood pressure 108 mm[Hg] Dr. Xiang Rogers DO Work Phone: [facility] 05-03-2024 10:53-0500 Body mass index (BMI) [Ratio] 27.6 kg/m2 Dr. Xiang Rogers DO Work Phone: [facility] 05-03-2024 10:53-0500 Body temperature 97.8 [degF] Dr. Xiang Rogers DO Work Phone: [facility] 05-03-2024 10:53-0500 Body weight 87.[address] Xiang Rogers DO Work Phone: [facility] 05-03-2024 10:53-0500 Diastolic blood pressure 62 mm[Hg] Dr. Xiang Rogers DO Work Phone: [facility] 05-03-2024 10:53-0500 Heart rate 93 /min Dr. Xiang Rogers DO Work Phone: [facility] 05-03-2024 10:53-0500 Respiratory rate 18 /min Dr. Xiang Rogers DO Work Phone: [facility] 05-03-2024 10:53-0500 SaO2% (BldA) [Mass fraction] 97 % Dr. Xiang Rogers DO Work Phone: [facility] 05-03-2024 10:53-0500 Systolic blood pressure 120 mm[Hg] Dr. Xiang Rogers DO Work Phone: [facility] 04-20-2024 07:15-0500 Body weight 87.[address] Xiang Rogers DO Work Phone: [facility] 04-19-2024 08:51-0500 Body mass index (BMI) [Ratio] 27.8 kg/m2 Dr. Xiang Rogers DO Work Phone: [facility] 04-08-2024 13:27-0500 Body temperature 98.2 [degF] Dr. Xiang Rogers DO Work Phone: [facility] 04-08-2024 13:27-0500 Body weight 87.[address] Xiang Rogers DO Work Phone: [facility] 04-08-2024 13:27-0500 Diastolic blood pressure 74 mm[Hg] Dr. Xiang Rogers DO Work Phone: [facility] 04-08-2024 13:27-0500 Heart rate 78 /min Dr. Xiang Rogers DO Work Phone: [facility] 04-08-2024 13:27-0500 Respiratory rate 16 /min Dr. Xiang Rogers DO Work Phone: [facility] 04-08-2024 13:27-0500 SaO2% (BldA) [Mass fraction] 97 % Dr. Xiang Rogers DO Work Phone: [facility] 04-08-2024 13:27-0500 Systolic blood pressure 127 mm[Hg] Dr. Xiang Rogers DO Work Phone: [facility] 04-01-2024 09:51-0500 Body mass index (BMI) [Ratio] 27.8 kg/m2 Dr. Xiang Rogers DO Work Phone: [facility] 04-01-2024 09:51-0500 Body weight 87.[address] Xiang Rogers DO Work Phone: [facility] 04-01-2024 09:51-0500 Diastolic blood pressure 80 mm[Hg] Dr. Xiang Rogers DO Work Phone: [facility] 04-01-2024 09:51-0500 Heart rate 76 /min Dr. Xiang Rogers DO Work Phone: [facility] 04-01-2024 09:51-0500 Respiratory rate 18 /min Dr. Xiang Rogers DO Work Phone: [facility] 04-01-2024 09:51-0500 SaO2% (BldA) [Mass fraction] 99 % Dr. Xiang Rogers DO Work Phone: [facility] 04-01-2024 09:51-0500 Systolic blood pressure 136 mm[Hg] Dr. Xiang Rogers DO Work Phone: [facility] 03-22-2024 11:03-0500 Body temperature 97.8 [degF] Dr. Xiang Rogers DO Work Phone: [facility] 03-22-2024 11:03-0500 Body weight 87.[address] Xiang Rogers DO Work Phone: [facility] 03-22-2024 11:03-0500 Diastolic blood pressure 59 mm[Hg] Dr. Xiang Rogers DO Work Phone: [facility] 03-22-2024 11:03-0500 Heart rate 90 /min Dr. Xiang Rogers DO Work Phone: [facility] 03-22-2024 11:03-0500 Respiratory rate 16 /min Dr. Xiang Rogers DO Work Phone: [facility] 03-22-2024 11:03-0500 SaO2% (BldA) [Mass fraction] 97 % Dr. Xiang Rogers DO Work Phone: [facility] 03-22-2024 11:03-0500 Systolic blood pressure 112 mm[Hg] Dr. Xiang Rogers DO Work Phone: [facility] 02-24-2024 13:07-0500 Body mass index (BMI) [Ratio] 27.9 kg/m2 Dr. Xiang Rogers DO Work Phone: [facility] 02-24-2024 13:07-0500 Body temperature 97.6 [degF] Dr. Xiang Rogers DO Work Phone: [facility] 02-24-2024 13:07-0500 Body weight 88.[address] Xiang Rogers DO Work Phone: [facility] 02-24-2024 13:07-0500 Diastolic blood pressure 76 mm[Hg] Dr. Xiang Rogers DO Work Phone: [facility] 02-24-2024 13:07-0500 Heart rate 72 /min Dr. Xiang Rogers DO Work Phone: [facility] 02-24-2024 13:07-0500 Respiratory rate 16 /min Dr. Xiang Rogers DO Work Phone: [facility] 02-24-2024 13:07-0500 SaO2% (BldA) [Mass fraction] 97 % Dr. Xiang Rogers DO Work Phone: [facility] 02-24-2024 13:07-0500 Systolic blood pressure 126 mm[Hg] Dr. Xiang Rogers DO Work Phone: [facility] 02-24-2024 11:24-0500 Body temperature 98.4 [degF] Dr. Xiang Rogers DO Work Phone: [facility] 02-24-2024 11:24-0500 Body weight 88.[address] Xiang Rogers DO Work Phone: [facility] 02-24-2024 11:24-0500 Diastolic blood pressure 61 mm[Hg] Dr. Xiang Rogers DO Work Phone: [facility] 02-24-2024 11:24-0500 Heart rate 64 /min Dr. Xiang Rogers DO Work Phone: [facility] 02-24-2024 11:24-0500 Respiratory rate 16 /min Dr. Xiang Rogers DO Work Phone: [facility] 02-24-2024 11:24-0500 SaO2% (BldA) [Mass fraction] 98 % Dr. Xiang Rogers DO Work Phone: [facility] 02-24-2024 11:24-0500 Systolic blood pressure 105 mm[Hg] Dr. Xiang Rogers DO Work Phone: [facility] 12-31-2023 09:26-0400 Body mass index (BMI) [Ratio] 25.95 kg/m2 [facility] [employer]ICE[employer] Work Phone: [facility] 12-31-2023 09:26-0400 Body temperature 97.5 [degF] [facility] [employer]OEMAKER APPRENTICE.[employer] INSTALLER Work Phone: [facility] 12-31-2023 09:26-0400 Body weight 84.4 kg [facility] [employer]OEMAKER APPRENTICE.[employer] INSTALLER Work Phone: [facility] 12-31-2023 09:26-0400 Diastolic blood pressure 75 mm[Hg] [facility] [employer]OEMAKER APPRENTICE.[employer] SO[employer] INSTALLER Work Phone: [facility] 12-31-2023 09:26-0400 Heart rate 78 /min [facility] [employer]OEMAKER APPRENTICE.[employer] INSTALLER Work Phone: [facility] 12-31-2023 09:26-0400 Respiratory rate 18 /min [facility] SHOEMAKER APPRENTICE.[employer] SO[employer] INSTALLER Work Phone: [facility] 12-31-2023 09:26-0400 SaO2% (BldA) [Mass fraction] 96 % [facility] [employer]OEMAKER APPRENTICE.[employer] INSTALLER Work Phone: [facility] 12-31-2023 09:26-0400 Systolic blood pressure 126 mm[Hg] [facility] [employer]OEMAKER APPRENTICE.[employer]ALLER Work Phone: [facility] 06-02-2023 12:53-0500 Body height 180.[address] Xiang Rogers Work Phone: [facility] 06-02-2023 12:53-0500 Body mass index (BMI) [Ratio] 26.9 kg/m2 Dr. Xiang Rogers Work Phone: [facility] 06-02-2023 12:53-0500 Body temperature 97.4 [degF] Dr. Xiang Rogers Work Phone: [facility] 06-02-2023 12:53-0500 Body weight 87.[address] Xiang Rogers Work Phone: [facility] 06-02-2023 12:53-0500 Diastolic blood pressure 66 mm[Hg] Dr. Xiang Rogers Work Phone: [facility] 06-02-2023 12:53-0500 Heart rate 60 /min Dr. Xiang Rogers Work Phone: [facility] 06-02-2023 12:53-0500 Respiratory rate 18 /min Dr. Xiang Rogers Work Phone: [facility] 06-02-2023 12:53-0500 SaO2% (BldA) [Mass fraction] 96 % Dr. Xiang Rogers Work Phone: [facility] 06-02-2023 12:53-0500 Systolic blood pressure 125 mm[Hg] Dr. Xiang Rogers Work Phone: [facility] 05-24-2023 02:38-0500 Body temperature 97.7 [degF] Dr. Xiang Rogers Work Phone: [facility] 05-24-2023 02:38-0500 Diastolic blood pressure 61 mm[Hg] Dr. Xiang Rogers Work Phone: [facility] 05-24-2023 02:38-0500 Heart rate 71 /min Dr. Xiang Rogers Work Phone: [facility] 05-24-2023 02:38-0500 Respiratory rate 18 /min Dr. Xiang Rogers Work Phone: [facility] 05-24-2023 02:38-0500 SaO2% (BldA) [Mass fraction] 96 % Dr. Xiang Rogers Work Phone: [facility] 05-24-2023 02:38-0500 Systolic blood pressure 99 mm[Hg] Dr. Xiang Rogers Work Phone: [facility] 05-24-2023 00:23-0500 Body height 180.[address] Xiang Rogers Work Phone: [facility] 05-24-2023 00:23-0500 Body mass index (BMI) [Ratio] 25.8 kg/m2 Dr. Xiang Rogers Work Phone: [facility] 05-24-2023 00:23-0500 Body weight [address] Xiang Rogers Work Phone: [facility] 04-25-2023 17:36-0500 Body temperature 95 [degF] Dr. Xiang Rogers Work Phone: [facility] 04-25-2023 17:36-0500 Diastolic blood pressure 73 mm[Hg] Dr. Xiang Rogers Work Phone: [facility] 04-25-2023 17:36-0500 Heart rate 67 /min Dr. Xiang Rogers Work Phone: [facility] 04-25-2023 17:36-0500 Respiratory rate 18 /min Dr. Xiang Rogers Work Phone: [facility] 04-25-2023 17:36-0500 Systolic blood pressure 139 mm[Hg] Dr. Xiang Rogers Work Phone: [facility] 04-25-2023 15:25-0500 Body height 180.[address] Xiang Rogers Work Phone: [facility] 04-25-2023 15:25-0500 Body mass index (BMI) [Ratio] 26.7 kg/m2 Dr. Xiang Rogers Work Phone: [facility] 04-25-2023 15:25-0500 Body weight 87.[address] Xiang Rogers Work Phone: [facility] 04-25-2023 15:25-0500 SaO2% (BldA) [Mass fraction] 96 % Dr. Xiang Rogers Work Phone: [facility] 04-15-2023 09:24-0500 Body height 180.[address] Xiang Rogers Work Phone: [facility] 04-15-2023 09:24-0500 Body mass index (BMI) [Ratio] 26.9 kg/m2 Dr. Xiang Rogers Work Phone: [facility] 04-15-2023 09:24-0500 Body temperature 97.2 [degF] Dr. Xiang Rogers Work Phone: [facility] 04-15-2023 09:24-0500 Body weight 87.[address] Xiang Rogers Work Phone: [facility] 04-15-2023 09:24-0500 Diastolic blood pressure 70 mm[Hg] Dr. Xiang Rogers Work Phone: [facility] 04-15-2023 09:24-0500 Heart rate 81 /min Dr. Xiang Rogers Work Phone: [facility] 04-15-2023 09:24-0500 Respiratory rate 16 /min Dr. Xiang Rogers Work Phone: [facility] 04-15-2023 09:24-0500 SaO2% (BldA) [Mass fraction] 98 % Dr. Xiang Rogers Work Phone: [facility] 04-15-2023 09:24-0500 Systolic blood pressure 128 mm[Hg] Dr. Xiang Rogers Work Phone: [facility] 01-26-2023 15:28-0400 Body mass index (BMI) [Ratio] 27.3 kg/m2 Dr. Xiang Rogers Work Phone: [facility] 01-26-2023 15:28-0400 Body weight 88.[address] Xiang Rogers Work Phone: [facility] 01-26-2023 15:28-0400 Diastolic blood pressure 56 mm[Hg] Dr. Xiang Rogers Work Phone: [facility] 01-26-2023 15:28-0400 Heart rate 70 /min Dr. Xiang Rogers Work Phone: [facility] 01-26-2023 15:28-0400 Respiratory rate 18 /min Dr. Xiang Rogers Work Phone: [facility] 01-26-2023 15:28-0400 Systolic blood pressure 118 mm[Hg] Dr. Xiang Rogers Work Phone: [facility] 01-13-2023 09:27-0400 Body mass index (BMI) [Ratio] 27 kg/m2 Dr. Xiang Rogers Work Phone: [facility] 01-13-2023 09:27-0400 Body temperature 98.4 [degF] Dr. Xiang Rogers Work Phone: [facility] 01-13-2023 09:27-0400 Body weight 87.[address] Xiang Rogers Work Phone: [facility] 01-13-2023 09:27-0400 Diastolic blood pressure 70 mm[Hg] Dr. Xiang Rogers Work Phone: [facility] 01-13-2023 09:27-0400 Heart rate 61 /min Dr. Xiang Rogers Work Phone: [facility] 01-13-2023 09:27-0400 Respiratory rate 16 /min Dr. Xiang Rogers Work Phone: [facility] 01-13-2023 09:27-0400 SaO2% (BldA) [Mass fraction] 97 % Dr. Xiang Rogers Work Phone: [facility] 01-13-2023 09:27-0400 Systolic blood pressure 120 mm[Hg] Dr. Xiang Rogers Work Phone: [facility] 05-21-2022 01:34-0500 Body height 180.[address] Xiang Rogers Work Phone: [facility] 05-21-2022 01:34-0500 Body mass index (BMI) [Ratio] 29.1 kg/m2 Dr. Xiang Rogers Work Phone: [facility] 05-21-2022 01:34-0500 Body temperature 98.8 [degF] Dr. Xiang Rogers Work Phone: [facility] 05-21-2022 01:34-0500 Body weight 94.[address] Xiang Roegrs Work Phone: [facility] 05-21-2022 01:34-0500 Diastolic blood pressure 79 mm[Hg] Dr. Xiang Rogers Work Phone: [facility] 05-21-2022 01:34-0500 Heart rate 74 /min Dr. Xiang Rogers Work Phone: [facility] 05-21-2022 01:34-0500 Respiratory rate 17 /min Dr. Xiang Rogers Work Phone: [facility] 05-21-2022 01:34-0500 SaO2% (BldA) [Mass fraction] 98 % Dr. Xiang Rogers Work Phone: [facility] 05-21-2022 01:34-0500 Systolic blood pressure 143 mm[Hg] Dr. Xiang Rogers Work Phone: [facility] 05-19-2022 13:35-0500 Body mass index (BMI) [Ratio] 28.5 kg/m2 Dr. Xiang Rogers Work Phone: [facility] 05-19-2022 13:35-0500 Body weight 92.[address] Xiang Rogers Work Phone: [facility] 05-19-2022 13:35-0500 Diastolic blood pressure 69 mm[Hg] Dr. Xiang Rogers Work Phone: [facility] 05-19-2022 13:35-0500 Heart rate 62 /min Dr. Xiang Rogers Work Phone: [facility] 05-19-2022 13:35-0500 Respiratory rate 18 /min Dr. Xiang Rogers Work Phone: [facility] 05-19-2022 13:35-0500 SaO2% (BldA) [Mass fraction] 96 % Dr. Xiang Rogers Work Phone: [facility] 05-19-2022 13:35-0500 Systolic blood pressure 128 mm[Hg] Dr. Xiang Rogers Work Phone: [facility] 04-24-2022 13:27-0500 Body mass index (BMI) [Ratio] 28.3 kg/m2 Dr. Xiang Rogers Work Phone: [facility] 04-24-2022 13:27-0500 Body temperature 98.3 [degF] Dr. Xiang Rogers Work Phone: [facility] 04-24-2022 13:27-0500 Body weight 92.[address] Xaing Rogers Work Phone: [facility] 04-24-2022 13:27-0500 Diastolic blood pressure 62 mm[Hg] Dr. Xiang Rogers Work Phone: [facility] 04-24-2022 13:27-0500 Heart rate 61 /min Dr. Xiang Rogers Work Phone: [facility] 04-24-2022 13:27-0500 Respiratory rate 14 /min Dr. Xiang Rogers Work Phone: [facility] 04-24-2022 13:27-0500 SaO2% (BldA) [Mass fraction] 97 % Dr. Xiang Rogers Work Phone: [facility] 04-24-2022 13:27-0500 Systolic blood pressure 104 mm[Hg] Dr. Xiang Rogers Work Phone: [facility] 04-19-2022 14:53-0500 SaO2% (BldA) [Mass fraction] 95 % Dr. Xiang Rogers Work Phone: [facility] 04-19-2022 09:30-0500 Body temperature 97.9 [degF] Dr. Xiang Rogers Work Phone: [facility] 04-19-2022 09:30-0500 Diastolic blood pressure 77 mm[Hg] Dr. Xiang Rogers Work Phone: [facility] 04-19-2022 09:30-0500 Heart rate 79 /min Dr. Xiang Rogers Work Phone: [facility] 04-19-2022 09:30-0500 Respiratory rate 20 /min Dr. Xiang Rogers Work Phone: [facility] 04-19-2022 09:30-0500 Systolic blood pressure 110 mm[Hg] Dr. Xiang Rogers Work Phone: [facility] 04-18-2022 10:11-0500 Body weight 93.[address] Xiang Rogers Work Phone: [facility] 04-18-2022 05:51-0500 Body temperature 98 [degF] Dr. Xiang Rogers Work Phone: [facility] Work Phone: 04-18-2022 05:51-0500 Diastolic blood pressure 76 mm[Hg] Dr. Xiang Rogers Work Phone: [facility] Work Phone: 04-18-2022 05:51-0500 Heart rate 80 /min Dr. Xiang Rogers Work Phone: [facility] Work Phone: 04-18-2022 05:51-0500 Respiratory rate 18 /min Dr. Xiang Rogers Work Phone: [facility] Work Phone: 04-18-2022 05:51-0500 SaO2% (BldA) [Mass fraction] 92 % Dr. Xiang Rogers Work Phone: [facility] Work Phone: 04-18-2022 05:51-0500 Systolic blood pressure 123 mm[Hg] Dr. Xiang Rogers Work Phone: [facility] Work Phone: 04-18-2022 01:36-0500 Body height 180.[address] Xiang Rogers Work Phone: [facility] Work Phone: 04-18-2022 01:36-0500 Body mass index (BMI) [Ratio] 28.6 kg/m2 Dr. Xiang Rogers Work Phone: [facility] 04-18-2022 01:36-0500 Body weight 93.[address] Xiang Rogers Work Phone: [facility] Work Phone: 04-09-2022 14:00-0500 Body mass index (BMI) [Ratio] 27.4 kg/m2 Dr. Xiang Rogers Work Phone: [facility] 04-09-2022 14:00-0500 Body temperature 98.4 [degF] Dr. Xiang Rogers Work Phone: [facility] 04-09-2022 14:00-0500 Body weight 89.[address] Xiang Rogers Work Phone: [facility] 04-09-2022 14:00-0500 Diastolic blood pressure 78 mm[Hg] Dr. Xiang Rogers Work Phone: [facility] 04-09-2022 14:00-0500 Heart rate 65 /min Dr. Xiang Rogers Work Phone: [facility] 04-09-2022 14:00-0500 Respiratory rate 16 /min Dr. Xiang Rogers Work Phone: [facility] 04-09-2022 14:00-0500 SaO2% (BldA) [Mass fraction] 99 % Dr. Xiang Rogers Work Phone: [facility] 04-09-2022 14:00-0500 Systolic blood pressure 132 mm[Hg] Dr. Xiang Rogers Work Phone: [facility] 03-11-2022 12:30-0500 Body height 180.[address] Xiang Rogers Work Phone: [facility] Work Phone: 03-11-2022 12:30-0500 Body mass index (BMI) [Ratio] 26.9 kg/m2 Dr. Xiang Rogers Work Phone: [facility] 03-11-2022 12:30-0500 Body temperature 98 [degF] Dr. Xiang Rogers Work Phone: [facility] 03-11-2022 12:30-0500 Body weight 87.[address] Xiang Rogers Work Phone: [facility] 03-11-2022 12:30-0500 Diastolic blood pressure 76 mm[Hg] Dr. Xiang Rogers Work Phone: [facility] 03-11-2022 12:30-0500 Heart rate 87 /min Dr. Xiang Rogers Work Phone: [facility] 03-11-2022 12:30-0500 Respiratory rate 16 /min Dr. Xiang Rogers Work Phone: [facility] 03-11-2022 12:30-0500 SaO2% (BldA) [Mass fraction] 97 % Dr. Xiang Rogers Work Phone: [facility] 03-11-2022 12:30-0500 Systolic blood pressure 153 mm[Hg] Dr. Xiang Rogers Work Phone: [facility] 03-01-2022 19:47-0500 Body height 180.[address] Xiang Rogers Work Phone: [facility] Work Phone: 03-01-2022 19:47-0500 Body mass index (BMI) [Ratio] 27.9 kg/m2 Dr. Xiang Rogers Work Phone: [facility] 03-01-2022 19:47-0500 Body temperature 96.8 [degF] Dr. Xiang Rogers Work Phone: [facility] 03-01-2022 19:47-0500 Body weight [address] Xiang Rogers Work Phone: [facility] 03-01-2022 19:47-0500 Diastolic blood pressure 75 mm[Hg] Dr. Xiang Rogers Work Phone: [facility] 03-01-2022 19:47-0500 Heart rate 103 /min Dr. Xiang Rogers Work Phone: [facility] 03-01-2022 19:47-0500 Respiratory rate 16 /min Dr. Xiang Rogers Work Phone: [facility] 03-01-2022 19:47-0500 SaO2% (BldA) [Mass fraction] 94 % Dr. Xiang Rogers Work Phone: [facility] 03-01-2022 19:47-0500 Systolic blood pressure 141 mm[Hg] Dr. Xiang Rogers Work Phone: [facility] 02-04-2022 08:30-0400 Body temperature 98.01 [degF] Yamilka Parekh MD Work Phone: [facility] 02-04-2022 08:30-0400 Body weight 87.18 kg Yamilka Parekh MD Work Phone: [facility] 02-04-2022 08:30-0400 Diastolic blood pressure 74 mm[Hg] Yamilka Parekh MD Work Phone: [facility] 02-04-2022 08:30-0400 Heart rate 80 /min Yamilka Parekh MD Work Phone: [facility] 02-04-2022 08:30-0400 SaO2% (BldA) [Mass fraction] 98 % Yamilka Parekh MD Work Phone: [facility] 02-04-2022 08:30-0400 Systolic blood pressure 128 mm[Hg] Yamilka Parekh MD Work Phone: [facility] 01-28-2022 10:40-0400 Body height 180.3 cm Yamilka Parekh MD Work Phone: [facility] 01-28-2022 10:40-0400 Body temperature 97.3 [degF] Yamilka Parekh MD Work Phone: [facility] 01-28-2022 10:40-0400 Body weight 87.36 kg Yamilka Parekh MD Work Phone: [facility] 01-28-2022 10:40-0400 Diastolic blood pressure 70 mm[Hg] Yamilka Parekh MD Work Phone: [facility] 01-28-2022 10:40-0400 Heart rate 79 /min Yamilka Parekh MD Work Phone: [facility] 01-28-2022 10:40-0400 SaO2% (BldA) [Mass fraction] 98 % Yamilka Parekh MD Work Phone: [facility] 01-28-2022 10:40-0400 Systolic blood pressure 124 mm[Hg] Yamilka Parekh MD Work Phone: [facility] 01-06-2022 09:25-0400 Body height 180.3 cm Yamilka Parekh MD Work Phone: [facility] 01-06-2022 09:25-0400 Body temperature 97.7 [degF] Yamilka Parekh MD Work Phone: [facility] 01-06-2022 09:25-0400 Body weight 88.27 kg Yamilka Parekh MD Work Phone: [facility] 01-06-2022 09:25-0400 Diastolic blood pressure 77 mm[Hg] Yamilka Parekh MD Work Phone: [facility] 01-06-2022 09:25-0400 Heart rate 84 /min Yamilka Parekh MD Work Phone: [facility] 01-06-2022 09:25-0400 SaO2% (BldA) [Mass fraction] 99 % Yamilka Parekh MD Work Phone: [facility] 01-06-2022 09:25-0400 Systolic blood pressure 160 mm[Hg] Yamilka Parekh MD Work Phone: [facility] 01-01-2022 14:08-0400 Body height 180.[address] Xiang Rogers Work Phone: [facility] Work Phone: 01-01-2022 14:08-0400 Body mass index (BMI) [Ratio] 27.3 kg/m2 Dr. Xiang Rogers Work Phone: [facility] Work Phone: 01-01-2022 14:08-0400 Body temperature 98.5 [degF] Dr. Xiang Rogers Work Phone: [facility] Work Phone: 01-01-2022 14:08-0400 Body weight 89.[address] Xiang Rogers Work Phone: [facility] Work Phone: 01-01-2022 14:08-0400 Diastolic blood pressure 64 mm[Hg] Dr. Xiang Rogers Work Phone: [facility] Work Phone: 01-01-2022 14:08-0400 Heart rate 64 /min Dr. Xiang Rogers Work Phone: [facility] Work Phone: 01-01-2022 14:08-0400 Respiratory rate 18 /min Dr. Xiang Rogers Work Phone: [facility] Work Phone: 01-01-2022 14:08-0400 SaO2% (BldA) [Mass fraction] 95 % Dr. Xiang Rogers Work Phone: [facility] Work Phone: 01-01-2022 14:08-0400 Systolic blood pressure 122 mm[Hg] Dr. Xiang Rogers Work Phone: [facility] Work Phone: 12-09-2021 01:16-0400 Diastolic blood pressure 71 mm[Hg] Dr. Xiang Rogers Work Phone: [facility] Work Phone: 12-09-2021 01:16-0400 Heart rate 74 /min Dr. Xiang Rogers Work Phone: [facility] Work Phone: 12-09-2021 01:16-0400 Respiratory rate 19 /min Dr. Xiang Rogers Work Phone: [facility] Work Phone: 12-09-2021 01:16-0400 SaO2% (BldA) [Mass fraction] 95 % Dr. Xiang Rogers Work Phone: [facility] Work Phone: 12-09-2021 01:16-0400 Systolic blood pressure 144 mm[Hg] Dr. Xiang Rogers Work Phone: [facility] Work Phone: 12-08-2021 23:18-0400 Body height 180.[address] Xiang Rogers Work Phone: [facility] Work Phone: 12-08-2021 23:18-0400 Body mass index (BMI) [Ratio] 26.4 kg/m2 Dr. Xiang Rogers Work Phone: [facility] Work Phone: 12-08-2021 23:18-0400 Body temperature 97.9 [degF] Dr. Xiang Rogers Work Phone: [facility] Work Phone: 12-08-2021 23:18-0400 Body weight 86.[address] Xiang Rogers Work Phone: [facility] Work Phone: 09-18-2021 14:32-0400 Body mass index (BMI) [Ratio] 26.7 kg/m2 Dr. Xiang Rogers Work Phone: [facility] Work Phone: 09-18-2021 14:32-0400 Body temperature 97.2 [degF] Dr. Xiang Rogers Work Phone: [facility] Work Phone: 09-18-2021 14:32-0400 Body weight 87.[address] Xiang Rogesr Work Phone: [facility] Work Phone: 09-18-2021 14:32-0400 Diastolic blood pressure 70 mm[Hg] Dr. Xiang Rogers Work Phone: [facility] Work Phone: 09-18-2021 14:32-0400 Heart rate 86 /min Dr. Xiang Rogers Work Phone: [facility] Work Phone: 09-18-2021 14:32-0400 Respiratory rate 16 /min Dr. Xiang Rogers Work Phone: [facility] Work Phone: 09-18-2021 14:32-0400 SaO2% (BldA) [Mass fraction] 97 % Dr. Xiang Rogers Work Phone: [facility] Work Phone: 09-18-2021 14:32-0400 Systolic blood pressure 116 mm[Hg] Dr. Xiang Rogers Work Phone: [facility] Work Phone: 07-19-2021 00:14-0400 Heart rate 78 /min Dr. Xiang Rogers Work Phone: [facility] Work Phone: 07-19-2021 00:14-0400 Respiratory rate 18 /min Dr. Xiang Rogers Work Phone: [facility] Work Phone: 07-19-2021 00:14-0400 SaO2% (BldA) [Mass fraction] 95 % Dr. Xiang Rogers Work Phone: [facility] Work Phone: 07-18-2021 20:48-0400 Body height 180.[address] Xiang Rogers Work Phone: [facility] Work Phone: 07-18-2021 20:48-0400 Body mass index (BMI) [Ratio] 26.9 kg/m2 Dr. Xiang Rogers Work Phone: [facility] Work Phone: 07-18-2021 20:48-0400 Body temperature 98.8 [degF] Dr. Xiang Rogers Work Phone: [facility] Work Phone: 07-18-2021 20:48-0400 Body weight 87.[address] Xiang Rogers Work Phone: [facility] Work Phone: 07-18-2021 20:48-0400 Diastolic blood pressure 83 mm[Hg] Dr. Xiang Rogers Work Phone: [facility] Work Phone: 07-18-2021 20:48-0400 Systolic blood pressure 151 mm[Hg] Dr. Xiang Rogers Work Phone: [facility] Work Phone: 07-18-2021 12:52-0400 Body temperature 98.01 [degF] Gab Culver SHOEMAKER APPRENTICE.WATER SOFTENER INSTALLER Work Phone: [facility] 07-18-2021 12:52-0400 Body weight 88 kg Gab Culver SHOEMAKER APPRENTICE.WATER SOFTENER INSTALLER Work Phone: [facility] 07-18-2021 12:52-0400 Diastolic blood pressure 74 mm[Hg] Gab Culver SHOEMAKER APPRENTICE.WATER SOFTENER INSTALLER Work Phone: [facility] 07-18-2021 12:52-0400 Heart rate 100 /min Gab Culver SHOEMAKER APPRENTICE.WATER SOFTENER INSTALLER Work Phone: [facility] 07-18-2021 12:52-0400 Respiratory rate 18 /min Gab Culver SHOEMAKER APPRENTICE.WATER SOFTENER INSTALLER Work Phone: [facility] 07-18-2021 12:52-0400 SaO2% (BldA) [Mass fraction] 96 % Gab Culver SHOEMAKER APPRENTICE.WATER SOFTENER INSTALLER Work Phone: [facility] 07-18-2021 12:52-0400 Systolic blood pressure 122 mm[Hg] Gab Culver SHOEMAKER APPRENTICE.WATER SOFTENER INSTALLER Work Phone: [facility] 06-13-2021 13:57-0500 Body temperature 97.8 [degF] Dr. Xiang Rogers Work Phone: [facility] Work Phone: 06-13-2021 13:57-0500 Body weight 88.[address] Xiang Rogers Work Phone: [facility] Work Phone: 06-13-2021 13:57-0500 Diastolic blood pressure 74 mm[Hg] Dr. Xiang Rogers Work Phone: [facility] Work Phone: 06-13-2021 13:57-0500 Heart rate 68 /min Dr. Xiang Rogers Work Phone: [facility] Work Phone: 06-13-2021 13:57-0500 Respiratory rate 16 /min Dr. Xiang Rogers Work Phone: [facility] Work Phone: 06-13-2021 13:57-0500 SaO2% (BldA) [Mass fraction] 98 % Dr. Xiang Rogers Work Phone: [facility] Work Phone: 06-13-2021 13:57-0500 Systolic blood pressure 130 mm[Hg] Dr. Xiang Rogers Work Phone: [facility] Work Phone: Encounters Encounter Date Encounter Type Care Provider Facility Start: 11-10-2024 End: 11-10-[address] Xiang Rogers DO Work Phone: -[facility] Start: 11-10-2024 End: 11-10-2024 Leah GARSIA -[facility] Work Phone: Start: 11-04-2024 End: 11-04-2024 Dr. Xiang Will DO -[facility] Work Phone: Start: 11-04-2024 End: 11-04-[address] Xiang Rogers DO Work Phone: -[facility] Start: 11-03-2024 End: 11-03-2024 Magaly Abdi [place] -[facility] Work Phone: Start: 11-03-2024 End: 11-03-[address] Xiang Rogers DO Work Phone: -[facility] Start: 10-26-2024 End: 10-27-2024 Dr. Xiang Rogers [...] Start: 10-11-2024 ambulatory Ronit Galvez NP Facili ty:[facility] Start: 09-27-2024 End: 09-27-2024 Magaly DEVINE -[facility] Work Phone: Start: 09-27-2024 End: 09-27-[address] Xiang Rogers DO Work Phone: [facility] Work Phone: Start: 09-21-2024 Dr. Donna Wolff MD -[facility] Work Phone: Start: 09-20-2024 Dr. Seth morales DO -[facility] Work Phone: Start: 09-19-2024 ambulatory Xiang Rogers Facilit y:[facility] Start: 09-19-2024 Dr. Seth morales DO -[facility] Work Phone: Start: 09-18-2024 End: 09-21-2024 ambulatory Clinton Soares Facility:[facility] Start: 09-18-2024 End: 09-21-2024 Evaluation and management of inpatient Dr. Xiang Rogers DO Work Phone: [facility] Work Phone: Start: 09-18-2024 End: 09-21-2024 Dr. Clinton Soares DO -Progressive Care Unit Work Phone: Start: 09-08-2024 End: 09-08-[address] Xiang Rogers DO Work Phone: [facility] Work Phone: Start: 09-08-2024 End: 09-08-2024 Dr. Saúl Flowers MD -[facility] Start: 09-08-2024 End: 09-08-2024 ambulatory Lubna Manley Facility:[facility] Start: 08-02-2024 End: 08-02-2024 Dr. Xiang Will DO -[facility] Work Phone: Start: 08-02-2024 End: 08-02-2024 ambulatory Xiang Rogers Facility:[facility] Start: 07-29-2024 End: 07-29-2024 Dr. Lawson Castellon DO -Emergency Departmen t Work Phone: Start: 07-29-2024 End: 07-29-2024 Emergency department patient visit Lawson Castellon Facility:[facility] Start: 07-14-2024 End: 07-14-2024 Lubna DEVINE -[facility] Work Phone: Start: 07-14-2024 End: 07-14-2024 ambulatory Xiang Rogers Facility:[facility] Start: 07-12-2024 End: 07-12-2024 Ronit Galvez NP-C -[facility] Work Phone: Start: 07-12-2024 End: 07-12-2024 ambulatory Xiang Rogers Facility:[facility] Start: 06-20-2024 ambulatory Calos Quinn Facility:[facility] Start: 06-20-2024 Dr. Seth morales DO -[facility] Work Phone: Start: 06-20-2024 Dr. Calos Quinn MD -[facility] Start: 06-19-2024 Dr. Alexandru Mckeon MD [facility] Start: 06-19-2024 Dr. Donna Wolff MD -[facility] Work Phone: Start: 06-18-2024 ambulatory Alexandru Mckeon Fa cility:[facility] Start: 06-18-2024 Dr. Alexandru Mckeon MD -[facility] Start: 06-18-2024 ambulatory Steve Esteban Facili ty:[facility] Start: 06-18-2024 End: 06-20-2024 Evaluation and management of inpatient Steve Esteban Facility:[facility] Start: 06-18-2024 End: 06-20-2024 Dr. Seth Carrington DO -Progressive Care Unit Work Phone: Start: 06-15-2024 ambulatory Magaly DEVINE Facility:[facility] Start: 06-15-2024 Non-patient / Non-visit Garret Saldana -[facility] Start: 06-15-2024 Magaly DEVINE [facility] Start: 06-13-2024 Non-patient / Non-visit Dr. Saúl talbert MD -[facility] Start: 06-13-2024 End: 06-13-[address] Xiang Rogers DO Work Phone: [facility] Work Phone: Start: 06-13-2024 End: 06-13-2024 Patient encounter procedure Lubna DEVINE -Cardiovascular Services Work Phone: Start: 06-13-2024 End: 06-13-2024 Dr. Saúl Flowers MD -[facility] Start: 06-13-2024 End: 06-13-2024 ambulatory Lubna Manley Facility:[facility] Start: 06-07-2024 ambulatory Kimberli Abby CUSTOMER SOLUTIONS TEAMMATE Facil ity:[facility] Start: 05-21-2024 End: 05-21-2024 Dr. Saúl Aguilar DO -Emergency Departme nt Work Phone: Start: 05-21-2024 End: 05-21-2024 Emergency department patient visit Dr. Saúl Aguilar DO -Emergency Department Work Phone: Start: 05-17-2024 End: 05-17-2024 Patient encounter procedure Lubna DEVINE -[facility] Work Phone: Start: 05-17-2024 End: 05-17-2024 Lubna DEVINE -[facility] Work Phone: Start: 05-17-2024 End: 05-17-2024 ambulatory Xiang Rogers Facility:[facility] Start: 05-09-2024 ambulatory Calos Quinn Facility:[facility] Start: 05-09-2024 Non-patient / Non-visit Dr. Ren WE[facility]BROOK -[facility] Start: 05-09-2024 End: 05-09-2024 Patient encounter procedure Magaly DEVINE -Cardiovascular Services Work Phone: Start: 05-09-2024 End: 05-09-2024 ambulatory Magaly DEVINE Facility:[facility] Start: 05-03-2024 End: 05-03-[address] Xiang Will DO -[facility] Work Phone: Start: 05-03-2024 End: 05-03-2024 ambulatory Xiang Rogers Facility:[facility] Start: 04-20-2024 ambulatory Saúl Flowers Facility:[facility] Start: 04-20-2024 Non-patient / Non-visit Dr. Saúl talbert MD -[facility] Start: 04-20-2024 End: 04-20-2024 Admission to same day surgery center Dr. Saúl Flowers MD -Automotive Sales Executive/Special Procedures Work Phone: Start: 04-20-2024 End: 04-20-2024 ambulatory [facility] Facility:[facility] Start: 04-08-2024 End: 04-08-2024 Patient encounter procedure Lubna DEVINE -[facility] Work Phone: Start: 04-08-2024 End: 04-08-2024 ambulatory [facility] Facility:[facility] Start: 04-01-2024 End: 04-01-2024 Patient encounter procedure Magaly DEVINE -[place] Work Phone: Start: 04-01-2024 End: 04-01-2024 ambulatory Xiang Rogers Facility:[facility] Start: 03-29-2024 End: 03-29-2024 Patient encounter procedure [facility] DEVINE [facility] Start: 03-29-2024 End: 03-29-2024 ambulatory Lubna Manley Facility:[facility] Start: 03-22-2024 End: 03-22-2024 Patient encounter procedure Lubna DEVINE [facility] V[facility] Work Phone: Start: 03-22-2024 End: 03-22-2024 ambulatory Xiang Rogers Facility:[facility] Start: 03-09-2024 ambulatory Jose Small Facili ty:[facility] Start: 03-09-2024 Non-patient / Non-visit Dr. Saúl talbert MD -[facility] Start: 03-09-2024 End: 03-09-2024 Patient encounter procedure Jose Small DPM -Cardiovascular Services Work Phone: Start: 03-09-2024 End: 03-09-2024 ambulatory Jose Small Facility:[facility] Start: 02-24-2024 End: 02-24-[address] Xiang Will DO -[facility] Work Phone: Start: 02-24-2024 End: 02-24-2024 ambulatory Xiang Rogers Facility:[facility] Start: 02-24-2024 End: 02-24-2024 Patient encounter procedure Lubna DEVINE -[facility] Work Phone: Start: 02-24-2024 End: 02-24-2024 ambulatory Xiang Rogers Facility:[facility] Start: 02-23-2024 End: 02-23-2024 ambulatory Ronit Galvez NP Facility:[facility] Start: 01-27-2024 ambulatory Xiang Rogers Facilit y:[facility] Start: 01-07-2024 End: 01-07-2024 ambulatory Xiang Rogers Facility:[facility] Start: 12-31-2023 End: 12-31-2023 Office outpatient visit 25 minutes Gab Culver APRN.CNP Work Phone: [facility] Comment on above: Sinobronchitis (Prim jagjit Dx) Start: 11-13-2023 ambulatory Xiang Rogers Facilit y:[facility] Start: 11-13-2023 End: 11-13-2023 ambulatory Xiagn Rogers Facility:[facility] Start: 06-02-2023 End: 06-02-[address] Xiang Rogers Work Phone: [facility] Work Phone: Start: 06-02-2023 End: 06-02-[address] Xiang Rogers Work Phone: [facility] Work Phone: Start: 05-24-2023 End: 05-24-2023 Emergency department patient visit Dr. Xiang Rogers Work Phone: [facility]-Emergency Department Work Phone: Start: 04-25-2023 End: 04-25-2023 Emergency department patient visit Dr. Xiang Rogers Work Phone: [facility]-Emergency Department Work Phone: Start: 04-15-2023 End: 04-15-[address] Xiang Rogers Work Phone: [facility] Work Phone: Start: 04-15-2023 End: 04-15-[address] Xiang Rogers Work Phone: [facility] Internal [facility] Work Phone: Start: 01-26-2023 End: 01-26-[address] Xiang Rogers Work Phone: [facility] Work Phone: Start: 01-13-2023 End: 01-13-[address] Xiang Rogers Work Phone: [facility] Internal [facility] Work Phone: Start: 06-02-2022 End: 06-02-[address] Xiang Rogers Work Phone: [facility] Work Phone: Start: 06-02-2022 End: 06-02-[address] Xiang Rogers Work Phone: [facility]-Laboratory Start: 05-23-2022 Non-patient / Non-visit Dr. Velazquez Work Phone: [facility] Start: 05-21-2022 End: 05-21-2022 Emergency department patient visit Dr. Xiang Rogers Work Phone: [facility]-Emergency Department Start: 05-19-2022 End: 05-19-[address] Xiang Rogers Work Phone: [facility] Start: 04-24-2022 End: 04-24-[address] Xiang Rogers Work Phone: [facility] Internal Medicine Start: 04-21-2022 Non-patient / Non-visit Dr. Velazquez Work Phone: [facility] Start: 04-19-2022 Non-patient / Non-visit Dr. Velazquez Work Phone: [facility] Start: 04-19-2022 Non-patient / Non-visit Dr. Velazquez Work Phone: [facility] Start: 04-18-2022 Non-patient / Non-visit Dr. Velazquez Work Phone: [facility] Start: 04-18-2022 End: 04-19-2022 Evaluation and management of inpatient Dr. Xiang Rogers Work Phone: [facility]-Intensive Care Unit Start: 04-09-2022 End: 04-09-[address] Xiang Rogers Work Phone: [facility] Internal Medicine Start: 03-11-2022 End: 03-11-[address] Xiang Rogers Work Phone: [facility] Work Phone: Start: 03-11-2022 End: 03-11-[address] Xiang Rogers Work Phone: [facility] Start: 03-01-2022 End: 03-01-2022 Emergency department patient visit Dr. Xiang Rogers Work Phone: [facility]-Emergency Department Start: 02-04-2022 End: 02-04-2022 ambulatory YAMILKA PAREKH Facility:[facility] Start: 02-04-2022 End: 02-04-2022 Patient encounter procedure Yamilka Parekh MD Work Phone: General Surgery Comment on above: Recurrent left ingui nal hernia (Primary Dx) Start: 01-28-2022 End: 01-28-2022 ambulatory YAMILKA PAREKH Facility:[facility] Start: 01-28-2022 End: 01-28-2022 Patient encounter procedure Yamilka Parekh MD Work Phone: General Surgery Comment on above: Left groin pain (Ruchi frantz Dx) Start: 01-28-2022 End: 01-28-2022 Subsequent hospital visit by physician [facility] ([facility] Work Phone: [facility] Comment on above: Left groin pain [R10 .32] Start: 01-08-2022 Non-patient / Non-visit Dr. Velazquez Work Phone: [facility] Start: 01-06-2022 End: 01-06-2022 ambulatory YAMILKA PAREKH Facility:[facility] Start: 01-06-2022 End: 01-06-2022 Patient encounter procedure Yamilka Parekh MD Work Phone: General Surgery Comment on above: Left groin pain (Ruchi frantz Dx) Start: 01-01-2022 End: 01-01-[address] Xiang Rogers Work Phone: [facility] Work Phone: Start: 01-01-2022 End: 01-01-[address] Xiang Rogers Work Phone: [facility] Internal [facility] Start: 12-08-2021 End: 12-09-2021 Emergency department patient visit Dr. Xiang Rogers Work Phone: [facility]-Emergency Department Start: 09-18-2021 End: 09-18-[address] Xiang Rogers Work Phone: [facility] Internal Medicine Start: 07-18-2021 End: 07-19-2021 Emergency department patient visit Dr. Xiang Rogers Work Phone: [facility] Start: 07-18-2021 End: 07-18-2021 ambulatory YAMILKA PAREKH Facility:[facility] Start: 07-18-2021 End: 07-18-2021 Patient encounter procedure Gab Culver APRN.CNP Work Phone: [facility] Comment on above: URI with cough and c ongestion (Primary Dx) Start: 06-13-2021 End: 06-13-[address] Xiang Rogers Work Phone: [facility] Start: 04-01-2021 End: 04-01-2021 ambulatory YAMILKAColton PAREKH [facility] Procedures Date Procedure Procedure Detail Performing [...] Start: 05-21-2024 Plain chest X-ray Dr. Jovana Rogres DO Work Phone: Start: 05-21-2024 SARS-CoV-2, Influenz [...] Adult depression scr eening assessment Gab Culver SHOEMAKER APPRENTICE.WATER SOFTENER INSTALLER Work Phone: Start: 04-06-2006 History of coronary [...] DTaP,Tdap,Td Vaccine (3 - Td or Tdap) [facility] Start: 10-27-2024 [facility] Start: 10-23-2024 [facility] Start: 10-21-2024 [facility] Start: 10-19-2024 [facility] Start: 09-21-2024 Patient discharge [facility] Start: 09-20-2024 [facility] Start: 09-19-2024 [facility] Start: 09-18-2024 Following clinical pathway protocol [facility] Start: 09-18-2024 Ambulation without limitation [facility] Start: 09-18-2024 Assessment of risk o f venous thromboembolism [facility] Start: 09-18-2024 Care regimes management [facility] Start: 09-18-2024 Insertion of cathete r into peripheral vein [facility] Start: 09-18-2024 Measuring intake and output [facility] Start: 09-18-2024 Notification of physician [facility] Start: 09-18-2024 Oxygen therapy [facility] Start: 09-18-2024 Providing care accor ding to standard [facility] Start: 09-18-2024 Referral to service [facility] Start: 09-18-2024 End: 09-18-2024 [facility] Start: 09-18-2024 Hospital admission, emergency, from emergency room, medical nature [facility] Start: 09-18-2024 Verification routine [facility] Start: 09-18-2024 Admission procedure [facility] Start: 09-18-2024 [facility] Start: 09-18-2024 Inhalation therapy procedure [facility] Start: 07-29-2024 [facility] Start: 07-29-2024 End: 07-29-2024 [facility] Start: 06-20-2024 Patient discharge [facility] Start: 06-19-2024 [facility] Start: 06-19-2024 [facility] Start: 06-18-2024 Assessment of risk o f venous thromboembolism [facility] Start: 06-18-2024 Care regimes management [facility] Start: 06-18-2024 Catheterization of vein [facility] Start: 06-18-2024 Continuous pulse oximetry [facility] Start: 06-18-2024 Elevation of head of bed [facility] Start: 06-18-2024 Insertion of cathete r into peripheral vein [facility] Start: 06-18-2024 Measuring intake and output [facility] Start: 06-18-2024 Notification of physician [facility] Start: 06-18-2024 Oxygen therapy [facility] Start: 06-18-2024 Providing care accor ding to standard [facility] Start: 06-18-2024 Referral to client development director [facility] Start: 06-18-2024 Referral to service [facility] Start: 06-18-2024 Tobacco use cessatio n education [facility] Start: 06-18-2024 Vital signs measurements [facility] Start: 06-18-2024 End: 06-18-2024 [facility] Start: 06-18-2024 Following clinical pathway protocol [facility] Start: 06-18-2024 End: 06-18-2024 Admission procedure [facility] Start: 06-18-2024 Dual pressure sponta neous ventilation support [facility] Start: 06-18-2024 Consultation [facility] Start: 06-18-2024 Inhalation therapy procedure [facility] Start: 06-17-2024 End: 06-18-2024 [facility] Start: 06-11-2024 Urine microalbumin profile DTaP,Tdap,Td Vaccine (2 - Td or Tdap) [facility] Start: 05-21-2024 [facility] Start: 05-21-2024 Airborne precautions [facility] Start: 05-09-2024 Echo tthrc r-t 2d w/wom-mode compl spec&colr d TTE W/DOPPLER COMPLETE [facility] Start: 04-20-2024 Patient discharge [facility] Start: 12-06-2023 Covid-19 Vaccine ( season) Covid-19 Vaccine ( season) [facility] Start: 12-06-2023 Influenza vaccination Influenza Vacc ine (#1) [facility] Start: 05-24-2023 Incision & drainage abscess simple/single I&D ABSCESS SIMPLE/SINGLE [facility] Start: 05-24-2023 [facility] Start: 04-25-2023 [facility] Start: 12-05-2022 Influenza vaccination Influenza Vacc ine (#1) [facility] Start: 05-23-2022 Patient referral [facility] Work Phone: Start: 04-21-2022 Patient referral [facility] Work Phone: Start: 04-19-2022 Patient discharge [facility] Start: 04-18-2022 Patient discharge [facility] Start: 04-18-2022 End: 04-18-2022 Provision of activity privileges [facility] Start: 04-18-2022 Scheduling [facility] Start: 04-18-2022 Vascular disease ris k assessment [facility] Start: 04-18-2022 End: 04-18-2022 Notification of physician [facility] Start: 04-18-2022 Patient education [facility] Start: 04-18-2022 Pulse taking [facility] Start: 04-18-2022 End: 04-18-2022 Taking patient vital signs [facility] Start: 04-18-2022 Wound care [facility] Start: 04-18-2022 End: 04-18-2022 [facility] Start: 04-18-2022 Catheterization of vein [facility] Start: 04-18-2022 Medication not administered [facility] Start: 04-18-2022 Notification of physician [facility] Start: 04-18-2022 [facility] Start: 04-18-2022 Following clinical pathway protocol [facility] Start: 04-18-2022 Assessment of risk o f venous thromboembolism [facility] Start: 04-18-2022 Care regimes management [facility] Start: 04-18-2022 Inhalation therapy procedure [facility] Start: 04-18-2022 Insertion of cathete r into peripheral vein [facility] Start: 04-18-2022 Measuring intake and output [facility] Start: 04-18-2022 Oxygen therapy [facility] Start: 04-18-2022 Providing care accor ding to standard [facility] Start: 04-18-2022 Provision of activit y privileges [facility] Start: 04-18-2022 Referral to client development director [facility] Start: 04-18-2022 Referral to occupati onal therapist [facility] Start: 04-18-2022 Referral to service [facility] Start: 04-18-2022 Tobacco use cessatio n education [facility] Start: 04-18-2022 [facility] Start: 04-18-2022 Verification routine [facility] Work Phone: Start: 04-18-2022 Admission procedure [facility] Start: 04-18-2022 [facility] Work Phone: Start: 04-06-2022 Depression Assessment Depression Ass essment [facility] Start: 12-05-2021 Influenza vaccination [facility] Start: 04-06-2021 DEPRESSION ASSESSMENT DEPRESSION ASS ESSMENT [facility] Start: 06-06-2020 PROSTATE CANCER SCRE ENING DISCUSSION PROSTATE CANCER SCREENING DISCUSSION [facility] Start: 06-06-2020 Prostate specific an tigen measurement Prostate Cancer Screening Discussion [facility] Start: 2020 Hepatitis B Vaccine (1 of 3 - Risk 3-dose series) Hepatitis B Vaccine (1 of 3 - Risk 3-dose series) [facility] Start: 2020 RSV Vaccine (1 - 1-d ose 60+ series) RSV Vaccine (1 - 1-dose 60+ series) [facility] Start: 2020 RSV Vaccine (1 - Ris k 60-74 years 1-dose series) RSV Vaccine (1 - Risk 60-74 years 1-dose series) [facility] Start: 06-18-2019 ANNUAL PCP TEAM HOT REPAIRMAN MIAN DISEASE VISIT ANNUAL PCP TEAM CHRONIC DISEASE VISIT [facility] Start: 12-23-2017 Adult depression screening assessment DEPRESSION SCREENING [facility] Start: 01-13-2017 3 comp foot exam completed DIABETIC FOOT EXAM [facility] Start: 01-13-2017 Diabetic foot examination Diabetic F oot Exam [facility] Start: 01-13-2017 Hepatitis B surface antibody level LDL CHOLESTEROL [facility] Start: 10-08-2016 PNEUMOCOCCAL (2 - PCV) PNEUMOCOCCAL (2 - PCV) [facility] Start: 10-08-2016 Pneumococcal vaccination [facility] Start: 04-15-2016 Hemoglobin A1c measurement HbA1C [facility] Start: 04-15-2016 Hemoglobin A1c/Hemoglobin.total in Blood HBA1C [facility] Start: 01-22-2015 Influenza vaccination LUNG CANCER [facility] Start: 01-22-2010 Influenza vaccination LUNG CANCER [facility] Start: 01-22-2010 Screening for malign ant neoplasm of lung Lung Cancer Screening [facility] Start: 01-22-2010 SHINGRIX VACCINE (1 of 2) NOVA GRIX VACCINE (1 of 2) [facility] Start: 01-22-2005 COLOGUARD (FIT-DNA) COLOGUARD (FIT-D NA) [facility] Start: 01-22-2005 Colonoscopy COLONOSCOPY [facility] Start: 01-22-2005 COLORECTAL CANCER SCREENING COLORECTAL CANCER SCREENING [facility] Start: 01-22-[address] COLONOGRAPHY [facility] Start: 01-22-2005 FECAL OCCULT BLOOD FECAL OCCULT BLOO D [facility] Start: 01-22-2005 Screening for malign ant neoplasm of colon [facility] Start: 01-22-2005 SIGMOIDOSCOPY SIGMOIDOSCOPY [facility] Start: 01-22-1979 Urine microalbumin profile DTAP,TDAP,TD (1 - Tdap) [facility] Start: 01-22-1978 ANNUAL PCP TEAM HOT REPAIRMAN MIAN DISEASE VISIT ANNUAL PCP TEAM CHRONIC DISEASE VISIT [facility] Start: 01-22-1978 Anxiety Screening Anxiety Screening [facility] Start: 01-22-1978 Depression Screening Depression Scre ening [facility] Start: 01-22-1978 HIV SCREENING HIV SCREENING [facility] Start: 01-22-1978 HIV screening HIV Screening [facility] Start: 01-22-1970 Glaucoma screening Dilated Retinal E xam [facility] Start: 01-22-1970 Hepatitis B screening URINE ALBUMIN:CREATININE RATIO [facility] Start: 01-22-1970 Hepatitis C antibody , confirmatory test DILATED RETINAL EXAM [facility] Start: 01-22-1965 COVID-19 VACCINE (1) COVID-19 VACCIN E (1) [facility] Start: 1960 COVID-19 VACCINE (#1) COVID-19 VACCI NE (#1) [facility] End: 02-05-2023 Ct pelvis w/o contrast material CT PELVIS WO IVCON Radiology Routine Left groin pain 1 Occurrences starting 01/06/2022 until 02/05/[address] [facility] Work Phone: Comment on above: 1 Occurrences starti ng 01/06/2022 until 02/05/2023 Hemoglobin A1c/Hemoglobin.total in Blood [facility] Work Phone: Hemoglobin A1c/Hemoglobin.total in Blood [facility] Lipid 1996 panel - S belinda or Plasma [facility] Patient Education [facility] Work Phone: Patient referral [facility] Work Phone: Troponin T.cardiac [Mass/volume] in Serum or Plasma by High sensitivity method [facility] US Carotid arteries [facility] US Heart limited [facility] Immunizations Immunization Date Immunization Notes Care Provider Karla gracia 04-25-2023 tetanus toxoid, redu jesse diphtheria toxoid, and acellular pertussis vaccine, adsorbed Dr. 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 Xiang Rogers Work Phone: [facility] Payers Date Payer Category Payer Self-pay [id number] 2023 Unknown [id number] 2023 Unknown NEVILLE LOZADA HI X [id number] 2023-Present [phone] [address] [address] [place] [address] HMO [id number] 2023 Unknown [id number] 2020 Medicaid [employer] [id number] 2020-Present [phone] [address] [place] [address] Medicaid [id number]. [id number] 2020 Medicaid [id number]. 1.13.159.2.7.3. [id number] 2020 Unknown [id number] 2014 Unknown [facility] TEGAN [id number] Unknown [id number] Unknown [id number] 2.16.840.1.514443.3.579.2.462 Unknown [id number] 2.16.840.1.775210.3.579.2.462 Unknown [id number] 2.16840.1.961669.3.579.2.462 Unknown [id number] 2.16840.1.347685.3.579.2.462 Unknown [id number] 2.16840.1.579394.3.579.2.462 Unknown [id number] 2.16840.1.700594.3.579.2.462 Unknown [id number] 2.16840.1.713428.3.579.2.462 Unknown [id number] 2.840.1.874298.3.579.2.462 Unknown [id number] 2.840.1.183291.3.579.2.462 Unknown [id number] 2.840.1.177041.3.579.2.462 Unknown [id number] 2.840.1.324492.3.579.2.462 Unknown [id number] 2.840.1.916947.3.579.2.462 Unknown [id number] 2.840.1.783248.3.579.2.462 Unknown [id number] 2.840.1.589157.3.579.2.462 Unknown [id number] 2.840.1.496984.3.579.2.462 Unknown [id number] 2.16840.1.999538.3.579.2.462 Unknown [id number] 2.16840.1.284584.3.579.2.462 Unknown [id number] 2.16840.1.676015.3.579.2.462 Unknown [id number] 2.16840.1.766333.3.579.2.462 Unknown [id number] 2.16.840.1.764458.3.579.2.462 Unknown [id number] 2.16.840.1.435496.3.579.2.462 Unknown [id number] 2.16.840.1.648746.3.579.2.462 Unknown [id number] 2.16.840.1.409175.3.579.2.462 Unknown [id number] 2.16.840.1.671087.3.579.2.462 Unknown [id number] 2.16.840.1.818578.3.579.2.462 Unknown [id number] 2.16.840.1.550431.3.579.2.462 Unknown [id number] 2.16.840.1.126798.3.579.2.462 Unknown [id number] 2.16.840.1.935947.3.579.2.462 Unknown [id number] 2.16.840.1.531368.3.579.2.462 Unknown [id number] 2.16.840.1.009179.3.579.2.462 Unknown [id number] 2.16.840.1.809608.3.579.2.462 Unknown [id number] 2.16.840.1.753332.3.579.2.462 Unknown [id number] 2.16.840.1.610203.3.579.2.462 Unknown [id number] 2.16.840.1.030254.3.579.2.462 Unknown [id number] 2.16.840.1.437296.3.579.2.462 Unknown [id number] 2.16.840.1.023867.3.579.2.462 Unknown [id number] 2.16.840.1.728596.3.579.2.462 Unknown [id number] 2.16.840.1.519317.3.579.2.462 Unknown [id number] 2.16.840.1.402241.3.579.2.462 Unknown [id number] 2.16.840.1.133109.3.579.2.462 Unknown [id number] 2.16.840.1.402860.3.579.2.462 Unknown [id number] 2.16.840.1.508346.3.579.2.462 Unknown [id number] 2.16.840.1.575931.3.579.2.462 Unknown [id number] 2.16.840.1.125719.3.579.2.462 Unknown [id number] 2.16.840.1.897835.3.579.2.462 Unknown [id number] 2.16.840.1.861574.3.579.2.462 Unknown [id number] 2.16.840.1.053180.3.579.2.462 Unknown [id number] 2.16.840.1.543514.3.579.2.462 Unknown [id number] 2.16.840.1.530972.3.579.2.462 Unknown [id number] 2.16.840.1.184926.3.579.2.462 Unknown [id number] 2.16.840.1.094887.3.579.2.462 Unknown [id number] 2.16.840.1.602760.3.579.2.462 Unknown [id number] 2.16.840.1.526504.3.579.2.462 Social History Date Type Detail Facility Start: 01-06-2022 End: 12-31-2023 Tobacco smoking status NHIS Smokes tobacco daily [facility] Work Phone: History of tobacco use Cigarette Smoker [facility] Start: 07-18-2021 End: 12-31-2023 Alcohol intake Current non-drinker of alcohol (finding) [facility] Start: 1960 Sex Assigned At Not on file [facility] Start: 07-08-2021 End: 02-04-2022 Exposure to SARS-CoV-2 (event) Not sure [facility] Start: 07-18-2021 End: 06-02-2023 Tobacco smoking status NHIS Unknown if ever smoked [facility] Start: 04-12-2019 None [facility] Start: 04-12-2019 Spouse/ Signif icant Other [facility] Start: 08-11-2020 Cigarettes [facility] Start: 1960 Sex Assigned At Male [facility] Start: 01-06-2022 End: 05-02-2022 Cigarettes smoked current (pack per day) - Reported 2 [facility] Start: 01-06-2022 End: 12-31-2023 Tobacco use and exposure Smokeless tobacco non-user [facility] Start: 01-06-2022 Tobacco Comment started at age 14 [facility] Start: 01-28-2022 End: 05-02-2022 Tobacco use panel [facility] National Score (1-10 0), lower number is lower risk Not on file [facility] Start: 06-17-2024 End: 10-21-2024 Tobacco smoking status NHIS Current Heavy tobacco smoker [facility] Start: 06-23-2024 Sex Male (finding) [facility] Start: 10-23-2024 End: 10-26-2024 Tobacco smoking status ILIS Current Light tobacco smoker [facility] Medical Equipment Procedure Code Equipment Code Equipment Origin al Text Equipment Identifier Dates [id number], [id number], [id number] Start: 01-21-2016 Comment on above: Test blood sugar(s) 2 daily. Dx: E11.65. Insulin: Yes Use one needle per d ose. 1 per day. Test blood sugar(s) 2 daily. Dx: E11.65 Insulin: Yes Blood Sugar Diagnostic (Freestyle Test) strip Start: 04-02-2021 Lancets (Freesty le [facility]ets) [facility] Start: 04-02-2021 Pen Needle, Diabetic (1st Tier [...] 04-02-2021 Pen Needle, Diabetic (Comfort Ez Pen [place]) 31 gauge x 5/16 needle Start: 10-28-2023 [...] Functional status Ambulates;Up a d andree;Bathroom Privilege [facility] Work Phone: 09-19-2024 Functional status None [facility] Work Phone: 06-20-2024 Functional status Chair [facility] Work Phone: 04-19-2022 Functional status Ambulates;Up ad andree [facility] Work Phone: Mental Status Date Assessment Result Facility 10-26-2024 Cognitive function Awake;Alert;A ppropriate;Follow s Commands [facility] Work Phone: 10-19-2024 Cognitive function Voice/Name [facility] Work Phone: 09-21-2024 Cognitive function Voice/Name [facility] Work Phone: 09-18-2024 Cognitive function Voice/Name [facility] Work Phone: 07-29-2024 Cognitive function Voice/Name [facility] Work Phone: 06-20-2024 Cognitive function Voice/Name [facility] Work Phone: 04-19-2022 Cognitive function Voice/Name [facility] Work Phone: 04-18-2022 Cognitive function Voice/Name [facility] Work Phone: 07-18-2021 Cognitive function Level Of Cons ciousness Awake;Alert;Appropriate [facility] Work Phone: Clinical Notes 06-11-2018 to 10-27-2024 Note Date & Type Note Facility 10-27-2024 Radiology Diagnostic study note [facility] 10-23-2024 Discharge summary Note Date/Time October 23, 2024 8:44pm [facility] Medical Records Department [address] [place] [address] Emergency Department Summary 10/23/24 MR#: [id number] Acct: [id number] Name: JAYLEN MEJIA Sr. Rep #:[id number] : 1960 64 From: Devin Curry MD PCP: Dr. Xiang Rogers, DO Status:RE G ER Location: ED HPI History of Present Illness Chief Complaint: Cellulitis Informant: patient Onset/Context/Timing Onset: Days Context: Gradual Onset Timing: Continuous Current Severity: Mild Maximum Severity: Mild Narrative Narrative: 64-year-old male history of insulin-dependent diabetes, hypertension, MA, COPD, CHF. Recent admission last several weeks for CHF. States has had swelling in his lower extremities but now the red, warm and painful. He said he had breaking of pustules and pus on his legs. He denies any fever or chills. Denies any chest pain or shortness of breath. Prior similar symptoms: No Recent Illness/Hospitalization: Yes [facility] Medical History GERD (gastroesophageal reflux disease) Anxiety [...] Nicotine dependence Atherosclerosis of coronary artery of [place] heart without angina pectoris Hyperlipidemia Essential (primary) [...] Unkno wn Rx /16 (Comfort EZ Pen [place]) evolocumab 140 mg/mL subcutaneous 140 mg subcut [...] % (Auto) 68.5 Lymph % (Auto) 21.6 Grand % (Auto) 6.1 Eos % (Auto) 3.4 [...] (DME) pen needle, diabetic [Comfort EZ Pen [place]] 31 gauge x 5/16 needle See Rx [...] week. Return if feeling worse. Print Language: Guamanian Disposition Disposition: Home, Self Care What to do if you have Problems For any increased pain, shortness of breath, bleeding, nausea or vomiting, chestpain, or any unexpected problems, contact your Primary Care Provider. Call [facility] ([phone]) or report to the closest Emergency Room. Call 911 if necessary. 10/23/242043 <Electronically signed by Devin Curry MD> Cosigner Signature (if applicable): CC: Dr. Xiang Rogers DO ~ Signed [facility] Work Phone: 1(999) 630-730907-20-2025 Hospital Discharge instructionsAdditional Instructions The antibiotic clindamycin [...] evaluation later this week. Return if feeling worse.[facility] Work Phone: 1(720) 945-612407-16-2025 Radiology Diagnostic study [facility]07-16-2025 Discharge summary Author Valentín Miller [facility] Note Date/Time October 19, 2024 11:2 1pm [facility] Medical Records Department [address] [place] [address] Emergency Department Summary 10/19/24 MR#: [id number] Acct: [id number] Name: JAYLEN MEJIA Sr. Rep #:[id number] : 1960 64 From: Valentín Saravia PCP: Dr. Xiang R Brown, DO Status:RE G ER Location: ED HPI History of Present Illness Chief Complaint: Chest Pain [facility] Medical History GERD (gastroesophageal reflux disease) Anxiety [...] Nicotine dependence Atherosclerosis of coronary artery of [place] heart without angina pectoris Hyperlipidemia Essential (primary) [...] Unkno wn Rx 5/16 (Comfort EZ Pen [place]) evolocumab 140 mg/mL subcutaneous 140 mg subcut [...] Pulse Ox 97 98 Oxygen Delivery Method [facility] Narrative Medical decision making narrative: HISTORY OF [...] History obtained from others: none Consults: none [facility] Narrative: The patient was initially tachycardic with [...] of breath. The patient ruled out by [facility] high-sensitivity troponin protocol for ACS. It [...] Discharge home This note was generated with [employer] dictation software. It may contain incorrectwords, spelling, [...] % (Auto) 65.7 Lymph % (Auto) 24.7 Grand % (Auto) 6.1 Eos % (Auto) 3.1 [...] evidence of acute cardiopulmonary disease. Reading Location: [id number] Discharge Plan Triage Chief Complaint: Chest Pain [...] (DME) pen needle, diabetic [Comfort EZ Pen [place]] 31 gauge x 5/16 needle See Rx [...] [Primary Care Provider] - Jose Garcia MD [[facility] Staff - Active Staff] - Activity Restrictions/Additional Instructions: Thank you for trusting us with your care today! Please take prescribed Lasix. Please return to the emergency department if your symptoms change or worsen. Specifically develop worsening chest pain, leg swelling or shortness of breath. Please follow with your primary care physician for further outpatient evaluationand management. Print Language: Guamanian Disposition Disposition: Home, Self Care What to do if you have Problems For any increased pain, shortness of breath, bleeding, nausea or vomiting, chestpain, or any unexpected problems, contact your Primary Care Provider. Call [facility] ([phone]) or report to the closest Emergency Room. Call 911 if necessary. 10/19/24 5196 <Electronically signed by Valentín Miller DO> Cosigner Signature (if applicable): CC: Dr. Xiang Rogers DO ~ Signed [facility] Work Phone: 1(895) 856-398606-18-2025 Discharge summary Author Donna Wolff [facility] Note Date/Time September 21, 2024 4:22 pm [facility] Medical Records Department [address] [place] [address] Instructions for Home/Discharge Instructions 09/21/24 1537 MR#: [id number] Acct: [id number] Name: JAYLEN MEJIA Sr. Rep #:[id number] [...] When you eat out, ask that the journeyman wireman not add any salt to your dish. Don't eat fried or greasy foods. Be careful of bottled beverages. They can contain a lot of salt -Call 911 right away if you have: -Severe shortness of breath, such that you can't catch your breath even while resting -Severe chest pain that does not resolve with rest or nitroglycerin -[place], foamy mucus with cough and shortness of [...] (DME) pen needle, diabetic [Comfort EZ Pen [place]] 31 gauge x 5/16 needle See Rx [...] Week Magaly Abdi PA [Med Staff - [facility] Practice Prof] - Within 2 Weeks Disposition Disposition (needs filled in before D/C Order can be placed): Home, Self Care 09/21/24 1622<Electronically signed by Donna Wolff MD>Donna Wolff MD CC: Dr. Clinton Soares, ; Dr. Xiang Rogers DO; Dr. Seth Carrington DO ~ Signed [facility] Work Phone: 1(885) 672-834906-18-2025 [facility]06-17-2025 Progress note Author [facility] Note Date/Time September 20, 2024 7:12 pm [facility] Medical Records Department [address] [place] [address] Progress Note - Hospitalist 09/20/24 1910 MR#: [id number] Acct: [id number] Name: JAYLEN MEJIA Hannah Sr. Rep #:[id number] : 1960 64 From: Seth Carrington DO PCP: Dr. Xiang Rogers DO Status:AD M IN Location: [place] [id number]- Hospitalist Note Additional note: Per my review [...] 20 mg daily, Zetia 10 mg daily, Xdpabh58 mg daily. Patient is not taking the following medications: Spironolactone 25 mg daily, Lasix 40 mg twice daily, atorvastatin 80 mg daily, metformin 1000 mg twice daily, Pletal 50 mg daily. 09/20/241911 <Electronically signed by Seth Carrington DO> Cosigner Signature (if applicable): CC: ~ Signed [facility] Work Phone: 1(240) 109-583706-17-2025 Progress note Author [facility] Note Date/Time September 20, 2024 6:38 pm [facility] Medical Records Department [address] [place] [address] Progress Note - Hospitalist 09/19/241899 MR#: [id number] Acct: [id number] Name: JAYLEN MEJIA Sr. Rep #:[id number] : 1960 64 From: Seth Carrington DO PCP: Dr. Xiang Rogers, DO Status:AD M IN Location: [place] [address] Reason for Visit Reason for Visit: Diagnoses [...] fraction is 35 %. Normal LV size. [place] : Akinetic. Mid-Anterior : Severely Hypokinetic. Compared [...] 50 minutes Charges/Coding Visit Charges Inpatient E&M: 15656 [facility] Hosp 09/20/24 1838 <Electronically signed by Seth Carrington DO> Cosigner Signature (if applicable): CC: ~ Signed [facility] Work Phone: 1(482) 552-688206-16-2025 Discharge summary Author Saúl Aguilar [facility] Note Date/Time September 18, 2024 10:3 5pm [facility] Medical Records Department [address] [place] [address] Emergency Department Summary 09/18/24 MR#: [id number] Acct: [id number] Name: JAYLEN MEJIA Hannah Schmitt. Rep #:[id number] : 1960 64 From: Saúl Saravia PCP: Dr. Xiang Rogers, DO Status:AD M IN Location: [address] History of Present Illness Chief Complaint: [...] Nicotine dependence Atherosclerosis of coronary artery of [place] heart without angina pectoris Hyperlipidemia Essential (primary) [...] Unkno wn Rx 08/19 (Comfort EZ Pen [place]) evolocumab 140 mg/mL subcutaneous 140 mg subcut [...] % (Auto) 61.9 Lymph % (Auto) 27.0 Grand % (Auto) 6.7 Eos % (Auto) 3.7 [...] 10:26 IMPRESSION: No Acute Findings. Reading Location: [id number] Portable 1 view chest x-ray was obtained. [...] asinus tachycardia with a rate of 103. AL interval, QRS interval, and QTc intervals were all normal. [place] was normal. There are nonspecific ST-T wave [...] (DME) pen needle, diabetic [Comfort EZ Pen [place]] 31 gauge x 5/16 needle See Rx [...] Rogers, [Primary Care Provider] - Print Language: Guamanian Disposition Disposition: Acute Care Hospital [facility] What to do if you have Problems For any increased pain, shortness of breath, bleeding, nausea or vomiting, chestpain, or any unexpected problems, contact your Primary Care Provider. Call [facility] ([phone]) or report to the closest Emergency Room. Call 911 if necessary. 09/18/242234 <Electronically signed by Saúl Aguilar DO> Cosigner Signature (if applicable): CC: Dr. Xiang Rogers DO ~ Signed [facility] Work Phone: 1(744) 907-324106-15-2025 History and physical note Author Clinton Soares [facility] Note Date/Time September 18, 2024 2:16 pm [facility] Medical Records Department [address] [place] [address] H&P Exam - Hospitalist 09/18/24 1339 MR#: [id number] Acct: [id number] Name: ROBERTOJAYLEN L Sr. Rep #:[id number] : 1960 64 From: Clinton khan DO PCP: Dr. Xiang Rogers DO Status:AD M IN Location: [facility] [id number]- 1 HPI - General General Date of Admission: 09/18/24 Date of Service: 09/18/24 Chief Complaint: Shortness of breath and chest discomfort HPI Narrative JAYLEN MEJIA, is a 64 M who presented to [facility] ED on 09/18/2024 with chest pain [...] Nicotine dependence Atherosclerosis of coronary artery of [place] heart without angina pectoris Hyperlipidemia Essential (primary) [...] Unkno wn Rx 08/19 (Comfort EZ Pen [place]) evolocumab 140 mg/mL subcutaneous 140 mg subcut [...] % (Auto) 61.9, Lymph % (Auto) 27.0, Grand% (Auto) 6.7, Eos % (Auto) 3.7, Baso [...] 10:26 IMPRESSION: No Acute Findings. Reading Location: [id number] Assessment & Plan Assessment/Plan (1) Acute on chronic HFrEF (heart failure with reduced ejection fraction): PLAN: Plan Patient is a 64-year-old male who presented to [facility] ED on 09/18/2024 with shortness of [...] with A1c values consistently above 10% since [id number]. Repeat A1c ordered. Glucose 184 on admit. [...] 75 minutes. Charges/Coding Visit Charges Inpatient E&M: 73334 Init Hosp L3 09/18/24 1416 <Electronically signed by Clinton Soares DO> Cosigner Signature (if applicable): CC: Dr. Clinton Soares, DO; Dr. Xiang Rogers, DO~ Signed [facility] Work Phone: 1(253) 870-923206-15-2025 Radiology Diagnostic study [facility]04-10-2025 Evaluation note* Diagnosis Onset Date Resolution Status [...] ejection fraction) chronic November 10, 2024 10:05am [facility] Work Phone: 1(807) 757-118404-08-2025 Evaluation note* Diagnosis Onset Date Resolution Status [...] surgery 2007 resolved September 27, 2024 9:55am [facility] Work Phone: 1(208) 232-177504-08-2025 Evaluation note* Diagnosis Onset Date Resolution Status [...] 2007 resolved November 03, 2024 10:15am [facility] Work Phone: 1(786) 714-180003-17-2025 [facility]03-15-2025 Evaluation note* Diagnosis Onset Date Resolution [...] ejection fraction) chronic September 18, 2024 1:39pm [facility] Work Phone: 1(898) 991-416703-15-2025 Evaluation note* Diagnosis Onset Date Resolution Status [...] 2007 resolved September 27, 2024 9:[address] [facility] Work Phone: 1(632) 892-763203-12-2025 [facility]02-11-2025 Evaluation note* Diagnosis Onset Date Resolution [...] Nicotine dependence chronic August 02, 2024 11:21am [facility] Work Phone: [phone]) 623-575911-20-2024 Evaluation note* Diagnosis Onset Date Resolution Status [...] er extremity with ulceration acute 2024 12:40pm [facility] Work Phone: 1(340) 517-228409-26-2024 History of Present illness Narrative* Gab Culver APRN.WATER SOFTENER INSTALLER - 12/31/2023 9:33 AM EDT Subjective HPI [...] non-ST elevation myocardial infarction (NSTEMI) 06/11/[address] Herrera Espinosa Hypertension Other emphysema (HCC) [...] of care. This note was generated using Yu Rong software. It may contain errors in wording, punctuation, or spelling. Gab Culver APRN.WATER SOFTENER INSTALLER documented in this encounter[facility]02-15-2023 Hospital Discharge instructions Additional Instructions Your x-ray [...] please [facility] the [facility] Work Phone: 1(842) 536-544011-01-2022 NoteHNO ID: [id number] Author: Yamilka Parekh MD Service: ? Author [...] non-ST elevation myocardial infarction (NSTEMI) 06/11/[address] Herrera Espinosa Hypertension Other emphysema (HCC) [...] any blood vessels/nerv (more content not included)... [facility]11-01-2022 History of Present illness Narrative* Yamilka [...] non-ST elevation myocardial infarction (NSTEMI) 06/11/[address] Herrera Espinosa Hypertension Other emphysema (HCC) [...] Straightforward Yamilka Parekh MD documented in this encounterTrihealth10-25-2022 NoteHNO ID: [id number] Author: Yamilka Parekh MD Service: ? Author [...] non-ST elevation myocardial infarction (NSTEMI) 06/11/[address] Herrera Espinosa Hypertension Other emphysema (HCC) [...] and completing appropriate m (more content not included)...[facility]10-25-2022 History of Present illness Narrative* Yamilka [...] non-ST elevation myocardial infarction (NSTEMI) 06/11/[address] Herrera Espinosa Hypertension Other emphysema (HCC) [...] documentation. Yamilka Parekh MD documented in this encounterTrihealth10-25-2022 NoteHNO ID: [id number] Author: ROBLES Leblanc) Service: ? Author Type: Speech Coach Type: Progress Notes Filed: 01/28/2022 3:01 PM [...] BY: ROBLES Meyer) January 28, 2022 3:01 [facility]10-25-2022 History of Present illness Narrative* Hazel Bright [...] 28, 2022 3:01 PM documented in this encounterTrihealth10-03-2022 NoteHNO ID: [id number] Author: Yamilka Parekh MD Service: ? Author [...] non-ST elevation myocardial infarction (NSTEMI) 06/11/[address] Herrera Espinosa Hypertension Other emphysema (HCC) [...] REVIEW OF SYSTEMS: General: (more content not included)...[facility]10-03-2022 History of Present illness Narrative* Yamilka [...] non-ST elevation myocardial infarction (NSTEMI) 06/11/[address] Herrera Espinosa Hypertension Other emphysema (HCC) [...] entered by the nurse and reviewed by ar Nursing Notes: Allison Haines RN 01/06/2022 9:32 [...] of any pertinent laboratory studies/radiological imaging/medical records, lgkz-hf-vwwhvsxhsky care, obtaining oral medical history from the patient in this encounter, performing a medically appropriate examination, counseling and educating the patient/family/caregiver, and ordering and/or scheduling of medications/tests/procedures, and completing appropriate medical documentation. Yamilka Parekh MD documented in this encounterTrihealth10-03-2022 Nurse Note* Allison Haines RN - 01/06/2022 [...] Unknown Allison Haines RN documented in this encounterTrihealth04-14-2022 NoteHNO ID: [id number] Author: Gab Culver APRN.WATER SOFTENER INSTALLER Service: ? Author Type: Nurse Practitioner Type: [...] type 2 in obese (HCC) - Hyperlipidemia Traffic Recorder Dr. Herrera Espinosa - Hypertension - Pancreatitis [...] He is not diaphoretic (more content not included)...[facility]04-14-2022 Instructions* Patient Instructions* Gab Culver APRN.WATER SOFTENER INSTALLER - 07/18/2021 1:15 PM EDT RESPIRATORY INFECTION [...] spread by coughs, sneezes, anddirect contact, especially [id number]. A respiratory tract infection usually clears up [...] 102 F (39 C). documented in this encounterTrihealth04-14-2022 History of Present illness Narrative* Gab Culver [...] mellitus type 2 in obese (HCC) Hyperlipidemia Traffic Recorder Dr. Herrera Espinosa Hypertension Pancreatitis Tobacco use [...] of care. This note was generated using Yu Rong software. It may contain errors in wording,punctuation, or spelling. Gab Culver APRN.TURNER documented in this encounterTrihealth12-27-2021 NoteHNO ID: [id number] Author: Maxx Owen APRN.TURNER Service: ? Author [...] type 2 in obese (HCC) - Hyperlipidemia Traffic Recorder Dr. 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 Hyperlipidemia chronic Insulin dependent diabetes mellitus chronic H/O coronary artery bypass surgery 2007 resolved [facility] Work Phone: Evaluation note* Diagnosis Onset Date Resolution Status Essential (primary) hypertension chronic Insulin dependent diabetes mellitus chronic Stenosis of right carotid artery chronic H/O coronary artery bypass surgery 2007 resolved [facility] Work Phone: Evaluation note* Diagnosis Onset Date Resolution Status Essential (primary) hypertension chronic Insulin dependent diabetes mellitus chronic Stenosis of right carotid artery chronic H/O coronary artery bypass surgery 2006 resolved Essential (primary) hypertension chronic Insulin dependent diabetes mellitus chronic Stenosis of right carotid artery chronic [facility] Work Phone: Evaluation note* Diagnosis Left groin pain- Primary Abdominal pain, left lower quadrant [facility]* Diagnosis Left groin pain- Primary Abdominal pain, left lower quadrant [facility]* Diagnosis Recurrent left inguinal hernia- Primary Inguinal hernia without mention of obstruction or gangrene, recurrent unilateral or unspecified documented in this encounter [facility]* Diagnosis Onset Date Resolution Status Essential (primary) hypertension chronic Insulin dependent diabetes mellitus chronic Stenosis of right carotid artery chronic [facility] Work Phone: Evaluation note* Diagnosis Onset Date Resolution Status Essential (primary) hypertension chronic Insulin dependent diabetes mellitus chronic Stenosis of right carotid artery chronic [id number] acute Nicotine dependence [facility] Work Phone: Evaluation note* Diagnosis Onset Date Resolution Status Essential (primary) hypertension chronic Insulin dependent diabetes mellitus chronic Stenosis of right carotid artery chronic [id number] acute Nicotine dependence chronic Essential (primary) hypertension chronic Hyperlipidemia chronic Insulin dependent diabetes mellitus chronic H/O coronary artery bypass surgery 2007 resolved NSTEMI, initial episode of care acute Insulin dependent diabetes mellitus chronic Nicotine dependence chronic [facility] Work Phone: Evaluation note* Diagnosis Onset Date Resolution Status [id number] acute Nicotine dependence chronic Essential (primary) hypertension [...] H/O coronary artery bypass surgery 2007 resolved [facility] Work Phone: Evaluation note* Diagnosis Left groin pain Abdominal pain, left lower quadrant documented in this encounter [facility]* Diagnosis Onset Date Resolution Status Essential (primary) hypertension chronic Hyperlipidemia chronic Nicotine dependence chronic Stenosis of right carotid artery chronic H/O coronary artery bypass surgery 2006 resolved Non-STEMI (non-ST elevated myocardial infarction) acute 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 Essential (primary) hypertension chronic Insulin dependent diabetes mellitus chronic Nicotine dependence chronic [facility] Work Phone: Evaluation note* Diagnosis Onset Date Resolution Status Non-STEMI (non-ST elevated myocardial infarction) acute 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 Essential (primary) hypertension chronic Insulin dependent diabetes mellitus chronic Nicotine dependence chronic [id number] acute Nicotine dependence chronic [facility] Work Phone: Evaluation note* Diagnosis Sinobronchitis- Primary Unspecified sinusitis (chronic) [facility] Note Date/Time September 18, 2024 2:16 pm [facility] Medical Records Department [address] [place] [address] H&P Exam - Hospitalist 09/18/24 1339 MR#: [id number] Acct: [id number] Name: JAYLEN MEJIA Sr. Rep #:[id number] : 1960 64 From: Clinton khan DO PCP: Dr. Xiang Rogers, DO Status:AD M IN Location: [facility] [id number]- 1 HPI - General General Date of Admission: 09/18/24 Date of Service: 09/18/24 Chief Complaint: Shortness of breath and chest discomfort HPI Narrative JAYLEN MEJIA, is a 64 M who presented to [facility] ED on 09/18/2024 with chest pain and volume overload. [facility]. Has [facility] [...] Nicotine dependence Atherosclerosis of coronary artery of [place] heart without angina pectoris Hyperlipidemia Essential (primary) [...] Unkno wn Rx 08/19 (Comfort EZ Pen [place]) evolocumab 140 mg/mL subcutaneous 140 mg subcut [...] % (Auto) 61.9, Lymph % (Auto) 27.0, Grand% (Auto) 6.7, Eos % (Auto) 3.7, Baso [...] 10:26 IMPRESSION: No Acute Findings. Reading Location: [id number] Assessment & Plan Assessment/Plan (1) Acute on chronic HFrEF (heart failure with reduced ejection fraction): PLAN: Plan Patient is a 64-year-old male who presented to [facility] ED on 09/18/2024 with shortness of [...] with A1c values consistently above 10% since [id number]. Repeat A1c ordered. Glucose 184 on admit. [...] 75 minutes. Charges/Coding Visit Charges Inpatient E&M: 45788 Init Hosp L3 09/18/24 1411 <Electronically signed by Clinton oSares DO> Cosigner Signature (if applicable): CC: Dr. Clinton Soares, DO; Dr. Xiang Rogers, DO~ Signed [facility] Work Phone: Hospital Discharge instructionsAdditional Instructions Thank you for trusting us with your care today! Please take prescribed Lasix. Please return to the emergency department if your symptoms change or worsen. Specifically develop worsening chest pain, leg swelling or shortness of breath. 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 Advance Directive(s) 01/20/2017 7:47 AM Advance Directive(s) 09/05/2015 4:07 PM Advance Directive Response Recorded Date/ Time Advance Directives No January 13, 2020 3:59pm Living Will No July 18, 2021 9:19pm Power of Precision Farming Specialist No July 18 9:19pm Advance Directive Response Recorded Date/ Time Advance Directives No January 13, 2020 3:59pm Living Will No December 08 022 11:25pm Power of Precision Farming Specialist No December 08, 2021 11:25pm Advance Directive Response Recorded Date/ Time Advance Directives No January 13, 2020 2:59pm Living Will No March 01, 022 9:51pm Power of Precision Farming Specialist No March 01, 2022 9:51pm Advance Directive Response Recorded Date/ Time Advance Directives No January 13, 2020 2:59pm Living Will No April 18 1:40am Power of Precision Farming Specialist No April 18, 2022 1:40am Advance Directive Response Recorded Date/ Time Advance Directives No January 13, 2020 2:59pm Living Will No May 21 023 1:36am Power of Precision Farming Specialist No May 21, 2022 1:36am Advance Directive Response Recorded Date/ Time Advance Directives No January 13, 2020 2:59pm Living Will No April 25 3:42pm Power of Precision Farming Specialist No April 25, 2023 3:42pm Advance Directive Response Recorded Date/ Time Advance Directives No January 13, 2020 2:59pm Living Will No May 24 024 12:27am Power of Precision Farming Specialist No May 24, 2023 12:27am Advance Directive Response Recorded Date/ Time Living Will No August 23, 2023 6 :30pm Do you have a Healthcare Power of Precision Farming Specialist? No August 23, 2023 6:30pm Advance Directives on File No William 2024 8:15am Living Will No April 20 8:15am Do you have a Healthcare Power of Precision Farming Specialist? No April 20, 2024 8:15am Advance Directives No April 20, 2024 8:15am Living Will No May 21 8:31pm Do you have a Healthcare Power of Precision Farming Specialist? No May 21, 2024 8:31pm Advance Directive Response Recorded Date/ Time Living Will No August 23, 2023 6 :30pm Do you have a Healthcare Power of Precision Farming Specialist? No August 23, 2023 6:30pm Living Will No May 21 025 8:31pm Do you have a Healthcare Power of Precision Farming Specialist? No May 21, 2024 8:31pm Living Will No June 18, 2024 6:24am Do you have a Healthcare Power of Precision Farming Specialist? No June 18, 2024 6:24am Do you have a Healthcare Power of Precision Farming Specialist? No July 29, 2024 8:08pm Advance Directives No April 20, 2024 8:15am Advance Directive Response Recorded Date/ Time Living Will No August 23, 2023 6 :30pm Do you have a Healthcare Power of Precision Farming Specialist? No August 23, 2023 6:30pm Do you have a Healthcare Power of Precision Farming Specialist? No September 18, 2024 10:00am Living Will No May 21 8:31pm Do you have a Healthcare Power of Precision Farming Specialist? No May 21, 2024 8:31pm Living Will No June 18, 2024 6:24am Do you have a Healthcare Power of Precision Farming Specialist? No June 18, 2024 6:24am Do you have a Healthcare Power of Precision Farming Specialist? No July 29, 2024 8:08pm Advance Directives No April 20, 2024 8:15am Advance Directive Response Recorded Date/ Time Living Will No August 23, 2023 6 :30pm Do you have a Healthcare Power of Precision Farming Specialist? No August 23, 2023 6:30pm Do you have a Healthcare Power of Precision Farming Specialist? No September 18, 2024 3:22pm Living Will No June 18, 2024 6:24am Do you have a Healthcare Power of Precision Farming Specialist? No June 18, 2024 6:24am Do you have a Healthcare Power of Precision Farming Specialist? No July 29, 2024 8:08pm Advance Directives No April 20, 2024 8:15am Advance Directive Response Recorded Date/ Time Living Will No August 23, 2023 6 :30pm Do you have a Healthcare Power of Precision Farming Specialist? No August 23, 2023 6:30pm Do you have a Healthcare Power of Precision Farming Specialist? No September 18, 2024 3:22pm Do you have a Healthcare Power of Precision Farming Specialist? No October 19, 2024 6:36pm Do you have a Healthcare Power of Precision Farming Specialist? No July 29, 2024 8:08pm Advance Directives No April 20, 2024 8:15am Advance Directive Response Recorded Date/ Time Living Will No August 23, 2023 6 :30pm Do you have a Healthcare Power of Precision Farming Specialist? No August 23, 2023 6:30pm Do you have a Healthcare Power of Precision Farming Specialist? No September 18, 2024 3:22pm Do you have a Healthcare Power of Precision Farming Specialist? No October 19, 2024 6:36pm Do you have a Healthcare Power of Precision Farming Specialist? Yes October 21, 2024 4:34pm Do you have a Healthcare Power of Precision Farming Specialist? No July 29, 2024 8:08pm Advance Directives No April 20, 2024 8:15am Advance Directive Response Recorded Date/ Time Living Will No August 23, 2023 6 :30pm Do you have a Healthcare Power of Precision Farming Specialist? No August 23, 2023 6:30pm Do you have a Healthcare Power of Precision Farming Specialist? No September 18, 2024 3:22pm Do you have a Healthcare Power of [employer]ision Farming Specialist? No October 19, 2024 6:36pm Do you have a Healthcare Power of [employer] Farming Specialist? Yes October 21, 2024 4:34pm Do you have a Healthcare Power of [employer] Farming Specialist? No July 29, 2024 8:08pm Do you have a Healthcare Power of [employer] Farming Specialist? Yes October 23, 2024 6:04pm Advance Directives No April 20, 2024 8:15am Advance Directive Response Recorded Date/ Time Living Will No August 23, 2023 6 :30pm Do you have a Healthcare Power of [employer] Farming Specialist? No August 23, 2023 6:30pm Do you have a Healthcare Power of [employer]ision Farming Specialist? No September 18, 2024 3:22pm Do you have a Healthcare Power of [employer] Farming Specialist? No October 19, 2024 6:36pm Do you have a Healthcare Power of [employer]ision Farming Specialist? Yes October 21, 2024 4:34pm Do you have a Healthcare Power of [employer] Farming Specialist? No July 29, 2024 8:08pm Do you have a Healthcare Power of [employer] Farming Specialist? Yes October 23, 2024 6:04pm Do you have a Healthcare Power of [employer] Farming Specialist? No October 26, 2024 11:37pm Advance [...] diabetes mellitus Stenosis of right carotid artery [id number] Nicotine dependence Chief Complaint 3 M FU Amb Documentation LOWER lung cancer screening SCREENING 3 M FU NSTEMI Reason for Visit Essential (primary) hypertension Insulin dependent diabetes mellitus Stenosis of right carotid artery [id number] Nicotine dependence Essential (primary) hypertension Hyperlipidemia Insulin dependent diabetes mellitus H/O coronary artery bypass surgery NSTEMI, initial episode of care Insulin dependent diabetes mellitus Nicotine dependence Chief Complaint LOWER lung cancer screening SCREENING 3 M FU NSTEMI NSTEMI NSTEMI NSTEMI [facility] FU- HEART ATTACK s/p [facility] ED NSTEMI 1-14 lower extrem Reason for Visit [id number] Nicotine dependence Essential (primary) hypertension Hyperlipidemia Insulin [...] 3 M FU NSTEMI NSTEMI NSTEMI NSTEMI [facility] FU- HEART ATTACK s/p [facility] ED NSTEMI 1-14 lower extrem EORDER Reason for Visit [id number] Nicotine dependence Essential (primary) hypertension Hyperlipidemia Insulin [...] hypertension Insulin dependent diabetes mellitus Nicotine dependence [id number] Nicotine dependence Chief Complaint Admit Date 3-4 M FU February 24, 2024 11:07am 3 M FU February 24, 2024 12:58pm PVD, OPEN WOUND March 09, 2024 9 :11am 4-5 WK FU Manuel 17th, 2024 10:47am Peripheral vascular disease, unspecified March 29, 2024 1:23pm 6 M FU April 01, 2024 9:49am Discuss CTA results April 08, 2024 12 :56pm Atherosclerosis of [place] arteries of [place] leg [place] April 20, 2024 6:47am Atherosclerosis of [place] arteries of ri [place]ht leg [place] April [...] 24, 2024 11:07am Essential (primary) hypertension [facility] r 2023 12:58pm Insulin dependent diabetes mellitus [facility] 2023 12:58pm Nicotine dependence February 24, 2024 12:58pm Fissure in skin of left foot February 232023 12:58pm Fissure in skin of right foot March 062023 10:47am PAD (peripheral artery disease) March 22, 2024 10:47am Cardiac murmur April 01, 2024 9:49am Essential (primary) hypertension [facility] r 2023 9:49am Hyperlipidemia April 01, 2024 9:49am Nicotine dependence April 01, 2024 9:49am Stenosis of right carotid artery [facility] r 2023 9:49am H/O coronary artery bypass [...] [place] PD June 20, 2024 10:58am S/P [facility] 06/21July 12, 2024 9:51 am Discuss [...] Type [facility] 11:21am Hyperlipidemia August 02, [...] 2024 9:55am Chief Complaint Admit Date S/P [facility] 06/21July 12, 2024 9:51 am Discuss [...] 2024 9:55am Chief Complaint Admit Date S/P [facility] 06/21July 12, 2024 9:51 am Discuss [...] 2024 10:15am Chief Complaint Admit Date S/P [facility] 06/21July 12, 2024 9:51 am Discuss [...] November 03, 2024 10:1 5am 3 M FU/[facility] ER FU November 04, 2024 1:3 [...] November 03, 2024 10:1 5am 3 M FU/[facility] ER FU November 04, 2024 1:3 6pm ACUTE LEG SWELLING FU November 10, 2024 1 0:05am Reason for Visit Admit Date Atherosclerosis of right lower extremity with ulceration July 14, 2024 9:54am CHF (congestive heart failure) July 11:21am Type 2 [facility], 2024 11:21am Hyperlipidemia August 02, [...] Yamilka Parekh MD [address] [place] [address] Ct Imaging Referral ID Status Reason Start Date Expiration Date Visits Requested Visits Authorized [id number] Additional Clinical Info Needed Auto-Generat ed Referral 01/06/2022 02/05/2023 1 1 Specialty Diagnoses / Procedures Referred By David rausch Referred To Contact CT IMAGING Diagnoses Left groin pain Procedures CT PELVIS WO IVCON CT PELVIS W/O CONTRAST MATERIAL Yamilka Parekh MD [address] [place] [address] Ct Imaging [id number] Referral ID Status Reason Start Date Expiration Date V isits Requested Visits Authorized [id number] Closed Auto-Generate d Referral 01/06/2022 03/16/2022 2 2 Summary Purpose Additional Source Comments Source Comments (unrecognize d section and content) In the event this informatio n is protected by the Federal Confidentiality of Alcohol and Drug Abuse Patient Records regulations: The Federal rules restrict any use of the information to criminally investigate or prosecute any alcohol or drug abuse patient.TrihealthIn the event this information is protected by the Federal Confidentiality of Alcohol and Drug Abuse Patient Records regulations: The Federal rules restrict any use of the information to criminally investigate or prosecute any alcohol or drug abuse patient.TrihealthIn the event this information is protected by the Federal Confidentiality of Alcohol and Drug Abuse Patient Records regulations: The Federal rules restrict any use of the information to criminally investigate or prosecute any alcohol or drug abuse patient.TrihealthIn the event this information is protected by the Federal Confidentiality of Alcohol and Drug Abuse Patient Records regulations: The Federal rules restrict any use of the information to criminally investigate or prosecute any alcohol or drug abuse patient.TrihealthIn the event this information is protected by the Federal Confidentiality of Alcohol and Drug Abuse Patient Records regulations: The Federal rules restrict any use of the information to criminally investigate or prosecute any alcohol or drug abuse patient.TrihealthIn the event this information is protected by the Federal Confidentiality of Alcohol and Drug Abuse Patient Records regulations: The Federal rules restrict any use of the information to criminally investigate or prosecute any alcohol or drug abuse patient.TrihealthIn the event this information is protected by the Federal Confidentiality of Alcohol and Drug Abuse Patient Records regulations: The Federal rules restrict any use of the information to criminally investigate or prosecute any alcohol or drug abuse patient.[facility] Reason for Visit (unrecogniz ed section and [...] Yamilka Parekh MD [address] [place] [address] [place] [id number] Referral ID Status Reason Start Date Expiration Date V isits Requested Visits Authorized [id number] Closed Auto-Generate d Referral 01/06/2022 03/16/2022 2 [...] Care Teams (unrecognized sec tion and content) 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 Xiang Rogers , DO Family Provider Active Dr. Xinag Rogers , DO Primary Care Provider Active Team Status: Inactive Member Role Status Dates Dr. Xiang Rogers , DO Primary Care Pr ovider, Attending Provider, Referring Provider Active Team Status: Inactive Member Role Status Dates Dr. 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 Xiang Rogers DO Primary Care Provider Active Dr. 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 Mary Kay Naegl MD Other Provider Active Start: June 20, [...] Active Start: June 20, 2024 Dean Pena CUSTOMER SOLUTIONS TEAMMATE, CUSTOMER SOLUTIONS TEAMMATE-C Other Provider Active Start : June 20, [...] Active Start: June 20, 2024 Dean Pena CUSTOMER SOLUTIONS TEAMMATE, CUSTOMER SOLUTIONS TEAMMATE-C Other Provider Active Start : June 20, [...] 2024 End: July 12, 2024 Ronit Galvez CUSTOMER SOLUTIONS TEAMMATE, CUSTOMER SOLUTIONS TEAMMATE-C Attending Provider Active Start: July 12, 2024 [...] 29, 2024 End: July 29, 2024 Dr. Lawsno Castellon DO Emergency Provider Active Start : [...] 2024 End: July 12, 2024 Ronit Galvez CUSTOMER SOLUTIONS TEAMMATE, CUSTOMER SOLUTIONS TEAMMATE-C Attending Provider Active Start: July 12, 2024 [...] 2024 End: October 19, 2024 Dr. Valentín Milelr DO Attending Provider Active Start: October 19, [...] section and content) DATE CREATED AUTHOR 02/05/2022 [facility] DATE CREATED AUTHOR 'S BARRY FAITH 11/05/[address] [facility] FOR RECORDS PERTAINING TO PATIENTS WHO [...] BE BASED ON THE PRIMARY CLINICAL RECORDS. [facility] [employer] [facility]. provides no warranty or guarantee of the accuracy or completeness of information in this document.
--- NOTE | 2024-11-10 20:25 | EKG12_ITS ---
Test Reason : SOB Blood Pressure : */* mmHG Vent. Rate : 98 BPM Atrial Rate : * BPM P-R Int : * ms QRS Dur : 78 ms QT Int : 378 ms P-R-T Axes : * 18 178 degrees QTcB Int : 482 ms Accelerated Junctional rhythm Septal infarct , age undetermined Abnormal ECG Confirmed by BRIANNA DODSON ([id number]), editorial assistant SAY DESAI ([id number]) on 11/14/2024 6:47:58 AM Referred By: JODI/GIUSEPPE Confirmed By: BRIANNA DODSON
--- NOTE | 2024-11-10 20:25 | EKG12_ITS ---
Test Reason : SOB Blood Pressure : */* mmHG Vent. Rate : 98 BPM Atrial Rate : * BPM P-R Int : * ms QRS Dur : 78 ms QT Int : 378 ms P-R-T Axes : * 18 178 degrees QTcB Int : 482 ms Accelerated Junctional rhythm Septal infarct , age undetermined Abnormal ECG Confirmed by BRIANNA DODSON ([id number]), photo editor SAY DESAI ([id number]) on 11/14/2024 6:47:58 AM Referred By: JODI/GIUSEPPE Confirmed By: BRIANNA DODSON
--- NOTE | 2024-11-10 20:33 | ED.RN ---
AKASH FRIAS CALLED FOR AN UPDATE ON THE PT. UPDATE PROVIDED PER PT. REQUEST.
--- NOTE | 2024-11-10 20:33 | ED.RN ---
AKASH FRIAS CALLED FOR AN UPDATE ON THE PT. UPDATE PROVIDED PER PT. REQUEST.
[2024-11-10 21:09] LABS: Allen Test Positive; Base Excess 0 mmol/L (-2 to +2); FI02 2.0; PO2 85 mmHG (75-100); SITE L Radial; SO2 97 % (95-99)
[2024-11-10 22:04] LABS: Troponin T High Sens 4 HR 36 ng/L (<=22)
[2024-11-10] MEDS: 0.9% Saline Lock 10 ML Syringe IV (23:02)
[2024-11-11] VITALS (9 sets, daily range): BP systolic 105–121; BP diastolic 76–81; PULSE 72–106; RESP 16–20; TEMP 36.1–36.5; O2SAT 97–100; BMI 29.2
[2024-11-11] MEDS: Budesonide Respules 0.5 MG/2 ML AMPUL.NEB. INHALATION ×3 (01:10→20:46)
[2024-11-11] MEDS: Albuterol 2.5 MG/3 ML VIAL.NEB. INHALATION ×2 (01:10→15:09)
[2024-11-11 06:12] LABS: Hematocrit 40.7 % (40-54); Hemoglobin 13.3 g/dL (13.0-16.5); Immature Granulocytes Count 0.020 X10^3/uL (0.0-0.0); Mean Corp Hgb Conc 32.7 g/dL (32-36); Mean Corpuscular Volume 92.1 fL (80-94); Mean Platelet Vol. 9.4 fl (6.2-12.0); NRBC Flagged by Analyzer 0 % (0-5); Platelet Count 332 K/mm3 (150-450); RBC Distribution Width CV 14.3 % (11.6-14.6); RBC Distribution Width SD 47.8 fl (35.1-43.9); Red Blood Count 4.42 M/mm3 (4.6-6.2); White Blood Count 8.0 K/mm3 (4.4-11.0)
[2024-11-11 06:45] LABS: AST(SGOT) 29 U/L (<=37); Alanine Aminotransfer ALT/SGPT 18 U/L (<=46); Albumin, Serum 3.6 g/dL (3.4-4.8); Alkaline Phosphatase 124 U/L (40-129); Anion Gap 14 (5-15); BUN 22 mg/dL (4-19); BUN/Creat Ratio 19.0 RATIO (10-20); Calcium,Total 9.0 mg/dL (7.6-11.0); Carbon Dioxide 20.4 mmol/L (21.0-32.0); Chloride 101 mmol/L (98-108); Cholesterol 64 mg/dL (<=200); Estimated Creatinine Clearance 75.69 ml/min (50-250); Globulin 3.1 g/dL (2.2-4.2); Glucose 159 mg/dL (70-99); Low Density Lipoprotein Calc. 3 mg/dL; Potassium 3.9 mmol/L (3.3-5.1); Triglycerides 84 mg/dL; Very Low Density Lipoprotein 17 mg/dL (5-40); cholesterol:hdl ratio screen 1.45
--- OUTSIDE RECORDS SUMMARY | 2024-11-11 07:39 | XMS RPT_ITS | CCD ---
Author Organization [facility] CliniSypr Care Team Providers Care Sociology Instructor Name Role Phone Unavailable Primary Care Provider [...] [phone] Galdino Baird Attending Provider Unavailable Abby LEAN SENSEI, LEAN SENSEI-C Kimberli Attending Provider [phone] Abby LEAN SENSEI, LEAN SENSEI-C Kimberli Referring Provider Dr. Xiang Rogers Primary Care Provider [phone] Dr. Xiang Rogers Attending Provider [phone] Dr. Xiang Rogers Referring Provider [phone] Dr. Maribell Moura Emergency Provider Elizabeth, Dr. Flori Jones Admit Provider Elizabeth, Dr. Flori Jones Other Provider Fareed, Dr. Blackwood Other Provider Dr. Steve Fields Attending Provider Unavailable Diamond, Dr. Wilson Other Provider Unavailable Dr. Calos Quinn Attending Provider Roof LEAN SENSEI, LEAN SENSEI-C Dean Carson Attending Provider Xiang Rogers DO Primary Care Provider Dr. Xiang Rogers Primary Care Provider Dr. Xiang Rogers Attending Provider Dr. Xiang Rogers Referring Provider Roof LEAN SENSEI, LEAN SENSEI-C Dean Carson Attending Provider Dr. Xiang Rogers Primary Care Provider Dr. Xiang Rogers Referring Provider Dr. Xiang Rogers Attending Provider Dr. Xiang Rogers Primary Care Provider Dr. Xiang Rogers Referring Provider [facility] LEAN SENSEI, LEAN SENSEI-C Kimberli Attending Provider Xiang Rogers DO Primary [...] SANDRA, Dr. Xiang Will Primary Care Provider [phone] Dr. Xiang Rogers DO Referring Provider Lubna [...] Laurita WESTBROOK, Dr. Lyn Other Provider Jean LEAN SENSEI-C, Dean Carson Other Provider Magaly Denise Other [...] Xiang Rogers DO Primary Care Provider [phone] Lubna Calhoun Attending Provider Uriel WESTBROOK, Dr. Jane Other Provider Dr. Xiang Rogers DO Referring Provider Dr. Clinton Soares DO Admit Provider Dr. Clinton Soares DO Attending Provider Dr. Xiang Rogers DO Primary Care Provider [phone] Dr. Saúl Aguilar DO Emergency Provider [phone] Clinton Soares DO Other Provider [phone] Dr. Xiang Rogers DO Primary Care Provider [...] Flowers Consulting Unavailable Saúl Flowers Attending Unavailable Hornbeck, Saúl Referring Unavailable Brown, Xiang R Primary [...] Attending Unavailable Brown, Xiang R Referring Unavailable HornbeckSaúl Attending Unavailable Brown, Xiang R Primary Care [...] Unavailable Brown, Xiang R Referring Unavailable Lenny LEAN SENSEI, Ronit Attending Unavailable Brown, Xiang R Primary Care Unavailable Lenny LEAN SENSEI, Ronit Attending Unavailable Lenny LEAN SENSEI, Ronit Referring Unavailable Brown, Xiang R Primary [...] Brown, Xiang R Primary Care Unavailable Abby LEAN SENSEI, Kimberli Referring Unavailable Abby LEAN SENSEI, Kimberli Attending Unavailable Brown, Xiang R Primary Care Unavailable Lenny LEAN SENSEI, Ronit Referring Unavailable Lenny LEAN SENSEI, Ronit Attending Unavailable Brown, Xiang R Primary [...] Consulting Unavailable George Ball Consulting Unavailable Kai, Talcott Consulting Unavailable Belal, Farouk Consulting Unavailable Jose [...] Consulting Unavailabl e Satti, Abisai Consulting Unavailable [place], Riki Consulting Unavailable Roof LEAN SENSEI, Dean Carson Consulting Unavailable Trinidad DEVINE, Magaly Nelson Consulting Unavail able Avery Valderrama Consulting Unavailable Donna Wolff Consulting Unavailable Donna Wolff Attending Unavailable Calos Quinn Attending Unavailable Seth Carrington Consulting Unavailable Seth Carrington Attending Unavailable Xiang Rogers Attending Unavailable Xiang Rogers Referring Unavailable Xiang Rogers Primary Care Unavailable Trinidad DEVINE, Magaly Nelson Attending Unavail able Calos Quinn Consulting Unavailable Xiang Rogers Primary Care Unavailable Joaquin SANDRA, Dr. Xiang Will Primary Care Provider [phone] Dr. Xiang Rogers DO Referring Provider Leah King Attending Provider [phone] Bishop Monique DO Emergency Provider Emily WESTBROOK, Dr. Corazon Young Admit Provider Emily WESTBROOK, Dr. Corazon Young Attending Provider Allergies Allergy Classification Reported Allergen(s) Allergy Type Date of Onset Reaction(s) Facility (8 sources) Etodolac; Translations: [ETODOLAC] Drug Allergy 03-12-2005 GI Upset [facility] (20 sources) Amoxicillin; Translations: [AMOXICILLIN] Drug Allergy 07-18-2021 Angioedema [facility] (20 sources) Lindane; Translations: [LINDANE] Drug Allergy 07-18-2021 Rash [facility] (1 source) Amoxicillin Drug Allergy 11-04-2024 [facility] [...] Discontinued 0 .ROUTE .MEDSUPPLY June 10, 2019 3:07pm September 05, 2020 [...] Dx: Type 2 DM - Uncontrolled E11.65 dapagliflozin 10 mg oral tablet (20 sources) Sodium-Glucose Cotransporter 2 Inhibitor Start: [...] of ritonavir twice daily for 5 days spironolactone 25 mg oral tablet (15 sources) Aldosterone Antagonist Start: 11-04-2024 Start: 06-20-2024 [...] January 13, 2023 January 26, 2023 2:35pm [id number] 200 actuat albuter ol 0.09 mg/actuat metered [...] 09-05-2020 clindamycin 300 mg oral caps ule (20 sources) Lincosamide Antibacterial Start: 10-23-2024 End: 11-10-2024 Start: 05-24-2023 End: 07-28-2023 clopidogrel 75 mg [...] Disc ontinued 1 NMA TOPICAL DAILY 3 July 05, 2020 12:00am July 07, [...] the tongue every 5 minutes as needed. Walls-3 Fatty Acids-Fish Oil (12 sources) Start: 07-10-2017 End: 07-28-2017 Walls-3 Fatty Acids-Fish Oil Discontinued 2 EACH PO DAILY July 10, 2017 3:35pm July 28, 2017 1:36pm Start: 07-10-2017 End: 07-28-2017 Walls-3 Fatty Acids-Fish Oil Discontinued 2 EACH PO DAILY July 09, 2017 11:00pm July 28, 2017 12:36pm Start: 07-10-2017 End: 07-28-2017 Walls-3 Fatty Acids-Fish Oil Discontinued 2 EACH PO DAILY July 10, 2017 12:00am July 28, 2017 1:36pm Walls-3 Fatty Acids-Fish Oil 1 EACH capsule (1 source) Start: 07-10-2017 End: 07-28-2017 Walls-3 Fatty Acids-Fish Oil 1 EACH capsule Discontinued 2 NMA PO DAILY July 10, 2017 12:00am July 28, 2017 1:36pm omeprazole 20 mg delayed release oral capsule (20 sources) Proton Pump Inhibitor Start: 01-01-2022 End: 09-13-2024 Start: 07-10-2017 End: 07-14-2017 ondansetron 4 mg disintegrat ing oral tablet (20 sources) Serotonin-3 Receptor Antagonist Start: 10-27-2024 End: 11-10-2024 Start: 08-23-2023 End: 09-21-2024 pantoprazole 40 mg [...] Comment on above: Take [address] [facility] once daily. simvastatin 40 mg oral table [...] Onset: 10-09-2015 10-09-2015 Chronic E Codes: Fall (16 sources) Fall; Translations: [Unspecified fall, initial encounter] [...] Onset: 10-18-2024 07-12-2024 Chronic Heart valve disorders (15 sources) Heart murmur; Translations: [Cardiac murmur, unspecified] [...] initial encounter] Onset: 09-29-2024 Episodic Other aftercare (13 sources) Surgical follow-up; Translations: [Encounter for surgical aftercare following surgery on the circulatory system] 05-17-2024 Episodic Other aftercare (2 sources) salvage determiner (current) use of insulin; Translations: [salvage determiner (current) use of insulin] Onset: 06-24-2024 Episodic Other and ill-defined heart disease (13 sources) Impaired left ventricular function; Translations: [Heart disease, unspecified] 05-10-2024 Chronic Other and ill-defined heart disease (20 sources) Left ventricular cardiac dysfunction; Translations: [Heart disease, unspecified] 06-27-2024 Chronic Other and ill-defined heart disease (2 sources) Heart disease, unspecified; Translations: [Heart disease, unspecified] Onset: 09-27-2024 Chronic Other circulatory disease (13 sources) Disorder of carotid artery; Translations: [Disorder of arteries and arterioles, unspecified] 09-09-2023 Chronic Other circulatory disease (1 source) Disorder of arteries and arterioles, unspecified; Translations: [Disorder of arteries and arterioles, unspecified] Onset: 09-12-2024 Chronic Other circulatory disease (1 source) Other specified peripheral vascular diseases; Translations: [Other specified peripheral vascular diseases] Onset: 06-03-2024 Chronic Other circulatory disease (6 sources) H/O: heart failure; Translations: [Personal history of other diseases of the circulatory system] 10-23-2024 Episodic Other connective tissue disease (13 sources) Pain in left lower limb; Translations: [Pain in left leg] 10-28-2023 Episodic Other connective tissue disease (1 source) Pain in right arm; Translations: [Pain in right arm] Onset: 10-26-2024 Episodic Other diseases of veins and lymphatics (4 sources) Non-infectious disorder of lymphatics; Translations: [Other specified noninfective disorders of lymphatic vessels and lymph nodes] 11-10-2024 Chronic Other ear and sense organ disorders (17 sources) Eczema of external auditory canal; Translations: [Acute eczematoid otitis externa, bilateral] 10-09-2022 Episodic Other hematologic conditions (20 sources) High troponin I level; Translations: [Other specified abnormalities of plasma proteins] 06-14-2018 Episodic Other injuries and conditions due to external causes (16 sources) Abrasion; Translations: [Other injury of unspecified body region, initial encounter] 04-25-2023 Episodic Other injuries and conditions due to external causes (7 sources) Hematoma; Translations: [Other injury of unspecified body region, initial encounter] 10-21-2024 Episodic Other liver diseases (20 sources) Steatosis of liver; Translations: [Fatty (change of) liver, not elsewhere classified] 06-14-2018 Chronic Other lower respiratory disease (16 sources) Pulmonary edema; Translations: [Chronic pulmonary edema] 06-27-2024 Chronic Other lower respiratory disease (13 sources) Dyspnea on exertion; Translations: [Other forms of dyspnea] 05-10-2024 Episodic Other lower respiratory disease (12 sources) Respiratory insufficiency; Translations: [Other abnormalities of breathing] 06-27-2024 Episodic Other lower respiratory disease (12 sources) Hypoxia; Translations: [Hypoxemia] 06-27-2024 Episodic Other lower respiratory disease (16 sources) Acute respiratory distress; Translations: [Acute respiratory distress] 06-27-2024 Episodic Other nutritional; endocrine; and metabolic disorders (20 sources) Hypocalcemia; Translations: [Hypocalcemia] 06-17-2021 Chronic Other nutritional; endocrine; and metabolic disorders (16 sources) Body mass index 25-29 - overweight; Translations: [Overweight] 06-27-2024 Episodic Other nutritional; endocrine; and metabolic disorders (6 sources) H/O: diabetes mellitus; Translations: [Personal history of other endocrine, nutritional and metabolic disease] 10-23-2024 Episodic Other screening for suspected conditions (not mental disorders or infectious disease) (20 sources) Patient encounter status; Translations: [Encounter for screening for malignant neoplasm of respiratory organs] Onset: 06-24-2024 Episodic Other skin disorders (17 sources) Lesion of skin of foot; Translations: [...] caused by tuberculosis or sexually transmitted disease) (12 sources) Cardiomyopathy; Translations: [Cardiomyopathy, unspecified] 08-06-2024 Chronic Peripheral and visceral atherosclerosis (20 sources) Intermittent claudication; Translations: [Peripheral vascular disease, unspecified] Onset: 05-05-2024 09-10-2023 Chronic Comment on above: LEAS Pleurisy; pneumothorax; pulmonary collapse (18 sources) Bilateral pleural effusion; Translations: [Pleural effusion, not elsewhere classified] Onset: 06-24-2024 06-27-2024 Episodic Residual codes; unclassified (20 sources) Noncompliance with medication regimen; Translations: [Patient's other noncompliance with medication regimen] 06-14-2018 Episodic Residual codes; unclassified (6 sources) Peripheral edema; Translations: [Localized edema] 10-23-2024 Episodic Respiratory failure; insufficiency; arrest (adult) (18 sources) Acute hypoxemic respiratory failure; Translations: [Acute [...] Range Facility Absolute lymphocyte countOrd ered By: ED PROVIDER on 11-10-2024 Lymphocytes Auto (Unsp spec) [#/Vol] 1.74 10*3/uL 0.83-4.51 [facility] Anion gap in Serum or Plasma Ordered By: Bishop Monique on 11-10-2024 Anion gap [Moles/Vol] 12 mmol/L 5-15 [facility] Automated lymphocyte count a s percentage of total leukocytesOrdered By: ED PROVIDER on 11-10-2024 Lymphocytes/100 WBC Auto (Unsp spec) 20.2 % 19-41 [facility] BUN/creatinine ratioOrdered By: Bishop Monique on 11-10-2024 Urea nitrogen/Creatinine [Mass ratio] 20.3 mg/mg High 10-20 [facility] Basophil percentageOrdered B y: ED PROVIDER on 11-10-2024 Basophils/100 WBC (Bld) 0.3 % 0-1 [facility] Carbon dioxide, total [Moles /volume] in Central venous bloodOrdered By: Bishop Monique on 11-10-2024 CO2 [Moles/Vol] 23.1 mmol/L 21.0-32.0 [facility] Chloride assayOrdered By: Elías Monique on 11-10-2024 Chloride [Moles/Vol] 101 mmol/L 98-108 [facility] Eosinophil percentageOrdered By: ED PROVIDER on 11-10-2024 Eosinophils/100 WBC (Bld) 1.5 % 0-5 [facility] Erythrocyte distribution wid th ratioOrdered By: ED PROVIDER on 11-10-2024 Erythrocyte distribution width (RBC) [Ratio] 14.2 % 11.6-14.6 [facility] Erythrocyte distribution wid th standard deviationOrdered By: ED PROVIDER on 11-10-2024 Erythrocyte distribution width (RBC) [Ratio] 48.4 fl High 35.1-43.9 [facility] Glomerular filtration rate ( GFR) estimation/1.73 sq m using serum, plasma, or whole bOrdered By: Bishop Monique on 11-10-2024 GFR/1.73 sq M.predicted among non-blacks MDRD (S/P/Bld) [Vol rate/Area] 68 mL/min/{1.73_m2} >60 [facility] Hematocrit Auto (Bld) [Volum e fraction]Ordered By: ED PROVIDER on 11-10-2024 Hematocrit (Bld) [Volume fraction] 41.6 % 40-54 [facility] Hemoglobin measurementOrdere d By: ED PROVIDER on 11-10-2024 Hemoglobin (Bld) [Mass/Vol] 13.3 g/dL 13.0-16.5 [facility] Immature granulocytes/100 WB C Auto (Bld)Ordered By: ED PROVIDER on 11-10-2024 Immature granulocytes/100 WBC (Bld) 0.300 % 0.0-0.9 [facility] Influenza virus A and B and SARS-CoV-2 (COVID-19) and Respiratory syncytial virus RNAOrdered By: Bishop Monique on 11-10-2024 SARS-CoV-2 (COVID-19) RNA HAYDER+probe Ql (Unsp spec) [facility] MCV (mean corpuscular volume ) determinationOrdered By: ED PROVIDER on 11-10-2024 MCV (RBC) [Entitic vol] 93.9 fL 80-94 [facility] Magnesium measurement (mass/ volume)Ordered By: Corazon Diaz on 11-10-2024 Magnesium (Unsp spec) [Mass/Vol] 2.0 mg/dL 1.5-2.2 [facility] Mean corpuscular hemoglobin (MCH) determinationOrdered By: ED PROVIDER on 11-10-2024 MCH (RBC) [Entitic mass] 30.0 pg 27.0-32.0 [facility] Monocyte percentageOrdered B y: ED PROVIDER on 11-10-2024 Monocytes/100 WBC (Bld) 8.0 % 0-10 [facility] Natriuretic peptide.B prohor parris N-Terminal [Mass/volume] in Serum or PlasmaOrdered By: Bishop Monique on 11-10-2024 Natriuretic peptide.B prohormone N-Terminal [Mass/Vol] 9141 pg/mL High <900 [facility] Neutrophil percentageOrdered By: ED PROVIDER on 11-10-2024 Neutrophils/100 WBC (Bld) 69.7 % 47-70 [facility] Platelet countOrdered By: ED PROVIDER on 11-10-2024 Platelets (Bld) [#/Vol] 336 10*3/uL 150-450 [facility] Potassium measurement (mass/ volume)Ordered By: Bishop Monique on 11-10-2024 Potassium (Unsp spec) [Mass/Vol] 3.7 mmol/L 3.3-5.1 [facility] RBC Auto (Bld) [#/Vol]Ordere d By: ED PROVIDER on 11-10-2024 RBC (Bld) [#/Vol] 4.43 10*6/uL Low 4.6-6.2 [facility] Serum creatinine measurement (mass/volume)Ordered By: Bishop Monique on 11-10-2024 Creatinine [Mass/Vol] 1.19 mg/dL 0.70-1.20 [facility] Serum glucose measurement (m ass/volume)Ordered By: Bishop Monique on 11-10-2024 Glucose [Mass/Vol] 174 mg/dL High 70-99 [facility] Serum or plasma calcium brenda urement (mass/volume)Ordered By: Bishop Oviedo on 11-10-2024 Calcium [Mass/Vol] 8.8 mg/dL 7.6-11.0 [facility] Serum or plasma urea nitroge n measurement (mass/volume)Ordered By: Bishop Monique on 11-10-2024 Urea nitrogen [Mass/Vol] 24 mg/dL High 4-19 [facility] Sodium levelOrdered By: Maurisio Monique on 11-10-2024 Sodium [Moles/Vol] 136 mmol/L 133-145 [facility] Troponin T.cardiac [Mass/vol ume] in Serum or Plasma by High sensitivity methodOrdered By: Bishop Monique on 11-10-2024 Troponin T.cardiac High sensitivity method [Mass/Vol] 37 ng/L High <22 [facility] Troponin T.cardiac High sensitivity method [Mass/Vol] 42 ng/L High <22 [facility] White blood cell (WBC) count Ordered By: ED PROVIDER on 11-10-2024 WBC (Bld) [#/Vol] 8.6 10*3/uL 4.4-11.0 [facility] Internal Medicine Office Vis iton 11-04-2024 Internal Medicine Office Visit Normal [facility] Absolute lymphocyte countOrd ered By: Magaly Abdi on 10-27-2024 Lymphocytes Auto (Unsp spec) [#/Vol] 0.95 10*3/uL 0.83-4.51 [facility] Anion gap in Serum or Plasma Ordered By: Bronson Tolentino on 10-27-2024 Anion gap [Moles/Vol] 13 mmol/L 5-15 [facility] Automated lymphocyte count a s percentage of total leukocytesOrdered By: Magaly Abdi on 10-27-2024 Lymphocytes/100 WBC Auto (Unsp spec) 14.2 % Low 19-41 [facility] BUN/creatinine ratioOrdered By: Bronson Tolentino on 10-27-2024 Urea nitrogen/Creatinine [Mass ratio] 18.1 mg/mg 10-20 [facility] Basic Metabolic Profile (BMP )on 10-27-2024 BUN/CRE 18.1 RATIO Normal - [facility] Comment on above: Performed By: #### L 500.3400, L501.2450, L100.0100, L500.2500, L503.6005, L501.5200 ####[facility] [address] [place], [address] Calcium [Mass/Vol] 8.8 mg/dL Normal 7.6-11.0 [facility] Comment on above: Performed By: #### L 500.3400, L501.2450, L100.0100, L500.2500, L503.6005, L501.5200 ####[facility] [address] [place], [address] Chloride [Moles/Vol] 98 mmol/L Normal 98-108 [facility] Comment on above: Performed By: #### L 500.3400, L501.2450, L100.0100, L500.2500, L503.6005, L501.5200 ####[facility] [address] [place], [address] CO2 [Moles/Vol] 20.9 mmol/L Low 21.0-32.0 [facility] Comment on above: Performed By: #### L 500.3400, L501.2450, L100.0100, L500.2500, L503.6005, L501.5200 ####[facility] [address] [place], [address] Creatinine [Mass/Vol] 0.99 mg/dL Normal 0.70-1.20 [facility] Comment on above: Performed By: #### L 500.3400, L501.2450, L100.0100, L500.2500, L503.6005, L501.5200 ####[facility] [address] [place], [address] ECRCL 87.66 ml/min Normal 50-250 [facility] Comment on above: Performed By: #### L 500.3400, L501.2450, L100.0100, L500.2500, L503.6005, L501.5200 ####[facility] [address] [place], [address] GAP 13 Normal 5-15 [facility] Comment on above: Performed By: #### L 500.3400, L501.2450, L100.0100, L500.2500, L503.6005, L501.5200 ####[facility] [address] [place], [address] GFR/1.73 sq M.predicted among non-blacks MDRD (S/P/Bld) [Vol rate/Area] 85 mL/min/{1.73_m2} Normal >60 [facility] Comment on above: Result Comment: mL/m in/1.73m2 CKD-EPI Creatinine Equation (2020) Performed By: #### L 500.3400, L501.2450, L100.0100, L500.2500, L503.6005, L501.5200 ####[facility] [address] [place], [address] Glucose [Mass/Vol] 203 mg/dL High 70-99 [facility] Comment on above: Performed By: #### L 500.3400, L501.2450, L100.0100, L500.2500, L503.6005, L501.5200 ####[facility] [address] [place], [address] Potassium [Moles/Vol] 4.2 mmol/L Normal 3.3-5.1 [facility] Comment on above: Result Comment: Hemo lysis present, Results??could be affected.?? Performed By: #### L 500.3400, L501.2450, L100.0100, L500.2500, L503.6005, L501.5200 ####[facility] [address] [place], [address] Sodium [Moles/Vol] 132 mmol/L Low 133-145 [facility] Comment on above: Performed By: #### L 500.3400, L501.2450, L100.0100, L500.2500, L503.6005, L501.5200 ####[facility] [address] [place], [address] Urea nitrogen [Mass/Vol] 18 mg/dL Normal 4-19 [facility] Comment on above: Performed By: #### L 500.3400, L501.2450, L100.0100, L500.2500, L503.6005, L501.5200 ####[facility] [address] [place], [address] Basophil percentageOrdered B y: Magaly Abdi on 10-27-2024 Basophils/100 WBC (Bld) 0.3 % 0-1 [facility] Bilirubin Test strip Ql (U)O rdered By: Bronson Tolentino on 10-27-2024 Bilirubin Ql (U) Negative Negative [facility] Bilirubin directOrdered By: Bronson Tolentino on 10-27-2024 Bilirubin.direct [Mass/Vol] 0.17 mg/dL 0.00-0.30 [facility] Bilirubin, totalOrdered By: Bronson Tolentino on 10-27-2024 Bilirubin [Mass/Vol] 0.99 mg/dL 0.00-1.30 [facility] CBC W/Diff, Automatedon 10-05 Absolute Lymph 0.95 X10 3/uL Normal 0.83-4.51 [facility] Comment on above: Order Comment: REDRA W. PREVIOUS SPECIMEN REJECTED DUE TOCLOTTED. 10/27/2427 Hermilo R Law. Performed By: #### L 100.0100 ####[facility] [address] [place], [address] Absolute Neut 5.3 X10 3/uL Normal 2.0-7.7 [facility] Comment on above: Order Comment: REDRA W. PREVIOUS SPECIMEN REJECTED DUE TOCLOTTED. 10/27/2427 Hermilo R Law. Performed By: #### L 100.0100 ####[facility] [address] [place], [address] Basophils/100 WBC (Bld) 0.3 % Normal 0-1 [facility] Comment on above: Order Comment: REDRA W. PREVIOUS SPECIMEN REJECTED DUE TOCLOTTED. 10/27/2427 Hermilo R Law. Performed By: #### L 100.0100 ####[facility] [address] [place], [address] Eosinophils/100 WBC (Bld) 2.2 % Normal 0-5 [facility] Comment on above: Order Comment: REDRA W. PREVIOUS SPECIMEN REJECTED DUE TOCLOTTED. 10/27/2427 Hermilo R Law. Performed By: #### L 100.0100 ####[facility] [address] [place], [address] Erythrocyte distribution width (RBC) [Ratio] 13.2 % Normal 11.6-14.6 [facility] Comment on above: Order Comment: REDRA W. PREVIOUS SPECIMEN REJECTED DUE TOCLOTTED. 10/27/2427 Hermilo R Law. Performed By: #### L 100.0100 ####[facility] [address] [place], [address] Hematocrit (Bld) [Volume fraction] 41.6 % Normal 40-54 [facility] Comment on above: Order Comment: REDRA W. PREVIOUS SPECIMEN REJECTED DUE TOCLOTTED. 10/27/2427 Hermilo R Law. Performed By: #### L 100.0100 ####[facility] [address] [place], [address] Hemoglobin (Bld) [Mass/Vol] 13.3 g/dL Normal 13.0-16.5 [facility] Comment on above: Order Comment: REDRA W. PREVIOUS SPECIMEN REJECTED DUE TOCLOTTED. 10/27/2427 Hermilo R Law. Performed By: #### L 100.0100 ####[facility] [address] [place], [address] IG% 0.400 Normal 0.0-0.9 [facility] Comment on above: Order Comment: REDRA W. PREVIOUS SPECIMEN REJECTED DUE TOCLOTTED. 10/27/2427 Hermilo R Law. Result Comment: IG% - Immature Granulocytes (promyelocytes, myelocytes andmetamyelocytes) > 1% indicates that a LEFT SHIFT is Present. Performed By: #### L 100.0100 ####[facility] [address] [place], [address] Lymphocytes/100 WBC (Bld) 14.2 % Low 19-41 [facility] Comment on above: Order Comment: REDRA W. PREVIOUS SPECIMEN REJECTED DUE TOCLOTTED. 10/27/2427 Hermilo R Law. Performed By: #### L 100.0100 ####[facility] [address] [place], [address] MCH (RBC) [Entitic mass] 30.2 pg Normal 27.0-32.0 [facility] Comment on above: Order Comment: REDRA W. PREVIOUS SPECIMEN REJECTED DUE TOCLOTTED. 10/27/2427 Hermilo R Law. Performed By: #### L 100.0100 ####[facility] [address] [place], [address] MCHC (RBC) [Mass/Vol] 32.0 g/dL Normal 32-36 [facility] Comment on above: Order Comment: REDRA W. PREVIOUS SPECIMEN REJECTED DUE TOCLOTTED. 10/27/2427 Hermilo R Law. Performed By: #### L 100.0100 ####[facility] [address] [place], [address] MCV (RBC) [Entitic vol] 94.5 fL High 80-94 [facility] Comment on above: Order Comment: REDRA W. PREVIOUS SPECIMEN REJECTED DUE TOCLOTTED. 10/27/2427 Hermilo R Law. Performed By: #### L 100.0100 ####[facility] [address] [place], [address] Monocytes/100 WBC (Bld) 4.0 % Normal 0-10 [facility] Comment on above: Order Comment: REDRA W. PREVIOUS SPECIMEN REJECTED DUE TOCLOTTED. 10/27/2427 Hermilo R Law. Performed By: #### L 100.0100 ####[facility] [address] [place], [address] Neutrophils/100 WBC (Bld) 78.9 % High 47-70 [facility] Comment on above: Order Comment: REDRA W. PREVIOUS SPECIMEN REJECTED DUE TOCLOTTED. 10/27/2427 Hermilo R Law. Performed By: #### L 100.0100 ####[facility] [address] [place], [address] Nucleated RBC (Bld) [#/Vol] 0 10*3/uL Normal 0-5 [facility] Comment on above: Order Comment: REDRA W. PREVIOUS SPECIMEN REJECTED DUE TOCLOTTED. 10/27/2427 Hermilo R Law. Performed By: #### L 100.0100 ####[facility] [address] [place], [address] Platelet mean volume (Bld) [Entitic vol] 9.6 fL Normal 6.2-12.0 [facility] Comment on above: Order Comment: REDRA W. PREVIOUS SPECIMEN REJECTED DUE TOCLOTTED. 10/27/2427 Hermilo R Law. Performed By: #### L 100.0100 ####[facility] [address] [place], [address] Platelets (Bld) [#/Vol] 245 10*3/uL Normal 150-450 [facility] Comment on above: Order Comment: REDRA W. PREVIOUS SPECIMEN REJECTED DUE TOCLOTTED. 10/27/2427 Hermilo R Law. Performed By: #### L 100.0100 ####[facility] [address] [place], [address] RBC (Bld) [#/Vol] 4.40 10*6/uL Low 4.6-6.2 [facility] Comment on above: Order Comment: REDRA W. PREVIOUS SPECIMEN REJECTED DUE TOCLOTTED. 10/27/2427 Hermilo R Law. Performed By: #### L 100.0100 ####[facility] [address] [place], [address] RDW SD 46.2 fl High 35.1-43.9 [facility] Comment on above: Order Comment: REDRA W. PREVIOUS SPECIMEN REJECTED DUE TOCLOTTED. 10/27/2427 Hermilo R Law. Performed By: #### L 100.0100 ####[facility] [address] [place], [address] WBC (Bld) [#/Vol] 6.7 10*3/uL Normal 4.4-11.0 [facility] Comment on above: Order Comment: NATALIE Banks. PREVIOUS SPECIMEN REJECTED DUE TOCLOTTED. 10/27/2427 Hermilo R Law. Performed By: #### L 100.0100 ####[facility] [address] [place], [address] Absolute Neut Normal 2.0-7.7 [facility] Comment on above: Result Comment: This specimen has been REJECTED due to Laboratory criteria:Clotted.CHANDAN2 has been notified of need of recollection.10/27/2426 Hermilo R Law Performed By: #### L 500.3400, L501.2450, L100.0100, L500.2500, L503.6005, L501.5200 ####[facility] [address] [facility] [address] HCT Normal 40-54 [facility] Comment on above: Result Comment: This specimen has been REJECTED due to Laboratory criteria:Clotted.CHANDAN2 has been notified of need of recollection.10/27/2426 Hermilo R Law Performed By: #### L 500.3400, L501.2450, L100.0100, L500.2500, L503.6005, L501.5200 ####[facility] [address] [place], [address] HGB Normal 13.0-16.5 [facility] Comment on above: Result Comment: This specimen has been REJECTED due to Laboratory criteria:Clotted.CHANDAN2 has been notified of need of recollection.10/27/2426 Hermilo R Law Performed By: #### L 500.3400, L501.2450, L100.0100, L500.2500, L503.6005, L501.5200 ####[facility] [address] [facility] [address] MCH Normal 27.0-32.0 [facility] Comment on above: Result Comment: This specimen has been REJECTED due to Laboratory criteria:Clotted.FRANKY has been notified of need of recollection.10/27/2426 Hermilo R Law Performed By: #### L 500.3400, L501.2450, L100.0100, L500.2500, L503.6005, L501.5200 ####[facility] [address] [place], [address] MCHC Normal 32-36 [facility] Comment on above: Result Comment: This specimen has been REJECTED due to Laboratory criteria:Clotted.FRANKY has been notified of need of recollection.10/27/2426 Hermilo R Law Performed By: #### L 500.3400, L501.2450, L100.0100, L500.2500, L503.6005, L501.5200 ####[facility] [address] [place], [address] MCV Normal 80-94 [facility] Comment on above: Result Comment: This specimen has been REJECTED due to Laboratory criteria:Clotted.FRANKY has been notified of need of recollection.10/27/2426 Hermilo R Law Performed By: #### L 500.3400, L501.2450, L100.0100, L500.2500, L503.6005, L501.5200 ####[facility] [address] [place], [address] NEUT% Normal 47-70 [facility] Comment on above: Result Comment: This specimen has been REJECTED due to Laboratory criteria:Clotted.FRANKY has been notified of need of recollection.10/27/2426 Hermilo R Law Performed By: #### L 500.3400, L501.2450, L100.0100, L500.2500, L503.6005, L501.5200 ####[facility] [address] [place], [address] PLT Normal 150-450 [facility] Comment on above: Result Comment: This specimen has been REJECTED due to Laboratory criteria:Clotted.CHANDAN2 has been notified of need of recollection.10/27/2426 Hermilo R Law Performed By: #### L 500.3400, L501.2450, L100.0100, L500.2500, L503.6005, L501.5200 ####[facility] [address] [place], [address] RBC Normal 4.6-6.2 [facility] Comment on above: Result Comment: This specimen has been REJECTED due to Laboratory criteria:Clotted.CHANDAN2 has been notified of need of recollection.10/27/2426 Hermilo R Law Performed By: #### L 500.3400, L501.2450, L100.0100, L500.2500, L503.6005, L501.5200 ####[facility] [address] [place], [address] RDW CV Normal 11.6-14.6 [facility] Comment on above: Result Comment: This specimen has been REJECTED due to Laboratory criteria:Clotted.CHANDAN2 has been notified of need of recollection.10/27/2426 Hermilo R Law Performed By: #### L 500.3400, L501.2450, L100.0100, L500.2500, L503.6005, L501.5200 ####[facility] [address] [place], [address] RDW SD Normal 35.1-43.9 [facility] Comment on above: Result Comment: This specimen has been REJECTED due to Laboratory criteria:Clotted.CHANDAN2 has been notified of need of recollection.10/27/2426 Hermilo R Law Performed By: #### L 500.3400, L501.2450, L100.0100, L500.2500, L503.6005, L501.5200 ####[facility] [address] [place], [address] WBC Normal 4.4-11.0 [facility] Comment on above: Result Comment: This specimen has been REJECTED due to Laboratory criteria:Clotted.SHUFF2 has been notified of need of recollection.10/27/24 0027 Hermilo Will Law Performed By: #### L 500.3400, L501.2450, L100.0100, L500.2500, L503.6005, L501.5200 ####[facility] [address] [place], [address] CO2 (BldV) [Moles/Vol]Ordere d By: Bronson Tolentino on 10-27-2024 CO2 [Moles/Vol] 29 mmol/L 23-33 [facility] Carbon dioxide, total [Moles /volume] in Central venous bloodOrdered By: Bronson Tolentino on 10-27-2024 CO2 [Moles/Vol] 20.9 mmol/L Low 21.0-32.0 [facility] Chloride assayOrdered By: Aaliyah Tolentino on 10-27-2024 Chloride [Moles/Vol] 98 mmol/L 98-108 [facility] Emergency Department Summary on 10-27-2024 Emergency Department [...] 10-27-2024 Lactate [Moles/Vol] 1.4 mmol/L Normal 0.0-2.0 [facility] Comment on above: Order Comment: Y Performed By: #### L 500.3400, L501.2450, L100.0100, L500.2500, L503.6005, L501.5200 ####[facility] [address] [place], [place], [address] Lipaseon 10-27-2024 Lipase [Catalytic activity/Vol] 37 U/L Normal 13-75 [facility] Comment on above: Result Comment: Gissell graf note:LIPASE revised reference range effective 22.New Lipase methodology. Expected to produce lower valuesthan the previous assay method.NEW Reference Range: 13 - 75 U/L Performed By: #### L 500.3400, L501.2450, L100.0100, L500.2500, L503.6005, L501.5200 ####[facility] [address] [place], [address] Liver Profileon 10-27-2024 Albumin [Mass/Vol] 3.5 g/dL Normal 3.4-4.8 [facility] Comment on above: Performed By: #### L 500.3400, L501.2450, L100.0100, L500.2500, L503.6005, L501.5200 ####[facility] [address] [place], [address] ALK PHOS 97 U/L Normal 40-129 [facility] Comment on above: Performed By: #### L 500.3400, L501.2450, L100.0100, L500.2500, L503.6005, L501.5200 ####[facility] [address] [place], [address] ALT [Catalytic activity/Vol] 23 U/L Normal <=46 [facility] Comment on above: Result Comment: Hemo lysis present, Results??could be affected.?? Performed By: #### L 500.3400, L501.2450, L100.0100, L500.2500, L503.6005, L501.5200 ####[facility] [address] [place], [address] AST [Catalytic activity/Vol] 44 U/L High <=37 [facility] Comment on above: Result Comment: Hemo lysis present, Results??could be affected.?? Performed By: #### L 500.3400, L501.2450, L100.0100, L500.2500, L503.6005, L501.5200 ####[facility] [address] [place], [address] Bilirubin [Mass/Vol] 0.99 mg/dL Normal 0.00-1.30 [facility] Comment on above: Performed By: #### L 500.3400, L501.2450, L100.0100, L500.2500, L503.6005, L501.5200 ####[facility] [address] [place], [address] Bilirubin.direct [Mass/Vol] 0.17 mg/dL Normal 0.00-0.30 [facility] Comment on above: Result Comment: Hemo lysis present, Results??could be affected.?? Performed By: #### L 500.3400, L501.2450, L100.0100, L500.2500, L503.6005, L501.5200 ####[facility] [address] [place], [address] Globulin (S) [Mass/Vol] 3.1 g/dL Normal 2.2-4.2 [facility] Comment on above: Performed By: #### L 500.3400, L501.2450, L100.0100, L500.2500, L503.6005, L501.5200 ####[facility] [address] [place], [address] T PROT 6.6 g/dL Normal 5.9-8.4 [facility] Comment on above: Performed By: #### L 500.3400, L501.2450, L100.0100, L500.2500, L503.6005, L501.5200 ####[facility] [address] [place], [address] MCV (mean corpuscular volume ) determinationOrdered By: Magaly Abdi on 10-27-2024 MCV (RBC) [Entitic vol] 94.5 fL High 80-94 [facility] Magnesiumon 10-27-2024 Magnesium [Mass/Vol] 1.7 mg/dL Normal 1.5-2.2 [facility] Comment on above: Performed By: #### L 500.3400, L501.2450, L100.0100, L500.2500, L503.6005, L501.5200 ####[facility] [address] [place], [address] Magnesium measurement (mass/ volume)Ordered By: Bronson Tolentino on 10-27-2024 Magnesium (Unsp spec) [Mass/Vol] 1.7 mg/dL 1.5-2.2 [facility] Mean corpuscular hemoglobin (MCH) determinationOrdered By: Magaly Abdi on 10-27-2024 MCH (RBC) [Entitic mass] 30.2 pg 27.0-32.0 [facility] Monocyte percentageOrdered B y: Magaly Abdi on 10-27-2024 Monocytes/100 WBC (Bld) 4.0 % 0-10 [facility] Mucus LM Ql (Urine sed)Order ed By: Bronson Tolentino on 10-27-2024 Mucus Ql (Urine sed) 0 SEEN /hpf [facility] Neutrophil percentageOrdered By: Magaly Abdi on 10-27-2024 [...] RBC (Bld) [#/Vol] 4.40 10*6/uL Low 4.6-6.2 [facility] Serum creatinine measurement (mass/volume)Ordered By: Bronson Tolentino on 10-27-2024 Creatinine [Mass/Vol] 0.99 mg/dL 0.70-1.20 [facility] Serum globulin measurementOr dered By: Bronson Tolentino on 10-27-2024 Globulin (S) [Mass/Vol] 3.1 g/dL 2.2-4.2 [facility] Serum glucose measurement (m ass/volume)Ordered By: Bronson Tolentino on 10-27-2024 Glucose [Mass/Vol] 203 mg/dL High 70-99 [facility] Serum or plasma alanine martino otransferase (ALT) measurementOrdered By: Bronson Tolentino on 10-27-2024 ALT [Catalytic activity/Vol] 23 U/L <47 [facility] Serum or plasma albumin brenda urement (mass/volume)Ordered By: Bronson Tolentino on 10-27-2024 Albumin [Mass/Vol] 3.5 g/dL 3.4-4.8 [facility] Serum or plasma alkaline yulia sphatase measurementOrdered By: Bronson Tolentino on 10-27-2024 ALP [Catalytic activity/Vol] 97 U/L 40-129 [facility] Serum or plasma calcium brenda urement (mass/volume)Ordered By: Bronson Tolentino on 10-27-2024 Calcium [Mass/Vol] 8.8 mg/dL 7.6-11.0 [facility] Serum or plasma urea nitroge n measurement (mass/volume)Ordered By: Bronson Tolentino on 10-27-2024 Urea nitrogen [Mass/Vol] 18 mg/dL 4-19 [facility] Sodium levelOrdered By: Roberto Tolentino on 10-27-2024 Sodium [Moles/Vol] 132 mmol/L Low 133-145 [facility] Squamous epithelial cells de tection in urine sediment by light microscopyOrdered By: Bronson Tolentino on 10-27-2024 Epithelial cells.squamous LM Ql (Urine sed) 0 SEEN /hpf 0-5 [facility] Total proteinOrdered By: Renato Tolentino on 10-27-2024 Protein [Mass/Vol] 6.6 g/dL 5.9-8.4 [facility] Urinalysis, Completeon 10-27 WBC 0-5 SEEN Normal 0-5 [facility] Comment on above: Order Comment: COLLE CTOR TO SPECIFY Performed By: #### L 400.0001 ####[facility] [address] [place], [address] BACTERIA 0 SEEN Normal None Seen [facility] Comment on above: Order Comment: ARINA CTOR TO SPECIFY Performed By: #### L 400.0001 ####[facility] [address] [place], [address] EPI,SQUAMOUS 0 SEEN Normal 0-5 [facility] Comment on above: Order Comment: ARINA CTOR TO SPECIFY Performed By: #### L 400.0001 ####[facility] [address] [place], [address] Mucus Ql (Urine sed) 0 SEEN Normal [facility] Comment on above: Order Comment: ARINA CTOR TO SPECIFY Performed By: #### L 400.0001 ####[facility] [address] [place], [address] RBC 0 SEEN Normal 0-5 [facility] Comment on above: Order Comment: ARINA CTOR TO SPECIFY Performed By: #### L 400.0001 ####[facility] [address] [place], [address] Urine clarityOrdered By: Renato Tolentino on 10-27-2024 [...] Urobilinogen Ql (U) 1 mg/dl High Normal [facility] Venous Blood Gason Blood Gas Type NADINE Normal [facility] Comment on above: Performed By: #### L 9000.0810 ####[facility] [address] [place], [address] CO2 [Moles/Vol] 29 mmol/L Normal 23-33 [facility] Comment on above: Performed By: #### L 9000.0810 ####[facility] [address] [place], [address] HCO3 (Bld) [Moles/Vol] 28 mmol/L High 22-26 [place] Comment on above: Performed By: #### L 9000.0810 ####[facility] [address] [place], [address] O2 Delivery Dev Not entered [facility] Comment on above: Performed By: #### L 9000.0810 ####[facility] [address] [place], [address] SITE Not entered [facility] Comment on above: Performed By: #### L 9000.0810 ####[facility] [address] [place], [address] VBG BE 3 mmol/L Normal -1.0-3.5 [facility] Comment on above: Performed By: #### L 9000.0810 ####[facility] [address] [place], [address] VBG pCO2 41.9 mmHg Normal 41-51 [facility] Comment on above: Performed By: #### L 9000.0810 ####[facility] [address] [place], [address] VBG pH 7.43 High 7.32-7.42 [facility] Comment on above: Performed By: #### L 9000.0810 ####[facility] [address] [place], [address] VBG PO2 30 mmHg Normal 25-40 [facility] Comment on above: Performed By: #### L 9000.0810 ####[facility] [address] [place], [address] VBG SO2 59 Normal 50-70 [facility] Comment on above: Performed By: #### L 9000.0810 ####[facility] [address] [place], [address] Blood Gas Type NADINE [facility] Comment on above: Performed By: #### L 9000.0810 ####[facility] [address] [place], [address] CO2 [Moles/Vol] 22 mmol/L Low 23-33 [facility] Comment on above: Performed By: #### L 9000.0810 ####[facility] [address] [place], [address] HCO3 (Bld) [Moles/Vol] 21 mmol/L Low 22-26 [place] Comment on above: Performed By: #### L 9000.0810 ####[facility] [address] [place], [address] O2 Delivery Dev Not entered [facility] Comment on above: Performed By: #### L 9000.0810 ####[facility] [address] [place], [address] SITE Not entered [facility] Comment on above: Performed By: #### L 9000.0810 ####[facility] [address] [place], [address] VBG BE -1 mmol/L Normal -1.0-3.5 [facility] Comment on above: Performed By: #### L 9000.0810 ####[facility] [address] [place], [address] VBG pCO2 23.3 mmHg Low 41-51 [facility] Comment on above: Performed By: #### L 9000.0810 ####[facility] [address] [place], [address] VBG pH 7.57 High 7.32-7.42 [facility] Comment on above: Performed By: #### L 9000.0810 ####[facility] [address] [place], [address] VBG PO2 224 mmHg High 25-40 [facility] Comment on above: Performed By: #### L 9000.0810 ####[facility] [address] [place], [address] VBG SO2 100 High 50-70 [facility] Comment on above: Performed By: #### L 9000.0810 ####[facility] [address] [place], [address] Venous blood base excess asia surementOrdered By: Bronson Tolentino on 10-27-2024 Base excess Calc (BldV) [Moles/Vol] 3 mmol/L -1.0-3.5 [facility] Venous blood bicarbonate asia surementOrdered By: Bronson Tolentino on 10-27-2024 HCO3 (Bld) [Moles/Vol] 28 mmol/L High 22-26 [place] Venous blood pH measurementO rdered By: Bronson [...] WBC (Bld) [#/Vol] 6.7 10*3/uL 4.4-11.0 [facility] White blood cell countOrdere d By: Bronson Tolentino on 10-27-2024 White blood cell count 0-5 SEEN /hpf 0-5 [facility] Bedside Glucoseon 10-26-2024 FINGERSTICK GLU 194 mg/dL High 74-106 [facility] Comment on above: Result Comment: SNEHA DUNCAN OF PATIENT CARE PER NURSING PROTOCOL Performed By: #### L 501.080 ####[facility] [address] [place], [address] Chest PA and Lateralon 10-26 Chest PA and Lateral Normal [facility] Glucose measurement at bedsi deOrdered By: Bronson Tolentino on 10-26-2024 Glucose [Mass/Vol] 194 mg/dL High 74-106 [facility] Absolute lymphocyte countOrd ered By: Devin Curry on 10-23-2024 Lymphocytes Auto (Unsp spec) [#/Vol] 1.48 10*3/uL 0.83-4.51 [facility] Anion gap in Serum or Plasma Ordered By: Devin Curry on 10-23-2024 Anion gap [Moles/Vol] 12 mmol/L 5-15 [facility] Automated lymphocyte count a s percentage of total leukocytesOrdered By: Devin Curry on 10-23-2024 Lymphocytes/100 WBC Auto (Unsp spec) 21.6 % 19- [facility] BUN/creatinine ratioOrdered By: Devin Curry on 10-23-2024 Urea nitrogen/Creatinine [Mass ratio] 18.2 mg/mg - [facility] Basic Metabolic Profile (BMP )on 07-20-2025 BUN/CRE 18.2 RATIO Normal 10-20 [facility] Comment on above: Performed By: #### L 100.0100, L500.2500 ####[facility] [address] [place], [address] Calcium [Mass/Vol] 9.3 mg/dL Normal 7.6-11.0 [facility] Comment on above: Performed By: #### L 100.0100, L500.2500 ####[facility] [address] [place], [address] Chloride [Moles/Vol] 100 mmol/L Normal 98-108 [facility] Comment on above: Performed By: #### L 100.0100, L500.2500 ####[facility] [address] [place], [address] CO2 [Moles/Vol] 26.0 mmol/L Normal 21.0-32.0 [facility] Comment on above: Performed By: #### L 100.0100, L500.2500 ####[facility] [address] [place], [address] Creatinine [Mass/Vol] 1.00 mg/dL Normal 0.70-1.20 [facility] Comment on above: Performed By: #### L 100.0100, L500.2500 ####[facility] [address] [place], [address] ECRCL 89.11 ml/min Normal 50-250 [facility] Comment on above: Performed By: #### L 100.0100, L500.2500 ####[facility] [address] [place], [address] GAP 12 Normal 5-15 [facility] Comment on above: Performed By: #### L 100.0100, L500.2500 ####[facility] [address] [place], [address] GFR/1.73 sq M.predicted among non-blacks MDRD (S/P/Bld) [Vol rate/Area] 84 mL/min/{1.73_m2} Normal >60 [facility] Comment on above: Result Comment: mL/m in/1.73m2 CKD-EPI Creatinine Equation (2020) Performed By: #### L 100.0100, L500.2500 ####[facility] [address] [place], [address] Glucose [Mass/Vol] 256 mg/dL High 70-99 [facility] Comment on above: Performed By: #### L 100.0100, L500.2500 ####[facility] [address] [place], [address] Potassium [Moles/Vol] 3.9 mmol/L Normal 3.3-5.1 [facility] Comment on above: Performed By: #### L 100.0100, L500.2500 ####[facility] [address] [place], [address] Sodium [Moles/Vol] 138 mmol/L Normal 133-145 [facility] Comment on above: Performed By: #### L 100.0100, L500.2500 ####[facility] [address] [place], [address] Urea nitrogen [Mass/Vol] 18 mg/dL Normal 4-19 [facility] Comment on above: Performed By: #### L 100.0100, L500.2500 ####[facility] [address] [place], [address] Basophil percentageOrdered B y: Devin Curry on 10-23-2024 Basophils/100 WBC (Bld) 0.3 % 0-1 [facility] CBC W/Diff, Automatedon 10-05 Absolute Lymph 1.48 X10 3/uL Normal 0.83-4.51 [facility] Comment on above: Performed By: #### L 100.0100, L500.2500 ####[facility] [address] [place], [address] Absolute Neut 4.7 X10 3/uL Normal 2.0-7.7 [facility] Comment on above: Performed By: #### L 100.0100, L500.2500 ####[facility] [address] [place], [address] Basophils/100 WBC (Bld) 0.3 % Normal 0-1 [facility] Comment on above: Performed By: #### L 100.0100, L500.2500 ####[facility] [address] [place], [address] Eosinophils/100 WBC (Bld) 3.4 % Normal 0-5 [facility] Comment on above: Performed By: #### L 100.0100, L500.2500 ####[facility] [address], [address] Erythrocyte distribution width (RBC) [Ratio] 12.8 % Normal 11.6-14.6 [facility] Comment on above: Performed By: #### L 100.0100, L500.2500 ####[facility] [address] [place], [address] Hematocrit (Bld) [Volume fraction] 42.4 % Normal 40-54 [facility] Comment on above: Performed By: #### L 100.0100, L500.2500 ####[facility] [address] [place], [address] Hemoglobin (Bld) [Mass/Vol] 14.0 g/dL Normal 13.0-16.5 [facility] Comment on above: Performed By: #### L 100.0100, L500.2500 ####[facility] [address] [place], [address] IG% 0.100 Normal 0.0-0.9 [facility] Comment on above: Result Comment: IG% - Immature Granulocytes (promyelocytes, myelocytes andmetamyelocytes) > 1% indicates that a LEFT SHIFT is Present. Performed By: #### L 100.0100, L500.2500 ####[facility] [address] [place], [address] Lymphocytes/100 WBC (Bld) 21.6 % Normal 19-41 [facility] Comment on above: Performed By: #### L 100.0100, L500.2500 ####[facility] [address] [place], [address] MCH (RBC) [Entitic mass] 30.8 pg Normal 27.0-32.0 [facility] Comment on above: Performed By: #### L 100.0100, L500.2500 ####[facility] [address] [place], [address] MCHC (RBC) [Mass/Vol] 33.0 g/dL Normal 32-36 [facility] Comment on above: Performed By: #### L 100.0100, L500.2500 ####[facility] [address] [place], [address] MCV (RBC) [Entitic vol] 93.2 fL Normal 80-94 [facility] Comment on above: Performed By: #### L 100.0100, L500.2500 ####[facility] [address] [place], [address] Monocytes/100 WBC (Bld) 6.1 % Normal 0-10 [facility] Comment on above: Performed By: #### L 100.0100, L500.2500 ####[facility] [address] [place], [address] Neutrophils/100 WBC (Bld) 68.5 % Normal 47-70 [facility] Comment on above: Performed By: #### L 100.0100, L500.2500 ####[facility] [address] [place], [address] Nucleated RBC (Bld) [#/Vol] 0 10*3/uL Normal 0-5 [facility] Comment on above: Performed By: #### L 100.0100, L500.2500 ####[facility] [address] [place], [address] Platelet mean volume (Bld) [Entitic vol] 10.0 fL Normal 6.2-12.0 [facility] Comment on above: Performed By: #### L 100.0100, L500.2500 ####[facility] [address] [place], [address] Platelets (Bld) [#/Vol] 255 10*3/uL Normal 150-450 [facility] Comment on above: Performed By: #### L 100.0100, L500.2500 ####[facility] [address] [place], [address] RBC (Bld) [#/Vol] 4.55 10*6/uL Low 4.6-6.2 [facility] Comment on above: Performed By: #### L 100.0100, L500.2500 ####[facility] [address] [place], [address] RDW SD 43.9 fl Normal 35.1-43.9 [facility] Comment on above: Performed By: #### L 100.0100, L500.2500 ####[facility] [address] [place], [address] WBC (Bld) [#/Vol] 6.9 10*3/uL Normal 4.4-11.0 [facility] Comment on above: Performed By: #### L 100.0100, L500.2500 ####[facility] [address] [place], [address] Carbon dioxide, total [Moles /volume] in Central venous bloodOrdered By: Devin Curry on 10-23-2024 CO2 [Moles/Vol] 26.0 mmol/L 21.0-32.0 [facility] Chloride assayOrdered By: Davian Curry on 10-23-2024 Chloride [Moles/Vol] 100 mmol/L 98-108 [facility] Emergency Department Summary on 10-23-2024 Emergency [...] (RBC) [Entitic vol] 93.2 fL 80-94 [facility] Mean corpuscular hemoglobin (MCH) determinationOrdered By: Devin Curry on 10-23-2024 MCH (RBC) [Entitic mass] 30.8 pg 27.0-32.0 [facility] Monocyte percentageOrdered B y: Devin Curry on 10-23-2024 Monocytes/100 WBC (Bld) 6.1 % 0-10 [facility] Neutrophil percentageOrdered By: Devin Curry on [...] RBC (Bld) [#/Vol] 4.55 10*6/uL Low 4.6-6.2 [facility] Serum creatinine measurement (mass/volume)Ordered By: Devin Curry on 10-23-2024 Creatinine [Mass/Vol] 1.00 mg/dL 0.70-1.20 [facility] Serum glucose measurement (m ass/volume)Ordered By: Devin Curry on 10-23-2024 Glucose [Mass/Vol] 256 mg/dL High 70-99 [facility] Serum or plasma calcium brenda urement (mass/volume)Ordered By: Devin Curry on 10-23-2024 Calcium [Mass/Vol] 9.3 mg/dL 7.6-11.0 [facility] Serum or plasma urea nitroge n measurement (mass/volume)Ordered By: Devin Curry on 10-23-2024 Urea nitrogen [Mass/Vol] 18 mg/dL 4-19 [facility] Sodium levelOrdered By: Devin Curry on 10-23-2024 Sodium [Moles/Vol] 138 mmol/L 133-145 [facility] White blood cell (WBC) count Ordered By: Devin Curry on 10-23-2024 WBC (Bld) [#/Vol] 6.9 10*3/uL 4.4-11.0 [facility] Emergency Department Summary on 10-21-2024 Emergency Department Summary Normal [facility] Absolute lymphocyte countOrd ered By: Valentín Miller on 10-19-2024 Lymphocytes Auto (Unsp spec) [#/Vol] 1.65 10*3/uL 0.83-4.51 [facility] Anion gap in Serum or Plasma Ordered By: Valentín Miller on 10-19-2024 Anion gap [Moles/Vol] 13 mmol/L 5- [facility] Automated lymphocyte count a s [...] 503.7505, L501.4021, L100.0100, L500.2500 ####[facility] [address] [place], [address] Calcium [Mass/Vol] 9.2 mg/dL Normal 7.6-11.0 [facility] Comment on above: Performed By: #### L 503.7505, L501.4021, L100.0100, L500.2500 ####[facility] [address] [place], [address] Chloride [Moles/Vol] 98 mmol/L Normal 98-108 [facility] Comment on above: Performed By: #### L 503.7505, L501.4021, L100.0100, L500.2500 ####[facility] [address] [place], [address] CO2 [Moles/Vol] 22.6 mmol/L Normal 21.0-32.0 [facility] Comment on above: Performed By: #### L 503.7505, L501.4021, L100.0100, L500.2500 ####[facility] [address] [place], [address] Creatinine [Mass/Vol] 1.19 mg/dL Normal 0.70-1.20 [facility] Comment on above: Performed By: #### L 503.7505, L501.4021, L100.0100, L500.2500 ####[facility] [address] [place], [address] ECRCL 66.79 ml/min Normal 50-250 [facility] Comment on above: Performed By: #### L 503.7505, L501.4021, L100.0100, L500.2500 ####[facility] [address] [place], [address] GAP 13 Normal 5-15 [facility] Comment on above: Performed By: #### L 503.7505, L501.4021, L100.0100, L500.2500 ####[facility] [address] [place], [address] GFR/1.73 sq M.predicted among non-blacks MDRD (S/P/Bld) [Vol rate/Area] 68 mL/min/{1.73_m2} Normal >60 [facility] Comment on above: Result Comment: mL/m in/1.73m2 CKD-EPI Creatinine Equation (2020) Performed By: #### L 503.7505, L501.4021, L100.0100, L500.2500 ####[facility] [address] [place], [address] Glucose [Mass/Vol] 343 mg/dL High 70-99 [facility] Comment on above: Performed By: #### L 503.7505, L501.4021, L100.0100, L500.2500 ####[facility] [address] [place], [address] Potassium [Moles/Vol] 5.5 mmol/L High 3.3-5.1 [facility] Comment on above: Result Comment: Hemo lysis present, Results??could be affected.??Hemolysis present, Results??could be affected.?? Performed By: #### L 503.7505, L501.4021, L100.0100, L500.2500 ####[facility] [address] [place], [address] Sodium [Moles/Vol] 133 mmol/L Normal 133-145 [facility] Comment on above: Performed By: #### L 503.7505, L501.4021, L100.0100, L500.2500 ####[facility] [address] [place], [address] Urea nitrogen [Mass/Vol] 19 mg/dL Normal 4-19 [facility] Comment on above: Performed By: #### L 503.7505, L501.4021, L100.0100, L500.2500 ####[facility] [address] [place], [address] Basophil percentageOrdered B y: Valentín Paul on 10-19-2024 Basophils/100 WBC (Bld) 0.3 % 0-1 [facility] CBC W/Diff, Automatedon 10-04 Absolute Lymph 1.65 X10 3/uL Normal 0.83-4.51 [facility] Comment on above: Performed By: #### L 503.7505, L501.4021, L100.0100, L500.2500 ####[facility] [address] [place], [address] Absolute Neut 4.4 X10 3/uL Normal 2.0-7.7 [facility] Comment on above: Performed By: #### L 503.7505, L501.4021, L100.0100, L500.2500 ####[facility] [address] [place], [address] Basophils/100 WBC (Bld) 0.3 % Normal 0-1 [facility] Comment on above: Performed By: #### L 503.7505, L501.4021, L100.0100, L500.2500 ####[facility] [address] [place], [address] Eosinophils/100 WBC (Bld) 3.1 % Normal 0-5 [facility] Comment on above: Performed By: #### L 503.7505, L501.4021, L100.0100, L500.2500 ####[facility] [address] [place], [address] Erythrocyte distribution width (RBC) [Ratio] 12.6 % Normal 11.6-14.6 [facility] Comment on above: Performed By: #### L 503.7505, L501.4021, L100.0100, L500.2500 ####[facility] [address] [place], [address] Hematocrit (Bld) [Volume fraction] 40.7 % Normal 40-54 [facility] Comment on above: Performed By: #### L 503.7505, L501.4021, L100.0100, L500.2500 ####[facility] [address] [place], [address] Hemoglobin (Bld) [Mass/Vol] 13.7 g/dL Normal 13.0-16.5 [facility] Comment on above: Performed By: #### L 503.7505, L501.4021, L100.0100, L500.2500 ####[facility] [address] [place], [address] IG% 0.100 Normal 0.0-0.9 [facility] Comment on above: Result Comment: IG% - Immature Granulocytes (promyelocytes, myelocytes andmetamyelocytes) > 1% indicates that a LEFT SHIFT is Present. Performed By: #### L 503.7505, L501.4021, L100.0100, L500.2500 ####[facility] [address] [place], [address] Lymphocytes/100 WBC (Bld) 24.7 % Normal 19-41 [facility] Comment on above: Performed By: #### L 503.7505, L501.4021, L100.0100, L500.2500 ####[facility] [address] [place], [address] MCH (RBC) [Entitic mass] 31.2 pg Normal 27.0-32.0 [facility] Comment on above: Performed By: #### L 503.7505, L501.4021, L100.0100, L500.2500 ####[facility] [address] [place], [address] MCHC (RBC) [Mass/Vol] 33.7 g/dL Normal 32-36 [facility] Comment on above: Performed By: #### L 503.7505, L501.4021, L100.0100, L500.2500 ####[facility] [address] [place], [address] MCV (RBC) [Entitic vol] 92.7 fL Normal 80-94 [facility] Comment on above: Performed By: #### L 503.7505, L501.4021, L100.0100, L500.2500 ####[facility] [address] [place], [address] Monocytes/100 WBC (Bld) 6.1 % Normal 0-10 [facility] Comment on above: Performed By: #### L 503.7505, L501.4021, L100.0100, L500.2500 ####[facility] [address] [place], [address] Neutrophils/100 WBC (Bld) 65.7 % Normal 47-70 [facility] Comment on above: Performed By: #### L 503.7505, L501.4021, L100.0100, L500.2500 ####[facility] [address] [place], [address] Nucleated RBC (Bld) [#/Vol] 0 10*3/uL Normal 0-5 [facility] Comment on above: Performed By: #### L 503.7505, L501.4021, L100.0100, L500.2500 ####[facility] [address] [place], [address] Platelet mean volume (Bld) [Entitic vol] 10.0 fL Normal 6.2-12.0 [facility] Comment on above: Performed By: #### L 503.7505, L501.4021, L100.0100, L500.2500 ####[facility] [address] [place], [address] Platelets (Bld) [#/Vol] 241 10*3/uL Normal 150-450 [facility] Comment on above: Performed By: #### L 503.7505, L501.4021, L100.0100, L500.2500 ####[facility] [address] [place], [address] RBC (Bld) [#/Vol] 4.39 10*6/uL Low 4.6-6.2 [facility] Comment on above: Performed By: #### L 503.7505, L501.4021, L100.0100, L500.2500 ####[facility] [address] [place], [address] RDW SD 43.1 fl Normal 35.1-43.9 [facility] Comment on above: Performed By: #### L 503.7505, L501.4021, L100.0100, L500.2500 ####[facility] [address] [place], [address] WBC (Bld) [#/Vol] 6.7 10*3/uL Normal 4.4-11.0 [facility] Comment on above: Performed By: #### L 503.7505, L501.4021, L100.0100, L500.2500 ####[facility] [address] [place], [address] Carbon dioxide, total [Moles /volume] in Central venous bloodOrdered By: Valentín Miller on 10-19-2024 CO2 [Moles/Vol] 22.6 mmol/L 21.0-32.0 [facility] Chest 1 View (Portable)on Chest 1 View (Portable) Normal [facility] Chloride assayOrdered By: wil Miller on 10-19-2024 Chloride [Moles/Vol] 98 mmol/L 98-108 [facility] Emergency Department Summary on 10-19-2024 Emergency [...] By: #### L 499.0042 ####[facility] [address] [place], [address] L499.0043on 10-19-2024 Trop T High Sen 26 ng/L High <=22 [facility] Comment on above: Performed By: #### L 499.0043 ####[facility] [address] [place], [address] L501.4021on 10-19-2024 Trop T High Sen 25 ng/L High <=22 [facility] Comment on above: Result Comment: Hemo lysis present, Results??could be affected.??Hemolysis present, Results??could be affected.?? Performed By: #### L 503.7505, L501.4021, L100.0100, L500.2500 ####[facility] [address] [place], [address] L503.7505on 10-19-2024 Natriuretic peptide B (Bld) [Mass/Vol] 4100 pg/mL High <=900 [facility] Comment on above: Result Comment: Hear t Failure Unlikely: < 300 pg/mLHeart Failure Likely< 50 Years: > 450 pg/mL50-75 Years: > 900 pg/mL>75 Years: > 1800 pg/mL Performed By: #### L 503.7505, L501.4021, L100.0100, L500.2500 ####[facility] [address] [place], [address] M100.678on 10-19-2024 M100.678 Pending SARS-CoV-2 (COVID 19) Negative INFLUENZA A Negative INFLUENZA B Negative RSV PCR Negative Normal [facility] Comment on above: Performed By: #### M 100.678 ####[facility] [address] [place], [address] MCV (mean corpuscular volume ) determinationOrdered By: Valentín Miller on 10-19-2024 MCV (RBC) [Entitic vol] 92.7 fL 80-94 [facility] Mean corpuscular hemoglobin (MCH) determinationOrdered By: Valentín Miller on 10-19-2024 MCH (RBC) [Entitic mass] 31.2 pg 27.0-32.0 [facility] Monocyte percentageOrdered B y: Valentín Miller on 10-19-2024 Monocytes/100 WBC (Bld) 6.1 % 0-10 [facility] Natriuretic peptide.B prohor parris N-Terminal [Mass/volume] [...] RBC (Bld) [#/Vol] 4.39 10*6/uL Low 4.6-6.2 [facility] Serum creatinine measurement (mass/volume)Ordered By: Valentín Miller on 10-19-2024 Creatinine [Mass/Vol] 1.19 mg/dL 0.70-1.20 [facility] Serum glucose measurement (m ass/volume)Ordered By: Valentín Miller on 10-19-2024 Glucose [Mass/Vol] 343 mg/dL High 70-99 [facility] Serum or plasma calcium brenda urement (mass/volume)Ordered By: Valentín Miller on 10-19-2024 Calcium [Mass/Vol] 9.2 mg/dL 7.6-11.0 [facility] Serum or plasma urea nitroge n measurement (mass/volume)Ordered By: Valentín Miller on 10-19-2024 Urea nitrogen [Mass/Vol] 19 mg/dL 4-19 [facility] Sodium levelOrdered By: Uli Miller on 10-19-2024 Sodium [Moles/Vol] 133 mmol/L 133-145 [facility] Troponin T.cardiac [Mass/vol ume] in Serum [...] WBC (Bld) [#/Vol] 6.7 10*3/uL 4.4-11.0 [facility] Cardiology Visit Reporton Cardiology Visit Report Normal [facility] Bedside Glucoseon 09-21-2024 FINGERSTICK GLU 223 mg/dL High 74-106 [facility] Comment on above: Result Comment: SNEHA GEMENT OF PATIENT CARE PER NURSING PROTOCOL Performed By: #### L 501.080 ####[facility] [address] [place], [address] FINGERSTICK GLU 197 mg/dL High 74-106 [facility] Comment on above: Result Comment: SNEHA GEMENT OF PATIENT CARE PER NURSING PROTOCOL Performed By: #### L 501.080 ####[facility] [address] [place], [address] FINGERSTICK GLU 163 mg/dL High 74-106 [facility] Comment on above: Result Comment: SNEHA GEMENT OF PATIENT CARE PER NURSING PROTOCOL Performed By: #### L 501.080 ####[facility] [address] [place], [address] Calculated very low density lipoprotein (VLDL) cholesterol measurementOrdered By: Seth Carrington on 09-21-2024 Calculated very low density lipoprotein (VLDL) cholesterol measurement 31 mg/dL 5-40 [facility] Discharge Instructionon 09-04 Discharge Instruction Normal [facility] Gl[facility] at [facility] deOrdered By: Donna Wolff on 09-21-2024 Glucose [Mass/Vol] 223 mg/dL High 74-106 [facility] LDL calc ser/plasOrdered By: Seth Carrington on 09-21-2024 Cholesterol in LDL [Mass/Vol] 18 mg/dL [facility] Lipid Profileon 09-21-2024 CHOL:HDL 2.11 Normal [facility] Comment on above: Performed By: #### L 500.4100 ####[facility] [address] [place], [address] Cholesterol [Mass/Vol] 93 mg/dL Normal <=200 [place] Comment on above: Result Comment: Chol esterol level, Desirable <200 mg/dLBorderline high cholesterol 200-239 mg/dLHigh cholesterol >=240 mg/dLRecommendations of the NCEP Adult Treatment Panel for thefollowing risk-cutoff thresholds for the [place] Americanpopulation. Performed By: #### L 500.4100 ####[facility] [address] [place], [address] Cholesterol in HDL [Mass/Vol] 44 mg/dL Normal [facility] Comment on above: Result Comment: Audrey onal Cholesterol Education Program (NCEP) guidelines:<40 mg/dL: Low HDL-cholesterol (major risk factor for CHD)>= 60 mg/dL: High HDL-cholesterol (negative risk factor forCHD)HDL-cholesterol is affected by a number of factors, e.g.smoking, exercise, hormones, sex and age. Performed By: #### L 500.4100 ####[facility] [address] [place], [address] Cholesterol in LDL [Mass/Vol] 18 mg/dL Normal [facility] Comment on above: Result Comment: Bord enqygy=566-900 mg/dL Higher Gjma=069 mg/dL or greater Performed By: #### L 500.4100 ####[facility] [address] [place], [address] Cholesterol in VLDL [Mass/Vol] 31 mg/dL Normal 5-40 [facility] Comment on above: Performed By: #### L 500.4100 ####[facility] [address] [place], [address] Triglyceride [Mass/Vol] 155 mg/dL Normal [facility] Comment on above: Result Comment: The drugs N-Acetylcysteine and Metamizole may falselydepress this assay.Normal range: <150 mg/dLBorderline High: 150-199 mg/dLHigh: 200-499 mg/dLVery High: >500 mg/dL Performed By: #### L 500.4100 ####[facility] [address] [place], [address] Serum or plasma cholesterol in HDL measurement (mass/volume)Ordered By: Seth Carrington on 09-21-2024 Cholesterol in HDL [Mass/Vol] 44 mg/dL >40 [facility] Serum or plasma cholesterol measurement (mass/volume)Ordered By: Seth Carrington on 09-21-2024 Cholesterol [Mass/Vol] 93 mg/dL <201 [place] Anion gap in Serum or Plasma Ordered By: Seth Carrington on 09-20-2024 Anion gap [Moles/Vol] 11 mmol/L 5-15 [facility] BUN/creatinine ratioOrdered By: Seth Carrington on 09-20-2024 Urea nitrogen/Creatinine [Mass ratio] 17.8 mg/mg - [facility] Basic Metabolic Profile (BMP )on 09-20-2024 BUN/CRE 17.8 RATIO Normal - [facility] Comment on above: Performed By: #### L 500.2500 ####[facility] [address] [place], [address] Calcium [Mass/Vol] 9.4 mg/dL Normal 7.6-11.0 [facility] Comment on above: Performed By: #### L 500.2500 ####[facility] [address] [place], [address] Chloride [Moles/Vol] 100 mmol/L Normal 98-108 [facility] Comment on above: Performed By: #### L 500.2500 ####[facility] [address] [place], [address] CO2 [Moles/Vol] 25.3 mmol/L Normal 21.0-32.0 [facility] Comment on above: Performed By: #### L 500.2500 ####[facility] [address] [place], [address] Creatinine [Mass/Vol] 1.11 mg/dL Normal 0.70-1.20 [facility] Comment on above: Performed By: #### L 500.2500 ####[facility] [address] [place], [address] ECRCL 71.61 ml/min Normal 50-250 [facility] Comment on above: Performed By: #### L 500.2500 ####[facility] [address] [place], [address] GAP 11 Normal 5-15 [facility] Comment on above: Performed By: #### L 500.2500 ####[facility] [address] [place], [address] GFR/1.73 sq M.predicted among non-blacks MDRD (S/P/Bld) [Vol rate/Area] 74 mL/min/{1.73_m2} Normal >60 [facility] Comment on above: Result Comment: mL/m in/1.73m2 CKD-EPI Creatinine Equation (2020) Performed By: #### L 500.2500 ####[facility] [address] [place], [address] Glucose [Mass/Vol] 148 mg/dL High 70-99 [facility] Comment on above: Performed By: #### L 500.2500 ####[facility] [address] [place], [address] Potassium [Moles/Vol] 4.0 mmol/L Normal 3.3-5.1 [facility] Comment on above: Performed By: #### L 500.2500 ####[facility] [address] [place], [address] Sodium [Moles/Vol] 136 mmol/L Normal 133-145 [facility] Comment on above: Performed By: #### L 500.2500 ####[facility] [address] [place], [address] Urea nitrogen [Mass/Vol] 20 mg/dL High 4-19 [facility] Comment on above: Performed By: #### L 500.2500 ####[facility] [address] [place], [address] Bedside Glucoseon 09-20-2024 FINGERSTICK GLU 152 mg/dL High 74-106 [facility] Comment on above: Result Comment: SNEHA GEMENT OF PATIENT CARE PER NURSING PROTOCOL Performed By: #### L 501.080 ####[facility] [address] [facility] [address] FINGERSTICK GLU 190 mg/dL High 74-106 [facility] Comment on above: Result Comment: SNEHA GEMENT OF PATIENT CARE PER NURSING PROTOCOL Performed By: #### L 501.080 ####[facility] [address] [place], [address] FINGERSTICK GLU 246 mg/dL High 74-106 [facility] Comment on above: Result Comment: SNEHA GEMENT OF PATIENT CARE PER NURSING PROTOCOL Performed By: #### L 501.080 ####[facility] [address] [facility] [address] FINGERSTICK GLU 154 mg/dL High [facility]106 [facility] Comment on above: Result Comment: SNEHA GEMENT OF PATIENT CARE PER NURSING PROTOCOL Performed By: #### L 501.080 ####[facility] [address] [facility] [address] Carbon dioxide, total [Moles /volume] in Central venous bloodOrdered By: Seth Carrington on 09-20-2024 CO2 [Moles/Vol] 25.3 mmol/L 21.0-32.0 [facility] Chloride assayOrdered By: Carol Carrington on 09-20-2024 Chloride [Moles/Vol] 100 mmol/L 98-108 [facility] Electrocardiogram reportOrde red By: Calos Quinn [...] on 09-20-2024 Creatinine [Mass/Vol] 1.11 mg/dL 0.70-1.20 [facility] Serum glucose measurement (m ass/volume)Ordered By: Seth Carrington on 09-20-2024 Glucose [Mass/Vol] 148 mg/dL High 70-99 [facility] Serum or plasma calcium brenda urement (mass/volume)Ordered By: Seth Carrington on 09-20-2024 Calcium [Mass/Vol] 9.4 mg/dL 7.6-11.0 [facility] Serum or plasma urea nitroge n measurement (mass/volume)Ordered By: Seth Carrington on 09-20-2024 Urea nitrogen [Mass/Vol] 20 mg/dL High 4-19 [facility] Sodium levelOrdered By: Seth Carrington on 09-20-2024 Sodium [Moles/Vol] 136 mmol/L 133-145 [facility] Basic Metabolic Profile (BMP )on 09-19-2024 BUN/CRE 18.5 RATIO Normal 10-20 [facility] Comment on above: Performed By: #### L 500.2500, L100.0500 ####[facility] [address] [place], [address] Calcium [Mass/Vol] 9.4 mg/dL Normal 7.6-11.0 [facility] Comment on above: Performed By: #### L 500.2500, L100.0500 ####[facility] [address] [place], [address] Chloride [Moles/Vol] 99 mmol/L Normal 98-108 [facility] Comment on above: Performed By: #### L 500.2500, L100.0500 ####[facility] [address] [place], [address] CO2 [Moles/Vol] 24.3 mmol/L Normal 21.0-32.0 [facility] Comment on above: Performed By: #### L 500.2500, L100.0500 ####[facility] [address] [place], [address] Creatinine [Mass/Vol] 1.13 mg/dL Normal 0.70-1.20 [facility] Comment on above: Performed By: #### L 500.2500, L100.0500 ####[facility] [address] [place], [address] ECRCL 70.34 ml/min Normal 50-250 [facility] Comment on above: Performed By: #### L 500.2500, L100.0500 ####[facility] [address] [place], [address] GAP 13 Normal 5-15 [facility] Comment on above: Performed By: #### L 500.2500, L100.0500 ####[facility] [address] [place], [address] GFR/1.73 sq M.predicted among non-blacks MDRD (S/P/Bld) [Vol rate/Area] 73 mL/min/{1.73_m2} Normal >60 [facility] Comment on above: Result Comment: mL/m in/1.73m2 CKD-EPI Creatinine Equation (2020) Performed By: #### L 500.2500, L100.0500 ####[facility] [address] [place], [address] Glucose [Mass/Vol] 187 mg/dL High 70-99 [facility] Comment on above: Performed By: #### L 500.2500, L100.0500 ####[facility] [address] [place], [address] Potassium [Moles/Vol] 3.7 mmol/L Normal 3.3-5.1 [facility] Comment on above: Performed By: #### L 500.2500, L100.0500 ####[facility] [address] [place], [address] Sodium [Moles/Vol] 136 mmol/L Normal 133-145 [facility] Comment on above: Performed By: #### L 500.2500, L100.0500 ####[facility] [address], [address] Urea nitrogen [Mass/Vol] 21 mg/dL High 4-19 [facility] Comment on above: Performed By: #### L 500.2500, L100.0500 ####[facility] [address] [place], [address] Bedside Glucoseon 09-19-2024 FINGERSTICK GLU 198 mg/dL High 74-106 [facility] Comment on above: Result Comment: SNEHA GEMENT OF PATIENT CARE PER NURSING PROTOCOL Performed By: #### L 501.080 ####[facility] [address] [place], [address] FINGERSTICK GLU 170 mg/dL High 74-106 [facility] Comment on above: Result Comment: SNEHA GEMENT OF PATIENT CARE PER NURSING PROTOCOL Performed By: #### L 501.080 ####[facility] [address] [place], [address] FINGERSTICK GLU 193 mg/dL High 74-106 [facility] Comment on above: Result Comment: SNEHA GEMENT OF PATIENT CARE PER NURSING PROTOCOL Performed By: #### L 501.080 ####[facility] [address] [place], [address] FINGERSTICK GLU 163 mg/dL High 74-106 [facility] Comment on above: Result Comment: SNEHA GEMENT OF PATIENT CARE PER NURSING PROTOCOL Performed By: #### L 501.080 ####[facility] [address] [place], [address] CBC-Complete Blood Cnt No Guera chou 09-19-2024 Erythrocyte distribution width (RBC) [Ratio] 12.5 % Normal 11.6-14.6 [facility] Comment on above: Performed By: #### L 500.2500, L100.0500 ####[facility] [address] [place], [address] Hematocrit (Bld) [Volume fraction] 44.2 % Normal 40-54 [facility] Comment on above: Performed By: #### L 500.2500, L100.0500 ####[facility] [address] [place], [address] Hemoglobin (Bld) [Mass/Vol] 14.8 g/dL Normal 13.0-16.5 [facility] Comment on above: Performed By: #### L 500.2500, L100.0500 ####[facility] [address] [place], [address] MCH (RBC) [Entitic mass] 31.1 pg Normal 27.0-32.0 [facility] Comment on above: Performed By: #### L 500.2500, L100.0500 ####[facility] [address] [place], [address] MCHC (RBC) [Mass/Vol] 33.5 g/dL Normal 32-36 [facility] Comment on above: Performed By: #### L 500.2500, L100.0500 ####[facility] [address] [place], [address] MCV (RBC) [Entitic vol] 92.9 fL Normal 80-94 [facility] Comment on above: Performed By: #### L 500.2500, L100.0500 ####[facility] [address] [place], [address] Platelet mean volume (Bld) [Entitic vol] 9.5 fL Normal 6.2-12.0 [facility] Comment on above: Performed By: #### L 500.2500, L100.0500 ####[facility] [address] [place], [address] Platelets (Bld) [#/Vol] 297 10*3/uL Normal 150-450 [facility] Comment on above: Performed By: #### L 500.2500, L100.0500 ####[facility] [address] [place], [address] RBC (Bld) [#/Vol] 4.76 10*6/uL Normal 4.6-6.2 [facility] Comment on above: Performed By: #### L 500.2500, L100.0500 ####[facility] [address] [place], [address] RDW SD 43.1 fl Normal 35.1-43.9 [facility] Comment on above: Performed By: #### L 500.2500, L100.0500 ####[facility] [address] [place], [address] WBC (Bld) [#/Vol] 7.7 10*3/uL Normal 4.4-11.0 [facility] Comment on above: Performed By: #### L 500.2500, L100.0500 ####[facility] [address] [place], [address] Erythrocyte distribution wid th ratioOrdered By: Clinton [...] (RBC) [Entitic vol] 92.9 fL 80-94 [facility] Mean corpuscular hemoglobin (MCH) determinationOrdered By: Clinton Soares on 09-19-2024 MCH (RBC) [Entitic mass] 31.1 pg 27.0-32.0 [facility] Platelet countOrdered By: Buzz Soares on 09-19-2024 Platelets (Bld) [#/Vol] 297 10*3/uL 150-450 [facility] RBC Auto (Bld) [#/Vol]Ordere d By: Clinton Soares on 09-19-2024 RBC (Bld) [#/Vol] 4.76 10*6/uL 4.6-6.2 [facility] White blood cell (WBC) count Ordered By: Clinton Soares on 09-19-2024 WBC (Bld) [#/Vol] 7.7 10*3/uL 4.4-11.0 [facility] 12 Lead EKGon 09-18-2024 12 Lead EKG Normal [facility] Absolute lymphocyte countOrd ered By: Saúl Aguilar on 09-18-2024 Lymphocytes Auto (Unsp spec) [#/Vol] 2.05 10*3/uL 0.83-4.51 [facility] Anion gap in Serum or Plasma Ordered By: Saúl Aguilar on 09-18-2024 Anion gap [Moles/Vol] 12 mmol/L -15 [facility] Automated lymphocyte count a s percentage of total leukocytesOrdered By: Saúl Aguilar on 09-18-2024 Lymphocytes/100 WBC Auto (Unsp spec) 27.0 % 19-41 [facility] BUN/creatinine ratioOrdered By: Saúl Aguilar on 09-18-2024 Urea nitrogen/Creatinine [Mass ratio] 16.5 mg/mg 10-20 [facility] Basic Metabolic Profile (BMP )on 09-18-2024 BUN/CRE 16.5 RATIO Normal - [facility] Comment on above: Performed By: #### L 500.2500, L503.7505 ####[facility] [address] [place], [address] Calcium [Mass/Vol] 9.3 mg/dL Normal 7.6-11.0 [facility] Comment on above: Performed By: #### L 500.2500, L503.7505 ####[facility] [address] [place], [address] Chloride [Moles/Vol] 105 mmol/L Normal 98-108 [facility] Comment on above: Performed By: #### L 500.2500, L503.7505 ####[facility] [address] [place], [address] CO2 [Moles/Vol] 22.3 mmol/L Normal 21.0-32.0 [facility] Comment on above: Performed By: #### L 500.2500, L503.7505 ####[facility] [address] [place], [address] Creatinine [Mass/Vol] 1.01 mg/dL Normal 0.70-1.20 [facility] Comment on above: Performed By: #### L 500.2500, L503.7505 ####[facility] [address] [place], [address] GAP 12 Normal 5-15 [facility] Comment on above: Performed By: #### L 500.2500, L503.7505 ####[facility] [address] [place], [address] GFR/1.73 sq M.predicted among non-blacks MDRD (S/P/Bld) [Vol rate/Area] 83 mL/min/{1.73_m2} Normal >60 [facility] Comment on above: Result Comment: mL/m in/1.73m2 CKD-EPI Creatinine Equation (2020) Performed By: #### L 500.2500, L503.7505 ####[facility] [address] [place], [address] Glucose [Mass/Vol] 184 mg/dL High 70-99 [facility] Comment on above: Performed By: #### L 500.2500, L503.7505 ####[facility] [address] [place], [address] Potassium [Moles/Vol] 5.0 mmol/L Normal 3.3-5.1 [facility] Comment on above: Result Comment: Hemo lysis present, Results??could be affected.?? Performed By: #### L 500.2500, L503.7505 ####[facility] [address], [address] Sodium [Moles/Vol] 139 mmol/L Normal 133-145 [facility] Comment on above: Performed By: #### L 500.2500, L503.7505 ####[facility] [address] [place], [address] Urea nitrogen [Mass/Vol] 17 mg/dL Normal 4-19 [facility] Comment on above: Performed By: #### L 500.2500, L503.7505 ####[facility] [address] [place], [address] Basophil percentageOrdered B y: Saúl Aguilar on 09-18-2024 Basophils/100 WBC (Bld) 0.4 % 0-1 [facility] Bedside Glucoseon 09-18-2024 FINGERSTICK GLU 327 mg/dL High 74-106 [facility] Comment on above: Result Comment: SNEHA PERLA OF PATIENT CARE PER NURSING PROTOCOL Performed By: #### L 501.080 ####[facility] [address] [place], [address] FINGERSTICK GLU 207 mg/dL High 74-106 [facility] Comment on above: Result Comment: SNEHA DUNCAN OF PATIENT CARE PER NURSING PROTOCOL Performed By: #### L 501.080 ####[facility] [address] [place], [address] CBC W/Diff, Automatedon 06-04 10-2024 Absolute Lymph 2.05 X10 3/uL Normal 0.83-4.51 [facility] Comment on above: Performed By: #### L 501.4021, L100.0100 ####[facility] [address] [place], [address] Absolute Neut 4.7 X10 3/uL Normal 2.0-7.7 [facility] Comment on above: Performed By: #### L 501.4021, L100.0100 ####[facility] [address] [place], [address] Basophils/100 WBC (Bld) 0.4 % Normal 0-1 [facility] Comment on above: Performed By: #### L 501.4021, L100.0100 ####[facility] [address] [place], [address] Eosinophils/100 WBC (Bld) 3.7 % Normal 0-5 [facility] Comment on above: Performed By: #### L 501.4021, L100.0100 ####[facility] [address] [place], [address] Erythrocyte distribution width (RBC) [Ratio] 12.9 % Normal 11.6-14.6 [facility] Comment on above: Performed By: #### L 501.4021, L100.0100 ####[facility] [address] [place], [address] Hematocrit (Bld) [Volume fraction] 44.4 % Normal 40-54 [facility] Comment on above: Performed By: #### L 501.4021, L100.0100 ####[facility] [address] [place], [address] Hemoglobin (Bld) [Mass/Vol] 14.8 g/dL Normal 13.0-16.5 [facility] Comment on above: Performed By: #### L 501.4021, L100.0100 ####[facility] [address] [place], [address] IG% 0.300 Normal 0.0-0.9 [facility] Comment on above: Result Comment: IG% - Immature Granulocytes (promyelocytes, myelocytes andmetamyelocytes) > 1% indicates that a LEFT SHIFT is Present. Performed By: #### L 501.4021, L100.0100 ####[facility] [address] [place], [address] Lymphocytes/100 WBC (Bld) 27.0 % Normal 19-41 [facility] Comment on above: Performed By: #### L 501.4021, L100.0100 ####[facility] [address] [place], [address] MCH (RBC) [Entitic mass] 31.9 pg Normal 27.0-32.0 [facility] Comment on above: Performed By: #### L 501.4021, L100.0100 ####[facility] [address] [place], [address] MCHC (RBC) [Mass/Vol] 33.3 g/dL Normal 32-36 [facility] Comment on above: Performed By: #### L 501.4021, L100.0100 ####[facility] [address] [place], [address] MCV (RBC) [Entitic vol] 95.7 fL High 80-94 [facility] Comment on above: Performed By: #### L 501.4021, L100.0100 ####[facility] [address] [place], [address] Monocytes/100 WBC (Bld) 6.7 % Normal 0-10 [facility] Comment on above: Performed By: #### L 501.4021, L100.0100 ####[facility] [address] [place], [address] Neutrophils/100 WBC (Bld) 61.9 % Normal 47-70 [facility] Comment on above: Performed By: #### L 501.4021, L100.0100 ####[facility] [address] [place], [address] Nucleated RBC (Bld) [#/Vol] 0 10*3/uL Normal 0-5 [facility] Comment on above: Performed By: #### L 501.4021, L100.0100 ####[facility] [address] [place], [address] Platelet mean volume (Bld) [Entitic vol] 9.5 fL Normal 6.2-12.0 [facility] Comment on above: Performed By: #### L 501.4021, L100.0100 ####[facility] [address] [place], [address] Platelets (Bld) [#/Vol] 276 10*3/uL Normal 150-450 [facility] Comment on above: Performed By: #### L 501.4021, L100.0100 ####[facility] [address] [place], [address] RBC (Bld) [#/Vol] 4.64 10*6/uL Normal 4.6-6.2 [facility] Comment on above: Performed By: #### L 501.4021, L100.0100 ####[facility] [address] [place], [address] RDW SD 45.1 fl High 35.1-43.9 [facility] Comment on above: Performed By: #### L 501.4021, L100.0100 ####[facility] [address] [place], [address] WBC (Bld) [#/Vol] 7.6 10*3/uL Normal 4.4-11.0 [facility] Comment on above: Performed By: #### L 501.4021, L100.0100 ####[facility] [address] [place], [address] Carbon dioxide, total [Moles /volume] in Central venous bloodOrdered By: Saúl Aguilar on 09-18-2024 CO2 [Moles/Vol] 22.3 mmol/L 21.0-32.0 [facility] Chest 1 View (Portable)on Chest 1 View (Portable) Normal [facility] Chloride assayOrdered By: Chacho Aguilar on 09-18-2024 Chloride [Moles/Vol] 105 mmol/L 98-108 [facility] Echo, Limited Studyon 2024 Echo, Limited Study Normal [facility] Emergency Department Summary on 09-18-2024 Emergency Department Summary Normal [facility] Eosinophil percentageOrdered By: Saúl Agiular on 09-18-2024 Eosinophils/100 WBC (Bld) 3.7 % [...] [facility] 09-18-2024 H&P Exam - Hospitalist Normal [place] Hematocrit Auto (Bld) [Volum e fraction]Ordered By: [...] By: #### L 501.9985 ####[facility] [address] [place], [place], [address] Hemoglobin A1c percentageOrd ered By: Clinton Soares [...] By: #### L 499.0042 ####[facility] [address] [place], [place], [address] L499.0043on 09-18-2024 Trop T High Sen 64 ng/L Invalid Interpretation Code <=22 [facility] Comment on above: Result Comment: Crit ical Result(s) Called at: 09/18/2024:33 by: Nesha to Amanda Haider.??Results read back by same. Performed By: #### L 499.0043 ####[facility] [address] [place], [address] L501.4021on 09-18-2024 Trop T High Sen 64 ng/L Invalid Interpretation Code <=22 [facility] Comment on above: Result Comment: Hemo lysis present, Results??could be affected.??Critical Result(s) Called at: 09/18/2024:33 by: Nesha to Dolly Rodriguez.??Results read back by same. Performed By: #### L 501.4021, L100.0100 ####[facility] [address] [place], [address] L503.750on 09-18-2024 Natriuretic peptide B (Bld) [Mass/Vol] 2552 pg/mL High <=900 [facility] Comment on above: Result Comment: Hear t Failure Unlikely: < 300 pg/mLHeart Failure Likely< 50 Years: > 450 pg/mL50-75 Years: > 900 pg/mL>75 Years: > 1800 pg/mL Performed By: #### L 500.2500, L503.1235 ####[facility] [address] [place], [place], [address] MCV (mean corpuscular volume ) determinationOrdered By: Saúl Aguilar on 09-18-2024 MCV (RBC) [Entitic vol] 95.7 fL High 80-94 [facility] Mean corpuscular hemoglobin (MCH) determinationOrdered By: Saúl Aguilar on 09-18-2024 MCH (RBC) [Entitic mass] 31.9 pg 27.0-32.0 [facility] Monocyte percentageOrdered B y: Saúl Aguilar on 09-18-2024 Monocytes/100 WBC (Bld) 6.7 % 0-10 [facility] Natriuretic peptide.B prohor parris N-Terminal [Mass/volume] [...] 09-18-2024 RBC (Bld) [#/Vol] 4.64 10*6/uL 4.6-6.2 [facility] Serum creatinine measurement (mass/volume)Ordered By: Saúl Aguilar on 09-18-2024 Creatinine [Mass/Vol] 1.01 mg/dL 0.70-1.20 [facility] Serum glucose measurement (m ass/volume)Ordered By: Saúl Aguilar on 09-18-2024 Glucose [Mass/Vol] 184 mg/dL High 70-99 [facility] Serum or plasma calcium brenda urement (mass/volume)Ordered By: Saúl Aguilar on 09-18-2024 Calcium [Mass/Vol] 9.3 mg/dL 7.6-11.0 [facility] Serum or plasma urea nitroge n measurement (mass/volume)Ordered By: Saúl Aguilar on 09-18-2024 Urea nitrogen [Mass/Vol] 17 mg/dL 4-19 [facility] Sodium levelOrdered By: Saúl Aguilar on 09-18-2024 Sodium [Moles/Vol] 139 mmol/L 133-145 [facility] Troponin T.cardiac [Mass/vol ume] in Serum [...] WBC (Bld) [#/Vol] 7.6 10*3/uL 4.4-11.0 [facility] Arterial study reportOrdered By: Saúl Flowers on 09-08-2024 Noninvasive arteriosclerosis study report [facility] Work Phone: [phone] Carotid Duplex Ultrasoundon 09-08-2024 Carotid Duplex Ultrasound Normal [facility] Duplex ultrasound of carotid artery reportOrdered By: Saúl Flowers on 09-08-2024 Study report [facility] Work Phone: [phone] Lower Ext Art Exam w/o Exerc [...] By: #### L 499.0043 ####[facility] [address] [place], [address] Absolute lymphocyte countOrd ered By: ED PROVIDER on 07-29-2024 Lymphocytes Auto (Unsp spec) [#/Vol] 2.79 10*3/uL 0.83-4.51 [facility] Anion gap in Serum or Plasma Ordered By: Lawson Castellon on 07-29-2024 Anion gap [Moles/Vol] 16 mmol/L High 5-15 [facility] Automated lymphocyte count a s percentage of total leukocytesOrdered By: ED PROVIDER on 07-29-2024 Lymphocytes/100 WBC Auto (Unsp spec) 37.4 % 19-41 [facility] BUN/creatinine ratioOrdered By: Lawson Castellon on 07-29-2024 Urea nitrogen/Creatinine [Mass ratio] 20.7 mg/mg High 01-23 [facility] Basic Metabolic Profile (BMP )on 07-29-2024 BUN/CRE 20.7 RATIO High 01-23 [facility] Comment on above: Performed By: #### L 501.4021, L500.2500, L100.0100 ####[facility] [address] [place], [address] Calcium [Mass/Vol] 9.3 mg/dL Normal 7.6-11.0 [facility] Comment on above: Performed By: #### L 501.4021, L500.2500, L100.0100 ####[facility] [address] [place], [address] Chloride [Moles/Vol] 99 mmol/L Normal 98-108 [facility] Comment on above: Performed By: #### L 501.4021, L500.2500, L100.0100 ####[facility] [address] [place], [address] CO2 [Moles/Vol] 19.8 mmol/L Low 21.0-32.0 [facility] Comment on above: Performed By: #### L 501.4021, L500.2500, L100.0100 ####[facility] [address] [place], [address] Creatinine [Mass/Vol] 1.11 mg/dL Normal 0.70-1.20 [facility] Comment on above: Performed By: #### L 501.4021, L500.2500, L100.0100 ####[facility] [address] [place], [address] ECRCL 71.61 ml/min Normal 50-250 [facility] Comment on above: Performed By: #### L 501.4021, L500.2500, L100.0100 ####[facility] [address] [place], [address] GAP 16 High 5-15 [facility] Comment on above: Performed By: #### L 501.4021, L500.2500, L100.0100 ####[facility] [address] [place], [address] GFR/1.73 sq M.predicted among non-blacks MDRD (S/P/Bld) [Vol rate/Area] 74 mL/min/{1.73_m2} Normal >60 [facility] Comment on above: Result Comment: mL/m in/1.73m2 CKD-EPI Creatinine Equation (2020) Performed By: #### L 501.4021, L500.2500, L100.0100 ####[facility] [address] [place], [address] Glucose [Mass/Vol] 400 mg/dL High 70-99 [facility] Comment on above: Performed By: #### L 501.4021, L500.2500, L100.0100 ####[facility] [address] [place], [address] Potassium [Moles/Vol] 4.0 mmol/L Normal 3.3-5.1 [facility] Comment on above: Result Comment: Hemo lysis present, Results??could be affected.?? Performed By: #### L 501.4021, L500.2500, L100.0100 ####[facility] [address] [place], [address] Sodium [Moles/Vol] 134 mmol/L Normal 133-145 [facility] Comment on above: Performed By: #### L 501.4021, L500.2500, L100.0100 ####[facility] [address] [place], [address] Urea nitrogen [Mass/Vol] 23 mg/dL High 4-19 [facility] Comment on above: Performed By: #### L 501.4021, L500.2500, L100.0100 ####[facility] [address] [place], [address] Basophil percentageOrdered B y: ED PROVIDER on 07-29-2024 Basophils/100 WBC (Bld) 0.3 % 0-1 [facility] CBC W/Diff, Automatedon 07-06 Absolute Lymph 2.79 X10 3/uL Normal 0.83-4.51 [facility] Comment on above: Performed By: #### L 501.4021, L500.2500, L100.0100 ####[facility] [address] [place], [address] Absolute Neut 4.0 X10 3/uL Normal 2.0-7.7 [facility] Comment on above: Performed By: #### L 501.4021, L500.2500, L100.0100 ####[facility] [address] [place], [address] Basophils/100 WBC (Bld) 0.3 % Normal 0-1 [facility] Comment on above: Performed By: #### L 501.4021, L500.2500, L100.0100 ####[facility] [address] [place], [address] Eosinophils/100 WBC (Bld) 2.5 % Normal 0-5 [facility] Comment on above: Performed By: #### L 501.4021, L500.2500, L100.0100 ####[facility] [address] [place], [address] Erythrocyte distribution width (RBC) [Ratio] 12.7 % Normal 11.6-14.6 [facility] Comment on above: Performed By: #### L 501.4021, L500.2500, L100.0100 ####[facility] [address] [place], [address] Hematocrit (Bld) [Volume fraction] 44.1 % Normal 40-54 [facility] Comment on above: Performed By: #### L 501.4021, L500.2500, L100.0100 ####[facility] [address] [place], [address] Hemoglobin (Bld) [Mass/Vol] 15.6 g/dL Normal 13.0-16.5 [facility] Comment on above: Performed By: #### L 501.4021, L500.2500, L100.0100 ####[facility] [address] [place], [address] IG% 0.100 Normal 0.0-0.9 [facility] Comment on above: Result Comment: IG% - Immature Granulocytes (promyelocytes, myelocytes andmetamyelocytes) > 1% indicates that a LEFT SHIFT is Present. Performed By: #### L 501.4021, L500.2500, L100.0100 ####[facility] [address] [place], [address] Lymphocytes/100 WBC (Bld) 37.4 % Normal 19-41 [facility] Comment on above: Performed By: #### L 501.4021, L500.2500, L100.0100 ####[facility] [address] [place], [address] MCH (RBC) [Entitic mass] 32.2 pg High 27.0-32.0 [facility] Comment on above: Performed By: #### L 501.4021, L500.2500, L100.0100 ####[facility] [address] [place], [address] MCHC (RBC) [Mass/Vol] 35.4 g/dL Normal 32-36 [facility] Comment on above: Performed By: #### L 501.4021, L500.2500, L100.0100 ####[facility] [address] [place], [address] MCV (RBC) [Entitic vol] 90.9 fL Normal 80-94 [facility] Comment on above: Performed By: #### L 501.4021, L500.2500, L100.0100 ####[facility] [address] [place], [address] Monocytes/100 WBC (Bld) 6.6 % Normal 0-10 [facility] Comment on above: Performed By: #### L 501.4021, L500.2500, L100.0100 ####[facility] [address] [place], [address] Neutrophils/100 WBC (Bld) 53.1 % Normal 47-70 [facility] Comment on above: Performed By: #### L 501.4021, L500.2500, L100.0100 ####[facility] [address] [place], [address] Nucleated RBC (Bld) [#/Vol] 0 10*3/uL Normal 0-5 [facility] Comment on above: Performed By: #### L 501.4021, L500.2500, L100.0100 ####[facility] [address] [place], [address] Platelet mean volume (Bld) [Entitic vol] 10.3 fL Normal 6.2-12.0 [facility] Comment on above: Performed By: #### L 501.4021, L500.2500, L100.0100 ####[facility] [address] [place], [address] Platelets (Bld) [#/Vol] 275 10*3/uL Normal 150-450 [facility] Comment on above: Performed By: #### L 501.4021, L500.2500, L100.0100 ####[facility] [address] [place], [address] RBC (Bld) [#/Vol] 4.85 10*6/uL Normal 4.6-6.2 [facility] Comment on above: Performed By: #### L 501.4021, L500.2500, L100.0100 ####[facility] [address] [place], [address] RDW SD 41.7 fl Normal 35.1-43.9 [facility] Comment on above: Performed By: #### L 501.4021, L500.2500, L100.0100 ####[facility] [address] [place], [address] WBC (Bld) [#/Vol] 7.5 10*3/uL Normal 4.4-11.0 [facility] Comment on above: Performed By: #### L 501.4021, L500.2500, L100.0100 ####[facility] [address] [place], [address] Carbon dioxide, total [Moles /volume] in Central venous bloodOrdered By: Lawson Castellon on 07-29-2024 CO2 [Moles/Vol] 19.8 mmol/L Low 21.0-32.0 [facility] Chest 1 View (Portable)on Chest 1 View (Portable) Normal [facility] Chloride assayOrdered By: Isael Castellon on 07-29-2024 Chloride [Moles/Vol] 99 mmol/L 98-108 [facility] Emergency Department Summary on 07-29-2024 Emergency [...] rate/Area] 74 mL/min/{1.73_m2} >60 [facility] Hematocrit Auto [...] By: #### L 499.0042 ####[facility] [address] [place], [address] L501.4021on 07-29-2024 Trop T High Sen 22 ng/L Normal <=22 [facility] Comment on above: Performed By: #### L 501.4021, L500.2500, L100.0100 ####[facility] [address] [place], [address] MCV (mean corpuscular volume ) determinationOrdered By: ED PROVIDER on 07-29-2024 MCV (RBC) [Entitic vol] 90.9 fL 80-94 [facility] Mean corpuscular hemoglobin (MCH) determinationOrdered By: ED PROVIDER on 07-29-2024 MCH (RBC) [Entitic mass] 32.2 pg High 27.0-32.0 [facility] Monocyte percentageOrdered B y: ED PROVIDER on 07-29-2024 Monocytes/100 WBC (Bld) 6.6 % 0-10 [facility] Neutrophil percentageOrdered By: ED PROVIDER on [...] 07-29-2024 RBC (Bld) [#/Vol] 4.85 10*6/uL 4.6-6.2 [facility] Serum creatinine measurement (mass/volume)Ordered By: Lawson Castlelon on 07-29-2024 Creatinine [Mass/Vol] 1.11 mg/dL 0.70-1.20 [facility] Serum glucose measurement (m ass/volume)Ordered By: Lawson Castellon on 07-29-2024 Glucose [Mass/Vol] 400 mg/dL High 70-99 [facility] Serum or plasma calcium brenda urement (mass/volume)Ordered By: Lawson Castellon on 07-29-2024 Calcium [Mass/Vol] 9.3 mg/dL 7.6-11.0 [facility] Serum or plasma urea nitroge n measurement (mass/volume)Ordered By: Lawson Castellon on 07-29-2024 Urea nitrogen [Mass/Vol] 23 mg/dL High 4-19 [facility] Sodium levelOrdered By: Lawson Castellon on 07-29-2024 Sodium [Moles/Vol] 134 mmol/L 133-145 [facility] Troponin T.cardiac [Mass/vol ume] in Serum or Plasma by High sensitivity methodOrdered By: Lawson Castellon on 07-29-2024 Troponin T.cardiac High sensitivity method [Mass/Vol] 27 ng/L High <22 [facility] Troponin T.cardiac High sensitivity method [Mass/Vol] 22 ng/L <22 [facility] White blood cell (WBC) count Ordered By: ED PROVIDER on 07-29-2024 WBC (Bld) [#/Vol] 7.5 10*3/uL 4.4-11.0 [facility] MR/BMS.BVSon 07-14-2024 MR/BMS.BVS Normal [facility] Cardiology Visit Reporton Cardiology Visit Report Normal [facility] Basic Metabolic Profile (BMP )on 06-26-2024 BUN Normal 4-19 [facility] Comment on above: Result Comment: Canc elled via OM: Order cancelled - Patient discharged Performed By: #### L 500.2500, L100.0500 ####[facility] [address] [place], [address] BUN/CRE Normal 10-20 [facility] Comment on above: Result Comment: Canc elled via OM: Order cancelled - Patient discharged Performed By: #### L 500.2500, L100.0500 ####[facility] [address] [place], [address] Calcium Normal 7.6-11.0 [facility] Comment on above: Result Comment: Canc elled via OM: Order cancelled - Patient discharged Performed By: #### L 500.2500, L100.0500 ####[facility] [address] [place], [address] CL Normal 98-108 [facility] Comment on above: Result Comment: Canc elled via OM: Order cancelled - Patient discharged Performed By: #### L 500.2500, L100.0500 ####[facility] [address] [place], [address] CO2 Normal 21.0-32.0 [facility] Comment on above: Result Comment: Canc elled via OM: Order cancelled - Patient discharged Performed By: #### L 500.2500, L100.0500 ####[facility] [address] [place], [address] CREAT,SERUM Normal 0.70-1.20 [facility] Comment on above: Result Comment: Canc elled via OM: Order cancelled - Patient discharged Performed By: #### L 500.2500, L100.0500 ####[facility] [address] [place], [address] eGFR Normal >60 [facility] Comment on above: Result Comment: Canc elled via OM: Order cancelled - Patient discharged Performed By: #### L 500.2500, L100.0500 ####[facility] [address] [place], [address] GAP Normal 5-15 [facility] Comment on above: Result Comment: Canc elled via OM: Order cancelled - Patient discharged Performed By: #### L 500.2500, L100.0500 ####[facility] [address] [place], [address] GLU Normal 70-99 [facility] Comment on above: Result Comment: Canc elled via OM: Order cancelled - Patient discharged Performed By: #### L 500.2500, L100.0500 ####[facility] [address] [place], [address] Potassium Normal 3.3-5.1 [facility] Comment on above: Result Comment: Canc elled via OM: Order cancelled - Patient discharged Performed By: #### L 500.2500, L100.0500 ####[facility] [address] [place], [address] Basic Metabolic Profile (BMP) Normal 133-145 [facility] Comment on above: Result Comment: Canc elled via OM: Order cancelled - Patient discharged Performed By: #### L 500.2500, L100.0500 ####[facility] [address] [place], [address] CBC-Complete Blood Cnt No Di ffon 06-26-2024 HCT Normal 40-54 [facility] Comment on above: Result Comment: Canc elled via OM: Order cancelled - Patient discharged Performed By: #### L 500.2500, L100.0500 ####[facility] [address] [place], [address] HGB Normal 13.0-16.5 [facility] Comment on above: Result Comment: Canc elled via OM: Order cancelled - Patient discharged Performed By: #### L 500.2500, L100.0500 ####[facility] [address] [place], [address] MCH Normal 27.0-32.0 [facility] Comment on above: Result Comment: Canc elled via OM: Order cancelled - Patient discharged Performed By: #### L 500.2500, L100.0500 ####[facility] [address] [place], [address] MCHC Normal 32-36 [facility] Comment on above: Result Comment: Canc elled via OM: Order cancelled - Patient discharged Performed By: #### L 500.2500, L100.0500 ####[facility] [address] [place], [address] MCV Normal 80-94 [facility] Comment on above: Result Comment: Canc elled via OM: Order cancelled - Patient discharged Performed By: #### L 500.2500, L100.0500 ####[facility] [address] [place], [address] PLT Normal 150-450 [facility] Comment on above: Result Comment: Canc elled via OM: Order cancelled - Patient discharged Performed By: #### L 500.2500, L100.0500 ####[facility] [address] [place], [address] RBC Normal 4.6-6.2 [facility] Comment on above: Result Comment: Canc elled via OM: Order cancelled - Patient discharged Performed By: #### L 500.2500, L100.0500 ####[facility] [address] [place], [address] RDW CV Normal 11.6-14.6 [facility] Comment on above: Result Comment: Canc elled via OM: Order cancelled - Patient discharged Performed By: #### L 500.2500, L100.0500 ####[facility] [address] [place], [address] RDW SD Normal 35.1-43.9 [facility] Comment on above: Result Comment: Canc elled via OM: Order cancelled - Patient discharged Performed By: #### L 500.2500, L100.0500 ####[facility] [address] [place], [address] WBC Normal 4.4-11.0 [facility] Comment on above: Result Comment: Canc elled via OM: Order cancelled - Patient discharged Performed By: #### L 500.2500, L100.0500 ####[facility] [address] [place], [address] Basic Metabolic Profile (BMP )on 06-25-2024 BUN Normal 4-19 [facility] Comment on above: Result Comment: Canc elled via OM: Order cancelled - Patient discharged Performed By: #### L 500.2500, L100.0500 ####[facility] [address] [place], [address] BUN/CRE Normal 10-20 [facility] Comment on above: Result Comment: Canc elled via OM: Order cancelled - Patient discharged Performed By: #### L 500.2500, L100.0500 ####[facility] [address] [place], [address] Calcium Normal 7.6-11.0 [facility] Comment on above: Result Comment: Canc elled via OM: Order cancelled - Patient discharged Performed By: #### L 500.2500, L100.0500 ####[place] [facility] [address] [place], [address] CL Normal 98-108 [facility] Comment on above: Result Comment: Canc elled via OM: Order cancelled - Patient discharged Performed By: #### L 500.2500, L100.0500 ####[facility] [address] [place], [address] CO2 Normal 21.0-32.0 [facility] Comment on above: Result Comment: Canc elled via OM: Order cancelled - Patient discharged Performed By: #### L 500.2500, L100.0500 ####[facility] [address] [place], [address] CREAT,SERUM Normal 0.70-1.20 [facility] Comment on above: Result Comment: Canc elled via OM: Order cancelled - Patient discharged Performed By: #### L 500.2500, L100.0500 ####[facility] [address] [place], [address] eGFR Normal >60 [facility] Comment on above: Result Comment: Canc elled via OM: Order cancelled - Patient discharged Performed By: #### L 500.2500, L100.0500 ####[facility] [address] [place], [address] GAP Normal 5-15 [facility] Comment on above: Result Comment: Canc elled via OM: Order cancelled - Patient discharged Performed By: #### L 500.2500, L100.0500 ####[facility] [address] [place], [address] GLU Normal 70-99 [facility] Comment on above: Result Comment: Canc elled via OM: Order cancelled - Patient discharged Performed By: #### L 500.2500, L100.0500 ####[facility] [address] [place], [address] Potassium Normal 3.3-5.1 [facility] Comment on above: Result Comment: Canc elled via OM: Order cancelled - Patient discharged Performed By: #### L 500.2500, L100.0500 ####[facility] [address], [address] Basic Metabolic Profile (BMP) Normal 133-145 [facility] Comment on above: Result Comment: Canc elled via OM: Order cancelled - Patient discharged Performed By: #### L 500.2500, L100.0500 ####[facility] [address] [place], [address] CBC-Complete Blood Cnt No Di ffon 06-25-2024 HCT Normal 40-54 [facility] Comment on above: Result Comment: Canc elled via OM: Order cancelled - Patient discharged Performed By: #### L 500.2500, L100.0500 ####[facility] [address] [place], [address] HGB Normal 13.0-16.5 [facility] Comment on above: Result Comment: Canc elled via OM: Order cancelled - Patient discharged Performed By: #### L 500.2500, L100.0500 ####[facility] [address] [place], [address] MCH Normal 27.0-32.0 [facility] Comment on above: Result Comment: Canc elled via OM: Order cancelled - Patient discharged Performed By: #### L 500.2500, L100.0500 ####[facility] [address], [address] MCHC Normal 32-36 [facility] Comment on above: Result Comment: Canc elled via OM: Order cancelled - Patient discharged Performed By: #### L 500.2500, L100.0500 ####[facility] [address], [address] MCV Normal 80-94 [facility] Comment on above: Result Comment: Canc elled via OM: Order cancelled - Patient discharged Performed By: #### L 500.2500, L100.0500 ####[facility] [address] [place], [address] PLT Normal 150-450 [facility] Comment on above: Result Comment: Canc elled via OM: Order cancelled - Patient discharged Performed By: #### L 500.2500, L100.0500 ####[facility] [address] [place], [address] RBC Normal 4.6-6.2 [facility] Comment on above: Result Comment: Canc elled via OM: Order cancelled - Patient discharged Performed By: #### L 500.2500, L100.0500 ####[facility] [address] [place], [address] RDW CV Normal 11.6-14.6 [facility] Comment on above: Result Comment: Canc elled via OM: Order cancelled - Patient discharged Performed By: #### L 500.2500, L100.0500 ####[facility] [address] [place], [address] RDW SD Normal 35.1-43.9 [facility] Comment on above: Result Comment: Canc elled via OM: Order cancelled - Patient discharged Performed By: #### L 500.2500, L100.0500 ####[facility] [address] [place], [address] WBC Normal 4.4-11.0 [facility] Comment on above: Result Comment: Canc elled via OM: Order cancelled - Patient discharged Performed By: #### L 500.2500, L100.0500 ####[facility] [address] [place], [address] Basic Metabolic Profile (BMP )on 06-24-2024 BUN Normal 4-19 [facility] Comment on above: Result Comment: Canc elled via OM: Order cancelled - Patient discharged Performed By: #### L 500.2500, L100.0500 ####[facility] [address] [place], [address] BUN/CRE Normal 10-20 [facility] Comment on above: Result Comment: Canc elled via OM: Order cancelled - Patient discharged Performed By: #### L 500.2500, L100.0500 ####[facility] [address] [place], [address] Calcium Normal 7.6-11.0 [facility] Comment on above: Result Comment: Canc elled via OM: Order cancelled - Patient discharged Performed By: #### L 500.2500, L100.0500 ####[facility] [address] [place], [address] CL Normal 98-108 [facility] Comment on above: Result Comment: Canc elled via OM: Order cancelled - Patient discharged Performed By: #### L 500.2500, L100.0500 ####[facility] [address] [place], [address] CO2 Normal 21.0-32.0 [facility] Comment on above: Result Comment: Canc elled via OM: Order cancelled - Patient discharged Performed By: #### L 500.2500, L100.0500 ####[facility] [address] [place], [address] CREAT,SERUM Normal 0.70-1.20 [facility] Comment on above: Result Comment: Canc elled via OM: Order cancelled - Patient discharged Performed By: #### L 500.2500, L100.0500 ####[facility] [address] [place], [address] eGFR Normal >60 [facility] Comment on above: Result Comment: Canc elled via OM: Order cancelled - Patient discharged Performed By: #### L 500.2500, L100.0500 ####[facility] [address], [address] GAP Normal 5-15 [facility] Comment on above: Result Comment: Canc elled via OM: Order cancelled - Patient discharged Performed By: #### L 500.2500, L100.0500 ####[facility] [address] [place], [address] GLU Normal 70-99 [facility] Comment on above: Result Comment: Canc elled via OM: Order cancelled - Patient discharged Performed By: #### L 500.2500, L100.0500 ####[facility] [address] [place], [address] Potassium Normal 3.3-5.1 [facility] Comment on above: Result Comment: Canc elled via OM: Order cancelled - Patient discharged Performed By: #### L 500.2500, L100.0500 ####[facility] [address] [place], [address] Basic Metabolic Profile (BMP) Normal 133-145 [facility] Comment on above: Result Comment: Canc elled via OM: Order cancelled - Patient discharged Performed By: #### L 500.2500, L100.0500 ####[facility] [address] [place], [address] CBC-Complete Blood Cnt No Di ffon 06-24-2024 HCT Normal 40-54 [facility] Comment on above: Result Comment: Canc elled via OM: Order cancelled - Patient discharged Performed By: #### L 500.2500, L100.0500 ####[facility] [address] [place], [address] HGB Normal 13.0-16.5 [facility] Comment on above: Result Comment: Canc elled via OM: Order cancelled - Patient discharged Performed By: #### L 500.2500, L100.0500 ####[facility] [address] [place], [address] MCH Normal 27.0-32.0 [facility] Comment on above: Result Comment: Canc elled via OM: Order cancelled - Patient discharged Performed By: #### L 500.2500, L100.0500 ####[facility] [address], [address] MCHC Normal 32-36 [facility] Comment on above: Result Comment: Canc elled via OM: Order cancelled - Patient discharged Performed By: #### L 500.2500, L100.0500 ####[facility] [address] [place], [address] MCV Normal 80-94 [facility] Comment on above: Result Comment: Canc elled via OM: Order cancelled - Patient discharged Performed By: #### L 500.2500, L100.0500 ####[facility] [address] [place], [address] PLT Normal 150-450 [facility] Comment on above: Result Comment: Canc elled via OM: Order cancelled - Patient discharged Performed By: #### L 500.2500, L100.0500 ####[facility] [address] [place], [address] RBC Normal 4.6-6.2 [facility] Comment on above: Result Comment: Canc elled via OM: Order cancelled - Patient discharged Performed By: #### L 500.2500, L100.0500 ####[facility] [address] [place], [address] RDW CV Normal 11.6-14.6 [facility] Comment on above: Result Comment: Canc elled via OM: Order cancelled - Patient discharged Performed By: #### L 500.2500, L100.0500 ####[facility] [address] [place] [place], [address] RDW SD Normal 35.1-43.9 [facility] Comment on above: Result Comment: Canc elled via OM: Order cancelled - Patient discharged Performed By: #### L 500.2500, L100.0500 ####[facility] [address] [place], [address] WBC Normal 4.4-11.0 [facility] Comment on above: Result Comment: Canc elled via OM: Order cancelled - Patient discharged Performed By: #### L 500.2500, L100.0500 ####[facility] [address] [place], [address] Basic Metabolic Profile (BMP )on 06-23-2024 BUN Normal 4-19 [facility] Comment on above: Result Comment: Canc elled via OM: Order cancelled - Patient discharged Performed By: #### L 100.0500, L500.2500 ####[facility] [address] [place], [address] BUN/CRE Normal 10-20 [facility] Comment on above: Result Comment: Canc elled via OM: Order cancelled - Patient discharged Performed By: #### L 100.0500, L500.2500 ####[facility] [address] [place], [address] Calcium Normal 7.6-11.0 [facility] Comment on above: Result Comment: Canc elled via OM: Order cancelled - Patient discharged Performed By: #### L 100.0500, L500.2500 ####[facility] [address] [place], [address] CL Normal 98-108 [facility] Comment on above: Result Comment: Canc elled via OM: Order cancelled - Patient discharged Performed By: #### L 100.0500, L500.2500 ####[facility] [address] [place], [address] CO2 Normal 21.0-32.0 [facility] Comment on above: Result Comment: Canc elled via OM: Order cancelled - Patient discharged Performed By: #### L 100.0500, L500.2500 ####[facility] [address] [place], [address] CREAT,SERUM Normal 0.70-1.20 [facility] Comment on above: Result Comment: Canc elled via OM: Order cancelled - Patient discharged Performed By: #### L 100.0500, L500.2500 ####[facility] [address] [place], [address] eGFR Normal >60 [facility] Comment on above: Result Comment: Canc elled via OM: Order cancelled - Patient discharged Performed By: #### L 100.0500, L500.2500 ####[facility] [address] [place], [address] GAP Normal 5-15 [facility] Comment on above: Result Comment: Canc elled via OM: Order cancelled - Patient discharged Performed By: #### L 100.0500, L500.2500 ####[facility] [address] [place], [address] GLU Normal 70-99 [facility] Comment on above: Result Comment: Canc elled via OM: Order cancelled - Patient discharged Performed By: #### L 100.0500, L500.2500 ####[facility] [address] [place], [address] Potassium Normal 3.3-5.1 [facility] Comment on above: Result Comment: Canc elled via OM: Order cancelled - Patient discharged Performed By: #### L 100.0500, L500.2500 ####[facility] [address] [place], [address] Basic Metabolic Profile (BMP) Normal 133-145 [facility] Comment on above: Result Comment: Canc elled via OM: Order cancelled - Patient discharged Performed By: #### L 100.0500, L500.2500 ####[facility] [address] [place], [address] CBC-Complete Blood Cnt No Di ffon 06-23-2024 HCT Normal 40-54 [facility] Comment on above: Result Comment: Canc elled via OM: Order cancelled - Patient discharged Performed By: #### L 100.0500, L500.2500 ####[facility] [address] [place], [address] HGB Normal 13.0-16.5 [facility] Comment on above: Result Comment: Canc elled via OM: Order cancelled - Patient discharged Performed By: #### L 100.0500, L500.2500 ####[facility] [address] [place], [address] MCH Normal 27.0-32.0 [facility] Comment on above: Result Comment: Canc elled via OM: Order cancelled - Patient discharged Performed By: #### L 100.0500, L500.2500 ####[facility] [address] [place], [address] MCHC Normal 32-36 [facility] Comment on above: Result Comment: Canc elled via OM: Order cancelled - Patient discharged Performed By: #### L 100.0500, L500.2500 ####[facility] [address] [place], [address] MCV Normal 80-94 [facility] Comment on above: Result Comment: Canc elled via OM: Order cancelled - Patient discharged Performed By: #### L 100.0500, L500.2500 ####[facility] [address] [place], [address] PLT Normal 150-450 [facility] Comment on above: Result Comment: Canc elled via OM: Order cancelled - Patient discharged Performed By: #### L 100.0500, L500.2500 ####[facility] [address] [place], [address] RBC Normal 4.6-6.2 [facility] Comment on above: Result Comment: Canc elled via OM: Order cancelled - Patient discharged Performed By: #### L 100.0500, L500.2500 ####[facility] [address] [place], [address] RDW CV Normal 11.6-14.6 [facility] Comment on above: Result Comment: Canc elled via OM: Order cancelled - Patient discharged Performed By: #### L 100.0500, L500.2500 ####[facility] [address] [place], [address] RDW SD Normal 35.1-43.9 [facility] Comment on above: Result Comment: Canc elled via OM: Order cancelled - Patient discharged Performed By: #### L 100.0500, L500.2500 ####[facility] [address] [place], [address] WBC Normal 4.4-11.0 [facility] Comment on above: Result Comment: Canc elled via OM: Order cancelled - Patient discharged Performed By: #### L 100.0500, L500.2500 ####[facility] [address] [place], [address] Basic Metabolic Profile (BMP )on 06-22-2024 BUN Normal -19 [facility] Comment on above: Result Comment: Canc elled via OM: Order cancelled - Patient discharged Performed By: #### L 100.0500, L500.2500 ####[facility] [address] [place], [address] BUN/CRE Normal 10-20 [facility] Comment on above: Result Comment: Canc elled via OM: Order cancelled - Patient discharged Performed By: #### L 100.0500, L500.2500 ####[facility] [address] [place], [address] Calcium Normal 7.6-11.0 [facility] Comment on above: Result Comment: Canc elled via OM: Order cancelled - Patient discharged Performed By: #### L 100.0500, L500.2500 ####[facility] [address] [place], [address] CL Normal 98-108 [facility] Comment on above: Result Comment: Canc elled via OM: Order cancelled - Patient discharged Performed By: #### L 100.0500, L500.2500 ####[facility] [address] [place], [address] CO2 Normal 21.0-32.0 [facility] Comment on above: Result Comment: Canc elled via OM: Order cancelled - Patient discharged Performed By: #### L 100.0500, L500.2500 ####[facility] [address] [place], [address] CREAT,SERUM Normal 0.70-1.20 [facility] Comment on above: Result Comment: Canc elled via OM: Order cancelled - Patient discharged Performed By: #### L 100.0500, L500.2500 ####[facility] [address] [place], [address] eGFR Normal >60 [facility] Comment on above: Result Comment: Canc elled via OM: Order cancelled - Patient discharged Performed By: #### L 100.0500, L500.2500 ####[facility] [address] [place], [address] GAP Normal 5-15 [facility] Comment on above: Result Comment: Canc elled via OM: Order cancelled - Patient discharged Performed By: #### L 100.0500, L500.2500 ####[facility] [address] [place], [address] GLU Normal 70-99 [facility] Comment on above: Result Comment: Canc elled via OM: Order cancelled - Patient discharged Performed By: #### L 100.0500, L500.2500 ####[facility] [address] [place], [address] Potassium Normal 3.3-5.1 [facility] Comment on above: Result Comment: Canc elled via OM: Order cancelled - Patient discharged Performed By: #### L 100.0500, L500.2500 ####[facility] [address] [place], [address] Basic Metabolic Profile (BMP) Normal 133-145 [facility] Comment on above: Result Comment: Canc elled via OM: Order cancelled - Patient discharged Performed By: #### L 100.0500, L500.2500 ####[facility] [address] [place], [address] CBC-Complete Blood Cnt No Di ffon 06-22-2024 HCT Normal 40-54 [facility] Comment on above: Result Comment: Canc elled via OM: Order cancelled - Patient discharged Performed By: #### L 100.0500, L500.2500 ####[facility] [address] [place], [address] HGB Normal 13.0-16.5 [facility] Comment on above: Result Comment: Canc elled via OM: Order cancelled - Patient discharged Performed By: #### L 100.0500, L500.2500 ####[facility] [address] [place], [address] MCH Normal 27.0-32.0 [facility] Comment on above: Result Comment: Canc elled via OM: Order cancelled - Patient discharged Performed By: #### L 100.0500, L500.2500 ####[facility] [address] [place], [address] MCHC Normal 32-36 [facility] Comment on above: Result Comment: Canc elled via OM: Order cancelled - Patient discharged Performed By: #### L 100.0500, L500.2500 ####[facility] [address] [place], [address] MCV Normal 80-94 [facility] Comment on above: Result Comment: Canc elled via OM: Order cancelled - Patient discharged Performed By: #### L 100.0500, L500.2500 ####[facility] [address] [place], [address] PLT Normal 150-450 [facility] Comment on above: Result Comment: Canc elled via OM: Order cancelled - Patient discharged Performed By: #### L 100.0500, L500.2500 ####[facility] [address] [place], [address] RBC Normal 4.6-6.2 [facility] Comment on above: Result Comment: Canc elled via OM: Order cancelled - Patient discharged Performed By: #### L 100.0500, L500.2500 ####[facility] [address] [place], [address] RDW CV Normal 11.6-14.6 [facility] Comment on above: Result Comment: Canc elled via OM: Order cancelled - Patient discharged Performed By: #### L 100.0500, L500.2500 ####[facility] [address] [place], [address] RDW SD Normal 35.1-43.9 [facility] Comment on above: Result Comment: Canc elled via OM: Order cancelled - Patient discharged Performed By: #### L 100.0500, L500.2500 ####[facility] [address] [place], [address] WBC Normal 4.4-11.0 [facility] Comment on above: Result Comment: Canc elled via OM: Order cancelled - Patient discharged Performed By: #### L 100.0500, L500.2500 ####[facility] [address] [place], [address] Basic Metabolic Profile (BMP )on 06-21-2024 BUN Normal 4-19 [facility] Comment on above: Result Comment: Canc elled via OM: Order cancelled - Patient discharged Performed By: #### L 500.2500, L100.0500 ####[facility] [address] [place], [address] BUN/CRE Normal 10-20 [facility] Comment on above: Result Comment: Canc elled via OM: Order cancelled - Patient discharged Performed By: #### L 500.2500, L100.0500 ####[facility] [address] [place], [address] Calcium Normal 7.6-11.0 [facility] Comment on above: Result Comment: Canc elled via OM: Order cancelled - Patient discharged Performed By: #### L 500.2500, L100.0500 ####[facility] [address] [place], [address] CL Normal 98-108 [facility] Comment on above: Result Comment: Canc elled via OM: Order cancelled - Patient discharged Performed By: #### L 500.2500, L100.0500 ####[facility] [address] [place], [address] CO2 Normal 21.0-32.0 [facility] Comment on above: Result Comment: Canc elled via OM: Order cancelled - Patient discharged Performed By: #### L 500.2500, L100.0500 ####[facility] [address], [address] CREAT,SERUM Normal 0.70-1.20 [facility] Comment on above: Result Comment: Canc elled via OM: Order cancelled - Patient discharged Performed By: #### L 500.2500, L100.0500 ####[facility] [address] [place], [address] eGFR Normal >60 [facility] Comment on above: Result Comment: Canc elled via OM: Order cancelled - Patient discharged Performed By: #### L 500.2500, L100.0500 ####[facility] [address] [place], [address] GAP Normal 5-15 [facility] Comment on above: Result Comment: Canc elled via OM: Order cancelled - Patient discharged Performed By: #### L 500.2500, L100.0500 ####[facility] [address] [place], [address] GLU Normal 70-99 [facility] Comment on above: Result Comment: Canc elled via OM: Order cancelled - Patient discharged Performed By: #### L 500.2500, L100.0500 ####[facility] [address] [place], [address] Potassium Normal 3.3-5.1 [facility] Comment on above: Result Comment: Canc elled via OM: Order cancelled - Patient discharged Performed By: #### L 500.2500, L100.0500 ####[facility] [address] [place], [address] Basic Metabolic Profile (BMP) Normal 133-145 [facility] Comment on above: Result Comment: Canc elled via OM: Order cancelled - Patient discharged Performed By: #### L 500.2500, L100.0500 ####[facility] [address] [place], [address] CBC-Complete Blood Cnt No Di ffon 06-21-2024 HCT Normal 40-54 [facility] Comment on above: Result Comment: Canc elled via OM: Order cancelled - Patient discharged Performed By: #### L 500.2500, L100.0500 ####[facility] [address] [place], [address] HGB Normal 13.0-16.5 [facility] Comment on above: Result Comment: Canc elled via OM: Order cancelled - Patient discharged Performed By: #### L 500.2500, L100.0500 ####[facility] [address] [place], [address] MCH Normal 27.0-32.0 [facility] Comment on above: Result Comment: Canc elled via OM: Order cancelled - Patient discharged Performed By: #### L 500.2500, L100.0500 ####[facility] [address] [place], [address] MCHC Normal 32-36 [facility] Comment on above: Result Comment: Canc elled via OM: Order cancelled - Patient discharged Performed By: #### L 500.2500, L100.0500 ####[facility] [address] [place], [address] MCV Normal 80-94 [facility] Comment on above: Result Comment: Canc elled via OM: Order cancelled - Patient discharged Performed By: #### L 500.2500, L100.0500 ####[facility] [address] [place], [address] PLT Normal 150-450 [facility] Comment on above: Result Comment: Canc elled via OM: Order cancelled - Patient discharged Performed By: #### L 500.2500, L100.0500 ####[facility] [address] [place], [address] RBC Normal 4.6-6.2 [facility] Comment on above: Result Comment: Canc elled via OM: Order cancelled - Patient discharged Performed By: #### L 500.2500, L100.0500 ####[facility] [address] [place], [address] RDW CV Normal 11.6-14.6 [facility] Comment on above: Result Comment: Canc elled via OM: Order cancelled - Patient discharged Performed By: #### L 500.2500, L100.0500 ####[facility] [address] [place], [address] RDW SD Normal 35.1-43.9 [facility] Comment on above: Result Comment: Canc elled via OM: Order cancelled - Patient discharged Performed By: #### L 500.2500, L100.0500 ####[facility] [address] [place], [address] WBC Normal 4.4-11.0 [facility] Comment on above: Result Comment: Canc elled via OM: Order cancelled - Patient discharged Performed By: #### L 500.2500, L100.0500 ####[facility] [address] [place], [address] Anion gap in Serum or Plasma Ordered By: oDnna Wolff on 06-20-2024 Anion gap [Moles/Vol] 14 mmol/L 5-15 [facility] BUN/creatinine ratioOrdered By: Donna Wolff on 06-20-2024 Urea nitrogen/Creatinine [Mass ratio] 27.2 mg/mg High 10-20 [facility] Basic Metabolic Profile (BMP )on 06-20-2024 BUN/CRE 27.2 RATIO High -20 [facility] Comment on above: Performed By: #### L 500.2500, L100.0500 ####[facility] [address] [place], [address] Calcium [Mass/Vol] 9.5 mg/dL Normal 7.6-11.0 [facility] Comment on above: Performed By: #### L 500.2500, L100.0500 ####[facility] [address] [place], [address] Chloride [Moles/Vol] 100 mmol/L Normal 98-108 [facility] Comment on above: Performed By: #### L 500.2500, L100.0500 ####[facility] [address] [place], [address] CO2 [Moles/Vol] 24.8 mmol/L Normal 21.0-32.0 [facility] Comment on above: Performed By: #### L 500.2500, L100.0500 ####[facility] [address] [place], [address] Creatinine [Mass/Vol] 1.07 mg/dL Normal 0.70-1.20 [facility] Comment on above: Performed By: #### L 500.2500, L100.0500 ####[facility] [address] [place], [address] ECRCL 74.28 ml/min Normal 50-250 [facility] Comment on above: Performed By: #### L 500.2500, L100.0500 ####[facility] [address] [place], [address] GAP 14 Normal 5-15 [facility] Comment on above: Performed By: #### L 500.2500, L100.0500 ####[facility] [address] [place], [address] GFR/1.73 sq M.predicted among non-blacks MDRD (S/P/Bld) [Vol rate/Area] 77 mL/min/{1.73_m2} Normal >60 [facility] Comment on above: Result Comment: mL/m in/1.73m2 CKD-EPI Creatinine Equation (2020) Performed By: #### L 500.2500, L100.0500 ####[facility] [address] [place], [address] Glucose [Mass/Vol] 110 mg/dL High 70-99 [facility] Comment on above: Performed By: #### L 500.2500, L100.0500 ####[facility] [address] [place], [address] Potassium [Moles/Vol] 3.8 mmol/L Normal 3.3-5.1 [facility] Comment on above: Performed By: #### L 500.2500, L100.0500 ####[facility] [address] [place], [address] Sodium [Moles/Vol] 138 mmol/L Normal 133-145 [facility] Comment on above: Performed By: #### L 500.2500, L100.0500 ####[facility] [address] [place], [address] Urea nitrogen [Mass/Vol] 29 mg/dL High 4-19 [facility] Comment on above: Performed By: #### L 500.2500, L100.0500 ####[facility] [address] [place], [address] Bedside Glucoseon 06-20-2024 FINGERSTICK GLU 127 mg/dL High 74-106 [facility] Comment on above: Result Comment: SNEHA DUNCAN OF PATIENT CARE PER NURSING PROTOCOL Performed By: #### L 501.080 ####[facility] [address] [place], [address] CBC-Complete Blood Cnt No Di ffon 06-20-2024 Erythrocyte distribution width (RBC) [Ratio] 13.0 % Normal 11.6-14.6 [facility] Comment on above: Performed By: #### L 500.2500, L100.0500 ####[facility] [address] [place], [address] Hematocrit (Bld) [Volume fraction] 50.5 % Normal 40-54 [facility] Comment on above: Performed By: #### L 500.2500, L100.0500 ####[facility] [address] [place], [address] Hemoglobin (Bld) [Mass/Vol] 16.8 g/dL High 13.0-16.5 [facility] Comment on above: Performed By: #### L 500.2500, L100.0500 ####[facility] [address] [place], [address] MCH (RBC) [Entitic mass] 30.8 pg Normal 27.0-32.0 [facility] Comment on above: Performed By: #### L 500.2500, L100.0500 ####[facility] [address] [place], [address] MCHC (RBC) [Mass/Vol] 33.3 g/dL Normal 32-36 [facility] Comment on above: Performed By: #### L 500.2500, L100.0500 ####[facility] [address] [place], [address] MCV (RBC) [Entitic vol] 92.5 fL Normal 80-94 [facility] Comment on above: Performed By: #### L 500.2500, L100.0500 ####[facility] [address] [place], [address] Platelet mean volume (Bld) [Entitic vol] 10.1 fL Normal 6.2-12.0 [facility] Comment on above: Performed By: #### L 500.2500, L100.0500 ####[facility] [address] [place], [address] Platelets (Bld) [#/Vol] 295 10*3/uL Normal 150-450 [facility] Comment on above: Performed By: #### L 500.2500, L100.0500 ####[facility] [address] [place], [address] RBC (Bld) [#/Vol] 5.46 10*6/uL Normal 4.6-6.2 [facility] Comment on above: Performed By: #### L 500.2500, L100.0500 ####[facility] [address] [place], [address] RDW SD 43.8 fl Normal 35.1-43.9 [facility] Comment on above: Performed By: #### L 500.2500, L100.0500 ####[facility] [address] [place], [address] WBC (Bld) [#/Vol] 14.2 10*3/uL High 4.4-11.0 [facility] Comment on above: Performed By: #### L 500.2500, L100.0500 ####[facility] [address] [place], [address] Carbon dioxide, total [Moles /volume] in Central venous bloodOrdered By: Donna Wolff on 06-20-2024 CO2 [Moles/Vol] 24.8 mmol/L 21.0-32.0 [facility] Chloride assayOrdered By: Nilson Wolff on 06-20-2024 Chloride [Moles/Vol] 100 mmol/L 98-108 [facility] Discharge Instructionon 06-04 Discharge Instruction Normal [facility] Erythrocyte distribution wid th ratioOrdered By: Donna [...] >60 [facility] By: Donna Wolff on 06-20-2024 Glucose [Mass/Vol] 127 mg/dL High 74-106 [facility] Hematocrit Auto (Bld) [Volum e fraction]Ordered By: Donna Wolff on 06-20-2024 Hematocrit (Bld) [Volume fraction] 50.5 % 40-54 [facility] Hemoglobin measurementOrdere d By: Donna Wolff on 06-20-2024 Hemoglobin (Bld) [Mass/Vol] 16.8 g/dL High 13.0-16.5 [facility] MCV (mean corpuscular volume ) determinationOrdered By: Donna Wolff on 06-20-2024 MCV (RBC) [Entitic vol] 92.5 fL 80-94 [facility] Mean corpuscular hemoglobin (MCH) determinationOrdered By: [...] 06-20-2024 RBC (Bld) [#/Vol] 5.46 10*6/uL 4.6-6.2 [facility] Serum creatinine measurement (mass/volume)Ordered By: Donna Wolff on 06-20-2024 Creatinine [Mass/Vol] 1.07 mg/dL 0.70-1.20 [facility] Serum glucose measurement (m ass/volume)Ordered By: Donna Wolff on 06-20-2024 Glucose [Mass/Vol] 110 mg/dL High 70-99 [facility] Serum or plasma calcium brenda urement (mass/volume)Ordered By: Donna Wolff on 06-20-2024 Calcium [Mass/Vol] 9.5 mg/dL 7.6-11.0 [facility] Serum or plasma urea nitroge n measurement (mass/volume)Ordered By: Donna Wolff on 06-20-2024 Urea nitrogen [Mass/Vol] 29 mg/dL High 4-19 [facility] Sodium levelOrdered By: Gretta Wolff on 06-20-2024 Sodium [Moles/Vol] 138 mmol/L 133-145 [facility] Stress Reporton 06-20-2024 Stress Report Normal [facility] White blood cell (WBC) count Ordered By: Donna Wolff on 06-20-2024 WBC (Bld) [#/Vol] 14.2 10*3/uL High 4.4-11.0 [facility] Absolute lymphocyte countOrd ered By: Steve Donald on 06-19-2024 Lymphocytes Auto (Unsp spec) [#/Vol] 1.12 10*3/uL 0.83-4.51 [facility] Automated lymphocyte count a s percentage of total leukocytesOrdered By: Steve Donald on 06-19-2024 Lymphocytes/100 WBC Auto (Unsp spec) 9.8 % Low 19-41 [facility] Basophil percentageOrdered B y: Steve Donald on 06-19-2024 Basophils/100 WBC (Bld) 0.1 % 0-1 [facility] Bedside Glucoseon 06-19-2024 FINGERSTICK GLU 220 mg/dL High 74-106 [facility] Comment on above: Result Comment: SNEHA GEMENT OF PATIENT CARE PER NURSING PROTOCOL Performed By: #### L 501.080 ####[facility] [address] [facility] [address] FINGERSTICK GLU 431 mg/dL High 74-106 [facility] Comment on above: Result Comment: SNEHA GEMENT OF PATIENT CARE PER NURSING PROTOCOL Performed By: #### L 501.080 ####[facility] [address] [place], [address] FINGERSTICK GLU 387 mg/dL High 74-106 [facility] Comment on above: Result Comment: SNEHA GEMENT OF PATIENT CARE PER NURSING PROTOCOL Performed By: #### L 501.080 ####[facility] [address] [place], [address] FINGERSTICK GLU 292 mg/dL High 74-106 [facility] Comment on above: Result Comment: SNEHA DUNCAN OF PATIENT CARE PER NURSING PROTOCOL Performed By: #### L 501.080 ####[facility] [address] [place], [address] Bilirubin, totalOrdered By: Steve Donald on 06-19-2024 Bilirubin [Mass/Vol] 0.63 mg/dL 0.00-1.30 [facility] CBC W/Diff, Automatedon 06-04 Absolute Lymph 1.12 X10 3/uL Normal 0.83-4.51 [facility] Comment on above: Performed By: #### L 500.4050, L501.2300, L501.9985, L100.0100 ####[facility] [address] [place], [address] Absolute Neut 9.8 X10 3/uL High 2.0-7.7 [facility] Comment on above: Performed By: #### L 500.4050, L501.2300, L501.9985, L100.0100 ####[facility] [address] [place], [address] Basophils/100 WBC (Bld) 0.1 % Normal 0-1 [facility] Comment on above: Performed By: #### L 500.4050, L501.2300, L501.9985, L100.0100 ####[facility] [address] [place], [address] Eosinophils/100 WBC (Bld) 0.0 % Normal 0-5 [facility] Comment on above: Performed By: #### L 500.4050, L501.2300, L501.9985, L100.0100 ####[facility] [address] [place], [address] Erythrocyte distribution width (RBC) [Ratio] 12.8 % Normal 11.6-14.6 [facility] Comment on above: Performed By: #### L 500.4050, L501.2300, L501.9985, L100.0100 ####[facility] [address] [place], [address] Hematocrit (Bld) [Volume fraction] 49.9 % Normal 40-54 [facility] Comment on above: Performed By: #### L 500.4050, L501.2300, L501.9985, L100.0100 ####[facility] [address] [place], [address] Hemoglobin (Bld) [Mass/Vol] 16.8 g/dL High 13.0-16.5 [facility] Comment on above: Performed By: #### L 500.4050, L501.2300, L501.9985, L100.0100 ####[facility] [address] [place], [address] IG% 0.700 Normal 0.0-0.9 [facility] Comment on above: Result Comment: IG% - Immature Granulocytes (promyelocytes, myelocytes andmetamyelocytes) > 1% indicates that a LEFT SHIFT is Present. Performed By: #### L 500.4050, L501.2300, L501.9985, L100.0100 ####[facility] [address] [place], [address] Lymphocytes/100 WBC (Bld) 9.8 % Low 19-41 [facility] Comment on above: Performed By: #### L 500.4050, L501.2300, L501.9985, L100.0100 ####[facility] [address] [place], [address] MCH (RBC) [Entitic mass] 31.3 pg Normal 27.0-32.0 [facility] Comment on above: Performed By: #### L 500.4050, L501.2300, L501.9985, L100.0100 ####[facility] [address] [place], [address] MCHC (RBC) [Mass/Vol] 33.7 g/dL Normal 32-36 [facility] Comment on above: Performed By: #### L 500.4050, L501.2300, L501.9985, L100.0100 ####[facility] [address] [place], [address] MCV (RBC) [Entitic vol] 92.9 fL Normal 80-94 [facility] Comment on above: Performed By: #### L 500.4050, L501.2300, L501.9985, L100.0100 ####[facility] [address] [place], [address] Monocytes/100 WBC (Bld) 3.2 % Normal 0-10 [facility] Comment on above: Performed By: #### L 500.4050, L501.2300, L501.9985, L100.0100 ####[facility] [address] [place], [address] Neutrophils/100 WBC (Bld) 86.2 % High 47-70 [facility] Comment on above: Performed By: #### L 500.4050, L501.2300, L501.9985, L100.0100 ####[facility] [address] [place], [address] Nucleated RBC (Bld) [#/Vol] 0 10*3/uL Normal 0-5 [facility] Comment on above: Performed By: #### L 500.4050, L501.2300, L501.9985, L100.0100 ####[facility] [address] [place], [address] Platelet mean volume (Bld) [Entitic vol] 10.4 fL Normal 6.2-12.0 [facility] Comment on above: Performed By: #### L 500.4050, L501.2300, L501.9985, L100.0100 ####[facility] [address] [place], [address] Platelets (Bld) [#/Vol] 290 10*3/uL Normal 150-450 [facility] Comment on above: Performed By: #### L 500.4050, L501.2300, L501.9985, L100.0100 ####[facility] [address] [place], [address] RBC (Bld) [#/Vol] 5.37 10*6/uL Normal 4.6-6.2 [facility] Comment on above: Performed By: #### L 500.4050, L501.2300, L501.9985, L100.0100 ####[facility] [address] [place], [address] RDW SD 43.8 fl Normal 35.1-43.9 [facility] Comment on above: Performed By: #### L 500.4050, L501.2300, L501.9985, L100.0100 ####[facility] [address] [place], [address] WBC (Bld) [#/Vol] 11.4 10*3/uL High 4.4-11.0 [facility] Comment on above: Performed By: #### L 500.4050, L501.2300, L501.9985, L100.0100 ####[facility] [address] [place], [address] Chest 1 View (Portable)on Chest 1 View (Portable) Normal [facility] Comprehensive Metabolic Prof ilon 06-19-2024 GAP 17 High 5-15 [facility] Comment on above: Performed By: #### L 500.4050, L501.2300, L501.9985, L100.0100 ####[facility] [address] [place], [address] Albumin [Mass/Vol] 4.1 g/dL Normal 3.4-4.8 [facility] Comment on above: Performed By: #### L 500.4050, L501.2300, L501.9985, L100.0100 ####[facility] [address] [place], [address] Albumin/Globulin [Mass ratio] 1.2 {ratio} Normal 0.9-2.4 [facility] Comment on above: Performed By: #### L 500.4050, L501.2300, L501.9985, L100.0100 ####[facility] [address] [place], [address] ALK PHOS 89 U/L Normal 40-129 [facility] Comment on above: Performed By: #### L 500.4050, L501.2300, L501.9985, L100.0100 ####[facility] [address] [place], [address] ALT [Catalytic activity/Vol] 38 U/L Normal <=46 [facility] Comment on above: Performed By: #### L 500.4050, L501.2300, L501.9985, L100.0100 ####[facility] [address] [place], [address] AST [Catalytic activity/Vol] 26 U/L Normal <=37 [facility] Comment on above: Performed By: #### L 500.4050, L501.2300, L501.9985, L100.0100 ####[facility] [address] [place], [address] Bilirubin [Mass/Vol] 0.63 mg/dL Normal 0.00-1.30 [facility] Comment on above: Performed By: #### L 500.4050, L501.2300, L501.9985, L100.0100 ####[facility] [address] [place], [address] BUN/CRE 24.5 RATIO High 10-20 [facility] Comment on above: Performed By: #### L 500.4050, L501.2300, L501.9985, L100.0100 ####[facility] [address], [address] Calcium [Mass/Vol] 9.6 mg/dL Normal 7.6-11.0 [facility] Comment on above: Performed By: #### L 500.4050, L501.2300, L501.9985, L100.0100 ####[facility] [address] [place], [address] Chloride [Moles/Vol] 97 mmol/L Low 98-108 [facility] Comment on above: Performed By: #### L 500.4050, L501.2300, L501.9985, L100.0100 ####[facility] [address] [place], [address] CO2 [Moles/Vol] 19.8 mmol/L Low 21.0-32.0 [facility] Comment on above: Performed By: #### L 500.4050, L501.2300, L501.9985, L100.0100 ####[facility] [address], [address] Creatinine [Mass/Vol] 1.12 mg/dL Normal 0.70-1.20 [facility] Comment on above: Performed By: #### L 500.4050, L501.2300, L501.9985, L100.0100 ####[facility] [address] [place], [address] ECRCL 70.97 ml/min Normal 50-250 [facility] Comment on above: Performed By: #### L 500.4050, L501.2300, L501.9985, L100.0100 ####[facility] [address] [place], [address] GFR/1.73 sq M.predicted among non-blacks MDRD (S/P/Bld) [Vol rate/Area] 73 mL/min/{1.73_m2} Normal >60 [facility] Comment on above: Result Comment: mL/m in/1.73m2 CKD-EPI Creatinine Equation (2020) Performed By: #### L 500.4050, L501.2300, L501.9985, L100.0100 ####[facility] [address] [place], [address] Globulin (S) [Mass/Vol] 3.5 g/dL Normal 2.2-4.2 [facility] Comment on above: Performed By: #### L 500.4050, L501.2300, L501.9985, L100.0100 ####[facility] [address] [place], [address] Glucose [Mass/Vol] 324 mg/dL High 70-99 [facility] Comment on above: Performed By: #### L 500.4050, L501.2300, L501.9985, L100.0100 ####[facility] [address] [place], [address] Potassium [Moles/Vol] 4.3 mmol/L Normal 3.3-5.1 [facility] Comment on above: Performed By: #### L 500.4050, L501.2300, L501.9985, L100.0100 ####[facility] [address] [place], [address] Sodium [Moles/Vol] 134 mmol/L Normal 133-145 [facility] Comment on above: Performed By: #### L 500.4050, L501.2300, L501.9985, L100.0100 ####[facility] [address] [place], [address] T PROT 7.6 g/dL Normal 5.9-8.4 [facility] Comment on above: Performed By: #### L 500.4050, L501.2300, L501.9985, L100.0100 ####[facility] [address] [place], [address] Urea nitrogen [Mass/Vol] 27 mg/dL High 4-19 [facility] Comment on above: Performed By: #### L 500.4050, L501.2300, L501.9985, L100.0100 ####[facility] [address] [place], [address] Eosinophil percentageOrdered By: Steve Donald on 06-19-2024 Eosinophils/100 WBC (Bld) 0.0 % 0-5 [facility] Hemoglobin A1con 06-19-2024 HbA1c (Bld) [Mass fraction] 12.4 % Normal <=5.6 [facility] Comment on above: Performed By: #### L 500.4050, L501.2300, L501.9985, L100.0100 ####[facility] [address] [place], [address] Hemoglobin A1c percentageOrd ered By: Steve Donald on 06-19-2024 HbA1c (Bld) [Mass fraction] 12.4 % >5.7 [facility] Immature granulocytes/100 WB C Auto (Bld)Ordered By: Steve Donald on 06-19-2024 Immature granulocytes/100 WBC (Bld) 0.700 % 0.0-0.9 [facility] Monocyte percentageOrdered B y: Steve Donald on 06-19-2024 Monocytes/100 WBC (Bld) 3.2 % 0-10 [facility] Neutrophil percentageOrdered By: Steve Donald on 06-19-2024 Neutrophils/100 WBC (Bld) 86.2 % High 47-70 [facility] No Panel InformationOrdered By: Steve Donald on 06-19-2024 26 U/L <38 [facility] Phosphoruson 06-19-2024 Phosphate [Mass/Vol] 4.4 mg/dL Normal 2.7-4.5 [facility] Comment on above: Performed By: #### L 500.4050, L501.2300, L501.9985, L100.0100 ####[facility] [address] [place], [place], [address] Serum globulin measurementOr dered By: Steve Donald on 06-19-2024 Globulin (S) [Mass/Vol] 3.5 g/dL 2.2-4.2 [facility] Serum or plasma alanine martino otransferase (ALT) measurementOrdered By: Steve Donald on 06-19-2024 ALT [Catalytic activity/Vol] 38 U/L <47 [facility] Serum or plasma albumin brenda urement (mass/volume)Ordered By: Steve Donald on 06-19-2024 Albumin [Mass/Vol] 4.1 g/dL 3.4-4.8 [facility] Serum or plasma albumin/glob ulin mass ratioOrdered By: Steve Donald on 06-19-2024 Albumin/Globulin [Mass ratio] 1.2 {ratio} 0.9-2.4 [facility] Serum or plasma alkaline yulia sphatase measurementOrdered By: Steve Donald on 06-19-2024 ALP [Catalytic activity/Vol] 89 U/L 40-129 [facility] Total proteinOrdered By: Sidney Donald on 06-19-2024 Protein [Mass/Vol] 7.6 g/dL 5.9-8.4 [facility] Assessment of wrist artery p atency prior to arterial punctureOrdered By: Steve Donald on 06-18-2024 Arterial patency Wrist artery --pre arterial puncture Positive [facility] Bedside Glucoseon 06-18-2024 FINGERSTICK GLU 434 mg/dL High 74-106 [facility] Comment on above: Result Comment: SNEHA GEMENT OF PATIENT CARE PER NURSING PROTOCOL Performed By: #### L 501.080 ####[facility] [address] [place], [address] FINGERSTICK GLU 429 mg/dL High 74-106 [facility] Comment on above: Result Comment: Dr Manjit solis FollowedMANAGEMENT OF PATIENT CARE PER NURSING PROTOCOL Performed By: #### L 501.080 ####[facility] [address] [place], [address] FINGERSTICK GLU 321 mg/dL High -106 [facility] Comment on above: Result Comment: SNEHA GEMENT OF PATIENT CARE PER NURSING PROTOCOL Performed By: #### L 501.080 ####[facility] [address] [place], [address] FINGERSTICK GLU 282 mg/dL High [facility]106 [facility] Comment on above: Result Comment: SNEHA GEMENT OF PATIENT CARE PER NURSING PROTOCOL Performed By: #### L 501.080 ####[facility] [address] [place], [address] Bilirubin Test strip Ql (U)O rdered By: Steve Donald on 06-18-2024 Bilirubin Ql (U) Negative Negative [facility] Positive Normal [facility] Comment on above: Performed By: #### L 9000.0800 ####[facility] [address], [address] Base excess Calc (Bld) [Moles/Vol] 2 mmol/L Normal -2 to +2 [facility] Comment on above: Performed By: #### L 9000.0800 ####[facility] [address] [place], [address] Blood Gas Type ART Normal [facility] Comment on above: Performed By: #### L 9000.0800 ####[facility] [address] [place], [address] CO2 [Moles/Vol] 28 mmol/L Normal [facility] Comment on above: Performed By: #### L 9000.0800 ####[facility] [address] [place], [address] Comment 17/11 12 30% Normal [facility] Comment on above: Performed By: #### L 9000.0800 ####[facility] [address] [place], [address] FI02 30.0 Normal [facility] Comment on above: Performed By: #### L 9000.0800 ####[facility] [address] [place], [address] HCO3 (Bld) [Moles/Vol] 26.7 mmol/L High 22-26 [facility] Comment on above: Performed By: #### L 9000.0800 ####[facility] [address] [place], [address] Mode Not entered Normal [facility] Comment on above: Performed By: #### L 9000.0800 ####[facility] [address] [place], [address] O2 Delivery Dev BiPAP Normal [facility] Comment on above: Performed By: #### L 9000.0800 ####[facility] [address] [place], [address] pCO2 41.5 mmHg Normal 35-45 [facility] Comment on above: Performed By: #### L 9000.0800 ####[facility] [address] [place], [address] pH (Bld) 7.42 [pH] Normal 7.35-7.45 [facility] Comment on above: Performed By: #### L 9000.0800 ####[facility] [address] [place], [address] PO2 73 mmHG Low 75-100 [facility] Comment on above: Performed By: #### L 9000.0800 ####[facility] [address] [place], [address] SITE R Radial Normal [facility] Comment on above: Performed By: #### L 9000.0800 ####[facility] [address] [place], [address] SO2 95 Normal 95-99 [facility] Comment on above: Performed By: #### L 9000.0800 ####[facility] [address] [place], [address] Blood base excess determinat ionOrdered By: Steve Donald on 06-18-2024 Base excess Calc (BldV) [Moles/Vol] 2 mmol/L -2-2 [facility] Blood bicarbonate measuremen tOrdered By: Steve Donald on 06-18-2024 HCO3 (Bld) [Moles/Vol] 26.7 mmol/L High 22-26 [facility] CTA Chest W/WO Contraston CTA Chest W/WO Contrast Normal [facility] Consultation - Cardiologyon 06-18-2024 Consultation - Cardiology Normal [facility] Echo Complete W/ Contraston 06-18-2024 Echo Complete W/ Contrast Normal [facility] Emergency Department Summary on 06-18-2024 Emergency Department Summary Normal [facility] H AND P Exam - Hospitaliston 06-18-2024 H&P Exam - Hospitalist Normal [place] Influenza virus A and B and SARS-CoV-2 [...] By: #### L 499.0042 ####[facility] [address] [place], [address] L499.0043on 06-18-2024 Trop T High Sen 88 ng/L Invalid Interpretation Code <=22 [facility] Comment on above: Result Comment: Crit ical Result(s) Called at 0334: by: NARAYAN TOEAFFOLTER??Results read back by same. Performed By: #### L 499.0043 ####[facility] [address] [facility] [address] L503.7505on 06-18-2024 Natriuretic peptide B (Bld) [Mass/Vol] 2490 pg/mL High <=900 [facility] Comment on above: Result Comment: Hear t Failure Unlikely: < 300 pg/mLHeart Failure Likely< 50 Years: > 450 pg/mL50-75 Years: > 900 pg/mL>75 Years: > 1800 pg/mL Performed By: #### L 503.7505 ####[facility] [address] [place], [address] M100.678on 06-18-2024 M100.678 SARS-CoV-2 (COVID 19 ) Negative INFLUENZA A Negative INFLUENZA B Negative RSV PCR Negative Normal [facility] Comment on above: Performed By: #### M 100.678 ####[facility] [address] [place], [address] Magnesiumon 06-18-2024 Magnesium [Mass/Vol] 2.0 mg/dL Normal 1.5-2.2 [facility] Comment on above: Performed By: #### L 501.9520, L501.5200 ####[facility] [address] [place], [place], [address] Magnesium measurement (mass/ volume)Ordered By: Steve Donald on 06-18-2024 Magnesium (Unsp spec) [Mass/Vol] 2.0 mg/dL 1.5-2.2 [facility] Measurement, pHOrdered By: Jovana Donald on 06-18-2024 pH (Unsp spec) 7.42 [pH] 7.35-7.45 [facility] Mucus LM Ql (Urine sed)Order ed By: Steve Donald on 06-18-2024 Mucus Ql (Urine sed) 0 SEEN /hpf [facility] Nitrite Test strip Ql (U)Ord ered By: [...] By: #### M 100.638 ####[facility] [address] [place], [place], [address] Respiratory pathogens detect ion panel by molecular [...] #### L 501.9520, L501.5200 ####[facility] [address] [place], [address] Total carbon dioxide measure mentOrdered By: Steve [...] By: #### L 400.0001 ####[facility] [address] [place], [address] EPI,SQUAMOUS 0-5 SEEN Normal 0-5 [facility] Comment on above: Order Comment: CLEAN CATCH Performed By: #### L 400.0001 ####[facility] [address] [place], [address] RBC 0 SEEN Normal 0-5 [facility] Comment on above: Order Comment: CLEAN CATCH Performed By: #### L 400.0001 ####[facility] [address] [place], [address] WBC 0-5 SEEN Normal 0-5 [facility] Comment on above: Order Comment: CLEAN CATCH Performed By: #### L 400.0001 ####[facility] [address] [place], [address] BILIRUBIN URINE Negative Normal Negative [facility] Comment on above: Order Comment: CLEAN CATCH Performed By: #### L 400.0001 ####[facility] [address] [place], [address] Clarity (U) Clear Normal Clear [facility] Comment on above: Order Comment: CLEAN CATCH Performed By: #### L 400.0001 ####[facility] [address] [place], [address] Color (U) Yellow Normal Yellow [facility] Comment on above: Order Comment: CLEAN CATCH Performed By: #### L 400.0001 ####[facility] [address] [place], [address] GLUCOSE, UR 1000 mg/dl Abnormal Normal [facility] Comment on above: Order Comment: CLEAN CATCH Performed By: #### L 400.0001 ####[facility] [address] [place], [address] KETONE UR Negative Normal Negative [facility] Comment on above: Order Comment: CLEAN CATCH Performed By: #### L 400.0001 ####[facility] [address] [place], [address] LEUK ESTERASE Negative Normal Negative [facility] Comment on above: Order Comment: CLEAN CATCH Performed By: #### L 400.0001 ####[facility] [address] [place], [address] Nitrite Ql (U) Negative Normal Negative [facility] Comment on above: Order Comment: CLEAN CATCH Performed By: #### L 400.0001 ####[facility] [address] [place], [address] OCCULT BLOOD-UR Negative Normal Negative [facility] Comment on above: Order Comment: CLEAN CATCH Performed By: #### L 400.0001 ####[facility] [address] [place], [address] pH UR 6.0 Normal 5.0 - 8.0 [facility] Comment on above: Order Comment: CLEAN CATCH Performed By: #### L 400.0001 ####[facility] [address] [place], [address] PROT DIPSTX Negative Normal Negative [facility] Comment on above: Order Comment: CLEAN CATCH Performed By: #### L 400.0001 ####[facility] [address] [place], [address] SP.GR. DIPSTX 1.010 Normal 1.002-1.030 [facility] Comment on above: Order Comment: CLEAN CATCH Performed By: #### L 400.0001 ####[facility] [address] [place], [address] UROBILI Normal Normal Normal [facility] Comment on above: Order Comment: CLEAN CATCH Performed By: #### L 400.0001 ####[facility] [address] [place], [address] Mucus Ql (Urine sed) 0 SEEN Normal [facility] Comment on above: Order Comment: CLEAN CATCH Performed By: #### L 400.0001 ####[facility] [address] [place], [place], [address] Urine clarityOrdered By: Sidney Donald on 06-18-2024 [...] 06-18-2024 Urobilinogen Ql (U) Normal mg/dl Normal [facility] White blood cell countOrdere d By: Steve Donald on 06-18-2024 White blood cell count 0-5 SEEN /hpf 0-5 [facility] 12 Lead EKGon 06-17-2024 12 Lead EKG Normal [facility] Basic Metabolic Profile (BMP )on 06-17-2024 BUN/CRE 18.7 RATIO Normal 10-20 [facility] Comment on above: Performed By: #### L 100.0100, L500.2500, L501.4021 ####[facility] [address] [place], [address] Calcium [Mass/Vol] 9.4 mg/dL Normal 7.6-11.0 [facility] Comment on above: Performed By: #### L 100.0100, L500.2500, L501.4021 ####[facility] [address] [place], [address] Chloride [Moles/Vol] 100 mmol/L Normal 98-108 [facility] Comment on above: Performed By: #### L 100.0100, L500.2500, L501.4021 ####[facility] [address] [place], [address] CO2 [Moles/Vol] 21.0 mmol/L Normal 21.0-32.0 [facility] Comment on above: Performed By: #### L 100.0100, L500.2500, L501.4021 ####[facility] [address] [place], [address] Creatinine [Mass/Vol] 0.94 mg/dL Normal 0.70-1.20 [facility] Comment on above: Performed By: #### L 100.0100, L500.2500, L501.4021 ####[facility] [address] [place], [address] GAP 14 Normal 5-15 [facility] Comment on above: Performed By: #### L 100.0100, L500.2500, L501.4021 ####[facility] [address], [address] GFR/1.73 sq M.predicted among non-blacks MDRD (S/P/Bld) [Vol rate/Area] 91 mL/min/{1.73_m2} Normal >60 [facility] Comment on above: Result Comment: mL/m in/1.73m2 CKD-EPI Creatinine Equation (2020) Performed By: #### L 100.0100, L500.2500, L501.4021 ####[facility] [address] [place], [address] Glucose [Mass/Vol] 438 mg/dL High 70-99 [facility] Comment on above: Performed By: #### L 100.0100, L500.2500, L501.4021 ####[facility] [address], [address] Potassium [Moles/Vol] 4.5 mmol/L Normal 3.3-5.1 [facility] Comment on above: Performed By: #### L 100.0100, L500.2500, L501.4021 ####[facility] [address] [place], [address] Sodium [Moles/Vol] 134 mmol/L Normal 133-145 [facility] Comment on above: Performed By: #### L 100.0100, L500.2500, L501.4021 ####[facility] [address] [place], [address] Urea nitrogen [Mass/Vol] 18 mg/dL Normal 4-19 [facility] Comment on above: Performed By: #### L 100.0100, L500.2500, L501.4021 ####[facility] [address] [place], [address] CBC W/Diff, Automatedon 03-04 09-2024 Absolute Lymph 2.17 X10 3/uL Normal 0.83-4.51 [facility] Comment on above: Performed By: #### L 100.0100, L500.2500, L501.4021 ####[facility] [address] [place], [address] Absolute Neut 2.9 X10 3/uL Normal 2.0-7.7 [facility] Comment on above: Performed By: #### L 100.0100, L500.2500, L501.4021 ####[facility] [address] [place], [address] Basophils/100 WBC (Bld) 0.3 % Normal 0-1 [facility] Comment on above: Performed By: #### L 100.0100, L500.2500, L501.4021 ####[facility] [address] [place], [address] Eosinophils/100 WBC (Bld) 2.2 % Normal 0-5 [facility] Comment on above: Performed By: #### L 100.0100, L500.2500, L501.4021 ####[facility] [address] [place], [address] Erythrocyte distribution width (RBC) [Ratio] 13.1 % Normal 11.6-14.6 [facility] Comment on above: Performed By: #### L 100.0100, L500.2500, L501.4021 ####[facility] [address] [place], [address] Hematocrit (Bld) [Volume fraction] 46.2 % Normal 40-54 [facility] Comment on above: Performed By: #### L 100.0100, L500.2500, L501.4021 ####[facility] [address] [place], [address] Hemoglobin (Bld) [Mass/Vol] 15.2 g/dL Normal 13.0-16.5 [facility] Comment on above: Performed By: #### L 100.0100, L500.2500, L501.4021 ####[facility] [address] [place], [address] IG% 0.200 Normal 0.0-0.9 [facility] Comment on above: Result Comment: IG% - Immature Granulocytes (promyelocytes, myelocytes andmetamyelocytes) > 1% indicates that a LEFT SHIFT is Present. Performed By: #### L 100.0100, L500.2500, L501.4021 ####[facility] [address] [place], [address] Lymphocytes/100 WBC (Bld) 37.2 % Normal 19-41 [facility] Comment on above: Performed By: #### L 100.0100, L500.2500, L501.4021 ####[facility] [address] [place], [address] MCH (RBC) [Entitic mass] 31.3 pg Normal 27.0-32.0 [facility] Comment on above: Performed By: #### L 100.0100, L500.2500, L501.4021 ####[facility] [address] [place], [address] MCHC (RBC) [Mass/Vol] 32.9 g/dL Normal 32-36 [facility] Comment on above: Performed By: #### L 100.0100, L500.2500, L501.4021 ####[facility] [address] [place], [address] MCV (RBC) [Entitic vol] 95.1 fL High 80-94 [facility] Comment on above: Performed By: #### L 100.0100, L500.2500, L501.4021 ####[facility] [address] [place], [address] Monocytes/100 WBC (Bld) 10.3 % High 0-10 [facility] Comment on above: Performed By: #### L 100.0100, L500.2500, L501.4021 ####[facility] [address] [place], [address] Neutrophils/100 WBC (Bld) 49.8 % Normal 47-70 [facility] Comment on above: Performed By: #### L 100.0100, L500.2500, L501.4021 ####[facility] [address] [place], [address] Nucleated RBC (Bld) [#/Vol] 0 10*3/uL Normal 0-5 [facility] Comment on above: Performed By: #### L 100.0100, L500.2500, L501.4021 ####[facility] [address] [place], [address] Platelet mean volume (Bld) [Entitic vol] 10.3 fL Normal 6.2-12.0 [facility] Comment on above: Performed By: #### L 100.0100, L500.2500, L501.4021 ####[facility] [address] [place], [address] Platelets (Bld) [#/Vol] 244 10*3/uL Normal 150-450 [facility] Comment on above: Performed By: #### L 100.0100, L500.2500, L501.4021 ####[facility] [address] [place], [address] RBC (Bld) [#/Vol] 4.86 10*6/uL Normal 4.6-6.2 [facility] Comment on above: Performed By: #### L 100.0100, L500.2500, L501.4021 ####[facility] [address] [place], [address] RDW SD 45.7 fl High 35.1-43.9 [facility] Comment on above: Performed By: #### L 100.0100, L500.2500, L501.4021 ####[facility] [address] [place], [address] WBC (Bld) [#/Vol] 5.8 10*3/uL Normal 4.4-11.0 [facility] Comment on above: Performed By: #### L 100.0100, L500.2500, L501.4021 ####[facility] [address] [place], [address] Chest 1 View (Portable)on Chest 1 View (Portable) Normal [facility] L501.4021on 06-17-2024 Trop T High Sen 76 ng/L Invalid Interpretation Code <=22 [facility] Comment on above: Result Comment: Crit ical Result(s) Called at: 2342 by: NARAYAN LAMBERT??Results read back by same. Performed By: #### L 100.0100, L500.2500, L501.4021 ####[facility] [address] [place], [address] No Panel InformationOrdered By: ED PROVIDER on 06-17-2024 76 ng/L High <22 [facility] No Panel InformationOrdered By: Jevon Osorio on 06-17-2024 2490 pg/mL High <900 [facility] Ankle Brachial Indexon 06-13 Ankle Brachial Index Normal [facility] Arterial Doppler ultrasound reportOrdered By: Saúl Flowers on 06-13-2024 Study report [facility] [address] [place] [address] US Art Duplex Unilat Lower Ext 06/13/24 1426 MR#: [id number] Acct: [id number] Name: JAYLNE MEJIA Sr. Rep #:[id number] : 1960 [...] Dictated: 06/13/24 1426 Date Transcribed: 06/13/24 163 Schedule Planning Manager: Signed [facility] Work Phone: Arterial study reportOrdered By: Saúl Flowers on 06-13-2024 Noninvasive arteriosclerosis study report [facility] [address] [place] [address] Ankle Brachial Index 06/13/24 1351 MR#: [id number] Acct: [id number] Name: JAYLEN MEJIA Hannah Schmitt. Rep #:[id number] : 1960 64 From: Saúl Whaley Attending Dr: NILSON Heck Stat us: REG CLI Ordering Dr: Lubna Manley Date: Location: [facility] Sex: M C Admitted: Reason For [...] Dictated: 06/13/24 1351 Date Transcribed: 06/13/24 1630 Schedule Planning Manager: Signed [facility] Work Phone: US Art Duplex Unilat Lower E xton 06-13-2024 US Art Duplex Unilat Lower Ext Normal [facility] Chest 1 View (Portable)on Chest 1 View (Portable) Normal [facility] Emergency Department Summary on 05-21-2024 Emergency [...] By: #### M 100.678 ####[facility] [address] [place], [address] MR/Rolo 05-17-2024 MR/BMS.BVS Normal [facility] Echo [...] By: #### L 9100.0100 ####[facility] [address] [place], [address] Activated clotting timeOrder ed By: Saúl Flowers on 04-20-2024 Activated Clotting Time 222 sec High 74-137 [facility] Basic Metabolic Profile (BMP )on 04-20-2024 BUN/CRE 15.1 RATIO Normal 10-20 [facility] Comment on above: Performed By: #### L 500.2500, L100.0500 ####[facility] [address] [place], [address] CA,Total 9.3 mg/dL Normal 8.5-10.1 [facility] Comment on above: Performed By: #### L 500.2500, L100.0500 ####[facility] [address] [place], [address] Chloride [Moles/Vol] 103 mmol/L Normal 98-107 [facility] Comment on above: Performed By: #### L 500.2500, L100.0500 ####[facility] [address] [place], [address] CO2 [Moles/Vol] 26.0 mmol/L Normal 21.0-32.0 [facility] Comment on above: Performed By: #### L 500.2500, L100.0500 ####[facility] [address] [place], [address] Creatinine [Mass/Vol] 1.06 mg/dL Normal 0.70-1.30 [facility] Comment on above: Result Comment: The validity of the calculated GFR GFRAA in patients over70 years has not been determined. Clinical correlation isessential. Performed By: #### L 500.2500, L100.0500 ####[facility] [address] [place], [address] ECRCL 78.67 ml/min Normal [facility] Comment on above: Performed By: #### L 500.2500, L100.0500 ####[facility] [address] [place], [address] EST GFR - AA 90 mL/min Normal >60 [facility] Comment on above: Result Comment: Afri can [place] GFR Calc Performed By: #### L 500.2500, L100.0500 ####[facility] [address] [place], [address] GAP 6 Normal 5-15 [facility] Comment on above: Performed By: #### L 500.2500, L100.0500 ####[facility] [address] [place], [address] GFR/1.73 sq M.predicted among non-blacks MDRD (S/P/Bld) [Vol rate/Area] 75 mL/min/{1.73_m2} Normal >60 [facility] Comment on above: Result Comment: Non- GFR Calc Performed By: #### L 500.2500, L100.0500 ####[facility] [address] [place], [address] Glucose [Mass/Vol] 228 mg/dL High 74-106 [facility] Comment on above: Result Comment: Gluc ose result greater than or equal to 200 mg/dLsuggests DIABETES MELLITUS per A.D.A. criteria. Performed By: #### L 500.2500, L100.0500 ####[facility] [address] [place], [address] Potassium [Moles/Vol] 4.3 mmol/L Normal 3.5-5.1 [facility] Comment on above: Performed By: #### L 500.2500, L100.0500 ####[facility] [address] [place], [address] Sodium [Moles/Vol] 135 mmol/L Low 136-145 [facility] Comment on above: Performed By: #### L 500.2500, L100.0500 ####[facility] [address] [place], [address] Urea nitrogen [Mass/Vol] 16 mg/dL Normal 7-18 [facility] Comment on above: Performed By: #### L 500.2500, L100.0500 ####[facility] [address] [place], [address] Blood urea nitrogen (BUN)/cr eatinine ratioOrdered By: Saúl Flowers on 04-20-2024 Urea nitrogen/Creatinine [Mass ratio] 15.1 mg/mg 10-20 [facility] CBC-Complete Blood Cnt No Di ffon 04-20-2024 Erythrocyte distribution width (RBC) [Ratio] 12.9 % Normal 11.6-14.6 [facility] Comment on above: Performed By: #### L 500.2500, L100.0500 ####[facility] [address] [place], [address] Hematocrit (Bld) [Volume fraction] 52.2 % Normal 40-54 [facility] Comment on above: Performed By: #### L 500.2500, L100.0500 ####[facility] [address] [place], [address] Hemoglobin (Bld) [Mass/Vol] 17.8 g/dL High 13.0-16.5 [facility] Comment on above: Performed By: #### L 500.2500, L100.0500 ####[facility] [address] [place], [address] MCH (RBC) [Entitic mass] 31.7 pg Normal 27.0-32.0 [facility] Comment on above: Performed By: #### L 500.2500, L100.0500 ####[facility] [address] [place], [address] MCHC (RBC) [Mass/Vol] 34.1 g/dL Normal 32-36 [facility] Comment on above: Performed By: #### L 500.2500, L100.0500 ####[facility] [address] [place], [address] MCV (RBC) [Entitic vol] 92.9 fL Normal 80-94 [facility] Comment on above: Performed By: #### L 500.2500, L100.0500 ####[facility] [address] [place], [address] Platelet mean volume (Bld) [Entitic vol] 9.5 fL Normal 6.2-12.0 [facility] Comment on above: Performed By: #### L 500.2500, L100.0500 ####[facility] [address] [place], [address] Platelets (Bld) [#/Vol] 271 10*3/uL Normal 150-450 [facility] Comment on above: Performed By: #### L 500.2500, L100.0500 ####[facility] [address] [place], [address] RBC (Bld) [#/Vol] 5.62 10*6/uL Normal 4.6-6.2 [facility] Comment on above: Performed By: #### L 500.2500, L100.0500 ####[facility] [address] [place], [address] RDW SD 43.8 fl Normal 35.1-43.9 [facility] Comment on above: Performed By: #### L 500.2500, L100.0500 ####[facility] [address] [place], [address] WBC (Bld) [#/Vol] 8.5 10*3/uL Normal 4.4-11.0 [facility] Comment on above: Performed By: #### L 500.2500, L100.0500 ####[facility] [address] [place], [address] Carbon dioxide measurementOr dered By: Saúl Flowers on 04-20-2024 CO2 [Moles/Vol] 26.0 mmol/L 21.0-32.0 [facility] Chloride measurementOrdered By: Saúl Flowers on 04-20-2024 Chloride [Moles/Vol] 103 mmol/L 98-107 [facility] Erythrocyte distribution wid th ratioOrdered By: [...] Glucose [Mass/Vol] 228 mg/dL High 74-106 [facility] Comment on above: Glucose result great [...] (RBC) [Entitic vol] 92.9 fL 80-94 [facility] Mean corpuscular hemoglobin (MCH) determinationOrdered By: Saúl Flowers on 04-20-2024 MCH (RBC) [Entitic mass] 31.7 pg 27.0-32.0 [facility] Mean corpuscular hemoglobin concentration (MCHC) determinationOrdered By: Saúl Flowers on 04-20-2024 MCHC (RBC) [Mass/Vol] 34.1 g/dL 32-36 [facility] Mean platelet volume determi nationOrdered By: Saúl Flowers on 04-20-2024 Platelet mean volume (Bld) [Entitic vol] 9.5 fL 6.2-12.0 [facility] Operative Reporton Operative Report Normal [facility] Platelet countOrdered By: Chacho Flowers on 04-20-2024 Platelets (Bld) [#/Vol] 271 10*3/uL 150-450 [facility] Potassium measurementOrdered By: Saúl Flowers on 04-20-2024 Potassium [Moles/Vol] 4.3 mmol/L 3.5-5.1 [facility] RBC Auto (Bld) [#/Vol]Ordere d By: Saúl Flowers on 04-20-2024 RBC (Bld) [#/Vol] 5.62 10*6/uL 4.6-6.2 [facility] Serum anion gap measurementO rdered By: Saúl Flowers on 04-20-2024 Anion gap [Moles/Vol] 6 mmol/L 08-18 [facility] Serum or plasma calcium brenda urement (mass/volume)Ordered By: Saúl Flowers on 04-20-2024 Calcium [Mass/Vol] 9.3 mg/dL 8.5-10.1 [facility] Serum or plasma creatinine m easurement (mass/volume)Ordered By: Saúl Flowers on 04-20-2024 Creatinine [Mass/Vol] 1.06 mg/dL 0.70-1.30 [facility] Comment on above: The validity of the calculated GFR & GFRAA in patients over 70 years has not been determined. Clinical correlation is essential. Serum or plasma urea nitroge n measurement (mass/volume)Ordered By: Saúl Flowers on 04-20-2024 Urea nitrogen [Mass/Vol] 16 mg/dL 10-21 [facility] Sodium levelOrdered By: Saúl Flowers on 04-20-2024 Sodium [Moles/Vol] 135 mmol/L Low 136-145 [facility] White blood cell (WBC) count Ordered By: Saúl Flowers on 04-20-2024 WBC (Bld) [#/Vol] 8.5 10*3/uL 4.4-11.0 [facility] MR/BMS.BVSon 04-08-2024 MR/BMS.BVS Normal [facility] Cardiology Visit Reporton Cardiology Visit Report Normal [facility] CREATININE FINGERSTICKon CREATININE WB < 1.0 Normal 0.70-1.30 [facility] Comment on above: Performed By: #### L 9100.0200 ####[facility] [address] [place], [place], [address] EGFR WB > 60.0000 Normal >60 [facility] Comment on above: Performed By: #### L 9100.0200 ####[facility] [address] [place], [address] CTA Abd w/Runoff W/WO Contra ston 03-29-2024 CTA Abd w/Runoff W/WO Contrast Normal [facility] Creatinine measurement at be dsideOrdered By: Lubna Manley on 03-29-2024 Bedside Creatinine < 1.0 mg/dL 0.70-1.30 [facility] EGFROrdered By: Lubna Manley on 03-29-2024 [...] 02-23-2024 Cholesterol [Mass/Vol] 238 mg/dL High 200 [place] Comment on above: Result Comment: <200 mg/dL Desirable 200-240 mg/dL Borderline >240 mg/dL High Risk Performed By: #### L 500.3400, L500.4100 ####[facility] [address] [place], [address] Cholesterol in HDL [Mass/Vol] 38 mg/dL Low [facility] Comment on above: Result Comment: The drugs N-Acetylcysteine and Metamizole may falselydepress this assay. Reference Range HDL <40 mg/dL Low HDL Cholesterol HDL >or= 60 mg/dL High HDL Cholesterol Performed By: #### L 500.3400, L500.4100 ####[facility] [address] [place], [address] LDL TNP Normal 0-130 [facility] Comment on above: Performed By: #### L 500.3400, L500.4100 ####[facility] [address] [place], [address] Triglyceride [Mass/Vol] 607 mg/dL High [facility] Comment on above: Result Comment: The drugs N-Acetylcysteine and Metamizole may falselydepress this assay.TRIGLYCERIDE IS GREATER THAN 400 mg/dL.LDL RESULT IS INVALID AND WILL NOT BE REPORTED.Serum Triglycerides Reference Interval Normal <150 mg/dL Borderline high 150 - 199 mg/dL High 200 - 499 mg/dL Very High > or = 500 mg/dL Performed By: #### L 500.3400, L500.4100 ####[facility] [address] [place], [address] VLDL TNP Normal 5-40 [facility] Comment on above: Performed By: #### L 500.3400, L500.4100 ####[facility] [address] [place], [address] Liver Profileon 02-23-2024 Albumin [Mass/Vol] 3.8 g/dL Normal 3.2-5.0 [facility] Comment on above: Performed By: #### L 500.3400, L500.4100 ####[facility] [address] [place], [address] ALK P 69 U/L Normal 45-117 [facility] Comment on above: Performed By: #### L 500.3400, L500.4100 ####[facility] [address] [place], [address] ALT [Catalytic activity/Vol] 37 U/L Normal 16-61 [facility] Comment on above: Performed By: #### L 500.3400, L500.4100 ####[facility] [address] [place], [address] AST [Catalytic activity/Vol] 27 U/L Normal 15-37 [facility] Comment on above: Performed By: #### L 500.3400, L500.4100 ####[facility] [address] [place], [address] Bilirubin [Mass/Vol] 0.70 mg/dL Normal 0.20-1.00 [facility] Comment on above: Result Comment: For patients on eltrombopag therapy, use of Dimension [place] TBIL is not recommended. Performed By: #### L 500.3400, L500.4100 ####[facility] [address] [place], [address] Bilirubin.direct [Mass/Vol] 0.16 mg/dL Normal 0.00-0.30 [facility] Comment on above: Performed By: #### L 500.3400, L500.4100 ####[facility] [address] [place], [address] Globulin (S) [Mass/Vol] 4.0 g/dL Normal 2.2-4.2 [facility] Comment on above: Performed By: #### L 500.3400, L500.4100 ####[facility] [address] [place], [address] T PROT 7.8 g/dL Normal 6.4-8.2 [facility] Comment on above: Performed By: #### L 500.3400, L500.4100 ####[facility] [address] [place], [address] MR/BMS.BVSon 01-07-2024 MR/BMS.BVS Normal [facility] Venous Duplex US, Unilateral on 11-13-2023 Venous Duplex US, Unilateral Normal [facility] Basophil percentageOrdered B y: Xiang Brown on 04-15-2023 Bilirubin [Mass/Vol] 0.60 mg/dL 0.20-1.00 [facility] Comment on above: For patients on eltr ombopag therapy, use of Dimension [place] TBIL is not recommended. Chloride [Moles/Vol] 100 mmol/L 98-107 [facility] Cholesterol [Mass/Vol] 255 mg/dL <200 [place] Comment on above: <200 mg/dL Desirable 200-240 mg/dL Borderline >240 mg/dL High Risk Glucose [Mass/Vol] 255 mg/dL 74-106 [facility] Comment on above: Glucose result great er than or equal to 200 mg/dLsuggests DIABETES MELLITUS per A.D.A. criteria. Potassium [Moles/Vol] 4.7 mmol/L 3.5-5.1 [facility] Comment on above: Slight Hemolysis, Re sult may be falsely increased. Protein [Mass/Vol] 7.7 g/dL 6.4-8.2 [facility] Sodium [Moles/Vol] 133 mmol/L 136-145 [facility] Triglyceride [Mass/Vol] 411 mg/dL <199 [facility] Comment on above: The drugs N-Acetylcy [...] System Globulin (S) [Mass/Vol] 4.1 g/dL 2.2-4.2 [facility] Urea nitrogen/Creatinine [Mass ratio] 11.9 [...] 04-15-2023 Albumin [Mass/Vol] 3.6 g/dL 3.2-5.0 [facility] Serum or plasma albumin/glob ulin mass ratioOrdered By: Xiang Rogers on 04-15-2023 Albumin/Globulin [Mass ratio] 0.9 {ratio} 0.9-2.4 [facility] Serum or plasma calcium brenda urement (mass/volume)Ordered By: Xiang Rogers on 04-15-2023 Calcium [Mass/Vol] 8.9 mg/dL 8.5-10.1 [facility] Serum or plasma cholesterol in HDL [...] Rogers on 04-15-2023 Cholesterol in VLDL [Mass/Vol] [facility] Comment on above: Test not performed Serum or plasma creatinine m easurement (mass/volume)Ordered By: Xiang Rogers on 04-15-2023 Creatinine [Mass/Vol] 1.01 mg/dL 0.70-1.30 [facility] Comment on above: The validity of the calculated GFR & GFRAA in patients over 70 years has not been determined. Clinical correlation is essential. Serum or plasma low density lipoprotein (LDL) cholesterol measurement (mass/volume)Ordered By: Xiang Rogers on 04-15-2023 Cholesterol in LDL [Mass/Vol] [facility] Comment on above: Test not performed Serum or plasma urea nitroge n measurement (mass/volume)Ordered By: Xiang Rogers on 04-15-2023 Urea nitrogen [Mass/Vol] 12 mg/dL 7-18 [facility] Thin prep Papanicolaou smear with manual screeningOrdered By: Xiang Rogers on 04-15-2023 Thin prep Papanicolaou smear with manual screening 29 U/L 15-37 [facility] Comment on above: Slight Hemolysis, Re sult may be falsely increased. Thin prep Papanicolaou smear with manual screening 5 5-15 [facility] Laboratory - Hematology and Cell countson 01-13-2023 HbA1c (Bld) [Mass fraction] 9.0 % 4.2-6.3 [facility] Basophil percentageOrdered B y: Dean Pena on 06-02-2022 Bilirubin [Mass/Vol] 0.50 mg/dL 0.20-1.00 [facility] Comment on above: For patients on eltr ombopag therapy, use of Dim[employer] [place] TBIL is not recommended. Cholesterol [Mass/Vol] 326 mg/dL <200 [place] Comment on above: <200 mg/dL Desirable 200-240 mg/dL Borderline >240 mg/dL High Risk Protein [Mass/Vol] 7.5 g/dL 6.4-8.2 [facility] Triglyceride [Mass/Vol] 883 mg/dL <199 [facility] Comment on above: The drugs N-Acetylcy [...] System Globulin (S) [Mass/Vol] 3.9 g/dL 2.2-4.2 [facility] Serum or plasma albumin brenda urement (mass/volume)Ordered By: Dean Pena on 06-02-2022 Albumin [Mass/Vol] 3.6 g/dL 3.2-5.0 [facility] Serum or plasma cholesterol in HDL [...] Pena on 06-02-2022 Cholesterol in VLDL [Mass/Vol] [facility] Comment on above: Test not performed Serum or plasma low density lipoprotein (LDL) cholesterol measurement (mass/volume)Ordered By: Dean Pena on 06-02-2022 Cholesterol in LDL [Mass/Vol] [facility] Comment on above: Test not performed [...] on 04-19-2022 Chloride [Moles/Vol] 104 mmol/L 98-107 [facility] Glucose [Mass/Vol] 235 mg/dL 74-106 [facility] Comment on above: Glucose result great er than or equal to 200 mg/dLsuggests DIABETES MELLITUS per A.D.A. criteria. Potassium [Moles/Vol] 4.1 mmol/L 3.5-5.1 [facility] Sodium [Moles/Vol] 137 mmol/L 136-145 [facility] Basophil percentageOrdered B y: Dr. Johnson on 04-19-2022 Basophils/100 WBC (Bld) 0.5 % 0-1 [facility] Eosinophils/100 WBC (Bld) 4.3 % 0-5 [facility] Neutrophils (Bld) [#/Vol] 3.9 10*3/uL 2.0-7.7 [facility] Neutrophils/100 WBC (Bld) 59.9 % 47-70 [facility] WBC (Bld) [#/Vol] 6.6 10*3/uL 4.4-11.0 [facility] Blood erythrocytes count (nu mber/volume)Ordered By: Dr. Johnson on 04-19-2022 RBC (Bld) [#/Vol] 4.82 10*6/uL 4.6-6.2 [facility] Blood hemoglobin measurement (mass/volume)Ordered By: Dr. Johnson on 04-19-2022 Hemoglobin (Bld) [Mass/Vol] 15.4 g/dL 13.0-16.5 [facility] Blood lymphocytes/100 leukoc ytesOrdered By: Dr. Johnson on 04-19-2022 Lymphocytes/100 WBC (Bld) 27.0 % 19-41 [facility] Blood monocytes/100 leukocyt esOrdered By: Dr. Johnson on 04-19-2022 Monocytes/100 WBC (Bld) 7.8 % 0-10 [facility] Blood platelet mean volumeOr dered By: Dr. Johnson on 04-19-2022 Platelet mean volume (Bld) [Entitic vol] 10.2 fL 6.2-12.0 [facility] Determination of erythrocyte mean corpuscular volume (MCV)Ordered By: Dr. Johnson on 04-19-2022 MCV (RBC) [Entitic vol] 95.4 fL 80-94 [facility] Glucose Glucometer (dC) [M ass/Vol]Ordered By: Dr. Fields on 04-19-2022 Glucose [Mass/Vol] 290 mg/dL 74-106 [facility] Comment on above: MANAGEMENT OF PATIEN [...] aPTT Coag (Bld) [Time] 25.0 s 24.1-36.2 [place] PT Coag (PPP) [Time] 13.0 s 11.7-14.9 [facility] - Hematology and Cell countsOrdered [...] 04-19-2022 MCHC (RBC) [Mass/Vol] 33.5 g/dL 32-36 [facility] No Panel InformationOrdered By: Dr. Fields on [...] 04-19-2022 Calcium [Mass/Vol] 8.9 mg/dL 8.5-10.1 [facility] Serum or plasma creatinine m easurement (mass/volume)Ordered By: Dr. Fields on 04-19-2022 Creatinine [Mass/Vol] 1.02 mg/dL 0.70-1.30 [facility] Comment on above: The validity of the [...] Basophils/100 WBC (Bld) 0.5 % 0-1 [facility] Work Phone: Chloride [Moles/Vol] 103 mmol/L 98-107 [facility] Work Phone: Eosinophils/100 WBC (Bld) 4.3 % 0-5 [facility] Work Phone: Glucose [Mass/Vol] 252 mg/dL 74-106 [facility] Work Phone: Comment on above: Moderate Lipemia, Re sult may be falsely increased.Glucose result greater than or equal to 200 mg/dLsuggests DIABETES MELLITUS per A.D.A. criteria. Neutrophils (Bld) [#/Vol] 4.7 10*3/uL 2.0-7.7 [facility] Work Phone: Neutrophils/100 WBC (Bld) 57.7 % 47-70 [facility] Work Phone: Potassium [Moles/Vol] 3.9 mmol/L 3.5-5.1 [facility] Work Phone: Comment on above: Moderate Hemolysis, Result may be falsely increased. Sodium [Moles/Vol] 136 mmol/L 136-145 [facility] Work Phone: WBC (Bld) [#/Vol] 8.1 10*3/uL 4.4-11.0 [facility] Work Phone: Blood erythrocytes count (nu mber/volume)on 04-18-2022 RBC (Bld) [#/Vol] 4.98 10*6/uL 4.6-6.2 [facility] Work Phone: Blood hemoglobin measurement (mass/volume)on 04-18-2022 Hemoglobin (Bld) [Mass/Vol] 16.4 g/dL 13.0-16.5 [facility] Work Phone: Blood lymphocytes/100 leukoc yteson 04-18-2022 Lymphocytes/100 WBC (Bld) 28.6 % 19-41 [facility] Work Phone: [phone] Blood monocytes/100 leukocyt eson 04-18-2022 Monocytes/100 WBC (Bld) 8.5 % 0-10 [facility] Work Phone: Blood platelet mean volumeon 04-18-2022 Platelet mean volume (Bld) [Entitic vol] 10.2 fL 6.2-12.0 [facility] Work Phone: Determination of erythrocyte mean corpuscular volume (MCV)on 04-18-2022 MCV (RBC) [Entitic vol] 97.4 fL 80-94 [facility] Work Phone: Hematocrit Auto (Bld) [Volum [...] on 04-18-2022 Magnesium [Mass/Vol] 1.8 mg/dL 1.6-2.6 [facility] Comment on above: Moderate Hemolysis, Result may be falsely increased. Laboratory - Coagulationon 0 04-18-2022 aPTT Coag (Bld) [Time] 25.6 s 24.1-36.2 [place] Work Phone: PT Coag (PPP) [Time] 12.3 s 11.7-14.9 [facility] Work Phone: [phone] Laboratory - Hematology and Cell countson 04-18-2022 Erythrocyte distribution width (RBC) [Entitic vol] 44.8 fL 35.1-43.9 [facility] Work Phone: [phone] Erythrocyte distribution width (RBC) [Ratio] 12.4 % 11.6-14.6 [facility] Work Phone: [phone] Immature granulocytes/100 WBC (Bld) 0.400 % 0.0-0.9 [facility] Work Phone: Comment on above: IG% - Immature Granu locytes (promyelocytes, myelocytes and metamyelocytes) > 1% indicates that a LEFT SHIFT is Present. MCH (RBC) [Entitic mass] 32.9 pg 27.0-32.0 [facility] Work Phone: [phone] Nucleated RBC/100 WBC (Bld) [Ratio] 0 % 0-5 [facility] Work Phone: [phone] MCHC Auto (RBC) [Mass/Vol]on 04-18-2022 MCHC (RBC) [Mass/Vol] 33.8 g/dL 32-36 [facility] Work Phone: [phone] No Panel InformationOrdered By: Dr. Fields on 04-18-2022 Troponin I High Sensitivity 1889 pg/mL 3.0-78.0 [facility] Comment on above: Critical Result(s) C alled at: 09:16:37 04/18/2022 by: Rula Gutierrez. Results read back by same. Please Note: New Test Units and Gender Specific Reference Ranges. For more information see Policy Stat Procedure [place] High Sensitivity Troponin (TNIH) and attachments. No Panel Informationon 04-18 Troponin I High Sensitivity 241 pg/mL 3.0-78.0 [facility] Work Phone: Comment on above: Critical Result(s) C simona at: 04:49:49 04/18/2022 by: NICOLE Matthews ARMATURE INSPECTOR. Results read back by same. Please Note: New Test Units and Gender Specific Reference Ranges. For more information see Policy Stat Procedure [place] High Sensitivity Troponin (TNIH) and attachments. Estimated [...] 04-18-2022 Calcium [Mass/Vol] 8.5 mg/dL 8.5-10.1 [facility] Work Phone: Comment on above: Moderate Lipemia, Re sult may be falsely decreased. Serum or plasma creatinine m easurement (mass/volume)on 04-18-2022 Creatinine [Mass/Vol] 1.05 mg/dL 0.70-1.30 [facility] Work Phone: Comment on above: The validity [...] % 4.2-6.3 [facility] CNOVon 02-04-2022 CNOV Office Visit (GENSWS ) JAYLEN MEJIA ([id number]) 1960 Omar Date Time Provider Department 02/04/22 [...] non-ST elevation myocardial infarction (NSTEMI) 06/11/[address] Herrera Espinosa Hypertension Other emphysema (HCC) [...] repair of (more content not included)... Normal [facility] CNOVon 01-28-2022 CNOV Office Visit (GENSWS ) JAYLEN MEJIA ([id number]) 1960 M Date Time Provider Department 01/28/22 10:30 AM YAMILKA PAREKHS During your visit today, we recorded the [...] non-ST elevation myocardial infarction (NSTEMI) 06/11/[address] Herrera Espinosa Hypertension Other emphysema (HCC) [...] and ROS (more content not included)... Normal [facility] CT PELVIS WO IVCONon 022 CT PELVIS WO IVCON * * *Final Report* * * DATE OF EXAM: Jan 28 2022 10:28AM [facility] 0556 - CT PELVIS WO IVCON / [...] Fat-containing left inguinal hernia. Scattered colonic diverticula. Schedule Planning Manager: JANNA Transcribe Date/Time: Jan 29 2022 10:59A Dictated by : ELVA BOWDEN MD This examination was interpreted and the report reviewed and electronically signed by: ELVA BOWDEN MD on Jan 29 2022 11:22AM EST [id number] Normal [facility] CNOVon 01-06-2022 CNOV Office Visit (JOVANNA ) JAYLEN MEJIA ([id number]) 1960 M Date Time Provider Department 01/06/22 [...] non-ST elevation myocardial infarction (NSTEMI) 06/11/[address] Herrera Espinosa Hypertension Other emphysema (HCC) [...] gauge x (more content not included)... Normal [facility] Absolute lymphocyte counton 01-01-2022 Lymphocytes Auto (Unsp spec) [#/Vol] 2.63 10*3/uL 0.83-4.51 [facility] Work Phone: Basophil percentageon 2021 Basophils/100 WBC (Bld) 0.3 % 0-1 [facility] Work Phone: Chloride [Moles/Vol] 98 mmol/L 98-107 [facility] Work Phone: Eosinophils/100 WBC (Bld) 3.4 % 0-5 [facility] Work Phone: Glucose [Mass/Vol] 283 mg/dL 74-106 [facility] Work Phone: Comment on above: Moderate Lipemia, Re sult may be falsely increased.Glucose result greater than or equal to 200 mg/dLsuggests DIABETES MELLITUS per A.D.A. criteria. Neutrophils (Bld) [#/Vol] 3.5 10*3/uL 2.0-7.7 [facility] Work Phone: Neutrophils/100 WBC (Bld) 51.0 % 47-70 [facility] Work Phone: Potassium [Moles/Vol] 4.2 mmol/L 3.5-5.1 [facility] Work Phone: [phone] Comment on above: Moderate Hemolysis, Result may be falsely increased. Sodium [Moles/Vol] 133 mmol/L 136-145 [facility] Work Phone: [phone] WBC (Bld) [#/Vol] 6.8 10*3/uL 4.4-11.0 [facility] Work Phone: Blood erythrocytes count (nu mber/volume)on 01-01-2022 RBC (Bld) [#/Vol] 4.96 10*6/uL 4.6-6.2 [facility] Work Phone: [phone] Blood hemoglobin measurement (mass/volume)on 01-01-2022 Hemoglobin (Bld) [Mass/Vol] 16.4 g/dL 13.0-16.5 [facility] Work Phone: Blood lymphocytes/100 leukoc yteson 01-01-2022 Lymphocytes/100 WBC (Bld) 38.7 % 19-41 [facility] Work Phone: [phone] Blood monocytes/100 leukocyt eson 01-01-2022 Monocytes/100 WBC (Bld) 6.3 % 0-10 [facility] Work Phone: Blood platelet mean volumeon 01-01-2022 Platelet mean volume (Bld) [Entitic vol] 10.3 fL 6.2-12.0 [facility] Work Phone: [phone] Determination of erythrocyte mean corpuscular volume (MCV)on 01-01-2022 MCV (RBC) [Entitic vol] 93.5 fL 80-94 [facility] Work Phone: [phone] Hematocrit Auto (Bld) [Volum e fraction]on 01-01-2022 Hematocrit (Bld) [Volume fraction] 46.4 % 40-54 [facility] Work Phone: Laboratory - Chemistry and C hemistry - challengeon 01-01-2022 CO2 [Moles/Vol] 30.0 mmol/L 21.0-32.0 [facility] Work Phone: [phone] Urea nitrogen/Creatinine [Mass ratio] 15.3 mg/mg 10-20 [facility] Work Phone: [phone] Laboratory - Hematology and Cell countson 01-01-2022 Erythrocyte distribution width (RBC) [Entitic vol] 41.0 fL 35.1-43.9 [facility] Work Phone: [phone] Erythrocyte distribution width (RBC) [Ratio] 11.9 % 11.6-14.6 [facility] Work Phone: [phone] Immature granulocytes/100 WBC (Bld) 0.300 % 0.0-0.9 [facility] Work Phone: [phone] Comment on above: IG% - Immature Granu locytes (promyelocytes, myelocytes and metamyelocytes) > 1% indicates that a LEFT SHIFT is Present. MCH (RBC) [Entitic mass] 33.1 pg 27.0-32.0 [facility] Work Phone: [phone] Nucleated RBC/100 WBC (Bld) [Ratio] 0 % 0-5 [facility] Work Phone: [phone] MCHC Auto (RBC) [Mass/Vol]on 01-01-2022 MCHC (RBC) [Mass/Vol] 35.3 g/dL 32-36 [facility] Work Phone: [phone] No Panel Informationon 01-01 Estimated GFR (MDRD) Amer 100 mL/min >60 [facility] Work Phone: [phone] Comment on above: GFR Calc Estimated GFR (MDRD) Non-Af Amer 82 mL/min >60 [facility] Work Phone: [phone] Comment on above: Non- GFR Calc Vitamin D 25-Hydroxy 13.3 ng/mL [facility] Work Phone: [phone] Comment on above: Vitamin D 25(OH) Sta [...] 01-01-2022 Calcium [Mass/Vol] 8.2 mg/dL 8.5-10.1 [facility] Work Phone: Comment on above: Moderate Lipemia, Re sult may be falsely decreased. Serum or plasma creatinine m easurement (mass/volume)on 01-01-2022 Creatinine [Mass/Vol] 0.98 mg/dL 0.70-1.30 [facility] Work Phone: Comment on above: The validity [...] >or= 6.5 % Please note range changes. FABRICIOOVon 07-18-2021 CNOV Office Visit (UCWSTR ) JAYLEN MEJIA Hannah ([id number]) 1960 M Date Time Provider Department 07/18/21 12:45 PM GAB CULVER [facility] During your visit today, we recorded the following information about you: Temperature Pulse Respiration Blood pressure 98 degrees 100/minute 18/minute 122/74 Weight 88 kg Gab Culver APRN.TANK FILLER 07/18/2021 1:57 PM Signed Subjective HPI Nontoxic-appearing [...] type 2 in obese (HCC) - Hyperlipidemia Casting Cleaner Dr. 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 Normal [facility] No Panel Informationon 07-18 Influenza Types A,B Direct FA (PORFIRIO) [facility] Work Phone: Basophil percentageon 2021 Chloride [Moles/Vol] 92 mmol/L 98-107 [facility] Work Phone: Cholesterol [Mass/Vol] 384 mg/dL <200 [place] Work Phone: Comment on above: Moderate Icterus, Re sult may be falsely decreased. <200 mg/dL Desirable 200-240 mg/dL Borderline >240 mg/dL High Risk Glucose [Mass/Vol] 351 mg/dL 74-106 [facility] Work Phone: Comment on above: Moderate Lipemia, Re sult may be falsely increased.Glucose result greater than or equal to 200 mg/dLsuggests DIABETES MELLITUS per A.D.A. criteria. Potassium [Moles/Vol] 4.3 mmol/L 3.5-5.1 [facility] Work Phone: Comment on above: Moderate Hemolysis, Result may be falsely increased. Sodium [Moles/Vol] 127 mmol/L 136-145 [facility] Work Phone: [phone] Triglyceride [Mass/Vol] mg/dL [facility] Work Phone: Comment on above: The drugs N-Acetylcy steine and Metamizole may falsely depress this assay. Laboratory - Chemistry and C hemistry - challengeon 06-13-2021 CO2 [Moles/Vol] 29.0 mmol/L 21.0-32.0 [facility] Work Phone: Urea nitrogen/Creatinine [Mass ratio] 18.6 [...] 06-13-2021 Calcium [Mass/Vol] 7.1 mg/dL 8.5-10.1 [facility] Work Phone: Comment on above: Moderate [...] (mass/volume)on 06-13-2021 Creatinine [Mass/Vol] 0.97 mg/dL 0.70-1.30 [facility] Work Phone: Comment [...] >or= 6.5 % Please note range changes. FABRICIOOVon 04-01-2021 CNOV Office Visit (UCWSTR ) JAYLEN MEJIA ([id number]) 1960 M Date Time Provider Department 04/01/21 8:00 AM MAXX OWEN [facility] During your visit today, we recorded the [...] the esophagus (more content not included)... Normal [facility] Influenza virus A and B and SARS-CoV-2 (COVID-19) Ag panel - Upper respiratory specim SARS-CoV-2 (COVID-19) RNA HAYDER+probe Ql (Resp) [facility] Work Phone: No Panel Information SARS-CoV-2 & FLU Antigen (Rapid) [facility] Work Phone: Vital Signs Date Time Vital Sign Value Performing Clinician Facility 11-10-2024 20:27-0400 Body temperature 98.9 [degF] Dr. Xiang Rogers DO Work Phone: [facility] 11-10-2024 20:27-0400 Diastolic blood pressure 77 mm[Hg] Dr. Xiang Rogers DO Work Phone: [facility] 11-10-2024 20:27-0400 Heart rate 95 /min Dr. Xiang Rogers DO Work Phone: [facility] 11-10-2024 20:27-0400 Respiratory rate 17 /min Dr. Xiang Rogers DO Work Phone: [facility] 11-10-2024 20:27-0400 SaO2% (BldA) [Mass fraction] 98 % Dr. Xiang Rogers DO Work Phone: [facility] 11-10-2024 20:27-0400 Systolic blood pressure 127 mm[Hg] Dr. Xiang Rogers DO Work Phone: [facility] 11-10-2024 20:00-0400 Inhaled oxygen flow rate 2 L/min Dr. Xiang Rogers DO Work Phone: [facility] 11-10-2024 14:47-0400 Body height 180.[address] Xiang Rogers DO Work Phone: [facility] 11-10-2024 10:14-0400 Body height 180.[address] [...] 10:05-0400 Heart rate 90 /min Dr. Xiang oRgers DO Work Phone: [facility] 07-14-2024 [...] Diastolic blood pressure 72 mm[Hg] Dr. Xiang Rgoers DO Work Phone: [facility] 07-12-2024 [...] 09:51-0500 Body weight 87.[address] Xiang oRgers DO Work Phone: [facility] 04-01-2024 [...] index (BMI) [Ratio] 25.95 kg/m2 Gab Culver APRN.TANK FILLER Work Phone: [facility] 12-31-2023 09:26-0400 Body temperature 97.5 [degF] Gab Culver APRN.TANK FILLER Work Phone: [facility] 12-31-2023 09:26-0400 Body weight 84.4 kg [facility] [employer] COMMUNICATIONS SERGEANT.TANK FILLER Work Phone: [facility] 12-31-2023 09:26-0400 Diastolic blood pressure 75 mm[Hg] [facility] [employer] COMMUNICATIONS SERGEANT.TANK FILLER Work Phone: [facility] 12-31-2023 09:26-0400 Heart rate 78 /min [facility] [employer] COMMUNICATIONS SERGEANT.TANK FILLER Work Phone: [facility] 12-31-2023 09:26-0400 Respiratory rate 18 /min [facility] [employer] COMMUNICATIONS SERGEANT.TANK FILLER Work Phone: [facility] 12-31-2023 09:26-0400 SaO2% (BldA) [Mass fraction] 96 % [facility] [employer] COMMUNICATIONS SERGEANT.TANK FILLER Work Phone: [facility] 12-31-2023 09:26-0400 Systolic blood pressure 126 mm[Hg] [facility] [employer] COMMUNICATIONS SERGEANT.TANK FILLER Work Phone: [facility] 06-02-2023 12:53-0500 Body height 180.34 cm [...] 98.01 [degF] Yamilka Parekh MD Work Phone: [facility] 02-04-2022 08:30-0400 Body weight 87.18 kg Yamilka Parekh MD Work Phone: [facility] 02-04-2022 08:30-0400 Diastolic blood pressure 74 mm[Hg] Yamilka Parekh MD Work Phone: [facility] 02-04-2022 08:30-0400 Heart rate 80 /min Yamilka Parekh MD Work Phone: [facility] 02-04-2022 08:30-0400 SaO2% (BldA) [Mass fraction] 98 % Yamilka Parekh MD Work Phone: [facility] 02-04-2022 08:30-0400 Systolic blood pressure 128 mm[Hg] Yamilka Parekh MD Work Phone: [facility] 01-28-2022 10:40-0400 Body height 180.3 cm Yamilka Parekh MD Work Phone: [facility] 01-28-2022 10:40-0400 Body temperature 97.3 [degF] Yamilka Parekh MD Work Phone: [facility] 01-28-2022 10:40-0400 Body weight 87.36 kg Yamilka Parekh MD Work Phone: [facility] 01-28-2022 10:40-0400 Diastolic blood pressure 70 mm[Hg] Yamilka Parekh MD Work Phone: [facility] 01-28-2022 10:40-0400 Heart rate 79 /min Yamilka Parekh MD Work Phone: [facility] 01-28-2022 10:40-0400 SaO2% (BldA) [Mass fraction] 98 % Yamilka Parekh MD Work Phone: [facility] 01-28-2022 10:40-0400 Systolic blood pressure 124 mm[Hg] Yamilka Parekh MD Work Phone: [facility] 01-06-2022 09:25-0400 Body height 180.3 cm Yamilka Parekh MD Work Phone: [facility] 01-06-2022 09:25-0400 Body temperature 97.7 [degF] Yamilka Parekh MD Work Phone: [facility] 01-06-2022 09:25-0400 Body weight 88.27 kg Yamilka Parekh MD Work Phone: [facility] 01-06-2022 09:25-0400 Diastolic blood pressure 77 mm[Hg] Yamilka Parekh MD Work Phone: [facility] 01-06-2022 09:25-0400 Heart rate 84 /min Yamilka Parekh MD Work Phone: [facility] 01-06-2022 09:25-0400 SaO2% (BldA) [Mass fraction] 99 % Yamilka Parekh MD Work Phone: [facility] 01-06-2022 09:25-0400 Systolic blood pressure 160 mm[Hg] Yamilka Parekh MD Work Phone: [facility] 01-01-2022 14:08-0400 Body height 180.34 cm [...] 26.4 kg/m2 Dr. Xiang Rogers Work Phone: [facility] [...] 07-18-2021 12:52-0400 Body temperature 98.01 [degF] Gab Pendlebury [employer]ICATION[employer] SERGEANT.TANK FILLER Work Phone: [facility] 07-18-2021 12:52-0400 Body weight 88 kg Gab Pendlebury [employer]ICATIONS SERGEANT.TANK FILLER Work Phone: [facility] 07-18-2021 12:52-0400 Diastolic blood pressure 74 mm[Hg] Gab Pendlebury [employer] COMM[employer]ICATIONS SERGEANT.TANK FILLER Work Phone: [facility] 07-18-2021 12:52-0400 Heart rate 100 /min Gab Pendlebury [employer] COMM[employer]ICATIONS SERGEANT.TANK FILLER Work Phone: [facility] 07-18-2021 12:52-0400 Respiratory rate 18 /min Gab Pendlebury [employer] COMM[employer]ICATION[employer] SERGEANT.TANK FILLER Work Phone: [facility] 07-18-2021 12:52-0400 SaO2% (BldA) [Mass fraction] 96 % Gab Pendlebury [employer] COMM[employer]ICATION[employer] SERGEANT.TANK FILLER Work Phone: [facility] 07-18-2021 12:52-0400 Systolic blood pressure 122 mm[Hg] Gab Pendlebury [employer] COMM[employer]ICATION[employer] SERGEANT.TANK FILLER Work Phone: [facility] 06-13-2021 13:57-0500 Body temperature 97.8 [degF] [...] Encounter Type Care Provider Facility Start: 11-10-2024 Evaluation and manag ement of inpatient Dr. Xiang Rogers DO Work Phone: -Progressive Care Unit Start: 11-10-2024 Dr. Corazon Diaz MD - [facility] Work Phone: Start: 11-10-2024 End: 11-10-[address] Xiang Rogers DO Work Phone: -[facility] Start: 11-10-2024 End: 11-10-2024 Leah GARSIA -[facility] Work Phone: Start: 11-04-2024 End: 11-04-2024 Dr. Xiang Will DO -[facility] Work Phone: Start: 11-04-2024 End: 11-04-[address] Xiang Rogers DO Work Phone: -[facility] Start: 11-03-2024 End: 11-03-2024 Magaly DEVINE -[facility] Work Phone: Start: 11-03-2024 End: 11-03-[address] Xiang Rogers DO Work Phone: -[facility] Start: 10-26-2024 End: 10-27-2024 Dr. Xiang [...] System Start: 09-27-2024 End: 09-27-2024 Magaly DEVINE -[facility] Work Phone: Start: 09-27-2024 End: 09-27-[address] Xiang Rogers DO Work Phone: [facility] Work Phone: Start: 09-21-2024 Dr. Donna Wolff MD -[facility] Work Phone: Start: 09-20-2024 Dr. Seth morales DO -[facility] Work Phone: Start: 09-19-2024 ambulatory Xiang Rogers Facilit y:[facility] Start: 09-19-2024 Dr. Seth morales DO -[facility] Work Phone: Start: 09-18-2024 End: 09-21-2024 ambulatory Clinton Rustroseanna Facility:[facility] Start: 09-18-2024 End: 09-21-2024 Evaluation and management of inpatient Dr. Xiang Rogers DO Work Phone: [facility] Work Phone: Start: 09-18-2024 End: 09-21-2024 Dr. Clinton Soares DO -Progressive Care Unit Work Phone: Start: 09-08-2024 End: 09-08-[address] Xiang Rogers DO Work Phone: [facility] Work Phone: Start: 09-08-2024 End: 09-08-2024 Dr. Saúl Flowers MD -[facility] Start: 09-08-2024 End: 09-08-2024 ambulatory Lubna Manley Facility:[facility] Start: 08-02-2024 End: 08-02-2024 Dr. Xiang Will DO -[facility] Work Phone: Start: 08-02-2024 End: 08-02-2024 ambulatory Xiang Rogers Facility:[facility] Start: 07-29-2024 End: 07-29-2024 Dr. Lawson [facility] Work [facility] Start: 07-29-2024 End: 07-29-2024 Emergency department patient visit Lawson Castellon Facility:[facility] Start: 07-14-2024 End: 07-14-2024 Lubna DEVINE -[facility] Work Phone: Start: 07-14-2024 End: 07-14-2024 ambulatory Xiang Rogers Facility:[facility] Start: 07-12-2024 End: 07-12-2024 Ronit PÉREZC -[facility] Work Phone: Start: 07-12-2024 End: 07-12-2024 ambulatory Xiang Rogers Facility:[facility] Start: 06-20-2024 ambulatory Calos Quinn Facility:[facility] Start: 06-20-2024 Dr. Seth morales DO -[facility] Work Phone: Start: 06-20-2024 Dr. Calos Quinn MD -[facility] Start: 06-19-2024 Dr. Alexandru Mckeon MD [facility] Start: 06-19-2024 Dr. Donna Wolff MD -[facility] Work Phone: Start: 06-18-2024 ambulatory [...] Saldana -[facility] Start: 06-15-2024 Magaly DEVINE -[facility] Start: 06-13-2024 Non-patient / Non-visit Dr. Saúl talbert MD -[facility] Start: 06-13-2024 End: 06-13-[address] Xiang Rogers DO Work Phone: [facility] Work Phone: Start: 06-13-2024 End: 06-13-2024 Patient encounter procedure Lubna DEVINE -[facility] Work Phone: Start: 06-13-2024 End: 06-13-2024 Dr. Saúl Flowers MD -[facility] Start: 06-13-2024 End: 06-13-2024 ambulatory Lubna Manley Facility:[facility] Start: 06-07-2024 ambulatory Kimberli Mora [employer] Facil ity:[facility] Start: 05-21-2024 End: 05-21-2024 Dr. Saúl Aguilar DO -Emergency Departme nt Work Phone: Start: 05-21-2024 End: 05-21-2024 Emergency department patient visit Dr. Saúl Aguilar DO -Emergency Department Work Phone: Start: 05-17-2024 End: 05-17-2024 Patient encounter procedure Lubna DEVINE -[facility] Work Phone: Start: 05-17-2024 End: 05-17-2024 Lubna DEVINE -[facility] Work Phone: Start: 05-17-2024 End: 05-17-2024 ambulatory Xiang Rogers Facility:[facility] Start: 05-09-2024 ambulatory Calos Quinn Facility:[facility] Start: 05-09-2024 Non-patient / Non-visit Dr. Ren [facility] Start: 05-09-2024 End: 05-09-2024 Patient encounter procedure Magaly DEVINE -[facility] Work Phone: Start: 05-09-2024 End: 05-09-2024 ambulatory Magaly DEVINE Facility:[facility] Start: 05-03-2024 End: 05-03-[address] Xiang Will DO -[facility] Work Phone: Start: 05-03-2024 End: 01-28-2025 ambulatory Xiang Rogers Facility:[facility] Start: 04-20-2024 ambulatory Saúl Flowers Facility:[facility] Start: 04-20-2024 Non-patient / Non-visit Dr. Saúl talbert MD -[facility] Start: 04-20-2024 End: 04-20-2024 Admission to same day surgery center Dr. Saúl Flowers MD -Water Pollution Control Technician/Special Procedures Work Phone: Start: 04-20-2024 End: 04-20-2024 ambulatory [facility] Facility:[facility] Start: 04-08-2024 End: 04-08-2024 Patient encounter procedure Lubna Manley [facility] V[facility] Work Phone: Start: 04-08-2024 End: 04-08-2024 ambulatory [facility] Facility:[facility] Start: 04-01-2024 End: 04-01-2024 Patient encounter procedure Magaly DVEINE -[facility] Work Phone: Start: 04-01-2024 End: 04-01-2024 ambulatory Xiang Rogers Facility:[facility] Start: 03-29-2024 End: 03-29-2024 Patient encounter procedure Lubna DEVINE -[facility] Work [facility]: Start: 03-29-2024 End: 03-29-2024 ambulatory Lubna Manley Facility:[facility] Start: 03-22-2024 End: 03-22-2024 Patient encounter procedure Lubna DEVINE [facility] Work Phone: Start: 03-22-2024 End: 03-22-2024 ambulatory Xaing Rogers Facility:[facility] Start: 03-09-2024 ambulatory Jose Small Facili ty:[facility] Start: 03-09-2024 Non-patient / Non-visit Dr. Saúl talbert MD -[facility] Start: 03-09-2024 End: 03-09-2024 Patient encounter procedure Jose Small DPM -Cardiovascular Services Work Phone: Start: 03-09-2024 End: 03-09-2024 ambulatory Jose Small Facility:[facility] Start: 02-24-2024 End: 02-24-[address] Xiang Will DO -[facility] Work Phone: Start: 02-24-2024 End: 02-24-2024 ambulatory Xiang Rogers Facility:[facility] Start: 02-24-2024 End: 02-24-2024 Patient encounter procedure Lubna DEVINE -[facility] Work Phone: Start: 02-24-2024 End: 02-24-2024 ambulatory Xiang Rogers Facility:[facility] Start: 02-23-2024 End: 02-23-2024 ambulatory Ronit Galvez NP Facility:[facility] Start: 01-27-2024 ambulatory Xiang Rogers Facilit y:[facility] Start: 01-07-2024 End: 01-07-2024 ambulatory Xiang Rogers Facility:[facility] Start: 12-31-2023 End: 12-31-2023 Office outpatient visit 25 minutes Gab Culver APRN.TANK FILLER Work Phone: [facility] Comment on above: Sinobronchitis (Prim jagjit Dx) Start: 11-13-2023 ambulatory Xiang Rogers Facilit y:[facility] Start: 11-13-2023 End: 11-13-2023 ambulatory Xiang Rogers Facility:[facility] Start: 06-02-2023 End: 06-02-[address] Xiang Rogers Work Phone: [facility] Work Phone: Start: 06-02-2023 End: 06-02-[address] Xiang Rogers Work Phone: [facility] Work Phone: Start: 05-24-2023 End: 05-24-2023 [...] encounter procedure Dr. Xiang Rogers Work Phone: [facility] Work Phone: Start: 01-26-2023 End: 01-26-[address] Xiang Rogers Work Phone: [facility] Work Phone: Start: 01-13-2023 End: 01-13-[address] Xiang Rogers Work Phone: [facility] Work Phone: Start: 06-02-2022 End: 06-02-2022 ambulatory [...] encounter procedure Dr. Xiang Rogers Work Phone: [facility] Start: 04-24-2022 End: 04-24-[address] Xiang Rogers Work Phone: [facility] Start: 04-21-2022 Non-patient / Non-visit Dr. Velazquez Work Phone: [facility] Start: 04-19-2022 Non-patient / Non-visit Dr. Velazquez Work Phone: [facility] Start: 04-19-2022 Non-patient / Non-visit Dr. Velazquez Work Phone: [facility] Inpatient Physicians Start: 04-18-2022 Non-patient / Non-visit Dr. Velazquez Work Phone: [facility] Start: 04-18-2022 End: 04-19-2022 Evaluation and management of inpatient Dr. Xiang Rogers Work Phone: [facility] Start: 04-09-2022 End: 04-09-[address] Xiang Rogers Work Phone: [facility] Start: 03-11-2022 End: 03-11-[address] Xiang Rogers Work Phone: [facility] Work Phone: Start: 03-11-2022 End: 03-11-[address] Xiang Rogers Work Phone: [facility] Start: 03-01-2022 End: 03-01-2022 Emergency department patient visit Dr. Xiang Rogers Work Phone: [facility]-Emergency Department Start: 02-04-2022 End: 02-04-2022 ambulatory YAMILKA PAREKH Facility:[facility] Start: 02-04-2022 End: 02-04-2022 Patient encounter procedure Yamilka Parekh MD Work Phone: General Surgery Comment on above: Recurrent left ingui nal hernia (Primary Dx) Start: 01-28-2022 End: 01-28-2022 ambulatory YAMILKA PAREKH Facility:[facility] Start: 01-28-2022 End: 01-28-2022 Patient encounter procedure Yamilka Parekh MD Work Phone: General Surgery Comment on above: Left groin pain (Ruchi frantz Dx) Start: 01-28-2022 End: 01-28-2022 Subsequent hospital visit by physician [facility] (I-Stat) Work Phone: Cat Scan Comment on above: Left groin pain [R10 .32] Start: 01-08-2022 Non-patient / Non-visit Dr. Velazquez Work Phone: [facility] Start: 01-06-2022 End: 01-06-2022 ambulatory YAMILKA PAREKH Facility:[facility] Start: 01-06-2022 End: 01-06-2022 Patient encounter procedure Yamilka Parekh MD Work Phone: General Surgery Comment on above: Left groin pain (Ruchi frantz Dx) Start: 01-01-2022 End: 01-01-[address] Xiang Rogers Work Phone: [facility] Work Phone: Start: 01-01-2022 End: 01-01-[address] Xiang Rogers Work Phone: [facility] Start: 12-08-2021 End: 12-09-2021 Emergency department patient visit Dr. Xiang Rogers Work Phone: [facility] Start: 09-18-2021 End: 09-18-[address] Xiang Rogers Work Phone: [facility] Start: 07-18-2021 End: 07-19-2021 Emergency department patient visit Dr. Xiang Rogers Work Phone: [facility] Start: 07-18-2021 End: 07-18-2021 ambulatory YAMILKA PAREKH Facility:[facility] Start: 07-18-2021 End: 07-18-2021 Patient encounter procedure Gab Culver APRN.CNP Work Phone: [facility] Comment on above: URI with cough and c ongestion (Primary Dx) Start: 06-13-2021 End: 06-13-[address] Xiang Rogers Work Phone: [facility] Start: 04-01-2021 End: 04-01-2021 ambulatory YAMILKAColton PAREKH [facility] Procedures Date Procedure Procedure Detail Performing Clinician Start: 11-10-2024 X-ray of chest, PA a nd lateral views Dr. Xiang Rogers DO Work Phone: Start: 11-10-2024 Blood count smear mc rscp w/mnl difrntl wbc count Dr. Xiang Rogers DO Work Phone: Start: 11-10-2024 Mean corpuscular hemoglobin concentration determination Dr. Xiang Rogers DO Work Phone: Start: 11-10-2024 Nucleated red blood cell count procedure Dr. Xiang Rogers DO Work Phone: Start: 11-10-2024 Platelet mean volume determination Dr. Xiang Rogers DO Work Phone: Start: 11-10-2024 Dr. Latoya Rogers DO Work Phone: Start: 10-27-2024 Urine microscopy: re d cells [...] Adult depression scr eening assessment Gab Culver [employer] COMM[employer]ICATIONS SERGEANT.TANK FILLER Work Phone: Start: 04-06-2006 History of coronary [...] DTaP,Tdap,Td Vaccine (3 - Td or Tdap) [facility] Start: 11-10-2024 Gas panel - Arterial blood [facility] Start: 11-10-2024 Verification routine [place] Start: 11-10-2024 Admission procedure [facility] Start: 11-10-2024 Hospital admission, emergency, from emergency room, medical nature [facility] Start: 11-10-2024 [facility] Start: 10-27-2024 [facility] Start: 10-23-2024 [facility] Start: 10-21-2024 [facility] Start: 10-19-2024 [facility] Start: 09-21-2024 Patient discharge [facility] Start: 09-20-2024 [facility] Start: 09-19-2024 [facility] Start: 09-18-2024 Following clinical pathway protocol [facility] Start: 09-18-2024 Referral to service [facility] Start: 09-18-2024 End: 09-18-2024 [facility] Start: 09-18-2024 Hospital admission, emergency, from emergency room, medical nature [facility] Start: 09-18-2024 Verification routine [place] Start: 09-18-2024 Admission procedure [facility] Start: 09-18-2024 [facility] Start: 09-18-2024 Inhalation therapy procedure [facility] Start: 07-29-2024 [facility] Start: 07-29-2024 End: 07-29-2024 [facility] Start: 06-20-2024 Patient discharge [facility] Start: 06-19-2024 [facility] Start: 06-19-2024 [facility] Start: 06-18-2024 Assessment of risk o [...] [facility] Start: 06-18-2024 Referral to marketing performance analyst [facility] Start: 06-18-2024 Referral to service [facility] Start: 06-18-2024 Tobacco use cessatio n education [facility] Start: 06-18-2024 Vital signs measurements [facility] Start: 06-18-2024 End: 06-18-2024 [facility] Start: 06-18-2024 Following clinical pathway protocol [facility] Start: 06-18-2024 End: 06-18-2024 Admission procedure [facility] Start: 06-18-2024 Dual pressure sponta neous ventilation support [facility] Start: 06-18-2024 Consultation [facility] Start: 06-18-2024 Inhalation therapy procedure [facility] Start: 06-17-2024 End: 06-18-2024 [facility] Start: 06-11-2024 Urine microalbumin profile DTaP,Tdap,Td Vaccine (2 - Td or Tdap) [facility] Start: 05-21-2024 [facility] Start: 05-21-2024 Airborne precautions [place] Start: 05-09-2024 Echo tthrc r-t 2d w/wom-mode compl spec&colr d TTE W/DOPPLER COMPLETE [facility] Start: 04-20-2024 Patient discharge [facility] Start: 12-06-2023 Covid-19 Vaccine ( season) Covid-19 Vaccine ( season) [facility] Start: 12-06-2023 Influenza vaccination Influenza Vacc ine (#1) [facility] Start: 05-24-2023 Incision & drainage abscess simple/single I&D ABSCESS SIMPLE/SINGLE [facility] Start: 05-24-2023 [facility] Start: 04-25-2023 [facility] Start: 12-05-2022 Influenza vaccination Influenza Vacc ine (#1) [facility] Start: 05-23-2022 Patient referral [facility] Work Phone: Start: 04-21-2022 Patient referral [facility] Work Phone: Start: 04-19-2022 Patient discharge [facility] Start: 04-18-2022 Patient discharge [facility] Start: 04-18-2022 End: 04-18-2022 Provision of activity privileges [facility] Start: 04-18-2022 Scheduling [facility] Start: 04-18-2022 Vascular disease ris k assessment [facility] Start: 04-18-2022 End: 04-18-2022 Notification of physician [facility] Start: 04-18-2022 Patient education [facility] Start: 04-18-2022 Pulse taking [facility] Start: 04-18-2022 End: 04-18-2022 Taking patient vital signs [facility] Start: 04-18-2022 Wound care [facility] Start: 04-18-2022 End: 04-18-2022 [facility] Start: 04-18-2022 Catheterization of vein [facility] Start: 04-18-2022 Medication not administered [facility] Start: 04-18-2022 Notification of physician [facility] Start: 04-18-2022 [facility] Start: 04-18-2022 Following clinical pathway protocol [facility] [...] [facility] Start: 04-18-2022 Referral to marketing performance analyst [facility] Start: 04-18-2022 Referral to occupati onal therapist [facility] Start: 04-18-2022 Referral to service [facility] Start: 04-18-2022 Tobacco use cessatio n education [facility] Start: 04-18-2022 [facility] Start: 04-18-2022 Verification routine [place] Work Phone: Start: 04-18-2022 Admission procedure [facility] Start: 04-18-2022 [facility] Work Phone: Start: 04-06-2022 Depression [facility] Start: 12-05-2021 Influenza vaccination C [facility] Start: 04-06-2021 [facility] Start: 06-06-2020 PROSTATE CANCER SCRE ENING DISCUSSION PROSTATE CANCER SCREENING DISCUSSION [facility] Start: 06-06-2020 Prostate specific an tigen measurement Prostate Cancer Screening Discussion [facility] Start: 2020 Hepatitis B Vaccine (1 of 3 - Risk 3-dose series) Hepatitis B Vaccine (1 of 3 - Risk 3-dose series) [facility] Start: 2020 RSV Vaccine (1 - 1-d ose 60+ series) RSV Vaccine (1 - 1-dose 60+ series) [facility] Start: 2020 RSV Vaccine (1 - Ris k 60-74 years 1-dose series) RSV Vaccine (1 - Risk 60-74 years 1-dose series) [facility] Start: 06-18-2019 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 DISEASE VISIT ANNUAL PCP TEAM CHRONIC DISEASE VISIT [facility] Start: 12-23-2017 Adult depression screening assessment DEPRESSION SCREENING [facility] Start: 01-13-2017 3 comp foot exam completed DIABETIC FOOT EXAM [facility] Start: 01-13-2017 Diabetic foot examination Diabetic F oot Exam [facility] Start: 01-13-2017 Hepatitis B surface antibody level LDL CHOLESTEROL [facility] Start: 10-08-2016 PNEUMOCOCCAL (2 - PCV) PNEUMOCOCCAL (2 - PCV) [facility] Start: 10-08-2016 Pneumococcal vaccination [facility] Start: 04-15-2016 Hemoglobin A1c measurement HbA1C [facility] Start: 04-15-2016 Hemoglobin A1c/Hemoglobin.total in Blood HBA1C [facility] Start: 01-22-2015 Influenza vaccination LUNG CANCER SC REENING [facility] Start: 01-22-2010 Influenza vaccination LUNG CANCER SC [facility] Start: 01-22-2010 Screening for malign ant neoplasm of lung Lung Cancer Screening [facility] Start: 01-22-2010 SHINGRIX VACCINE (1 of 2) NOVA GRIX VACCINE (1 of 2) [facility] Start: 01-22-2005 COLOGUARD (FIT-DNA) COLOGUARD (FIT-D NA) [facility] Start: 01-22-2005 Colonoscopy COLONOSCOPY [facility] Start: 01-22-2005 COLORECTAL CANCER SCREENING COLORECTAL CANCER SCREENING [facility] Start: 01-22-[address] COLONOGRAPHY [facility] Start: 01-22-2005 FECAL OCCULT BLOOD FECAL OCCULT BLOO D [facility] Start: 01-22-2005 Screening for malign ant neoplasm of colon [facility] Start: 01-22-2005 SIGMOIDOSCOPY SIGMOIDOSCOPY [facility] Start: 01-22-1979 Urine microalbumin profile DTAP,TDAP,TD (1 - Tdap) [facility] Start: 01-22-1978 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 DISEASE VISIT ANNUAL PCP TEAM CHRONIC DISEASE VISIT [facility] Start: 01-22-1978 Anxiety Screening Anxiety Screening [facility] Start: 01-22-1978 Depression Screening Depression Scre ening [facility] Start: 01-22-1978 HIV SCREENING HIV SCREENING [facility] Start: 01-22-1978 HIV screening HIV Screening [facility] Start: 01-22-1970 Glaucoma screening Dilated Retinal E xam [facility] Start: 01-22-1970 Hepatitis B screening URINE ALBUMIN:CREATININE RATIO [facility] Start: 01-22-1970 Hepatitis C antibody , confirmatory test DILATED RETINAL EXAM [facility] Start: 01-22-1965 COVID-19 VACCINE (1) COVID-19 VACCIN E (1) [facility] Start: 1960 COVID-19 VACCINE (#1) COVID-19 VACCI NE (#1) [facility] End: 02-05-2023 Ct pelvis w/o contrast material CT PELVIS WO IVCON Radiology Routine Left groin pain 1 Occurrences starting 01/06/2022 until 02/05/2023 [facility] Work Phone: Comment on above: 1 Occurrences starti ng 01/06/2022 until 02/05/2023 Hemoglobin A1c/Hemoglobin.total in Blood [facility] Work Phone: Hemoglobin A1c/Hemoglobin.total in Blood [facility] Lipid 1996 panel - S belinda or Plasma [facility] Patient Education [facility] Work Phone: Patient referral [facility] Work Phone: Troponin T.cardiac [Mass/volume] in Serum or Plasma by High sensitivity method [facility] US Carotid arteries [facility] US Heart limited [facility] Immunizations Immunization Date Immunization Notes Care Provider Fa cility 04-25-2023 tetanus toxoid, redu jesse diphtheria toxoid, and acellular pertussis vaccine, adsorbed Dr. 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 Xiang Rogers Work Phone: [facility] Payers Date Payer Category Payer Self-pay [id number] 2023 Unknown [id number] 2023 Unknown NEVILLE LOZADA TIA X [id number] 2023-Present [phone] [address] [address] [place] [address] [facility] [id number] 2023 Unknown [id number] 2020 Medicaid [employer] [id number] 2020-Present [phone] [address] [place] [address] Medicaid [id number] 2020 Medicaid [id number]. [id number] 2020 Unknown [id number] 2014 Unknown R TEGAN [address] [id number] Unknown [id number] Unknown [id number] 2.16.840.1.692649.3.579.2.462 Unknown [id number] 2.16.840.1.949493.3.579.2.462 Unknown [id number] 2.16.840.1.437406.3.579.2.462 Unknown [id number] 2.16.840.1.993688.3.579.2.462 Unknown [id number] 2.16.840.1.101944.3.579.2.462 Unknown [id number] 2.16.840.1.911627.3.579.2.462 Unknown [id number] 2.16.840.1.181977.3.579.2.462 Unknown [id number] 2.16.840.1.971301.3.579.2.462 Unknown [id number] 2.16.840.1.169739.3.579.2.462 Unknown [id number] 2.16.840.1.389993.3.579.2.462 Unknown [id number] 2.16.840.1.815492.3.579.2.462 Unknown [id number] 2.16.840.1.150986.3.579.2.462 Unknown [id number] 2.16.840.1.367100.3.579.2.462 Unknown [id number] 2.16.840.1.708245.3.579.2.462 Unknown [id number] 2.16.840.1.659231.3.579.2.462 Unknown [id number] 2.16.840.1.017973.3.579.2.462 Unknown [id number] 2.16.840.1.945175.3.579.2.462 Unknown [id number] 2.16840.1.280885.3.579.2.462 Unknown [id number] 2.16840.1.693197.3.579.2.462 Unknown [id number] 2.16.840.1.219564.3.579.2.462 Unknown [id number] 2.16.840.1.145522.3.579.2.462 Unknown [id number] 2.16840.1.558605.3.579.2.462 Unknown [id number] 2.16.840.1.204628.3.579.2.462 Unknown [id number] 2.16.840.1.484402.3.579.2.462 Unknown [id number] 2.16.840.1.616553.3.579.2.462 Unknown [id number] 2.16.840.1.460346.3.579.2.462 Unknown [id number] 2.16.840.1.573054.3.579.2.462 Unknown [id number] 2.16.840.1.805027.3.579.2.462 Unknown [id number] 2.16.840.1.043618.3.579.2.462 Unknown [id number] 2.16.840.1.775674.3.579.2.462 Unknown [id number] 2.16.840.1.790632.3.579.2.462 Unknown [id number] 2.16.840.1.149198.3.579.2.462 Unknown [id number] 2.16.840.1.425862.3.579.2.462 Unknown [id number] 2.16.840.1.345419.3.579.2.462 Unknown [id number] 2.16.840.1.162428.3.579.2.462 Unknown [id number] 2.16.840.1.672153.3.579.2.462 Unknown [id number] 2.16.840.1.536479.3.579.2.462 Unknown [id number] 2.16.840.1.701896.3.579.2.462 Unknown [id number] 2.16.840.1.567110.3.579.2.462 Unknown [id number] 2.16.840.1.207207.3.579.2.462 Unknown [id number] 2.16.840.1.772818.3.579.2.462 Unknown [id number] 2.16.840.1.919025.3.579.2.462 Unknown [id number] 2.16.840.1.819839.3.579.2.462 Unknown [id number] 2.16.840.1.706581.3.579.2.462 Unknown [id number] 2.16.840.1.614165.3.579.2.462 Unknown [id number] 2.16.840.1.350367.3.579.2.462 Unknown [id number] 2.16.840.1.165606.3.579.2.462 Unknown [id number] 2.16.840.1.506966.3.579.2.462 Unknown [id number] 2.16.840.1.237498.3.579.2.462 Unknown [id number] 2.16.840.1.812555.3.579.2.462 Unknown [id number] 2.16.840.1.841981.3.579.2.462 Unknown [id number] 2.16.840.1.497263.3.579.2.462 Unknown [id number] 2.16.840.1.586648.3.579.2.462 Social History Date Type Detail Facility Start: 01-06-2022 End: 12-31-2023 Tobacco smoking status NHIS Smokes tobacco daily [facility] Work Phone: History of tobacco use Cigarette Smoker C [facility] Start: 07-18-2021 End: 12-31-2023 Alcohol intake Current non-drinker of alcohol (finding) [facility] Start: 1960 Sex Assigned At Not on file [facility] Start: 07-08-2021 End: 02-04-2022 Exposure to SARS-CoV-2 (event) Not sure [facility] Start: 07-18-2021 End: 06-02-2023 Tobacco smoking status WYIS Unknown if ever smoked [facility] Start: 04-12-2019 None [facility] Start: 04-12-2019 Spouse/ Signif icant Other [facility] Start: 08-11-2020 Cigarettes [facility] Start: 1960 Sex Assigned At Male [facility] Start: 01-06-2022 End: 05-02-2022 Cigarettes smoked current (pack per day) - Reported 2 [facility] Start: 01-06-2022 End: 12-31-2023 Tobacco use and exposure Smokeless tobacco non-user [facility] Start: 01-06-2022 Tobacco Comment started at age 14 [facility] Start: 01-28-2022 End: 05-02-2022 Tobacco use panel [facility] National Score (1-10 0), lower number is lower risk Not on file [facility] Start: 06-17-2024 End: 10-21-2024 Tobacco smoking status WYIS Current Heavy tobacco smoker [facility] Start: 06-23-2024 Sex Male (finding) [facility] Start: 10-23-2024 End: 11-10-2024 Tobacco smoking status [facility] Current Light tobacco smoker [facility] Medical Equipment Procedure Code Equipment Code Equipment Origin al Text Equipment Identifier Dates [id number], [id number], [id number] Start: 01-21-2016 Comment on above: Test blood [...] 04-02-2021 Pen Needle, Diabetic (Comfort Ez Pen [place]) 31 gauge x 5/16 needle Start: 10-28-2023 [...] System Work Phone: 09-19-2024 Functional status None [facility] Work Phone: 06-20-2024 Functional status Chair [facility] Work Phone: 04-19-2022 Functional status Ambulates;Up [facility] Work Phone: Mental Status Date Assessment Result Facility 10-26-2024 Cognitive function Awake;Alert;A ppropriate;Follow s Commands [facility] Work Phone: 10-19-2024 Cognitive function Voice/Name [facility] Work Phone: 09-21-2024 Cognitive function Voice/Name [facility] Work Phone: 09-18-2024 Cognitive function Voice/Name [facility] Work Phone: 07-29-2024 Cognitive function Voice/Name [facility] Work Phone: 06-20-2024 Cognitive function Voice/Name [facility] Work Phone: 04-19-2022 Cognitive function Voice/Name [facility] Work Phone: 04-18-2022 Cognitive function Voice/Name [facility] Work Phone: 07-18-2021 Cognitive function Level Of Cons ciousness Awake;Alert;Appropriate [facility] Work Phone: Clinical Notes 06-11-2018 to 11-10-2024 Note Date & Type Note Facility 11-10-2024 Radiology Diagnostic study note [facility] 11-10-2024 Discharge summary Note Date/Time November 10, 2024 7:26pm [facility] Medical Records Department [address] [place] [address] Emergency Department Summary 11/10/24 MR#: [id number] Acct: [id number] Name: JAYLEN MEJIA Hannah . Rep #:[id number] : 1960 64 From: Bishop whalen DO PCP: Dr. Xiang Rogers, DO Status:RE G ER Location: ED HPI History of Present Illness Chief Complaint: Shortness of Breath Narrative Narrative: Chief complaint and HPI: Shortness of breath, cough, peripheral edema. 64-year-old male with multiple comorbidities including CHF, aortic valve stenosis, COPD, DM2, tobacco abuse, CAD status post CABG, HTN, HLD presents for evaluation of shortness of breath, cough, peripheral edema. History taken by patient as well as medical record. Patient was just recently admitted to [facility] for shortness of breath and CHF exacerbation. He states for the past week he has had shortness of breath and productive cough. Also endorses bilateral lower extremity edema and orthopnea. On chart review, patient was seen in the cardiology office yesterday. Does not appear that patient has been taking all of his medications. He was placed on furosemide 40 mg daily. He also saw Dr. Rogers in the office today who was concerned for the peripheral edema and added on spironolactone. Patient states that he developed chest pain earlier today around noon in which she took a nitro. Had relief. Presents today for all of his symptoms. Patient states he has had a 10 pound weight gain in the last week. Denies any fever, chills, abdominal pain, nausea,vomiting. Review of systems: See HPI Medications: As listed on the chart Allergies: As listed on the chart PFSH: Per chart Vital signs: As listed on the chart. Reviewed. Physical exam: Gen: A&O x3, NAD Head: Normocephalic, atraumatic Eyes: No sclera icterus, conjunctiva clear ENT: Moist mucous membranes Neck: Trachea midline CV: RRR, no murmurs, +2 pitting peripheral edema of the bilateral lower extremities Resp: Diminished in the bilateral bases, few expiratory scattered wheezing, cough+ GI: Abd soft, non-distended, non-tender, no r/r/g Musc: Full ROM, no deformity Skin: Warm, dry Neuro: Alert, oriented, grossly intact, sensation intact Psych: Cooperative, appropriate mood and affect [facility] Medical History Cardiac LV ejection fraction 30-35% GERD (gastroesophageal reflux disease) Anxiety High blood [...] Nicotine dependence Atherosclerosis of coronary artery of [place] heart without angina pectoris Hyperlipidemia Essential (primary) hypertension Home Medications ?Medication ?Instructions ?Recorded ?Last Taken ?Type blood sugar diagnostic (FreeStyle #50 ea 04/02/21 Unkn own Rx Test strips) blood-glucose meter (FreeStyle #1 ea 04/02/21 Unknown Rx System Kit) lancets 28 gauge (FreeStyle #50 ea 04/02/21 Unknown Rx Lancets) pen needle, diabetic 31 gauge x #100 ea 12/28/21 Unkno wn Rx 06/19 (1st Tier Unifine Pentips Plus) Handicap placard #1 ea 07/22/23 Unknown Rx pen needle, diabetic 31 gauge x #100 ea 10/28/23 Unkno wn Rx 08/19 (Comfort EZ Pen [place]) evolocumab 140 mg/mL subcutaneous 140 mg subcut Q2W ch olesterol #6 mL 05/09/24 09/12/24 Rx pen injector (Wolf SureClick) insulin glargine 100 unit/mL (3 20 unit subcut DAILY D iabetes 06/17/24 09/18/24 History mL) subcutaneous pen (Lantus Solostar U-100 Insulin) omeprazole 20 mg capsule,delayed 20 mg PO DAILY reflux #90 caps 09/13/24 09/18/24 Rx release fluticasone propionate 50 2 spray intranasal DAILY PRN nasal 09/18/24 Unknown History mcg/actuation nasal congestion spray,suspension (Flonase Allergy Relief) nitroglycerin 0.4 mg sublingual 0.4 mg sublingual Q5M PRN 09/27/24 Unknown Rx tablet Cardiac/Chest Pain #25 tabs clindamycin HCl 300 mg capsule 300 mg PO Q8H 10 days # 30 caps 10/23/24 Unknown Rx (Cleocin HCl) ondansetron 4 mg disintegrating 4 mg PO TID PRN nausea and 10/27/24 Unknown Rx tablet vomiting #21 tabs aspirin 81 mg chewable tablet 81 mg PO BREAKFAST preve ntative 11/03/24 Unknown Rx #90 tabs clopidogrel 75 mg tablet 75 mg PO DAILY #90 tabs 10/06 04/30 Unknown Rx dapagliflozin propanediol 10 mg 10 mg PO DAILY diabete s #90 TABLETS 11/03/24 Unknown Rx tablet (Farxiga) ezetimibe 10 mg tablet 10 mg PO DAILY cholesterol # 90 tabs 11/03/24 Unknown Rx furosemide 40 mg tablet 40 mg PO DAILY #90 tabs 10/06 04/30 Unknown Rx albuterol sulfate 90 mcg/actuation 2 puff inhalation Q 4H PRN 11/04/24 Unknown Rx aerosol inhaler shortness of breath or wheez ing #6.7 grams mometasone-formoterol HFA 100 2 puff inhalation BID CO PD #13 11/04/24 Unknown Rx mcg-5 mcg/actuation aerosol grams inhaler (Dulera) spironolactone 25 mg tablet 25 mg PO DAILY diuretic #3 0 tabs 11/04/24 Unknown Rx Allergy/AdvReac Type Severity Reaction Status Date / Time amoxicillin Allergy Angioedema Verified 11/10/24 14:50 lindane Allergy Rash Verified 11/10/24 14:50 Family History Father Asthma Alcoholism Arthritis Heart [...] none EXAM Physical Exam Const Vital Signs: 11/10/24 14:47 11/10/24 15:49 11/10/24 16:17 Temperature 97.6 F L 97.6 F L Temperature Source Oral Oral Pulse Rate 97 96 102 H Respiratory Rate 21 H 16 22 H Respiratory Effort Respiratory Pattern Blood Pressure 106/69 119/67 119/67 Blood Pressure Mean 81 84 84 Pulse Ox 95 93 96 Oxygen Delivery Method Room Air Room Air 11/10/24 16:17 11/10/24 16:19 11/10/24 16:19 Temperature Temperature Source Pulse Rate Respiratory Rate 18 Respiratory Effort Short of Breath Labored Respiratory Pattern Blood Pressure Blood Pressure Mean Pulse Ox 95 Oxygen Delivery Method Room Air Room Air Room Air 11/10/24 17:00 11/10/24 17:20 11/10/24 18:00 Temperature 98.3 F 98.7 F Temperature Source Oral Oral Pulse Rate 94 96 98 Respiratory Rate 18 18 18 Respiratory Effort Respiratory Pattern Normal Blood Pressure 124/64 H 133/79 H Blood Pressure Mean 84 97 Pulse Ox 94 100 Oxygen Delivery Method Room Air MDM MDM MDM Narrative Medical decision making narrative: 64-year-old male with multiple comorbidities including CHF, aortic valve stenosis, COPD, DM2, tobacco abuse, CAD status post CABG, HTN, HLD presents for evaluation of shortness of breath, cough, peripheral edema. History taken by patient as well as medical record. Patient was just recently admitted to [facility] for shortness of breath and CHF exacerbation. Does not appear that patient was taking his medication correctly including Lasix. Was just placed back on furosemide 40 myelograms daily by cardiology. Saw Dr. Rogers in the office today who also added spironolactone. On chart review patient's last echocardiogram was 09/19/2024 in which she has an EF of 35%. Differential diagnosis includes but is not limited to CHF exacerbation, pneumonia, viral illness, ACS. DuoNebs ordered for few expiratory wheezing. Cardiac/respiratoryworkup ordered. CBC unremarkable without leukocytosis or anemia. BMP relatively unremarkable. Troponin 42 and 37. Patient currently not endorsing chest pain. BNP elevated at 9141. Take all of your antibiotics this is increased from 4000 earlier in October. Chest x-ray shows CHF with pulmonary congestion and increased effusions from prior chest x-ray. This was personally reviewed and interpreted by me, ED physician. Radiology in agreement. Patient's symptoms are secondary to a CHF exacerbation. IV Lasix ordered. Patient will warrant admission for diuresis. Patient was updated of all resultsand confirmed understanding of plan. Patient was discussed with hospitalist service who accepted admission. EKG: Interpreted by me/EM physician: EKG shows normal sinus rhythm without any acute ischemic changes. Heart rate 98 Impression: 1 CHF exacerbation Lab Data Labs: Laboratory Results - last 24 hr 11/10/24 11/10/24 16:15 17:53 WBC 8.6 RBC 4.43 L Hgb 13.3 Hct 41.6 MCV 93.9 MCH 30.0 MCHC 32.0 RDW Std Deviation 48.4 H RDW Coeff of Maycol 14.2 Plt Count 336 MPV 9.3 Immature Gran % (Auto) 0.300 Neut % (Auto) 69.7 Lymph % (Auto) 20.2 [place] % (Auto) 8.0 Eos % (Auto) 1.5 Baso % (Auto) 0.3 Absolute Neuts (auto) 6.0 Absolute Lymphs (auto) 1.74 Nucleated RBC % 0 Sodium 136 Potassium 3.7 Chloride 101 Carbon Dioxide 23.1 Anion Gap 12 BUN 24 H Creatinine 1.19 Est GFR (MDRD) Non-Af 68 BUN/Creatinine Ratio 20.3 H Glucose 174 H Calcium 8.8 Troponin T High Sens 42 H D Troponin T Hi Sens 2 Hr 37 H NT pro BNP II 9141 H Radiography Diagnostic Testing: Clinical Impression(s) from Imaging Studies Chest X-Ray 11/10/24 17:00 IMPRESSION: Cardiomegaly with vascular congestion, interstitial edema, and small bibasilar pleural effusions/atelectasis, greater on the right. Increased from prior exam. Reading Location: [id number] Discharge Plan Triage Chief Complaint: Shortness of Breath ED Provider: Bishop Monique Dx/Rx/DC Orders Prescriptions: No Action (DME) Handicap placard See Rx Instructions .Route .MEDSUPPLY Qty: 1 0RF Rx Instructions: Due to COPD, unable to walk 50 yards without assistance, duration 5 years. (DME) pen needle, diabetic [Comfort EZ Pen [place]] 31 gauge x 5/16 needle See Rx Instructions .Route Qty: 100 3RF Rx Instructions: As directed nitroglycerin 0.4 mg tablet, sublingual 0.4 mg Sublingual Q5M PRN (Reason: Cardiac/Chest Pain) Qty: 25 1RF spironolactone 25 mg tablet 25 mg PO DAILY Qty: 30 3RF Patient Comments: PT UNSURE IF HE TAKES THIS MEDICATION, albuterol sulfate 90 mcg/actuation HFA aerosol inhaler 2 puff inhalation Q4H PRN (Reason: shortness of breath or wheezing) Qty: 6.7 1RF Dulera 100-5 mcg/actuation HFA aerosol inhaler 2 puff inhalation BID Qty: 13 1RF furosemide 40 mg tablet 40 mg PO DAILY Qty: 90 3RF clopidogrel 75 mg tablet 75 mg PO DAILY Qty: 90 3RF ezetimibe 10 mg tablet 10 mg PO DAILY Qty: 90 3RF aspirin 81 mg tablet,chewable 81 mg PO BREAKFAST Qty: 90 3RF dapagliflozin propanediol [Farxiga] 10 mg tablet 10 mg PO DAILY Qty: 90 3RF fluticasone propionate [Flonase Allergy Relief] 50 mcg/actuation spray,suspension 2 spray intranasal DAILY PRN (Reason: nasal congestion) Rx Instructions: administer into each nostril insulin glargine [Lantus Solostar U-100 Insulin] 100 unit/mL (3 mL) insulin pen 20 unit subcut DAILY clindamycin HCl [Cleocin HCl] 300 mg capsule 300 mg PO Q8H 10 Days Qty: 30 0RF ondansetron 4 mg tablet,disintegrating 4 mg PO TID PRN (Reason: nausea and vomiting) Qty: 21 0RF (DME) FreeStyle Test Strip See Rx [...] Xiang Rogers DO [Primary Care Provider] - Print Language: Sudanese What to do if you have Problems For any increased pain, shortness of breath, bleeding, nausea or vomiting, chestpain, or any unexpected problems, contact your Primary Care Provider. Call [facility] ([phone]) or report to the closest Emergency Room. Call 911 if necessary. 11/10/241925 <Electronically signed by Bishop Monique DO> Cosigner Signature (if applicable): CC: Dr. Xiang Rogers DO ~ Signed [facility] Work Phone: 1(439) 316-535207-24-2025 Radiology Diagnostic study [facility]07-20-2025 Discharge summary Author Devin Curry [facility] Note Date/Time October 23, 2024 8:44 pm [facility] System Medical Records Department [address] [place] [address] Emergency Department Summary 10/23/24 MR#: [id number] Acct: [id number] Name: JAYLEN MEJIA Sr. Rep #:[id number] : 1960 64 From: Devin Curry MD PCP: Dr. Xiang Rogers, DO Status:RE G ER Location: ED HPI History of Present Illness Chief Complaint: Cellulitis Informant: patient Onset/Context/Timing Onset: Days Context: Gradual Onset Timing: Continuous Current Severity: Mild Maximum Severity: Mild Narrative Narrative: 64-year-old male history of insulin-dependent diabetes, hypertension, ID, COPD, CHF. Recent admission last several weeks for CHF. States has had swelling in his lower extremities but now the red, warm and painful. He said he had breaking of pustules and pus on his legs. He denies any fever or chills. Denies any chest pain or shortness of breath. Prior similar symptoms: No Recent Illness/Hospitalization: Yes PFSH [facility] Medical History GERD (gastroesophageal reflux [...] Nicotine dependence Atherosclerosis of coronary artery of [place] heart without angina pectoris Hyperlipidemia Essential (primary) [...] Unkno wn Rx 08/19 (Comfort EZ Pen [place]) evolocumab 140 mg/mL subcutaneous 140 mg subcut [...] % (Auto) 68.5 Lymph % (Auto) 21.6 [place] % (Auto) 6.1 Eos % (Auto) 3.4 [...] (DME) pen needle, diabetic [Comfort EZ Pen [place]] 31 gauge x 5/16 needle See Rx [...] Referrals: Xiang Rogers, [Primary Care Provider] - 3-5 Days Activity [...] week. Return if feeling worse. Print Language: Sudanese Disposition Disposition: Home, Self Care What to do if you have Problems For any increased pain, shortness of breath, bleeding, nausea or vomiting, chestpain, or any unexpected problems, contact your Primary Care Provider. Call [facility] ([phone]) or report to the closest Emergency Room. Call 911 if necessary. 10/23/242043 <Electronically signed by Devin Curry MD> Cosigner Signature (if applicable): CC: Dr. Xiang Rogers DO ~ Signed [facility] Work Phone: 1(181) 907-130707-20-2025 Hospital Discharge instructionsAdditional Instructions The antibiotic clindamycin [...] if feeling worse.[facility] Work Phone: 1(383) 326-649207-16-2025 Radiology Diagnostic study [facility]07-16-2025 Discharge summary Author Valentín Miller [facility] Note Date/Time October 19, 2024 11:2 1pm [facility] Medical Records Department [address] [place] [address] Emergency Department Summary 10/19/24 MR#: [id number] Acct: [id number] Name: JAYLEN MEJIA Sr. Rep #:[id number] : 1960 64 From: Valentín Saravia PCP: Dr. Xiang Rogers, DO Status:RE G ER Location: ED HPI History of Present Illness Chief Complaint: Chest Pain [facility] Medical History GERD (gastroesophageal reflux [...] Nicotine dependence Atherosclerosis of coronary artery of [place] heart without angina pectoris Hyperlipidemia Essential (primary) [...] Unkno wn Rx 5/16 (Comfort EZ Pen [place]) evolocumab 140 mg/mL subcutaneous 140 mg subcut [...] anterior hypokinesis Factors affecting care: As per [facility] Social determinants of health: smoker History obtained from others: none Consults: none [facility] Narrative: The patient was initially tachycardic with [...] Discharge home This note was generated with Stockle[employer] dictation software. It may contain incorrectwords, spelling, [...] % (Auto) 65.7 Lymph % (Auto) 24.7 [place] % (Auto) 6.1 Eos % (Auto) 3.1 [...] evidence of acute cardiopulmonary disease. Reading Location: [id number] Discharge Plan Triage Chief Complaint: Chest Pain [...] (DME) pen needle, diabetic [Comfort EZ Pen [place]] 31 gauge x 5/16 needle See Rx [...] [Primary Care Provider] - Jose Garcia MD [[facility] Staff - Active Staff] - Activity Restrictions/Additional Instructions: Thank you for trusting us with your care today! Please take prescribed Lasix. Please return to the emergency department if your symptoms change or worsen. Specifically develop worsening chest pain, leg swelling or shortness of breath. Please follow with your primary care physician for further outpatient evaluationand management. Print Language: Sudanese Disposition Disposition: Home, Self Care What to do if you have Problems For any increased pain, shortness of breath, bleeding, nausea or vomiting, chestpain, or any unexpected problems, contact your Primary Care Provider. Call [facility] ([phone]) or report to the closest Emergency Room. Call 911 if necessary. 10/19/24 7208 <Electronically signed by Valentín Miller DO> Cosigner Signature (if applicable): CC: Dr. Xiang Rogers, DO ~ Signed [facility] Work Phone: 1(806) 517-397006-18-2025 Discharge summary Author Donna Wolff [facility] Note Date/Time September 21, 2024 4:22 pm [facility] System Medical Records Department [address] [place] [address] Instructions for Home/Discharge Instructions 09/21/24 1537 MR#: [id number] Acct: [id number] Name: JAYLEN MEJIA . Rep #:[id number] : 1960 64 From: [...] When you eat out, ask that the lead database developer not add any salt to your dish. Don't eat fried or greasy foods. Be careful of bottled beverages. They can contain a lot of salt -Call 911 right away if you have: -Severe shortness of breath, such that you can't catch your breath even while resting -Severe chest pain that does not resolve with rest or nitroglycerin -[place], foamy mucus with cough and shortness of [...] (DME) pen needle, diabetic [Comfort EZ Pen [place]] 31 gauge x 5/16 needle See Rx [...] Week Magaly Abdi PA [Med Staff - [facility] Practice Prof] - Within 2 Weeks Disposition Disposition (needs filled in before D/C Order can be placed): Home, Self Care 09/21/24 1622<Electronically signed by Donna Wolff MD>Donna Wolff MD CC: Dr. Clinton Soares DO; Dr. Xiang Rogers DO; Dr. Seth Carrington DO ~ Signed [facility] Work Phone: 1(571) 929-478906-18-2025 [facility]06-17-2025 Progress note Author Seth Carrington [facility] Note Date/Time September 20, 2024 7:12 pm [facility] Medical Records Department [address] [place] [address] Progress Note - Hospitalist 09/20/24 1910 MR#: [id number] Acct: [id number] Name: ROBERTOJAYLEN L Sr. Rep #:[id number] : 1960 64 From: Seth Carrington DO PCP: Dr. Xiang Rogers DO Status:AD M IN Location: [place] [address] Hospitalist Note Additional note: Per my review [...] 20 mg daily, Zetia 10 mg daily, Nwcgtn75 mg daily. Patient is not taking the following medications: Spironolactone 25 mg daily, Lasix 40 mg twice daily, atorvastatin 80 mg daily, metformin 1000 mg twice daily, Pletal 50 mg daily. 09/20/241911 <Electronically signed by Seth Carrington DO> Cosigner Signature (if applicable): CC: ~ Signed [facility] Work Phone: 1(622) 824-578106-17-2025 Progress [facility] Note Date/Time September 20, 2024 6:38 pm [facility] Medical Records Department [address] [place] [address] Progress Note - Hospitalist 09/19/24 1900 MR#: [id number] Acct: [id number] Name: ROBERTOJAYLEN Hannah Schmitt. Rep #:[id number] : 1960 64 From: Seth Carrington DO PCP: Dr. Xiang Rogers, DO Status:[facility] [place] Location: [place] [address] Reason for Visit Reason for Visit: Diagnoses [...] fraction is 35 %. Normal LV size. [place] : Akinetic. Mid-Anterior : Severely Hypokinetic. Compared [...] 50 minutes Charges/Coding Visit Charges Inpatient E&M: 96455 Subs Hosp L3 09/20/248 <Electronically signed by Seth Carrington DO> Cosigner Signature (if applicable): CC: ~ Signed [facility] Work Phone: 1(876) 469-740506-16-2025 Discharge summary Author Saúl Aguilar [facility] Note Date/Time September 18, 2024 10:3 5pm [facility] Medical Records Department [address] [place] [address] Emergency Department Summary 09/18/24 MR#: [id number] Acct: [id number] Name: JAYLEN MEJIA Sr. Rep #:[id number] : 1960 64 From: Saúl Saravia PCP: Dr. Xiang Rogers DO Status:AD M [facility] History of Present Illness Chief Complaint: Chest [...] Nicotine dependence Atherosclerosis of coronary artery of [place] heart without angina pectoris Hyperlipidemia Essential (primary) [...] Unkno wn Rx 08/19 (Comfort EZ Pen [place]) evolocumab 140 mg/mL subcutaneous 140 mg subcut [...] % (Auto) 61.9 Lymph % (Auto) 27.0 [place] % (Auto) 6.7 Eos % (Auto) 3.7 [...] 10:26 IMPRESSION: No Acute Findings. Reading Location: [facility] Portable 1 view chest x-ray was obtained. [...] asinus tachycardia with a rate of 103. ID interval, QRS interval, and QTc intervals were all normal. [place] was normal. There are nonspecific ST-T wave [...] (DME) pen needle, diabetic [Comfort EZ Pen [place]] 31 gauge x 5/16 needle See Rx [...] Rogers, [Primary Care Provider] - Print Language: Sudanese Disposition Disposition: Acute Care Hospital [facility] What to do if you have Problems For any increased pain, shortness of breath, bleeding, nausea or vomiting, chestpain, or any unexpected problems, contact your Primary Care Provider. Call [facility] ([phone]) or report to the closest Emergency Room. Call 911 if necessary. 09/18/242234 <Electronically signed by Saúl Aguilar DO> Cosigner Signature (if applicable): CC: Dr. Xiang Rogers DO ~ Signed [facility] Work Phone: 1(346) 333-930706-15-2025 History and physical note [facility] Note Date/Time September 18, 2024 2:16 pm [facility] System Medical Records Department [address] [place] [address] H&P Exam - Hospitalist 09/18/24 1339 MR#: [id number] Acct: [id number] Name: JAYLEN MEJIA Sr. Rep #:[id number] : 1960 64 From: Clinton khan DO PCP: Dr. Xiang Rogers DO Status:AD M IN Location: [facility] [id number] HPI - General General Date of Admission: 09/18/24 Date of Service: 09/18/24 Chief Complaint: Shortness of breath and chest discomfort HPI Narrative JAYLEN MEJIA, is a 64 M who presented to [facility] ED on 09/18/2024 with chest pain and volume overload. [facility]. Has [facility] of [...] time. Will be admitted for further management. [facility] Medical History GERD (gastroesophageal reflux [...] Nicotine dependence Atherosclerosis of coronary artery of [place] heart without angina pectoris Hyperlipidemia Essential (primary) hypertension Home Medications ?Medication ?Instructions ?Recorded ?Last Taken ?Type blood sugar diagnostic (FreeStyle #50 ea 04/02/21 Unkn own Rx Test strips) blood-glucose meter (FreeStyle #1 ea 04/02/21 Unknown Rx System Kit) lancets 28 gauge (FreeStyle #50 ea 04/02/21 Unknown Rx Lancets) pen needle, diabetic 31 gauge x #100 ea 04/02/21 Unkno wn Rx 316 (1st Tier Unifine Pentips Plus) nitroglycerin 0.4 [...] Unkno wn Rx 08/19 (Comfort EZ Pen [place]) evolocumab 140 mg/mL subcutaneous 140 mg subcut [...] % (Auto) 61.9, Lymph % (Auto) 27.0, [place]% (Auto) 6.7, Eos % (Auto) 3.7, Baso [...] 10:26 IMPRESSION: No Acute Findings. Reading Location: [id number] Assessment & Plan Assessment/Plan (1) Acute on [...] with A1c values consistently above 10% since [id number]. Repeat A1c ordered. Glucose 184 on admit. [...] 75 minutes. Charges/Coding Visit Charges Inpatient E&M: 26914 Init Hosp L3 09/18/24 1416 <Electronically signed by Clinton Soares DO> Cosigner Signature (if applicable): CC: Dr. Clinton Soares, DO; Dr. Xiang Rogers, DO~ Signed [facility] Work Phone: 1(367) 866-915706-15-2025 Radiology Diagnostic study [facility]04-10-2025 Evaluation note* Diagnosis Onset Date Resolution [...] 18, 2024 1:39pm Aortic valve stenosis acute Tima 2024 9:55am LV dysfunction acute September 27, 2024 9:55am Essential (primary) hypertension chr onic September 27, 2024 9:55am Hyperlipidemia chronic September 27, 2024 9:55am Nicotine dependence chronic September 27, 2024 9:55am Stenosis of right carotid artery chr onic September 27, 2024 9:55am H/O coronary artery bypass surgery 2007 resolved September 27, 2024 9:55am Aortic valve stenosis acute Oct 10:15am LV dysfunction acute [place] 31st, 2025 10:15am Essential (primary) hypertension chr onic November [...] chronic November 1:36pm Lymphorrhea acute November 10, 025 10:05am Acute on chronic HFrEF (hear t failure with reduced ejection fraction) chronic November 10, 2024 10:05am [facility] Work Phone: 1(171) 980-188804-10-2025 Evaluation note* Diagnosis Onset Date Resolution Status [...] chronic November 1:36pm Lymphorrhea acute November 10, 025 10:05am Acute on chronic HFrEF (hear t failure with reduced ejection fraction) chronic November 10, 2024 10:05am 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 November 10, 2024 10:05am Essential (primary) hypertension chr onic November 10, 2024 10:05am Acute HFrEF (heart failure w ith reduced ejection fraction) acute Aug2024 7:21pm [facility] Work Phone: 1([phone]) 635-687704-08-2025 Evaluation note* Diagnosis Onset Date Resolution Status [...] 2024 9:55am [facility] Work Phone: 1(901) 952-347004-08-2025 Evaluation note* Diagnosis Onset Date Resolution Status [...] surgery 2007 resolved November 03, 2024 10:15am [facility] Work Phone: 1([phone]) 200-7630124509-26-7556 [facility]03-15-2025 Evaluation note* Diagnosis Onset Date Resolution [...] 2024 1:39pm [facility] Work Phone: 1(188) 653-773303-15-2025 Evaluation note* Diagnosis Onset Date Resolution Status [...] 18, 2024 1:39pm Aortic valve stenosis acute Tima 2024 9:55am LV dysfunction acute September 27, 2024 9:55am Essential (primary) hypertension chr onic September 27, 2024 9:55am Hyperlipidemia chronic September 27, 2024 9:55am Nicotine dependence chronic September 27, 2024 9:55am Stenosis of right carotid artery chr onic September 27, 2024 9:55am H/O coronary artery bypass surgery 2007 resolved September 27, 2024 9:55am [facility] Work Phone: [phone]) [phone] [facility]02-11-2025 Evaluation note* Diagnosis Onset Date Resolution [...] 2024 11:21am [facility] Work Phone: 1([phone]) 656-494911-20-2024 Evaluation note* Diagnosis Onset Date Resolution Status [...] artery bypass surgery 2007 resolved April 01, 024 9:49am Atherosclerosis of right low er [...] 2024 12:40pm [facility] Work Phone: 1(655) 270-219009-26-2024 History of Present illness Narrative* Gab Culver, BROOKE.TANK FILLER - 12/31/2023 9:33 AM EDT Subjective HPI [...] non-ST elevation myocardial infarction (NSTEMI) 06/11/[address] Herrera Espinosa Hypertension Other emphysema (HCC) [...] of care. This note was generated using Stockleap software. It may contain errors in wording, punctuation, or spelling. Gab Culver APRN.TURNER documented [facility] Hospital Discharge instructions Additional Instructions Your x-ray does not show any broken bones in your foot. Therefore you have a foot contusion which is bruised bones. This will take roughly 1 to 2 weeks to heal. Wear the Sandra wrap for padding and compression and use the crutches as necessary to help with ambulation. If you have any further concerns please return [facility] the [facility] Work Phone: 1(620) 252-943211-01-2022 NoteHNO ID: [id number] Author: Yamilka Parekh MD Service: ? Author [...] non-ST elevation myocardial infarction (NSTEMI) 06/11/[address] Herrera Espinosa Hypertension Other emphysema (HCC) [...] any blood vessels/nerv (more content not included)... [facility]11-01-2022 History of Present illness Narrative* Yamilka [...] non-ST elevation myocardial infarction (NSTEMI) 06/11/[address] Herrera Espinosa Hypertension Other emphysema (HCC) [...] Straightforward Yamilka Parekh MD documented in this encounterC[facility]10-[facility]-2022 NoteHNO ID: [id number] Author: Yamilka Parekh MD Service: ? Author [...] non-ST elevation myocardial infarction (NSTEMI) 06/11/[address] Herrera Espinosa Hypertension Other emphysema (HCC) [...] and completing appropriate m (more content not included)...[facility] History of Present illness Narrative* Yamilka [...] non-ST elevation myocardial infarction (NSTEMI) 06/11/[address] Herrera Espinosa Hypertension Other emphysema (HCC) [...] documentation. Yamilka Parekh MD documented in this encounterC[facility]10-25-2022 NoteHNO ID: [id number] Author: RT Bneji(Suman) Service: ? Author Type: Manager Of Compensation Type: Progress Notes Filed: 01/28/2022 3:01 PM [...] BY: RT Betsy(Suman) January 28, 2022 3:01 [facility]10-25-2022 History of Present illness Narrative* [...] 28, 2022 3:01 PM documented in this encounterC[facility]-2022 NoteHNO ID: [id number] Author: Yamilka Parekh MD Service: ? Author [...] non-ST elevation myocardial infarction (NSTEMI) 06/11/[address] Herrera Espinosa Hypertension Other emphysema (HCC) [...] REVIEW OF SYSTEMS: General: (more content not included)...[facility]10-03-2022 History of Present illness Narrative* Yamilka [...] non-ST elevation myocardial infarction (NSTEMI) 06/11/[address] Herrera Espinosa Hypertension Other emphysema (HCC) [...] entered by the nurse and reviewed by ut Nursing Notes: Allison Haines RN 01/06/2022 9:32 [...] of any pertinent laboratory studies/radiological imaging/medical records, sohf-eu-uvuiskmijnr care, obtaining oral medical history from the patient in this encounter, performing a medically appropriate examination, counseling and educating the patient/family/caregiver, and ordering and/or scheduling of medications/tests/procedures, and completing appropriate medical documentation. Yamilka Parekh MD documented in this encounterC[facility]10-03-2022 Nurse Note* Allison Haines RN - [...] Unknown Allison Haines RN documented in this encounterC[facility]04-14-2022 NoteHNO ID: [id number] Author: Gab Culver APRN.TANK FILLER Service: ? Author Type: Nurse Practitioner Type: [...] type 2 in obese (HCC) - Hyperlipidemia Casting Cleaner Dr. Herrera Espinosa - Hypertension - Pancreatitis [...] He is not diaphoretic (more content not included)...[facility]04-14-20[facility] Instructions* Patient Instructions* Gab Culver APRN.[facility] - 07/18/2021 1:15 PM EDT RESPIRATORY [...] spread by coughs, sneezes, anddirect contact, especially [id number]. A respiratory tract infection usually clears up [...] 102 F (39 C). documented in this encounterC[facility]04-14-2022 History of Present illness Narrative* Gab Culver [...] mellitus type 2 in obese (HCC) Hyperlipidemia Casting Cleaner Dr. Herrera Espinosa Hypertension Pancreatitis Tobacco use [...] of care. This note was generated using Stockleap software. It may contain errors in wording,punctuation, or spelling. Gab Culver APRN.TURNER documented in this encounterC[facility]12-27-2021 NoteHNO ID: [id number] Author: Maxx Owen APRN.TURNER Service: ? Author [...] type 2 in obese (HCC) - Hyperlipidemia Casting Cleaner Dr. Herrera Espinosa - Hypertension - Pancreatitis [...] - Dx: Type 2 DM - Uncontrolled .65 blood sugar diagnostic (BLOOD GLUCOSE TEST) test [...] see if it reli (more content not included)...[facility]03-08-2019 Evaluation note* Diagnosis Onset Date Resolution Status 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 Essential (primary) hypertension chronic History of non-ST elevation myocardial infarction (NSTEMI) June 11, 2018 chronic Insulin dependent diabetes mellitus chronic Nicotine dependence chronic Essential (primary) hypertension chronic Hyperlipidemia chronic Nicotine dependence chronic Stenosis of right carotid artery chronic H/O coronary artery bypass surgery 2007 resolved Non-STEMI (non-ST elevated myocardial infarction) acute 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 Essential (primary) hypertension chronic Insulin dependent diabetes mellitus chronic Nicotine dependence chronic [facility] Work Phone: Evaluation note* Diagnosis URI with cough and congestion- Primary [facility] encounter [facility]* Diagnosis Onset Date Resolution Status [...] H/O coronary artery bypass surgery 2006 resolved [facility] Work Phone: Evaluation [...] quadrant documented [facility] encounter [facility]* Diagnosis Left groin pain- Primary Abdominal pain, left lower quadrant [facility]* Diagnosis Recurrent left inguinal hernia- Primary Inguinal hernia without mention of obstruction or gangrene, recurrent unilateral or unspecified documented [facility] encounter [facility]* Diagnosis Onset Date Resolution Status Essential (primary) hypertension chronic Insulin dependent diabetes mellitus chronic Stenosis of right carotid artery chronic [facility] Work Phone: Evaluation note* Diagnosis Onset Date Resolution Status Essential (primary) hypertension chronic Insulin dependent diabetes mellitus chronic Stenosis of right carotid artery chronic [id number] acute Nicotine dependence chronic [facility] Work Phone: Evaluation note* Diagnosis Onset Date Resolution Status Essential (primary) hypertension chronic Insulin dependent diabetes mellitus chronic Stenosis of right carotid artery chronic [id number] acute Nicotine dependence chronic Essential (primary) hypertension chronic Hyperlipidemia chronic Insulin dependent diabetes mellitus chronic H/O coronary artery bypass surgery 2007 resolved NSTEMI, initial episode of care acute Insulin dependent diabetes mellitus chronic Nicotine dependence chronic [facility] Work Phone: Evaluation note* Diagnosis Onset Date Resolution Status [id number] acute Nicotine dependence chronic Essential (primary) hypertension [...] quadrant [facility] encounter [facility]* Diagnosis Onset Date Resolution Status [...] dependent diabetes mellitus chronic Nicotine dependence chronic [id number] acute Nicotine dependence chronic [facility] Work Phone: Evaluation note* Diagnosis Sinobronchitis- Primary Unspecified sinusitis (chronic) documented in this encounter [facility] HospitalHistory and physical note Author Clinton Soares [facility] Note Date/Time September 18, 2024 2:16 pm [facility] Medical Records Department [address] [place] [address] H&P Exam - Hospitalist 09/18/24 1339 MR#: [id number] Acct: [id number] Name: JAYLEN MEJIA Sr. Rep #:[id number] : 1960 64 From: Clinton khan DO PCP: Dr. Xiang Rogers, DO Status:AD M IN Location: [facility] [id number] HPI - General General Date of Admission: 09/18/24 Date of Service: 09/18/24 Chief Complaint: Shortness of breath and chest discomfort HPI Narrative JAYLEN MEJIA, is a 64 M who presented to [facility] ED on 09/18/2024 with chest pain and volume overload. [facility] Has [facility] of [...] time. Will be admitted for further management. [facility] Medical History GERD (gastroesophageal reflux [...] Nicotine dependence Atherosclerosis of coronary artery of [place] heart without angina pectoris Hyperlipidemia Essential (primary) [...] Unkno wn Rx 08/19 (Comfort EZ Pen [place]) evolocumab 140 mg/mL subcutaneous 140 mg subcut [...] unit/mL (50-50) subcutaneous pen (Humalog Mix 50-50 ShinePen) ondansetron 4 mg disintegrating 4 mg PO [...] % (Auto) 61.9, Lymph % (Auto) 27.0, [place]% (Auto) 6.7, Eos % (Auto) 3.7, Baso [...] 10:26 IMPRESSION: No Acute Findings. Reading Location: [id number] Assessment & Plan Assessment/Plan (1) Acute on [...] with A1c values consistently above 10% since [id number]. Repeat A1c ordered. Glucose 184 on admit. [...] 75 minutes. Charges/Coding Visit Charges Inpatient E&M: 20763 Init Hosp L3 09/18/24 1416 <Electronically signed by Clinton Soares DO> Cosigner Signature (if applicable): CC: Dr. Clinton Soares, ; Dr. Xiang Rogers DO~ Signed [facility] Work Phone: History and physical note Author Corazon Diaz [facility] Note Date/Time November 10, 2024 7:5 6pm [facility] System Medical Records Department [address] [place] [address] H&P Exam - Hospitalist 11/10/24 1930 MR#: [id number] Acct: [id number] Name: JAYLEN MEJIA Sr. Rep #:[id number] : 1960 64 From: Corazon Diaz MD PCP: Dr. Xiang Rogers DO Status:RE G ER Location: ED HPI - General General Date of Admission: 11/10/24 Date of Service: 11/10/24 Chief Complaint: Dyspnea, orthopnea, increased weight gain, increased distal edema. HPI Narrative The patient is a 64 y/o M w/ PMHx: Hx CVA w/ mild facial droop, CKD stage II perGFR trending, HFrEF, GERD, Anxiety and Depression, HTN, HLD, Diabetes mellitus type II, COPD/Asthma, Carotid disease s/p CEA, CAD s/p CABG x 4, Tobacco use whopresents to the [facility] ED on 11/10/2024 with history of recently being initiated on Lasix outpatient approximate 1 week prior taking 2 pills daily in addition to spironolactone however he notes he has been having weight gain as well as increased lower extremity swelling, orthopnea and dyspneaworse with exertion with home health evaluation 11/09/2024 with nurse noting significant venous stasis blistering because of worsening edema prompting eventual ED evaluation to be cautious. From review of records patient did have recent admission with discharge on 09/21/2024 following evaluation and treatment of acute on chronic HFrEF exacerbation. Workup in the ED included T97.6, heart rate 97, BP 106/69, respiratory rate 21, 95% on room air with most recent repeatvitals T98.7, heart rate 98, BP 133/79, respiratory rate 18, 100% room air, CBC with WBC 8.6, hemoglobin 13.3, platelet 336 without marked shift, BMP with BUN/canaille 24/1.19, GFR 68, glucose 174, troponin initial 42 with repeat delta37, NT proBNPII 9141, chest x-ray with cardiomegaly with vascular congestion, interstitial edema and small bibasilar pleural effusions/atelectasis, right greater than left, EKG with sinus rhythm with no acute evidence of ischemia. Inthe ED patient ministered DuoNeb therapy and Lasix 40 mg IV x 1. PFSH Medical History (Updated 11/10/24 @ 19:[address] Corazon Diaz MD) History of CVA (cerebrovascular accident) Cardiac LV ejection fraction 30-35% GERD (gastroesophageal reflux disease) Anxiety High blood [...] Nicotine dependence Atherosclerosis of coronary artery of [place] heart without angina pectoris Hyperlipidemia Essential (primary) [...] Unkno wn Rx 5/16 (Comfort EZ Pen [place]) evolocumab 140 mg/mL subcutaneous 140 mg subcut Q2W ch olesterol #6 mL 05/09/24 09/12/24 Rx pen injector (Repyohannes SureClick) insulin glargine 100 unit/mL (3 20 unit subcut DAILY D iabetes 06/17/24 09/18/24 History mL) subcutaneous pen (Lantus Solostar U-100 Insulin) omeprazole 20 mg capsule,delayed 20 mg PO DAILY reflux #90 caps 09/13/24 09/18/24 Rx release fluticasone propionate 50 2 spray intranasal DAILY PRN nasal 09/18/24 Unknown History mcg/actuation nasal congestion spray,suspension (Flonase Allergy Relief) nitroglycerin 0.4 mg sublingual 0.4 mg sublingual Q5M PRN 09/27/24 Unknown Rx tablet Cardiac/Chest Pain #25 tabs clindamycin HCl 300 mg capsule 300 mg PO Q8H 10 days # 30 caps 10/23/24 Unknown Rx (Cleocin HCl) ondansetron 4 mg disintegrating 4 mg PO TID PRN nausea and 10/27/24 Unknown Rx tablet vomiting #21 tabs aspirin 81 mg chewable tablet 81 mg PO BREAKFAST preve ntative 11/03/24 Unknown Rx #90 tabs clopidogrel 75 mg tablet 75 mg PO DAILY #90 tabs 10/06 04/30 Unknown Rx dapagliflozin propanediol 10 mg 10 mg PO DAILY diabete s #90 TABLETS 11/03/24 Unknown Rx tablet (Farxiga) ezetimibe 10 mg tablet 10 mg PO DAILY cholesterol # 90 tabs 11/03/24 Unknown Rx furosemide 40 mg tablet 40 mg PO DAILY #90 tabs 10/06 04/30 Unknown Rx albuterol sulfate 90 mcg/actuation 2 puff inhalation Q 4H PRN 11/04/24 Unknown Rx aerosol inhaler shortness of breath or wheez ing #6.7 grams mometasone-formoterol HFA 100 2 puff inhalation BID CO PD #13 11/04/24 Unknown Rx mcg-5 mcg/actuation aerosol grams inhaler (Dulera) spironolactone 25 mg tablet 25 mg PO DAILY diuretic #3 0 tabs 11/04/24 Unknown Rx Allergy/AdvReac Type Severity Reaction Status Date / Time amoxicillin Allergy Angioedema Verified 11/10/24 14:50 lindane Allergy Rash Verified 11/10/24 14:50 Family History Father Asthma Alcoholism Arthritis Heart disease Hypertension High cholesterol CVA (cerebral vascular accident) Lung cancer Grandfather Myocardial infarction other (Patient does not know his maternal/maternal family history.) Surgical History S/P CABG x 4 History of hernia repair History of carotid endarterectomy (01/06/14) H/O coronary artery bypass surgery (2006) History of left heart catheterization (06/11/18) Social History (Updated 11/10/24 @ 19:[address] Corazon Diaz MD) household members: none Smoking Status: Light Smoker (<10/day) Tobacco: How many years used: 45 Electronic Cigarette Use: not used second hand exposure: Yes quit status: considering quitting alcohol intake: never substance use type: does not use caffeine: Yes Type: coffee Number of servings: 5 what type of physical activity do you participate in: none ROS ROS Narrative Admission Review of Systems: CONSTITUTIONAL: No weight loss, fever, chills, + weakness or fatigue. HEENT: + History of previous stroke with stable mild facial droop. Eyes: No visual loss, blurred vision, double vision or yellow sclerae. Ears, Nose, Throat: No hearing loss, sneezing, congestion, runny nose or sore throat. SKIN: No itching, lesions except + bilateral lower extremity erythema, stasis blister with serous drainage. CARDIOVASCULAR: + Weight gain, orthopnea, increasing distal edema. No chest pain, chest pressure or chest discomfort, palpitations, syncopal events. RESPIRATORY: + Dyspnea. No marked cough or sputum, wheezing, hemoptysis. GASTROINTESTINAL: No anorexia, nausea, vomiting or diarrhea, abdominal pain, melena, BRBPR. GENITOURINARY: No dysuria, frequency, urgency or retention. NEUROLOGICAL: + History of previous stroke with stable mild facial droop, no headache, dizziness, syncope, paralysis, ataxia, numbness or tingling in the extremities, focal weakness, change in bowel or bladder control, seizure. MUSCULOSKELETAL: + muscle, back pain, joint pain or stiffness. HEMATOLOGIC: No anemia. + Easy bleeding/bruising. LYMPHATICS: No enlarged nodes. No history of splenectomy. PSYCHIATRIC: + History of anxiety and depression. ENDOCRINOLOGIC: No reports of sweating, cold or heat intolerance. No polyuria orpolydipsia. ALLERGIES: + History of asthma, allergic rhinitis, angioedema. Vital Signs Vital Signs Vital Signs: 11/10/24 14:47 11/10/24 15:49 11/10/24 16:17 Temperature 97.6 F L 97.6 F L Temperature Source Oral Oral Pulse Rate 97 96 102 H Respiratory Rate 21 H 16 22 H Respiratory Effort Respiratory Pattern Blood Pressure 106/69 119/67 119/67 Blood Pressure Mean 81 84 84 Pulse Ox 95 93 96 Oxygen Delivery Method Room Air Room Air 11/10/24 16:17 11/10/24 16:19 11/10/24 16:19 Temperature Temperature Source Pulse Rate Respiratory Rate 18 Respiratory Effort Short of Breath Labored Respiratory Pattern Blood Pressure Blood Pressure Mean Pulse Ox 95 Oxygen Delivery Method Room Air Room Air Room Air 11/10/24 17:00 11/10/24 17:20 11/10/24 18:00 Temperature 98.3 F 98.7 F Temperature Source Oral Oral Pulse Rate 94 96 98 Respiratory Rate 18 18 18 Respiratory Effort Respiratory Pattern Normal Blood Pressure 124/64 H 133/79 H Blood Pressure Mean 84 97 Pulse Ox 94 100 Oxygen Delivery Method Room Air Physical Exam Narrative Physical Examination: General: Awake, alert, oriented x 3 and cooperative, seated upright in the ED bed, fatigued, notes increased dyspnea despite recent diuresis but no evidence of distress. Skin: Normal color, normal turgor, no icterus, no cyanosis except significant venous stasis skin changes with stasis blisters, occasional stage ecchymoses andabrasion. HEENT: AT/NC, EOMI, PERRLA, MMM, no carotid bruits, JVD difficult to assess given thick pratt, evident facial droop mildly correcting with smile noted to bechronic per family. Lungs: Significantly diminished, greater bases, mildly increased respiratory rate but no distress, overtly appreciated significant no rales, ronchi or wheezing. Heart: Regular rate and rhythm; no gallop, rub audible. Abdomen: Soft, NTTP, ND, hyperactive BS, no appreciated HSM. Extremities: No cyanosis, no clubbing, significant pedal to proximal thigh bilateral 3+ pitting edema with significant venous stasis skin changes, stasis blisters with serous drainage. Neurological: Patient awake, alert, oriented as noted, cognitive function intact; pupils equally reactive to light and accommodation, cranial nerves grossly normal aside evident facial droop mildly correcting with smile noted to be chronic per family, moving all 4 extremities, no focal deficits, strength moderately to severely globally decreased. Psychiatric: Affect appears fatigued, reports being more dyspneic despite recentdiuresis, no acute evidence of depressive or anxiety feelings but does have underlying history. Results Lab / Micro Data 11/10/24 16:15 11/10/24 16:15 Labs: Laboratory Results - last 24 hr 11/10/24 16:15: WBC 8.6, RBC 4.43 L, Hgb 13.3, Hct 41.6, MCV 93.9, MCH 30.0, MCHC 32.0, RDW Std Deviation 48.4 H, RDW Coeff of Maycol 14.2, Plt Count 336, MPV 9.3, Immature Gran % (Auto) 0.300, Neut % (Auto) 69.7, Lymph % (Auto) 20.2, [place]% (Auto) 8.0, Eos % (Auto) 1.5, Baso % (Auto) 0.3, Absolute Neuts (auto) 6.0, Absolute Lymphs (auto) 1.74, Nucleated RBC % 0, Sodium 136, Potassium 3.7, Chloride 101, Carbon Dioxide 23.1, Anion Gap 12, BUN 24 H, Creatinine 1.19, Est GFR (MDRD) Non-Af 68, BUN/Creatinine Ratio 20.3 H, Glucose 174 H, Calcium 8.8, Troponin T High Sens 42 H D, NT pro BNP II 9141 H 11/10/24 17:53: Troponin T Hi Sens 2 Hr 37 H Micro: Microbiology 11/10/24 16:55 Mucosa - Nose SARS-CoV-2, Influenza & RSV (PCR) - Final Imaging Radiology Impression Chest X-Ray 11/10/24 17:00 IMPRESSION: Cardiomegaly with vascular congestion, interstitial edema, and small bibasilar pleural effusions/atelectasis, greater on the right. Increased from prior exam. Reading Location: [id number] Assessment & Plan Assessment/Plan (1) Acute HFrEF (heart failure with reduced ejection fraction): PLAN: Plan The patient is a 64 y/o M w/ PMHx: Hx CVA w/ mild facial droop, CKD stage II perGFR trending, HFrEF, GERD, Anxiety and Depression, HTN, HLD, Diabetes mellitus type II, COPD/Asthma, Carotid disease s/p CEA, CAD s/p CABG x 4, Tobacco use whopresents to the [facility] ED on 11/10/2024 with history of recently being initiated on Lasix outpatient approximate 1 week prior taking 2 pills daily in addition to spironolactone however he notes he has been having weight gain as well as increased lower extremity swelling, orthopnea and dyspneaworse with exertion with home health evaluation 11/09/2024 with nurse noting significant venous stasis blistering because of worsening edema prompting eventual ED evaluation to be cautious. #1. Acute on Chronic Decompensated HFrEF exacerbation with associated indeterminate cardiac enzymes, chronic: CXR obtained in the ED w/ evidence of cardiomegaly with vascular congestion/interstitial edema and small bilateral pleural effusion. Patient administered IV lasix in the ED, will admit to PCU, given complaints of increased dyspnea in the ED upon evaluation will request ABG, will supplement oxygen, will maintain on cardiac telemetry, will continue to obtain cardiac enzyme series, obtain serial EKGs, continue IV lasix diuresis,monitor I/Os, maintain on intake restriction, continue medical therapy, obtain TSH and magnesium level. 09/18/2024 echocardiogram with LVEF 35%, normal LV size,akinetic apex, severely hypokinetic mid anterior region with LV systolic function noted to have been same compared to previous study, global longitudinalstrain severely abnormal. Will place send sandra wraps with lower extremity elevation with wound RN consultation given stasis blisters. #2. CAD: Status post CABG x 4, will continue aspirin, Plavix, not on statin therapy possibly secondary to intolerance but on Repatha, not on SANDRA/ARB potentially secondary to renal disease but uncertain, also per current list not on beta- jonatan therapy for unclear etiology, attempting to clarify. Continue home ezetimibe regimen. #3. Chronic COPD/asthma with allergic rhinitis: Will temporally hold home inhaler and in the interim we will transition to ATC budesonide therapy, PRN albuterol, HOB, IS parameters, may initiate fluticasone if necessary however as needed regimen. #4. Carotid disease: Status post CEA, continue aspirin, Plavix, not on statin therapy possibly secondary to intolerance but as noted on Repatha, continue hypertensive regimen with adjustments as noted, diabetic regimen with alteration/hold as noted. #5. Diabetes mellitus type II: Hold oral home regimen, continue home long-acting insulin regimen, ADA diet, accu checks w/ ISS. #6. Hypertension: Continue home regimen including spironolactone, IV Lasix, percurrent list does not appear to be on beta-jonatan therapy or SANDRA inhibitor/ARB,attempting to clarify, PRN hydralazine. #7. Hyperlipidemia: Per current list does not appear to be on any statin therapy but is on Repatha, potentially secondary to intolerance, continue outpatient Repatha injection. Continue home ezetimibe the regimen. FLP in AM. #8. Chronic Kidney Disease Stage II per GFR trending: Admission BUN/Cr 24/1.19,GFR 68, baseline renal function appears primarily 0.9-1.1, repeat BMP in AM. #9. Anxiety and depression: Per current list on a regimen, defer to outpatient. #10. Tobacco Abuse: Encouraged cessation, inpatient consultation per RT, NR if desired. #11. Hx CVA: Chronic mild facial droop otherwise family/patient deny any other deficits, continue asa, plavix, not on statin therapy possibly secondary to intolerance but on Repatha and ezetimibe, continue hypertensive regimen as noted, continue diabetic regimen with adjustments as noted. #12. GERD: Will continue patient on PPI. #13. DVT prophylaxis: Lovenox. #14. CODE status: Patient CYNTHIA is his daughter Wagner and living will is currently in place. Discussed CODE status at length including difference betweenFULL code, DNR-CCA and DNR-CC status. Following discussions about the differences in these status, requested Full Code status. Advanced Care Planning Face to Face Time: 16 minutes. Charges/Coding Visit Charges Inpatient E&M: 65379 Init Hosp L3 Procedures Hospitalists Procedures: 24253 Advncd Care Plan 30 Min 11/10/241955 <Electronically signed by Corazon Diaz MD> Cosigner Signature (if applicable): CC: Dr. Corazon Diaz MD; Dr. 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 Advance Directive(s) 01/20/2017 7:47 AM Advance Directive(s) 09/05/2015 4:07 PM Advance Directive Response Recorded Date/ Time Advance Directives No January 13, 2020 3:59pm Living Will No July 18, 2021 9:19pm Power of Pastry Finisher No July 18 9:19pm Advance Directive Response Recorded Date/ Time Advance Directives No January 13, 2020 3:59pm Living Will No December 08, 022 11:25pm Power of Pastry Finisher No December 08, 2021 11:25pm Advance Directive Response Recorded Date/ Time Advance Directives No January 13, 2020 2:59pm Living Will No March 01 022 9:51pm Power of Pastry Finisher No March 01, 2022 9:51pm Advance Directive Response Recorded Date/ Time Advance Directives No January 13, 2020 2:59pm Living Will No April 18 1:40am Power of Pastry Finisher No April 18, 2022 1:40am Advance Directive Response Recorded Date/ Time Advance Directives No January 13, 2020 2:59pm Living Will No May 21 023 1:36am Power of Pastry Finisher No May 21, 2022 1:36am Advance Directive Response Recorded Date/ Time Advance Directives No January 13, 2020 2:59pm Living Will No April 25 3:42pm Power of Pastry Finisher No April 25, 2023 3:42pm Advance Directive Response Recorded Date/ Time Advance Directives No January 13, 2020 2:59pm Living Will No May 24 024 12:27am Power of Pastry Finisher No May 24, 2023 12:27am Advance Directive Response Recorded Date/ Time Living Will No August 23, 2023 6 :30pm Do you have a Healthcare Power of Pastry Finisher? No August 23, 2023 6:30pm Advance Directives on File No Janua 2024 8:15am Living Will No April 20 8:15am Do you have a Healthcare Power of Pastry Finisher? No April 20, 2024 8:15am Advance Directives No April 20, 2024 8:15am Living Will No May 21 025 8:31pm Do you have a Healthcare Power of Pastry Finisher? No May 21, 2024 8:31pm Advance Directive Response Recorded Date/ Time Living Will No August 23, 2023 6 :30pm Do you have a Healthcare Power of Pastry Finisher? No August 23, 2023 6:30pm Living Will No May 21 2 025 8:31pm Do you have a Healthcare Power of Pastry Finisher? No May 21, 2024 8:31pm Living Will No June 18, 2024 6:24am Do you have a Healthcare Power of Pastry Finisher? No June 18, 2024 6:24am Do you have a Healthcare Power of Pastry Finisher? No July 29, 2024 8:08pm Advance Directives No April 20, 2024 8:15am Advance Directive Response Recorded Date/ Time Living Will No August 23, 2023 6 :30pm Do you have a Healthcare Power of Pastry Finisher? No August 23, 2023 6:30pm Do you have a Healthcare Power of Pastry Finisher? No September 18, 2024 10:00am Living Will No May 21, 8:31pm Do you have a Healthcare Power of Pastry Finisher? No May 21, 2024 8:31pm Living Will No June 18, 2024 6:24am Do you have a Healthcare Power of Pastry Finisher? No June 18, 2024 6:24am Do you have a Healthcare Power of Pastry Finisher? No July 29, 2024 8:08pm Advance Directives No April 20, 2024 8:15am Advance Directive Response Recorded Date/ Time Living Will No August 23, 2023 6 :30pm Do you have a Healthcare Power of Pastry Finisher? No August 23, 2023 6:30pm Do you have a Healthcare Power of Pastry Finisher? No September 18, 2024 3:22pm Living Will No June 18, 2024 6:24am Do you have a Healthcare Power of Pastry Finisher? No June 18, 2024 6:24am Do you have a Healthcare Power of Pastry Finisher? No July 29, 2024 8:08pm Advance Directives No April 20, 2024 8:15am Advance Directive Response Recorded Date/ Time Living Will No August 23, 2023 6 :30pm Do you have a Healthcare Power of Pastry Finisher? No August 23, 2023 6:30pm Do you have a Healthcare Power of Pastry Finisher? No September 18, 2024 3:22pm Do you have a Healthcare Power of Pastry Finisher? No October 19, 2024 6:36pm Do you have a Healthcare Power of Pastry Finisher? No July 29, 2024 8:08pm Advance Directives No April 20, 2024 8:15am Advance Directive Response Recorded Date/ Time Living Will No August 23, 2023 6 :30pm Do you have a Healthcare Power of Pastry Finisher? No August 23, 2023 6:30pm Do you have a Healthcare Power of Pastry Finisher? No September 18, 2024 3:22pm Do you have a Healthcare Power of Pastry Finisher? No October 19, 2024 6:36pm Do you have a Healthcare Power of Pastry Finisher? Yes October 21, 2024 4:34pm Do you have a Healthcare Power of Pastry Finisher? No July 29, 2024 8:08pm Advance Directives No April 20, 2024 8:15am Advance Directive Response Recorded Date/ Time Living Will No August 23, 2023 6 :30pm Do you have a Healthcare Power of Pastry Finisher? No August 23, 2023 6:30pm Do you have a Healthcare Power of Pastry Finisher? No September 18, 2024 3:22pm Do you have a Healthcare Power of Pastry Finisher? No October 19, 2024 6:36pm Do you have a Healthcare Power of Pastry Finisher? Yes October 21, 2024 4:34pm Do you have a Healthcare Power of Pastry Finisher? No July 29, 2024 8:08pm Do you have a Healthcare Power of Pastry Finisher? Yes October 23, 2024 6:04pm Advance Directives No April 20, 2024 8:15am Advance Directive Response Recorded Date/ Time Living Will No August 23, 2023 6 :30pm Do you have a Healthcare Power of Pastry Finisher? No August 23, 2023 6:30pm Do you have a Healthcare Power of Pastry Finisher? No September 18, 2024 3:22pm Do you have a Healthcare Power of Pastry Finisher? No October 19, 2024 6:36pm Do you have a Healthcare Power of Pastry Finisher? Yes October 21, 2024 4:34pm Do you have a Healthcare Power of Pastry Finisher? No July 29, 2024 8:08pm Do you have a Healthcare Power of Pastry Finisher? Yes October 23, 2024 6:04pm Do you have a Healthcare Power of Pastry Finisher? No October 26, 2024 11:37pm Advance Directives No April 20, 2024 8:15am Advance Directive Response Recorded Date/ Time Living Will No August 23, 2023 6 :30pm Do you have a Healthcare Power of Pastry Finisher? No August 23, 2023 6:30pm Do you have a Healthcare Power of Pastry Finisher? No September 18, 2024 3:22pm Do you have a Healthcare Power of Pastry Finisher? No October 19, 2024 6:36pm Do you have a Healthcare Power of Pastry Finisher? Yes October 21, 2024 4:34pm Do you have a Healthcare Power of Pastry Finisher? No November 10, 2024 4:22pm Do you have a Healthcare Power of Pastry Finisher? No July 29, 2024 8:08pm Do you have a Healthcare Power of Pastry Finisher? Yes October 23, 2024 6:04pm Do you have a Healthcare Power of Pastry Finisher? No October 26, 2024 11:37pm Advance Directives [...] diabetes mellitus Stenosis of right carotid artery [id number] Nicotine dependence Chief Complaint 3 M FU Amb Documentation LOWER lung cancer screening SCREENING 3 M FU NSTEMI Reason for Visit Essential (primary) hypertension Insulin dependent diabetes mellitus Stenosis of right carotid artery [id number] Nicotine dependence Essential (primary) hypertension Hyperlipidemia Insulin dependent diabetes mellitus H/O coronary artery bypass surgery NSTEMI, initial episode of care Insulin dependent diabetes mellitus Nicotine dependence Chief Complaint LOWER lung cancer screening SCREENING 3 M FU NSTEMI NSTEMI NSTEMI NSTEMI [facility] FU- HEART ATTACK s/p [facility] ED NSTEMI 1-14 lower extrem Reason for Visit [id number] Nicotine dependence Essential (primary) hypertension Hyperlipidemia Insulin [...] 3 M FU NSTEMI NSTEMI NSTEMI NSTEMI [facility] FU- HEART ATTACK s/p [facility] ED NSTEMI 1-14 lower extrem EORDER Reason for Visit [id number] Nicotine dependence Essential (primary) hypertension Hyperlipidemia Insulin [...] hypertension Insulin dependent diabetes mellitus Nicotine dependence [id number] Nicotine dependence Chief Complaint Admit Date 3-4 M FU February 24, 2024 11:07am 3 M FU February 24, 2024 12:58pm PVD, OPEN WOUND March 09, 2024 9 :11am 4-5 WK FU March 22, 2024 10:47am Peripheral vascular disease, unspecified March 29, 2024 1:23pm 6 M FU April 01, 2024 9:49am Discuss CTA results April 08, 2024 12 :56pm Atherosclerosis of [place] arteries of [place]ht leg [place] April 20, 2024 6:47am Atherosclerosis of [place] arteries of ri ght leg [place] April [...] February 24, 2024 11:07am Essential (primary) hypertension Novem r 2023 12:58pm Insulin dependent diabetes mellitus Nove [facility] 2023 12:58pm Nicotine dependence February 24, 2024 12:58pm Fissure in skin of left foot February 232023 12:58pm Fissure in skin of right foot March 062023 10:47am PAD (peripheral artery disease) March 22, 2024 10:47am Cardiac murmur April 01, 2024 9:49am Essential (primary) hypertension Decembe r 2023 9:49am Hyperlipidemia April 01, 2024 9:49am Nicotine dependence April 01, 2024 9:49am Stenosis of right carotid artery Decembe r 2023 9:49am H/O coronary artery bypass surgery Decem jon 2023 9:49am Atherosclerosis of right lower extremity with ulceration April 08, 2024 12:56pm Atherosclerosis of right lower extremity with ulceration May 03, 2024 10:46am Fissure in skin of right foot May 032024 10:46am Hypertriglyceridemia May 03, 2024 10:46am Type 2 diabetes mellitus May 03, 025 10:46am COPD (chronic obstructive pu lmonary [...] [place] PD June 20, 2024 10:58am S/P [facility] 06/21July 12, 2024 9:51 am Discuss [...] 4:4 5am Overweight (BMI 25.0-29.9) June 18, 025 4:45am Pulmonary edema June 18, 2024 [...] 4:4 5am Overweight (BMI 25.0-29.9) June 18, 025 4:45am Pulmonary edema June 18, 2024 [...] 2024 9:55am Chief Complaint Admit Date S/P [facility] 06/21July 12, 2024 9:51 am Discuss [...] 2024 9:55am Chief Complaint Admit Date S/P [facility] 06/21July 12, 2024 9:51 am Discuss [...] 4:25 pm Chief Complaint Admit Date S/P [facility] [...] 2024 10:15am Chief Complaint Admit Date S/P [facility] 06/21July 12, 2024 9:51 am [...] November 03, 2024 10:1 5am 3 M FU/[facility] ER FU November 04, 2024 1:3 6pm [...] November 03, 2024 10:1 5am 3 M FU/[facility] ER FU November 04, 2024 1:3 6pm [...] reduced ejection fraction) November 10, 2024 10:05am Chief Complaint Admit Date Discuss Results July [...] November 03, 2024 10:1 5am 3 M FU/[facility] ER FU November 04, 2024 1:3 6pm ACUTE LEG SWELLING FU November 10, 2024 1 0:05am ACUTE HFREF EXACERBATION November 10 7:21pm Shortness of breath November 10, 2024 7:3 0pm Reason for Visit Admit Date Atherosclerosis of [...] reduced ejection fraction) November 10, 2024 10:05am 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 November 10, 2024 10:05am Essential (primary) hypertension November 10, 2024 10:05am Acute HFrEF (heart failure with reduced ejection fraction) November 10, 2024 7:21pm Family History Relationship Condition Age at Onset [...] Yamilka Parekh MD [address] [place] [address] [address] Imaging Referral ID Status Reason Start Date Expiration Date Visits Requested Visits Authorized [id number] Additional Clinical Info Needed Auto-Generat ed Referral 01/06/2022 02/05/2023 1 1 Specialty Diagnoses / Procedures Referred By David rausch Referred To Contact CT IMAGING Diagnoses Left groin pain Procedures CT PELVIS WO IVCON CT PELVIS W/O CONTRAST MATERIAL Yamilka Parekh MD [address] [place] [address] [place] [address] Referral ID Status Reason Start Date Expiration Date V isits Requested Visits Authorized [id number] Closed Auto-Generate d Referral 01/06/2022 03/16/2022 2 2 Summary Purpose Additional Source Comments Source Comments (unrecognize d section and content) In the event this informatio n is protected by the Federal Confidentiality of Alcohol and Drug Abuse Patient Records regulations: The Federal rules restrict any use of the information to criminally investigate or prosecute any alcohol or drug abuse patient.[facility] the event this information is protected by the Federal Confidentiality of Alcohol and Drug Abuse Patient Records regulations: The Federal rules restrict any use of the information to criminally investigate or prosecute any alcohol or drug abuse patient.[facility] the event this information is protected by the Federal Confidentiality of Alcohol and Drug Abuse Patient Records regulations: The Federal rules restrict any use of the information to criminally investigate or prosecute any alcohol or drug abuse patient.[facility] Hospital[facility] the event this information is protected by the Federal Confidentiality of Alcohol and Drug Abuse Patient Records regulations: The Federal rules restrict any use of the information to criminally investigate or prosecute any alcohol or drug abuse patient.[facility] Hospital[facility] the event this information is protected by the Federal Confidentiality of Alcohol and Drug Abuse Patient Records regulations: The Federal rules restrict any use of the information to criminally investigate or prosecute any alcohol or drug abuse patient.[facility] the event this information is protected by the Federal Confidentiality of Alcohol and Drug Abuse Patient Records regulations: The Federal rules restrict any use of the information to criminally investigate or prosecute any alcohol or drug abuse patient.[facility] Hospital[facility] the event this information is protected by the Federal Confidentiality of Alcohol and Drug Abuse Patient Records regulations: The Federal rules restrict any use of the information to criminally investigate or prosecute any alcohol or drug abuse patient.[facility] Reason for Visit (unrecogniz ed section [...] Yamilka Parekh MD [address] [place] [address] [place] [id number] Referral ID Status Reason Start Date Expiration Date V isits Requested Visits Authorized [id number] Closed Auto-Generate d Referral 01/06/2022 03/16/2022 2 [...] Care Teams (unrecognized sec tion and content) Sociology Instructor Relationship Specialty Start Date End Date Xiang Rogers, DO [address] [place] [address] PCP - General Family Medicine 01/03/22 Sociology Instructor Relationship Specialty Start Date End Date Xiang Rogers DO [address] [place] [address] PCP - General Family Medicine 01/03/22 Sociology Instructor Relationship Specialty Start Date End Date Xiang Rogers DO [address] [place] [address] PCP - General Family Medicine 01/03/22 Team Status: Active Member Role Status Dates Dr. Xiang Rogers DO Family Provider Active Dr. Xiang Rogers , DO Primary Care Provider Active Team Status: Inactive Member Role Status Dates Dr. Xiang Rogers , DO Primary Care Pr ovider, Attending Provider, Referring Provider Active Team Status: Inactive Member Role Status Dates Dr. Xinag Rogers DO Primary Care Provider Active Kimberli Mora LEAN SENSEI, LEAN SENSEI-C Attending Provider, Referring Provider Active Team Status: [...] Provider, Referr ing Provider Active Dean Pena LEAN SENSEI, LEAN SENSEI-C Attending Provider Active Team Status: Inactive Member [...] DO Primary Care Provider Active Dean Pena LEAN SENSEI, LEAN SENSEI-C Attending Provider, Referring Pro vider Active Sociology Instructor Relationship Specialty Start Date End Date Xiang Rogers DO [address] [place] [address] PCP - General Family Medicine 01/03/22 Sociology Instructor Relationship Specialty Start Date End Date Xiang Rogers DO [address] [place] [address] PCP - General Family Medicine 01/03/22 Team [...] Provider, Referr ing Provider Active Kimberli Mora LEAN SENSEI, LEAN SENSEI-C Attending Provider Active Team Status: Inactive Member Role Status Dates Dr. Xiang Rogers DO Primary Care Provider Active Dr. Saúl Aguilar DO Attending Provider, Emergency P gino Active Sociology Instructor Relationship Specialty Start Date End Date Xiang Rogers DO [address] [place] [address] PCP - General Family Medicine 01/03/22 Team [...] Member Role Status Dates Dr. Xiang Roegrs DO Primary Care Provider Active Start: May [...] 2024 End: June 20, 2024 Dean Pena LEAN SENSEI, LEAN SENSEI-C Other Provider Active Start : June 18, [...] Active Start: June 19, 2024 Dean Pena LEAN SENSEI, LEAN SENSEI-C Other Provider Active Start : June 19, [...] Active Start: June 19, 2024 Dean Pena LEAN SENSEI, LEAN SENSEI-C Other Provider Active Start : June 19, [...] Active Start: June 20, 2024 Dean Pena LEAN SENSEI, LEAN SENSEI-C Other Provider Active Start : June 20, [...] , DO Primary Care Provider Active Start: June 20, 2024 Dr. Jevon Osorio MD Emergency Provider Active Sta rt: June 20, 2024 Dr. Steve Esteban , Admit Provider Active Start: June 20, 2024 [...] Active Start: June 20, 2024 Dean Pena LEAN SENSEI, LEAN SENSEI-C Other Provider Active Start : June 20, [...] 2024 End: July 12, 2024 Ronit Galvez LEAN SENSEI, LEAN SENSEI-C Attending Provider Active Start: July 12, 2024 [...] September 08, 2024 End: September 08, 2024 NILSNO Heck Attending Provider Active Star t: September [...] Start: September 18, 2024 Dr. Saúl Aguilar , Emergency Provider Active Start: September 18, 2024 Dr. Clinton Soares , DO Admit Provider Active Start: September 18, 2024 Dr. Clinton Soares DO Attending Provider Active Start: September 18, 2024 Dr. Clinton Soares , DO Other [...] September 21, 2024 Dr. Seth Carrington , Other Provider Active S tart: September 18, [...] September 19, 2024 Dr. Clinton Soares , Admit Provider Active Start: September 19, 2024 Dr. Clinton Soares , DO Other Provider Active Start: September 19, 2024 Dr. Seth Carrington , DO Attending Provider Active Start: September 19, 2024 Dr. Seth Carrington , DO Other Provider Active S tart: September 19, 2024 Team Status: Active Member Role Status Dates Dr. Xiang Rogers , Primary Care Provider Active Start: September 20, [...] 2024 End: July 12, 2024 Ronit Galvez LEAN SENSEI, LEAN SENSEI-C Attending Provider Active Start: July 12, 2024 [...] Active Start: September 21, 2024 Dr. Clinton oSares , DO Admit Provider Active Start: September [...] October 21, 2024 Dr. Severo Zeng DO Attending Provider Active S tart: October [...] 2024 End: October 27, 2024 Dr. Bronson Tolention DO Emergency Provider Active Start: October 26, [...] October 21, 2024 Dr. Severo Zeng , Emergency Provider Active S tart: October 21, [...] October 27, 2024 Dr. Bronson Tolentino , Attending Provider Active Start: October 26, 2024 [...] 03, 2024 End: November 03, 2024 Magaly Abdi PA, PA Attending Provider Active Start: November 03, [...] November 10, 2024 End: November 10, 2024 Team Status: Active Member Role/Relationship Status Dates Dr. Xiang Rogers DO Primary Care Provider Active Start: November 10, 2024 Dr. Bishop Monique DO Emergency Provider Activ e Start: November 10, 2024 Dr. Corazon Diaz MD Admit Provider Active St art: November 10, 2024 Dr. Corazon Diaz MD Attending Provider Active Start: November 10, 2024 Team Status: Active Member Role/Relationship Status Dates Dr. Xiang Rogers DO Primary Care Provider Active Start: November 10, 2024 Dr. Bishop Monique DO Emergency Provider Activ e Start: November 10, 2024 Dr. Corazon Diaz MD Attending Provider Active Start: November 10, 2024 (unrecognized sect ion and content) No Status Records FoundNo Status Records Found INFORMATION SOURCE (unrecogn ized section and content) DATE CREATED AUTHOR 02/05/2022 [facility] DATE CREATED AUTHOR AUTHOR'S ORGANIZ ATION 11/05/2024 [facility] FOR RECORDS PERTAINING TO PATIENTS WHO ARE [...] BE BASED ON THE PRIMARY CLINICAL RECORDS. [facility]. provides no warranty or guarantee of the accuracy or completeness of information in this document.
--- OUTSIDE RECORDS SUMMARY | 2024-11-11 07:39 | XMS RPT_ITS | CCD ---
Author Organization [facility] CliniSyvt Care Team Providers Care Regulatory Affairs Assistant Name Role Phone Unavailable Primary Care Provider [...] [phone] Galdino Baird Attending Provider Unavailable Abby REFRIGERATION SPECIALIST, REFRIGERATION SPECIALIST-C Kimberli Attending Provider [phone] Abby REFRIGERATION SPECIALIST, REFRIGERATION SPECIALIST-C Kimberli Referring Provider Dr. Xiang Rogers Primary Care Provider [phone] Dr. Xiang Rogers Attending Provider [phone] Dr. Xiang Rogers Referring Provider [phone] Dr. Maribell Moura Emergency Provider Elizabeth, Dr. Flori Jones Admit Provider Elizabeth, Dr. Flori Jones Other Provider Farede, Dr. Blackwood Other Provider Dr. Steve Fields Attending Provider Unavailable Diamond, Dr. Wilson Other Provider Unavailable Dr. Calos Quinn Attending Provider Roof REFRIGERATION SPECIALIST, REFRIGERATION SPECIALIST-C Dean Carson Attending Provider Xiang Rogers DO Primary Care Provider Dr. Xiang Rogers Primary Care Provider Dr. Xiang Rogers Attending Provider Dr. Xiang Rogers Referring Provider Roof REFRIGERATION SPECIALIST, REFRIGERATION SPECIALIST-C Dean Carson Attending Provider Dr. Xiang Rogers Primary Care Provider Dr. Xiang Rogers Referring Provider Dr. Xiang Rogers Attending Provider Dr. Xiang Rogers Primary Care Provider Dr. Xiang Rogers Referring Provider [facility] REFRIGERATION SPECIALIST, REFRIGERATION SPECIALIST-C Kimberli Attending Provider Xiang Rogers DO Primary Care Provider Dr. Xiang Rogers DO Primary Care Provider [phone] Dr. Xiang Rogers DO Referring Provider Lubna [...] Dr. Xiang Will Primary Care Provider [phone] Dr. Xiang Rogers DO Referring Provider Lubna [...] WESTBROOK, Dr. Muñiz Other Provider Unavailable Jet WESBTROOK, Dr. Bingham Other Provider Fareed WESTBROOK, Dr. Blackwood Other Provider Quinn WESTBROOK, Dr. Vazquez Other Provider Uriel WESTBROOK, Dr. Jane Other Provider Radha WESTBROOK, Dr. Garcia Other Provider Linda WESTBROOK, Dr. Horvath Other Provider Martine WESTBROOK, Dr. Barone Other Provider Laurita WESTBROOK, Dr. Lyn Other Provider Jean REFRIGERATION SPECIALIST-C, Dean Carson Other Provider Magaly Denise Other [...] Care Provider Lubna Calhoun Attending Provider Uriel WESTRBOOK, Dr. Jane Other Provider Dr. Xiang Rogers DO Referring Provider Dr. Clinton Soares DO Admit Provider Dr. Clinton Soares DO Attending Provider Dr. Xiang Rogers DO Primary Care Provider [phone] Dr. Saúl Aguilar DO Emergency Provider Dr. [...] Dr. Elkins Emergency Provider Patricio WESTBROOK, Dr. Belrtan Referring Provider Patricio WESTBROOK, Dr. Beltran Emergency Provider Paul SANDRA, Dr. Laura Attending Provider Azucena SANDRA, Dr. Elkins Attending Provider Dr. Bronson Tolentino DO Emergency Provider Patricio WESTBROOK, Dr. Beltran Attending Provider Dr. Bronson Tolentino DO Attending Provider Saúl Flowers Consulting Unavailable Saúl Flowers Attending Unavailable Erwin, Saúl Referring Unavailable Brown, Xiang R Primary [...] Attending Unavailable Brown, Xiang R Referring Unavailable ErwinSaúl Attending Unavailable Brown, Xiang R Primary Care [...] Unavailable Brown, Xiang R Referring Unavailable Lenny REFRIGERATION SPECIALIST, Ronit Attending Unavailable Brown, Xiang R Primary Care Unavailable Lenny REFRIGERATION SPECIALIST, Ronit Attending Unavailable Lenny REFRIGERATION SPECIALIST, Ronit Referring Unavailable Brown, Xiang R Primary [...] Brown, Xiang R Primary Care Unavailable Abby REFRIGERATION SPECIALIST, Kimberli Referring Unavailable Abby REFRIGERATION SPECIALIST, Kimberli Attending Unavailable Brown, Xiang R Primary Care Unavailable Lenny REFRIGERATION SPECIALIST, Ronit Referring Unavailable Lenny REFRIGERATION SPECIALIST, Ronit Attending Unavailable Brown, Xiang R Primary [...] Consulting Unavailable George Ball Consulting Unavailable Kai, Kopperl Consulting Unavailable Belal, Farouk Consulting Unavailable Jose [...] Consulting Unavailabl e Satti, Abisai Consulting Unavailable Howes, Riki Consulting Unavailable Roof REFRIGERATION SPECIALIST, Dean Carson Consulting Unavailable Trinidad DEVINE, Magaly [...] Unavailable Xiang Rogers Primary Care Unavailable Joaquin SANDAR, Dr. Xiang Will Primary Care Provider [phone] Dr. Xiang Rogers DO Referring Provider Leah King Attending Provider [phone] Bishop Monique DO Emergency Provider Emily WESTBROOK, Dr. Corazon Young Admit Provider Emily WE[facility]BROOK, Dr. Corazon Young Attending Provider Allergies Allergy Classification Reported Allergen(s) Allergy Type Date of Onset Reaction(s) Facility (8 sources) Etodolac; Translations: [ETODOLAC] Drug Allergy 03-12-2005 GI Upset [facility] (20 sources) Amoxicillin; Translations: [AMOXICILLIN] Drug Allergy 07-18-2021 Angioedema [facility] (20 sources) Lindane; Translations: [LINDANE] Drug Allergy 07-18-2021 Rash [facility] (1 source) Amoxicillin Drug Allergy 11-04-2024 [facility] (1 source) Lindane Drug Allergy 11-04-2024 [facility] (1 source) Unable to Assess Drug allergy (disorder) 06-17-2024 [facility] Medications Current Medications Medication Drug [...] January 13, 2023 January 26, 2023 2:35pm [id number] 200 actuat albuter ol 0.09 mg/actuat metered [...] 06-11-2018 End: 08-11-2018 Insulin Nph And Regular Chlei n Discontinued 22 UNITS SC WITH DINNER [...] 08-06-2017 End: 01-05-2018 Insulin Nph And Regular Cheil n Discontinued 0 SC TWICE A DAY [...] the tongue every 5 minutes as needed. [place]-3 Fatty Acids-Fish Oil (12 sources) Start: 07-10-2017 End: 07-28-2017 [place]-3 Fatty Acids-Fish Oil Discontinued 2 EACH PO DAILY July 10, 2017 3:35pm July 28, 2017 1:36pm Start: 07-10-2017 End: 07-28-2017 [place]-3 Fatty Acids-Fish Oil Discontinued 2 EACH PO DAILY July 09, 2017 11:00pm July 28, 2017 12:36pm Start: 07-10-2017 End: 07-28-2017 [place]-3 Fatty Acids-Fish Oil Discontinued 2 EACH PO DAILY July 10, 2017 12:00am July 28, 2017 1:36pm [place]-3 Fatty Acids-Fish Oil 1 EACH capsule (1 source) Start: 07-10-2017 End: 07-28-2017 [place]-3 Fatty Acids-Fish Oil 1 EACH capsule Discontinued [...] on above: Take 2 tablets by [facility] once daily. 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] Onset: 06-24-2024 Episodic [...] Auto (Unsp spec) [#/Vol] 1.74 10*3/uL 0.83-4.51 [facility] Anion gap in Serum or Plasma Ordered By: Bishop Monique on 11-10-2024 Anion gap [Moles/Vol] 12 mmol/L 5-15 [facility] Automated lymphocyte count a s percentage of total leukocytesOrdered By: ED PROVIDER on 11-10-2024 Lymphocytes/100 WBC Auto (Unsp spec) 20.2 % 19-41 [facility] BUN/creatinine ratioOrdered By: Bishop Monique on 11-10-2024 Urea nitrogen/Creatinine [Mass ratio] 20.3 mg/mg High 10-20 [facility] Basophil percentageOrdered B y: ED PROVIDER on 11-10-2024 Basophils/100 WBC (Bld) 0.3 % 0-1 [facility] Carbon dioxide, total [Moles /volume] in Central venous bloodOrdered By: Bishop Monique on 11-10-2024 CO2 [Moles/Vol] 23.1 mmol/L 21.0-32.0 [facility] Chloride assayOrdered By: Elías Monique on 11-10-2024 Chloride [Moles/Vol] 101 mmol/L 98-108 [facility] Eosinophil percentageOrdered By: ED PROVIDER on 11-10-2024 Eosinophils/100 WBC (Bld) 1.5 % 0-5 [facility] Erythrocyte distribution wid th ratioOrdered By: ED PROVIDER on 11-10-2024 Erythrocyte distribution width (RBC) [Ratio] 14.2 % 11.6-14.6 [facility] Erythrocyte distribution wid th standard deviationOrdered By: ED PROVIDER on 11-10-2024 Erythrocyte distribution width (RBC) [Ratio] 48.4 fl High 35.1-43.9 [facility] Glomerular filtration rate ( GFR) estimation/1.73 sq m using serum, plasma, or whole bOrdered By: Bishop Monique on 11-10-2024 GFR/1.73 sq M.predicted among non-blacks MDRD (S/P/Bld) [Vol rate/Area] 68 mL/min/{1.73_m2} >60 [facility] Hematocrit Auto (Bld) [Volum e fraction]Ordered By: ED PROVIDER on 11-10-2024 Hematocrit (Bld) [Volume fraction] 41.6 % 40-54 [facility] Hemoglobin measurementOrdere d By: ED PROVIDER on 11-10-2024 Hemoglobin (Bld) [Mass/Vol] 13.3 g/dL 13.0-16.5 [facility] Immature granulocytes/100 WB C Auto (Bld)Ordered By: ED PROVIDER on 11-10-2024 Immature granulocytes/100 WBC (Bld) 0.300 % 0.0-0.9 [facility] Influenza virus A and B and SARS-CoV-2 (COVID-19) and Respiratory syncytial virus RNAOrdered By: Bishop Monique on 11-10-2024 SARS-CoV-2 (COVID-19) RNA HAYDER+probe Ql (Unsp spec) [facility] MCV (mean corpuscular volume ) determinationOrdered By: ED PROVIDER on 11-10-2024 MCV (RBC) [Entitic vol] 93.9 fL 80-94 [facility] Magnesium measurement (mass/ volume)Ordered By: Corazon Diaz on 11-10-2024 Magnesium (Unsp spec) [Mass/Vol] 2.0 mg/dL 1.5-2.2 [facility] Mean corpuscular hemoglobin (MCH) determinationOrdered By: ED PROVIDER on 11-10-2024 MCH (RBC) [Entitic mass] 30.0 pg 27.0-32.0 [facility] Monocyte percentageOrdered B y: ED PROVIDER on 11-10-2024 Monocytes/100 WBC (Bld) 8.0 % 0-10 [facility] Natriuretic peptide.B prohor parris N-Terminal [Mass/volume] in Serum or PlasmaOrdered By: Bishop Monique on 11-10-2024 Natriuretic peptide.B prohormone N-Terminal [Mass/Vol] 9141 pg/mL High <900 [facility] Neutrophil percentageOrdered By: ED PROVIDER on 11-10-2024 Neutrophils/100 WBC (Bld) 69.7 % 47-70 [facility] Platelet countOrdered By: ED PROVIDER on 11-10-2024 Platelets (Bld) [#/Vol] 336 10*3/uL 150-450 [facility] Potassium measurement (mass/ volume)Ordered By: Bishop Monique on 11-10-2024 Potassium (Unsp spec) [Mass/Vol] 3.7 mmol/L 3.3-5.1 [facility] RBC Auto (Bld) [#/Vol]Ordere d By: ED PROVIDER on 11-10-2024 RBC (Bld) [#/Vol] 4.43 10*6/uL Low 4.6-6.2 [facility] Serum creatinine measurement (mass/volume)Ordered By: Bishop Monique on 11-10-2024 Creatinine [Mass/Vol] 1.19 mg/dL 0.70-1.20 [facility] Serum glucose measurement (m ass/volume)Ordered By: Bishop Monique on 11-10-2024 Glucose [Mass/Vol] 174 mg/dL High 70-99 [facility] Serum or plasma calcium brenda urement (mass/volume)Ordered By: Bishop Oviedo on 11-10-2024 Calcium [Mass/Vol] 8.8 mg/dL 7.6-11.0 [facility] Serum or plasma urea nitroge n measurement (mass/volume)Ordered By: Bishop Monique on 11-10-2024 Urea nitrogen [Mass/Vol] 24 mg/dL High 4-19 [facility] Sodium levelOrdered By: Maurisio Monique on 11-10-2024 Sodium [Moles/Vol] 136 mmol/L 133-145 [facility] Troponin T.cardiac [Mass/vol ume] in Serum or Plasma by High sensitivity methodOrdered By: Bishop Monique on 11-10-2024 Troponin T.cardiac High sensitivity method [Mass/Vol] 37 ng/L High <22 [facility] Troponin T.cardiac High sensitivity method [Mass/Vol] 42 ng/L High <22 [facility] White blood cell (WBC) count Ordered By: ED PROVIDER on 11-10-2024 WBC (Bld) [#/Vol] 8.6 10*3/uL 4.4-11.0 [facility] Internal Medicine Office Vis iton 11-04-2024 Internal Medicine Office Visit Normal [facility] Absolute lymphocyte countOrd ered By: Magaly Abdi on 10-27-2024 Lymphocytes Auto (Unsp spec) [#/Vol] 0.95 10*3/uL 0.83-4.51 [facility] Anion gap in Serum or Plasma Ordered By: Bronson Tolentino on 10-27-2024 Anion gap [Moles/Vol] 13 mmol/L 5-15 [facility] Automated lymphocyte count a s percentage of total leukocytesOrdered By: Magaly Abdi on 10-27-2024 Lymphocytes/100 WBC Auto (Unsp spec) 14.2 % Low 19-41 [facility] BUN/creatinine ratioOrdered By: Bronson Tolentino on 10-27-2024 Urea nitrogen/Creatinine [Mass ratio] 18.1 mg/mg 10-20 [facility] Basic Metabolic Profile (BMP )on 10-27-2024 BUN/CRE 18.1 RATIO Normal - [facility] Comment on above: Performed By: #### L 500.3400, L501.2450, L100.0100, L500.2500, L503.6005, L501.5200 ####[facility] [address] [place], [address] Calcium [Mass/Vol] 8.8 mg/dL Normal 7.6-11.0 [facility] Comment on above: Performed By: #### L 500.3400, L501.2450, L100.0100, L500.2500, L503.6005, L501.5200 ####[facility] [address] [place], [address] Chloride [Moles/Vol] 98 mmol/L Normal 98-108 [facility] Comment on above: Performed By: #### L 500.3400, L501.2450, L100.0100, L500.2500, L503.6005, L501.5200 ####[facility] [address] [place], [address] CO2 [Moles/Vol] 20.9 mmol/L Low 21.0-32.0 [facility] Comment on above: Performed By: #### L 500.3400, L501.2450, L100.0100, L500.2500, L503.6005, L501.5200 ####[facility] [address] [place], [address] Creatinine [Mass/Vol] 0.99 mg/dL Normal 0.70-1.20 [facility] Comment on above: Performed By: #### L 500.3400, L501.2450, L100.0100, L500.2500, L503.6005, L501.5200 ####[facility] [address] [place], [address] ECRCL 87.66 ml/min Normal 50-250 [facility] Comment on above: Performed By: #### L 500.3400, L501.2450, L100.0100, L500.2500, L503.6005, L501.5200 ####[facility] [address] [place], [address] GAP 13 Normal 5-15 [facility] Comment on above: Performed By: #### L 500.3400, L501.2450, L100.0100, L500.2500, L503.6005, L501.5200 ####[facility] [address] [place], [address] GFR/1.73 sq M.predicted among non-blacks MDRD (S/P/Bld) [Vol rate/Area] 85 mL/min/{1.73_m2} Normal >60 [facility] Comment on above: Result Comment: mL/m in/1.73m2 CKD-EPI Creatinine Equation (2020) Performed By: #### L 500.3400, L501.2450, L100.0100, L500.2500, L503.6005, L501.5200 ####[facility] [address] [place], [address] Glucose [Mass/Vol] 203 mg/dL High 70-99 [facility] Comment on above: Performed By: #### L 500.3400, L501.2450, L100.0100, L500.2500, L503.6005, L501.5200 ####[facility] [address] [place], [address] Potassium [Moles/Vol] 4.2 mmol/L Normal 3.3-5.1 [facility] Comment on above: Result Comment: Hemo lysis present, Results??could be affected.?? Performed By: #### L 500.3400, L501.2450, L100.0100, L500.2500, L503.6005, L501.5200 ####[facility] [address] [place], [address] Sodium [Moles/Vol] 132 mmol/L Low 133-145 [facility] Comment on above: Performed By: #### L 500.3400, L501.2450, L100.0100, L500.2500, L503.6005, L501.5200 ####[facility] [address] [place], [address] Urea nitrogen [Mass/Vol] 18 mg/dL Normal 4-19 [facility] Comment on above: Performed By: #### L 500.3400, L501.2450, L100.0100, L500.2500, L503.6005, L501.5200 ####[facility] [address] [place], [address] Basophil percentageOrdered B y: Magaly Abdi on 10-27-2024 Basophils/100 WBC (Bld) 0.3 % 0-1 [facility] Bilirubin Test strip Ql (U)O rdered By: Bronson Tolentino on 10-27-2024 Bilirubin Ql (U) Negative Negative [facility] Bilirubin directOrdered By: Bronson Tolentino on 10-27-2024 Bilirubin.direct [Mass/Vol] 0.17 mg/dL 0.00-0.30 [facility] Bilirubin, totalOrdered By: Bronson Tolentino on 10-27-2024 Bilirubin [Mass/Vol] 0.99 mg/dL 0.00-1.30 [facility] CBC W/Diff, Automatedon 10-05 Absolute Lymph 0.95 X10 3/uL Normal 0.83-4.51 [facility] Comment on above: Order Comment: REDRA W. PREVIOUS SPECIMEN REJECTED DUE TOCLOTTED. 10/27/2427 Hermilo R Law. Performed By: #### L 100.0100 ####[facility] [address] [place], [address] Absolute Neut 5.3 X10 3/uL Normal 2.0-7.7 [facility] Comment on above: Order Comment: REDRA W. PREVIOUS SPECIMEN REJECTED DUE TOCLOTTED. 10/27/2427 Hermilo R Law. Performed By: #### L 100.0100 ####[facility] [address] [place], [address] Basophils/100 WBC (Bld) 0.3 % Normal 0-1 [facility] Comment on above: Order Comment: REDRA W. PREVIOUS SPECIMEN REJECTED DUE TOCLOTTED. 10/27/2427 Hermilo R Law. Performed By: #### L 100.0100 ####[facility] [address] [place], [address] Eosinophils/100 WBC (Bld) 2.2 % Normal 0-5 [facility] Comment on above: Order Comment: REDRA W. PREVIOUS SPECIMEN REJECTED DUE TOCLOTTED. 10/27/2427 Hermilo R Law. Performed By: #### L 100.0100 ####[facility] [address] [place], [address] Erythrocyte distribution width (RBC) [Ratio] 13.2 % Normal 11.6-14.6 [facility] Comment on above: Order Comment: REDRA W. PREVIOUS SPECIMEN REJECTED DUE TOCLOTTED. 10/27/2427 Hermilo R Law. Performed By: #### L 100.0100 ####[facility] [address] [place], [address] Hematocrit (Bld) [Volume fraction] 41.6 % Normal 40-54 [facility] Comment on above: Order Comment: REDRA W. PREVIOUS SPECIMEN REJECTED DUE TOCLOTTED. 10/27/2427 Hermilo R Law. Performed By: #### L 100.0100 ####[facility] [address] [place], [address] Hemoglobin (Bld) [Mass/Vol] 13.3 g/dL Normal 13.0-16.5 [facility] Comment on above: Order Comment: REDRA W. PREVIOUS SPECIMEN REJECTED DUE TOCLOTTED. 10/27/2427 Hermilo R Law. Performed By: #### L 100.0100 ####[facility] [address] [place], [address] IG% 0.400 Normal 0.0-0.9 [facility] Comment on above: Order Comment: REDRA W. PREVIOUS SPECIMEN REJECTED DUE TOCLOTTED. 10/27/2427 Hermilo R Law. Result Comment: IG% - Immature Granulocytes (promyelocytes, myelocytes andmetamyelocytes) > 1% indicates that a LEFT SHIFT is Present. Performed By: #### L 100.0100 ####[facility] [address] [place], [address] Lymphocytes/100 WBC (Bld) 14.2 % Low 19-41 [facility] Comment on above: Order Comment: REDRA W. PREVIOUS SPECIMEN REJECTED DUE TOCLOTTED. 10/27/2427 Hermilo R Law. Performed By: #### L 100.0100 ####[facility] [address] [place], [address] MCH (RBC) [Entitic mass] 30.2 pg Normal 27.0-32.0 [facility] Comment on above: Order Comment: REDRA W. PREVIOUS SPECIMEN REJECTED DUE TOCLOTTED. 10/27/2427 Hermilo R Law. Performed By: #### L 100.0100 ####[facility] [address] [place], [address] MCHC (RBC) [Mass/Vol] 32.0 g/dL Normal 32-36 [facility] Comment on above: Order Comment: REDRA W. PREVIOUS SPECIMEN REJECTED DUE TOCLOTTED. 10/27/2427 Hermilo R Law. Performed By: #### L 100.0100 ####[facility] [address] [place], [address] MCV (RBC) [Entitic vol] 94.5 fL High 80-94 [facility] Comment on above: Order Comment: REDRA W. PREVIOUS SPECIMEN REJECTED DUE TOCLOTTED. 10/27/2427 Hermilo R Law. Performed By: #### L 100.0100 ####[facility] [address] [place], [address] Monocytes/100 WBC (Bld) 4.0 % Normal 0-10 [facility] Comment on above: Order Comment: REDRA W. PREVIOUS SPECIMEN REJECTED DUE TOCLOTTED. 10/27/2427 Hermilo R Law. Performed By: #### L 100.0100 ####[facility] [address] [place], [address] Neutrophils/100 WBC (Bld) 78.9 % High 47-70 [facility] Comment on above: Order Comment: REDRA W. PREVIOUS SPECIMEN REJECTED DUE TOCLOTTED. 10/27/2427 Hermilo R Law. Performed By: #### L 100.0100 ####[facility] [address] [place], [address] Nucleated RBC (Bld) [#/Vol] 0 10*3/uL Normal 0-5 [facility] Comment on above: Order Comment: REDRA W. PREVIOUS SPECIMEN REJECTED DUE TOCLOTTED. 10/27/2427 Hermilo R Law. Performed By: #### L 100.0100 ####[facility] [address] [place], [address] Platelet mean volume (Bld) [Entitic vol] 9.6 fL Normal 6.2-12.0 [facility] Comment on above: Order Comment: REDRA W. PREVIOUS SPECIMEN REJECTED DUE TOCLOTTED. 10/27/2427 Hermilo R Law. Performed By: #### L 100.0100 ####[facility] [address] [place], [address] Platelets (Bld) [#/Vol] 245 10*3/uL Normal 150-450 [facility] Comment on above: Order Comment: REDRA W. PREVIOUS SPECIMEN REJECTED DUE TOCLOTTED. 10/27/2427 Hermilo R Law. Performed By: #### L 100.0100 ####[facility] [address] [place], [address] RBC (Bld) [#/Vol] 4.40 10*6/uL Low 4.6-6.2 [facility] Comment on above: Order Comment: REDRA W. PREVIOUS SPECIMEN REJECTED DUE TOCLOTTED. 10/27/2427 Hermilo R Law. Performed By: #### L 100.0100 ####[facility] [address] [place], [address] RDW SD 46.2 fl High 35.1-43.9 [facility] Comment on above: Order Comment: REDRA W. PREVIOUS SPECIMEN REJECTED DUE TOCLOTTED. 10/27/2427 Hermilo R Law. Performed By: #### L 100.0100 ####[facility] [address] [place], [address] WBC (Bld) [#/Vol] 6.7 10*3/uL Normal 4.4-11.0 [facility] Comment on above: Order Comment: NATALIE Banks. PREVIOUS SPECIMEN REJECTED DUE TOCLOTTED. 10/27/2427 Hermilo R Law. Performed By: #### L 100.0100 ####[facility] [address] [place], [address] Absolute Neut Normal 2.0-7.7 [facility] Comment on above: Result Comment: This specimen has been REJECTED due to Laboratory criteria:Clotted.CHANDAN2 has been notified of need of recollection.10/27/2426 Hermilo R Law Performed By: #### L 500.3400, L501.2450, L100.0100, L500.2500, L503.6005, L501.5200 ####[facility] [address] [facility] [address] HCT Normal 40-54 [facility] Comment on above: Result Comment: This specimen has been REJECTED due to Laboratory criteria:Clotted.CHANDAN2 has been notified of need of recollection.10/27/2426 Hermilo R Law Performed By: #### L 500.3400, L501.2450, L100.0100, L500.2500, L503.6005, L501.5200 ####[facility] [address] [place], [address] HGB Normal 13.0-16.5 [facility] Comment on above: Result Comment: This specimen has been REJECTED due to Laboratory criteria:Clotted.CHANDAN2 has been notified of need of recollection.10/27/2426 Hermilo R Law Performed By: #### L 500.3400, L501.2450, L100.0100, L500.2500, L503.6005, L501.5200 ####[facility] [address] [facility] [address] MCH Normal 27.0-32.0 [facility] Comment on above: Result Comment: This specimen has been REJECTED due to Laboratory criteria:Clotted.FRANKY has been notified of need of recollection.10/27/2426 Hermilo R Law Performed By: #### L 500.3400, L501.2450, L100.0100, L500.2500, L503.6005, L501.5200 ####[facility] [address] [place], [address] MCHC Normal 32-36 [facility] Comment on above: Result Comment: This specimen has been REJECTED due to Laboratory criteria:Clotted.FRANKY has been notified of need of recollection.10/27/2426 Hermilo R Law Performed By: #### L 500.3400, L501.2450, L100.0100, L500.2500, L503.6005, L501.5200 ####[facility] [address] [place], [address] MCV Normal 80-94 [facility] Comment on above: Result Comment: This specimen has been REJECTED due to Laboratory criteria:Clotted.FRANKY has been notified of need of recollection.10/27/2426 Hermilo R Law Performed By: #### L 500.3400, L501.2450, L100.0100, L500.2500, L503.6005, L501.5200 ####[facility] [address] [place], [address] NEUT% Normal 47-70 [facility] Comment on above: Result Comment: This specimen has been REJECTED due to Laboratory criteria:Clotted.FRANKY has been notified of need of recollection.10/27/2426 Hermilo R Law Performed By: #### L 500.3400, L501.2450, L100.0100, L500.2500, L503.6005, L501.5200 ####[facility] [address] [place], [address] PLT Normal 150-450 [facility] Comment on above: Result Comment: This specimen has been REJECTED due to Laboratory criteria:Clotted.CHANDAN2 has been notified of need of recollection.10/27/2426 Hermilo R Law Performed By: #### L 500.3400, L501.2450, L100.0100, L500.2500, L503.6005, L501.5200 ####[facility] [address] [place], [address] RBC Normal 4.6-6.2 [facility] Comment on above: Result Comment: This specimen has been REJECTED due to Laboratory criteria:Clotted.CHANDAN2 has been notified of need of recollection.10/27/2426 Hermilo R Law Performed By: #### L 500.3400, L501.2450, L100.0100, L500.2500, L503.6005, L501.5200 ####[facility] [address] [place], [address] RDW CV Normal 11.6-14.6 [facility] Comment on above: Result Comment: This specimen has been REJECTED due to Laboratory criteria:Clotted.CHANDAN2 has been notified of need of recollection.10/27/2426 Hermilo R Law Performed By: #### L 500.3400, L501.2450, L100.0100, L500.2500, L503.6005, L501.5200 ####[facility] [address] [place], [address] RDW SD Normal 35.1-43.9 [facility] Comment on above: Result Comment: This specimen has been REJECTED due to Laboratory criteria:Clotted.CHANDAN2 has been notified of need of recollection.10/27/2426 Hermilo R Law Performed By: #### L 500.3400, L501.2450, L100.0100, L500.2500, L503.6005, L501.5200 ####[facility] [address] [place], [address] WBC Normal 4.4-11.0 [facility] Comment on above: Result Comment: This specimen has been REJECTED due to Laboratory criteria:Clotted.SHUFF2 has been notified of need of recollection.10/27/24 0027 Hermilo Will Law Performed By: #### L 500.3400, L501.2450, L100.0100, L500.2500, L503.6005, L501.5200 ####[facility] [address] [place], [address] CO2 (BldV) [Moles/Vol]Ordere d By: Bronson Tolentino on 10-27-2024 CO2 [Moles/Vol] 29 mmol/L 23-33 [facility] Carbon dioxide, total [Moles /volume] in Central venous bloodOrdered By: Bronson Tolentino on 10-27-2024 CO2 [Moles/Vol] 20.9 mmol/L Low 21.0-32.0 [facility] Chloride assayOrdered By: Aaliyah Tolentino on 10-27-2024 Chloride [Moles/Vol] 98 mmol/L 98-108 [facility] Emergency Department Summary on 10-27-2024 Emergency Department Summary Normal [facility] Eosinophil percentageOrdered By: Magaly Abdi on 10-27-2024 Eosinophils/100 WBC (Bld) 2.2 % 0-5 [facility] Erythrocyte distribution wid th ratioOrdered By: Magaly Abdi on 10-27-2024 Erythrocyte distribution width (RBC) [Ratio] 13.2 % 11.6-14.6 [facility] Erythrocyte distribution wid th standard deviationOrdered By: Magaly Abdi on 10-27-2024 Erythrocyte distribution width (RBC) [Ratio] 46.2 fl High 35.1-43.9 [facility] Glomerular filtration rate ( GFR) estimation/1.73 sq m using serum, plasma, or whole bOrdered By: Bronson Tolentino on 10-27-2024 GFR/1.73 sq M.predicted among non-blacks MDRD (S/P/Bld) [Vol rate/Area] 85 mL/min/{1.73_m2} >60 [facility] Hematocrit Auto (Bld) [Volum e fraction]Ordered By: Magaly Abdi on 10-27-2024 Hematocrit (Bld) [Volume fraction] 41.6 % 40-54 [facility] Hemoglobin measurementOrdere d By: Magaly Abdi on 10-27-2024 Hemoglobin (Bld) [Mass/Vol] 13.3 g/dL 13.0-16.5 [facility] Immature granulocytes/100 WB C Auto (Bld)Ordered By: Magaly Abdi on 10-27-2024 Immature granulocytes/100 WBC (Bld) 0.400 % 0.0-0.9 [facility] Ketones Test strip Ql (U)Ord ered By: Bronson Tolentino on 10-27-2024 Ketones Ql (U) Negative Negative [facility] Lactic Acidon 10-27-2024 Lactate [Moles/Vol] 1.4 mmol/L Normal 0.0-2.0 [facility] Comment on above: Order Comment: Y Performed By: #### L 500.3400, L501.2450, L100.0100, L500.2500, L503.6005, L501.5200 ####[facility] [address] [place], [place], [address] Lipaseon 10-27-2024 Lipase [Catalytic activity/Vol] 37 U/L Normal 13-75 [facility] Comment on above: Result Comment: Gissell graf note:LIPASE revised reference range effective 22.New Lipase methodology. Expected to produce lower valuesthan the previous assay method.NEW Reference Range: 13 - 75 U/L Performed By: #### L 500.3400, L501.2450, L100.0100, L500.2500, L503.6005, L501.5200 ####[facility] [address] [place], [address] Liver Profileon 10-27-2024 Albumin [Mass/Vol] 3.5 g/dL Normal 3.4-4.8 [facility] Comment on above: Performed By: #### L 500.3400, L501.2450, L100.0100, L500.2500, L503.6005, L501.5200 ####[facility] [address] [place], [address] ALK PHOS 97 U/L Normal 40-129 [facility] Comment on above: Performed By: #### L 500.3400, L501.2450, L100.0100, L500.2500, L503.6005, L501.5200 ####[facility] [address] [place], [address] ALT [Catalytic activity/Vol] 23 U/L Normal <=46 [facility] Comment on above: Result Comment: Hemo lysis present, Results??could be affected.?? Performed By: #### L 500.3400, L501.2450, L100.0100, L500.2500, L503.6005, L501.5200 ####[facility] [address] [place], [address] AST [Catalytic activity/Vol] 44 U/L High <=37 [facility] Comment on above: Result Comment: Hemo lysis present, Results??could be affected.?? Performed By: #### L 500.3400, L501.2450, L100.0100, L500.2500, L503.6005, L501.5200 ####[facility] [address] [place], [address] Bilirubin [Mass/Vol] 0.99 mg/dL Normal 0.00-1.30 [facility] Comment on above: Performed By: #### L 500.3400, L501.2450, L100.0100, L500.2500, L503.6005, L501.5200 ####[facility] [address] [place], [address] Bilirubin.direct [Mass/Vol] 0.17 mg/dL Normal 0.00-0.30 [facility] Comment on above: Result Comment: Hemo lysis present, Results??could be affected.?? Performed By: #### L 500.3400, L501.2450, L100.0100, L500.2500, L503.6005, L501.5200 ####[facility] [address] [place], [address] Globulin (S) [Mass/Vol] 3.1 g/dL Normal 2.2-4.2 [facility] Comment on above: Performed By: #### L 500.3400, L501.2450, L100.0100, L500.2500, L503.6005, L501.5200 ####[facility] [address] [place], [address] T PROT 6.6 g/dL Normal 5.9-8.4 [facility] Comment on above: Performed By: #### L 500.3400, L501.2450, L100.0100, L500.2500, L503.6005, L501.5200 ####[facility] [address] [place], [address] MCV (mean corpuscular volume ) determinationOrdered By: Magaly Abdi on 10-27-2024 MCV (RBC) [Entitic vol] 94.5 fL High 80-94 [facility] Magnesiumon 10-27-2024 Magnesium [Mass/Vol] 1.7 mg/dL Normal 1.5-2.2 [facility] Comment on above: Performed By: #### L 500.3400, L501.2450, L100.0100, L500.2500, L503.6005, L501.5200 ####[facility] [address] [place], [address] Magnesium measurement (mass/ volume)Ordered By: Bronson Tolentino on 10-27-2024 Magnesium (Unsp spec) [Mass/Vol] 1.7 mg/dL 1.5-2.2 [facility] Mean corpuscular hemoglobin (MCH) determinationOrdered By: Magaly Abdi on 10-27-2024 MCH (RBC) [Entitic mass] 30.2 pg 27.0-32.0 [facility] Monocyte percentageOrdered B y: Magaly Abdi on 10-27-2024 Monocytes/100 WBC (Bld) 4.0 % 0-10 [facility] Mucus LM Ql (Urine sed)Order ed By: Bronson Tolentino on 10-27-2024 Mucus Ql (Urine sed) 0 SEEN /hpf [facility] Neutrophil percentageOrdered By: Magaly Abdi on 10-27-2024 Neutrophils/100 WBC (Bld) 78.9 % High 47-70 [facility] Nitrite Test strip Ql (U)Ord ered By: Bronson Tolentino on 10-27-2024 Nitrite Ql (U) Negative Negative [facility] No Panel InformationOrdered By: Bronson Tolentino on 10-27-2024 NADINE [facility] Not entered [facility] 44 U/L High <38 [facility] Platelet countOrdered By: Debra Abdi on 10-27-2024 Platelets (Bld) [#/Vol] 245 10*3/uL 150-450 [facility] Potassium measurement (mass/ volume)Ordered By: Bronson Tolentino on 10-27-2024 Potassium (Unsp spec) [Mass/Vol] 4.2 mmol/L 3.3-5.1 [facility] Protein Test strip Ql (U)Ord ered By: Bronson Tolentino on 10-27-2024 Protein Ql (U) 30 mg/dl High Negative [facility] RBC Auto (Bld) [#/Vol]Ordere d By: Magaly Abdi on 10-27-2024 RBC (Bld) [#/Vol] 4.40 10*6/uL Low 4.6-6.2 [facility] Serum creatinine measurement (mass/volume)Ordered By: Bronson Tolentino on 10-27-2024 Creatinine [Mass/Vol] 0.99 mg/dL 0.70-1.20 [facility] Serum globulin measurementOr dered By: Bronson Tolentino on 10-27-2024 Globulin (S) [Mass/Vol] 3.1 g/dL 2.2-4.2 [facility] Serum glucose measurement (m ass/volume)Ordered By: Bronson Tolentino on 10-27-2024 Glucose [Mass/Vol] 203 mg/dL High 70-99 [facility] Serum or plasma alanine martino otransferase (ALT) measurementOrdered By: Bronson Tolentino on 10-27-2024 ALT [Catalytic activity/Vol] 23 U/L <47 [facility] Serum or plasma albumin brenda urement (mass/volume)Ordered By: Bronson Tolentino on 10-27-2024 Albumin [Mass/Vol] 3.5 g/dL 3.4-4.8 [facility] Serum or plasma alkaline yulia sphatase measurementOrdered By: Bronson Tolentino on 10-27-2024 ALP [Catalytic activity/Vol] 97 U/L 40-129 [facility] Serum or plasma calcium brenda urement (mass/volume)Ordered By: Bronson Tolentino on 10-27-2024 Calcium [Mass/Vol] 8.8 mg/dL 7.6-11.0 [facility] Serum or plasma urea nitroge n measurement (mass/volume)Ordered By: Bronson Tolentino on 10-27-2024 Urea nitrogen [Mass/Vol] 18 mg/dL 4-19 [facility] Sodium levelOrdered By: Roberto Tolentino on 10-27-2024 Sodium [Moles/Vol] 132 mmol/L Low 133-145 [facility] Squamous epithelial cells de tection in urine sediment by light microscopyOrdered By: Bronson Tolentino on 10-27-2024 Epithelial cells.squamous LM Ql (Urine sed) 0 SEEN /hpf 0-5 [facility] Total proteinOrdered By: Renato Tolentino on 10-27-2024 Protein [Mass/Vol] 6.6 g/dL 5.9-8.4 [facility] Urinalysis, Completeon 10-27 WBC 0-5 SEEN Normal 0-5 [facility] Comment on above: Order Comment: COLLE CTOR TO SPECIFY Performed By: #### L 400.0001 ####[facility] [address] [place], [address] BACTERIA 0 SEEN Normal None Seen [facility] Comment on above: Order Comment: ARINA CTOR TO SPECIFY Performed By: #### L 400.0001 ####[facility] [address] [place], [address] EPI,SQUAMOUS 0 SEEN Normal 0-5 [facility] Comment on above: Order Comment: ARINA CTOR TO SPECIFY Performed By: #### L 400.0001 ####[facility] [address] [place], [address] Mucus Ql (Urine sed) 0 SEEN Normal [facility] Comment on above: Order Comment: ARINA CTOR TO SPECIFY Performed By: #### L 400.0001 ####[facility] [address] [place], [address] RBC 0 SEEN Normal 0-5 [facility] Comment on above: Order Comment: ARINA CTOR TO SPECIFY Performed By: #### L 400.0001 ####[facility] [address] [place], [address] Urine clarityOrdered By: Renato Tolentino on 10-27-2024 Clarity (U) Clear Clear [facility] Urine color determinationOrd ered By: Bronson Tolentino on 10-27-2024 Color (U) Yellow Yellow [facility] Urine glucose detectionOrder ed By: Bronson Tolentino on 10-27-2024 Glucose Ql (U) 50 mg/dl High Normal [facility] Urine leukocyte esterase det ection by dipstickOrdered By: Bronson Tolentino on 10-27-2024 Leukocyte esterase Test strip Ql (U) 100 /ul High Negative [facility] Urine pHOrdered By: Bronson lopez on 10-27-2024 pH (U) 6.0 [pH] 5.0 - 8.0 [facility] Urine sediment bacteria coun t by microscopy (number/high power field)Ordered By: Bronson Tolentino on 10-27-2024 Bacteria LM.HPF (Urine sed) [#/Area] 0 /[HPF] None Seen [facility] Urine specific gravity measu rementOrdered By: Bronson Tolentino on 10-27-2024 Specific gravity (U) [Rel density] 1.020 1.002-1.030 [facility] Urine urobilinogen measureme ntOrdered By: Bronson Tolentino on 10-27-2024 Urobilinogen Ql (U) 1 mg/dl High Normal [facility] Venous Blood Gason Blood Gas Type NADINE Normal [facility] Comment on above: Performed By: #### L 9000.0810 ####[facility] [address] [place], [address] CO2 [Moles/Vol] 29 mmol/L Normal 23-33 [facility] Comment on above: Performed By: #### L 9000.0810 ####[facility] [address] [place], [address] HCO3 (Bld) [Moles/Vol] 28 mmol/L High 22-26 [facility] Comment on above: Performed By: #### L 9000.0810 ####[facility] [address] [place], [address] O2 Delivery Dev Not entered [facility] Comment on above: Performed By: #### L 9000.0810 ####[facility] [address] [place], [address] SITE Not entered [facility] Comment on above: Performed By: #### L 9000.0810 ####[facility] [address] [place], [address] VBG BE 3 mmol/L Normal -1.0-3.5 [facility] Comment on above: Performed By: #### L 9000.0810 ####[facility] [address] [place], [address] VBG pCO2 41.9 mmHg Normal 41-51 [facility] Comment on above: Performed By: #### L 9000.0810 ####[facility] [address] [place], [address] VBG pH 7.43 High 7.32-7.42 [facility] Comment on above: Performed By: #### L 9000.0810 ####[facility] [address] [place], [address] VBG PO2 30 mmHg Normal 25-40 [facility] Comment on above: Performed By: #### L 9000.0810 ####[facility] [address] [place], [address] VBG SO2 59 Normal 50-70 [facility] Comment on above: Performed By: #### L 9000.0810 ####[facility] [address] [place], [address] Blood Gas Type NADINE [facility] Comment on above: Performed By: #### L 9000.0810 ####[facility] [address] [place], [address] CO2 [Moles/Vol] 22 mmol/L Low 23-33 [facility] Comment on above: Performed By: #### L 9000.0810 ####[facility] [address] [place], [address] HCO3 (Bld) [Moles/Vol] 21 mmol/L Low 22-26 [facility] Comment on above: Performed By: #### L 9000.0810 ####[facility] [address] [place], [address] O2 Delivery Dev Not entered [facility] Comment on above: Performed By: #### L 9000.0810 ####[facility] [address] [place], [address] SITE Not entered [facility] Comment on above: Performed By: #### L 9000.0810 ####[facility] [address] [place], [address] VBG BE -1 mmol/L Normal -1.0-3.5 [facility] Comment on above: Performed By: #### L 9000.0810 ####[facility] [address] [place], [address] VBG pCO2 23.3 mmHg Low 41-51 [facility] Comment on above: Performed By: #### L 9000.0810 ####[facility] [address] [place], [address] VBG pH 7.57 High 7.32-7.42 [facility] Comment on above: Performed By: #### L 9000.0810 ####[facility] [address] [place], [address] VBG PO2 224 mmHg High 25-40 [facility] Comment on above: Performed By: #### L 9000.0810 ####[facility] [address] [place], [address] VBG SO2 100 High 50-70 [facility] Comment on above: Performed By: #### L 9000.0810 ####[facility] [address] [place], [address] Venous blood base excess asia surementOrdered By: Bronson Tolentino on 10-27-2024 Base excess Calc (BldV) [Moles/Vol] 3 mmol/L -1.0-3.5 [facility] Venous blood bicarbonate asia surementOrdered By: Bronson Tolentino on 10-27-2024 HCO3 (Bld) [Moles/Vol] 28 mmol/L High 22-26 [facility] Venous blood pH measurementO rdered By: Bronson Tolentino on 10-27-2024 pH (BldV) 7.43 [pH] High 7.32-7.42 [facility] Venous blood partial pressur e of carbon dioxide measurementOrdered By: Bronson Tolentino on 10-27-2024 CO2 (BldV) [Partial pressure] 41.9 mm[Hg] 41-51 [facility] Venous blood partial pressur e of oxygen measurementOrdered By: Bronson Tolentino on 10-27-2024 Oxygen (BldV) [Partial pressure] 30 mm[Hg] 25-40 [facility] White blood cell (WBC) count Ordered By: Magaly Abdi on 10-27-2024 WBC (Bld) [#/Vol] 6.7 10*3/uL 4.4-11.0 [facility] White blood cell countOrdere d By: Bronson Tolentino on 10-27-2024 White blood cell count 0-5 SEEN /hpf 0-5 [facility] Bedside Glucoseon 10-26-2024 FINGERSTICK GLU 194 mg/dL High 74-106 [facility] Comment on above: Result Comment: SNEHA DUNCAN OF PATIENT CARE PER NURSING PROTOCOL Performed By: #### L 501.080 ####[facility] [address] [place], [address] Chest PA and Lateralon 10-26 Chest PA and Lateral Normal [facility] Glucose measurement at bedsi deOrdered By: Bronson Tolentino on 10-26-2024 Glucose [Mass/Vol] 194 mg/dL High 74-106 [facility] Absolute lymphocyte countOrd ered By: Devin Curry on 10-23-2024 Lymphocytes Auto (Unsp spec) [#/Vol] 1.48 10*3/uL 0.83-4.51 [facility] Anion gap in Serum or Plasma Ordered By: Devin Curry on 10-23-2024 Anion gap [Moles/Vol] 12 mmol/L 5-15 [facility] Automated lymphocyte count a s percentage of total leukocytesOrdered By: Devin Curry on 10-23-2024 Lymphocytes/100 WBC Auto (Unsp spec) 21.6 % 19- [facility] BUN/creatinine ratioOrdered By: Devin Curry on 10-23-2024 Urea nitrogen/Creatinine [Mass ratio] 18.2 mg/mg - [facility] Basic Metabolic Profile (BMP )on 07-20-2025 BUN/CRE 18.2 RATIO Normal 10-20 [facility] Comment on above: Performed By: #### L 100.0100, L500.2500 ####[facility] [address] [place], [address] Calcium [Mass/Vol] 9.3 mg/dL Normal 7.6-11.0 [facility] Comment on above: Performed By: #### L 100.0100, L500.2500 ####[facility] [address] [place], [address] Chloride [Moles/Vol] 100 mmol/L Normal 98-108 [facility] Comment on above: Performed By: #### L 100.0100, L500.2500 ####[facility] [address] [place], [address] CO2 [Moles/Vol] 26.0 mmol/L Normal 21.0-32.0 [facility] Comment on above: Performed By: #### L 100.0100, L500.2500 ####[facility] [address] [place], [address] Creatinine [Mass/Vol] 1.00 mg/dL Normal 0.70-1.20 [facility] Comment on above: Performed By: #### L 100.0100, L500.2500 ####[facility] [address] [place], [address] ECRCL 89.11 ml/min Normal 50-250 [facility] Comment on above: Performed By: #### L 100.0100, L500.2500 ####[facility] [address] [place], [address] GAP 12 Normal 5-15 [facility] Comment on above: Performed By: #### L 100.0100, L500.2500 ####[facility] [address] [place], [address] GFR/1.73 sq M.predicted among non-blacks MDRD (S/P/Bld) [Vol rate/Area] 84 mL/min/{1.73_m2} Normal >60 [facility] Comment on above: Result Comment: mL/m in/1.73m2 CKD-EPI Creatinine Equation (2020) Performed By: #### L 100.0100, L500.2500 ####[facility] [address] [place], [address] Glucose [Mass/Vol] 256 mg/dL High 70-99 [facility] Comment on above: Performed By: #### L 100.0100, L500.2500 ####[facility] [address] [place], [address] Potassium [Moles/Vol] 3.9 mmol/L Normal 3.3-5.1 [facility] Comment on above: Performed By: #### L 100.0100, L500.2500 ####[facility] [address] [place], [address] Sodium [Moles/Vol] 138 mmol/L Normal 133-145 [facility] Comment on above: Performed By: #### L 100.0100, L500.2500 ####[facility] [address] [place], [address] Urea nitrogen [Mass/Vol] 18 mg/dL Normal 4-19 [facility] Comment on above: Performed By: #### L 100.0100, L500.2500 ####[facility] [address] [place], [address] Basophil percentageOrdered B y: Devin Curry on 10-23-2024 Basophils/100 WBC (Bld) 0.3 % 0-1 [facility] CBC W/Diff, Automatedon 10-05 Absolute Lymph 1.48 X10 3/uL Normal 0.83-4.51 [facility] Comment on above: Performed By: #### L 100.0100, L500.2500 ####[facility] [address] [place], [address] Absolute Neut 4.7 X10 3/uL Normal 2.0-7.7 [facility] Comment on above: Performed By: #### L 100.0100, L500.2500 ####[facility] [address] [place], [address] Basophils/100 WBC (Bld) 0.3 % Normal 0-1 [facility] Comment on above: Performed By: #### L 100.0100, L500.2500 ####[facility] [address] [place], [address] Eosinophils/100 WBC (Bld) 3.4 % Normal 0-5 [facility] Comment on above: Performed By: #### L 100.0100, L500.2500 ####[facility] [address] [place], [address] Erythrocyte distribution width (RBC) [Ratio] 12.8 % Normal 11.6-14.6 [facility] Comment on above: Performed By: #### L 100.0100, L500.2500 ####[facility] [address] [place], [address] Hematocrit (Bld) [Volume fraction] 42.4 % Normal 40-54 [facility] Comment on above: Performed By: #### L 100.0100, L500.2500 ####[facility] [address] [place], [address] Hemoglobin (Bld) [Mass/Vol] 14.0 g/dL Normal 13.0-16.5 [facility] Comment on above: Performed By: #### L 100.0100, L500.2500 ####[facility] [address] [place], [address] IG% 0.100 Normal 0.0-0.9 [facility] Comment on above: Result Comment: IG% - Immature Granulocytes (promyelocytes, myelocytes andmetamyelocytes) > 1% indicates that a LEFT SHIFT is Present. Performed By: #### L 100.0100, L500.2500 ####[facility] [address] [place], [address] Lymphocytes/100 WBC (Bld) 21.6 % Normal 19-41 [facility] Comment on above: Performed By: #### L 100.0100, L500.2500 ####[facility] [address] [place], [address] MCH (RBC) [Entitic mass] 30.8 pg Normal 27.0-32.0 [facility] Comment on above: Performed By: #### L 100.0100, L500.2500 ####[facility] [address] [place], [address] MCHC (RBC) [Mass/Vol] 33.0 g/dL Normal 32-36 [facility] Comment on above: Performed By: #### L 100.0100, L500.2500 ####[facility] [address] [place], [address] MCV (RBC) [Entitic vol] 93.2 fL Normal 80-94 [facility] Comment on above: Performed By: #### L 100.0100, L500.2500 ####[facility] [address] [place], [address] Monocytes/100 WBC (Bld) 6.1 % Normal 0-10 [facility] Comment on above: Performed By: #### L 100.0100, L500.2500 ####[facility] [address] [place], [address] Neutrophils/100 WBC (Bld) 68.5 % Normal 47-70 [facility] Comment on above: Performed By: #### L 100.0100, L500.2500 ####[facility] [address] [place], [address] Nucleated RBC (Bld) [#/Vol] 0 10*3/uL Normal 0-5 [facility] Comment on above: Performed By: #### L 100.0100, L500.2500 ####[facility] [address] [place], [address] Platelet mean volume (Bld) [Entitic vol] 10.0 fL Normal 6.2-12.0 [facility] Comment on above: Performed By: #### L 100.0100, L500.2500 ####[facility] [address] [place], [address] Platelets (Bld) [#/Vol] 255 10*3/uL Normal 150-450 [facility] Comment on above: Performed By: #### L 100.0100, L500.2500 ####[facility] [address] [place], [address] RBC (Bld) [#/Vol] 4.55 10*6/uL Low 4.6-6.2 [facility] Comment on above: Performed By: #### L 100.0100, L500.2500 ####[facility] [address] [place], [address] RDW SD 43.9 fl Normal 35.1-43.9 [facility] Comment on above: Performed By: #### L 100.0100, L500.2500 ####[facility] [address] [place], [address] WBC (Bld) [#/Vol] 6.9 10*3/uL Normal 4.4-11.0 [facility] Comment on above: Performed By: #### L 100.0100, L500.2500 ####[facility] [address] [place], [address] Carbon dioxide, total [Moles /volume] in Central venous bloodOrdered By: Devin Curry on 10-23-2024 CO2 [Moles/Vol] 26.0 mmol/L 21.0-32.0 [facility] Chloride assayOrdered By: Davian Curry on 10-23-2024 Chloride [Moles/Vol] 100 mmol/L 98-108 [facility] Emergency Department Summary on 10-23-2024 Emergency Department Summary Normal [facility] Eosinophil percentageOrdered By: Devin Curry on 10-23-2024 Eosinophils/100 WBC (Bld) 3.4 % 0-5 [facility] Erythrocyte distribution wid th ratioOrdered By: Devin Curry on 10-23-2024 Erythrocyte distribution width (RBC) [Ratio] 12.8 % 11.6-14.6 [facility] Erythrocyte distribution wid th standard deviationOrdered By: Devin Curry on 10-23-2024 Erythrocyte distribution width (RBC) [Ratio] 43.9 fl 35.1-43.9 [facility] Glomerular filtration rate ( GFR) estimation/1.73 sq m using serum, plasma, or whole bOrdered By: Devin Curry on 10-23-2024 GFR/1.73 sq M.predicted among non-blacks MDRD (S/P/Bld) [Vol rate/Area] 84 mL/min/{1.73_m2} >60 [facility] Hematocrit Auto (Bld) [Volum e fraction]Ordered By: Devin Curry on 10-23-2024 Hematocrit (Bld) [Volume fraction] 42.4 % 40-54 [facility] Hemoglobin measurementOrdere d By: Devin Curry on 10-23-2024 Hemoglobin (Bld) [Mass/Vol] 14.0 g/dL 13.0-16.5 [facility] Immature granulocytes/100 WB C Auto (Bld)Ordered By: Devin Curry on 10-23-2024 Immature granulocytes/100 WBC (Bld) 0.100 % 0.0-0.9 [facility] MCV (mean corpuscular volume ) determinationOrdered By: Devin Curry on 10-23-2024 MCV (RBC) [Entitic vol] 93.2 fL 80-94 [facility] Mean corpuscular hemoglobin (MCH) determinationOrdered By: Devin Curry on 10-23-2024 MCH (RBC) [Entitic mass] 30.8 pg 27.0-32.0 [facility] Monocyte percentageOrdered B y: Devin Curry on 10-23-2024 Monocytes/100 WBC (Bld) 6.1 % 0-10 [facility] Neutrophil percentageOrdered By: Devin Curry on 10-23-2024 Neutrophils/100 WBC (Bld) 68.5 % 47-70 [facility] Platelet countOrdered By: Davian Curry on 10-23-2024 Platelets (Bld) [#/Vol] 255 10*3/uL 150-450 [facility] Potassium measurement (mass/ volume)Ordered By: Devin Curry on 10-23-2024 Potassium (Unsp spec) [Mass/Vol] 3.9 mmol/L 3.3-5.1 [facility] RBC Auto (Bld) [#/Vol]Ordere d By: Devin Curry on 10-23-2024 RBC (Bld) [#/Vol] 4.55 10*6/uL Low 4.6-6.2 [facility] Serum creatinine measurement (mass/volume)Ordered By: Devin Curry on 10-23-2024 Creatinine [Mass/Vol] 1.00 mg/dL 0.70-1.20 [facility] Serum glucose measurement (m ass/volume)Ordered By: Devin Curry on 10-23-2024 Glucose [Mass/Vol] 256 mg/dL High 70-99 [facility] Serum or plasma calcium brenda urement (mass/volume)Ordered By: Devin Curry on 10-23-2024 Calcium [Mass/Vol] 9.3 mg/dL 7.6-11.0 [facility] Serum or plasma urea nitroge n measurement (mass/volume)Ordered By: Devin Curry on 10-23-2024 Urea nitrogen [Mass/Vol] 18 mg/dL 4-19 [facility] Sodium levelOrdered By: Devin Curry on 10-23-2024 Sodium [Moles/Vol] 138 mmol/L 133-145 [facility] White blood cell (WBC) count Ordered By: Devin Curry on 10-23-2024 WBC (Bld) [#/Vol] 6.9 10*3/uL 4.4-11.0 [facility] Emergency Department Summary on 10-21-2024 Emergency Department Summary Normal [facility] Absolute lymphocyte countOrd ered By: Valentín Miller on 10-19-2024 Lymphocytes Auto (Unsp spec) [#/Vol] 1.65 10*3/uL 0.83-4.51 [facility] Anion gap in Serum or Plasma Ordered By: Valentín Miller on 10-19-2024 Anion gap [Moles/Vol] 13 mmol/L 5- [facility] Automated lymphocyte count a s percentage of total leukocytesOrdered By: Valentín Miller on 10-19-2024 Lymphocytes/100 WBC Auto (Unsp spec) 24.7 % - [facility] BUN/creatinine ratioOrdered By: Valentín Miller on 10-19-2024 Urea nitrogen/Creatinine [Mass ratio] 16.0 mg/mg 10- [facility] Basic Metabolic Profile (BMP )on 10-19-2024 BUN/CRE 16.0 RATIO Normal - [facility] Comment on above: Performed By: #### L 503.7505, L501.4021, L100.0100, L500.2500 ####[facility] [address] [place], [address] Calcium [Mass/Vol] 9.2 mg/dL Normal 7.6-11.0 [facility] Comment on above: Performed By: #### L 503.7505, L501.4021, L100.0100, L500.2500 ####[facility] [address] [place], [address] Chloride [Moles/Vol] 98 mmol/L Normal 98-108 [facility] Comment on above: Performed By: #### L 503.7505, L501.4021, L100.0100, L500.2500 ####[facility] [address] [place], [address] CO2 [Moles/Vol] 22.6 mmol/L Normal 21.0-32.0 [facility] Comment on above: Performed By: #### L 503.7505, L501.4021, L100.0100, L500.2500 ####[facility] [address] [place], [address] Creatinine [Mass/Vol] 1.19 mg/dL Normal 0.70-1.20 [facility] Comment on above: Performed By: #### L 503.7505, L501.4021, L100.0100, L500.2500 ####[facility] [address] [place], [address] ECRCL 66.79 ml/min Normal 50-250 [facility] Comment on above: Performed By: #### L 503.7505, L501.4021, L100.0100, L500.2500 ####[facility] [address] [place], [address] GAP 13 Normal 5-15 [facility] Comment on above: Performed By: #### L 503.7505, L501.4021, L100.0100, L500.2500 ####[facility] [address] [place], [address] GFR/1.73 sq M.predicted among non-blacks MDRD (S/P/Bld) [Vol rate/Area] 68 mL/min/{1.73_m2} Normal >60 [facility] Comment on above: Result Comment: mL/m in/1.73m2 CKD-EPI Creatinine Equation (2020) Performed By: #### L 503.7505, L501.4021, L100.0100, L500.2500 ####[facility] [address] [place], [address] Glucose [Mass/Vol] 343 mg/dL High 70-99 [facility] Comment on above: Performed By: #### L 503.7505, L501.4021, L100.0100, L500.2500 ####[facility] [address] [place], [address] Potassium [Moles/Vol] 5.5 mmol/L High 3.3-5.1 [facility] Comment on above: Result Comment: Hemo lysis present, Results??could be affected.??Hemolysis present, Results??could be affected.?? Performed By: #### L 503.7505, L501.4021, L100.0100, L500.2500 ####[facility] [address] [place], [address] Sodium [Moles/Vol] 133 mmol/L Normal 133-145 [facility] Comment on above: Performed By: #### L 503.7505, L501.4021, L100.0100, L500.2500 ####[facility] [address] [place], [address] Urea nitrogen [Mass/Vol] 19 mg/dL Normal 4-19 [facility] Comment on above: Performed By: #### L 503.7505, L501.4021, L100.0100, L500.2500 ####[facility] [address] [place], [address] Basophil percentageOrdered B y: Valentín Paul on 10-19-2024 Basophils/100 WBC (Bld) 0.3 % 0-1 [facility] CBC W/Diff, Automatedon 10-04 Absolute Lymph 1.65 X10 3/uL Normal 0.83-4.51 [facility] Comment on above: Performed By: #### L 503.7505, L501.4021, L100.0100, L500.2500 ####[facility] [address] [place], [address] Absolute Neut 4.4 X10 3/uL Normal 2.0-7.7 [facility] Comment on above: Performed By: #### L 503.7505, L501.4021, L100.0100, L500.2500 ####[facility] [address] [place], [address] Basophils/100 WBC (Bld) 0.3 % Normal 0-1 [facility] Comment on above: Performed By: #### L 503.7505, L501.4021, L100.0100, L500.2500 ####[facility] [address] [place], [address] Eosinophils/100 WBC (Bld) 3.1 % Normal 0-5 [facility] Comment on above: Performed By: #### L 503.7505, L501.4021, L100.0100, L500.2500 ####[facility] [address] [place], [address] Erythrocyte distribution width (RBC) [Ratio] 12.6 % Normal 11.6-14.6 [facility] Comment on above: Performed By: #### L 503.7505, L501.4021, L100.0100, L500.2500 ####[facility] [address] [place], [address] Hematocrit (Bld) [Volume fraction] 40.7 % Normal 40-54 [facility] Comment on above: Performed By: #### L 503.7505, L501.4021, L100.0100, L500.2500 ####[facility] [address] [place], [address] Hemoglobin (Bld) [Mass/Vol] 13.7 g/dL Normal 13.0-16.5 [facility] Comment on above: Performed By: #### L 503.7505, L501.4021, L100.0100, L500.2500 ####[facility] [address] [place], [address] IG% 0.100 Normal 0.0-0.9 [facility] Comment on above: Result Comment: IG% - Immature Granulocytes (promyelocytes, myelocytes andmetamyelocytes) > 1% indicates that a LEFT SHIFT is Present. Performed By: #### L 503.7505, L501.4021, L100.0100, L500.2500 ####[facility] [address] [place], [address] Lymphocytes/100 WBC (Bld) 24.7 % Normal 19-41 [facility] Comment on above: Performed By: #### L 503.7505, L501.4021, L100.0100, L500.2500 ####[facility] [address] [place], [address] MCH (RBC) [Entitic mass] 31.2 pg Normal 27.0-32.0 [facility] Comment on above: Performed By: #### L 503.7505, L501.4021, L100.0100, L500.2500 ####[facility] [address] [place], [address] MCHC (RBC) [Mass/Vol] 33.7 g/dL Normal 32-36 [facility] Comment on above: Performed By: #### L 503.7505, L501.4021, L100.0100, L500.2500 ####[facility] [address] [place], [address] MCV (RBC) [Entitic vol] 92.7 fL Normal 80-94 [facility] Comment on above: Performed By: #### L 503.7505, L501.4021, L100.0100, L500.2500 ####[facility] [address] [place], [address] Monocytes/100 WBC (Bld) 6.1 % Normal 0-10 [facility] Comment on above: Performed By: #### L 503.7505, L501.4021, L100.0100, L500.2500 ####[facility] [address] [place], [address] Neutrophils/100 WBC (Bld) 65.7 % Normal 47-70 [facility] Comment on above: Performed By: #### L 503.7505, L501.4021, L100.0100, L500.2500 ####[facility] [address] [place], [address] Nucleated RBC (Bld) [#/Vol] 0 10*3/uL Normal 0-5 [facility] Comment on above: Performed By: #### L 503.7505, L501.4021, L100.0100, L500.2500 ####[facility] [address] [place], [address] Platelet mean volume (Bld) [Entitic vol] 10.0 fL Normal 6.2-12.0 [facility] Comment on above: Performed By: #### L 503.7505, L501.4021, L100.0100, L500.2500 ####[facility] [address] [place], [address] Platelets (Bld) [#/Vol] 241 10*3/uL Normal 150-450 [facility] Comment on above: Performed By: #### L 503.7505, L501.4021, L100.0100, L500.2500 ####[facility] [address] [place], [address] RBC (Bld) [#/Vol] 4.39 10*6/uL Low 4.6-6.2 [facility] Comment on above: Performed By: #### L 503.7505, L501.4021, L100.0100, L500.2500 ####[facility] [address] [place], [address] RDW SD 43.1 fl Normal 35.1-43.9 [facility] Comment on above: Performed By: #### L 503.7505, L501.4021, L100.0100, L500.2500 ####[facility] [address] [place], [address] WBC (Bld) [#/Vol] 6.7 10*3/uL Normal 4.4-11.0 [facility] Comment on above: Performed By: #### L 503.7505, L501.4021, L100.0100, L500.2500 ####[facility] [address] [place], [address] Carbon dioxide, total [Moles /volume] in Central venous bloodOrdered By: Valentín Miller on 10-19-2024 CO2 [Moles/Vol] 22.6 mmol/L 21.0-32.0 [facility] Chest 1 View (Portable)on Chest 1 View (Portable) Normal [facility] Chloride assayOrdered By: wil Miller on 10-19-2024 Chloride [Moles/Vol] 98 mmol/L 98-108 [facility] Emergency Department Summary on 10-19-2024 Emergency Department Summary Normal [facility] Eosinophil percentageOrdered By: Valentín Miller on 10-19-2024 Eosinophils/100 WBC (Bld) 3.1 % 0-5 [facility] Erythrocyte distribution wid th ratioOrdered By: Valentín Miller on 10-19-2024 Erythrocyte distribution width (RBC) [Ratio] 12.6 % 11.6-14.6 [facility] Erythrocyte distribution wid th standard deviationOrdered By: Valentín Miller on 10-19-2024 Erythrocyte distribution width (RBC) [Ratio] 43.1 fl 35.1-43.9 [facility] Glomerular filtration rate ( GFR) estimation/1.73 sq m using serum, plasma, or whole bOrdered By: Valentín Miller on 10-19-2024 GFR/1.73 sq M.predicted among non-blacks MDRD (S/P/Bld) [Vol rate/Area] 68 mL/min/{1.73_m2} >60 [facility] Hematocrit Auto (Bld) [Volum e fraction]Ordered By: Valentín Miller on 10-19-2024 Hematocrit (Bld) [Volume fraction] 40.7 % 40-54 [facility] Hemoglobin measurementOrdere d By: Valentín Miller on 10-19-2024 Hemoglobin (Bld) [Mass/Vol] 13.7 g/dL 13.0-16.5 [facility] Immature granulocytes/100 WB C Auto (Bld)Ordered By: Valentín Miller on 10-19-2024 Immature granulocytes/100 WBC (Bld) 0.100 % 0.0-0.9 [facility] Influenza virus A and B and SARS-CoV-2 (COVID-19) and Respiratory syncytial virus RNAOrdered By: Valentín Miller on 10-19-2024 SARS-CoV-2 (COVID-19) RNA HAYDER+probe Ql (Unsp spec) [facility] L499.0042on 10-19-2024 Trop T High Sen 27 ng/L High <=22 [facility] Comment on above: Performed By: #### L 499.0042 ####[facility] [address] [place], [address] L499.0043on 10-19-2024 Trop T High Sen 26 ng/L High <=22 [facility] Comment on above: Performed By: #### L 499.0043 ####[facility] [address] [place], [address] L501.4021on 10-19-2024 Trop T High Sen 25 ng/L High <=22 [facility] Comment on above: Result Comment: Hemo lysis present, Results??could be affected.??Hemolysis present, Results??could be affected.?? Performed By: #### L 503.7505, L501.4021, L100.0100, L500.2500 ####[facility] [address] [place], [address] L503.7505on 10-19-2024 Natriuretic peptide B (Bld) [Mass/Vol] 4100 pg/mL High <=900 [facility] Comment on above: Result Comment: Hear t Failure Unlikely: < 300 pg/mLHeart Failure Likely< 50 Years: > 450 pg/mL50-75 Years: > 900 pg/mL>75 Years: > 1800 pg/mL Performed By: #### L 503.7505, L501.4021, L100.0100, L500.2500 ####[facility] [address] [place], [address] M100.678on 10-19-2024 M100.678 Pending SARS-CoV-2 (COVID 19) Negative INFLUENZA A Negative INFLUENZA B Negative RSV PCR Negative Normal [facility] Comment on above: Performed By: #### M 100.678 ####[facility] [address] [place], [address] MCV (mean corpuscular volume ) determinationOrdered By: Valentín Miller on 10-19-2024 MCV (RBC) [Entitic vol] 92.7 fL 80-94 [facility] Mean corpuscular hemoglobin (MCH) determinationOrdered By: Valentín Miller on 10-19-2024 MCH (RBC) [Entitic mass] 31.2 pg 27.0-32.0 [facility] Monocyte percentageOrdered B y: Valentín Miller on 10-19-2024 Monocytes/100 WBC (Bld) 6.1 % 0-10 [facility] Natriuretic peptide.B prohor parris N-Terminal [Mass/volume] in Serum or PlasmaOrdered By: Valentín Miller on 10-19-2024 Natriuretic peptide.B prohormone N-Terminal [Mass/Vol] 4100 pg/mL High <900 [facility] Neutrophil percentageOrdered By: Valentín Miller on 10-19-2024 Neutrophils/100 WBC (Bld) 65.7 % 47-70 [facility] Platelet countOrdered By: Ana Miller on 10-19-2024 Platelets (Bld) [#/Vol] 241 10*3/uL 150-450 [facility] Potassium measurement (mass/ volume)Ordered By: Valentín Miller on 10-19-2024 Potassium (Unsp spec) [Mass/Vol] 5.5 mmol/L High 3.3-5.1 [facility] RBC Auto (Bld) [#/Vol]Ordere d By: Valentín Miller on 10-19-2024 RBC (Bld) [#/Vol] 4.39 10*6/uL Low 4.6-6.2 [facility] Serum creatinine measurement (mass/volume)Ordered By: Valentín Miller on 10-19-2024 Creatinine [Mass/Vol] 1.19 mg/dL 0.70-1.20 [facility] Serum glucose measurement (m ass/volume)Ordered By: Valentín Miller on 10-19-2024 Glucose [Mass/Vol] 343 mg/dL High 70-99 [facility] Serum or plasma calcium brenda urement (mass/volume)Ordered By: Valentín Miller on 10-19-2024 Calcium [Mass/Vol] 9.2 mg/dL 7.6-11.0 [facility] Serum or plasma urea nitroge n measurement (mass/volume)Ordered By: Valentín Miller on 10-19-2024 Urea nitrogen [Mass/Vol] 19 mg/dL 4-19 [facility] Sodium levelOrdered By: Uli Miller on 10-19-2024 Sodium [Moles/Vol] 133 mmol/L 133-145 [facility] Troponin T.cardiac [Mass/vol ume] in Serum or Plasma by High sensitivity methodOrdered By: Valentín Miller on 10-19-2024 Troponin T.cardiac High sensitivity method [Mass/Vol] 26 ng/L High <22 [facility] Troponin T.cardiac High sensitivity method [Mass/Vol] 27 ng/L High <22 [facility] Troponin T.cardiac High sensitivity method [Mass/Vol] 25 ng/L High <22 [facility] White blood cell (WBC) count Ordered By: Valentín Miller on 10-19-2024 WBC (Bld) [#/Vol] 6.7 10*3/uL 4.4-11.0 [facility] Cardiology Visit Reporton Cardiology Visit Report Normal [facility] Bedside Glucoseon 09-21-2024 FINGERSTICK GLU 223 mg/dL High 74-106 [facility] Comment on above: Result Comment: SNEHA GEMENT OF PATIENT CARE PER NURSING PROTOCOL Performed By: #### L 501.080 ####[facility] [address] [place], [address] FINGERSTICK GLU 197 mg/dL High 74-106 [facility] Comment on above: Result Comment: SNEHA GEMENT OF PATIENT CARE PER NURSING PROTOCOL Performed By: #### L 501.080 ####[facility] [address] [place], [address] FINGERSTICK GLU 163 mg/dL High 74-106 [facility] Comment on above: Result Comment: SNEHA GEMENT OF PATIENT CARE PER NURSING PROTOCOL Performed By: #### L 501.080 ####[facility] [address] [place], [address] Calculated very low density lipoprotein (VLDL) cholesterol measurementOrdered By: Seth Carrington on 09-21-2024 Calculated very low density lipoprotein (VLDL) cholesterol measurement 31 mg/dL 5-40 [facility] Discharge Instructionon 09-04 Discharge Instruction Normal [facility] Gl[facility] deOrdered By: Donna Wolff on 09-21-2024 Glucose [Mass/Vol] 223 mg/dL High 74-106 [facility] LDL calc ser/plasOrdered By: Seth Carrington on 09-21-2024 Cholesterol in LDL [Mass/Vol] 18 mg/dL [facility] Lipid Profileon 09-21-2024 CHOL:HDL 2.11 Normal [facility] Comment on above: Performed By: #### L 500.4100 ####[facility] [address] [place], [address] Cholesterol [Mass/Vol] 93 mg/dL Normal <=200 [facility] Comment on above: Result Comment: Chol esterol level, Desirable <200 mg/dLBorderline high cholesterol 200-239 mg/dLHigh cholesterol >=240 mg/dLRecommendations of the NCEP Adult Treatment Panel for thefollowing risk-cutoff thresholds for the [place] Americanpopulation. Performed By: #### L 500.4100 ####[facility] [address] [place], [address] Cholesterol in HDL [Mass/Vol] 44 mg/dL Normal [facility] Comment on above: Result Comment: Audrey onal Cholesterol Education Program (NCEP) guidelines:<40 mg/dL: Low HDL-cholesterol (major risk factor for CHD)>= 60 mg/dL: High HDL-cholesterol (negative risk factor forCHD)HDL-cholesterol is affected by a number of factors, e.g.smoking, exercise, hormones, sex and age. Performed By: #### L 500.4100 ####[facility] [address] [place], [address] Cholesterol in LDL [Mass/Vol] 18 mg/dL Normal [facility] Comment on above: Result Comment: Bord laoehb=378-336 mg/dL Higher Flcz=981 mg/dL or greater Performed By: #### L 500.4100 ####[facility] [address] [place], [address] Cholesterol in VLDL [Mass/Vol] 31 mg/dL Normal 5-40 [facility] Comment on above: Performed By: #### L 500.4100 ####[facility] [address] [place], [address] Triglyceride [Mass/Vol] 155 mg/dL Normal [facility] Comment on above: Result Comment: The drugs N-Acetylcysteine and Metamizole may falselydepress this assay.Normal range: <150 mg/dLBorderline High: 150-199 mg/dLHigh: 200-499 mg/dLVery High: >500 mg/dL Performed By: #### L 500.4100 ####[facility] [address] [place], [address] Serum or plasma cholesterol in HDL measurement (mass/volume)Ordered By: Seth Carrington on 09-21-2024 Cholesterol in HDL [Mass/Vol] 44 mg/dL >40 [facility] Serum or plasma cholesterol measurement (mass/volume)Ordered By: Seth Carrington on 09-21-2024 Cholesterol [Mass/Vol] 93 mg/dL <201 [facility] Anion gap in Serum or Plasma Ordered By: Seth Carrington on 09-20-2024 Anion gap [Moles/Vol] 11 mmol/L 5-15 [facility] BUN/creatinine ratioOrdered By: Seth Carrington on 09-20-2024 Urea nitrogen/Creatinine [Mass ratio] 17.8 mg/mg - [facility] Basic Metabolic Profile (BMP )on 09-20-2024 BUN/CRE 17.8 RATIO Normal - [facility] Comment on above: Performed By: #### L 500.2500 ####[facility] [address] [place], [address] Calcium [Mass/Vol] 9.4 mg/dL Normal 7.6-11.0 [facility] Comment on above: Performed By: #### L 500.2500 ####[facility] [address] [place], [address] Chloride [Moles/Vol] 100 mmol/L Normal 98-108 [facility] Comment on above: Performed By: #### L 500.2500 ####[facility] [address] [place], [address] CO2 [Moles/Vol] 25.3 mmol/L Normal 21.0-32.0 [facility] Comment on above: Performed By: #### L 500.2500 ####[facility] [address] [place], [address] Creatinine [Mass/Vol] 1.11 mg/dL Normal 0.70-1.20 [facility] Comment on above: Performed By: #### L 500.2500 ####[facility] [address] [place], [address] ECRCL 71.61 ml/min Normal 50-250 [facility] Comment on above: Performed By: #### L 500.2500 ####[facility] [address] [place], [address] GAP 11 Normal 5-15 [facility] Comment on above: Performed By: #### L 500.2500 ####[facility] [address] [place], [address] GFR/1.73 sq M.predicted among non-blacks MDRD (S/P/Bld) [Vol rate/Area] 74 mL/min/{1.73_m2} Normal >60 [facility] Comment on above: Result Comment: mL/m in/1.73m2 CKD-EPI Creatinine Equation (2020) Performed By: #### L 500.2500 ####[facility] [address] [place], [address] Glucose [Mass/Vol] 148 mg/dL High 70-99 [facility] Comment on above: Performed By: #### L 500.2500 ####[facility] [address] [place], [address] Potassium [Moles/Vol] 4.0 mmol/L Normal 3.3-5.1 [facility] Comment on above: Performed By: #### L 500.2500 ####[facility] [address] [place], [address] Sodium [Moles/Vol] 136 mmol/L Normal 133-145 [facility] Comment on above: Performed By: #### L 500.2500 ####[facility] [address] [place], [address] Urea nitrogen [Mass/Vol] 20 mg/dL High 4-19 [facility] Comment on above: Performed By: #### L 500.2500 ####[facility] [address] [place], [address] Bedside Glucoseon 09-20-2024 FINGERSTICK GLU 152 mg/dL High 74-106 [facility] Comment on above: Result Comment: SNEHA GEMENT OF PATIENT CARE PER NURSING PROTOCOL Performed By: #### L 501.080 ####[facility] [address] [facility] [address] FINGERSTICK GLU 190 mg/dL High 74-106 [facility] Comment on above: Result Comment: SNEHA GEMENT OF PATIENT CARE PER NURSING PROTOCOL Performed By: #### L 501.080 ####[facility] [address] [place], [address] FINGERSTICK GLU 246 mg/dL High 74-106 [facility] Comment on above: Result Comment: SNEHA GEMENT OF PATIENT CARE PER NURSING PROTOCOL Performed By: #### L 501.080 ####[facility] [address] [facility] [address] FINGERSTICK GLU 154 mg/dL High [facility]106 [facility] Comment on above: Result Comment: SNEHA GEMENT OF PATIENT CARE PER NURSING PROTOCOL Performed By: #### L 501.080 ####[facility] [address] [facility] [address] Carbon dioxide, total [Moles /volume] in Central venous bloodOrdered By: Seth Carrington on 09-20-2024 CO2 [Moles/Vol] 25.3 mmol/L 21.0-32.0 [facility] Chloride assayOrdered By: Carol Carrington on 09-20-2024 Chloride [Moles/Vol] 100 mmol/L 98-108 [facility] Electrocardiogram reportOrde red By: Calos Quinn on 09-20-2024 EKG study [facility] Work Phone: Glomerular filtration rate ( GFR) estimation/1.73 sq m using serum, plasma, or whole bOrdered By: Seth Carrington on 09-20-2024 GFR/1.73 sq M.predicted among non-blacks MDRD (S/P/Bld) [Vol rate/Area] 74 mL/min/{1.73_m2} >60 [facility] Potassium measurement (mass/ volume)Ordered By: Seth Carrington on 09-20-2024 Potassium (Unsp spec) [Mass/Vol] 4.0 mmol/L 3.3-5.1 [facility] Serum creatinine measurement (mass/volume)Ordered By: Seth Carrington on 09-20-2024 Creatinine [Mass/Vol] 1.11 mg/dL 0.70-1.20 [facility] Serum glucose measurement (m ass/volume)Ordered By: Seth Carrington on 09-20-2024 Glucose [Mass/Vol] 148 mg/dL High 70-99 [facility] Serum or plasma calcium brenda urement (mass/volume)Ordered By: Seth Carrington on 09-20-2024 Calcium [Mass/Vol] 9.4 mg/dL 7.6-11.0 [facility] Serum or plasma urea nitroge n measurement (mass/volume)Ordered By: Seth Carrington on 09-20-2024 Urea nitrogen [Mass/Vol] 20 mg/dL High 4-19 [facility] Sodium levelOrdered By: Seth Carrington on 09-20-2024 Sodium [Moles/Vol] 136 mmol/L 133-145 [facility] Basic Metabolic Profile (BMP )on 09-19-2024 BUN/CRE 18.5 RATIO Normal 10-20 [facility] Comment on above: Performed By: #### L 500.2500, L100.0500 ####[facility] [address] [place], [address] Calcium [Mass/Vol] 9.4 mg/dL Normal 7.6-11.0 [facility] Comment on above: Performed By: #### L 500.2500, L100.0500 ####[facility] [address] [place], [address] Chloride [Moles/Vol] 99 mmol/L Normal 98-108 [facility] Comment on above: Performed By: #### L 500.2500, L100.0500 ####[facility] [address] [place], [address] CO2 [Moles/Vol] 24.3 mmol/L Normal 21.0-32.0 [facility] Comment on above: Performed By: #### L 500.2500, L100.0500 ####[facility] [address] [place], [address] Creatinine [Mass/Vol] 1.13 mg/dL Normal 0.70-1.20 [facility] Comment on above: Performed By: #### L 500.2500, L100.0500 ####[facility] [address] [place], [address] ECRCL 70.34 ml/min Normal 50-250 [facility] Comment on above: Performed By: #### L 500.2500, L100.0500 ####[facility] [address] [place], [address] GAP 13 Normal 5-15 [facility] Comment on above: Performed By: #### L 500.2500, L100.0500 ####[facility] [address] [place], [address] GFR/1.73 sq M.predicted among non-blacks MDRD (S/P/Bld) [Vol rate/Area] 73 mL/min/{1.73_m2} Normal >60 [facility] Comment on above: Result Comment: mL/m in/1.73m2 CKD-EPI Creatinine Equation (2020) Performed By: #### L 500.2500, L100.0500 ####[facility] [address] [place], [address] Glucose [Mass/Vol] 187 mg/dL High 70-99 [facility] Comment on above: Performed By: #### L 500.2500, L100.0500 ####[facility] [address] [place], [address] Potassium [Moles/Vol] 3.7 mmol/L Normal 3.3-5.1 [facility] Comment on above: Performed By: #### L 500.2500, L100.0500 ####[facility] [address] [place], [address] Sodium [Moles/Vol] 136 mmol/L Normal 133-145 [facility] Comment on above: Performed By: #### L 500.2500, L100.0500 ####[facility] [address] [place], [address] Urea nitrogen [Mass/Vol] 21 mg/dL High 4-19 [facility] Comment on above: Performed By: #### L 500.2500, L100.0500 ####[facility] [address] [place], [address] Bedside Glucoseon 09-19-2024 FINGERSTICK GLU 198 mg/dL High 74-106 [facility] Comment on above: Result Comment: SNEHA GEMENT OF PATIENT CARE PER NURSING PROTOCOL Performed By: #### L 501.080 ####[facility] [address] [place], [address] FINGERSTICK GLU 170 mg/dL High 74-106 [facility] Comment on above: Result Comment: SNEHA GEMENT OF PATIENT CARE PER NURSING PROTOCOL Performed By: #### L 501.080 ####[facility] [address] [place], [address] FINGERSTICK GLU 193 mg/dL High 74-106 [facility] Comment on above: Result Comment: SNEHA GEMENT OF PATIENT CARE PER NURSING PROTOCOL Performed By: #### L 501.080 ####[facility] [address] [place], [address] FINGERSTICK GLU 163 mg/dL High 74-106 [facility] Comment on above: Result Comment: SNEHA GEMENT OF PATIENT CARE PER NURSING PROTOCOL Performed By: #### L 501.080 ####[facility] [address] [place], [address] CBC-Complete Blood Cnt No Guera chou 09-19-2024 Erythrocyte distribution width (RBC) [Ratio] 12.5 % Normal 11.6-14.6 [facility] Comment on above: Performed By: #### L 500.2500, L100.0500 ####[facility] [address] [place], [address] Hematocrit (Bld) [Volume fraction] 44.2 % Normal 40-54 [facility] Comment on above: Performed By: #### L 500.2500, L100.0500 ####[facility] [address] [place], [address] Hemoglobin (Bld) [Mass/Vol] 14.8 g/dL Normal 13.0-16.5 [facility] Comment on above: Performed By: #### L 500.2500, L100.0500 ####[facility] [address] [place], [address] MCH (RBC) [Entitic mass] 31.1 pg Normal 27.0-32.0 [facility] Comment on above: Performed By: #### L 500.2500, L100.0500 ####[facility] [address] [place], [address] MCHC (RBC) [Mass/Vol] 33.5 g/dL Normal 32-36 [facility] Comment on above: Performed By: #### L 500.2500, L100.0500 ####[facility] [address] [place], [address] MCV (RBC) [Entitic vol] 92.9 fL Normal 80-94 [facility] Comment on above: Performed By: #### L 500.2500, L100.0500 ####[facility] [address] [place], [address] Platelet mean volume (Bld) [Entitic vol] 9.5 fL Normal 6.2-12.0 [facility] Comment on above: Performed By: #### L 500.2500, L100.0500 ####[facility] [address] [place], [address] Platelets (Bld) [#/Vol] 297 10*3/uL Normal 150-450 [facility] Comment on above: Performed By: #### L 500.2500, L100.0500 ####[facility] [address] [place], [address] RBC (Bld) [#/Vol] 4.76 10*6/uL Normal 4.6-6.2 [facility] Comment on above: Performed By: #### L 500.2500, L100.0500 ####[facility] [address] [place], [address] RDW SD 43.1 fl Normal 35.1-43.9 [facility] Comment on above: Performed By: #### L 500.2500, L100.0500 ####[facility] [address] [place], [address] WBC (Bld) [#/Vol] 7.7 10*3/uL Normal 4.4-11.0 [facility] Comment on above: Performed By: #### L 500.2500, L100.0500 ####[facility] [address] [place], [address] Erythrocyte distribution wid th ratioOrdered By: Clinton Soares on 09-19-2024 Erythrocyte distribution width (RBC) [Ratio] 12.5 % 11.6-14.6 [facility] Erythrocyte distribution wid th standard deviationOrdered By: Clinton Soares on 09-19-2024 Erythrocyte distribution width (RBC) [Ratio] 43.1 fl 35.1-43.9 [facility] Hematocrit Auto (Bld) [Volum e fraction]Ordered By: Clinton Soares on 09-19-2024 Hematocrit (Bld) [Volume fraction] 44.2 % 40-54 [facility] Hemoglobin measurementOrdere d By: Clinton Soares on 09-19-2024 Hemoglobin (Bld) [Mass/Vol] 14.8 g/dL 13.0-16.5 [facility] Limited echocardiogram repor tOrdered By: Calos Quinn on 09-19-2024 Study report [facility] Work Phone: MCV (mean corpuscular volume ) determinationOrdered By: Clinton Soares on 09-19-2024 MCV (RBC) [Entitic vol] 92.9 fL 80-94 [facility] Mean corpuscular hemoglobin (MCH) determinationOrdered By: Clinton Soares on 09-19-2024 MCH (RBC) [Entitic mass] 31.1 pg 27.0-32.0 [facility] Platelet countOrdered By: Buzz Soarse on 09-19-2024 Platelets (Bld) [#/Vol] 297 10*3/uL 150-450 [facility] RBC Auto (Bld) [#/Vol]Ordere d By: Clinton Soares on 09-19-2024 RBC (Bld) [#/Vol] 4.76 10*6/uL 4.6-6.2 [facility] White blood cell (WBC) count Ordered By: Clinton Soares on 09-19-2024 WBC (Bld) [#/Vol] 7.7 10*3/uL 4.4-11.0 [facility] 12 Lead EKGon 09-18-2024 12 Lead EKG Normal [facility] Absolute lymphocyte countOrd ered By: Saúl Aguilar on 09-18-2024 Lymphocytes Auto (Unsp spec) [#/Vol] 2.05 10*3/uL 0.83-4.51 [facility] Anion gap in Serum or Plasma Ordered By: Saúl Aguilar on 09-18-2024 Anion gap [Moles/Vol] 12 mmol/L -15 [facility] Automated lymphocyte count a s percentage of total leukocytesOrdered By: Saúl Aguilar on 09-18-2024 Lymphocytes/100 WBC Auto (Unsp spec) 27.0 % 19-41 [facility] BUN/creatinine ratioOrdered By: Saúl Aguilar on 09-18-2024 Urea nitrogen/Creatinine [Mass ratio] 16.5 mg/mg 10-20 [facility] Basic Metabolic Profile (BMP )on 09-18-2024 BUN/CRE 16.5 RATIO Normal - [facility] Comment on above: Performed By: #### L 500.2500, L503.7505 ####[facility] [address] [place], [address] Calcium [Mass/Vol] 9.3 mg/dL Normal 7.6-11.0 [facility] Comment on above: Performed By: #### L 500.2500, L503.7505 ####[facility] [address] [place], [address] Chloride [Moles/Vol] 105 mmol/L Normal 98-108 [facility] Comment on above: Performed By: #### L 500.2500, L503.7505 ####[facility] [address] [place], [address] CO2 [Moles/Vol] 22.3 mmol/L Normal 21.0-32.0 [facility] Comment on above: Performed By: #### L 500.2500, L503.7505 ####[facility] [address] [place], [address] Creatinine [Mass/Vol] 1.01 mg/dL Normal 0.70-1.20 [facility] Comment on above: Performed By: #### L 500.2500, L503.7505 ####[facility] [address] [place], [address] GAP 12 Normal 5-15 [facility] Comment on above: Performed By: #### L 500.2500, L503.7505 ####[facility] [address] [place], [address] GFR/1.73 sq M.predicted among non-blacks MDRD (S/P/Bld) [Vol rate/Area] 83 mL/min/{1.73_m2} Normal >60 [facility] Comment on above: Result Comment: mL/m in/1.73m2 CKD-EPI Creatinine Equation (2020) Performed By: #### L 500.2500, L503.7505 ####[facility] [address] [place], [address] Glucose [Mass/Vol] 184 mg/dL High 70-99 [facility] Comment on above: Performed By: #### L 500.2500, L503.7505 ####[facility] [address] [place], [address] Potassium [Moles/Vol] 5.0 mmol/L Normal 3.3-5.1 [facility] Comment on above: Result Comment: Hemo lysis present, Results??could be affected.?? Performed By: #### L 500.2500, L503.7505 ####[facility] [address] [place], [address] Sodium [Moles/Vol] 139 mmol/L Normal 133-145 [facility] Comment on above: Performed By: #### L 500.2500, L503.7505 ####[facility] [address] [place], [address] Urea nitrogen [Mass/Vol] 17 mg/dL Normal 4-19 [facility] Comment on above: Performed By: #### L 500.2500, L503.7505 ####[facility] [address] [place], [address] Basophil percentageOrdered B y: Saúl Aguilar on 09-18-2024 Basophils/100 WBC (Bld) 0.4 % 0-1 [facility] Bedside Glucoseon 09-18-2024 FINGERSTICK GLU 327 mg/dL High 74-106 [facility] Comment on above: Result Comment: SNEHA PERLA OF PATIENT CARE PER NURSING PROTOCOL Performed By: #### L 501.080 ####[facility] [address] [place], [address] FINGERSTICK GLU 207 mg/dL High 74-106 [facility] Comment on above: Result Comment: SNEHA DUNCAN OF PATIENT CARE PER NURSING PROTOCOL Performed By: #### L 501.080 ####[facility] [address] [place], [address] CBC W/Diff, Automatedon 06-04 10-2024 Absolute Lymph 2.05 X10 3/uL Normal 0.83-4.51 [facility] Comment on above: Performed By: #### L 501.4021, L100.0100 ####[facility] [address] [place], [address] Absolute Neut 4.7 X10 3/uL Normal 2.0-7.7 [facility] Comment on above: Performed By: #### L 501.4021, L100.0100 ####[facility] [address] [place], [address] Basophils/100 WBC (Bld) 0.4 % Normal 0-1 [facility] Comment on above: Performed By: #### L 501.4021, L100.0100 ####[facility] [address] [place], [address] Eosinophils/100 WBC (Bld) 3.7 % Normal 0-5 [facility] Comment on above: Performed By: #### L 501.4021, L100.0100 ####[facility] [address] [place], [address] Erythrocyte distribution width (RBC) [Ratio] 12.9 % Normal 11.6-14.6 [facility] Comment on above: Performed By: #### L 501.4021, L100.0100 ####[facility] [address] [place], [address] Hematocrit (Bld) [Volume fraction] 44.4 % Normal 40-54 [facility] Comment on above: Performed By: #### L 501.4021, L100.0100 ####[facility] [address] [place], [address] Hemoglobin (Bld) [Mass/Vol] 14.8 g/dL Normal 13.0-16.5 [facility] Comment on above: Performed By: #### L 501.4021, L100.0100 ####[facility] [address] [place], [address] IG% 0.300 Normal 0.0-0.9 [facility] Comment on above: Result Comment: IG% - Immature Granulocytes (promyelocytes, myelocytes andmetamyelocytes) > 1% indicates that a LEFT SHIFT is Present. Performed By: #### L 501.4021, L100.0100 ####[facility] [address] [place], [address] Lymphocytes/100 WBC (Bld) 27.0 % Normal 19-41 [facility] Comment on above: Performed By: #### L 501.4021, L100.0100 ####[facility] [address] [place], [address] MCH (RBC) [Entitic mass] 31.9 pg Normal 27.0-32.0 [facility] Comment on above: Performed By: #### L 501.4021, L100.0100 ####[facility] [address] [place], [address] MCHC (RBC) [Mass/Vol] 33.3 g/dL Normal 32-36 [facility] Comment on above: Performed By: #### L 501.4021, L100.0100 ####[facility] [address] [place], [address] MCV (RBC) [Entitic vol] 95.7 fL High 80-94 [facility] Comment on above: Performed By: #### L 501.4021, L100.0100 ####[facility] [address] [place], [address] Monocytes/100 WBC (Bld) 6.7 % Normal 0-10 [facility] Comment on above: Performed By: #### L 501.4021, L100.0100 ####[facility] [address] [place], [address] Neutrophils/100 WBC (Bld) 61.9 % Normal 47-70 [facility] Comment on above: Performed By: #### L 501.4021, L100.0100 ####[facility] [address] [place], [address] Nucleated RBC (Bld) [#/Vol] 0 10*3/uL Normal 0-5 [facility] Comment on above: Performed By: #### L 501.4021, L100.0100 ####[facility] [address] [place], [address] Platelet mean volume (Bld) [Entitic vol] 9.5 fL Normal 6.2-12.0 [facility] Comment on above: Performed By: #### L 501.4021, L100.0100 ####[facility] [address] [place], [address] Platelets (Bld) [#/Vol] 276 10*3/uL Normal 150-450 [facility] Comment on above: Performed By: #### L 501.4021, L100.0100 ####[facility] [address] [place], [address] RBC (Bld) [#/Vol] 4.64 10*6/uL Normal 4.6-6.2 [facility] Comment on above: Performed By: #### L 501.4021, L100.0100 ####[facility] [address] [place], [address] RDW SD 45.1 fl High 35.1-43.9 [facility] Comment on above: Performed By: #### L 501.4021, L100.0100 ####[facility] [address] [place], [address] WBC (Bld) [#/Vol] 7.6 10*3/uL Normal 4.4-11.0 [facility] Comment on above: Performed By: #### L 501.4021, L100.0100 ####[facility] [address] [place], [address] Carbon dioxide, total [Moles /volume] in Central venous bloodOrdered By: Saúl Aguilar on 09-18-2024 CO2 [Moles/Vol] 22.3 mmol/L 21.0-32.0 [facility] Chest 1 View (Portable)on Chest 1 View (Portable) Normal [facility] Chloride assayOrdered By: Chacho Aguilar on 09-18-2024 Chloride [Moles/Vol] 105 mmol/L 98-108 [facility] Echo, Limited Studyon 2024 Echo, Limited Study Normal [facility] Emergency Department Summary on 09-18-2024 Emergency Department Summary Normal [facility] Eosinophil percentageOrdered By: Saúl Aguilar on 09-18-2024 Eosinophils/100 WBC (Bld) 3.7 % 0-5 [facility] Erythrocyte distribution wid th ratioOrdered By: Saúl Aguilar on 09-18-2024 Erythrocyte distribution width (RBC) [Ratio] 12.9 % 11.6-14.6 [facility] Erythrocyte distribution wid th standard deviationOrdered By: Saúl Aguilar on 09-18-2024 Erythrocyte distribution width (RBC) [Ratio] 45.1 fl High 35.1-43.9 [facility] Glomerular filtration rate ( GFR) estimation/1.73 sq m using serum, plasma, or whole bOrdered By: Saúl Aguilar on 09-18-2024 GFR/1.73 sq M.predicted among non-blacks MDRD (S/P/Bld) [Vol rate/Area] 83 mL/min/{1.73_m2} >60 [facility] H AND P Exam - Hospitaliston 09-18-2024 H&P Exam - Hospitalist Normal [facility] Hematocrit Auto (Bld) [Volum e fraction]Ordered By: Saúl Aguilar on 09-18-2024 Hematocrit (Bld) [Volume fraction] 44.4 % 40-54 [facility] Hemoglobin A1con 09-18-2024 HbA1c (Bld) [Mass fraction] 9.9 % High <=5.6 [facility] Comment on above: Result Comment: Norm al < 5.7 % Prediabetic 5.7 - 6.4 % Diabetic >or= 6.5 % Please note range changes. Performed By: #### L 501.9985 ####[facility] [address] [place], [place], [address] Hemoglobin A1c percentageOrd ered By: Clinton Soares on 09-18-2024 HbA1c (Bld) [Mass fraction] 9.9 % High <5.7 [facility] Hemoglobin measurementOrdere d By: Saúl Aguilar on 09-18-2024 Hemoglobin (Bld) [Mass/Vol] 14.8 g/dL 13.0-16.5 [facility] Immature granulocytes/100 WB C Auto (Bld)Ordered By: Saúl Aguilar on 09-18-2024 Immature granulocytes/100 WBC (Bld) 0.300 % 0.0-0.9 [facility] L499.0042on 09-18-2024 Trop T High Sen 62 ng/L Invalid Interpretation Code <=22 [facility] Comment on above: Result Comment: Crit ical Result(s) Called at: 09/18/2024-01:23 by: Nesha Rodriguez.??Results read back by same. Performed By: #### L 499.0042 ####[facility] [address] [place], [place], [address] L499.0043on 09-18-2024 Trop T High Sen 64 ng/L Invalid Interpretation Code <=22 [facility] Comment on above: Result Comment: Crit ical Result(s) Called at: 09/18/2024:33 by: Nesha to Amanda Haider.??Results read back by same. Performed By: #### L 499.0043 ####[facility] [address] [place], [address] L501.4021on 09-18-2024 Trop T High Sen 64 ng/L Invalid Interpretation Code <=22 [facility] Comment on above: Result Comment: Hemo lysis present, Results??could be affected.??Critical Result(s) Called at: 09/18/2024:33 by: Nesha to Dolly Rodriguez.??Results read back by same. Performed By: #### L 501.4021, L100.0100 ####[facility] [address] [place], [address] L503.7509on 09-18-2024 Natriuretic peptide B (Bld) [Mass/Vol] 2552 pg/mL High <=900 [facility] Comment on above: Result Comment: Hear t Failure Unlikely: < 300 pg/mLHeart Failure Likely< 50 Years: > 450 pg/mL50-75 Years: > 900 pg/mL>75 Years: > 1800 pg/mL Performed By: #### L 500.2500, L503.8015 ####[facility] [address] [place], [place], [address] MCV (mean corpuscular volume ) determinationOrdered By: Saúl Aguilar on 09-18-2024 MCV (RBC) [Entitic vol] 95.7 fL High 80-94 [facility] Mean corpuscular hemoglobin (MCH) determinationOrdered By: Saúl Aguilar on 09-18-2024 MCH (RBC) [Entitic mass] 31.9 pg 27.0-32.0 [facility] Monocyte percentageOrdered B y: Saúl Aguilar on 09-18-2024 Monocytes/100 WBC (Bld) 6.7 % 0-10 [facility] Natriuretic peptide.B prohor parris N-Terminal [Mass/volume] in Serum or PlasmaOrdered By: Saúl Aguilar on 09-18-2024 Natriuretic peptide.B prohormone N-Terminal [Mass/Vol] 2552 pg/mL High <900 [facility] Neutrophil percentageOrdered By: Saúl Aguilar on 09-18-2024 Neutrophils/100 WBC (Bld) 61.9 % 47-70 [facility] Platelet countOrdered By: Chacho Aguilar on 09-18-2024 Platelets (Bld) [#/Vol] 276 10*3/uL 150-450 [facility] Potassium measurement (mass/ volume)Ordered By: Saúl Aguilar on 09-18-2024 Potassium (Unsp spec) [Mass/Vol] 5.0 mmol/L 3.3-5.1 [facility] RBC Auto (Bld) [#/Vol]Ordere d By: Saúl Aguilar on 09-18-2024 RBC (Bld) [#/Vol] 4.64 10*6/uL 4.6-6.2 [facility] Serum creatinine measurement (mass/volume)Ordered By: Saúl Aguilar on 09-18-2024 Creatinine [Mass/Vol] 1.01 mg/dL 0.70-1.20 [facility] Serum glucose measurement (m ass/volume)Ordered By: Saúl Aguilar on 09-18-2024 Glucose [Mass/Vol] 184 mg/dL High 70-99 [facility] Serum or plasma calcium brenda urement (mass/volume)Ordered By: Saúl Aguilar on 09-18-2024 Calcium [Mass/Vol] 9.3 mg/dL 7.6-11.0 [facility] Serum or plasma urea nitroge n measurement (mass/volume)Ordered By: Saúl Aguilar on 09-18-2024 Urea nitrogen [Mass/Vol] 17 mg/dL 4-19 [facility] Sodium levelOrdered By: Saúl Aguilar on 09-18-2024 Sodium [Moles/Vol] 139 mmol/L 133-145 [facility] [facility] Trop[facility] T.cardiac [Mass/vol ume] in Serum or Plasma by High sensitivity methodOrdered By: Saúl Aguilar on 09-18-2024 Troponin T.cardiac High sensitivity method [Mass/Vol] 64 ng/L High <22 [facility] Troponin T.cardiac High sensitivity method [Mass/Vol] 62 ng/L High <22 [facility] Troponin T.cardiac High sensitivity method [Mass/Vol] 64 ng/L High <22 [facility] White blood cell (WBC) count Ordered By: Saúl Aguilar on 09-18-2024 WBC (Bld) [#/Vol] 7.6 10*3/uL 4.4-11.0 [facility] Arterial study reportOrdered By: Salú Flowers on 09-08-2024 Noninvasive arteriosclerosis study report [facility] Work Phone: [phone] Carotid Duplex Ultrasoundon 09-08-2024 Carotid Duplex Ultrasound Normal [facility] Duplex ultrasound of carotid artery reportOrdered By: Saúl Flowers on 09-08-2024 Study report [facility] Work Phone: [phone] Lower Ext Art Exam w/o Exerc zachary 09-08-2024 Lower Ext Art Exam w/o Exercis Normal [facility] Internal Medicine Office Vis iton 08-02-2024 Internal Medicine Office Visit Normal [facility] No Panel InformationOrdered By: Xiang Rogers on 08-02-2024 12.5 % High 4.2-6.3 [facility] L499.0043on 07-30-2024 Trop T High Sen Normal <=22 [facility] Comment on above: Result Comment: Canc elled via OM: Order cancelled - Patient discharged Performed By: #### L 499.0043 ####[facility] [address] [place], [address] Absolute lymphocyte countOrd ered By: ED PROVIDER on 07-29-2024 Lymphocytes Auto (Unsp spec) [#/Vol] 2.79 10*3/uL 0.83-4.51 [facility] Anion gap in Serum or Plasma Ordered By: Lawson Castellon on 07-29-2024 Anion gap [Moles/Vol] 16 mmol/L High 5-15 [facility] Automated lymphocyte count a s percentage of total leukocytesOrdered By: ED PROVIDER on 07-29-2024 Lymphocytes/100 WBC Auto (Unsp spec) 37.4 % 19-41 [facility] BUN/creatinine ratioOrdered By: Lawson Castellon on 07-29-2024 Urea nitrogen/Creatinine [Mass ratio] 20.7 mg/mg High 01-23 [facility] Basic Metabolic Profile (BMP )on 07-29-2024 BUN/CRE 20.7 RATIO High 01-23 [facility] Comment on above: Performed By: #### L 501.4021, L500.2500, L100.0100 ####[facility] [address] [place], [address] Calcium [Mass/Vol] 9.3 mg/dL Normal 7.6-11.0 [facility] Comment on above: Performed By: #### L 501.4021, L500.2500, L100.0100 ####[facility] [address] [place], [address] Chloride [Moles/Vol] 99 mmol/L Normal 98-108 [facility] Comment on above: Performed By: #### L 501.4021, L500.2500, L100.0100 ####[facility] [address] [place], [address] CO2 [Moles/Vol] 19.8 mmol/L Low 21.0-32.0 [facility] Comment on above: Performed By: #### L 501.4021, L500.2500, L100.0100 ####[facility] [address] [place], [address] Creatinine [Mass/Vol] 1.11 mg/dL Normal 0.70-1.20 [facility] Comment on above: Performed By: #### L 501.4021, L500.2500, L100.0100 ####[facility] [address] [place], [address] ECRCL 71.61 ml/min Normal 50-250 [facility] Comment on above: Performed By: #### L 501.4021, L500.2500, L100.0100 ####[facility] [address] [place], [address] GAP 16 High 5-15 [facility] Comment on above: Performed By: #### L 501.4021, L500.2500, L100.0100 ####[facility] [address] [place], [address] GFR/1.73 sq M.predicted among non-blacks MDRD (S/P/Bld) [Vol rate/Area] 74 mL/min/{1.73_m2} Normal >60 [facility] Comment on above: Result Comment: mL/m in/1.73m2 CKD-EPI Creatinine Equation (2020) Performed By: #### L 501.4021, L500.2500, L100.0100 ####[facility] [address] [place], [address] Glucose [Mass/Vol] 400 mg/dL High 70-99 [facility] Comment on above: Performed By: #### L 501.4021, L500.2500, L100.0100 ####[facility] [address] [place], [address] Potassium [Moles/Vol] 4.0 mmol/L Normal 3.3-5.1 [facility] Comment on above: Result Comment: Hemo lysis present, Results??could be affected.?? Performed By: #### L 501.4021, L500.2500, L100.0100 ####[facility] [address] [place], [address] Sodium [Moles/Vol] 134 mmol/L Normal 133-145 [facility] Comment on above: Performed By: #### L 501.4021, L500.2500, L100.0100 ####[facility] [address] [place], [address] Urea nitrogen [Mass/Vol] 23 mg/dL High 4-19 [facility] Comment on above: Performed By: #### L 501.4021, L500.2500, L100.0100 ####[facility] [address] [place], [address] Basophil percentageOrdered B y: ED PROVIDER on 07-29-2024 Basophils/100 WBC (Bld) 0.3 % 0-1 [facility] CBC W/Diff, Automatedon 07-06 Absolute Lymph 2.79 X10 3/uL Normal 0.83-4.51 [facility] Comment on above: Performed By: #### L 501.4021, L500.2500, L100.0100 ####[facility] [address] [place], [address] Absolute Neut 4.0 X10 3/uL Normal 2.0-7.7 [facility] Comment on above: Performed By: #### L 501.4021, L500.2500, L100.0100 ####[facility] [address] [place], [address] Basophils/100 WBC (Bld) 0.3 % Normal 0-1 [facility] Comment on above: Performed By: #### L 501.4021, L500.2500, L100.0100 ####[facility] [address] [place], [address] Eosinophils/100 WBC (Bld) 2.5 % Normal 0-5 [facility] Comment on above: Performed By: #### L 501.4021, L500.2500, L100.0100 ####[facility] [address] [place], [address] Erythrocyte distribution width (RBC) [Ratio] 12.7 % Normal 11.6-14.6 [facility] Comment on above: Performed By: #### L 501.4021, L500.2500, L100.0100 ####[facility] [address] [place], [address] Hematocrit (Bld) [Volume fraction] 44.1 % Normal 40-54 [facility] Comment on above: Performed By: #### L 501.4021, L500.2500, L100.0100 ####[facility] [address] [place], [address] Hemoglobin (Bld) [Mass/Vol] 15.6 g/dL Normal 13.0-16.5 [facility] Comment on above: Performed By: #### L 501.4021, L500.2500, L100.0100 ####[facility] [address] [place], [address] IG% 0.100 Normal 0.0-0.9 [facility] Comment on above: Result Comment: IG% - Immature Granulocytes (promyelocytes, myelocytes andmetamyelocytes) > 1% indicates that a LEFT SHIFT is Present. Performed By: #### L 501.4021, L500.2500, L100.0100 ####[facility] [address] [place], [address] Lymphocytes/100 WBC (Bld) 37.4 % Normal 19-41 [facility] Comment on above: Performed By: #### L 501.4021, L500.2500, L100.0100 ####[facility] [address] [place], [address] MCH (RBC) [Entitic mass] 32.2 pg High 27.0-32.0 [facility] Comment on above: Performed By: #### L 501.4021, L500.2500, L100.0100 ####[facility] [address] [place], [address] MCHC (RBC) [Mass/Vol] 35.4 g/dL Normal 32-36 [facility] Comment on above: Performed By: #### L 501.4021, L500.2500, L100.0100 ####[facility] [address] [place], [address] MCV (RBC) [Entitic vol] 90.9 fL Normal 80-94 [facility] Comment on above: Performed By: #### L 501.4021, L500.2500, L100.0100 ####[facility] [address] [place], [address] Monocytes/100 WBC (Bld) 6.6 % Normal 0-10 [facility] Comment on above: Performed By: #### L 501.4021, L500.2500, L100.0100 ####[facility] [address] [place], [address] Neutrophils/100 WBC (Bld) 53.1 % Normal 47-70 [facility] Comment on above: Performed By: #### L 501.4021, L500.2500, L100.0100 ####[facility] [address] [place], [address] Nucleated RBC (Bld) [#/Vol] 0 10*3/uL Normal 0-5 [facility] Comment on above: Performed By: #### L 501.4021, L500.2500, L100.0100 ####[facility] [address] [place], [address] Platelet mean volume (Bld) [Entitic vol] 10.3 fL Normal 6.2-12.0 [facility] Comment on above: Performed By: #### L 501.4021, L500.2500, L100.0100 ####[facility] [address] [place], [address] Platelets (Bld) [#/Vol] 275 10*3/uL Normal 150-450 [facility] Comment on above: Performed By: #### L 501.4021, L500.2500, L100.0100 ####[facility] [address] [place], [address] RBC (Bld) [#/Vol] 4.85 10*6/uL Normal 4.6-6.2 [facility] Comment on above: Performed By: #### L 501.4021, L500.2500, L100.0100 ####[facility] [address] [place], [address] RDW SD 41.7 fl Normal 35.1-43.9 [facility] Comment on above: Performed By: #### L 501.4021, L500.2500, L100.0100 ####[facility] [address] [place], [address] WBC (Bld) [#/Vol] 7.5 10*3/uL Normal 4.4-11.0 [facility] Comment on above: Performed By: #### L 501.4021, L500.2500, L100.0100 ####[facility] [address] [place], [address] Carbon dioxide, total [Moles /volume] in Central venous bloodOrdered By: Lawson Castellon on 07-29-2024 CO2 [Moles/Vol] 19.8 mmol/L Low 21.0-32.0 [facility] Chest 1 View (Portable)on Chest 1 View (Portable) Normal [facility] Chloride assayOrdered By: Isael Castellon on 07-29-2024 Chloride [Moles/Vol] 99 mmol/L 98-108 [facility] Emergency Department Summary on 07-29-2024 Emergency Department Summary Normal [facility] Eosinophil percentageOrdered By: ED PROVIDER on 07-29-2024 Eosinophils/100 WBC (Bld) 2.5 % 0-5 [facility] Erythrocyte distribution wid th ratioOrdered By: ED PROVIDER on 07-29-2024 Erythrocyte distribution width (RBC) [Ratio] 12.7 % 11.6-14.6 [facility] Erythrocyte distribution wid th standard deviationOrdered By: ED PROVIDER on 07-29-2024 Erythrocyte distribution width (RBC) [Ratio] 41.7 fl 35.1-43.9 [facility] Glomerular filtration rate ( GFR) estimation/1.73 sq m using serum, plasma, or whole bOrdered By: Lawson Castellon on 07-29-2024 GFR/1.73 sq M.predicted among non-blacks MDRD (S/P/Bld) [Vol rate/Area] 74 mL/min/{1.73_m2} >60 [facility] Hematocrit Auto (Bld) [Volum e fraction]Ordered By: ED PROVIDER on 07-29-2024 Hematocrit (Bld) [Volume fraction] 44.1 % 40-54 [facility] Hemoglobin measurementOrdere d By: ED PROVIDER on 07-29-2024 Hemoglobin (Bld) [Mass/Vol] 15.6 g/dL 13.0-16.5 [facility] Immature granulocytes/100 WB C Auto (Bld)Ordered By: ED PROVIDER on 07-29-2024 Immature granulocytes/100 WBC (Bld) 0.100 % 0.0-0.9 [facility] L499.0042on 07-29-2024 Trop T High Sen 27 ng/L High <=22 [facility] Comment on above: Performed By: #### L 499.0042 ####[facility] [address] [place], [address] L501.4021on 07-29-2024 Trop T High Sen 22 ng/L Normal <=22 [facility] Comment on above: Performed By: #### L 501.4021, L500.2500, L100.0100 ####[facility] [address] [place], [address] MCV (mean corpuscular volume ) determinationOrdered By: ED PROVIDER on 07-29-2024 MCV (RBC) [Entitic vol] 90.9 fL 80-94 [facility] Mean corpuscular hemoglobin (MCH) determinationOrdered By: ED PROVIDER on 07-29-2024 MCH (RBC) [Entitic mass] 32.2 pg High 27.0-32.0 [facility] Monocyte percentageOrdered B y: ED PROVIDER on 07-29-2024 Monocytes/100 WBC (Bld) 6.6 % 0-10 [facility] Neutrophil percentageOrdered By: ED PROVIDER on 07-29-2024 Neutrophils/100 WBC (Bld) 53.1 % 47-70 [facility] Platelet countOrdered By: ED PROVIDER on 07-29-2024 Platelets (Bld) [#/Vol] 275 10*3/uL 150-450 [facility] Potassium measurement (mass/ volume)Ordered By: Lawson Castellon on 07-29-2024 Potassium (Unsp spec) [Mass/Vol] 4.0 mmol/L 3.3-5.1 [facility] RBC Auto (Bld) [#/Vol]Ordere d By: ED PROVIDER on 07-29-2024 RBC (Bld) [#/Vol] 4.85 10*6/uL 4.6-6.2 [facility] Serum creatinine measurement (mass/volume)Ordered By: Lawson Castellon on 07-29-2024 Creatinine [Mass/Vol] 1.11 mg/dL 0.70-1.20 [facility] Serum glucose measurement (m ass/volume)Ordered By: Lawson Castellon on 07-29-2024 Glucose [Mass/Vol] 400 mg/dL High 70-99 [facility] Serum or plasma calcium brenda urement (mass/volume)Ordered By: Lawson Castellon on 07-29-2024 Calcium [Mass/Vol] 9.3 mg/dL 7.6-11.0 [facility] Serum or plasma urea nitroge n measurement (mass/volume)Ordered By: Lawson Castellon on 07-29-2024 Urea nitrogen [Mass/Vol] 23 mg/dL High 4-19 [facility] Sodium levelOrdered By: Lawson Castellon on 07-29-2024 Sodium [Moles/Vol] 134 mmol/L 133-145 [facility] Troponin T.cardiac [Mass/vol ume] in Serum or Plasma by High sensitivity methodOrdered By: Lawson Castellon on 07-29-2024 Troponin T.cardiac High sensitivity method [Mass/Vol] 27 ng/L High <22 [facility] Troponin T.cardiac High sensitivity method [Mass/Vol] 22 ng/L <22 [facility] White blood cell (WBC) count Ordered By: ED PROVIDER on 07-29-2024 WBC (Bld) [#/Vol] 7.5 10*3/uL 4.4-11.0 [facility] MR/BMS.BVSon 07-14-2024 MR/BMS.BVS Normal [facility] Cardiology Visit Reporton Cardiology Visit Report Normal [facility] Basic Metabolic Profile (BMP )on 06-26-2024 BUN Normal 4-19 [facility] Comment on above: Result Comment: Canc elled via OM: Order cancelled - Patient discharged Performed By: #### L 500.2500, L100.0500 ####[facility] [address] [place], [address] BUN/CRE Normal 10-20 [facility] Comment on above: Result Comment: Canc elled via OM: Order cancelled - Patient discharged Performed By: #### L 500.2500, L100.0500 ####[facility] [address] [place], [address] Calcium Normal 7.6-11.0 [facility] Comment on above: Result Comment: Canc elled via OM: Order cancelled - Patient discharged Performed By: #### L 500.2500, L100.0500 ####[facility] [address] [place], [address] CL Normal 98-108 [facility] Comment on above: Result Comment: Canc elled via OM: Order cancelled - Patient discharged Performed By: #### L 500.2500, L100.0500 ####[facility] [address] [place], [address] CO2 Normal 21.0-32.0 [facility] Comment on above: Result Comment: Canc elled via OM: Order cancelled - Patient discharged Performed By: #### L 500.2500, L100.0500 ####[facility] [address] [place], [address] CREAT,SERUM Normal 0.70-1.20 [facility] Comment on above: Result Comment: Canc elled via OM: Order cancelled - Patient discharged Performed By: #### L 500.2500, L100.0500 ####[facility] [address] [place], [address] eGFR Normal >60 [facility] Comment on above: Result Comment: Canc elled via OM: Order cancelled - Patient discharged Performed By: #### L 500.2500, L100.0500 ####[facility] [address] [place], [address] GAP Normal 5-15 [facility] Comment on above: Result Comment: Canc elled via OM: Order cancelled - Patient discharged Performed By: #### L 500.2500, L100.0500 ####[facility] [address] [place], [address] GLU Normal 70-99 [facility] Comment on above: Result Comment: Canc elled via OM: Order cancelled - Patient discharged Performed By: #### L 500.2500, L100.0500 ####[facility] [address] [place], [address] Potassium Normal 3.3-5.1 [facility] Comment on above: Result Comment: Canc elled via OM: Order cancelled - Patient discharged Performed By: #### L 500.2500, L100.0500 ####[facility] [address] [place], [address] Basic Metabolic Profile (BMP) Normal 133-145 [facility] Comment on above: Result Comment: Canc elled via OM: Order cancelled - Patient discharged Performed By: #### L 500.2500, L100.0500 ####[facility] [address] [place], [address] CBC-Complete Blood Cnt No Di ffon 06-26-2024 HCT Normal 40-54 [facility] Comment on above: Result Comment: Canc elled via OM: Order cancelled - Patient discharged Performed By: #### L 500.2500, L100.0500 ####[facility] [address] [place], [address] HGB Normal 13.0-16.5 [facility] Comment on above: Result Comment: Canc elled via OM: Order cancelled - Patient discharged Performed By: #### L 500.2500, L100.0500 ####[facility] [address] [place], [address] MCH Normal 27.0-32.0 [facility] Comment on above: Result Comment: Canc elled via OM: Order cancelled - Patient discharged Performed By: #### L 500.2500, L100.0500 ####[facility] [address] [place], [address] MCHC Normal 32-36 [facility] Comment on above: Result Comment: Canc elled via OM: Order cancelled - Patient discharged Performed By: #### L 500.2500, L100.0500 ####[facility] [address] [place], [address] MCV Normal 80-94 [facility] Comment on above: Result Comment: Canc elled via OM: Order cancelled - Patient discharged Performed By: #### L 500.2500, L100.0500 ####[facility] [address] [place], [address] PLT Normal 150-450 [facility] Comment on above: Result Comment: Canc elled via OM: Order cancelled - Patient discharged Performed By: #### L 500.2500, L100.0500 ####[facility] [address] [place], [address] RBC Normal 4.6-6.2 [facility] Comment on above: Result Comment: Canc elled via OM: Order cancelled - Patient discharged Performed By: #### L 500.2500, L100.0500 ####[facility] [address] [place], [address] RDW CV Normal 11.6-14.6 [facility] Comment on above: Result Comment: Canc elled via OM: Order cancelled - Patient discharged Performed By: #### L 500.2500, L100.0500 ####[facility] [address] [place], [address] RDW SD Normal 35.1-43.9 [facility] Comment on above: Result Comment: Canc elled via OM: Order cancelled - Patient discharged Performed By: #### L 500.2500, L100.0500 ####[facility] [address] [place], [address] WBC Normal 4.4-11.0 [facility] Comment on above: Result Comment: Canc elled via OM: Order cancelled - Patient discharged Performed By: #### L 500.2500, L100.0500 ####[facility] [address] [place], [address] Basic Metabolic Profile (BMP )on 06-25-2024 BUN Normal 4-19 [facility] Comment on above: Result Comment: Canc elled via OM: Order cancelled - Patient discharged Performed By: #### L 500.2500, L100.0500 ####[facility] [address] [place], [address] BUN/CRE Normal 10-20 [facility] Comment on above: Result Comment: Canc elled via OM: Order cancelled - Patient discharged Performed By: #### L 500.2500, L100.0500 ####[facility] [address] [place], [address] Calcium Normal 7.6-11.0 [facility] Comment on above: Result Comment: Canc elled via OM: Order cancelled - Patient discharged Performed By: #### L 500.2500, L100.0500 ####[facility] [address] [place], [address] CL Normal 98-108 [facility] Comment on above: Result Comment: Canc elled via OM: Order cancelled - Patient discharged Performed By: #### L 500.2500, L100.0500 ####[facility] [address] [place], [address] CO2 Normal 21.0-32.0 [facility] Comment on above: Result Comment: Canc elled via OM: Order cancelled - Patient discharged Performed By: #### L 500.2500, L100.0500 ####[facility] [address] [place], [address] CREAT,SERUM Normal 0.70-1.20 [facility] Comment on above: Result Comment: Canc elled via OM: Order cancelled - Patient discharged Performed By: #### L 500.2500, L100.0500 ####[facility] [address] [place], [address] eGFR Normal >60 [facility] Comment on above: Result Comment: Canc elled via OM: Order cancelled - Patient discharged Performed By: #### L 500.2500, L100.0500 ####[facility] [address] [place], [address] GAP Normal 5-15 [facility] Comment on above: Result Comment: Canc elled via OM: Order cancelled - Patient discharged Performed By: #### L 500.2500, L100.0500 ####[facility] [address] [place], [address] GLU Normal 70-99 [facility] Comment on above: Result Comment: Canc elled via OM: Order cancelled - Patient discharged Performed By: #### L 500.2500, L100.0500 ####[facility] [address] [place], [address] Potassium Normal 3.3-5.1 [facility] Comment on above: Result Comment: Canc elled via OM: Order cancelled - Patient discharged Performed By: #### L 500.2500, L100.0500 ####[facility] [address] [place], [address] Basic Metabolic Profile (BMP) Normal 133-145 [facility] Comment on above: Result Comment: Canc elled via OM: Order cancelled - Patient discharged Performed By: #### L 500.2500, L100.0500 ####[facility] [address] [place], [address] CBC-Complete Blood Cnt No Di ffon 06-25-2024 HCT Normal 40-54 [facility] Comment on above: Result Comment: Canc elled via OM: Order cancelled - Patient discharged Performed By: #### L 500.2500, L100.0500 ####[facility] [address] [place], [address] HGB Normal 13.0-16.5 [facility] Comment on above: Result Comment: Canc elled via OM: Order cancelled - Patient discharged Performed By: #### L 500.2500, L100.0500 ####[facility] [address] [place], [address] MCH Normal 27.0-32.0 [facility] Comment on above: Result Comment: Canc elled via OM: Order cancelled - Patient discharged Performed By: #### L 500.2500, L100.0500 ####[facility] [address] [place], [address] MCHC Normal 32-36 [facility] Comment on above: Result Comment: Canc elled via OM: Order cancelled - Patient discharged Performed By: #### L 500.2500, L100.0500 ####[facility] [address] [place], [address] MCV Normal 80-94 [facility] Comment on above: Result Comment: Canc elled via OM: Order cancelled - Patient discharged Performed By: #### L 500.2500, L100.0500 ####[facility] [address] [place], [address] PLT Normal 150-450 [facility] Comment on above: Result Comment: Canc elled via OM: Order cancelled - Patient discharged Performed By: #### L 500.2500, L100.0500 ####[facility] [address] [place], [address] RBC Normal 4.6-6.2 [facility] Comment on above: Result Comment: Canc elled via OM: Order cancelled - Patient discharged Performed By: #### L 500.2500, L100.0500 ####[facility] [address] [place], [address] RDW CV Normal 11.6-14.6 [facility] Comment on above: Result Comment: Canc elled via OM: Order cancelled - Patient discharged Performed By: #### L 500.2500, L100.0500 ####[facility] [address] [place], [address] RDW SD Normal 35.1-43.9 [facility] Comment on above: Result Comment: Canc elled via OM: Order cancelled - Patient discharged Performed By: #### L 500.2500, L100.0500 ####[facility] [address] [place], [address] WBC Normal 4.4-11.0 [facility] Comment on above: Result Comment: Canc elled via OM: Order cancelled - Patient discharged Performed By: #### L 500.2500, L100.0500 ####[facility] [address] [place], [address] Basic Metabolic Profile (BMP )on 06-24-2024 BUN Normal 4-19 [facility] Comment on above: Result Comment: Canc elled via OM: Order cancelled - Patient discharged Performed By: #### L 500.2500, L100.0500 ####[facility] [address] [place], [address] BUN/CRE Normal 10-20 [facility] Comment on above: Result Comment: Canc elled via OM: Order cancelled - Patient discharged Performed By: #### L 500.2500, L100.0500 ####[facility] [address] [place], [address] Calcium Normal 7.6-11.0 [facility] Comment on above: Result Comment: Canc elled via OM: Order cancelled - Patient discharged Performed By: #### L 500.2500, L100.0500 ####[facility] [address] [place], [address] CL Normal 98-108 [facility] Comment on above: Result Comment: Canc elled via OM: Order cancelled - Patient discharged Performed By: #### L 500.2500, L100.0500 ####[facility] [address] [place], [address] CO2 Normal 21.0-32.0 [facility] Comment on above: Result Comment: Canc elled via OM: Order cancelled - Patient discharged Performed By: #### L 500.2500, L100.0500 ####[facility] [address] [place], [address] CREAT,SERUM Normal 0.70-1.20 [facility] Comment on above: Result Comment: Canc elled via OM: Order cancelled - Patient discharged Performed By: #### L 500.2500, L100.0500 ####[facility] [address] [place], [address] eGFR Normal >60 [facility] Comment on above: Result Comment: Canc elled via OM: Order cancelled - Patient discharged Performed By: #### L 500.2500, L100.0500 ####[facility] [address] [place], [address] GAP Normal 5-15 [facility] Comment on above: Result Comment: Canc elled via OM: Order cancelled - Patient discharged Performed By: #### L 500.2500, L100.0500 ####[facility] [address] [place], [address] GLU Normal 70-99 [facility] Comment on above: Result Comment: Canc elled via OM: Order cancelled - Patient discharged Performed By: #### L 500.2500, L100.0500 ####[facility] [address] [place], [address] Potassium Normal 3.3-5.1 [facility] Comment on above: Result Comment: Canc elled via OM: Order cancelled - Patient discharged Performed By: #### L 500.2500, L100.0500 ####[facility] [address] [place], [address] Basic Metabolic Profile (BMP) Normal 133-145 [facility] Comment on above: Result Comment: Canc elled via OM: Order cancelled - Patient discharged Performed By: #### L 500.2500, L100.0500 ####[facility] [address] [place], [address] CBC-Complete Blood Cnt No Di ffon 06-24-2024 HCT Normal 40-54 [facility] Comment on above: Result Comment: Canc elled via OM: Order cancelled - Patient discharged Performed By: #### L 500.2500, L100.0500 ####[facility] [address] [place], [address] HGB Normal 13.0-16.5 [facility] Comment on above: Result Comment: Canc elled via OM: Order cancelled - Patient discharged Performed By: #### L 500.2500, L100.0500 ####[facility] [address] [place], [address] MCH Normal 27.0-32.0 [facility] Comment on above: Result Comment: Canc elled via OM: Order cancelled - Patient discharged Performed By: #### L 500.2500, L100.0500 ####[facility] [address] [place], [address] MCHC Normal 32-36 [facility] Comment on above: Result Comment: Canc elled via OM: Order cancelled - Patient discharged Performed By: #### L 500.2500, L100.0500 ####[facility] [address] [place], [address] MCV Normal 80-94 [facility] Comment on above: Result Comment: Canc elled via OM: Order cancelled - Patient discharged Performed By: #### L 500.2500, L100.0500 ####[facility] [address] [place], [address] PLT Normal 150-450 [facility] Comment on above: Result Comment: Canc elled via OM: Order cancelled - Patient discharged Performed By: #### L 500.2500, L100.0500 ####[facility] [address] [place], [address] RBC Normal 4.6-6.2 [facility] Comment on above: Result Comment: Canc elled via OM: Order cancelled - Patient discharged Performed By: #### L 500.2500, L100.0500 ####[facility] [address] [place], [address] RDW CV Normal 11.6-14.6 [facility] Comment on above: Result Comment: Canc elled via OM: Order cancelled - Patient discharged Performed By: #### L 500.2500, L100.0500 ####[facility] [address] [place] [facility] [place], [address] RDW SD Normal 35.1-43.9 [facility] Comment on above: Result Comment: Canc elled via OM: Order cancelled - Patient discharged Performed By: #### L 500.2500, L100.0500 ####[facility] [address] [place], [address] WBC Normal 4.4-11.0 [facility] Comment on above: Result Comment: Canc elled via OM: Order cancelled - Patient discharged Performed By: #### L 500.2500, L100.0500 ####[facility] [address] [place], [address] Basic Metabolic Profile (BMP )on 06-23-2024 BUN Normal 4-19 [facility] Comment on above: Result Comment: Canc elled via OM: Order cancelled - Patient discharged Performed By: #### L 100.0500, L500.2500 ####[facility] [address] [place], [address] BUN/CRE Normal 10-20 [facility] Comment on above: Result Comment: Canc elled via OM: Order cancelled - Patient discharged Performed By: #### L 100.0500, L500.2500 ####[facility] [address] [place], [address] Calcium Normal 7.6-11.0 [facility] Comment on above: Result Comment: Canc elled via OM: Order cancelled - Patient discharged Performed By: #### L 100.0500, L500.2500 ####[facility] [address] [place], [address] CL Normal 98-108 [facility] Comment on above: Result Comment: Canc elled via OM: Order cancelled - Patient discharged Performed By: #### L 100.0500, L500.2500 ####[facility] [address] [place], [address] CO2 Normal 21.0-32.0 [facility] Comment on above: Result Comment: Canc elled via OM: Order cancelled - Patient discharged Performed By: #### L 100.0500, L500.2500 ####[facility] [address] [place], [address] CREAT,SERUM Normal 0.70-1.20 [facility] Comment on above: Result Comment: Canc elled via OM: Order cancelled - Patient discharged Performed By: #### L 100.0500, L500.2500 ####[facility] [address] [place], [address] eGFR Normal >60 [facility] Comment on above: Result Comment: Canc elled via OM: Order cancelled - Patient discharged Performed By: #### L 100.0500, L500.2500 ####[facility] [address] [place], [address] GAP Normal 5-15 [facility] Comment on above: Result Comment: Canc elled via OM: Order cancelled - Patient discharged Performed By: #### L 100.0500, L500.2500 ####[facility] [address] [place], [address] GLU Normal 70-99 [facility] Comment on above: Result Comment: Canc elled via OM: Order cancelled - Patient discharged Performed By: #### L 100.0500, L500.2500 ####[facility] [address] [place], [address] Potassium Normal 3.3-5.1 [facility] Comment on above: Result Comment: Canc elled via OM: Order cancelled - Patient discharged Performed By: #### L 100.0500, L500.2500 ####[facility] [address] [place], [address] Basic Metabolic Profile (BMP) Normal 133-145 [facility] Comment on above: Result Comment: Canc elled via OM: Order cancelled - Patient discharged Performed By: #### L 100.0500, L500.2500 ####[facility] [address] [place], [address] CBC-Complete Blood Cnt No Di ffon 06-23-2024 HCT Normal 40-54 [facility] Comment on above: Result Comment: Canc elled via OM: Order cancelled - Patient discharged Performed By: #### L 100.0500, L500.2500 ####[facility] [address] [place], [address] HGB Normal 13.0-16.5 [facility] Comment on above: Result Comment: Canc elled via OM: Order cancelled - Patient discharged Performed By: #### L 100.0500, L500.2500 ####[facility] [address] [place], [address] MCH Normal 27.0-32.0 [facility] Comment on above: Result Comment: Canc elled via OM: Order cancelled - Patient discharged Performed By: #### L 100.0500, L500.2500 ####[facility] [address] [place], [address] MCHC Normal 32-36 [facility] Comment on above: Result Comment: Canc elled via OM: Order cancelled - Patient discharged Performed By: #### L 100.0500, L500.2500 ####[facility] [address] [place], [address] MCV Normal 80-94 [facility] Comment on above: Result Comment: Canc elled via OM: Order cancelled - Patient discharged Performed By: #### L 100.0500, L500.2500 ####[facility] [address] [place], [address] PLT Normal 150-450 [facility] Comment on above: Result Comment: Canc elled via OM: Order cancelled - Patient discharged Performed By: #### L 100.0500, L500.2500 ####[facility] [address] [place], [address] RBC Normal 4.6-6.2 [facility] Comment on above: Result Comment: Canc elled via OM: Order cancelled - Patient discharged Performed By: #### L 100.0500, L500.2500 ####[facility] [address] [place], [address] RDW CV Normal 11.6-14.6 [facility] Comment on above: Result Comment: Canc elled via OM: Order cancelled - Patient discharged Performed By: #### L 100.0500, L500.2500 ####[facility] [address] [place], [address] RDW SD Normal 35.1-43.9 [facility] Comment on above: Result Comment: Canc elled via OM: Order cancelled - Patient discharged Performed By: #### L 100.0500, L500.2500 ####[facility] [address] [place], [address] WBC Normal 4.4-11.0 [facility] Comment on above: Result Comment: Canc elled via OM: Order cancelled - Patient discharged Performed By: #### L 100.0500, L500.2500 ####[facility] [address] [place], [address] Basic Metabolic Profile (BMP )on 06-22-2024 BUN Normal -19 [facility] Comment on above: Result Comment: Canc elled via OM: Order cancelled - Patient discharged Performed By: #### L 100.0500, L500.2500 ####[facility] [address] [place], [address] BUN/CRE Normal 10-20 [facility] Comment on above: Result Comment: Canc elled via OM: Order cancelled - Patient discharged Performed By: #### L 100.0500, L500.2500 ####[facility] [address] [place], [address] Calcium Normal 7.6-11.0 [facility] Comment on above: Result Comment: Canc elled via OM: Order cancelled - Patient discharged Performed By: #### L 100.0500, L500.2500 ####[facility] [address] [place], [address] CL Normal 98-108 [facility] Comment on above: Result Comment: Canc elled via OM: Order cancelled - Patient discharged Performed By: #### L 100.0500, L500.2500 ####[facility] [address] [place], [address] CO2 Normal 21.0-32.0 [facility] Comment on above: Result Comment: Canc elled via OM: Order cancelled - Patient discharged Performed By: #### L 100.0500, L500.2500 ####[facility] [address] [place], [address] CREAT,SERUM Normal 0.70-1.20 [facility] Comment on above: Result Comment: Canc elled via OM: Order cancelled - Patient discharged Performed By: #### L 100.0500, L500.2500 ####[facility] [address] [place], [address] eGFR Normal >60 [facility] Comment on above: Result Comment: Canc elled via OM: Order cancelled - Patient discharged Performed By: #### L 100.0500, L500.2500 ####[facility] [address] [place], [address] GAP Normal 5-15 [facility] Comment on above: Result Comment: Canc elled via OM: Order cancelled - Patient discharged Performed By: #### L 100.0500, L500.2500 ####[facility] [address] [place], [address] GLU Normal 70-99 [facility] Comment on above: Result Comment: Canc elled via OM: Order cancelled - Patient discharged Performed By: #### L 100.0500, L500.2500 ####[facility] [address] [place], [address] Potassium Normal 3.3-5.1 [facility] Comment on above: Result Comment: Canc elled via OM: Order cancelled - Patient discharged Performed By: #### L 100.0500, L500.2500 ####[facility] [address] [place], [address] Basic Metabolic Profile (BMP) Normal 133-145 [facility] Comment on above: Result Comment: Canc elled via OM: Order cancelled - Patient discharged Performed By: #### L 100.0500, L500.2500 ####[facility] [address] [place], [address] CBC-Complete Blood Cnt No Di ffon 06-22-2024 HCT Normal 40-54 [facility] Comment on above: Result Comment: Canc elled via OM: Order cancelled - Patient discharged Performed By: #### L 100.0500, L500.2500 ####[facility] [address] [place], [address] HGB Normal 13.0-16.5 [facility] Comment on above: Result Comment: Canc elled via OM: Order cancelled - Patient discharged Performed By: #### L 100.0500, L500.2500 ####[facility] [address] [place], [address] MCH Normal 27.0-32.0 [facility] Comment on above: Result Comment: Canc elled via OM: Order cancelled - Patient discharged Performed By: #### L 100.0500, L500.2500 ####[facility] [address] [place], [address] MCHC Normal 32-36 [facility] Comment on above: Result Comment: Canc elled via OM: Order cancelled - Patient discharged Performed By: #### L 100.0500, L500.2500 ####[facility] [address] [place], [address] MCV Normal 80-94 [facility] Comment on above: Result Comment: Canc elled via OM: Order cancelled - Patient discharged Performed By: #### L 100.0500, L500.2500 ####[facility] [address] [place], [address] PLT Normal 150-450 [facility] Comment on above: Result Comment: Canc elled via OM: Order cancelled - Patient discharged Performed By: #### L 100.0500, L500.2500 ####[facility] [address] [place], [address] RBC Normal 4.6-6.2 [facility] Comment on above: Result Comment: Canc elled via OM: Order cancelled - Patient discharged Performed By: #### L 100.0500, L500.2500 ####[facility] [address] [place], [address] RDW CV Normal 11.6-14.6 [facility] Comment on above: Result Comment: Canc elled via OM: Order cancelled - Patient discharged Performed By: #### L 100.0500, L500.2500 ####[facility] [address] [place], [address] RDW SD Normal 35.1-43.9 [facility] Comment on above: Result Comment: Canc elled via OM: Order cancelled - Patient discharged Performed By: #### L 100.0500, L500.2500 ####[facility] [address] [place], [address] WBC Normal 4.4-11.0 [facility] Comment on above: Result Comment: Canc elled via OM: Order cancelled - Patient discharged Performed By: #### L 100.0500, L500.2500 ####[facility] [address] [place], [address] Basic Metabolic Profile (BMP )on 06-21-2024 BUN Normal 4-19 [facility] Comment on above: Result Comment: Canc elled via OM: Order cancelled - Patient discharged Performed By: #### L 500.2500, L100.0500 ####[facility] [address] [place], [address] BUN/CRE Normal 10-20 [facility] Comment on above: Result Comment: Canc elled via OM: Order cancelled - Patient discharged Performed By: #### L 500.2500, L100.0500 ####[facility] [address] [place], [address] Calcium Normal 7.6-11.0 [facility] Comment on above: Result Comment: Canc elled via OM: Order cancelled - Patient discharged Performed By: #### L 500.2500, L100.0500 ####[facility] [address] [place], [address] CL Normal 98-108 [facility] Comment on above: Result Comment: Canc elled via OM: Order cancelled - Patient discharged Performed By: #### L 500.2500, L100.0500 ####[facility] [address] [place], [address] CO2 Normal 21.0-32.0 [facility] Comment on above: Result Comment: Canc elled via OM: Order cancelled - Patient discharged Performed By: #### L 500.2500, L100.0500 ####[facility] [address] [place], [address] CREAT,SERUM Normal 0.70-1.20 [facility] Comment on above: Result Comment: Canc elled via OM: Order cancelled - Patient discharged Performed By: #### L 500.2500, L100.0500 ####[facility] [address] [place], [address] eGFR Normal >60 [facility] Comment on above: Result Comment: Canc elled via OM: Order cancelled - Patient discharged Performed By: #### L 500.2500, L100.0500 ####[facility] [address] [place], [address] GAP Normal 5-15 [facility] Comment on above: Result Comment: Canc elled via OM: Order cancelled - Patient discharged Performed By: #### L 500.2500, L100.0500 ####[facility] [address] [place], [address] GLU Normal 70-99 [facility] Comment on above: Result Comment: Canc elled via OM: Order cancelled - Patient discharged Performed By: #### L 500.2500, L100.0500 ####[facility] [address] [place], [address] Potassium Normal 3.3-5.1 [facility] Comment on above: Result Comment: Canc elled via OM: Order cancelled - Patient discharged Performed By: #### L 500.2500, L100.0500 ####[facility] [address] [place], [address] Basic Metabolic Profile (BMP) Normal 133-145 [facility] Comment on above: Result Comment: Canc elled via OM: Order cancelled - Patient discharged Performed By: #### L 500.2500, L100.0500 ####[facility] [address] [place], [address] CBC-Complete Blood Cnt No Di ffon 06-21-2024 HCT Normal 40-54 [facility] Comment on above: Result Comment: Canc elled via OM: Order cancelled - Patient discharged Performed By: #### L 500.2500, L100.0500 ####[facility] [address] [place], [address] HGB Normal 13.0-16.5 [facility] Comment on above: Result Comment: Canc elled via OM: Order cancelled - Patient discharged Performed By: #### L 500.2500, L100.0500 ####[facility] [address] [place], [address] MCH Normal 27.0-32.0 [facility] Comment on above: Result Comment: Canc elled via OM: Order cancelled - Patient discharged Performed By: #### L 500.2500, L100.0500 ####[facility] [address] [place], [address] MCHC Normal 32-36 [facility] Comment on above: Result Comment: Canc elled via OM: Order cancelled - Patient discharged Performed By: #### L 500.2500, L100.0500 ####[facility] [address] [place], [address] MCV Normal 80-94 [facility] Comment on above: Result Comment: Canc elled via OM: Order cancelled - Patient discharged Performed By: #### L 500.2500, L100.0500 ####[facility] [address] [place], [address] PLT Normal 150-450 [facility] Comment on above: Result Comment: Canc elled via OM: Order cancelled - Patient discharged Performed By: #### L 500.2500, L100.0500 ####[facility] [address] [place], [address] RBC Normal 4.6-6.2 [facility] Comment on above: Result Comment: Canc elled via OM: Order cancelled - Patient discharged Performed By: #### L 500.2500, L100.0500 ####[facility] [address] [place], [address] RDW CV Normal 11.6-14.6 [facility] Comment on above: Result Comment: Canc elled via OM: Order cancelled - Patient discharged Performed By: #### L 500.2500, L100.0500 ####[facility] [address] [place], [address] RDW SD Normal 35.1-43.9 [facility] Comment on above: Result Comment: Canc elled via OM: Order cancelled - Patient discharged Performed By: #### L 500.2500, L100.0500 ####[facility] [address] [place], [address] WBC Normal 4.4-11.0 [facility] Comment on above: Result Comment: Canc elled via OM: Order cancelled - Patient discharged Performed By: #### L 500.2500, L100.0500 ####[facility] [address] [place], [address] Anion gap in Serum or Plasma Ordered By: Donna Wolff on 06-20-2024 Anion gap [Moles/Vol] 14 mmol/L 5-15 [facility] BUN/creatinine ratioOrdered By: Donna Wolff on 06-20-2024 Urea nitrogen/Creatinine [Mass ratio] 27.2 mg/mg High 10-20 [facility] Basic Metabolic Profile (BMP )on 06-20-2024 BUN/CRE 27.2 RATIO High -20 [facility] Comment on above: Performed By: #### L 500.2500, L100.0500 ####[facility] [address] [place], [address] Calcium [Mass/Vol] 9.5 mg/dL Normal 7.6-11.0 [facility] Comment on above: Performed By: #### L 500.2500, L100.0500 ####[facility] [address] [place], [address] Chloride [Moles/Vol] 100 mmol/L Normal 98-108 [facility] Comment on above: Performed By: #### L 500.2500, L100.0500 ####[facility] [address] [place], [address] CO2 [Moles/Vol] 24.8 mmol/L Normal 21.0-32.0 [facility] Comment on above: Performed By: #### L 500.2500, L100.0500 ####[facility] [address] [place], [address] Creatinine [Mass/Vol] 1.07 mg/dL Normal 0.70-1.20 [facility] Comment on above: Performed By: #### L 500.2500, L100.0500 ####[facility] [address] [place], [address] ECRCL 74.28 ml/min Normal 50-250 [facility] Comment on above: Performed By: #### L 500.2500, L100.0500 ####[facility] [address] [place], [address] GAP 14 Normal 5-15 [facility] Comment on above: Performed By: #### L 500.2500, L100.0500 ####[facility] [address] [place], [address] GFR/1.73 sq M.predicted among non-blacks MDRD (S/P/Bld) [Vol rate/Area] 77 mL/min/{1.73_m2} Normal >60 [facility] Comment on above: Result Comment: mL/m in/1.73m2 CKD-EPI Creatinine Equation (2020) Performed By: #### L 500.2500, L100.0500 ####[facility] [address] [place], [address] Glucose [Mass/Vol] 110 mg/dL High 70-99 [facility] Comment on above: Performed By: #### L 500.2500, L100.0500 ####[facility] [address] [place], [address] Potassium [Moles/Vol] 3.8 mmol/L Normal 3.3-5.1 [facility] Comment on above: Performed By: #### L 500.2500, L100.0500 ####[facility] [address] [place], [address] Sodium [Moles/Vol] 138 mmol/L Normal 133-145 [facility] Comment on above: Performed By: #### L 500.2500, L100.0500 ####[facility] [address] [place], [address] Urea nitrogen [Mass/Vol] 29 mg/dL High 4-19 [facility] Comment on above: Performed By: #### L 500.2500, L100.0500 ####[facility] [address] [place], [address] Bedside Glucoseon 06-20-2024 F[place] GLU 127 mg/dL High 74-106 [facility] Comment on above: Result Comment: SNEHA DUNCAN OF PATIENT CARE PER NURSING PROTOCOL Performed By: #### L 501.080 ####[facility] [address] [place], [address] CBC-Complete Blood Cnt No Di ffon 06-20-2024 Erythrocyte distribution width (RBC) [Ratio] 13.0 % Normal 11.6-14.6 [facility] Comment on above: Performed By: #### L 500.2500, L100.0500 ####[facility] [address] [place], [address] Hematocrit (Bld) [Volume fraction] 50.5 % Normal 40-54 [facility] Comment on above: Performed By: #### L 500.2500, L100.0500 ####[facility] [address] [place], [address] Hemoglobin (Bld) [Mass/Vol] 16.8 g/dL High 13.0-16.5 [facility] Comment on above: Performed By: #### L 500.2500, L100.0500 ####[facility] [address] [place], [address] MCH (RBC) [Entitic mass] 30.8 pg Normal 27.0-32.0 [facility] Comment on above: Performed By: #### L 500.2500, L100.0500 ####[facility] [address] [place], [address] MCHC (RBC) [Mass/Vol] 33.3 g/dL Normal 32-36 [facility] Comment on above: Performed By: #### L 500.2500, L100.0500 ####[facility] [address] [place], [address] MCV (RBC) [Entitic vol] 92.5 fL Normal 80-94 [facility] Comment on above: Performed By: #### L 500.2500, L100.0500 ####[facility] [address] [place], [address] Platelet mean volume (Bld) [Entitic vol] 10.1 fL Normal 6.2-12.0 [facility] Comment on above: Performed By: #### L 500.2500, L100.0500 ####[facility] [address] [place], [address] Platelets (Bld) [#/Vol] 295 10*3/uL Normal 150-450 [facility] Comment on above: Performed By: #### L 500.2500, L100.0500 ####[facility] [address] [place], [address] RBC (Bld) [#/Vol] 5.46 10*6/uL Normal 4.6-6.2 [facility] Comment on above: Performed By: #### L 500.2500, L100.0500 ####[facility] [address] [place], [address] RDW SD 43.8 fl Normal 35.1-43.9 [facility] Comment on above: Performed By: #### L 500.2500, L100.0500 ####[facility] [address] [place], [address] WBC (Bld) [#/Vol] 14.2 10*3/uL High 4.4-11.0 [facility] Comment on above: Performed By: #### L 500.2500, L100.0500 ####[facility] [address] [place], [address] Carbon dioxide, total [Moles /volume] in Central venous bloodOrdered By: Donna Wolff on 06-20-2024 CO2 [Moles/Vol] 24.8 mmol/L 21.0-32.0 [facility] Chloride assayOrdered By: Nilson Wolff on 06-20-2024 Chloride [Moles/Vol] 100 mmol/L 98-108 [facility] Discharge Instructionon 06-04 Discharge Instruction Normal [facility] Erythrocyte distribution wid th ratioOrdered By: Donna Wolff on 06-20-2024 Erythrocyte distribution width (RBC) [Ratio] 13.0 % 11.6-14.6 [facility] Erythrocyte distribution wid th standard deviationOrdered By: Donna Wolff on 06-20-2024 Erythrocyte distribution width (RBC) [Ratio] 43.8 fl 35.1-43.9 [facility] Glomerular filtration rate ( GFR) estimation/1.73 sq m using serum, plasma, or whole bOrdered By: Donna Wolff on 06-20-2024 GFR/1.73 sq M.predicted among non-blacks MDRD (S/P/Bld) [Vol rate/Area] 77 mL/min/{1.73_m2} >60 [facility] deOrdered By: Donna Wolff on 06-20-2024 Glucose [Mass/Vol] 127 mg/dL High 74-106 [facility] Hematocrit Auto (Bld) [Volum e fraction]Ordered By: Donna Wolff on 06-20-2024 Hematocrit (Bld) [Volume fraction] 50.5 % 40-54 [facility] Hemoglobin measurementOrdere d By: Donna Wolff on 06-20-2024 Hemoglobin (Bld) [Mass/Vol] 16.8 g/dL High 13.0-16.5 [facility] MCV (mean corpuscular volume ) determinationOrdered By: Donna Wolff on 06-20-2024 MCV (RBC) [Entitic vol] 92.5 fL 80-94 [facility] Mean corpuscular hemoglobin (MCH) determinationOrdered By: Donna Wolff on 06-20-2024 MCH (RBC) [Entitic mass] 30.8 pg 27.0-32.0 [facility] Platelet countOrdered By: Nilson Wolff on 06-20-2024 Platelets (Bld) [#/Vol] 295 10*3/uL 150-450 [facility] Potassium measurement (mass/ volume)Ordered By: Donna Wolff on 06-20-2024 Potassium (Unsp spec) [Mass/Vol] 3.8 mmol/L 3.3-5.1 [facility] RBC Auto (Bld) [#/Vol]Ordere d By: Donna Wolff on 06-20-2024 RBC (Bld) [#/Vol] 5.46 10*6/uL 4.6-6.2 [facility] Serum creatinine measurement (mass/volume)Ordered By: Donna Wolff on 06-20-2024 Creatinine [Mass/Vol] 1.07 mg/dL 0.70-1.20 [facility] Serum glucose measurement (m ass/volume)Ordered By: Donna Wolff on 06-20-2024 Glucose [Mass/Vol] 110 mg/dL High 70-99 [facility] Serum or plasma calcium brenda urement (mass/volume)Ordered By: Donna Wolff on 06-20-2024 Calcium [Mass/Vol] 9.5 mg/dL 7.6-11.0 [facility] Serum or plasma urea nitroge n measurement (mass/volume)Ordered By: Donna Wolff on 06-20-2024 Urea nitrogen [Mass/Vol] 29 mg/dL High 4-19 [facility] Sodium levelOrdered By: Gretta Wolff on 06-20-2024 Sodium [Moles/Vol] 138 mmol/L 133-145 [facility] Stress Reporton 06-20-2024 Stress Report Normal [facility] White blood cell (WBC) count Ordered By: Donna Wolff on 06-20-2024 WBC (Bld) [#/Vol] 14.2 10*3/uL High 4.4-11.0 [facility] Absolute lymphocyte countOrd ered By: Steve Donald on 06-19-2024 Lymphocytes Auto (Unsp spec) [#/Vol] 1.12 10*3/uL 0.83-4.51 [facility] Automated lymphocyte count a s percentage of total leukocytesOrdered By: Steve Donald on 06-19-2024 Lymphocytes/100 WBC Auto (Unsp spec) 9.8 % Low 19-41 [facility] Basophil percentageOrdered B y: Steve Donald on 06-19-2024 Basophils/100 WBC (Bld) 0.1 % 0-1 [facility] Bedside Glucoseon 06-19-2024 FINGERSTICK GLU 220 mg/dL High 74-106 [facility] Comment on above: Result Comment: SNEHA GEMENT OF PATIENT CARE PER NURSING PROTOCOL Performed By: #### L 501.080 ####[facility] [address] [facility] [address] FINGERSTICK GLU 431 mg/dL High 74-106 [facility] Comment on above: Result Comment: SNEHA GEMENT OF PATIENT CARE PER NURSING PROTOCOL Performed By: #### L 501.080 ####[facility] [address] [place], [address] FINGERSTICK GLU 387 mg/dL High 74-106 [facility] Comment on above: Result Comment: SNEHA GEMENT OF PATIENT CARE PER NURSING PROTOCOL Performed By: #### L 501.080 ####[facility] [address] [place], [address] FINGERSTICK GLU 292 mg/dL High 74-106 [facility] Comment on above: Result Comment: SNEHA DUNCAN OF PATIENT CARE PER NURSING PROTOCOL Performed By: #### L 501.080 ####[facility] [address] [place], [address] Bilirubin, totalOrdered By: Steve Donald on 06-19-2024 Bilirubin [Mass/Vol] 0.63 mg/dL 0.00-1.30 [facility] CBC W/Diff, Automatedon 06-04 Absolute Lymph 1.12 X10 3/uL Normal 0.83-4.51 [facility] Comment on above: Performed By: #### L 500.4050, L501.2300, L501.9985, L100.0100 ####[facility] [address] [place], [address] Absolute Neut 9.8 X10 3/uL High 2.0-7.7 [facility] Comment on above: Performed By: #### L 500.4050, L501.2300, L501.9985, L100.0100 ####[facility] [address] [place], [address] Basophils/100 WBC (Bld) 0.1 % Normal 0-1 [facility] Comment on above: Performed By: #### L 500.4050, L501.2300, L501.9985, L100.0100 ####[facility] [address] [place], [address] Eosinophils/100 WBC (Bld) 0.0 % Normal 0-5 [facility] Comment on above: Performed By: #### L 500.4050, L501.2300, L501.9985, L100.0100 ####[facility] [address] [place], [address] Erythrocyte distribution width (RBC) [Ratio] 12.8 % Normal 11.6-14.6 [facility] Comment on above: Performed By: #### L 500.4050, L501.2300, L501.9985, L100.0100 ####[facility] [address] [place], [address] Hematocrit (Bld) [Volume fraction] 49.9 % Normal 40-54 [facility] Comment on above: Performed By: #### L 500.4050, L501.2300, L501.9985, L100.0100 ####[facility] [address] [place], [address] Hemoglobin (Bld) [Mass/Vol] 16.8 g/dL High 13.0-16.5 [facility] Comment on above: Performed By: #### L 500.4050, L501.2300, L501.9985, L100.0100 ####[facility] [address] [place], [address] IG% 0.700 Normal 0.0-0.9 [facility] Comment on above: Result Comment: IG% - Immature Granulocytes (promyelocytes, myelocytes andmetamyelocytes) > 1% indicates that a LEFT SHIFT is Present. Performed By: #### L 500.4050, L501.2300, L501.9985, L100.0100 ####[facility] [address] [place], [address] Lymphocytes/100 WBC (Bld) 9.8 % Low 19-41 [facility] Comment on above: Performed By: #### L 500.4050, L501.2300, L501.9985, L100.0100 ####[facility] [address] [place], [address] MCH (RBC) [Entitic mass] 31.3 pg Normal 27.0-32.0 [facility] Comment on above: Performed By: #### L 500.4050, L501.2300, L501.9985, L100.0100 ####[facility] [address] [place], [address] MCHC (RBC) [Mass/Vol] 33.7 g/dL Normal 32-36 [facility] Comment on above: Performed By: #### L 500.4050, L501.2300, L501.9985, L100.0100 ####[facility] [address] [place], [address] MCV (RBC) [Entitic vol] 92.9 fL Normal 80-94 [facility] Comment on above: Performed By: #### L 500.4050, L501.2300, L501.9985, L100.0100 ####[facility] [address] [place], [address] Monocytes/100 WBC (Bld) 3.2 % Normal 0-10 [facility] Comment on above: Performed By: #### L 500.4050, L501.2300, L501.9985, L100.0100 ####[facility] [address] [place], [address] Neutrophils/100 WBC (Bld) 86.2 % High 47-70 [facility] Comment on above: Performed By: #### L 500.4050, L501.2300, L501.9985, L100.0100 ####[facility] [address] [place], [address] Nucleated RBC (Bld) [#/Vol] 0 10*3/uL Normal 0-5 [facility] Comment on above: Performed By: #### L 500.4050, L501.2300, L501.9985, L100.0100 ####[facility] [address] [place], [address] Platelet mean volume (Bld) [Entitic vol] 10.4 fL Normal 6.2-12.0 [facility] Comment on above: Performed By: #### L 500.4050, L501.2300, L501.9985, L100.0100 ####[facility] [address] [place], [address] Platelets (Bld) [#/Vol] 290 10*3/uL Normal 150-450 [facility] Comment on above: Performed By: #### L 500.4050, L501.2300, L501.9985, L100.0100 ####[facility] [address] [place], [address] RBC (Bld) [#/Vol] 5.37 10*6/uL Normal 4.6-6.2 [facility] Comment on above: Performed By: #### L 500.4050, L501.2300, L501.9985, L100.0100 ####[facility] [address] [place], [address] RDW SD 43.8 fl Normal 35.1-43.9 [facility] Comment on above: Performed By: #### L 500.4050, L501.2300, L501.9985, L100.0100 ####[facility] [address] [place], [address] WBC (Bld) [#/Vol] 11.4 10*3/uL High 4.4-11.0 [facility] Comment on above: Performed By: #### L 500.4050, L501.2300, L501.9985, L100.0100 ####[facility] [address] [place], [address] Chest 1 View (Portable)on Chest 1 View (Portable) Normal [facility] Comprehensive Metabolic Prof ilon 06-19-2024 GAP 17 High 5-15 [facility] Comment on above: Performed By: #### L 500.4050, L501.2300, L501.9985, L100.0100 ####[facility] [address] [place], [address] Albumin [Mass/Vol] 4.1 g/dL Normal 3.4-4.8 [facility] Comment on above: Performed By: #### L 500.4050, L501.2300, L501.9985, L100.0100 ####[facility] [address] [place], [address] Albumin/Globulin [Mass ratio] 1.2 {ratio} Normal 0.9-2.4 [facility] Comment on above: Performed By: #### L 500.4050, L501.2300, L501.9985, L100.0100 ####[facility] [address] [place], [address] ALK PHOS 89 U/L Normal 40-129 [facility] Comment on above: Performed By: #### L 500.4050, L501.2300, L501.9985, L100.0100 ####[facility] [address] [place], [address] ALT [Catalytic activity/Vol] 38 U/L Normal <=46 [facility] Comment on above: Performed By: #### L 500.4050, L501.2300, L501.9985, L100.0100 ####[facility] [address] [place], [address] AST [Catalytic activity/Vol] 26 U/L Normal <=37 [facility] Comment on above: Performed By: #### L 500.4050, L501.2300, L501.9985, L100.0100 ####[facility] [address] [place], [address] Bilirubin [Mass/Vol] 0.63 mg/dL Normal 0.00-1.30 [facility] Comment on above: Performed By: #### L 500.4050, L501.2300, L501.9985, L100.0100 ####[facility] [address] [place], [address] BUN/CRE 24.5 RATIO High 10-20 [facility] Comment on above: Performed By: #### L 500.4050, L501.2300, L501.9985, L100.0100 ####[facility] [address] [place], [address] Calcium [Mass/Vol] 9.6 mg/dL Normal 7.6-11.0 [facility] Comment on above: Performed By: #### L 500.4050, L501.2300, L501.9985, L100.0100 ####[facility] [address] [place], [address] Chloride [Moles/Vol] 97 mmol/L Low 98-108 [facility] Comment on above: Performed By: #### L 500.4050, L501.2300, L501.9985, L100.0100 ####[facility] [address] [place], [address] CO2 [Moles/Vol] 19.8 mmol/L Low 21.0-32.0 [facility] Comment on above: Performed By: #### L 500.4050, L501.2300, L501.9985, L100.0100 ####[facility] [address] [place], [address] Creatinine [Mass/Vol] 1.12 mg/dL Normal 0.70-1.20 [facility] Comment on above: Performed By: #### L 500.4050, L501.2300, L501.9985, L100.0100 ####[facility] [address] [place], [address] ECRCL 70.97 ml/min Normal 50-250 [facility] Comment on above: Performed By: #### L 500.4050, L501.2300, L501.9985, L100.0100 ####[facility] [address] [place], [address] GFR/1.73 sq M.predicted among non-blacks MDRD (S/P/Bld) [Vol rate/Area] 73 mL/min/{1.73_m2} Normal >60 [facility] Comment on above: Result Comment: mL/m in/1.73m2 CKD-EPI Creatinine Equation (2020) Performed By: #### L 500.4050, L501.2300, L501.9985, L100.0100 ####[facility] [address] [place], [address] Globulin (S) [Mass/Vol] 3.5 g/dL Normal 2.2-4.2 [facility] Comment on above: Performed By: #### L 500.4050, L501.2300, L501.9985, L100.0100 ####[facility] [address] [place], [address] Glucose [Mass/Vol] 324 mg/dL High 70-99 [facility] Comment on above: Performed By: #### L 500.4050, L501.2300, L501.9985, L100.0100 ####[facility] [address] [place], [address] Potassium [Moles/Vol] 4.3 mmol/L Normal 3.3-5.1 [facility] Comment on above: Performed By: #### L 500.4050, L501.2300, L501.9985, L100.0100 ####[facility] [address] [place], [address] Sodium [Moles/Vol] 134 mmol/L Normal 133-145 [facility] Comment on above: Performed By: #### L 500.4050, L501.2300, L501.9985, L100.0100 ####[facility] [address] [place], [address] T PROT 7.6 g/dL Normal 5.9-8.4 [facility] Comment on above: Performed By: #### L 500.4050, L501.2300, L501.9985, L100.0100 ####[facility] [address] [place], [address] Urea nitrogen [Mass/Vol] 27 mg/dL High 4-19 [facility] Comment on above: Performed By: #### L 500.4050, L501.2300, L501.9985, L100.0100 ####[facility] [address] [place], [address] Eosinophil percentageOrdered By: Steve Donald on 06-19-2024 Eosinophils/100 WBC (Bld) 0.0 % 0-5 [facility] Hemoglobin A1con 06-19-2024 HbA1c (Bld) [Mass fraction] 12.4 % Normal <=5.6 [facility] Comment on above: Performed By: #### L 500.4050, L501.2300, L501.9985, L100.0100 ####[facility] [address] [place], [address] Hemoglobin A1c percentageOrd ered By: Steve Donald on 06-19-2024 HbA1c (Bld) [Mass fraction] 12.4 % >5.7 [facility] Immature granulocytes/100 WB C Auto (Bld)Ordered By: Steve Donald on 06-19-2024 Immature granulocytes/100 WBC (Bld) 0.700 % 0.0-0.9 [facility] Monocyte percentageOrdered B y: Steve Donald on 06-19-2024 Monocytes/100 WBC (Bld) 3.2 % 0-10 [facility] Neutrophil percentageOrdered By: Steve Donald on 06-19-2024 Neutrophils/100 WBC (Bld) 86.2 % High 47-70 [facility] No Panel InformationOrdered By: Steve Donald on 06-19-2024 26 U/L <38 [facility] Phosphoruson 06-19-2024 Phosphate [Mass/Vol] 4.4 mg/dL Normal 2.7-4.5 [facility] Comment on above: Performed By: #### L 500.4050, L501.2300, L501.9985, L100.0100 ####[facility] [address] [place], [place], [address] Serum globulin measurementOr dered By: Steve Donald on 06-19-2024 Globulin (S) [Mass/Vol] 3.5 g/dL 2.2-4.2 [facility] Serum or plasma alanine martino otransferase (ALT) measurementOrdered By: Steve Donald on 06-19-2024 ALT [Catalytic activity/Vol] 38 U/L <47 [facility] Serum or plasma albumin brenda urement (mass/volume)Ordered By: Steve Donald on 06-19-2024 Albumin [Mass/Vol] 4.1 g/dL 3.4-4.8 [facility] Serum or plasma albumin/glob ulin mass ratioOrdered By: Steve Donald on 06-19-2024 Albumin/Globulin [Mass ratio] 1.2 {ratio} 0.9-2.4 [facility] Serum or plasma alkaline yulia sphatase measurementOrdered By: Steve Donald on 06-19-2024 ALP [Catalytic activity/Vol] 89 U/L 40-129 [facility] Total proteinOrdered By: Sidney Donald on 06-19-2024 Protein [Mass/Vol] 7.6 g/dL 5.9-8.4 [facility] Assessment of wrist artery p atency prior to arterial punctureOrdered By: Steve Donald on 06-18-2024 Arterial patency Wrist artery --pre arterial puncture Positive [facility] Bedside Glucoseon 06-18-2024 FINGERSTICK GLU 434 mg/dL High 74-106 [facility] Comment on above: Result Comment: SNEHA GEMENT OF PATIENT CARE PER NURSING PROTOCOL Performed By: #### L 501.080 ####[facility] [address] [place], [address] FINGERSTICK GLU 429 mg/dL High 74-106 [facility] Comment on above: Result Comment: Dr Manjit solis FollowedMANAGEMENT OF PATIENT CARE PER NURSING PROTOCOL Performed By: #### L 501.080 ####[facility] [address] [place], [address] FINGERSTICK GLU 321 mg/dL High -106 [facility] Comment on above: Result Comment: SNEHA GEMENT OF PATIENT CARE PER NURSING PROTOCOL Performed By: #### L 501.080 ####[facility] [address] [place], [address] FINGERSTICK GLU 282 mg/dL High [facility]106 [facility] Comment on above: Result Comment: SNEHA GEMENT OF PATIENT CARE PER NURSING PROTOCOL Performed By: #### L 501.080 ####[facility] [address] [place], [address] Bilirubin Test strip Ql (U)O rdered By: Steve Donald on 06-18-2024 Bilirubin Ql (U) Negative Negative [facility] MOY TEST Positive Normal [facility] Comment on above: Performed By: #### L 9000.0800 ####[facility] [address] [place], [address] Base excess Calc (Bld) [Moles/Vol] 2 mmol/L Normal -2 to +2 [facility] Comment on above: Performed By: #### L 9000.0800 ####[facility] [address] [place], [address] Blood Gas Type ART Normal [facility] Comment on above: Performed By: #### L 9000.0800 ####[facility] [address] [place], [address] CO2 [Moles/Vol] 28 mmol/L Normal [facility] Comment on above: Performed By: #### L 9000.0800 ####[facility] [address] [place], [address] Comment 17/11 12 30% Normal [facility] Comment on above: Performed By: #### L 9000.0800 ####[facility] [address] [place], [address] FI02 30.0 Normal [facility] Comment on above: Performed By: #### L 9000.0800 ####[facility] [address] [place], [address] HCO3 (Bld) [Moles/Vol] 26.7 mmol/L High 22-26 [facility] Comment on above: Performed By: #### L 9000.0800 ####[facility] [address] [place], [address] Mode Not entered Normal [facility] Comment on above: Performed By: #### L 9000.0800 ####[facility] [address] [place], [address] O2 Delivery Dev BiPAP Normal [facility] Comment on above: Performed By: #### L 9000.0800 ####[facility] [address] [place], [address] pCO2 41.5 mmHg Normal 35-45 [facility] Comment on above: Performed By: #### L 9000.0800 ####[facility] [address] [place], [address] pH (Bld) 7.42 [pH] Normal 7.35-7.45 [facility] Comment on above: Performed By: #### L 9000.0800 ####[facility] [address] [place], [address] PO2 73 mmHG Low 75-100 [facility] Comment on above: Performed By: #### L 9000.0800 ####[facility] [address] [place], [address] SITE R Radial Normal [facility] Comment on above: Performed By: #### L 9000.0800 ####[facility] [address] [place], [address] SO2 95 Normal 95-99 [facility] Comment on above: Performed By: #### L 9000.0800 ####[facility] [address] [place], [address] Blood base excess determinat ionOrdered By: Steve Donald on 06-18-2024 Base excess Calc (BldV) [Moles/Vol] 2 mmol/L -2-2 [facility] Blood bicarbonate measuremen tOrdered By: Steve Donald on 06-18-2024 HCO3 (Bld) [Moles/Vol] 26.7 mmol/L High 22-26 [facility] CTA Chest W/WO Contraston CTA Chest W/WO Contrast Normal [facility] Consultation - Cardiologyon 06-18-2024 Consultation - Cardiology Normal [facility] Echo Complete W/ Contraston 06-18-2024 Echo Complete W/ Contrast Normal [facility] Emergency Department Summary on 06-18-2024 Emergency Department Summary Normal [facility] H AND P Exam - Hospitaliston 06-18-2024 H&P Exam - Hospitalist Normal [facility] Influenza virus A and B and SARS-CoV-2 (COVID-19) and Respiratory syncytial virus RNAOrdered By: Jevon Osorio on 06-18-2024 SARS-CoV-2 (COVID-19) RNA HYADER+probe Ql (Unsp spec) [facility] Ketones Test strip Ql (U)Ord ered By: Steve Donald on 06-18-2024 Ketones Ql (U) Negative Negative [facility] L499.0042on 06-18-2024 Trop T High Sen 84 ng/L Invalid Interpretation Code <=22 [facility] Comment on above: Result Comment: Crit ical Result(s) Called at: 0219 by:??NBURNS TO EFINKResults read back by same. Performed By: #### L 499.0042 ####[facility] [address] [place], [address] L499.0043on 06-18-2024 Trop T High Sen 88 ng/L Invalid Interpretation Code <=22 [facility] Comment on above: Result Comment: Crit ical Result(s) Called at 0334: by: NARAYAN TOEAFFOLTER??Results read back by same. Performed By: #### L 499.0043 ####[facility] [address] [facility] [address] L503.7505on 06-18-2024 Natriuretic peptide B (Bld) [Mass/Vol] 2490 pg/mL High <=900 [facility] Comment on above: Result Comment: Hear t Failure Unlikely: < 300 pg/mLHeart Failure Likely< 50 Years: > 450 pg/mL50-75 Years: > 900 pg/mL>75 Years: > 1800 pg/mL Performed By: #### L 503.7505 ####[facility] [address] [place], [address] M100.678on 06-18-2024 M100.678 SARS-CoV-2 (COVID 19 ) Negative INFLUENZA A Negative INFLUENZA B Negative RSV PCR Negative Normal [facility] Comment on above: Performed By: #### M 100.678 ####[facility] [address] [place], [address] Magnesiumon 06-18-2024 Magnesium [Mass/Vol] 2.0 mg/dL Normal 1.5-2.2 [facility] Comment on above: Performed By: #### L 501.9520, L501.5200 ####[facility] [address] [place], [place], [id number] Magnesium measurement (mass/ volume)Ordered By: Steve Donald on 06-18-2024 Magnesium (Unsp spec) [Mass/Vol] 2.0 mg/dL 1.5-2.2 [facility] Measurement, pHOrdered By: Jovana Donald on 06-18-2024 pH (Unsp spec) 7.42 [pH] 7.35-7.45 [facility] Mucus LM Ql (Urine sed)Order ed By: Steve Donald on 06-18-2024 Mucus Ql (Urine sed) 0 SEEN /hpf [facility] Nitrite Test strip Ql (U)Ord ered By: Steve Donald on 06-18-2024 Nitrite Ql (U) Negative Negative [facility] No Panel InformationOrdered By: Steve Donald on 06-18-2024 ART [facility] R Radial [facility] Not entered [facility] BiPAP [facility] 17/11 12 30% [facility] Protein Test strip Ql (U)Ord ered By: Steve Donald on 06-18-2024 Protein Ql (U) Negative Negative [facility] RESPIRATORY PANEL MOLECULARo n 06-18-2024 RP PANEL Normal [facility] Comment on above: Performed By: #### M 100.638 ####[facility] [address] [place], [place], [address] Respiratory pathogens detect ion panel by molecular detection methodOrdered By: Steve Donald on 06-18-2024 Respiratory pathogens DNA and RNA panel HAYDER+probe (Resp) [facility] Squamous epithelial cells de tection in urine sediment by light microscopyOrdered By: Steve Donald on 06-18-2024 Epithelial cells.squamous LM Ql (Urine sed) 0-5 SEEN /hpf 0-5 [facility] TSH DL <= 0.005 mIU/L QnOrde red By: Steve Donald on 06-18-2024 TSH Qn 0.897 uIU/mL 0.300-4.200 [facility] Thyroid Stim Hormone (TSH)on 06-18-2024 TSH 0.897 uIU/mL Normal 0.300-4.200 [facility] Comment on above: Performed By: #### L 501.9520, L501.5200 ####[facility] [address] [place], [address] Total carbon dioxide measure mentOrdered By: Steve Donald on 06-18-2024 CO2 [Moles/Vol] 28 mmol/L [facility] Troponin T.cardiac [Mass/vol ume] in Serum or Plasma by High sensitivity methodOrdered By: Jevon Osorio on 06-18-2024 Troponin T.cardiac High sensitivity method [Mass/Vol] 88 ng/L High <22 [facility] Troponin T.cardiac High sensitivity method [Mass/Vol] 84 ng/L High <22 [facility] Urinalysis, Completeon 06-18 BACTERIA RARE Normal None Seen [facility] Comment on above: Order Comment: CLEAN CATCH Performed By: #### L 400.0001 ####[facility] [address] [place], [address] EPI,SQUAMOUS 0-5 SEEN Normal 0-5 [facility] Comment on above: Order Comment: CLEAN CATCH Performed By: #### L 400.0001 ####[facility] [address] [place], [address] RBC 0 SEEN Normal 0-5 [facility] Comment on above: Order Comment: CLEAN CATCH Performed By: #### L 400.0001 ####[facility] [address] [place], [address] WBC 0-5 SEEN Normal 0-5 [facility] Comment on above: Order Comment: CLEAN CATCH Performed By: #### L 400.0001 ####[facility] [address] [place], [address] BILIRUBIN URINE Negative Normal Negative [facility] Comment on above: Order Comment: CLEAN CATCH Performed By: #### L 400.0001 ####[facility] [address] [place], [address] Clarity (U) Clear Normal Clear [facility] Comment on above: Order Comment: CLEAN CATCH Performed By: #### L 400.0001 ####[facility] [address] [place], [address] Color (U) Yellow Normal Yellow [facility] Comment on above: Order Comment: CLEAN CATCH Performed By: #### L 400.0001 ####[facility] [address] [place], [address] GLUCOSE, UR 1000 mg/dl Abnormal Normal [facility] Comment on above: Order Comment: CLEAN CATCH Performed By: #### L 400.0001 ####[facility] [address] [place], [address] KETONE UR Negative Normal Negative [facility] Comment on above: Order Comment: CLEAN CATCH Performed By: #### L 400.0001 ####[facility] [address] [place], [address] LEUK ESTERASE Negative Normal Negative [facility] Comment on above: Order Comment: CLEAN CATCH Performed By: #### L 400.0001 ####[facility] [address] [place], [address] Nitrite Ql (U) Negative Normal Negative [facility] Comment on above: Order Comment: CLEAN CATCH Performed By: #### L 400.0001 ####[facility] [address] [place], [address] OCCULT BLOOD-UR Negative Normal Negative [facility] Comment on above: Order Comment: CLEAN CATCH Performed By: #### L 400.0001 ####[facility] [address] [place], [address] pH UR 6.0 Normal 5.0 - 8.0 [facility] Comment on above: Order Comment: CLEAN CATCH Performed By: #### L 400.0001 ####[facility] [address] [place], [address] PROT DIPSTX Negative Normal Negative [facility] Comment on above: Order Comment: CLEAN CATCH Performed By: #### L 400.0001 ####[facility] [address] [place], [address] SP.GR. DIPSTX 1.010 Normal 1.002-1.030 [facility] Comment on above: Order Comment: CLEAN CATCH Performed By: #### L 400.0001 ####[facility] [address] [place], [address] UROBILI Normal Normal Normal [facility] Comment on above: Order Comment: CLEAN CATCH Performed By: #### L 400.0001 ####[facility] [address] [place], [address] Mucus Ql (Urine sed) 0 SEEN Normal [facility] Comment on above: Order Comment: CLEAN CATCH Performed By: #### L 400.0001 ####[facility] [address] [place], [place], [address] Urine clarityOrdered By: Sidney Donald on 06-18-2024 Clarity (U) Clear Clear [facility] Urine color determinationOrd ered By: Steve Donald on 06-18-2024 Color (U) Yellow Yellow [facility] Urine glucose detectionOrder ed By: Steve Donald on 06-18-2024 Glucose Ql (U) 1000 mg/dl High Normal [facility] Urine leukocyte esterase det ection by dipstickOrdered By: Steve Donald on 06-18-2024 Leukocyte esterase Test strip Ql (U) Negative Negative [facility] Urine pHOrdered By: Steve caraballo on 06-18-2024 pH (U) 6.0 [pH] 5.0 - 8.0 [facility] Urine sediment bacteria coun t by microscopy (number/high power field)Ordered By: Steve Donald on 06-18-2024 Bacteria LM.HPF (Urine sed) [#/Area] RARE /hpf None Seen [facility] Urine specific gravity measu rementOrdered By: Steve Donald on 06-18-2024 Specific gravity (U) [Rel density] 1.010 1.002-1.030 [facility] Urine urobilinogen measureme ntOrdered By: Setve Donald on 06-18-2024 Urobilinogen Ql (U) Normal mg/dl Normal [facility] White blood cell countOrdere d By: Steve Donald on 06-18-2024 White blood cell count 0-5 SEEN /hpf 0-5 [facility] 12 Lead EKGon 06-17-2024 12 Lead EKG Normal [facility] Basic Metabolic Profile (BMP )on 06-17-2024 BUN/CRE 18.7 RATIO Normal 10-20 [facility] Comment on above: Performed By: #### L 100.0100, L500.2500, L501.4021 ####[facility] [address] [place], [address] Calcium [Mass/Vol] 9.4 mg/dL Normal 7.6-11.0 [facility] Comment on above: Performed By: #### L 100.0100, L500.2500, L501.4021 ####[facility] [address] [place], [address] Chloride [Moles/Vol] 100 mmol/L Normal 98-108 [facility] Comment on above: Performed By: #### L 100.0100, L500.2500, L501.4021 ####[facility] [address] [place], [address] CO2 [Moles/Vol] 21.0 mmol/L Normal 21.0-32.0 [facility] Comment on above: Performed By: #### L 100.0100, L500.2500, L501.4021 ####[facility] [address] [place], [address] Creatinine [Mass/Vol] 0.94 mg/dL Normal 0.70-1.20 [facility] Comment on above: Performed By: #### L 100.0100, L500.2500, L501.4021 ####[facility] [address] [place], [address] GAP 14 Normal 5-15 [facility] Comment on above: Performed By: #### L 100.0100, L500.2500, L501.4021 ####[facility] [address] [place], [address] GFR/1.73 sq M.predicted among non-blacks MDRD (S/P/Bld) [Vol rate/Area] 91 mL/min/{1.73_m2} Normal >60 [facility] Comment on above: Result Comment: mL/m in/1.73m2 CKD-EPI Creatinine Equation (2020) Performed By: #### L 100.0100, L500.2500, L501.4021 ####[facility] [address] [place], [address] Glucose [Mass/Vol] 438 mg/dL High 70-99 [facility] Comment on above: Performed By: #### L 100.0100, L500.2500, L501.4021 ####[facility] [address] [place], [address] Potassium [Moles/Vol] 4.5 mmol/L Normal 3.3-5.1 [facility] Comment on above: Performed By: #### L 100.0100, L500.2500, L501.4021 ####[facility] [address] [place], [address] Sodium [Moles/Vol] 134 mmol/L Normal 133-145 [facility] Comment on above: Performed By: #### L 100.0100, L500.2500, L501.4021 ####[facility] [address] [place], [address] Urea nitrogen [Mass/Vol] 18 mg/dL Normal 4-19 [facility] Comment on above: Performed By: #### L 100.0100, L500.2500, L501.4021 ####[facility] [address] [place], [address] CBC W/Diff, Automatedon 03-04 09-2024 Absolute Lymph 2.17 X10 3/uL Normal 0.83-4.51 [facility] Comment on above: Performed By: #### L 100.0100, L500.2500, L501.4021 ####[facility] [address] [place], [address] Absolute Neut 2.9 X10 3/uL Normal 2.0-7.7 [facility] Comment on above: Performed By: #### L 100.0100, L500.2500, L501.4021 ####[facility] [address] [place], [address] Basophils/100 WBC (Bld) 0.3 % Normal 0-1 [facility] Comment on above: Performed By: #### L 100.0100, L500.2500, L501.4021 ####[facility] [address] [place], [address] Eosinophils/100 WBC (Bld) 2.2 % Normal 0-5 [facility] Comment on above: Performed By: #### L 100.0100, L500.2500, L501.4021 ####[facility] [address] [place], [address] Erythrocyte distribution width (RBC) [Ratio] 13.1 % Normal 11.6-14.6 [facility] Comment on above: Performed By: #### L 100.0100, L500.2500, L501.4021 ####[facility] [address] [place], [address] Hematocrit (Bld) [Volume fraction] 46.2 % Normal 40-54 [facility] Comment on above: Performed By: #### L 100.0100, L500.2500, L501.4021 ####[facility] [address] [place], [address] Hemoglobin (Bld) [Mass/Vol] 15.2 g/dL Normal 13.0-16.5 [facility] Comment on above: Performed By: #### L 100.0100, L500.2500, L501.4021 ####[facility] [address] [place], [address] IG% 0.200 Normal 0.0-0.9 [facility] Comment on above: Result Comment: IG% - Immature Granulocytes (promyelocytes, myelocytes andmetamyelocytes) > 1% indicates that a LEFT SHIFT is Present. Performed By: #### L 100.0100, L500.2500, L501.4021 ####[facility] [address] [place], [address] Lymphocytes/100 WBC (Bld) 37.2 % Normal 19-41 [facility] Comment on above: Performed By: #### L 100.0100, L500.2500, L501.4021 ####[facility] [address] [place], [address] MCH (RBC) [Entitic mass] 31.3 pg Normal 27.0-32.0 [facility] Comment on above: Performed By: #### L 100.0100, L500.2500, L501.4021 ####[facility] [address] [place], [address] MCHC (RBC) [Mass/Vol] 32.9 g/dL Normal 32-36 [facility] Comment on above: Performed By: #### L 100.0100, L500.2500, L501.4021 ####[facility] [address] [place], [address] MCV (RBC) [Entitic vol] 95.1 fL High 80-94 [facility] Comment on above: Performed By: #### L 100.0100, L500.2500, L501.4021 ####[facility] [address] [place], [address] Monocytes/100 WBC (Bld) 10.3 % High 0-10 [facility] Comment on above: Performed By: #### L 100.0100, L500.2500, L501.4021 ####[facility] [address] [place], [address] Neutrophils/100 WBC (Bld) 49.8 % Normal 47-70 [facility] Comment on above: Performed By: #### L 100.0100, L500.2500, L501.4021 ####[facility] [address] [place], [address] Nucleated RBC (Bld) [#/Vol] 0 10*3/uL Normal 0-5 [facility] Comment on above: Performed By: #### L 100.0100, L500.2500, L501.4021 ####[facility] [address] [place], [address] Platelet mean volume (Bld) [Entitic vol] 10.3 fL Normal 6.2-12.0 [facility] Comment on above: Performed By: #### L 100.0100, L500.2500, L501.4021 ####[facility] [address] [place], [address] Platelets (Bld) [#/Vol] 244 10*3/uL Normal 150-450 [facility] Comment on above: Performed By: #### L 100.0100, L500.2500, L501.4021 ####[facility] [address] [place], [address] RBC (Bld) [#/Vol] 4.86 10*6/uL Normal 4.6-6.2 [facility] Comment on above: Performed By: #### L 100.0100, L500.2500, L501.4021 ####[facility] [address] [place], [address] RDW SD 45.7 fl High 35.1-43.9 [facility] Comment on above: Performed By: #### L 100.0100, L500.2500, L501.4021 ####[facility] [address] [place], [address] WBC (Bld) [#/Vol] 5.8 10*3/uL Normal 4.4-11.0 [facility] Comment on above: Performed By: #### L 100.0100, L500.2500, L501.4021 ####[facility] [address] [place], [address] Chest 1 View (Portable)on Chest 1 View (Portable) Normal [facility] L501.4021on 06-17-2024 Trop T High Sen 76 ng/L Invalid Interpretation Code <=22 [facility] Comment on above: Result Comment: Crit ical Result(s) Called at: 2342 by: NARAYAN LAMBERT??Results read back by same. Performed By: #### L 100.0100, L500.2500, L501.4021 ####[facility] [address] [place], [address] No Panel InformationOrdered By: ED PROVIDER on 06-17-2024 76 ng/L High <22 [facility] No Panel InformationOrdered By: Jevon Osorio on 06-17-2024 2490 pg/mL High <900 [facility] Ankle Brachial Indexon 06-13 Ankle Brachial Index Normal [facility] Arterial Doppler ultrasound reportOrdered By: Saúl Flowers on 06-13-2024 Study report [facility] [address] [place] [address] US Art Duplex Unilat Lower Ext 06/13/24 1426 MR#: [id number] Acct: [id number] Name: JAYLEN MEJIA Sr. Rep #:[id number] [...] Dictated: 06/13/24 1426 Date Transcribed: 06/13/24 163 Final Inspector Paper: Signed [facility] Work Phone: Arterial study reportOrdered By: Saúl Flowers on 06-13-2024 Noninvasive arteriosclerosis study report [facility] [address] [place] [address] Ankle Brachial Index 06/13/24 1351 MR#: [id number] Acct: [id number] Name: JAYLEN MEJIA Hannah Schmitt. Rep #:[id number] : 1960 64 From: Saúl Whaley Attending Dr: NILSON Heck Stat us: REG CLI Ordering Dr: Lubna Manley Date: Location: [facility] Sex: M C Admitted: Reason For Study [...] Dictated: 06/13/24 1351 Date Transcribed: 06/13/24 1630 Final Inspector Paper: Signed [facility] Work Phone: US Art Duplex Unilat Lower E xton 06-13-2024 US Art Duplex Unilat Lower Ext Normal [facility] Chest 1 View (Portable)on Chest 1 View (Portable) Normal [facility] Emergency Department Summary on 05-21-2024 Emergency Department Summary Normal [facility] Influenza virus A and B and SARS-CoV-2 (COVID-19) and Respiratory syncytial virus RNAOrdered By: Saúl Aguilar on 05-21-2024 SARS-CoV-2 (COVID-19) RNA HAYDER+probe Ql (Unsp spec) [facility] M100.678on 05-21-2024 M100.678 SARS-CoV-2 (COVID 19 ) Negative INFLUENZA A Negative INFLUENZA B Negative RSV PCR Negative Normal [facility] Comment on above: Performed By: #### M 100.678 ####[facility] [address] [place], [address] MR/Rolo 05-17-2024 MR/BMS.BVS Normal [facility] Echo Complete W/ Contraston 05-09-2024 Echo Complete W/ Contrast Normal [facility] Internal Medicine Office Vis iton 05-03-2024 Internal Medicine Office Visit Normal [facility] Laboratory - Hematology and Cell countson 05-03-2024 HbA1c (Bld) [Mass fraction] 11.4 % High 4.2-6.3 [facility] ACT Activated Clotting Timeo n 04-20-2024 ACTk CLOT TIME 222 sec High 74-137 [facility] Comment on above: Performed By: #### L 9100.0100 ####[facility] [address] [place], [address] Activated clotting timeOrder ed By: Saúl Flowers on 04-20-2024 Activated Clotting Time 222 sec High 74-137 [facility] Basic Metabolic Profile (BMP )on 04-20-2024 BUN/CRE 15.1 RATIO Normal 10-20 [facility] Comment on above: Performed By: #### L 500.2500, L100.0500 ####[facility] [address] [place], [address] CA,Total 9.3 mg/dL Normal 8.5-10.1 [facility] Comment on above: Performed By: #### L 500.2500, L100.0500 ####[facility] [address] [place], [address] Chloride [Moles/Vol] 103 mmol/L Normal 98-107 [facility] Comment on above: Performed By: #### L 500.2500, L100.0500 ####[facility] [address] [place], [address] CO2 [Moles/Vol] 26.0 mmol/L Normal 21.0-32.0 [facility] Comment on above: Performed By: #### L 500.2500, L100.0500 ####[facility] [address] [place], [address] Creatinine [Mass/Vol] 1.06 mg/dL Normal 0.70-1.30 [facility] Comment on above: Result Comment: The validity of the calculated GFR GFRAA in patients over70 years has not been determined. Clinical correlation isessential. Performed By: #### L 500.2500, L100.0500 ####[facility] [address] [place], [address] ECRCL 78.67 ml/min Normal [facility] Comment on above: Performed By: #### L 500.2500, L100.0500 ####[facility] [address] [place], [address] EST GFR - AA 90 mL/min Normal >60 [facility] Comment on above: Result Comment: Afri can [place] GFR Calc Performed By: #### L 500.2500, L100.0500 ####[facility] [address] [place], [address] GAP 6 Normal 5-15 [facility] Comment on above: Performed By: #### L 500.2500, L100.0500 ####[facility] [address] [place], [address] GFR/1.73 sq M.predicted among non-blacks MDRD (S/P/Bld) [Vol rate/Area] 75 mL/min/{1.73_m2} Normal >60 [facility] Comment on above: Result Comment: Non- GFR Calc Performed By: #### L 500.2500, L100.0500 ####[facility] [address] [place], [address] Glucose [Mass/Vol] 228 mg/dL High 74-106 [facility] Comment on above: Result Comment: Gluc ose result greater than or equal to 200 mg/dLsuggests DIABETES MELLITUS per A.D.A. criteria. Performed By: #### L 500.2500, L100.0500 ####[facility] [address] [place], [address] Potassium [Moles/Vol] 4.3 mmol/L Normal 3.5-5.1 [facility] Comment on above: Performed By: #### L 500.2500, L100.0500 ####[facility] [address] [place], [address] Sodium [Moles/Vol] 135 mmol/L Low 136-145 [facility] Comment on above: Performed By: #### L 500.2500, L100.0500 ####[facility] [address] [place], [address] Urea nitrogen [Mass/Vol] 16 mg/dL Normal 7-18 [facility] Comment on above: Performed By: #### L 500.2500, L100.0500 ####[facility] [address] [place], [address] Blood urea nitrogen (BUN)/cr eatinine ratioOrdered By: Saúl Flowers on 04-20-2024 Urea nitrogen/Creatinine [Mass ratio] 15.1 mg/mg 10-20 [facility] CBC-Complete Blood Cnt No Di ffon 04-20-2024 Erythrocyte distribution width (RBC) [Ratio] 12.9 % Normal 11.6-14.6 [facility] Comment on above: Performed By: #### L 500.2500, L100.0500 ####[facility] [address] [place], [address] Hematocrit (Bld) [Volume fraction] 52.2 % Normal 40-54 [facility] Comment on above: Performed By: #### L 500.2500, L100.0500 ####[facility] [address] [place], [address] Hemoglobin (Bld) [Mass/Vol] 17.8 g/dL High 13.0-16.5 [facility] Comment on above: Performed By: #### L 500.2500, L100.0500 ####[facility] [address] [place], [address] MCH (RBC) [Entitic mass] 31.7 pg Normal 27.0-32.0 [facility] Comment on above: Performed By: #### L 500.2500, L100.0500 ####[facility] [address] [place], [address] MCHC (RBC) [Mass/Vol] 34.1 g/dL Normal 32-36 [facility] Comment on above: Performed By: #### L 500.2500, L100.0500 ####[facility] [address] [place], [address] MCV (RBC) [Entitic vol] 92.9 fL Normal 80-94 [facility] Comment on above: Performed By: #### L 500.2500, L100.0500 ####[facility] [address] [place], [address] Platelet mean volume (Bld) [Entitic vol] 9.5 fL Normal 6.2-12.0 [facility] Comment on above: Performed By: #### L 500.2500, L100.0500 ####[facility] [address] [place], [address] Platelets (Bld) [#/Vol] 271 10*3/uL Normal 150-450 [facility] Comment on above: Performed By: #### L 500.2500, L100.0500 ####[facility] [address] [place], [address] RBC (Bld) [#/Vol] 5.62 10*6/uL Normal 4.6-6.2 [facility] Comment on above: Performed By: #### L 500.2500, L100.0500 ####[facility] [address] [place], [address] RDW SD 43.8 fl Normal 35.1-43.9 [facility] Comment on above: Performed By: #### L 500.2500, L100.0500 ####[facility] [address] [place], [address] WBC (Bld) [#/Vol] 8.5 10*3/uL Normal 4.4-11.0 [facility] Comment on above: Performed By: #### L 500.2500, L100.0500 ####[facility] [address] [place], [address] Carbon dioxide measurementOr dered By: Saúl Flowers on 04-20-2024 CO2 [Moles/Vol] 26.0 mmol/L 21.0-32.0 [facility] Chloride measurementOrdered By: Saúl Flowers on 04-20-2024 Chloride [Moles/Vol] 103 mmol/L 98-107 [facility] Erythrocyte distribution wid th ratioOrdered By: Saúl Flowers on 04-20-2024 Erythrocyte distribution width (RBC) [Ratio] 12.9 % 11.6-14.6 [facility] Erythrocyte distribution wid th standard deviationOrdered By: Saúl Flowers on 04-20-2024 Erythrocyte distribution width (RBC) [Entitic vol] 43.8 fL 35.1-43.9 [facility] Estimated glomerular filtrat ion rate (GFR) AmericanOrdered By: Saúl Flowers on 04-20-2024 Estimated GFR (MDRD) Amer 90 mL/min >60 [facility] Comment on above: GFR Calc Estimation of creatinine john aranceOrdered By: Saúl Flowers on 04-20-2024 Estimated Creatinine Clearance Calc 78.67 ml/min [facility] Glomerular filtration rate ( GFR) estimationOrdered By: Saúl Flowers on 04-20-2024 Estimated GFR (MDRD) Non-Af Amer 75 mL/min >60 [facility] Comment on above: Non- GFR Calc Glucose measurementOrdered B y: Saúl Flowers on 04-20-2024 Glucose [Mass/Vol] 228 mg/dL High 74-106 [facility] Comment on above: Glucose result great er than or equal to 200 mg/dLsuggests DIABETES MELLITUS per A.D.A. criteria. Hematocrit Auto (Bld) [Volum e fraction]Ordered By: Saúl Flowers on 04-20-2024 Hematocrit (Bld) [Volume fraction] 52.2 % 40-54 [facility] Hemoglobin measurementOrdere d By: Saúl Flowers on 04-20-2024 Hemoglobin (Bld) [Mass/Vol] 17.8 g/dL High 13.0-16.5 [facility] MCV (mean corpuscular volume ) determinationOrdered By: Saúl Flowers on 04-20-2024 MCV (RBC) [Entitic vol] 92.9 fL 80-94 [facility] Mean corpuscular hemoglobin (MCH) determinationOrdered By: Saúl Flowers on 04-20-2024 MCH (RBC) [Entitic mass] 31.7 pg 27.0-32.0 [facility] Mean corpuscular hemoglobin concentration (MCHC) determinationOrdered By: Saúl Flowers on 04-20-2024 MCHC (RBC) [Mass/Vol] 34.1 g/dL 32-36 [facility] Mean platelet volume determi nationOrdered By: Saúl Flowers on 04-20-2024 Platelet mean volume (Bld) [Entitic vol] 9.5 fL 6.2-12.0 [facility] Operative Reporton Operative Report Normal [facility] Platelet countOrdered By: Chacho Flowers on 04-20-2024 Platelets (Bld) [#/Vol] 271 10*3/uL 150-450 [facility] Potassium measurementOrdered By: Saúl Flowers on 04-20-2024 Potassium [Moles/Vol] 4.3 mmol/L 3.5-5.1 [facility] RBC Auto (Bld) [#/Vol]Ordere d By: Saúl Flowers on 04-20-2024 RBC (Bld) [#/Vol] 5.62 10*6/uL 4.6-6.2 [facility] Serum anion gap measurementO rdered By: Saúl Flowers on 04-20-2024 Anion gap [Moles/Vol] 6 mmol/L 08-18 [facility] Serum or plasma calcium brenda urement (mass/volume)Ordered By: Saúl Flowers on 04-20-2024 Calcium [Mass/Vol] 9.3 mg/dL 8.5-10.1 [facility] Serum or plasma creatinine m easurement (mass/volume)Ordered By: Saúl Flowers on 04-20-2024 Creatinine [Mass/Vol] 1.06 mg/dL 0.70-1.30 [facility] Comment on above: The validity of the calculated GFR & GFRAA in patients over 70 years has not been determined. Clinical correlation is essential. Serum or plasma urea nitroge n measurement (mass/volume)Ordered By: Saúl Flowers on 04-20-2024 Urea nitrogen [Mass/Vol] 16 mg/dL 10-21 [facility] Sodium levelOrdered By: Saúl Flowers on 04-20-2024 Sodium [Moles/Vol] 135 mmol/L Low 136-145 [facility] White blood cell (WBC) count Ordered By: Saúl Flowers on 04-20-2024 WBC (Bld) [#/Vol] 8.5 10*3/uL 4.4-11.0 [facility] MR/BMS.BVSon 04-08-2024 MR/BMS.BVS Normal [facility] Cardiology Visit Reporton Cardiology Visit Report Normal [facility] CREATININE FINGERSTICKon CREATININE WB < 1.0 Normal 0.70-1.30 [facility] Comment on above: Performed By: #### L 9100.0200 ####[facility] [address] [place], [place], [address] EGFR WB > 60.0000 Normal >60 [facility] Comment on above: Performed By: #### L 9100.0200 ####[facility] [address] [place], [address] CTA Abd w/Runoff W/WO Contra ston 03-29-2024 CTA Abd w/Runoff W/WO Contrast Normal [facility] Creatinine measurement at be dsideOrdered By: Lubna Manely on 03-29-2024 Bedside Creatinine < 1.0 mg/dL 0.70-1.30 [facility] EGFROrdered By: Lubna Manley on 03-29-2024 Bedside Estimated GFR (eGFR) > 60.0000 mL/min >60 [facility] MR/BMS.BVSon 03-22-2024 MR/BMS.BVS Normal [facility] Lower Ext Art Exam w/o Exerc zachary 03-09-2024 Lower Ext Art Exam w/o Exercis Normal [facility] Internal Medicine Office Vis iton 02-24-2024 Internal Medicine Office Visit Normal [facility] Laboratory - Hematology and Cell countson 02-24-2024 HbA1c (Bld) [Mass fraction] 11.3 % High 4.2-6.3 [facility] MR/BMS.BVSon 02-24-2024 MR/BMS.BVS Normal [facility] Lipid Profileon 02-23-2024 Cholesterol [Mass/Vol] 238 mg/dL High 200 [facility] Comment on above: Result Comment: <200 mg/dL Desirable 200-240 mg/dL Borderline >240 mg/dL High Risk Performed By: #### L 500.3400, L500.4100 ####[facility] [address] [place], [address] Cholesterol in HDL [Mass/Vol] 38 mg/dL Low [facility] Comment on above: Result Comment: The drugs N-Acetylcysteine and Metamizole may falselydepress this assay. Reference Range HDL <40 mg/dL Low HDL Cholesterol HDL >or= 60 mg/dL High HDL Cholesterol Performed By: #### L 500.3400, L500.4100 ####[facility] [address] [place], [address] LDL TNP Normal 0-130 [facility] Comment on above: Performed By: #### L 500.3400, L500.4100 ####[facility] [address] [place], [address] Triglyceride [Mass/Vol] 607 mg/dL High [facility] Comment on above: Result Comment: The drugs N-Acetylcysteine and Metamizole may falselydepress this assay.TRIGLYCERIDE IS GREATER THAN 400 mg/dL.LDL RESULT IS INVALID AND WILL NOT BE REPORTED.Serum Triglycerides Reference Interval Normal <150 mg/dL Borderline high 150 - 199 mg/dL High 200 - 499 mg/dL Very High > or = 500 mg/dL Performed By: #### L 500.3400, L500.4100 ####[facility] [address] [place], [address] VLDL TNP Normal 5-40 [facility] Comment on above: Performed By: #### L 500.3400, L500.4100 ####[facility] [address] [place], [address] Liver Profileon 02-23-2024 Albumin [Mass/Vol] 3.8 g/dL Normal 3.2-5.0 [facility] Comment on above: Performed By: #### L 500.3400, L500.4100 ####[facility] [address] [place], [address] ALK P 69 U/L Normal 45-117 [facility] Comment on above: Performed By: #### L 500.3400, L500.4100 ####[facility] [address] [place], [address] ALT [Catalytic activity/Vol] 37 U/L Normal 16-61 [facility] Comment on above: Performed By: #### L 500.3400, L500.4100 ####[facility] [address] [place], [address] AST [Catalytic activity/Vol] 27 U/L Normal 15-37 [facility] Comment on above: Performed By: #### L 500.3400, L500.4100 ####[facility] [address] [place], [address] Bilirubin [Mass/Vol] 0.70 mg/dL Normal 0.20-1.00 [facility] Comment on above: Result Comment: For patients on eltrombopag therapy, use of Dimension [place] TBIL is not recommended. Performed By: #### L 500.3400, L500.4100 ####[facility] [address] [place], [address] Bilirubin.direct [Mass/Vol] 0.16 mg/dL Normal 0.00-0.30 [facility] Comment on above: Performed By: #### L 500.3400, L500.4100 ####[facility] [address] [place], [address] Globulin (S) [Mass/Vol] 4.0 g/dL Normal 2.2-4.2 [facility] Comment on above: Performed By: #### L 500.3400, L500.4100 ####[facility] [address] [place], [address] T PROT 7.8 g/dL Normal 6.4-8.2 [facility] Comment on above: Performed By: #### L 500.3400, L500.4100 ####[facility] [address] [place], [address] MR/BMS.BVSon 01-07-2024 MR/BMS.BVS Normal [facility] Venous Duplex US, Unilateral on 11-13-2023 Venous Duplex US, Unilateral Normal [facility] Basophil percentageOrdered B y: Xiang Brown on 04-15-2023 Bilirubin [Mass/Vol] 0.60 mg/dL 0.20-1.00 [facility] Comment on above: For patients on eltr ombopag therapy, use of Dimension [place] TBIL is not recommended. Chloride [Moles/Vol] 100 mmol/L 98-107 [facility] Cholesterol [Mass/Vol] 255 mg/dL <200 [facility] Comment on above: <200 mg/dL Desirable 200-240 mg/dL Borderline >240 mg/dL High Risk Glucose [Mass/Vol] 255 mg/dL 74-106 [facility] Comment on above: Glucose result great er than or equal to 200 mg/dLsuggests DIABETES MELLITUS per A.D.A. criteria. Potassium [Moles/Vol] 4.7 mmol/L 3.5-5.1 [facility] Comment on above: Slight Hemolysis, Re sult may be falsely increased. Protein [Mass/Vol] 7.7 g/dL 6.4-8.2 [facility] Sodium [Moles/Vol] 133 mmol/L 136-145 [facility] Triglyceride [Mass/Vol] 411 mg/dL <199 [facility] Comment on above: The drugs N-Acetylcy steine [...] 04-15-2023 ALP [Catalytic activity/Vol] 81 U/L 45-117 [facility] ALT [Catalytic activity/Vol] 40 U/L 16-61 [facility] CO2 [Moles/Vol] 28.0 mmol/L 21.0-32.0 [facility] Globulin (S) [Mass/Vol] 4.1 g/dL 2.2-4.2 [facility] Urea nitrogen/Creatinine [Mass ratio] 11.9 mg/mg 10-20 [facility] Laboratory - Hematology and Cell countson 04-15-2023 HbA1c (Bld) [Mass fraction] 10.6 % 4.2-6.3 [facility] No Panel InformationOrdered By: Xiang Rogers on 04-15-2023 Estimated GFR (MDRD) Amer 96 mL/min >60 [facility] Comment on above: GFR Calc Estimated GFR (MDRD) Non-Af Amer 79 mL/min >60 [facility] Comment on above: Non- GFR Calc Serum or plasma albumin brenda urement (mass/volume)Ordered By: Xiang Rogers on 04-15-2023 Albumin [Mass/Vol] 3.6 g/dL 3.2-5.0 [facility] Serum or plasma albumin/glob ulin mass ratioOrdered By: Xiang Rogers on 04-15-2023 Albumin/Globulin [Mass ratio] 0.9 {ratio} 0.9-2.4 [facility] Serum or plasma calcium brenda urement (mass/volume)Ordered By: Xiang Rogers on 04-15-2023 Calcium [Mass/Vol] 8.9 mg/dL 8.5-10.1 [facility] Serum or plasma cholesterol in HDL measurement (mass/volume)Ordered By: Xiang Rogers on 04-15-2023 Cholesterol in HDL [Mass/Vol] 37 mg/dL >40 [facility] Comment on above: The drugs N-Acetylcy steine and Metamizole may falsely depress this assay. Reference Range HDL <40 mg/dL Low HDL Cholesterol HDL >or= 60 mg/dL High HDL Cholesterol Serum or plasma cholesterol in VLDL measurement (mass/volume)Ordered By: Xiang Rogers on 04-15-2023 Cholesterol in VLDL [Mass/Vol] [facility] Comment on above: Test not performed Serum or plasma creatinine m easurement (mass/volume)Ordered By: Xiang Rogers on 04-15-2023 Creatinine [Mass/Vol] 1.01 mg/dL 0.70-1.30 [facility] Comment on above: The validity of the calculated GFR & GFRAA in patients over 70 years has not been determined. Clinical correlation is essential. Serum or plasma low density lipoprotein (LDL) cholesterol measurement (mass/volume)Ordered By: Xiang Rogers on 04-15-2023 Cholesterol in LDL [Mass/Vol] [facility] Comment on above: Test not performed Serum or plasma urea nitroge n measurement (mass/volume)Ordered By: Xiang Rogers on 04-15-2023 Urea nitrogen [Mass/Vol] 12 mg/dL 7-18 [facility] Thin prep Papanicolaou smear with manual screeningOrdered By: Xiang Rogers on 04-15-2023 Thin prep Papanicolaou smear with manual screening 29 U/L 15-37 [facility] Comment on above: Slight Hemolysis, Re sult may be falsely increased. Thin prep Papanicolaou smear with manual screening 5 5-15 [facility] Laboratory - Hematology and Cell countson 01-13-2023 HbA1c (Bld) [Mass fraction] 9.0 % 4.2-6.3 [facility] Basophil percentageOrdered B y: Dean Pena on 06-02-2022 Bilirubin [Mass/Vol] 0.50 mg/dL 0.20-1.00 [facility] Comment on above: For patients on eltr ombopag therapy, use of Dimension [place] TBIL is not recommended. Cholesterol [Mass/Vol] 326 mg/dL <200 [facility] Comment on above: <200 mg/dL Desirable 200-240 mg/dL Borderline >240 mg/dL High Risk Protein [Mass/Vol] 7.5 g/dL 6.4-8.2 [facility] Triglyceride [Mass/Vol] 883 mg/dL <199 [facility] Comment on above: The drugs N-Acetylcy steine [...] on 06-02-2022 Bilirubin.direct [Mass/Vol] 0.07 mg/dL 0.00-0.30 [facility] Laboratory - Chemistry and C hemistry - challengeOrdered By: Dean Pena on 06-02-2022 ALP [Catalytic activity/Vol] 68 U/L 45-117 [facility] ALT [Catalytic activity/Vol] 35 U/L 16-61 [facility] Globulin (S) [Mass/Vol] 3.9 g/dL 2.2-4.2 [facility] Serum or plasma albumin brenda urement (mass/volume)Ordered By: Dean Pena on 06-02-2022 Albumin [Mass/Vol] 3.6 g/dL 3.2-5.0 [facility] Serum or plasma cholesterol in HDL measurement (mass/volume)Ordered By: Dean Pena on 06-02-2022 Cholesterol in HDL [Mass/Vol] 36 mg/dL >40 [facility] Comment on above: The drugs N-Acetylcy steine and Metamizole may falsely depress this assay. Reference Range HDL <40 mg/dL Low HDL Cholesterol HDL >or= 60 mg/dL High HDL Cholesterol Serum or plasma cholesterol in VLDL measurement (mass/volume)Ordered By: Dean Pena on 06-02-2022 Cholesterol in VLDL [Mass/Vol] [facility] Comment on above: Test not performed Serum or plasma low density lipoprotein (LDL) cholesterol measurement (mass/volume)Ordered By: Dean Pena on 06-02-2022 Cholesterol in LDL [Mass/Vol] [facility] Comment on above: Test not performed Thin prep Papanicolaou smear with manual screeningOrdered By: Dean Pena on 06-02-2022 Thin prep Papanicolaou smear with manual screening 26 U/L 15-37 [facility] Comment on above: Moderate Hemolysis, Result may be falsely increased. Absolute lymphocyte countOrd ered By: Dr. Johnson on 04-19-2022 Lymphocytes Auto (Unsp spec) [#/Vol] 1.77 10*3/uL 0.83-4.51 [facility] Basophil percentageOrdered B y: Dr. Fields on 04-19-2022 Chloride [Moles/Vol] 104 mmol/L 98-107 [facility] Glucose [Mass/Vol] 235 mg/dL 74-106 [facility] Comment on above: Glucose result great er than or equal to 200 mg/dLsuggests DIABETES MELLITUS per A.D.A. criteria. Potassium [Moles/Vol] 4.1 mmol/L 3.5-5.1 [facility] Sodium [Moles/Vol] 137 mmol/L 136-145 [facility] Basophil percentageOrdered B y: Dr. Johsnon on 04-19-2022 Basophils/100 WBC (Bld) 0.5 % 0-1 [facility] Eosinophils/100 WBC (Bld) 4.3 % 0-5 [facility] Neutrophils (Bld) [#/Vol] 3.9 10*3/uL 2.0-7.7 [facility] Neutrophils/100 WBC (Bld) 59.9 % 47-70 [facility] WBC (Bld) [#/Vol] 6.6 10*3/uL 4.4-11.0 [facility] Blood erythrocytes count (nu mber/volume)Ordered By: Dr. Johnson on 04-19-2022 RBC (Bld) [#/Vol] 4.82 10*6/uL 4.6-6.2 [facility] Blood hemoglobin measurement (mass/volume)Ordered By: Dr. Johnson on 04-19-2022 Hemoglobin (Bld) [Mass/Vol] 15.4 g/dL 13.0-16.5 [facility] Blood lymphocytes/100 leukoc ytesOrdered By: Dr. Johnson on 04-19-2022 Lymphocytes/100 WBC (Bld) 27.0 % 19-41 [facility] Blood monocytes/100 leukocyt esOrdered By: Dr. Johnson on 04-19-2022 Monocytes/100 WBC (Bld) 7.8 % 0-10 [facility] Blood platelet mean volumeOr dered By: Dr. Johnson on 04-19-2022 Platelet mean volume (Bld) [Entitic vol] 10.2 fL 6.2-12.0 [facility] Determination of erythrocyte mean corpuscular volume (MCV)Ordered By: Dr. Johnson on 04-19-2022 MCV (RBC) [Entitic vol] 95.4 fL 80-94 [facility] Glucose Glucometer (dC) [M ass/Vol]Ordered By: Dr. Fields on 04-19-2022 Glucose [Mass/Vol] 290 mg/dL 74-106 [facility] Comment on above: MANAGEMENT OF PATIEN T CARE PER NURSING PROTOCOL Hematocrit Auto (Bld) [Volum e fraction]Ordered By: Dr. Johnson on 04-19-2022 Hematocrit (Bld) [Volume fraction] 46.0 % 40-54 [facility] INR in Blood by Coagulation assayOrdered By: Dr. Fields on 04-19-2022 INR Coag (Bld) [Relative time] 1.0 {INR} [facility] Laboratory - Chemistry and C hemistry - challengeOrdered By: Dr. Fields on 04-19-2022 CO2 [Moles/Vol] 26.0 mmol/L 21.0-32.0 [facility] Urea nitrogen/Creatinine [Mass ratio] 15.7 mg/mg 10-20 [facility] Laboratory - CoagulationOrde red By: Dr. Fields on 04-19-2022 aPTT Coag (Bld) [Time] 25.0 s 24.1-36.2 [facility] PT Coag (PPP) [Time] 13.0 s 11.7-14.9 [facility] Laboratory - Hematology and Cell countsOrdered By: Dr. Johnson on 04-19-2022 Erythrocyte distribution width (RBC) [Entitic vol] 43.7 fL 35.1-43.9 [facility] Erythrocyte distribution width (RBC) [Ratio] 12.4 % 11.6-14.6 [facility] Immature granulocytes/100 WBC (Bld) 0.500 % 0.0-0.9 [facility] Comment on above: IG% - Immature Granu locytes (promyelocytes, myelocytes and metamyelocytes) > 1% indicates that a LEFT SHIFT is Present. MCH (RBC) [Entitic mass] 32.0 pg 27.0-32.0 [facility] Nucleated RBC/100 WBC (Bld) [Ratio] 0 % 0-5 [facility] MCHC Auto (RBC) [Mass/Vol]Or dered By: Dr. Johnson on 04-19-2022 MCHC (RBC) [Mass/Vol] 33.5 g/dL 32-36 [facility] No Panel InformationOrdered By: Dr. Fields on 04-19-2022 Estimated Creatinine Clearance Calc 79.98 ml/min [facility] Estimated GFR (MDRD) Amer 95 mL/min >60 [facility] Comment on above: GFR Calc Estimated GFR (MDRD) Non-Af Amer 79 mL/min >60 [facility] Comment on above: Non- GFR Calc Platelets bldOrdered By: Dr. Johnson on 04-19-2022 Platelets (Bld) [#/Vol] 254 10*3/uL 150-450 [facility] Serum or plasma calcium brenda urement (mass/volume)Ordered By: Dr. Fields on 04-19-2022 Calcium [Mass/Vol] 8.9 mg/dL 8.5-10.1 [facility] Serum or plasma creatinine m easurement (mass/volume)Ordered By: Dr. Fields on 04-19-2022 Creatinine [Mass/Vol] 1.02 mg/dL 0.70-1.30 [facility] Comment on above: The validity of the calculated GFR & GFRAA in patients over 70 years has not been determined. Clinical correlation is essential. Serum or plasma urea nitroge n measurement (mass/volume)Ordered By: Dr. Fields on 04-19-2022 Urea nitrogen [Mass/Vol] 16 mg/dL 7-18 [facility] Thin prep Papanicolaou smear with manual screeningOrdered By: Dr. Fields on 04-19-2022 Thin prep Papanicolaou smear with manual screening 7 5-15 [facility] Absolute lymphocyte counton 04-18-2022 Lymphocytes Auto (Unsp spec) [#/Vol] 2.31 10*3/uL 0.83-4.51 [facility] Work Phone: Basophil percentageon 2022 Basophils/100 WBC (Bld) 0.5 % 0-1 [facility] Work Phone: Chloride [Moles/Vol] 103 mmol/L 98-107 [facility] Work Phone: Eosinophils/100 WBC (Bld) 4.3 % 0-5 [facility] Work Phone: Glucose [Mass/Vol] 252 mg/dL 74-106 [facility] Work Phone: Comment on above: Moderate Lipemia, Re sult may be falsely increased.Glucose result greater than or equal to 200 mg/dLsuggests DIABETES MELLITUS per A.D.A. criteria. Neutrophils (Bld) [#/Vol] 4.7 10*3/uL 2.0-7.7 [facility] Work Phone: Neutrophils/100 WBC (Bld) 57.7 % 47-70 [facility] Work Phone: Potassium [Moles/Vol] 3.9 mmol/L 3.5-5.1 [facility] Work Phone: Comment on above: Moderate Hemolysis, Result may be falsely increased. Sodium [Moles/Vol] 136 mmol/L 136-145 [facility] Work Phone: WBC (Bld) [#/Vol] 8.1 10*3/uL 4.4-11.0 [facility] Work Phone: Blood erythrocytes count (nu mber/volume)on 04-18-2022 RBC (Bld) [#/Vol] 4.98 10*6/uL 4.6-6.2 [facility]: Blood hemoglobin measurement (mass/volume)on 04-18-2022 Hemoglobin (Bld) [Mass/Vol] 16.4 g/dL 13.0-16.5 [facility] Work Phone: Blood lymphocytes/100 leukoc yteson 04-18-2022 Lymphocytes/100 WBC (Bld) 28.6 % 19-41 [facility] Work Phone: [phone] Blood monocytes/100 leukocyt eson 04-18-2022 Monocytes/100 WBC (Bld) 8.5 % 0-10 [facility] Work Phone: Blood platelet mean volumeon 04-18-2022 Platelet mean volume (Bld) [Entitic vol] 10.2 fL 6.2-12.0 [facility] Work Phone: Determination of erythrocyte mean corpuscular volume (MCV)on 04-18-2022 MCV (RBC) [Entitic vol] 97.4 fL 80-94 [facility] Work Phone: Hematocrit Auto (Bld) [Volum e fraction]on 04-18-2022 Hematocrit (Bld) [Volume fraction] 48.5 % 40-54 [facility] Work Phone: INR in Blood by Coagulation assayon 04-18-2022 INR Coag (Bld) [Relative time] 1.0 {INR} [facility] Work Phone: Laboratory - Chemistry and C hemistry - challengeon 04-18-2022 CO2 [Moles/Vol] 28.0 mmol/L 21.0-32.0 [facility] Work Phone: Urea nitrogen/Creatinine [Mass ratio] 17.1 mg/mg 10-20 [facility] Work Phone: Laboratory - Chemistry and C hemistry - challengeOrdered By: Dr. Moura on 04-18-2022 Magnesium [Mass/Vol] 1.8 mg/dL 1.6-2.6 [facility] Comment on above: Moderate Hemolysis, Result may be falsely increased. Laboratory - Coagulationon 0 04-18-2022 aPTT Coag (Bld) [Time] 25.6 s 24.1-36.2 [facility] Work Phone: PT Coag (PPP) [Time] 12.3 s 11.7-14.9 [facility] Work Phone: [phone] Laboratory - Hematology and Cell countson 04-18-2022 Erythrocyte distribution width (RBC) [Entitic vol] 44.8 fL 35.1-43.9 [facility] Work Phone: [phone] Erythrocyte distribution width (RBC) [Ratio] 12.4 % 11.6-14.6 [facility] Work Phone: [phone] Immature granulocytes/100 WBC (Bld) 0.400 % 0.0-0.9 [facility] Work Phone: Comment on above: IG% - Immature Granu locytes (promyelocytes, myelocytes and metamyelocytes) > 1% indicates that a LEFT SHIFT is Present. MCH (RBC) [Entitic mass] 32.9 pg 27.0-32.0 [facility] Work Phone: [phone] Nucleated RBC/100 WBC (Bld) [Ratio] 0 % 0-5 [facility] Work Phone: [phone] MCHC Auto (RBC) [Mass/Vol]on 04-18-2022 MCHC (RBC) [Mass/Vol] 33.8 g/dL 32-36 [facility] Work Phone: [phone] No Panel InformationOrdered By: Dr. Fields on 04-18-2022 Troponin I High Sensitivity 1889 pg/mL 3.0-78.0 [facility] Comment on above: Critical Result(s) C alled at: 09:16:37 04/18/2022 by: Rula Gutierrez. Results read back by same. Please Note: New Test Units and Gender Specific Reference Ranges. For more information see Policy Stat Procedure [place] High Sensitivity Troponin (TNIH) and attachments. No Panel Informationon 04-18 Troponin I High Sensitivity 241 pg/mL 3.0-78.0 [facility] Work Phone: Comment on above: Critical Result(s) C simona at: 04:49:49 04/18/2022 by: NICOLE Matthews GEOLOGY SCIENTIST. Results read back by same. Please Note: New Test Units and Gender Specific Reference Ranges. For more information see Policy Stat Procedure [place] High Sensitivity Troponin (TNIH) and attachments. Estimated Creatinine Clearance Calc 77.69 ml/min [facility] Work Phone: Estimated GFR (MDRD) Amer 92 mL/min >60 [facility] Work Phone: Comment on above: GFR Calc Estimated GFR (MDRD) Non-Af Amer 76 mL/min >60 [facility] Work Phone: Comment on above: Non- GFR Calc Platelets bldon 04-18-2022 Platelets (Bld) [#/Vol] 254 10*3/uL 150-450 [facility] Work Phone: Serum or plasma calcium brenda urement (mass/volume)on 04-18-2022 Calcium [Mass/Vol] 8.5 mg/dL 8.5-10.1 [facility] Work Phone: Comment on above: Moderate Lipemia, Re sult may be falsely decreased. Serum or plasma creatinine m easurement (mass/volume)on 04-18-2022 Creatinine [Mass/Vol] 1.05 mg/dL 0.70-1.30 [facility] Work Phone: Comment on above: The validity of the calculated GFR & GFRAA in patients over 70 years has not been determined. Clinical correlation is essential. 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 Normal [facility] CT PELVIS WO IVCONon 022 CT PELVIS WO IVCON * * *Final Report* * * DATE OF EXAM: Jan 28 2022 10:28AM [facility] 0556 - CT PELVIS WO IVCON [...] Fat-containing left inguinal hernia. Scattered colonic diverticula. 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 Normal [facility] Absolute lymphocyte counton 01-01-2022 Lymphocytes Auto (Unsp spec) [#/Vol] 2.63 10*3/uL 0.83-4.51 [facility] Work Phone: Basophil percentageon 2021 Basophils/100 WBC (Bld) 0.3 % 0-1 [facility] Work Phone: Chloride [Moles/Vol] 98 mmol/L 98-107 [facility] Work Phone: Eosinophils/100 WBC (Bld) 3.4 % 0-5 [facility] Work Phone: Glucose [Mass/Vol] 283 mg/dL 74-106 [facility] Work Phone: Comment on above: Moderate Lipemia, Re sult may be falsely increased.Glucose result greater than or equal to 200 mg/dLsuggests DIABETES MELLITUS per A.D.A. criteria. Neutrophils (Bld) [#/Vol] 3.5 10*3/uL 2.0-7.7 [facility] Work Phone: Neutrophils/100 WBC (Bld) 51.0 % 47-70 [facility] Work Phone: Potassium [Moles/Vol] 4.2 mmol/L 3.5-5.1 [facility] Work Phone: [phone] Comment on above: Moderate Hemolysis, Result may be falsely increased. Sodium [Moles/Vol] 133 mmol/L 136-145 [facility] Work Phone: [phone] WBC (Bld) [#/Vol] 6.8 10*3/uL 4.4-11.0 [facility] Work Phone: Blood erythrocytes count (nu mber/volume)on 01-01-2022 RBC (Bld) [#/Vol] 4.96 10*6/uL 4.6-6.2 [facility] Work Phone: [phone] Blood hemoglobin measurement (mass/volume)on 01-01-2022 Hemoglobin (Bld) [Mass/Vol] 16.4 g/dL 13.0-16.5 [facility] Work Phone: Blood lymphocytes/100 leukoc yteson 01-01-2022 Lymphocytes/100 WBC (Bld) 38.7 % 19-41 [facility] Work Phone: [phone] Blood monocytes/100 leukocyt eson 01-01-2022 Monocytes/100 WBC (Bld) 6.3 % 0-10 [facility] Work Phone: Blood platelet mean volumeon 01-01-2022 Platelet mean volume (Bld) [Entitic vol] 10.3 fL 6.2-12.0 [facility] Work Phone: [phone] Determination of erythrocyte mean corpuscular volume (MCV)on 01-01-2022 MCV (RBC) [Entitic vol] 93.5 fL 80-94 [facility] Work Phone: [phone] Hematocrit Auto (Bld) [Volum e fraction]on 01-01-2022 Hematocrit (Bld) [Volume fraction] 46.4 % 40-54 [facility] Work Phone: Laboratory - Chemistry and C hemistry - challengeon 01-01-2022 CO2 [Moles/Vol] 30.0 mmol/L 21.0-32.0 [facility] Work Phone: [phone] Urea nitrogen/Creatinine [Mass ratio] 15.3 mg/mg 10-20 [facility] Work Phone: [phone] Laboratory - Hematology and Cell countson 01-01-2022 Erythrocyte distribution width (RBC) [Entitic vol] 41.0 fL 35.1-43.9 [facility] Work Phone: [phone] Erythrocyte distribution width (RBC) [Ratio] 11.9 % 11.6-14.6 [facility] Work Phone: [phone] Immature granulocytes/100 WBC (Bld) 0.300 % 0.0-0.9 [facility] Work Phone: [phone] Comment on above: IG% - Immature Granu locytes (promyelocytes, myelocytes and metamyelocytes) > 1% indicates that a LEFT SHIFT is Present. MCH (RBC) [Entitic mass] 33.1 pg 27.0-32.0 [facility] Work Phone: [phone] Nucleated RBC/100 WBC (Bld) [Ratio] 0 % 0-5 [facility] Work Phone: [phone] MCHC Auto (RBC) [Mass/Vol]on 01-01-2022 MCHC (RBC) [Mass/Vol] 35.3 g/dL 32-36 [facility] Work Phone: [phone] No Panel Informationon 01-01 Estimated GFR (MDRD) Amer 100 mL/min >60 [facility] Work Phone: [phone] Comment on above: GFR Calc Estimated GFR (MDRD) Non-Af Amer 82 mL/min >60 [facility] Work Phone: [phone] Comment on above: Non- GFR Calc Vitamin D 25-Hydroxy 13.3 ng/mL [facility] Work Phone: [phone] Comment on above: Vitamin D 25(OH) Sta tus Range Deficiency <20 ng/mL (50nmol/L) Insufficiency 20 - 30 ng/mL (50 - 75 nmol/L) Sufficiency 30 - 100 ng/mL (75 - 250 nmol/L) Toxicity >100 ng/mL (>250 nmol/L) Platelets bldon 01-01-2022 Platelets (Bld) [#/Vol] 258 10*3/uL 150-450 [facility] Work Phone: Serum or plasma calcium brenda urement (mass/volume)on 01-01-2022 Calcium [Mass/Vol] 8.2 mg/dL 8.5-10.1 [facility] Work Phone: Comment on above: Moderate Lipemia, Re sult may be falsely decreased. Serum or plasma creatinine m easurement (mass/volume)on 01-01-2022 Creatinine [Mass/Vol] 0.98 mg/dL 0.70-1.30 [facility] Work Phone: Comment on above: The validity of the calculated GFR & GFRAA in patients over 70 years has not been determined. Clinical correlation is essential. Serum or plasma urea nitroge n measurement (mass/volume)on 01-01-2022 Urea nitrogen [Mass/Vol] 15 mg/dL 7-18 [facility] Work Phone: Thin prep Papanicolaou smear with manual screeningon 01-01-2022 Thin prep Papanicolaou smear with manual screening 5 5-15 [facility] Work Phone: Whole blood hemoglobin A1c/t otal hemoglobin ratio (mass fraction)on 01-01-2022 HbA1c (Bld) [Mass fraction] 11.6 % 3.8-5.6 [facility] Work Phone: Comment on above: Normal < 5.7 % Predi abetic 5.7 - 6.4 % Diabetic >or= 6.5 % Please note range changes. 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 Normal [facility] No Panel Informationon 07-18 Influenza Types A,B Direct FA (PORFIRIO) [facility] Work Phone: Basophil percentageon 2021 Chloride [Moles/Vol] 92 mmol/L 98-107 [facility] Work Phone: Cholesterol [Mass/Vol] 384 mg/dL <200 [facility] Work Phone: Comment on above: Moderate Icterus, Re sult may be falsely decreased. <200 mg/dL Desirable 200-240 mg/dL Borderline >240 mg/dL High Risk Glucose [Mass/Vol] 351 mg/dL 74-106 [facility] Work Phone: Comment on above: Moderate Lipemia, Re sult may be falsely increased.Glucose result greater than or equal to 200 mg/dLsuggests DIABETES MELLITUS per A.D.A. criteria. Potassium [Moles/Vol] 4.3 mmol/L 3.5-5.1 [facility] Work Phone: Comment on above: Moderate Hemolysis, Result may be falsely increased. Sodium [Moles/Vol] 127 mmol/L 136-145 [facility] Work Phone: [phone] Triglyceride [Mass/Vol] mg/dL [facility] Work Phone: Comment on above: The drugs N-Acetylcy steine and Metamizole may falsely depress this assay. Laboratory - Chemistry and C hemistry - challengeon 06-13-2021 CO2 [Moles/Vol] 29.0 mmol/L 21.0-32.0 [facility] Work Phone: Urea nitrogen/Creatinine [Mass ratio] 18.6 mg/mg 10-20 [facility] Work Phone: No Panel Informationon 06-13 Estimated GFR (MDRD) Amer 101 mL/min >60 [facility] Work Phone: Comment on above: GFR Calc Estimated GFR (MDRD) Non-Af Amer 84 mL/min >60 [facility] Work Phone: Comment on above: Non- GFR Calc Serum or plasma calcium brenda urement (mass/volume)on 06-13-2021 Calcium [Mass/Vol] 7.1 mg/dL 8.5-10.1 [facility] Work Phone: Comment on above: Moderate Lipemia, Re sult may be falsely decreased. Serum or plasma cholesterol in HDL measurement (mass/volume)on 06-13-2021 Cholesterol in HDL [Mass/Vol] 32 mg/dL [facility] Work Phone: Comment on above: The drugs N-Acetylcy steine and Metamizole may falsely depress this assay. Reference Range HDL <40 mg/dL Low HDL Cholesterol HDL >or= 60 mg/dL High HDL Cholesterol Serum or plasma cholesterol in VLDL measurement (mass/volume)on 06-13-2021 Cholesterol in VLDL [Mass/Vol] 200 mg/dL 5-40 [facility] Work Phone: Comment on above: Previous reported re sult: TNP mg/dLEdited by: JOHN on 06/13/21:1716 Serum or plasma creatinine m easurement (mass/volume)on 06-13-2021 Creatinine [Mass/Vol] 0.97 mg/dL 0.70-1.30 [facility] Work Phone: Comment on above: Moderate Icterus, Re sult may be falsely decreased.The validity of the calculated GFR & GFRAA in patients over 70 years has not been determined. Clinical correlation is essential. Serum or plasma low density lipoprotein (LDL) cholesterol measurement (mass/volume)on 06-13-2021 Cholesterol in LDL [Mass/Vol] TNP [facility] Work Phone: Comment on above: Test not performed Serum or plasma urea nitroge n measurement (mass/volume)on 06-13-2021 Urea nitrogen [Mass/Vol] 18 mg/dL 7-18 [facility] Work Phone: Thin prep Papanicolaou smear with manual screeningon 06-13-2021 Thin prep Papanicolaou smear with manual screening 6 5-15 [facility] Work Phone: Whole blood hemoglobin A1c/t otal hemoglobin ratio (mass fraction)on 06-13-2021 HbA1c (Bld) [Mass fraction] 11.7 % 3.8-5.6 [facility] Work Phone: Comment on above: Normal < 5.7 % Predi abetic 5.7 - 6.4 % Diabetic >or= 6.5 % Please note range changes. FABRICIOOVon 04-01-2021 CNOV Office Visit (UCWSTR ) JAYLEN MEJIA ([id number]) 1960 M Date Time Provider Department 04/01/21 8:00 AM MAXX OWEN [facility] During your visit today, we recorded [...] the esophagus (more content not included)... Normal [facility] Influenza virus A and B and SARS-CoV-2 (COVID-19) Ag panel - Upper respiratory specim SARS-CoV-2 (COVID-19) RNA HAYDER+probe Ql (Resp) [facility] Work Phone: No Panel Information SARS-CoV-2 & FLU Antigen (Rapid) [facility] Work Phone: Vital Signs Date Time Vital Sign Value Performing Clinician Facility 11-10-2024 20:27-0400 Body temperature 98.9 [degF] Dr. Xiang Rogers DO Work Phone: [facility] 11-10-2024 20:27-0400 Diastolic blood pressure 77 mm[Hg] Dr. Xiang Rogers DO Work Phone: [facility] 11-10-2024 20:27-0400 Heart rate 95 /min Dr. Xiang Rogers DO Work Phone: [facility] 11-10-2024 20:27-0400 Respiratory rate 17 /min Dr. Xiang Rogers DO Work Phone: [facility] 11-10-2024 20:27-0400 SaO2% (BldA) [Mass fraction] 98 % Dr. Xiang Rogers DO Work Phone: [facility] 11-10-2024 20:27-0400 Systolic blood pressure 127 mm[Hg] Dr. Xiang Rogers DO Work Phone: [facility] 11-10-2024 20:00-0400 Inhaled oxygen flow rate 2 L/min Dr. Xiang Rogers DO Work Phone: [facility] 11-10-2024 14:47-0400 Body height 180.[address] Xiang Rogers DO Work Phone: [facility] 11-10-2024 10:14-0400 Body height 180.[address] Xiang Rogers DO Work Phone: [facility] 11-10-2024 10:14-0400 Body mass index (BMI) [Ratio] 30.1 kg/m2 Dr. Xiang Rogers DO Work Phone: [facility] 11-10-2024 10:14-0400 Body temperature 97 [degF] Dr. Xiang Rogers DO Work Phone: [facility] 11-10-2024 10:14-0400 Body weight 97.[address] Xiang Rogers DO Work Phone: [facility] 11-10-2024 10:14-0400 Diastolic blood pressure 64 mm[Hg] Dr. Xiang Rogers DO Work Phone: [facility] 11-10-2024 10:14-0400 Heart rate 96 /min Dr. Xiang Rogers DO Work Phone: [facility] 11-10-2024 10:14-0400 Respiratory rate 16 /min Dr. Xiang Rogers DO Work Phone: [facility] 11-10-2024 10:14-0400 SaO2% (BldA) [Mass fraction] 98 % Dr. Xiang Rogers DO Work Phone: [facility] 11-10-2024 10:14-0400 Systolic blood pressure 100 mm[Hg] Dr. Xiang Rogers DO Work Phone: [facility] 11-04-2024 13:57-0400 Body height 180.[address] Xiang Rogers DO Work Phone: [facility] 11-04-2024 13:57-0400 Body mass index (BMI) [Ratio] 28.8 kg/m2 Dr. Xiang Rogers DO Work Phone: [facility] 11-04-2024 13:57-0400 Body temperature 98.4 [degF] Dr. Xiang Rogers DO Work Phone: [facility] 11-04-2024 13:57-0400 Body weight 93.[address] Xiang Rogers DO Work Phone: [facility] 11-04-2024 13:57-0400 Diastolic blood pressure 60 mm[Hg] Dr. Xiang Rogers DO Work Phone: [facility] 11-04-2024 13:57-0400 Heart rate 92 /min Dr. Xiang Rogers DO Work Phone: [facility] 11-04-2024 13:57-0400 Respiratory rate 19 /min Dr. Xiang Rogers DO Work Phone: [facility] 11-04-2024 13:57-0400 SaO2% (BldA) [Mass fraction] 98 % Dr. Xiang Rogers DO Work Phone: [facility] 11-04-2024 13:57-0400 Systolic blood pressure 100 mm[Hg] Dr. Xiang Rogers DO Work Phone: [facility] 11-03-2024 10:29-0400 Body height 180.[address] Xiang Rogers DO Work Phone: [facility] 11-03-2024 10:29-0400 Body mass index (BMI) [Ratio] 28.5 kg/m2 Dr. Xiang Rogers DO Work Phone: [facility] 11-03-2024 10:29-0400 Body weight 92.[address] Xiang Rogers DO Work Phone: [facility] 11-03-2024 10:29-0400 Diastolic blood pressure 65 mm[Hg] Dr. Xiang Rogers DO Work Phone: [facility] 11-03-2024 10:29-0400 Heart rate 75 /min Dr. Xiang Rogers DO Work Phone: [facility] 11-03-2024 10:29-0400 Respiratory rate 18 /min Dr. Xiang Rogers DO Work Phone: [facility] 11-03-2024 10:29-0400 Systolic blood pressure 99 mm[Hg] Dr. Xiang Rogers DO Work Phone: [facility] 10-27-2024 01:16-0400 Body temperature 98.2 [degF] Dr. Xiang Rogers DO Work Phone: [facility] 10-27-2024 01:16-0400 Diastolic blood pressure 80 mm[Hg] Dr. Xiang Rogers DO Work Phone: [facility] 10-27-2024 01:16-0400 Heart rate 105 /min Dr. Xiang Rogers DO Work Phone: [facility] 10-27-2024 01:16-0400 Respiratory rate 14 /min Dr. Xiang Rogers DO Work Phone: [facility] 10-27-2024 01:16-0400 SaO2% (BldA) [Mass fraction] 99 % Dr. Xiang Rogers DO Work Phone: [facility] 10-27-2024 01:16-0400 Systolic blood pressure 119 mm[Hg] Dr. Xiang Rogers DO Work Phone: [facility] 10-26-2024 23:38-0400 Body mass index (BMI) [Ratio] 28.4 kg/m2 Dr. Xiang Rogers DO Work Phone: [facility] 10-26-2024 23:38-0400 Body weight 92.[address] Xiang Rogers DO Work Phone: [facility] 10-26-2024 23:29-0400 Body height 180.[address] Xiang Rogers DO Work Phone: [facility] 10-23-2024 20:45-0400 Body temperature 97.8 [degF] Dr. Xiang Rogers DO Work Phone: [facility] 10-23-2024 20:45-0400 Diastolic blood pressure 73 mm[Hg] Dr. Xiang Rogers DO Work Phone: [facility] 10-23-2024 20:45-0400 Heart rate 93 /min Dr. Xiang Rogers DO Work Phone: [facility] 10-23-2024 20:45-0400 Respiratory rate 18 /min Dr. Xiang Rogers DO Work Phone: [facility] 10-23-2024 20:45-0400 SaO2% (BldA) [Mass fraction] 94 % Dr. Xiang Rogers DO Work Phone: [facility] 10-23-2024 20:45-0400 Systolic blood pressure 103 mm[Hg] Dr. Xiang Rogers DO Work Phone: [facility] 10-23-2024 19:03-0400 Body mass index (BMI) [Ratio] 30.2 kg/m2 Dr. Xiang Rogers DO Work Phone: [facility] 10-23-2024 19:03-0400 Body weight 98.[address] Xiang Rogers DO Work Phone: [facility] 10-23-2024 17:54-0400 Body height 180.[address] Xiang Rogers DO Work Phone: [facility] 10-21-2024 16:52-0400 Body temperature 98.2 [degF] Dr. Xiang Rogers DO Work Phone: [facility] 10-21-2024 16:52-0400 Diastolic blood pressure 62 mm[Hg] Dr. Xiang Rogers DO Work Phone: [facility] 10-21-2024 16:52-0400 Heart rate 95 /min Dr. Xiang Rogers DO Work Phone: [facility] 10-21-2024 16:52-0400 Respiratory rate 20 /min Dr. Xiang Rogers DO Work Phone: [facility] 10-21-2024 16:52-0400 SaO2% (BldA) [Mass fraction] 99 % Dr. Xiang Rogers DO Work Phone: [facility] 10-21-2024 16:52-0400 Systolic blood pressure 108 mm[Hg] Dr. Xiang Rogers DO Work Phone: [facility] 10-21-2024 16:26-0400 Body height 180.[address] Xiang Rogers DO Work Phone: [facility] 10-21-2024 16:26-0400 Body mass index (BMI) [Ratio] 27 kg/m2 Dr. Xiang Rogers DO Work Phone: [facility] 10-21-2024 16:26-0400 Body weight 87.[address] Xiang Rogers DO Work Phone: [facility] 10-19-2024 23:27-0400 Body temperature 97.9 [degF] Dr. Xiang Rogers DO Work Phone: [facility] 10-19-2024 23:27-0400 Diastolic blood pressure 76 mm[Hg] Dr. Xiang Rogers DO Work Phone: [facility] 10-19-2024 23:27-0400 Heart rate 98 /min Dr. Xiang Rogers DO Work Phone: [facility] 10-19-2024 23:27-0400 Respiratory rate 16 /min Dr. Xiang Rogers DO Work Phone: [facility] 10-19-2024 23:27-0400 SaO2% (BldA) [Mass fraction] 96 % Dr. Xiang Rogers DO Work Phone: [facility] 10-19-2024 23:27-0400 Systolic blood pressure 114 mm[Hg] Dr. Xiang Rogers DO Work Phone: [facility] 10-19-2024 18:20-0400 Body height 180.[address] Xiang Rogers DO Work Phone: [facility] 10-19-2024 18:20-0400 Body mass index (BMI) [Ratio] 27 kg/m2 Dr. Xiang Rogers DO Work Phone: [facility] 10-19-2024 18:20-0400 Body weight 87.[address] Xiang Rogers DO Work Phone: [facility] 09-27-2024 09:59-0400 Body height 180.[address] Xiang Rogers DO Work Phone: [facility] 09-27-2024 09:59-0400 Body mass index (BMI) [Ratio] 26 kg/m2 Dr. Xiang Rogers DO Work Phone: [facility] 09-27-2024 09:59-0400 Body weight 84.[address] Xiang Rogers DO Work Phone: [facility] 09-27-2024 09:59-0400 Diastolic blood pressure 64 mm[Hg] Dr. Xiang Rogers DO Work Phone: [facility] 09-27-2024 09:59-0400 Heart rate 83 /min Dr. Xiang Rogers DO Work Phone: [facility] 09-27-2024 09:59-0400 Respiratory rate 18 /min Dr. Xiang Rogers DO Work Phone: [facility] 09-27-2024 09:59-0400 Systolic blood pressure 103 mm[Hg] Dr. Xiang Rogers DO Work Phone: [facility] 09-21-2024 14:17-0400 Body temperature 97.8 [degF] Dr. Xiang Rogers DO Work Phone: [facility] 09-21-2024 14:17-0400 Diastolic blood pressure 54 mm[Hg] Dr. Xiang Rogers DO Work Phone: [facility] 09-21-2024 14:17-0400 Heart rate 82 /min Dr. Xiang Rogers DO Work Phone: [facility] 09-21-2024 14:17-0400 Respiratory rate 14 /min Dr. Xiang Rogers DO Work Phone: [facility] 09-21-2024 14:17-0400 SaO2% (BldA) [Mass fraction] 97 % Dr. Xiang Rogers DO Work Phone: [facility] 09-21-2024 14:17-0400 Systolic blood pressure 90 mm[Hg] Dr. Xiang Rogers DO Work Phone: [facility] 09-19-2024 10:52-0400 Body height 180.[address] Xiang Rogers DO Work Phone: [facility] 09-19-2024 10:52-0400 Body weight 87.[address] Xiang Rogers DO Work Phone: [facility] 09-18-2024 15:22-0400 Body mass index (BMI) [Ratio] 26.9 kg/m2 Dr. Xiang Rogers DO Work Phone: [facility] 09-18-2024 14:00-0400 Diastolic blood pressure 70 mm[Hg] Dr. Xiang Rogers DO Work Phone: [facility] 09-18-2024 14:00-0400 Heart rate 103 /min Dr. Xiang Rogers DO Work Phone: [facility] 09-18-2024 14:00-0400 Respiratory rate 20 /min Dr. Xiang Rogers DO Work Phone: [facility] 09-18-2024 14:00-0400 SaO2% (BldA) [Mass fraction] 97 % Dr. Xiang Rogers DO Work Phone: [facility] 09-18-2024 14:00-0400 Systolic blood pressure 120 mm[Hg] Dr. Xiang Rogers DO Work Phone: [facility] 09-18-2024 13:37-0400 Body temperature 98.2 [degF] Dr. Xiang Rogers DO Work Phone: [facility] 09-18-2024 09:51-0400 Body height 180.[address] Xiang Rogers DO Work Phone: [facility] 09-18-2024 09:51-0400 Body mass index (BMI) [Ratio] 26.9 kg/m2 Dr. Xiang Rogers DO Work Phone: [facility] 09-18-2024 09:51-0400 Body weight 87.[address] Xiang Rogers DO Work Phone: [facility] 08-02-2024 11:29-0400 Body mass index (BMI) [Ratio] 26.6 kg/m2 Dr. Xiang Rogers DO Work Phone: [facility] 08-02-2024 11:29-0400 Body temperature 96.4 [degF] Dr. Xiang Rogers DO Work Phone: [facility] 08-02-2024 11:29-0400 Body weight 84.[address] Xiang Rogers DO Work Phone: [facility] 08-02-2024 11:29-0400 Diastolic blood pressure 66 mm[Hg] Dr. Xiang Rogers DO Work Phone: [facility] 08-02-2024 11:29-0400 Heart rate 87 /min Dr. Xiang Rogers DO Work Phone: [facility] 08-02-2024 11:29-0400 Respiratory rate 16 /min Dr. Xiang Rogers DO Work Phone: [facility] 08-02-2024 11:29-0400 SaO2% (BldA) [Mass fraction] 98 % Dr. Xiang Rogers DO Work Phone: [facility] 08-02-2024 11:29-0400 Systolic blood pressure 118 mm[Hg] Dr. Xiang Rogers DO Work Phone: [facility] 07-29-2024 23:02-0400 Body temperature 97.2 [degF] Dr. Xiang Rogers DO Work Phone: [facility] 07-29-2024 23:02-0400 Diastolic blood pressure 69 mm[Hg] Dr. Xiang Rogers DO Work Phone: [facility] 07-29-2024 23:02-0400 Heart rate 82 /min Dr. Xiang Rogers DO Work Phone: [facility] 07-29-2024 23:02-0400 Respiratory rate 16 /min Dr. Xiang Rogers DO Work Phone: [facility] 07-29-2024 23:02-0400 SaO2% (BldA) [Mass fraction] 95 % Dr. Xiang Rogers DO Work Phone: [facility] 07-29-2024 23:02-0400 Systolic blood pressure 117 mm[Hg] Dr. Xiang Rogers DO Work Phone: [facility] 07-29-2024 20:00-0400 Body mass index (BMI) [Ratio] 26.8 kg/m2 Dr. Xiang Rogers DO Work Phone: [facility] 07-29-2024 20:00-0400 Body weight 87.[address] Xiang Rogers DO Work Phone: [facility] 07-14-2024 10:05-0400 Body temperature 98.2 [degF] Dr. Xiang Rogers DO Work Phone: [facility] 07-14-2024 10:05-0400 Body weight 85.[address] Xiang Rogers DO Work Phone: [facility] 07-14-2024 10:05-0400 Diastolic blood pressure 60 mm[Hg] Dr. Xiang Rogers DO Work Phone: [facility] 07-14-2024 10:05-0400 Heart rate 90 /min Dr. Xiang Rogers DO Work Phone: [facility] 07-14-2024 10:05-0400 Respiratory rate 16 /min Dr. Xiang Rogers DO Work Phone: [facility] 07-14-2024 10:05-0400 SaO2% (BldA) [Mass fraction] 96 % Dr. Xiang Rogers DO Work Phone: [facility] 07-14-2024 10:05-0400 Systolic blood pressure 113 mm[Hg] Dr. Xiang Rogers DO Work Phone: [facility] 07-12-2024 10:03-0400 Body mass index (BMI) [Ratio] 25.9 kg/m2 Dr. Xiang Rogers DO Work Phone: [facility] 07-12-2024 10:03-0400 Body weight 84.[address] Xiang Rogers DO Work Phone: [facility] 07-12-2024 10:03-0400 Diastolic blood pressure 72 mm[Hg] Dr. Xiang Rogers DO Work Phone: [facility] 07-12-2024 10:03-0400 Heart rate 84 /min Dr. Xiang Rogers DO Work Phone: [facility] 07-12-2024 10:03-0400 Respiratory rate 20 /min Dr. Xiang Rogers DO Work Phone: [facility] 07-12-2024 10:03-0400 SaO2% (BldA) [Mass fraction] 96 % Dr. Xiang Rogers DO Work Phone: [facility] 07-12-2024 10:03-0400 Systolic blood pressure 120 mm[Hg] Dr. Xiang Rogers DO Work Phone: [facility] 06-20-2024 10:00-0400 Body temperature 98.1 [degF] Dr. Xaing Rogers DO Work Phone: [facility] 06-20-2024 10:00-0400 Diastolic blood pressure 68 mm[Hg] Dr. Xiang Rogers DO Work Phone: [facility] 06-20-2024 10:00-0400 Heart rate 74 /min Dr. Xiang Rogers DO Work Phone: [facility] 06-20-2024 10:00-0400 Respiratory rate 16 /min Dr. Xiang Rogers DO Work Phone: [facility] 06-20-2024 10:00-0400 SaO2% (BldA) [Mass fraction] 99 % Dr. Xiang Rogers DO Work Phone: [facility] 06-20-2024 10:00-0400 Systolic blood pressure 112 mm[Hg] Dr. Xiang Rogers DO Work Phone: [facility] 06-20-2024 04:34-0400 Body mass index (BMI) [Ratio] 26.7 kg/m2 Dr. Xiang Rogers DO Work Phone: [facility] 06-20-2024 04:34-0400 Body weight [address] Xiang Rogers DO Work Phone: [facility] 06-19-2024 10:35-0400 Inhaled oxygen flow rate 1 L/min Dr. Xiang Rogers DO Work Phone: [facility] 06-18-2024 05:54-0400 Inhaled oxygen concentration 30 % Dr. Xiang Rogers DO Work Phone: [facility] 05-21-2024 17:26-0500 Body mass index (BMI) [Ratio] 28.1 kg/m2 Dr. Xiang Rogers DO Work Phone: [facility] 05-21-2024 17:26-0500 Body temperature 98.1 [degF] Dr. Xiang Rogers DO Work Phone: [facility] 05-21-2024 17:26-0500 Body weight 88.[address] Xiang Rogers DO Work Phone: [facility] 05-21-2024 17:26-0500 Diastolic blood pressure 83 mm[Hg] Dr. Xiang Rogers DO Work Phone: [facility] 05-21-2024 17:26-0500 Heart rate 102 /min Dr. Xiang Rogers DO Work Phone: [facility] 05-21-2024 17:26-0500 Respiratory rate 16 /min Dr. Xiang Rogers DO Work Phone: [facility] 05-21-2024 17:26-0500 SaO2% (BldA) [Mass fraction] 97 % Dr. Xiang Rogers DO Work Phone: [facility] 05-21-2024 17:26-0500 Systolic blood pressure 115 mm[Hg] Dr. Xiang Rogers DO Work Phone: [facility] 05-17-2024 12:50-0500 Body temperature 98 [degF] Dr. Xiang Rogers DO Work Phone: [facility] 05-17-2024 12:50-0500 Body weight 86.[address] Xiang Rogers DO Work Phone: [facility] 05-17-2024 12:50-0500 Diastolic blood pressure 70 mm[Hg] Dr. Xiang Rogers DO Work Phone: [facility] 05-17-2024 12:50-0500 Heart rate 90 /min Dr. Xiang Rogers DO Work Phone: [facility] 05-17-2024 12:50-0500 Respiratory rate 16 /min Dr. Xiang Rogers DO Work Phone: [facility] 05-17-2024 12:50-0500 SaO2% (BldA) [Mass fraction] 97 % Dr. Xiang Rogers DO Work Phone: [facility] 05-17-2024 12:50-0500 Systolic blood pressure 108 mm[Hg] Dr. Xiang Rogers DO Work Phone: [facility] 05-03-2024 10:53-0500 Body mass index (BMI) [Ratio] 27.6 kg/m2 Dr. Xiang Rogers DO Work Phone: [facility] 05-03-2024 10:53-0500 Body temperature 97.8 [degF] Dr. Xiang Rogers DO Work Phone: [facility] 05-03-2024 10:53-0500 Body weight 87.[address] Xiang Rogers DO Work Phone: [facility] 05-03-2024 10:53-0500 Diastolic blood pressure 62 mm[Hg] Dr. Xiang Rogers DO Work Phone: [facility] 05-03-2024 10:53-0500 Heart rate 93 /min Dr. Xiang Rogers DO Work Phone: [facility] 05-03-2024 10:53-0500 Respiratory rate 18 /min Dr. Xiang Rogers DO Work Phone: [facility] 05-03-2024 10:53-0500 SaO2% (BldA) [Mass fraction] 97 % Dr. Xiang Rogers DO Work Phone: [facility] 05-03-2024 10:53-0500 Systolic blood pressure 120 mm[Hg] Dr. Xiang Rogers DO Work Phone: [facility] 04-20-2024 07:15-0500 Body weight 87.[address] Xiang Rogers DO Work Phone: [facility] 04-19-2024 08:51-0500 Body mass index (BMI) [Ratio] 27.8 kg/m2 Dr. Xiang Rogers DO Work Phone: [facility] 04-08-2024 13:27-0500 Body temperature 98.2 [degF] Dr. Xiang Rogers DO Work Phone: [facility] 04-08-2024 13:27-0500 Body weight 87.[address] Xiang Rogers DO Work Phone: [facility] 04-08-2024 13:27-0500 Diastolic blood pressure 74 mm[Hg] Dr. Xiang Rogers DO Work Phone: [facility] 04-08-2024 13:27-0500 Heart rate 78 /min Dr. Xiang Rogers DO Work Phone: [facility] 04-08-2024 13:27-0500 Respiratory rate 16 /min Dr. Xiang Rogers DO Work Phone: [facility] 04-08-2024 13:27-0500 SaO2% (BldA) [Mass fraction] 97 % Dr. Xiang Rogers DO Work Phone: [facility] 04-08-2024 13:27-0500 Systolic blood pressure 127 mm[Hg] Dr. Xiang Rogers DO Work Phone: [facility] 04-01-2024 09:51-0500 Body mass index (BMI) [Ratio] 27.8 kg/m2 Dr. Xiang Rogers DO Work Phone: [facility] 04-01-2024 09:51-0500 Body weight 87.[address] Xiang Rogers DO Work Phone: [facility] 04-01-2024 09:51-0500 Diastolic blood pressure 80 mm[Hg] Dr. Xiang Rogers DO Work Phone: [facility] 04-01-2024 09:51-0500 Heart rate 76 /min Dr. Xiang Rogers DO Work Phone: [facility] 04-01-2024 09:51-0500 Respiratory rate 18 /min Dr. Xiang Rogers DO Work Phone: [facility] 04-01-2024 09:51-0500 SaO2% (BldA) [Mass fraction] 99 % Dr. Xiang Rogers DO Work Phone: [facility] 04-01-2024 09:51-0500 Systolic blood pressure 136 mm[Hg] Dr. Xiang Rogers DO Work Phone: [facility] 03-22-2024 11:03-0500 Body temperature 97.8 [degF] Dr. Xiang Rogers DO Work Phone: [facility] 03-22-2024 11:03-0500 Body weight 87.[address] Xiang Rogers DO Work Phone: [facility] 03-22-2024 11:03-0500 Diastolic blood pressure 59 mm[Hg] Dr. Xiang Rogers DO Work Phone: [facility] 03-22-2024 11:03-0500 Heart rate 90 /min Dr. Xiang Rogers DO Work Phone: [facility] 03-22-2024 11:03-0500 Respiratory rate 16 /min Dr. Xiang Rogers DO Work Phone: [facility] 03-22-2024 11:03-0500 SaO2% (BldA) [Mass fraction] 97 % Dr. Xiang Rogers DO Work Phone: [facility] 03-22-2024 11:03-0500 Systolic blood pressure 112 mm[Hg] Dr. Xiang Rogers DO Work Phone: [facility] 02-24-2024 13:07-0500 Body mass index (BMI) [Ratio] 27.9 kg/m2 Dr. Xiang Rogers DO Work Phone: [facility] 02-24-2024 13:07-0500 Body temperature 97.6 [degF] Dr. Xiang Rogers DO Work Phone: [facility] 02-24-2024 13:07-0500 Body weight 88.[address] Xiang Rogers DO Work Phone: [facility] 02-24-2024 13:07-0500 Diastolic blood pressure 76 mm[Hg] Dr. Xiang Rogers DO Work Phone: [facility] 02-24-2024 13:07-0500 Heart rate 72 /min Dr. Xiang Rogers DO Work Phone: [facility] 02-24-2024 13:07-0500 Respiratory rate 16 /min Dr. Xiang Rogers DO Work Phone: [facility] 02-24-2024 13:07-0500 SaO2% (BldA) [Mass fraction] 97 % Dr. Xiang Rogers DO Work Phone: [facility] 02-24-2024 13:07-0500 Systolic blood pressure 126 mm[Hg] Dr. Xiang Rogers DO Work Phone: [facility] 02-24-2024 11:24-0500 Body temperature 98.4 [degF] Dr. Xiang Rogers DO Work Phone: [facility] 02-24-2024 11:24-0500 Body weight 88.[address] Xiang Rogers DO Work Phone: [facility] 02-24-2024 11:24-0500 Diastolic blood pressure 61 mm[Hg] Dr. Xiang Rogers DO Work Phone: [facility] 02-24-2024 11:24-0500 Heart rate 64 /min Dr. Xiang Rogers DO Work Phone: [facility] 02-24-2024 11:24-0500 Respiratory rate 16 /min Dr. Xiang Rogers DO Work Phone: [facility] 02-24-2024 11:24-0500 SaO2% (BldA) [Mass fraction] 98 % Dr. Xiang Rogers DO Work Phone: [facility] 02-24-2024 11:24-0500 Systolic blood pressure 105 mm[Hg] Dr. Xiang Rogers DO Work Phone: [facility] 12-31-2023 09:26-0400 Body mass index (BMI) [Ratio] 25.95 kg/m2 Gab Culver APRN.COMPUTER HARDWARE DEVELOPER Work Phone: [facility] 12-31-2023 09:26-0400 Body temperature 97.5 [degF] Gab Culver APRN.COMPUTER HARDWARE DEVELOPER Work Phone: [facility] 12-31-2023 09:26-0400 Body weight 84.4 kg [facility] MOUSE [employer]ER.COMPUTER HARDWARE DEVELOPER Work Phone: [facility] 12-31-2023 09:26-0400 Diastolic blood pressure 75 mm[Hg] [facility] MOUSE [employer]ER.COMPUTER HARDWARE DEVELOPER Work Phone: [facility] 12-31-2023 09:26-0400 Heart rate 78 /min [facility] MOUSE [employer].COMPUTER HARDWARE DEVELOPER Work Phone: [facility] 12-31-2023 09:26-0400 Respiratory rate 18 /min [facility] 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 Xiang Rogesr Work Phone: [facility] 06-02-2023 12:53-0500 Body mass index (BMI) [Ratio] 26.9 kg/m2 Dr. Xiang Rogers Work Phone: [facility] 06-02-2023 12:53-0500 Body temperature 97.4 [degF] Dr. Xiang Rogers Work Phone: [facility] 06-02-2023 12:53-0500 Body weight 87.[address] Xiang Rogers Work Phone: [facility] 06-02-2023 12:53-0500 Diastolic blood pressure 66 mm[Hg] Dr. Xiang Rogers Work Phone: [facility] 06-02-2023 12:53-0500 Heart rate 60 /min Dr. Xiang Rogers Work Phone: [facility] 06-02-2023 12:53-0500 Respiratory rate 18 /min Dr. Xiang Rogers Work Phone: [facility] 06-02-2023 12:53-0500 SaO2% (BldA) [Mass fraction] 96 % Dr. Xiang Rogers Work Phone: [facility] 06-02-2023 12:53-0500 Systolic blood pressure 125 mm[Hg] Dr. Xiang Rogers Work Phone: [facility] 05-24-2023 02:38-0500 Body temperature 97.7 [degF] Dr. Xiang Rogers Work Phone: [facility] 05-24-2023 02:38-0500 Diastolic blood pressure 61 mm[Hg] Dr. Xiang Rogers Work Phone: [facility] 05-24-2023 02:38-0500 Heart rate 71 /min Dr. Xiang Rogers Work Phone: [facility] 05-24-2023 02:38-0500 Respiratory rate 18 /min Dr. Xiang Rogers Work Phone: [facility] 05-24-2023 02:38-0500 SaO2% (BldA) [Mass fraction] 96 % Dr. Xiang Rogers Work Phone: [facility] 05-24-2023 02:38-0500 Systolic blood pressure 99 mm[Hg] Dr. Xiang Rogers Work Phone: [facility] 05-24-2023 00:23-0500 Body height 180.[address] Xiang Rogers Work Phone: [facility] 05-24-2023 00:23-0500 Body mass index (BMI) [Ratio] 25.8 kg/m2 Dr. Xiang Rogers Work Phone: [facility] 05-24-2023 00:23-0500 Body weight [address] Xiang Rogers Work Phone: [facility] 04-25-2023 17:36-0500 Body temperature 95 [degF] Dr. Xiang Rogers Work Phone: [facility] 04-25-2023 17:36-0500 Diastolic blood pressure 73 mm[Hg] Dr. Xiang Rogers Work Phone: [facility] 04-25-2023 17:36-0500 Heart rate 67 /min Dr. Xiang Rogers Work Phone: [facility] 04-25-2023 17:36-0500 Respiratory rate 18 /min Dr. Xiang Rogers Work Phone: [facility] 04-25-2023 17:36-0500 Systolic blood pressure 139 mm[Hg] Dr. Xiang Rogers Work Phone: [facility] 04-25-2023 15:25-0500 Body height 180.[address] Xiang Rogers Work Phone: [facility] 04-25-2023 15:25-0500 Body mass index (BMI) [Ratio] 26.7 kg/m2 Dr. Xiang Rogers Work Phone: [facility] 04-25-2023 15:25-0500 Body weight 87.[address] Xiang Rogers Work Phone: [facility] 04-25-2023 15:25-0500 SaO2% (BldA) [Mass fraction] 96 % Dr. Xiang Rogers Work Phone: [facility] 04-15-2023 09:24-0500 Body height 180.[address] Xiang Rogers Work Phone: [facility] 04-15-2023 09:24-0500 Body mass index (BMI) [Ratio] 26.9 kg/m2 Dr. Xiang Rogers Work Phone: [facility] 04-15-2023 09:24-0500 Body temperature 97.2 [degF] Dr. Xiang Rogers Work Phone: [facility] 04-15-2023 09:24-0500 Body weight 87.[address] Xiang Rogers Work Phone: [facility] 04-15-2023 09:24-0500 Diastolic blood pressure 70 mm[Hg] Dr. Xiang Rogers Work Phone: [facility] 04-15-2023 09:24-0500 Heart rate 81 /min Dr. Xiang Rogers Work Phone: [facility] 04-15-2023 09:24-0500 Respiratory rate 16 /min Dr. Xiang Rogers Work Phone: [facility] 04-15-2023 09:24-0500 SaO2% (BldA) [Mass fraction] 98 % Dr. Xiang Rogers Work Phone: [facility] 04-15-2023 09:24-0500 Systolic blood pressure 128 mm[Hg] Dr. Xiang Rogers Work Phone: [facility] 01-26-2023 15:28-0400 Body mass index (BMI) [Ratio] 27.3 kg/m2 Dr. Xiang Rogers Work Phone: [facility] 01-26-2023 15:28-0400 Body weight 88.[address] Xiang Rogers Work Phone: [facility] 01-26-2023 15:28-0400 Diastolic blood pressure 56 mm[Hg] Dr. Xiang Rogers Work Phone: [facility] 01-26-2023 15:28-0400 Heart rate 70 /min Dr. Xiang Rogers Work Phone: [facility] 01-26-2023 15:28-0400 Respiratory rate 18 /min Dr. Xiang Rogers Work Phone: [facility] 01-26-2023 15:28-0400 Systolic blood pressure 118 mm[Hg] Dr. Xiang Rogers Work Phone: [facility] 01-13-2023 09:27-0400 Body mass index (BMI) [Ratio] 27 kg/m2 Dr. Xiang Rogers Work Phone: [facility] 01-13-2023 09:27-0400 Body temperature 98.4 [degF] Dr. Xiang Rogers Work Phone: [facility] 01-13-2023 09:27-0400 Body weight 87.[address] Xiang Rogers Work Phone: [facility] 01-13-2023 09:27-0400 Diastolic blood pressure 70 mm[Hg] Dr. Xiang Rogers Work Phone: [facility] 01-13-2023 09:27-0400 Heart rate 61 /min Dr. Xiang Rogers Work Phone: [facility] 01-13-2023 09:27-0400 Respiratory rate 16 /min Dr. Xiang Rogers Work Phone: [facility] 01-13-2023 09:27-0400 SaO2% (BldA) [Mass fraction] 97 % Dr. Xiang Rogers Work Phone: [facility] 01-13-2023 09:27-0400 Systolic blood pressure 120 mm[Hg] Dr. Xiang Rogers Work Phone: [facility] 05-21-2022 01:34-0500 Body height 180.[address] Xiang Rogers Work Phone: [facility] 05-21-2022 01:34-0500 Body mass index (BMI) [Ratio] 29.1 kg/m2 Dr. Xiang Rogers Work Phone: [facility] 05-21-2022 01:34-0500 Body temperature 98.8 [degF] Dr. Xiang Rogers Work Phone: [facility] 05-21-2022 01:34-0500 Body weight 94.[address] Xiang Rogers Work Phone: [facility] 05-21-2022 01:34-0500 Diastolic blood pressure 79 mm[Hg] Dr. Xiang Rogers Work Phone: [facility] 05-21-2022 01:34-0500 Heart rate 74 /min Dr. Xiang Rogers Work Phone: [facility] 05-21-2022 01:34-0500 Respiratory rate 17 /min Dr. Xiang Rogers Work Phone: [facility] 05-21-2022 01:34-0500 SaO2% (BldA) [Mass fraction] 98 % Dr. Xiang Rogers Work Phone: [facility] 05-21-2022 01:34-0500 Systolic blood pressure 143 mm[Hg] Dr. Xiang Rogers Work Phone: [facility] 05-19-2022 13:35-0500 Body mass index (BMI) [Ratio] 28.5 kg/m2 Dr. Xiang Rogers Work Phone: [facility] 05-19-2022 13:35-0500 Body weight 92.[address] Xiang Rogers Work Phone: [facility] 05-19-2022 13:35-0500 Diastolic blood pressure 69 mm[Hg] Dr. Xiang Rogers Work Phone: [facility] 05-19-2022 13:35-0500 Heart rate 62 /min Dr. Xiang Rogers Work Phone: [facility] 05-19-2022 13:35-0500 Respiratory rate 18 /min Dr. Xiang Rogers Work Phone: [facility] 05-19-2022 13:35-0500 SaO2% (BldA) [Mass fraction] 96 % Dr. Xiang Rogers Work Phone: [facility] 05-19-2022 13:35-0500 Systolic blood pressure 128 mm[Hg] Dr. Xiang Rogers Work Phone: [facility] 04-24-2022 13:27-0500 Body mass index (BMI) [Ratio] 28.3 kg/m2 Dr. Xiang Rogers Work Phone: [facility] 04-24-2022 13:27-0500 Body temperature 98.3 [degF] Dr. Xiang Rogers Work Phone: [facility] 04-24-2022 13:27-0500 Body weight 92.[address] Xiang Rogers Work Phone: [facility] 04-24-2022 13:27-0500 Diastolic blood pressure 62 mm[Hg] Dr. Xiang Rogers Work Phone: [facility] 04-24-2022 13:27-0500 Heart rate 61 /min Dr. Xiang Rogers Work Phone: [facility] 04-24-2022 13:27-0500 Respiratory rate 14 /min Dr. Xiang Rogers Work Phone: [facility] 04-24-2022 13:27-0500 SaO2% (BldA) [Mass fraction] 97 % Dr. Xiang Rogers Work Phone: [facility] 04-24-2022 13:27-0500 Systolic blood pressure 104 mm[Hg] Dr. Xiang Rogers Work Phone: [facility] 04-19-2022 14:53-0500 SaO2% (BldA) [Mass fraction] 95 % Dr. Xiang Rogers Work Phone: [facility] 04-19-2022 09:30-0500 Body temperature 97.9 [degF] Dr. Xiang Rogers Work Phone: [facility] 04-19-2022 09:30-0500 Diastolic blood pressure 77 mm[Hg] Dr. Xiang Rogers Work Phone: [facility] 04-19-2022 09:30-0500 Heart rate 79 /min Dr. Xiang Rogers Work Phone: [facility] 04-19-2022 09:30-0500 Respiratory rate 20 /min Dr. Xiang Rogers Work Phone: [facility] 04-19-2022 09:30-0500 Systolic blood pressure 110 mm[Hg] Dr. Xiang Rogers Work Phone: [facility] 04-18-2022 10:11-0500 Body weight 93.[address] Xiang Rogers Work Phone: [facility] 04-18-2022 05:51-0500 Body temperature 98 [degF] Dr. Xiang Rogers Work Phone: [facility] Work Phone: 04-18-2022 05:51-0500 Diastolic blood pressure 76 mm[Hg] Dr. Xiang Rogers Work Phone: [facility] Work Phone: 04-18-2022 05:51-0500 Heart rate 80 /min Dr. Xiang Rogers Work Phone: [facility] Work Phone: 04-18-2022 05:51-0500 Respiratory rate 18 /min Dr. Xiang Rogers Work Phone: [facility] Work Phone: 04-18-2022 05:51-0500 SaO2% (BldA) [Mass fraction] 92 % Dr. Xiang Rogers Work Phone: [facility] Work Phone: 04-18-2022 05:51-0500 Systolic blood pressure 123 mm[Hg] Dr. Xiang Rogers Work Phone: [facility] Work Phone: 04-18-2022 01:36-0500 Body height 180.[address] Xiang Rogers Work Phone: [facility] Work Phone: 04-18-2022 01:36-0500 Body mass index (BMI) [Ratio] 28.6 kg/m2 Dr. Xiang Rogers Work Phone: [facility] 04-18-2022 01:36-0500 Body weight 93.[address] Xiang Rogers Work Phone: [facility] Work Phone: 04-09-2022 14:00-0500 Body mass index (BMI) [Ratio] 27.4 kg/m2 Dr. Xiang Rogers Work Phone: [facility] 04-09-2022 14:00-0500 Body temperature 98.4 [degF] Dr. Xiang Rogers Work Phone: [facility] 04-09-2022 14:00-0500 Body weight 89.[address] Xiang Rogers Work Phone: [facility] 04-09-2022 14:00-0500 Diastolic blood pressure 78 mm[Hg] Dr. Xiang Rogers Work Phone: [facility] 04-09-2022 14:00-0500 Heart rate 65 /min Dr. Xiang Rogers Work Phone: [facility] 04-09-2022 14:00-0500 Respiratory rate 16 /min Dr. Xiang Rogers Work Phone: [facility] 04-09-2022 14:00-0500 SaO2% (BldA) [Mass fraction] 99 % Dr. Xiang Rogers Work Phone: [facility] 04-09-2022 14:00-0500 Systolic blood pressure 132 mm[Hg] Dr. Xiang Rogers Work Phone: [facility] 03-11-2022 12:30-0500 Body height 180.[address] Xiang Rogers Work Phone: [facility] Work Phone: 03-11-2022 12:30-0500 Body mass index (BMI) [Ratio] 26.9 kg/m2 Dr. Xiang Rogers Work Phone: [facility] 03-11-2022 12:30-0500 Body temperature 98 [degF] Dr. Xiang Rogers Work Phone: [facility] 03-11-2022 12:30-0500 Body weight 87.[address] Xiang Rogers Work Phone: [facility] 03-11-2022 12:30-0500 Diastolic blood pressure 76 mm[Hg] Dr. Xiang Rogers Work Phone: [facility] 03-11-2022 12:30-0500 Heart rate 87 /min Dr. Xiang Rogers Work Phone: [facility] 03-11-2022 12:30-0500 Respiratory rate 16 /min Dr. Xiang Rogers Work Phone: [facility] 03-11-2022 12:30-0500 SaO2% (BldA) [Mass fraction] 97 % Dr. Xiang Rogers Work Phone: [facility] 03-11-2022 12:30-0500 Systolic blood pressure 153 mm[Hg] Dr. Xiang Rogers Work Phone: [facility] 03-01-2022 19:47-0500 Body height 180.[address] Xiang Rogers Work Phone: [facility] Work Phone: 03-01-2022 19:47-0500 Body mass index (BMI) [Ratio] 27.9 kg/m2 Dr. Xiang Rogers Work Phone: [facility] 03-01-2022 19:47-0500 Body temperature 96.8 [degF] Dr. Xiang Rogers Work Phone: [facility] 03-01-2022 19:47-0500 Body weight [address] Xiang Rogers Work Phone: [facility] 03-01-2022 19:47-0500 Diastolic blood pressure 75 mm[Hg] Dr. Xiang Rogers Work Phone: [facility] 03-01-2022 19:47-0500 Heart rate 103 /min Dr. Xiang Rogers Work Phone: [facility] 03-01-2022 19:47-0500 Respiratory rate 16 /min Dr. Xiang Rogers Work Phone: [facility] 03-01-2022 19:47-0500 SaO2% (BldA) [Mass fraction] 94 % Dr. Xiang Rogers Work Phone: [facility] 03-01-2022 19:47-0500 Systolic blood pressure 141 mm[Hg] Dr. Xiang Rogers Work Phone: [facility] 02-04-2022 08:30-0400 Body temperature 98.01 [degF] Yamilka Parekh MD Work Phone: [facility] 02-04-2022 08:30-0400 Body weight 87.18 kg Yamilka Parekh MD Work Phone: [facility] 02-04-2022 08:30-0400 Diastolic blood pressure 74 mm[Hg] Yamilka Parekh MD Work Phone: [facility] 02-04-2022 08:30-0400 Heart rate 80 /min Yamilka Parekh MD Work Phone: [facility] 02-04-2022 08:30-0400 SaO2% (BldA) [Mass fraction] 98 % Yamilka Parekh MD Work Phone: [facility] 02-04-2022 08:30-0400 Systolic blood pressure 128 mm[Hg] Yamilka Parekh MD Work Phone: [facility] 01-28-2022 10:40-0400 Body height 180.3 cm Yamilka Parekh MD Work Phone: [facility] 01-28-2022 10:40-0400 Body temperature 97.3 [degF] Yamilka Parekh MD Work Phone: [facility] 01-28-2022 10:40-0400 Body weight 87.36 kg Yamilka Parekh MD Work Phone: [facility] 01-28-2022 10:40-0400 Diastolic blood pressure 70 mm[Hg] Yamilka Parekh MD Work Phone: [facility] 01-28-2022 10:40-0400 Heart rate 79 /min Yamilka Parekh MD Work Phone: [facility] 01-28-2022 10:40-0400 SaO2% (BldA) [Mass fraction] 98 % Yamilka Parekh MD Work Phone: [facility] 01-28-2022 10:40-0400 Systolic blood pressure 124 mm[Hg] Yamilka Parekh MD Work Phone: [facility] 01-06-2022 09:25-0400 Body height 180.3 cm Yamilka Parekh MD Work Phone: [facility] 01-06-2022 09:25-0400 Body temperature 97.7 [degF] Yamilka Parekh MD Work Phone: [facility] 01-06-2022 09:25-0400 Body weight 88.27 kg Yamilka Parekh MD Work Phone: [facility] 01-06-2022 09:25-0400 Diastolic blood pressure 77 mm[Hg] Yamilka Parekh MD Work Phone: [facility] 01-06-2022 09:25-0400 Heart rate 84 /min Yamilka Parekh MD Work Phone: [facility] 01-06-2022 09:25-0400 SaO2% (BldA) [Mass fraction] 99 % Yamilka Parekh MD Work Phone: [facility] 01-06-2022 09:25-0400 Systolic blood pressure 160 mm[Hg] Yamilka Parekh MD Work Phone: [facility] 01-01-2022 14:08-0400 Body height 180.[address] Xiang Rogers Work Phone: [facility] Work Phone: 01-01-2022 14:08-0400 Body mass index (BMI) [Ratio] 27.3 kg/m2 Dr. Xiang Rogers Work Phone: [facility] Work Phone: 01-01-2022 14:08-0400 Body temperature 98.5 [degF] Dr. Xiang Rogers Work Phone: [facility] Work Phone: 01-01-2022 14:08-0400 Body weight 89.[address] Xiang Rogers Work Phone: [facility] Work Phone: 01-01-2022 14:08-0400 Diastolic blood pressure 64 mm[Hg] Dr. Xiang Rogers Work Phone: [facility] Work Phone: 01-01-2022 14:08-0400 Heart rate 64 /min Dr. Xiang Rogers Work Phone: [facility] Work Phone: 01-01-2022 14:08-0400 Respiratory rate 18 /min Dr. Xiang Rogers Work Phone: [facility] Work Phone: 01-01-2022 14:08-0400 SaO2% (BldA) [Mass fraction] 95 % Dr. Xiang Rogers Work Phone: [facility] Work Phone: 01-01-2022 14:08-0400 Systolic blood pressure 122 mm[Hg] Dr. Xiang Rogers Work Phone: [facility] Work Phone: 12-09-2021 01:16-0400 Diastolic blood pressure 71 mm[Hg] Dr. Xiang Rogers Work Phone: [facility] Work Phone: 12-09-2021 01:16-0400 Heart rate 74 /min Dr. Xiang Rogers Work Phone: [facility] Work Phone: 12-09-2021 01:16-0400 Respiratory rate 19 /min Dr. Xiang Rogers Work Phone: [facility] Work Phone: 12-09-2021 01:16-0400 SaO2% (BldA) [Mass fraction] 95 % Dr. Xiang Rogers Work Phone: [facility] Work Phone: 12-09-2021 01:16-0400 Systolic blood pressure 144 mm[Hg] Dr. Xiang Rogers Work Phone: [facility] Work Phone: 12-08-2021 23:18-0400 Body height 180.[address] Xiang Rogers Work Phone: [facility] Work Phone: 12-08-2021 23:18-0400 Body mass index (BMI) [Ratio] 26.4 kg/m2 Dr. Xiang Rogers Work Phone: [facility] Work Phone: 12-08-2021 23:18-0400 Body temperature 97.9 [degF] Dr. Xiang Rogers Work Phone: [facility] Work Phone: 12-08-2021 23:18-0400 Body weight 86.[address] Xiang Rogers Work Phone: [facility] Work Phone: 09-18-2021 14:32-0400 Body mass index (BMI) [Ratio] 26.7 kg/m2 Dr. Xiang Rogers Work Phone: [facility] Work Phone: 09-18-2021 14:32-0400 Body temperature 97.2 [degF] Dr. Xiang Rogers Work Phone: [facility] Work Phone: 09-18-2021 14:32-0400 Body weight 87.[address] Xiang Rogers Work Phone: [facility] Work Phone: 09-18-2021 14:32-0400 Diastolic blood pressure 70 mm[Hg] Dr. Xiang Rogers Work Phone: [facility] Work Phone: 09-18-2021 14:32-0400 Heart rate 86 /min Dr. Xiang Rogers Work Phone: [facility] Work Phone: 09-18-2021 14:32-0400 Respiratory rate 16 /min Dr. Xiang Rogers Work Phone: [facility] Work Phone: 09-18-2021 14:32-0400 SaO2% (BldA) [Mass fraction] 97 % Dr. Xiang Rogers Work Phone: [facility] Work Phone: 09-18-2021 14:32-0400 Systolic blood pressure 116 mm[Hg] Dr. Xiang Rogers Work Phone: [facility] Work Phone: 07-19-2021 00:14-0400 Heart rate 78 /min Dr. Xiang Rogers Work Phone: [facility] Work Phone: 07-19-2021 00:14-0400 Respiratory rate 18 /min Dr. Xiang Rogers Work Phone: [facility] Work Phone: 07-19-2021 00:14-0400 SaO2% (BldA) [Mass fraction] 95 % Dr. Xiang Rogers Work Phone: [facility] Work Phone: 07-18-2021 20:48-0400 Body height 180.[address] Xiang Rogers Work Phone: [facility] Work Phone: 07-18-2021 20:48-0400 Body mass index (BMI) [Ratio] 26.9 kg/m2 Dr. Xiang Rogers Work Phone: [facility] Work Phone: 07-18-2021 20:48-0400 Body temperature 98.8 [degF] Dr. Xiang Rogers Work Phone: [facility] Work Phone: 07-18-2021 20:48-0400 Body weight 87.[address] Xiang Rogers Work Phone: [facility] Work Phone: 07-18-2021 20:48-0400 Diastolic blood pressure 83 mm[Hg] Dr. Xiang Rogers Work Phone: [facility] Work Phone: 07-18-2021 20:48-0400 Systolic blood pressure 151 mm[Hg] Dr. Xiang Rogers Work Phone: [facility] Work Phone: 07-18-2021 12:52-0400 Body temperature 98.01 [degF] Gab Pendlebury MOUSE BREEDER.COMPUTER HARDWARE DEVELOPER Work Phone: [facility] 07-18-2021 12:52-0400 Body weight 88 kg Gab Pendlebury MOUSE BREEDER.COMPUTER HARDWARE DEVELOPER Work Phone: [facility] 07-18-2021 12:52-0400 Diastolic blood pressure 74 mm[Hg] Gab Pendlebury MOUSE BREEDER.COMPUTER HARDWARE DEVELOPER Work Phone: [facility] 07-18-2021 12:52-0400 Heart rate 100 /min Gab Pendlebury MOUSE BREEDER.COMPUTER HARDWARE DEVELOPER Work Phone: [facility] 07-18-2021 12:52-0400 Respiratory rate 18 /min Gab Pendlebury MOUSE BREEDER.COMPUTER HARDWARE DEVELOPER Work Phone: [facility] 07-18-2021 12:52-0400 SaO2% (BldA) [Mass fraction] 96 % Gab Pendlebury MOUSE BREEDER.COMPUTER HARDWARE DEVELOPER Work Phone: [facility] 07-18-2021 12:52-0400 Systolic blood pressure 122 mm[Hg] Gab Pendlebury MOUSE BREEDER.COMPUTER HARDWARE DEVELOPER Work Phone: [facility] 06-13-2021 13:57-0500 Body temperature 97.8 [degF] Dr. Xiang Rogers Work Phone: [facility] Work Phone: 06-13-2021 13:57-0500 Body weight 88.[address] Xiang Rogers Work Phone: [facility] Work Phone: 06-13-2021 13:57-0500 Diastolic blood pressure 74 mm[Hg] Dr. Xiang Rogers Work Phone: [facility] Work Phone: 06-13-2021 13:57-0500 Heart rate 68 /min Dr. Xiang Rogers Work Phone: [facility] Work Phone: 06-13-2021 13:57-0500 Respiratory rate 16 /min Dr. Xiang Rogers Work Phone: [facility] Work Phone: 06-13-2021 13:57-0500 SaO2% (BldA) [Mass fraction] 98 % Dr. Xiang Rogers Work Phone: [facility] Work Phone: 06-13-2021 13:57-0500 Systolic blood pressure 130 mm[Hg] Dr. Xiang Rogers Work Phone: [facility] Work Phone: Encounters Encounter Date Encounter Type Care Provider Facility Start: 11-10-2024 Evaluation and manag ement of inpatient Dr. Xiang Rogers DO Work Phone: -Pro[facility] Care Unit Start: 11-10-2024 Dr. Corazon Diaz MD - [facility] Work Phone: Start: 11-10-2024 End: 11-10-[address] Xiang Rogers DO Work Phone: -[facility] Start: 11-10-2024 End: 11-10-2024 Leah GARSIA -[facility] Work Phone: Start: 11-04-2024 End: 11-04-2024 Dr. Xiang Will DO -[facility] Work Phone: Start: 11-04-2024 End: 11-04-[address] Xiang Rogers DO Work Phone: -[facility] Start: 11-03-2024 End: 11-03-2024 Magaly DEVINE -[facility] Work Phone: Start: 11-03-2024 End: 11-03-[address] Xiang Rogers DO Work Phone: -[facility] Start: 10-26-2024 End: 10-27-2024 Dr. Xiang Rogers [...] Start: 10-11-2024 ambulatory Ronit Galvez NP Facili ty:[facility] Start: 09-27-2024 End: 09-27-2024 Magaly DEVINE -[facility] Work Phone: Start: 09-27-2024 End: 09-27-[address] Xiang Rogers DO Work Phone: [facility] Work Phone: Start: 09-21-2024 Dr. Donna Wolff MD -[facility] Work Phone: Start: 09-20-2024 Dr. Seth morales DO -[facility] Work Phone: Start: 09-19-2024 ambulatory Xiang Rogers Facilit y:[facility] Start: 09-19-2024 Dr. Seth morales DO -[facility] Work Phone: Start: 09-18-2024 End: 09-21-[facility]24 [facility] Start: 09-18-2024 End: 09-21-2024 Evaluation and management of inpatient Dr. Xiang Rogers DO Work Phone: [facility] Work Phone: Start: 09-18-2024 End: 09-21-2024 Dr. Clinton Soares DO -Progressive Care Unit Work Phone: Start: 09-08-2024 End: 09-08-[address] Xiang Rogers DO Work Phone: [facility] Work Phone: Start: 09-08-2024 End: 09-08-2024 Dr. Saúl Flowers MD -[facility] Start: 09-08-2024 End: 09-08-2024 ambulatory Lubna Manley Facility:[facility] Start: 08-02-2024 End: 08-02-2024 Dr. Xiang Will DO -[facility] Work Phone: Start: 08-02-2024 End: 08-02-2024 ambulatory Xiang Rogers [facility] Start: 07-29-2024 End: 07-29-2024 Dr. Lawson [facility] Work [facility] Start: 07-29-2024 End: 07-29-2024 Emergency department patient visit Lawson Castellon Facility:[facility] Start: 07-14-2024 End: 07-14-2024 Lubna DEVINE -[facility] Work Phone: Start: 07-14-2024 End: 07-14-2024 ambulatory Xiang Rogers Facility:[facility] Start: 07-12-2024 End: 07-12-2024 Ronit PÉREZC -[facility] Work Phone: Start: 07-12-2024 End: 07-12-2024 ambulatory Xiang Rogers Facility:[facility] Start: 06-20-2024 ambulatory Calos Quinn Facility:[facility] Start: 06-20-2024 Dr. Seth morales DO -[facility] Work Phone: Start: 06-20-2024 Dr. Calos Quinn MD -[facility] Start: 06-19-2024 Dr. Alexandru Mckeon MD [facility] Start: 06-19-2024 Dr. Donna Wolff MD -[facility] Work Phone: Start: 06-18-2024 ambulatory Alexandru Mckeon Fa cility:[facility] Start: 06-18-2024 Dr. Alexandru Mckeon MD -[facility] Start: 06-18-2024 ambulatory Steve Esteban Facili ty:[facility] Start: 06-18-2024 End: 06-20-2024 Evaluation and management of inpatient Steve Esteban Facility:[facility] Start: 06-18-2024 End: 06-20-2024 Dr. Seth Carrington DO -Progressive Care Unit Work Phone: Start: 06-15-2024 ambulatory Magaly DEIVNE Facility:[facility] Start: 06-15-2024 Non-patient / Non-visit Garret Saldana -[facility] Start: 06-15-2024 Magaly DEVINE -[facility] Start: 06-13-2024 Non-patient / Non-visit Dr. Saúl talbert MD -[facility] Start: 06-13-2024 End: 06-13-[address] Xiang Rogers DO Work Phone: [facility] Work Phone: Start: 06-13-2024 End: 06-13-2024 Patient encounter procedure Lubna DEVINE -Cardiovascular Services Work Phone: Start: 06-13-2024 End: 06-13-2024 Dr. Saúl Flowers MD -[facility] Start: 06-13-2024 End: 06-13-2024 ambulatory Lubna Manley Facility:[facility] Start: 06-07-2024 ambulatory Kimberli Mora REFRIGERATION SPECIALIST Facil ity:[facility] Start: 05-21-2024 End: 05-21-2024 Dr. Saúl Aguilar DO -Emergency Departme nt Work Phone: Start: 05-21-2024 End: 05-21-2024 Emergency department patient visit Dr. Saúl Aguilar DO -Emergency Department Work Phone: Start: 05-17-2024 End: 05-17-2024 Patient encounter procedure Lubna DEVINE -[facility] Work Phone: Start: 05-17-2024 End: 05-17-2024 Lubna DEVINE -[facility] Work Phone: Start: 05-17-2024 End: 05-17-2024 ambulatory Xiang Rogers Facility:[facility] Start: 05-09-2024 ambulatory Calos Quinn Facility:[facility] Start: 05-09-2024 Non-patient / Non-visit Dr. Ren [facility] Start: 05-09-2024 End: 05-09-2024 Patient encounter procedure Magaly DEVINE -Cardi[facility] Services Work Phone: Start: 05-09-2024 End: 05-09-2024 ambulatory Magaly DEVINE Facility:[facility] Start: 05-03-2024 End: 05-03-[address] Xiang Will DO -[facility] Work Phone: Start: 05-03-2024 End: 01-28-2025 ambulatory Xiang Rogers Facility:[facility] Start: 04-20-2024 ambulatory Saúl Flowers Facility:[facility] Start: 04-20-2024 Non-patient / Non-visit Dr. Saúl talbert MD -[facility] Start: 04-20-2024 End: 04-20-2024 Admission to same day surgery center Dr. Saúl Flowers MD -Buildings And Grounds Coordinator/Special Procedures Work Phone: Start: 04-20-2024 End: 04-20-2024 ambulatory [facility] Facility:[facility] Start: 04-08-2024 End: 04-08-2024 Patient encounter procedure Lubna Manley [facility] Work Phone: Start: 04-08-2024 End: 04-08-2024 ambulatory [facility] Facility:[facility] Start: 04-01-2024 End: 04-01-2024 Patient encounter procedure Magaly DEVINE -[facility] Work Phone: Start: 04-01-2024 End: 04-01-2024 ambulatory Xiang Rogers Facility:[facility] Start: 03-29-2024 End: 03-29-2024 Patient encounter procedure Lubna DEVINE -[facility] Work Phone: Start: 03-29-2024 End: 03-29-2024 ambulatory Lubna Manley Facility:[facility] Start: 03-22-2024 End: 03-22-2024 Patient encounter procedure Lubna DEVINE [facility] Work Phone: Start: 03-22-2024 End: 03-22-2024 ambulatory Xiang Rogers Facility:[facility] Start: 03-09-2024 ambulatory Jose Small Facili ty:[facility] Start: 03-09-2024 Non-patient / Non-visit Dr. Saúl talbert MD -[facility] Start: 03-09-2024 End: 03-09-2024 Patient encounter procedure Jose Small DPM -Cardiovascular Services Work Phone: Start: 03-09-2024 End: 03-09-2024 ambulatory Jose Small Facility:[facility] Start: 02-24-2024 End: 02-24-[address] Xiang Will DO -[facility] Work Phone: Start: 02-24-2024 End: 02-24-2024 ambulatory Xiang Rogers Facility:[facility] Start: 02-24-2024 End: 02-24-2024 Patient encounter procedure Lubna DEVINE -[facility] Work Phone: Start: 02-24-2024 End: 02-24-2024 ambulatory Xiang Rogers Facility:[facility] Start: 02-23-2024 End: 02-23-2024 ambulatory Ronit Galvez NP Facility:[facility] Start: 01-27-2024 ambulatory Xiang Rogers Facilit y:[facility] Start: 01-07-2024 End: 01-07-2024 ambulatory Xiang Rogers Facility:[facility] Start: 12-31-2023 End: 12-31-2023 Office outpatient visit 25 minutes Gab Culver APRN.COMPUTER HARDWARE DEVELOPER Work Phone: [facility] Comment on above: Sinobronchitis (Prim jagjit Dx) Start: 11-13-2023 ambulatory Xiang Rogers Facilit y:[facility] Start: 11-13-2023 End: 11-13-2023 ambulatory Xiang Rogers Facility:[facility] Start: 06-02-2023 End: 06-02-[address] Xiang Rogers Work Phone: [facility] Work Phone: Start: 06-02-2023 End: 06-02-[address] Xiang Rogers Work Phone: [facility] Work Phone: Start: 05-24-2023 End: 05-24-2023 Emergency department patient visit Dr. Xiang Rogers Work Phone: [facility]-Emergency Department Work Phone: Start: 04-25-2023 End: 04-25-2023 Emergency department patient visit Dr. Xiang Rogers Work Phone: [facility] Work Phone: Start: 04-15-2023 End: 04-15-[address] Xiang Rogers Work Phone: [facility] Work Phone: Start: 04-15-2023 End: 04-15-[address] Xiang Rogers Work Phone: [facility] Work Phone: Start: 01-26-2023 End: 01-26-[address] Xiang Rogers Work Phone: [facility] Work Phone: Start: 01-13-2023 End: 01-13-[address] Xiang Rogers Work Phone: [facility] Work Phone: Start: 06-02-2022 End: 06-02-[address] Xiang Rogers Work Phone: [facility] Work Phone: Start: 06-02-2022 End: 06-02-[address] Xiang Rogers Work Phone: [facility]-Laboratory Start: 05-23-2022 Non-patient / Non-visit Dr. Velazquez Work Phone: [facility] Start: 05-21-2022 End: 05-21-2022 Emergency department patient visit Dr. Xiang Rogers Work Phone: [facility]-Emergency Department Start: 05-19-2022 End: 05-19-[address] Xiang Rogers Work Phone: [facility] Start: 04-24-2022 End: 04-24-[address] Xiang Rogers Work Phone: [facility] Start: 04-21-2022 Non-patient / Non-visit Dr. Velazquez Work Phone: [facility] Start: 04-19-2022 Non-patient / Non-visit Dr. Velazquez Work Phone: [facility] Start: 04-19-2022 Non-patient / Non-visit Dr. Velazquez Work Phone: [facility] Start: 04-18-2022 Non-patient / Non-visit Dr. Velazquez Work Phone: [facility] Start: 04-18-2022 End: 04-19-2022 Evaluation and management of inpatient Dr. Xiang Rogers Work Phone: [facility]-Intensive Care Unit Start: 04-09-2022 End: 04-09-[address] Xiang Rogers Work Phone: [facility] Start: 03-11-2022 End: 03-11-[address] Xiang Rogers Work Phone: [facility] Work Phone: Start: 03-11-2022 End: 03-11-[address] Xiang Rogers Work Phone: [facility] Start: 03-01-2022 End: 03-01-2022 Emergency department patient visit Dr. Xiang Rogers Work Phone: [facility]-Emergency Department Start: 02-04-2022 End: 02-04-2022 ambulatory YAMILKA PAREKH Facility:[facility] Start: 02-04-2022 End: 02-04-2022 Patient encounter procedure Yamilka Parekh MD Work Phone: General Surgery Comment on above: Recurrent left ingui nal hernia (Primary Dx) Start: 01-28-2022 End: 01-28-2022 ambulatory YAMILKA PAREKH Facility:[facility] Start: 01-28-2022 End: 01-28-2022 Patient encounter procedure Yamilka Parekh MD Work Phone: General Surgery Comment on above: Left groin pain (Ruchi frantz Dx) Start: 01-28-2022 End: 01-28-2022 Subsequent hospital visit by physician [facility] (I-Stat) Work Phone: Cat Scan Comment on above: Left groin pain [R10 .32] Start: 01-08-2022 Non-patient / Non-visit Dr. Velazquez Work Phone: [facility] Start: 01-06-2022 End: 01-06-2022 ambulatory YAMILKA PAREKH Facility:[facility] Start: 01-06-2022 End: 01-06-2022 Patient encounter procedure Yamilka Parekh MD Work Phone: General Surgery Comment on above: Left groin pain (Ruchi frantz Dx) Start: 01-01-2022 End: 01-01-[address] Xiang Rogers Work Phone: [facility] Work Phone: Start: 01-01-2022 End: 01-01-[address] Xiang Rogers Work Phone: [facility] Start: 12-08-2021 End: 12-09-2021 Emergency department patient visit Dr. Xiang Rogers Work Phone: [facility]-Emergency Department Start: 09-18-2021 End: 09-18-[address] Xiang Rogers Work Phone: [facility] Start: 07-18-2021 End: 07-19-2021 Emergency department patient visit Dr. Xiang Rogers Work Phone: [facility]Emergency [facility] Start: 07-18-2021 End: 07-18-2021 ambulatory YAMILKA PAREKH Facility:[facility] Start: 07-18-2021 End: 07-18-2021 Patient encounter procedure Gab Culver APRN.CNP Work Phone: [facility] Comment on above: URI with cough and c ongestion (Primary Dx) Start: 06-13-2021 End: 06-13-[address] Xiang Rogesr Work Phone: [facility], [facility] Start: 04-01-2021 End: 04-01-2021 ambulatory YAMILKAColton PAREKH [facility] Morel Procedures Date Procedure Procedure Detail Performing [...] Adult depression scr eening assessment Gab Culver MOUSE BREEDER.COMPUTER HARDWARE DEVELOPER Work Phone: Start: 04-06-2006 History of coronary [...] (3 - Td or Tdap) [facility] Start: 11-10-2024 Gas panel - Arterial blood [facility] Start: 11-10-2024 Verification routine [facility] Start: 11-10-2024 Admission procedure [facility] Start: 11-10-2024 Hospital admission, emergency, from emergency room, medical nature [facility] Start: 11-10-2024 [facility] Start: 10-27-2024 [facility] Start: 10-23-2024 [facility] Start: 10-21-2024 [facility] Start: 10-19-2024 [facility] Start: 09-21-2024 Patient discharge [facility] Start: 09-20-2024 [facility] Start: 09-19-2024 [facility] Start: 09-18-2024 Following clinical pathway protocol [facility] Start: 09-18-2024 Ambulation without limitation [facility] Start: 09-18-2024 Assessment of risk o f venous thromboembolism [facility] Start: 09-18-2024 Care regimes management [facility] Start: 09-18-2024 Insertion of cathete r into peripheral vein [facility] Start: 09-18-2024 Measuring intake and output [facility] Start: 09-18-2024 Notification of physician [facility] Start: 09-18-2024 Oxygen therapy [facility] Start: 09-18-2024 Providing care accor ding to standard [facility] Start: 09-18-2024 Referral to service [facility] Start: 09-18-2024 End: 09-18-2024 [facility] Start: 09-18-2024 Hospital admission, emergency, from emergency room, medical nature [facility] Start: 09-18-2024 Verification routine [facility] Start: 09-18-2024 Admission procedure [facility] Start: 09-18-2024 [facility] Start: 09-18-2024 Inhalation therapy procedure [facility] Start: 07-29-2024 [facility] Start: 07-29-2024 End: 07-29-2024 [facility] Start: 06-20-2024 Patient discharge [facility] Start: 06-19-2024 [facility] Start: 06-19-2024 [facility] Start: 06-18-2024 Assessment of risk o f venous thromboembolism [facility] Start: 06-18-2024 Care regimes management [facility] Start: 06-18-2024 Catheterization of vein [facility] Start: 06-18-2024 Continuous pulse oximetry [facility] Start: 06-18-2024 Elevation of head of bed [facility] Start: 06-18-2024 Insertion of cathete r into peripheral vein [facility] Start: 06-18-2024 Measuring intake and output [facility] Start: 06-18-2024 Notification of physician [facility] Start: 06-18-2024 Oxygen therapy [facility] Start: 06-18-2024 Providing care accor ding to standard [facility] Start: 06-18-2024 Referral to secondary special education teacher [facility] Start: 06-18-2024 Referral to service [facility] Start: 06-18-2024 Tobacco use cessatio n education [facility] Start: 06-18-2024 Vital signs measurements [facility] Start: 06-18-2024 End: 06-18-2024 [facility] Start: 06-18-2024 Following clinical pathway protocol [facility] Start: 06-18-2024 End: 06-18-2024 Admission procedure [facility] Start: 06-18-2024 Dual pressure sponta neous ventilation support [facility] Start: 06-18-2024 Consultation [facility] Start: 06-18-2024 Inhalation therapy procedure [facility] Start: 06-17-2024 End: 06-18-2024 [facility] Start: 06-11-2024 Urine microalbumin profile DTaP,Tdap,Td Vaccine (2 - Td or Tdap) [facility] Start: 05-21-2024 [facility] Start: 05-21-2024 Airborne precautions [facility] Start: 05-09-2024 Echo tthrc r-t 2d w/wom-mode compl spec&colr d TTE W/DOPPLER COMPLETE [facility] Start: 04-20-2024 Patient discharge [facility] Start: 12-06-2023 Covid-19 Vaccine ( season) Covid-19 Vaccine ( season) [facility] Start: 12-06-2023 Influenza vaccination Influenza Vacc ine (#1) [facility] Start: 05-24-2023 Incision & drainage abscess simple/single I&D ABSCESS SIMPLE/SINGLE [facility] Start: 05-24-2023 [facility] Start: 04-25-2023 [facility] Start: 12-05-2022 Influenza vaccination Influenza Vacc ine (#1) [facility] Start: 05-23-2022 Patient referral [facility] Work Phone: Start: 04-21-2022 Patient referral [facility] Work Phone: Start: 04-19-2022 Patient discharge [facility] Start: 04-18-2022 Patient discharge [facility] Start: 04-18-2022 End: 04-18-2022 Provision of activity privileges [facility] Start: 04-18-2022 Scheduling [facility] Start: 04-18-2022 Vascular disease ris k assessment [facility] Start: 04-18-2022 End: 04-18-2022 Notification of physician [facility] Start: 04-18-2022 Patient education [facility] Start: 04-18-2022 Pulse taking [facility] Start: 04-18-2022 End: 04-18-2022 Taking patient vital signs [facility] Start: 04-18-2022 Wound care [facility] Start: 04-18-2022 End: 04-18-2022 [facility] Start: 04-18-2022 Catheterization of vein [facility] Start: 04-18-2022 Medication not administered [facility] Start: 04-18-2022 Notification of physician [facility] Start: 04-18-2022 [facility] Start: 04-18-2022 Following clinical pathway protocol [facility] Start: 04-18-2022 Assessment of risk o f venous thromboembolism [facility] Start: 04-18-2022 Care regimes management [facility] Start: 04-18-2022 Inhalation therapy procedure [facility] Start: 04-18-2022 Insertion of cathete r into peripheral vein [facility] Start: 04-18-2022 Measuring intake and output [facility] Start: 04-18-2022 Oxygen therapy [facility] Start: 04-18-2022 Providing care accor ding to standard [facility] Start: 04-18-2022 Provision of activit y privileges [facility] Start: 04-18-2022 Referral to secondary special education teacher [facility] Start: 04-18-2022 Referral to occupati onal therapist [facility] Start: 04-18-2022 Referral to service [facility] Start: 04-18-2022 Tobacco use cessatio n education [facility] Start: 04-18-2022 [facility] Start: 04-18-2022 Verification routine [facility] Work Phone: Start: 04-18-2022 Admission procedure [facility] Start: 04-18-2022 [facility] Work Phone: Start: 04-06-2022 Depression Assessment Depression Ass [facility] Start: 12-05-2021 Influenza vaccination [facility] Start: 04-06-2021 [facility]MENT [facility] Start: 06-06-2020 PROSTATE CANCER SCRE ENING DISCUSSION PROSTATE CANCER SCREENING DISCUSSION [facility] Start: 06-06-2020 Prostate specific an tigen measurement Prostate Cancer Screening Discussion [facility] Start: 2020 Hepatitis B Vaccine (1 of 3 - Risk 3-dose series) Hepatitis B Vaccine (1 of 3 - Risk 3-dose series) [facility] Start: 2020 RSV Vaccine (1 - 1-d ose 60+ series) RSV Vaccine (1 - 1-dose 60+ series) [facility] Start: 2020 RSV Vaccine (1 - Ris k 60-74 years 1-dose series) RSV Vaccine (1 - Risk 60-74 years 1-dose series) [facility] Start: 06-18-2019 ANNUAL PCP TEAM METAL DOOR ASSEMBLER MIAN DISEASE VISIT ANNUAL PCP TEAM CHRONIC DISEASE VISIT [facility] Start: 12-23-2017 Adult depression screening assessment DEPRESSION SCREENING [facility] Start: 01-13-2017 3 comp foot exam completed DIABETIC FOOT EXAM [facility] Start: 01-13-2017 Diabetic foot examination Diabetic F oot Exam [facility] Start: 01-13-2017 Hepatitis B surface antibody level LDL CHOLESTEROL [facility] Start: 10-08-2016 PNEUMOCOCCAL (2 - PCV) PNEUMOCOCCAL (2 - PCV) [facility] Start: 10-08-2016 Pneumococcal vaccination [facility] Start: 04-15-2016 Hemoglobin A1c measurement HbA1C [facility] Start: 04-15-2016 Hemoglobin A1c/Hemoglobin.total in Blood HBA1C [facility] Start: 01-22-2015 Influenza vaccination LUNG CANCER SC REENING [facility] Start: 01-22-2010 Influenza vaccination LUNG CANCER SC [facility] Start: 01-22-2010 Screening for malign ant neoplasm of lung Lung Cancer Screening [facility] Start: 01-22-2010 SHINGRIX VACCINE (1 of 2) NOVA GRIX VACCINE (1 of 2) [facility] Start: 01-22-2005 COLOGUARD (FIT-DNA) COLOGUARD (FIT-D NA) [facility] Start: 01-22-2005 Colonoscopy COLONOSCOPY [facility] Start: 01-22-2005 COLORECTAL CANCER SCREENING COLORECTAL CANCER SCREENING [facility] Start: 01-22-[address] COLONOGRAPHY [facility] Start: 01-22-2005 FECAL OCCULT BLOOD FECAL OCCULT BLOO D [facility] Start: 01-22-2005 Screening for malign ant neoplasm of colon [facility] Start: 01-22-2005 SIGMOIDOSCOPY SIGMOIDOSCOPY [facility] Start: 01-22-1979 Urine microalbumin profile DTAP,TDAP,TD (1 - Tdap) [facility] Start: 01-22-1978 ANNUAL PCP TEAM METAL DOOR ASSEMBLER MIAN DISEASE VISIT ANNUAL PCP TEAM CHRONIC DISEASE VISIT [facility] Start: 01-22-1978 Anxiety Screening Anxiety Screening [facility] Start: 01-22-1978 Depression Screening Depression Scre ening [facility] Start: 01-22-1978 HIV SCREENING HIV SCREENING [facility] Start: 01-22-1978 HIV screening HIV Screening [facility] Start: 01-22-1970 Glaucoma screening Dilated Retinal E xam [facility] Start: 01-22-1970 Hepatitis B screening URINE ALBUMIN:CREATININE RATIO [facility] Start: 01-22-1970 Hepatitis C antibody , confirmatory test DILATED RETINAL EXAM [facility] Start: 01-22-1965 COVID-19 VACCINE (1) COVID-19 VACCIN E (1) [facility] Start: 1960 COVID-19 VACCINE (#1) COVID-19 VACCI NE (#1) [facility] End: 02-05-2023 Ct pelvis w/o contrast material CT PELVIS WO IVCON Radiology Routine Left groin pain 1 Occurrences starting 01/06/2022 until 02/05/2023 [facility] Work Phone: Comment on above: 1 Occurrences starti ng 01/06/2022 until 02/05/2023 Hemoglobin A1c/Hemoglobin.total in Blood [facility] Work Phone: Hemoglobin A1c/Hemoglobin.total in Blood [facility] Lipid 1996 panel - S belinda or Plasma [facility] Patient Education [facility] Work Phone: Patient referral [facility] Work Phone: Troponin T.cardiac [Mass/volume] in Serum or Plasma by High sensitivity method [facility] US Carotid arteries [facility] US Heart [facility] Immunizations Immunization Date Immunization Notes Care Provider Fa cility 04-25-2023 tetanus toxoid, redu jesse diphtheria toxoid, and acellular pertussis vaccine, adsorbed Dr. Xiang Rogers Work Phone: [facility] 12-23-2016 influenza, injectabl e, quadrivalent, contains preservative Gab Culver MOUSE BREEDER.COMPUTER HARDWARE DEVELOPER Work Phone: [facility] 12-23-2016 influenza virus vacc ine, unspecified formulation Ct (I-Stat) Work Phone: [facility] 10-09-2015 pneumococcal polysaccharide vaccine, 23 valent Gab Culver MOUSE BREEDER.COMPUTER HARDWARE DEVELOPER Work Phone: [facility] Work Phone: 06-11-2014 tetanus toxoid, redu jesse diphtheria toxoid, and acellular pertussis vaccine, adsorbed Dr. Xiang Rogers Work Phone: [facility] Payers Date Payer Category Payer Self-pay [id number] 2023 Unknown [id number] 2023 Unknown NEVILLE LOZADA TIA X [id number] 2023-Present [phone] [address] [address] [place] [address] [facility] [id number] 2023 Unknown [id number] 2020 Medicaid [employer] [id number] 2020-Present [phone] [address] [place] [address] Medicaid [id number] 2020 Medicaid [id number] [id number]. [id number] 2020 Unknown [id number] 2014 Unknown R [id number] Unknown [id number] Unknown [id number] 2.16.840.1.287008.3.579.2.462 Unknown [id number] 2.16.840.1.848341.3.579.2.462 Unknown [id number] 2.16.840.1.265002.3.579.2.462 Unknown [id number] 2.16.840.1.139413.3.579.2.462 Unknown [id number] 2.16.840.1.123023.3.579.2.462 Unknown [id number] 2.16.840.1.863969.3.579.2.462 Unknown [id number] 2.16.840.1.360695.3.579.2.462 Unknown [id number] 2.16.840.1.205722.3.579.2.462 Unknown [id number] 2.16.840.1.715366.3.579.2.462 Unknown [id number] 2.16.840.1.406057.3.579.2.462 Unknown [id number] 2.16.840.1.787979.3.579.2.462 Unknown [id number] 2.16.840.1.403316.3.579.2.462 Unknown [id number] 2.16.840.1.187718.3.579.2.462 Unknown [id number] 2.16.840.1.515167.3.579.2.462 Unknown [id number] 2.16.840.1.382910.3.579.2.462 Unknown [id number] 2.16.840.1.141570.3.579.2.462 Unknown [id number] 2.16.840.1.227070.3.579.2.462 Unknown [id number] 2.16840.1.307052.3.579.2.462 Unknown [id number] 2.16840.1.771901.3.579.2.462 Unknown [id number] 2.16.840.1.199524.3.579.2.462 Unknown [id number] 2.16.840.1.513112.3.579.2.462 Unknown [id number] 2.16840.1.601866.3.579.2.462 Unknown [id number] 2.16.840.1.093560.3.579.2.462 Unknown [id number] 2.16.840.1.312831.3.579.2.462 Unknown [id number] 2.16.840.1.722490.3.579.2.462 Unknown [id number] 2.16.840.1.085932.3.579.2.462 Unknown [id number] 2.16.840.1.818458.3.579.2.462 Unknown [id number] 2.16.840.1.211935.3.579.2.462 Unknown [id number] 2.16.840.1.163011.3.579.2.462 Unknown [id number] 2.16.840.1.959606.3.579.2.462 Unknown [id number] 2.16.840.1.407646.3.579.2.462 Unknown [id number] 2.16.840.1.066471.3.579.2.462 Unknown [id number] 2.16.840.1.674036.3.579.2.462 Unknown [id number] 2.16.840.1.630113.3.579.2.462 Unknown [id number] 2.16.840.1.023554.3.579.2.462 Unknown [id number] 2.16.840.1.017621.3.579.2.462 Unknown [id number] 2.16.840.1.725859.3.579.2.462 Unknown [id number] 2.16.840.1.296054.3.579.2.462 Unknown [id number] 2.16.840.1.716713.3.579.2.462 Unknown [id number] 2.16.840.1.606957.3.579.2.462 Unknown [id number] 2.16.840.1.613623.3.579.2.462 Unknown [id number] 2.16.840.1.791997.3.579.2.462 Unknown [id number] 2.16.840.1.513158.3.579.2.462 Unknown [id number] 2.16.840.1.225646.3.579.2.462 Unknown [id number] 2.16.840.1.623034.3.579.2.462 Unknown [id number] 2.16.840.1.075134.3.579.2.462 Unknown [id number] 2.16.840.1.012103.3.579.2.462 Unknown [id number] 2.16.840.1.116956.3.579.2.462 Unknown [id number] 2.16.840.1.703505.3.579.2.462 Unknown [id number] 2.16.840.1.180761.3.579.2.462 Unknown [id number] 2.16.840.1.788885.3.579.2.462 Unknown [id number] 2.16.840.1.015312.3.579.2.462 Unknown [id number] 2.16.840.1.818372.3.579.2.462 Social History Date Type Detail Facility Start: 01-06-2022 End: 12-31-2023 Tobacco smoking status NHIS Smokes tobacco daily [facility] Work Phone: History of tobacco use Cigarette Smoker [facility] Start: 07-18-2021 End: 12-31-2023 Alcohol intake Current non-drinker of alcohol (finding) [facility] Start: 1960 Sex Assigned At Not on file [facility] Start: 07-08-2021 End: 02-04-2022 Exposure to SARS-CoV-2 (event) Not sure [facility] Start: 07-18-2021 End: 06-02-2023 Tobacco smoking status AZIS Unknown if ever smoked [facility] Start: 04-12-2019 None [facility] Start: 04-12-2019 Spouse/ Signif icant Other [facility] Start: 08-11-2020 Cigarettes [facility] Start: 1960 Sex Assigned At Male W [facility] Start: 01-06-2022 End: 05-02-2022 Cigarettes smoked current (pack per day) - Reported 2 [facility] Start: 01-06-2022 End: 12-31-2023 Tobacco use and exposure Smokeless tobacco non-user [facility] Start: 01-06-2022 Tobacco Comment started at age 14 Cl [facility] Start: 01-28-2022 End: 05-02-2022 Tobacco use panel [facility] National Score (1-10 0), lower number is lower risk Not on file [facility] Start: 06-17-2024 End: 10-21-2024 Tobacco smoking status AZIS Current Heavy tobacco smoker [facility] Start: 06-23-2024 Sex Male (finding) [facility] Start: 10-23-2024 End: 11-10-2024 Tobacco smoking status [facility] Current Light tobacco smoker [facility] Medical Equipment Procedure Code Equipment Code Equipment Origin al Text Equipment Identifier Dates [id number], [id number], [id number] Start: 01-21-2016 Comment on above: Test blood [...] 04-02-2021 Pen Needle, Diabetic (Comfort Ez Pen [place]) 31 gauge x 5/16 needle Start: 10-28-2023 [...] Functional status Ambulates;Up a d andree;Bathroom Privilege [facility] Work Phone: 09-19-2024 Functional status None [facility] Work Phone: 06-20-2024 Functional status Chair [facility] Work Phone: 04-19-2022 Functional status Ambulates;Up ad andree [facility] Work Phone: Mental Status Date Assessment Result Facility 10-26-2024 Cognitive function Awake;Alert;A ppropriate;Follow s Commands [facility] Work Phone: 10-19-2024 Cognitive function Voice/Name [facility] Work Phone: 09-21-2024 Cognitive function Voice/Name [facility] Work Phone: 09-18-2024 Cognitive function Voice/Name [facility] Work Phone: 07-29-2024 Cognitive function Voice/Name [facility] Work Phone: 06-20-2024 Cognitive function Voice/Name [facility] Work Phone: 04-19-2022 Cognitive function Voice/Name [facility] Work Phone: 04-18-2022 Cognitive function Voice/Name [facility] Work Phone: 07-18-2021 Cognitive function Level Of Cons ciousness Awake;Alert;Appropriate [facility] Work Phone: Clinical Notes 06-11-2018 to 11-10-2024 Note Date & Type Note Facility 11-10-2024 Radiology Diagnostic study note [facility] 11-10-2024 Discharge summary Note Date/Time November 10, 2024 7:26pm [facility] Medical Records Department [address] [place] [address] Emergency Department Summary 11/10/24 MR#: [id number] Acct: [id number] Name: JAYLEN MEJIA Hannah . Rep #:[id number] : 1960 64 From: Bishop whalen DO PCP: Dr. Xiagn Rogers, DO Status:RE G ER Location: ED [...] record. Patient was just recently admitted to [facility] for shortness of breath and CHF exacerbation. [...] intact Psych: Cooperative, appropriate mood and affect [facility] Medical History Cardiac LV ejection [...] Nicotine dependence Atherosclerosis of coronary artery of [place] heart without angina pectoris Hyperlipidemia Essential (primary) [...] Unkno wn Rx 08/19 (Comfort EZ Pen [place]) evolocumab 140 mg/mL subcutaneous 140 mg subcut [...] record. Patient was just recently admitted to [facility] for shortness of breath and CHF exacerbation. [...] % (Auto) 69.7 Lymph % (Auto) 20.2 [place] % (Auto) 8.0 Eos % (Auto) 1.5 [...] right. Increased from prior exam. Reading Location: [id number] Discharge Plan Triage Chief Complaint: Shortness of Breath ED Provider: Bishop Monique Dx/Rx/DC Orders Prescriptions: No Action (DME) Handicap placard See Rx Instructions .Route .MEDSUPPLY Qty: 1 0RF Rx Instructions: Due to COPD, unable to walk 50 yards without assistance, duration 5 years. (DME) pen needle, diabetic [Comfort EZ Pen [place]] 31 gauge x 5/16 needle See Rx [...] DO [Primary Care Provider] - Print Language: Lebanese What to do if you have Problems For any increased pain, shortness of breath, bleeding, nausea or vomiting, chestpain, or any unexpected problems, contact your Primary Care Provider. Call [facility] ([phone]) or report to the closest Emergency Room. Call 911 if necessary. 11/10/241925 <Electronically signed by Bishop Monique DO> Cosigner Signature (if applicable): CC: Dr. Xiang Rogers DO ~ Signed [facility] Work Phone: 1(933) 416-491707-24-2025 Radiology Diagnostic study [facility]07-20-2025 Discharge summary Author Devin Curry [facility] Note Date/Time October 23, 2024 8:44 pm [facility] Medical Records Department [address] [place] [address] Emergency Department Summary 10/23/24 MR#: [id number] Acct: [id number] Name: JAYLEN MEJIA Sr. Rep #:[id number] : 1960 64 From: Devin Curry MD PCP: Dr. Xiang Rogers, DO Status:RE G ER Location: ED HPI History of Present Illness Chief Complaint: Cellulitis Informant: patient Onset/Context/Timing Onset: Days Context: Gradual Onset Timing: Continuous Current Severity: Mild Maximum Severity: Mild Narrative Narrative: 64-year-old male history of insulin-dependent diabetes, hypertension, [place], COPD, CHF. Recent admission last several weeks [...] Nicotine dependence Atherosclerosis of coronary artery of [place] heart without angina pectoris Hyperlipidemia Essential (primary) [...] Unkno wn Rx 08/19 (Comfort EZ Pen [place]) evolocumab 140 mg/mL subcutaneous 140 mg subcut [...] % (Auto) 68.5 Lymph % (Auto) 21.6 [place] % (Auto) 6.1 Eos % (Auto) 3.4 [...] (DME) pen needle, diabetic [Comfort EZ Pen [place]] 31 gauge x 5/16 needle See Rx [...] week. Return if feeling worse. Print Language: Lebanese Disposition Disposition: Home, Self Care What to do if you have Problems For any increased pain, shortness of breath, bleeding, nausea or vomiting, chestpain, or any unexpected problems, contact your Primary Care Provider. Call [email or web address] Registry ([phone]) or report to the closest Emergency Room. Call 911 if necessary. 10/23/242043 <Electronically signed by Devin Curry MD> Cosigner Signature (if applicable): CC: Dr. Xiang Rogers DO ~ Signed [facility] Work Phone: 1(414) 777-920507-20-2025 Hospital Discharge instructionsAdditional Instructions The antibiotic clindamycin [...] evaluation later this week. Return if feeling worse.[facility] Work Phone: 1(133) 254-908707-16-2025 Radiology Diagnostic study [facility]07-16-2025 Discharge summary Author Valentín Miller [facility] Note Date/Time October 19, 2024 11:2 1pm [facility] Medical Records Department [address] [place] [address] Emergency Department Summary 10/19/24 MR#: [id number] Acct: [id number] Name: JAYLEN MEJIA Sr. Rep #:[id number] : 1960 64 From: Valentín Saravia PCP: Dr. Xiang Rogers, DO Status:RE G ER Location: ED HPI History of Present Illness Chief Complaint: Chest Pain [facility] Medical History GERD (gastroesophageal reflux [...] Nicotine dependence Atherosclerosis of coronary artery of [place] heart without angina pectoris Hyperlipidemia Essential (primary) [...] Unkno wn Rx 5/16 (Comfort EZ Pen [place]) evolocumab 140 mg/mL subcutaneous 140 mg subcut [...] anterior hypokinesis Factors affecting care: As per [facility] Social determinants of health: smoker History obtained from others: none Consults: none [facility] Narrative: The patient was initially tachycardic [...] of breath. The patient ruled out by [facility] high-sensitivity troponin protocol for ACS. It [...] Discharge home This note was generated with 3CI dictation software. It may contain incorrectwords, spelling, [...] % (Auto) 65.7 Lymph % (Auto) 24.7 [place] % (Auto) 6.1 Eos % (Auto) 3.1 [...] evidence of acute cardiopulmonary disease. Reading Location: [id number] Discharge Plan Triage Chief Complaint: Chest Pain [...] (DME) pen needle, diabetic [Comfort EZ Pen [place]] 31 gauge x 5/16 needle See Rx [...] [Primary Care Provider] - Jose Garcia MD [[facility] Staff - Active Staff] - Activity Restrictions/Additional Instructions: Thank you for trusting us with your care today! Please take prescribed Lasix. Please return to the emergency department if your symptoms change or worsen. Specifically develop worsening chest pain, leg swelling or shortness of breath. Please follow with your primary care physician for further outpatient evaluationand management. Print Language: Lebanese Disposition Disposition: Home, Self Care What to do if you have Problems For any increased pain, shortness of breath, bleeding, nausea or vomiting, chestpain, or any unexpected problems, contact your Primary Care Provider. Call [email or web address] Registry ([phone]) or report to the closest Emergency Room. Call 911 if necessary. 10/19/24 7226 <Electronically signed by Valentín Miller DO> Cosigner Signature (if applicable): CC: Dr. Xiang Rogers, DO ~ Signed [facility] Work Phone: 1(720) 140-374206-18-2025 Discharge summary Author Donna Wolff [facility] Note Date/Time September 21, 2024 4:22 pm [facility] Medical Records Department [address] [place] [address] Instructions for Home/Discharge Instructions 09/21/24 1537 MR#: [id number] Acct: [id number] Name: JAYLEN MEJIA . Rep #:[id number] [...] When you eat out, ask that the chefs not add any salt to your dish. Don't eat fried or greasy foods. Be careful of bottled beverages. They can contain a lot of salt -Call 911 right away if you have: -Severe shortness of breath, such that you can't catch your breath even while resting -Severe chest pain that does not resolve with rest or nitroglycerin -[place], foamy mucus with cough and shortness of [...] (DME) pen needle, diabetic [Comfort EZ Pen [place]] 31 gauge x 5/16 needle See Rx [...] Week Magaly Abdi PA [Med Staff - [facility] Practice Prof] - Within 2 Weeks Disposition Disposition (needs filled in before D/C Order can be placed): Home, Self Care 09/21/24 1622<Electronically signed by Donna Wolff MD>Donna Wolff MD CC: Dr. Clinton Soares DO; Dr. Xiang Rogers DO; Dr. Seth Carrington DO ~ Signed [facility] Work Phone: 1(897) 672-804506-18-2025 [facility]06-17-2025 Progress note Author Seth Carrington [facility] Note Date/Time September 20, 2024 7:12 pm [facility] Medical Records Department [address] [place] [address] Progress Note - Hospitalist 09/20/24 1910 MR#: [id number] Acct: [id number] Name: ROBERTOJAYLEN L Sr. Rep #:[id number] : 1960 64 From: Seth Carrington DO PCP: Dr. Xiang Rogers DO Status:AD M IN Location: [place] [address] Hospitalist Note Additional note: Per my review [...] 20 mg daily, Zetia 10 mg daily, Dxdpgr00 mg daily. Patient is not taking the following medications: Spironolactone 25 mg daily, Lasix 40 mg twice daily, atorvastatin 80 mg daily, metformin 1000 mg twice daily, Pletal 50 mg daily. 09/20/241911 <Electronically signed by Seth Carrington DO> Cosigner Signature (if applicable): CC: ~ Signed [facility] Work Phone: 1(785) 395-838106-17-2025 Progress note Author Seth Rossredwood [facility] Note Date/Time September 20, 2024 6:38 pm [facility] Medical Records Department [address] [place] [address] Progress Note - Hospitalist 09/19/24 1900 MR#: [id number] Acct: [id number] Name: ROBERTOJAYLEN Hannah Schmitt. Rep #:[id number] : 1960 64 From: Seth Carrington DO PCP: Dr. Xiang Rogers, DO Status:[facility] [place] Location: [place] [address] Reason for Visit Reason for Visit: Diagnoses [...] fraction is 35 %. Normal LV size. [place] : Akinetic. Mid-Anterior : Severely Hypokinetic. Compared [...] 50 minutes Charges/Coding Visit Charges Inpatient E&M: 19059 Subs Hosp L3 09/20/248 <Electronically signed by Seth Carrington DO> Cosigner Signature (if applicable): CC: ~ Signed [facility] Work Phone: 1(261) 897-535306-16-2025 Discharge summary Author Saúl Aguilar [facility] Note Date/Time September 18, 2024 10:3 5pm [facility] Medical Records Department [address] [place] [address] Emergency Department Summary 09/18/24 MR#: [id number] Acct: [id number] Name: JAYLEN MEJIA Sr. Rep #:[id number] : 1960 64 From: Saúl Saravia PCP: Dr. Xiang Rogers DO Status:AD M IN [facility] History of Present Illness Chief Complaint: [...] Nicotine dependence Atherosclerosis of coronary artery of [place] heart without angina pectoris Hyperlipidemia Essential (primary) [...] Unkno wn Rx 08/19 (Comfort E[employer] Pen [place]) evolocumab 140 mg/mL subcutaneous 140 mg subcut [...] % (Auto) 61.9 Lymph % (Auto) 27.0 [place] % (Auto) 6.7 Eos % (Auto) 3.7 [...] 10:26 IMPRESSION: No Acute Findings. Reading Location: [facility] Portable 1 view chest x-ray was [...] asinus tachycardia with a rate of 103. SD interval, QRS interval, and QTc intervals were all normal. Temple was normal. There are nonspecific ST-T wave [...] (DME) pen needle, diabetic [Comfort EZ Pen [place]] 31 gauge x 5/16 needle See Rx [...] Rogers, [Primary Care Provider] - Print Language: Lebanese Disposition Disposition: Acute Care Hospital [facility] What to do if you have Problems For any increased pain, shortness of breath, bleeding, nausea or vomiting, chestpain, or any unexpected problems, contact your Primary Care Provider. Call [facility] ([phone]) or report to the closest Emergency Room. Call 911 if necessary. 09/18/242234 <Electronically signed by Saúl Aguilar DO> Cosigner Signature (if applicable): CC: Dr. Xiang Rogers DO ~ Signed [facility] Work Phone: 1(323) 469-904206-15-2025 History and physical note [facility] Note Date/Time September 18, 2024 2:16 pm [facility] Medical Records Department [address] [place] [address] H&P Exam - Hospitalist 09/18/24 1339 MR#: [id number] Acct: [id number] Name: JAYLEN MEJIA Sr. Rep #:[id number] : 1960 64 From: Clinton khan DO PCP: Dr. Xiang Rogers DO Status:AD M IN Location: [facility] [id number]- 1 HPI - General General Date of Admission: 09/18/24 Date of Service: 09/18/24 Chief Complaint: Shortness of breath and chest discomfort HPI Narrative JAYLEN MEJIA, is a 64 M who presented to [facility] ED on 09/18/2024 with chest pain and volume overload. [facility]. Has [facility] of CABG [...] Nicotine dependence Atherosclerosis of coronary artery of [place] heart without angina pectoris Hyperlipidemia Essential (primary) [...] Unkno wn Rx 08/19 (Comfort EZ Pen [place]) evolocumab 140 mg/mL subcutaneous 140 mg subcut [...] % (Auto) 61.9, Lymph % (Auto) 27.0, [place]% (Auto) 6.7, Eos % (Auto) 3.7, Baso [...] 10:26 IMPRESSION: No Acute Findings. Reading Location: [id number] Assessment & Plan Assessment/Plan (1) Acute on chronic HFrEF (heart failure with reduced ejection fraction): PLAN: Plan Patient is a 64-year-old male who presented to [facility] ED on 09/18/2024 with shortness of [...] with A1c values consistently above 10% since [id number]. Repeat A1c ordered. Glucose 184 on admit. [...] 75 minutes. Charges/Coding Visit Charges Inpatient E&M: 28776 Init Hosp L3 09/18/24 1416 <Electronically signed by Clinton Soares DO> Cosigner Signature (if applicable): CC: Dr. Clinton Soares, DO; Dr. Xiang Rogers, DO~ Signed [facility] Work Phone: 1(871) 813-787506-15-2025 Radiology Diagnostic study [facility]04-10-2025 Evaluation note* Diagnosis Onset Date Resolution Status [...] ejection fraction) chronic November 10, 2024 10:05am [employer] [employer] Work Phone: 1([phone]) 643-663804-10-2025 Evaluation note* Diagnosis Onset Date Resolution Status [...] 03, 2024 10:15am Type 2 diabetes mellitus ordy ated with insulin acute November 04, 2024 [...] ith reduced ejection fraction) acute Aug2024 7:21pm [facility] Work Phone: 1([phone]) 250-783204-08-2025 Evaluation note* Diagnosis Onset Date Resolution Status [...] surgery 2007 resolved September 27, 2024 9:55am [facility] Work Phone: 1(489) 520-585104-08-2025 Evaluation note* Diagnosis Onset Date Resolution Status [...] surgery 2007 resolved November 03, 2024 10:15am [facility] Work Phone: 1(311) 784-1527930895-16-1167 [facility]03-15-2025 Evaluation note* Diagnosis Onset Date Resolution Status [...] ejection fraction) chronic September 18, 2024 1:39pm [facility] Work Phone: 1([phone]) 903-334403-15-2025 Evaluation note* Diagnosis Onset Date Resolution Status [...] surgery 2007 resolved September 27, 2024 9:55am [facility] Work Phone: 1([phone]) 720-5763980147-20-4568 [facility]02-11-2025 Evaluation note* Diagnosis Onset Date Resolution Status [...] Nicotine dependence chronic August 02, 2024 11:21am [facility] Work Phone: 1([phone]) 482-904111-20-2024 Evaluation note* Diagnosis Onset Date Resolution Status [...] er extremity with ulceration acute 2024 12:40pm [facility] Work Phone: [phone] 654-865409-26-2024 History of Present illness Narrative* Gab Culver, BROOKE.COMPUTER HARDWARE DEVELOPER - 12/31/2023 9:33 AM EDT Subjective HPI [...] non-ST elevation myocardial infarction (NSTEMI) 06/11/2018 Hyperlipidemia Machinery Repair Maintenance Supervisor Dr. Herrera Espinosa Hypertension Other emphysema (HCC) [...] of care. This note was generated using 3CI software. It may contain errors in wording, punctuation, or spelling. Gab Culver APRN.TURNER [facility] Hospital Discharge instructions Additional Instructions Your x-ray [...] please return to the ER for repeat evaluationWSelect [facility] Work Phone: 1(296) 618-168311-01-2022 NoteHNO ID: [id number] Author: Yamilka Parekh MD Service: ? Author [...] non-ST elevation myocardial infarction (NSTEMI) 06/11/2018 Hyperlipidemia Machinery Repair Maintenance Supervisor Dr. Herrera Espinosa Hypertension Other emphysema (HCC) [...] any blood vessels/nerv (more content not included)... [facility]11-01-2022 History of Present illness Narrative* [...] non-ST elevation myocardial infarction (NSTEMI) 06/11/2018 Hyperlipidemia Machinery Repair Maintenance Supervisor Dr. Herrera Espinosa Hypertension Other emphysema (HCC) [...] Parekh MD documented in this encounterSelect [facility] [place]-25-2022 NoteHNO ID: [id number] Author: Yamilka Parekh MD Service: ? Author [...] non-ST elevation myocardial infarction (NSTEMI) 06/11/2018 Hyperlipidemia Machinery Repair Maintenance Supervisor Dr. Herrera Espinosa Hypertension Other emphysema (HCC) [...] and completing appropriate m (more content not included)...[facility]10-25-2022 History of Present illness Narrative* Yamilka [...] non-ST elevation myocardial infarction (NSTEMI) 06/11/2018 Hyperlipidemia Machinery Repair Maintenance Supervisor Dr. Herrera Espinosa Hypertension Other emphysema (HCC) [...] Parekh MD documented in this encounterSelect [facility] [place]-2022 NoteHNO ID: [id number] Author: RT Benji(Suman) Service: ? Author Type: Venetian Blind Tape Cutter Type: Progress Notes Filed: 01/28/2022 3:01 PM [...] BY: RT Betsy(Suman) January 28, 2022 3:01 [facility] History of Present illness Narrative* Hazel Bright [...] 3:01 PM documented in this encounterSelect [facility] [place]-2022 NoteHNO ID: [id number] Author: Yamilka Parekh MD Service: ? Author [...] non-ST elevation myocardial infarction (NSTEMI) 06/11/2018 Hyperlipidemia Machinery Repair Maintenance Supervisor Dr. Herrera Espinosa Hypertension Other emphysema (HCC) [...] REVIEW OF SYSTEMS: General: (more content not included)...[facility]10-03-2022 History of Present illness Narrative* Yamilka [...] non-ST elevation myocardial infarction (NSTEMI) 06/11/2018 Hyperlipidemia Machinery Repair Maintenance Supervisor Dr. Herrera Espinosa Hypertension Other emphysema (HCC) [...] entered by the nurse and reviewed by fl Nursing Notes: Allison Haines RN 01/06/2022 9:32 [...] of any pertinent laboratory studies/radiological imaging/medical records, hyyn-la-fngkyxrcjbk care, obtaining oral medical history from the patient in this encounter, performing a medically appropriate examination, counseling and educating the patient/family/caregiver, and ordering and/or scheduling of medications/tests/procedures, and completing appropriate medical documentation. Yamilka Parekh MD documented in this encounterSelect [facility] [place]-03-2022 Nurse Note* Allison Haines RN - 01/06/2022 [...] Haines RN documented in this encounterSelect [facility] [place]-14-2022 NoteHNO ID: [id number] Author: Gab Culver APRN.COMPUTER HARDWARE DEVELOPER Service: ? Author Type: Nurse Practitioner Type: [...] type 2 in obese (HCC) - Hyperlipidemia Machinery Repair Maintenance Supervisor Dr. Herrera Espinosa - Hypertension - Pancreatitis [...] He is not diaphoretic (more content not included)...[facility]04-14-2022 Instructions* Patient Instructions* Gab Culver APRN.[facility] - 07/18/2021 1:15 PM EDT RESPIRATORY [...] spread by coughs, sneezes, anddirect contact, especially [id number]. A respiratory tract infection usually clears up [...] (39 C). documented in this encounterSelect [facility] [place]-14-[facility]22 History of Present illness Narrative* Gab Culver [...] mellitus type 2 in obese (HCC) Hyperlipidemia Machinery Repair Maintenance Supervisor Dr. Herrera Espinosa Hypertension Pancreatitis Tobacco use [...] of care. This note was generated using 3CI software. It may contain errors in wording,punctuation, or spelling. Gab Culver APRN.TURNER documented in this encounterSelect [facility] [place]12-27-2021 NoteHNO ID: [id number] Author: Maxx Owen APRN.TURNER Service: ? Author [...] type 2 in obese (HCC) - Hyperlipidemia Machinery Repair Maintenance Supervisor Dr. 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 Hyperlipidemia chronic Insulin dependent diabetes mellitus chronic H/O coronary artery bypass surgery 2007 resolved [facility] Work Phone: Evaluation note* Diagnosis Onset Date Resolution Status Essential (primary) hypertension chronic Insulin dependent diabetes mellitus chronic Stenosis of right carotid artery chronic H/O coronary artery bypass surgery 2006 resolved [facility] Work Phone: Evaluation note* Diagnosis Onset Date Resolution Status Essential (primary) hypertension chronic Insulin dependent diabetes mellitus chronic Stenosis of right carotid artery chronic H/O coronary artery bypass surgery 2006 resolved Essential (primary) hypertension chronic Insulin dependent diabetes mellitus chronic Stenosis of right carotid artery chronic [facility] Work Phone: Evaluation note* Diagnosis Left groin pain- Primary Abdominal pain, left lower quadrant documented in this encounter [facility] [place]* Diagnosis Left groin pain- Primary Abdominal pain, left lower quadrant documented [facility] this [facility]* Diagnosis Recurrent left inguinal hernia- Primary Inguinal hernia without mention of obstruction or gangrene, recurrent unilateral or unspecified documented in this encounter [facility]* Diagnosis Onset Date Resolution Status Essential (primary) hypertension chronic Insulin dependent diabetes mellitus chronic Stenosis of right carotid artery chronic [facility] Work Phone: Evaluation note* Diagnosis Onset Date Resolution Status Essential (primary) hypertension chronic Insulin dependent diabetes mellitus chronic Stenosis of right carotid artery chronic [id number] acute Nicotine dependence chronic [facility] Work Phone: Evaluation note* Diagnosis Onset Date Resolution Status Essential (primary) hypertension chronic Insulin dependent diabetes mellitus chronic Stenosis of right carotid artery chronic [id number] acute Nicotine dependence chronic Essential (primary) hypertension chronic Hyperlipidemia chronic Insulin dependent diabetes mellitus chronic H/O coronary artery bypass surgery 2007 resolved NSTEMI, initial episode of care acute Insulin dependent diabetes mellitus chronic Nicotine dependence chronic [facility] Work Phone: Evaluation note* Diagnosis Onset Date Resolution Status [id number] acute Nicotine dependence chronic Essential (primary) hypertension [...] H/O coronary artery bypass surgery 2007 resolved [facility] Work Phone: Evaluation note* Diagnosis Left groin pain Abdominal pain, left lower quadrant documented in this encounter [facility] [place]* Diagnosis Onset Date Resolution Status Essential (primary) hypertension chronic Hyperlipidemia chronic Nicotine dependence chronic Stenosis of right carotid artery chronic H/O coronary artery bypass surgery 2006 resolved Non-STEMI (non-ST elevated myocardial infarction) acute 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 Essential (primary) hypertension chronic Insulin dependent diabetes mellitus chronic Nicotine dependence chronic [facility] Work Phone: Evaluation note* Diagnosis Onset Date Resolution Status Non-STEMI (non-ST elevated myocardial infarction) acute 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 Essential (primary) hypertension chronic Insulin dependent diabetes mellitus chronic Nicotine dependence chronic [id number] acute Nicotine dependence chronic [facility] Work Phone: Evaluation note* Diagnosis Sinobronchitis- Primary Unspecified sinusitis (chronic) documented in this encounter [facility] [place] and physical note Author Clinton Soares [facility] Note Date/Time September 18, 2024 2:[address] [facility] Medical Records Department [address] [place] [address] H&P Exam - Hospitalist 09/18/24 1339 MR#: [id number] Acct: [id number] Name: JAYLEN MEJIA Sr. Rep #:[id number] : 1960 64 From: Clinton khan DO PCP: Dr. Xiang Rogers, DO Status:AD M IN Location: [facility] [id number]- 1 HPI - General General Date of Admission: 09/18/24 Date of Service: 09/18/24 Chief Complaint: Shortness of breath and chest discomfort HPI Narrative JAYLEN MEJIA, is a 64 M who presented to [facility] ED on 09/18/2024 with chest pain and volume overload. [facility]. Has history of CABG [...] Nicotine dependence Atherosclerosis of coronary artery of [place] heart without angina pectoris Hyperlipidemia Essential (primary) [...] Unkno wn Rx 08/19 (Comfort EZ Pen [place]) evolocumab 140 mg/mL subcutaneous 140 mg subcut [...] % (Auto) 61.9, Lymph % (Auto) 27.0, [place]% (Auto) 6.7, Eos % (Auto) 3.7, Baso [...] 10:26 IMPRESSION: No Acute Findings. Reading Location: [id number] Assessment & Plan Assessment/Plan (1) Acute on chronic HFrEF (heart failure with reduced ejection fraction): PLAN: Plan Patient is a 64-year-old male who presented to [facility] ED on 09/18/2024 with shortness of [...] with A1c values consistently above 10% since [id number]. Repeat A1c ordered. Glucose 184 on admit. [...] 75 minutes. Charges/Coding Visit Charges Inpatient E&M: 46261 Init Hosp L3 09/18/24 1416 <Electronically signed by Clinton Soares DO> Cosigner Signature (if applicable): CC: Dr. Clinton Soares, ; Dr. Xiang Rogers DO~ Signed [facility] Work Phone: History and physical note Author Corazon Diaz [facility] Note Date/Time November 10, 2024 7:5 6pm [facility] Medical Records Department [address] [place] [address] H&P Exam - Hospitalist 11/10/24 1930 MR#: [id number] Acct: [id number] Name: JAYLEN MEJIA Sr. Rep #:[id number] : 1960 64 From: Corazno Diaz MD PCP: Dr. Xiang Rogers DO [...] x 4, Tobacco use whopresents to the [facility] ED on 11/10/2024 with history of recently [...] Nicotine dependence Atherosclerosis of coronary artery of [place] heart without angina pectoris Hyperlipidemia Essential (primary) [...] Unkno wn Rx 5/16 (Comfort EZ Pen [place]) evolocumab 140 mg/mL subcutaneous 140 mg subcut [...] % (Auto) 69.7, Lymph % (Auto) 20.2, [place]% (Auto) 8.0, Eos % (Auto) 1.5, Baso [...] right. Increased from prior exam. Reading Location: [id number] Assessment & Plan Assessment/Plan (1) Acute HFrEF (heart failure with reduced ejection fraction): PLAN: Plan The patient is a 64 y/o M w/ PMHx: Hx CVA w/ mild facial droop, CKD stage II perGFR trending, HFrEF, GERD, Anxiety and Depression, HTN, HLD, Diabetes mellitus type II, COPD/Asthma, Carotid disease s/p CEA, CAD s/p CABG x 4, Tobacco use whopresents to the [facility] ED on 11/10/2024 with history of recently [...] 16 minutes. Charges/Coding Visit Charges Inpatient E&M: 02488 Init Hosp L3 Procedures Hospitalists Procedures: 27106 Advncd Care Plan 30 Min 11/10/241955 <Electronically signed by Corazon Diaz MD> Cosigner Signature (if applicable): CC: Dr. Corazon Diaz MD; Dr. Xiang Rogers, DO~ Signed [facility] Work Phone: Hospital Discharge instructionsAdditional Instructions Thank you for trusting us with your care today! Please take prescribed Lasix. Please return to the emergency department if your symptoms change or worsen. Specifically develop worsening chest pain, leg swelling or shortness of breath. Please follow with your primary care physician for further outpatient evaluation and management.[facility] Work Phone: Hospital Discharge instructionsAdditional Instructions [...] the ER should you have any further concernsWSelect [facility] Work Phone: Reason for referral (narrative)No reason for referral information availableWSelect Medical [facility] Work Phone: Advance Directives Documents on File Type Date Recorded Patient Faculty Physician Expl anation Advance Directive(s) 01/20/2017 7:47 AM Advance Directive(s) 09/05/2015 4:07 PM Advance Directive Response Recorded Date/ Time Advance Directives No January 13, 2020 3:59pm Living Will No July 18, 2021 9:19pm Power of Clinical Account Specialist No July 18 9:19pm Advance Directive Response Recorded Date/ Time Advance Directives No January 13, 2020 3:59pm Living Will No December 08, 022 11:25pm Power of Clinical Account Specialist No December 08, 2021 11:25pm Advance Directive Response Recorded Date/ Time Advance Directives No January 13, 2020 2:59pm Living Will No March 01 022 9:51pm Power of Clinical Account Specialist No March 01, 2022 9:51pm Advance Directive Response Recorded Date/ Time Advance Directives No January 13, 2020 2:59pm Living Will No April 18 1:40am Power of Clinical Account Specialist No April 18, 2022 1:40am Advance Directive Response Recorded Date/ Time Advance Directives No January 13, 2020 2:59pm Living Will No May 21 023 1:36am Power of Clinical Account Specialist No May 21, 2022 1:36am Advance Directive Response Recorded Date/ Time Advance Directives No January 13, 2020 2:59pm Living Will No April 25 3:42pm Power of Clinical Account Specialist No April 25, 2023 3:42pm Advance Directive Response Recorded Date/ Time Advance Directives No January 13, 2020 2:59pm Living Will No May 24 024 12:27am Power of Clinical Account Specialist No May 24, 2023 12:27am Advance Directive Response Recorded Date/ Time Living Will No August 23, 2023 6 :30pm Do you have a Healthcare Power of Clinical Account Specialist? No August 23, 2023 6:30pm Advance Directives on File No Janua 2024 8:15am Living Will No April 20 8:15am Do you have a Healthcare Power of Clinical Account Specialist? No April 20, 2024 8:15am Advance Directives No April 20, 2024 8:15am Living Will No May 21 025 8:31pm Do you have a Healthcare Power of Clinical Account Specialist? No May 21, 2024 8:31pm Advance Directive Response Recorded Date/ Time Living Will No August 23, 2023 6 :30pm Do you have a Healthcare Power of Clinical Account Specialist? No August 23, 2023 6:30pm Living Will No May 21 2 025 8:31pm Do you have a Healthcare Power of Clinical Account Specialist? No May 21, 2024 8:31pm Living Will No June 18, 2024 6:24am Do you have a Healthcare Power of Clinical Account Specialist? No June 18, 2024 6:24am Do you have a Healthcare Power of Clinical Account Specialist? No July 29, 2024 8:08pm Advance Directives No April 20, 2024 8:15am Advance Directive Response Recorded Date/ Time Living Will No August 23, 2023 6 :30pm Do you have a Healthcare Power of Clinical Account Specialist? No August 23, 2023 6:30pm Do you have a Healthcare Power of Clinical Account Specialist? No September 18, 2024 10:00am Living Will No May 21, 8:31pm Do you have a Healthcare Power of Clinical Account Specialist? No May 21, 2024 8:31pm Living Will No June 18, 2024 6:24am Do you have a Healthcare Power of Clinical Account Specialist? No June 18, 2024 6:24am Do you have a Healthcare Power of Clinical Account Specialist? No July 29, 2024 8:08pm Advance Directives No April 20, 2024 8:15am Advance Directive Response Recorded Date/ Time Living Will No August 23, 2023 6 :30pm Do you have a Healthcare Power of Clinical Account Specialist? No August 23, 2023 6:30pm Do you have a Healthcare Power of Clinical Account Specialist? No September 18, 2024 3:22pm Living Will No June 18, 2024 6:24am Do you have a Healthcare Power of Clinical Account Specialist? No June 18, 2024 6:24am Do you have a Healthcare Power of Clinical Account Specialist? No July 29, 2024 8:08pm Advance Directives No April 20, 2024 8:15am Advance Directive Response Recorded Date/ Time Living Will No August 23, 2023 6 :30pm Do you have a Healthcare Power of Clinical Account Specialist? No August 23, 2023 6:30pm Do you have a Healthcare Power of Clinical Account Specialist? No September 18, 2024 3:22pm Do you have a Healthcare Power of Clinical Account Specialist? No October 19, 2024 6:36pm Do you have a Healthcare Power of Clinical Account Specialist? No July 29, 2024 8:08pm Advance Directives No April 20, 2024 8:15am Advance Directive Response Recorded Date/ Time Living Will No August 23, 2023 6 :30pm Do you have a Healthcare Power of Clinical Account Specialist? No August 23, 2023 6:30pm Do you have a Healthcare Power of Clinical Account Specialist? No September 18, 2024 3:22pm Do you have a Healthcare Power of Clinical Account Specialist? No October 19, 2024 6:36pm Do you have a Healthcare Power of Clinical Account Specialist? Yes October 21, 2024 4:34pm Do you have a Healthcare Power of Clinical Account Specialist? No July 29, 2024 8:08pm Advance Directives No April 20, 2024 8:15am Advance Directive Response Recorded Date/ Time Living Will No August 23, 2023 6 :30pm Do you have a Healthcare Power of Clinical Account Specialist? No August 23, 2023 6:30pm Do you have a Healthcare Power of Clinical Account Specialist? No September 18, 2024 3:22pm Do you have a Healthcare Power of Clinical Account Specialist? No October 19, 2024 6:36pm Do you have a Healthcare Power of Clinical Account Specialist? Yes October 21, 2024 4:34pm Do you have a Healthcare Power of Clinical Account Specialist? No July 29, 2024 8:08pm Do you have a Healthcare Power of Clinical Account Specialist? Yes October 23, 2024 6:04pm Advance Directives No April 20, 2024 8:15am Advance Directive Response Recorded Date/ Time Living Will No August 23, 2023 6 :30pm Do you have a Healthcare Power of Clinical Account Specialist? No August 23, 2023 6:30pm Do you have a Healthcare Power of Clinical Account Specialist? No September 18, 2024 3:22pm Do you have a Healthcare Power of Clinical Account Specialist? No October 19, 2024 6:36pm Do you have a Healthcare Power of Clinical Account Specialist? Yes October 21, 2024 4:34pm Do you have a Healthcare Power of Clinical Account Specialist? No July 29, 2024 8:08pm Do you have a Healthcare Power of Clinical Account Specialist? Yes October 23, 2024 6:04pm Do you have a Healthcare Power of Clinical Account Specialist? No October 26, 2024 11:37pm Advance Directives No April 20, 2024 8:15am Advance Directive Response Recorded Date/ Time Living Will No August 23, 2023 6 :30pm Do you have a Healthcare Power of Clinical Account Specialist? No August 23, 2023 6:30pm Do you have a Healthcare Power of Clinical Account Specialist? No September 18, 2024 3:22pm Do you have a Healthcare Power of Clinical Account Specialist? No October 19, 2024 6:36pm Do you have a Healthcare Power of Clinical Account Specialist? Yes October 21, 2024 4:34pm Do you have a Healthcare Power of Clinical Account Specialist? No November 10, 2024 4:22pm Do you have a Healthcare Power of Clinical Account Specialist? No July 29, 2024 8:08pm Do you have a Healthcare Power of Clinical Account Specialist? Yes October 23, 2024 6:04pm Do you have a Healthcare Power of Clinical Account Specialist? No October 26, 2024 11:37pm Advance [...] diabetes mellitus Stenosis of right carotid artery [id number] Nicotine dependence Chief Complaint 3 M FU Amb Documentation LOWER lung cancer screening SCREENING 3 M FU NSTEMI Reason for Visit Essential (primary) hypertension Insulin dependent diabetes mellitus Stenosis of right carotid artery [id number] Nicotine dependence Essential (primary) hypertension Hyperlipidemia Insulin dependent diabetes mellitus H/O coronary artery bypass surgery NSTEMI, initial episode of care Insulin dependent diabetes mellitus Nicotine dependence Chief Complaint LOWER lung cancer screening SCREENING 3 M FU NSTEMI NSTEMI NSTEMI NSTEMI [facility] FU- HEART ATTACK s/p [facility] ED NSTEMI 1-14 lower extrem Reason for Visit [id number] Nicotine dependence Essential (primary) hypertension Hyperlipidemia Insulin [...] 3 M FU NSTEMI NSTEMI NSTEMI NSTEMI [facility] FU- HEART ATTACK s/p [facility] ED NSTEMI 1-14 lower extrem EORDER Reason for Visit [id number] Nicotine dependence Essential (primary) hypertension Hyperlipidemia Insulin [...] hypertension Insulin dependent diabetes mellitus Nicotine dependence [id number] Nicotine dependence Chief Complaint Admit Date 3-4 M FU February 24, 2024 11:07am 3 M FU February 24, 2024 12:58pm PVD, OPEN WOUND March 09, 2024 9 :11am 4-5 WK FU March 22, 2024 10:47am Peripheral vascular disease, unspecified March 29, 2024 1:23pm 6 M FU April 01, 2024 9:49am Discuss CTA results April 08, 2024 12 :56pm Atherosclerosis of [place] arteries of [place] April 20, 2024 6:47am Atherosclerosis of [place] arteries of [place] ght leg [place] April [...] 2023 12:58pm Insulin dependent diabetes mellitus [facility] 2023 12:58pm Nicotine dependence February 24, 2024 [...] [place] PD June 20, 2024 10:58am S/P [facility] 06/21July 12, 2024 9:51 am Discuss [...] 2024 9:55am Chief Complaint Admit Date S/P [facility] 06/21July 12, 2024 9:51 am Discuss [...] 2024 9:55am Chief Complaint Admit Date S/P [facility] 06/21July 12, 2024 9:51 am Discuss [...] November 03, 2024 10:1 5am 3 M FU/[facility] ER FU November 04, 2024 1:3 [...] November 03, 2024 10:1 5am 3 M FU/[facility] ER FU November 04, 2024 1:3 [...] November 03, 2024 10:1 5am 3 M FU/[facility] ER FU November 04, 2024 1:3 [...] Yamilka Parekh MD [address] [place] [address] [address] Imaging Referral ID Status Reason Start Date Expiration Date Visits Requested Visits Authorized [id number] Additional Clinical Info Needed Auto-Generat ed Referral 01/06/2022 02/05/2023 1 1 Specialty Diagnoses / Procedures Referred By David rausch Referred To Contact CT IMAGING Diagnoses Left groin pain Procedures CT PELVIS WO IVCON CT PELVIS W/O CONTRAST MATERIAL Yamilka Parekh MD [address] [place] [address] [place] [address] Referral ID Status Reason Start Date Expiration Date V isits Requested Visits Authorized [id number] Closed Auto-Generate d Referral 01/06/2022 03/16/2022 2 2 Summary Purpose Additional Source Comments Source Comments (unrecognize d section and content) In the event this informatio n is protected by the Federal Confidentiality of Alcohol and Drug Abuse Patient Records regulations: The Federal rules restrict any use of the information to criminally investigate or prosecute any alcohol or drug abuse patient.[facility] [place] the event this information is protected by the Federal Confidentiality of Alcohol and Drug Abuse Patient Records regulations: The Federal rules restrict any use of the information to criminally investigate or prosecute any alcohol or drug abuse patient.[facility] [place] the event this information is protected by the Federal Confidentiality of Alcohol and Drug Abuse Patient Records regulations: The Federal rules restrict any use of the information to criminally investigate or prosecute any alcohol or drug abuse patient.[facility] [place] the event this information is protected by the Federal Confidentiality of Alcohol and Drug Abuse Patient Records regulations: The Federal rules restrict any use of the information to criminally investigate or prosecute any alcohol or drug abuse patient.[facility] [place] the event this information is protected by the Federal Confidentiality of Alcohol and Drug Abuse Patient Records regulations: The Federal rules restrict any use of the information to criminally investigate or prosecute any alcohol or drug abuse patient.[facility] [place] the event this information is protected by the Federal Confidentiality of Alcohol and Drug Abuse Patient Records regulations: The Federal rules restrict any use of the information to criminally investigate or prosecute any alcohol or drug abuse patient.[facility] [place] the event this information is protected by the Federal Confidentiality of Alcohol and Drug Abuse Patient Records regulations: The Federal rules restrict any use of the information to criminally investigate or prosecute any alcohol or drug abuse patient.[facility] Reason for Visit (unrecogniz ed section and [...] Yamilka Parekh MD [address] [place] [address] [place] [address] Referral ID Status Reason Start Date Expiration Date V isits Requested Visits Authorized [id number] Closed Auto-Generate d Referral 01/06/2022 03/16/2022 2 [...] Care Teams (unrecognized sec tion and content) Regulatory Affairs Assistant Relationship Specialty Start Date End Date Xiang Rogers, DO [address] [place] [address] PCP - General Family Medicine 01/03/22 Regulatory Affairs Assistant Relationship Specialty Start Date End Date Xiang Rogers DO [address] [place] [address] PCP - General Family Medicine 01/03/22 Regulatory Affairs Assistant Relationship Specialty Start Date End Date Xiang Rogers DO [address] [place] [address] PCP - General Family Medicine 01/03/22 Team [...] DO Primary Care Provider Active Kimberli Mora REFRIGERATION SPECIALIST, REFRIGERATION SPECIALIST-C Attending Provider, Referring Provider Active Team Status: [...] Provider, Referr ing Provider Active Dean Pena REFRIGERATION SPECIALIST, REFRIGERATION SPECIALIST-C Attending Provider Active Team Status: Inactive Member [...] DO Primary Care Provider Active Dean Pena REFRIGERATION SPECIALIST, REFRIGERATION SPECIALIST-C Attending Provider, Referring Pro vider Active Regulatory Affairs Assistant Relationship Specialty Start Date End Date Xiang Rogers DO [address] [place] [address] PCP - General Family Medicine 01/03/22 Regulatory Affairs Assistant Relationship Specialty Start Date End Date Xiang Rogers DO [address] [place] [address] PCP - General Family Medicine 01/03/22 Team Status: Inactive Member Role Status Dates Dr. Xiang Rogers DO Primary Care Provider Active Dr. Chaya nKight MD Emergency Provider Active Team Status: Inactive Member Role Status Dates Dr. Xiang Rogers DO Primary Care Provider Active Dr. Saúl Aguilar , DO Emergency Provider Active Team Status: Inactive Member Role Status Dates Dr. Xiang Rogers DO Primary Care Provider, Referr ing Provider Active Kimberli Mora REFRIGERATION SPECIALIST, REFRIGERATION SPECIALIST-C Attending Provider Active Team Status: Inactive Member Role Status Dates Dr. Xiang Rogers DO Primary Care Provider Active Dr. Saúl Aguilar DO Attending Provider, Emergency P gino Active Regulatory Affairs Assistant Relationship Specialty Start Date End Date Xiang Rogers DO [address] [place] [address] PCP - General Family Medicine 01/03/22 Team [...] 2024 End: June 20, 2024 Dean Pena REFRIGERATION SPECIALIST, REFRIGERATION SPECIALIST-C Other Provider Active Start : June 18, [...] Active Start: June 19, 2024 Dean Pena REFRIGERATION SPECIALIST, REFRIGERATION SPECIALIST-C Other Provider Active Start : June 19, [...] Active Start: June 19, 2024 Dr. Abisai Falrey MD Other Provider Active S tart: June 19, 2024 Dr. Riki Shay MD Other Provider Active Start: June 19, 2024 Dean Pena REFRIGERATION SPECIALIST, REFRIGERATION SPECIALIST-C Other Provider Active Start : June 19, [...] Active Start: June 20, 2024 Dean Pena REFRIGERATION SPECIALIST, REFRIGERATION SPECIALIST-C Other Provider Active Start : June 20, [...] Active Start: June 20, 2024 Dean Pena REFRIGERATION SPECIALIST, REFRIGERATION SPECIALIST-C Other Provider Active Start : June 20, [...] 2024 End: July 12, 2024 Ronit Galvez REFRIGERATION SPECIALIST, REFRIGERATION SPECIALIST-C Attending Provider Active Start: July 12, 2024 [...] Provider Active Start: September 18, 2024 Dr. Clinotn Soares , DO Other Provider Active Start: [...] 2024 End: July 12, 2024 Ronit Galvez REFRIGERATION SPECIALIST, REFRIGERATION SPECIALIST-C Attending Provider Active Start: July 12, 2024 [...] 29, 2024 End: July 29, 2024 Dr. aLwson Castellon DO Emergency Provider Active Start : [...] Provider Active S tart: September 08, 2024 NILOSN Heck Referring Provider Active Star t: September [...] 18, 2024 End: September 21, 2024 Dr. Steh Carrington , DO Other Provider Active S [...] DATE CREATED AUTHOR AUTHOR'S ORGANIZ ATION 11/05/2024 [facility] FOR RECORDS PERTAINING TO PATIENTS WHO ARE [...] BE BASED ON THE PRIMARY CLINICAL RECORDS. [facility]. provides no warranty or guarantee of the accuracy or completeness of information in this document.
--- NOTE | 2024-11-11 07:41 | PCM.PN.HOSP ---
Reason for Visit Chief Complaint: Dyspnea, orthopnea, increased weight gain, increased distal edema. Subjective Subjective Patient is a 64-year-old gentleman who presented with a week history of progressive shortness of breath with bilateral lower extremity edema Objective Data Objective Data Vital Signs: Vital Signs Temp Pulse Resp BP Pulse Ox O2 Del Method O2 Flow Rate 97.6 F L 103 H 19 H 115/78 97 Nasal Cannula 2.5 11/11/24 02:44 11/11/24 02:44 11/11/24 02:44 11/11/24 02:44 11/11/24 02:44 11/11/24 02:44 11/11/24 02:44 Oxygen Flow Rate (L/min) 2.5 Oxygen Delivery Method Nasal Cannula Weight: 95 kg Body Mass Index (BMI) 29.2 Intake & Output: Intake and Output for Last 24 Hours 11/09/24 11/10/24 11/11/24 23:59 23:59 23:59 Output Total 300 / 300 Balance -300 / -300 Lab / Micro Data 11/11/24 05:34 11/11/24 05:34 Labs: Laboratory Results - last 24 hr 11/10/24 16:15: WBC 8.6, RBC 4.43 L, Hgb 13.3, Hct 41.6, MCV 93.9, MCH 30.0, MCHC 32.0, RDW Std Deviation 48.4 H, RDW Coeff of Maycol 14.2, Plt Count 336, MPV 9.3, Immature Gran % (Auto) 0.300, Neut % (Auto) 69.7, Lymph % (Auto) 20.2, [place] % (Auto) 8.0, Eos % (Auto) 1.5, Baso % (Auto) 0.3, Absolute Neuts (auto) 6.0, Absolute Lymphs (auto) 1.74, Nucleated RBC % 0, Sodium 136, Potassium 3.7, Chloride 101, Carbon Dioxide 23.1, Anion Gap 12, BUN 24 H, Creatinine 1.19, Est GFR (MDRD) Non-Af 68, BUN/Creatinine Ratio 20.3 H, Glucose 174 H, Calcium 8.8, Magnesium 2.0, Troponin T High Sens 42 H D, NT pro BNP II 9141 H 11/10/24 17:53: Troponin T Hi Sens 2 Hr 37 H 11/10/24 21:22: POC Glucose 123 H 11/10/24 21:35: Troponin T Hi Sens 4Hr 36 H 11/11/24 05:34: WBC 8.0, RBC 4.42 L, Hgb 13.3, Hct 40.7, MCV 92.1, MCH 30.1, MCHC 32.7, RDW Std Deviation 47.8 H, RDW Coeff of Maycol 14.3, Plt Count 332, MPV 9.4, Immature Gran % (Auto) 0.300, Neut % (Auto) 70.7 H, Lymph % (Auto) 19.7, [place] % (Auto) 7.6, Eos % (Auto) 1.3, Baso % (Auto) 0.4, Absolute Neuts (auto) 5.7, Absolute Lymphs (auto) 1.57, Nucleated RBC % 0, Sodium 136, Potassium 3.9, Chloride 101, Carbon Dioxide 20.4 L, Anion Gap 14, BUN 22 H, Creatinine 1.16, Estim Creat Clear Calc 75.69, Est GFR (MDRD) Non-Af 70, BUN/Creatinine Ratio 19.0, Glucose 159 H, Calcium 9.0, Total Bilirubin 0.71, AST 29, ALT 18, Alkaline Phosphatase 124, Total Protein 6.7, Albumin 3.6, Globulin 3.1, Albumin/Globulin Ratio 1.2, Triglycerides 84, Cholesterol 64, LDL Cholesterol, Calc 3, VLDL Cholesterol 17, HDL Cholesterol 44, Cholesterol/HDL Ratio 1.45 11/11/24 06:31: POC Glucose 223 H Micro: Microbiology 11/10/24 16:55 Mucosa - Nose SARS-CoV-2, Influenza & RSV (PCR) - Final ABG Data ABG results: ABG 11/10/24 21:05 Specimen Type ART Sample Site L Radial pH 7.48 H Bicarbonate Actual 23.5 Total CO2 25 Base Excess 0 O2 Saturation 97 O2 % 2.0 ABG pCO2 31.3 L ABG pO2 85 Clement Test Positive O2 Delivery Device Cannula Vent Mode Not entered Radiography Diagnostic Testing: Radiology Impression Chest X-Ray 11/10/24 17:00 IMPRESSION: Cardiomegaly with vascular congestion, interstitial edema, and small bibasilar pleural effusions/atelectasis, greater on the right. Increased from prior exam. Reading Location: [facility] Physical Exam Narrative GENERAL: cooperative HEENT: Atraumatic; normocephalic EYES; Anicteric, Normal Conjunctiva NECK; supple, normal thyroid, RESPIRATORY: Diminished to auscultation CARDIOVASCULAR: Regular S1 S2, GI: soft, normoactive bowel sounds, : No Renal angle tenderness; EXTREMITIES: muna edema, no clubbing, MUSCULOSKELETAL: no muscle wasting NEURO: Awake; no lateralizing signs. SKIN: Bilateral lower extremity stasis dermatitis PSYCH; Flat affect Assessment & Plan Assessment/Plan (1) Acute HFrEF (heart failure with reduced ejection fraction): PLAN: Plan Patient is a 64-year-old gentleman who presented with a week history of progressive shortness of breath with bilateral lower extremity edema 1. Acute on chronic congestive heart failure with reduced ejection fraction ? Echo from 09/18/2024 demonstrated LVEF of 35% with akinetic apex and severely hypokinetic mid anterior region. Patient presented with exertional dyspnea bilateral lower extremity edema and was found to have elevated proBNP and assessment of acute decompensated CHF made. Patient admitted to monitored bed continue strict input and output, daily weight, low-sodium diet, fluid restriction as well as diuretic therapy with furosemide 2. Coronary artery disease ? With previous CABG patient is on guideline directed medical therapy except for statin due to intolerance 3. COPD ? Aerosol treatments as needed 4. Peripheral arterial disease with known history of carotid artery stenosis ? Status post CEA 5. Diabetes mellitus type II -patient's oral hypoglycemics held. Placed on long acting insulin, Accu-Cheks a.c. and at bedtime and covered with sliding scale insulin. Patient glucose control not optimal adjusted long-acting insulin dose 6. GERD ? On PPI 7. Hypertension ? Blood pressure controlled, home medications continued with dose adjustment as needed 8. Dyslipidemia ? Patient apparently has intolerance to statin therapy currently on Repatha discontinued 9. Tobacco dependence ? Counseled on cessation, offered nicotine patch for tobacco cravings 10. History of previous CVA ? With residual mild facial droop. Patient is on dual antiplatelet therapy did continue 11. DVT prophylaxis ? Subcu Lovenox Time spent in the patient's overall evaluation,decision-making process, review of diagnostic data, adjustment of management, discussion with other providers, nursing nursing and ancillary staff involved in patient's care documentation, 50 Minutes Charges/Coding Visit Charges Inpatient E&M: 58659 Subs Hosp L3
[2024-11-11] MEDS: 0.9% Saline Lock 10 ML Syringe IV ×3 (08:49→21:47)
[2024-11-11] MEDS: Insulin Glargine-YFGN 100 UNIT/ML Pen 20 UNIT SC ×2 (08:50→21:47)
--- NOTE | 2024-11-11 11:10 | CASEMGMT ---
VICKI RIVERA Face to Face with patient for initial transition planning/care coordination assessment. RN CM introduced self and role at [facility]. Patient sitting in chair, alert and oriented. Patient willing to participate in assessment and is able to answer all questions appropriately. Care providers, pharmacy, and demographics verified. PCP: Joaquin Specialists: KETURAH, tassel maker; Preferred Pharmacy: [facility] retail Insurance: [employer], [employer] Prescription Benefit: yes Living Will/HPOA: no but is working on completing LNOK: daughter Living Arrangements: Patient lives with grandson in a single story home with 3 steps and railing to enter the home. Patient is independent at home. Transportation: self, daughter, ex- DME/HHC: Patient denies DME at home. Patient would like shower chair and walker at discharge. VICKI RIVERA to assist with script for shower chair to take to agency of choice. Will monitor for home oxygen at discharge. Patient prefers [employer] for walker and home oxygen if needed. Patient wishes to discharge home, denies need for home health at this time. Patient states he has no further needs or concerns at this time. CM to follow for discharge planning needs that may arise. Green sheet placed on chart for walker at discharge and possible home oxygen if needed. Script for shower chair placed in chart to provide to patient at discharge. Disposition Plan: Patient to discharge home with family support and follow-up plans in place. Shyann WEISS, RN, CM
--- NOTE | 2024-11-11 11:10 | CASEMGMT ---
VICKI RIVERA Face to Face with patient for initial transition planning/care coordination assessment. RN CM introduced self and role at [facility]. Patient sitting in chair, alert and oriented. Patient willing to participate in assessment and is able to answer all questions appropriately. Care providers, pharmacy, and demographics verified. PCP: Joaquin Specialists: KETURAH, postulant; Preferred Pharmacy: [facility] retail Insurance: [employer], [employer] Prescription Benefit: yes Living Will/HPOA: no but is working on completing LNOK: daughter Living Arrangements: Patient lives with grandson in a single story home with 3 steps and railing to enter the home. Patient is independent at home. Transportation: self, daughter, ex- DME/HHC: Patient denies DME at home. Patient would like shower chair and walker at discharge. VICKI RIVERA to assist with script for shower chair to take to agency of choice. Will monitor for home oxygen at discharge. Patient prefers [employer] for walker and home oxygen if needed. Patient wishes to discharge home, denies need for home health at this time. Patient states he has no further needs or concerns at this time. CM to follow for discharge planning needs that may arise. Green sheet placed on chart for walker at discharge and possible home oxygen if needed. Script for shower chair placed in chart to provide to patient at discharge. Disposition Plan: Patient to discharge home with family support and follow-up plans in place. Shyann WEISS, RN, CM
--- NOTE | 2024-11-11 11:46 | WOUNDNOTE ---
Pt sitting up in chair with legs dependent. Pt refused NYDIA wraps last evening. encouraged compression and elevation of the legs. Pt states it's too uncomfortable. will assess legs better after visitors leave. will come back after pt eats lunch.
--- NOTE | 2024-11-11 13:25 | CHAPLAIN ---
Type of Pastoral Visit _x__ Initial Visit ___ Follow-up Visit ___ On-call Visit ___ General Patient Visit ___ Spiritual Assessment ___ Family Conference ___ Bereavement ___ Rapid Response ___ Code Blue ___ Other (describe below) Pastoral Care Referral From _x__ Patient ___ Family ___ Nurse ___ Physician ___ Pressure Control Supervisor ___ Food Products Sales Representative ___ Other (describe below) Sacrament/Intervention _x__ Active listening ___ Anointing ___ Uatsdin ___ Bereavement ___ Communion _x__ Nadine exploration ___ _x__ Life review ___ Prayer ___ Reconciliation ___ Sacrament of Sick _x__ Supportive presence ___ Wedding ___ Other (describe below) Pastoral Comments meeting the patient and asking questions leads to very little acknowledgement of needs or concerns; when pat is asked about his coping since of his and how he is taking care of the 8 yr-old adopted son, he responds I just dont' think about those things and I just go on; family members arrive into room and take over the conversation and continue talking until they leave; then patient states that he is fine and has no further needs
--- NOTE | 2024-11-11 14:20 | WOUNDNOTE ---
skin photo: left lower leg
--- NOTE | 2024-11-11 14:20 | WOUNDNOTE ---
skin photo: left lower leg
--- NOTE | 2024-11-11 14:21 | WOUNDNOTE ---
skin photo: left lower leg
--- NOTE | 2024-11-11 14:21 | WOUNDNOTE ---
skin photo: left lower leg
--- NOTE | 2024-11-11 14:22 | WOUNDNOTE ---
skin photo: right lower leg
--- NOTE | 2024-11-11 14:22 | WOUNDNOTE ---
skin photo: right lower leg
--- NOTE | 2024-11-11 18:21 | CON.PCM.CA_ITS ---
Assessment & Plan Assessment/Plan (1) H/O coronary artery bypass surgery: (2) Essential (primary) hypertension: (3) Hyperlipidemia: QUALIFIERS: Hyperlipidemia type: mixed hyperlipidemia Qualified Code(s): E78.2 - Mixed hyperlipidemia (4) Stenosis of right carotid artery: (5) Nicotine dependence: QUALIFIERS: Nicotine product type: cigarettes Substance use status: uncomplicated Qualified Code(s): F17.210 - Nicotine dependence, cigarettes, uncomplicated (6) Acute on chronic HFrEF (heart failure with reduced ejection fraction): PLAN: Cardiac care plan recommendations; 64-year-old patient with extensive cardiac history had a history of CAD with CABG in 2006 Cardiac catheterization in 2022 revealed patent ALMANZAR to LAD, patent LOGAN to RCA Occluded sequential graft of SVG to OM1 and diagonal. Has multiple other medical comorbidities with history of previous stroke history of peripheral vascular disease with right carotid endarterectomy. Recently noted worsening of his LV function with ejection fraction now around 35%. Symptoms of shortness of breath improving on the current treatment with the IV diuretic with Lasix. I reviewed all his current evaluation including his current medication. The EKG and the personnel monitor showed normal sinus rhythm. proBNP level was significantly elevated on this admission. Responding well to the current diuretic and diuresis as well. Cardiac plan and recommendations; Will adjust the current medication to guideline directed medical therapy in the form of Entresto, Farxiga, Aldactone his renal function is within normal. On Lasix as needed. Also patient will require protective services social worker as he has been at home and has some difficulty with his medication as per his last visit on the cardiology office. Once stable to follow-up with his primary elementary math tutor for continuation of cardiac care to discuss long-term plan possible ICD/BiV pacer. Buck Trevino MD,[facility] electrical and instrumentation mechanic HPI Consult Data Date of Consult: 11/11/24 HPI Narrative Reason for Consultation: Acute on chronic systolic heart failure/HFrEF HPI Narrative: KANA MEJIA, is a 64 M who presents [facility] Medical History (Updated 11/10/24 @ 19:[address] Corazon Diaz MD) History of CVA (cerebrovascular accident) Cardiac LV ejection fraction 30-35% GERD (gastroesophageal reflux disease) Anxiety High blood cholesterol Diabetes mellitus Emphysema, unspecified COPD (chronic obstructive pulmonary disease) Decreased left ventricular function Encounter for screening for malignant neoplasm of lung in current smoker with 30 pack year history or greater Stenosis of right carotid artery Insulin dependent diabetes mellitus History of non-ST elevation myocardial infarction (NSTEMI) (06/11/18) Emphysema lung Asthma Type 2 diabetes mellitus Arthritis Pancreatitis GERD (gastroesophageal reflux disease) Nicotine dependence Atherosclerosis of coronary artery of [place] heart without angina pectoris Hyperlipidemia Essential (primary) hypertension Home Medications ?Medication ?Instructions ?Recorded ?Last Taken ?Type blood sugar diagnostic (FreeStyle #50 ea 04/02/21 Unkn own Rx Test strips) blood-glucose meter (FreeStyle #1 ea 04/02/21 Unknown Rx System Kit) lancets 28 gauge (FreeStyle #50 ea 04/02/21 Unknown Rx Lancets) pen needle, diabetic 31 gauge x #100 ea 04/02/21 Unkno wn Rx 3/16 (1st Tier Unifine Pentips Plus) Handicap placard #1 ea 07/22/23 Unknown Rx pen needle, diabetic 31 gauge x #100 ea 10/28/23 Unkno wn Rx 5/16 (Comfort EZ Pen [place]) evolocumab 140 mg/mL subcutaneous 140 mg subcut Q2W ch olesterol #6 mL 05/09/24 09/12/24 Rx pen injector (Repatha SureClick) insulin glargine 100 unit/mL (3 20 unit subcut DAILY D iabetes 06/17/24 09/18/24 History mL) subcutaneous pen (Lantus Solostar U-100 Insulin) omeprazole 20 mg capsule,delayed 20 mg PO DAILY reflux #90 caps 09/13/24 09/18/24 Rx release fluticasone propionate 50 2 spray intranasal DAILY PRN nasal 09/18/24 Unknown History mcg/actuation nasal congestion spray,suspension (Flonase Allergy Relief) nitroglycerin 0.4 mg sublingual 0.4 mg sublingual Q5M PRN 09/27/24 Unknown Rx tablet Cardiac/Chest Pain #25 tabs aspirin 81 mg chewable tablet 81 mg PO BREAKFAST preve ntative 11/03/24 Unknown Rx #90 tabs clopidogrel 75 mg tablet 75 mg PO DAILY antiplatelet #90 11/03/24 Unknown Rx tabs dapagliflozin propanediol 10 mg 10 mg PO DAILY diabete s #90 TABLETS 11/03/24 Unknown Rx tablet (Farxiga) ezetimibe 10 mg tablet 10 mg PO DAILY cholesterol # 90 tabs 11/03/24 Unknown Rx furosemide 40 mg tablet 40 mg PO DAILY diuretic #90 tabs 11/03/24 Unknown Rx albuterol sulfate 90 mcg/actuation 2 puff inhalation Q 4H PRN 11/04/24 Unknown Rx aerosol inhaler shortness of breath or wheez ing #6.7 grams mometasone-formoterol HFA 100 2 puff inhalation BID CO PD #13 11/04/24 Unknown Rx mcg-5 mcg/actuation aerosol grams inhaler (Dulera) spironolactone 25 mg tablet 25 mg PO DAILY diuretic #3 0 tabs 11/04/24 Unknown Rx Allergy/AdvReac Type Severity Reaction Status Date / Time amoxicillin Allergy Angioedema Verified 11/10/24 14:50 lindane Allergy Rash Verified 11/10/24 14:50 Family History Father Asthma Alcoholism Arthritis Heart disease Hypertension High cholesterol CVA (cerebral vascular accident) Lung cancer Grandfather Myocardial infarction Family History other Surgical History S/P CABG x 4 History of hernia repair History of carotid endarterectomy (01/06/14) H/O coronary artery bypass surgery (2006) History of left heart catheterization (06/11/18) Social History (Updated 11/10/24 @ 19:[address] Corazon Diaz MD) household members: none Smoking Status: Light Smoker (<10/day) Tobacco: How many years used: 45 Electronic Cigarette Use: not used second hand exposure: Yes quit status: considering quitting alcohol intake: never substance use type: does not use caffeine: Yes Type: coffee Number of servings: 5 what type of physical activity do you participate in: none Physical Exam Cardio Cardio Narrative: I saw this patient at bedside Sitting out in the chair. Shortness of breath improving. Cardiac rhythm sinus rhythm Cardiac exam S1-S2 regular Chest exam diminished air entry bilateral Examination lower extremity +3 lower extremity edema. Risk Stratification Risk Stratification Applicable: No Objective Data Vital Signs: Vital Signs Temp Pulse Resp BP Pulse Ox O2 Del Method O2 Flow Rate 97.1 F L 92 18 106/77 98 Nasal Cannula 2 11/11/24 17:41 11/11/24 17:41 11/11/24 17:41 11/11/24 17:41 11/11/24 17:41 11/11/24 17:41 11/11/24 17:41 Oxygen Flow Rate (L/min) 2 Oxygen Delivery Method Nasal Cannula Weight: 209 lb 7.026 oz Body Mass Index (BMI) 29.2 Intake & Output: Intake and Output for Last 24 Hours 11/09/24 11/10/24 11/11/24 23:59 23:59 23:59 Intake Total 1000 / 1000 Output Total 1825 / 1825 Balance -825 / -825 Lab / Micro Data 11/11/24 05:34 11/11/24 05:34 Labs: Laboratory Results - last 24 hr 11/10/24 16:15: Magnesium 2.0 11/10/24 17:53: Troponin T Hi Sens 2 Hr 37 H 11/10/24 21:22: POC Glucose 123 H 11/10/24 21:35: Troponin T Hi Sens 4Hr 36 H 11/11/24 05:34: WBC 8.0, RBC 4.42 L, Hgb 13.3, Hct 40.7, MCV 92.1, MCH 30.1, MCHC 32.7, RDW Std Deviation 47.8 H, RDW Coeff of Maycol 14.3, Plt Count 332, MPV 9.4, Immature Gran % (Auto) 0.300, Neut % (Auto) 70.7 H, Lymph % (Auto) 19.7, [place] % (Auto) 7.6, Eos % (Auto) 1.3, Baso % (Auto) 0.4, Absolute Neuts (auto) 5.7, Absolute Lymphs (auto) 1.57, Nucleated RBC % 0, Sodium 136, Potassium 3.9, Chloride 101, Carbon Dioxide 20.4 L, Anion Gap 14, BUN 22 H, Creatinine 1.16, Estim Creat Clear Calc 75.69, Est GFR (MDRD) Non-Af 70, BUN/Creatinine Ratio 19.0, Glucose 159 H, Calcium 9.0, Total Bilirubin 0.71, AST 29, ALT 18, Alkaline Phosphatase 124, Total Protein 6.7, Albumin 3.6, Globulin 3.1, Albumin/Globulin Ratio 1.2, Triglycerides 84, Cholesterol 64, LDL Cholesterol, Calc 3, VLDL Cholesterol 17, HDL Cholesterol 44, Cholesterol/HDL Ratio 1.45 11/11/24 06:31: POC Glucose 223 H 11/11/24 11:51: POC Glucose 164 H 11/11/24 13:47: POC Glucose 221 H 11/11/24 14:46: POC Glucose 242 H 11/11/24 16:38: POC Glucose 186 H Micro: Microbiology 11/10/24 16:55 Mucosa - Nose SARS-CoV-2, Influenza & RSV (PCR) - Final ABG Data ABG results: ABG 11/10/24 21:05 Specimen Type ART Sample Site L Radial pH 7.48 H Bicarbonate Actual 23.5 Total CO2 25 Base Excess 0 O2 Saturation 97 O2 % 2.0 ABG pCO2 31.3 L ABG pO2 85 Clement Test Positive O2 Delivery Device Cannula Vent Mode Not entered Cardiology Labs/Tests 11/10/24 16:15: Magnesium 2.0 11/10/24 21:05: pH 7.48 H, Bicarbonate Actual 23.5, Base Excess 0, O2 Saturation 97, ABG pCO2 31.3 L, ABG pO2 85, Clement Test Positive 11/11/24 05:34: WBC 8.0, RBC 4.42 L, Hgb 13.3, Hct 40.7, MCV 92.1, MCH 30.1, MCHC 32.7, Plt Count 332, MPV 9.4, Immature Gran % (Auto) 0.300, Neut % (Auto) 70.7 H, Lymph % (Auto) 19.7, [place] % (Auto) 7.6, Eos % (Auto) 1.3, Baso % (Auto) 0.4, Absolute Neuts (auto) 5.7, Nucleated RBC % 0, Sodium 136, Potassium 3.9, Chloride 101, Carbon Dioxide 20.4 L, Anion Gap 14, BUN 22 H, Creatinine 1.16, Est GFR (MDRD) Non-Af 70, BUN/Creatinine Ratio 19.0, Glucose 159 H, Calcium 9.0, Total Bilirubin 0.71, Triglycerides 84, Cholesterol 64, VLDL Cholesterol 17, HDL Cholesterol 44, Cholesterol/HDL Ratio 1.45 Rhythm: EKG: ECHO: Stress Test: Cardiac Cath: PCI: CT Surgery: Holter monitor: EPS: PPM: CXR: Chest CT Scan: Radiography Diagnostic Testing: Radiology Impression Chest X-Ray 11/10/24 17:00 IMPRESSION: Cardiomegaly with vascular congestion, interstitial edema, and small bibasilar pleural effusions/atelectasis, greater on the right. Increased from prior exam. Reading Location: [id number]
[2024-11-12 03:45] VITALS: BP 113/59; PULSE 82; RESP 18; TEMP 36.1; O2SAT 97
[2024-11-12 06:34] LABS: Hematocrit 41.4 % (40-54); Hemoglobin 13.3 g/dL (13.0-16.5); Immature Granulocytes Count 0.020 X10^3/uL (0.0-0.0); Mean Corp Hgb Conc 32.1 g/dL (32-36); Mean Corpuscular Volume 92.8 fL (80-94); Mean Platelet Vol. 9.3 fl (6.2-12.0); NRBC Flagged by Analyzer 0 % (0-5); Platelet Count 317 K/mm3 (150-450); RBC Distribution Width CV 14.3 % (11.6-14.6); RBC Distribution Width SD 47.9 fl (35.1-43.9); Red Blood Count 4.46 M/mm3 (4.6-6.2); White Blood Count 6.3 K/mm3 (4.4-11.0)
[2024-11-12 06:53] LABS: Anion Gap 10 (5-15); BUN 24 mg/dL (4-19); BUN/Creat Ratio 21.0 RATIO (10-20); Calcium,Total 9.2 mg/dL (7.6-11.0); Carbon Dioxide 26.9 mmol/L (21.0-32.0); Chloride 99 mmol/L (98-108); Estimated Creatinine Clearance 75.69 ml/min (50-250); Glucose 143 mg/dL (70-99); Magnesium 2.2 mg/dL (1.5-2.2); Potassium 4.2 mmol/L (3.3-5.1)
[2024-11-12] MEDS: Budesonide Respules 0.5 MG/2 ML AMPUL.NEB. INHALATION (07:10)
[2024-11-12 07:11] VITALS: PULSE 85; RESP 18; O2SAT 93
--- NOTE | 2024-11-12 07:18 | PN.HOSP_ITS ---
Reason for Visit Chief Complaint: Dyspnea, orthopnea, increased weight gain, increased distal edema. Subjective Subjective Patient seen continues to diurese well Objective Data Objective Data Vital Signs: Vital Signs Temp Pulse Resp BP Pulse Ox O2 Del Method O2 Flow Rate 97 F L 85 18 113/59 L 93 Nasal Cannula 2 11/12/24 03:45 11/12/24 07:11 11/12/24 07:11 11/12/24 03:45 11/12/24 07:11 11/12/24 07:11 11/12/24 07:11 Oxygen Flow Rate (L/min) 2 Oxygen Delivery Method Nasal Cannula Weight: 95 kg Body Mass Index (BMI) 29.2 Intake & Output: Intake and Output for Last 24 Hours 11/10/24 11/11/24 11/12/24 23:59 23:59 23:59 Intake Total 1720 / 1720 360 / 360 Output Total 3475 / 3475 700 / 700 Balance -1755 / -1755 -340 / -340 Lab / Micro Data 11/12/24 05:40 11/12/24 05:40 Labs: Laboratory Results - last 24 hr 11/11/24 05:34: TSH 0.807 11/11/24 11:51: POC Glucose 164 H 11/11/24 13:47: POC Glucose 221 H 11/11/24 14:46: POC Glucose 242 H 11/11/24 16:38: POC Glucose 186 H 11/11/24 21:44: POC Glucose 218 H 11/12/24 05:40: WBC 6.3, RBC 4.46 L, Hgb 13.3, Hct 41.4, MCV 92.8, MCH 29.8, MCHC 32.1, RDW Std Deviation 47.9 H, RDW Coeff of Maycol 14.3, Plt Count 317, MPV 9.3, Immature Gran % (Auto) 0.300, Neut % (Auto) 60.3, Lymph % (Auto) 25.4, [place] % (Auto) 9.9, Eos % (Auto) 3.6, Baso % (Auto) 0.5, Absolute Neuts (auto) 3.8, Absolute Lymphs (auto) 1.61, Nucleated RBC % 0, Sodium 137, Potassium 4.2, Chloride 99, Carbon Dioxide 26.9, Anion Gap 10, BUN 24 H, Creatinine 1.16, Estim Creat Clear Calc 75.69, Est GFR (MDRD) Non-Af 70, BUN/Creatinine Ratio 21.0 H, G lucose 143 H, Calcium 9.2, Phosphorus 3.2, Magnesium 2.2 11/12/24 06:28: POC Glucose 132 H Micro: Microbiology 11/10/24 16:55 Mucosa - Nose SARS-CoV-2, Influenza & RSV (PCR) - Final Physical Exam Narrative GENERAL: cooperative HEENT: Atraumatic; normocephalic EYES; Anicteric, Normal Conjunctiva NECK; supple, normal thyroid, RESPIRATORY: Diminished to auscultation CARDIOVASCULAR: Regular S1 S2, GI: soft, normoactive bowel sounds, : No Renal angle tenderness; EXTREMITIES: muna edema, no clubbing, MUSCULOSKELETAL: no muscle wasting NEURO: Awake; no lateralizing signs. SKIN: Bilateral lower extremity stasis dermatitis PSYCH; Flat affect Assessment & Plan Assessment/Plan (1) Acute HFrEF (heart failure with reduced ejection fraction): PLAN: Plan Patient is a 64-year-old gentleman who presented with a week history of progressive shortness of breath with bilateral lower extremity edema 1. Acute on chronic congestive heart failure with reduced ejection fraction ? Echo from 09/18/2024 demonstrated LVEF of 35% with akinetic apex and severely hypokinetic mid anterior region. Patient presented with exertional dyspnea bilateral lower extremity edema and was found to have elevated proBNP and assessment of acute decompensated CHF made. Patient admitted to monitored bed continue strict input and output, daily weight, low-sodium diet, fluid restriction as well as diuretic therapy with furosemide ? 11/12/2024; consult was placed to cardiology patient was seen by Dr. Trevino recommended addition of Entresto Farxiga and Aldactone 2. Coronary artery disease ? With previous CABG patient is on guideline directed medical therapy except for statin due to intolerance 3. COPD ? Aerosol treatments as needed 4. Peripheral arterial disease with known history of carotid artery stenosis ? Status post CEA 5. Diabetes mellitus type II -patient's oral hypoglycemics held. Placed on long acting insulin, Accu-Cheks a.c. and at bedtime and covered with sliding scale insulin. Patient glucose control not optimal adjusted long-acting insulin dose 6. GERD ? On PPI 7. Hypertension ? Blood pressure controlled, home medications continued with dose adjustment as needed 8. Dyslipidemia ? Patient apparently has intolerance to statin therapy currently on Repatha discontinued 9. Tobacco dependence ? Counseled on cessation, offered nicotine patch for tobacco cravings 10. History of previous CVA ? With residual mild facial droop. Patient is on dual antiplatelet therapy did continue 11. DVT prophylaxis ? Subcu Lovenox Time spent in the patient's overall evaluation,decision-making process, review of diagnostic data, adjustment of management, discussion with other providers, nursing nursing and ancillary staff involved in patient's care documentation, 40 Minutes Charges/Coding Visit Charges Inpatient E&M: 88015 Subs Hosp L2
[2024-11-12] MEDS: Insulin Glargine-YFGN 100 UNIT/ML Pen 20 UNIT SC ×2 (09:16→21:54)
[2024-11-12] MEDS: 0.9% Saline Lock 10 ML Syringe IV ×2 (09:18→18:00)
[2024-11-12 09:27] VITALS: BP 114/63; PULSE 92; RESP 18; TEMP 36.6; O2SAT 100
[2024-11-12] MEDS: SACUBITRIL/VALSARTAN 24/26 MG TABLET 1 EACH PO ×2 (11:21→21:54)
[2024-11-12 15:27] VITALS: BP 104/66; PULSE 92; RESP 16; TEMP 36.8; O2SAT 100
[2024-11-12 21:52] VITALS: BP 103/70; PULSE 93; RESP 16; TEMP 36.4; O2SAT 100
[2024-11-13 03:16] VITALS: BP 95/60; PULSE 85; RESP 18; TEMP 36.6; O2SAT 99
[2024-11-13 06:00] VITALS: BMI 27.6
[2024-11-13 06:45] LABS: Hematocrit 39.8 % (40-54); Hemoglobin 12.9 g/dL (13.0-16.5); Immature Granulocytes Count 0.030 X10^3/uL (0.0-0.0); Mean Corp Hgb Conc 32.4 g/dL (32-36); Mean Corpuscular Volume 93.2 fL (80-94); Mean Platelet Vol. 9.2 fl (6.2-12.0); NRBC Flagged by Analyzer 0 % (0-5); Platelet Count 321 K/mm3 (150-450); RBC Distribution Width CV 14.1 % (11.6-14.6); RBC Distribution Width SD 47.8 fl (35.1-43.9); Red Blood Count 4.27 M/mm3 (4.6-6.2); White Blood Count 7.4 K/mm3 (4.4-11.0)
[2024-11-13 07:02] LABS: Anion Gap 11 (5-15); BUN 22 mg/dL (4-19); BUN/Creat Ratio 22.2 RATIO (10-20); Calcium,Total 8.8 mg/dL (7.6-11.0); Carbon Dioxide 26.1 mmol/L (21.0-32.0); Chloride 100 mmol/L (98-108); Estimated Creatinine Clearance 89.59 ml/min (50-250); Glucose 98 mg/dL (70-99); Potassium 3.8 mmol/L (3.3-5.1)
[2024-11-13 07:15] VITALS: PULSE 89; RESP 18; O2SAT 94
[2024-11-13] MEDS: Budesonide Respules 0.5 MG/2 ML AMPUL.NEB. INHALATION (07:15)
--- NOTE | 2024-11-13 08:29 | PCM.PN.HOSP ---
Reason for Visit Chief Complaint: Dyspnea, orthopnea, increased weight gain, increased distal edema. Subjective Subjective Patient has experienced on 8 kg weight loss from diuresis since admission. Currently remains on oxygen supplementation 2 L flow per minute. Objective Data Objective Data Vital Signs: Vital Signs Temp Pulse Resp BP Pulse Ox O2 Del Method O2 Flow Rate 98 F 89 18 95/60 94 Nasal Cannula 2 11/13/24 03:16 11/13/24 07:15 11/13/24 07:15 11/13/24 03:16 11/13/24 07:15 11/13/24 08:10 11/13/24 08:10 Oxygen Flow Rate (L/min) 2 Oxygen Delivery Method Nasal Cannula Weight: 89.6 kg Body Mass Index (BMI) 27.6 Intake & Output: Intake and Output for Last 24 Hours 11/11/24 11/12/24 11/13/24 23:59 23:59 23:59 Intake Total 1720 / 1720 1500 / 1500 Output Total 3475 / 3475 2350 / 2350 Balance -1755 / -1755 -850 / -850 Lab / Micro Data 11/13/24 05:13 11/13/24 05:13 Labs: Laboratory Results - last 24 hr 11/12/24 11:24: POC Glucose 154 H 11/12/24 16:20: POC Glucose 201 H 11/12/24 21:51: POC Glucose 253 H 11/13/24 05:13: WBC 7.4, RBC 4.27 L, Hgb 12.9 L, Hct 39.8 L, MCV 93.2, MCH 30.2, MCHC 32.4, RDW Std Deviation 47.8 H, RDW Coeff of Maycol 14.1, Plt Count 321, MPV 9.2, Immature Gran % (Auto) 0.400, Neut % (Auto) 67.3, Lymph % (Auto) 20.0, [place] % (Auto) 8.9, Eos % (Auto) 3.1, Baso % (Auto) 0.3, Absolute Neuts (auto) 5.0, Absolute Lymphs (auto) 1.48, Nucleated RBC % 0, Sodium 137, Potassium 3.8, Chloride 100, Carbon Dioxide 26.1, Anion Gap 11, BUN 22 H, Creatinine 0.98, Estim Creat Clear Calc 89.59, Est GFR (MDRD) Non-Af 86, BUN/Creatinine Ratio 22.2 H, Glucose 98, Calcium 8.8 11/13/24 06:36: POC Glucose 88 Micro: Microbiology 11/10/24 16:55 Mucosa - Nose SARS-CoV-2, Influenza & RSV (PCR) - Final Physical Exam Narrative GENERAL: cooperative HEENT: Atraumatic; normocephalic EYES; Anicteric, Normal Conjunctiva NECK; supple, normal thyroid, RESPIRATORY: Diminished to auscultation CARDIOVASCULAR: Regular S1 S2, GI: soft, normoactive bowel sounds, : No Renal angle tenderness; EXTREMITIES: muna edema, no clubbing, MUSCULOSKELETAL: no muscle wasting NEURO: Awake; no lateralizing signs. SKIN: Bilateral lower extremity stasis dermatitis PSYCH; Flat affect Assessment & Plan Assessment/Plan (1) Acute HFrEF (heart failure with reduced ejection fraction): PLAN: Plan Patient is a 64-year-old gentleman who presented with a week history of progressive shortness of breath with bilateral lower extremity edema 1. Acute on chronic congestive heart failure with reduced ejection fraction ? Echo from 09/18/2024 demonstrated LVEF of 35% with akinetic apex and severely hypokinetic mid anterior region. Patient presented with exertional dyspnea bilateral lower extremity edema and was found to have elevated proBNP and assessment of acute decompensated CHF made. Patient admitted to monitored bed continue strict input and output, daily weight, low-sodium diet, fluid restriction as well as diuretic therapy with furosemide ? 11/12/2024; consult was placed to cardiology patient was seen by Dr. Trevino recommended addition of Entresto Farxiga and Aldactone ? 11/13/2024 patient has experienced on 8 kg weight loss from diuresis since admission. Currently remains on oxygen supplementation 2 L flow per minute. Plan is for patient to be assessed for home oxygen prior to making decision regarding addition 2. Coronary artery disease ? With previous CABG patient is on guideline directed medical therapy except for statin due to intolerance 3. COPD ? Aerosol treatments as needed 4. Peripheral arterial disease with known history of carotid artery stenosis ? Status post CEA 5. Diabetes mellitus type II -patient's oral hypoglycemics held. Placed on long acting insulin, Accu-Cheks a.c. and at bedtime and covered with sliding scale insulin. Patient glucose control not optimal adjusted long-acting insulin dose 6. GERD ? On PPI 7. Hypertension ? Blood pressure controlled, home medications continued with dose adjustment as needed 8. Dyslipidemia ? Patient apparently has intolerance to statin therapy currently on Repatha discontinued 9. Tobacco dependence ? Counseled on cessation, offered nicotine patch for tobacco cravings 10. History of previous CVA ? With residual mild facial droop. Patient is on dual antiplatelet therapy did continue 11. DVT prophylaxis ? Subcu Lovenox Charges/Coding Visit Charges Inpatient E&M: 66223 Subs Hosp L2
[2024-11-13 08:49] VITALS: BP 95/58; PULSE 84; RESP 16; TEMP 36.4; O2SAT 99
[2024-11-13] MEDS: SACUBITRIL/VALSARTAN 24/26 MG TABLET 1 EACH PO (08:51)
[2024-11-13] MEDS: Insulin Glargine-YFGN 100 UNIT/ML Pen 20 UNIT SC (08:51)
[2024-11-13] MEDS: 0.9% Saline Lock 10 ML Syringe IV (08:53)
[2024-11-13 10:45] VITALS: O2SAT 100; O2SAT 93
[2024-11-13 13:26] VITALS: BP 97/59; PULSE 92; RESP 18; TEMP 36.8; O2SAT 99
--- NOTE | 2024-11-13 13:28 | DS.PCM_ITS ---
Providers Date of Admission: 11/10/24 Date of Discharge: 11/13/24 Primary Care Physician: Dr. Ant Nuñez, DO Consultations 11/10/24 20:45 Consult: Onc/Wound/home health aide caregiver Routine Comment: Reason for Consult:: BL LE stasis wounds/blisters, admit with HF Exac 11/11/24 15:03 Consult: Cardiology Routine Consulting Provider: Buck Trevino Reason for Consult: HFrEF/SOB/BLE EDEMA EMERGENT Consult: No MD Notified: Yes Date Notified: 11/11/24 Time Notified: 15:03 Method of Notification: Verbal Reason For Visit: ACUTE HFREF EXACERBATION Diagnosis Discharge Diagnosis (1) Acute HFrEF (heart failure with reduced ejection fraction): Status: Acute Code(s): I50.21 - Acute systolic (congestive) heart failure Plan Patient is a 64-year-old gentleman who presented with a week history of progressive shortness of breath with bilateral lower extremity edema 1. Acute on chronic congestive heart failure with reduced ejection fraction ? Echo from 09/18/2024 demonstrated LVEF of 35% with akinetic apex and severely hypokinetic mid anterior region. Patient presented with exertional dyspnea bilateral lower extremity edema and was found to have elevated proBNP and assessment of acute decompensated CHF made. Patient admitted to monitored bed continue strict input and output, daily weight, low-sodium diet, fluid restriction as well as diuretic therapy with furosemide ? 11/12/2024; consult was placed to cardiology patient was seen by Dr. Trevino recommended addition of Entresto Farxiga and Aldactone ? 11/13/2024 patient has experienced on 8 kg weight loss from diuresis since admission. Currently remains on oxygen supplementation 2 L flow per minute. Plan is for patient to be assessed for home oxygen prior to making decision regarding discharge. Patient did not require oxygen on discharge 2. Coronary artery disease ? With previous CABG patient is on guideline directed medical therapy except for statin due to intolerance 3. COPD ? Aerosol treatments as needed 4. Peripheral arterial disease with known history of carotid artery stenosis ? Status post CEA 5. Diabetes mellitus type II -patient's oral hypoglycemics held. Placed on long acting insulin, Accu-Cheks a.c. and at bedtime and covered with sliding scale insulin. Patient glucose control not optimal adjusted long-acting insulin dose 6. GERD ? On PPI 7. Hypertension ? Blood pressure controlled, home medications continued with dose adjustment as needed 8. Dyslipidemia ? Patient apparently has intolerance to statin therapy currently on Repatha discontinued 9. Tobacco dependence ? Counseled on cessation, offered nicotine patch for tobacco cravings 10. History of previous CVA ? With residual mild facial droop. Patient is on dual antiplatelet therapy did continue 11. DVT prophylaxis ? Subcu Lovenox Medications at Discharge Home Medications blood sugar diagnostic (FreeStyle Test strips) #50 ea 04/02/21 blood-glucose meter (FreeStyle System Kit) #1 ea 04/02/21 lancets 28 gauge (FreeStyle Lancets) #50 ea 04/02/21 pen needle, diabetic 31 gauge x 3/16 (1st Tier Unifine Pentips Plus) #100 ea 04/02/21 Handicap placard #1 ea 07/22/23 pen needle, diabetic 31 gauge x 5/16 (Comfort EZ Pen [place]) #100 ea 10/28/23 evolocumab 140 mg/mL subcutaneous pen injector (Repatha SureClick) 140 mg subcut Q2W cholesterol #6 mL 05/09/24 insulin glargine 100 unit/mL (3 mL) subcutaneous pen (Lantus Solostar U-100 Insulin) 20 unit subcut DAILY Diabetes 06/17/24 omeprazole 20 mg capsule,delayed release 20 mg PO DAILY reflux #90 caps 09/13/24 fluticasone propionate 50 mcg/actuation nasal spray,suspension (Flonase Allergy Relief) 2 spray intranasal DAILY PRN nasal congestion 09/18/24 nitroglycerin 0.4 mg sublingual tablet 0.4 mg sublingual Q5M PRN Cardiac/Chest Pain #25 tabs 09/27/24 aspirin 81 mg chewable tablet 81 mg PO BREAKFAST preventative #90 tabs 11/03/24 clopidogrel 75 mg tablet 75 mg PO DAILY antiplatelet #90 tabs 11/03/24 dapagliflozin propanediol 10 mg tablet (Farxiga) 10 mg PO DAILY diabetes #90 TABLETS 11/03/24 ezetimibe 10 mg tablet 10 mg PO DAILY cholesterol #90 tabs 11/03/24 albuterol sulfate 90 mcg/actuation aerosol inhaler 2 puff inhalation Q4H PRN shortness of breath or wheezing #6.7 grams 11/04/24 mometasone-formoterol HFA 100 mcg-5 mcg/actuation aerosol inhaler (Dulera) 2 puff inhalation BID COPD #13 grams 11/04/24 furosemide 40 mg tablet 40 mg PO BID diuretic 60 days #120 tabs 11/13/24 nicotine 21 mg/24 hr daily transdermal patch 1 patch transdermal DAILY #56 ea 11/13/24 sacubitril 24 mg-valsartan 26 mg tablet (Entresto) 1 tab PO BID #60 tabs 11/13/24 spironolactone 25 mg tablet 25 mg PO DAILY diuretic 60 days #60 tabs 11/13/24 Hospital Course Summary of Care Provided Minutes Spent on Discharge: 35 Physical Exam Narrative GENERAL: cooperative HEENT: Atraumatic; normocephalic EYES; Anicteric, Normal Conjunctiva NECK; supple, normal thyroid, RESPIRATORY: Diminished to auscultation CARDIOVASCULAR: Regular S1 S2, GI: soft, normoactive bowel sounds, : No Renal angle tenderness; EXTREMITIES: muna edema, no clubbing, MUSCULOSKELETAL: no muscle wasting NEURO: Awake; no lateralizing signs. SKIN: Bilateral lower extremity stasis dermatitis PSYCH; Flat affect Weight / BMI Weight Weight: 89.6 kg Body Mass Index (BMI) 27.6 ABG / Lab / Microbiology Data 11/13/24 05:13 11/13/24 05:13 Laboratory: Laboratory Results - last 24 hr 11/12/24 16:20: POC Glucose 201 H 11/12/24 21:51: POC Glucose 253 H 11/13/24 05:13: WBC 7.4, RBC 4.27 L, Hgb 12.9 L, Hct 39.8 L, MCV 93.2, MCH 30.2, MCHC 32.4, RDW Std Deviation 47.8 H, RDW Coeff of Maycol 14.1, Plt Count 321, MPV 9.2, Immature Gran % (Auto) 0.400, Neut % (Auto) 67.3, Lymph % (Auto) 20.0, [place] % (Auto) 8.9, Eos % (Auto) 3.1, Baso % (Auto) 0.3, Absolute Neuts (auto) 5.0, Absolute Lymphs (auto) 1.48, Nucleated RBC % 0, Sodium 137, Potassium 3.8, Chloride 100, Carbon Dioxide 26.1, Anion Gap 11, BUN 22 H, Creatinine 0.98, Estim Creat Clear Calc 89.59, Est GFR (MDRD) Non-Af 86, BUN/Creatinine Ratio 22.2 H, Glucose 98, Calcium 8.8 11/13/24 06:36: POC Glucose 88 11/13/24 11:36: POC Glucose 200 H Microbiology: Microbiology 11/10/24 16:55 Mucosa - Nose SARS-CoV-2, Influenza & RSV (PCR) - Final D/C Instructions Discharge Activity: Return to Normal Activity Call your doctor if you observe: Fever of 101 or Higher, Shortness of breath, Fainting spells and Chest pain DC O2, CPAP, BIPAP Needs Home O2 Discharge instructions: No Meaningful Use Info Meaningful Use Meaningful Use Diagnoses (Choose all that apply): CHF CHF NYDIA/ARB ordered at discharge?: Yes Documented LVEF (%): 35 Discharge Plan Admission Admit Date/Time: 11/10/24 19:31 Attending Provider: Steve Fields Primary Care Provider: Atn Nuñez Consulting Providers: Corazon Diaz; Buck Trevino Discharge Orders/Prescriptions Prescriptions: New sacubitril-valsartan [Entresto] 24-26 mg Tablet 1 tab PO BID Qty: 60 0RF nicotine 21 mg/24 hr patch 24 hour 1 patch transdermal DAILY Qty: 56 0RF Continued (DME) Handicap placard See Rx Instructions .Route .MEDSUPPLY Qty: 1 0RF Rx Instructions: Due to COPD, unable to walk 50 yards without assistance, duration 5 years. (DME) pen needle, diabetic [Comfort EZ Pen [place]] 31 gauge x 5/16 needle See Rx Instructions .Route Qty: 100 3RF Rx Instructions: As directed nitroglycerin 0.4 mg tablet, sublingual 0.4 mg Sublingual Q5M PRN (Reason: Cardiac/Chest Pain) Qty: 25 1RF albuterol sulfate 90 mcg/actuation HFA aerosol inhaler 2 puff inhalation Q4H PRN (Reason: shortness of breath or wheezing) Qty: 6.7 1RF Dulera 100-5 mcg/actuation HFA aerosol inhaler 2 puff inhalation BID Qty: 13 1RF clopidogrel 75 mg tablet 75 mg PO DAILY Qty: 90 3RF ezetimibe 10 mg tablet 10 mg PO DAILY Qty: 90 3RF aspirin 81 mg tablet,chewable 81 mg PO BREAKFAST Qty: 90 3RF dapagliflozin propanediol [Farxiga] 10 mg tablet 10 mg PO DAILY Qty: 90 3RF fluticasone propionate [Flonase Allergy Relief] 50 mcg/actuation spray,suspension 2 spray intranasal DAILY PRN (Reason: nasal congestion) Rx Instructions: administer into each nostril spironolactone 25 mg tablet 25 mg PO DAILY 60 Days Qty: 60 3RF insulin glargine [Lantus Solostar U-100 Insulin] 100 unit/mL (3 mL) insulin pen 20 unit subcut DAILY (DME) FreeStyle Test Strip See Rx Instructions .ROUTE .MEDSUPPLY Qty: 50 11RF Rx Instructions: check blood glucose daily (DME) blood-glucose meter [FreeStyle System Kit] Kit See Rx Instructions .ROUTE .MEDSUPPLY Qty: 1 0RF Rx Instructions: check blood glucose daily for type 2 DM (DME) lancets [FreeStyle Lancets] 28 gauge misc See Rx Instructions .ROUTE .MEDSUPPLY Qty: 50 11RF Rx Instructions: Check blood glucose daily for type 2 DM (DME) pen needle, diabetic [1st Tier Unifine Pentips Plus] 31 gauge x 3/16 needle See Rx Instructions .ROUTE .MEDSUPPLY Qty: 100 1RF Rx Instructions: use with lantus nightly Repatha SureClick 140 mg/mL pen injector 140 mg subcut Q2W Qty: 6 3RF omeprazole 20 mg capsule,delayed release(DR/EC) 20 mg PO DAILY Qty: 90 1RF Changed furosemide 40 mg tablet 40 mg PO BID 60 Days Qty: 120 3RF Referrals / Follow Up: Calos Quinn MD [Med Staff - Active Staff] - Within 1 Month Ant Nuñez DO [Primary Care Provider] - Within 2 Weeks Disposition Disposition (needs filled in before D/C Order can be placed): Home Health Service Charges/Coding Visit Charges Inpatient E&M: 54473 Disch Hosp >30min
[2024-11-13 14:16] VITALS: BP 97/59; PULSE 92; RESP 16; TEMP 36.8; O2SAT 99
--- NOTE | 2024-11-14 13:41 | CASEMGMT ---
VICKI RIVERA received notification from [facility] [employer] that patient will need Prior Auth for Entresto prescription, Cover My Meds [place] [id number]. VICKI IRVERA completed PA on Cover My Meds.
--- NOTE | 2024-11-14 13:41 | CASEMGMT ---
VICKI RIVERA received notification from [facility] [employer] that patient will need Prior Auth for Entresto prescription, Cover My Meds [place] [id number]. VICKI RIVERA completed PA on Cover My Meds.
== END 2024-11-13 15:05 | disposition home health service (06) | DRG 291 ==
LOC: ED 16:38 → PCU 11-11 07:09
PROVIDERS: Admitting Provider Family Medicine; Emergency Provider Surgery; PCP Family Medicine; Visit Provider Internal Medicine
DX: I13.0 Hypertensive heart and chronic kidney disease with heart failure and stage 1 through stage 4 chronic kidney disease, or unspecified chronic kidney disease (principal); I50.23 Acute on chronic systolic (congestive) heart failure; I69.392 Facial weakness following cerebral infarction; Z95.1 Presence of aortocoronary bypass graft; E11.22 Type 2 diabetes mellitus with diabetic chronic kidney disease; J44.9 Chronic obstructive pulmonary disease, unspecified; F32.A Depression, unspecified; I25.10 Atherosclerotic heart disease of native coronary artery without angina pectoris; N18.2 Chronic kidney disease, stage 2 (mild); Z79.4 Long term (current) use of insulin; K21.9 Gastro-esophageal reflux disease without esophagitis; E11.51 Type 2 diabetes mellitus with diabetic peripheral angiopathy without gangrene; E78.2 Mixed hyperlipidemia; F17.210 Nicotine dependence, cigarettes, uncomplicated; F41.9 Anxiety disorder, unspecified; I25.2 Old myocardial infarction; I87.8 Other specified disorders of veins; Z79.02 Long term (current) use of antithrombotics/antiplatelets; Z79.51 Long term (current) use of inhaled steroids; Z79.82 Long term (current) use of aspirin; Z79.84 Long term (current) use of oral hypoglycemic drugs; Z79.899 Other long term (current) drug therapy
CPT/HCPCS: 36415; 36600; 71046; 80048; 80053; 80061; 82803; 82962; 83735; 83880; 84100; 84443; 84484; 85025; 87631; 93005; 94640; 94668; 94760; 97802; 99285; 99406; A4216; J1938

== ENCOUNTER 2024-11-22 09:47 | Inpatient (IN) | payer MEDICAID, SELFPAY ==
[2024-11-22] VITALS (19 sets, daily range): BP systolic 98–147; BP diastolic 62–89; PULSE 106–120; RESP 12–45; TEMP 36.6–38.8; O2SAT 92–100; BMI 29.8; BMI 28.8; BMI 29.5
--- NOTE | 2024-11-22 10:41 | EKG12_ITS ---
Test Reason : WEAKNESS Blood Pressure : */* mmHG Vent. Rate : 111 BPM Atrial Rate : 111 BPM P-R Int : 152 ms QRS Dur : 88 ms QT Int : 360 ms P-R-T Axes : 48 33 152 degrees QTcB Int : 489 ms Sinus tachycardia Nonspecific ST and T wave abnormality QTcB >= 480 msec Abnormal ECG Confirmed by AURELIANO WESTBROOK, JULIO CÉSAR ([id number]), copy editor SAY DESAI ([id number]) on 11/23/2024 9:36:14 AM Referred By: Confirmed By: JULIO CÉSAR BEDOYA MD
--- NOTE | 2024-11-22 10:41 | RAD_ITS ---
PROCEDURE: CHEST 1 VIEW (PORTABLE) 11/22/2024 REASON FOR EXAM: WEAKNESS TECHNIQUE: Frontal view of the chest. COMPARISON: November 10, 2024 FINDINGS: Hardware: EKG leads are present. Heart: Mildly enlarged. Prior median sternotomy. Lungs: Small volume pleural fluid on the right. Bibasilar subsegmental atelectasis. Bones: Degenerative changes are identified within the thoracic spine. RAD/Chest 1 View (Portable) IMPRESSION: Subsegmental atelectasis at the lung bases. Small right pleural effusion. Reading Location: [id number]
--- NOTE | 2024-11-22 10:44 | EDS_ITS ---
HPI History of Present Illness Chief Complaint: Weakness Informant: patient Onset/Context/Timing Onset: Today Current Severity: Moderate Maximum Severity: Moderate Narrative Narrative: 64-year-old male history of prior stroke, TX, CHF, CABG and diabetes. Recently hospitalized. Today at home he was just weak and he slid down to the floor denies any injuries. Other than some discomfort in his left hip. Did not hit his head he is on no blood thinners. He denies any vomiting diarrhea or fever. Denies any dysuria. Denies any melena. Just says he feels weak he is unable to walk. Prior similar symptoms: Yes Recent Illness/Hospitalization: Yes [facility] Medical History History of CVA (cerebrovascular accident) Cardiac LV ejection fraction 30-35% GERD (gastroesophageal reflux disease) Anxiety High blood cholesterol Diabetes mellitus Emphysema, unspecified COPD (chronic obstructive pulmonary disease) Decreased left ventricular function Encounter for screening for malignant neoplasm of lung in current smoker with 30 pack year history or greater Stenosis of right carotid artery Insulin dependent diabetes mellitus History of non-ST elevation myocardial infarction (NSTEMI) (06/11/18) Emphysema lung Asthma Type 2 diabetes mellitus Arthritis Pancreatitis GERD (gastroesophageal reflux disease) Nicotine dependence Atherosclerosis of coronary artery of [place] heart without angina pectoris Hyperlipidemia Essential (primary) hypertension Home Medications ?Medication ?Instructions ?Recorded ?Last Taken ?Type blood sugar diagnostic (FreeStyle #50 ea 04/02/21 Unkn own Rx Test strips) blood-glucose meter (FreeStyle #1 ea 04/02/21 Unknown Rx System Kit) lancets 28 gauge (FreeStyle #50 ea 04/02/21 Unknown Rx Lancets) pen needle, diabetic 31 gauge x #100 ea 04/02/21 Unkno wn Rx 3/16 (1st Tier Unifine Pentips Plus) Handicap placard #1 ea 07/22/23 Unknown Rx pen needle, diabetic 31 gauge x #100 ea 10/28/23 Unkno wn Rx 5/16 (Comfort EZ Pen [place]) evolocumab 140 mg/mL subcutaneous 140 mg subcut Q2W ch olesterol #6 mL 05/09/24 09/12/24 Rx pen injector (Wolf Daughertyick) insulin glargine 100 unit/mL (3 20 unit subcut DAILY D iabetes 06/17/24 09/18/24 History mL) subcutaneous pen (Lantus Solostar U-100 Insulin) omeprazole 20 mg capsule,delayed 20 mg PO DAILY reflux #90 caps 09/13/24 09/18/24 Rx release fluticasone propionate 50 2 spray intranasal DAILY PRN nasal 09/18/24 Unknown History mcg/actuation nasal congestion spray,suspension (Flonase Allergy Relief) nitroglycerin 0.4 mg sublingual 0.4 mg sublingual Q5M PRN 09/27/24 Unknown Rx tablet Cardiac/Chest Pain #25 tabs aspirin 81 mg chewable tablet 81 mg PO BREAKFAST preve ntative 11/03/24 Unknown Rx #90 tabs clopidogrel 75 mg tablet 75 mg PO DAILY antiplatelet #90 11/03/24 Unknown Rx tabs dapagliflozin propanediol 10 mg 10 mg PO DAILY diabete s #90 TABLETS 11/03/24 Unknown Rx tablet (Farxiga) ezetimibe 10 mg tablet 10 mg PO DAILY cholesterol # 90 tabs 11/03/24 Unknown Rx albuterol sulfate 90 mcg/actuation 2 puff inhalation Q 4H PRN 11/04/24 Unknown Rx aerosol inhaler shortness of breath or wheez ing #6.7 grams mometasone-formoterol HFA 100 2 puff inhalation BID CO PD #13 11/04/24 Unknown Rx mcg-5 mcg/actuation aerosol grams inhaler (Dulera) furosemide 40 mg tablet 40 mg PO BID diuretic 60 day s #120 11/13/24 Unknown Rx tabs nicotine 21 mg/24 hr daily 1 patch transdermal DAILY # 56 ea 11/13/24 Unknown Rx transdermal patch sacubitril 24 mg-valsartan 26 mg 1 tab PO BID #60 tabs 11/13/24 Unknown Rx tablet (Entresto) spironolactone 25 mg tablet 25 mg PO DAILY diuretic 60 days 11/13/24 Unknown Rx #60 tabs Allergy/AdvReac Type Severity Reaction Status Date / Time amoxicillin Allergy Angioedema Verified 11/16/24 10:06 lindane Allergy Rash Verified 11/16/24 10:06 Family History Father Asthma Alcoholism Arthritis Heart disease Hypertension High cholesterol CVA (cerebral vascular accident) Lung cancer Grandfather Myocardial infarction Surgical History S/P CABG x 4 History of hernia repair History of carotid endarterectomy (01/06/14) H/O coronary artery bypass surgery (2006) History of left heart catheterization (06/11/18) Social History household members: none Smoking Status: Light Smoker (<10/day) Tobacco: How many years used: 45 Electronic Cigarette Use: not used second hand exposure: Yes quit status: considering quitting alcohol intake: never substance use type: does not use caffeine: Yes Type: coffee Number of servings: 5 what type of physical activity do you participate in: none ROS ROS ED ROS Narrative Generalized weakness. Denies recent illness. Constitutional Constitutional ED: Denies chills or fever(s) Eyes Eyes: Denies blurry vision ENT ENT ED: Denies ear pain Cardiovascular Cardiovascular: Denies chest pain Respiratory/Chest Respiratory/Chest: Denies cough or dyspnea Gastrointestinal Gastrointestinal: Denies abdominal pain Genitourinary Genitourinary ED: Denies dysuria or hematuria Musculoskeletal Musculoskeletal: Denies arthralgias or back pain Integumentary Denies abscess or Abrasions Neurologic Neurologic: Denies headache(s) Psychiatric Psychiatric: Denies anxiety or depression Endocrine Endocrinology: Denies cold intolerance Hematologic/Lymphatic Hematologic/Lymphatic: Reports none Allergic/Immunologic Allergic/Immunologic ED: Denies mouth swelling, tongue swelling or urticaria EXAM Physical Exam Narrative Exam Narrative: 64-year-old male vital signs are stable afebrile he is mildly tachycardic. He does not look septic or toxic. He is in no acute distress. Generally appears weak. and family member at bedside. H EENT exam pupils round reactive light. Mildly dry mucous membranes. Neck nontender no JVD. Lungs clear to auscultation bilaterally. Heart regular rhythm no murmur. Rate about 110. Abdomen soft nontender. Moving all 4 extremities. He has 2+ pitting edema both lower extremities. Both lower extremities have redness that could be consistent with either a rash, venous insufficiency or cellulitis. Is not warm to the touch is not tender. He has normal campus dean strength. Both legs are weak he cannot lift either one of them off the bed. Back nontender. Neurologically he is awake and alert. Answering questions following commands. Const Vital Signs: 11/22/24 09:52 11/22/24 09:54 11/22/24 10:47 Temperature 98.4 F 98.4 F Temperature Source Oral Oral Pulse Rate 110 H 108 H Respiratory Rate 16 17 Blood Pressure 101/68 101/68 Blood Pressure Mean 79 79 Pulse Ox 95 96 Oxygen Delivery Method Room Air Room Air Room Air 11/22/24 10:47 11/22/24 10:54 11/22/24 11:00 Temperature 98.1 F 97.9 F Temperature Source Temporal Temporal Pulse Rate 106 H 107 H 107 H Respiratory Rate 26 H 24 H 21 H Blood Pressure 99/64 109/64 105/64 Blood Pressure Mean 75 79 77 Pulse Ox 97 97 96 Oxygen Delivery Method Room Air Room Air 11/22/24 12:00 Temperature 98.0 F Temperature Source Temporal Pulse Rate 109 H Respiratory Rate 21 H Blood Pressure 114/74 Blood Pressure Mean 87 Pulse Ox 96 Oxygen Delivery Method Room Air Positive well nourished and well developed; Negative for cachectic, contractures or unkempt General Appearance ED: well developed and NAD; Negative for unkempt, cachectic, contractures, cyanotic, diaphoretic or pallor Nutritional Appearance: Negative for cachectic HEENT Reports dry mucous membranes Negative for trauma or tenderness Mouth ED: Yes dry mucous membranes Mouth: dry mucous membranes Eyes PERRL and EOMs intact bilaterally Neck no lymphadenopathy, supple and no JVD Chest Wall inspection of chest normal and palpation of chest normal Resp normal respiratory effort and clear to auscultation bilaterally Cardio regular rhythm, S1 normal heart sound, S2 normal heart sound and no murmurs; Negative for regular rate Rate: tachycardic GI normal to inspection, nondistended, normoactive bowel sounds, non-tender, non-distended and no masses Auscultation: normoactive bowel sounds Palpation: soft; Negative for tender, guarding or rebound tenderness present Back/Spine no CVA tenderness General Back: Negative for CVA tenderness Cervical Spine: Negative for cervical spine tenderness Thoracic Spine / Upper Back: Negative for thoracic spinal tenderness or paraspinal muscle tenderness Lumbar Spine / Lower Back: Negative for lumbar spinal tenderness Extremity Negative for normal to inspection Extremity Narrative: Bilateral lower extremity 2+ pitting edema. Redness consistent with either venous insufficiency or possible cellulitis. General Extremety ED: Yes edema General Extremity: edema Neuro oriented x3 and CN's II-XII intact bilaterally Neuro Narrative: Bilateral lower extremity weakness cannot lift either leg off the bed. Sensorium / Orientation: alert Motor Exam: general weakness; Negative for strength 5/5 throughout Psych mental status grossly normal Appearance: Negative for unkempt Mood & Affect: Negative for depressed, anxious or tearful Skin No no rashes or lesions noted and no wounds Skin Narrative: Bilateral lower extremity rash. General Skin Exam: Negative for jaundice or pallor Lesions: No lesion noted Rashes: rashes noted MDM MDM MDM Narrative Medical decision making narrative: 64-year-old male significant past medical history of CVA, CHF, diabetes and CABG with generalized weakness. He is unable to stand. He fell at home. Screening labs will be obtained. Repeat exam at 12:40 PM exam no significant change. Family states the redness of his lower extremity is actually better than what it has been. Is generally weak we do not have a specific cause at this time. His EF is only 35% on his last echo and holding off on IV fluids at this time. I explained amount of the specific cause of his overall weakness is too weak to stand I will speak to the hospitalist and admit him. History & Record Review Discussion w/independent historian: Patient and Family Additional record(s) reviewed:: Prior inpatient record, Prior outpatient record, Prior ED visit and Prior labs Lab Data Attestation: I reviewed the patient's lab results. Lab results narrative: CBC shows a white count of 5. H&H 13 and 42. Platelets 392. PT/INR of 15 and 1. PTT 29. Electrolytes show a gap of 18. BUN and creatinine 26 and 1.25. Consistent mild dehydration. Glucose 211. Liver enzymes normal. Lactic acid 4.1. Chest x-ray shows chronic changes. Sternotomy. But no acute process. Right pleural effusion. Labs: Laboratory Results - last 24 hr 11/22/24 11/22/24 09:30 10:00 WBC 5.4 RBC 4.57 L Hgb 13.6 Hct 42.5 MCV 93.0 MCH 29.8 MCHC 32.0 RDW Std Deviation 50.2 H RDW Coeff of Maycol 14.6 Plt Count 392 MPV 9.9 Immature Gran % (Auto) 0.400 Neut % (Auto) 80.3 H Lymph % (Auto) 12.7 L Nuckolls % (Auto) 6.4 Eos % (Auto) 0.0 Baso % (Auto) 0.2 Absolute Neuts (auto) 4.4 Absolute Lymphs (auto) 0.69 L Nucleated RBC % 0 Differential Comment PT 15.6 H INR 1.2 APTT 29.5 Sodium 139 Potassium 4.3 Chloride 102 Carbon Dioxide 18.6 L Anion Gap 18 H BUN 26 H Creatinine 1.25 H Estim Creat Clear Calc 70.92 Est GFR (MDRD) Non-Af 64 BUN/Creatinine Ratio 20.9 H Glucose 211 H Lactic Acid 4.1 H* Calcium 9.4 Total Bilirubin 1.18 AST 33 ALT 26 Alkaline Phosphatase 127 Total Protein 7.1 Albumin 3.7 Globulin 3.3 Albumin/Globulin Ratio 1.1 Radiography Chest X-Ray - ED: 1 View, Read by ED Physician, Read by Radiologist, Heart, Mediastinum, Bony Structures, Chronic Changes and Right Effusion Diagnostic Testing: Clinical Impression(s) from Imaging Studies Chest X-Ray 11/22/24 10:41 IMPRESSION: Subsegmental atelectasis at the lung bases. Small right pleural effusion. Reading Location: [facility] Hip/Pelvis X-Ray 11/22/24 10:50 IMPRESSION: DEGENERATIVE OSTEOARTHROSIS. NO ACUTE FINDINGS. Reading Location: [id number] Chest x-ray, 1 view, portable, shows a sternotomy. Chronic changes. Right pleural effusion. No acute process. Rhythm Strip Rhythm Strip: Sinus Tach Rate: 111 Ectopy: None EKG Initial EKG: Attestation: I personally reviewed and interpreted this EKG as follows: Interpretation: No Acute Injury Pattern and Sinus Tachycardia Comments: Sinus tachycardia rate of 111 no acute signs of TX or ischemia. Discharge Plan Triage Chief Complaint: Weakness ED Provider: Devin Curry Dx/Rx/DC Orders Clinical Impression: Generalized weakness, Unable to ambulate, History of heart failure, History of diabetes mellitus, Hx of CABG Prescriptions: No Action (DME) Handicap placard See Rx Instructions .Route .MEDSUPPLY Qty: 1 0RF Rx Instructions: Due to COPD, unable to walk 50 yards without assistance, duration 5 years. (DME) pen needle, diabetic [Comfort EZ Pen [place]] 31 gauge x 5/16 needle See Rx Instructions .Route Qty: 100 3RF Rx Instructions: As directed nitroglycerin 0.4 mg tablet, sublingual 0.4 mg Sublingual Q5M PRN (Reason: Cardiac/Chest Pain) Qty: 25 1RF albuterol sulfate 90 mcg/actuation HFA aerosol inhaler 2 puff inhalation Q4H PRN (Reason: shortness of breath or wheezing) Qty: 6.7 1RF Dulera 100-5 mcg/actuation HFA aerosol inhaler 2 puff inhalation BID Qty: 13 1RF clopidogrel 75 mg tablet 75 mg PO DAILY Qty: 90 3RF ezetimibe 10 mg tablet 10 mg PO DAILY Qty: 90 3RF aspirin 81 mg tablet,chewable 81 mg PO BREAKFAST Qty: 90 3RF dapagliflozin propanediol [Farxiga] 10 mg tablet 10 mg PO DAILY Qty: 90 3RF fluticasone propionate [Flonase Allergy Relief] 50 mcg/actuation spray,suspension 2 spray intranasal DAILY PRN (Reason: nasal congestion) Rx Instructions: administer into each nostril sacubitril-valsartan [Entresto] 24-26 mg Tablet 1 tab PO BID Qty: 60 0RF furosemide 40 mg tablet 40 mg PO BID 60 Days Qty: 120 3RF spironolactone 25 mg tablet 25 mg PO DAILY 60 Days Qty: 60 3RF nicotine 21 mg/24 hr patch 24 hour 1 patch transdermal DAILY Qty: 56 0RF insulin glargine [Lantus Solostar U-100 Insulin] 100 unit/mL (3 mL) insulin pen 20 unit subcut DAILY (DME) FreeStyle Test Strip See Rx Instructions .ROUTE .MEDSUPPLY Qty: 50 11RF Rx Instructions: check blood glucose daily (DME) blood-glucose meter [FreeStyle System Kit] Kit See Rx Instructions .ROUTE .MEDSUPPLY Qty: 1 0RF Rx Instructions: check blood glucose daily for type 2 DM (DME) lancets [FreeStyle Lancets] 28 gauge misc See Rx Instructions .ROUTE .MEDSUPPLY Qty: 50 11RF Rx Instructions: Check blood glucose daily for type 2 DM (DME) pen needle, diabetic [1st Tier Unifine Pentips Plus] 31 gauge x 3/16 needle See Rx Instructions .ROUTE .MEDSUPPLY Qty: 100 1RF Rx Instructions: use with lantus nightly Repatha SureClick 140 mg/mL pen injector 140 mg subcut Q2W Qty: 6 3RF omeprazole 20 mg capsule,delayed release(DR/EC) 20 mg PO DAILY Qty: 90 1RF Primary Care Provider: Ant uNñez Referrals: Ant Nuñez, DO [Primary Care Provider] - Print Language: Latvian Disposition Disposition: Acute Care Hospital [facility]
--- NOTE | 2024-11-22 10:50 | RAD_ITS ---
PROCEDURE: HIP, UNI W/ PELVIS 2-3 VIEWS 11/22/2024 REASON FOR EXAM: FALL TECHNIQUE: HIP, UNI W/ PELVIS 2-3 VIEWS Laterality: Left hip. COMPARISON: None FINDINGS: Bones: No definite fracture is seen. Joints: Joint space narrowing of both hip joints as well as the sacroiliac joints and symphysis pubis. Soft tissues: Unremarkable Other: RAD/HIP, UNI W/ Pelvis 2-3 Views IMPRESSION: DEGENERATIVE OSTEOARTHROSIS. NO ACUTE FINDINGS. Reading Location: [id number]
[2024-11-22 10:54] LABS: Hematocrit 42.5 % (40-54); Hemoglobin 13.6 g/dL (13.0-16.5); Immature Granulocytes Count 0.020 X10^3/uL (0.0-0.0); Mean Corp Hgb Conc 32.0 g/dL (32-36); Mean Corpuscular Volume 93.0 fL (80-94); Mean Platelet Vol. 9.9 fl (6.2-12.0); NRBC Flagged by Analyzer 0 % (0-5); POSITIVE MORPHOLOGY YES; Platelet Count 392 K/mm3 (150-450); RBC Distribution Width CV 14.6 % (11.6-14.6); RBC Distribution Width SD 50.2 fl (35.1-43.9); Red Blood Count 4.57 M/mm3 (4.6-6.2); White Blood Count 5.4 K/mm3 (4.4-11.0)
[2024-11-22 11:06] LABS: Prothrombin Time (Protime)PT. 15.6 SECONDS (11.7-14.9)
[2024-11-22 11:07] LABS: Partial Thromboplast Time 29.5 Seconds (24.1-36.2)
[2024-11-22 11:16] LABS: AST(SGOT) 33 U/L (<=37); Alanine Aminotransfer ALT/SGPT 26 U/L (<=46); Albumin, Serum 3.7 g/dL (3.4-4.8); Alkaline Phosphatase 127 U/L (40-129); Anion Gap 18 (5-15); BUN 26 mg/dL (4-19); BUN/Creat Ratio 20.9 RATIO (10-20); Calcium,Total 9.4 mg/dL (7.6-11.0); Carbon Dioxide 18.6 mmol/L (21.0-32.0); Chloride 102 mmol/L (98-108); Estimated Creatinine Clearance 70.92 ml/min (50-250); Globulin 3.3 g/dL (2.2-4.2); Glucose 211 mg/dL (70-99); Potassium 4.3 mmol/L (3.3-5.1)
[2024-11-22 11:17] LABS: Differential Indicated SCAN CRITERIA MET
--- NOTE | 2024-11-22 11:59 | ED.RN ---
pt. refused straight cath, dr. lao notified
--- NOTE | 2024-11-22 12:52 | HP.PCM.HOS_ITS ---
HPI - General General Date of Admission: 11/22/24 Date of Service: 11/22/24 HPI Narrative JAYLEN MEJIA, is a 64 M with a PMH as outlined who presents via the ED with a complaint of weakness. He said he felt very weak at home and slid to the floor. He did not fall. He complained of some pain in his left hip. He did not hit his head. He denied any fever, chills, cough, nausea, vomiting or any other symptoms. Review of systems is otherwise negative. He had recently been managed for lower extremity cellulitis and says he was on antibiotics and felt the legs had improved. However the legs remained red. Vitals in the ED were BP of 114/74, MD of 109, RR of 21 and temp of 98F. He was saturating at 96% on room air. CBC showed hb of 13.6, wbc of 5.4, platelets of 392. INR is 1.2. Chemistry showed sodium of 139, potassium of 4.3 and bicarb of 18.6. Anion gap is 18 and Cr is 1.25. Lactic acid is 4.1. CXR showed subsegmental atelectasis at the lung basis and a small right pleural effusion. Hip and pelvic xray showed degenerative osteoarthrosis and no acute findings. He is being admitted to be managed for debility and weakness and SIRS criteria likely due to lower extremity cellulitis. [facility] Medical History History of CVA (cerebrovascular accident) Cardiac LV ejection fraction 30-35% GERD (gastroesophageal reflux disease) Anxiety High blood cholesterol Diabetes mellitus Emphysema, unspecified COPD (chronic obstructive pulmonary disease) Decreased left ventricular function Encounter for screening for malignant neoplasm of lung in current smoker with 30 pack year history or greater Stenosis of right carotid artery Insulin dependent diabetes mellitus History of non-ST elevation myocardial infarction (NSTEMI) (06/11/18) Emphysema lung Asthma Type 2 diabetes mellitus Arthritis Pancreatitis GERD (gastroesophageal reflux disease) Nicotine dependence Atherosclerosis of coronary artery of [place] heart without angina pectoris Hyperlipidemia Essential (primary) hypertension Home Medications ?Medication ?Instructions ?Recorded ?Last Taken ?Type blood sugar diagnostic (FreeStyle #50 ea 04/02/21 Unkn own Rx Test strips) blood-glucose meter (FreeStyle #1 ea 04/02/21 Unknown Rx System Kit) lancets 28 gauge (FreeStyle #50 ea 04/02/21 Unknown Rx Lancets) pen needle, diabetic 31 gauge x #100 ea 04/02/21 Unkno wn Rx 3/16 (1st Tier Unifine Pentips Plus) Handicap placard #1 ea 07/22/23 Unknown Rx pen needle, diabetic 31 gauge x #100 ea 10/28/23 Unkno wn Rx 5/16 (Comfort EZ Pen [place]) evolocumab 140 mg/mL subcutaneous 140 mg subcut Q2W ch olesterol #6 mL 05/09/24 09/12/24 Rx pen injector (Repatha SureClick) insulin glargine 100 unit/mL (3 20 unit subcut DAILY D iabetes 06/17/24 09/18/24 History mL) subcutaneous pen (Lantus Solostar U-100 Insulin) omeprazole 20 mg capsule,delayed 20 mg PO DAILY reflux #90 caps 09/13/24 09/18/24 Rx release fluticasone propionate 50 2 spray intranasal DAILY PRN nasal 09/18/24 Unknown History mcg/actuation nasal congestion spray,suspension (Flonase Allergy Relief) nitroglycerin 0.4 mg sublingual 0.4 mg sublingual Q5M PRN 09/27/24 Unknown Rx tablet Cardiac/Chest Pain #25 tabs aspirin 81 mg chewable tablet 81 mg PO BREAKFAST preve ntative 11/03/24 Unknown Rx #90 tabs clopidogrel 75 mg tablet 75 mg PO DAILY antiplatelet #90 11/03/24 Unknown Rx tabs dapagliflozin propanediol 10 mg 10 mg PO DAILY diabete s #90 TABLETS 11/03/24 Unknown Rx tablet (Farxiga) ezetimibe 10 mg tablet 10 mg PO DAILY cholesterol # 90 tabs 11/03/24 Unknown Rx albuterol sulfate 90 mcg/actuation 2 puff inhalation Q 4H PRN 11/04/24 Unknown Rx aerosol inhaler shortness of breath or wheez ing #6.7 grams mometasone-formoterol HFA 100 2 puff inhalation BID CO PD #13 11/04/24 Unknown Rx mcg-5 mcg/actuation aerosol grams inhaler (Dulera) furosemide 40 mg tablet 40 mg PO BID diuretic 60 day s #120 11/13/24 Unknown Rx tabs nicotine 21 mg/24 hr daily 1 patch transdermal DAILY # 56 ea 11/13/24 Unknown Rx transdermal patch sacubitril 24 mg-valsartan 26 mg 1 tab PO BID #60 tabs 11/13/24 Unknown Rx tablet (Entresto) spironolactone 25 mg tablet 25 mg PO DAILY diuretic 60 days 11/13/24 Unknown Rx #60 tabs Allergy/AdvReac Type Severity Reaction Status Date / Time amoxicillin Allergy Angioedema Verified 11/16/24 10:06 lindane Allergy Rash Verified 11/16/24 10:06 Family History Father Asthma Alcoholism Arthritis Heart disease Hypertension High cholesterol CVA (cerebral vascular accident) Lung cancer Grandfather Myocardial infarction Surgical History S/P CABG x 4 History of hernia repair History of carotid endarterectomy (01/06/14) H/O coronary artery bypass surgery (2006) History of left heart catheterization (06/11/18) Social History household members: none Smoking Status: Light Smoker (<10/day) Tobacco: How many years used: 45 Electronic Cigarette Use: not used second hand exposure: Yes quit status: considering quitting alcohol intake: never substance use type: does not use caffeine: Yes Type: coffee Number of servings: 5 what type of physical activity do you participate in: none ROS Constitutional Constitutional: Reports fatigue, malaise and weakness; Denies anorexia, chills or fever(s) Eyes Eyes: Denies change in vision ENT HEENT: Denies dysphagia, headache(s) or sore throat Cardiovascular Cardiovascular: Denies chest pain, dyspnea on exertion, lightheadedness, orthopnea, palpitations, paroxysmal nocturnal dyspnea, rapid heart rate or syncope Respiratory/Chest Respiratory/Chest: Denies cough, dyspnea, productive cough, shortness of breath at rest or shortness of breath with exertion Gastrointestinal Gastrointestinal: Denies abdominal pain, constipation, diarrhea, nausea or vomiting Genitourinary Genitourinary: Denies burning urination, dysuria or nocturia Neurologic Neurologic: Denies confusion, dizziness, focal weakness, headache(s) or seizures Psychiatric Psychiatric: Denies anxiety or depression Vital Signs Vital Signs Vital Signs: 11/22/24 09:52 11/22/24 09:54 11/22/24 10:47 Temperature 98.4 F 98.4 F Temperature Source Oral Oral Pulse Rate 110 H 108 H Respiratory Rate 16 17 Blood Pressure 101/68 101/68 Blood Pressure Mean 79 79 Pulse Ox 95 96 Oxygen Delivery Method Room Air Room Air Room Air 11/22/24 10:47 11/22/24 10:54 11/22/24 11:00 Temperature 98.1 F 97.9 F Temperature Source Temporal Temporal Pulse Rate 106 H 107 H 107 H Respiratory Rate 26 H 24 H 21 H Blood Pressure 99/64 109/64 105/64 Blood Pressure Mean 75 79 77 Pulse Ox 97 97 96 Oxygen Delivery Method Room Air Room Air 11/22/24 12:00 Temperature 98.0 F Temperature Source Temporal Pulse Rate 109 H Respiratory Rate 21 H Blood Pressure 114/74 Blood Pressure Mean 87 Pulse Ox 96 Oxygen Delivery Method Room Air Weight Weight: 213 lb 13.574 oz Body Mass Index (BMI) 29.8 Physical Exam Const alert and oriented x3 Constitutional Narrative: frail, weak. General Appearance: cooperative HEENT normocephalic, head/scalp atraumatic and oropharynx normal HEENT Narrative: dry oral mucosa Eyes PERRL, EOMs intact bilaterally and conjunctivae normal Neck supple and no JVD Resp normal respiratory effort and no retractions Resp Narrative: mildly tachypneic. On room air. Cardio regular rhythm, S1 normal heart sound, S2 normal heart sound and no murmurs Cardio Narrative: tachycardic GI normal to inspection, nondistended, normoactive bowel sounds, soft to palpation and non-tender Extremity Extremity Narrative: has erythema of lower extremities bilaterally, from ankle to dent, with superficial ulcerations with some discharge over RLE dent. Mild differential warmth and swelling. Skin Skin Narrative: as under extremities Neuro oriented x3, CN's II-XII intact bilaterally and moves all extremities Sensorium / Orientation: awake Psych affect normal Psych Narrative: weak, frail Results Lab / Micro Data 11/22/24 09:30 11/22/24 09:30 Labs: Laboratory Results - last 24 hr 11/22/24 09:30: WBC 5.4, RBC 4.57 L, Hgb 13.6, Hct 42.5, MCV 93.0, MCH 29.8, MCHC 32.0, RDW Std Deviation 50.2 H, RDW Coeff of Maycol 14.6, Plt Count 392, MPV 9.9, Immature Gran % (Auto) 0.400, Neut % (Auto) 80.3 H, Lymph % (Auto) 12.7 L, [place] % (Auto) 6.4, Eos % (Auto) 0.0, Baso % (Auto) 0.2, Absolute Neuts (auto) 4.4, Absolute Lymphs (auto) 0.69 L, Nucleated RBC % 0, Differential Comment , PT 15.6 H, INR 1.2, APTT 29.5, Sodium 139, Potassium 4.3, Chloride 102, Carbon Dioxide 18.6 L, Anion Gap 18 H, BUN 26 H, Creatinine 1.25 H, Estim Creat Clear Calc 70.92, Est GFR (MDRD) Non-Af 64, BUN/Creatinine Ratio 20.9 H, Glucose 211 H , Calcium 9.4, Total Bilirubin 1.18, AST 33, ALT 26, Alkaline Phosphatase 127, Total Protein 7.1, Albumin 3.7, Globulin 3.3, Albumin/Globulin Ratio 1.1 11/22/24 10:00: Lactic Acid 4.1 H* Rhythm Strip Rhythm Strip: Sinus Tach Rate: 111 Ectopy: None Imaging Radiology Impression Chest X-Ray 11/22/24 10:41 IMPRESSION: Subsegmental atelectasis at the lung bases. Small right pleural effusion. Reading Location: [facility] Hip/Pelvis X-Ray 11/22/24 10:50 IMPRESSION: DEGENERATIVE OSTEOARTHROSIS. NO ACUTE FINDINGS. Reading Location: [facility] Assessment & Plan Assessment/Plan (1) Severe sepsis: PLAN: Plan #Sepsis due to cellulitis of the lower extremities * Patient admitted with complaint of weakness and failure to thrive. He did meet sepsis criteria as he is tachycardic and tachypneic and lactic acid is also elevated at 4 which meets evidence of endorgan damage. WBC is however 25.4. * He says he was recently treated for cellulitis. His lower extremities still remain erythematous and has mild differential warmth. He completed a course of antibiotics and does not know which antibiotics he was on. * Admit to PCU. Will not hydrate with IV fluids per sepsis protocol as he does have heart failure with reduced ejection fraction and so there is concern of fluid overload. Will hydrate gently with IV fluid normal saline 100 cc/h for 1 bag. He did already receive 1 L down in the ED. * Started on IV vancomycin and cefepime. Blood cultures and wound cultures as well as urine cultures obtained. * ID consulted. * #Chronic Heart failure with reduced ejection fraction: * Not in exacerbation. Breathing treatments bronchodilators. On Lasix 40 mg twice daily. Will hold for now as patient is being gently hydrated in light of her sepsis and elevated lactic acid. #Elevated Cr: * Creatinine is 1.25. Baseline creatinine from 11/13/2024 was 0.98. * Does not meet criteria for BENOIT. * Will hydrate gently with IV fluids and trend creatinine. * #Type 2 diabetes mellitus:?20 units daily. Insulin sliding scale. Accu-Cheks ACHS. Also on dapagliflozin. Also on Entresto As well as spironolactone. #CAD: On aspirin and Plavix as well as high intensity statin. Also on Repatha. #Debility and weakness with failure to thrive. Patient states he passed out at home. Apparently seems like he was very weak and slid to the floor and did not hit his head. PT OT on board. Fall precautions. #Nicotine dependence: Counseled to quit. Nicotine patch 21 mg daily. CODE STATUS: Full code * Patient and his son Jaylen Mejia Jr, counseled extensively about different types of CODE STATUS including full code, DNR CCA and DNR CCA. Patient elects to be full code. * Total [id number] time 18 minutes. Charges/Coding Visit Charges Inpatient E&M: 18375 Init Hosp L3 Procedures Hospitalists Procedures: 98767 Advncd Care Plan 30 Min
--- NOTE | 2024-11-22 14:09 | VDLE_ITS ---
Reason For Study Reason For Study: BLE Swelling RIGHT LEFT GSV is normal. GSV is normal. CFV is compressible, spontaneous, phasic, competent CFV is compressible, spontaneous, phasic, competent, and demonstrates normal augmentation. and demonstrates normal augmentation. FV is compressible, spontaneous, phasic, competent FV is compressible, spontaneous, phasic, competent and demonstrates normal augmentation. and demonstrates normal augmentation. POP V is compressible, spontaneous, phasic, competent POP V is compressible, spontaneous, phasic, competent and demonstrates normal augmentation. and demonstrates normal augmentation. T/P Trunk is compressible. T/P Trunk is compressible. PTV is compressible. PTV is compressible. RT PerV is compressible. LT PerV is compressible. Procedure This is a venous duplex using B-mode, color flow and spectral Doppler. Exam performed in department. The exam was diagnostic. A preliminary report was called and/or faxed to [facility] - U coordinator volunteer services. VL/Venous Duplex US - Felipe Extrem Interpretation Summary Deep veins of the lower extremities are bilaterally patent and compressible seg mentally. There is no evidence of deep vein thrombosis on either side. Valvular competence appears intact within the p roximal deep venous systems bilaterally. The great saphenous veins appear bilaterally patent and compressible segmentall y. Ordering Physician: Flori Johnson Referring Physician: Ant Nuñez Performed By: Yonas Lock, RVT
--- NOTE | 2024-11-22 14:44 | CASEMGMT ---
Social Work Patient had a face to face assessment completed less than 30 days ago. Patient verified that information remains the same, except that patient has required some assistance with ADLs and today has been unable to ambulate. Patients discharge goals are uncertain at this time. Lexis Suarez, SAMPLE CASE PORTER, MENU PLANNER
[2024-11-22 14:46] LABS: Reflex Lactate? Y
--- NOTE | 2024-11-22 15:31 | PCM.RX.CS ---
Consult Antibiotic Management Pharmacy has been consulted to manage selected antibiotic: Vancomycin Type of Intervention Type of Consult: New start Suspected Infection Suspected Infection: Sepsis Labs Labs: Sodium 139 mmol/L (133-145) 11/22/24 09:30 Potassium 4.3 mmol/L (3.3-5.1) 11/22/24 09:30 Chloride 102 mmol/L (98-108) 11/22/24 09:30 Carbon Dioxide 18.6 mmol/L (21.0-32.0) L 11/22/24 09:30 Anion Gap 18 (5-15) H 11/22/24 09:30 BUN 26 mg/dL (4-19) H 11/22/24 09:30 Creatinine 1.25 mg/dL (0.70-1.20) H 11/22/24 09:30 Est GFR (MDRD) Non-Af 64 (>60) 11/22/24 09:30 BUN/Creatinine Ratio 20.9 RATIO (10-20) H 11/22/24 09:30 Glucose 211 mg/dL (70-99) H 11/22/24 09:30 Dosing Weight Weight used for dosin kg Estimated Creatinine Clearance Estimated Creatinine Clearance: 71 Goal Trough Goal Trough: 15-20 mcg/mL Pharmacy Plan for Drug Dosing Pharmacy Plan for Drug Dosing: Pharmacy Service will continue to monitor and adjust dosing as required. NEW START IV VANCOMYCIN Consulting Physician: REGINA Indication: SEPSIS Other ABX: Cefepime Goal Trough: 15-20 SrCr: 1.25 CrCl: 71 WBC: 5.4 Weight: 97 kg Afebrile Comments: CXR -> small right pleural effusion Blood Cultures: Pending Vancomycin Dose: - LD: 2000 mg - MD: 1500 mg Q12H with first dose 11/23 @ 0400 Pending Level: 11/24 @ 0330 Date/Time Labs Ordered Labs to be done on [date and time ordered]: 11/24 @ 7
[2024-11-22] MEDS: 0.9% Normal Saline (1000mL) 1,000 ML 100 ML IV (16:51)
[2024-11-22] MEDS: Cefepime HCl 1 GM in 0.9% Normal Saline (50mL MB+) 50 ML IV ×2 (16:51→22:05)
[2024-11-22] MEDS: Vancomycin HCl 2,000 MG in 0.9% Normal Saline (500mL Bag) 500 ML 250 MG IV (18:16)
[2024-11-22 18:24] LABS: Pro- Brain NATRIURETIC PEPTIDE 11120 pg/mL (<=900)
--- NOTE | 2024-11-22 18:50 | NURSING ---
no sepsis fluid ordered per md due to elevated bnp see physician communications
--- NOTE | 2024-11-22 19:11 | CT_ITS ---
PROCEDURE: CTA CHST, ABD, PEL W AND/OR WO 11/22/2024 REASON FOR EXAM: DYSPNEA, ? SEPSIS TECHNIQUE: CTA CHST, ABD, PEL W AND/OR WO coronal and Sagittal reconstruction series were provided. One or more dose reduction techniques were used (e.g., Automated exposure control, adjustment of the mA and/or kV according to patient size, use of iterative reconstruction technique. CONTRAST: Isovue 370 VOLUME: 85 mL RADIATION DOSE SUMMARY: CTDlvol: 11+ 19 mGy DLP: 1278 mGycm FINDINGS: Findings (Non-vascular): There is mild fluid infiltration of the flanks and lower intra-abdominal wall with associated mild skin thickening. The thyroid is enlarged without discrete nodules. No suspicious mediastinal lymphadenopathy. Status post median sternotomy and CABG, with coronary artery calcifications. The heart is enlarged. There are adgglwhm-[id number] right and small left pleural effusions. Patchy consolidation is seen within the right lower lobe, which favors pneumonia given its appearance. Small volume ascites is present, most pronounced adjacent to the liver. Nodular hepatic surface contour suspicious for cirrhosis. The pancreas, spleen, and adrenal glands are unremarkable. The kidneys show no abnormality and no hydronephrosis; Mayers catheter is present. Mild fat stranding adjacent to the urinary bladder is noted. Dense colonic stool with rectal diameter up to 6.2 cm, without wall thickening. Normal caliber large and small bowel. Degenerative changes of the spine are present. Findings (Angiogram portion): The thoracic aorta and origins of the great vessels demonstrate mild atherosclerosis without aneurysmal dilatation. Pulmonary arteries are normal in caliber, without filling defects. The abdominal aorta demonstrates multiple calcified plaques without significant narrowing or aneurysmal dilatation. *Celiac artery origin: high-grade stenosis with poststenotic dilatation (unchanged). *Superior mesenteric artery origin: high-grade stenosis with poststenotic dilatation (unchanged). *Inferior mesenteric artery origin: high-grade stenosis with poststenotic dilatation (unchanged). *Right renal artery origin: mild stenosis (unchanged). *Left renal artery origin: mild stenosis (unchanged). *Right common iliac artery: aneurysmal, now 2.8 cm (previously 2.5 cm). *Right internal iliac artery: segmental high-grade stenosis (unchanged). *Right external iliac artery: calcified plaques without significant stenosis (unchanged). *Left common iliac artery: calcified plaques without significant stenosis (unchanged). *Left internal iliac artery: segmental high-grade stenosis (unchanged). *Left external iliac artery: calcified plaques without significant stenosis (unchanged). This study extends only to the level of the bifurcation of the superficial femoral and deep femoral arteries. CT/CTA Chst, Abd, Pel W and/or WO IMPRESSION: *No evidence of pulmonary embolism. *Right lower lobe consolidation with [id number] right pleural effusion, appearance favors pneumonia. Small left pleural effusion also present. 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 *High-grade stenoses of the celiac, SMA, and ESTRELLITA origins with poststenotic dila tation, unchanged. *Mild bilateral renal ostial stenoses, unchanged. *Segmental high-grade stenoses of the right and left internal iliac arteries, u nchanged. *Calcified plaques of the bilateral external iliac arteries without significant stenosis, unchanged. *Mild diffuse fluid infiltration of the flanks and anterior abdominal wall with skin thickening - correlate for edema/cellulitis. Cirrhosis. *Small volume ascites. *Enlarged heart, status post CABG, with coronary artery calcifications. Reading Location: [id number]
--- NOTE | 2024-11-22 19:14 | PN.HOSP_ITS ---
Hospitalist Note Discussed patient status at sign-out with Dr. Johnson, will add CTA chest/abd/pelvis, procalcitonin request. Pending also ABG. Noted ongoing tachypn ea with normal oxygenation and persistent tachycardia. Plan for initiate IV lasix now per Dr. Johnosn discussion also.
[2024-11-22 19:18] LABS: Mucous, Urine 0 SEEN /hpf (<or=2+); Squamous Epithelial Cells - UA 0 SEEN /hpf (0-5)
[2024-11-22 19:28] LABS: D-Dimer Quantitative (DVT/PE) 1.01 FEU/ug/m (0.27-0.49)
[2024-11-22 19:38] LABS: Color, Urine Amber (Yellow); Glucose, Dipstick 1000 mg/dl (Normal); Ketone-Dipstick 5 mg/dl (Negative); Leukocyte Esterase-Dipstick 25 /ul (Negative); Nitrite-Dipstick Negative (Negative); Occult Blood-Urine 25 /ul (Negative); Protein-Dipstick 100 mg/dl (Negative); Specific Gravity, Urine 1.025 (1.002-1.030)
[2024-11-22 19:40] LABS: Urine Bilirubin Dipstick 1 mg/dL (Negative)
[2024-11-22 19:52] LABS: Red Blood Cells-Urine 0-5 SEEN /hpf (0-5)
[2024-11-22 19:53] LABS: Fine Granular Cast- Urine 5-10 SEEN /lpf (0-5)
[2024-11-22 20:57] LABS: Magnesium 2.0 mg/dL (1.5-2.2)
[2024-11-22 21:16] LABS: Allen Test Negative; Base Excess -9 mmol/L (-2 to +2); PO2 74 mmHG (75-100); SITE R Radial; SO2 96 % (95-99)
[2024-11-22] MEDS: SACUBITRIL/VALSARTAN 24/26 MG TABLET 1 EACH PO (21:49)
[2024-11-22 22:07] LABS: Procalcitonin 10.60 ng/mL (<=0.10)
--- NOTE | 2024-11-22 22:28 | NURSING ---
Report given to Chelle COHEN, patient prepared for transport to ICU
[2024-11-22] MEDS: Furosemide 500 MG in Empty Viaflex 50 mL 1 EACH CONT INF (22:56)
[2024-11-22] MEDS: 0.9% Saline Lock 10 ML Syringe IV (22:57)
[2024-11-23] VITALS (29 sets, daily range): BP systolic 78–116; BP diastolic 54–81; PULSE 88–118; RESP 12–35; TEMP 36.3–38.7; O2SAT 94–100; BMI 29.2
--- NOTE | 2024-11-23 00:06 | PCMCONS.TICU ---
HPI Consult Data Date of Consult: 11/23/24 HPI Narrative Reason for Consultation: acute respiratory failure HPI Narrative: 64 yrs old male with past medical history of CVA, CHF with EF of 30 to 35%, GERD, HLD, , HTN, DM , COPD, Emphysema presented to ED for generalized weakness. 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, high grade stenosis of celiac, SMA, ESTRELLITA Patient had increased work of breathing and is transferred to ICU On my evaluation of patient in ICU, he is on BIPAP 15/7/28%, on lasix drip P/E: Sleepy but arousable HEENT: On BIPAP Respiratory: Decreased breath sounds more on the right side CVS; S1, S2 are well heard Abd: Soft Extre: Bilateral edema, with both leg wrapped 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 Assessment/Plan # Acute hypoxic respiratory failure Most likely due to pneumonia vs fluid overload CTA negative for PE, right pleural effusion Agree with thoracentesis plan in AM, send for pleural fluid analysis and cultures Continue with antibiotics # Sepsis Likely due to pneumonia vs cellulitis, LE in U/A Continue with antibiotics, on vancomycin/Cefepime Follow up on cultures # Hx of CHF with reported EF of 30 to 35% Currently on duiresis with lasix Caution with lasix drip for drop in blood pressure due to component of sepsis Resume home meds when able # BENOIT Monitor urine output and renal function Avoid nephrotoxins # Hx of DM ISS Monitor blood sugar # Hx of HTN Monitor blood pressure # Hx of COPD Continue with bronchodilators DVT prophylaxis: Enoxaparin Critical care time 60 minutes Entire encounter done via Telemedicine [facility] Medical History History of CVA (cerebrovascular accident) Cardiac LV ejection fraction 30-35% GERD (gastroesophageal reflux disease) Anxiety High blood cholesterol Diabetes mellitus Emphysema, unspecified COPD (chronic obstructive pulmonary disease) Decreased left ventricular function Encounter for screening for malignant neoplasm of lung in current smoker with 30 pack year history or greater Stenosis of right carotid artery Insulin dependent diabetes mellitus History of non-ST elevation myocardial infarction (NSTEMI) (06/11/18) Emphysema lung Asthma Type 2 diabetes mellitus Arthritis Pancreatitis GERD (gastroesophageal reflux disease) Nicotine dependence Atherosclerosis of coronary artery of [place] heart without angina pectoris Hyperlipidemia Essential (primary) hypertension Home Medications ?Medication ?Instructions ?Recorded ?Last Taken ?Type blood sugar diagnostic (FreeStyle #50 ea 04/02/21 Unknown Rx Test strips) blood-glucose meter (FreeStyle #1 ea 04/02/21 Unknown Rx System Kit) lancets 28 gauge (FreeStyle #50 ea 04/02/21 Unknown Rx Lancets) pen needle, diabetic 31 gauge x #100 ea 04/02/21 Unknown Rx 3/16 (1st Tier Unifine Pentips Plus) Handicap placard #1 ea 07/22/23 Unknown Rx pen needle, diabetic 31 gauge x #100 ea 10/28/23 Unknown Rx 5/16 (Comfort EZ Pen [place]) evolocumab 140 mg/mL subcutaneous 140 mg subcut Q2W cholesterol #6 mL 05/09/24 09/12/24 Rx pen injector (Repatha SureClick) insulin glargine 100 unit/mL (3 20 unit subcut DAILY Diabetes 06/17/24 09/18/24 History mL) subcutaneous pen (Lantus Solostar U-100 Insulin) omeprazole 20 mg capsule,delayed 20 mg PO DAILY reflux #90 caps 09/13/24 09/18/24 Rx release fluticasone propionate 50 2 spray intranasal DAILY PRN nasal 09/18/24 Unknown History mcg/actuation nasal congestion spray,suspension (Flonase Allergy Relief) nitroglycerin 0.4 mg sublingual 0.4 mg sublingual Q5M PRN 09/27/24 Unknown Rx tablet Cardiac/Chest Pain #25 tabs aspirin 81 mg chewable tablet 81 mg PO BREAKFAST preventative 11/03/24 Unknown Rx #90 tabs clopidogrel 75 mg tablet 75 mg PO DAILY antiplatelet #90 11/03/24 Unknown Rx tabs dapagliflozin propanediol 10 mg 10 mg PO DAILY diabetes #90 TABLETS 11/03/24 Unknown Rx tablet (Farxiga) ezetimibe 10 mg tablet 10 mg PO DAILY cholesterol #90 tabs 11/03/24 Unknown Rx albuterol sulfate 90 mcg/actuation 2 puff inhalation Q4H PRN 11/04/24 Unknown Rx aerosol inhaler shortness of breath or wheezing #6.7 grams mometasone-formoterol HFA 100 2 puff inhalation BID COPD #13 11/04/24 Unknown Rx mcg-5 mcg/actuation aerosol grams inhaler (Dulera) furosemide 40 mg tablet 40 mg PO BID diuretic 60 days #120 11/13/24 Unknown Rx tabs nicotine 21 mg/24 hr daily 1 patch transdermal DAILY #56 ea 11/13/24 Unknown Rx transdermal patch sacubitril 24 mg-valsartan 26 mg 1 tab PO BID #60 tabs 11/13/24 Unknown Rx tablet (Entresto) spironolactone 25 mg tablet 25 mg PO DAILY diuretic 60 days 11/13/24 Unknown Rx #60 tabs Allergy/AdvReac Type Severity Reaction Status Date / Time amoxicillin Allergy Angioedema Verified 11/16/24 10:06 lindane Allergy Rash Verified 11/16/24 10:06 Family History Father Asthma Alcoholism Arthritis Heart disease Hypertension High cholesterol CVA (cerebral vascular accident) Lung cancer Grandfather Myocardial infarction Surgical History S/P CABG x 4 History of hernia repair History of carotid endarterectomy (01/06/14) H/O coronary artery bypass surgery (2006) History of left heart catheterization (06/11/18) Social History household members: none Smoking Status: Light Smoker (<10/day) Tobacco: How many years used: 45 Electronic Cigarette Use: not used second hand exposure: Yes quit status: considering quitting alcohol intake: never substance use type: does not use caffeine: Yes Type: coffee Number of servings: 5 what type of physical activity do you participate in: none Objective Data Objective Data Vital Signs: Vital Signs Last response Temperature 38.8 C H 11/22/24 23:00 Temperature Source Core 11/22/24 23:00 Pulse Rate 115 H 11/22/24 23:15 Respiratory Rate 32 H 11/22/24 23:15 Respiratory Effort Short of Breath, Labored 11/22/24 20:16 Respiratory Depth Shallow 11/22/24 20:16 Respiratory Pattern Tachypnea 11/22/24 20:16 Blood Pressure 124/89 H 11/22/24 23:00 Blood Pressure Mean 100 11/22/24 23:00 Blood Pressure Source Monitor 11/22/24 23:00 Blood Pressure Position Semi-Fowlers 11/22/24 23:00 Blood Pressure Location Left Forearm 11/22/24 23:00 Pulse Ox 100 11/22/24 23:15 Oxygen Delivery Method Bi-pap 11/22/24 23:15 Oxygen Flow Rate (L/min) 4 11/22/24 23:00 Fraction of Inspired Oxygen (FIO2) 25 11/22/24 23:15 I&O: I&O Last 24 Hours 11/22/24 11/22/24 11/23/24 11:59 23:59 11:59 Intake Total 250 / 1225 975 / 1225 Balance 250 / 1225 975 / 1225 I&O: Total Stay 11/22/24 09:46 thru 11/22/24 23:20 Intake Total 1225 Balance 1225 Current Meds Ordered / Administered: Current meds ordered / Administered Generic Name Dose Route Start Last Admin Trade Name Freq PRN Reason Stop Dose Admin Acetaminophen 650 mg 11/22/24 19:13 11/22/24 23:08 Acetaminophen 325 Mg Tablet PO 650 mg Q4H PRN PRN Administration Pain 1-10 Or Fever >100.7 Albuterol/Ipratropium 3 ml 11/22/24 19:15 11/22/24 20:50 Ipratropium/Albuterol Sulfate 3 Ml Ampul.Neb INHALATION 3 ml Q6HWA.RT HARINI Administration Ezetimibe 10 mg 11/23/24 10:00 Ezetimibe 10 Mg Tablet PO DAILY HARINI Glucagon 1 mg 11/22/24 14:07 Glucagon 1 Mg/Ml Syringe IM X1 PRN HYPOGLYCEMIA Protocol Dextrose 250 mls @ 0 mls/hr 11/22/24 14:07 Dextrose 10%-Water IV .Q0M PRN HYPOGLYCEMIA Protocol As Directed Vancomycin IV-PHARMACY TO DOSE 500 mls @ 250 mls/hr 11/22/24 14:09 1 each/ Sodium Chloride IV X1 PRN Rx to Dose Protocol Cefepime HCl 1 gm/ Sodium 50 mls @ 100 mls/hr 11/22/24 15:00 11/22/24 22:35 Chloride IV Infused Q8 HARINI Infusion Sodium Chloride 250 mls @ 15 mls/hr 11/22/24 15:09 IV .[id number] PRN Saline Flush Sodium Chloride 250 mls @ 15 mls/hr 11/22/24 15:09 IV .[id number] PRN Additional IVPB Infusion Vancomycin HCl 1,500 mg/ 530 mls @ 250 mls/hr 11/23/24 04:00 Sodium Chloride IV Q12H HARINI Furosemide 500 mg/ N/A 50 mls @ 2 mls/hr 11/22/24 22:37 11/22/24 22:56 CONT INF 20 mg/hr .Q25H HARINI 2 mls/hr Administration 20 MG/HR Insulin Glargine 20 unit 11/23/24 10:00 Insulin Glargine-Yfgn 100 Unit/Ml Pen SC DAILY HARINI Insulin Human Lispro 0 unit 11/22/24 16:00 11/22/24 21:48 Insulin Lispro 100 Unit/Ml Insuln.Pen SC 4 units ACHS HARINI Administration Protocol Morphine Sulfate 2 - 4 mg 11/22/24 14:09 Morphine 2 Mg/Ml Syringe IV Q3H PRN PRN Pain Score 6-10 Morphine Sulfate 2 - 4 mg 11/22/24 14:14 Morphine 4 Mg/Ml Syringe IV Q3H PRN PRN Pain Score 6-10 Nitroglycerin 0.4 mg 11/22/24 14:09 Nitroglycerin (Inpatient Use) 0.4 Mg Tab.Subl SL Q5M PRN CARDIAC/CHEST PAIN Ondansetron HCl 4 mg 11/22/24 14:09 Ondansetron 4 Mg/2 Ml Vial IV Q8H PRN PRN NAUSEA/VOMITING Oxycodone HCl 5 mg 11/22/24 14:09 Oxycodone 5 Mg Tablet PO Q4H PRN PRN Pain Score 4-10 Pantoprazole Sodium 20 mg 11/23/24 10:00 Pantoprazole Sodium 20 Mg Tablet PO DAILY HARINI Sacubitril/Valsartan 1 each 11/22/24 22:00 11/22/24 21:49 Sacubitril/Valsartan 24/26 Mg Tablet PO 1 each BID HARINI Administration Sodium Chloride 10 - 40 ml 11/22/24 14:03 11/22/24 22:57 0.9% Saline Lock 10 Ml Syringe IV 20 ml UD PRN Administration SALINE FLUSH Spironolactone 25 mg 11/23/24 10:00 Spironolactone 25 Mg Tablet PO DAILY COUNTS INCLUDE 234 BEDS AT THE [facility] Protocol Vancomycin Protocol 1 lab 11/24/24 02:30 Vancomycin Trough/Random Due MC 11/24/24 04:30 DAILY COUNTS INCLUDE 234 BEDS AT THE [facility] Lab / Micro Data 11/22/24 09:30 11/22/24 09:30 Labs: Laboratory Results - last 24 hr 11/22/24 09:30: WBC 5.4, RBC 4.57 L, Hgb 13.6, Hct 42.5, MCV 93.0, MCH 29.8, MCHC 32.0, RDW Std Deviation 50.2 H, RDW Coeff of Maycol 14.6, Plt Count 392, MPV 9.9, Immature Gran % (Auto) 0.400, Neut % (Auto) 80.3 H, Lymph % (Auto) 12.7 L, [place] % (Auto) 6.4, Eos % (Auto) 0.0, Baso % (Auto) 0.2, Absolute Neuts (auto) 4.4, Absolute Lymphs (auto) 0.69 L, Nucleated RBC % 0, Differential Comment , PT 15.6 H, INR 1.2, APTT 29.5, Sodium 139, Potassium 4.3, Chloride 102, Carbon Dioxide 18.6 L, Anion Gap 18 H, BUN 26 H, Creatinine 1.25 H, Estim Creat Clear Calc 70.92, Est GFR (MDRD) Non-Af 64, BUN/Creatinine Ratio 20.9 H, Glucose 211 H, Calcium 9.4, Total Bilirubin 1.18, AST 33, ALT 26, Alkaline Phosphatase 127, [place] [address] H, Total Protein 7.1, Albumin 3.7, Globulin 3.3, Albumin/Globulin Ratio 1.1 11/22/24 10:00: Lactic Acid 4.1 H* 11/22/24 15:13: Magnesium 2.0, Procalcitonin 10.60 H 11/22/24 15:30: Lactic Acid 4.8 H* 11/22/24 17:50: POC Glucose 275 H 11/22/24 18:01: D-Dimer Quant (PE/DVT) 1.01 H* 11/22/24 19:01: Urine Color [place], Urine Clarity Clear, Urine pH 5.0, Ur Specific [place] 1.025, Urine Protein 100 H, Urine Glucose (UA) 1000 H, Urine Ketones 5 H, Urine Occult Blood 25 H, Urine Nitrite Negative, Urine Bilirubin 1 H, Urine Urobilinogen 1 H, Ur Leukocyte Esterase 25 H, Urine RBC 0-5 SEEN, Urine WBC 5-10 SEEN, Ur Squamous Epith Cells 0 SEEN, Urine Bacteria 0 SEEN, Hyaline Casts 25-50 SEEN, Fine Granular Casts 5-10 SEEN, Coarse Granular Casts 0-5 SEEN, Urine Mucus 0 SEEN 11/22/24 20:22: Lactic Acid 5.6 H* 11/22/24 21:45: POC Glucose 221 H ABG Data ABG results: ABG 11/22/24 21:13 Specimen Type ART Sample Site R Radial pH 7.43 Bicarbonate Actual 15.0 L Total CO2 16 Base Excess -9 L O2 Saturation 96 ABG pCO2 22.6 L ABG pO2 74 L Clement Test Negative O2 Delivery Device Room Air Vent Mode Not entered Rhythm Strip Rhythm Strip: Sinus Tach Rate: 111 Ectopy: None Imaging Radiology Impression Chest X-Ray 11/22/24 10:41 IMPRESSION: Subsegmental atelectasis at the lung bases. Small right pleural effusion. Reading Location: [id number] Hip/Pelvis X-Ray 11/22/24 10:50 IMPRESSION: DEGENERATIVE OSTEOARTHROSIS. NO ACUTE FINDINGS. Reading Location: [id number] Venous Doppler Study 11/22/24 14:09 Interpretation Summary Deep veins of the lower extremities are bilaterally patent and compressible segmentally. There is no evidence of deep vein thrombosis on either side. Valvular competence appears intact within the proximal deep venous systems bilaterally. The great saphenous veins appear bilaterally patent and compressible segmentally. Ordering Physician: Flori Johnson Referring Physician: Ant Nuñez Performed By: Yonas Lock, RVT Chest/Abdomen/Pelvis CTA 11/22/24 19:11 IMPRESSION: *No evidence of pulmonary embolism. *Right lower lobe consolidation with [id number] right pleural effusion, appearance favors pneumonia. Small left pleural effusion also present. 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 *High-grade stenoses of the celiac, SMA, and ESTRELLITA origins with poststenotic dilatation, unchanged. *Mild bilateral renal ostial stenoses, unchanged. *Segmental high-grade stenoses of the right and left internal iliac arteries, unchanged. *Calcified plaques of the bilateral external iliac arteries without significant stenosis, unchanged. *Mild diffuse fluid infiltration of the flanks and anterior abdominal wall with skin thickening - correlate for edema/cellulitis. Cirrhosis. *Small volume ascites. *Enlarged heart, status post CABG, with coronary artery calcifications. Reading Location: [id number] Assessment and Plan . Assessment and plan: Critical Care Time: The entirety of this encounter was done via Telemedicine
[2024-11-23 00:34] LABS: Reflex Lactate? Y
[2024-11-23] MEDS: 0.9% Saline Lock 10 ML Syringe IV ×3 (01:17→21:03)
[2024-11-23] MEDS: Vancomycin HCl 1,500 MG in 0.9% Normal Saline (500mL Bag) 500 ML 250 MG IV ×2 (04:52→16:18)
[2024-11-23 05:31] LABS: Hematocrit 39.3 % (40-54); Hemoglobin 13.3 g/dL (13.0-16.5); Immature Granulocytes Count 0.060 X10^3/uL (0.0-0.0); Mean Corp Hgb Conc 33.8 g/dL (32-36); Mean Corpuscular Volume 90.3 fL (80-94); Mean Platelet Vol. 9.8 fl (6.2-12.0); NRBC Flagged by Analyzer 0 % (0-5); POSITIVE MORPHOLOGY YES; Platelet Count 309 K/mm3 (150-450); RBC Distribution Width CV 14.8 % (11.6-14.6); RBC Distribution Width SD 49.0 fl (35.1-43.9); Red Blood Count 4.35 M/mm3 (4.6-6.2); White Blood Count 8.8 K/mm3 (4.4-11.0)
[2024-11-23 05:41] LABS: Prothrombin Time (Protime)PT. 18.6 SECONDS (11.7-14.9)
[2024-11-23 05:42] LABS: Partial Thromboplast Time 35.0 Seconds (24.1-36.2)
[2024-11-23 06:06] LABS: Cholesterol 60 mg/dL (<=200); Low Density Lipoprotein Calc. 4 mg/dL; Triglycerides 69 mg/dL; Very Low Density Lipoprotein 14 mg/dL (5-40); cholesterol:hdl ratio screen 1.41
[2024-11-23 06:24] LABS: Anion Gap 18 (5-15); BUN 36 mg/dL (4-19); BUN/Creat Ratio 25.6 RATIO (10-20); Calcium,Total 8.8 mg/dL (7.6-11.0); Carbon Dioxide 16.8 mmol/L (21.0-32.0); Chloride 102 mmol/L (98-108); Estimated Creatinine Clearance 62.72 ml/min (50-250); Glucose 195 mg/dL (70-99); Potassium 4.2 mmol/L (3.3-5.1)
[2024-11-23 06:37] LABS: LDH 303 U/L (87-241)
[2024-11-23] MEDS: Cefepime HCl 1 GM in 0.9% Normal Saline (50mL MB+) 50 ML IV ×3 (07:11→21:04)
[2024-11-23 07:16] LABS: Differential Indicated SCAN CRITERIA MET
[2024-11-23 07:17] LABS: Polychromasia 1+
[2024-11-23] MEDS: SACUBITRIL/VALSARTAN 24/26 MG TABLET 1 EACH PO ×2 (10:54→21:04)
[2024-11-23] MEDS: Insulin Glargine-YFGN 100 UNIT/ML Pen 20 UNIT SC (10:55)
--- NOTE | 2024-11-23 12:49 | PN_ITS ---
Subjective Subjective patient seen and examined with his nurse by his bedside. He was emergently transferred to the ICU yesterday. He is now requiring 2L of oxygen. CTA chest abdomen pelvis done yesterday showed evidence of bilateral pleural effusion. He is due for thoracentesis today. He also developed a fever and remains tachypneic. He required BiPAP last night but is down to 2 L of oxygen this morning. Objective Data Objective Data Vital Signs: Vital Signs Temp Pulse Resp BP Pulse Ox O2 Del Method O2 Flow Rate 100.5 F H 100 27 H 95/63 95 Nasal Cannula 2 11/23/24 09:00 11/23/24 09:00 11/23/24 09:00 11/23/24 09:00 11/23/24 09:00 11/23/24 12:00 11/23/24 12:00 FiO2 25 11/23/24 08:00 Oxygen Flow Rate (L/min) 2 Oxygen Delivery Method Nasal Cannula Weight: 209 lb 7.026 oz Body Mass Index (BMI) 29.2 Intake & Output: Intake and Output for Last 24 Hours 11/21/24 11/22/24 11/23/24 23:59 23:59 23:59 Intake Total 1225 / 1225 530 / 530 Output Total 2700 / 2700 Balance 1225 / 1225 -2170 / -2170 Lab / Micro Data 11/23/24 04:59 11/23/24 04:59 Labs: Laboratory Results - last 24 hr 11/22/24 09:30: [place] [address] H 11/22/24 15:13: Magnesium 2.0, Procalcitonin 10.60 H 11/22/24 15:30: Lactic Acid 4.8 H* 11/22/24 17:50: POC Glucose 275 H 11/22/24 18:01: D-Dimer Quant (PE/DVT) 1.01 H* 11/22/24 19:01: Urine Color [place], Urine Clarity Clear, Urine pH 5.0, Ur Specific [place] 1.025, Urine Protein 100 H, Urine Glucose (UA) 1000 H, Urine Ketones 5 H, Urine Occult Blood 25 H, Urine Nitrite Negative, Urine Bilirubin 1 H, Urine Urobilinogen 1 H, Ur Leukocyte Esterase 25 H, Urine RBC 0-5 SEEN, Urine WBC 5-10 SEEN, Ur Squamous Epith Cells 0 SEEN, Urine Bacteria 0 SEEN, Hyaline Casts 25-50 SEEN, Fine Granular Casts 5-10 SEEN, Coarse Granular Casts 0-5 SEEN, Urine Mucus 0 SEEN 11/22/24 20:22: Lactic Acid 5.6 H* 11/22/24 21:45: POC Glucose 221 H 11/22/24 23:30: Ur Random Sodium 73, Urine Potassium 27.7, Urine Chloride 79 11/23/24 00:59: Lactic Acid 4.4 H* 11/23/24 04:59: WBC 8.8, RBC 4.35 L, Hgb 13.3, Hct 39.3 L, MCV 90.3, MCH 30.6, M CHC 33.8 D, RDW Std Deviation 49.0 H, RDW Coeff of Maycol 14.8 H, Plt Count 309, MPV 9.8, Immature Gran % (Auto) 0.700, Neut % (Auto) 82.1 H, Lymph % (Auto) 11.7 L, [place] % (Auto) 5.3, Eos % (Auto) 0.0, Baso % (Auto) 0.2, Absolute Neuts (auto) 7.2, Absolute Lymphs (auto) 1.03, Nucleated RBC % 0, Platelet Estimate ADEQUATE, Polychromasia 1+, PT 18.6 H, INR 1.5, APTT 35.0, Sodium 136, Potassium 4.2, Chloride 102, Carbon Dioxide 16.8 L, Anion Gap 18 H, BUN 36 H, Creatinine 1.40 H , Estim Creat Clear Calc 62.72, Est GFR (MDRD) Non-Af 56 L, BUN/Creatinine Ratio 25.6 H, Glucose 195 H, Calcium 8.8, Lactate Dehydrogenase 303 H, Total Protein 6.2, Triglycerides 69, Cholesterol 60, LDL Cholesterol, Calc 4, VLDL Cholesterol 14, HDL Cholesterol 42, Cholesterol/HDL Ratio 1.41, TSH 1.250 11/23/24 10:21: POC Glucose 158 H Micro: Microbiology 11/22/24 17:33 Wound - Ankle Gram Stain - Final 11/22/24 17:33 Wound - Ankle Wound Culture - Preliminary GNR lactose hi ranger operator GNR lactose hi ranger operator#2 11/22/24 19:01 Urine, Catheterized Urine Culture - Preliminary Culture exhibits no growth. 11/22/24 10:00 Blood Culture (Wb) - Anticubital Right Blood Culture - Preliminary GNR lactose hi ranger operator 11/22/24 22:44 Nasal Secretion MRSA (PCR) - Final 11/22/24 23:05 Mucosa - Nasopharyngeal Respiratory Panel (PCR) - Final 11/22/24 19:01 Urine Catheter - [place] Legionella Antigen - Final 11/22/24 19:01 Urine Catheter - [place] Streptococcus pneumoniae Antigen (M - Final ABG Data ABG results: ABG 11/22/24 21:13 Specimen Type ART Sample Site R Radial pH 7.43 Bicarbonate Actual 15.0 L Total CO2 16 Base Excess -9 L O2 Saturation 96 ABG pCO2 22.6 L ABG pO2 74 L Clement Test Negative O2 Delivery Device Room Air Vent Mode Not entered Radiography Diagnostic Testing: Radiology Impression Venous Doppler Study 11/22/24 14:09 Interpretation Summary Deep veins of the lower extremities are bilaterally patent and compressible segmentally. There is no evidence of deep vein thrombosis on either side. Valvular competence appears intact within the proximal deep venous systems bilaterally. The great saphenous veins appear bilaterally patent and compressible segmentally. Ordering Physician: Flori Johnson Referring Physician: Ant Nuñez Performed By: Yonas Lock RVT Chest/Abdomen/Pelvis CTA 11/22/24 19:11 IMPRESSION: *No evidence of pulmonary embolism. *Right lower lobe consolidation with [id number] right pleural effusion, appearance favors pneumonia. Small left pleural effusion also present. 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 *High-grade stenoses of the celiac, SMA, and ESTRELLITA origins with poststenotic dilatation, unchanged. *Mild bilateral renal ostial stenoses, unchanged. *Segmental high-grade stenoses of the right and left internal iliac arteries, unchanged. *Calcified plaques of the bilateral external iliac arteries without significant stenosis, unchanged. *Mild diffuse fluid infiltration of the flanks and anterior abdominal wall with skin thickening - correlate for edema/cellulitis. Cirrhosis. *Small volume ascites. *Enlarged heart, status post CABG, with coronary artery calcifications. Reading Location: [facility] Rhythm Strip Rhythm Strip: Sinus Tach Rate: 111 Ectopy: None Physical Exam Const alert and oriented x3 Constitutional Narrative: frail, weak. General Appearance: cooperative HEENT normocephalic, head/scalp atraumatic and oropharynx normal Eyes PERRL, EOMs intact bilaterally and conjunctivae normal Neck supple and no JVD Lymph Lymphatic: no lymphedema noted Resp no retractions Resp Narrative: tachypneic, on 2L of oxygen by nasal canula. Diminished breath sounds bilaterally, no wheezes or crackles. Cardio regular rate, regular rhythm, S1 normal heart sound, S2 normal heart sound and no murmurs Cardio Narrative: tachycardia has resolved GI normal to inspection, nondistended, normoactive bowel sounds, soft to palpation and non-tender Extremity Extremity Narrative: has erythema of lower extremities bilaterally, from ankle to dent, with superficial ulcerations with some discharge over RLE dent. Mild differential warmth and swelling. Both LEs now wrapped in bandage. Skin Skin Narrative: as under extremities Neuro oriented x3, CN's II-XII intact bilaterally and moves all extremities Sensorium / Orientation: awake Psych Psych Narrative: weak, frail Mood & Affect: flat affect Assessment & Plan Assessment/Plan (1) Severe sepsis: PLAN: Plan #Sepsis due to cellulitis of the lower extremities and pneumonia with bilateral pleural effusion. * Patient admitted with complaint of weakness and failure to thrive. He did meet sepsis criteria as he is tachycardic and tachypneic and lactic acid is also elevated at 4 which meets evidence of endorgan damage. WBC is however 8.8 today. * Patient became more tachypneic and tachycardic as well as lethargic after he got to the floor. Based on this a stat ABG and a CT chest abdomen pelvis were ordered yesterday. * ABG showed pH of 7.43 with bicarb of 15 and PCO2 of 22.6 as well as PO2 of 74. CT chest showed bilateral pleural effusion, larger on the right and evidence of right lower lobe consolidation indicated of pneumonia. * He was emergently transferred to the ICU. He required BiPAP overnight but is now on 2 L of oxygen. * Critical care consulted. Blood cultures and urine cultures pending. Remains on IV vancomycin and cefepime. For diagnostic thoracentesis today. * Titrate oxygen to maintain saturation above 90%. Breathing treatments bronchodilators. ID also consulted. * He was also started on IV Lasix and is now on Lasix drip. * Lactic acid started trending downwards. Was 4.4 this morning. * critical care also on board * * # Acute on chronic Heart failure with reduced ejection fraction: * proBNP was 11,001 20 * Breathing treatments bronchodilators. * Now on IV Lasix drip. Monitor intake and output. Fluid restriction to 1500 cc daily. #BENOIT * Creatinine is up to 1.4 from 1.25 yesterday. Baseline creatinine from 11/13/2024 was 0.98. * Does meet criteria for BENOIT. This likely exacerbated by the Lasix drip that he is on. Unable to hydrate with IV fluids now due to patient having acute on chronic heart failure. * #Type 2 diabetes mellitus:?20 units daily. Insulin sliding scale. Accu-Cheks ACHS. Also on dapagliflozin. Also on Entresto As well as spironolactone. #CAD: On aspirin and Plavix as well as high intensity statin. Also on Repatha. #Debility and weakness with failure to thrive. Patient states he passed out at home. Apparently seems like he was very weak and slid to the floor and did not hit his head. PT OT on board. Fall precautions. #Nicotine dependence: Counseled to quit. Nicotine patch 21 mg daily. CODE STATUS: Full code * Charges/Coding Visit Charges Inpatient E&M: 10954 Subs Hosp L3
--- NOTE | 2024-11-23 13:22 | WOUNDNOTE ---
wound photo: right lower leg
--- NOTE | 2024-11-23 13:23 | WOUNDNOTE ---
wound photo:right lower leg
--- NOTE | 2024-11-23 13:24 | WOUNDNOTE ---
wound photo: left medial lower leg/ankle
--- NOTE | 2024-11-23 13:25 | WOUNDNOTE ---
wound photo: left lower leg/foot
--- NOTE | 2024-11-23 13:26 | WOUNDNOTE ---
wound photo: left lower leg
--- NOTE | 2024-11-23 13:26 | WOUNDNOTE ---
wound photo: left medial lower leg/ankle
--- NOTE | 2024-11-23 14:10 | CHAPLAIN ---
Type of Pastoral Visit _x__ Initial Visit ___ Follow-up Visit ___ On-call Visit ___ General Patient Visit ___ Spiritual Assessment ___ Family Conference ___ Bereavement ___ Rapid Response ___ Code Blue ___ Other (describe below) Pastoral Care Referral From _x__ Patient ___ Family ___ Nurse ___ Physician ___ Ion Implant Machine Operator ___ House Piping Inspector ___ Other (describe below) Sacrament/Intervention _x__ Active listening ___ Anointing ___ Catholic ___ Bereavement ___ Communion ___ Nadine exploration ___ ___ Life review _x__ Prayer ___ Reconciliation ___ Sacrament of Sick _x__ Supportive presence ___ Wedding ___ Other (describe below) Pastoral Comments 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
--- NOTE | 2024-11-23 14:46 | CON.PCM.ID_ITS ---
Assessment & Plan Assessment/Plan (1) Severe sepsis: PLAN: GNR bacteremia, suspect source L ankle wound vs pneumonia. Cont vanc/cefepime Will follow, thank you (2) Bacteremia due to Gram-negative bacteria: HPI Consult Data Date of Consult: 11/23/24 HPI Narrative Reason for Consultation: bacteremia HPI Narrative: KANA MEJAI, is a 64 M with h/o stroke, emphysema, CHF, presented with acute onset weakness, fever, chills, not feeling well. Recently on abx for BLE cellulitis. Not on O2 at home. Denies cough or dypnsea, no abd pain, no dysuria. Admitted, now on vanc/cefepime in icu. Feeling a little better. Full ROS performed and neg except as noted above. [facility] Medical History History of CVA (cerebrovascular accident) Cardiac LV ejection fraction 30-35% GERD (gastroesophageal reflux disease) Anxiety High blood cholesterol Diabetes mellitus Emphysema, unspecified COPD (chronic obstructive pulmonary disease) Decreased left ventricular function Encounter for screening for malignant neoplasm of lung in current smoker with 30 pack year history or greater Stenosis of right carotid artery Insulin dependent diabetes mellitus History of non-ST elevation myocardial infarction (NSTEMI) (06/11/18) Emphysema lung Asthma Type 2 diabetes mellitus Arthritis Pancreatitis GERD (gastroesophageal reflux disease) Nicotine dependence Atherosclerosis of coronary artery of [place] heart without angina pectoris Hyperlipidemia Essential (primary) hypertension Home Medications ?Medication ?Instructions ?Recorded ?Last Taken ?Type blood sugar diagnostic (FreeStyle #50 ea 04/02/21 Unkn own Rx Test strips) blood-glucose meter (FreeStyle #1 ea 04/02/21 Unknown Rx System Kit) lancets 28 gauge (FreeStyle #50 ea 04/02/21 Unknown Rx Lancets) pen needle, diabetic 31 gauge x #100 ea 04/02/21 Unkno wn Rx 3/16 (1st Tier Unifine Pentips Plus) Handicap placard #1 ea 07/22/23 Unknown Rx pen needle, diabetic 31 gauge x #100 ea 10/28/23 Unkno wn Rx 5/16 (Comfort EZ Pen [place]) evolocumab 140 mg/mL subcutaneous 140 mg subcut Q2W ch olesterol #6 mL 05/09/24 09/12/24 Rx pen injector (Repatha SureClick) insulin glargine 100 unit/mL (3 20 unit subcut DAILY D iabetes 06/17/24 09/18/24 History mL) subcutaneous pen (Lantus Solostar U-100 Insulin) omeprazole 20 mg capsule,delayed 20 mg PO DAILY reflux #90 caps 09/13/24 09/18/24 Rx release fluticasone propionate 50 2 spray intranasal DAILY PRN nasal 09/18/24 Unknown History mcg/actuation nasal congestion spray,suspension (Flonase Allergy Relief) nitroglycerin 0.4 mg sublingual 0.4 mg sublingual Q5M PRN 09/27/24 Unknown Rx tablet Cardiac/Chest Pain #25 tabs aspirin 81 mg chewable tablet 81 mg PO BREAKFAST preve ntative 11/03/24 Unknown Rx #90 tabs clopidogrel 75 mg tablet 75 mg PO DAILY antiplatelet #90 11/03/24 Unknown Rx tabs dapagliflozin propanediol 10 mg 10 mg PO DAILY diabete s #90 TABLETS 11/03/24 Unknown Rx tablet (Farxiga) ezetimibe 10 mg tablet 10 mg PO DAILY cholesterol # 90 tabs 11/03/24 Unknown Rx albuterol sulfate 90 mcg/actuation 2 puff inhalation Q 4H PRN 11/04/24 Unknown Rx aerosol inhaler shortness of breath or wheez ing #6.7 grams mometasone-formoterol HFA 100 2 puff inhalation BID CO PD #13 11/04/24 Unknown Rx mcg-5 mcg/actuation aerosol grams inhaler (Dulera) furosemide 40 mg tablet 40 mg PO BID diuretic 60 day s #120 11/13/24 Unknown Rx tabs nicotine 21 mg/24 hr daily 1 patch transdermal DAILY # 56 ea 11/13/24 Unknown Rx transdermal patch sacubitril 24 mg-valsartan 26 mg 1 tab PO BID #60 tabs 11/13/24 Unknown Rx tablet (Entresto) spironolactone 25 mg tablet 25 mg PO DAILY diuretic 60 days 11/13/24 Unknown Rx #60 tabs Allergy/AdvReac Type Severity Reaction Status Date / Time amoxicillin Allergy Angioedema Verified 11/16/24 10:06 lindane Allergy Rash Verified 11/16/24 10:06 Family History Father Asthma Alcoholism Arthritis Heart disease Hypertension High cholesterol CVA (cerebral vascular accident) Lung cancer Grandfather Myocardial infarction Surgical History S/P CABG x 4 History of hernia repair History of carotid endarterectomy (01/06/14) H/O coronary artery bypass surgery (2006) History of left heart catheterization (06/11/18) Social History household members: none Smoking Status: Light Smoker (<10/day) Tobacco: How many years used: 45 Electronic Cigarette Use: not used second hand exposure: Yes quit status: considering quitting alcohol intake: never substance use type: does not use caffeine: Yes Type: coffee Number of servings: 5 what type of physical activity do you participate in: none Physical Exam Const alert and no apparent distress General Appearance: cooperative HEENT normocephalic and head/scalp atraumatic Eyes PERRL and EOMs intact bilaterally Neck supple and No nodes Resp Auscultation: diminished lung sounds Cardio Rate: tachycardic GI soft to palpation, non-tender and non-distended Extremity General Extremity: edema Skin Skin Narrative: BLE wrapped. Reviewed wound photos, L medial ankle shallow wound with surrounding cellulitis. Neuro CN's II-XII intact bilaterally Lab / Micro Data Attestation: I reviewed the patient's lab results. 11/23/24 04:59 11/23/24 04:59 Labs: Laboratory Results - last 24 hr 11/22/24 09:30: [place] [address] H 11/22/24 15:13: Magnesium 2.0, Procalcitonin 10.60 H 11/22/24 15:30: Lactic Acid 4.8 H* 11/22/24 17:50: POC Glucose 275 H 11/22/24 18:01: D-Dimer Quant (PE/DVT) 1.01 H* 11/22/24 19:01: Urine Color [place], Urine Clarity Clear, Urine pH 5.0, Ur Specific [place] 1.025, Urine Protein 100 H, Urine Glucose (UA) 1000 H, Urine Ketones 5 H, Urine Occult Blood 25 H, Urine Nitrite Negative, Urine Bilirubin 1 H, Urine Urobilinogen 1 H, Ur Leukocyte Esterase 25 H, Urine RBC 0-5 SEEN, Urine WBC 5-10 SEEN, Ur Squamous Epith Cells 0 SEEN, Urine Bacteria 0 SEEN, Hyaline Casts 25-50 SEEN, Fine Granular Casts 5-10 SEEN, Coarse Granular Casts 0-5 SEEN, Urine Mucus 0 SEEN 11/22/24 20:22: Lactic Acid 5.6 H* 11/22/24 21:45: POC Glucose 221 H 11/22/24 23:30: Ur Random Sodium 73, Urine Potassium 27.7, Urine Chloride 79 11/23/24 00:59: Lactic Acid 4.4 H* 11/23/24 04:59: WBC 8.8, RBC 4.35 L, Hgb 13.3, Hct 39.3 L, MCV 90.3, MCH 30.6, M CHC 33.8 D, RDW Std Deviation 49.0 H, RDW Coeff of Maycol 14.8 H, Plt Count 309, MPV 9.8, Immature Gran % (Auto) 0.700, Neut % (Auto) 82.1 H, Lymph % (Auto) 11.7 L, [place] % (Auto) 5.3, Eos % (Auto) 0.0, Baso % (Auto) 0.2, Absolute Neuts (auto) 7.2, Absolute Lymphs (auto) 1.03, Nucleated RBC % 0, Platelet Estimate ADEQUATE, Polychromasia 1+, PT 18.6 H, INR 1.5, APTT 35.0, Sodium 136, Potassium 4.2, Chloride 102, Carbon Dioxide 16.8 L, Anion Gap 18 H, BUN 36 H, Creatinine 1.40 H , Estim Creat Clear Calc 62.72, Est GFR (MDRD) Non-Af 56 L, BUN/Creatinine Ratio 25.6 H, Glucose 195 H, Calcium 8.8, Lactate Dehydrogenase 303 H, Total Protein 6.2, Triglycerides 69, Cholesterol 60, LDL Cholesterol, Calc 4, VLDL Cholesterol 14, HDL Cholesterol 42, Cholesterol/HDL Ratio 1.41, TSH 1.250 11/23/24 10:21: POC Glucose 158 H Micro: Microbiology 11/22/24 17:33 Wound - Ankle Gram Stain - Final 11/22/24 17:33 Wound - Ankle Wound Culture - Preliminary GNR lactose abrasive grader helper GNR lactose abrasive grader helper#2 11/22/24 19:01 Urine, Catheterized Urine Culture - Preliminary Culture exhibits no growth. 11/22/24 10:00 Blood Culture (Wb) - Anticubital Right Blood Culture - Preliminary GNR lactose abrasive grader helper 11/22/24 22:44 Nasal Secretion MRSA (PCR) - Final 11/22/24 23:05 Mucosa - Nasopharyngeal Respiratory Panel (PCR) - Final 11/22/24 19:01 Urine Catheter - Mayers Legionella Antigen - Final 11/22/24 19:01 Urine Catheter - Mayers Streptococcus pneumoniae Antigen (M - Final ABG Data ABG results: ABG 11/22/24 21:13 Specimen Type ART Sample Site R Radial pH 7.43 Bicarbonate Actual 15.0 L Total CO2 16 Base Excess -9 L O2 Saturation 96 ABG pCO2 22.6 L ABG pO2 74 L Clement Test Negative O2 Delivery Device Room Air Vent Mode Not entered Rhythm Strip Rhythm Strip: Sinus Tach Rate: 111 Ectopy: None Imaging Radiology Impression Venous Doppler Study 11/22/24 14:09 Interpretation Summary Deep veins of the lower extremities are bilaterally patent and compressible segmentally. There is no evidence of deep vein thrombosis on either side. Valvular competence appears intact within the proximal deep venous systems bilaterally. The great saphenous veins appear bilaterally patent and compressible segmentally. Ordering Physician: Flori Johnson Referring Physician: Ant Nuñez Performed By: Yonas Lock RVT Chest/Abdomen/Pelvis CTA 11/22/24 19:11 IMPRESSION: *No evidence of pulmonary embolism. *Right lower lobe consolidation with [id number] right pleural effusion, appearance favors pneumonia. Small left pleural effusion also present. 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 *High-grade stenoses of the celiac, SMA, and ESTRELLITA origins with poststenotic dilatation, unchanged. *Mild bilateral renal ostial stenoses, unchanged. *Segmental high-grade stenoses of the right and left internal iliac arteries, unchanged. *Calcified plaques of the bilateral external iliac arteries without significant stenosis, unchanged. *Mild diffuse fluid infiltration of the flanks and anterior abdominal wall with skin thickening - correlate for edema/cellulitis. Cirrhosis. *Small volume ascites. *Enlarged heart, status post CABG, with coronary artery calcifications. Reading Location: [id number]
--- NOTE | 2024-11-23 15:50 | CASEMGMT ---
RN CM Readmission Chart Review Index: 11/10-. Dx: Acute HF Exacerbation Current: 11/22/24. Dx: FTT, SIRS, BLE Cellulitis From the index admission, the patient was discharged home. The patient lives at home with his son, Jaylen, and grandson, Eddy, who has autism. 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 The patient is active with [facility]. From the index admission, it was noted that a green sheet was placed on the chart for a FWW, as well as possible oxygen, in case the patient was to be discharged over the weekend. Per chart review, the patient was discharged on Thursday, 11/13. The patient was also discharged with two new prescriptions. The patient was advised to follow up with his senior animal trainer as well as his PCP. The patient did not answer the RN CM discharge follow-up phone call and did not return the call after a VM was left. The patient re-presented to [facility] with weakness. Per chart review, the patient slid to the floor, but did not fall. The patient did not hit his head. The patient was admitted to the ICU (per H&P) to be managed for disability and weakness, and SIRS criteria likely due to lower extremity cellulitis. Please review [facility] social work notes. This RN CM to the patient room at this time. Patient is currently sitting up in the chair and is A&Ox4. Patient states that neither a shower chair or a walker was set up for the patient. This copy writer noted that the [facility] director of social work is encouraging the patient to get a hospital bed for home use. This RN CM inquired if the patient would like this. However, the patient denies the need currently. Patient states that he was able to get his two new prescriptions (Entresto and nicotine patch) and also take his other medications as ordered. The patient states that he was checking his blood sugar levels and taking his insulin as ordered. The patient also states to this copy writer that he followed up with his PCP and senior animal trainer in between admissions. Moving forward, the discharge plan is to be determined. Wound RN and ID are consulted. The patient is currently requiring additional oxygen and may qualify for home oxygen use. The patient would also like a shower chair and FWW as well. The patient declines wanting to review a list of local and network DME agencies and states that he would prefer to go through [employer] (if the patient were to discharge home from [facility]). CM to follow. Regarding wound care, the patient states that his ex- is also able to assist at home. However, noted that the patient is a heavy to assist per nursing. See physical therapy evaluation. At this time, the patient states that it is too early to tell what he will need or want at the time of discharge. CM and SW to follow for potential care home facility or home healthcare needs. Patient denies any further questions or concerns at this time. Care management to follow. Tom COMBS RN, CM
[2024-11-23] MEDS: 0.9% Normal Saline (500mL Bag) 500 ML 999 ML IV (17:37)
[2024-11-24] VITALS (37 sets, daily range): BP systolic 73–125; BP diastolic 51–91; PULSE 91–106; RESP 12–30; TEMP 37.1–37.9; O2SAT 95–100
[2024-11-24 04:21] LABS: Hematocrit 38.9 % (40-54); Hemoglobin 12.7 g/dL (13.0-16.5); Immature Granulocytes Count 0.110 X10^3/uL (0.0-0.0); Mean Corp Hgb Conc 32.6 g/dL (32-36); Mean Corpuscular Volume 91.5 fL (80-94); Mean Platelet Vol. 9.7 fl (6.2-12.0); NRBC Flagged by Analyzer 0 % (0-5); POSITIVE MORPHOLOGY YES; Platelet Count 298 K/mm3 (150-450); RBC Distribution Width CV 14.7 % (11.6-14.6); RBC Distribution Width SD 48.9 fl (35.1-43.9); Red Blood Count 4.25 M/mm3 (4.6-6.2); White Blood Count 12.1 K/mm3 (4.4-11.0)
[2024-11-24 04:28] LABS: Differential Indicated SCAN CRITERIA MET
[2024-11-24 04:57] LABS: Anion Gap 14 (5-15); BUN 38 mg/dL (4-19); BUN/Creat Ratio 30.2 RATIO (10-20); Calcium,Total 8.7 mg/dL (7.6-11.0); Carbon Dioxide 20.0 mmol/L (21.0-32.0); Chloride 100 mmol/L (98-108); Estimated Creatinine Clearance 70.24 ml/min (50-250); Glucose 138 mg/dL (70-99); Potassium 4.1 mmol/L (3.3-5.1); Vancomycin, Trough Level 20.8 ug/mL (5.0-15.0)
--- NOTE | 2024-11-24 05:07 | PCM.RX.CS ---
Consult Antibiotic Management Pharmacy has been consulted to manage selected antibiotic: Vancomycin Type of Intervention Type of Consult: Follow-up Labs Labs: Sodium 134 mmol/L (133-145) 11/24/24 04:10 Potassium 4.1 mmol/L (3.3-5.1) 11/24/24 04:10 Chloride 100 mmol/L (98-108) 11/24/24 04:10 Carbon Dioxide 20.0 mmol/L (21.0-32.0) L 11/24/24 04:10 Anion Gap 14 (5-15) 11/24/24 04:10 BUN 38 mg/dL (4-19) H 11/24/24 04:10 Creatinine 1.25 mg/dL (0.70-1.20) H 11/24/24 04:10 Est GFR (MDRD) Non-Af 64 (>60) 11/24/24 04:10 BUN/Creatinine Ratio 30.2 RATIO (10-20) H 11/24/24 04:10 Glucose 138 mg/dL (70-99) H 11/24/24 04:10 Vancomycin Trough 20.8 ug/mL (5.0-15.0) H 11/24/24 04:10 Microbiology Microbiology: Microbiology 11/22/24 17:33 Wound - Ankle Gram Stain - Final 11/22/24 17:33 Wound - Ankle Wound Culture - Preliminary GNR lactose community relations director GNR lactose community relations director#2 11/22/24 19:01 Urine, Catheterized Urine Culture - Preliminary Culture exhibits no growth. 11/22/24 10:00 Blood Culture (Wb) - Anticubital Right Blood Culture - Preliminary GNR lactose community relations director 11/22/24 22:44 Nasal Secretion MRSA (PCR) - Final 11/22/24 23:05 Mucosa - Nasopharyngeal Respiratory Panel (PCR) - Final 11/22/24 19:01 Urine Catheter - Mayers Legionella Antigen - Final 11/22/24 19:01 Urine Catheter - Mayers Streptococcus pneumoniae Antigen (M - Final Goal Trough Goal Trough: 15-20 mcg/mL Pharmacy Plan for Drug Dosing Pharmacy Plan for Drug Dosing: Pharmacy Service will continue to monitor and adjust dosing as required. TROUGH 20.8 @ 11.5 HOURS. HOLD DOSE AND DRAW RANDOM LEVEL IN 8 HOURS Follow-Up Labs Follow-Up Labs: Trough: Vancomycin Date/Time Labs Ordered Labs to be done on [date and time ordered]: 8/21 @ 9611
[2024-11-24 05:09] LABS: Differential Comment SCANNED
[2024-11-24] MEDS: Cefepime HCl 1 GM in 0.9% Normal Saline (50mL MB+) 50 ML IV ×3 (06:18→21:22)
--- NOTE | 2024-11-24 06:50 | PN.CC_ITS ---
Assessment & Plan Assessment/Plan (1) Bacteremia due to Gram-negative bacteria: (2) Severe sepsis: PLAN: Plan RECOMMENDATIONS: 1. Wean supplemental oxygen to maintain saturations at or above 90%. 2. Continue to hold diuretics for now. 3. Continue antimicrobials per ID recommendations. 4. Encourage incentive spirometer use and mobilize patient as tolerated. IMPRESSIONS: 1. Acute hypoxemic respiratory failure Clinical concern for underlying pneumonia versus exacerbation of heart failure with reduced ejection fraction. The patient has been maintained on antimicrobials. In addition, he was started on a continuous Lasix infusion, which was ultimately discontinued due to hemodynamic instability. However, the patient's respiratory status has improved. Continue to wean supplemental oxygen to maintain saturations at or above 90%. Continue empiric antimicrobials. 2. Sepsis Likely related to underlying pneumonia versus lower extremity cellulitis/wound. Plan to continue antimicrobial therapy per ID recommendations. The patient does not have a current vasopressor requirement. 3. Acute kidney injury Most likely prerenal in etiology, as the patient's creatinine has improved after discontinuation of Lasix yesterday. Continue to monitor urine output. No current indication for renal replacement therapy. 4. History of diabetes mellitus/hypertension/COPD Complicates care, management, recovery and prognosis. Continue bronchodilator therapy as ordered. Encourage incentive spirometer use and mobilize patient as tolerated. This note was generated with [employer] dictation software. It may contain incorrect words, spelling, and punctuation that were not noted in checking the note before signing. Subjective Subjective The patient was seen and examined at the bedside this morning. Events from the last 24 hours have been reviewed. The patient currently has a low-grade fever but remains otherwise hemodynamically stable on 2 L/min via nasal cannula. White blood cell count was noted to be 12,000. Hemoglobin is stable at 12.7 g/dL. Platelet count is within normal limits. Creatinine was noted to be 1.25. The patient is currently documented to be overall net -1.2 L for the hospitalization. Objective Data Objective Data The patient's most recent lab work, culture data and imaging studies have all been personally reviewed. Surface echocardiogram from September 2024 demonstrated an ejection fraction of 35%. Blood culture dated November 22 was positive for Klebsiella. Wound culture dated November 22 was positive for gram-negative arie, lactose student driving instructor, possible Enterococcus and staphylococcal species. Vital Signs: Vital Signs Temp Pulse Resp BP Pulse Ox O2 Del Method O2 Flow Rate 99.3 F H 96 30 H 89/64 L 97 Nasal Cannula 2 11/24/24 06:00 11/24/24 06:00 11/24/24 06:00 11/24/24 06:00 11/24/24 06:00 11/24/24 06:00 11/24/24 06:00 FiO2 25 11/23/24 08:00 Oxygen Flow Rate (L/min) 2 Oxygen Delivery Method Nasal Cannula Weight: 209 lb 7.026 oz Body Mass Index (BMI) 29.2 Intake & Output: Intake and Output for Last 24 Hours 11/22/24 11/23/24 11/24/24 23:59 23:59 23:59 Intake Total 1225 / 1225 1738.13 / 1738.13 Output Total 3400 / 3400 500 / 500 Balance 1225 / 1225 -1661.87 / -1661.87 -500 / -500 Lab / Micro Data Attestation: I reviewed the patient's lab results. 11/24/24 04:10 11/24/24 04:10 Labs: Laboratory Results - last 24 hr 11/23/24 04:59: WBC 8.8, RBC 4.35 L, Hgb 13.3, Hct 39.3 L, MCV 90.3, MCH 30.6, M CHC 33.8 D, RDW Std Deviation 49.0 H, RDW Coeff of Maycol 14.8 H, Plt Count 309, MPV 9.8, Immature Gran % (Auto) 0.700, Neut % (Auto) 82.1 H, Lymph % (Auto) 11.7 L, [place] % (Auto) 5.3, Eos % (Auto) 0.0, Baso % (Auto) 0.2, Absolute Neuts (auto) 7.2, Absolute Lymphs (auto) 1.03, Nucleated RBC % 0, Platelet Estimate ADEQUATE, Polychromasia 1+ 11/23/24 10:21: POC Glucose 158 H 11/23/24 16:16: POC Glucose 164 H 11/23/24 21:00: POC Glucose 184 H 11/24/24 04:10: WBC 12.1 H, RBC 4.25 L, Hgb 12.7 L, Hct 38.9 L, MCV 91.5, MCH 29.9, MCHC 32.6, RDW Std Deviation 48.9 H, RDW Coeff of Maycol 14.7 H, Plt Count 298, MPV 9.7, Immature Gran % (Auto) 0.900, Neut % (Auto) 83.8 H, Lymph % (Auto) 9.2 L, [place] % (Auto) 5.8, Eos % (Auto) 0.1, Baso % (Auto) 0.2, Absolute Neuts (auto) 10.1 H, Absolute Lymphs (auto) 1.11, Nucleated RBC % 0, Differential Comment SCANNED, Sodium 134, Potassium 4.1, Chloride 100, Carbon Dioxide 20.0 L, Anion Gap 14, BUN 38 H, Creatinine 1.25 H, Estim Creat Clear Calc 70.24, Est GFR (MDRD) Non-Af 64, BUN/Creatinine Ratio 30.2 H, Glucose 138 H, Calcium 8.7, V ancomycin Trough 20.8 H Micro: Microbiology 11/22/24 17:33 Wound - Ankle Gram Stain - Final 11/22/24 17:33 Wound - Ankle Wound Culture - Preliminary GNR lactose student driving instructor GNR lactose student driving instructor#2 11/22/24 19:01 Urine, Catheterized Urine Culture - Preliminary Culture exhibits no growth. 11/22/24 10:00 Blood Culture (Wb) - Anticubital Right Blood Culture - Preliminary GNR lactose student driving instructor 11/22/24 22:44 Nasal Secretion MRSA (PCR) - Final 11/22/24 23:05 Mucosa - Nasopharyngeal Respiratory Panel (PCR) - Final 11/22/24 19:01 Urine Catheter - Mayers Legionella Antigen - Final 11/22/24 19:01 Urine Catheter - Mayers Streptococcus pneumoniae Antigen (M - Final Rhythm Strip Rhythm Strip: Sinus Tach Rate: 111 Ectopy: None Physical Exam Const alert, oriented x3 and no apparent distress Constitutional Narrative: Sitting in bedside recliner eating breakfast. General Appearance: cooperative HEENT normocephalic and head/scalp atraumatic Eyes PERRL, EOMs intact bilaterally and conjunctivae normal Neck supple General: trachea midline Chest inspection of chest normal Resp normal respiratory effort Auscultation: diminished lung sounds; Negative for rales, rhonchi or wheezes Cardio regular rate and regular rhythm GI normal to inspection, nondistended, normoactive bowel sounds Extremity Extremity Narrative: Wrapped lower extremities. Neuro CN's II-XII intact bilaterally, moves all extremities and no focal motor deficits Psych Mood & Affect: flat affect Charges/Coding Visit Charges Inpatient E&M: 68917 Subs Hosp L2
--- NOTE | 2024-11-24 08:00 | US_ITS ---
PROCEDURE: THORACENTESIS W US 11/24/2024 REASON FOR EXAM: R SIDED EFFUSION, LARGE TECHNIQUE: Diagnostic and therapeutic right THORACENTESIS W US COMPARISON: Chest x-ray 11/22/2024 FINDINGS: Procedure: Following informed consent, and using standard sterile technique, an ultrasound- guided right thoracentesis was performed via a posterior approach. 1% lidocaine local anesthesia was followed by placement of a 5 [place] catheter is placed into the right pleural fluid collection. Approximately 1150 mL of clear light jovana fluid was successfully removed, a portion set aside for laboratory evaluation. No complication was encountered, in the patient left the department in good condition without significant complaint. US/Thoracentesis W US IMPRESSION: Successful therapeutic and diagnostic right thoracentesis with ultrasound sukumar molina. Laboratory results pending. Reading Location: [place] [id number]
--- NOTE | 2024-11-24 10:10 | PN_ITS ---
Subjective Subjective Patient seen and examined. He complained of pain in his lower extremities. He had no other complaints. He is due for the thoracentesis today as he could not have it yesterday. Review of systems is otherwise negative. Objective Data Objective Data Vital Signs: Vital Signs Temp Pulse Resp BP Pulse Ox O2 Del Method O2 Flow Rate 98.8 F 99 17 101/66 98 Nasal Cannula 2 11/24/24 08:00 11/24/24 08:00 11/24/24 08:00 11/24/24 08:00 11/24/24 08:00 11/24/24 08:00 11/24/24 08:00 FiO2 25 11/23/24 08:00 Oxygen Flow Rate (L/min) 2 Oxygen Delivery Method Nasal Cannula Weight: 209 lb 7.026 oz Body Mass Index (BMI) 29.2 Intake & Output: Intake and Output for Last 24 Hours 11/22/24 11/23/24 11/24/24 23:59 23:59 23:59 Intake Total 1225 / 1225 1738.13 / 1738.13 50 / 50 Output Total 3400 / 3400 500 / 500 Balance 1225 / 1225 -1661.87 / -1661.87 -450 / -450 Lab / Micro Data 11/24/24 04:10 11/24/24 04:10 Labs: Laboratory Results - last 24 hr 11/23/24 10:21: POC Glucose 158 H 11/23/24 16:16: POC Glucose 164 H 11/23/24 21:00: POC Glucose 184 H 11/24/24 04:10: WBC 12.1 H, RBC 4.25 L, Hgb 12.7 L, Hct 38.9 L, MCV 91.5, MCH 29.9, MCHC 32.6, RDW Std Deviation 48.9 H, RDW Coeff of Maycol 14.7 H, Plt Count 298, MPV 9.7, Immature Gran % (Auto) 0.900, Neut % (Auto) 83.8 H, Lymph % (Auto) 9.2 L, [place] % (Auto) 5.8, Eos % (Auto) 0.1, Baso % (Auto) 0.2, Absolute Neuts (auto) 10.1 H, Absolute Lymphs (auto) 1.11, Nucleated RBC % 0, Differential Comment SCANNED, Sodium 134, Potassium 4.1, Chloride 100, Carbon Dioxide 20.0 L, Anion Gap 14, BUN 38 H, Creatinine 1.25 H, Estim Creat Clear Calc 70.24, Est GFR (MDRD) Non-Af 64, BUN/Creatinine Ratio 30.2 H, Glucose 138 H, Calcium 8.7, V ancomycin Trough 20.8 H 11/24/24 08:05: POC Glucose 118 H Micro: Microbiology 11/22/24 17:33 Wound - Ankle Gram Stain - Final 11/22/24 17:33 Wound - Ankle Wound Culture - Preliminary GNR lactose program coordinator GNR lactose program coordinator#2 GPC Poss Enterococcus sp Staphylococcus species 11/22/24 10:00 Blood Culture (Wb) - Anticubital Right Blood Culture - Final Klebsiella oxytoca 11/22/24 19:01 Urine, Catheterized Urine Culture - Preliminary Culture exhibits no growth. 11/22/24 22:44 Nasal Secretion MRSA (PCR) - Final 11/22/24 23:05 Mucosa - Nasopharyngeal Respiratory Panel (PCR) - Final 11/22/24 19:01 Urine Catheter - Mayers Legionella Antigen - Final 11/22/24 19:01 Urine Catheter - Mayers Streptococcus pneumoniae Antigen (M - Final Rhythm Strip Rhythm Strip: Sinus Tach Rate: 111 Ectopy: None Physical Exam Const alert and oriented x3 Constitutional Narrative: frail, weak. General Appearance: cooperative HEENT normocephalic, head/scalp atraumatic and oropharynx normal Eyes PERRL, EOMs intact bilaterally and conjunctivae normal Neck supple and no JVD Lymph Lymphatic: no lymphedema noted Resp normal respiratory effort and no retractions Resp Narrative: remains on 2L of oxygen by nasal canula. Diminished breath sounds bilaterally, no wheezes or crackles. Cardio regular rate, regular rhythm, S1 normal heart sound, S2 normal heart sound and no murmurs GI normal to inspection, nondistended, normoactive bowel sounds, soft to palpation and non-tender Extremity Extremity Narrative: has erythema of lower extremities bilaterally, from ankle to dent, with superficial ulcerations with some discharge over RLE dent. Mild differential warmth and swelling. Both LEs now wrapped in bandage. Skin Skin Narrative: as under extremities Neuro oriented x3, CN's II-XII intact bilaterally and moves all extremities Sensorium / Orientation: awake Psych thought process normal, cooperative and affect normal Psych Narrative: weak, frail Assessment & Plan Assessment/Plan (1) Severe sepsis: PLAN: Plan #Sepsis due to cellulitis of the lower extremities and pneumonia with bilateral pleural effusion. * Patient admitted with complaint of weakness and failure to thrive. He did meet sepsis criteria as he is tachycardic and tachypneic and lactic acid is also elevated at 4 which meets evidence of endorgan damage. * wbc up to 12.1 today. * ABG showed pH of 7.43 with bicarb of 15 and PCO2 of 22.6 as well as PO2 of 74. CT chest showed bilateral pleural effusion, larger on the right and evidence of right lower lobe consolidation indicated of pneumonia. * He was emergently transferred to the ICU. He required BiPAP overnight but is now on 2 L of oxygen. * Critical care consulted. Blood cultures and urine cultures pending. Remains on IV vancomycin and cefepime. For diagnostic thoracentesis today. * Titrate oxygen to maintain saturation above 90%. Breathing treatments bronchodilators. ID also consulted. * now off lasix drip. * critical care also on board * feeling better today. On 2L of oxygen by nasal canula. * blood cultures growing Klebsiella oxytoca. Continue vancomycin and cefepime * bilateral lower extremity duplex was negative for any evidence of DVT * # Acute on chronic Heart failure with reduced ejection fraction: * proBNP was markedly elevated at >21555 * Breathing treatments bronchodilators. * Now on IV Lasix drip. Monitor intake and output. Fluid restriction to 1500 cc daily. * has known EF of 30-35% * now off lasix drip. On 2L of oxygen by nasal canula * on entresto and spironolactone #BENOIT * Baseline creatinine from 11/13/2024 was 0.98. * Cr today is down to 1.25 from 1.4 yesterday. * now off lasix drip. Will monitor * #Type 2 diabetes mellitus: * on lantus 20 units daily. Insulin sliding scale. Accu-Cheks ACHS. Also on dapagliflozin. Also on Entresto As well as spironolactone. #Diabetic cellulitis of the lower extremities * had cellulitis of the lower extremities for which he had a course of oral antibiotics. * still had erythema and oozing of the lower extremities, with some differential warmth * both LEs now wrapped in bandage. * Wound care on board. * on IV vancomycin and cefepime as above. * wound cultures growing gram negative rods lactose program coordinator and Staph species. * #CAD: On aspirin and Plavix as well as high intensity statin. Also on Repatha. #Debility and weakness with failure to thrive. Patient states he passed out at home. Apparently seems like he was very weak and slid to the floor and did not hit his head. PT OT on board. Fall precautions. #Nicotine dependence: Counseled to quit. Nicotine patch 21 mg daily. CODE STATUS: Full code * Charges/Coding Visit Charges Inpatient E&M: 20587 Subs Hosp L2
[2024-11-24] MEDS: SACUBITRIL/VALSARTAN 24/26 MG TABLET 1 EACH PO (10:11)
[2024-11-24] MEDS: 0.9% Saline Lock 10 ML Syringe IV ×4 (10:12→14:42)
[2024-11-24] MEDS: Insulin Glargine-YFGN 100 UNIT/ML Pen 20 UNIT SC (10:12)
--- NOTE | 2024-11-24 10:25 | PCM.PN.ID ---
Physical Exam Narrative Feeling better, no fever, leg still sore, no n/v/d. Some dyspnea. Const alert and no apparent distress General Appearance: cooperative Resp clear to auscultation bilaterally Auscultation: diminished lung sounds Cardio Rate: tachycardic Extremity General Extremity: edema Skin Skin Narrative: BLE wrapped, L ankle with drainage ID ID: Route of nutrition/ use of supplements: [] Nutritional Intake: [] IV Site: [] Mayers Catheter: [] Assessment & Plan Assessment/Plan (1) Severe sepsis: PLAN: klebs bacteremia, suspect source L ankle wound vs pneumonia. Cont vanc/cefepime. L ankle wound cx with GNR x2, enterococcus-like, and staph. Will follow (2) Bacteremia due to Gram-negative bacteria:
--- NOTE | 2024-11-24 12:27 | CASEMGMT ---
Discharge Planning A list of?SNF providers including quality and resource use data and consistent with the patient's preferred geographic region, medical needs, and insurance network was created in [employer] Guide.? This list was provided to the RN MIGUEL. Tiffany Perdomo, Discharge Planning Asst.
--- NOTE | 2024-11-24 12:55 | CASEMGMT ---
Addendum entered by Daisha Crabtree 11/24/24 16:59: At 12:55 PM, when RN MIGUEL in room talking w/pt, he was provided w/Info on Community Action and Utility assistance. Addendum entered by Daisha Crabtree 11/24/24 16:26: Pt's niece, Yudelka, in pt's room to visit & requested to talk w/CM. RN MIGUEL to room. She states she has spoken w/Christine and they both agree for pt to discharge to a SNF. She states they will be talking w/pt's son when he gets off of work today and discuss this w/him as well. SNF list that was prepared by trung lAlen executive assistant to general counsel, given to Yudelka and also emailed to Christine @ [email or web address]. Further questions answered re: SNF's and insurance and referral process. Yudelka was made aware family to provide top 3 SNF preferences. She voices understanding. Addendum entered by Daisha Crabtree 11/24/24 15:12: 12:55 PM: Call received back from Yudelka. She was made aware of how pt did w/therapy today and that pt states he would be agreeable to going to a SNF if family felt it was a good idea. She states she is currently @ work, but states she will contact pt's daughter, Christine, stating, Everything has to go through her and will ask Christine to call this RN MIGUEL back. 2PM: Call received from Christine. She was made aware of the above. She states she would say yes to pt going to a SNF, but she wants to talk w/the other family members, including her brother and nephew, and will call this RN CM back. She was made aware, if family is all agreeable to pt going to a SNF, that a list of SNF's in the area that are in network w/pt's insurance and w/MCR star-ratings could be e-mailed, if desired, or reviewed over the phone. She voices understanding. Original Note: RN CM NOTE: PT/OT have worked w/pt today. Pt requiring max A of 2 sit to stand and mod A of 2 stand pivot to BSC, additional therapy recommended. RN CM to room. Pt sitting up in chair. Introduced self and role. Discussed therapy an recommendations. Pt states he realizes he is weak and needing assistance. He lives w/his son and GS, but his son works during the day. Discussed option of SNF. Pt asked VICKI RIVERA to call his niece, Yudelka, to discuss this w/her. He states Yudelka would communicate w/the rest of the family about the plans and that if they felt that going to SNF would be beneficial, that he would be agreeable. He also states to let family decide on preference of SNF. VICKI RIVERA placed call to Yudelka. No answer. VM left requesting return call. Mohsen MOSQUEDAN VICKI RIVERA
[2024-11-24 13:00] LABS: Vancomycin, Random Level 16.0 ug/mL (0.0-15.0)
--- NOTE | 2024-11-24 13:35 | PCM.RX.CS ---
Consult Antibiotic Management Pharmacy has been consulted to manage selected antibiotic: Vancomycin Type of Intervention Type of Consult: Follow-up Suspected Infection Suspected Infection: Skin/Soft tissue Prior Doses of Antibiotics Prior Doses of Antibiotics Received/Current Regimen: X1 2000 mg LD X2 1500 mg MD Labs Labs: Sodium 134 mmol/L (133-145) 11/24/24 04:10 Potassium 4.1 mmol/L (3.3-5.1) 11/24/24 04:10 Chloride 100 mmol/L (98-108) 11/24/24 04:10 Carbon Dioxide 20.0 mmol/L (21.0-32.0) L 11/24/24 04:10 Anion Gap 14 (5-15) 11/24/24 04:10 BUN 38 mg/dL (4-19) H 11/24/24 04:10 Creatinine 1.25 mg/dL (0.70-1.20) H 11/24/24 04:10 Est GFR (MDRD) Non-Af 64 (>60) 11/24/24 04:10 BUN/Creatinine Ratio 30.2 RATIO (10-20) H 11/24/24 04:10 Glucose 138 mg/dL (70-99) H 11/24/24 04:10 Vancomycin Trough 20.8 ug/mL (5.0-15.0) H 11/24/24 04:10 Random Vancomycin 16.0 ug/mL (0.0-15.0) H 11/24/24 11:35 Microbiology Microbiology: Microbiology 11/22/24 10:00 Blood Culture (Wb) - Anticubital Left Blood Culture - Preliminary No growth in 48 hours. 11/22/24 17:33 Wound - Ankle Gram Stain - Final 11/22/24 17:33 Wound - Ankle Wound Culture - Preliminary GNR lactose magnetic grinder operator GNR lactose magnetic grinder operator#2 GPC Poss Enterococcus sp Staphylococcus species 11/22/24 10:00 Blood Culture (Wb) - Anticubital Right Blood Culture - Final Klebsiella oxytoca 11/22/24 19:01 Urine, Catheterized Urine Culture - Preliminary Culture exhibits no growth. 11/22/24 22:44 Nasal Secretion MRSA (PCR) - Final 11/22/24 23:05 Mucosa - Nasopharyngeal Respiratory Panel (PCR) - Final 11/22/24 19:01 Urine Catheter - Mayers Legionella Antigen - Final 11/22/24 19:01 Urine Catheter - Mayers Streptococcus pneumoniae Antigen (M - Final Dosing Weight Weight used for dosin kg Estimated Creatinine Clearance Estimated Creatinine Clearance: 70 Goal Trough Goal Trough: 15-20 mcg/mL Pharmacy Plan for Drug Dosing Pharmacy Plan for Drug Dosing: Pharmacy Service will continue to monitor and adjust dosing as required. VANCOMYCIN LEVEL RECEIVED Current Vancomycin Dose: 1250 mg Q12H Number of Doses Received: 3 (x1 LD + x2 MD) Vancomycin Level: 16 Hours Since Last Dose: 19 hours Renal Function: - SCr: 1.25 - CrCl: 70.2 WBC: 12.1 Renal Function Trend: Stable Lab/Micro: Ankle culture + for Staph aureus, final report pending Vancomycin Plan/Comments: CHANGING TO 1250 MG Q12H with first dose 11/24 @ 1400 Pending Level: 11/26/24 @ 0130 Date/Time Labs Ordered Labs to be done on [date and time ordered]: 11/26/24 @ 0130
[2024-11-24] MEDS: Lidocaine 2% (20 ml mdv) 20 ML Vial INFILT (14:15)
--- NOTE | 2024-11-24 14:15 | FLU_PTH ---
PATIENT: KANA MEJIA Sr. LOC: [facility] U#:[id number] AGE/SX: 64/M ROOM: [facility] RE11/22/[address]: Dr. Flori Johnson MD : 1960 BED: 1 DIS: 12/08/2024 SPEC #: [id number] RECD: 11/24/24 14:36 STATUS: [place] REQ #: [id number] ANDREY: 11/24/24 14:[address]: Flori Johnson DEPT: CYTOLOGY RECD BY: Terrence Singh ENTERED: 11/25/24 09:06 SP TYPE: Fluid OTHR DR: MD Dr. Keshav Chan MD Dr. Bruce Arthur, MD Dr. Douglas R Brown, DO Dr. Derek Brown, DO Dr. David P Myers, MD Dr. Edward Matheis, MD Dr. Gautam Baskaran, MD Dr. Yordanos Habtegebriel, MD Dr. Hemant Dand, MD Dr. Jose Ochoa, MD Dr. Justin Wong, MD Dr. Kimber Foust, MD Dr. Lamia Aljundi, MD Dr. Marisa Magana, MD Dr. Pritam Ghosh, MD Dr. Pavan Irukulla, MD Dr. Robert Leininger, MD Dr. Saad Farooqi, MD Dr. Sukhdeep Dhesi, MD Dr. Barbi Valdivia Dr., MD Dr. Timothy Fernstrom, MD Dr. Osito Lugo Dr., MD Tissues: A - Pleural fluid, NOS Procedures: Special Stain Group II Surgery Specimen Level IV Cytospin Fluid HEADER OPERATION: Thoracentesis PRE-OP DIAGNOSIS: Pleural effusion TISSUE SUBMITTED: A- Thoracentesis fluid for cytology DIAGNOSIS CYTOLOGY A. Pleural effusion, thoracentesis (cytospin, cellblock): - No malignant cells identified. - Reactive mesothelial cells, mild acute inflammation and blood. CYTOLOGY STUDY Slides are reviewed. CYTOLOGY GROSS A. Received is 90 ml of red-cloudy fluid labeled with the patient's name and and designated per the requisition as Thoracentesis fluid. Submitted for cytology and cell block preparation. Mr 11/25/2024 CPT: 99375,63094
[2024-11-24 14:39] LABS: Cytology, Body Fluid / CSF SEE PATHOLOGY REPORT
[2024-11-24] MEDS: Vancomycin HCl 1,250 MG in 0.9% Normal Saline (250mL Bag) 250 ML 167 MG IV (14:42)
[2024-11-24 14:56] LABS: Body Fluid Mononuclear WBC # 0.159 10^3/uL; Body Fluid Mononuclear WBC % 44.4 %; Body Fluid Polynuclear WBC # 0.199 10^3/uL; Body Fluid Polynuclear WBC % 55.6 %; Red Cell Count/Body Fluid 0.005 10^6/ul; White Blood Count/Body Fluid 0.358 10^3/uL
[2024-11-24 15:23] LABS: Glucose, Body Fluid 172 mg/dL (Not Establ.)
[2024-11-24 15:30] LABS: Appearance/Body Fluid CLOUDY; Auto B Fluid Analyzer BKGD Ct COUNTS W/IN LIMITS (W/IN LIMITS); Color/Body Fluid YELLOW; Neutrophil (Segs) 45 %; Source- Body Fluid THORACENTESIS
[2024-11-24 15:31] LABS: Body Fluid QC Type(s) BF1
[2024-11-24 15:59] LABS: Pathologist Comment/Body Fluid Reviewed
--- NOTE | 2024-11-24 16:50 | RAD_ITS ---
PROCEDURE: CHEST 1 VIEW (PORTABLE) 11/24/2024 REASON FOR EXAM: POST THORACENTESIS, RT SIDED CP TECHNIQUE: Frontal view of the chest. COMPARISON: 11/22/2024. FINDINGS: Prior sternotomy. The heart is enlarged. Vascular indistinctness lung bases favoring edema. Bibasilar linear opacities favoring atelectasis. Intervally decreased right pleural effusion. RAD/Chest 1 View (Portable) IMPRESSION: Intervally decreased right pleural effusion. Mild vascular indistinctness which may represent edema. Bibasilar opacities favoring infiltrate when compared to the prior CT. Reading Location: [id number]
--- NOTE | 2024-11-24 21:10 | PCM.HOSP.N ---
Hospitalist Note Patient s/p thoracentesis today with removal 1150 cc. Following per discussion with staff BP lower, now MAP continues < 65, will initiate on NEP.
[2024-11-24] MEDS: Norepinephrine 8 MG in 0.9% Normal Saline (250mL Bag) 242 ML 9.4 MG CONT INF (21:32)
[2024-11-25] VITALS (41 sets, daily range): BP systolic 81–120; BP diastolic 54–92; PULSE 87–106; RESP 11–26; TEMP 37.3–37.5; O2SAT 92–100; BMI 28.7
[2024-11-25] MEDS: Vancomycin HCl 1,250 MG in 0.9% Normal Saline (250mL Bag) 250 ML 167 MG IV ×2 (01:09→12:55)
[2024-11-25 04:13] LABS: Hematocrit 39.8 % (40-54); Hemoglobin 13.4 g/dL (13.0-16.5); Immature Granulocytes Count 0.080 X10^3/uL (0.0-0.0); Mean Corp Hgb Conc 33.7 g/dL (32-36); Mean Corpuscular Volume 88.8 fL (80-94); Mean Platelet Vol. 9.6 fl (6.2-12.0); NRBC Flagged by Analyzer 0 % (0-5); Platelet Count 403 K/mm3 (150-450); RBC Distribution Width CV 14.6 % (11.6-14.6); RBC Distribution Width SD 46.3 fl (35.1-43.9); Red Blood Count 4.48 M/mm3 (4.6-6.2); White Blood Count 16.4 K/mm3 (4.4-11.0)
[2024-11-25 04:55] LABS: Anion Gap 16 (5-15); BUN 47 mg/dL (4-19); BUN/Creat Ratio 40.9 RATIO (10-20); Calcium,Total 8.7 mg/dL (7.6-11.0); Carbon Dioxide 17.8 mmol/L (21.0-32.0); Chloride 98 mmol/L (98-108); Estimated Creatinine Clearance 77.02 ml/min (50-250); Glucose 193 mg/dL (70-99); Potassium 4.0 mmol/L (3.3-5.1)
[2024-11-25] MEDS: Cefepime HCl 1 GM in 0.9% Normal Saline (50mL MB+) 50 ML IV ×3 (05:51→21:22)
--- NOTE | 2024-11-25 07:04 | PCM.PN.INT ---
Assessment & Plan Assessment/Plan (1) Bacteremia due to Gram-negative bacteria: (2) Severe sepsis: PLAN: Plan RECOMMENDATIONS: 1. Wean supplemental oxygen to maintain saturations at or above 90%. 2. Discontinue Entresto, spironolactone and IV morphine. 3. Continue to wean Levophed as tolerated. Start scheduled midodrine 3 times daily. 4. Continue antimicrobials per ID recommendations. 5. Encourage incentive spirometer use and mobilize patient as tolerated. IMPRESSIONS: 1. Acute hypoxemic respiratory failure Clinical concern for underlying pneumonia versus exacerbation of heart failure with reduced ejection fraction. The patient has been maintained on antimicrobials. In addition, he was started on a continuous Lasix infusion, which was ultimately discontinued due to hemodynamic instability. However, the patient's respiratory status has improved. Continue to wean supplemental oxygen to maintain saturations at or above 90%. Continue empiric antimicrobials per ID recommendations. 2. Sepsis Likely related to underlying pneumonia versus lower extremity cellulitis/wound. Plan to continue antimicrobial therapy per ID recommendations. The patient was started on low-dose Levophed overnight due to borderline hemodynamics. Therefore, we will plan to hold Entresto and spironolactone and discontinue IV morphine. 3. History of diabetes mellitus/hypertension/COPD Complicates care, management, recovery and prognosis. Continue bronchodilator therapy as ordered. Encourage incentive spirometer use and mobilize patient as tolerated. This note was generated with [employer] dictation software. It may contain incorrect words, spelling, and punctuation that were not noted in checking the note before signing. Subjective Subjective The patient was seen and examined at the bedside this morning. Events from the last 24 hours have been reviewed. The patient was apparently started on low-dose Levophed last night due to borderline hemodynamics. He is currently documented to be overall net -2.1 L for the hospitalization. White blood cell count this morning was noted to be 16,000. Creatinine is stable at 1.14. The patient remains on empiric antimicrobials. Objective Data Objective Data The patient's most recent lab work, culture data and imaging studies have all been personally reviewed. Surface echocardiogram from September 2024 demonstrated an ejection fraction of 35%. Blood culture dated November 22 was positive for Klebsiella. Wound culture dated November 22 was positive for gram-negative arie, lactose window caser, possible Enterococcus and staphylococcal species. Vital Signs: Vital Signs Temp Pulse Resp BP Pulse Ox O2 Del Method O2 Flow Rate 99.3 F H 92 18 99/64 98 Nasal Cannula 2 11/25/24 06:00 11/25/24 06:00 11/25/24 06:00 11/25/24 06:00 11/25/24 06:00 11/25/24 06:00 11/25/24 06:00 FiO2 25 11/23/24 08:00 Oxygen Flow Rate (L/min) 2 Oxygen Delivery Method Nasal Cannula Weight: 205 lb 0.478 oz Body Mass Index (BMI) 28.7 Intake & Output: Intake and Output for Last 24 Hours 11/23/24 11/24/24 11/25/24 23:59 23:59 23:59 Intake Total 1738.13 / 1738.13 438.78 / 448.18 564.70 / 564.70 Output Total 3400 / 3400 2350 / 2350 350 / 350 Balance -1661.87 / -1661.87 -1911.22 / -1901.82 214.70 / 214.70 Lab / Micro Data Attestation: I reviewed the patient's lab results. 11/25/24 04:00 11/25/24 04:00 Labs: Laboratory Results - last 24 hr 11/24/24 08:05: POC Glucose 118 H 11/24/24 11:21: POC Glucose 182 H 11/24/24 11:35: Random Vancomycin 16.0 H 11/24/24 14:15: Fluid Source THORACENTESIS, Fluid Color YELLOW, Fluid Appearance CLOUDY, Fluid WBC 0.358, Fluid RBC 0.005, Fluid Tot Cell Count 0.539, Fld Polynuclear WBCs # 0.199, Fld Polynuclear WBCs % 55.6, Fluid Mononuclear WBCs 0.159, Fld Mononuclear WBCs % 44.4, Fluid Neutrophils 45, Fluid Lymphocytes 18, Fluid Monocytes 11, Fluid Macrophages 22, Fld Mesothelial Cells 4, Fl Pathologist Comment Reviewed, Fluid Glucose 172, Fluid Total Protein 2.3, Fluid LDH 78, Fluid Comment 2 SEE COMMENT 11/24/24 16:32: POC Glucose 179 H 11/24/24 21:16: POC Glucose 238 H 11/25/24 04:00: WBC 16.4 H, RBC 4.48 L, Hgb 13.4, Hct 39.8 L, MCV 88.8, MCH 29.9, MCHC 33.7, RDW Std Deviation 46.3 H, RDW Coeff of Maycol 14.6, Plt Count 403, MPV 9.6, Immature Gran % (Auto) 0.500, Neut % (Auto) 83.8 H, Lymph % (Auto) 9.2 L, Major % (Auto) 5.4, Eos % (Auto) 0.8, Baso % (Auto) 0.3, Absolute Neuts (auto) 13.8 H, Absolute Lymphs (auto) 1.51, Nucleated RBC % 0, Sodium 131 L, Potassium 4.0, Chloride 98, Carbon Dioxide 17.8 L, Anion Gap 16 H, BUN 47 H, Creatinine 1.14, Estim Creat Clear Calc 77.02, Est GFR (MDRD) Non-Af 72, BUN/Creatinine Ratio 40.9 H, Glucose 193 H, Calcium 8.7 Micro: Microbiology 11/22/24 14:54 Blood Culture (Wb) - Right Hand Blood Culture - Preliminary No growth in 48 hours. 11/22/24 14:48 Blood Culture (Wb) - Left Hand Blood Culture - Preliminary No growth in 48 hours. 11/22/24 10:00 Blood Culture (Wb) - Anticubital Left Blood Culture - Preliminary No growth in 48 hours. 11/22/24 17:33 Wound - Ankle Gram Stain - Final 11/22/24 17:33 Wound - Ankle Wound Culture - Preliminary GNR lactose window caser GNR lactose window caser#2 GPC Poss Enterococcus sp Staphylococcus species 11/22/24 10:00 Blood Culture (Wb) - Anticubital Right Blood Culture - Final Klebsiella oxytoca 11/22/24 19:01 Urine, Catheterized Urine Culture - Preliminary Culture exhibits no growth. 11/22/24 22:44 Nasal Secretion MRSA (PCR) - Final 11/22/24 23:05 Mucosa - Nasopharyngeal Respiratory Panel (PCR) - Final 11/22/24 19:01 Urine Catheter - Mayers Legionella Antigen - Final 11/22/24 19:01 Urine Catheter - Mayers Streptococcus pneumoniae Antigen (M - Final Radiography Diagnostic Testing: Radiology Impression Thoracentesis Ultrasound 11/24/24 08:00 IMPRESSION: Successful therapeutic and diagnostic right thoracentesis with ultrasound guidance. Laboratory results pending. Reading Location: [facility] Chest X-Ray 11/24/24 16:50 IMPRESSION: Intervally decreased right pleural effusion. Mild vascular indistinctness which may represent edema. Bibasilar opacities favoring infiltrate when compared to the prior CT. Reading Location: [facility] Rhythm Strip Rhythm Strip: Sinus Tach Rate: 111 Ectopy: None Physical Exam Const alert, oriented x3 and no apparent distress General Appearance: cooperative HEENT normocephalic and head/scalp atraumatic Eyes PERRL, EOMs intact bilaterally and conjunctivae normal Neck supple General: trachea midline Chest inspection of chest normal Resp normal respiratory effort Auscultation: diminished lung sounds; Negative for rales, rhonchi or wheezes Cardio regular rate and regular rhythm GI normal to inspection, nondistended, normoactive bowel sounds Extremity Extremity Narrative: Wrapped lower extremities. Neuro CN's II-XII intact bilaterally, moves all extremities and no focal motor deficits Psych Mood & Affect: flat affect Charges/Coding Visit Charges Inpatient E&M: 85636 Subs Hosp L3
[2024-11-25] MEDS: Insulin Glargine-YFGN 100 UNIT/ML Pen 20 UNIT SC (08:06)
--- NOTE | 2024-11-25 08:49 | WOUNDNOTE ---
Since pain has been less to the LLE, will try Aquacel Extra dressings to assist in absorbing the drainage. orders changed at this time.
--- NOTE | 2024-11-25 10:09 | PCM.PN.ID ---
Physical Exam Narrative Feeling better, breathing improved, no fever, leg less sore Const alert and no apparent distress General Appearance: cooperative Resp normal air movement and clear to auscultation bilaterally Cardio regular rate and regular rhythm GI soft to palpation, non-tender and non-distended Skin no rashes or lesions noted ID ID: Route of nutrition/ use of supplements: [] Nutritional Intake: [] IV Site: [] Mayers Catheter: [] Assessment & Plan Assessment/Plan (1) Severe sepsis: PLAN: klebs bacteremia, suspect source L ankle wound vs pneumonia. Cont vanc/cefepime. L ankle wound cx with GNR x2, enterococcus-like, and staph. Will follow (2) Bacteremia due to Gram-negative bacteria:
--- NOTE | 2024-11-25 10:23 | CASEMGMT ---
Addendum entered by Maribel Simmons 11/25/24 12:13: Pt's niece returns call and states that they were able to review the list and that they prefer 1.) [facility] and 2.) [facility]. [facility] DC Stars Coordinator notified and plans to initiate the referral process. CM to follow. Original Note: See previous RN CM note. This RN CM to the pt room to discuss DC planning. Pt states that he is still agreeable to SNF placement @ the time of DC. Pt still prefers his family to select the facility. TC to pt's daughter at this time, no answer. VM left. TC to pt's niece at this time, no answer. VM left. CM to continue to follow. Dr Johnson reports that the pt will require to be here ([facility]) through the weekend medically. CM to follow.
[2024-11-25] MEDS: Norepinephrine 8 MG in 0.9% Normal Saline (250mL Bag) 242 ML 9.4 MG CONT INF (12:54)
--- NOTE | 2024-11-25 12:59 | PN_ITS ---
Subjective Subjective Patient seen and examined. He complained of anxiety. He had thoracentesis done yesterday with removal of 1.1L of fluid. He complained of some right sided chest pain. Review of systems is otherwise negative.He had a fever this morning with temp of 99.4F, and HR was 103. BP was also running low at 94.59. He actually had to be started on levophed overnight, and still remains on a low dose of levophed. Objective Data Objective Data Vital Signs: Vital Signs Temp Pulse Resp BP Pulse Ox O2 Del Method O2 Flow Rate 99.4 F H 103 H 23 H 94/59 L 96 Room Air 2 11/25/24 11:00 11/25/24 12:00 11/25/24 12:00 11/25/24 12:00 11/25/24 12:05 11/25/24 12:00 11/25/24 08:00 FiO2 25 11/23/24 08:00 Oxygen Flow Rate (L/min) 2 Oxygen Delivery Method Room Air Weight: 205 lb 0.478 oz Body Mass Index (BMI) 28.7 Intake & Output: Intake and Output for Last 24 Hours 11/23/24 11/24/24 11/25/24 23:59 23:59 23:59 Intake Total 1738.13 / 1738.13 438.78 / 448.18 647.89 / 647.89 Output Total 3400 / 3400 2350 / 2350 350 / 350 Balance -1661.87 / -1661.87 -1911.22 / -1901.82 297.89 / 297.89 Lab / Micro Data 11/25/24 04:00 11/25/24 04:00 Labs: Laboratory Results - last 24 hr 11/24/24 11:35: Random Vancomycin 16.0 H 11/24/24 14:15: Fluid Source THORACENTESIS, Fluid Color YELLOW, Fluid Appearance CLOUDY, Fluid WBC 0.358, Fluid RBC 0.005, Fluid Tot Cell Count 0.539, Fld Polynuclear WBCs # 0.199, Fld Polynuclear WBCs % 55.6, Fluid Mononuclear WBCs 0.159, Fld Mononuclear WBCs % 44.4, Fluid Neutrophils 45, Fluid Lymphocytes 18, Fluid Monocytes 11, Fluid Macrophages 22, Fld Mesothelial Cells 4, Fl Pathologist Comment Reviewed, Fluid Glucose 172, Fluid Total Protein 2.3, Fluid LDH 78, Fluid Comment 2 SEE COMMENT 11/24/24 16:32: POC Glucose 179 H 11/24/24 21:16: POC Glucose 238 H 11/25/24 04:00: WBC 16.4 H, RBC 4.48 L, Hgb 13.4, Hct 39.8 L, MCV 88.8, MCH 29.9, MCHC 33.7, RDW Std Deviation 46.3 H, RDW Coeff of Maycol 14.6, Plt Count 403, MPV 9.6, Immature Gran % (Auto) 0.500, Neut % (Auto) 83.8 H, Lymph % (Auto) 9.2 L, Ware % (Auto) 5.4, Eos % (Auto) 0.8, Baso % (Auto) 0.3, Absolute Neuts (auto) 13.8 H, Absolute Lymphs (auto) 1.51, Nucleated RBC % 0, Sodium 131 L, Potassium 4.0, Chloride 98, Carbon Dioxide 17.8 L, Anion Gap 16 H, BUN 47 H, Creatinine 1.14, Estim Creat Clear Calc 77.02, Est GFR (MDRD) Non-Af 72, BUN/Creatinine Ratio 40.9 H, Glucose 193 H, Calcium 8.7 11/25/24 05:49: POC Glucose 182 H 11/25/24 07:02: POC Glucose 189 H 11/25/24 10:55: POC Glucose 183 H Micro: Microbiology 11/22/24 19:01 Urine, Catheterized Urine Culture - Final Culture exhibits no growth. 11/22/24 17:33 Wound - Ankle Gram Stain - Final 11/22/24 17:33 Wound - Ankle Wound Culture - Preliminary Enterobacter cloacae complex Klebsiella oxytoca Enterococcus faecalis Staphylococcus aureus GNR lactose radiation / chemistry technician 11/22/24 14:54 Blood Culture (Wb) - Right Hand Blood Culture - Preliminary No growth in 48 hours. 11/22/24 14:48 Blood Culture (Wb) - Left Hand Blood Culture - Preliminary No growth in 48 hours. 11/22/24 10:00 Blood Culture (Wb) - Anticubital Left Blood Culture - Preliminary No growth in 48 hours. 11/22/24 10:00 Blood Culture (Wb) - Anticubital Right Blood Culture - Final Klebsiella oxytoca 11/22/24 22:44 Nasal Secretion MRSA (PCR) - Final 11/22/24 23:05 Mucosa - Nasopharyngeal Respiratory Panel (PCR) - Final 11/22/24 19:01 Urine Catheter - Mayers Legionella Antigen - Final 11/22/24 19:01 Urine Catheter - Mayers Streptococcus pneumoniae Antigen (M - Final Radiography Diagnostic Testing: Radiology Impression Thoracentesis Ultrasound 11/24/24 08:00 IMPRESSION: Successful therapeutic and diagnostic right thoracentesis with ultrasound guidance. Laboratory results pending. Reading Location: [facility] Chest X-Ray 11/24/24 16:50 IMPRESSION: Intervally decreased right pleural effusion. Mild vascular indistinctness which may represent edema. Bibasilar opacities favoring infiltrate when compared to the prior CT. Reading Location: [facility] Rhythm Strip Rhythm Strip: Sinus Tach Rate: 111 Ectopy: None Physical Exam Const alert and oriented x3 Constitutional Narrative: frail, weak. Anxious General Appearance: cooperative HEENT normocephalic, head/scalp atraumatic and oropharynx normal Eyes PERRL, EOMs intact bilaterally and conjunctivae normal Neck supple and no JVD Lymph Lymphatic: no lymphedema noted Resp normal respiratory effort Resp Narrative: on room air. tachypneic. has mildly diminished breath sounds bilaterally, no wheezes or crackles. Cardio regular rhythm, S1 normal heart sound, S2 normal heart sound and no murmurs Cardio Narrative: mild tachycardia GI normal to inspection, nondistended, normoactive bowel sounds, soft to palpation and non-tender Extremity Extremity Narrative: has erythema of lower extremities bilaterally, from ankle to dent, with superficial ulcerations with some discharge over RLE dent. Mild differential warmth and swelling. Both LEs now wrapped in bandage. Skin Skin Narrative: as under extremities. Intact dressing over right thoracentesis site. Neuro oriented x3, CN's II-XII intact bilaterally and moves all extremities Sensorium / Orientation: awake Psych thought process normal, cooperative and affect normal Psych Narrative: weak, frail Mood & Affect: flat affect Assessment & Plan Assessment/Plan (1) Severe sepsis: PLAN: Plan #Septic shock due to cellulitis of the lower extremities and pneumonia with bilateral pleural effusion. * Patient admitted with complaint of weakness and failure to thrive. He did meet sepsis criteria as he is tachycardic and tachypneic and lactic acid is also elevated at 4 which meets evidence of endorgan damage. * wbc is 16.4 today. * ABG showed pH of 7.43 with bicarb of 15 and PCO2 of 22.6 as well as PO2 of 74. CT chest showed bilateral pleural effusion, larger on the right and evidence of right lower lobe consolidation indicated of pneumonia. * Critical care on board. Blood cultures and urine cultures pending. Remains on IV vancomycin and cefepime. * had diagnostic thoracentesis done on with removal of 1.15L of of fluid. Fluid cultures and labs pending. * Titrate oxygen to maintain saturation above 90%. Breathing treatments bronchodilators. ID on baord * now off lasix drip. * critical care also on board * on room air now. * blood cultures growing Klebsiella oxytoca. Continue vancomycin and cefepime * bilateral lower extremity duplex was negative for any evidence of DVT * was started on levophed overnight. Titrate levophed to maintain MAP>65 * chest xray after thoracentesis showed bibasilar linear opacities favoring atelectasis and intervally decreased right pleural effusion * started on midodrine. * # Acute on chronic Heart failure with reduced ejection fraction: * proBNP was markedly elevated at >31722 * Breathing treatments bronchodilators. * Monitor intake and output. Fluid restriction to 1500 cc daily. * has known EF of 30-35% * now off lasix drip. On 2L of oxygen by nasal canula * on entresto and spironolactone.Hold these due to septic shock #BENOIT * Baseline creatinine from 11/13/2024 was 0.98. * Cr today is down to 1.14. * * #Type 2 diabetes mellitus: * on lantus 20 units daily. Insulin sliding scale. Accu-Cheks ACHS. Also on dapagliflozin. Also on Entresto As well as spironolactone. #Diabetic cellulitis of the lower extremities * had cellulitis of the lower extremities for which he had a course of oral antibiotics. * still had erythema and oozing of the lower extremities, with some differential warmth * both LEs now wrapped in bandage. * Wound care on board. * on IV vancomycin and cefepime as above. * wound cultures growing gram negative rods lactose radiation / chemistry technician and Staph species. * #CAD: On aspirin and Plavix as well as high intensity statin. Also on Repatha. #Debility and weakness with failure to thrive. Patient states he passed out at home. Apparently seems like he was very weak and slid to the floor and did not hit his head. PT OT on board. Fall precautions. #Nicotine dependence: Counseled to quit. Nicotine patch 21 mg daily. CODE STATUS: Full code * Charges/Coding Visit Charges Inpatient E&M: 92358 Subs Hosp L3
--- NOTE | 2024-11-25 12:59 | CASEMGMT ---
Addendum entered by Tiffany Perdomo 11/25/24 13:31: [facility] has accepted. Pt will need precert. Tiffany Perdomo DC Planning Asst. Original Note: Discharge Planning Referral sent to Gregor at [facility]. Tiffany Perdomo DC Planning Asst.
[2024-11-26] VITALS (28 sets, daily range): BP systolic 82–122; BP diastolic 47–82; PULSE 89–104; RESP 15–25; TEMP 37–37.6; O2SAT 93–100
[2024-11-26] MEDS: 0.9% Saline Lock 10 ML Syringe IV (01:57)
[2024-11-26 02:13] LABS: Hematocrit 42.5 % (40-54); Hemoglobin 13.9 g/dL (13.0-16.5); Immature Granulocytes Count 0.050 X10^3/uL (0.0-0.0); Mean Corp Hgb Conc 32.7 g/dL (32-36); Mean Corpuscular Volume 90.4 fL (80-94); Mean Platelet Vol. 9.6 fl (6.2-12.0); NRBC Flagged by Analyzer 0 % (0-5); Platelet Count 296 K/mm3 (150-450); RBC Distribution Width CV 14.6 % (11.6-14.6); RBC Distribution Width SD 48.3 fl (35.1-43.9); Red Blood Count 4.70 M/mm3 (4.6-6.2); White Blood Count 9.7 K/mm3 (4.4-11.0)
[2024-11-26 02:37] LABS: Vancomycin, Trough Level 23.1 ug/mL (5.0-15.0)
--- NOTE | 2024-11-26 02:43 | PHA.PHARE_ITS ---
Consult Antibiotic Management Pharmacy has been consulted to manage selected antibiotic: Vancomycin Type of Intervention Type of Consult: Follow-up Labs Labs: Vancomycin Trough 23.1 ug/mL (5.0-15.0) H 11/26/24 01:50 Random Vancomycin 16.0 ug/mL (0.0-15.0) H 11/24/24 11:35 Microbiology Microbiology: Microbiology 11/24/24 14:15 Fluid - Thoracentesis Fluid Gram Stain - Final 11/22/24 19:01 Urine, Catheterized Urine Culture - Final Culture exhibits no growth. 11/22/24 17:33 Wound - Ankle Gram Stain - Final 11/22/24 17:33 Wound - Ankle Wound Culture - Preliminary Enterobacter cloacae complex Klebsiella oxytoca Enterococcus faecalis Staphylococcus aureus GNR lactose audio visual director 11/22/24 14:54 Blood Culture (Wb) - Right Hand Blood Culture - Preliminary No growth in 48 hours. 11/22/24 14:48 Blood Culture (Wb) - Left Hand Blood Culture - Preliminary No growth in 48 hours. 11/22/24 10:00 Blood Culture (Wb) - Anticubital Left Blood Culture - Preliminary No growth in 48 hours. 11/22/24 10:00 Blood Culture (Wb) - Anticubital Right Blood Culture - Final Klebsiella oxytoca 11/22/24 22:44 Nasal Secretion MRSA (PCR) - Final 11/22/24 23:05 Mucosa - Nasopharyngeal Respiratory Panel (PCR) - Final 11/22/24 19:01 Urine Catheter - Mayers Legionella Antigen - Final 11/22/24 19:01 Urine Catheter - Mayers Streptococcus pneumoniae Antigen (M - Final Goal Trough Goal Trough: 15-20 mcg/mL Pharmacy Plan for Drug Dosing Pharmacy Plan for Drug Dosing: Pharmacy Service will continue to monitor and adjust dosing as required. TROUGH 23.1 @ 13 HOURS. HOLD DOSE AND DRAW RANDOM LEVEL IN 8 HOURS Follow-Up Labs Follow-Up Labs: Trough: Vancomycin Date/Time Labs Ordered Labs to be done on [date and time ordered]: 11/26 @ 6236
[2024-11-26 03:27] LABS: Anion Gap 16 (5-15); BUN 46 mg/dL (4-19); BUN/Creat Ratio 37.1 RATIO (10-20); Calcium,Total 8.8 mg/dL (7.6-11.0); Carbon Dioxide 18.3 mmol/L (21.0-32.0); Chloride 99 mmol/L (98-108); Estimated Creatinine Clearance 70.13 ml/min (50-250); Glucose 147 mg/dL (70-99); Potassium 4.2 mmol/L (3.3-5.1)
[2024-11-26] MEDS: Cefepime HCl 1 GM in 0.9% Normal Saline (50mL MB+) 50 ML IV ×3 (05:22→20:53)
[2024-11-26] MEDS: Insulin Glargine-YFGN 100 UNIT/ML Pen 20 UNIT SC (08:06)
[2024-11-26] MEDS: Vancomycin Trough/Random Due 1 LAB MC (09:30)
--- NOTE | 2024-11-26 10:09 | PN.CC_ITS ---
Objective Data Objective Data Vital Signs: Vital Signs Last response 3 Temperature 37.2 C 11/26/24 04:00 Temperature Source Core 11/26/24 04:00 Pulse Rate 93 11/26/24 07:00 Pulse Strength Weak (1+) 11/25/24 07:55 Respiratory Rate 18 11/26/24 07:00 Respiratory Effort Normal, Non-Labored 11/26/24 04:00 Respiratory Depth Normal 11/26/24 04:00 Respiratory Pattern Normal 11/26/24 06:43 Blood Pressure 95/62 11/26/24 07:00 Blood Pressure Mean 73 11/26/24 07:00 Blood Pressure Source Monitor 11/26/24 07:00 Blood Pressure Position Sitting 11/25/24 19:00 Blood Pressure Location Right Arm 11/25/24 19:00 Pulse Ox 99 11/26/24 06:00 Oxygen Delivery Method Room Air 11/26/24 06:00 Oxygen Flow Rate (L/min) 2 11/25/24 08:00 Fraction of Inspired Oxygen (FIO2) 25 11/23/24 08:00 I&O: I&O Last 24 Hours 3 11/25/24 11/25/24 11/26/24 11:59 23:59 11:59 Intake Total 630.03 / 1536.26 906.23 / 1536.26 50 / 50 Output Total 350 / 1175 825 / 1175 600 / 600 Balance 280.03 / 361.26 81.23 / 361.26 -550 / -550 I&O: Total Stay 3 11/22/24 09:46 thru 11/26/24 06:00 Intake Total 4988.17 Output Total 7525 Balance -2536.83 Current Meds Ordered / Administered: Current meds ordered / Administered 3 Generic Name Dose Route Start Last Admin Trade Name Freq PRN Reason Stop Dose Admin Acetaminophen 650 mg 11/22/24 19:13 11/26/24 01:57 Acetaminophen 325 Mg Tablet PO 650 mg Q4H PRN PRN Administration Pain 1-10 Or Fever >100.7 Acetaminophen 650 mg 11/23/24 01:25 Acetaminophen 650 Mg Suppository RC Q4H PRN PRN Fever, pain 1-10 Albuterol/Ipratropium 3 ml 11/22/24 19:15 11/26/24 06:42 Ipratropium/Albuterol Sulfate 3 Ml Ampul.Neb INHALATION 3 ml Q6HWA.RT HARINI Administration Ezetimibe 10 mg 11/23/24 10:00 11/26/24 08:05 Ezetimibe 10 Mg Tablet PO 10 mg DAILY HARINI Administration Glucagon 1 mg 11/22/24 14:07 Glucagon 1 Mg/Ml Syringe IM X1 PRN HYPOGLYCEMIA Protocol Dextrose 250 mls @ 0 mls/hr 11/22/24 14:07 Dextrose 10%-Water IV .Q0M PRN HYPOGLYCEMIA Protocol As Directed Vancomycin IV-PHARMACY TO DOSE 500 mls @ 250 mls/hr 11/22/24 14:09 1 each/ Sodium Chloride IV X1 PRN Rx to Dose Protocol Cefepime HCl 1 gm/ Sodium 50 mls @ 100 mls/hr 11/22/24 15:00 11/26/24 05:52 Chloride IV Infused Q8 HARINI Infusion Sodium Chloride 250 mls @ 15 mls/hr 11/22/24 15:09 IV .[id number] PRN Saline Flush Sodium Chloride 250 mls @ 15 mls/hr 11/22/24 15:09 IV .[id number] PRN Additional IVPB Infusion Norepinephrine Bitartrate 8 mg 250 mls @ 9.375 mls/hr 11/24/24 21:10 11/25/24 22:28 / Sodium Chloride CONT INF Not Given .[id number] HARINI Protocol 5 MCG/MIN Insulin Glargine 20 unit 11/23/24 10:00 11/26/24 08:06 Insulin Glargine-Yfgn 100 Unit/Ml Pen SC 20 unit DAILY HARINI Administration Insulin Human Lispro 0 unit 11/22/24 16:00 11/26/24 08:04 Insulin Lispro 100 Unit/Ml Insuln.Pen SC 4 units ACHS HARINI Administration Protocol Midodrine 10 mg 11/25/24 07:30 11/26/24 08:05 Midodrine Hcl 5 Mg Tablet PO 10 mg TIDCM HARINI Administration Nitroglycerin 0.4 mg 11/22/24 14:09 Nitroglycerin (Inpatient Use) 0.4 Mg Tab.Subl SL Q5M PRN CARDIAC/CHEST PAIN Ondansetron HCl 4 mg 11/22/24 14:09 Ondansetron 4 Mg/2 Ml Vial IV Q8H PRN PRN NAUSEA/VOMITING Oxycodone HCl 5 mg 11/22/24 14:09 11/26/24 01:56 Oxycodone 5 Mg Tablet PO 5 mg Q4H PRN PRN Administration Pain Score 4-10 Pantoprazole Sodium 20 mg 11/23/24 10:00 11/26/24 08:05 Pantoprazole Sodium 20 Mg Tablet PO 20 mg DAILY HARINI Administration Sodium Chloride 10 - 40 ml 11/22/24 14:03 11/26/24 01:57 0.9% Saline Lock 10 Ml Syringe IV 20 ml UD PRN Administration SALINE FLUSH Vancomycin Protocol 1 lab 11/26/24 08:30 Vancomycin Trough/Random Due MC 11/26/24 10:30 DAILY HARINI Lab / Micro Data 11/26/24 01:50 11/26/24 01:50 Labs: Laboratory Results - last 24 hr 11/25/24 10:55: POC Glucose 183 H 11/25/24 16:12: POC Glucose 202 H 11/25/24 21:21: POC Glucose 174 H 11/26/24 01:50: WBC 9.7, RBC 4.70, Hgb 13.9, Hct 42.5, MCV 90.4, MCH 29.6, MCHC 32.7, RDW Std Deviation 48.3 H, RDW Coeff of Maycol 14.6, Plt Count 296, MPV 9.6, Immature Gran % (Auto) 0.500, Neut % (Auto) 77.4 H, Lymph % (Auto) 11.7 L, Gilliam % (Auto) 9.0, Eos % (Auto) 1.2, Baso % (Auto) 0.2, Absolute Neuts (auto) 7.5, Absolute Lymphs (auto) 1.13, Nucleated RBC % 0, Sodium 134, Potassium 4.2, Chloride 99, Carbon Dioxide 18.3 L, Anion Gap 16 H, BUN 46 H, Creatinine 1.24 H, Estim Creat Clear Calc 70.13, Est GFR (MDRD) Non-Af 65, BUN/Creatinine Ratio 37.1 H, Glucose 147 H, Calcium 8.8, Vancomycin Trough 23.1 H 11/26/24 07:53: POC Glucose 233 H Micro: Microbiology 11/24/24 14:15 Fluid - Thoracentesis Fluid Gram Stain - Final 11/24/24 14:15 Fluid - Thoracentesis Fluid Body Fluid Culture - Preliminary No growth-Final to follow 11/22/24 17:33 Wound - Ankle Gram Stain - Final 11/22/24 17:33 Wound - Ankle Wound Culture - Final Enterobacter cloacae complex Klebsiella oxytoca Enterococcus faecalis Staphylococcus aureus 11/22/24 19:01 Urine, Catheterized Urine Culture - Final Culture exhibits no growth. Rhythm Strip Rhythm Strip: Sinus Tach Rate: 111 Ectopy: None Assessment and Plan . Assessment and plan: Pt seen and examined. No acute events. Off NEpi since ~1700 yesterday. Afebrile. Making urine. PE: General: Well developed, acute on chronically ill appearing male who looks older than stated age, in no distress HEENT: anicteric Sclera, nl nose; supple neck, no masses Cardiovascular: S1/S2; No rubs, gallops; no displaced PM Respiratory: diminished; no crackles, wheezes, or rhonchi Abdominal: Non-tender; Non distended; hypoBS x 4; No Hepatosplenomegaly Extremities: Warm, well perfused; No cyanosis; 1-2+ RLE & 2-3+ LLE pitting, weeping, edema; Lt ankle wound dressed Skin: intact, no rashes Neurological: A&Ox 3; no gross deficits appreciated A/P: #Acute respiratory failure #Septic shock #Klebsiella bacteremia #PNA #Lt ankle wound #HFrEF with acute exacerbation (TTE 09/28 EF 35%) #BENOIT +/- CKD #COPD #DM #HTN -Wean supplemental oxygen to maintain saturations at or above 90%; mobilize/IS use as tolerated -SP NEpi to keep MAP > 65; BP chronically on low side; cont PO midodrine -Continue antimicrobials per ID recommendations; F/U Cx -Holding Entresto/spironolactone due to hypotension -Previously on Lasix gtt but stopped yesterday due to worsening shock & rising sCr; cont strict I/Os -Cont nebs -Cont glycemic monitoring/control Ok to downgrade. Will sign off but please notify if acute issues arise. The entirety of this encounter was done via Telemedicine
[2024-11-26 10:16] LABS: Vancomycin, Random Level 17.5 ug/mL (0.0-15.0)
--- NOTE | 2024-11-26 10:34 | PCM.RX.CS ---
Consult Antibiotic Management Pharmacy has been consulted to manage selected antibiotic: Vancomycin Type of Intervention Type of Consult: Follow-up Suspected Infection Suspected Infection: Sepsis and Bacteremia Prior Doses of Antibiotics Prior Doses of Antibiotics Received/Current Regimen: The most recent dose before it was held due to a high trough was 1250mg IV q12h Labs Labs: Sodium 134 mmol/L (133-145) 11/26/24 01:50 Potassium 4.2 mmol/L (3.3-5.1) 11/26/24 01:50 Chloride 99 mmol/L (98-108) 11/26/24 01:50 Carbon Dioxide 18.3 mmol/L (21.0-32.0) L 11/26/24 01:50 Anion Gap 16 (5-15) H 11/26/24 01:50 BUN 46 mg/dL (4-19) H 11/26/24 01:50 Creatinine 1.24 mg/dL (0.70-1.20) H 11/26/24 01:50 Est GFR (MDRD) Non-Af 65 (>60) 11/26/24 01:50 BUN/Creatinine Ratio 37.1 RATIO (10-20) H 11/26/24 01:50 Glucose 147 mg/dL (70-99) H 11/26/24 01:50 Vancomycin Trough 23.1 ug/mL (5.0-15.0) H 11/26/24 01:50 Random Vancomycin 17.5 ug/mL (0.0-15.0) H 11/26/24 09:40 Microbiology Microbiology: Microbiology 11/24/24 14:15 Fluid - Thoracentesis Fluid Gram Stain - Final 11/24/24 14:15 Fluid - Thoracentesis Fluid Body Fluid Culture - Preliminary No growth-Final to follow 11/22/24 17:33 Wound - Ankle Gram Stain - Final 11/22/24 17:33 Wound - Ankle Wound Culture - Final Enterobacter cloacae complex Klebsiella oxytoca Enterococcus faecalis Staphylococcus aureus 11/22/24 19:01 Urine, Catheterized Urine Culture - Final Culture exhibits no growth. 11/22/24 14:54 Blood Culture (Wb) - Right Hand Blood Culture - Preliminary No growth in 48 hours. 11/22/24 14:48 Blood Culture (Wb) - Left Hand Blood Culture - Preliminary No growth in 48 hours. 11/22/24 10:00 Blood Culture (Wb) - Anticubital Left Blood Culture - Preliminary No growth in 48 hours. 11/22/24 10:00 Blood Culture (Wb) - Anticubital Right Blood Culture - Final Klebsiella oxytoca 11/22/24 22:44 Nasal Secretion MRSA (PCR) - Final 11/22/24 23:05 Mucosa - Nasopharyngeal Respiratory Panel (PCR) - Final 11/22/24 19:01 Urine Catheter - Mayers Legionella Antigen - Final 11/22/24 19:01 Urine Catheter - Mayers Streptococcus pneumoniae Antigen (M - Final Dosing Weight Weight used for dosin kg Estimated Creatinine Clearance Estimated Creatinine Clearance: 70 ml/min Goal Trough Goal Trough: 15-20 mcg/mL Pharmacy Plan for Drug Dosing Pharmacy Plan for Drug Dosing: The vanc random level drawn this morning (approximately 20.5 hours after the most recent dose) was 17.5 mcg/ml. This is back below 20 so will resume dosing at a new dose of 750mg IV q12h. Check another trough before the 4th dose. Pharmacy Service will continue to monitor and adjust dosing as required. Follow-Up Labs Follow-Up Labs: Trough: Vancomycin Date/Time Labs Ordered Labs to be done on [date and time ordered]: 11/27/24 22:30
[2024-11-26] MEDS: Vancomycin HCl 750 MG in 0.9% Normal Saline (250mL Bag) 250 ML 250 MG IV ×2 (11:28→22:18)
--- NOTE | 2024-11-26 12:57 | PN_ITS ---
Subjective Subjective Patient seen and examined. He was sitting in his chair. He had been weaned off of the Levophed. He complained of pain and swelling in his lower extremities. Per his nurse patient has not been compliant with keeping his legs elevated. He has had increased seepage from his lower extremity wounds. Review of systems otherwise negative. Objective Data Objective Data Vital Signs: Vital Signs Temp Pulse Resp BP Pulse Ox O2 Del Method O2 Flow Rate 98.9 F 99 21 H 105/70 100 Room Air 2 11/26/24 10:00 11/26/24 12:24 11/26/24 12:24 11/26/24 10:00 11/26/24 10:00 11/26/24 10:00 11/25/24 08:00 FiO2 25 11/23/24 08:00 Oxygen Flow Rate (L/min) 2 Oxygen Delivery Method Room Air Weight: 205 lb 0.478 oz Body Mass Index (BMI) 28.7 Intake & Output: Intake and Output for Last 24 Hours 11/24/24 11/25/24 11/26/24 23:59 23:59 23:59 Intake Total 438.78 / 448.18 1536.26 / 1536.26 50 / 50 Output Total 2350 / 2350 1175 / 1175 600 / 600 Balance -1911.22 / -1901.82 361.26 / 361.26 -550 / -550 Lab / Micro Data 11/26/24 01:50 11/26/24 01:50 Labs: Laboratory Results - last 24 hr 11/25/24 16:12: POC Glucose 202 H 11/25/24 21:21: POC Glucose 174 H 11/26/24 01:50: WBC 9.7, RBC 4.70, Hgb 13.9, Hct 42.5, MCV 90.4, MCH 29.6, MCHC 32.7, RDW Std Deviation 48.3 H, RDW Coeff of Maycol 14.6, Plt Count 296, MPV 9.6, Immature Gran % (Auto) 0.500, Neut % (Auto) 77.4 H, Lymph % (Auto) 11.7 L, [place] % (Auto) 9.0, Eos % (Auto) 1.2, Baso % (Auto) 0.2, Absolute Neuts (auto) 7.5, Absolute Lymphs (auto) 1.13, Nucleated RBC % 0, Sodium 134, Potassium 4.2, Chloride 99, Carbon Dioxide 18.3 L, Anion Gap 16 H, BUN 46 H, Creatinine 1.24 H, Estim Creat Clear Calc 70.13, Est GFR (MDRD) Non-Af 65, BUN/Creatinine Ratio 37.1 H, Glucose 147 H, Calcium 8.8, Vancomycin Trough 23.1 H 11/26/24 07:53: POC Glucose 233 H 11/26/24 09:40: Random Vancomycin 17.5 H 11/26/24 11:24: POC Glucose 146 H Micro: Microbiology 11/24/24 14:15 Fluid - Thoracentesis Fluid Gram Stain - Final 11/24/24 14:15 Fluid - Thoracentesis Fluid Body Fluid Culture - Preliminary No growth-Final to follow 11/22/24 17:33 Wound - Ankle Gram Stain - Final 11/22/24 17:33 Wound - Ankle Wound Culture - Final Enterobacter cloacae complex Klebsiella oxytoca Enterococcus faecalis Staphylococcus aureus 11/22/24 19:01 Urine, Catheterized Urine Culture - Final Culture exhibits no growth. 11/22/24 14:54 Blood Culture (Wb) - Right Hand Blood Culture - Preliminary No growth in 48 hours. 11/22/24 14:48 Blood Culture (Wb) - Left Hand Blood Culture - Preliminary No growth in 48 hours. 11/22/24 10:00 Blood Culture (Wb) - Anticubital Left Blood Culture - Preliminary No growth in 48 hours. 11/22/24 10:00 Blood Culture (Wb) - Anticubital Right Blood Culture - Final Klebsiella oxytoca 11/22/24 22:44 Nasal Secretion MRSA (PCR) - Final 11/22/24 23:05 Mucosa - Nasopharyngeal Respiratory Panel (PCR) - Final 11/22/24 19:01 Urine Catheter - Mayers Legionella Antigen - Final 11/22/24 19:01 Urine Catheter - Mayers Streptococcus pneumoniae Antigen (M - Final Rhythm Strip Rhythm Strip: Sinus Tach Rate: 111 Ectopy: None Physical Exam Const alert and oriented x3 Constitutional Narrative: frail, weak. Anxious General Appearance: cooperative HEENT normocephalic, head/scalp atraumatic and oropharynx normal Eyes PERRL, EOMs intact bilaterally and conjunctivae normal Neck supple and no JVD Lymph Lymphatic: no lymphedema noted Resp normal respiratory effort and no retractions Resp Narrative: on room air. tachypneic. has mildly diminished breath sounds bilaterally, no wheezes or crackles. Cardio regular rate, regular rhythm, S1 normal heart sound, S2 normal heart sound and no murmurs Cardio Narrative: mild tachycardia GI normal to inspection, nondistended, normoactive bowel sounds, soft to palpation and non-tender Extremity Extremity Narrative: has erythema of lower extremities bilaterally, from ankle to dent, with superficial ulcerations with some discharge over RLE dent. Mild differential warmth and swelling. Both LEs now wrapped in bandage. Skin Skin Narrative: as under extremities. Intact dressing over right thoracentesis site. Neuro oriented x3, CN's II-XII intact bilaterally and moves all extremities Sensorium / Orientation: awake Motor Exam: general weakness Psych thought process normal, cooperative and affect normal Psych Narrative: weak, frail Mood & Affect: flat affect Assessment & Plan Assessment/Plan (1) Severe sepsis: PLAN: Plan #Septic shock due to cellulitis of the lower extremities and pneumonia with bilateral pleural effusion. * Patient admitted with complaint of weakness and failure to thrive. He did meet sepsis criteria as he is tachycardic and tachypneic and lactic acid is also elevated at 4 which meets evidence of endorgan damage. * wbc is 16.4 today. * ABG showed pH of 7.43 with bicarb of 15 and PCO2 of 22.6 as well as PO2 of 74. CT chest showed bilateral pleural effusion, larger on the right and evidence of right lower lobe consolidation indicated of pneumonia. * Critical care on board. Blood cultures and urine cultures pending. Remains on IV vancomycin and cefepime. * had diagnostic thoracentesis done on with removal of 1.15L of of fluid. Fluid cultures and labs pending. * Titrate oxygen to maintain saturation above 90%. Breathing treatments bronchodilators. ID on baord * now off lasix drip. * critical care also on board * on room air now. * blood cultures growing Klebsiella oxytoca. Continue vancomycin and cefepime * bilateral lower extremity duplex was negative for any evidence of DVT * weaned off levophed. * chest xray after thoracentesis showed bibasilar linear opacities favoring atelectasis and intervally decreased right pleural effusion * started on midodrine. * # Acute on chronic Heart failure with reduced ejection fraction: * proBNP was markedly elevated at >73338 * Breathing treatments bronchodilators. * Monitor intake and output. Fluid restriction to 1500 cc daily. * has known EF of 30-35% * nwas on lasix drip but weaned off. * on entresto and spironolactone.Hold these due to septic shock #BENOIT * Baseline creatinine from 11/13/2024 was 0.98. * Cr today is up to 1.24. may have been due to septic shock though he is also on vancomycina nd this can contribute * #Type 2 diabetes mellitus: * on lantus 20 units daily. Insulin sliding scale. Accu-Cheks ACHS. Also on dapagliflozin. Also on Entresto As well as spironolactone. #Diabetic cellulitis of the lower extremities * had cellulitis of the lower extremities for which he had a course of oral antibiotics. * still had erythema and oozing of the lower extremities, with some differential warmth * both LEs now wrapped in bandage. * Wound care on board. * on IV vancomycin and cefepime as above. * wound cultures growing gram negative rods lactose leaf fat scraper and Staph species. * counseled to keep LEs elevated * #CAD: On aspirin and Plavix as well as high intensity statin. Also on Repatha. #Debility and weakness with failure to thrive. Patient states he passed out at home. Apparently seems like he was very weak and slid to the floor and did not hit his head. PT OT on board. Fall precautions. #Nicotine dependence: Counseled to quit. Nicotine patch 21 mg daily. CODE STATUS: Full code * Charges/Coding Visit Charges Inpatient E&M: 49386 Subs Hosp L2
[2024-11-27] VITALS (17 sets, daily range): BP systolic 87–118; BP diastolic 51–83; PULSE 89–105; RESP 16–25; TEMP 36.2–37.3; O2SAT 93–98
[2024-11-27 03:24] LABS: Hematocrit 38.7 % (40-54); Hemoglobin 12.9 g/dL (13.0-16.5); Immature Granulocytes Count 0.100 X10^3/uL (0.0-0.0); Mean Corp Hgb Conc 33.3 g/dL (32-36); Mean Corpuscular Volume 89.8 fL (80-94); Mean Platelet Vol. 9.8 fl (6.2-12.0); NRBC Flagged by Analyzer 0 % (0-5); Platelet Count 278 K/mm3 (150-450); RBC Distribution Width CV 14.7 % (11.6-14.6); RBC Distribution Width SD 47.9 fl (35.1-43.9); Red Blood Count 4.31 M/mm3 (4.6-6.2); White Blood Count 10.5 K/mm3 (4.4-11.0)
[2024-11-27] MEDS: Cefepime HCl 1 GM in 0.9% Normal Saline (50mL MB+) 50 ML IV ×3 (06:42→20:39)
[2024-11-27] MEDS: Insulin Glargine-YFGN 100 UNIT/ML Pen 20 UNIT SC (07:44)
--- NOTE | 2024-11-27 09:47 | PN_ITS ---
Subjective Subjective Patient seen and examined. He complained of tightness in his lower extremities, just above the wraps which extend up to his thighs. He did not need to go back on the levophed and says he kept his legs elevated overnight. Review of systems is otherwise negative. Objective Data Objective Data Vital Signs: Vital Signs Temp Pulse Resp BP Pulse Ox O2 Del Method O2 Flow Rate 98.8 F 104 H 19 H 96/82 H 97 Room Air 2 11/27/24 06:00 11/27/24 07:00 11/27/24 07:00 11/27/24 07:00 11/27/24 07:00 11/27/24 07:00 11/25/24 08:00 FiO2 25 11/23/24 08:00 Oxygen Flow Rate (L/min) 2 Oxygen Delivery Method Room Air Weight: 205 lb 0.478 oz Body Mass Index (BMI) 28.7 Intake & Output: Intake and Output for Last 24 Hours 11/25/24 11/26/24 11/27/24 23:59 23:59 23:59 Intake Total 1536.26 / 1536.26 1340 / 1340 50 / 50 Output Total 1175 / 1175 1150 / 1400 550 / 550 Balance 361.26 / 361.26 190 / -60 -500 / -500 Lab / Micro Data 11/27/24 03:15 11/26/24 01:50 Labs: Laboratory Results - last 24 hr 11/26/24 09:40: Random Vancomycin 17.5 H 11/26/24 11:24: POC Glucose 146 H 11/26/24 16:22: POC Glucose 192 H 11/26/24 20:59: POC Glucose 186 H 11/27/24 03:15: WBC 10.5, RBC 4.31 L, Hgb 12.9 L, Hct 38.7 L, MCV 89.8, MCH 29.9, MCHC 33.3, RDW Std Deviation 47.9 H, RDW Coeff of Maycol 14.7 H, Plt Count 278, MPV 9.8, Immature Gran % (Auto) 1.000 H, Neut % (Auto) 75.7 H, Lymph % (Auto) 10.5 L, [place] % (Auto) 10.2 H, Eos % (Auto) 2.4, Baso % (Auto) 0.2, A bsolute Neuts (auto) 8.0 H, Absolute Lymphs (auto) 1.10, Nucleated RBC % 0, Sodium Cancelled, Potassium Cancelled, Chloride Cancelled, Carbon Dioxide Cancelled, Anion Gap Cancelled, BUN Cancelled, Creatinine Cancelled, Estim Creat Clear Calc Cancelled, Est GFR (MDRD) Non-Af Cancelled, BUN/Creatinine Ratio Cancelled, Glucose Cancelled, Calcium Cancelled 11/27/24 07:38: POC Glucose 175 H Micro: Microbiology 11/24/24 14:15 Fluid - Thoracentesis Fluid Gram Stain - Final 11/24/24 14:15 Fluid - Thoracentesis Fluid Body Fluid Culture - Preliminary No growth-Final to follow 11/24/24 14:15 Fluid - Thoracentesis Fluid Anaerobic Culture - Preliminary No growth in 48 hours. 11/22/24 17:33 Wound - Ankle Gram Stain - Final 11/22/24 17:33 Wound - Ankle Wound Culture - Final Enterobacter cloacae complex Klebsiella oxytoca Enterococcus faecalis Staphylococcus aureus 11/22/24 19:01 Urine, Catheterized Urine Culture - Final Culture exhibits no growth. 11/22/24 14:54 Blood Culture (Wb) - Right Hand Blood Culture - Preliminary No growth in 48 hours. 11/22/24 14:48 Blood Culture (Wb) - Left Hand Blood Culture - Preliminary No growth in 48 hours. 11/22/24 10:00 Blood Culture (Wb) - Anticubital Left Blood Culture - Preliminary No growth in 48 hours. 11/22/24 10:00 Blood Culture (Wb) - Anticubital Right Blood Culture - Final Klebsiella oxytoca 11/22/24 22:44 Nasal Secretion MRSA (PCR) - Final 11/22/24 23:05 Mucosa - Nasopharyngeal Respiratory Panel (PCR) - Final 11/22/24 19:01 Urine Catheter - Mayers Legionella Antigen - Final 11/22/24 19:01 Urine Catheter - Mayers Streptococcus pneumoniae Antigen (M - Final Rhythm Strip Rhythm Strip: Sinus Tach Rate: 111 Ectopy: None Physical Exam Const alert and oriented x3 Constitutional Narrative: frail, Anxious General Appearance: cooperative HEENT normocephalic, head/scalp atraumatic and oropharynx normal Eyes PERRL, EOMs intact bilaterally and conjunctivae normal Neck supple and no JVD Lymph Lymphatic: no lymphedema noted Resp normal respiratory effort and no retractions Resp Narrative: on room air. has mildly diminished breath sounds bilaterally, no wheezes or crackles. Cardio regular rhythm, S1 normal heart sound, S2 normal heart sound and no murmurs Cardio Narrative: mild tachycardia GI normal to inspection, nondistended, normoactive bowel sounds, soft to palpation and non-tender Extremity Extremity Narrative: has erythema of lower extremities bilaterally, from ankle to dent, with superficial ulcerations with some discharge over RLE dent. Mild differential warmth and swelling. Both LEs now wrapped in bandage. Skin Skin Narrative: as under extremities. Intact dressing over right thoracentesis site. Neuro oriented x3, CN's II-XII intact bilaterally and moves all extremities Sensorium / Orientation: awake Motor Exam: general weakness Psych thought process normal, cooperative and affect normal Psych Narrative: weak, frail Mood & Affect: flat affect Assessment & Plan Assessment/Plan (1) Severe sepsis: PLAN: Plan #Septic shock due to cellulitis of the lower extremities and pneumonia with bilateral pleural effusion. * Patient admitted with complaint of weakness and failure to thrive. He did meet sepsis criteria as he is tachycardic and tachypneic and lactic acid is also elevated at 4 which meets evidence of endorgan damage. * wbc is down to 10.5 today * ABG showed pH of 7.43 with bicarb of 15 and PCO2 of 22.6 as well as PO2 of 74. CT chest showed bilateral pleural effusion, larger on the right and evidence of right lower lobe consolidation indicated of pneumonia. * Critical care on board. Blood cultures and urine cultures pending. Remains on IV vancomycin and cefepime. * had diagnostic thoracentesis done on with removal of 1.15L of of fluid. Fluid cultures and labs pending. * Titrate oxygen to maintain saturation above 90%. Breathing treatments bronchodilators. ID on board * now off lasix drip. * critical care also on board * on room air now. * blood cultures growing Klebsiella oxytoca. Continue vancomycin and cefepime * bilateral lower extremity duplex was negative for any evidence of DVT * weaned off levophed. * chest xray after thoracentesis showed bibasilar linear opacities favoring atelectasis and intervally decreased right pleural effusion * remains on midodrine. * septic shock has resolved. * # Acute on chronic Heart failure with reduced ejection fraction: * proBNP was markedly elevated at >02019 * Breathing treatments bronchodilators. * Monitor intake and output. Fluid restriction to 1500 cc daily. * has known EF of 30-35% * now off lasix drip due to low BP * on entresto and spironolactone. These were held due to septic shock #BENOIT * resolved. Cr is 1.03 today. * Hyponatermia: Na is 130 today. Does not appear dehydrated nor fluid overloaded. WIll monitor for now and if it drops some more, will consider further workup for hyponatremia. #Type 2 diabetes mellitus: * on lantus 20 units daily. Insulin sliding scale. Accu-Cheks ACHS. Also on dapagliflozin. Also on Entresto As well as spironolactone. #Diabetic cellulitis of the lower extremities * had cellulitis of the lower extremities for which he had a course of oral antibiotics. * still had erythema and oozing of the lower extremities, with some differential warmth * both LEs now wrapped in bandage. * Wound care on board. * on IV vancomycin and cefepime as above. * wound cultures growing gram negative rods lactose portable machine cutter and Staph species. * counseled to keep LEs elevated * #CAD: On aspirin and Plavix as well as high intensity statin. Also on Repatha. #Debility and weakness with failure to thrive. Patient states he passed out at home. Apparently seems like he was very weak and slid to the floor and did not hit his head. PT OT on board. Fall precautions. #Nicotine dependence: Counseled to quit. Nicotine patch 21 mg daily. CODE STATUS: Full code Disposition: transfer to [facility] * Charges/Coding Visit Charges Inpatient E&M: 39955 Subs Hosp L2
[2024-11-27 09:52] LABS: Anion Gap 13 (5-15); BUN 37 mg/dL (4-19); BUN/Creat Ratio 36.2 RATIO (10-20); Calcium,Total 8.6 mg/dL (7.6-11.0); Carbon Dioxide 15.3 mmol/L (21.0-32.0); Chloride 101 mmol/L (98-108); Estimated Creatinine Clearance 84.42 ml/min (50-250); Glucose 176 mg/dL (70-99); Potassium 4.5 mmol/L (3.3-5.1)
[2024-11-27] MEDS: Vancomycin HCl 750 MG in 0.9% Normal Saline (250mL Bag) 250 ML 250 MG IV ×2 (11:56→23:42)
[2024-11-27] MEDS: 0.9% Normal Saline (250mL Bag) 250 ML 15 ML IV (11:56)
[2024-11-27] MEDS: Senna Tablet 2 TABLET PO (16:04)
[2024-11-27] MEDS: Polyethylene Glycol 3350 17 GM PACKET PO (16:05)
[2024-11-27 23:08] LABS: Vancomycin, Trough Level 17.8 ug/mL (5.0-15.0)
--- NOTE | 2024-11-27 23:50 | PCM.RX.CS ---
Consult Antibiotic Management Pharmacy has been consulted to manage selected antibiotic: Vancomycin Type of Intervention Type of Consult: Follow-up Labs Labs: Sodium 130 mmol/L (133-145) L 11/27/24 09:25 Potassium 4.5 mmol/L (3.3-5.1) 11/27/24 09:25 Chloride 101 mmol/L (98-108) 11/27/24 09:25 Carbon Dioxide 15.3 mmol/L (21.0-32.0) L 11/27/24 09:25 Anion Gap 13 (5-15) 11/27/24 09:25 BUN 37 mg/dL (4-19) H 11/27/24 09:25 Creatinine 1.03 mg/dL (0.70-1.20) 11/27/24 09:25 Est GFR (MDRD) Non-Af 81 (>60) 11/27/24 09:25 BUN/Creatinine Ratio 36.2 RATIO (10-20) H 11/27/24 09:25 Glucose 176 mg/dL (70-99) H 11/27/24 09:25 Vancomycin Trough 17.8 ug/mL (5.0-15.0) H 11/27/24 22:28 Random Vancomycin 17.5 ug/mL (0.0-15.0) H 11/26/24 09:40 Microbiology Microbiology: Microbiology 11/22/24 14:48 Blood Culture (Wb) - Left Hand Blood Culture - Final No growth in 5 days. 11/22/24 10:00 Blood Culture (Wb) - Anticubital Left Blood Culture - Final No growth in 5 days. 11/22/24 14:54 Blood Culture (Wb) - Right Hand Blood Culture - Final No growth in 5 days. 11/24/24 14:15 Fluid - Thoracentesis Fluid Gram Stain - Final 11/24/24 14:15 Fluid - Thoracentesis Fluid Body Fluid Culture - Final Culture exhibits no growth. 11/24/24 14:15 Fluid - Thoracentesis Fluid Anaerobic Culture - Preliminary No growth in 48 hours. 11/22/24 17:33 Wound - Ankle Gram Stain - Final 11/22/24 17:33 Wound - Ankle Wound Culture - Final Enterobacter cloacae complex Klebsiella oxytoca Enterococcus faecalis Staphylococcus aureus 11/22/24 19:01 Urine, Catheterized Urine Culture - Final Culture exhibits no growth. 11/22/24 10:00 Blood Culture (Wb) - Anticubital Right Blood Culture - Final Klebsiella oxytoca 11/22/24 22:44 Nasal Secretion MRSA (PCR) - Final 11/22/24 23:05 Mucosa - Nasopharyngeal Respiratory Panel (PCR) - Final 11/22/24 19:01 Urine Catheter - Mayers Legionella Antigen - Final 11/22/24 19:01 Urine Catheter - Mayers Streptococcus pneumoniae Antigen (M - Final Goal Trough Goal Trough: 15-20 mcg/mL Pharmacy Plan for Drug Dosing Pharmacy Plan for Drug Dosing: Pharmacy Service will continue to monitor and adjust dosing as required. TROUGH 17.8 @ 10.5 HOURS. NO CHANGES, FOLLOW UP TROUGH IN 2 DAYS Follow-Up Labs Follow-Up Labs: Trough: Vancomycin Date/Time Labs Ordered Labs to be done on [date and time ordered]: 11/29 @ 5389
[2024-11-28] VITALS (13 sets, daily range): BP systolic 101–130; BP diastolic 58–85; PULSE 94–105; RESP 15–20; TEMP 36.3–36.6; O2SAT 95–100
[2024-11-28] MEDS: Cefepime HCl 1 GM in 0.9% Normal Saline (50mL MB+) 50 ML IV ×2 (06:28→14:07)
[2024-11-28 07:26] LABS: Hematocrit 40.6 % (40-54); Hemoglobin 13.3 g/dL (13.0-16.5); Immature Granulocytes Count 0.130 X10^3/uL (0.0-0.0); Mean Corp Hgb Conc 32.8 g/dL (32-36); Mean Corpuscular Volume 89.6 fL (80-94); Mean Platelet Vol. 9.7 fl (6.2-12.0); NRBC Flagged by Analyzer 0 % (0-5); Platelet Count 331 K/mm3 (150-450); RBC Distribution Width CV 14.8 % (11.6-14.6); RBC Distribution Width SD 48.9 fl (35.1-43.9); Red Blood Count 4.53 M/mm3 (4.6-6.2); White Blood Count 8.6 K/mm3 (4.4-11.0)
[2024-11-28 08:08] LABS: Anion Gap 13 (5-15); BUN 33 mg/dL (4-19); BUN/Creat Ratio 31.0 RATIO (10-20); Calcium,Total 9.1 mg/dL (7.6-11.0); Carbon Dioxide 19.2 mmol/L (21.0-32.0); Chloride 102 mmol/L (98-108); Estimated Creatinine Clearance 81.27 ml/min (50-250); Glucose 119 mg/dL (70-99); Potassium 4.6 mmol/L (3.3-5.1)
--- NOTE | 2024-11-28 09:18 | PN.HOSP_ITS ---
Subjective Subjective Has had some confusion. Objective Data Objective Data Vital Signs: Vital Signs Temp Pulse Resp BP Pulse Ox O2 Del Method O2 Flow Rate 36.3 C L 99 16 114/73 98 Room Air 2 11/28/24 03:30 11/28/24 07:55 11/28/24 07:55 11/28/24 03:30 11/28/24 07:55 11/28/24 07:55 11/25/24 08:00 FiO2 25 11/23/24 08:00 Oxygen Flow Rate (L/min) 2 Oxygen Delivery Method Room Air Weight: 93 kg Body Mass Index (BMI) 28.7 Intake & Output: Intake and Output for Last 24 Hours 11/26/24 11/27/24 11/28/24 23:59 23:59 23:59 Intake Total 1340 / 1340 902.5 / 902.5 315 / 315 Output Total 1150 / 1400 1250 / 1250 Balance 190 / -60 -347.5 / -347.5 315 / 315 Lab / Micro Data 11/28/24 07:15 11/28/24 07:15 Labs: Laboratory Results - last 24 hr 11/27/24 09:25: Sodium 130 L, Potassium 4.5, Chloride 101, Carbon Dioxide 15.3 L , Anion Gap 13, BUN 37 H, Creatinine 1.03, Estim Creat Clear Calc 84.42, Est GFR (MDRD) Non-Af 81, BUN/Creatinine Ratio 36.2 H, Glucose 176 H, Calcium 8.6 11/27/24 11:30: POC Glucose 149 H 11/27/24 16:01: POC Glucose 198 H 11/27/24 21:28: POC Glucose 151 H 11/27/24 22:28: Vancomycin Trough 17.8 H 11/28/24 06:27: POC Glucose 117 H 11/28/24 07:15: WBC 8.6, RBC 4.53 L, Hgb 13.3, Hct 40.6, MCV 89.6, MCH 29.4, MCHC 32.8, RDW Std Deviation 48.9 H, RDW Coeff of Maycol 14.8 H, Plt Count 331, MPV 9.7, Immature Gran % (Auto) 1.500 H, Neut % (Auto) 66.2, Lymph % (Auto) 17.1 L, [place] % (Auto) 11.9 H, Eos % (Auto) 3.0, Baso % (Auto) 0.3, Absolute Neuts (auto) 5.7, Absolute Lymphs (auto) 1.47, Nucleated RBC % 0, Sodium 135, Potassium 4.6, Chloride 102, Carbon Dioxide 19.2 L, Anion Gap 13, BUN 33 H, Creatinine 1.07, Estim Creat Clear Calc 81.27, Est GFR (MDRD) Non-Af 77, BUN/Creatinine Ratio 31.0 H, Glucose 119 H, Calcium 9.1 Micro: Microbiology 11/22/24 14:48 Blood Culture (Wb) - Left Hand Blood Culture - Final No growth in 5 days. 11/22/24 10:00 Blood Culture (Wb) - Anticubital Left Blood Culture - Final No growth in 5 days. 11/22/24 14:54 Blood Culture (Wb) - Right Hand Blood Culture - Final No growth in 5 days. 11/24/24 14:15 Fluid - Thoracentesis Fluid Gram Stain - Final 11/24/24 14:15 Fluid - Thoracentesis Fluid Body Fluid Culture - Final Culture exhibits no growth. 11/24/24 14:15 Fluid - Thoracentesis Fluid Anaerobic Culture - Preliminary No growth in 48 hours. 11/22/24 17:33 Wound - Ankle Gram Stain - Final 11/22/24 17:33 Wound - Ankle Wound Culture - Final Enterobacter cloacae complex Klebsiella oxytoca Enterococcus faecalis Staphylococcus aureus 11/22/24 19:01 Urine, Catheterized Urine Culture - Final Culture exhibits no growth. 11/22/24 10:00 Blood Culture (Wb) - Anticubital Right Blood Culture - Final Klebsiella oxytoca 11/22/24 22:44 Nasal Secretion MRSA (PCR) - Final 11/22/24 23:05 Mucosa - Nasopharyngeal Respiratory Panel (PCR) - Final 11/22/24 19:01 Urine Catheter - Mayers Legionella Antigen - Final 11/22/24 19:01 Urine Catheter - Mayers Streptococcus pneumoniae Antigen (M - Final Rhythm Strip Rhythm Strip: Sinus Tach Rate: 111 Ectopy: None Physical Exam Const Constitutional Narrative: up in chair eating lunch. HEENT head/scalp atraumatic and moist oral mucous membranes Resp normal respiratory effort, no retractions, no use of accessory muscles and clear to auscultation bilaterally Cardio regular rate, regular rhythm, S1 normal heart sound and S2 normal heart sound GI normal to inspection, nondistended, normoactive bowel sounds, soft to palpation, non-tender and non-distended Extremity Extremity Narrative: edema in BLE with lymphedema wraps. Neuro oriented x3, CN's II-XII intact bilaterally, moves all extremities, no focal motor deficits and no sensory deficits noted Psych affect normal Assessment & Plan Assessment/Plan (1) Severe sepsis: PLAN: Plan Septic shock * POA. * Klebsiella bacteremia. Source ankle v pneumonia. * Completed 7 days of abx Pleural effusion * transudative 2/2 HFrEF * had diagnostic thoracentesis done on with removal of 1.15L of of fluid. Acute HFrEF: * proBNP was markedly elevated at >06883 * Monitor intake and output. Fluid restriction to 1500 cc daily. * has known EF of 30-35% from Echo on 09/19/2024 * now off lasix drip due to low BP BENOIT * resolved. Chronic conditions: * Type 2 diabetes mellitus:on lantus 20 units daily. Insulin sliding scale. Accu-Cheks ACHS. Also on dapagliflozin. * CAD: On aspirin and Plavix as well as high intensity statin. Also on Repatha. Debility and weakness with failure to thrive. Patient states he passed out at home. Apparently seems like he was very weak and slid to the floor and did not hit his head. PT OT on board. Fall precautions. CODE STATUS: Full code Disposition: plan for SNF Charges/Coding Visit Charges Inpatient E&M: 95410 Subs Hosp L2
--- NOTE | 2024-11-28 09:18 | CASEMGMT ---
Discharge Planning Updates sent to [facility] with request to submit for precert. Tiffany Perdomo DC Planning Asst.
[2024-11-28] MEDS: Insulin Glargine-YFGN 100 UNIT/ML Pen 20 UNIT SC (09:32)
[2024-11-28 10:08] LABS: pH, Body Fluid 11254 7.5 (Not Estab.)
--- NOTE | 2024-11-28 10:49 | WOUNDNOTE ---
wound photo: left dorsal foot
--- NOTE | 2024-11-28 10:50 | WOUNDNOTE ---
wound photo: right lower leg
--- NOTE | 2024-11-28 10:51 | WOUNDNOTE ---
wound photo: left lower leg
[2024-11-28] MEDS: Vancomycin HCl 750 MG in 0.9% Normal Saline (250mL Bag) 250 ML IV (12:26)
--- NOTE | 2024-11-28 14:15 | PCM.PN.ID ---
Physical Exam Narrative Feeling better, legs less sore, still some dyspnea, no fever Const alert and no apparent distress General Appearance: cooperative Resp Auscultation: rhonchi and wheezes Cardio regular rate and regular rhythm GI soft to palpation, non-tender and non-distended Extremity General Extremity: edema Skin no rashes or lesions noted ID ID: Route of nutrition/ use of supplements: [] Nutritional Intake: [] IV Site: [] Mayers Catheter: [] Assessment & Plan Assessment/Plan (1) Severe sepsis: PLAN: klebs bacteremia, suspect source L ankle wound vs pneumonia. On vanc/cefepime. L ankle wound cx with enterobacter, klebs, e faecalis, and MSSA. Day 7 of abx, will stop today. Will follow as needed (2) Bacteremia due to Gram-negative bacteria:
--- NOTE | 2024-11-28 20:49 | CT_ITS ---
PROCEDURE: STROKE CT BRAIN/HEAD WITHOUT CONTRAST 11/28/2024 REASON FOR EXAM: STROKE ALERT TECHNIQUE: CT STROKE BRAIN/HEAD WITHOUT CONTRAST. Coronal and Sagittal reconstruction series were provided. One or more dose reduction techniques were used (e.g., Automated exposure control, adjustment of the mA and/or kV according to patient size, use of iterative reconstruction technique. RADIATION DOSE SUMMARY: CTDlvol: 44.99 mGy DLP: 863.6 mGycm COMPARISON: 04/25/2023 FINDINGS: No acute intracranial hemorrhage, extra-axial collection, mass effect or evidence of acute infarct. Mild generalized brain parenchymal volume loss, and moderate chronic small- vessel ischemic changes with multiple small scattered foci of chronic lacunar and cortical infarcts in the bilateral cerebral and cerebellar hemispheres, no significant interval change. Atherosclerotic vascular calcifications. Unremarkable orbits. Intact skull base and calvarium. Clear sinuses and mastoid air cells. CT/STROKE Brain/Head without Cont IMPRESSION: No acute intracranial abnormality. Stable appearing moderate chronic small-vess el ischemic changes with multiple small foci of chronic infarct in the bilateral cerebral and cerebellar hemispheres. Reading Location: [id number]
--- NOTE | 2024-11-28 21:00 | CT_ITS ---
PROCEDURE: STROKE CTA HEAD AND NECK W/CON 11/28/2024 REASON FOR EXAM: STROKE ALERT TECHNIQUE: STROKE CTA HEAD AND NECK W/CON Multiplanar Sagittal and Coronal images were obtained. 3D and MIP post processing was performed. CONTRAST: Isovue 370 VOLUME: 81 mL One or more dose reduction techniques were used (e.g., Automated exposure control, adjustment of the mA and/or kV according to patient size, use of iterative reconstruction technique). RADIATION DOSE SUMMARY: DLP: 698.55 mGycm COMPARISON: CTA neck 09/01/2023. FINDINGS: CTA HEAD: Patent major intracranial arterial vasculature. No large vessel occlusion, flow- limiting stenosis, saccular aneurysm, or vascular malformation identified. The right anterior and middle cerebral arteries are patent likely via collateral supply. Distal right ICA supraclinoid segment weakly reconstitutes distally probably due to retrograde filling from collateral flow. CTA NECK: Conventional aortic arch branching. Extensive mixed atheromatous plaque at the carotid artery bifurcations, with redemonstrated chronic occlusion of the right cervical ICA shortly past its origin, which is nonopacified through to the distal cavernous/supraclinoid ICA segment, where it weakly reconstitutes. Moderate stenosis of the left ICA origin. Atherosclerotic plaque along the carotid siphons. Advanced stenosis at the origin of the right vertebral artery secondary to atherosclerotic plaque. There is also moderate-advanced segmental stenosis of the distal right vertebral artery V4 segment due to irregular atheromatous plaque. Left vertebral artery is widely patent. No evidence of aneurysm or dissection. NON-ANGIOGRAPHIC FINDINGS: Mild multilevel degenerative changes of the cervical spine. Moderate right and small left pleural effusions in the bilateral imaged lung apices. Mild bilateral pulmonary emphysema. Enlarged heterogeneous multinodular thyroid gland. CT/STROKE CTA Head AND Neck W/Con IMPRESSION: 1. No acute large vessel intracranial arterial occlusion or high-grade stenosis . 2. 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 3. Moderate stenosis at the left cervical ICA origin due to mixed atheromatous plaque. 4. Moderate-advanced stenosis at the right vertebral artery origin, and along t he distal V4 segment secondary to atherosclerotic plaque. Widely patent left vertebral artery. 5. Moderate right and small left pleural effusions seen in the upper thorax. 6. Enlarged heterogeneous multinodular thyroid gland. Reading Location: [facility]
--- NOTE | 2024-11-28 21:34 | PN.HOSP_ITS ---
Reason for Visit Chief Complaint: Stroke alert Subjective Subjective 64-year-old male patient admitted on the for cellulitis of lower extremities, failure to thrive, COPD who presented with a sudden change in mental status provoking a stroke alert to be called at the PCU. Patient's last known well was 830 according to the nurse but after further evaluation and assessment with neurology we agreed that delirium began on the Thursday after we were able to obtain more history. Throughout the hospital stay the patient was noted to have developed some encephalopathic delirium on Thursday and has been progressing since that time. Patient was confused and thought to have a facial droop and was slurring his speech. Patient was sent to radiology for CT scan and telestroke consult to [facility] was obtained. Objective Data Objective Data Vital Signs: Vital Signs Temp Pulse Resp BP Pulse Ox O2 Del Method O2 Flow Rate 97.8 F 100 20 H 103/75 95 Room Air 2 11/28/24 16:04 11/28/24 19:35 11/28/24 19:35 11/28/24 16:04 11/28/24 16:04 11/28/24 16:04 11/25/24 08:00 FiO2 11/23/24 08:00 Oxygen Flow Rate (L/min) 2 Oxygen Delivery Method Room Air Weight: 205 lb 0.478 oz Body Mass Index (BMI) 28.7 Intake & Output: Intake and Output for Last 24 Hours 11/26/24 11/27/24 11/28/24 23:59 23:59 23:59 Intake Total 1340 / 1340 902.5 / 902.5 850 / 850 Output Total 1150 / 1400 1250 / 1250 Balance 190 / -60 -347.5 / -347.5 850 / 850 Lab / Micro Data 11/28/24 07:15 11/28/24 07:15 Labs: Laboratory Results - last 24 hr 11/24/24 14:15: Fluid pH 7.5, Fluid Amylase 11/27/24 21:28: POC Glucose 151 H 11/27/24 22:28: Vancomycin Trough 17.8 H 11/28/24 06:27: POC Glucose 117 H 11/28/24 07:15: WBC 8.6, RBC 4.53 L, Hgb 13.3, Hct 40.6, MCV 89.6, MCH 29.4, MCHC 32.8, RDW Std Deviation 48.9 H, RDW Coeff of Maycol 14.8 H, Plt Count 331, MPV 9.7, Immature Gran % (Auto) 1.500 H, Neut % (Auto) 66.2, Lymph % (Auto) 17.1 L, [place] % (Auto) 11.9 H, Eos % (Auto) 3.0, Baso % (Auto) 0.3, Absolute Neuts (auto) 5.7, Absolute Lymphs (auto) 1.47, Nucleated RBC % 0, Sodium 135, Potassium 4.6, Chloride 102, Carbon Dioxide 19.2 L, Anion Gap 13, BUN 33 H, Creatinine 1.07, Estim Creat Clear Calc 81.27, Est GFR (MDRD) Non-Af 77, BUN/Creatinine Ratio 31.0 H, Glucose 119 H, Calcium 9.1 11/28/24 12:21: POC Glucose 131 H 11/28/24 16:25: POC Glucose 111 H Micro: Microbiology 11/22/24 14:48 Blood Culture (Wb) - Left Hand Blood Culture - Final No growth in 5 days. 11/22/24 10:00 Blood Culture (Wb) - Anticubital Left Blood Culture - Final No growth in 5 days. 11/22/24 14:54 Blood Culture (Wb) - Right Hand Blood Culture - Final No growth in 5 days. 11/24/24 14:15 Fluid - Thoracentesis Fluid Gram Stain - Final 11/24/24 14:15 Fluid - Thoracentesis Fluid Body Fluid Culture - Final Culture exhibits no growth. 11/24/24 14:15 Fluid - Thoracentesis Fluid Anaerobic Culture - Preliminary No growth in 48 hours. 11/22/24 17:33 Wound - Ankle Gram Stain - Final 11/22/24 17:33 Wound - Ankle Wound Culture - Final Enterobacter cloacae complex Klebsiella oxytoca Enterococcus faecalis Staphylococcus aureus 11/22/24 19:01 Urine, Catheterized Urine Culture - Final Culture exhibits no growth. 11/22/24 10:00 Blood Culture (Wb) - Anticubital Right Blood Culture - Final Klebsiella oxytoca 11/22/24 22:44 Nasal Secretion MRSA (PCR) - Final 11/22/24 23:05 Mucosa - Nasopharyngeal Respiratory Panel (PCR) - Final 11/22/24 19:01 Urine Catheter - Mayers Legionella Antigen - Final 11/22/24 19:01 Urine Catheter - Mayers Streptococcus pneumoniae Antigen (M - Final Radiography Diagnostic Testing: Radiology Impression Brain CT 11/28/24 20:49 IMPRESSION: No acute intracranial abnormality. Stable appearing moderate chronic small- vessel ischemic changes with multiple small foci of chronic infarct in the bilateral cerebral and cerebellar hemispheres. Reading Location: [facility] [place] Rhythm Strip Rhythm Strip: Sinus Tach Rate: 111 Ectopy: None Physical Exam Const alert and no apparent distress Orientation / Consciousness: confused and lethargic HEENT head/scalp atraumatic Eyes PERRL Neck no lymphadenopathy Resp normal respiratory effort Cardio regular rate, regular rhythm, S1 normal heart sound and S2 normal heart sound GI normal to inspection, nondistended, normoactive bowel sounds Extremity Extremity Narrative: Cellulitic lower extremities bilateral General Extremity: edema bilateral lower extremity Details: moderate Neuro moves all extremities and no focal motor deficits Sensorium / Orientation: alert, oriented to person and oriented to place Coordination / Balance: kxuglw-[id number] test normal Assessment & Plan Assessment/Plan (1) Altered mental status: PLAN: Plan Due to change in mental status stroke alert team was called after evaluation with [facility] neurology it was determined that patient's last known well was Thursday and that his presentation was more consistent with encephalopathy/delirium. [facility] neurology requested MRI be ordered. Patient was more alert and comfortable after their this assessment and was returned to his room. NIHSS NIHSS Nursing Documentation NIHSS Nursing Documentation: NIHSS: Ischemic Stroke/TIA Start: 11/28/24 20:59 Freq: Status: Active Protocol: Activity Type Activity Date Activity User E-sign Co-sign Detail Recorded Client Recorded Date Recorded By Document 11/28/24 20:59 [facility] [place] [id number] 11/28/24 21:10 [facility] [place] 11/28/24 20:59 NIH Stroke Scale [NIHSS] A score of 0 is normal or asymptomatic . Total possible score is 42. Inpatient: RN or Physician to activate a stroke alert for onset of new stroke symptoms or with NIHSS increase >/= 3 points. Following change in neurological status, NIHSS will be performed per physician order or more frequently PRN. -1a. Level of Consciousness 0 - Alert; keenly responsive -1b. LOC Questions 1 - Answers ONE question correctly -1c. LOC Commands 0 - Performs BOTH tasks correctly -2. Best Gaze 1 - Partial gaze palsy; -3. Visual 0 - No visual loss -4. Facial Palsy 1 - Minor paralysis ( flattened nasolabial fold , asymmetry on smiling) -5a. Left Arm 1 - Drift; arm drifts downward but doesn?t hit the bed -5b. Right Arm 0 - No drift; arm holds 90 ( or 45) degrees for full 10 seconds -6a. Left Leg 2 - Some effort against gravity; -6b. Right Leg 2 - Some effort against gravity; -7. Limb Ataxia 0 - Absent -8. Sensory 1 - Mild-to- moderate sensory loss; -9. Best Language 0 - No aphasia; normal -10. Dysarthria 1 = Mild-to- moderate dysarthria; -11. Extinction and Inattention 0 - No abnormality -Total 10 Query Text:A score of 0 is normal or asymptomatic. Total possible score is 42 . ED: Notify Physician for NIHSS increase by > / = 3 points. Inpatient: RN or Physician to activate a stroke alert for NIHSS increase of > / = 3 points. NIHSS 1a. Level of Consciousness: 0 - Alert; keenly responsive 1b. LOC Questions: 0 - Answers BOTH questions correctly 1c. LOC Commands: 0 - Performs BOTH tasks correctly 2. Best Gaze: 0 - Normal 3. Visual: 0 - No visual loss 4. Facial Palsy: 1 - Minor paralysis (flattened nasolabial fold, asymmetry on smiling) 5a. Left Arm: 1 - Drift; arm drifts downward but doesn?t hit the bed 5b. Right Arm: 1 - Drift; arm drifts downward but doesn?t hit the bed 6a. Left Le - Some effort against gravity; 6b. Right Le - Drift; leg falls by the end of 5-seconds, but does not hit bed 7. Limb Ataxia: 0 - Absent 8. Sensory: 1 - Rgor-fr-[id number] sensory loss; 9. Best Language: 0 - No aphasia; normal 10. Dysarthria: 0 - Normal 11. Extinction and Inattention: 0 - No abnormality Total: 7 Stroke Questions Stroke Team Activated: Yes Reviewed Inclusion/Exclusion criteria: Yes Was Patient considered for Endovascular Intervention?: No-CTA negative, determined not to be an endovascular candidate IV Thrombolytic Administered: No No contraindications from thrombolytic administration: Yes Informed the patient and/or family of all associated risks, benefits, & alternatives to IV Thrombolytic Therapy. Patient and/or family voluntarily consent to the administration of IV Thrombolytic Therapy: Yes (Not applicable as patient is not a candidate) Critical care time (excluding procedures): 30-74 minutes and Performing Direct Patient Care at Bedside
--- NOTE | 2024-11-28 22:35 | EKG12_ITS ---
Test Reason : CP Blood Pressure : */* mmHG Vent. Rate : 95 BPM Atrial Rate : 95 BPM P-R Int : 152 ms QRS Dur : 86 ms QT Int : 378 ms P-R-T Axes : 46 29 158 degrees QTcB Int : 475 ms Normal sinus rhythm ST & T wave abnormality, consider lateral ischemia Prolonged QT Abnormal ECG When compared with ECG of 22-Nov-2024 10:51, No significant change was found Confirmed by BRIANNA DODSON ([id number]), field map editor LISS JARVIS ([id number]) on 11/29/2024 1:16:26 PM Referred By: Confirmed By: BRIANNA DODSON
[2024-11-29] VITALS (10 sets, daily range): BP systolic 115–130; BP diastolic 71–79; PULSE 89–110; RESP 16–24; TEMP 36.3–36.7; O2SAT 94–99; BMI 28.7; BMI 28.6
[2024-11-29 06:01] LABS: Hematocrit 39.1 % (40-54); Hemoglobin 12.8 g/dL (13.0-16.5); Immature Granulocytes Count 0.110 X10^3/uL (0.0-0.0); Mean Corp Hgb Conc 32.7 g/dL (32-36); Mean Corpuscular Volume 89.9 fL (80-94); Mean Platelet Vol. 9.5 fl (6.2-12.0); NRBC Flagged by Analyzer 0 % (0-5); Platelet Count 390 K/mm3 (150-450); RBC Distribution Width CV 14.9 % (11.6-14.6); RBC Distribution Width SD 49.1 fl (35.1-43.9); Red Blood Count 4.35 M/mm3 (4.6-6.2); White Blood Count 9.9 K/mm3 (4.4-11.0)
[2024-11-29 06:32] LABS: Anion Gap 13 (5-15); BUN 34 mg/dL (4-19); BUN/Creat Ratio 29.4 RATIO (10-20); Calcium,Total 9.0 mg/dL (7.6-11.0); Carbon Dioxide 17.3 mmol/L (21.0-32.0); Chloride 104 mmol/L (98-108); Estimated Creatinine Clearance 76.31 ml/min (50-250); Glucose 59 mg/dL (70-99); Potassium 4.9 mmol/L (3.3-5.1)
--- NOTE | 2024-11-29 08:43 | CASEMGMT ---
Addendum entered by Tiffany Perdomo 11/29/24 14:33: Auth expires 12/06. Original Note: [facility] has obtained auth to admit. VICKI CM updated. Tiffany Perdomo DC Planning Asst.
--- NOTE | 2024-11-29 10:52 | WOUNDNOTE ---
wound photo: left dorsal foot
--- NOTE | 2024-11-29 10:52 | WOUNDNOTE ---
wound photo: left medial lower leg
--- NOTE | 2024-11-29 10:53 | WOUNDNOTE ---
wound photo: right lower leg
--- NOTE | 2024-11-29 11:15 | CT_ITS ---
PROCEDURE: EXTREMITY LOWER WITH CONTRAST 11/29/2024 REASON FOR EXAM: LEFT FOOT PAIN AND SWELLING TECHNIQUE: EXTREMITY LOWER WITH CONTRAST Coronal and Sagittal reconstruction series were provided. CONTRAST: 99 cc Isovue-300 One or more dose reduction techniques were used (e.g., Automated exposure control, adjustment of the mA and/or kV according to patient size, use of iterative reconstruction technique). RADIATION DOSE SUMMARY: DLP: 576 mGycm COMPARISON: None FINDINGS: Bones: There is no fracture or dislocation identified. There is no suspicious lytic or blastic lesion identified to suggest osteomyelitis. There is no significant erosive disease. Joints: The joint spaces are maintained. A benign-appearing calcaneal spur is noted. Soft Tissues: There is subcutaneous edema, most pronounced at the dorsal aspect of the midfoot with no visible organized or drainable collection. There is no definite soft tissue air. Subcutaneous radiopaque densities are noted at the anterior aspect of the distal tibia, which may represent vascular clips. There are no suspicious enhancing lesions. CT/Extremity Lower WITH Contrast IMPRESSION: There is subcutaneous edema, most pronounced at the dorsal aspect of the midfoo t with no visible organized or drainable collection. The differential includes cellulitis and venous stasis. Subcutaneous radiopaque densities are noted at the anterior aspect of the dista l tibia, which may represent vascular clips. Reading Location: [facility]
[2024-11-29] MEDS: Insulin Glargine-YFGN 100 UNIT/ML Pen 20 UNIT SC (11:56)
--- NOTE | 2024-11-29 14:01 | PN.HOSP_ITS ---
Reason for Visit Chief Complaint: Stroke alert Subjective Subjective Confusion overnight, stroke team called. Objective Data Objective Data Vital Signs: Vital Signs Temp Pulse Resp BP Pulse Ox O2 Del Method O2 Flow Rate 36.4 C L 96 16 115/77 94 Room Air 2 11/29/24 11:31 11/29/24 11:31 11/29/24 11:31 11/29/24 11:31 11/29/24 11:31 11/29/24 11:31 11/25/24 08:00 FiO2 25 11/23/24 08:00 Oxygen Flow Rate (L/min) 2 Oxygen Delivery Method Room Air Weight: 93.1 kg Body Mass Index (BMI) 28.6 Intake & Output: Intake and Output for Last 24 Hours 11/27/24 11/28/24 11/29/24 23:59 23:59 23:59 Intake Total 902.5 / 902.5 850 / 850 Output Total 1250 / 1250 600 / 600 Balance -347.5 / -347.5 850 / 850 -600 / -600 Lab / Micro Data 11/29/24 05:38 11/29/24 05:38 Labs: Laboratory Results - last 24 hr 11/28/24 16:25: POC Glucose 111 H 11/28/24 20:31: POC Glucose 80 11/29/24 05:38: WBC 9.9, RBC 4.35 L, Hgb 12.8 L, Hct 39.1 L, MCV 89.9, MCH 29.4, MCHC 32.7, RDW Std Deviation 49.1 H, RDW Coeff of Maycol 14.9 H, Plt Count 390, MPV 9.5, Immature Gran % (Auto) 1.100 H, Neut % (Auto) 70.4 H, Lymph % (Auto) 16.0 L , [place] % (Auto) 11.0 H, Eos % (Auto) 1.1, Baso % (Auto) 0.4, Absolute Neuts (auto) 7.0, Absolute Lymphs (auto) 1.59, Nucleated RBC % 0, Sodium 134, Potassium 4.9, Chloride 104, Carbon Dioxide 17.3 L, Anion Gap 13, BUN 34 H, Creatinine 1.14, Estim Creat Clear Calc 76.31, Est GFR (MDRD) Non-Af 72, B UN/Creatinine Ratio 29.4 H, Glucose 59 L, Calcium 9.0 11/29/24 07:48: POC Glucose 79 11/29/24 11:28: POC Glucose 75 Micro: Microbiology 11/22/24 14:48 Blood Culture (Wb) - Left Hand Blood Culture - Final No growth in 5 days. 11/22/24 10:00 Blood Culture (Wb) - Anticubital Left Blood Culture - Final No growth in 5 days. 11/22/24 14:54 Blood Culture (Wb) - Right Hand Blood Culture - Final No growth in 5 days. 11/24/24 14:15 Fluid - Thoracentesis Fluid Gram Stain - Final 11/24/24 14:15 Fluid - Thoracentesis Fluid Body Fluid Culture - Final Culture exhibits no growth. 11/24/24 14:15 Fluid - Thoracentesis Fluid Anaerobic Culture - Preliminary No growth in 48 hours. 11/22/24 17:33 Wound - Ankle Gram Stain - Final 11/22/24 17:33 Wound - Ankle Wound Culture - Final Enterobacter cloacae complex Klebsiella oxytoca Enterococcus faecalis Staphylococcus aureus 11/22/24 19:01 Urine, Catheterized Urine Culture - Final Culture exhibits no growth. 11/22/24 10:00 Blood Culture (Wb) - Anticubital Right Blood Culture - Final Klebsiella oxytoca 11/22/24 22:44 Nasal Secretion MRSA (PCR) - Final 11/22/24 23:05 Mucosa - Nasopharyngeal Respiratory Panel (PCR) - Final 11/22/24 19:01 Urine Catheter - Mayers Legionella Antigen - Final 11/22/24 19:01 Urine Catheter - Mayers Streptococcus pneumoniae Antigen (M - Final Radiography Diagnostic Testing: Radiology Impression Brain CT 11/28/24 20:49 IMPRESSION: No acute intracranial abnormality. Stable appearing moderate chronic small- vessel ischemic changes with multiple small foci of chronic infarct in the bilateral cerebral and cerebellar hemispheres. Reading Location: [id number] Head/Neck CTA 11/28/24 21:00 IMPRESSION: 1. No acute large vessel intracranial arterial occlusion or high-grade stenosis. 2. 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 3. Moderate stenosis at the left cervical ICA origin due to mixed atheromatous plaque. 4. Moderate-advanced stenosis at the right vertebral artery origin, and along the distal V4 segment secondary to atherosclerotic plaque. Widely patent left vertebral artery. 5. Moderate right and small left pleural effusions seen in the upper thorax. 6. Enlarged heterogeneous multinodular thyroid gland. Reading Location: [id number] Lower Extremity CT 11/29/24 11:15 IMPRESSION: There is subcutaneous edema, most pronounced at the dorsal aspect of the midfoot with no visible organized or drainable collection. The differential includes cellulitis and venous stasis. Subcutaneous radiopaque densities are noted at the anterior aspect of the distal tibia, which may represent vascular clips. Reading [facility] Rhythm Strip Rhythm Strip: Sinus Tach Rate: 111 Ectopy: None Physical Exam Const alert and no apparent distress HEENT head/scalp atraumatic and moist oral mucous membranes Resp normal respiratory effort, no retractions, no use of accessory muscles and clear to auscultation bilaterally Cardio regular rate, regular rhythm, S1 normal heart sound and S2 normal heart sound GI normal to inspection, nondistended, normoactive bowel sounds, soft to palpation, non-tender and non-distended Extremity Extremity Narrative: Erythema bilaterally. Patient has ecchymosis on the dorsum of his left foot with tenderness to palpation on the plantar aspect and just edema throughout. Assessment & Plan Assessment/Plan (1) Severe sepsis: (2) Altered mental status: PLAN: Plan (1) Severe sepsis: PLAN: Plan Septic shock * POA. * Klebsiella bacteremia. Source ankle v pneumonia. * Completed 7 days of abx Pleural effusion * transudative 2/2 HFrEF * had diagnostic thoracentesis done on with removal of 1.15L of of fluid. Acute HFrEF: * proBNP was markedly elevated at >63076 * Monitor intake and output. Fluid restriction to 1500 cc daily. * has known EF of 30-35% from Echo on 09/19/2024 * now off lasix drip due to low BP BENOIT * resolved. Left lower extremity ecchymosis * On dorsum of his left foot also has tender to palpation on the plantar aspect of his foot. CT ordered did not show any drainable abscess. Did show edema. Will continue to monitor for now. Did review photos from last week where patient did not have this ecchymosis at that time. There was some evidence of some unroofing of the foot at this time. Will continue to monitor in case this is a worsening cellulitis. With him being off of antibiotics at this time. Delirium * Stroke team called but patient having no focal deficit at this time. Patient did not tolerate doing MRI. Feel patient high risk of complications to try to sedate him to have a MRI and given the the low yield of seeing a stroke we will discontinue the MRI. Chronic conditions: * Type 2 diabetes mellitus:on lantus 20 units daily. Insulin sliding scale. Accu-Cheks ACHS. Also on dapagliflozin. * CAD: On aspirin and Plavix as well as high intensity statin. Also on Repatha. Debility and weakness with failure to thrive. Patient states he passed out at home. Apparently seems like he was very weak and slid to the floor and did not hit his head. PT OT on board. Fall precautions. CODE STATUS: Full code Disposition: plan for SNF when medially ready. Charges/Coding Visit Charges Inpatient E&M: 08182 Subs Hosp L3 NIHSS NIHSS Nursing Documentation NIHSS Nursing Documentation: NIHSS: Ischemic Stroke/TIA Start: 11/28/24 20:59 Freq: Q4H Status: Complete Protocol: Activity Type Activity Date Activity User E-sign Co-sign Detail Recorded Client Recorded Date Recorded By Document 11/29/24 02:00 [facility] [place] [id number] 11/29/24 02:57 [facility] [place] 11/29/24 02:00 NIH Stroke Scale [NIHSS] A score of 0 is normal or asymptomatic . Total possible score is 42. Inpatient: RN or Physician to activate a stroke alert for onset of new stroke symptoms or with NIHSS increase >/= 3 points. Following change in neurological status, NIHSS will be performed per physician order or more frequently PRN. -1a. Level of Consciousness 1 - Not alert; Arousable by minor stimuli to obey, answer & respond -1b. LOC Questions 1 - Answers ONE question correctly -1c. LOC Commands 0 - Performs BOTH tasks correctly -2. Best Gaze 0 - Normal -3. Visual 0 - No visual loss -4. Facial Palsy 1 - Minor paralysis ( flattened nasolabial fold , asymmetry on smiling) -5a. Left Arm 0 - No drift; arm holds 90 ( or 45) degrees for full 10 seconds -5b. Right Arm 0 - No drift; arm holds 90 ( or 45) degrees for full 10 seconds -6a. Left Leg 1 - Drift; leg falls by the end of 5- seconds, but does not hit bed -6b. Right Leg 1 - Drift; leg falls by the end of 5- seconds, but does not hit bed -7. Limb Ataxia 0 - Absent -8. Sensory 0 - Normal; no sensory loss -9. Best Language 0 - No aphasia; normal -10. Dysarthria 0 - Normal -11. Extinction and Inattention 0 - No abnormality -Total 5 Query Text:A score of 0 is normal or asymptomatic. Total possible score is 42 . ED: Notify Physician for NIHSS increase by > / = 3 points. Inpatient: RN or Physician to activate a stroke alert for NIHSS increase of > / = 3 points. Coma Scale [Assess] -Eye Opening Spontaneous -Motor Obeys Commands -Verbal Confused [Total] -Coma Scale Total 14
[2024-11-29] MEDS: Senna Tablet 2 TABLET PO (20:30)
[2024-11-30] VITALS (7 sets, daily range): BP systolic 112–128; BP diastolic 76–82; PULSE 92–106; RESP 14–18; TEMP 36.1–37; O2SAT 91–100; BMI 27.7
[2024-11-30] MEDS: Polyethylene Glycol 3350 17 GM PACKET PO (06:10)
[2024-11-30 06:58] LABS: Hematocrit 40.5 % (40-54); Hemoglobin 13.4 g/dL (13.0-16.5); Immature Granulocytes Count 0.090 X10^3/uL (0.0-0.0); Mean Corp Hgb Conc 33.1 g/dL (32-36); Mean Corpuscular Volume 89.6 fL (80-94); Mean Platelet Vol. 9.3 fl (6.2-12.0); NRBC Flagged by Analyzer 0 % (0-5); Platelet Count 442 K/mm3 (150-450); RBC Distribution Width CV 15.1 % (11.6-14.6); RBC Distribution Width SD 48.7 fl (35.1-43.9); Red Blood Count 4.52 M/mm3 (4.6-6.2); White Blood Count 11.8 K/mm3 (4.4-11.0)
[2024-11-30 07:51] LABS: Anion Gap 12 (5-15); BUN 36 mg/dL (4-19); BUN/Creat Ratio 27.4 RATIO (10-20); Calcium,Total 9.2 mg/dL (7.6-11.0); Carbon Dioxide 22.3 mmol/L (21.0-32.0); Chloride 99 mmol/L (98-108); Estimated Creatinine Clearance 59.76 ml/min (50-250); Glucose 119 mg/dL (70-99); Potassium 5.0 mmol/L (3.3-5.1)
[2024-11-30] MEDS: Insulin Glargine-YFGN 100 UNIT/ML Pen 20 UNIT SC (08:38)
--- NOTE | 2024-11-30 08:42 | PCM.PN.HOSP ---
Reason for Visit Chief Complaint: Stroke alert Subjective Subjective Still with pain in LLE. Objective Data Objective Data Vital Signs: Vital Signs Temp Pulse Resp BP Pulse Ox O2 Del Method O2 Flow Rate 36.1 C L 102 H 18 121/77 H 91 Room Air 2 11/30/24 06:29 11/30/24 08:21 11/30/24 08:21 11/30/24 06:29 11/30/24 08:21 11/30/24 08:21 11/25/24 08:00 FiO2 25 11/23/24 08:00 Oxygen Flow Rate (L/min) 2 Oxygen Delivery Method Room Air Weight: 90.2 kg Body Mass Index (BMI) 27.7 Intake & Output: Intake and Output for Last 24 Hours 11/28/24 11/29/24 11/30/24 23:59 23:59 23:59 Intake Total 850 / 850 0 / 0 150 / 150 Output Total 1200 / 1200 400 / 400 Balance 850 / 850 -1200 / -1200 -250 / -250 Lab / Micro Data 11/30/24 06:47 11/30/24 06:47 Labs: Laboratory Results - last 24 hr 11/29/24 11:28: POC Glucose 75 11/29/24 17:22: POC Glucose 142 H 11/29/24 20:22: POC Glucose 168 H 11/30/24 06:22: POC Glucose 123 H 11/30/24 06:47: WBC 11.8 H, RBC 4.52 L, Hgb 13.4, Hct 40.5, MCV 89.6, MCH 29.6, MCHC 33.1, RDW Std Deviation 48.7 H, RDW Coeff of Maycol 15.1 H, Plt Count 442, MPV 9.3, Immature Gran % (Auto) 0.800, Neut % (Auto) 75.9 H, Lymph % (Auto) 14.0 L, [place] % (Auto) 8.1, Eos % (Auto) 1.0, Baso % (Auto) 0.2, Absolute Neuts (auto) 9.0 H, Absolute Lymphs (auto) 1.65, Nucleated RBC % 0, Sodium 133, Potassium 5.0, Chloride 99, Carbon Dioxide 22.3, Anion Gap 12, BUN 36 H, Creatinine 1.33 H, Estim Creat Clear Calc 59.76, Est GFR (MDRD) Non-Af 60, BUN/Creatinine Ratio 27.4 H, Glucose 119 H, Calcium 9.2 Micro: Microbiology 11/22/24 14:48 Blood Culture (Wb) - Left Hand Blood Culture - Final No growth in 5 days. 11/22/24 10:00 Blood Culture (Wb) - Anticubital Left Blood Culture - Final No growth in 5 days. 11/22/24 14:54 Blood Culture (Wb) - Right Hand Blood Culture - Final No growth in 5 days. 11/24/24 14:15 Fluid - Thoracentesis Fluid Gram Stain - Final 11/24/24 14:15 Fluid - Thoracentesis Fluid Body Fluid Culture - Final Culture exhibits no growth. 11/24/24 14:15 Fluid - Thoracentesis Fluid Anaerobic Culture - Preliminary No growth in 48 hours. 11/22/24 17:33 Wound - Ankle Gram Stain - Final 11/22/24 17:33 Wound - Ankle Wound Culture - Final Enterobacter cloacae complex Klebsiella oxytoca Enterococcus faecalis Staphylococcus aureus 11/22/24 19:01 Urine, Catheterized Urine Culture - Final Culture exhibits no growth. 11/22/24 10:00 Blood Culture (Wb) - Anticubital Right Blood Culture - Final Klebsiella oxytoca 11/22/24 22:44 Nasal Secretion MRSA (PCR) - Final 11/22/24 23:05 Mucosa - Nasopharyngeal Respiratory Panel (PCR) - Final 11/22/24 19:01 Urine Catheter - Mayers Legionella Antigen - Final 11/22/24 19:01 Urine Catheter - Mayers Streptococcus pneumoniae Antigen (M - Final Radiography Diagnostic Testing: Radiology Impression Lower Extremity CT 11/29/24 11:15 IMPRESSION: There is subcutaneous edema, most pronounced at the dorsal aspect of the midfoot with no visible organized or drainable collection. The differential includes cellulitis and venous stasis. Subcutaneous radiopaque densities are noted at the anterior aspect of the distal tibia, which may represent vascular clips. Reading Location: [facility] Rhythm Strip Rhythm Strip: Sinus Tach Rate: 111 Ectopy: None Physical Exam Const alert and no apparent distress HEENT head/scalp atraumatic and moist oral mucous membranes Resp normal respiratory effort and no retractions Extremity Extremity Narrative: Left foot is unwrapped and shows a very large ecchymosis on the dorsum of his left foot with more pronounced unroofing today. Left foot is overall swollen and exquisitely tender to palpation in the foot as well as into the ankle. Does have serous drainage from the venous stasis wounds on his right medial leg. Assessment & Plan Assessment/Plan (1) Severe sepsis: (2) Altered mental status: PLAN: Plan (1) Severe sepsis: PLAN: Plan Septic shock POA. Klebsiella bacteremia. Source ankle v pneumonia. Completed 7 days of abx Pleural effusion transudative 2/2 HFrEF had diagnostic thoracentesis done on with removal of 1.15L of of fluid. Acute HFrEF: proBNP was markedly elevated at >48890 Monitor intake and output. Fluid restriction to 1500 cc daily. has known EF of 30-35% from Echo on 09/19/2024 now off lasix drip due to low BP BENOIT resolved. Left lower extremity ecchymosis On dorsum of his left foot also has tender to palpation on the plantar aspect of his foot. CT ordered did not show any drainable abscess. Did show edema. Will continue to monitor for now. Did review photos from last week where patient did not have this ecchymosis at that time. There was some evidence of some unroofing of the foot at this time. Will continue to monitor in case this is a worsening cellulitis. With him being off of antibiotics at this time. Still very tender to palpation. Duplex on 11/22 was negative. ABIs 09/08/24: R 0.8, L 1.04. Will repeat as pain is very intense. Delirium Stroke team called but patient having no focal deficit at this time. Patient did not tolerate doing MRI. Feel patient high risk of complications to try to sedate him to have a MRI and given the the low yield of seeing a stroke we will discontinue the MRI. Chronic conditions: Type 2 diabetes mellitus:on lantus 20 units daily. Insulin sliding scale. Accu-Cheks ACHS. Also on dapagliflozin. CAD: On aspirin and Plavix as well as high intensity statin. Also on Repatha. Debility and weakness with failure to thrive. Patient states he passed out at home. Apparently seems like he was very weak and slid to the floor and did not hit his head. PT OT on board. Fall precautions. CODE STATUS: Full code Disposition: plan for SNF when medially ready. Discussed with the patient's daughter at bedside. Charges/Coding Visit Charges Inpatient E&M: 77717 Subs Hosp L2 NIHSS NIHSS Nursing Documentation NIHSS Nursing Documentation: NIHSS: Ischemic Stroke/TIA Start: 11/28/24 20:59 Freq: Q4H Status: Complete Protocol: Activity Type Activity Date Activity User E-sign Co-sign Detail Recorded Client Recorded Date Recorded By Document 11/29/24 02:00 [facility] [place] [id number] 11/29/24 02:57 [facility] 11/29/24 02:00 NIH Stroke Scale [NIHSS] A score of 0 is normal or asymptomatic . Total possible score is 42. Inpatient: RN or Physician to activate a stroke alert for onset of new stroke symptoms or with NIHSS increase >/= 3 points. Following change in neurological status, NIHSS will be performed per physician order or more frequently PRN. -1a. Level of Consciousness 1 - Not alert; Arousable by minor stimuli to obey, answer & respond -1b. LOC Questions 1 - Answers ONE question correctly -1c. LOC Commands 0 - Performs BOTH tasks correctly -2. Best Gaze 0 - Normal -3. Visual 0 - No visual loss -4. Facial Palsy 1 - Minor paralysis ( flattened nasolabial fold , asymmetry on smiling) -5a. Left Arm 0 - No drift; arm holds 90 ( or 45) degrees for full 10 seconds -5b. Right Arm 0 - No drift; arm holds 90 ( or 45) degrees for full 10 seconds -6a. Left Leg 1 - Drift; leg falls by the end of 5- seconds, but does not hit bed -6b. Right Leg 1 - Drift; leg falls by the end of 5- seconds, but does not hit bed -7. Limb Ataxia 0 - Absent -8. Sensory 0 - Normal; no sensory loss -9. Best Language 0 - No aphasia; normal -10. Dysarthria 0 - Normal -11. Extinction and Inattention 0 - No abnormality -Total 5 Query Text:A score of 0 is normal or asymptomatic. Total possible score is 42 . ED: Notify Physician for NIHSS increase by > / = 3 points. Inpatient: RN or Physician to activate a stroke alert for NIHSS increase of > / = 3 points. Coma Scale [Assess] -Eye Opening Spontaneous -Motor Obeys Commands -Verbal Confused [Total] -Coma Scale Total 14
[2024-11-30] MEDS: Senna Tablet 2 TABLET PO (08:46)
--- NOTE | 2024-11-30 10:12 | ART_ITS ---
Reason For Study Reason For Study: Left foot pain Procedure A bilateral lower extremity continuous wave Doppler with analog waveform analysis and ankle brachial indexes. Left Segmental Pressures Left brachial= 109mmHg. Left posterior tibial artery = 34mmHg. Left dorsalis pedis artery = 79mmHg. Left digit = 12 mmHg. The left dorsalis pedis waveforms are monophasic. The left posterior tibial artery waveforms are monophasic. Right Segmental Pressures Right brachial= 104mmHg. Right posterior tibial artery = 81mmHg. Right dorsalis pedis artery = 102mmHg. Right digit = 17 mmHg. The right dorsalis pedis waveforms are biphasic. The right posterior tibial artery waveforms are biphasic. Indices The right ankle brachial index by the dorsalis pedis is 0.94. The right ankle brachial index by the posterior tibial artery is 0.74. The right digital-brachial index is 0.16. The left ankle brachial index by the dorsalis pedis is 0.72. The left ankle brachial index by the posterior tibial artery is 0.31. The left digital-brachial index is 0.11. VL/Ankle Brachial Index Interpretation Summary Right SUZY 0.94, mild arterial insufficiency. Doppler/PVR waveforms of the right ankle mildly diminished at rest. Left SUZY 0.72, moderate arterial insufficiency. Doppler/PVR waveforms of the le ft ankle moderately diminished at rest. Ordering Physician: Saúl Dorado Referring Physician: Rebel Nuñez M.D. Performed By: Shyann Hernández RVT and Student
[2024-11-30] MEDS: MELATONIN 3 MG TABLET 6 MG PO (22:55)
[2024-12-01] VITALS (8 sets, daily range): BP systolic 96–131; BP diastolic 58–77; PULSE 90–107; RESP 16–18; TEMP 36.4–36.7; O2SAT 95–100; BMI 27.2
[2024-12-01 05:11] LABS: Hematocrit 39.4 % (40-54); Hemoglobin 12.8 g/dL (13.0-16.5); Immature Granulocytes Count 0.090 X10^3/uL (0.0-0.0); Mean Corp Hgb Conc 32.5 g/dL (32-36); Mean Corpuscular Volume 88.3 fL (80-94); Mean Platelet Vol. 9.5 fl (6.2-12.0); NRBC Flagged by Analyzer 0 % (0-5); Platelet Count 441 K/mm3 (150-450); RBC Distribution Width CV 15.1 % (11.6-14.6); RBC Distribution Width SD 48.0 fl (35.1-43.9); Red Blood Count 4.46 M/mm3 (4.6-6.2); White Blood Count 12.3 K/mm3 (4.4-11.0)
[2024-12-01 05:39] LABS: Anion Gap 13 (5-15); BUN 38 mg/dL (4-19); BUN/Creat Ratio 31.5 RATIO (10-20); Calcium,Total 8.8 mg/dL (7.6-11.0); Carbon Dioxide 21.2 mmol/L (21.0-32.0); Chloride 99 mmol/L (98-108); Estimated Creatinine Clearance 65.69 ml/min (50-250); Glucose 125 mg/dL (70-99); Potassium 4.5 mmol/L (3.3-5.1)
--- NOTE | 2024-12-01 08:33 | PN.HOSP_ITS ---
Reason for Visit Chief Complaint: Stroke alert Subjective Subjective Had issues with confusion and hallucinations last evening. Objective Data Objective Data Vital Signs: Vital Signs Temp Pulse Resp BP Pulse Ox O2 Del Method O2 Flow Rate 36.6 C 95 17 106/63 95 Nasal Cannula 2 12/01/24 03:57 12/01/24 07:18 12/01/24 07:18 12/01/24 03:57 12/01/24 03:57 12/01/24 08:03 12/01/24 03:57 FiO2 25 11/23/24 08:00 Oxygen Flow Rate (L/min) 2 Oxygen Delivery Method Nasal Cannula Weight: 88.6 kg Body Mass Index (BMI) 27.2 Intake & Output: Intake and Output for Last 24 Hours 11/29/24 11/30/24 12/01/24 23:59 23:59 23:59 Intake Total 0 / 0 150 / 150 Output Total 1200 / 1200 1100 / 2000 900 / 900 Balance -1200 / -1200 -950 / -1850 -900 / -900 Lab / Micro Data 12/01/24 04:40 12/01/24 04:40 Labs: Laboratory Results - last 24 hr 11/30/24 11:49: POC Glucose 175 H 11/30/24 17:32: POC Glucose 131 H 11/30/24 22:50: POC Glucose 171 H 12/01/24 04:40: WBC 12.3 H, RBC 4.46 L, Hgb 12.8 L, Hct 39.4 L, MCV 88.3, MCH 28.7, MCHC 32.5, RDW Std Deviation 48.0 H, RDW Coeff of Maycol 15.1 H, Plt Count 441, MPV 9.5, Immature Gran % (Auto) 0.700, Neut % (Auto) 77.0 H, Lymph % (Auto) 14.3 L, [place] % (Auto) 6.7, Eos % (Auto) 1.1, Baso % (Auto) 0.2, Absolute Neuts (auto) 9.5 H, Absolute Lymphs (auto) 1.76, Nucleated RBC % 0, Sodium 133, Potassium 4.5, Chloride 99, Carbon Dioxide 21.2, Anion Gap 13, BUN 38 H, C reatinine 1.21 H, Estim Creat Clear Calc 65.69, Est GFR (MDRD) Non-Af 67, B UN/Creatinine Ratio 31.5 H, Glucose 125 H, Calcium 8.8 Micro: Microbiology 11/22/24 14:48 Blood Culture (Wb) - Left Hand Blood Culture - Final No growth in 5 days. 11/22/24 10:00 Blood Culture (Wb) - Anticubital Left Blood Culture - Final No growth in 5 days. 11/22/24 14:54 Blood Culture (Wb) - Right Hand Blood Culture - Final No growth in 5 days. 11/24/24 14:15 Fluid - Thoracentesis Fluid Gram Stain - Final 11/24/24 14:15 Fluid - Thoracentesis Fluid Body Fluid Culture - Final Culture exhibits no growth. 11/24/24 14:15 Fluid - Thoracentesis Fluid Anaerobic Culture - Preliminary No growth in 48 hours. 11/22/24 17:33 Wound - Ankle Gram Stain - Final 11/22/24 17:33 Wound - Ankle Wound Culture - Final Enterobacter cloacae complex Klebsiella oxytoca Enterococcus faecalis Staphylococcus aureus 11/22/24 19:01 Urine, Catheterized Urine Culture - Final Culture exhibits no growth. 11/22/24 10:00 Blood Culture (Wb) - Anticubital Right Blood Culture - Final Klebsiella oxytoca 11/22/24 22:44 Nasal Secretion MRSA (PCR) - Final 11/22/24 23:05 Mucosa - Nasopharyngeal Respiratory Panel (PCR) - Final 11/22/24 19:01 Urine Catheter - Mayers Legionella Antigen - Final 11/22/24 19:01 Urine Catheter - Mayers Streptococcus pneumoniae Antigen (M - Final Rhythm Strip Rhythm Strip: Sinus Tach Rate: 111 Ectopy: None Physical Exam Const alert and no apparent distress Constitutional Narrative: Up in the chair. Afebrile. HEENT head/scalp atraumatic and moist oral mucous membranes Eyes Eyes Narrative: Glasses. No icterus Resp normal respiratory effort and no retractions Extremity Extremity Narrative: Still with erythema in the left lower extremity with venous stasis ulcers medially. Does have the unroofing hematoma on the dorsum of his right foot. And with swelling in the plantar aspect of his left foot. Pain overall is improved from the 27th. Assessment & Plan Assessment/Plan (1) Severe sepsis: (2) Altered mental status: PLAN: Plan (1) Severe sepsis: PLAN: Plan Septic shock * POA. * Klebsiella bacteremia. Source ankle v pneumonia. * Completed 7 days of abx Pleural effusion * transudative 2/2 HFrEF * had diagnostic thoracentesis done on with removal of 1.15L of of fluid. Acute HFrEF: * proBNP was markedly elevated at >43381 * Monitor intake and output. Fluid restriction to 1500 cc daily. * has known EF of 30-35% from Echo on 09/19/2024 * now off lasix drip due to low BP BENOIT * resolved. Left lower extremity ecchymosis * On dorsum of his left foot also has tender to palpation on the plantar aspect of his foot. CT ordered did not show any drainable abscess. Did show edema. Will continue to monitor for now. Did review photos from last week where patient did not have this ecchymosis at that time. There was some evidence of some unroofing of the foot at this time. Will continue to monitor in case this is a worsening cellulitis. With him being off of antibiotics at this time. * Still very tender to palpation. * Duplex on 11/22 was negative. * ABIs 09/08/24: R 0.8, L 1.04. Repeat preliminary was 0.94 on the right and 0.72 on the left. Formal result pending. * Today, it is overall feeling better but still just looks very red and swollen somata elect to restart antibiotics and to see if we see improvement of that. Delirium * Stroke team called but patient having no focal deficit at this time. Patient did not tolerate doing MRI. Feel patient high risk of complications to try to sedate him to have a MRI and given the the low yield of seeing a stroke we will discontinue the MRI. * Discussed with the patient's daughter that I am concerned that he has dementia. I told him I cannot diagnose him as dementia as a hospital setting is not the ideal setting to evaluate someone for dementia but I did recommend outpatient evaluation with a geriatric physician or neurology. Chronic conditions: * Type 2 diabetes mellitus:on lantus 20 units daily. Insulin sliding scale. Accu-Cheks ACHS. Also on dapagliflozin. * CAD: On aspirin and Plavix as well as high intensity statin. Also on Repatha. Debility and weakness with failure to thrive. Patient states he passed out at home. Apparently seems like he was very weak and slid to the floor and did not hit his head. PT OT on board. Fall precautions. CODE STATUS: Full code Disposition: plan for SNF when medially ready. Charges/Coding Visit Charges Inpatient E&M: 70472 Subs Hosp L2 NIHSS NIHSS Nursing Documentation NIHSS Nursing Documentation: NIHSS: Ischemic Stroke/TIA Start: 11/28/24 20:59 Freq: Q4H Status: Complete Protocol: Activity Type Activity Date Activity User E-sign Co-sign Detail Recorded Client Recorded Date Recorded By Document 11/29/24 02:00 [facility] [place] [id number] 11/29/24 02:57 [facility] [place] 11/29/24 02:00 NIH Stroke Scale [NIHSS] A score of 0 is normal or asymptomatic . Total possible score is 42. Inpatient: RN or Physician to activate a stroke alert for onset of new stroke symptoms or with NIHSS increase >/= 3 points. Following change in neurological status, NIHSS will be performed per physician order or more frequently PRN. -1a. Level of Consciousness 1 - Not alert; Arousable by minor stimuli to obey, answer & respond -1b. LOC Questions 1 - Answers ONE question correctly -1c. LOC Commands 0 - Performs BOTH tasks correctly -2. Best Gaze 0 - Normal -3. Visual 0 - No visual loss -4. Facial Palsy 1 - Minor paralysis ( flattened nasolabial fold , asymmetry on smiling) -5a. Left Arm 0 - No drift; arm holds 90 ( or 45) degrees for full 10 seconds -5b. Right Arm 0 - No drift; arm holds 90 ( or 45) degrees for full 10 seconds -6a. Left Leg 1 - Drift; leg falls by the end of 5- seconds, but does not hit bed -6b. Right Leg 1 - Drift; leg falls by the end of 5- seconds, but does not hit bed -7. Limb Ataxia 0 - Absent -8. Sensory 0 - Normal; no sensory loss -9. Best Language 0 - No aphasia; normal -10. Dysarthria 0 - Normal -11. Extinction and Inattention 0 - No abnormality -Total 5 Query Text:A score of 0 is normal or asymptomatic. Total possible score is 42 . ED: Notify Physician for NIHSS increase by > / = 3 points. Inpatient: RN or Physician to activate a stroke alert for NIHSS increase of > / = 3 points. Coma Scale [Assess] -Eye Opening Spontaneous -Motor Obeys Commands -Verbal Confused [Total] -Coma Scale Total 14
[2024-12-01] MEDS: Insulin Glargine-YFGN 100 UNIT/ML Pen 20 UNIT SC (09:57)
[2024-12-01] MEDS: Vancomycin HCl 2,000 MG in 0.9% Normal Saline (500mL Bag) 500 ML 250 MG IV (13:00)
--- NOTE | 2024-12-01 13:08 | PCM.RX.CS ---
Consult Antibiotic Management Pharmacy has been consulted to manage selected antibiotic: Vancomycin Type of Intervention Type of Consult: New start Suspected Infection Suspected Infection: Skin/Soft tissue Prior Doses of Antibiotics Prior Doses of Antibiotics Received/Current Regimen: Vancomycin 2000 mg IV x 1 given 12/01/24 @ 1300 Labs Labs: Sodium 133 mmol/L (133-145) 12/01/24 04:40 Potassium 4.5 mmol/L (3.3-5.1) 12/01/24 04:40 Chloride 99 mmol/L (98-108) 12/01/24 04:40 Carbon Dioxide 21.2 mmol/L (21.0-32.0) 12/01/24 04:40 Anion Gap 13 (5-15) 12/01/24 04:40 BUN 38 mg/dL (4-19) H 12/01/24 04:40 Creatinine 1.21 mg/dL (0.70-1.20) H 12/01/24 04:40 Est GFR (MDRD) Non-Af 67 (>60) 12/01/24 04:40 BUN/Creatinine Ratio 31.5 RATIO (10-20) H 12/01/24 04:40 Glucose 125 mg/dL (70-99) H 12/01/24 04:40 Vancomycin Trough 17.8 ug/mL (5.0-15.0) H 11/27/24 22:28 Random Vancomycin 17.5 ug/mL (0.0-15.0) H 11/26/24 09:40 Microbiology Microbiology: Microbiology 11/22/24 14:48 Blood Culture (Wb) - Left Hand Blood Culture - Final No growth in 5 days. 11/22/24 10:00 Blood Culture (Wb) - Anticubital Left Blood Culture - Final No growth in 5 days. 11/22/24 14:54 Blood Culture (Wb) - Right Hand Blood Culture - Final No growth in 5 days. 11/24/24 14:15 Fluid - Thoracentesis Fluid Gram Stain - Final 11/24/24 14:15 Fluid - Thoracentesis Fluid Body Fluid Culture - Final Culture exhibits no growth. 11/24/24 14:15 Fluid - Thoracentesis Fluid Anaerobic Culture - Preliminary No growth in 48 hours. 11/22/24 17:33 Wound - Ankle Gram Stain - Final 11/22/24 17:33 Wound - Ankle Wound Culture - Final Enterobacter cloacae complex Klebsiella oxytoca Enterococcus faecalis Staphylococcus aureus 11/22/24 19:01 Urine, Catheterized Urine Culture - Final Culture exhibits no growth. 11/22/24 10:00 Blood Culture (Wb) - Anticubital Right Blood Culture - Final Klebsiella oxytoca 11/22/24 22:44 Nasal Secretion MRSA (PCR) - Final 11/22/24 23:05 Mucosa - Nasopharyngeal Respiratory Panel (PCR) - Final 11/22/24 19:01 Urine Catheter - Mayers Legionella Antigen - Final 11/22/24 19:01 Urine Catheter - Mayers Streptococcus pneumoniae Antigen (M - Final Dosing Weight Weight used for dosin kg Estimated Creatinine Clearance Estimated Creatinine Clearance: ~ 66 Goal Trough Goal Trough: 15-20 mcg/mL Pharmacy Plan for Drug Dosing Pharmacy Plan for Drug Dosing: Vancomycin 2000 mg IV x 1 followed by 1000 mg Q12H Pharmacy Service will continue to monitor and adjust dosing as required. Follow-Up Labs Follow-Up Labs: Trough: Vancomycin Date/Time Labs Ordered Labs to be done on [date and time ordered]: 12/03/24 @ 0030
--- NOTE | 2024-12-01 14:40 | CASEMGMT ---
Discharge Planning Updates sent to [facility]. Tiffany Perdomo DC Planning Asst.
[2024-12-01] MEDS: Cefepime HCl 1 GM in 0.9% Normal Saline (50mL MB+) 50 ML IV ×2 (15:58→22:54)
[2024-12-01] MEDS: MELATONIN 3 MG TABLET 6 MG PO (22:54)
[2024-12-02] VITALS (7 sets, daily range): BP systolic 100–117; BP diastolic 64–73; PULSE 74–109; RESP 16–20; TEMP 36.4–36.6; O2SAT 94–98; BMI 26.6
[2024-12-02] MEDS: Vancomycin HCl 1,000 MG in 0.9% Normal Saline (250mL Bag) 250 ML 250 MG IV ×2 (02:25→13:24)
[2024-12-02] MEDS: Cefepime HCl 1 GM in 0.9% Normal Saline (50mL MB+) 50 ML IV ×3 (06:19→21:49)
--- NOTE | 2024-12-02 08:28 | PN.HOSP_ITS ---
Reason for Visit Chief Complaint: Stroke alert Subjective Subjective Unremarkable night. Overall feeling better. Objective Data Objective Data Vital Signs: Vital Signs Temp Pulse Resp BP Pulse Ox O2 Del Method O2 Flow Rate 36.4 C L 93 16 101/66 98 Nasal Cannula 2 12/02/24 06:11 12/02/24 07:06 12/02/24 07:06 12/02/24 06:11 12/02/24 06:11 12/02/24 08:17 12/02/24 06:11 FiO2 25 11/23/24 08:00 Oxygen Flow Rate (L/min) 2 Oxygen Delivery Method Nasal Cannula Weight: 86.7 kg Body Mass Index (BMI) 26.6 Intake & Output: Intake and Output for Last 24 Hours 11/30/24 12/01/24 12/02/24 23:59 23:59 23:59 Intake Total 150 / 150 1840 / 1840 320 / 320 Output Total 1100 / 2000 2200 / 2600 1000 / 1000 Balance -950 / -1850 -360 / -760 -680 / -680 Lab / Micro Data 12/02/24 09:20 12/02/24 09:20 Labs: Laboratory Results - last 24 hr 12/01/24 08:30: POC Glucose 106 12/01/24 11:52: POC Glucose 147 H 12/01/24 16:52: POC Glucose 160 H 12/01/24 22:49: POC Glucose 169 H Micro: Microbiology 11/22/24 14:48 Blood Culture (Wb) - Left Hand Blood Culture - Final No growth in 5 days. 11/22/24 10:00 Blood Culture (Wb) - Anticubital Left Blood Culture - Final No growth in 5 days. 11/22/24 14:54 Blood Culture (Wb) - Right Hand Blood Culture - Final No growth in 5 days. 11/24/24 14:15 Fluid - Thoracentesis Fluid Gram Stain - Final 11/24/24 14:15 Fluid - Thoracentesis Fluid Body Fluid Culture - Final Culture exhibits no growth. 11/24/24 14:15 Fluid - Thoracentesis Fluid Anaerobic Culture - Preliminary No growth in 48 hours. 11/22/24 17:33 Wound - Ankle Gram Stain - Final 11/22/24 17:33 Wound - Ankle Wound Culture - Final Enterobacter cloacae complex Klebsiella oxytoca Enterococcus faecalis Staphylococcus aureus 11/22/24 19:01 Urine, Catheterized Urine Culture - Final Culture exhibits no growth. 11/22/24 10:00 Blood Culture (Wb) - Anticubital Right Blood Culture - Final Klebsiella oxytoca 11/22/24 22:44 Nasal Secretion MRSA (PCR) - Final 11/22/24 23:05 Mucosa - Nasopharyngeal Respiratory Panel (PCR) - Final 11/22/24 19:01 Urine Catheter - Mayers Legionella Antigen - Final 11/22/24 19:01 Urine Catheter - Mayers Streptococcus pneumoniae Antigen (M - Final Radiography Diagnostic Testing: Radiology Impression Ankle Brachial Index 11/30/24 10:12 Interpretation Summary Right SUZY 0.94, mild arterial insufficiency. Doppler/PVR waveforms of the right ankle mildly diminished at rest. Left SUZY 0.72, moderate arterial insufficiency. Doppler/PVR waveforms of the left ankle moderately diminished at rest. Ordering Physician: Saúl Dorado Referring Physician: Rebel Nuñez M.D. Performed By: Shyann Hernández RVT and Student Rhythm Strip Rhythm Strip: Sinus Tach Rate: 111 Ectopy: None Physical Exam Const Constitutional Narrative: Up in bed. Less confused this morning. Able to hold his leg up on his own without pain. Was seen with the wound nurse and she was on wrapping him and he was experiencing less pain when she was manipulating his foot as to previous. HEENT head/scalp atraumatic and moist oral mucous membranes HEENT Narrative: Glasses Resp normal respiratory effort and no retractions Extremity Extremity Narrative: Still with wounds on the dorsum of his foot with the hematoma. Ongoing unroofing of that hematoma the dorsum of his foot. Overall the swelling in his foot appears to be improved as there is wrinkling of the skin. Improved erythema of the foot. Less tender to palpation on the plantar aspect of his left foot. Assessment & Plan Assessment/Plan (1) Severe sepsis: (2) Altered mental status: PLAN: Plan (1) Severe sepsis: PLAN: Plan Septic shock * POA. * Klebsiella bacteremia. Source ankle v pneumonia. * Completed 7 days of abx Pleural effusion * transudative 2/2 HFrEF * had diagnostic thoracentesis done on with removal of 1.15L of of fluid. Acute HFrEF: * proBNP was markedly elevated at >99837 * Monitor intake and output. Fluid restriction to 1500 cc daily. * has known EF of 30-35% from Echo on 09/19/2024 * now off lasix drip due to low BP BENOIT * resolved. Left lower extremity ecchymosis * On dorsum of his left foot also has tender to palpation on the plantar aspect of his foot. CT ordered did not show any drainable abscess. Did show edema. Will continue to monitor for now. Did review photos from last week where patient did not have this ecchymosis at that time. There was some evidence of some unroofing of the foot at this time. Will continue to monitor in case this is a worsening cellulitis. With him being off of antibiotics at this time. * Still very tender to palpation. * Duplex on 11/22 was negative. * ABIs 09/08/24: R 0.8, L 1.04. Repeat preliminary was 0.94 on the right and 0.72 on the left. Formal result pending. * Today, swelling and erythema have improved with the antibiotics that were started on the . Discussed with wound nurse who has been caring for him throughout the week and agrees that his foot does appear better. Delirium * Overall improved. * Discussed with the patient's daughter that I am concerned that he has dementia. I told him I cannot diagnose him as dementia as a hospital setting is not the ideal setting to evaluate someone for dementia but I did recommend outpatient evaluation with a geriatric physician or neurology. Chronic conditions: * Type 2 diabetes mellitus:on lantus 20 units daily. Insulin sliding scale. Accu-Cheks ACHS. Also on dapagliflozin. * CAD: On aspirin and Plavix as well as high intensity statin. Also on Repatha. Debility and weakness with failure to thrive. Patient states he passed out at home. Apparently seems like he was very weak and slid to the floor and did not hit his head. PT OT on board. Fall precautions. CODE STATUS: Full code Disposition: plan for SNF when medially ready. Charges/Coding Visit Charges Inpatient E&M: 28077 Subs Hosp L2 NIHSS NIHSS Nursing Documentation NIHSS Nursing Documentation: NIHSS: Ischemic Stroke/TIA Start: 11/28/24 20:59 Freq: Q4H Status: Complete Protocol: Activity Type Activity Date Activity User E-sign Co-sign Detail Recorded Client Recorded Date Recorded By Document 11/29/24 02:00 [facility] [id number] 11/29/24 02:57 [facility] [place]/29/24 02:00 NIH Stroke Scale [NIHSS] A score of 0 is normal or asymptomatic . Total possible score is 42. Inpatient: RN or Physician to activate a stroke alert for onset of new stroke symptoms or with NIHSS increase >/= 3 points. Following change in neurological status, NIHSS will be performed per physician order or more frequently PRN. -1a. Level of Consciousness 1 - Not alert; Arousable by minor stimuli to obey, answer & respond -1b. LOC Questions 1 - Answers ONE question correctly -1c. LOC Commands 0 - Performs BOTH tasks correctly -2. Best Gaze 0 - Normal -3. Visual 0 - No visual loss -4. Facial Palsy 1 - Minor paralysis ( flattened nasolabial fold , asymmetry on smiling) -5a. Left Arm 0 - No drift; arm holds 90 ( or 45) degrees for full 10 seconds -5b. Right Arm 0 - No drift; arm holds 90 ( or 45) degrees for full 10 seconds -6a. Left Leg 1 - Drift; leg falls by the end of 5- seconds, but does not hit bed -6b. Right Leg 1 - Drift; leg falls by the end of 5- seconds, but does not hit bed -7. Limb Ataxia 0 - Absent -8. Sensory 0 - Normal; no sensory loss -9. Best Language 0 - No aphasia; normal -10. Dysarthria 0 - Normal -11. Extinction and Inattention 0 - No abnormality -Total 5 Query Text:A score of 0 is normal or asymptomatic. Total possible score is 42 . ED: Notify Physician for NIHSS increase by > / = 3 points. Inpatient: RN or Physician to activate a stroke alert for NIHSS increase of > / = 3 points. Coma Scale [Assess] -Eye Opening Spontaneous -Motor Obeys Commands -Verbal Confused [Total] -Coma Scale Total 14
[2024-12-02] MEDS: Insulin Glargine-YFGN 100 UNIT/ML Pen 20 UNIT SC (08:58)
--- NOTE | 2024-12-02 09:20 | CASEMGMT ---
Discharge Planning [facility] notified that pt may discharge over the weekend. Green Sheet and transport form completed and placed in chart. VICKI CM to complete Passr. Tiffany Perdomo DC Planning Asst.
[2024-12-02 10:06] LABS: Hematocrit 42.2 % (40-54); Hemoglobin 13.6 g/dL (13.0-16.5); Immature Granulocytes Count 0.090 X10^3/uL (0.0-0.0); Mean Corp Hgb Conc 32.2 g/dL (32-36); Mean Corpuscular Volume 90.6 fL (80-94); Mean Platelet Vol. 9.4 fl (6.2-12.0); NRBC Flagged by Analyzer 0 % (0-5); Platelet Count 481 K/mm3 (150-450); RBC Distribution Width CV 15.5 % (11.6-14.6); RBC Distribution Width SD 50.1 fl (35.1-43.9); Red Blood Count 4.66 M/mm3 (4.6-6.2); White Blood Count 14.8 K/mm3 (4.4-11.0)
--- NOTE | 2024-12-02 10:15 | PCM.PN.ID ---
Physical Exam Narrative Feeling ok today, pain improved, no fever, no n/v/d. Const alert and no apparent distress General Appearance: cooperative Resp normal air movement and clear to auscultation bilaterally Cardio regular rate and regular rhythm GI soft to palpation, non-tender and non-distended Skin Skin Narrative: BLE less edema, still red, mild tenderness ID ID: Route of nutrition/ use of supplements: [] Nutritional Intake: [] IV Site: [] Mayers Catheter: [] Assessment & Plan Assessment/Plan (1) Severe sepsis: PLAN: For BLE cellulitis, back on vanc/cefepime. L ankle wound cx with enterobacter, klebs, e faecalis, and MSSA. Redness improved today, d.w primary team Will follow (2) Bacteremia due to Gram-negative bacteria:
--- NOTE | 2024-12-02 10:26 | CASEMGMT ---
VICKI CM in to patient's room to discuss discharge planing, daughter at bedside. Patient more alert and able participate in conversation. RN CM updated daughter that we have precert for patient to go to [facility] when medically ready. Daughter voiced appreciation and confirmed that plan is for patient to go to [facility] short term for skilled care. VICKI RIVERA informed patient and daughter the CM team will notify when patient is discharged and transport arranged. Patient and daughter had no further questions or concerns. PASRR completed, green sheet on chart should patient discharge over the weekend.
[2024-12-02 11:24] LABS: Anion Gap 12 (5-15); BUN 35 mg/dL (4-19); BUN/Creat Ratio 29.0 RATIO (10-20); Calcium,Total 8.9 mg/dL (7.6-11.0); Carbon Dioxide 25.5 mmol/L (21.0-32.0); Chloride 97 mmol/L (98-108); Estimated Creatinine Clearance 66.24 ml/min (50-250); Glucose 116 mg/dL (70-99); Potassium 4.5 mmol/L (3.3-5.1)
--- NOTE | 2024-12-02 12:10 | WOUNDNOTE ---
wound photo: left dorsal foot
--- NOTE | 2024-12-02 12:11 | WOUNDNOTE ---
wound photo: left medial lower leg
--- NOTE | 2024-12-02 12:11 | WOUNDNOTE ---
wound photo: right dent
[2024-12-02] MEDS: 0.9% Saline Lock 10 ML Syringe IV (21:49)
[2024-12-02] MEDS: MELATONIN 3 MG TABLET 6 MG PO (21:55)
[2024-12-03] VITALS (9 sets, daily range): BP systolic 91–118; BP diastolic 65–78; PULSE 90–102; RESP 16–18; TEMP 36.3–36.8; O2SAT 94–99; BMI 27.7
[2024-12-03 01:50] LABS: Vancomycin, Trough Level 23.4 ug/mL (5.0-15.0)
--- NOTE | 2024-12-03 01:56 | PHA.PHARE_ITS ---
Consult Antibiotic Management Pharmacy has been consulted to manage selected antibiotic: Vancomycin Type of Intervention Type of Consult: Follow-up Labs Labs: Sodium 134 mmol/L (133-145) 12/02/24 09:20 Potassium 4.5 mmol/L (3.3-5.1) 12/02/24 09:20 Chloride 97 mmol/L (98-108) L 12/02/24 09:20 Carbon Dioxide 25.5 mmol/L (21.0-32.0) 12/02/24 09:20 Anion Gap 12 (5-15) 12/02/24 09:20 BUN 35 mg/dL (4-19) H 12/02/24 09:20 Creatinine 1.20 mg/dL (0.70-1.20) 12/02/24 09:20 Est GFR (MDRD) Non-Af 68 (>60) 12/02/24 09:20 BUN/Creatinine Ratio 29.0 RATIO (10-20) H 12/02/24 09:20 Glucose 116 mg/dL (70-99) H 12/02/24 09:20 Vancomycin Trough 23.4 ug/mL (5.0-15.0) H 12/03/24 00:47 Random Vancomycin 17.5 ug/mL (0.0-15.0) H 11/26/24 09:40 Microbiology Microbiology: Microbiology 11/24/24 14:15 Fluid - Thoracentesis Fluid Gram Stain - Final 11/24/24 14:15 Fluid - Thoracentesis Fluid Body Fluid Culture - Final Culture exhibits no growth. 11/24/24 14:15 Fluid - Thoracentesis Fluid Anaerobic Culture - Final No anaerobic bacteria isolated. 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 11/22/24 10:00 Blood Culture (Wb) - Anticubital Left Blood Culture - Final No growth in 5 days. 11/22/24 14:54 Blood Culture (Wb) - Right Hand Blood Culture - Final No growth in 5 days. 11/22/24 17:33 Wound - Ankle Gram Stain - Final 11/22/24 17:33 Wound - Ankle Wound Culture - Final Enterobacter cloacae complex Klebsiella oxytoca Enterococcus faecalis Staphylococcus aureus 11/22/24 19:01 Urine, Catheterized Urine Culture - Final Culture exhibits no growth. 11/22/24 10:00 Blood Culture (Wb) - Anticubital Right Blood Culture - Final Klebsiella oxytoca 11/22/24 22:44 Nasal Secretion MRSA (PCR) - Final 11/22/24 23:05 Mucosa - Nasopharyngeal Respiratory Panel (PCR) - Final 11/22/24 19:01 Urine Catheter - Mayers Legionella Antigen - Final 11/22/24 19:01 Urine Catheter - Mayers Streptococcus pneumoniae Antigen (M - Final Dosing Weight Weight used for dosin kg Estimated Creatinine Clearance Estimated Creatinine Clearance: 66 Goal Trough Goal Trough: 15-20 mcg/mL Pharmacy Plan for Drug Dosing Pharmacy Plan for Drug Dosing: Vancomycin trough level of 23.4, drawn 11.5hrs post-dose, was above the target range of 15-20. Will suspend current dosing, and will draw a random vanco level in 12 hours to determine further orders. Pharmacy Service will continue to monitor and adjust dosing as required. Follow-Up Labs Follow-Up Labs: Trough: Vancomycin (random) Date/Time Labs Ordered Labs to be done on [date and time ordered]: 12/03/24 @1300 (random)
[2024-12-03 05:54] LABS: Hematocrit 41.0 % (40-54); Hemoglobin 13.4 g/dL (13.0-16.5); Immature Granulocytes Count 0.070 X10^3/uL (0.0-0.0); Mean Corp Hgb Conc 32.7 g/dL (32-36); Mean Corpuscular Volume 89.7 fL (80-94); Mean Platelet Vol. 9.2 fl (6.2-12.0); NRBC Flagged by Analyzer 0 % (0-5); Platelet Count 424 K/mm3 (150-450); RBC Distribution Width CV 15.4 % (11.6-14.6); RBC Distribution Width SD 49.1 fl (35.1-43.9); Red Blood Count 4.57 M/mm3 (4.6-6.2); White Blood Count 12.3 K/mm3 (4.4-11.0)
[2024-12-03] MEDS: Cefepime HCl 1 GM in 0.9% Normal Saline (50mL MB+) 50 ML IV ×3 (06:08→22:10)
[2024-12-03 06:55] LABS: Anion Gap 13 (5-15); BUN 37 mg/dL (4-19); BUN/Creat Ratio 31.6 RATIO (10-20); Calcium,Total 8.8 mg/dL (7.6-11.0); Carbon Dioxide 23.6 mmol/L (21.0-32.0); Chloride 95 mmol/L (98-108); Estimated Creatinine Clearance 67.93 ml/min (50-250); Glucose 102 mg/dL (70-99); Potassium 4.4 mmol/L (3.3-5.1)
[2024-12-03] MEDS: 0.9% Saline Lock 10 ML Syringe IV (08:25)
[2024-12-03] MEDS: Insulin Glargine-YFGN 100 UNIT/ML Pen 20 UNIT SC (09:09)
--- NOTE | 2024-12-03 09:45 | PN.HOSP_ITS ---
Reason for Visit Chief Complaint: Stroke alert Subjective Subjective Still with pain in his leg. Daughter states that he overall looks better. Objective Data Objective Data Vital Signs: Vital Signs Temp Pulse Resp BP Pulse Ox O2 Del Method O2 Flow Rate 36.8 C 96 18 118/78 96 Room Air 2 12/03/24 08:20 12/03/24 08:20 12/03/24 08:20 12/03/24 08:20 12/03/24 08:20 12/03/24 08:20 12/02/24 06:11 FiO2 11/23/24 08:00 Oxygen Flow Rate (L/min) 2 Oxygen Delivery Method Room Air Weight: 90.1 kg Body Mass Index (BMI) 27.7 Intake & Output: Intake and Output for Last 24 Hours 12/01/24 12/02/24 12/03/24 23:59 23:59 23:59 Intake Total 1840 / 1840 990 / 990 50 / 50 Output Total 2200 / 2600 1000 / 1000 700 / 700 Balance -360 / -760 -10 / -10 -650 / -650 Lab / Micro Data 12/03/24 05:43 12/03/24 05:43 Labs: Laboratory Results - last 24 hr 12/02/24 09:20: WBC 14.8 H, RBC 4.66, Hgb 13.6, Hct 42.2, MCV 90.6, MCH 29.2, MCHC 32.2, RDW Std Deviation 50.1 H, RDW Coeff of Maycol 15.5 H, Plt Count 481 H, MPV 9.4, Immature Gran % (Auto) 0.600, Neut % (Auto) 79.5 H, Lymph % (Auto) 12.6 L, [place] % (Auto) 5.3, Eos % (Auto) 1.8, Baso % (Auto) 0.2, Absolute Neuts (auto) 11.8 H, Absolute Lymphs (auto) 1.87, Nucleated RBC % 0, Sodium 134, Potassium 4.5, Chloride 97 L, Carbon Dioxide 25.5, Anion Gap 12, BUN 35 H, Creatinine 1.20, Estim Creat Clear Calc 66.24, Est GFR (MDRD) Non-Af 68, BUN/Creatinine Ratio 29.0 H, Glucose 116 H, Calcium 8.9 12/02/24 12:07: POC Glucose 184 H 12/02/24 16:32: POC Glucose 148 H 12/02/24 21:54: POC Glucose 187 H 12/03/24 00:47: Vancomycin Trough 23.4 H 12/03/24 05:43: WBC 12.3 H, RBC 4.57 L, Hgb 13.4, Hct 41.0, MCV 89.7, MCH 29.3, MCHC 32.7, RDW Std Deviation 49.1 H, RDW Coeff of Maycol 15.4 H, Plt Count 424, MPV 9.2, Immature Gran % (Auto) 0.600, Neut % (Auto) 78.3 H, Lymph % (Auto) 13.5 L, [place] % (Auto) 5.8, Eos % (Auto) 1.5, Baso % (Auto) 0.3, Absolute Neuts (auto) 9.7 H, Absolute Lymphs (auto) 1.66, Nucleated RBC % 0, Sodium 132 L, Potassium 4.4, Chloride 95 L, Carbon Dioxide 23.6, Anion Gap 13, BUN 37 H, Creatinine 1.17, Estim Creat Clear Calc 67.93, Est GFR (MDRD) Non-Af 70, BUN/Creatinine Ratio 31.6 H, Glucose 102 H, Calcium 8.8 12/03/24 06:13: POC Glucose 109 H Micro: Microbiology 11/24/24 14:15 Fluid - Thoracentesis Fluid Gram Stain - Final 11/24/24 14:15 Fluid - Thoracentesis Fluid Body Fluid Culture - Final Culture exhibits no growth. 11/24/24 14:15 Fluid - Thoracentesis Fluid Anaerobic Culture - Final No anaerobic bacteria isolated. 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 11/22/24 10:00 Blood Culture (Wb) - Anticubital Left Blood Culture - Final No growth in 5 days. 11/22/24 14:54 Blood Culture (Wb) - Right Hand Blood Culture - Final No growth in 5 days. 11/22/24 17:33 Wound - Ankle Gram Stain - Final 11/22/24 17:33 Wound - Ankle Wound Culture - Final Enterobacter cloacae complex Klebsiella oxytoca Enterococcus faecalis Staphylococcus aureus 11/22/24 19:01 Urine, Catheterized Urine Culture - Final Culture exhibits no growth. 11/22/24 10:00 Blood Culture (Wb) - Anticubital Right Blood Culture - Final Klebsiella oxytoca 11/22/24 22:44 Nasal Secretion MRSA (PCR) - Final 11/22/24 23:05 Mucosa - Nasopharyngeal Respiratory Panel (PCR) - Final 11/22/24 19:01 Urine Catheter - Mayers Legionella Antigen - Final 11/22/24 19:01 Urine Catheter - Mayers Streptococcus pneumoniae Antigen (M - Final Rhythm Strip Rhythm Strip: Sinus Tach Rate: 111 Ectopy: None Physical Exam Const alert and no apparent distress Constitutional Narrative: No acute stress. Afebrile. Comfortable. Extremity Extremity Narrative: Slightly decreased erythema of his right medial foot and ankle. Still ongoing unroofing of the ecchymosis on the dorsum of his right foot. Tender to palpation overall. The dressing was taken down by myself and then redressed. Psych affect normal Assessment & Plan Assessment/Plan (1) Severe sepsis: (2) Altered mental status: PLAN: Plan (1) Severe sepsis: PLAN: Plan Septic shock * POA. * Klebsiella bacteremia. Source ankle v pneumonia. * Completed 7 days of abx but restarted back on antibiotics for concern for his ongoing infection of his left lower extremity. Pleural effusion * transudative 2/2 HFrEF * had diagnostic thoracentesis done on with removal of 1.15L of of fluid. Acute HFrEF: * proBNP was markedly elevated at >80390 * Monitor intake and output. Fluid restriction to 1500 cc daily. * has known EF of 30-35% from Echo on 09/19/2024 * now off lasix drip due to low BP BENOIT * resolved. Left lower extremity ecchymosis * On dorsum of his left foot also has tender to palpation on the plantar aspect of his foot. CT ordered did not show any drainable abscess. Did show edema. Will continue to monitor for now. Did review photos from last week where patient did not have this ecchymosis at that time. There was some evidence of some unroofing of the foot at this time. Will continue to monitor in case this is a worsening cellulitis. With him being off of antibiotics at this time. * Still very tender to palpation. * Duplex on 11/22 was negative. * ABIs 09/08/24: R 0.8, L 1.04. Repeat preliminary was 0.94 on the right and 0.72 on the left. Follow-up with vascular surgery as outpatient. * Today, swelling and erythema have improved with the antibiotics that were started on the . Discussed with wound nurse who has been caring for him throughout the week and agrees that his foot does appear better. Delirium * Overall improved. * Discussed with the patient's daughter that I am concerned that he has dementia. I told him I cannot diagnose him as dementia as a hospital setting is not the ideal setting to evaluate someone for dementia but I did recommend outpatient evaluation with a geriatric physician or neurology. Chronic conditions: * Type 2 diabetes mellitus:on lantus 20 units daily. Insulin sliding scale. Accu-Cheks ACHS. Also on dapagliflozin. * CAD: On aspirin and Plavix as well as high intensity statin. Also on Repatha. Debility and weakness with failure to thrive. Patient states he passed out at home. Apparently seems like he was very weak and slid to the floor and did not hit his head. PT OT on board. Fall precautions. CODE STATUS: Full code Disposition: plan for SNF when medially ready. Discussed with the patient's children at bedside. Greater than 35 minutes of which greater than 50 send time was by me the patient examining him at bedside. Charges/Coding Visit Charges Inpatient E&M: 67438 Subs Hosp L2 NIHSS NIHSS Nursing Documentation NIHSS Nursing Documentation: NIHSS: Ischemic Stroke/TIA Start: 11/28/24 20:59 Freq: Q4H Status: Complete Protocol: Activity Type Activity Date Activity User E-sign Co-sign Detail Recorded Client Recorded Date Recorded By Document 11/29/24 02:00 [facility] [place] [id number] 11/29/24 02:57 [facility] [place] 11/29/24 02:00 NIH Stroke Scale [NIHSS] A score of 0 is normal or asymptomatic . Total possible score is 42. Inpatient: RN or Physician to activate a stroke alert for onset of new stroke symptoms or with NIHSS increase >/= 3 points. Following change in neurological status, NIHSS will be performed per physician order or more frequently PRN. -1a. Level of Consciousness 1 - Not alert; Arousable by minor stimuli to obey, answer & respond -1b. LOC Questions 1 - Answers ONE question correctly -1c. LOC Commands 0 - Performs BOTH tasks correctly -2. Best Gaze 0 - Normal -3. Visual 0 - No visual loss -4. Facial Palsy 1 - Minor paralysis ( flattened nasolabial fold , asymmetry on smiling) -5a. Left Arm 0 - No drift; arm holds 90 ( or 45) degrees for full 10 seconds -5b. Right Arm 0 - No drift; arm holds 90 ( or 45) degrees for full 10 seconds -6a. Left Leg 1 - Drift; leg falls by the end of 5- seconds, but does not hit bed -6b. Right Leg 1 - Drift; leg falls by the end of 5- seconds, but does not hit bed -7. Limb Ataxia 0 - Absent -8. Sensory 0 - Normal; no sensory loss -9. Best Language 0 - No aphasia; normal -10. Dysarthria 0 - Normal -11. Extinction and Inattention 0 - No abnormality -Total 5 Query Text:A score of 0 is normal or asymptomatic. Total possible score is 42 . ED: Notify Physician for NIHSS increase by > / = 3 points. Inpatient: RN or Physician to activate a stroke alert for NIHSS increase of > / = 3 points. Coma Scale [Assess] -Eye Opening Spontaneous -Motor Obeys Commands -Verbal Confused [Total] -Coma Scale Total 14
[2024-12-03 13:52] LABS: Vancomycin, Random Level 16.5 ug/mL (0.0-15.0)
--- NOTE | 2024-12-03 14:09 | PCM.RX.CS ---
Consult Antibiotic Management Pharmacy has been consulted to manage selected antibiotic: Vancomycin Type of Intervention Type of Consult: Follow-up Suspected Infection Suspected Infection: Skin/Soft tissue Prior Doses of Antibiotics Prior Doses of Antibiotics Received/Current Regimen: Vancomycin 1000 mg last given 12/02/24 @ 1324 Labs Labs: Sodium 132 mmol/L (133-145) L 12/03/24 05:43 Potassium 4.4 mmol/L (3.3-5.1) 12/03/24 05:43 Chloride 95 mmol/L (98-108) L 12/03/24 05:43 Carbon Dioxide 23.6 mmol/L (21.0-32.0) 12/03/24 05:43 Anion Gap 13 (5-15) 12/03/24 05:43 BUN 37 mg/dL (4-19) H 12/03/24 05:43 Creatinine 1.17 mg/dL (0.70-1.20) 12/03/24 05:43 Est GFR (MDRD) Non-Af 70 (>60) 12/03/24 05:43 BUN/Creatinine Ratio 31.6 RATIO (10-20) H 12/03/24 05:43 Glucose 102 mg/dL (70-99) H 12/03/24 05:43 Vancomycin Trough 23.4 ug/mL (5.0-15.0) H 12/03/24 00:47 Random Vancomycin 16.5 ug/mL (0.0-15.0) H 12/03/24 13:00 Microbiology Microbiology: Microbiology 12/01/24 13:20 Wound - No Site/Description Given Gram Stain - Final 12/01/24 13:20 Wound - No Site/Description Given Wound Culture - Preliminary Staphylococcus species GNR lactose microcomputer technician GNR lactose microcomputer technician#2 GNR lactose microcomputer technician#3 11/24/24 14:15 Fluid - Thoracentesis Fluid Gram Stain - Final 11/24/24 14:15 Fluid - Thoracentesis Fluid Body Fluid Culture - Final Culture exhibits no growth. 11/24/24 14:15 Fluid - Thoracentesis Fluid Anaerobic Culture - Final No anaerobic bacteria isolated. 11/22/24 14:48 Blood Culture (Wb) - Left Hand Blood Culture - Final No growth in 5 days. 11/22/24 10:00 Blood Culture (Wb) - Anticubital Left Blood Culture - Final No growth in 5 days. 11/22/24 14:54 Blood Culture (Wb) - Right Hand Blood Culture - Final No growth in 5 days. 11/22/24 17:33 Wound - Ankle Gram Stain - Final 11/22/24 17:33 Wound - Ankle Wound Culture - Final Enterobacter cloacae complex Klebsiella oxytoca Enterococcus faecalis Staphylococcus aureus 11/22/24 19:01 Urine, Catheterized Urine Culture - Final Culture exhibits no growth. 11/22/24 10:00 Blood Culture (Wb) - Anticubital Right Blood Culture - Final Klebsiella oxytoca 11/22/24 22:44 Nasal Secretion MRSA (PCR) - Final 11/22/24 23:05 Mucosa - Nasopharyngeal Respiratory Panel (PCR) - Final 11/22/24 19:01 Urine Catheter - Mayers Legionella Antigen - Final 11/22/24 19:01 Urine Catheter - Mayers Streptococcus pneumoniae Antigen (M - Final Dosing Weight Weight used for dosin.1 kg Estimated Creatinine Clearance Estimated Creatinine Clearance: ~ 68 Goal Trough Goal Trough: 15-20 mcg/mL Pharmacy Plan for Drug Dosing Pharmacy Plan for Drug Dosing: Vancomycin random level = 16.5, resume with 750 mg Q12H Pharmacy Service will continue to monitor and adjust dosing as required. Follow-Up Labs Follow-Up Labs: Trough: Vancomycin Date/Time Labs Ordered Labs to be done on [date and time ordered]: 12/05/24 @ 0138
[2024-12-03] MEDS: Vancomycin HCl 750 MG in 0.9% Normal Saline (250mL Bag) 250 ML 250 MG IV (15:20)
[2024-12-03] MEDS: MELATONIN 3 MG TABLET 6 MG PO (22:10)
[2024-12-04] VITALS (13 sets, daily range): BP systolic 100–120; BP diastolic 62–77; PULSE 98–122; RESP 16–20; TEMP 36.3–36.8; O2SAT 92–100; BMI 27.0
[2024-12-04] MEDS: Vancomycin HCl 750 MG in 0.9% Normal Saline (250mL Bag) 250 ML 250 MG IV ×2 (01:13→14:51)
[2024-12-04] MEDS: Cefepime HCl 1 GM in 0.9% Normal Saline (50mL MB+) 50 ML IV ×3 (06:09→21:09)
[2024-12-04] MEDS: 0.9% Saline Lock 10 ML Syringe IV ×3 (08:03→21:10)
--- NOTE | 2024-12-04 09:05 | PN.HOSP_ITS ---
Reason for Visit Chief Complaint: Stroke alert Subjective Subjective Daughter states that patient is been having some confusion. Objective Data Objective Data Vital Signs: Vital Signs Temp Pulse Resp BP Pulse Ox O2 Del Method O2 Flow Rate 36.5 C L 107 H 16 103/72 97 Room Air 2 12/04/24 07:55 12/04/24 07:55 12/04/24 07:55 12/04/24 07:55 12/04/24 07:59 12/04/24 07:59 12/04/24 07:55 FiO2 25 11/23/24 08:00 Oxygen Flow Rate (L/min) 2 Oxygen Delivery Method Room Air Weight: 87.9 kg Body Mass Index (BMI) 27.0 Intake & Output: Intake and Output for Last 24 Hours 12/02/24 12/03/24 12/04/24 23:59 23:59 23:59 Intake Total 990 / 990 1255 / 1375 435 / 435 Output Total 1000 / 1000 2200 / 3325 2024 / 2024 Balance -10 / -10 -945 / -1950 -1590 / -1590 Lab / Micro Data 12/03/24 05:43 12/03/24 05:43 Labs: Laboratory Results - last 24 hr 12/03/24 11:51: POC Glucose 167 H 12/03/24 13:00: Random Vancomycin 16.5 H 12/03/24 16:40: POC Glucose 205 H 12/03/24 22:08: POC Glucose 151 H 12/04/24 06:08: POC Glucose 110 H Micro: Microbiology 12/01/24 13:20 Wound - No Site/Description Given Gram Stain - Final 12/01/24 13:20 Wound - No Site/Description Given Wound Culture - Preliminary Staphylococcus species GNR lactose manager loan GNR lactose manager loan#2 GNR lactose manager loan#3 11/24/24 14:15 Fluid - Thoracentesis Fluid Gram Stain - Final 11/24/24 14:15 Fluid - Thoracentesis Fluid Body Fluid Culture - Final Culture exhibits no growth. 11/24/24 14:15 Fluid - Thoracentesis Fluid Anaerobic Culture - Final No anaerobic bacteria isolated. 11/22/24 14:48 Blood Culture (Wb) - Left Hand Blood Culture - Final No growth in 5 days. 11/22/24 10:00 Blood Culture (Wb) - Anticubital Left Blood Culture - Final No growth in 5 days. 11/22/24 14:54 Blood Culture (Wb) - Right Hand Blood Culture - Final No growth in 5 days. 11/22/24 17:33 Wound - Ankle Gram Stain - Final 11/22/24 17:33 Wound - Ankle Wound Culture - Final Enterobacter cloacae complex Klebsiella oxytoca Enterococcus faecalis Staphylococcus aureus 11/22/24 19:01 Urine, Catheterized Urine Culture - Final Culture exhibits no growth. 11/22/24 10:00 Blood Culture (Wb) - Anticubital Right Blood Culture - Final Klebsiella oxytoca 11/22/24 22:44 Nasal Secretion MRSA (PCR) - Final 11/22/24 23:05 Mucosa - Nasopharyngeal Respiratory Panel (PCR) - Final 11/22/24 19:01 Urine Catheter - Mayers Legionella Antigen - Final 11/22/24 19:01 Urine Catheter - Mayers Streptococcus pneumoniae Antigen (M - Final Rhythm Strip Rhythm Strip: Sinus Tach Rate: 111 Ectopy: None Physical Exam Const Constitutional Narrative: Up in chair. Afebrile. No respiratory distress. No conversational dyspnea. HEENT head/scalp atraumatic and moist oral mucous membranes Resp normal respiratory effort and no retractions Cardio regular rate, regular rhythm, S1 normal heart sound and S2 normal heart sound GI normal to inspection, nondistended, normoactive bowel sounds, soft to palpation, non-tender and non-distended Extremity Extremity Narrative: Erythema of the left lower extremity. Dressing was taken down and visualized. Has the unroofed section of the ecchymosis on the dorsum of his left foot. Palpation on the plantar aspect he has minimal pain with palpation. But it overall is swollen. Does have erythema immediately and asked venous stasis ulcers along the medial portion of his Achilles. Erythema overall appears slightly improved from the 30th. Neuro Sensorium / Orientation: awake Assessment & Plan Assessment/Plan (1) Severe sepsis: (2) Altered mental status: PLAN: Plan (1) Severe sepsis: PLAN: Plan Septic shock * POA. Since resolved * Klebsiella bacteremia. Source ankle v pneumonia. * Completed 7 days of abx but restarted back on antibiotics for concern for his ongoing infection of his left lower extremity. Pleural effusion * transudative 2/2 HFrEF * had diagnostic thoracentesis done on with removal of 1.15L of of fluid. Acute HFrEF: * proBNP was markedly elevated at >89998 * Monitor intake and output. Fluid restriction to 1500 cc daily. * has known EF of 30-35% from Echo on 09/19/2024 * now off lasix drip due to low BP BENOIT * resolved. Left lower extremity ecchymosis and erythema * Duplex on 11/22 was negative. * ABIs 09/08/24: R 0.8, L 1.04. Repeat preliminary was 0.94 on the right and 0.72 on the left. Follow-up with vascular surgery as outpatient. * Continue with antibiotics for now. Delirium * Overall improved. * Discussed with the patient's daughter that I am concerned that he has dementia. I told him I cannot diagnose him as dementia as a hospital setting is not the ideal setting to evaluate someone for dementia but I did recommend outpatient evaluation with a geriatric physician or neurology. Chronic conditions: * Type 2 diabetes mellitus:on lantus 20 units daily. Insulin sliding scale. Accu-Cheks ACHS. Also on dapagliflozin. * CAD: On aspirin and Plavix as well as high intensity statin. Also on Repatha. Debility and weakness with failure to thrive. Patient states he passed out at home. Apparently seems like he was very weak and slid to the floor and did not hit his head. PT OT on board. Fall precautions. CODE STATUS: Full code Disposition: plan for SNF when medially ready. Patient has insurance precertification through the second. Discussed with the patient's daughter that will discharge the patient when he is ready but is unclear if he would be medically ready to be discharged on the second. If he needs to be discharged later then he will need to have repeat insurance authorization restarted. Charges/Coding Visit Charges Inpatient E&M: 84462 Subs Hosp L2 NIHSS NIHSS Nursing Documentation NIHSS Nursing Documentation: NIHSS: Ischemic Stroke/TIA Start: 11/28/24 20:59 Freq: Q4H Status: Complete Protocol: Activity Type Activity Date Activity User E-sign Co-sign Detail Recorded Client Recorded Date Recorded By Document 11/29/24 02:00 [facility] [place] [id number] 11/29/24 02:57 SILVIO 11/29/24 02:00 NIH Stroke Scale [NIHSS] A score of 0 is normal or asymptomatic . Total possible score is 42. Inpatient: RN or Physician to activate a stroke alert for onset of new stroke symptoms or with NIHSS increase >/= 3 points. Following change in neurological status, NIHSS will be performed per physician order or more frequently PRN. -1a. Level of Consciousness 1 - Not alert; Arousable by minor stimuli to obey, answer & respond -1b. LOC Questions 1 - Answers ONE question correctly -1c. LOC Commands 0 - Performs BOTH tasks correctly -2. Best Gaze 0 - Normal -3. Visual 0 - No visual loss -4. Facial Palsy 1 - Minor paralysis ( flattened nasolabial fold , asymmetry on smiling) -5a. Left Arm 0 - No drift; arm holds 90 ( or 45) degrees for full 10 seconds -5b. Right Arm 0 - No drift; arm holds 90 ( or 45) degrees for full 10 seconds -6a. Left Leg 1 - Drift; leg falls by the end of 5- seconds, but does not hit bed -6b. Right Leg 1 - Drift; leg falls by the end of 5- seconds, but does not hit bed -7. Limb Ataxia 0 - Absent -8. Sensory 0 - Normal; no sensory loss -9. Best Language 0 - No aphasia; normal -10. Dysarthria 0 - Normal -11. Extinction and Inattention 0 - No abnormality -Total 5 Query Text:A score of 0 is normal or asymptomatic. Total possible score is 42 . ED: Notify Physician for NIHSS increase by > / = 3 points. Inpatient: RN or Physician to activate a stroke alert for NIHSS increase of > / = 3 points. Coma Scale [Assess] -Eye Opening Spontaneous -Motor Obeys Commands -Verbal Confused [Total] -Coma Scale Total 14
[2024-12-04] MEDS: Senna Tablet 2 TABLET PO (09:12)
[2024-12-04] MEDS: Insulin Glargine-YFGN 100 UNIT/ML Pen 20 UNIT SC (11:19)
[2024-12-04] MEDS: Polyethylene Glycol 3350 17 GM PACKET PO (18:17)
[2024-12-04] MEDS: MELATONIN 3 MG TABLET 6 MG PO (21:09)
[2024-12-05] VITALS (8 sets, daily range): BP systolic 102–111; BP diastolic 63–74; PULSE 98–103; RESP 16–20; TEMP 36.1–36.7; O2SAT 93–100; BMI 26.6
[2024-12-05 02:18] LABS: Vancomycin, Trough Level 20.3 ug/mL (5.0-15.0)
--- NOTE | 2024-12-05 02:49 | PCM.RX.CS ---
Consult Antibiotic Management Pharmacy has been consulted to manage selected antibiotic: Vancomycin Type of Intervention Type of Consult: Follow-up Labs Labs: Sodium 132 mmol/L (133-145) L 12/03/24 05:43 Potassium 4.4 mmol/L (3.3-5.1) 12/03/24 05:43 Chloride 95 mmol/L (98-108) L 12/03/24 05:43 Carbon Dioxide 23.6 mmol/L (21.0-32.0) 12/03/24 05:43 Anion Gap 13 (5-15) 12/03/24 05:43 BUN 37 mg/dL (4-19) H 12/03/24 05:43 Creatinine 1.17 mg/dL (0.70-1.20) 12/03/24 05:43 Est GFR (MDRD) Non-Af 70 (>60) 12/03/24 05:43 BUN/Creatinine Ratio 31.6 RATIO (10-20) H 12/03/24 05:43 Glucose 102 mg/dL (70-99) H 12/03/24 05:43 Vancomycin Trough 20.3 ug/mL (5.0-15.0) H 12/05/24 01:38 Random Vancomycin 16.5 ug/mL (0.0-15.0) H 12/03/24 13:00 Microbiology Microbiology: Microbiology 12/01/24 13:20 Wound - No Site/Description Given Gram Stain - Final 12/01/24 13:20 Wound - No Site/Description Given Wound Culture - Preliminary Staphylococcus aureus Klebsiella oxytoca GNR lactose rn documentation specialist#2 Escherichia coli Coag Negative Staph 11/24/24 14:15 Fluid - Thoracentesis Fluid Gram Stain - Final 11/24/24 14:15 Fluid - Thoracentesis Fluid Body Fluid Culture - Final Culture exhibits no growth. 11/24/24 14:15 Fluid - Thoracentesis Fluid Anaerobic Culture - Final No anaerobic bacteria isolated. 11/22/24 14:48 Blood Culture (Wb) - Left Hand Blood Culture - Final No growth in 5 days. 11/22/24 10:00 Blood Culture (Wb) - Anticubital Left Blood Culture - Final No growth in 5 days. 11/22/24 14:54 Blood Culture (Wb) - Right Hand Blood Culture - Final No growth in 5 days. 11/22/24 17:33 Wound - Ankle Gram Stain - Final 11/22/24 17:33 Wound - Ankle Wound Culture - Final Enterobacter cloacae complex Klebsiella oxytoca Enterococcus faecalis Staphylococcus aureus 11/22/24 19:01 Urine, Catheterized Urine Culture - Final Culture exhibits no growth. 11/22/24 10:00 Blood Culture (Wb) - Anticubital Right Blood Culture - Final Klebsiella oxytoca 11/22/24 22:44 Nasal Secretion MRSA (PCR) - Final 11/22/24 23:05 Mucosa - Nasopharyngeal Respiratory Panel (PCR) - Final 11/22/24 19:01 Urine Catheter - Mayers Legionella Antigen - Final 11/22/24 19:01 Urine Catheter - Mayers Streptococcus pneumoniae Antigen (M - Final Dosing Weight Weight used for dosin.9 kg Estimated Creatinine Clearance Estimated Creatinine Clearance: 68 Goal Trough Goal Trough: 15-20 mcg/mL Pharmacy Plan for Drug Dosing Pharmacy Plan for Drug Dosing: Vancomycin trough level of 20.3, drawn 10.75hrs post-dose, was just barely above the target range of 15-20. With the draw being slightly early, will continue with 750mg q12h. Will draw another trough level in two days. Pharmacy Service will continue to monitor and adjust dosing as required. Follow-Up Labs Follow-Up Labs: Trough: Vancomycin Date/Time Labs Ordered Labs to be done on [date and time ordered]: 12/07/24 @0130
[2024-12-05] MEDS: Vancomycin HCl 750 MG in 0.9% Normal Saline (250mL Bag) 250 ML 250 MG IV ×2 (02:56→14:53)
[2024-12-05] MEDS: 0.9% Saline Lock 10 ML Syringe IV ×3 (02:57→21:22)
[2024-12-05] MEDS: Cefepime HCl 1 GM in 0.9% Normal Saline (50mL MB+) 50 ML IV ×3 (05:31→21:20)
[2024-12-05] MEDS: Senna Tablet 2 TABLET PO (05:37)
[2024-12-05 06:31] LABS: Hematocrit 39.1 % (40-54); Hemoglobin 12.8 g/dL (13.0-16.5); Immature Granulocytes Count 0.080 X10^3/uL (0.0-0.0); Mean Corp Hgb Conc 32.7 g/dL (32-36); Mean Corpuscular Volume 88.9 fL (80-94); Mean Platelet Vol. 9.3 fl (6.2-12.0); NRBC Flagged by Analyzer 0 % (0-5); Platelet Count 458 K/mm3 (150-450); RBC Distribution Width CV 15.1 % (11.6-14.6); RBC Distribution Width SD 48.7 fl (35.1-43.9); Red Blood Count 4.40 M/mm3 (4.6-6.2); White Blood Count 13.6 K/mm3 (4.4-11.0)
[2024-12-05 06:57] LABS: Anion Gap 14 (5-15); BUN 44 mg/dL (4-19); BUN/Creat Ratio 36.9 RATIO (10-20); Calcium,Total 8.9 mg/dL (7.6-11.0); Carbon Dioxide 21.9 mmol/L (21.0-32.0); Chloride 95 mmol/L (98-108); Estimated Creatinine Clearance 66.24 ml/min (50-250); Glucose 102 mg/dL (70-99); Potassium 4.0 mmol/L (3.3-5.1)
[2024-12-05] MEDS: Insulin Glargine-YFGN 100 UNIT/ML Pen 20 UNIT SC (11:54)
--- NOTE | 2024-12-05 16:12 | PN_ITS ---
Subjective Subjective Patient seen and examined. His daughter was by his bedside. He had no active complaints. His left foot cellulitis is not improving. He is back on antibiotics. Review of systems is otherwise negative. Objective Data Objective Data Vital Signs: Vital Signs Temp Pulse Resp BP Pulse Ox O2 Del Method O2 Flow Rate 97.9 F 103 H 20 H 102/72 97 Nasal Cannula 2 12/05/24 13:28 12/05/24 13:37 12/05/24 13:37 12/05/24 13:28 12/05/24 13:28 12/05/24 14:18 12/05/24 14:18 FiO2 25 11/23/24 08:00 Oxygen Flow Rate (L/min) 2 Oxygen Delivery Method Nasal Cannula Weight: 190 lb 11.198 oz Body Mass Index (BMI) 26.6 Intake & Output: Intake and Output for Last 24 Hours 12/03/24 12/04/24 12/05/24 23:59 23:59 23:59 Intake Total 1255 / 1375 1880 / 1880 1025 / 1025 Output Total 2200 / 3325 4475 / 4475 875 / 875 Balance -945 / -1950 -2595 / -2595 150 / 150 Lab / Micro Data 12/05/24 05:53 12/05/24 05:53 Labs: Laboratory Results - last 24 hr 12/04/24 16:41: POC Glucose 144 H 12/04/24 21:06: POC Glucose 174 H 12/05/24 01:38: Vancomycin Trough 20.3 H 12/05/24 05:53: WBC 13.6 H, RBC 4.40 L, Hgb 12.8 L, Hct 39.1 L, MCV 88.9, MCH 29.1, MCHC 32.7, RDW Std Deviation 48.7 H, RDW Coeff of Maycol 15.1 H, Plt Count 458 H, MPV 9.3, Immature Gran % (Auto) 0.600, Neut % (Auto) 79.3 H, Lymph % (Auto) 13.1 L, [place] % (Auto) 5.8, Eos % (Auto) 0.8, Baso % (Auto) 0.4, Absolute Neuts (auto) 10.8 H, Absolute Lymphs (auto) 1.78, Nucleated RBC % 0, Sodium 132 L, Potassium 4.0, Chloride 95 L, Carbon Dioxide 21.9, Anion Gap 14, BUN 44 H, Creatinine 1.20, Estim Creat Clear Calc 66.24, Est GFR (MDRD) Non-Af 68, B UN/Creatinine Ratio 36.9 H, Glucose 102 H, Calcium 8.9 12/05/24 06:57: POC Glucose 103 12/05/24 11:24: POC Glucose 197 H Micro: Microbiology 12/01/24 13:20 Wound - No Site/Description Given Gram Stain - Final 12/01/24 13:20 Wound - No Site/Description Given Wound Culture - Preliminary Staphylococcus aureus Klebsiella oxytoca GNR lactose safety relief valve technician#2 Escherichia coli Coag Negative Staph 11/24/24 14:15 Fluid - Thoracentesis Fluid Gram Stain - Final 11/24/24 14:15 Fluid - Thoracentesis Fluid Body Fluid Culture - Final Culture exhibits no growth. 11/24/24 14:15 Fluid - Thoracentesis Fluid Anaerobic Culture - Final No anaerobic bacteria isolated. 11/22/24 14:48 Blood Culture (Wb) - Left Hand Blood Culture - Final No growth in 5 days. 11/22/24 10:00 Blood Culture (Wb) - Anticubital Left Blood Culture - Final No growth in 5 days. 11/22/24 14:54 Blood Culture (Wb) - Right Hand Blood Culture - Final No growth in 5 days. 11/22/24 17:33 Wound - Ankle Gram Stain - Final 11/22/24 17:33 Wound - Ankle Wound Culture - Final Enterobacter cloacae complex Klebsiella oxytoca Enterococcus faecalis Staphylococcus aureus 11/22/24 19:01 Urine, Catheterized Urine Culture - Final Culture exhibits no growth. 11/22/24 10:00 Blood Culture (Wb) - Anticubital Right Blood Culture - Final Klebsiella oxytoca 11/22/24 22:44 Nasal Secretion MRSA (PCR) - Final 11/22/24 23:05 Mucosa - Nasopharyngeal Respiratory Panel (PCR) - Final 11/22/24 19:01 Urine Catheter - Mayers Legionella Antigen - Final 11/22/24 19:01 Urine Catheter - Mayers Streptococcus pneumoniae Antigen (M - Final Rhythm Strip Rhythm Strip: Sinus Tach Rate: 111 Ectopy: None Physical Exam Const alert, oriented x3 and no apparent distress General Appearance: cooperative HEENT normocephalic, head/scalp atraumatic, moist oral mucous membranes and oropharynx normal Eyes PERRL and EOMs intact bilaterally Neck no lymphadenopathy and supple Lymph Lymphatic: no lymphedema noted Resp normal respiratory effort, normal air movement and clear to auscultation bilaterally Cardio regular rate, regular rhythm, S1 normal heart sound, S2 normal heart sound and no murmurs GI normal to inspection, nondistended, normoactive bowel sounds, soft to palpation and non-tender Extremity normal capillary refill, no clubbing, cyanosis or edema and no calf tenderness General Extremity: no tenderness to palpation of joints or extremities Skin Skin Narrative: dorsum of left foot is black, tender with surrounding erythema and differential warmth. SKin is dry and peeling. Neuro CN's II-XII intact bilaterally and no focal motor deficits Motor Exam: general weakness Psych thought process normal, cooperative and affect normal Assessment & Plan Assessment/Plan (1) Severe sepsis: (2) Lower extremity edema: PLAN: Plan #Septic shock due to lower extremity cellulitis and pneumonia with bilateal pleural efffusions * Septic shock and pneumonia have resolved. Patient now on room air. * He had Klebsiella bacteremia. Completed 7 days of IV antibiotics. ID was on board. However he was started back on IV cefepime due to concerns for infection of his left foot. * #Left lower extremity cellulitis * Dorsum of left foot is blackened with surrounding erythema. He did have ankle-brachial index done which showed evidence of moderate peripheral artery disease on the left with SUZY of 0.72. SUZY on the right was 0.94. * He is on IV cefepime. I do think it is prudent to get podiatry on board as the foot does not seem to be improving and actually seems to be worsening. * Consult podiatry. #Acute heart failure with reduced ejection fraction: EF is 30 to 35%. Off Lasix drip now as he was hypotensive. Currently on room air and stable. #Bilateral pleural effusions: He had thoracentesis done which showed that was a transudative fluid. He had 1.15 L of fluid removed via diagnostic thoracentesis on 11/25/2024 #Delirium and altered mental status: Largely improved. Patient doing much better. Will need follow-up on outpatient basis for evaluation for dementia. #Type 2 diabetes mellitus: On Lantus. Insulin sliding scale. Checks ACHS. Also on dapagliflozin. #CAD: On aspirin and Plavix as well as Repatha and high intensity statin #Debility and weakness with failure to thrive: PT OT on board. Fall precautions. DVT prophylaxis: SCDs Charges/Coding Visit Charges Inpatient E&M: 69705 Subs Hosp L2
--- NOTE | 2024-12-05 17:18 | RAD_ITS ---
PROCEDURE: FOOT MIN 3 VIEWS 12/05/2024 REASON FOR EXAM: PAIN TECHNIQUE: Procedure Code: RADFO Modality: DX Procedure: FOOT MIN 3 VIEWS Laterality: LEFT. COMPARISON: CT SCAN ON 11/29/2024. FINDINGS: Soft tissue edema and swelling overlying the dorsum of the foot. Calcaneal spur formation. Mild osteopenia of the visualized bones. Degenerative joint disease. No fracture or dislocation is seen. No lytic or blastic bone lesion is noted. Metallic clips are noted in the aspect of the leg. RAD/Foot min 3 Views IMPRESSION: Soft tissue edema and swelling. [facility]
--- NOTE | 2024-12-05 18:53 | CON.PCM_ITS ---
Assessment & Plan Assessment/Plan (1) Atherosclerosis of [place] arteries of extremities with gangrene, left leg: (2) History of diabetes mellitus: (3) Type 2 diabetes mellitus with foot ulcer: PLAN: Plan Evaluation preformed. Reviewed diagnostic data. Left foot xrays reviewed - no gas or acute findings. Clinically no visible abscess. LEAS reviewed and noted left amanda 0.72 and tbi 0.11 - discussed and reviewed with Dr. Flowers, consult placed. MRI was ordered left foot further evaluation to rule out deep infection. Reviewed culture results wound left foot - multiple organisms, patient on IV Vanc/Cefepime. Wound care left foot: aquacel ag, gauze, and kerlix. Also discussed and advised patient on importance of tobacco cessation. Podiatry will follow, thank you for consultation. Discussed and reviewed with Dr. Johnson. HPI Consult Data Date of Consult: 12/05/24 HPI Narrative Reason for Consultation: Left foot wound HPI Narrative: KANA MEJIA, is a 64 M with many medical problems including but not limited to diabetes, pvd, and tobacco use presented to [place] [facility] on 11/22/2024 with altered mental status, bacteremia, and severe sepsis, along with bilateral LE cellulitis, he has been in hospital since that time. He has wound on left foot, podiatry was consulted for further evaluation. Patient relates he developed wound several weeks ago. He relates there has been a lot of pain, he relates the pain is better this evening though. He has history of lower extremity peripheral arterial disease, had right LE vascular intervention Apr [address] Flowers and right LE is much improved since that time. Wound left foot was cultured and polyorganisms noted, patient on IV vanco/cefepime. WBC is elevated. Left foot xrays negative for gas or acute findings. His daughter Wagner is at bedside, relates swelling is down. [facility] Medical History History of CVA (cerebrovascular accident) Cardiac LV ejection fraction 30-35% GERD (gastroesophageal reflux disease) Anxiety High blood cholesterol Diabetes mellitus Emphysema, unspecified COPD (chronic obstructive pulmonary disease) Decreased left ventricular function Encounter for screening for malignant neoplasm of lung in current smoker with 30 pack year history or greater Stenosis of right carotid artery Insulin dependent diabetes mellitus History of non-ST elevation myocardial infarction (NSTEMI) (06/11/18) Emphysema lung Asthma Type 2 diabetes mellitus Arthritis Pancreatitis GERD (gastroesophageal reflux disease) Nicotine dependence Atherosclerosis of coronary artery of [place] heart without angina pectoris Hyperlipidemia Essential (primary) hypertension Home Medications ?Medication ?Instructions ?Recorded ?Last Taken ?Type blood sugar diagnostic (FreeStyle #50 ea 04/02/21 Unkn own Rx Test strips) blood-glucose meter (FreeStyle #1 ea 04/02/21 Unknown Rx System Kit) lancets 28 gauge (FreeStyle #50 ea 04/02/21 Unknown Rx Lancets) pen needle, diabetic 31 gauge x #100 ea 04/02/21 Unkno wn Rx 3/16 (1st Tier Unifine Pentips Plus) Handicap placard #1 ea 07/22/23 Unknown Rx pen needle, diabetic 31 gauge x #100 ea 10/28/23 Unkno wn Rx 08/19 (Comfort EZ Pen Mauk) evolocumab 140 mg/mL subcutaneous 140 mg subcut Q2W ch olesterol #6 mL 05/09/24 09/12/24 Rx pen injector (Wolf Daughertyick) insulin glargine 100 unit/mL (3 20 unit subcut DAILY D iabetes 06/17/24 09/18/24 History mL) subcutaneous pen (Lantus Solostar U-100 Insulin) omeprazole 20 mg capsule,delayed 20 mg PO DAILY reflux #90 caps 09/13/24 09/18/24 Rx release fluticasone propionate 50 2 spray intranasal DAILY PRN nasal 09/18/24 Unknown History mcg/actuation nasal congestion spray,suspension (Flonase Allergy Relief) nitroglycerin 0.4 mg sublingual 0.4 mg sublingual Q5M PRN 09/27/24 Unknown Rx tablet Cardiac/Chest Pain #25 tabs aspirin 81 mg chewable tablet 81 mg PO BREAKFAST preve ntative 11/03/24 Unknown Rx #90 tabs clopidogrel 75 mg tablet 75 mg PO DAILY antiplatelet #90 11/03/24 Unknown Rx tabs dapagliflozin propanediol 10 mg 10 mg PO DAILY diabete s #90 TABLETS 11/03/24 Unknown Rx tablet (Farxiga) ezetimibe 10 mg tablet 10 mg PO DAILY cholesterol # 90 tabs 11/03/24 Unknown Rx albuterol sulfate 90 mcg/actuation 2 puff inhalation Q 4H PRN 11/04/24 Unknown Rx aerosol inhaler shortness of breath or wheez ing #6.7 grams mometasone-formoterol HFA 100 2 puff inhalation BID CO PD #13 11/04/24 Unknown Rx mcg-5 mcg/actuation aerosol grams inhaler (Dulera) furosemide 40 mg tablet 40 mg PO BID diuretic 60 day s #120 11/13/24 Unknown Rx tabs nicotine 21 mg/24 hr daily 1 patch transdermal DAILY # 56 ea 11/13/24 Unknown Rx transdermal patch sacubitril 24 mg-valsartan 26 mg 1 tab PO BID #60 tabs 11/13/24 Unknown Rx tablet (Entresto) spironolactone 25 mg tablet 25 mg PO DAILY diuretic 60 days 11/13/24 Unknown Rx #60 tabs Allergy/AdvReac Type Severity Reaction Status Date / Time amoxicillin Allergy Angioedema Verified 12/01/24 10:41 lindane Allergy Rash Verified 11/16/24 10:06 Family History Father Asthma Alcoholism Arthritis Heart disease Hypertension High cholesterol CVA (cerebral vascular accident) Lung cancer Grandfather Myocardial infarction Surgical History S/P CABG x 4 History of hernia repair History of carotid endarterectomy (01/06/14) H/O coronary artery bypass surgery (2006) History of left heart catheterization (06/11/18) Social History household members: none Smoking Status: Former smoker Tobacco: How many years used: 45 Electronic Cigarette Use: not used second hand exposure: Yes quit status: considering quitting alcohol intake: never substance use type: does not use caffeine: Yes Type: coffee Number of servings: 5 what type of physical activity do you participate in: none Physical Exam Const alert and no apparent distress Constitutional Narrative: Left foot with large dry chronic appearing necrotic eschar wound to dorsal foot, there is diffuse lower extremity erythema, there is edema to left foot, ankle and lower leg, there is no drainage, no maloder, no blistering, no fluctuance, no crepitus, no visible abscess to left foot, ankle or leg. Toes are cool bilateral. Right leg with very small superficial wound to anterior leg otherwise no wounds, there is diffuse erythema to right LE as well. Sensation intact to toes with light touch bilateral. Patient able to plantarflex and dorsiflex toes and foot/ankle bilateral. There is POP to left midfoot at site of eschar, no other POP to foot, ankle or leg bilateral. Reviewed LEAS and noted amanda left is 0.72 but tbi is 0.11. Lab / Micro Data 12/05/24 05:53 12/05/24 05:53 Labs: Laboratory Results - last 24 hr 12/04/24 21:06: POC Glucose 174 H 12/05/24 01:38: Vancomycin Trough 20.3 H 12/05/24 05:53: WBC 13.6 H, RBC 4.40 L, Hgb 12.8 L, Hct 39.1 L, MCV 88.9, MCH 29.1, MCHC 32.7, RDW Std Deviation 48.7 H, RDW Coeff of Maycol 15.1 H, Plt Count 458 H, MPV 9.3, Immature Gran % (Auto) 0.600, Neut % (Auto) 79.3 H, Lymph % (Auto) 13.1 L, [place] % (Auto) 5.8, Eos % (Auto) 0.8, Baso % (Auto) 0.4, Absolute Neuts (auto) 10.8 H, Absolute Lymphs (auto) 1.78, Nucleated RBC % 0, Sodium 132 L, Potassium 4.0, Chloride 95 L, Carbon Dioxide 21.9, Anion Gap 14, BUN 44 H, Creatinine 1.20, Estim Creat Clear Calc 66.24, Est GFR (MDRD) Non-Af 68, B UN/Creatinine Ratio 36.9 H, Glucose 102 H, Calcium 8.9 12/05/24 06:57: POC Glucose 103 12/05/24 11:24: POC Glucose 197 H 12/05/24 16:25: POC Glucose 170 H Rhythm Strip Rhythm Strip: Sinus Tach Rate: 111 Ectopy: None
[2024-12-05] MEDS: MELATONIN 3 MG TABLET 6 MG PO (21:20)
[2024-12-06] VITALS (9 sets, daily range): BP systolic 111–127; BP diastolic 68–106; PULSE 89–103; RESP 16–20; TEMP 36–36.5; O2SAT 94–98; BMI 25.9
[2024-12-06] MEDS: Vancomycin HCl 750 MG in 0.9% Normal Saline (250mL Bag) 250 ML 250 MG IV ×2 (01:41→16:27)
[2024-12-06 03:55] LABS: Hematocrit 39.4 % (40-54); Hemoglobin 12.9 g/dL (13.0-16.5); Immature Granulocytes Count 0.050 X10^3/uL (0.0-0.0); Mean Corp Hgb Conc 32.7 g/dL (32-36); Mean Corpuscular Volume 89.7 fL (80-94); Mean Platelet Vol. 9.2 fl (6.2-12.0); NRBC Flagged by Analyzer 0 % (0-5); Platelet Count 399 K/mm3 (150-450); RBC Distribution Width CV 15.3 % (11.6-14.6); RBC Distribution Width SD 49.5 fl (35.1-43.9); Red Blood Count 4.39 M/mm3 (4.6-6.2); White Blood Count 11.6 K/mm3 (4.4-11.0)
[2024-12-06 04:53] LABS: Anion Gap 12 (5-15); BUN 45 mg/dL (4-19); BUN/Creat Ratio 37.3 RATIO (10-20); Calcium,Total 8.8 mg/dL (7.6-11.0); Carbon Dioxide 22.3 mmol/L (21.0-32.0); Chloride 100 mmol/L (98-108); Estimated Creatinine Clearance 65.69 ml/min (50-250); Glucose 160 mg/dL (70-99); Potassium 4.0 mmol/L (3.3-5.1)
[2024-12-06] MEDS: Cefepime HCl 1 GM in 0.9% Normal Saline (50mL MB+) 50 ML IV ×3 (06:26→21:13)
[2024-12-06] MEDS: Senna/Docusate Sodium 1 Tablet 2 TABLET PO (08:08)
[2024-12-06] MEDS: Insulin Glargine-YFGN 100 UNIT/ML Pen 20 UNIT SC (08:10)
--- NOTE | 2024-12-06 11:39 | PN_ITS ---
Subjective Subjective Patient seen and examined with his nurse by his bedside.. His daughter was by his bedside. He had no active complaints today. He had an uneventful night. Review of systems otherwise negative. Objective Data Objective Data Vital Signs: Vital Signs Temp Pulse Resp BP Pulse Ox O2 Del Method O2 Flow Rate 97.7 F L 102 H 18 127/75 H 98 Nasal Cannula 2 12/06/24 11:15 12/06/24 11:15 12/06/24 11:15 12/06/24 11:15 12/06/24 11:15 12/06/24 11:15 12/06/24 11:15 FiO2 25 11/23/24 08:00 Oxygen Flow Rate (L/min) 2 Oxygen Delivery Method Nasal Cannula Weight: 186 lb 4.65 oz Body Mass Index (BMI) 25.9 Intake & Output: Intake and Output for Last 24 Hours 12/04/24 12/05/24 12/06/24 23:59 23:59 23:59 Intake Total 1880 / 1880 1940 / 1940 555 / 555 Output Total 4475 / 4475 2225 / 2225 1350 / 1350 Balance -2595 / -2595 -285 / -285 -795 / -795 Lab / Micro Data 12/06/24 03:40 12/06/24 03:40 Labs: Laboratory Results - last 24 hr 12/05/24 11:24: POC Glucose 197 H 12/05/24 16:25: POC Glucose 170 H 12/05/24 21:17: POC Glucose 161 H 12/06/24 03:40: WBC 11.6 H, RBC 4.39 L, Hgb 12.9 L, Hct 39.4 L, MCV 89.7, MCH 29.4, MCHC 32.7, RDW Std Deviation 49.5 H, RDW Coeff of Maycol 15.3 H, Plt Count 399, MPV 9.2, Immature Gran % (Auto) 0.400, Neut % (Auto) 79.1 H, Lymph % (Auto) 12.6 L, [place] % (Auto) 6.5, Eos % (Auto) 0.9, Baso % (Auto) 0.5, Absolute Neuts (auto) 9.2 H, Absolute Lymphs (auto) 1.46, Nucleated RBC % 0, Sodium 134, Potassium 4.0, Chloride 100, Carbon Dioxide 22.3, Anion Gap 12, BUN 45 H, C reatinine 1.21 H, Estim Creat Clear Calc 65.69, Est GFR (MDRD) Non-Af 67, B UN/Creatinine Ratio 37.3 H, Glucose 160 H, Calcium 8.8 12/06/24 06:28: POC Glucose 147 H Micro: Microbiology 12/01/24 13:20 Wound - No Site/Description Given Gram Stain - Final 12/01/24 13:20 Wound - No Site/Description Given Wound Culture - Final Staphylococcus aureus Klebsiella oxytoca Acinetobacter baumannii comple Escherichia coli Coag Negative Staph 11/24/24 14:15 Fluid - Thoracentesis Fluid Gram Stain - Final 11/24/24 14:15 Fluid - Thoracentesis Fluid Body Fluid Culture - Final Culture exhibits no growth. 11/24/24 14:15 Fluid - Thoracentesis Fluid Anaerobic Culture - Final No anaerobic bacteria isolated. 11/22/24 14:48 Blood Culture (Wb) - Left Hand Blood Culture - Final No growth in 5 days. 11/22/24 10:00 Blood Culture (Wb) - Anticubital Left Blood Culture - Final No growth in 5 days. 11/22/24 14:54 Blood Culture (Wb) - Right Hand Blood Culture - Final No growth in 5 days. 11/22/24 17:33 Wound - Ankle Gram Stain - Final 11/22/24 17:33 Wound - Ankle Wound Culture - Final Enterobacter cloacae complex Klebsiella oxytoca Enterococcus faecalis Staphylococcus aureus 11/22/24 19:01 Urine, Catheterized Urine Culture - Final Culture exhibits no growth. 11/22/24 10:00 Blood Culture (Wb) - Anticubital Right Blood Culture - Final Klebsiella oxytoca 11/22/24 22:44 Nasal Secretion MRSA (PCR) - Final 11/22/24 23:05 Mucosa - Nasopharyngeal Respiratory Panel (PCR) - Final 11/22/24 19:01 Urine Catheter - Mayers Legionella Antigen - Final 11/22/24 19:01 Urine Catheter - Mayers Streptococcus pneumoniae Antigen (M - Final Rhythm Strip Rhythm Strip: Sinus Tach Rate: 111 Ectopy: None Physical Exam Const alert, oriented x3 and no apparent distress General Appearance: cooperative HEENT normocephalic, head/scalp atraumatic, moist oral mucous membranes and oropharynx normal Eyes PERRL, EOMs intact bilaterally and conjunctivae normal Neck no lymphadenopathy, supple and no JVD Lymph Lymphatic: no lymphedema noted Resp Resp Narrative: on room air. has mildly diminished breath sounds bilaterally, no wheezes or crackles. on 2L of oxytgen by nasal canula Cardio regular rhythm, S1 normal heart sound, S2 normal heart sound and no murmurs Cardio Narrative: mild tachycardia GI normal to inspection, nondistended, normoactive bowel sounds, soft to palpation, non-tender and non-distended Extremity no clubbing, cyanosis or edema and no calf tenderness General Extremity: edema bilateral lower extremity Details: moderate and no tenderness to palpation of joints or extremities Skin Skin Narrative: dorsum of left foot is black, tender with surrounding erythema and differential warmth. SKin is dry and peeling. Neuro oriented x3, CN's II-XII intact bilaterally, moves all extremities, no focal motor deficits and no sensory deficits noted Sensorium / Orientation: awake, alert, oriented to person and oriented to place Coordination / Balance: [id number] test normal Motor Exam: general weakness Psych thought process normal, cooperative and affect normal Psych Narrative: weak, frail Mood & Affect: flat affect Assessment & Plan Assessment/Plan (1) Severe sepsis: (2) Lower extremity edema: PLAN: Plan #Septic shock due to lower extremity cellulitis and pneumonia with bilateal pleural efffusions * Septic shock and pneumonia have resolved. Patient now on room air. * He had Klebsiella bacteremia. Completed 7 days of IV antibiotics. ID was on board. However he was started back on IV cefepime due to concerns for infection of his left foot. * #Left lower extremity cellulitis * Dorsum of left foot is blackened with surrounding erythema. He did have ankle-brachial index done which showed evidence of moderate peripheral artery disease on the left with SUZY of 0.72. SUZY on the right was 0.94. * He is on IV cefepime. * Podiatry consulted yesterday and thinks this is likely due to peripheral artery disease. They have ordered an MRI of the foot to evaluate for any infection and vascular surgery has been consulted. Await vascular surgery evaluation. * #Acute heart failure with reduced ejection fraction: EF is 30 to 35%. Off Lasix drip now as he was hypotensive. Currently on room air and stable. #Bilateral pleural effusions: He had thoracentesis done which showed that was a transudative fluid. He had 1.15 L of fluid removed via diagnostic thoracentesis on 11/25/2024 #Delirium and altered mental status: Largely improved. Patient doing much better. Will need follow-up on outpatient basis for evaluation for dementia. #Type 2 diabetes mellitus: On Lantus. Insulin sliding scale. Checks ACHS. Also on dapagliflozin. #CAD: On aspirin and Plavix as well as Repatha and high intensity statin #Debility and weakness with failure to thrive: PT OT on board. Fall precautions. DVT prophylaxis: SCDs Charges/Coding Visit Charges Inpatient E&M: 86310 Subs Hosp L2
--- NOTE | 2024-12-06 11:42 | WOUNDNOTE ---
wound photo: left dorsal foot
--- NOTE | 2024-12-06 11:42 | WOUNDNOTE ---
wound photo: left lower leg
--- NOTE | 2024-12-06 12:40 | PCM.PROGNOTE ---
Subjective Subjective Patient was seen today for follow up on left foot. No new complaints. He was not able to lay still for MRI this morning. He relates to symptom relief left foot when he dangles foot down. Objective Data Objective Data Vital Signs: Vital Signs Temp Pulse Resp BP Pulse Ox O2 Del Method O2 Flow Rate 97.7 F L 102 H 18 127/75 H 98 Nasal Cannula 2 12/06/24 11:15 12/06/24 11:15 12/06/24 11:15 12/06/24 11:15 12/06/24 11:15 12/06/24 11:15 12/06/24 11:15 FiO2 11/23/24 08:00 Oxygen Flow Rate (L/min) 2 Oxygen Delivery Method Nasal Cannula Weight: 84.5 kg Body Mass Index (BMI) 25.9 Intake & Output: Intake and Output for Last 24 Hours 12/04/24 12/05/24 12/06/24 23:59 23:59 23:59 Intake Total 1880 / 1880 1940 / 1940 555 / 555 Output Total 4475 / 4475 2225 / 2225 1350 / 1350 Balance -2595 / -2595 -285 / -285 -795 / -795 Lab / Micro Data 12/06/24 03:40 12/06/24 03:40 Labs: Laboratory Results - last 24 hr 12/05/24 16:25: POC Glucose 170 H 12/05/24 21:17: POC Glucose 161 H 12/06/24 03:40: WBC 11.6 H, RBC 4.39 L, Hgb 12.9 L, Hct 39.4 L, MCV 89.7, MCH 29.4, MCHC 32.7, RDW Std Deviation 49.5 H, RDW Coeff of Maycol 15.3 H, Plt Count 399, MPV 9.2, Immature Gran % (Auto) 0.400, Neut % (Auto) 79.1 H, Lymph % (Auto) 12.6 L, [place] % (Auto) 6.5, Eos % (Auto) 0.9, Baso % (Auto) 0.5, Absolute Neuts (auto) 9.2 H, Absolute Lymphs (auto) 1.46, Nucleated RBC % 0, Sodium 134, Potassium 4.0, Chloride 100, Carbon Dioxide 22.3, Anion Gap 12, BUN 45 H, Creatinine 1.21 H, Estim Creat Clear Calc 65.69, Est GFR (MDRD) Non-Af 67, BUN/Creatinine Ratio 37.3 H, Glucose 160 H, Calcium 8.8 12/06/24 06:28: POC Glucose 147 H 12/06/24 11:14: POC Glucose 198 H Micro: Microbiology 12/01/24 13:20 Wound - No Site/Description Given Gram Stain - Final 12/01/24 13:20 Wound - No Site/Description Given Wound Culture - Final Staphylococcus aureus Klebsiella oxytoca Acinetobacter baumannii comple Escherichia coli Coag Negative Staph 11/24/24 14:15 Fluid - Thoracentesis Fluid Gram Stain - Final 11/24/24 14:15 Fluid - Thoracentesis Fluid Body Fluid Culture - Final Culture exhibits no growth. 11/24/24 14:15 Fluid - Thoracentesis Fluid Anaerobic Culture - Final No anaerobic bacteria isolated. 11/22/24 14:48 Blood Culture (Wb) - Left Hand Blood Culture - Final No growth in 5 days. 11/22/24 10:00 Blood Culture (Wb) - Anticubital Left Blood Culture - Final No growth in 5 days. 11/22/24 14:54 Blood Culture (Wb) - Right Hand Blood Culture - Final No growth in 5 days. 11/22/24 17:33 Wound - Ankle Gram Stain - Final 11/22/24 17:33 Wound - Ankle Wound Culture - Final Enterobacter cloacae complex Klebsiella oxytoca Enterococcus faecalis Staphylococcus aureus 11/22/24 19:01 Urine, Catheterized Urine Culture - Final Culture exhibits no growth. 11/22/24 10:00 Blood Culture (Wb) - Anticubital Right Blood Culture - Final Klebsiella oxytoca 11/22/24 22:44 Nasal Secretion MRSA (PCR) - Final 11/22/24 23:05 Mucosa - Nasopharyngeal Respiratory Panel (PCR) - Final 11/22/24 19:01 Urine Catheter - Mayers Legionella Antigen - Final 11/22/24 19:01 Urine Catheter - Mayers Streptococcus pneumoniae Antigen (M - Final Rhythm Strip Rhythm Strip: Sinus Tach Rate: 111 Ectopy: None Physical Exam Const alert and no apparent distress Constitutional Narrative: Left foot with chronic dry necrotic eschar wound to dorsal foot - there is diffuse lower extremity rubor and edema - chronic and stable, no acute changes. Assessment & Plan Assessment/Plan (1) Atherosclerosis of [place] arteries of extremities with gangrene, left leg: (2) History of diabetes mellitus: (3) Type 2 diabetes mellitus with foot ulcer: PLAN: Plan Evaluation preformed. Reviewed diagnostic data. Left foot stable. LEAS left amanda 0.72 and tbi 0.11 - discussed and reviewed with Dr. Flowers, consult has been placed and further vascular evaluation pending. MRI was ordered left foot further evaluation to rule out deep infection - he was not able to lay still, foot stable, no visible abscess or acute findings today, will continue to monitor. Culture results wound left foot - multiple organisms, patient on IV Vanc/Cefepime. Wound care left foot: aquacel ag, gauze, and kerlix. Also discussed and advised patient on importance of tobacco cessation. Podiatry will follow.
--- NOTE | 2024-12-06 15:27 | CON.PCM.SX_ITS ---
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 Foot initially appeared more ecchymotic in first few days after transfer from ICU now with dry eschar. He is known to me for recent right lower extremity intervention earlier this year with ultimately successful healing of digit wound. He also has wounds on bilateral ankle/medial lower legs that have been present for prolonged period of time that appear more consistent with venous/lymphedema distribution. [facility] Medical History History of CVA (cerebrovascular accident) Cardiac LV ejection fraction 30-35% GERD (gastroesophageal reflux disease) Anxiety High blood cholesterol Diabetes mellitus Emphysema, unspecified COPD (chronic obstructive pulmonary disease) Decreased left ventricular function Encounter for screening for malignant neoplasm of lung in current smoker with 30 pack year history or greater Stenosis of right carotid artery Insulin dependent diabetes mellitus History of non-ST elevation myocardial infarction (NSTEMI) (06/11/18) Emphysema lung Asthma Type 2 diabetes mellitus Arthritis Pancreatitis GERD (gastroesophageal reflux disease) Nicotine dependence Atherosclerosis of coronary artery of upper [place] heart without angina pectoris Hyperlipidemia Essential (primary) hypertension Home Medications ?Medication ?Instructions ?Recorded ?Last Taken ?Type blood sugar diagnostic (FreeStyle #50 ea 04/02/21 Unkn own Rx Test strips) blood-glucose meter (FreeStyle #1 ea 04/02/21 Unknown Rx System Kit) lancets 28 gauge (FreeStyle #50 ea 04/02/21 Unknown Rx Lancets) pen needle, diabetic 31 gauge x #100 ea 04/02/21 Unkno wn Rx 3/16 (1st Tier Unifine Pentips Plus) Handicap placard #1 ea 07/22/23 Unknown Rx pen needle, diabetic 31 gauge x #100 ea 10/28/23 Unkno wn Rx 5/16 (Comfort EZ Pen [place]) evolocumab 140 mg/mL subcutaneous 140 mg subcut Q2W ch olesterol #6 mL 05/09/24 09/12/24 Rx pen injector (Wolf Bernal) insulin glargine 100 unit/mL (3 20 unit subcut DAILY D iabetes 06/17/24 09/18/24 History mL) subcutaneous pen (Lantus Solostar U-100 Insulin) omeprazole 20 mg capsule,delayed 20 mg PO DAILY reflux #90 caps 09/13/24 09/18/24 Rx release fluticasone propionate 50 2 spray intranasal DAILY PRN nasal 09/18/24 Unknown History mcg/actuation nasal congestion spray,suspension (Flonase Allergy Relief) nitroglycerin 0.4 mg sublingual 0.4 mg sublingual Q5M PRN 09/27/24 Unknown Rx tablet Cardiac/Chest Pain #25 tabs aspirin 81 mg chewable tablet 81 mg PO BREAKFAST preve ntative 11/03/24 Unknown Rx #90 tabs clopidogrel 75 mg tablet 75 mg PO DAILY antiplatelet #90 11/03/24 Unknown Rx tabs dapagliflozin propanediol 10 mg 10 mg PO DAILY diabete s #90 TABLETS 11/03/24 Unknown Rx tablet (Farxiga) ezetimibe 10 mg tablet 10 mg PO DAILY cholesterol # 90 tabs 11/03/24 Unknown Rx albuterol sulfate 90 mcg/actuation 2 puff inhalation Q 4H PRN 11/04/24 Unknown Rx aerosol inhaler shortness of breath or wheez ing #6.7 grams mometasone-formoterol HFA 100 2 puff inhalation BID CO PD #13 11/04/24 Unknown Rx mcg-5 mcg/actuation aerosol grams inhaler (Dulera) furosemide 40 mg tablet 40 mg PO BID diuretic 60 day s #120 11/13/24 Unknown Rx tabs nicotine 21 mg/24 hr daily 1 patch transdermal DAILY # 56 ea 11/13/24 Unknown Rx transdermal patch sacubitril 24 mg-valsartan 26 mg 1 tab PO BID #60 tabs 11/13/24 Unknown Rx tablet (Entresto) spironolactone 25 mg tablet 25 mg PO DAILY diuretic 60 days 11/13/24 Unknown Rx #60 tabs Allergy/AdvReac Type Severity Reaction Status Date / Time amoxicillin Allergy Angioedema Verified 12/01/24 10:41 lindane Allergy Rash Verified 11/16/24 10:06 Family History Father Asthma Alcoholism Arthritis Heart disease Hypertension High cholesterol CVA (cerebral vascular accident) Lung cancer Grandfather Myocardial infarction Surgical History S/P CABG x 4 History of hernia repair History of carotid endarterectomy (01/06/14) H/O coronary artery bypass surgery (2006) History of left heart catheterization (06/11/18) Social History household members: none Smoking Status: Former smoker Tobacco: How many years used: 45 Electronic Cigarette Use: not used second hand exposure: Yes quit status: considering quitting alcohol intake: never substance use type: does not use caffeine: Yes Type: coffee Number of servings: 5 what type of physical activity do you participate in: none ROS Constitutional Constitutional: Denies chills, fever(s), frequent falls, lethargy or weakness Eyes Eyes: Denies blind spots, change in vision or loss of vision ENT HEENT: Denies bleeding gums, hoarseness or sore throat Cardiovascular Cardiovascular: Reports leg edema and leg ulcers; Denies abdominal pain, bluish discoloration of hand/feet, chest pain with activity, claudication, cold extremities, cyanosis, dyspnea on exertion, erythema on extremities, irregular heart rhythm, numbness in extremities or weakness in extremities Respiratory/Chest Respiratory/Chest: Denies cough, excessive phlegm production, shortness of breath at rest, shortness of breath with exertion or wheezing Gastrointestinal Gastrointestinal: Denies anorexia, change in stool character, constipation, diarrhea, melena or rectal bleeding Genitourinary Genitourinary: Denies dysuria or hematuria Musculoskeletal Musculoskeletal: Denies abnormal gait Integumentary Integumentary: Reports erythema, non-healing lesions and wounds Neurologic Neurologic: Denies abnormal speech, focal weakness, headache(s), loss of vision, numbness, paresthesias or sensory deficit Hematologic/Lymphatic Hematologic/Lymphatic: Denies easy bleeding, easy bruising or lymphadenopathy Physical Exam Const alert, oriented x3, no apparent distress and healthy appearing General Appearance: cooperative; Negative for combative or lethargic Orientation / Consciousness: awake Exam Limitations: no limitations HEENT Head and Scalp: normocephalic and atraumatic Eyes EOMs intact bilaterally General Eye: normal appearance of both eyes Neck full ROM General: trachea midline Resp normal respiratory effort and no use of accessory muscles Effort and Inspection: Negative for labored, stridor or audible wheezes Cardio regular rate and regular rhythm Back/Spine Cervical Spine: cervical ROM normal Extremity full ROM and normal capillary refill Skin no rashes or lesions noted Neuro oriented x3, CN's II-XII intact bilaterally, no focal motor deficits and no sensory deficits noted Psych thought process normal, cooperative, affect normal, speech normal and activity/motor behavior normal Lab / Micro Data 12/06/24 03:40 12/06/24 03:40 Labs: Laboratory Results - last 24 hr 12/05/24 16:25: POC Glucose 170 H 12/05/24 21:17: POC Glucose 161 H 12/06/24 03:40: WBC 11.6 H, RBC 4.39 L, Hgb 12.9 L, Hct 39.4 L, MCV 89.7, MCH 29.4, MCHC 32.7, RDW Std Deviation 49.5 H, RDW Coeff of Maycol 15.3 H, Plt Count 399, MPV 9.2, Immature Gran % (Auto) 0.400, Neut % (Auto) 79.1 H, Lymph % (Auto) 12.6 L, [place] % (Auto) 6.5, Eos % (Auto) 0.9, Baso % (Auto) 0.5, Absolute Neuts (auto) 9.2 H, Absolute Lymphs (auto) 1.46, Nucleated RBC % 0, Sodium 134, Potassium 4.0, Chloride 100, Carbon Dioxide 22.3, Anion Gap 12, BUN 45 H, C reatinine 1.21 H, Estim Creat Clear Calc 65.69, Est GFR (MDRD) Non-Af 67, B UN/Creatinine Ratio 37.3 H, Glucose 160 H, Calcium 8.8 12/06/24 06:28: POC Glucose 147 H 12/06/24 11:14: POC Glucose 198 H Micro: Microbiology 12/01/24 13:20 Wound - No Site/Description Given Gram Stain - Final 12/01/24 13:20 Wound - No Site/Description Given Wound Culture - Final Staphylococcus aureus Klebsiella oxytoca Acinetobacter baumannii comple Escherichia coli Coag Negative Staph Rhythm Strip Rhythm Strip: Sinus Tach Rate: 111 Ectopy: None Charges/Coding Visit Charges Inpatient E&M: 12544 Init Hosp L2
[2024-12-06] MEDS: MELATONIN 3 MG TABLET 6 MG PO (21:17)
[2024-12-07] VITALS (8 sets, daily range): BP systolic 107–117; BP diastolic 68–91; PULSE 97–120; RESP 16–20; TEMP 36.1–36.9; O2SAT 92–99; BMI 26.2
[2024-12-07 02:24] LABS: Vancomycin, Trough Level 23.8 ug/mL (5.0-15.0)
--- NOTE | 2024-12-07 02:35 | PCM.RX.CS ---
Consult Antibiotic Management Pharmacy has been consulted to manage selected antibiotic: Vancomycin Type of Intervention Type of Consult: Follow-up Suspected Infection Suspected Infection: Skin/Soft tissue Labs Labs: Sodium 134 mmol/L (133-145) 12/06/24 03:40 Potassium 4.0 mmol/L (3.3-5.1) 12/06/24 03:40 Chloride 100 mmol/L (98-108) 12/06/24 03:40 Carbon Dioxide 22.3 mmol/L (21.0-32.0) 12/06/24 03:40 Anion Gap 12 (5-15) 12/06/24 03:40 BUN 45 mg/dL (4-19) H 12/06/24 03:40 Creatinine 1.21 mg/dL (0.70-1.20) H 12/06/24 03:40 Est GFR (MDRD) Non-Af 67 (>60) 12/06/24 03:40 BUN/Creatinine Ratio 37.3 RATIO (10-20) H 12/06/24 03:40 Glucose 160 mg/dL (70-99) H 12/06/24 03:40 Vancomycin Trough 23.8 ug/mL (5.0-15.0) H 12/07/24 01:49 Random Vancomycin 16.5 ug/mL (0.0-15.0) H 12/03/24 13:00 Microbiology Microbiology: Microbiology 12/01/24 13:20 Wound - No Site/Description Given Gram Stain - Final 12/01/24 13:20 Wound - No Site/Description Given Wound Culture - Final Staphylococcus aureus Klebsiella oxytoca Acinetobacter baumannii comple Escherichia coli Coag Negative Staph 11/24/24 14:15 Fluid - Thoracentesis Fluid Gram Stain - Final 11/24/24 14:15 Fluid - Thoracentesis Fluid Body Fluid Culture - Final Culture exhibits no growth. 11/24/24 14:15 Fluid - Thoracentesis Fluid Anaerobic Culture - Final No anaerobic bacteria isolated. 11/22/24 14:48 Blood Culture (Wb) - Left Hand Blood Culture - Final No growth in 5 days. 11/22/24 10:00 Blood Culture (Wb) - Anticubital Left Blood Culture - Final No growth in 5 days. 11/22/24 14:54 Blood Culture (Wb) - Right Hand Blood Culture - Final No growth in 5 days. 11/22/24 17:33 Wound - Ankle Gram Stain - Final 11/22/24 17:33 Wound - Ankle Wound Culture - Final Enterobacter cloacae complex Klebsiella oxytoca Enterococcus faecalis Staphylococcus aureus 11/22/24 19:01 Urine, Catheterized Urine Culture - Final Culture exhibits no growth. 11/22/24 10:00 Blood Culture (Wb) - Anticubital Right Blood Culture - Final Klebsiella oxytoca 11/22/24 22:44 Nasal Secretion MRSA (PCR) - Final 11/22/24 23:05 Mucosa - Nasopharyngeal Respiratory Panel (PCR) - Final 11/22/24 19:01 Urine Catheter - Mayers Legionella Antigen - Final 11/22/24 19:01 Urine Catheter - Mayers Streptococcus pneumoniae Antigen (M - Final Dosing Weight Weight used for dosin.5 kg Estimated Creatinine Clearance Estimated Creatinine Clearance: 66 Goal Trough Goal Trough: 15-20 mcg/mL Pharmacy Plan for Drug Dosing Pharmacy Plan for Drug Dosing: Vancomycin trough level was high at 23.8. Due to previous dose being hung late by 2.5hrs, this represents only a 9.5hr level. However, it is still too high to continue immediate dosing. A random vanco level will be drawn in twelve hours and further orders will be determined from that result. Pharmacy Service will continue to monitor and adjust dosing as required. Follow-Up Labs Follow-Up Labs: Trough: Vancomycin (random) Date/Time Labs Ordered Labs to be done on [date and time ordered]: 12/07/24 @1330 (random)
[2024-12-07] MEDS: 0.9% Saline Lock 10 ML Syringe IV ×3 (06:16→20:36)
[2024-12-07] MEDS: Cefepime HCl 1 GM in 0.9% Normal Saline (50mL MB+) 50 ML IV ×3 (06:18→20:30)
[2024-12-07] MEDS: Senna/Docusate Sodium 1 Tablet 2 TABLET PO (08:26)
--- NOTE | 2024-12-07 09:25 | WOUNDNOTE ---
wound photo: left dorsal foot
--- NOTE | 2024-12-07 09:26 | WOUNDNOTE ---
wound photo: left lower leg
--- NOTE | 2024-12-07 09:27 | WOUNDNOTE ---
wound photo: left elbow
[2024-12-07 09:32] LABS: Hematocrit 40.3 % (40-54); Hemoglobin 13.1 g/dL (13.0-16.5); Immature Granulocytes Count 0.040 X10^3/uL (0.0-0.0); Mean Corp Hgb Conc 32.5 g/dL (32-36); Mean Corpuscular Volume 89.8 fL (80-94); Mean Platelet Vol. 9.4 fl (6.2-12.0); NRBC Flagged by Analyzer 0 % (0-5); Platelet Count 402 K/mm3 (150-450); RBC Distribution Width CV 15.5 % (11.6-14.6); RBC Distribution Width SD 50.4 fl (35.1-43.9); Red Blood Count 4.49 M/mm3 (4.6-6.2); White Blood Count 9.6 K/mm3 (4.4-11.0)
[2024-12-07] MEDS: Insulin Glargine-YFGN 100 UNIT/ML Pen 20 UNIT SC (09:35)
[2024-12-07 10:35] LABS: Anion Gap 13 (5-15); BUN 39 mg/dL (4-19); BUN/Creat Ratio 34.8 RATIO (10-20); Calcium,Total 8.8 mg/dL (7.6-11.0); Carbon Dioxide 25.0 mmol/L (21.0-32.0); Chloride 96 mmol/L (98-108); Estimated Creatinine Clearance 70.97 ml/min (50-250); Glucose 93 mg/dL (70-99); Potassium 4.0 mmol/L (3.3-5.1)
--- NOTE | 2024-12-07 12:32 | CASEMGMT ---
Discharge Planning Updates sent to [facility] with request to submit for new precert. Tiffany Perdomo DC Planning Asst.
--- NOTE | 2024-12-07 13:15 | PCM.PROGNOTE ---
Subjective Subjective Patrient seen and examined with his nurse by his bedside. He had no active complaints. Review of systems is otherwise negative. Vascular surgery on board, for angiogram next week. I spoke to Dr Flowers, and he is ok with patient being discharged and be brought back once the angiogram is scheduled. Review of systems is otherwise negative. Objective Data Objective Data Vital Signs: Vital Signs Temp Pulse Resp BP Pulse Ox O2 Del Method O2 Flow Rate 98.0 F 97 18 107/91 H 98 Nasal Cannula 2 12/07/24 11:30 12/07/24 12:43 12/07/24 12:43 12/07/24 11:30 12/07/24 11:30 12/07/24 11:30 12/07/24 11:30 FiO2 25 11/23/24 08:00 Oxygen Flow Rate (L/min) 2 Oxygen Delivery Method Nasal Cannula Weight: 187 lb 9.814 oz Body Mass Index (BMI) 26.2 Intake & Output: Intake and Output for Last 24 Hours 12/05/24 12/06/24 12/07/24 23:59 23:59 23:59 Intake Total 1940 / 1940 1400 / 1400 410 / 410 Output Total 2225 / 2225 3750 / 3750 1350 / 1350 Balance -285 / -285 -2350 / -2350 -940 / -940 Lab / Micro Data 12/07/24 08:25 12/07/24 08:25 Labs: Laboratory Results - last 24 hr 12/06/24 16:25: POC Glucose 147 H 12/06/24 21:19: POC Glucose 125 H 12/07/24 01:49: Vancomycin Trough 23.8 H 12/07/24 06:21: POC Glucose 94 12/07/24 08:25: WBC 9.6, RBC 4.49 L, Hgb 13.1, Hct 40.3, MCV 89.8, MCH 29.2, MCHC 32.5, RDW Std Deviation 50.4 H, RDW Coeff of Maycol 15.5 H, Plt Count 402, MPV 9.4, Immature Gran % (Auto) 0.400, Neut % (Auto) 77.9 H, Lymph % (Auto) 12.9 L, [place] % (Auto) 6.5, Eos % (Auto) 1.8, Baso % (Auto) 0.5, Absolute Neuts (auto) 7.5, Absolute Lymphs (auto) 1.24, Nucleated RBC % 0, Sodium 134, Potassium 4.0, Chloride 96 L, Carbon Dioxide 25.0, Anion Gap 13, BUN 39 H, Creatinine 1.12, Estim Creat Clear Calc 70.97, Est GFR (MDRD) Non-Af 73, BUN/Creatinine Ratio 34.8 H, Glucose 93, Calcium 8.8 12/07/24 11:30: POC Glucose 188 H Micro: Microbiology 12/01/24 13:20 Wound - No Site/Description Given Gram Stain - Final 12/01/24 13:20 Wound - No Site/Description Given Wound Culture - Final Staphylococcus aureus Klebsiella oxytoca Acinetobacter baumannii comple Escherichia coli Coag Negative Staph 11/24/24 14:15 Fluid - Thoracentesis Fluid Gram Stain - Final 11/24/24 14:15 Fluid - Thoracentesis Fluid Body Fluid Culture - Final Culture exhibits no growth. 11/24/24 14:15 Fluid - Thoracentesis Fluid Anaerobic Culture - Final No anaerobic bacteria isolated. 11/22/24 14:48 Blood Culture (Wb) - Left Hand Blood Culture - Final No growth in 5 days. 11/22/24 10:00 Blood Culture (Wb) - Anticubital Left Blood Culture - Final No growth in 5 days. 11/22/24 14:54 Blood Culture (Wb) - Right Hand Blood Culture - Final No growth in 5 days. 11/22/24 17:33 Wound - Ankle Gram Stain - Final 11/22/24 17:33 Wound - Ankle Wound Culture - Final Enterobacter cloacae complex Klebsiella oxytoca Enterococcus faecalis Staphylococcus aureus 11/22/24 19:01 Urine, Catheterized Urine Culture - Final Culture exhibits no growth. 11/22/24 10:00 Blood Culture (Wb) - Anticubital Right Blood Culture - Final Klebsiella oxytoca 11/22/24 22:44 Nasal Secretion MRSA (PCR) - Final 11/22/24 23:05 Mucosa - Nasopharyngeal Respiratory Panel (PCR) - Final 11/22/24 19:01 Urine Catheter - Mayers Legionella Antigen - Final 11/22/24 19:01 Urine Catheter - Mayers Streptococcus pneumoniae Antigen (M - Final Radiography Diagnostic Testing: Radiology Impression Foot X-Ray 12/05/24 17:18 IMPRESSION: Soft tissue edema and swelling. Reading Location: [place] [id number] Rhythm Strip Rhythm Strip: Sinus Tach Rate: 111 Ectopy: None Physical Exam Const alert, oriented x3 and no apparent distress General Appearance: cooperative HEENT normocephalic, head/scalp atraumatic, moist oral mucous membranes and oropharynx normal Eyes PERRL, EOMs intact bilaterally and conjunctivae normal Neck no lymphadenopathy, supple and no JVD Lymph Lymphatic: no lymphedema noted Resp Resp Narrative: on room air. has mildly diminished breath sounds bilaterally, no wheezes or crackles. on 2L of oxytgen by nasal canula Cardio regular rate, regular rhythm, S1 normal heart sound, S2 normal heart sound and no murmurs GI normal to inspection, nondistended, normoactive bowel sounds, soft to palpation, non-tender and non-distended Extremity Extremity Narrative: LLE wrapped in bandage. Skin Skin Narrative: LLE and foot wrapped in bandage. Neuro oriented x3, CN's II-XII intact bilaterally, moves all extremities, no focal motor deficits and no sensory deficits noted Sensorium / Orientation: awake, alert, oriented to person and oriented to place Motor Exam: general weakness Psych thought process normal, cooperative and affect normal Psych Narrative: weak, frail Assessment & Plan Assessment/Plan (1) Severe sepsis: (2) Lower extremity edema: PLAN: Plan #Septic shock due to lower extremity cellulitis and pneumonia with bilateal pleural efffusions Septic shock and pneumonia have resolved. Patient now on room air. He had Klebsiella bacteremia. Completed 7 days of IV antibiotics. ID was on board. However he was started back on IV cefepime due to concerns for infection of his left foot. #Left lower extremity cellulitis/peripheral artery disease Dorsum of left foot is blackened with surrounding erythema. He did have ankle-brachial index done which showed evidence of moderate peripheral artery disease on the left with SUZY of 0.72. SUZY on the right was 0.94. He is on IV cefepime. Podiatry consulted and thinks this is likely due to peripheral artery disease. They have ordered an MRI of the foot to evaluate for any infection and vascular surgery has been consulted. Vascular surgery reviewed him and recommends angiogram to be done next week. Continue aspirin and high intensity statin. WIll therefore DC IV antibiotics. #Acute heart failure with reduced ejection fraction: EF is 30 to 35%. Off Lasix drip now as he was hypotensive. Currently on room air and stable. #Bilateral pleural effusions: He had thoracentesis done which showed that was a transudative fluid. He had 1.15 L of fluid removed via diagnostic thoracentesis on 11/25/2024 #Delirium and altered mental status: Largely improved. Patient doing much better. Will need follow-up on outpatient basis for evaluation for dementia. #Type 2 diabetes mellitus: On Lantus. Insulin sliding scale. Checks ACHS. Also on dapagliflozin. #CAD: On aspirin and Plavix as well as Repatha and high intensity statin #Debility and weakness with failure to thrive: PT OT on board. Fall precautions. DVT prophylaxis: SCDs Disposition: vascular surgery ok with him being dc'd home Charges/Coding Visit Charges Inpatient E&M: 68250 Subs Hosp L2
--- NOTE | 2024-12-07 13:30 | CASEMGMT ---
VICKI RIVERA updated by hospitalist that vascular is ok with patient discharge to [facility] and returning to for angiogram on 12/13/24. VICKI RIVERA updated discharge planning associate to send updated clinicals and ask [facility] to submit for precert. VICKI RIVERA called daughter Christine to update regarding discharge plan. Christine agreeable to plan and had no further questions. VICKI RIVERA informed daughter that CM will inform her when we get approval and transport setup for patient to go to [facility] [place]. Daughter voiced appreciation.
--- NOTE | 2024-12-07 13:55 | PCM.PN.ID ---
Physical Exam Narrative Feeling better, foot less sore/red. No fever, no n/v/d. Const alert and no apparent distress General Appearance: cooperative Resp normal air movement and clear to auscultation bilaterally Cardio regular rate and regular rhythm GI soft to palpation, non-tender and non-distended Extremity General Extremity: edema Skin Skin Narrative: L foot wrapped ID ID: Route of nutrition/ use of supplements: [] Nutritional Intake: [] IV Site: [] Mayers Catheter: [] Assessment & Plan Assessment/Plan (1) Severe sepsis: PLAN: For BLE cellulitis, improving on vanc/cefepime. L ankle wound cx with enterobacter, klebs, e faecalis, and MSSA. Redness improved, being seen by vascular and podiatry Will follow (2) Bacteremia due to Gram-negative bacteria:
[2024-12-07 14:25] LABS: Vancomycin, Random Level 17.5 ug/mL (0.0-15.0)
--- NOTE | 2024-12-07 14:42 | PHA.PHARE_ITS ---
Consult Antibiotic Management Pharmacy has been consulted to manage selected antibiotic: Vancomycin Type of Intervention Type of Consult: Follow-up Suspected Infection Suspected Infection: Skin/Soft tissue Labs Labs: Sodium 134 mmol/L (133-145) 12/07/24 08:25 Potassium 4.0 mmol/L (3.3-5.1) 12/07/24 08:25 Chloride 96 mmol/L (98-108) L 12/07/24 08:25 Carbon Dioxide 25.0 mmol/L (21.0-32.0) 12/07/24 08:25 Anion Gap 13 (5-15) 12/07/24 08:25 BUN 39 mg/dL (4-19) H 12/07/24 08:25 Creatinine 1.12 mg/dL (0.70-1.20) 12/07/24 08:25 Est GFR (MDRD) Non-Af 73 (>60) 12/07/24 08:25 BUN/Creatinine Ratio 34.8 RATIO (10-20) H 12/07/24 08:25 Glucose 93 mg/dL (70-99) 12/07/24 08:25 Vancomycin Trough 23.8 ug/mL (5.0-15.0) H 12/07/24 01:49 Random Vancomycin 17.5 ug/mL (0.0-15.0) H 12/07/24 13:45 Microbiology Microbiology: Microbiology 12/01/24 13:20 Wound - No Site/Description Given Gram Stain - Final 12/01/24 13:20 Wound - No Site/Description Given Wound Culture - Final Staphylococcus aureus Klebsiella oxytoca Acinetobacter baumannii comple Escherichia coli Coag Negative Staph 11/24/24 14:15 Fluid - Thoracentesis Fluid Gram Stain - Final 11/24/24 14:15 Fluid - Thoracentesis Fluid Body Fluid Culture - Final Culture exhibits no growth. 11/24/24 14:15 Fluid - Thoracentesis Fluid Anaerobic Culture - Final No anaerobic bacteria isolated. 11/22/24 14:48 Blood Culture (Wb) - Left Hand Blood Culture - Final No growth in 5 days. 11/22/24 10:00 Blood Culture (Wb) - Anticubital Left Blood Culture - Final No growth in 5 days. 11/22/24 14:54 Blood Culture (Wb) - Right Hand Blood Culture - Final No growth in 5 days. 11/22/24 17:33 Wound - Ankle Gram Stain - Final 11/22/24 17:33 Wound - Ankle Wound Culture - Final Enterobacter cloacae complex Klebsiella oxytoca Enterococcus faecalis Staphylococcus aureus 11/22/24 19:01 Urine, Catheterized Urine Culture - Final Culture exhibits no growth. 11/22/24 10:00 Blood Culture (Wb) - Anticubital Right Blood Culture - Final Klebsiella oxytoca 11/22/24 22:44 Nasal Secretion MRSA (PCR) - Final 11/22/24 23:05 Mucosa - Nasopharyngeal Respiratory Panel (PCR) - Final 11/22/24 19:01 Urine Catheter - Mayers Legionella Antigen - Final 11/22/24 19:01 Urine Catheter - Mayers Streptococcus pneumoniae Antigen (M - Final Estimated Creatinine Clearance Estimated Creatinine Clearance: 71 Goal Trough Goal Trough: 15-20 mcg/mL Pharmacy Plan for Drug Dosing Pharmacy Plan for Drug Dosing: Pharmacy Service will continue to monitor and adjust dosing as required. VANCOMYCIN LEVEL RECEIVED Current Vancomycin Dose: 750 MG Q12H Number of Doses Received: MANY Vancomycin Level: 17.5 Hours Since Last Dose: 22 Renal Function: SCr: 1.12, CrCl: 71 Renal Function Trend: IMPROVING Vancomycin Plan/Comments: DECREASING DOSE TO 1250 MG Q24H WITH INITIAL TROUGH HIGH AND RANDOM LEVEL 21 HOURS AFTER LAST DOSE OF 17.5 Pending Level: 12/10/24 @ 1530 Date/Time Labs Ordered Labs to be done on [date and time ordered]: 12/10/24 @ 1533
[2024-12-07] MEDS: Vancomycin HCl 1,250 MG in 0.9% Normal Saline (250mL Bag) 250 ML 167 MG IV (15:10)
[2024-12-07] MEDS: MELATONIN 3 MG TABLET 6 MG PO (20:31)
[2024-12-08 02:13] VITALS: BMI 26.2
[2024-12-08 02:30] VITALS: BP 113/75; PULSE 112; RESP 18; TEMP 36.3; O2SAT 91
[2024-12-08 03:04] VITALS: BMI 26.5
[2024-12-08] MEDS: Cefepime HCl 1 GM in 0.9% Normal Saline (50mL MB+) 50 ML IV (05:15)
[2024-12-08 05:54] LABS: Hematocrit 42.4 % (40-54); Hemoglobin 13.8 g/dL (13.0-16.5); Immature Granulocytes Count 0.030 X10^3/uL (0.0-0.0); Mean Corp Hgb Conc 32.5 g/dL (32-36); Mean Corpuscular Volume 89.1 fL (80-94); Mean Platelet Vol. 9.0 fl (6.2-12.0); NRBC Flagged by Analyzer 0 % (0-5); Platelet Count 455 K/mm3 (150-450); RBC Distribution Width CV 15.7 % (11.6-14.6); RBC Distribution Width SD 50.1 fl (35.1-43.9); Red Blood Count 4.76 M/mm3 (4.6-6.2); White Blood Count 11.9 K/mm3 (4.4-11.0)
[2024-12-08 06:22] LABS: Anion Gap 16 (5-15); BUN 38 mg/dL (4-19); BUN/Creat Ratio 29.6 RATIO (10-20); Calcium,Total 9.1 mg/dL (7.6-11.0); Carbon Dioxide 21.9 mmol/L (21.0-32.0); Chloride 98 mmol/L (98-108); Estimated Creatinine Clearance 61.61 ml/min (50-250); Glucose 115 mg/dL (70-99); Potassium 4.4 mmol/L (3.3-5.1)
[2024-12-08 06:45] VITALS: O2SAT 90
[2024-12-08 08:30] VITALS: BP 148/80; PULSE 80; RESP 16; TEMP 36.6; O2SAT 96
[2024-12-08 08:41] VITALS: O2SAT 96
[2024-12-08 08:42] VITALS: O2SAT 98
[2024-12-08] MEDS: Senna/Docusate Sodium 1 Tablet 2 TABLET PO (08:42)
[2024-12-08] MEDS: Insulin Glargine-YFGN 100 UNIT/ML Pen 20 UNIT SC (08:48)
--- NOTE | 2024-12-08 10:30 | PN_ITS ---
Subjective Subjective Patient seen and examined. He had no complaints today. HE had no active complaints. REview of systems is otherwise negative. He is on 2L of oxygen. Objective Data Objective Data Vital Signs: Vital Signs Temp Pulse Resp BP Pulse Ox O2 Del Method O2 Flow Rate 97.3 F L 112 H 18 113/75 98 Nasal Cannula 2 12/08/24 02:30 12/08/24 02:30 12/08/24 02:30 12/08/24 02:30 12/08/24 08:42 12/08/24 08:15 12/08/24 08:42 FiO2 25 11/23/24 08:00 Oxygen Flow Rate (L/min) 2 Oxygen Delivery Method Nasal Cannula Weight: 190 lb 7.67 oz Body Mass Index (BMI) 26.5 Intake & Output: Intake and Output for Last 24 Hours 12/06/24 12/07/24 12/08/24 23:59 23:59 23:59 Intake Total 1400 / 1400 1145 / 1145 50 / 50 Output Total 3750 / 3750 1750 / 2250 500 / 500 Balance -2350 / -2350 -605 / -1105 -450 / -450 Lab / Micro Data 12/08/24 05:42 12/08/24 05:42 Labs: Laboratory Results - last 24 hr 11/24/24 14:15: Miscellaneous Cytology SEE PATHOLOGY REPORT 12/07/24 08:25: Sodium 134, Potassium 4.0, Chloride 96 L, Carbon Dioxide 25.0, Anion Gap 13, BUN 39 H, Creatinine 1.12, Estim Creat Clear Calc 70.97, Est GFR (MDRD) Non-Af 73, BUN/Creatinine Ratio 34.8 H, Glucose 93, Calcium 8.8 12/07/24 11:30: POC Glucose 188 H 12/07/24 13:45: Random Vancomycin 17.5 H 12/07/24 16:37: POC Glucose 140 H 12/07/24 20:33: POC Glucose 151 H 12/08/24 05:42: WBC 11.9 H, RBC 4.76, Hgb 13.8, Hct 42.4, MCV 89.1, MCH 29.0, MCHC 32.5, RDW Std Deviation 50.1 H, RDW Coeff of Maycol 15.7 H, Plt Count 455 H, MPV 9.0, Immature Gran % (Auto) 0.300, Neut % (Auto) 79.7 H, Lymph % (Auto) 11.4 L, Ransom % (Auto) 7.8, Eos % (Auto) 0.3, Baso % (Auto) 0.5, Absolute Neuts (auto) 9.5 H, Absolute Lymphs (auto) 1.36, Nucleated RBC % 0, Sodium 135, Potassium 4.4, Chloride 98, Carbon Dioxide 21.9, Anion Gap 16 H, BUN 38 H, Creatinine 1.29 H, Estim Creat Clear Calc 61.61, Est GFR (MDRD) Non-Af 62, BUN/Creatinine Ratio 29.6 H, Glucose 115 H, Calcium 9.1 12/08/24 08:37: POC Glucose 116 H Micro: Microbiology 12/01/24 13:20 Wound - No Site/Description Given Gram Stain - Final 12/01/24 13:20 Wound - No Site/Description Given Wound Culture - Final Staphylococcus aureus Klebsiella oxytoca Acinetobacter baumannii comple Escherichia coli Coag Negative Staph 11/24/24 14:15 Fluid - Thoracentesis Fluid Gram Stain - Final 11/24/24 14:15 Fluid - Thoracentesis Fluid Body Fluid Culture - Final Culture exhibits no growth. 11/24/24 14:15 Fluid - Thoracentesis Fluid Anaerobic Culture - Final No anaerobic bacteria isolated. 11/22/24 14:48 Blood Culture (Wb) - Left Hand Blood Culture - Final No growth in 5 days. 11/22/24 10:00 Blood Culture (Wb) - Anticubital Left Blood Culture - Final No growth in 5 days. 11/22/24 14:54 Blood Culture (Wb) - Right Hand Blood Culture - Final No growth in 5 days. 11/22/24 17:33 Wound - Ankle Gram Stain - Final 11/22/24 17:33 Wound - Ankle Wound Culture - Final Enterobacter cloacae complex Klebsiella oxytoca Enterococcus faecalis Staphylococcus aureus 11/22/24 19:01 Urine, Catheterized Urine Culture - Final Culture exhibits no growth. 11/22/24 10:00 Blood Culture (Wb) - Anticubital Right Blood Culture - Final Klebsiella oxytoca 11/22/24 22:44 Nasal Secretion MRSA (PCR) - Final 11/22/24 23:05 Mucosa - Nasopharyngeal Respiratory Panel (PCR) - Final 11/22/24 19:01 Urine Catheter - Mayers Legionella Antigen - Final 11/22/24 19:01 Urine Catheter - Mayers Streptococcus pneumoniae Antigen (M - Final Rhythm Strip Rhythm Strip: Sinus Tach Rate: 111 Ectopy: None Physical Exam Const alert, oriented x3 and no apparent distress Constitutional Narrative: Up in chair. General Appearance: cooperative HEENT normocephalic, head/scalp atraumatic, moist oral mucous membranes and oropharynx normal Eyes PERRL, EOMs intact bilaterally and conjunctivae normal Neck supple and no JVD Lymph Lymphatic: no lymphedema noted Resp Resp Narrative: on room air. has mildly diminished breath sounds bilaterally, no wheezes or crackles. on 2L of oxytgen by nasal canula Cardio regular rate, regular rhythm, S1 normal heart sound, S2 normal heart sound and no murmurs GI normal to inspection, nondistended, normoactive bowel sounds, soft to palpation, non-tender and non-distended Extremity normal capillary refill, no clubbing, cyanosis or edema and no calf tenderness Extremity Narrative: LLE wrapped in bandage. Skin Skin Narrative: LLE and foot wrapped in bandage. Neuro oriented x3, moves all extremities, no focal motor deficits and no sensory deficits noted Sensorium / Orientation: awake, alert, oriented to person and oriented to place Motor Exam: general weakness Psych thought process normal, cooperative and affect normal Psych Narrative: weak, frail Mood & Affect: flat affect Assessment & Plan Assessment/Plan (1) Severe sepsis: (2) Lower extremity edema: PLAN: Plan #Septic shock due to lower extremity cellulitis and pneumonia with bilateal pleural efffusions * Septic shock and pneumonia have resolved. Patient now on room air. * He had Klebsiella bacteremia. Completed 7 days of IV antibiotics. ID was on board. However he was started back on IV cefepime due to concerns for infection of his left foot. * will dc the cefepime. * * #Left lower extremity cellulitis/peripheral artery disease * Dorsum of left foot is blackened with surrounding erythema. He did have ankle-brachial index done which showed evidence of moderate peripheral artery disease on the left with SUZY of 0.72. SUZY on the right was 0.94. * He is on IV cefepime. * Podiatry consulted and thinks this is likely due to peripheral artery disease. They have ordered an MRI of the foot to evaluate for any infection and vascular surgery has been consulted. * Vascular surgery reviewed him and recommends angiogram to be done next week. Continue aspirin and high intensity statin. * WIll therefore DC IV antibiotics. * #Acute heart failure with reduced ejection fraction: EF is 30 to 35%. Off Lasix now as he was hypotensive. Currently on room air and stable. #Bilateral pleural effusions: He had thoracentesis done which showed that was a transudative fluid. He had 1.15 L of fluid removed via diagnostic thoracentesis on 11/25/2024 #Delirium and altered mental status: Largely improved. Patient doing much better. Will need follow-up on outpatient basis for evaluation for dementia. #Type 2 diabetes mellitus: On Lantus. Insulin sliding scale. Checks ACHS. Also on dapagliflozin. #CAD: On aspirin and Plavix as well as Repatha and high intensity statin #Debility and weakness with failure to thrive: PT OT on board. Fall precautions. DVT prophylaxis: SCDs Disposition: vascular surgery ok with him being dc'd and brought back for the angiogram next week. Awaiting placement in SNF Charges/Coding Visit Charges Inpatient E&M: 59717 Subs Hosp L2
--- NOTE | 2024-12-08 10:33 | PCM.PN.ID ---
Physical Exam Narrative Feeling ok, no fever, no n/v/d Const alert and no apparent distress General Appearance: cooperative Resp normal air movement and clear to auscultation bilaterally Cardio regular rate and regular rhythm GI soft to palpation, non-tender and non-distended Skin Skin Narrative: L foot wrapped ID ID: Route of nutrition/ use of supplements: [] Nutritional Intake: [] IV Site: [] Mayers Catheter: [] Assessment & Plan Assessment/Plan (1) Severe sepsis: PLAN: For BLE cellulitis, will change to vanc/becky. L ankle wound cx with enterobacter, klebs, AcB, e faecalis, and MSSA. Redness improved, being seen by vascular and podiatry Will follow (2) Bacteremia due to Gram-negative bacteria:
--- NOTE | 2024-12-08 10:55 | CASEMGMT ---
Gregor has obtained new auth to admit. VICKI CM updated. Tiffany Perdomo DC Planning Asst.
[2024-12-08 14:30] VITALS: BP 115/86; PULSE 109; RESP 17; TEMP 36.6; O2SAT 96
[2024-12-08 14:35] VITALS: BMI 26.5
--- NOTE | 2024-12-08 14:46 | TREXTCAR_ITS ---
Diet Diet Order/Speech Therapy: INPATIENT Hospital Diet / Speech Therapy Order(s) 11/22/24 14:08 Diet: Cardiac: Calorie-Controlled Food consistency:: Easy to Chew Liquid Consistency:: Regular/Thin Type of Dietary Supplement:: Gui Diet Comments: orange gui with breakfast and dinner How many daily calories?: 2000 calorie Routine Orders/Code Status Enema Type: Fleetz Enema Frequency: Daily PRN Suppository Type: Dulcolax 10mg Suppository Frequency: Daily PRN DC O2, CPAP, BIPAP needs Home O2 Discharge instructions: Yes Type of respiratory needs?: Oxygen Oxygen frequency: Continuous Continuous oxygen liters per minute: 2 Wound(s) left LE: Wound Type: Stasis Ulcer Dressing Change: Aquacel right dent: Wound Type: weeping areas Dressing Change: Aquacel left dorsal foot: Wound Type: black eschar Dressing Change: Aquacel left elbow: Wound Type: Pressure Injury Dressing Change: applied elbow protector Therapies Weight Bearing: Weight bearing as tolerated Physical Therapy: Eval and Treat Occupational Therapy: Eval and Treat Problem/Diagnosis (1) Severe sepsis: Status: Acute Code(s): A41.9 - Sepsis, unspecified organism; R65.20 - Severe sepsis without septic shock (2) Lower extremity edema: Status: Acute Code(s): R60.0 - Localized edema Plan #Septic shock due to lower extremity cellulitis and pneumonia with bilateal pleural efffusions * Septic shock and pneumonia have resolved. Patient now on room air. * He had Klebsiella bacteremia. Completed 7 days of IV antibiotics. ID was on board. However he was started back on IV cefepime due to concerns for infection of his left foot. * will dc the cefepime. * * #Left lower extremity cellulitis/peripheral artery disease * Dorsum of left foot is blackened with surrounding erythema. He did have ankle-brachial index done which showed evidence of moderate peripheral artery disease on the left with SUZY of 0.72. SUZY on the right was 0.94. * He is on IV cefepime. * Podiatry consulted and thinks this is likely due to peripheral artery disease. They have ordered an MRI of the foot to evaluate for any infection and vascular surgery has been consulted. * Vascular surgery reviewed him and recommends angiogram to be done next week. Continue aspirin and high intensity statin. * WIll therefore DC IV antibiotics. * #Acute heart failure with reduced ejection fraction: EF is 30 to 35%. Off Lasix now as he was hypotensive. Currently on room air and stable. #Bilateral pleural effusions: He had thoracentesis done which showed that was a transudative fluid. He had 1.15 L of fluid removed via diagnostic thoracentesis on 11/25/2024 #Delirium and altered mental status: Largely improved. Patient doing much better. Will need follow-up on outpatient basis for evaluation for dementia. #Type 2 diabetes mellitus: On Lantus. Insulin sliding scale. Checks ACHS. Also on dapagliflozin. #CAD: On aspirin and Plavix as well as Repatha and high intensity statin #Debility and weakness with failure to thrive: PT OT on board. Fall precautions. DVT prophylaxis: SCDs Disposition: vascular surgery ok with him being dc'd and brought back for the angiogram next week. Awaiting placement in SNF Allergies/Procedures Done in Hospital Allergies amoxicillin Allergy (Verified 12/01/24 10:41) Angioedema tolerated cefepime 11/2024 lindane Allergy (Verified 11/16/24 10:06) Rash Procedures: 2-D Echocardiogram Type of Care/Length of Stay Estimated LOS: Convalescent Care Less Than 30 days Type of Care Needed: Skilled Rehab Potential: Fair Prognosis: Fair Additional Orders/Day of Discharge Day of Discharge: 12/08/24 Dietary and Speech Recommendations Dietitian Recommendations/Changes: Continue cardiac; 2000 calorie controlled diet with easy to chew consistency due to difficulty chewing tough meats. Will order pineapple coconut gui with breakfast and dinner to promote wound healing. Will monitor weight trends. Discharge Plan Admission Admit Date/Time: 11/22/24 13:04 Primary Reason for Your Visit: LLE cellulitis, acute heart failure, peripheral artery disease Attending Provider: Flori Johnson Primary Care Provider: Ant Nuñez Consulting Providers: Jeffery Del Valle; Flori Johnson; Saúl Dorado; Gab Simons; Saúl Flowers Instructions Patient Instructions: Peripheral Angiography, PAD, PAD Dc, Ankle Brachial Index (SUZY) Test Discharge Orders/Prescriptions Prescriptions: New midodrine 5 mg Tablet 10 mg PO TIDCM 30 Days Qty: 180 1RF levofloxacin 500 mg tablet 500 mg PO DAILY Qty: 10 0RF doxycycline hyclate 100 mg tablet 100 mg PO BID Qty: 10 0RF Continued (DME) Handicap placard See Rx Instructions .Route .MEDSUPPLY Qty: 1 0RF Rx Instructions: Due to COPD, unable to walk 50 yards without assistance, duration 5 years. (DME) pen needle, diabetic [Comfort EZ Pen [place]] 31 gauge x 5/16 needle See Rx Instructions .Route Qty: 100 3RF Rx Instructions: As directed nitroglycerin 0.4 mg tablet, sublingual 0.4 mg Sublingual Q5M PRN (Reason: Cardiac/Chest Pain) Qty: 25 1RF albuterol sulfate 90 mcg/actuation HFA aerosol inhaler 2 puff inhalation Q4H PRN (Reason: shortness of breath or wheezing) Qty: 6.7 1RF Dulera 100-5 mcg/actuation HFA aerosol inhaler 2 puff inhalation BID Qty: 13 1RF clopidogrel 75 mg tablet 75 mg PO DAILY Qty: 90 3RF ezetimibe 10 mg tablet 10 mg PO DAILY Qty: 90 3RF aspirin 81 mg tablet,chewable 81 mg PO BREAKFAST Qty: 90 3RF dapagliflozin propanediol [Farxiga] 10 mg tablet 10 mg PO DAILY Qty: 90 3RF fluticasone propionate [Flonase Allergy Relief] 50 mcg/actuation spray,suspension 2 spray intranasal DAILY PRN (Reason: nasal congestion) Rx Instructions: administer into each nostril furosemide 40 mg tablet 40 mg PO BID 60 Days Qty: 120 3RF nicotine 21 mg/24 hr patch 24 hour 1 patch transdermal DAILY Qty: 56 0RF insulin glargine [Lantus Solostar U-100 Insulin] 100 unit/mL (3 mL) insulin pen 20 unit subcut DAILY (DME) FreeStyle Test Strip See Rx Instructions .ROUTE .MEDSUPPLY Qty: 50 11RF Rx Instructions: check blood glucose daily (DME) blood-glucose meter [FreeStyle System Kit] Kit See Rx Instructions .ROUTE .MEDSUPPLY Qty: 1 0RF Rx Instructions: check blood glucose daily for type 2 DM (DME) lancets [FreeStyle Lancets] 28 gauge misc See Rx Instructions .ROUTE .MEDSUPPLY Qty: 50 11RF Rx Instructions: Check blood glucose daily for type 2 DM (DME) pen needle, diabetic [1st Tier Unifine Pentips Plus] 31 gauge x 3/16 needle See Rx Instructions .ROUTE .MEDSUPPLY Qty: 100 1RF Rx Instructions: use with lantus nightly Repatha SureClick 140 mg/mL pen injector 140 mg subcut Q2W Qty: 6 3RF omeprazole 20 mg capsule,delayed release(DR/EC) 20 mg PO DAILY Qty: 90 1RF Discontinued sacubitril-valsartan [Entresto] 24-26 mg Tablet 1 tab PO BID Qty: 60 0RF spironolactone 25 mg tablet 25 mg PO DAILY 60 Days Qty: 60 3RF Referrals / Follow Up: Ant Nuñez DO [Primary Care Provider] - Within 1 Week Saúl Flowers MD [Med Staff - Active Staff] - Within 1 Week Disposition Disposition (needs filled in before D/C Order can be placed): [facility] Facility
--- NOTE | 2024-12-08 14:47 | DS.PCM_ITS ---
Providers Date of Admission: 11/22/24 Date of Discharge: 12/08/24 Primary Care Physician: Dr. Ant Nuñez, Consultations 11/22/24 14:09 Consult: Infectious Disease Routine Consulting Provider: Jeffery Del Valle Reason for Consult: sepsis due to probable diabetic foot infection EMERGENT Consult: No MD Notified: Yes Date Notified: 11/22/24 Time Notified: 14:24 Method of Notification: Text 11/22/24 14:12 Consult: Onc/Wound/stencil inspector Routine Comment: 11/22/24 22:37 Consult: Pipe Out Worker / Pulmonary Medicine Routine Consulting Provider: Intensivists/Pulmonary Med Reason for Consult: Resp distress, HF Exac, ? PNA EMERGENT Consult: No MD Notified: Yes Date Notified: 11/22/24 Time Notified: 21:53 Method of Notification: Text 12/05/24 16:24 Consult: Podiatry Routine Consulting Provider: Gab Simons Reason for Consult: left foot non healing cellulitis EMERGENT Consult: No MD Notified: Yes Date Notified: 12/05/24 Time Notified: 16:24 Method of Notification: Verbal 12/05/24 18:44 Consult: Vascular Surgery Routine Consulting Provider: Saúl Flowers Reason for Consult: left foot ischemia EMERGENT Consult: No MD Notified: Yes Date Notified: 12/05/24 Time Notified: 18:44 Method of Notification: Verbal Reason For Visit: FAILURE TO THRIVE, SIRS CRITERIA Diagnosis Discharge Diagnosis (1) Severe sepsis: Status: Acute Code(s): A41.9 - Sepsis, unspecified organism; R65.20 - Severe sepsis without septic shock (2) Lower extremity edema: Status: Acute Code(s): R60.0 - Localized edema Plan #Septic shock due to lower extremity cellulitis and pneumonia with bilateal pleural efffusions * Septic shock and pneumonia have resolved. Patient now on room air. * He had Klebsiella bacteremia. Completed 7 days of IV antibiotics. ID was on board. However he was started back on IV cefepime due to concerns for infection of his left foot. * will dc the cefepime. * * #Left lower extremity cellulitis/peripheral artery disease * Dorsum of left foot is blackened with surrounding erythema. He did have ankle-brachial index done which showed evidence of moderate peripheral artery disease on the left with SUZY of 0.72. SUZY on the right was 0.94. * He is on IV cefepime. * Podiatry consulted and thinks this is likely due to peripheral artery disease. They have ordered an MRI of the foot to evaluate for any infection and vascular surgery has been consulted. * Vascular surgery reviewed him and recommends angiogram to be done next week. Continue aspirin and high intensity statin. * WIll therefore DC IV antibiotics. * #Acute heart failure with reduced ejection fraction: EF is 30 to 35%. Off Lasix now as he was hypotensive. Currently on room air and stable. #Bilateral pleural effusions: He had thoracentesis done which showed that was a transudative fluid. He had 1.15 L of fluid removed via diagnostic thoracentesis on 11/25/2024 #Delirium and altered mental status: Largely improved. Patient doing much better. Will need follow-up on outpatient basis for evaluation for dementia. #Type 2 diabetes mellitus: On Lantus. Insulin sliding scale. Checks ACHS. Also on dapagliflozin. #CAD: On aspirin and Plavix as well as Repatha and high intensity statin #Debility and weakness with failure to thrive: PT OT on board. Fall precautions. DVT prophylaxis: SCDs Disposition: vascular surgery ok with him being dc'd and brought back for the angiogram next week. Awaiting placement in SNF Medications at Discharge Home Medications blood sugar diagnostic (FreeStyle Test strips) #50 ea 04/02/21 blood-glucose meter (FreeStyle System Kit) #1 ea 04/02/21 lancets 28 gauge (FreeStyle Lancets) #50 ea 04/02/21 pen needle, diabetic 31 gauge x 3/16 (1st Tier Unifine Pentips Plus) #100 ea 04/02/21 Handicap placard #1 ea 07/22/23 pen needle, diabetic 31 gauge x 5/16 (Comfort EZ Pen [place]) #100 ea 10/28/23 evolocumab 140 mg/mL subcutaneous pen injector (Repatha SureClick) 140 mg subcut Q2W cholesterol #6 mL 05/09/24 insulin glargine 100 unit/mL (3 mL) subcutaneous pen (Lantus Solostar U-100 Insulin) 20 unit subcut DAILY Diabetes 06/17/24 omeprazole 20 mg capsule,delayed release 20 mg PO DAILY reflux #90 caps 09/13/24 fluticasone propionate 50 mcg/actuation nasal spray,suspension (Flonase Allergy Relief) 2 spray intranasal DAILY PRN nasal congestion 09/18/24 nitroglycerin 0.4 mg sublingual tablet 0.4 mg sublingual Q5M PRN Cardiac/Chest Pain #25 tabs 09/27/24 aspirin 81 mg chewable tablet 81 mg PO BREAKFAST preventative #90 tabs 11/03/24 clopidogrel 75 mg tablet 75 mg PO DAILY antiplatelet #90 tabs 11/03/24 dapagliflozin propanediol 10 mg tablet (Farxiga) 10 mg PO DAILY diabetes #90 TABLETS 11/03/24 ezetimibe 10 mg tablet 10 mg PO DAILY cholesterol #90 tabs 11/03/24 albuterol sulfate 90 mcg/actuation aerosol inhaler 2 puff inhalation Q4H PRN shortness of breath or wheezing #6.7 grams 11/04/24 mometasone-formoterol HFA 100 mcg-5 mcg/actuation aerosol inhaler (Dulera) 2 puff inhalation BID COPD #13 grams 11/04/24 furosemide 40 mg tablet 40 mg PO BID diuretic 60 days #120 tabs 11/13/24 nicotine 21 mg/24 hr daily transdermal patch 1 patch transdermal DAILY #56 ea 11/13/24 doxycycline hyclate 100 mg tablet 100 mg PO BID #10 tabs 12/08/24 levofloxacin 500 mg tablet 500 mg PO DAILY #10 tabs 12/08/24 midodrine 5 mg tablet 10 mg (2 x 5 mg) PO TIDCM 30 days #180 tabs 12/08/24 Hospital Course Operations None Procedures 2-D Echocardiogram Summary of Care Provided Minutes Spent on Discharge: 48 Hospital Course: KANA MEJIA, is a 64 M with a H as outlined who presents via the ED with a complaint of weakness. He said he felt very weak at home and slid to the floor. He did not fall. He complained of some pain in his left hip. He did not hit his head. He denied any fever, chills, cough, nausea, vomiting or any other symptoms. Review of systems is otherwise negative. He had recently been managed for lower extremity cellulitis and says he was on antibiotics and felt the legs had improved. However the legs remained red. Vitals in the ED were BP of 114/74, AR of 109, RR of 21 and temp of 98F. He was saturating at 96% on room air. CBC showed hb of 13.6, wbc of 5.4, platelets of 392. INR is 1.2. Chemistry showed sodium of 139, potassium of 4.3 and bicarb of 18.6. Anion gap is 18 and Cr is 1.25. Lactic acid is 4.1. CXR showed subsegmental atelectasis at the lung basis and a small right pleural effusion. Hip and pelvic xray showed degenerative osteoarthrosis and no acute findings. He is being admitted to be managed for debility and weakness and SIRS criteria likely due to lower extremity cellulitis. HE was initially admitted to the PCU and started on IV vancomycin and zosyn. Blood and urine cultures were ordered as well as wound cultures. Patient however still remained tachypneic and tachycardic though he was on room air. Lactic acid was initially mildly elevated but subsequently trended up to 4.8. BNP was also markedly elevated at 11,000. IV fluids were therefore DC'd and he was placed on IV Lasix. Stat ABG and stat chest abdomen and pelvis CT with contrast were ordered to help elucidate the reason for the lactic acidosis, tachypnea and tachycardia. Was subsequently transferred up to the ICU. Duplex of the lower extremities was negative for any evidence of DVT. Critical care and ID were consulted. Patient had a very prolonged and protracted hospital course. Chest CT showed bilateral pleural effusion large on the right and evidence of right lower lobe consolidation. He was continued on IV vancomycin and cefepime. He had diagnostic thoracentesis which showed evidence of transudate and cultures were negative. Blood cultures grew Klebsiella oxytoca. He was continued on vancomycin and cefepime. Patient did require Levophed and so was treated for septic shock. He was eventually weaned off of the Levophed. He was placed on midodrine. He was on Lasix but this was initially switched to Lasix drip and then discontinued on account of the septic shock. 2D echo done showed EF of 30 to 35%. His Entresto and spironolactone were also discontinued. He also had BENOIT and hyponatremia which subsequently resolved. The wound cultures grew staph species and gram-negative arie lactose adapted physical education teacher. He completed a course of antibiotics. However the redness and cellulitis of the left lower extremity started to persist. He was therefore placed on IV cefepime again. He was transferred out of the ICU to the regular floor. ABGs were eventually done which did not show evidence of peripheral artery disease in the left lower extremity. Vascular surgery was therefore consulted and recommended that patient would benefit from angiogram. It was to be done in the second week of December 2024. He was placed back on the p.o. Lasix. Podiatry was consulted on account of the left lower extremity cellulitis and MRI of the foot done did not show any evidence of osteomyelitis. Patient subsequently improved and he felt better. Vascular surgery was okay with patient going to the retirement and coming back a week after for the angiogram. He was therefore discharged to the [facility] on 12/08/2024. Per discussion with ID he was discharged on p.o. Levaquin 500 mg daily and p.o. doxycycline 100 mg twice daily for 10 days. He has follow-up with his primary care doctor and with vascular surgery within 1 week. Patient was seen and examined prior to discharge. He had no active complaints. He had an uneventful night. Review of systems otherwise negative. Labs and vitals reviewed. Home medication reviewed and reconciled. Weight / BMI Weight Weight: 190 lb 7.67 oz Body Mass Index (BMI) 26.5 ABG / Lab / Microbiology Data 12/08/24 05:42 12/08/24 05:42 Laboratory: Laboratory Results - last 24 hr 11/24/24 14:15: Miscellaneous Cytology SEE PATHOLOGY REPORT 12/07/24 16:37: POC Glucose 140 H 12/07/24 20:33: POC Glucose 151 H 12/08/24 05:42: WBC 11.9 H, RBC 4.76, Hgb 13.8, Hct 42.4, MCV 89.1, MCH 29.0, MCHC 32.5, RDW Std Deviation 50.1 H, RDW Coeff of Maycol 15.7 H, Plt Count 455 H, MPV 9.0, Immature Gran % (Auto) 0.300, Neut % (Auto) 79.7 H, Lymph % (Auto) 11.4 L, [place] % (Auto) 7.8, Eos % (Auto) 0.3, Baso % (Auto) 0.5, Absolute Neuts (auto) 9.5 H, Absolute Lymphs (auto) 1.36, Nucleated RBC % 0, Sodium 135, Potassium 4.4, Chloride 98, Carbon Dioxide 21.9, Anion Gap 16 H, BUN 38 H, Creatinine 1.29 H, Estim Creat Clear Calc 61.61, Est GFR (MDRD) Non-Af 62, BUN/Creatinine Ratio 29.6 H, Glucose 115 H, Calcium 9.1 12/08/24 08:37: POC Glucose 116 H 12/08/24 11:33: POC Glucose 183 H Microbiology: Microbiology 12/01/24 13:20 Wound - No Site/Description Given Gram Stain - Final 12/01/24 13:20 Wound - No Site/Description Given Wound Culture - Final Staphylococcus aureus Klebsiella oxytoca Acinetobacter baumannii comple Escherichia coli Coag Negative Staph 11/24/24 14:15 Fluid - Thoracentesis Fluid Gram Stain - Final 11/24/24 14:15 Fluid - Thoracentesis Fluid Body Fluid Culture - Final Culture exhibits no growth. 11/24/24 14:15 Fluid - Thoracentesis Fluid Anaerobic Culture - Final No anaerobic bacteria isolated. 11/22/24 14:48 Blood Culture (Wb) - Left Hand Blood Culture - Final No growth in 5 days. 11/22/24 10:00 Blood Culture (Wb) - Anticubital Left Blood Culture - Final No growth in 5 days. 11/22/24 14:54 Blood Culture (Wb) - Right Hand Blood Culture - Final No growth in 5 days. 11/22/24 17:33 Wound - Ankle Gram Stain - Final 11/22/24 17:33 Wound - Ankle Wound Culture - Final Enterobacter cloacae complex Klebsiella oxytoca Enterococcus faecalis Staphylococcus aureus 11/22/24 19:01 Urine, Catheterized Urine Culture - Final Culture exhibits no growth. 11/22/24 10:00 Blood Culture (Wb) - Anticubital Right Blood Culture - Final Klebsiella oxytoca 11/22/24 22:44 Nasal Secretion MRSA (PCR) - Final 11/22/24 23:05 Mucosa - Nasopharyngeal Respiratory Panel (PCR) - Final 11/22/24 19:01 Urine Catheter - [place] Legionella Antigen - Final 11/22/24 19:01 Urine Catheter - [place] Streptococcus pneumoniae Antigen (M - Final D/C Instructions DC O2, CPAP, BIPAP Needs Home O2 Discharge instructions: Yes Type of respiratory needs?: Oxygen Oxygen frequency: Continuous Continuous oxygen liters per minute: 2 DC home with Oxygen: Yes Home O2 MD Review: I have reviewed the oxygen testing, and the patient qualifies for home oxygen equipment and portability. The patient is mobile in the home and the community. Meaningful Use Info Meaningful Use Meaningful Use Diagnoses (Choose all that apply): CHF CHF NYDIA/ARB ordered at discharge?: No Reason NYDIA/ARB not ordered?: Hypotension Documented LVEF (%): 35 Discharge Plan Admission Admit Date/Time: 11/22/24 13:04 Primary Reason for Your Visit: LLE cellulitis, acute heart failure, peripheral artery disease Attending Provider: Flori Johnson Primary Care Provider: Ant Nuñez Consulting Providers: Jeffery Del Valle; Flori Johnson; Saúl Dorado; Gab Simons; Saúl Flowers Instructions Patient Instructions: Peripheral Angiography, PAD, PAD Dc, Ankle Brachial Index (SUZY) Test Discharge Orders/Prescriptions Prescriptions: New midodrine 5 mg Tablet 10 mg PO TIDCM 30 Days Qty: 180 1RF levofloxacin 500 mg tablet 500 mg PO DAILY Qty: 10 0RF doxycycline hyclate 100 mg tablet 100 mg PO BID Qty: 10 0RF Continued (DME) Handicap placard See Rx Instructions .Route .MEDSUPPLY Qty: 1 0RF Rx Instructions: Due to COPD, unable to walk 50 yards without assistance, duration 5 years. (DME) pen needle, diabetic [Comfort EZ Pen [place]] 31 gauge x 5/16 needle See Rx Instructions .Route Qty: 100 3RF Rx Instructions: As directed nitroglycerin 0.4 mg tablet, sublingual 0.4 mg Sublingual Q5M PRN (Reason: Cardiac/Chest Pain) Qty: 25 1RF albuterol sulfate 90 mcg/actuation HFA aerosol inhaler 2 puff inhalation Q4H PRN (Reason: shortness of breath or wheezing) Qty: 6.7 1RF Dulera 100-5 mcg/actuation HFA aerosol inhaler 2 puff inhalation BID Qty: 13 1RF clopidogrel 75 mg tablet 75 mg PO DAILY Qty: 90 3RF ezetimibe 10 mg tablet 10 mg PO DAILY Qty: 90 3RF aspirin 81 mg tablet,chewable 81 mg PO BREAKFAST Qty: 90 3RF dapagliflozin propanediol [Farxiga] 10 mg tablet 10 mg PO DAILY Qty: 90 3RF fluticasone propionate [Flonase Allergy Relief] 50 mcg/actuation spray,suspension 2 spray intranasal DAILY PRN (Reason: nasal congestion) Rx Instructions: administer into each nostril furosemide 40 mg tablet 40 mg PO BID 60 Days Qty: 120 3RF nicotine 21 mg/24 hr patch 24 hour 1 patch transdermal DAILY Qty: 56 0RF insulin glargine [Lantus Solostar U-100 Insulin] 100 unit/mL (3 mL) insulin pen 20 unit subcut DAILY (DME) FreeStyle Test Strip See Rx Instructions .ROUTE .MEDSUPPLY Qty: 50 11RF Rx Instructions: check blood glucose daily (DME) blood-glucose meter [FreeStyle System Kit] Kit See Rx Instructions .ROUTE .MEDSUPPLY Qty: 1 0RF Rx Instructions: check blood glucose daily for type 2 DM (DME) lancets [FreeStyle Lancets] 28 gauge misc See Rx Instructions .ROUTE .MEDSUPPLY Qty: 50 11RF Rx Instructions: Check blood glucose daily for type 2 DM (DME) pen needle, diabetic [1st Tier Unifine Pentips Plus] 31 gauge x 3/16 needle See Rx Instructions .ROUTE .MEDSUPPLY Qty: 100 1RF Rx Instructions: use with lantus nightly Repatha SureClick 140 mg/mL pen injector 140 mg subcut Q2W Qty: 6 3RF omeprazole 20 mg capsule,delayed release(DR/EC) 20 mg PO DAILY Qty: 90 1RF Discontinued sacubitril-valsartan [Entresto] 24-26 mg Tablet 1 tab PO BID Qty: 60 0RF spironolactone 25 mg tablet 25 mg PO DAILY 60 Days Qty: 60 3RF Referrals / Follow Up: Ant Nuñez DO [Primary Care Provider] - Within 1 Week Saúl Flowers MD [Med Staff - Active Staff] - Within 1 Week Disposition Disposition (needs filled in before D/C Order can be placed): [facility] Charges/Coding Visit Charges Inpatient E&M: 95291 Disch Hosp >30min
--- NOTE | 2024-12-08 15:31 | CASEMGMT ---
Discharge Planning Discharge orders, signed med list, and transport time sent to [facility]. Physicians will transport pt by cot at 5p. Nursing, RN CM, pt, and his niece (Yudelka) updated. VM left for pts daughter (Christine). Tiffany Perdomo DC Planning Asst.
--- NOTE | 2024-12-08 15:32 | CASEMGMT ---
Patient has auth to discharge to [facility]. RN MIGUEL updated hospitalist, discharge placed and orders received. Patient to discharge to [facility] for skilled services. VICKI RIVERA updated DC Window Display Designer to complete discharge, setup transport, and notify family.
== END 2024-12-08 16:59 | disposition skilled nursing facility (03) | DRG 871 ==
LOC: ED 12:47 → PCU 13:14 → ICU 11-23 06:51 → PCU 11-28 07:07 → ICU 12-05 22:40
PROVIDERS: Family Medicine; Internal Medicine; Internal Medicine Infectious Disease; Admitting Provider Student in an Organized Health Care Education/Training Program; Emergency Provider Emergency Medicine; PCP Family Medicine; Visit Provider Student in an Organized Health Care Education/Training Program
DX: A41.59 Other Gram-negative sepsis (principal); J18.9 Pneumonia, unspecified organism; R65.21 Severe sepsis with septic shock; I50.23 Acute on chronic systolic (congestive) heart failure; J96.01 Acute respiratory failure with hypoxia; I70.262 Atherosclerosis of native arteries of extremities with gangrene, left leg; E11.52 Type 2 diabetes mellitus with diabetic peripheral angiopathy with gangrene; J44.0 Chronic obstructive pulmonary disease with (acute) lower respiratory infection; L97.429 Non-pressure chronic ulcer of left heel and midfoot with unspecified severity; E87.1 Hypo-osmolality and hyponatremia; J90 Pleural effusion, not elsewhere classified; N17.9 Acute kidney failure, unspecified; L97.321 Non-pressure chronic ulcer of left ankle limited to breakdown of skin; L03.116 Cellulitis of left lower limb; L03.115 Cellulitis of right lower limb; L89.020 Pressure ulcer of left elbow, unstageable; B96.20 Unspecified Escherichia coli [E. coli] as the cause of diseases classified elsewhere; I11.0 Hypertensive heart disease with heart failure; I25.10 Atherosclerotic heart disease of native coronary artery without angina pectoris; I25.2 Old myocardial infarction; Z79.4 Long term (current) use of insulin; E78.00 Pure hypercholesterolemia, unspecified; F41.9 Anxiety disorder, unspecified; I95.2 Hypotension due to drugs; I87.2 Venous insufficiency (chronic) (peripheral); E11.59 Type 2 diabetes mellitus with other circulatory complications; E11.628 Type 2 diabetes mellitus with other skin complications; E11.621 Type 2 diabetes mellitus with foot ulcer; B95.61 Methicillin susceptible Staphylococcus aureus infection as the cause of diseases classified elsewhere; B95.2 Enterococcus as the cause of diseases classified elsewhere; R62.7 Adult failure to thrive; R41.0 Disorientation, unspecified; R47.81 Slurred speech; Z68.29 Body mass index [BMI] 29.0-29.9, adult; Z79.02 Long term (current) use of antithrombotics/antiplatelets; Z79.51 Long term (current) use of inhaled steroids; Z79.82 Long term (current) use of aspirin; Z79.84 Long term (current) use of oral hypoglycemic drugs; Z79.899 Other long term (current) drug therapy; Z87.891 Personal history of nicotine dependence; Z86.73 Personal history of transient ischemic attack (TIA), and cerebral infarction without residual deficits
CPT/HCPCS: 32555; 36415; 36600; 70450; 70496; 70498; 71045; 71275; 73502; 73630; 73701; 74174; 80048; 80053; 80061; 80202; 81001; 82150; 82436; 82803; 82945; 82962; 83605; 83615; 83735; 83880; 83986; 84133; 84145; 84155; 84157; 84300; 84443; 85025; 85379; 85610; 85730; 87040; 87070; 87075; 87077; 87086; 87186; 87205; 87449; 87633; 87641; 88108; 88305; 88313; 89050; 93005; 93922; 93970; 94002; 94003; 94640; 94762; 97110; 97163; 97166; 97530; 97535; 97802; 97803; 99285; 99406; Q9967; A4216; J1938; J2405

== ENCOUNTER 2024-12-19 10:06 | Inpatient (IN) | payer MEDICAID, SELFPAY ==
[2024-12-19] VITALS (15 sets, daily range): BP systolic 101–154; BP diastolic 64–101; PULSE 100–112; RESP 16–26; TEMP 36.3–36.9; O2SAT 96–100; BMI 27.0; BMI 26.4
--- NOTE | 2024-12-19 10:45 | RAD_ITS ---
PROCEDURE: FOOT MIN 3 VIEWS 12/19/2024 REASON FOR EXAM: WOUND, ASSESS FOR OSTEOMYELITIS Dorsal soft tissue swelling. TECHNIQUE: Procedure Code: RADFO Modality: DX Procedure: FOOT MIN 3 VIEWS Laterality: Left foot. COMPARISON: Prior study dated December 05, 2024. FINDINGS: Bones: No visible fracture. No suspicious bone lesion. Plantar calcaneal spur. Joints: Joint space narrowing of the 1st metatarsophalangeal joint. Soft tissues: Dorsal soft tissue swelling. Other: RAD/Foot min 3 Views IMPRESSION: Degenerative changes of the 1st metatarsophalangeal joint. Calcaneal spur. Dorsal soft tissue swelling. Reading Location: [place] [id number]
--- NOTE | 2024-12-19 10:45 | EKG12_ITS ---
Test Reason : Blood Pressure : */* mmHG Vent. Rate : 108 BPM Atrial Rate : 108 BPM P-R Int : 140 ms QRS Dur : 82 ms QT Int : 358 ms P-R-T Axes : 46 30 97 degrees QTcB Int : 479 ms Sinus tachycardia Low voltage QRS Septal infarct , age undetermined Abnormal ECG Confirmed by Jose Garcia ([id number]), assignment editor LISS JARVIS ([id number]) on 12/20/2024 11:55:54 AM Referred By: Confirmed By: Jose Garcia
--- NOTE | 2024-12-19 10:45 | RAD_ITS ---
PROCEDURE: CHEST PA AND LATERAL 12/19/2024 REASON FOR EXAM: COUGH TECHNIQUE: Procedure Code: RADCXR Modality: DX Procedure: CHEST PA AND LATERAL COMPARISON: November 24, 2024 FINDINGS: Sternotomy wires are noted. There is mild cardiomegaly, similar to the prior. Central vascularity appears increased. There is consolidation an infiltrate in the right mid and lower lung with infiltrate in the left lower lung. There is a moderate right pleural effusion, increased. There is no pneumothorax. Aortic calcifications are noted. There is no visible acute bony abnormality. RAD/Chest PA and Lateral IMPRESSION: There is mild cardiomegaly, similar to the prior. Central vascularity appears increased. There is consolidation an infiltrate in the right mid and lower lung with infil trate in the left lower lung. There is a moderate right pleural effusion, increased Reading Location: [place]
[2024-12-19] MEDS: 0.9% Normal Saline (500mL Bag) 500 ML 1000 ML IV (10:55)
[2024-12-19 11:00] LABS: Hematocrit 43.2 % (40-54); Hemoglobin 13.9 g/dL (13.0-16.5); Immature Granulocytes Count 0.030 X10^3/uL (0.0-0.0); Mean Corp Hgb Conc 32.2 g/dL (32-36); Mean Corpuscular Volume 90.0 fL (80-94); Mean Platelet Vol. 10.0 fl (6.2-12.0); NRBC Flagged by Analyzer 0 % (0-5); Platelet Count 339 K/mm3 (150-450); RBC Distribution Width CV 16.8 % (11.6-14.6); RBC Distribution Width SD 54.1 fl (35.1-43.9); Red Blood Count 4.80 M/mm3 (4.6-6.2); White Blood Count 9.9 K/mm3 (4.4-11.0)
--- NOTE | 2024-12-19 11:03 | EX.ED.DYSGE1 ---
HPI History of Present Illness Chief Complaint: Wound Narrative Narrative: Chief complaint and HPI: 64-year-old male with multiple comorbidities including CHF, active attic valve stenosis, COPD, DM2, CAD status post CABG, HTN, HLD, dementia presents for evaluation of lower extremity cellulitis and left foot wound. History taken by patient as well as medical record. Patient has been residing at the [facility]. He was sent to the ED for wound to the left lower extremity. Patient currently on Levaquin for cellulitis. Patient states that he has had a wound on his foot for a while. States it was originally improving with antibiotics but now appears to be worsening. Endorses more redness and pain. He also endorses cough and mild shortness of breath. He is on 2 L nasal cannula baseline. On chart review, patient was just discharged from our hospital on 12/29. He was admitted for septic shock due to lower extremity cellulitis and pneumonia with bilateral effusions. He had Klebsiella bacteremia. He had a ankle-brachial index done which showed evidence of moderate PAD with SUZY of 0.72 on the left and SUZY on the right was 0.94. The dorsum of the left foot was blackened with surrounding erythema. Patient was on IV cefepime. Podiatry was consulted likely due to PAD. Recommended MRI of the foot. Vascular surgery was consulted recommended angiogram. On chart review, it appears that his arteriogram is scheduled for 01/05/2025. I was unable to find the MRI and unknown if it was performed. He denies any fever, chills, chest pain, abdominal pain, nausea, vomiting. Review of systems: See HPI Medications: As listed on the chart Allergies: As listed on the chart PFSH: Per chart Vital signs: As listed on the chart. Reviewed. Physical exam: Gen: A&O x3, NAD Head: Normocephalic, atraumatic Eyes: No sclera icterus, conjunctiva clear ENT: Moist mucous membranes Neck: Trachea midline CV:Tachycardic, regular rhythm, no murmurs, +2 pitting peripheral edema of the bilateral lower extremities with bilateral redness and lymphedema changes-clear seepage Resp: Diminished in the bilateral bases, cough+, on baseline 2 L nasal cannula GI: Abd soft, non-distended, non-tender, no r/r/g Musc: Moves all extremities, no deformity Skin: Warm, large necrotic wound to the dorsum of the left foot-DP/PT pulses dopplerable bilaterally difficult to feel given the edema and wound, legs tender to palpation diffusely due to touch Neuro: Alert, oriented, grossly intact, sensation intact Psych: Cooperative, appropriate mood and affect [facility] Medical History History of CVA (cerebrovascular accident) Cardiac LV ejection fraction 30-35% GERD (gastroesophageal reflux disease) Anxiety High blood cholesterol Diabetes mellitus Emphysema, unspecified COPD (chronic obstructive pulmonary disease) Decreased left ventricular function Encounter for screening for malignant neoplasm of lung in current smoker with 30 pack year history or greater Stenosis of right carotid artery Insulin dependent diabetes mellitus History of non-ST elevation myocardial infarction (NSTEMI) (06/11/18) Emphysema lung Asthma Type 2 diabetes mellitus Arthritis Pancreatitis GERD (gastroesophageal reflux disease) Nicotine dependence Atherosclerosis of coronary artery of elem heart without angina pectoris Hyperlipidemia Essential (primary) hypertension Home Medications ?Medication ?Instructions ?Recorded ?Last Taken ?Type blood sugar diagnostic (FreeStyle #50 ea 04/02/21 Unknown Rx Test strips) blood-glucose meter (FreeStyle #1 ea 04/02/21 Unknown Rx System Kit) lancets 28 gauge (FreeStyle #50 ea 04/02/21 Unknown Rx Lancets) pen needle, diabetic 31 gauge x #100 ea 04/02/21 Unknown Rx 3/16 (1st Tier Unifine Pentips Plus) Handicap placard #1 ea 07/22/23 Unknown Rx pen needle, diabetic 31 gauge x #100 ea 10/28/23 Unknown Rx 5/16 (Comfort EZ Pen [place]) evolocumab 140 mg/mL subcutaneous 140 mg subcut Q2W cholesterol #6 mL 05/09/24 09/12/24 Rx pen injector (Repatha SureClick) insulin glargine 100 unit/mL (3 20 unit subcut DAILY Diabetes 06/17/24 09/18/24 History mL) subcutaneous pen (Lantus Solostar U-100 Insulin) fluticasone propionate 50 2 spray intranasal DAILY PRN nasal 09/18/24 Unknown History mcg/actuation nasal congestion spray,suspension (Flonase Allergy Relief) nitroglycerin 0.4 mg sublingual 0.4 mg sublingual Q5M PRN 09/27/24 Unknown Rx tablet Cardiac/Chest Pain #25 tabs aspirin 81 mg chewable tablet 81 mg PO BREAKFAST preventative 11/03/24 Unknown Rx #90 tabs clopidogrel 75 mg tablet 75 mg PO DAILY antiplatelet #90 11/03/24 Unknown Rx tabs dapagliflozin propanediol 10 mg 10 mg PO DAILY diabetes #90 TABLETS 11/03/24 Unknown Rx tablet (Farxiga) ezetimibe 10 mg tablet 10 mg PO DAILY cholesterol #90 tabs 11/03/24 Unknown Rx albuterol sulfate 90 mcg/actuation 2 puff inhalation Q4H PRN 11/04/24 Unknown Rx aerosol inhaler shortness of breath or wheezing #6.7 grams furosemide 40 mg tablet 40 mg PO BID diuretic 60 days #120 11/13/24 Unknown Rx tabs nicotine 21 mg/24 hr daily 1 patch transdermal DAILY #56 ea 11/13/24 Unknown Rx transdermal patch levofloxacin 500 mg tablet 500 mg PO DAILY #10 tabs 12/08/24 Unknown Rx midodrine 5 mg tablet 10 mg (2 x 5 mg) PO TIDCM 30 days 12/08/24 Unknown Rx #180 tabs Lactobacillus rhamnosus GG 10 1 cap PO BID ATB THERAPY 12/19/24 Unknown History billion cell capsule (Culturelle) acetaminophen 500 mg capsule 1,000 mg PO Q8H PRN pain 12/19/24 Unknown History bisacodyl 10 mg rectal suppository 10 mg MD DAILY PRN constipation 12/19/24 Unknown History (Laxative (bisacodyl)) fluticasone 100 mcg-salmeterol 50 1 inh inhalation DAILY COPD 12/19/24 Unknown History mcg/dose blistr powdr for inhalation (Advair Diskus) hydroxyzine pamoate 25 mg capsule 25 mg PO Q8H PRN anxiety 12/19/24 Unknown History (Vistaril) magnesium hydroxide 400 mg/5 mL 30 ml PO DAILY PRN constipation 12/19/24 Unknown History oral suspension (Gentle Laxative (magnesium hydroxide)) mineral oil (Fleet Mineral Oil 118 ml MD DAILY PRN constipation 12/19/24 Unknown History enema) nystatin 100,000 unit/gram topical 1 applic topical DAILY PRN rash 12/19/24 Unknown History cream pantoprazole 20 mg tablet,delayed 20 mg PO DAILY GERD 12/19/24 Unknown History release potassium chloride 20 mEq 40 meq PO DAILY SUPPLEMENT 12/19/24 Unknown History tablet,extended release(part/cryst) (Klor-Con M) sacubitril 24 mg-valsartan 26 mg 1 tab PO BID 12/19/24 Unknown History tablet (Entresto) therapeutic multivitamin 1 tab PO DAILY 12/19/24 Unknown History Allergy/AdvReac Type Severity Reaction Status Date / Time amoxicillin Allergy Angioedema Verified 12/19/24 10:08 lindane Allergy Rash Verified 12/19/24 10:08 Family History Father Asthma Alcoholism Arthritis Heart disease Hypertension High cholesterol CVA (cerebral vascular accident) Lung cancer Grandfather Myocardial infarction Surgical History S/P CABG x 4 History of hernia repair History of carotid endarterectomy (01/06/14) H/O coronary artery bypass surgery (2006) History of left heart catheterization (06/11/18) Social History household members: none Smoking Status: Former smoker Tobacco: How many years used: 45 Electronic Cigarette Use: not used second hand exposure: Yes quit status: considering quitting alcohol intake: never substance use type: does not use caffeine: Yes Type: coffee Number of servings: 5 what type of physical activity do you participate in: none EXAM Physical Exam Const Vital Signs: 12/19/24 10:10 12/19/24 10:58 12/19/24 11:53 Temperature 97.9 F 98.3 F 98.3 F Temperature Source Oral Oral Oral Pulse Rate 112 H 111 H 104 H Respiratory Rate 16 18 18 Blood Pressure 133/95 H 133/95 H 117/81 H Blood Pressure Mean 107 107 93 Pulse Ox 100 100 100 Oxygen Delivery Method Nasal Cannula Nasal Cannula Nasal Cannula Oxygen Flow Rate (L/min) 2 2 2 12/19/24 12:50 12/19/24 13:28 Temperature 98.4 F 98.4 F Temperature Source Oral Pulse Rate 104 H 104 H Respiratory Rate 20 H 20 H Blood Pressure 113/82 H 154/99 H Blood Pressure Mean 92 117 Pulse Ox 100 96 Oxygen Delivery Method Nasal Cannula Oxygen Flow Rate (L/min) 3 MDM MDM MDM Narrative Medical decision making narrative: 64-year-old male with multiple comorbidities including CHF, active attic valve stenosis, COPD, DM2, CAD status post CABG, HTN, HLD, dementia presents for evaluation of lower extremity cellulitis and left foot wound. History taken by patient as well as medical record. Patient has been residing at the [facility]. He was sent to the ED for wound to the left lower extremity. Patient currently on Levaquin for cellulitis. Patient states that he has had a wound on his foot for a while. States it was originally improving with antibiotics but now appears to be worsening. He also endorses cough and mild shortness of breath. On chart review, patient was just discharged from our hospital on 12/29. He was admitted for septic shock due to lower extremity cellulitis and pneumonia with bilateral effusions. He had Klebsiella bacteremia. He had a ankle-brachial index done which showed evidence of moderate PAD with SUZY of 0.72 on the left and SUZY on the right was 0.94. The dorsum of the left foot was blackened with surrounding erythema. Patient was on IV cefepime. Podiatry was consulted likely due to PAD. Recommended MRI of the foot. Vascular surgery was consulted recommended angiogram. On chart review, it appears that his arteriogram is scheduled for 01/05/2025. I was unable to find the MRI and unknown if it was performed. I did personally call the [facility] and spoke with the nurse. She states that the wound care nurse was worried about the infection becoming worse. On presentation, patient is on his baseline 2 L nasal cannula. He is tachycardic but afebrile. Differential diagnosis includes but is not limited to cellulitis, osteomyelitis, PAD, CHF exacerbation, pneumonia. Given patient appears fluid overloaded on exam we will only give 500 cc bolus. Morphine ordered for pain. Levaquin, Flagyl, vancomycin ordered for antibiotics given his known allergies. Laboratory workup ordered including chest x-ray and x-ray of the foot. I did speak with one of the wound care nurses at the facility. They state that the wound appeared more red and swollen today. More painful. CBC without leukocytosis or anemia. Platelet count unremarkable. Patient has lactic acidosis of 3.7. CRP 24.9. ESR 39. BNP 21,171. Chest x-ray was personally reviewed interpreted by me, ED physician. Cardiomegaly with vascular congestion. Possible pneumonia. Radiology in agreement. Patient already received antibiotics that would cover for pneumonia. Lasix ordered. COVID, flu, RSV negative x-ray of the foot was personally reviewed and interpreted by me, ED physician. No obvious fracture or dislocation. No free air. Soft tissue swelling visualized. Radiology in agreement. CMP shows renal insufficiency with a creatinine of 1.43. His baseline appears to be 1.2. Patient will warrant admission. He was updated about results and plan. He confirmed understanding. Patient was discussed with the hospitalist service who accept admission EKG: Interpreted by me/EM physician: EKG shows tachycardia with a heart rate of 108. No acute ischemic changes. There is artifact on the EKG from his movement Impression: 1. CHF exacerbation 2. Possible pneumonia 3. Reported worsening left lower extremity wound infection 4. Lactic acidosis 5. Acute on chronic hypoxia secondary to #1 Lab Data Labs: Laboratory Results - last 24 hr 12/19/24 12/19/24 10:20 11:50 WBC 9.9 RBC 4.80 Hgb 13.9 Hct 43.2 MCV 90.0 MCH 29.0 MCHC 32.2 RDW Std Deviation 54.1 H RDW Coeff of Maycol 16.8 H Plt Count 339 MPV 10.0 Immature Gran % (Auto) 0.300 Neut % (Auto) 66.7 Lymph % (Auto) 18.2 L [place] % (Auto) 6.3 Eos % (Auto) 8.2 H Baso % (Auto) 0.3 Absolute Neuts (auto) 6.6 Absolute Lymphs (auto) 1.81 Nucleated RBC % 0 ESR 39 H PT Cancelled 15.6 H INR Cancelled 1.2 APTT Cancelled 27.8 Sodium Cancelled 139 Potassium Cancelled 4.3 Chloride Cancelled 99 Carbon Dioxide Cancelled 29.4 Anion Gap Cancelled 11 BUN Cancelled 27 H Creatinine Cancelled 1.43 H Estim Creat Clear Calc 55.58 Est GFR (MDRD) Non-Af Cancelled 55 L BUN/Creatinine Ratio Cancelled 18.5 Glucose Cancelled 158 H Lactic Acid 3.7 H* Calcium Cancelled 9.1 Total Bilirubin Cancelled 0.88 AST Cancelled 56 H ALT Cancelled 47 Alkaline Phosphatase Cancelled 267 H C-React Prot Ext Range 24[place] [address] H Total Protein Cancelled 7.4 Albumin Cancelled 3.4 Globulin Cancelled 4.0 Albumin/Globulin Ratio Cancelled 0.8 L Radiography Diagnostic Testing: Clinical Impression(s) from Imaging Studies Chest X-Ray 12/19/24 10:45 IMPRESSION: There is mild cardiomegaly, similar to the prior. Central vascularity appears increased. There is consolidation an infiltrate in the right mid and lower lung with infiltrate in the left lower lung. There is a moderate right pleural effusion, increased [facility] 12/19/24 10:45 IMPRESSION: Degenerative changes of the 1st metatarsophalangeal joint. Calcaneal spur. Dorsal soft tissue swelling. Reading Location: [facility] Discharge Plan Triage Chief Complaint: Wound ED Provider: Bishop Monique Dx/Rx/DC Orders Prescriptions: No Action (DME) Handicap placard See Rx Instructions .Route .MEDSUPPLY Qty: 1 0RF Rx Instructions: Due to COPD, unable to walk 50 yards without assistance, duration 5 years. (DME) pen needle, diabetic [Comfort EZ Pen [place]] 31 gauge x 5/16 needle See Rx Instructions .Route Qty: 100 3RF Rx Instructions: As directed nitroglycerin 0.4 mg tablet, sublingual 0.4 mg Sublingual Q5M PRN (Reason: Cardiac/Chest Pain) Qty: 25 1RF albuterol sulfate 90 mcg/actuation HFA aerosol inhaler 2 puff inhalation Q4H PRN (Reason: shortness of breath or wheezing) Qty: 6.7 1RF clopidogrel 75 mg tablet 75 mg PO DAILY Qty: 90 3RF ezetimibe 10 mg tablet 10 mg PO DAILY Qty: 90 3RF aspirin 81 mg tablet,chewable 81 mg PO BREAKFAST Qty: 90 3RF dapagliflozin propanediol [Farxiga] 10 mg tablet 10 mg PO DAILY Qty: 90 3RF fluticasone propionate [Flonase Allergy Relief] 50 mcg/actuation spray,suspension 2 spray intranasal DAILY PRN (Reason: nasal congestion) Rx Instructions: administer into each nostril furosemide 40 mg tablet 40 mg PO BID 60 Days Qty: 120 3RF nicotine 21 mg/24 hr patch 24 hour 1 patch transdermal DAILY Qty: 56 0RF midodrine 5 mg Tablet 10 mg PO TIDCM 30 Days Qty: 180 1RF levofloxacin 500 mg tablet 500 mg PO DAILY Qty: 10 0RF insulin glargine [Lantus Solostar U-100 Insulin] 100 unit/mL (3 mL) insulin pen 20 unit subcut DAILY sacubitril-valsartan [Entresto] 24-26 mg tablet 1 tab PO BID bisacodyl [Laxative (bisacodyl)] 10 mg suppository 10 mg MD DAILY PRN (Reason: constipation) mineral oil [Fleet Mineral Oil] Enema 118 ml MD DAILY PRN (Reason: constipation) Rx Instructions: discard any unused portion Culturelle 10 billion cell capsule 1 cap PO BID fluticasone propion-salmeterol [Advair Diskus] 100-50 mcg/dose blister with device 1 inh inhalation DAILY magnesium hydroxide [Gentle Laxative (mag hydrox)] 400 mg/5 mL suspension 30 ml PO DAILY PRN (Reason: constipation) nystatin 100,000 unit/gram cream 1 applic topical DAILY PRN (Reason: rash) pantoprazole 20 mg tablet,delayed release (DR/EC) 20 mg PO DAILY potassium chloride [Klor-Con M20] 20 mEq tablet,ER particles/crystals 40 meq PO DAILY therapeutic multivitamin Tablet 1 tab PO DAILY acetaminophen 500 mg capsule 1,000 mg PO Q8H PRN (Reason: pain) hydroxyzine pamoate [Vistaril] 25 mg capsule 25 mg PO Q8H PRN (Reason: anxiety) (DME) FreeStyle Test Strip See Rx Instructions .ROUTE .MEDSUPPLY Qty: 50 11RF Rx Instructions: check blood glucose daily (DME) blood-glucose meter [FreeStyle System Kit] Kit See Rx Instructions .ROUTE .MEDSUPPLY Qty: 1 0RF Rx Instructions: check blood glucose daily for type 2 DM (DME) lancets [FreeStyle Lancets] 28 gauge misc See Rx Instructions .ROUTE .MEDSUPPLY Qty: 50 11RF Rx Instructions: Check blood glucose daily for type 2 DM (DME) pen needle, diabetic [1st Tier Unifine Pentips Plus] 31 gauge x 3/16 needle See Rx Instructions .ROUTE .MEDSUPPLY Qty: 100 1RF Rx Instructions: use with lantus nightly Repatha SureClick 140 mg/mL pen injector 140 mg subcut Q2W Qty: 6 3RF Primary Care Provider: Stefan Yusuf Referrals: Ant Nuñez DO [Med Staff - [employer]] - Print Language: [place]
[2024-12-19] MEDS: levoFLOXacin IV 750 MG/150 ML BAG 100 MG IV (11:10)
[2024-12-19] MEDS: metroNIDAZOLE 500 MG/100 ML BAG 100 MG IV (11:15)
[2024-12-19 11:34] LABS: CRP 24.90 mg/L (0.0-3.0); Pro- Brain NATRIURETIC PEPTIDE 21171 pg/mL (<=900)
[2024-12-19 12:07] LABS: Partial Thromboplast Time 27.8 Seconds (24.1-36.2); Prothrombin Time (Protime)PT. 15.6 SECONDS (11.7-14.9)
[2024-12-19] MEDS: Vancomycin HCl 2,000 MG in 0.9% Normal Saline (500mL Bag) 500 ML 250 MG IV (12:50)
[2024-12-19 13:06] LABS: AST(SGOT) 56 U/L (<=37); Alanine Aminotransfer ALT/SGPT 47 U/L (<=46); Albumin, Serum 3.4 g/dL (3.4-4.8); Alkaline Phosphatase 267 U/L (40-129); Anion Gap 11 (5-15); BUN 27 mg/dL (4-19); BUN/Creat Ratio 18.5 RATIO (10-20); Calcium,Total 9.1 mg/dL (7.6-11.0); Carbon Dioxide 29.4 mmol/L (21.0-32.0); Chloride 99 mmol/L (98-108); Estimated Creatinine Clearance 55.58 ml/min (50-250); Globulin 4.0 g/dL (2.2-4.2); Glucose 158 mg/dL (70-99); Potassium 4.3 mmol/L (3.3-5.1)
--- NOTE | 2024-12-19 13:47 | ED.RN ---
carlos King called in for pt update.
--- NOTE | 2024-12-19 14:10 | PCM.HP.STD ---
HPI - General General Date of Admission: 12/19/24 Date of Service: 12/19/24 Chief Complaint: Left foot redness and drainage HPI Narrative KANA MEJIA, is a 64-year-old male history of CHF, aortic valve stenosis, COPD, chronic hypoxic respiratory failure on 2 L nasal cannula at baseline, CAD with CABG, diabetes type 2, GERD presented [facility] ED 12/19/2024 for left lower extremity cellulitis and left foot wound and increased shortness of breath. [facility] [address] and was brought to the ED due to left lower extremity cellulitis. He is currently on Levaquin and initially was improving but now is worsening and has increased redness and pain. In the ED temp 97.9, heart rate 112, blood pressure 133/95, respiratory rate 16 pulse ox 100% on 2 L nasal cannula. CBC with white count 9.9, hemoglobin 13.9, ESR 39 with a CRP of 24.9. BNP 21,000, lactic acid 3.7, CMP with a BUN of 27 and a creatinine of 1.43, 2 weeks ago creatinine 1.29 chest x-ray with increased central vascularity and consolidation and infiltrate in right mid and lower lung with infiltrate in the left lower lung with an increased moderate right pleural effusion. Foot x-ray with dorsal soft tissue swelling. Patient given broad IV antibiotics, medicine for pain and also diagnosed with heart failure exacerbation and given IV Lasix. Hospitalist contacted for admission for his left lower extremity foot infection, pneumonia, and heart failure exacerbation. Patient evaluated bedside and is fairly poor historian. He reports that his left foot sometimes is worse and sometimes is better, mostly has pain on the dorsal portion around the culprit area, does report shortness of breath and has increased cough, said he is not yet producing sputum but thinks he will. Does have frequent jerking movements and said this is new over the past couple of weeks. He is unable to provide any additional history [facility] Medical History History of CVA (cerebrovascular accident) Cardiac LV ejection fraction 30-35% GERD (gastroesophageal reflux disease) Anxiety High blood cholesterol Diabetes mellitus Emphysema, unspecified COPD (chronic obstructive pulmonary disease) Decreased left ventricular function Encounter for screening for malignant neoplasm of lung in current smoker with 30 pack year history or greater Stenosis of right carotid artery Insulin dependent diabetes mellitus History of non-ST elevation myocardial infarction (NSTEMI) (06/11/18) Emphysema lung Asthma Type 2 diabetes mellitus Arthritis Pancreatitis GERD (gastroesophageal reflux disease) Nicotine dependence Atherosclerosis of coronary artery of [place] heart without angina pectoris Hyperlipidemia Essential (primary) hypertension Home Medications ?Medication ?Instructions ?Recorded ?Last Taken ?Type blood sugar diagnostic (FreeStyle #50 ea 04/02/21 Unknown Rx Test strips) blood-glucose meter (FreeStyle #1 ea 04/02/21 Unknown Rx System Kit) lancets 28 gauge (FreeStyle #50 ea 04/02/21 Unknown Rx Lancets) pen needle, diabetic 31 gauge x #100 ea 04/02/21 Unknown Rx 3/16 (1st Tier Unifine Pentips Plus) Handicap placard #1 ea 07/22/23 Unknown Rx pen needle, diabetic 31 gauge x #100 ea 10/28/23 Unknown Rx 5/16 (Comfort EZ Pen [place]) evolocumab 140 mg/mL subcutaneous 140 mg subcut Q2W cholesterol #6 mL 05/09/24 09/12/24 Rx pen injector (Wolf SureSauravick) insulin glargine 100 unit/mL (3 20 unit subcut DAILY Diabetes 06/17/24 09/18/24 History mL) subcutaneous pen (Lantus Solostar U-100 Insulin) fluticasone propionate 50 2 spray intranasal DAILY PRN nasal 09/18/24 Unknown History mcg/actuation nasal congestion spray,suspension (Flonase Allergy Relief) nitroglycerin 0.4 mg sublingual 0.4 mg sublingual Q5M PRN 09/27/24 Unknown Rx tablet Cardiac/Chest Pain #25 tabs aspirin 81 mg chewable tablet 81 mg PO BREAKFAST preventative 11/03/24 Unknown Rx #90 tabs clopidogrel 75 mg tablet 75 mg PO DAILY antiplatelet #90 11/03/24 Unknown Rx tabs dapagliflozin propanediol 10 mg 10 mg PO DAILY diabetes #90 TABLETS 11/03/24 Unknown Rx tablet (Farxiga) ezetimibe 10 mg tablet 10 mg PO DAILY cholesterol #90 tabs 11/03/24 Unknown Rx albuterol sulfate 90 mcg/actuation 2 puff inhalation Q4H PRN 11/04/24 Unknown Rx aerosol inhaler shortness of breath or wheezing #6.7 grams furosemide 40 mg tablet 40 mg PO BID diuretic 60 days #120 11/13/24 Unknown Rx tabs nicotine 21 mg/24 hr daily 1 patch transdermal DAILY #56 ea 11/13/24 Unknown Rx transdermal patch levofloxacin 500 mg tablet 500 mg PO DAILY #10 tabs 12/08/24 Unknown Rx midodrine 5 mg tablet 10 mg (2 x 5 mg) PO TIDCM 30 days 12/08/24 Unknown Rx #180 tabs Lactobacillus rhamnosus GG 10 1 cap PO BID ATB THERAPY 12/19/24 Unknown History billion cell capsule (Culturelle) acetaminophen 500 mg capsule 1,000 mg PO Q8H PRN pain 12/19/24 Unknown History bisacodyl 10 mg rectal suppository 10 mg ID DAILY PRN constipation 12/19/24 Unknown History (Laxative (bisacodyl)) fluticasone 100 mcg-salmeterol 50 1 inh inhalation DAILY COPD 12/19/24 Unknown History mcg/dose blistr powdr for inhalation (Advair Diskus) hydroxyzine pamoate 25 mg capsule 25 mg PO Q8H PRN anxiety 12/19/24 Unknown History (Vistaril) magnesium hydroxide 400 mg/5 mL 30 ml PO DAILY PRN constipation 12/19/24 Unknown History oral suspension (Gentle Laxative (magnesium hydroxide)) mineral oil (Fleet Mineral Oil 118 ml ID DAILY PRN constipation 12/19/24 Unknown History enema) nystatin 100,000 unit/gram topical 1 applic topical DAILY PRN rash 12/19/24 Unknown History cream pantoprazole 20 mg tablet,delayed 20 mg PO DAILY GERD 12/19/24 Unknown History release potassium chloride 20 mEq 40 meq PO DAILY SUPPLEMENT 12/19/24 Unknown History tablet,extended release(part/cryst) (Klor-Con M) sacubitril 24 mg-valsartan 26 mg 1 tab PO BID 12/19/24 Unknown History tablet (Entresto) therapeutic multivitamin 1 tab PO DAILY 12/19/24 Unknown History Allergy/AdvReac Type Severity Reaction Status Date / Time amoxicillin Allergy Angioedema Verified 12/19/24 10:08 lindane Allergy Rash Verified 12/19/24 10:08 Family History Father Asthma Alcoholism Arthritis Heart disease Hypertension High cholesterol CVA (cerebral vascular accident) Lung cancer Grandfather Myocardial infarction Surgical History S/P CABG x 4 History of hernia repair History of carotid endarterectomy (01/06/14) H/O coronary artery bypass surgery (2006) History of left heart catheterization (06/11/18) Social History household members: none Smoking Status: Former smoker Tobacco: How many years used: 45 Electronic Cigarette Use: not used second hand exposure: Yes quit status: considering quitting alcohol intake: never substance use type: does not use caffeine: Yes Type: coffee Number of servings: 5 what type of physical activity do you participate in: none ROS ROS Narrative Patient unable to provide full ROS as he seems intermittently confused and is also tired and has difficulty answering questions, was able to endorse shortness of breath and cough as well as waxing and waning increased pain and symptoms in left lower extremity and new onset of these jerking movements Vital Signs Vital Signs Vital Signs: 12/19/24 10:10 12/19/24 10:58 12/19/24 11:53 Temperature 97.9 F 98.3 F 98.3 F Temperature Source Oral Oral Oral Pulse Rate 112 H 111 H 104 H Respiratory Rate 16 18 18 Blood Pressure 133/95 H 133/95 H 117/81 H Blood Pressure Mean 107 107 93 Pulse Ox 100 100 100 Oxygen Delivery Method Nasal Cannula Nasal Cannula Nasal Cannula Oxygen Flow Rate (L/min) 2 2 2 12/19/24 12:50 12/19/24 13:28 12/19/24 14:03 Temperature 98.4 F 98.4 F 98.4 F Temperature Source Oral Oral Pulse Rate 104 H 104 H 104 H Respiratory Rate 20 H 20 H 17 Blood Pressure 113/82 H 154/99 H 123/81 H Blood Pressure Mean 92 117 95 Pulse Ox 100 96 100 Oxygen Delivery Method Nasal Cannula Nasal Cannula Oxygen Flow Rate (L/min) 3 2 Weight Weight: 87.9 kg Body Mass Index (BMI) 27.0 Physical Exam Narrative General: Patient was able to tell me where he was in with the year and month or however was answering with bizarre statements and started talking about a cat on the wall and often responded with answers that did not make sense in context of the question or would not answer at all HEENT: Atraumatic, seems to talk more over the left side of his mouth Eyes: Anicteric, Neck: Supple Respiratory: Scattered wheezes, diminished at the bases, normal respiratory effort Cardiovascular: Low-grade sinus tachycardia GI: Soft, nontender, nondistended Extremities: Some edema in lower extremities without significant pitting, left foot with large eschar on the dorsum with surrounding erythema with pain and warmth Musculoskeletal: Moving all extremities Neuro: Patient having significant myoclonic jerking movements Skin: Lesion on foot as above Psych: Attempts to be cooperative Results Lab / Micro Data 12/19/24 10:20 12/19/24 11:50 Labs: Laboratory Results - last 24 hr 12/19/24 10:20: WBC 9.9, RBC 4.80, Hgb 13.9, Hct 43.2, MCV 90.0, MCH 29.0, MCHC 32.2, RDW Std Deviation 54.1 H, RDW Coeff of Maycol 16.8 H, Plt Count 339, MPV 10.0, Immature Gran % (Auto) 0.300, Neut % (Auto) 66.7, Lymph % (Auto) 18.2 L, Gregg % (Auto) 6.3, Eos % (Auto) 8.2 H, Baso % (Auto) 0.3, Absolute Neuts (auto) 6.6, Absolute Lymphs (auto) 1.81, Nucleated RBC % 0, ESR 39 H, PT Cancelled, INR Cancelled, APTT Cancelled, Sodium Cancelled, Potassium Cancelled, Chloride Cancelled, Carbon Dioxide Cancelled, Anion Gap Cancelled, BUN Cancelled, Creatinine Cancelled, Est GFR (MDRD) Non-Af Cancelled, BUN/Creatinine Ratio Cancelled, Glucose Cancelled, Lactic Acid 3.7 H*, Calcium Cancelled, Total Bilirubin Cancelled, AST Cancelled, ALT Cancelled, Alkaline Phosphatase Cancelled, C-React Prot Ext Range 24.90 H, [place] [address] H, Total Protein Cancelled, Albumin Cancelled, Globulin Cancelled, Albumin/Globulin Ratio Cancelled 12/19/24 11:50: PT 15.6 H, INR 1.2, APTT 27.8, Sodium 139, Potassium 4.3, Chloride 99, Carbon Dioxide 29.4, Anion Gap 11, BUN 27 H, Creatinine 1.43 H, Estim Creat Clear Calc 55.58, Est GFR (MDRD) Non-Af 55 L, BUN/Creatinine Ratio 18.5, Glucose 158 H, Calcium 9.1, Total Bilirubin 0.88, AST 56 H, ALT 47, Alkaline Phosphatase 267 H, Total Protein 7.4, Albumin 3.4, Globulin 4.0, Albumin/Globulin Ratio 0.8 L Micro: Microbiology 12/19/24 11:05 Mucosa - Nose SARS-CoV-2, Influenza & RSV (PCR) - Final Imaging Radiology Impression Chest X-Ray 12/19/24 10:45 IMPRESSION: There is mild cardiomegaly, similar to the prior. Central vascularity appears increased. There is consolidation an infiltrate in the right mid and lower lung with infiltrate in the left lower lung. There is a moderate right pleural effusion, increased Reading Location: [facility] Foot X-Ray 12/19/24 10:45 IMPRESSION: Degenerative changes of the 1st metatarsophalangeal joint. Calcaneal spur. Dorsal soft tissue swelling. Reading Location: [facility]-IR-1 Assessment & Plan Assessment/Plan (1) Left foot infection: (2) Acute exacerbation of chronic heart failure: (3) Pneumonia: PLAN: Plan # Left lower extremity cellulitis and wound -X-ray of foot with soft tissue swelling -ESR 39 and CRP 24.9 in ED -Consult wound care -Consult podiatry -Consult ID -Broad-spectrum antibiotics but will avoid Levaquin as concern that this is induced is myoclonus given the timeline of it starting while he was on this medication and do not see another obvious culprit medication -Currently patient with significant jerking, appears to be myoclonic jerking and do not think he would be able to be still enough for an MRI today, once these movements improve can consider an MRI versus any other workup or management per ID and/or podiatry recommendations - Blood culture sent in ED that do not think patient is septic at this time #Acute exacerbation of chronic heart failure with reduced ejection fraction -Admit to telemetry -proBNP 21,000 -CXR increased vascularity -Continue IV lasix -Last echo 09/19/2024 with EF of 35% with wall motion abnormalities -Repeat echo not ordered as last one was <3 months ago -Daily weights, I's and O's -Fluid restriction, heart healthy diet # Possible pneumonia -Imaging: Increased vascular congestion but also appears to have infiltrates and patient has cough in addition to shortness of breath -DuoNebs and as needed albuterol -Sputum culture, COVID negative, respiratory panel ordered -Urine antigens -Mucinex, I/S - Broad-spectrum antibiotics as above #Myoclonic jerking - Patient has significant jerking movements, appear to be consistent with myoclonic jerking - Seems as though this started after patient was placed on Levaquin and well prior this could be a side effect - Will treat with broad-spectrum antibiotics but avoid Levaquin given these concerns # Elevated lactic acid -Poor perfusion in setting of heart failure exacerbation and infection -Clinically and laboratory evidence of fluid overload -Would expect some improvement with diuresis and treatment of underlying etiologies -Will diurese and trend lactic to assess for improvement # Chronic hypoxic respiratory failure secondary to COPD - Labs as above - Incentive spirometer - Supportive care #Hx of CAD -w/ previous CABG -Continue home medications #Type 2 diabetes mellitus -Glucose checks and sliding scale insulin - Continue long-acting insulin #GERD -Continue PPI #DVT ppx: Lovenox subcu Donna Wolff MD Charges/Coding Visit Charges Inpatient E&M: 73265 Init Hosp L2
[2024-12-19 14:52] LABS: Reflex Lactate? Y
[2024-12-19] MEDS: Albuterol 2.5 MG/3 ML VIAL.NEB. INHALATION (16:05)
--- NOTE | 2024-12-19 16:43 | PCM.RX.CS ---
Consult Antibiotic Management Pharmacy has been consulted to manage selected antibiotic: Vancomycin Type of Intervention Type of Consult: New start Suspected Infection Suspected Infection: Skin/Soft tissue and Pneumonia Prior Doses of Antibiotics Prior Doses of Antibiotics Received/Current Regimen: 2000 mg LD given 12/19 @ 1250 Labs Labs: Sodium 139 mmol/L (133-145) 12/19/24 11:50 Potassium 4.3 mmol/L (3.3-5.1) 12/19/24 11:50 Chloride 99 mmol/L (98-108) 12/19/24 11:50 Carbon Dioxide 29.4 mmol/L (21.0-32.0) 12/19/24 11:50 Anion Gap 11 (5-15) 12/19/24 11:50 BUN 27 mg/dL (4-19) H 12/19/24 11:50 Creatinine 1.43 mg/dL (0.70-1.20) H 12/19/24 11:50 Est GFR (MDRD) Non-Af 55 (>60) L 12/19/24 11:50 BUN/Creatinine Ratio 18.5 RATIO (10-20) 12/19/24 11:50 Glucose 158 mg/dL (70-99) H 12/19/24 11:50 Microbiology Microbiology: Microbiology 12/19/24 11:05 Mucosa - Nose SARS-CoV-2, Influenza & RSV (PCR) - Final Dosing Weight Weight used for dosin.1 kg Estimated Creatinine Clearance Estimated Creatinine Clearance: 56 Goal Trough Goal Trough: 15-20 mcg/mL Pharmacy Plan for Drug Dosing Pharmacy Plan for Drug Dosing: Pharmacy Service will continue to monitor and adjust dosing as required. NEW START IV VANCOMYCIN Consulting Physician: Dr. Wolff Indication: PNA/Left foot cellulitis Goal Trough: 15-20 SrCr: 1.43 CrCl: 56 WBC: 9.9 RR: 26 Comments: Afebrile Vancomycin Dose: 750 mg Q12H Pending Level: 12/21 @ 0030 Date/Time Labs Ordered Labs to be done on [date and time ordered]: 12/21 @ 003
[2024-12-19] MEDS: 0.9% Saline Lock 10 ML Syringe IV ×2 (17:03→22:58)
--- NOTE | 2024-12-19 17:50 | CON.PCM_ITS ---
Assessment & Plan Assessment/Plan (1) PAD (peripheral artery disease): (2) Type 2 diabetes mellitus treated with insulin: (3) Atherosclerosis of [place] arteries of extremities with gangrene, left leg: (4) Cellulitis of left lower limb: PLAN: Plan Evaluation performed. There is worsening left lower extremity peripheral arterial disease with critical limb ischemia with superimposed infection. Left foot xrays obtained today and were reviewed - no acute radiographic findings - there is no gas in the tissues, and debridement of left foot is not an emergency at this time, rather this should be done in a setting with vascular surgery on board. Urgent vascular surgery consultation is needed as soon as possible. Vascular surgeon here at [facility] is not available this week, and given the critical limb ischemia and high risk for limb loss, recommended patient be transferred for urgent vascular surgery evaluation. The patient is on IV antibiotics at this time - Vanc and Zosyn. There is noted to be0 an open area to the dorsal medial aspect of the left foot eschar and there was purulent drainage from site, this was expressed and was cultured for further evaluation. Spoke with hospitalists, Dr. Wolff and plan is for patient to be transferred for urgent vascular surgery evaluation and management. HPI Consult Data Date of Consult: 12/19/24 HPI Narrative Reason for Consultation: Worsening left foot HPI Narrative: KANA MEJIA, is a 64 M who presents [facility] hospital [facility] due to worsening left foot ulcer and pain. He has significant peripheral arterial disease, TBI left foot is 0.11, follows with vascular surgery service. Patient was initially going to have vascular surgery intervention left week but had to be rescheduled and now scheduled for 01/05/2025. However symptoms and wound have been worsening and he presented to hospital today. He had a lot of rest pain to his left foot, and there is a large dorsal foot wound. He has many medical problems, and has noted bilateral lower extremity swelling. He has been on Levaquin for left foot. He has been admitted for further management. [facility] Medical History History of CVA (cerebrovascular accident) Cardiac LV ejection fraction 30-35% GERD (gastroesophageal reflux disease) Anxiety High blood cholesterol Diabetes mellitus Emphysema, unspecified COPD (chronic obstructive pulmonary disease) Decreased left ventricular function Encounter for screening for malignant neoplasm of lung in current smoker with 30 pack year history or greater Stenosis of right carotid artery Insulin dependent diabetes mellitus History of non-ST elevation myocardial infarction (NSTEMI) (06/11/18) Emphysema lung Asthma Type 2 diabetes mellitus Arthritis Pancreatitis GERD (gastroesophageal reflux disease) Nicotine dependence Atherosclerosis of coronary artery of [place] heart without angina pectoris Hyperlipidemia Essential (primary) hypertension Home Medications ?Medication ?Instructions ?Recorded ?Last Taken ?Type blood sugar diagnostic (FreeStyle #50 ea 04/02/21 Unkn own Rx Test strips) blood-glucose meter (FreeStyle #1 ea 04/02/21 Unknown Rx System Kit) lancets 28 gauge (FreeStyle #50 ea 04/02/21 Unknown Rx Lancets) pen needle, diabetic 31 gauge x #100 ea 04/02/21 Unkno wn Rx 3/16 (1st Tier Unifine Pentips Plus) Handicap placard #1 ea 07/22/23 Unknown Rx pen needle, diabetic 31 gauge x #100 ea 10/28/23 Unkno wn Rx 5/16 (Comfort EZ Pen [place]) evolocumab 140 mg/mL subcutaneous 140 mg subcut Q2W ch olesterol #6 mL 05/09/24 09/12/24 Rx pen injector (Repatha SureClick) insulin glargine 100 unit/mL (3 20 unit subcut .hs Mayra betes 06/17/24 09/18/24 History mL) subcutaneous pen (Lantus Solostar U-100 Insulin) fluticasone propionate 50 2 spray intranasal DAILY PRN nasal 09/18/24 Unknown History mcg/actuation nasal congestion spray,suspension (Flonase Allergy Relief) nitroglycerin 0.4 mg sublingual 0.4 mg sublingual Q5M PRN 09/27/24 Unknown Rx tablet Cardiac/Chest Pain #25 tabs aspirin 81 mg chewable tablet 81 mg PO BREAKFAST preve ntative 11/03/24 Unknown Rx #90 tabs clopidogrel 75 mg tablet 75 mg PO DAILY antiplatelet #90 11/03/24 Unknown Rx tabs dapagliflozin propanediol 10 mg 10 mg PO DAILY diabete s #90 TABLETS 11/03/24 Unknown Rx tablet (Farxiga) ezetimibe 10 mg tablet 10 mg PO DAILY cholesterol # 90 tabs 11/03/24 Unknown Rx albuterol sulfate 90 mcg/actuation 2 puff inhalation Q 4H PRN 11/04/24 Unknown Rx aerosol inhaler shortness of breath or wheez ing #6.7 grams furosemide 40 mg tablet 40 mg PO BID diuretic 60 day s #120 11/13/24 Unknown Rx tabs nicotine 21 mg/24 hr daily 1 patch transdermal DAILY # 56 ea 11/13/24 Unknown Rx transdermal patch levofloxacin 500 mg tablet 500 mg PO DAILY #10 tabs Unknown Rx midodrine 5 mg tablet 10 mg (2 x 5 mg) PO TIDCM lo w bp 12/08/24 Unknown Rx 30 days #180 tabs Lactobacillus rhamnosus GG 10 1 cap PO BID ATB THERAPY 12/19/24 Unknown History billion cell capsule (Culturelle) acetaminophen 500 mg capsule 1,000 mg PO Q8H PRN pain 12/19/24 Unknown History bisacodyl 10 mg rectal suppository 10 mg SC DAILY PRN constipation 12/19/24 Unknown History (Laxative (bisacodyl)) fluticasone 100 mcg-salmeterol 50 1 inh inhalation JUD LY COPD 12/19/24 Unknown History mcg/dose blistr powdr for inhalation (Advair Diskus) hydroxyzine pamoate 25 mg capsule 25 mg PO Q8H PRN anx iety 12/19/24 Unknown History (Vistaril) magnesium hydroxide 400 mg/5 mL 30 ml PO DAILY PRN con stipation 12/19/24 Unknown History oral suspension (Gentle Laxative (magnesium hydroxide)) mineral oil (Fleet Mineral Oil 118 ml SC DAILY PRN con stipation 12/19/24 Unknown History enema) nystatin 100,000 unit/gram topical 1 applic topical DA BRENDA PRN rash 12/19/24 Unknown History cream pantoprazole 20 mg tablet,delayed 20 mg PO DAILY GERD 12/19/24 Unknown History release potassium chloride 20 mEq 40 meq PO DAILY SUPPLEMENT 0 12/19/24 Unknown History tablet,extended release(part/cryst) (Klor-Con M) sacubitril 24 mg-valsartan 26 mg 1 tab PO BID heart Unknown History tablet (Entresto) therapeutic multivitamin 1 tab PO DAILY 12/19/24 Unkn own History Allergy/AdvReac Type Severity Reaction Status Date / Time amoxicillin Allergy Angioedema Verified 12/19/24 10:08 lindane Allergy Rash Verified 12/19/24 10:08 Family History Father Asthma Alcoholism Arthritis Heart disease Hypertension High cholesterol CVA (cerebral vascular accident) Lung cancer Grandfather Myocardial infarction Surgical History S/P CABG x 4 History of hernia repair History of carotid endarterectomy (01/06/14) H/O coronary artery bypass surgery (2006) History of left heart catheterization (06/11/18) Social History (Updated 12/19/24 @ 15:39 by Malini Chavira) household members: none housing: half-way Smoking Status: Former smoker Tobacco: How many years used: 45 Electronic Cigarette Use: not used second hand exposure: Yes quit status: considering quitting alcohol intake: never substance use type: does not use caffeine: Yes Type: coffee Number of servings: 5 what type of physical activity do you participate in: none Physical Exam Const no apparent distress Constitutional Narrative: There is dry eschar to the dorsal left foot mostly intact but there is an opening at the medial aspect with purulent drainage, the surroudning tissues of the left foot and ankle are dusky, toes are very cool left foot, there is quarter sized eschar to the distal leg, right foot/ankle/leg with no tissue loss or ulcerations but tissues appear dusky as well, there is delayed CFT to all toes bilaterally. Toes cool right foot as well. There is no crepitus bilateral foot or ankle. Patient has rest pain left foot. There is diffuse lower extremity edema. There is rubor diffusely bilateral lower extremity. Lab / Micro Data 12/19/24 10:20 12/19/24 11:50 Labs: Laboratory Results - last 24 hr 12/19/24 10:20: WBC 9.9, RBC 4.80, Hgb 13.9, Hct 43.2, MCV 90.0, MCH 29.0, MCHC 32.2, RDW Std Deviation 54.1 H, RDW Coeff of Maycol 16.8 H, Plt Count 339, MPV 10.0, Immature Gran % (Auto) 0.300, Neut % (Auto) 66.7, Lymph % (Auto) 18.2 L, [place] % (Auto) 6.3, Eos % (Auto) 8.2 H, Baso % (Auto) 0.3, Absolute Neuts (auto) 6.6, Absolute Lymphs (auto) 1.81, Nucleated RBC % 0, ESR 39 H, PT Cancelled, INR Cancelled, APTT Cancelled, Sodium Cancelled, Potassium Cancelled, Chloride Cancelled, Carbon Dioxide Cancelled, Anion Gap Cancelled, BUN Cancelled, Creatinine Cancelled, Est GFR (MDRD) Non-Af Cancelled, BUN/Creatinine Ratio Cancelled, Glucose Cancelled, Lactic Acid 3.7 H*, Calcium Cancelled, Total Bilirubin Cancelled, AST Cancelled, ALT Cancelled, Alkaline Phosphatase Cancelled, C-React Prot Ext Range 24.90 H, [place] [address] H, Total Protein Cancelled, Albumin Cancelled, Globulin Cancelled, Albumin/Globulin Ratio Cancelled 12/19/24 11:50: PT 15.6 H, INR 1.2, APTT 27.8, Sodium 139, Potassium 4.3, Chloride 99, Carbon Dioxide 29.4, Anion Gap 11, BUN 27 H, Creatinine 1.43 H, Estim Creat Clear Calc 55.58, Est GFR (MDRD) Non-Af 55 L, BUN/Creatinine Ratio 18.5, Glucose 158 H, Calcium 9.1, Total Bilirubin 0.88, AST 56 H, ALT 47, A lkaline Phosphatase 267 H, Total Protein 7.4, Albumin 3.4, Globulin 4.0, A lbumin/Globulin Ratio 0.8 L 12/19/24 15:28: Lactic Acid 2.3 H* Micro: Microbiology 12/19/24 11:05 Mucosa - Nose SARS-CoV-2, Influenza & RSV (PCR) - Final Imaging Radiology Impression Chest X-Ray 12/19/24 10:45 IMPRESSION: There is mild cardiomegaly, similar to the prior. Central vascularity appears increased. There is consolidation an infiltrate in the right mid and lower lung with infiltrate in the left lower lung. There is a moderate right pleural effusion, increased Reading Location: [facility] Foot X-Ray 12/19/24 10:45 IMPRESSION: Degenerative changes of the 1st metatarsophalangeal joint. Calcaneal spur. Dorsal soft tissue swelling. Reading Location: [place] [id number]
--- NOTE | 2024-12-19 19:47 | PCM.HOSP.N ---
Hospitalist Note Pt evaluated by podiatry, Dr. Simons, who had seen him during his previous hospitalization. Given the worsening ulcer and now concomitant infection with peripheral disease he recommended transfer for vascular services with further evaluation and possible need for intervention given vascular surgery will not be available at our institution this week and there is concern that this needs addressed sooner than would be possible at our institution. Discussed with patient and patient's daughter regarding plan for transfer and reason why and they were agreeable. Called the general [facility] transfer line and requested transfer to one of the [facility] facilities available, specifically one with the capabilities to manage patient likely a [facility] or [facility] Main. Egrald with the transfer line reached out to [facility] who report they are on diversion and called back with the vascular doctor, Dr. Bailey, from [place], a different [facility] facility. He reviewed the case with me and was agreeable to see the patient but recommended patient be admitted under medical services given his multiple comorbidities and present medical complaints. Discussed the case with the medicine attending Dr. Sabillon who accepted patient for transfer to [facility] [place]
[2024-12-19] MEDS: Budesonide Respules 0.5 MG/2 ML AMPUL.NEB. INHALATION (20:27)
[2024-12-19] MEDS: Meropenem 1 GM in 0.9% Normal Saline (100mL MB+) 100 ML IV (21:45)
[2024-12-19] MEDS: MELATONIN 10 MG TABLET PO (21:46)
--- OUTSIDE RECORDS SUMMARY | 2024-12-19 23:33 | XMS RPT_ITS | CCD ---
Author Organization [facility] Care Team Providers Care Long Lines Operator Name Role Phone Unavailable Primary Care Provider Unavailabl e Dr. Xiang Rogers Primary Care Provider [...] ) Dr. Xiang Rogers Attending Provider [phone] Xiang Rogers Referring Provider [phone] Galdino Baird Attending Provider Unavailable Abby HOME SALES CONSULTANT, HOME SALES CONSULTANT-C Kimberli Attending Provider Abby HOME SALES CONSULTANT, HOME SALES CONSULTANT-C Kimberli Referring Provider Dr. Xiang Rogers Primary Care Provider [phone] Dr. Xiang Rogers Attending Provider [phone] Dr. Xiang Rogers Referring Provider Dr. Maribell Moura Emergency Provider Elizabeth, Dr. Flori Jones Admit Provider Elizabeth, Dr. Flori Jones Other Provider Fareed, Dr. Blackwood Other Provider Dr. Steve Fields Attending Provider Unavailable Dr. Steve Fields Other Provider Unavailable Dr. Calos Quinn Attending Provider Roof HOME SALES CONSULTANT, HOME SALES CONSULTANT-C Dean Carson Attending Provider Xiang Rogers DO Primary Care Provider Dr. Xiang Rogers Primary Care Provider [phone] Dr. Xiang Rogers Attending Provider Dr. Xiang Rogers Referring Provider Roof HOME SALES CONSULTANT, HOME SALES CONSULTANT-C Dean Carson Attending Provider Dr. Xiang Rogers Primary Care Provider [phone] Dr. Xiang Rogers Referring Provider Dr. Xiang Roegrs Attending Provider Dr. Xiang Rogers Primary Care Provider [phone] Dr. Xiang Rogers Referring Provider [facility] HOME SALES CONSULTANT, HOME SALES CONSULTANT-C Kimberli Attending Provider Xiang Rogers DO Primary Care Provider Dr. Xiang Rogers DO Primary Care Provider Dr. Xiang Rogers DO Referring Provider Lubna Calhoun Attending Provider Dr. Xiang Rogers DO Attending Provider Dr. Jose Small DPM Attending Provider Dr. Jose Small DPM Referring Provider Dr. Saúl Flowers MD Attending Provider Manley PA, Lubna Referring Provider Magaly Denise Attending Provider Dr. Saúl Flowers MD Referring Provider Dr. Saúl Flowers MD Other Provider Magaly Denise Referring Provider Kai WESTBROOK, Dr. Live Attending Provider Dr. Saúl Aguilar DO Attending Provider Dr. Saúl Aguilar DO Emergency Provider Kai WESTBROOK, Dr. Live Other Provider Dr. Xiang Rogers DO Primary Care Provider Dr. Xiang Rogers DO Referring Provider [phone] Lubna Calhoun Attending Provider [phone] Saúl Aguilar DO Attending Provider Dr. Saúl Aguilar DO Emergency Provider Lubna Calhoun Referring Provider Dr. Saúl Flowers MD Attending Provider [phone] Dr. Calos Quinn MD Other Provider [phone] Magaly Denise Attending Provider Dr. Jevon Osorio MD Emergency Provider Esteban DO, Dr. Wilson Admit Provider Unavail able Dr. Steve Esteban DO Other Provider Unavail able Shona WESTBROOK, Dr. [...] Provider Esteban DO, Dr. Wilson Attending Provider Bradentonv cornell Mckeon MD, Dr. Horvath Attending Provider New WESTBROOK, Dr. Thompson Attending Provider Kai WESTBROOK, Dr. Live Attending Provider Zeb SANDRA, Dr. Ann Other Provider Lenny GARSIA, Ronit Attending Provider Dr. Lawson Castellon DO Attending Provider Dr. Lawson Castellon DO Emergency Provider Dr. Xiang Rogers DO Attending Provider Dr. Xiang Rogers DO Primary Care Provider [phone] Lubna Calhoun Attending Provider Uriel WESTBROOK, Dr. Jane Other Provider Dr. Xiang Rogers DO Referring Provider Dr. Clinton Soares DO Admit Provider Dr. Clinton Soares DO Attending Provider Dr. Xiang Rogers DO Primary Care Provider Dr. Saúl Aguilar DO Emergency Provider Dr. Clinton Soares DO Other Provider Dr. Xiang Rogers DO Primary Care Provider [phone] Lubna Calhoun Attending Provider Vineet DEVINE, Lubna Referring Provider Lionel WESTBROOK, Dr. Hays Attending Provider Zeb SANDRA, Dr. Ann Other Provider New WESTBROOK, Dr. Thompson Attending Provider Kai WESTBROOK, Dr. Live Attending Provider Zeb SANDRA, Dr. Ann Attending Provider New WE[place], Dr. Thompson Other Provider Trinidad DEVINE, Magaly Nelson Attending Provider Paul SANDRA, Dr. Laura Emergency Provider Azucena SANDRA, Dr. Elkins Emergency Provider Patricio WESTBROOK, Dr. Beltran Referring Provider Patricio WESTBROOK, Dr. Beltran Emergency Provider Dr. Valentín Miller DO Attending Provider Azucena SANDRA, Dr. Elkins Attending Provider Randa SANDRA, Dr. Dobson Emergency Provider Patricio WESTBROOK, Dr. Beltran Attending Provider Randa SANDRA, Dr. Dobson Attending Provider Dr. Xiang Rogers DO Primary Care Provider Dr. Xiang Rogers DO Referring Provider Mckay HOME SALES CONSULTANT-CLeah Attending Provider [phone] Bishop Monique DO Emergency Provider Emily WESTBROOK, Dr. Corazon Young Admit Provider Emily WESTBROOK, Dr. Corazon Young Attending Provider Dr. Xiang Rogers DO Primary Care Provider [phone] Dr. Xiang Rogers DO Referring Provider Lubna Calhoun Attending Provider Eneida SANDRA, Dr. Alas Emergency Provider Emily WESTBROOK, Dr. Corazon Young Attending Provider Emily WESTBROOK, Dr. Corazon Young Admit Provider Emily WESTBROOK, Dr. Corazon Young Other Provider [phone] Diamond WE[place], Dr. Wilson Attending Provider Unavaila skip Trevino MD, Dr. Jane Other Provider Diamond WESTBROOK, Dr. Wilson Other Provider Unavailable Uriel WESTBROOK, Dr. Jane Attending Provider Uriel WESTBROOK, Dr. Jane Attending Provider Uriel WESTBROOK, Dr. Jane Referring Provider Magaly Denise Referring Provider Elizabeth WESTBROOK, Dr. Flori Jones Admit Provider Elizabeth WESTBROOK, Dr. Flori Jones Attending Provider Xiang Rogers R Primary Care Unavailable Steve Fields Attending Unavailable Corazon Diaz Admitting Unavailable Corazon Diaz Consulting Unavailable Buck Trevino Consulting Unavailable Xiang Rogers R Primary Care Unavailable Clinton Soares Consulting Unavailable Clinton Soares Admitting Unavailable Donna Wolff Attending Unavailable Seth Carrington Consulting Unavailable Steve Esteban Consulting Unavailable Steve Esteban Admitting Unavailable Seth Carrington Attending Unavailable Xiang Rogers R Primary Care Unavailable Mary Kay Naegl Consulting Unavailable Otilia Chaudhary Consulting Unavailable Fareed, Mer[place] Consulting Unavailable George Ball Consulting Unavailable Calos Quinn Consulting Unavailable Belevelin, Farouk Consulting Unavailable Jose Garcia Consulting Unavailable Alexandru Mckeon Consulting Unavailmague diaz Sattasneem, Abisai Consulting Unavailable Riki Shay Consulting Unavailable Dean Pena Consulting Unavailable Magaly Denise Consulting Unavail able Avery Valderrama Consulting Unavailable Triston Muro Consulting Unavailable Donna Wolff Consulting Unavailable Seth Carrington Consulting Unavailable Jeffery Del Valle Consulting Unavailable Donna Wolff Admitting Unavailable Donna Wolff Attending Unavailable Stefan Yusuf Primary Care Unavailable Gab Simons Consulting Unavailable Brown, Xiang R Primary Care Unavailable Clinton Soares Admitting Unavailable Donna Wolff Attending Unavailable Clinton Soares Consulting Unavailable Seth Carrington Consulting Unavailable Donna Wolff Consulting Unavailable Brown, Xiang R Primary Care Unavailable Saúl Flowers Attending Unavailable Jose Small Referring Unavailable Brown, Xiang R Primary Care Unavailable Ronit Galvez NP Attending Unavailable Brown, Xiang R Referring Unavailable Brown, Xiang R Primary Care Unavailable Bronson Tolentino Attending Unavailable Brown, Xiang R Primary Care Unavailable Valentín Miller Attending Unavailable Brown, Xiang R Primary Care Unavailable Severo Zeng Attending Unavailable Brown, Xiang R Primary Care Unavailable Devin Curry Referring Unavailable Devin Curry Attending Unavailable Lawson Castellon Attending Unavailable Brown, Xiang R Primary Care Unavailable Brown, Xiang R Primary Care Unavailable Saúl Aguilar Attending Unavailable Brown, Xiang R Primary Care Unavailable Saúl Flowers Attending Unavailable Lionel, Saúl Referring Unavailable Brown, Xiang R Primary Care Unavailable Magaly Denise Attending Unavail able Magaly Denise Referring Unavail able Lubna Manley Referring Unavailable Brown, Xiang R Primary Care Unavailable Lubna Manley Attending Unavailable Donna Wolff Consulting Unavailable Alexandru Mckeon Attending Unavailabl e Donna Wolff Attending Unavailable Calos Quinn Attending Unavailable Clinton Soares Attending Unavailable Seth Carrington Attending Unavailable Lubna Manley Attending Unavailable Brown, Xiang [...] Unavailable Brown, Xiang R Primary Care Unavailable ManleyGergLubna Attending Unavailable Brown, Xiang R Referring Unavailable Brown, Xiang R Primary Care Unavailable Brown, Xiang R Referring Unavailable Magaly Denise Attending Unavail able Brown, Xiang R Primary Care Unavailable Brown, Xiang R Referring Unavailable Brown, Xiang R Attending Unavailable Brown, Xiang R Primary Care Unavailable Jeffery Del Valle Consulting Unavailable Elizabeth, Flori Karen Admitting Unavailable Saúl Dorado Attending Unavailable Flori Johnson Karen Consulting Unavailable Saúl Dorado Consulting Unavailable Steve Esteban Attending Unavailable Joaquin, Xiang R Primary Care Unavailable Steve Fields Attending Unavailable Corazon Diaz Admitting Unavailable Corazon Diaz Consulting Unavailable Buck Trevino Consulting Unavailable Steve Fields Consulting Unavailable Flori Johnson Attending Unavailable Jacob Hendrix Consulting Unavailable Keshav Crawley Consulting Unavailable Domingo Khan Consulting Unavailable Manuel Rogers Consulting Unavailable Steve Sanford Consulting Unavailable Michelet Collado Consulting Unavailable Rom Govea Consulting Unavailable Whit Driver Consulting UnavailJordan De La Garza Consulting Unavailable Iam Campbell Consulting Unavailable Bronson Leach Consulting Unavailable Samantha Siddiqi Consulting Unavailable Mimi Combs Consulting Unavailable Carole Ugalde Consulting Unavailable Neptali Slaughter Consulting Unavailable Hollis Ignacio Consulting Unavailable Sandoval Platt Consulting Unavailable Shlomo Kelly Consulting Unavailable Dawood Banks Consulting Unavailable Barbi Bull Consulting Unavailable Kris Ayers Consulting Unavailable Jovanny Blanc Consulting Unavailable Osito Sandoval Consulting Unavailable Koram, Flori Karen Referring Unavailable Manuel Rogers Attending Unavailable Brown, Xiang R Primary Care Unavailable Calos Quinn Attending Unavailable Brown, Xiang R Primary Care Unavailable Corazon Diaz Attending Unavailable Buck Trevino Attending Unavailable Brown, Xiang R Primary Care Unavailable Brown, Xiang R Referring Unavailable Leah Bashir Attending Unavailable Brown, Xiang R Primary Care Unavailable Brown, Xiang R Referring Unavailable Magaly Denise Attending Unavail able Koram, Flori Karen Admitting Unavailable Jeffery Del Valle Consulting Unavailable Koram, Flori Karen Attending Unavailable Brown, Xiang R Primary Care Unavailable Koram, Flori Karen Consulting Unavailable Saúl Dorado Consulting Unavailable Gab Simons Consulting Unavailable Saúl Flowers Consulting Unavailable Steve Esteban Admitting Unavailable Steve Esteban Consulting Unavailable Seth Carrington Attending Unavailable Brown, Xiang R Primary Care Unavailable Mary Kay Nagel Consulting Unavailable Otilia Chaudhary Consulting Unavailable Merced Guerrier Consulting Unavailable George Ball Consulting Unavailable Kai, Calos Consulting Unavailable Uriel, Farouk Consulting Unavailable Jose Garcia Consulting Unavailable Nagajothi, Nagapradee Consulting Unavailabl emily Farley, Abisai Consulting Unavailable Riki Shay Consulting Unavailable Dean Pena Consulting Unavailable Trinidad DEVINE, Magaly Nelson Consulting Unavail able Avery Valderrama Consulting Unavailable Triston Muro Consulting Unavailable Donna Wolff Consulting Unavailable Brown, Xiang R Primary Care Unavailable Abby HOME SALES CONSULTANT, Kimberli Referring Unavailable Abby HOME SALES CONSULTANT, Kimberli Attending Unavailable Brown, Xiang R Primary Care Unavailable Kai, [place] Attending Unavailable Brown, Xiang R Primary Care Unavailable Lionel, Saúl Attending Unavailable Brown, Xiang R Primary Care Unavailable [place], Saúl Attending Unavailable Manley, Lubna Referring Unavailable Manley, Lubna Attending Unavailable Brown, Xiang R Primary Care Unavailable Brown, Xiang R Primary Care Unavailable Jose Small Attending Unavailable Jose Small Referring Unavailable Alexandru Mckeon Attending Unavailabl e Brown, Xiang R Primary Care Unavailable Manley, Lubna Referring Unavailable Brown, Xiang R Primary Care Unavailable Manley, Lubna Attending Unavailable Brown, Xiang R Primary Care Unavailable Lionel, Saúl Attending Unavailable Manley, Lubna Referring Unavailable Brown, Xiang R Primary Care Unavailable Belal, Lizziek Attending Unavailable Belal, Farouk Referring Unavailable Brown, Xiang R Primary Care Unavailable Lionel, Saúl Attending Unavailable Brown, Xiang R Primary Care Unavailable Belal, Farouk Attending Unavailable Belal, Farouk Referring Unavailable Brown, Xiang R Primary Care Unavailable Kai, [place] Attending Unavailable Brown, Xiang R Primary Care Unavailable Manley, Lubna Referring Unavailable Lionel, Saúl Attending Unavailable Brown, Xiang R Primary Care Unavailable [place], Saúl Consulting Unavailable Lionel, Saúl Attending Unavailable Lionel, Saúl Referring Unavailable Kai, [place] Consulting Unavailable Trinidad DEVINE, Magaly Nelson Attending Unavail able Brown, Xiang R Primary Care Unavailable Brown, Xiang R Primary Care Unavailable Manley, Lubna Attending Unavailable Brown, Xiang R Referring Unavailable Brown, Xiang R Primary Care Unavailable Manley, Lubna Attending Unavailable Brown, Xiang R Referring Unavailable Brown, Xiang R Primary Care Unavailable Manely, Lubna Attending Unavailable Brown, Xiang R Referring Unavailable Brown, Xiang R Primary Care Unavailable Manley, Lubna Attending Unavailable Brown, Xiang R Referring Unavailable Manley, Lubna Attending Unavailable Brown, Xiang R Referring Unavailable Brown, Xiang R Primary Care Unavailable Lenny BELL, Ronit Attending Unavailable Brown, Xiang R Primary Care Unavailable Brown, Xiang R Referring Unavailable Brown, Xiang R Referring Unavailable Brown, Xiang R Attending Unavailable Brown, Xiang R Primary Care Unavailable Gab Simons Consulting Unavailable Saúl Flowers Consulting Unavailable Saúl Flowers Attending Unavailable Brown, Xiang R Primary Care Unavailable Lenny HOME SALES CONSULTANT, Ronit Attending Unavailable Lenny HOME SALES CONSULTANT, Ronit Referring Unavailable Brown, Xiang R Primary Care Unavailable Magaly Denise Referring Unavail able Brown, Xiang R Attending Unavailable Lenny HOME SALES CONSULTANT, Ronit Referring Unavailable Lenny HOME SALES CONSULTANT, Ronit Attending Unavailable Brown, Xiang R Primary Care Unavailable Allergies Allergy Classification Reported Allergen(s) Allergy Type Date of Onset Reaction(s) Facility (8 sources) Etodolac; Translations: [ETODOLAC] Drug Allergy 03-12-2005 GI Upset [facility] (20 sources) Amoxicillin; Translations: [AMOXICILLIN] Drug Allergy 07-18-2021 Angioedema [facility] (20 sources) Lindane; Translations: [LINDANE] Drug Allergy 07-18-2021 Rash [facility] (1 source) Amoxicillin Drug Allergy 12-19-2024 [facility] (1 source) Lindane Drug Allergy 12-19-2024 [facility] (1 source) Unable to Assess Drug allergy (disorder) 06-17-2024 [facility] Medications Current Medications Medication Drug Class(es) [...] Active Comment on above: Glucose Meter of [facility] ice - Kit - Dx: Type 2 [...] system (20 sources) Cholinergic Nicotinic Agonist Start: 11-13-2024 Start: 06-20-2024 End: 09-21-2024 Start: 06-12-2018 End: [...] 5 days spironolactone 25 mg oral tablet (20 sources) Aldosterone Antagonist Start: 11-04-2024 End: 11-13-2024 Start: 06-20-2024 End: 09-21-2024 (20 sources) Start: 11-13-2024 Start: 11-04-2024 Start: 06-18-2024 End: 10-19-2024 Start: [...] January 13, 2023 January 26, 2023 2:35pm [id number] 200 actuat albuter ol 0.09 mg/actuat metered [...] (20 sources) Loop Diuretic Start: 06-20-2024 End: 11-13-2024 icosapent ethyl 1000 mg oral capsule (20 [...] 06-20-2024 End: 09-18-2024 Start: 07-14-2013 End: 07-28-2017 Nirmatrelvir-Ritonavir (20 sources) Start: 07-18-2021 End: 09-18-2021 [...] the tongue every 5 minutes as needed. Jackson-3 Fatty Acids-Fish Oil (12 sources) Start: 07-10-2017 End: 07-28-2017 Jackson-3 Fatty Acids-Fish Oil Discontinued 2 EACH PO DAILY July 10, 2017 3:35pm July 28, 2017 1:36pm Start: 07-10-2017 End: 07-28-2017 Jackson-3 Fatty Acids-Fish Oil Discontinued 2 EACH PO DAILY July 09, 2017 11:00pm July 28, 2017 12:36pm Start: 07-10-2017 End: 07-28-2017 Jackson-3 Fatty Acids-Fish Oil Discontinued 2 EACH PO DAILY July 10, 2017 12:00am July 28, 2017 1:36pm Jackson-3 Fatty Acids-Fish Oil 1 EACH capsule (1 source) Start: 07-10-2017 End: 07-28-2017 Jackson-3 Fatty Acids-Fish Oil 1 EACH capsule Discontinued [...] above: Take 2 tablets [facility] once daily. simvastatin 40 mg oral table [...] Active Problems Problem Classification Problem Date Documented Date Episodic/Chronic Abdominal pain (20 sources) Generalized abdominal pain; Translations: [Generalized abdominal pain] Onset: 01-28-2022 Episodic Acute bronchitis (20 sources) Acute bronchitis with bronchospasm; Translations: [Acute bronchitis, unspecified] 04-13-2019 Episodic Acute myocardial infarction (20 sources) Myocardial infarction; Translations: [Non-ST elevation (NSTEMI) myocardial infarction] Chronic Bacterial infection; unspecified site (1 source) Bacteremia; Translations: [Bacteremia] Onset: 12-19-2024 Episodic Chronic kidney disease (1 source) Dependence on renal dialysis; Translations: [Dependence on renal dialysis] Onset: 06-21-2024 Chronic Chronic obstructive pulmonary disease and bronchiectasis (20 sources) Pulmonary emphysema; Translations: [Emphysema, unspecified] Onset: 06-24-2024 Chronic Chronic obstructive pulmonary disease and bronchiectasis (20 sources) Bronchitis; Translations: [Bronchitis, not specified as acute or chronic] 2020 Episodic Chronic ulcer of skin (1 source) Non-pressure chronic ulcer of other part of unspecified foot with unspecified severity; Translations: [Non-pressure chronic ulcer of other part of unspecified foot with unspecified severity] Onset: 12-08-2024 Chronic Congestive heart failure; nonhypertensive (20 sources) Congestive heart failure; Translations: [Heart failure, unspecified] Onset: 11-10-2024 06-27-2024 Chronic Coronary atherosclerosis and other heart disease (20 sources) History of non-ST segment elevation myocardial infarction; Translations: [Old myocardial infarction] Onset: 06-11-2018 12-11-2020 Chronic Comment on above: The patient has no c hest pain. Coronary atherosclerosis and other heart disease (17 sources) Presence of aortocoronary bypass graft; Translations: [Aortocoronary bypass status] Onset: 04-06-2006 Episodic Diabetes mellitus with complications (2 sources) Type 2 diabetes mellitus with foot ulcer; Translations: [Type 2 diabetes mellitus with hyperglycemia] Onset: 12-08-2024 Chronic Diabetes mellitus without complication (20 sources) Diabetes mellitus; Translations: [Insulin dependent diabetes mellitus] Onset: 06-24-2024 Chronic Diabetes mellitus without complication (20 sources) Hyperglycemia; Translations: [Hyperglycemia, unspecified] Onset: 06-24-2024 07-06-2020 Episodic Disorders of lipid metabolism (20 sources) Pure hypercholesterolemia; Translations: [Pure hypercholesterolemia, unspecified] Onset: 10-09-2015 10-09-2015 Chronic E Codes: Fall (19 sources) Fall; Translations: [Unspecified fall, initial encounter] 04-25-2023 Episodic Essential hypertension (20 sources) Essential hypertension; Translations: [Essential (primary) hypertension] Onset: 11-10-2024 Chronic Fluid and electrolyte disorders (20 sources) Hyponatremia; Translations: [Hypo-osmolality and hyponatremia] 07-06-2020 Episodic Gangrene (1 source) Atherosclerosis of [place] arteries of extremities with gangrene, left leg; Translations: [Atherosclerosis of [place] arteries of extremities with gangrene, left leg] Onset: 12-08-2024 Chronic Headache; including migraine (20 sources) Headache; Translations: [Headache] 08-13-2020 Episodic Heart valve disorders (20 sources) Aortic valve stenosis; Translations: [Nonrheumatic aortic (valve) stenosis] Onset: 10-18-2024 07-12-2024 Chronic Hypertension with complications and secondary hypertension (2 sources) Hypertensive heart and chronic kidney disease with heart failure and stage 1 through stage 4 chronic kidney disease, or unspecified chronic kidney disease; Translations: [Hypertensive heart disease with heart failure] Onset: 12-09-2024 Chronic Malaise and fatigue (2 sources) Asthenia; Translations: [Weakness] Onset: 12-19-2024 11-22-2024 Episodic Nonspecific chest pain (20 sources) Chest discomfort; Translations: [Other chest pain] Onset: 12-09-2024 06-27-2024 Episodic Occlusion or stenosis of precerebral arteries (20 sources) Right carotid artery stenosis; Translations: [Occlusion and stenosis of right carotid artery] Onset: 10-18-2024 Chronic Open wounds of extremities (1 source) Unspecified open wound of right great toe without damage to nail, initial encounter; Translations: [Unspecified open wound of right great toe without damage to nail, initial encounter] Onset: 09-29-2024 Episodic Other aftercare (16 sources) Surgical follow-up; Translations: [Encounter for surgical aftercare following surgery on the circulatory system] 05-17-2024 Episodic Other aftercare (1 source) Encounter for other specified aftercare; Translations: [Encounter for other specified aftercare] Onset: 11-14-2024 Episodic Other aftercare (2 sources) senior living (current) use of insulin; Translations: [senior living (current) use of insulin] Onset: 06-24-2024 Episodic Other and ill-defined heart disease (16 sources) Impaired left ventricular function; Translations: [Heart disease, unspecified] 05-10-2024 Chronic Other and ill-defined heart disease (20 sources) Left ventricular cardiac dysfunction; Translations: [Heart disease, unspecified] 06-27-2024 Chronic Other and ill-defined heart disease (2 sources) Heart disease, unspecified; Translations: [Heart disease, unspecified] Onset: 09-27-2024 Chronic Other circulatory disease (17 sources) Disorder of carotid artery; Translations: [Disorder of arteries and arterioles, unspecified] 09-09-2023 Chronic Other circulatory disease (1 source) Disorder of arteries and arterioles, unspecified; Translations: [Disorder of arteries and arterioles, unspecified] Onset: 09-12-2024 Chronic Other circulatory disease (1 source) Other specified peripheral vascular diseases; Translations: [Other specified peripheral vascular diseases] Onset: 06-03-2024 Chronic Other circulatory disease (10 sources) H/O: heart failure; Translations: [Personal history of other diseases of the circulatory system] 10-23-2024 Episodic Other connective tissue disease (16 sources) Pain in left lower limb; Translations: [Pain in left leg] 10-28-2023 Episodic Other connective tissue disease (1 source) Pain in right arm; Translations: [Pain in right arm] Onset: 12-09-2024 Episodic Other diseases of veins and lymphatics (10 sources) Non-infectious disorder of lymphatics; Translations: [Other specified noninfective disorders of lymphatic vessels and lymph nodes] 11-10-2024 Chronic Other diseases of veins and lymphatics (1 source) Other specified noninfective disorders of lymphatic vessels and lymph nodes; Translations: [Other specified noninfective disorders of lymphatic vessels and lymph nodes] Onset: 11-10-2024 Chronic Other ear and sense organ disorders (20 sources) Eczema of external auditory canal; Translations: [Acute eczematoid otitis externa, bilateral] 10-09-2022 Episodic Other hematologic conditions (20 sources) High troponin I level; Translations: [Other specified abnormalities of plasma proteins] 06-14-2018 Episodic Other injuries and conditions due to external causes (19 sources) Abrasion; Translations: [Other injury of unspecified body region, initial encounter] 04-25-2023 Episodic Other injuries and conditions due to external causes (10 sources) Hematoma; Translations: [Other injury of unspecified body region, initial encounter] 10-21-2024 Episodic Other liver diseases (20 sources) Steatosis of liver; Translations: [Fatty (change of) liver, not elsewhere classified] 06-14-2018 Chronic Other lower respiratory disease (19 sources) Pulmonary edema; Translations: [Chronic pulmonary edema] 06-27-2024 Chronic Other lower respiratory disease (16 sources) Dyspnea on exertion; Translations: [Other forms of dyspnea] 05-10-2024 Episodic Other lower respiratory disease (15 sources) Respiratory insufficiency; Translations: [Other abnormalities of breathing] 06-27-2024 Episodic Other lower respiratory disease (15 sources) Hypoxia; Translations: [Hypoxemia] 06-27-2024 Episodic Other lower respiratory disease (19 sources) Acute respiratory distress; Translations: [Acute respiratory distress] 06-27-2024 Episodic Other lower respiratory disease (2 sources) Acute pulmonary edema; Translations: [Acute pulmonary edema] Onset: 06-24-2024 Episodic Other nervous system disorders (1 source) Unable to walk; Translations: [Difficulty in walking, not elsewhere classified] 11-22-2024 Chronic Other nutritional; endocrine; and metabolic disorders (20 sources) Hypocalcemia; Translations: [Hypocalcemia] 06-17-2021 Chronic Other nutritional; endocrine; and metabolic disorders (19 sources) Body mass index 25-29 - overweight; Translations: [Overweight] 06-27-2024 Episodic Other nutritional; endocrine; and metabolic disorders (10 sources) H/O: diabetes mellitus; Translations: [Personal history of other endocrine, nutritional and metabolic disease] 10-23-2024 Episodic Other nutritional; endocrine; and metabolic disorders (1 source) Personal history of other endocrine, nutritional and metabolic disease; Translations: [Personal history of other endocrine, nutritional and metabolic disease] Onset: 12-08-2024 Episodic Other nutritional; endocrine; and metabolic disorders (2 sources) Overweight; Translations: [Overweight] Onset: 06-24-2024 Episodic Other screening for suspected conditions (not mental disorders or infectious disease) (20 sources) Patient encounter status; Translations: [Encounter for screening for malignant neoplasm of respiratory organs] Onset: 06-24-2024 Episodic Other skin disorders (20 sources) Lesion of skin of foot; Translations: [Changes in skin texture] 02-24-2024 Episodic Other skin disorders (1 source) Changes in skin texture; Translations: [Changes in skin texture] Onset: 09-29-2024 Episodic Other upper respiratory infections (1 source) Chronic sinusitis; Translations: [Chronic sinusitis, unspecified] 12-31-2023 Chronic Other upper respiratory infections (20 sources) Upper respiratory infection; Translations: [Acute upper respiratory infection, unspecified] Episodic Mnida-; endo-; and myocarditis; cardiomyopathy (except that caused by tuberculosis or sexually transmitted disease) (15 sources) Cardiomyopathy; Translations: [Cardiomyopathy, unspecified] 08-06-2024 Chronic Peripheral and visceral atherosclerosis (20 sources) Intermittent claudication; Translations: [Peripheral vascular disease, unspecified] Onset: 05-05-2024 09-10-2023 Chronic Comment on above: LEAS Pleurisy; pneumothorax; pulmonary collapse (20 sources) Bilateral pleural effusion; Translations: [Pleural effusion, not elsewhere classified] Onset: 06-24-2024 06-27-2024 Episodic Pneumonia (except that caused by tuberculosis or sexually transmitted disease) (1 source) Pneumonia, unspecified organism; Translations: [Pneumonia, unspecified organism] Onset: 12-19-2024 Episodic Residual codes; unclassified (20 sources) Noncompliance with medication regimen; Translations: [Patient's other noncompliance with medication regimen] 06-14-2018 Episodic Residual codes; unclassified (9 sources) Peripheral edema; Translations: [Localized edema] 10-23-2024 Episodic Residual codes; unclassified (2 sources) Edema of lower extremity; Translations: [Localized edema] 11-16-2024 Episodic Residual codes; unclassified (1 source) Altered mental status, unspecified; Translations: [Altered mental status, unspecified] Onset: 12-08-2024 Episodic Residual codes; unclassified (1 source) Localized edema; Translations: [Localized edema] Onset: 12-08-2024 Episodic Respiratory failure; insufficiency; arrest (adult) (20 sources) Acute hypoxemic respiratory failure; Translations: [Acute respiratory failure with hypoxia] Onset: 06-24-2024 06-27-2024 Episodic Septicemia (except in labor) (2 sources) Sepsis, unspecified organism; Translations: [Severe sepsis without septic shock] Onset: 12-19-2024 Episodic Skin and subcutaneous tissue infections (20 sources) Cellulitis; Translations: [Cellulitis, unspecified] Onset: 12-09-2024 03-09-2022 Episodic Spondylosis; intervertebral disc disorders; other [...] source) Cough, unspecified; Translations: [Cough, unspecified] Onset: 12-09-2024 Urinary tract infections (20 sources) Urinary tract infectious disease; Translations: [Urinary tract infection, site not specified] 08-13-2020 Episodic Viral infection (20 sources) Disease caused by 2019-nCoV; Translations: [COVID-19] 07-18-2021 Episodic Past or Other Problems Problem Classification Problem Date Documented Date Episodic/Chronic Abdominal hernia (15 sources) Umbilical hernia; Translations: [Umbilical hernia without obstruction or gangrene] Onset: 01-05-2017 01-05-2017 Episodic Heart valve disorders (18 sources) Heart murmur; Translations: [Cardiac murmur, unspecified] Onset: 07-02-2024 04-01-2024 Episodic Other aftercare (1 source) Encounter for surgical aftercare following surgery on the circulatory system; Translations: [Encounter for surgical aftercare following surgery on the circulatory system] Onset: 06-23-2024 Episodic Other lower respiratory disease (1 source) Other abnormalities of breathing; Translations: [Other abnormalities of breathing] Onset: 06-24-2024 Episodic Screening and history of mental health and substance abuse codes (1 source) Personal history of nicotine dependence; Translations: [Personal history of nicotine dependence] Onset: 06-06-2024 Episodic Results Test Name Value Interpretation Reference Range Facility Bedside Glucoseon 12-19-2024 FINGERSTICK GLU 112 mg/dL High 74-106 [facility] Comment on above: Result Comment: SNEHA DUNCAN OF PATIENT CARE PER NURSING PROTOCOL Performed By: #### L 501.080 ####[facility] [address] [place], [address] CBC W/Diff, Automatedon 09- 5-2024 Absolute Lymph 1.81 X10 3/uL Normal 0.83-4.51 [facility] Comment on above: Performed By: #### L 100.0100, L503.6005, L503.7505, L501.6710, L101.9900, L300.3900 ####[facility] [address] [place], [address] Absolute Neut 6.6 X10 3/uL Normal 2.0-7.7 [facility] Comment on above: Performed By: #### L 100.0100, L503.6005, L503.7505, L501.6710, L101.9900, L300.3900 ####[facility] [address] [place], [address] Basophils/100 WBC (Bld) 0.3 % Normal 0-1 [facility] Comment on above: Performed By: #### L 100.0100, L503.6005, L503.7505, L501.6710, L101.9900, L300.3900 ####[facility] [address] [place], [address] Eosinophils/100 WBC (Bld) 8.2 % High 0-5 [facility] Comment on above: Performed By: #### L 100.0100, L503.6005, L503.7505, L501.6710, L101.9900, L300.3900 ####[facility] [address] [place], [address] Erythrocyte distribution width (RBC) [Ratio] 16.8 % High 11.6-14.6 [facility] Comment on above: Performed By: #### L 100.0100, L503.6005, L503.7505, L501.6710, L101.9900, L300.3900 ####[facility] [address] [place], [address] Hematocrit (Bld) [Volume fraction] 43.2 % Normal 40-54 [facility] Comment on above: Performed By: #### L 100.0100, L503.6005, L503.7505, L501.6710, L101.9900, L300.3900 ####[facility] [address] [place], [address] Hemoglobin (Bld) [Mass/Vol] 13.9 g/dL Normal 13.0-16.5 [facility] Comment on above: Performed By: #### L 100.0100, L503.6005, L503.7505, L501.6710, L101.9900, L300.3900 ####[facility] [address] [place], [address] IG% 0.300 Normal 0.0-0.9 [facility] Comment on above: Result Comment: IG% - Immature Granulocytes (promyelocytes, myelocytes andmetamyelocytes) > 1% indicates that a LEFT SHIFT is Present. Performed By: #### L 100.0100, L503.6005, L503.7505, L501.6710, L101.9900, L300.3900 ####[facility] [address] [place], [address] Lymphocytes/100 WBC (Bld) 18.2 % Low 19-41 [facility] Comment on above: Performed By: #### L 100.0100, L503.6005, L503.7505, L501.6710, L101.9900, L300.3900 ####[facility] [address] [place], [address] MCH (RBC) [Entitic mass] 29.0 pg Normal 27.0-32.0 [facility] Comment on above: Performed By: #### L 100.0100, L503.6005, L503.7505, L501.6710, L101.9900, L300.3900 ####[facility] [address] [place], [address] MCHC (RBC) [Mass/Vol] 32.2 g/dL Normal 32-36 [facility] Comment on above: Performed By: #### L 100.0100, L503.6005, L503.7505, L501.6710, L101.9900, L300.3900 ####[facility] [address] [place], [address] MCV (RBC) [Entitic vol] 90.0 fL Normal 80-94 [facility] Comment on above: Performed By: #### L 100.0100, L503.6005, L503.7505, L501.6710, L101.9900, L300.3900 ####[facility] [address] [place], [address] Monocytes/100 WBC (Bld) 6.3 % Normal 0-10 [facility] Comment on above: Performed By: #### L 100.0100, L503.6005, L503.7505, L501.6710, L101.9900, L300.3900 ####[facility] [address] [place], [address] Neutrophils/100 WBC (Bld) 66.7 % Normal 47-70 [facility] Comment on above: Performed By: #### L 100.0100, L503.6005, L503.7505, L501.6710, L101.9900, L300.3900 ####[facility] [address] [place], [address] Nucleated RBC (Bld) [#/Vol] 0 10*3/uL Normal 0-5 [facility] Comment on above: Performed By: #### L 100.0100, L503.6005, L503.7505, L501.6710, L101.9900, L300.3900 ####[facility] [address] [place], [address] Platelet mean volume (Bld) [Entitic vol] 10.0 fL Normal 6.2-12.0 [facility] Comment on above: Performed By: #### L 100.0100, L503.6005, L503.7505, L501.6710, L101.9900, L300.3900 ####[facility] [address] [place], [address] Platelets (Bld) [#/Vol] 339 10*3/uL Normal 150-450 [facility] Comment on above: Performed By: #### L 100.0100, L503.6005, L503.7505, L501.6710, L101.9900, L300.3900 ####[facility] [address] [place], [address] RBC (Bld) [#/Vol] 4.80 10*6/uL Normal 4.6-6.2 [facility] Comment on above: Performed By: #### L 100.0100, L503.6005, L503.7505, L501.6710, L101.9900, L300.3900 ####[facility] [address] [place], [address] RDW SD 54.1 fl High 35.1-43.9 [facility] Comment on above: Performed By: #### L 100.0100, L503.6005, L503.7505, L501.6710, L101.9900, L300.3900 ####[facility] [address] [place], [address] WBC (Bld) [#/Vol] 9.9 10*3/uL Normal 4.4-11.0 [facility] Comment on above: Performed By: #### L 100.0100, L503.6005, L503.7505, L501.6710, L101.9900, L300.3900 ####[facility] [address] [place], [address] CRPon 12-19-2024 C-REACTIVE PROT 24.90 mg/L High 0.0-3.0 [facility] Comment on above: Performed By: #### L 100.0100, L503.6005, L503.7505, L501.6710, L101.9900, L300.3900 ####[facility] [address] [place], [address] Chest PA and Lateralon 12-19 Chest PA and Lateral Normal [facility] Comprehensive Metabolic Prof ilon 12-19-2024 Albumin [Mass/Vol] 3.4 g/dL Normal 3.4-4.8 [facility] Comment on above: Performed By: #### L 500.4050 ####[facility] [address] [place], [address] Albumin/Globulin [Mass ratio] 0.8 {ratio} Low 0.9-2.4 [facility] Comment on above: Performed By: #### L 500.4050 ####[facility] [address] [place], [address] ALK PHOS 267 U/L High 40-129 [facility] Comment on above: Performed By: #### L 500.4050 ####[facility] [address] [place], [address] ALT [Catalytic activity/Vol] 47 U/L Normal <=46 [facility] Comment on above: Performed By: #### L 500.4050 ####[facility] [address] [place], [address] AST [Catalytic activity/Vol] 56 U/L High <=37 [facility] Comment on above: Performed By: #### L 500.4050 ####[facility] [address] [place], [address] Bilirubin [Mass/Vol] 0.88 mg/dL Normal 0.00-1.30 [facility] Comment on above: Performed By: #### L 500.4050 ####[facility] [address] [place], [address] BUN/CRE 18.5 RATIO Normal 10-20 [facility] Comment on above: Performed By: #### L 500.4050 ####[facility] [address] [place], [address] Calcium [Mass/Vol] 9.1 mg/dL Normal 7.6-11.0 [facility] Comment on above: Performed By: #### L 500.4050 ####[facility] [address] [place], [address] Chloride [Moles/Vol] 99 mmol/L Normal 98-108 [facility] Comment on above: Performed By: #### L 500.4050 ####[facility] [address] [place], [address] CO2 [Moles/Vol] 29.4 mmol/L Normal 21.0-32.0 [facility] Comment on above: Performed By: #### L 500.4050 ####[facility] [address] [place], [address] Creatinine [Mass/Vol] 1.43 mg/dL High 0.70-1.20 [facility] Comment on above: Performed By: #### L 500.4050 ####[facility] [address] [place], [address] ECRCL 55.58 ml/min Normal 50-250 [facility] Comment on above: Performed By: #### L 500.4050 ####[facility] [address] [place], [address] GAP 11 Normal 5-15 [facility] Comment on above: Performed By: #### L 500.4050 ####[facility] [address] [place], [address] GFR/1.73 sq M.predicted among non-blacks MDRD (S/P/Bld) [Vol rate/Area] 55 mL/min/{1.73_m2} Low >60 [facility] Comment on above: Result Comment: mL/m in/1.73m2 CKD-EPI Creatinine Equation (2020) Performed By: #### L 500.4050 ####[facility] [address] [place], [address] Globulin (S) [Mass/Vol] 4.0 g/dL Normal 2.2-4.2 [facility] Comment on above: Performed By: #### L 500.4050 ####[facility] [address] [place], [address] Glucose [Mass/Vol] 158 mg/dL High 70-99 [facility] Comment on above: Performed By: #### L 500.4050 ####[facility] [address] [place], [address] Potassium [Moles/Vol] 4.3 mmol/L Normal 3.3-5.1 [facility] Comment on above: Performed By: #### L 500.4050 ####[facility] [address] [place], [address] Sodium [Moles/Vol] 139 mmol/L Normal 133-145 [facility] Comment on above: Performed By: #### L 500.4050 ####[facility] [address] [place], [address] T PROT 7.4 g/dL Normal 5.9-8.4 [facility] [facility] Comment on above: Performed By: #### L 500.4050 ####[facility] [address] [place], [place], [address] Urea nitrogen [Mass/Vol] 27 mg/dL High 4-19 [facility] Comment on above: Performed By: #### L 500.4053 ####[facility] [address] [place], [place], [address] Emergency Department Summary on 12-19-2024 Emergency Department Summary Normal [facility] Erythrocyte Sed Rateon 12-19 SED RATE 39 mm/hr High 0-20 [facility] Comment on above: Performed By: #### L 100.0100, L503.6005, L503.7505, L501.6710, L101.9900, L300.3900 ####[facility] [address] [place], [place], [id number] Foot min 3 Viewson 5 Foot min 3 Views Normal [facility] H AND P Exam - Hospitaliston 12-19-2024 H&P Exam - Hospitalist Normal [facility] Lactic Acidon 12-19-2024 Lactate [Moles/Vol] 2.3 mmol/L Invalid Interpretation Code 0.0-2.0 [facility] Comment on above: Result Comment: Crit ical Result(s) Called at: 1613 by: KAVEH JOHNSON Results read back by same. Performed By: #### L 503.6002 ####[facility] [address] [place], [address] Lactate [Moles/Vol] 3.7 mmol/L Invalid Interpretation Code 0.0-2.0 [facility] Comment on above: Order Comment: Y Result Comment: Crit ical Result(s) Called at: by:?MARK ANTHONY VALLES Resultsread back by same. Performed By: #### L 100.0100, L503.6005, L503.7505, L501.6710, L101.9900, L300.3900 ####[facility] [address] [place], [address] M100.678on 12-19-2024 M100.678 Pending SARS-CoV-2 (COVID 19) Negative INFLUENZA A Negative INFLUENZA B Negative RSV PCR Negative Normal [facility] Comment on above: Performed By: #### M 100.678 ####[facility] [address] [place], [address] Partial Thromboplast Timeon 12-19-2024 aPTT Coag (Bld) [Time] 27.8 s Normal 24.1-36.2 [facility] Comment on above: Order Comment: REDRA W. PREVIOUS SPECIMEN REJECTED DUE TOHEMOLYSIS. 12/19/24 1118 Performed By: #### L 300.4310, L300.3900 ####[facility] [address] [place], [address] Pro- Brain NATRIURETIC PEPTI Sylvia 12-19-2024 Natriuretic peptide B (Bld) [Mass/Vol] 88268 pg/mL High <=900 [facility] Comment on above: Result Comment: Hear t Failure Unlikely: < 300 pg/mLHeart Failure Likely< 50 Years: > 450 pg/mL50-75 Years: > 900 pg/mL>75 Years: > 1800 pg/mL Performed By: #### L 100.0100, L503.6005, L503.7505, L501.6710, L101.9900, L300.3900 ####[facility] [address] [place], [address] Prothrombin Time w/INRon INR Coag (PPP) [Relative time] 1.2 {INR} Normal [facility] Comment on above: Order Comment: REDRA W. PREVIOUS SPECIMEN REJECTED DUE TOHEMOLYSIS. 12/19/24 1118 Performed By: #### L 300.4310, L300.3900 ####[facility] [address] [place], [address] PT Coag (PPP) [Time] 15.6 s High 11.7-14.9 [facility] Comment on above: Order Comment: NATALIE Banks. PREVIOUS SPECIMEN REJECTED DUE TOHEMOLYSIS. 12/19/24 1118 Performed By: #### L 300.4310, L300.3900 ####[facility] [address] [place], [address] INR Normal [facility] Comment on above: Result Comment: This specimen has been REJECTED due to Laboratory criteria:Hemolyzed.ELSY has been notified of need of recollection.12/19/24 1117 Marcy Clapper Performed By: #### L 100.0100, L503.6005, L503.7505, L501.6710, L101.9900, L300.3900 ####[facility] [address] [place], [address] PROTIME Normal 11.7-14.9 [facility] Comment on above: Result Comment: This specimen has been REJECTED due to Laboratory criteria:Hemolyzed.ELSY has been notified of need of recollection.12/19/247 Marcy Clapper Performed By: #### L 100.0100, L503.6005, L503.7505, L501.6710, L101.9900, L300.3900 ####[facility] [address] [place], [address] RESPIRATORY PANEL MOLECULARo n 12-19-2024 RP PANEL Normal [facility] Comment on above: Performed By: #### M 100.638 ####[facility] [address] [place], [address] Basic Metabolic Profile (BMP )on 12-13-2024 BUN Normal 4-19 [facility] Comment on above: Result Comment: Canc elled via OM: Order cancelled - Patient discharged Performed By: #### L 100.0100, L500.2500 ####[facility] [address] [place], [address] BUN/CRE Normal 10-20 [facility] Comment on above: Result Comment: Canc elled via OM: Order cancelled - Patient discharged Performed By: #### L 100.0100, L500.2500 ####[facility] [address] [place], [address] Calcium Normal 7.6-11.0 [facility] Comment on above: Result Comment: Canc elled via OM: Order cancelled - Patient discharged Performed By: #### L 100.0100, L500.2500 ####[facility] [address] [place], [address] CL Normal 98-108 [facility] Comment on above: Result Comment: Canc elled via OM: Order cancelled - Patient discharged Performed By: #### L 100.0100, L500.2500 ####[facility] [address] [place], [address] CO2 Normal 21.0-32.0 [facility] Comment on above: Result Comment: Canc elled via OM: Order cancelled - Patient discharged Performed By: #### L 100.0100, L500.2500 ####[facility] [address] [place], [address] CREAT,SERUM Normal 0.70-1.20 [facility] Comment on above: Result Comment: Canc elled via OM: Order cancelled - Patient discharged Performed By: #### L 100.0100, L500.2500 ####[facility] [address] [place], [address] eGFR Normal >60 [facility] Comment on above: Result Comment: Canc elled via OM: Order cancelled - Patient discharged Performed By: #### L 100.0100, L500.2500 ####[facility] [address] [place], [address] GAP Normal 5-15 [facility] Comment on above: Result Comment: Canc elled via OM: Order cancelled - Patient discharged Performed By: #### L 100.0100, L500.2500 ####[facility] [address] [place], [address] GLU Normal 70-99 [facility] Comment on above: Result Comment: Canc elled via OM: Order cancelled - Patient discharged Performed By: #### L 100.0100, L500.2500 ####[facility] [address] [place], [address] Potassium Normal 3.3-5.1 [facility] Comment on above: Result Comment: Canc elled via OM: Order cancelled - Patient discharged Performed By: #### L 100.0100, L500.2500 ####[facility] [address] [place], [address] Basic Metabolic Profile (BMP) Normal 133-145 [facility] Comment on above: Result Comment: Canc elled via OM: Order cancelled - Patient discharged Performed By: #### L 100.0100, L500.2500 ####[facility] [address] [place], [address] CBC W/Diff, Automatedon 09-0 9-2024 Absolute Neut Normal 2.0-7.7 [facility] Comment on above: Result Comment: Canc elled via OM: Order cancelled - Patient discharged Performed By: #### L 100.0100, L500.2500 ####[facility] [address] [place], [address] HCT Normal 40-54 [facility] Comment on above: Result Comment: Canc elled via OM: Order cancelled - Patient discharged Performed By: #### L 100.0100, L500.2500 ####[facility] [address] [place], [address] HGB Normal 13.0-16.5 [facility] Comment on above: Result Comment: Canc elled via OM: Order cancelled - Patient discharged Performed By: #### L 100.0100, L500.2500 ####[facility] [address] [place], [address] MCH Normal 27.0-32.0 [facility] Comment on above: Result Comment: Canc elled via OM: Order cancelled - Patient discharged Performed By: #### L 100.0100, L500.2500 ####[facility] [address] [place], [address] MCHC Normal 32-36 [facility] Comment on above: Result Comment: Canc elled via OM: Order cancelled - Patient discharged Performed By: #### L 100.0100, L500.2500 ####[facility] [address] [place], [address] MCV Normal 80-94 [facility] Comment on above: Result Comment: Canc elled via OM: Order cancelled - Patient discharged Performed By: #### L 100.0100, L500.2500 ####[facility] [address] [place], [address] NEUT% Normal 47-70 [facility] Comment on above: Result Comment: Canc elled via OM: Order cancelled - Patient discharged Performed By: #### L 100.0100, L500.2500 ####[facility] [address] [place], [address] PLT Normal 150-450 [facility] Comment on above: Result Comment: Canc elled via OM: Order cancelled - Patient discharged Performed By: #### L 100.0100, L500.2500 ####[facility] [address] [place], [address] RBC Normal 4.6-6.2 [facility] Comment on above: Result Comment: Canc elled via OM: Order cancelled - Patient discharged Performed By: #### L 100.0100, L500.2500 ####[facility] [address] [place], [address] RDW CV Normal 11.6-14.6 [facility] Comment on above: Result Comment: Canc elled via OM: Order cancelled - Patient discharged Performed By: #### L 100.0100, L500.2500 ####[facility] [address] [place], [address] RDW SD Normal 35.1-43.9 [facility] Comment on above: Result Comment: Canc elled via OM: Order cancelled - Patient discharged Performed By: #### L 100.0100, L500.2500 ####[facility] [address] [place], [address] WBC Normal 4.4-11.0 [facility] Comment on above: Result Comment: Canc elled via OM: Order cancelled - Patient discharged Performed By: #### L 100.0100, L500.2500 ####[facility] [address] [place], [address] Basic Metabolic Profile (BMP )on 12-12-2024 BUN Normal 4-19 [facility] Comment on above: Result Comment: Canc elled via OM: Order cancelled - Patient discharged Performed By: #### L 500.2500, L100.0100 ####[facility] [address] [place], [address] BUN/CRE Normal 10-20 [facility] Comment on above: Result Comment: Canc elled via OM: Order cancelled - Patient discharged Performed By: #### L 500.2500, L100.0100 ####[facility] [address] [place], [address] Calcium Normal 7.6-11.0 [facility] Comment on above: Result Comment: Canc elled via OM: Order cancelled - Patient discharged Performed By: #### L 500.2500, L100.0100 ####[facility] [address] [place], [address] CL Normal 98-108 [facility] Comment on above: Result Comment: Canc elled via OM: Order cancelled - Patient discharged Performed By: #### L 500.2500, L100.0100 ####[facility] [address] [place], [address] CO2 Normal 21.0-32.0 [facility] Comment on above: Result Comment: Canc elled via OM: Order cancelled - Patient discharged Performed By: #### L 500.2500, L100.0100 ####[facility] [address] [place], [address] CREAT,SERUM Normal 0.70-1.20 [facility] Comment on above: Result Comment: Canc elled via OM: Order cancelled - Patient discharged Performed By: #### L 500.2500, L100.0100 ####[facility] [address] [place], [address] eGFR Normal >60 [facility] Comment on above: Result Comment: Canc elled via OM: Order cancelled - Patient discharged Performed By: #### L 500.2500, L100.0100 ####[facility] [address] [place], [address] GAP Normal 5-15 [facility] Comment on above: Result Comment: Canc elled via OM: Order cancelled - Patient discharged Performed By: #### L 500.2500, L100.0100 ####[facility] [address] [place], [address] GLU Normal 70-99 [facility] Comment on above: Result Comment: Canc elled via OM: Order cancelled - Patient discharged Performed By: #### L 500.2500, L100.0100 ####[facility] [address] [place], [address] Potassium Normal 3.3-5.1 [facility] Comment on above: Result Comment: Canc elled via OM: Order cancelled - Patient discharged Performed By: #### L 500.2500, L100.0100 ####[facility] [address] [place], [address] Basic Metabolic Profile (BMP) Normal 133-145 [facility] Comment on above: Result Comment: Canc elled via OM: Order cancelled - Patient discharged Performed By: #### L 500.2500, L100.0100 ####[facility] [address] [place], [address] CBC W/Diff, Automatedon 09-0 -2024 Absolute Neut Normal 2.0-7.7 [facility] Comment on above: Result Comment: Canc elled via OM: Order cancelled - Patient discharged Performed By: #### L 500.2500, L100.0100 ####[facility] [address] [place], [address] HCT Normal 40-54 [facility] Comment on above: Result Comment: Canc elled via OM: Order cancelled - Patient discharged Performed By: #### L 500.2500, L100.0100 ####[facility] [address] [place], [address] HGB Normal 13.0-16.5 [facility] Comment on above: Result Comment: Canc elled via OM: Order cancelled - Patient discharged Performed By: #### L 500.2500, L100.0100 ####[facility] [address] [place], [address] MCH Normal 27.0-32.0 [facility] Comment on above: Result Comment: Canc elled via OM: Order cancelled - Patient discharged Performed By: #### L 500.2500, L100.0100 ####[facility] [address] [place], [address] MCHC Normal 32-36 [facility] Comment on above: Result Comment: Canc elled via OM: Order cancelled - Patient discharged Performed By: #### L 500.2500, L100.0100 ####[facility] [address] [place], [address] MCV Normal 80-94 [facility] Comment on above: Result Comment: Canc elled via OM: Order cancelled - Patient discharged Performed By: #### L 500.2500, L100.0100 ####[facility] [address] [place], [address] NEUT% Normal 47-70 [facility] Comment on above: Result Comment: Canc elled via OM: Order cancelled - Patient discharged Performed By: #### L 500.2500, L100.0100 ####[facility] [address] [place], [address] PLT Normal 150-450 [facility] Comment on above: Result Comment: Canc elled via OM: Order cancelled - Patient discharged Performed By: #### L 500.2500, L100.0100 ####[facility] [address] [place], [address] RBC Normal 4.6-6.2 [facility] Comment on above: Result Comment: Canc elled via OM: Order cancelled - Patient discharged Performed By: #### L 500.2500, L100.0100 ####[facility] [address] [place], [address] RDW CV Normal 11.6-14.6 [facility] Comment on above: Result Comment: Canc elled via OM: Order cancelled - Patient discharged Performed By: #### L 500.2500, L100.0100 ####[facility] [address] [place], [address] RDW SD Normal 35.1-43.9 [facility] Comment on above: Result Comment: Canc elled via OM: Order cancelled - Patient discharged Performed By: #### L 500.2500, L100.0100 ####[facility] [address] [place], [address] WBC Normal 4.4-11.0 [facility] Comment on above: Result Comment: Canc elled via OM: Order cancelled - Patient discharged Performed By: #### L 500.2500, L100.0100 ####[facility] [address] [place], [address] Basic Metabolic Profile (BMP )on 12-11-2024 BUN Normal 4-19 [facility] Comment on above: Result Comment: Canc elled via OM: Order cancelled - Patient discharged Performed By: #### L 500.2500, L100.0100 ####[facility] [address] [place], [address] BUN/CRE Normal 10-20 [facility] Comment on above: Result Comment: Canc elled via OM: Order cancelled - Patient discharged Performed By: #### L 500.2500, L100.0100 ####[facility] [address] [place], [address] Calcium Normal 7.6-11.0 [facility] Comment on above: Result Comment: Canc elled via OM: Order cancelled - Patient discharged Performed By: #### L 500.2500, L100.0100 ####[facility] [address] [place], [address] CL Normal 98-108 [facility] Comment on above: Result Comment: Canc elled via OM: Order cancelled - Patient discharged Performed By: #### L 500.2500, L100.0100 ####[facility] [address] [place], [address] CO2 Normal 21.0-32.0 [facility] Comment on above: Result Comment: Canc elled via OM: Order cancelled - Patient discharged Performed By: #### L 500.2500, L100.0100 ####[facility] [address] [place], [address] CREAT,SERUM Normal 0.70-1.20 [facility] Comment on above: Result Comment: Canc elled via OM: Order cancelled - Patient discharged Performed By: #### L 500.2500, L100.0100 ####[facility] [address] [place], [address] eGFR Normal >60 [facility] Comment on above: Result Comment: Canc elled via OM: Order cancelled - Patient discharged Performed By: #### L 500.2500, L100.0100 ####[facility] [address] [place], [address] GAP Normal 5-15 [facility] Comment on above: Result Comment: Canc elled via OM: Order cancelled - Patient discharged Performed By: #### L 500.2500, L100.0100 ####[facility] [address] [place], [address] GLU Normal 70-99 [facility] Comment on above: Result Comment: Canc elled via OM: Order cancelled - Patient discharged Performed By: #### L 500.2500, L100.0100 ####[facility] [address] [place], [address] Potassium Normal 3.3-5.1 [facility] Comment on above: Result Comment: Canc elled via OM: Order cancelled - Patient discharged Performed By: #### L 500.2500, L100.0100 ####[facility] [address] [place], [address] Basic Metabolic Profile (BMP) Normal 133-145 [facility] Comment on above: Result Comment: Canc elled via OM: Order cancelled - Patient discharged Performed By: #### L 500.2500, L100.0100 ####[facility] [address] [place], [address] CBC W/Diff, Automatedon 09-0 -2024 Absolute Neut Normal 2.0-7.7 [facility] Comment on above: Result Comment: Canc elled via OM: Order cancelled - Patient discharged Performed By: #### L 500.2500, L100.0100 ####[facility] [address] [place], [address] HCT Normal 40-54 [facility] Comment on above: Result Comment: Canc elled via OM: Order cancelled - Patient discharged Performed By: #### L 500.2500, L100.0100 ####[facility] [address] [place], [address] HGB Normal 13.0-16.5 [facility] Comment on above: Result Comment: Canc elled via OM: Order cancelled - Patient discharged Performed By: #### L 500.2500, L100.0100 ####[facility] [address] [place], [address] MCH Normal 27.0-32.0 [facility] Comment on above: Result Comment: Canc elled via OM: Order cancelled - Patient discharged Performed By: #### L 500.2500, L100.0100 ####[facility] [address] [place], [address] MCHC Normal 32-36 [facility] Comment on above: Result Comment: Canc elled via OM: Order cancelled - Patient discharged Performed By: #### L 500.2500, L100.0100 ####[facility] [address] [place], [address] MCV Normal 80-94 [facility] Comment on above: Result Comment: Canc elled via OM: Order cancelled - Patient discharged Performed By: #### L 500.2500, L100.0100 ####[facility] [address] [place], [address] NEUT% Normal 47-70 [facility] Comment on above: Result Comment: Canc elled via OM: Order cancelled - Patient discharged Performed By: #### L 500.2500, L100.0100 ####[facility] [address] [place], [address] PLT Normal 150-450 [facility] Comment on above: Result Comment: Canc elled via OM: Order cancelled - Patient discharged Performed By: #### L 500.2500, L100.0100 ####[facility] [address] [place], [address] RBC Normal 4.6-6.2 [facility] Comment on above: Result Comment: Canc elled via OM: Order cancelled - Patient discharged Performed By: #### L 500.2500, L100.0100 ####[facility] [address] [place], [address] RDW CV Normal 11.6-14.6 [facility] Comment on above: Result Comment: Canc elled via OM: Order cancelled - Patient discharged Performed By: #### L 500.2500, L100.0100 ####[facility] [address] [place], [address] RDW SD Normal 35.1-43.9 [facility] Comment on above: Result Comment: Canc elled via OM: Order cancelled - Patient discharged Performed By: #### L 500.2500, L100.0100 ####[facility] [address] [place], [address] WBC Normal 4.4-11.0 [facility] Comment on above: Result Comment: Canc elled via OM: Order cancelled - Patient discharged Performed By: #### L 500.2500, L100.0100 ####[facility] [address] [place], [address] Basic Metabolic Profile (BMP )on 12-10-2024 BUN Normal 4-19 [facility] Comment on above: Result Comment: Canc elled via OM: Order cancelled - Patient discharged Performed By: #### L 100.0100, L500.2500 ####[facility] [address] [place], [address] BUN/CRE Normal 10-20 [facility] Comment on above: Result Comment: Canc elled via OM: Order cancelled - Patient discharged Performed By: #### L 100.0100, L500.2500 ####[facility] [address] [place], [address] Calcium Normal 7.6-11.0 [facility] Comment on above: Result Comment: Canc elled via OM: Order cancelled - Patient discharged Performed By: #### L 100.0100, L500.2500 ####[facility] [address] [place], [address] CL Normal 98-108 [facility] Comment on above: Result Comment: Canc elled via OM: Order cancelled - Patient discharged Performed By: #### L 100.0100, L500.2500 ####[facility] [address] [place], [address] CO2 Normal 21.0-32.0 [facility] Comment on above: Result Comment: Canc elled via OM: Order cancelled - Patient discharged Performed By: #### L 100.0100, L500.2500 ####[facility] [address] [place], [address] CREAT,SERUM Normal 0.70-1.20 [facility] Comment on above: Result Comment: Canc elled via OM: Order cancelled - Patient discharged Performed By: #### L 100.0100, L500.2500 ####[facility] [address] [place], [address] eGFR Normal >60 [facility] Comment on above: Result Comment: Canc elled via OM: Order cancelled - Patient discharged Performed By: #### L 100.0100, L500.2500 ####[facility] [address] [place], [address] GAP Normal 5-15 [facility] Comment on above: Result Comment: Canc elled via OM: Order cancelled - Patient discharged Performed By: #### L 100.0100, L500.2500 ####[facility] [address] [place], [address] GLU Normal 70-99 [facility] Comment on above: Result Comment: Canc elled via OM: Order cancelled - Patient discharged Performed By: #### L 100.0100, L500.2500 ####[facility] [address] [place], [address] Potassium Normal 3.3-5.1 [facility] Comment on above: Result Comment: Canc elled via OM: Order cancelled - Patient discharged Performed By: #### L 100.0100, L500.2500 ####[facility] [address] [place], [address] Basic Metabolic Profile (BMP) Normal 133-145 [facility] Comment on above: Result Comment: Canc elled via OM: Order cancelled - Patient discharged Performed By: #### L 100.0100, L500.2500 ####[facility] [address] [place], [address] CBC W/Diff, Automatedon 09-0 -2024 Absolute Neut Normal 2.0-7.7 [facility] Comment on above: Result Comment: Canc elled via OM: Order cancelled - Patient discharged Performed By: #### L 100.0100, L500.2500 ####[facility] [address] [place], [address] HCT Normal 40-54 [facility] Comment on above: Result Comment: Canc elled via OM: Order cancelled - Patient discharged Performed By: #### L 100.0100, L500.2500 ####[facility] [address] [place], [address] HGB Normal 13.0-16.5 [facility] Comment on above: Result Comment: Canc elled via OM: Order cancelled - Patient discharged Performed By: #### L 100.0100, L500.2500 ####[facility] [address] [place], [address] MCH Normal 27.0-32.0 [facility] Comment on above: Result Comment: Canc elled via OM: Order cancelled - Patient discharged Performed By: #### L 100.0100, L500.2500 ####[facility] [address] [place], [address] MCHC Normal 32-36 [facility] Comment on above: Result Comment: Canc elled via OM: Order cancelled - Patient discharged Performed By: #### L 100.0100, L500.2500 ####[facility] [address] [place], [address] MCV Normal 80-94 [facility] Comment on above: Result Comment: Canc elled via OM: Order cancelled - Patient discharged Performed By: #### L 100.0100, L500.2500 ####[facility] [address] [place], [address] NEUT% Normal 47-70 [facility] Comment on above: Result Comment: Canc elled via OM: Order cancelled - Patient discharged Performed By: #### L 100.0100, L500.2500 ####[facility] [address] [place], [address] PLT Normal 150-450 [facility] Comment on above: Result Comment: Canc elled via OM: Order cancelled - Patient discharged Performed By: #### L 100.0100, L500.2500 ####[facility] [address] [place], [address] RBC Normal 4.6-6.2 [facility] Comment on above: Result Comment: Canc elled via OM: Order cancelled - Patient discharged Performed By: #### L 100.0100, L500.2500 ####[facility] [address] [place], [address] RDW CV Normal 11.6-14.6 [facility] Comment on above: Result Comment: Canc elled via OM: Order cancelled - Patient discharged Performed By: #### L 100.0100, L500.2500 ####[facility] [address] [place], [address] RDW SD Normal 35.1-43.9 [facility] Comment on above: Result Comment: Canc elled via OM: Order cancelled - Patient discharged Performed By: #### L 100.0100, L500.2500 ####[facility] [address] [place], [address] WBC Normal 4.4-11.0 [facility] Comment on above: Result Comment: Canc elled via OM: Order cancelled - Patient discharged Performed By: #### L 100.0100, L500.2500 ####[facility] [address] [place], [address] Basic Metabolic Profile (BMP )on 12-09-2024 BUN Normal 4-19 [facility] Comment on above: Result Comment: Canc elled via OM: Order cancelled - Patient discharged Performed By: #### L 100.0100, L500.2500 ####[facility] [address] [place], [address] BUN/CRE Normal 10-20 [facility] Comment on above: Result Comment: Canc elled via OM: Order cancelled - Patient discharged Performed By: #### L 100.0100, L500.2500 ####[facility] [address] [place], [address] Calcium Normal 7.6-11.0 [facility] Comment on above: Result Comment: Canc elled via OM: Order cancelled - Patient discharged Performed By: #### L 100.0100, L500.2500 ####[facility] [address] [place], [address] CL Normal 98-108 [facility] Comment on above: Result Comment: Canc elled via OM: Order cancelled - Patient discharged Performed By: #### L 100.0100, L500.2500 ####[facility] [address] [place], [address] CO2 Normal 21.0-32.0 [facility] Comment on above: Result Comment: Canc elled via OM: Order cancelled - Patient discharged Performed By: #### L 100.0100, L500.2500 ####[facility] [address] [place], [address] CREAT,SERUM Normal 0.70-1.20 [facility] Comment on above: Result Comment: Canc elled via OM: Order cancelled - Patient discharged Performed By: #### L 100.0100, L500.2500 ####[facility] [address] [place], [address] eGFR Normal >60 [facility] Comment on above: Result Comment: Canc elled via OM: Order cancelled - Patient discharged Performed By: #### L 100.0100, L500.2500 ####[facility] [address] [place], [address] GAP Normal 5-15 [facility] Comment on above: Result Comment: Canc elled via OM: Order cancelled - Patient discharged Performed By: #### L 100.0100, L500.2500 ####[facility] [address] [place], [address] GLU Normal 70-99 [facility] Comment on above: Result Comment: Canc elled via OM: Order cancelled - Patient discharged Performed By: #### L 100.0100, L500.2500 ####[facility] [address] [place], [address] Potassium Normal 3.3-5.1 [facility] Comment on above: Result Comment: Canc elled via OM: Order cancelled - Patient discharged Performed By: #### L 100.0100, L500.2500 ####[facility] [address] [place], [address] Basic Metabolic Profile (BMP) Normal 133-145 [facility] Comment on above: Result Comment: Canc elled via OM: Order cancelled - Patient discharged Performed By: #### L 100.0100, L500.2500 ####[facility] [address] [place], [address] CBC W/Diff, Automatedon 09-0 5-2024 Absolute Neut Normal 2.0-7.7 [facility] Comment on above: Result Comment: Canc elled via OM: Order cancelled - Patient discharged Performed By: #### L 100.0100, L500.2500 ####[facility] [address] [place], [address] HCT Normal 40-54 [facility] Comment on above: Result Comment: Canc elled via OM: Order cancelled - Patient discharged Performed By: #### L 100.0100, L500.2500 ####[facility] [address] [place], [address] HGB Normal 13.0-16.5 [facility] Comment on above: Result Comment: Canc elled via OM: Order cancelled - Patient discharged Performed By: #### L 100.0100, L500.2500 ####[facility] [address] [place], [address] MCH Normal 27.0-32.0 [facility] Comment on above: Result Comment: Canc elled via OM: Order cancelled - Patient discharged Performed By: #### L 100.0100, L500.2500 ####[facility] [address] [place], [address] MCHC Normal 32-36 [facility] Comment on above: Result Comment: Canc elled via OM: Order cancelled - Patient discharged Performed By: #### L 100.0100, L500.2500 ####[facility] [address] [place], [address] MCV Normal 80-94 [facility] Comment on above: Result Comment: Canc elled via OM: Order cancelled - Patient discharged Performed By: #### L 100.0100, L500.2500 ####[facility] [address] [place], [address] NEUT% Normal 47-70 [facility] Comment on above: Result Comment: Canc elled via OM: Order cancelled - Patient discharged Performed By: #### L 100.0100, L500.2500 ####[facility] [address] [place], [address] PLT Normal 150-450 [facility] Comment on above: Result Comment: Canc elled via OM: Order cancelled - Patient discharged Performed By: #### L 100.0100, L500.2500 ####[facility] [address] [place], [address] RBC Normal 4.6-6.2 [facility] Comment on above: Result Comment: Canc elled via OM: Order cancelled - Patient discharged Performed By: #### L 100.0100, L500.2500 ####[facility] [address] [place], [address] RDW CV Normal 11.6-14.6 [facility] Comment on above: Result Comment: Canc elled via OM: Order cancelled - Patient discharged Performed By: #### L 100.0100, L500.2500 ####[facility] [address] [place], [address] RDW SD Normal 35.1-43.9 [facility] Comment on above: Result Comment: Canc elled via OM: Order cancelled - Patient discharged Performed By: #### L 100.0100, L500.2500 ####[facility] [address] [place], [address] WBC Normal 4.4-11.0 [facility] Comment on above: Result Comment: Canc elled via OM: Order cancelled - Patient discharged Performed By: #### L 100.0100, L500.2500 ####[facility] [address] [place], [address] Basic Metabolic Profile (BMP )on 12-08-2024 BUN/CRE 29.6 RATIO High 10-20 [facility] Comment on above: Performed By: #### L 500.2500, L100.0100 ####[facility] [address] [place], [address] Calcium [Mass/Vol] 9.1 mg/dL Normal 7.6-11.0 [facility] Comment on above: Performed By: #### L 500.2500, L100.0100 ####[facility] [address] [place], [address] Chloride [Moles/Vol] 98 mmol/L Normal 98-108 [facility] Comment on above: Performed By: #### L 500.2500, L100.0100 ####[facility] [address] [place], [address] CO2 [Moles/Vol] 21.9 mmol/L Normal 21.0-32.0 [facility] Comment on above: Performed By: #### L 500.2500, L100.0100 ####[facility] [address] [place], [address] Creatinine [Mass/Vol] 1.29 mg/dL High 0.70-1.20 [facility] Comment on above: Performed By: #### L 500.2500, L100.0100 ####[facility] [address] [place], [address] ECRCL 61.61 ml/min Normal 50-250 [facility] Comment on above: Performed By: #### L 500.2500, L100.0100 ####[facility] [address] [place], [address] GAP 16 High 5-15 [facility] Comment on above: Performed By: #### L 500.2500, L100.0100 ####[facility] [address] [place], [address] GFR/1.73 sq M.predicted among non-blacks MDRD (S/P/Bld) [Vol rate/Area] 62 mL/min/{1.73_m2} Normal >60 [facility] Comment on above: Result Comment: mL/m in/1.73m2 CKD-EPI Creatinine Equation (2020) Performed By: #### L 500.2500, L100.0100 ####[facility] [address] [place], [address] Glucose [Mass/Vol] 115 mg/dL High 70-99 [facility] Comment on above: Performed By: #### L 500.2500, L100.0100 ####[facility] [address] [place], [address] Potassium [Moles/Vol] 4.4 mmol/L Normal 3.3-5.1 [facility] Comment on above: Performed By: #### L 500.2500, L100.0100 ####[facility] [address] [place], [address] Sodium [Moles/Vol] 135 mmol/L Normal 133-145 [facility] Comment on above: Performed By: #### L 500.2500, L100.0100 ####[facility] [address] [place], [address] Urea nitrogen [Mass/Vol] 38 mg/dL High 4-19 [facility] Comment on above: Performed By: #### L 500.2500, L100.0100 ####[facility] [address] [place], [address] Bedside Glucoseon 12-08-2024 FINGERSTICK GLU 183 mg/dL High 74-106 [facility] Comment on above: Result Comment: SNEHA GEMENT OF PATIENT CARE PER NURSING PROTOCOL Performed By: #### L 501.080 ####[facility] [address] [place], [address] FINGERSTICK GLU 116 mg/dL High 74-106 [facility] Comment on above: Result Comment: SNEHA GEMENT OF PATIENT CARE PER NURSING PROTOCOL Performed By: #### L 501.080 ####[facility] [address] [place], [address] CBC W/Diff, Automatedon 09- Absolute Lymph 1.36 X10 3/uL Normal 0.83-4.51 [facility] Comment on above: Performed By: #### L 500.2500, L100.0100 ####[facility] [address] [place], [address] Absolute Neut 9.5 X10 3/uL High 2.0-7.7 [facility] Comment on above: Performed By: #### L 500.2500, L100.0100 ####[facility] [address] [place], [address] Basophils/100 WBC (Bld) 0.5 % Normal 0-1 [facility] Comment on above: Performed By: #### L 500.2500, L100.0100 ####[facility] [address] [place], [address] Eosinophils/100 WBC (Bld) 0.3 % Normal 0-5 [facility] Comment on above: Performed By: #### L 500.2500, L100.0100 ####[facility] [address] [place], [address] Erythrocyte distribution width (RBC) [Ratio] 15.7 % High 11.6-14.6 [facility] Comment on above: Performed By: #### L 500.2500, L100.0100 ####[facility] [address] [place], [address] Hematocrit (Bld) [Volume fraction] 42.4 % Normal 40-54 [facility] Comment on above: Performed By: #### L 500.2500, L100.0100 ####[facility] [address] [place], [address] Hemoglobin (Bld) [Mass/Vol] 13.8 g/dL Normal 13.0-16.5 [facility] Comment on above: Performed By: #### L 500.2500, L100.0100 ####[facility] [address] [place], [address] IG% 0.300 Normal 0.0-0.9 [facility] Comment on above: Result Comment: IG% - Immature Granulocytes (promyelocytes, myelocytes andmetamyelocytes) > 1% indicates that a LEFT SHIFT is Present. Performed By: #### L 500.2500, L100.0100 ####[facility] [address] [place], [address] Lymphocytes/100 WBC (Bld) 11.4 % Low 19-41 [facility] Comment on above: Performed By: #### L 500.2500, L100.0100 ####[facility] [address] [place], [address] MCH (RBC) [Entitic mass] 29.0 pg Normal 27.0-32.0 [facility] Comment on above: Performed By: #### L 500.2500, L100.0100 ####[facility] [address] [place], [address] MCHC (RBC) [Mass/Vol] 32.5 g/dL Normal 32-36 [facility] Comment on above: Performed By: #### L 500.2500, L100.0100 ####[facility] [address] [place], [address] MCV (RBC) [Entitic vol] 89.1 fL Normal 80-94 [facility] Comment on above: Performed By: #### L 500.2500, L100.0100 ####[facility] [address] [place], [address] Monocytes/100 WBC (Bld) 7.8 % Normal 0-10 [facility] Comment on above: Performed By: #### L 500.2500, L100.0100 ####[facility] [address] [place], [address] Neutrophils/100 WBC (Bld) 79.7 % High 47-70 [facility] Comment on above: Performed By: #### L 500.2500, L100.0100 ####[facility] [address] [place], [address] Nucleated RBC (Bld) [#/Vol] 0 10*3/uL Normal 0-5 [facility] Comment on above: Performed By: #### L 500.2500, L100.0100 ####[facility] [address] [place], [address] Platelet mean volume (Bld) [Entitic vol] 9.0 fL Normal 6.2-12.0 [facility] Comment on above: Performed By: #### L 500.2500, L100.0100 ####[facility] [address] [place], [address] Platelets (Bld) [#/Vol] 455 10*3/uL High 150-450 [facility] Comment on above: Performed By: #### L 500.2500, L100.0100 ####[facility] [address] [place], [address] RBC (Bld) [#/Vol] 4.76 10*6/uL Normal 4.6-6.2 [facility] Comment on above: Performed By: #### L 500.2500, L100.0100 ####[facility] [address] [place], [address] RDW SD 50.1 fl High 35.1-43.9 [facility] Comment on above: Performed By: #### L 500.2500, L100.0100 ####[facility] [address] [place], [address] WBC (Bld) [#/Vol] 11.9 10*3/uL High 4.4-11.0 [facility] Comment on above: Performed By: #### L 500.2500, L100.0100 ####[facility] [address] [place], [address] Basic Metabolic Profile (BMP )on 12-07-2024 BUN/CRE 34.8 RATIO High 10-20 [facility] Comment on above: Performed By: #### L 100.0100, L500.2500 ####[facility] [address] [place], [address] Calcium [Mass/Vol] 8.8 mg/dL Normal 7.6-11.0 [facility] Comment on above: Performed By: #### L 100.0100, L500.2500 ####[facility] [address] [place], [address] Chloride [Moles/Vol] 96 mmol/L Low 98-108 [facility] Comment on above: Performed By: #### L 100.0100, L500.2500 ####[facility] [address] [place], [address] CO2 [Moles/Vol] 25.0 mmol/L Normal 21.0-32.0 [facility] Comment on above: Performed By: #### L 100.0100, L500.2500 ####[facility] [address] [place], [address] Creatinine [Mass/Vol] 1.12 mg/dL Normal 0.70-1.20 [facility] Comment on above: Performed By: #### L 100.0100, L500.2500 ####[facility] [address] [place], [address] ECRCL 70.97 ml/min Normal 50-250 [facility] Comment on above: Performed By: #### L 100.0100, L500.2500 ####[facility] [address] [place], [address] GAP 13 Normal 5-15 [facility] Comment on above: Performed By: #### L 100.0100, L500.2500 ####[facility] [address] [place], [address] GFR/1.73 sq M.predicted among non-blacks MDRD (S/P/Bld) [Vol rate/Area] 73 mL/min/{1.73_m2} Normal >60 [facility] Comment on above: Result Comment: mL/m in/1.73m2 CKD-EPI Creatinine Equation (2020) Performed By: #### L 100.0100, L500.2500 ####[facility] [address] [place], [address] Glucose [Mass/Vol] 93 mg/dL Normal 70-99 [facility] Comment on above: Performed By: #### L 100.0100, L500.2500 ####[facility] [address] [place], [address] Potassium [Moles/Vol] 4.0 mmol/L Normal 3.3-5.1 [facility] Comment on above: Result Comment: Hemo lysis present, Results??could be affected.?? Performed By: #### L 100.0100, L500.2500 ####[facility] [address] [place], [address] Sodium [Moles/Vol] 134 mmol/L Normal 133-145 [facility] Comment on above: Performed By: #### L 100.0100, L500.2500 ####[facility] [address] [place], [address] Urea nitrogen [Mass/Vol] 39 mg/dL High 4-19 [facility] Comment on above: Performed By: #### L 100.0100, L500.2500 ####[facility] [address] [place], [address] Bedside Glucoseon 12-07-2024 FINGERSTICK GLU 151 mg/dL High 74-106 [facility] Comment on above: Result Comment: SNEHA GEMENT OF PATIENT CARE PER NURSING PROTOCOL Performed By: #### L 501.080 ####[facility] [address] [place], [address] FINGERSTICK GLU 140 mg/dL High 74-106 [facility] Comment on above: Result Comment: SNEHA GEMENT OF PATIENT CARE PER NURSING PROTOCOL Performed By: #### L 501.080 ####[facility] [address] [place], [address] FINGERSTICK GLU 188 mg/dL High 74-106 [facility] Comment on above: Result Comment: SNEHA GEMENT OF PATIENT CARE PER NURSING PROTOCOL Performed By: #### L 501.080 ####[facility] [address] [place], [address] FINGERSTICK GLU 94 mg/dL Normal 74-106 [facility] Comment on above: Result Comment: SNEHA DUNCAN OF PATIENT CARE PER NURSING PROTOCOL Performed By: #### L 501.080 ####[facility] [address] [place], [address] CBC W/Diff, Automatedon 09-0 3-5 Absolute Lymph 1.24 X10 3/uL Normal 0.83-4.51 [facility] Comment on above: Performed By: #### L 100.0100, L500.2500 ####[facility] [address] [place], [address] Absolute Neut 7.5 X10 3/uL Normal 2.0-7.7 [facility] Comment on above: Performed By: #### L 100.0100, L500.2500 ####[facility] [address] [place], [address] Basophils/100 WBC (Bld) 0.5 % Normal 0-1 [facility] Comment on above: Performed By: #### L 100.0100, L500.2500 ####[facility] [address] [place], [address] Eosinophils/100 WBC (Bld) 1.8 % Normal 0-5 [facility] Comment on above: Performed By: #### L 100.0100, L500.2500 ####[facility] [address] [place], [address] Erythrocyte distribution width (RBC) [Ratio] 15.5 % High 11.6-14.6 [facility] Comment on above: Performed By: #### L 100.0100, L500.2500 ####[facility] [address] [place], [address] Hematocrit (Bld) [Volume fraction] 40.3 % Normal 40-54 [facility] Comment on above: Performed By: #### L 100.0100, L500.2500 ####[facility] [address] [place], [address] Hemoglobin (Bld) [Mass/Vol] 13.1 g/dL Normal 13.0-16.5 [facility] Comment on above: Performed By: #### L 100.0100, L500.2500 ####[facility] [address] [place], [address] IG% 0.400 Normal 0.0-0.9 [facility] Comment on above: Result Comment: IG% - Immature Granulocytes (promyelocytes, myelocytes andmetamyelocytes) > 1% indicates that a LEFT SHIFT is Present. Performed By: #### L 100.0100, L500.2500 ####[facility] [address] [place], [address] Lymphocytes/100 WBC (Bld) 12.9 % Low 19-41 [facility] Comment on above: Performed By: #### L 100.0100, L500.2500 ####[facility] [address] [place], [address] MCH (RBC) [Entitic mass] 29.2 pg Normal 27.0-32.0 [facility] Comment on above: Performed By: #### L 100.0100, L500.2500 ####[facility] [address] [place], [address] MCHC (RBC) [Mass/Vol] 32.5 g/dL Normal 32-36 [facility] Comment on above: Performed By: #### L 100.0100, L500.2500 ####[facility] [address] [place], [address] MCV (RBC) [Entitic vol] 89.8 fL Normal 80-94 [facility] Comment on above: Performed By: #### L 100.0100, L500.2500 ####[facility] [address] [place], [address] Monocytes/100 WBC (Bld) 6.5 % Normal 0-10 [facility] Comment on above: Performed By: #### L 100.0100, L500.2500 ####[facility] [address] [place], [address] Neutrophils/100 WBC (Bld) 77.9 % High 47-70 [facility] Comment on above: Performed By: #### L 100.0100, L500.2500 ####[facility] [address] [place], [address] Nucleated RBC (Bld) [#/Vol] 0 10*3/uL Normal 0-5 [facility] Comment on above: Performed By: #### L 100.0100, L500.2500 ####[facility] [address] [place], [address] Platelet mean volume (Bld) [Entitic vol] 9.4 fL Normal 6.2-12.0 [facility] Comment on above: Performed By: #### L 100.0100, L500.2500 ####[facility] [address] [place], [address] Platelets (Bld) [#/Vol] 402 10*3/uL Normal 150-450 [facility] Comment on above: Performed By: #### L 100.0100, L500.2500 ####[facility] [address] [place], [address] RBC (Bld) [#/Vol] 4.49 10*6/uL Low 4.6-6.2 [facility] Comment on above: Performed By: #### L 100.0100, L500.2500 ####[facility] [address] [place], [address] RDW SD 50.4 fl High 35.1-43.9 [facility] Comment on above: Performed By: #### L 100.0100, L500.2500 ####[facility] [address] [place], [address] WBC (Bld) [#/Vol] 9.6 10*3/uL Normal 4.4-11.0 [facility] Comment on above: Performed By: #### L 100.0100, L500.2500 ####[facility] [address] [place], [address] Vancomycin, Random Levelon 0 - VANCO, RANDOM 17.5 ug/mL High 0.0-15.0 [facility] Comment on above: Result Comment: VANC OMYCIN STANDARD DRUG THERAPY: CRITICAL VALUE IS > 15.0 mg/LVANCOMYCIN HIGH INTENSITY THERAPY: CRITICAL VALUE IS > 20.0 mg/LPLEASE CONTACT PHARMACY SERVICES (#8318) FOR INTERPRETATIONOF RESULTS. THIS RESULT DOES NOT REPRESENT A PEAK OR TROUGHLEVEL FOR THIS DRUG. Performed By: #### L 501.8850 ####[facility] [address] [place], [address] Vancomycin, Trough Levelon 0 - VANCO, TROUGH 23.8 ug/mL High 5.0-15.0 [facility] Comment on above: Order Comment: Comme nts: Trough to be drawn 30 mins prior to scheduled [id number] Result Comment: [place] mmended goal trough ranges are generally 10-15 mcg/mlfor less severe/complicated infections such as cellulitisor UTI and 15-20 mcg/ml for more severe/complicatedinfections such as bacteremia/sepsis, osteomyelitis,pneumonia or meningitis. Goal trough ranges should takeinto account indication, patient-specific factors andorganism PORFIRIO.VANCOMYCIN STANDARED DRUG THERAPY TROUGH LEVEL: 5.0 - 15.0 mg/LVANCOMYCIN HIGH INTENSITY THERAPY TROUGH LEVEL: 15.0 - 20.0 mg/LHigh Intensity therapy recommended for serious lifethreatening infections include:- Kiwocndvun-Isqbscxlxalu-Oowzcgvxu (Ventilator/Healtcare Associated)-SepsisPLEASE CONTACT PHARMACY SERVICES (#4106) FOR INTERPRETATIONOF RESULTS. Performed By: #### L 501.8820 ####[facility] [address] [place], [address] Basic Metabolic Profile (BMP )on 12-06-2024 BUN/CRE 37.3 RATIO High 10-20 [facility] Comment on above: Performed By: #### L 500.2500, L100.0100 ####[facility] [address] [place], [address] Calcium [Mass/Vol] 8.8 mg/dL Normal 7.6-11.0 [facility] Comment on above: Performed By: #### L 500.2500, L100.0100 ####[facility] [address] [place], [address] Chloride [Moles/Vol] 100 mmol/L Normal 98-108 [facility] Comment on above: Performed By: #### L 500.2500, L100.0100 ####[facility] [address] [place], [address] CO2 [Moles/Vol] 22.3 mmol/L Normal 21.0-32.0 [facility] Comment on above: Performed By: #### L 500.2500, L100.0100 ####[facility] [address] [place], [address] Creatinine [Mass/Vol] 1.21 mg/dL High 0.70-1.20 [facility] Comment on above: Performed By: #### L 500.2500, L100.0100 ####[facility] [address] [place], [address] ECRCL 65.69 ml/min Normal 50-250 [facility] Comment on above: Performed By: #### L 500.2500, L100.0100 ####[facility] [address] [place], [address] GAP 12 Normal 5-15 [facility] Comment on above: Performed By: #### L 500.2500, L100.0100 ####[facility] [address] [place], [address] GFR/1.73 sq M.predicted among non-blacks MDRD (S/P/Bld) [Vol rate/Area] 67 mL/min/{1.73_m2} Normal >60 [facility] Comment on above: Result Comment: mL/m in/1.73m2 CKD-EPI Creatinine Equation (2020) Performed By: #### L 500.2500, L100.0100 ####[facility] [address] [place], [address] Glucose [Mass/Vol] 160 mg/dL High 70-99 [facility] Comment on above: Performed By: #### L 500.2500, L100.0100 ####[facility] [address] [place], [address] Potassium [Moles/Vol] 4.0 mmol/L Normal 3.3-5.1 [facility] Comment on above: Performed By: #### L 500.2500, L100.0100 ####[facility] [address] [place], [address] Sodium [Moles/Vol] 134 mmol/L Normal 133-145 [facility] Comment on above: Performed By: #### L 500.2500, L100.0100 ####[facility] [address] [place], [address] Urea nitrogen [Mass/Vol] 45 mg/dL High 4-19 [facility] Comment on above: Performed By: #### L 500.2500, L100.0100 ####[facility] [address] [place], [address] Bedside Glucoseon 12-06-2024 FINGERSTICK GLU 125 mg/dL High 74-106 [facility] Comment on above: Result Comment: SNEHA GEMENT OF PATIENT CARE PER NURSING PROTOCOL Performed By: #### L 501.080 ####[facility] [address] [place], [address] FINGERSTICK GLU 147 mg/dL High 74-106 [facility] Comment on above: Result Comment: SNEHA GEMENT OF PATIENT CARE PER NURSING PROTOCOL Performed By: #### L 501.080 ####[facility] [address] [place], [address] FINGERSTICK GLU 198 mg/dL High 74-106 [facility] Comment on above: Result Comment: SNEHA GEMENT OF PATIENT CARE PER NURSING PROTOCOL Performed By: #### L 501.080 ####[facility] [address] [place], [address] FINGERSTICK GLU 147 mg/dL High 74-106 [facility] Comment on above: Result Comment: SNEHA GEMENT OF PATIENT CARE PER NURSING PROTOCOL Performed By: #### L 501.080 ####[facility] [address] [place], [address] CBC W/Diff, Automatedon 09-0 Absolute Lymph 1.46 X10 3/uL Normal 0.83-4.51 [facility] Comment on above: Performed By: #### L 500.2500, L100.0100 ####[facility] [address] [place], [address] Absolute Neut 9.2 X10 3/uL High 2.0-7.7 [facility] Comment on above: Performed By: #### L 500.2500, L100.0100 ####[facility] [address] [place], [address] Basophils/100 WBC (Bld) 0.5 % Normal 0-1 [facility] Comment on above: Performed By: #### L 500.2500, L100.0100 ####[facility] [address] [place], [address] Eosinophils/100 WBC (Bld) 0.9 % Normal 0-5 [facility] Comment on above: Performed By: #### L 500.2500, L100.0100 ####[facility] [address] [place], [address] Erythrocyte distribution width (RBC) [Ratio] 15.3 % High 11.6-14.6 [facility] Comment on above: Performed By: #### L 500.2500, L100.0100 ####[facility] [address] [place], [address] Hematocrit (Bld) [Volume fraction] 39.4 % Low 40-54 [facility] Comment on above: Performed By: #### L 500.2500, L100.0100 ####[facility] [address] [place], [address] Hemoglobin (Bld) [Mass/Vol] 12.9 g/dL Low 13.0-16.5 [facility] Comment on above: Performed By: #### L 500.2500, L100.0100 ####[facility] [address] [place], [address] IG% 0.400 Normal 0.0-0.9 [facility] Comment on above: Result Comment: IG% - Immature Granulocytes (promyelocytes, myelocytes andmetamyelocytes) > 1% indicates that a LEFT SHIFT is Present. Performed By: #### L 500.2500, L100.0100 ####[facility] [address] [place], [address] Lymphocytes/100 WBC (Bld) 12.6 % Low 19-41 [facility] Comment on above: Performed By: #### L 500.2500, L100.0100 ####[facility] [address] [place], [address] MCH (RBC) [Entitic mass] 29.4 pg Normal 27.0-32.0 [facility] Comment on above: Performed By: #### L 500.2500, L100.0100 ####[facility] [address] [place], [address] MCHC (RBC) [Mass/Vol] 32.7 g/dL Normal 32-36 [facility] Comment on above: Performed By: #### L 500.2500, L100.0100 ####[facility] [address] [place], [address] MCV (RBC) [Entitic vol] 89.7 fL Normal 80-94 [facility] Comment on above: Performed By: #### L 500.2500, L100.0100 ####[facility] [address] [place], [address] Monocytes/100 WBC (Bld) 6.5 % Normal 0-10 [facility] Comment on above: Performed By: #### L 500.2500, L100.0100 ####[facility] [address] [place], [address] Neutrophils/100 WBC (Bld) 79.1 % High 47-70 [facility] Comment on above: Performed By: #### L 500.2500, L100.0100 ####[facility] [address] [place], [address] Nucleated RBC (Bld) [#/Vol] 0 10*3/uL Normal 0-5 [facility] Comment on above: Performed By: #### L 500.2500, L100.0100 ####[facility] [address] [place], [address] Platelet mean volume (Bld) [Entitic vol] 9.2 fL Normal 6.2-12.0 [facility] Comment on above: Performed By: #### L 500.2500, L100.0100 ####[facility] [address] [place], [address] Platelets (Bld) [#/Vol] 399 10*3/uL Normal 150-450 [facility] Comment on above: Performed By: #### L 500.2500, L100.0100 ####[facility] [address] [place], [address] RBC (Bld) [#/Vol] 4.39 10*6/uL Low 4.6-6.2 [facility] Comment on above: Performed By: #### L 500.2500, L100.0100 ####[facility] [address] [place], [address] RDW SD 49.5 fl High 35.1-43.9 [facility] Comment on above: Performed By: #### L 500.2500, L100.0100 ####[facility] [address] [place], [address] WBC (Bld) [#/Vol] 11.6 10*3/uL High 4.4-11.0 [facility] Comment on above: Performed By: #### L 500.2500, L100.0100 ####[facility] [address] [place], [address] Consultation - Surgicalon Consultation - Surgical Normal [facility] Wound Cultureon 12-06-2024 Normal [facility] Comment on above: Performed By: #### M 100.2000, M100.3000 ####[facility] [address] [place], [address] Basic Metabolic Profile (BMP )on 12-05-2024 BUN/CRE 36.9 RATIO High 10-20 [facility] Comment on above: Performed By: #### L 500.2500, L100.0100 ####[facility] [address] [place], [address] Calcium [Mass/Vol] 8.9 mg/dL Normal 7.6-11.0 [facility] Comment on above: Performed By: #### L 500.2500, L100.0100 ####[facility] [address] [place], [address] Chloride [Moles/Vol] 95 mmol/L Low 98-108 [facility] Comment on above: Performed By: #### L 500.2500, L100.0100 ####[facility] [address] [place], [address] CO2 [Moles/Vol] 21.9 mmol/L Normal 21.0-32.0 [facility] Comment on above: Performed By: #### L 500.2500, L100.0100 ####[facility] [address] [place], [address] Creatinine [Mass/Vol] 1.20 mg/dL Normal 0.70-1.20 [facility] Comment on above: Performed By: #### L 500.2500, L100.0100 ####[facility] [address] [place], [address] ECRCL 66.24 ml/min Normal 50-250 [facility] Comment on above: Performed By: #### L 500.2500, L100.0100 ####[facility] [address] [place], [address] GAP 14 Normal 5-15 [facility] Comment on above: Performed By: #### L 500.2500, L100.0100 ####[facility] [address] [place], [address] GFR/1.73 sq M.predicted among non-blacks MDRD (S/P/Bld) [Vol rate/Area] 68 mL/min/{1.73_m2} Normal >60 [facility] Comment on above: Result Comment: mL/m in/1.73m2 CKD-EPI Creatinine Equation (2020) Performed By: #### L 500.2500, L100.0100 ####[facility] [address] [place], [address] Glucose [Mass/Vol] 102 mg/dL High 70-99 [facility] Comment on above: Performed By: #### L 500.2500, L100.0100 ####[facility] [address] [place], [address] Potassium [Moles/Vol] 4.0 mmol/L Normal 3.3-5.1 [facility] Comment on above: Performed By: #### L 500.2500, L100.0100 ####[facility] [address] [place], [address] Sodium [Moles/Vol] 132 mmol/L Low 133-145 [facility] Comment on above: Performed By: #### L 500.2500, L100.0100 ####[facility] [address] [place], [address] Urea nitrogen [Mass/Vol] 44 mg/dL High 4-19 [facility] Comment on above: Performed By: #### L 500.2500, L100.0100 ####[facility] [address] [place], [address] Bedside Glucoseon 12-05-2024 FINGERSTICK GLU 161 mg/dL High 74-106 [facility] Comment on above: Result Comment: SNEHA GEMENT OF PATIENT CARE PER NURSING PROTOCOL Performed By: #### L 501.080 ####[facility] [address] [place], [address] FINGERSTICK GLU 170 mg/dL High 74-106 [facility] Comment on above: Result Comment: SNEHA GEMENT OF PATIENT CARE PER NURSING PROTOCOL Performed By: #### L 501.080 ####[facility] [address] [place], [address] FINGERSTICK GLU 197 mg/dL High 74-106 [facility] Comment on above: Result Comment: SNEHA GEMENT OF PATIENT CARE PER NURSING PROTOCOL Performed By: #### L 501.080 ####[facility] [address] [place], [address] FINGERSTICK GLU 103 mg/dL Normal 74-106 [facility] Comment on above: Result Comment: SNEHA GEMENT OF PATIENT CARE PER NURSING PROTOCOL Performed By: #### L 501.080 ####[facility] [address] [place], [address] CBC W/Diff, Automatedon 09-0 -2024 Absolute Lymph 1.78 X10 3/uL Normal 0.83-4.51 [facility] Comment on above: Performed By: #### L 500.2500, L100.0100 ####[facility] [address] [place], [address] Absolute Neut 10.8 X10 3/uL High 2.0-7.7 [facility] Comment on above: Performed By: #### L 500.2500, L100.0100 ####[facility] [address] [place], [address] Basophils/100 WBC (Bld) 0.4 % Normal 0-1 [facility] Comment on above: Performed By: #### L 500.2500, L100.0100 ####[facility] [address] [place], [address] Eosinophils/100 WBC (Bld) 0.8 % Normal 0-5 [facility] Comment on above: Performed By: #### L 500.2500, L100.0100 ####[facility] [address] [place], [address] Erythrocyte distribution width (RBC) [Ratio] 15.1 % High 11.6-14.6 [facility] Comment on above: Performed By: #### L 500.2500, L100.0100 ####[facility] [address] [place], [address] Hematocrit (Bld) [Volume fraction] 39.1 % Low 40-54 [facility] Comment on above: Performed By: #### L 500.2500, L100.0100 ####[facility] [address] [place], [address] Hemoglobin (Bld) [Mass/Vol] 12.8 g/dL Low 13.0-16.5 [facility] Comment on above: Performed By: #### L 500.2500, L100.0100 ####[facility] [address] [place], [address] IG% 0.600 Normal 0.0-0.9 [facility] Comment on above: Result Comment: IG% - Immature Granulocytes (promyelocytes, myelocytes andmetamyelocytes) > 1% indicates that a LEFT SHIFT is Present. Performed By: #### L 500.2500, L100.0100 ####[facility] [address] [place], [address] Lymphocytes/100 WBC (Bld) 13.1 % Low 19-41 [facility] Comment on above: Performed By: #### L 500.2500, L100.0100 ####[facility] [address] [place], [address] MCH (RBC) [Entitic mass] 29.1 pg Normal 27.0-32.0 [facility] Comment on above: Performed By: #### L 500.2500, L100.0100 ####[facility] [address] [place], [address] MCHC (RBC) [Mass/Vol] 32.7 g/dL Normal 32-36 [facility] Comment on above: Performed By: #### L 500.2500, L100.0100 ####[facility] [address] [place], [address] MCV (RBC) [Entitic vol] 88.9 fL Normal 80-94 [facility] Comment on above: Performed By: #### L 500.2500, L100.0100 ####[facility] [address] [place], [address] Monocytes/100 WBC (Bld) 5.8 % Normal 0-10 [facility] Comment on above: Performed By: #### L 500.2500, L100.0100 ####[facility] [address] [place], [address] Neutrophils/100 WBC (Bld) 79.3 % High 47-70 [facility] Comment on above: Performed By: #### L 500.2500, L100.0100 ####[facility] [address] [place], [address] Nucleated RBC (Bld) [#/Vol] 0 10*3/uL Normal 0-5 [facility] Comment on above: Performed By: #### L 500.2500, L100.0100 ####[facility] [address] [place], [address] Platelet mean volume (Bld) [Entitic vol] 9.3 fL Normal 6.2-12.0 [facility] Comment on above: Performed By: #### L 500.2500, L100.0100 ####[facility] [address] [place], [address] Platelets (Bld) [#/Vol] 458 10*3/uL High 150-450 [facility] Comment on above: Performed By: #### L 500.2500, L100.0100 ####[facility] [address] [place], [address] RBC (Bld) [#/Vol] 4.40 10*6/uL Low 4.6-6.2 [facility] Comment on above: Performed By: #### L 500.2500, L100.0100 ####[facility] [address] [place], [address] RDW SD 48.7 fl High 35.1-43.9 [facility] Comment on above: Performed By: #### L 500.2500, L100.0100 ####[facility] [address] [place], [address] WBC (Bld) [#/Vol] 13.6 10*3/uL High 4.4-11.0 [facility] Comment on above: Performed By: #### L 500.2500, L100.0100 ####[facility] [address] [place], [address] Foot min 3 Viewson 5 Foot min 3 Views Normal [facility] Vancomycin, Trough Levelon 0 12-05-2024 VANCO, TROUGH 20.3 ug/mL High 5.0-15.0 [facility] Comment on above: Order Comment: Comme nts: DRAW 30 MIN PRIOR TO [id number] Result Comment: Milton mmended goal trough ranges are generally 10-15 mcg/mlfor less severe/complicated infections such as cellulitisor UTI and 15-20 mcg/ml for more severe/complicatedinfections such as bacteremia/sepsis, osteomyelitis,pneumonia or meningitis. Goal trough ranges should takeinto account indication, patient-specific factors andorganism PORFIRIO.VANCOMYCIN STANDARED DRUG THERAPY TROUGH LEVEL: 5.0 - 15.0 mg/LVANCOMYCIN HIGH INTENSITY THERAPY TROUGH LEVEL: 15.0 - 20.0 mg/LHigh Intensity therapy recommended for serious lifethreatening infections include:- Gjypkgvwhn-Mzqidgdszsgk-Gpdhaklfd (Ventilator/Healtcare Associated)-SepsisPLEASE CONTACT PHARMACY SERVICES (#1765) FOR INTERPRETATIONOF RESULTS. Performed By: #### L 501.8861 ####[facility] [address] [place], [address] Bedside Glucoseon 12-04-2024 FINGERSTICK GLU 174 mg/dL High 74-106 [facility] Comment on above: Result Comment: SNEHA GEMENT OF PATIENT CARE PER NURSING PROTOCOL Performed By: #### L 501.080 ####[facility] [address] [place], [address] FINGERSTICK GLU 144 mg/dL High 74-106 [facility] Comment on above: Result Comment: SNEHA GEMENT OF PATIENT CARE PER NURSING PROTOCOL Performed By: #### L 501.080 ####[facility] [address] [place], [address] FINGERSTICK GLU 153 mg/dL High 74-106 [facility] Comment on above: Result Comment: SNEHA GEMENT OF PATIENT CARE PER NURSING PROTOCOL Performed By: #### L 501.080 ####[facility] [address] [place], [address] FINGERSTICK GLU 110 mg/dL High -106 [facility] Comment on above: Result Comment: SNEHA GEMENT OF PATIENT CARE PER NURSING PROTOCOL Performed By: #### L 501.080 ####[facility] [address] [place], [address] Basic Metabolic Profile (BMP )on 12-03-2024 BUN/CRE 31.6 RATIO High 10-20 [facility] Comment on above: Performed By: #### L 500.2500, L100.0100 ####[facility] [address] [place], [address] Calcium [Mass/Vol] 8.8 mg/dL Normal 7.6-11.0 [facility] Comment on above: Performed By: #### L 500.2500, L100.0100 ####[facility] [address] [place], [address] Chloride [Moles/Vol] 95 mmol/L Low 98-108 [facility] [place] Comment on above: Performed By: #### L 500.2500, L100.0100 ####[facility] [address] [place], [address] CO2 [Moles/Vol] 23.6 mmol/L Normal 21.0-32.0 [facility] Comment on above: Performed By: #### L 500.2500, L100.0100 ####[facility] [address] [place], [address] Creatinine [Mass/Vol] 1.17 mg/dL Normal 0.70-1.20 [facility] Comment on above: Performed By: #### L 500.2500, L100.0100 ####[facility] [address] [place], [address] ECRCL 67.93 ml/min Normal 50-250 [facility] Comment on above: Performed By: #### L 500.2500, L100.0100 ####[facility] [address] [place], [address] GAP 13 Normal 5-15 [facility] Comment on above: Performed By: #### L 500.2500, L100.0100 ####[facility] [address] [place], [address] GFR/1.73 sq M.predicted among non-blacks MDRD (S/P/Bld) [Vol rate/Area] 70 mL/min/{1.73_m2} Normal >60 [facility] Comment on above: Result Comment: mL/m in/1.73m2 CKD-EPI Creatinine Equation (2020) Performed By: #### L 500.2500, L100.0100 ####[facility] [address] [place], [address] Glucose [Mass/Vol] 102 mg/dL High 70-99 [facility] Comment on above: Performed By: #### L 500.2500, L100.0100 ####[facility] [address] [place], [address] Potassium [Moles/Vol] 4.4 mmol/L Normal 3.3-5.1 [facility] Comment on above: Performed By: #### L 500.2500, L100.0100 ####[facility] [address] [place], [address] Sodium [Moles/Vol] 132 mmol/L Low 133-145 [facility] Comment on above: Performed By: #### L 500.2500, L100.0100 ####[facility] [address] [place], [address] Urea nitrogen [Mass/Vol] 37 mg/dL High 4-19 [facility] Comment on above: Performed By: #### L 500.2500, L100.0100 ####[facility] [address] [place], [address] Bedside Glucoseon 12-03-2024 FINGERSTICK GLU 151 mg/dL High 74-106 [facility] Comment on above: Result Comment: SNEHA GEMENT OF PATIENT CARE PER NURSING PROTOCOL Performed By: #### L 501.080 ####[facility] [address] [place], [address] FINGERSTICK GLU 205 mg/dL High 74-106 [facility] Comment on above: Result Comment: SNEHA GEMENT OF PATIENT CARE PER NURSING PROTOCOL Performed By: #### L 501.080 ####[facility] [address] [place], [address] FINGERSTICK GLU 167 mg/dL High 74-106 [facility] Comment on above: Result Comment: SNEHA GEMENT OF PATIENT CARE PER NURSING PROTOCOL Performed By: #### L 501.080 ####[facility] [address] [place], [address] FINGERSTICK GLU 109 mg/dL High 74-106 [facility] Comment on above: Result Comment: SNEHA GEMENT OF PATIENT CARE PER NURSING PROTOCOL Performed By: #### L 501.080 ####[facility] [address] [place], [address] CBC W/Diff, Automatedon 08-3 0-2025 Absolute Lymph 1.66 X10 3/uL Normal 0.83-4.51 [facility] Comment on above: Performed By: #### L 500.2500, L100.0100 ####[facility] [address] [place], [address] Absolute Neut 9.7 X10 3/uL High 2.0-7.7 [facility] Comment on above: Performed By: #### L 500.2500, L100.0100 ####[facility] [address] [place], [address] Basophils/100 WBC (Bld) 0.3 % Normal 0-1 [facility] Comment on above: Performed By: #### L 500.2500, L100.0100 ####[facility] [address] [place], [address] Eosinophils/100 WBC (Bld) 1.5 % Normal 0-5 [facility] Comment on above: Performed By: #### L 500.2500, L100.0100 ####[facility] [address] [place], [address] Erythrocyte distribution width (RBC) [Ratio] 15.4 % High 11.6-14.6 [facility] Comment on above: Performed By: #### L 500.2500, L100.0100 ####[facility] [address] [place], [address] Hematocrit (Bld) [Volume fraction] 41.0 % Normal 40-54 [facility] Comment on above: Performed By: #### L 500.2500, L100.0100 ####[facility] [address] [place], [address] Hemoglobin (Bld) [Mass/Vol] 13.4 g/dL Normal 13.0-16.5 [facility] Comment on above: Performed By: #### L 500.2500, L100.0100 ####[facility] [address] [place], [address] IG% 0.600 Normal 0.0-0.9 [facility] Comment on above: Result Comment: IG% - Immature Granulocytes (promyelocytes, myelocytes andmetamyelocytes) > 1% indicates that a LEFT SHIFT is Present. Performed By: #### L 500.2500, L100.0100 ####[facility] [address] [place], [address] Lymphocytes/100 WBC (Bld) 13.5 % Low 19-41 [facility] Comment on above: Performed By: #### L 500.2500, L100.0100 ####[facility] [address] [place], [address] MCH (RBC) [Entitic mass] 29.3 pg Normal 27.0-32.0 [facility] Comment on above: Performed By: #### L 500.2500, L100.0100 ####[facility] [address] [place], [address] MCHC (RBC) [Mass/Vol] 32.7 g/dL Normal 32-36 [facility] Comment on above: Performed By: #### L 500.2500, L100.0100 ####[facility] [address] [place], [address] MCV (RBC) [Entitic vol] 89.7 fL Normal 80-94 [facility] Comment on above: Performed By: #### L 500.2500, L100.0100 ####[facility] [address] [place], [address] Monocytes/100 WBC (Bld) 5.8 % Normal 0-10 [facility] Comment on above: Performed By: #### L 500.2500, L100.0100 ####[facility] [address] [place], [address] Neutrophils/100 WBC (Bld) 78.3 % High 47-70 [facility] Comment on above: Performed By: #### L 500.2500, L100.0100 ####[facility] [address] [place], [address] Nucleated RBC (Bld) [#/Vol] 0 10*3/uL Normal 0-5 [facility] Comment on above: Performed By: #### L 500.2500, L100.0100 ####[facility] [address] [place], [address] Platelet mean volume (Bld) [Entitic vol] 9.2 fL Normal 6.2-12.0 [facility] Comment on above: Performed By: #### L 500.2500, L100.0100 ####[facility] [address] [place], [address] Platelets (Bld) [#/Vol] 424 10*3/uL Normal 150-450 [facility] Comment on above: Performed By: #### L 500.2500, L100.0100 ####[facility] [address] [place], [address] RBC (Bld) [#/Vol] 4.57 10*6/uL Low 4.6-6.2 [facility] Comment on above: Performed By: #### L 500.2500, L100.0100 ####[facility] [address] [place], [address] RDW SD 49.1 fl High 35.1-43.9 [facility] Comment on above: Performed By: #### L 500.2500, L100.0100 ####[facility] [address] [place], [place], [address] WBC (Bld) [#/Vol] 12.3 10*3/uL High 4.4-11.0 [facility] Comment on above: Performed By: #### L 500.2500, L100.0100 ####[facility] [address] [place], [place], [id number] Vancomycin, Random Levelon 0 - VANCO, RANDOM 16.5 ug/mL High 0.0-15.0 [facility] Comment on above: Result Comment: VANC OMYCIN STANDARD DRUG THERAPY: CRITICAL VALUE IS > 15.0 mg/LVANCOMYCIN HIGH INTENSITY THERAPY: CRITICAL VALUE IS > 20.0 mg/LPLEASE CONTACT PHARMACY SERVICES (#4073) FOR INTERPRETATIONOF RESULTS. THIS RESULT DOES NOT REPRESENT A PEAK OR TROUGHLEVEL FOR THIS DRUG. Performed By: #### L 501.8850 ####[facility] [address] [place], [address] Vancomycin, Trough Levelon 0 - VANCO, TROUGH 23.4 ug/mL High 5.0-15.0 [facility] Comment on above: Order Comment: Comme nts: DRAW 30 MIN PRIOR TO [id number] Result Comment: Milton mmended goal trough ranges are generally 10-15 mcg/mlfor less severe/complicated infections such as cellulitisor UTI and 15-20 mcg/ml for more severe/complicatedinfections such as bacteremia/sepsis, osteomyelitis,pneumonia or meningitis. Goal trough ranges should takeinto account indication, patient-specific factors andorganism PORFIRIO.VANCOMYCIN STANDARED DRUG THERAPY TROUGH LEVEL: 5.0 - 15.0 mg/LVANCOMYCIN HIGH INTENSITY THERAPY TROUGH LEVEL: 15.0 - 20.0 mg/LHigh Intensity therapy recommended for serious lifethreatening infections include:- Paxugt[place]ut-Ryetylqixleb-Ecflfvkbh (Ventilator/Healt[employer] Associated)-SepsisPLEASE CONTACT PHARMACY SERVICES (#2227) FOR INTERPRETATIONOF RESULTS. Performed By: #### L 501.8820 ####[facility] [address] [place], [address] Basic Metabolic Profile (BMP )on 12-02-2024 BUN/CRE 29.0 RATIO High 10-20 [facility] Comment on above: Performed By: #### L 500.2500, L100.0100 ####[facility] [address] [place], [address] Calcium [Mass/Vol] 8.9 mg/dL Normal 7.6-11.0 [facility] Comment on above: Performed By: #### L 500.2500, L100.0100 ####[facility] [address] [place], [address] Chloride [Moles/Vol] 97 mmol/L Low 98-108 [facility] Comment on above: Performed By: #### L 500.2500, L100.0100 ####[facility] [address] [place], [address] CO2 [Moles/Vol] 25.5 mmol/L Normal 21.0-32.0 [facility] Comment on above: Performed By: #### L 500.2500, L100.0100 ####[facility] [address] [place], [address] Creatinine [Mass/Vol] 1.20 mg/dL Normal 0.70-1.20 [facility] Comment on above: Performed By: #### L 500.2500, L100.0100 ####[facility] [address] [place], [address] ECRCL 66.24 ml/min Normal 50-250 [facility] Comment on above: Performed By: #### L 500.2500, L100.0100 ####[facility] [address] [place], [address] GAP 12 Normal 5-15 [facility] Comment on above: Performed By: #### L 500.2500, L100.0100 ####[facility] [address] [place], [address] GFR/1.73 sq M.predicted among non-blacks MDRD (S/P/Bld) [Vol rate/Area] 68 mL/min/{1.73_m2} Normal >60 [facility] Comment on above: Result Comment: mL/m in/1.73m2 CKD-EPI Creatinine Equation (2020) Performed By: #### L 500.2500, L100.0100 ####[facility] [address] [place], [address] Glucose [Mass/Vol] 116 mg/dL High 70-99 [facility] Comment on above: Performed By: #### L 500.2500, L100.0100 ####[facility] [address] [place], [address] Potassium [Moles/Vol] 4.5 mmol/L Normal 3.3-5.1 [facility] Comment on above: Result Comment: Hemo lysis present, Results??could be affected.?? Performed By: #### L 500.2500, L100.0100 ####[facility] [address] [place], [address] Sodium [Moles/Vol] 134 mmol/L Normal 133-145 [facility] Comment on above: Performed By: #### L 500.2500, L100.0100 ####[facility] [address] [place], [address] Urea nitrogen [Mass/Vol] 35 mg/dL High 4-19 [facility] Comment on above: Performed By: #### L 500.2500, L100.0100 ####[facility] [address] [place], [address] Bedside Glucoseon 12-02-2024 FINGERSTICK GLU 187 mg/dL High 74-106 [facility] Comment on above: Result Comment: SNEHA DUNCAN OF PATIENT CARE PER NURSING PROTOCOL Performed By: #### L 501.080 ####[facility] [address] [place], [address] FINGERSTICK GLU 148 mg/dL High 74-106 [facility] Comment on above: Result Comment: SNEHA GEMENT OF PATIENT CARE PER NURSING PROTOCOL Performed By: #### L 501.080 ####[facility] [address] [place], [address] FINGERSTICK GLU 184 mg/dL High 74-106 [facility] Comment on above: Result Comment: SNEHA GEMENT OF PATIENT CARE PER NURSING PROTOCOL Performed By: #### L 501.080 ####[facility] [address] [place], [address] FINGERSTICK GLU 91 mg/dL Normal 74-106 [facility] Comment on above: Result Comment: SNEHA GEMENT OF PATIENT CARE PER NURSING PROTOCOL Performed By: #### L 501.080 ####[facility] [address] [place], [address] FINGERSTICK GLU 169 mg/dL High 74-106 [facility] Comment on above: Result Comment: SNEHA GEMENT OF PATIENT CARE PER NURSING PROTOCOL Performed By: #### L 501.080 ####[facility] [address] [place], [address] CBC W/Diff, Automatedon 08-2 Absolute Lymph 1.87 X10 3/uL Normal 0.83-4.51 [facility] Comment on above: Performed By: #### L 500.2500, L100.0100 ####[facility] [address] [place], [address] Absolute Neut 11.8 X10 3/uL High 2.0-7.7 [facility] Comment on above: Performed By: #### L 500.2500, L100.0100 ####[facility] [address] [place], [address] Basophils/100 WBC (Bld) 0.2 % Normal 0-1 [facility] Comment on above: Performed By: #### L 500.2500, L100.0100 ####[facility] [address] [place], [address] Eosinophils/100 WBC (Bld) 1.8 % Normal 0-5 [facility] Comment on above: Performed By: #### L 500.2500, L100.0100 ####[facility] [address] [place], [address] Erythrocyte distribution width (RBC) [Ratio] 15.5 % High 11.6-14.6 [facility] Comment on above: Performed By: #### L 500.2500, L100.0100 ####[facility] [address] [place], [address] Hematocrit (Bld) [Volume fraction] 42.2 % Normal 40-54 [facility] Comment on above: Performed By: #### L 500.2500, L100.0100 ####[facility] [address] [place], [address] Hemoglobin (Bld) [Mass/Vol] 13.6 g/dL Normal 13.0-16.5 [facility] Comment on above: Performed By: #### L 500.2500, L100.0100 ####[facility] [address] [place], [address] IG% 0.600 Normal 0.0-0.9 [facility] Comment on above: Result Comment: IG% - Immature Granulocytes (promyelocytes, myelocytes andmetamyelocytes) > 1% indicates that a LEFT SHIFT is Present. Performed By: #### L 500.2500, L100.0100 ####[facility] [address] [place], [address] Lymphocytes/100 WBC (Bld) 12.6 % Low 19-41 [facility] Comment on above: Performed By: #### L 500.2500, L100.0100 ####[facility] [address] [place], [address] MCH (RBC) [Entitic mass] 29.2 pg Normal 27.0-32.0 [facility] Comment on above: Performed By: #### L 500.2500, L100.0100 ####[facility] [address] [place], [address] MCHC (RBC) [Mass/Vol] 32.2 g/dL Normal 32-36 [facility] Comment on above: Performed By: #### L 500.2500, L100.0100 ####[facility] [address] [place], [address] MCV (RBC) [Entitic vol] 90.6 fL Normal 80-94 [facility] Comment on above: Performed By: #### L 500.2500, L100.0100 ####[facility] [address] [place], [address] Monocytes/100 WBC (Bld) 5.3 % Normal 0-10 [facility] Comment on above: Performed By: #### L 500.2500, L100.0100 ####[facility] [address] [place], [address] Neutrophils/100 WBC (Bld) 79.5 % High 47-70 [facility] Comment on above: Performed By: #### L 500.2500, L100.0100 ####[facility] [address] [place], [address] Nucleated RBC (Bld) [#/Vol] 0 10*3/uL Normal 0-5 [facility] Comment on above: Performed By: #### L 500.2500, L100.0100 ####[facility] [address] [place], [address] Platelet mean volume (Bld) [Entitic vol] 9.4 fL Normal 6.2-12.0 [facility] Comment on above: Performed By: #### L 500.2500, L100.0100 ####[facility] [address] [place], [address] Platelets (Bld) [#/Vol] 481 10*3/uL High 150-450 [facility] Comment on above: Performed By: #### L 500.2500, L100.0100 ####[facility] [address] [place], [address] RBC (Bld) [#/Vol] 4.66 10*6/uL Normal 4.6-6.2 [facility] Comment on above: Performed By: #### L 500.2500, L100.0100 ####[facility] [address] [place], [address] RDW SD 50.1 fl High 35.1-43.9 [facility] Comment on above: Performed By: #### L 500.2500, L100.0100 ####[facility] [address] [place], [address] WBC (Bld) [#/Vol] 14.8 10*3/uL High 4.4-11.0 [facility] Comment on above: Performed By: #### L 500.2500, L100.0100 ####[facility] [address] [place], [address] Gram Stainon 12-02-2024 GS List Antibiotics [place] t 48 Hours? vanco Left top of foot Gram Stain 3+ Gram negative rods 2+ Gram positive cocci Rare Epithelial cells No White Blood Cells Normal [facility] Comment on above: Performed By: #### M 100.2000, M100.3000 ####[facility] [address] [place], [address] Basic Metabolic Profile (BMP )on 12-01-2024 BUN/CRE 31.5 RATIO High 10-20 [facility] Comment on above: Performed By: #### L 500.2500, L100.0100 ####[facility] [address] [place], [address] Calcium [Mass/Vol] 8.8 mg/dL Normal 7.6-11.0 [facility] Comment on above: Performed By: #### L 500.2500, L100.0100 ####[facility] [address] [place], [address] Chloride [Moles/Vol] 99 mmol/L Normal 98-108 [facility] Comment on above: Performed By: #### L 500.2500, L100.0100 ####[facility] [address] [place], [address] CO2 [Moles/Vol] 21.2 mmol/L Normal 21.0-32.0 [facility] Comment on above: Performed By: #### L 500.2500, L100.0100 ####[facility] [address] [place], [address] Creatinine [Mass/Vol] 1.21 mg/dL High 0.70-1.20 [facility] Comment on above: Performed By: #### L 500.2500, L100.0100 ####[facility] [address] [place], [address] ECRCL 65.69 ml/min Normal 50-250 [facility] Comment on above: Performed By: #### L 500.2500, L100.0100 ####[facility] [address] [place], [address] GAP 13 Normal 5-15 [facility] Comment on above: Performed By: #### L 500.2500, L100.0100 ####[facility] [address] [place], [address] GFR/1.73 sq M.predicted among non-blacks MDRD (S/P/Bld) [Vol rate/Area] 67 mL/min/{1.73_m2} Normal >60 [facility] Comment on above: Result Comment: mL/m in/1.73m2 CKD-EPI Creatinine Equation (2020) Performed By: #### L 500.2500, L100.0100 ####[facility] [address] [place], [address] Glucose [Mass/Vol] 125 mg/dL High 70-99 [facility] Comment on above: Performed By: #### L 500.2500, L100.0100 ####[facility] [address] [place], [address] Potassium [Moles/Vol] 4.5 mmol/L Normal 3.3-5.1 [facility] Comment on above: Performed By: #### L 500.2500, L100.0100 ####[facility] [address] [place], [address] Sodium [Moles/Vol] 133 mmol/L Normal 133-145 [facility] Comment on above: Performed By: #### L 500.2500, L100.0100 ####[facility] [address] [place], [address] Urea nitrogen [Mass/Vol] 38 mg/dL High 4-19 [facility] Comment on above: Performed By: #### L 500.2500, L100.0100 ####[facility] [address] [place], [address] Bedside Glucoseon 12-01-2024 FINGERSTICK GLU 160 mg/dL High 74-106 [facility] Comment on above: Result Comment: SNEHA DUNCAN OF PATIENT CARE PER NURSING PROTOCOL Performed By: #### L 501.080 ####[facility] [address] [place], [address] FINGERSTICK GLU 147 mg/dL High 74-106 [facility] Comment on above: Result Comment: SNEHA GEMENT OF PATIENT CARE PER NURSING PROTOCOL Performed By: #### L 501.080 ####[facility] [address] [place], [address] FINGERSTICK GLU 106 mg/dL Normal 74-106 [facility] Comment on above: Result Comment: SNEHA GEMENT OF PATIENT CARE PER NURSING PROTOCOL Performed By: #### L 501.080 ####[facility] [address] [place], [address] CBC W/Diff, Automatedon 11-05 Absolute Lymph 1.76 X10 3/uL Normal 0.83-4.51 [facility] Comment on above: Performed By: #### L 500.2500, L100.0100 ####[facility] [address] [place], [address] Absolute Neut 9.5 X10 3/uL High 2.0-7.7 [facility] Comment on above: Performed By: #### L 500.2500, L100.0100 ####[facility] [address] [place], [address] Basophils/100 WBC (Bld) 0.2 % Normal 0-1 [facility] Comment on above: Performed By: #### L 500.2500, L100.0100 ####[facility] [address] [place], [address] Eosinophils/100 WBC (Bld) 1.1 % Normal 0-5 [facility] Comment on above: Performed By: #### L 500.2500, L100.0100 ####[facility] [address] [place], [address] Erythrocyte distribution width (RBC) [Ratio] 15.1 % High 11.6-14.6 [facility] Comment on above: Performed By: #### L 500.2500, L100.0100 ####[facility] [address] [place], [address] Hematocrit (Bld) [Volume fraction] 39.4 % Low 40-54 [facility] Comment on above: Performed By: #### L 500.2500, L100.0100 ####[facility] [address] [place], [address] Hemoglobin (Bld) [Mass/Vol] 12.8 g/dL Low 13.0-16.5 [facility] Comment on above: Performed By: #### L 500.2500, L100.0100 ####[facility] [address] [place], [address] IG% 0.700 Normal 0.0-0.9 [facility] Comment on above: Result Comment: IG% - Immature Granulocytes (promyelocytes, myelocytes andmetamyelocytes) > 1% indicates that a LEFT SHIFT is Present. Performed By: #### L 500.2500, L100.0100 ####[facility] [address] [place], [address] Lymphocytes/100 WBC (Bld) 14.3 % Low 19-41 [facility] Comment on above: Performed By: #### L 500.2500, L100.0100 ####[facility] [address] [place], [address] MCH (RBC) [Entitic mass] 28.7 pg Normal 27.0-32.0 [facility] Comment on above: Performed By: #### L 500.2500, L100.0100 ####[facility] [address] [place], [address] MCHC (RBC) [Mass/Vol] 32.5 g/dL Normal 32-36 [facility] Comment on above: Performed By: #### L 500.2500, L100.0100 ####[facility] [address] [place], [address] MCV (RBC) [Entitic vol] 88.3 fL Normal 80-94 [facility] Comment on above: Performed By: #### L 500.2500, L100.0100 ####[facility] [address] [place], [address] Monocytes/100 WBC (Bld) 6.7 % Normal 0-10 [facility] Comment on above: Performed By: #### L 500.2500, L100.0100 ####[facility] [address] [place], [address] Neutrophils/100 WBC (Bld) 77.0 % High 47-70 [facility] Comment on above: Performed By: #### L 500.2500, L100.0100 ####[facility] [address] [place], [address] Nucleated RBC (Bld) [#/Vol] 0 10*3/uL Normal 0-5 [facility] Comment on above: Performed By: #### L 500.2500, L100.0100 ####[facility] [address] [place], [address] Platelet mean volume (Bld) [Entitic vol] 9.5 fL Normal 6.2-12.0 [facility] Comment on above: Performed By: #### L 500.2500, L100.0100 ####[facility] [address] [place], [address] Platelets (Bld) [#/Vol] 441 10*3/uL Normal 150-450 [facility] Comment on above: Performed By: #### L 500.2500, L100.0100 ####[facility] [address] [place], [address] RBC (Bld) [#/Vol] 4.46 10*6/uL Low 4.6-6.2 [facility] Comment on above: Performed By: #### L 500.2500, L100.0100 ####[facility] [address] [place], [address] RDW SD 48.0 fl High 35.1-43.9 [facility] Comment on above: Performed By: #### L 500.2500, L100.0100 ####[facility] [address] [place], [address] WBC (Bld) [#/Vol] 12.3 10*3/uL High 4.4-11.0 [facility] Comment on above: Performed By: #### L 500.2500, L100.0100 ####[facility] [address] [place], [address] Ankle Brachial Indexon 11-30 Ankle Brachial Index Normal [facility] Basic Metabolic Profile (BMP )on 11-30-2024 BUN/CRE 27.4 RATIO High 10-20 [facility] Comment on above: Performed By: #### L 500.2500, L100.0100 ####[facility] [address] [place], [address] Calcium [Mass/Vol] 9.2 mg/dL Normal 7.6-11.0 [facility] Comment on above: Performed By: #### L 500.2500, L100.0100 ####[facility] [address] [place], [address] Chloride [Moles/Vol] 99 mmol/L Normal 98-108 [facility] Comment on above: Performed By: #### L 500.2500, L100.0100 ####[facility] [address] [place], [address] CO2 [Moles/Vol] 22.3 mmol/L Normal 21.0-32.0 [facility] Comment on above: Performed By: #### L 500.2500, L100.0100 ####[facility] [address] [place] [facility] [place], [address] Creatinine [Mass/Vol] 1.33 mg/dL High 0.70-1.20 [facility] Comment on above: Performed By: #### L 500.2500, L100.0100 ####[facility] [address] [place], [address] ECRCL 59.76 ml/min Normal 50-250 [facility] Comment on above: Performed By: #### L 500.2500, L100.0100 ####[facility] [address] [place], [address] GAP 12 Normal 5-15 [facility] Comment on above: Performed By: #### L 500.2500, L100.0100 ####[facility] [address] [place], [address] GFR/1.73 sq M.predicted among non-blacks MDRD (S/P/Bld) [Vol rate/Area] 60 mL/min/{1.73_m2} Normal >60 [facility] Comment on above: Result Comment: mL/m in/1.73m2 CKD-EPI Creatinine Equation (2020) Performed By: #### L 500.2500, L100.0100 ####[facility] [address] [place], [address] Glucose [Mass/Vol] 119 mg/dL High 70-99 [facility] Comment on above: Performed By: #### L 500.2500, L100.0100 ####[facility] [address] [place], [address] Potassium [Moles/Vol] 5.0 mmol/L Normal 3.3-5.1 [facility] Comment on above: Performed By: #### L 500.2500, L100.0100 ####[facility] [address] [place], [address] Sodium [Moles/Vol] 133 mmol/L Normal 133-145 [facility] Comment on above: Performed By: #### L 500.2500, L100.0100 ####[facility] [address] [place], [address] Urea nitrogen [Mass/Vol] 36 mg/dL High 4-19 [facility] Comment on above: Performed By: #### L 500.2500, L100.0100 ####[facility] [address] [place], [address] Bedside Glucoseon 11-30-2024 FINGERSTICK GLU 171 mg/dL High 74-106 [facility] Comment on above: Result Comment: SNEHA GEMENT OF PATIENT CARE PER NURSING PROTOCOL Performed By: #### L 501.080 ####[facility] [address] [place], [address] FINGERSTICK GLU 131 mg/dL High 74-106 [facility] Comment on above: Result Comment: SNEHA GEMENT OF PATIENT CARE PER NURSING PROTOCOL Performed By: #### L 501.080 ####[facility] [address] [place], [address] FINGERSTICK GLU 175 mg/dL High 74-106 [facility] Comment on above: Result Comment: SNEHA GEMENT OF PATIENT CARE PER NURSING PROTOCOL Performed By: #### L 501.080 ####[facility] [address] [place], [address] FINGERSTICK GLU 123 mg/dL High 74-106 [facility] Comment on above: Result Comment: SNEHA GEMENT OF PATIENT CARE PER NURSING PROTOCOL Performed By: #### L 501.080 ####[facility] [address] [place], [address] CBC W/Diff, Automatedon 08-2 Absolute Lymph 1.65 X10 3/uL Normal 0.83-4.51 [facility] Comment on above: Performed By: #### L 500.2500, L100.0100 ####[facility] [address] [place], [address] Absolute Neut 9.0 X10 3/uL High 2.0-7.7 [facility] Comment on above: Performed By: #### L 500.2500, L100.0100 ####[facility] [address] [place], [address] Basophils/100 WBC (Bld) 0.2 % Normal 0-1 [facility] Comment on above: Performed By: #### L 500.2500, L100.0100 ####[facility] [address] [place], [address] Eosinophils/100 WBC (Bld) 1.0 % Normal 0-5 [facility] Comment on above: Performed By: #### L 500.2500, L100.0100 ####[facility] [address] [place], [address] Erythrocyte distribution width (RBC) [Ratio] 15.1 % High 11.6-14.6 [facility] Comment on above: Performed By: #### L 500.2500, L100.0100 ####[facility] [address] [place], [address] Hematocrit (Bld) [Volume fraction] 40.5 % Normal 40-54 [facility] Comment on above: Performed By: #### L 500.2500, L100.0100 ####[facility] [address] [place], [address] Hemoglobin (Bld) [Mass/Vol] 13.4 g/dL Normal 13.0-16.5 [facility] Comment on above: Performed By: #### L 500.2500, L100.0100 ####[facility] [address] [place], [address] IG% 0.800 Normal 0.0-0.9 [facility] Comment on above: Result Comment: IG% - Immature Granulocytes (promyelocytes, myelocytes andmetamyelocytes) > 1% indicates that a LEFT SHIFT is Present. Performed By: #### L 500.2500, L100.0100 ####[facility] [address] [place], [address] Lymphocytes/100 WBC (Bld) 14.0 % Low 19-41 [facility] Comment on above: Performed By: #### L 500.2500, L100.0100 ####[facility] [address] [place], [address] MCH (RBC) [Entitic mass] 29.6 pg Normal 27.0-32.0 [facility] Comment on above: Performed By: #### L 500.2500, L100.0100 ####[facility] [address] [place], [address] MCHC (RBC) [Mass/Vol] 33.1 g/dL Normal 32-36 [facility] Comment on above: Performed By: #### L 500.2500, L100.0100 ####[facility] [address] [place], [address] MCV (RBC) [Entitic vol] 89.6 fL Normal 80-94 [facility] Comment on above: Performed By: #### L 500.2500, L100.0100 ####[facility] [address] [place], [address] Monocytes/100 WBC (Bld) 8.1 % Normal 0-10 [facility] Comment on above: Performed By: #### L 500.2500, L100.0100 ####[facility] [address] [place], [address] Neutrophils/100 WBC (Bld) 75.9 % High 47-70 [facility] Comment on above: Performed By: #### L 500.2500, L100.0100 ####[facility] [address] [place], [address] Nucleated RBC (Bld) [#/Vol] 0 10*3/uL Normal 0-5 [facility] Comment on above: Performed By: #### L 500.2500, L100.0100 ####[facility] [address] [place], [address] Platelet mean volume (Bld) [Entitic vol] 9.3 fL Normal 6.2-12.0 [facility] Comment on above: Performed By: #### L 500.2500, L100.0100 ####[facility] [address] [place], [address] Platelets (Bld) [#/Vol] 442 10*3/uL Normal 150-450 [facility] Comment on above: Performed By: #### L 500.2500, L100.0100 ####[facility] [address] [place], [address] RBC (Bld) [#/Vol] 4.52 10*6/uL Low 4.6-6.2 [facility] Comment on above: Performed By: #### L 500.2500, L100.0100 ####[facility] [address] [place], [address] RDW SD 48.7 fl High 35.1-43.9 [facility] Comment on above: Performed By: #### L 500.2500, L100.0100 ####[facility] [address] [place], [address] WBC (Bld) [#/Vol] 11.8 10*3/uL High 4.4-11.0 [facility] Comment on above: Performed By: #### L 500.2500, L100.0100 ####[facility] [address] [place], [address] Basic Metabolic Profile (BMP )on 11-29-2024 BUN/CRE 29.4 RATIO High 10-20 [facility] Comment on above: Performed By: #### L 100.0100, L500.2500 ####[facility] [address] [place], [address] Calcium [Mass/Vol] 9.0 mg/dL Normal 7.6-11.0 [facility] Comment on above: Performed By: #### L 100.0100, L500.2500 ####[facility] [address] [place], [address] Chloride [Moles/Vol] 104 mmol/L Normal 98-108 [facility] Comment on above: Performed By: #### L 100.0100, L500.2500 ####[facility] [address] [place], [address] CO2 [Moles/Vol] 17.3 mmol/L Low 21.0-32.0 [facility] Comment on above: Performed By: #### L 100.0100, L500.2500 ####[facility] [address] [place], [address] Creatinine [Mass/Vol] 1.14 mg/dL Normal 0.70-1.20 [facility] Comment on above: Performed By: #### L 100.0100, L500.2500 ####[facility] [address] [place], [address] ECRCL 76.31 ml/min Normal 50-250 [facility] Comment on above: Performed By: #### L 100.0100, L500.2500 ####[facility] [address] [place], [address] GAP 13 Normal 5-15 [facility] Comment on above: Performed By: #### L 100.0100, L500.2500 ####[facility] [address] [place], [address] GFR/1.73 sq M.predicted among non-blacks MDRD (S/P/Bld) [Vol rate/Area] 72 mL/min/{1.73_m2} Normal >60 [facility] Comment on above: Result Comment: mL/m in/1.73m2 CKD-EPI Creatinine Equation (2020) Performed By: #### L 100.0100, L500.2500 ####[facility] [address] [place], [address] Glucose [Mass/Vol] 59 mg/dL Low 70-99 [facility] Comment on above: Performed By: #### L 100.0100, L500.2500 ####[facility] [address] [place], [address] Potassium [Moles/Vol] 4.9 mmol/L Normal 3.3-5.1 [facility] Comment on above: Performed By: #### L 100.0100, L500.2500 ####[facility] [address] [place], [address] Sodium [Moles/Vol] 134 mmol/L Normal 133-145 [facility] Comment on above: Performed By: #### L 100.0100, L500.2500 ####[facility] [address] [place], [address] Urea nitrogen [Mass/Vol] 34 mg/dL High 4-19 [facility] Comment on above: Performed By: #### L 100.0100, L500.2500 ####[facility] [address] [place], [address] Bedside Glucoseon 11-29-2024 FINGERSTICK GLU 168 mg/dL High 74-106 [facility] Comment on above: Result Comment: SNEHA DUNCAN OF PATIENT CARE PER NURSING PROTOCOL Performed By: #### L 501.080 ####[facility] [address] [place], [address] FINGERSTICK GLU 142 mg/dL High 74-106 [facility] Comment on above: Result Comment: SNEHA GEMENT OF PATIENT CARE PER NURSING PROTOCOL Performed By: #### L 501.080 ####[facility] [address] [place], [address] FINGERSTICK GLU 75 mg/dL Normal 74-106 [facility] Comment on above: Result Comment: SNEHA GEMENT OF PATIENT CARE PER NURSING PROTOCOL Performed By: #### L 501.080 ####[facility] [address] [place], [address] FINGERSTICK GLU 79 mg/dL Normal 74-106 [facility] Comment on above: Result Comment: SNEHA GEMENT OF PATIENT CARE PER NURSING PROTOCOL Performed By: #### L 501.080 ####[facility] [address] [place], [address] CBC W/Diff, Automatedon - Absolute Lymph 1.59 X10 3/uL Normal 0.83-4.51 [facility] Comment on above: Performed By: #### L 100.0100, L500.2500 ####[facility] [address] [place], [address] Absolute Neut 7.0 X10 3/uL Normal 2.0-7.7 [facility] Comment on above: Performed By: #### L 100.0100, L500.2500 ####[facility] [address] [place], [address] Basophils/100 WBC (Bld) 0.4 % Normal 0-1 [facility] Comment on above: Performed By: #### L 100.0100, L500.2500 ####[facility] [address] [place], [address] Eosinophils/100 WBC (Bld) 1.1 % Normal 0-5 [facility] Comment on above: Performed By: #### L 100.0100, L500.2500 ####[facility] [address] [place], [address] Erythrocyte distribution width (RBC) [Ratio] 14.9 % High 11.6-14.6 [facility] Comment on above: Performed By: #### L 100.0100, L500.2500 ####[facility] [address] [place], [address] Hematocrit (Bld) [Volume fraction] 39.1 % Low 40-54 [facility] Comment on above: Performed By: #### L 100.0100, L500.2500 ####[facility] [address] [place], [address] Hemoglobin (Bld) [Mass/Vol] 12.8 g/dL Low 13.0-16.5 [facility] Comment on above: Performed By: #### L 100.0100, L500.2500 ####[facility] [address] [place], [address] IG% 1.100 High 0.0-0.9 [facility] Comment on above: Result Comment: IG% - Immature Granulocytes (promyelocytes, myelocytes andmetamyelocytes) > 1% indicates that a LEFT SHIFT is Present. Performed By: #### L 100.0100, L500.2500 ####[facility] [address] [place], [address] Lymphocytes/100 WBC (Bld) 16.0 % Low 19-41 [facility] Comment on above: Performed By: #### L 100.0100, L500.2500 ####[facility] [address] [place], [address] MCH (RBC) [Entitic mass] 29.4 pg Normal 27.0-32.0 [facility] Comment on above: Performed By: #### L 100.0100, L500.2500 ####[facility] [address] [place], [address] MCHC (RBC) [Mass/Vol] 32.7 g/dL Normal 32-36 [facility] Comment on above: Performed By: #### L 100.0100, L500.2500 ####[facility] [address] [place], [address] MCV (RBC) [Entitic vol] 89.9 fL Normal 80-94 [facility] Comment on above: Performed By: #### L 100.0100, L500.2500 ####[facility] [address] [place], [address] Monocytes/100 WBC (Bld) 11.0 % High 0-10 [facility] Comment on above: Performed By: #### L 100.0100, L500.2500 ####[facility] [address] [place], [address] Neutrophils/100 WBC (Bld) 70.4 % High 47-70 [facility] Comment on above: Performed By: #### L 100.0100, L500.2500 ####[facility] [address] [place], [address] Nucleated RBC (Bld) [#/Vol] 0 10*3/uL Normal 0-5 [facility] Comment on above: Performed By: #### L 100.0100, L500.2500 ####[facility] [address] [place], [address] Platelet mean volume (Bld) [Entitic vol] 9.5 fL Normal 6.2-12.0 [facility] Comment on above: Performed By: #### L 100.0100, L500.2500 ####[facility] [address] [place], [address] Platelets (Bld) [#/Vol] 390 10*3/uL Normal 150-450 [facility] Comment on above: Performed By: #### L 100.0100, L500.2500 ####[facility] [address] [place], [address] RBC (Bld) [#/Vol] 4.35 10*6/uL Low 4.6-6.2 [facility] Comment on above: Performed By: #### L 100.0100, L500.2500 ####[facility] [address] [place], [address] RDW SD 49.1 fl High 35.1-43.9 [facility] Comment on above: Performed By: #### L 100.0100, L500.2500 ####[facility] [address] [place], [address] WBC (Bld) [#/Vol] 9.9 10*3/uL Normal 4.4-11.0 [facility] Comment on above: Performed By: #### L 100.0100, L500.2500 ####[facility] [address] [place], [address] Extremity Lower WITH Contras ton 11-29-2024 Extremity Lower WITH Contrast Normal [facility] 12 Lead EKGon 11-28-2024 12 Lead EKG Normal [facility] Amylase Body Fluidon 025 AMYLASE,BDY FLD 25 U/L Normal . [facility] Comment on above: Order Comment: Test( s) [id number], Body Fluidwas developed and its performance characteristicsdetermined by [facility]. It has not been cleared or approvedby the Food and Drug Administration. Result Comment: ____ : BODY FLUID TYPE : AMYLASE : : : : : Lymph : 50 - 83 : : : : : Peritoneal : : : Fluid : 88 - 109 : : : : : Saliva : : : (Mixed Glands) : 22332 - 377759 : : : : Twila Middleton V. Reference Intervals for Adults and Children 2008. Ninth Edition (V9.1) [email or web address], [facility]; [place]: October 2008.Performed at: - [facility] [id number] Director: Gely Peng MD, Phone: [phone] at: [facility] [id number] Director: Higinio Ramon PhD, Phone: [phone] Performed By: #### L 4250.0400, W3181.9050 ####[facility] [address] [place], [place], [id number] Basic Metabolic Profile (BMP )on 11-28-2024 BUN/CRE 31.0 RATIO High 10-20 [facility] Comment on above: Performed By: #### L 500.2500, L100.0100 ####[facility] [address] [place], [place], [address] Calcium [Mass/Vol] 9.1 mg/dL Normal 7.6-11.0 [facility] Comment on above: Performed By: #### L 500.2500, L100.0100 ####[facility] [address] [place], [place], [id number] Chloride [Moles/Vol] 102 mmol/L Normal 98-108 [facility] [place] Comment on above: Performed By: #### L 500.2500, L100.0100 ####[facility] [address] [place], [address] CO2 [Moles/Vol] 19.2 mmol/L Low 21.0-32.0 [facility] Comment on above: Performed By: #### L 500.2500, L100.0100 ####[facility] [address] [place], [address] Creatinine [Mass/Vol] 1.07 mg/dL Normal 0.70-1.20 [facility] Comment on above: Performed By: #### L 500.2500, L100.0100 ####[facility] [address] [place], [address] ECRCL 81.27 ml/min Normal 50-250 [facility] Comment on above: Performed By: #### L 500.2500, L100.0100 ####[facility] [address] [place], [address] GAP 13 Normal 5-15 [facility] Comment on above: Performed By: #### L 500.2500, L100.0100 ####[facility] [address] [place], [address] GFR/1.73 sq M.predicted among non-blacks MDRD (S/P/Bld) [Vol rate/Area] 77 mL/min/{1.73_m2} Normal >60 [facility] Comment on above: Result Comment: mL/m in/1.73m2 CKD-EPI Creatinine Equation (2020) Performed By: #### L 500.2500, L100.0100 ####[facility] [address] [place], [address] Glucose [Mass/Vol] 119 mg/dL High 70-99 [facility] Comment on above: Performed By: #### L 500.2500, L100.0100 ####[facility] [address] [place], [address] Potassium [Moles/Vol] 4.6 mmol/L Normal 3.3-5.1 [facility] Comment on above: Performed By: #### L 500.2500, L100.0100 ####[facility] [address] [place], [address] Sodium [Moles/Vol] 135 mmol/L Normal 133-145 [facility] Comment on above: Performed By: #### L 500.2500, L100.0100 ####[facility] [address] [place], [address] Urea nitrogen [Mass/Vol] 33 mg/dL High 4-19 [facility] Comment on above: Performed By: #### L 500.2500, L100.0100 ####[facility] [address] [place], [address] Bedside Glucoseon 11-28-2024 FINGERSTICK GLU 80 mg/dL Normal 74-106 [facility] Comment on above: Result Comment: SNEHA GEMENT OF PATIENT CARE PER NURSING PROTOCOL Performed By: #### L 501.080 ####[facility] [address] [place], [address] FINGERSTICK GLU 111 mg/dL High 74-106 [facility] Comment on above: Result Comment: SNEHA GEMENT OF PATIENT CARE PER NURSING PROTOCOL Performed By: #### L 501.080 ####[facility] [address] [place], [address] FINGERSTICK GLU 131 mg/dL High 74-106 [facility] Comment on above: Result Comment: Dr Manjit solis FollowedMANAGEMENT OF PATIENT CARE PER NURSING PROTOCOL Performed By: #### L 501.080 ####[facility] [address] [place], [address] FINGERSTICK GLU 117 mg/dL High 74-106 [facility] Comment on above: Result Comment: SNEHA DUNCAN OF PATIENT CARE PER NURSING PROTOCOL Performed By: #### L 501.080 ####[facility] [address] [place], [address] CBC W/Diff, Automatedon 11-05 Absolute Lymph 1.47 X10 3/uL Normal 0.83-4.51 [facility] Comment on above: Performed By: #### L 500.2500, L100.0100 ####[facility] [address] [place], [address] Absolute Neut 5.7 X10 3/uL Normal 2.0-7.7 [facility] Comment on above: Performed By: #### L 500.2500, L100.0100 ####[facility] [address] [place], [address] Basophils/100 WBC (Bld) 0.3 % Normal 0-1 [facility] Comment on above: Performed By: #### L 500.2500, L100.0100 ####[facility] [address] [place], [address] Eosinophils/100 WBC (Bld) 3.0 % Normal 0-5 [facility] Comment on above: Performed By: #### L 500.2500, L100.0100 ####[facility] [address] [place], [address] Erythrocyte distribution width (RBC) [Ratio] 14.8 % High 11.6-14.6 [facility] Comment on above: Performed By: #### L 500.2500, L100.0100 ####[facility] [address] [place], [address] Hematocrit (Bld) [Volume fraction] 40.6 % Normal 40-54 [facility] Comment on above: Performed By: #### L 500.2500, L100.0100 ####[facility] [address] [place], [address] Hemoglobin (Bld) [Mass/Vol] 13.3 g/dL Normal 13.0-16.5 [facility] Comment on above: Performed By: #### L 500.2500, L100.0100 ####[facility] [address] [place], [address] IG% 1.500 High 0.0-0.9 [facility] Comment on above: Result Comment: IG% - Immature Granulocytes (promyelocytes, myelocytes andmetamyelocytes) > 1% indicates that a LEFT SHIFT is Present. Performed By: #### L 500.2500, L100.0100 ####[facility] [address] [place], [address] Lymphocytes/100 WBC (Bld) 17.1 % Low 19-41 [facility] Comment on above: Performed By: #### L 500.2500, L100.0100 ####[facility] [address] [place], [address] MCH (RBC) [Entitic mass] 29.4 pg Normal 27.0-32.0 [facility] Comment on above: Performed By: #### L 500.2500, L100.0100 ####[facility] [address] [place], [address] MCHC (RBC) [Mass/Vol] 32.8 g/dL Normal 32-36 [facility] Comment on above: Performed By: #### L 500.2500, L100.0100 ####[facility] [address] [place], [address] MCV (RBC) [Entitic vol] 89.6 fL Normal 80-94 [facility] Comment on above: Performed By: #### L 500.2500, L100.0100 ####[facility] [address] [place], [address] Monocytes/100 WBC (Bld) 11.9 % High 0-10 [facility] Comment on above: Performed By: #### L 500.2500, L100.0100 ####[facility] [address] [place], [address] Neutrophils/100 WBC (Bld) 66.2 % Normal 47-70 [facility] Comment on above: Performed By: #### L 500.2500, L100.0100 ####[facility] [address] [place], [address] Nucleated RBC (Bld) [#/Vol] 0 10*3/uL Normal 0-5 [facility] Comment on above: Performed By: #### L 500.2500, L100.0100 ####[facility] [address] [place], [address] Platelet mean volume (Bld) [Entitic vol] 9.7 fL Normal 6.2-12.0 [facility] Comment on above: Performed By: #### L 500.2500, L100.0100 ####[facility] [address] [place], [address] Platelets (Bld) [#/Vol] 331 10*3/uL Normal 150-450 [facility] Comment on above: Performed By: #### L 500.2500, L100.0100 ####[facility] [address] [place], [address] RBC (Bld) [#/Vol] 4.53 10*6/uL Low 4.6-6.2 [facility] Comment on above: Performed By: #### L 500.2500, L100.0100 ####[facility] [address] [place], [address] RDW SD 48.9 fl High 35.1-43.9 [facility] Comment on above: Performed By: #### L 500.2500, L100.0100 ####[facility] [address] [place], [address] WBC (Bld) [#/Vol] 8.6 10*3/uL Normal 4.4-11.0 [facility] Comment on above: Performed By: #### L 500.2500, L100.0100 ####[facility] [address] [place], [address] STROKE Brain/Head without Co nton 11-28-2024 STROKE Brain/Head without Cont Normal [facility] STROKE CTA Head AND Neck W/C onon 11-28-2024 STROKE CTA Head AND Neck W/Con Normal [facility] pH, Body Fluid [id number] 11-28 PH, BODY FLUID 7.5 Normal Not Estab. [facility] Comment on above: Order Comment: Test( s) [id number], Body Fluidwas developed and its performance characteristicsdetermined by [employer]. It has not been cleared or approvedby the Food and Drug Administration. Result Comment: The reference interval(s) and other method performance specificationshave not been established for this body fluid. The test result must beintegrated into the clinical context for interpretation. Performed By: #### L 3800.0400, L3800.0050 ####[facility] [address] [place], [address] Basic Metabolic Profile (BMP )on 11-27-2024 BUN/CRE 36.2 RATIO High 10-20 [facility] Comment on above: Performed By: #### L 500.2500 ####[facility] [address] [place], [address] Calcium [Mass/Vol] 8.6 mg/dL Normal 7.6-11.0 [facility] Comment on above: Performed By: #### L 500.2500 ####[facility] [address] [place], [address] Chloride [Moles/Vol] 101 mmol/L Normal 98-108 [facility] [place] Comment on above: Performed By: #### L 500.2500 ####[facility] [address] [place], [address] CO2 [Moles/Vol] 15.3 mmol/L Low 21.0-32.0 [facility] Comment on above: Performed By: #### L 500.2500 ####[facility] [address] [place], [address] Creatinine [Mass/Vol] 1.03 mg/dL Normal 0.70-1.20 [facility] Comment on above: Performed By: #### L 500.2500 ####[facility] [address] [place], [address] ECRCL 84.42 ml/min Normal 50-250 [facility] Comment on above: Performed By: #### L 500.2500 ####[facility] [address] [place], [address] GAP 13 Normal 5-15 [facility] Comment on above: Performed By: #### L 500.2500 ####[facility] [address] [place], [address] GFR/1.73 sq M.predicted among non-blacks MDRD (S/P/Bld) [Vol rate/Area] 81 mL/min/{1.73_m2} Normal >60 [facility] Comment on above: Result Comment: mL/m in/1.73m2 CKD-EPI Creatinine Equation (2020) Performed By: #### L 500.2500 ####[facility] [address] [place], [address] Glucose [Mass/Vol] 176 mg/dL High 70-99 [facility] Comment on above: Performed By: #### L 500.2500 ####[facility] [address] [place], [address] Potassium [Moles/Vol] 4.5 mmol/L Normal 3.3-5.1 [facility] Comment on above: Performed By: #### L 500.2500 ####[facility] [address] [place], [address] Sodium [Moles/Vol] 130 mmol/L Low 133-145 [facility] Comment on above: Performed By: #### L 500.2500 ####[facility] [address] [place], [address] Urea nitrogen [Mass/Vol] 37 mg/dL High 4-19 [facility] Comment on above: Performed By: #### L 500.2500 ####[facility] [address] [facility] [address] BUN Normal 4-19 [facility] Comment on above: Result Comment: This specimen has been REJECTED due to Laboratory criteria:Hemolyzed.TDEVEREAU has been notified of need of recollection.11/27/245 Manuel [place] Performed By: #### L 500.2500, L100.0100 ####[facility] [address] [facility] [address] BUN/CRE Normal 10-20 [facility] Comment on above: Result Comment: This specimen has been REJECTED due to Laboratory criteria:Hemolyzed.TDEVEREAU has been notified of need of recollection.11/27/245 Manuel [place] Performed By: #### L 500.2500, L100.0100 ####[facility] [address] [place], [address] Calcium Normal 7.6-11.0 [facility] Comment on above: Result Comment: This specimen has been REJECTED due to Laboratory criteria:Hemolyzed.TDEVEREAU has been notified of need of recollection.11/27/245 [place] Performed By: #### L 500.2500, L100.0100 ####[facility] [address] [place], [address] CL Normal 98-108 [facility] Comment on above: Result Comment: This specimen has been REJECTED due to Laboratory criteria:Hemolyzed.TDEVEREAU has been notified of need of recollection.11/27/24354 Manuel [place] Performed By: #### L 500.2500, L100.0100 ####[facility] [address] [place], [address] CO2 Normal 21.0-32.0 [facility] Comment on above: Result Comment: This specimen has been REJECTED due to Laboratory criteria:Hemolyzed.TDEVEREAU has been notified of need of recollection.11/27/24354 [place] Performed By: #### L 500.2500, L100.0100 ####[facility] [address] [place], [address] CREAT,SERUM Normal 0.70-1.20 [facility] Comment on above: Result Comment: This specimen has been REJECTED due to Laboratory criteria:Hemolyzed.TDEVEREAU has been notified of need of recollection.11/27/24354 [place] Performed By: #### L 500.2500, L100.0100 ####[facility] [address] [place], [address] eGFR Normal >60 [facility] Comment on above: Result Comment: This specimen has been REJECTED due to Laboratory criteria:Hemolyzed.TDEVEREAU has been notified of need of recollection.11/27/24354 [place] Performed By: #### L 500.2500, L100.0100 ####[facility] [address] [place], [address] GAP Normal 5-15 [facility] Comment on above: Result Comment: This specimen has been REJECTED due to Laboratory criteria:Hemolyzed.TDEVEREAU has been notified of need of recollection.11/27/24354 [place] Performed By: #### L 500.2500, L100.0100 ####[facility] [address] [place], [address] GLU Normal 70-99 [facility] Comment on above: Result Comment: This specimen has been REJECTED due to Laboratory criteria:Hemolyzed.TDEVEREAU has been notified of need of recollection.11/27/24 0355 [place] Performed By: #### L 500.2500, L100.0100 ####[facility] [address] [place], [address] Potassium Normal 3.3-5.1 [facility] Comment on above: Result Comment: This specimen has been REJECTED due to Laboratory criteria:Hemolyzed.TDEVEREAU has been notified of need of recollection.11/27/245 [place] Performed By: #### L 500.2500, L100.0100 ####[facility] [address] [place], [address] Basic Metabolic Profile (BMP) Normal 133-145 [facility] Comment on above: Result Comment: This specimen has been REJECTED due to Laboratory criteria:Hemolyzed.TDEVEREAU has been notified of need of recollection.11/27/24 0355 [place] Performed By: #### L 500.2500, L100.0100 ####[facility] [address] [place], [address] Bedside Glucoseon 11-27-2024 FINGERSTICK GLU 151 mg/dL High 74-106 [facility] Comment on above: Result Comment: SNEHA GEMENT OF PATIENT CARE PER NURSING PROTOCOL Performed By: #### L 501.080 ####[facility] [address] [place], [address] FINGERSTICK GLU 198 mg/dL High 74-106 [facility] Comment on above: Result Comment: SNEHA GEMENT OF PATIENT CARE PER NURSING PROTOCOL Performed By: #### L 501.080 ####[facility] [address] [place], [address] FINGERSTICK GLU 149 mg/dL High 74-106 [facility] Comment on above: Result Comment: SNEHA GEMENT OF PATIENT CARE PER NURSING PROTOCOL Performed By: #### L 501.080 ####[facility] [address] [place], [address] FINGERSTICK GLU 175 mg/dL High 74-106 [facility] Comment on above: Result Comment: SNEHA GEMENT OF PATIENT CARE PER NURSING PROTOCOL Performed By: #### L 501.080 ####[facility] [address] [place], [address] CBC W/Diff, Automatedon 08- Absolute Lymph 1.10 X10 3/uL Normal 0.83-4.51 [facility] Comment on above: Performed By: #### L 500.2500, L100.0100 ####[facility] [address] [place], [address] Absolute Neut 8.0 X10 3/uL High 2.0-7.7 [facility] Comment on above: Performed By: #### L 500.2500, L100.0100 ####[facility] [address] [place], [address] Basophils/100 WBC (Bld) 0.2 % Normal 0-1 [facility] Comment on above: Performed By: #### L 500.2500, L100.0100 ####[facility] [address] [place], [address] Eosinophils/100 WBC (Bld) 2.4 % Normal 0-5 [facility] Comment on above: Performed By: #### L 500.2500, L100.0100 ####[facility] [address] [place], [address] Erythrocyte distribution width (RBC) [Ratio] 14.7 % High 11.6-14.6 [facility] Comment on above: Performed By: #### L 500.2500, L100.0100 ####[facility] [address] [place], [address] Hematocrit (Bld) [Volume fraction] 38.7 % Low 40-54 [facility] Comment on above: Performed By: #### L 500.2500, L100.0100 ####[facility] [address] [place], [address] Hemoglobin (Bld) [Mass/Vol] 12.9 g/dL Low 13.0-16.5 [facility] Comment on above: Performed By: #### L 500.2500, L100.0100 ####[facility] [address] [place], [address] IG% 1.000 High 0.0-0.9 [facility] Comment on above: Result Comment: IG% - Immature Granulocytes (promyelocytes, myelocytes andmetamyelocytes) > 1% indicates that a LEFT SHIFT is Present. Performed By: #### L 500.2500, L100.0100 ####[facility] [address] [place], [address] Lymphocytes/100 WBC (Bld) 10.5 % Low 19-41 [facility] Comment on above: Performed By: #### L 500.2500, L100.0100 ####[facility] [address] [place], [address] MCH (RBC) [Entitic mass] 29.9 pg Normal 27.0-32.0 [facility] Comment on above: Performed By: #### L 500.2500, L100.0100 ####[facility] [address] [place], [address] MCHC (RBC) [Mass/Vol] 33.3 g/dL Normal 32-36 [facility] Comment on above: Performed By: #### L 500.2500, L100.0100 ####[facility] [address] [place], [address] MCV (RBC) [Entitic vol] 89.8 fL Normal 80-94 [facility] Comment on above: Performed By: #### L 500.2500, L100.0100 ####[facility] [address] [place], [address] Monocytes/100 WBC (Bld) 10.2 % High 0-10 [facility] Comment on above: Performed By: #### L 500.2500, L100.0100 ####[facility] [address] [place], [address] Neutrophils/100 WBC (Bld) 75.7 % High 47-70 [facility] Comment on above: Performed By: #### L 500.2500, L100.0100 ####[facility] [address] [place], [address] Nucleated RBC (Bld) [#/Vol] 0 10*3/uL Normal 0-5 [facility] Comment on above: Performed By: #### L 500.2500, L100.0100 ####[facility] [address] [place], [address] Platelet mean volume (Bld) [Entitic vol] 9.8 fL Normal 6.2-12.0 [facility] Comment on above: Performed By: #### L 500.2500, L100.0100 ####[facility] [address] [place], [address] Platelets (Bld) [#/Vol] 278 10*3/uL Normal 150-450 [facility] Comment on above: Performed By: #### L 500.2500, L100.0100 ####[facility] [address] [place], [address] RBC (Bld) [#/Vol] 4.31 10*6/uL Low 4.6-6.2 [facility] Comment on above: Performed By: #### L 500.2500, L100.0100 ####[facility] [address] [place], [address] RDW SD 47.9 fl High 35.1-43.9 [facility] Comment on above: Performed By: #### L 500.2500, L100.0100 ####[facility] [address] [place], [address] WBC (Bld) [#/Vol] 10.5 10*3/uL Normal 4.4-11.0 [facility] Comment on above: Performed By: #### L 500.2500, L100.0100 ####[facility] [address] [place], [address] Culture, Blood (WB)on 2024 CUB Blood cultures x2, f rom two different sites No growth in 5 days. Normal [facility] Comment on above: Performed By: #### M 200.1000 ####[facility] [address] [place], [address] CUB Blood cultures x2, f rom two different sites No growth in 5 days. Normal [facility] Comment on above: Performed By: #### L 100.0100, L500.4050, L300.3900, M200.1000, L503.6005, L300.4310 ####[facility] [address] [place], [address] Vancomycin, Trough Levelon 0 11-27-2024 VANCO, TROUGH 17.8 ug/mL High 5.0-15.0 [facility] Comment on above: Order Comment: 2300 Result Comment: [place] mmended goal trough ranges are generally 10-15 mcg/mlfor less severe/complicated infections such as cellulitisor UTI and 15-20 mcg/ml for more severe/complicatedinfections such as bacteremia/sepsis, osteomyelitis,pneumonia or meningitis. Goal trough ranges should takeinto account indication, patient-specific factors andorganism PORFIRIO.VANCOMYCIN STANDARED DRUG THERAPY TROUGH LEVEL: 5.0 - 15.0 mg/LVANCOMYCIN HIGH INTENSITY THERAPY TROUGH LEVEL: 15.0 - 20.0 mg/LHigh Intensity therapy recommended for serious lifethreatening infections include:- Vnzuxguuhf-Zkqkyuabfcek-Sdfydbwvf (Ventilator/Healtcare Associated)-SepsisPLEASE CONTACT PHARMACY SERVICES (#7389) FOR INTERPRETATIONOF RESULTS. Performed By: #### L 501.8820 ####[facility] [address] [place], [address] Basic Metabolic Profile (BMP )on 11-26-2024 BUN/CRE 37.1 RATIO High 10-20 [facility] Comment on above: Performed By: #### L 500.2500, L100.0100 ####[facility] [address] [place], [address] Calcium [Mass/Vol] 8.8 mg/dL Normal 7.6-11.0 [facility] Comment on above: Performed By: #### L 500.2500, L100.0100 ####[facility] [address] [place], [address] Chloride [Moles/Vol] 99 mmol/L Normal 98-108 [facility] Comment on above: Performed By: #### L 500.2500, L100.0100 ####[facility] [address] [place], [address] CO2 [Moles/Vol] 18.3 mmol/L Low 21.0-32.0 [facility] Comment on above: Performed By: #### L 500.2500, L100.0100 ####[facility] [address] [place], [address] Creatinine [Mass/Vol] 1.24 mg/dL High 0.70-1.20 [facility] Comment on above: Performed By: #### L 500.2500, L100.0100 ####[facility] [address] [place], [address] ECRCL 70.13 ml/min Normal 50-250 [facility] Comment on above: Performed By: #### L 500.2500, L100.0100 ####[facility] [address] [place], [address] GAP 16 High 5-15 [facility] Comment on above: Performed By: #### L 500.2500, L100.0100 ####[facility] [address] [place], [address] GFR/1.73 sq M.predicted among non-blacks MDRD (S/P/Bld) [Vol rate/Area] 65 mL/min/{1.73_m2} Normal >60 [facility] Comment on above: Result Comment: mL/m in/1.73m2 CKD-EPI Creatinine Equation (2020) Performed By: #### L 500.2500, L100.0100 ####[facility] [address] [place], [address] Glucose [Mass/Vol] 147 mg/dL High 70-99 [facility] Comment on above: Performed By: #### L 500.2500, L100.0100 ####[facility] [address] [place], [address] Potassium [Moles/Vol] 4.2 mmol/L Normal 3.3-5.1 [facility] Comment on above: Performed By: #### L 500.2500, L100.0100 ####[facility] [address] [place], [address] Sodium [Moles/Vol] 134 mmol/L Normal 133-145 [facility] Comment on above: Performed By: #### L 500.2500, L100.0100 ####[facility] [address] [place], [address] Urea nitrogen [Mass/Vol] 46 mg/dL High 4-19 [facility] Comment on above: Performed By: #### L 500.2500, L100.0100 ####[facility] [address] [place], [address] Bedside Glucoseon 11-26-2024 FINGERSTICK GLU 186 mg/dL High 74-106 [facility] Comment on above: Result Comment: SNEHA GEMENT OF PATIENT CARE PER NURSING PROTOCOL Performed By: #### L 501.080 ####[facility] [address] [place], [address] FINGERSTICK GLU 192 mg/dL High 74-106 [facility] Comment on above: Result Comment: SNEHA GEMENT OF PATIENT CARE PER NURSING PROTOCOL Performed By: #### L 501.080 ####[facility] [address] [place], [address] FINGERSTICK GLU 146 mg/dL High 74-106 [facility] Comment on above: Result Comment: SNEHA GEMENT OF PATIENT CARE PER NURSING PROTOCOL Performed By: #### L 501.080 ####[facility] [address] [place], [address] FINGERSTICK GLU 233 mg/dL High 74-106 [facility] Comment on above: Result Comment: SNEHA GEMENT OF PATIENT CARE PER NURSING PROTOCOL Performed By: #### L 501.080 ####[facility] [address] [place], [address] Body Fluid Culton 11-26-2024 BFC Culture exhibits no growth. Normal [facility] Comment on above: Performed By: #### M 100.4001, M100.2000, L350.1000, L200.0200, L503.0100, M100.2900, L504.0250, L503.0300 ####[facility] [address] [place], [address] CBC W/Diff, Automatedon 11-05 Absolute Lymph 1.13 X10 3/uL Normal 0.83-4.51 [facility] Comment on above: Performed By: #### L 500.2500, L100.0100 ####[facility] [address] [place], [address] Absolute Neut 7.5 X10 3/uL Normal 2.0-7.7 [facility] Comment on above: Performed By: #### L 500.2500, L100.0100 ####[facility] [address] [place], [address] Basophils/100 WBC (Bld) 0.2 % Normal 0-1 [facility] Comment on above: Performed By: #### L 500.2500, L100.0100 ####[facility] [address] [place], [address] Eosinophils/100 WBC (Bld) 1.2 % Normal 0-5 [facility] Comment on above: Performed By: #### L 500.2500, L100.0100 ####[facility] [address] [place], [address] Erythrocyte distribution width (RBC) [Ratio] 14.6 % Normal 11.6-14.6 [facility] Comment on above: Performed By: #### L 500.2500, L100.0100 ####[facility] [address] [place], [address] Hematocrit (Bld) [Volume fraction] 42.5 % Normal 40-54 [facility] Comment on above: Performed By: #### L 500.2500, L100.0100 ####[facility] [address] [place], [address] Hemoglobin (Bld) [Mass/Vol] 13.9 g/dL Normal 13.0-16.5 [facility] Comment on above: Performed By: #### L 500.2500, L100.0100 ####[facility] [address] [place], [address] IG% 0.500 Normal 0.0-0.9 [facility] Comment on above: Result Comment: IG% - Immature Granulocytes (promyelocytes, myelocytes andmetamyelocytes) > 1% indicates that a LEFT SHIFT is Present. Performed By: #### L 500.2500, L100.0100 ####[facility] [address] [place], [address] Lymphocytes/100 WBC (Bld) 11.7 % Low 19-41 [facility] Comment on above: Performed By: #### L 500.2500, L100.0100 ####[facility] [address] [place], [address] MCH (RBC) [Entitic mass] 29.6 pg Normal 27.0-32.0 [facility] Comment on above: Performed By: #### L 500.2500, L100.0100 ####[facility] [address] [place], [address] MCHC (RBC) [Mass/Vol] 32.7 g/dL Normal 32-36 [facility] Comment on above: Performed By: #### L 500.2500, L100.0100 ####[facility] [address] [place], [address] MCV (RBC) [Entitic vol] 90.4 fL Normal 80-94 [facility] Comment on above: Performed By: #### L 500.2500, L100.0100 ####[facility] [address] [place], [address] Monocytes/100 WBC (Bld) 9.0 % Normal 0-10 [facility] Comment on above: Performed By: #### L 500.2500, L100.0100 ####[facility] [address] [place], [address] Neutrophils/100 WBC (Bld) 77.4 % High 47-70 [facility] Comment on above: Performed By: #### L 500.2500, L100.0100 ####[facility] [address] [place], [address] Nucleated RBC (Bld) [#/Vol] 0 10*3/uL Normal 0-5 [facility] Comment on above: Performed By: #### L 500.2500, L100.0100 ####[facility] [address] [place], [address] Platelet mean volume (Bld) [Entitic vol] 9.6 fL Normal 6.2-12.0 [facility] Comment on above: Performed By: #### L 500.2500, L100.0100 ####[facility] [address] [place], [address] Platelets (Bld) [#/Vol] 296 10*3/uL Normal 150-450 [facility] Comment on above: Performed By: #### L 500.2500, L100.0100 ####[facility] [address] [place], [address] RBC (Bld) [#/Vol] 4.70 10*6/uL Normal 4.6-6.2 [facility] Comment on above: Performed By: #### L 500.2500, L100.0100 ####[facility] [address] [place], [address] RDW SD 48.3 fl High 35.1-43.9 [facility] Comment on above: Performed By: #### L 500.2500, L100.0100 ####[facility] [address] [place], [address] WBC (Bld) [#/Vol] 9.7 10*3/uL Normal 4.4-11.0 [facility] Comment on above: Performed By: #### L 500.2500, L100.0100 ####[facility] [address] [place], [address] Culture, Anaerobic Any Sourc sandra 11-26-2024 CUAN No anaerobic bacteri a isolated. Normal [facility] Comment on above: Performed By: #### M 100.4001, M100.2000, L350.1000, L200.0200, L503.0100, M100.2900, L504.0250, L503.0300 ####[facility] [address] [place], [address] Vancomycin, Random Levelon 0 11-26-2024 VANCO, RANDOM 17.5 ug/mL High 0.0-15.0 [facility] Comment on above: Result Comment: VANC OMYCIN STANDARD DRUG THERAPY: CRITICAL VALUE IS > 15.0 mg/LVANCOMYCIN HIGH INTENSITY THERAPY: CRITICAL VALUE IS > 20.0 mg/LPLEASE CONTACT PHARMACY SERVICES (#9590) FOR INTERPRETATIONOF RESULTS. THIS RESULT DOES NOT REPRESENT A PEAK OR TROUGHLEVEL FOR THIS DRUG. Performed By: #### L 501.8850 ####[facility] [address] [place], [address] Vancomycin, Trough Levelon 0 11-26-2024 VANCO, TROUGH 23.1 ug/mL High 5.0-15.0 [facility] Comment on above: Order Comment: Comme nts: Trough to be drawn 30 mins prior to scheduled dose Result Comment: [place] mmended goal trough ranges are generally 10-15 mcg/mlfor less severe/complicated infections such as cellulitisor UTI and 15-20 mcg/ml for more severe/complicatedinfections such as bacteremia/sepsis, osteomyelitis,pneumonia or meningitis. Goal trough ranges should takeinto account indication, patient-specific factors andorganism PORFIRIO.VANCOMYCIN STANDARED DRUG THERAPY TROUGH LEVEL: 5.0 - 15.0 mg/LVANCOMYCIN HIGH INTENSITY THERAPY TROUGH LEVEL: 15.0 - 20.0 mg/LHigh Intensity therapy recommended for serious lifethreatening infections include:- Xvocfqsmja-Cjoznnuebllw-Ntilofsbh (Ventilator/Healtcare Associated)-SepsisPLEASE CONTACT PHARMACY SERVICES (#1227) FOR INTERPRETATIONOF RESULTS. Performed By: #### L 501.8820 ####[facility] [address] [place], [address] Wound Cultureon 11-26-2024 WC Normal [facility] Comment on above: Performed By: #### M 100.2000, M100.3000 ####[facility] [address] [place], [address] Basic Metabolic Profile (BMP )on 11-25-2024 BUN/CRE 40.9 RATIO High 10-20 [facility] Comment on above: Performed By: #### L 500.2500, L100.0100 ####[facility] [address] [place], [address] Calcium [Mass/Vol] 8.7 mg/dL Normal 7.6-11.0 [facility] Comment on above: Performed By: #### L 500.2500, L100.0100 ####[facility] [address] [place], [address] Chloride [Moles/Vol] 98 mmol/L Normal 98-108 [facility] Comment on above: Performed By: #### L 500.2500, L100.0100 ####[facility] [address] [place], [address] CO2 [Moles/Vol] 17.8 mmol/L Low 21.0-32.0 [facility] Comment on above: Performed By: #### L 500.2500, L100.0100 ####[facility] [address] [place], [address] Creatinine [Mass/Vol] 1.14 mg/dL Normal 0.70-1.20 [facility] Comment on above: Performed By: #### L 500.2500, L100.0100 ####[facility] [address] [place], [address] ECRCL 77.02 ml/min Normal 50-250 [facility] Comment on above: Performed By: #### L 500.2500, L100.0100 ####[facility] [address] [place], [address] GAP 16 High 5-15 [facility] Comment on above: Performed By: #### L 500.2500, L100.0100 ####[facility] [address] [place], [address] GFR/1.73 sq M.predicted among non-blacks MDRD (S/P/Bld) [Vol rate/Area] 72 mL/min/{1.73_m2} Normal >60 [facility] Comment on above: Result Comment: mL/m in/1.73m2 CKD-EPI Creatinine Equation (2020) Performed By: #### L 500.2500, L100.0100 ####[facility] [address] [place], [address] Glucose [Mass/Vol] 193 mg/dL High 70-99 [facility] Comment on above: Performed By: #### L 500.2500, L100.0100 ####[facility] [address] [place], [address] Potassium [Moles/Vol] 4.0 mmol/L Normal 3.3-5.1 [facility] Comment on above: Performed By: #### L 500.2500, L100.0100 ####[facility] [address] [place], [address] Sodium [Moles/Vol] 131 mmol/L Low 133-145 [facility] Comment on above: Performed By: #### L 500.2500, L100.0100 ####[facility] [address] [place], [address] Urea nitrogen [Mass/Vol] 47 mg/dL High 4-19 [facility] Comment on above: Performed By: #### L 500.2500, L100.0100 ####[facility] [address] [place], [address] Bedside Glucoseon 11-25-2024 FINGERSTICK GLU 174 mg/dL [facility]106 [facility] Comment on above: Result Comment: SNEHA GEMENT OF PATIENT CARE PER NURSING PROTOCOL Performed By: #### L 501.080 ####[facility] [address] [place], [address] FINGERSTICK GLU 202 mg/dL [facility]106 [facility] Comment on above: Result Comment: SNEHA GEMENT OF PATIENT CARE PER NURSING PROTOCOL Performed By: #### L 501.080 ####[facility] [address] [place], [address] FINGERSTICK GLU 183 mg/dL [facility]106 [facility] Comment on above: Result Comment: SNEHA GEMENT OF PATIENT CARE PER NURSING PROTOCOL Performed By: #### L 501.080 ####[facility] [address] [place], [address] FINGERSTICK GLU 189 mg/dL [facility]106 [facility] Comment on above: Result Comment: SNEHA GEMENT OF PATIENT CARE PER NURSING PROTOCOL Performed By: #### L 501.080 ####[facility] [address] [place], [address] FINGERSTICK GLU 182 mg/dL High [address] [place] [address] Comment on above: Result Comment: SNEHA GEMENT OF PATIENT CARE PER NURSING PROTOCOL Performed By: #### L 501.080 ####[facility] [address] [place], [address] CBC W/Diff, Automatedon 11-05 Absolute Lymph 1.51 X10 3/uL Normal 0.83-4.51 [facility] Comment on above: Performed By: #### L 500.2500, L100.0100 ####[facility] [address] [place], [address] Absolute Neut 13.8 X10 3/uL High 2.0-7.7 [facility] Comment on above: Performed By: #### L 500.2500, L100.0100 ####[facility] [address] [place], [address] Basophils/100 WBC (Bld) 0.3 % Normal 0-1 [facility] Comment on above: Performed By: #### L 500.2500, L100.0100 ####[facility] [address] [place], [address] Eosinophils/100 WBC (Bld) 0.8 % Normal 0-5 [facility] Comment on above: Performed By: #### L 500.2500, L100.0100 ####[facility] [address] [place], [address] Erythrocyte distribution width (RBC) [Ratio] 14.6 % Normal 11.6-14.6 [facility] Comment on above: Performed By: #### L 500.2500, L100.0100 ####[facility] [address] [place], [address] Hematocrit (Bld) [Volume fraction] 39.8 % Low 40-54 [facility] Comment on above: Performed By: #### L 500.2500, L100.0100 ####[facility] [address] [place], [address] Hemoglobin (Bld) [Mass/Vol] 13.4 g/dL Normal 13.0-16.5 [facility] Comment on above: Performed By: #### L 500.2500, L100.0100 ####[facility] [address] [place], [address] IG% 0.500 Normal 0.0-0.9 [facility] Comment on above: Result Comment: IG% - Immature Granulocytes (promyelocytes, myelocytes andmetamyelocytes) > 1% indicates that a LEFT SHIFT is Present. Performed By: #### L 500.2500, L100.0100 ####[facility] [address] [place], [address] Lymphocytes/100 WBC (Bld) 9.2 % Low 19-41 [facility] Comment on above: Performed By: #### L 500.2500, L100.0100 ####[facility] [address] [place], [address] MCH (RBC) [Entitic mass] 29.9 pg Normal 27.0-32.0 [facility] Comment on above: Performed By: #### L 500.2500, L100.0100 ####[facility] [address] [place], [address] MCHC (RBC) [Mass/Vol] 33.7 g/dL Normal 32-36 [facility] Comment on above: Performed By: #### L 500.2500, L100.0100 ####[facility] [address] [place], [address] MCV (RBC) [Entitic vol] 88.8 fL Normal 80-94 [facility] Comment on above: Performed By: #### L 500.2500, L100.0100 ####[facility] [address] [place], [address] Monocytes/100 WBC (Bld) 5.4 % Normal 0-10 [facility] Comment on above: Performed By: #### L 500.2500, L100.0100 ####[facility] [address] [place], [address] Neutrophils/100 WBC (Bld) 83.8 % High 47-70 [facility] Comment on above: Performed By: #### L 500.2500, L100.0100 ####[facility] [address] [place], [address] Nucleated RBC (Bld) [#/Vol] 0 10*3/uL Normal 0-5 [facility] Comment on above: Performed By: #### L 500.2500, L100.0100 ####[facility] [address] [place], [address] Platelet mean volume (Bld) [Entitic vol] 9.6 fL Normal 6.2-12.0 [facility] Comment on above: Performed By: #### L 500.2500, L100.0100 ####[facility] [address] [place], [address] Platelets (Bld) [#/Vol] 403 10*3/uL Normal 150-450 [facility] Comment on above: Performed By: #### L 500.2500, L100.0100 ####[facility] [address] [place], [address] RBC (Bld) [#/Vol] 4.48 10*6/uL Low 4.6-6.2 [facility] Comment on above: Performed By: #### L 500.2500, L100.0100 ####[facility] [address] [place], [address] RDW SD 46.3 fl High 35.1-43.9 [facility] Comment on above: Performed By: #### L 500.2500, L100.0100 ####[facility] [address] [place], [address] WBC (Bld) [#/Vol] 16.4 10*3/uL High 4.4-11.0 [facility] Comment on above: Performed By: #### L 500.2500, L100.0100 ####[facility] [address] [place], [address] Gram Stainon 11-25-2024 GS Centrifuged Specimen ? Culture performed on centrifuged specimen Gram Stain No organisms seen 1+ White Blood Cells Normal [facility] Comment on above: Performed By: #### M 100.4001, M100.2000, L350.1000, L200.0200, L503.0100, M100.2900, L504.0250, L503.0300 ####[facility] [address] [place], [address] Basic Metabolic Profile (BMP )on 11-24-2024 BUN/CRE 30.2 RATIO High 10-20 [facility] Comment on above: Performed By: #### L 100.0100, L500.2500 ####[facility] [address] [place], [address] Calcium [Mass/Vol] 8.7 mg/dL Normal 7.6-11.0 [facility] Comment on above: Performed By: #### L 100.0100, L500.2500 ####[facility] [address] [place], [address] Chloride [Moles/Vol] 100 mmol/L Normal 98-108 [facility] Comment on above: Performed By: #### L 100.0100, L500.2500 ####[facility] [address] [place], [address] CO2 [Moles/Vol] 20.0 mmol/L Low 21.0-32.0 [facility] Comment on above: Performed By: #### L 100.0100, L500.2500 ####[facility] [address] [place], [address] Creatinine [Mass/Vol] 1.25 mg/dL High 0.70-1.20 [facility] Comment on above: Performed By: #### L 100.0100, L500.2500 ####[facility] [address] [place], [address] ECRCL 70.24 ml/min Normal 50-250 [facility] Comment on above: Performed By: #### L 100.0100, L500.2500 ####[facility] [address] [place], [address] GAP 14 Normal 5-15 [facility] Comment on above: Performed By: #### L 100.0100, L500.2500 ####[facility] [address] [place], [address] GFR/1.73 sq M.predicted among non-blacks MDRD (S/P/Bld) [Vol rate/Area] 64 mL/min/{1.73_m2} Normal >60 [facility] Comment on above: Result Comment: mL/m in/1.73m2 CKD-EPI Creatinine Equation (2020) Performed By: #### L 100.0100, L500.2500 ####[facility] [address] [place], [address] Glucose [Mass/Vol] 138 mg/dL High 70-99 [facility] Comment on above: Performed By: #### L 100.0100, L500.2500 ####[facility] [address] [place], [address] Potassium [Moles/Vol] 4.1 mmol/L Normal 3.3-5.1 [facility] Comment on above: Performed By: #### L 100.0100, L500.2500 ####[facility] [address] [place], [address] Sodium [Moles/Vol] 134 mmol/L Normal 133-145 [facility] Comment on above: Performed By: #### L 100.0100, L500.2500 ####[facility] [address] [place], [address] Urea nitrogen [Mass/Vol] 38 mg/dL High 4-19 [facility] Comment on above: Performed By: #### L 100.0100, L500.2500 ####[facility] [address] [place], [address] Bedside Glucoseon 11-24-2024 FINGERSTICK GLU 238 mg/dL High 74-106 [facility] Comment on above: Result Comment: SNEHA GEMENT OF PATIENT CARE PER NURSING PROTOCOL Performed By: #### L 501.080 ####[facility] [address] [place], [address] FINGERSTICK GLU 179 mg/dL High 74-106 [facility] Comment on above: Result Comment: SNEHA GEMENT OF PATIENT CARE PER NURSING PROTOCOL Performed By: #### L 501.080 ####[facility] [address] [place], [address] FINGERSTICK GLU 182 mg/dL High -106 [facility] Comment on above: Result Comment: SNEHA GEMENT OF PATIENT CARE PER NURSING PROTOCOL Performed By: #### L 501.080 ####[facility] [address] [place], [address] FINGERSTICK GLU 118 mg/dL [facility]106 [facility] Comment on above: Result Comment: SNEHA GEMENT OF PATIENT CARE PER NURSING PROTOCOL Performed By: #### L 501.080 ####[facility] [address] [place], [address] Body Fluid Cell Count+Diffon 11-24-2024 PATH COMM/BF Reviewed Normal [facility] Comment on above: Order Comment: The r eference range and other method performancespecifications have not been established for this bodyfluid. The test must be integrated into the clinicalcontext for interpretation. Result Comment: ACUT E INFLAMMATION AND BLOOD.NO ATYPICAL OR MALIGNANT CELLS SEEN.Irene Gottlieb MD 11/24/2024 AMENDED REPORT 11/24/24 1558 PATH COMM/BF previously reported as: May follow Performed By: #### M 100.4001, M100.2000, L350.1000, L200.0200, L503.0100, M100.2900, L504.0250, L503.0300 ####[facility] [address] [place], [address] CBC W/Diff, Automatedon 08- SMEAR COMMENT SCANNED Normal [facility] Comment on above: Result Comment: LEFT SHIFT: BANDS PRESENT 2+ Performed By: #### L 100.0100, L500.2500 ####[facility] [address] [place], [address] Chest 1 View (Portable)on Chest 1 View (Portable) Normal [facility] Cytology, Body Fluid / CSFon 11-24-2024 CYTOLOGY,BF/CSF SEE PATHOLOGY REPORT Normal [facility] Comment on above: Result Comment: Spec imen submitted to Anatomical Pathology Department fortesting. Performed By: #### M 100.4001, M100.2000, L350.1000, L200.0200, L503.0100, M100.2900, L504.0250, L503.0300 ####[facility] [address] [place], [address] Glucose, Body Fluidon 2024 GLUC, BODY FLD 172 mg/dL Normal Not Establ. [facility] Comment on above: Performed By: #### M 100.4001, M100.2000, L350.1000, L200.0200, L503.0100, M100.2900, L504.0250, L503.0300 ####[facility] [address] [place], [address] LDH,Body Fluidon 11-24-2024 LDH,BF 78 Units/L Normal Not Establ. [facility] Comment on above: Performed By: #### M 100.4001, M100.2000, L350.1000, L200.0200, L503.0100, M100.2900, L504.0250, L503.0300 ####[facility] [address] [place], [address] Protein, Body Fluidon 2024 Protein [Mass/Vol] 2.3 g/dL Normal Not Establ. [facility] Comment on above: Performed By: #### M 100.4001, M100.2000, L350.1000, L200.0200, L503.0100, M100.2900, L504.0250, L503.0300 ####[facility] [address] [place], [address] Special Stain Group IIon Special Stain Group II Normal [facility] Comment on above: Performed By: #### P SSII ####[facility] [address] [place], [place], [id number] Thoracentesis W USon 025 Thoracentesis W US Normal [facility] Vancomycin, Random Levelon 0 11-24-2024 VANCO, RANDOM 16.0 ug/mL High 0.0-15.0 [facility] Comment on above: Result Comment: VANC OMYCIN STANDARD DRUG THERAPY: CRITICAL VALUE IS > 15.0 mg/LVANCOMYCIN HIGH INTENSITY THERAPY: CRITICAL VALUE IS > 20.0 mg/LPLEASE CONTACT PHARMACY SERVICES (#0650) FOR INTERPRETATIONOF RESULTS. THIS RESULT DOES NOT REPRESENT A PEAK OR TROUGHLEVEL FOR THIS DRUG. Performed By: #### L 501.8850 ####[facility] [address] [place], [place], [address] Vancomycin, Trough Levelon 0 11-24-2024 VANCO, TROUGH 20.8 ug/mL High 5.0-15.0 [facility] Comment on above: Order Comment: Comme nts: Trough to be drawn 30 mins prior to scheduled dose Result Comment: Milton mmended goal trough ranges are generally 10-15 mcg/mlfor less severe/complicated infections such as cellulitisor UTI and 15-20 mcg/ml for more severe/complicatedinfections such as bacteremia/sepsis, osteomyelitis,pneumonia or meningitis. Goal trough ranges should takeinto account indication, patient-specific factors andorganism PORFIRIO.VANCOMYCIN STANDARED DRUG THERAPY TROUGH LEVEL: 5.0 - 15.0 mg/LVANCOMYCIN HIGH INTENSITY THERAPY TROUGH LEVEL: 15.0 - 20.0 mg/LHigh Intensity therapy recommended for serious lifethreatening infections include:- Sxuuroaosx-Yxmbtzwjnteo-Agpzumxcl (Ventilator/Healtcare Associated)-SepsisPLEASE CONTACT PHARMACY SERVICES (#7535) FOR INTERPRETATIONOF RESULTS. Performed By: #### L 501.8820 ####[facility] [address] [facility] [address] Basic Metabolic Profile (BMP )on 11-23-2024 BUN/CRE 25.6 RATIO High 01-23 [facility] Comment on above: Performed By: #### L 504.2610, L501.9520, L500.4100, L001.0705, L100.0100, L500.2500 ####[facility] [address] [facility] [address] Calcium [Mass/Vol] 8.8 mg/dL Normal 7.6-11.0 [facility] Comment on above: Performed By: #### L 504.2610, L501.9520, L500.4100, L001.0705, L100.0100, L500.2500 ####[facility] [address] [facility] [address] Chloride [Moles/Vol] 102 mmol/L Normal 98-108 [facility] Comment on above: Performed By: #### L 504.2610, L501.9520, L500.4100, L001.0705, L100.0100, L500.2500 ####[facility] [address] [place], [address] CO2 [Moles/Vol] 16.8 mmol/L Low 21.0-32.0 [facility] Comment on above: Performed By: #### L 504.2610, L501.9520, L500.4100, L001.0705, L100.0100, L500.2500 ####[facility] [address] [place], [address] Creatinine [Mass/Vol] 1.40 mg/dL High 0.70-1.20 [facility] Comment on above: Performed By: #### L 504.2610, L501.9520, L500.4100, L001.0705, L100.0100, L500.2500 ####[facility] [address] [place], [address] ECRCL 62.72 ml/min Normal 50-250 [facility] Comment on above: Performed By: #### L 504.2610, L501.9520, L500.4100, L001.0705, L100.0100, L500.2500 ####[facility] [address] [place], [address] GAP 18 High 5-15 [facility] Comment on above: Performed By: #### L 504.2610, L501.9520, L500.4100, L001.0705, L100.0100, L500.2500 ####[facility] [address] [place], [address] GFR/1.73 sq M.predicted among non-blacks MDRD (S/P/Bld) [Vol rate/Area] 56 mL/min/{1.73_m2} Low >60 [facility] Comment on above: Result Comment: mL/m in/1.73m2 CKD-EPI Creatinine Equation (2020) Performed By: #### L 504.2610, L501.9520, L500.4100, L001.0705, L100.0100, L500.2500 ####[facility] [address] [place], [address] Glucose [Mass/Vol] 195 mg/dL High 70-99 [facility] Comment on above: Performed By: #### L 504.2610, L501.9520, L500.4100, L001.0705, L100.0100, L500.2500 ####[facility] [address] [place], [address] Potassium [Moles/Vol] 4.2 mmol/L Normal 3.3-5.1 [facility] Comment on above: Performed By: #### L 504.2610, L501.9520, L500.4100, L001.0705, L100.0100, L500.2500 ####[facility] [address] [place], [address] Sodium [Moles/Vol] 136 mmol/L Normal 133-145 [facility] Comment on above: Performed By: #### L 504.2610, L501.9520, L500.4100, L001.0705, L100.0100, L500.2500 ####[facility] [address] [place], [address] Urea nitrogen [Mass/Vol] 36 mg/dL High 4-19 [facility] Comment on above: Performed By: #### L 504.2610, L501.9520, L500.4100, L001.0705, L100.0100, L500.2500 ####[facility] [address] [place], [address] Bedside Glucoseon 11-23-2024 FINGERSTICK GLU 184 mg/dL High 74-106 [facility] Comment on above: Result Comment: SNEHA GEMENT OF PATIENT CARE PER NURSING PROTOCOL Performed By: #### L 501.080 ####[facility] [address] [place], [address] FINGERSTICK GLU 164 mg/dL High 74-106 [facility] Comment on above: Result Comment: SNEHA GEMENT OF PATIENT CARE PER NURSING PROTOCOL Performed By: #### L 501.080 ####[facility] [address] [place], [address] FINGERSTICK GLU 158 mg/dL High 74-106 [facility] Comment on above: Result Comment: SNEHA DUNCAN OF PATIENT CARE PER NURSING PROTOCOL Performed By: #### L 501.080 ####[facility] [address] [place], [address] CBC W/Diff, Automatedon 08-2 PLT EST ADEQUATE Normal ADEQ [facility] Comment on above: Performed By: #### L 504.2610, L501.9520, L500.4100, L001.0705, L100.0100, L500.2500 ####[facility] [address] [place], [address] POLYCHROMASIA 1+ Normal [facility] Comment on above: Performed By: #### L 504.2610, L501.9520, L500.4100, L001.0705, L100.0100, L500.2500 ####[facility] [address] 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 cefepime List Antibiotics to be Started? vanc, cefepime Gram Stain 4+ Gram negative rods No Epithelial cells Normal [facility] Comment on above: Performed By: #### M 100.2000, M100.3000 ####[facility] [address] [place], [address] LDHon 11-23-2024 LDH 303 U/L High 87-241 [facility] Comment on above: Performed By: #### L 504.2610, L501.9520, L500.4100, L001.0705, L100.0100, L500.2500 ####[facility] [address] [place], [address] Lactic Acidon 11-23-2024 Lactate [Moles/Vol] 4.4 mmol/L Invalid Interpretation Code 0.0-2.0 [facility] Comment on above: Result Comment: Crit ical Result(s) Called at:11-23-24 01:41 TO YO by:??LA DOUGHERTY Results read back by same. Performed By: #### L 503.6005 ####[facility] [address] [place], [address] Legionella Antigen Urineon 0 11-23-2024 LEGU Normal [facility] Comment on above: Performed By: #### M 300.4600, M300.4500 ####[facility] [address] [place], [address] Lipid Profileon 11-23-2024 CHOL:HDL 1.41 Normal [facility] Comment on above: Performed By: #### L 504.2610, L501.9520, L500.4100, L001.0705, L100.0100, L500.2500 ####[facility] [address] [place], [address] Cholesterol [Mass/Vol] 60 mg/dL Normal <=200 [facility] Comment on above: Result Comment: Chol esterol level, Desirable <200 mg/dLBorderline high cholesterol 200-239 mg/dLHigh cholesterol >=240 mg/dLRecommendations of the NCEP Adult Treatment Panel for thefollowing risk-cutoff thresholds for the [place] Americanpulation. Performed By: #### L 504.2610, L501.9520, L500.4100, L001.0705, L100.0100, L500.2500 ####[facility] [address] [place], [address] Cholesterol in HDL [Mass/Vol] 42 mg/dL Normal [facility] Comment on above: Result Comment: Audrey onal Cholesterol Education Program (NCEP) guidelines:<40 mg/dL: Low HDL-cholesterol (major risk factor for CHD)>= 60 mg/dL: High HDL-cholesterol (negative risk factor forCHD)HDL-cholesterol is affected by a number of factors, e.g.smoking, exercise, hormones, sex and age. Performed By: #### L 504.2610, L501.9520, L500.4100, L001.0705, L100.0100, L500.2500 ####[facility] [address] [place], [address] Cholesterol in LDL [Mass/Vol] 4 mg/dL Normal [facility] Comment on above: Result Comment: Bord okflkl=811-065 mg/dL Higher Kolc=329 mg/dL or greaterFriedwald Equation for LDL-C Performed By: #### L 504.2610, L501.9520, L500.4100, L001.0705, L100.0100, L500.2500 ####[facility] [address] [place], [address] Cholesterol in VLDL [Mass/Vol] 14 mg/dL Normal 5-40 [facility] Comment on above: Performed By: #### L 504.2610, L501.9520, L500.4100, L001.0705, L100.0100, L500.2500 ####[facility] [address] [place], [address] Triglyceride [Mass/Vol] 69 mg/dL Normal [facility] Comment on above: Result Comment: The drugs N-Acetylcysteine and Metamizole may falselydepress this assay.Normal range: <150 mg/dLBorderline High: 150-199 mg/dLHigh: 200-499 mg/dLVery High: >500 mg/dL Performed By: #### L 504.2610, L501.9520, L500.4100, L001.0705, L100.0100, L500.2500 ####[facility] [address] [place], [address] M8200.1000on 11-23-2024 M8200.1000 Normal Reference Ran ge = Negative MRSA DNA Nose Ql HAYDER+probe GeneXpert Instrument, PCR method MRSA PCR MRSA NEGATIVE Normal [facility] Comment on above: Performed By: #### M 8200.1000 ####[facility] [address] [place], [address] Partial Thromboplast Timeon 11-23-2024 aPTT Coag (Bld) [Time] 35.0 s Normal 24.1-36.2 [facility] Comment on above: Performed By: #### L 300.4310, L300.3900 ####[facility] [address] [place], [address] Protein, Totalon 11-23-2024 T PROT Normal 5.9-8.4 [facility] Comment on above: Result Comment: DUPL ICATE-TESTING DONE AT 0459 Performed By: #### L 001.0705 ####[facility] [address] [place], [address] T PROT 6.2 g/dL Normal 5.9-8.4 [facility] Comment on above: Performed By: #### L 504.2610, L501.9520, L500.4100, L001.0705, L100.0100, L500.2500 ####[facility] [address] [place], [address] Prothrombin Time w/INRon INR Coag (PPP) [Relative time] 1.5 {INR} Normal [facility] Comment on above: Performed By: #### L 300.4310, L300.3900 ####[facility] [address] [place], [address] PT Coag (PPP) [Time] 18.6 s High 11.7-14.9 [facility] Comment on above: Performed By: #### L 300.4310, L300.3900 ####[facility] [address] [place], [address] RESPIRATORY PANEL MOLECULARo n 11-23-2024 RP PANEL Normal [facility] Comment on above: Performed By: #### M 100.638 ####[facility] [address] [place], [address] Strep pneumoniae Antig(UR,CS F)on 11-23-2024 STPAG Normal [facility] Comment on above: Performed By: #### M 300.4600, M300.4500 ####[facility] [address] [place], [address] Thyroid Stim Hormone (TSH)on 11-23-2024 TSH 1.250 uIU/mL Normal 0.300-4.20 0 [facility] Comment on above: Performed By: #### L 504.2610, L501.9520, L500.4100, L001.0705, L100.0100, L500.2500 ####[facility] [address] [place], [address] Urine Cultureon 11-23-2024 URC Culture exhibits no growth. Normal [facility] Comment on above: Performed By: #### L 400.0001, M100.2200 ####[facility] [address] [place], [address] Urine Electrolytes- Randomon 11-23-2024 Chloride,URINE 79 mmol/L Normal Not Establ. [facility] Comment on above: Performed By: #### L 500.9400 ####[facility] [address] [place], [address] Sodium (U) [Moles/Vol] 73 mmol/L Normal Not Establ. [facility] Comment on above: Performed By: #### L 500.9400 ####[facility] [address] [place], [address] UR K 27.7 mmol/L Normal Not Establ. [facility] Comment on above: Performed By: #### L 500.9400 ####[facility] [address] [place], [place], [id number] 12 Lead EKGon 11-22-2024 12 Lead EKG Normal [facility] Absolute lymphocyte countOrd ered By: Devin Curry on 11-22-2024 Lymphocytes Auto (Unsp spec) [#/Vol] 0.69 10*3/uL Low 0.83-4.51 [facility] Activated partial thrombopla stin time (aPTT) in platelet poor plasma by coagulation aOrdered By: Devin Curry on 11-22-2024 aPTT Coag (PPP) [Time] 29.5 s 24.1-36.2 [facility] Anion gap in Serum or Plasma Ordered By: Devin Curry on 11-22-2024 Anion gap [Moles/Vol] 18 mmol/L High 5-15 [facility] Automated lymphocyte count a s percentage of total leukocytesOrdered By: Devin Curry on 11-22-2024 Lymphocytes/100 WBC Auto (Unsp spec) 12.7 % Low 19-41 [facility] BUN/creatinine ratioOrdered By: Devin Curry on 11-22-2024 Urea nitrogen/Creatinine [Mass ratio] 20.9 mg/mg High 10-20 [facility] Basophil percentageOrdered B y: Devin Curry on 11-22-2024 Basophils/100 WBC (Bld) 0.2 % 0-1 [facility] Bedside Glucoseon 11-22-2024 FINGERSTICK GLU 221 mg/dL High 74-106 [facility] Comment on above: Result Comment: SNEHA GEMENT OF PATIENT CARE PER NURSING PROTOCOL Performed By: #### L 501.080 ####[facility] [address] [place], [address] FINGERSTICK GLU 275 mg/dL High 74-106 [facility] Comment on above: Result Comment: SNEHA GEMENT OF PATIENT CARE PER NURSING PROTOCOL Performed By: #### L 501.080 ####[facility] [address] [place], [address] Bilirubin, totalOrdered By: Devin Curry on 11-22-2024 Bilirubin [Mass/Vol] 1.18 mg/dL 0.00-1.30 [facility] Blood Gases by CPSon 025 MOY TEST Negative Normal [facility] Comment on above: Performed By: #### L 9000.0800 ####[facility] [address] [place], [address] Base excess Calc (Bld) [Moles/Vol] -9 mmol/L Low -2 to +2 [facility] Comment on above: Performed By: #### L 9000.0800 ####[facility] [address] [place], [address] Blood Gas Type ART [facility] Comment on above: Performed By: #### L 9000.0800 ####[facility] [address] [place], [address] CO2 [Moles/Vol] 16 mmol/L [facility] Comment on above: Performed By: #### L 9000.0800 ####[facility] [address] [place], [address] HCO3 (Bld) [Moles/Vol] 15.0 mmol/L Low 22-26 [facility] Comment on above: Performed By: #### L 9000.0800 ####[facility] [address] [place], [address] Mode Not entered [facility] Comment on above: Performed By: #### L 9000.0800 ####[facility] [address] [place], [address] O2 Delivery Dev Room Air [facility] Comment on above: Performed By: #### L 9000.0800 ####[facility] [address] [place], [address] pCO2 22.6 mmHg Low 35-45 [facility] Comment on above: Performed By: #### L 9000.0800 ####[facility] [address] [place], [address] pH (Bld) 7.43 [pH] Normal 7.35-7.45 [facility] Comment on above: Performed By: #### L 9000.0800 ####[facility] [address] [place], [address] PO2 74 mmHG Low 75-100 [facility] Comment on above: Performed By: #### L 9000.0800 ####[facility] [address] [place], [address] SITE R Radial Normal [facility] Comment on above: Performed By: #### L 9000.0800 ####[facility] [address] [place], [address] SO2 96 Normal 95-99 [facility] Comment on above: Performed By: #### L 9000.0800 ####[facility] [address] [place], [address] Blood manual differential co mment interpretation (narrative result)Ordered By: Devin Curry on 11-22-2024 Manual differential comment Stevie (Bld) [Interp] See comment [facility] CBC W/Diff, Automatedon 11-04 SMEAR COMMENT Normal [facility] Comment on above: Result Comment: BAND S NOTED Performed By: #### L 100.0100, L500.4050, L300.3900, M200.1000, L503.6005, L300.4310 ####[facility] [address] [place], [address] CTA Chst, Abd, Pel W and/or WOon 11-22-2024 CTA Chst, Abd, Pel W and/or WO Normal [facility] Carbon dioxide, total [Moles /volume] in Central venous bloodOrdered By: Devin Curry on 11-22-2024 CO2 [Moles/Vol] 18.6 mmol/L Low 21.0-32.0 [facility] Chest 1 View (Portable)on Chest 1 View (Portable) Normal [facility] Chloride assayOrdered By: Davian Curry on 11-22-2024 Chloride [Moles/Vol] 102 mmol/L 98-108 [facility] Comprehensive Metabolic Prof ilon 11-22-2024 Albumin [Mass/Vol] 3.7 g/dL Normal 3.4-4.8 [facility] Comment on above: Performed By: #### L 100.0100, L500.4050, L300.3900, M200.1000, L503.6005, L300.4310 ####[facility] [address] [place], [address] Albumin/Globulin [Mass ratio] 1.1 {ratio} Normal 0.9-2.4 [facility] Comment on above: Performed By: #### L 100.0100, L500.4050, L300.3900, M200.1000, L503.6005, L300.4310 ####[facility] [address] [place], [address] ALK PHOS 127 U/L Normal 40-129 [facility] Comment on above: Performed By: #### L 100.0100, L500.4050, L300.3900, M200.1000, L503.6005, L300.4310 ####[facility] [address] [place], [address] ALT [Catalytic activity/Vol] 26 U/L Normal <=46 [facility] Comment on above: Performed By: #### L 100.0100, L500.4050, L300.3900, M200.1000, L503.6005, L300.4310 ####[facility] [address] [place], [address] AST [Catalytic activity/Vol] 33 U/L Normal <=37 [facility] Comment on above: Performed By: #### L 100.0100, L500.4050, L300.3900, M200.1000, L503.6005, L300.4310 ####[facility] [address] [place], [address] Bilirubin [Mass/Vol] 1.18 mg/dL Normal 0.00-1.30 [facility] Comment on above: Performed By: #### L 100.0100, L500.4050, L300.3900, M200.1000, L503.6005, L300.4310 ####[facility] [address] [place], [address] BUN/CRE 20.9 RATIO High 10-20 [facility] Comment on above: Performed By: #### L 100.0100, L500.4050, L300.3900, M200.1000, L503.6005, L300.4310 ####[facility] [address] [place], [address] Calcium [Mass/Vol] 9.4 mg/dL Normal 7.6-11.0 [facility] Comment on above: Performed By: #### L 100.0100, L500.4050, L300.3900, M200.1000, L503.6005, L300.4310 ####[facility] [address] [place], [address] Chloride [Moles/Vol] 102 mmol/L Normal 98-108 [facility] Comment on above: Performed By: #### L 100.0100, L500.4050, L300.3900, M200.1000, L503.6005, L300.4310 ####[facility] [address] [place], [address] CO2 [Moles/Vol] 18.6 mmol/L Low 21.0-32.0 [facility] Comment on above: Performed By: #### L 100.0100, L500.4050, L300.3900, M200.1000, L503.6005, L300.4310 ####[facility] [address] [place], [address] Creatinine [Mass/Vol] 1.25 mg/dL High 0.70-1.20 [facility] Comment on above: Performed By: #### L 100.0100, L500.4050, L300.3900, M200.1000, L503.6005, L300.4310 ####[facility] [address] [place], [address] ECRCL 70.92 ml/min Normal 50-250 [facility] Comment on above: Performed By: #### L 100.0100, L500.4050, L300.3900, M200.1000, L503.6005, L300.4310 ####[facility] [address] [place], [address] GAP 18 High 5-15 [facility] Comment on above: Performed By: #### L 100.0100, L500.4050, L300.3900, M200.1000, L503.6005, L300.4310 ####[facility] [address] [place], [address] GFR/1.73 sq M.predicted among non-blacks MDRD (S/P/Bld) [Vol rate/Area] 64 mL/min/{1.73_m2} Normal >60 [facility] Comment on above: Result Comment: mL/m in/1.73m2 CKD-EPI Creatinine Equation (2020) Performed By: #### L 100.0100, L500.4050, L300.3900, M200.1000, L503.6005, L300.4310 ####[facility] [address] [place], [address] Globulin (S) [Mass/Vol] 3.3 g/dL Normal 2.2-4.2 [facility] Comment on above: Performed By: #### L 100.0100, L500.4050, L300.3900, M200.1000, L503.6005, L300.4310 ####[facility] [address] [place], [address] Glucose [Mass/Vol] 211 mg/dL High 70-99 [facility] Comment on above: Performed By: #### L 100.0100, L500.4050, L300.3900, M200.1000, L503.6005, L300.4310 ####[facility] [address] [place], [address] Potassium [Moles/Vol] 4.3 mmol/L Normal 3.3-5.1 [facility] Comment on above: Performed By: #### L 100.0100, L500.4050, L300.3900, M200.1000, L503.6005, L300.4310 ####[facility] [address] [place], [address] Sodium [Moles/Vol] 139 mmol/L Normal 133-145 [facility] Comment on above: Performed By: #### L 100.0100, L500.4050, L300.3900, M200.1000, L503.6005, L300.4310 ####[facility] [address] [place], [address] T PROT 7.1 g/dL Normal 5.9-8.4 [facility] Comment on above: Performed By: #### L 100.0100, L500.4050, L300.3900, M200.1000, L503.6005, L300.4310 ####[facility] [address] [place], [address] Urea nitrogen [Mass/Vol] 26 mg/dL High 4-19 [facility] Comment on above: Performed By: #### L 100.0100, L500.4050, L300.3900, M200.1000, L503.6005, L300.4310 ####[facility] [address] [place], [place], [address] D-Dimer Quantitative (DVT/PE )on 11-22-2024 D-DIMER QUANT 1.01 FEU/ug/m Invalid Interpretation Code 0.27-0.49 [facility] Comment on above: Result Comment: D-Di armando ELEVATED (>0.49): Additional studies and clinicalassessments are indicated to conclude diagnosis of:Deep Vein Thrombosis (DVT) or Pulmonary Embolism (PE)CRITICAL VALUE CALLED TO MAURICIO WILCOX11/22/[id number] Sonja Lees.RESULTS READ BACK BY SAME. Performed By: #### L 300.8000 ####[facility] [address] [place], [place], [id number] Emergency Department Summary on 11-22-2024 Emergency Department Summary Normal [facility] Eosinophil percentageOrdered By: Devin Curry on 11-22-2024 Eosinophils/100 WBC (Bld) 0.0 % 0-5 [facility] Erythrocyte distribution wid th ratioOrdered By: Devin Curry on 11-22-2024 Erythrocyte distribution width (RBC) [Ratio] 14.6 % 11.6-14.6 [facility] Erythrocyte distribution wid th standard deviationOrdered By: Devin Curry on 11-22-2024 Erythrocyte distribution width (RBC) [Ratio] 50.2 fl High 35.1-43.9 [facility] Glomerular filtration rate ( GFR) estimation/1.73 sq m using serum, plasma, or whole bOrdered By: Devin Curry on 11-22-2024 GFR/1.73 sq M.predicted among non-blacks MDRD (S/P/Bld) [Vol rate/Area] 64 mL/min/{1.73_m2} >60 [facility] H AND P Exam - Hospitaliston 11-22-2024 H&P Exam - Hospitalist Normal [facility] HIP, UNI W/ Pelvis 2-3 Views on 11-22-2024 HIP, UNI W/ Pelvis 2-3 Views Normal [facility] Hematocrit Auto (Bld) [Volum e fraction]Ordered By: Devin Curry on 11-22-2024 Hematocrit (Bld) [Volume fraction] 42.5 % 40-54 [facility] Hemoglobin measurementOrdere d By: Devin Curry on 11-22-2024 Hemoglobin (Bld) [Mass/Vol] 13.6 g/dL 13.0-16.5 [facility] Immature granulocytes/100 WB C Auto (Bld)Ordered By: Devin Curry on 11-22-2024 Immature granulocytes/100 WBC (Bld) 0.400 % 0.0-0.9 [facility] L509.7001on 11-22-2024 Procalcitonin 10.60 ng/mL High <=0.10 [facility] Comment on above: Order Comment: Comme nts: may add to ED labs Result Comment: Inte rpretation:<0.10-0.25 ng/mL: Antibiotic therapy discouraged. Bacterialinfection unlikely.0.25-0.50 ng/mL: Antibiotic therapy encouraged. Bacterialinfection possible.>0.50 ng/mL: Antibiotic therapy strongly encouraged.Suggestive of presence of bacterial infection.PCT should always be interpreted in the clinical context ofthe patient. Therefore, clinicians should use the PCTresults in conjunction with other laboratory findings andclinical signs of the patient. Performed By: #### L 501.5200, L509.7001 ####[facility] [address] [place], [place], [address] Lactic Acidon 11-22-2024 Lactate [Moles/Vol] 5.6 mmol/L Invalid Interpretation Code 0.0-2.0 [facility] Comment on above: Order Comment: Y Result Comment: Crit ical Result(s) Called at: 6 by: KAVEH QUINN READ??Results read back by same. Performed By: #### L 503.6005 ####[facility] [address] [place], [place], [address] Lactate [Moles/Vol] 4.8 mmol/L Invalid Interpretation Code 0.0-2.0 [facility] Comment on above: Result Comment: Crit ical Result(s) Called at: 1640 by: KAVEH PAINTER??Results read back by same. Performed By: #### L 503.6005 ####[facility] [address] [place], [place], [address] Lactate [Moles/Vol] 4.1 mmol/L Invalid Interpretation Code 0.0-2.0 [facility] Comment on above: Order Comment: Y Result Comment: Crit ical Result(s) Called to: Ana Goetz RN (ER) by: Cecy Banda??Results read back by same. Performed By: #### L 100.0100, L500.4050, L300.3900, M200.1000, L503.6005, L300.4310 ####[facility] [address] [place], [place], [id number] MCV (mean corpuscular volume ) determinationOrdered By: Devin Curry on 11-22-2024 MCV (RBC) [Entitic vol] 93.0 fL 80-94 [facility] Magnesiumon 11-22-2024 Magnesium [Mass/Vol] 2.0 mg/dL Normal 1.5-2.2 [facility] Comment on above: Order Comment: Comme nts: may add to ED labs Performed By: #### L 501.5200, L509.7001 ####[facility] [address] [place], [place], [address] Mean corpuscular hemoglobin (MCH) determinationOrdered By: Devin Curry on 11-22-2024 MCH (RBC) [Entitic mass] 29.8 pg 27.0-32.0 [facility] Monocyte percentageOrdered B y: Devin Curry on 11-22-2024 Monocytes/100 WBC (Bld) 6.4 % 0-10 [facility] Neutrophil percentageOrdered By: Devin Curry on 11-22-2024 Neutrophils/100 WBC (Bld) 80.3 % High 47-70 [facility] No Panel InformationOrdered By: Devin Curry on 11-22-2024 33 U/L <38 [facility] Partial Thromboplast Timeon 11-22-2024 aPTT Coag (Bld) [Time] 29.5 s Normal 24.1-36.2 [facility] Comment on above: Performed By: #### L 100.0100, L500.4050, L300.3900, M200.1000, L503.6005, L300.4310 ####[facility] [address] [place], [address] Platelet countOrdered By: Davian Curry on 11-22-2024 Platelets (Bld) [#/Vol] 392 10*3/uL 150-450 [facility] Potassium measurement (mass/ volume)Ordered By: Devin Curry on 11-22-2024 Potassium (Unsp spec) [Mass/Vol] 4.3 mmol/L 3.3-5.1 [facility] Pro- Brain NATRIURETIC PEPTI Sylvia 11-22-2024 Natriuretic peptide B (Bld) [Mass/Vol] 90009 pg/mL High <=900 [facility] Comment on above: Result Comment: Hear t Failure Unlikely: < 300 pg/mLHeart Failure Likely< 50 Years: > 450 pg/mL50-75 Years: > 900 pg/mL>75 Years: > 1800 pg/mL Performed By: #### L 503.7501 ####[facility] [address] [place], [address] Prothrombin Time w/INRon INR Coag (PPP) [Relative time] 1.2 {INR} Normal [facility] Comment on above: Performed By: #### L 100.0100, L500.4050, L300.3900, M200.1000, L503.6005, L300.4310 ####[facility] [address] [place], [address] PT Coag (PPP) [Time] 15.6 s High 11.7-14.9 [facility] Comment on above: Performed By: #### L 100.0100, L500.4050, L300.3900, M200.1000, L503.6005, L300.4310 ####[facility] [address] [place], [address] Prothrombin timeOrdered By: Devin Curry on 11-22-2024 PT Coag (PPP) [Time] 15.6 s High 11.7-14.9 [facility] RBC Auto (Bld) [#/Vol]Ordere d By: Devin Curry on 11-22-2024 RBC (Bld) [#/Vol] 4.57 10*6/uL Low 4.6-6.2 [facility] Serum creatinine measurement (mass/volume)Ordered By: Devin Curry on 11-22-2024 Creatinine [Mass/Vol] 1.25 mg/dL High 0.70-1.20 [facility] Serum globulin measurementOr dered By: Devin Curry on 11-22-2024 Globulin (S) [Mass/Vol] 3.3 g/dL 2.2-4.2 [facility] Serum glucose measurement (m ass/volume)Ordered By: Devin Curry on 11-22-2024 Glucose [Mass/Vol] 211 mg/dL High 70-99 [facility] Serum or plasma alanine martino otransferase (ALT) measurementOrdered By: Devin Curry on 11-22-2024 ALT [Catalytic activity/Vol] 26 U/L <47 [facility] Serum or plasma albumin brenda urement (mass/volume)Ordered By: Devin Curry on 11-22-2024 Albumin [Mass/Vol] 3.7 g/dL 3.4-4.8 [facility] Serum or plasma albumin/glob ulin mass ratioOrdered By: Devin Curry on 11-22-2024 Albumin/Globulin [Mass ratio] 1.1 {ratio} 0.9-2.4 [facility] Serum or plasma alkaline yulia sphatase measurementOrdered By: Devin Curry on 11-22-2024 ALP [Catalytic activity/Vol] 127 U/L 40-129 [facility] Serum or plasma calcium brenda urement (mass/volume)Ordered By: Devin Curry on 11-22-2024 Calcium [Mass/Vol] 9.4 mg/dL 7.6-11.0 [facility] Serum or plasma urea nitroge n measurement (mass/volume)Ordered By: Devin Curry on 11-22-2024 Urea nitrogen [Mass/Vol] 26 mg/dL High 4-19 [facility] Sodium levelOrdered By: Devin Curry on 11-22-2024 Sodium [Moles/Vol] 139 mmol/L 133-145 [facility] Total proteinOrdered By: Yann mark Patricio on 11-22-2024 Protein [Mass/Vol] 7.1 g/dL 5.9-8.4 [facility] Urinalysis, Completeon 11-22 CAST,COARSE GR 0-5 SEEN Normal 0-5 /lpf [facility] Comment on above: Order Comment: COLOR OF URINE MAY AFFECT DIPSTICK RESULTS.PRODUCTION MACHINE SHOP SUPERVISOR TO SPECIFY Performed By: #### L 400.0001, M1.2199 ####[facility] [address] [place], [address] CAST,FINE GRAN 5-10 SEEN Normal 0-5 [facility] Comment on above: Order Comment: COLOR OF URINE MAY AFFECT DIPSTICK RESULTS.PRODUCTION MACHINE SHOP SUPERVISOR TO SPECIFY Performed By: #### L 400.0001, M1.2199 ####[facility] [address] [place], [address] CAST,HYALINE 25-50 SEEN Normal 0-5 [facility] Comment on above: Order Comment: COLOR OF URINE MAY AFFECT DIPSTICK RESULTS.PRODUCTION MACHINE SHOP SUPERVISOR TO SPECIFY Performed By: #### L 400.0001, M1.2199 ####[facility] [address] [place], [address] RBC 0-5 SEEN Normal 0-5 [facility] Comment on above: Order Comment: COLOR OF URINE MAY AFFECT DIPSTICK RESULTS.PRODUCTION MACHINE SHOP SUPERVISOR TO SPECIFY Performed By: #### L 400.0001, M100.0 ####[facility] [address] [place], [address] WBC 5-10 SEEN Normal 0-5 [facility] Comment on above: Order Comment: COLOR OF URINE MAY AFFECT DIPSTICK RESULTS.PRODUCTION MACHINE SHOP SUPERVISOR TO SPECIFY Performed By: #### L 400.0001, M100.2200 ####[facility] [address] [place], [address] BACTERIA 0 SEEN Normal None Seen [facility] Comment on above: Order Comment: COLOR OF URINE MAY AFFECT DIPSTICK RESULTS.PRODUCTION MACHINE SHOP SUPERVISOR TO SPECIFY Performed By: #### L 400.0001, M100.2200 ####[facility] [address] [place], [address] EPI,SQUAMOUS 0 SEEN Normal 0-5 [facility] Comment on above: Order Comment: COLOR OF URINE MAY AFFECT DIPSTICK RESULTS.PRODUCTION MACHINE SHOP SUPERVISOR TO SPECIFY Performed By: #### L 400.0001, M100.2200 ####[facility] [facility] [address] [place], [address] Mucus Ql (Urine sed) 0 SEEN Normal [facility] [place] Comment on above: Order Comment: COLOR OF URINE MAY AFFECT DIPSTICK RESULTS.PRODUCTION MACHINE SHOP SUPERVISOR TO SPECIFY Performed By: #### L 400.0001, M100.2200 ####[facility] [address] [place], [address] Venous Duplex US - Felipe Extre mon 11-22-2024 Venous Duplex US - Felipe Extrem Normal [facility] White blood cell (WBC) count Ordered By: Devin Curry on 11-22-2024 WBC (Bld) [#/Vol] 5.4 10*3/uL 4.4-11.0 [facility] MR/BMS.BVSon 11-16-2024 MR/BMS.BVS Normal [facility] Basic Metabolic Profile (BMP )on 11-14-2024 BUN Normal 4-19 [facility] Comment on above: Result Comment: Canc elled via OM: Order cancelled - Patient discharged Performed By: #### L 100.0100, L500.2500 ####[facility] [address] [place], [address] BUN/CRE Normal 10-20 [facility] Comment on above: Result Comment: Canc elled via OM: Order cancelled - Patient discharged Performed By: #### L 100.0100, L500.2500 ####[facility] [address] [place], [address] Calcium Normal 7.6-11.0 [facility] Comment on above: Result Comment: Canc elled via OM: Order cancelled - Patient discharged Performed By: #### L 100.0100, L500.2500 ####[facility] [address] [place], [address] CL Normal 98-108 [facility] Comment on above: Result Comment: Canc elled via OM: Order cancelled - Patient discharged Performed By: #### L 100.0100, L500.2500 ####[facility] [address] [place], [address] CO2 Normal 21.0-32.0 [facility] Comment on above: Result Comment: Canc elled via OM: Order cancelled - Patient discharged Performed By: #### L 100.0100, L500.2500 ####[facility] [address] [place], [address] CREAT,SERUM Normal 0.70-1.20 [facility] Comment on above: Result Comment: Canc elled via OM: Order cancelled - Patient discharged Performed By: #### L 100.0100, L500.2500 ####[facility] [address] [place], [address] eGFR Normal >60 [facility] Comment on above: Result Comment: Canc elled via OM: Order cancelled - Patient discharged Performed By: #### L 100.0100, L500.2500 ####[facility] [address] [place], [address] GAP Normal 5-15 [facility] Comment on above: Result Comment: Canc elled via OM: Order cancelled - Patient discharged Performed By: #### L 100.0100, L500.2500 ####[facility] [address] [place], [address] GLU Normal 70-99 [facility] Comment on above: Result Comment: Canc elled via OM: Order cancelled - Patient discharged Performed By: #### L 100.0100, L500.2500 ####[facility] [address] [place], [address] Potassium Normal 3.3-5.1 [facility] Comment on above: Result Comment: Canc elled via OM: Order cancelled - Patient discharged Performed By: #### L 100.0100, L500.2500 ####[facility] [address] [place], [address] Basic Metabolic Profile (BMP) Normal 133-145 [facility] Comment on above: Result Comment: Canc elled via OM: Order cancelled - Patient discharged Performed By: #### L 100.0100, L500.2500 ####[facility] [address] [place], [address] CBC W/Diff, Automatedon 08-1 Absolute Neut Normal 2.0-7.7 [facility] Comment on above: Result Comment: Canc elled via OM: Order cancelled - Patient discharged Performed By: #### L 100.0100, L500.2500 ####[facility] [address] [place], [address] HCT Normal 40-54 [facility] Comment on above: Result Comment: Canc elled via OM: Order cancelled - Patient discharged Performed By: #### L 100.0100, L500.2500 ####[facility] [address] [place], [address] HGB Normal 13.0-16.5 [facility] Comment on above: Result Comment: Canc elled via OM: Order cancelled - Patient discharged Performed By: #### L 100.0100, L500.2500 ####[facility] [address] [place], [address] MCH Normal 27.0-32.0 [facility] Comment on above: Result Comment: Canc elled via OM: Order cancelled - Patient discharged Performed By: #### L 100.0100, L500.2500 ####[facility] [address] [place], [address] MCHC Normal 32-36 [facility] Comment on above: Result Comment: Canc elled via OM: Order cancelled - Patient discharged Performed By: #### L 100.0100, L500.2500 ####[facility] [address] [place], [address] MCV Normal 80-94 [facility] Comment on above: Result Comment: Canc elled via OM: Order cancelled - Patient discharged Performed By: #### L 100.0100, L500.2500 ####[facility] [address] [place], [address] NEUT% Normal 47-70 [facility] Comment on above: Result Comment: Canc elled via OM: Order cancelled - Patient discharged Performed By: #### L 100.0100, L500.2500 ####[facility] [address] [place], [address] PLT Normal 150-450 [facility] Comment on above: Result Comment: Canc elled via OM: Order cancelled - Patient discharged Performed By: #### L 100.0100, L500.2500 ####[facility] [address] [place], [address] RBC Normal 4.6-6.2 [facility] Comment on above: Result Comment: Canc elled via OM: Order cancelled - Patient discharged Performed By: #### L 100.0100, L500.2500 ####[facility] [address] [place], [address] RDW CV Normal 11.6-14.6 [facility] Comment on above: Result Comment: Canc elled via OM: Order cancelled - Patient discharged Performed By: #### L 100.0100, L500.2500 ####[facility] [address] [place], [address] RDW SD Normal 35.1-43.9 [facility] Comment on above: Result Comment: Canc elled via OM: Order cancelled - Patient discharged Performed By: #### L 100.0100, L500.2500 ####[facility] [address] [place], [address] WBC Normal 4.4-11.0 [facility] Comment on above: Result Comment: Canc elled via OM: Order cancelled - Patient discharged Performed By: #### L 100.0100, L500.2500 ####[facility] [address] [place], [address] Absolute lymphocyte countOrd ered By: Steve Fields on 11-13-2024 Lymphocytes Auto (Unsp spec) [#/Vol] 1.48 10*3/uL 0.83-4.51 [facility] Anion gap in Serum or Plasma Ordered By: Steve Fields on 11-13-2024 Anion gap [Moles/Vol] 11 mmol/L 5-15 [facility] Automated lymphocyte count a s percentage of total leukocytesOrdered By: Steve Fields on 11-13-2024 Lymphocytes/100 WBC Auto (Unsp spec) 20.0 % - [facility] BUN/creatinine ratioOrdered By: Steve Fields on 11-13-2024 Urea nitrogen/Creatinine [Mass ratio] 22.2 mg/mg High 01-23 [facility] Basic Metabolic Profile (BMP )on 11-13-2024 BUN/CRE 22.2 RATIO High 01-23 [facility] Comment on above: Performed By: #### L 100.0100, L500.2500 ####[facility] [address] [place], [address] Calcium [Mass/Vol] 8.8 mg/dL Normal 7.6-11.0 [facility] Comment on above: Performed By: #### L 100.0100, L500.2500 ####[facility] [address] [place], [address] Chloride [Moles/Vol] 100 mmol/L Normal 98-108 [facility] [place] Comment on above: Performed By: #### L 100.0100, L500.2500 ####[facility] [address] [place], [address] CO2 [Moles/Vol] 26.1 mmol/L Normal 21.0-32.0 [facility] Comment on above: Performed By: #### L 100.0100, L500.2500 ####[facility] [address] [place], [address] Creatinine [Mass/Vol] 0.98 mg/dL Normal 0.70-1.20 [facility] Comment on above: Performed By: #### L 100.0100, L500.2500 ####[facility] [address] [place], [address] ECRCL 89.59 ml/min Normal 50-250 [facility] Comment on above: Performed By: #### L 100.0100, L500.2500 ####[facility] [address] [place], [address] GAP 11 Normal 5-15 [facility] Comment on above: Performed By: #### L 100.0100, L500.2500 ####[facility] [address] [place], [address] GFR/1.73 sq M.predicted among non-blacks MDRD (S/P/Bld) [Vol rate/Area] 86 mL/min/{1.73_m2} Normal >60 [facility] Comment on above: Result Comment: mL/m in/1.73m2 CKD-EPI Creatinine Equation (2020) Performed By: #### L 100.0100, L500.2500 ####[facility] [address] [place], [address] Glucose [Mass/Vol] 98 mg/dL Normal 70-99 [facility] Comment on above: Performed By: #### L 100.0100, L500.2500 ####[facility] [address] [place], [address] Potassium [Moles/Vol] 3.8 mmol/L Normal 3.3-5.1 [facility] Comment on above: Performed By: #### L 100.0100, L500.2500 ####[facility] [address] [place], [address] Sodium [Moles/Vol] 137 mmol/L Normal 133-145 [facility] Comment on above: Performed By: #### L 100.0100, L500.2500 ####[facility] [address] [place], [address] Urea nitrogen [Mass/Vol] 22 mg/dL High 4-19 [facility] Comment on above: Performed By: #### L 100.0100, L500.2500 ####[facility] [address] [place], [address] Basophil percentageOrdered B y: Steve Fields on 11-13-2024 Basophils/100 WBC (Bld) 0.3 % 0-1 [facility] Bedside Glucoseon 11-13-2024 FINGERSTICK GLU 200 mg/dL High 74-106 [facility] Comment on above: Result Comment: SNEHA TOLEDOENT OF PATIENT CARE PER NURSING PROTOCOL Performed By: #### L 501.080 ####[facility] [address] [place], [address] FINGERSTICK GLU 88 mg/dL Normal 74-106 [facility] Comment on above: Result Comment: SNEHA GEMENT OF PATIENT CARE PER NURSING PROTOCOL Performed By: #### L 501.080 ####[facility] [address] [place], [address] CBC W/Diff, Automatedon 08- 0-2024 Absolute Lymph 1.48 X10 3/uL Normal 0.83-4.51 [facility] Comment on above: Performed By: #### L 100.0100, L500.2500 ####[facility] [address] [place], [address] Absolute Neut 5.0 X10 3/uL Normal 2.0-7.7 [facility] Comment on above: Performed By: #### L 100.0100, L500.2500 ####[facility] [address] [place], [address] Basophils/100 WBC (Bld) 0.3 % Normal 0-1 [facility] Comment on above: Performed By: #### L 100.0100, L500.2500 ####[facility] [address] [place], [address] Eosinophils/100 WBC (Bld) 3.1 % Normal 0-5 [facility] Comment on above: Performed By: #### L 100.0100, L500.2500 ####[facility] [address] [place], [address] Erythrocyte distribution width (RBC) [Ratio] 14.1 % Normal 11.6-14.6 [facility] Comment on above: Performed By: #### L 100.0100, L500.2500 ####[facility] [address] [place], [address] Hematocrit (Bld) [Volume fraction] 39.8 % Low 40-54 [facility] Comment on above: Performed By: #### L 100.0100, L500.2500 ####[facility] [address] [place], [address] Hemoglobin (Bld) [Mass/Vol] 12.9 g/dL Low 13.0-16.5 [facility] Comment on above: Performed By: #### L 100.0100, L500.2500 ####[facility] [address] [place], [address] IG% 0.400 Normal 0.0-0.9 [facility] Comment on above: Result Comment: IG% - Immature Granulocytes (promyelocytes, myelocytes andmetamyelocytes) > 1% indicates that a LEFT SHIFT is Present. Performed By: #### L 100.0100, L500.2500 ####[facility] [address] [place], [address] Lymphocytes/100 WBC (Bld) 20.0 % Normal 19-41 [facility] Comment on above: Performed By: #### L 100.0100, L500.2500 ####[facility] [address] [place], [address] MCH (RBC) [Entitic mass] 30.2 pg Normal 27.0-32.0 [facility] Comment on above: Performed By: #### L 100.0100, L500.2500 ####[facility] [address] [place], [address] MCHC (RBC) [Mass/Vol] 32.4 g/dL Normal 32-36 [facility] Comment on above: Performed By: #### L 100.0100, L500.2500 ####[facility] [address] [place], [address] MCV (RBC) [Entitic vol] 93.2 fL Normal 80-94 [facility] Comment on above: Performed By: #### L 100.0100, L500.2500 ####[facility] [address] [place], [address] Monocytes/100 WBC (Bld) 8.9 % Normal 0-10 [facility] Comment on above: Performed By: #### L 100.0100, L500.2500 ####[facility] [address] [place], [address] Neutrophils/100 WBC (Bld) 67.3 % Normal 47-70 [facility] Comment on above: Performed By: #### L 100.0100, L500.2500 ####[facility] [address] [place], [address] Nucleated RBC (Bld) [#/Vol] 0 10*3/uL Normal 0-5 [facility] Comment on above: Performed By: #### L 100.0100, L500.2500 ####[facility] [address] [place], [address] Platelet mean volume (Bld) [Entitic vol] 9.2 fL Normal 6.2-12.0 [facility] Comment on above: Performed By: #### L 100.0100, L500.2500 ####[facility] [address] [place], [address] Platelets (Bld) [#/Vol] 321 10*3/uL Normal 150-450 [facility] Comment on above: Performed By: #### L 100.0100, L500.2500 ####[facility] [address] [place], [address] RBC (Bld) [#/Vol] 4.27 10*6/uL Low 4.6-6.2 [facility] Comment on above: Performed By: #### L 100.0100, L500.2500 ####[facility] [address] [place], [address] RDW SD 47.8 fl High 35.1-43.9 [facility] Comment on above: Performed By: #### L 100.0100, L500.2500 ####[facility] [address] [place], [address] WBC (Bld) [#/Vol] 7.4 10*3/uL Normal 4.4-11.0 [facility] Comment on above: Performed By: #### L 100.0100, L500.2500 ####[facility] [address] [place], [place], [address] Carbon dioxide, total [Moles /volume] in Central venous bloodOrdered By: Steve Fields on 11-13-2024 CO2 [Moles/Vol] 26.1 mmol/L 21.0-32.0 [facility] Chloride assayOrdered By: Lencho Fields on 11-13-2024 Chloride [Moles/Vol] 100 mmol/L 98-108 [facility] [place] Eosinophil percentageOrdered By: Steve Fields on 11-13-2024 Eosinophils/100 WBC (Bld) 3.1 % 0-5 [facility] Erythrocyte distribution wid th ratioOrdered By: Steve Fields on 11-13-2024 Erythrocyte distribution width (RBC) [Ratio] 14.1 % 11.6-14.6 [facility] Erythrocyte distribution wid th standard deviationOrdered By: Steve Fields on 11-13-2024 Erythrocyte distribution width (RBC) [Ratio] 47.8 fl High 35.1-43.9 [facility] Glomerular filtration rate ( GFR) estimation/1.73 sq m using serum, plasma, or whole bOrdered By: Steve Fields on 11-13-2024 GFR/1.73 sq M.predicted among non-blacks MDRD (S/P/Bld) [Vol rate/Area] 86 mL/min/{1.73_m2} >60 [facility]: [facility] on 11-13-2024 Glucose [Mass/Vol] 200 mg/dL High 74-106 [facility] Hematocrit Auto (Bld) [Volum e fraction]Ordered By: Steve Fields on 11-13-2024 Hematocrit (Bld) [Volume fraction] 39.8 % Low 40-54 [facility] Hemoglobin measurementOrdere d By: Steve Fields on 11-13-2024 Hemoglobin (Bld) [Mass/Vol] 12.9 g/dL Low 13.0-16.5 [facility] Immature granulocytes/100 WB C Auto (Bld)Ordered By: Steve Fields on 11-13-2024 Immature granulocytes/100 WBC (Bld) 0.400 % 0.0-0.9 [facility] MCV (mean corpuscular volume ) determinationOrdered By: Steve Fields on 11-13-2024 MCV (RBC) [Entitic vol] 93.2 fL 80-94 [facility] Mean corpuscular hemoglobin (MCH) determinationOrdered By: Steve Fields on 11-13-2024 MCH (RBC) [Entitic mass] 30.2 pg 27.0-32.0 [facility] Monocyte percentageOrdered B y: Steve Fields on 11-13-2024 Monocytes/100 WBC (Bld) 8.9 % 0-10 [facility] Neutrophil percentageOrdered By: Steve Fields on 11-13-2024 Neutrophils/100 WBC (Bld) 67.3 % 47-70 [facility] Platelet countOrdered By: Lencho Fields on 11-13-2024 Platelets (Bld) [#/Vol] 321 10*3/uL 150-450 [facility] Potassium measurement (mass/ volume)Ordered By: Steve Fields on 11-13-2024 Potassium (Unsp spec) [Mass/Vol] 3.8 mmol/L 3.3-5.1 [facility] RBC Auto (Bld) [#/Vol]Ordere d By: Steve Fields on 11-13-2024 RBC (Bld) [#/Vol] 4.27 10*6/uL Low 4.6-6.2 [facility] Serum creatinine measurement (mass/volume)Ordered By: Steve Fields on 11-13-2024 Creatinine [Mass/Vol] 0.98 mg/dL 0.70-1.20 [facility] Serum glucose measurement (m ass/volume)Ordered By: Steve Fields on 11-13-2024 Glucose [Mass/Vol] 98 mg/dL 70-99 [facility] Serum or plasma calcium brenda urement (mass/volume)Ordered By: Steve Fields on 11-13-2024 Calcium [Mass/Vol] 8.8 mg/dL 7.6-11.0 [facility] Serum or plasma urea nitroge n measurement (mass/volume)Ordered By: Steve Fields on 11-13-2024 Urea nitrogen [Mass/Vol] 22 mg/dL High 4-19 [facility] Sodium levelOrdered By: Tye Fields on 11-13-2024 Sodium [Moles/Vol] 137 mmol/L 133-145 [facility] White blood cell (WBC) count Ordered By: Steve Fields on 11-13-2024 WBC (Bld) [#/Vol] 7.4 10*3/uL 4.4-11.0 [facility] Basic Metabolic Profile (BMP )on 11-12-2024 BUN/CRE 21.0 RATIO High 10-20 [facility] Comment on above: Performed By: #### L 500.2500, L501.5200, L501.2300, L100.0100 ####[facility] [address] [place], [address] Calcium [Mass/Vol] 9.2 mg/dL Normal 7.6-11.0 [facility] Comment on above: Performed By: #### L 500.2500, L501.5200, L501.2300, L100.0100 ####[facility] [address] [place], [address] Chloride [Moles/Vol] 99 mmol/L Normal 98-108 [facility] [place] Comment on above: Performed By: #### L 500.2500, L501.5200, L501.2300, L100.0100 ####[facility] [address] [place], [address] CO2 [Moles/Vol] 26.9 mmol/L Normal 21.0-32.0 [facility] Comment on above: Performed By: #### L 500.2500, L501.5200, L501.2300, L100.0100 ####[facility] [address] [place], [address] Creatinine [Mass/Vol] 1.16 mg/dL Normal 0.70-1.20 [facility] Comment on above: Performed By: #### L 500.2500, L501.5200, L501.2300, L100.0100 ####[facility] [address] [place], [address] ECRCL 75.69 ml/min Normal 50-250 [facility] Comment on above: Performed By: #### L 500.2500, L501.5200, L501.2300, L100.0100 ####[facility] [address] [place], [address] GAP 10 Normal 5-15 [facility] Comment on above: Performed By: #### L 500.2500, L501.5200, L501.2300, L100.0100 ####[facility] [address] [place], [address] GFR/1.73 sq M.predicted among non-blacks MDRD (S/P/Bld) [Vol rate/Area] 70 mL/min/{1.73_m2} Normal >60 [facility] Comment on above: Result Comment: mL/m in/1.73m2 CKD-EPI Creatinine Equation (2020) Performed By: #### L 500.2500, L501.5200, L501.2300, L100.0100 ####[facility] [address] [place], [address] Glucose [Mass/Vol] 143 mg/dL High 70-99 [facility] Comment on above: Performed By: #### L 500.2500, L501.5200, L501.2300, L100.0100 ####[facility] [address] [place], [address] Potassium [Moles/Vol] 4.2 mmol/L Normal 3.3-5.1 [facility] Comment on above: Performed By: #### L 500.2500, L501.5200, L501.2300, L100.0100 ####[facility] [address] [place], [address] Sodium [Moles/Vol] 137 mmol/L Normal 133-145 [facility] Comment on above: Performed By: #### L 500.2500, L501.5200, L501.2300, L100.0100 ####[facility] [address] [place], [address] Urea nitrogen [Mass/Vol] 24 mg/dL High 4-19 [facility] Comment on above: Performed By: #### L 500.2500, L501.5200, L501.2300, L100.0100 ####[facility] [address] [place], [address] Bedside Glucoseon 11-12-2024 FINGERSTICK GLU 253 mg/dL High 74-106 [facility] Comment on above: Result Comment: SNEHA GEMENT OF PATIENT CARE PER NURSING PROTOCOL Performed By: #### L 501.080 ####[facility] [address] [place], [address] FINGERSTICK GLU 201 mg/dL High 74-106 [facility] Comment on above: Result Comment: SNEHA GEMENT OF PATIENT CARE PER NURSING PROTOCOL Performed By: #### L 501.080 ####[facility] [address] [place], [address] FINGERSTICK GLU 154 mg/dL High 74-106 [facility] Comment on above: Result Comment: SNEHA GEMENT OF PATIENT CARE PER NURSING PROTOCOL Performed By: #### L 501.080 ####[facility] [address] [place], [address] FINGERSTICK GLU 132 mg/dL High 74-106 [facility] Comment on above: Result Comment: SNEHA GEMENT OF PATIENT CARE PER NURSING PROTOCOL Performed By: #### L 501.080 ####[facility] [address] [place], [address] CBC W/Diff, Automatedon 08-0 9-2024 Absolute Lymph 1.61 X10 3/uL Normal 0.83-4.51 [facility] Comment on above: Performed By: #### L 500.2500, L501.5200, L501.2300, L100.0100 ####[facility] [address] [place], [address] Absolute Neut 3.8 X10 3/uL Normal 2.0-7.7 [facility] Comment on above: Performed By: #### L 500.2500, L501.5200, L501.2300, L100.0100 ####[facility] [address] [place], [address] Basophils/100 WBC (Bld) 0.5 % Normal 0-1 [facility] Comment on above: Performed By: #### L 500.2500, L501.5200, L501.2300, L100.0100 ####[facility] [address] [place], [address] Eosinophils/100 WBC (Bld) 3.6 % Normal 0-5 [facility] Comment on above: Performed By: #### L 500.2500, L501.5200, L501.2300, L100.0100 ####[facility] [address] [place] [place], [address] Erythrocyte distribution width (RBC) [Ratio] 14.3 % Normal 11.6-14.6 [facility] Comment on above: Performed By: #### L 500.2500, L501.5200, L501.2300, L100.0100 ####[facility] [address] [place], [address] Hematocrit (Bld) [Volume fraction] 41.4 % Normal 40-54 [facility] Comment on above: Performed By: #### L 500.2500, L501.5200, L501.2300, L100.0100 ####[facility] [address] [place], [address] Hemoglobin (Bld) [Mass/Vol] 13.3 g/dL Normal 13.0-16.5 [facility] Comment on above: Performed By: #### L 500.2500, L501.5200, L501.2300, L100.0100 ####[facility] [address] [place], [address] IG% 0.300 Normal 0.0-0.9 [facility] Comment on above: Result Comment: IG% - Immature Granulocytes (promyelocytes, myelocytes andmetamyelocytes) > 1% indicates that a LEFT SHIFT is Present. Performed By: #### L 500.2500, L501.5200, L501.2300, L100.0100 ####[facility] [address] [place], [address] Lymphocytes/100 WBC (Bld) 25.4 % Normal 19-41 [facility] Comment on above: Performed By: #### L 500.2500, L501.5200, L501.2300, L100.0100 ####[facility] [address] [place], [address] MCH (RBC) [Entitic mass] 29.8 pg Normal 27.0-32.0 [facility] Comment on above: Performed By: #### L 500.2500, L501.5200, L501.2300, L100.0100 ####[facility] [address] [place], [address] MCHC (RBC) [Mass/Vol] 32.1 g/dL Normal 32-36 [facility] Comment on above: Performed By: #### L 500.2500, L501.5200, L501.2300, L100.0100 ####[facility] [address] [place], [address] MCV (RBC) [Entitic vol] 92.8 fL Normal 80-94 [facility] Comment on above: Performed By: #### L 500.2500, L501.5200, L501.2300, L100.0100 ####[facility] [address] [place], [address] Monocytes/100 WBC (Bld) 9.9 % Normal 0-10 [facility] Comment on above: Performed By: #### L 500.2500, L501.5200, L501.2300, L100.0100 ####[facility] [address] [place], [address] Neutrophils/100 WBC (Bld) 60.3 % Normal 47-70 [facility] Comment on above: Performed By: #### L 500.2500, L501.5200, L501.2300, L100.0100 ####[facility] [address] [place], [address] Nucleated RBC (Bld) [#/Vol] 0 10*3/uL Normal 0-5 [facility] Comment on above: Performed By: #### L 500.2500, L501.5200, L501.2300, L100.0100 ####[facility] [address] [place], [address] Platelet mean volume (Bld) [Entitic vol] 9.3 fL Normal 6.2-12.0 [facility] Comment on above: Performed By: #### L 500.2500, L501.5200, L501.2300, L100.0100 ####[facility] [address] [place], [address] Platelets (Bld) [#/Vol] 317 10*3/uL Normal 150-450 [facility] Comment on above: Performed By: #### L 500.2500, L501.5200, L501.2300, L100.0100 ####[facility] [address] [place], [address] RBC (Bld) [#/Vol] 4.46 10*6/uL Low 4.6-6.2 [facility] Comment on above: Performed By: #### L 500.2500, L501.5200, L501.2300, L100.0100 ####[facility] [address] [place], [address] RDW SD 47.9 fl High 35.1-43.9 [facility] Comment on above: Performed By: #### L 500.2500, L501.5200, L501.2300, L100.0100 ####[facility] [address] [place], [address] WBC (Bld) [#/Vol] 6.3 10*3/uL Normal 4.4-11.0 [facility] Comment on above: Performed By: #### L 500.2500, L501.5200, L501.2300, L100.0100 ####[facility] [address] [place], [address] Magnesiumon 11-12-2024 Magnesium [Mass/Vol] 2.2 mg/dL Normal 1.5-2.2 [facility] [place] Comment on above: Performed By: #### L 500.2500, L501.5200, L501.2300, L100.0100 ####[facility] [address] [place], [address] Magnesium measurement (mass/ volume)Ordered By: Steve Fields on 11-12-2024 Magnesium (Unsp spec) [Mass/Vol] 2.2 mg/dL 1.5-2.2 [facility] Phosphoruson 11-12-2024 Phosphate [Mass/Vol] 3.2 mg/dL Normal 2.7-4.5 [facility] Comment on above: Performed By: #### L 500.2500, L501.5200, L501.2300, L100.0100 ####[facility] [address] [place], [address] Bedside Glucoseon 11-11-2024 FINGERSTICK GLU 218 mg/dL High 74-106 [facility] Comment on above: Result Comment: SNEHA GEMENT OF PATIENT CARE PER NURSING PROTOCOL Performed By: #### L 501.080 ####[facility] [address] [place], [address] FINGERSTICK GLU 186 mg/dL High [address] [place] [address] Comment on above: Result Comment: SNEHA GEMENT OF PATIENT CARE PER NURSING PROTOCOL Performed By: #### L 501.080 ####[facility] [address] [place], [address] FINGERSTICK GLU 242 mg/dL High -106 [facility] Comment on above: Result Comment: SNEHA GEMENT OF PATIENT CARE PER NURSING PROTOCOL Performed By: #### L 501.080 ####[facility] [address] [place], [address] FINGERSTICK GLU 221 mg/dL High -106 [facility] Comment on above: Result Comment: SNEHA GEMENT OF PATIENT CARE PER NURSING PROTOCOL Performed By: #### L 501.080 ####[facility] [address] [place], [address] FINGERSTICK GLU 164 mg/dL High 74-106 [facility] Comment on above: Result Comment: SNEHA GEMENT OF PATIENT CARE PER NURSING PROTOCOL Performed By: #### L 501.080 ####[facility] [address] [place], [address] FINGERSTICK GLU 223 mg/dL High -106 [facility] Comment on above: Result Comment: SNEHA GEMENT OF PATIENT CARE PER NURSING PROTOCOL Performed By: #### L 501.080 ####[facility] [address] [place], [address] Bilirubin, totalOrdered By: Corazon Diaz on 11-11-2024 Bilirubin [Mass/Vol] 0.71 mg/dL 0.00-1.30 [facility] CBC W/Diff, Automatedon Absolute Lymph 1.57 X10 3/uL Normal 0.83-4.51 [facility] Comment on above: Performed By: #### L 100.0100, L500.4100, L501.9520, L500.4050 ####[facility] [address] [place], [address] Absolute Neut 5.7 X10 3/uL Normal 2.0-7.7 [facility] Comment on above: Performed By: #### L 100.0100, L500.4100, L501.9520, L500.4050 ####[facility] [address] [place], [address] Basophils/100 WBC (Bld) 0.4 % Normal 0-1 [facility] Comment on above: Performed By: #### L 100.0100, L500.4100, L501.9520, L500.4050 ####[facility] [address] [place], [address] Eosinophils/100 WBC (Bld) 1.3 % Normal 0-5 [facility] Comment on above: Performed By: #### L 100.0100, L500.4100, L501.9520, L500.4050 ####[facility] [address] [place], [address] Erythrocyte distribution width (RBC) [Ratio] 14.3 % Normal 11.6-14.6 [facility] Comment on above: Performed By: #### L 100.0100, L500.4100, L501.9520, L500.4050 ####[facility] [address] [place], [address] Hematocrit (Bld) [Volume fraction] 40.7 % Normal 40-54 [facility] Comment on above: Performed By: #### L 100.0100, L500.4100, L501.9520, L500.4050 ####[facility] [address] [place], [address] Hemoglobin (Bld) [Mass/Vol] 13.3 g/dL Normal 13.0-16.5 [facility] Comment on above: Performed By: #### L 100.0100, L500.4100, L501.9520, L500.4050 ####[facility] [address] [place], [address] IG% 0.300 Normal 0.0-0.9 [facility] Comment on above: Result Comment: IG% - Immature Granulocytes (promyelocytes, myelocytes andmetamyelocytes) > 1% indicates that a LEFT SHIFT is Present. Performed By: #### L 100.0100, L500.4100, L501.9520, L500.4050 ####[facility] [address] [place], [address] Lymphocytes/100 WBC (Bld) 19.7 % Normal 19-41 [facility] Comment on above: Performed By: #### L 100.0100, L500.4100, L501.9520, L500.4050 ####[facility] [address] [place], [address] MCH (RBC) [Entitic mass] 30.1 pg Normal 27.0-32.0 [facility] Comment on above: Performed By: #### L 100.0100, L500.4100, L501.9520, L500.4050 ####[facility] [address] [place], [address] MCHC (RBC) [Mass/Vol] 32.7 g/dL Normal 32-36 [facility] Comment on above: Performed By: #### L 100.0100, L500.4100, L501.9520, L500.4050 ####[facility] [address] [place], [address] MCV (RBC) [Entitic vol] 92.1 fL Normal 80-94 [facility] Comment on above: Performed By: #### L 100.0100, L500.4100, L501.9520, L500.4050 ####[facility] [address] [place], [address] Monocytes/100 WBC (Bld) 7.6 % Normal 0-10 [facility] Comment on above: Performed By: #### L 100.0100, L500.4100, L501.9520, L500.4050 ####[facility] [address] [place], [address] Neutrophils/100 WBC (Bld) 70.7 % High 47-70 [facility] Comment on above: Performed By: #### L 100.0100, L500.4100, L501.9520, L500.4050 ####[facility] [address] [place], [address] Nucleated RBC (Bld) [#/Vol] 0 10*3/uL Normal 0-5 [facility] Comment on above: Performed By: #### L 100.0100, L500.4100, L501.9520, L500.4050 ####[facility] [address] [place], [address] Platelet mean volume (Bld) [Entitic vol] 9.4 fL Normal 6.2-12.0 [facility] Comment on above: Performed By: #### L 100.0100, L500.4100, L501.9520, L500.4050 ####[facility] [address] [place], [address] Platelets (Bld) [#/Vol] 332 10*3/uL Normal 150-450 [facility] Comment on above: Performed By: #### L 100.0100, L500.4100, L501.9520, L500.4050 ####[facility] [address] [place], [address] RBC (Bld) [#/Vol] 4.42 10*6/uL Low 4.6-6.2 [facility] Comment on above: Performed By: #### L 100.0100, L500.4100, L501.9520, L500.4050 ####[facility] [address] [place], [address] RDW SD 47.8 fl High 35.1-43.9 [facility] Comment on above: Performed By: #### L 100.0100, L500.4100, L501.9520, L500.4050 ####[facility] [address] [place], [address] WBC (Bld) [#/Vol] 8.0 10*3/uL Normal 4.4-11.0 [facility] Comment on above: Performed By: #### L 100.0100, L500.4100, L501.9520, L500.4050 ####[facility] [address] [place], [address] Calculated very low density lipoprotein (VLDL) cholesterol measurementOrdered By: Corazon Diaz on 11-11-2024 Calculated very low density lipoprotein (VLDL) cholesterol measurement 17 mg/dL 5-40 [facility] Comprehensive Metabolic Prof ilon 11-11-2024 Albumin [Mass/Vol] 3.6 g/dL Normal 3.4-4.8 [facility] Comment on above: Performed By: #### L 100.0100, L500.4100, L501.9520, L500.4050 ####[facility] [address] [place], [address] Albumin/Globulin [Mass ratio] 1.2 {ratio} Normal 0.9-2.4 [facility] Comment on above: Performed By: #### L 100.0100, L500.4100, L501.9520, L500.4050 ####[facility] [address] [place], [address] ALK PHOS 124 U/L Normal 40-129 [facility] Comment on above: Performed By: #### L 100.0100, L500.4100, L501.9520, L500.4050 ####[facility] [address] [place], [address] ALT [Catalytic activity/Vol] 18 U/L Normal <=46 [facility] Comment on above: Performed By: #### L 100.0100, L500.4100, L501.9520, L500.4050 ####[facility] [address] [place], [address] AST [Catalytic activity/Vol] 29 U/L Normal <=37 [facility] Comment on above: Performed By: #### L 100.0100, L500.4100, L501.9520, L500.4050 ####[facility] [address] [place], [address] Bilirubin [Mass/Vol] 0.71 mg/dL Normal 0.00-1.30 [facility] Comment on above: Performed By: #### L 100.0100, L500.4100, L501.9520, L500.4050 ####[facility] [address] [place], [address] BUN/CRE 19.0 RATIO Normal 10-20 [facility] Comment on above: Performed By: #### L 100.0100, L500.4100, L501.9520, L500.4050 ####[facility] [address] [place], [address] Calcium [Mass/Vol] 9.0 mg/dL Normal 7.6-11.0 [facility] Comment on above: Performed By: #### L 100.0100, L500.4100, L501.9520, L500.4050 ####[facility] [address] [place], [address] Chloride [Moles/Vol] 101 mmol/L Normal 98-108 [facility] Comment on above: Performed By: #### L 100.0100, L500.4100, L501.9520, L500.4050 ####[facility] [address] [place], [address] CO2 [Moles/Vol] 20.4 mmol/L Low 21.0-32.0 [facility] Comment on above: Performed By: #### L 100.0100, L500.4100, L501.9520, L500.4050 ####[facility] [address] [place], [address] Creatinine [Mass/Vol] 1.16 mg/dL Normal 0.70-1.20 [facility] Comment on above: Performed By: #### L 100.0100, L500.4100, L501.9520, L500.4050 ####[facility] [address] [place], [address] ECRCL 75.69 ml/min Normal 50-250 [facility] Comment on above: Performed By: #### L 100.0100, L500.4100, L501.9520, L500.4050 ####[facility] [address] [place], [address] GAP 14 Normal 5-15 [facility] Comment on above: Performed By: #### L 100.0100, L500.4100, L501.9520, L500.4050 ####[facility] [address] [place], [address] GFR/1.73 sq M.predicted among non-blacks MDRD (S/P/Bld) [Vol rate/Area] 70 mL/min/{1.73_m2} Normal >60 [facility] Comment on above: Result Comment: mL/m in/1.73m2 CKD-EPI Creatinine Equation (2020) Performed By: #### L 100.0100, L500.4100, L501.9520, L500.4050 ####[facility] [address] [place], [address] Globulin (S) [Mass/Vol] 3.1 g/dL Normal 2.2-4.2 [facility] Comment on above: Performed By: #### L 100.0100, L500.4100, L501.9520, L500.4050 ####[facility] [address] [place], [address] Glucose [Mass/Vol] 159 mg/dL High 70-99 [facility] Comment on above: Performed By: #### L 100.0100, L500.4100, L501.9520, L500.4050 ####[facility] [address] [place], [address] Potassium [Moles/Vol] 3.9 mmol/L Normal 3.3-5.1 [facility] Comment on above: Performed By: #### L 100.0100, L500.4100, L501.9520, L500.4050 ####[facility] [address] [place], [address] Sodium [Moles/Vol] 136 mmol/L Normal 133-145 [facility] Comment on above: Performed By: #### L 100.0100, L500.4100, L501.9520, L500.4050 ####[facility] [address] [place], [address] T PROT 6.7 g/dL Normal 5.9-8.4 [facility] Comment on above: Performed By: #### L 100.0100, L500.4100, L501.9520, L500.4050 ####[facility] [address] [place], [address] Urea nitrogen [Mass/Vol] 22 mg/dL High 4-19 [facility] Comment on above: Performed By: #### L 100.0100, L500.4100, L501.9520, L500.4050 ####[facility] [address] [place], [address] Consultation - Cardiologyon 11-11-2024 Consultation - Cardiology Normal [facility] LDL calc ser/plasOrdered By: Corazon Diaz on 11-11-2024 Cholesterol in LDL [Mass/Vol] 3 mg/dL [facility] Lipid Profileon 11-11-2024 CHOL:HDL 1.45 Normal [facility] Comment on above: Performed By: #### L 100.0100, L500.4100, L501.9520, L500.4050 ####[facility] [address] [place], [address] Cholesterol [Mass/Vol] 64 mg/dL Normal <=200 [facility] Comment on above: Result Comment: Chol esterol level, Desirable <200 mg/dLBorderline high cholesterol 200-239 mg/dLHigh cholesterol >=240 mg/dLRecommendations of the NCEP Adult Treatment Panel for thefollowing risk-cutoff thresholds for the [place] Americanpopulation. Performed By: #### L 100.0100, L500.4100, L501.9520, L500.4050 ####[facility] [address] [place], [address] Cholesterol in HDL [Mass/Vol] 44 mg/dL Normal [facility] Comment on above: Result Comment: Audrey onal Cholesterol Education Program (NCEP) guidelines:<40 mg/dL: Low HDL-cholesterol (major risk factor for CHD)>= 60 mg/dL: High HDL-cholesterol (negative risk factor forCHD)HDL-cholesterol is affected by a number of factors, e.g.smoking, exercise, hormones, sex and age. Performed By: #### L 100.0100, L500.4100, L501.9520, L500.4050 ####[facility] [address] [place], [address] Cholesterol in LDL [Mass/Vol] 3 mg/dL Normal [facility] Comment on above: Result Comment: Bord tyhgie=410-376 mg/dL Higher Cdyv=747 mg/dL or greaterFriedwald Equation for LDL-C Performed By: #### L 100.0100, L500.4100, L501.9520, L500.4050 ####[facility] [address] [place], [address] Cholesterol in VLDL [Mass/Vol] 17 mg/dL Normal 5-40 [facility] Comment on above: Performed By: #### L 100.0100, L500.4100, L501.9520, L500.4050 ####[facility] [address] [place], [address] Triglyceride [Mass/Vol] 84 mg/dL Normal [facility] Comment on above: Result Comment: The drugs N-Acetylcysteine and Metamizole may falselydepress this assay.Normal range: <150 mg/dLBorderline High: 150-199 mg/dLHigh: 200-499 mg/dLVery High: >500 mg/dL Performed By: #### L 100.0100, L500.4100, L501.9520, L500.4050 ####[facility] [address] [place], [address] No Panel InformationOrdered By: Corazon Diaz on 11-11-2024 29 U/L <38 [facility] Serum globulin measurementOr dered By: Corazon Emily on 11-11-2024 Globulin (S) [Mass/Vol] 3.1 g/dL 2.2-4.2 [facility] Serum or plasma alanine martino otransferase (ALT) measurementOrdered By: Corazon Diaz on 11-11-2024 ALT [Catalytic activity/Vol] 18 U/L <47 [facility] Serum or plasma albumin brenda urement (mass/volume)Ordered By: Corazon Diaz on 11-11-2024 Albumin [Mass/Vol] 3.6 g/dL 3.4-4.8 [facility] Serum or plasma albumin/glob ulin mass ratioOrdered By: Corazon Diaz on 11-11-2024 Albumin/Globulin [Mass ratio] 1.2 {ratio} 0.9-2.4 [facility] Serum or plasma alkaline yulia sphatase measurementOrdered By: Corazon Diaz on 11-11-2024 ALP [Catalytic activity/Vol] 124 U/L 40-129 [facility] Serum or plasma cholesterol in HDL measurement (mass/volume)Ordered By: Corazon Diaz on 11-11-2024 Cholesterol in HDL [Mass/Vol] 44 mg/dL >40 [facility] Serum or plasma cholesterol measurement (mass/volume)Ordered By: Corazon Diaz on 11-11-2024 Cholesterol [Mass/Vol] 64 mg/dL <201 [facility] TSH DL <= 0.005 mIU/L QnOrde red By: Corazon Diaz on 11-11-2024 TSH Qn 0.807 uIU/mL 0.300-4.20 0 [facility] Thyroid Stim Hormone (TSH)on 11-11-2024 TSH 0.807 uIU/mL Normal 0.300-4.20 0 [facility] Comment on above: Performed By: #### L 100.0100, L500.4100, L501.9520, L500.4050 ####[facility] [address] [place], [place], [id number] Total proteinOrdered By: Aut james Diaz on 11-11-2024 Protein [Mass/Vol] 6.7 g/dL 5.9-8.4 [facility] 12 Lead EKGon 11-10-2024 12 Lead EKG Normal [facility] 12 Lead EKG Normal [facility] Absolute lymphocyte countOrd ered By: ED PROVIDER on 11-10-2024 Lymphocytes Auto (Unsp spec) [#/Vol] 1.74 10*3/uL 0.83-4.51 [facility] Anion gap in Serum or Plasma Ordered By: Bishop Monique on 11-10-2024 Anion gap [Moles/Vol] 12 mmol/L 5-15 [facility] Assessment of wrist artery p atency prior to arterial punctureOrdered By: Corazon Diaz on 11-10-2024 Arterial patency Wrist artery --pre arterial puncture Positive [facility] Automated lymphocyte count a s percentage of total leukocytesOrdered By: ED PROVIDER on 11-10-2024 Lymphocytes/100 WBC Auto (Unsp spec) 20.2 % 19-41 [facility] BUN/creatinine ratioOrdered By: Bishop Monique on 11-10-2024 Urea nitrogen/Creatinine [Mass ratio] 20.3 mg/mg High 10-20 [facility] Basic Metabolic Profile (BMP )on 11-10-2024 BUN/CRE 20.3 RATIO High 10-20 [facility] Comment on above: Performed By: #### L 100.0100, L501.4021, L500.2500 ####[facility] [address] [place], [address] Calcium [Mass/Vol] 8.8 mg/dL Normal 7.6-11.0 [facility] Comment on above: Performed By: #### L 100.0100, L501.4021, L500.2500 ####[facility] [address] [place], [address] Chloride [Moles/Vol] 101 mmol/L Normal 98-108 [facility] Comment on above: Performed By: #### L 100.0100, L501.4021, L500.2500 ####[facility] [address] [place], [address] CO2 [Moles/Vol] 23.1 mmol/L Normal 21.0-32.0 [facility] Comment on above: Performed By: #### L 100.0100, L501.4021, L500.2500 ####[facility] [address] [place], [address] Creatinine [Mass/Vol] 1.19 mg/dL Normal 0.70-1.20 [facility] Comment on above: Performed By: #### L 100.0100, L501.4021, L500.2500 ####[facility] [address] [place], [address] GAP 12 Normal 5-15 [facility] Comment on above: Performed By: #### L 100.0100, L501.4021, L500.2500 ####[facility] [address] [place], [address] GFR/1.73 sq M.predicted among non-blacks MDRD (S/P/Bld) [Vol rate/Area] 68 mL/min/{1.73_m2} Normal >60 [facility] Comment on above: Result Comment: mL/m in/1.73m2 CKD-EPI Creatinine Equation (2020) Performed By: #### L 100.0100, L501.4021, L500.2500 ####[facility] [address] [place], [address] Glucose [Mass/Vol] 174 mg/dL High 70-99 [facility] Comment on above: Performed By: #### L 100.0100, L501.4021, L500.2500 ####[facility] [address] [place], [address] Potassium [Moles/Vol] 3.7 mmol/L Normal 3.3-5.1 [facility] Comment on above: Performed By: #### L 100.0100, L501.4021, L500.2500 ####[facility] [address] [place], [address] Sodium [Moles/Vol] 136 mmol/L Normal 133-145 [facility] Comment on above: Performed By: #### L 100.0100, L501.4021, L500.2500 ####[facility] [address] [place], [address] Urea nitrogen [Mass/Vol] 24 mg/dL High 4-19 [facility] Comment on above: Performed By: #### L 100.0100, L501.4021, L500.2500 ####[facility] [address] [place], [address] Basophil percentageOrdered B y: ED PROVIDER on 11-10-2024 Basophils/100 WBC (Bld) 0.3 % 0-1 [facility] Bedside Glucoseon 11-10-2024 FINGERSTICK GLU 123 mg/dL High 74-106 [facility] Comment on above: Result Comment: SNEHA DUNCAN OF PATIENT CARE PER NURSING PROTOCOL Performed By: #### L 501.080 ####[facility] [address] [place], [address] Blood Gases by CPSon 025 MOY TEST Positive Normal [facility] Comment on above: Performed By: #### L 9000.0800 ####[facility] [address] [place], [address] Base excess Calc (Bld) [Moles/Vol] 0 mmol/L Normal -2 to +2 [facility] Comment on above: Performed By: #### L 9000.0800 ####[facility] [address] [place], [address] Blood Gas Type ART Normal [facility] Comment on above: Performed By: #### L 9000.0800 ####[facility] [address] [place], [address] CO2 [Moles/Vol] 25 mmol/L Normal [facility] Comment on above: Performed By: #### L 9000.0800 ####[facility] [address] [place], [address] FI02 2.0 Normal [facility] Comment on above: Performed By: #### L 9000.0800 ####[facility] [address] [place], [address] HCO3 (Bld) [Moles/Vol] 23.5 mmol/L Normal 22-26 [facility] Comment on above: Performed By: #### L 9000.0800 ####[facility] [address] [place], [address] Mode Not entered Normal [facility] Comment on above: Performed By: #### L 9000.0800 ####[facility] [address] [place], [address] O2 Delivery Dev Cannula Normal [facility] Comment on above: Performed By: #### L 9000.0800 ####[facility] [address] [place], [address] pCO2 31.3 mmHg Low 35-45 [facility] Comment on above: Performed By: #### L 9000.0800 ####[facility] [address] [place], [address] pH (Bld) 7.48 [pH] High 7.35-7.45 [facility] Comment on above: Performed By: #### L 9000.0800 ####[facility] [address] [place], [address] PO2 85 mmHG Normal 75-100 [facility] Comment on above: Performed By: #### L 9000.0800 ####[facility] [address] [place], [address] SITE L Radial Normal [facility] Comment on above: Performed By: #### L 9000.0800 ####[facility] [address] [place], [address] SO2 97 Normal 95-99 [facility] Comment on above: Performed By: #### L 9000.0800 ####[facility] [address] [place], [address] Blood base excess determinat ionOrdered By: Corazon Diaz on 11-10-2024 Base excess Calc (BldV) [Moles/Vol] 0 mmol/L -2-2 [facility] Blood bicarbonate measuremen tOrdered By: Corazon Diaz on 11-10-2024 HCO3 (Bld) [Moles/Vol] 23.5 mmol/L 22-26 [facility] CBC W/Diff, Automatedon 08-0 Absolute Lymph 1.74 X10 3/uL Normal 0.83-4.51 [facility] Comment on above: Performed By: #### L 100.0100, L501.4021, L500.2500 ####[facility] [address] [place], [address] Absolute Neut 6.0 X10 3/uL Normal 2.0-7.7 [facility] Comment on above: Performed By: #### L 100.0100, L501.4021, L500.2500 ####[facility] [address] [place], [address] Basophils/100 WBC (Bld) 0.3 % Normal 0-1 [facility] Comment on above: Performed By: #### L 100.0100, L501.4021, L500.2500 ####[facility] [address] [place], [address] Eosinophils/100 WBC (Bld) 1.5 % Normal 0-5 [facility] Comment on above: Performed By: #### L 100.0100, L501.4021, L500.2500 ####[facility] [address] [place], [address] Erythrocyte distribution width (RBC) [Ratio] 14.2 % Normal 11.6-14.6 [facility] Comment on above: Performed By: #### L 100.0100, L501.4021, L500.2500 ####[facility] [address] [place], [address] Hematocrit (Bld) [Volume fraction] 41.6 % Normal 40-54 [facility] Comment on above: Performed By: #### L 100.0100, L501.4021, L500.2500 ####[facility] [address] [place], [address] Hemoglobin (Bld) [Mass/Vol] 13.3 g/dL Normal 13.0-16.5 [facility] Comment on above: Performed By: #### L 100.0100, L501.4021, L500.2500 ####[facility] [address] [place], [address] IG% 0.300 Normal 0.0-0.9 [facility] Comment on above: Result Comment: IG% - Immature Granulocytes (promyelocytes, myelocytes andmetamyelocytes) > 1% indicates that a LEFT SHIFT is Present. Performed By: #### L 100.0100, L501.4021, L500.2500 ####[facility] [address] [place], [address] Lymphocytes/100 WBC (Bld) 20.2 % Normal 19-41 [facility] Comment on above: Performed By: #### L 100.0100, L501.4021, L500.2500 ####[facility] [address] [place], [address] MCH (RBC) [Entitic mass] 30.0 pg Normal 27.0-32.0 [facility] Comment on above: Performed By: #### L 100.0100, L501.4021, L500.2500 ####[facility] [address] [place], [address] MCHC (RBC) [Mass/Vol] 32.0 g/dL Normal 32-36 [facility] Comment on above: Performed By: #### L 100.0100, L501.4021, L500.2500 ####[facility] [address] [place], [address] MCV (RBC) [Entitic vol] 93.9 fL Normal 80-94 [facility] Comment on above: Performed By: #### L 100.0100, L501.4021, L500.2500 ####[facility] [address] [place], [address] Monocytes/100 WBC (Bld) 8.0 % Normal 0-10 [facility] Comment on above: Performed By: #### L 100.0100, L501.4021, L500.2500 ####[facility] [address] [place], [address] Neutrophils/100 WBC (Bld) 69.7 % Normal 47-70 [facility] Comment on above: Performed By: #### L 100.0100, L501.4021, L500.2500 ####[facility] [address] [place], [address] Nucleated RBC (Bld) [#/Vol] 0 10*3/uL Normal 0-5 [facility] Comment on above: Performed By: #### L 100.0100, L501.4021, L500.2500 ####[facility] [address] [place], [address] Platelet mean volume (Bld) [Entitic vol] 9.3 fL Normal 6.2-12.0 [facility] Comment on above: Performed By: #### L 100.0100, L501.4021, L500.2500 ####[facility] [address] [place], [address] Platelets (Bld) [#/Vol] 336 10*3/uL Normal 150-450 [facility] Comment on above: Performed By: #### L 100.0100, L501.4021, L500.2500 ####[facility] [address] [place], [address] RBC (Bld) [#/Vol] 4.43 10*6/uL Low 4.6-6.2 [facility] Comment on above: Performed By: #### L 100.0100, L501.4021, L500.2500 ####[facility] [address] [place], [address] RDW SD 48.4 fl High 35.1-43.9 [facility] Comment on above: Performed By: #### L 100.0100, L501.4021, L500.2500 ####[facility] [address] [place], [address] WBC (Bld) [#/Vol] 8.6 10*3/uL Normal 4.4-11.0 [facility] Comment on above: Performed By: #### L 100.0100, L501.4021, L500.2500 ####[facility] [address] [place], [address] Carbon dioxide, total [Moles /volume] in Central venous bloodOrdered By: Bishop Monique on 11-10-2024 CO2 [Moles/Vol] 23.1 mmol/L 21.0-32.0 [facility] Chest PA and Lateralon 11-10 Chest PA and Lateral Normal [facility] Chloride assayOrdered By: Elías Monique on 11-10-2024 Chloride [Moles/Vol] 101 mmol/L 98-108 [facility] Emergency Department Summary on 11-10-2024 Emergency Department Summary Normal [facility] Eosinophil percentageOrdered By: ED PROVIDER on 11-10-2024 Eosinophils/100 WBC (Bld) 1.5 % 0-5 [facility] Erythrocyte distribution wid th ratioOrdered By: ED PROVIDER on 11-10-2024 Erythrocyte distribution width (RBC) [Ratio] 14.2 % 11.6-14.6 [facility] Erythrocyte distribution wid th standard deviationOrdered By: ED PROVIDER on 11-10-2024 Erythrocyte distribution width (RBC) [Ratio] 48.4 fl High 35.1-43.9 [facility] Glomerular filtration rate ( GFR) estimation/1.73 sq m using serum, plasma, or whole bOrdered By: Bishop Monique on 11-10-2024 GFR/1.73 sq M.predicted among non-blacks MDRD (S/P/Bld) [Vol rate/Area] 68 mL/min/{1.73_m2} >60 [facility] H AND P Exam - Hospitaliston 11-10-2024 H&P Exam - Hospitalist Normal [facility] Hematocrit Auto (Bld) [Volum e fraction]Ordered By: ED PROVIDER on 11-10-2024 Hematocrit (Bld) [Volume fraction] 41.6 % 40-54 [facility] Hemoglobin measurementOrdere d By: ED PROVIDER on 11-10-2024 Hemoglobin (Bld) [Mass/Vol] 13.3 g/dL 13.0-16.5 [facility] Immature granulocytes/100 WB C Auto (Bld)Ordered By: ED PROVIDER on 11-10-2024 Immature granulocytes/100 WBC (Bld) 0.300 % 0.0-0.9 [facility] Influenza virus A and B and SARS-CoV-2 (COVID-19) and Respiratory syncytial virus RNAOrdered By: Bihsop Monique on 11-10-2024 SARS-CoV-2 (COVID-19) RNA HAYDER+probe Ql (Unsp spec) [facility] Internal Medicine Office Vis clarissa 11-10-2024 Internal Medicine Office Visit Normal [facility] L501.4021on 11-10-2024 Trop T High Sen 42 ng/L High <=22 [facility] Comment on above: Performed By: #### L 100.0100, L501.4021, L500.2500 ####[facility] [address] [place], [address] M100.678on 11-10-2024 M100.678 Pending SARS-CoV-2 (COVID 19) Negative INFLUENZA A Negative INFLUENZA B Negative RSV PCR Negative Normal [facility] Comment on above: Performed By: #### M 100.678 ####[facility] [address] [place], [address] MCV (mean corpuscular volume ) determinationOrdered By: ED PROVIDER on 11-10-2024 MCV (RBC) [Entitic vol] 93.9 fL 80-94 [facility] Magnesiumon 11-10-2024 Magnesium [Mass/Vol] 2.0 mg/dL Normal 1.5-2.2 [facility] Comment on above: Order Comment: Comme nts: may add to ED labs Performed By: #### L 501.5200 ####[facility] [address] [place], [address] Magnesium measurement (mass/ volume)Ordered By: Corazon Diaz on 11-10-2024 Magnesium (Unsp spec) [Mass/Vol] 2.0 mg/dL 1.5-2.2 [facility] Mean corpuscular hemoglobin (MCH) determinationOrdered By: ED PROVIDER on 11-10-2024 MCH (RBC) [Entitic mass] 30.0 pg 27.0-32.0 [facility] Measurement, pHOrdered By: Colton Diaz on 11-10-2024 pH (Unsp spec) 7.48 [pH] High 7.35-7.45 [facility] Monocyte percentageOrdered B y: ED PROVIDER on 11-10-2024 Monocytes/100 WBC (Bld) 8.0 % 0-10 [facility] Natriuretic peptide.B prohor parris N-Terminal [Mass/volume] in Serum or PlasmaOrdered By: Bishop Monique on 11-10-2024 Natriuretic peptide.B prohormone N-Terminal [Mass/Vol] 9141 pg/mL High <900 [facility] Neutrophil percentageOrdered By: ED PROVIDER on 11-10-2024 Neutrophils/100 WBC (Bld) 69.7 % 47-70 [facility] No Panel InformationOrdered By: Corazon Emily on 11-10-2024 ART [facility] L Radial [facility] Not entered [facility] Cannula [facility] Platelet countOrdered By: ED PROVIDER on 11-10-2024 Platelets (Bld) [#/Vol] 336 10*3/uL 150-450 [facility] Potassium measurement (mass/ volume)Ordered By: Bishop Monique on 11-10-2024 Potassium (Unsp spec) [Mass/Vol] 3.7 mmol/L 3.3-5.1 [facility] Pro- Brain NATRIURETIC PEPTI Sylvia 11-10-2024 Natriuretic peptide B (Bld) [Mass/Vol] 9141 pg/mL High <=900 [facility] Comment on above: Result Comment: Hear t Failure Unlikely: < 300 pg/mLHeart Failure Likely< 50 Years: > 450 pg/mL50-75 Years: > 900 pg/mL>75 Years: > 1800 pg/mL Performed By: #### L 503.7505 ####[facility] [address] [place], [address] RBC Auto (Bld) [#/Vol]Ordere d By: ED PROVIDER on 11-10-2024 RBC (Bld) [#/Vol] 4.43 10*6/uL Low 4.6-6.2 [facility] Serum creatinine measurement (mass/volume)Ordered By: Bishop Monique on 11-10-2024 Creatinine [Mass/Vol] 1.19 mg/dL 0.70-1.20 [facility] Serum glucose measurement (m ass/volume)Ordered By: Bishop Monique on 11-10-2024 Glucose [Mass/Vol] 174 mg/dL High 70-99 [facility] Serum or plasma calcium brenda urement (mass/volume)Ordered By: Bishop Oviedo on 11-10-2024 Calcium [Mass/Vol] 8.8 mg/dL 7.6-11.0 [facility] Serum or plasma urea nitroge n measurement (mass/volume)Ordered By: Bishop Monique on 11-10-2024 Urea nitrogen [Mass/Vol] 24 mg/dL High 4-19 [facility] Sodium levelOrdered By: Maurisio Monique on 11-10-2024 Sodium [Moles/Vol] 136 mmol/L 133-145 [facility] Total carbon dioxide measure mentOrdered By: Corazon Diaz on 11-10-2024 CO2 [Moles/Vol] 25 mmol/L [facility] Troponin T HS 2 HRon 025 Trop T High Sen 37 ng/L High <=22 [facility] Comment on above: Performed By: #### L 499.0042 ####[facility] [address] [place], [place], [address] Troponin T HS 4 HRon 025 Trop T High Sen 36 ng/L High <=22 [facility] Comment on above: Performed By: #### L 499.0043 ####[facility] [address] [place], [place], [address] Trop T High Sen Normal <=22 [facility] Comment on above: Result Comment: Stan pope via OM: Ordered Performed By: #### L 499.0043 ####[facility] [address] [place], [place], [address] Troponin T.cardiac [Mass/vol ume] in Serum or Plasma by High sensitivity methodOrdered By: Corazon Diaz on 11-10-2024 Troponin T.cardiac High sensitivity method [Mass/Vol] 36 ng/L High <22 [facility] Troponin T.cardiac [Mass/vol ume] in Serum or Plasma by High sensitivity methodOrdered By: Bishop Monique on 11-10-2024 Troponin T.cardiac High sensitivity method [Mass/Vol] 37 ng/L High <22 [facility] Troponin T.cardiac High sensitivity method [Mass/Vol] 42 ng/L High <22 [facility] White blood cell (WBC) count Ordered By: ED PROVIDER on 11-10-2024 WBC (Bld) [#/Vol] 8.6 10*3/uL 4.4-11.0 [facility] Internal Medicine Office Vis iton 11-04-2024 Internal Medicine Office Visit Normal [facility] Cardiology Visit Reporton Cardiology Visit Report Normal [facility] Absolute lymphocyte countOrd ered By: Magaly Abdi on 10-27-2024 Lymphocytes Auto (Unsp spec) [#/Vol] 0.95 10*3/uL 0.83-4.51 [facility] Anion gap in Serum or Plasma Ordered By: Bronson Tolentino on 10-27-2024 Anion gap [Moles/Vol] 13 mmol/L 5- [facility] Automated lymphocyte count a s percentage of total leukocytesOrdered By: Magaly Abdi on 10-27-2024 Lymphocytes/100 WBC Auto (Unsp spec) 14.2 % Low 19-41 [facility] BUN/creatinine ratioOrdered By: Bronson Tolentino on 10-27-2024 Urea nitrogen/Creatinine [Mass ratio] 18.1 mg/mg 10- [facility] Basic Metabolic Profile (BMP )on 10-27-2024 BUN/CRE 18.1 RATIO Normal - [facility] Comment on above: Performed By: #### L 100.0100, L500.2500, L503.6005, L500.3400, L501.2450, L501.5200 ####[facility] [address] [place], [address] Calcium [Mass/Vol] 8.8 mg/dL Normal 7.6-11.0 [facility] Comment on above: Performed By: #### L 100.0100, L500.2500, L503.6005, L500.3400, L501.2450, L501.5200 ####[facility] [address] [place], [address] Chloride [Moles/Vol] 98 mmol/L Normal 98-108 [facility] Comment on above: Performed By: #### L 100.0100, L500.2500, L503.6005, L500.3400, L501.2450, L501.5200 ####[facility] [address] [place], [address] CO2 [Moles/Vol] 20.9 mmol/L Low 21.0-32.0 [facility] Comment on above: Performed By: #### L 100.0100, L500.2500, L503.6005, L500.3400, L501.2450, L501.5200 ####[facility] [address] [place], [address] Creatinine [Mass/Vol] 0.99 mg/dL Normal 0.70-1.20 [facility] Comment on above: Performed By: #### L 100.0100, L500.2500, L503.6005, L500.3400, L501.2450, L501.5200 ####[facility] [address] [place], [address] ECRCL 87.66 ml/min Normal 50-250 [facility] Comment on above: Performed By: #### L 100.0100, L500.2500, L503.6005, L500.3400, L501.2450, L501.5200 ####[facility] [address] [place], [address] GAP 13 Normal 5-15 [facility] Comment on above: Performed By: #### L 100.0100, L500.2500, L503.6005, L500.3400, L501.2450, L501.5200 ####[facility] [address] [place], [address] GFR/1.73 sq M.predicted among non-blacks MDRD (S/P/Bld) [Vol rate/Area] 85 mL/min/{1.73_m2} Normal >60 [facility] Comment on above: Result Comment: mL/m in/1.73m2 CKD-EPI Creatinine Equation (2020) Performed By: #### L 100.0100, L500.2500, L503.6005, L500.3400, L501.2450, L501.5200 ####[facility] [address] [place], [address] Glucose [Mass/Vol] 203 mg/dL High 70-99 [facility] Comment on above: Performed By: #### L 100.0100, L500.2500, L503.6005, L500.3400, L501.2450, L501.5200 ####[facility] [address] [place], [address] Potassium [Moles/Vol] 4.2 mmol/L Normal 3.3-5.1 [facility] Comment on above: Result Comment: Hemo lysis present, Results??could be affected.?? Performed By: #### L 100.0100, L500.2500, L503.6005, L500.3400, L501.2450, L501.5200 ####[facility] [address] [place], [address] Sodium [Moles/Vol] 132 mmol/L Low 133-145 [facility] Comment on above: Performed By: #### L 100.0100, L500.2500, L503.6005, L500.3400, L501.2450, L501.5200 ####[facility] [address] [place], [address] Urea nitrogen [Mass/Vol] 18 mg/dL Normal 4-19 [facility] Comment on above: Performed By: #### L 100.0100, L500.2500, L503.6005, L500.3400, L501.2450, L501.5200 ####[facility] [address] [place], [address] Basophil percentageOrdered B y: Magaly Abdi on 10-27-2024 Basophils/100 WBC (Bld) 0.3 % 0-1 [facility] Bilirubin Test strip Ql (U)O rdered By: Bronson Tolentino on 10-27-2024 Bilirubin Ql (U) Negative Negative [facility] Bilirubin directOrdered By: Bronson Tolentino on 10-27-2024 Bilirubin.direct [Mass/Vol] 0.17 mg/dL 0.00-0.30 [facility] Bilirubin, totalOrdered By: Bronson Tolentino on 10-27-2024 Bilirubin [Mass/Vol] 0.99 mg/dL 0.00-1.30 [facility] CBC W/Diff, Automatedon 10-05 Absolute Lymph 0.95 X10 3/uL Normal 0.83-4.51 [facility] Comment on above: Order Comment: REDRA W. PREVIOUS SPECIMEN REJECTED DUE TOCLOTTED. 10/27/2427 Hermilo R Law. Performed By: #### L 100.0100 ####[facility] [address] [place], [address] Absolute Neut 5.3 X10 3/uL Normal 2.0-7.7 [facility] Comment on above: Order Comment: REDRA W. PREVIOUS SPECIMEN REJECTED DUE TOCLOTTED. 10/27/2427 Hermilo R Law. Performed By: #### L 100.0100 ####[facility] [address] [place], [address] Basophils/100 WBC (Bld) 0.3 % Normal 0-1 [facility] Comment on above: Order Comment: REDRA W. PREVIOUS SPECIMEN REJECTED DUE TOCLOTTED. 10/27/2427 Hermilo R Law. Performed By: #### L 100.0100 ####[facility] [address] [place], [address] Eosinophils/100 WBC (Bld) 2.2 % Normal 0-5 [facility] Comment on above: Order Comment: REDRA W. PREVIOUS SPECIMEN REJECTED DUE TOCLOTTED. 10/27/2427 Hermilo R Law. Performed By: #### L 100.0100 ####[facility] [address] [place], [address] Erythrocyte distribution width (RBC) [Ratio] 13.2 % Normal 11.6-14.6 [facility] Comment on above: Order Comment: REDRA W. PREVIOUS SPECIMEN REJECTED DUE TOCLOTTED. 10/27/2427 Hermilo R Law. Performed By: #### L 100.0100 ####[facility] [address] [place], [address] Hematocrit (Bld) [Volume fraction] 41.6 % Normal 40-54 [facility] Comment on above: Order Comment: REDRA W. PREVIOUS SPECIMEN REJECTED DUE TOCLOTTED. 10/27/2427 Hermilo R Law. Performed By: #### L 100.0100 ####[facility] [address] [place], [address] Hemoglobin (Bld) [Mass/Vol] 13.3 g/dL Normal 13.0-16.5 [facility] Comment on above: Order Comment: REDRA W. PREVIOUS SPECIMEN REJECTED DUE TOCLOTTED. 10/27/2427 Hermilo R Law. Performed By: #### L 100.0100 ####[facility] [address] [place], [address] IG% 0.400 Normal 0.0-0.9 [facility] Comment on above: Order Comment: REDRA W. PREVIOUS SPECIMEN REJECTED DUE TOCLOTTED. 10/27/2427 Hermilo R Law. Result Comment: IG% - Immature Granulocytes (promyelocytes, myelocytes andmetamyelocytes) > 1% indicates that a LEFT SHIFT is Present. Performed By: #### L 100.0100 ####[facility] [address] [place], [address] Lymphocytes/100 WBC (Bld) 14.2 % Low 19-41 [facility] Comment on above: Order Comment: REDRA W. PREVIOUS SPECIMEN REJECTED DUE TOCLOTTED. 10/27/2427 Hermilo R Law. Performed By: #### L 100.0100 ####[facility] [address] [place], [address] MCH (RBC) [Entitic mass] 30.2 pg Normal 27.0-32.0 [facility] Comment on above: Order Comment: REDRA W. PREVIOUS SPECIMEN REJECTED DUE TOCLOTTED. 10/27/2427 Hermilo R Law. Performed By: #### L 100.0100 ####[facility] [address] [place], [address] MCHC (RBC) [Mass/Vol] 32.0 g/dL Normal 32-36 [facility] Comment on above: Order Comment: REDRA W. PREVIOUS SPECIMEN REJECTED DUE TOCLOTTED. 10/27/2427 Hermilo R Law. Performed By: #### L 100.0100 ####[facility] [address] [place], [address] MCV (RBC) [Entitic vol] 94.5 fL High 80-94 [facility] Comment on above: Order Comment: REDRA W. PREVIOUS SPECIMEN REJECTED DUE TOCLOTTED. 10/27/2427 Hermilo R Law. Performed By: #### L 100.0100 ####[facility] [address] [place], [address] Monocytes/100 WBC (Bld) 4.0 % Normal 0-10 [facility] Comment on above: Order Comment: REDRA W. PREVIOUS SPECIMEN REJECTED DUE TOCLOTTED. 10/27/2427 Hermilo R Law. Performed By: #### L 100.0100 ####[facility] [address] [place], [address] Neutrophils/100 WBC (Bld) 78.9 % High 47-70 [facility] Comment on above: Order Comment: REDRA W. PREVIOUS SPECIMEN REJECTED DUE TOCLOTTED. 10/27/2427 Hermilo R Law. Performed By: #### L 100.0100 ####[facility] [address] [place], [address] Nucleated RBC (Bld) [#/Vol] 0 10*3/uL Normal 0-5 [facility] Comment on above: Order Comment: REDRA W. PREVIOUS SPECIMEN REJECTED DUE TOCLOTTED. 10/27/2427 Hermilo R Law. Performed By: #### L 100.0100 ####[facility] [address] [place], [address] Platelet mean volume (Bld) [Entitic vol] 9.6 fL Normal 6.2-12.0 [facility] Comment on above: Order Comment: REDRA W. PREVIOUS SPECIMEN REJECTED DUE TOCLOTTED. 10/27/2427 Hermilo R Law. Performed By: #### L 100.0100 ####[facility] [address] [place], [address] Platelets (Bld) [#/Vol] 245 10*3/uL Normal 150-450 [facility] Comment on above: Order Comment: REDRA W. PREVIOUS SPECIMEN REJECTED DUE TOCLOTTED. 10/27/2427 Hermilo R Alw. Performed By: #### L 100.0100 ####[facility] [address] [place], [address] RBC (Bld) [#/Vol] 4.40 10*6/uL Low 4.6-6.2 [facility] Comment on above: Order Comment: REDRA W. PREVIOUS SPECIMEN REJECTED DUE TOCLOTTED. 10/27/2427 Hermilo R Law. Performed By: #### L 100.0100 ####[facility] [address] [place], [address] RDW SD 46.2 fl High 35.1-43.9 [facility] Comment on above: Order Comment: REDRA W. PREVIOUS SPECIMEN REJECTED DUE TOCLOTTED. 10/27/2427 Hermilo R Law. Performed By: #### L 100.0100 ####[facility] [address] [place], [address] WBC (Bld) [#/Vol] 6.7 10*3/uL Normal 4.4-11.0 [facility] Comment on above: Order Comment: RED W. PREVIOUS SPECIMEN REJECTED DUE TOCLOTTED. 10/27/2427 Hermilo R Law. Performed By: #### L 100.0100 ####[facility] [address] [place], [address] Absolute Neut Normal 2.0-7.7 [facility] Comment on above: Result Comment: This specimen has been REJECTED due to Laboratory criteria:Clotted.[email or web address] has been notified of need of recollection.10/27/2426 Hermilo R Law Performed By: #### L 100.0100, L500.2500, L503.6005, L500.3400, L501.2450, L501.5200 ####[facility] [address] [place], [address] HCT Normal 40-54 [facility] Comment on above: Result Comment: This specimen has been REJECTED due to Laboratory criteria:Clotted.[email or web address] has been notified of need of recollection.10/27/2426 Hermilo R Law Performed By: #### L 100.0100, L500.2500, L503.6005, L500.3400, L501.2450, L501.5200 ####[facility] [address] [place], [address] HGB Normal 13.0-16.5 [facility] Comment on above: Result Comment: This specimen has been REJECTED due to Laboratory criteria:Clotted.[email or web address] has been notified of need of recollection.10/27/2426 Hermilo R Law Performed By: #### L 100.0100, L500.2500, L503.6005, L500.3400, L501.2450, L501.5200 ####[facility] [address] [place], [address] MCH Normal 27.0-32.0 [facility] Comment on above: Result Comment: This specimen has been REJECTED due to Laboratory criteria:Clotted.[email or web address] has been notified of need of recollection.10/27/2426 Hermilo R Law Performed By: #### L 100.0100, L500.2500, L503.6005, L500.3400, L501.2450, L501.5200 ####[facility] [address] [place], [address] MCHC Normal 32-36 [facility] Comment on above: Result Comment: This specimen has been REJECTED due to Laboratory criteria:Clotted.[email or web address] has been notified of need of recollection.10/27/2426 Hermilo R Law Performed By: #### L 100.0100, L500.2500, L503.6005, L500.3400, L501.2450, L501.5200 ####[facility] [address] [place], [address] MCV Normal 80-94 [facility] Comment on above: Result Comment: This specimen has been REJECTED due to Laboratory criteria:Clotted.[email or web address] has been notified of need of recollection.10/27/2426 Hermilo R Law Performed By: #### L 100.0100, L500.2500, L503.6005, L500.3400, L501.2450, L501.5200 ####[facility] [address] [place], [address] NEUT% Normal 47-70 [facility] Comment on above: Result Comment: This specimen has been REJECTED due to Laboratory criteria:Clotted.[email or web address] has been notified of need of recollection.10/27/2426 Hermilo R Law Performed By: #### L 100.0100, L500.2500, L503.6005, L500.3400, L501.2450, L501.5200 ####[facility] [address] [place], [address] PLT Normal 150-450 [facility] Comment on above: Result Comment: This specimen has been REJECTED due to Laboratory criteria:Clotted.[email or web address] has been notified of need of recollection.10/27/2426 Hermilo R Law Performed By: #### L 100.0100, L500.2500, L503.6005, L500.3400, L501.2450, L501.5200 ####[facility] [address] [place], [address] RBC Normal 4.6-6.2 [facility] Comment on above: Result Comment: This specimen has been REJECTED due to Laboratory criteria:Clotted.[email or web address] has been notified of need of recollection.10/27/2426 Hermilo R Law Performed By: #### L 100.0100, L500.2500, L503.6005, L500.3400, L501.2450, L501.5200 ####[facility] [address] [place], [address] RDW CV Normal 11.6-14.6 [facility] Comment on above: Result Comment: This specimen has been REJECTED due to Laboratory criteria:Clotted.[email or web address] has been notified of need of recollection.10/27/2426 Hermilo R Law Performed By: #### L 100.0100, L500.2500, L503.6005, L500.3400, L501.2450, L501.5200 ####[facility] [address] [place], [address] RDW SD Normal 35.1-43.9 [facility] Comment on above: Result Comment: This specimen has been REJECTED due to Laboratory criteria:Clotted.[email or web address] has been notified of need of recollection.10/27/2426 Hermilo R Law Performed By: #### L 100.0100, L500.2500, L503.6005, L500.3400, L501.2450, L501.5200 ####[facility] [address] [place], [address] WBC Normal 4.4-11.0 [facility] Comment on above: Result Comment: This specimen has been REJECTED due to Laboratory criteria:Clotted.[email or web address] has been notified of need of recollection.10/27/24 0027 Hermilo Will Law Performed By: #### L 100.0100, L500.2500, L503.6005, L500.3400, L501.2450, L501.5200 ####[facility] [address] [place], [address] CO2 (BldV) [Moles/Vol]Ordere d By: Bronson Tolentino on 10-27-2024 CO2 [Moles/Vol] 29 mmol/L 23-33 [facility] Carbon dioxide, total [Moles /volume] in Central venous bloodOrdered By: Bronson Tolentino on 10-27-2024 CO2 [Moles/Vol] 20.9 mmol/L Low 21.0-32.0 [facility] Chloride assayOrdered By: Aaliyah Tolentino on 10-27-2024 Chloride [Moles/Vol] 98 mmol/L 98-108 [facility] [place] Emergency Department Summary on 10-27-2024 Emergency Department Summary Normal [facility] Eosinophil percentageOrdered By: Magaly Abdi on 10-27-2024 Eosinophils/100 WBC (Bld) 2.2 % 0-5 [facility] Erythrocyte distribution wid th ratioOrdered By: Magaly Abdi on 10-27-2024 Erythrocyte distribution width (RBC) [Ratio] 13.2 % 11.6-14.6 [facility] Erythrocyte distribution wid th standard deviationOrdered By: Magaly Abdi on 10-27-2024 Erythrocyte distribution width (RBC) [Ratio] 46.2 fl High 35.1-43.9 [facility] Glomerular filtration rate ( GFR) estimation/1.73 sq m using serum, plasma, or whole bOrdered By: Bronson Tolentino on 10-27-2024 GFR/1.73 sq M.predicted among non-blacks MDRD (S/P/Bld) [Vol rate/Area] 85 mL/min/{1.73_m2} >60 [facility] Hematocrit Auto (Bld) [Volum e fraction]Ordered By: Magaly Abdi on 10-27-2024 Hematocrit (Bld) [Volume fraction] 41.6 % 40-54 [facility] Hemoglobin measurementOrdere d By: Magaly Abdi on 10-27-2024 Hemoglobin (Bld) [Mass/Vol] 13.3 g/dL 13.0-16.5 [facility] Immature granulocytes/100 WB C Auto (Bld)Ordered By: Magaly Abdi on 10-27-2024 Immature granulocytes/100 WBC (Bld) 0.400 % 0.0-0.9 [facility] Ketones Test strip Ql (U)Ord ered By: Bronson Tolentino on 10-27-2024 Ketones Ql (U) Negative Negative [facility] Lactic Acidon 10-27-2024 Lactate [Moles/Vol] 1.4 mmol/L Normal 0.0-2.0 [facility] Comment on above: Order Comment: Y Performed By: #### L 100.0100, L500.2500, L503.6005, L500.3400, L501.2450, L501.5200 ####[facility] [address] [place], [place], [address] Lipaseon 10-27-2024 Lipase [Catalytic activity/Vol] 37 U/L Normal 13-75 [facility] Comment on above: Result Comment: Gissell graf note:LIPASE revised reference range effective 22.New Lipase methodology. Expected to produce lower valuesthan the previous assay method.NEW Reference Range: 13 - 75 U/L Performed By: #### L 100.0100, L500.2500, L503.6005, L500.3400, L501.2450, L501.5200 ####[facility] [address] [place], [place], [address] Liver Profileon 10-27-2024 Albumin [Mass/Vol] 3.5 g/dL Normal 3.4-4.8 [facility] Comment on above: Performed By: #### L 100.0100, L500.2500, L503.6005, L500.3400, L501.2450, L501.5200 ####[facility] [address] [place], [address] ALK PHOS 97 U/L Normal 40-129 [facility] Comment on above: Performed By: #### L 100.0100, L500.2500, L503.6005, L500.3400, L501.2450, L501.5200 ####[facility] [address] [place], [address] ALT [Catalytic activity/Vol] 23 U/L Normal <=46 [facility] Comment on above: Result Comment: Hemo lysis present, Results??could be affected.?? Performed By: #### L 100.0100, L500.2500, L503.6005, L500.3400, L501.2450, L501.5200 ####[facility] [address] [place], [address] AST [Catalytic activity/Vol] 44 U/L High <=37 [facility] Comment on above: Result Comment: Hemo lysis present, Results??could be affected.?? Performed By: #### L 100.0100, L500.2500, L503.6005, L500.3400, L501.2450, L501.5200 ####[facility] [address] [place], [address] Bilirubin [Mass/Vol] 0.99 mg/dL Normal 0.00-1.30 [facility] Comment on above: Performed By: #### L 100.0100, L500.2500, L503.6005, L500.3400, L501.2450, L501.5200 ####[facility] [address] [place], [address] Bilirubin.direct [Mass/Vol] 0.17 mg/dL Normal 0.00-0.30 [facility] Comment on above: Result Comment: Hemo lysis present, Results??could be affected.?? Performed By: #### L 100.0100, L500.2500, L503.6005, L500.3400, L501.2450, L501.5200 ####[facility] [address] [place], [address] Globulin (S) [Mass/Vol] 3.1 g/dL Normal 2.2-4.2 [facility] Comment on above: Performed By: #### L 100.0100, L500.2500, L503.6005, L500.3400, L501.2450, L501.5200 ####[facility] [address] [place], [address] T PROT 6.6 g/dL Normal 5.9-8.4 [facility] Comment on above: Performed By: #### L 100.0100, L500.2500, L503.6005, L500.3400, L501.2450, L501.5200 ####[facility] [address] [place], [address] MCV (mean corpuscular volume ) determinationOrdered By: Magaly Abdi on 10-27-2024 MCV (RBC) [Entitic vol] 94.5 fL High 80-94 [facility] Magnesiumon 10-27-2024 Magnesium [Mass/Vol] 1.7 mg/dL Normal 1.5-2.2 [facility] Comment on above: Performed By: #### L 100.0100, L500.2500, L503.6005, L500.3400, L501.2450, L501.5200 ####[facility] [address] [place], [address] Magnesium measurement (mass/ volume)Ordered By: Bronson Tolentino on 10-27-2024 Magnesium (Unsp spec) [Mass/Vol] 1.7 mg/dL 1.5-2.2 [facility] Mean corpuscular hemoglobin (MCH) determinationOrdered By: Magaly Abdi on 10-27-2024 MCH (RBC) [Entitic mass] 30.2 pg 27.0-32.0 [facility] Monocyte percentageOrdered B y: Magaly Abdi on 10-27-2024 Monocytes/100 WBC (Bld) 4.0 % 0-10 [facility] Mucus LM Ql (Urine sed)Order ed By: Bronson Tolentino on 10-27-2024 Mucus Ql (Urine sed) 0 SEEN /hpf [facility] Neutrophil percentageOrdered By: Magaly Abdi on 10-27-2024 Neutrophils/100 WBC (Bld) 78.9 % High 47-70 [facility] Nitrite Test strip Ql (U)Ord ered By: Bronson Tolentino on 10-27-2024 Nitrite Ql (U) Negative Negative [facility] No Panel InformationOrdered By: Bronson Tolentino on 10-27-2024 NADINE [facility] Not entered [facility] 44 U/L High <38 [facility] Platelet countOrdered By: Debra Abdi on 10-27-2024 Platelets (Bld) [#/Vol] 245 10*3/uL 150-450 [facility] Potassium measurement (mass/ volume)Ordered By: Bronson Tolentino on 10-27-2024 Potassium (Unsp spec) [Mass/Vol] 4.2 mmol/L 3.3-5.1 [facility] Protein Test strip Ql (U)Ord ered By: Bronson Tolentino on 10-27-2024 Protein Ql (U) 30 mg/dl High Negative [facility] RBC Auto (Bld) [#/Vol]Ordere d By: Magaly Abdi on 10-27-2024 RBC (Bld) [#/Vol] 4.40 10*6/uL Low 4.6-6.2 [facility] Serum creatinine measurement (mass/volume)Ordered By: Bronson Tolentino on 10-27-2024 Creatinine [Mass/Vol] 0.99 mg/dL 0.70-1.20 [facility] Serum globulin measurementOr dered By: Bronson Tolentino on 10-27-2024 Globulin (S) [Mass/Vol] 3.1 g/dL 2.2-4.2 [facility] Serum glucose measurement (m ass/volume)Ordered By: Bronson Tolentino on 10-27-2024 Glucose [Mass/Vol] 203 mg/dL High 70-99 [facility] Serum or plasma alanine martino otransferase (ALT) measurementOrdered By: Bronson Tolentino on 10-27-2024 ALT [Catalytic activity/Vol] 23 U/L <47 [facility] Serum or plasma albumin brenda urement (mass/volume)Ordered By: Bronson Tolentino on 10-27-2024 Albumin [Mass/Vol] 3.5 g/dL 3.4-4.8 [facility] Serum or plasma alkaline yulia sphatase measurementOrdered By: Bronson Tolentino on 10-27-2024 ALP [Catalytic activity/Vol] 97 U/L 40-129 [facility] Serum or plasma calcium brenda urement (mass/volume)Ordered By: Bronson Tolentino on 10-27-2024 Calcium [Mass/Vol] 8.8 mg/dL 7.6-11.0 [facility] Serum or plasma urea nitroge n measurement (mass/volume)Ordered By: Bronson Tolentino on 10-27-2024 Urea nitrogen [Mass/Vol] 18 mg/dL 4-19 [facility] Sodium levelOrdered By: Roberto Tolentino on 10-27-2024 Sodium [Moles/Vol] 132 mmol/L Low 133-145 [facility] Squamous epithelial cells de tection in urine sediment by light microscopyOrdered By: Bronson Tolentino on 10-27-2024 Epithelial cells.squamous LM Ql (Urine sed) 0 SEEN /hpf 0-5 [facility] Total proteinOrdered By: Renato Tolentino on 10-27-2024 Protein [Mass/Vol] 6.6 g/dL 5.9-8.4 [facility] Urinalysis, Completeon 10-27 WBC 0-5 SEEN Normal 0-5 [facility] Comment on above: Order Comment: COLLE CTOR TO SPECIFY Performed By: #### L 400.0001 ####[facility] [address] [place], [address] BACTERIA 0 SEEN Normal None Seen [facility] Comment on above: Order Comment: ARINA CTOR TO SPECIFY Performed By: #### L 400.0001 ####[facility] [address] [place], [address] EPI,SQUAMOUS 0 SEEN Normal 0-5 [facility] Comment on above: Order Comment: ARINA CTOR TO SPECIFY Performed By: #### L 400.0001 ####[facility] [address] [place], [address] Mucus Ql (Urine sed) 0 SEEN Normal [facility] Comment on above: Order Comment: ARINA CTOR TO SPECIFY Performed By: #### L 400.0001 ####[facility] [address] [place], [address] RBC 0 SEEN Normal 0-5 [facility] Comment on above: Order Comment: ARINA CTOR TO SPECIFY Performed By: #### L 400.0001 ####[facility] [address] [place], [address] Urine clarityOrdered By: Renato Tolentino on 10-27-2024 Clarity (U) Clear Clear [facility] Urine color determinationOrd ered By: Bronson Tolentino on 10-27-2024 Color (U) Yellow Yellow [facility] Urine glucose detectionOrder ed By: Bronson Tolentino on 10-27-2024 Glucose Ql (U) 50 mg/dl High Normal [facility] Urine leukocyte esterase det ection by dipstickOrdered By: Bronson Tolentino on 10-27-2024 Leukocyte esterase Test strip Ql (U) 100 /ul High Negative [facility] Urine pHOrdered By: Bronson lopez on 10-27-2024 pH (U) 6.0 [pH] 5.0 - 8.0 [facility] Urine sediment bacteria coun t by microscopy (number/high power field)Ordered By: Bronson Tolentino on 10-27-2024 Bacteria LM.HPF (Urine sed) [#/Area] 0 /[HPF] None Seen [facility] Urine specific gravity measu rementOrdered By: Bronson Tolentino on 10-27-2024 Specific gravity (U) [Rel density] 1.020 1.002-1.03 0 [facility] Urine urobilinogen measureme ntOrdered By: Bronson Tolentino on 10-27-2024 Urobilinogen Ql (U) 1 mg/dl High Normal [facility] Venous Blood Gason Blood Gas Type NADINE Normal [facility] Comment on above: Performed By: #### L 9000.0810 ####[facility] [address] [place], [address] CO2 [Moles/Vol] 29 mmol/L Normal 23-33 [facility] Comment on above: Performed By: #### L 9000.0810 ####[facility] [address] [place], [address] HCO3 (Bld) [Moles/Vol] 28 mmol/L High 22-26 [facility] Comment on above: Performed By: #### L 9000.0810 ####[facility] [address] [place], [address] O2 Delivery Dev Not entered [facility] Comment on above: Performed By: #### L 9000.0810 ####[facility] [address] [place], [address] SITE Not entered [facility] Comment on above: Performed By: #### L 9000.0810 ####[facility] [address] [place], [address] VBG BE 3 mmol/L Normal -1.0-3.5 [facility] Comment on above: Performed By: #### L 9000.0810 ####[facility] [address] [place], [address] VBG pCO2 41.9 mmHg Normal 41-51 [facility] Comment on above: Performed By: #### L 9000.0810 ####[facility] [address] [place], [address] VBG pH 7.43 High 7.32-7.42 [facility] Comment on above: Performed By: #### L 9000.0810 ####[facility] [address] [place], [address] VBG PO2 30 mmHg Normal 25-40 [facility] Comment on above: Performed By: #### L 9000.0810 ####[facility] [address] [place], [address] VBG SO2 59 Normal 50-70 [facility] Comment on above: Performed By: #### L 9000.0810 ####[facility] [address] [place], [address] Blood Gas Type NADINE [facility] Comment on above: Performed By: #### L 9000.0810 ####[facility] [address] [place], [address] CO2 [Moles/Vol] 22 mmol/L Low 23-33 [facility] Comment on above: Performed By: #### L 9000.0810 ####[facility] [address] [place], [address] HCO3 (Bld) [Moles/Vol] 21 mmol/L Low 22-26 [facility] Comment on above: Performed By: #### L 9000.0810 ####[facility] [address] [place], [address] O2 Delivery Dev Not entered [facility] Comment on above: Performed By: #### L 9000.0810 ####[facility] [address] [place], [address] SITE Not entered [facility] Comment on above: Performed By: #### L 9000.0810 ####[facility] [address] [place], [address] VBG BE -1 mmol/L Normal -1.0-3.5 [facility] Comment on above: Performed By: #### L 9000.0810 ####[facility] [address] [place], [address] VBG pCO2 23.3 mmHg Low 41-51 [facility] Comment on above: Performed By: #### L 9000.0810 ####[facility] [address] [place], [address] VBG pH 7.57 High 7.32-7.42 [facility] Comment on above: Performed By: #### L 9000.0810 ####[facility] [address] [place], [address] VBG PO2 224 mmHg High 25-40 [facility] Comment on above: Performed By: #### L 9000.0810 ####[facility] [address] [place], [address] VBG SO2 100 High 50-70 [facility] Comment on above: Performed By: #### L 9000.0810 ####[facility] [address] [place], [address] Venous blood base excess asia surementOrdered By: Bronson Tolentino on 10-27-2024 Base excess Calc (BldV) [Moles/Vol] 3 mmol/L -1.0-3.5 [facility] Venous blood bicarbonate asia surementOrdered By: Bronson Tolentino on 10-27-2024 HCO3 (Bld) [Moles/Vol] 28 mmol/L High 22-26 [facility] Venous blood pH measurementO rdered By: Bronson Tolentino on 10-27-2024 pH (BldV) 7.43 [pH] High 7.32-7.42 [facility] Venous blood partial pressur e of carbon dioxide measurementOrdered By: Bronson Tolentino on 10-27-2024 CO2 (BldV) [Partial pressure] 41.9 mm[Hg] 41-51 [facility] Venous blood partial pressur e of oxygen measurementOrdered By: Bronson Tolentino on 10-27-2024 Oxygen (BldV) [Partial pressure] 30 mm[Hg] 25-40 [facility] White blood cell (WBC) count Ordered By: Magaly Abdi on 10-27-2024 WBC (Bld) [#/Vol] 6.7 10*3/uL 4.4-11.0 [facility] White blood cell countOrdere d By: Bronson Tolentino on 10-27-2024 White blood cell count 0-5 SEEN /hpf 0-5 [facility] Bedside Glucoseon 10-26-2024 FINGERSTICK GLU 194 mg/dL High 74-106 [facility] Comment on above: Result Comment: SNEHA DUNCAN OF PATIENT CARE PER NURSING PROTOCOL Performed By: #### L 501.080 ####[facility] [address] [place], [address] Chest PA and Lateralon 10-26 Chest PA and Lateral Normal [facility] By: Bronson Tolentino on 10-26-2024 Glucose [Mass/Vol] 194 mg/dL High 74-106 [facility] Absolute lymphocyte countOrd ered By: Devin Curry on 10-23-2024 Lymphocytes Auto (Unsp spec) [#/Vol] 1.48 10*3/uL 0.83-4.51 [facility] Anion gap in Serum or Plasma Ordered By: Deivn Curry on 10-23-2024 Anion gap [Moles/Vol] 12 mmol/L 5- [facility] Automated lymphocyte count a s percentage of total leukocytesOrdered By: Devin Curry on 10-23-2024 Lymphocytes/100 WBC Auto (Unsp spec) 21.6 % - [facility] BUN/creatinine ratioOrdered By: Devin Curry on 10-23-2024 Urea nitrogen/Creatinine [Mass ratio] 18.2 mg/mg - [facility] Basic Metabolic Profile (BMP )on 10-23-2024 BUN/CRE 18.2 RATIO Normal 10-20 [facility] Comment on above: Performed By: #### L 100.0100, L500.2500 ####[facility] [address] [place], [address] Calcium [Mass/Vol] 9.3 mg/dL Normal 7.6-11.0 [facility] Comment on above: Performed By: #### L 100.0100, L500.2500 ####[facility] [address] [place], [address] Chloride [Moles/Vol] 100 mmol/L Normal 98-108 [facility] [place] Comment on above: Performed By: #### L 100.0100, L500.2500 ####[facility] [address] [place], [address] CO2 [Moles/Vol] 26.0 mmol/L Normal 21.0-32.0 [facility] Comment on above: Performed By: #### L 100.0100, L500.2500 ####[facility] [address] [place], [address] Creatinine [Mass/Vol] 1.00 mg/dL Normal 0.70-1.20 [facility] Comment on above: Performed By: #### L 100.0100, L500.2500 ####[facility] [address] [place], [address] ECRCL 89.11 ml/min Normal 50-250 [facility] Comment on above: Performed By: #### L 100.0100, L500.2500 ####[facility] [address] [place], [address] GAP 12 Normal 5-15 [facility] Comment on above: Performed By: #### L 100.0100, L500.2500 ####[facility] [address] [place], [address] GFR/1.73 sq M.predicted among non-blacks MDRD (S/P/Bld) [Vol rate/Area] 84 mL/min/{1.73_m2} Normal >60 [facility] Comment on above: Result Comment: mL/m in/1.73m2 CKD-EPI Creatinine Equation (2020) Performed By: #### L 100.0100, L500.2500 ####[facility] [address] [place], [address] Glucose [Mass/Vol] 256 mg/dL High 70-99 [facility] Comment on above: Performed By: #### L 100.0100, L500.2500 ####[facility] [address] [place], [address] Potassium [Moles/Vol] 3.9 mmol/L Normal 3.3-5.1 [facility] Comment on above: Performed By: #### L 100.0100, L500.2500 ####[facility] [address] [place], [address] Sodium [Moles/Vol] 138 mmol/L Normal 133-145 [facility] Comment on above: Performed By: #### L 100.0100, L500.2500 ####[facility] [address] [place], [address] Urea nitrogen [Mass/Vol] 18 mg/dL Normal 4-19 [facility] Comment on above: Performed By: #### L 100.0100, L500.2500 ####[facility] [address] [place], [address] Basophil percentageOrdered B y: Devin Curry on 10-23-2024 Basophils/100 WBC (Bld) 0.3 % 0-1 [facility] CBC W/Diff, Automatedon 10-05 Absolute Lymph 1.48 X10 3/uL Normal 0.83-4.51 [facility] Comment on above: Performed By: #### L 100.0100, L500.2500 ####[facility] [address] [place], [address] Absolute Neut 4.7 X10 3/uL Normal 2.0-7.7 [facility] Comment on above: Performed By: #### L 100.0100, L500.2500 ####[facility] [address] [place], [address] Basophils/100 WBC (Bld) 0.3 % Normal 0-1 [facility] Comment on above: Performed By: #### L 100.0100, L500.2500 ####[facility] [address] [place], [address] Eosinophils/100 WBC (Bld) 3.4 % Normal 0-5 [facility] Comment on above: Performed By: #### L 100.0100, L500.2500 ####[facility] [address] [place], [address] Erythrocyte distribution width (RBC) [Ratio] 12.8 % Normal 11.6-14.6 [facility] Comment on above: Performed By: #### L 100.0100, L500.2500 ####[facility] [address] [place], [address] Hematocrit (Bld) [Volume fraction] 42.4 % Normal 40-54 [facility] Comment on above: Performed By: #### L 100.0100, L500.2500 ####[facility] [address] [place], [address] Hemoglobin (Bld) [Mass/Vol] 14.0 g/dL Normal 13.0-16.5 [facility] Comment on above: Performed By: #### L 100.0100, L500.2500 ####[facility] [address] [place], [address] IG% 0.100 Normal 0.0-0.9 [facility] Comment on above: Result Comment: IG% - Immature Granulocytes (promyelocytes, myelocytes andmetamyelocytes) > 1% indicates that a LEFT SHIFT is Present. Performed By: #### L 100.0100, L500.2500 ####[facility] [address] [place], [address] Lymphocytes/100 WBC (Bld) 21.6 % Normal 19-41 [facility] Comment on above: Performed By: #### L 100.0100, L500.2500 ####[facility] [address] [place], [address] MCH (RBC) [Entitic mass] 30.8 pg Normal 27.0-32.0 [facility] Comment on above: Performed By: #### L 100.0100, L500.2500 ####[facility] [address] [place], [address] MCHC (RBC) [Mass/Vol] 33.0 g/dL Normal 32-36 [facility] Comment on above: Performed By: #### L 100.0100, L500.2500 ####[facility] [address] [place], [address] MCV (RBC) [Entitic vol] 93.2 fL Normal 80-94 [facility] Comment on above: Performed By: #### L 100.0100, L500.2500 ####[facility] [address] [place], [address] Monocytes/100 WBC (Bld) 6.1 % Normal 0-10 [facility] Comment on above: Performed By: #### L 100.0100, L500.2500 ####[facility] [address] [place], [address] Neutrophils/100 WBC (Bld) 68.5 % Normal 47-70 [facility] Comment on above: Performed By: #### L 100.0100, L500.2500 ####[facility] [address] [place], [address] Nucleated RBC (Bld) [#/Vol] 0 10*3/uL Normal 0-5 [facility] Comment on above: Performed By: #### L 100.0100, L500.2500 ####[facility] [address] [place], [address] Platelet mean volume (Bld) [Entitic vol] 10.0 fL Normal 6.2-12.0 [facility] Comment on above: Performed By: #### L 100.0100, L500.2500 ####[facility] [address] [place], [address] Platelets (Bld) [#/Vol] 255 10*3/uL Normal 150-450 [facility] Comment on above: Performed By: #### L 100.0100, L500.2500 ####[facility] [address] [place], [address] RBC (Bld) [#/Vol] 4.55 10*6/uL Low 4.6-6.2 [facility] Comment on above: Performed By: #### L 100.0100, L500.2500 ####[facility] [address] [place], [address] RDW SD 43.9 fl Normal 35.1-43.9 [facility] Comment on above: Performed By: #### L 100.0100, L500.2500 ####[facility] [address] [place], [address] WBC (Bld) [#/Vol] 6.9 10*3/uL Normal 4.4-11.0 [facility] Comment on above: Performed By: #### L 100.0100, L500.2500 ####[facility] [address] [place], [address] Carbon dioxide, total [Moles /volume] in Central venous bloodOrdered By: Devin uCrry on 10-23-2024 CO2 [Moles/Vol] 26.0 mmol/L 21.0-32.0 [facility] Chloride assayOrdered By: Davian Curry on 10-23-2024 Chloride [Moles/Vol] 100 mmol/L 98-108 [facility] [place] Emergency Department Summary on 10-23-2024 Emergency Department Summary Normal [facility] Eosinophil percentageOrdered By: Devin Curry on 10-23-2024 Eosinophils/100 WBC (Bld) 3.4 % 0-5 [facility] Erythrocyte distribution wid th ratioOrdered By: Devin Curry on 10-23-2024 Erythrocyte distribution width (RBC) [Ratio] 12.8 % 11.6-14.6 [facility] Erythrocyte distribution wid th standard deviationOrdered By: Devin Curry on 10-23-2024 Erythrocyte distribution width (RBC) [Ratio] 43.9 fl 35.1-43.9 [facility] Glomerular filtration rate ( GFR) estimation/1.73 sq m using serum, plasma, or whole bOrdered By: Devin Curry on 10-23-2024 GFR/1.73 sq M.predicted among non-blacks MDRD (S/P/Bld) [Vol rate/Area] 84 mL/min/{1.73_m2} >60 [facility] Hematocrit Auto (Bld) [Volum e fraction]Ordered By: Devin Curry on 10-23-2024 Hematocrit (Bld) [Volume fraction] 42.4 % 40-54 [facility] Hemoglobin measurementOrdere d By: Devin Curry on 10-23-2024 Hemoglobin (Bld) [Mass/Vol] 14.0 g/dL 13.0-16.5 [facility] Immature granulocytes/100 WB C Auto (Bld)Ordered By: Devin Curry on 10-23-2024 Immature granulocytes/100 WBC (Bld) 0.100 % 0.0-0.9 [facility] MCV (mean corpuscular volume ) determinationOrdered By: Devin Curry on 10-23-2024 MCV (RBC) [Entitic vol] 93.2 fL 80-94 [facility] Mean corpuscular hemoglobin (MCH) determinationOrdered By: Devin Curry on 10-23-2024 MCH (RBC) [Entitic mass] 30.8 pg 27.0-32.0 [facility] Monocyte percentageOrdered B y: Devin Curry on 10-23-2024 Monocytes/100 WBC (Bld) 6.1 % 0-10 [facility] Neutrophil percentageOrdered By: Devin Curry on 10-23-2024 Neutrophils/100 WBC (Bld) 68.5 % 47-70 [facility] Platelet countOrdered By: Davian Curry on 10-23-2024 Platelets (Bld) [#/Vol] 255 10*3/uL 150-450 [facility] Potassium measurement (mass/ volume)Ordered By: Devin Curry on 10-23-2024 Potassium (Unsp spec) [Mass/Vol] 3.9 mmol/L 3.3-5.1 [facility] RBC Auto (Bld) [#/Vol]Ordere d By: Devin Curry on 10-23-2024 RBC (Bld) [#/Vol] 4.55 10*6/uL Low 4.6-6.2 [facility] Serum creatinine measurement (mass/volume)Ordered By: Devin Curry on 10-23-2024 Creatinine [Mass/Vol] 1.00 mg/dL 0.70-1.20 [facility] Serum glucose measurement (m ass/volume)Ordered By: Devin Curry on 10-23-2024 Glucose [Mass/Vol] 256 mg/dL High 70-99 [facility] Serum or plasma calcium brenda urement (mass/volume)Ordered By: Devin Curry on 10-23-2024 Calcium [Mass/Vol] 9.3 mg/dL 7.6-11.0 [facility] Serum or plasma urea nitroge n measurement (mass/volume)Ordered By: Devin Curry on 10-23-2024 Urea nitrogen [Mass/Vol] 18 mg/dL 4-19 [facility] Sodium levelOrdered By: Devin Curry on 10-23-2024 Sodium [Moles/Vol] 138 mmol/L 133-145 [facility] White blood cell (WBC) count Ordered By: Devin Curry on 10-23-2024 WBC (Bld) [#/Vol] 6.9 10*3/uL 4.4-11.0 [facility] Emergency Department Summary on 10-21-2024 Emergency Department Summary Normal [facility] Absolute lymphocyte countOrd ered By: Valentín Miller on 10-19-2024 Lymphocytes Auto (Unsp spec) [#/Vol] 1.65 10*3/uL 0.83-4.51 [facility] Anion gap in Serum or Plasma Ordered By: Valentín Miller on 10-19-2024 Anion gap [Moles/Vol] 13 mmol/L 5- [facility] Automated lymphocyte count a s percentage of total leukocytesOrdered By: Valentín Miller on 10-19-2024 Lymphocytes/100 WBC Auto (Unsp spec) 24.7 % - [facility] BUN/creatinine ratioOrdered By: Valentín Miller on 10-19-2024 Urea nitrogen/Creatinine [Mass ratio] 16.0 mg/mg 10- [facility] Basic Metabolic Profile (BMP )on 10-19-2024 BUN/CRE 16.0 RATIO Normal - [facility] Comment on above: Performed By: #### L 100.0100, L500.2500, L503.7505, L501.4021 ####[facility] [address] [place], [address] Calcium [Mass/Vol] 9.2 mg/dL Normal 7.6-11.0 [facility] Comment on above: Performed By: #### L 100.0100, L500.2500, L503.7505, L501.4021 ####[facility] [address] [place], [address] Chloride [Moles/Vol] 98 mmol/L Normal 98-108 [facility] [place] Comment on above: Performed By: #### L 100.0100, L500.2500, L503.7505, L501.4021 ####[facility] [address] [place], [address] CO2 [Moles/Vol] 22.6 mmol/L Normal 21.0-32.0 [facility] Comment on above: Performed By: #### L 100.0100, L500.2500, L503.7505, L501.4021 ####[facility] [address] [place], [address] Creatinine [Mass/Vol] 1.19 mg/dL Normal 0.70-1.20 [facility] Comment on above: Performed By: #### L 100.0100, L500.2500, L503.7505, L501.4021 ####[facility] [address] [place], [address] ECRCL 66.79 ml/min Normal 50-250 [facility] Comment on above: Performed By: #### L 100.0100, L500.2500, L503.7505, L501.4021 ####[facility] [address] [place], [address] GAP 13 Normal 5-15 [facility] Comment on above: Performed By: #### L 100.0100, L500.2500, L503.7505, L501.4021 ####[facility] [address] [place], [address] GFR/1.73 sq M.predicted among non-blacks MDRD (S/P/Bld) [Vol rate/Area] 68 mL/min/{1.73_m2} Normal >60 [facility] Comment on above: Result Comment: mL/m in/1.73m2 CKD-EPI Creatinine Equation (2020) Performed By: #### L 100.0100, L500.2500, L503.7505, L501.4021 ####[facility] [address] [place], [address] Glucose [Mass/Vol] 343 mg/dL High 70-99 [facility] Comment on above: Performed By: #### L 100.0100, L500.2500, L503.7505, L501.4021 ####[facility] [address] [place], [address] Potassium [Moles/Vol] 5.5 mmol/L High 3.3-5.1 [facility] Comment on above: Result Comment: Hemo lysis present, Results??could be affected.??Hemolysis present, Results??could be affected.?? Performed By: #### L 100.0100, L500.2500, L503.7505, L501.4021 ####[facility] [address] [place], [address] Sodium [Moles/Vol] 133 mmol/L Normal 133-145 [facility] Comment on above: Performed By: #### L 100.0100, L500.2500, L503.7505, L501.4021 ####[facility] [address] [place], [address] Urea nitrogen [Mass/Vol] 19 mg/dL Normal 4-19 [facility] Comment on above: Performed By: #### L 100.0100, L500.2500, L503.7505, L501.4021 ####[facility] [address] [place], [address] Basophil percentageOrdered B y: Valentín Miller on 10-19-2024 Basophils/100 WBC (Bld) 0.3 % 0-1 [facility] CBC W/Diff, Automatedon 10-04 Absolute Lymph 1.65 X10 3/uL Normal 0.83-4.51 [facility] Comment on above: Performed By: #### L 100.0100, L500.2500, L503.7505, L501.4021 ####[facility] [address] [place], [address] Absolute Neut 4.4 X10 3/uL Normal 2.0-7.7 [facility] Comment on above: Performed By: #### L 100.0100, L500.2500, L503.7505, L501.4021 ####[facility] [address] [place], [address] Basophils/100 WBC (Bld) 0.3 % Normal 0-1 [facility] Comment on above: Performed By: #### L 100.0100, L500.2500, L503.7505, L501.4021 ####[facility] [address] [place], [address] Eosinophils/100 WBC (Bld) 3.1 % Normal 0-5 [facility] Comment on above: Performed By: #### L 100.0100, L500.2500, L503.7505, L501.4021 ####[facility] [address] [place], [address] Erythrocyte distribution width (RBC) [Ratio] 12.6 % Normal 11.6-14.6 [facility] Comment on above: Performed By: #### L 100.0100, L500.2500, L503.7505, L501.4021 ####[facility] [address] [place], [address] Hematocrit (Bld) [Volume fraction] 40.7 % Normal 40-54 [facility] Comment on above: Performed By: #### L 100.0100, L500.2500, L503.7505, L501.4021 ####[facility] [address] [place], [address] Hemoglobin (Bld) [Mass/Vol] 13.7 g/dL Normal 13.0-16.5 [facility] Comment on above: Performed By: #### L 100.0100, L500.2500, L503.7505, L501.4021 ####[facility] [address] [place], [address] IG% 0.100 Normal 0.0-0.9 [facility] Comment on above: Result Comment: IG% - Immature Granulocytes (promyelocytes, myelocytes andmetamyelocytes) > 1% indicates that a LEFT SHIFT is Present. Performed By: #### L 100.0100, L500.2500, L503.7505, L501.4021 ####[facility] [address] [place], [address] Lymphocytes/100 WBC (Bld) 24.7 % Normal 19-41 [facility] Comment on above: Performed By: #### L 100.0100, L500.2500, L503.7505, L501.4021 ####[facility] [address] [place], [address] MCH (RBC) [Entitic mass] 31.2 pg Normal 27.0-32.0 [facility] Comment on above: Performed By: #### L 100.0100, L500.2500, L503.7505, L501.4021 ####[facility] [address] [place], [address] MCHC (RBC) [Mass/Vol] 33.7 g/dL Normal 32-36 [facility] Comment on above: Performed By: #### L 100.0100, L500.2500, L503.7505, L501.4021 ####[facility] [address] [place], [address] MCV (RBC) [Entitic vol] 92.7 fL Normal 80-94 [facility] Comment on above: Performed By: #### L 100.0100, L500.2500, L503.7505, L501.4021 ####[facility] [address] [place], [address] Monocytes/100 WBC (Bld) 6.1 % Normal 0-10 [facility] Comment on above: Performed By: #### L 100.0100, L500.2500, L503.7505, L501.4021 ####[facility] [address] [place], [address] Neutrophils/100 WBC (Bld) 65.7 % Normal 47-70 [facility] Comment on above: Performed By: #### L 100.0100, L500.2500, L503.7505, L501.4021 ####[facility] [address] [place], [address] Nucleated RBC (Bld) [#/Vol] 0 10*3/uL Normal 0-5 [facility] Comment on above: Performed By: #### L 100.0100, L500.2500, L503.7505, L501.4021 ####[facility] [address] [place], [address] Platelet mean volume (Bld) [Entitic vol] 10.0 fL Normal 6.2-12.0 [facility] Comment on above: Performed By: #### L 100.0100, L500.2500, L503.7505, L501.4021 ####[facility] [address] [place], [address] Platelets (Bld) [#/Vol] 241 10*3/uL Normal 150-450 [facility] Comment on above: Performed By: #### L 100.0100, L500.2500, L503.7505, L501.4021 ####[facility] [address] [place], [address] RBC (Bld) [#/Vol] 4.39 10*6/uL Low 4.6-6.2 [facility] Comment on above: Performed By: #### L 100.0100, L500.2500, L503.7505, L501.4021 ####[facility] [address] [place], [address] RDW SD 43.1 fl Normal 35.1-43.9 [facility] Comment on above: Performed By: #### L 100.0100, L500.2500, L503.7505, L501.4021 ####[facility] [address] [place], [address] WBC (Bld) [#/Vol] 6.7 10*3/uL Normal 4.4-11.0 [facility] Comment on above: Performed By: #### L 100.0100, L500.2500, L503.7505, L501.4021 ####[facility] [address] [place], [address] Carbon dioxide, total [Moles /volume] in Central venous bloodOrdered By: Valentín Miller on 10-19-2024 CO2 [Moles/Vol] 22.6 mmol/L 21.0-32.0 [facility] Chest 1 View (Portable)on Chest 1 View (Portable) Normal [facility] Chloride assayOrdered By: wil Miller on 10-19-2024 Chloride [Moles/Vol] 98 mmol/L 98-108 [facility] [place] Emergency Department Summary on 10-19-2024 Emergency Department Summary Normal [facility] Eosinophil percentageOrdered By: Valentín Miller on 10-19-2024 Eosinophils/100 WBC (Bld) 3.1 % 0-5 [facility] Erythrocyte distribution wid th ratioOrdered By: Valentín Miller on 10-19-2024 Erythrocyte distribution width (RBC) [Ratio] 12.6 % 11.6-14.6 [facility] Erythrocyte distribution wid th standard deviationOrdered By: Valentín Miller on 10-19-2024 Erythrocyte distribution width (RBC) [Ratio] 43.1 fl 35.1-43.9 [facility] Glomerular filtration rate ( GFR) estimation/1.73 sq m using serum, plasma, or whole bOrdered By: Valentín Miller on 10-19-2024 GFR/1.73 sq M.predicted among non-blacks MDRD (S/P/Bld) [Vol rate/Area] 68 mL/min/{1.73_m2} >60 [facility] Hematocrit Auto (Bld) [Volum e fraction]Ordered By: Valentín Miller on 10-19-2024 Hematocrit (Bld) [Volume fraction] 40.7 % 40-54 [facility] Hemoglobin measurementOrdere d By: Valentín Paul on 10-19-2024 Hemoglobin (Bld) [Mass/Vol] 13.7 g/dL 13.0-16.5 [facility] Immature granulocytes/100 WB C Auto (Bld)Ordered By: Valentín Miller on 10-19-2024 Immature granulocytes/100 WBC (Bld) 0.100 % 0.0-0.9 [facility] Influenza virus A and B and SARS-CoV-2 (COVID-19) and Respiratory syncytial virus RNAOrdered By: Valentín Miller on 10-19-2024 SARS-CoV-2 (COVID-19) RNA HAYDER+probe Ql (Unsp spec) [facility] L499.0042on 10-19-2024 Trop T High Sen 27 ng/L High <=22 [facility] Comment on above: Performed By: #### L 499.0042 ####[facility] [address] [place], [address] L499.0043on 10-19-2024 Trop T High Sen 26 ng/L High <=22 [facility] Comment on above: Performed By: #### L 499.0043 ####[facility] [address] [place], [address] L501.4021on 10-19-2024 Trop T High Sen 25 ng/L High <=22 [facility] Comment on above: Result Comment: Hemo lysis present, Results??could be affected.??Hemolysis present, Results??could be affected.?? Performed By: #### L 100.0100, L500.2500, L503.7505, L501.4021 ####[facility] [address] [place], [address] L503.7505on 10-19-2024 Natriuretic peptide B (Bld) [Mass/Vol] 4100 pg/mL High <=900 [facility] Comment on above: Result Comment: Hear t Failure Unlikely: < 300 pg/mLHeart Failure Likely< 50 Years: > 450 pg/mL50-75 Years: > 900 pg/mL>75 Years: > 1800 pg/mL Performed By: #### L 100.0100, L500.2500, L503.7505, L501.4021 ####[facility] [address] [place], [address] M100.678on 10-19-2024 M100.678 Pending SARS-CoV-2 (COVID 19) Negative INFLUENZA A Negative INFLUENZA B Negative RSV PCR Negative Normal [facility] Comment on above: Performed By: #### M 100.678 ####[facility] [address] [place], [address] MCV (mean corpuscular volume ) determinationOrdered By: Valentín Miller on 10-19-2024 MCV (RBC) [Entitic vol] 92.7 fL 80-94 [facility] Mean corpuscular hemoglobin (MCH) determinationOrdered By: Valentín Miller on 10-19-2024 MCH (RBC) [Entitic mass] 31.2 pg 27.0-32.0 [facility] Monocyte percentageOrdered B y: Valentín Miller on 10-19-2024 Monocytes/100 WBC (Bld) 6.1 % 0-10 [facility] Natriuretic peptide.B prohor parris N-Terminal [Mass/volume] in Serum or PlasmaOrdered By: Valentín Miller on 10-19-2024 Natriuretic peptide.B prohormone N-Terminal [Mass/Vol] 4100 pg/mL High <900 [facility] Neutrophil percentageOrdered By: Valentín Miller on 10-19-2024 Neutrophils/100 WBC (Bld) 65.7 % 47-70 [facility] Platelet countOrdered By: Ana Miller on 10-19-2024 Platelets (Bld) [#/Vol] 241 10*3/uL 150-450 [facility] Potassium measurement (mass/ volume)Ordered By: Valentín Miller on 10-19-2024 Potassium (Unsp spec) [Mass/Vol] 5.5 mmol/L High 3.3-5.1 [facility] RBC Auto (Bld) [#/Vol]Ordere d By: Valentín Miller on 10-19-2024 RBC (Bld) [#/Vol] 4.39 10*6/uL Low 4.6-6.2 [facility] Serum creatinine measurement (mass/volume)Ordered By: Valentín Miller on 10-19-2024 Creatinine [Mass/Vol] 1.19 mg/dL 0.70-1.20 [facility] Serum glucose measurement (m ass/volume)Ordered By: Valentín Miller on 10-19-2024 Glucose [Mass/Vol] 343 mg/dL High 70-99 [facility] Serum or plasma calcium brenda urement (mass/volume)Ordered By: Valentín Miller on 10-19-2024 Calcium [Mass/Vol] 9.2 mg/dL 7.6-11.0 [facility] Serum or plasma urea nitroge n measurement (mass/volume)Ordered By: Valentín Miller on 10-19-2024 Urea nitrogen [Mass/Vol] 19 mg/dL 4-19 [facility] Sodium levelOrdered By: Uli Miller on 10-19-2024 Sodium [Moles/Vol] 133 mmol/L 133-145 [facility] Troponin T.cardiac [Mass/vol ume] in Serum or Plasma by High sensitivity methodOrdered By: Valentín Miller on 10-19-2024 Troponin T.cardiac High sensitivity method [Mass/Vol] 26 ng/L High <22 [facility] Troponin T.cardiac High sensitivity method [Mass/Vol] 27 ng/L High <22 [facility] Troponin T.cardiac High sensitivity method [Mass/Vol] 25 ng/L High <22 [facility] White blood cell (WBC) count Ordered By: Valentín Miller on 10-19-2024 WBC (Bld) [#/Vol] 6.7 10*3/uL 4.4-11.0 [facility] Cardiology Visit Reporton Cardiology Visit Report Normal [facility] Bedside Glucoseon 09-21-2024 FINGERSTICK GLU 223 mg/dL High 74-106 [facility] Comment on above: Result Comment: SNEHA GEMENT OF PATIENT CARE PER NURSING PROTOCOL Performed By: #### L 501.080 ####[facility] [address] [place], [address] FINGERSTICK GLU 197 mg/dL High 74-106 [facility] Comment on above: Result Comment: SNEHA GEMENT OF PATIENT CARE PER NURSING PROTOCOL Performed By: #### L 501.080 ####[facility] [address] [place], [address] FINGERSTICK GLU 163 mg/dL High 74-106 [facility] Comment on above: Result Comment: SNEHA GEMENT OF PATIENT CARE PER NURSING PROTOCOL Performed By: #### L 501.080 ####[facility] [address] [place], [address] Calculated very low density lipoprotein (VLDL) cholesterol measurementOrdered By: Seth Carrington on 09-21-2024 Calculated very low density lipoprotein (VLDL) cholesterol measurement 31 mg/dL 5-40 [facility] Discharge Instructionon 09-04 Discharge Instruction Normal [facility] deOrdered By: Donna Wolff on 09-21-2024 Glucose [Mass/Vol] 223 mg/dL High 74-106 [facility] LDL calc ser/plasOrdered By: Seth Carrington on 09-21-2024 Cholesterol in LDL [Mass/Vol] 18 mg/dL [facility] Lipid Profileon 09-21-2024 CHOL:HDL 2.11 Normal [facility] Comment on above: Performed By: #### L 500.4100 ####[facility] [address] [place], [address] Cholesterol [Mass/Vol] 93 mg/dL Normal <=200 [facility] Comment on above: Result Comment: Chol esterol level, Desirable <200 mg/dLBorderline high cholesterol 200-239 mg/dLHigh cholesterol >=240 mg/dLRecommendations of the NCEP Adult Treatment Panel for thefollowing risk-cutoff thresholds for the [place] Americanpulation. Performed By: #### L 500.4100 ####[facility] [address] [place], [address] Cholesterol in HDL [Mass/Vol] 44 mg/dL Normal [facility] Comment on above: Result Comment: Audrey onal Cholesterol Education Program (NCEP) guidelines:<40 mg/dL: Low HDL-cholesterol (major risk factor for CHD)>= 60 mg/dL: High HDL-cholesterol (negative risk factor forCHD)HDL-cholesterol is affected by a number of factors, e.g.smoking, exercise, hormones, sex and age. Performed By: #### L 500.4100 ####[facility] [address] [place], [address] Cholesterol in LDL [Mass/Vol] 18 mg/dL Normal [facility] Comment on above: Result Comment: Bord cfdytw=582-650 mg/dL Higher Wnhj=646 mg/dL or greater Performed By: #### L 500.4100 ####[facility] [address] [place], [address] Cholesterol in VLDL [Mass/Vol] 31 mg/dL Normal 5-40 [facility] Comment on above: Performed By: #### L 500.4100 ####[facility] [address] [place], [address] Triglyceride [Mass/Vol] 155 mg/dL Normal [facility] Comment on above: Result Comment: The drugs N-Acetylcysteine and Metamizole may falselydepress this assay.Normal range: <150 mg/dLBorderline High: 150-199 mg/dLHigh: 200-499 mg/dLVery High: >500 mg/dL Performed By: #### L 500.4100 ####[facility] [address] [place], [address] Serum or plasma cholesterol in HDL measurement (mass/volume)Ordered By: eSth Carrington on 09-21-2024 Cholesterol in HDL [Mass/Vol] 44 mg/dL >40 [facility] Serum or plasma cholesterol measurement (mass/volume)Ordered By: Seth Carrington on 09-21-2024 Cholesterol [Mass/Vol] 93 mg/dL <201 [facility] Anion gap in Serum or Plasma Ordered By: Seth Carrington on 09-20-2024 Anion gap [Moles/Vol] 11 mmol/L - [facility] BUN/creatinine ratioOrdered By: Seth Carrington on 09-20-2024 Urea nitrogen/Creatinine [Mass ratio] 17.8 mg/mg - [facility] Basic Metabolic Profile (BMP )on 09-20-2024 BUN/CRE 17.8 RATIO Normal - [facility] Comment on above: Performed By: #### L 500.2500 ####[facility] [address] [place], [address] Calcium [Mass/Vol] 9.4 mg/dL Normal 7.6-11.0 [facility] Comment on above: Performed By: #### L 500.2500 ####[facility] [address] [place], [address] Chloride [Moles/Vol] 100 mmol/L Normal 98-108 [facility] Comment on above: Performed By: #### L 500.2500 ####[facility] [address] [place], [address] CO2 [Moles/Vol] 25.3 mmol/L Normal 21.0-32.0 [facility] Comment on above: Performed By: #### L 500.2500 ####[facility] [address] [place], [address] Creatinine [Mass/Vol] 1.11 mg/dL Normal 0.70-1.20 [facility] Comment on above: Performed By: #### L 500.2500 ####[facility] [address] [place], [address] ECRCL 71.61 ml/min Normal 50-250 [facility] Comment on above: Performed By: #### L 500.2500 ####[facility] [address] [place], [address] GAP 11 Normal 5-15 [facility] Comment on above: Performed By: #### L 500.2500 ####[facility] [address] [place], [address] GFR/1.73 sq M.predicted among non-blacks MDRD (S/P/Bld) [Vol rate/Area] 74 mL/min/{1.73_m2} Normal >60 [facility] Comment on above: Result Comment: mL/m in/1.73m2 CKD-EPI Creatinine Equation (2020) Performed By: #### L 500.2500 ####[facility] [address] [place], [address] Glucose [Mass/Vol] 148 mg/dL High 70-99 [facility] Comment on above: Performed By: #### L 500.2500 ####[facility] [address] [place], [address] Potassium [Moles/Vol] 4.0 mmol/L Normal 3.3-5.1 [facility] Comment on above: Performed By: #### L 500.2500 ####[facility] [address] [place], [address] Sodium [Moles/Vol] 136 mmol/L Normal 133-145 [facility] Comment on above: Performed By: #### L 500.2500 ####[facility] [address] [place], [address] Urea nitrogen [Mass/Vol] 20 mg/dL High 4-19 [facility] Comment on above: Performed By: #### L 500.2500 ####[facility] [address] [place], [address] Bedside Glucoseon 09-20-2024 FINGERSTICK GLU 152 mg/dL High 74-106 [facility] Comment on above: Result Comment: SNEHA GEMENT OF PATIENT CARE PER NURSING PROTOCOL Performed By: #### L 501.080 ####[facility] [address] [facility] [address] FINGERSTICK GLU 190 mg/dL High 74-106 [facility] Comment on above: Result Comment: SNEHA GEMENT OF PATIENT CARE PER NURSING PROTOCOL Performed By: #### L 501.080 ####[facility] [address] [facility] [address] FINGERSTICK GLU 246 mg/dL High 74-106 [facility] Comment on above: Result Comment: SNEHA GEMENT OF PATIENT CARE PER NURSING PROTOCOL Performed By: #### L 501.080 ####[facility] [address] [facility] [address] FINGERSTICK GLU 154 mg/dL High 74-106 [facility] Comment on above: Result Comment: SNEHA GEMENT OF PATIENT CARE PER NURSING PROTOCOL Performed By: #### L 501.080 ####[facility] [address] [facility] [address] Carbon dioxide, total [Moles /volume] in Central venous bloodOrdered By: Seth Carrington on 09-20-2024 CO2 [Moles/Vol] 25.3 mmol/L 21.0-32.0 [facility] Chloride assayOrdered By: Carol Carrington on 09-20-2024 Chloride [Moles/Vol] 100 mmol/L 98-108 [facility] Electrocardiogram reportOrde red By: Calos Quinn on 09-20-2024 EKG study [facility] Work Phone: Glomerular filtration rate ( GFR) estimation/1.73 sq m using serum, plasma, or whole bOrdered By: Seth Carrington on 09-20-2024 GFR/1.73 sq M.predicted among non-blacks MDRD (S/P/Bld) [Vol rate/Area] 74 mL/min/{1.73_m2} >60 [facility] Potassium measurement (mass/ volume)Ordered By: Seth Carrington on 09-20-2024 Potassium (Unsp spec) [Mass/Vol] 4.0 mmol/L 3.3-5.1 [facility] Serum creatinine measurement (mass/volume)Ordered By: Seth Carrington on 09-20-2024 Creatinine [Mass/Vol] 1.11 mg/dL 0.70-1.20 [facility] Serum glucose measurement (m ass/volume)Ordered By: Seth Carrington on 09-20-2024 Glucose [Mass/Vol] 148 mg/dL High 70-99 [facility] Serum or plasma calcium brenda urement (mass/volume)Ordered By: Seth Carrington on 09-20-2024 Calcium [Mass/Vol] 9.4 mg/dL 7.6-11.0 [facility] Serum or plasma urea nitroge n measurement (mass/volume)Ordered By: Seth Carrington on 09-20-2024 Urea nitrogen [Mass/Vol] 20 mg/dL High 4-19 [facility] Sodium levelOrdered By: Seth Carrington on 09-20-2024 Sodium [Moles/Vol] 136 mmol/L 133-145 [facility] Basic Metabolic Profile (BMP )on 09-19-2024 BUN/CRE 18.5 RATIO Normal 10-20 [facility] Comment on above: Performed By: #### L 500.2500, L100.0500 ####[facility] [address] [place], [address] Calcium [Mass/Vol] 9.4 mg/dL Normal 7.6-11.0 [facility] Comment on above: Performed By: #### L 500.2500, L100.0500 ####[facility] [address] [place], [address] Chloride [Moles/Vol] 99 mmol/L Normal 98-108 [facility] Comment on above: Performed By: #### L 500.2500, L100.0500 ####[facility] [address] [place], [address] CO2 [Moles/Vol] 24.3 mmol/L Normal 21.0-32.0 [facility] Comment on above: Performed By: #### L 500.2500, L100.0500 ####[facility] [address] [place], [address] Creatinine [Mass/Vol] 1.13 mg/dL Normal 0.70-1.20 [facility] Comment on above: Performed By: #### L 500.2500, L100.0500 ####[facility] [address] [place], [address] ECRCL 70.34 ml/min Normal 50-250 [facility] Comment on above: Performed By: #### L 500.2500, L100.0500 ####[facility] [address] [place], [address] GAP 13 Normal 5-15 [facility] Comment on above: Performed By: #### L 500.2500, L100.0500 ####[facility] [address] [place], [address] GFR/1.73 sq M.predicted among non-blacks MDRD (S/P/Bld) [Vol rate/Area] 73 mL/min/{1.73_m2} Normal >60 [facility] Comment on above: Result Comment: mL/m in/1.73m2 CKD-EPI Creatinine Equation (2020) Performed By: #### L 500.2500, L100.0500 ####[facility] [address] [place], [address] Glucose [Mass/Vol] 187 mg/dL High 70-99 [facility] Comment on above: Performed By: #### L 500.2500, L100.0500 ####[facility] [address] [place], [address] Potassium [Moles/Vol] 3.7 mmol/L Normal 3.3-5.1 [facility] Comment on above: Performed By: #### L 500.2500, L100.0500 ####[facility] [address] [place], [address] Sodium [Moles/Vol] 136 mmol/L Normal 133-145 [facility] Comment on above: Performed By: #### L 500.2500, L100.0500 ####[facility] [address] [place], [address] Urea nitrogen [Mass/Vol] 21 mg/dL High 4-19 [facility] Comment on above: Performed By: #### L 500.2500, L100.0500 ####[facility] [address] [place], [address] Bedside Glucoseon 09-19-2024 FINGERSTICK GLU 198 mg/dL High 74-106 [facility] Comment on above: Result Comment: SNEHA GEMENT OF PATIENT CARE PER NURSING PROTOCOL Performed By: #### L 501.080 ####[facility] [address] [place], [address] FINGERSTICK GLU 163 mg/dL High 74-106 [facility] Comment on above: Result Comment: SNEHA GEMENT OF PATIENT CARE PER NURSING PROTOCOL Performed By: #### L 501.080 ####[facility] [address] [place], [address] FINGERSTICK GLU 170 mg/dL High 74-106 [facility] Comment on above: Result Comment: SNEHA GEMENT OF PATIENT CARE PER NURSING PROTOCOL Performed By: #### L 501.080 ####[facility] [address] [place], [address] FINGERSTICK GLU 193 mg/dL High 74-106 [facility] Comment on above: Result Comment: SNEHA GEMENT OF PATIENT CARE PER NURSING PROTOCOL Performed By: #### L 501.080 ####[facility] [address] [place], [address] CBC-Complete Blood Cnt No Guera chou 09-19-2024 Erythrocyte distribution width (RBC) [Ratio] 12.5 % Normal 11.6-14.6 [facility] Comment on above: Performed By: #### L 500.2500, L100.0500 ####[facility] [address] [place], [address] Hematocrit (Bld) [Volume fraction] 44.2 % Normal 40-54 [facility] Comment on above: Performed By: #### L 500.2500, L100.0500 ####[facility] [address] [place], [address] Hemoglobin (Bld) [Mass/Vol] 14.8 g/dL Normal 13.0-16.5 [facility] Comment on above: Performed By: #### L 500.2500, L100.0500 ####[facility] [address] [place], [address] MCH (RBC) [Entitic mass] 31.1 pg Normal 27.0-32.0 [facility] Comment on above: Performed By: #### L 500.2500, L100.0500 ####[facility] [address] [place], [address] MCHC (RBC) [Mass/Vol] 33.5 g/dL Normal 32-36 [facility] Comment on above: Performed By: #### L 500.2500, L100.0500 ####[facility] [address] [place], [address] MCV (RBC) [Entitic vol] 92.9 fL Normal 80-94 [facility] Comment on above: Performed By: #### L 500.2500, L100.0500 ####[facility] [address] [place], [address] Platelet mean volume (Bld) [Entitic vol] 9.5 fL Normal 6.2-12.0 [facility] Comment on above: Performed By: #### L 500.2500, L100.0500 ####[facility] [address] [place], [address] Platelets (Bld) [#/Vol] 297 10*3/uL Normal 150-450 [facility] Comment on above: Performed By: #### L 500.2500, L100.0500 ####[facility] [address] [place], [address] RBC (Bld) [#/Vol] 4.76 10*6/uL Normal 4.6-6.2 [facility] Comment on above: Performed By: #### L 500.2500, L100.0500 ####[facility] [address] [place], [address] RDW SD 43.1 fl Normal 35.1-43.9 [facility] Comment on above: Performed By: #### L 500.2500, L100.0500 ####[facility] [address] [place], [address] WBC (Bld) [#/Vol] 7.7 10*3/uL Normal 4.4-11.0 [facility] Comment on above: Performed By: #### L 500.2500, L100.0500 ####[facility] [address] [place], [address] Erythrocyte distribution wid th ratioOrdered By: Clinton Soares on 09-19-2024 Erythrocyte distribution width (RBC) [Ratio] 12.5 % 11.6-14.6 [facility] Erythrocyte distribution wid th standard deviationOrdered By: Clinton Soares on 09-19-2024 Erythrocyte distribution width (RBC) [Ratio] 43.1 fl 35.1-43.9 [facility] Hematocrit Auto (Bld) [Volum e fraction]Ordered By: Clinton Soares on 09-19-2024 Hematocrit (Bld) [Volume fraction] 44.2 % 40-54 [facility] Hemoglobin measurementOrdere d By: Clinton Soares on 09-19-2024 Hemoglobin (Bld) [Mass/Vol] 14.8 g/dL 13.0-16.5 [facility] Limited echocardiogram repor tOrdered By: Calos Quinn on 09-19-2024 Study report [facility] Work Phone: MCV (mean corpuscular volume ) determinationOrdered By: Clinton Soares on 09-19-2024 MCV (RBC) [Entitic vol] 92.9 fL 80-94 [facility] Mean corpuscular hemoglobin (MCH) determinationOrdered By: Clinton Soares on 09-19-2024 MCH (RBC) [Entitic mass] 31.1 pg 27.0-32.0 [facility] Platelet countOrdered By: Evelin Soares on 09-19-2024 Platelets (Bld) [#/Vol] 297 10*3/uL 150-450 [facility] RBC Auto (Bld) [#/Vol]Ordere d By: Clinton Soares on 09-19-2024 RBC (Bld) [#/Vol] 4.76 10*6/uL 4.6-6.2 [facility] White blood cell (WBC) count Ordered By: Clinton Soares on 09-19-2024 WBC (Bld) [#/Vol] 7.7 10*3/uL 4.4-11.0 [facility] 12 Lead EKGon 09-18-2024 12 Lead EKG Normal [facility] Absolute lymphocyte countOrd ered By: Saúl Aguilar on 09-18-2024 Lymphocytes Auto (Unsp spec) [#/Vol] 2.05 10*3/uL 0.83-4.51 [facility] Anion gap in Serum or Plasma Ordered By: Saúl Aguilar on 09-18-2024 Anion gap [Moles/Vol] 12 mmol/L -15 [facility] Automated lymphocyte count a s percentage of total leukocytesOrdered By: Saúl Aguilar on 09-18-2024 Lymphocytes/100 WBC Auto (Unsp spec) 27.0 % 19-41 [facility] BUN/creatinine ratioOrdered By: Saúl Aguilar on 09-18-2024 Urea nitrogen/Creatinine [Mass ratio] 16.5 mg/mg 10-20 [facility] Basic Metabolic Profile (BMP )on 09-18-2024 BUN/CRE 16.5 RATIO Normal - [facility] Comment on above: Performed By: #### L 500.2500, L503.7505 ####[facility] [address] [place], [address] Calcium [Mass/Vol] 9.3 mg/dL Normal 7.6-11.0 [facility] Comment on above: Performed By: #### L 500.2500, L503.7505 ####[facility] [address] [place], [address] Chloride [Moles/Vol] 105 mmol/L Normal 98-108 [facility] Comment on above: Performed By: #### L 500.2500, L503.7505 ####[facility] [address] [place], [address] CO2 [Moles/Vol] 22.3 mmol/L Normal 21.0-32.0 [facility] Comment on above: Performed By: #### L 500.2500, L503.7505 ####[facility] [address] [place], [address] Creatinine [Mass/Vol] 1.01 mg/dL Normal 0.70-1.20 [facility] Comment on above: Performed By: #### L 500.2500, L503.7505 ####[facility] [address] [place], [address] GAP 12 Normal 5-15 [facility] Comment on above: Performed By: #### L 500.2500, L503.7505 ####[facility] [address] [place], [address] GFR/1.73 sq M.predicted among non-blacks MDRD (S/P/Bld) [Vol rate/Area] 83 mL/min/{1.73_m2} Normal >60 [facility] Comment on above: Result Comment: mL/m in/1.73m2 CKD-EPI Creatinine Equation (2020) Performed By: #### L 500.2500, L503.7505 ####[facility] [address] [place], [address] Glucose [Mass/Vol] 184 mg/dL High 70-99 [facility] Comment on above: Performed By: #### L 500.2500, L503.7505 ####[facility] [address] [place], [address] Potassium [Moles/Vol] 5.0 mmol/L Normal 3.3-5.1 [facility] Comment on above: Result Comment: Hemo lysis present, Results??could be affected.?? Performed By: #### L 500.2500, L503.7505 ####[facility] [address] [place], [address] Sodium [Moles/Vol] 139 mmol/L Normal 133-145 [facility] Comment on above: Performed By: #### L 500.2500, L503.7505 ####[facility] [address] [place], [address] Urea nitrogen [Mass/Vol] 17 mg/dL Normal 4-19 [facility] Comment on above: Performed By: #### L 500.2500, L503.7505 ####[facility] [address] [place], [address] Basophil percentageOrdered B y: Saúl Aguilar on 09-18-2024 Basophils/100 WBC (Bld) 0.4 % 0-1 [facility] Bedside Glucoseon 09-18-2024 FINGERSTICK GLU 327 mg/dL High 74-106 [facility] Comment on above: Result Comment: SNEHA DUNCAN OF PATIENT CARE PER NURSING PROTOCOL Performed By: #### L 501.080 ####[facility] [address] [place], [address] FINGERSTICK GLU 207 mg/dL High 74-106 [facility] Comment on above: Result Comment: SNEHA DUNCAN OF PATIENT CARE PER NURSING PROTOCOL Performed By: #### L 501.080 ####[facility] [address] [place], [address] CBC W/Diff, Automatedon 06-1 -2024 Absolute Lymph 2.05 X10 3/uL Normal 0.83-4.51 [facility] Comment on above: Performed By: #### L 501.4021, L100.0100 ####[facility] [address] [place], [address] Absolute Neut 4.7 X10 3/uL Normal 2.0-7.7 [facility] Comment on above: Performed By: #### L 501.4021, L100.0100 ####[facility] [address] [place], [address] Basophils/100 WBC (Bld) 0.4 % Normal 0-1 [facility] Comment on above: Performed By: #### L 501.4021, L100.0100 ####[facility] [address] [place], [address] Eosinophils/100 WBC (Bld) 3.7 % Normal 0-5 [facility] Comment on above: Performed By: #### L 501.4021, L100.0100 ####[facility] [address] [place], [address] Erythrocyte distribution width (RBC) [Ratio] 12.9 % Normal 11.6-14.6 [facility] Comment on above: Performed By: #### L 501.4021, L100.0100 ####[facility] [address] [place], [address] Hematocrit (Bld) [Volume fraction] 44.4 % Normal 40-54 [facility] Comment on above: Performed By: #### L 501.4021, L100.0100 ####[facility] [address] [place], [address] Hemoglobin (Bld) [Mass/Vol] 14.8 g/dL Normal 13.0-16.5 [facility] Comment on above: Performed By: #### L 501.4021, L100.0100 ####[facility] [address] [place], [address] IG% 0.300 Normal 0.0-0.9 [facility] Comment on above: Result Comment: IG% - Immature Granulocytes (promyelocytes, myelocytes andmetamyelocytes) > 1% indicates that a LEFT SHIFT is Present. Performed By: #### L 501.4021, L100.0100 ####[facility] [address] [place], [address] Lymphocytes/100 WBC (Bld) 27.0 % Normal 19-41 [facility] Comment on above: Performed By: #### L 501.4021, L100.0100 ####[facility] [address] [place], [address] MCH (RBC) [Entitic mass] 31.9 pg Normal 27.0-32.0 [facility] Comment on above: Performed By: #### L 501.4021, L100.0100 ####[facility] [address] [place], [address] MCHC (RBC) [Mass/Vol] 33.3 g/dL Normal 32-36 [facility] Comment on above: Performed By: #### L 501.4021, L100.0100 ####[facility] [address] [place], [address] MCV (RBC) [Entitic vol] 95.7 fL High 80-94 [facility] Comment on above: Performed By: #### L 501.4021, L100.0100 ####[facility] [address] [place], [address] Monocytes/100 WBC (Bld) 6.7 % Normal 0-10 [facility] Comment on above: Performed By: #### L 501.4021, L100.0100 ####[facility] [address] [place], [address] Neutrophils/100 WBC (Bld) 61.9 % Normal 47-70 [facility] Comment on above: Performed By: #### L 501.4021, L100.0100 ####[facility] [address] [place], [address] Nucleated RBC (Bld) [#/Vol] 0 10*3/uL Normal 0-5 [facility] Comment on above: Performed By: #### L 501.4021, L100.0100 ####[facility] [address] [place], [address] Platelet mean volume (Bld) [Entitic vol] 9.5 fL Normal 6.2-12.0 [facility] Comment on above: Performed By: #### L 501.4021, L100.0100 ####[facility] [address] [place], [address] Platelets (Bld) [#/Vol] 276 10*3/uL Normal 150-450 [facility] Comment on above: Performed By: #### L 501.4021, L100.0100 ####[facility] [address] [place], [address] RBC (Bld) [#/Vol] 4.64 10*6/uL Normal 4.6-6.2 [facility] Comment on above: Performed By: #### L 501.4021, L100.0100 ####[facility] [address] [place], [address] RDW SD 45.1 fl High 35.1-43.9 [facility] Comment on above: Performed By: #### L 501.4021, L100.0100 ####[facility] [address] [place], [address] WBC (Bld) [#/Vol] 7.6 10*3/uL Normal 4.4-11.0 [facility] Comment on above: Performed By: #### L 501.4021, L100.0100 ####[facility] [address] [place], [address] Carbon dioxide, total [Moles /volume] in Central venous bloodOrdered By: Saúl Aguilar on 09-18-2024 CO2 [Moles/Vol] 22.3 mmol/L 21.0-32.0 [facility] Chest 1 View (Portable)on Chest 1 View (Portable) Normal [facility] Chloride assayOrdered By: Chacho Aguilar on 09-18-2024 Chloride [Moles/Vol] 105 mmol/L 98-108 [facility] Echo, Limited Studyon 2024 Echo, Limited Study Normal [facility] Emergency Department Summary on 09-18-2024 Emergency Department Summary Normal [facility] Eosinophil percentageOrdered By: Saúl Aguilar on 09-18-2024 Eosinophils/100 WBC (Bld) 3.7 % 0-5 [facility] Erythrocyte distribution wid th ratioOrdered By: Saúl Aguilar on 09-18-2024 Erythrocyte distribution width (RBC) [Ratio] 12.9 % 11.6-14.6 [facility] Erythrocyte distribution wid th standard deviationOrdered By: Saúl Aguilar on 09-18-2024 Erythrocyte distribution width (RBC) [Ratio] 45.1 fl High 35.1-43.9 [facility] Glomerular filtration rate ( GFR) estimation/1.73 sq m using serum, plasma, or whole bOrdered By: Saúl Aguilar on 09-18-2024 GFR/1.73 sq M.predicted among non-blacks MDRD (S/P/Bld) [Vol rate/Area] 83 mL/min/{1.73_m2} >60 [facility] H AND P Exam - Hospitaliston 09-18-2024 H&P Exam - Hospitalist Normal [facility] Hematocrit Auto (Bld) [Volum e fraction]Ordered By: Saúl Aguilar on 09-18-2024 Hematocrit (Bld) [Volume fraction] 44.4 % 40-54 [facility] Hemoglobin A1con 09-18-2024 HbA1c (Bld) [Mass fraction] 9.9 % High <=5.6 [facility] Comment on above: Result Comment: Norm al < 5.7 % Prediabetic 5.7 - 6.4 % Diabetic >or= 6.5 % Please note range changes. Performed By: #### L 501.9985 ####[facility] [address] [place], [place], [id number] Hemoglobin A1c percentageOrd ered By: Clinton Soares on 09-18-2024 HbA1c (Bld) [Mass fraction] 9.9 % High <5.7 [facility] Hemoglobin measurementOrdere d By: Saúl Aguilar on 09-18-2024 Hemoglobin (Bld) [Mass/Vol] 14.8 g/dL 13.0-16.5 [facility] Immature granulocytes/100 WB C Auto (Bld)Ordered By: Saúl Aguilar on 09-18-2024 Immature granulocytes/100 WBC (Bld) 0.300 % 0.0-0.9 [facility] L499.0042on 09-18-2024 Trop T High Sen 62 ng/L Invalid Interpretation Code <=22 [facility] Comment on above: Result Comment: Crit ical Result(s) Called at: 09/18/2024-01:23 by: Nesha to Dolly Rodriguez.??Results read back by same. Performed By: #### L 499.0042 ####[facility] [address] [place], [place], [address] L499.0043on 09-18-2024 Trop T High Sen 64 ng/L Invalid Interpretation Code <=22 [facility] Comment on above: Result Comment: Crit ical Result(s) Called at: 09/18/2024:33 by: Nesha Haider.??Results read back by same. Performed By: #### L 499.0043 ####[facility] [address] [place], [address] L501.4021on 09-18-2024 Trop T High Sen 64 ng/L Invalid Interpretation Code <=22 [facility] Comment on above: Result Comment: Hemo lysis present, Results??could be affected.??Critical Result(s) Called at: 09/18/2024-:33 by: Nesha to Dolly Rodriguez.??Results read back by same. Performed By: #### L 501.4021, L100.0100 ####[facility] [address] [place], [address] L503.7500on 09-18-2024 Natriuretic peptide B (Bld) [Mass/Vol] 2552 pg/mL High <=900 [facility] Comment on above: Result Comment: Hear t Failure Unlikely: < 300 pg/mLHeart Failure Likely< 50 Years: > 450 pg/mL50-75 Years: > 900 pg/mL>75 Years: > 1800 pg/mL Performed By: #### L 500.2500, L503.7505 ####[facility] [address] [place], [place], [address] MCV (mean corpuscular volume ) determinationOrdered By: Saúl Aguilar on 09-18-2024 MCV (RBC) [Entitic vol] 95.7 fL High 80-94 [facility] Mean corpuscular hemoglobin (MCH) determinationOrdered By: Saúl Aguilar on 09-18-2024 MCH (RBC) [Entitic mass] 31.9 pg 27.0-32.0 [facility] Monocyte percentageOrdered B y: Saúl Aguilar on 09-18-2024 Monocytes/100 WBC (Bld) 6.7 % 0-10 [facility] Natriuretic peptide.B prohor parris N-Terminal [Mass/volume] in Serum or PlasmaOrdered By: Saúl Aguilar on 09-18-2024 Natriuretic peptide.B prohormone N-Terminal [Mass/Vol] 2552 pg/mL High <900 [facility] Neutrophil percentageOrdered By: Saúl Aguilar on 09-18-2024 Neutrophils/100 WBC (Bld) 61.9 % 47-70 [facility] Platelet countOrdered By: Chacho Aguilar on 09-18-2024 Platelets (Bld) [#/Vol] 276 10*3/uL 150-450 [facility] Potassium measurement (mass/ volume)Ordered By: Saúl Aguilar on 09-18-2024 Potassium (Unsp spec) [Mass/Vol] 5.0 mmol/L 3.3-5.1 [facility] RBC Auto (Bld) [#/Vol]Ordere d By: Saúl Aguilar on 09-18-2024 RBC (Bld) [#/Vol] 4.64 10*6/uL 4.6-6.2 [facility] Serum creatinine measurement (mass/volume)Ordered By: Saúl Aguilar on 09-18-2024 Creatinine [Mass/Vol] 1.01 mg/dL 0.70-1.20 [facility] Serum glucose measurement (m ass/volume)Ordered By: Saúl Aguilar on 09-18-2024 Glucose [Mass/Vol] 184 mg/dL High 70-99 [facility] Serum or plasma calcium brenda urement (mass/volume)Ordered By: Saúl Aguilar on 09-18-2024 Calcium [Mass/Vol] 9.3 mg/dL 7.6-11.0 [facility] Serum or plasma urea nitroge n measurement (mass/volume)Ordered By: Saúl Aguilar on 09-18-2024 Urea nitrogen [Mass/Vol] 17 mg/dL 4-19 [facility] Sodium levelOrdered By: Saúl Aguilar on 09-18-2024 Sodium [Moles/Vol] 139 mmol/L 133-145 [facility] Troponin T.cardiac [Mass/vol ume] in Serum or Plasma by High sensitivity methodOrdered By: Saúl Aguilar on 09-18-2024 Troponin T.cardiac High sensitivity method [Mass/Vol] 64 ng/L High <22 [facility] Troponin T.cardiac High sensitivity method [Mass/Vol] 62 ng/L High <22 [facility] Troponin T.cardiac High sensitivity method [Mass/Vol] 64 ng/L High <22 [facility] White blood cell (WBC) count Ordered By: Saúl Aguilar on 09-18-2024 WBC (Bld) [#/Vol] 7.6 10*3/uL 4.4-11.0 [facility] Arterial study reportOrdered By: Saúl Flowers on 09-08-2024 Noninvasive arteriosclerosis study report [facility] Work Phone: Carotid Duplex Ultrasoundon 09-08-2024 Carotid Duplex Ultrasound Normal [facility] Duplex ultrasound of carotid artery reportOrdered By: Saúl Flowers on 09-08-2024 Study report [facility] Work Phone: Lower Ext Art Exam w/o Exerc zachary 09-08-2024 Lower Ext Art Exam w/o Exercis Normal [facility] Internal Medicine Office Vis iton 08-02-2024 Internal Medicine Office Visit Normal [facility] No Panel InformationOrdered By: Xiang Rogers on 08-02-2024 12.5 % High 4.2-6.3 [facility] L499.0043on 07-30-2024 Trop T High Sen Normal <=22 [facility] Comment on above: Result Comment: Canc elled via OM: Order cancelled - Patient discharged Performed By: #### L 499.0043 ####[facility] [address] [place], [address] Absolute lymphocyte countOrd ered By: ED PROVIDER on 07-29-2024 Lymphocytes Auto (Unsp spec) [#/Vol] 2.79 10*3/uL 0.83-4.51 [facility] Anion gap in Serum or Plasma Ordered By: Lawson Castellon on 07-29-2024 Anion gap [Moles/Vol] 16 mmol/L High 5-15 [facility] Automated lymphocyte count a s percentage of total leukocytesOrdered By: ED PROVIDER on 07-29-2024 Lymphocytes/100 WBC Auto (Unsp spec) 37.4 % 19-41 [facility] BUN/creatinine ratioOrdered By: Lawson Castellon on 07-29-2024 Urea nitrogen/Creatinine [Mass ratio] 20.7 mg/mg High 01-23 [facility] Basic Metabolic Profile (BMP )on 07-29-2024 BUN/CRE 20.7 RATIO High 01-23 [facility] Comment on above: Performed By: #### L 500.2500, L100.0100, L501.4021 ####[facility] [address] [place], [address] Calcium [Mass/Vol] 9.3 mg/dL Normal 7.6-11.0 [facility] Comment on above: Performed By: #### L 500.2500, L100.0100, L501.4021 ####[facility] [address] [place], [address] Chloride [Moles/Vol] 99 mmol/L Normal 98-108 [facility] Comment on above: Performed By: #### L 500.2500, L100.0100, L501.4021 ####[facility] [address] [place], [address] CO2 [Moles/Vol] 19.8 mmol/L Low 21.0-32.0 [facility] Comment on above: Performed By: #### L 500.2500, L100.0100, L501.4021 ####[facility] [address] [place], [address] Creatinine [Mass/Vol] 1.11 mg/dL Normal 0.70-1.20 [facility] Comment on above: Performed By: #### L 500.2500, L100.0100, L501.4021 ####[facility] [address] [place], [address] ECRCL 71.61 ml/min Normal 50-250 [facility] Comment on above: Performed By: #### L 500.2500, L100.0100, L501.4021 ####[facility] [address] [place], [address] GAP 16 High 5-15 [facility] Comment on above: Performed By: #### L 500.2500, L100.0100, L501.4021 ####[facility] [address] [place], [address] GFR/1.73 sq M.predicted among non-blacks MDRD (S/P/Bld) [Vol rate/Area] 74 mL/min/{1.73_m2} Normal >60 [facility] Comment on above: Result Comment: mL/m in/1.73m2 CKD-EPI Creatinine Equation (2020) Performed By: #### L 500.2500, L100.0100, L501.4021 ####[facility] [address] [place], [address] Glucose [Mass/Vol] 400 mg/dL High 70-99 [facility] Comment on above: Performed By: #### L 500.2500, L100.0100, L501.4021 ####[facility] [address] [place], [address] Potassium [Moles/Vol] 4.0 mmol/L Normal 3.3-5.1 [facility] Comment on above: Result Comment: Hemo lysis present, Results??could be affected.?? Performed By: #### L 500.2500, L100.0100, L501.4021 ####[facility] [address] [place], [address] Sodium [Moles/Vol] 134 mmol/L Normal 133-145 [facility] Comment on above: Performed By: #### L 500.2500, L100.0100, L501.4021 ####[facility] [address] [place], [address] Urea nitrogen [Mass/Vol] 23 mg/dL High 4-19 [facility] Comment on above: Performed By: #### L 500.2500, L100.0100, L501.4021 ####[facility] [address] [place], [address] Basophil percentageOrdered B y: ED PROVIDER on 07-29-2024 Basophils/100 WBC (Bld) 0.3 % 0-1 [facility] CBC W/Diff, Automatedon 07-06 Absolute Lymph 2.79 X10 3/uL Normal 0.83-4.51 [facility] Comment on above: Performed By: #### L 500.2500, L100.0100, L501.4021 ####[facility] [address] [place], [address] Absolute Neut 4.0 X10 3/uL Normal 2.0-7.7 [facility] Comment on above: Performed By: #### L 500.2500, L100.0100, L501.4021 ####[facility] [address] [place], [address] Basophils/100 WBC (Bld) 0.3 % Normal 0-1 [facility] Comment on above: Performed By: #### L 500.2500, L100.0100, L501.4021 ####[facility] [address] [place], [address] Eosinophils/100 WBC (Bld) 2.5 % Normal 0-5 [facility] Comment on above: Performed By: #### L 500.2500, L100.0100, L501.4021 ####[facility] [address] [place], [address] Erythrocyte distribution width (RBC) [Ratio] 12.7 % Normal 11.6-14.6 [facility] Comment on above: Performed By: #### L 500.2500, L100.0100, L501.4021 ####[facility] [address] [place], [address] Hematocrit (Bld) [Volume fraction] 44.1 % Normal 40-54 [facility] Comment on above: Performed By: #### L 500.2500, L100.0100, L501.4021 ####[facility] [address] [place], [address] Hemoglobin (Bld) [Mass/Vol] 15.6 g/dL Normal 13.0-16.5 [facility] Comment on above: Performed By: #### L 500.2500, L100.0100, L501.4021 ####[facility] [address] [place], [address] IG% 0.100 Normal 0.0-0.9 [facility] Comment on above: Result Comment: IG% - Immature Granulocytes (promyelocytes, myelocytes andmetamyelocytes) > 1% indicates that a LEFT SHIFT is Present. Performed By: #### L 500.2500, L100.0100, L501.4021 ####[facility] [address] [place], [address] Lymphocytes/100 WBC (Bld) 37.4 % Normal 19-41 [facility] Comment on above: Performed By: #### L 500.2500, L100.0100, L501.4021 ####[facility] [address] [place], [address] MCH (RBC) [Entitic mass] 32.2 pg High 27.0-32.0 [facility] Comment on above: Performed By: #### L 500.2500, L100.0100, L501.4021 ####[facility] [address] [place], [address] MCHC (RBC) [Mass/Vol] 35.4 g/dL Normal 32-36 [facility] Comment on above: Performed By: #### L 500.2500, L100.0100, L501.4021 ####[facility] [address] [place], [address] MCV (RBC) [Entitic vol] 90.9 fL Normal 80-94 [facility] Comment on above: Performed By: #### L 500.2500, L100.0100, L501.4021 ####[facility] [address] [place], [address] Monocytes/100 WBC (Bld) 6.6 % Normal 0-10 [facility] Comment on above: Performed By: #### L 500.2500, L100.0100, L501.4021 ####[facility] [address] [place], [address] Neutrophils/100 WBC (Bld) 53.1 % Normal 47-70 [facility] Comment on above: Performed By: #### L 500.2500, L100.0100, L501.4021 ####[facility] [address] [place], [address] Nucleated RBC (Bld) [#/Vol] 0 10*3/uL Normal 0-5 [facility] Comment on above: Performed By: #### L 500.2500, L100.0100, L501.4021 ####[facility] [address] [place], [address] Platelet mean volume (Bld) [Entitic vol] 10.3 fL Normal 6.2-12.0 [facility] Comment on above: Performed By: #### L 500.2500, L100.0100, L501.4021 ####[facility] [address] [place], [address] Platelets (Bld) [#/Vol] 275 10*3/uL Normal 150-450 [facility] Comment on above: Performed By: #### L 500.2500, L100.0100, L501.4021 ####[facility] [address] [place], [address] RBC (Bld) [#/Vol] 4.85 10*6/uL Normal 4.6-6.2 [facility] Comment on above: Performed By: #### L 500.2500, L100.0100, L501.4021 ####[facility] [address] [place], [address] RDW SD 41.7 fl Normal 35.1-43.9 [facility] Comment on above: Performed By: #### L 500.2500, L100.0100, L501.4021 ####[facility] [address] [place], [address] WBC (Bld) [#/Vol] 7.5 10*3/uL Normal 4.4-11.0 [facility] Comment on above: Performed By: #### L 500.2500, L100.0100, L501.4021 ####[facility] [address] [place], [address] Carbon dioxide, total [Moles /volume] in Central venous bloodOrdered By: Lawson Castellon on 07-29-2024 CO2 [Moles/Vol] 19.8 mmol/L Low 21.0-32.0 [facility] Chest 1 View (Portable)on Chest 1 View (Portable) Normal [facility] Chloride assayOrdered By: Isael Castellon on 07-29-2024 Chloride [Moles/Vol] 99 mmol/L 98-108 [facility] Emergency Department Summary on 07-29-2024 Emergency Department Summary Normal [facility] Eosinophil percentageOrdered By: ED PROVIDER on 07-29-2024 Eosinophils/100 WBC (Bld) 2.5 % 0-5 [facility] Erythrocyte distribution wid th ratioOrdered By: ED PROVIDER on 07-29-2024 Erythrocyte distribution width (RBC) [Ratio] 12.7 % 11.6-14.6 [facility] Erythrocyte distribution wid th standard deviationOrdered By: ED PROVIDER on 07-29-2024 Erythrocyte distribution width (RBC) [Ratio] 41.7 fl 35.1-43.9 [facility] Glomerular filtration rate ( GFR) estimation/1.73 sq m using serum, plasma, or whole bOrdered By: Lawson Castellon on 07-29-2024 GFR/1.73 sq M.predicted among non-blacks MDRD (S/P/Bld) [Vol rate/Area] 74 mL/min/{1.73_m2} >60 [facility] Hematocrit Auto (Bld) [Volum e fraction]Ordered By: ED PROVIDER on 07-29-2024 Hematocrit (Bld) [Volume fraction] 44.1 % 40-54 [facility] Hemoglobin measurementOrdere d By: ED PROVIDER on 07-29-2024 Hemoglobin (Bld) [Mass/Vol] 15.6 g/dL 13.0-16.5 [facility] Immature granulocytes/100 WB C Auto (Bld)Ordered By: ED PROVIDER on 07-29-2024 Immature granulocytes/100 WBC (Bld) 0.100 % 0.0-0.9 [facility] L499.0042on 07-29-2024 Trop T High Sen 27 ng/L High <=22 [facility] Comment on above: Performed By: #### L 499.0042 ####[facility] [address] [place], [address] L501.4021on 07-29-2024 Trop T High Sen 22 ng/L Normal <=22 [facility] Comment on above: Performed By: #### L 500.2500, L100.0100, L501.4021 ####[facility] [address] [place], [address] MCV (mean corpuscular volume ) determinationOrdered By: ED PROVIDER on 07-29-2024 MCV (RBC) [Entitic vol] 90.9 fL 80-94 [facility] Mean corpuscular hemoglobin (MCH) determinationOrdered By: ED PROVIDER on 07-29-2024 MCH (RBC) [Entitic mass] 32.2 pg High 27.0-32.0 [facility] Monocyte percentageOrdered B y: ED PROVIDER on 07-29-2024 Monocytes/100 WBC (Bld) 6.6 % 0-10 [facility] Neutrophil percentageOrdered By: ED PROVIDER on 07-29-2024 Neutrophils/100 WBC (Bld) 53.1 % 47-70 [facility] Platelet countOrdered By: ED PROVIDER on 07-29-2024 Platelets (Bld) [#/Vol] 275 10*3/uL 150-450 [facility] Potassium measurement (mass/ volume)Ordered By: Lawson Castellon on 07-29-2024 Potassium (Unsp spec) [Mass/Vol] 4.0 mmol/L 3.3-5.1 [facility] RBC Auto (Bld) [#/Vol]Ordere d By: ED PROVIDER on 07-29-2024 RBC (Bld) [#/Vol] 4.85 10*6/uL 4.6-6.2 [facility] Serum creatinine measurement (mass/volume)Ordered By: Lawson Castellon on 07-29-2024 Creatinine [Mass/Vol] 1.11 mg/dL 0.70-1.20 [facility] Serum glucose measurement (m ass/volume)Ordered By: Lawson Castellon on 07-29-2024 Glucose [Mass/Vol] 400 mg/dL High 70-99 [facility] Serum or plasma calcium brenda urement (mass/volume)Ordered By: Lawson Castellon on 07-29-2024 Calcium [Mass/Vol] 9.3 mg/dL 7.6-11.0 [facility] Serum or plasma urea nitroge n measurement (mass/volume)Ordered By: Lawson Castellon on 07-29-2024 Urea nitrogen [Mass/Vol] 23 mg/dL High 4-19 [facility] Sodium levelOrdered By: Lawson Castellon on 07-29-2024 Sodium [Moles/Vol] 134 mmol/L 133-145 [facility] Troponin T.cardiac [Mass/vol ume] in Serum or Plasma by High sensitivity methodOrdered By: Lawson Castellon on 07-29-2024 Troponin T.cardiac High sensitivity method [Mass/Vol] 27 ng/L High <22 [facility] Troponin T.cardiac High sensitivity method [Mass/Vol] 22 ng/L <22 [facility] White blood cell (WBC) count Ordered By: ED PROVIDER on 07-29-2024 WBC (Bld) [#/Vol] 7.5 10*3/uL 4.4-11.0 [facility] MR/BMS.BVSon 07-14-2024 MR/BMS.BVS Normal [facility] Cardiology Visit Reporton Cardiology Visit Report Normal [facility] Basic Metabolic Profile (BMP )on 06-26-2024 BUN Normal 4-19 [facility] Comment on above: Result Comment: Canc elled via OM: Order cancelled - Patient discharged Performed By: #### L 500.2500, L100.0500 ####[facility] [address] [place], [address] BUN/CRE Normal 10-20 [facility] Comment on above: Result Comment: Canc elled via OM: Order cancelled - Patient discharged Performed By: #### L 500.2500, L100.0500 ####[facility] [address] [place], [address] Calcium Normal 7.6-11.0 [facility] Comment on above: Result Comment: Canc elled via OM: Order cancelled - Patient discharged Performed By: #### L 500.2500, L100.0500 ####[facility] [address] [place], [address] CL Normal 98-108 [facility] Comment on above: Result Comment: Canc elled via OM: Order cancelled - Patient discharged Performed By: #### L 500.2500, L100.0500 ####[facility] [address] [place], [address] CO2 Normal 21.0-32.0 [facility] Comment on above: Result Comment: Canc elled via OM: Order cancelled - Patient discharged Performed By: #### L 500.2500, L100.0500 ####[facility] [address] [place], [address] CREAT,SERUM Normal 0.70-1.20 [facility] Comment on above: Result Comment: Canc elled via OM: Order cancelled - Patient discharged Performed By: #### L 500.2500, L100.0500 ####[facility] [address] [place], [address] eGFR Normal >60 [facility] Comment on above: Result Comment: Canc elled via OM: Order cancelled - Patient discharged Performed By: #### L 500.2500, L100.0500 ####[facility] [address] [place], [address] GAP Normal 5-15 [facility] Comment on above: Result Comment: Canc elled via OM: Order cancelled - Patient discharged Performed By: #### L 500.2500, L100.0500 ####[facility] [address] [place], [address] GLU Normal 70-99 [facility] Comment on above: Result Comment: Canc elled via OM: Order cancelled - Patient discharged Performed By: #### L 500.2500, L100.0500 ####[facility] [address] [place], [address] Potassium Normal 3.3-5.1 [facility] Comment on above: Result Comment: Canc elled via OM: Order cancelled - Patient discharged Performed By: #### L 500.2500, L100.0500 ####[facility] [address] [place], [address] Basic Metabolic Profile (BMP) Normal 133-145 [facility] Comment on above: Result Comment: Canc elled via OM: Order cancelled - Patient discharged Performed By: #### L 500.2500, L100.0500 ####[facility] [address] [place], [address] CBC-Complete Blood Cnt No Di ffon 06-26-2024 HCT Normal 40-54 [facility] Comment on above: Result Comment: Canc elled via OM: Order cancelled - Patient discharged Performed By: #### L 500.2500, L100.0500 ####[facility] [address] [place], [address] HGB Normal 13.0-16.5 [facility] Comment on above: Result Comment: Canc elled via OM: Order cancelled - Patient discharged Performed By: #### L 500.2500, L100.0500 ####[facility] [address] [place], [address] MCH Normal 27.0-32.0 [facility] Comment on above: Result Comment: Canc elled via OM: Order cancelled - Patient discharged Performed By: #### L 500.2500, L100.0500 ####[facility] [address] [place], [address] MCHC Normal 32-36 [facility] Comment on above: Result Comment: Canc elled via OM: Order cancelled - Patient discharged Performed By: #### L 500.2500, L100.0500 ####[facility] [address] [place], [address] MCV Normal 80-94 [facility] Comment on above: Result Comment: Canc elled via OM: Order cancelled - Patient discharged Performed By: #### L 500.2500, L100.0500 ####[facility] [address] [place], [address] PLT Normal 150-450 [facility] Comment on above: Result Comment: Canc elled via OM: Order cancelled - Patient discharged Performed By: #### L 500.2500, L100.0500 ####[facility] [address] [place], [address] RBC Normal 4.6-6.2 [facility] Comment on above: Result Comment: Canc elled via OM: Order cancelled - Patient discharged Performed By: #### L 500.2500, L100.0500 ####[facility] [address] [place], [address] RDW CV Normal 11.6-14.6 [facility] Comment on above: Result Comment: Canc elled via OM: Order cancelled - Patient discharged Performed By: #### L 500.2500, L100.0500 ####[facility] [address] [place], [address] RDW SD Normal 35.1-43.9 [facility] Comment on above: Result Comment: Canc elled via OM: Order cancelled - Patient discharged Performed By: #### L 500.2500, L100.0500 ####[facility] [address] [place], [address] WBC Normal 4.4-11.0 [facility] Comment on above: Result Comment: Canc elled via OM: Order cancelled - Patient discharged Performed By: #### L 500.2500, L100.0500 ####[facility] [address] [place], [address] Basic Metabolic Profile (BMP )on 06-25-2024 BUN Normal 4-19 [facility] Comment on above: Result Comment: Canc elled via OM: Order cancelled - Patient discharged Performed By: #### L 100.0500, L500.2500 ####[facility] [address] [place], [address] BUN/CRE Normal 10-20 [facility] Comment on above: Result Comment: Canc elled via OM: Order cancelled - Patient discharged Performed By: #### L 100.0500, L500.2500 ####[facility] [address] [place], [address] Calcium Normal 7.6-11.0 [facility] Comment on above: Result Comment: Canc elled via OM: Order cancelled - Patient discharged Performed By: #### L 100.0500, L500.2500 ####[facility] [address] [place], [address] CL Normal 98-108 [facility] Comment on above: Result Comment: Canc elled via OM: Order cancelled - Patient discharged Performed By: #### L 100.0500, L500.2500 ####[facility] [address] [place], [address] CO2 Normal 21.0-32.0 [facility] Comment on above: Result Comment: Canc elled via OM: Order cancelled - Patient discharged Performed By: #### L 100.0500, L500.2500 ####[facility] [address] [place], [address] CREAT,SERUM Normal 0.70-1.20 [facility] Comment on above: Result Comment: Canc elled via OM: Order cancelled - Patient discharged Performed By: #### L 100.0500, L500.2500 ####[facility] [address] [place], [address] eGFR Normal >60 [facility] Comment on above: Result Comment: Canc elled via OM: Order cancelled - Patient discharged Performed By: #### L 100.0500, L500.2500 ####[facility] [address] [place], [address] GAP Normal 5-15 [facility] Comment on above: Result Comment: Canc elled via OM: Order cancelled - Patient discharged Performed By: #### L 100.0500, L500.2500 ####[facility] [address] [place], [address] GLU Normal 70-99 [facility] Comment on above: Result Comment: Canc elled via OM: Order cancelled - Patient discharged Performed By: #### L 100.0500, L500.2500 ####[facility] [address] [place], [address] Potassium Normal 3.3-5.1 [facility] Comment on above: Result Comment: Canc elled via OM: Order cancelled - Patient discharged Performed By: #### L 100.0500, L500.2500 ####[facility] [address] [place], [address] Basic Metabolic Profile (BMP) Normal 133-145 [facility] Comment on above: Result Comment: Canc elled via OM: Order cancelled - Patient discharged Performed By: #### L 100.0500, L500.2500 ####[facility] [address] [place], [address] CBC-Complete Blood Cnt No Di ffon 06-25-2024 HCT Normal 40-54 [facility] Comment on above: Result Comment: Canc elled via OM: Order cancelled - Patient discharged Performed By: #### L 100.0500, L500.2500 ####[facility] [address] [place], [address] HGB Normal 13.0-16.5 [facility] Comment on above: Result Comment: Canc elled via OM: Order cancelled - Patient discharged Performed By: #### L 100.0500, L500.2500 ####[facility] [address] [place], [address] MCH Normal 27.0-32.0 [facility] Comment on above: Result Comment: Canc elled via OM: Order cancelled - Patient discharged Performed By: #### L 100.0500, L500.2500 ####[facility] [address] [place], [address] MCHC Normal 32-36 [facility] Comment on above: Result Comment: Canc elled via OM: Order cancelled - Patient discharged Performed By: #### L 100.0500, L500.2500 ####[facility] [address] [place], [address] MCV Normal 80-94 [facility] Comment on above: Result Comment: Canc elled via OM: Order cancelled - Patient discharged Performed By: #### L 100.0500, L500.2500 ####[facility] [address] [place], [address] PLT Normal 150-450 [facility] Comment on above: Result Comment: Canc elled via OM: Order cancelled - Patient discharged Performed By: #### L 100.0500, L500.2500 ####[facility] [address] [place], [address] RBC Normal 4.6-6.2 [facility] Comment on above: Result Comment: Canc elled via OM: Order cancelled - Patient discharged Performed By: #### L 100.0500, L500.2500 ####[facility] [address] [place], [address] RDW CV Normal 11.6-14.6 [facility] Comment on above: Result Comment: Canc elled via OM: Order cancelled - Patient discharged Performed By: #### L 100.0500, L500.2500 ####[facility] [address] [place], [address] RDW SD Normal 35.1-43.9 [facility] Comment on above: Result Comment: Canc elled via OM: Order cancelled - Patient discharged Performed By: #### L 100.0500, L500.2500 ####[facility] [address] [place], [address] WBC Normal 4.4-11.0 [facility] Comment on above: Result Comment: Canc elled via OM: Order cancelled - Patient discharged Performed By: #### L 100.0500, L500.2500 ####[facility] [address] [place], [address] Basic Metabolic Profile (BMP )on 06-24-2024 BUN Normal 4-19 [facility] Comment on above: Result Comment: Canc elled via OM: Order cancelled - Patient discharged Performed By: #### L 500.2500, L100.0500 ####[facility] [address] [place], [address] BUN/CRE Normal 10-20 [facility] Comment on above: Result Comment: Canc elled via OM: Order cancelled - Patient discharged Performed By: #### L 500.2500, L100.0500 ####[facility] [address] [place], [address] Calcium Normal 7.6-11.0 [facility] Comment on above: Result Comment: Canc elled via OM: Order cancelled - Patient discharged Performed By: #### L 500.2500, L100.0500 ####[facility] [address] [place], [address] CL Normal 98-108 [facility] Comment on above: Result Comment: Canc elled via OM: Order cancelled - Patient discharged Performed By: #### L 500.2500, L100.0500 ####[facility] [address] [place], [address] CO2 Normal 21.0-32.0 [facility] Comment on above: Result Comment: Canc elled via OM: Order cancelled - Patient discharged Performed By: #### L 500.2500, L100.0500 ####[facility] [address] [place], [address] CREAT,SERUM Normal 0.70-1.20 [facility] Comment on above: Result Comment: Canc elled via OM: Order cancelled - Patient discharged Performed By: #### L 500.2500, L100.0500 ####[facility] [address] [place], [address] eGFR Normal >60 [facility] Comment on above: Result Comment: Canc elled via OM: Order cancelled - Patient discharged Performed By: #### L 500.2500, L100.0500 ####[facility] [address] [place], [address] GAP Normal 5-15 [facility] Comment on above: Result Comment: Canc elled via OM: Order cancelled - Patient discharged Performed By: #### L 500.2500, L100.0500 ####[facility] [address] [place], [address] GLU Normal 70-99 [facility] Comment on above: Result Comment: Canc elled via OM: Order cancelled - Patient discharged Performed By: #### L 500.2500, L100.0500 ####[facility] [address] [place], [address] Potassium Normal 3.3-5.1 [facility] Comment on above: Result Comment: Canc elled via OM: Order cancelled - Patient discharged Performed By: #### L 500.2500, L100.0500 ####[facility] [address] [place], [address] Basic Metabolic Profile (BMP) Normal 133-145 [facility] Comment on above: Result Comment: Canc elled via OM: Order cancelled - Patient discharged Performed By: #### L 500.2500, L100.0500 ####[facility] [address] [place], [address] CBC-Complete Blood Cnt No Di ffon 06-24-2024 HCT Normal 40-54 [facility] Comment on above: Result Comment: Canc elled via OM: Order cancelled - Patient discharged Performed By: #### L 500.2500, L100.0500 ####[facility] [address] [place], [address] HGB Normal 13.0-16.5 [facility] Comment on above: Result Comment: Canc elled via OM: Order cancelled - Patient discharged Performed By: #### L 500.2500, L100.0500 ####[facility] [address] [place], [address] MCH Normal 27.0-32.0 [facility] Comment on above: Result Comment: Canc elled via OM: Order cancelled - Patient discharged Performed By: #### L 500.2500, L100.0500 ####[facility] [address] [place], [address] MCHC Normal 32-36 [facility] Comment on above: Result Comment: Canc elled via OM: Order cancelled - Patient discharged Performed By: #### L 500.2500, L100.0500 ####[facility] [address] [place], [address] MCV Normal 80-94 [facility] Comment on above: Result Comment: Canc elled via OM: Order cancelled - Patient discharged Performed By: #### L 500.2500, L100.0500 ####[facility] [address] [place], [address] PLT Normal 150-450 [facility] Comment on above: Result Comment: Canc elled via OM: Order cancelled - Patient discharged Performed By: #### L 500.2500, L100.0500 ####[facility] [address] [place], [address] RBC Normal 4.6-6.2 [facility] Comment on above: Result Comment: Canc elled via OM: Order cancelled - Patient discharged Performed By: #### L 500.2500, L100.0500 ####[facility] [address] [place], [address] RDW CV Normal 11.6-14.6 [facility] Comment on above: Result Comment: Canc elled via OM: Order cancelled - Patient discharged Performed By: #### L 500.2500, L100.0500 ####[facility] [address] [place], [address] RDW SD Normal 35.1-43.9 [facility] Comment on above: Result Comment: Canc elled via OM: Order cancelled - Patient discharged Performed By: #### L 500.2500, L100.0500 ####[facility] [address] [place], [address] WBC Normal 4.4-11.0 [facility] Comment on above: Result Comment: Canc elled via OM: Order cancelled - Patient discharged Performed By: #### L 500.2500, L100.0500 ####[facility] [address] [place], [address] Basic Metabolic Profile (BMP )on 06-23-2024 BUN Normal -19 [facility] Comment on above: Result Comment: Canc elled via OM: Order cancelled - Patient discharged Performed By: #### L 500.2500, L100.0500 ####[facility] [address] [place], [address] BUN/CRE Normal -20 [facility] Comment on above: Result Comment: Canc elled via OM: Order cancelled - Patient discharged Performed By: #### L 500.2500, L100.0500 ####[facility] [address] [place], [address] Calcium Normal 7.6-11.0 [facility] Comment on above: Result Comment: Canc elled via OM: Order cancelled - Patient discharged Performed By: #### L 500.2500, L100.0500 ####[facility] [address] [place], [address] CL Normal 98-108 [facility] Comment on above: Result Comment: Canc elled via OM: Order cancelled - Patient discharged Performed By: #### L 500.2500, L100.0500 ####[facility] [address] [place], [address] CO2 Normal 21.0-32.0 [facility] Comment on above: Result Comment: Canc elled via OM: Order cancelled - Patient discharged Performed By: #### L 500.2500, L100.0500 ####[facility] [address] [place], [address] CREAT,SERUM Normal 0.70-1.20 [facility] Comment on above: Result Comment: Canc elled via OM: Order cancelled - Patient discharged Performed By: #### L 500.2500, L100.0500 ####[facility] [address] [place], [address] eGFR Normal >60 [facility] Comment on above: Result Comment: Canc elled via OM: Order cancelled - Patient discharged Performed By: #### L 500.2500, L100.0500 ####[facility] [address] [place], [address] GAP Normal 5-15 [facility] Comment on above: Result Comment: Canc elled via OM: Order cancelled - Patient discharged Performed By: #### L 500.2500, L100.0500 ####[facility] [address] [place], [address] GLU Normal 70-99 [facility] Comment on above: Result Comment: Canc elled via OM: Order cancelled - Patient discharged Performed By: #### L 500.2500, L100.0500 ####[facility] [address] [place], [address] Potassium Normal 3.3-5.1 [facility] Comment on above: Result Comment: Canc elled via OM: Order cancelled - Patient discharged Performed By: #### L 500.2500, L100.0500 ####[facility] [address] [place], [address] Basic Metabolic Profile (BMP) Normal 133-145 [facility] Comment on above: Result Comment: Canc elled via OM: Order cancelled - Patient discharged Performed By: #### L 500.2500, L100.0500 ####[facility] [address] [place], [address] CBC-Complete Blood Cnt No Di ffon 06-23-2024 HCT Normal 40-54 [facility] Comment on above: Result Comment: Canc elled via OM: Order cancelled - Patient discharged Performed By: #### L 500.2500, L100.0500 ####[facility] [address] [place], [address] HGB Normal 13.0-16.5 [facility] Comment on above: Result Comment: Canc elled via OM: Order cancelled - Patient discharged Performed By: #### L 500.2500, L100.0500 ####[facility] [address] [place], [address] MCH Normal 27.0-32.0 [facility] Comment on above: Result Comment: Canc elled via OM: Order cancelled - Patient discharged Performed By: #### L 500.2500, L100.0500 ####[facility] [address] [place], [address] MCHC Normal 32-36 [facility] Comment on above: Result Comment: Canc elled via OM: Order cancelled - Patient discharged Performed By: #### L 500.2500, L100.0500 ####[facility] [address] [place], [address] MCV Normal 80-94 [facility] Comment on above: Result Comment: Canc elled via OM: Order cancelled - Patient discharged Performed By: #### L 500.2500, L100.0500 ####[facility] [address] [place], [address] PLT Normal 150-450 [facility] Comment on above: Result Comment: Canc elled via OM: Order cancelled - Patient discharged Performed By: #### L 500.2500, L100.0500 ####[facility] [address] [place], [address] RBC Normal 4.6-6.2 [facility] Comment on above: Result Comment: Canc elled via OM: Order cancelled - Patient discharged Performed By: #### L 500.2500, L100.0500 ####[facility] [address] [place], [address] RDW CV Normal 11.6-14.6 [facility] Comment on above: Result Comment: Canc elled via OM: Order cancelled - Patient discharged Performed By: #### L 500.2500, L100.0500 ####[facility] [address] [place], [address] RDW SD Normal 35.1-43.9 [facility] Comment on above: Result Comment: Canc elled via OM: Order cancelled - Patient discharged Performed By: #### L 500.2500, L100.0500 ####[facility] [address] [place], [address] WBC Normal 4.4-11.0 [facility] Comment on above: Result Comment: Canc elled via OM: Order cancelled - Patient discharged Performed By: #### L 500.2500, L100.0500 ####[facility] [address] [place], [address] Basic Metabolic Profile (BMP )on 06-22-2024 BUN Normal 4-19 [facility] Comment on above: Result Comment: Canc elled via OM: Order cancelled - Patient discharged Performed By: #### L 100.0500, L500.2500 ####[facility] [address] [place], [address] BUN/CRE Normal 10-20 [facility] Comment on above: Result Comment: Canc elled via OM: Order cancelled - Patient discharged Performed By: #### L 100.0500, L500.2500 ####[facility] [address] [place], [address] Calcium Normal 7.6-11.0 [facility] Comment on above: Result Comment: Canc elled via OM: Order cancelled - Patient discharged Performed By: #### L 100.0500, L500.2500 ####[facility] [address] [place], [address] CL Normal 98-108 [facility] Comment on above: Result Comment: Canc elled via OM: Order cancelled - Patient discharged Performed By: #### L 100.0500, L500.2500 ####[facility] [address] [place], [address] CO2 Normal 21.0-32.0 [facility] Comment on above: Result Comment: Canc elled via OM: Order cancelled - Patient discharged Performed By: #### L 100.0500, L500.2500 ####[facility] [address] [place], [address] CREAT,SERUM Normal 0.70-1.20 [facility] Comment on above: Result Comment: Canc elled via OM: Order cancelled - Patient discharged Performed By: #### L 100.0500, L500.2500 ####[facility] [address] [place], [address] eGFR Normal >60 [facility] Comment on above: Result Comment: Canc elled via OM: Order cancelled - Patient discharged Performed By: #### L 100.0500, L500.2500 ####[facility] [address] [place], [address] GAP Normal 5-15 [facility] Comment on above: Result Comment: Canc elled via OM: Order cancelled - Patient discharged Performed By: #### L 100.0500, L500.2500 ####[facility] [address] [place], [address] GLU Normal 70-99 [facility] Comment on above: Result Comment: Canc elled via OM: Order cancelled - Patient discharged Performed By: #### L 100.0500, L500.2500 ####[facility] [address] [place], [address] Potassium Normal 3.3-5.1 [facility] Comment on above: Result Comment: Canc elled via OM: Order cancelled - Patient discharged Performed By: #### L 100.0500, L500.2500 ####[facility] [address] [place], [address] Basic Metabolic Profile (BMP) Normal 133-145 [facility] Comment on above: Result Comment: Canc elled via OM: Order cancelled - Patient discharged Performed By: #### L 100.0500, L500.2500 ####[facility] [address] [place], [address] CBC-Complete Blood Cnt No Di ffon 06-22-2024 HCT Normal 40-54 [facility] Comment on above: Result Comment: Canc elled via OM: Order cancelled - Patient discharged Performed By: #### L 100.0500, L500.2500 ####[facility] [address] [place], [address] HGB Normal 13.0-16.5 [facility] Comment on above: Result Comment: Canc elled via OM: Order cancelled - Patient discharged Performed By: #### L 100.0500, L500.2500 ####[facility] [address] [place], [address] MCH Normal 27.0-32.0 [facility] Comment on above: Result Comment: Canc elled via OM: Order cancelled - Patient discharged Performed By: #### L 100.0500, L500.2500 ####[facility] [address] [place], [address] MCHC Normal 32-36 [facility] Comment on above: Result Comment: Canc elled via OM: Order cancelled - Patient discharged Performed By: #### L 100.0500, L500.2500 ####[facility] [address] [place], [address] MCV Normal 80-94 [facility] Comment on above: Result Comment: Canc elled via OM: Order cancelled - Patient discharged Performed By: #### L 100.0500, L500.2500 ####[facility] [address] [place], [address] PLT Normal 150-450 [facility] Comment on above: Result Comment: Canc elled via OM: Order cancelled - Patient discharged Performed By: #### L 100.0500, L500.2500 ####[facility] [address] [place], [address] RBC Normal 4.6-6.2 [facility] Comment on above: Result Comment: Canc elled via OM: Order cancelled - Patient discharged Performed By: #### L 100.0500, L500.2500 ####[facility] [address] [place], [address] RDW CV Normal 11.6-14.6 [facility] Comment on above: Result Comment: Canc elled via OM: Order cancelled - Patient discharged Performed By: #### L 100.0500, L500.2500 ####[facility] [address] [place], [address] RDW SD Normal 35.1-43.9 [facility] Comment on above: Result Comment: Canc elled via OM: Order cancelled - Patient discharged Performed By: #### L 100.0500, L500.2500 ####[facility] [address] [place], [address] WBC Normal 4.4-11.0 [facility] Comment on above: Result Comment: Canc elled via OM: Order cancelled - Patient discharged Performed By: #### L 100.0500, L500.2500 ####[facility] [address] [place], [address] Basic Metabolic Profile (BMP )on 06-21-2024 BUN Normal 4-19 [facility] Comment on above: Result Comment: Canc elled via OM: Order cancelled - Patient discharged Performed By: #### L 100.0500, L500.2500 ####[facility] [address] [place], [address] BUN/CRE Normal 10-20 [facility] Comment on above: Result Comment: Canc elled via OM: Order cancelled - Patient discharged Performed By: #### L 100.0500, L500.2500 ####[facility] [address] [place], [address] Calcium Normal 7.6-11.0 [facility] Comment on above: Result Comment: Canc elled via OM: Order cancelled - Patient discharged Performed By: #### L 100.0500, L500.2500 ####[facility] [address] [place], [address] CL Normal 98-108 [facility] Comment on above: Result Comment: Canc elled via OM: Order cancelled - Patient discharged Performed By: #### L 100.0500, L500.2500 ####[facility] [address] [place], [address] CO2 Normal 21.0-32.0 [facility] Comment on above: Result Comment: Canc elled via OM: Order cancelled - Patient discharged Performed By: #### L 100.0500, L500.2500 ####[facility] [address] [place], [address] CREAT,SERUM Normal 0.70-1.20 [facility] Comment on above: Result Comment: Canc elled via OM: Order cancelled - Patient discharged Performed By: #### L 100.0500, L500.2500 ####[facility] [address] [place], [address] eGFR Normal >60 [facility] Comment on above: Result Comment: Canc elled via OM: Order cancelled - Patient discharged Performed By: #### L 100.0500, L500.2500 ####[facility] [address] [place], [address] GAP Normal 5-15 [facility] Comment on above: Result Comment: Canc elled via OM: Order cancelled - Patient discharged Performed By: #### L 100.0500, L500.2500 ####[facility] [address] [place], [address] GLU Normal 70-99 [facility] Comment on above: Result Comment: Canc elled via OM: Order cancelled - Patient discharged Performed By: #### L 100.0500, L500.2500 ####[facility] [address] [place], [address] Potassium Normal 3.3-5.1 [facility] Comment on above: Result Comment: Canc elled via OM: Order cancelled - Patient discharged Performed By: #### L 100.0500, L500.2500 ####[facility] [address] [place], [address] Basic Metabolic Profile (BMP) Normal 133-145 [facility] Comment on above: Result Comment: Canc elled via OM: Order cancelled - Patient discharged Performed By: #### L 100.0500, L500.2500 ####[facility] [address] [place], [address] CBC-Complete Blood Cnt No Di ffon 06-21-2024 HCT Normal 40-54 [facility] Comment on above: Result Comment: Canc elled via OM: Order cancelled - Patient discharged Performed By: #### L 100.0500, L500.2500 ####[facility] [address] [place], [address] HGB Normal 13.0-16.5 [facility] Comment on above: Result Comment: Canc elled via OM: Order cancelled - Patient discharged Performed By: #### L 100.0500, L500.2500 ####[facility] [address] [place], [address] MCH Normal 27.0-32.0 [facility] Comment on above: Result Comment: Canc elled via OM: Order cancelled - Patient discharged Performed By: #### L 100.0500, L500.2500 ####[facility] [address] [place], [address] MCHC Normal 32-36 [facility] Comment on above: Result Comment: Canc elled via OM: Order cancelled - Patient discharged Performed By: #### L 100.0500, L500.2500 ####[facility] [address] [place], [address] MCV Normal 80-94 [facility] Comment on above: Result Comment: Canc elled via OM: Order cancelled - Patient discharged Performed By: #### L 100.0500, L500.2500 ####[facility] [address] [place], [address] PLT Normal 150-450 [facility] Comment on above: Result Comment: Canc elled via OM: Order cancelled - Patient discharged Performed By: #### L 100.0500, L500.2500 ####[facility] [address] [place], [address] RBC Normal 4.6-6.2 [facility] Comment on above: Result Comment: Canc elled via OM: Order cancelled - Patient discharged Performed By: #### L 100.0500, L500.2500 ####[facility] [address] [place], [address] RDW CV Normal 11.6-14.6 [facility] Comment on above: Result Comment: Canc elled via OM: Order cancelled - Patient discharged Performed By: #### L 100.0500, L500.2500 ####[facility] [address] [place], [address] RDW SD Normal 35.1-43.9 [facility] Comment on above: Result Comment: Canc elled via OM: Order cancelled - Patient discharged Performed By: #### L 100.0500, L500.2500 ####[facility] [address] [place], [address] WBC Normal 4.4-11.0 [facility] Comment on above: Result Comment: Canc elled via OM: Order cancelled - Patient discharged Performed By: #### L 100.0500, L500.2500 ####[facility] [address] [place], [address] Anion gap in Serum or Plasma Ordered By: Donna Wolff on 06-20-2024 Anion gap [Moles/Vol] 14 mmol/L 5-15 [facility] BUN/creatinine ratioOrdered By: Donna Wolff on 06-20-2024 Urea nitrogen/Creatinine [Mass ratio] 27.2 mg/mg High [facility] Basic Metabolic Profile (BMP )on 06-20-2024 BUN/CRE 27.[address] [facility] Comment on above: Performed By: #### L 100.0500, L500.2500 ####[facility] [address] [place], [address] Calcium [Mass/Vol] 9.5 mg/dL Normal 7.6-11.0 [facility] Comment on above: Performed By: #### L 100.0500, L500.2500 ####[facility] [address] [place], [address] Chloride [Moles/Vol] 100 mmol/L Normal 98-108 [facility] Comment on above: Performed By: #### L 100.0500, L500.2500 ####[facility] [address] [place], [address] CO2 [Moles/Vol] 24.8 mmol/L Normal 21.0-32.0 [facility] Comment on above: Performed By: #### L 100.0500, L500.2500 ####[facility] [address] [place], [address] Creatinine [Mass/Vol] 1.07 mg/dL Normal 0.70-1.20 [facility] Comment on above: Performed By: #### L 100.0500, L500.2500 ####[facility] [address] [place], [address] ECRCL 74.28 ml/min Normal 50-250 [facility] Comment on above: Performed By: #### L 100.0500, L500.2500 ####[facility] [address] [place], [address] GAP 14 Normal 5-15 [facility] Comment on above: Performed By: #### L 100.0500, L500.2500 ####[facility] [address] [place], [address] GFR/1.73 sq M.predicted among non-blacks MDRD (S/P/Bld) [Vol rate/Area] 77 mL/min/{1.73_m2} Normal >60 [facility] Comment on above: Result Comment: mL/m in/1.73m2 CKD-EPI Creatinine Equation (2020) Performed By: #### L 100.0500, L500.2500 ####[facility] [address] [place], [address] Glucose [Mass/Vol] 110 mg/dL High 70-99 [facility] Comment on above: Performed By: #### L 100.0500, L500.2500 ####[facility] [address] [place], [address] Potassium [Moles/Vol] 3.8 mmol/L Normal 3.3-5.1 [facility] Comment on above: Performed By: #### L 100.0500, L500.2500 ####[facility] [address] [place], [address] Sodium [Moles/Vol] 138 mmol/L Normal 133-145 [facility] Comment on above: Performed By: #### L 100.0500, L500.2500 ####[facility] [address] [place], [address] Urea nitrogen [Mass/Vol] 29 mg/dL High 4-19 [facility] Comment on above: Performed By: #### L 100.0500, L500.2500 ####[facility] [address] [place], [address] Bedside Glucoseon 06-20-2024 FINGERSTICK GLU 127 mg/dL High 74-106 [facility] Comment on above: Result Comment: SNEHA DUNCAN OF PATIENT CARE PER NURSING PROTOCOL Performed By: #### L 501.080 ####[facility] [address] [place], [address] CBC-Complete Blood Cnt No Di ffon 06-20-2024 Erythrocyte distribution width (RBC) [Ratio] 13.0 % Normal 11.6-14.6 [facility] Comment on above: Performed By: #### L 100.0500, L500.2500 ####[facility] [address] [place], [address] Hematocrit (Bld) [Volume fraction] 50.5 % Normal 40-54 [facility] Comment on above: Performed By: #### L 100.0500, L500.2500 ####[facility] [address] [place], [address] Hemoglobin (Bld) [Mass/Vol] 16.8 g/dL High 13.0-16.5 [facility] Comment on above: Performed By: #### L 100.0500, L500.2500 ####[facility] [address] [place], [address] MCH (RBC) [Entitic mass] 30.8 pg Normal 27.0-32.0 [facility] Comment on above: Performed By: #### L 100.0500, L500.2500 ####[facility] [address] [place], [address] MCHC (RBC) [Mass/Vol] 33.3 g/dL Normal 32-36 [facility] Comment on above: Performed By: #### L 100.0500, L500.2500 ####[facility] [address] [place], [address] MCV (RBC) [Entitic vol] 92.5 fL Normal 80-94 [facility] Comment on above: Performed By: #### L 100.0500, L500.2500 ####[facility] [address] [place], [address] Platelet mean volume (Bld) [Entitic vol] 10.1 fL Normal 6.2-12.0 [facility] Comment on above: Performed By: #### L 100.0500, L500.2500 ####[facility] [address] [place], [address] Platelets (Bld) [#/Vol] 295 10*3/uL Normal 150-450 [facility] Comment on above: Performed By: #### L 100.0500, L500.2500 ####[facility] [address] [place], [address] RBC (Bld) [#/Vol] 5.46 10*6/uL Normal 4.6-6.2 [facility] Comment on above: Performed By: #### L 100.0500, L500.2500 ####[facility] [address] [place], [address] RDW SD 43.8 fl Normal 35.1-43.9 [facility] Comment on above: Performed By: #### L 100.0500, L500.2500 ####[facility] [address] [place], [address] WBC (Bld) [#/Vol] 14.2 10*3/uL High 4.4-11.0 [facility] Comment on above: Performed By: #### L 100.0500, L500.2500 ####[facility] [address] [place], [address] Carbon dioxide, total [Moles /volume] in Central venous bloodOrdered By: Donna Wolff on 06-20-2024 CO2 [Moles/Vol] 24.8 mmol/L 21.0-32.0 [facility] Chloride assayOrdered By: Nilson Wolff on 06-20-2024 Chloride [Moles/Vol] 100 mmol/L 98-108 [facility] Discharge Instructionon 06-04 Discharge Instruction Normal [facility] Erythrocyte distribution wid th ratioOrdered By: Donna Wolff on 06-20-2024 Erythrocyte distribution width (RBC) [Ratio] 13.0 % 11.6-14.6 [facility] Erythrocyte distribution wid th standard deviationOrdered By: Donna Wolff on 06-20-2024 Erythrocyte distribution width (RBC) [Ratio] 43.8 fl 35.1-43.9 [facility] Glomerular filtration rate ( GFR) estimation/1.73 sq m using serum, plasma, or whole bOrdered By: Donna Wolff on 06-20-2024 GFR/1.73 sq M.predicted among non-blacks MDRD (S/P/Bld) [Vol rate/Area] 77 mL/min/{1.73_m2} >60 [facility]: Donna Wolff on 06-20-2024 Glucose [Mass/Vol] 127 mg/dL High 74-106 [facility] Hematocrit Auto (Bld) [Volum e fraction]Ordered By: Donna Wolff on 06-20-2024 Hematocrit (Bld) [Volume fraction] 50.5 % 40-54 [facility] Hemoglobin measurementOrdere d By: Donna Wolff on 06-20-2024 Hemoglobin (Bld) [Mass/Vol] 16.8 g/dL High 13.0-16.5 [facility] MCV (mean corpuscular volume ) determinationOrdered By: Donna Wolff on 06-20-2024 MCV (RBC) [Entitic vol] 92.5 fL 80-94 [facility] Mean corpuscular hemoglobin (MCH) determinationOrdered By: Donna Wolff on 06-20-2024 MCH (RBC) [Entitic mass] 30.8 pg 27.0-32.0 [facility] Platelet countOrdered By: Nilson Wolff on 06-20-2024 Platelets (Bld) [#/Vol] 295 10*3/uL 150-450 [facility] Potassium measurement (mass/ volume)Ordered By: Donna Wolff on 06-20-2024 Potassium (Unsp spec) [Mass/Vol] 3.8 mmol/L 3.3-5.1 [facility] RBC Auto (Bld) [#/Vol]Ordere d By: Donna Wolff on 06-20-2024 RBC (Bld) [#/Vol] 5.46 10*6/uL 4.6-6.2 [facility] Serum creatinine measurement (mass/volume)Ordered By: Donna Wolff on 06-20-2024 Creatinine [Mass/Vol] 1.07 mg/dL 0.70-1.20 [facility] Serum glucose measurement (m ass/volume)Ordered By: Donna Wolff on 06-20-2024 Glucose [Mass/Vol] 110 mg/dL High 70-99 [facility] Serum or plasma calcium brenda urement (mass/volume)Ordered By: Donna Wolff on 06-20-2024 Calcium [Mass/Vol] 9.5 mg/dL 7.6-11.0 [facility] Serum or plasma urea nitroge n measurement (mass/volume)Ordered By: Donna Wolff on 06-20-2024 Urea nitrogen [Mass/Vol] 29 mg/dL High 4-19 [facility] Sodium levelOrdered By: Gretta Wolff on 06-20-2024 Sodium [Moles/Vol] 138 mmol/L 133-145 [facility] Stress Reporton 06-20-2024 Stress Report Normal [facility] White blood cell (WBC) count Ordered By: Donna Wolff on 06-20-2024 WBC (Bld) [#/Vol] 14.2 10*3/uL High 4.4-11.0 [facility] Absolute lymphocyte countOrd ered By: Steve Donald on 06-19-2024 Lymphocytes Auto (Unsp spec) [#/Vol] 1.12 10*3/uL 0.83-4.51 [facility] Automated lymphocyte count a s percentage of total leukocytesOrdered By: Steve Donald on 06-19-2024 Lymphocytes/100 WBC Auto (Unsp spec) 9.8 % Low 19-41 [facility] Basophil percentageOrdered B y: Steve Donald on 06-19-2024 Basophils/100 WBC (Bld) 0.1 % 0-1 [facility] Bedside Glucoseon 06-19-2024 FINGERSTICK GLU 220 mg/dL High 74-106 [facility] Comment on above: Result Comment: SNEHA GEMENT OF PATIENT CARE PER NURSING PROTOCOL Performed By: #### L 501.080 ####[facility] [address] [facility] [address] FINGERSTICK GLU 431 mg/dL High 74-[address] [place] [address] Comment on above: Result Comment: SNEHA GEMENT OF PATIENT CARE PER NURSING PROTOCOL Performed By: #### L 501.080 ####[facility] [address] [facility] [address] FINGERSTICK GLU 387 mg/dL [facility]106 [facility] Comment on above: Result Comment: SNEHA GEMENT OF PATIENT CARE PER NURSING PROTOCOL Performed By: #### L 501.080 ####[facility] [address] [place], [address] FINGERSTICK GLU 292 mg/dL High 74-106 [facility] Comment on above: Result Comment: SNEHA DUNCAN OF PATIENT CARE PER NURSING PROTOCOL Performed By: #### L 501.080 ####[facility] [address] [place], [address] Bilirubin, totalOrdered By: Steve Donald on 06-19-2024 Bilirubin [Mass/Vol] 0.63 mg/dL 0.00-1.30 [facility] CBC W/Diff, Automatedon 06-04 Absolute Lymph 1.12 X10 3/uL Normal 0.83-4.51 [facility] Comment on above: Performed By: #### L 501.9985, L500.4050, L501.2300, L100.0100 ####[facility] [address] [place], [address] Absolute Neut 9.8 X10 3/uL High 2.0-7.7 [facility] Comment on above: Performed By: #### L 501.9985, L500.4050, L501.2300, L100.0100 ####[facility] [address] [place], [address] Basophils/100 WBC (Bld) 0.1 % Normal 0-1 [facility] Comment on above: Performed By: #### L 501.9985, L500.4050, L501.2300, L100.0100 ####[facility] [address] [place], [address] Eosinophils/100 WBC (Bld) 0.0 % Normal 0-5 [facility] Comment on above: Performed By: #### L 501.9985, L500.4050, L501.2300, L100.0100 ####[facility] [address] [place], [address] Erythrocyte distribution width (RBC) [Ratio] 12.8 % Normal 11.6-14.6 [facility] Comment on above: Performed By: #### L 501.9985, L500.4050, L501.2300, L100.0100 ####[facility] [address] [place], [address] Hematocrit (Bld) [Volume fraction] 49.9 % Normal 40-54 [facility] Comment on above: Performed By: #### L 501.9985, L500.4050, L501.2300, L100.0100 ####[facility] [address] [place], [address] Hemoglobin (Bld) [Mass/Vol] 16.8 g/dL High 13.0-16.5 [facility] Comment on above: Performed By: #### L 501.9985, L500.4050, L501.2300, L100.0100 ####[facility] [address] [place], [address] IG% 0.700 Normal 0.0-0.9 [facility] Comment on above: Result Comment: IG% - Immature Granulocytes (promyelocytes, myelocytes andmetamyelocytes) > 1% indicates that a LEFT SHIFT is Present. Performed By: #### L 501.9985, L500.4050, L501.2300, L100.0100 ####[facility] [address] [place], [address] Lymphocytes/100 WBC (Bld) 9.8 % Low 19-41 [facility] Comment on above: Performed By: #### L 501.9985, L500.4050, L501.2300, L100.0100 ####[facility] [address] [place], [address] MCH (RBC) [Entitic mass] 31.3 pg Normal 27.0-32.0 [facility] Comment on above: Performed By: #### L 501.9985, L500.4050, L501.2300, L100.0100 ####[facility] [address] [place], [address] MCHC (RBC) [Mass/Vol] 33.7 g/dL Normal 32-36 [facility] Comment on above: Performed By: #### L 501.9985, L500.4050, L501.2300, L100.0100 ####[facility] [address] [place], [address] MCV (RBC) [Entitic vol] 92.9 fL Normal 80-94 [facility] Comment on above: Performed By: #### L 501.9985, L500.4050, L501.2300, L100.0100 ####[facility] [address] [place], [address] Monocytes/100 WBC (Bld) 3.2 % Normal 0-10 [facility] Comment on above: Performed By: #### L 501.9985, L500.4050, L501.2300, L100.0100 ####[facility] [address] [place], [address] Neutrophils/100 WBC (Bld) 86.2 % High 47-70 [facility] Comment on above: Performed By: #### L 501.9985, L500.4050, L501.2300, L100.0100 ####[facility] [address] [place], [address] Nucleated RBC (Bld) [#/Vol] 0 10*3/uL Normal 0-5 [facility] Comment on above: Performed By: #### L 501.9985, L500.4050, L501.2300, L100.0100 ####[facility] [address] [place], [address] Platelet mean volume (Bld) [Entitic vol] 10.4 fL Normal 6.2-12.0 [facility] Comment on above: Performed By: #### L 501.9985, L500.4050, L501.2300, L100.0100 ####[facility] [address] [place], [address] Platelets (Bld) [#/Vol] 290 10*3/uL Normal 150-450 [facility] Comment on above: Performed By: #### L 501.9985, L500.4050, L501.2300, L100.0100 ####[facility] [address] [place], [address] RBC (Bld) [#/Vol] 5.37 10*6/uL Normal 4.6-6.2 [facility] Comment on above: Performed By: #### L 501.9985, L500.4050, L501.2300, L100.0100 ####[facility] [address] [place], [address] RDW SD 43.8 fl Normal 35.1-43.9 [facility] Comment on above: Performed By: #### L 501.9985, L500.4050, L501.2300, L100.0100 ####[facility] [address] [place], [address] WBC (Bld) [#/Vol] 11.4 10*3/uL High 4.4-11.0 [facility] Comment on above: Performed By: #### L 501.9985, L500.4050, L501.2300, L100.0100 ####[facility] [address] [place], [address] Chest 1 View (Portable)on Chest 1 View (Portable) Normal [facility] Comprehensive Metabolic Prof ilon 06-19-2024 GAP 17 High 5-15 [facility] Comment on above: Performed By: #### L 501.9985, L500.4050, L501.2300, L100.0100 ####[facility] [address] [place], [address] Albumin [Mass/Vol] 4.1 g/dL Normal 3.4-4.8 [facility] Comment on above: Performed By: #### L 501.9985, L500.4050, L501.2300, L100.0100 ####[facility] [address] [place], [address] Albumin/Globulin [Mass ratio] 1.2 {ratio} Normal 0.9-2.4 [facility] Comment on above: Performed By: #### L 501.9985, L500.4050, L501.2300, L100.0100 ####[facility] [address] [place], [address] ALK PHOS 89 U/L Normal 40-129 [facility] Comment on above: Performed By: #### L 501.9985, L500.4050, L501.2300, L100.0100 ####[facility] [address] [place], [address] ALT [Catalytic activity/Vol] 38 U/L Normal <=46 [facility] Comment on above: Performed By: #### L 501.9985, L500.4050, L501.2300, L100.0100 ####[facility] [address] [place], [address] AST [Catalytic activity/Vol] 26 U/L Normal <=37 [facility] Comment on above: Performed By: #### L 501.9985, L500.4050, L501.2300, L100.0100 ####[facility] [address] [place], [address] Bilirubin [Mass/Vol] 0.63 mg/dL Normal 0.00-1.30 [facility] Comment on above: Performed By: #### L 501.9985, L500.4050, L501.2300, L100.0100 ####[facility] [address] [place], [address] BUN/CRE 24.5 RATIO High 10-20 [facility] Comment on above: Performed By: #### L 501.9985, L500.4050, L501.2300, L100.0100 ####[facility] [address] [place], [address] Calcium [Mass/Vol] 9.6 mg/dL Normal 7.6-11.0 [facility] Comment on above: Performed By: #### L 501.9985, L500.4050, L501.2300, L100.0100 ####[facility] [address] [place], [address] Chloride [Moles/Vol] 97 mmol/L Low 98-108 [facility] Comment on above: Performed By: #### L 501.9985, L500.4050, L501.2300, L100.0100 ####[facility] [address] [place], [address] CO2 [Moles/Vol] 19.8 mmol/L Low 21.0-32.0 [facility] Comment on above: Performed By: #### L 501.9985, L500.4050, L501.2300, L100.0100 ####[facility] [address] [place], [address] Creatinine [Mass/Vol] 1.12 mg/dL Normal 0.70-1.20 [facility] Comment on above: Performed By: #### L 501.9985, L500.4050, L501.2300, L100.0100 ####[facility] [address] [place], [address] ECRCL 70.97 ml/min Normal 50-250 [facility] Comment on above: Performed By: #### L 501.9985, L500.4050, L501.2300, L100.0100 ####[facility] [address] [place], [address] GFR/1.73 sq M.predicted among non-blacks MDRD (S/P/Bld) [Vol rate/Area] 73 mL/min/{1.73_m2} Normal >60 [facility] Comment on above: Result Comment: mL/m in/1.73m2 CKD-EPI Creatinine Equation (2020) Performed By: #### L 501.9985, L500.4050, L501.2300, L100.0100 ####[facility] [address] [place], [address] Globulin (S) [Mass/Vol] 3.5 g/dL Normal 2.2-4.2 [facility] Comment on above: Performed By: #### L 501.9985, L500.4050, L501.2300, L100.0100 ####[facility] [address] [place], [address] Glucose [Mass/Vol] 324 mg/dL High 70-99 [facility] Comment on above: Performed By: #### L 501.9985, L500.4050, L501.2300, L100.0100 ####[facility] [address] [place], [address] Potassium [Moles/Vol] 4.3 mmol/L Normal 3.3-5.1 [facility] Comment on above: Performed By: #### L 501.9985, L500.4050, L501.2300, L100.0100 ####[facility] [address] [place], [address] Sodium [Moles/Vol] 134 mmol/L Normal 133-145 [facility] Comment on above: Performed By: #### L 501.9985, L500.4050, L501.2300, L100.0100 ####[facility] [address] [place], [address] T PROT 7.6 g/dL Normal 5.9-8.4 [facility] Comment on above: Performed By: #### L 501.9985, L500.4050, L501.2300, L100.0100 ####[facility] [address] [place], [address] Urea nitrogen [Mass/Vol] 27 mg/dL High 4-19 [facility] Comment on above: Performed By: #### L 501.9985, L500.4050, L501.2300, L100.0100 ####[facility] [address] [place], [address] Eosinophil percentageOrdered By: Setve Donald on 06-19-2024 Eosinophils/100 WBC (Bld) 0.0 % 0-5 [facility] Hemoglobin A1con 06-19-2024 HbA1c (Bld) [Mass fraction] 12.4 % Normal <=5.6 [facility] Comment on above: Performed By: #### L 501.9985, L500.4050, L501.2300, L100.0100 ####[facility] [address] [place], [address] Hemoglobin A1c percentageOrd ered By: Steve Donald on 06-19-2024 HbA1c (Bld) [Mass fraction] 12.4 % >5.7 [facility] Immature granulocytes/100 WB C Auto (Bld)Ordered By: Steve Donald on 06-19-2024 Immature granulocytes/100 WBC (Bld) 0.700 % 0.0-0.9 [facility] Monocyte percentageOrdered B y: Steve Donald on 06-19-2024 Monocytes/100 WBC (Bld) 3.2 % 0-10 [facility] Neutrophil percentageOrdered By: Steve Donald on 06-19-2024 Neutrophils/100 WBC (Bld) 86.2 % High 47-70 [facility] No Panel InformationOrdered By: Steve Donald on 06-19-2024 26 U/L <38 [facility] Phosphoruson 06-19-2024 Phosphate [Mass/Vol] 4.4 mg/dL Normal 2.7-4.5 [facility] Comment on above: Performed By: #### L 501.9985, L500.4050, L501.2300, L100.0100 ####[facility] [address] [place], [address] Serum globulin measurementOr dered By: Steve Donald on 06-19-2024 Globulin (S) [Mass/Vol] 3.5 g/dL 2.2-4.2 [facility] Serum or plasma alanine martino otransferase (ALT) measurementOrdered By: Steve Donald on 06-19-2024 ALT [Catalytic activity/Vol] 38 U/L <47 [facility] Serum or plasma albumin brenda urement (mass/volume)Ordered By: Steve Donald on 06-19-2024 Albumin [Mass/Vol] 4.1 g/dL 3.4-4.8 [facility] Serum or plasma albumin/glob ulin mass ratioOrdered By: Steve Donald on 06-19-2024 Albumin/Globulin [Mass ratio] 1.2 {ratio} 0.9-2.4 [facility] Serum or plasma alkaline yulia sphatase measurementOrdered By: Steve Donald on 06-19-2024 ALP [Catalytic activity/Vol] 89 U/L 40-129 [facility] Total proteinOrdered By: Sidney Donald on 06-19-2024 Protein [Mass/Vol] 7.6 g/dL 5.9-8.4 [facility] Assessment of wrist artery p atency prior to arterial punctureOrdered By: Steve Donald on 06-18-2024 Arterial patency Wrist artery --pre arterial puncture Positive [facility] Bedside Glucoseon 06-18-2024 FINGERSTICK GLU 434 mg/dL High 74-106 [facility] Comment on above: Result Comment: SNEHA GEMENT OF PATIENT CARE PER NURSING PROTOCOL Performed By: #### L 501.080 ####[facility] [address] [place], [address] FINGERSTICK GLU 429 mg/dL High 74-106 [facility] Comment on above: Result Comment: Dr Manjit solis FollowedMANAGEMENT OF PATIENT CARE PER NURSING PROTOCOL Performed By: #### L 501.080 ####[facility] [address] [place], [address] FINGERSTICK GLU 321 mg/dL High 74-106 [facility] Comment on above: Result Comment: SNEHA GEMENT OF PATIENT CARE PER NURSING PROTOCOL Performed By: #### L 501.080 ####[facility] [address] [place], [address] FINGERSTICK GLU 282 mg/dL High 74-106 [facility] Comment on above: Result Comment: SNEHA GEMENT OF PATIENT CARE PER NURSING PROTOCOL Performed By: #### L 501.080 ####[facility] [address] [place], [address] Bilirubin Test strip Ql (U)O rdered By: Steve Donald on 06-18-2024 Bilirubin Ql (U) Negative Negative [facility] Positive Normal [facility] Comment on above: Performed By: #### L 9000.0800 ####[facility] [address] [place], [address] Base excess Calc (Bld) [Moles/Vol] 2 mmol/L Normal -2 to +2 [facility] Comment on above: Performed By: #### L 9000.0800 ####[facility] [address] [place], [address] Blood Gas Type ART Normal [facility] Comment on above: Performed By: #### L 9000.0800 ####[facility] [address] [place], [address] CO2 [Moles/Vol] 28 mmol/L Normal [facility] Comment on above: Performed By: #### L 9000.0800 ####[facility] [address] [place], [address] Comment 148 12 30% Normal [facility] Comment on above: Performed By: #### L 0.0800 ####[facility] [address] [place], [address] FI02 30.0 Normal [facility] Comment on above: Performed By: #### L 9000.0800 ####[facility] [address] [place], [address] HCO3 (Bld) [Moles/Vol] 26.7 mmol/L High 22-26 [facility] Comment on above: Performed By: #### L 9000.0800 ####[facility] [address] [place], [address] Mode Not entered Normal [facility] Comment on above: Performed By: #### L 9000.0800 ####[facility] [address] [place], [address] O2 Delivery Dev BiPAP Normal [facility] Comment on above: Performed By: #### L 9000.0800 ####[facility] [address] [place], [address] pCO2 41.5 mmHg Normal 35-45 [facility] Comment on above: Performed By: #### L 9000.0800 ####[facility] [address] [place], [address] pH (Bld) 7.42 [pH] Normal 7.35-7.45 [facility] Comment on above: Performed By: #### L 9000.0800 ####[facility] [address] [place], [address] PO2 73 mmHG Low 75-100 [facility] Comment on above: Performed By: #### L 9000.0800 ####[facility] [address] [place], [address] SITE R Radial Normal [facility] Comment on above: Performed By: #### L 9000.0800 ####[facility] [address] [place], [address] SO2 95 Normal 95-99 [facility] Comment on above: Performed By: #### L 9000.0800 ####[facility] [address] [place], [address] Blood base excess determinat ionOrdered By: Steve Donald on 06-18-2024 Base excess Calc (BldV) [Moles/Vol] 2 mmol/L -2-2 [facility] Blood bicarbonate measuremen tOrdered By: Steve Donald on 06-18-2024 HCO3 (Bld) [Moles/Vol] 26.7 mmol/L High 22-26 [facility] CTA Chest W/WO Contraston CTA Chest W/WO Contrast Normal [facility] Consultation - Cardiologyon 06-18-2024 Consultation - Cardiology Normal [facility] Echo Complete W/ Contraston 06-18-2024 Echo Complete W/ Contrast Normal [facility] Emergency Department Summary on 06-18-2024 Emergency Department Summary Normal [facility] H AND P Exam - Hospitaliston 06-18-2024 H&P Exam - Hospitalist Normal [facility] Influenza virus A and B and SARS-CoV-2 (COVID-19) and Respiratory syncytial virus RNAOrdered By: Jevon Osorio on 06-18-2024 SARS-CoV-2 (COVID-19) RNA HAYDER+probe Ql (Unsp spec) [facility] Ketones Test strip Ql (U)Ord ered By: Steve Donald on 06-18-2024 Ketones Ql (U) Negative Negative [facility] L499.0042on 06-18-2024 Trop T High Sen 84 ng/L Invalid Interpretation Code <=22 [facility] Comment on above: Result Comment: Crit ical Result(s) Called at: 0219 by:??TAYLORURNS TO EFINKResults read back by same. Performed By: #### L 499.0042 ####[facility] [address] [place], [address] L499.0043on 06-18-2024 Trop T High Sen 88 ng/L Invalid Interpretation Code <=22 [facility] Comment on above: Result Comment: Crit ical Result(s) Called at 0334: by: NARAYAN TOEAFFOLTER??Results read back by same. Performed By: #### L 499.0043 ####[facility] [address] [place], [address] L503.7505on 06-18-2024 Natriuretic peptide B (Bld) [Mass/Vol] 2490 pg/mL High <=900 [facility] Comment on above: Result Comment: Hear t Failure Unlikely: < 300 pg/mLHeart Failure Likely< 50 Years: > 450 pg/mL50-75 Years: > 900 pg/mL>75 Years: > 1800 pg/mL Performed By: #### L 503.7505 ####[facility] [address] [facility] [address] M100.678on 06-18-2024 M100.678 SARS-CoV-2 (COVID 19 ) Negative INFLUENZA A Negative INFLUENZA B Negative RSV PCR Negative Normal [facility] Comment on above: Performed By: #### M 100.678 ####[facility] [address] [place], [address] Magnesiumon 06-18-2024 Magnesium [Mass/Vol] 2.0 mg/dL Normal 1.5-2.2 [facility] Comment on above: Performed By: #### L 501.5200, L501.9520 ####[facility] [address] [facility] [id number] Magnesium measurement (mass/ volume)Ordered By: Steve Donald on 06-18-2024 Magnesium (Unsp spec) [Mass/Vol] 2.0 mg/dL 1.5-2.2 [facility] Measurement, pHOrdered By: Jovana Donald on 06-18-2024 pH (Unsp spec) 7.42 [pH] 7.35-7.45 [facility] Mucus LM Ql (Urine sed)Order ed By: Steve Donald on 06-18-2024 Mucus Ql (Urine sed) 0 SEEN /hpf [facility] Nitrite Test strip Ql (U)Ord ered By: Steve Donald on 06-18-2024 Nitrite Ql (U) Negative Negative [facility] No Panel InformationOrdered By: Steve Donald on 06-18-2024 ART [facility] R Radial [facility] Not entered [facility] BiPAP [facility] 17/11 12 30% [facility] Protein Test strip Ql (U)Ord ered By: Steve Donald on 06-18-2024 Protein Ql (U) Negative Negative [facility] RESPIRATORY PANEL MOLECULARo n 06-18-2024 RP PANEL Normal [facility] Comment on above: Performed By: #### M 100.638 ####[facility] [address] [place], [place], [id number] Respiratory pathogens detect ion panel by molecular detection methodOrdered By: Steve Donald on 06-18-2024 Respiratory pathogens DNA and RNA panel HAYDER+probe (Resp) [facility] Squamous epithelial cells de tection in urine sediment by light microscopyOrdered By: Steve Donald on 06-18-2024 Epithelial cells.squamous LM Ql (Urine sed) 0-5 SEEN /hpf 0-5 [facility] TSH DL <= 0.005 mIU/L QnOrde red By: Steve Donald on 06-18-2024 TSH Qn 0.897 uIU/mL 0.300-4.20 0 [facility] Thyroid Stim Hormone (TSH)on 06-18-2024 TSH 0.897 uIU/mL Normal 0.300-4.20 0 [facility] Comment on above: Performed By: #### L 501.5200, L501.9520 ####[facility] [address] [place], [address] Total carbon dioxide measure mentOrdered By: Steve Donald on 06-18-2024 CO2 [Moles/Vol] 28 mmol/L [facility] Troponin T.cardiac [Mass/vol ume] in Serum or Plasma by High sensitivity methodOrdered By: Jevon Osorio on 06-18-2024 Troponin T.cardiac High sensitivity method [Mass/Vol] 88 ng/L High <22 [facility] Troponin T.cardiac High sensitivity method [Mass/Vol] 84 ng/L High <22 [facility] Urinalysis, Completeon 06-18 BACTERIA RARE Normal None Seen [facility] Comment on above: Order Comment: CLEAN CATCH Performed By: #### L 400.0001 ####[facility] [address] [place], [address] EPI,SQUAMOUS 0-5 SEEN Normal 0-5 [facility] Comment on above: Order Comment: CLEAN CATCH Performed By: #### L 400.0001 ####[facility] [address] [place], [address] RBC 0 SEEN Normal 0-5 [facility] Comment on above: Order Comment: CLEAN CATCH Performed By: #### L 400.0001 ####[facility] [address] [place], [address] WBC 0-5 SEEN Normal 0-5 [facility] Comment on above: Order Comment: CLEAN CATCH Performed By: #### L 400.0001 ####[facility] [address] [place], [address] BILIRUBIN URINE Negative Normal Negative [facility] Comment on above: Order Comment: CLEAN CATCH Performed By: #### L 400.0001 ####[facility] [address] [place], [address] Clarity (U) Clear Normal Clear [facility] Comment on above: Order Comment: CLEAN CATCH Performed By: #### L 400.0001 ####[facility] [address] [place], [address] Color (U) Yellow Normal Yellow [facility] Comment on above: Order Comment: CLEAN CATCH Performed By: #### L 400.0001 ####[facility] [address] [facility] [address] GLUCOSE, UR 1000 mg/dl Abnormal Normal [facility] Comment on above: Order Comment: CLEAN CATCH Performed By: #### L 400.0001 ####[facility] [address] [facility] [address] KETONE UR Negative Normal Negative [facility] Comment on above: Order Comment: CLEAN CATCH Performed By: #### L 400.0001 ####[facility] [address] [place] [id number] LEUK ESTERASE Negative Normal Negative [facility] Comment on above: Order Comment: CLEAN CATCH Performed By: #### L 400.0001 ####[facility] [address] [place] [id number] Nitrite Ql (U) Negative Normal Negative [facility] Comment on above: Order Comment: CLEAN CATCH Performed By: #### L 400.0001 ####[facility] [address] [facility] [address] OCCULT BLOOD-UR Negative Normal Negative [facility] Comment on above: Order Comment: CLEAN CATCH Performed By: #### L 400.0001 ####[facility] [address] [facility] [address] pH UR 6.0 Normal 5.0 - 8.0 [facility] Comment on above: Order Comment: CLEAN CATCH Performed By: #### L 400.0001 ####[facility] [address] [facility] [address] PROT DIPSTX Negative Normal Negative [facility] Comment on above: Order Comment: CLEAN CATCH Performed By: #### L 400.0001 ####[facility] [address] [place], [address] SP.GR. DIPSTX 1.010 Normal 1.002-1.03 0 [facility] Comment on above: Order Comment: CLEAN CATCH Performed By: #### L 400.0001 ####[facility] [address] [place], [address] UROBILI Normal Normal Normal [facility] Comment on above: Order Comment: CLEAN CATCH Performed By: #### L 400.0001 ####[facility] [address] [place], [address] Mucus Ql (Urine sed) 0 SEEN Normal [facility] Comment on above: Order Comment: CLEAN CATCH Performed By: #### L 400.0001 ####[facility] [address] [place], [address] Urine clarityOrdered By: Sidney Donald on 06-18-2024 Clarity (U) Clear Clear [facility] Urine color determinationOrd ered By: Steve Donald on 06-18-2024 Color (U) Yellow Yellow [facility] Urine glucose detectionOrder ed By: Steve Donald on 06-18-2024 Glucose Ql (U) 1000 mg/dl High Normal [facility] Urine leukocyte esterase det ection by dipstickOrdered By: Steve Donald on 06-18-2024 Leukocyte esterase Test strip Ql (U) Negative Negative [facility] Urine pHOrdered By: Steve caraballo on 06-18-2024 pH (U) 6.0 [pH] 5.0 - 8.0 [facility] Urine sediment bacteria coun t by microscopy (number/high power field)Ordered By: Steve Donald on 06-18-2024 Bacteria LM.HPF (Urine sed) [#/Area] RARE /hpf None Seen [facility] Urine specific gravity measu rementOrdered By: Steve Donald on 06-18-2024 Specific gravity (U) [Rel density] 1.010 1.002-1.03 0 [facility] Urine urobilinogen measureme ntOrdered By: Steve Donald on 06-18-2024 Urobilinogen Ql (U) Normal mg/dl Normal [facility] White blood cell countOrdere d By: Steve Donald on 06-18-2024 White blood cell count 0-5 SEEN /hpf 0-5 [facility] 12 Lead EKGon 06-17-2024 12 Lead EKG Normal [facility] Basic Metabolic Profile (BMP )on 06-17-2024 BUN/CRE 18.7 RATIO Normal 10-20 [facility] Comment on above: Performed By: #### L 501.4021, L100.0100, L500.2500 ####[facility] [address] [place], [address] Calcium [Mass/Vol] 9.4 mg/dL Normal 7.6-11.0 [facility] Comment on above: Performed By: #### L 501.4021, L100.0100, L500.2500 ####[facility] [address] [place], [address] Chloride [Moles/Vol] 100 mmol/L Normal 98-108 [facility] [place] Comment on above: Performed By: #### L 501.4021, L100.0100, L500.2500 ####[facility] [address] [place], [address] CO2 [Moles/Vol] 21.0 mmol/L Normal 21.0-32.0 [facility] Comment on above: Performed By: #### L 501.4021, L100.0100, L500.2500 ####[facility] [address] [place], [address] Creatinine [Mass/Vol] 0.94 mg/dL Normal 0.70-1.20 [facility] Comment on above: Performed By: #### L 501.4021, L100.0100, L500.2500 ####[facility] [address] [place], [address] GAP 14 Normal 5-15 [facility] Comment on above: Performed By: #### L 501.4021, L100.0100, L500.2500 ####[facility] [address] [place], [address] GFR/1.73 sq M.predicted among non-blacks MDRD (S/P/Bld) [Vol rate/Area] 91 mL/min/{1.73_m2} Normal >60 [facility] Comment on above: Result Comment: mL/m in/1.73m2 CKD-EPI Creatinine Equation (2020) Performed By: #### L 501.4021, L100.0100, L500.2500 ####[facility] [address] [place], [address] Glucose [Mass/Vol] 438 mg/dL High 70-99 [facility] Comment on above: Performed By: #### L 501.4021, L100.0100, L500.2500 ####[facility] [address] [place], [address] Potassium [Moles/Vol] 4.5 mmol/L Normal 3.3-5.1 [facility] Comment on above: Performed By: #### L 501.4021, L100.0100, L500.2500 ####[facility] [address] [place], [address] Sodium [Moles/Vol] 134 mmol/L Normal 133-145 [facility] Comment on above: Performed By: #### L 501.4021, L100.0100, L500.2500 ####[facility] [address] [place], [address] Urea nitrogen [Mass/Vol] 18 mg/dL Normal 4-19 [facility] Comment on above: Performed By: #### L 501.4021, L100.0100, L500.2500 ####[facility] [address] [place], [address] CBC W/Diff, Automatedon - Absolute Lymph 2.17 X10 3/uL Normal 0.83-4.51 [facility] Comment on above: Performed By: #### L 501.4021, L100.0100, L500.2500 ####[facility] [address] [place], [address] Absolute Neut 2.9 X10 3/uL Normal 2.0-7.7 [facility] Comment on above: Performed By: #### L 501.4021, L100.0100, L500.2500 ####[facility] [address] [place], [address] Basophils/100 WBC (Bld) 0.3 % Normal 0-1 [facility] Comment on above: Performed By: #### L 501.4021, L100.0100, L500.2500 ####[facility] [address] [place], [address] Eosinophils/100 WBC (Bld) 2.2 % Normal 0-5 [facility] Comment on above: Performed By: #### L 501.4021, L100.0100, L500.2500 ####[facility] [address] [place], [address] Erythrocyte distribution width (RBC) [Ratio] 13.1 % Normal 11.6-14.6 [facility] Comment on above: Performed By: #### L 501.4021, L100.0100, L500.2500 ####[facility] [address] [place], [address] Hematocrit (Bld) [Volume fraction] 46.2 % Normal 40-54 [facility] Comment on above: Performed By: #### L 501.4021, L100.0100, L500.2500 ####[facility] [address] [place], [address] Hemoglobin (Bld) [Mass/Vol] 15.2 g/dL Normal 13.0-16.5 [facility] Comment on above: Performed By: #### L 501.4021, L100.0100, L500.2500 ####[facility] [address] [place], [address] IG% 0.200 Normal 0.0-0.9 [facility] Comment on above: Result Comment: IG% - Immature Granulocytes (promyelocytes, myelocytes andmetamyelocytes) > 1% indicates that a LEFT SHIFT is Present. Performed By: #### L 501.4021, L100.0100, L500.2500 ####[facility] [address] [place], [address] Lymphocytes/100 WBC (Bld) 37.2 % Normal 19-41 [facility] Comment on above: Performed By: #### L 501.4021, L100.0100, L500.2500 ####[facility] [address] [place], [address] MCH (RBC) [Entitic mass] 31.3 pg Normal 27.0-32.0 [facility] Comment on above: Performed By: #### L 501.4021, L100.0100, L500.2500 ####[facility] [address] [place], [address] MCHC (RBC) [Mass/Vol] 32.9 g/dL Normal 32-36 [facility] Comment on above: Performed By: #### L 501.4021, L100.0100, L500.2500 ####[facility] [address] [place], [address] MCV (RBC) [Entitic vol] 95.1 fL High 80-94 [facility] Comment on above: Performed By: #### L 501.4021, L100.0100, L500.2500 ####[facility] [address] [place], [address] Monocytes/100 WBC (Bld) 10.3 % High 0-10 [facility] Comment on above: Performed By: #### L 501.4021, L100.0100, L500.2500 ####[facility] [address] [place], [address] Neutrophils/100 WBC (Bld) 49.8 % Normal 47-70 [facility] Comment on above: Performed By: #### L 501.4021, L100.0100, L500.2500 ####[facility] [address] [place], [address] Nucleated RBC (Bld) [#/Vol] 0 10*3/uL Normal 0-5 [facility] Comment on above: Performed By: #### L 501.4021, L100.0100, L500.2500 ####[facility] [address] [place], [address] Platelet mean volume (Bld) [Entitic vol] 10.3 fL Normal 6.2-12.0 [facility] Comment on above: Performed By: #### L 501.4021, L100.0100, L500.2500 ####[facility] [address] [place], [address] Platelets (Bld) [#/Vol] 244 10*3/uL Normal 150-450 [facility] Comment on above: Performed By: #### L 501.4021, L100.0100, L500.2500 ####[facility] [address] [place], [address] RBC (Bld) [#/Vol] 4.86 10*6/uL Normal 4.6-6.2 [facility] Comment on above: Performed By: #### L 501.4021, L100.0100, L500.2500 ####[facility] [address] [place], [address] RDW SD 45.7 fl High 35.1-43.9 [facility] Comment on above: Performed By: #### L 501.4021, L100.0100, L500.2500 ####[facility] [address] [place], [address] WBC (Bld) [#/Vol] 5.8 10*3/uL Normal 4.4-11.0 [facility] Comment on above: Performed By: #### L 501.4021, L100.0100, L500.2500 ####[facility] [address] [place], [address] Chest 1 View (Portable)on Chest 1 View (Portable) Normal [facility] L501.4021on 06-17-2024 Trop T High Sen 76 ng/L Invalid Interpretation Code <=22 [facility] Comment on above: Result Comment: Crit ical Result(s) Called at: 2342 by: NARAYAN LAMBERT??Results read back by same. Performed By: #### L 501.4021, L100.0100, L500.2500 ####[facility] [address] [place], [address] No Panel InformationOrdered By: ED PROVIDER on 06-17-2024 76 ng/L High <22 [facility] No Panel InformationOrdered By: Jevon Osorio on 06-17-2024 2490 pg/mL High <900 [facility] Ankle Brachial Indexon 06-13 Ankle Brachial Index Normal [facility] [place] Arterial Doppler ultrasound reportOrdered By: Saúl Flowers on 06-13-2024 Study report [facility] [address] [place] [address] US Art Duplex Unilat Lower Ext 06/13/24 1426 MR#: [id number] Acct: [id number] Name: JAYLEN MEJIA . Rep #:[id number] : 1960 64 From: Saúl Whaley Attending Dr: NILSON Heck Stat us: [facility] Ordering Dr: Lubna Manley Date: Location: [facility] Sex: M C Admitted: Reason For Study Reason For Study: Atherectomy/Angioplasty Rt Popliteal Artery Right Velocities Ext. Iliac [...] Physician: Xiang Rogers Performed By: Solange Pena, RDKIRAN, RVT 06/13/24 1633 Date _ Saúl Flowers MD CC: NILSON Heck; Dr. Xiang Rogers, DO ~ Date Dictated: 06/13/24 1426 Date Transcribed: 06/13/24 1633 Supervisor Logging: Signed [facility] Work Phone: Arterial study reportOrdered By: Saúl Flowers on 06-13-2024 Noninvasive arteriosclerosis study report [facility] [address] [place] [address] Ankle Brachial Index 06/13/24 1351 MR#: [id number] Acct: [id number] Name: JAYLEN MEJIA Hannah Schmitt. Rep #:[id number] 1960 64 From: Saúl Whaley Attending Dr: NILSON Heck Stat us: REG CLI Ordering Dr: Lubna Manley Date: Location: [facility] Sex: M C Admitted: Reason For Study Reason For Study: s/p Rt Popliteal atherectomy/angioplasty Procedure A bilateral lower extremity continuous wave [...] Dictated: 06/13/24 1351 Date Transcribed: 06/13/24 1630 Supervisor Logging: Signed [facility] Work Phone: US Art Duplex Unilat Lower E xton 06-13-2024 US Art Duplex Unilat Lower Ext Normal [facility] Chest 1 View (Portable)on Chest 1 View (Portable) Normal [facility] Emergency Department Summary on 05-21-2024 Emergency Department Summary Normal [facility] Influenza virus A and B and SARS-CoV-2 (COVID-19) and Respiratory syncytial virus RNAOrdered By: Saúl Aguilar on 05-21-2024 SARS-CoV-2 (COVID-19) RNA HAYDER+probe Ql (Unsp spec) [facility] M100.678on 05-21-2024 M100.678 SARS-CoV-2 (COVID 19 ) Negative INFLUENZA A Negative INFLUENZA B Negative RSV PCR Negative Normal [facility] Comment on above: Performed By: #### M 100.678 ####[facility] [address] [place], [address] MR/BMS.BVSon 05-17-2024 MR/BMS.BVS Normal [facility] Echo Complete W/ Contraston 05-09-2024 Echo Complete W/ Contrast Normal [facility] Internal Medicine Office Vis iton 05-03-2024 Internal Medicine Office Visit Normal [facility] Laboratory - Hematology and Cell countson 05-03-2024 HbA1c (Bld) [Mass fraction] 11.4 % High 4.2-6.3 [facility] ACT Activated Clotting Timeo n 04-20-2024 ACTk CLOT TIME 222 sec High 74-137 [facility] Comment on above: Performed By: #### L 9100.0100 ####[facility] [address] [place], [address] Activated clotting timeOrder ed By: Saúl Flowers on 04-20-2024 Activated Clotting Time 222 sec High 74-137 [facility] Basic Metabolic Profile (BMP )on 04-20-2024 BUN/CRE 15.1 RATIO Normal 10-20 [facility] Comment on above: Performed By: #### L 500.2500, L100.0500 ####[facility] [address] [place], [address] CA,Total 9.3 mg/dL Normal 8.5-10.1 [facility] Comment on above: Performed By: #### L 500.2500, L100.0500 ####[facility] [address] [place], [address] Chloride [Moles/Vol] 103 mmol/L Normal 98-107 [facility] Comment on above: Performed By: #### L 500.2500, L100.0500 ####[facility] [address] [place], [address] CO2 [Moles/Vol] 26.0 mmol/L Normal 21.0-32.0 [facility] Comment on above: Performed By: #### L 500.2500, L100.0500 ####[facility] [address] [place], [address] Creatinine [Mass/Vol] 1.06 mg/dL Normal 0.70-1.30 [facility] Comment on above: Result Comment: The validity of the calculated GFR GFRAA in patients over70 years has not been determined. Clinical correlation isessential. Performed By: #### L 500.2500, L100.0500 ####[facility] [address] [place], [address] ECRCL 78.67 ml/min Normal [facility] Comment on above: Performed By: #### L 500.2500, L100.0500 ####[facility] [address] [place], [address] EST GFR - AA 90 mL/min Normal >60 [facility] Comment on above: Result Comment: Afri can [place] Islander GFR Calc Performed By: #### L 500.2500, L100.0500 ####[facility] [address] [place], [address] GAP 6 Normal 5-15 [facility] Comment on above: Performed By: #### L 500.2500, L100.0500 ####[facility] [address] [place], [address] GFR/1.73 sq M.predicted among non-blacks MDRD (S/P/Bld) [Vol rate/Area] 75 mL/min/{1.73_m2} Normal >60 [facility] Comment on above: Result Comment: Non- GFR Calc Performed By: #### L 500.2500, L100.0500 ####[facility] [address] [place], [address] Glucose [Mass/Vol] 228 mg/dL High 74-106 [facility] Comment on above: Result Comment: Gluc ose result greater than or equal to 200 mg/dLsuggests DIABETES MELLITUS per A.D.A. criteria. Performed By: #### L 500.2500, L100.0500 ####[facility] [address] [place], [address] Potassium [Moles/Vol] 4.3 mmol/L Normal 3.5-5.1 [facility] Comment on above: Performed By: #### L 500.2500, L100.0500 ####[facility] [address] [place], [address] Sodium [Moles/Vol] 135 mmol/L Low 136-145 [facility] Comment on above: Performed By: #### L 500.2500, L100.0500 ####[facility] [address] [place], [address] Urea nitrogen [Mass/Vol] 16 mg/dL Normal 7-18 [facility] Comment on above: Performed By: #### L 500.2500, L100.0500 ####[facility] [address] [place], [address] Blood urea nitrogen (BUN)/cr eatinine ratioOrdered By: Saúl Flowers on 04-20-2024 Urea nitrogen/Creatinine [Mass ratio] 15.1 mg/mg 10-20 [facility] CBC-Complete Blood Cnt No Di ffon 04-20-2024 Erythrocyte distribution width (RBC) [Ratio] 12.9 % Normal 11.6-14.6 [facility] Comment on above: Performed By: #### L 500.2500, L100.0500 ####[facility] [address] [place], [address] Hematocrit (Bld) [Volume fraction] 52.2 % Normal 40-54 [facility] Comment on above: Performed By: #### L 500.2500, L100.0500 ####[facility] [address] [place], [address] Hemoglobin (Bld) [Mass/Vol] 17.8 g/dL High 13.0-16.5 [facility] Comment on above: Performed By: #### L 500.2500, L100.0500 ####[facility] [address] [place], [address] MCH (RBC) [Entitic mass] 31.7 pg Normal 27.0-32.0 [facility] Comment on above: Performed By: #### L 500.2500, L100.0500 ####[facility] [address] [place], [address] MCHC (RBC) [Mass/Vol] 34.1 g/dL Normal 32-36 [facility] Comment on above: Performed By: #### L 500.2500, L100.0500 ####[facility] [address] [place], [address] MCV (RBC) [Entitic vol] 92.9 fL Normal 80-94 [facility] Comment on above: Performed By: #### L 500.2500, L100.0500 ####[facility] [address] [place], [address] Platelet mean volume (Bld) [Entitic vol] 9.5 fL Normal 6.2-12.0 [facility] Comment on above: Performed By: #### L 500.2500, L100.0500 ####[facility] [address] [place], [address] Platelets (Bld) [#/Vol] 271 10*3/uL Normal 150-450 [facility] Comment on above: Performed By: #### L 500.2500, L100.0500 ####[facility] [address] [place], [address] RBC (Bld) [#/Vol] 5.62 10*6/uL Normal 4.6-6.2 [facility] Comment on above: Performed By: #### L 500.2500, L100.0500 ####[facility] [address] [place], [address] RDW SD 43.8 fl Normal 35.1-43.9 [facility] Comment on above: Performed By: #### L 500.2500, L100.0500 ####[facility] [address] [place], [place], [address] WBC (Bld) [#/Vol] 8.5 10*3/uL Normal 4.4-11.0 [facility] Comment on above: Performed By: #### L 500.2500, L100.0500 ####[facility] [address] [place], [address] Carbon dioxide measurementOr dered By: Saúl Flowers on 04-20-2024 CO2 [Moles/Vol] 26.0 mmol/L 21.0-32.0 [facility] Chloride measurementOrdered By: Saúl Flowers on 04-20-2024 Chloride [Moles/Vol] 103 mmol/L 98-107 [facility] Erythrocyte distribution wid th ratioOrdered By: Saúl Flowers on 04-20-2024 Erythrocyte distribution width (RBC) [Ratio] 12.9 % 11.6-14.6 [facility] Erythrocyte distribution wid th standard deviationOrdered By: Saúl Flowers on 04-20-2024 Erythrocyte distribution width (RBC) [Entitic vol] 43.8 fL 35.1-43.9 [facility] Estimated glomerular filtrat ion rate (GFR) AmericanOrdered By: Saúl Flowers on 04-20-2024 Estimated GFR (MDRD) Amer 90 mL/min >60 [facility] Comment on above: GFR Calc Estimation of creatinine john aranceOrdered By: Saúl Flowers on 04-20-2024 Estimated Creatinine Clearance Calc 78.67 ml/min [facility] Glomerular filtration rate ( GFR) estimationOrdered By: Saúl Flowers on 04-20-2024 Estimated GFR (MDRD) Non-Af Amer 75 mL/min >60 [facility] Comment on above: Non- GFR Calc Glucose measurementOrdered B y: Saúl Flowers on 04-20-2024 Glucose [Mass/Vol] 228 mg/dL High 74-106 [facility] Comment on above: Glucose result great er than or equal to 200 mg/dLsuggests DIABETES MELLITUS per A.D.A. criteria. Hematocrit Auto (Bld) [Volum e fraction]Ordered By: Saúl Flowers on 04-20-2024 Hematocrit (Bld) [Volume fraction] 52.2 % 40-54 [facility] Hemoglobin measurementOrdere d By: Saúl Flowers on 04-20-2024 Hemoglobin (Bld) [Mass/Vol] 17.8 g/dL High 13.0-16.5 [facility] MCV (mean corpuscular volume ) determinationOrdered By: Saúl Flowers on 04-20-2024 MCV (RBC) [Entitic vol] 92.9 fL 80-94 [facility] Mean corpuscular hemoglobin (MCH) determinationOrdered By: Saúl Flowers on 04-20-2024 MCH (RBC) [Entitic mass] 31.7 pg 27.0-32.0 [facility] Mean corpuscular hemoglobin concentration (MCHC) determinationOrdered By: Saúl Flowers on 04-20-2024 MCHC (RBC) [Mass/Vol] 34.1 g/dL 32-36 [facility] Mean platelet volume determi nationOrdered By: Saúl Flowers on 04-20-2024 Platelet mean volume (Bld) [Entitic vol] 9.5 fL 6.2-12.0 [facility] Operative Reporton Operative Report Normal [facility] Platelet countOrdered By: Chacho Flowers on 04-20-2024 Platelets (Bld) [#/Vol] 271 10*3/uL 150-450 [facility] Potassium measurementOrdered By: Saúl Flowers on 04-20-2024 Potassium [Moles/Vol] 4.3 mmol/L 3.5-5.1 [facility] RBC Auto (Bld) [#/Vol]Ordere d By: Saúl Flowers on 04-20-2024 RBC (Bld) [#/Vol] 5.62 10*6/uL 4.6-6.2 [facility] Serum anion gap measurementO rdered By: Saúl Flowers on 04-20-2024 Anion gap [Moles/Vol] 6 mmol/L 5-15 [facility] Serum or plasma calcium brenda urement (mass/volume)Ordered By: Saúl Flowers on 01-15-2025 Calcium [Mass/Vol] 9.3 mg/dL 8.5-10.1 [facility] Serum or plasma creatinine m easurement (mass/volume)Ordered By: Saúl Flowers on 04-20-2024 Creatinine [Mass/Vol] 1.06 mg/dL 0.70-1.30 [facility] Comment on above: The validity of the calculated GFR & GFRAA in patients over 70 years has not been determined. Clinical correlation is essential. Serum or plasma urea nitroge n measurement (mass/volume)Ordered By: Saúl Flowers on 04-20-2024 Urea nitrogen [Mass/Vol] 16 mg/dL 7-18 [facility] Sodium levelOrdered By: Saúl Flowers on 04-20-2024 Sodium [Moles/Vol] 135 mmol/L Low 136-145 [facility] White blood cell (WBC) count Ordered By: Saúl Flowers on 04-20-2024 WBC (Bld) [#/Vol] 8.5 10*3/uL 4.4-11.0 [facility] MR/BMS.BVSon 04-08-2024 MR/BMS.BVS Normal [facility] Cardiology Visit Reporton Cardiology Visit Report Normal [facility] CREATININE FINGERSTICKon CREATININE WB < 1.0 Normal 0.70-1.30 [facility] Comment on above: Performed By: #### L 9100.0200 ####[facility] [address] [facility] [place], [place], [address] EGFR WB > 60.0000 Normal >60 [facility] Comment on above: Performed By: #### L 9100.0200 ####[facility] [address] [facility] [place], [address] CTA Abd w/Runoff W/WO Contra ston 03-29-2024 CTA Abd w/Runoff W/WO Contrast Normal [facility] Creatinine measurement at be dsideOrdered By: Lubna Manley on 03-29-2024 Bedside Creatinine < 1.0 mg/dL 0.70-1.30 [facility] EGFROrdered By: Lubna Manley on 03-29-2024 Bedside Estimated GFR (eGFR) > 60.0000 mL/min >60 [facility] MR/BMS.BVSon 03-22-2024 MR/BMS.BVS Normal [facility] Lower Ext Art Exam w/o Exerc zachary 03-09-2024 Lower Ext Art Exam w/o Exercis Normal [facility] Internal Medicine Office Vis iton 02-24-2024 Internal Medicine Office Visit Normal [facility] Laboratory - Hematology and Cell countson 02-24-2024 HbA1c (Bld) [Mass fraction] 11.3 % High 4.2-6.3 [facility] MR/BMS.BVSon 02-24-2024 MR/BMS.BVS Normal [facility] Lipid Profileon 02-23-2024 Cholesterol [Mass/Vol] 238 mg/dL High 200 [facility] Comment on above: Result Comment: <200 mg/dL Desirable 200-240 mg/dL Borderline >240 mg/dL High Risk Performed By: #### L 500.3400, L500.4100 ####[facility] [address] [place], [address] Cholesterol in HDL [Mass/Vol] 38 mg/dL Low [facility] Comment on above: Result Comment: The drugs N-Acetylcysteine and Metamizole may falselydepress this assay. Reference Range HDL <40 mg/dL Low HDL Cholesterol HDL >or= 60 mg/dL High HDL Cholesterol Performed By: #### L 500.3400, L500.4100 ####[facility] [address] [place], [address] LDL TNP Normal 0-130 [facility] Comment on above: Performed By: #### L 500.3400, L500.4100 ####[facility] [address] [place], [address] Triglyceride [Mass/Vol] 607 mg/dL High [facility] Comment on above: Result Comment: The drugs N-Acetylcysteine and Metamizole may falselydepress this assay.TRIGLYCERIDE IS GREATER THAN 400 mg/dL.LDL RESULT IS INVALID AND WILL NOT BE REPORTED.Serum Triglycerides Reference Interval Normal <150 mg/dL Borderline high 150 - 199 mg/dL High 200 - 499 mg/dL Very High > or = 500 mg/dL Performed By: #### L 500.3400, L500.4100 ####[facility] [address] [place], [address] VLDL TNP Normal 5-40 [facility] Comment on above: Performed By: #### L 500.3400, L500.4100 ####[facility] [address] [place], [address] Liver Profileon 02-23-2024 Albumin [Mass/Vol] 3.8 g/dL Normal 3.2-5.0 [facility] Comment on above: Performed By: #### L 500.3400, L500.4100 ####[facility] [address] [place], [address] ALK P 69 U/L Normal 45-117 [facility] [facility] Comment on above: Performed By: #### L 500.3400, L500.4100 ####[facility] [address] [place], [address] ALT [Catalytic activity/Vol] 37 U/L Normal 16-61 [facility] Comment on above: Performed By: #### L 500.3400, L500.4100 ####[facility] [address] [place], [address] AST [Catalytic activity/Vol] 27 U/L Normal 15-37 [facility] Comment on above: Performed By: #### L 500.3400, L500.4100 ####[facility] [address] [place], [address] Bilirubin [Mass/Vol] 0.70 mg/dL Normal 0.20-1.00 [facility] [place] Comment on above: Result Comment: For patients on eltrombopag therapy, use of Dimension [place] TBIL is not recommended. Performed By: #### L 500.3400, L500.4100 ####[facility] [address] [place], [address] Bilirubin.direct [Mass/Vol] 0.16 mg/dL Normal 0.00-0.30 [facility] Comment on above: Performed By: #### L 500.3400, L500.4100 ####[facility] [address] [place], [address] Globulin (S) [Mass/Vol] 4.0 g/dL Normal 2.2-4.2 [facility] Comment on above: Performed By: #### L 500.3400, L500.4100 ####[facility] [address] [place], [address] T PROT 7.8 g/dL Normal 6.4-8.2 [facility] Comment on above: Performed By: #### L 500.3400, L500.4100 ####[facility] [address] [place], [address] MR/BMS.BVSon 01-07-2024 MR/BMS.BVS Normal [facility] Basophil percentageOrdered B y: Xiang Brown on 04-15-2023 Bilirubin [Mass/Vol] 0.60 mg/dL 0.20-1.00 [facility] [place] Comment on above: For patients on eltr ombopag therapy, use of Dimension [place] TBIL is not recommended. Chloride [Moles/Vol] 100 mmol/L 98-107 [facility] Cholesterol [Mass/Vol] 255 mg/dL <200 [facility] Comment on above: <200 mg/dL Desirable 200-240 mg/dL Borderline >240 mg/dL High Risk Glucose [Mass/Vol] 255 mg/dL 74-106 [facility] Comment on above: Glucose result great er than or equal to 200 mg/dLsuggests DIABETES MELLITUS per A.D.A. criteria. Potassium [Moles/Vol] 4.7 mmol/L 3.5-5.1 [facility] Comment on above: Slight Hemolysis, Re sult may be falsely increased. Protein [Mass/Vol] 7.7 g/dL 6.4-8.2 [facility] Sodium [Moles/Vol] 133 mmol/L 136-145 [facility] Triglyceride [Mass/Vol] 411 mg/dL <199 [facility] Comment on above: The drugs [...] 04-15-2023 ALP [Catalytic activity/Vol] 81 U/L 45-117 [facility] ALT [Catalytic activity/Vol] 40 U/L 16-61 [facility] CO2 [Moles/Vol] 28.0 mmol/L 21.0-32.0 [facility] Globulin (S) [Mass/Vol] 4.1 g/dL 2.2-4.2 [facility] Urea nitrogen/Creatinine [Mass ratio] 11.9 mg/mg 10-20 [facility] Laboratory - Hematology and Cell countson 04-15-2023 HbA1c (Bld) [Mass fraction] 10.6 % 4.2-6.3 [facility] No Panel InformationOrdered By: Xiang Rogers on 04-15-2023 Estimated GFR (MDRD) Amer 96 mL/min >60 [facility] Comment on above: GFR Calc Estimated GFR (MDRD) Non-Af Amer 79 mL/min >60 [facility] Comment on above: Non- GFR Calc Serum or plasma albumin brenda urement (mass/volume)Ordered By: Xiang Rogers on 04-15-2023 Albumin [Mass/Vol] 3.6 g/dL 3.2-5.0 [facility] Serum or plasma albumin/glob ulin mass ratioOrdered By: Xiang Rogers on 04-15-2023 Albumin/Globulin [Mass ratio] 0.9 {ratio} 0.9-2.4 [facility] Serum or plasma calcium brenda urement (mass/volume)Ordered By: Xiang Rogers on 04-15-2023 Calcium [Mass/Vol] 8.9 mg/dL 8.5-10.1 [facility] Serum or plasma cholesterol in HDL measurement (mass/volume)Ordered By: Xiang Rogers on 04-15-2023 Cholesterol in HDL [Mass/Vol] 37 mg/dL >40 [facility] Comment on above: The drugs N-Acetylcy steine and Metamizole may falsely depress this assay. Reference Range HDL <40 mg/dL Low HDL Cholesterol HDL >or= 60 mg/dL High HDL Cholesterol Serum or plasma cholesterol in VLDL measurement (mass/volume)Ordered By: Xiang Rogers on 04-15-2023 Cholesterol in VLDL [Mass/Vol] TNP [facility] Comment on above: Test not performed Serum or plasma creatinine m easurement (mass/volume)Ordered By: Xiang Rogers on 04-15-2023 Creatinine [Mass/Vol] 1.01 mg/dL 0.70-1.30 [facility] Comment on above: The validity of the calculated GFR & GFRAA in patients over 70 years has not been determined. Clinical correlation is essential. Serum or plasma low density lipoprotein (LDL) cholesterol measurement (mass/volume)Ordered By: Xiang Rogers on 04-15-2023 Cholesterol in LDL [Mass/Vol] [facility] Comment on above: Test not performed Serum or plasma urea nitroge n measurement (mass/volume)Ordered By: Xiang Rogers on 04-15-2023 Urea nitrogen [Mass/Vol] 12 mg/dL 7-18 [facility] Thin prep Papanicolaou smear with manual screeningOrdered By: Xiang Rogers on 04-15-2023 Thin prep Papanicolaou smear with manual screening 29 U/L [facility] Comment on above: Slight Hemolysis, Re sult may be falsely increased. Thin prep Papanicolaou smear with manual screening 5 5-15 [facility] Laboratory - Hematology and Cell countson 01-13-2023 HbA1c (Bld) [Mass fraction] 9.0 % 4.2-6.3 [facility] Basophil percentageOrdered B y: Dean Pena on 06-02-2022 Bilirubin [Mass/Vol] 0.50 mg/dL 0.20-1.00 [facility] Comment on above: For patients on eltr ombopag therapy, use of Dimension [place] TBIL is not recommended. Cholesterol [Mass/Vol] 326 mg/dL <200 [facility] Comment on above: <200 mg/dL Desirable 200-240 mg/dL Borderline >240 mg/dL High Risk Protein [Mass/Vol] 7.5 g/dL 6.4-8.2 [facility] Triglyceride [Mass/Vol] 883 mg/dL <199 [facility] Comment on above: The drugs [...] on 06-02-2022 Bilirubin.direct [Mass/Vol] 0.07 mg/dL 0.00-0.30 [facility] Laboratory - Chemistry and C hemistry - challengeOrdered By: Dean Pena on 06-02-2022 ALP [Catalytic activity/Vol] 68 U/L 45-117 [facility] ALT [Catalytic activity/Vol] 35 U/L 16-61 [facility] Globulin (S) [Mass/Vol] 3.9 g/dL 2.2-4.2 [facility] Serum or plasma albumin brenda urement (mass/volume)Ordered By: Dean Pena on 06-02-2022 Albumin [Mass/Vol] 3.6 g/dL 3.2-5.0 [facility] Serum or plasma cholesterol in HDL measurement (mass/volume)Ordered By: Dean Pena on 06-02-2022 Cholesterol in HDL [Mass/Vol] 36 mg/dL >40 [facility] Comment on above: The drugs N-Acetylcy steine and Metamizole may falsely depress this assay. Reference Range HDL <40 mg/dL Low HDL Cholesterol HDL >or= 60 mg/dL High HDL Cholesterol Serum or plasma cholesterol in VLDL measurement (mass/volume)Ordered By: Dean Pena on 06-02-2022 Cholesterol in VLDL [Mass/Vol] TNP [facility] Comment on above: Test not performed Serum or plasma low density lipoprotein (LDL) cholesterol measurement (mass/volume)Ordered By: Dean Pena on 06-02-2022 Cholesterol in LDL [Mass/Vol] TNP [facility] Comment on above: Test not performed Thin prep Papanicolaou smear with manual screeningOrdered By: Dean Pena on 06-02-2022 Thin prep Papanicolaou smear with manual screening 26 U/L 15-37 [facility] Comment on above: Moderate Hemolysis, Result may be falsely increased. Absolute lymphocyte countOrd ered By: Dr. Johnson on 04-19-2022 Lymphocytes Auto (Unsp spec) [#/Vol] 1.77 10*3/uL 0.83-4.51 [facility] Basophil percentageOrdered B y: Dr. Fields on 04-19-2022 Chloride [Moles/Vol] 104 mmol/L 98-107 [facility] Glucose [Mass/Vol] 235 mg/dL 74-106 [facility] Comment on above: Glucose result great er than or equal to 200 mg/dLsuggests DIABETES MELLITUS per A.D.A. criteria. Potassium [Moles/Vol] 4.1 mmol/L 3.5-5.1 [facility] Sodium [Moles/Vol] 137 mmol/L 136-145 [facility] Basophil percentageOrdered B y: Dr. Johnson on 04-19-2022 Basophils/100 WBC (Bld) 0.5 % 0-1 [facility] Eosinophils/100 WBC (Bld) 4.3 % 0-5 [facility] Neutrophils (Bld) [#/Vol] 3.9 10*3/uL 2.0-7.7 [facility] Neutrophils/100 WBC (Bld) 59.9 % 47-70 [facility] WBC (Bld) [#/Vol] 6.6 10*3/uL 4.4-11.0 [facility] Blood erythrocytes count (nu mber/volume)Ordered By: Dr. Johnson on 04-19-2022 RBC (Bld) [#/Vol] 4.82 10*6/uL 4.6-6.2 [facility] Blood hemoglobin measurement (mass/volume)Ordered By: Dr. Johnson on 04-19-2022 Hemoglobin (Bld) [Mass/Vol] 15.4 g/dL 13.0-16.5 [facility] Blood lymphocytes/100 leukoc ytesOrdered By: Dr. Johnson on 04-19-2022 Lymphocytes/100 WBC (Bld) 27.0 % 19-41 [facility] Blood monocytes/100 leukocyt esOrdered By: Dr. Johnson on 04-19-2022 Monocytes/100 WBC (Bld) 7.8 % 0-10 [facility] Blood platelet mean volumeOr dered By: Dr. Johnson on 04-19-2022 Platelet mean volume (Bld) [Entitic vol] 10.2 fL 6.2-12.0 [facility] Determination of erythrocyte mean corpuscular volume (MCV)Ordered By: Dr. Johnson on 04-19-2022 MCV (RBC) [Entitic vol] 95.4 fL 80-94 [facility] Glucose Glucometer (BldC) [M ass/Vol]Ordered By: Dr. Fields on 04-19-2022 Glucose [Mass/Vol] 290 mg/dL 74-106 [facility] Comment on above: MANAGEMENT OF PATIEN T CARE PER NURSING PROTOCOL Hematocrit Auto (Bld) [Volum e fraction]Ordered By: Dr. Johnson on 04-19-2022 Hematocrit (Bld) [Volume fraction] 46.0 % 40-54 [facility] INR in Blood by Coagulation assayOrdered By: Dr. Fields on 04-19-2022 INR Coag (Bld) [Relative time] 1.0 {INR} [facility] Laboratory - Chemistry and C hemistry - challengeOrdered By: Dr. Fields on 04-19-2022 CO2 [Moles/Vol] 26.0 mmol/L 21.0-32.0 [facility] Urea nitrogen/Creatinine [Mass ratio] 15.7 mg/mg 10-20 [facility] Laboratory - CoagulationOrde red By: Dr. Fields on 04-19-2022 aPTT Coag (Bld) [Time] 25.0 s 24.1-36.2 [facility] PT Coag (PPP) [Time] 13.0 s 11.7-14.9 [facility] Laboratory - Hematology and Cell countsOrdered By: Dr. Johnson on 01-14-2023 Erythrocyte distribution width (RBC) [Entitic vol] 43.7 fL 35.1-43.9 [facility] Erythrocyte distribution width (RBC) [Ratio] 12.4 % 11.6-14.6 [facility] Immature granulocytes/100 WBC (Bld) 0.500 % 0.0-0.9 [facility] Comment on above: IG% - Immature Granu locytes (promyelocytes, myelocytes and metamyelocytes) > 1% indicates that a LEFT SHIFT is Present. MCH (RBC) [Entitic mass] 32.0 pg 27.0-32.0 [facility] Nucleated RBC/100 WBC (Bld) [Ratio] 0 % 0-5 [facility] MCHC Auto (RBC) [Mass/Vol]Or dered By: Dr. Johnson on 04-19-2022 MCHC (RBC) [Mass/Vol] 33.5 g/dL 32-36 [facility] No Panel InformationOrdered By: Dr. Fields on 04-19-2022 Estimated Creatinine Clearance Calc 79.98 ml/min [facility] Estimated GFR (MDRD) Amer 95 mL/min >60 [facility] Comment on above: GFR Calc Estimated GFR (MDRD) Non-Af Amer 79 mL/min >60 [facility] Comment on above: Non- GFR Calc Platelets bldOrdered By: Dr. Johnson on 04-19-2022 Platelets (Bld) [#/Vol] 254 10*3/uL 150-450 [facility] Serum or plasma calcium brenda urement (mass/volume)Ordered By: Dr. Fields on 04-19-2022 Calcium [Mass/Vol] 8.9 mg/dL 8.5-10.1 [facility] Serum or plasma creatinine m easurement (mass/volume)Ordered By: Dr. Fields on 04-19-2022 Creatinine [Mass/Vol] 1.02 mg/dL 0.70-1.30 [facility] Comment on above: The validity of the calculated GFR & GFRAA in patients over 70 years has not been determined. Clinical correlation is essential. Serum or plasma urea nitroge n measurement (mass/volume)Ordered By: Dr. Fields on 04-19-2022 Urea nitrogen [Mass/Vol] 16 mg/dL 7-18 [facility] Thin prep Papanicolaou smear with manual screeningOrdered By: Dr. Fields on 04-19-2022 Thin prep Papanicolaou smear with manual screening 7 5-15 [facility] Absolute lymphocyte counton 04-18-2022 Lymphocytes Auto (Unsp spec) [#/Vol] 2.31 10*3/uL 0.83-4.51 [facility] Work Phone: Basophil percentageon 2022 Basophils/100 WBC (Bld) 0.5 % 0-1 [facility] Work Phone: Chloride [Moles/Vol] 103 mmol/L 98-107 [facility] Work Phone: Eosinophils/100 WBC (Bld) 4.3 % 0-5 [facility] Work Phone: [phone] Glucose [Mass/Vol] 252 mg/dL 74-106 [facility] Work Phone: [phone] Comment on above: Moderate Lipemia, Re sult may be falsely increased.Glucose result greater than or equal to 200 mg/dLsuggests DIABETES MELLITUS per A.D.A. criteria. Neutrophils (Bld) [#/Vol] 4.7 10*3/uL 2.0-7.7 [facility] Work Phone: [phone] Neutrophils/100 WBC (Bld) 57.7 % 47-70 [facility] Work Phone: [phone] Potassium [Moles/Vol] 3.9 mmol/L 3.5-5.1 [facility] Work Phone: [phone] Comment on above: Moderate Hemolysis, Result may be falsely increased. Sodium [Moles/Vol] 136 mmol/L 136-145 [facility] Work Phone: WBC (Bld) [#/Vol] 8.1 10*3/uL 4.4-11.0 [facility] Work Phone: [phone] Blood erythrocytes count (nu mber/volume)on 04-18-2022 RBC (Bld) [#/Vol] 4.98 10*6/uL 4.6-6.2 [facility] Work Phone: [phone] Blood hemoglobin measurement (mass/volume)on 04-18-2022 Hemoglobin (Bld) [Mass/Vol] 16.4 g/dL 13.0-16.5 [facility] Work Phone: Blood lymphocytes/100 leukoc yteson 04-18-2022 Lymphocytes/100 WBC (Bld) 28.6 % 19-41 [facility] Work Phone: Blood monocytes/100 leukocyt eson 04-18-2022 Monocytes/100 WBC (Bld) 8.5 % 0-10 [facility] Work Phone: Blood platelet mean volumeon 04-18-2022 Platelet mean volume (Bld) [Entitic vol] 10.2 fL 6.2-12.0 [facility] Work Phone: [phone] Determination of erythrocyte mean corpuscular volume (MCV)on 04-18-2022 MCV (RBC) [Entitic vol] 97.4 fL 80-94 [facility] Work Phone: Hematocrit Auto (Bld) [Volum e fraction]on 04-18-2022 Hematocrit (Bld) [Volume fraction] 48.5 % 40-54 [facility] Work Phone: INR in Blood by Coagulation assayon 04-18-2022 INR Coag (Bld) [Relative time] 1.0 {INR} [facility] Work Phone: [phone] Laboratory - Chemistry and C hemistry - challengeon 04-18-2022 CO2 [Moles/Vol] 28.0 mmol/L 21.0-32.0 [facility] Work Phone: Urea nitrogen/Creatinine [Mass ratio] 17.1 mg/mg 10-20 [facility] Work Phone: Laboratory - Chemistry and C hemistry - challengeOrdered By: Dr. Moura on 04-18-2022 Magnesium [Mass/Vol] 1.8 mg/dL 1.6-2.6 [facility] Comment on above: Moderate Hemolysis, Result may be falsely increased. Laboratory - Coagulationon 0 04-18-2022 aPTT Coag (Bld) [Time] 25.6 s 24.1-36.2 [facility] Work Phone: PT Coag (PPP) [Time] 12.3 s 11.7-14.9 [facility] Work Phone: Laboratory - Hematology and Cell countson 04-18-2022 Erythrocyte distribution width (RBC) [Entitic vol] 44.8 fL 35.1-43.9 [facility] Work Phone: Erythrocyte distribution width (RBC) [Ratio] 12.4 % 11.6-14.6 [facility] Work Phone: Immature granulocytes/100 WBC (Bld) 0.400 % 0.0-0.9 [facility] Work Phone: Comment on above: IG% - Immature Granu locytes (promyelocytes, myelocytes and metamyelocytes) > 1% indicates that a LEFT SHIFT is Present. MCH (RBC) [Entitic mass] 32.9 pg 27.0-32.0 [facility] Work Phone: Nucleated RBC/100 WBC (Bld) [Ratio] 0 % 0-5 [facility] Work Phone: MCHC Auto (RBC) [Mass/Vol]on 04-18-2022 MCHC (RBC) [Mass/Vol] 33.8 g/dL 32-36 [facility] Work Phone: No Panel InformationOrdered By: Dr. Fields on 04-18-2022 Troponin I High Sensitivity 1889 pg/mL 3.0-78.0 [facility] Comment on above: Critical Result(s) C alled at: 09:16:37 04/18/2022 by: Rula Gutierrez. Results read back by same. Please Note: New Test Units and Gender Specific Reference Ranges. For more information see Policy Stat Procedure [place] High Sensitivity Troponin (TNIH) and attachments. No Panel Informationon 04-18 Troponin I High Sensitivity 241 pg/mL 3.0-78.0 [facility] Work Phone: Comment on above: Critical Result(s) C alled at: 04:49:49 04/18/2022 by: NICOLE Matthews [employer]. Results read back by same. Please Note: New Test Units and Gender Specific Reference Ranges. For more information see Policy Stat Procedure [place] High Sensitivity Troponin (TNIH) and attachments. Estimated Creatinine Clearance Calc 77.69 ml/min [facility] Work Phone: Estimated GFR (MDRD) Amer 92 mL/min >60 [facility] Work Phone: Comment on above: GFR Calc Estimated GFR (MDRD) Non-Af Amer 76 mL/min >60 [facility] Work Phone: Comment on above: Non- GFR Calc Platelets bldon 04-18-2022 Platelets (Bld) [#/Vol] 254 10*3/uL 150-450 [facility] Work Phone: Serum or plasma calcium brenda urement (mass/volume)on 04-18-2022 Calcium [Mass/Vol] 8.5 mg/dL 8.5-10.1 [facility] Work Phone: Comment on above: Moderate Lipemia, Re sult may be falsely decreased. Serum or plasma creatinine m easurement (mass/volume)on 04-18-2022 Creatinine [Mass/Vol] 1.05 mg/dL 0.70-1.30 [facility] Work Phone: Comment on above: The validity of the calculated GFR & GFRAA in patients over 70 years has not been determined. Clinical correlation is essential. Serum or plasma urea nitroge n measurement (mass/volume)on 04-18-2022 Urea nitrogen [Mass/Vol] 18 mg/dL 7-18 [facility] Work Phone: Thin prep Papanicolaou smear with manual screeningon 04-18-2022 Thin prep Papanicolaou smear with manual screening 5 5-15 [facility] Work Phone: Laboratory - Hematology and Cell countson 04-09-2022 HbA1c (Bld) [Mass fraction] 12.5 % 4.2-6.3 [facility] CNOVon 02-04-2022 CNOV Office Visit (SWS ) JAYLEN MEJIA ([id number]) 1960 Omar Date Time Provider Department 02/04/22 [...] non-ST elevation myocardial infarction (NSTEMI) 06/11/[address] Herrera Valles Hypertension Other emphysema (HCC) Pancreatitis Stenosis of [...] repair of (more content not included)... Normal [facility] CNOVon 01-28-2022 CNOV Office Visit (JOVANNA ) JAYLEN MEJIA ([id number]) 1960 Omar Date Time Provider Department 01/28/22 [...] non-ST elevation myocardial infarction (NSTEMI) 06/11/[address] Herrera Valles Hypertension Other emphysema (HCC) Pancreatitis Stenosis of [...] and ROS (more content not included)... Normal [facility] CT PELVIS WO IVCONon 022 CT PELVIS WO IVCON * * *Final Report* * * DATE OF EXAM: Jan 28 2022 10:28AM [facility] 0556 - CT PELVIS WO IVCON / [...] Fat-containing left inguinal hernia. Scattered colonic diverticula. Supervisor Logging: PSCB Transcribe Date/Time: Jan 29 2022 10:59A Dictated by : ELVA BOWDEN MD This examination was interpreted and the report reviewed and electronically signed by: ELVA BOWDEN MD on Jan 29 2022 11:22AM EST [id number] Normal [facility] CNOVon 01-06-2022 CNOV Office Visit (GENSWS ) JAYLEN MEJIA ([id number]) 1960 M Date Time Provider Department 01/06/22 [...] non-ST elevation myocardial infarction (NSTEMI) 06/11/[address] Herrera Valles Hypertension Other emphysema (HCC) Pancreatitis Stenosis of [...] gauge x (more content not included)... Normal [facility] Absolute lymphocyte counton 01-01-2022 Lymphocytes Auto (Unsp spec) [#/Vol] 2.63 10*3/uL 0.83-4.51 [facility] Work Phone: [phone] Basophil percentageon 2021 Basophils/100 WBC (Bld) 0.3 % 0-1 [facility] Work Phone: [phone] Chloride [Moles/Vol] 98 mmol/L 98-107 [facility] Work Phone: Eosinophils/100 WBC (Bld) 3.4 % 0-5 [facility] Work Phone: [phone] Glucose [Mass/Vol] 283 mg/dL 74-106 [facility] Work Phone: Comment on above: Moderate Lipemia, Re sult may be falsely increased.Glucose result greater than or equal to 200 mg/dLsuggests DIABETES MELLITUS per A.D.A. criteria. Neutrophils (Bld) [#/Vol] 3.5 10*3/uL 2.0-7.7 [facility] Work Phone: Neutrophils/100 WBC (Bld) 51.0 % 47-70 [facility] Work Phone: [phone] Potassium [Moles/Vol] 4.2 mmol/L 3.5-5.1 [facility] Work Phone: [phone] Comment on above: Moderate Hemolysis, Result may be falsely increased. Sodium [Moles/Vol] 133 mmol/L 136-145 [facility] Work Phone: WBC (Bld) [#/Vol] 6.8 10*3/uL 4.4-11.0 [facility] Work Phone: [phone] Blood erythrocytes count (nu mber/volume)on 01-01-2022 RBC (Bld) [#/Vol] 4.96 10*6/uL 4.6-6.2 [facility] Work Phone: [phone] Blood hemoglobin measurement (mass/volume)on 01-01-2022 Hemoglobin (Bld) [Mass/Vol] 16.4 g/dL 13.0-16.5 [facility] Work Phone: Blood lymphocytes/100 leukoc yteson 01-01-2022 Lymphocytes/100 WBC (Bld) 38.7 % 19-41 [facility] Work Phone: Blood monocytes/100 leukocyt eson 01-01-2022 Monocytes/100 WBC (Bld) 6.3 % 0-10 [facility] Work Phone: Blood platelet mean volumeon 01-01-2022 Platelet mean volume (Bld) [Entitic vol] 10.3 fL 6.2-12.0 [facility] Work Phone: Determination of erythrocyte mean corpuscular volume (MCV)on 01-01-2022 MCV (RBC) [Entitic vol] 93.5 fL 80-94 [facility] Work Phone: Hematocrit Auto (Bld) [Volum e fraction]on 01-01-2022 Hematocrit (Bld) [Volume fraction] 46.4 % 40-54 [facility] Work Phone: Laboratory - Chemistry and C hemistry - challengeon 01-01-2022 CO2 [Moles/Vol] 30.0 mmol/L 21.0-32.0 [facility] Work Phone: Urea nitrogen/Creatinine [Mass ratio] 15.3 mg/mg 10-20 [facility] Work Phone: [phone] Laboratory - Hematology and Cell countson 09-28-2022 Erythrocyte distribution width (RBC) [Entitic vol] 41.0 fL 35.1-43.9 [facility] Work Phone: Erythrocyte distribution width (RBC) [Ratio] 11.9 % 11.6-14.6 [facility] Work Phone: Immature granulocytes/100 WBC (Bld) 0.300 % 0.0-0.9 [facility] Work Phone: Comment on above: IG% - Immature Granu locytes (promyelocytes, myelocytes and metamyelocytes) > 1% indicates that a LEFT SHIFT is Present. MCH (RBC) [Entitic mass] 33.1 pg 27.0-32.0 [facility] Work Phone: Nucleated RBC/100 WBC (Bld) [Ratio] 0 % 0-5 [facility] Work Phone: MCHC Auto (RBC) [Mass/Vol]on 01-01-2022 MCHC (RBC) [Mass/Vol] 35.3 g/dL 32-36 [facility] Work Phone: No Panel Informationon 01-01 Estimated GFR (MDRD) Amer 100 mL/min >60 [facility] Work Phone: Comment on above: GFR Calc Estimated GFR (MDRD) Non-Af Amer 82 mL/min >60 [facility] Work Phone: Comment on above: Non- GFR Calc Vitamin D 25-Hydroxy 13.3 ng/mL [facility] [place] Work Phone: Comment on above: Vitamin D 25(OH) Sta tus Range Deficiency <20 ng/mL (50nmol/L) Insufficiency 20 - 30 ng/mL (50 - 75 nmol/L) Sufficiency 30 - 100 ng/mL (75 - 250 nmol/L) Toxicity >100 ng/mL (>250 nmol/L) Platelets bldon 01-01-2022 Platelets (Bld) [#/Vol] 258 10*3/uL 150-450 [facility] Work Phone: Serum or plasma calcium brenda urement (mass/volume)on 01-01-2022 Calcium [Mass/Vol] 8.2 mg/dL 8.5-10.1 [facility] Work Phone: Comment on above: Moderate Lipemia, Re sult may be falsely decreased. Serum or plasma creatinine m easurement (mass/volume)on 01-01-2022 Creatinine [Mass/Vol] 0.98 mg/dL 0.70-1.30 [facility] Work Phone: Comment on above: The validity of the calculated GFR & GFRAA in patients over 70 years has not been determined. Clinical correlation is essential. Serum or plasma urea nitroge n measurement (mass/volume)on 01-01-2022 Urea nitrogen [Mass/Vol] 15 mg/dL 7-18 [facility] Work Phone: Thin prep Papanicolaou smear with manual screeningon 01-01-2022 Thin prep Papanicolaou smear with manual screening 5 5-15 [facility] Work Phone: Whole blood hemoglobin A1c/t otal hemoglobin ratio (mass fraction)on 01-01-2022 HbA1c (Bld) [Mass fraction] 11.6 % 3.8-5.6 [facility] Work Phone: Comment on above: Normal < 5.7 % Predi abetic 5.7 - 6.4 % Diabetic >or= 6.5 % Please note range changes. 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 Normal [facility] No Panel Informationon 07-18 Influenza Types A,B Direct FA (PORFIRIO) [facility] Work Phone: Basophil percentageon 2021 Chloride [Moles/Vol] 92 mmol/L 98-107 [facility] [place] Work Phone: Cholesterol [Mass/Vol] 384 mg/dL <200 [facility] Work Phone: Comment on above: Moderate Icterus, Re sult may be falsely decreased. <200 mg/dL Desirable 200-240 mg/dL Borderline >240 mg/dL High Risk Glucose [Mass/Vol] 351 mg/dL 74-106 [facility] Work Phone: Comment on above: Moderate Lipemia, Re sult may be falsely increased.Glucose result greater than or equal to 200 mg/dLsuggests DIABETES MELLITUS per A.D.A. criteria. Potassium [Moles/Vol] 4.3 mmol/L 3.5-5.1 [facility] Work Phone: Comment on above: Moderate Hemolysis, Result may be falsely increased. Sodium [Moles/Vol] 127 mmol/L 136-145 [facility] Work Phone: Triglyceride [Mass/Vol] mg/dL [facility] Work Phone: Comment on above: The drugs N-Acetylcy steine and Metamizole may falsely depress this assay. Laboratory - Chemistry and C hemistry - challengeon 06-13-2021 CO2 [Moles/Vol] 29.0 mmol/L 21.0-32.0 [facility] Work Phone: Urea nitrogen/Creatinine [Mass ratio] 18.6 mg/mg 10-20 [facility] Work Phone: No Panel Informationon 06-13 Estimated GFR (MDRD) Amer 101 mL/min >60 [facility] Work Phone: Comment on above: GFR Calc Estimated GFR (MDRD) Non-Af Amer 84 mL/min >60 [facility] Work Phone: Comment on above: Non- GFR Calc Serum or plasma calcium brenda urement (mass/volume)on 06-13-2021 Calcium [Mass/Vol] 7.1 mg/dL 8.5-10.1 [facility] Work Phone: Comment on above: Moderate Lipemia, Re sult may be falsely decreased. Serum or plasma cholesterol in HDL measurement (mass/volume)on 06-13-2021 Cholesterol in HDL [Mass/Vol] 32 mg/dL [facility] Work Phone: Comment on above: The drugs N-Acetylcy steine and Metamizole may falsely depress this assay. Reference Range HDL <40 mg/dL Low HDL Cholesterol HDL >or= 60 mg/dL High HDL Cholesterol Serum or plasma cholesterol in VLDL measurement (mass/volume)on 06-13-2021 Cholesterol in VLDL [Mass/Vol] 200 mg/dL 5-40 [facility] Work Phone: Comment on above: Previous reported re sult: TNP mg/dLEdited by: JOHN on 06/13/21:1716 Serum or plasma creatinine m easurement (mass/volume)on 06-13-2021 Creatinine [Mass/Vol] 0.97 mg/dL 0.70-1.30 [facility] Work Phone: Comment on above: Moderate Icterus, Re sult may be falsely decreased.The validity of the calculated GFR & GFRAA in patients over 70 years has not been determined. Clinical correlation is essential. Serum or plasma low density lipoprotein (LDL) cholesterol measurement (mass/volume)on 06-13-2021 Cholesterol in LDL [Mass/Vol] TNP [facility] Work Phone: Comment on above: Test not performed Serum or plasma urea nitroge n measurement (mass/volume)on 06-13-2021 Urea nitrogen [Mass/Vol] 18 mg/dL 7-18 [facility] Work Phone: Thin prep Papanicolaou smear with manual screeningon 06-13-2021 Thin prep Papanicolaou smear with manual screening 6 5-15 [facility] Work Phone: Whole blood hemoglobin A1c/t otal hemoglobin ratio (mass fraction)on 06-13-2021 HbA1c (Bld) [Mass fraction] 11.7 % 3.8-5.6 [facility] Work Phone: Comment on above: Normal < 5.7 % Predi abetic 5.7 - 6.4 % Diabetic >or= 6.5 % Please note range changes. CNOVon 04-01-2021 CNOV Office Visit (UCWSTR ) JAYLEN MEJIA ([id number]) 1960 M Date Time Provider Department 04/01/21 [...] the esophagus (more content not included)... Normal [facility] Influenza virus A and B and SARS-CoV-2 (COVID-19) Ag panel - Upper respiratory specim SARS-CoV-2 (COVID-19) RNA HAYDER+probe Ql (Resp) [facility] Work Phone: No Panel Information SARS-CoV-2 & FLU Antigen (Rapid) [facility] Work Phone: Vital Signs Date Time Vital Sign Value Performing Clinician Facility 11-22-2024 13:18-0400 Body temperature 97.8 [degF] Dr. Xiang Rogers DO Work Phone: [facility] 11-22-2024 13:18-0400 Diastolic blood pressure 62 mm[Hg] Dr. Xiang Rogers DO Work Phone: [facility] 11-22-2024 13:18-0400 Heart rate 109 /min Dr. Xiang Rogers DO Work Phone: [facility] 11-22-2024 13:18-0400 Respiratory rate 22 /min Dr. Xiang Rogers DO Work Phone: [facility] 11-22-2024 13:18-0400 SaO2% (BldA) [Mass fraction] 97 % Dr. Xiang Rogers DO Work Phone: [facility] 11-22-2024 13:18-0400 Systolic blood pressure 98 mm[Hg] Dr. Xiang Rogers DO Work Phone: [facility] 11-22-2024 09:52-0400 Body height 180.[address] Xiang Rogers DO Work Phone: [facility] 11-22-2024 09:52-0400 Body mass index (BMI) [Ratio] 29.8 kg/m2 Dr. Xiang Rogers DO Work Phone: [facility] 11-22-2024 09:52-0400 Body weight [address] Xiang Rogers DO Work Phone: [facility] 11-16-2024 10:05-0400 Body temperature 98.2 [degF] Dr. Xiang Rogers DO Work Phone: [facility] 11-16-2024 10:05-0400 Body weight 94.[address] Xiang Rogers DO Work Phone: [facility] 11-16-2024 10:05-0400 Diastolic blood pressure 62 mm[Hg] Dr. Xiang Rogers DO Work Phone: [facility] 11-16-2024 10:05-0400 Heart rate 100 /min Dr. Xiang Rogers DO Work Phone: [facility] 11-16-2024 10:05-0400 Respiratory rate 16 /min Dr. Xiang Rogers DO Work Phone: [facility] 11-16-2024 10:05-0400 SaO2% (BldA) [Mass fraction] 96 % Dr. Xiang Rogers DO Work Phone: [facility] 11-16-2024 10:05-0400 Systolic blood pressure 99 mm[Hg] Dr. Xiang Rogers DO Work Phone: [facility] 11-13-2024 14:16-0400 Body temperature 98.2 [degF] Dr. Xiang Rogers DO Work Phone: [facility] 11-13-2024 14:16-0400 Diastolic blood pressure 59 mm[Hg] Dr. Xiang Rogers DO Work Phone: [facility] 11-13-2024 14:16-0400 Heart rate 92 /min Dr. Xiang Rogers DO Work Phone: [facility] 11-13-2024 14:16-0400 Respiratory rate 16 /min Dr. Xiang Rogers DO Work Phone: [facility] 11-13-2024 14:16-0400 SaO2% (BldA) [Mass fraction] 99 % Dr. Xiang Rogers DO Work Phone: [facility] 11-13-2024 14:16-0400 Systolic blood pressure 97 mm[Hg] Dr. Xiang Rogers DO Work Phone: [facility] 11-13-2024 08:49-0400 Inhaled oxygen flow rate 2 L/min Dr. Xiang Rogers DO Work Phone: [facility] 11-13-2024 06:00-0400 Body mass index (BMI) [Ratio] 27.6 kg/m2 Dr. Xiang Rogers DO Work Phone: [facility] 11-13-2024 06:00-0400 Body weight 89.[address] Xiang Rogers DO Work Phone: [facility] 11-11-2024 10:47-0400 Body height 180.[address] Xiang Rogers DO Work Phone: [facility] 11-10-2024 20:27-0400 Body temperature 98.9 [degF] Dr. Xiang Rogers DO Work Phone: [facility] 11-10-2024 20:27-0400 Diastolic blood pressure 77 mm[Hg] Dr. Xiang Rogers DO Work Phone: [facility] 11-10-2024 20:27-0400 Heart rate 95 /min Dr. Xiang Rogers DO Work Phone: [facility] 11-10-2024 20:27-0400 Respiratory rate 17 /min Dr. Xiang Rogers DO Work Phone: [facility] 11-10-2024 20:27-0400 SaO2% (BldA) [Mass fraction] 98 % Dr. Xiang Rogers DO Work Phone: [facility] 11-10-2024 20:27-0400 Systolic blood pressure 127 mm[Hg] Dr. Xiang Rogers DO Work Phone: [facility] 11-10-2024 20:00-0400 Inhaled oxygen flow rate 2 L/min Dr. Xiang Rogers DO Work Phone: [facility] 11-10-2024 14:47-0400 Body height 180.[address] Xiang Rogers DO Work Phone: [facility] 11-10-2024 10:14-0400 Body height 180.[address] Xiang Rogers DO Work Phone: [facility] 11-10-2024 10:14-0400 Body mass index (BMI) [Ratio] 30.1 kg/m2 Dr. Xiang Rogers DO Work Phone: [facility] 11-10-2024 10:14-0400 Body temperature 97 [degF] Dr. Xiang Rogers DO Work Phone: [facility] 11-10-2024 10:14-0400 Body weight 97.[address] Xiang Rogers DO Work Phone: [facility] 11-10-2024 10:14-0400 Diastolic blood pressure 64 mm[Hg] Dr. Xiang Rogers DO Work Phone: [facility] 11-10-2024 10:14-0400 Heart rate 96 /min Dr. Xiang Rogers DO Work Phone: [facility] 11-10-2024 10:14-0400 Respiratory rate 16 /min Dr. Xiang Rogers DO Work Phone: [facility] 11-10-2024 10:14-0400 SaO2% (BldA) [Mass fraction] 98 % Dr. Xiang Rogers DO Work Phone: [facility] 11-10-2024 10:14-0400 Systolic blood pressure 100 mm[Hg] Dr. Xiang Rogers DO Work Phone: [facility] 11-04-2024 13:57-0400 Body height 180.[address] Xiang Rogers DO Work Phone: [facility] 11-04-2024 13:57-0400 Body mass index (BMI) [Ratio] 28.8 kg/m2 Dr. Xiang Rogers DO Work Phone: [facility] 11-04-2024 13:57-0400 Body temperature 98.4 [degF] Dr. Xiang Rogers DO Work Phone: [facility] 11-04-2024 13:57-0400 Body weight 93.[address] Xiang Rogers DO Work Phone: [facility] 11-04-2024 13:57-0400 Diastolic blood pressure 60 mm[Hg] Dr. Xiang Rogers DO Work Phone: [facility] 11-04-2024 13:57-0400 Heart rate 92 /min Dr. Xiang Rogers DO Work Phone: [facility] 11-04-2024 13:57-0400 Respiratory rate 19 /min Dr. Xiang Rogers DO Work Phone: [facility] 11-04-2024 13:57-0400 SaO2% (BldA) [Mass fraction] 98 % Dr. Xiang Rogers DO Work Phone: [facility] 11-04-2024 13:57-0400 Systolic blood pressure 100 mm[Hg] Dr. Xiang Rogers DO Work Phone: [facility] 11-03-2024 10:29-0400 Body height 180.[address] Xiang Rogers DO Work Phone: [facility] 11-03-2024 10:29-0400 Body mass index (BMI) [Ratio] 28.5 kg/m2 Dr. Xiang Rogers DO Work Phone: [facility] 11-03-2024 10:29-0400 Body weight 92.[address] Xiang Rogers DO Work Phone: [facility] 11-03-2024 10:29-0400 Diastolic blood pressure 65 mm[Hg] Dr. Xiang Rogers DO Work Phone: [facility] 11-03-2024 10:29-0400 Heart rate 75 /min Dr. Xiang Rogers DO Work Phone: [facility] 11-03-2024 10:29-0400 Respiratory rate 18 /min Dr. Xiang Rogers DO Work Phone: [facility] 11-03-2024 10:29-0400 Systolic blood pressure 99 mm[Hg] Dr. Xiang Rogers DO Work Phone: [facility] 10-27-2024 01:16-0400 Body temperature 98.2 [degF] Dr. Xiang Rogers DO Work Phone: [facility] 10-27-2024 01:16-0400 Diastolic blood pressure 80 mm[Hg] Dr. Xiang Rogers DO Work Phone: [facility] 10-27-2024 01:16-0400 Heart rate 105 /min Dr. Xiang Rogers DO Work Phone: [facility] 10-27-2024 01:16-0400 Respiratory rate 14 /min Dr. Xiang Rogers DO Work Phone: [facility] 10-27-2024 01:16-0400 SaO2% (BldA) [Mass fraction] 99 % Dr. Xiang Rogers DO Work Phone: [facility] 10-27-2024 01:16-0400 Systolic blood pressure 119 mm[Hg] Dr. Xiang Rogers DO Work Phone: [facility] 10-26-2024 23:38-0400 Body mass index (BMI) [Ratio] 28.4 kg/m2 Dr. Xiang Rogers DO Work Phone: [facility] 10-26-2024 23:38-0400 Body weight 92.[address] Xiang Rogers DO Work Phone: [facility] 10-26-2024 23:29-0400 Body height 180.[address] Xiang Rogers DO Work Phone: [facility] 10-23-2024 20:45-0400 Body temperature 97.8 [degF] Dr. Xiang Rogers DO Work Phone: [facility] 10-23-2024 20:45-0400 Diastolic blood pressure 73 mm[Hg] Dr. Xiang Rogers DO Work Phone: [facility] 10-23-2024 20:45-0400 Heart rate 93 /min Dr. Xiang Rogers DO Work Phone: [facility] 10-23-2024 20:45-0400 Respiratory rate 18 /min Dr. Xiang Rogers DO Work Phone: [facility] 10-23-2024 20:45-0400 SaO2% (BldA) [Mass fraction] 94 % Dr. Xiang Rogers DO Work Phone: [facility] 10-23-2024 20:45-0400 Systolic blood pressure 103 mm[Hg] Dr. Xiang Rogers DO Work Phone: [facility] 10-23-2024 19:03-0400 Body mass index (BMI) [Ratio] 30.2 kg/m2 Dr. Xiang Rogers DO Work Phone: [facility] 10-23-2024 19:03-0400 Body weight 98.[address] Xiang Rogers DO Work Phone: [facility] 10-23-2024 17:54-0400 Body height 180.[address] Xiang Rogers DO Work Phone: [facility] 10-21-2024 16:52-0400 Body temperature 98.2 [degF] Dr. Xiang Rogers DO Work Phone: [facility] 10-21-2024 16:52-0400 Diastolic blood pressure 62 mm[Hg] Dr. Xiang Rogers DO Work Phone: [facility] 10-21-2024 16:52-0400 Heart rate 95 /min Dr. Xiang Rogers DO Work Phone: [facility] 10-21-2024 16:52-0400 Respiratory rate 20 /min Dr. Xiang Rogers DO Work Phone: [facility] 10-21-2024 16:52-0400 SaO2% (BldA) [Mass fraction] 99 % Dr. Xiang Rogers DO Work Phone: [facility] 10-21-2024 16:52-0400 Systolic blood pressure 108 mm[Hg] Dr. Xiang Rogers DO Work Phone: [facility] 10-21-2024 16:26-0400 Body height 180.[address] Xiang Rogers DO Work Phone: [facility] 10-21-2024 16:26-0400 Body mass index (BMI) [Ratio] 27 kg/m2 Dr. Xiang Rogers DO Work Phone: [facility] 10-21-2024 16:26-0400 Body weight 87.[address] Xiang Rogers DO Work Phone: [facility] 10-19-2024 23:27-0400 Body temperature 97.9 [degF] Dr. Xiang Rogers DO Work Phone: [facility] 10-19-2024 23:27-0400 Diastolic blood pressure 76 mm[Hg] Dr. Xiang Rogers DO Work Phone: [facility] 10-19-2024 23:27-0400 Heart rate 98 /min Dr. Xiang Rogers DO Work Phone: [facility] 10-19-2024 23:27-0400 Respiratory rate 16 /min Dr. Xiang Rogers DO Work Phone: [facility] 10-19-2024 23:27-0400 SaO2% (BldA) [Mass fraction] 96 % Dr. Xiang Rogers DO Work Phone: [facility] 10-19-2024 23:27-0400 Systolic blood pressure 114 mm[Hg] Dr. Xiang Rogers DO Work Phone: [facility] 10-19-2024 18:20-0400 Body height 180.[address] Xiang Rogers DO Work Phone: [facility] 10-19-2024 18:20-0400 Body mass index (BMI) [Ratio] 27 kg/m2 Dr. Xiang Rogers DO Work Phone: [facility] 10-19-2024 18:20-0400 Body weight 87.[address] Xiang Rogers DO Work Phone: [facility] 09-27-2024 09:59-0400 Body height 180.[address] Xiang Rogers DO Work Phone: [facility] 09-27-2024 09:59-0400 Body mass index (BMI) [Ratio] 26 kg/m2 Dr. Xiang Rogers DO Work Phone: [facility] 09-27-2024 09:59-0400 Body weight 84.[address] Xiang Rogers DO Work Phone: [facility] 09-27-2024 09:59-0400 Diastolic blood pressure 64 mm[Hg] Dr. Xiang Rogers DO Work Phone: [facility] 09-27-2024 09:59-0400 Heart rate 83 /min Dr. Xiang Rogers DO Work Phone: [facility] 09-27-2024 09:59-0400 Respiratory rate 18 /min Dr. Xiang Rogers DO Work Phone: [facility] 09-27-2024 09:59-0400 Systolic blood pressure 103 mm[Hg] Dr. Xiang Rogers DO Work Phone: [facility] 09-21-2024 14:17-0400 Body temperature 97.8 [degF] Dr. Xiang Rogers DO Work Phone: [facility] 09-21-2024 14:17-0400 Diastolic blood pressure 54 mm[Hg] Dr. Xiang Rogers DO Work Phone: [facility] 09-21-2024 14:17-0400 Heart rate 82 /min Dr. Xiang Rogers DO Work Phone: [facility] 09-21-2024 14:17-0400 Respiratory rate 14 /min Dr. Xiang Rogers DO Work Phone: [facility] 09-21-2024 14:17-0400 SaO2% (BldA) [Mass fraction] 97 % Dr. Xiang Rogers DO Work Phone: [facility] 09-21-2024 14:17-0400 Systolic blood pressure 90 mm[Hg] Dr. Xiang Rogers DO Work Phone: [facility] 09-19-2024 10:52-0400 Body height 180.[address] Xiang Rogers DO Work Phone: [facility] 09-19-2024 10:52-0400 Body weight 87.[address] Xiang Rogers DO Work Phone: [facility] 09-18-2024 15:22-0400 Body mass index (BMI) [Ratio] 26.9 kg/m2 Dr. Xiang Rogers DO Work Phone: [facility] 09-18-2024 14:00-0400 Diastolic blood pressure 70 mm[Hg] Dr. Xiang Rogers DO Work Phone: [facility] 09-18-2024 14:00-0400 Heart rate 103 /min Dr. Xiang Rogers DO Work Phone: [facility] 09-18-2024 14:00-0400 Respiratory rate 20 /min Dr. Xiang Rogers DO Work Phone: [facility] 09-18-2024 14:00-0400 SaO2% (BldA) [Mass fraction] 97 % Dr. Xiang Rogers DO Work Phone: [facility] 09-18-2024 14:00-0400 Systolic blood pressure 120 mm[Hg] Dr. Xiang Rogers DO Work Phone: [facility] 09-18-2024 13:37-0400 Body temperature 98.2 [degF] Dr. Xiang Rogers DO Work Phone: [facility] 09-18-2024 09:51-0400 Body height 180.[address] Xiang Rogers DO Work Phone: [facility] 09-18-2024 09:51-0400 Body mass index (BMI) [Ratio] 26.9 kg/m2 Dr. Xiang Rogers DO Work Phone: [facility] 09-18-2024 09:51-0400 Body weight 87.[address] Xiang Rogers DO Work Phone: [facility] 08-02-2024 11:29-0400 Body mass index (BMI) [Ratio] 26.6 kg/m2 Dr. Xiang Rogers DO Work Phone: [facility] 08-02-2024 11:29-0400 Body temperature 96.4 [degF] Dr. Xiang Rogers DO Work Phone: [facility] 08-02-2024 11:29-0400 Body weight 84.[address] Xiang Rogers DO Work Phone: [facility] 08-02-2024 11:29-0400 Diastolic blood pressure 66 mm[Hg] Dr. Xiang Rogers DO Work Phone: [facility] 08-02-2024 11:29-0400 Heart rate 87 /min Dr. Xiang Rogers DO Work Phone: [facility] 08-02-2024 11:29-0400 Respiratory rate 16 /min Dr. Xiang Rogers DO Work Phone: [facility] 08-02-2024 11:29-0400 SaO2% (BldA) [Mass fraction] 98 % Dr. Xiang Rogers DO Work Phone: [facility] 08-02-2024 11:29-0400 Systolic blood pressure 118 mm[Hg] Dr. Xiang Rogers DO Work Phone: [facility] 07-29-2024 23:02-0400 Body temperature 97.2 [degF] Dr. Xiang Rogers DO Work Phone: [facility] 07-29-2024 23:02-0400 Diastolic blood pressure 69 mm[Hg] Dr. Xiang Rogers DO Work Phone: [facility] 07-29-2024 23:02-0400 Heart rate 82 /min Dr. Xiang Rogers DO Work Phone: [facility] 07-29-2024 23:02-0400 Respiratory rate 16 /min Dr. Xiang Rogers DO Work Phone: [facility] 07-29-2024 23:02-0400 SaO2% (BldA) [Mass fraction] 95 % Dr. Xiang Rogers DO Work Phone: [facility] 07-29-2024 23:02-0400 Systolic blood pressure 117 mm[Hg] Dr. Xiang Rogers DO Work Phone: [facility] 07-29-2024 20:00-0400 Body mass index (BMI) [Ratio] 26.8 kg/m2 Dr. Xiang Rogers DO Work Phone: [facility] 07-29-2024 20:00-0400 Body weight 87.[address] Xiang Rogers DO Work Phone: [facility] 07-14-2024 10:05-0400 Body temperature 98.2 [degF] Dr. Xiang Rogers DO Work Phone: [facility] 07-14-2024 10:05-0400 Body weight 85.[address] Xiang Rogers DO Work Phone: [facility] 07-14-2024 10:05-0400 Diastolic blood pressure 60 mm[Hg] Dr. Xiang Rogers DO Work Phone: [facility] 07-14-2024 10:05-0400 Heart rate 90 /min Dr. Xiang Rogers DO Work Phone: [facility] 07-14-2024 10:05-0400 Respiratory rate 16 /min Dr. Xiang Rogers DO Work Phone: [facility] 07-14-2024 10:05-0400 SaO2% (BldA) [Mass fraction] 96 % Dr. Xiang Rogers DO Work Phone: [facility] 07-14-2024 10:05-0400 Systolic blood pressure 113 mm[Hg] Dr. Xiang Rogers DO Work Phone: [facility] 07-12-2024 10:03-0400 Body mass index (BMI) [Ratio] 25.9 kg/m2 Dr. Xiang Rogers DO Work Phone: [facility] 07-12-2024 10:03-0400 Body weight 84.[address] Xiang Rogers DO Work Phone: [facility] 07-12-2024 10:03-0400 Diastolic blood pressure 72 mm[Hg] Dr. Xiang Rogers DO Work Phone: [facility] 07-12-2024 10:03-0400 Heart rate 84 /min Dr. Xiang Rogers DO Work Phone: [facility] 07-12-2024 10:03-0400 Respiratory rate 20 /min Dr. Xiang Rogers DO Work Phone: [facility] 07-12-2024 10:03-0400 SaO2% (BldA) [Mass fraction] 96 % Dr. Xiang Rogers DO Work Phone: [facility] 07-12-2024 10:03-0400 Systolic blood pressure 120 mm[Hg] Dr. Xiang Rogers DO Work Phone: [facility] 06-20-2024 10:00-0400 Body temperature 98.1 [degF] Dr. Xiang Rogers DO Work Phone: [facility] 06-20-2024 10:00-0400 Diastolic blood pressure 68 mm[Hg] Dr. Xiang Rogers DO Work Phone: [facility] 06-20-2024 10:00-0400 Heart rate 74 /min Dr. Xiang Rogers DO Work Phone: [facility] 06-20-2024 10:00-0400 Respiratory rate 16 /min Dr. Xiang Rogers DO Work Phone: [facility] 06-20-2024 10:00-0400 SaO2% (BldA) [Mass fraction] 99 % Dr. Xiang Rogers DO Work Phone: [facility] 06-20-2024 10:00-0400 Systolic blood pressure 112 mm[Hg] Dr. Xiang Rogers DO Work Phone: [facility] 06-20-2024 04:34-0400 Body mass index (BMI) [Ratio] 26.7 kg/m2 Dr. Xiang Rogers DO Work Phone: [facility] 06-20-2024 04:34-0400 Body weight [address] Xiang Rogers DO Work Phone: [facility] 06-19-2024 10:35-0400 Inhaled oxygen flow rate 1 L/min Dr. Xiang Rogers DO Work Phone: [facility] 06-18-2024 05:54-0400 Inhaled oxygen concentration 30 % Dr. Xiang Rogers DO Work Phone: [facility] 05-21-2024 17:26-0500 Body mass index (BMI) [Ratio] 28.1 kg/m2 Dr. Xiang Rogers DO Work Phone: [facility] 05-21-2024 17:26-0500 Body temperature 98.1 [degF] Dr. Xiang Rogers DO Work Phone: [facility] 05-21-2024 17:26-0500 Body weight 88.[address] Xiang Rogers DO Work Phone: [facility] 05-21-2024 17:26-0500 Diastolic blood pressure 83 mm[Hg] Dr. Xiang Rogers DO Work Phone: [facility] 05-21-2024 17:26-0500 Heart rate 102 /min Dr. Xiang Rogers DO Work Phone: [facility] 05-21-2024 17:26-0500 Respiratory rate 16 /min Dr. Xiang Rogers DO Work Phone: [facility] 05-21-2024 17:26-0500 SaO2% (BldA) [Mass fraction] 97 % Dr. Xiang Rogers DO Work Phone: [facility] 05-21-2024 17:26-0500 Systolic blood pressure 115 mm[Hg] Dr. Xiang Rogers DO Work Phone: [facility] 05-17-2024 12:50-0500 Body temperature 98 [degF] Dr. Xiang Rogers DO Work Phone: [facility] 05-17-2024 12:50-0500 Body weight 86.[address] Xiang Rogers DO Work Phone: [facility] 05-17-2024 12:50-0500 Diastolic blood pressure 70 mm[Hg] Dr. Xiang Rogers DO Work Phone: [facility] 05-17-2024 12:50-0500 Heart rate 90 /min Dr. Xiang Rogers DO Work Phone: [facility] 05-17-2024 12:50-0500 Respiratory rate 16 /min Dr. Xiang Rogers DO Work Phone: [facility] 05-17-2024 12:50-0500 SaO2% (BldA) [Mass fraction] 97 % Dr. Xiang Rogers DO Work Phone: [facility] 05-17-2024 12:50-0500 Systolic blood pressure 108 mm[Hg] Dr. Xiang Rogers DO Work Phone: [facility] 05-03-2024 10:53-0500 Body mass index (BMI) [Ratio] 27.6 kg/m2 Dr. Xiang Rogers DO Work Phone: [facility] 05-03-2024 10:53-0500 Body temperature 97.8 [degF] Dr. Xiang Rogers DO Work Phone: [facility] 05-03-2024 10:53-0500 Body weight 87.[address] Xiang Rogers DO Work Phone: [facility] 05-03-2024 10:53-0500 Diastolic blood pressure 62 mm[Hg] Dr. Xiang Rogers DO Work Phone: [facility] 05-03-2024 10:53-0500 Heart rate 93 /min Dr. Xiang Rogers DO Work Phone: [facility] 05-03-2024 10:53-0500 Respiratory rate 18 /min Dr. Xiang Rogers DO Work Phone: [facility] 05-03-2024 10:53-0500 SaO2% (BldA) [Mass fraction] 97 % Dr. Xiang Rogers DO Work Phone: [facility] 05-03-2024 10:53-0500 Systolic blood pressure 120 mm[Hg] Dr. Xiang Rogers DO Work Phone: [facility] 04-20-2024 07:15-0500 Body weight 87.[address] Xiang Rogers DO Work Phone: [facility] 04-19-2024 08:51-0500 Body mass index (BMI) [Ratio] 27.8 kg/m2 Dr. Xiang Rogers DO Work Phone: [facility] 04-08-2024 13:27-0500 Body temperature 98.2 [degF] Dr. Xiang Rogers DO Work Phone: [facility] 04-08-2024 13:27-0500 Body weight 87.[address] Xiang Rogers DO Work Phone: [facility] 04-08-2024 13:27-0500 Diastolic blood pressure 74 mm[Hg] Dr. Xiang Rogers DO Work Phone: [facility] 04-08-2024 13:27-0500 Heart rate 78 /min Dr. Xiang Rogers DO Work Phone: [facility] 04-08-2024 13:27-0500 Respiratory rate 16 /min Dr. Xiang Rogers DO Work Phone: [facility] 04-08-2024 13:27-0500 SaO2% (BldA) [Mass fraction] 97 % Dr. Xiang Rogers DO Work Phone: [facility] 04-08-2024 13:27-0500 Systolic blood pressure 127 mm[Hg] Dr. Xiang Rogers DO Work Phone: [facility] 04-01-2024 09:51-0500 Body mass index (BMI) [Ratio] 27.8 kg/m2 Dr. Xiang Rogers DO Work Phone: [facility] 04-01-2024 09:51-0500 Body weight 87.[address] Xiang Rogers DO Work Phone: [facility] 04-01-2024 09:51-0500 Diastolic blood pressure 80 mm[Hg] Dr. Xiang Rogers DO Work Phone: [facility] 04-01-2024 09:51-0500 Heart rate 76 /min Dr. Xiang Rogers DO Work Phone: [facility] 04-01-2024 09:51-0500 Respiratory rate 18 /min Dr. Xiang Rogers DO Work Phone: [facility] 04-01-2024 09:51-0500 SaO2% (BldA) [Mass fraction] 99 % Dr. Xiang Rogers DO Work Phone: [facility] 04-01-2024 09:51-0500 Systolic blood pressure 136 mm[Hg] Dr. Xiang Rogers DO Work Phone: [facility] 03-22-2024 11:03-0500 Body temperature 97.8 [degF] Dr. Xiang Rogers DO Work Phone: [facility] 03-22-2024 11:03-0500 Body weight 87.[address] Xiang Rogers DO Work Phone: [facility] 03-22-2024 11:03-0500 Diastolic blood pressure 59 mm[Hg] Dr. Xiang Rogers DO Work Phone: [facility] 03-22-2024 11:03-0500 Heart rate 90 /min Dr. Xiang Rogers DO Work Phone: [facility] 03-22-2024 11:03-0500 Respiratory rate 16 /min Dr. Xiang Rogers DO Work Phone: [facility] 03-22-2024 11:03-0500 SaO2% (BldA) [Mass fraction] 97 % Dr. Xiang Rogers DO Work Phone: [facility] 03-22-2024 11:03-0500 Systolic blood pressure 112 mm[Hg] Dr. Xiang Rogers DO Work Phone: [facility] 02-24-2024 13:07-0500 Body mass index (BMI) [Ratio] 27.9 kg/m2 Dr. Xiang Rogers DO Work Phone: [facility] 02-24-2024 13:07-0500 Body temperature 97.6 [degF] Dr. Xiang Rogers DO Work Phone: [facility] 02-24-2024 13:07-0500 Body weight 88.[address] Xiang Rogers DO Work Phone: [facility] 02-24-2024 13:07-0500 Diastolic blood pressure 76 mm[Hg] Dr. Xiang Rogers DO Work Phone: [facility] 02-24-2024 13:07-0500 Heart rate 72 /min Dr. Xiang Rogers DO Work Phone: [facility] 02-24-2024 13:07-0500 Respiratory rate 16 /min Dr. Xiang Rogers DO Work Phone: [facility] 02-24-2024 13:07-0500 SaO2% (BldA) [Mass fraction] 97 % Dr. Xiang Rogers DO Work Phone: [facility] 02-24-2024 13:07-0500 Systolic blood pressure 126 mm[Hg] Dr. Xiang Rogers DO Work Phone: [facility] 02-24-2024 11:24-0500 Body temperature 98.4 [degF] Dr. Xiang Rogers DO Work Phone: [facility] 02-24-2024 11:24-0500 Body weight 88.[address] Xiang Rogers DO Work Phone: [facility] 02-24-2024 11:24-0500 Diastolic blood pressure 61 mm[Hg] Dr. Xiang Rogers DO Work Phone: [facility] 02-24-2024 11:24-0500 Heart rate 64 /min Dr. Xiang Rogers DO Work Phone: [facility] 02-24-2024 11:24-0500 Respiratory rate 16 /min Dr. Xiang Rogers DO Work Phone: [facility] 02-24-2024 11:24-0500 SaO2% (BldA) [Mass fraction] 98 % Dr. Xiang Rogers DO Work Phone: [facility] 02-24-2024 11:24-0500 Systolic blood pressure 105 mm[Hg] Dr. Xiang Rogers DO Work Phone: [facility] 12-31-2023 09:26-0400 Body mass index (BMI) [Ratio] 25.95 kg/m2 Gab Culver APRN.PRESS OPERATOR APPRENTICE Work Phone: [facility] 12-31-2023 09:26-0400 Body temperature 97.5 [degF] Gab Culver APRN.CNP Work Phone: [facility] 12-31-2023 09:26-0400 Body weight 84.4 kg [facility] MENTAL HYGIENE CONSULTANT.PRESS OPERATOR APPRENTICE Work Phone: [facility] 12-31-2023 09:26-0400 Diastolic blood pressure 75 mm[Hg] [facility] MENTAL HYGIENE CONSULTANT.PRESS OPERATOR APPRENTICE Work Phone: [facility] 12-31-2023 09:26-0400 Heart rate 78 /min [facility] MENTAL HYGIENE CONSULTANT.PRESS OPERATOR APPRENTICE Work Phone: [facility] 12-31-2023 09:26-0400 Respiratory rate 18 /min [facility] MENTAL HYGIENE CONSULTANT.PRESS OPERATOR APPRENTICE Work Phone: [facility] 12-31-2023 09:26-0400 SaO2% (BldA) [Mass fraction] 96 % [facility] MENTAL HYGIENE CONSULTANT.PRESS OPERATOR APPRENTICE Work Phone: [facility] 12-31-2023 09:26-0400 Systolic blood pressure 126 mm[Hg] [facility] MENTAL HYGIENE CONSULTANT.PRESS OPERATOR APPRENTICE Work Phone: [facility] 06-02-2023 12:53-0500 Body height 180.[address] Xiang Rogers Work Phone: [facility] 06-02-2023 12:53-0500 Body mass index (BMI) [Ratio] 26.9 kg/m2 Dr. Xiang Rogers Work Phone: [facility] 06-02-2023 12:53-0500 Body temperature 97.4 [degF] Dr. Xiang Rogers Work Phone: [facility] 06-02-2023 12:53-0500 Body weight 87.[address] Xiang Rogers Work Phone: [facility] 06-02-2023 12:53-0500 Diastolic blood pressure 66 mm[Hg] Dr. Xiang Rogers Work Phone: [facility] 06-02-2023 12:53-0500 Heart rate 60 /min Dr. Xiang Rogers Work Phone: [facility] 06-02-2023 12:53-0500 Respiratory rate 18 /min Dr. Xiang Rogers Work Phone: [facility] 06-02-2023 12:53-0500 SaO2% (BldA) [Mass fraction] 96 % Dr. Xiang Rogers Work Phone: [facility] 06-02-2023 12:53-0500 Systolic blood pressure 125 mm[Hg] Dr. Xiang Rogers Work Phone: [facility] 05-24-2023 02:38-0500 Body temperature 97.7 [degF] Dr. Xiang Rogers Work Phone: [facility] 05-24-2023 02:38-0500 Diastolic blood pressure 61 mm[Hg] Dr. Xiang Rogers Work Phone: [facility] 05-24-2023 02:38-0500 Heart rate 71 /min Dr. Xiang Rogers Work Phone: [facility] 05-24-2023 02:38-0500 Respiratory rate 18 /min Dr. Xiang Rogers Work Phone: [facility] 05-24-2023 02:38-0500 SaO2% (BldA) [Mass fraction] 96 % Dr. Xiang Rogers Work Phone: [facility] 05-24-2023 02:38-0500 Systolic blood pressure 99 mm[Hg] Dr. Xiang Rogers Work Phone: [facility] 05-24-2023 00:23-0500 Body height 180.[address] Xiang Rogers Work Phone: [facility] 05-24-2023 00:23-0500 Body mass index (BMI) [Ratio] 25.8 kg/m2 Dr. Xiang Rogers Work Phone: [facility] 05-24-2023 00:23-0500 Body weight [address] Xiang Rogers Work Phone: [facility] 04-25-2023 17:36-0500 Body temperature 95 [degF] Dr. Xiang Rogers Work Phone: [facility] 04-25-2023 17:36-0500 Diastolic blood pressure 73 mm[Hg] Dr. Xiang Rogers Work Phone: [facility] 04-25-2023 17:36-0500 Heart rate 67 /min Dr. Xiang Rogers Work Phone: [facility] 04-25-2023 17:36-0500 Respiratory rate 18 /min Dr. Xiang Rogers Work Phone: [facility] 04-25-2023 17:36-0500 Systolic blood pressure 139 mm[Hg] Dr. Xiang Rogers Work Phone: [facility] 04-25-2023 15:25-0500 Body height 180.[address] Xiang Rogers Work Phone: [facility] 04-25-2023 15:25-0500 Body mass index (BMI) [Ratio] 26.7 kg/m2 Dr. Xiang Rogers Work Phone: [facility] 04-25-2023 15:25-0500 Body weight 87.[address] Xiang Rogers Work Phone: [facility] 04-25-2023 15:25-0500 SaO2% (BldA) [Mass fraction] 96 % Dr. Xiang Rogers Work Phone: [facility] 04-15-2023 09:24-0500 Body height 180.[address] Xiang Rogers Work Phone: [facility] 04-15-2023 09:24-0500 Body mass index (BMI) [Ratio] 26.9 kg/m2 Dr. Xiang Rogers Work Phone: [facility] 04-15-2023 09:24-0500 Body temperature 97.2 [degF] Dr. Xiang Rogers Work Phone: [facility] 04-15-2023 09:24-0500 Body weight 87.[address] Xiang Rogers Work Phone: [facility] 04-15-2023 09:24-0500 Diastolic blood pressure 70 mm[Hg] Dr. Xiang Rogers Work Phone: [facility] 04-15-2023 09:24-0500 Heart rate 81 /min Dr. Xiang Rogers Work Phone: [facility] 04-15-2023 09:24-0500 Respiratory rate 16 /min Dr. Xiang Rogers Work Phone: [facility] 04-15-2023 09:24-0500 SaO2% (BldA) [Mass fraction] 98 % Dr. Xiang Rogers Work Phone: [facility] 04-15-2023 09:24-0500 Systolic blood pressure 128 mm[Hg] Dr. Xiang Rogers Work Phone: [facility] 01-26-2023 15:28-0400 Body mass index (BMI) [Ratio] 27.3 kg/m2 Dr. Xiang Rogers Work Phone: [facility] 01-26-2023 15:28-0400 Body weight 88.[address] Xiang Rogers Work Phone: [facility] 01-26-2023 15:28-0400 Diastolic blood pressure 56 mm[Hg] Dr. Xiang Rogers Work Phone: [facility] 01-26-2023 15:28-0400 Heart rate 70 /min Dr. Xiang Rogers Work Phone: [facility] 01-26-2023 15:28-0400 Respiratory rate 18 /min Dr. Xiang Rogers Work Phone: [facility] 01-26-2023 15:28-0400 Systolic blood pressure 118 mm[Hg] Dr. Xiang Rogers Work Phone: [facility] 01-13-2023 09:27-0400 Body mass index (BMI) [Ratio] 27 kg/m2 Dr. Xiang Rogers Work Phone: [facility] 01-13-2023 09:27-0400 Body temperature 98.4 [degF] Dr. Xiang Rogers Work Phone: [facility] 01-13-2023 09:27-0400 Body weight 87.[address] Xiang Rogers Work Phone: [facility] 01-13-2023 09:27-0400 Diastolic blood pressure 70 mm[Hg] Dr. Xiang Rogers Work Phone: [facility] 01-13-2023 09:27-0400 Heart rate 61 /min Dr. Xiang Rogers Work Phone: [facility] 01-13-2023 09:27-0400 Respiratory rate 16 /min Dr. Xiang Rogers Work Phone: [facility] 01-13-2023 09:27-0400 SaO2% (BldA) [Mass fraction] 97 % Dr. Xiang Rogers Work Phone: [facility] 01-13-2023 09:27-0400 Systolic blood pressure 120 mm[Hg] Dr. Xiang Rogers Work Phone: [facility] 05-21-2022 01:34-0500 Body height 180.[address] Xiang Rogers Work Phone: [facility] 05-21-2022 01:34-0500 Body mass index (BMI) [Ratio] 29.1 kg/m2 Dr. Xiang Rogers Work Phone: [facility] 05-21-2022 01:34-0500 Body temperature 98.8 [degF] Dr. Xiang Rogers Work Phone: [facility] 05-21-2022 01:34-0500 Body weight 94.[address] Xiang Rogers Work Phone: [facility] 05-21-2022 01:34-0500 Diastolic blood pressure 79 mm[Hg] Dr. Xiang Rogers Work Phone: [facility] 05-21-2022 01:34-0500 Heart rate 74 /min Dr. Xiang Rogers Work Phone: [facility] 05-21-2022 01:34-0500 Respiratory rate 17 /min Dr. Xiang Rogers Work Phone: [facility] 05-21-2022 01:34-0500 SaO2% (BldA) [Mass fraction] 98 % Dr. Xiang Rogers Work Phone: [facility] 05-21-2022 01:34-0500 Systolic blood pressure 143 mm[Hg] Dr. Xiang Rogers Work Phone: [facility] 05-19-2022 13:35-0500 Body mass index (BMI) [Ratio] 28.5 kg/m2 Dr. Xiang Rogers Work Phone: [facility] 05-19-2022 13:35-0500 Body weight 92.[address] Xiang Rogers Work Phone: [facility] 05-19-2022 13:35-0500 Diastolic blood pressure 69 mm[Hg] Dr. Xiang Rogers Work Phone: [facility] 05-19-2022 13:35-0500 Heart rate 62 /min Dr. Xiang Rogers Work Phone: [facility] 05-19-2022 13:35-0500 Respiratory rate 18 /min Dr. Xiang Rogers Work Phone: [facility] 05-19-2022 13:35-0500 SaO2% (BldA) [Mass fraction] 96 % Dr. Xiang Rogers Work Phone: [facility] 05-19-2022 13:35-0500 Systolic blood pressure 128 mm[Hg] Dr. Xiang Rogers Work Phone: [facility] 04-24-2022 13:27-0500 Body mass index (BMI) [Ratio] 28.3 kg/m2 Dr. Xiang Rogers Work Phone: [facility] 04-24-2022 13:27-0500 Body temperature 98.3 [degF] Dr. Xiang Rogers Work Phone: [facility] 04-24-2022 13:27-0500 Body weight 92.[address] Xiang Rogers Work Phone: [facility] 04-24-2022 13:27-0500 Diastolic blood pressure 62 mm[Hg] Dr. Xiang Rogers Work Phone: [facility] 04-24-2022 13:27-0500 Heart rate 61 /min Dr. Xiang Rogers Work Phone: [facility] 04-24-2022 13:27-0500 Respiratory rate 14 /min Dr. Xiang Rogers Work Phone: [facility] 04-24-2022 13:27-0500 SaO2% (BldA) [Mass fraction] 97 % Dr. Xiang Rogers Work Phone: [facility] 04-24-2022 13:27-0500 Systolic blood pressure 104 mm[Hg] Dr. Xiang Rogers Work Phone: [facility] 04-19-2022 14:53-0500 SaO2% (BldA) [Mass fraction] 95 % Dr. Xiang Rogers Work Phone: [facility] 04-19-2022 09:30-0500 Body temperature 97.9 [degF] Dr. Xiang Rogers Work Phone: [facility] 04-19-2022 09:30-0500 Diastolic blood pressure 77 mm[Hg] Dr. Xiang Rogers Work Phone: [facility] 04-19-2022 09:30-0500 Heart rate 79 /min Dr. Xiang Rogers Work Phone: [facility] 04-19-2022 09:30-0500 Respiratory rate 20 /min Dr. Xiang Rogers Work Phone: [facility] 04-19-2022 09:30-0500 Systolic blood pressure 110 mm[Hg] Dr. Xiang Rogers Work Phone: [facility] 04-18-2022 10:11-0500 Body weight 93.[address] Xiang Rogers Work Phone: [facility] 04-18-2022 05:51-0500 Body temperature 98 [degF] Dr. Xiang Rogers Work Phone: [facility] Work Phone: 04-18-2022 05:51-0500 Diastolic blood pressure 76 mm[Hg] Dr. Xiang Rogers Work Phone: [facility] Work Phone: 04-18-2022 05:51-0500 Heart rate 80 /min Dr. Xiang Rogers Work Phone: [facility] Work Phone: 04-18-2022 05:51-0500 Respiratory rate 18 /min Dr. Xiang Rogers Work Phone: [facility] Work Phone: 04-18-2022 05:51-0500 SaO2% (BldA) [Mass fraction] 92 % Dr. Xiang Rogers Work Phone: [facility] Work Phone: 04-18-2022 05:51-0500 Systolic blood pressure 123 mm[Hg] Dr. Xiang Rogers Work Phone: [facility] Work Phone: 04-18-2022 01:36-0500 Body height 180.[address] Xiang Rogers Work Phone: [facility] Work Phone: 04-18-2022 01:36-0500 Body mass index (BMI) [Ratio] 28.6 kg/m2 Dr. Xiang Rogers Work Phone: [facility] 04-18-2022 01:36-0500 Body weight 93.[address] Xiang Rogers Work Phone: [facility] Work Phone: 04-09-2022 14:00-0500 Body mass index (BMI) [Ratio] 27.4 kg/m2 Dr. Xiang Rogers Work Phone: [facility] 04-09-2022 14:00-0500 Body temperature 98.4 [degF] Dr. Xiang Rogers Work Phone: [facility] 04-09-2022 14:00-0500 Body weight 89.[address] Xiang Rogers Work Phone: [facility] 04-09-2022 14:00-0500 Diastolic blood pressure 78 mm[Hg] Dr. Xiang Rogers Work Phone: [facility] 04-09-2022 14:00-0500 Heart rate 65 /min Dr. Xiang Rogers Work Phone: [facility] 04-09-2022 14:00-0500 Respiratory rate 16 /min Dr. Xiang Rogers Work Phone: [facility] 04-09-2022 14:00-0500 SaO2% (BldA) [Mass fraction] 99 % Dr. Xiang Rogers Work Phone: [facility] 04-09-2022 14:00-0500 Systolic blood pressure 132 mm[Hg] Dr. Xiang Rogers Work Phone: [facility] 03-11-2022 12:30-0500 Body height 180.[address] Xiang Rogers Work Phone: [facility] Work Phone: 03-11-2022 12:30-0500 Body mass index (BMI) [Ratio] 26.9 kg/m2 Dr. Xiang Rogers Work Phone: [facility] 03-11-2022 12:30-0500 Body temperature 98 [degF] Dr. Xiang Rogers Work Phone: [facility] 03-11-2022 12:30-0500 Body weight 87.[address] Xiang Rogers Work Phone: [facility] 03-11-2022 12:30-0500 Diastolic blood pressure 76 mm[Hg] Dr. Xiang Rogers Work Phone: [facility] 03-11-2022 12:30-0500 Heart rate 87 /min Dr. Xiang Rogers Work Phone: [facility] 03-11-2022 12:30-0500 Respiratory rate 16 /min Dr. Xiang Rogers Work Phone: [facility] 03-11-2022 12:30-0500 SaO2% (BldA) [Mass fraction] 97 % Dr. Xiang Rogers Work Phone: [facility] 03-11-2022 12:30-0500 Systolic blood pressure 153 mm[Hg] Dr. Xiang Rogers Work Phone: [facility] 03-01-2022 19:47-0500 Body height 180.[address] Xiang Rogers Work Phone: [facility] Work Phone: 03-01-2022 19:47-0500 Body mass index (BMI) [Ratio] 27.9 kg/m2 Dr. Xiang Rogers Work Phone: [facility] 03-01-2022 19:47-0500 Body temperature 96.8 [degF] Dr. Xiang Rogers Work Phone: [facility] 03-01-2022 19:47-0500 Body weight [address] Xiang Rogers Work Phone: [facility] 03-01-2022 19:47-0500 Diastolic blood pressure 75 mm[Hg] Dr. Xiang Rogers Work Phone: [facility] 03-01-2022 19:47-0500 Heart rate 103 /min Dr. Xiang Rogers Work Phone: [facility] 03-01-2022 19:47-0500 Respiratory rate 16 /min Dr. Xiang Rogers Work Phone: [facility] 03-01-2022 19:47-0500 SaO2% (BldA) [Mass fraction] 94 % Dr. Xiang Rogers Work Phone: [facility] 03-01-2022 19:47-0500 Systolic blood pressure 141 mm[Hg] Dr. Xiang Rogers Work Phone: [facility] 02-04-2022 08:30-0400 Body temperature 98.01 [degF] Yamilka Parekh MD Work Phone: [facility] 02-04-2022 08:30-0400 Body weight 87.18 kg Yamilka Parekh MD Work Phone: [facility] 02-04-2022 08:30-0400 Diastolic blood pressure 74 mm[Hg] Yamilka Parekh MD Work Phone: [facility] 02-04-2022 08:30-0400 Heart rate 80 /min Yamilka Parekh MD Work Phone: [facility] 02-04-2022 08:30-0400 SaO2% (BldA) [Mass fraction] 98 % Yamilka Parekh MD Work Phone: [facility] 02-04-2022 08:30-0400 Systolic blood pressure 128 mm[Hg] Yamilka Parekh MD Work Phone: [facility] 01-28-2022 10:40-0400 Body height 180.3 cm Yamlika Parekh MD Work Phone: [facility] 01-28-2022 10:40-0400 Body temperature 97.3 [degF] Yamilka Parekh MD Work Phone: [facility] 01-28-2022 10:40-0400 Body weight 87.36 kg Yamilka Parekh MD Work Phone: [facility] 01-28-2022 10:40-0400 Diastolic blood pressure 70 mm[Hg] Yamilka Parekh MD Work Phone: [facility] 01-28-2022 10:40-0400 Heart rate 79 /min Yamilka Parekh MD Work Phone: [facility] 01-28-2022 10:40-0400 SaO2% (BldA) [Mass fraction] 98 % Yamilka Parekh MD Work Phone: [facility] 01-28-2022 10:40-0400 Systolic blood pressure 124 mm[Hg] Yamilka Parekh MD Work Phone: [facility] 01-06-2022 09:25-0400 Body height 180.3 cm Yamilka Parekh MD Work Phone: [facility] 01-06-2022 09:25-0400 Body temperature 97.7 [degF] Yamilka Parekh MD Work Phone: [facility] 01-06-2022 09:25-0400 Body weight 88.27 kg Yamilka Parekh MD Work Phone: [facility] 01-06-2022 09:25-0400 Diastolic blood pressure 77 mm[Hg] Yamilka Parekh MD Work Phone: [facility] 01-06-2022 09:25-0400 Heart rate 84 /min Yamilka Parekh MD Work Phone: [facility] 01-06-2022 09:25-0400 SaO2% (BldA) [Mass fraction] 99 % Yamilka Parekh MD Work Phone: [facility] 01-06-2022 09:25-0400 Systolic blood pressure 160 mm[Hg] Yamilka Parekh MD Work Phone: [facility] 01-01-2022 14:08-0400 Body height 180.[address] Xiang Rogers Work Phone: [facility] Work Phone: 01-01-2022 14:08-0400 Body mass index (BMI) [Ratio] 27.3 kg/m2 Dr. Xiang Rogers Work Phone: [facility] Work Phone: 01-01-2022 14:08-0400 Body temperature 98.5 [degF] Dr. Xiang Rogers Work Phone: [facility] Work Phone: 01-01-2022 14:08-0400 Body weight 89.[address] Xiang Rogers Work Phone: [facility] Work Phone: 01-01-2022 14:08-0400 Diastolic blood pressure 64 mm[Hg] Dr. Xiang Rogers Work Phone: [facility] Work Phone: 01-01-2022 14:08-0400 Heart rate 64 /min Dr. Xiang Rogers Work Phone: [facility] Work Phone: 01-01-2022 14:08-0400 Respiratory rate 18 /min Dr. Xiang Rogers Work Phone: [facility] Work Phone: 01-01-2022 14:08-0400 SaO2% (BldA) [Mass fraction] 95 % Dr. Xiang Rogers Work Phone: [facility] Work Phone: 01-01-2022 14:08-0400 Systolic blood pressure 122 mm[Hg] Dr. Xiang Rogers Work Phone: [facility] Work Phone: 12-09-2021 01:16-0400 Diastolic blood pressure 71 mm[Hg] Dr. Xiang Rogers Work Phone: [facility] Work Phone: 12-09-2021 01:16-0400 Heart rate 74 /min Dr. Xiang Rogers Work Phone: [facility] Work Phone: 12-09-2021 01:16-0400 Respiratory rate 19 /min Dr. Xiang Rogers Work Phone: [facility] Work Phone: 12-09-2021 01:16-0400 SaO2% (BldA) [Mass fraction] 95 % Dr. Xiang Rogers Work Phone: [facility] Work Phone: 12-09-2021 01:16-0400 Systolic blood pressure 144 mm[Hg] Dr. Xiang Rogers Work Phone: [facility] Work Phone: 12-08-2021 23:18-0400 Body height 180.[address] Xiang Rogers Work Phone: [facility] Work Phone: 12-08-2021 23:18-0400 Body mass index (BMI) [Ratio] 26.4 kg/m2 Dr. Xiang Rogers Work Phone: [facility] Work Phone: 12-08-2021 23:18-0400 Body temperature 97.9 [degF] Dr. Xiang Rogers Work Phone: [facility] Work Phone: 12-08-2021 23:18-0400 Body weight 86.[address] Xiang Rogers Work Phone: [facility] Work Phone: 09-18-2021 14:32-0400 Body mass index (BMI) [Ratio] 26.7 kg/m2 Dr. Xiang Rogers Work Phone: [facility] Work Phone: 09-18-2021 14:32-0400 Body temperature 97.2 [degF] Dr. Xiang Rogers Work Phone: [facility] Work Phone: 09-18-2021 14:32-0400 Body weight 87.[address] Xiang Rogers Work Phone: [facility] Work Phone: 09-18-2021 14:32-0400 Diastolic blood pressure 70 mm[Hg] Dr. Xiang Rogers Work Phone: [facility] Work Phone: 09-18-2021 14:32-0400 Heart rate 86 /min Dr. Xiang Rogers Work Phone: [facility] Work Phone: 09-18-2021 14:32-0400 Respiratory rate 16 /min Dr. Xiang Rogers Work Phone: [facility] Work Phone: 09-18-2021 14:32-0400 SaO2% (BldA) [Mass fraction] 97 % Dr. Xiang Rogers Work Phone: [facility] Work Phone: 09-18-2021 14:32-0400 Systolic blood pressure 116 mm[Hg] Dr. Xiang Rogers Work Phone: [facility] Work Phone: 07-19-2021 00:14-0400 Heart rate 78 /min Dr. Xiang Rogers Work Phone: [facility] Work Phone: 07-19-2021 00:14-0400 Respiratory rate 18 /min Dr. Xiang Rogers Work Phone: [facility] Work Phone: 07-19-2021 00:14-0400 SaO2% (BldA) [Mass fraction] 95 % Dr. Xiang Rogers Work Phone: [facility] Work Phone: 07-18-2021 20:48-0400 Body height 180.[address] Xiang Rogers Work Phone: [facility] Work Phone: 07-18-2021 20:48-0400 Body mass index (BMI) [Ratio] 26.9 kg/m2 Dr. Xiang Rogers Work Phone: [facility] Work Phone: 07-18-2021 20:48-0400 Body temperature 98.8 [degF] Dr. Xiang Rogers Work Phone: [facility] Work Phone: 07-18-2021 20:48-0400 Body weight 87.[address] Xiang Rogers Work Phone: [facility] Work Phone: 07-18-2021 20:48-0400 Diastolic blood pressure 83 mm[Hg] Dr. Xiang Rogers Work Phone: [facility] Work Phone: 07-18-2021 20:48-0400 Systolic blood pressure 151 mm[Hg] Dr. Xiang Rogers Work Phone: [facility] Work Phone: 07-18-2021 12:52-0400 Body temperature 98.01 [degF] [facility] MENTAL HYGIENE CONSULTANT.PRESS OPERATOR APPRENTICE Work Phone: [facility] 07-18-2021 12:52-0400 Body weight 88 kg [facility] MENTAL HYGIENE CONSULTANT.PRESS OPERATOR APPRENTICE Work Phone: [facility] 07-18-2021 12:52-0400 Diastolic blood pressure 74 mm[Hg] [facility] MENTAL HYGIENE CONSULTANT.PRESS OPERATOR APPRENTICE Work Phone: [facility] 07-18-2021 12:52-0400 Heart rate 100 /min Gab Shannonalton MENTAL HYGIENE CONSULTANT.PRESS OPERATOR APPRENTICE Work Phone: [facility] 07-18-2021 12:52-0400 Respiratory rate 18 /min [facility] MENTAL HYGIENE CONSULTANT.PRESS OPERATOR APPRENTICE Work Phone: [facility] 07-18-2021 12:52-0400 SaO2% (BldA) [Mass fraction] 96 % [facility] MENTAL HYGIENE CONSULTANT.PRESS OPERATOR APPRENTICE Work Phone: [facility] 07-18-2021 12:52-0400 Systolic blood pressure 122 mm[Hg] Gabpari Ortegaalton MENTAL HYGIENE CONSULTANT.PRESS OPERATOR APPRENTICE Work Phone: [facility] 06-13-2021 13:57-0500 Body temperature 97.8 [degF] Dr. Xiang Rogers Work Phone: [facility] Work Phone: 06-13-2021 13:57-0500 Body weight 88.[address] Xiang Rogers Work Phone: [facility] Work Phone: 06-13-2021 13:57-0500 Diastolic blood pressure 74 mm[Hg] Dr. Xiang Rogers Work Phone: [facility] Work Phone: 06-13-2021 13:57-0500 Heart rate 68 /min Dr. Xiang Rogers Work Phone: [facility] Work Phone: 06-13-2021 13:57-0500 Respiratory rate 16 /min Dr. Xiang Rogers Work Phone: [facility] Work Phone: 06-13-2021 13:57-0500 SaO2% (BldA) [Mass fraction] 98 % Dr. Xiang Rogers Work Phone: [facility] Work Phone: 06-13-2021 13:57-0500 Systolic blood pressure 130 mm[Hg] Dr. Xiang Rogers Work Phone: [facility] Work Phone: Encounters Encounter Date Encounter Type Care Provider Facility Start: 12-29-2024 ambulatory Xiang Rogers Facilit y:[facility] Start: 12-19-2024 ambulatory [facility] Facility:[facility] Start: 12-19-2024 Evaluation and manag ement of inpatient Jeffery Eligio Facility:[facility] Start: 11-30-2024 ambulatory Xiang Rogers Facilit y:[facility] Start: 11-28-2024 ambulatory Xiang Rogers Facilit y:[facility] Start: 11-22-2024 ambulatory Xiang Rogers Facilit y:[facility] Start: 11-22-2024 End: 12-08-2024 Evaluation and management of inpatient Dr. Xiang Rogers DO Work Phone: -Progressive Care Unit Start: 11-22-2024 Dr. Flori Johnson MD - [facility] Work Phone: Start: 11-16-2024 End: 11-16-2024 Lubna DEVINE -[facility] Work Phone: Start: 11-16-2024 End: 11-16-[address] Xiang Rogers DO Work Phone: -[facility] Start: 11-14-2024 Dr. Xiang Will DO -[facility] Work Phone: Start: 11-14-2024 ambulatory Xiang Rogers Facilit y:[facility] Start: 11-13-2024 Dr. Steve Fields MD [facility] Work Phone: Start: 11-12-2024 Dr. Steve Fields MD [facility] Work Phone: Start: 11-11-2024 Dr. Buck Trevino MD -[facility] Start: 11-11-2024 Dr. Steve Fields MD [facility] Work Phone: Start: 11-10-2024 ambulatory Xiang Rogers Facilit y:[facility] Start: 11-10-2024 End: 11-13-2024 Evaluation and management of inpatient Dr. Xiang Rogers DO Work Phone: -Progressive Care Unit Start: 11-10-2024 End: 11-13-2024 Dr. Corazon Diaz MD -[facility] Work Phone: Start: 11-10-2024 End: 11-10-2024 Leah Bashir NP-C -[facility] Work Phone: Start: 11-10-2024 End: 11-10-[address] Xiang Rogers DO Work Phone: -[facility] Start: 11-04-2024 End: 11-04-2024 Dr. Xiang Will DO -[facility] Work Phone: Start: 11-04-2024 End: 11-04-[address] Xiang Rogers DO Work Phone: -[facility] Start: 11-03-2024 End: 11-03-2024 Magaly DEVINE -[facility] Work Phone: Start: 11-03-2024 End: 11-03-[address] Xiang Rogers DO Work Phone: -[facility] Start: 10-26-2024 End: 10-27-2024 Dr. Xiang Rogers DO Work Phone: -Emergency Department Work Phone: Start: 10-26-2024 End: 10-27-2024 Emergency department patient visit Dr. Xiang Rogers DO Work Phone: -Emergency Department Start: 10-23-2024 End: 10-23-2024 Dr. iXang Rogers DO Work Phone: -Emergency Department Work [...] Start: 10-11-2024 ambulatory Ronit Galvez NP Facili ty:[facility] Start: 09-27-2024 End: 09-27-2024 Magaly DEVINE -[facility] Work Phone: Start: 09-27-2024 End: 09-27-[address] Xiang Rogers DO Work Phone: [facility] Work Phone: Start: 09-21-2024 Dr. Donna Wolff MD -[facility] Work Phone: Start: 09-20-2024 Dr. Seth morales DO -[facility] Work Phone: Start: 09-19-2024 ambulatory Xiang Rogers Facilit y:[facility] Start: 09-19-2024 Dr. Seth morales DO -[facility] Work Phone: Start: 09-18-2024 End: 09-21-2024 ambulatory Xiang Rogers Facility:[facility] Start: 09-18-2024 End: 09-21-2024 Evaluation and management of inpatient Dr. Xiang Rogers DO Work Phone: [facility] Work Phone: Start: 09-18-2024 End: 09-21-2024 Dr. Clinton Soares DO -Progressive Care Unit Work Phone: Start: 09-08-2024 End: 09-08-[address] Xiang Rogers DO Work Phone: [facility] Work Phone: Start: 09-08-2024 End: 09-08-2024 Dr. Saúl Flowers MD -[facility] Start: 09-08-2024 End: 09-08-2024 ambulatory Lubna Manley Facility:[facility] Start: 08-02-2024 End: 08-02-2024 Dr. Xiang Will DO -[facility] Work Phone: Start: 08-02-2024 End: 08-02-2024 ambulatory Xiang Rogers Facility:[facility] Start: 07-29-2024 End: 07-29-2024 Dr. Lawson Castellon DO -Emergency Departmen t Work Phone: Start: 07-29-2024 End: 07-29-2024 Emergency department patient visit Lawson Castellon Facility:[facility] Start: 07-14-2024 End: 07-14-2024 Lubna Manley ID -[facility] Work Phone: Start: 07-14-2024 End: 07-14-2024 ambulatory Lubna Manley Facility:[facility] Start: 07-12-2024 End: 07-12-2024 Ronit Galvez HOME SALES CONSULTANT-C -[facility] Work Phone: Start: 07-12-2024 End: 07-12-2024 ambulatory Ronit Galvez HOME SALES CONSULTANT [facility] Start: 06-20-2024 ambulatory Xiang Rogers Facilit y:[facility] Start: 06-20-2024 Dr. Seth morales DO -[facility] Work Phone: Start: 06-20-2024 Dr. Calos Quinn MD -[facility] Start: 06-19-2024 Dr. Alexandru Mckeon MD [facility] Start: 06-19-2024 Dr. Donna Wolff MD -[facility] Work Phone: Start: 06-18-2024 ambulatory Alexandru Acosta cility[facility] Start: 06-18-2024 Dr. Alexandru Mckeon MD -[facility] Start: 06-18-2024 ambulatory Steve Esteban Facili ty:[facility] Start: 06-18-2024 End: 06-20-2024 Evaluation and management of inpatient Steve Esteban Facility:[facility] Start: 06-18-2024 End: 06-20-2024 Dr. Seth Carrington DO -Progressive Care Unit Work Phone: Start: 06-15-2024 ambulatory Calos Quinn Facility:[facility] Start: 06-15-2024 Non-patient / Non-visit Garret Saldana [facility] Start: 06-15-2024 Magaly DEVINE [facility] Start: 06-13-2024 Non-patient / Non-visit Dr. Saúl talbert MD -[facility] Start: 06-13-2024 End: 06-13-[address] Xiang Rogers DO Work Phone: [facility] Work Phone: Start: 06-13-2024 End: 06-13-2024 Patient encounter procedure Lubna DEVINE -[facility] Work Phone: Start: 06-13-2024 End: 06-13-2024 Dr. Saúl Flowers MD -[facility] Start: 06-13-2024 End: 06-13-2024 ambulatory Lubna Manley Facility:[facility] Start: 06-07-2024 ambulatory Xiang Rogers Facilit y:[facility] Start: 05-21-2024 End: 05-21-2024 Dr. Saúl Aguilar DO -Emergency Departme nt Work Phone: Start: 05-21-2024 End: 05-21-2024 Emergency department patient visit Dr. Saúl Aguilar DO -Emergency Department Work Phone: Start: 05-17-2024 End: 05-17-2024 Patient encounter procedure Lubna DEVINE -[facility] Work Phone: Start: 05-17-2024 End: 05-17-2024 Lubna DEVINE -[facility] Work Phone: Start: 05-17-2024 End: 05-17-2024 ambulatory Xiang Rogers Facility:[facility] Start: 05-09-2024 ambulatory Xiang Rogers Facilit y:[facility] Start: 05-09-2024 Non-patient / Non-visit Dr. Ren [place] -[facility] Start: 05-09-2024 End: 05-09-2024 Patient encounter procedure Magaly DEVINE -[facility] Work Phone: Start: 05-09-2024 End: 05-09-2024 ambulatory Xiang Rogers Facility:[facility] Start: 05-03-2024 End: 05-03-[address] Xiang Will DO -[facility] Work Phone: Start: 05-03-2024 End: 05-03-2024 ambulatory Xiang Rogers Facility:[facility] Start: 04-20-2024 ambulatory Xiang Rogers Facilit y:[facility] Start: 04-20-2024 Non-patient / Non-visit Dr. Saúl talbert MD -[facility] Start: 04-20-2024 End: 04-20-2024 Admission to same day surgery center Dr. Saúl Flowers MD -Weed Control Inspector/Special Procedures Work Phone: Start: 04-20-2024 End: 04-20-2024 ambulatory Xiang Rogers Facility:[facility] Start: 04-08-2024 End: 04-08-2024 Patient encounter procedure Lubna DEVINE -[facility] Work Phone: Start: 04-08-2024 End: 04-08-2024 ambulatory Xiang Rogers Facility:[facility] Start: 04-01-2024 End: 04-01-2024 Patient encounter procedure Magaly DEVINE -[facility] Work Phone: Start: 04-01-2024 End: 04-01-2024 ambulatory Xiang Rogers [facility] Start: 03-29-2024 End: 03-29-2024 Patient encounter procedure [facility]na DEVINE [facility] Work [facility]: Start: 03-29-2024 End: 03-29-2024 ambulatory Lubna Manley Facility:[facility] Start: 03-22-2024 End: 03-22-2024 Patient encounter procedure Lubna DEVINE -[facility] Work Phone: Start: 03-22-2024 End: 03-22-2024 ambulatory Xiang Rogers Facility:[facility] Start: 03-09-2024 ambulatory Xiang Rogers Facilit y:[facility] Start: 03-09-2024 Non-patient / Non-visit Dr. Saúl talbert MD -[facility] Start: 03-09-2024 End: 03-09-2024 Patient encounter procedure Jose Small DPM -Cardiovascular Services Work Phone: Start: 03-09-2024 End: 03-09-2024 ambulatory Xiang Rogers Facility:[facility] Start: 02-24-2024 End: 02-24-[address] Xiang Will DO -[facility] Work Phone: Start: 02-24-2024 End: 02-24-2024 ambulatory Xiang Rogers Facility:[facility] Start: 02-24-2024 End: 02-24-2024 Patient encounter procedure Lubna DEVINE -[facility] Work Phone: Start: 02-24-2024 End: 02-24-2024 ambulatory Xiang Rogers Facility:[facility] Start: 02-23-2024 End: 02-23-2024 ambulatory Xiang Rogers Facility:[facility] Start: 01-27-2024 ambulatory Xiang Rogers Facilit y:[facility] Start: 01-07-2024 End: 01-07-2024 ambulatory Xiang Rogers Facility:[facility] Start: 12-31-2023 End: 12-31-2023 Office outpatient visit 25 minutes Gab Culver APRN.[facility] Work Phone: [facility] Comment on above: Sinobronchitis (Prim jagjit Dx) Start: 06-02-2023 End: 06-02-[address] Xiang Rogers Work Phone: [facility] Work Phone: Start: 06-02-2023 End: 06-02-[address] Xiang Rogers Work Phone: [facility] Work Phone: Start: 05-24-2023 End: 05-24-2023 Emergency department patient visit Dr. Xiang Rogers Work Phone: [facility]-Emergency Department Work Phone: Start: 04-25-2023 End: 04-25-2023 Emergency department patient visit Dr. Xiang Rogers Work Phone: [facility]-Emergency Department Work Phone: Start: 04-15-2023 End: 04-15-[address] Xiang Rogers Work Phone: [facility] Work Phone: Start: 04-15-2023 End: 04-15-[address] Xiang Rogers Work Phone: [facility] Work Phone: Start: 01-26-2023 End: 01-26-[address] Xiang Rogers Work Phone: [facility] Work Phone: Start: 01-13-2023 End: 01-13-[address] Xiang Rogers Work Phone: [facility] Work Phone: Start: 06-02-2022 End: 06-02-[address] Xiang Rogers Work Phone: [facility] Work Phone: Start: 06-02-2022 End: 06-02-[address] Xiang Rogers Work Phone: [facility]-Laboratory Start: 05-23-2022 Non-patient / Non-visit Dr. Velazquez Work Phone: [facility] Start: 05-21-2022 End: 05-21-2022 Emergency department patient visit Dr. Xiang Rogers Work Phone: [facility]-Emergency Department Start: 05-19-2022 End: 05-19-[address] Xiang Rogers Work Phone: [facility] Start: 04-24-2022 End: 04-24-[address] Xiang Rogers Work Phone: [facility] Internal Medicine Start: 04-21-2022 Non-patient / Non-visit Dr. Velazquez Work Phone: [facility] Start: 04-19-2022 Non-patient / Non-visit Dr. Velazquez Work Phone: [facility] Start: 04-19-2022 Non-patient / Non-visit Dr. Velazquez Work Phone: [facility] Inpatient Physicians Start: 04-18-2022 Non-patient / Non-visit Dr. Velazquez Work Phone: [facility] Start: 04-18-2022 End: 04-19-2022 Evaluation and management of inpatient Dr. Xiang Rogers Work Phone: [facility]-Intensive Care Unit Start: 04-09-2022 End: 04-09-[address] Xiang Rogers Work Phone: [facility] Internal Medicine Start: 03-11-2022 End: 03-11-[address] Xiang Rogers Work Phone: [facility] Work Phone: Start: 03-11-2022 End: 03-11-[address] Xiang Rogers Work Phone: [facility] Start: 03-01-2022 End: 03-01-2022 Emergency department patient visit Dr. Xiang Rogers Work Phone: [facility]-Emergency Department Start: 02-04-2022 End: 02-04-2022 ambulatory YAMILKA PAREKH Facility:[facility] Start: 02-04-2022 End: 02-04-2022 Patient encounter procedure Yamilka Parekh MD Work Phone: General Surgery Comment on above: Recurrent left ingui nal hernia (Primary Dx) Start: 01-28-2022 End: 01-28-2022 ambulatory YAMILKA PAREKH Facility:[facility] Start: 01-28-2022 End: 01-28-2022 Patient encounter procedure Yamilka Parekh MD Work Phone: General Surgery Comment on above: Left groin pain (Ruchi frantz Dx) Start: 01-28-2022 End: 01-28-2022 Subsequent hospital visit by physician [facility] (I-Stat) Work Phone: Cat Scan Comment on above: Left groin pain [R10 .32] Start: 01-08-2022 Non-patient / Non-visit Dr. Velazquez Work Phone: [facility] Start: 01-06-2022 End: 01-06-2022 ambulatory YAMILKA PAREKH Facility:[facility] Start: 01-06-2022 End: 01-06-2022 Patient encounter procedure Yamilka Parekh MD Work Phone: General Surgery Comment on above: Left groin pain (Ruchi frantz Dx) Start: 01-01-2022 End: 01-01-[address] Xiang Rogers Work Phone: [facility] Work Phone: Start: 01-01-2022 End: 01-01-[address] Xiang Rogers Work Phone: [facility] Internal [facility] Start: 12-08-2021 End: 12-09-2021 Emergency department patient visit Dr. Xiang Rogers Work Phone: [facility]-Emergency Department Start: 09-18-2021 End: 09-18-[address] Xiang Rogers Work Phone: [facility] Start: 07-18-2021 End: 07-19-2021 Emergency department patient visit Dr. Xiang Rogers Work Phone: [facility]-Emergency Department Start: 07-18-2021 End: 07-18-2021 ambulatory YAMILKA PAREKH Facility:[facility] Start: 07-18-2021 End: 07-18-2021 Patient encounter procedure Gab Culver APRN.CNP Work Phone: [facility] Comment on above: URI with cough and c ongestion (Primary Dx) Start: 06-13-2021 End: 06-13-[address] Xiang Rogers Work Phone: [facility]atory, [facility] Start: 04-01-2021 End: 04-01-2021 ambulatory YAMILKA PAREKH [facility] Procedures Date Procedure Procedure Detail Performing Clinician Start: 11-22-2024 Plain x-ray of pelvi s and lower extremity Dr. Xiang Rogers DO Work Phone: Start: 11-22-2024 Plain chest X-ray Dr. Jovana Rogers DO Work Phone: Start: 11-22-2024 End: 11-22-[address] Xiang Rogers DO Work Phone: Start: 11-22-2024 Calculation of international normalized ratio Dr. Xiang Rogers DO Work Phone: Start: 11-22-[address] Xiang Rogers DO Work Phone: Start: 11-22-2024 Mean corpuscular hemoglobin concentration determination Dr. Xiang Rogers DO Work Phone: Start: 11-22-2024 Nucleated red blood cell count procedure Dr. Xiang Rogers DO Work Phone: Start: 11-22-2024 Platelet mean volume determination Dr. Xiang Rogers DO Work Phone: Start: 11-13-2024 Blood count smear mc rscp w/mnl difrntl wbc count Dr. Xiang Rogers DO Work Phone: Start: 11-13-[address] Xiang Rogers DO Work Phone: Start: 11-13-2024 Mean corpuscular hemoglobin concentration determination Dr. Xiang Rogers DO Work Phone: Start: 11-13-2024 Nucleated red blood cell count procedure Dr. Xiang Rogers DO Work Phone: Start: 11-13-2024 Platelet mean volume determination Dr. Xiang Rogers DO Work Phone: Start: 11-12-2024 Serum inorganic phos phate measurement Dr. Xiang Rogers DO Work Phone: Start: 11-11-[address] Xiang Rogers DO Work Phone: Start: 11-11-2024 Total cholesterol:HD L ratio measurement Dr. Xiang Rogers DO Work Phone: Start: 11-10-2024 Carbon dioxide measurement, partial pressure Dr. Xiang Rogers DO Work Phone: Start: 11-10-2024 Gases blood o2 satur ation only direct brenda Dr. Xiang Rogers DO Work Phone: Start: 11-10-2024 Measurement of parti al pressure of oxygen in blood Dr. Xiang Rogers DO Work Phone: Start: 11-10-[address] 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 Xiang Rogers DO Work Phone: History of coronary artery bypass grafting Dr. Seth Carrington DO History of coronary artery bypass grafting Dr. Xiang Rogers DO Work Phone: SARS-CoV-2 & FLU Ant igen (Rapid) Dr. Xiang Rogers Work Phone: Plan of Treatment Date Care Activity Detail Author Start: 04-25-2033 Urine microalbumin profile DTaP,Tdap,Td Vaccine (3 - Td or Tdap) [facility] Start: 11-22-2024 Admission procedure [facility] Start: 11-22-2024 Hospital admission, emergency, from emergency room, medical nature [facility] Start: 11-22-2024 End: 11-22-2024 [facility] Start: 11-13-2024 Patient discharge [facility] Start: 11-13-2024 Physiotherapy of chest [facility] Start: 11-11-2024 [facility] Start: 11-11-2024 Referral to wool grader [facility] Start: 11-10-2024 Following clinical pathway protocol [facility] Start: 11-10-2024 Application of elast ic bandage [facility] Start: 11-10-2024 Assessment of risk o f venous thromboembolism [facility] Start: 11-10-2024 Care regimes management [facility] Start: 11-10-2024 Consultation for treatment [facility] [facility] Start: 11-10-2024 Elevation of affecte d extremity [facility] Start: 11-10-2024 Inhalation therapy procedure [facility] Start: 11-10-2024 Insertion of cathete r into peripheral vein [facility] Start: 11-10-2024 Introduction of urin jagjit catheter [facility] Start: 11-10-2024 Measuring intake and output [facility] Start: 11-10-2024 Notification of physician [facility] Start: 11-10-2024 Oxygen therapy [facility] Start: 11-10-2024 Patient education [facility] Start: 11-10-2024 Patient referral to dietitian [facility] Start: 11-10-2024 Providing care accor ding to standard [facility] Start: 11-10-2024 Provision of activit y privileges [facility] Start: 11-10-2024 Referral to service [facility] Start: 11-10-2024 Tobacco use cessatio n education [facility] Start: 11-10-2024 Wound care [facility] Start: 11-10-2024 End: 11-10-2024 [facility] Start: 11-10-2024 Gas panel - Arterial blood [facility] Start: 11-10-2024 Verification routine [facility] Start: 11-10-2024 Admission procedure [facility] Start: 11-10-2024 Hospital admission, emergency, from emergency room, medical nature [facility] Start: 11-10-2024 [facility] Start: 11-10-2024 Patient referral to dietuab hospitalan [facility] Start: 10-27-2024 [facility] Start: 10-23-2024 [facility] Start: 10-21-2024 [facility] Start: 10-19-2024 [facility] Start: 09-21-2024 Patient discharge [facility] Start: 09-20-2024 [facility] Start: 09-19-2024 [facility] Start: 09-18-2024 Following clinical pathway protocol [facility] Start: 09-18-2024 Ambulation without limitation [facility] Start: 09-18-2024 Assessment of risk o f venous thromboembolism [facility] Start: 09-18-2024 Care regimes management [facility] Start: 09-18-2024 Insertion of cathete r into peripheral vein [facility] Start: 09-18-2024 Measuring intake and output [facility] Start: 09-18-2024 Notification of physician [facility] Start: 09-18-2024 Oxygen therapy [facility] Start: 09-18-2024 Providing care accor ding to standard [facility] Start: 09-18-2024 Referral to service [facility] Start: 09-18-2024 End: 09-18-2024 [facility] Start: 09-18-2024 Hospital admission, emergency, from emergency room, medical nature [facility] Start: 09-18-2024 Verification routine [facility] Start: 09-18-2024 Admission procedure [facility] Start: 09-18-2024 [facility] Start: 09-18-2024 Inhalation therapy procedure [facility] Start: 07-29-2024 [facility] Start: 07-29-2024 End: 07-29-2024 [facility] Start: 06-20-2024 Patient discharge [facility] Start: 06-19-2024 [facility] Start: 06-19-2024 [facility] Start: 06-18-2024 Assessment of risk o f venous thromboembolism [facility] Start: 06-18-2024 Care regimes management [facility] Start: 06-18-2024 Catheterization of vein [facility] Start: 06-18-2024 Continuous pulse oximetry [facility] Start: 06-18-2024 Elevation of head of bed [facility] Start: 06-18-2024 Insertion of cathete r into peripheral vein [facility] Start: 06-18-2024 Measuring intake and output [facility] Start: 06-18-2024 Notification of physician [facility] Start: 06-18-2024 Oxygen therapy [facility] Start: 06-18-2024 Providing care accor ding to standard [facility] Start: 06-18-2024 Referral to wool grader [facility] Start: 06-18-2024 Referral to service [facility] Start: 06-18-2024 Tobacco use cessatio n education [facility] Start: 06-18-2024 Vital signs measurements [facility] Start: 06-18-2024 End: 06-18-2024 [facility] Start: 06-18-2024 Following clinical pathway protocol [facility] Start: 06-18-2024 End: 06-18-2024 Admission procedure [facility] Start: 06-18-2024 Dual pressure sponta neous ventilation support [facility] Start: 06-18-2024 Consultation [facility] Start: 06-18-2024 Inhalation therapy procedure [facility] Start: 06-17-2024 End: 06-18-2024 [facility] Start: 06-11-2024 Urine microalbumin profile DTaP,Tdap,Td Vaccine (2 - Td or Tdap) [facility] Start: 05-21-2024 [facility] Start: 05-21-2024 Airborne precautions [facility] Start: 05-09-2024 Echo tthrc r-t 2d w/wom-mode compl spec&colr d TTE W/DOPPLER COMPLETE [facility] Start: 04-20-2024 Patient discharge [facility] Start: 12-06-2023 Covid-19 Vaccine ( season) Covid-19 Vaccine ( season) [facility] Start: 12-06-2023 Influenza vaccination Influenza Vacc ine (#1) [facility] Start: 05-24-2023 Incision & drainage abscess simple/single I&D ABSCESS SIMPLE/SINGLE [facility] Start: 05-24-2023 [facility] Start: 04-25-2023 [facility] Start: 12-05-2022 Influenza vaccination Influenza Vacc ine (#1) [facility] Start: 05-23-2022 Patient referral [facility] Work Phone: Start: 04-21-2022 Patient referral [facility] Work Phone: Start: 04-19-2022 Patient discharge [facility] Start: 04-18-2022 Patient discharge [facility] Start: 04-18-2022 End: 04-18-2022 Provision of activity privileges [facility] Start: 04-18-2022 Scheduling [facility] Start: 04-18-2022 Vascular disease ris k assessment [facility] Start: 04-18-2022 End: 04-18-2022 Notification of physician [facility] Start: 04-18-2022 Patient education [facility] Start: 04-18-2022 Pulse taking [facility] Start: 04-18-2022 End: 04-18-2022 Taking patient vital signs [facility] Start: 04-18-2022 Wound care [facility] Start: 04-18-2022 End: 04-18-2022 [facility] Start: 04-18-2022 Catheterization of vein [facility] Start: 04-18-2022 Medication not administered [facility] Start: 04-18-2022 Notification of physician [facility] Start: 04-18-2022 [facility] Start: 04-18-2022 Following clinical pathway protocol [facility] Start: 04-18-2022 Assessment of risk o f venous thromboembolism [facility] Start: 04-18-2022 Care regimes management [facility] Start: 04-18-2022 Inhalation therapy procedure [facility] Start: 04-18-2022 Insertion of cathete r into peripheral vein [facility] Start: 04-18-2022 Measuring intake and output [facility] Start: 04-18-2022 Oxygen therapy [facility] Start: 04-18-2022 Providing care accor ding to standard [facility] Start: 04-18-2022 Provision of activit y privileges [facility] Start: 04-18-2022 Referral to wool grader [facility] Start: 04-18-2022 Referral to occupati onal therapist [facility] Start: 04-18-2022 Referral to service [facility] Start: 04-18-2022 Tobacco use cessatio n education [facility] Start: 04-18-2022 [facility] Start: 04-18-2022 Verification routine [facility] Work Phone: Start: 04-18-2022 Admission procedure [facility] Start: 04-18-2022 [facility] Work Phone: Start: 04-06-2022 Depression Assessment [facility] Start: 12-05-2021 Influenza vaccination [facility] Start: 04-06-2021 DEPRESSION ASSESSMENT DEPRESSION ASS ESSMENT [facility] Start: 06-06-2020 PROSTATE CANCER SCRE ENING DISCUSSION PROSTATE CANCER SCREENING DISCUSSION [facility] Start: 06-06-2020 Prostate specific an tigen measurement Prostate Cancer Screening Discussion [facility] Start: 2020 Hepatitis B Vaccine (1 of 3 - Risk 3-dose series) Hepatitis B Vaccine (1 of 3 - Risk 3-dose series) [facility] Start: 2020 RSV Vaccine (1 - 1-d ose 60+ series) RSV Vaccine (1 - 1-dose 60+ series) [facility] Start: 2020 RSV Vaccine (1 - Ris k 60-74 years 1-dose series) RSV Vaccine (1 - Risk 60-74 years 1-dose series) [facility] Start: 06-18-2019 ANNUAL PCP TEAM [employer] MIAN DISEASE VISIT ANNUAL PCP TEAM CHRONIC DISEASE VISIT [facility] Start: 12-23-2017 Adult depression screening assessment DEPRESSION SCREENING [facility] Start: 01-13-2017 3 comp foot exam completed DIABETIC FOOT EXAM [facility] Start: 01-13-2017 Diabetic foot examination Diabetic F oot Exam [facility] Start: 01-13-2017 Hepatitis B surface antibody level LDL CHOLESTEROL [facility] Start: 10-08-2016 PNEUMOCOCCAL (2 - PCV) PNEUMOCOCCAL (2 - PCV) [facility] Start: 10-08-2016 Pneumococcal vaccination [facility] Start: 04-15-2016 Hemoglobin A1c measurement HbA1C [facility] Start: 04-15-2016 Hemoglobin A1c/Hemoglobin.total in Blood HBA1C [facility] Start: 01-22-2015 Influenza vaccination LUNG CANCER [facility] Start: 01-22-2010 Influenza vaccination LUNG CANCER [facility] Start: 01-22-2010 Screening for malign ant neoplasm of lung Lung Cancer Screening [facility] Start: 01-22-2010 SHINGRIX VACCINE (1 of 2) NOVA GRIX VACCINE (1 of 2) [facility] Start: 01-22-2005 COLOGUARD (FIT-DNA) COLOGUARD (FIT-D NA) [facility] Start: 01-22-2005 Colonoscopy COLONOSCOPY [facility] Start: 01-22-2005 COLORECTAL CANCER SCREENING COLORECTAL CANCER SCREENING [facility] Start: 01-22-[address] COLONOGRAPHY [facility] Start: 01-22-2005 FECAL OCCULT BLOOD FECAL OCCULT BLOO D [facility] Start: 01-22-2005 Screening for malign ant neoplasm of colon [facility] Start: 01-22-2005 SIGMOIDOSCOPY SIGMOIDOSCOPY [facility] Start: 01-22-1979 Urine microalbumin profile DTAP,TDAP,TD (1 - Tdap) [facility] Start: 01-22-1978 ANNUAL PCP TEAM [employer] MIAN DISEASE VISIT ANNUAL PCP TEAM CHRONIC DISEASE VISIT [facility] Start: 01-22-1978 Anxiety Screening Anxiety Screening [facility] Start: 01-22-1978 Depression Screening Depression Scre ening [facility] Start: 01-22-1978 HIV SCREENING HIV SCREENING [facility] Start: 01-22-1978 HIV screening HIV Screening [facility] Start: 01-22-1970 Glaucoma screening Dilated Retinal E xam [facility] Start: 01-22-1970 Hepatitis B screening URINE ALBUMIN:CREATININE RATIO [facility] Start: 01-22-1970 Hepatitis C antibody , confirmatory test DILATED RETINAL EXAM [facility] Start: 01-22-1965 COVID-19 VACCINE (1) COVID-19 VACCIN E (1) [facility] Start: 1960 COVID-19 VACCINE (#1) COVID-19 VACCI NE (#1) [facility]men [facility], [facility] End: 02-05-2023 Ct pelvis w/o contrast material CT PELVIS WO IVCON Radiology Routine Left groin pain 1 Occurrences starting 01/06/2022 until 02/05/2023 [facility] Work Phone: Comment on above: 1 Occurrences starti ng 01/06/2022 until 02/05/2023 Hemoglobin [Presence ] in Urine [facility] Hemoglobin A1c/Hemoglobin.total in Blood [facility] Work Phone: Hemoglobin A1c/Hemoglobin.total in Blood [facility] Lipid 1996 panel - S belinda or Plasma [facility] Measurement of keton es in urine using dipstick [facility] Microscopic urinalysis [facility] Patient Education [facility] Work Phone: Patient referral [facility] Work Phone: pH of Urine [facility] Specific gravity of Urine [facility] Troponin T.cardiac [Mass/volume] in Serum or Plasma by High sensitivity method [facility] Urine blood test [facility] Urine culture [facility] Urine dipstick for glucose [facility] Urine dipstick for leukocyte esterase [facility] Urine dipstick for nitrite [facility] Urine dipstick for protein [facility] Urine examination [facility] Urine microscopy: epithelial cells [facility] Urine Microscopy: wh ite cells [facility] Urobilinogen [Presen ce] in Urine [facility] US Carotid arteries [facility] US Heart limited [facility] Immun[facility] Immunization Date Immunization Notes Care Provider Karla garcia 04-25-2023 tetanus toxoid, redu jesse diphtheria toxoid, and acellular pertussis vaccine, adsorbed Dr. Xiang Rogres Work Phone: [facility] 12-23-2016 influenza, injectabl e, quadrivalent, contains preservative Gab Culver APRN.CNP Work Phone: [facility] 12-23-2016 influenza virus vacc ine, unspecified formulation Ct (I-Stat) Work Phone: [facility] 10-09-2015 pneumococcal polysaccharide vaccine, 23 valent Gab Culver APRN.CNP Work Phone: [facility] Work Phone: 06-11-2014 tetanus toxoid, redu jesse diphtheria toxoid, and acellular pertussis vaccine, adsorbed Dr. Xiang Rogers Work Phone: [facility] Payers Date Payer Category Payer Self-pay [id number] 2023 Unknown [id number] 2023 Unknown NEVILLE LOZADA HI X [id number] 2023-Present [phone] [address] [address] [place] [address] O [id number]. [id number] 2023 Unknown [id number] 2020 Medicaid [employer] [id number] 2020-Present [phone] [address] [place] [address] Medicaid [id number]. [id number] 2020 Medicaid [id number] [id number]. [id number] 2020 Unknown [id number] 2014 Unknown [facility] [id number] Unknown [id number] Unknown [id number] 2.16.840.1.774708.3.579.2.462 Unknown [id number] 2.16.840.1.498858.3.579.2.462 Unknown [id number] 2.16.840.1.883469.3.579.2.462 Unknown [id number] 2.16.840.1.900243.3.579.2.462 Unknown [id number] 2.16.840.1.518703.3.579.2.462 Unknown [id number] 2.16.840.1.184140.3.579.2.462 Unknown [id number] 2.16.840.1.128076.3.579.2.462 Unknown [id number] 2.16.840.1.482012.3.579.2.462 Unknown [id number] 2.16840.1.316798.3.579.2.462 Unknown [id number] 2.16840.1.919873.3.579.2.462 Unknown [id number] 2.16840.1.743647.3.579.2.462 Unknown [id number] 2.16840.1.954636.3.579.2.462 Unknown [id number] 2.16840.1.044249.3.579.2.462 Unknown [id number] 2.16.840.1.463126.3.579.2.462 Unknown [id number] 2.16840.1.666511.3.579.2.462 Unknown [id number] 2.16840.1.254481.3.579.2.462 Unknown [id number] 2.16.840.1.794162.3.579.2.462 Unknown [id number] 2.16.840.1.075678.3.579.2.462 Unknown [id number] 2.16.840.1.953435.3.579.2.462 Unknown [id number] 2.16840.1.446147.3.579.2.462 Unknown [id number] 2.16.840.1.108946.3.579.2.462 Unknown [id number] 2.16.840.1.075239.3.579.2.462 Unknown [id number] 2.16.840.1.539673.3.579.2.462 Unknown [id number] 2.16.840.1.692890.3.579.2.462 Unknown [id number] 2.16.840.1.862853.3.579.2.462 Unknown [id number] 2.16.840.1.429613.3.579.2.462 Unknown [id number] 2.16.840.1.260595.3.579.2.462 Unknown [id number] 2.16.840.1.187871.3.579.2.462 Unknown [id number] 2.16840.1.673724.3.579.2.462 Unknown [id number] 2.16840.1.470902.3.579.2.462 Unknown [id number] 2.16.840.1.278845.3.579.2.462 Unknown [id number] 2.16840.1.708591.3.579.2.462 Unknown [id number] 2.16840.1.387204.3.579.2.462 Unknown [id number] 2.16.840.1.252867.3.579.2.462 Unknown [id number] 2.16.840.1.602706.3.579.2.462 Unknown [id number] 2.16.840.1.325746.3.579.2.462 Unknown [id number] 2.16.840.1.878498.3.579.2.462 Unknown [id number] 2.16.840.1.361285.3.579.2.462 Unknown [id number] 2.16.840.1.267679.3.579.2.462 Unknown [id number] 2.16.840.1.828039.3.579.2.462 Unknown [id number] 2.16.840.1.490092.3.579.2.462 Unknown [id number] 2.16.840.1.465554.3.579.2.462 Unknown [id number] 2.16.840.1.764811.3.579.2.462 Unknown [id number] 2.16.840.1.380500.3.579.2.462 Unknown [id number] 2.16.840.1.853968.3.579.2.462 Unknown [id number] 2.16.840.1.595786.3.579.2.462 Unknown [id number] 2.16.840.1.148078.3.579.2.462 Unknown [id number] 2.16.840.1.390355.3.579.2.462 Unknown [id number] 2.16840.1.453409.3.579.2.462 Unknown [id number] 2.16.840.1.219421.3.579.2.462 Unknown [id number] 2.16.840.1.895707.3.579.2.462 Unknown [id number] 2.16.840.1.751980.3.579.2.462 Unknown [id number] 2.16.840.1.879871.3.579.2.462 Unknown [id number] 2.16.840.1.951612.3.579.2.462 Unknown [id number] 2.16.840.1.395484.3.579.2.462 Unknown [id number] 2.16.840.1.255619.3.579.2.462 Unknown [id number] 2.16.840.1.029857.3.579.2.462 Unknown [id number] 2.16.840.1.087968.3.579.2.462 Unknown [id number] 2.16.840.1.586193.3.579.2.462 Unknown [id number] 2.16.840.1.618659.3.579.2.462 Unknown [id number] 2.16.840.1.061248.3.579.2.462 Unknown [id number] 2.16.840.1.614095.3.579.2.462 Unknown [id number] 2.16.840.1.375715.3.579.2.462 Unknown [id number] 2.16.840.1.885305.3.579.2.462 Unknown [id number] 2.16.840.1.931582.3.579.2.462 Unknown [id number] 2.16.840.1.969278.3.579.2.462 Unknown [id number] 2.16.840.1.272208.3.579.2.462 Unknown [id number] 2.16.840.1.394517.3.579.2.462 Unknown [id number] 2.16.840.1.114204.3.579.2.462 Unknown [id number] 2.16.840.1.328748.3.579.2.462 Unknown [id number] 2.16.840.1.513584.3.579.2.462 Unknown [id number] 2.16.840.1.694279.3.579.2.462 Unknown [id number] 2.16.840.1.050840.3.579.2.462 Unknown [id number] 2.16.840.1.478133.3.579.2.462 Unknown [id number] 2.16.840.1.356372.3.579.2.462 Unknown [id number] 2.16.840.1.371208.3.579.2.462 Unknown [id number] 2.16.840.1.642659.3.579.2.462 Unknown [id number] 2.16.840.1.908692.3.579.2.462 Unknown [id number] 2.16.840.1.695809.3.579.2.462 Unknown [id number] 2.16.840.1.785974.3.579.2.462 Unknown [id number] 2.16.840.1.758688.3.579.2.462 Unknown [id number] 2.16.840.1.420407.3.579.2.462 Unknown [id number] 2.16.840.1.356667.3.579.2.462 Unknown [id number] 2.16.840.1.924812.3.579.2.462 Unknown [id number] 2.16.840.1.017080.3.579.2.462 Unknown [id number] 2.16.840.1.829966.3.579.2.462 Unknown [id number] 2.16.840.1.442413.3.579.2.462 Social History Date Type Detail Facility Start: 01-06-2022 End: 12-31-2023 Tobacco smoking status NHIS Smokes tobacco daily [facility] Work Phone: History of tobacco use [facility] Start: 07-18-2021 End: 12-31-2023 Alcohol intake Current non-drinker of alcohol (finding) [facility] Start: 1960 Sex Assigned At Not on file [facility] Start: 07-08-2021 End: 02-04-2022 Exposure to SARS-CoV-2 (event) Not sure [facility] Start: 07-18-2021 End: 06-02-2023 Tobacco smoking status AZIS Unknown if ever smoked [facility] Start: 04-12-2019 None [facility] Start: 04-12-2019 Spouse/ Signif icant Other [facility] Start: 08-11-2020 Cigarettes [facility] Start: 1960 Sex Assigned At Male [facility] Start: 01-06-2022 End: 05-02-2022 Cigarettes smoked current (pack per day) - Reported 2 [facility] Start: 01-06-2022 End: 12-31-2023 Tobacco use and exposure Smokeless tobacco non-user [facility] Start: 01-06-2022 Tobacco Comment started at age 14 [facility] Start: 01-28-2022 End: 05-02-2022 Tobacco use panel [facility] National Score (1-10 0), lower number is lower risk Not on file [facility] Start: 06-17-2024 End: 10-21-2024 Tobacco smoking status NHIS Current Heavy tobacco smoker [facility] Start: 06-23-2024 Sex Male (finding) [facility] Start: 10-23-2024 End: 11-22-2024 Tobacco smoking status NHIS Current Light tobacco smoker [facility] Medical Equipment Procedure Code Equipment Code Equipment Origin al Text Equipment Identifier Dates [id number], [id number], [id number] Start: 01-21-2016 Comment on above: Test blood [...] 04-02-2021 Lancets [facility] Start: 04-02-2021 Pen Needle, Diabetic (1st Tier Unifine Pentips Plus) 31 gauge x 3/16 needle Start: 04-02-2021 Pen Needle, Diabetic (Comfort Ez Pen Upton) 31 gauge x 5/16 needle Start: 10-28-2023 Blood Sugar Diagnostic (Freestyle Test) strip Start: 06-10-2019 End: 04-02-2021 Lancets (Freesty le [facility]) [facility] Start: 06-10-2019 End: 04-02-2021 Pen Needle, Diabetic (1st Tier Unifine Pentips Plus) 31 gauge x 3/16 needle Start: 06-01-2019 End: 08-06-2020 Pen Needle, Diabetic (1st Tier Unifine Pentips Plus) 31 gauge x 3/16 needle Start: 08-06-2020 End: 04-02-2021 Goals Date Patient Goal Desired Activity /State Functional Status Date Assessment Result Facility 11-13-2024 Functional status Ambulates [facility] Work Phone: 11-11-2024 Functional status Well [facility] Work Phone: 09-21-2024 Functional status Ambulates;Up a d andree;Bathroom Privilege [facility] Work Phone: 09-19-2024 Functional status None [facility] Work Phone: 06-20-2024 Functional status Chair [facility] Work Phone: 04-19-2022 Functional status Ambulates;Up ad andree [facility] Work Phone: Mental Status Date Assessment Result Facility 11-13-2024 Cognitive function Voice/Name [facility] Work Phone: 10-26-2024 Cognitive function Awake;Alert;A ppropriate;Follow s Commands [facility] Work Phone: 10-19-2024 Cognitive function Voice/Name [facility] Work Phone: 09-21-2024 Cognitive function Voice/Name [facility] Work Phone: 09-18-2024 Cognitive function Voice/Name [facility] Work Phone: 07-29-2024 Cognitive function Voice/Name [facility] Work Phone: 06-20-2024 Cognitive function Voice/Name [facility] Work Phone: 04-19-2022 Cognitive function Voice/Name [facility] Work Phone: 04-18-2022 Cognitive function Voice/Name [facility] Work Phone: 07-18-2021 Cognitive function Level Of Cons ciousness Awake;Alert;Appropriate [facility] Work Phone: Clinical Notes 06-11-2018 to 12-19-2024 Note Date & Type Note Facility 12-19-2024 Note [facility] 12-08-2024 Note [facility] 12-05-2024 Note [facility] 11-22-2024 Radiology Diagnos tic study note [facility] 11-22-2024 Radiology Diagnos tic study note [facility] 11-13-2024 Hospital Discharg e instructions Additional Instructions Date of Discharge: 11/13/24 [facility] Work Phone: 11-13-2024 Note [facility] 11-13-2024 Progress note Note Date/Time November 13, 2024 8:52am [facility] Medical Records Department [address] [place] [address] Progress Note - Hospitalist 11/13/24 0829 MR#: [id number] Acct: [id number] Name: JAYLEN MEJIA . Rep #[id number] : 1960 64 From: Steve Fields MD PCP: Dr. Xiang Rogers, DO Status:AD M IN Location: [place] [address] Reason for Visit Chief Complaint: Dyspnea, orthopnea, increased weight gain, increased distal edema. Subjective Subjective Patient has experienced on 8 kg weight loss from diuresis since admission. Currently remains on oxygen supplementation 2 L flow per minute. Objective Data Objective Data Vital Signs: Vital Signs Temp Pulse Resp BP Pulse Ox O2 Del Method O2 Flow Rate 98 F 89 18 95/60 94 Nasal Cannula 2 11/13/24 03:16 11/13/24 07:15 11/13/24 07:15 11/13/24 03:16 11/13/24 07:15 11/13/24 08:10 11/13/24 08:10 Oxygen Flow Rate (L/min) 2 Oxygen Delivery Method Nasal Cannula Weight: 89.6 kg Body Mass Index (BMI) 27.6 Intake & Output: Intake and Output for Last 24 Hours 11/11/24 11/12/24 11/13/24 23:59 23:59 23:59 Intake Total 1720 / 1720 1500 / 1500 Output Total 3475 / 3475 2350 / 2350 Balance -1755 / -1755 -850 / -850 Lab / Micro Data 11/13/24 05:13 11/13/24 05:13 Labs: Laboratory Results - last 24 hr 11/12/24 11:24: POC Glucose 154 H 11/12/24 16:20: POC Glucose 201 H 11/12/24 21:51: POC Glucose 253 H 11/13/24 05:13: WBC 7.4, RBC 4.27 L, Hgb 12.9 L, Hct 39.8 L, MCV 93.2, MCH 30.2,MCHC 32.4, RDW Std Deviation 47.8 H, RDW Coeff of Maycol 14.1, Plt Count 321, MPV 9.2, Immature Gran % (Auto) 0.400, Neut % (Auto) 67.3, Lymph % (Auto) 20.0, [place]% (Auto) 8.9, Eos % (Auto) 3.1, Baso % (Auto) 0.3, Absolute Neuts (auto) 5.0, Absolute Lymphs (auto) 1.48, Nucleated RBC % 0, Sodium 137, Potassium 3.8, Chloride 100, Carbon Dioxide 26.1, Anion Gap 11, BUN 22 H, Creatinine 0.98, Estim Creat Clear Calc 89.59, Est GFR (MDRD) Non-Af 86, BUN/Creatinine Ratio 22.2 H, Glucose 98, Calcium 8.8 11/13/24 06:36: POC Glucose 88 Micro: Microbiology 11/10/24 16:55 Mucosa - Nose SARS-CoV-2, Influenza & RSV (PCR) - Final Physical Exam Narrative GENERAL: cooperative HEENT: Atraumatic; normocephalic EYES; Anicteric, Normal Conjunctiva NECK; supple, normal thyroid, RESPIRATORY: Diminished to auscultation CARDIOVASCULAR: Regular S1 S2, GI: soft, normoactive bowel sounds, : No Renal angle tenderness; EXTREMITIES: felipe edema, no clubbing, MUSCULOSKELETAL: no muscle wasting NEURO: Awake; no lateralizing signs. SKIN: Bilateral lower extremity stasis dermatitis PSYCH; Flat affect Assessment & Plan Assessment/Plan (1) Acute HFrEF (heart failure with reduced ejection fraction): PLAN: Plan Patient is a 64-year-old gentleman who presented with a week history of progressive shortness of breath with bilateral lower extremity edema 1. Acute on chronic congestive heart failure with reduced ejection fraction ? Echo from 09/18/2024 demonstrated LVEF of 35% with akinetic apex and severely hypokinetic mid anterior region. Patient presented with exertional dyspnea bilateral lower extremity edema and was found to have elevated proBNP and assessment of acute decompensated CHF made. Patient admitted to monitored bed continue strict input and output, daily weight, low-sodium diet, fluid restriction as well as diuretic therapy with furosemide ? 11/12/2024; consult was placed to cardiology patient was seen by Dr. Trevino recommended addition of Entresto Farxiga and Aldactone ? 11/13/2024 patient has experienced on 8 kg weight loss from diuresis since admission. Currently remains on oxygen supplementation 2 L flow per minute. Plan is for patient to be assessed for home oxygen prior to making decision regarding addition 2. Coronary artery disease ? With previous CABG patient is on guideline directed medical therapy except forstatin due to intolerance 3. COPD ? Aerosol treatments as needed 4. Peripheral arterial disease with known history of carotid artery stenosis ? Status post CEA 5. Diabetes mellitus type II -patient's oral hypoglycemics held. Placed on long acting insulin, Accu-Cheks a.c. and at bedtime and covered with sliding scale insulin. Patient glucose control not optimal adjusted long-acting insulin dose 6. GERD ? On PPI 7. Hypertension ? Blood pressure controlled, home medications continued with dose adjustment as needed 8. Dyslipidemia ? Patient apparently has intolerance to statin therapy currently on Repatha discontinued 9. Tobacco dependence ? Counseled on cessation, offered nicotine patch for tobacco cravings 10. History of previous CVA ? With residual mild facial droop. Patient is on dual antiplatelet therapy did continue 11. DVT prophylaxis ? Subcu Lovenox Charges/Coding Visit Charges Inpatient E&M: 64585 Subs Hosp L2 11/13/2452 <Electronically signed by Steve Fields MD> Cosigner Signature (if applicable): CC: ~ Signed [facility] Work Phone: [phone]) 247-543508-09-2025 Progress note Author Steve Bishopemily [facility] Note Date/Time November 12, 2024 10: 19am [facility] Medical Records Department [address] [place] [address] Progress Note - Hospitalist 11/12/2418 MR#: [id number] Acct: [id number] Name: JAYLEN MEJIA Sr. Rep #:[id number] : 1960 64 From: Steve Fields MD PCP: Dr. Xiang Rogers, DO Status:AD M IN Location: [place] [id number] Reason for Visit Chief Complaint: Dyspnea, orthopnea, increased weight gain, increased distal edema. Subjective Subjective Patient seen continues to diurese well Objective Data Objective Data Vital Signs: Vital Signs Temp Pulse Resp BP Pulse Ox O2 Del Method O2 Flow Rate 97 F L 85 18 113/59 L 93 Nasal Cannula 2 11/12/24 03:45 11/12/24 07:11 11/12/24 07:11 11/12/24 03:45 11/12/24 07:11 11/12/24 07:11 11/12/24 07:11 Oxygen Flow Rate (L/min) 2 Oxygen Delivery Method Nasal Cannula Weight: 95 kg Body Mass Index (BMI) 29.2 Intake & Output: Intake and Output for Last 24 Hours 11/10/24 11/11/24 11/12/24 23:59 23:59 23:59 Intake Total 1720 / 1720 360 / 360 Output Total 3475 / 3475 700 / 700 Balance -1755 / -1755 -340 / -340 Lab / Micro Data 11/12/24 05:40 11/12/24 05:40 Labs: Laboratory Results - last 24 hr 11/11/24 05:34: TSH 0.807 11/11/24 11:51: POC Glucose 164 H 11/11/24 13:47: POC Glucose 221 H 11/11/24 14:46: POC Glucose 242 H 11/11/24 16:38: POC Glucose 186 H 11/11/24 21:44: POC Glucose 218 H 11/12/24 05:40: WBC 6.3, RBC 4.46 L, Hgb 13.3, Hct 41.4, MCV 92.8, MCH 29.8, MCHC 32.1, RDW Std Deviation 47.9 H, RDW Coeff of Maycol 14.3, Plt Count 317, MPV 9.3, Immature Gran % (Auto) 0.300, Neut % (Auto) 60.3, Lymph % (Auto) 25.4, [place]% (Auto) 9.9, Eos % (Auto) 3.6, Baso % (Auto) 0.5, Absolute Neuts (auto) 3.8, Absolute Lymphs (auto) 1.61, Nucleated RBC % 0, Sodium 137, Potassium 4.2, Chloride 99, Carbon Dioxide 26.9, Anion Gap 10, BUN 24 H, Creatinine 1.16, EstimCreat Clear Calc 75.69, Est GFR (MDRD) Non-Af 70, BUN/Creatinine Ratio 21.0 H, Glucose 143 H, Calcium 9.2, Phosphorus 3.2, Magnesium 2.2 11/12/24 06:28: POC Glucose 132 H Micro: Microbiology 11/10/24 16:55 Mucosa - Nose SARS-CoV-2, Influenza & RSV (PCR) - Final Physical Exam Narrative GENERAL: cooperative HEENT: Atraumatic; normocephalic EYES; Anicteric, Normal Conjunctiva NECK; supple, normal thyroid, RESPIRATORY: Diminished to auscultation CARDIOVASCULAR: Regular S1 S2, GI: soft, normoactive bowel sounds, : No Renal angle tenderness; EXTREMITIES: felipe edema, no clubbing, MUSCULOSKELETAL: no muscle wasting NEURO: Awake; no lateralizing signs. SKIN: Bilateral lower extremity stasis dermatitis PSYCH; Flat affect Assessment & Plan Assessment/Plan (1) Acute HFrEF (heart failure with reduced ejection fraction): PLAN: Plan Patient is a 64-year-old gentleman who presented with a week history of progressive shortness of breath with bilateral lower extremity edema 1. Acute on chronic congestive heart failure with reduced ejection fraction ? Echo from 09/18/2024 demonstrated LVEF of 35% with akinetic apex and severely hypokinetic mid anterior region. Patient presented with exertional dyspnea bilateral lower extremity edema and was found to have elevated proBNP and assessment of acute decompensated CHF made. Patient admitted to monitored bed continue strict input and output, daily weight, low-sodium diet, fluid restriction as well as diuretic therapy with furosemide ? 11/12/2024; consult was placed to cardiology patient was seen by Dr. Trevino recommended addition of Entresto Farxiga and Aldactone 2. Coronary artery disease ? With previous CABG patient is on guideline directed medical therapy except forstatin due to intolerance 3. COPD ? Aerosol treatments as needed 4. Peripheral arterial disease with known history of carotid artery stenosis ? Status post CEA 5. Diabetes mellitus type II -patient's oral hypoglycemics held. Placed on long acting insulin, Accu-Cheks a.c. and at bedtime and covered with sliding scale insulin. Patient glucose control not optimal adjusted long-acting insulin dose 6. GERD ? On PPI 7. Hypertension ? Blood pressure controlled, home medications continued with dose adjustment as needed 8. Dyslipidemia ? Patient apparently has intolerance to statin therapy currently on Repatha discontinued 9. Tobacco dependence ? Counseled on cessation, offered nicotine patch for tobacco cravings 10. History of previous CVA ? With residual mild facial droop. Patient is on dual antiplatelet therapy did continue 11. DVT prophylaxis ? Subcu Lovenox Time spent in the patient's overall evaluation,decision-making process, review of diagnostic data, adjustment of management, discussion with other providers, nursing nursing and ancillary staff involved in patient's care documentation, 40 Minutes Charges/Coding Visit Charges Inpatient E&M: 52042 Subs Hosp L2 11/12/24 1019 <Electronically signed by Steve Fields MD> Cosigner Signature (if applicable): CC: ~ Signed [facility] Work Phone: [phone] Consult note Author Buck Trevino [facility] Note Date/Time November 11, 2024 6:[address] [facility] Medical Records Department [address] [place] [address] Consultation - Cardiology 11/11/24 1821 MR#: [id number] Acct: [id number] Name: JAYLEN MEJIA Sr. Rep #:[id number] : 1960 64 From: Buck Trevino MD PCP: Dr. Xiang Rogers, DO Status:AD M IN Location: [place] [address]- Assessment & Plan Assessment/Plan (1) H/O coronary artery bypass surgery: (2) Essential (primary) hypertension: (3) Hyperlipidemia: QUALIFIERS: Hyperlipidemia type: mixed hyperlipidemia Qualified Code(s): E78.2 - Mixed hyperlipidemia (4) Stenosis of right carotid artery: (5) Nicotine dependence: QUALIFIERS: Nicotine product type: cigarettes Substance use status: uncomplicated Qualified Code(s): F17.210 - Nicotine dependence, cigarettes, uncomplicated (6) Acute on chronic HFrEF (heart failure with reduced ejection fraction): PLAN: Cardiac care plan recommendations; 64-year-old patient with extensive cardiac history had a history of CAD with CABG in 2006 Cardiac catheterization in 2022 revealed patent ALMANZAR to LAD, patent LOGAN to RCA Occluded sequential graft of SVG to OM1 and diagonal. Has multiple other medical comorbidities with history of previous stroke historyof peripheral vascular disease with right carotid endarterectomy. Recently noted worsening of his LV function with ejection fraction now around 35%. Symptoms of shortness of breath improving on the current treatment with the IV diuretic with Lasix. I reviewed all his current evaluation including his current medication. The EKG and the cleaning supervisor showed normal sinus rhythm. proBNP level was significantly elevated on this admission. Responding well to the current diuretic and diuresis as well. Cardiac plan and recommendations; Will adjust the current medication to guideline directed medical therapy in the form of Entresto, Farxiga, Aldactone his renal function is within normal. On Lasix as needed. Also patient will require administrator social welfare as he has been at home and has some difficulty with his medication as per his last visit on the cardiology office. Once stable to follow-up with his primary wool grader for continuation of cardiac care to discuss long-term plan possible ICD/BiV pacer. Buck Trevino MD,[facility] retail interior designer HPI Consult Data Date of Consult: 11/11/24 HPI Narrative Reason for Consultation: Acute on chronic systolic heart failure/HFrEF HPI Narrative: AJYLEN MEJIA, is a 64 M who presents [facility] Medical History (Updated 11/10/24 @ 19:51 by [...] Nicotine dependence Atherosclerosis of coronary artery of [place] heart without angina pectoris Hyperlipidemia Essential (primary) [...] Rx 3 (1st Tier Unifine Pentips Plus) Handicap placard #1 ea 07/22/23 Unknown Rx pen needle, diabetic 31 gauge x #100 ea 10/28/23 Unkno wn Rx 08/19 (Comfort EZ Pen Upton) evolocumab 140 mg/mL subcutaneous 140 mg subcut Q2W ch olesterol #6 mL 05/09/24 09/12/24 Rx pen injector (Wolf Bernal) insulin glargine 100 unit/mL (3 20 unit [...] Unknown Rx tablet Cardiac/Chest Pain #25 tabs aspirin 81 mg chewable tablet 81 mg PO BREAKFAST preve ntative 11/03/24 Unknown Rx #90 tabs clopidogrel 75 mg tablet 75 mg PO DAILY antiplatelet #90 11/03/24 Unknown Rx tabs dapagliflozin propanediol 10 mg 10 mg PO DAILY diabete s #90 TABLETS 11/03/24 Unknown Rx tablet (Farxiga) ezetimibe 10 mg tablet 10 mg PO DAILY cholesterol # 90 tabs 11/03/24 Unknown Rx furosemide 40 mg tablet 40 mg PO DAILY diuretic #90 tabs 11/03/24 Unknown Rx albuterol sulfate 90 mcg/actuation 2 [...] vascular accident) Lung cancer Grandfather Myocardial infarction Family History other Surgical History S/P CABG x 4 History [...] physical activity do you participate in: none Physical Exam Cardio Cardio Narrative: I saw this patient at bedside Sitting out in the chair. Shortness of breath improving. Cardiac rhythm sinus rhythm Cardiac exam S1-S2 regular Chest exam diminished air entry bilateral Examination lower extremity +3 lower extremity edema. Risk Stratification Risk Stratification Applicable: No Objective Data Vital Signs: Vital Signs Temp Pulse Resp BP Pulse Ox O2 Del Method O2 Flow Rate 97.1 F L 92 18 106/77 98 Nasal Cannula 2 11/11/24 17:41 11/11/24 17:41 11/11/24 17:41 11/11/24 17:41 11/11/24 17:41 11/11/24 17:41 11/11/24 17:41 Oxygen Flow Rate (L/min) 2 Oxygen Delivery Method Nasal Cannula Weight: 209 lb 7.026 oz Body Mass Index (BMI) 29.2 Intake & Output: Intake and Output for Last 24 Hours 11/09/24 11/10/24 11/11/24 23:59 23:59 23:59 Intake Total 1000 / 1000 Output Total 1825 / 1825 Balance -825 / -825 Lab / Micro Data 11/11/24 05:34 11/11/24 05:34 Labs: Laboratory Results - last 24 hr 11/10/24 16:15: Magnesium 2.0 11/10/24 17:53: Troponin T Hi Sens 2 Hr 37 H 11/10/24 21:22: POC Glucose 123 H 11/10/24 21:35: Troponin T Hi Sens 4Hr 36 H 11/11/24 05:34: WBC 8.0, RBC 4.42 L, Hgb 13.3, Hct 40.7, MCV 92.1, MCH 30.1, MCHC 32.7, RDW Std Deviation 47.8 H, RDW Coeff of Maycol 14.3, Plt Count 332, MPV 9.4, Immature Gran % (Auto) 0.300, Neut % (Auto) 70.7 H, Lymph % (Auto) 19.7, [place] % (Auto) 7.6, Eos % (Auto) 1.3, Baso % (Auto) 0.4, Absolute Neuts (auto) 5.7, Absolute Lymphs (auto) 1.57, Nucleated RBC % 0, Sodium 136, Potassium 3.9, Chloride 101, Carbon Dioxide 20.4 L, Anion Gap 14, BUN 22 H, Creatinine 1.16, Estim Creat Clear Calc 75.69, Est GFR (MDRD) Non-Af 70, BUN/Creatinine Ratio 19.0, Glucose 159 H, Calcium 9.0, Total Bilirubin 0.71, AST 29, ALT 18, AlkalinePhosphatase 124, Total Protein 6.7, Albumin 3.6, Globulin 3.1, Albumin/Globulin Ratio 1.2, Triglycerides 84, Cholesterol 64, LDL Cholesterol, Calc 3, VLDL Cholesterol 17, HDL Cholesterol 44, Cholesterol/HDL Ratio 1.45 11/11/24 06:31: POC Glucose 223 H 11/11/24 11:51: POC Glucose 164 H 11/11/24 13:47: POC Glucose 221 H 11/11/24 14:46: POC Glucose 242 H 11/11/24 16:38: POC Glucose 186 H Micro: Microbiology 11/10/24 16:55 Mucosa - Nose SARS-CoV-2, Influenza & RSV (PCR) - Final ABG Data ABG results: ABG 11/10/24 21:05 Specimen Type ART Sample Site L Radial pH 7.48 H Bicarbonate Actual 23.5 Total CO2 25 Base Excess 0 O2 Saturation 97 O2 % 2.0 ABG pCO2 31.3 L ABG pO2 85 Moy Test Positive O2 Delivery Device Cannula Vent Mode Not entered Cardiology Labs/Tests 11/10/24 16:15: Magnesium 2.0 11/10/24 21:05: pH 7.48 H, Bicarbonate Actual 23.5, Base Excess 0, O2 [id number], ABG pCO2 31.3 L, ABG pO2 85, Moy Test Positive 11/11/24 05:34: WBC 8.0, RBC 4.42 L, Hgb 13.3, Hct 40.7, MCV 92.1, MCH 30.1, MCHC 32.7, Plt Count 332, MPV 9.4, Immature Gran % (Auto) 0.300, Neut % (Auto) 70.7 H, Lymph % (Auto) 19.7, [place] % (Auto) 7.6, Eos % (Auto) 1.3, Baso % (Auto) 0.4, Absolute Neuts (auto) 5.7, Nucleated RBC % 0, Sodium 136, Potassium 3.9, Chloride 101, Carbon Dioxide 20.4 L, Anion Gap 14, BUN 22 H, Creatinine 1.16, Est GFR (MDRD) Non-Af 70, BUN/Creatinine Ratio 19.0, Glucose 159 H, Calcium 9.0,Total Bilirubin 0.71, Triglycerides 84, Cholesterol 64, VLDL Cholesterol 17, HDLCholesterol 44, Cholesterol/HDL Ratio 1.45 Rhythm: EKG: ECHO: Stress Test: Cardiac Cath: PCI: CT Surgery: Holter monitor: EPS: PPM: CXR: Chest CT Scan: Radiography Diagnostic Testing: Radiology Impression Chest X-Ray 11/10/24 17:00 IMPRESSION: Cardiomegaly with vascular congestion, interstitial edema, and small bibasilar pleural effusions/atelectasis, greater on the right. Increased from prior exam. Reading Location: [facility] 11/11/24 3342 <Electronically signed by Buck Trevino MD> Cosigner Signature (if applicable): CC: Dr. Xiang Rogers, DO~ Signed [facility] Work Phone: [phone] Progress note Author Steve Fields [facility] Note Date/Time November 11, 2024 9:1 6am [facility] Medical Records Department [address] [place] [address] Progress Note - Hospitalist 11/11/24 0741 MR#: [id number] Acct: [id number] Name: JAYLEN MEJIA Sr. Rep #:[id number] : 1960 64 From: Steve Fields MD PCP: Dr. Xiang Rogers, DO Status:AD M IN Location: [address] 1 Reason for Visit Chief Complaint: Dyspnea, orthopnea, increased weight gain, increased distal edema. Subjective Subjective Patient is a 64-year-old gentleman who presented with a week history of progressive shortness of breath with bilateral lower extremity edema Objective Data Objective Data Vital Signs: Vital Signs Temp Pulse Resp BP Pulse Ox O2 Del Method O2 Flow Rate 97.6 F L 103 H 19 H 115/78 97 Nasal Cannula 2.5 11/11/24 02:44 11/11/24 02:44 11/11/24 02:44 11/11/24 02:44 11/11/24 02:44 11/11/24 02:44 11/11/24 02:44 Oxygen Flow Rate (L/min) 2.5 Oxygen Delivery Method Nasal Cannula Weight: 95 kg Body Mass Index (BMI) 29.2 Intake & Output: Intake and Output for Last 24 Hours 11/09/24 11/10/24 11/11/24 23:59 23:59 23:59 Output Total 300 / 300 Balance -300 / -300 Lab / Micro Data 11/11/24 05:34 11/11/24 05:34 Labs: Laboratory Results - last 24 hr 11/10/24 16:15: WBC 8.6, RBC 4.43 L, Hgb 13.3, Hct 41.6, MCV 93.9, MCH 30.0, MCHC 32.0, RDW Std Deviation 48.4 H, RDW Coeff of Maycol 14.2, Plt Count 336, MPV 9.3, Immature Gran % (Auto) 0.300, Neut % (Auto) 69.7, Lymph % (Auto) 20.2, [place]% (Auto) 8.0, Eos % (Auto) 1.5, Baso % (Auto) 0.3, Absolute Neuts (auto) 6.0, Absolute Lymphs (auto) 1.74, Nucleated RBC % 0, Sodium 136, Potassium 3.7, Chloride 101, Carbon Dioxide 23.1, Anion Gap 12, BUN 24 H, Creatinine 1.19, Est GFR (MDRD) Non-Af 68, BUN/Creatinine Ratio 20.3 H, Glucose 174 H, Calcium 8.8, Magnesium 2.0, Troponin T High Sens 42 H D, NT pro BNP II 9141 H 11/10/24 17:53: Troponin T Hi Sens 2 Hr 37 H 11/10/24 21:22: POC Glucose 123 H 11/10/24 21:35: Troponin T Hi Sens 4Hr 36 H 11/11/24 05:34: WBC 8.0, RBC 4.42 L, Hgb 13.3, Hct 40.7, MCV 92.1, MCH 30.1, MCHC 32.7, RDW Std Deviation 47.8 H, RDW Coeff of Maycol 14.3, Plt Count 332, MPV 9.4, Immature Gran % (Auto) 0.300, Neut % (Auto) 70.7 H, Lymph % (Auto) 19.7, [place] % (Auto) 7.6, Eos % (Auto) 1.3, Baso % (Auto) 0.4, Absolute Neuts (auto) 5.7, Absolute Lymphs (auto) 1.57, Nucleated RBC % 0, Sodium 136, Potassium 3.9, Chloride 101, Carbon Dioxide 20.4 L, Anion Gap 14, BUN 22 H, Creatinine 1.16, Estim Creat Clear Calc 75.69, Est GFR (MDRD) Non-Af 70, BUN/Creatinine Ratio 19.0, Glucose 159 H, Calcium 9.0, Total Bilirubin 0.71, AST 29, ALT 18, AlkalinePhosphatase 124, Total Protein 6.7, Albumin 3.6, Globulin 3.1, Albumin/Globulin Ratio 1.2, Triglycerides 84, Cholesterol 64, LDL Cholesterol, Calc 3, VLDL Cholesterol 17, HDL Cholesterol 44, Cholesterol/HDL Ratio 1.45 11/11/24 06:31: POC Glucose 223 H Micro: Microbiology 11/10/24 16:55 Mucosa - Nose SARS-CoV-2, Influenza & RSV (PCR) - Final ABG Data ABG results: ABG 11/10/24 21:05 Specimen Type ART Sample Site L Radial pH 7.48 H Bicarbonate Actual 23.5 Total CO2 25 Base Excess 0 O2 Saturation 97 O2 % 2.0 ABG pCO2 31.3 L ABG pO2 85 Moy Test Positive O2 Delivery Device Cannula Vent Mode Not entered Radiography Diagnostic Testing: Radiology Impression Chest X-Ray 11/10/24 17:00 IMPRESSION: Cardiomegaly with vascular congestion, interstitial edema, and small bibasilar pleural effusions/atelectasis, greater on the right. Increased from prior exam. Reading Location: [facility] Physical Exam Narrative GENERAL: cooperative HEENT: Atraumatic; normocephalic EYES; Anicteric, Normal Conjunctiva NECK; supple, normal thyroid, RESPIRATORY: Diminished to auscultation CARDIOVASCULAR: Regular S1 S2, GI: soft, normoactive bowel sounds, : No Renal angle tenderness; EXTREMITIES: felipe edema, no clubbing, MUSCULOSKELETAL: no muscle wasting NEURO: Awake; no lateralizing signs. SKIN: Bilateral lower extremity stasis dermatitis PSYCH; Flat affect Assessment & Plan Assessment/Plan (1) Acute HFrEF (heart failure with reduced ejection fraction): PLAN: Plan Patient is a 64-year-old gentleman who presented with a week history of progressive shortness of breath with bilateral lower extremity edema 1. Acute on chronic congestive heart failure with reduced ejection fraction ? Echo from 09/18/2024 demonstrated LVEF of 35% with akinetic apex and severely hypokinetic mid anterior region. Patient presented with exertional dyspnea bilateral lower extremity edema and was found to have elevated proBNP and assessment of acute decompensated CHF made. Patient admitted to monitored bed continue strict input and output, daily weight, low-sodium diet, fluid restriction as well as diuretic therapy with furosemide 2. Coronary artery disease ? With previous CABG patient is on guideline directed medical therapy except forstatin due to intolerance 3. COPD ? Aerosol treatments as needed 4. Peripheral arterial disease with known history of carotid artery stenosis ? Status post CEA 5. Diabetes mellitus type II -patient's oral hypoglycemics held. Placed on long acting insulin, Accu-Cheks a.c. and at bedtime and covered with sliding scale insulin. Patient glucose control not optimal adjusted long-acting insulin dose 6. GERD ? On PPI 7. Hypertension ? Blood pressure controlled, home medications continued with dose adjustment as needed 8. Dyslipidemia ? Patient apparently has intolerance to statin therapy currently on Repatha discontinued 9. Tobacco dependence ? Counseled on cessation, offered nicotine patch for tobacco cravings 10. History of previous CVA ? With residual mild facial droop. Patient is on dual antiplatelet therapy did continue 11. DVT prophylaxis ? Subcu Lovenox Time spent in the patient's overall evaluation,decision-making process, review of diagnostic data, adjustment of management, discussion with other providers, nursing nursing and ancillary staff involved in patient's care documentation, 50Minutes Charges/Coding Visit Charges Inpatient E&M: 98504 Subs Hosp L3 11/11/24 0916 <Electronically signed by Steve Fields MD> Cosigner Signature (if applicable): CC: ~ Signed [facility] Work Phone: [phone]) [phone] History and physical note Author Corazon Diaz [facility] Note Date/Time November 10, 2024 7:5 6pm [facility] Medical Records Department [address] [place] [address] H&P Exam - Hospitalist 11/10/24 1930 MR#: [id number] Acct: [id number] Name: JAYLEN MEJIA Sr. Rep #:[id number] : 1960 64 From: Corazon Diaz MD PCP: Dr. Xiang Rogers, DO Status:RE [...] x 4, Tobacco use whopresents to the [facility] ED on 11/10/2024 with history of recently [...] Nicotine dependence Atherosclerosis of coronary artery of [place] heart without angina pectoris Hyperlipidemia Essential (primary) [...] Unkno wn Rx 5/16 (Comfort EZ Pen Upton) evolocumab 140 mg/mL subcutaneous 140 mg subcut Q2W ch olesterol #6 mL 05/09/24 09/12/24 Rx pen injector (Repatha SureClick) insulin glargine 100 unit/mL (3 20 unit subcut DAILY D iabetes 03/14/25 06/15/25 History mL) subcutaneous pen (Lantus Solostar U-100 [...] % (Auto) 69.7, Lymph % (Auto) 20.2, [place]% (Auto) 8.0, Eos % (Auto) 1.5, Baso [...] right. Increased from prior exam. Reading Location: [id number] Assessment & Plan Assessment/Plan (1) Acute HFrEF (heart failure with reduced ejection fraction): PLAN: Plan The patient is a 64 y/o M w/ PMHx: Hx CVA w/ mild facial droop, CKD stage II perGFR trending, HFrEF, GERD, Anxiety and Depression, HTN, HLD, Diabetes mellitus type II, COPD/Asthma, Carotid disease s/p CEA, CAD s/p CABG x 4, Tobacco use whopresents to the [facility] ED on 11/10/2024 with history of recently [...] 16 minutes. Charges/Coding Visit Charges Inpatient E&M: 28846 Init Hosp L3 Procedures Hospitalists Procedures: 88950 Advncd Care Plan 30 Min 11/10/241955 <Electronically signed by Corazon Diaz MD> Cosigner Signature (if applicable): CC: Dr. Corazon Diaz MD; Dr. Xiang Rogers, DO~ Signed [facility] Work Phone: 1(875) 389-744708-07-2025 Discharge summary Author Bishop Lashadarshan[facility] Note Date/Time November 10, 2024 7:[address] [facility] Medical Records Department [address] [place] [address] Emergency Department Summary 11/10/24 MR#: [id number] Acct: [id number] Name: JAYLEN MEJIA . Rep #:[id number] : 1960 64 [...] record. Patient was just recently admitted to [facility] for shortness of breath and CHF [...] intact Psych: Cooperative, appropriate mood and affect PFS PFS Medical History Cardiac LV ejection fraction 30-35% [...] Nicotine dependence Atherosclerosis of coronary artery of [place] heart without angina pectoris Hyperlipidemia Essential (primary) [...] Unkno wn Rx 5/16 (Comfort EZ Pen Upton) evolocumab 140 mg/mL subcutaneous 140 mg subcut Q2W ch olesterol #6 mL 05/09/24 09/12/24 Rx pen injector (Repatha SureClick) insulin glargine 100 unit/mL (3 20 [...] record. Patient was just recently admitted to [facility] for shortness of breath and CHF [...] % (Auto) 69.7 Lymph % (Auto) 20.2 [place] % (Auto) 8.0 Eos % (Auto) 1.5 [...] right. Increased from prior exam. Reading Location: [facility] Discharge Plan Triage Chief Complaint: Shortness of Breath ED Provider: Bishop Monique Dx/Rx/DC Orders Prescriptions: No Action (DME) Handicap placard See Rx Instructions .Route .MEDSUPPLY Qty: 1 0RF Rx Instructions: Due to COPD, unable to walk 50 yards without assistance, duration 5 years. (DME) pen needle, diabetic [Comfort EZ Pen Upton] 31 gauge x 5/16 needle See Rx [...] Rogers, [Primary Care Provider] - Print Language: Maldivian What to do if you have Problems For any increased pain, shortness of breath, bleeding, nausea or vomiting, chestpain, or any unexpected problems, contact your Primary Care Provider. Call [facility] ([phone]) or report to the closest Emergency Room. Call 911 if necessary. 11/10/241925 <Electronically signed by Bishop Monique DO> Cosigner Signature (if applicable): CC: Dr. Xiang Rogers DO ~ Signed [facility] Work Phone: 1(672) 274-396608-07-2025 Radiology Diagnostic study [facility]08-07-2025 Discharge summary Author [facility] Note Date/Time November 10, 2024 7:2 6pm [facility] Medical Records Department [address] [place] [address] Emergency Department Summary 11/10/24 MR#: [id number] Acct: [id number] Name: JAYLEN MEJIA . Rep #:[id number] : 1960 64 From: Bishop whalen DO PCP: Dr. Xiang Rogers DO Status:RE G [...] record. Patient was just recently admitted to [facility] for shortness of breath and CHF [...] intact Psych: Cooperative, appropriate mood and affect [facility] Medical History Cardiac LV ejection fraction 30-35% [...] Nicotine dependence Atherosclerosis of coronary artery of [place] heart without angina pectoris Hyperlipidemia Essential (primary) [...] x #100 ea 10/28/23 Unkno wn Rx 16 (Comfort EZ Pen Upton) evolocumab 140 mg/mL subcutaneous 140 mg subcut Q2W ch olesterol #6 mL 05/09/24 09/12/24 Rx pen injector (Repatha SureClick) insulin glargine 100 unit/mL (3 20 [...] record. Patient was just recently admitted to [facility] for shortness of breath and CHF [...] % (Auto) 69.7 Lymph % (Auto) 20.2 [place] % (Auto) 8.0 Eos % (Auto) 1.5 [...] right. Increased from prior exam. Reading Location: [id number] Discharge Plan Triage Chief Complaint: Shortness of Breath ED Provider: Bishop Monique Dx/Rx/DC Orders Prescriptions: No Action (DME) Handicap placard See Rx Instructions .Route .MEDSUPPLY Qty: 1 0RF Rx Instructions: Due to COPD, unable to walk 50 yards without assistance, duration 5 years. (DME) pen needle, diabetic [Comfort EZ Pen Upton] 31 gauge x 5/16 needle See Rx [...] DO [Primary Care Provider] - Print Language: Maldivian What to do if you have Problems For any increased pain, shortness of breath, bleeding, nausea or vomiting, chestpain, or any unexpected problems, contact your Primary Care Provider. Call [facility] ([phone]) or report to the closest Emergency Room. Call 911 if necessary. 11/10/241925 <Electronically signed by Bishop Monique DO> Cosigner Signature (if applicable): CC: Dr. Xiang Rogers DO ~ Signed [facility] Work Phone: 1(812) 745-163807-24-2025 Radiology Diagnostic study [facility]07-20-2025 Discharge summary Author Devin Curry [facility] Note Date/Time October 23, 2024 8:44 pm [facility] Medical Records Department [address] [place] [address] Emergency Department Summary 10/23/24 MR#: [id number] Acct: [id number] Name: JAYLEN MEJIA Sr. Rep #:[id number] : 1960 64 From: Devin Curry MD PCP: Dr. Xiang Rogers, DO Status:RE G ER Location: ED HPI History of Present Illness Chief Complaint: Cellulitis Informant: patient Onset/Context/Timing Onset: Days Context: Gradual Onset Timing: Continuous Current Severity: Mild Maximum Severity: Mild Narrative Narrative: 64-year-old male history of insulin-dependent diabetes, hypertension, VT, COPD, CHF. Recent admission last several weeks for CHF. States has had swelling in his lower extremities but now the red, warm and painful. He said he had breaking of pustules and pus on his legs. He denies any fever or chills. Denies any chest pain or shortness of breath. Prior similar symptoms: No Recent Illness/Hospitalization: [facility] Medical History GERD (gastroesophageal reflux disease) [...] Nicotine dependence Atherosclerosis of coronary artery of [place] heart without angina pectoris Hyperlipidemia Essential (primary) hypertension Home Medications ?Medication ?Instructions ?Recorded ?Last Taken ?Type blood sugar diagnostic (FreeStyle #50 ea 04/02/21 Unkn own Rx Test strips) blood-glucose meter (FreeStyle #1 ea 04/02/21 Unknown Rx System Kit) lancets 28 gauge (FreeStyle #50 ea 12/28/21 Unknown Rx Lancets) pen needle, diabetic 31 gauge x #100 ea 04/02/21 Unkno wn Rx 3/16 (1st Tier Unifine Pentips Plus) Handicap placard #1 ea 07/22/23 Unknown Rx pen needle, diabetic 31 gauge x #100 ea 10/28/23 Unkno wn Rx 5/16 (Comfort EZ Pen Upton) evolocumab 140 mg/mL subcutaneous 140 mg subcut [...] % (Auto) 68.5 Lymph % (Auto) 21.6 [place] % (Auto) 6.1 Eos % (Auto) 3.4 [...] (DME) pen needle, diabetic [Comfort EZ Pen Upton] 31 gauge x 5/16 needle See Rx [...] week. Return if feeling worse. Print Language: Maldivian Disposition Disposition: Home, Self Care What to do if you have Problems For any increased pain, shortness of breath, bleeding, nausea or vomiting, chestpain, or any unexpected problems, contact your Primary Care Provider. Call [facility] ([phone]) or report to the closest Emergency Room. Call 911 if necessary. 10/23/242043 <Electronically signed by Devin Curry MD> Cosigner Signature (if applicable): CC: Dr. Xiagn Rogers DO ~ Signed [facility] Work Phone: [phone]) 222-631507-20-2025 Hospital Discharge instructionsAdditional Instructions The antibiotic clindamycin [...] evaluation later this week. Return if feeling worse.[facility] Work Phone: 1([phone]) 274-969107-16-2025 Radiology Diagnostic study [facility]07-16-2025 Discharge summary Author Valentín Miller [facility] Note Date/Time October 19, [facility]24 [facility] [address] [place] [address] Emergency Department Summary 10/19/24 MR#: [id number] Acct: [id number] Name: JAYLEN MEJIA Sr. Rep #:[id number] : 1960 64 From: Valentín Saravia PCP: Dr. Xiang Rogers, DO Status:RE G ER Location: ED HPI History of Present Illness Chief Complaint: Chest Pain [facility] Medical History GERD (gastroesophageal reflux disease) [...] Nicotine dependence Atherosclerosis of coronary artery of [place] heart without angina pectoris Hyperlipidemia Essential (primary) [...] Unkno wn Rx 5/16 (Comfort EZ Pen Upton) evolocumab 140 mg/mL subcutaneous 140 mg subcut Q2W ch olesterol #6 mL 05/09/24 09/12/24 Rx pen injector (Wolf Daughertyick) albuterol sulfate 90 mcg/actuation 2 puff inhalation Q 4H PRN 06/17/24 09/17/24 History aerosol inhaler shortness of breath or wheez ing insulin glargine 100 unit/mL (3 20 unit subcut DAILY D cathleen 06/17/24 09/18/24 History mL) subcutaneous pen (Lantus [...] History obtained from others: none Consults: none [facility] Narrative: The patient was initially tachycardic [...] of breath. The patient ruled out by [facility] high-sensitivity troponin protocol for ACS. It is [...] Discharge home This note was generated with Umbrella Here dictation software. It may contain incorrectwords, spelling, [...] % (Auto) 65.7 Lymph % (Auto) 24.7 [place] % (Auto) 6.1 Eos % (Auto) 3.1 [...] evidence of acute cardiopulmonary disease. Reading Location: [id number] Discharge Plan Triage Chief Complaint: Chest Pain [...] (DME) pen needle, diabetic [Comfort EZ Pen Upton] 31 gauge x 5/16 needle See Rx [...] Referrals: Xiang Rogers, [Primary Care Provider] - Jose Garcia MD [[facility] Staff - Active Staff] - Activity Restrictions/Additional Instructions: Thank you for trusting us with your care today! Please take prescribed Lasix. Please return to the emergency department if your symptoms change or worsen. Specifically develop worsening chest pain, leg swelling or shortness of breath. Please follow with your primary care physician for further outpatient evaluationand management. Print Language: Maldivian Disposition Disposition: Home, Self Care What to do if you have Problems For any increased pain, shortness of breath, bleeding, nausea or vomiting, chestpain, or any unexpected problems, contact your Primary Care Provider. Call [facility] ([phone]) or report to the closest Emergency Room. Call 911 if necessary. 10/19/24 2321 <Electronically signed by Valentín Miller DO> Cosigner Signature (if applicable): CC: Dr. Xiang Rogers, DO ~ Signed [facility] Work Phone: 1([phone]) 182-822506-18-2025 Discharge summary Author Donna Wolff [facility] Note Date/Time September 21, 2024 4:[address] [facility] Medical Records Department [address] [place] [address] Instructions for Home/Discharge Instructions 09/21/24 1537 MR#: [id number] Acct: [id number] Name: JAYLEN MEJIA Sr. Rep #:[id number] [...] When you eat out, ask that the sushi chef not add any salt to your dish. Don't eat fried or greasy foods. Be careful of bottled beverages. They can contain a lot of salt -Call 911 right away if you have: -Severe shortness of breath, such that you can't catch your breath even while resting -Severe chest pain that does not resolve with rest or nitroglycerin -[place], foamy mucus with cough and shortness of [...] (DME) pen needle, diabetic [Comfort EZ Pen Upton] 31 gauge x 5/16 needle See Rx [...] Week Magaly Abdi PA [Med Staff - [facility] Prof] - Within 2 Weeks Disposition Disposition (needs filled in before D/C Order can be placed): Home, Self Care 09/21/24 1622<Electronically signed by Donna Wolff MD>Donna Wolff MD CC: Dr. Clinton Soares DO; Dr. Xiang Rogers DO; Dr. Seth Carrington DO ~ Signed [facility] Work Phone: 1(301) 671-179606-18-2025 [facility]06-17-2025 Progress note Author Seth Carrington [facility] Note Date/Time September 20, 2024 7:[address] [facility] Medical Records Department [address] [place] [address] Progress Note - Hospitalist 09/20/241909 MR#: [id number] Acct: [id number] Name: JAYLEN MEJIA Sr. Rep #:[id number] : 1960 64 From: Seth Carrington DO PCP: Dr. Xiang Rogers, DO Status:AD M IN Location: [place] [address] Hospitalist Note Additional note: Per my review [...] 20 mg daily, Zetia 10 mg daily, Yohlor10 mg daily. Patient is not taking the following medications: Spironolactone 25 mg daily, Lasix 40 mg twice daily, atorvastatin 80 mg daily, metformin 1000 mg twice daily, Pletal 50 mg daily. 09/20/241911 <Electronically signed by Seth Carrington DO> Cosigner Signature (if applicable): CC: ~ Signed [facility] Work Phone: 1(606) 721-525706-17-2025 Progress note Author [facility] Note Date/Time September 20, 2024 6:[address] [facility] Medical Records Department [address] [place] [address] Progress Note - Hospitalist 09/19/241899 MR#: [id number] Acct: [id number] Name: JAYLEN MEJIA . Rep #:[id number] : 1960 64 From: Seth Carrington DO PCP: Dr. Xiang Rogers, DO Status:AD M IN Location: [place] [address] Reason for Visit Reason for Visit: Diagnoses [...] fraction is 35 %. Normal LV size. [place] : Akinetic. Mid-Anterior : Severely Hypokinetic. Compared [...] 50 minutes Charges/Coding Visit Charges Inpatient E&M: 52075 Subs Hosp 09/20/24 1838 <Electronically signed by Seth Carrington DO> Cosigner Signature (if applicable): CC: ~ Signed [facility] Work Phone: [phone]) 653-469906-16-2025 Discharge summary Author Saúl Aguilar [facility] Note Date/Time September 18, 2024 10:[address] [facility] Medical Records Department [address] [place] [address] Emergency Department Summary 09/18/24 MR#: [id number] Acct: [id number] Name: JAYLEN MEJIA Sr. Rep #:[id number] : 1960 64 From: Saúl Saravia PCP: Dr. Xiang Rogers, DO Status:AD M IN Location: [place] [address] HPI History of Present Illness Chief Complaint: [...] or OCP + Smoking + >/=35 [facility]SH [facility] Medical History GERD (gastroesophageal reflux disease) [...] Nicotine dependence Atherosclerosis of coronary artery of [place] heart without angina pectoris Hyperlipidemia Essential (primary) [...] Unkno wn Rx 08/19 (Comfort EZ Pen Upton) evolocumab 140 mg/mL subcutaneous 140 mg subcut [...] % (Auto) 61.9 Lymph % (Auto) 27.0 [place] % (Auto) 6.7 Eos % (Auto) 3.7 [...] 10:26 IMPRESSION: No Acute Findings. Reading Location: [facility] Portable 1 view chest x-ray was [...] asinus tachycardia with a rate of 103. MI interval, QRS interval, and QTc intervals were all normal. [place] was normal. There are nonspecific ST-T wave [...] (DME) pen needle, diabetic [Comfort EZ Pen Upton] 31 gauge x 5/16 needle See Rx [...] DO [Primary Care Provider] - Print Language: Maldivian Disposition Disposition: Acute Care Hospital [facility] What to do if you have Problems For any increased pain, shortness of breath, bleeding, nausea or vomiting, chestpain, or any unexpected problems, contact your Primary Care Provider. Call [facility] ([phone]) or report to the closest Emergency Room. Call 911 if necessary. 09/18/242234 <Electronically signed by Saúl Aguilar DO> Cosigner Signature (if applicable): CC: Dr. Xiang Rogers DO ~ Signed [facility] Work Phone: 1(486) 130-836206-15-2025 History and physical note Author Clinton Soares [facility] Note Date/Time September 18, 2024 2:16 pm [facility] Medical Records Department [address] [place] [address] H&P Exam - Hospitalist 09/18/24 9519 MR#: [id number] Acct: [id number] Name: JAYLEN MEJIA Sr. Rep #:[id number] : 1960 64 From: Clinton khan DO PCP: Dr. Xiang Rogers, DO Status:AD M IN Location: [facility] [id number] HPI - General General Date of Admission: 09/18/24 Date of Service: 09/18/24 Chief Complaint: Shortness of breath and chest discomfort HPI Narrative JAYLEN MEJIA, is a 64 M who presented to [facility] ED on 09/18/2024 with chest pain and volume overload. [facility] Has [facility] of [...] Will be admitted for further management. [facility] Medical History GERD (gastroesophageal reflux disease) [...] Nicotine dependence Atherosclerosis of coronary artery of [place] heart without angina pectoris Hyperlipidemia Essential (primary) [...] Unkno wn Rx 08/19 (Comfort EZ Pen Upton) evolocumab 140 mg/mL subcutaneous 140 mg subcut [...] % (Auto) 61.9, Lymph % (Auto) 27.0, [place]% (Auto) 6.7, Eos % (Auto) 3.7, Baso [...] 10:26 IMPRESSION: No Acute Findings. Reading Location: [id number] Assessment & Plan Assessment/Plan (1) Acute on chronic HFrEF (heart failure with reduced ejection fraction): PLAN: Plan Patient is a 64-year-old male who presented to [facility] ED on 09/18/2024 with shortness of breath, [...] with A1c values consistently above 10% since [id number]. Repeat A1c ordered. Glucose 184 on admit. [...] 75 minutes. Charges/Coding Visit Charges Inpatient E&M: 98996 Init Hosp L3 09/18/24 1416 <Electronically signed by Clinton Soares DO> Cosigner Signature (if applicable): CC: Dr. Clinton Soares, ; Dr. Xiang Rogers DO~ Signed [facility] Work Phone: 1(693) 595-507706-15-2025 Radiology Diagnostic study [facility]04-29-2025 Evaluation note* Diagnosis Onset Date Resolution Status Admit Date CHF (congestive heart failure) acute August 02, [...] September 27, 2024 9:55am Essential (primary) hypertension chronic September 27, 2024 9:55am Hyperlipidemia chronic September 27, 2024 9:55am Nicotine dependence chronic September 27, 2024 9:55am Stenosis of right carotid artery chronic September 27, 2024 9:55am H/O coronary artery bypass surgery 2007 resolved September 27, 2024 9:55am Aortic valve stenosis acute Oct 10:15am LV dysfunction acute November 03, 2024 10:15am Essential (primary) hypertension chronic November 03, 2024 10:15am Hyperlipidemia chronic November 03, 2024 10:15am Nicotine dependence chronic November 03, 2024 10:15am Stenosis of right carotid artery chronic November 03, 2024 10:15am H/O coronary artery bypass surgery 2007 resolved November 03, 2024 10:15am Type 2 diabetes mellitus treated with insulin acute November 04, 2024 1:36pm Acute on chronic HFrEF (hear t failure with reduced ejection fraction) chronic November 04, 2024 1:36pm 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 November 04, 2024 1:36pm Essential (primary) hypertension chronic November 04, 2024 1:36pm Hyperlipidemia chronic November 1:36pm Lymphorrhea acute November 10, 025 10:05am Acute on chronic HFrEF (hear t failure with reduced ejection fraction) chronic November 10, 2024 10:05am 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 November 10, 2024 10:05am Essential (primary) hypertension chronic November 10, 2024 10:05am Acute HFrEF (heart failure w ith reduced ejection fraction) acute 2024 7:31pm Acute on chronic HFrEF (hear t failure with reduced ejection fraction) chronic November 10, 2024 7:31pm Essential (primary) hypertension chronic November 10, 2024 7:31pm Hyperlipidemia chronic November 7:31pm Nicotine dependence chronic 2024 7:31pm Stenosis of right carotid artery chronic November 10, 2024 7:31pm H/O coronary artery bypass surgery 2007 resolved November 10, 2024 7:31pm [facility] Work Phone: 1(481) 258-157504-29-2025 Evaluation note* Diagnosis Onset Date Resolution Status Admit Date CHF (congestive heart failure) acute August 02, 2024 11:21am Type 2 diabetes mellitus treated with insulin acute August 02, 2024 11:21am Hyperlipidemia chronic July 11:21am Nicotine dependence chronic August 02, 2024 11:21am Acute on chronic HFrEF (hear t failure with reduced ejection fraction) resolved September 18, 2024 1:39pm Aortic valve stenosis acute Tima 2024 9:55am LV dysfunction acute September 27, 2024 9:55am Essential (primary) hypertension chronic September 27, 2024 9:55am Hyperlipidemia chronic September 27, 2024 9:55am Nicotine dependence chronic September 27, 2024 9:55am Stenosis of right carotid artery chronic September 27, 2024 9:55am H/O coronary artery bypass surgery 2007 resolved September 27, 2024 9:55am Aortic valve stenosis acute Oct 10:15am LV dysfunction acute November 03, 2024 10:15am Essential (primary) hypertension chronic November 03, 2024 10:15am Hyperlipidemia chronic November 03, 2024 10:15am Nicotine dependence chronic November 03, 2024 10:15am Stenosis of right carotid artery chronic November 03, 2024 10:15am H/O coronary artery bypass surgery 2007 resolved November 03, 2024 10:15am Type 2 diabetes mellitus treated with insulin acute November 04, 2024 1:36pm 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 November 04, 2024 1:36pm Essential (primary) hypertension chronic November 04, 2024 1:36pm Hyperlipidemia chronic November 1:36pm Acute on chronic HFrEF (hear t failure with reduced ejection fraction) resolved November 04, 2024 1:36pm Lymphorrhea acute November 10, 10:05am 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 November 10, 2024 10:05am Essential (primary) hypertension chronic November 10, 2024 10:05am Acute on chronic HFrEF (hear t failure with reduced ejection fraction) resolved November 10, 2024 10:05am Essential (primary) hypertension chronic November 10, 2024 7:31pm Hyperlipidemia chronic November 7:31pm Nicotine dependence chronic 2024 7:31pm Stenosis of right carotid artery chronic November 10, 2024 7:31pm Acute HFrEF (heart failure w ith reduced ejection fraction) resolved 2024 7:31pm Acute on chronic HFrEF (hear t failure with reduced ejection fraction) resolved November 10, 2024 7:31pm H/O coronary artery bypass surgery 2007 resolved November 10, 2024 7:31pm Carotid artery disease acute [place] 2024 9:43am Lower extremity edema acute Nov us2024 9:43am PAD (peripheral artery disease) acut e November 16, 2024 9:43am [facility] Work Phone: 1(620) 422-567904-10-2025 Evaluation note* Diagnosis Onset Date Resolution Status [...] ejection fraction) chronic November 10, 2024 10:05am [facility] Work Phone: 1(335) 539-354304-10-2025 Evaluation note* Diagnosis Onset Date Resolution Status [...] failure w ith reduced ejection fraction) acute 2024 7:21pm [facility] Work Phone: 1(665) 331-518804-08-2025 Evaluation note* Diagnosis Onset Date Resolution Status [...] surgery 2007 resolved September 27, 2024 9:55am [facility] Work Phone: 1([phone]) 196-428304-08-2025 Evaluation note* Diagnosis Onset Date Resolution Status [...] surgery 2007 resolved November 03, 2024 10:15am [place] [facility] [address] Services Work Phone: 1(985) 555-387903-17-2025 [facility]03-15-2025 Evaluation note* Diagnosis Onset Date [...] ejection fraction) chronic September 18, 2024 1:39pm [facility] Work Phone: 1(148) 778-326103-15-2025 Evaluation note* Diagnosis Onset Date Resolution Status [...] surgery 2007 resolved September 27, 2024 9:55am [place] [facility] Services Work Phone: 1(208) 534-888903-12-2025 [facility]02-11-2025 Evaluation note* Diagnosis Onset Date [...] Nicotine dependence chronic August 02, 2024 11:21am [facility] Work Phone: 1(507) 653-693611-20-2024 Evaluation note* Diagnosis Onset Date Resolution Status [...] er extremity with ulceration acute 2024 12:40pm [facility] Work Phone: 1(675) 151-211109-26-2024 History of Present illness Narrative* Gab Culver, BROOKE.PRESS OPERATOR APPRENTICE - 12/31/2023 9:33 AM EDT Subjective HPI [...] non-ST elevation myocardial infarction (NSTEMI) 06/11/[address] Herrera Valles Hypertension Other emphysema (HCC) Pancreatitis Stenosis of [...] of care. This note was generated using Umbrella Here software. It may contain errors in wording, punctuation, or spelling. Gab Culver APRN.TURNER documented in [facility]23 Hospital Discharge instructions Additional Instructions Your [...] please return to the ER for repeat [facility] Work Phone: 1(243) 915-686311-01-2022 NoteHNO ID: [id number] Author: Yamilka Parekh MD Service: ? Author [...] non-ST elevation myocardial infarction (NSTEMI) 06/11/[address] Herrera Valles Hypertension Other emphysema (HCC) Pancreatitis Stenosis of [...] any blood vessels/nerv (more content not included)... [facility]11-01-2022 History of Present illness Narrative* [...] non-ST elevation myocardial infarction (NSTEMI) 06/11/[address] Herrera Valles Hypertension Other emphysema (HCC) Pancreatitis Stenosis of [...] Straightforward Yamilka Parekh MD documented in this encounterLanc[facility]10-25-2022 NoteHNO ID: [id number] Author: Yamilka Parekh MD Service: ? Author [...] non-ST elevation myocardial infarction (NSTEMI) 06/11/[address] Herrera Valles Hypertension Other emphysema (HCC) Pancreatitis Stenosis of [...] and completing appropriate m (more content not included)...[facility]10-25-2022 History of Present illness Narrative* [...] non-ST elevation myocardial infarction (NSTEMI) 06/11/[address] Herrera Valles Hypertension Other emphysema (HCC) Pancreatitis Stenosis of [...] documentation. Yamilka Parekh MD documented in this encounterLanc[facility]10-25-2022 NoteHNO ID: [id number] Author: ROBLES Leblanc) Service: ? Author Type: Professor Of Food Biochemistry Type: Progress Notes Filed: 01/28/2022 3:01 PM [...] BY: RT Betsy(Suman) January 28, 2022 3:01 [facility]10-25-2022 History of Present illness Narrative* Hazel [...] 28, 2022 3:01 PM documented in this encounterLancaster [facility]10-03-2022 NoteHNO ID: [id number] Author: Yamilka Parekh MD Service: ? Author Type: Physician Type: Progress Notes Filed: 01/08/2022 12:57 PM Note Text: Jaylen L Chelle 1960 REFERRING PHYSICIAN: Self CHIEF COMPLAINT: Consult [...] non-ST elevation myocardial infarction (NSTEMI) 06/11/[address] Herrera Valles Hypertension Other emphysema (HCC) Pancreatitis Stenosis of [...] REVIEW OF SYSTEMS: General: (more content not included)...[facility]10-03-2022 History of Present illness Narrative* [...] non-ST elevation myocardial infarction (NSTEMI) 06/11/[address] Herrera Valles Hypertension Other emphysema (HCC) Pancreatitis Stenosis of [...] entered by the nurse and reviewed by ok Nursing Notes: Allison Haines RN 01/06/2022 9:32 [...] of any pertinent laboratory studies/radiological imaging/medical records, nzcy-[id number]-[id number] care, obtaining oral medical history from the patient in this encounter, performing a medically appropriate examination, counseling and educating the patient/family/caregiver, and ordering and/or scheduling of medications/tests/procedures, and completing appropriate medical documentation. Yamilka Parekh MD documented in this encounterLanc[facility]10-03-2022 Nurse Note* Allison Haines RN - [...] Unknown Allison Haines RN documented in this encounterLancaster [facility]04-14-2022 NoteHNO ID: [id number] Author: Gab Culver APRN.PRESS OPERATOR APPRENTICE Service: ? Author Type: Nurse Practitioner Type: [...] type 2 in obese (HCC) - Hyperlipidemia Compressor Operator Dr. Herrera Valles - Hypertension - Pancreatitis - Tobacco use [...] He is not diaphoretic (more content not included)...[facility]04-14-2022 Instructions* Patient Instructions* Gab Culver APRN.PRESS OPERATOR APPRENTICE - 07/18/2021 1:15 PM EDT RESPIRATORY INFECTION [...] spread by coughs, sneezes, anddirect contact, especially [id number]-[id number]. A respiratory tract infection usually clears up [...] 102 F (39 C). documented in this encounterLanc[facility]04-14-2022 History of Present illness Narrative* Gab [...] mellitus type 2 in obese (HCC) Hyperlipidemia Compressor Operator Dr. Herrera Valles Hypertension Pancreatitis Tobacco use disorder PAST SURGICAL [...] of care. This note was generated using Umbrella Here software. It may contain errors in wording,punctuation, or spelling. Gab Culver APRN.PRESS OPERATOR APPRENTICE documented in this encounterLancaster [facility] Hospital12-27-2021 NoteHNO ID: [id number] Author: Maxx Owen APRN.TURNER Service: ? Author Type: Nurse Practitioner Type: Progress Notes Filed: 04/01/2021 8:29 AM Note Text: CC: Patient presents with: Ear Pain: FELIPE ear pain x this AM HPI: Jaylen [...] type 2 in obese (HCC) - Hyperlipidemia Compressor Operator Dr. Herrera Valles - Hypertension - Pancreatitis - Tobacco use [...] see if it reli (more content not included)...[facility]03-08-2019 Evaluation note* Diagnosis Onset Date [...] Insulin dependent diabetes mellitus chronic Nicotine dependence [facility] Work Phone: Discharge summary Author Steve Fields [facility] Note Date/Time November 13, 2024 1: 32pm [facility] Medical Records Department [address] [place] [address] Discharge Summary 11/13/24 1328 MR#: [id number] Acct: [id number] Name: JAYLEN MEJIA Sr. Rep #:[id number] : 1960 64 From: Steve Fields MD PCP: Dr. Xiang Rogers, DO Status:AD M IN Location: [address] Providers Date of Admission: 11/10/24 Date of Discharge: 11/13/24 Primary Care Physician: Dr. Xiang Rogers, Consultations 11/10/24 20:45 Consult: Onc/Wound/anodic operator Routine Comment: Reason for Consult:: BL LE stasis wounds/blisters, admit with HF Exac 11/11/24 15:03 Consult: Cardiology Routine Consulting Provider: Buck Trevino Reason for Consult: HFrEF/SOB/BLE EDEMA EMERGENT Consult: No MD Notified: Yes Date Notified: 11/11/24 Time Notified: 15:03 Method of Notification: Verbal Reason For Visit: ACUTE HFREF EXACERBATION Diagnosis Discharge Diagnosis (1) Acute HFrEF (heart failure with reduced ejection fraction): Status: Acute Code(s): I50.21 - Acute systolic (congestive) heart failure Plan Patient is a 64-year-old gentleman who presented with a week history of progressive shortness of breath with bilateral lower extremity edema 1. Acute on chronic congestive heart failure with reduced ejection fraction ? Echo from 09/18/2024 demonstrated LVEF of 35% with akinetic apex and severely hypokinetic mid anterior region. Patient presented with exertional dyspnea bilateral lower extremity edema and was found to have elevated proBNP and assessment of acute decompensated CHF made. Patient admitted to monitored bed continue strict input and output, daily weight, low-sodium diet, fluid restriction as well as diuretic therapy with furosemide ? 11/12/2024; consult was placed to cardiology patient was seen by Dr. Trevino recommended addition of Entresto Farxiga and Aldactone ? 11/13/2024 patient has experienced on 8 kg weight loss from diuresis since admission. Currently remains on oxygen supplementation 2 L flow per minute. Plan is for patient to be assessed for home oxygen prior to making decision regarding discharge. Patient did not require oxygen on discharge 2. Coronary artery disease ? With previous CABG patient is on guideline directed medical therapy except forstatin due to intolerance 3. COPD ? Aerosol treatments as needed 4. Peripheral arterial disease with known history of carotid artery stenosis ? Status post CEA 5. Diabetes mellitus type II -patient's oral hypoglycemics held. Placed on long acting insulin, Accu-Cheks a.c. and at bedtime and covered with sliding scale insulin. Patient glucose control not optimal adjusted long-acting insulin dose 6. GERD ? On PPI 7. Hypertension ? Blood pressure controlled, home medications continued with dose adjustment as needed 8. Dyslipidemia ? Patient apparently has intolerance to statin therapy currently on Repatha discontinued 9. Tobacco dependence ? Counseled on cessation, offered nicotine patch for tobacco cravings 10. History of previous CVA ? With residual mild facial droop. Patient is on dual antiplatelet therapy did continue 11. DVT prophylaxis ? Subcu Lovenox Medications at Discharge Home Medications blood sugar diagnostic (FreeStyle Test strips) #50 ea 04/02/21 blood-glucose meter (FreeStyle System Kit) #1 ea 04/02/21 lancets 28 gauge (FreeStyle Lancets) #50 ea 04/02/21 pen needle, diabetic 31 gauge x 3/16 (1st Tier Unifine Pentips Plus) #100 ea 04/02/21 Handicap placard #1 ea 07/22/23 pen needle, diabetic 31 gauge x 5/16 (Comfort EZ Pen Upton) #100 ea 10/28/23 evolocumab 140 mg/mL subcutaneous pen injector (Repatha SureClick) 140 mg [id number] cholesterol #6 mL 05/09/24 insulin glargine 100 unit/mL (3 mL) subcutaneous pen (Lantus Solostar U-100 Insulin) 20 unit subcut DAILY Diabetes 06/17/24 omeprazole 20 mg capsule,delayed release 20 mg PO DAILY reflux #90 caps 09/13/24 fluticasone propionate 50 mcg/actuation nasal spray,suspension (Flonase Allergy Relief) 2 spray intranasal DAILY PRN nasal congestion 09/18/24 nitroglycerin 0.4 mg sublingual tablet 0.4 mg sublingual Q5M PRN Cardiac/Chest Pain #25 tabs 09/27/24 aspirin 81 mg chewable tablet 81 mg PO BREAKFAST preventative #90 tabs 11/03/24 clopidogrel 75 mg tablet 75 mg PO DAILY antiplatelet #90 tabs 11/03/24 dapagliflozin propanediol 10 mg tablet (Farxiga) 10 mg PO DAILY diabetes #90 TABLETS 11/03/24 ezetimibe 10 mg tablet 10 mg PO DAILY cholesterol #90 tabs 11/03/24 albuterol sulfate 90 mcg/actuation aerosol inhaler 2 puff inhalation Q4H PRN shortness of breath or wheezing #6.7 grams 11/04/24 mometasone-formoterol HFA 100 mcg-5 mcg/actuation aerosol inhaler (Dulera) 2 puff inhalation BID COPD #13 grams 11/04/24 furosemide 40 mg tablet 40 mg PO BID diuretic 60 days #120 tabs 11/13/24 nicotine 21 mg/24 hr daily transdermal patch 1 patch transdermal DAILY #56 ea 11/13/24 sacubitril 24 mg-valsartan 26 mg tablet (Entresto) 1 tab PO BID #60 tabs 11/13/24 spironolactone 25 mg tablet 25 mg PO DAILY diuretic 60 days #60 tabs 11/13/24 Hospital Course Summary of Care Provided Minutes Spent on Discharge: 35 Physical Exam Narrative GENERAL: cooperative HEENT: Atraumatic; normocephalic EYES; Anicteric, Normal Conjunctiva NECK; supple, normal thyroid, RESPIRATORY: Diminished to auscultation CARDIOVASCULAR: Regular S1 S2, GI: soft, normoactive bowel sounds, : No Renal angle tenderness; EXTREMITIES: felipe edema, no clubbing, MUSCULOSKELETAL: no muscle wasting NEURO: Awake; no lateralizing signs. SKIN: Bilateral lower extremity stasis dermatitis PSYCH; Flat affect Weight / BMI Weight Weight: 89.6 kg Body Mass Index (BMI) 27.6 ABG / Lab / Microbiology Data 11/13/24 05:13 11/13/24 05:13 Laboratory: Laboratory Results - last 24 hr 11/12/24 16:20: POC Glucose 201 H 11/12/24 21:51: POC Glucose 253 H 11/13/24 05:13: WBC 7.4, RBC 4.27 L, Hgb 12.9 L, Hct 39.8 L, MCV 93.2, MCH 30.2,MCHC 32.4, RDW Std Deviation 47.8 H, RDW Coeff of Maycol 14.1, Plt Count 321, MPV 9.2, Immature Gran % (Auto) 0.400, Neut % (Auto) 67.3, Lymph % (Auto) 20.0, [place]% (Auto) 8.9, Eos % (Auto) 3.1, Baso % (Auto) 0.3, Absolute Neuts (auto) 5.0, Absolute Lymphs (auto) 1.48, Nucleated RBC % 0, Sodium 137, Potassium 3.8, Chloride 100, Carbon Dioxide 26.1, Anion Gap 11, BUN 22 H, Creatinine 0.98, Estim Creat Clear Calc 89.59, Est GFR (MDRD) Non-Af 86, BUN/Creatinine Ratio 22.2 H, Glucose 98, Calcium 8.8 11/13/24 06:36: POC Glucose 88 11/13/24 11:36: POC Glucose 200 H Microbiology: Microbiology 11/10/24 16:55 Mucosa - Nose SARS-CoV-2, Influenza & RSV (PCR) - Final D/C Instructions Discharge Activity: Return to Normal Activity Call your doctor if you observe: Fever of 101 or Higher, Shortness of breath, Fainting spells and Chest pain DC O2, CPAP, BIPAP Needs Home O2 Discharge instructions: No Meaningful Use Info Meaningful Use Meaningful Use Diagnoses (Choose all that apply): CHF CHF SANDRA/ARB ordered at discharge?: Yes Documented LVEF (%): 35 Discharge Plan Admission Admit Date/Time: 11/10/24 19:31 Attending Provider: Steve Fields Primary Care Provider: Xiang Rogres Consulting Providers: Corazon Diaz; Buck Trevino Discharge Orders/Prescriptions Prescriptions: New sacubitril-valsartan [Entresto] 24-26 mg Tablet 1 tab PO BID Qty: 60 0RF nicotine 21 mg/24 hr patch 24 hour 1 patch transdermal DAILY Qty: 56 0RF Continued (DME) Handicap placard See Rx Instructions .Route .MEDSUPPLY Qty: 1 0RF Rx Instructions: Due to COPD, unable to walk 50 yards without assistance, duration 5 years. (DME) pen needle, diabetic [Comfort EZ Pen Upton] 31 gauge x 5/16 needle See Rx Instructions .Route Qty: 100 3RF Rx Instructions: As directed nitroglycerin 0.4 mg tablet, sublingual 0.4 mg Sublingual Q5M PRN (Reason: Cardiac/Chest Pain) Qty: 25 1RF albuterol sulfate 90 mcg/actuation HFA aerosol inhaler 2 puff inhalation Q4H PRN (Reason: shortness of breath or wheezing) Qty: 6.7 1RF Dulera 100-5 mcg/actuation HFA aerosol inhaler 2 puff inhalation BID Qty: 13 1RF clopidogrel 75 mg tablet 75 mg PO [...] congestion) Rx Instructions: administer into each nostril spironolactone 25 mg tablet 25 mg PO DAILY 60 Days Qty: 60 3RF insulin glargine [Lantus Solostar U-100 Insulin] 100 unit/mL (3 mL) insulin pen 20 unit subcut DAILY (DME) FreeStyle Test Strip See Rx Instructions [...] 20 mg PO DAILY Qty: 90 1RF Changed furosemide 40 mg tablet 40 mg PO BID 60 Days Qty: 120 3RF Referrals / Follow Up: Calos Quinn MD [Med Staff - Active Staff] - Within 1 Month Xiang Rogers DO [Primary Care Provider] - Within 2 Weeks Disposition Disposition (needs filled in before D/C Order can be placed): Home Health Service Charges/Coding Visit Charges Inpatient E&M: 28979 Disch Hosp >30min 11/13/24 1332 <Electronically signed by Steve Fields MD> Cosigner Signature (if applicable): CC: Dr. Steve Fields MD; Dr. 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 Hyperlipidemia chronic Insulin dependent diabetes mellitus chronic H/O coronary artery bypass surgery 2007 resolved [facility] Work Phone: Evaluation note* Diagnosis Onset Date Resolution Status Essential (primary) hypertension chronic Insulin dependent diabetes mellitus chronic Stenosis of right carotid artery chronic H/O coronary artery bypass surgery 2007 resolved [facility] Work Phone: Evaluation note* Diagnosis Onset Date Resolution Status Essential (primary) hypertension chronic Insulin dependent diabetes mellitus chronic Stenosis of right carotid artery chronic H/O coronary artery bypass surgery 2006 resolved Essential (primary) hypertension chronic Insulin dependent diabetes mellitus chronic Stenosis of right carotid artery chronic [facility] Work Phone: Evaluation note* Diagnosis Left groin pain- Primary Abdominal pain, left lower quadrant [facility] Diagnosis Left groin pain- Primary Abdominal pain, left lower quadrant documented [facility] this encounter [facility]* Diagnosis Recurrent left inguinal hernia- Primary Inguinal hernia without mention of obstruction or gangrene, recurrent unilateral or unspecified [facility] this encounter [facility]* Diagnosis Onset Date Resolution Status Essential (primary) hypertension chronic Insulin dependent diabetes mellitus chronic Stenosis of right carotid artery [facility] Work Phone: Evaluation note* Diagnosis Onset Date Resolution Status Essential (primary) hypertension chronic Insulin dependent diabetes mellitus chronic Stenosis of right carotid artery chronic [id number] acute Nicotine dependence [facility] Work Phone: Evaluation note* Diagnosis Onset Date Resolution Status Essential (primary) hypertension chronic Insulin dependent diabetes mellitus chronic Stenosis of right carotid artery chronic [id number] acute Nicotine dependence chronic Essential (primary) hypertension chronic Hyperlipidemia chronic Insulin dependent diabetes mellitus chronic H/O coronary artery bypass surgery 2006 resolved NSTEMI, initial episode of care acute Insulin dependent diabetes mellitus chronic Nicotine dependence chronic [facility] Work Phone: Evaluation note* Diagnosis Onset Date Resolution Status [id number] acute Nicotine dependence chronic Essential (primary) hypertension [...] H/O coronary artery bypass surgery 2007 resolved [facility] Work Phone: Evaluation note* Diagnosis Left groin pain Abdominal pain, left lower quadrant [facility] encounter [facility]* Diagnosis Onset Date Resolution Status Essential (primary) hypertension chronic Hyperlipidemia chronic Nicotine dependence chronic Stenosis of right carotid artery chronic H/O coronary artery bypass surgery 2006 resolved Non-STEMI (non-ST elevated myocardial infarction) acute 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 Essential (primary) hypertension chronic Insulin dependent diabetes mellitus chronic Nicotine dependence chronic [facility] Work Phone: Evaluation note* Diagnosis Onset Date Resolution Status Non-STEMI (non-ST elevated myocardial infarction) acute 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 Medical Records Department [address] [place] [address] H&P Exam - Hospitalist 09/18/24 1339 MR#: [id number] Acct: [id number] Name: JAYLEN MEJIA Sr. Rep #:[id number] : 1960 64 From: Clinton khan DO PCP: Dr. Xiang Rogers, DO Status:AD M IN Location: [facility] [id number] HPI - General General Date of Admission: 09/18/24 Date of Service: 09/18/24 Chief Complaint: Shortness of breath and chest discomfort HPI Narrative JAYLEN MEJIA, is a 64 M who presented to [facility] ED on 09/18/2024 with chest pain and volume overload. [facility] Has [facility] of [...] Will be admitted for further management. [facility] Medical History GERD (gastroesophageal reflux disease) [...] Nicotine dependence Atherosclerosis of coronary artery of [place] heart without angina pectoris Hyperlipidemia Essential (primary) [...] Unkno wn Rx 08/19 (Comfort EZ Pen Upton) evolocumab 140 mg/mL subcutaneous 140 mg subcut [...] % (Auto) 61.9, Lymph % (Auto) 27.0, [place]% (Auto) 6.7, Eos % (Auto) 3.7, Baso [...] 10:26 IMPRESSION: No Acute Findings. Reading Location: [id number] Assessment & Plan Assessment/Plan (1) Acute on chronic HFrEF (heart failure with reduced ejection fraction): PLAN: Plan Patient is a 64-year-old male who presented to [facility] ED on 09/18/2024 with shortness of breath, [...] with A1c values consistently above 10% since [id number]. Repeat A1c ordered. Glucose 184 on admit. [...] 75 minutes. Charges/Coding Visit Charges Inpatient E&M: 33772 Init Hosp L3 09/18/24 1416 <Electronically signed by Clinton Soares DO> Cosigner Signature (if applicable): CC: Dr. Clinton Soares, DO; Dr. Xiang Rogers DO~ Signed [facility] Work Phone: History and physical note Author Corazon Diaz [facility] Note Date/Time November 10, 2024 7:5 6pm [facility] Medical Records Department [address] [place] [address] H&P Exam - Hospitalist 11/10/24 193 MR#: [id number] Acct: [id number] Name: JAYLEN MEJIA Hannah Schmitt. Rep #:[id number] : 1960 64 From: Corazon Diaz MD PCP: Dr. Xiang Rogers, Status:RE G ER Location: ED HPI - [...] x 4, Tobacco use whopresents to the [facility] ED on 11/10/2024 with history of recently [...] Nicotine dependence Atherosclerosis of coronary artery of [place] heart without angina pectoris Hyperlipidemia Essential (primary) [...] Unkno wn Rx 08/19 (Comfort EZ Pen Upton) evolocumab 140 mg/mL subcutaneous 140 mg subcut Q2W ch olesterol #6 mL 05/09/24 09/12/24 Rx pen injector (Repatha SureClick) insulin glargine 100 unit/mL (3 20 [...] % (Auto) 69.7, Lymph % (Auto) 20.2, [place]% (Auto) 8.0, Eos % (Auto) 1.5, Baso [...] right. Increased from prior exam. Reading Location: [facility] Assessment & Plan Assessment/Plan (1) Acute HFrEF (heart failure with reduced ejection fraction): PLAN: Plan The patient is a 64 y/o M w/ PMHx: Hx CVA w/ mild facial droop, CKD stage II perGFR trending, HFrEF, GERD, Anxiety and Depression, HTN, HLD, Diabetes mellitus type II, COPD/Asthma, Carotid disease s/p CEA, CAD s/p CABG x 4, Tobacco use whopresents to the [facility] ED on 11/10/2024 with history of recently [...] 16 minutes. Charges/Coding Visit Charges Inpatient E&M: 64147 Init Hosp L3 Procedures Hospitalists Procedures: 34494 Advncd Care Plan 30 Min 11/10/241955 <Electronically signed by Corazon Diaz MD> Cosigner Signature (if applicable): CC: Dr. Corazon Diaz MD; Dr. Xiang Rogers, DO~ Signed [facility] Work Phone: Hospital Discharge instructionsAdditional Instructions Thank you for trusting us with your care today! Please take prescribed Lasix. Please return to the emergency department if your symptoms change or worsen. Specifically develop worsening chest pain, leg swelling or shortness of breath. Please follow with your primary care physician for further outpatient evaluation and management.[facility] Work Phone: Hospital Discharge instructionsAdditional Instructions Your [...] the ER should you have any further concernsWMer[facility] Work Phone: Reason for referral (narrative)No reason for referral information availableWMercer County Community Hospital Work Phone: Advance Directives No Advanced Directives Records FoundDocuments on File Type Date Recorded Patient Wound Nurse Expl anation Advance Directive(s) 01/20/2017 7:47 AM Advance Directive(s) 09/05/2015 4:07 PM Advance Directive Response Recorded Date/ Time Advance Directives No January 13, 2020 3:59pm Living Will No July 18, 2021 9:19pm Power of Auto [place] No July 18 9:19pm Advance Directive Response Recorded Date/ Time Advance Directives No January 13, 2020 3:59pm Living Will No December 08 022 11:25pm Power of [employer] [place] No December 08, 2021 11:25pm Advance Directive Response Recorded Date/ Time Advance Directives No January 13, 2020 2:59pm Living Will No March 01 022 9:51pm Power of [employer] [place] [employer] No November 26th, 2022 9:51pm Advance Directive Response Recorded Date/ Time Advance Directives No January 13, 2020 2:59pm Living Will No April 18 1:40am Power of [employer] [place] [employer] No April 18, 2022 1:40am Advance Directive Response Recorded Date/ Time Advance Directives No January 13, 2020 2:59pm Living Will No May 21, 023 1:36am Power of [employer] [place] [employer] No May 21, 2022 1:36am Advance Directive Response Recorded Date/ Time Advance Directives No January 13, 2020 2:59pm Living Will No April 25 3:42pm Power of [place] No April 25, 2023 3:42pm Advance Directive Response Recorded Date/ Time Advance Directives No January 13, 2020 2:59pm Living Will No May 24 024 12:27am Power of [employer] [place] No May 24, 2023 12:27am Advance Directive Response Recorded Date/ Time Living Will No August 23, 2023 6 :30pm Do you have a Healthcare Power of Auto [place]? No August 23, 2023 6:30pm Advance Directives on File No [place] 2024 8:15am Living Will No April 20 8:15am Do you have a Healthcare Power of Auto [place]? No April 20, 2024 8:15am Advance Directives No April 20, 2024 8:15am Living Will No May 21 025 8:31pm Do you have a Healthcare Power of Auto [place]? No May 21, 2024 8:31pm Advance Directive Response Recorded Date/ Time Living Will No August 23, 2023 6 :30pm Do you have a Healthcare Power of Auto [place]? No August 23, 2023 6:30pm Living Will No May 21 2 025 8:31pm Do you have a Healthcare Power of Auto [place]? No May 21, 2024 8:31pm Living Will No June 18, 2024 6:24am Do you have a Healthcare Power of Auto [place]? No June 18, 2024 6:24am Do you have a Healthcare Power of Auto [place]? No July 29, 2024 8:08pm Advance Directives No April 20, 2024 8:15am Advance Directive Response Recorded Date/ Time Living Will No August 23, 2023 6 :30pm Do you have a Healthcare Power of Auto [place]? No August 23, 2023 6:30pm Do you have a Healthcare Power of Auto [place] [employer]? No September 18, 2024 10:00am Living Will No May 21 8:31pm Do you have a Healthcare Power of Auto [place] [employer]? No May 21, 2024 8:31pm Living Will No June 18, 2024 6:24am Do you have a Healthcare Power of Auto [place] [employer]? No June 18, 2024 6:24am Do you have a Healthcare Power of Auto [place] [employer]? No July 29, 2024 8:08pm Advance Directives No April 20, 2024 8:15am Advance Directive Response Recorded Date/ Time Living Will No August 23, 2023 6 :30pm Do you have a Healthcare Power of Auto [place]? No August 23, 2023 6:30pm Do you have a Healthcare Power of Auto [place] [employer]? No September 18, 2024 3:22pm Living Will No June 18, 2024 6:24am Do you have a Healthcare Power of Auto [place]? No June 18, 2024 6:24am Do you have a Healthcare Power of Auto [place] [employer]? No July 29, 2024 8:08pm Advance Directives No April 20, 2024 8:15am Advance Directive Response Recorded Date/ Time Living Will No August 23, 2023 6 :30pm Do you have a Healthcare Power of Auto [place]? No August 23, 2023 6:30pm Do you have a Healthcare Power of Auto [place] [employer]? No September 18, 2024 3:22pm Do you have a Healthcare Power of Auto [place]? No October 19, 2024 6:36pm Do you have a Healthcare Power of Auto [place]? No July 29, 2024 8:08pm Advance Directives No April 20, 2024 8:15am Advance Directive Response Recorded Date/ Time Living Will No August 23, 2023 6 :30pm Do you have a Healthcare Power of Auto [place]? No August 23, 2023 6:30pm Do you have a Healthcare Power of Auto [place]? No September 18, 2024 3:22pm Do you have a Healthcare Power of Auto [place] [employer]? No October 19, 2024 6:36pm Do you have a Healthcare Power of Auto [place] [employer]? Yes October 21, 2024 4:34pm Do you have a Healthcare Power of Auto [place]? No July 29, 2024 8:08pm Advance Directives No April 20, 2024 8:15am Advance Directive Response Recorded Date/ Time Living Will No August 23, 2023 6 :30pm Do you have a Healthcare Power of Auto [place]? No August 23, 2023 6:30pm Do you have a Healthcare Power of Auto [place] [employer]? No September 18, 2024 3:22pm Do you have a Healthcare Power of Auto [place] [employer]? No October 19, 2024 6:36pm Do you have a Healthcare Power of Auto [place] [employer]? Yes October 21, 2024 4:34pm Do you have a Healthcare Power of Auto [place] [employer]? No July 29, 2024 8:08pm Do you have a Healthcare Power of Auto [place] [employer]? Yes October 23, 2024 6:04pm Advance Directives No April 20, 2024 8:15am Advance Directive Response Recorded Date/ Time Living Will No August 23, 2023 6 :30pm Do you have a Healthcare Power of Auto [place] [employer]? No August 23, 2023 6:30pm Do you have a Healthcare Power of Auto [place] [employer]? No September 18, 2024 3:22pm Do you have a Healthcare Power of Auto [place] [employer]? No October 19, 2024 6:36pm Do you have a Healthcare Power of Auto [place] [employer]? Yes October 21, 2024 4:34pm Do you have a Healthcare Power of Auto [place] [employer]? No July 29, 2024 8:08pm Do you have a Healthcare Power of Auto [place] [employer]? Yes October 23, 2024 6:04pm Do you have a Healthcare Power of Auto [place]? No October 26, 2024 11:37pm Advance Directives No April 20, 2024 8:15am Advance Directive Response Recorded Date/ Time Living Will No August 23, 2023 6 :30pm Do you have a Healthcare Power of Auto [place]? No August 23, 2023 6:30pm Do you have a Healthcare Power of Auto [place]? No September 18, 2024 3:22pm Do you have a Healthcare Power of Auto [place]? No October 19, 2024 6:36pm Do you have a Healthcare Power of Auto [place] [employer]? Yes October 21, 2024 4:34pm Do you have a Healthcare Power of Auto [place] [employer]? No November 10, 2024 4:22pm Do you have a Healthcare Power of Auto [place] [employer]? No July 29, 2024 8:08pm Do you have a Healthcare Power of Auto [place] [employer]? Yes October 23, 2024 6:04pm Do you have a Healthcare Power of Auto [place] [employer]? No October 26, 2024 11:37pm Advance Directives No April 20, 2024 8:15am Advance Directive Response Recorded Date/ Time Living Will No August 23, 2023 6 :30pm Do you have a Healthcare Power of Auto [place]? No August 23, 2023 6:30pm Do you have a Healthcare Power of Auto [place]? No September 18, 2024 3:22pm Do you have a Healthcare Power of Auto [place]? No October 19, 2024 6:36pm Do you have a Healthcare Power of Auto [place] [employer]? Yes October 21, 2024 4:34pm Do you have a Healthcare Power of Auto [place]? No November 10, 2024 8:48pm Do you have a Healthcare Power of Auto [place] [employer]? No July 29, 2024 8:08pm Do you have a Healthcare Power of Auto [place] [employer]? Yes October 23, 2024 6:04pm Do you have a Healthcare Power of Auto [place] [employer]? No October 26, 2024 11:37pm Advance Directives No April 20, 2024 8:15am Advance Directive Response Recorded Date/ Time Living Will No August 23, 2023 6 :30pm Do you have a Healthcare Power of Auto [place]? No August 23, 2023 6:30pm Do you have a Healthcare Power of Auto [place] Driver? No September 18, 2024 3:22pm Do you have a Healthcare Power of Auto [place]? No October 19, 2024 6:36pm Do you have a Healthcare Power of Auto [place] [employer]? Yes October 21, 2024 4:34pm Do you have a Healthcare Power of Auto [place]? No November 10, 2024 8:48pm Do you have a Healthcare Power of Auto [place]? No November 22, 2024 9:54am Do you have a Healthcare Power of Auto [place]? No July 29, 2024 8:08pm Do you have a Healthcare Power of Auto [place] [employer]? Yes October 23, 2024 6:04pm Do you have a Healthcare Power of Auto [place] [employer]? No October 26, 2024 11:37pm Advance Directives [...] diabetes mellitus Stenosis of right carotid artery [id number] Nicotine dependence Chief Complaint 3 M FU Amb Documentation LOWER lung cancer screening SCREENING 3 M FU NSTEMI Reason for Visit Essential (primary) hypertension Insulin dependent diabetes mellitus Stenosis of right carotid artery [id number] Nicotine dependence Essential (primary) hypertension Hyperlipidemia Insulin dependent diabetes mellitus H/O coronary artery bypass surgery NSTEMI, initial episode of care Insulin dependent diabetes mellitus Nicotine dependence Chief Complaint LOWER lung cancer screening SCREENING 3 M FU NSTEMI NSTEMI NSTEMI NSTEMI [facility] FU- HEART ATTACK s/p [facility] ED NSTEMI 1-14 lower extrem Reason for Visit [id number] Nicotine dependence Essential (primary) hypertension Hyperlipidemia Insulin [...] 3 M FU NSTEMI NSTEMI NSTEMI NSTEMI [facility] FU- HEART ATTACK s/p [facility] ED NSTEMI 1-14 lower extrem EORDER Reason for Visit [id number] Nicotine dependence Essential (primary) hypertension Hyperlipidemia Insulin [...] hypertension Insulin dependent diabetes mellitus Nicotine dependence [id number] Nicotine dependence Chief Complaint Admit Date 3-4 M FU February 24, 2024 11:07am 3 M FU February 24, 2024 12:58pm PVD, OPEN WOUND March 09, 2024 9 :11am 4-5 WK FU March 22, 2024 10:47am Peripheral vascular disease, unspecified March 29, 2024 1:23pm 6 M FU April 01, 2024 9:49am Discuss CTA results April 08, 2024 12 :56pm Atherosclerosis of [place] arteries of [place] leg [place] April 20, 2024 6:47am Atherosclerosis of [place] arteries of ri ght leg [place] April [...] February 24, 2024 11:07am Essential (primary) hypertension [facility] r 2023 12:58pm Insulin dependent diabetes mellitus [facility] 2023 12:58pm Nicotine dependence February 24, [...] 17, 2024 12:40pm Acute hypoxemic respiratory failure [facility] 2024 4:45am Acute respiratory distress June 18, [...] [place] PD June 20, 2024 10:58am S/P [facility] 06/21July 12, 2024 9:51 am Discuss [...] PD June 20, 2024 10:58am S/P [facility] 18 July 12, 2024 9:51 am Discuss Results July [...] [place] June 20, 2024 10:58am S/P [facility] 06/21July 12, 2024 9:51 am Discuss [...] Visit Admit Date Acute hypoxemic respiratory failure [facility] 2024 4:45am Acute respiratory distress June 18, [...] Type 2 diabetes mellitus treated with [facility] August 02, 2024 11:21am Hyperlipidemia August 02, [...] 2024 9:55am Chief Complaint Admit Date S/P [facility] 06/21July 12, 2024 9:51 am Discuss [...] 2024 9:55am Chief Complaint Admit Date S/P [facility] 06/21July 12, 2024 9:51 am Discuss [...] 4:25 pm Chief Complaint Admit Date S/P [facility] 06/21July 12, 2024 9:51 am Discuss [...] 11:2 7pm Chief Complaint Admit Date S/P [facility] 06/21July 12, 2024 9:51 am Discuss [...] 2024 10:15am Chief Complaint Admit Date S/P [facility] 06/21July 12, 2024 9:51 am Discuss [...] November 03, 2024 10:1 5am 3 M FU/[facility] ER FU November 04, 2024 1:3 [...] November 03, 2024 10:1 5am 3 M FU/[facility] ER FU November 04, 2024 1:3 [...] October 26, 2024 11:2 7pm 6 WK November 03, 2024 10:1 5am 3 M FU/[facility] ER November 04, 2024 1:3 6pm ACUTE LEG SWELLING November 10, 2024 1 0:05am ACUTE HFREF [...] reduced ejection fraction) November 10, 2024 7:21pm Chief Complaint Admit Date chest pain July 29, 2024 7:5 8pm [...] November 03, 2024 10:1 5am 3 M FU/[facility] ER November 04, 2024 1:3 6pm ACUTE LEG SWELLING November 10, 2024 1 0:05am Shortness of breath November 10, 2024 7:3 0pm ACUTE HFREF EXACERBATION November 10 7:31pm ACUTE HFREF EXACERBATION November 11 7:41am ACUTE HFREF EXACERBATION November 11 6:21pm ACUTE HFREF EXACERBATION November 12 7:18am ACUTE HFREF EXACERBATION November 13 8:29am Reason for Visit Admit Date CHF (congestive heart failure) July 11:21am Type [...] with reduced ejection fraction) November 10, 2024 7:31pm Acute on chronic HFrEF (hear t failure with reduced ejection fraction) November 10, 2024 7:31pm Essential (primary) hypertension November 10, 2024 7:31pm Hyperlipidemia November 10, 2024 7:3 1pm Nicotine dependence November 10, 2024 7:3 1pm Stenosis of right carotid artery November 10, 2024 7:31pm H/O coronary artery bypass surgery [facility] 2024 7:31pm Chief Complaint Admit Date chest pain July 29, 2024 7:5 8pm [...] November 03, 2024 10:1 5am 3 M FU/[facility] ER FU November 04, 2024 1:3 6pm ACUTE LEG SWELLING FU November 10, 2024 1 0:05am Shortness of breath November 10, 2024 7:3 0pm ACUTE HFREF EXACERBATION November 10 7:31pm REPEAT CP November 10, 2024 8:2 2pm ACUTE HFREF EXACERBATION November 11 7:41am ACUTE HFREF EXACERBATION November 11 6:21pm ACUTE HFREF EXACERBATION November 12 7:18am ACUTE HFREF EXACERBATION November 13 8:29am 4 M FU November 16, 2024 9: 43am Chief Complaint Admit Date chest pain July 29, 2024 7:5 8pm [...] November 03, 2024 10:1 5am 3 M /[facility] ER November 04, 2024 1:3 6pm ACUTE LEG SWELLING November 10, 2024 1 0:05am Shortness of breath November 10, 2024 7:3 0pm ACUTE HFREF EXACERBATION November 10 7:31pm REPEAT CP November 10, 2024 8:2 2pm ACUTE HFREF EXACERBATION November 11 7:41am ACUTE HFREF EXACERBATION November 11 6:21pm ACUTE HFREF EXACERBATION November 12 7:18am ACUTE HFREF EXACERBATION November 13 8:29am 4 M FU November 16, 2024 9: 43am FAILURE TO THRIVE, SIRS CRITERIA November 22, 2024 1:04pm Reason for Visit Admit Date CHF (congestive heart failure) July 11:21am Type [...] with in sulin November 04, 2024 1:36pm 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 November 04, 2024 1:36pm Essential (primary) hypertension November 04, 2024 1:36pm Hyperlipidemia November 04, 2024 1:3 6pm Acute on chronic HFrEF (hear t failure with reduced ejection fraction) November 04, 2024 1:36pm Lymphorrhea November 10, 2024 10: 05am 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 November 10, 2024 10:05am Essential (primary) hypertension November 10, 2024 10:05am Acute on chronic HFrEF (hear t failure with reduced ejection fraction) November 10, 2024 10:05am Essential (primary) hypertension November 10, 2024 7:31pm Hyperlipidemia November 10, 2024 7:3 1pm Nicotine dependence November 10, 2024 7:3 1pm Stenosis of right carotid artery November 10, 2024 7:31pm Acute HFrEF (heart failure with reduced ejection fraction) November 10, 2024 7:31pm Acute on chronic HFrEF (hear t failure with reduced ejection fraction) November 10, 2024 7:31pm H/O coronary artery bypass surgery [facility] 2024 7:31pm Carotid artery disease November 16, 2024 9:43am Lower extremity edema November 16, 2024 9:43am PAD (peripheral artery disease) November 042024 9:43am Family History No Family History Records Found [...] MATERIAL Yamilka Parekh MD [address] [place] [address] [address] Imaging Referral ID Status Reason Start Date Expiration Date Visits Requested Visits Authorized [id number] Additional Clinical Info Needed Auto-Generat ed Referral 01/06/2022 02/05/2023 1 1 Specialty Diagnoses / Procedures Referred By Contac t Referred To Contact CT IMAGING Diagnoses Left groin pain Procedures CT PELVIS WO IVCON CT PELVIS W/O CONTRAST MATERIAL Yamilka Parekh MD [address] [place] [address] [place] [address] Referral ID Status Reason Start Date Expiration Date V isits Requested Visits Authorized [id number] Closed Auto-Generate d Referral 01/06/2022 03/16/2022 2 2 Summary Purpose Additional Source Comments Source Comments (unrecognize d section and content) In the event this informatio n is protected by the Federal Confidentiality of Alcohol and Drug Abuse Patient Records regulations: The Federal rules restrict any use of the information to criminally investigate or prosecute any alcohol or drug abuse patient.[facility] the event this information is protected by the Federal Confidentiality of Alcohol and Drug Abuse Patient Records regulations: The Federal rules restrict any use of the information to criminally investigate or prosecute any alcohol or drug abuse patient.[facility] the event this information is protected by the Federal Confidentiality of Alcohol and Drug Abuse Patient Records regulations: The Federal rules restrict any use of the information to criminally investigate or prosecute any alcohol or drug abuse patient.[facility] the event this information is protected by the Federal Confidentiality of Alcohol and Drug Abuse Patient Records regulations: The Federal rules restrict any use of the information to criminally investigate or prosecute any alcohol or drug abuse patient.[facility] the event this information is protected by the Federal Confidentiality of Alcohol and Drug Abuse Patient Records regulations: The Federal rules restrict any use of the information to criminally investigate or prosecute any alcohol or drug abuse patient.[facility] the event this information is protected by the Federal Confidentiality of Alcohol and Drug Abuse Patient Records regulations: The Federal rules restrict any use of the information to criminally investigate or prosecute any alcohol or drug abuse patient.[facility] the event this information is protected by the Federal Confidentiality of Alcohol and Drug Abuse Patient Records regulations: The Federal rules restrict any use of the information to criminally investigate or prosecute any alcohol or drug abuse patient.[facility] Reason for Visit (unrecogniz ed section [...] Yamilka Parekh MD [address] [place] [address] [place] [id number] Referral ID Status Reason Start Date Expiration Date V isits Requested Visits Authorized [id number] Closed Auto-Generate d Referral 01/06/2022 03/16/2022 2 [...] Care Teams (unrecognized sec tion and content) Long Lines Operator Relationship Specialty Start Date End Date Xiang Rogers, DO [address] [place] [address] PCP - General Family Medicine 01/03/22 Long Lines Operator Relationship Specialty Start Date End Date Xiang Rogers, DO [address] [place] [address] PCP - General Family Medicine 01/03/22 Long Lines Operator Relationship Specialty Start Date End Date Xiang Rogers, DO [address] [place] [address] PCP - General Family Medicine 01/03/22 Team [...] DO Primary Care Provider Active Kimberli Mora HOME SALES CONSULTANT, HOME SALES CONSULTANT-C Attending Provider, Referring Provider Active Team Status: [...] Provider, Referr ing Provider Active Dean Pena HOME SALES CONSULTANT, HOME SALES CONSULTANT-C Attending Provider Active Team Status: Inactive Member [...] DO Primary Care Provider Active Dean Pena HOME SALES CONSULTANT, HOME SALES CONSULTANT-C Attending Provider, Referring Pro vider Active Long Lines Operator Relationship Specialty Start Date End Date Xiang Rogers DO [address] [place] [address] PCP - General Family Medicine 01/03/22 Long Lines Operator Relationship Specialty Start Date End Date Xiang Rogers DO [address] [place] [address] PCP - General Family Medicine 01/03/22 Team [...] Provider, Referr ing Provider Active Kimberli Mora HOME SALES CONSULTANT, HOME SALES CONSULTANT-C Attending Provider Active Team Status: Inactive Member Role Status Dates Dr. Xiang Rogers DO Primary Care Provider Active Dr. Saúl Aguilar , DO Attending Provider, Emergency P roclary Active Long Lines Operator Relationship Specialty Start Date End Date Xiang Rogers DO [address] [place] [address] PCP - General Family Medicine 01/03/22 Team Status: Active Member Role Status Dates Dr. Xiang Rogers DO Primary Care Provider Active Team Status: Inactive Member Role Status Dates Dr. Xiang Rogers DO Primary Care Provider Active Start: February 24, 2024 End: February 24, 2024 Dr. Xiang Rogers DO Referring Provider Active Start: February 24, 2024 End: February 24, 2024 NILSON Hekc Attending Provider Active Star t: February 24, [...] May 09, 2024 End: May 09, 2024 NILSON Schaeffer Attending Provider Active Start: May 09, 2024 [...] 2024 End: June 20, 2024 Dean Pena HOME SALES CONSULTANT, HOME SALES CONSULTANT-C Other Provider Active Start : June 18, 2024 End: June 20, 2024 Magaly DEVINE PA Other Provider Active Start: June 18, [...] Provider Active Start: June 19, 2024 Dean Alli Jean HOME SALES CONSULTANT, HOME SALES CONSULTANT-C Other Provider Active Start : June 19, [...] St art: June 19, 2024 Dr. Merced uGerrier MD Other Provider Active Star t: June [...] Active Start: June 19, 2024 Dean Pena HOME SALES CONSULTANT, HOME SALES CONSULTANT-C Other Provider Active Start : June 19, [...] Active Start: June 20, 2024 Dean Pena HOME SALES CONSULTANT, HOME SALES CONSULTANT-C Other Provider Active Start : June 20, [...] Active Start: June 20, 2024 Dean Pena HOME SALES CONSULTANT, HOME SALES CONSULTANT-C Other Provider Active Start : June 20, [...] 2024 End: July 12, 2024 Ronit Galvez HOME SALES CONSULTANT, HOME SALES CONSULTANT-C Attending Provider Active Start: July 12, 2024 [...] Active Start: September 18, 2024 Dr. Saúl Schwiger , DO Emergency Provider Active Start: September 18, 2024 Dr. Clinton Soares , DO Admit Provider Active Start: September 18, 2024 Dr. Clinton Soares , DO Attending Provider Active Start: September 18, [...] 2024 End: July 12, 2024 Ronit Galvez NP, HOME SALES CONSULTANT-C Attending Provider Active Start: July 12, 2024 [...] September 20, 2024 Dr. Seth Carrington , Attending Provider Active Start: September 20, 2024 [...] , Other Provider Active S tart: September 21, [...] 03, 2024 End: November 03, 2024 Magaly DEVINE PA Attending Provider Active Start: November 03, [...] October 27, 2024 Dr. Bronson Tolentino , Emergency Provider Active Start: October 26, 2024 [...] November 10, 2024 End: November 10, 2024 BETO Dela CruzC Attending Provider Active Start: November 10, 2024 [...] Active Start: November 10, 2024 Team Status: Inactive Member Role/Relationship Status [...] Status: Inactive Member Role/Relationship Status Dates Dr. Xaing Rogers DO Primary Care Provider Active Start: [...] End: November 10, 2024 Dr. Xiang Rogers , DO Referring Provider Active Start: November 10, 2024 End: November 10, 2024 ADY Dela Cruz Attending Provider Active Start: November 10, 2024 End: November 10, 2024 Team Status: Active Member Role/Relationship Status Dates Dr. Xiang Rogers , DO Primary Care Provider Active Start: November 10, 2024 Dr. Bishop Monique DO Emergency Provider Activ e Start: November 10, 2024 Dr. Corazon Diaz MD Attending Provider Active Start: November 10, 2024 Team Status: Inactive Member Role/Relationship Status Dates Dr. Xiang Rogers , DO Primary Care Provider Active Start: November 10, 2024 End: November 13, 2024 Dr. Bishop Monique , DO Emergency Provider Activ e Start: November 10, 2024 End: November 13, 2024 Dr. Corazon Diaz MD Admit Provider Active St art: November 10, 2024 End: November 13, 2024 Dr. Corazon Diaz MD Other Provider Active St art: November 10, 2024 End: November 13, 2024 Dr. Steve Fields MD Attending Provider Active Start: November 10, 2024 End: November 13, 2024 Dr. Buck Trevino MD Other Provider Active Star t: November 10, 2024 End: November 13, 2024 Team Status: Active Member Role/Relationship Status Dates Dr. Xiang Rogers , DO Primary Care Provider Active Start: November 11, 2024 Dr. Bishop Monique DO Emergency Provider Activ e Start: November 11, 2024 Dr. Corazon Diaz MD Admit Provider Active St art: November 11, 2024 Dr. Corazon Diaz MD Other Provider Active St art: November 11, 2024 Dr. Steve Fields MD Attending Provider Active Start: November 11, 2024 Dr. Steve Fields MD Other Provider Active Star t: November 11, 2024 Team Status: Active Member Role/Relationship Status Dates Dr. Xiang Rogers , DO Primary Care Provider Active Start: November 11, 2024 Dr. Bishop Monique DO Emergency Provider Activ e Start: November 11, 2024 Dr. Corazon Diaz MD Admit Provider Active St art: November 11, 2024 Dr. Corazon Diaz MD Other Provider Active St art: November 11, 2024 Dr. Steve Fields MD Other Provider Active Star t: November 11, 2024 Dr. Buck Trevino MD Attending Provider Active Start: November 11, 2024 Dr. Buck Trevino MD Other Provider Active Star t: November 11, 2024 Team Status: Active Member Role/Relationship Status Dates Dr. Xiang Rogers DO Primary Care Provider Active Start: November 12, 2024 Dr. Bishop Monique , DO Emergency Provider Activ e Start: November 12, 2024 Dr. Corazon Diaz MD Admit Provider Active St art: November 12, 2024 Dr. Corazon Diaz MD Other Provider Active St art: November 12, 2024 Dr. Steve Fields MD Attending Provider Active Start: November 12, 2024 Dr. Steve Fields MD Other Provider Active Star t: November 12, 2024 Dr. Buck Trevino MD Other Provider Active Star t: November 12, 2024 Team Status: Active Member Role/Relationship Status Dates Dr. Xiang Rogers DO Primary Care Provider Active Start: November 13, 2024 Dr. Bishop Monique DO Emergency Provider Activ e Start: November 13, 2024 Dr. Corazon Diaz MD Admit Provider Active St art: November 13, 2024 Dr. Corazon Diaz MD Other Provider Active St art: November 13, 2024 Dr. Steve Fields MD Attending Provider Active Start: November 13, 2024 Dr. Steve Fields MD Other Provider Active Star t: November 13, 2024 Dr. Buck Trevino MD Other Provider Active Star t: November 13, 2024 Team Status: Active Member Role/Relationship Status Dates Dr. Xiang Rogers DO Primary Care Provider Active Start: November 10, 2024 Dr. Buck Trevino MD Attending Provider Active Start: November 10, 2024 Dr. Buck Trevino MD Referring Provider Active Start: November 10, 2024 Team Status: Active Member Role/Relationship Status Dates Dr. Xiang Rogers DO Primary Care Provider Active Start: November 11, 2024 Dr. Bishop Monique DO Emergency Provider Activ e Start: November 11, 2024 Dr. Corazon Diaz MD Admit Provider Active St art: November 11, 2024 Dr. Corazon Diaz MD Other Provider Active St art: November 11, 2024 Dr. Steve Fields MD Attending Provider Active Start: November 11, 2024 Dr. Steve Fields MD Other Provider Active Star t: November 11, 2024 Team Status: Active Member Role/Relationship Status Dates Dr. Xiang Rogers , DO Primary Care Provider Active Start: November 11, 2024 Dr. Bishop Monique , DO Emergency Provider Activ e Start: November 11, 2024 Dr. Corazon Diaz MD Admit Provider Active St art: November 11, 2024 Dr. Corazon Diaz MD Other Provider Active St art: November 11, 2024 Dr. Steve Fields MD Other Provider Active Star t: November 11, 2024 Dr. Buck Trevino MD Attending Provider Active Start: November 11, 2024 Dr. Buck Trevino MD Other Provider Active Star t: November 11, 2024 Team Status: Active Member Role/Relationship Status Dates Dr. Xiang Rogers , DO Primary Care Provider Active Start: November 12, 2024 Dr. Bishop Monique DO Emergency Provider Activ e Start: November 12, 2024 Dr. Corazon Diaz MD Admit Provider Active St art: November 12, 2024 Dr. Corazon Diaz MD Other Provider Active St art: November 12, 2024 Dr. Steve Fields MD Attending Provider Active Start: November 12, 2024 Dr. Steve Fields MD Other Provider Active Star t: November 12, 2024 Dr. Buck Trevino MD Other Provider Active Star t: November 12, 2024 Team Status: Active Member Role/Relationship Status Dates Dr. Xiang Rogers , DO Primary Care Provider Active Start: November 13, 2024 Dr. Bishop Monique DO Emergency Provider Activ e Start: November 13, 2024 Dr. Corazon Diaz MD Admit Provider Active St art: November 13, 2024 Dr. Corazon Diaz MD Other Provider Active St art: November 13, 2024 Dr. Steve Fields MD Attending Provider Active Start: November 13, 2024 Dr. Steve Fields MD Other Provider Active Star t: November 13, 2024 Dr. Buck Trevino MD Other Provider Active Star t: November 13, 2024 Team Status: Active Member Role/Relationship Status Dates Dr. Xiang Rogers DO Primary Care Provider Active Start: November 14, 2024 Dr. Xiang Rogers DO Attending Provider Active Start: November 14, 2024 Magaly DEVINE, PA Referring Provider Active Start: November 14, 2024 Team Status: Inactive Member Role/Relationship Status Dates Dr. Xiang Rogers DO Primary Care Provider Active Start: November 16, 2024 End: November 16, 2024 Dr. Xiang Rogers DO Referring Provider Active Start: November 16, 2024 End: November 16, 2024 NILSON Heck Attending Provider Active Star t: November 16, 2024 End: November 16, 2024 Team Status: Active Member Role/Relationship Status Dates Dr. Xiang Rogers DO Primary Care Provider Active Start: November 22, 2024 Dr. Devin Curry MD Emergency Provider Active S tart: November 22, 2024 Dr. Flori Johnson MD Admit Provider Active St art: November 22, 2024 Dr. Flori Johnson MD Attending Provider Active Start: November 22, 2024 (unrecognized sect ion and content) No Status Records FoundNo Status Records Found INFORMATION SOURCE (unrecogn ized section and content) DATE CREATED AUTHOR 02/05/[address] [facility] DATE CREATED AUTHOR AUTHOR'S ORGANIZ ATION 12/19/2024 [facility] FOR RECORDS PERTAINING TO PATIENTS WHO [...] BE BASED ON THE PRIMARY CLINICAL RECORDS. [employer] provides no warranty or guarantee of the accuracy or completeness of information in this document.
[2024-12-20 00:26] VITALS: PULSE 113; RESP 22
[2024-12-20] MEDS: Vancomycin HCl 750 MG in 0.9% Normal Saline (250mL Bag) 250 ML 250 MG IV (01:16)
[2024-12-20 02:45] VITALS: BP 146/95; PULSE 110; RESP 18; TEMP 36.4; O2SAT 99
--- NOTE | 2024-12-20 03:05 | NURSING ---
EMS here to get pt. Report called to [facility] and given to Matilda COHEN. Called daughter Christine and gave update, daughter appreciative and understanding.
--- NOTE | 2024-12-20 13:26 | PCM.DC.SUM ---
Providers Date of Admission: 12/19/24 Date of Discharge: 12/20/24 Primary Care Physician: Dr. Stefan Yusuf MD Consultations 12/19/24 15:16 Consult: Infectious Disease Routine Consulting Provider: Jeffery Del Valle Reason for Consult: left foot eschar and infection, pt has diabetes EMERGENT Consult: No MD Notified: Yes Date Notified: 12/19/24 Time Notified: 17:14 Method of Notification: Verbal Consult: Onc/Wound/patient insurance clerk Routine Comment: Reason for Consult:: left foot eschar and infection, pt has diabetes Consult: Podiatry Routine Consulting Provider: Gab Simons Reason for Consult: left foot eschar and infection, pt has diabetes, saw du last admit EMERGENT Consult: No MD Notified: Yes Date Notified: 12/19/24 Time Notified: 14:46 Method of Notification: Verbal Reason For Visit: CHF Diagnosis Discharge Diagnosis (1) PAD (peripheral artery disease): Status: Acute Code(s): I73.9 - Peripheral vascular disease, unspecified (2) Type 2 diabetes mellitus treated with insulin: Status: Acute Code(s): E11.9 - Type 2 diabetes mellitus without complications; Z79.4 - longterm (current) use of insulin (3) Atherosclerosis of [place] arteries of extremities with gangrene, left leg: Status: Inactive Code(s): I70.262 - Atherosclerosis of [place] arteries of extremities with gangrene, left leg (4) Cellulitis of left lower limb: Status: Acute Code(s): L03.116 - Cellulitis of left lower limb Plan # Left lower extremity cellulitis and wound #Acute exacerbation of chronic heart failure with reduced ejection fraction #PAD # Possible pneumonia # Elevated lactic acid # Chronic hypoxic respiratory failure secondary to COPD #Hx of CAD #Type 2 diabetes mellitus #GERD Medications at Discharge Home Medications blood sugar diagnostic (FreeStyle Test strips) #50 ea 04/02/21 blood-glucose meter (FreeStyle System Kit) #1 ea 04/02/21 lancets 28 gauge (FreeStyle Lancets) #50 ea 04/02/21 pen needle, diabetic 31 gauge x 3/16 (1st Tier Unifine Pentips Plus) #100 ea 04/02/21 Handicap placard #1 ea 07/22/23 pen needle, diabetic 31 gauge x 5/16 (Comfort EZ Pen [place]) #100 ea 10/28/23 evolocumab 140 mg/mL subcutaneous pen injector (Repatha SureClick) 140 mg subcut Q2W cholesterol #6 mL 05/09/24 insulin glargine 100 unit/mL (3 mL) subcutaneous pen (Lantus Solostar U-100 Insulin) 20 unit subcut .hs Diabetes 06/17/24 fluticasone propionate 50 mcg/actuation nasal spray,suspension (Flonase Allergy Relief) 2 spray intranasal DAILY PRN nasal congestion 09/18/24 nitroglycerin 0.4 mg sublingual tablet 0.4 mg sublingual Q5M PRN Cardiac/Chest Pain #25 tabs 09/27/24 aspirin 81 mg chewable tablet 81 mg PO BREAKFAST preventative #90 tabs 11/03/24 clopidogrel 75 mg tablet 75 mg PO DAILY antiplatelet #90 tabs 11/03/24 dapagliflozin propanediol 10 mg tablet (Farxiga) 10 mg PO DAILY diabetes #90 TABLETS 11/03/24 ezetimibe 10 mg tablet 10 mg PO DAILY cholesterol #90 tabs 11/03/24 albuterol sulfate 90 mcg/actuation aerosol inhaler 2 puff inhalation Q4H PRN shortness of breath or wheezing #6.7 grams 11/04/24 furosemide 40 mg tablet 40 mg PO BID diuretic 60 days #120 tabs 11/13/24 nicotine 21 mg/24 hr daily transdermal patch 1 patch transdermal DAILY #56 ea 11/13/24 levofloxacin 500 mg tablet 500 mg PO DAILY #10 tabs 12/08/24 midodrine 5 mg tablet 10 mg (2 x 5 mg) PO TIDCM low bp 30 days #180 tabs 12/08/24 Lactobacillus rhamnosus GG 10 billion cell capsule (Culturelle) 1 cap PO BID ATB THERAPY 12/19/24 acetaminophen 500 mg capsule 1,000 mg PO Q8H PRN pain 12/19/24 bisacodyl 10 mg rectal suppository (Laxative (bisacodyl)) 10 mg OR DAILY PRN constipation 12/19/24 fluticasone 100 mcg-salmeterol 50 mcg/dose blistr powdr for inhalation (Advair Diskus) 1 inh inhalation DAILY COPD 12/19/24 hydroxyzine pamoate 25 mg capsule (Vistaril) 25 mg PO Q8H PRN anxiety 12/19/24 magnesium hydroxide 400 mg/5 mL oral suspension (Gentle Laxative (magnesium hydroxide)) 30 ml PO DAILY PRN constipation 12/19/24 mineral oil (Fleet Mineral Oil enema) 118 ml OR DAILY PRN constipation 12/19/24 nystatin 100,000 unit/gram topical cream 1 applic topical DAILY PRN rash 12/19/24 pantoprazole 20 mg tablet,delayed release 20 mg PO DAILY GERD 12/19/24 potassium chloride 20 mEq tablet,extended release(part/cryst) (Klor-Con M) 40 meq PO DAILY SUPPLEMENT 12/19/24 sacubitril 24 mg-valsartan 26 mg tablet (Entresto) 1 tab PO BID heart 12/19/24 therapeutic multivitamin 1 tab PO DAILY 12/19/24 Hospital Course Summary of Care Provided Hospital Course: Per HPI: KANA MEJIA, is a 64-year-old male history of CHF, aortic valve stenosis, COPD, chronic hypoxic respiratory failure on 2 L nasal cannula at baseline, CAD with CABG, diabetes type 2, GERD presented [facility] ED 12/19/2024 for left lower extremity cellulitis and left foot wound and increased shortness of breath. [facility] [address] and was brought to the ED due to left lower extremity cellulitis. He is currently on Levaquin and initially was improving but now is worsening and has increased redness and pain. In the ED temp 97.9, heart rate 112, blood pressure 133/95, respiratory rate 16 pulse ox 100% on 2 L nasal cannula. CBC with white count 9.9, hemoglobin 13.9, ESR 39 with a CRP of 24.9. BNP 21,000, lactic acid 3.7, CMP with a BUN of 27 and a creatinine of 1.43, 2 weeks ago creatinine 1.29 chest x-ray with increased central vascularity and consolidation and infiltrate in right mid and lower lung with infiltrate in the left lower lung with an increased moderate right pleural effusion. Foot x-ray with dorsal soft tissue swelling. Patient given broad IV antibiotics, medicine for pain and also diagnosed with heart failure exacerbation and given IV Lasix. Hospitalist contacted for admission for his left lower extremity foot infection, pneumonia, and heart failure exacerbation. Patient evaluated bedside and is fairly poor historian. He reports that his left foot sometimes is worse and sometimes is better, mostly has pain on the dorsal portion around the culprit area, does report shortness of breath and has increased cough, said he is not yet producing sputum but thinks he will. Does have frequent jerking movements and said this is new over the past couple of weeks. He is unable to provide any additional history INTERVAL HISTORY: Pt evaluated by podiatry, Dr. Simons, who had seen him during his previous hospitalization. Given the worsening ulcer and now concomitant infection with peripheral disease he recommended transfer for vascular services with further evaluation and possible need for intervention given vascular surgery will not be available at our institution this week and there is concern that this needs addressed sooner than would be possible at our institution. Discussed with patient and patient's daughter regarding plan for transfer and reason why and they were agreeable. Called the general [facility] transfer line and requested transfer to one of the [facility] facilities available, specifically one with the capabilities to manage patient likely a [facility] or [facility] Main. Gerald with the transfer line reached out to [facility] who report they are on diversion and called back with the vascular doctor, Dr. Bailey, from [place], a different [facility] facility. He reviewed the case with me and was agreeable to see the patient but recommended patient be admitted under medical services given his multiple comorbidities and present medical complaints. Discussed the case with the medicine attending Dr. Sabillon who accepted patient for transfer to [facility]. Patient was transferred overnight to [facility] in stable condition Weight / BMI Weight Weight: 86.1 kg Body Mass Index (BMI) 26.4 ABG / Lab / Microbiology Data 12/19/24 10:20 12/19/24 11:50 Laboratory: Laboratory Results - last 24 hr 12/19/24 15:28: Lactic Acid 2.3 H* 12/19/24 16:59: POC Glucose 112 H 12/19/24 21:37: POC Glucose 148 H Microbiology: Microbiology 12/19/24 18:08 Wound - Left Foot Wound Culture - Preliminary No growth-Final to follow 12/19/24 23:00 Urine, Clean Catch Legionella Antigen - Final 12/19/24 23:00 Urine, Clean Catch Streptococcus pneumoniae Antigen (M - Final 12/19/24 16:05 Mucosa - Nasopharyngeal Respiratory Panel (PCR) - Final 12/19/24 11:05 Mucosa - Nose SARS-CoV-2, Influenza & RSV (PCR) - Final D/C Instructions DC O2, CPAP, BIPAP Needs Home O2 Discharge instructions: Yes Type of respiratory needs?: Oxygen (2L) Oxygen frequency: Continuous Continuous oxygen liters per minute: 2 DC home with Oxygen: Yes Home O2 MD Review: I have reviewed the oxygen testing, and the patient qualifies for home oxygen equipment and portability. The patient is mobile in the home and the community. Meaningful Use Info Meaningful Use Meaningful Use Diagnoses (Choose all that apply): CHF CHF NYDIA/ARB ordered at discharge?: No Reason NYDIA/ARB not ordered?: Worsening renal function Documented LVEF (%): 35 Discharge Plan Admission Admit Date/Time: 12/19/24 14:10 Attending Provider: Donna Wolff Primary Care Provider: Stefan Yusuf Consulting Providers: Gab Simons; Jeffery Del Valle Discharge Orders/Prescriptions Prescriptions: No Action (DME) Handicap placard See Rx Instructions .Route .MEDSUPPLY Qty: 1 0RF Rx Instructions: Due to COPD, unable to walk 50 yards without assistance, duration 5 years. (DME) pen needle, diabetic [Comfort EZ Pen [place]] 31 gauge x 5/16 needle See Rx Instructions .Route Qty: 100 3RF Rx Instructions: As directed nitroglycerin 0.4 mg tablet, sublingual 0.4 mg Sublingual Q5M PRN (Reason: Cardiac/Chest Pain) Qty: 25 1RF albuterol sulfate 90 mcg/actuation HFA aerosol inhaler 2 puff inhalation Q4H PRN (Reason: shortness of breath or wheezing) Qty: 6.7 1RF clopidogrel 75 mg tablet 75 mg PO DAILY Qty: 90 3RF ezetimibe 10 mg tablet 10 mg PO DAILY Qty: 90 3RF aspirin 81 mg tablet,chewable 81 mg PO BREAKFAST Qty: 90 3RF dapagliflozin propanediol [Farxiga] 10 mg tablet 10 mg PO DAILY Qty: 90 3RF fluticasone propionate [Flonase Allergy Relief] 50 mcg/actuation spray,suspension 2 spray intranasal DAILY PRN (Reason: nasal congestion) Rx Instructions: administer into each nostril furosemide 40 mg tablet 40 mg PO BID 60 Days Qty: 120 3RF nicotine 21 mg/24 hr patch 24 hour 1 patch transdermal DAILY Qty: 56 0RF midodrine 5 mg Tablet 10 mg PO TIDCM 30 Days Qty: 180 1RF levofloxacin 500 mg tablet 500 mg PO DAILY Qty: 10 0RF insulin glargine [Lantus Solostar U-100 Insulin] 100 unit/mL (3 mL) insulin pen 20 unit subcut .hs sacubitril-valsartan [Entresto] 24-26 mg tablet 1 tab PO BID bisacodyl [Laxative (bisacodyl)] 10 mg suppository 10 mg OR DAILY PRN (Reason: constipation) mineral oil [Fleet Mineral Oil] Enema 118 ml OR DAILY PRN (Reason: constipation) Rx Instructions: discard any unused portion Culturelle 10 billion cell capsule 1 cap PO BID fluticasone propion-salmeterol [Advair Diskus] 100-50 mcg/dose blister with device 1 inh inhalation DAILY magnesium hydroxide [Gentle Laxative (mag hydrox)] 400 mg/5 mL suspension 30 ml PO DAILY PRN (Reason: constipation) nystatin 100,000 unit/gram cream 1 applic topical DAILY PRN (Reason: rash) pantoprazole 20 mg tablet,delayed release (DR/EC) 20 mg PO DAILY potassium chloride [Klor-Con M20] 20 mEq tablet,ER particles/crystals 40 meq PO DAILY therapeutic multivitamin Tablet 1 tab PO DAILY acetaminophen 500 mg capsule 1,000 mg PO Q8H PRN (Reason: pain) hydroxyzine pamoate [Vistaril] 25 mg capsule 25 mg PO Q8H PRN (Reason: anxiety) (DME) FreeStyle Test Strip See Rx Instructions .ROUTE .MEDSUPPLY Qty: 50 11RF Rx Instructions: check blood glucose daily (DME) blood-glucose meter [FreeStyle System Kit] Kit See Rx Instructions .ROUTE .MEDSUPPLY Qty: 1 0RF Rx Instructions: check blood glucose daily for type 2 DM (DME) lancets [FreeStyle Lancets] 28 gauge misc See Rx Instructions .ROUTE .MEDSUPPLY Qty: 50 11RF Rx Instructions: Check blood glucose daily for type 2 DM (DME) pen needle, diabetic [1st Tier Unifine Pentips Plus] 31 gauge x 3/16 needle See Rx Instructions .ROUTE .MEDSUPPLY Qty: 100 1RF Rx Instructions: use with lantus nightly Repatha SureClick 140 mg/mL pen injector 140 mg subcut Q2W Qty: 6 3RF Referrals / Follow Up: Ant Nuñez DO [Med Staff - Energy Technician] - Stefan Yusuf MD [Primary Care Provider] - Disposition Disposition (needs filled in before D/C Order can be placed): [facility]
== END 2024-12-20 03:00 | disposition short-term general hospital (02) | DRG 299 ==
LOC: ED 11:44 → PCU 14:20
PROVIDERS: Admitting Provider Internal Medicine; Emergency Provider Surgery; PCP Family Medicine; Visit Provider Internal Medicine
DX: I70.262 Atherosclerosis of native arteries of extremities with gangrene, left leg (principal); J18.9 Pneumonia, unspecified organism; I50.23 Acute on chronic systolic (congestive) heart failure; J96.11 Chronic respiratory failure with hypoxia; L03.116 Cellulitis of left lower limb; J44.9 Chronic obstructive pulmonary disease, unspecified; E11.621 Type 2 diabetes mellitus with foot ulcer; I11.0 Hypertensive heart disease with heart failure; G25.3 Myoclonus; Z79.4 Long term (current) use of insulin; E78.00 Pure hypercholesterolemia, unspecified; K21.9 Gastro-esophageal reflux disease without esophagitis; I25.10 Atherosclerotic heart disease of native coronary artery without angina pectoris; I25.2 Old myocardial infarction; F41.9 Anxiety disorder, unspecified; Z87.891 Personal history of nicotine dependence; Z79.899 Other long term (current) drug therapy; Z79.84 Long term (current) use of oral hypoglycemic drugs; Z79.51 Long term (current) use of inhaled steroids; Z79.82 Long term (current) use of aspirin; Z79.02 Long term (current) use of antithrombotics/antiplatelets; Z86.73 Personal history of transient ischemic attack (TIA), and cerebral infarction without residual deficits; Z95.1 Presence of aortocoronary bypass graft; R74.02 Elevation of levels of lactic acid dehydrogenase [LDH]
CPT/HCPCS: 71046; 73630; 80053; 82962; 83605; 83880; 85025; 85610; 85652; 85730; 86140; 87040; 87070; 87075; 87077; 87186; 87205; 87449; 87631; 87633; 93005; 94640; 99285; J2185; A4216; J1938

== ENCOUNTER 2025-03-01 12:04 | Emergency (ER) | payer MEDICARE, MEDICAID, SELFPAY ==
[2025-03-01] VITALS (8 sets, daily range): BP systolic 89–118; BP diastolic 58–86; PULSE 90–99; RESP 16–18; TEMP 36.3; O2SAT 99–100; BMI 24.5
--- NOTE | 2025-03-01 12:24 | EX.ED.DYSGE1 ---
HPI History of Present Illness Chief Complaint: Abd Pain Detail of Chief Complaint: Abdominal pain Informant: patient Narrative Narrative: Patient presents to the emergency department via EMS from custodial for evaluation for abdominal pain and abdominal distention. Patient apparently was admitted to [facility] where he had a skin graft of his left foot and was discharged back to the custodial yesterday. long-term today concerned that he is having abdominal pain abdominal distention. On arrival to the emergency department patient denies abdominal pain. He denies vomiting. He has had some intermittent diarrhea. Patient denies chest pain or shortness of breath. [facility] Medical History History of CVA (cerebrovascular accident) Cardiac LV ejection fraction 30-35% GERD (gastroesophageal reflux disease) Anxiety High blood cholesterol Diabetes mellitus Emphysema, unspecified COPD (chronic obstructive pulmonary disease) Decreased left ventricular function Encounter for screening for malignant neoplasm of lung in current smoker with 30 pack year history or greater Stenosis of right carotid artery Insulin dependent diabetes mellitus History of non-ST elevation myocardial infarction (NSTEMI) (06/11/18) Emphysema lung Asthma Type 2 diabetes mellitus Arthritis Pancreatitis GERD (gastroesophageal reflux disease) Nicotine dependence Atherosclerosis of coronary artery of [place] heart without angina pectoris Hyperlipidemia Essential (primary) hypertension Home Medications ?Medication ?Instructions ?Recorded ?Last Taken ?Type blood sugar diagnostic (FreeStyle #50 ea 04/02/21 Unknown Rx Test strips) blood-glucose meter (FreeStyle #1 ea 04/02/21 Unknown Rx System Kit) lancets 28 gauge (FreeStyle #50 ea 04/02/21 Unknown Rx Lancets) pen needle, diabetic 31 gauge x #100 ea 04/02/21 Unknown Rx 3/16 (1st Tier Unifine Pentips Plus) Handicap placard #1 ea 07/22/23 Unknown Rx pen needle, diabetic 31 gauge x #100 ea 10/28/23 Unknown Rx 5/16 (Comfort EZ Pen [place]) evolocumab 140 mg/mL subcutaneous 140 mg subcut Q2W cholesterol #6 mL 05/09/24 09/12/24 Rx pen injector (Wolf Bernal) fluticasone propionate 50 2 spray intranasal DAILY PRN nasal 09/18/24 Unknown History mcg/actuation nasal congestion spray,suspension (Flonase Allergy Relief) nitroglycerin 0.4 mg sublingual 0.4 mg sublingual Q5M PRN 09/27/24 Unknown Rx tablet Cardiac/Chest Pain #25 tabs aspirin 81 mg chewable tablet 81 mg PO BREAKFAST preventative 11/03/24 Unknown Rx #90 tabs clopidogrel 75 mg tablet 75 mg PO DAILY antiplatelet #90 11/03/24 Unknown Rx tabs ezetimibe 10 mg tablet 10 mg PO DAILY cholesterol #90 tabs 11/03/24 Unknown Rx albuterol sulfate 90 mcg/actuation 2 puff inhalation Q4H PRN 11/04/24 Unknown Rx aerosol inhaler shortness of breath or wheezing #6.7 grams acetaminophen 500 mg capsule 500 mg PO Q6H PRN pain 12/19/24 Unknown History bisacodyl 10 mg rectal suppository 10 mg SC DAILY PRN constipation 12/19/24 Unknown History (Laxative (bisacodyl)) fluticasone 100 mcg-salmeterol 50 1 inh inhalation DAILY COPD 12/19/24 Unknown History mcg/dose blistr powdr for inhalation (Advair Diskus) hydroxyzine pamoate 25 mg capsule 25 mg PO Q8H PRN anxiety 12/19/24 Unknown History (Vistaril) magnesium hydroxide 400 mg/5 mL 30 ml PO DAILY PRN constipation 12/19/24 Unknown History oral suspension (Gentle Laxative (magnesium hydroxide)) mineral oil (Fleet Mineral Oil 118 ml SC DAILY PRN constipation 12/19/24 Unknown History enema) therapeutic multivitamin 1 tab PO DAILY 12/19/24 Unknown History daptomycin 500 mg intravenous 600 mg IV Q24H 03/01/25 02/28/25 History solution ertapenem 1 gram solution for 1 g IM DAILY 03/01/25 Unknown History injection insulin lispro 100 unit/mL See Protocol subcut DAILY 03/01/25 Unknown History subcutaneous pen (Humalog KwikPen (U-100) Insulin) lidocaine 4 % topical patch 1 patch topical BID PRN pain 03/01/25 Unknown History (Aspercreme (lidocaine)) metoprolol succinate 25 mg 25 mg PO DAILY HTN 03/01/25 Unknown History tablet,extended release 24 hr midodrine 5 mg tablet 5 mg PO TID low bp 03/01/25 Unknown History pantoprazole 40 mg tablet,delayed 40 mg PO DAILY GERD 03/01/25 Unknown History release (Protonix) polyethylene glycol 3350 17 17 g PO DAILY constipation 03/01/25 Unknown History gram/dose oral powder (Miralax) sennosides 8.6 mg capsule (senna) 8.6 mg PO BID 03/01/25 Unknown History sodium chloride 0.9 % (flush) 10 ml IV BID 03/01/25 Unknown History (Normal Saline Flush 0.9 % injection syringe) tamsulosin 0.4 mg capsule (Flomax) 0.4 mg PO DAILY BPH 03/01/25 Unknown History thiamine HCl (vitamin B1) 100 mg 100 mg PO DAILY 03/01/25 Unknown History tablet (Vitamin B-1) torsemide 40 mg tablet 40 mg PO DAILY 03/01/25 Unknown History trazodone 50 mg tablet 25 mg PO QHS insomnia 03/01/25 Unknown History Allergy/AdvReac Type Severity Reaction Status Date / Time amoxicillin Allergy Angioedema Verified 03/01/25 12:14 lindane Allergy Rash Verified 03/01/25 12:14 Family History Father Asthma Alcoholism Arthritis Heart disease Hypertension High cholesterol CVA (cerebral vascular accident) Lung cancer Grandfather Myocardial infarction Surgical History S/P CABG x 4 History of hernia repair History of carotid endarterectomy (01/06/14) H/O coronary artery bypass surgery (2006) History of left heart catheterization (06/11/18) Social History household members: none housing: custodial Smoking Status: Former smoker Tobacco: How many years used: 45 Electronic Cigarette Use: not used second hand exposure: Yes quit status: considering quitting alcohol intake: never substance use type: does not use caffeine: Yes Type: coffee Number of servings: 5 what type of physical activity do you participate in: none ROS ROS ED Review of Systems ROS Unobtainable: other Constitutional Constitutional ED: Reports lethargy; Denies chills, fever(s), sweats or weight loss Eyes Eyes: Denies blurry vision, change in vision or diplopia ENT ENT ED: Denies rhinorrhea or sore throat Cardiovascular Cardiovascular: Denies chest pain, orthopnea or racing heartbeat Respiratory/Chest Respiratory/Chest: Reports dyspnea and dyspnea on exertion; Denies cough, orthopnea or sputum Gastrointestinal Gastrointestinal: Reports abdominal pain; Denies diarrhea, nausea or vomiting Genitourinary Genitourinary ED: Denies dysuria, hematuria or urinary frequency Musculoskeletal Musculoskeletal: Denies arthralgias, back pain, myalgias or neck pain Integumentary Denies abscess, Abrasions or rash Neurologic Neurologic: Denies headache(s) or weakness Psychiatric Psychiatric: Denies anxiety, depression or suicidal thoughts Endocrine Endocrinology: Denies polydipsia, polyphagia or polyuria Hematologic/Lymphatic Hematologic/Lymphatic: Denies easy bleeding, easy bruising or lymphadenopathy Allergic/Immunologic Allergic/Immunologic ED: Denies mouth swelling, tongue swelling or urticaria EXAM Physical Exam Const Vital Signs: 03/01/25 12:06 03/01/25 12:24 03/01/25 13:14 Temperature 97.3 F L 97.3 F L 97.3 F L Temperature Source Axillary Oral Axillary Pulse Rate 94 99 97 Respiratory Rate 18 18 18 Blood Pressure 89/58 L 95/75 93/58 L Blood Pressure Mean 68 81 69 Pulse Ox 99 100 100 Oxygen Delivery Method Nasal Cannula Nasal Cannula Nasal Cannula Oxygen Flow Rate (L/min) 2 2 2 03/01/25 14:05 Temperature Temperature Source Pulse Rate 93 Respiratory Rate Blood Pressure 109/71 Blood Pressure Mean 83 Pulse Ox 99 Oxygen Delivery Method Nasal Cannula Oxygen Flow Rate (L/min) 2 Positive well nourished and well developed General Appearance ED: well developed and NAD HEENT Reports TM's clear and moist mucous membranes normocephalic and atraumatic; Negative for trauma or tenderness Tympanic Membrane ED: Yes TM's clear Eyes PERRL and EOMs intact bilaterally General Eye ED: Negative for pale conjunctiva or scleral icterus Neck no lymphadenopathy, supple and no JVD General: Negative for tenderness Chest Wall inspection of chest normal and palpation of chest normal Chest: Negative for tenderness Resp normal respiratory effort and clear to auscultation bilaterally Effort and Inspection: Negative for respiratory distress or pain with movement Auscultation: Negative for rhonchi, wheezes or diminished lung sounds Cardio regular rate, regular rhythm, S1 normal heart sound, S2 normal heart sound and no murmurs Peripheral Pulses: pulses 2+ throughout GI normal to inspection, nondistended, normoactive bowel sounds, soft to palpation, non-distended and no masses GI Narrative: Very mild diffuse tenderness. Some mild distention. There is no rebound, rigidity, or peritoneal signs. No mass palpated. Back/Spine no CVA tenderness and no thoracic nor lumbar tenderness Extremity normal to inspection General Extremety ED: Negative for edema General Extremity: Negative for edema Neuro oriented x3, CN's II-XII intact bilaterally, no sensory deficits noted and gait normal Sensorium / Orientation: awake, alert, oriented to person, oriented to place and oriented to time Motor Exam: strength 5/5 throughout and strength abnormal Psych mental status grossly normal Skin no wounds Skin Narrative: Left foot-patient presented with a dressing on his left foot. I did take down the dressing and noted that he has what looks like recent skin grafting to the dorsum of the foot with exposed tendon underneath. No significant cellulitic changes at this time. He is neurovascularly intact distally MDM MDM MDM Narrative Medical decision making narrative: Patient sent from custodial for complaint of abdominal pain and abdominal distention. Patient is ANO x 3 and denies any abdominal pain. He had recent skin grafting to his left foot at [facility] yesterday. IV line established. CBC with differential obtained showed a white count of 8.6 with hemoglobin 11.6 and platelet count of 285. Chemistries unremarkable. BUN was 46 and creatinine 1.78. Glucose 150. LFTs essentially unremarkable his alk phos was mildly elevated 175. CT scan of the abdomen pelvis with IV contrast showed large right and moderate left pleural effusions with atelectasis. Patient had hepatic cirrhosis and diffuse hepatic steatosis. Small volume ascites throughout the abdomen. These findings are chronic. 1 view chest x-ray obtained showed bilateral pleural effusions. At this point patient will be discharged back to the custodial. Clinically he looks well. He is not septic. Lab Data Attestation: I reviewed the patient's lab results. Labs: Laboratory Results - last 24 hr 03/01/25 12:28 WBC 8.6 RBC 3.80 L Hgb 11.6 L Hct 36.9 L MCV 97.1 H MCH 30.5 MCHC 31.4 L RDW Std Deviation 69.8 H RDW Coeff of Maycol 19.9 H Plt Count 285 MPV 9.1 Immature Gran % (Auto) 0.200 Neut % (Auto) 67.9 Lymph % (Auto) 18.6 L [place] % (Auto) 8.0 Eos % (Auto) 4.9 Baso % (Auto) 0.4 Absolute Neuts (auto) 5.8 Absolute Lymphs (auto) 1.59 Nucleated RBC % 0 Anisocytosis 1+ Sodium 142 Potassium 3.7 Chloride 107 Carbon Dioxide 21.2 Anion Gap 14 BUN 46 H Creatinine 1.78 H Estim Creat Clear Calc 44.07 L Est GFR (MDRD) Non-Af 42 L BUN/Creatinine Ratio 26.0 H Glucose 150 H Lactic Acid 1.2 Calcium 9.2 Total Bilirubin 0.61 AST 36 ALT 13 Alkaline Phosphatase 175 H Total Protein 7.1 Albumin 3.7 Globulin 3.4 Albumin/Globulin Ratio 1.1 Radiography Diagnostic Testing: Clinical Impression(s) from Imaging Studies Chest X-Ray 03/01/25 12:35 IMPRESSION: Moderate pleural effusion with atelectasis or airspace disease right lower lung. Reading Location: [facility] Abdomen/Pelvis CT 03/01/25 13:15 IMPRESSION: 1. Large right and moderate left pleural effusions with atelectasis. 2. Hepatic cirrhosis and diffuse hepatic steatosis. 3. Small volume ascites throughout the abdomen and pelvis. 4. Stable 2.8 cm right common iliac artery aneurysm. Reading Location: [facility] Discharge Plan Triage Chief Complaint: Abd Pain ED Provider: Severo Zeng Dx/Rx/DC Orders Clinical Impression: Abdominal pain Instructions: ED Abdominal Pain Unkn Cause Male... Prescriptions: No Action (DME) Handicap placard See Rx Instructions .Route .MEDSUPPLY Qty: 1 0RF Rx Instructions: Due to COPD, unable to walk 50 yards without assistance, duration 5 years. (DME) pen needle, diabetic [Comfort EZ Pen [place]] 31 gauge x 5/16 needle See Rx Instructions .Route Qty: 100 3RF Rx Instructions: As directed nitroglycerin 0.4 mg tablet, sublingual 0.4 mg Sublingual Q5M PRN (Reason: Cardiac/Chest Pain) Qty: 25 1RF albuterol sulfate 90 mcg/actuation HFA aerosol inhaler 2 puff inhalation Q4H PRN (Reason: shortness of breath or wheezing) Qty: 6.7 1RF clopidogrel 75 mg tablet 75 mg PO DAILY Qty: 90 3RF ezetimibe 10 mg tablet 10 mg PO DAILY Qty: 90 3RF aspirin 81 mg tablet,chewable 81 mg PO BREAKFAST Qty: 90 3RF fluticasone propionate [Flonase Allergy Relief] 50 mcg/actuation spray,suspension 2 spray intranasal DAILY PRN (Reason: nasal congestion) Rx Instructions: administer into each nostril bisacodyl [Laxative (bisacodyl)] 10 mg suppository 10 mg SC DAILY PRN (Reason: constipation) mineral oil [Fleet Mineral Oil] Enema 118 ml SC DAILY PRN (Reason: constipation) Rx Instructions: discard any unused portion fluticasone propion-salmeterol [Advair Diskus] 100-50 mcg/dose blister with device 1 inh inhalation DAILY magnesium hydroxide [Gentle Laxative (mag hydrox)] 400 mg/5 mL suspension 30 ml PO DAILY PRN (Reason: constipation) therapeutic multivitamin Tablet 1 tab PO DAILY acetaminophen 500 mg capsule 500 mg PO Q6H PRN (Reason: pain) hydroxyzine pamoate [Vistaril] 25 mg capsule 25 mg PO Q8H PRN (Reason: anxiety) daptomycin 500 mg recon soln 600 mg IV Q24H Rx Instructions: qhs for wound, start 02/28/25 ertapenem 1 gram recon soln 1 g IM DAILY Rx Instructions: use 100 ml iv qam for wound, start 02/28/25 insulin lispro [Humalog KwikPen Insulin] 100 unit/mL insulin pen See Protocol subcut DAILY Protocol: 6. Sliding Scale Insulin Custom Condition: 150-199 Dose/Route: 1 Instruction: ac and HS Condition: 200-249 Dose/Route: 2 Condition: 250-299 Dose/Route: 3 Condition: 300-349 Dose/Route: 4 Condition: 350-399 Dose/Route: 5 Condition: > 400 Dose/Route: contact MD Protocol Text: Custom Sliding Scale lidocaine [Aspercreme (lidocaine)] 4 % adhesive patch,medicated 1 patch topical BID PRN (Reason: pain) Rx Instructions: apply to dent sodium chloride 0.9 % (flush) [Normal Saline Flush] Syringe 10 ml IV BID Rx Instructions: maintain patency use 10 ml iv bid for flush pantoprazole [Protonix] 40 mg tablet,delayed release (DR/EC) 40 mg PO DAILY polyethylene glycol 3350 [Miralax] 17 gram/dose powder 17 g PO DAILY senna 8.6 mg capsule 8.6 mg PO BID tamsulosin [Flomax] 0.4 mg capsule 0.4 mg PO DAILY thiamine HCl (vitamin B1) [Vitamin B-1] 100 mg tablet 100 mg PO DAILY metoprolol succinate 25 mg tablet extended release 24 hr 25 mg PO DAILY torsemide 40 mg tablet 40 mg PO DAILY trazodone 50 mg tablet 25 mg PO QHS midodrine 5 mg Tablet 5 mg PO TID (DME) FreeStyle Test Strip See Rx Instructions .ROUTE .MEDSUPPLY Qty: 50 11RF Rx Instructions: check blood glucose daily (DME) blood-glucose meter [FreeStyle System Kit] Kit See Rx Instructions .ROUTE .MEDSUPPLY Qty: 1 0RF Rx Instructions: check blood glucose daily for type 2 DM (DME) lancets [FreeStyle Lancets] 28 gauge misc See Rx Instructions .ROUTE .MEDSUPPLY Qty: 50 11RF Rx Instructions: Check blood glucose daily for type 2 DM (DME) pen needle, diabetic [1st Tier Unifine Pentips Plus] 31 gauge x 3/16 needle See Rx Instructions .ROUTE .MEDSUPPLY Qty: 100 1RF Rx Instructions: use with lantus nightly Repatha SureClick 140 mg/mL pen injector 140 mg subcut Q2W Qty: 6 3RF Primary Care Provider: Stefan Yusuf Referrals: Stefan Yusuf MD [Primary Care Provider, Family Practice] Print Language: Egyptian Disposition Disposition: [facility]
--- NOTE | 2025-03-01 12:35 | RAD_ITS ---
PROCEDURE: CHEST 1 VIEW (PORTABLE) 03/01/2025 REASON FOR EXAM: COUGH TECHNIQUE: Frontal view of the chest. COMPARISON: December 19, 2024 FINDINGS: Hardware: Right internal jugular line is in place with its tip overlying the superior vena cava. Heart: Mildly enlarged status post median sternotomy Lungs: Moderate pleural effusion on the right with atelectasis or airspace disease in the right middle and right lower lobe. Scant pleural fluid left lung base. Bones: Degenerative changes are identified within the thoracic spine. RAD/Chest 1 View (Portable) IMPRESSION: Moderate pleural effusion with atelectasis or airspace disease right lower lung . Reading Location: [id number]
--- NOTE | 2025-03-01 12:35 | ED.RN ---
Pt has central line in place on [facility]. Per RN at the [facility]- central line ok to use.
[2025-03-01 12:38] LABS: Hematocrit 36.9 % (40-54); Hemoglobin 11.6 g/dL (13.0-16.5); Immature Granulocytes Count 0.020 X10^3/uL (0.0-0.0); Mean Corp Hgb Conc 31.4 g/dL (32-36); Mean Corpuscular Volume 97.1 fL (80-94); Mean Platelet Vol. 9.1 fl (6.2-12.0); NRBC Flagged by Analyzer 0 % (0-5); POSITIVE MORPHOLOGY YES; Platelet Count 285 K/mm3 (150-450); RBC Distribution Width CV 19.9 % (11.6-14.6); RBC Distribution Width SD 69.8 fl (35.1-43.9); Red Blood Count 3.80 M/mm3 (4.6-6.2); White Blood Count 8.6 K/mm3 (4.4-11.0)
[2025-03-01 12:39] LABS: Differential Indicated SCAN CRITERIA MET
[2025-03-01] MEDS: 0.9% Normal Saline (1000mL) 1,000 ML 150 ML IV (12:44)
[2025-03-01 12:59] LABS: AST(SGOT) 36 U/L (<=37); Alanine Aminotransfer ALT/SGPT 13 U/L (<=46); Albumin, Serum 3.7 g/dL (3.4-4.8); Alkaline Phosphatase 175 U/L (40-129); Anion Gap 14 (5-15); BUN 46 mg/dL (4-19); BUN/Creat Ratio 26.0 RATIO (10-20); Calcium,Total 9.2 mg/dL (7.6-11.0); Carbon Dioxide 21.2 mmol/L (21.0-32.0); Chloride 107 mmol/L (98-108); Estimated Creatinine Clearance 44.07 ml/min (50-250); Globulin 3.4 g/dL (2.2-4.2); Glucose 150 mg/dL (70-99); Potassium 3.7 mmol/L (3.3-5.1)
[2025-03-01 13:01] LABS: Anisocytosis 1+
--- NOTE | 2025-03-01 13:15 | CT_ITS ---
PROCEDURE: ABDOMEN/PELVIS W IV CONT ONLY 03/01/2025 REASON FOR EXAM: ABDOMINAL PAIN TECHNIQUE: Procedure Code: [id number] Modality: CT Procedure: ABDOMEN/PELVIS W IV CONT ONLY Coronal and Sagittal reconstruction series were provided. CONTRAST: 100 cc of Isovue 370 One or more dose reduction techniques were used (e.g., Automated exposure control, adjustment of the mA and/or kV according to patient size, use of iterative reconstruction technique. COMPARISON: CT abdomen pelvis 11/22/2024 FINDINGS: Lung bases: Large right and moderate left pleural effusions with adjacent passive atelectasis. Liver: Nodular hepatic contour suggestive of cirrhosis. Diffuse hepatic steatosis. No obvious hepatic mass. Gallbladder: Unremarkable. No biliary ductal dilatation. Spleen: Normal size. Pancreas: Normal size without evidence of mass surrounding inflammation or ductal dilation. Adrenals: Unremarkable. Kidneys: Normal renal sizes. No hydronephrosis. Bladder: Unremarkable. Reproductive Organs: Prostate not enlarged. No pelvic masses. Bowel: No bowel obstruction. No inflammatory changes. Appendix: Normal Lymph nodes: Unremarkable. Vasculature: Advanced calcified and noncalcified plaque formation. Redemonstrated right common iliac artery aneurysm measuring 2.8 cm. Peritoneum / Retroperitoneum: Small volume free fluid in the abdomen and pelvis. Bones: Degenerative changes of the spine. No acute fractures. CT/Abdomen/Pelvis W IV Cont ONLY IMPRESSION: 1. Large right and moderate left pleural effusions with atelectasis. 2. Hepatic cirrhosis and diffuse hepatic steatosis. 3. Small volume ascites throughout the abdomen and pelvis. 4. Stable 2.8 cm right common iliac artery aneurysm. Reading Location: [facility]
--- NOTE | 2025-03-01 15:55 | ED.RN ---
Report given to Sivan COHEN at the [facility]
--- NOTE | 2025-03-01 16:20 | ED.RN ---
This RN and pt's assigned RN were cleaning pt up and changing his linens and brief d/t urine saturation. This RN attempted to remove sheets under pt's feet and pt yelled don't you fucking grab my foot like that again! This RN stated she did not grab his foot as it is very obviously injured with jerman but it likely got some pressure from the sheets underneath. Pt states do it again and I'll clock you in the face! This RN educated pt on how inappropriate it is to threaten anyone that way and that his behavior is not acceptable. Pt educated that the need to clean him up requires him moving around and helping with his legs and feet to decrease the risk of pain to his foot and that it is entirely by accident and it is not our intent to cause pain.
== END 2025-03-01 21:25 | disposition skilled nursing facility (03) ==
PROVIDERS: Emergency Provider Emergency Medicine; PCP Family Medicine; Visit Provider Emergency Medicine
DX: R10.9 Unspecified abdominal pain (principal); J44.9 Chronic obstructive pulmonary disease, unspecified; E11.9 Type 2 diabetes mellitus without complications; Z79.4 Long term (current) use of insulin; E78.00 Pure hypercholesterolemia, unspecified; Z87.891 Personal history of nicotine dependence; I10 Essential (primary) hypertension; I25.10 Atherosclerotic heart disease of native coronary artery without angina pectoris; R14.0 Abdominal distension (gaseous); Z86.73 Personal history of transient ischemic attack (TIA), and cerebral infarction without residual deficits; Z85.118 Personal history of other malignant neoplasm of bronchus and lung; I25.2 Old myocardial infarction; Z79.82 Long term (current) use of aspirin; Z79.02 Long term (current) use of antithrombotics/antiplatelets; K21.9 Gastro-esophageal reflux disease without esophagitis; F41.9 Anxiety disorder, unspecified; Z79.51 Long term (current) use of inhaled steroids; Z79.899 Other long term (current) drug therapy; Z95.1 Presence of aortocoronary bypass graft
CPT/HCPCS: 71045; 74177; 80053; 83605; 85025; 96360; 96361; 99285; Q9967; A4216

== ENCOUNTER 2025-03-09 10:31 | Emergency (ER) | payer MEDICARE, MEDICAID, SELFPAY ==
[2025-03-09] VITALS (25 sets, daily range): BP systolic 85–118; BP diastolic 54–87; PULSE 91–98; RESP 13–18; TEMP 36.4–36.6; O2SAT 56–100; BMI 25.0
--- NOTE | 2025-03-09 10:47 | EKG12_ITS ---
Test Reason : Blood Pressure : */* mmHG Vent. Rate : 88 BPM Atrial Rate : 88 BPM P-R Int : 146 ms QRS Dur : 92 ms QT Int : 402 ms P-R-T Axes : 46 4 129 degrees QTcB Int : 486 ms Normal sinus rhythm Nonspecific ST and T wave abnormality Prolonged QT Abnormal ECG Confirmed by JULIO CÉSAR BEDOYA MD ([id number]), news video editor SAY DESAI ([id number]) on 03/10/2025 9:15:14 AM Referred By: Confirmed By: JULIO CÉSAR BEDOYA MD
--- NOTE | 2025-03-09 10:47 | CT_ITS ---
PROCEDURE: BRAIN/HEAD WITHOUT CONTRAST N/A REASON FOR EXAM: ALOC TECHNIQUE: Procedure Code: CTBR Modality: CT Procedure: BRAIN/HEAD WITHOUT CONTRAST Coronal and Sagittal reconstruction series were provided. One or more dose reduction techniques were used (e.g., Automated exposure control, adjustment of the mA and/or kV according to patient size, use of iterative reconstruction technique. RADIATION DOSE SUMMARY: CTDlvol: 47.06 mGy DLP: 925.62 mGycm COMPARISON: None. FINDINGS: Brain: No acute territorial infarction. No acute intracranial hemorrhage. No mass-effect or midline shift. Diffuse white matter hypodensities which are nonspecific but likely due to chronic small-vessel ischemia. Parenchymal volume loss consistent with brain atrophy. No ventriculomegaly. The orbits are unremarkable. The craniocervical junction is unremarkable. CSF Spaces: Moderate generalized cerebral atrophy Sinuses/Mastoids: Clear at visualized levels Bones: No acute bony abnormalities. CT/Brain/Head without Contrast IMPRESSION: No acute intracranial abnormalities. Reading Location: [id number]
--- NOTE | 2025-03-09 10:49 | EX.ED.DYSGE1 ---
HPI History of Present Illness Chief Complaint: Alt LOC Informant: patient and SNF (Spoke to one of his nurses at the [facility].) Onset/Context/Timing Onset: Days Context: Gradual Onset Timing: Continuous Current Severity: Moderate Maximum Severity: Moderate Narrative Narrative: 65-year-old male history of diabetes, stroke, CHF, CABG, bilateral pleural effusions and cirrhosis. Recent hospitalization at the [facility] [place] in [place], [place] for infection of his left foot with skin grafting. Currently is on antibiotics for that. According the nurse at the [facility] recently is been confused and having hallucinations. He seemed to be mumbling more today. So they sent him in for evaluation. They denied any vomiting. No fever. His blood pressure typically runs 90-100 that has been his baseline. Recent Illness/Hospitalization: Yes [facility] Medical History Type 2 diabetes mellitus with foot ulcer Atherosclerosis of [place] arteries of extremities with gangrene, left leg Bacteremia due to Gram-negative bacteria Severe sepsis History of diabetes mellitus Lower extremity edema History of CVA (cerebrovascular accident) Cardiac LV ejection fraction 30-35% GERD (gastroesophageal reflux disease) Anxiety High blood cholesterol Diabetes mellitus Emphysema, unspecified COPD (chronic obstructive pulmonary disease) Decreased left ventricular function Encounter for screening for malignant neoplasm of lung in current smoker with 30 pack year history or greater Stenosis of right carotid artery Insulin dependent diabetes mellitus History of non-ST elevation myocardial infarction (NSTEMI) (06/11/18) Emphysema lung Asthma Type 2 diabetes mellitus Arthritis Pancreatitis GERD (gastroesophageal reflux disease) Nicotine dependence Atherosclerosis of coronary artery of [place] heart without angina pectoris Hyperlipidemia Essential (primary) hypertension Home Medications ?Medication ?Instructions ?Recorded ?Last Taken ?Type blood sugar diagnostic (FreeStyle #50 ea 04/02/21 Unknown Rx Test strips) blood-glucose meter (FreeStyle #1 ea 04/02/21 Unknown Rx System Kit) lancets 28 gauge (FreeStyle #50 ea 04/02/21 Unknown Rx Lancets) pen needle, diabetic 31 gauge x #100 ea 04/02/21 Unknown Rx 3/16 (1st Tier Unifine Pentips Plus) Handicap placard #1 ea 07/22/23 Unknown Rx pen needle, diabetic 31 gauge x #100 ea 10/28/23 Unknown Rx 5/16 (Comfort EZ Pen Brewster) evolocumab 140 mg/mL subcutaneous 140 mg subcut Q2W cholesterol #6 mL 05/09/24 09/12/24 Rx pen injector (Wolf Bernal) fluticasone propionate 50 2 spray intranasal DAILY PRN nasal 09/18/24 Unknown History mcg/actuation nasal congestion spray,suspension (Flonase Allergy Relief) nitroglycerin 0.4 mg sublingual 0.4 mg sublingual Q5M PRN 09/27/24 Unknown Rx tablet Cardiac/Chest Pain #25 tabs aspirin 81 mg chewable tablet 81 mg PO BREAKFAST preventative 11/03/24 Unknown Rx #90 tabs clopidogrel 75 mg tablet 75 mg PO DAILY antiplatelet #90 11/03/24 Unknown Rx tabs ezetimibe 10 mg tablet 10 mg PO DAILY cholesterol #90 tabs 11/03/24 Unknown Rx albuterol sulfate 90 mcg/actuation 2 puff inhalation Q4H PRN 11/04/24 Unknown Rx aerosol inhaler shortness of breath or wheezing #6.7 grams acetaminophen 500 mg capsule 500 mg PO Q6H PRN pain 12/19/24 Unknown History bisacodyl 10 mg rectal suppository 10 mg ME DAILY PRN constipation 12/19/24 Unknown History (Laxative (bisacodyl)) fluticasone 100 mcg-salmeterol 50 1 inh inhalation DAILY COPD 12/19/24 Unknown History mcg/dose blistr powdr for inhalation (Advair Diskus) hydroxyzine pamoate 25 mg capsule 25 mg PO Q8H PRN anxiety 12/19/24 Unknown History (Vistaril) magnesium hydroxide 400 mg/5 mL 30 ml PO DAILY PRN constipation 12/19/24 Unknown History oral suspension (Gentle Laxative (magnesium hydroxide)) mineral oil (Fleet Mineral Oil 118 ml ME DAILY PRN constipation 12/19/24 Unknown History enema) therapeutic multivitamin 1 tab PO DAILY 12/19/24 Unknown History daptomycin 500 mg intravenous 600 mg IV Q24H 03/01/25 02/28/25 History solution ertapenem 1 gram solution for 1 g IM DAILY 03/01/25 Unknown History injection insulin lispro 100 unit/mL See Protocol subcut DAILY 03/01/25 Unknown History subcutaneous pen (Humalog KwikPen (U-100) Insulin) lidocaine 4 % topical patch 1 patch topical BID PRN pain 03/01/25 Unknown History (Aspercreme (lidocaine)) metoprolol succinate 25 mg 25 mg PO DAILY HTN 03/01/25 Unknown History tablet,extended release 24 hr midodrine 5 mg tablet 5 mg PO TID low bp 03/01/25 Unknown History pantoprazole 40 mg tablet,delayed 40 mg PO DAILY GERD 03/01/25 Unknown History release (Protonix) polyethylene glycol 3350 17 17 g PO DAILY constipation 03/01/25 Unknown History gram/dose oral powder (Miralax) sennosides 8.6 mg capsule (senna) 8.6 mg PO BID 03/01/25 Unknown History sodium chloride 0.9 % (flush) 10 ml IV BID 03/01/25 Unknown History (Normal Saline Flush 0.9 % injection syringe) tamsulosin 0.4 mg capsule (Flomax) 0.4 mg PO DAILY BPH 03/01/25 Unknown History thiamine HCl (vitamin B1) 100 mg 100 mg PO DAILY 03/01/25 Unknown History tablet (Vitamin B-1) torsemide 40 mg tablet 40 mg PO DAILY 03/01/25 Unknown History trazodone 50 mg tablet 25 mg PO QHS insomnia 03/01/25 Unknown History Allergy/AdvReac Type Severity Reaction Status Date / Time amoxicillin Allergy Angioedema Verified 03/09/25 10:37 lindane Allergy Rash Verified 03/09/25 10:37 Family History Father Asthma Alcoholism Arthritis Heart disease Hypertension High cholesterol CVA (cerebral vascular accident) Lung cancer Grandfather Myocardial infarction Surgical History S/P CABG x 4 History of hernia repair History of carotid endarterectomy (01/06/14) H/O coronary artery bypass surgery (2006) History of left heart catheterization (06/11/18) Social History household members: none housing: [facility] Smoking Status: Former smoker Tobacco: How many years used: 45 Electronic Cigarette Use: not used second hand exposure: Yes quit status: considering quitting alcohol intake: never substance use type: does not use caffeine: Yes Type: coffee Number of servings: 5 what type of physical activity do you participate in: none ROS ROS ED ROS Narrative Denies recent fever. No diarrhea. States she has had some nausea and limited vomiting. Denies any headache or abdominal pain. Constitutional Constitutional ED: Denies chills or fever(s) Eyes Eyes: Denies blurry vision ENT ENT ED: Denies ear pain Cardiovascular Cardiovascular: Denies chest pain Respiratory/Chest Respiratory/Chest: Denies cough Gastrointestinal Gastrointestinal: Reports nausea and vomiting; Denies abdominal pain Genitourinary Genitourinary ED: Denies dysuria or hematuria Musculoskeletal Musculoskeletal: Denies arthralgias or back pain Integumentary Denies abscess Neurologic Neurologic: Denies headache(s) Psychiatric Psychiatric: Denies anxiety Endocrine Endocrinology: Denies cold intolerance Hematologic/Lymphatic Hematologic/Lymphatic: Reports none Allergic/Immunologic Allergic/Immunologic ED: Denies mouth swelling, tongue swelling or urticaria EXAM Physical Exam Narrative Exam Narrative: 65-year-old male sitting upright in bed. Vital signs are stable afebrile. Pulse ox is 98% on 2 L. No hypoxia on the oxygen. He is in no acute distress. He does appear chronically ill. Looks older than his stated age. He does not look septic or toxic. H EENT exam pupils are reactive light. Moist mucous membranes. Neck nontender no JVD. No facial or head trauma. No tenderness or bruising. Back nontender. Lungs clear to auscultation bilaterally. Diminished in the bases. Heart regular rhythm rate about 90 no murmur. Chest wall and ribs nontender. Abdomen soft nontender. Moving all 4 extremities. Hemanth wrap on his left lower extremity. Dorsi plantarflexion intact. Normal director of financial planning strength. Neurologically he is a little confused. He is not on his February but it just change management specialist to 07 March. He did know the president states. He knew he was in the hospital. Const Vital Signs: 03/09/25 10:32 03/09/25 10:36 03/09/25 11:36 Temperature 97.6 F L 97.6 F L 97.6 F L Temperature Source Oral Oral Oral Pulse Rate 91 92 92 Respiratory Rate 18 18 15 Blood Pressure 106/67 106/67 97/74 Blood Pressure Mean 80 80 81 Pulse Ox 98 99 97 Oxygen Delivery Method Nasal Cannula Nasal Cannula Nasal Cannula Oxygen Flow Rate (L/min) 2 2 2 03/09/25 12:00 03/09/25 13:00 03/09/25 14:00 Temperature 97.9 F 97.8 F Temperature Source Oral Oral Pulse Rate 91 91 Respiratory Rate 13 17 Blood Pressure 101/76 85/67 L 89/79 L Blood Pressure Mean 84 73 84 Pulse Ox 97 97 Oxygen Delivery Method Nasal Cannula Nasal Cannula Oxygen Flow Rate (L/min) 2 2 03/09/25 14:09 03/09/25 15:08 03/09/25 15:09 Temperature Temperature Source Pulse Rate 92 Respiratory Rate 17 Blood Pressure 90/59 L 104/74 Blood Pressure Mean 70 85 Pulse Ox 81 Oxygen Delivery Method Oxygen Flow Rate (L/min) 03/09/25 15:15 03/09/25 15:45 03/09/25 15:46 Temperature Temperature Source Pulse Rate Respiratory Rate Blood Pressure 108/87 H 101/65 Blood Pressure Mean 93 70 Pulse Ox 56 Oxygen Delivery Method Oxygen Flow Rate (L/min) 03/09/25 16:01 Temperature Temperature Source Pulse Rate Respiratory Rate Blood Pressure 116/68 Blood Pressure Mean 82 Pulse Ox Oxygen Delivery Method Oxygen Flow Rate (L/min) MDM MDM MDM Narrative Medical decision making narrative: 65-year-old male sent in for altered mental status. CAT scan the labs to be obtained. Due to his history of cirrhosis I will check ammonia level. Rule out infection. I do not think this is from trauma or head bleed. Clinically at this time there is no obvious signs of stroke. Repeat exam around 4:21 PM patient doing well. He has eaten. His vital signs are stable. I did previously speak to [facility]. He will be discharged back to their facility. History & Record Review Discussion w/independent historian: Patient Additional record(s) reviewed:: Prior inpatient record, Prior outpatient record, Prior ED visit and Prior labs Lab Data Attestation: I reviewed the patient's lab results. Lab results narrative: CBC shows a week of 8.4 H&H 11.9 and 38. Platelets 314. Chemistries show gap 13. BUN and creatinine 23 and 0.9. Glucose 133. Liver enzymes unremarkable alk phos 135. Lactic acid is 1.4. UA normal. Chest x-ray cardiomegaly and right pleural effusion. CT brain chronic changes. Labs: Laboratory Results - last 24 hr 03/09/25 03/09/25 11:09 12:26 WBC 8.4 RBC 3.90 L Hgb 11.9 L Hct 38.3 L MCV 98.2 H MCH 30.5 MCHC 31.1 L RDW Std Deviation 63.9 H RDW Coeff of Maycol 17.9 H Plt Count 314 MPV 9.7 Immature Gran % (Auto) 0.400 Neut % (Auto) 62.1 Lymph % (Auto) 26.9 [place] % (Auto) 5.8 Eos % (Auto) 4.3 Baso % (Auto) 0.5 Absolute Neuts (auto) 5.2 Absolute Lymphs (auto) 2.27 Nucleated RBC % 0 Sodium 143 Potassium 3.3 Chloride 98 Carbon Dioxide 32.3 H Anion Gap 13 BUN 23 H Creatinine 0.95 Estim Creat Clear Calc 82.57 Est GFR (MDRD) Non-Af 89 BUN/Creatinine Ratio 24.6 H Glucose 133 H Lactic Acid 1.4 Calcium 9.0 Total Bilirubin 0.65 AST 36 ALT 20 Alkaline Phosphatase 135 H Ammonia 20.6 Total Protein 7.1 Albumin 3.7 Globulin 3.4 Albumin/Globulin Ratio 1.1 Urine Color Yellow Urine Clarity Sl. Cloudy Urine pH 7.0 Ur Specific [place] 1.010 Urine Protein 30 H Urine Glucose (UA) Normal Urine Ketones Negative Urine Occult Blood Negative Urine Nitrite Negative Urine Bilirubin Negative Urine Urobilinogen Normal Ur Leukocyte Esterase Negative Urine RBC 0 SEEN Urine WBC 0 SEEN Ur Squamous Epith Cells 0 SEEN Urine Bacteria 0 SEEN Urine Mucus 0 SEEN Radiography Chest X-Ray - ED: 2 View, Read by ED Physician, Heart, Mediastinum, Bony Structures, Chronic Changes and Right Effusion (Moderate to large right pleural effusion. Seen on prior.) Diagnostic Testing: Clinical Impression(s) from Imaging Studies Brain CT 03/09/25 10:47 IMPRESSION: No acute intracranial abnormalities. Reading Location: [facility] Chest X-Ray 03/09/25 11:22 IMPRESSION: Increasing right pleural effusion with right basilar atelectasis. Left lung is clear. Reading Location: [facility] Chest x-ray, 2 views AP lateral, interpreted by myself shows a moderate to large right pleural effusion. Cardiomegaly. Seen on prior films. No significant change. CAT scan of the brain shows chronic changes no acute process read by the radiologist. Rhythm Strip Rhythm Strip: Sinus Rhythm Rate: 88 Ectopy: None EKG Initial EKG: Attestation: I personally reviewed and interpreted this EKG as follows: Interpretation: Sinus Rhythm and No Acute Injury Pattern Comments: Normal sinus rhythm rate 88 no acute signs of [place] or ischemia. Discharge Plan Triage Chief Complaint: Alt LOC ED Provider: Devin Curry Dx/Rx/DC Orders Clinical Impression: Altered level of consciousness, History of stroke, Chronic pleural effusion Instructions: ED Confusion Prescriptions: No Action (DME) Handicap placard See Rx Instructions .Route .MEDSUPPLY Qty: 1 0RF Rx Instructions: Due to COPD, unable to walk 50 yards without assistance, duration 5 years. (DME) pen needle, diabetic [Comfort EZ Pen Brewster] 31 gauge x 5/16 needle See Rx Instructions .Route Qty: 100 3RF Rx Instructions: As directed nitroglycerin 0.4 mg tablet, sublingual 0.4 mg Sublingual Q5M PRN (Reason: Cardiac/Chest Pain) Qty: 25 1RF albuterol sulfate 90 mcg/actuation HFA aerosol inhaler 2 puff inhalation Q4H PRN (Reason: shortness of breath or wheezing) Qty: 6.7 1RF clopidogrel 75 mg tablet 75 mg PO DAILY Qty: 90 3RF ezetimibe 10 mg tablet 10 mg PO DAILY Qty: 90 3RF aspirin 81 mg tablet,chewable 81 mg PO BREAKFAST Qty: 90 3RF fluticasone propionate [Flonase Allergy Relief] 50 mcg/actuation spray,suspension 2 spray intranasal DAILY PRN (Reason: nasal congestion) Rx Instructions: administer into each nostril bisacodyl [Laxative (bisacodyl)] 10 mg suppository 10 mg ME DAILY PRN (Reason: constipation) mineral oil [Fleet Mineral Oil] Enema 118 ml ME DAILY PRN (Reason: constipation) Rx Instructions: discard any unused portion fluticasone propion-salmeterol [Advair Diskus] 100-50 mcg/dose blister with device 1 inh inhalation DAILY magnesium hydroxide [Gentle Laxative (mag hydrox)] 400 mg/5 mL suspension 30 ml PO DAILY PRN (Reason: constipation) therapeutic multivitamin Tablet 1 tab PO DAILY acetaminophen 500 mg capsule 500 mg PO Q6H PRN (Reason: pain) hydroxyzine pamoate [Vistaril] 25 mg capsule 25 mg PO Q8H PRN (Reason: anxiety) daptomycin 500 mg recon soln 600 mg IV Q24H Rx Instructions: qhs for wound, start 02/28/25 ertapenem 1 gram recon soln 1 g IM DAILY Rx Instructions: use 100 ml iv qam for wound, start 02/28/25 insulin lispro [Humalog KwikPen Insulin] 100 unit/mL insulin pen See Protocol subcut DAILY Protocol: 6. Sliding Scale Insulin Custom Condition: 150-199 Dose/Route: 1 Instruction: ac and HS Condition: 200-249 Dose/Route: 2 Condition: 250-299 Dose/Route: 3 Condition: 300-349 Dose/Route: 4 Condition: 350-399 Dose/Route: 5 Condition: > 400 Dose/Route: contact MD Protocol Text: Custom Sliding Scale lidocaine [Aspercreme (lidocaine)] 4 % adhesive patch,medicated 1 patch topical BID PRN (Reason: pain) Rx Instructions: apply to dent sodium chloride 0.9 % (flush) [Normal Saline Flush] Syringe 10 ml IV BID Rx Instructions: maintain patency use 10 ml iv bid for flush pantoprazole [Protonix] 40 mg tablet,delayed release (DR/EC) 40 mg PO DAILY polyethylene glycol 3350 [Miralax] 17 gram/dose powder 17 g PO DAILY senna 8.6 mg capsule 8.6 mg PO BID tamsulosin [Flomax] 0.4 mg capsule 0.4 mg PO DAILY thiamine HCl (vitamin B1) [Vitamin B-1] 100 mg tablet 100 mg PO DAILY metoprolol succinate 25 mg tablet extended release 24 hr 25 mg PO DAILY torsemide 40 mg tablet 40 mg PO DAILY trazodone 50 mg tablet 25 mg PO QHS midodrine 5 mg Tablet 5 mg PO TID (DME) FreeStyle Test Strip See Rx Instructions .ROUTE .MEDSUPPLY Qty: 50 11RF Rx Instructions: check blood glucose daily (DME) blood-glucose meter [FreeStyle System Kit] Kit See Rx Instructions .ROUTE .MEDSUPPLY Qty: 1 0RF Rx Instructions: check blood glucose daily for type 2 DM (DME) lancets [FreeStyle Lancets] 28 gauge misc See Rx Instructions .ROUTE .MEDSUPPLY Qty: 50 11RF Rx Instructions: Check blood glucose daily for type 2 DM (DME) pen needle, diabetic [1st Tier Unifine Pentips Plus] 31 gauge x 3/16 needle See Rx Instructions .ROUTE .MEDSUPPLY Qty: 100 1RF Rx Instructions: use with lantus nightly Repatha SureClick 140 mg/mL pen injector 140 mg subcut Q2W Qty: 6 3RF Primary Care Provider: Stefan Yusuf Referrals: Stefan Yusuf MD [Primary Care Provider, Family Practice] - As soon as possible Activity Restrictions/Additional Instructions: His workup was unremarkable. CAT scan of his brain looked good. Chest x-ray he has a known pleural effusion on the right. Urinalysis showed no signs of infection. Outpatient follow-up with your hospital medical biller. Print Language: Latvian Disposition Disposition: Home, Self Care
--- NOTE | 2025-03-09 10:50 | PCA ---
[facility] TO REQUEST [facility] L[facility]
[2025-03-09 11:20] LABS: Hematocrit 38.3 % (40-54); Hemoglobin 11.9 g/dL (13.0-16.5); Immature Granulocytes Count 0.030 X10^3/uL (0.0-0.0); Mean Corp Hgb Conc 31.1 g/dL (32-36); Mean Corpuscular Volume 98.2 fL (80-94); Mean Platelet Vol. 9.7 fl (6.2-12.0); NRBC Flagged by Analyzer 0 % (0-5); Platelet Count 314 K/mm3 (150-450); RBC Distribution Width CV 17.9 % (11.6-14.6); RBC Distribution Width SD 63.9 fl (35.1-43.9); Red Blood Count 3.90 M/mm3 (4.6-6.2); White Blood Count 8.4 K/mm3 (4.4-11.0)
--- NOTE | 2025-03-09 11:22 | RAD_ITS ---
PROCEDURE: CHEST PA AND LATERAL 03/09/2025 REASON FOR EXAM: ALOC TECHNIQUE: Procedure Code: RADCXR Modality: DX Procedure: CHEST PA AND LATERAL COMPARISON: March 01, 2025. FINDINGS: Hardware: A right-sided port a catheter is seen with the tip at the junction of the superior vena cava and right atrium. Heart: Mild cardiomegaly. Prior midline sternotomy. Mediastinum: The mediastinal contour is unremarkable. Lungs: Increasing right pleural effusion with right basilar compressive atelectasis. Bones: Degenerative changes are identified within the thoracic spine. RAD/Chest PA and Lateral IMPRESSION: Increasing right pleural effusion with right basilar atelectasis. Left lung is clear. Reading Location: [facility]
[2025-03-09 11:50] LABS: AST(SGOT) 36 U/L (<=37); Alanine Aminotransfer ALT/SGPT 20 U/L (<=46); Albumin, Serum 3.7 g/dL (3.4-4.8); Alkaline Phosphatase 135 U/L (40-129); Anion Gap 13 (5-15); BUN 23 mg/dL (4-19); BUN/Creat Ratio 24.6 RATIO (10-20); Calcium,Total 9.0 mg/dL (7.6-11.0); Carbon Dioxide 32.3 mmol/L (21.0-32.0); Chloride 98 mmol/L (98-108); Estimated Creatinine Clearance 82.57 ml/min (50-250); Globulin 3.4 g/dL (2.2-4.2); Glucose 133 mg/dL (70-99); Potassium 3.3 mmol/L (3.3-5.1)
[2025-03-09 12:05] LABS: Ammonia 20.6 umol/L (16-60)
[2025-03-09 12:40] LABS: Mucous, Urine 0 SEEN /hpf (<or=2+); Red Blood Cells-Urine 0 SEEN /hpf (0-5); Squamous Epithelial Cells - UA 0 SEEN /hpf (0-5)
[2025-03-09 12:41] LABS: Color, Urine Yellow (Yellow); Glucose, Dipstick Normal (Normal); Ketone-Dipstick Negative (Negative); Leukocyte Esterase-Dipstick Negative /ul (Negative); Nitrite-Dipstick Negative (Negative); Occult Blood-Urine Negative /ul (Negative); Protein-Dipstick 30 mg/dl (Negative); Specific Gravity, Urine 1.010 (1.002-1.030); Urine Bilirubin Dipstick Negative (Negative)
== END 2025-03-09 19:55 | disposition home or self-care (01) ==
PROVIDERS: Emergency Provider Emergency Medicine; PCP Family Medicine; Visit Provider Emergency Medicine
DX: R41.82 Altered mental status, unspecified (principal); I11.0 Hypertensive heart disease with heart failure; I50.9 Heart failure, unspecified; J44.9 Chronic obstructive pulmonary disease, unspecified; Z79.4 Long term (current) use of insulin; E11.9 Type 2 diabetes mellitus without complications; I25.10 Atherosclerotic heart disease of native coronary artery without angina pectoris; Z87.891 Personal history of nicotine dependence; E78.00 Pure hypercholesterolemia, unspecified; Z86.73 Personal history of transient ischemic attack (TIA), and cerebral infarction without residual deficits; Z95.1 Presence of aortocoronary bypass graft; I25.2 Old myocardial infarction; Z79.51 Long term (current) use of inhaled steroids; Z79.82 Long term (current) use of aspirin; Z79.01 Long term (current) use of anticoagulants; Z79.899 Other long term (current) drug therapy; K21.9 Gastro-esophageal reflux disease without esophagitis; J90 Pleural effusion, not elsewhere classified
CPT/HCPCS: 70450; 71046; 80053; 81001; 82140; 83605; 85025; 93005; 99284; A4216

== ENCOUNTER 2025-03-13 15:16 | Inpatient (IN) | payer MEDICARE, MEDICAID, SELFPAY ==
[2025-03-13] VITALS (36 sets, daily range): BP systolic 95–117; BP diastolic 68–97; PULSE 80–98; RESP 16–31; TEMP 36.4; O2SAT 90–100; BMI 23.0
--- NOTE | 2025-03-13 15:34 | EX.ED.DYSGE1 ---
HPI History of Present Illness Chief Complaint: Hypoglycemia Informant: patient, EMS and SNF Onset/Context/Timing Onset: Today Context: Sudden Onset Timing: Continuous Quality: Weakness Location: Right face, right leg Worsened by: Nothing Relieved by: Nothing Narrative Narrative: Patient presents with low blood sugar that was noticed today. Patient relates that extended care facility checked his blood sugar was noted to be 25. The extended-care facility administered glucagon and his blood sugar improved to 234. Nursing staff also reported the patient had some right facial weakness. Patient admits to a sore throat. Patient denies dyspnea or pain in his chest. Patient denies any fevers or chills. Patient denies any visual changes. Patient states he has some weakness in his right leg as well. Patient denies any right arm weakness. Patient denies any seizures. [facility] Medical History Type 2 diabetes mellitus with foot ulcer Atherosclerosis of [place] arteries of extremities with gangrene, left leg Bacteremia due to Gram-negative bacteria Severe sepsis History of diabetes mellitus Lower extremity edema History of CVA (cerebrovascular accident) Cardiac LV ejection fraction 30-35% GERD (gastroesophageal reflux disease) Anxiety High blood cholesterol Diabetes mellitus Emphysema, unspecified COPD (chronic obstructive pulmonary disease) Decreased left ventricular function Encounter for screening for malignant neoplasm of lung in current smoker with 30 pack year history or greater Stenosis of right carotid artery Insulin dependent diabetes mellitus History of non-ST elevation myocardial infarction (NSTEMI) (06/11/18) Emphysema lung Asthma Type 2 diabetes mellitus Arthritis Pancreatitis GERD (gastroesophageal reflux disease) Nicotine dependence Atherosclerosis of coronary artery of [place] heart without angina pectoris Hyperlipidemia Essential (primary) hypertension Home Medications ?Medication ?Instructions ?Recorded ?Last Taken ?Type blood sugar diagnostic (FreeStyle #50 ea 04/02/21 Unknown Rx Test strips) blood-glucose meter (FreeStyle #1 ea 04/02/21 Unknown Rx System Kit) lancets 28 gauge (FreeStyle #50 ea 04/02/21 Unknown Rx Lancets) pen needle, diabetic 31 gauge x #100 ea 04/02/21 Unknown Rx 3/16 (1st Tier Unifine Pentips Plus) Handicap placard #1 ea 07/22/23 Unknown Rx pen needle, diabetic 31 gauge x #100 ea 10/28/23 Unknown Rx 5/16 (Comfort EZ Pen V[place]rie) evolocumab 140 mg/mL subcutaneous 140 mg subcut Q2W cholesterol #6 mL 05/09/24 03/06/25 Rx pen injector (Wolf Bernal) fluticasone propionate 50 2 spray intranasal DAILY PRN nasal 09/18/24 Unknown History mcg/actuation nasal congestion spray,suspension (Flonase Allergy Relief) nitroglycerin 0.4 mg sublingual 0.4 mg sublingual Q5M PRN 09/27/24 Unknown Rx tablet Cardiac/Chest Pain #25 tabs aspirin 81 mg chewable tablet 81 mg PO BREAKFAST preventative 11/03/24 Unknown Rx #90 tabs clopidogrel 75 mg tablet 75 mg PO DAILY antiplatelet #90 11/03/24 Unknown Rx tabs ezetimibe 10 mg tablet 10 mg PO DAILY cholesterol #90 tabs 11/03/24 Unknown Rx albuterol sulfate 90 mcg/actuation 2 puff inhalation Q4H PRN 11/04/24 Unknown Rx aerosol inhaler shortness of breath or wheezing #6.7 grams acetaminophen 500 mg capsule 500 mg PO Q6H PRN pain 12/19/24 Unknown History bisacodyl 10 mg rectal suppository 10 mg KS DAILY PRN constipation 12/19/24 Unknown History (Laxative (bisacodyl)) fluticasone 100 mcg-salmeterol 50 1 inh inhalation DAILY COPD 12/19/24 Unknown History mcg/dose blistr powdr for inhalation (Advair Diskus) hydroxyzine pamoate 25 mg capsule 25 mg PO Q8H PRN anxiety 12/19/24 Unknown History (Vistaril) therapeutic multivitamin 1 tab PO DAILY 12/19/24 Unknown History daptomycin 500 mg intravenous 600 mg IV Q24H 03/01/25 02/28/25 History solution Held on 03/13/25. Instructions: Ordered insulin lispro 100 unit/mL See Protocol subcut DAILY 03/01/25 Unknown History subcutaneous pen (Humalog KwikPen (U-100) Insulin) lidocaine 4 % topical patch 1 patch topical BID PRN pain 03/01/25 Unknown History (Aspercreme (lidocaine)) metoprolol succinate 25 mg 25 mg PO DAILY HTN 03/01/25 Unknown History tablet,extended release 24 hr midodrine 5 mg tablet 5 mg PO TID low bp 03/01/25 Unknown History pantoprazole 40 mg tablet,delayed 40 mg PO DAILY GERD 03/01/25 Unknown History release (Protonix) polyethylene glycol 3350 17 17 g PO DAILY constipation 03/01/25 Unknown History gram/dose oral powder (Miralax) sennosides 8.6 mg capsule (senna) 8.6 mg PO BID 03/01/25 Unknown History sodium chloride 0.9 % (flush) 10 ml IV BID 03/01/25 Unknown History (Normal Saline Flush 0.9 % injection syringe) tamsulosin 0.4 mg capsule (Flomax) 0.4 mg PO DAILY BPH 03/01/25 Unknown History thiamine HCl (vitamin B1) 100 mg 100 mg PO DAILY 03/01/25 Unknown History tablet (Vitamin B-1) torsemide 40 mg tablet 40 mg PO DAILY 03/01/25 Unknown History trazodone 50 mg tablet 25 mg PO QHS insomnia 03/01/25 Unknown History atorvastatin 40 mg tablet (Lipitor) 40 mg PO QHS 03/13/25 Unknown History magnesium hydroxide 400 mg/5 mL 30 ml PO DAILY PRN constipation 03/13/25 Unknown History oral suspension (Milk of Magnesia) mineral oil (Fleet Mineral Oil 118 ml KS DAILY PRN constipation 03/13/25 Unknown History enema) Allergy/AdvReac Type Severity Reaction Status Date / Time amoxicillin Allergy Angioedema Verified 03/13/25 15:18 lindane Allergy Rash Verified 03/13/25 15:18 Family History Father Asthma Alcoholism Arthritis Heart disease Hypertension High cholesterol CVA (cerebral vascular accident) Lung cancer Grandfather Myocardial infarction Surgical History S/P CABG x 4 History of hernia repair History of carotid endarterectomy (01/06/14) H/O coronary artery bypass surgery (2006) History of left heart catheterization (06/11/18) Social History household members: none housing: shelter Smoking Status: Current some day smoker tobacco type: cigarettes Tobacco: How many years used: 45 Electronic Cigarette Use: not used second hand exposure: Yes quit status: considering quitting alcohol intake: never substance use type: does not use caffeine: Yes Type: coffee Number of servings: 5 what type of physical activity do you participate in: none ROS ROS ED Constitutional Constitutional ED: Denies chills or fever(s) Eyes Eyes: Denies blurry vision or change in vision ENT ENT ED: Reports sore throat; Denies rhinorrhea Cardiovascular Cardiovascular: Reports chest pain; Denies palpitations Respiratory/Chest Respiratory/Chest: Denies cough or dyspnea Gastrointestinal Gastrointestinal: Reports nausea and vomiting Genitourinary Genitourinary ED: Denies dysuria or hematuria Musculoskeletal Musculoskeletal: Denies back pain or neck pain Integumentary Denies abscess or rash Neurologic Neurologic: Reports headache(s); Denies weakness Allergic/Immunologic Allergic/Immunologic ED: Denies mouth swelling or urticaria EXAM Physical Exam Const Vital Signs: 03/13/25 15:20 03/13/25 15:24 03/13/25 15:47 Temperature 97.6 F L Temperature Source Axillary Pulse Rate 88 86 Respiratory Rate 20 H 17 Respiratory Effort Normal Non-Labored Respiratory Pattern Normal Blood Pressure 109/79 110/81 H Blood Pressure Mean 89 90 Pulse Ox 100 94 Oxygen Delivery Method Nasal Cannula Oxygen Flow Rate (L/min) 2 03/13/25 15:49 03/13/25 16:17 03/13/25 16:23 Temperature Temperature Source Pulse Rate 98 87 Respiratory Rate 22 H 23 H Respiratory Effort Respiratory Pattern Blood Pressure 117/88 H Blood Pressure Mean 97 Pulse Ox 95 98 100 Oxygen Delivery Method Nasal Cannula Nasal Cannula Oxygen Flow Rate (L/min) 2 2 03/13/25 16:30 03/13/25 16:38 03/13/25 16:45 Temperature Temperature Source Pulse Rate 90 88 85 Respiratory Rate 16 21 H 22 H Respiratory Effort Respiratory Pattern Blood Pressure Blood Pressure Mean Pulse Ox 96 92 90 Oxygen Delivery Method Oxygen Flow Rate (L/min) 03/13/25 16:49 03/13/25 17:00 03/13/25 17:15 Temperature 97.5 F L Temperature Source Axillary Pulse Rate 86 89 87 Respiratory Rate 23 H 24 H 23 H Respiratory Effort Respiratory Pattern Blood Pressure 95/70 95/70 Blood Pressure Mean 78 79 Pulse Ox 93 94 97 Oxygen Delivery Method Nasal Cannula Oxygen Flow Rate (L/min) 2 03/13/25 17:30 03/13/25 17:45 03/13/25 18:00 Temperature Temperature Source Pulse Rate 89 91 88 Respiratory Rate 16 17 25 H Respiratory Effort Respiratory Pattern Blood Pressure Blood Pressure Mean Pulse Ox 96 97 96 Oxygen Delivery Method Oxygen Flow Rate (L/min) 03/13/25 18:15 03/13/25 18:30 03/13/25 18:45 Temperature Temperature Source Pulse Rate 91 89 Respiratory Rate 22 H Respiratory Effort Respiratory Pattern Blood Pressure Blood Pressure Mean Pulse Ox 99 91 Oxygen Delivery Method Oxygen Flow Rate (L/min) 03/13/25 19:00 03/13/25 19:15 03/13/25 19:17 Temperature Temperature Source Pulse Rate 92 90 92 Respiratory Rate 18 31 H 20 H Respiratory Effort Respiratory Pattern Blood Pressure Blood Pressure Mean Pulse Ox Oxygen Delivery Method Oxygen Flow Rate (L/min) 03/13/25 19:30 03/13/25 19:45 03/13/25 20:01 Temperature Temperature Source Pulse Rate 93 85 80 Respiratory Rate 21 H 22 H 18 Respiratory Effort Respiratory Pattern Blood Pressure 97/82 H 117/97 H Blood Pressure Mean 88 106 Pulse Ox 99 Oxygen Delivery Method Oxygen Flow Rate (L/min) 03/13/25 20:27 03/13/25 20:30 03/13/25 20:45 Temperature Temperature Source Pulse Rate 88 86 89 Respiratory Rate 19 H 16 18 Respiratory Effort Respiratory Pattern Blood Pressure Blood Pressure Mean Pulse Ox 79 100 Oxygen Delivery Method Oxygen Flow Rate (L/min) 03/13/25 21:00 03/13/25 21:16 03/13/25 21:58 Temperature Temperature Source Pulse Rate 89 89 Respiratory Rate 19 H 20 H Respiratory Effort Respiratory Pattern Blood Pressure Blood Pressure Mean Pulse Ox 94 Oxygen Delivery Method Oxygen Flow Rate (L/min) 03/13/25 22:00 03/13/25 22:15 03/13/25 22:33 Temperature Temperature Source Pulse Rate 95 Respiratory Rate Respiratory Effort Respiratory Pattern Blood Pressure Blood Pressure Mean Pulse Ox 88 77 Oxygen Delivery Method Oxygen Flow Rate (L/min) 03/13/25 22:45 03/13/25 22:56 03/13/25 23:07 Temperature Temperature Source Pulse Rate Respiratory Rate Respiratory Effort Respiratory Pattern Blood Pressure 107/68 Blood Pressure Mean 80 Pulse Ox 84 64 Oxygen Delivery Method Oxygen Flow Rate (L/min) 03/13/25 23:17 Temperature Temperature Source Pulse Rate Respiratory Rate Respiratory Effort Respiratory Pattern Blood Pressure Blood Pressure Mean Pulse Ox 80 Oxygen Delivery Method Oxygen Flow Rate (L/min) Positive well nourished and well developed General Appearance ED: well developed and NAD HEENT Reports dry mucous membranes Mouth ED: Yes dry mucous membranes Mouth: dry mucous membranes Neck supple and no JVD Chest Wall inspection of chest normal and palpation of chest normal Resp normal respiratory effort and clear to auscultation bilaterally Cardio regular rate and regular rhythm GI non-tender and non-distended Palpation: soft Neuro CN's II-XII intact bilaterally and no sensory deficits noted Neuro Narrative: There is right facial weakness. The eyebrows are able to elevate equally. Patient is able to lift both legs off of the bed for 5 seconds. Patient is able to hold both arms out and ferment for 10 seconds. Sensorium / Orientation: alert Psych mental status grossly normal MDM MDM MDM Narrative Medical decision making narrative: Differential diagnose includes stroke, sepsis, electrolyte abnormality, dehydration, urinary tract infection, intracranial bleeding, and hypoglycemia. Stroke order set was used. Stroke team was called. CT scan of the brain will be obtained to assess for stroke and intracranial bleeding. CTA of the head and neck will be obtained to assess for large vessel occlusion and vascular stenosis. Chest x-ray will be obtained to assess for pneumonia or bronchitis. CBC will be obtained to assess for leukocytosis and anemia. Basic metabolic profile will be obtained to assess for electrolyte abnormality renal function. PT with INR and PTT will be obtained to assess for coagulopathy. High-sensitivity troponin will be obtained to assess for cardiac ischemia. 2-hour repeat high-sensitivity troponin will be obtained to assess for ongoing cardiac ischemia. History & Record Review Additional record(s) reviewed:: Prior inpatient record, Prior ED visit and Prior labs Lab Data Attestation: I reviewed the patient's lab results. Lab results narrative: CBC was reviewed and was within normal limits. Basic metabolic profile was reviewed. Creatinine was slightly elevated 1.52 and BUN was 35. Glucose was 206. Initial high-sensitivity troponin was reviewed and was elevated at 81. 2-hour repeat high-sensitivity troponin was reviewed and was 83. Labs: Laboratory Results - last 24 hr 03/13/25 03/13/25 03/13/25 15:25 15:44 17:15 WBC 7.3 RBC 4.39 L Hgb 13.7 Hct 43.4 MCV 98.9 H MCH 31.2 MCHC 31.6 L RDW Std Deviation 63.3 H RDW Coeff of Maycol 17.8 H Plt Count 296 MPV 10.3 Immature Gran % (Auto) 0.100 Neut % (Auto) 60.8 Lymph % (Auto) 30.6 [place] % (Auto) 6.3 Eos % (Auto) 1.8 Baso % (Auto) 0.4 Absolute Neuts (auto) 4.4 Absolute Lymphs (auto) 2.24 Nucleated RBC % 0 PT Cancelled Cancelled INR Cancelled Cancelled APTT Cancelled Cancelled Sodium 143 Potassium 4.3 Chloride 98 Carbon Dioxide 25.6 Anion Gap 20 H BUN 35 H Creatinine 1.52 H Estim Creat Clear Calc 51.29 Est GFR (MDRD) Non-Af 51 L BUN/Creatinine Ratio 22.8 H Glucose 206 H Calcium 9.4 Ammonia Troponin T High Sens 81 H* D Troponin T Hi Sens 2 Hr Troponin T Hi Sens 4Hr POC Glucose 204 H 03/13/25 03/13/25 03/13/25 17:45 18:26 19:12 WBC RBC Hgb Hct MCV MCH MCHC RDW Std Deviation RDW Coeff of Maycol Plt Count MPV Immature Gran % (Auto) Neut % (Auto) Lymph % (Auto) [place] % (Auto) Eos % (Auto) Baso % (Auto) Absolute Neuts (auto) Absolute Lymphs (auto) Nucleated RBC % PT Cancelled 18.1 H INR Cancelled 1.5 APTT Cancelled 29.3 Sodium Potassium Chloride Carbon Dioxide Anion Gap BUN Creatinine Estim Creat Clear Calc Est GFR (MDRD) Non-Af BUN/Creatinine Ratio Glucose Calcium Ammonia 14.9 L Troponin T High Sens Troponin T Hi Sens 2 Hr 83 H* Troponin T Hi Sens 4Hr POC Glucose 03/13/25 03/13/25 20:06 20:10 WBC RBC Hgb Hct MCV MCH MCHC RDW Std Deviation RDW Coeff of [place]col Plt Count MPV Immature Gran % (Auto) Neut % (Auto) Lymph % (Auto) [place] % (Auto) Eos % (Auto) Baso % (Auto) Absolute Neuts (auto) Absolute Lymphs (auto) Nucleated RBC % PT INR APTT Sodium Potassium Chloride Carbon Dioxide Anion Gap BUN Creatinine Estim Creat Clear Calc Est GFR (MDRD) Non-Af BUN/Creatinine Ratio Glucose Calcium Ammonia Troponin T High Sens Troponin T Hi Sens 2 Hr Troponin T Hi Sens 4Hr 86 H* POC Glucose 131 H Radiography Chest X-Ray - ED: 1 View, Read by ED Physician, Read by Radiologist, Cardiomegaly and Right Effusion Diagnostic Testing: Clinical Impression(s) from Imaging Studies Head/Neck CTA 03/13/25 15:47 IMPRESSION: 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 Redemonstrated mild stenosis along the right M1 with minimal to mildly diminutive flow within right M2 and M3 distal branches compared to left. No new acute high-grade stenosis or large vessel occlusion. Large right pleural effusion and mild left pleural effusion. The critical findings in the findings and impression above were relayed directly by me by telephone to Saúl Aguilar on 03/13/2025 at 4:30 pm EST with readback verification. Reading Location: [facility] Brain CT 03/13/25 15:49 IMPRESSION: No acute, large territorial infarction. Stroke Alert: Negative The critical findings in the findings and impression above were relayed directly by me by telephone to Saúl Aguilar on 03/13/2025 at 4:22 pm EST with readback verification. Reading Location: [facility] Chest X-Ray 03/13/25 16:40 IMPRESSION: Unchanged cardiomegaly with moderate-large right pleural effusion. Reading Location: [facility] CT scan of the brain was obtained. There is no acute intracranial abnormality. This was interpreted by the radiologist and was also independently reviewed by myself. CTA of the head and neck was obtained. There is chronic occlusion of the right internal carotid with retrograde filling distally from collateral flow. There is stenosis along the right M1, M2, M3 distal branches. There is no new high-grade stenosis or large vessel occlusion noted. This was interpreted by the radiologist. I also independently reviewed the images and did not see evidence of large vessel occlusion. Portable 1 view chest x-ray was obtained. On my independent interpretation, lung cardenas show a right pleural effusion. There is cardiomegaly. Bony thorax is normal. There is no acute process noted. Radiologist also interpreted the x-ray and agrees. EKG Initial EKG: Attestation: I personally reviewed and interpreted this EKG as follows: Interpretation: Sinus Rhythm (86) and Non-Specific ST Changes Comments: EKG was obtained. On my independent interpretation, it showed a normal sinus rhythm with a rate of 86. KS interval, QRS interval, and QTc intervals were all normal. [place] was normal. There are nonspecific ST-T wave changes. Prior EKG tracings: available for review Prior: Unchanged (03/09/2025) Management Discussion w/another healthcare provider: Hospitalist (Dr. Wolff), Service Specialist (Stroke neurologist at [facility]) and Radiologist Treatment and Re-Evaluation :: Stroke workup was maintained. Patient was evaluated by stroke neurologist. She felt patient could be admitted locally for further stroke care. Patient was given aspirin for his elevated troponin. There was a note that said patient was supposed to go to [place] emergency department to see infectious disease. Patient stated he would prefer to stay here. Case was discussed with the hospitalist. She was in to evaluate the patient. She noted the patient was having hallucinations. On chart review, it was noted the patient was having hallucinations when he was here on 03/09. Hospitalist called the extended-care facility and they reported that his hallucinations have gotten worse. They felt that it could be due to the daptomycin. They have been holding his daptomycin. Hospitalist felt that the patient would be better served to go back to [facility] where he would has been seen for his foot infection and infectious disease over there. Case was discussed with Dr. Hartley. Patient was accepted to the service of Dr. Thornton. Patient will be transferred there when a bed becomes available. Transfer form was filled out. Discharge Plan Triage Chief Complaint: Hypoglycemia ED Provider: Saúl Aguilar Dx/Rx/DC Orders Clinical Impression: Weakness on right side of face, Hypoglycemic episode in patient with diabetes mellitus, Left foot infection, Visual hallucinations Prescriptions: No Action (DME) Handicap placard See Rx Instructions .Route .MEDSUPPLY Qty: 1 0RF Rx Instructions: Due to COPD, unable to walk 50 yards without assistance, duration 5 years. (DME) pen needle, diabetic [Comfort EZ Pen Vacherie] 31 gauge x 5/16 needle See Rx Instructions .Route Qty: 100 3RF Rx Instructions: As directed nitroglycerin 0.4 mg tablet, sublingual 0.4 mg Sublingual Q5M PRN (Reason: Cardiac/Chest Pain) Qty: 25 1RF albuterol sulfate 90 mcg/actuation HFA aerosol inhaler 2 puff inhalation Q4H PRN (Reason: shortness of breath or wheezing) Qty: 6.7 1RF clopidogrel 75 mg tablet 75 mg PO DAILY Qty: 90 3RF ezetimibe 10 mg tablet 10 mg PO DAILY Qty: 90 3RF aspirin 81 mg tablet,chewable 81 mg PO BREAKFAST Qty: 90 3RF fluticasone propionate [Flonase Allergy Relief] 50 mcg/actuation spray,suspension 2 spray intranasal DAILY PRN (Reason: nasal congestion) Rx Instructions: administer into each nostril bisacodyl [Laxative (bisacodyl)] 10 mg suppository 10 mg KS DAILY PRN (Reason: constipation) fluticasone propion-salmeterol [Advair Diskus] 100-50 mcg/dose blister with device 1 inh inhalation DAILY therapeutic multivitamin Tablet 1 tab PO DAILY acetaminophen 500 mg capsule 500 mg PO Q6H PRN (Reason: pain) hydroxyzine pamoate [Vistaril] 25 mg capsule 25 mg PO Q8H PRN (Reason: anxiety) daptomycin 500 mg recon soln 600 mg IV Q24H Rx Instructions: qhs for wound, start 02/28/25 insulin lispro [Humalog KwikPen Insulin] 100 unit/mL insulin pen See Protocol subcut DAILY Protocol: 6. Sliding Scale Insulin Custom Condition: 150-199 Dose/Route: 1 Instruction: ac and HS Condition: 200-249 Dose/Route: 2 Condition: 250-299 Dose/Route: 3 Condition: 300-349 Dose/Route: 4 Condition: 350-399 Dose/Route: 5 Condition: > 400 Dose/Route: contact MD Protocol Text: Custom Sliding Scale lidocaine [Aspercreme (lidocaine)] 4 % adhesive patch,medicated 1 patch topical BID PRN (Reason: pain) Rx Instructions: apply to dent sodium chloride 0.9 % (flush) [Normal Saline Flush] Syringe 10 ml IV BID Rx Instructions: maintain patency use 10 ml iv bid for flush pantoprazole [Protonix] 40 mg tablet,delayed release (DR/EC) 40 mg PO DAILY polyethylene glycol 3350 [Miralax] 17 gram/dose powder 17 g PO DAILY senna 8.6 mg capsule 8.6 mg PO BID tamsulosin [Flomax] 0.4 mg capsule 0.4 mg PO DAILY thiamine HCl (vitamin B1) [Vitamin B-1] 100 mg tablet 100 mg PO DAILY metoprolol succinate 25 mg tablet extended release 24 hr 25 mg PO DAILY torsemide 40 mg tablet 40 mg PO DAILY trazodone 50 mg tablet 25 mg PO QHS midodrine 5 mg Tablet 5 mg PO TID mineral oil [Fleet Mineral Oil] Enema 118 ml KS DAILY PRN (Reason: constipation) Rx Instructions: discard any unused portion atorvastatin [Lipitor] 40 mg tablet 40 mg PO QHS magnesium hydroxide [Milk of Magnesia] 400 mg/5 mL suspension 30 ml PO DAILY PRN (Reason: constipation) Rx Instructions: if no BM for 3 consecutive days (DME) FreeStyle Test Strip See Rx Instructions .ROUTE .MEDSUPPLY Qty: 50 11RF Rx Instructions: check blood glucose daily (DME) blood-glucose meter [FreeStyle System Kit] Kit See Rx Instructions .ROUTE .MEDSUPPLY Qty: 1 0RF Rx Instructions: check blood glucose daily for type 2 DM (DME) lancets [FreeStyle Lancets] 28 gauge misc See Rx Instructions .ROUTE .MEDSUPPLY Qty: 50 11RF Rx Instructions: Check blood glucose daily for type 2 DM (DME) pen needle, diabetic [1st Tier Unifine Pentips Plus] 31 gauge x 3/16 needle See Rx Instructions .ROUTE .MEDSUPPLY Qty: 100 1RF Rx Instructions: use with lantus nightly Repatha SureClick 140 mg/mL pen injector 140 mg subcut Q2W Qty: 6 3RF Primary Care Provider: Stefan Yusuf Referrals: Stefan Yusuf MD [Primary Care Provider, Family Practice] Print Language: Albanian Disposition Disposition: Acute Care Hospital Discharge Location: [facility]
--- NOTE | 2025-03-13 15:47 | EKG12_ITS ---
Test Reason : STROKE TEAM Blood Pressure : */* mmHG Vent. Rate : 86 BPM Atrial Rate : 86 BPM P-R Int : 156 ms QRS Dur : 86 ms QT Int : 406 ms P-R-T Axes : 59 47 174 degrees QTcB Int : 485 ms Normal sinus rhythm Possible Septal infarct , age undetermined ST & T wave abnormality, consider anterior ischemia Abnormal ECG Confirmed by Steve Baig ([id number]), mapping editor LISS JARVIS ([id number]) on 03/15/2025 11:37:19 AM Referred By: Confirmed By: Steve Baig
--- NOTE | 2025-03-13 15:47 | CT_ITS ---
PROCEDURE: STROKE CTA HEAD AND NECK W/CON 03/13/2025 REASON FOR EXAM: NEURO DEFICIT, ACUTE, STROKE SUSPECTED TECHNIQUE: Procedure Code: CTCTA.ST.HN Modality: CT Procedure: STROKE CTA HEAD AND NECK W/CON Multiplanar Sagittal and Coronal images were obtained. CONTRAST: 100 mL of Isovue 370 One or more dose reduction techniques were used (e.g., Automated exposure control, adjustment of the mA and/or kV according to patient size, use of iterative reconstruction technique). RADIATION DOSE SUMMARY: DLP: 760 mGycm COMPARISON: 11/28/2024 FINDINGS: CTA HEAD: Patent major intracranial arterial vasculature with minimal narrowing of the right M1, chronic. There is minimally diminutive distal right M2 and M3 branches compared to the left, grossly unchanged. No large vessel occlusion, high grade stenosis, saccular aneurysm, or vascular malformation identified. The right anterior and middle cerebral arteries are patent likely via collateral supply. Redemonstrated distal right ICA supraclinoid segment slowly reconstitutes from retrograde filling from collateral flow. CTA NECK: Conventional aortic arch branching. Redemonstrated extensive mixed atheromatous plaque at the carotid artery bifurcations, with redemonstrated chronic occlusion of the right cervical ICA to the distal cavernous/supraclinoid ICA segment. Moderate stenosis of the left ICA origin again seen. Atherosclerotic plaque along the carotid siphons with multifocal bnle-ex-jlxuvieq stenosis. Moderate stenosis at the origin of the right vertebral artery secondary to atherosclerotic plaque. There is also moderate-advanced segmental stenosis of the distal right vertebral artery V4 segment due to irregular atheromatous plaque. Left vertebral artery is widely patent. No evidence of aneurysm or dissection. NON-ANGIOGRAPHIC FINDINGS: Moderate multilevel degenerative changes of the cervical spine. Large right pleural effusion and mild left pleural effusion. pulmonary emphysema. Enlarged heterogeneous multinodular thyroid gland. 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 Redemonstrated mild stenosis along the right M1 with minimal to mildly diminutive flow within right M2 and M3 distal branches compared to left. No new acute high-grade stenosis or large vessel occlusion. Large right pleural effusion and mild left pleural effusion. The critical findings in the findings and impression above were relayed directl y by me by telephone to Saúl Aguilar on 03/13/2025 at 4:30 pm EST with readback verification. Reading Location: [id number]
--- NOTE | 2025-03-13 15:49 | CT_ITS ---
PROCEDURE: STROKE BRAIN/HEAD WITHOUT CONT 03/13/2025 REASON FOR EXAM: NEURO DEFICIT, ACUTE, STROKE SUSPECTED TECHNIQUE: Procedure Code: CTBR.ST Modality: CT Procedure: STROKE BRAIN/HEAD WITHOUT CONT Coronal and Sagittal reconstruction series were provided. One or more dose reduction techniques were used (e.g., Automated exposure control, adjustment of the mA and/or kV according to patient size, use of iterative reconstruction technique. RADIATION DOSE SUMMARY: DLP: 798 mGycm FINDINGS: Right anterior frontal and superior frontal encephalomalacia, grossly unchanged compared to 03/09/2025. Right crane radiata lacunar infarctions, chronic. Fyco-eh-slqxhbyn chronic microvascular ischemic changes and parenchymal volume loss. No acute, large territorial infarction. There is no acute infarct, intracranial hemorrhage, or mass effect. There is no hydrocephalus or significant midline shift. No acute, depressed calvarial fractures. No large scalp hematomas. The paranasal sinuses are clear. CT/STROKE Brain/Head without Cont IMPRESSION: No acute, large territorial infarction. Stroke Alert: Negative The critical findings in the findings and impression above were relayed directl y by me by telephone to Saúl Aguilar on 03/13/2025 at 4:22 pm EST with readback verification. Reading Location: [id number]
--- NOTE | 2025-03-13 15:59 | CM.ED ---
Social work Reason for referral: stroke alert SW responded to stroke alert called for patient. Patient was taken to imaging; no family present. SW to remain available as needed. Jennifer Javier, SENIOR WATER RESOURCES ENGINEER, EQUITIES ANALYST
--- NOTE | 2025-03-13 15:59 | ED.RN ---
This RN called stroke line, long lines operator states that there are several pts ahead of this one and they will call when it is our turn.
[2025-03-13 16:10] LABS: Hematocrit 43.4 % (40-54); Hemoglobin 13.7 g/dL (13.0-16.5); Immature Granulocytes Count 0.010 X10^3/uL (0.0-0.0); Mean Corp Hgb Conc 31.6 g/dL (32-36); Mean Corpuscular Volume 98.9 fL (80-94); Mean Platelet Vol. 10.3 fl (6.2-12.0); NRBC Flagged by Analyzer 0 % (0-5); Platelet Count 296 K/mm3 (150-450); RBC Distribution Width CV 17.8 % (11.6-14.6); RBC Distribution Width SD 63.3 fl (35.1-43.9); Red Blood Count 4.39 M/mm3 (4.6-6.2); White Blood Count 7.3 K/mm3 (4.4-11.0)
--- NOTE | 2025-03-13 16:40 | RAD_ITS ---
PROCEDURE: CHEST 1 VIEW 03/13/2025 REASON FOR EXAM: NEURO DEFICIT, ACUTE, STROKE SUSPECTED TECHNIQUE: Frontal view of the chest. COMPARISON: 03/09/2025 FINDINGS: Right IJ approach central venous catheter, tip at the superior cavoatrial junction. Stable cardiomegaly. No significant interval change in the moderate-large right pleural effusion likely with adjacent atelectasis. Coexisting consolidation not excluded. No focal consolidation or sizable pleural effusion on the left. No pneumothorax. Degenerative changes of the spine. Sternotomy wires with evidence of CABG. RAD/Chest 1 View IMPRESSION: Unchanged cardiomegaly with moderate-large right pleural effusion. Reading Location: [id number]
[2025-03-13 17:16] LABS: Anion Gap 20 (5-15); BUN 35 mg/dL (4-19); BUN/Creat Ratio 22.8 RATIO (10-20); Calcium,Total 9.4 mg/dL (7.6-11.0); Carbon Dioxide 25.6 mmol/L (21.0-32.0); Chloride 98 mmol/L (98-108); Estimated Creatinine Clearance 51.29 ml/min (50-250); Glucose 206 mg/dL (70-99); Potassium 4.3 mmol/L (3.3-5.1); Troponin T High Sensitivity 81 ng/L (<=22)
--- NOTE | 2025-03-13 17:17 | ED.RN ---
Critical troponin received from lab of 81. Dr. Aguilar notified.
--- NOTE | 2025-03-13 18:17 | ED.RN ---
spoke with daughter for pt update
[2025-03-13 18:32] LABS: Troponin T High Sens 2 HR 83 ng/L (<=22)
[2025-03-13 18:55] LABS: Partial Thromboplast Time 29.3 Seconds (24.1-36.2); Prothrombin Time (Protime)PT. 18.1 SECONDS (11.7-14.9)
[2025-03-13 19:40] LABS: Ammonia 14.9 umol/L (16-60)
[2025-03-13 20:49] LABS: Troponin T High Sens 4 HR 86 ng/L (<=22)
[2025-03-14] VITALS (15 sets, daily range): BP systolic 84–148; BP diastolic 53–93; PULSE 84–106; RESP 18–22; TEMP 36.1–36.8; O2SAT 90–99; BMI 23.4; BMI 23.5
--- NOTE | 2025-03-14 00:19 | ED.RN ---
Pt continues to try to get out of bed, will not leave any monitoring in place. Dr. Aguilar notified. See MAR for orders.
[2025-03-14] MEDS: Ziprasidone IM 20 MG/ML VIAL 10 MG IM (02:18)
--- NOTE | 2025-03-14 03:12 | HP.PCM.HOS_ITS ---
HPI - General General Date of Admission: 03/14/25 Date of Service: 03/14/25 Chief Complaint: R/O stroke, Pending bed availability at [facility] Narrative geeta CASTILLO a 65 M was brought to ED by EMS from [facility] for hypoglycemia and concern of possible TIA. As per intermediate, patient's BP was 216/88 and then dropped to 88/20 as per EMS. He also had facial droop. Was was also found hypoglycemia, glucose 25 and was given IM glucagon. EMS vitals shows BP 140s/74 and heart rate 117. Repeat glucose was 234 with no signs of hypoglycemia. Besides that, patient has chronic right foot infection and ulcer for which he is getting the treatment as per [facility] ID consulted. Patient also has right chest central line. As per ED physician Dr. Knight, patient denies chest pain pressure or dyspnea and there are some subtle right-sided facial droop and right leg weakness. No fever or chills or visual changes. No right arm weakness. No seizure. Stroke alert was called and patient had CT scan and CTA head and neck. Patient was evaluated by [facility] stroke neurologist and was given aspirin. Findings are discussed in assessment and plan. In the meantime, it was found that patient was supposed to go to [facility] ED to see infectious disease and patient was having hallucinations which were getting worse and attributed to to daptomycin. Daptomycin on hold. ED physician discussed with Dr. Hartley who accepted the patient to the service of Dr. Thornton but there is no bed available. Patient has been in ED for about 10 hours therefore admitted to PCU Patient is also very agitated confused, trying to get out of the bed therefore Geodon 10 mg IM given before I see the patient. Patient not able to give any history, confused therefore history mainly taken from the ED physician and the chart. [facility] Medical History Type 2 diabetes mellitus with foot ulcer Atherosclerosis of [place] arteries of extremities with gangrene, left leg Bacteremia due to Gram-negative bacteria Severe sepsis History of diabetes mellitus Lower extremity edema History of CVA (cerebrovascular accident) Cardiac LV ejection fraction 30-35% GERD (gastroesophageal reflux disease) Anxiety High blood cholesterol Diabetes mellitus Emphysema, unspecified COPD (chronic obstructive pulmonary disease) Decreased left ventricular function Encounter for screening for malignant neoplasm of lung in current smoker with 30 pack year history or greater Stenosis of right carotid artery Insulin dependent diabetes mellitus History of non-ST elevation myocardial infarction (NSTEMI) (06/11/18) Emphysema lung Asthma Type 2 diabetes mellitus Arthritis Pancreatitis GERD (gastroesophageal reflux disease) Nicotine dependence Atherosclerosis of coronary artery of [place] heart without angina pectoris Hyperlipidemia Essential (primary) hypertension Home Medications ?Medication ?Instructions ?Recorded ?Last Taken ?Type blood sugar diagnostic (FreeStyle #50 ea 04/02/21 Unkn own Rx Test strips) blood-glucose meter (FreeStyle #1 ea 04/02/21 Unknown Rx System Kit) lancets 28 gauge (FreeStyle #50 ea 04/02/21 Unknown Rx Lancets) pen needle, diabetic 31 gauge x #100 ea 04/02/21 Unkno wn Rx 3/16 (1st Tier Unifine Pentips Plus) Handicap placard #1 ea 07/22/23 Unknown Rx pen needle, diabetic 31 gauge x #100 ea 10/28/23 Unkno wn Rx 5/16 (Comfort EZ Pen [place]) evolocumab 140 mg/mL subcutaneous 140 mg subcut Q2W ch olesterol #6 mL 05/09/24 03/06/25 Rx pen injector (Repathwojciech Bernal) fluticasone propionate 50 2 spray intranasal DAILY PRN nasal 09/18/24 Unknown History mcg/actuation nasal congestion spray,suspension (Flonase Allergy Relief) nitroglycerin 0.4 mg sublingual 0.4 mg sublingual Q5M PRN 09/27/24 Unknown Rx tablet Cardiac/Chest Pain #25 tabs aspirin 81 mg chewable tablet 81 mg PO BREAKFAST preve ntative 11/03/24 Unknown Rx #90 tabs clopidogrel 75 mg tablet 75 mg PO DAILY antiplatelet #90 11/03/24 Unknown Rx tabs ezetimibe 10 mg tablet 10 mg PO DAILY cholesterol # 90 tabs 11/03/24 Unknown Rx albuterol sulfate 90 mcg/actuation 2 puff inhalation Q 4H PRN 11/04/24 Unknown Rx aerosol inhaler shortness of breath or wheez ing #6.7 grams acetaminophen 500 mg capsule 500 mg PO Q6H PRN pain Unknown History bisacodyl 10 mg rectal suppository 10 mg RI DAILY PRN constipation 12/19/24 Unknown History (Laxative (bisacodyl)) fluticasone 100 mcg-salmeterol 50 1 inh inhalation JUD LY COPD 12/19/24 Unknown History mcg/dose blistr powdr for inhalation (Advair Diskus) hydroxyzine pamoate 25 mg capsule 25 mg PO Q8H PRN anx iety 12/19/24 Unknown History (Vistaril) therapeutic multivitamin 1 tab PO DAILY 12/19/24 Unkn own History daptomycin 500 mg intravenous 600 mg IV Q24H 03/01/25 02/28/25 History solution Held on 03/13/25. Instructions: MD Ordered insulin lispro 100 unit/mL See Protocol subcut DAILY 1 05/01/24 Unknown History subcutaneous pen (Humalog KwikPen (U-100) Insulin) lidocaine 4 % topical patch 1 patch topical BID PRN pa in 03/01/25 Unknown History (Aspercreme (lidocaine)) metoprolol succinate 25 mg 25 mg PO DAILY HTN 03/01/25 Unknown History tablet,extended release 24 hr midodrine 5 mg tablet 5 mg PO TID low bp 03/01/25 Unknown History pantoprazole 40 mg tablet,delayed 40 mg PO DAILY GERD 03/01/25 Unknown History release (Protonix) polyethylene glycol 3350 17 17 g PO DAILY constipation 03/01/25 Unknown History gram/dose oral powder (Miralax) sennosides 8.6 mg capsule (senna) 8.6 mg PO BID Unknown History sodium chloride 0.9 % (flush) 10 ml IV BID 03/01/25 Un known History (Normal Saline Flush 0.9 % injection syringe) tamsulosin 0.4 mg capsule (Flomax) 0.4 mg PO DAILY BPH 03/01/25 Unknown History thiamine HCl (vitamin B1) 100 mg 100 mg PO DAILY 03/01 Unknown History tablet (Vitamin B-1) torsemide 40 mg tablet 40 mg PO DAILY 03/01/25 Unkn own History trazodone 50 mg tablet 25 mg PO QHS insomnia Unknown History atorvastatin 40 mg tablet (Lipitor) 40 mg PO QHS 03/13 Unknown History magnesium hydroxide 400 mg/5 mL 30 ml PO DAILY PRN con stipation 03/13/25 Unknown History oral suspension (Milk of Magnesia) mineral oil (Fleet Mineral Oil 118 ml RI DAILY PRN con stipation 03/13/25 Unknown History enema) Allergy/AdvReac Type Severity Reaction Status Date / Time amoxicillin Allergy Angioedema Verified 03/13/25 15:18 lindane Allergy Rash Verified 03/13/25 15:18 Family History Father Asthma Alcoholism Arthritis Heart disease Hypertension High cholesterol CVA (cerebral vascular accident) Lung cancer Grandfather Myocardial infarction Surgical History S/P CABG x 4 History of hernia repair History of carotid endarterectomy (01/06/14) H/O coronary artery bypass surgery (2006) History of left heart catheterization (06/11/18) Social History household members: none housing: intermediate Smoking Status: Current some day smoker tobacco type: cigarettes Tobacco: How many years used: 45 Electronic Cigarette Use: not used second hand exposure: Yes quit status: considering quitting alcohol intake: never substance use type: does not use caffeine: Yes Type: coffee Number of servings: 5 what type of physical activity do you participate in: none ROS ROS Narrative General: Confused, disoriented, agitated. Noncommunicative HEENT: Atraumatic, PERRLA, EOMI, Normocephalic. Oral: No Gingival or Mucosal Lesions/ Ulcerations Neck: Supple, No JVD, Negative Carotid Bruits Chest wall/Lungs: Air entry diminished in bilateral lung bases. No crepitation/rhonchi Cardiovascular: Regular rate and rhythm, Normal S1,S2, No M/G/R Abdomen: Bowel Sounds Present, Soft, Non Tender, Non-Distended : No dysuria. No renal angle tenderness. No suprapubic tenderness. Extremities: No edema, Capillary Refill Less than 3 Seconds Skin: Right foot covered with Hemanth wrap bandage. Ulcer over dorsum of right foot. Musculoskeletal: Bruise over right patella. Mild tenderness over right knee over patella. ROM muscle strength and sensation could not be evaluated Neurological: Mild right facial droop. DTR 2/4. Neuroexam unobtainable as patient was given on Geodon and agitated. Psych/Mental Status: Confused. Hallucinations Review of Systems ROS Unobtainable: due to encephalopathy and due to mental condition Vital Signs Vital Signs Vital Signs: 03/13/25 15:20 03/13/25 15:24 03/13/25 15:47 Temperature 97.6 F L Temperature Source Axillary Pulse Rate 88 86 Respiratory Rate 20 H 17 Respiratory Effort Normal Non-Labored Respiratory Pattern Normal Blood Pressure 109/79 110/81 H Blood Pressure Mean 89 90 Pulse Ox 100 94 Oxygen Delivery Method Nasal Cannula Oxygen Flow Rate (L/min) 2 03/13/25 15:49 03/13/25 16:17 03/13/25 16:23 Temperature Temperature Source Pulse Rate 98 87 Respiratory Rate 22 H 23 H Respiratory Effort Respiratory Pattern Blood Pressure 117/88 H Blood Pressure Mean 97 Pulse Ox 95 98 100 Oxygen Delivery Method Nasal Cannula Nasal Cannula Oxygen Flow Rate (L/min) 2 2 03/13/25 16:30 03/13/25 16:38 03/13/25 16:45 Temperature Temperature Source Pulse Rate 90 88 85 Respiratory Rate 16 21 H 22 H Respiratory Effort Respiratory Pattern Blood Pressure Blood Pressure Mean Pulse Ox 96 92 90 Oxygen Delivery Method Oxygen Flow Rate (L/min) 03/13/25 16:49 03/13/25 17:00 03/13/25 17:15 Temperature 97.5 F L Temperature Source Axillary Pulse Rate 86 89 87 Respiratory Rate 23 H 24 H 23 H Respiratory Effort Respiratory Pattern Blood Pressure 95/70 95/70 Blood Pressure Mean 78 79 Pulse Ox 93 94 97 Oxygen Delivery Method Nasal Cannula Oxygen Flow Rate (L/min) 2 03/13/25 17:30 03/13/25 17:45 03/13/25 18:00 Temperature Temperature Source Pulse Rate 89 91 88 Respiratory Rate 16 17 25 H Respiratory Effort Respiratory Pattern Blood Pressure Blood Pressure Mean Pulse Ox 96 97 96 Oxygen Delivery Method Oxygen Flow Rate (L/min) 03/13/25 18:15 03/13/25 18:30 03/13/25 18:45 Temperature Temperature Source Pulse Rate 91 89 Respiratory Rate 22 H Respiratory Effort Respiratory Pattern Blood Pressure Blood Pressure Mean Pulse Ox 99 91 Oxygen Delivery Method Oxygen Flow Rate (L/min) 03/13/25 19:00 03/13/25 19:15 03/13/25 19:17 Temperature Temperature Source Pulse Rate 92 90 92 Respiratory Rate 18 31 H 20 H Respiratory Effort Respiratory Pattern Blood Pressure Blood Pressure Mean Pulse Ox Oxygen Delivery Method Oxygen Flow Rate (L/min) 03/13/25 19:30 03/13/25 19:45 03/13/25 20:01 Temperature Temperature Source Pulse Rate 93 85 80 Respiratory Rate 21 H 22 H 18 Respiratory Effort Respiratory Pattern Blood Pressure 97/82 H 117/97 H Blood Pressure Mean 88 106 Pulse Ox 99 Oxygen Delivery Method Oxygen Flow Rate (L/min) 03/13/25 20:27 03/13/25 20:30 03/13/25 20:45 Temperature Temperature Source Pulse Rate 88 86 89 Respiratory Rate 19 H 16 18 Respiratory Effort Respiratory Pattern Blood Pressure Blood Pressure Mean Pulse Ox 90 100 Oxygen Delivery Method Oxygen Flow Rate (L/min) 03/13/25 21:00 03/13/25 21:16 03/13/25 21:58 Temperature Temperature Source Pulse Rate 89 89 Respiratory Rate 19 H 20 H Respiratory Effort Respiratory Pattern Blood Pressure Blood Pressure Mean Pulse Ox 94 Oxygen Delivery Method Oxygen Flow Rate (L/min) 03/13/25 22:00 03/13/25 22:15 03/13/25 22:33 Temperature Temperature Source Pulse Rate 95 Respiratory Rate Respiratory Effort Respiratory Pattern Blood Pressure Blood Pressure Mean Pulse Ox 90 90 Oxygen Delivery Method Oxygen Flow Rate (L/min) 03/13/25 22:45 03/13/25 22:56 03/13/25 23:07 Temperature Temperature Source Pulse Rate Respiratory Rate Respiratory Effort Respiratory Pattern Blood Pressure 107/68 Blood Pressure Mean 80 Pulse Ox 90 90 Oxygen Delivery Method Oxygen Flow Rate (L/min) 03/13/25 23:17 03/14/25 00:30 03/14/25 00:45 Temperature Temperature Source Pulse Rate Respiratory Rate Respiratory Effort Respiratory Pattern Blood Pressure Blood Pressure Mean Pulse Ox 90 99 96 Oxygen Delivery Method Oxygen Flow Rate (L/min) 03/14/25 00:46 03/14/25 00:54 03/14/25 01:00 Temperature Temperature Source Pulse Rate 86 Respiratory Rate Respiratory Effort Respiratory Pattern Blood Pressure 84/53 L 104/84 H 104/84 H Blood Pressure Mean 61 92 90 Pulse Ox 90 95 90 Oxygen Delivery Method Nasal Cannula Oxygen Flow Rate (L/min) 2 03/14/25 01:00 03/14/25 01:15 03/14/25 01:45 Temperature Temperature Source Pulse Rate Respiratory Rate Respiratory Effort Respiratory Pattern Blood Pressure Blood Pressure Mean Pulse Ox 91 92 91 Oxygen Delivery Method Oxygen Flow Rate (L/min) 03/14/25 02:30 03/14/25 02:45 Temperature Temperature Source Pulse Rate 92 Respiratory Rate 22 H Respiratory Effort Respiratory Pattern Blood Pressure Blood Pressure Mean Pulse Ox 94 Oxygen Delivery Method Oxygen Flow Rate (L/min) Weight Weight: 165 lb Body Mass Index (BMI) 23.0 Results Lab / Micro Data 03/13/25 15:44 03/13/25 15:44 Labs: Laboratory Results - last 24 hr 03/13/25 15:25: POC Glucose 204 H 03/13/25 15:44: WBC 7.3, RBC 4.39 L, Hgb 13.7, Hct 43.4, MCV 98.9 H, MCH 31.2, M CHC 31.6 L, RDW Std Deviation 63.3 H, RDW Coeff of Maycol 17.8 H, Plt Count 296, MPV 10.3, Immature Gran % (Auto) 0.100, Neut % (Auto) 60.8, Lymph % (Auto) 30.6, [place] % (Auto) 6.3, Eos % (Auto) 1.8, Baso % (Auto) 0.4, Absolute Neuts (auto) 4.4, Absolute Lymphs (auto) 2.24, Nucleated RBC % 0, PT Cancelled, INR Cancelled, APTT Cancelled, Sodium 143, Potassium 4.3, Chloride 98, Carbon Dioxide 25.6, Anion Gap 20 H, BUN 35 H, Creatinine 1.52 H, Estim Creat Clear Calc 51.29, Est GFR (MDRD) Non-Af 51 L, BUN/Creatinine Ratio 22.8 H, Glucose 206 H, Calcium 9.4, Troponin T High Sens 81 H* D 03/13/25 17:15: PT Cancelled, INR Cancelled, APTT Cancelled 03/13/25 17:45: PT Cancelled, INR Cancelled, APTT Cancelled, Troponin T Hi Sens 2 Hr 83 H* 03/13/25 18:26: PT 18.1 H, INR 1.5, APTT 29.3 03/13/25 19:12: Ammonia 14.9 L 03/13/25 20:06: Troponin T Hi Sens 4Hr 86 H* 03/13/25 20:10: POC Glucose 131 H 03/14/25 00:43: POC Glucose 120 H Imaging Radiology Impression Head/Neck CTA 03/13/25 15:47 IMPRESSION: 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 Redemonstrated mild stenosis along the right M1 with minimal to mildly diminutive flow within right M2 and M3 distal branches compared to left. No new acute high-grade stenosis or large vessel occlusion. Large right pleural effusion and mild left pleural effusion. The critical findings in the findings and impression above were relayed directly by me by telephone to Saúl Aguilar on 03/13/2025 at 4:30 pm EST with readback verification. Reading Location: [facility] Brain CT 03/13/25 15:49 IMPRESSION: No acute, large territorial infarction. Stroke Alert: Negative The critical findings in the findings and impression above were relayed directly by me by telephone to Saúl Aguilar on 03/13/2025 at 4:22 pm EST with readback verification. Reading Location: [facility] Chest X-Ray 03/13/25 16:40 IMPRESSION: Unchanged cardiomegaly with moderate-large right pleural effusion. Reading Location: [facility] Assessment & Plan Assessment/Plan (1) Altered level of consciousness: (2) Visual hallucinations: (3) Weakness on right side of face: PLAN: Plan This 65-year-old gentleman is being admitted from intermediate as there is no bed available in [facility] where is he is accepted 1. Right-sided facial droop/RLE weakness with suspected stroke: Patient is being admitted in PCU in meantime. CT brain shows no acute intracranial abnormality/large territorial infarct. CTA was done and mentioned below PT, OT, speech therapy/swallow evaluation and management, nursing NIH stroke scale, BP and glucose monitoring and control as per stroke protocol. TSH, A1c fasting lipid profile tomorrow AM. MRI brain and 2D echo with bubble contrast study ordered 2. Type II DM with episode of hypoglycemia: Glucose was 25 in intermediate. Repeat glucose there was 250 after IM glucagon and here about 120-200. Accu- Chek Q6 hourly while NPO and ACHS if awake and eating with Humalog sliding scale coverage and hypoglycemia protocol. 3. Right moderate pleural effusion, chest x-ray shows moderate to large right pleural effusion. Pulse ox 90% on 2 L of oxygen. As per ED physician note treatment send sore throat therefore rapid strep test and flu RSV and COVID PCR ordered 4. Chronic bilateral carotid stenosis and MCA stenosis consistent with chronic atherosclerotic PAD: Head and neck CT shows chronic extensive occlusion of right ICA to distal cavernous/supraclinoid ICA segment with retrograde filling distally due to collateral. Mild stenosis along the right M1, chronic with minimal flow within right M2 and M3 distal branches. No new acute high-grade stenosis or LVO. Moderate stenosis of left ICA origin. Moderate stenosis at origin of right vertebral artery. Left vertebral artery patent. Patient on aspirin, Plavix, ezetimibe and atorvastatin continued 5. Chronic right foot ulcer with infection: Patient daptomycin on hold. ED physician discussed with Dr. Hartley who accepted the patient to the service of Dr. Thornton but there is no bed available therefore admitted. 6. Acute encephalopathy with delirium, hallucinations possible due to medication/toxic encephalopathy/infectious/metabolic encephalopathy: Hallucination was attributed to daptomycin which is on hold. Patient was given 10 mg IM Geodon in ED but is still agitated and confused. Phenergan 12.5 mg IM 1 dose ordered as needed. Patient on hydroxyzine 25 mg p.o. Q8 hourly as needed for agitation. Patient also on trazodone in intermediate. Patient complained of sore throat as per ED visit and therefore strep A PCR and COVID flu and RSV PCR ordered 7. Chronic HFrEF: Patient was last admitted in December 2024 with acute exacerbation of chronic HFrEF. -Last echo 09/19/2024 with EF of 35% with wall motion abnormalities. Patient on metoprolol succinate, torsemide 40 mg daily, and atorvastatin 8. Chronic hypoxic respiratory failure secondary to COPD: Patient on 2 L of oxygen. Incentive spirometry. DuoNeb as needed. No acute exacerbation. 9. CAD status post CABG: Troponins 81, 83 and 86 flat indeterminant but mildly elevated probably due to demand ischemia. Patient denied chest pain or shortness of breath as per ED physician. Twelve-lead EKG reviewed, NSR at 86 bpm, chronic septal infarct. Continue medications as mentioned above. 10. Chronic debility with malnutrition: Patient has decreased muscle mass/moderate atrophy of thigh and calf muscles, upper extremity and spinal muscles. BMI 23.0 kg/m? but patient is malnourished. DVT prophylaxis: High risk. Heparin 5000 subcutaneous twice daily ordered. Monitor CBC daily as patient high risk of blood loss due to triple anticoagulant. Full code unverified. CODE STATUS/advance directive could not be discussed as patient is confused or disoriented Charges/Coding Visit Charges Inpatient E&M: 50102 Init Hosp L3
--- OUTSIDE RECORDS SUMMARY | 2025-03-14 03:33 | XMS RPT_ITS ---
unspecified chronic kidney disease; Translations: [Hypertensive heart disease with heart failure] Onset: 12-09-2024 Chronic Malaise and fatigue (2 sources) Asthenia; Translations: [Weakness] Onset: 12-26-2024 11-22-2024 Episodic Nonspecific chest pain (20 sources) Chest discomfort; Translations: [Other chest pain] Onset: 01-03-2025 06-27-2024 Episodic Occlusion or stenosis of precerebral arteries (20 sources) Right carotid artery stenosis; Translations: [Occlusion and stenosis of right carotid artery] Onset: 10-18-2024 Chronic Other aftercare (16 sources) Surgical follow-up; Translations: [Encounter for surgical aftercare following surgery on the circulatory system] 05-17-2024 Episodic Other aftercare (2 sources) senior care (current) use of insulin; Translations: [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] Onset: 12-09-2024 Episodic Other aftercare (1 source) Encounter for other specified aftercare; Translations: [Encounter for other specified aftercare] Onset: 11-14-2024 Episodic Other and ill-defined heart disease (16 [...] of the circulatory system] 10-23-2024 Episodic Other circulatory disease (1 source) Hypotension, unspecified; Translations: [Hypotension, unspecified hypotension type] Onset: 02-14-2025 Episodic Other connective tissue disease (16 sources) [...] body region, initial encounter] 10-21-2024 Episodic Other injuries and conditions due to external causes (1 source) Other injury of unspecified body region, initial encounter; Translations: [Wound infection] Onset: 02-14-2025 Episodic Other liver diseases (20 sources) Steatosis [...] walking, not elsewhere classified] 11-22-2024 Chronic Other nervous system disorders (1 source) Toxic metabolic encephalopathy; Translations: [Toxic metabolic encephalopathy] Onset: 12-20-2024 12-20-2024 Episodic Other nutritional; endocrine; and metabolic disorders [...] other endocrine, nutritional and metabolic disease] Onset: 12-26-2024 Episodic Other nutritional; endocrine; and metabolic disorders [...] caused by tuberculosis or sexually transmitted disease) (2 sources) Pneumonia; Translations: [Pneumonia, unspecified organism] Onset: 12-20-2024 12-20-2024 Episodic Residual codes; unclassified (20 sources) Noncompliance with medication regimen; Translations: [Patient's other noncompliance with medication regimen] 06-14-2018 Episodic Residual codes; unclassified (9 sources) Peripheral edema; Translations: [Localized edema] 10-23-2024 Episodic Residual codes; unclassified (2 sources) Edema of lower extremity; Translations: [Localized edema] 11-16-2024 Episodic Residual codes; unclassified (1 source) At risk of delirium; Translations: [Other specified personal risk factors, not elsewhere classified] Onset: 12-20-2024 12-20-2024 Episodic Residual codes; unclassified (1 source) Altered mental status, unspecified; Translations: [Altered mental status, unspecified] Onset: 12-26-2024 Episodic Residual codes; unclassified (1 source) Localized edema; Translations: [Localized edema] Onset: 12-26-2024 Episodic Respiratory failure; insufficiency; arrest (adult) (1 source) Chronic hypoxemic respiratory failure; Translations: [Chronic respiratory failure with hypoxia] Onset: 12-20-2024 12-20-2024 Chronic Respiratory failure; insufficiency; arrest (adult) (20 sources) Acute hypoxemic respiratory failure; Translations: [Acute respiratory failure with hypoxia] Onset: 06-24-2024 06-27-2024 Episodic Septicemia (except in labor) (2 sources) Sepsis, unspecified organism; Translations: [Severe sepsis without septic shock] Onset: 12-26-2024 Episodic Skin and subcutaneous tissue infections (20 sources) Cellulitis; Translations: [Cellulitis, unspecified] Onset: 12-09-2024 03-09-2022 Episodic Spondylosis; intervertebral disc disorders; other back problems (20 sources) Backache; Translations: [Dorsalgia, unspecified] 07-06-2020 Episodic Substance-related disorders (20 sources) Nicotine dependence; Translations: [Nicotine dependence, unspecified, uncomplicated] Onset: 10-18-2024 Chronic Superficial injury; contusion (20 sources) Contusion of foot; Translations: [Contusion of left foot, initial encounter] 05-21-2022 Episodic Unclassified (8 sources) Type 2 diabetes mellitus without complication; Translations: [Uncontrolled type 2 diabetes mellitus without complication, without long-term current use of insulin] Onset: 10-09-2015 10-09-2015 Unclassified (1 source) Cough, unspecified; Translations: [Cough, unspecified] Onset: 12-09-2024 Unclassified (1 source) Wound Check Onset: 02-14-2025 Urinary tract infections (20 sources) Urinary tract infectious disease; Translations: [Urinary tract infection, site not specified] 08-13-2020 Episodic Viral infection (20 sources) Disease caused by 2019-nCoV; Translations: [COVID-19] 07-18-2021 Episodic Past or Other Problems Problem Classification Problem Date Documented Date Episodic/Chronic Abdominal hernia (17 sources) Umbilical hernia; Translations: [Umbilical hernia without [...] abnormalities of breathing] Onset: 06-24-2024 Episodic Other skin disorders (1 source) Changes in skin texture; Translations: [Changes in skin texture] Onset: 05-31-2024 Episodic Screening and history of mental health and substance abuse codes (1 source) Personal history of nicotine dependence; Translations: [Personal history of nicotine dependence] Onset: 06-06-2024 Episodic Results Test Name Value Interpretation Reference Range Facility [facility] 02-15-2025 [facility] HNO ID: [id number] Author: MIAN VARELA RT(R) Service: Radiology Author Type: Online Merchandising Specialist Type: Allied Health Filed: 02/15/2025 02:20 Note Text: Radiology Service Progress Note PATIENT NAME: Jaylen Mejia DATE OF SERVICE: February 15, 2025 TIME: 2:20 AM PATIENT IDENTITY VERIFICATION COMPLETED USING TWO (2) IDENTIFIERS: Name and Date of confirmed by patient verbally and Name and Date of confirmed by identification band. FALL SCREENING: Has the patient had 2 falls in the last year or 1 fall with injury or currently using an Ambulatory Assistive Device (Walker, Cane, Wheelchair, Crutches, etc.)? Inpatient: Screened on floor PATIENT GENDER DATA: Assigned male at PATIENT RELEVANT IMPLANT DATA REVIEWED: Not Applicable PATIENT PRESENTS WITH AN IMPLANTABLE OR ATTACHED STAGE SET UP WORKER: No RADIOLOGY DEPARTMENT: Ultrasound Chest Survey PERIPHERAL IV DATA: Not applicable SIGNED BY: RT Ugo(R) February 15, 2025 2:20 AM Normal [facility] CBC panel Auto (Bld)on 02-15 Erythrocyte distribution width (RBC) [Ratio] 17.9 % High 11.5-15.0 [facility] Comment on above: Order Comment: Concetta coronado Type: BLOOD SPECIMEN Ordering Facility: [facility] Address: [address] [place] [address] Performed By: #### 5 8410-2 #### [facility] CLIA [id number] [address] STATES OF [facility] Hematocrit (Bld) [Volume fraction] 35.6 % Low 39.0-51.0 [facility] Comment on above: Order Comment: Concetta coronado Type: BLOOD SPECIMEN Ordering Facility: [facility] Address: [address] [place] [address] Performed By: #### 5 8410-2 #### [facility] CLIA [id number] [address] [place] Hemoglobin (Bld) [Mass/Vol] 11.3 g/dL Low 13.0-17.0 [facility] Comment on above: Order Comment: Concetta coronado Type: BLOOD SPECIMEN Ordering Facility: [facility] Address: [address] [place] [address] Performed By: #### 5 8410-2 #### [facility] CLIA [id number] [address] [place] MCH (RBC) [Entitic mass] 29.9 pg Normal 26.0-34.0 [facility] Comment on above: Order Comment: Speci men Type: BLOOD SPECIMEN Ordering Facility: [facility] Address: [address] [place] [address] Performed By: #### 5 8410-2 #### [facility] CLIA [id number] [address] MCHC (RBC) [Mass/Vol] 31.7 g/dL Normal 30.5-36.0 [facility] Comment on above: Order Comment: Speci men Type: BLOOD SPECIMEN Ordering Facility: [facility] Address: [address] [place] [address] Performed By: #### 5 8410-2 #### [facility] CLIA [id number] [address] MCV (RBC) [Entitic vol] 94.2 fL Normal 80.0-100.0 [facility] Comment on above: Order Comment: Speci men Type: BLOOD SPECIMEN Ordering Facility: [facility] Address: [address] [place] [address] Performed By: #### 5 8410-2 #### [facility] CLIA [id number] [address] STATES [facility] Nucleated RBC (Bld) [#/Vol] 10*3/uL Normal <0.01 [facility] Comment on above: Order Comment: Speci men Type: BLOOD SPECIMEN Ordering Facility: [facility] Address: [address] [place] [address] Performed By: #### 5 8410-2 #### [facility] CLIA [id number] [address] Platelet mean volume (Bld) [Entitic vol] 9.4 fL Normal 9.0-12.7 [facility] Comment on above: Order Comment: Speci men Type: BLOOD SPECIMEN Ordering Facility: [facility] Address: [address] [place] [address] Performed By: #### 5 8410-2 #### [facility] CLIA [id number] [address] [place] Platelets (Bld) [#/Vol] 250 10*3/uL Normal 150-400 [facility] Comment on above: Order Comment: Speci men Type: BLOOD SPECIMEN Ordering Facility: [facility] Address: [address] [place] [address] Performed By: #### 5 8410-2 #### [facility] CLIA [id number] [address] [place] RBC (Bld) [#/Vol] 3.78 10*6/uL Low 4.20-6.00 [facility] Comment on above: Order Comment: Speci men Type: BLOOD SPECIMEN Ordering Facility: [facility] Address: [address] [place] [address] Performed By: #### 5 8410-2 #### [facility] CLIA [id number] [address] [place] WBC (Bld) [#/Vol] 8.94 10*3/uL Normal 3.70-11.00 [facility] Comment on above: Order Comment: Speci men Type: BLOOD SPECIMEN Ordering Facility: [facility] Address: [address] [place] [address] Performed By: #### 5 8410-2 #### [facility] CLIA [id number] [address] [place] Erythrocyte distribution width (RBC) [Ratio] 18.1 % High 11.5-15.0 [facility] Comment on above: Order Comment: Speci men Type: BLOOD SPECIMEN Ordering Facility: [facility] Address: [address] [place] [address] Performed By: #### 3 3959-8, 6-3, 33674-1, 08501-9, 1987-5, 98151-9 #### [facility] CLIA [id number] [address] Hematocrit (Bld) [Volume fraction] 37.0 % Low 39.0-51.0 [facility] Comment on above: Order Comment: Speci men Type: BLOOD SPECIMEN Ordering Facility: [facility] Address: [address] [place] [address] Performed By: #### 3 3959-8, 6-3, 04658-0, 52943-5, 1987-08, #### [facility] CLIA [id number] [address] [place] [address] [place] Hemoglobin (Bld) [Mass/Vol] 11.7 g/dL Low 13.0-17.0 [facility] Comment on above: Order Comment: Speci men Type: BLOOD SPECIMEN Ordering Facility: [facility] Address: [address] [place] [address] Performed By: #### 3 3959-8, 6-3, 55929-1, 12152-2, 1987-08, #### [facility] CLIA [id number] [address] [place] [address] [place] MCH (RBC) [Entitic mass] 30.1 pg Normal 26.0-34.0 [facility] Comment on above: Order Comment: Speci men Type: BLOOD SPECIMEN Ordering Facility: [facility] Address: [address] [place] [address] Performed By: #### 3 3959-8, 3015-3, 91227-0, 49098-0, 1987-08, #### [facility] CLIA [id number] [address] [place] [address] [place] MCHC (RBC) [Mass/Vol] 31.6 g/dL Normal 30.5-36.0 [facility] Comment on above: Order Comment: Speci men Type: BLOOD SPECIMEN Ordering Facility: [facility] Address: [address] [place] [address] Performed By: #### 3 3959-8, 3016-3, 60441-1, 82856-9, 1987-08, #### [facility] CLIA [id number] [address] [place] MCV (RBC) [Entitic vol] 95.1 fL Normal 80.0-100.0 [facility] Comment on above: Order Comment: Speci men Type: BLOOD SPECIMEN Ordering Facility: [facility] Address: [address] [place] [address] Performed By: #### 3 3959-8, 3016-3, 20494-7, 17002-6, 1987-08, #### [facility] CLIA [id number] [address] [place] [address] [place] Nucleated RBC (Bld) [#/Vol] 10*3/uL Normal <0.01 [facility] Comment on above: Order Comment: Speci men Type: BLOOD SPECIMEN Ordering Facility: [facility] Address: [address] [place] [address] Performed By: #### 3 3959-8, 3016-3, 28017-3, 85271-8, 1987-08, #### [facility] CLIA [id number] [address] [place] [address] [place] Platelet mean volume (Bld) [Entitic vol] 9.5 fL Normal 9.0-12.7 [facility] Comment on above: Order Comment: Speci men Type: BLOOD SPECIMEN Ordering Facility: [facility] Address: [address] [place] [address] Performed By: #### 3 3959-8, 3016-3, 84232-5, 68068-7, 1987-08, #### [facility] CLIA [id number] [address] [place] [address] [place] Platelets (Bld) [#/Vol] 269 10*3/uL Normal 150-400 [facility] Comment on above: Order Comment: Speci men Type: BLOOD SPECIMEN Ordering Facility: [facility] Address: [address] [place] [address] Performed By: #### 3 3959-8, 3016-3, 83075-6, 87952-4, 1987-08, #### [facility] CLIA [id number] [address] [place] [address] [place] RBC (Bld) [#/Vol] 3.89 10*6/uL Low 4.20-6.00 [facility] Comment on above: Order Comment: Speci men Type: BLOOD SPECIMEN Ordering Facility: [facility] Address: [address] [place] [address] Performed By: #### 3 3959-8, 3016-3, 28034-5, 38221-7, 1987-08, #### [facility] CLIA [id number] [address] [place], [place] [id number] [place] [address] OF [facility] WBC (Bld) [#/Vol] 10.13 10*3/uL Normal 3.70-11.00 [facility] Comment on above: Order Comment: Speci men Type: BLOOD SPECIMEN Ordering Facility: [facility] Address: [facility] [place] [address] Performed By: #### 3 3959-8, 3016-3, 19669-3, 38338-5, 1987-08, #### [facility] CLIA [id number] [address] [place] [address] [facility] CONSULTon 02-15-2025 CONSULT HNO ID: [id number] Author: MALICK ANDERSON MD Service: Critical Care Author Type: Physician Type: Consults Filed: 02/15/2025 10:36 Note Text: Critical Care: INPATIENT INITIAL CONSULTATION Admit Date: 02/14/2025 SERVICE DATE: 02/15/2025 REASON FOR CONSULT: Hypotension REQUESTING PHYSICIAN: Nathanael Mckeon MD PRIMARY CARE PHYSICIAN: Xiang Rogers DO, DO Assessment/Plan ASSESSMENT: Principal Problem: Wound infection/cellulitis of left foot (POA: Yes) Active Problems: Type 2 diabetes mellitus with hyperglycemia, with long-term current use of insulin ([facility]) (POA: Yes) Primary hypertension (POA: Yes) Mixed hyperlipidemia (POA: Yes) Peripheral arterial disease (POA: Yes) Chronic obstructive pulmonary disease (HCC) (POA: Yes) Coronary artery disease involving [place] heart without angina pectoris (POA: Yes) 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 (HCC) (POA: Yes) HFrEF (heart failure with reduced ejection fraction) ([facility]) (POA: Yes) Moderate mitral valve insufficiency (POA: Yes) Moderate to severe aortic valve stenosis (POA: Yes) Chronic anemia (POA: Yes) Hypoxia (POA: Yes) Lactate blood increase (POA: Yes) improved Right pleural effusion, POA: Yes hypotension, POA: Yes Plan: Podiatry, ID following, on wide coverage antibiotics O2 as needed Asymptomatic hypotension, will give another dose of 25 g IV albumin and add midodrine Watch for any fluid overload On baby aspirin, clopidogrel, atorvastatin Consider DVT prophylaxis Will add as needed bronchodilators CODE STATUS: Full code No need for ICU transfer at this point, to let us know if any change in clinical situation Patient/Family Updated: Discussed with patient Discussed with Dr. Mckeon and medical staff Subjective HPI: 65-year-old male with history of COPD, asthma, DM2, GERD, HTN, HLD, CAD/CABG, HFrEF, PVD, s/p carotid endarterectomy, admitted to [facility] 02/14 for left foot wound infection, hypotensive on admission and was given 2 L fluid boluses, last night was hypotensive and given 25 g of IV albumin, then this morning dropped down again to 82/45 with MAP of 65 and I was called by Dr. Mckeon to evaluate patient if any ICU need 02/15: Patient seen on 2 L O2, awake and alert appropriate, denies any fever or chills, no chest pain or palpitation, denies any dizziness or weakness, baseline short of breath not much cough, denies nausea vomiting, making urine, left foot wound with infection, being dressed PAST MEDICAL HISTORY: PAST MEDICAL HISTORY Diagnosis Date Arthritis Asthma (HCC) Carotid atherosclerosis Coronary artery disease Diabetes mellitus type 2 in obese GERD (gastroesophageal reflux disease) History of non-ST elevation myocardial infarction (NSTEMI) 06/11/[address] [place] [address] Herrera Valles Hypertension Other emphysema (HCC) Pancreatitis (HCC) Stenosis of right carotid artery Tobacco use disorder PAST SURGICAL HISTORY: PAST SURGICAL HISTORY Procedure Laterality Date CAROTID ENDARTERECTOMY Right 01/06/2014 CORONARY ARTERY BYPASS GRAFT 2007 LEFT HEART CATH,PERCUTANEOUS 06/11/2018 RPR 1ST INGUN HRNA AGE 5 YRS/> REDUCIBLE 01/20/2017 Hernia repair, inguinal left IMMUNIZATION HISTORY: Immunization History Administered Date(s) Administered Comments influenza (IIV4) vaccine, age 6 mo - 64 yr, quadrivalent (AFLURIA, FLULAVAL, FLUZONE) 12/23/2016 pneumococcal polysaccharide (PPV23) vaccine, 23 valent (PNEUMOVAX 23) 10/09/2015 FAMILY HISTORY: FAMILY HISTORY Problem Relation Age of Onset Diabetes Mother Hypertension Father Diabetes Father Asthma Father Alcohol abuse Father Arthritis Father Heart disease Father Hyperlipidemia Father Stroke Father Lung Cancer Father None Sister Heart Attack Paternal Grandfather Diabetes Paternal Uncle SOCIAL HISTORY: SOCIAL HISTORY[1] OCCUPATION: Employer And Job Title: None on file Years Of Education Completed: Not specified Marital Status: MEDICATIONS: Current Facility-Administered Medications Medication Dose Route Frequency cefepime 2 g in D5W 100 mL Vial-Bag (MAXIPIME) 2 g INTRAVENOUS q 8 H vancomycin dosing and monitoring per pharmacy OTHER As Directed NaCl 0.9% iv flush bag 20 mL INTRAVENOUS PRN vancomycin iv piggyback 1 g in D5W 200 mL (VANCOCIN) 0.015 g/kg/dose INTRAVENOUS q 12 HR dextrose 40 % 15 g 15 g ORAL PRN Or glucagon 1 mg injection 1 mg INTRAMUSCULAR PRN Or dextrose 10% iv bolus 12.5 g INTRAVENOUS PRN insulin lispro injection (rapid acting) (ADMElog) SUBCUTANEOUS w MEALS acetaminophen 500-1,000 mg tab(s) (TYLENOL) 500-1,000 mg ORAL q 6 H PRN oxyCODONE IR 5 mg tab(s) (ROXICODONE) 5 mg ORAL q 6 H PRN aspirin 81 mg chewable tab(s) 81 mg ORAL DAILY atorvastatin 40 mg tab(s) (LIPITOR) 40 mg ORAL AT BEDTIME clopidogrel 75 mg tab(s) (PLAVIX) 75 mg ORAL DAILY ezetimibe 10 mg tab(s) (ZETIA) 10 mg ORAL DAILY i (more content not included)... [facility] CONSULT HNO ID: [id number] Author: CELE PORTER DPM Service: Podiatry Author Type: Physician Type: Consults Filed: 02/15/2025 07:55 Note Text: Foot and Ankle Consult Note ASSESSMENT: 65 year old male with past medical history significant for HFrEF, T2DM, HLD, CAD, PAD history cigarette smoking admitted from ED after wound center visit due to increased drainage from left foot wound and constitutional symptoms. Patient with mild tachycardia on admission, no leukocytosis and afebrile. Clinically left foot wound appears to be acutely infected with seropurulent drainage, malodor and periwound erythema. There is exposed deep tendon structures within wound base. PLAN AND RECOMMENDATIONS: - Recommend MRI of the left foot to assess for deep infection. Will likely need surgical debridement at minimum following result. - Appreciate infectious disease and vascular surgery recommendations. -Recommend daily dressing changes to the right dorsal foot wound with Adaptic followed by Dakin's wet-to-dry dressing. Dakin's ordered today to be used at patient's bedside during dressing changes. - WBAT to LLE. Use of post op shoe while ambulating. Ok to use walker, crutches, or other assistive device(s) to use the restroom or for Physical Therapy. - Antibiotics per primary team/ID recommendations. Wound culture obtained yesterday is pending. - Pain management per primary team. HPI: Patient is a 65 year old male with past medical history significant for HFrEF, T2DM, HLD, CAD, PAD history cigarette smoking admitted from ED after wound center visit due to increased drainage from left foot wound and constitutional symptoms. He is known to me from the wound center and prior to this my private office. He was recently mated to [facility] and was seen by one of my partners for the same issue. He subsequently went to SNF and was where they have been applying wound VAC with minimal improvement in patient's wound appearance. Prior to clinical worsening of the wound this week and plans for possible outpatient operative debridement and graft application in the coming weeks however due to presence of significant infection he was sent to the ED foradmission. Denies any known fevers but does endorse chills and shortness of breath. PAST MEDICAL HISTORY Diagnosis Date Arthritis Asthma (HCC) Carotid atherosclerosis Coronary artery disease Diabetes mellitus type 2 in obese GERD (gastroesophageal reflux disease) History of non-ST elevation myocardial infarction (NSTEMI) 06/11/[address] [place] [address]. Herrera Valles Hypertension Other emphysema (HCC) Pancreatitis (HCC) Stenosis of right carotid artery Tobacco use disorder PAST SURGICAL HISTORY Procedure Laterality Date CAROTID ENDARTERECTOMY Right 01/06/2014 CORONARY ARTERY BYPASS GRAFT 2007 LEFT HEART CATH,PERCUTANEOUS 06/11/2018 RPR 1ST INGUN HRNA AGE 5 YRS/> REDUCIBLE 01/20/2017 Hernia repair, inguinal left Current Facility-Administered Medications Medication Dose Route Frequency cefepime 2 g in D5W 100 mL Vial-Bag (MAXIPIME) 2 g INTRAVENOUS q 8 H vancomycin dosing and monitoring per pharmacy OTHER As Directed NaCl 0.9% iv flush bag 20 mL INTRAVENOUS PRN vancomycin iv piggyback 1 g in D5W 200 mL (VANCOCIN) 0.015 g/kg/dose INTRAVENOUS q 12 HR dextrose 40 % 15 g 15 g ORAL PRN Or glucagon 1 mg injection 1 mg INTRAMUSCULAR PRN Or dextrose 10% iv bolus 12.5 g INTRAVENOUS PRN insulin lispro injection (rapid acting) (ADMElog) SUBCUTANEOUS w MEALS acetaminophen 500-1,000 mg tab(s) (TYLENOL) 500-1,000 mg ORAL q 6 H PRN oxyCODONE IR 5 mg tab(s) (ROXICODONE) 5 mg ORAL q 6 H PRN aspirin 81 mg chewable tab(s) 81 mg ORAL DAILY atorvastatin 40 mg tab(s) (LIPITOR) 40 mg ORAL AT BEDTIME clopidogrel 75 mg tab(s) (PLAVIX) 75 mg ORAL DAILY ezetimibe 10 mg tab(s) (ZETIA) 10 mg ORAL DAILY insulin glargine 14 Units pen (long acting) 14 Units SUBCUTANEOUS AT BEDTIME pantoprazole DR 40 mg tab(s) (PROTONIX) 40 mg ORAL DAILY (6 AM) lactated ringers 500 mL iv bolus 500 mL INTRAVENOUS ONCE ALLERGIES Allergen Reactions Amoxicillin Angioedema Previously tolerated cefepime x 5 days (12/24/24 - 12/29/24). [place] Rash Lodine [Etodolac] GI Upset FAMILY HISTORY Problem Relation Age of Onset Diabetes Mother Hypertension Father Diabetes Father Asthma Father Alcohol abuse Father Arthritis Father Heart disease Father Hyperlipidemia Father Stroke Father Lung Cancer Father None Sister Heart Attack Paternal Grandfather Diabetes Paternal Uncle SOCIAL HISTORY[1] REVIEW OF SYSTEMS: General: chills Skin: Large right dorsal foot wound Eyes: no blurred or double vision or eye pain Cardiac: denies chest pain, heart palpitations or orthopnea Pulmonary: dyspnea GI: denies nausea, vomiting, diarrhea or constipation Neuro: denies numbnes/tingling in hands or feet Musc: denies history of upper or lower extremity w (more content not included)... Normal [facility] Comprehensive metabolic 2000 panelon 02-15-2025 Albumin [Mass/Vol] 3.8 g/dL Low 3.9-4.9 [facility] Comment on above: Order Comment: Speci men Type: BLOOD SPECIMEN Ordering Facility: [facility] Address: [address] [place] [address] Performed By: #### 3 3959-8, 3016-3, 24356-0, 60631-5, 1987-08, #### [facility] CLIA [id number] [address] [place] [address] [place] ALP [Catalytic activity/Vol] 162 U/L High 38-113 [facility] Comment on above: Order Comment: Speci men Type: BLOOD SPECIMEN Ordering Facility: [facility] Address: [address] [place] [address] Performed By: #### 3 3959-8, 3016-3, 74333-7, 51543-1, 1987-08, #### [facility] CLIA [id number] [address] [place] [address] [place] ALT [Catalytic activity/Vol] 23 U/L Normal 10-54 [facility] Comment on above: Order Comment: Speci men Type: BLOOD SPECIMEN Ordering Facility: [facility] Address: [address] [place] [address] Performed By: #### 3 3959-8, 6-3, 26992-7, 28409-2, 1987-08, #### [facility] CLIA [id number] [address] [place] [address] [place] Anion gap [Moles/Vol] 14 mmol/L Normal 8-15 [facility] Comment on above: Order Comment: Speci men Type: BLOOD SPECIMEN Ordering Facility: [facility] Address: [address] [place] [address] Performed By: #### 3 3959-8, 6-3, 31694-4, 26854-2, 1987-08, #### [facility] CLIA [id number] [address] STATES [facility] AST [Catalytic activity/Vol] 22 U/L Normal 14-40 [facility] Comment on above: Order Comment: Speci men Type: BLOOD SPECIMEN Ordering Facility: [facility] Address: [address] [place] [address] Performed By: #### 3 3959-8, 3016-3, 31616-4, 02129-8, 1987-08, #### [facility] CLIA [id number] [address] [place] [address] [place] Bilirubin [Mass/Vol] 1.0 mg/dL Normal 0.2-1.3 [facility] Comment on above: Order Comment: Speci men Type: BLOOD SPECIMEN Ordering Facility: [facility] Address: [address] [place] [address] Performed By: #### 3 3959-8, 3016-3, 70458-1, 28183-9, 1987-08, #### [facility] CLIA [id number] [address] [place] [address] [place] Calcium [Mass/Vol] 9.5 mg/dL Normal 8.5-10.2 [facility] Comment on above: Order Comment: Speci men Type: BLOOD SPECIMEN Ordering Facility: [facility] Address: [address] [place] [address] Performed By: #### 3 3959-8, 3016-3, 44639-3, 12501-0, 1987-08, #### [facility] CLIA [id number] [address] [place] [address] [place] Chloride [Moles/Vol] 96 mmol/L Low 98-107 [facility] Comment on above: Order Comment: Speci men Type: BLOOD SPECIMEN Ordering Facility: [facility] Address: [address] [place] [address] Performed By: #### 3 3959-8, 3016-3, 24640-2, 48735-7, 1987-08, #### [facility] CLIA [id number] [address] [place] [address] [place] CO2 [Moles/Vol] 25 mmol/L Normal 22-30 [facility] Comment on above: Order Comment: Speci men Type: BLOOD SPECIMEN Ordering Facility: [facility] Address: [address] [place] [address] Performed By: #### 3 3959-8, 3016-3, 51363-4, 03877-2, 1987-08, #### [facility] CLIA [id number] [address] [place] [address] [place] Creatinine [Mass/Vol] 1.01 mg/dL Normal 0.73-1.22 [facility] Comment on above: Order Comment: Concetta coronado Type: BLOOD SPECIMEN Ordering Facility: [facility] Address: [address] [place] [address] Performed By: #### 3 3959-8, 3016-3, 82971-3, 56870-8, 1987-08, #### [facility] CLIA [id number] [address] [place] [address] [place] eGFRcr SerPlBld CKD-EPI 2020 83 mL/min/1.73m??? Normal >=60 [facility] Comment on above: Order Comment: Concetta coronado Type: BLOOD SPECIMEN Ordering Facility: [facility] Address: [address] [place] [address] Result Comment: Matilda mated Glomerular Filtration Rate (eGFR) is calculated using the 2020 CKD-EPI creatinine equation. This equation utilizes serum creatinine, sex, and age as parameters. The creatinine assay has traceable calibration to isotope dilution-mass spectrometry. Refer to KDIGO guidelines for clinical interpretation. In patients with unstable renal function, e.g. those with acute kidney injury, the eGFR may not accurately reflect actual GFR. Performed By: #### 3 3959-8, 3016-3, 21814-0, 24820-1, 1987-08, #### [facility] CLIA [id number] [address] [place] [address] [place] Glucose [Mass/Vol] 179 mg/dL High 74-99 [facility] Comment on above: Order Comment: Concetta coronado Type: BLOOD SPECIMEN Ordering Facility: [facility] Address: [address] [place] [address] Result Comment: The [place] [employer] (ADA) provides guidance for cutoff values for fasting glucose and random glucose. The ADA defines fasting as no caloric intake for at least 8 hours. Fasting plasma glucose results between 100 to 125 mg/dL indicate increased risk for diabetes (prediabetes). Fasting plasma glucose results greater than or equal to 126 mg/dL meet the criteria for diagnosis of diabetes. In the absence of unequivocal hyperglycemia, results should be confirmed by repeat testing. In a patient with classic symptoms of hyperglycemia or hyperglycemic crisis, random plasma glucose results greater than or equal to 200 mg/dL meet the criteria for diagnosis of diabetes. Reference: Standards of Medical Care in Diabetes 2016, [place] [employer]. Diabetes Care. 2016.39(Suppl 1). Performed By: #### 3 3959-8, 3016-3, 70093-7, 85228-1, 1987-08, #### [facility] CLIA [id number] [address] [place] [address] [place] Potassium [Moles/Vol] 4.1 mmol/L Normal 3.7-5.1 [facility] Comment on above: Order Comment: Concetta coronado Type: BLOOD SPECIMEN Ordering Facility: [facility] Address: [address] [place] [address] Performed By: #### 3 3959-8, 6-3, 88512-5, 98091-3, 1987-08, #### [facility] CLIA [id number] [address] [place] [address] [place] Protein [Mass/Vol] 7.3 g/dL Normal 6.3-8.0 [facility] Comment on above: Order Comment: Concetta coronado Type: BLOOD SPECIMEN Ordering Facility: [facility] Address: [address] [place] [address] Performed By: #### 3 3959-8, 6-3, 49526-8, 38424-5, 1987-08, #### [facility] CLIA [id number] [address] [place] [address] [place] Sodium [Moles/Vol] 135 mmol/L Low 136-144 [facility] Comment on above: Order Comment: Concetta coronado Type: BLOOD SPECIMEN Ordering Facility: [facility] Address: [address] [place] [address] Performed By: #### 3 3959-8, 6-3, 42047-0, 10736-2, 1987-08, #### [facility] CLIA [id number] [address] [place] [address] [place] Urea nitrogen [Mass/Vol] 27 mg/dL High 9-24 [facility] Comment on above: Order Comment: Speci men Type: BLOOD SPECIMEN Ordering Facility: [facility] Address: [address] [place], [place] [address] Performed By: #### 3 3959-8, 3016-3, 58735-6, 20960-0, 1987-08, #### [facility] CLIA [id number] [address] [place] [address] [place] [facility] [place] Lactate (Bld) [Moles/Vol]on 02-15-2025 Lactate [Moles/Vol] 1.9 mmol/L Normal 0.5-2.2 [facility] Comment on above: Order Comment: Speci men Type: BLOOD SPECIMEN Ordering Facility: [facility] Address: [address] [place] [address] Performed By: #### 3 3959-8, 3016-3, 21753-2, 96131-6, 1987-08, #### [facility] CLIA [id number] [address] [place] [address] [place] Lactate [Moles/Vol] 2.9 mmol/L High 0.5-2.2 [facility] Comment on above: Order Comment: Speci men Type: BLOOD SPECIMEN Ordering Facility: [facility] Address: [address] [place] [address] Performed By: #### 3 3959-8, 3016-3, 60276-5, 50097-5, 1987-08, #### [facility] CLIA [id number] [address] [place] NURSING PROGon 02-15-2025 NURSING PROG HNO ID: [id number] Author: JILLIAN STYLES RN Service: Nursing Author Type: Registered Nurse Type: Nursing Progress Note Filed: 02/15/2025 11:33 Note Text: Other: Linda called for update this nurse was busy. Message took from [facility] and this nurse did try to return call for update no answer. Will try again later Normal [facility] STAPHYLOCOCCUS AUREUS AND MR SA SCREEN, PCR, NASALon 02-15-2025 S. aureus and MRSA panel HAYDER+probe (Nose) Methicillin-SUSCEPTIBLE Staphylococcus aureus Detected Abnormal Not Detected [facility] Comment on above: Order Comment: Speci men Type: BLOOD SPECIMEN Ordering Facility: [facility] Address: [address] [place] [address] Performed By: #### 3 3959-8, 3016-3, 24294-6, 81839-7, 1987-5, 87051-9 #### [facility] CLIA [id number] [address] [place] [address] [facility] THERAPY NTon 02-15-2025 THERAPY NT HNO ID: [id number] Author: LEAH LANDIS OT/L Service: Occupational Therapy Author Type: Occupational Therapist Type: Therapy (PT/OT/Speech/Resp) Filed: 02/15/2025 12:48 Note Text: Summary: OT Missed Visit OCCUPATIONAL THERAPY MISSED VISIT SERVICE DATE: 02/15/2025 SERVICE TIME: 1242 ROOM: [place] [address] Patient not seen due to Clinical Appropriateness. Per podiatry consult note 02/15/25 pt is WBAT to LLE with use of post op shoe while ambulating. Podiatry notified via secure chat of need for formal weight bearing order. No post-op shoe in pt's room on approach. Will re-attempt as schedule allows pending post-op shoe obtained and formal weight bearing orders placed. SIGNATURE: SLOAN Foote PATIENT NAME: Jaylen Mejia DATE: February 15, 2025 TIME: 12:45 PM Normal [facility] URINALYSIS, REFLEX MICROSCOP ICon 02-15-2025 Bilirubin Ql (U) Negative Normal Negative [facility] Comment on above: Order Comment: Speci men Type: BLOOD SPECIMEN Ordering Facility: [facility] Address: [address] [place] [address] Performed By: #### 3 3959-8, 3016-3, 92839-2, 44540-1, 1987-08, #### [facility] CLIA [id number] [address] OF [place] Clarity (Unsp spec) Clear Normal Clear [facility] Comment on above: Order Comment: Speci men Type: BLOOD SPECIMEN Ordering Facility: [facility] Address: [address] [place] [address] Performed By: #### 3 3959-8, 3016-3, 71942-4, 56220-4, 1987-08, #### [facility] CLIA [id number] [address] STATES OF [facility] Color (U) Yellow Normal Yellow [facility] Comment on above: Order Comment: Speci men Type: BLOOD SPECIMEN Ordering Facility: [facility] Address: [address] [place] [address] Performed By: #### 3 3959-8, 3016-3, 42708-2, 66173-7, 1987-08, #### [facility] CLIA [id number] [address] [place] Glucose Test strip (U) [Mass/Vol] 2+ Abnormal Negative [facility] Comment on above: Order Comment: Speci men Type: BLOOD SPECIMEN Ordering Facility: [facility] Address: [address] [place] [address] Performed By: #### 3 3959-8, 3016-3, 26472-3, 74386-6, 1987-08, #### [facility] CLIA [id number] [address] [place] Hemoglobin Ql (U) Negative Normal Negative [facility] Comment on above: Order Comment: Speci men Type: BLOOD SPECIMEN Ordering Facility: [facility] Address: [address] [place] [address] Performed By: #### 3 3959-8, 3016-3, 28808-9, 26209-6, 1987-08, #### [facility] CLIA [id number] [address] STATES [facility] Ketones Ql (U) Negative Normal Negative [facility] Comment on above: Order Comment: Speci men Type: BLOOD SPECIMEN Ordering Facility: [facility] Address: [address] [place] [address] Performed By: #### 3 3959-8, 3016-3, 32480-1, 92017-5, 1987-08, #### [facility] CLIA [id number] [address] [place] Leukocyte esterase Test strip Ql (U) Negative Normal Negative [facility] Comment on above: Order Comment: Speci men Type: BLOOD SPECIMEN Ordering Facility: [facility] Address: [address] [place] [address] Performed By: #### 3 3959-8, 3016-3, 20674-1, 91139-0, 1987-08, #### [facility] CLIA [id number] [address] Nitrite Ql (U) Negative Normal Negative [facility] Comment on above: Order Comment: Speci men Type: BLOOD SPECIMEN Ordering Facility: [facility] Address: [address] [place] [address] Performed By: #### 3 3959-8, 3016-3, 73739-0, 11924-8, 1987-08, #### [facility] CLIA [id number] [address] pH (U) 6.0 [pH] Normal 5.0-8.0 [facility] Comment on above: Order Comment: Speci men Type: BLOOD SPECIMEN Ordering Facility: [facility] Address: [address] [place] [address] Performed By: #### 3 3959-8, 3016-3, 10440-9, 79333-1, 1987-08, #### [facility] CLIA [id number] [address] [place] [address] [place] Protein (U) [Mass/Vol] Negative Normal Negative [facility] Comment on above: Order Comment: Speci men Type: BLOOD SPECIMEN Ordering Facility: [facility] Address: [address] [place] [address] Performed By: #### 3 3959-8, 3015-3, 70048-9, 19253-3, 1987-08, #### [facility] CLIA [id number] [address] [place] [address] [place] Specific gravity (U) [Rel density] 1.020 Normal 1.005-1.03 0 [facility] Comment on above: Order Comment: Speci men Type: BLOOD SPECIMEN Ordering Facility: [facility] Address: [address] [place] [address] Performed By: #### 3 3959-8, 3015-3, 83864-4, 70221-3, 1987-08, #### [facility] CLIA [id number] [address] [place] [id number] [place] Urobilinogen Ql (U) 0.2 EU/dL Normal 0.2-1.0 EU/dL [facility] Comment on above: Order Comment: Speci men Type: BLOOD SPECIMEN Ordering Facility: [facility] Address: [address] [place] [address] Performed By: #### 3 3959-8, 3015-3, 58061-3, 58650-1, 1987-08, #### [facility] CLIA [id number] [address] [place] [address] [place] US CHEST EFFUSION SURVEYon 1 04-17-2024 US CHEST EFFUSION SURVEY * * *Final Report* * * DATE OF EXAM: Feb 15 2025 2:22AM [facility]U 1234 - US CHEST EFFUSION SURVEY / PROCEDURE REASON: Pleural effusion suspected * * * * Physician Interpretation * * * * EXAMINATION: US CHEST EFFUSION SURVEY CLINICAL INFORMATION: 65 years old Male with Pleural effusion suspected TECHNIQUE: Targeted sonography of the chest was performed. Images were obtained and stored in a permanent archive. COMPARISON: Chest radiograph 02/14/2025 RESULT/ IMPRESSION: Right hemithorax: Moderate RIGHT pleural effusion. Left hemithorax: Small LEFT pleural effusion. Telephone Sales Agent: JANNA Transcribe Date/Time: Feb 15 2025 8:35A Dictated by : FLAKO DEL CASTILLO DO This examination was interpreted and the report reviewed and electronically signed by: FLAKO DEL CASTILLO DO on Feb 15 2025 8:36AM EST [id number] [facility] HNO ID: [id number] Author: ?, ?, ? Service: ? Author Type: ? Type: [facility] Filed: 02/14/2025 22:39 Note Text: Radiology Service Progress Note PATIENT NAME: Jaylen Mejia DATE OF SERVICE: February 14, 2025 TIME: 10:39 PM PATIENT IDENTITY VERIFICATION COMPLETED USING TWO (2) IDENTIFIERS: Name and Date of confirmed by patient verbally and Name and Date of confirmed by identification band. FALL SCREENING: Has the patient had 2 falls in the last year or 1 fall with injury or currently using an Ambulatory Assistive Device (Walker, Cane, Wheelchair, Crutches, etc.)? Inpatient: Screened on floor PATIENT GENDER DATA: Assigned male at PATIENT RELEVANT IMPLANT DATA REVIEWED: Not Applicable PATIENT PRESENTS WITH AN IMPLANTABLE OR ATTACHED STAGE SET UP WORKER: No RADIOLOGY DEPARTMENT: General X-ray: Exam(s) Completed: Chest X-Ray PERIPHERAL IV DATA: Not applicable SIGNED BY: Carrie Sanchez February 14, 2025 10:39 PM [facility] HNO ID: [id number] Author: SHIRA COLE RT(R) Service: Radiology Author Type: Technologist Type: [facility] Filed: 02/14/2025 16:42 Note Text: Radiology Service Progress Note PATIENT NAME: Jaylen Mejia DATE OF SERVICE: February 14, 2025 TIME: 4:40 PM PATIENT IDENTITY VERIFICATION COMPLETED USING TWO (2) IDENTIFIERS: Name and Date of confirmed by patient verbally. FALL SCREENING: Has the patient had 2 falls in the last year or 1 fall with injury or currently using an Ambulatory Assistive Device (Walker, Cane, Wheelchair, Crutches, etc.)? Emergency Room Patient: Screened in ED PATIENT GENDER DATA: Assigned male at PATIENT RELEVANT IMPLANT DATA REVIEWED: Not Applicable PATIENT PRESENTS WITH AN IMPLANTABLE OR ATTACHED STAGE SET UP WORKER: No RADIOLOGY DEPARTMENT: General X-ray: Exam(s) Completed: Lower Extremity X-Ray(s): Foot, Left PERIPHERAL IV DATA: Not applicable SIGNED BY: Shira Cole RT(R) February 14, 2025 4:40 PM [facility] CBC W Auto Differential pane l (Bld)on 02-14-2025 Basophils (Bld) [#/Vol] 10*3/uL Normal <0.11 [facility] Comment on above: Order Comment: Speci men Type: BLOOD SPECIMEN Ordering Facility: [facility] Address: [address] [place] [address] Performed By: #### 5 7021-8 #### [facility] CLIA [id number] [address] [place] [address] [place] Basophils/100 WBC (Bld) 0.2 % Normal [facility] Comment on above: Order Comment: Speci men Type: BLOOD SPECIMEN Ordering Facility: [facility] Address: [address] [place] [address] Performed By: #### 5 7021-8 #### [facility] CLIA [id number] [address] [place] [address] [place] Differential cell count method Nom (Bld) Auto Normal [facility] Comment on above: Order Comment: Speci men Type: BLOOD SPECIMEN Ordering Facility: [facility] Address: [address] [place] [address] Performed By: #### 5 7021-8 #### [facility] CLIA [id number] [address] [place] [address] [place] Eosinophils (Bld) [#/Vol] 0.21 10*3/uL Normal <0.46 [facility] Comment on above: Order Comment: Speci men Type: BLOOD SPECIMEN Ordering Facility: [facility] Address: [address] [place] [address] Performed By: #### 5 7021-8 #### [facility] CLIA [id number] [address] [place] [address] [place] Eosinophils/100 WBC (Bld) 2.4 % Normal [facility] Comment on above: Order Comment: Speci men Type: BLOOD SPECIMEN Ordering Facility: [facility] Address: [address] [place] [address] Performed By: #### 5 7021-8 #### [facility] CLIA [id number] [address] [place] Erythrocyte distribution width (RBC) [Ratio] 17.8 % High 11.5-15.0 [facility] Comment on above: Order Comment: Speci men Type: BLOOD SPECIMEN Ordering Facility: [facility] Address: [address] [place] [address] Performed By: #### 5 7021-8 #### [facility] CLIA [id number] [address] [place] Hematocrit (Bld) [Volume fraction] 37.5 % Low 39.0-51.0 [facility] Comment on above: Order Comment: Speci men Type: BLOOD SPECIMEN Ordering Facility: [facility] Address: [address] [place] [address] Performed By: #### 5 7021-8 #### [facility] CLIA [id number] [address] [place] Hemoglobin (Bld) [Mass/Vol] 11.8 g/dL Low 13.0-17.0 [facility] Comment on above: Order Comment: Speci men Type: BLOOD SPECIMEN Ordering Facility: [facility] Address: [address] [place] [address] Performed By: #### 5 7021-8 #### [facility] CLIA [id number] [address] [place] [address] [place] Immature granulocytes (Bld) [#/Vol] 10*3/uL Normal <0.10 [facility] Comment on above: Order Comment: Speci men Type: BLOOD SPECIMEN Ordering Facility: [facility] Address: [address] [place] [address] Performed By: #### 5 7021-8 #### [facility] CLIA [id number] [address] Immature granulocytes/100 WBC (Bld) 0.2 % Normal [facility] Comment on above: Order Comment: Speci men Type: BLOOD SPECIMEN Ordering Facility: [facility] Address: [address] [place] [address] Performed By: #### 5 7021-8 #### [facility] CLIA [id number] [address] [place] [address] [place] Lymphocytes (Bld) [#/Vol] 1.74 10*3/uL Normal 1.00-4.00 [facility] Comment on above: Order Comment: Speci men Type: BLOOD SPECIMEN Ordering Facility: [facility] Address: [address] [place] [address] Performed By: #### 5 7021-8 #### [facility] CLIA [id number] [address] Lymphocytes/100 WBC (Bld) 19.9 % Normal [facility] Comment on above: Order Comment: Speci men Type: BLOOD SPECIMEN Ordering Facility: [facility] Address: [address] [place] [address] Performed By: #### 5 7021-8 #### [facility] CLIA [id number] [address] [place] MCH (RBC) [Entitic mass] 29.9 pg Normal 26.0-34.0 [facility] Comment on above: Order Comment: Speci men Type: BLOOD SPECIMEN Ordering Facility: [facility] Address: [address] [place] [address] Performed By: #### 5 7021-8 #### [facility] CLIA [id number] [address] [place] MCHC (RBC) [Mass/Vol] 31.5 g/dL Normal 30.5-36.0 [facility] Comment on above: Order Comment: Speci men Type: BLOOD SPECIMEN Ordering Facility: [facility] Address: [address] [place] [address] Performed By: #### 5 7021-8 #### [facility] CLIA [id number] [address] [place] [address] [place] MCV (RBC) [Entitic vol] 94.9 fL Normal 80.0-100.0 [facility] [facility] Comment on above: Order Comment: Speci men Type: BLOOD SPECIMEN Ordering Facility: [facility] Address: [facility] [place] [address] Performed By: #### 5 7021-8 #### [facility] CLIA [id number] [address] [place] [address] [place] Monocytes (Bld) [#/Vol] 0.74 10*3/uL Normal <0.87 [facility] Comment on above: Order Comment: Speci men Type: BLOOD SPECIMEN Ordering Facility: [facility] Address: [address] [place] [address] Performed By: #### 5 7021-8 #### [facility] CLIA [id number] [address] [place] Monocytes/100 WBC (Bld) 8.5 % Normal [facility] Comment on above: Order Comment: Speci men Type: BLOOD SPECIMEN Ordering Facility: [facility] Address: [address] [place] [address] Performed By: #### 5 7021-8 #### [facility] CLIA [id number] [address] [place] [address] [place] Neutrophils (Bld) [#/Vol] 6.00 10*3/uL Normal 1.45-7.50 [facility] Comment on above: Order Comment: Speci men Type: BLOOD SPECIMEN Ordering Facility: [facility] Address: [address] [place] [address] Performed By: #### 5 7021-8 #### [facility] CLIA [id number] [address] [place] Neutrophils/100 WBC (Bld) 68.8 % Normal [facility] Comment on above: Order Comment: Speci men Type: BLOOD SPECIMEN Ordering Facility: [facility] Address: [address] [place] [address] Performed By: #### 5 7021-8 #### [facility] CLIA [id number] [address] Nucleated RBC (Bld) [#/Vol] 10*3/uL Normal <0.01 [facility] Comment on above: Order Comment: Speci men Type: BLOOD SPECIMEN Ordering Facility: [facility] Address: [address] [place] [address] Performed By: #### 5 7021-8 #### [facility] CLIA [id number] [address] OF [place] Nucleated RBC/100 WBC (Bld) [Ratio] 0.0 /100 WBC Normal [facility] Comment on above: Order Comment: Speci men Type: BLOOD SPECIMEN Ordering Facility: [facility] Address: [address] [place] [address] Performed By: #### 5 7021-8 #### [facility] CLIA [id number] [address] OF [place] Platelet mean volume (Bld) [Entitic vol] 9.4 fL Normal 9.0-12.7 [facility] Comment on above: Order Comment: Speci men Type: BLOOD SPECIMEN Ordering Facility: [facility] Address: [address] [place] [address] Performed By: #### 5 7021-8 #### [facility] CLIA [id number] [address] OF [place] Platelets (Bld) [#/Vol] 306 10*3/uL Normal 150-400 [facility] Comment on above: Order Comment: Speci men Type: BLOOD SPECIMEN Ordering Facility: [facility] Address: [address] [place] [address] Performed By: #### 5 7021-8 #### [facility] CLIA [id number] [address] OF [place] RBC (Bld) [#/Vol] 3.95 10*6/uL Low 4.20-6.00 [facility] Comment on above: Order Comment: Speci men Type: BLOOD SPECIMEN Ordering Facility: [facility] Address: [address] [place] [address] Performed By: #### 5 7021-8 #### [facility] CLIA [id number] [address] OF [place] WBC (Bld) [#/Vol] 8.73 10*3/uL Normal 3.70-11.00 [facility] Comment on above: Order Comment: Speci men Type: BLOOD SPECIMEN Ordering Facility: [facility] Address: [facility] [place] [address] Performed By: #### 5 7021-8 #### [facility] CLIA [id number] [address] [place] [address] [facility] CNOVon 02-14-2025 CNOV Office Visit (PLWDMR ) JAYLEN MEJIA ([id number]) 1960 M CHT Date Time Provider Department 02/14/25 1:00 PM CELE PORTER PLWDMR During your visit today, we recorded the following information about you: Temperature Pulse Blood pressure 98.2 degrees 97/minute 96/66 Elsy Hwang, RN 02/14/2025 2:29 PM Addendum Nursing Documentation Pertinent Medical History: Type II DM, Wound Etiology according to patient: States he fell (12/20/24) underneath his kitchen sink after the floor underneath it caved-in. During the fall, he scraped his left foot which resulted in this wound. Was taken to [facility] ED and was admitted for several weeks. 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 Provider seeing patient: Cele Porter DPM WOUND ASSESSMENT: Refer to Provider's Wound Assessment Note VASCULAR ASSESSMENT BY PROVIDER: N/A SUZY'S Left: Right: Brachial Pressure: HR: CHF History: Yes Smoking: Past-smoker Education: N/A EDEMA: Right foot: N/A Right calf: N/A Left foot: Unable to assess Left Calf: 4+ MEASUREMENTS: in CM Right Calf: N/A Right Ankle: N/A Left Calf: 34.0 Left Ankle: 22.0 Length: 47.5 WOUND PHOTOGRAPHY: Yes, date taken 02/14/25 DEBRIDEMENT PROCEDURE BY PROVIDER: Anesthetic Used: 2% Lidocaine gel applied per Kaylah Rodriguez RN Wound(s): #1 Other procedure: N/A Specimen collected: N/A WOUND TREATMENT PER MD ORDER: Wounds cleansed by mechanical debridement to allow provider to visualize wound base WOUND # 1 - LOCATION: Left Dorsal Foot - (12/20/24) Post Debridement Measurements: L: 12.9 cm x W: 6.6 cm x D: 1.3 cm - Tendon exposed Cleansed with: Dakins Applied to minda-wound skin: Vaseline Applied to wound bed: Adaptic AND Dakins-moistened gauze Covered and secured with: ABD pad, Kerlix, AND Tape Area of Concern - Bilateral Shins: Moisturized with Vaseline COMPRESSION: N/A DME: Pt in facility SPECIAL NEEDS: Coordination of care - AVS sent to facility via [email or web address] AND Report called to [facility] by Kaylah Rodriguez RN to Cindy COHEN Emotional support N/A OR set-up N/A Able Bodied Tankerman N/A Incontinence needs N/A DISCHARGED in stable condition to: [facility] accompanied by Gregor khan [facility] employee (Génesis) - Facility's wound VAC was with pt at discharge from wound center. PLAN/ORDERS: - Return to the [facility] for a follow-up with parts administrator Dr. Porter after discharge from the hospital. - You may bring the re-usable wound care supplies that you received during your visit with you to your next appointment. That way we can re-use the already opened items, instead of giving you new ones with every appointment that will most likely need to be thrown away before all of it can be used. - Continue aggressive nutritional support to assist in wound healing, focusing heavily on increasing protein intake. Try to get about 100 g of protein per day to promote wound healing. Look into supplementing your meals with protein shakes. Do NOT skip meals! - Please follow-up with your PCP or aircraft communicator about your elevated blood pressure readings. - If you have any questions or concerns that cannot be answered with the following information, please follow the instructions listed above on how to contact the wound center. EDUCATION: The patient/family was instructed how to cleanse the wound(s). Visual demonstration on how to apply the dressing with teach back method. Signs AND symptoms of infection were reviewed: Increased redness, swelling, pain, green/yellow drainage, fever and/or chills would all need to be evaluated by a Physician. Patient received typed home-going wound care instructions and has expressed intent to comply. Education performed regarding lymphedema/edema: Elevation of extremity above the heart for 30 minutes three times daily and as needed Exercise such as writing the ABC's with your toes in the air, walking and/or calf pumps Wearing compression as ordered by provider Diet controlling of sodium as instructed by provider Use of medication to help control edema. - UNIVERSAL PROTOCOL / SAFETY CHECKLIST - N/A - Current HBOT Status: Active or Complete - see screening below WOUND CENTER HYPERBARIC OXYGEN THERAPY (more content not included)... [facility] CONSULT Bijal 02-14-2025 CONSULT PROG HNO ID: [id number] Author: SOO BREEN RPh Service: Pharmacy Author Type: Pharmacist Type: Consult Progress Note Filed: 02/14/2025 16:13 Note Text: PHARMACY VANCOMYCIN DOSING NOTE Patient Name: Jaylen Mejia Admission Date: 02/14/2025 Date of Consult: 02/14/2025 Time of Consult: 3:27 PM Indication: Skin/soft tissue infection Goal Range: 10-20 mcg/mL RECOMMENDATIONS/PLAN: Pharmacy consulted for vancomycin dosing for Jaylen Mejia, a 65 year old male. 1. Patient is currently ordered Vancomycin 1 g IV q12h. Today is day 1 of therapy. 2. No vancomycin level has been drawn for this dosing regimen. 3. The present dose of vancomycin is the recommended dosage for this patient at this time. Continue therapy as prescribed. 4. The next vancomycin level will be ordered for 02/16 unless clinically indicated sooner. (Pharmacy will order) We will follow patient renal function, vancomycin levels and doses with you during the course of therapy. Additional recommendations will appear in follow up notes. If you have any questions, please contact pharmacy at [phone]. Age: [age] year old Allergies: ALLERGIES Allergen Reactions Amoxicillin Angioedema Previously tolerated cefepime x 5 days (12/24/24 - 12/29/24). Lindane Rash Lodine [Etodolac] GI Upset Last 3 Encounter Wt Readings: Date: Wt: 02/14/2025 73.5 kg (162 lb) 12/19/2024 63.6 kg (140 lb 3.4 oz) 12/31/2023 84.4 kg (186 lb 1.1 oz) Last 1 Encounter Ht Readings: Date: Ht: 02/06/2025 180.3 cm (5' 11) CrCl: 70 mL/min Temp (24hrs), Av.4 ?C (97.5 ?F), Min:36.4 ?C (97.5 ?F), Max:36.4 ?C (97.5 ?F) - Current Temp: 36.4 ?C (97.5 ?F) Labs BUN (mg/dL) Date Value 01/09/2025 58 (H) 01/08/2025 60 (H) 01/07/2025 59 (H) Creatinine (mg/dL) Date Value 01/09/2025 0.98 01/08/2025 0.75 01/07/2025 0.80 WBC (k/uL) Date Value 02/14/2025 8.73 01/09/2025 6.70 01/08/2025 7.93 Vancomycin Levels: Vancomycin (ug/mL) Date/Time Value 12/22/2024 0839 19.8 12/21/2024 1201 27.8 (H) Soo Breen [facility] Normal [facility] CRP SerPl-ncon 02-14-2025 CRP [Mass/Vol] 1.2 mg/dL High <0.9 [facility] Comment on above: Order Comment: Speci cliff Type: BLOOD SPECIMEN Ordering Facility: [facility] Address: [address] [place] [address] Performed By: #### 3 3959-8, 3016-3, 29944-3, 87201-8, 1987-08, #### [facility] CLIA [id number] [address] [place] [address] [place] Comprehensive metabolic 2000 panelon 02-14-2025 Albumin [Mass/Vol] 3.8 g/dL Low 3.9-4.9 [facility] Comment on above: Order Comment: Concetta coronado Type: BLOOD SPECIMEN Ordering Facility: [facility] Address: [address] [place] [address] Performed By: #### 3 3959-8, 3016-3, 28446-4, 12746-7, 1987-08, #### [facility] CLIA [id number] [address] [place] [address] [place] ALP [Catalytic activity/Vol] 180 U/L High 38-113 [facility] Comment on above: Order Comment: Concetta coronado Type: BLOOD SPECIMEN Ordering Facility: [facility] Address: [address] [place] [address] Performed By: #### 3 3959-8, 3016-3, 16879-2, 05504-1, 1987-08, #### [facility] CLIA [id number] [address] [place] [address] [place] ALT [Catalytic activity/Vol] 23 U/L Normal 10-54 [facility] Comment on above: Order Comment: Speci men Type: BLOOD SPECIMEN Ordering Facility: [facility] Address: [address] [place] [address] Performed By: #### 3 3959-8, 3016-3, 21124-1, 70961-8, 1987-08, #### [facility] CLIA [id number] [address] [place] [address] [place] Anion gap [Moles/Vol] 12 mmol/L Normal 8-15 [facility] Comment on above: Order Comment: Speci men Type: BLOOD SPECIMEN Ordering Facility: [facility] Address: [address] [place] [address] Performed By: #### 3 3959-8, 3016-3, 70095-5, 53602-2, 1987-08, #### [facility] CLIA [id number] [address] [place] [address] [place] AST [Catalytic activity/Vol] 22 U/L Normal 14-40 [facility] Comment on above: Order Comment: Speci men Type: BLOOD SPECIMEN Ordering Facility: [facility] Address: [address] [place] [address] Performed By: #### 3 3959-8, 3016-3, 02241-1, 07877-6, 1987-08, #### [facility] CLIA [id number] [address] [place] [address] [place] Bilirubin [Mass/Vol] 0.6 mg/dL Normal 0.2-1.3 [facility] Comment on above: Order Comment: Speci men Type: BLOOD SPECIMEN Ordering Facility: [facility] Address: [address] [place] [address] Performed By: #### 3 3959-8, 3016-3, 18075-2, 36279-8, 1987-08, #### [facility] CLIA [id number] [address] [place] [address] [place] Calcium [Mass/Vol] 9.5 mg/dL Normal 8.5-10.2 [facility] Comment on above: Order Comment: Speci men Type: BLOOD SPECIMEN Ordering Facility: [facility] Address: [address] [place] [address] Performed By: #### 3 3959-8, 3016-3, 39156-6, 17001-4, 1987-08, #### [facility] CLIA [id number] [address] [place] [address] [place] Chloride [Moles/Vol] 98 mmol/L Normal 98-107 [facility] Comment on above: Order Comment: Speci men Type: BLOOD SPECIMEN Ordering Facility: [facility] Address: [address] [place] [address] Performed By: #### 3 3959-8, 3016-3, 50011-7, 65158-8, 1987-08, #### [facility] CLIA [id number] [address] [place] [address] [place] CO2 [Moles/Vol] 29 mmol/L Normal 22-30 [facility] Comment on above: Order Comment: Speci men Type: BLOOD SPECIMEN Ordering Facility: [facility] Address: [address] [place] [address] Performed By: #### 3 3959-8, 3016-3, 66987-3, 09147-2, 1987-08, #### [facility] CLIA [id number] [address] [place] [address] [place] Creatinine [Mass/Vol] 1.10 mg/dL Normal 0.73-1.22 [facility] Comment on above: Order Comment: Speci men Type: BLOOD SPECIMEN Ordering Facility: [facility] Address: [address] [place] [address] Performed By: #### 3 3959-8, 3016-3, 38035-8, 12060-9, 1987-08, #### [facility] CLIA [id number] [address] [place] [address] [place] eGFRcr SerPlBld CKD-EPI 1 74 mL/min/1.73m??? Normal >=60 [facility] Comment on above: Order Comment: Concetta coronado Type: BLOOD SPECIMEN Ordering Facility: [facility] Address: [address] [place] [address] Result Comment: Matilda mated Glomerular Filtration Rate (eGFR) is calculated using the 2020 CKD-EPI creatinine equation. This equation utilizes serum creatinine, sex, and age as parameters. The creatinine assay has traceable calibration to isotope dilution-mass spectrometry. Refer to KDIGO guidelines for clinical interpretation. In patients with unstable renal function, e.g. those with acute kidney injury, the eGFR may not accurately reflect actual GFR. Performed By: #### 3 3959-8, 6-3, 63938-8, 77267-3, 1987-08, #### [facility] CLIA [id number] [address] [place] [address] [place] Glucose [Mass/Vol] 183 mg/dL High 74-99 [facility] Comment on above: Order Comment: Concetta coronado Type: BLOOD SPECIMEN Ordering Facility: [facility] Address: [address] [place] [address] Result Comment: The [place] Diabetes Association (ADA) provides guidance for cutoff values for fasting glucose and random glucose. The ADA defines fasting as no caloric intake for at least 8 hours. Fasting plasma glucose results between 100 to 125 mg/dL indicate increased risk for diabetes (prediabetes). Fasting plasma glucose results greater than or equal to 126 mg/dL meet the criteria for diagnosis of diabetes. In the absence of unequivocal hyperglycemia, results should be confirmed by repeat testing. In a patient with classic symptoms of hyperglycemia or hyperglycemic crisis, random plasma glucose results greater than or equal to 200 mg/dL meet the criteria for diagnosis of diabetes. Reference: Standards of Medical Care in Diabetes 2016, [place] [employer] Association. Diabetes Care. 2016.39(Suppl 1). Performed By: #### 3 3959-8, 3016-3, 09055-9, 29845-6, 1987-08, #### [facility] CLIA [id number] [address] [place] [address] [place] Potassium [Moles/Vol] 4.8 mmol/L Normal 3.7-5.1 [facility] Comment on above: Order Comment: Speci men Type: BLOOD SPECIMEN Ordering Facility: [facility] Address: [address] [place] [address] Performed By: #### 3 3959-8, 3016-3, 53825-7, 49956-9, 1987-08, #### [facility] CLIA [id number] [address] [place] [address] [place] Protein [Mass/Vol] 8.0 g/dL Normal 6.3-8.0 [facility] Comment on above: Order Comment: Speci men Type: BLOOD SPECIMEN Ordering Facility: [facility] Address: [address] [place] [address] Performed By: #### 3 3959-8, 6-3, 02960-5, 73487-0, 1987-08, #### [facility] CLIA [id number] [address] [place] [address] [place] Sodium [Moles/Vol] 139 mmol/L Normal 136-144 [facility] Comment on above: Order Comment: Speci men Type: BLOOD SPECIMEN Ordering Facility: [facility] Address: [address] [place] [address] Performed By: #### 3 3959-8, 6-3, 03790-9, 48079-2, 1987-08, #### [facility] CLIA [id number] [address] [place] [address] [place] Urea nitrogen [Mass/Vol] 29 mg/dL High 9-24 [facility] Comment on above: Order Comment: Speci men Type: BLOOD SPECIMEN Ordering Facility: [facility] Address: [address] [place] [address] Performed By: #### 3 3959-8, 3015-3, 14250-7, 48253-6, 1987-08, #### [facility] CLIA [id number] [address] [place] [id number] [place] ED NOTEon 02-14-2025 ED NOTE HNO ID: [id number] Author: ACE BUTLER RN Service: Nursing Author Type: Registered Nurse Type: ED Notes Filed: 02/14/2025 16:47 Note Text: Heads up to 4 South at 1646 [facility] ED NOTE HNO ID: [id number] Author: CHAYA KUNZ RN Service: Nursing Author Type: Registered Nurse Type: ED Notes Filed: 02/14/2025 14:29 Note Text: Patient being sent over from wound center for large wound on left foot. Did have a wound vac on, wound RN was not sure how long it was on. She took it off and did Dakins wet to dry dressing. Tendon and muscle is exposed, foul odor. He had caught his foot under the sink in his bathroom that is what caused wound. C/O feeling dizzy and having high blood sugars. BP at [facility] was 89/50 AND 96/56. He will require vascular, he does have an appt at [facility]. [facility] ED PROV NOTEon 02-14-2025 ED PROV NOTE HNO ID: [id number] Author: CARRIE SAHU MD Service: ? Author Type: Physician Type: ED Provider Notes Filed: 02/14/2025 16:22 Note Text: ED Provider Note Patient Name: Jaylen Mejia : 1960 SERVICE DATE: 02/14/25 History Patient presents with: Wound Infection: Patient sent to ED from wound center for worsening infection to left foot wound. +chills, +body aches 65-year-old male with history of asthma, coronary artery disease, diabetes, GERD, hyperlipidemia, and history of peripheral vascular disease who presents with wound infection to the dorsum of his left foot. Patient was seen at wound clinic today and they noted him to have worsening odor and drainage from the dorsum of his left foot and he was sent here for admission. Patient states yesterday he noticed that there was discharge of yellow-green to his midfoot and overnight he began noticing an odor. He reports feeling body aches and chills but denies fever. He denies chest pain, shortness of breath, abdominal pain, headache, or urinary symptoms. PAST MEDICAL HISTORY Diagnosis Date - Arthritis - Asthma (HCC) - Carotid atherosclerosis - Coronary artery disease - Diabetes mellitus type 2 in obese - GERD (gastroesophageal reflux disease) - History of non-ST elevation myocardial infarction (NSTEMI) 06/11/2018 - Hyperlipidemia [place] Worker Dr. Herrera Valles - Hypertension - Other emphysema (HCC) - Pancreatitis (HCC) - Stenosis of right carotid artery - Tobacco use disorder PAST SURGICAL HISTORY Procedure Laterality Date - CAROTID ENDARTERECTOMY Right 01/06/2014 - CORONARY ARTERY BYPASS GRAFT 2006 - LEFT HEART CATH,PERCUTANEOUS 06/11/2018 - RPR 1ST INGUN HRNA AGE 5 YRS/> REDUCIBLE 01/20/2017 Hernia repair, inguinal left FAMILY HISTORY Problem Relation Age of Onset - Diabetes Mother - Hypertension Father - Diabetes Father - Asthma Father - Alcohol abuse Father - Arthritis Father - Heart disease Father - Hyperlipidemia Father - Stroke Father - Lung Cancer Father - None Sister - Heart Attack Paternal Grandfather - Diabetes Paternal Uncle Social History[1] ALLERGIES Allergen Reactions - Amoxicillin Angioedema - Lindane Rash - Lodine [Etodolac] GI Upset Review of Systems Constitutional: Positive for chills. Negative for fever. HENT: Negative for congestion. Respiratory: Negative for cough and shortness of breath. Cardiovascular: Negative for chest pain. Gastrointestinal: Negative for abdominal pain, diarrhea, nausea and vomiting. Genitourinary: Negative for difficulty urinating. Skin: Positive for wound. Physical Exam Vitals [02/14/25 1444] BP Pulse Temp Temp src Resp SpO2 Weight Height (!) 88/56 (!) 98 36.4 ?C (97.5 ?F) Oral 16 95 % 73.5 kg (162 lb) -- Physical Exam Vitals and nursing note reviewed. Constitutional: General: He is not in acute distress. Appearance: Normal appearance. He is well-developed. HENT: Head: Normocephalic and atraumatic. Right Ear: External ear normal. Left Ear: External ear normal. Nose: Nose normal. Mouth/Throat: Mouth: Mucous membranes are moist. Pharynx: Oropharynx is clear. Eyes: Conjunctiva/sclera: Conjunctivae normal. Pupils: Pupils are equal, round, and reactive to light. Cardiovascular: Rate and Rhythm: Normal rate and regular rhythm. Heart sounds: Normal heart sounds. No murmur heard. Pulmonary: Effort: Pulmonary effort is normal. No respiratory distress. Breath sounds: Normal breath sounds. No stridor. No wheezing or rales. Abdominal: General: There is no distension. Palpations: Abdomen is soft. Tenderness: There is no abdominal tenderness. There is no rebound. Musculoskeletal: General: No tenderness. Normal range of motion. Cervical back: Normal range of motion and neck supple. Feet: Lymphadenopathy: Cervical: No cervical adenopathy. Skin: General: Skin is warm and dry. Findings: No erythema or rash. Neurological: Mental Status: He is alert and oriented to person, place, and time. Psychiatric: Mood and Affect: Mood normal. Behavior: Behavior normal. Thought Content: Thought content normal. Judgment: Judgment normal. Diagnostic Testing ED Labs Ordered and Reviewed - No data to display Procedures ED Course / Clinical Impression Clinical Impressions as of 02/14/25 1625 Wound infection Elevated lactic acid level Hypotension, unspecified hypotension type Anemia, unspecified type MDM / Disposition / Plan 65-year-old male with history of wound infection to the left mid foot for several months seeing wound clinic. Overnight, patient began having odor and drainage to the wound and was sent here from wound clinic. Workup in ED reveals WBCs 8.73, hemoglobin 11.8, CMP normal except for glucose of 183 and alk phos of 180. Sepsis lactate 2.7. While in ED, patient was given IV cefepime prior to ED sepsis alert being initiated. Blood cultures had b (more content not included)... Normal [facility] HISTORY PHYSICALon HISTORY PHYSICAL HNO ID: [id number] Author: EDILSON AHUJA MD Service: Hospital Medicine Author Type: Physician Type: H&P Filed: 02/14/2025 21:02 Note Text: DEPARTMENT OF HOSPITAL MEDICINE HISTORY AND PHYSICAL EXAM SERVICE DATE: 02/14/2025 SERVICE TIME: 4:27 PM Primary Care Physician: Xiang Rogers DO, DO NIGHT AND WEEKEND COVERAGE: [facility] COVERAGE: Days: [phone], please page attending physician. Nights: [phone], please page [place] [facility] Night coverage pager [phone]. Subjective CHIEF COMPLAINT: Sent from wound center HPI: This is a 65 year old male who presents with HFrEF, IDT2DM, GERD, HLD, peripheral vascular disease, CAD, tobacco use disorder presents to [facility] ED on 02/14/2025 per instructions of wound clinic due to worsening odor and drainage from dorsum of his L foot.. Patient noticed yellow-green discharge on his midfoot and noticed odor. Reports body aches and chills NO fever. Prior to formal admission, paged by nursing regarding patient having vision changes with low BP. Patient was placed in trendelenburg w/mild improvement. On bedside evaluation, patient has dusky appearance with delayed capillary refill. He also feels SoB and has new oxygen requirement. Patient also has lactate that is not trending in appropriate direction. Given his hx of HFrEF, I am ordering one additional bolus of 500 mL LR. Attempting to contact E-hospitalist to have patient transferred to ICU. I fear that he has very low cardiac reserve to compensate for septic shock and close monitoring in ICU is necessary for adequate care. I spoke to paraffin plant operator Dr. Anderson who suggested 25 g infusion of albumin. He stated he would speak to ICU staff about monitoring for now but patient will stay on RNF. The following problems are present on admission at this time: Heart failure Anemia Chronic pulmonary disease Diabetes mellitus Hypertension Peripheral vascular disorder Valvular disease Continue current outpatient treatment plan and current medications for these conditions, except where otherwise noted. PAST MEDICAL HISTORY Diagnosis Date Arthritis Asthma (HCC) Carotid atherosclerosis Coronary artery disease Diabetes mellitus type 2 in obese GERD (gastroesophageal reflux disease) History of non-ST elevation myocardial infarction (NSTEMI) 06/11/2018 Hyper[address] [place] Worker Dr. Herrera Valles Hypertension Other emphysema (HCC) Pancreatitis (HCC) Stenosis of right carotid artery Tobacco use disorder PAST SURGICAL HISTORY Procedure Laterality Date CAROTID ENDARTERECTOMY Right 01/06/2014 CORONARY ARTERY BYPASS GRAFT 2006 LEFT HEART CATH,PERCUTANEOUS 06/11/2018 RPR 1ST INGUN HRNA AGE 5 YRS/> REDUCIBLE 01/20/2017 Hernia repair, inguinal left FAMILY HISTORY Problem Relation Age of Onset Diabetes Mother Hypertension Father Diabetes Father Asthma Father Alcohol abuse Father Arthritis Father Heart disease Father Hyperlipidemia Father Stroke Father Lung Cancer Father None Sister Heart Attack Paternal Grandfather Diabetes Paternal Uncle SOCIAL HISTORY[1] PRIOR TO ADMISSION MEDICATIONS: Prior to Admission Medications Prescriptions Last Dose Informant Patient Reported? Taking? Blood-Glucose Meter monitoring kit No No Sig: Glucose Meter of Choice - Kit - Dx: Type 2 DM - Uncontrolled E11.65 Lancets lancets No No Sig: Test blood sugar(s) 2 daily. Dx: E11.65 Insulin: Yes REPATHA SURECLICK 140 mg/mL pen injector Yes No Sig: Inject 140 mg subcutaneously every 2 weeks. acetaminophen (TYLENOL) 500 mg tablet Yes No Sig: Take 500 mg by mouth every 6 hours as needed for pain. albuterol HFA (PROAIR HFA) 90 mcg/actuation inhaler No No Sig: Inhale 2 Puffs as instructed every 4 hours as needed for Wheezing/Shortness of Breath. aspirin 81 mg chewable tablet No No Sig: Take 1 tablet by mouth once daily. atorvastatin (LIPITOR) 40 mg tablet No No Sig: Take 1 tablet by mouth daily at bedtime. bisacodyl (DULCOLAX) 10 mg supp Yes No Si mg by RECTAL route once daily as needed for constipation. blood sugar diagnostic (BLOOD GLUCOSE TEST) test strip No No Sig: Test blood sugar(s) 2 daily. Dx: E11.65. Insulin: Yes clopidogrel (PLAVIX) 75 mg tablet No No Sig: Take 1 tablet by mouth once daily. dapagliflozin propanediol (FARXIGA) 10 mg tablet Yes No Sig: Take 10 mg by mouth daily with breakfast. ezetimibe (ZETIA) 10 mg tablet Yes No Sig: Take 10 mg by mouth once daily. fluticasone (FLONASE) 50 mcg/actuation nasal spray Yes No Sig: Use 2 sprays in each nostril once daily as needed for cold/allergy symptoms. fluticasone-salmeterol (ADVAIR DISKUS) 100-50 mcg/dose inhaler Yes No Sig: Inhale 1 puff as instructed once daily. insulin glargine 100 unit/mL (3 mL) No No Sig: Inject 10 Units subcutaneously daily at bedtime. Patient taking differently: Inject 14 Units subcutaneously daily at bedtime. insulin lispro (HUMALOG KWIKPEN INSULIN) 100 unit/mL Ye (more content not included)... Normal [facility] Lactate (Bld) [Moles/Vol]on 02-14-2025 Lactate [Moles/Vol] 2.8 mmol/L High 0.5-2.2 [facility] Comment on above: Order Comment: Speci men Type: BLOOD SPECIMEN Ordering Facility: [facility] Address: [address] [place] [address] Performed By: #### 3 2693-4 #### [facility] CLIA [id number] [address] [place] [id number] [place] MEDICAL EMERon 02-14-2025 MEDICAL DELLA HNO ID: [id number] Author: JAIMIE REICH APRN.TURNER Service: Critical Care Author Type: Nurse Practitioner Type: Chg in Clinical Condition Filed: 02/14/2025 21:58 Note Text: EMERGENCY RESPONSE TEAM Rapid Response Date of MET Page: February 14, 2025 Time of MET Page: 2100 Requesting Provider: bedside RN SUMMARY DIAGNOSIS, ASSESSMENT and RECOMMENDATIONS [employer] 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 Per RN pt was attempting to get out of bed to use the bedside commode on his own when he felt dizzy. He previously had +orthostatic VS and received 25G of albumin. Pt denies dizziness, lightheadedness, blurred/double visions or TONEY at this time while sitting up in bed. He states his biggest complaint is his foot pain. Pt states his BP usually runs with SBP in the 90s. Pt is afebrile. He is saturating 98-100% on 3L NC. He was weaned to RA, but stated he felt Shortness of Breath when the oxygen was taken off. VSS. BP low, but MAPs >65. He has received 2L of IVF since admission. Will give an addition 500 LRB over 1 hour given he continues to have dizziness with movement and +orthostatic VS. ECHO reviewed from 12/21/24 showing EF of 27% and moderate to severe . No current ICU needs at this time. Care/Management discussed with hospitalist Edilson Ahuja at bedside. Will transfer to for closer monitoring at this time. If pt's BPs downtrend following LRB will likely need transferred to ICU for vasopressors. Staff aware and agreeable with plan. Pt is FULL code. Status: Stable PLAN #+Orthostatic VS #Dizziness #Sepsis #Lactic Acidosis #Anemia - Complete sepsis bolus 30mL/KG; already received 2L IVF, will give additional 500mL - Wean O2 for sats >92% - Add on TSH, procal, CRP, Mag to previous labs - Repeat LA (2.7>2.5>2.8) and CBC at midnight - Receiving appropriate antibiotic coverage; blood cultures pending/ wound cx pending - Monitor for worsening symptoms/hypotension - Send MRSA swab - Will send UA, CXR to r/o other sources of infection - Consider L foot MRI DISPOSITION and OUTCOME Transfer to History of Present Illness: This is a 65 year old male PMHx DM II, hernia, HTN, HLD, PAD, COPD, HFrEF(27%), who was admitted to the hospital for a worsening L foot infection with a lactic acidosis. L foot XR negative for OM. PRIMARY REASON FOR CALL Dizziness PAST MEDICAL / SURGICAL HISTORY PAST MEDICAL HISTORY Diagnosis Date Arthritis Asthma (HCC) Carotid atherosclerosis Coronary artery disease Diabetes mellitus type 2 in obese GERD (gastroesophageal reflux disease) History of non-ST elevation myocardial infarction (NSTEMI) 06/11/[address] Hyper[address] [place] Worker Dr. Herrera Valles Hypertension Other emphysema (HCC) Pancreatitis (HCC) Stenosis of right carotid artery Tobacco use disorder , PAST SURGICAL HISTORY Procedure Laterality Date CAROTID ENDARTERECTOMY Right 01/06/2014 CORONARY ARTERY BYPASS GRAFT 2006 LEFT HEART CATH,PERCUTANEOUS 06/11/2018 RPR 1ST INGUN HRNA AGE 5 YRS/> REDUCIBLE 01/20/2017 Hernia repair, inguinal left , Active Hospital Problems Diagnosis Cellulitis of left foot Anemia Hypoxia Lactate blood increase Alkaline phosphatase elevation Aortic valve stenosis Mitral valve insufficiency HFrEF (heart failure with reduced ejection fraction) (HCC) 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 (HCC) Primary hypertension Mixed hyperlipidemia Peripheral arterial disease Chronic obstructive pulmonary disease (HCC) Coronary artery disease involving [place] heart without angina pectoris Umbilical hernia Added automatically from request for surgery [id number] Type 2 diabetes mellitus with hyperglycemia, with long-term current use of insulin (HCC) Pure hypercholesterolemia MEDICATIONS Current Facility-Administered Medications Medication Dose Route Frequency cefepime 2 g in D5W 100 mL Vial-Bag (MAXIPIME) 2 g INTRAVENOUS q 8 H vancomycin dosing and monitoring per pharmacy OTHER As Directed NaCl 0.9% iv flush bag 20 mL INTRAVENOUS PRN vancomycin iv piggyback 1 g in D5W 200 mL (VANCOCIN) 0.015 g/kg/dose INTRAVENOUS q 12 HR dextrose 40 % 15 g 15 g ORAL PRN Or glucagon 1 mg injection 1 mg INTRAMUSCULAR PRN Or dextrose 10% iv bolus 12.5 g INTRAVENOUS PRN insulin lispro injection (rapid acting) (ADMElog) SUBCUTANEOUS w MEALS acetaminophen 500-1,000 mg tab(s) (TYLENOL) 500-1,000 mg ORAL q 6 H PRN oxyCODONE IR 5 mg tab(s) (ROXICODONE) 5 mg ORAL q 6 H PRN atorvastatin 40 mg tab(s) (LIPITOR) 40 mg ORAL AT BEDTIME ezetimibe 10 mg tab(s) (ZETIA) 10 mg ORAL DAILY insulin glargine 14 Units pen (long acting) 14 Units SUBCUTANEOUS AT BEDTIME lactated ringers 500 mL iv bolus 500 mL INTRAVENOUS ONCE ALLERGIES ALLERGIES Allergen Reactions Amoxicillin Angioedema Previously tolerated cefepime x 5 days (12/24/24 - 12/29/24). Kavitha Phani (more content not included)... Normal [facility] [Mass/Vol] 2.4 mg/dL High 1.7-2.3 [facility] Comment on above: Order Comment: Specgay coronado Type: BLOOD SPECIMEN Ordering Facility: [facility] Address: [address] [place] [address] Performed By: #### 3 3959-8, 6-3, 79082-8, 22622-0, 1987-08, #### [facility] CLIA [id number] [address] [place] NT-proBNP [facility] 02-14 Natriuretic peptide.B prohormone N-Terminal [Mass/Vol] 19014 pg/mL High <125 [facility] Comment on above: Order Comment: Specgay coronado Type: BLOOD SPECIMEN Ordering Facility: [facility] Address: [address] [place] [address] Performed By: #### 3 3959-8, 6-3, 59414-4, 95074-4, 1987-08, #### [facility] CLIA [id number] [address] [place] Procalcitonin [facility] 04-16-2024 Procalcitonin [Mass/Vol] 0.17 ng/mL High <0.09 [facility] Comment on above: Order Comment: Concetta coronado Type: BLOOD SPECIMEN Ordering Facility: [facility] Address: [address] [place] [address] Result Comment: For a guided interpretation of test results, please visit the Change in Procalcitonin Calculator, [email or web address]. Performed By: #### 3 3959-8, 3016-3, 05608-0, 69951-3, 1987-08, #### [facility] CLIA [id number] [address] SEPSIS LACTATE W/ REFLEX (IN ITIAL)on 02-14-2025 Lactate [Moles/Vol] 2.7 mmol/L High 0.5-2.0 [facility] Comment on above: Order Comment: Speci men Type: BLOOD SPECIMEN Ordering Facility: [facility] Address: [address] [place] [address] Performed By: #### 3 3959-8, 6-3, 97425-4, 43905-2, 1987-08, #### [facility] CLIA [id number] [address] SEPSIS LACTATE W/ REFLEX (SE COND)on 02-14-2025 Lactate [Moles/Vol] 2.5 mmol/L High 0.5-2.0 [facility] Comment on above: Order Comment: Speci men Type: BLOOD SPECIMEN Ordering Facility: [facility] Address: [address] [place] [address] Performed By: #### 3 3959-8, 3015-3, 09104-0, 41334-1, 1987-08, #### [facility] CLIA [id number] [address] OF [facility] TSH SerPl-aCncon 02-14-2025 TSH Qn 1.320 m[IU]/L Normal 0.270-4.20 0 [facility] Comment on above: Order Comment: Speci men Type: BLOOD SPECIMEN Ordering Facility: [facility] Address: [address] [place], [place] [id number] Performed By: #### 3 3959-8, 3015-3, 83825-0, 85527-1, 1987-08, #### [facility] CLIA [id number] [address] XR CHEST 1V FRONTALon 2024 XR CHEST 1V FRONTAL * * *Final Report* * * DATE OF EXAM: Feb 14 2025 10:38PM MDX 5290 - XR CHEST 1V FRONTAL / PROCEDURE REASON: Shortness of breath * * * * Physician Interpretation * * * * Portable chest Exam Date/Time: 02/14/2025 10:38 PM Provided history: * 65 years old Male * Shortness of breath Comparison Study: 12/07/2024 Single portable view of the chest presented. The cardiac silhouette is enlarged. There are bilateral pleural effusions. The pulmonary vasculature appears congested. No focal infiltrates identified. The bony structures appear within normal limits. Impression: Findings consistent with congestive heart failure. Telephone Sales Agent: JANNA Transcribe Date/Time: Feb 15 2025 12:25A Dictated by : BHARGAV SEGURA MD This examination was interpreted and the report reviewed and electronically signed by: BHARGAV SEGURA MD on Feb 15 2025 12:40AM EST [id number] [facility] XR FOOT 3V AP/LAT/OBL LTon 1 04-16-2024 XR FOOT 3V AP/LAT/OBL LT * * *Final Report* * * DATE OF EXAM: Feb 14 2025 4:39PM MDX 5336 - XR FOOT 3V AP/LAT/OBL LT / PROCEDURE REASON: Osteomyelitis * * * * Physician Interpretation * * * * TITLE: XR FOOT 3V AP/LAT/OBL LT CLINICAL INDICATION: Dorsal wound. Evaluate for osteomyelitis. TECHNIQUE: 3 view radiographic study of the left foot COMPARISON: None FINDINGS: Surgical clips along the medial aspect of the ankle. Otherwise, no radiopaque foreign body. No soft tissue gas. Diffuse osseous demineralization. No cortical destruction or periostitis to suggest radiographic evidence of osteomyelitis. No acute fracture or dislocation identified. IMPRESSION: No radiographic evidence of osteomyelitis. If ongoing clinical concern, consider further evaluation with MRI as it is a much more sensitive study. Telephone Sales Agent: JANNA Transcribe Date/Time: Feb 14 2025 4:41P Dictated by : ROBERTO MARTINEZ MD This examination was interpreted and the report reviewed and electronically signed by: ROBERTO MARTINEZ MD on Feb 14 2025 4:42PM EST [id number] [facility] CNNURSEon 02-06-2025 CNNURSE Nurse Visit (AKURFL) JAYLEN MEJIA ([id number]) 1960 M [facility] Date Time Provider Department 02/06/25 3:00 PM NURSE LILIA GARCÍA During your visit today, we recorded the following information about you: Raven Vallejo RN 02/06/2025 3:22 PM Signed Patient presents today for a bladder scan after mcdermott removal this morning. Scan performed without difficulty. Residual urine amount is 0 ml. Patient states he has been able to urinate without difficulty since mcdermott was removed. Patient denies any pain/ discomfort. Patient instructed to notify nursing staff at facility where he resides if he has any difficulty urinating. Signals Intelligence Superintendent offered: Aid from nursing facility present during entire vist Raven Vallejo RN Referring Provider: JUANY THOMAS [[id number]] Allergies As of Date: 02/06/2025 Noted Allergy Reaction AMOXICILLIN 12/30/2021 18 - Angioedema LINDANE 12/30/2021 2 - Rash LODINE (ETODOLAC) 03/12/2005 8 - GI Upset Date Reviewed: 02/06/2025 Reviewed by: Raven Vallejo RN - Fully Assessed Reason for Visit: Benign prostatic hyperplasia without lower urinary tract sy [Other] Primary Visit Diagnosis:Urinary retention [R33.9] Order(s):BLADDER SCAN [1850021] Order #: [id number] Prescriptions as of 02/06/2025 - tamsulosin (FLOMAX) 0.4 mg Take 1 capsule by mouth once daily. - traZODone (DESYREL) 50 mg tablet 0.5 tablets by ORAL/FEEDING TUBE route daily at bedtime. - torsemide (DEMADEX) 20 mg tablet Take 2 tablets by mouth two times a day. - thiamine (VITAMIN B1) 100 mg tablet Take 1 tablet by mouth once daily. - atorvastatin (LIPITOR) 40 mg tablet Take 1 tablet by mouth daily at bedtime. - pantoprazole DR (PROTONIX) 40 mg tablet Take 1 tablet by mouth daily at 6 am. - insulin glargine 100 unit/mL (3 mL) Inject 10 Units subcutaneously daily at bedtime. - metoprolol succinate ER (TOPROL XL) 25 mg 24 hr tablet Take 1 tablet by mouth once daily. - aspirin 81 mg chewable tablet Take 1 tablet by mouth once daily. - clopidogrel (PLAVIX) 75 mg tablet Take 1 tablet by mouth once daily. - dapagliflozin propanediol (FARXIGA) 10 mg tablet Take 10 mg by mouth daily with breakfast. - REPATHA SURECLICK 140 mg/mL pen injector Inject 140 mg subcutaneously every 2 weeks. - ezetimibe (ZETIA) 10 mg tablet Take 10 mg by mouth once daily. - fluticasone-salmeterol (ADVAIR DISKUS) 100-50 mcg/dose inhaler Inhale 1 puff as instructed once daily. - fluticasone (FLONASE) 50 mcg/actuation nasal spray Use 2 sprays in each nostril once daily as needed for cold/allergy symptoms. - nicotine (NICODERM CQ) 21 mg/24 hr Apply 1 patch as directed every 24 hours. - nitroglycerin sublingual (NITROQUICK) 0.4 mg SL tablet Dissolve 0.4 mg under the tongue every 5 minutes as needed. - Lancets lancets Test blood sugar(s) 2 daily. Dx: E11.65 Insulin: Yes - insulin needles, DISPOSABLE, (PEN NEEDLE) 31 gauge x 16 ndle Use one needle per dose. 1 per day. - Blood-Glucose Meter monitoring kit Glucose Meter of Choice - Kit - Dx: Type 2 DM - Uncontrolled E11.65 - blood sugar diagnostic (BLOOD GLUCOSE TEST) test strip Test blood sugar(s) 2 daily. Dx: E11.65. Insulin: Yes - albuterol HFA (PROAIR HFA) 90 mcg/actuation inhaler Inhale 2 Puffs as instructed every 4 hours as needed for Wheezing/Shortness of Breath. Problem List As Of Date 02/06/2025 Noted Resolved Uncontrolled type 2 diabetes mellitus without c*10/09/2015 Pure hypercholesterolemia [E78.00] 10/09/2015 Umbilical hernia [K42.9] 01/05/2017 Inguinal hernia [K40.90] 01/05/2017 Critical limb ischemia of left lower extremity *12/20/2024 Primary hypertension [I10] 12/20/2024 Mixed hyperlipidemia [E78.2] 12/20/2024 Diabetes mellitus type 2 with ketoacidosis, unc*12/20/2024 Peripheral arterial disease [I73.9] 12/20/2024 Chronic hypoxic respiratory failure (HCC) [J96.*12/20/2024 Pleural effusion on right [J90] 12/20/2024 01/09/2025 Chronic obstructive pulmonary disease (HCC) [J4*12/20/[address] of the chest [R93.89] 12/20/2024 Toxic metabolic encephalopathy [G92.8] 12/20/2024 01/09/2025 Coronary artery disease involving [place] heart *12/20/2024 Chronic systolic CHF (congestive heart failure)*12/20/2024 Ischemic cardiomyopathy [I25.5] 12/20/2024 CKD (chronic kidney disease) stage 2, GFR 60-89*12/20/2024 At risk for delirium [Z91.89] 12/20/2024 Atelectasis [J98.11] 12/21/2024 01/09/2025 Pleural effusion [J90] 12/21/2024 01/09/2025 Atherosclerosis of [place] artery of left lower *12/21/2024 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 Normal [facility] CNOVon 02-06-2025 CNOV Office Visit (AKURFL ) JAYLEN MEJIA ([id number]) 1960 M [facility] Date Time Provider Department 02/06/25 9:00 AM JUANY THOMAS During your visit today, we recorded the following information about you: Pulse Height 89/minute 1.803 m Juany Thomas APRN.MANAGER COSMETIC 02/06/2025 9:30 AM Signed [facility] - [place] [facility] NEW PATIENT UROLOGY VISIT 02/06/2025 9:30 AM PATIENT NAME: Jaylen Mejia DATE OF : 1960 TODAY'S DATE: 02/06/2025 Chief Complaint: Patient presents with: Urinary Retention History of Present Illness: Mr. Mejia is a 65 year old male who presents to the office regarding urinary retention. Patient admitted to [facility] for lower limb ischemia from 12/20/2024-01/09/2025. Had catheter placed during admission. Patient unsure why catheter was placed but states he was having difficulty urinating during admission. Denies difficulty urinating prior to admission. Here today for catheter removal and trial of void. Currently residing at [facility] [place]+ years Toxic chemical exposure: Denies Bladder cancer history: Denies Denies hematuria, catheter malfunction, fever or chills. He is drinking lots of water. Review of Systems Constitutional: Negative. 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 Herrera Valles Hypertension Other emphysema (HCC) Pancreatitis (HCC) Stenosis of right carotid artery Tobacco use disorder Past Surgical History: PAST SURGICAL HISTORY Procedure Laterality Date CAROTID ENDARTERECTOMY Right 01/06/2014 CORONARY ARTERY BYPASS GRAFT 2006 LEFT HEART CATH,PERCUTANEOUS 06/11/2018 RPR 1ST INGUN HRNA AGE 5 YRS/> REDUCIBLE 01/20/2017 Hernia repair, inguinal left Social History: SOCIAL HISTORY[1] Medications: Prior to Admission medications: Medication traZODone (DESYREL) 50 mg tablet, Sig 0.5 tablets by ORAL/FEEDING TUBE route daily at bedtime., Start Date 01/09/25, End Date 04/09/25, Authorizing Provider Karen Lr DO Medication torsemide (DEMADEX) 20 mg tablet, Sig Take 2 tablets by mouth two times a day., Start Date 01/09/25, End Date 04/09/25, Authorizing Provider Karen Lr DO Medication thiamine (VITAMIN B1) 100 mg tablet, Sig Take 1 tablet by mouth once daily., Start Date 01/09/25, End Date 04/09/25, Authorizing Provider Karen Lr DO Medication atorvastatin (LIPITOR) 40 mg tablet, Sig Take 1 tablet by mouth daily at bedtime., Start Date 01/09/25, End Date 04/09/25, Authorizing Provider Karen Lr DO Medication pantoprazole DR (PROTONIX) 40 mg tablet, Sig Take 1 tablet by mouth daily at 6 am., Start Date 01/10/25, End Date 04/10/25, Authorizing Provider Karen Lr DO Medication insulin glargine 100 unit/mL (3 mL), Sig Inject 10 Units subcutaneously daily at bedtime., Start Date 01/09/25, Authorizing Provider Karen Lr DO Medication metoprolol succinate ER (TOPROL XL) 25 mg 24 hr tablet, Sig Take 1 tablet by mouth once daily., Start Date 01/09/25, End Date 04/09/25, Authorizing Provider Karen Lr DO Medication aspirin 81 mg chewable tablet, Sig Take 1 tablet by mouth once daily., Start Date 01/06/25, Authorizing Provider Carlotta Grady PA-C Medication clopidogrel (PLAVIX) 75 mg tablet, Sig Take 1 tablet by mouth once daily., Start Date 01/06/25, Authorizing Provider Carlotta Grady PA-C Medication dapagliflozin propanediol (FARXIGA) 10 mg tablet, Sig Take 10 mg by mouth daily with breakfast., Start Date 11/18/24, Authorizing Provider Provider, Ccf Medication REPATHA SURECLICK 140 mg/mL pen injector, Sig Inject 140 mg subcutaneously every 2 weeks., Start Date 11/17/24, Authorizing Provider Provider, Ccf Medication ezetimibe (ZETIA) 10 mg tablet, Sig Take 10 mg by mouth once daily., Start Date 11/18/24, Authorizing Provider Provider, Ccf Medication fluticasone-salmeterol (ADVAIR DISKUS) 100-50 mcg/dose inhaler, Sig Inhale 1 puff as instructed once daily., Start Date 12/09/24, Authorizing Provider Provider, Ccf Medication fluticasone (FLONASE) 50 mcg/actuation nasal spray, Sig Use 2 sprays in each nostril once daily as needed for cold/allergy symptoms., Start Date 12/09/24, Authorizing Provider Provider, Ccf Medication nicotine (NICODERM CQ) 21 mg/24 hr, Sig Apply 1 patch as directed every 24 hours., Patient not taking: Reported on 01/30/2025, Authorizing Provider Provider, Ccf Medication nitroglycerin sublingual (NITROQUICK) 0.4 mg SL tablet, Sig Dissolve 0.4 mg under the tongue every 5 minutes as needed., Authorizing Provider P (more content not included)... Normal [facility] Basic metabolic 2000 panelon 01-09-2025 Anion gap [Moles/Vol] 13 mmol/L Normal 8-15 [facility] Comment on above: Order Comment: Speci men Type: BLOOD SPECIMENOrdering Facility: [facility] Address: [address] [place] [address] Performed By: #### 1 9123-9, 2777-1, 11644-8 ####[facility] LABORATORYCLIA [id number] [place] [address] [place] Calcium [Mass/Vol] 9.6 mg/dL Normal 8.5-10.2 [facility] Comment on above: Order Comment: Speci men Type: BLOOD SPECIMENOrdering Facility: [facility] Address: [address] [id number] Performed By: #### 1 9123-9, 2777-1, 83659-2 ####[facility]ORATORYCLIA [id number] [place] [id number] [place] Chloride [Moles/Vol] 90 mmol/L Low 98-107 [facility] Comment on above: Order Comment: Speci men Type: BLOOD SPECIMENOrdering Facility: [facility] Address: [address] [place] [address] Performed By: #### 1 9123-9, 2777-, 84766-1 ####[facility]ORATORYCLIA [id number] [place] [id number] [place] CO2 [Moles/Vol] 28 mmol/L Normal 22-30 [facility] Comment on above: Order Comment: Speci men Type: BLOOD SPECIMENOrdering Facility: [facility] Address: [address] [place] [address] Performed By: #### 1 9123-9, 2777, 07448-1 ####[facility]ORATORYCLIA [id number] [place] [id number] [place] Creatinine [Mass/Vol] 0.98 mg/dL Normal 0.73-1.22 [facility] Comment on above: Order Comment: Speci men Type: BLOOD SPECIMENOrdering Facility: [facility] Address: [address] [place] [address] Performed By: #### 1 9123-9, 2777, 07641-0 ####[facility]ORATORYCLIA [id number] [place] [address] [place] eGFRcr SerPlBld CKD-EPI 2020 86 mL/min/1.73m??? Normal >=60 [facility] Comment on above: Order Comment: Speci men Type: BLOOD SPECIMENOrdering Facility: [facility] Address: [address] [place] [address] Result Comment: Matilda mated Glomerular Filtration Rate (eGFR) is calculated using the 2020 CKD-EPI creatinine equation. This equation utilizes serum creatinine, sex, and age as parameters. The creatinine assay has traceable calibration to isotope dilution-mass spectrometry. Refer to KDIGO guidelines for clinical interpretation. In patients with unstable renal function, e.g. those with acute kidney injury, the eGFR may not accurately reflect actual GFR. Performed By: #### 1 9123-9, 2777-, 11868-0 ####[facility]ORATORYCLIA [id number] [place] [address] [place] Glucose [Mass/Vol] 288 mg/dL High 74-99 [facility] Comment on above: Order Comment: Speci men Type: BLOOD SPECIMENOrdering Facility: [facility] Address: [address] [place] [address] Result Comment: The [place] [employer] (ADA) provides guidance for cutoff values for fasting glucose and random glucose. The ADA defines fasting as no caloric intake for at least 8 hours. Fasting plasma glucose results between 100 to 125 mg/dL indicate increased risk for diabetes (prediabetes).Fasting plasma glucose results greater than or equal to 126 mg/dL meet the criteria for diagnosis of diabetes. In the absence of unequivocal hyperglycemia, results should be confirmed by repeat testing. In a patient with classic symptoms of hyperglycemia or hyperglycemic crisis, random plasma glucose results greater than or equal to 200 mg/dL meet the criteria for diagnosis of diabetes.Reference: Standards of Medical Care in Diabetes 2016, [place] [employer]. Diabetes Care. 2016.39(Suppl 1). Performed By: #### 1 9123-9, 2777-, 32705-8 ####[facility] LABORATORYCLIA [id number] [place] [id number] [place] Potassium [Moles/Vol] 4.8 mmol/L Normal 3.7-5.1 [facility] Comment on above: Order Comment: Concetta coronado Type: BLOOD SPECIMENOrdering Facility: [facility] Address: [address] [place], [place] [address] Performed By: #### 1 9123-9, 2777-, 78719-2 ####[facility] LABORATORYCLIA [id number] [place] [id number] [place] Sodium [Moles/Vol] 131 mmol/L Low 136-144 [facility] Comment on above: Order Comment: Yadii men Type: BLOOD SPECIMENOrdering Facility: [facility] Address: [address] [place], [place] [address] Performed By: #### 1 9123-9, 2777-, 72822-1 ####[facility] LABORATORYCLIA [id number] [place] [id number] [place] Urea nitrogen [Mass/Vol] 58 mg/dL High 9-24 [facility] Comment on above: Order Comment: Speci men Type: BLOOD SPECIMENOrdering Facility: [facility] Address: [address] [place] [address] Performed By: #### 1 9123-9, 2777-1, 72004-7 ####[facility]ORATORYCLIA [id number] [address] [place] CASE MANAGEMon 01-09-2025 CASE MANAGEM Normal [facility] CBC W Auto Differential pane l (Bld)on 01-09-2025 Basophils (Bld) [#/Vol] 0.04 10*3/uL Normal <0.11 [facility] Comment on above: Order Comment: Speci men Type: BLOOD SPECIMENOrdering Facility: [facility] Address: [address] [place] [address] Performed By: #### 5 7021-8 ####[facility] LABORATORYCLIA [id number] [address] [place] Basophils/100 WBC (Bld) 0.6 % Normal [facility] Comment on above: Order Comment: Speci men Type: BLOOD SPECIMENOrdering Facility: [facility] Address: [address] [place] [address] Performed By: #### 5 7021-8 ####[facility] LABORATORYCLIA [id number] [address] [place] Differential cell count method Nom (Bld) Auto Normal [facility] Comment on above: Order Comment: Speci men Type: BLOOD SPECIMENOrdering Facility: [facility] Address: [address] [place] [address] Performed By: #### 5 7021-8 ####[facility] LABORATORYCLIA [id number] [place] [address] [place] Eosinophils (Bld) [#/Vol] 0.19 10*3/uL Normal <0.46 [facility] Comment on above: Order Comment: Speci men Type: BLOOD SPECIMENOrdering Facility: [facility] Address: [address] [place] [address] Performed By: #### 5 7021-8 ####[facility] LABORATORYCLIA [id number] [place] [address] [place] Eosinophils/100 WBC (Bld) 2.8 % Normal [facility] Comment on above: Order Comment: Speci men Type: BLOOD SPECIMENOrdering Facility: [facility] Address: [address] [place] [address] Performed By: #### 5 7021-8 ####[facility]ORATORYCLIA [id number] [address] [place] Erythrocyte distribution width (RBC) [Ratio] 16.7 % High 11.5-15.0 [facility] Comment on above: Order Comment: Speci men Type: BLOOD SPECIMENOrdering Facility: [facility] Address: [address] [place] [address] Performed By: #### 5 7021-8 ####[facility] LABORATORYCLIA [id number] [address] [place] Hematocrit (Bld) [Volume fraction] 46.7 % Normal 39.0-51.0 [facility] Comment on above: Order Comment: Speci men Type: BLOOD SPECIMENOrdering Facility: [facility] Address: [address] [place] [address] Performed By: #### 5 7021-8 ####[facility] LABORATORYCLIA [id number] [place] [address] [place] Hemoglobin (Bld) [Mass/Vol] 15.4 g/dL Normal 13.0-17.0 [facility] Comment on above: Order Comment: Speci men Type: BLOOD SPECIMENOrdering Facility: [facility] Address: [address] [place] [address] Performed By: #### 5 7021-8 ####[facility] LABORATORYCLIA [id number] [place] [id number] [place] Immature granulocytes (Bld) [#/Vol] 10*3/uL Normal <0.10 [facility] Comment on above: Order Comment: Speci men Type: BLOOD SPECIMENOrdering Facility: [facility] Address: [address] [place] [address] Performed By: #### 5 7021-8 ####[facility]ORATORYCLIA [id number] [place] [address] [place] Immature granulocytes/100 WBC (Bld) 0.3 % Normal [facility] Comment on above: Order Comment: Speci men Type: BLOOD SPECIMENOrdering Facility: [facility] Address: [address] [place] [address] Performed By: #### 5 7021-8 ####[facility] LABORATORYCLIA [id number] [place] [address] [place] Lymphocytes (Bld) [#/Vol] 1.64 10*3/uL Normal 1.00-4.00 [facility] Comment on above: Order Comment: Speci men Type: BLOOD SPECIMENOrdering Facility: [facility] Address: [address] [place] [address] Performed By: #### 5 7021-8 ####[facility] LABORATORYCLIA [id number] [place] [address] [place] Lymphocytes/100 WBC (Bld) 24.5 % Normal [facility] Comment on above: Order Comment: Speci men Type: BLOOD SPECIMENOrdering Facility: [facility] Address: [address] [place] [address] Performed By: #### 5 7021-8 ####[facility] LABORATORYCLIA [id number] [place] [address] [place] MCH (RBC) [Entitic mass] 29.2 pg Normal 26.0-34.0 [facility] Comment on above: Order Comment: Speci men Type: BLOOD SPECIMENOrdering Facility: [facility] Address: [address] [place] [address] Performed By: #### 5 7021-8 ####[facility] LABORATORYCLIA [id number] [place] [address] [place] MCHC (RBC) [Mass/Vol] 33.0 g/dL Normal 30.5-36.0 [facility] Comment on above: Order Comment: Speci men Type: BLOOD SPECIMENOrdering Facility: [facility] Address: [address] [place] [address] Performed By: #### 5 7021-8 ####[facility] LABORATORYCLIA [id number] [place] [id number] [place] MCV (RBC) [Entitic vol] 88.6 fL Normal 80.0-100.0 [facility] Comment on above: Order Comment: Speci men Type: BLOOD SPECIMENOrdering Facility: [facility] Address: [address] [place] [address] Performed By: #### 5 7021-8 ####[facility] LABORATORYCLIA [id number] [place] [address] [place] Monocytes (Bld) [#/Vol] 0.51 10*3/uL Normal <0.87 [facility] Comment on above: Order Comment: Speci men Type: BLOOD SPECIMENOrdering Facility: [facility] Address: [address] [place] [address] Performed By: #### 5 7021-8 ####[facility] LABORATORYCLIA [id number] [place] [address] [place] Monocytes/100 WBC (Bld) 7.6 % Normal [facility] Comment on above: Order Comment: Speci men Type: BLOOD SPECIMENOrdering Facility: [facility] Address: [address] [place] [address] Performed By: #### 5 7021-8 ####[facility] LABORATORYCLIA [id number] [place] [address] [place] Neutrophils (Bld) [#/Vol] 4.30 10*3/uL Normal 1.45-7.50 [facility] Comment on above: Order Comment: Speci men Type: BLOOD SPECIMENOrdering Facility: [facility] Address: [address] [place] [address] Performed By: #### 5 7021-8 ####[facility] LABORATORYCLIA [id number] [place] [id number] [facility] OF THE[place] Neutrophils/100 WBC (Bld) 64.2 % Normal [facility] Comment on above: Order Comment: Speci men Type: BLOOD SPECIMENOrdering Facility: [facility] Address: [address] [place] [address] Performed By: #### 5 7021-8 ####[facility]ORATORYCLIA [id number] [place] [id number] [place] Nucleated RBC (Bld) [#/Vol] 10*3/uL Normal <0.01 [facility] Comment on above: Order Comment: Speci men Type: BLOOD SPECIMENOrdering Facility: [facility] Address: [address] [place] [address] Performed By: #### 5 7021-8 ####[facility]ORATORYCLIA [id number] [place] [address] [place] Nucleated RBC/100 WBC (Bld) [Ratio] 0.0 /100 WBC Normal [facility] Comment on above: Order Comment: Speci men Type: BLOOD SPECIMENOrdering Facility: [facility] Address: [address] [place] [address] Performed By: #### 5 7021-8 ####[facility]ORATORYCLIA [id number] [place] [address] [place] Platelet mean volume (Bld) [Entitic vol] 10.2 fL Normal 9.0-12.7 [facility] Comment on above: Order Comment: Speci men Type: BLOOD SPECIMENOrdering Facility: [facility] Address: [address] [place] [address] Performed By: #### 5 7021-8 ####[facility]ORATORYCLIA [id number] [place] [id number] [place] Platelets (Bld) [#/Vol] 312 10*3/uL Normal 150-400 [facility] Comment on above: Order Comment: Speci men Type: BLOOD SPECIMENOrdering Facility: [facility] Address: [address] [place] [address] Performed By: #### 5 7021-8 ####[facility]ORATORYCLIA [id number] [place] [id number] [place] RBC (Bld) [#/Vol] 5.27 10*6/uL Normal 4.20-6.00 [facility] Comment on above: Order Comment: Speci men Type: BLOOD SPECIMENOrdering Facility: [facility] Address: [facility] [place] [address] Performed By: #### 5 7021-8 ####[facility] LABORATORYCLIA [id number] [place] [id number] [place] WBC (Bld) [#/Vol] 6.70 10*3/uL Normal 3.70-11.00 [facility] Comment on above: Order Comment: Speci men Type: BLOOD SPECIMENOrdering Facility: [facility] Address: [address] [place] [address] Performed By: #### 5 7021-8 ####[facility] LABORATORYCLIA [id number] [place] [id number] [place] CNDSon 01-09-2025 CNDS Normal [facility] CONSULT PROGon 01-09-2025 CONSULT PROG Normal [facility] CONSULT PROG Normal [facility] Magnesium SerPl-mCncon 01-09 Magnesium [Mass/Vol] 2.4 mg/dL High 1.7-2.3 [facility] Comment on above: Order Comment: Speci men Type: BLOOD SPECIMENOrdering Facility: [facility] Address: [facility] [place] [address] Performed By: #### 1 9123-9, 2777-1, 40303-4 ####[facility] LABORATORYCLIA [id number] [place] [id number] [place] Phosphate SerPl-mCncon 01-09 Phosphate [Mass/Vol] 4.0 mg/dL Normal 2.7-4.8 [facility] Comment on above: Order Comment: Speci men Type: BLOOD SPECIMENOrdering Facility: [facility] Address: [address] [place] [address] Performed By: #### 1 9123-9, 2777-1, 50962-2 ####[facility] LABORATORYCLIA [id number] [place] [id number] [place] Basic metabolic 2000 panelon 01-08-2025 Anion gap [Moles/Vol] 13 mmol/L Normal 8-15 [facility] Comment on above: Order Comment: Speci men Type: BLOOD SPECIMENOrdering Facility: [facility] Address: [address] [place] [address] Performed By: #### 2 4321-2, , 2776-04 ####[facility] LABORATORYCLIA [id number] [place] [address] [place] Calcium [Mass/Vol] 10.1 mg/dL Normal 8.5-10.2 [facility] Comment on above: Order Comment: Speci men Type: BLOOD SPECIMENOrdering Facility: [facility] Address: [address] [place] [address] Performed By: #### 2 4321-2, , 2776-04 ####[facility] LABORATORYCLIA [id number] [place] [id number] [place] Chloride [Moles/Vol] 96 mmol/L Low 98-107 [facility] Comment on above: Order Comment: Speci men Type: BLOOD SPECIMENOrdering Facility: [facility] Address: [address] [place] [address] Performed By: #### 2 4321-2, , 2776-04 ####[facility] LABORATORYCLIA [id number] [place] [id number] [place] CO2 [Moles/Vol] 27 mmol/L Normal 22-30 [facility] Comment on above: Order Comment: Speci men Type: BLOOD SPECIMENOrdering Facility: [facility] Address: [address] [place] [address] Performed By: #### 2 4321-2, , 2776-04 ####[facility] LABORATORYCLIA [id number] [place] [id number] [place] Creatinine [Mass/Vol] 0.75 mg/dL Normal 0.73-1.22 [facility] Comment on above: Order Comment: Speci men Type: BLOOD SPECIMENOrdering Facility: [facility] Address: [address] [place] [address] Performed By: #### 2 4321-2, , 2776-04 ####[facility]ORATORYCLIA [id number] [place] [address] [place] eGFRcr SerPlBld CKD-EPI 2020 101 mL/min/1.73m??? Normal >=60 [facility] Comment on above: Order Comment: Concetta coronado Type: BLOOD SPECIMENOrdering Facility: [facility] Address: [address] [place] [address] Result Comment: Matilda mated Glomerular Filtration Rate (eGFR) is calculated using the 2020 CKD-EPI creatinine equation. This equation utilizes serum creatinine, sex, and age as parameters. The creatinine assay has traceable calibration to isotope dilution-mass spectrometry. Refer to KDIGO guidelines for clinical interpretation. In patients with unstable renal function, e.g. those with acute kidney injury, the eGFR may not accurately reflect actual GFR. Performed By: #### 2 4321-2, , 2776-04 ####[facility]ORATORYCLIA [id number] [place] [address] [place] Glucose [Mass/Vol] 114 mg/dL High 74-99 [facility] Comment on above: Order Comment: Concetta coronado Type: BLOOD SPECIMENOrdering Facility: [facility] Address: [address] [place] [address] Result Comment: The [place] [employer] (ADA) provides guidance for cutoff values for fasting glucose and random glucose. The ADA defines fasting as no caloric intake for at least 8 hours. Fasting plasma glucose results between 100 to 125 mg/dL indicate increased risk for diabetes (prediabetes).Fasting plasma glucose results greater than or equal to 126 mg/dL meet the criteria for diagnosis of diabetes. In the absence of unequivocal hyperglycemia, results should be confirmed by repeat testing. In a patient with classic symptoms of hyperglycemia or hyperglycemic crisis, random plasma glucose results greater than or equal to 200 mg/dL meet the criteria for diagnosis of diabetes.Reference: Standards of Medical Care in Diabetes 2016, [place] [employer]. Diabetes Care. 2016.39(Suppl 1). Performed By: #### 2 4321-2, , 2776-04 ####[facility]ORATORYCLIA [id number] [place] [address] [place] Potassium [Moles/Vol] 4.3 mmol/L Normal 3.7-5.1 [facility] Comment on above: Order Comment: Speci men Type: BLOOD SPECIMENOrdering Facility: [facility] Address: [address] [place] [address] Performed By: #### 2 4321-2, 56872-7, 2776-04 ####[facility] LABORATORYCLIA [id number] [place] [id number] [place] Sodium [Moles/Vol] 136 mmol/L Normal 136-144 [facility] Comment on above: Order Comment: Speci men Type: BLOOD SPECIMENOrdering Facility: [facility] Address: [address] [place] [address] Performed By: #### 2 4321-2, , 2776-04 ####[facility] LABORATORYCLIA [id number] [place] [address] [place] Urea nitrogen [Mass/Vol] 60 mg/dL High 9-24 [facility] Comment on above: Order Comment: Speci men Type: BLOOD SPECIMENOrdering Facility: [facility] Address: [address] [place] [address] Performed By: #### 2 4321-2, , 2776-04 ####[facility] LABORATORYCLIA [id number] [place] [id number] [place] CBC W Auto Differential pane l (Bld)on 01-08-2025 Basophils (Bld) [#/Vol] 0.03 10*3/uL Normal <0.11 [facility] Comment on above: Order Comment: Speci men Type: BLOOD SPECIMENOrdering Facility: [facility] Address: [address] [place] [address] Performed By: #### 5 7021-8 ####[facility]ORATORYCLIA [id number] [place] [address] [place] Basophils/100 WBC (Bld) 0.4 % Normal [facility] Comment on above: Order Comment: Speci men Type: BLOOD SPECIMENOrdering Facility: [facility] Address: [address] [place] [address] Performed By: #### 5 7021-8 ####[facility] LABORATORYCLIA [id number] [place] [id number] [facility] THEO Differential cell count method Nom (Bld) Auto Normal [facility] Comment on above: Order Comment: Speci men Type: BLOOD SPECIMENOrdering Facility: [facility] Address: [address] [place] [address] Performed By: #### 5 7021-8 ####[facility] LABORATORYCLIA [id number] [place] [address] [place] Eosinophils (Bld) [#/Vol] 0.23 10*3/uL Normal <0.46 [facility] Comment on above: Order Comment: Speci men Type: BLOOD SPECIMENOrdering Facility: [facility] Address: [address] [place] [address] Performed By: #### 5 7021-8 ####[facility] LABORATORYCLIA [id number] [address] [place] Eosinophils/100 WBC (Bld) 2.9 % Normal [facility] Comment on above: Order Comment: Speci men Type: BLOOD SPECIMENOrdering Facility: [facility] Address: [address] [place] [address] Performed By: #### 5 7021-8 ####[facility] LABORATORYCLIA [id number] [place] [id number] [place] Erythrocyte distribution width (RBC) [Ratio] 16.9 % High 11.5-15.0 [facility] Comment on above: Order Comment: Speci men Type: BLOOD SPECIMENOrdering Facility: [facility] Address: [address] [place] [address] Performed By: #### 5 7021-8 ####[facility] LABORATORYCLIA [id number] [address] [place] Hematocrit (Bld) [Volume fraction] 49.5 % Normal 39.0-51.0 [facility] [facility] Comment on above: Order Comment: Speci men Type: BLOOD SPECIMENOrdering Facility: [facility] Address: [address] [place] [address] Performed By: #### 5 7021-8 ####[facility] LABORATORYCLIA [id number] [place] [id number] [place] Hemoglobin (Bld) [Mass/Vol] 15.6 g/dL Normal 13.0-17.0 [facility] Comment on above: Order Comment: Speci men Type: BLOOD SPECIMENOrdering Facility: [facility] Address: [address] [place] [address] Performed By: #### 5 7021-8 ####RU[facility] LABORATORYCLIA [id number] [place] [id number] [place] Immature granulocytes (Bld) [#/Vol] 10*3/uL Normal <0.10 [facility] Comment on above: Order Comment: Speci men Type: BLOOD SPECIMENOrdering Facility: [facility] Address: [address] [place] [address] Performed By: #### 5 7021-8 ####RUBY LABORATORYCLIA [id number] [place] [id number] [place] Immature granulocytes/100 WBC (Bld) 0.3 % Normal [facility] Comment on above: Order Comment: Speci men Type: BLOOD SPECIMENOrdering Facility: [facility] Address: [address] [place] [address] Performed By: #### 5 7021-8 ####RUBY LABORATORYCLIA [id number] [place] [id number] [place] Lymphocytes (Bld) [#/Vol] 2.18 10*3/uL Normal 1.00-4.00 [facility] Comment on above: Order Comment: Speci men Type: BLOOD SPECIMENOrdering Facility: [facility] Address: [address] [place] [address] Performed By: #### 5 7021-8 ####[facility] LABORATORYCLIA [id number] [place] [id number] [place] Lymphocytes/100 WBC (Bld) 27.5 % Normal [facility] Comment on above: Order Comment: Speci men Type: BLOOD SPECIMENOrdering Facility: [facility] Address: [address] [place] [address] Performed By: #### 5 7021-8 ####RUBY LABORATORYCLIA [id number] [address] [place] [facility] MCH (RBC) [Entitic mass] 28.2 pg Normal 26.0-34.0 [facility] Comment on above: Order Comment: Speci men Type: BLOOD SPECIMENOrdering Facility: [facility] Address: [address] [place] [address] Performed By: #### 5 7021-8 ####[facility] LABORATORYCLIA [id number] [place] [address] [place] MCHC (RBC) [Mass/Vol] 31.5 g/dL Normal 30.5-36.0 [facility] Comment on above: Order Comment: Speci men Type: BLOOD SPECIMENOrdering Facility: [facility] Address: [address] [place] [address] Performed By: #### 5 7021-8 ####[facility] LABORATORYCLIA [id number] [address] [place] MCV (RBC) [Entitic vol] 89.4 fL Normal 80.0-100.0 [facility] Comment on above: Order Comment: Speci men Type: BLOOD SPECIMENOrdering Facility: [facility] Address: [address] [place] [address] Performed By: #### 5 7021-8 ####[facility] LABORATORYCLIA [id number] [address] [place] Monocytes (Bld) [#/Vol] 0.70 10*3/uL Normal <0.87 [facility] Comment on above: Order Comment: Speci men Type: BLOOD SPECIMENOrdering Facility: [facility] Address: [address] [place] [address] Performed By: #### 5 7021-8 ####[facility] LABORATORYCLIA [id number] [place] [address] [place] Monocytes/100 WBC (Bld) 8.8 % Normal [facility] Comment on above: Order Comment: Speci men Type: BLOOD SPECIMENOrdering Facility: [facility] Address: [address] [place] [address] Performed By: #### 5 7021-8 ####RUBY LABORATORYCLIA [id number] [place] [id number] [place] Neutrophils (Bld) [#/Vol] 4.77 10*3/uL Normal 1.45-7.50 [facility] Comment on above: Order Comment: Speci men Type: BLOOD SPECIMENOrdering Facility: [facility] Address: [address] [place] [address] Performed By: #### 5 7021-8 ####RUBY LABORATORYCLIA [id number] [place] [address] [place] Neutrophils/100 WBC (Bld) 60.1 % Normal [facility] Comment on above: Order Comment: Speci men Type: BLOOD SPECIMENOrdering Facility: [facility] Address: [address] [place] [address] Performed By: #### 5 7021-8 ####RUBY LABORATORYCLIA [id number] [place] [id number] [place] Nucleated RBC (Bld) [#/Vol] 10*3/uL Normal <0.01 [facility] Comment on above: Order Comment: Speci men Type: BLOOD SPECIMENOrdering Facility: [facility] Address: [address] [place] [address] Performed By: #### 5 7021-8 ####[facility] LABORATORYCLIA [id number] [place] [id number] [place] Nucleated RBC/100 WBC (Bld) [Ratio] 0.0 /100 WBC Normal [facility] Comment on above: Order Comment: Speci men Type: BLOOD SPECIMENOrdering Facility: [facility] Address: [address] [place] [address] Performed By: #### 5 7021-8 ####[facility] LABORATORYCLIA [id number] [place] [id number] [place] Platelet mean volume (Bld) [Entitic vol] 9.5 fL Normal 9.0-12.7 [facility] Comment on above: Order Comment: Speci men Type: BLOOD SPECIMENOrdering Facility: [facility] Address: [address] [place] [address] Performed By: #### 5 7021-8 ####[facility] LABORATORYCLIA [id number] [place] [id number] [place] Platelets (Bld) [#/Vol] 318 10*3/uL Normal 150-400 [facility] Comment on above: Order Comment: Speci men Type: BLOOD SPECIMENOrdering Facility: [facility] Address: [address] [place] [address] Performed By: #### 5 7021-8 ####[facility] LABORATORYCLIA [id number] [place] [address] [place] RBC (Bld) [#/Vol] 5.54 10*6/uL Normal 4.20-6.00 [facility] Comment on above: Order Comment: Speci men Type: BLOOD SPECIMENOrdering Facility: [facility] Address: [address] [place] [address] Performed By: #### 5 7021-8 ####[facility] LABORATORYCLIA [id number] [place] [id number] [place] WBC (Bld) [#/Vol] 7.93 10*3/uL Normal 3.70-11.00 [facility] Comment on above: Order Comment: Speci men Type: BLOOD SPECIMENOrdering Facility: [facility] Address: [address] [place] [address] Performed By: #### 5 7021-8 ####[facility] LABORATORYCLIA [id number] [place] [id number] [place] CONSULT PROGon 01-08-2025 CONSULT PROG Normal [facility] Magnesium SerPl-mCncon 01-08 Magnesium [Mass/Vol] 2.2 mg/dL Normal 1.7-2.3 [facility] Comment on above: Order Comment: Speci men Type: BLOOD SPECIMENOrdering Facility: [facility] Address: [address] [place] [address] Performed By: #### 2 4321-2, , 2776-04 ####RUBY LABORATORYCLIA [id number] [place] [address] [place] Phosphate SerPl-mCncon 01-08 Phosphate [Mass/Vol] 3.1 mg/dL Normal 2.7-4.8 [facility] Comment on above: Order Comment: Speci men Type: BLOOD SPECIMENOrdering Facility: [facility] Address: [address] [place] [address] Performed By: #### 2 4321-2, , 2776-04 ####RU[facility] LABORATORYCLIA [id number] [place] [id number] [place] Basic metabolic 2000 panelon 01-07-2025 Anion gap [Moles/Vol] 14 mmol/L Normal 8-15 [facility] Comment on above: Order Comment: Speci men Type: BLOOD SPECIMENOrdering Facility: [facility] Address: [address] [place] [address] Performed By: #### 2 4321-2, 2776-04, ####RUBY LABORATORYCLIA [id number] [place] [id number] [place] Calcium [Mass/Vol] 9.8 mg/dL Normal 8.5-10.2 [facility] Comment on above: Order Comment: Speci men Type: BLOOD SPECIMENOrdering Facility: [facility] Address: [address] [place] [id number] Performed By: #### 2 4321-2, 2776-04, ####RU[facility] LABORATORYCLIA [id number] [place] [id number] [place] Chloride [Moles/Vol] 93 mmol/L Low 98-107 [facility] Comment on above: Order Comment: Speci men Type: BLOOD SPECIMENOrdering Facility: [facility] Address: [address] [place] [address] Performed By: #### 2 4321-2, 27710-04, ####[facility] LABORATORYCLIA [id number] [place] [id number] [place] CO2 [Moles/Vol] 27 mmol/L Normal 22-30 [facility] Comment on above: Order Comment: Speci men Type: BLOOD SPECIMENOrdering Facility: [facility] Address: [address] [place] [address] Performed By: #### 2 4321-2, 2776-04, ####[facility] LABORATORYCLIA [id number] [place] [id number] [place] Creatinine [Mass/Vol] 0.80 mg/dL Normal 0.73-1.22 [facility] Comment on above: Order Comment: Speci men Type: BLOOD SPECIMENOrdering Facility: [facility] Address: [address] [place] [address] Performed By: #### 2 4321-2, 2776-04, ####[facility] LABORATORYCLIA [id number] [place] [id number] [place] eGFRcr SerPlBld CKD-EPI 2020 99 mL/min/1.73m??? Normal >=60 [facility] Comment on above: Order Comment: Speci men Type: BLOOD SPECIMENOrdering Facility: [facility] Address: [address] [place] [address] Result Comment: Matilda mated Glomerular Filtration Rate (eGFR) is calculated using the 2020 CKD-EPI creatinine equation. This equation utilizes serum creatinine, sex, and age as parameters. The creatinine assay has traceable calibration to isotope dilution-mass spectrometry. Refer to KDIGO guidelines for clinical interpretation. In patients with unstable renal function, e.g. those with acute kidney injury, the eGFR may not accurately reflect actual GFR. Performed By: #### 2 4321-2, 2777-, ####[facility] LABORATORYCLIA [id number] [place] [address] [place] Glucose [Mass/Vol] 114 mg/dL High 74-99 [facility] Comment on above: Order Comment: [place] cliff Type: BLOOD SPECIMENOrdering Facility: [facility] Address: [address] [place] [address] Result Comment: The [place] [employer] (ADA) provides guidance for cutoff values for fasting glucose and random glucose. The ADA defines fasting as no caloric intake for at least 8 hours. Fasting plasma glucose results between 100 to 125 mg/dL indicate increased risk for diabetes (prediabetes).Fasting plasma glucose results greater than or equal to 126 mg/dL meet the criteria for diagnosis of diabetes. In the absence of unequivocal hyperglycemia, results should be confirmed by repeat testing. In a patient with classic symptoms of hyperglycemia or hyperglycemic crisis, random plasma glucose results greater than or equal to 200 mg/dL meet the criteria for diagnosis of diabetes.Reference: Standards of Medical Care in Diabetes 2016, [place] [employer]. Diabetes Care. 2016.39(Suppl 1). Performed By: #### 2 4321-2, 2776-04, ####[facility] LABORATORYCLIA [id number] [place] [address] [place] Potassium [Moles/Vol] 4.8 mmol/L Normal 3.7-5.1 [facility] Comment on above: Order Comment: [place] cliff Type: BLOOD SPECIMENOrdering Facility: [facility] Address: [address] [place] [address] Performed By: #### 2 4321-2, 2776-04, ####[facility] LABORATORYCLIA [id number] [place] [id number] [place] Sodium [Moles/Vol] 134 mmol/L Low 136-144 [facility] Comment on above: Order Comment: [place] Type: BLOOD SPECIMENOrdering Facility: [facility] Address: [address] [place] [address] Performed By: #### 2 4321-2, 2776-04, ####[facility] LABORATORYCLIA [id number] [place] [address] [place] Urea nitrogen [Mass/Vol] 59 mg/dL High 9-24 [facility] Comment on above: Order Comment: Speci men Type: BLOOD SPECIMENOrdering Facility: [facility] Address: [address] [place] [address] Performed By: #### 2 4321-2, 2777-1, 61811-2 ####RU[facility] LABORATORYCLIA [id number] [place] [address] [place] CBC W Auto Differential pane l (Bld)on 01-07-2025 Basophils (Bld) [#/Vol] 0.05 10*3/uL Normal <0.11 [facility] Comment on above: Order Comment: Speci men Type: BLOOD SPECIMENOrdering Facility: [facility] Address: [address] [place] [address] Performed By: #### 5 7021-8 ####RU[facility] LABORATORYCLIA [id number] [address] [place] Basophils/100 WBC (Bld) 0.6 % Normal [facility] Comment on above: Order Comment: Speci men Type: BLOOD SPECIMENOrdering Facility: [facility] Address: [address] [place] [address] Performed By: #### 5 7021-8 ####[facility] LABORATORYCLIA [id number] [address] [place] Differential cell count method Nom (Bld) Auto Normal [facility] Comment on above: Order Comment: Speci men Type: BLOOD SPECIMENOrdering Facility: [facility] Address: [address] [place] [address] Performed By: #### 5 7021-8 ####[facility] LABORATORYCLIA [id number] [place] [address] [place] Eosinophils (Bld) [#/Vol] 0.52 10*3/uL High <0.46 [facility] Comment on above: Order Comment: Speci men Type: BLOOD SPECIMENOrdering Facility: [facility] Address: [address] [place] [address] Performed By: #### 5 7021-8 ####[facility] LABORATORYCLIA [id number] [address] [place] Eosinophils/100 WBC (Bld) 6.4 % Normal [facility] Comment on above: Order Comment: Speci men Type: BLOOD SPECIMENOrdering Facility: [facility] Address: [address] [place] [address] Performed By: #### 5 7021-8 ####[facility] LABORATORYCLIA [id number] [place] [id number] [place] Erythrocyte distribution width (RBC) [Ratio] 16.5 % High 11.5-15.0 [facility] Comment on above: Order Comment: Speci men Type: BLOOD SPECIMENOrdering Facility: [facility] Address: [address] [place] [address] Performed By: #### 5 7021-8 ####[facility] LABORATORYCLIA [id number] [address] [place] Hematocrit (Bld) [Volume fraction] 49.1 % Normal 39.0-51.0 [facility] Comment on above: Order Comment: Speci men Type: BLOOD SPECIMENOrdering Facility: [facility] Address: [address] [place] [address] Performed By: #### 5 7021-8 ####[facility] LABORATORYCLIA [id number] [place] [address] [place] Hemoglobin (Bld) [Mass/Vol] 15.7 g/dL Normal 13.0-17.0 [facility] Comment on above: Order Comment: Speci men Type: BLOOD SPECIMENOrdering Facility: [facility] Address: [address] [place] [address] Performed By: #### 5 7021-8 ####[facility] LABORATORYCLIA [id number] [place] [id number] [place] Immature granulocytes (Bld) [#/Vol] 0.03 10*3/uL Normal <0.10 [facility] Comment on above: Order Comment: Speci men Type: BLOOD SPECIMENOrdering Facility: [facility] Address: [address] [place] [address] Performed By: #### 5 7021-8 ####RU[facility] LABORATORYCLIA [id number] [place] [address] [place] Immature granulocytes/100 WBC (Bld) 0.4 % Normal [facility] Comment on above: Order Comment: Speci men Type: BLOOD SPECIMENOrdering Facility: [facility] Address: [address] [place] [address] Performed By: #### 5 7021-8 ####[facility] LABORATORYCLIA [id number] [place] [address] [place] Lymphocytes (Bld) [#/Vol] 2.02 10*3/uL Normal 1.00-4.00 [facility] Comment on above: Order Comment: Speci men Type: BLOOD SPECIMENOrdering Facility: [facility] Address: [address] [place] [address] Performed By: #### 5 7021-8 ####[facility] LABORATORYCLIA [id number] [address] [place] Lymphocytes/100 WBC (Bld) 25.0 % Normal [facility] Comment on above: Order Comment: Speci men Type: BLOOD SPECIMENOrdering Facility: [facility] Address: [address] [place] [address] Performed By: #### 5 7021-8 ####[facility] LABORATORYCLIA [id number] [place] [address] [place] MCH (RBC) [Entitic mass] 28.3 pg Normal 26.0-34.0 [facility] Comment on above: Order Comment: Speci men Type: BLOOD SPECIMENOrdering Facility: [facility] Address: [address] [place] [address] Performed By: #### 5 7021-8 ####[facility] LABORATORYCLIA [id number] [place] [address] [place] MCHC (RBC) [Mass/Vol] 32.0 g/dL Normal 30.5-36.0 [facility] Comment on above: Order Comment: Speci men Type: BLOOD SPECIMENOrdering Facility: [facility] Address: [address] [place] [address] Performed By: #### 5 7021-8 ####[facility] LABORATORYCLIA [id number] [place] [id number] [place] MCV (RBC) [Entitic vol] 88.6 fL Normal 80.0-100.0 [facility] Comment on above: Order Comment: Speci men Type: BLOOD SPECIMENOrdering Facility: [facility] Address: [address] [place] [address] Performed By: #### 5 7021-8 ####[facility] LABORATORYCLIA [id number] [place] [id number] [place] Monocytes (Bld) [#/Vol] 0.84 10*3/uL Normal <0.87 [facility] Comment on above: Order Comment: Speci men Type: BLOOD SPECIMENOrdering Facility: [facility] Address: [address] [place] [address] Performed By: #### 5 7021-8 ####[facility] LABORATORYCLIA [id number] [place] [address] [place] Monocytes/100 WBC (Bld) 10.4 % Normal [facility] Comment on above: Order Comment: Speci men Type: BLOOD SPECIMENOrdering Facility: [facility] Address: [address] [place] [address] Performed By: #### 5 7021-8 ####[facility] LABORATORYCLIA [id number] [place] [id number] [place] Neutrophils (Bld) [#/Vol] 4.61 10*3/uL Normal 1.45-7.50 [facility] Comment on above: Order Comment: Speci men Type: BLOOD SPECIMENOrdering Facility: [facility] Address: [address] [place] [address] Performed By: #### 5 7021-8 ####[facility] LABORATORYCLIA [id number] [address] [place] Neutrophils/100 WBC (Bld) 57.2 % Normal [facility] Comment on above: Order Comment: Speci men Type: BLOOD SPECIMENOrdering Facility: [facility] Address: [address] [place] [address] Performed By: #### 5 7021-8 ####[facility] LABORATORYCLIA [id number] [place] [id number] [place] Nucleated RBC (Bld) [#/Vol] 10*3/uL Normal <0.01 [facility] Comment on above: Order Comment: Speci men Type: BLOOD SPECIMENOrdering Facility: [facility] Address: [address] [place] [address] Performed By: #### 5 7021-8 ####[facility] LABORATORYCLIA [id number] [place] [address] [place] Nucleated RBC/100 WBC (Bld) [Ratio] 0.0 /100 WBC Normal [facility] Comment on above: Order Comment: Speci men Type: BLOOD SPECIMENOrdering Facility: [facility] Address: [address] [place] [address] Performed By: #### 5 7021-8 ####[facility] LABORATORYCLIA [id number] [place] [address] [place] Platelet mean volume (Bld) [Entitic vol] 9.6 fL Normal 9.0-12.7 [facility] Comment on above: Order Comment: Speci men Type: BLOOD SPECIMENOrdering Facility: [facility] Address: [address] [place] [address] Performed By: #### 5 7021-8 ####[facility] LABORATORYCLIA [id number] [place] [id number] [place] Platelets (Bld) [#/Vol] 309 10*3/uL Normal 150-400 [facility] Comment on above: Order Comment: Speci men Type: BLOOD SPECIMENOrdering Facility: [facility] Address: [address] [place] [address] Performed By: #### 5 7021-8 ####[facility] LABORATORYCLIA [id number] [place] [id number] [place] RBC (Bld) [#/Vol] 5.54 10*6/uL Normal 4.20-6.00 [facility] Comment on above: Order Comment: Speci men Type: BLOOD SPECIMENOrdering Facility: [facility] Address: [address] [place] [address] Performed By: #### 5 7021-8 ####[facility] LABORATORYCLIA [id number] [place] [address] [place] WBC (Bld) [#/Vol] 8.07 10*3/uL Normal 3.70-11.00 [facility] Comment on above: Order Comment: Speci men Type: BLOOD SPECIMENOrdering Facility: [facility] Address: [address] [place] [address] Performed By: #### 5 7021-8 ####[facility] LABORATORYCLIA [id number] [place] [address] [place] CONSULT PROGon 01-07-2025 CONSULT PROG Normal [facility] Magnesium SerPl-mCncon 01-07 Magnesium [Mass/Vol] 2.2 mg/dL Normal 1.7-2.3 [facility] Comment on above: Order Comment: Speci men Type: BLOOD SPECIMENOrdering Facility: [facility] Address: [address] [place] [address] Performed By: #### 2 4321-2, 2777-, ####[facility] LABORATORYCLIA [id number] [place] [address] [place] Phosphate SerPl-mCncon 01-07 Phosphate [Mass/Vol] 3.1 mg/dL Normal 2.7-4.8 [facility] Comment on above: Order Comment: Speci men Type: BLOOD SPECIMENOrdering Facility: [facility] Address: [address] [place] [address] Performed By: #### 2 4321-2, 2777-1, 21682-8 ####[facility] LABORATORYCLIA [id number] [place] [id number] [place] THERAPY NTon 01-07-2025 THERAPY NT Normal [facility] Basic metabolic 2000 panelon 01-06-2025 Anion gap [Moles/Vol] 12 mmol/L Normal 8-15 [facility] Comment on above: Order Comment: Speci men Type: BLOOD SPECIMENOrdering Facility: [facility] Address: [address] [place] [address] Performed By: #### 2 777-1, , ####[facility] LABORATORYCLIA [id number] [place] [address] [place] Calcium [Mass/Vol] 9.5 mg/dL Normal 8.5-10.2 [facility] Comment on above: Order Comment: Speci men Type: BLOOD SPECIMENOrdering Facility: [facility] Address: [facility] [place] [address] Performed By: #### 2 777-1, , ####[facility] LABORATORYCLIA [id number] [place] [id number] [place] Chloride [Moles/Vol] 92 mmol/L Low 98-107 [facility] Comment on above: Order Comment: Speci men Type: BLOOD SPECIMENOrdering Facility: [facility] Address: [address] [place] [address] Performed By: #### 2 777-1, , ####RUBY LABORATORYCLIA [id number] [place] [id number] [place] CO2 [Moles/Vol] 32 mmol/L High 22-30 [facility] Comment on above: Order Comment: Speci men Type: BLOOD SPECIMENOrdering Facility: [facility] Address: [address] [place] [address] Performed By: #### 2 777-1, , ####RUBY LABORATORYCLIA [id number] [place] [id number] [place] Creatinine [Mass/Vol] 1.01 mg/dL Normal 0.73-1.22 [facility] Comment on above: Order Comment: Speci men Type: BLOOD SPECIMENOrdering Facility: [facility] Address: [address] [place] [address] Performed By: #### 2 777-1, 53435-3, ####[facility] LABORATORYCLIA [id number] [place] [address] [place] eGFRcr SerPlBld CKD-EPI 2020 83 mL/min/1.73m??? Normal >=60 [facility] Comment on above: Order Comment: Concetta coronado Type: BLOOD SPECIMENOrdering Facility: [facility] Address: [address] [place] [address] Result Comment: Matilda mated Glomerular Filtration Rate (eGFR) is calculated using the 2020 CKD-EPI creatinine equation. This equation utilizes serum creatinine, sex, and age as parameters. The creatinine assay has traceable calibration to isotope dilution-mass spectrometry. Refer to KDIGO guidelines for clinical interpretation. In patients with unstable renal function, e.g. those with acute kidney injury, the eGFR may not accurately reflect actual GFR. Performed By: #### 2 777-1, 80572-8, ####[facility] LABORATORYCLIA [id number] [place] [address] [place] [facility] Glucose [Mass/Vol] 94 mg/dL Normal 74-99 [facility] Comment on above: Order Comment: Concetta coronado Type: BLOOD SPECIMENOrdering Facility: [facility] Address: [address] [place] [address] Result Comment: The [place] Diabetes Association (ADA) provides guidance for cutoff values for fasting glucose and random glucose. The ADA defines fasting as no caloric intake for at least 8 hours. Fasting plasma glucose results between 100 to 125 mg/dL indicate increased risk for diabetes (prediabetes).Fasting plasma glucose results greater than or equal to 126 mg/dL meet the criteria for diagnosis of diabetes. In the absence of unequivocal hyperglycemia, results should be confirmed by repeat testing. In a patient with classic symptoms of hyperglycemia or hyperglycemic crisis, random plasma glucose results greater than or equal to 200 mg/dL meet the criteria for diagnosis of diabetes.Reference: Standards of Medical Care in Diabetes 2016, [place] [employer] Association. Diabetes Care. 2016.39(Suppl 1). Performed By: #### 2 777-1, 06317-8, ####[facility] LABORATORYCLIA [id number] [place] [address] [place] Potassium [Moles/Vol] 3.5 mmol/L Low 3.7-5.1 [facility] Comment on above: Order Comment: Speci men Type: BLOOD SPECIMENOrdering Facility: [facility] Address: [address] [place] [address] Performed By: #### 2 777-1, 67845-4, ####[facility] LABORATORYCLIA [id number] [place] [id number] [place] Sodium [Moles/Vol] 136 mmol/L Normal 136-144 [facility] Comment on above: Order Comment: Speci men Type: BLOOD SPECIMENOrdering Facility: [facility] Address: [address] [place] [address] Performed By: #### 2 777-1, 86519-6, ####[facility] LABORATORYCLIA [id number] [place] [id number] [place] Urea nitrogen [Mass/Vol] 53 mg/dL High 9-24 [facility] Comment on above: Order Comment: Speci men Type: BLOOD SPECIMENOrdering Facility: [facility] Address: [address] [place] [address] Performed By: #### 2 777-1, , ####[facility] LABORATORYCLIA [id number] [place] [id number] [place] CASE MANAGEMon 01-06-2025 CASE MANAGEM Normal [facility] CBC W Auto Differential pane l (Bld)on 01-06-2025 Basophils (Bld) [#/Vol] 0.05 10*3/uL Normal <0.11 [facility] Comment on above: Order Comment: Speci men Type: BLOOD SPECIMENOrdering Facility: [facility] Address: [address] [place] [address] Performed By: #### 5 7021-8 ####[facility] LABORATORYCLIA [id number] [place] [address] [place] Basophils/100 WBC (Bld) 0.6 % Normal [facility] Comment on above: Order Comment: Speci men Type: BLOOD SPECIMENOrdering Facility: [facility] Address: [address] [place] [address] Performed By: #### 5 7021-8 ####[facility] LABORATORYCLIA [id number] [place] [address] [place] Differential cell count method Nom (Bld) Auto Normal [facility] Comment on above: Order Comment: Speci men Type: BLOOD SPECIMENOrdering Facility: [facility] Address: [address] [place] [address] Performed By: #### 5 7021-8 ####[facility] LABORATORYCLIA [id number] [place] [address] [place] Eosinophils (Bld) [#/Vol] 0.64 10*3/uL High <0.46 [facility] Comment on above: Order Comment: Speci men Type: BLOOD SPECIMENOrdering Facility: [facility] Address: [address] [place] [address] Performed By: #### 5 7021-8 ####RUBY LABORATORYCLIA [id number] [place] [address] [place] Eosinophils/100 WBC (Bld) 7.8 % Normal [facility] Comment on above: Order Comment: Speci men Type: BLOOD SPECIMENOrdering Facility: [facility] Address: [address] [place] [address] Performed By: #### 5 7021-8 ####RUBY LABORATORYCLIA [id number] [place] [address] [place] Erythrocyte distribution width (RBC) [Ratio] 16.4 % High 11.5-15.0 [facility] Comment on above: Order Comment: Speci men Type: BLOOD SPECIMENOrdering Facility: [facility] Address: [address] [place] [address] Performed By: #### 5 7021-8 ####[facility] LABORATORYCLIA [id number] [place] [address] [place] Hematocrit (Bld) [Volume fraction] 45.2 % Normal 39.0-51.0 [facility] Comment on above: Order Comment: Speci men Type: BLOOD SPECIMENOrdering Facility: [facility] Address: [address] [place] [address] Performed By: #### 5 7021-8 ####[facility] LABORATORYCLIA [id number] [place] [id number] [place] Hemoglobin (Bld) [Mass/Vol] 14.9 g/dL Normal 13.0-17.0 [facility] Comment on above: Order Comment: Speci men Type: BLOOD SPECIMENOrdering Facility: [facility] Address: [address] [place] [address] Performed By: #### 5 7021-8 ####[facility] LABORATORYCLIA [id number] [place] [address] [place] Immature granulocytes (Bld) [#/Vol] 0.03 10*3/uL Normal <0.10 [facility] Comment on above: Order Comment: Speci men Type: BLOOD SPECIMENOrdering Facility: [facility] Address: [address] [place] [address] Performed By: #### 5 7021-8 ####[facility] LABORATORYCLIA [id number] [place] [address] [place] Immature granulocytes/100 WBC (Bld) 0.4 % Normal [facility] Comment on above: Order Comment: Speci men Type: BLOOD SPECIMENOrdering Facility: [facility] Address: [address] [place] [address] Performed By: #### 5 7021-8 ####[facility] LABORATORYCLIA [id number] [place] [id number] [place] Lymphocytes (Bld) [#/Vol] 1.99 10*3/uL Normal 1.00-4.00 [facility] Comment on above: Order Comment: Speci men Type: BLOOD SPECIMENOrdering Facility: [facility] Address: [address] [place] [address] Performed By: #### 5 7021-8 ####[facility] LABORATORYCLIA [id number] [place] [id number] [place] Lymphocytes/100 WBC (Bld) 24.3 % Normal [facility] Comment on above: Order Comment: Speci men Type: BLOOD SPECIMENOrdering Facility: [facility] Address: [address] [place] [address] Performed By: #### 5 7021-8 ####RUBY LABORATORYCLIA [id number] [address] [place] MCH (RBC) [Entitic mass] 28.9 pg Normal 26.0-34.0 [facility] Comment on above: Order Comment: Speci men Type: BLOOD SPECIMENOrdering Facility: [facility] Address: [address] [place] [address] Performed By: #### 5 7021-8 ####RUBY LABORATORYCLIA [id number] [place] [address] [place] MCHC (RBC) [Mass/Vol] 33.0 g/dL Normal 30.5-36.0 [facility] Comment on above: Order Comment: Speci men Type: BLOOD SPECIMENOrdering Facility: [facility] Address: [address] [place] [address] Performed By: #### 5 7021-8 ####RUBY LABORATORYCLIA [id number] [address] MCV (RBC) [Entitic vol] 87.8 fL Normal 80.0-100.0 [facility] Comment on above: Order Comment: Speci men Type: BLOOD SPECIMENOrdering Facility: [facility] Address: [address] [place] [address] Performed By: #### 5 7021-8 ####RUBY LABORATORYCLIA [id number] [address] [place] Monocytes (Bld) [#/Vol] 0.87 10*3/uL High <0.87 [facility] Comment on above: Order Comment: Speci men Type: BLOOD SPECIMENOrdering Facility: [facility] Address: [address] [place] [address] Performed By: #### 5 7021-8 ####RUBY LABORATORYCLIA [id number] [place] [id number] [place] Monocytes/100 WBC (Bld) 10.6 % Normal [facility] Comment on above: Order Comment: Speci men Type: BLOOD SPECIMENOrdering Facility: [facility] Address: [address] [place] [address] Performed By: #### 5 7021-8 ####RUBY LABORATORYCLIA [id number] [place] [id number] [place] Neutrophils (Bld) [#/Vol] 4.62 10*3/uL Normal 1.45-7.50 [facility] Comment on above: Order Comment: Speci men Type: BLOOD SPECIMENOrdering Facility: [facility] Address: [address] [place] [address] Performed By: #### 5 7021-8 ####RUBY LABORATORYCLIA [id number] [place] [address] [place] Neutrophils/100 WBC (Bld) 56.3 % Normal [facility] Comment on above: Order Comment: Speci men Type: BLOOD SPECIMENOrdering Facility: [facility] Address: [address] [place] [address] Performed By: #### 5 7021-8 ####RUBY LABORATORYCLIA [id number] [place] [id number] [place] Nucleated RBC (Bld) [#/Vol] 10*3/uL Normal <0.01 [facility] Comment on above: Order Comment: Speci men Type: BLOOD SPECIMENOrdering Facility: [facility] Address: [address] [place] [address] Performed By: #### 5 7021-8 ####RUBY LABORATORYCLIA [id number] [place] [id number] [place] Nucleated RBC/100 WBC (Bld) [Ratio] 0.0 /100 WBC Normal [facility] Comment on above: Order Comment: Speci men Type: BLOOD SPECIMENOrdering Facility: [facility] Address: [address] [place] [address] Performed By: #### 5 7021-8 ####RUBY LABORATORYCLIA [id number] [place] [id number] [place] Platelet mean volume (Bld) [Entitic vol] 9.9 fL Normal 9.0-12.7 [facility] Comment on above: Order Comment: Speci men Type: BLOOD SPECIMENOrdering Facility: [facility] Address: [address] [place] [address] Performed By: #### 5 7021-8 ####[facility] LABORATORYCLIA [id number] [place] [id number] [place] Platelets (Bld) [#/Vol] 319 10*3/uL Normal 150-400 [facility] Comment on above: Order Comment: Speci men Type: BLOOD SPECIMENOrdering Facility: [facility] Address: [address] [place] [address] Performed By: #### 5 7021-8 ####[facility] LABORATORYCLIA [id number] [place] [address] [place] RBC (Bld) [#/Vol] 5.15 10*6/uL Normal 4.20-6.00 [facility] Comment on above: Order Comment: Speci men Type: BLOOD SPECIMENOrdering Facility: [facility] Address: [address] [place] [address] Performed By: #### 5 7021-8 ####[facility] LABORATORYCLIA [id number] [place] [id number] [place] WBC (Bld) [#/Vol] 8.20 10*3/uL Normal 3.70-11.00 [facility] Comment on above: Order Comment: Speci men Type: BLOOD SPECIMENOrdering Facility: [facility] Address: [address] [place] [address] Performed By: #### 5 7021-8 ####[facility] LABORATORYCLIA [id number] [place] [id number] [place] Mehrdad 01-06-2025 TURNERN Telephone ([facility]) JAYLEN MEJIA ([id number]) 1960 M [facility] Date Time Provider Department 01/06/25 MIGUEL VASQUES [facility] During your visit today, we recorded the following information about you: Madhavi Patient Chili Pepper Grinder Rula 01/06/2025 3:28 PM Signed Referring provider, if any (patient's can self-refer): Miguel Vasques Primary diagnosis or reason being seen: 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 Yes Any recent notes pertaining to palliative care referral, please add here: patient is currently hospitalized Madhavi Patient Chili Pepper Grinder, Rula 01/09/2025 11:18 AM Signed patient is currently hospitalized Madhavi Patient Chili Pepper Grinder, Rula 01/10/2025 10:35 AM Signed Discharged to snf Attempted to call patient, voicemail box full unable to LVM Call placed to patient's daughter Christine to discuss palliative care referral and offer visit, however, there was no answer. Message left for Pt/CG to call office to discuss further. Rula Hendrickson Patient Chili Pepper Grinder Paison Patient Chili Pepper Grinder, Rula 02/08/2025 12:44 PM Signed Call placed to patient's daughter to discuss palliative care referral and offer visit, however, there was no answer. Message left for Pt/CG to call office to discuss further. Sending mychart message Rula Hendrickson Patient Chili Pepper Grinder Paison Patient Chili Pepper Grinder, Baxter 02/14/2025 12:52 PM Signed Patient's daughter called back and scheduled Allergies As of Date: 01/06/2025 Noted Allergy Reaction AMOXICILLIN 12/30/2021 18 - Angioedema LINDANE 12/30/2021 2 - Rash LODINE (ETODOLAC) 03/12/2005 8 - GI Upset Date Reviewed: 01/06/2025 Reviewed by: Tanvi Mejia RN - Fully Assessed Reason for Visit: [id number] Palliative Care [Other] Prescriptions as of 02/14/2025 - tamsulosin (FLOMAX) 0.4 mg Take 1 capsule by mouth once daily. - traZODone (DESYREL) 50 mg tablet 0.5 tablets by ORAL/FEEDING TUBE route daily at bedtime. - torsemide (DEMADEX) 20 mg tablet Take 2 tablets by mouth two times a day. - thiamine (VITAMIN B1) 100 mg tablet Take 1 tablet by mouth once daily. - atorvastatin (LIPITOR) 40 mg tablet Take 1 tablet by mouth daily at bedtime. - pantoprazole DR (PROTONIX) 40 mg tablet Take 1 tablet by mouth daily at 6 am. - insulin glargine 100 unit/mL (3 mL) Inject 10 Units subcutaneously daily at bedtime. - metoprolol succinate ER (TOPROL XL) 25 mg 24 hr tablet Take 1 tablet by mouth once daily. - aspirin 81 mg chewable tablet Take 1 tablet by mouth once daily. - clopidogrel (PLAVIX) 75 mg tablet Take 1 tablet by mouth once daily. - dapagliflozin propanediol (FARXIGA) 10 mg tablet Take 10 mg by mouth daily with breakfast. - REPATHA SURECLICK 140 mg/mL pen injector Inject 140 mg subcutaneously every 2 weeks. - ezetimibe (ZETIA) 10 mg tablet Take 10 mg by mouth once daily. - fluticasone-salmeterol (ADVAIR DISKUS) 100-50 mcg/dose inhaler Inhale 1 puff as instructed once daily. - fluticasone (FLONASE) 50 mcg/actuation nasal spray Use 2 sprays in each nostril once daily as needed for cold/allergy symptoms. - nicotine (NICODERM CQ) 21 mg/24 hr Apply 1 patch as directed every 24 hours. - nitroglycerin sublingual (NITROQUICK) 0.4 mg SL tablet Dissolve 0.4 mg under the tongue every 5 minutes as needed. - Lancets lancets Test blood sugar(s) 2 daily. Dx: E11.65 Insulin: Yes - insulin needles, DISPOSABLE, (PEN NEEDLE) 31 gauge x 5/16 ndle Use one needle per dose. 1 per day. - Blood-Glucose Meter monitoring kit Glucose Meter of Choice - Kit - Dx: Type 2 DM - Uncontrolled E11.65 - blood sugar diagnostic (BLOOD GLUCOSE TEST) test strip Test blood sugar(s) 2 daily. Dx: E11.65. Insulin: Yes - albuterol HFA (PROAIR HFA) 90 mcg/actuation inhaler Inhale 2 Puffs as instructed every 4 hours as needed for Wheezing/Shortness of Breath. Problem List As Of Date 01/06/2025 Noted Resolved Uncontrolled type 2 diabetes mellitus without c*10/09/2015 Pure hypercholesterolemia [E78.00] 10/09/2015 Umbilical hernia [K42.9] 01/05/2017 Inguinal hernia [K40.90] 01/05/2017 Critical limb ischemia of left lower extremity *12/20/2024 Primary hypertension [I10] 12/20/2024 Mixed hyperlipidemia [E78.2] 12/20/2024 Diabetes mellitus type 2 with ketoacidosis, unc*12/20/2024 Peripheral arterial disease [I73.9] 12/20/2024 Chronic hypoxic respiratory failure (HCC) [J96.*12/20/2024 Pleural effusion on right [J90] 12/20/2024 Chronic obstructive pulmonary disease (HCC) [J4*12/20/[address] of the chest [R93.89] 12/20/2024 Toxic metabolic encephalopathy [G92.8] 12/20/2024 Coronary artery disease involving ugashik heart *12/20/2024 Chronic systolic CHF (congestive hea (more content not included)... Normal [facility] CONSULT PROGon 01-06-2025 CONSULT PROG Normal [facility] CONSULT PROG Normal [facility] Magnesium SerPl-mCncon 01-06 Magnesium [Mass/Vol] 2.2 mg/dL Normal 1.7-2.3 [facility] Comment on above: Order Comment: Yadii men Type: BLOOD SPECIMENOrdering Facility: [facility] Address: [address] [place] [address] Performed By: #### 2 777-1, 01039-9, 43174-5 ####[facility] LABORATORYCLIA [id number] [place] [address] [place] Phosphate SerPl-mCncon 01-06 Phosphate [Mass/Vol] 3.5 mg/dL Normal 2.7-4.8 [facility] Comment on above: Order Comment: Yadii men Type: BLOOD SPECIMENOrdering Facility: [facility] Address: [address] [place] [address] Performed By: #### 2 777-1, 29595-1, 96471-5 ####[facility] LABORATORYCLIA [id number] [place] [address] [place] THERAPY NTon 01-06-2025 THERAPY NT Normal [facility] THERAPY NT Normal [facility] THERAPY NT Normal [facility] Basic metabolic 2000 panelon 01-05-2025 Anion gap [Moles/Vol] 12 mmol/L Normal 8-15 [facility] Comment on above: Order Comment: Speci men Type: BLOOD SPECIMENOrdering Facility: [facility] Address: [address] [place] [id number] Performed By: #### 1 9123-9, 27710-04, 20415-8 ####RU[facility] LABORATORYCLIA [id number] [place] [id number] [place] Calcium [Mass/Vol] 9.8 mg/dL Normal 8.5-10.2 [facility] Comment on above: Order Comment: Speci men Type: BLOOD SPECIMENOrdering Facility: [facility] Address: [address] [place] [address] Performed By: #### 1 9123-9, 27710-04, 72674-9 ####[facility] LABORATORYCLIA [id number] [place] [id number] [place] Chloride [Moles/Vol] 90 mmol/L Low 98-107 [facility] Comment on above: Order Comment: Speci men Type: BLOOD SPECIMENOrdering Facility: [facility] Address: [address] [place] [address] Performed By: #### 1 9123-9, 2771, 42017-2 ####[facility] LABORATORYCLIA [id number] [place] [id number] [place] CO2 [Moles/Vol] 31 mmol/L High 22-30 [facility] Comment on above: Order Comment: Speci men Type: BLOOD SPECIMENOrdering Facility: [facility] Address: [address] [place] [address] Performed By: #### 1 9123-9, 2777-1, 44033-6 ####[facility] LABORATORYCLIA [id number] [place] [address] [place] Creatinine [Mass/Vol] 0.86 mg/dL Normal 0.73-1.22 [facility] Comment on above: Order Comment: Concetta coronado Type: BLOOD SPECIMENOrdering Facility: [facility] Address: [address] [place] [address] Performed By: #### 1 9123-9, 2777-1, 55471-3 ####[facility] LABORATORYCLIA [id number] [place] [id number] [place] eGFRcr SerPlBld CKD-EPI 2020 97 mL/min/1.73m??? Normal >=60 [facility] Comment on above: Order Comment: [facility] Type: BLOOD SPECIMENOrdering Facility: [facility] Address: [address] [place] [address] Result Comment: Matilda mated Glomerular Filtration Rate (eGFR) is calculated using the 2020 CKD-EPI creatinine equation. This equation utilizes serum creatinine, sex, and age as parameters. The creatinine assay has traceable calibration to isotope dilution-mass spectrometry. Refer to KDIGO guidelines for clinical interpretation. In patients with unstable renal function, e.g. those with acute kidney injury, the eGFR may not accurately reflect actual GFR. Performed By: #### 1 9123-9, 2777-1, 18656-1 ####[facility] LABORATORYCLIA [id number] [place] [id number] [place] Glucose [Mass/Vol] 137 mg/dL High 74-99 [facility] Comment on above: Order Comment: Concetta coronado Type: BLOOD SPECIMENOrdering Facility: [facility] Address: [address] [place] [address] Result Comment: The [place] [employer] (ADA) provides guidance for cutoff values for fasting glucose and random glucose. The ADA defines fasting as no caloric intake for at least 8 hours. Fasting plasma glucose results between 100 to 125 mg/dL indicate increased risk for diabetes (prediabetes).Fasting plasma glucose results greater than or equal to 126 mg/dL meet the criteria for diagnosis of diabetes. In the absence of unequivocal hyperglycemia, results should be confirmed by repeat testing. In a patient with classic symptoms of hyperglycemia or hyperglycemic crisis, random plasma glucose results greater than or equal to 200 mg/dL meet the criteria for diagnosis of diabetes.Reference: Standards of Medical Care in Diabetes 2016, [place] [employer]. Diabetes Care. 2016.39(Suppl 1). Performed By: #### 1 9123-9, 2777-1, 50712-1 ####[facility] LABORATORYCLIA [id number] [place] [id number] [place] Potassium [Moles/Vol] 4.1 mmol/L Normal 3.7-5.1 [facility] Comment on above: Order Comment: Concetta coronado Type: BLOOD SPECIMENOrdering Facility: [facility] Address: [address] [place] [address] Performed By: #### 1 9123-9, 2777-, 08800-2 ####[facility] LABORATORYCLIA [id number] [place] [id number] [place] Sodium [Moles/Vol] 133 mmol/L Low 136-144 [facility] Comment on above: Order Comment: Concetta coronado Type: BLOOD SPECIMENOrdering Facility: [facility] Address: [address] [place] [address] Performed By: #### 1 9123-9, 2777-, 18914-2 ####[facility] LABORATORYCLIA [id number] [place] [id number] [place] Urea nitrogen [Mass/Vol] 52 mg/dL High 9-24 [facility] Comment on above: Order Comment: Concetta coronado Type: BLOOD SPECIMENOrdering Facility: [facility] Address: [address] [place] [address] Performed By: #### 1 9123-9, 2777-, 41153-0 ####[facility] LABORATORYCLIA [id number] [place] [id number] [place] CASE MANAGEMon 01-05-2025 CASE MANAGEM Normal [facility] CBC W Auto Differential pane l (Bld)on 01-05-2025 Basophils (Bld) [#/Vol] 0.05 10*3/uL Normal <0.11 [facility] Comment on above: Order Comment: Speci men Type: BLOOD SPECIMENOrdering Facility: [facility] Address: [address] [place] [address] Performed By: #### 5 7021-8 ####[facility] LABORATORYCLIA [id number] [address] [place] Basophils/100 WBC (Bld) 0.6 % Normal [facility] Comment on above: Order Comment: Speci men Type: BLOOD SPECIMENOrdering Facility: [facility] Address: [address] [place] [address] Performed By: #### 5 7021-8 ####[facility] LABORATORYCLIA [id number] [address] Differential cell count method Nom (Bld) Auto Normal [facility] Comment on above: Order Comment: Speci men Type: BLOOD SPECIMENOrdering Facility: [facility] Address: [address] [place] [address] Performed By: #### 5 7021-8 ####[facility] LABORATORYCLIA [id number] [place] [address] [place] Eosinophils (Bld) [#/Vol] 0.53 10*3/uL High <0.46 [facility] Comment on above: Order Comment: Speci men Type: BLOOD SPECIMENOrdering Facility: [facility] Address: [address] [place] [address] Performed By: #### 5 7021-8 ####[facility] LABORATORYCLIA [id number] [address] [place] Eosinophils/100 WBC (Bld) 6.3 % Normal [facility] Comment on above: Order Comment: Speci men Type: BLOOD SPECIMENOrdering Facility: [facility] Address: [address] [place] [address] Performed By: #### 5 7021-8 ####[facility] LABORATORYCLIA [id number] [address] [place] Erythrocyte distribution width (RBC) [Ratio] 16.7 % High 11.5-15.0 [facility] Comment on above: Order Comment: Speci men Type: BLOOD SPECIMENOrdering Facility: [facility] Address: [address] [place] [address] Performed By: #### 5 7021-8 ####RUBY LABORATORYCLIA [id number] [place] [address] [place] Hematocrit (Bld) [Volume fraction] 45.8 % Normal 39.0-51.0 [facility] Comment on above: Order Comment: Speci men Type: BLOOD SPECIMENOrdering Facility: [facility] Address: [address] [place] [address] Performed By: #### 5 7021-8 ####[facility] LABORATORYCLIA [id number] [place] [address] [place] Hemoglobin (Bld) [Mass/Vol] 14.7 g/dL Normal 13.0-17.0 [facility] Comment on above: Order Comment: Speci men Type: BLOOD SPECIMENOrdering Facility: [facility] Address: [address] [place] [address] Performed By: #### 5 7021-8 ####RU[facility] LABORATORYCLIA [id number] [place] [address] [place] Immature granulocytes (Bld) [#/Vol] 0.04 10*3/uL Normal <0.10 [facility] Comment on above: Order Comment: Speci men Type: BLOOD SPECIMENOrdering Facility: [facility] Address: [address] [place] [address] Performed By: #### 5 7021-8 ####RU[facility] LABORATORYCLIA [id number] [place] [address] [place] Immature granulocytes/100 WBC (Bld) 0.5 % Normal [facility] Comment on above: Order Comment: Speci men Type: BLOOD SPECIMENOrdering Facility: [facility] Address: [address] [place] [address] Performed By: #### 5 7021-8 ####RU[facility] LABORATORYCLIA [id number] [address] [place] Lymphocytes (Bld) [#/Vol] 1.72 10*3/uL Normal 1.00-4.00 [facility] Comment on above: Order Comment: Speci men Type: BLOOD SPECIMENOrdering Facility: [facility] Address: [address] [place] [address] Performed By: #### 5 7021-8 ####[facility] LABORATORYCLIA [id number] [address] [place] Lymphocytes/100 WBC (Bld) 20.5 % Normal [facility] Comment on above: Order Comment: Speci men Type: BLOOD SPECIMENOrdering Facility: [facility] Address: [address] [place] [address] Performed By: #### 5 7021-8 ####[facility] LABORATORYCLIA [id number] [address] [place] MCH (RBC) [Entitic mass] 28.3 pg Normal 26.0-34.0 [facility] Comment on above: Order Comment: Speci men Type: BLOOD SPECIMENOrdering Facility: [facility] Address: [address] [place] [address] Performed By: #### 5 7021-8 ####[facility] LABORATORYCLIA [id number] [address] [place] MCHC (RBC) [Mass/Vol] 32.1 g/dL Normal 30.5-36.0 [facility] Comment on above: Order Comment: Speci men Type: BLOOD SPECIMENOrdering Facility: [facility] Address: [address] [place] [address] Performed By: #### 5 7021-8 ####[facility] LABORATORYCLIA [id number] [address] [place] MCV (RBC) [Entitic vol] 88.2 fL Normal 80.0-100.0 [facility] Comment on above: Order Comment: Speci men Type: BLOOD SPECIMENOrdering Facility: [facility] Address: [address] [place] [address] Performed By: #### 5 7021-8 ####[facility] LABORATORYCLIA [id number] [place] [id number] [place] Monocytes (Bld) [#/Vol] 0.76 10*3/uL Normal <0.87 [facility] Comment on above: Order Comment: Speci men Type: BLOOD SPECIMENOrdering Facility: [facility] Address: [address] [place] [address] Performed By: #### 5 7021-8 ####[facility] LABORATORYCLIA [id number] [place] [id number] [place] Monocytes/100 WBC (Bld) 9.0 % Normal [facility] Comment on above: Order Comment: Speci men Type: BLOOD SPECIMENOrdering Facility: [facility] Address: [address] [place] [address] Performed By: #### 5 7021-8 ####RU[facility] LABORATORYCLIA [id number] [place] [id number] [place] Neutrophils (Bld) [#/Vol] 5.31 10*3/uL Normal 1.45-7.50 [facility] Comment on above: Order Comment: Speci men Type: BLOOD SPECIMENOrdering Facility: [facility] Address: [address] [place] [address] Performed By: #### 5 7021-8 ####[facility] LABORATORYCLIA [id number] [place] [id number] [place] Neutrophils/100 WBC (Bld) 63.1 % Normal [facility] Comment on above: Order Comment: Speci men Type: BLOOD SPECIMENOrdering Facility: [facility] Address: [address] [place] [address] Performed By: #### 5 7021-8 ####[facility] LABORATORYCLIA [id number] [place] [id number] [place] Nucleated RBC (Bld) [#/Vol] 10*3/uL Normal <0.01 [facility] Comment on above: Order Comment: Speci men Type: BLOOD SPECIMENOrdering Facility: [facility] Address: [address] [place] [address] Performed By: #### 5 7021-8 ####[facility] LABORATORYCLIA [id number] [place] [id number] [place] Nucleated RBC/100 WBC (Bld) [Ratio] 0.0 /100 WBC Normal [facility] Comment on above: Order Comment: Speci men Type: BLOOD SPECIMENOrdering Facility: [facility] Address: [address] [place] [address] Performed By: #### 5 7021-8 ####[facility] LABORATORYCLIA [id number] [place] [id number] [place] Platelet mean volume (Bld) [Entitic vol] 10.3 fL Normal 9.0-12.7 [facility] Comment on above: Order Comment: Speci men Type: BLOOD SPECIMENOrdering Facility: [facility] Address: [address] [place] [address] Performed By: #### 5 7021-8 ####[facility] LABORATORYCLIA [id number] [place] [address] [place] Platelets (Bld) [#/Vol] 340 10*3/uL Normal 150-400 [facility] Comment on above: Order Comment: Speci men Type: BLOOD SPECIMENOrdering Facility: [facility] Address: [address] [place] [address] Performed By: #### 5 7021-8 ####[facility] LABORATORYCLIA [id number] [place] [id number] [place] RBC (Bld) [#/Vol] 5.19 10*6/uL Normal 4.20-6.00 [facility] Comment on above: Order Comment: Speci men Type: BLOOD SPECIMENOrdering Facility: [facility] Address: [address] [place] [address] Performed By: #### 5 7021-8 ####[facility] LABORATORYCLIA [id number] [place] [id number] [place] WBC (Bld) [#/Vol] 8.41 10*3/uL Normal 3.70-11.00 [facility] Comment on above: Order Comment: Speci men Type: BLOOD SPECIMENOrdering Facility: [facility] Address: [address] [place] [address] Performed By: #### 5 7021-8 ####RU[facility] LABORATORYCLIA [id number] [place] [id number] [place] CONSULTon 01-05-2025 CONSULT Normal [facility] CONSULT PROGon 01-05-2025 CONSULT PROG Normal [facility] CONSULT PROG Normal [facility] CONSULT PROG Normal [facility] CONSULT PROG [facility] Magnesium SerPl-mCncon 01-05 Magnesium [Mass/Vol] 2.2 mg/dL Normal 1.7-2.3 [facility] Comment on above: Order Comment: Speci men Type: BLOOD SPECIMENOrdering Facility: [facility] Address: [address] [place] [address] Performed By: #### 1 9123-9, 2777-1, 83574-7 ####[facility] LABORATORYCLIA [id number] [place] [id number] [place] Phosphate SerPl-mCncon 01-05 Phosphate [Mass/Vol] 3.5 mg/dL Normal 2.7-4.8 [facility] Comment on above: Order Comment: Speci men Type: BLOOD SPECIMENOrdering Facility: [facility] Address: [address] [place] [address] Performed By: #### 1 9123-9, 2777-1, 02748-9 ####[facility] LABORATORYCLIA [id number] [place] [id number] [place] THERAPY NTon 01-05-2025 THERAPY NT Normal [facility] ANES POSTPROC EVALon 025 ANES POSTPROC EVAL Normal [facility] ANES PRE-OPon 01-04-2025 ANES PRE-OP Normal [facility] BRIEF OP NOTon 01-04-2025 BRIEF OP NOT Normal [facility] Basic metabolic 2000 panelon 01-04-2025 Anion gap [Moles/Vol] 12 mmol/L Normal 8-15 [facility] Comment on above: Order Comment: Speci men Type: BLOOD SPECIMENOrdering Facility: [facility] Address: [address] [place] [id number] Performed By: #### 1 9123-9, 2776-04, ####RU[facility] LABORATORYCLIA [id number] [place] [address] [place] Calcium [Mass/Vol] 10.0 mg/dL Normal 8.5-10.2 [facility] Comment on above: Order Comment: Speci men Type: BLOOD SPECIMENOrdering Facility: [facility] Address: [address] [place] [address] Performed By: #### 1 9123-9, 27710-04, ####[facility] LABORATORYCLIA [id number] [place] [id number] [place] Chloride [Moles/Vol] 89 mmol/L Low 98-107 [facility] Comment on above: Order Comment: Speci men Type: BLOOD SPECIMENOrdering Facility: [facility] Address: [address] [place] [address] Performed By: #### 1 9123-9, 2776-04, ####[facility] LABORATORYCLIA [id number] [place] [id number] [place] CO2 [Moles/Vol] 34 mmol/L High 22-30 [facility] Comment on above: Order Comment: Speci men Type: BLOOD SPECIMENOrdering Facility: [facility] Address: [address] [place] [address] Performed By: #### 1 9123-9, 2776-04, ####RU[facility] LABORATORYCLIA [id number] [place] [id number] [place] Creatinine [Mass/Vol] 0.89 mg/dL Normal 0.73-1.22 [facility] Comment on above: Order Comment: Speci men Type: BLOOD SPECIMENOrdering Facility: [facility] Address: [address] [place] [address] Performed By: #### 1 9123-9, 27710-04, 46456-8 ####[facility] LABORATORYCLIA [id number] [place] [id number] [place] eGFRcr SerPlBld CKD-EPI 2020 96 mL/min/1.73m??? Normal >=60 [facility] Comment on above: Order Comment: Yadigay coronado Type: BLOOD SPECIMENOrdering Facility: [facility] Address: [address] [place] [address] Result Comment: Matilda mated Glomerular Filtration Rate (eGFR) is calculated using the 2020 CKD-EPI creatinine equation. This equation utilizes serum creatinine, sex, and age as parameters. The creatinine assay has traceable calibration to isotope dilution-mass spectrometry. Refer to KDIGO guidelines for clinical interpretation. In patients with unstable renal function, e.g. those with acute kidney injury, the eGFR may not accurately reflect actual GFR. Performed By: #### 1 9123-9, 2777-1, 17936-2 ####[facility] LABORATORYCLIA [id number] [place] [id number] [place] Glucose [Mass/Vol] 101 mg/dL High 74-99 [facility] Comment on above: Order Comment: Concetta coronado Type: BLOOD SPECIMENOrdering Facility: [facility] Address: [address] [place] [address] Result Comment: The [place] [employer] (ADA) provides guidance for cutoff values for fasting glucose and random glucose. The ADA defines fasting as no caloric intake for at least 8 hours. Fasting plasma glucose results between 100 to 125 mg/dL indicate increased risk for diabetes (prediabetes).Fasting plasma glucose results greater than or equal to 126 mg/dL meet the criteria for diagnosis of diabetes. In the absence of unequivocal hyperglycemia, results should be confirmed by repeat testing. In a patient with classic symptoms of hyperglycemia or hyperglycemic crisis, random plasma glucose results greater than or equal to 200 mg/dL meet the criteria for diagnosis of diabetes.Reference: Standards of Medical Care in Diabetes 2016, [place] [employer]. Diabetes Care. 2016.39(Suppl 1). Performed By: #### 1 9123-9, 2777-1, 55743-2 ####[facility] LABORATORYCLIA [id number] [place] [id number] [place] Potassium [Moles/Vol] 3.5 mmol/L Low 3.7-5.1 [facility] Comment on above: Order Comment: Speci men Type: BLOOD SPECIMENOrdering Facility: [facility] Address: [address] [place] [address] Performed By: #### 1 9123-9, 2777, 65231-7 ####[facility] LABORATORYCLIA [id number] [place] [id number] [place] Sodium [Moles/Vol] 135 mmol/L Low 136-144 [facility] Comment on above: Order Comment: Speci men Type: BLOOD SPECIMENOrdering Facility: [facility] Address: [address] [place] [address] Performed By: #### 1 9123-9, 27710-04, 98629-2 ####[facility] LABORATORYCLIA [id number] [place] [address] [place] Urea nitrogen [Mass/Vol] 56 mg/dL High 9-24 [facility] Comment on above: Order Comment: Speci men Type: BLOOD SPECIMENOrdering Facility: [facility] Address: [address] [place] [address] Performed By: #### 1 9123-9, 27710-04, 83850-8 ####[facility] LABORATORYCLIA [id number] [place] [address] [place] CBC W Auto Differential pane l (Bld)on 01-04-2025 Basophils (Bld) [#/Vol] 0.05 10*3/uL Normal <0.11 [facility] Comment on above: Order Comment: Speci men Type: BLOOD SPECIMENOrdering Facility: [facility] Address: [address] [place] [address] Performed By: #### 5 7021-8 ####[facility] LABORATORYCLIA [id number] [address] [place] Basophils/100 WBC (Bld) 0.6 % Normal [facility] Comment on above: Order Comment: Speci men Type: BLOOD SPECIMENOrdering Facility: [facility] Address: [address] [place] [address] Performed By: #### 5 7021-8 ####[facility] LABORATORYCLIA [id number] [place] [id number] [place] Differential cell count method Nom (Bld) Auto Normal [facility] Comment on above: Order Comment: Speci men Type: BLOOD SPECIMENOrdering Facility: [facility] Address: [address] [place] [address] Performed By: #### 5 7021-8 ####[facility] LABORATORYCLIA [id number] [place] [address] [place] Eosinophils (Bld) [#/Vol] 0.94 10*3/uL High <0.46 [facility] Comment on above: Order Comment: Speci men Type: BLOOD SPECIMENOrdering Facility: [facility] Address: [address] [place] [address] Performed By: #### 5 7021-8 ####RU[facility] LABORATORYCLIA [id number] [place] [address] [place] Eosinophils/100 WBC (Bld) 11.0 % Normal [facility] Comment on above: Order Comment: Speci men Type: BLOOD SPECIMENOrdering Facility: [facility] Address: [address] [place] [address] Performed By: #### 5 7021-8 ####[facility] LABORATORYCLIA [id number] [address] [place] Erythrocyte distribution width (RBC) [Ratio] 16.7 % High 11.5-15.0 [facility] Comment on above: Order Comment: Speci men Type: BLOOD SPECIMENOrdering Facility: [facility] Address: [address] [place] [address] Performed By: #### 5 7021-8 ####[facility] LABORATORYCLIA [id number] [address] [place] Hematocrit (Bld) [Volume fraction] 48.4 % Normal 39.0-51.0 [facility] Comment on above: Order Comment: Speci men Type: BLOOD SPECIMENOrdering Facility: [facility] Address: [address] [place] [address] Performed By: #### 5 7021-8 ####[facility] LABORATORYCLIA [id number] [place] [id number] [place] Hemoglobin (Bld) [Mass/Vol] 15.5 g/dL Normal 13.0-17.0 [facility] Comment on above: Order Comment: Speci men Type: BLOOD SPECIMENOrdering Facility: [facility] Address: [address] [place] [address] Performed By: #### 5 7021-8 ####[facility] LABORATORYCLIA [id number] [place] [id number] [place] Immature granulocytes (Bld) [#/Vol] 0.04 10*3/uL Normal <0.10 [facility] Comment on above: Order Comment: Speci men Type: BLOOD SPECIMENOrdering Facility: [facility] Address: [address] [place] [address] Performed By: #### 5 7021-8 ####[facility] LABORATORYCLIA [id number] [place] [address] [place] Immature granulocytes/100 WBC (Bld) 0.5 % Normal [facility] Comment on above: Order Comment: Speci men Type: BLOOD SPECIMENOrdering Facility: [facility] Address: [address] [place] [address] Performed By: #### 5 7021-8 ####RU[facility] LABORATORYCLIA [id number] [place] [id number] [place] Lymphocytes (Bld) [#/Vol] 2.09 10*3/uL Normal 1.00-4.00 [facility] Comment on above: Order Comment: Speci men Type: BLOOD SPECIMENOrdering Facility: [facility] Address: [address] [place] [address] Performed By: #### 5 7021-8 ####[facility] LABORATORYCLIA [id number] [place] [id number] [place] Lymphocytes/100 WBC (Bld) 24.4 % Normal [facility] Comment on above: Order Comment: Speci men Type: BLOOD SPECIMENOrdering Facility: [facility] Address: [address] [place] [address] Performed By: #### 5 7021-8 ####[facility] LABORATORYCLIA [id number] [address] [place] [facility] MCH (RBC) [Entitic mass] 28.2 pg Normal 26.0-34.0 [facility] Comment on above: Order Comment: Speci men Type: BLOOD SPECIMENOrdering Facility: [facility] Address: [address] [place] [address] Performed By: #### 5 7021-8 ####[facility] LABORATORYCLIA [id number] [address] [place] MCHC (RBC) [Mass/Vol] 32.0 g/dL Normal 30.5-36.0 [facility] Comment on above: Order Comment: Speci men Type: BLOOD SPECIMENOrdering Facility: [facility] Address: [address] [place] [address] Performed By: #### 5 7021-8 ####[facility] LABORATORYCLIA [id number] [address] [place] MCV (RBC) [Entitic vol] 88.0 fL Normal 80.0-100.0 [facility] Comment on above: Order Comment: Speci men Type: BLOOD SPECIMENOrdering Facility: [facility] Address: [address] [place] [address] Performed By: #### 5 7021-8 ####[facility] LABORATORYCLIA [id number] [address] [place] Monocytes (Bld) [#/Vol] 0.71 10*3/uL Normal <0.87 [facility] Comment on above: Order Comment: Speci men Type: BLOOD SPECIMENOrdering Facility: [facility] Address: [address] [place] [address] Performed By: #### 5 7021-8 ####[facility] LABORATORYCLIA [id number] [address] Monocytes/100 WBC (Bld) 8.3 % Normal [facility] Comment on above: Order Comment: Speci men Type: BLOOD SPECIMENOrdering Facility: [facility] Address: [address] [place] [address] Performed By: #### 5 7021-8 ####[facility] LABORATORYCLIA [id number] [place] [address] [place] Neutrophils (Bld) [#/Vol] 4.73 10*3/uL Normal 1.45-7.50 [facility] Comment on above: Order Comment: Speci men Type: BLOOD SPECIMENOrdering Facility: [facility] Address: [address] [place] [address] Performed By: #### 5 7021-8 ####[facility] LABORATORYCLIA [id number] [place] [address] [place] Neutrophils/100 WBC (Bld) 55.2 % Normal [facility] Comment on above: Order Comment: Speci men Type: BLOOD SPECIMENOrdering Facility: [facility] Address: [address] [place] [address] Performed By: #### 5 7021-8 ####[facility] LABORATORYCLIA [id number] [place] [address] [place] Nucleated RBC (Bld) [#/Vol] 10*3/uL Normal <0.01 [facility] Comment on above: Order Comment: Speci men Type: BLOOD SPECIMENOrdering Facility: [facility] Address: [address] [place] [address] Performed By: #### 5 7021-8 ####[facility] LABORATORYCLIA [id number] [place] [id number] [place] Nucleated RBC/100 WBC (Bld) [Ratio] 0.0 /100 WBC Normal [facility] Comment on above: Order Comment: Speci men Type: BLOOD SPECIMENOrdering Facility: [facility] Address: [address] [place] [address] Performed By: #### 5 7021-8 ####[facility] LABORATORYCLIA [id number] [place] [id number] [place] Platelet mean volume (Bld) [Entitic vol] 9.5 fL Normal 9.0-12.7 [facility] Comment on above: Order Comment: Speci men Type: BLOOD SPECIMENOrdering Facility: [facility] Address: [address] [place] [address] Performed By: #### 5 7021-8 ####[place] LABORATORYCLIA [id number] [place] [id number] [place] Platelets (Bld) [#/Vol] 348 10*3/uL Normal 150-400 [facility] Comment on above: Order Comment: Speci men Type: BLOOD SPECIMENOrdering Facility: [facility] Address: [address] [place] [address] Performed By: #### 5 7021-8 ####[facility] LABORATORYCLIA [id number] [place] [address] [place] RBC (Bld) [#/Vol] 5.50 10*6/uL Normal 4.20-6.00 [facility] Comment on above: Order Comment: Speci men Type: BLOOD SPECIMENOrdering Facility: [facility] Address: [address] [place] [address] Performed By: #### 5 7021-8 ####[place] LABORATORYCLIA [id number] [place] [id number] [place] WBC (Bld) [#/Vol] 8.56 10*3/uL Normal 3.70-11.00 [facility] Comment on above: Order Comment: Speci men Type: BLOOD SPECIMENOrdering Facility: [facility] Address: [address] [place] [address] Performed By: #### 5 7021-8 ####[place] LABORATORYCLIA [id number] [place] [id number] [place] CONSULT PROGon 01-04-2025 CONSULT PROG Normal [facility] CONSULT PROG Normal [facility] Magnesium SerPl-mCncon 01-04 Magnesium [Mass/Vol] 2.2 mg/dL Normal 1.7-2.3 [facility] Comment on above: Order Comment: Speci men Type: BLOOD SPECIMENOrdering Facility: [facility] Address: [address] [place], [place] [address] Performed By: #### 1 9123-9, 2776-04, 60049-2 ####[facility] LABORATORYCLIA [id number] [place] [address] [place] OPERATIVE NOon 01-04-2025 OPERATIVE NO Normal [facility] Phosphate SerPl-mCncon 01-04 Phosphate [Mass/Vol] 4.1 mg/dL Normal 2.7-4.8 [facility] Comment on above: Order Comment: Speci men Type: BLOOD SPECIMENOrdering Facility: [facility] Address: [address] [place] [address] Performed By: #### 1 9123-9, 2776-04, ####[facility] LABORATORYCLIA [id number] [place] [address] [facility] THERAPY NTon 01-04-2025 THERAPY NT Normal [facility] THERAPY NT Normal [facility] ALLIED HEALTHon 01-03-2025 ALLIED HEALTH Normal [facility] Basic metabolic 2000 panelon 01-03-2025 Anion gap [Moles/Vol] 12 mmol/L Normal 8-15 [facility] Comment on above: Order Comment: Speci men Type: BLOOD SPECIMENOrdering Facility: [facility] Address: [address] [place] [address] Performed By: #### 2 777-1, 2885-2, , ####[facility] LABORATORYCLIA [id number] [place] [id number] [place] Calcium [Mass/Vol] 9.7 mg/dL Normal 8.5-10.2 [facility] Comment on above: Order Comment: Speci men Type: BLOOD SPECIMENOrdering Facility: [facility] Address: [address] [place] [address] Performed By: #### 2 777-1, 2885-2, , ####[facility] LABORATORYCLIA [id number] [place] [id number] [place] Chloride [Moles/Vol] 90 mmol/L Low 98-107 [facility] Comment on above: Order Comment: Speci men Type: BLOOD SPECIMENOrdering Facility: [facility] Address: [facility] [place] [address] Performed By: #### 2 777-1, 2885-2, 55903-4, 59017-9 ####[place] LABORATORYCLIA [id number] [place] [id number] [place] CO2 [Moles/Vol] 34 mmol/L High 22-30 [facility] Comment on above: Order Comment: Speci men Type: BLOOD SPECIMENOrdering Facility: [facility] Address: [address] [place] [address] Performed By: #### 2 777-1, 2885-2, , 58475-7 ####[place] LABORATORYCLIA [id number] [place] [id number] [place] Creatinine [Mass/Vol] 0.94 mg/dL Normal 0.73-1.22 [facility] Comment on above: Order Comment: Speci men Type: BLOOD SPECIMENOrdering Facility: [facility] Address: [facility] [place] [address] Performed By: #### 2 777-1, 2885-2, , 00894-6 ####[place] LABORATORYCLIA [id number] [place] [id number] [place] eGFRcr SerPlBld CKD-EPI 2020 91 mL/min/1.73m??? Normal >=60 [facility] Comment on above: Order Comment: Speci men Type: BLOOD SPECIMENOrdering Facility: [facility] Address: [address] [place] [address] Result Comment: Matilda mated Glomerular Filtration Rate (eGFR) is calculated using the 2020 CKD-EPI creatinine equation. This equation utilizes serum creatinine, sex, and age as parameters. The creatinine assay has traceable calibration to isotope dilution-mass spectrometry. Refer to KDIGO guidelines for clinical interpretation. In patients with unstable renal function, e.g. those with acute kidney injury, the eGFR may not accurately reflect actual GFR. Performed By: #### 2 777-1, 2885-2, , ####[facility] LABORATORYCLIA [id number] [place] [id number] [place] Glucose [Mass/Vol] 114 mg/dL High 74-99 [facility] Comment on above: Order Comment: Speci men Type: BLOOD SPECIMENOrdering Facility: [facility] Address: [address] [place] [address] Result Comment: The [place] Diabetes Association (ADA) provides guidance for cutoff values for fasting glucose and random glucose. The ADA defines fasting as no caloric intake for at least 8 hours. Fasting plasma glucose results between 100 to 125 mg/dL indicate increased risk for diabetes (prediabetes).Fasting plasma glucose results greater than or equal to 126 mg/dL meet the criteria for diagnosis of diabetes. In the absence of unequivocal hyperglycemia, results should be confirmed by repeat testing. In a patient with classic symptoms of hyperglycemia or hyperglycemic crisis, random plasma glucose results greater than or equal to 200 mg/dL meet the criteria for diagnosis of diabetes.Reference: Standards of Medical Care in Diabetes 2016, [place] Diabetes Association. Diabetes Care. 2016.39(Suppl 1). Performed By: #### 2 777-1, 2885-2, , ####[facility] LABORATORYCLIA [id number] [place] [id number] [place] Potassium [Moles/Vol] 3.9 mmol/L Normal 3.7-5.1 [facility] Comment on above: Order Comment: Speci men Type: BLOOD SPECIMENOrdering Facility: [facility] Address: [address] [place] [address] Performed By: #### 2 777-1, 2885-2, , ####[facility] LABORATORYCLIA [id number] [place] [id number] [place] Sodium [Moles/Vol] 136 mmol/L Normal 136-144 [facility] Comment on above: Order Comment: Speci men Type: BLOOD SPECIMENOrdering Facility: [facility] Address: [address] [place] [address] Performed By: #### 2 777-1, 2885-2, 54261-6, 75991-4 ####[facility] LABORATORYCLIA [id number] [place] [id number] [place] Urea nitrogen [Mass/Vol] 51 mg/dL High 9 [facility] Comment on above: Order Comment: Speci men Type: BLOOD SPECIMENOrdering Facility: [facility] Address: [address] [place] [address] Performed By: #### 2 777-1, 2885-2, , ####[facility] LABORATORYCLIA [id number] [place] [id number] [facility] OF THEO CASE MANAGEMon 01-03-2025 CASE MANAGEM Normal [facility] CBC W Auto Differential pane l (Bld)on 01-03-2025 Basophils (Bld) [#/Vol] 0.03 10*3/uL Normal <0.11 [facility] Comment on above: Order Comment: Speci men Type: BLOOD SPECIMENOrdering Facility: [facility] Address: [address] [place] [address] Performed By: #### 5 7021-8 ####[facility] LABORATORYCLIA [id number] [address] [place] Basophils/100 WBC (Bld) 0.3 % Normal [facility] Comment on above: Order Comment: Speci men Type: BLOOD SPECIMENOrdering Facility: [facility] Address: [address] [place] [address] Performed By: #### 5 7021-8 ####[facility] LABORATORYCLIA [id number] [place] [id number] [place] Differential cell count method Nom (Bld) Auto Normal [facility] Comment on above: Order Comment: Speci men Type: BLOOD SPECIMENOrdering Facility: [facility] Address: [address] [place] [address] Performed By: #### 5 7021-8 ####[facility] LABORATORYCLIA [id number] [address] OF [place] Eosinophils (Bld) [#/Vol] 0.54 10*3/uL High <0.46 [facility] Comment on above: Order Comment: Speci men Type: BLOOD SPECIMENOrdering Facility: [facility] Address: [address] [place] [address] Performed By: #### 5 7021-8 ####[facility] LABORATORYCLIA [id number] [place] [id number] [facility] THEO Eosinophils/100 WBC (Bld) 6.3 % Normal [facility] Comment on above: Order Comment: Speci men Type: BLOOD SPECIMENOrdering Facility: [facility] Address: [address] [place] [address] Performed By: #### 5 7021-8 ####[facility] LABORATORYCLIA [id number] [address] Erythrocyte distribution width (RBC) [Ratio] 17.0 % High 11.5-15.0 [facility] Comment on above: Order Comment: Speci men Type: BLOOD SPECIMENOrdering Facility: [facility] Address: [address] [place] [address] Performed By: #### 5 7021-8 ####[facility] LABORATORYCLIA [id number] [address] Hematocrit (Bld) [Volume fraction] 45.4 % Normal 39.0-51.0 [facility] Comment on above: Order Comment: Speci men Type: BLOOD SPECIMENOrdering Facility: [facility] Address: [address] [place] [address] Performed By: #### 5 7021-8 ####[facility] LABORATORYCLIA [id number] [place] [id number] [place] Hemoglobin (Bld) [Mass/Vol] 14.7 g/dL Normal 13.0-17.0 [facility] Comment on above: Order Comment: Speci men Type: BLOOD SPECIMENOrdering Facility: [facility] Address: [address] [place] [address] Performed By: #### 5 7021-8 ####[facility] LABORATORYCLIA [id number] [address] [place] Immature granulocytes (Bld) [#/Vol] 0.03 10*3/uL Normal <0.10 [facility] Comment on above: Order Comment: Speci men Type: BLOOD SPECIMENOrdering Facility: [facility] Address: [address] [place] [address] Performed By: #### 5 7021-8 ####[facility] LABORATORYCLIA [id number] [address] Immature granulocytes/100 WBC (Bld) 0.3 % Normal [facility] Comment on above: Order Comment: Speci men Type: BLOOD SPECIMENOrdering Facility: [facility] Address: [address] [place] [address] Performed By: #### 5 7021-8 ####[facility] LABORATORYCLIA [id number] [address] [place] Lymphocytes (Bld) [#/Vol] 2.14 10*3/uL Normal 1.00-4.00 [facility] Comment on above: Order Comment: Speci men Type: BLOOD SPECIMENOrdering Facility: [facility] Address: [address] [place] [address] Performed By: #### 5 7021-8 ####[facility] LABORATORYCLIA [id number] [address] Lymphocytes/100 WBC (Bld) 24.9 % Normal [facility] Comment on above: Order Comment: Speci men Type: BLOOD SPECIMENOrdering Facility: [facility] Address: [address] [place] [address] Performed By: #### 5 7021-8 ####[facility] LABORATORYCLIA [id number] [place] [address] [place] MCH (RBC) [Entitic mass] 28.2 pg Normal 26.0-34.0 [facility] Comment on above: Order Comment: Speci men Type: BLOOD SPECIMENOrdering Facility: [facility] Address: [address] [place] [address] Performed By: #### 5 7021-8 ####[facility] LABORATORYCLIA [id number] [place] [id number] [place] MCHC (RBC) [Mass/Vol] 32.4 g/dL Normal 30.5-36.0 [facility] Comment on above: Order Comment: Speci men Type: BLOOD SPECIMENOrdering Facility: [facility] Address: [address] [place] [address] Performed By: #### 5 7021-8 ####[facility] LABORATORYCLIA [id number] [address] [place] MCV (RBC) [Entitic vol] 87.0 fL Normal 80.0-100.0 [facility] Comment on above: Order Comment: Speci men Type: BLOOD SPECIMENOrdering Facility: [facility] Address: [address] [place] [address] Performed By: #### 5 7021-8 ####[facility] LABORATORYCLIA [id number] [address] OF [place] Monocytes (Bld) [#/Vol] 0.72 10*3/uL Normal <0.87 [facility] Comment on above: Order Comment: Speci men Type: BLOOD SPECIMENOrdering Facility: [facility] Address: [address] [place] [address] Performed By: #### 5 7021-8 ####[facility] LABORATORYCLIA [id number] [address] Monocytes/100 WBC (Bld) 8.4 % Normal [facility] Comment on above: Order Comment: Speci men Type: BLOOD SPECIMENOrdering Facility: [facility] Address: [address] [place] [address] Performed By: #### 5 7021-8 ####[facility] LABORATORYCLIA [id number] [address] OF [place] Neutrophils (Bld) [#/Vol] 5.14 10*3/uL Normal 1.45-7.50 [facility] Comment on above: Order Comment: Speci men Type: BLOOD SPECIMENOrdering Facility: [facility] Address: [address] [place] [address] Performed By: #### 5 7021-8 ####[facility] LABORATORYCLIA [id number] [place] [id number] [place] Neutrophils/100 WBC (Bld) 59.8 % Normal [facility] Comment on above: Order Comment: Speci men Type: BLOOD SPECIMENOrdering Facility: [facility] Address: [address] [place] [address] Performed By: #### 5 7021-8 ####[facility] LABORATORYCLIA [id number] [place] [id number] [place] Nucleated RBC (Bld) [#/Vol] 10*3/uL Normal <0.01 [facility] Comment on above: Order Comment: Speci men Type: BLOOD SPECIMENOrdering Facility: [facility] Address: [address] [place] [address] Performed By: #### 5 7021-8 ####[facility] LABORATORYCLIA [id number] [place] [id number] [place] Nucleated RBC/100 WBC (Bld) [Ratio] 0.0 /100 WBC Normal [facility] Comment on above: Order Comment: Speci men Type: BLOOD SPECIMENOrdering Facility: [facility] Address: [address] [place] [address] Performed By: #### 5 7021-8 ####[facility] LABORATORYCLIA [id number] [place] [id number] [place] Platelet mean volume (Bld) [Entitic vol] 9.7 fL Normal 9.0-12.7 [facility] Comment on above: Order Comment: Speci men Type: BLOOD SPECIMENOrdering Facility: [facility] Address: [address] [place] [address] Performed By: #### 5 7021-8 ####[facility] LABORATORYCLIA [id number] [place] [id number] [place] Platelets (Bld) [#/Vol] 336 10*3/uL Normal 150-400 [facility] Comment on above: Order Comment: Speci men Type: BLOOD SPECIMENOrdering Facility: [facility] Address: [address] [place] [address] Performed By: #### 5 7021-8 ####[facility] LABORATORYCLIA [id number] [place] [id number] [place] RBC (Bld) [#/Vol] 5.22 10*6/uL Normal 4.20-6.00 [facility] Comment on above: Order Comment: Speci men Type: BLOOD SPECIMENOrdering Facility: [facility] Address: [address] [place] [address] Performed By: #### 5 7021-8 ####[facility] LABORATORYCLIA [id number] [place] [id number] [place] WBC (Bld) [#/Vol] 8.60 10*3/uL Normal 3.70-11.00 [facility] Comment on above: Order Comment: Speci men Type: BLOOD SPECIMENOrdering Facility: [facility] Address: [address] [place] [address] Performed By: #### 5 7021-8 ####[facility] LABORATORYCLIA [id number] [place] [id number] [place] CONSULTon 01-03-2025 CONSULT Normal [facility] CONSULT PROGon 01-03-2025 CONSULT PROG Normal [facility] CONSULT PROG Normal [facility] LDH SerPl-cCncon 01-03-2025 LDH [Catalytic activity/Vol] 250 U/L High 100-220 [facility] Comment on above: Order Comment: Speci men Type: BLOOD SPECIMENOrdering Facility: [facility] Address: [address] [place] [address] Performed By: #### 2 532-0 ####[facility] LABORATORYCLIA [id number] [place] [id number] [place] Magnesium SerPl-mCncon 01-03 Magnesium [Mass/Vol] 1.9 mg/dL Normal 1.7-2.3 [facility] Comment on above: Order Comment: Speci men Type: BLOOD SPECIMENOrdering Facility: [facility] Address: [address] [place], [place] [address] Performed By: #### 2 777-1, 2885-2, , ####[place] LABORATORYCLIA [id number] [place] [address] [facility] OF THEO Phosphate SerPl-mCncon 01-03 Phosphate [Mass/Vol] 3.8 mg/dL Normal 2.7-4.8 [facility] Comment on above: Order Comment: Speci men Type: BLOOD SPECIMENOrdering Facility: [facility] Address: [address] [place] [address] Performed By: #### 2 777-1, 2885-2, , ####[facility] LABORATORYCLIA [id number] [place] [id number] [place] Prot SerPl-ncon 01-03-2025 Protein [Mass/Vol] 8.6 g/dL High 6.3-8.0 [facility] Comment on above: Order Comment: Speci men Type: BLOOD SPECIMENOrdering Facility: [facility] Address: [address] [place] [address] Performed By: #### 2 777-1, 2885-2, , ####[place] LABORATORYCLIA [id number] [place] [id number] [facility] OF THEO THERAPY NTon 01-03-2025 THERAPY NT Normal [facility] THERAPY NT Normal [facility] XR CHEST 1V FRONTALon 2024 XR CHEST 1V FRONTAL Normal [facility] Albumin Fld-[facility] Albumin (Body fld) [Mass/Vol] 1.4 g/dL Normal See Comment [facility] Comment on above: Order Comment: Speci men Type: SPECIMEN FROM PLEURA OBTAINED BY THORACENTESISOrdering Facility: [facility] Address: [address] [place] [address] Result Comment: Body Fluid Albumin may be used in classifying ascitic fluid into high-gradient or low-gradient fluids as determined by the serum-ascites albumin gradient, which is calculated as (serum albumin) - (ascites albumin).The serum and fluid specimens should be drawn with a minimal intervening time interval to appropriately analyze the gradient.Gradients greater than or equal to 1.1 g/dL are considered high, which reflects a high hydrostatic pressure, commonly caused by: cirrhosis or other processes generating portal hypertension.In samples where gradients are less than 1.1 g/dL, ascites generated from conditions without portal hypertension should be considered.Reference:1. CLSI. Analysis of Body Fluids in Clinical Chemistry Approved Guideline. CLSI document C49A. NILSON Honeycutt: Clinical Laboratory Standards [place]: 2007.2. Tawanna ESQUIVEL. Serum to ascites albumin gradient. UpToDate. 2015. Accessed on July 18, 2015. Performed By: #### 2 344-0, 2881-1, 1795-4, 1747-5, 98153-1, 08672-9, 73936-2, 2529-6 ####[facility] LABCLIA [id number] [place] [address] [place] Amylase Fld-cCncon 5 Amylase (Body fld) [Catalytic activity/Vol] 22 U/L Normal See Comment [facility] Comment on above: Order Comment: Speci men Type: SPECIMEN FROM PLEURA OBTAINED BY THORACENTESISOrdering Facility: [facility] Address: [address] [place] [address] Result Comment: PLEU RAL FLUIDS:Amylase measurement in pleural fluid is considered a useful test for detecting amylase-rich pleural effusions, which may be caused by exudative conditions associated with pancreatitis, esophageal rupture, malignancy, pneumonia, and liver cirrhosis. A ratio of pleural fluid amylase to a concurrent serum amylase >1 is defined asan amylase-rich pleural effusion.PERITONEAL FLUIDS AND DRAINAGE FLUIDS:Pancreatic damage causes extravasation of amylase from the exocrine cells into the peritoneal space. In cases of pancreatitis, fluid amylase should be at least several-fold times higher in fluid of pancreatic origin compared to concurrent serum amylase values.PANCREATIC CYST FLUID:Pancreatic cyst fluid amylase may aid in characterizing tumors and should be interpreted along with other clinical and laboratory information.References:1. Tenzin WILLIAM, Francis Segura. Body fluid analysis: clinical utility and applicability of published studies to guide interpretation of todays laboratory testing in serous fluids. Crit Rev Clin Lab Sci, 2013;50(4-5):107-124.2. CLSI. Analysis of Body Fluids in Clinical Chemistry; Approved Guideline. CLSI document C49-A. NILSON Honeycutt: Clinical Laboratory Standards [place]; 2007.3. Josiane BOWMANH, Burke GARCIA, Capo DJ. Use of cyst fluid CEA, CA19-9, and amylase for evaluation of pancreatic lesions. Clinical Biochemistry. 2009;42:4357-5114. Performed By: #### 2 344-0, 2881-1, 1795-4, 1747-5, 63602-3, 58118-0, 74919-4, 2529-6 ####[facility] LABCLIA [id number] [address] [place] [address] [place] Fluid Nom (Body fld) Pleural Cavity, Right Normal [facility] Comment on above: Order Comment: Speci men Type: SPECIMEN FROM PLEURA OBTAINED BY THORACENTESISOrdering Facility: [facility] Address: [address] [place] [address] Performed By: #### 2 344-0, 2881-1, 1795-4, 1747-5, 30847-9, 39944-8, 84968-2, 2529-6 ####[facility] LABCLIA [id number] [address] [place] [address] [place] Performed By: #### 2 748-2 ####[facility] LABCLIA [id number] [address] [place] [address] [place] BODY FLUID CELL COUNTon 09-2 Clarity (Unsp spec) Not Indicated Normal Clear Fa [facility] Comment on above: Order Comment: Speci men Type: SPECIMEN FROM PLEURA OBTAINED BY THORACENTESISOrdering Facility: [facility] Address: [address] [place] [address] Performed By: #### L [id number] ####[facility] LABCLIA [id number] [place] [id number] [place]#### CCBF ####[place] LABORATORYCLIA [id number] [place] [address] [place] Color (Body fld) Not Indicated Normal Yellow [facility] Comment on above: Order Comment: Speci men Type: SPECIMEN FROM PLEURA OBTAINED BY THORACENTESISOrdering Facility: [facility] Address: [address] [place] [address] Performed By: #### L [id number] ####[facility] LABCLIA [id number] [place] [address] [place]#### CCBF ####[place] LABORATORYCLIA [id number] [place] [address] [place] RBC Manual cnt (Body fld) [#/Vol] <2000 Normal <2000 [facility] Comment on above: Order Comment: Speci men Type: SPECIMEN FROM PLEURA OBTAINED BY THORACENTESISOrdering Facility: [facility] Address: [address] [place] [address] Performed By: #### L [id number] ####[facility] LABCLIA [id number] [place] [address] [place]#### CCBF ####[facility]ORATORYCLIA [id number] [place] [address] [place] Specimen source Nom (Body fld) Pleural Cavity, Right Normal [facility] Comment on above: Order Comment: Speci men Type: SPECIMEN FROM PLEURA OBTAINED BY THORACENTESISOrdering Facility: [facility] Address: [address] [place] [address] Performed By: #### L [id number] ####[facility] LABCLIA [id number] [place] [address] [place]#### CCBF ####[facility]ORATORYCLIA [id number] [place] [address] [place] WBC Manual cnt (Body fld) [#/Vol] 180 /uL Normal <1000 [facility] Comment on above: Order Comment: Speci men Type: SPECIMEN FROM PLEURA OBTAINED BY THORACENTESISOrdering Facility: [facility] Address: [address] [place] [address] Performed By: #### L [id number] ####[facility] LABCLIA [id number] [place] [address] [place]#### CCBF ####[facility]ORATORYCLIA [id number] [place] [id number] [place] Bacteria Fld Culton 01-03-20 25 Bacteria identified Cx Nom (Body fld) CULTURE, BODY FLD: No growth GRAM STAIN: Rare Gram positive cocci Rare Gram positive bacilli Rare Polymorphonuclear leukocytes Gram stain performed on cytospun specimen. Gram stain from primary specimen Abnormal [facility] Comment on above: Performed By: #### 6 35-3, 611-4 ####[facility] LABCLIA [id number] [address] [place] Bacteria Spec Anaerobe Culto n 01-02-2025 Bacteria identified Anaer cx Nom (Unsp spec) Negative Normal [facility] Comment on above: Performed By: #### 6 35-3, 611-4 ####[facility] LABCLIA [id number] [place] [address] [place] Basic metabolic 2000 panelon 01-02-2025 Anion gap [Moles/Vol] 14 mmol/L Normal 8-15 [facility] Comment on above: Order Comment: Speci men Type: BLOOD SPECIMENOrdering Facility: [facility] Address: [address] [place] [address] Performed By: #### 1 9123-9, 30625-6, 2777-1 ####[facility]ORATORYCLIA [id number] [place] [id number] [place] Calcium [Mass/Vol] 9.8 mg/dL Normal 8.5-10.2 [facility] Comment on above: Order Comment: Speci men Type: BLOOD SPECIMENOrdering Facility: [facility] Address: [address] [place] [address] Performed By: #### 1 9123-9, 91366-4, 277- ####[facility] LABORATORYCLIA [id number] [place] [id number] [place] Chloride [Moles/Vol] 92 mmol/L Low 98-107 [facility] Comment on above: Order Comment: Speci men Type: BLOOD SPECIMENOrdering Facility: [facility] Address: [address] [place] [address] Performed By: #### 1 9123-9, 44941-8, 2776- ####[facility] LABORATORYCLIA [id number] [place] [id number] [place] CO2 [Moles/Vol] 32 mmol/L High 22-30 [facility] Comment on above: Order Comment: Speci men Type: BLOOD SPECIMENOrdering Facility: [facility] Address: [address] [place] [address] Performed By: #### 1 9123-9, 91110-6, 2776- ####[facility] LABORATORYCLIA [id number] [place] [id number] [place] Creatinine [Mass/Vol] 0.91 mg/dL Normal 0.73-1.22 [facility] Comment on above: Order Comment: Speci men Type: BLOOD SPECIMENOrdering Facility: [facility] Address: [address] [place] [address] Performed By: #### 1 9123-9, 91855-1, 2776- ####[facility] LABORATORYCLIA [id number] [place] [id number] [place] eGFRcr SerPlBld CKD-EPI 2020 94 mL/min/1.73m??? Normal >=60 [facility] Comment on above: Order Comment: Speci men Type: BLOOD SPECIMENOrdering Facility: [facility] Address: [address] [place] [address] Result Comment: Matilda mated Glomerular Filtration Rate (eGFR) is calculated using the 2020 CKD-EPI creatinine equation. This equation utilizes serum creatinine, sex, and age as parameters. The creatinine assay has traceable calibration to isotope dilution-mass spectrometry. Refer to KDIGO guidelines for clinical interpretation. In patients with unstable renal function, e.g. those with acute kidney injury, the eGFR may not accurately reflect actual GFR. Performed By: #### 1 9123-9, 83348-8, 2776-04 ####[facility] LABORATORYCLIA [id number] [place] [address] [place] Glucose [Mass/Vol] 126 mg/dL High 74-99 [facility] Comment on above: Order Comment: Concetta coronado Type: BLOOD SPECIMENOrdering Facility: [facility] Address: [address] [place] [address] Result Comment: The [place] Diabetes Association (ADA) provides guidance for cutoff values for fasting glucose and random glucose. The ADA defines fasting as no caloric intake for at least 8 hours. Fasting plasma glucose results between 100 to 125 mg/dL indicate increased risk for diabetes (prediabetes).Fasting plasma glucose results greater than or equal to 126 mg/dL meet the criteria for diagnosis of diabetes. In the absence of unequivocal hyperglycemia, results should be confirmed by repeat testing. In a patient with classic symptoms of hyperglycemia or hyperglycemic crisis, random plasma glucose results greater than or equal to 200 mg/dL meet the criteria for diagnosis of diabetes.Reference: Standards of Medical Care in Diabetes 2016, [place] [employer] Association. Diabetes Care. 2016.39(Suppl 1). Performed By: #### 1 9123-9, 87352-7, 2776-04 ####[facility] LABORATORYCLIA [id number] [place] [address] [place] Potassium [Moles/Vol] 3.9 mmol/L Normal 3.7-5.1 [facility] Comment on above: Order Comment: Concetta men Type: BLOOD SPECIMENOrdering Facility: [facility] Address: [address] [place] [address] Performed By: #### 1 9123-9, 81645-8, 2776-04 ####[facility] LABORATORYCLIA [id number] [place] [address] [place] Sodium [Moles/Vol] 138 mmol/L Normal 136-144 [facility] Comment on above: Order Comment: Speci men Type: BLOOD SPECIMENOrdering Facility: [facility] Address: [address] [place] [address] Performed By: #### 1 9123-9, 66692-8, 2777 ####[facility]ORATORYCLIA [id number] [place] [address] [place] Urea nitrogen [Mass/Vol] 47 mg/dL High 9 [facility] Comment on above: Order Comment: Speci men Type: BLOOD SPECIMENOrdering Facility: [facility] Address: [address] [place] [address] Performed By: #### 1 9123-9, 74316-4, 27710-04 ####[facility]ORATORYCLIA [id number] [address] OF [facility] CASE MANAGEMon 01-02-2025 CASE MANAGEM Normal [facility] CBC W Auto Differential pane l (Bld)on 01-02-2025 Basophils (Bld) [#/Vol] 0.05 10*3/uL Normal <0.11 [facility] Comment on above: Order Comment: Speci men Type: BLOOD SPECIMENOrdering Facility: [facility] Address: [address] [place] [address] Performed By: #### 5 7021-8 ####[facility]ORATORYCLIA [id number] [place] [id number] [place] Basophils/100 WBC (Bld) 0.6 % Normal [facility] Comment on above: Order Comment: Speci men Type: BLOOD SPECIMENOrdering Facility: [facility] Address: [address] [place] [address] Performed By: #### 5 7021-8 ####[facility]ORATORYCLIA [id number] [place] [id number] [place] Differential cell count method Nom (Bld) Auto Normal [facility] Comment on above: Order Comment: Speci men Type: BLOOD SPECIMENOrdering Facility: [facility] Address: [address] [place] [address] Performed By: #### 5 7021-8 ####[facility] LABORATORYCLIA [id number] [place] [address] [place] Eosinophils (Bld) [#/Vol] 0.77 10*3/uL High <0.46 [facility] Comment on above: Order Comment: Speci men Type: BLOOD SPECIMENOrdering Facility: [facility] Address: [address] [place] [address] Performed By: #### 5 7021-8 ####[facility] LABORATORYCLIA [id number] [place] [address] [place] Eosinophils/100 WBC (Bld) 8.7 % Normal [facility] Comment on above: Order Comment: Speci men Type: BLOOD SPECIMENOrdering Facility: [facility] Address: [address] [place] [address] Performed By: #### 5 7021-8 ####[facility] LABORATORYCLIA [id number] [place] [address] [place] Erythrocyte distribution width (RBC) [Ratio] 17.3 % High 11.5-15.0 [facility] Comment on above: Order Comment: Speci men Type: BLOOD SPECIMENOrdering Facility: [facility] Address: [address] [place] [address] Performed By: #### 5 7021-8 ####[facility] LABORATORYCLIA [id number] [place] [address] [place] Hematocrit (Bld) [Volume fraction] 43.5 % Normal 39.0-51.0 [facility] Comment on above: Order Comment: Speci men Type: BLOOD SPECIMENOrdering Facility: [facility] Address: [address] [place] [address] Performed By: #### 5 7021-8 ####[facility] LABORATORYCLIA [id number] [place] [address] [place] Hemoglobin (Bld) [Mass/Vol] 14.1 g/dL Normal 13.0-17.0 [facility] Comment on above: Order Comment: Speci men Type: BLOOD SPECIMENOrdering Facility: [facility] Address: [address] [place] [address] Performed By: #### 5 7021-8 ####[facility] LABORATORYCLIA [id number] [place] [id number] [place] Immature granulocytes (Bld) [#/Vol] 0.03 10*3/uL Normal <0.10 [facility] Comment on above: Order Comment: Speci men Type: BLOOD SPECIMENOrdering Facility: [facility] Address: [address] [place] [address] Performed By: #### 5 7021-8 ####[facility] LABORATORYCLIA [id number] [place] [id number] [place] Immature granulocytes/100 WBC (Bld) 0.3 % Normal [facility] Comment on above: Order Comment: Speci men Type: BLOOD SPECIMENOrdering Facility: [facility] Address: [address] [place] [address] Performed By: #### 5 7021-8 ####[facility] LABORATORYCLIA [id number] [place] [address] [place] Lymphocytes (Bld) [#/Vol] 2.20 10*3/uL Normal 1.00-4.00 [facility] Comment on above: Order Comment: Speci men Type: BLOOD SPECIMENOrdering Facility: [facility] Address: [address] [place] [address] Performed By: #### 5 7021-8 ####[facility] LABORATORYCLIA [id number] [place] [id number] [place] Lymphocytes/100 WBC (Bld) 24.9 % Normal [facility] Comment on above: Order Comment: Speci men Type: BLOOD SPECIMENOrdering Facility: [facility] Address: [address] [place] [address] Performed By: #### 5 7021-8 ####[facility] LABORATORYCLIA [id number] [place] [id number] [place] MCH (RBC) [Entitic mass] 28.8 pg Normal 26.0-34.0 [facility] Comment on above: Order Comment: Speci men Type: BLOOD SPECIMENOrdering Facility: [facility] Address: [address] [place] [address] Performed By: #### 5 7021-8 ####[facility] LABORATORYCLIA [id number] [place] [id number] [place] MCHC (RBC) [Mass/Vol] 32.4 g/dL Normal 30.5-36.0 [facility] Comment on above: Order Comment: Speci men Type: BLOOD SPECIMENOrdering Facility: [facility] Address: [address] [place] [address] Performed By: #### 5 7021-8 ####[facility] LABORATORYCLIA [id number] [place] [address] [place] MCV (RBC) [Entitic vol] 89.0 fL Normal 80.0-100.0 [facility] Comment on above: Order Comment: Speci men Type: BLOOD SPECIMENOrdering Facility: [facility] Address: [address] [place] [address] Performed By: #### 5 7021-8 ####[facility] LABORATORYCLIA [id number] [place] [address] [place] Monocytes (Bld) [#/Vol] 0.73 10*3/uL Normal <0.87 [facility] Comment on above: Order Comment: Speci men Type: BLOOD SPECIMENOrdering Facility: [facility] Address: [address] [place] [address] Performed By: #### 5 7021-8 ####[facility] LABORATORYCLIA [id number] [place] [address] [place] Monocytes/100 WBC (Bld) 8.3 % Normal [facility] Comment on above: Order Comment: Speci men Type: BLOOD SPECIMENOrdering Facility: [facility] Address: [address] [place] [address] Performed By: #### 5 7021-8 ####[facility] LABORATORYCLIA [id number] [place] [address] [place] Neutrophils (Bld) [#/Vol] 5.04 10*3/uL Normal 1.45-7.50 [facility] Comment on above: Order Comment: Speci men Type: BLOOD SPECIMENOrdering Facility: [facility] Address: [address] [place] [address] Performed By: #### 5 7021-8 ####[facility] LABORATORYCLIA [id number] [place] [id number] [place] Neutrophils/100 WBC (Bld) 57.2 % Normal [facility] Comment on above: Order Comment: Speci men Type: BLOOD SPECIMENOrdering Facility: [facility] Address: [address] [place] [address] Performed By: #### 5 7021-8 ####[facility] LABORATORYCLIA [id number] [place] [id number] [place] Nucleated RBC (Bld) [#/Vol] 10*3/uL Normal <0.01 [facility] Comment on above: Order Comment: Speci men Type: BLOOD SPECIMENOrdering Facility: [facility] Address: [address] [place] [address] Performed By: #### 5 7021-8 ####[facility] LABORATORYCLIA [id number] [place] [id number] [place] Nucleated RBC/100 WBC (Bld) [Ratio] 0.0 /100 WBC Normal [facility] Comment on above: Order Comment: Speci men Type: BLOOD SPECIMENOrdering Facility: [facility] Address: [address] [place] [address] Performed By: #### 5 7021-8 ####[facility] LABORATORYCLIA [id number] [place] [id number] [place] Platelet mean volume (Bld) [Entitic vol] 9.7 fL Normal 9.0-12.7 [facility] Comment on above: Order Comment: Speci men Type: BLOOD SPECIMENOrdering Facility: [facility] Address: [address] [place] [address] Performed By: #### 5 7021-8 ####[facility] LABORATORYCLIA [id number] [place] [id number] [place] Platelets (Bld) [#/Vol] 329 10*3/uL Normal 150-400 [facility] Comment on above: Order Comment: Speci men Type: BLOOD SPECIMENOrdering Facility: [facility] Address: [address] [place] [address] Performed By: #### 5 7021-8 ####[facility] LABORATORYCLIA [id number] [place] [id number] [place] RBC (Bld) [#/Vol] 4.89 10*6/uL Normal 4.20-6.00 [facility] Comment on above: Order Comment: Speci men Type: BLOOD SPECIMENOrdering Facility: [facility] Address: [address] [place] [address] Performed By: #### 5 7021-8 ####[facility] LABORATORYCLIA [id number] [place] [id number] [place] WBC (Bld) [#/Vol] 8.82 10*3/uL Normal 3.70-11.00 [facility] Comment on above: Order Comment: Speci men Type: BLOOD SPECIMENOrdering Facility: [facility] Address: [address] [place] [address] Performed By: #### 5 7021-8 ####[facility] LABORATORYCLIA [id number] [place] [id number] [place] CONSULTon 01-02-2025 CONSULT Normal [facility] CONSULT PROGon 01-02-2025 CONSULT PROG [facility] CONSULT PROG Normal [facility] CONSULT PROG [facility] CYTOLOGY NON-GYNon 5 AP DISCLAIMER Normal [facility] Comment on above: Order Comment: Speci men Type: SPECIMEN FROM PLEURA OBTAINED BY THORACENTESISOrdering Facility: [facility] Address: [address] [place] [address] Result Comment: Shelly castillo Developed Test (LDT) Disclaimer:Performance characteristics of immunohistochemical, immunofluorescent, and chromogenic in-situ hybridization tests have been determined by the performing laboratory within the [facility] Department of Pathology and Laboratory Medicine ([facility], [facility], [facility], [facility], [facility], [facility], or [facility]) in a manner consistent with CLIA requirements. One or more of these tests may not have been cleared or approved by the FDA. The [facility] Department of Pathology and Laboratory Medicine is regulated under CLIA as qualified to perform high-complexity testing. These tests are used for clinical purposes. These should not be regarded as investigational or for research. Positive and negative controls stain appropriately. Performed By: #### C YTONON ####[facility] LABORATORYCLIA [id number] [place] [id number] [facility] CASE REPORT Normal [facility] Comment on above: Order Comment: Speci men Type: SPECIMEN FROM PLEURA OBTAINED BY THORACENTESISOrdering Facility: [facility] Address: [address] [place] [address] Result Comment: [facility] Cytology Report Case: [id number] Provider: Kristian Simon MD Collected: 01/02/2025 01:34 PMOrdering Location: [facility] Received: 01/02/2025 02:45 PM Endoscopy - ENDOPathologist: Chaya Gordillo MDSpecimen: Pleural Cavity, Right Performed By: #### C YTONON ####[facility] LABORATORYCLIA [id number] [place] [id number] [facility] CLINICAL HISTORY Normal [facility] Comment on above: Order Comment: Speci men Type: SPECIMEN FROM PLEURA OBTAINED BY THORACENTESISOrdering Facility: [facility] Address: [address] [place] [address] Result Comment: Pre- op diagnosis:Pleural effusion [J90] Performed By: #### C YTONON ####[facility] LABORATORYCLIA [id number] [place] [id number] [facility] FINAL DIAGNOSIS Normal [facility] Comment on above: Order Comment: Speci men Type: SPECIMEN FROM PLEURA OBTAINED BY THORACENTESISOrdering Facility: [facility] Address: [address] [place] [address] Result Comment: A - Pleural Cavity, Right, Fluid. Negative for malignant cells. Reactive mesothelial cells.The following cell blocks were associated with this case:A1 Cell Block, Alcohol Fixed at 0935 EDT Performed By: #### C YTONON ####[facility]ORATORYCLIA [id number] [address] OF [facility] FINAL PERFORMING LAB Normal [facility] Comment on above: Order Comment: Speci men Type: SPECIMEN FROM PLEURA OBTAINED BY THORACENTESISOrdering Facility: [facility] Address: [address] [place] [address] Result Comment: Tech nical component, bilingual teacher screening performed at: [facility], [address] [place] [address] CLIA: [id number] interpretation performed at: [facility], [address] [place] [address] CLIA# [id number] Director: Jaxson Saenz MD Performed By: #### C YTONON ####[facility] LABORATORYCLIA [id number] [address] GROSS DESCRIPTION Normal [facility] Comment on above: Order Comment: Speci men Type: SPECIMEN FROM PLEURA OBTAINED BY THORACENTESISOrdering Facility: [facility] Address: [address] [place] [address] Result Comment: A. P leural Cavity, Right8 cc clear yellow fluid with material. ThinPrep and Cell Block prepared. Performed By: #### C YTONON ####[facility]ORATORYCLIA [id number] [address] OF [place] ORDER COMMENT Normal [facility] Comment on above: Order Comment: Speci men Type: SPECIMEN FROM PLEURA OBTAINED BY THORACENTESISOrdering Facility: [facility] Address: [address] [place] [address] Result Comment: Pre- op diagnosis:Pleural effusion [J90] Performed By: #### C YTONON ####[facility] LABORATORYCLIA [id number] [address] [place] Cholest Fld-mCncon 5 Cholesterol (Body fld) [Mass/Vol] 27 mg/dL Normal See Comment [facility] Comment on above: Order Comment: Speci men Type: SPECIMEN FROM PLEURA OBTAINED BY THORACENTESISOrdering Facility: [facility] Address: [address] [place] [address] Result Comment: SYNO VIAL FLUIDS:Synovial fluid cholesterol measurement may be useful in classifying various joint disorders. The reference range for adult synovial fluid cholesterol measurement is less than or equal to 65% of the concurrent plasma cholesterol measurement.SEROUS FLUIDS:Serous fluid cholesterol measurement may be useful in determining the etiology of the effusion. A serous fluid cholesterol measurement >200 mg/dL is suggestive of a pseudochylous effusion. A serous fluid cholesterol measurement greater than or equal to 45 mg/dL is suggestive of an exudate. A serous fluid cholesterol measurement <45 mg/dL is suggestive of a transudate.Reference:1. CLSI. Analysis of Body Fluids in Clinical Chemistry; Approved Guideline. CLSI document C49-A. NILSON Honeycutt: Clinical Laboratory Standards [place]; 2007. Performed By: #### 2 344-0, 2881-1, 1795-4, 1747-5, 80532-0, 40951-4, 77164-4, 2529-6 ####[facility] LABCLIA [id number] [place] [address] [place] Gas and Carbon monoxide pane l (BldV)on 01-02-2025 Base excess Calc (BldV) [Moles/Vol] 10 mmol/L High 0-2 [facility] Comment on above: Order Comment: Speci men Type: VENOUS BLOOD SPECIMENOrdering Facility: [facility] Address: [address] [place] [address] Performed By: #### 2 4344-4 ####[facility] LABORATORYCLIA [id number] [place] [id number] [place] Body temperature 32 [degF] Normal [facility] Comment on above: Order Comment: Speci men Type: VENOUS BLOOD SPECIMENOrdering Facility: [facility] Address: [address] [place] [address] Performed By: #### 2 4344-4 ####[facility] LABORATORYCLIA [id number] [place] [address] [place] Calcium.ionized (Bld) [Mass/Vol] 1.15 mmol/L Normal 1.08-1.30 [facility] Comment on above: Order Comment: Speci men Type: VENOUS BLOOD SPECIMENOrdering Facility: [facility] Address: [address] [place] [address] Performed By: #### 2 4344-4 ####[facility] LABORATORYCLIA [id number] [place] [address] [place] Calcium.ionized adjusted to pH 7.4 (BldA) [Moles/Vol] 1.19 mmol/L Normal 1.08-1.30 [facility] Comment on above: Order Comment: Speci men Type: VENOUS BLOOD SPECIMENOrdering Facility: [facility] Address: [address] [place] [address] Performed By: #### 2 4344-4 ####[facility] LABORATORYCLIA [id number] [place] [address] [place] Carboxyhemoglobin (BldV) [Mass fraction] 2.1 % High 0.0-2.0 [facility] Comment on above: Order Comment: Speci men Type: VENOUS BLOOD SPECIMENOrdering Facility: [facility] Address: [address] [place] [address] Result Comment: Carb oxyhemoglobin Reference Range for Smokers: 2.0-8.0% Performed By: #### 2 4344-4 ####[facility] LABORATORYCLIA [id number] [place] [address] [place] Chloride [Moles/Vol] 90 mmol/L Low 97-105 [facility] Comment on above: Order Comment: Speci men Type: VENOUS BLOOD SPECIMENOrdering Facility: [facility] Address: [address] [place] [address] Performed By: #### 2 4344-4 ####[facility] LABORATORYCLIA [id number] [place] [address] [place] CO2 (BldV) [Partial pressure] 49 mm[Hg] Normal 42-55 [facility] Comment on above: Order Comment: Speci men Type: VENOUS BLOOD SPECIMENOrdering Facility: [facility] Address: [address] [place] [address] Performed By: #### 2 4344-4 ####[facility] LABORATORYCLIA [id number] [place] [id number] [place] CO2 adjusted to patient's actual temperature (BldV) [Partial pressure] Normal [facility] Comment on above: Order Comment: Speci men Type: VENOUS BLOOD SPECIMENOrdering Facility: [facility] Address: [address] [place] [address] Performed By: #### 2 4344-4 ####[facility] LABORATORYCLIA [id number] [place] [address] [place] Glucose [Mass/Vol] 200 mg/dL High 60-105 [facility] Comment on above: Order Comment: Speci men Type: VENOUS BLOOD SPECIMENOrdering Facility: [facility] Address: [address] [place] [address] Performed By: #### 2 4344-4 ####[facility] LABORATORYCLIA [id number] [place] [address] [place] HCO3 (Bld) [Moles/Vol] 35 mmol/L High 24-28 [facility] Comment on above: Order Comment: Speci men Type: VENOUS BLOOD SPECIMENOrdering Facility: [facility] Address: [address] [place] [address] Performed By: #### 2 4344-4 ####[facility] LABORATORYCLIA [id number] [place] [id number] [place] Hematocrit (Bld) [Volume fraction] 44.9 % Normal 39.0-51.0 [facility] Comment on above: Order Comment: Speci men Type: VENOUS BLOOD SPECIMENOrdering Facility: [facility] Address: [address] [place] [address] Performed By: #### 2 4344-4 ####[facility] LABORATORYCLIA [id number] [place] [address] [place] Hemoglobin (Bld) [Mass/Vol] 14.6 g/dL Normal 13.0-17.0 [facility] Comment on above: Order Comment: Speci men Type: VENOUS BLOOD SPECIMENOrdering Facility: [facility] Address: [address] [place] [address] Performed By: #### 2 4344-4 ####[facility]ORATORYCLIA [id number] [place] [id number] [place] Lactate [Moles/Vol] 1.6 mmol/L Normal 0.5-2.2 [facility] Comment on above: Order Comment: Speci men Type: VENOUS BLOOD SPECIMENOrdering Facility: [facility] Address: [address] [place] [address] Performed By: #### 2 4344-4 ####[facility]ORATORYCLIA [id number] [address] [place] Methemoglobin (Bld) [Mass fraction] 0.5 % Normal 0.0-1.5 [facility] Comment on above: Order Comment: Speci men Type: VENOUS BLOOD SPECIMENOrdering Facility: [facility] Address: [address] [place] [address] Performed By: #### 2 4344-4 ####[facility] LABORATORYCLIA [id number] [address] O2 THERAPY Other - See comment Normal [facility] Comment on above: Order Comment: Speci men Type: VENOUS BLOOD SPECIMENOrdering Facility: [facility] Address: [address] [place] [address] Performed By: #### 2 4344-4 ####[facility]ORATORYCLIA [id number] [place] [id number] [place] Oxygen (BldV) [Partial pressure] 82 mm[Hg] High 35-45 [facility] Comment on above: Order Comment: Speci men Type: VENOUS BLOOD SPECIMENOrdering Facility: [facility] Address: [address] [place] [address] Performed By: #### 2 4344-4 ####[facility] LABORATORYCLIA [id number] [place] [id number] [facility] Oxygen adjusted to patient's actual temperature (BldV) [Partial pressure] Normal [facility] Comment on above: Order Comment: Speci men Type: VENOUS BLOOD SPECIMENOrdering Facility: [facility] Address: [address] [place] [address] Performed By: #### 2 4344-4 ####[facility]ORATORYCLIA [id number] [place] [id number] [place] Oxygen saturation in Venous blood 98 % High 60-85 [facility] Comment on above: Order Comment: Speci men Type: VENOUS BLOOD SPECIMENOrdering Facility: [facility] Address: [address] [place] [address] Performed By: #### 2 4344-4 ####[facility]ORATORYCLIA [id number] [place] [id number] [place] Oxyhemoglobin (BldV) [Mass fraction] 95 % High 60-85 [facility] Comment on above: Order Comment: Speci men Type: VENOUS BLOOD SPECIMENOrdering Facility: [facility] Address: [address] [place] [address] Performed By: #### 2 4344-4 ####[facility] LABORATORYCLIA [id number] [place] [address] [place] pH (BldV) 7.47 [pH] High 7.32-7.42 [facility] Comment on above: Order Comment: Speci men Type: VENOUS BLOOD SPECIMENOrdering Facility: [facility] Address: [address] [place] [address] Performed By: #### 2 4344-4 ####[facility]ORATORYCLIA [id number] [place] [id number] [place] pH adjusted to patient's actual temperature (BldV) Normal [facility] Comment on above: Order Comment: Speci men Type: VENOUS BLOOD SPECIMENOrdering Facility: [facility] Address: [address] [place] [address] Performed By: #### 2 4344-4 ####[facility] LABORATORYCLIA [id number] [place] [id number] [place] Potassium [Moles/Vol] 4.3 mmol/L Normal 3.5-5.0 [facility] Comment on above: Order Comment: Speci men Type: VENOUS BLOOD SPECIMENOrdering Facility: [facility] Address: [address] [place] [address] Performed By: #### 2 4344-4 ####[facility]ORATORYCLIA [id number] [place] [id number] [place] Sodium [Moles/Vol] 138 mmol/L Normal 136-144 [facility] Comment on above: Order Comment: Speci men Type: VENOUS BLOOD SPECIMENOrdering Facility: [facility] Address: [address] [place] [address] Performed By: #### 2 4344-4 ####[facility]ORATORYCLIA [id number] [place] [address] [place] Glucose Fld-mCncon 5 Glucose (Body fld) [Mass/Vol] 223 mg/dL Normal See Comment [facility] Comment on above: Order Comment: Speci men Type: SPECIMEN FROM PLEURA OBTAINED BY THORACENTESISOrdering Facility: [facility] Address: [address] [place] [address] Result Comment: Syno vial fluid: Synovial fluid glucose measurement may be useful in classifying various joint disorders. A concurrent plasma glucose measurement should be performed to determine the glucose plasma minus glucose synovial fluid???difference, which is normally <= 10.0 mg/dL.Artificial lowering of synovial fluid glucose, due to glycolytic action of leukocytes, may result from analyses that occur more than one hour from the time of collection.Reference: 1. CLSI. Analysis of Body Fluids in Clinical Chemistry Approved Guideline. CLSI document C49A. NILSON Honeycutt: Clinical Laboratory Standards [place]: 2007. Performed By: #### 2 344-0, 2881-1, 1795-4, 1747-5, 62893-2, 96031-4, 54418-8, 2529-6 ####[facility] LABCLIA [id number] [place] [address] [place] HISTORY PHYSICALon 5 HISTORY PHYSICAL Normal [facility] LDH Fld-cCncon 01-02-2025 LDH (Body fld) [Catalytic activity/Vol] 83 U/L Normal See Comment [facility] Comment on above: Order Comment: Speci men Type: SPECIMEN FROM PLEURA OBTAINED BY THORACENTESISOrdering Facility: [facility] Address: [address] [place] [address] Result Comment: Pleu ral fluids: Pleural fluid lactate dehydrogenase (LDH) measurements may be useful for classifying pleural effusions as exudates. A ratio of pleural fluid LDH to a concurrent serum LDH > 0.6 is suggestive of exudate.Peritoneal fluids: Ascitic fluid LDH measurements may aid in characterizing secondary peritonitis and should be interpreted along with other clinical and laboratory information.Synovial fluids: Synovial fluid LDH measurements may be useful as an inflammatory marker for various arthritic conditions and should be interpreted along with other clinical and laboratory information.Reference: 1. CLSI. Analysis of Body Fluids in Clinical Chemistry Approved Guideline. CLSI document C49A. NILSON Honeycutt: Clinical Laboratory Standards [place]: 2007.Reference: 2. Tenzin WILLIAM, Pradip Segura. Body fluid analysis: clinical utility and applicability of published studies to guide interpretation of today's laboratory testing in serous fluids. Crit Rev Clin Lab Sci, 2013:50(4,5):107 to 124.Reference: 3. Lisa M, Felicity A, Maris WILLIAM. Lactate dehydrogenase activity and its isoenzymes in serum and synovial fluid of patients with rheumatoid arthritis and osteoarthritis. J Rheumatol. 1992:19:529 to 533. Performed By: #### 2 344-0, 2881-1, 1795-4, 1747-5, 67889-7, 87697-7, 64109-9, 2529-6 ####[facility] LABCLIA [id number] [place] [address] [place] Lipase Fld-cCncon 01-02-2025 Lipase (Body fld) [Catalytic activity/Vol] 5 U/L Normal See Comment [facility] Comment on above: Order Comment: Speci men Type: SPECIMEN FROM PLEURA OBTAINED BY THORACENTESISOrdering Facility: [facility] Address: [address] [place] [address] Result Comment: Pleu ral fluids: Lipase measurement in pleural fluid, in conjunction with amylase measurement, is considered a useful test for determining the cause of pleural effusions.Peritoneal fluids and drainage fluids: Pancreatic damage causes extravasation of lipase from the exocrine cells into the peritoneal space. In cases of pancreatitis, fluid lipase concentration can be several-fold times higher in fluid of pancreatic origin compared to concurrent serum lipase values.Pancreatic cyst fluid: Pancreatic cyst fluid lipase may aid in the differentiation of pancreatic cyst lesions and should be interpreted along with other clinical and laboratory information.References:1. CLSI. Analysis of Body Fluids in Clinical Chemistry Approved Guideline. CLSI document C49A. NILSON Honeycutt: Clinical Laboratory Standards [place]: 2007.2. Alex Pantoja. A review of pancreatic cyst fluid analysis in the differential diagnosis of pancreatic cyst lesions. Claudia Clin Biochem OnlineFirst 2013:0:1-16. Performed By: #### 2 344-0, 2881-1, 1795-4, 1747-5, 01772-2, 24257-3, 02159-9, 2529-6 ####[facility] LABCLIA [id number] [place] [address] [place] MANUAL DIFFERENTIAL, BODY FL UIDon 01-02-2025 DIF TTL, BODY FLUID 100 cells counted Normal [facility] Comment on above: Order Comment: Speci men Type: SPECIMEN FROM PLEURA OBTAINED BY THORACENTESISOrdering Facility: [facility] Address: [address] [place] [address] Performed By: #### L [id number] ####[facility] LABCLIA [id number] [place] [address] [place]#### CCBF ####[facility]ORATORYCLIA [id number] [place] [id number] [place] LYMPH%, BF 45 % High 18-36 [facility] Comment on above: Order Comment: Speci men Type: SPECIMEN FROM PLEURA OBTAINED BY THORACENTESISOrdering Facility: [facility] Address: [address] [place] [address] Performed By: #### L [id number] ####[facility] LABCLIA [id number] [place] [id number] [place]#### CCBF ####[facility]ORATORYCLIA [id number] [place] [address] [place] MESO %, BF 7 % High 0-2 [facility] Comment on above: Order Comment: Speci men Type: SPECIMEN FROM PLEURA OBTAINED BY THORACENTESISOrdering Facility: [facility] Address: [address] [place] [address] Result Comment: Daisha ected result: Previously reported as 5 % on 01/02/2025 at 4:28 PM EDT. Performed By: #### L [id number] ####[facility] LABCLIA [id number] [address] [place]#### CCBF ####[facility]ITALCLIA [id number] [place] [address] [place] MONOCYTES/MACROPHAGES %, BF 31 % Low 64-80 [facility] Comment on above: Order Comment: Speci men Type: SPECIMEN FROM PLEURA OBTAINED BY THORACENTESISOrdering Facility: [facility] Address: [address] [place] [address] Performed By: #### L [id number] ####[facility] LABCLIA [id number] [address] [place]#### CCBF ####[facility]ORATORYCLIA [id number] [place] [address] [place] NEUT%, BF 17 % High 0-1 [facility] Comment on above: Order Comment: Speci men Type: SPECIMEN FROM PLEURA OBTAINED BY THORACENTESISOrdering Facility: [facility] Address: [facility] [place] [address] Performed By: #### L [id number] ####[facility] LABCLIA [id number] [place] [address] [place]#### CCBF ####[facility]ATORYCLIA [id number] [place] [address] [place] OTHER CL%, BF Normal [facility] Comment on above: Order Comment: Speci men Type: SPECIMEN FROM PLEURA OBTAINED BY THORACENTESISOrdering Facility: [facility] Address: [address] [place] [address] Result Comment: Prel iminary Result has been updated after Staff Review.Corrected result: Previously reported as 2 % on 01/02/2025 at 4:28 PM EDT. Performed By: #### L [id number] ####[facility] LABCLIA [id number] [address] OF [facility]#### CCBF ####[facility]ORATORYCLIA [id number] [place] [address] [place] Magnesium SerPl-ncon 01-02 Magnesium [Mass/Vol] 2.0 mg/dL Normal 1.7-2.3 [facility] Comment on above: Order Comment: Speci men Type: BLOOD SPECIMENOrdering Facility: [facility] Address: [address] [place] [address] Performed By: #### 1 9123-9, 71093-1, 2777-1 ####[facility]ATORYCLIA [id number] [place] [id number] [facility] OPERATIVE NOon 01-02-2025 OPERATIVE NO Normal [facility] Phosphate SerPl-ncon 01-02 Phosphate [Mass/Vol] 3.8 mg/dL Normal 2.7-4.8 [facility] Comment on above: Order Comment: Speci men Type: BLOOD SPECIMENOrdering Facility: [facility] Address: [address] [place] [address] Performed By: #### 1 9123-9, 99342-9, 2777-1 ####[facility]ATORYCLIA [id number] [place] [address] [place] Prot Fld-mCncon 01-02-2025 Protein (Body fld) [Mass/Vol] 2.4 g/dL Normal See Comment [facility] Comment on above: Order Comment: Speci men Type: SPECIMEN FROM PLEURA OBTAINED BY THORACENTESISOrdering Facility: [facility] Address: [address] [place] [address] Result Comment: Sero us fluids: Effusions are the accumulation of clinically detected fluid in any of the serous cavities. Effusions are further into transudates and exudates, which aid in determining the etiology of the effusion.Transudate: Body fluid total protein measurement < 3.0 g/dL. A ratio of serous fluid total protein to a concurrent serum total protein < 0.5 indicates a transudate.Exudate: Body fluid total protein measurement >= 3.0 g/dL. A ratio of serous fluid total protein to a concurrent serum total protein >= 0.5 indicates an exudate.Reference: 1. CLSI. Analysis of Body Fluids in Clinical Chemistry Approved Guideline. CLSI document C49A. NILSON Honeycutt: Clinical Laboratory Standards [place]: 2007. Performed By: #### 2 344-0, 2881-1, 1795-4, 1747-5, 82085-3, 31454-0, 14671-9, 2529-6 ####[facility] LABCLIA [id number] [place] [address] [place] THERAPY NTon 01-02-2025 THERAPY NT Normal [facility] THERAPY NT Normal [facility] TYPE + SCREENon 01-02-2025 ABO A [facility] Comment on above: Order Comment: Speci men Type: BLOOD SPECIMENOrdering Facility: [facility] Address: [address] [place] [address] Performed By: #### T SCR ####[facility] BANKCLIA [id number] [place] [id number] [place] Rh Nom (Bld) Positive [facility] Comment on above: Order Comment: Speci men Type: BLOOD SPECIMENOrdering Facility: [facility] Address: [address] [place] [address] Performed By: #### T SCR ####[facility] BANKCLIA [id number] [place] [id number] [place] TYPE AND SCREEN EXPIRATION 01/05/2025 23:59 Normal [facility] Comment on above: Order Comment: Speci men Type: BLOOD SPECIMENOrdering Facility: [facility] Address: [address] [place] [address] Performed By: #### T SCR ####[facility] BANKCLIA [id number] [place] [id number] [place] Trigl Fld-mCncon 01-02-2025 Triglyceride (Body fld) [Mass/Vol] 18 mg/dL Normal [facility] Comment on above: Order Comment: Speci men Type: SPECIMEN FROM PLEURA OBTAINED BY THORACENTESISOrdering Facility: [facility] Address: [address] [place] [address] Result Comment: Syno vial fluids: Synovial fluid triglycerides measurement may be useful in classifying various joint disorders. ???The reference range for adult synovial fluid triglycerides measurement is <=40% of the concurrent plasma cholesterol measurement.Serous fluids: Serous fluid triglycerides measurement may be useful in classifying the effusion as chylous or nonchylous. ???A serous fluid triglycerides measurement >110 mg/dL is suggestive of a chylous effusion. ???A serous fluid triglycerides measurement <=110 mg/dL is suggestive of a nonchylous effusion.Reference: 1. CLSI. Analysis of Body Fluids in Clinical Chemistry;Approved Guideline. CLSI document C49A. NILSON Honeycutt: Clinical Laboratory Standards [place]; 2007. Performed By: #### 2 344-0, 2881-1, 1795-4, 1747-5, 64717-8, 51990-9, 26369-6, 2529-6 ####[facility] LABCLIA [id number] [place] [address] [place] XR CHEST 1V FRONTALon 2024 XR CHEST 1V FRONTAL Normal [facility] pH Fldon 01-02-2025 pH (Body fld) 8.2 [pH] Normal [facility] Comment on above: Order Comment: Speci men Type: SPECIMEN FROM PLEURA OBTAINED BY THORACENTESISOrdering Facility: [facility] Address: [address] [place] [id number] Result Comment: No r eference range has been established for this specimen type.This test was developed, and its performance characteristics determined by the [facility] Department of Pathology and Laboratory Medicine. It has not been cleared or approved by the FDA. The [facility] Department of Pathology and Laboratory Medicine is regulated under CLIA as qualified to perform high-complexity testing. This test is used for clinical purposes. It should not be regarded as investigational or for research. Performed By: #### 2 748-2 ####[facility] LABCLIA [id number] [address] [address] [place] ALLIED HEALTHon 01-01-2025 ALLIED HEALTH Normal [facility] ALLIED HEALTH Normal [facility] Basic metabolic 2000 panelon 01-01-2025 Anion gap [Moles/Vol] 13 mmol/L Normal 8-15 [facility] Comment on above: Order Comment: Speci men Type: BLOOD SPECIMENOrdering Facility: [facility] Address: [address] [place], [place] [address] Performed By: #### 2 4321-2, 2777-1, 82786-0, 66404-0 ####[facility]ITALCLIA [id number] [place] [address] [place] Calcium [Mass/Vol] 9.4 mg/dL Normal 8.5-10.2 [facility] Comment on above: Order Comment: Speci men Type: BLOOD SPECIMENOrdering Facility: [facility] Address: [address] [place] [address] Performed By: #### 2 4321-2, 2777-1, 18077-7, 16048-5 ####[facility]ORATORYCLIA [id number] [place] [address] [place] Chloride [Moles/Vol] 98 mmol/L Normal 98-107 [facility] Comment on above: Order Comment: Speci men Type: BLOOD SPECIMENOrdering Facility: [facility] Address: [address] [place] [address] Performed By: #### 2 4321-2, 2777-1, 16078-5, 37990-5 ####[facility]ORATORYCLIA [id number] [place] [address] [place] CO2 [Moles/Vol] 26 mmol/L Normal 22-30 [facility] Comment on above: Order Comment: Speci men Type: BLOOD SPECIMENOrdering Facility: [facility] Address: [address] [place] [address] Performed By: #### 2 4321-2, 2777-1, 12909-6, 15195-1 ####[facility]ORATORYCLIA [id number] [place] [id number] [place] Creatinine [Mass/Vol] 0.93 mg/dL Normal 0.73-1.22 [facility] Comment on above: Order Comment: Speci men Type: BLOOD SPECIMENOrdering Facility: [facility] Address: [address] [place] [address] Performed By: #### 2 4321-2, 2777-1, 33366-4, 69798-7 ####[facility]ORATORYCLIA [id number] [place] [id number] [place] eGFRcr SerPlBld CKD-EPI 2020 92 mL/min/1.73m??? Normal >=60 [facility] Comment on above: Order Comment: Speci men Type: BLOOD SPECIMENOrdering Facility: [facility] Address: [address] [place] [address] Result Comment: Matilda mated Glomerular Filtration Rate (eGFR) is calculated using the 2020 CKD-EPI creatinine equation. This equation utilizes serum creatinine, sex, and age as parameters. The creatinine assay has traceable calibration to isotope dilution-mass spectrometry. Refer to KDIGO guidelines for clinical interpretation. In patients with unstable renal function, e.g. those with acute kidney injury, the eGFR may not accurately reflect actual GFR. Performed By: #### 2 4321-2, 2777-1, 69643-2, 28594-3 ####[facility] LABORATORYCLIA [id number] [place] [id number] [place] Glucose [Mass/Vol] 179 mg/dL High 74-99 [facility] Comment on above: Order Comment: Speci men Type: BLOOD SPECIMENOrdering Facility: [facility] Address: [address] [place] [address] Result Comment: The [place] [employer] (ADA) provides guidance for cutoff values for fasting glucose and random glucose. The ADA defines fasting as no caloric intake for at least 8 hours. Fasting plasma glucose results between 100 to 125 mg/dL indicate increased risk for diabetes (prediabetes).Fasting plasma glucose results greater than or equal to 126 mg/dL meet the criteria for diagnosis of diabetes. In the absence of unequivocal hyperglycemia, results should be confirmed by repeat testing. In a patient with classic symptoms of hyperglycemia or hyperglycemic crisis, random plasma glucose results greater than or equal to 200 mg/dL meet the criteria for diagnosis of diabetes.Reference: Standards of Medical Care in Diabetes 2016, [place] [employer]. Diabetes Care. 2016.39(Suppl 1). Performed By: #### 2 4321-2, 2777-1, 23660-4, ####[facility] LABORATORYCLIA [id number] [place] [id number] [place] Potassium [Moles/Vol] 4.2 mmol/L Normal 3.7-5.1 [facility] Comment on above: Order Comment: Speci men Type: BLOOD SPECIMENOrdering Facility: [facility] Address: [address] [id number] Performed By: #### 2 4321-2, 2777-1, 63083-9, ####[facility] LABORATORYCLIA [id number] [place] [id number] [place] Sodium [Moles/Vol] 137 mmol/L Normal 136-144 [facility] Comment on above: Order Comment: Speci men Type: BLOOD SPECIMENOrdering Facility: [facility] Address: [address] [place] [address] Performed By: #### 2 4321-2, 2777-1, 99802-3, ####[facility] LABORATORYCLIA [id number] [place] [id number] [place] Urea nitrogen [Mass/Vol] 41 mg/dL High 9-24 [facility] Comment on above: Order Comment: Speci men Type: BLOOD SPECIMENOrdering Facility: [facility] Address: [address] [id number] Performed By: #### 2 4321-2, 2777-1, 91967-1, 48554-7 ####[facility] LABORATORYCLIA [id number] [place] [id number] [place] CBC W Auto Differential pane l (Bld)on 01-01-2025 Basophils (Bld) [#/Vol] 0.03 10*3/uL Normal <0.11 [facility] Comment on above: Order Comment: Speci men Type: BLOOD SPECIMENOrdering Facility: [facility] Address: [address] [place] [address] Performed By: #### 5 7021-8 ####[facility] LABORATORYCLIA [id number] [place] [id number] [place] Basophils/100 WBC (Bld) 0.4 % Normal [facility] Comment on above: Order Comment: Speci men Type: BLOOD SPECIMENOrdering Facility: [facility] Address: [address] [place] [address] Performed By: #### 5 7021-8 ####[facility] LABORATORYCLIA [id number] [place] [id number] [place] Differential cell count method Nom (Bld) Auto Normal [facility] Comment on above: Order Comment: Speci men Type: BLOOD SPECIMENOrdering Facility: [facility] Address: [address] [place] [address] Performed By: #### 5 7021-8 ####[facility] LABORATORYCLIA [id number] [place] [id number] [place] Eosinophils (Bld) [#/Vol] 0.40 10*3/uL Normal <0.46 [facility] Comment on above: Order Comment: Speci men Type: BLOOD SPECIMENOrdering Facility: [facility] Address: [address] [place] [address] Performed By: #### 5 7021-8 ####[facility] LABORATORYCLIA [id number] [place] [id number] [place] Eosinophils/100 WBC (Bld) 5.0 % Normal [facility] Comment on above: Order Comment: Speci men Type: BLOOD SPECIMENOrdering Facility: [facility] Address: [address] [place] [address] Performed By: #### 5 7021-8 ####[facility] LABORATORYCLIA [id number] [place] [address] [place] Erythrocyte distribution width (RBC) [Ratio] 17.6 % High 11.5-15.0 [facility] Comment on above: Order Comment: Speci men Type: BLOOD SPECIMENOrdering Facility: [facility] Address: [address] [place] [address] Performed By: #### 5 7021-8 ####[facility] LABORATORYCLIA [id number] [place] [address] [place] Hematocrit (Bld) [Volume fraction] 43.4 % Normal 39.0-51.0 [facility] Comment on above: Order Comment: Speci men Type: BLOOD SPECIMENOrdering Facility: [facility] Address: [address] [place] [address] Performed By: #### 5 7021-8 ####[facility] LABORATORYCLIA [id number] [place] [address] [place] Hemoglobin (Bld) [Mass/Vol] 13.9 g/dL Normal 13.0-17.0 [facility] Comment on above: Order Comment: Speci men Type: BLOOD SPECIMENOrdering Facility: [facility] Address: [address] [place] [address] Performed By: #### 5 7021-8 ####[facility] LABORATORYCLIA [id number] [place] [id number] [place] Immature granulocytes (Bld) [#/Vol] 10*3/uL Normal <0.10 [facility] Comment on above: Order Comment: Speci men Type: BLOOD SPECIMENOrdering Facility: [facility] Address: [address] [place] [address] Performed By: #### 5 7021-8 ####[facility] LABORATORYCLIA [id number] [place] [id number] [place] Immature granulocytes/100 WBC (Bld) 0.2 % Normal [facility] Comment on above: Order Comment: Speci men Type: BLOOD SPECIMENOrdering Facility: [facility] Address: [address] [place] [address] Performed By: #### 5 7021-8 ####[facility] LABORATORYCLIA [id number] [place] [address] [place] Lymphocytes (Bld) [#/Vol] 1.82 10*3/uL Normal 1.00-4.00 [facility] Comment on above: Order Comment: Speci men Type: BLOOD SPECIMENOrdering Facility: [facility] Address: [address] [place] [address] Performed By: #### 5 7021-8 ####[facility] LABORATORYCLIA [id number] [place] [address] [place] Lymphocytes/100 WBC (Bld) 22.7 % Normal [facility] Comment on above: Order Comment: Speci men Type: BLOOD SPECIMENOrdering Facility: [facility] Address: [address] [place] [address] Performed By: #### 5 7021-8 ####[facility] LABORATORYCLIA [id number] [place] [address] [place] MCH (RBC) [Entitic mass] 28.7 pg Normal 26.0-34.0 [facility] Comment on above: Order Comment: Speci men Type: BLOOD SPECIMENOrdering Facility: [facility] Address: [address] [place] [address] Performed By: #### 5 7021-8 ####[facility] LABORATORYCLIA [id number] [place] [address] [place] MCHC (RBC) [Mass/Vol] 32.0 g/dL Normal 30.5-36.0 [facility] Comment on above: Order Comment: Speci men Type: BLOOD SPECIMENOrdering Facility: [facility] Address: [address] [place] [address] Performed By: #### 5 7021-8 ####[facility] LABORATORYCLIA [id number] [place] [address] [place] MCV (RBC) [Entitic vol] 89.7 fL Normal 80.0-100.0 [facility] Comment on above: Order Comment: Speci men Type: BLOOD SPECIMENOrdering Facility: [facility] Address: [address] [place] [address] Performed By: #### 5 7021-8 ####[facility] LABORATORYCLIA [id number] [place] [id number] [place] Monocytes (Bld) [#/Vol] 0.57 10*3/uL Normal <0.87 [facility] Comment on above: Order Comment: Speci men Type: BLOOD SPECIMENOrdering Facility: [facility] Address: [address] [place] [address] Performed By: #### 5 7021-8 ####[facility] LABORATORYCLIA [id number] [place] [address] [place] Monocytes/100 WBC (Bld) 7.1 % Normal [facility] Comment on above: Order Comment: Speci men Type: BLOOD SPECIMENOrdering Facility: [facility] Address: [address] [place] [address] Performed By: #### 5 7021-8 ####[facility] LABORATORYCLIA [id number] [place] [address] [place] Neutrophils (Bld) [#/Vol] 5.17 10*3/uL Normal 1.45-7.50 [facility] Comment on above: Order Comment: Speci men Type: BLOOD SPECIMENOrdering Facility: [facility] Address: [address] [place] [address] Performed By: #### 5 7021-8 ####[facility] LABORATORYCLIA [id number] [place] [id number] [place] Neutrophils/100 WBC (Bld) 64.6 % Normal [facility] Comment on above: Order Comment: Speci men Type: BLOOD SPECIMENOrdering Facility: [facility] Address: [address] [place] [address] Performed By: #### 5 7021-8 ####[facility] LABORATORYCLIA [id number] [place] [address] [place] Nucleated RBC (Bld) [#/Vol] 10*3/uL Normal <0.01 [facility] Comment on above: Order Comment: Speci men Type: BLOOD SPECIMENOrdering Facility: [facility] Address: [address] [place] [address] Performed By: #### 5 7021-8 ####[facility] LABORATORYCLIA [id number] [place] [address] [place] Nucleated RBC/100 WBC (Bld) [Ratio] 0.0 /100 WBC Normal [facility] Comment on above: Order Comment: Speci men Type: BLOOD SPECIMENOrdering Facility: [facility] Address: [address] [place] [address] Performed By: #### 5 7021-8 ####[facility] LABORATORYCLIA [id number] [place] [address] [place] Platelet mean volume (Bld) [Entitic vol] 9.5 fL Normal 9.0-12.7 [facility] Comment on above: Order Comment: Speci men Type: BLOOD SPECIMENOrdering Facility: [facility] Address: [address] [place] [address] Performed By: #### 5 7021-8 ####[facility] LABORATORYCLIA [id number] [place] [address] [place] Platelets (Bld) [#/Vol] 298 10*3/uL Normal 150-400 [facility] Comment on above: Order Comment: Speci men Type: BLOOD SPECIMENOrdering Facility: [facility] Address: [address] [place] [address] Performed By: #### 5 7021-8 ####[facility] LABORATORYCLIA [id number] [place] [id number] [place] RBC (Bld) [#/Vol] 4.84 10*6/uL Normal 4.20-6.00 [facility] Comment on above: Order Comment: Speci men Type: BLOOD SPECIMENOrdering Facility: [facility] Address: [address] [place] [address] [place] [address] Performed By: #### 5 7021-8 ####[facility] LABORATORYCLIA [id number] [place] [id number] [place] WBC (Bld) [#/Vol] 8.01 10*3/uL Normal 3.70-11.00 [facility] Comment on above: Order Comment: Speci men Type: BLOOD SPECIMENOrdering Facility: [facility] Address: [address] [place] [phone] Performed By: #### 5 7021-8 ####[facility] LABORATORYCLIA [id number] [place] [id number] [place] CONSULT PROGon 01-01-2025 CONSULT PROG Normal [facility] CONSULT PROG Normal [facility] CONSULT PRO Normal [facility] Magnesium SerPl-mCncon 01-01 Magnesium [Mass/Vol] 2.0 mg/dL Normal 1.7-2.3 [facility] Comment on above: Order Comment: Speci men Type: BLOOD SPECIMENOrdering Facility: [facility] Address: [address] [place] [id number] Performed By: #### 2 4321-2, 2777-1, 34066-0, 57605-6 ####[facility] LABORATORYCLIA [id number] [place] [id number] [place] NURSING PROGon 01-01-2025 NURSING PROG Normal [facility] Phosphate SerPl-mCncon 01-01 Phosphate [Mass/Vol] 3.1 mg/dL Normal 2.7-4.8 [facility] Comment on above: Order Comment: Speci men Type: BLOOD SPECIMENOrdering Facility: [facility] Address: [address] [place] [phone] Performed By: #### 2 4321-2, 2777-1, 93634-3, 77434-5 ####[facility] LABORATORYCLIA [id number] [place] [id number] [place] Procalcitonin SerPl-mCncon 0 01-01-2025 Procalcitonin [Mass/Vol] 0.15 ng/mL High <0.09 [facility] Comment on above: Order Comment: Speci men Type: BLOOD SPECIMENOrdering Facility: [facility] Address: [address] [place] [address] Result Comment: For a guided interpretation of test results, please visit the Change in Procalcitonin Calculator, [email or web address]. Performed By: #### 2 4321-2, 2776-1, 50751-0, ####[facility] LABORATORYCLIA [id number] [place] [id number] [place] US CHEST EFFUSION SURVEYon 0 01-01-2025 US CHEST EFFUSION SURVEY Normal [facility] XR CHEST 1V FRONTALon 2024 XR CHEST 1V FRONTAL Normal [facility] Basic metabolic 2000 panelon 12-31-2024 Anion gap [Moles/Vol] 11 mmol/L Normal 8-15 [facility] Comment on above: Order Comment: Speci men Type: BLOOD SPECIMENOrdering Facility: [facility] Address: [address] [place] [address] Performed By: #### 2 4321-2, , 2776-04 ####[facility] LABORATORYCLIA [id number] [place] [id number] [place] Calcium [Mass/Vol] 9.1 mg/dL Normal 8.5-10.2 [facility] Comment on above: Order Comment: Speci men Type: BLOOD SPECIMENOrdering Facility: [facility] Address: [address] [place] [address] Performed By: #### 2 4321-2, , 2776-04 ####[facility] LABORATORYCLIA [id number] [place] [id number] [place] Chloride [Moles/Vol] 99 mmol/L Normal 98-107 [facility] Comment on above: Order Comment: Speci men Type: BLOOD SPECIMENOrdering Facility: [facility] Address: [address] [place] [address] Performed By: #### 2 4321-2, , 2776-04 ####[facility]ORATORYCLIA [id number] [place] [id number] [place] CO2 [Moles/Vol] 28 mmol/L Normal 22-30 [facility] Comment on above: Order Comment: Speci cliff Type: BLOOD SPECIMENOrdering Facility: [facility] Address: [address] [place] [address] Performed By: #### 2 4321-2, , 2776-04 ####[facility]ORATORYCLIA [id number] [place] [id number] [place] Creatinine [Mass/Vol] 0.94 mg/dL Normal 0.73-1.22 [facility] Comment on above: Order Comment: Speci men Type: BLOOD SPECIMENOrdering Facility: [facility] Address: [address] [place] [address] Performed By: #### 2 4321-2, , 2776-04 ####[facility] LABORATORYCLIA [id number] [place] [address] [place] eGFRcr SerPlBld CKD-EPI 2020 91 mL/min/1.73m??? Normal >=60 [facility] Comment on above: Order Comment: Speci cliff Type: BLOOD SPECIMENOrdering Facility: [facility] Address: [address] [place] [address] Result Comment: Matilda mated Glomerular Filtration Rate (eGFR) is calculated using the 2020 CKD-EPI creatinine equation. This equation utilizes serum creatinine, sex, and age as parameters. The creatinine assay has traceable calibration to isotope dilution-mass spectrometry. Refer to KDIGO guidelines for clinical interpretation. In patients with unstable renal function, e.g. those with acute kidney injury, the eGFR may not accurately reflect actual GFR. Performed By: #### 2 4321-2, , 2776-04 ####[facility] LABORATORYCLIA [id number] [place] [id number] [place] Glucose [Mass/Vol] 196 mg/dL High 74-99 [facility] Comment on above: Order Comment: Speci men Type: BLOOD SPECIMENOrdering Facility: [facility] Address: [address] [place] [address] Result Comment: The [place] [employer] (ADA) provides guidance for cutoff values for fasting glucose and random glucose. The ADA defines fasting as no caloric intake for at least 8 hours. Fasting plasma glucose results between 100 to 125 mg/dL indicate increased risk for diabetes (prediabetes).Fasting plasma glucose results greater than or equal to 126 mg/dL meet the criteria for diagnosis of diabetes. In the absence of unequivocal hyperglycemia, results should be confirmed by repeat testing. In a patient with classic symptoms of hyperglycemia or hyperglycemic crisis, random plasma glucose results greater than or equal to 200 mg/dL meet the criteria for diagnosis of diabetes.Reference: Standards of Medical Care in Diabetes 2016, [place] [employer]. Diabetes Care. 2016.39(Suppl 1). Performed By: #### 2 4321-2, , 2776-04 ####[facility] LABORATORYCLIA [id number] [place] [id number] [place] Potassium [Moles/Vol] 4.2 mmol/L Normal 3.7-5.1 [facility] Comment on above: Order Comment: Speci men Type: BLOOD SPECIMENOrdering Facility: [facility] Address: [address] [place] [phone] Performed By: #### 2 4321-2, , 2776-04 ####[facility] LABORATORYCLIA [id number] [place] [id number] [place] Sodium [Moles/Vol] 138 mmol/L Normal 136-144 [facility] Comment on above: Order Comment: Speci men Type: BLOOD SPECIMENOrdering Facility: [facility] Address: [address] [place] [address] Performed By: #### 2 4321-2, , 2776-04 ####[facility] LABORATORYCLIA [id number] [place] [id number] [place] Urea nitrogen [Mass/Vol] 35 mg/dL High 9-24 [facility] Comment on above: Order Comment: Speci men Type: BLOOD SPECIMENOrdering Facility: [facility] Address: [address] [place] [phone] Performed By: #### 2 4321-2, 10238-8, 2777-1 ####[facility] LABORATORYCLIA [id number] [place] [id number] [place] CBC W Auto Differential pane l (Bld)on 12-31-2024 Basophils (Bld) [#/Vol] 0.04 10*3/uL Normal <0.11 [facility] Comment on above: Order Comment: Speci men Type: BLOOD SPECIMENOrdering Facility: [facility] Address: [address] [place] [address] Performed By: #### 5 7021-8 ####[facility] LABORATORYCLIA [id number] [place] [id number] [place] Basophils/100 WBC (Bld) 0.4 % Normal [facility] Comment on above: Order Comment: Speci men Type: BLOOD SPECIMENOrdering Facility: [facility] Address: [address] [place] [address] Performed By: #### 5 7021-8 ####[facility] LABORATORYCLIA [id number] [place] [address] [place] Differential cell count method Nom (Bld) Auto Normal [facility] Comment on above: Order Comment: Speci men Type: BLOOD SPECIMENOrdering Facility: [facility] Address: [address] [place] [address] Performed By: #### 5 7021-8 ####[facility] LABORATORYCLIA [id number] [place] [id number] [place] Eosinophils (Bld) [#/Vol] 0.36 10*3/uL Normal <0.46 [facility] Comment on above: Order Comment: Speci men Type: BLOOD SPECIMENOrdering Facility: [facility] Address: [address] [place] [address] Performed By: #### 5 7021-8 ####[facility] LABORATORYCLIA [id number] [place] [id number] [place] Eosinophils/100 WBC (Bld) 3.9 % Normal [facility] Comment on above: Order Comment: Speci men Type: BLOOD SPECIMENOrdering Facility: [facility] Address: [address] [place] [address] Performed By: #### 5 7021-8 ####[facility] LABORATORYCLIA [id number] [place] [id number] [place] Erythrocyte distribution width (RBC) [Ratio] 17.3 % High 11.5-15.0 [facility] Comment on above: Order Comment: Speci men Type: BLOOD SPECIMENOrdering Facility: [facility] Address: [address] [place] [address] Performed By: #### 5 7021-8 ####[facility] LABORATORYCLIA [id number] [place] [address] [place] Hematocrit (Bld) [Volume fraction] 43.8 % Normal 39.0-51.0 [facility] Comment on above: Order Comment: Speci men Type: BLOOD SPECIMENOrdering Facility: [facility] Address: [address] [place] [address] Performed By: #### 5 7021-8 ####[facility] LABORATORYCLIA [id number] [place] [address] [place] Hemoglobin (Bld) [Mass/Vol] 14.1 g/dL Normal 13.0-17.0 [facility] Comment on above: Order Comment: Speci men Type: BLOOD SPECIMENOrdering Facility: [facility] Address: [address] [place] [address] Performed By: #### 5 7021-8 ####[facility] LABORATORYCLIA [id number] [place] [id number] [place] Immature granulocytes (Bld) [#/Vol] 0.03 10*3/uL Normal <0.10 [facility] Comment on above: Order Comment: Speci men Type: BLOOD SPECIMENOrdering Facility: [facility] Address: [address] [place] [address] Performed By: #### 5 7021-8 ####[facility] LABORATORYCLIA [id number] [place] [address] [place] Immature granulocytes/100 WBC (Bld) 0.3 % Normal [facility] Comment on above: Order Comment: Speci men Type: BLOOD SPECIMENOrdering Facility: [facility] Address: [address] [place] [address] Performed By: #### 5 7021-8 ####[facility] LABORATORYCLIA [id number] [place] [address] [place] Lymphocytes (Bld) [#/Vol] 2.10 10*3/uL Normal 1.00-4.00 [facility] Comment on above: Order Comment: Speci men Type: BLOOD SPECIMENOrdering Facility: [facility] Address: [address] [place] [address] Performed By: #### 5 7021-8 ####[facility] LABORATORYCLIA [id number] [address] [place] Lymphocytes/100 WBC (Bld) 22.8 % Normal [facility] Comment on above: Order Comment: Speci men Type: BLOOD SPECIMENOrdering Facility: [facility] Address: [address] [place] [address] Performed By: #### 5 7021-8 ####[facility] LABORATORYCLIA [id number] [place] [address] [place] MCH (RBC) [Entitic mass] 28.6 pg Normal 26.0-34.0 [facility] Comment on above: Order Comment: Speci men Type: BLOOD SPECIMENOrdering Facility: [facility] Address: [address] [place] [address] Performed By: #### 5 7021-8 ####[facility] LABORATORYCLIA [id number] [place] [id number] [place] MCHC (RBC) [Mass/Vol] 32.2 g/dL Normal 30.5-36.0 [facility] Comment on above: Order Comment: Speci men Type: BLOOD SPECIMENOrdering Facility: [facility] Address: [address] [place] [address] Performed By: #### 5 7021-8 ####[facility] LABORATORYCLIA [id number] [place] [address] [place] MCV (RBC) [Entitic vol] 88.8 fL Normal 80.0-100.0 [facility] Comment on above: Order Comment: Speci men Type: BLOOD SPECIMENOrdering Facility: [facility] Address: [address] [place] [address] Performed By: #### 5 7021-8 ####[facility] LABORATORYCLIA [id number] [place] [id number] [place] Monocytes (Bld) [#/Vol] 0.94 10*3/uL High <0.87 [facility] Comment on above: Order Comment: Speci men Type: BLOOD SPECIMENOrdering Facility: [facility] Address: [address] [place] [address] Performed By: #### 5 7021-8 ####[facility] LABORATORYCLIA [id number] [place] [address] [place] Monocytes/100 WBC (Bld) 10.2 % Normal [facility] Comment on above: Order Comment: Speci men Type: BLOOD SPECIMENOrdering Facility: [facility] Address: [address] [place] [address] Performed By: #### 5 7021-8 ####RUBY LABORATORYCLIA [id number] [place] [address] [place] Neutrophils (Bld) [#/Vol] 5.73 10*3/uL Normal 1.45-7.50 [facility] Comment on above: Order Comment: Speci men Type: BLOOD SPECIMENOrdering Facility: [facility] Address: [address] [place] [address] Performed By: #### 5 7021-8 ####[facility] LABORATORYCLIA [id number] [place] [id number] [place] Neutrophils/100 WBC (Bld) 62.4 % Normal [facility] Comment on above: Order Comment: Speci men Type: BLOOD SPECIMENOrdering Facility: [facility] Address: [address] [place] [address] Performed By: #### 5 7021-8 ####RUBY LABORATORYCLIA [id number] [place] [address] [place] Nucleated RBC (Bld) [#/Vol] 10*3/uL Normal <0.01 [facility] Comment on above: Order Comment: Speci men Type: BLOOD SPECIMENOrdering Facility: [facility] Address: [address] [place] [address] Performed By: #### 5 7021-8 ####[facility] LABORATORYCLIA [id number] [place] [address] [place] Nucleated RBC/100 WBC (Bld) [Ratio] 0.0 /100 WBC Normal [facility] Comment on above: Order Comment: Speci men Type: BLOOD SPECIMENOrdering Facility: [facility] Address: [address] [place] [address] Performed By: #### 5 7021-8 ####[facility] LABORATORYCLIA [id number] [place] [address] [place] Platelet mean volume (Bld) [Entitic vol] 9.8 fL Normal 9.0-12.7 [facility] Comment on above: Order Comment: Speci men Type: BLOOD SPECIMENOrdering Facility: [facility] Address: [address] [place] [address] Performed By: #### 5 7021-8 ####[facility] LABORATORYCLIA [id number] [place] [address] [place] Platelets (Bld) [#/Vol] 304 10*3/uL Normal 150-400 [facility] Comment on above: Order Comment: Speci men Type: BLOOD SPECIMENOrdering Facility: [facility] Address: [address] [place] [address] Performed By: #### 5 7021-8 ####[facility] LABORATORYCLIA [id number] [place] [id number] [place] RBC (Bld) [#/Vol] 4.93 10*6/uL Normal 4.20-6.00 [facility] Comment on above: Order Comment: Speci men Type: BLOOD SPECIMENOrdering Facility: [facility] Address: [address] [place] [address] Performed By: #### 5 7021-8 ####[facility] LABORATORYCLIA [id number] [place] [id number] [place] WBC (Bld) [#/Vol] 9.20 10*3/uL Normal 3.70-11.00 [facility] Comment on above: Order Comment: Speci men Type: BLOOD SPECIMENOrdering Facility: [facility] Address: [facility] [place] [id number] Performed By: #### 5 7021-8 ####[facility] LABORATORYCLIA [id number] [place] [id number] [place] CONSULT PROGon 12-31-2024 CONSULT PROG Normal [facility] CONSULT PROG Normal [facility] Magnesium SerPl-mCncon 12-31 Magnesium [Mass/Vol] 2.1 mg/dL Normal 1.7-2.3 [facility] Comment on above: Order Comment: Speci men Type: BLOOD SPECIMENOrdering Facility: [facility] Address: [address] [place], [place] [address] [id number] Performed By: #### 2 4321-2, 06971-7, 2777-1 ####[facility] LABORATORYCLIA [id number] [place] [id number] [place] Phosphate SerPl-mCncon 12-31 Phosphate [Mass/Vol] 2.8 mg/dL Normal 2.7-4.8 [facility] Comment on above: Order Comment: Speci men Type: BLOOD SPECIMENOrdering Facility: [facility] Address: [facility] [place] [id number] Performed By: #### 2 4321-2, 60569-3, 2777-1 ####[facility] LABORATORYCLIA [id number] [place] [id number] [place] ALLIED HEALTHon 12-30-2024 ALLIED HEALTH Normal [facility] Basic metabolic 2000 panelon 12-30-2024 Anion gap [Moles/Vol] 14 mmol/L Normal 8-15 [facility] Comment on above: Order Comment: Speci men Type: BLOOD SPECIMENOrdering Facility: [facility] Address: [address] [place] [address] Performed By: #### 2 4321-2, ####[facility] LABORATORYCLIA [id number] [place] [id number] [place] Calcium [Mass/Vol] 9.0 mg/dL Normal 8.5-10.2 [facility] Comment on above: Order Comment: Speci men Type: BLOOD SPECIMENOrdering Facility: [facility] Address: [address] [place] [address] Performed By: #### 2 4320-2, ####RUBY LABORATORYCLIA [id number] [place] [id number] [place] Chloride [Moles/Vol] 96 mmol/L Low 98-107 [facility] Comment on above: Order Comment: Speci men Type: BLOOD SPECIMENOrdering Facility: [facility] Address: [address] [place] [address] Performed By: #### 2 4320-05, ####RUBY LABORATORYCLIA [id number] [place] [id number] [place] CO2 [Moles/Vol] 30 mmol/L Normal 22-30 [facility] Comment on above: Order Comment: Speci men Type: BLOOD SPECIMENOrdering Facility: [facility] Address: [address] [place] [address] Performed By: #### 2 4320-2, ####RU[facility] LABORATORYCLIA [id number] [place] [id number] [place] Creatinine [Mass/Vol] 1.01 mg/dL Normal 0.73-1.22 [facility] Comment on above: Order Comment: Speci men Type: BLOOD SPECIMENOrdering Facility: [facility] Address: [address] [place] [address] Performed By: #### 2 432-2, ####RU[facility] LABORATORYCLIA [id number] [place] [id number] [place] eGFRcr SerPlBld CKD-EPI 2021 83 mL/min/1.73m??? Normal >=60 [facility] Comment on above: Order Comment: Concetta coronado Type: BLOOD SPECIMENOrdering Facility: [facility] Address: [address] [place] [address] Result Comment: Matilda mated Glomerular Filtration Rate (eGFR) is calculated using the 2020 CKD-EPI creatinine equation. This equation utilizes serum creatinine, sex, and age as parameters. The creatinine assay has traceable calibration to isotope dilution-mass spectrometry. Refer to KDIGO guidelines for clinical interpretation. In patients with unstable renal function, e.g. those with acute kidney injury, the eGFR may not accurately reflect actual GFR. Performed By: #### 2 4321-2, ####[facility] LABORATORYCLIA [id number] [place] [address] [place] Glucose [Mass/Vol] 257 mg/dL High 74-99 [facility] Comment on above: Order Comment: Concetta coronado Type: BLOOD SPECIMENOrdering Facility: [facility] Address: [address] [place] [address] Result Comment: The [place] [employer] (ADA) provides guidance for cutoff values for fasting glucose and random glucose. The ADA defines fasting as no caloric intake for at least 8 hours. Fasting plasma glucose results between 100 to 125 mg/dL indicate increased risk for diabetes (prediabetes).Fasting plasma glucose results greater than or equal to 126 mg/dL meet the criteria for diagnosis of diabetes. In the absence of unequivocal hyperglycemia, results should be confirmed by repeat testing. In a patient with classic symptoms of hyperglycemia or hyperglycemic crisis, random plasma glucose results greater than or equal to 200 mg/dL meet the criteria for diagnosis of diabetes.Reference: Standards of Medical Care in Diabetes 2016, [place] [employer]. Diabetes Care. 2016.39(Suppl 1). Performed By: #### 2 4321-2, ####[facility] LABORATORYCLIA [id number] [place] [id number] [place] Potassium [Moles/Vol] 4.7 mmol/L Normal 3.7-5.1 [facility] Comment on above: Order Comment: Concetta coronado Type: BLOOD SPECIMENOrdering Facility: [facility] Address: [address] [place] [id number] Performed By: #### 2 4321-2, ####RUBY LABORATORYCLIA [id number] [place] [address] [place] Sodium [Moles/Vol] 140 mmol/L Normal 136-144 [facility] Comment on above: Order Comment: Speci men Type: BLOOD SPECIMENOrdering Facility: [facility] Address: [address] [place] [address] Performed By: #### 2 4321-2, ####RU[facility] LABORATORYCLIA [id number] [place] [id number] [place] Urea nitrogen [Mass/Vol] 28 mg/dL High 9-24 [facility] Comment on above: Order Comment: Speci men Type: BLOOD SPECIMENOrdering Facility: [facility] Address: [address] [place] [address] Performed By: #### 2 2, ####[facility] LABORATORYCLIA [id number] [place] [id number] [place] Anion gap [Moles/Vol] 12 mmol/L Normal 8-15 [facility] Comment on above: Order Comment: Speci men Type: BLOOD SPECIMENOrdering Facility: [facility] Address: [address] [place] [address] Performed By: #### 2 4321-2, , 2776-04 ####RU[facility] LABORATORYCLIA [id number] [place] [id number] [place] Calcium [Mass/Vol] 9.0 mg/dL Normal 8.5-10.2 [facility] Comment on above: Order Comment: Speci men Type: BLOOD SPECIMENOrdering Facility: [facility] Address: [address] [place] [address] Performed By: #### 2 4321-2, , 2776-04 ####RU[facility] LABORATORYCLIA [id number] [place] [id number] [place] Chloride [Moles/Vol] 96 mmol/L Low 98-107 [facility] Comment on above: Order Comment: Speci men Type: BLOOD SPECIMENOrdering Facility: [facility] Address: [address] [place], [place] [address] Performed By: #### 2 4321-2, , 2776-04 ####[facility] LABORATORYCLIA [id number] [place] [address] [place] CO2 [Moles/Vol] 31 mmol/L High 22-30 [facility] Comment on above: Order Comment: Speci men Type: BLOOD SPECIMENOrdering Facility: [facility] Address: [address] [place] [address] Performed By: #### 2 4321-2, , 2776-04 ####[facility] LABORATORYCLIA [id number] [place] [id number] [place] Creatinine [Mass/Vol] 0.84 mg/dL Normal 0.73-1.22 [facility] Comment on above: Order Comment: Speci men Type: BLOOD SPECIMENOrdering Facility: [facility] Address: [address] [place] [address] Performed By: #### 2 4321-2, , 2776-04 ####[facility] LABORATORYCLIA [id number] [place] [id number] [place] eGFRcr SerPlBld CKD-EPI 2020 97 mL/min/1.73m??? Normal >=60 [facility] Comment on above: Order Comment: Speci men Type: BLOOD SPECIMENOrdering Facility: [facility] Address: [address] [place] [address] Result Comment: Matilda mated Glomerular Filtration Rate (eGFR) is calculated using the 2020 CKD-EPI creatinine equation. This equation utilizes serum creatinine, sex, and age as parameters. The creatinine assay has traceable calibration to isotope dilution-mass spectrometry. Refer to KDIGO guidelines for clinical interpretation. In patients with unstable renal function, e.g. those with acute kidney injury, the eGFR may not accurately reflect actual GFR. Performed By: #### 2 4321-2, 50717-627[address]-04 ####RUBY LABORATORYCLIA [id number] [place] [address] [place] Glucose [Mass/Vol] 108 mg/dL High 74-99 [facility] Comment on above: Order Comment: Speci men Type: BLOOD SPECIMENOrdering Facility: [facility] Address: [address] [place] [address] Result Comment: The [place] Diabetes [employer] (ADA) provides guidance for cutoff values for fasting glucose and random glucose. The ADA defines fasting as no caloric intake for at least 8 hours. Fasting plasma glucose results between 100 to 125 mg/dL indicate increased risk for diabetes (prediabetes).Fasting plasma glucose results greater than or equal to 126 mg/dL meet the criteria for diagnosis of diabetes. In the absence of unequivocal hyperglycemia, results should be confirmed by repeat testing. In a patient with classic symptoms of hyperglycemia or hyperglycemic crisis, random plasma glucose results greater than or equal to 200 mg/dL meet the criteria for diagnosis of diabetes.Reference: Standards of Medical Care in Diabetes 2016, [place] [employer]. Diabetes Care. 2016.39(Suppl 1). Performed By: #### 2 4321-2, , 2776-04 ####RU[facility] LABORATORYCLIA [id number] [place] [id number] [place] Potassium [Moles/Vol] 3.4 mmol/L Low 3.7-5.1 [facility] Comment on above: Order Comment: Speci men Type: BLOOD SPECIMENOrdering Facility: [facility] Address: [address] [place] [address] Performed By: #### 2 4321-2, , 2776-04 ####[facility] LABORATORYCLIA [id number] [place] [id number] [place] Sodium [Moles/Vol] 139 mmol/L Normal 136-144 [facility] Comment on above: Order Comment: Speci men Type: BLOOD SPECIMENOrdering Facility: [facility] Address: [address] [place] [address] Performed By: #### 2 4321-2, , 2776-04 ####RU[facility] LABORATORYCLIA [id number] [place] [address] [place] Urea nitrogen [Mass/Vol] 29 mg/dL High 12-28 [facility] Comment on above: Order Comment: Speci men Type: BLOOD SPECIMENOrdering Facility: [facility] Address: [address] [place] [address] Performed By: #### 2 4321-2, 43867-3, 2777-1 ####[facility] LABORATORYCLIA [id number] [place] [address] [place] CBC W Auto Differential pane l (Bld)on 12-30-2024 Basophils (Bld) [#/Vol] 0.04 10*3/uL Normal <0.11 [facility] Comment on above: Order Comment: Speci men Type: BLOOD SPECIMENOrdering Facility: [facility] Address: [address] [place] [address] Performed By: #### 5 7021-8 ####[facility] LABORATORYCLIA [id number] [place] [address] [place] Basophils/100 WBC (Bld) 0.5 % Normal [facility] Comment on above: Order Comment: Speci men Type: BLOOD SPECIMENOrdering Facility: [facility] Address: [address] [place] [address] Performed By: #### 5 7021-8 ####[facility] LABORATORYCLIA [id number] [address] [place] Differential cell count method Nom (Bld) Auto Normal [facility] Comment on above: Order Comment: Speci men Type: BLOOD SPECIMENOrdering Facility: [facility] Address: [address] [place] [address] Performed By: #### 5 7021-8 ####[facility] LABORATORYCLIA [id number] [place] [id number] [place] Eosinophils (Bld) [#/Vol] 0.67 10*3/uL High <0.46 [facility] Comment on above: Order Comment: Speci men Type: BLOOD SPECIMENOrdering Facility: [facility] Address: [address] [place], [place] [address] Performed By: #### 5 7021-8 ####[facility] LABORATORYCLIA [id number] [place] [id number] [place] Eosinophils/100 WBC (Bld) 7.7 % Normal [facility] Comment on above: Order Comment: Speci men Type: BLOOD SPECIMENOrdering Facility: [facility] Address: [address] [place] [address] Performed By: #### 5 7021-8 ####[facility] LABORATORYCLIA [id number] [place] [address] [place] Erythrocyte distribution width (RBC) [Ratio] 17.2 % High 11.5-15.0 [facility] Comment on above: Order Comment: Speci men Type: BLOOD SPECIMENOrdering Facility: [facility] Address: [address] [place] [address] Performed By: #### 5 7021-8 ####[facility] LABORATORYCLIA [id number] [place] [address] [place] Hematocrit (Bld) [Volume fraction] 42.5 % Normal 39.0-51.0 [facility] Comment on above: Order Comment: Speci men Type: BLOOD SPECIMENOrdering Facility: [facility] Address: [address] [place] [address] Performed By: #### 5 7021-8 ####[facility] LABORATORYCLIA [id number] [place] [id number] [place] Hemoglobin (Bld) [Mass/Vol] 13.6 g/dL Normal 13.0-17.0 [facility] Comment on above: Order Comment: Speci men Type: BLOOD SPECIMENOrdering Facility: [facility] Address: [address] [place] [address] Performed By: #### 5 7021-8 ####[facility] LABORATORYCLIA [id number] [address] [place] Immature granulocytes (Bld) [#/Vol] 0.03 10*3/uL Normal <0.10 [facility] Comment on above: Order Comment: Speci men Type: BLOOD SPECIMENOrdering Facility: [facility] Address: [address] [place] [address] Performed By: #### 5 7021-8 ####[facility] LABORATORYCLIA [id number] [place] [id number] [facility] Immature granulocytes/100 WBC (Bld) 0.3 % Normal [facility] Comment on above: Order Comment: Speci men Type: BLOOD SPECIMENOrdering Facility: [facility] Address: [address] [place] [address] Performed By: #### 5 7021-8 ####[facility] LABORATORYCLIA [id number] [place] [address] [place] Lymphocytes (Bld) [#/Vol] 1.74 10*3/uL Normal 1.00-4.00 [facility] Comment on above: Order Comment: Speci men Type: BLOOD SPECIMENOrdering Facility: [facility] Address: [address] [place] [address] Performed By: #### 5 7021-8 ####[facility] LABORATORYCLIA [id number] [address] Lymphocytes/100 WBC (Bld) 20.0 % Normal [facility] Comment on above: Order Comment: Speci men Type: BLOOD SPECIMENOrdering Facility: [facility] Address: [address] [place] [address] Performed By: #### 5 7021-8 ####[facility] LABORATORYCLIA [id number] [place] [id number] [place] MCH (RBC) [Entitic mass] 28.3 pg Normal 26.0-34.0 [facility] Comment on above: Order Comment: Speci men Type: BLOOD SPECIMENOrdering Facility: [facility] Address: [address] [place] [address] Performed By: #### 5 7021-8 ####[facility] LABORATORYCLIA [id number] [place] [address] [place] MCHC (RBC) [Mass/Vol] 32.0 g/dL Normal 30.5-36.0 [facility] Comment on above: Order Comment: Speci men Type: BLOOD SPECIMENOrdering Facility: [facility] Address: [address] [place] [address] Performed By: #### 5 7021-8 ####[facility] LABORATORYCLIA [id number] [place] [id number] [place] MCV (RBC) [Entitic vol] 88.4 fL Normal 80.0-100.0 [facility] Comment on above: Order Comment: Speci men Type: BLOOD SPECIMENOrdering Facility: [facility] Address: [address] [place] [address] Performed By: #### 5 7021-8 ####[facility] LABORATORYCLIA [id number] [place] [id number] [place] Monocytes (Bld) [#/Vol] 0.89 10*3/uL High <0.87 [facility] Comment on above: Order Comment: Speci men Type: BLOOD SPECIMENOrdering Facility: [facility] Address: [address] [place] [address] Performed By: #### 5 7021-8 ####[facility] LABORATORYCLIA [id number] [place] [address] [place] Monocytes/100 WBC (Bld) 10.2 % Normal [facility] Comment on above: Order Comment: Speci men Type: BLOOD SPECIMENOrdering Facility: [facility] Address: [address] [place] [address] Performed By: #### 5 7021-8 ####[facility] LABORATORYCLIA [id number] [place] [id number] [place] Neutrophils (Bld) [#/Vol] 5.34 10*3/uL Normal 1.45-7.50 [facility] Comment on above: Order Comment: Speci men Type: BLOOD SPECIMENOrdering Facility: [facility] Address: [address] [place] [address] Performed By: #### 5 7021-8 ####[facility] LABORATORYCLIA [id number] [place] [id number] [place] Neutrophils/100 WBC (Bld) 61.3 % Normal [facility] Comment on above: Order Comment: Speci men Type: BLOOD SPECIMENOrdering Facility: [facility] Address: [address] [place] [address] Performed By: #### 5 7021-8 ####[facility] LABORATORYCLIA [id number] [place] [address] [place] Nucleated RBC (Bld) [#/Vol] 10*3/uL Normal <0.01 [facility] Comment on above: Order Comment: Speci men Type: BLOOD SPECIMENOrdering Facility: [facility] Address: [address] [place] [address] Performed By: #### 5 7021-8 ####[facility] LABORATORYCLIA [id number] [place] [address] [place] Nucleated RBC/100 WBC (Bld) [Ratio] 0.0 /100 WBC Normal [facility] Comment on above: Order Comment: Speci men Type: BLOOD SPECIMENOrdering Facility: [facility] Address: [address] [place] [address] Performed By: #### 5 7021-8 ####[facility] LABORATORYCLIA [id number] [place] [address] [place] Platelet mean volume (Bld) [Entitic vol] 9.9 fL Normal 9.0-12.7 [facility] Comment on above: Order Comment: Speci men Type: BLOOD SPECIMENOrdering Facility: [facility] Address: [address] [place] [address] Performed By: #### 5 7021-8 ####[facility] LABORATORYCLIA [id number] [place] [id number] [place] Platelets (Bld) [#/Vol] 278 10*3/uL Normal 150-400 [facility] Comment on above: Order Comment: Speci men Type: BLOOD SPECIMENOrdering Facility: [facility] Address: [address] [place] [address] Performed By: #### 5 7021-8 ####[facility] LABORATORYCLIA [id number] [place] [address] [place] RBC (Bld) [#/Vol] 4.81 10*6/uL Normal 4.20-6.00 [facility] Comment on above: Order Comment: Speci men Type: BLOOD SPECIMENOrdering Facility: [facility] Address: [address] [place] [address] Performed By: #### 5 7021-8 ####[facility] LABORATORYCLIA [id number] [place] [id number] [place] OF THEO WBC (Bld) [#/Vol] 8.71 10*3/uL Normal 3.70-11.00 [facility] Comment on above: Order Comment: Speci men Type: BLOOD SPECIMENOrdering Facility: [facility] Address: [address] [place] [address] Performed By: #### 5 7021-8 ####[facility] LABORATORYCLIA [id number] [place] [id number] [facility] OF THEO CONSULT PROGon 12-30-2024 CONSULT PROG Normal [facility] CONSULT PROG Normal [facility] Magnesium SerPl-mCncon 12-30 Magnesium [Mass/Vol] 2.1 mg/dL Normal 1.7-2.3 [facility] Comment on above: Order Comment: Speci men Type: BLOOD SPECIMENOrdering Facility: [facility] Address: [address] [place] [address] Performed By: #### 2 4321-2, ####[facility] LABORATORYCLIA [id number] [place] [id number] [place] Magnesium [Mass/Vol] 2.1 mg/dL Normal 1.7-2.3 [facility] Comment on above: Order Comment: Speci men Type: BLOOD SPECIMENOrdering Facility: [facility] Address: [address] [place] [address] Performed By: #### 2 4321-2, 55172-7, 2777-1 ####[facility] LABORATORYCLIA [id number] [place] [id number] [place] NUTRITIONon 12-30-2024 NUTRITION Normal [facility] Phosphate SerPl-mCncon 12-30 Phosphate [Mass/Vol] 2.9 mg/dL Normal 2.7-4.8 [facility] Comment on above: Order Comment: Speci men Type: BLOOD SPECIMENOrdering Facility: [facility] Address: [address] [place] [address] Performed By: #### 2 4321-2, , 2776-04 ####[facility] LABORATORYCLIA [id number] [place] [id number] [place] Wound Cultureon 12-30-2024 WC Normal [facility] Comment on above: Performed By: #### M 100.3000, M100.4001, M100.1999 ####[facility] [address] [place], [address] XR CHEST 1V FRONTAL PORTon 0 12-30-2024 XR CHEST 1V FRONTAL PORT Normal [facility] Basic metabolic 2000 panelon 12-29-2024 Anion gap [Moles/Vol] 14 mmol/L Normal 8-15 [facility] Comment on above: Order Comment: Speci men Type: BLOOD SPECIMENOrdering Facility: [facility] Address: [facility] [place] [address] Performed By: #### 2 4321-2, , 2776-04 ####[facility] LABORATORYCLIA [id number] [place] [id number] [place] Calcium [Mass/Vol] 9.0 mg/dL Normal 8.5-10.2 [facility] Comment on above: Order Comment: Speci men Type: BLOOD SPECIMENOrdering Facility: [facility] Address: [address] [place] [address] Performed By: #### 2 4321-2, , 2776-04 ####[facility] LABORATORYCLIA [id number] [place] [address] [place] Chloride [Moles/Vol] 98 mmol/L Normal 98-107 [facility] Comment on above: Order Comment: Speci men Type: BLOOD SPECIMENOrdering Facility: [facility] Address: [address] [place], [place] [address] Performed By: #### 2 4321-2, , 2776-04 ####[facility] LABORATORYCLIA [id number] [place] [id number] [place] CO2 [Moles/Vol] 26 mmol/L Normal 22-30 [facility] Comment on above: Order Comment: Speci men Type: BLOOD SPECIMENOrdering Facility: [facility] Address: [address] [place] [address] Performed By: #### 2 4321-2, , 2776-04 ####[facility] LABORATORYCLIA [id number] [place] [id number] [place] Creatinine [Mass/Vol] 1.03 mg/dL Normal 0.73-1.22 [facility] Comment on above: Order Comment: Speci men Type: BLOOD SPECIMENOrdering Facility: [facility] Address: [address] [place] [address] Performed By: #### 2 4321-2, , 2776-04 ####[facility] LABORATORYCLIA [id number] [place] [id number] [place] eGFRcr SerPlBld CKD-EPI 2020 81 mL/min/1.73m??? Normal >=60 [facility] Comment on above: Order Comment: Speci men Type: BLOOD SPECIMENOrdering Facility: [facility] Address: [address] [place] [address] Result Comment: Matilda mated Glomerular Filtration Rate (eGFR) is calculated using the 2020 CKD-EPI creatinine equation. This equation utilizes serum creatinine, sex, and age as parameters. The creatinine assay has traceable calibration to isotope dilution-mass spectrometry. Refer to KDIGO guidelines for clinical interpretation. In patients with unstable renal function, e.g. those with acute kidney injury, the eGFR may not accurately reflect actual GFR. Performed By: #### 2 4321-2, , 2776-04 ####[facility] LABORATORYCLIA [id number] [place] [id number] [place] Glucose [Mass/Vol] 112 mg/dL High 74-99 [facility] Comment on above: Order Comment: Speci men Type: BLOOD SPECIMENOrdering Facility: [facility] Address: [address] [place] [id number] Result Comment: The [place] Diabetes [employer] (ADA) provides guidance for cutoff values for fasting glucose and random glucose. The ADA defines fasting as no caloric intake for at least 8 hours. Fasting plasma glucose results between 100 to 125 mg/dL indicate increased risk for diabetes (prediabetes).Fasting plasma glucose results greater than or equal to 126 mg/dL meet the criteria for diagnosis of diabetes. In the absence of unequivocal hyperglycemia, results should be confirmed by repeat testing. In a patient with classic symptoms of hyperglycemia or hyperglycemic crisis, random plasma glucose results greater than or equal to 200 mg/dL meet the criteria for diagnosis of diabetes.Reference: Standards of Medical Care in Diabetes 2016, [place] [employer]. Diabetes Care. 2016.39(Suppl 1). Performed By: #### 2 4321-2, , 2776-04 ####[facility] LABORATORYCLIA [id number] [place] [id number] [place] Potassium [Moles/Vol] 3.5 mmol/L Low 3.7-5.1 [facility] Comment on above: Order Comment: Concetta coronado Type: BLOOD SPECIMENOrdering Facility: [facility] Address: [address] [place] [address] Performed By: #### 2 4321-2, , 2776-04 ####[facility] LABORATORYCLIA [id number] [place] [id number] [place] Sodium [Moles/Vol] 138 mmol/L Normal 136-144 [facility] Comment on above: Order Comment: Yadii men Type: BLOOD SPECIMENOrdering Facility: [facility] Address: [address] [place] [address] Performed By: #### 2 4321-2, , 2776-04 ####[facility] LABORATORYCLIA [id number] [place] [address] [place] Urea nitrogen [Mass/Vol] 30 mg/dL High 9-24 [facility] Comment on above: Order Comment: Speci men Type: BLOOD SPECIMENOrdering Facility: [facility] Address: [address] [place] [address] Performed By: #### 2 4321-2, 76381-3, 2777-1 ####[facility] LABORATORYCLIA [id number] [place] [address] [place] CASE MANAGEMon 12-29-2024 CASE MANAGEM Normal [facility] CBC W Auto Differential pane l (Bld)on 12-29-2024 Basophils (Bld) [#/Vol] 0.03 10*3/uL Normal <0.11 [facility] Comment on above: Order Comment: Speci men Type: BLOOD SPECIMENOrdering Facility: [facility] Address: [address] [place] [address] Performed By: #### 5 7021-8 ####[facility] LABORATORYCLIA [id number] [place] [address] [place] Basophils/100 WBC (Bld) 0.4 % Normal [facility] Comment on above: Order Comment: Speci men Type: BLOOD SPECIMENOrdering Facility: [facility] Address: [address] [place] [address] Performed By: #### 5 7021-8 ####[facility] LABORATORYCLIA [id number] [place] [address] [place] Differential cell count method Nom (Bld) Auto Normal [facility] Comment on above: Order Comment: Speci men Type: BLOOD SPECIMENOrdering Facility: [facility] Address: [address] [place] [address] Performed By: #### 5 7021-8 ####[facility] LABORATORYCLIA [id number] [place] [id number] [place] Eosinophils (Bld) [#/Vol] 0.52 10*3/uL High <0.46 [facility] Comment on above: Order Comment: Speci men Type: BLOOD SPECIMENOrdering Facility: [facility] Address: [address] [place] [address] Performed By: #### 5 7021-8 ####[facility] LABORATORYCLIA [id number] [place] [address] [place] Eosinophils/100 WBC (Bld) 7.1 % Normal [facility] Comment on above: Order Comment: Speci men Type: BLOOD SPECIMENOrdering Facility: [facility] Address: [address] [place] [address] Performed By: #### 5 7021-8 ####[facility] LABORATORYCLIA [id number] [place] [address] [place] Erythrocyte distribution width (RBC) [Ratio] 17.0 % High 11.5-15.0 [facility] Comment on above: Order Comment: Speci men Type: BLOOD SPECIMENOrdering Facility: [facility] Address: [address] [place] [address] Performed By: #### 5 7021-8 ####[facility] LABORATORYCLIA [id number] [address] [place] Hematocrit (Bld) [Volume fraction] 41.4 % Normal 39.0-51.0 [facility] Comment on above: Order Comment: Speci men Type: BLOOD SPECIMENOrdering Facility: [facility] Address: [address] [place] [address] Performed By: #### 5 7021-8 ####[facility] LABORATORYCLIA [id number] [place] [address] [place] Hemoglobin (Bld) [Mass/Vol] 13.7 g/dL Normal 13.0-17.0 [facility] Comment on above: Order Comment: Speci men Type: BLOOD SPECIMENOrdering Facility: [facility] Address: [address] [place] [address] Performed By: #### 5 7021-8 ####[facility] LABORATORYCLIA [id number] [address] [place] Immature granulocytes (Bld) [#/Vol] 0.03 10*3/uL Normal <0.10 [facility] Comment on above: Order Comment: Speci men Type: BLOOD SPECIMENOrdering Facility: [facility] Address: [address] [place], [place] [address] Performed By: #### 5 7021-8 ####[facility] LABORATORYCLIA [id number] [place] [id number] [place] Immature granulocytes/100 WBC (Bld) 0.4 % Normal [facility] Comment on above: Order Comment: Speci men Type: BLOOD SPECIMENOrdering Facility: [facility] Address: [address] [place] [address] Performed By: #### 5 7021-8 ####[facility] LABORATORYCLIA [id number] [place] [address] [place] Lymphocytes (Bld) [#/Vol] 1.72 10*3/uL Normal 1.00-4.00 [facility] Comment on above: Order Comment: Speci men Type: BLOOD SPECIMENOrdering Facility: [facility] Address: [address] [place] [address] Performed By: #### 5 7021-8 ####[facility] LABORATORYCLIA [id number] [address] [place] Lymphocytes/100 WBC (Bld) 23.4 % Normal [facility] Comment on above: Order Comment: Speci men Type: BLOOD SPECIMENOrdering Facility: [facility] Address: [address] [place] [address] Performed By: #### 5 7021-8 ####[facility]ORATORYCLIA [id number] [place] [id number] [place] MCH (RBC) [Entitic mass] 29.1 pg Normal 26.0-34.0 [facility] Comment on above: Order Comment: Speci men Type: BLOOD SPECIMENOrdering Facility: [facility] Address: [address] [place] [address] Performed By: #### 5 7021-8 ####[facility] LABORATORYCLIA [id number] [address] [place] MCHC (RBC) [Mass/Vol] 33.1 g/dL Normal 30.5-36.0 [facility] Comment on above: Order Comment: Speci men Type: BLOOD SPECIMENOrdering Facility: [facility] Address: [address] [place] [address] Performed By: #### 5 7021-8 ####[facility] LABORATORYCLIA [id number] [place] [id number] [place] MCV (RBC) [Entitic vol] 88.1 fL Normal 80.0-100.0 [facility] Comment on above: Order Comment: Speci men Type: BLOOD SPECIMENOrdering Facility: [facility] Address: [address] [place] [address] Performed By: #### 5 7021-8 ####[facility] LABORATORYCLIA [id number] [place] [id number] [place] Monocytes (Bld) [#/Vol] 0.72 10*3/uL Normal <0.87 [facility] Comment on above: Order Comment: Speci men Type: BLOOD SPECIMENOrdering Facility: [facility] Address: [address] [place] [address] Performed By: #### 5 7021-8 ####[facility] LABORATORYCLIA [id number] [place] [address] [place] Monocytes/100 WBC (Bld) 9.8 % Normal [facility] Comment on above: Order Comment: Speci men Type: BLOOD SPECIMENOrdering Facility: [facility] Address: [address] [place] [address] Performed By: #### 5 7021-8 ####[facility] LABORATORYCLIA [id number] [place] [id number] [place] Neutrophils (Bld) [#/Vol] 4.33 10*3/uL Normal 1.45-7.50 [facility] Comment on above: Order Comment: Speci men Type: BLOOD SPECIMENOrdering Facility: [facility] Address: [address] [place] [address] Performed By: #### 5 7021-8 ####[facility]ORATORYCLIA [id number] [place] [id number] [place] Neutrophils/100 WBC (Bld) 58.9 % Normal [facility] Comment on above: Order Comment: Speci men Type: BLOOD SPECIMENOrdering Facility: [facility] Address: [address] [place] [address] Performed By: #### 5 7021-8 ####[facility] LABORATORYCLIA [id number] [place] [id number] [place] Nucleated RBC (Bld) [#/Vol] 10*3/uL Normal <0.01 [facility] Comment on above: Order Comment: Speci men Type: BLOOD SPECIMENOrdering Facility: [facility] Address: [address] [place] [address] Performed By: #### 5 7021-8 ####[facility] LABORATORYCLIA [id number] [place] [id number] [place] Nucleated RBC/100 WBC (Bld) [Ratio] 0.0 /100 WBC Normal [facility] Comment on above: Order Comment: Speci men Type: BLOOD SPECIMENOrdering Facility: [facility] Address: [address] [place] [address] Performed By: #### 5 7021-8 ####[facility] LABORATORYCLIA [id number] [place] [id number] [place] Platelet mean volume (Bld) [Entitic vol] 10.0 fL Normal 9.0-12.7 [facility] Comment on above: Order Comment: Speci men Type: BLOOD SPECIMENOrdering Facility: [facility] Address: [address] [place] [address] Performed By: #### 5 7021-8 ####[facility] LABORATORYCLIA [id number] [place] [id number] [place] Platelets (Bld) [#/Vol] 264 10*3/uL Normal 150-400 [facility] Comment on above: Order Comment: Speci men Type: BLOOD SPECIMENOrdering Facility: [facility] Address: [address] [place] [address] Performed By: #### 5 7021-8 ####[facility] LABORATORYCLIA [id number] [place] [id number] [place] RBC (Bld) [#/Vol] 4.70 10*6/uL Normal 4.20-6.00 [facility] Comment on above: Order Comment: Speci men Type: BLOOD SPECIMENOrdering Facility: [facility] Address: [address] [place] [address] Performed By: #### 5 7021-8 ####[facility] LABORATORYCLIA [id number] [place] [id number] [place] WBC (Bld) [#/Vol] 7.35 10*3/uL Normal 3.70-11.00 [facility] Comment on above: Order Comment: Speci men Type: BLOOD SPECIMENOrdering Facility: [facility] Address: [address] [place] [address] Performed By: #### 5 7021-8 ####[facility] LABORATORYCLIA [id number] [address] CONSULT PROGon 12-29-2024 CONSULT PROG Normal [facility] CONSULT PROG Normal [facility] Magnesium SerPl-mCncon 12-29 Magnesium [Mass/Vol] 2.2 mg/dL Normal 1.7-2.3 [facility] Comment on above: Order Comment: Speci men Type: BLOOD SPECIMENOrdering Facility: [facility] Address: [address] [place] [address] Performed By: #### 2 4321-2, 26011-1, 2777-1 ####[facility]ORATORYCLIA [id number] [place] [id number] [place] Phosphate SerPl-mCncon 12-29 Phosphate [Mass/Vol] 3.0 mg/dL Normal 2.7-4.8 [facility] Comment on above: Order Comment: Speci men Type: BLOOD SPECIMENOrdering Facility: [facility] Address: [address] [place] [address] Performed By: #### 2 4321-2, 54753-2, 2777-1 ####[facility]ORATORYCLIA [id number] [place] [id number] [facility] OF [place] THERAPY NTon 12-29-2024 THERAPY NT Normal [facility] TYPE + SCREENon 12-29-2024 ABO A Normal [facility] Comment on above: Order Comment: Speci men Type: BLOOD SPECIMENOrdering Facility: [facility] Address: [address] [place] [address] Performed By: #### T SCR ####[place] BLOOD BANKCLIA [id number] [place] [id number] [place] Rh Nom (Bld) Positive [facility] Comment on above: Order Comment: Speci men Type: BLOOD SPECIMENOrdering Facility: [facility] Address: [address] [place] [address] Performed By: #### T SCR ####[facility] [facility]LO[facility] BANKCLIA [id number] [place] [id number] [place] TYPE AND SCREEN EXPIRATION 01/01/2025 23:59 [facility] Comment on above: Order Comment: Speci men Type: BLOOD SPECIMENOrdering Facility: [facility] Address: [address] [place] [address] Performed By: #### T SCR ####[facility] [facility]LO[facility] BANKCLIA [id number] [place] [id number] [place] XR CHEST 1V FRONTAL PORTon 0 12-29-2024 XR CHEST 1V FRONTAL PORT Normal [facility] ALLIED HEALTHon 12-28-2024 ALLIED HEALTH [facility] Basic metabolic 2000 panelon 12-28-2024 Anion gap [Moles/Vol] 12 mmol/L Normal 8-15 [facility] Comment on above: Order Comment: Speci men Type: BLOOD SPECIMENOrdering Facility: [facility] Address: [address] [place] [address] Performed By: #### 2 4321-2, 16850-7, 2777-1 ####[facility] LABORATORYCLIA [id number] [place] [address] [place] Calcium [Mass/Vol] 8.8 mg/dL Normal 8.5-10.2 [facility] Comment on above: Order Comment: Speci men Type: BLOOD SPECIMENOrdering Facility: [facility] Address: [address] [place] [address] Performed By: #### 2 4321-2, , 2776-04 ####[facility] LABORATORYCLIA [id number] [place] [id number] [place] Chloride [Moles/Vol] 95 mmol/L Low 98-107 [facility] Comment on above: Order Comment: Speci men Type: BLOOD SPECIMENOrdering Facility: [facility] Address: [address] [place] [address] Performed By: #### 2 4321-2, , 2776-04 ####[facility]ORATORYCLIA [id number] [place] [id number] [place] CO2 [Moles/Vol] 29 mmol/L Normal 22-30 [facility] Comment on above: Order Comment: Speci men Type: BLOOD SPECIMENOrdering Facility: [facility] Address: [address] [place] [address] Performed By: #### 2 4321-2, , 2776-04 ####[facility] LABORATORYCLIA [id number] [place] [id number] [place] Creatinine [Mass/Vol] 1.11 mg/dL Normal 0.73-1.22 [facility] Comment on above: Order Comment: Speci men Type: BLOOD SPECIMENOrdering Facility: [facility] Address: [address] [place] [address] Performed By: #### 2 4321-2, , 2776-04 ####[facility] LABORATORYCLIA [id number] [place] [id number] [place] eGFRcr SerPlBld CKD-EPI 2020 74 mL/min/1.73m??? Normal >=60 [facility] Comment on above: Order Comment: Speci men Type: BLOOD SPECIMENOrdering Facility: [facility] Address: [address] [place] [address] Result Comment: Matilda mated Glomerular Filtration Rate (eGFR) is calculated using the 2020 CKD-EPI creatinine equation. This equation utilizes serum creatinine, sex, and age as parameters. The creatinine assay has traceable calibration to isotope dilution-mass spectrometry. Refer to KDIGO guidelines for clinical interpretation. In patients with unstable renal function, e.g. those with acute kidney injury, the eGFR may not accurately reflect actual GFR. Performed By: #### 2 4321-2, , 2776-04 ####[facility] LABORATORYCLIA [id number] [place] [address] [place] Glucose [Mass/Vol] 132 mg/dL High 74-99 [facility] Comment on above: Order Comment: Speci men Type: BLOOD SPECIMENOrdering Facility: [facility] Address: [address] [place] [address] Result Comment: The [place] [employer] (ADA) provides guidance for cutoff values for fasting glucose and random glucose. The ADA defines fasting as no caloric intake for at least 8 hours. Fasting plasma glucose results between 100 to 125 mg/dL indicate increased risk for diabetes (prediabetes).Fasting plasma glucose results greater than or equal to 126 mg/dL meet the criteria for diagnosis of diabetes. In the absence of unequivocal hyperglycemia, results should be confirmed by repeat testing. In a patient with classic symptoms of hyperglycemia or hyperglycemic crisis, random plasma glucose results greater than or equal to 200 mg/dL meet the criteria for diagnosis of diabetes.Reference: Standards of Medical Care in Diabetes 2016, [place] [employer]. Diabetes Care. 2016.39(Suppl 1). Performed By: #### 2 4321-2, , 2776-04 ####[facility] LABORATORYCLIA [id number] [place] [id number] [place] Potassium [Moles/Vol] 3.9 mmol/L Normal 3.7-5.1 [facility] Comment on above: Order Comment: [facility] Type: BLOOD SPECIMENOrdering Facility: [facility] Address: [address] [place] [address] Performed By: #### 2 4321-2, , 2776-04 ####[facility] LABORATORYCLIA [id number] [place] [address] [place] Sodium [Moles/Vol] 136 mmol/L Normal 136-144 [facility] Comment on above: Order Comment: Speci men Type: BLOOD SPECIMENOrdering Facility: [facility] Address: [address] [place] [address] Performed By: #### 2 4321-2, , 2776-04 ####[facility] LABORATORYCLIA [id number] [place] [id number] [place] [facility] Urea nitrogen [Mass/Vol] 34 mg/dL High 12-28 [facility] Comment on above: Order Comment: Speci men Type: BLOOD SPECIMENOrdering Facility: [facility] Address: [address] [place] [address] Performed By: #### 2 4321-2, , 2776-04 ####[facility] LABORATORYCLIA [id number] [address] OF [place] CASE MANAGEMon 12-28-2024 CASE MANAGEM Normal [facility] CBC W Auto Differential pane l (Bld)on 12-28-2024 Basophils (Bld) [#/Vol] 0.04 10*3/uL Normal <0.11 [facility] Comment on above: Order Comment: Speci men Type: BLOOD SPECIMENOrdering Facility: [facility] Address: [address] [place] [address] Performed By: #### 5 7021-8 ####[facility] LABORATORYCLIA [id number] [address] [place] Basophils/100 WBC (Bld) 0.5 % Normal [facility] Comment on above: Order Comment: Speci men Type: BLOOD SPECIMENOrdering Facility: [facility] Address: [address] [place] [address] Performed By: #### 5 7021-8 ####RUBY LABORATORYCLIA [id number] [address] [place] Differential cell count method Nom (Bld) Auto Normal [facility] Comment on above: Order Comment: Speci men Type: BLOOD SPECIMENOrdering Facility: [facility] Address: [address] [place] [address] Performed By: #### 5 7021-8 ####RUBY LABORATORYCLIA [id number] [place] [id number] [place] Eosinophils (Bld) [#/Vol] 0.61 10*3/uL High <0.46 [facility] Comment on above: Order Comment: Speci men Type: BLOOD SPECIMENOrdering Facility: [facility] Address: [address] [place] [address] Performed By: #### 5 7021-8 ####RUBY LABORATORYCLIA [id number] [place] [id number] [place] Eosinophils/100 WBC (Bld) 7.5 % Normal [facility] Comment on above: Order Comment: Speci men Type: BLOOD SPECIMENOrdering Facility: [facility] Address: [address] [place] [address] Performed By: #### 5 7021-8 ####RUBY LABORATORYCLIA [id number] [address] [place] Erythrocyte distribution width (RBC) [Ratio] 16.6 % High 11.5-15.0 [facility] Comment on above: Order Comment: Speci men Type: BLOOD SPECIMENOrdering Facility: [facility] Address: [address] [place] [address] Performed By: #### 5 7021-8 ####RUBY LABORATORYCLIA [id number] [place] [id number] [place] Hematocrit (Bld) [Volume fraction] 41.0 % Normal 39.0-51.0 [facility] Comment on above: Order Comment: Speci men Type: BLOOD SPECIMENOrdering Facility: [facility] Address: [address] [place] [address] Performed By: #### 5 7021-8 ####RUBY LABORATORYCLIA [id number] [place] [id number] [place] Hemoglobin (Bld) [Mass/Vol] 13.3 g/dL Normal 13.0-17.0 [facility] Comment on above: Order Comment: Speci men Type: BLOOD SPECIMENOrdering Facility: [facility] Address: [address] [place] [address] Performed By: #### 5 7021-8 ####[facility] LABORATORYCLIA [id number] [place] [id number] [place] Immature granulocytes (Bld) [#/Vol] 10*3/uL Normal <0.10 [facility] Comment on above: Order Comment: Speci men Type: BLOOD SPECIMENOrdering Facility: [facility] Address: [address] [place] [address] Performed By: #### 5 7021-8 ####[facility] LABORATORYCLIA [id number] [place] [id number] [place] Immature granulocytes/100 WBC (Bld) 0.2 % Normal [facility] Comment on above: Order Comment: Speci men Type: BLOOD SPECIMENOrdering Facility: [facility] Address: [address] [place] [address] Performed By: #### 5 7021-8 ####RUBY LABORATORYCLIA [id number] [place] [address] [place] Lymphocytes (Bld) [#/Vol] 1.54 10*3/uL Normal 1.00-4.00 [facility] Comment on above: Order Comment: Speci men Type: BLOOD SPECIMENOrdering Facility: [facility] Address: [address] [place] [address] Performed By: #### 5 7021-8 ####RUBY LABORATORYCLIA [id number] [place] [id number] [place] Lymphocytes/100 WBC (Bld) 19.0 % Normal [facility] Comment on above: Order Comment: Speci men Type: BLOOD SPECIMENOrdering Facility: [facility] Address: [address] [place] [address] Performed By: #### 5 7021-8 ####[facility] LABORATORYCLIA [id number] [place] [address] [place] MCH (RBC) [Entitic mass] 28.2 pg Normal 26.0-34.0 [facility] Comment on above: Order Comment: Speci men Type: BLOOD SPECIMENOrdering Facility: [facility] Address: [address] [place] [address] Performed By: #### 5 7021-8 ####[facility] LABORATORYCLIA [id number] [place] [id number] [place] MCHC (RBC) [Mass/Vol] 32.4 g/dL Normal 30.5-36.0 [facility] Comment on above: Order Comment: Speci men Type: BLOOD SPECIMENOrdering Facility: [facility] Address: [address] [place] [address] Performed By: #### 5 7021-8 ####[facility] LABORATORYCLIA [id number] [place] [id number] [place] MCV (RBC) [Entitic vol] 87.0 fL Normal 80.0-100.0 [facility] Comment on above: Order Comment: Speci men Type: BLOOD SPECIMENOrdering Facility: [facility] Address: [address] [place] [address] Performed By: #### 5 7021-8 ####[facility] LABORATORYCLIA [id number] [place] [address] [place] Monocytes (Bld) [#/Vol] 0.77 10*3/uL Normal <0.87 [facility] Comment on above: Order Comment: Speci men Type: BLOOD SPECIMENOrdering Facility: [facility] Address: [address] [place] [address] Performed By: #### 5 7021-8 ####[facility] LABORATORYCLIA [id number] [place] [id number] [place] Monocytes/100 WBC (Bld) 9.5 % Normal [facility] Comment on above: Order Comment: Speci men Type: BLOOD SPECIMENOrdering Facility: [facility] Address: [address] [place] [address] Performed By: #### 5 7021-8 ####[facility] LABORATORYCLIA [id number] [place] [id number] [place] Neutrophils (Bld) [#/Vol] 5.12 10*3/uL Normal 1.45-7.50 [facility] Comment on above: Order Comment: Speci men Type: BLOOD SPECIMENOrdering Facility: [facility] Address: [address] [place] [address] Performed By: #### 5 7021-8 ####RUBY LABORATORYCLIA [id number] [place] [id number] [place] Neutrophils/100 WBC (Bld) 63.3 % Normal [facility] Comment on above: Order Comment: Speci men Type: BLOOD SPECIMENOrdering Facility: [facility] Address: [address] [place] [address] Performed By: #### 5 7021-8 ####[facility] LABORATORYCLIA [id number] [place] [address] [place] Nucleated RBC (Bld) [#/Vol] 10*3/uL Normal <0.01 [facility] Comment on above: Order Comment: Speci men Type: BLOOD SPECIMENOrdering Facility: [facility] Address: [address] [place] [address] Performed By: #### 5 7021-8 ####RUBY LABORATORYCLIA [id number] [place] [address] [place] Nucleated RBC/100 WBC (Bld) [Ratio] 0.0 /100 WBC Normal [facility] Comment on above: Order Comment: Speci men Type: BLOOD SPECIMENOrdering Facility: [facility] Address: [address] [place] [address] Performed By: #### 5 7021-8 ####RUBY LABORATORYCLIA [id number] [place] [address] [place] Platelet mean volume (Bld) [Entitic vol] 9.5 fL Normal 9.0-12.7 [facility] Comment on above: Order Comment: Speci men Type: BLOOD SPECIMENOrdering Facility: [facility] Address: [address] [place] [address] Performed By: #### 5 7021-8 ####[facility] LABORATORYCLIA [id number] [place] [address] [place] Platelets (Bld) [#/Vol] 259 10*3/uL Normal 150-400 [facility] Comment on above: Order Comment: Speci men Type: BLOOD SPECIMENOrdering Facility: [facility] Address: [address] [place] [address] Performed By: #### 5 7021-8 ####[facility] LABORATORYCLIA [id number] [place] [id number] [place] RBC (Bld) [#/Vol] 4.71 10*6/uL Normal 4.20-6.00 [facility] Comment on above: Order Comment: Speci men Type: BLOOD SPECIMENOrdering Facility: [facility] Address: [address] [place] [address] Performed By: #### 5 7021-8 ####[facility] LABORATORYCLIA [id number] [place] [address] [place] WBC (Bld) [#/Vol] 8.10 10*3/uL Normal 3.70-11.00 [facility] Comment on above: Order Comment: Speci men Type: BLOOD SPECIMENOrdering Facility: [facility] Address: [address] [place] [address] Performed By: #### 5 7021-8 ####[facility] LABORATORYCLIA [id number] [place] [id number] [place] CONSULTon 12-28-2024 CONSULT [facility] 12-28[facility] Gas and Carbon monoxide pane l (BldV)on 12-28-2024 Base excess Calc (BldV) [Moles/Vol] 6 mmol/L High 0-2 [facility] Comment on above: Order Comment: Speci men Type: VENOUS BLOOD SPECIMENOrdering Facility: [facility] Address: [address] [place] [address] Performed By: #### 2 4344-4 ####[facility] LABORATORYCLIA [id number] [place] [id number] [place] Body temperature 98.24 [degF] Normal [facility] Comment on above: Order Comment: Speci men Type: VENOUS BLOOD SPECIMENOrdering Facility: [facility] Address: [address] [place] [address] Performed By: #### 2 4344-4 ####[facility] LABORATORYCLIA [id number] [place] [address] [place] Calcium.ionized (Bld) [Mass/Vol] 0.96 mmol/L Low 1.08-1.30 [facility] Comment on above: Order Comment: Speci men Type: VENOUS BLOOD SPECIMENOrdering Facility: [facility] Address: [address] [place] [address] Performed By: #### 2 4344-4 ####[facility] LABORATORYCLIA [id number] [place] [address] [place] Calcium.ionized adjusted to pH 7.4 (BldA) [Moles/Vol] 1.04 mmol/L Low 1.08-1.30 [facility] Comment on above: Order Comment: Speci men Type: VENOUS BLOOD SPECIMENOrdering Facility: [facility] Address: [address] [place] [address] Performed By: #### 2 4344-4 ####[facility] LABORATORYCLIA [id number] [place] [address] [place] Carboxyhemoglobin (BldV) [Mass fraction] 2.5 % High 0.0-2.0 [facility] Comment on above: Order Comment: Speci men Type: VENOUS BLOOD SPECIMENOrdering Facility: [facility] Address: [address] [place] [address] Result Comment: Carb oxyhemoglobin Reference Range for Smokers: 2.0-8.0% Performed By: #### 2 4344-4 ####[facility] LABORATORYCLIA [id number] [place] [address] [place] Chloride [Moles/Vol] 99 mmol/L Normal 97-105 [facility] Comment on above: Order Comment: Speci men Type: VENOUS BLOOD SPECIMENOrdering Facility: [facility] Address: [address] [place] [address] Performed By: #### 2 4344-4 ####[facility] LABORATORYCLIA [id number] [address] [place] CO2 (BldV) [Partial pressure] 31 mm[Hg] Low 42-55 [facility] Comment on above: Order Comment: Speci men Type: VENOUS BLOOD SPECIMENOrdering Facility: [facility] Address: [address] [place] [address] Performed By: #### 2 4344-4 ####[facility] LABORATORYCLIA [id number] [address] [place] CO2 adjusted to patient's actual temperature (BldV) [Partial pressure] Normal [facility] Comment on above: Order Comment: Speci men Type: VENOUS BLOOD SPECIMENOrdering Facility: [facility] Address: [address] [place] [address] Performed By: #### 2 4344-4 ####[facility] LABORATORYCLIA [id number] [place] [address] [place] Glucose [Mass/Vol] 198 mg/dL High 60-105 [facility] Comment on above: Order Comment: Speci men Type: VENOUS BLOOD SPECIMENOrdering Facility: [facility] Address: [address] [place] [address] Performed By: #### 2 4344-4 ####[facility] LABORATORYCLIA [id number] [place] [address] [place] HCO3 (Bld) [Moles/Vol] 27 mmol/L Normal 24-28 [facility] Comment on above: Order Comment: Speci men Type: VENOUS BLOOD SPECIMENOrdering Facility: [facility] Address: [address] [place] [address] Performed By: #### 2 4344-4 ####[facility] LABORATORYCLIA [id number] [place] [id number] [place] Hematocrit (Bld) [Volume fraction] 44.8 % Normal 39.0-51.0 [facility] Comment on above: Order Comment: Speci men Type: VENOUS BLOOD SPECIMENOrdering Facility: [facility] Address: [address] [place] [address] Performed By: #### 2 4344-4 ####[facility] LABORATORYCLIA [id number] [place] [id number] [place] Hemoglobin (Bld) [Mass/Vol] 14.6 g/dL Normal 13.0-17.0 [facility] Comment on above: Order Comment: Speci men Type: VENOUS BLOOD SPECIMENOrdering Facility: [facility] Address: [address] [place] [address] Performed By: #### 2 4344-4 ####[facility] LABORATORYCLIA [id number] [place] [id number] [place] Lactate [Moles/Vol] 1.7 mmol/L Normal 0.5-2.2 [facility] Comment on above: Order Comment: Speci men Type: VENOUS BLOOD SPECIMENOrdering Facility: [facility] Address: [address] [place] [address] Performed By: #### 2 4344-4 ####[facility] LABORATORYCLIA [id number] [place] [id number] [place] Methemoglobin (Bld) [Mass fraction] 0.6 % Normal 0.0-1.5 [facility] Comment on above: Order Comment: Speci men Type: VENOUS BLOOD SPECIMENOrdering Facility: [facility] Address: [address] [place] [address] Performed By: #### 2 4344-4 ####[facility] LABORATORYCLIA [id number] [address] [place] O2 THERAPY Positive Normal [facility] Comment on above: Order Comment: Speci men Type: VENOUS BLOOD SPECIMENOrdering Facility: [facility] Address: [address] [place] [address] Performed By: #### 2 4344-4 ####[facility] LABORATORYCLIA [id number] [place] [id number] [place] Oxygen (BldV) [Partial pressure] 108 mm[Hg] High 35-45 [facility] Comment on above: Order Comment: Speci men Type: VENOUS BLOOD SPECIMENOrdering Facility: [facility] Address: [address] [place] [address] Performed By: #### 2 4344-4 ####RU[facility] LABORATORYCLIA [id number] [place] [id number] [place] Oxygen adjusted to patient's actual temperature (BldV) [Partial pressure] Normal [facility] Comment on above: Order Comment: Speci men Type: VENOUS BLOOD SPECIMENOrdering Facility: [facility] Address: [address] [place] [address] Performed By: #### 2 4344-4 ####RU[facility] LABORATORYCLIA [id number] [place] [id number] [place] Oxygen saturation in Venous blood 98 % High 60-85 [facility] Comment on above: Order Comment: Speci men Type: VENOUS BLOOD SPECIMENOrdering Facility: [facility] Address: [address] [place] [address] Performed By: #### 2 4344-4 ####[facility] LABORATORYCLIA [id number] [place] [id number] [place] Oxyhemoglobin (BldV) [Mass fraction] 95 % High 60-85 [facility] Comment on above: Order Comment: Speci men Type: VENOUS BLOOD SPECIMENOrdering Facility: [facility] Address: [address] [place] [address] Performed By: #### 2 4344-4 ####RU[facility] LABORATORYCLIA [id number] [place] [id number] [place] pH (BldV) 7.55 [pH] High 7.32-7.42 [facility] Comment on above: Order Comment: Speci men Type: VENOUS BLOOD SPECIMENOrdering Facility: [facility] Address: [address] [place] [address] Performed By: #### 2 4344-4 ####[facility] LABORATORYCLIA [id number] [place] [id number] [place] pH adjusted to patient's actual temperature (BldV) Normal [facility] Comment on above: Order Comment: Speci men Type: VENOUS BLOOD SPECIMENOrdering Facility: [facility] Address: [address] [place] [address] Performed By: #### 2 4344-4 ####[facility] LABORATORYCLIA [id number] [place] [id number] [place] Potassium [Moles/Vol] 3.3 mmol/L Low 3.5-5.0 [facility] Comment on above: Order Comment: Speci men Type: VENOUS BLOOD SPECIMENOrdering Facility: [facility] Address: [address] [place] [address] Performed By: #### 2 4344-4 ####[facility] LABORATORYCLIA [id number] [place] [id number] [place] Sodium [Moles/Vol] 135 mmol/L Low 136-144 [facility] Comment on above: Order Comment: Speci men Type: VENOUS BLOOD SPECIMENOrdering Facility: [facility] Address: [address] [place] [address] Performed By: #### 2 4344-4 ####RU[facility] LABORATORYCLIA [id number] [place] [id number] [place] Magnesium SerPl-mCncon 12-28 Magnesium [Mass/Vol] 2.3 mg/dL Normal 1.7-2.3 [facility] Comment on above: Order Comment: Speci men Type: BLOOD SPECIMENOrdering Facility: [facility] Address: [address] [place] [address] Performed By: #### 2 4321-2, , 2776- ####[facility] LABORATORYCLIA [id number] [place] [id number] [place] Phosphate SerPl-mCncon 12-28 Phosphate [Mass/Vol] 3.1 mg/dL Normal 2.7-4.8 [facility] Comment on above: Order Comment: Speci men Type: BLOOD SPECIMENOrdering Facility: [facility] Address: [address] [place] [address] Performed By: #### 2 4321-2, 70484-5, 2777-1 ####[facility] LABORATORYCLIA [id number] [place] [id number] [place] XR CHEST 1V FRONTAL PORTon 0 9-24-2025 XR CHEST 1V FRONTAL PORT Normal [facility] ALLIED HEALTHon 12-27-2024 ALLIED HEALTH Normal [facility] ALLIED HEALTH Normal [facility] Basic metabolic 2000 panelon 12-27-2024 Anion gap [Moles/Vol] 10 mmol/L Normal 8-15 [facility] Comment on above: Order Comment: Speci men Type: BLOOD SPECIMENOrdering Facility: [facility] Address: [address] [place] [address] Performed By: #### 2 4321-2, , 2776-04 ####[facility] LABORATORYCLIA [id number] [place] [address] [place] Calcium [Mass/Vol] 8.9 mg/dL Normal 8.5-10.2 [facility] Comment on above: Order Comment: Speci men Type: BLOOD SPECIMENOrdering Facility: [facility] Address: [address] [place] [address] Performed By: #### 2 4321-2, , 2776-04 ####[facility] LABORATORYCLIA [id number] [place] [id number] [place] Chloride [Moles/Vol] 93 mmol/L Low 98-107 [facility] Comment on above: Order Comment: Speci men Type: BLOOD SPECIMENOrdering Facility: [facility] Address: [address] [place] [address] Performed By: #### 2 4321-2, , 2776-04 ####[facility] LABORATORYCLIA [id number] [place] [address] [place] CO2 [Moles/Vol] 30 mmol/L Normal 22-30 [facility] Comment on above: Order Comment: Speci men Type: BLOOD SPECIMENOrdering Facility: [facility] Address: [address] [place] [address] Performed By: #### 2 4321-2, , 2776-04 ####[facility] LABORATORYCLIA [id number] [place] [address] [place] Creatinine [Mass/Vol] 1.13 mg/dL Normal 0.73-1.22 [facility] Comment on above: Order Comment: Concetta coronado Type: BLOOD SPECIMENOrdering Facility: [facility] Address: [address] [place] [address] Performed By: #### 2 4321-2, 52922-8, 2776-04 ####[facility] LABORATORYCLIA [id number] [place] [id number] [place] eGFRcr SerPlBld CKD-EPI 2020 73 mL/min/1.73m??? Normal >=60 [facility] Comment on above: Order Comment: Concetta coronado Type: BLOOD SPECIMENOrdering Facility: [facility] Address: [address] [place] [address] Result Comment: Matilda mated Glomerular Filtration Rate (eGFR) is calculated using the 2020 CKD-EPI creatinine equation. This equation utilizes serum creatinine, sex, and age as parameters. The creatinine assay has traceable calibration to isotope dilution-mass spectrometry. Refer to KDIGO guidelines for clinical interpretation. In patients with unstable renal function, e.g. those with acute kidney injury, the eGFR may not accurately reflect actual GFR. Performed By: #### 2 4321-2, , 2776-04 ####[facility] LABORATORYCLIA [id number] [place] [id number] [place] Glucose [Mass/Vol] 142 mg/dL High 74-99 [facility] Comment on above: Order Comment: Concetta coronado Type: BLOOD SPECIMENOrdering Facility: [facility] Address: [address] [place] [address] Result Comment: The [place] [employer] (ADA) provides guidance for cutoff values for fasting glucose and random glucose. The ADA defines fasting as no caloric intake for at least 8 hours. Fasting plasma glucose results between 100 to 125 mg/dL indicate increased risk for diabetes (prediabetes).Fasting plasma glucose results greater than or equal to 126 mg/dL meet the criteria for diagnosis of diabetes. In the absence of unequivocal hyperglycemia, results should be confirmed by repeat testing. In a patient with classic symptoms of hyperglycemia or hyperglycemic crisis, random plasma glucose results greater than or equal to 200 mg/dL meet the criteria for diagnosis of diabetes.Reference: Standards of Medical Care in Diabetes 2016, [place] [employer]. Diabetes Care. 2016.39(Suppl 1). Performed By: #### 2 4321-2, , 2776-04 ####[facility] LABORATORYCLIA [id number] [place] [address] [place] Potassium [Moles/Vol] 3.8 mmol/L Normal 3.7-5.1 [facility] Comment on above: Order Comment: Speci men Type: BLOOD SPECIMENOrdering Facility: [facility] Address: [address] [place] [address] Performed By: #### 2 4321-2, , 2776-04 ####[facility] LABORATORYCLIA [id number] [place] [id number] [place] Sodium [Moles/Vol] 133 mmol/L Low 136-144 [facility] Comment on above: Order Comment: Speci men Type: BLOOD SPECIMENOrdering Facility: [facility] Address: [address] [place] [address] Performed By: #### 2 4321-2, , 2776-04 ####[facility] LABORATORYCLIA [id number] [place] [id number] [place] Urea nitrogen [Mass/Vol] 30 mg/dL High 9-24 [facility] Comment on above: Order Comment: Speci men Type: BLOOD SPECIMENOrdering Facility: [facility] Address: [address] [place] [address] Performed By: #### 2 4321-2, , 2776-04 ####[place] LABORATORYCLIA [id number] [place] [id number] [place] CBC W Auto Differential pane l (Bld)on 12-27-2024 Basophils (Bld) [#/Vol] 0.04 10*3/uL Normal <0.11 [facility] Comment on above: Order Comment: Speci men Type: BLOOD SPECIMENOrdering Facility: [facility] Address: [address] [place] [address] Performed By: #### 5 7021-8 ####[place] LABORATORYCLIA [id number] [address] [place] Basophils/100 WBC (Bld) 0.5 % Normal [facility] Comment on above: Order Comment: Speci men Type: BLOOD SPECIMENOrdering Facility: [facility] Address: [address] [place] [address] Performed By: #### 5 7021-8 ####[facility] LABORATORYCLIA [id number] [address] [place] Differential cell count method Nom (Bld) Auto Normal [facility] Comment on above: Order Comment: Speci men Type: BLOOD SPECIMENOrdering Facility: [facility] Address: [address] [place] [address] Performed By: #### 5 7021-8 ####[facility] LABORATORYCLIA [id number] [place] [address] [place] Eosinophils (Bld) [#/Vol] 0.72 10*3/uL High <0.46 [facility] Comment on above: Order Comment: Speci men Type: BLOOD SPECIMENOrdering Facility: [facility] Address: [address] [place] [address] Performed By: #### 5 7021-8 ####[facility] LABORATORYCLIA [id number] [address] Eosinophils/100 WBC (Bld) 8.2 % Normal [facility] Comment on above: Order Comment: Speci men Type: BLOOD SPECIMENOrdering Facility: [facility] Address: [address] [place] [address] Performed By: #### 5 7021-8 ####[facility] LABORATORYCLIA [id number] [address] [place] Erythrocyte distribution width (RBC) [Ratio] 16.4 % High 11.5-15.0 [facility] Comment on above: Order Comment: Speci men Type: BLOOD SPECIMENOrdering Facility: [facility] Address: [address] [place] [address] Performed By: #### 5 7021-8 ####RU[facility] LABORATORYCLIA [id number] [place] [address] [place] Hematocrit (Bld) [Volume fraction] 41.7 % Normal 39.0-51.0 [facility] Comment on above: Order Comment: Speci men Type: BLOOD SPECIMENOrdering Facility: [facility] Address: [address] [place] [address] Performed By: #### 5 7021-8 ####[facility] LABORATORYCLIA [id number] [place] [address] [place] Hemoglobin (Bld) [Mass/Vol] 13.4 g/dL Normal 13.0-17.0 [facility] Comment on above: Order Comment: Speci men Type: BLOOD SPECIMENOrdering Facility: [facility] Address: [address] [place] [address] Performed By: #### 5 7021-8 ####[facility] LABORATORYCLIA [id number] [place] [address] [place] Immature granulocytes (Bld) [#/Vol] 0.04 10*3/uL Normal <0.10 [facility] Comment on above: Order Comment: Speci men Type: BLOOD SPECIMENOrdering Facility: [facility] Address: [address] [place] [address] Performed By: #### 5 7021-8 ####RU[facility] LABORATORYCLIA [id number] [place] [address] [place] Immature granulocytes/100 WBC (Bld) 0.5 % Normal [facility] Comment on above: Order Comment: Speci men Type: BLOOD SPECIMENOrdering Facility: [facility] Address: [address] [place] [address] Performed By: #### 5 7021-8 ####[facility] LABORATORYCLIA [id number] [place] [id number] [place] Lymphocytes (Bld) [#/Vol] 1.50 10*3/uL Normal 1.00-4.00 [facility] Comment on above: Order Comment: Speci men Type: BLOOD SPECIMENOrdering Facility: [facility] Address: [address] [place] [address] Performed By: #### 5 7021-8 ####[facility] LABORATORYCLIA [id number] [address] [place] Lymphocytes/100 WBC (Bld) 17.1 % Normal [facility] Comment on above: Order Comment: Speci men Type: BLOOD SPECIMENOrdering Facility: [facility] Address: [address] [place] [address] Performed By: #### 5 7021-8 ####[facility] LABORATORYCLIA [id number] [place] [address] [place] MCH (RBC) [Entitic mass] 28.0 pg Normal 26.0-34.0 [facility] Comment on above: Order Comment: Speci men Type: BLOOD SPECIMENOrdering Facility: [facility] Address: [address] [place] [address] Performed By: #### 5 7021-8 ####[facility] LABORATORYCLIA [id number] [address] [place] MCHC (RBC) [Mass/Vol] 32.1 g/dL Normal 30.5-36.0 [facility] Comment on above: Order Comment: Speci men Type: BLOOD SPECIMENOrdering Facility: [facility] Address: [address] [place] [address] Performed By: #### 5 7021-8 ####[facility] LABORATORYCLIA [id number] [address] [place] MCV (RBC) [Entitic vol] 87.1 fL Normal 80.0-100.0 [facility] Comment on above: Order Comment: Speci men Type: BLOOD SPECIMENOrdering Facility: [facility] Address: [address] [place] [address] Performed By: #### 5 7021-8 ####[place] LABORATORYCLIA [id number] [address] [place] Monocytes (Bld) [#/Vol] 0.72 10*3/uL Normal <0.87 [facility] Comment on above: Order Comment: Speci men Type: BLOOD SPECIMENOrdering Facility: [facility] Address: [address] [place] [address] Performed By: #### 5 7021-8 ####[facility] LABORATORYCLIA [id number] [place] [id number] [place] Monocytes/100 WBC (Bld) 8.2 % Normal [facility] Comment on above: Order Comment: Speci men Type: BLOOD SPECIMENOrdering Facility: [facility] Address: [address] [place] [address] Performed By: #### 5 7021-8 ####[facility] LABORATORYCLIA [id number] [place] [address] [place] Neutrophils (Bld) [#/Vol] 5.73 10*3/uL Normal 1.45-7.50 [facility] Comment on above: Order Comment: Speci men Type: BLOOD SPECIMENOrdering Facility: [facility] Address: [address] [place] [address] Performed By: #### 5 7021-8 ####[facility] LABORATORYCLIA [id number] [place] [id number] [place] Neutrophils/100 WBC (Bld) 65.5 % Normal [facility] Comment on above: Order Comment: Speci men Type: BLOOD SPECIMENOrdering Facility: [facility] Address: [address] [place] [address] Performed By: #### 5 7021-8 ####[facility] LABORATORYCLIA [id number] [place] [id number] [place] Nucleated RBC (Bld) [#/Vol] 10*3/uL Normal <0.01 [facility] Comment on above: Order Comment: Speci men Type: BLOOD SPECIMENOrdering Facility: [facility] Address: [address] [place] [address] Performed By: #### 5 7021-8 ####[place] LABORATORYCLIA [id number] [place] [id number] [place] Nucleated RBC/100 WBC (Bld) [Ratio] 0.0 /100 WBC Normal [facility] Comment on above: Order Comment: Speci men Type: BLOOD SPECIMENOrdering Facility: [facility] Address: [address] [place] [address] Performed By: #### 5 7021-8 ####[facility] LABORATORYCLIA [id number] [place] [id number] [place] Platelet mean volume (Bld) [Entitic vol] 9.3 fL Normal 9.0-12.7 [facility] Comment on above: Order Comment: Speci men Type: BLOOD SPECIMENOrdering Facility: [facility] Address: [address] [place] [address] Performed By: #### 5 7021-8 ####[facility] LABORATORYCLIA [id number] [place] [id number] [place] Platelets (Bld) [#/Vol] 267 10*3/uL Normal 150-400 [facility] Comment on above: Order Comment: Speci men Type: BLOOD SPECIMENOrdering Facility: [facility] Address: [address] [place] [address] Performed By: #### 5 7021-8 ####[place] LABORATORYCLIA [id number] [place] [address] [place] RBC (Bld) [#/Vol] 4.79 10*6/uL Normal 4.20-6.00 [facility] Comment on above: Order Comment: Speci men Type: BLOOD SPECIMENOrdering Facility: [facility] Address: [address] [place] [address] Performed By: #### 5 7021-8 ####[facility] LABORATORYCLIA [id number] [place] [id number] [place] WBC (Bld) [#/Vol] 8.75 10*3/uL Normal 3.70-11.00 [facility] Comment on above: Order Comment: Speci men Type: BLOOD SPECIMENOrdering Facility: [facility] Address: [address] [place] [address] Performed By: #### 5 7021-8 ####[facility] LABORATORYCLIA [id number] [place] [id number] [place] CONSULTon 12-27-2024 CONSULT Normal [facility] CONSULT PROGon 12-27-2024 CONSULT PROG Normal [facility] Magnesium [Mass/Vol] 2.5 mg/dL High 1.7-2.3 [facility] Comment on above: Order Comment: Speci men Type: BLOOD SPECIMENOrdering Facility: [facility] Address: [address] [place] [address] Performed By: #### 2 4321-2, 24060-2, 2776-04 ####[facility] LABORATORYCLIA [id number] [place] [id number] [place] NUTRITIONon 12-27-2024 NUTRITION Normal [facility] Phosphate [facility]27 Phosphate [Mass/Vol] 3.4 mg/dL Normal 2.7-4.8 [facility] Comment on above: Order Comment: Speci men Type: BLOOD SPECIMENOrdering Facility: [facility] Address: [facility] [place] [id number] Performed By: #### 2 4321-2, 48668-9, 2776-04 ####[facility] LABORATORYCLIA [id number] [place] [id number] [place] THERAPY NTon 12-27-2024 THERAPY NT [facility] THERAPY NT [facility] XR CHEST 1V FRONTAL PORTon 0 12-27-2024 XR CHEST 1V FRONTAL PORT [facility] XR MOD BARIUM SWALLOW W SPEE [place] 12-27-2024 XR MOD BARIUM SWALLOW W SPEECH Normal [facility] Basic metabolic 2000 panelon 12-26-2024 Anion gap [Moles/Vol] 11 mmol/L Normal 8-15 [facility] Comment on above: Order Comment: Speci men Type: BLOOD SPECIMENOrdering Facility: [facility] Address: [facility] [place] [id number] Performed By: #### 2 4321-2, 2777-1, ####[facility] LABORATORYCLIA [id number] [place] [address] [place] Calcium [Mass/Vol] 9.2 mg/dL Normal 8.5-10.2 [facility] Comment on above: Order Comment: Speci men Type: BLOOD SPECIMENOrdering Facility: [facility] Address: [address] [place] [address] Performed By: #### 2 4321-2, 2776-04, ####[facility] LABORATORYCLIA [id number] [place] [id number] [place] Chloride [Moles/Vol] 96 mmol/L Low 98-107 [facility] Comment on above: Order Comment: Speci men Type: BLOOD SPECIMENOrdering Facility: [facility] Address: [address] [place] [address] Performed By: #### 2 4321-2, 2776-04, ####[place] LABORATORYCLIA [id number] [place] [address] [place] CO2 [Moles/Vol] 29 mmol/L Normal 22-30 [facility] Comment on above: Order Comment: Speci men Type: BLOOD SPECIMENOrdering Facility: [facility] Address: [address] [place] [address] Performed By: #### 2 4321-2, 2776-04, ####[place] LABORATORYCLIA [id number] [place] [id number] [place] Creatinine [Mass/Vol] 1.07 mg/dL Normal 0.73-1.22 [facility] Comment on above: Order Comment: Speci men Type: BLOOD SPECIMENOrdering Facility: [facility] Address: [address] [place] [address] Performed By: #### 2 4321-2, 2776-04, ####[place] LABORATORYCLIA [id number] [place] [id number] [place] eGFRcr SerPlBld CKD-EPI 2020 77 mL/min/1.73m??? Normal >=60 [facility] Comment on above: Order Comment: Speci men Type: BLOOD SPECIMENOrdering Facility: [facility] Address: [address] [place] [id number] Result Comment: Matilda mated Glomerular Filtration Rate (eGFR) is calculated using the 2020 CKD-EPI creatinine equation. This equation utilizes serum creatinine, sex, and age as parameters. The creatinine assay has traceable calibration to isotope dilution-mass spectrometry. Refer to KDIGO guidelines for clinical interpretation. In patients with unstable renal function, e.g. those with acute kidney injury, the eGFR may not accurately reflect actual GFR. Performed By: #### 2 4321-2, 2776-04, ####[facility] LABORATORYCLIA [id number] [place] [id number] [place] Glucose [Mass/Vol] 105 mg/dL High 74-99 [facility] Comment on above: Order Comment: Concetta coronado Type: BLOOD SPECIMENOrdering Facility: [facility] Address: [address] [place] [address] Result Comment: The [place] [employer] (ADA) provides guidance for cutoff values for fasting glucose and random glucose. The ADA defines fasting as no caloric intake for at least 8 hours. Fasting plasma glucose results between 100 to 125 mg/dL indicate increased risk for diabetes (prediabetes).Fasting plasma glucose results greater than or equal to 126 mg/dL meet the criteria for diagnosis of diabetes. In the absence of unequivocal hyperglycemia, results should be confirmed by repeat testing. In a patient with classic symptoms of hyperglycemia or hyperglycemic crisis, random plasma glucose results greater than or equal to 200 mg/dL meet the criteria for diagnosis of diabetes.Reference: Standards of Medical Care in Diabetes 2016, [place] [employer]. Diabetes Care. 2016.39(Suppl 1). Performed By: #### 2 4321-2, 2776-04, ####[facility] LABORATORYCLIA [id number] [place] [id number] [place] Potassium [Moles/Vol] 4.0 mmol/L Normal 3.7-5.1 [facility] Comment on above: Order Comment: Concetta coronado Type: BLOOD SPECIMENOrdering Facility: [facility] Address: [address] [place] [id number] Performed By: #### 2 4321-2, 2776-04, ####[place] LABORATORYCLIA [id number] [place] [id number] [place] Sodium [Moles/Vol] 136 mmol/L Normal 136-144 [facility] Comment on above: Order Comment: Speci men Type: BLOOD SPECIMENOrdering Facility: [facility] Address: [address] [place] [address] Performed By: #### 2 4321-2, 27710-04, ####[place] LABORATORYCLIA [id number] [place] [id number] [place] Urea nitrogen [Mass/Vol] 33 mg/dL High 9-24 [facility] Comment on above: Order Comment: Speci men Type: BLOOD SPECIMENOrdering Facility: [facility] Address: [address] [place] [address] Performed By: #### 2 4321-2, 2776-04, ####[place] LABORATORYCLIA [id number] [place] [id number] [place] CASE MANAGEMon 12-26-2024 CASE MANAGEM Normal [facility] CBC W Auto Differential pane l (Bld)on 12-26-2024 Basophils (Bld) [#/Vol] 0.03 10*3/uL Normal <0.11 [facility] Comment on above: Order Comment: Speci men Type: BLOOD SPECIMENOrdering Facility: [facility] Address: [address] [place] [address] Performed By: #### 5 7021-8 ####[place] LABORATORYCLIA [id number] [place] [id number] [place] Basophils/100 WBC (Bld) 0.3 % Normal [facility] Comment on above: Order Comment: Speci men Type: BLOOD SPECIMENOrdering Facility: [facility] Address: [address] [place] [address] Performed By: #### 5 7021-8 ####[place] LABORATORYCLIA [id number] [place] [id number] [place] Differential cell count method Nom (Bld) Auto Normal [facility] Comment on above: Order Comment: Speci men Type: BLOOD SPECIMENOrdering Facility: [facility] Address: [address] [place] [address] Performed By: #### 5 7021-8 ####[facility] LABORATORYCLIA [id number] [place] [id number] [place] Eosinophils (Bld) [#/Vol] 0.75 10*3/uL High <0.46 [facility] Comment on above: Order Comment: Speci men Type: BLOOD SPECIMENOrdering Facility: [facility] Address: [address] [place] [address] Performed By: #### 5 7021-8 ####[facility] LABORATORYCLIA [id number] [address] [place] Eosinophils/100 WBC (Bld) 8.7 % Normal [facility] Comment on above: Order Comment: Speci men Type: BLOOD SPECIMENOrdering Facility: [facility] Address: [address] [place] [address] Performed By: #### 5 7021-8 ####[facility] LABORATORYCLIA [id number] [place] [address] [place] Erythrocyte distribution width (RBC) [Ratio] 16.5 % High 11.5-15.0 [facility] Comment on above: Order Comment: Speci men Type: BLOOD SPECIMENOrdering Facility: [facility] Address: [address] [place] [address] Performed By: #### 5 7021-8 ####[facility] LABORATORYCLIA [id number] [place] [id number] [place] Hematocrit (Bld) [Volume fraction] 41.3 % Normal 39.0-51.0 [facility] Comment on above: Order Comment: Speci men Type: BLOOD SPECIMENOrdering Facility: [facility] Address: [address] [place] [address] Performed By: #### 5 7021-8 ####[facility] LABORATORYCLIA [id number] [place] [id number] [place] Hemoglobin (Bld) [Mass/Vol] 13.6 g/dL Normal 13.0-17.0 [facility] Comment on above: Order Comment: Speci men Type: BLOOD SPECIMENOrdering Facility: [facility] Address: [address] [place] [address] Performed By: #### 5 7021-8 ####[facility] LABORATORYCLIA [id number] [place] [id number] [place] Immature granulocytes (Bld) [#/Vol] 10*3/uL Normal <0.10 [facility] Comment on above: Order Comment: Speci men Type: BLOOD SPECIMENOrdering Facility: [facility] Address: [address] [place] [address] Performed By: #### 5 7021-8 ####[facility] LABORATORYCLIA [id number] [address] [place] Immature granulocytes/100 WBC (Bld) 0.2 % Normal [facility] Comment on above: Order Comment: Speci men Type: BLOOD SPECIMENOrdering Facility: [facility] Address: [address] [place] [address] Performed By: #### 5 7021-8 ####[facility] LABORATORYCLIA [id number] [place] [address] [place] Lymphocytes (Bld) [#/Vol] 1.35 10*3/uL Normal 1.00-4.00 [facility] Comment on above: Order Comment: Speci men Type: BLOOD SPECIMENOrdering Facility: [facility] Address: [address] [place] [address] Performed By: #### 5 7021-8 ####[facility] LABORATORYCLIA [id number] [place] [id number] [place] Lymphocytes/100 WBC (Bld) 15.7 % Normal [facility] Comment on above: Order Comment: Speci men Type: BLOOD SPECIMENOrdering Facility: [facility] Address: [address] [place] [address] Performed By: #### 5 7021-8 ####[facility] LABORATORYCLIA [id number] [place] [address] [place] MCH (RBC) [Entitic mass] 28.9 pg Normal 26.0-34.0 [facility] Comment on above: Order Comment: Speci men Type: BLOOD SPECIMENOrdering Facility: [facility] Address: [address] [place] [address] Performed By: #### 5 7021-8 ####[facility] LABORATORYCLIA [id number] [place] [address] [place] MCHC (RBC) [Mass/Vol] 32.9 g/dL Normal 30.5-36.0 [facility] Comment on above: Order Comment: Speci men Type: BLOOD SPECIMENOrdering Facility: [facility] Address: [address] [place] [address] Performed By: #### 5 7021-8 ####[facility] LABORATORYCLIA [id number] [address] [place] MCV (RBC) [Entitic vol] 87.7 fL Normal 80.0-100.0 [facility] Comment on above: Order Comment: Speci men Type: BLOOD SPECIMENOrdering Facility: [facility] Address: [address] [place] [address] Performed By: #### 5 7021-8 ####[facility] LABORATORYCLIA [id number] [address] [place] Monocytes (Bld) [#/Vol] 0.65 10*3/uL Normal <0.87 [facility] Comment on above: Order Comment: Speci men Type: BLOOD SPECIMENOrdering Facility: [facility] Address: [address] [place] [address] Performed By: #### 5 7021-8 ####[facility] LABORATORYCLIA [id number] [address] [place] Monocytes/100 WBC (Bld) 7.6 % Normal [facility] Comment on above: Order Comment: Speci men Type: BLOOD SPECIMENOrdering Facility: [facility] Address: [address] [place] [address] Performed By: #### 5 7021-8 ####[facility] LABORATORYCLIA [id number] [place] [address] [place] Neutrophils (Bld) [#/Vol] 5.80 10*3/uL Normal 1.45-7.50 [facility] Comment on above: Order Comment: Speci men Type: BLOOD SPECIMENOrdering Facility: [facility] Address: [address] [place] [address] Performed By: #### 5 7021-8 ####[facility] LABORATORYCLIA [id number] [place] [address] [place] Neutrophils/100 WBC (Bld) 67.5 % Normal [facility] Comment on above: Order Comment: Speci men Type: BLOOD SPECIMENOrdering Facility: [facility] Address: [address] [place] [address] Performed By: #### 5 7021-8 ####[facility] LABORATORYCLIA [id number] [place] [address] [place] Nucleated RBC (Bld) [#/Vol] 10*3/uL Normal <0.01 [facility] Comment on above: Order Comment: Speci men Type: BLOOD SPECIMENOrdering Facility: [facility] Address: [address] [place] [address] Performed By: #### 5 7021-8 ####[facility] LABORATORYCLIA [id number] [place] [address] [place] Nucleated RBC/100 WBC (Bld) [Ratio] 0.0 /100 WBC Normal [facility] Comment on above: Order Comment: Speci men Type: BLOOD SPECIMENOrdering Facility: [facility] Address: [address] [place] [address] Performed By: #### 5 7021-8 ####[facility] LABORATORYCLIA [id number] [place] [id number] [place] Platelet mean volume (Bld) [Entitic vol] 9.3 fL Normal 9.0-12.7 [facility] Comment on above: Order Comment: Speci men Type: BLOOD SPECIMENOrdering Facility: [facility] Address: [address] [place] [address] Performed By: #### 5 7021-8 ####[facility]ORATORYCLIA [id number] [place] [id number] [place] Platelets (Bld) [#/Vol] 256 10*3/uL Normal 150-400 [facility] Comment on above: Order Comment: Speci men Type: BLOOD SPECIMENOrdering Facility: [facility] Address: [address] [place] [address] Performed By: #### 5 7021-8 ####[facility] LABORATORYCLIA [id number] [place] [id number] [place] [facility] [place] RBC (Bld) [#/Vol] 4.71 10*6/uL Normal 4.20-6.00 [facility] Comment on above: Order Comment: Speci men Type: BLOOD SPECIMENOrdering Facility: [facility] Address: [address] [place] [address] Performed By: #### 5 7021-8 ####[facility] LABORATORYCLIA [id number] [place] [id number] [facility] WBC (Bld) [#/Vol] 8.60 10*3/uL Normal 3.70-11.00 [facility] Comment on above: Order Comment: Speci men Type: BLOOD SPECIMENOrdering Facility: [facility] Address: [address] [place] [address] Performed By: #### 5 7021-8 ####[facility] LABORATORYCLIA [id number] [place] [id number] [facility] [place] CBC panel Auto (Bld)on 12-26 Erythrocyte distribution width (RBC) [Ratio] 16.6 % High 11.5-15.0 [facility] Comment on above: Order Comment: Speci men Type: BLOOD SPECIMENOrdering Facility: [facility] Address: [address] [place] [address] Performed By: #### 5 8410-2 ####[facility] LABORATORYCLIA [id number] [place] [id number] [facility] [place] Hematocrit (Bld) [Volume fraction] 41.9 % Normal 39.0-51.0 [facility] Comment on above: Order Comment: Speci men Type: BLOOD SPECIMENOrdering Facility: [facility] Address: [address] [place] [address] Performed By: #### 5 8410-2 ####[facility] LABORATORYCLIA [id number] [address] [place] Hemoglobin (Bld) [Mass/Vol] 13.5 g/dL Normal 13.0-17.0 [facility] Comment on above: Order Comment: Speci men Type: BLOOD SPECIMENOrdering Facility: [facility] Address: [address] [place] [address] Performed By: #### 5 8410-2 ####[facility] LABORATORYCLIA [id number] [address] [place] MCH (RBC) [Entitic mass] 28.0 pg Normal 26.0-34.0 [facility] Comment on above: Order Comment: Speci men Type: BLOOD SPECIMENOrdering Facility: [facility] Address: [address] [place] [address] Performed By: #### 5 8410-2 ####[facility] LABORATORYCLIA [id number] [address] [place] MCHC (RBC) [Mass/Vol] 32.2 g/dL Normal 30.5-36.0 [facility] Comment on above: Order Comment: Speci men Type: BLOOD SPECIMENOrdering Facility: [facility] Address: [address] [place] [address] Performed By: #### 5 8410-2 ####[facility] LABORATORYCLIA [id number] [address] [place] MCV (RBC) [Entitic vol] 86.9 fL Normal 80.0-100.0 [facility] Comment on above: Order Comment: Speci men Type: BLOOD SPECIMENOrdering Facility: [facility] Address: [address] [place] [address] Performed By: #### 5 8410-2 ####[facility] LABORATORYCLIA [id number] [place] [address] [place] Nucleated RBC (Bld) [#/Vol] 10*3/uL Normal <0.01 [facility] Comment on above: Order Comment: Speci men Type: BLOOD SPECIMENOrdering Facility: [facility] Address: [address] [place] [address] Performed By: #### 5 8410-2 ####[facility] LABORATORYCLIA [id number] [place] [address] [place] Platelet mean volume (Bld) [Entitic vol] 9.4 fL Normal 9.0-12.7 [facility] Comment on above: Order Comment: Speci men Type: BLOOD SPECIMENOrdering Facility: [facility] Address: [address] [place] [address] Performed By: #### 5 8410-2 ####[facility] LABORATORYCLIA [id number] [place] [address] [place] Platelets (Bld) [#/Vol] 264 10*3/uL Normal 150-400 [facility] Comment on above: Order Comment: Speci men Type: BLOOD SPECIMENOrdering Facility: [facility] Address: [address] [place] [address] Performed By: #### 5 8410-2 ####[facility] LABORATORYCLIA [id number] [place] [address] [place] RBC (Bld) [#/Vol] 4.82 10*6/uL Normal 4.20-6.00 [facility] Comment on above: Order Comment: Speci men Type: BLOOD SPECIMENOrdering Facility: [facility] Address: [address] [place] [address] Performed By: #### 5 8410-2 ####[facility] LABORATORYCLIA [id number] [place] [id number] [place] WBC (Bld) [#/Vol] 9.14 10*3/uL Normal 3.70-11.00 [facility] Comment on above: Order Comment: Speci men Type: BLOOD SPECIMENOrdering Facility: [facility] Address: [address] [place], [place] [address] Performed By: #### 5 8410-2 ####[facility] LABORATORYCLIA [id number] [place] [id number] [place] CONSULT PROGon 12-26-2024 CONSULT PROG Normal [facility] CONSULT PROG Normal [facility] Gas and Carbon monoxide pane l (BldV)on 12-26-2024 Base excess Calc (BldV) [Moles/Vol] 7 mmol/L High 0-2 [facility] Comment on above: Order Comment: Speci men Type: VENOUS BLOOD SPECIMENOrdering Facility: [facility] Address: [address] [place] [address] Performed By: #### 2 4344-4 ####[facility] LABORATORYCLIA [id number] [place] [id number] [place] Body temperature 32 [degF] Normal [facility] Comment on above: Order Comment: Speci men Type: VENOUS BLOOD SPECIMENOrdering Facility: [facility] Address: [address] [place] [address] Performed By: #### 2 4344-4 ####[facility] LABORATORYCLIA [id number] [place] [id number] [place] Calcium.ionized (Bld) [Mass/Vol] 1.09 mmol/L Normal 1.08-1.30 [facility] Comment on above: Order Comment: Speci men Type: VENOUS BLOOD SPECIMENOrdering Facility: [facility] Address: [address] [place] [address] Performed By: #### 2 4344-4 ####[facility] LABORATORYCLIA [id number] [place] [id number] [place] Calcium.ionized adjusted to pH 7.4 (BldA) [Moles/Vol] 1.12 mmol/L Normal 1.08-1.30 [facility] Comment on above: Order Comment: Speci men Type: VENOUS BLOOD SPECIMENOrdering Facility: [facility] Address: [address] [place] [address] Performed By: #### 2 4344-4 ####[facility] LABORATORYCLIA [id number] [place] [address] [place] Carboxyhemoglobin (BldV) [Mass fraction] 3.3 % High 0.0-2.0 [facility] Comment on above: Order Comment: Speci men Type: VENOUS BLOOD SPECIMENOrdering Facility: [facility] Address: [address] [place] [address] Result Comment: Carb oxyhemoglobin Reference Range for Smokers: 2.0-8.0% Performed By: #### 2 4344-4 ####[facility] LABORATORYCLIA [id number] [place] [address] [place] Chloride [Moles/Vol] 99 mmol/L Normal 97-105 [facility] Comment on above: Order Comment: Speci men Type: VENOUS BLOOD SPECIMENOrdering Facility: [facility] Address: [address] [place] [address] Performed By: #### 2 4344-4 ####[facility] LABORATORYCLIA [id number] [place] [address] [place] CO2 (BldV) [Partial pressure] 44 mm[Hg] Normal 42-55 [facility] Comment on above: Order Comment: Speci men Type: VENOUS BLOOD SPECIMENOrdering Facility: [facility] Address: [address] [place] [address] Performed By: #### 2 4344-4 ####[facility] LABORATORYCLIA [id number] [place] [address] [place] CO2 adjusted to patient's actual temperature (BldV) [Partial pressure] Normal [facility] Comment on above: Order Comment: Speci men Type: VENOUS BLOOD SPECIMENOrdering Facility: [facility] Address: [address] [place] [address] Performed By: #### 2 4344-4 ####[facility] LABORATORYCLIA [id number] [place] [id number] [place] Glucose [Mass/Vol] 110 mg/dL High 60-105 [facility] Comment on above: Order Comment: Speci men Type: VENOUS BLOOD SPECIMENOrdering Facility: [facility] Address: [address] [place] [address] Performed By: #### 2 4344-4 ####[facility] LABORATORYCLIA [id number] [place] [id number] [place] HCO3 (Bld) [Moles/Vol] 31 mmol/L High 24-28 [facility] Comment on above: Order Comment: Speci men Type: VENOUS BLOOD SPECIMENOrdering Facility: [facility] Address: [address] [place] [address] Performed By: #### 2 4344-4 ####[facility] LABORATORYCLIA [id number] [place] [id number] [place] Hematocrit (Bld) [Volume fraction] 42.8 % Normal 39.0-51.0 [facility] Comment on above: Order Comment: Speci men Type: VENOUS BLOOD SPECIMENOrdering Facility: [facility] Address: [address] [place] [address] Performed By: #### 2 4344-4 ####[facility] LABORATORYCLIA [id number] [place] [address] [place] Hemoglobin (Bld) [Mass/Vol] 13.9 g/dL Normal 13.0-17.0 [facility] Comment on above: Order Comment: Speci men Type: VENOUS BLOOD SPECIMENOrdering Facility: [facility] Address: [address] [place] [address] Performed By: #### 2 4344-4 ####[facility] LABORATORYCLIA [id number] [place] [id number] [place] Lactate [Moles/Vol] 1.3 mmol/L Normal 0.5-2.2 [facility] Comment on above: Order Comment: Speci men Type: VENOUS BLOOD SPECIMENOrdering Facility: [facility] Address: [address] [place] [address] Performed By: #### 2 4344-4 ####[facility] LABORATORYCLIA [id number] [place] [id number] [place] Methemoglobin (Bld) [Mass fraction] 0.4 % Normal 0.0-1.5 [facility] Comment on above: Order Comment: Speci men Type: VENOUS BLOOD SPECIMENOrdering Facility: [facility] Address: [address] [place] [id number] Performed By: #### 2 4344-4 ####[facility] LABORATORYCLIA [id number] [place] [address] [place] O2 THERAPY RA=Room Air Normal [facility] Comment on above: Order Comment: Speci men Type: VENOUS BLOOD SPECIMENOrdering Facility: [facility] Address: [address] [place] [address] Performed By: #### 2 4344-4 ####[facility] LABORATORYCLIA [id number] [place] [id number] [place] Oxygen (BldV) [Partial pressure] 98 mm[Hg] High 35-45 [facility] Comment on above: Order Comment: Speci men Type: VENOUS BLOOD SPECIMENOrdering Facility: [facility] Address: [address] [place] [address] Performed By: #### 2 4344-4 ####[facility] LABORATORYCLIA [id number] [place] [address] [place] Oxygen adjusted to patient's actual temperature (BldV) [Partial pressure] Normal [facility] Comment on above: Order Comment: Speci men Type: VENOUS BLOOD SPECIMENOrdering Facility: [facility] Address: [address] [place] [address] Performed By: #### 2 4344-4 ####[facility] LABORATORYCLIA [id number] [place] [id number] [place] Oxygen saturation in Venous blood 100 % High 60-85 [facility] Comment on above: Order Comment: Speci men Type: VENOUS BLOOD SPECIMENOrdering Facility: [facility] Address: [address] [place], [place] [address] Performed By: #### 2 4344-4 ####[facility] LABORATORYCLIA [id number] [place] [id number] [place] Oxyhemoglobin (BldV) [Mass fraction] 96 % High 60-85 [facility] Comment on above: Order Comment: Speci men Type: VENOUS BLOOD SPECIMENOrdering Facility: [facility] Address: [address] [place] [address] Performed By: #### 2 4344-4 ####[facility] LABORATORYCLIA [id number] [place] [id number] [place] pH (BldV) 7.46 [pH] High 7.32-7.42 [facility] Comment on above: Order Comment: Speci men Type: VENOUS BLOOD SPECIMENOrdering Facility: [facility] Address: [address] [place] [address] Performed By: #### 2 4344-4 ####[facility] LABORATORYCLIA [id number] [place] [id number] [place] pH adjusted to patient's actual temperature (BldV) Normal [facility] Comment on above: Order Comment: Speci men Type: VENOUS BLOOD SPECIMENOrdering Facility: [facility] Address: [address] [place] [address] Performed By: #### 2 4344-4 ####[facility] LABORATORYCLIA [id number] [place] [id number] [place] Potassium [Moles/Vol] 3.7 mmol/L Normal 3.5-5.0 [facility] Comment on above: Order Comment: Speci men Type: VENOUS BLOOD SPECIMENOrdering Facility: [facility] Address: [address] [place] [address] Performed By: #### 2 4344-4 ####[facility] LABORATORYCLIA [id number] [place] [id number] [place] Sodium [Moles/Vol] 135 mmol/L Low 136-144 [facility] Comment on above: Order Comment: Speci men Type: VENOUS BLOOD SPECIMENOrdering Facility: [facility] Address: [address] [place] [address] Performed By: #### 2 4344-4 ####[facility] LABORATORYCLIA [id number] [place] [id number] [place] Magnesium SerPl-mCncon 12-26 Magnesium [Mass/Vol] 2.5 mg/dL High 1.7-2.3 [facility] Comment on above: Order Comment: Speci men Type: BLOOD SPECIMENOrdering Facility: [facility] Address: [address] [place] [address] Performed By: #### 2 4321-2, 2776-04, ####[facility] LABORATORYCLIA [id number] [place] [id number] [place] Phosphate SerPl-mCncon 12-26 Phosphate [Mass/Vol] 3.2 mg/dL Normal 2.7-4.8 [facility] Comment on above: Order Comment: Speci men Type: BLOOD SPECIMENOrdering Facility: [facility] Address: [address] [place] [address] Performed By: #### 2 4321-2, 2776-04, ####[facility] LABORATORYCLIA [id number] [place] [id number] [place] ALLIED HEALTHon 12-25-2024 ALLIED HEALTH Normal [facility] ARTERIAL BLOOD GASESon 12-25 Base excess Calc (Bld) [Moles/Vol] 8 mmol/L High 0-2 [facility] Comment on above: Order Comment: Speci men Type: ARTERIAL BLOOD SPECIMENOrdering Facility: [facility] Address: [address] [place] [address] Performed By: #### A LLBG ####[facility] LABORATORYCLIA [id number] [place] [id number] [place] Body temperature 98.6 [degF] Normal [facility] Comment on above: Order Comment: Speci men Type: ARTERIAL BLOOD SPECIMENOrdering Facility: [facility] Address: [address] [place] [address] Performed By: #### A LLBG ####[facility] LABORATORYCLIA [id number] [place] [id number] [place] Calcium.ionized (Bld) [Mass/Vol] 1.14 mmol/L Normal 1.08-1.30 [facility] Comment on above: Order Comment: Speci men Type: ARTERIAL BLOOD SPECIMENOrdering Facility: [facility] Address: [address] [place] [address] Performed By: #### A LLBG ####[facility] LABORATORYCLIA [id number] [place] [address] [place] Calcium.ionized adjusted to pH 7.4 (BldA) [Moles/Vol] 1.17 mmol/L Normal 1.08-1.30 [facility] Comment on above: Order Comment: Speci men Type: ARTERIAL BLOOD SPECIMENOrdering Facility: [facility] Address: [address] [place] [address] Performed By: #### A LLBG ####[facility] LABORATORYCLIA [id number] [place] [address] [place] Carboxyhemoglobin (BldA) [Mass fraction] 2.1 % High 0.0-2.0 [facility] Comment on above: Order Comment: Speci men Type: ARTERIAL BLOOD SPECIMENOrdering Facility: [facility] Address: [address] [place] [address] Result Comment: Carb oxyhemoglobin Reference Range for Smokers: 2.0-8.0% Performed By: #### A LLBG ####[facility] LABORATORYCLIA [id number] [place] [address] [place] Chloride [Moles/Vol] 94 mmol/L Low 97-105 [facility] Comment on above: Order Comment: Speci men Type: ARTERIAL BLOOD SPECIMENOrdering Facility: [facility] Address: [address] [place] [address] Performed By: #### A LLBG ####[facility] LABORATORYCLIA [id number] [place] [id number] [place] CO2 (Bld) [Partial pressure] 50 mm Hg High 36-46 [facility] Comment on above: Order Comment: Speci men Type: ARTERIAL BLOOD SPECIMENOrdering Facility: [facility] Address: [address] [place] [address] Performed By: #### A LLBG ####[facility] LABORATORYCLIA [id number] [place] [address] [place] FIO2 40 % Normal [facility] Comment on above: Order Comment: Speci men Type: ARTERIAL BLOOD SPECIMENOrdering Facility: [facility] Address: [address] [place] [address] Performed By: #### A LLBG ####[facility] LABORATORYCLIA [id number] [place] [id number] [place] Glucose [Mass/Vol] 163 mg/dL High 60-105 [facility] Comment on above: Order Comment: Speci men Type: ARTERIAL BLOOD SPECIMENOrdering Facility: [facility] Address: [address] [place] [address] Performed By: #### A LLBG ####[facility] LABORATORYCLIA [id number] [place] [id number] [place] HCO3 (Bld) [Moles/Vol] 33 mmol/L High 22-26 [facility] Comment on above: Order Comment: Speci men Type: ARTERIAL BLOOD SPECIMENOrdering Facility: [facility] Address: [address] [place] [address] Performed By: #### A LLBG ####[facility] LABORATORYCLIA [id number] [place] [address] [place] Hematocrit (Bld) [Volume fraction] 43.5 % Normal 39.0-51.0 [facility] Comment on above: Order Comment: Speci men Type: ARTERIAL BLOOD SPECIMENOrdering Facility: [facility] Address: [address] [place] [address] Performed By: #### A LLBG ####[facility] LABORATORYCLIA [id number] [place] [address] [place] Hemoglobin (Bld) [Mass/Vol] 14.2 g/dL Normal 13.0-17.0 [facility] Comment on above: Order Comment: Speci men Type: ARTERIAL BLOOD SPECIMENOrdering Facility: [facility] Address: [address] [place] [address] Performed By: #### A LLBG ####[facility]ORATORYCLIA [id number] [place] [address] [place] Lactate [Moles/Vol] 1.6 mmol/L Normal 0.5-2.2 [facility] Comment on above: Order Comment: Speci men Type: ARTERIAL BLOOD SPECIMENOrdering Facility: [facility] Address: [address] [place] [address] Performed By: #### A LLBG ####[facility] LABORATORYCLIA [id number] [place] [id number] [place] LITERS 50 Liters/min [facility] Comment on above: Order Comment: Speci men Type: ARTERIAL BLOOD SPECIMENOrdering Facility: [facility] Address: [address] [place] [address] Performed By: #### A LLBG ####[facility] LABORATORYCLIA [id number] [place] [address] [place] Methemoglobin (Bld) [Mass fraction] 0.5 % Normal 0.0-1.5 [facility] Comment on above: Order Comment: Speci men Type: ARTERIAL BLOOD SPECIMENOrdering Facility: [facility] Address: [address] [place] [address] Performed By: #### A LLBG ####[facility]ORATORYCLIA [id number] [place] [address] [place] O2 THERAPY Hi-Flow Nasal Cannula-Heated [facility] Comment on above: Order Comment: Speci men Type: ARTERIAL BLOOD SPECIMENOrdering Facility: [facility] Address: [address] [place] [address] Performed By: #### A LLBG ####[facility]ORATORYCLIA [id number] [place] [address] [place] Oxygen (Bld) [Partial pressure] 106 mm Hg High 85-95 [facility] Comment on above: Order Comment: Speci men Type: ARTERIAL BLOOD SPECIMENOrdering Facility: [facility] Address: [address] [place] [address] Performed By: #### A LLBG ####[facility]ORATORYCLIA [id number] [place] [address] [place] Oxyhemoglobin (BldA) [Mass fraction] 96 % Normal 95-98 [facility] Comment on above: Order Comment: Speci men Type: ARTERIAL BLOOD SPECIMENOrdering Facility: [facility] Address: [address] [place] [address] Performed By: #### A LLBG ####[facility]ORATORYCLIA [id number] [place] [id number] [place] pH (Bld) 7.44 [pH] Normal 7.35-7.45 [facility] Comment on above: Order Comment: Speci men Type: ARTERIAL BLOOD SPECIMENOrdering Facility: [facility] Address: [address] [place] [address] Performed By: #### A LLBG ####[facility]ORATORYCLIA [id number] [place] [address] [place] PO2 / FIO2 RATIO 265 mmHg Low >300 [facility] Comment on above: Order Comment: Speci men Type: ARTERIAL BLOOD SPECIMENOrdering Facility: [facility] Address: [address] [place] [address] Performed By: #### A LLBG ####[facility]ORATORYCLIA [id number] [place] [address] [place] Potassium [Moles/Vol] 4.2 mmol/L Normal 3.5-5.0 [facility] Comment on above: Order Comment: Speci men Type: ARTERIAL BLOOD SPECIMENOrdering Facility: [facility] Address: [address] [place] [address] Performed By: #### A LLBG ####[facility]ORATORYCLIA [id number] [place] [id number] [place] Sodium [Moles/Vol] 133 mmol/L Low 136-144 [facility] Comment on above: Order Comment: Speci men Type: ARTERIAL BLOOD SPECIMENOrdering Facility: [facility] Address: [address] [place] [address] Performed By: #### A LLBG ####[facility] LABORATORYCLIA [id number] [place] [id number] [place] Albumin SerPl-mCncon 09-21-2 025 Albumin [Mass/Vol] 3.7 g/dL Low 3.9-4.9 [facility] Comment on above: Order Comment: Speci men Type: BLOOD SPECIMENOrdering Facility: [facility] Address: [address] [place] [address] Performed By: #### 1 9123-9, 2777-1, 00137-7, 1751-7 ####[facility] LABORATORYCLIA [id number] [place] [id number] [place] Ammonia Plas-sCncon 12-26-19 25 Ammonia (P) [Moles/Vol] 13 umol/L Low 16-60 [facility] Comment on above: Order Comment: Speci men Type: BLOOD SPECIMENOrdering Facility: [facility] [facility] Address: [address] [place] [address] Performed By: #### 1 6362-6 ####[facility] LABORATORYCLIA [id number] [place] [id number] [place] Basic metabolic 2000 panelon 12-25-2024 Anion gap [Moles/Vol] 8 mmol/L Normal 8-15 [facility] Comment on above: Order Comment: Speci men Type: BLOOD SPECIMENOrdering Facility: [facility] Address: [address] [place] [address] Performed By: #### 2 4321-2 ####[facility] LABORATORYCLIA [id number] [place] [id number] [place] Calcium [Mass/Vol] 9.0 mg/dL Normal 8.5-10.2 [facility] Comment on above: Order Comment: Speci men Type: BLOOD SPECIMENOrdering Facility: [facility] Address: [address] [place] [address] Performed By: #### 2 4321-2 ####RU[facility] LABORATORYCLIA [id number] [place] [id number] [place] Chloride [Moles/Vol] 95 mmol/L Low 98-107 [facility] Comment on above: Order Comment: Speci men Type: BLOOD SPECIMENOrdering Facility: [facility] Address: [address] [place] [address] Performed By: #### 2 4321-2 ####[facility] LABORATORYCLIA [id number] [place] [address] [place] CO2 [Moles/Vol] 33 mmol/L High 22-30 [facility] Comment on above: Order Comment: Speci men Type: BLOOD SPECIMENOrdering Facility: [facility] Address: [address] [place] [address] Performed By: #### 2 4321-2 ####[facility] LABORATORYCLIA [id number] [address] Performed By: #### 1 9123-9, 2777-1, 50841-6, 1751-7 ####[facility] LABORATORYCLIA [id number] [address] STATES OF [facility] Creatinine [Mass/Vol] 1.17 mg/dL Normal 0.73-1.22 [facility] Comment on above: Order Comment: Speci men Type: BLOOD SPECIMENOrdering Facility: [facility] Address: [address] [place] [address] Performed By: #### 2 4321-2 ####[facility] LABORATORYCLIA [id number] [address] eGFRcr SerPlBld CKD-EPI 2020 70 mL/min/1.73m??? Normal >=60 [facility] Comment on above: Order Comment: Speci [facility] Type: BLOOD SPECIMENOrdering Facility: [facility] Address: [address] [place] [address] Result Comment: Matilda mated Glomerular Filtration Rate (eGFR) is calculated using the 2020 CKD-EPI creatinine equation. This equation utilizes serum creatinine, sex, and age as parameters. The creatinine assay has traceable calibration to isotope dilution-mass spectrometry. Refer to KDIGO guidelines for clinical interpretation. In patients with unstable renal function, e.g. those with acute kidney injury, the eGFR may not accurately reflect actual GFR. Performed By: #### 2 4321-2 ####[facility] LABORATORYCLIA [id number] [place] [id number] [place] Glucose [Mass/Vol] 126 mg/dL High 74-99 [facility] Comment on above: Order Comment: Speci men Type: BLOOD SPECIMENOrdering Facility: [facility] Address: [address] [place] [address] Result Comment: The [place] Diabetes [employer] (ADA) provides guidance for cutoff values for fasting glucose and random glucose. The ADA defines fasting as no caloric intake for at least 8 hours. Fasting plasma glucose results between 100 to 125 mg/dL indicate increased risk for diabetes (prediabetes).Fasting plasma glucose results greater than or equal to 126 mg/dL meet the criteria for diagnosis of diabetes. In the absence of unequivocal hyperglycemia, results should be confirmed by repeat testing. In a patient with classic symptoms of hyperglycemia or hyperglycemic crisis, random plasma glucose results greater than or equal to 200 mg/dL meet the criteria for diagnosis of diabetes.Reference: Standards of Medical Care in Diabetes 2016, [place] [employer]. Diabetes Care. 2016.39(Suppl 1). Performed By: #### 2 4321-2 ####[facility] LABORATORYCLIA [id number] [place] [address] [place] Potassium [Moles/Vol] 3.8 mmol/L Normal 3.7-5.1 [facility] Comment on above: Order Comment: Yadii cliff Type: BLOOD SPECIMENOrdering Facility: [facility] Address: [address] [place] [address] Performed By: #### 2 4321-2 ####[facility] LABORATORYCLIA [id number] [place] [id number] [place] Sodium [Moles/Vol] 136 mmol/L Normal 136-144 [facility] Comment on above: Order Comment: Speci men Type: BLOOD SPECIMENOrdering Facility: [facility] Address: [address] [place] [address] Performed By: #### 2 4321-2 ####[facility] LABORATORYCLIA [id number] [place] [id number] [place] Urea nitrogen [Mass/Vol] 32 mg/dL High 9-24 [facility] Comment on above: Order Comment: Speci men Type: BLOOD SPECIMENOrdering Facility: [facility] Address: [address] [place] [address] Performed By: #### 2 4321-2 ####RU[facility] LABORATORYCLIA [id number] [place] [address] [place] Anion gap [Moles/Vol] 9 mmol/L Normal 8-15 [facility] Comment on above: Order Comment: Speci men Type: BLOOD SPECIMENOrdering Facility: [facility] Address: [address] [place] [address] Performed By: #### 1 9123-9, 2777-1, 44599-5, 1750-10 ####[facility] LABORATORYCLIA [id number] [place] [id number] [place] Calcium [Mass/Vol] 9.1 mg/dL Normal 8.5-10.2 [facility] Comment on above: Order Comment: Speci men Type: BLOOD SPECIMENOrdering Facility: [facility] Address: [address] [place] [address] Performed By: #### 1 9123-9, 27771, , 1750-10 ####RU[facility] LABORATORYCLIA [id number] [place] [id number] [place] Chloride [Moles/Vol] 88 mmol/L Low 98-107 [facility] Comment on above: Order Comment: Speci men Type: BLOOD SPECIMENOrdering Facility: [facility] Address: [address] [place] [address] Performed By: #### 1 9123-9, 27710-04, , 1750-10 ####[facility] LABORATORYCLIA [id number] [place] [id number] [place] Creatinine [Mass/Vol] 1.03 mg/dL Normal 0.73-1.22 [facility] Comment on above: Order Comment: Speci men Type: BLOOD SPECIMENOrdering Facility: [facility] Address: [address] [place] [address] Performed By: #### 1 9123-9, 2777-1, 67722-5, 1750-10 ####RU[facility] LABORATORYCLIA [id number] [place] [address] [place] eGFRcr SerPlBld CKD-EPI 2020 81 mL/min/1.73m??? Normal >=60 [facility] Comment on above: Order Comment: Concetta coronado Type: BLOOD SPECIMENOrdering Facility: [facility] Address: [address] [place] [address] Result Comment: Matilda mated Glomerular Filtration Rate (eGFR) is calculated using the 2020 CKD-EPI creatinine equation. This equation utilizes serum creatinine, sex, and age as parameters. The creatinine assay has traceable calibration to isotope dilution-mass spectrometry. Refer to KDIGO guidelines for clinical interpretation. In patients with unstable renal function, e.g. those with acute kidney injury, the eGFR may not accurately reflect actual GFR. Performed By: #### 1 9123-9, 2777-1, 84706-9, 1750-10 ####[facility] LABORATORYCLIA [id number] [place] [id number] [place] Glucose [Mass/Vol] 156 mg/dL High 74-99 [facility] Comment on above: Order Comment: Concetta coronado Type: BLOOD SPECIMENOrdering Facility: [facility] Address: [address] [place] [address] Result Comment: The [place] Diabetes Association (ADA) provides guidance for cutoff values for fasting glucose and random glucose. The ADA defines fasting as no caloric intake for at least 8 hours. Fasting plasma glucose results between 100 to 125 mg/dL indicate increased risk for diabetes (prediabetes).Fasting plasma glucose results greater than or equal to 126 mg/dL meet the criteria for diagnosis of diabetes. In the absence of unequivocal hyperglycemia, results should be confirmed by repeat testing. In a patient with classic symptoms of hyperglycemia or hyperglycemic crisis, random plasma glucose results greater than or equal to 200 mg/dL meet the criteria for diagnosis of diabetes.Reference: Standards of Medical Care in Diabetes 2016, [place] [employer]. Diabetes Care. 2016.39(Suppl 1). Performed By: #### 1 9123-9, 2777-1, 83968-3, 1750-10 ####[facility] LABORATORYCLIA [id number] [place] [id number] [place] Potassium [Moles/Vol] 4.3 mmol/L Normal 3.7-5.1 [facility] Comment on above: Order Comment: Speci men Type: BLOOD SPECIMENOrdering Facility: [facility] Address: [address] [place] [address] Performed By: #### 1 9123-9, 2777-1, 82334-7, 1750-10 ####RU[facility] LABORATORYCLIA [id number] [place] [id number] [place] Sodium [Moles/Vol] 130 mmol/L Low 136-144 [facility] Comment on above: Order Comment: Speci men Type: BLOOD SPECIMENOrdering Facility: [facility] Address: [address] [place] [address] Performed By: #### 1 9123-9, 2777-1, 76320-7, 1750-10 ####[facility] LABORATORYCLIA [id number] [place] [address] [place] Urea nitrogen [Mass/Vol] 33 mg/dL High 9-24 [facility] Comment on above: Order Comment: Speci men Type: BLOOD SPECIMENOrdering Facility: [facility] Address: [address] [place] [address] Performed By: #### 1 9123-9, 2777-1, 77104-1, 1750-10 ####[facility] LABORATORYCLIA [id number] [place] [address] [place] CBC panel Auto (Bld)on 12-25 Erythrocyte distribution width (RBC) [Ratio] 16.4 % High 11.5-15.0 [facility] Comment on above: Order Comment: Speci men Type: BLOOD SPECIMENOrdering Facility: [facility] Address: [address] [place] [address] Performed By: #### 5 8410-2 ####[facility] LABORATORYCLIA [id number] [address] [place] Hematocrit (Bld) [Volume fraction] 42.7 % Normal 39.0-51.0 [facility] Comment on above: Order Comment: Speci men Type: BLOOD SPECIMENOrdering Facility: [facility] Address: [address] [place] [address] Performed By: #### 5 8410-2 ####RU[facility] LABORATORYCLIA [id number] [place] [address] [place] Hemoglobin (Bld) [Mass/Vol] 13.7 g/dL Normal 13.0-17.0 [facility] Comment on above: Order Comment: Speci men Type: BLOOD SPECIMENOrdering Facility: [facility] Address: [address] [place] [address] Performed By: #### 5 8410-2 ####[facility] LABORATORYCLIA [id number] [address] MCH (RBC) [Entitic mass] 28.2 pg Normal 26.0-34.0 [facility] Comment on above: Order Comment: Speci men Type: BLOOD SPECIMENOrdering Facility: [facility] Address: [address] [place] [address] Performed By: #### 5 8410-2 ####RU[facility] LABORATORYCLIA [id number] [address] STATES [facility] MCHC (RBC) [Mass/Vol] 32.1 g/dL Normal 30.5-36.0 [facility] Comment on above: Order Comment: Speci men Type: BLOOD SPECIMENOrdering Facility: [facility] Address: [address] [place] [address] Performed By: #### 5 8410-2 ####RU[facility] LABORATORYCLIA [id number] [address] [place] MCV (RBC) [Entitic vol] 87.9 fL Normal 80.0-100.0 [facility] Comment on above: Order Comment: Speci men Type: BLOOD SPECIMENOrdering Facility: [facility] Address: [address] [place] [address] Performed By: #### 5 8410-2 ####[facility] LABORATORYCLIA [id number] [address] [place] Nucleated RBC (Bld) [#/Vol] 10*3/uL Normal <0.01 [facility] Comment on above: Order Comment: Speci men Type: BLOOD SPECIMENOrdering Facility: [facility] Address: [address] [place] [address] Performed By: #### 5 8410-2 ####RU[facility] LABORATORYCLIA [id number] [place] [id number] [place] Platelet mean volume (Bld) [Entitic vol] 8.8 fL Low 9.0-12.7 [facility] Comment on above: Order Comment: Speci men Type: BLOOD SPECIMENOrdering Facility: [facility] Address: [address] [place] [address] Performed By: #### 5 8410-2 ####[facility] LABORATORYCLIA [id number] [place] [id number] [place] Platelets (Bld) [#/Vol] 268 10*3/uL Normal 150-400 [facility] Comment on above: Order Comment: Speci men Type: BLOOD SPECIMENOrdering Facility: [facility] Address: [address] [place] [address] Performed By: #### 5 8410-2 ####[facility] LABORATORYCLIA [id number] [place] [id number] [place] RBC (Bld) [#/Vol] 4.86 10*6/uL Normal 4.20-6.00 [facility] Comment on above: Order Comment: Speci men Type: BLOOD SPECIMENOrdering Facility: [facility] Address: [address] [place] [address] Performed By: #### 5 8410-2 ####[facility] LABORATORYCLIA [id number] [place] [id number] [place] WBC (Bld) [#/Vol] 9.46 10*3/uL Normal 3.70-11.00 [facility] Comment on above: Order Comment: Speci men Type: BLOOD SPECIMENOrdering Facility: [facility] Address: [address] [place] [address] Performed By: #### 5 8410-2 ####[facility] LABORATORYCLIA [id number] [place] [address] [place] CONSULT PROGon 12-25-2024 CONSULT PROG Normal [facility] Culture, Anaerobic Any Sourc sandra 12-25-2024 CUAN No growth in 5 days. Normal [facility] Comment on above: Performed By: #### M 100.3000, M100.4001, M100.2000 ####[facility] [id number] [place], [place], [id number] ECG COMPLETEon 12-25-2024 ECG COMPLETE Normal [facility] HISTORY PHYSICALon HISTORY PHYSICAL Normal [facility] Lactate (Bld) [Moles/Vol]on 12-25-2024 Lactate [Moles/Vol] 3.0 mmol/L High 0.5-2.2 [facility] Comment on above: Order Comment: Speci men Type: BLOOD SPECIMENOrdering Facility: [facility] Address: [address] [place] [address] Performed By: #### 3 2693-4 ####[facility] LABORATORYCLIA [id number] [place] [address] [place] Magnesium SerPl-mCncon 12-25 Magnesium [Mass/Vol] 1.9 mg/dL Normal 1.7-2.3 [facility] Comment on above: Order Comment: Speci men Type: BLOOD SPECIMENOrdering Facility: [facility] Address: [address] [place] [address] Performed By: #### 1 9123-9, 2777-1, 93618-7, 1751-7 ####[facility] LABORATORYCLIA [id number] [place] [address] [place] Phosphate SerPl-mCncon 12-25 Phosphate [Mass/Vol] 2.9 mg/dL Normal 2.7-4.8 [facility] Comment on above: Order Comment: Speci men Type: BLOOD SPECIMENOrdering Facility: [facility] Address: [address] [place] [address] Performed By: #### 1 9123-9, 2777-1, 98464-1, 1751-7 ####[facility] LABORATORYCLIA [id number] [place] [id number] [place] STAPHYLOCOCCUS AUREUS AND MR SA SCREEN, PCR, NASALon 12-25-2024 S. aureus and MRSA panel HAYDER+probe (Nose) Methicillin-SUSCEPTIBLE Staphylococcus aureus Detected Abnormal Not Detected [facility] Comment on above: Order Comment: Speci men Type: SWABOrdering Facility: [facility] Address: [address] [place] [address] Performed By: #### S APCR ####[facility] LABCLIA [id number] [place] [address] [place] THERAPY NTon 12-25-2024 THERAPY NT Normal [facility] TYPE + SCREENon 12-25-2024 ABO A [facility] Comment on above: Order Comment: Speci men Type: BLOOD SPECIMENOrdering Facility: [facility] Address: [address] [place] [address] Performed By: #### T SCR ####[facility] BLOOD BANKCLIA [id number] [place] [address] [place] Rh Nom (Bld) Positive [facility] Comment on above: Order Comment: Speci men Type: BLOOD SPECIMENOrdering Facility: [facility] Address: [address] [place] [address] Performed By: #### T SCR ####[facility]LOOD BANKCLIA [id number] [place] [id number] [place] TYPE AND SCREEN EXPIRATION 12/28/2024 23:59 Normal [facility] Comment on above: Order Comment: Speci men Type: BLOOD SPECIMENOrdering Facility: [facility] Address: [address] [place] [address] Performed By: #### T SCR ####[facility]LOOD BANKCLIA [id number] [place] [id number] [place] XR ABDOMEN 1V SUPINEon 12-25 XR ABDOMEN 1V SUPINE Normal [facility] XR CHEST 1V FRONTALon 2024 XR CHEST 1V FRONTAL Normal [facility] XR CHEST 1V FRONTAL PORTon 0 12-25-2024 XR CHEST 1V FRONTAL PORT Normal [facility] ALLIED HEALTHon 12-24-2024 ALLIED HEALTH Normal [facility] ARTERIAL BLOOD GASESon 12-24 Base excess Calc (Bld) [Moles/Vol] 8 mmol/L High 0-2 [facility] Comment on above: Order Comment: Speci men Type: ARTERIAL BLOOD SPECIMENOrdering Facility: [facility] Address: [address] [place] [address] Performed By: #### A LLBG ####[facility] LABORATORYCLIA [id number] [place] [address] [place] Body temperature 98.6 [degF] Normal [facility] Comment on above: Order Comment: Speci men Type: ARTERIAL BLOOD SPECIMENOrdering Facility: [facility] Address: [address] [place] [address] Performed By: #### A LLBG ####[facility] LABORATORYCLIA [id number] [place] [address] [place] Calcium.ionized (Bld) [Mass/Vol] 1.12 mmol/L Normal 1.08-1.30 [facility] Comment on above: Order Comment: Speci men Type: ARTERIAL BLOOD SPECIMENOrdering Facility: [facility] Address: [address] [place] [address] Performed By: #### A LLBG ####[facility] LABORATORYCLIA [id number] [place] [address] [place] Calcium.ionized adjusted to pH 7.4 (BldA) [Moles/Vol] 1.14 mmol/L Normal 1.08-1.30 [facility] Comment on above: Order Comment: Speci men Type: ARTERIAL BLOOD SPECIMENOrdering Facility: [facility] Address: [address] [place] [address] Performed By: #### A LLBG ####[facility] LABORATORYCLIA [id number] [place] [id number] [place] Carboxyhemoglobin (BldA) [Mass fraction] 1.7 % Normal 0.0-2.0 [facility] Comment on above: Order Comment: Speci men Type: ARTERIAL BLOOD SPECIMENOrdering Facility: [facility] Address: [address] [place] [address] Result Comment: Carb oxyhemoglobin Reference Range for Smokers: 2.0-8.0% Performed By: #### A LLBG ####[facility] LABORATORYCLIA [id number] [place] [address] [place] Chloride [Moles/Vol] 93 mmol/L Low 97-105 [facility] Comment on above: Order Comment: Speci men Type: ARTERIAL BLOOD SPECIMENOrdering Facility: [facility] Address: [address] [place] [address] Performed By: #### A LLBG ####[facility] LABORATORYCLIA [id number] [place] [address] [place] CO2 (Bld) [Partial pressure] 51 mm Hg High 36-46 [facility] Comment on above: Order Comment: Speci men Type: ARTERIAL BLOOD SPECIMENOrdering Facility: [facility] Address: [address] [place] [address] Performed By: #### A LLBG ####[facility] LABORATORYCLIA [id number] [place] [address] [place] Glucose [Mass/Vol] 178 mg/dL High 60-105 [facility] Comment on above: Order Comment: Speci men Type: ARTERIAL BLOOD SPECIMENOrdering Facility: [facility] Address: [address] [place] [address] Performed By: #### A LLBG ####[facility] LABORATORYCLIA [id number] [place] [address] [place] HCO3 (Bld) [Moles/Vol] 33 mmol/L High 22-26 [facility] Comment on above: Order Comment: Speci men Type: ARTERIAL BLOOD SPECIMENOrdering Facility: [facility] Address: [address] [place] [address] Performed By: #### A LLBG ####[facility] LABORATORYCLIA [id number] [place] [address] [place] Hematocrit (Bld) [Volume fraction] 42.7 % Normal 39.0-51.0 [facility] Comment on above: Order Comment: Speci men Type: ARTERIAL BLOOD SPECIMENOrdering Facility: [facility] Address: [address] [place] [address] Performed By: #### A LLBG ####[facility] LABORATORYCLIA [id number] [address] OF [place] Hemoglobin (Bld) [Mass/Vol] 13.9 g/dL Normal 13.0-17.0 [facility] Comment on above: Order Comment: Speci men Type: ARTERIAL BLOOD SPECIMENOrdering Facility: [facility] Address: [address] [place] [address] Performed By: #### A LLBG ####[facility] LABORATORYCLIA [id number] [address] [place] Lactate [Moles/Vol] 1.5 mmol/L Normal 0.5-2.2 [facility] Comment on above: Order Comment: Speci men Type: ARTERIAL BLOOD SPECIMENOrdering Facility: [facility] Address: [address] [place] [address] Performed By: #### A LLBG ####[facility] LABORATORYCLIA [id number] [address] STATES [facility] LITERS 2 Liters/min Normal [facility] Comment on above: Order Comment: Speci men Type: ARTERIAL BLOOD SPECIMENOrdering Facility: [facility] Address: [address] [place] [address] Performed By: #### A LLBG ####[facility] LABORATORYCLIA [id number] [address] [place] Methemoglobin (Bld) [Mass fraction] 0.2 % Normal 0.0-1.5 [facility] Comment on above: Order Comment: Speci men Type: ARTERIAL BLOOD SPECIMENOrdering Facility: [facility] Address: [address] [place] [address] Performed By: #### A LLBG ####[facility] LABORATORYCLIA [id number] [address] [place] O2 THERAPY NC = Nasal Cannula Normal [facility] Comment on above: Order Comment: Speci men Type: ARTERIAL BLOOD SPECIMENOrdering Facility: [facility] Address: [address] [place] [address] Performed By: #### A LLBG ####[facility] LABORATORYCLIA [id number] [address] OF [place] Oxygen (Bld) [Partial pressure] 117 mm Hg High 85-95 [facility] Comment on above: Order Comment: Speci men Type: ARTERIAL BLOOD SPECIMENOrdering Facility: [facility] Address: [address] [place] [address] Performed By: #### A LLBG ####[facility] LABORATORYCLIA [id number] [address] Oxyhemoglobin (BldA) [Mass fraction] 97 % Normal 95-98 [facility] Comment on above: Order Comment: Speci men Type: ARTERIAL BLOOD SPECIMENOrdering Facility: [facility] Address: [address] [place] [address] Performed By: #### A LLBG ####[facility] LABORATORYCLIA [id number] [place] [address] [place] pH (Bld) 7.44 [pH] Normal 7.35-7.45 [facility] Comment on above: Order Comment: Speci men Type: ARTERIAL BLOOD SPECIMENOrdering Facility: [facility] Address: [address] [place] [address] Performed By: #### A LLBG ####[facility] LABORATORYCLIA [id number] [place] [address] [place] Potassium [Moles/Vol] 4.3 mmol/L Normal 3.5-5.0 [facility] Comment on above: Order Comment: Speci men Type: ARTERIAL BLOOD SPECIMENOrdering Facility: [facility] Address: [address] [place] [address] Performed By: #### A LLBG ####[facility]ORATORYCLIA [id number] [place] [address] [place] Sodium [Moles/Vol] 132 mmol/L Low 136-144 [facility] Comment on above: Order Comment: Speci men Type: ARTERIAL BLOOD SPECIMENOrdering Facility: [facility] Address: [address] [place] [address] Performed By: #### A LLBG ####[facility]ORATORYCLIA [id number] [place] [address] [place] CBC W Auto Differential pane l (Bld)on 12-24-2024 Basophils (Bld) [#/Vol] 0.03 10*3/uL Normal <0.11 [facility] Comment on above: Order Comment: Speci men Type: BLOOD SPECIMENOrdering Facility: [facility] Address: [address] [place] [address] Performed By: #### 5 7021-8 ####[facility] LABORATORYCLIA [id number] [place] [address] [place] Basophils/100 WBC (Bld) 0.3 % Normal [facility] Comment on above: Order Comment: Speci men Type: BLOOD SPECIMENOrdering Facility: [facility] Address: [address] [place] [address] Performed By: #### 5 7021-8 ####[facility]ORATORYCLIA [id number] [place] [address] [place] Differential cell count method Nom (Bld) Auto Normal [facility] Comment on above: Order Comment: Speci men Type: BLOOD SPECIMENOrdering Facility: [facility] Address: [address] [place] [address] Performed By: #### 5 7021-8 ####[facility]ORATORYCLIA [id number] [place] [address] [place] Eosinophils (Bld) [#/Vol] 0.95 10*3/uL High <0.46 [facility] Comment on above: Order Comment: Speci men Type: BLOOD SPECIMENOrdering Facility: [facility] Address: [address] [place] [address] Performed By: #### 5 7021-8 ####[facility] LABORATORYCLIA [id number] [address] [place] Eosinophils/100 WBC (Bld) 10.9 % Normal [facility] Comment on above: Order Comment: Speci men Type: BLOOD SPECIMENOrdering Facility: [facility] Address: [address] [place] [address] Performed By: #### 5 7021-8 ####[facility]ORATORYCLIA [id number] [address] [place] Erythrocyte distribution width (RBC) [Ratio] 16.3 % High 11.5-15.0 [facility] Comment on above: Order Comment: Speci men Type: BLOOD SPECIMENOrdering Facility: [facility] Address: [address] [place] [address] Performed By: #### 5 7021-8 ####[facility]ORATORYCLIA [id number] [address] [place] Hematocrit (Bld) [Volume fraction] 43.8 % Normal 39.0-51.0 [facility] Comment on above: Order Comment: Speci men Type: BLOOD SPECIMENOrdering Facility: [facility] Address: [address] [place] [address] Performed By: #### 5 7021-8 ####[facility]ORATORYCLIA [id number] [address] [place] Hemoglobin (Bld) [Mass/Vol] 13.9 g/dL Normal 13.0-17.0 [facility] Comment on above: Order Comment: Speci men Type: BLOOD SPECIMENOrdering Facility: [facility] Address: [address] [place] [address] Performed By: #### 5 7021-8 ####[facility]ORATORYCLIA [id number] [place] [address] [place] Immature granulocytes (Bld) [#/Vol] 0.04 10*3/uL Normal <0.10 [facility] Comment on above: Order Comment: Speci men Type: BLOOD SPECIMENOrdering Facility: [facility] Address: [address] [place] [address] Performed By: #### 5 7021-8 ####[facility] LABORATORYCLIA [id number] [place] [id number] [place] Immature granulocytes/100 WBC (Bld) 0.5 % Normal [facility] Comment on above: Order Comment: Speci men Type: BLOOD SPECIMENOrdering Facility: [facility] Address: [address] [place] [address] Performed By: #### 5 7021-8 ####[facility] LABORATORYCLIA [id number] [place] [address] [place] Lymphocytes (Bld) [#/Vol] 1.32 10*3/uL Normal 1.00-4.00 [facility] Comment on above: Order Comment: Speci men Type: BLOOD SPECIMENOrdering Facility: [facility] Address: [address] [place] [address] Performed By: #### 5 7021-8 ####[facility] LABORATORYCLIA [id number] [place] [address] [place] Lymphocytes/100 WBC (Bld) 15.2 % Normal [facility] Comment on above: Order Comment: Speci men Type: BLOOD SPECIMENOrdering Facility: [facility] Address: [address] [place] [address] Performed By: #### 5 7021-8 ####[facility] LABORATORYCLIA [id number] [place] [address] [place] MCH (RBC) [Entitic mass] 28.3 pg Normal 26.0-34.0 [facility] Comment on above: Order Comment: Speci men Type: BLOOD SPECIMENOrdering Facility: [facility] Address: [address] [place] [address] Performed By: #### 5 7021-8 ####[facility]ORATORYCLIA [id number] [place] [address] [place] MCHC (RBC) [Mass/Vol] 31.7 g/dL Normal 30.5-36.0 [facility] Comment on above: Order Comment: Speci men Type: BLOOD SPECIMENOrdering Facility: [facility] Address: [address] [place] [address] Performed By: #### 5 7021-8 ####[facility] LABORATORYCLIA [id number] [place] [id number] [place] MCV (RBC) [Entitic vol] 89.2 fL Normal 80.0-100.0 [facility] Comment on above: Order Comment: Speci men Type: BLOOD SPECIMENOrdering Facility: [facility] Address: [address] [place] [address] Performed By: #### 5 7021-8 ####[facility] LABORATORYCLIA [id number] [place] [address] [place] Monocytes (Bld) [#/Vol] 0.63 10*3/uL Normal <0.87 [facility] Comment on above: Order Comment: Speci men Type: BLOOD SPECIMENOrdering Facility: [facility] Address: [address] [place] [address] Performed By: #### 5 7021-8 ####[facility] LABORATORYCLIA [id number] [place] [address] [place] Monocytes/100 WBC (Bld) 7.2 % Normal [facility] Comment on above: Order Comment: Speci men Type: BLOOD SPECIMENOrdering Facility: [facility] Address: [address] [place] [address] Performed By: #### 5 7021-8 ####[facility] LABORATORYCLIA [id number] [place] [id number] [place] Neutrophils (Bld) [#/Vol] 5.73 10*3/uL Normal 1.45-7.50 [facility] Comment on above: Order Comment: Speci men Type: BLOOD SPECIMENOrdering Facility: [facility] Address: [address] [place] [address] Performed By: #### 5 7021-8 ####[facility] LABORATORYCLIA [id number] [place] [address] [place] Neutrophils/100 WBC (Bld) 65.9 % Normal [facility] Comment on above: Order Comment: Speci men Type: BLOOD SPECIMENOrdering Facility: [facility] Address: [address] [place] [address] Performed By: #### 5 7021-8 ####[facility]ATORYCLIA [id number] [place] [id number] [place] Nucleated RBC (Bld) [#/Vol] 10*3/uL Normal <0.01 [facility] Comment on above: Order Comment: Speci men Type: BLOOD SPECIMENOrdering Facility: [facility] Address: [address] [place] [address] Performed By: #### 5 7021-8 ####[facility]ORATORYCLIA [id number] [place] [id number] [place] Nucleated RBC/100 WBC (Bld) [Ratio] 0.0 /100 WBC Normal [facility] Comment on above: Order Comment: Speci men Type: BLOOD SPECIMENOrdering Facility: [facility] Address: [address] [place] [address] Performed By: #### 5 7021-8 ####[facility]ATORYCLIA [id number] [place] [id number] [place] Platelet mean volume (Bld) [Entitic vol] 9.1 fL Normal 9.0-12.7 [facility] Comment on above: Order Comment: Speci men Type: BLOOD SPECIMENOrdering Facility: [facility] Address: [address] [place] [address] Performed By: #### 5 7021-8 ####[facility]ATORYCLIA [id number] [place] [id number] [place] Platelets (Bld) [#/Vol] 267 10*3/uL Normal 150-400 [facility] Comment on above: Order Comment: Speci men Type: BLOOD SPECIMENOrdering Facility: [facility] Address: [address] [place] [address] Performed By: #### 5 7021-8 ####[facility]ORATORYCLIA [id number] [place] [id number] [place] RBC (Bld) [#/Vol] 4.91 10*6/uL Normal 4.20-6.00 [facility] Comment on above: Order Comment: Speci men Type: BLOOD SPECIMENOrdering Facility: [facility] Address: [address] [place] [address] Performed By: #### 5 7021-8 ####[facility]ORATORYCLIA [id number] [place] [id number] [place] WBC (Bld) [#/Vol] 8.70 10*3/uL Normal 3.70-11.00 [facility] Comment on above: Order Comment: Speci men Type: BLOOD SPECIMENOrdering Facility: [facility] Address: [address] [place] [address] Performed By: #### 5 7021-8 ####[facility]ORATORYCLIA [id number] [place] [id number] [place] CONSULT PROGon 12-24-2024 CONSULT PROG [facility] CONSULT PROG Normal [facility] CONSULT PROG Normal [facility] CONSULT PROG Normal [facility] Culture, Blood (WB)on 2024 CUB Blood cultures x2, f rom two different sites No growth in 5 days. Normal [facility] Comment on above: Performed By: #### M 200.1000 ####[facility] [address] [place], [place], [address] ECG COMPLETEon 12-24-2024 ECG COMPLETE Normal [facility] Gas and Carbon monoxide pane l (BldV)on 12-24-2024 Base excess Calc (BldV) [Moles/Vol] 11 mmol/L High 0-2 [facility] Comment on above: Order Comment: Speci men Type: VENOUS BLOOD SPECIMENOrdering Facility: [facility] Address: [address] [place] [id number] Performed By: #### 2 4344-4 ####[facility]ORATORYCLIA [id number] [place] [id number] [place] Body temperature 97.88 [degF] Normal [facility] Comment on above: Order Comment: Speci men Type: VENOUS BLOOD SPECIMENOrdering Facility: [facility] Address: [address] [place] [address] Performed By: #### 2 4344-4 ####[facility]ORATORYCLIA [id number] [place] [address] [place] Calcium.ionized (Bld) [Mass/Vol] 1.06 mmol/L Low 1.08-1.30 [facility] Comment on above: Order Comment: Speci men Type: VENOUS BLOOD SPECIMENOrdering Facility: [facility] Address: [address] [place] [address] Performed By: #### 2 4344-4 ####[facility]ATORYCLIA [id number] [place] [address] [place] Calcium.ionized adjusted to pH 7.4 (BldA) [Moles/Vol] 1.03 mmol/L Low 1.08-1.30 [facility] Comment on above: Order Comment: Speci men Type: VENOUS BLOOD SPECIMENOrdering Facility: [facility] Address: [address] [place] [address] Performed By: #### 2 4344-4 ####[facility]ATORYCLIA [id number] [address] [place] Carboxyhemoglobin (BldV) [Mass fraction] 1.6 % Normal 0.0-2.0 [facility] Comment on above: Order Comment: Speci men Type: VENOUS BLOOD SPECIMENOrdering Facility: [facility] Address: [address] [place] [address] Result Comment: Carb oxyhemoglobin Reference Range for Smokers: 2.0-8.0% Performed By: #### 2 4344-4 ####[facility]ATORYCLIA [id number] [place] [address] [place] Chloride [Moles/Vol] 93 mmol/L Low 97-105 [facility] Comment on above: Order Comment: Speci men Type: VENOUS BLOOD SPECIMENOrdering Facility: [facility] Address: [address] [place] [address] Performed By: #### 2 4344-4 ####[facility]ORATORYCLIA [id number] [place] [address] [place] CO2 (BldV) [Partial pressure] 74 mm[Hg] High 42-55 [facility] Comment on above: Order Comment: Speci men Type: VENOUS BLOOD SPECIMENOrdering Facility: [facility] Address: [address] [place] [address] Performed By: #### 2 4344-4 ####[facility] LABORATORYCLIA [id number] [place] [id number] [place] CO2 adjusted to patient's actual temperature (BldV) [Partial pressure] Normal [facility] Comment on above: Order Comment: Speci men Type: VENOUS BLOOD SPECIMENOrdering Facility: [facility] Address: [address] [place] [address] Performed By: #### 2 4344-4 ####[facility] LABORATORYCLIA [id number] [place] [address] [place] Glucose [Mass/Vol] 127 mg/dL High 60-105 [facility] Comment on above: Order Comment: Speci men Type: VENOUS BLOOD SPECIMENOrdering Facility: [facility] Address: [address] [place] [address] Performed By: #### 2 4344-4 ####[facility]ORATORYCLIA [id number] [place] [address] [place] HCO3 (Bld) [Moles/Vol] 39 mmol/L High 24-28 [facility] Comment on above: Order Comment: Speci men Type: VENOUS BLOOD SPECIMENOrdering Facility: [facility] Address: [address] [place] [address] Performed By: #### 2 4344-4 ####[facility] LABORATORYCLIA [id number] [place] [id number] [place] Hematocrit (Bld) [Volume fraction] 39.9 % Normal 39.0-51.0 [facility] Comment on above: Order Comment: Speci men Type: VENOUS BLOOD SPECIMENOrdering Facility: [facility] Address: [address] [place] [address] Performed By: #### 2 4344-4 ####[facility] LABORATORYCLIA [id number] [address] [place] Hemoglobin (Bld) [Mass/Vol] 13.0 g/dL Normal 13.0-17.0 [facility] Comment on above: Order Comment: Speci men Type: VENOUS BLOOD SPECIMENOrdering Facility: [facility] Address: [address] [place] [address] Performed By: #### 2 4344-4 ####[facility]ORATORYCLIA [id number] [place] [address] [place] Lactate [Moles/Vol] 1.6 mmol/L Normal 0.5-2.2 [facility] Comment on above: Order Comment: Speci men Type: VENOUS BLOOD SPECIMENOrdering Facility: [facility] Address: [address] [place] [address] Performed By: #### 2 4344-4 ####[facility] LABORATORYCLIA [id number] [address] [place] LITERS 3 Liters/min Normal [facility] Comment on above: Order Comment: Speci men Type: VENOUS BLOOD SPECIMENOrdering Facility: [facility] Address: [address] [place] [address] Performed By: #### 2 4344-4 ####[facility] LABORATORYCLIA [id number] [address] [place] Methemoglobin (Bld) [Mass fraction] 0.6 % Normal 0.0-1.5 [facility] Comment on above: Order Comment: Speci men Type: VENOUS BLOOD SPECIMENOrdering Facility: [facility] Address: [address] [place] [address] Performed By: #### 2 4344-4 ####[facility] LABORATORYCLIA [id number] [address] [place] O2 THERAPY Normal [facility] Comment on above: Order Comment: Speci men Type: VENOUS BLOOD SPECIMENOrdering Facility: [facility] Address: [address] [place] [address] Result Comment: NC = Nasal CannulaNC = Nasal Cannula Performed By: #### 2 4344-4 ####[facility]ORATORYCLIA [id number] [place] [id number] [place] Oxygen (BldV) [Partial pressure] 44 mm[Hg] Normal 35-45 [facility] Comment on above: Order Comment: Speci men Type: VENOUS BLOOD SPECIMENOrdering Facility: [facility] Address: [address] [place] [address] Performed By: #### 2 4344-4 ####[facility]ORATORYCLIA [id number] [place] [id number] [place] Oxygen adjusted to patient's actual temperature (BldV) [Partial pressure] Normal [facility] Comment on above: Order Comment: Speci men Type: VENOUS BLOOD SPECIMENOrdering Facility: [facility] Address: [address] [place] [address] Performed By: #### 2 4344-4 ####[facility]ORATORYCLIA [id number] [address] [place] Oxygen saturation in Venous blood 66 % Normal 60-85 [facility] Comment on above: Order Comment: Speci men Type: VENOUS BLOOD SPECIMENOrdering Facility: [facility] Address: [address] [place] [address] Performed By: #### 2 4344-4 ####[facility]ORATORYCLIA [id number] [place] [id number] [place] Oxyhemoglobin (BldV) [Mass fraction] 65 % Normal 60-85 [facility] Comment on above: Order Comment: Speci men Type: VENOUS BLOOD SPECIMENOrdering Facility: [facility] Address: [address] [place] [address] Performed By: #### 2 4344-4 ####[facility]ORATORYCLIA [id number] [place] [id number] [place] pH (BldV) 7.34 [pH] Normal 7.32-7.42 [facility] Comment on above: Order Comment: Speci men Type: VENOUS BLOOD SPECIMENOrdering Facility: [facility] Address: [address] [place] [address] Performed By: #### 2 4344-4 ####[facility]ORATORYCLIA [id number] [place] [address] [place] pH adjusted to patient's actual temperature (BldV) Normal [facility] Comment on above: Order Comment: Speci men Type: VENOUS BLOOD SPECIMENOrdering Facility: [facility] Address: [address] [place] [address] Performed By: #### 2 4344-4 ####[facility]ORATORYCLIA [id number] [place] [id number] [place] Potassium [Moles/Vol] 3.2 mmol/L Low 3.5-5.0 [facility] Comment on above: Order Comment: Speci men Type: VENOUS BLOOD SPECIMENOrdering Facility: [facility] Address: [address] [place] [address] Performed By: #### 2 4344-4 ####[facility] LABORATORYCLIA [id number] [place] [address] [place] Sodium [Moles/Vol] 134 mmol/L Low 136-144 [facility] Comment on above: Order Comment: Speci men Type: VENOUS BLOOD SPECIMENOrdering Facility: [facility] Address: [address] [place] [address] Performed By: #### 2 4344-4 ####[facility] LABORATORYCLIA [id number] [place] [address] [place] Base excess Calc (BldV) [Moles/Vol] 10 mmol/L High 0-2 [facility] Comment on above: Order Comment: Speci men Type: VENOUS BLOOD SPECIMENOrdering Facility: [facility] Address: [address] [place] [address] Performed By: #### 2 4344-4 ####[facility]ORATORYCLIA [id number] [place] [id number] [place] Body temperature 97.7 [degF] [facility] Comment on above: Order Comment: Speci men Type: VENOUS BLOOD SPECIMENOrdering Facility: [facility] Address: [address] [place] [address] Performed By: #### 2 4344-4 ####[facility]ORATORYCLIA [id number] [place] [id number] [place] Calcium.ionized (Bld) [Mass/Vol] 1.13 mmol/L Normal 1.08-1.30 [facility] Comment on above: Order Comment: Speci men Type: VENOUS BLOOD SPECIMENOrdering Facility: [facility] Address: [address] [place] [address] Performed By: #### 2 4344-4 ####[facility]ORATORYCLIA [id number] [place] [address] [place] Calcium.ionized adjusted to pH 7.4 (BldA) [Moles/Vol] 1.13 mmol/L Normal 1.08-1.30 [facility] Comment on above: Order Comment: Speci men Type: VENOUS BLOOD SPECIMENOrdering Facility: [facility] Address: [address] [place] [address] Performed By: #### 2 4344-4 ####[facility]ORATORYCLIA [id number] [place] [address] [place] Carboxyhemoglobin (BldV) [Mass fraction] 2.5 % High 0.0-2.0 [facility] Comment on above: Order Comment: Speci men Type: VENOUS BLOOD SPECIMENOrdering Facility: [facility] Address: [address] [place] [address] Result Comment: Carb oxyhemoglobin Reference Range for Smokers: 2.0-8.0% Performed By: #### 2 4344-4 ####[facility]ORATORYCLIA [id number] [place] [address] [place] Chloride [Moles/Vol] 90 mmol/L Low 97-105 [facility] Comment on above: Order Comment: Speci men Type: VENOUS BLOOD SPECIMENOrdering Facility: [facility] Address: [address] [place] [address] Performed By: #### 2 4344-4 ####[facility]ORATORYCLIA [id number] [place] [id number] [place] CO2 (BldV) [Partial pressure] 61 mm[Hg] High 42-55 [facility] Comment on above: Order Comment: Speci men Type: VENOUS BLOOD SPECIMENOrdering Facility: [facility] Address: [address] [place] [address] Performed By: #### 2 4344-4 ####[facility]ORATORYCLIA [id number] [place] [id number] [place] CO2 adjusted to patient's actual temperature (BldV) [Partial pressure] Normal [facility] Comment on above: Order Comment: Speci men Type: VENOUS BLOOD SPECIMENOrdering Facility: [facility] Address: [address] [place] [address] Performed By: #### 2 4344-4 ####[facility] LABORATORYCLIA [id number] [place] [id number] [place] Glucose [Mass/Vol] 159 mg/dL High 60-105 [facility] Comment on above: Order Comment: Speci men Type: VENOUS BLOOD SPECIMENOrdering Facility: [facility] Address: [address] [place] [address] Performed By: #### 2 4344-4 ####[facility] LABORATORYCLIA [id number] [place] [id number] [place] HCO3 (Bld) [Moles/Vol] 37 mmol/L High 24-28 [facility] Comment on above: Order Comment: Speci men Type: VENOUS BLOOD SPECIMENOrdering Facility: [facility] Address: [address] [place] [address] Performed By: #### 2 4344-4 ####[facility] LABORATORYCLIA [id number] [place] [id number] [place] Hematocrit (Bld) [Volume fraction] 44.2 % Normal 39.0-51.0 [facility] Comment on above: Order Comment: Speci men Type: VENOUS BLOOD SPECIMENOrdering Facility: [facility] Address: [address] [place] [address] Performed By: #### 2 4344-4 ####[facility] LABORATORYCLIA [id number] [place] [id number] [place] Hemoglobin (Bld) [Mass/Vol] 14.4 g/dL Normal 13.0-17.0 [facility] Comment on above: Order Comment: Speci men Type: VENOUS BLOOD SPECIMENOrdering Facility: [facility] Address: [address] [place] [address] Performed By: #### 2 4344-4 ####[facility] LABORATORYCLIA [id number] [place] [id number] [place] Lactate [Moles/Vol] 1.5 mmol/L Normal 0.5-2.2 [facility] Comment on above: Order Comment: Speci men Type: VENOUS BLOOD SPECIMENOrdering Facility: [facility] Address: [address] [place] [address] Performed By: #### 2 4344-4 ####[facility] LABORATORYCLIA [id number] [address] OF [place] Methemoglobin (Bld) [Mass fraction] 0.6 % Normal 0.0-1.5 [facility] Comment on above: Order Comment: Speci men Type: VENOUS BLOOD SPECIMENOrdering Facility: [facility] Address: [address] [place] [address] Performed By: #### 2 4344-4 ####[facility] LABORATORYCLIA [id number] [address] O2 THERAPY RA=Room Air Normal [facility] Comment on above: Order Comment: Speci men Type: VENOUS BLOOD SPECIMENOrdering Facility: [facility] Address: [address] [place] [address] Performed By: #### 2 4344-4 ####[facility]ORATORYCLIA [id number] [address] Oxygen (BldV) [Partial pressure] mm[Hg] Normal 35-45 [facility] Comment on above: Order Comment: Speci men Type: VENOUS BLOOD SPECIMENOrdering Facility: [facility] Address: [address] [place] [address] Performed By: #### 2 4344-4 ####[facility] LABORATORYCLIA [id number] [address] Oxygen adjusted to patient's actual temperature (BldV) [Partial pressure] Normal [facility] Comment on above: Order Comment: Speci men Type: VENOUS BLOOD SPECIMENOrdering Facility: [facility] Address: [address] [place] [address] Performed By: #### 2 4344-4 ####[facility] LABORATORYCLIA [id number] [place] [id number] [facility] Oxygen saturation in Venous blood 61 % Normal 60-85 [facility] Comment on above: Order Comment: Speci men Type: VENOUS BLOOD SPECIMENOrdering Facility: [facility] Address: [address] [place] [address] Performed By: #### 2 4344-4 ####[facility] LABORATORYCLIA [id number] [address] Oxyhemoglobin (BldV) [Mass fraction] 59 % Low 60-85 [facility] Comment on above: Order Comment: Speci men Type: VENOUS BLOOD SPECIMENOrdering Facility: [facility] Address: [address] [place] [address] Performed By: #### 2 4344-4 ####[facility] LABORATORYCLIA [id number] [place] [id number] [place] [facility] pH (BldV) 7.40 [pH] Normal 7.32-7.42 [facility] Comment on above: Order Comment: Speci men Type: VENOUS BLOOD SPECIMENOrdering Facility: [facility] Address: [address] [place] [address] Performed By: #### 2 4344-4 ####[facility] LABORATORYCLIA [id number] [place] [id number] [place] [facility] pH adjusted to patient's actual temperature (BldV) Normal [facility] Comment on above: Order Comment: Speci men Type: VENOUS BLOOD SPECIMENOrdering Facility: [facility] Address: [address] [place] [address] Performed By: #### 2 4344-4 ####[facility] LABORATORYCLIA [id number] [place] [id number] [place] Potassium [Moles/Vol] 4.2 mmol/L Normal 3.5-5.0 [facility] Comment on above: Order Comment: Speci men Type: VENOUS BLOOD SPECIMENOrdering Facility: [facility] Address: [address] [place] [address] Performed By: #### 2 4344-4 ####[facility] LABORATORYCLIA [id number] [place] [id number] [place] Sodium [Moles/Vol] 139 mmol/L Normal 136-144 [facility] Comment on above: Order Comment: Speci men Type: VENOUS BLOOD SPECIMENOrdering Facility: [facility] Address: [address] [place] [address] Performed By: #### 2 4344-4 ####[facility]ORATORYCLIA [id number] [place] [address] [place] Base excess Calc (BldV) [Moles/Vol] 9 mmol/L High 0-2 [facility] Comment on above: Order Comment: Speci men Type: VENOUS BLOOD SPECIMENOrdering Facility: [facility] Address: [address] [place] [address] Performed By: #### 2 4344-4 ####[facility] LABORATORYCLIA [id number] [place] [address] [place] Body temperature 97.7 [degF] Normal [facility] Comment on above: Order Comment: Speci men Type: VENOUS BLOOD SPECIMENOrdering Facility: [facility] Address: [address] [place] [address] Performed By: #### 2 4344-4 ####[facility] LABORATORYCLIA [id number] [place] [address] [place] Calcium.ionized (Bld) [Mass/Vol] 1.11 mmol/L Normal 1.08-1.30 [facility] Comment on above: Order Comment: Speci men Type: VENOUS BLOOD SPECIMENOrdering Facility: [facility] Address: [address] [place] [address] Performed By: #### 2 4344-4 ####[facility] LABORATORYCLIA [id number] [place] [address] [place] Calcium.ionized adjusted to pH 7.4 (BldA) [Moles/Vol] 1.09 mmol/L Normal 1.08-1.30 [facility] Comment on above: Order Comment: Speci men Type: VENOUS BLOOD SPECIMENOrdering Facility: [facility] Address: [address] [place] [address] Performed By: #### 2 4344-4 ####[facility] LABORATORYCLIA [id number] [place] [address] [place] Carboxyhemoglobin (BldV) [Mass fraction] 2.8 % High 0.0-2.0 [facility] Comment on above: Order Comment: Speci men Type: VENOUS BLOOD SPECIMENOrdering Facility: [facility] Address: [address] [place] [address] Result Comment: Carb oxyhemoglobin Reference Range for Smokers: 2.0-8.0% Performed By: #### 2 4344-4 ####[facility]ORATORYCLIA [id number] [place] [address] [place] Chloride [Moles/Vol] 93 mmol/L Low 97-105 [facility] Comment on above: Order Comment: Speci men Type: VENOUS BLOOD SPECIMENOrdering Facility: [facility] Address: [address] [place] [address] Performed By: #### 2 4344-4 ####[facility]ORATORYCLIA [id number] [place] [id number] [place] CO2 (BldV) [Partial pressure] 65 mm[Hg] High 42-55 [facility] Comment on above: Order Comment: Speci men Type: VENOUS BLOOD SPECIMENOrdering Facility: [facility] Address: [address] [place] [address] Performed By: #### 2 4344-4 ####[facility]ORATORYCLIA [id number] [place] [address] [place] CO2 adjusted to patient's actual temperature (BldV) [Partial pressure] Normal [facility] Comment on above: Order Comment: Speci men Type: VENOUS BLOOD SPECIMENOrdering Facility: [facility] Address: [address] [place] [address] Performed By: #### 2 4344-4 ####[facility]ORATORYCLIA [id number] [place] [id number] [place] Glucose [Mass/Vol] 171 mg/dL High 60-105 [facility] Comment on above: Order Comment: Speci men Type: VENOUS BLOOD SPECIMENOrdering Facility: [facility] Address: [address] [place] [address] Performed By: #### 2 4344-4 ####[facility]ORATORYCLIA [id number] [place] [id number] [place] HCO3 (Bld) [Moles/Vol] 36 mmol/L High 24-28 [facility] Comment on above: Order Comment: Speci men Type: VENOUS BLOOD SPECIMENOrdering Facility: [facility] Address: [address] [place] [address] Performed By: #### 2 4344-4 ####[facility]ORATORYCLIA [id number] [place] [address] [place] Hematocrit (Bld) [Volume fraction] 43.2 % Normal 39.0-51.0 [facility] Comment on above: Order Comment: Speci men Type: VENOUS BLOOD SPECIMENOrdering Facility: [facility] Address: [address] [place] [address] Performed By: #### 2 4344-4 ####[facility]ORATORYCLIA [id number] [place] [id number] [place] Hemoglobin (Bld) [Mass/Vol] 14.1 g/dL Normal 13.0-17.0 [facility] Comment on above: Order Comment: Speci men Type: VENOUS BLOOD SPECIMENOrdering Facility: [facility] Address: [address] [place] [address] Performed By: #### 2 4344-4 ####[facility]ORATORYCLIA [id number] [place] [id number] [place] Lactate [Moles/Vol] 2.1 mmol/L Normal 0.5-2.2 [facility] Comment on above: Order Comment: Speci men Type: VENOUS BLOOD SPECIMENOrdering Facility: [facility] Address: [address] [place] [address] Performed By: #### 2 4344-4 ####[facility] LABORATORYCLIA [id number] [place] [address] [place] Methemoglobin (Bld) [Mass fraction] 0.5 % Normal 0.0-1.5 [facility] Comment on above: Order Comment: Speci men Type: VENOUS BLOOD SPECIMENOrdering Facility: [facility] Address: [address] [place] [address] Performed By: #### 2 4344-4 ####[facility]ORATORYCLIA [id number] [address] O2 THERAPY NC = Nasal Cannula Normal [facility] Comment on above: Order Comment: Speci men Type: VENOUS BLOOD SPECIMENOrdering Facility: [facility] Address: [address] [place] [address] Performed By: #### 2 4344-4 ####[facility] LABORATORYCLIA [id number] [address] [place] Oxygen (BldV) [Partial pressure] 50 mm[Hg] High 35-45 [facility] Comment on above: Order Comment: Speci men Type: VENOUS BLOOD SPECIMENOrdering Facility: [facility] Address: [address] [place] [address] Performed By: #### 2 4344-4 ####[facility]ORATORYCLIA [id number] [address] [place] Oxygen adjusted to patient's actual temperature (BldV) [Partial pressure] Normal [facility] Comment on above: Order Comment: Speci men Type: VENOUS BLOOD SPECIMENOrdering Facility: [facility] Address: [address] [place] [address] Performed By: #### 2 4344-4 ####[facility]ORATORYCLIA [id number] [place] [address] [place] Oxygen saturation in Venous blood 82 % Normal 60-85 [facility] Comment on above: Order Comment: Speci men Type: VENOUS BLOOD SPECIMENOrdering Facility: [facility] Address: [address] [place] [address] Performed By: #### 2 4344-4 ####[facility] LABORATORYCLIA [id number] [place] [address] [place] Oxyhemoglobin (BldV) [Mass fraction] 79 % Normal 60-85 [facility] Comment on above: Order Comment: Speci men Type: VENOUS BLOOD SPECIMENOrdering Facility: [facility] Address: [address] [place] [address] Performed By: #### 2 4344-4 ####[facility] LABORATORYCLIA [id number] [place] [address] [place] pH (BldV) 7.36 [pH] Normal 7.32-7.42 [facility] Comment on above: Order Comment: Speci men Type: VENOUS BLOOD SPECIMENOrdering Facility: [facility] Address: [address] [place] [address] Performed By: #### 2 4344-4 ####[facility]ORATORYCLIA [id number] [place] [address] [place] pH adjusted to patient's actual temperature (BldV) Normal [facility] Comment on above: Order Comment: Speci men Type: VENOUS BLOOD SPECIMENOrdering Facility: [facility] Address: [address] [place] [address] Performed By: #### 2 4344-4 ####[facility]ORATORYCLIA [id number] [place] [id number] [place] Potassium [Moles/Vol] 4.1 mmol/L Normal 3.5-5.0 [facility] Comment on above: Order Comment: Speci men Type: VENOUS BLOOD SPECIMENOrdering Facility: [facility] Address: [address] [place] [address] Performed By: #### 2 4344-4 ####[facility] LABORATORYCLIA [id number] [place] [id number] [place] Sodium [Moles/Vol] 136 mmol/L Normal 136-144 [facility] Comment on above: Order Comment: Speci men Type: VENOUS BLOOD SPECIMENOrdering Facility: [facility] Address: [address] [place] [address] Performed By: #### 2 4344-4 ####[facility]ORATORYCLIA [id number] [place] [id number] [place] MEDICAL EMERon 12-24-2024 MEDICAL DELLA Normal [facility] Magnesium [Mass/Vol] 2.0 mg/dL Normal 1.7-2.3 [facility] Comment on above: Order Comment: Speci men Type: BLOOD SPECIMENOrdering Facility: [facility] Address: [address] [place] [address] Performed By: #### 2 4362-6, 86093-7 ####[facility]ORATORYCLIA [id number] [place] [id number] [facility] THE[place] NT-proBNP [facility] 12-24 Natriuretic peptide.B prohormone N-Terminal [Mass/Vol] 04747 pg/mL High <125 [facility] Comment on above: Order Comment: Speci men Type: BLOOD SPECIMENOrdering Facility: [facility] Address: [address] [place] [address] Performed By: #### 3 3762-6 ####[facility]ORATORYCLIA [id number] [place] [id number] [place] NURSING PROGon 12-24-2024 NURSING PROG Normal [facility] NURSING PROG Normal [facility] Renal function 2000 panelon 12-24-2024 Albumin [Mass/Vol] 3.5 g/dL Low 3.9-4.9 [facility] Comment on above: Order Comment: Speci men Type: BLOOD SPECIMENOrdering Facility: [facility] Address: [address] [place] [address] Performed By: #### 2 4362-6, 14838-1 ####[facility]ORATORYCLIA [id number] [place] [id number] [place] Anion gap [Moles/Vol] 9 mmol/L Normal 8-15 [facility] Comment on above: Order Comment: Speci men Type: BLOOD SPECIMENOrdering Facility: [facility] Address: [address] [place] [address] Performed By: #### 2 4362-6, ####[facility] LABORATORYCLIA [id number] [place] [id number] [place] Calcium [Mass/Vol] 9.0 mg/dL Normal 8.5-10.2 [facility] Comment on above: Order Comment: Speci men Type: BLOOD SPECIMENOrdering Facility: [facility] Address: [address] [place] [address] Performed By: #### 2 4366, ####[facility] LABORATORYCLIA [id number] [place] [address] [place] Chloride [Moles/Vol] 91 mmol/L Low 98-107 [facility] Comment on above: Order Comment: Speci men Type: BLOOD SPECIMENOrdering Facility: [facility] Address: [address] [place] [address] Performed By: #### 2 436-6, ####[facility] LABORATORYCLIA [id number] [place] [id number] [place] CO2 [Moles/Vol] 36 mmol/L High 22-30 [facility] Comment on above: Order Comment: Speci men Type: BLOOD SPECIMENOrdering Facility: [facility] Address: [address] [place] [address] Performed By: #### 2 4362-6, ####[facility] LABORATORYCLIA [id number] [place] [id number] [place] Creatinine [Mass/Vol] 1.27 mg/dL High 0.73-1.22 [facility] Comment on above: Order Comment: Speci men Type: BLOOD SPECIMENOrdering Facility: [facility] Address: [address] [place] [address] Performed By: #### 2 4362 ####[facility]ORATORYCLIA [id number] [place] [id number] [place] eGFRcr SerPlBld CKD-EPI 2020 63 mL/min/1.73m??? Normal >=60 [facility] Comment on above: Order Comment: Concetta coronado Type: BLOOD SPECIMENOrdering Facility: [facility] Address: [address] [place] [address] Result Comment: Matilda mated Glomerular Filtration Rate (eGFR) is calculated using the 2020 CKD-EPI creatinine equation. This equation utilizes serum creatinine, sex, and age as parameters. The creatinine assay has traceable calibration to isotope dilution-mass spectrometry. Refer to KDIGO guidelines for clinical interpretation. In patients with unstable renal function, e.g. those with acute kidney injury, the eGFR may not accurately reflect actual GFR. Performed By: #### 2 4362-6, ####[facility]ORATORYCLIA [id number] [place] [id number] [place] Glucose [Mass/Vol] 158 mg/dL High 74-99 [facility] Comment on above: Order Comment: Concetta coronado Type: BLOOD SPECIMENOrdering Facility: [facility] Address: [address] [place] [address] Result Comment: The [place] [employer] (ADA) provides guidance for cutoff values for fasting glucose and random glucose. The ADA defines fasting as no caloric intake for at least 8 hours. Fasting plasma glucose results between 100 to 125 mg/dL indicate increased risk for diabetes (prediabetes).Fasting plasma glucose results greater than or equal to 126 mg/dL meet the criteria for diagnosis of diabetes. In the absence of unequivocal hyperglycemia, results should be confirmed by repeat testing. In a patient with classic symptoms of hyperglycemia or hyperglycemic crisis, random plasma glucose results greater than or equal to 200 mg/dL meet the criteria for diagnosis of diabetes.Reference: Standards of Medical Care in Diabetes 2016, [place] [employer]. Diabetes Care. 2016.39(Suppl 1). Performed By: #### 2 4362-6, ####[facility]ORATORYCLIA [id number] [place] [id number] [place] Phosphate [Mass/Vol] 3.2 mg/dL Normal 2.7-4.8 [facility] Comment on above: Order Comment: Speci men Type: BLOOD SPECIMENOrdering Facility: [facility] Address: [address] [place] [id number] Performed By: #### 2 4362-6, ####[facility]ORATORYCLIA [id number] [place] [id number] [place] Potassium [Moles/Vol] 4.3 mmol/L Normal 3.7-5.1 [facility] Comment on above: Order Comment: Speci men Type: BLOOD SPECIMENOrdering Facility: [facility] Address: [address] [place] [address] Performed By: #### 2 4362-6, ####[facility] LABORATORYCLIA [id number] [place] [address] [place] Sodium [Moles/Vol] 136 mmol/L Normal 136-144 [facility] Comment on above: Order Comment: Speci men Type: BLOOD SPECIMENOrdering Facility: [facility] Address: [address] [place], [place] [address] Performed By: #### 2 4362-6, ####[facility] LABORATORYCLIA [id number] [place] [id number] [place] Urea nitrogen [Mass/Vol] 34 mg/dL High 9-24 [facility] Comment on above: Order Comment: Speci men Type: BLOOD SPECIMENOrdering Facility: [facility] Address: [address] [place], [place] [address] Performed By: #### 2 4362-6, ####[facility] LABORATORYCLIA [id number] [place] [id number] [place] THERAPY NTon 12-24-2024 THERAPY NT Normal [facility] XR CHEST 1V FRONTALon 2024 XR CHEST 1V FRONTAL Normal [facility] XR CHEST 1V FRONTAL Normal [facility] ALLIED HEALTHon 12-23-2024 ALLIED HEALTH Normal [facility] CASE MANAGEMon 12-23-2024 CASE MANAGEM Normal [facility] CBC W Auto Differential pane l (Bld)on 12-23-2024 Basophils (Bld) [#/Vol] 0.03 10*3/uL Normal <0.11 [facility] Comment on above: Order Comment: Speci men Type: BLOOD SPECIMENOrdering Facility: [facility] Address: [address] [place] [address] Performed By: #### 5 7021-8 ####[facility] LABORATORYCLIA [id number] [place] [id number] [place] Basophils/100 WBC (Bld) 0.4 % Normal [facility] Comment on above: Order Comment: Speci men Type: BLOOD SPECIMENOrdering Facility: [facility] Address: [address] [place] [address] Performed By: #### 5 7021-8 ####[facility] LABORATORYCLIA [id number] [place] [address] [place] Differential cell count method Nom (Bld) Auto Normal [facility] Comment on above: Order Comment: Speci men Type: BLOOD SPECIMENOrdering Facility: [facility] Address: [address] [place] [address] Performed By: #### 5 7021-8 ####[facility]ORATORYCLIA [id number] [place] [address] [place] Eosinophils (Bld) [#/Vol] 1.16 10*3/uL High <0.46 [facility] Comment on above: Order Comment: Speci men Type: BLOOD SPECIMENOrdering Facility: [facility] Address: [address] [place] [address] Performed By: #### 5 7021-8 ####[facility]ORATORYCLIA [id number] [place] [id number] [place] Eosinophils/100 WBC (Bld) 13.8 % Normal [facility] Comment on above: Order Comment: Speci men Type: BLOOD SPECIMENOrdering Facility: [facility] Address: [address] [place] [address] Performed By: #### 5 7021-8 ####[facility] LABORATORYCLIA [id number] [place] [address] [place] Erythrocyte distribution width (RBC) [Ratio] 16.4 % High 11.5-15.0 [facility] Comment on above: Order Comment: Speci men Type: BLOOD SPECIMENOrdering Facility: [facility] Address: [address] [place] [address] Performed By: #### 5 7021-8 ####[facility] LABORATORYCLIA [id number] [place] [address] [place] Hematocrit (Bld) [Volume fraction] 43.6 % Normal 39.0-51.0 [facility] Comment on above: Order Comment: Speci men Type: BLOOD SPECIMENOrdering Facility: [facility] Address: [address] [place] [address] Performed By: #### 5 7021-8 ####[facility] LABORATORYCLIA [id number] [place] [address] [place] Hemoglobin (Bld) [Mass/Vol] 13.9 g/dL Normal 13.0-17.0 [facility] Comment on above: Order Comment: Speci men Type: BLOOD SPECIMENOrdering Facility: [facility] Address: [address] [place] [address] Performed By: #### 5 7021-8 ####[facility] LABORATORYCLIA [id number] [place] [address] [place] Immature granulocytes (Bld) [#/Vol] 0.12 10*3/uL High <0.10 [facility] Comment on above: Order Comment: Speci men Type: BLOOD SPECIMENOrdering Facility: [facility] Address: [address] [place] [address] Performed By: #### 5 7021-8 ####[facility] LABORATORYCLIA [id number] [place] [id number] [place] Immature granulocytes/100 WBC (Bld) 1.4 % Normal [facility] Comment on above: Order Comment: Speci men Type: BLOOD SPECIMENOrdering Facility: [facility] Address: [address] [place] [address] Performed By: #### 5 7021-8 ####[facility] LABORATORYCLIA [id number] [place] [address] [place] Lymphocytes (Bld) [#/Vol] 1.52 10*3/uL Normal 1.00-4.00 [facility] Comment on above: Order Comment: Speci men Type: BLOOD SPECIMENOrdering Facility: [facility] Address: [address] [place] [address] Performed By: #### 5 7021-8 ####[facility] LABORATORYCLIA [id number] [place] [address] [place] Lymphocytes/100 WBC (Bld) 18.1 % Normal [facility] Comment on above: Order Comment: Speci men Type: BLOOD SPECIMENOrdering Facility: [facility] Address: [address] [place] [address] Performed By: #### 5 7021-8 ####[facility] LABORATORYCLIA [id number] [place] [address] [place] MCH (RBC) [Entitic mass] 28.3 pg Normal 26.0-34.0 [facility] Comment on above: Order Comment: Speci men Type: BLOOD SPECIMENOrdering Facility: [facility] Address: [address] [place] [address] Performed By: #### 5 7021-8 ####[facility] LABORATORYCLIA [id number] [place] [address] [place] MCHC (RBC) [Mass/Vol] 31.9 g/dL Normal 30.5-36.0 [facility] Comment on above: Order Comment: Speci men Type: BLOOD SPECIMENOrdering Facility: [facility] Address: [address] [place] [address] Performed By: #### 5 7021-8 ####[facility] LABORATORYCLIA [id number] [address] [place] MCV (RBC) [Entitic vol] 88.8 fL Normal 80.0-100.0 [facility] Comment on above: Order Comment: Speci men Type: BLOOD SPECIMENOrdering Facility: [facility] Address: [address] [place] [address] Performed By: #### 5 7021-8 ####[facility] LABORATORYCLIA [id number] [place] [id number] [place] Monocytes (Bld) [#/Vol] 0.75 10*3/uL Normal <0.87 [facility] Comment on above: Order Comment: Speci men Type: BLOOD SPECIMENOrdering Facility: [facility] Address: [address] [place] [address] Performed By: #### 5 7021-8 ####[facility] LABORATORYCLIA [id number] [place] [id number] [place] Monocytes/100 WBC (Bld) 8.9 % Normal [facility] Comment on above: Order Comment: Speci men Type: BLOOD SPECIMENOrdering Facility: [facility] Address: [address] [place] [address] Performed By: #### 5 7021-8 ####[facility] LABORATORYCLIA [id number] [place] [address] [place] Neutrophils (Bld) [#/Vol] 4.80 10*3/uL Normal 1.45-7.50 [facility] Comment on above: Order Comment: Speci men Type: BLOOD SPECIMENOrdering Facility: [facility] Address: [address] [place] [address] Performed By: #### 5 7021-8 ####[facility] LABORATORYCLIA [id number] [place] [id number] [place] Neutrophils/100 WBC (Bld) 57.4 % Normal [facility] Comment on above: Order Comment: Speci men Type: BLOOD SPECIMENOrdering Facility: [facility] Address: [address] [place] [address] Performed By: #### 5 7021-8 ####[facility] LABORATORYCLIA [id number] [place] [id number] [place] Nucleated RBC (Bld) [#/Vol] 0.02 10*3/uL High <0.01 [facility] Comment on above: Order Comment: Speci men Type: BLOOD SPECIMENOrdering Facility: [facility] Address: [address] [place] [address] Performed By: #### 5 7021-8 ####[facility] LABORATORYCLIA [id number] [place] [id number] [place] Nucleated RBC/100 WBC (Bld) [Ratio] 0.2 /100 WBC Normal [facility] Comment on above: Order Comment: Speci men Type: BLOOD SPECIMENOrdering Facility: [facility] Address: [address] [place] [address] Performed By: #### 5 7021-8 ####[facility] LABORATORYCLIA [id number] [place] [address] [place] Platelet mean volume (Bld) [Entitic vol] 9.3 fL Normal 9.0-12.7 [facility] Comment on above: Order Comment: Speci men Type: BLOOD SPECIMENOrdering Facility: [facility] Address: [address] [place] [address] Performed By: #### 5 7021-8 ####[facility] LABORATORYCLIA [id number] [place] [address] [place] Platelets (Bld) [#/Vol] 271 10*3/uL Normal 150-400 [facility] Comment on above: Order Comment: Speci men Type: BLOOD SPECIMENOrdering Facility: [facility] Address: [address] [place] [address] Performed By: #### 5 7021-8 ####[facility] LABORATORYCLIA [id number] [place] [id number] [place] RBC (Bld) [#/Vol] 4.91 10*6/uL Normal 4.20-6.00 [facility] Comment on above: Order Comment: Speci men Type: BLOOD SPECIMENOrdering Facility: [facility] Address: [address] [place] [address] Performed By: #### 5 7021-8 ####[facility] LABORATORYCLIA [id number] [place] [id number] [place] WBC (Bld) [#/Vol] 8.38 10*3/uL Normal 3.70-11.00 [facility] Comment on above: Order Comment: Speci men Type: BLOOD SPECIMENOrdering Facility: [facility] Address: [address] [place] [address] Performed By: #### 5 7021-8 ####[facility] LABORATORYCLIA [id number] [place] [id number] [place] CONSULTon 12-23-2024 CONSULT Normal [facility] CONSULT PROGon 12-23-2024 CONSULT PROG Normal [facility] CONSULT PROG Normal [facility] CONSULT PROG Normal [facility] CONSULT PROG Normal [facility] CONSULT PROG Normal [facility] CONSULT PROG Normal [facility] Hepatic function 2000 panelo n 12-23-2024 ALP [Catalytic activity/Vol] 230 U/L High 38-113 [facility] Comment on above: Order Comment: Speci men Type: BLOOD SPECIMENOrdering Facility: [facility] Address: [address] [place] [address] Performed By: #### 1 9123-9, 95212-9, 26083-3 ####[facility]ATORYCLIA [id number] [place] [id number] [place] ALT [Catalytic activity/Vol] 24 U/L Normal 10-54 [facility] Comment on above: Order Comment: Speci men Type: BLOOD SPECIMENOrdering Facility: [facility] Address: [address] [place] [address] Performed By: #### 1 9123-9, 67742-3, 81686-9 ####[facility] LABORATORYCLIA [id number] [place] [id number] [place] AST [Catalytic activity/Vol] 31 U/L Normal 14-40 [facility] Comment on above: Order Comment: Speci men Type: BLOOD SPECIMENOrdering Facility: [facility] Address: [address] [place] [address] Performed By: #### 1 9123-9, 59990-4, 95770-0 ####[facility] LABORATORYCLIA [id number] [place] [id number] [place] Bilirubin [Mass/Vol] 0.8 mg/dL Normal 0.2-1.3 [facility] Comment on above: Order Comment: Speci men Type: BLOOD SPECIMENOrdering Facility: [facility] Address: [address] [place] [address] Performed By: #### 1 9123-9, 96382-5, 63876-0 ####[facility]ORATORYCLIA [id number] [place] [address] [place] Bilirubin.conjugated [Mass/Vol] 0.3 mg/dL High <0.3 [facility] Comment on above: Order Comment: Speci men Type: BLOOD SPECIMENOrdering Facility: [facility] Address: [address] [place] [address] Performed By: #### 1 9123-9, 66458-5, 84336-9 ####[facility]ORATORYCLIA [id number] [address] STATES OF [facility] Protein [Mass/Vol] 7.4 g/dL Normal 6.3-8.0 [facility] Comment on above: Order Comment: Speci men Type: BLOOD SPECIMENOrdering Facility: [facility] Address: [address] [place] [address] Performed By: #### 1 9123-9, 71553-7, 38829-2 ####[facility]ORATORYCLIA [id number] [place] [address] [place] Magnesium SerPl-mCncon 12-23 Magnesium [Mass/Vol] 1.9 mg/dL Normal 1.7-2.3 [facility] Comment on above: Order Comment: Speci men Type: BLOOD SPECIMENOrdering Facility: [facility] Address: [address] [place] [address] Performed By: #### 1 9123-9, 06702-7, 14570-5 ####[facility]ORATORYCLIA [id number] [place] [id number] [place] NURSING PROGon 12-23-2024 NURSING PROG Normal [facility] Renal Func 2000 Pnl SerPlon 12-23-2024 Albumin [Mass/Vol] 3.1 g/dL Low 3.9-4.9 [facility] Comment on above: Order Comment: Speci men Type: BLOOD SPECIMENOrdering Facility: [facility] Address: [address] [place] [address] Performed By: #### 1 9123-9, 94979-0, 60914-7 ####[facility]ORATORYCLIA [id number] [place] [id number] [place] Renal function 2000 panelon 12-23-2024 Anion gap [Moles/Vol] 12 mmol/L Normal 8-15 [facility] Comment on above: Order Comment: Speci men Type: BLOOD SPECIMENOrdering Facility: [facility] Address: [address] [place] [address] Performed By: #### 1 9123-9, 64955-0, 91090-6 ####[facility]ORATORYCLIA [id number] [place] [address] [place] Calcium [Mass/Vol] 9.0 mg/dL Normal 8.5-10.2 [facility] Comment on above: Order Comment: Speci men Type: BLOOD SPECIMENOrdering Facility: [facility] Address: [address] [place] [address] Performed By: #### 1 9123-9, 47794-0, 64796-5 ####[facility]ORATORYCLIA [id number] [place] [id number] [place] Chloride [Moles/Vol] 94 mmol/L Low 98-107 [facility] Comment on above: Order Comment: Speci men Type: BLOOD SPECIMENOrdering Facility: [facility] Address: [address] [place] [address] Performed By: #### 1 9123-9, 64411-5, 83672-8 ####[facility]ORATORYCLIA [id number] [place] [id number] [place] CO2 [Moles/Vol] 32 mmol/L High 22-30 [facility] Comment on above: Order Comment: Speci men Type: BLOOD SPECIMENOrdering Facility: [facility] Address: [address] [place] [address] Performed By: #### 1 9123-9, 72070-5, 46699-3 ####[facility]ORATORYCLIA [id number] [place] [id number] [place] Creatinine [Mass/Vol] 1.34 mg/dL High 0.73-1.22 [facility] Comment on above: Order Comment: Concetta men Type: BLOOD SPECIMENOrdering Facility: [facility] Address: [address] [place] [address] Performed By: #### 1 9123-9, 73590-4, 32851-2 ####[facility] LABORATORYCLIA [id number] [place] [id number] [place] eGFRcr SerPlBld CKD-EPI 2020 59 mL/min/1.73m??? Low >=60 [facility] Comment on above: Order Comment: Concetta coronado Type: BLOOD SPECIMENOrdering Facility: [facility] Address: [address] [place] [address] Result Comment: Matilda mated Glomerular Filtration Rate (eGFR) is calculated using the 2020 CKD-EPI creatinine equation. This equation utilizes serum creatinine, sex, and age as parameters. The creatinine assay has traceable calibration to isotope dilution-mass spectrometry. Refer to KDIGO guidelines for clinical interpretation. In patients with unstable renal function, e.g. those with acute kidney injury, the eGFR may not accurately reflect actual GFR. Performed By: #### 1 9123-9, 87687-7, 27812-1 ####[facility] LABORATORYCLIA [id number] [place] [id number] [place] Glucose [Mass/Vol] 77 mg/dL Normal 74-99 [facility] Comment on above: Order Comment: Concetta men Type: BLOOD SPECIMENOrdering Facility: [facility] Address: [address] [place] [address] Result Comment: The [place] [employer] (ADA) provides guidance for cutoff values for fasting glucose and random glucose. The ADA defines fasting as no caloric intake for at least 8 hours. Fasting plasma glucose results between 100 to 125 mg/dL indicate increased risk for diabetes (prediabetes).Fasting plasma glucose results greater than or equal to 126 mg/dL meet the criteria for diagnosis of diabetes. In the absence of unequivocal hyperglycemia, results should be confirmed by repeat testing. In a patient with classic symptoms of hyperglycemia or hyperglycemic crisis, random plasma glucose results greater than or equal to 200 mg/dL meet the criteria for diagnosis of diabetes.Reference: Standards of Medical Care in Diabetes 2016, [place] [employer]. Diabetes Care. 2016.39(Suppl 1). Performed By: #### 1 9123-9, 82758-8, 80749-3 ####[facility] LABORATORYCLIA [id number] [place] [address] [place] Phosphate [Mass/Vol] 3.9 mg/dL Normal 2.7-4.8 [facility] Comment on above: Order Comment: Concetta coronado Type: BLOOD SPECIMENOrdering Facility: [facility] Address: [address] [place] [address] Performed By: #### 1 9123-9, 80393-6, 54746-1 ####[facility] LABORATORYCLIA [id number] [place] [id number] [place] Potassium [Moles/Vol] 3.9 mmol/L Normal 3.7-5.1 [facility] Comment on above: Order Comment: Concetta coronado Type: BLOOD SPECIMENOrdering Facility: [facility] Address: [address] [place] [address] Performed By: #### 1 9123-9, 11986-8, 27248-3 ####[facility] LABORATORYCLIA [id number] [place] [id number] [place] Sodium [Moles/Vol] 138 mmol/L Normal 136-144 [facility] Comment on above: Order Comment: Concetta coronado Type: BLOOD SPECIMENOrdering Facility: [facility] Address: [address] [place] [address] Performed By: #### 1 9123-9, 56483-7, 24147-2 ####[facility] LABORATORYCLIA [id number] [place] [address] [place] Urea nitrogen [Mass/Vol] 37 mg/dL High 9-24 [facility] Comment on above: Order Comment: Speci men Type: BLOOD SPECIMENOrdering Facility: [facility] Address: [address] [place] [address] Performed By: #### 1 9123-9, 36894-2, 33057-0 ####[facility]ORATORYCLIA [id number] [place] [id number] [place] THERAPY NTon 12-23-2024 THERAPY NT Normal [facility] THERAPY NT Normal [facility] XR CHEST 1V FRONTALon 2024 XR CHEST 1V FRONTAL Normal [facility] ALLIED HEALTHon 12-22-2024 ALLIED HEALTH Normal [facility] CASE MANAGEMon 12-22-2024 CASE MANAGEM Normal [facility] CBC W Auto Differential pane l (Bld)on 12-22-2024 Basophils (Bld) [#/Vol] 0.05 10*3/uL Normal <0.11 [facility] Comment on above: Order Comment: Speci men Type: BLOOD SPECIMENOrdering Facility: [facility] Address: [address] [place] [address] Performed By: #### 5 7021-8 ####[facility]ORATORYCLIA [id number] [place] [id number] [place] Basophils/100 WBC (Bld) 0.5 % Normal [facility] Comment on above: Order Comment: Speci men Type: BLOOD SPECIMENOrdering Facility: [facility] Address: [address] [place] [address] Performed By: #### 5 7021-8 ####[facility]ORATORYCLIA [id number] [place] [id number] [place] Differential cell count method Nom (Bld) Auto Normal [facility] Comment on above: Order Comment: Speci men Type: BLOOD SPECIMENOrdering Facility: [facility] Address: [address] [place] [address] Performed By: #### 5 7021-8 ####[facility]ORATORYCLIA [id number] [place] [id number] [place] Eosinophils (Bld) [#/Vol] 1.08 10*3/uL High <0.46 [facility] Comment on above: Order Comment: Speci men Type: BLOOD SPECIMENOrdering Facility: [facility] Address: [address] [place] [address] Performed By: #### 5 7021-8 ####[facility]ORATORYCLIA [id number] [place] [address] [place] Eosinophils/100 WBC (Bld) 11.6 % Normal [facility] Comment on above: Order Comment: Speci men Type: BLOOD SPECIMENOrdering Facility: [facility] Address: [address] [place] [address] Performed By: #### 5 7021-8 ####[facility]ORATORYCLIA [id number] [place] [address] [place] Erythrocyte distribution width (RBC) [Ratio] 15.9 % High 11.5-15.0 [facility] Comment on above: Order Comment: Speci men Type: BLOOD SPECIMENOrdering Facility: [facility] Address: [address] [place] [address] Performed By: #### 5 7021-8 ####[facility]ORATORYCLIA [id number] [address] [place] Hematocrit (Bld) [Volume fraction] 41.2 % Normal 39.0-51.0 [facility] Comment on above: Order Comment: Speci men Type: BLOOD SPECIMENOrdering Facility: [facility] Address: [address] [place] [address] Performed By: #### 5 7021-8 ####[facility]ORATORYCLIA [id number] [place] [address] [place] Hemoglobin (Bld) [Mass/Vol] 13.4 g/dL Normal 13.0-17.0 [facility] Comment on above: Order Comment: Speci men Type: BLOOD SPECIMENOrdering Facility: [facility] Address: [address] [place] [address] Performed By: #### 5 7021-8 ####[facility] LABORATORYCLIA [id number] [place] [address] [place] Immature granulocytes (Bld) [#/Vol] 0.04 10*3/uL Normal <0.10 [facility] Comment on above: Order Comment: Speci men Type: BLOOD SPECIMENOrdering Facility: [facility] Address: [address] [place] [address] Performed By: #### 5 7021-8 ####[facility] LABORATORYCLIA [id number] [address] Immature granulocytes/100 WBC (Bld) 0.4 % Normal [facility] Comment on above: Order Comment: Speci men Type: BLOOD SPECIMENOrdering Facility: [facility] Address: [address] [place] [address] Performed By: #### 5 7021-8 ####[facility]ORATORYCLIA [id number] [address] Lymphocytes (Bld) [#/Vol] 1.49 10*3/uL Normal 1.00-4.00 [facility] Comment on above: Order Comment: Speci men Type: BLOOD SPECIMENOrdering Facility: [facility] Address: [address] [place] [address] Performed By: #### 5 7021-8 ####[facility]ORATORYCLIA [id number] [address] Lymphocytes/100 WBC (Bld) 16.0 % Normal [facility] Comment on above: Order Comment: Speci men Type: BLOOD SPECIMENOrdering Facility: [facility] Address: [address] [place] [address] Performed By: #### 5 7021-8 ####[facility]ORATORYCLIA [id number] [place] [address] [place] MCH (RBC) [Entitic mass] 28.7 pg Normal 26.0-34.0 [facility] Comment on above: Order Comment: Speci men Type: BLOOD SPECIMENOrdering Facility: [facility] Address: [address] [place] [address] Performed By: #### 5 7021-8 ####[facility]ORATORYCLIA [id number] [place] [address] [place] MCHC (RBC) [Mass/Vol] 32.5 g/dL Normal 30.5-36.0 [facility] Comment on above: Order Comment: Speci men Type: BLOOD SPECIMENOrdering Facility: [facility] Address: [address] [place] [address] Performed By: #### 5 7021-8 ####[facility] LABORATORYCLIA [id number] [place] [id number] [place] MCV (RBC) [Entitic vol] 88.2 fL Normal 80.0-100.0 [facility] Comment on above: Order Comment: Speci men Type: BLOOD SPECIMENOrdering Facility: [facility] Address: [address] [place] [address] Performed By: #### 5 7021-8 ####[facility]ORATORYCLIA [id number] [place] [address] [place] Monocytes (Bld) [#/Vol] 0.70 10*3/uL Normal <0.87 [facility] Comment on above: Order Comment: Speci men Type: BLOOD SPECIMENOrdering Facility: [facility] Address: [address] [place] [address] Performed By: #### 5 7021-8 ####[facility] LABORATORYCLIA [id number] [address] [place] Monocytes/100 WBC (Bld) 7.5 % Normal [facility] Comment on above: Order Comment: Speci men Type: BLOOD SPECIMENOrdering Facility: [facility] Address: [address] [place] [address] Performed By: #### 5 7021-8 ####[facility]ORATORYCLIA [id number] [place] [id number] [place] Neutrophils (Bld) [#/Vol] 5.93 10*3/uL Normal 1.45-7.50 [facility] Comment on above: Order Comment: Speci men Type: BLOOD SPECIMENOrdering Facility: [facility] Address: [address] [place] [address] Performed By: #### 5 7021-8 ####[facility]ORATORYCLIA [id number] [place] [id number] [place] Neutrophils/100 WBC (Bld) 64.0 % Normal [facility] Comment on above: Order Comment: Speci men Type: BLOOD SPECIMENOrdering Facility: [facility] Address: [address] [place] [address] Performed By: #### 5 7021-8 ####[facility]ORATORYCLIA [id number] [place] [id number] [place] Nucleated RBC (Bld) [#/Vol] 10*3/uL Normal <0.01 [facility] Comment on above: Order Comment: Speci men Type: BLOOD SPECIMENOrdering Facility: [facility] Address: [address] [place] [address] Performed By: #### 5 7021-8 ####[facility]ORATORYCLIA [id number] [place] [address] [place] Nucleated RBC/100 WBC (Bld) [Ratio] 0.0 /100 WBC Normal [facility] Comment on above: Order Comment: Speci men Type: BLOOD SPECIMENOrdering Facility: [facility] Address: [address] [place] [address] Performed By: #### 5 7021-8 ####[facility] LABORATORYCLIA [id number] [place] [address] [place] Platelet mean volume (Bld) [Entitic vol] 9.2 fL Normal 9.0-12.7 [facility] Comment on above: Order Comment: Speci men Type: BLOOD SPECIMENOrdering Facility: [facility] Address: [address] [place] [address] Performed By: #### 5 7021-8 ####[place] [facility] LABORATORYCLIA [id number] [place] [id number] [place] Platelets (Bld) [#/Vol] 287 10*3/uL Normal 150-400 [facility] Comment on above: Order Comment: Speci men Type: BLOOD SPECIMENOrdering Facility: [facility] Address: [address] [place] [address] Performed By: #### 5 7021-8 ####[facility] LABORATORYCLIA [id number] [place] [id number] [place] RBC (Bld) [#/Vol] 4.67 10*6/uL Normal 4.20-6.00 [facility] Comment on above: Order Comment: Speci men Type: BLOOD SPECIMENOrdering Facility: [facility] Address: [address] [place] [address] Performed By: #### 5 7021-8 ####[facility] LABORATORYCLIA [id number] [place] [id number] [place] WBC (Bld) [#/Vol] 9.29 10*3/uL Normal 3.70-11.00 [facility] Comment on above: Order Comment: Speci men Type: BLOOD SPECIMENOrdering Facility: [facility] Address: [address] [place] [address] Performed By: #### 5 7021-8 ####[facility] LABORATORYCLIA [id number] [place] [id number] [place] CONSULT PROGon 12-22-2024 CONSULT PROG Normal [facility] CONSULT PROG Normal [facility] CONSULT PROG Normal [facility] CONSULT PROG Normal [facility] CONSULT PROG Normal [facility] CONSULT PRO Normal [facility] Magnesium SerPl-mCncon 12-22 Magnesium [Mass/Vol] 2.0 mg/dL Normal 1.7-2.3 [facility] Comment on above: Order Comment: Speci men Type: BLOOD SPECIMENOrdering Facility: [facility] Address: [address] [place] [address] Performed By: #### 2 4362-6, 36660-0 ####[facility] LABORATORYCLIA [id number] [place] [id number] [place] Renal function 2000 panelon 12-22-2024 Albumin [Mass/Vol] 3.0 g/dL Low 3.9-4.9 [facility] Comment on above: Order Comment: Speci men Type: BLOOD SPECIMENOrdering Facility: [facility] Address: [address] [place] [address] Performed By: #### 2 4362-6, ####[facility] LABORATORYCLIA [id number] [place] [id number] [place] Anion gap [Moles/Vol] 12 mmol/L Normal 8-15 [facility] Comment on above: Order Comment: Speci men Type: BLOOD SPECIMENOrdering Facility: [facility] Address: [address] [place] [address] Performed By: #### 2 43626, ####[facility] LABORATORYCLIA [id number] [place] [id number] [place] Calcium [Mass/Vol] 8.9 mg/dL Normal 8.5-10.2 [facility] Comment on above: Order Comment: Speci men Type: BLOOD SPECIMENOrdering Facility: [facility] Address: [address] [place] [address] Performed By: #### 2 43605-12, ####[facility] LABORATORYCLIA [id number] [place] [id number] [place] Chloride [Moles/Vol] 96 mmol/L Low 98-107 [facility] Comment on above: Order Comment: Speci men Type: BLOOD SPECIMENOrdering Facility: [facility] Address: [address] [place] [address] Performed By: #### 2 43605-12, ####[facility] LABORATORYCLIA [id number] [place] [id number] [place] CO2 [Moles/Vol] 29 mmol/L Normal 22-30 [facility] Comment on above: Order Comment: Speci men Type: BLOOD SPECIMENOrdering Facility: [facility] Address: [address] [place] [address] Performed By: #### 2 43605-12, ####[facility] LABORATORYCLIA [id number] [place] [id number] [place] Creatinine [Mass/Vol] 1.47 mg/dL High 0.73-1.22 [facility] Comment on above: Order Comment: Concetta coronado Type: BLOOD SPECIMENOrdering Facility: [facility] Address: [address] [place] [address] Performed By: #### 2 4362-6, ####[facility] LABORATORYCLIA [id number] [place] [id number] [place] eGFRcr SerPlBld CKD-EPI 2020 53 mL/min/1.73m??? Low >=60 [facility] Comment on above: Order Comment: Yadi cliff Type: BLOOD SPECIMENOrdering Facility: [facility] Address: [address] [place] [address] Result Comment: Matilda mated Glomerular Filtration Rate (eGFR) is calculated using the 2020 CKD-EPI creatinine equation. This equation utilizes serum creatinine, sex, and age as parameters. The creatinine assay has traceable calibration to isotope dilution-mass spectrometry. Refer to KDIGO guidelines for clinical interpretation. In patients with unstable renal function, e.g. those with acute kidney injury, the eGFR may not accurately reflect actual GFR. Performed By: #### 2 4362-6, ####[facility]ORATORYCLIA [id number] [place] [id number] [place] Glucose [Mass/Vol] 135 mg/dL High 74-99 [facility] Comment on above: Order Comment: Concetta coronado Type: BLOOD SPECIMENOrdering Facility: [facility] Address: [address] [place] [address] Result Comment: The [place] [employer] (ADA) provides guidance for cutoff values for fasting glucose and random glucose. The ADA defines fasting as no caloric intake for at least 8 hours. Fasting plasma glucose results between 100 to 125 mg/dL indicate increased risk for diabetes (prediabetes).Fasting plasma glucose results greater than or equal to 126 mg/dL meet the criteria for diagnosis of diabetes. In the absence of unequivocal hyperglycemia, results should be confirmed by repeat testing. In a patient with classic symptoms of hyperglycemia or hyperglycemic crisis, random plasma glucose results greater than or equal to 200 mg/dL meet the criteria for diagnosis of diabetes.Reference: Standards of Medical Care in Diabetes 2016, [place] [employer]. Diabetes Care. 2016.39(Suppl 1). Performed By: #### 2 4362-6, ####[facility] LABORATORYCLIA [id number] [place] [address] [place] Phosphate [Mass/Vol] 4.1 mg/dL Normal 2.7-4.8 [facility] Comment on above: Order Comment: Speci men Type: BLOOD SPECIMENOrdering Facility: [facility] Address: [address] [place] [address] Performed By: #### 2 4362-6, ####[facility] LABORATORYCLIA [id number] [place] [address] [place] Potassium [Moles/Vol] 4.4 mmol/L Normal 3.7-5.1 [facility] Comment on above: Order Comment: Speci men Type: BLOOD SPECIMENOrdering Facility: [facility] Address: [address] [place] [address] Performed By: #### 2 43605-12, ####[facility] LABORATORYCLIA [id number] [place] [id number] [place] Sodium [Moles/Vol] 137 mmol/L Normal 136-144 [facility] Comment on above: Order Comment: Speci men Type: BLOOD SPECIMENOrdering Facility: [facility] Address: [address] [place] [address] Performed By: #### 2 436-6, ####[facility] LABORATORYCLIA [id number] [place] [id number] [place] Urea nitrogen [Mass/Vol] 37 mg/dL High 9-24 [facility] Comment on above: Order Comment: Speci men Type: BLOOD SPECIMENOrdering Facility: [facility] Address: [address] [place] [address] Performed By: #### 2 4362-6, ####[facility]ORATORYCLIA [id number] [place] [address] [place] Vancomycin Prosperity SerPl-mCncon 12-22-2024 Vancomycin random [Mass/Vol] 19.8 ug/mL Normal 10.0-20.0 [facility] Comment on above: Order Comment: Speci men Type: BLOOD SPECIMENOrdering Facility: [facility] Address: [address] [place] [address] Result Comment: Refe rence ranges and high/low indicator flags are provided as general guidelines only. The treating physician must determine appropriate target levels/dosing based on the specific clinical situation. Performed By: #### 4 091-5 ####[facility]ORATORYCLIA [id number] [place] [address] [place] XR CHEST 1V FRONTALon 2024 XR CHEST 1V FRONTAL Normal [facility] CBC W Auto Differential pane l (Bld)on 12-21-2024 Basophils (Bld) [#/Vol] 0.04 10*3/uL Normal <0.11 [facility] Comment on above: Order Comment: Speci men Type: BLOOD SPECIMENOrdering Facility: [facility] Address: [address] [place] [address] Performed By: #### 5 7021-8 ####[facility]ORATORYCLIA [id number] [place] [address] [place] Basophils/100 WBC (Bld) 0.5 % Normal [facility] Comment on above: Order Comment: Speci men Type: BLOOD SPECIMENOrdering Facility: [facility] Address: [address] [place] [address] Performed By: #### 5 7021-8 ####[facility]ORATORYCLIA [id number] [place] [address] [place] Differential cell count method Nom (Bld) Auto Normal [facility] Comment on above: Order Comment: Speci men Type: BLOOD SPECIMENOrdering Facility: [facility] Address: [address] [place] [address] Performed By: #### 5 7021-8 ####[facility]ORATORYCLIA [id number] [place] [address] [place] Eosinophils (Bld) [#/Vol] 0.73 10*3/uL High <0.46 [facility] Comment on above: Order Comment: Speci men Type: BLOOD SPECIMENOrdering Facility: [facility] Address: [address] [place] [address] Performed By: #### 5 7021-8 ####[facility] LABORATORYCLIA [id number] [place] [address] [place] Eosinophils/100 WBC (Bld) 8.4 % Normal [facility] Comment on above: Order Comment: Speci men Type: BLOOD SPECIMENOrdering Facility: [facility] Address: [address] [place] [address] Performed By: #### 5 7021-8 ####[facility] LABORATORYCLIA [id number] [place] [address] [place] Erythrocyte distribution width (RBC) [Ratio] 15.8 % High 11.5-15.0 [facility] Comment on above: Order Comment: Speci men Type: BLOOD SPECIMENOrdering Facility: [facility] Address: [address] [place] [address] Performed By: #### 5 7021-8 ####[facility] LABORATORYCLIA [id number] [place] [address] [place] Hematocrit (Bld) [Volume fraction] 41.9 % Normal 39.0-51.0 [facility] Comment on above: Order Comment: Speci men Type: BLOOD SPECIMENOrdering Facility: [facility] Address: [address] [place] [address] Performed By: #### 5 7021-8 ####[facility] LABORATORYCLIA [id number] [place] [id number] [place] Hemoglobin (Bld) [Mass/Vol] 13.7 g/dL Normal 13.0-17.0 [facility] Comment on above: Order Comment: Speci men Type: BLOOD SPECIMENOrdering Facility: [facility] Address: [address] [place] [address] Performed By: #### 5 7021-8 ####[facility] LABORATORYCLIA [id number] [place] [address] [place] Immature granulocytes (Bld) [#/Vol] 0.03 10*3/uL Normal <0.10 [facility] Comment on above: Order Comment: Speci men Type: BLOOD SPECIMENOrdering Facility: [facility] Address: [address] [place] [address] Performed By: #### 5 7021-8 ####[facility]ORATORYCLIA [id number] [place] [id number] [place] Immature granulocytes/100 WBC (Bld) 0.3 % Normal [facility] Comment on above: Order Comment: Speci men Type: BLOOD SPECIMENOrdering Facility: [facility] Address: [address] [place] [address] Performed By: #### 5 7021-8 ####[facility] LABORATORYCLIA [id number] [place] [address] [place] Lymphocytes (Bld) [#/Vol] 2.05 10*3/uL Normal 1.00-4.00 [facility] Comment on above: Order Comment: Speci men Type: BLOOD SPECIMENOrdering Facility: [facility] Address: [address] [place] [address] Performed By: #### 5 7021-8 ####[facility]ORATORYCLIA [id number] [place] [address] [place] [facility] Lymphocytes/100 WBC (Bld) 23.7 % Normal [facility] Comment on above: Order Comment: Speci men Type: BLOOD SPECIMENOrdering Facility: [facility] Address: [address] [place] [address] Performed By: #### 5 7021-8 ####[facility] LABORATORYCLIA [id number] [place] [id number] [place] MCH (RBC) [Entitic mass] 28.3 pg Normal 26.0-34.0 [facility] Comment on above: Order Comment: Speci men Type: BLOOD SPECIMENOrdering Facility: [facility] Address: [address] [place] [address] Performed By: #### 5 7021-8 ####[facility] LABORATORYCLIA [id number] [place] [address] [place] MCHC (RBC) [Mass/Vol] 32.7 g/dL Normal 30.5-36.0 [facility] Comment on above: Order Comment: Speci men Type: BLOOD SPECIMENOrdering Facility: [facility] Address: [address] [place] [address] Performed By: #### 5 7021-8 ####[facility] LABORATORYCLIA [id number] [place] [id number] [place] MCV (RBC) [Entitic vol] 86.6 fL Normal 80.0-100.0 [facility] Comment on above: Order Comment: Speci men Type: BLOOD SPECIMENOrdering Facility: [facility] Address: [address] [place] [address] Performed By: #### 5 7021-8 ####[facility]ORATORYCLIA [id number] [place] [address] [place] Monocytes (Bld) [#/Vol] 0.59 10*3/uL Normal <0.87 [facility] Comment on above: Order Comment: Speci men Type: BLOOD SPECIMENOrdering Facility: [facility] Address: [address] [place] [address] Performed By: #### 5 7021-8 ####[facility]ORATORYCLIA [id number] [address] [place] Monocytes/100 WBC (Bld) 6.8 % Normal [facility] Comment on above: Order Comment: Speci men Type: BLOOD SPECIMENOrdering Facility: [facility] Address: [address] [place] [address] Performed By: #### 5 7021-8 ####[facility] LABORATORYCLIA [id number] [place] [address] [place] Neutrophils (Bld) [#/Vol] 5.22 10*3/uL Normal 1.45-7.50 [facility] Comment on above: Order Comment: Speci men Type: BLOOD SPECIMENOrdering Facility: [facility] Address: [address] [place] [address] Performed By: #### 5 7021-8 ####[facility] LABORATORYCLIA [id number] [place] [id number] [place] Neutrophils/100 WBC (Bld) 60.3 % Normal [facility] Comment on above: Order Comment: Speci men Type: BLOOD SPECIMENOrdering Facility: [facility] Address: [address] [place] [address] Performed By: #### 5 7021-8 ####[facility] LABORATORYCLIA [id number] [place] [address] [place] Nucleated RBC (Bld) [#/Vol] 10*3/uL Normal <0.01 [facility] Comment on above: Order Comment: Speci men Type: BLOOD SPECIMENOrdering Facility: [facility] Address: [address] [place] [address] Performed By: #### 5 7021-8 ####[facility] LABORATORYCLIA [id number] [place] [address] [place] Nucleated RBC/100 WBC (Bld) [Ratio] 0.0 /100 WBC Normal [facility] Comment on above: Order Comment: Speci men Type: BLOOD SPECIMENOrdering Facility: [facility] Address: [address] [place] [address] Performed By: #### 5 7021-8 ####[facility] LABORATORYCLIA [id number] [place] [address] [place] Platelet mean volume (Bld) [Entitic vol] 9.3 fL Normal 9.0-12.7 [facility] Comment on above: Order Comment: Speci men Type: BLOOD SPECIMENOrdering Facility: [facility] Address: [address] [place] [address] Performed By: #### 5 7021-8 ####[facility]ORATORYCLIA [id number] [place] [address] [place] Platelets (Bld) [#/Vol] 295 10*3/uL Normal 150-400 [facility] Comment on above: Order Comment: Speci men Type: BLOOD SPECIMENOrdering Facility: [facility] Address: [address] [place] [address] Performed By: #### 5 7021-8 ####[facility]ORATORYCLIA [id number] [place] [id number] [place] RBC (Bld) [#/Vol] 4.84 10*6/uL Normal 4.20-6.00 [facility] Comment on above: Order Comment: Speci men Type: BLOOD SPECIMENOrdering Facility: [facility] Address: [facility] [place] [address] Performed By: #### 5 7021-8 ####[facility] LABORATORYCLIA [id number] [place] [id number] [place] WBC (Bld) [#/Vol] 8.66 10*3/uL Normal 3.70-11.00 [facility] Comment on above: Order Comment: Speci men Type: BLOOD SPECIMENOrdering Facility: [facility] Address: [address] [place] [address] Performed By: #### 5 7021-8 ####[facility]ORATORYCLIA [id number] [place] [id number] [facility] OF [facility] CONSULT PROGon 12-21-2024 CONSULT PROG Normal [facility] CONSULT PROG Normal [facility] CONSULT PROG Normal [facility] CONSULT PROG Normal [facility] CONSULT PROG Normal [facility] CONSULT PROG Normal [facility] ECG COMPLETEon 12-21-2024 ECG COMPLETE Normal [facility] Magnesium SerPl-mCncon 12-21 Magnesium [Mass/Vol] 1.8 mg/dL Normal 1.7-2.3 [facility] Comment on above: Order Comment: Speci men Type: BLOOD SPECIMENOrdering Facility: [facility] Address: [address] [place] [address] Performed By: #### 1 9123-9, 04722-3 ####[facility] LABORATORYCLIA [id number] [place] [id number] [place] Renal function 2000 panelon 12-21-2024 Albumin [Mass/Vol] 3.0 g/dL Low 3.9-4.9 [facility] Comment on above: Order Comment: Speci men Type: BLOOD SPECIMENOrdering Facility: [facility] Address: [address] [place] [address] Performed By: #### 1 9123-9, 87982-0 ####[facility] LABORATORYCLIA [id number] [place] [id number] [place] Anion gap [Moles/Vol] 12 mmol/L Normal 8-15 [facility] Comment on above: Order Comment: Speci men Type: BLOOD SPECIMENOrdering Facility: [facility] Address: [address] [place] [address] Performed By: #### 1 9123-9, 49945-6 ####[facility] LABORATORYCLIA [id number] [place] [id number] [place] Calcium [Mass/Vol] 9.1 mg/dL Normal 8.5-10.2 [facility] Comment on above: Order Comment: Speci men Type: BLOOD SPECIMENOrdering Facility: [facility] Address: [address] [place] [address] Performed By: #### 1 9123-9, 75830-9 ####[facility] LABORATORYCLIA [id number] [place] [address] [place] Chloride [Moles/Vol] 98 mmol/L Normal 98-107 [facility] Comment on above: Order Comment: Speci men Type: BLOOD SPECIMENOrdering Facility: [facility] Address: [address] [place] [address] Performed By: #### 1 9123-9, 42569-2 ####[facility] LABORATORYCLIA [id number] [place] [id number] [place] CO2 [Moles/Vol] 27 mmol/L Normal 22-30 [facility] Comment on above: Order Comment: Speci men Type: BLOOD SPECIMENOrdering Facility: [facility] Address: [address] [place] [address] Performed By: #### 1 9123-9, 76623-5 ####[facility] LABORATORYCLIA [id number] [place] [id number] [place] Creatinine [Mass/Vol] 1.43 mg/dL High 0.73-1.22 [facility] Comment on above: Order Comment: Concetta coronado Type: BLOOD SPECIMENOrdering Facility: [facility] Address: [address] [place] [address] Performed By: #### 1 9123-9, 61420-9 ####[facility] LABORATORYCLIA [id number] [place] [id number] [place] eGFRcr SerPlBld CKD-EPI 2020 55 mL/min/1.73m??? Low >=60 [facility] Comment on above: Order Comment: Yadi cliff Type: BLOOD SPECIMENOrdering Facility: [facility] Address: [address] [place] [address] Result Comment: Matilda mated Glomerular Filtration Rate (eGFR) is calculated using the 2020 CKD-EPI creatinine equation. This equation utilizes serum creatinine, sex, and age as parameters. The creatinine assay has traceable calibration to isotope dilution-mass spectrometry. Refer to KDIGO guidelines for clinical interpretation. In patients with unstable renal function, e.g. those with acute kidney injury, the eGFR may not accurately reflect actual GFR. Performed By: #### 1 9123-9, 26179-0 ####[facility]ORATORYCLIA [id number] [place] [id number] [place] Glucose [Mass/Vol] 96 mg/dL Normal 74-99 [facility] Comment on above: Order Comment: Concetta coronado Type: BLOOD SPECIMENOrdering Facility: [facility] Address: [address] [place] [address] Result Comment: The [place] [employer] (ADA) provides guidance for cutoff values for fasting glucose and random glucose. The ADA defines fasting as no caloric intake for at least 8 hours. Fasting plasma glucose results between 100 to 125 mg/dL indicate increased risk for diabetes (prediabetes).Fasting plasma glucose results greater than or equal to 126 mg/dL meet the criteria for diagnosis of diabetes. In the absence of unequivocal hyperglycemia, results should be confirmed by repeat testing. In a patient with classic symptoms of hyperglycemia or hyperglycemic crisis, random plasma glucose results greater than or equal to 200 mg/dL meet the criteria for diagnosis of diabetes.Reference: Standards of Medical Care in Diabetes 2016, [place] [employer]. Diabetes Care. 2016.39(Suppl 1). Performed By: #### 1 9123-9, 30436-6 ####[facility] LABORATORYCLIA [id number] [place] [address] [place] Phosphate [Mass/Vol] 3.9 mg/dL Normal 2.7-4.8 [facility] Comment on above: Order Comment: Speci men Type: BLOOD SPECIMENOrdering Facility: [facility] Address: [address] [place] [address] Performed By: #### 1 9123-9, 12802-4 ####[facility] LABORATORYCLIA [id number] [place] [id number] [place] Potassium [Moles/Vol] 4.4 mmol/L Normal 3.7-5.1 [facility] Comment on above: Order Comment: Speci men Type: BLOOD SPECIMENOrdering Facility: [facility] Address: [address] [place] [address] Performed By: #### 1 9123-9, 38659-8 ####[facility] LABORATORYCLIA [id number] [place] [id number] [place] Sodium [Moles/Vol] 137 mmol/L Normal 136-144 [facility] Comment on above: Order Comment: Speci men Type: BLOOD SPECIMENOrdering Facility: [facility] Address: [address] [place] [address] Performed By: #### 1 9123-9, 91125-9 ####[facility]ORATORYCLIA [id number] [place] [id number] [place] Urea nitrogen [Mass/Vol] 35 mg/dL High 9-24 [facility] [facility] Comment on above: Order Comment: Speci men Type: BLOOD SPECIMENOrdering Facility: [facility] Address: [address] [place] [address] Performed By: #### 1 9123-9, 68335-9 ####[facility] LABORATORYCLIA [id number] [place] [id number] [place] THERAPY NTon 12-21-2024 THERAPY NT Normal [facility] THERAPY NT Normal [facility] Vancomycin Prosperity SerPl-mCncon 12-21-2024 Vancomycin random [Mass/Vol] 27.8 ug/mL High 10.0-20.0 [facility] Comment on above: Order Comment: Speci men Type: BLOOD SPECIMENOrdering Facility: [facility] Address: [address] [place] [address] Result Comment: Refe rence ranges and high/low indicator flags are provided as general guidelines only. The treating physician must determine appropriate target levels/dosing based on the specific clinical situation. Performed By: #### 4 091-5 ####[facility]ORATORYCLIA [id number] [place] [address] [place] ALLIED HEALTHon 12-20-2024 ALLIED HEALTH Normal [facility] Bacteria Bld Culton 12-21-19 25 Bacteria identified Cx Nom (Bld) CULTURE, BLOOD: No growth 5 days Normal [facility] Comment on above: Performed By: #### 6 00-7 ####[facility] LABCLIA [id number] [address] [place] [address] [place] Bacteria identified Cx Nom (Bld) CULTURE, BLOOD: No growth 5 days Normal [facility] Comment on above: Performed By: #### 6 00-7 ####[facility] LABCLIA [id number] [address] [place] [address] [place] Bacteria Wnd Culton 12-21-19 25 Bacteria identified Cx Nom (Wound) Abnormal [facility] Comment on above: Performed By: #### 6 462-6 ####[facility] LABCLIA [id number] [address] [place] [address] [place] Basic Metabolic Profile (BMP )on 12-20-2024 BUN Normal - [facility] Comment on above: Result Comment: Canc elled via OM: Order cancelled - Patient discharged Performed By: #### L 100.0100, L500.2500 ####[facility] [address] [place], [address] BUN/CRE Normal 10-20 [facility] Comment on above: Result Comment: Canc elled via OM: Order cancelled - Patient discharged Performed By: #### L 100.0100, L500.2500 ####[facility] [address] [place], [address] Calcium Normal 7.6-11.0 [facility] Comment on above: Result Comment: Canc elled via OM: Order cancelled - Patient discharged Performed By: #### L 100.0100, L500.2500 ####[facility] [address] [place], [address] CL Normal 98-108 [facility] Comment on above: Result Comment: Canc elled via OM: Order cancelled - Patient discharged Performed By: #### L 100.0100, L500.2500 ####[facility] [address] [place], [address] CO2 Normal 21.0-32.0 [facility] Comment on above: Result Comment: Canc elled via OM: Order cancelled - Patient discharged Performed By: #### L 100.0100, L500.2500 ####[facility] [address] [place], [address] CREAT,SERUM Normal 0.70-1.20 [facility] Comment on above: Result Comment: Canc elled via OM: Order cancelled - Patient discharged Performed By: #### L 100.0100, L500.2500 ####[facility] [address] [place], [address] eGFR Normal >60 [facility] Comment on above: Result Comment: Canc elled via OM: Order cancelled - Patient discharged Performed By: #### L 100.0100, L500.2500 ####[facility] [address] [place], [address] GAP Normal 5-15 [facility] Comment on above: Result Comment: Canc elled via OM: Order cancelled - Patient discharged Performed By: #### L 100.0100, L500.2500 ####[facility] [address] [place], [address] GLU Normal 70-99 [facility] Comment on above: Result Comment: Canc elled via OM: Order cancelled - Patient discharged Performed By: #### L 100.0100, L500.2500 ####[facility] [address] [place], [address] Potassium Normal 3.3-5.1 [facility] Comment on above: Result Comment: Canc elled via OM: Order cancelled - Patient discharged Performed By: #### L 100.0100, L500.2500 ####[facility] [address] [place], [address] Basic Metabolic Profile (BMP) Normal 133-145 [facility] Comment on above: Result Comment: Canc elled via OM: Order cancelled - Patient discharged Performed By: #### L 100.0100, L500.2500 ####[facility] [address] [place], [address] CASE MGT INIT ASSESon 2024 CASE MGT INIT ASSES Normal [facility] CBC W Auto Differential pane l (Bld)on 12-20-2024 Basophils (Bld) [#/Vol] 0.05 10*3/uL Normal <0.11 [facility] Comment on above: Order Comment: Speci men Type: BLOOD SPECIMENOrdering Facility: [facility] Address: [address] [place] [address] Performed By: #### 5 7021-8 ####[facility]ORATORYCLIA [id number] [place] [address] [place]#### 02956-5 ####[facility] LABCLIA [id number] [address] [address] [place] Basophils/100 WBC (Bld) 0.5 % Normal [facility] Comment on above: Order Comment: Speci men Type: BLOOD SPECIMENOrdering Facility: [facility] Address: [address] [place] [address] Performed By: #### 5 7021-8 ####[facility]ORATORYCLIA [id number] [place] [address] [place]#### 14324-9 ####[facility] LABCLIA [id number] [place] [address] [place] Differential cell count method Nom (Bld) Auto Normal [facility] Comment on above: Order Comment: Speci men Type: BLOOD SPECIMENOrdering Facility: [facility] Address: [address] [place] [address] Performed By: #### 5 7021-8 ####[facility]ORATORYCLIA [id number] [place] [address] [place]#### 85722-0 ####[facility] LABCLIA [id number] [place] [address] [place] Eosinophils (Bld) [#/Vol] 0.51 10*3/uL High <0.46 [facility] Comment on above: Order Comment: Speci men Type: BLOOD SPECIMENOrdering Facility: [facility] Address: [address] [place] [address] Performed By: #### 5 7021-8 ####[facility]ORATORYCLIA [id number] [place] [address] [place]#### 43757-7 ####[facility] LABCLIA [id number] [place] [address] [place] Eosinophils/100 WBC (Bld) 5.3 % Normal [facility] Comment on above: Order Comment: Speci men Type: BLOOD SPECIMENOrdering Facility: [facility] Address: [address] [place] [address] Performed By: #### 5 7021-8 ####[facility]ORATORYCLIA [id number] [place] [address] [place]#### 10110-0 ####[facility] LABCLIA [id number] [place] [address] [place] Erythrocyte distribution width (RBC) [Ratio] 15.9 % High 11.5-15.0 [facility] Comment on above: Order Comment: Speci men Type: BLOOD SPECIMENOrdering Facility: [facility] Address: [address] [place] [address] Performed By: #### 5 7021-8 ####[facility]ORATORYCLIA [id number] [place] [address] [place]#### 16271-3 ####[facility] LABCLIA [id number] [place] [address] [place] Hematocrit (Bld) [Volume fraction] 42.8 % Normal 39.0-51.0 [facility] Comment on above: Order Comment: Speci men Type: BLOOD SPECIMENOrdering Facility: [facility] Address: [address] [place] [address] Performed By: #### 5 7021-8 ####[facility]ORATORYCLIA [id number] [place] [address] [place]#### 94260-4 ####[facility] LABCLIA [id number] [place] [address] [place] Hemoglobin (Bld) [Mass/Vol] 13.8 g/dL Normal 13.0-17.0 [facility] Comment on above: Order Comment: Speci men Type: BLOOD SPECIMENOrdering Facility: [facility] Address: [address] [place] [address] Performed By: #### 5 7021-8 ####[facility]ORATORYCLIA [id number] [place] [address] [place]#### 00680-8 ####[facility] LABCLIA [id number] [place] [address] [place] Immature granulocytes (Bld) [#/Vol] 0.03 10*3/uL Normal <0.10 [facility] Comment on above: Order Comment: Speci men Type: BLOOD SPECIMENOrdering Facility: [facility] Address: [address] [place] [address] Performed By: #### 5 7021-8 ####[facility]ORATORYCLIA [id number] [place] [address] [place]#### 01139-8 ####[facility] LABCLIA [id number] [place] [address] [place] Immature granulocytes/100 WBC (Bld) 0.3 % Normal [facility] Comment on above: Order Comment: Speci men Type: BLOOD SPECIMENOrdering Facility: [facility] Address: [address] [place] [address] Performed By: #### 5 7021-8 ####[facility]ATORYCLIA [id number] [place] [address] [place]#### 21892-0 ####[facility] LABCLIA [id number] [place] [address] [place] Lymphocytes (Bld) [#/Vol] 1.93 10*3/uL Normal 1.00-4.00 [facility] Comment on above: Order Comment: Speci men Type: BLOOD SPECIMENOrdering Facility: [facility] Address: [address] [place] [address] Performed By: #### 5 7021-8 ####[facility]ATORYCLIA [id number] [place] [address] [place]#### 82894-9 ####[facility] LABCLIA [id number] [place] [address] [place] Lymphocytes/100 WBC (Bld) 20.0 % Normal [facility] Comment on above: Order Comment: Speci men Type: BLOOD SPECIMENOrdering Facility: [facility] Address: [address] [place] [address] Performed By: #### 5 7021-8 ####[facility] LABORATORYCLIA [id number] [address] [place]#### 05380-0 ####[facility] LABCLIA [id number] [place] [address] [place] MCH (RBC) [Entitic mass] 28.5 pg Normal 26.0-34.0 [facility] Comment on above: Order Comment: Speci men Type: BLOOD SPECIMENOrdering Facility: [facility] Address: [address] [place] [address] Performed By: #### 5 7021-8 ####[facility] LABORATORYCLIA [id number] [address] STATES [facility]#### 26768-7 ####[facility] LABCLIA [id number] [place] [address] [place] MCHC (RBC) [Mass/Vol] 32.2 g/dL Normal 30.5-36.0 [facility] Comment on above: Order Comment: Speci men Type: BLOOD SPECIMENOrdering Facility: [facility] Address: [address] [place] [address] Performed By: #### 5 7021-8 ####[facility]ORATORYCLIA [id number] [address] [place]#### 36208-5 ####[facility] LABCLIA [id number] [address] [place] MCV (RBC) [Entitic vol] 88.4 fL Normal 80.0-100.0 [facility] Comment on above: Order Comment: Speci men Type: BLOOD SPECIMENOrdering Facility: [facility] Address: [address] [place] [address] Performed By: #### 5 7021-8 ####[facility]ATORYCLIA [id number] [place] [address] [place]#### 56414-4 ####[facility] LABCLIA [id number] [place] [address] [place] Monocytes (Bld) [#/Vol] 0.75 10*3/uL Normal <0.87 [facility] Comment on above: Order Comment: Speci men Type: BLOOD SPECIMENOrdering Facility: [facility] Address: [address] [place] [address] Performed By: #### 5 7021-8 ####[facility]ATORYCLIA [id number] [place] [address] [place]#### 69820-3 ####[facility] LABCLIA [id number] [place] [address] [place] Monocytes/100 WBC (Bld) 7.8 % Normal [facility] Comment on above: Order Comment: Speci men Type: BLOOD SPECIMENOrdering Facility: [facility] Address: [address] [place] [address] Performed By: #### 5 7021-8 ####[facility]ATORYCLIA [id number] [place] [address] [place]#### 18304-4 ####[facility] LABCLIA [id number] [place] [address] [place] Neutrophils (Bld) [#/Vol] 6.36 10*3/uL Normal 1.45-7.50 [facility] Comment on above: Order Comment: Speci men Type: BLOOD SPECIMENOrdering Facility: [facility] Address: [address] [place] [address] Performed By: #### 5 7021-8 ####[facility]ATORYCLIA [id number] [place] [address] [place]#### 20385-6 ####[facility] LABCLIA [id number] [place] [address] [place] Neutrophils/100 WBC (Bld) 66.1 % Normal [facility] Comment on above: Order Comment: Speci men Type: BLOOD SPECIMENOrdering Facility: [facility] Address: [address] [place] [address] Performed By: #### 5 7021-8 ####[facility]ATORYCLIA [id number] [place] [address] [place]#### 77782-4 ####[facility] LABCLIA [id number] [place] [address] [place] Nucleated RBC (Bld) [#/Vol] 10*3/uL Normal <0.01 [facility] Comment on above: Order Comment: Speci men Type: BLOOD SPECIMENOrdering Facility: [facility] Address: [address] [place] [address] Performed By: #### 5 7021-8 ####[facility]ATORYCLIA [id number] [place] [address] [place]#### 75773-0 ####[facility] LABCLIA [id number] [place] [address] [place] Nucleated RBC/100 WBC (Bld) [Ratio] 0.0 /100 WBC Normal [facility] Comment on above: Order Comment: Speci men Type: BLOOD SPECIMENOrdering Facility: [facility] Address: [address] [place] [address] Performed By: #### 5 7021-8 ####[facility]ATORYCLIA [id number] [place] [address] [place]#### 16853-6 ####[facility] LABCLIA [id number] [place] [address] [place] Platelet mean volume (Bld) [Entitic vol] 9.2 fL Normal 9.0-12.7 [facility] Comment on above: Order Comment: Speci men Type: BLOOD SPECIMENOrdering Facility: [facility] Address: [address] [place] [address] Performed By: #### 5 7021-8 ####[facility]ORATORYCLIA [id number] [place] [address] [place]#### 39948-2 ####[facility] LABCLIA [id number] [facility] [place] [address] [place] Platelets (Bld) [#/Vol] 321 10*3/uL Normal 150-400 [facility] Comment on above: Order Comment: Speci men Type: BLOOD SPECIMENOrdering Facility: [facility] Address: [address] [place] [address] Performed By: #### 5 7021-8 ####[facility]ORATORYCLIA [id number] [place] [address] [place]#### 94033-8 ####[facility] LABCLIA [id number] [facility] [address] [place] RBC (Bld) [#/Vol] 4.84 10*6/uL Normal 4.20-6.00 [facility] Comment on above: Order Comment: Speci men Type: BLOOD SPECIMENOrdering Facility: [facility] Address: [address] [place] [address] Performed By: #### 5 7021-8 ####[facility]ATORYCLIA [id number] [place] [address] [place]#### 70594-0 ####[facility] LABCLIA [id number] [facility] [place] [id number] [place] WBC (Bld) [#/Vol] 9.63 10*3/uL Normal 3.70-11.00 [facility] Comment on above: Order Comment: Speci men Type: BLOOD SPECIMENOrdering Facility: [facility] Address: [address] [place] [address] Performed By: #### 5 7021-8 ####[facility]ORATORYCLIA [id number] [place] [address] [place]#### 14776-2 ####[facility] LABCLIA [id number] [address] [address] [place] CBC W/Diff, Automatedon 09-1 Absolute Neut Normal 2.0-7.7 [facility] Comment on above: Result Comment: Canc elled via OM: Order cancelled - Patient discharged Performed By: #### L 100.0100, L500.2500 ####[facility] [address] [place], [address] HCT Normal 40-54 [facility] Comment on above: Result Comment: Canc elled via OM: Order cancelled - Patient discharged Performed By: #### L 100.0100, L500.2500 ####[facility] [address] [place], [address] HGB Normal 13.0-16.5 [facility] Comment on above: Result Comment: Canc elled via OM: Order cancelled - Patient discharged Performed By: #### L 100.0100, L500.2500 ####[facility] [address] [place], [address] MCH Normal 27.0-32.0 [facility] Comment on above: Result Comment: Canc elled via OM: Order cancelled - Patient discharged Performed By: #### L 100.0100, L500.2500 ####[facility] [address] [place], [address] MCHC Normal 32-36 [facility] Comment on above: Result Comment: Canc elled via OM: Order cancelled - Patient discharged Performed By: #### L 100.0100, L500.2500 ####[facility] [address] [place], [address] MCV Normal 80-94 [facility] Comment on above: Result Comment: Canc elled via OM: Order cancelled - Patient discharged Performed By: #### L 100.0100, L500.2500 ####[facility] [address] [place], [address] NEUT% Normal 47-70 [facility] Comment on above: Result Comment: Canc elled via OM: Order cancelled - Patient discharged Performed By: #### L 100.0100, L500.2500 ####[facility] [address] [place], [address] PLT Normal 150-450 [facility] Comment on above: Result Comment: Canc elled via OM: Order cancelled - Patient discharged Performed By: #### L 100.0100, L500.2500 ####[facility] [address] [place], [address] RBC Normal 4.6-6.2 [facility] Comment on above: Result Comment: Canc elled via OM: Order cancelled - Patient discharged Performed By: #### L 100.0100, L500.2500 ####[facility] [address] [place], [address] RDW CV Normal 11.6-14.6 [facility] Comment on above: Result Comment: Canc elled via OM: Order cancelled - Patient discharged Performed By: #### L 100.0100, L500.2500 ####[facility] [address] [place], [address] RDW SD Normal 35.1-43.9 [facility] Comment on above: Result Comment: Canc elled via OM: Order cancelled - Patient discharged Performed By: #### L 100.0100, L500.2500 ####[facility] [address] [place], [address] WBC Normal 4.4-11.0 [facility] Comment on above: Result Comment: Canc elled via OM: Order cancelled - Patient discharged Performed By: #### L 100.0100, L500.2500 ####[facility] [address] [place], [address] CONSULTon 12-20-2024 CONSULT Normal [facility] CONSULT Normal [facility] CONSULT Normal [facility] CONSULT Normal [facility] CONSULT Normal [facility] CONSULT Normal [facility] CONSULT PROGon 12-20-2024 CONSULT PROG Normal [facility] CRP SerPl-mCncon 12-20-2024 CRP [Mass/Vol] 4.4 mg/dL High <0.9 [facility] Comment on above: Order Comment: Speci men Type: BLOOD SPECIMENOrdering Facility: [facility] Address: [address] [place] [address] Performed By: #### T ZAHRAA, 25610-5, 1987-08, 60582-9, 36109-6, 77921-7 ####[facility] LABORATORYCLIA [id number] [place] [address] [place] BRAIN WO IVCONon 12-21-[address] BRAIN WO IVCON Normal [facility] CT CHEST WO IVCONon 12-21-[address] CHEST WO IVCON Normal [facility] CTA ABD/PEL/LOWER EXT W IVCO Non 12-20-2024 CTA ABD/PEL/LOWER EXT W IVCON Normal [facility] Comprehensive metabolic 2000 panelon 12-20-2024 Albumin [Mass/Vol] 3.1 g/dL Low 3.9-4.9 [facility] Comment on above: Order Comment: Speci men Type: BLOOD SPECIMENOrdering Facility: [facility] Address: [address] [place] [address] Performed By: #### T GENNARO, 97530-0, 1987-08, 95575-6, 60457-3, 13111-2 ####[facility] LABORATORYCLIA [id number] [place] [address] [place] ALP [Catalytic activity/Vol] 249 U/L High 38-113 [facility] Comment on above: Order Comment: Speci men Type: BLOOD SPECIMENOrdering Facility: [facility] Address: [address] [place] [address] Performed By: #### T ZAHRAA, 54133-7, 1987-08, 03203-0, 82676-1, 12410-8 ####[facility] LABORATORYCLIA [id number] [place] [id number] [place] ALT [Catalytic activity/Vol] 37 U/L Normal 10-54 [facility] Comment on above: Order Comment: Speci men Type: BLOOD SPECIMENOrdering Facility: [facility] Address: [address] [place] [address] Performed By: #### T ZAHRAA, 68257-2, 1987-08, 64186-2, 31310-4, 69096-6 ####[facility] LABORATORYCLIA [id number] [place] [id number] [place] Anion gap [Moles/Vol] 14 mmol/L Normal 8-15 [facility] Comment on above: Order Comment: Speci men Type: BLOOD SPECIMENOrdering Facility: [facility] Address: [address] [place] [address] Performed By: #### [place], 99714-6, 1987-08, 77802-9, 50550-5, 46209-7 ####[facility]ORATORYCLIA [id number] [place] [id number] [place] AST [Catalytic activity/Vol] 46 U/L High 14-40 [facility] Comment on above: Order Comment: Speci men Type: BLOOD SPECIMENOrdering Facility: [facility] Address: [address] [place] [address] Performed By: #### T ZAHRAA, 67983-5, 1987-08, 45183-0, 15435-5, 36133-5 ####[facility]ORATORYCLIA [id number] [place] [id number] [place] Bilirubin [Mass/Vol] 1.2 mg/dL Normal 0.2-1.3 [facility] Comment on above: Order Comment: Speci men Type: BLOOD SPECIMENOrdering Facility: [facility] Address: [address] [place] [address] Performed By: #### T ZAHRAA, 61728-9, 1987-08, 45708-1, 48286-1, 73208-0 ####[facility] LABORATORYCLIA [id number] [place] [address] [place] Calcium [Mass/Vol] 8.9 mg/dL Normal 8.5-10.2 [facility] Comment on above: Order Comment: Speci men Type: BLOOD SPECIMENOrdering Facility: [facility] Address: [address] [place] [address] Performed By: #### T ZAHRAA, 95095-0, 1987-08, 90511-5, 17415-8, 00917-8 ####[facility] LABORATORYCLIA [id number] [place] [id number] [place] Chloride [Moles/Vol] 98 mmol/L Normal 98-107 [facility] Comment on above: Order Comment: Speci men Type: BLOOD SPECIMENOrdering Facility: [facility] Address: [address] [place] [address] Performed By: #### T ZAHRAA, 50991-8, 1987-08, 32108-1, 31137-2, 59391-1 ####RUBY LABORATORYCLIA [id number] [place] [id number] [place] CO2 [Moles/Vol] 25 mmol/L Normal 22-30 [facility] Comment on above: Order Comment: Speci men Type: BLOOD SPECIMENOrdering Facility: [facility] Address: [address] [place] [address] Performed By: #### T ZAHRAA, , 1987-08, 69746-0, 26469-9, 88043-1 ####RU[facility] LABORATORYCLIA [id number] [place] [id number] [place] Creatinine [Mass/Vol] 1.31 mg/dL High 0.73-1.22 [facility] Comment on above: Order Comment: Speci men Type: BLOOD SPECIMENOrdering Facility: [facility] Address: [address] [place] [address] Performed By: #### T [facility], 85800-9, 1987-08, 22874-6, 67374-7, 25358-9 ####[facility] LABORATORYCLIA [id number] [place] [id number] [place] eGFRcr SerPlBld CKD-EPI 2020 61 mL/min/1.73m??? Normal >=60 [facility] Comment on above: Order Comment: Concetta coronado Type: BLOOD SPECIMENOrdering Facility: [facility] Address: [address] [place] [address] Result Comment: Matilda mated Glomerular Filtration Rate (eGFR) is calculated using the 2020 CKD-EPI creatinine equation. This equation utilizes serum creatinine, sex, and age as parameters. The creatinine assay has traceable calibration to isotope dilution-mass spectrometry. Refer to KDIGO guidelines for clinical interpretation. In patients with unstable renal function, e.g. those with acute kidney injury, the eGFR may not accurately reflect actual GFR. Performed By: #### T [facility], 03034-7, 1987-08, 97852-9, 37149-9, 08738-2 ####[facility] LABORATORYCLIA [id number] [place] [id number] [place] Glucose [Mass/Vol] 142 mg/dL High 74-99 [facility] Comment on above: Order Comment: Concetta coronado Type: BLOOD SPECIMENOrdering Facility: [facility] Address: [address] [place] [address] Result Comment: The [place] Diabetes Association (ADA) provides guidance for cutoff values for fasting glucose and random glucose. The ADA defines fasting as no caloric intake for at least 8 hours. Fasting plasma glucose results between 100 to 125 mg/dL indicate increased risk for diabetes (prediabetes).Fasting plasma glucose results greater than or equal to 126 mg/dL meet the criteria for diagnosis of diabetes. In the absence of unequivocal hyperglycemia, results should be confirmed by repeat testing. In a patient with classic symptoms of hyperglycemia or hyperglycemic crisis, random plasma glucose results greater than or equal to 200 mg/dL meet the criteria for diagnosis of diabetes.Reference: Standards of Medical Care in Diabetes 2016, [place] Diabetes Association. Diabetes Care. 2016.39(Suppl 1). Performed By: #### T [facility], , 1987-08, 76273-9, 84047-7, 58378-6 ####RUBY LABORATORYCLIA [id number] [place] [address] [place] Potassium [Moles/Vol] 4.7 mmol/L Normal 3.7-5.1 [facility] Comment on above: Order Comment: Speci men Type: BLOOD SPECIMENOrdering Facility: [facility] Address: [address] [place] [address] Performed By: #### T ZAHRAA, , 1987-08, 64628-8, 53302-5, 81372-9 ####RUBY LABORATORYCLIA [id number] [place] [id number] [place] Protein [Mass/Vol] 7.3 g/dL Normal 6.3-8.0 [facility] Comment on above: Order Comment: Speci men Type: BLOOD SPECIMENOrdering Facility: [facility] Address: [address] [place] [address] Performed By: #### T GENNARO, , 1987-08, 49378-8, 79759-5, 26548-4 ####RUBY LABORATORYCLIA [id number] [place] [id number] [place] Sodium [Moles/Vol] 137 mmol/L Normal 136-144 [facility] Comment on above: Order Comment: Speci men Type: BLOOD SPECIMENOrdering Facility: [facility] Address: [facility] [place] [address] Performed By: #### T ZAHRAA, , 1987-08, 04471-5, 72304-2, 96531-3 ####RUBY LABORATORYCLIA [id number] [place] [address] [place] Urea nitrogen [Mass/Vol] 29 mg/dL High 9-24 [facility] Comment on above: Order Comment: Speci men Type: BLOOD SPECIMENOrdering Facility: [facility] Address: [address] [place] [address] Performed By: #### T GENNARO, , 1987-08, 09171-6, 08426-9, 18847-6 ####[facility] LABORATORYCLIA [id number] [place] [id number] [place] ECG COMPLETEon 12-20-2024 ECG COMPLETE Normal [facility] ESR Westergren method (Bld) [Velocity]on 12-20-2024 ESR (Bld) [Velocity] 9 mm/h Normal 0-15 [facility] Comment on above: Order Comment: Speci men Type: BLOOD SPECIMENOrdering Facility: [facility] Address: [address] [place] [address] Performed By: #### 4 537-7 ####[facility] LABCLIA [id number] [place] [address] [place] Gas and Carbon monoxide pane l (BldV)on 12-20-2024 Base excess Calc (BldV) [Moles/Vol] 4 mmol/L High 0-2 [facility] Comment on above: Order Comment: Speci men Type: VENOUS BLOOD SPECIMENOrdering Facility: [facility] Address: [address] [place] [address] Performed By: #### 2 4344-4 ####[facility] LABORATORYCLIA [id number] [place] [id number] [place] Body temperature 98.24 [degF] Normal [facility] Comment on above: Order Comment: Speci men Type: VENOUS BLOOD SPECIMENOrdering Facility: [facility] Address: [address] [place] [address] Performed By: #### 2 4344-4 ####[facility] LABORATORYCLIA [id number] [place] [id number] [place] Calcium.ionized (Bld) [Mass/Vol] 1.03 mmol/L Low 1.08-1.30 [facility] Comment on above: Order Comment: Speci men Type: VENOUS BLOOD SPECIMENOrdering Facility: [facility] Address: [facility] [place] [address] Performed By: #### 2 4344-4 ####[facility] LABORATORYCLIA [id number] [place] [address] [place] Calcium.ionized adjusted to pH 7.4 (BldA) [Moles/Vol] 1.06 mmol/L Low 1.08-1.30 [facility] Comment on above: Order Comment: Speci men Type: VENOUS BLOOD SPECIMENOrdering Facility: [facility] Address: [address] [place] [address] Performed By: #### 2 4344-4 ####[facility] LABORATORYCLIA [id number] [place] [address] [place] Carboxyhemoglobin (BldV) [Mass fraction] 2.4 % High 0.0-2.0 [facility] Comment on above: Order Comment: Speci men Type: VENOUS BLOOD SPECIMENOrdering Facility: [facility] Address: [address] [place] [address] Result Comment: Carb oxyhemoglobin Reference Range for Smokers: 2.0-8.0% Performed By: #### 2 4344-4 ####[facility] LABORATORYCLIA [id number] [place] [address] [place] Chloride [Moles/Vol] 102 mmol/L Normal 97-105 [facility] Comment on above: Order Comment: Speci men Type: VENOUS BLOOD SPECIMENOrdering Facility: [facility] Address: [address] [place] [address] Performed By: #### 2 4344-4 ####[facility] LABORATORYCLIA [id number] [place] [address] [place] CO2 (BldV) [Partial pressure] 42 mm[Hg] Normal 42-55 [facility] Comment on above: Order Comment: Speci men Type: VENOUS BLOOD SPECIMENOrdering Facility: [facility] Address: [address] [place] [address] Performed By: #### 2 4344-4 ####[facility] LABORATORYCLIA [id number] [address] [place] CO2 adjusted to patient's actual temperature (BldV) [Partial pressure] Normal [facility] Comment on above: Order Comment: Speci men Type: VENOUS BLOOD SPECIMENOrdering Facility: [facility] Address: [address] [place] [address] Performed By: #### 2 4344-4 ####[facility] LABORATORYCLIA [id number] [place] [id number] [place] Glucose [Mass/Vol] 147 mg/dL High 60-105 [facility] Comment on above: Order Comment: Speci men Type: VENOUS BLOOD SPECIMENOrdering Facility: [facility] Address: [address] [place] [address] Performed By: #### 2 4344-4 ####[facility] LABORATORYCLIA [id number] [place] [id number] [place] HCO3 (Bld) [Moles/Vol] 28 mmol/L Normal 24-28 [facility] Comment on above: Order Comment: Speci men Type: VENOUS BLOOD SPECIMENOrdering Facility: [facility] Address: [address] [place] [address] Performed By: #### 2 4344-4 ####[facility] LABORATORYCLIA [id number] [place] [address] [place] Hematocrit (Bld) [Volume fraction] 43.7 % Normal 39.0-51.0 [facility] Comment on above: Order Comment: Speci men Type: VENOUS BLOOD SPECIMENOrdering Facility: [facility] Address: [address] [place] [address] Performed By: #### 2 4344-4 ####[facility] LABORATORYCLIA [id number] [place] [id number] [place] Hemoglobin (Bld) [Mass/Vol] 14.3 g/dL Normal 13.0-17.0 [facility] Comment on above: Order Comment: Speci men Type: VENOUS BLOOD SPECIMENOrdering Facility: [facility] Address: [address] [place] [address] Performed By: #### 2 4344-4 ####[facility] LABORATORYCLIA [id number] [place] [id number] [place] Lactate [Moles/Vol] 3.8 mmol/L High 0.5-2.2 [facility] Comment on above: Order Comment: Speci men Type: VENOUS BLOOD SPECIMENOrdering Facility: [facility] Address: [address] [place] [address] Performed By: #### 2 4344-4 ####[facility] LABORATORYCLIA [id number] [place] [id number] [place] Methemoglobin (Bld) [Mass fraction] 0.5 % Normal 0.0-1.5 [facility] Comment on above: Order Comment: Speci men Type: VENOUS BLOOD SPECIMENOrdering Facility: [facility] Address: [address] [place] [address] Performed By: #### 2 4344-4 ####[facility] LABORATORYCLIA [id number] [address] O2 THERAPY NC = Nasal Cannula Normal [facility] Comment on above: Order Comment: Speci men Type: VENOUS BLOOD SPECIMENOrdering Facility: [facility] Address: [address] [place] [address] Performed By: #### 2 4344-4 ####[facility] LABORATORYCLIA [id number] [address] [place] Oxygen (BldV) [Partial pressure] 78 mm[Hg] High 35-45 [facility] Comment on above: Order Comment: Speci men Type: VENOUS BLOOD SPECIMENOrdering Facility: [facility] Address: [address] [place] [address] Performed By: #### 2 4344-4 ####[facility] LABORATORYCLIA [id number] [place] [id number] [facility] OF THEO Oxygen adjusted to patient's actual temperature (BldV) [Partial pressure] Normal [facility] Comment on above: Order Comment: Speci men Type: VENOUS BLOOD SPECIMENOrdering Facility: [facility] Address: [address] [place] [address] Performed By: #### 2 4344-4 ####[facility] LABORATORYCLIA [id number] [place] [id number] [place] Oxygen saturation in Venous blood 94 % High 60-85 [facility] Comment on above: Order Comment: Speci men Type: VENOUS BLOOD SPECIMENOrdering Facility: [facility] Address: [address] [place] [address] Performed By: #### 2 4344-4 ####[facility] LABORATORYCLIA [id number] [place] [id number] [place] Oxyhemoglobin (BldV) [Mass fraction] 92 % High 60-85 [facility] Comment on above: Order Comment: Speci men Type: VENOUS BLOOD SPECIMENOrdering Facility: [facility] Address: [address] [place] [address] Performed By: #### 2 4344-4 ####[facility] LABORATORYCLIA [id number] [place] [address] [place] pH (BldV) 7.44 [pH] High 7.32-7.42 [facility] Comment on above: Order Comment: Speci men Type: VENOUS BLOOD SPECIMENOrdering Facility: [facility] Address: [address] [place] [address] Performed By: #### 2 4344-4 ####[facility] LABORATORYCLIA [id number] [place] [address] [place] pH adjusted to patient's actual temperature (BldV) Normal [facility] Comment on above: Order Comment: Speci men Type: VENOUS BLOOD SPECIMENOrdering Facility: [facility] Address: [address] [place] [address] Performed By: #### 2 4344-4 ####[facility] LABORATORYCLIA [id number] [place] [id number] [place] Potassium [Moles/Vol] 4.5 mmol/L Normal 3.5-5.0 [facility] Comment on above: Order Comment: Speci men Type: VENOUS BLOOD SPECIMENOrdering Facility: [facility] Address: [address] [place] [address] Performed By: #### 2 4344-4 ####[facility] LABORATORYCLIA [id number] [place] [id number] [place] Sodium [Moles/Vol] 136 mmol/L Normal 136-144 [facility] Comment on above: Order Comment: Concetta cliff Type: VENOUS BLOOD SPECIMENOrdering Facility: [facility] Address: [address] [place] [address] Performed By: #### 2 4344-4 ####[facility] LABORATORYCLIA [id number] [place] [address] [place] Gram Stainon 12-20-2024 GS Negative Normal [facility] Comment on above: Performed By: #### M 100.3000, M100.4001, M100.2000 ####[facility] [id number] [place], [address] HISTORY PHYSICALon HISTORY PHYSICAL Normal [facility] HbA1c (Bld)on 12-20-2024 Average glucose Estimated from glycated hemoglobin (Bld) [Mass/Vol] 200 mg/dL Normal [facility] Comment on above: Order Comment: Concetta coronado Type: BLOOD SPECIMENOrdering Facility: [facility] Address: [address] [place] [address] Result Comment: eAG: (Estimated average glucose) is a calculated value from HgbA1c and is field marketing representative of the average blood glucose level in the last 2-3 month period. Performed By: #### 5 7021-8 ####[facility] LABORATORYCLIA [id number] [place] [address] [place]#### 03898-8 ####[facility] LABCLIA [id number] [place] [address] [place] HbA1c (Bld) [Mass fraction] 8.6 % High 4.3-5.6 [facility] Comment on above: Order Comment: Concetta cliff Type: BLOOD SPECIMENOrdering Facility: [facility] Address: [address] [place] [address] Result Comment: [place] Diabetes Association guidelines indicate that patients with HgbA1c in the range 5.7-6.4% are at increased risk for development of diabetes, and intervention by lifestyle modification may be beneficial. HgbA1c greater or equal to 6.5% is considered diagnostic of diabetes. Performed By: #### 5 7021-8 ####[facility] LABORATORYCLIA [id number] [place] [address] [place]#### 62638-9 ####[facility] LABCLIA [id number] [place] [address] [place] Lactate (Bld) [Moles/Vol]on 12-20-2024 Lactate [Moles/Vol] 3.4 mmol/L High 0.5-2.2 [facility] Comment on above: Order Comment: Specphaneuf hospital Type: BLOOD SPECIMENOrdering Facility: [facility] Address: [address] [place] [address] Performed By: #### 3 2693-4 ####[facility] LABORATORYCLIA [id number] [place] [address] [place] Legionella Ag Ur Qlon 2024 Legionella sp Ag Ql (U) Negative Normal Negative [facility] Comment on above: Order Comment: Speci men Type: URINE SPECIMENOrdering Facility: [facility] Address: [address] [place] [address] Result Comment: Legi onella urinary antigen test is used as an aid in diagnosis of infection with Legionella pneumophila serogroup 1. It may be detected from a few days to several months after onset of signs and symptoms despite antibiotic therapy or disease resolution. A negative result cannot exclude Legionellosis. Clinical correlation is required. Performed By: #### 3 2781-7 ####[facility] LABCLIA [id number] [place] [address] [place] Lipid 1996 panelon Cholesterol [Mass/Vol] 87 mg/dL Normal <200 [facility] Comment on above: Order Comment: Speci men Type: BLOOD SPECIMENOrdering Facility: [facility] Address: [address] [place] [address] Result Comment: <200 mg/dL, Desirable 200-239 mg/dL, Borderline high>239 mg/dL, High Performed By: #### T [facility], 72662-5, 1987-08, , , ####[facility] LABORATORYCLIA [id number] [address] Cholesterol in HDL [Mass/Vol] 30 mg/dL Low >39 [facility] Comment on above: Order Comment: Speci men Type: BLOOD SPECIMENOrdering Facility: [facility] Address: [address] [place] [address] Result Comment: 40-5 9 mg/dL, Acceptable>59 mg/dL, High: Negative risk factor for coronary heart disease<40 mg/dL, Low: Positive risk factor for coronary heart disease Performed By: #### T [facility], , 1987-08, , , ####[facility] LABORATORYCLIA [id number] [address] Cholesterol in LDL [Mass/Vol] 38 mg/dL Normal <100 [facility] Comment on above: Order Comment: Speci men Type: BLOOD SPECIMENOrdering Facility: [facility] Address: [address] [place] [address] Result Comment: <100 mg/dL, Optimal 100-129 mg/dL, Near optimal/above optimal 130-159 mg/dL, Borderline high 160-189 mg/dL, High>189 mg/dL, Very highSecondary prevention optimal LDL Cholesterol levels are recommended to be <70 mg/dLLDL cholesterol is calculated using the Tripathi-NIH equation. Performed By: #### T [facility], , 1987-08, , , ####[facility] LABORATORYCLIA [id number] [place] [id number] [facility] Cholesterol in LDL/Cholesterol in HDL [Mass ratio] 1.27 {ratio} Normal <2.54 [facility] Comment on above: Order Comment: Speci men Type: BLOOD SPECIMENOrdering Facility: [facility] Address: [address] [place] [address] Result Comment: Refe rence:1. National Cholesterol Education Program ATP III Guideline At-A-Glance Quick Desk Reference: National Heart, Lung, and Blood [place]. National Institutes of Health. 2001: NIH Publication No. 01-3305.2. An International Atherosclerosis Society position paper: global recommendations for the management of dyslipidemia: executive summary, Atherosclerosis. 2014: 232(2):410-413. Performed By: #### T ZAHRAA, , 1987-08, 24786-7, 06254-6, 27259-9 ####[facility] LABORATORYCLIA [id number] [place] [id number] [place] Cholesterol in VLDL [Mass/Vol] 13 mg/dL Normal <30 [facility] Comment on above: Order Comment: Speci men Type: BLOOD SPECIMENOrdering Facility: [facility] Address: [address] [place] [address] Performed By: #### T ZAHRAA, , 1987-08, 40370-1, 70599-6, 16987-9 ####[facility] LABORATORYCLIA [id number] [place] [address] [place] Cholesterol non HDL [Mass/Vol] 57 mg/dL Normal <130 [facility] Comment on above: Order Comment: Speci men Type: BLOOD SPECIMENOrdering Facility: [facility] Address: [address] [place] [address] Result Comment: <130 mg/dL, Optimal 130-159 mg/dL, Near optimal/above optimal 160-189 mg/dL, Borderline high 190-219 mg/dL, High>219 mg/dL, Very highSecondary prevention optimal non HDL Cholesterol levels are recommended to be <100 mg/dL Performed By: #### T ZAHRAA, , 1987-08, , , 12322-6 ####[facility] LABORATORYCLIA [id number] [place] [address] [place] Cholesterol.total/Chol esterol in HDL [Mass ratio] 2.90 {ratio} Normal <5.10 [facility] Comment on above: Order Comment: Speci men Type: BLOOD SPECIMENOrdering Facility: [facility] Address: [address] [place] [address] Performed By: #### T ZAHRAA, , 1987-08, 95857-1, 65595-3, 41715-6 ####[facility] LABORATORYCLIA [id number] [place] [id number] [place] FASTING TIME Normal [facility] Comment on above: Order Comment: Speci men Type: BLOOD SPECIMENOrdering Facility: [facility] Address: [address] [place] [address] Result Comment: Unkn own Performed By: #### T ZAHRAA, , 1987-08, 14229-2, 93900-2, 46844-0 ####[facility] LABORATORYCLIA [id number] [place] [address] [place] Triglyceride [Mass/Vol] 96 mg/dL Normal <150 [facility] Comment on above: Order Comment: Speci men Type: BLOOD SPECIMENOrdering Facility: [facility] Address: [address] [place] [address] Result Comment: <150 mg/dL, Normal 150-199 mg/dL, Borderline high 200-499 mg/dL, High>499 mg/dL, Very high Performed By: #### T ZAHRAA, , 1987-08, 29139-4, 52761-3, 79630-5 ####[facility] LABORATORYCLIA [id number] [place] [id number] [place] [facility] Natriuretic peptide.B prohormone N-Terminal [Mass/Vol] 55028 pg/mL High <125 [facility] Comment on above: Order Comment: Speci men Type: BLOOD SPECIMENOrdering Facility: [facility] Address: [address] [place] [address] Performed By: #### T ZAHRAA, , 1987-08, 73997-6, 18471-9, 32701-6 ####[facility] LABORATORYCLIA [id number] [place] [id number] [place] NURSING PROGon 12-20-2024 NURSING PROG Normal [facility] PT panel Coag (PPP)on 2024 INR Coag (PPP) [Relative time] 1.4 {INR} High 0.9-1.3 [facility] Comment on above: Order Comment: Concetta coronado Type: BLOOD SPECIMENOrdering Facility: [facility] Address: [address] [place], [place] [address] Result Comment: Deborah min K Antagonist (VKA) Therapeutic Range: INR 2 to 3 (Target INR of 2.5)Note: For patients treated with VKA drugs, such as warfarin, the [place] [employer] 2012 Guideline recommends a therapeutic INR range of 2 to 3 (target INR of 2.5). This recommendation includes high-risk patients with antiphospholipid syndrome with previous arterial or venous thromboembolism, current-generation mechanical or bioprosthetic aortic heart valve replacement.Note: Patients with mechanical aortic valve replacement and additional risk factors for thromboembolic events (atrial fibrillation, previous thromboembolism, LV dysfunction, hypercoagulable conditions) or an older generation mechanical AVR (i.e., ball in-Cage) or any mechanical MVR should have a INR therapeutic range of 2.5 to 3.5 (target INR of 3).Devaughn GH, et al. Chest 2012, 141:7S-47SNishimalvaro RA, et al. [facility] 2017, 70: 252-289 Performed By: #### 3 4528-0 ####[facility] LABORATORYCLIA [id number] [place] [address] [place] PT Coag (PPP) [Time] 15.3 s High 9.7-13.0 [facility] Comment on above: Order Comment: Concetta coronado Type: BLOOD SPECIMENOrdering Facility: [facility] Address: [address] [id number] Performed By: #### 3 4528-0 ####[facility] LABORATORYCLIA [id number] [place] [address] [place] PVR LEG FELIPE VAS LABon 2024 PVR LEG FELIPE VAS LAB Normal [facility] Procalcitonin SerPl-mCncon 0 12-20-2024 Procalcitonin [Mass/Vol] 0.19 ng/mL High <0.09 [facility] Comment on above: Order Comment: Concetta coronado Type: BLOOD SPECIMENOrdering Facility: [facility] Address: [address] [place] [address] Result Comment: For a guided interpretation of test results, please visit the Change in Procalcitonin Calculator, [email or web address]. Performed By: #### T SHRF, 97245-9, 1988-5, 00666-8, 22019-6, 60565-8 ####[facility] LABORATORYCLIA [id number] [place] [id number] [place] Prot/Creat Uron 12-20-2024 Protein/Creatinine (U) [Mass ratio] 0.37 mg/mg High <0.15 [facility] Comment on above: Order Comment: Speci men Type: URINE SPECIMENOrdering Facility: [facility] Address: [address] [place] [address] Result Comment: Adul t Proteinuria Categories:<0.15 mg/mg is considered normal to mildly increased0.15 - 0.50 mg/mg is considered moderately increased>0.50 mg/mg is considered severely increasedKDIGO. (2013). KDIGO 2012 Clinical Practice Guideline for the Evaluation and Management of Chronic Kidney Disease. Official Journal of the International Society of Nephrology, 3(1), 1-150. Performed By: #### 2 890-2 ####[facility] LABORATORYCLIA [id number] [place] [id number] [place] Protein/Creatinine (U) [Mass ratio]on 12-20-2024 Creatinine (U) [Mass/Vol] 91.8 mg/dL Normal 20.0-300.0 [facility] Comment on above: Order Comment: Speci men Type: URINE SPECIMENOrdering Facility: [facility] Address: [address] [place] [address] Performed By: #### 2 890-2 ####[facility] LABORATORYCLIA [id number] [place] [id number] [place] Protein (U) [Mass/Vol] 34 mg/dL High 0-20 [facility] Comment on above: Order Comment: Speci men Type: URINE SPECIMENOrdering Facility: [facility] Address: [address] [place] [address] Performed By: #### 2 890-2 ####[facility]ORATORYCLIA [id number] [place] [address] [place] STAPHYLOCOCCUS AUREUS AND MR SA SCREEN, PCR, NASALon 12-20-2024 S. aureus and MRSA panel HAYDER+probe (Nose) Methicillin-SUSCEPTIBLE Staphylococcus aureus Detected Abnormal Not Detected [facility] Comment on above: Order Comment: Speci men Type: SWABOrdering Facility: [facility] Address: [address] [place] [address] Performed By: #### S APCR ####[facility] LABCLIA [id number] [address] [place] STREPTOCOCCUS PNEUMONIAE ANT IGEN URINEon 12-20-2024 STREPTOCOCCUS PNEUMONIAE ANTIGEN URINE Normal [facility] Comment on above: Performed By: #### S PNAG ####[facility] LABCLIA [id number] [place] [address] [place] TSH W/REFLEX FT4on 5 TSH Qn 2.630 m[IU]/L Normal 0.270-4.20 0 [facility] Comment on above: Order Comment: Speci men Type: BLOOD SPECIMENOrdering Facility: [facility] Address: [address] [place] [address] Performed By: #### T [facility], 66234-0, 1988-5, 19194-6, 23864-5, 63544-3 ####[facility] LABORATORYCLIA [id number] [address] [place] TYPE + SCREENon 12-20-2024 ABO A Normal [facility] Comment on above: Order Comment: Speci men Type: BLOOD SPECIMENOrdering Facility: [facility] Address: [address] [place] [address] Performed By: #### T SCR ####[facility] BLOOD BANKCLIA [id number] [place] [address] [place] Rh Nom (Bld) Positive Normal [facility] Comment on above: Order Comment: Speci men Type: BLOOD SPECIMENOrdering Facility: [facility] Address: [address] [place] [address] Performed By: #### T SCR ####[facility] BLOOD BANKCLIA [id number] [place] [id number] [facility] TYPE AND SCREEN EXPIRATION 12/23/2024 23:59 Normal [facility] Comment on above: Order Comment: Speci men Type: BLOOD SPECIMENOrdering Facility: [facility] Address: [address] [place] [address] Performed By: #### T SCR ####[facility] BLOOD BANKCLIA [id number] [place] [address] [place] Urinalysis complete pnl Uron 12-20-2024 Bilirubin Ql (U) Negative Normal Negative [facility] Comment on above: Order Comment: Speci men Type: URINE SPECIMENOrdering Facility: [facility] Address: [address] [place] [address] Performed By: #### 2 4356-8, [id number] ####[facility] LABORATORYCLIA [id number] [place] [address] [place] Clarity (Unsp spec) Clear Normal Clear [facility] Comment on above: Order Comment: Speci men Type: URINE SPECIMENOrdering Facility: [facility] Address: [address] [place] [address] Performed By: #### 2 4356-8, [id number] ####[facility] LABORATORYCLIA [id number] [place] [id number] [place] Color (U) Yellow Normal Yellow [facility] Comment on above: Order Comment: Speci men Type: URINE SPECIMENOrdering Facility: [facility] Address: [address] [place] [address] Performed By: #### 2 4356-8, [id number] ####[facility] LABORATORYCLIA [id number] [place] [id number] [place] Epithelial cells LM.HPF (Urine sed) [#/Area] Few Normal [facility] Comment on above: Order Comment: Speci men Type: URINE SPECIMENOrdering Facility: [facility] Address: [address] [place] [address] Performed By: #### 2 4356-8, [id number] ####[facility] LABORATORYCLIA [id number] [place] [address] [place] [facility] Glucose Test strip (U) [Mass/Vol] 2+ Abnormal Trace, Negative [facility] Comment on above: Order Comment: Speci men Type: URINE SPECIMENOrdering Facility: [facility] Address: [address] [place] [address] Performed By: #### 2 4356-8, [id number] ####[facility] LABORATORYCLIA [id number] [place] [address] [place] Hemoglobin Ql (U) Negative Normal Negative, Trace [facility] Comment on above: Order Comment: Speci men Type: URINE SPECIMENOrdering Facility: [facility] Address: [address] [place] [address] Performed By: #### 2 4356-8, [id number] ####[facility] LABORATORYCLIA [id number] [place] [address] [place] Hyaline casts (Urine sed) [#/Area] /[LPF] Abnormal 0 /LPF [facility] Comment on above: Order Comment: Speci men Type: URINE SPECIMENOrdering Facility: [facility] Address: [address] [place] [address] Performed By: #### 2 4356-8, [id number] ####[facility] LABORATORYCLIA [id number] [place] [address] [place] Ketones Ql (U) Negative Normal Negative, Trace [facility] Comment on above: Order Comment: Speci men Type: URINE SPECIMENOrdering Facility: [facility] Address: [address] [place] [address] Performed By: #### 2 4356-8, [id number] ####[facility] LABORATORYCLIA [id number] [place] [address] [place] Leukocyte esterase Test strip Ql (U) Negative Normal Negative, 25 [place]ina/uL [facility] Comment on above: Order Comment: Speci men Type: URINE SPECIMENOrdering Facility: [facility] Address: [address] [place] [address] Performed By: #### 2 4356-8, [id number] ####[facility] LABORATORYCLIA [id number] [place] [address] [place] Nitrite Ql (U) Negative Normal Negative [facility] Comment on above: Order Comment: Speci men Type: URINE SPECIMENOrdering Facility: [facility] Address: [address] [place] [address] Performed By: #### 2 4356-8, [id number] ####[facility] LABORATORYCLIA [id number] [place] [address] [place] pH (U) 5.5 [pH] Normal 5.0-8.0 [facility] Comment on above: Order Comment: Speci men Type: URINE SPECIMENOrdering Facility: [facility] Address: [address] [place] [address] Performed By: #### 2 4356-8, [id number] ####[facility] LABORATORYCLIA [id number] [place] [address] [place] Protein (U) [Mass/Vol] 1+ Abnormal Trace , Negative [facility] Comment on above: Order Comment: Speci men Type: URINE SPECIMENOrdering Facility: [facility] Address: [address] [place] [address] Performed By: #### 2 4356-8, [id number] ####[facility] LABORATORYCLIA [id number] [place] [address] [place] RBC LM.HPF (Urine sed) [#/Area] 0-3 /HPF Normal 0-3 /HPF [facility] Comment on above: Order Comment: Speci men Type: URINE SPECIMENOrdering Facility: [facility] Address: [address] [place] [address] Performed By: #### 2 4356-8, [id number] ####[facility] LABORATORYCLIA [id number] [place] [address] [place] Specific gravity (U) [Rel density] 1.022 Normal 1.005-1.03 0 [facility] Comment on above: Order Comment: Speci men Type: URINE SPECIMENOrdering Facility: [facility] Address: [address] [place] [address] Performed By: #### 2 4356-8, [id number] ####[facility]ORATORYCLIA [id number] [place] [address] [place] Urobilinogen Ql (U) Normal Normal Normal [facility] Comment on above: Order Comment: Speci men Type: URINE SPECIMENOrdering Facility: [facility] Address: [address] [place] [address] Performed By: #### 2 4356-8, [id number] ####[facility]ORATORYCLIA [id number] [place] [address] [place] WBC LM.HPF (Urine sed) [#/Area] 0-5 /HPF Normal 0-5 /HPF [facility] Comment on above: Order Comment: Speci men Type: URINE SPECIMENOrdering Facility: [facility] Address: [address] [place] [address] Performed By: #### 2 4356-8, [id number] ####[facility] LABORATORYCLIA [id number] [place] [address] [place] 12 Lead EKGon 12-19-2024 12 Lead EKG Normal [facility] Bedside Glucoseon 12-19-2024 FINGERSTICK GLU 148 mg/dL High 74-106 [facility] Comment on above: Result Comment: SNEHA GEMENT OF PATIENT CARE PER NURSING PROTOCOL Performed By: #### L 501.080 ####[facility] [address] [place], [place], [address] FINGERSTICK GLU 112 mg/dL High 74-106 [facility] Comment on above: Result Comment: SNEHA GEMENT OF PATIENT CARE PER NURSING PROTOCOL Performed By: #### L 501.080 ####[facility] [address] [place], [place], [address] CBC W/Diff, Automatedon 09-1 5-2025 Absolute Lymph 1.81 X10 3/uL Normal 0.83-4.51 [facility] Comment on above: Performed By: #### L 100.0100, L503.6005, L503.7505, L501.6710, L101.9900, L300.3900 ####[facility] [address] [place], [address] Absolute Neut 6.6 X10 3/uL Normal 2.0-7.7 [facility] Comment on above: Performed By: #### L 100.0100, L503.6005, L503.7505, L501.6710, L101.9900, L300.3900 ####[facility] [address] [place], [address] Basophils/100 WBC (Bld) 0.3 % Normal 0-1 [facility] Comment on above: Performed By: #### L 100.0100, L503.6005, L503.7505, L501.6710, L101.9900, L300.3900 ####[facility] [address] [place], [address] Eosinophils/100 WBC (Bld) 8.2 % High 0-5 [facility] Comment on above: Performed By: #### L 100.0100, L503.6005, L503.7505, L501.6710, L101.9900, L300.3900 ####[facility] [address] [place], [address] Erythrocyte distribution width (RBC) [Ratio] 16.8 % High 11.6-14.6 [facility] Comment on above: Performed By: #### L 100.0100, L503.6005, L503.7505, L501.6710, L101.9900, L300.3900 ####[facility] [address] [place], [address] Hematocrit (Bld) [Volume fraction] 43.2 % Normal 40-54 [facility] Comment on above: Performed By: #### L 100.0100, L503.6005, L503.7505, L501.6710, L101.9900, L300.3900 ####[facility] [address] [place], [address] Hemoglobin (Bld) [Mass/Vol] 13.9 g/dL Normal 13.0-16.5 [facility] Comment on above: Performed By: #### L 100.0100, L503.6005, L503.7505, L501.6710, L101.9900, L300.3900 ####[facility] [address] [place], [address] IG% 0.300 Normal 0.0-0.9 [facility] Comment on above: Result Comment: IG% - Immature Granulocytes (promyelocytes, myelocytes andmetamyelocytes) > 1% indicates that a LEFT SHIFT is Present. Performed By: #### L 100.0100, L503.6005, L503.7505, L501.6710, L101.9900, L300.3900 ####[facility] [address] [place], [address] Lymphocytes/100 WBC (Bld) 18.2 % Low 19-41 [facility] Comment on above: Performed By: #### L 100.0100, L503.6005, L503.7505, L501.6710, L101.9900, L300.3900 ####[facility] [address] [place], [address] MCH (RBC) [Entitic mass] 29.0 pg Normal 27.0-32.0 [facility] Comment on above: Performed By: #### L 100.0100, L503.6005, L503.7505, L501.6710, L101.9900, L300.3900 ####[facility] [address] [place], [address] MCHC (RBC) [Mass/Vol] 32.2 g/dL Normal 32-36 [facility] Comment on above: Performed By: #### L 100.0100, L503.6005, L503.7505, L501.6710, L101.9900, L300.3900 ####[facility] [address] [place], [address] MCV (RBC) [Entitic vol] 90.0 fL Normal 80-94 [facility] Comment on above: Performed By: #### L 100.0100, L503.6005, L503.7505, L501.6710, L101.9900, L300.3900 ####[facility] [address] [place], [address] Monocytes/100 WBC (Bld) 6.3 % Normal 0-10 [facility] Comment on above: Performed By: #### L 100.0100, L503.6005, L503.7505, L501.6710, L101.9900, L300.3900 ####[facility] [address] [place], [address] Neutrophils/100 WBC (Bld) 66.7 % Normal 47-70 [facility] Comment on above: Performed By: #### L 100.0100, L503.6005, L503.7505, L501.6710, L101.9900, L300.3900 ####[facility] [address] [place], [address] Nucleated RBC (Bld) [#/Vol] 0 10*3/uL Normal 0-5 [facility] Comment on above: Performed By: #### L 100.0100, L503.6005, L503.7505, L501.6710, L101.9900, L300.3900 ####[facility] [address] [place], [address] Platelet mean volume (Bld) [Entitic vol] 10.0 fL Normal 6.2-12.0 [facility] Comment on above: Performed By: #### L 100.0100, L503.6005, L503.7505, L501.6710, L101.9900, L300.3900 ####[facility] [address] [place], [address] Platelets (Bld) [#/Vol] 339 10*3/uL Normal 150-450 [facility] Comment on above: Performed By: #### L 100.0100, L503.6005, L503.7505, L501.6710, L101.9900, L300.3900 ####[facility] [address] [place], [address] RBC (Bld) [#/Vol] 4.80 10*6/uL Normal 4.6-6.2 [facility] Comment on above: Performed By: #### L 100.0100, L503.6005, L503.7505, L501.6710, L101.9900, L300.3900 ####[facility] [address] [place], [address] RDW SD 54.1 fl High 35.1-43.9 [facility] Comment on above: Performed By: #### L 100.0100, L503.6005, L503.7505, L501.6710, L101.9900, L300.3900 ####[facility] [address] [place], [address] WBC (Bld) [#/Vol] 9.9 10*3/uL Normal 4.4-11.0 [facility] Comment on above: Performed By: #### L 100.0100, L503.6005, L503.7505, L501.6710, L101.9900, L300.3900 ####[facility] [address] [place], [address] CNPNon 12-19-2024 CNPN Normal [facility] CRPon 12-19-2024 C-REACTIVE PROT 24.90 mg/L High 0.0-3.0 [facility] Comment on above: Performed By: #### L 100.0100, L503.6005, L503.7505, L501.6710, L101.9900, L300.3900 ####[facility] [address] [place], [address] Chest PA and Lateralon 12-19 Chest PA and Lateral Normal [facility] Comprehensive Metabolic Prof ilon 12-19-2024 Albumin [Mass/Vol] 3.4 g/dL Normal 3.4-4.8 [facility] Comment on above: Performed By: #### L 500.4050 ####[facility] [address] [place], [address] Albumin/Globulin [Mass ratio] 0.8 {ratio} Low 0.9-2.4 [facility] Comment on above: Performed By: #### L 500.4050 ####[facility] [address] [place], [address] ALK PHOS 267 U/L High 40-129 [facility] Comment on above: Performed By: #### L 500.4050 ####[facility] [address] [place], [address] ALT [Catalytic activity/Vol] 47 U/L Normal <=46 [facility] Comment on above: Performed By: #### L 500.4050 ####[facility] [address] [place], [address] AST [Catalytic activity/Vol] 56 U/L High <=37 [facility] Comment on above: Performed By: #### L 500.4050 ####[facility] [address] [place], [address] Bilirubin [Mass/Vol] 0.88 mg/dL Normal 0.00-1.30 [facility] Comment on above: Performed By: #### L 500.4050 ####[facility] [address] [place], [address] BUN/CRE 18.5 RATIO Normal 10-20 [facility] Comment on above: Performed By: #### L 500.4050 ####[facility] [address] [place], [address] Calcium [Mass/Vol] 9.1 mg/dL Normal 7.6-11.0 [facility] Comment on above: Performed By: #### L 500.4050 ####[facility] [address] [place], [address] Chloride [Moles/Vol] 99 mmol/L Normal 98-108 [facility] Comment on above: Performed By: #### L 500.4050 ####[facility] [address] [place], [address] CO2 [Moles/Vol] 29.4 mmol/L Normal 21.0-32.0 [facility] Comment on above: Performed By: #### L 500.4050 ####[facility] [address] [place], [address] Creatinine [Mass/Vol] 1.43 mg/dL High 0.70-1.20 [facility] Comment on above: Performed By: #### L 500.4050 ####[facility] [address] [place], [address] ECRCL 55.58 ml/min Normal 50-250 [facility] Comment on above: Performed By: #### L 500.4050 ####[facility] [address] [place], [address] GAP 11 Normal 5-15 [facility] Comment on above: Performed By: #### L 500.4050 ####[facility] [address] [place], [address] GFR/1.73 sq M.predicted among non-blacks MDRD (S/P/Bld) [Vol rate/Area] 55 mL/min/{1.73_m2} Low >60 [facility] Comment on above: Result Comment: mL/m in/1.73m2 CKD-EPI Creatinine Equation (2020) Performed By: #### L 500.4050 ####[facility] [address] [place], [address] Globulin (S) [Mass/Vol] 4.0 g/dL Normal 2.2-4.2 [facility] Comment on above: Performed By: #### L 500.4050 ####[facility] [address] [place], [address] Glucose [Mass/Vol] 158 mg/dL High 70-99 [facility] Comment on above: Performed By: #### L 500.4050 ####[facility] [address] [place], [address] Potassium [Moles/Vol] 4.3 mmol/L Normal 3.3-5.1 [facility] Comment on above: Performed By: #### L 500.4050 ####[facility] [address] [place], [address] Sodium [Moles/Vol] 139 mmol/L Normal 133-145 [facility] Comment on above: Performed By: #### L 500.4050 ####[facility] [address] [place], [address] T PROT 7.4 g/dL Normal 5.9-8.4 [facility] Comment on above: Performed By: #### L 500.4050 ####[facility] [address] [place], [address] Urea nitrogen [Mass/Vol] 27 mg/dL High 4-19 [facility] Comment on above: Performed By: #### L 500.9551 ####[facility] [address] [place], [address] Emergency Department Summary on 12-19-2024 Emergency Department Summary Normal [facility] Erythrocyte Sed Rateon 12-19 SED RATE 39 mm/hr High 0-20 [facility] Comment on above: Performed By: #### L 100.0100, L503.6005, L503.7505, L501.6710, L101.9900, L300.3900 ####[facility] [address] [place], [address] Foot min 3 Viewson 5 Foot min 3 Views Normal [facility] H AND P Exam - Hospitaliston 12-19-2024 H&P Exam - Hospitalist Normal [facility] Lactic Acidon 12-19-2024 Lactate [Moles/Vol] 2.3 mmol/L Invalid Interpretation Code 0.0-2.0 [facility] Comment on above: Result Comment: Crit ical Result(s) Called at: 1613 by: KAVEH JOHNSON Results read back by same. Performed By: #### L 503.4027 ####[facility] [address] [place], [address] Lactate [Moles/Vol] 3.7 mmol/L Invalid Interpretation Code 0.0-2.0 [facility] Comment on above: Order Comment: Y Result Comment: Crit ical Result(s) Called at: by:?MARK ANTHONY VALLES Resultsread back by same. Performed By: #### L 100.0100, L503.6005, L503.7505, L501.6710, L101.9900, L300.3900 ####[facility] [address] [place], [address] Legionella Antigen Urineon 0 12-19-2024 LEGU Normal [facility] Comment on above: Performed By: #### M 300.4500, M300.4600 ####[facility] [address] [place], [address] M100.678on 12-19-2024 M100.678 Pending SARS-CoV-2 (COVID 19) Negative INFLUENZA A Negative INFLUENZA B Negative RSV PCR Negative Normal [facility] Comment on above: Performed By: #### M 100.678 ####[facility] [address] [place], [address] Partial Thromboplast Timeon 12-19-2024 aPTT Coag (Bld) [Time] 27.8 s Normal 24.1-36.2 [facility] Comment on above: Order Comment: NATALIE W. PREVIOUS SPECIMEN REJECTED DUE TOHEMOLYSIS. 12/19/24 1118 Performed By: #### L 300.4310, L300.3900 ####[facility] [address] [place], [address] Pro- Brain NATRIURETIC PEPTI Sylvia 12-19-2024 Natriuretic peptide B (Bld) [Mass/Vol] 71549 pg/mL High <=900 [facility] Comment on above: Result Comment: Hear t Failure Unlikely: < 300 pg/mLHeart Failure Likely< 50 Years: > 450 pg/mL50-75 Years: > 900 pg/mL>75 Years: > 1800 pg/mL Performed By: #### L 100.0100, L503.6005, L503.7505, L501.6710, L101.9900, L300.3900 ####[facility] [address] [place], [address] Prothrombin Time w/INRon INR Coag (PPP) [Relative time] 1.2 {INR} Normal [facility] Comment on above: Order Comment: RED W. PREVIOUS SPECIMEN REJECTED DUE TOHEMOLYSIS. 12/19/24 1118 Performed By: #### L 300.4310, L300.3900 ####[facility] [address] [place], [address] PT Coag (PPP) [Time] 15.6 s High 11.7-14.9 [facility] Comment on above: Order Comment: ELIZ W. PREVIOUS SPECIMEN REJECTED DUE TOHEMOLYSIS. 12/19/24 1118 Performed By: #### L 300.4310, L300.3900 ####[facility] [address] [place], [address] INR Normal [facility] Comment on above: Result Comment: This specimen has been REJECTED due to Laboratory criteria:Hemolyzed.ELSY has been notified of need of recollection.12/19/24 111 Marcy Clapper Performed By: #### L 100.0100, L503.6005, L503.7505, L501.6710, L101.9900, L300.3900 ####[facility] [address] [place], [address] PROTIME Normal 11.7-14.9 [facility] Comment on above: Result Comment: This specimen has been REJECTED due to Laboratory criteria:Hemolyzed.ELSY has been notified of need of recollection.12/19/241116 Marcy Clapper Performed By: #### L 100.0100, L503.6005, L503.7505, L501.6710, L101.9900, L300.3900 ####[facility] [address] [place], [address] RESPIRATORY PANEL MOLECULARo n 12-19-2024 RP PANEL Normal [facility] Comment on above: Performed By: #### M 100.638 ####[facility] [address] [place], [address] Strep pneumoniae Antig(UR,CS F)on 12-19-2024 STPAG Normal [facility] Comment on above: Performed By: #### M 300.4500, M300.4600 ####[facility] [address] [place], [address] Basic Metabolic Profile (BMP )on 12-13-2024 BUN Normal 4-19 [facility] Comment on above: Result Comment: Canc elled via OM: Order cancelled - Patient discharged Performed By: #### L 100.0100, L500.2500 ####[facility] [address] [place], [address] BUN/CRE Normal 10-20 [facility] Comment on above: Result Comment: Canc elled via OM: Order cancelled - Patient discharged Performed By: #### L 100.0100, L500.2500 ####[facility] [address] [place], [address] Calcium Normal 7.6-11.0 [facility] Comment on above: Result Comment: Canc elled via OM: Order cancelled - Patient discharged Performed By: #### L 100.0100, L500.2500 ####[facility] [address] [place], [address] CL Normal 98-108 [facility] Comment on above: Result Comment: Canc elled via OM: Order cancelled - Patient discharged Performed By: #### L 100.0100, L500.2500 ####[facility] [address] [place], [address] CO2 Normal 21.0-32.0 [facility] Comment on above: Result Comment: Canc elled via OM: Order cancelled - Patient discharged Performed By: #### L 100.0100, L500.2500 ####[facility] [address] [place], [address] CREAT,SERUM Normal 0.70-1.20 [facility] Comment on above: Result Comment: Canc elled via OM: Order cancelled - Patient discharged Performed By: #### L 100.0100, L500.2500 ####[facility] [address] [place], [address] eGFR Normal >60 [facility] Comment on above: Result Comment: Canc elled via OM: Order cancelled - Patient discharged Performed By: #### L 100.0100, L500.2500 ####[facility] [address] [place], [address] GAP Normal 5-15 [facility] Comment on above: Result Comment: Canc elled via OM: Order cancelled - Patient discharged Performed By: #### L 100.0100, L500.2500 ####[facility] [address] [place], [address] GLU Normal 70-99 [facility] Comment on above: Result Comment: Canc elled via OM: Order cancelled - Patient discharged Performed By: #### L 100.0100, L500.2500 ####[facility] [address] [place], [address] Potassium Normal 3.3-5.1 [facility] Comment on above: Result Comment: Canc elled via OM: Order cancelled - Patient discharged Performed By: #### L 100.0100, L500.2500 ####[facility] [address] [place], [address] Basic Metabolic Profile (BMP) Normal 133-145 [facility] Comment on above: Result Comment: Canc elled via OM: Order cancelled - Patient discharged Performed By: #### L 100.0100, L500.2500 ####[facility] [address] [place], [address] CBC W/Diff, Automatedon 09-0 -2024 Absolute Neut Normal 2.0-7.7 [facility] Comment on above: Result Comment: Canc elled via OM: Order cancelled - Patient discharged Performed By: #### L 100.0100, L500.2500 ####[facility] [address] [place], [address] HCT Normal 40-54 [facility] Comment on above: Result Comment: Canc elled via OM: Order cancelled - Patient discharged Performed By: #### L 100.0100, L500.2500 ####[facility] [address] [place], [address] HGB Normal 13.0-16.5 [facility] Comment on above: Result Comment: Canc elled via OM: Order cancelled - Patient discharged Performed By: #### L 100.0100, L500.2500 ####[facility] [address] [place], [address] MCH Normal 27.0-32.0 [facility] Comment on above: Result Comment: Canc elled via OM: Order cancelled - Patient discharged Performed By: #### L 100.0100, L500.2500 ####[facility] [address] [place], [address] MCHC Normal 32-36 [facility] Comment on above: Result Comment: Canc elled via OM: Order cancelled - Patient discharged Performed By: #### L 100.0100, L500.2500 ####[facility] [address] [place], [address] MCV Normal 80-94 [facility] Comment on above: Result Comment: Canc elled via OM: Order cancelled - Patient discharged Performed By: #### L 100.0100, L500.2500 ####[facility] [address] [place], [address] NEUT% Normal 47-70 [facility] Comment on above: Result Comment: Canc elled via OM: Order cancelled - Patient discharged Performed By: #### L 100.0100, L500.2500 ####[facility] [address] [place], [address] PLT Normal 150-450 [facility] Comment on above: Result Comment: Canc elled via OM: Order cancelled - Patient discharged Performed By: #### L 100.0100, L500.2500 ####[facility] [address] [place], [address] RBC Normal 4.6-6.2 [facility] Comment on above: Result Comment: Canc elled via OM: Order cancelled - Patient discharged Performed By: #### L 100.0100, L500.2500 ####[facility] [address] [place], [address] RDW CV Normal 11.6-14.6 [facility] Comment on above: Result Comment: Canc elled via OM: Order cancelled - Patient discharged Performed By: #### L 100.0100, L500.2500 ####[facility] [address] [place], [address] RDW SD Normal 35.1-43.9 [facility] Comment on above: Result Comment: Canc elled via OM: Order cancelled - Patient discharged Performed By: #### L 100.0100, L500.2500 ####[facility] [address] [place], [address] WBC Normal 4.4-11.0 [facility] Comment on above: Result Comment: Canc elled via OM: Order cancelled - Patient discharged Performed By: #### L 100.0100, L500.2500 ####[facility] [address] [place], [address] Basic Metabolic Profile (BMP )on 12-12-2024 BUN Normal 4-19 [facility] Comment on above: Result Comment: Canc elled via OM: Order cancelled - Patient discharged Performed By: #### L 500.2500, L100.0100 ####[facility] [address] [place], [address] BUN/CRE Normal 10-20 [facility] Comment on above: Result Comment: Canc elled via OM: Order cancelled - Patient discharged Performed By: #### L 500.2500, L100.0100 ####[facility] [address] [place], [address] Calcium Normal 7.6-11.0 [facility] Comment on above: Result Comment: Canc elled via OM: Order cancelled - Patient discharged Performed By: #### L 500.2500, L100.0100 ####[facility] [address] [place], [address] CL Normal 98-108 [facility] Comment on above: Result Comment: Canc elled via OM: Order cancelled - Patient discharged Performed By: #### L 500.2500, L100.0100 ####[facility] [address] [place], [address] CO2 Normal 21.0-32.0 [facility] Comment on above: Result Comment: Canc elled via OM: Order cancelled - Patient discharged Performed By: #### L 500.2500, L100.0100 ####[facility] [address] [place], [address] CREAT,SERUM Normal 0.70-1.20 [facility] Comment on above: Result Comment: Canc elled via OM: Order cancelled - Patient discharged Performed By: #### L 500.2500, L100.0100 ####[facility] [address] [place], [address] eGFR Normal >60 [facility] Comment on above: Result Comment: Canc elled via OM: Order cancelled - Patient discharged Performed By: #### L 500.2500, L100.0100 ####[facility] [address] [place], [address] GAP Normal 5-15 [facility] Comment on above: Result Comment: Canc elled via OM: Order cancelled - Patient discharged Performed By: #### L 500.2500, L100.0100 ####[facility] [address] [place], [address] GLU Normal 70-99 [facility] Comment on above: Result Comment: Canc elled via OM: Order cancelled - Patient discharged Performed By: #### L 500.2500, L100.0100 ####[facility] [address] [place], [address] Potassium Normal 3.3-5.1 [facility] Comment on above: Result Comment: Canc elled via OM: Order cancelled - Patient discharged Performed By: #### L 500.2500, L100.0100 ####[facility] [address] [place], [address] Basic Metabolic Profile (BMP) Normal 133-145 [facility] Comment on above: Result Comment: Canc elled via OM: Order cancelled - Patient discharged Performed By: #### L 500.2500, L100.0100 ####[facility] [address] [place], [address] CBC W/Diff, Automatedon 09-0 -2024 Absolute Neut Normal 2.0-7.7 [facility] Comment on above: Result Comment: Canc elled via OM: Order cancelled - Patient discharged Performed By: #### L 500.2500, L100.0100 ####[facility] [address] [place], [address] HCT Normal 40-54 [facility] Comment on above: Result Comment: Canc elled via OM: Order cancelled - Patient discharged Performed By: #### L 500.2500, L100.0100 ####[facility] [address] [place], [address] HGB Normal 13.0-16.5 [facility] Comment on above: Result Comment: Canc elled via OM: Order cancelled - Patient discharged Performed By: #### L 500.2500, L100.0100 ####[facility] [address] [place], [address] MCH Normal 27.0-32.0 [facility] Comment on above: Result Comment: Canc elled via OM: Order cancelled - Patient discharged Performed By: #### L 500.2500, L100.0100 ####[facility] [address] [place], [address] MCHC Normal 32-36 [facility] Comment on above: Result Comment: Canc elled via OM: Order cancelled - Patient discharged Performed By: #### L 500.2500, L100.0100 ####[facility] [address] [place], [address] MCV Normal 80-94 [facility] Comment on above: Result Comment: Canc elled via OM: Order cancelled - Patient discharged Performed By: #### L 500.2500, L100.0100 ####[facility] [address] [place], [address] NEUT% Normal 47-70 [facility] Comment on above: Result Comment: Canc elled via OM: Order cancelled - Patient discharged Performed By: #### L 500.2500, L100.0100 ####[facility] [address] [place], [address] PLT Normal 150-450 [facility] Comment on above: Result Comment: Canc elled via OM: Order cancelled - Patient discharged Performed By: #### L 500.2500, L100.0100 ####[facility] [address] [place], [address] RBC Normal 4.6-6.2 [facility] Comment on above: Result Comment: Canc elled via OM: Order cancelled - Patient discharged Performed By: #### L 500.2500, L100.0100 ####[facility] [address] [place], [address] RDW CV Normal 11.6-14.6 [facility] Comment on above: Result Comment: Canc elled via OM: Order cancelled - Patient discharged Performed By: #### L 500.2500, L100.0100 ####[facility] [address] [place], [address] RDW SD Normal 35.1-43.9 [facility] Comment on above: Result Comment: Canc elled via OM: Order cancelled - Patient discharged Performed By: #### L 500.2500, L100.0100 ####[facility] [address] [place], [address] WBC Normal 4.4-11.0 [facility] Comment on above: Result Comment: Canc elled via OM: Order cancelled - Patient discharged Performed By: #### L 500.2500, L100.0100 ####[facility] [address] [place], [address] Basic Metabolic Profile (BMP )on 12-11-2024 BUN Normal 4-19 [facility] Comment on above: Result Comment: Canc elled via OM: Order cancelled - Patient discharged Performed By: #### L 500.2500, L100.0100 ####[facility] [address] [place], [address] BUN/CRE Normal 10-20 [facility] Comment on above: Result Comment: Canc elled via OM: Order cancelled - Patient discharged Performed By: #### L 500.2500, L100.0100 ####[facility] [address] [place], [address] Calcium Normal 7.6-11.0 [facility] Comment on above: Result Comment: Canc elled via OM: Order cancelled - Patient discharged Performed By: #### L 500.2500, L100.0100 ####[facility] [address] [place], [address] CL Normal 98-108 [facility] Comment on above: Result Comment: Canc elled via OM: Order cancelled - Patient discharged Performed By: #### L 500.2500, L100.0100 ####[facility] [address] [place], [address] CO2 Normal 21.0-32.0 [facility] Comment on above: Result Comment: Canc elled via OM: Order cancelled - Patient discharged Performed By: #### L 500.2500, L100.0100 ####[facility] [address] [place], [address] CREAT,SERUM Normal 0.70-1.20 [facility] Comment on above: Result Comment: Canc elled via OM: Order cancelled - Patient discharged Performed By: #### L 500.2500, L100.0100 ####[facility] [address] [place], [address] eGFR Normal >60 [facility] Comment on above: Result Comment: Canc elled via OM: Order cancelled - Patient discharged Performed By: #### L 500.2500, L100.0100 ####[facility] [address] [place], [address] GAP Normal 5-15 [facility] Comment on above: Result Comment: Canc elled via OM: Order cancelled - Patient discharged Performed By: #### L 500.2500, L100.0100 ####[facility] [address] [place], [address] GLU Normal 70-99 [facility] Comment on above: Result Comment: Canc elled via OM: Order cancelled - Patient discharged Performed By: #### L 500.2500, L100.0100 ####[facility] [address] [place], [address] Potassium Normal 3.3-5.1 [facility] Comment on above: Result Comment: Canc elled via OM: Order cancelled - Patient discharged Performed By: #### L 500.2500, L100.0100 ####[facility] [address] [place], [address] Basic Metabolic Profile (BMP) Normal 133-145 [facility] Comment on above: Result Comment: Canc elled via OM: Order cancelled - Patient discharged Performed By: #### L 500.2500, L100.0100 ####[facility] [address] [place], [address] CBC W/Diff, Automatedon 09-0 -2024 Absolute Neut Normal 2.0-7.7 [facility] Comment on above: Result Comment: Canc elled via OM: Order cancelled - Patient discharged Performed By: #### L 500.2500, L100.0100 ####[facility] [address] [place], [address] HCT Normal 40-54 [facility] Comment on above: Result Comment: Canc elled via OM: Order cancelled - Patient discharged Performed By: #### L 500.2500, L100.0100 ####[facility] [address] [place], [address] HGB Normal 13.0-16.5 [facility] Comment on above: Result Comment: Canc elled via OM: Order cancelled - Patient discharged Performed By: #### L 500.2500, L100.0100 ####[facility] [address] [place], [address] MCH Normal 27.0-32.0 [facility] Comment on above: Result Comment: Canc elled via OM: Order cancelled - Patient discharged Performed By: #### L 500.2500, L100.0100 ####[facility] [address] [place], [address] MCHC Normal 32-36 [facility] Comment on above: Result Comment: Canc elled via OM: Order cancelled - Patient discharged Performed By: #### L 500.2500, L100.0100 ####[facility] [address] [place], [address] MCV Normal 80-94 [facility] Comment on above: Result Comment: Canc elled via OM: Order cancelled - Patient discharged Performed By: #### L 500.2500, L100.0100 ####[facility] [address] [place], [address] NEUT% Normal 47-70 [facility] Comment on above: Result Comment: Canc elled via OM: Order cancelled - Patient discharged Performed By: #### L 500.2500, L100.0100 ####[facility] [address] [place], [address] PLT Normal 150-450 [facility] Comment on above: Result Comment: Canc elled via OM: Order cancelled - Patient discharged Performed By: #### L 500.2500, L100.0100 ####[facility] [address] [place], [address] RBC Normal 4.6-6.2 [facility] Comment on above: Result Comment: Canc elled via OM: Order cancelled - Patient discharged Performed By: #### L 500.2500, L100.0100 ####[facility] [address] [place], [address] RDW CV Normal 11.6-14.6 [facility] Comment on above: Result Comment: Canc elled via OM: Order cancelled - Patient discharged Performed By: #### L 500.2500, L100.0100 ####[facility] [address] [place], [address] RDW SD Normal 35.1-43.9 [facility] Comment on above: Result Comment: Canc elled via OM: Order cancelled - Patient discharged Performed By: #### L 500.2500, L100.0100 ####[facility] [address] [place], [address] WBC Normal 4.4-11.0 [facility] Comment on above: Result Comment: Canc elled via OM: Order cancelled - Patient discharged Performed By: #### L 500.2500, L100.0100 ####[facility] [address] [place], [address] Basic Metabolic Profile (BMP )on 12-10-2024 BUN Normal 4-19 [facility] Comment on above: Result Comment: Canc elled via OM: Order cancelled - Patient discharged Performed By: #### L 100.0100, L500.2500 ####[facility] [address] [place], [address] BUN/CRE Normal 10-20 [facility] Comment on above: Result Comment: Canc elled via OM: Order cancelled - Patient discharged Performed By: #### L 100.0100, L500.2500 ####[facility] [address] [place], [address] Calcium Normal 7.6-11.0 [facility] Comment on above: Result Comment: Canc elled via OM: Order cancelled - Patient discharged Performed By: #### L 100.0100, L500.2500 ####[facility] [address] [place], [address] CL Normal 98-108 [facility] Comment on above: Result Comment: Canc elled via OM: Order cancelled - Patient discharged Performed By: #### L 100.0100, L500.2500 ####[facility] [address] [place], [address] CO2 Normal 21.0-32.0 [facility] Comment on above: Result Comment: Canc elled via OM: Order cancelled - Patient discharged Performed By: #### L 100.0100, L500.2500 ####[facility] [address] [place], [address] CREAT,SERUM Normal 0.70-1.20 [facility] Comment on above: Result Comment: Canc elled via OM: Order cancelled - Patient discharged Performed By: #### L 100.0100, L500.2500 ####[facility] [address] [place], [address] eGFR Normal >60 [facility] Comment on above: Result Comment: Canc elled via OM: Order cancelled - Patient discharged Performed By: #### L 100.0100, L500.2500 ####[facility] [address] [place], [address] GAP Normal 5-15 [facility] Comment on above: Result Comment: Canc elled via OM: Order cancelled - Patient discharged Performed By: #### L 100.0100, L500.2500 ####[facility] [address] [place], [address] GLU Normal 70-99 [facility] Comment on above: Result Comment: Canc elled via OM: Order cancelled - Patient discharged Performed By: #### L 100.0100, L500.2500 ####[facility] [address] [place], [address] Potassium Normal 3.3-5.1 [facility] Comment on above: Result Comment: Canc elled via OM: Order cancelled - Patient discharged Performed By: #### L 100.0100, L500.2500 ####[facility] [address] [place], [address] Basic Metabolic Profile (BMP) Normal 133-145 [facility] Comment on above: Result Comment: Canc elled via OM: Order cancelled - Patient discharged Performed By: #### L 100.0100, L500.2500 ####[facility] [address] [place], [address] CBC W/Diff, Automatedon 09-0 -2024 Absolute Neut Normal 2.0-7.7 [facility] Comment on above: Result Comment: Canc elled via OM: Order cancelled - Patient discharged Performed By: #### L 100.0100, L500.2500 ####[facility] [address] [place], [address] HCT Normal 40-54 [facility] Comment on above: Result Comment: Canc elled via OM: Order cancelled - Patient discharged Performed By: #### L 100.0100, L500.2500 ####[facility] [address] [place], [address] HGB Normal 13.0-16.5 [facility] Comment on above: Result Comment: Canc elled via OM: Order cancelled - Patient discharged Performed By: #### L 100.0100, L500.2500 ####[facility] [address] [place], [address] MCH Normal 27.0-32.0 [facility] Comment on above: Result Comment: Canc elled via OM: Order cancelled - Patient discharged Performed By: #### L 100.0100, L500.2500 ####[facility] [address] [place], [address] MCHC Normal 32-36 [facility] Comment on above: Result Comment: Canc elled via OM: Order cancelled - Patient discharged Performed By: #### L 100.0100, L500.2500 ####[facility] [address] [place], [address] MCV Normal 80-94 [facility] Comment on above: Result Comment: Canc elled via OM: Order cancelled - Patient discharged Performed By: #### L 100.0100, L500.2500 ####[facility] [address] [place], [address] NEUT% Normal 47-70 [facility] Comment on above: Result Comment: Canc elled via OM: Order cancelled - Patient discharged Performed By: #### L 100.0100, L500.2500 ####[facility] [address] [place], [address] PLT Normal 150-450 [facility] Comment on above: Result Comment: Canc elled via OM: Order cancelled - Patient discharged Performed By: #### L 100.0100, L500.2500 ####[facility] [address] [place], [address] RBC Normal 4.6-6.2 [facility] Comment on above: Result Comment: Canc elled via OM: Order cancelled - Patient discharged Performed By: #### L 100.0100, L500.2500 ####[facility] [address] [place], [address] RDW CV Normal 11.6-14.6 [facility] Comment on above: Result Comment: Canc elled via OM: Order cancelled - Patient discharged Performed By: #### L 100.0100, L500.2500 ####[facility] [address] [place], [address] RDW SD Normal 35.1-43.9 [facility] Comment on above: Result Comment: Canc elled via OM: Order cancelled - Patient discharged Performed By: #### L 100.0100, L500.2500 ####[facility] [address] [place], [address] WBC Normal 4.4-11.0 [facility] Comment on above: Result Comment: Canc elled via OM: Order cancelled - Patient discharged Performed By: #### L 100.0100, L500.2500 ####[facility] [address] [place], [address] Basic Metabolic Profile (BMP )on 12-09-2024 BUN Normal 4-19 [facility] Comment on above: Result Comment: Canc elled via OM: Order cancelled - Patient discharged Performed By: #### L 500.2500, L100.0100 ####[facility] [address] [place], [address] BUN/CRE Normal 10-20 [facility] Comment on above: Result Comment: Canc elled via OM: Order cancelled - Patient discharged Performed By: #### L 500.2500, L100.0100 ####[facility] [address] [place], [address] Calcium Normal 7.6-11.0 [facility] Comment on above: Result Comment: Canc elled via OM: Order cancelled - Patient discharged Performed By: #### L 500.2500, L100.0100 ####[facility] [address] [place], [address] CL Normal 98-108 [facility] Comment on above: Result Comment: Canc elled via OM: Order cancelled - Patient discharged Performed By: #### L 500.2500, L100.0100 ####[facility] [address] [place], [address] CO2 Normal 21.0-32.0 [facility] Comment on above: Result Comment: Canc elled via OM: Order cancelled - Patient discharged Performed By: #### L 500.2500, L100.0100 ####[facility] [address] [place], [address] CREAT,SERUM Normal 0.70-1.20 [facility] Comment on above: Result Comment: Canc elled via OM: Order cancelled - Patient discharged Performed By: #### L 500.2500, L100.0100 ####[facility] [address] [place], [address] eGFR Normal >60 [facility] Comment on above: Result Comment: Canc elled via OM: Order cancelled - Patient discharged Performed By: #### L 500.2500, L100.0100 ####[facility] [address] [place], [address] GAP Normal 5-15 [facility] Comment on above: Result Comment: Canc elled via OM: Order cancelled - Patient discharged Performed By: #### L 500.2500, L100.0100 ####[facility] [address] [place], [address] GLU Normal 70-99 [facility] Comment on above: Result Comment: Canc elled via OM: Order cancelled - Patient discharged Performed By: #### L 500.2500, L100.0100 ####[facility] [address] [place], [address] Potassium Normal 3.3-5.1 [facility] Comment on above: Result Comment: Canc elled via OM: Order cancelled - Patient discharged Performed By: #### L 500.2500, L100.0100 ####[facility] [address] [place], [address] Basic Metabolic Profile (BMP) Normal 133-145 [facility] Comment on above: Result Comment: Canc elled via OM: Order cancelled - Patient discharged Performed By: #### L 500.2500, L100.0100 ####[facility] [address] [place], [address] CBC W/Diff, Automatedon 09-0 5-2024 Absolute Neut Normal 2.0-7.7 [facility] Comment on above: Result Comment: Canc elled via OM: Order cancelled - Patient discharged Performed By: #### L 500.2500, L100.0100 ####[facility] [address] [place], [address] HCT Normal 40-54 [facility] Comment on above: Result Comment: Canc elled via OM: Order cancelled - Patient discharged Performed By: #### L 500.2500, L100.0100 ####[facility] [address] [place], [address] HGB Normal 13.0-16.5 [facility] Comment on above: Result Comment: Canc elled via OM: Order cancelled - Patient discharged Performed By: #### L 500.2500, L100.0100 ####[facility] [address] [place], [address] MCH Normal 27.0-32.0 [facility] Comment on above: Result Comment: Canc elled via OM: Order cancelled - Patient discharged Performed By: #### L 500.2500, L100.0100 ####[facility] [address] [place], [address] MCHC Normal 32-36 [facility] Comment on above: Result Comment: Canc elled via OM: Order cancelled - Patient discharged Performed By: #### L 500.2500, L100.0100 ####[facility] [address] [place], [address] MCV Normal 80-94 [facility] Comment on above: Result Comment: Canc elled via OM: Order cancelled - Patient discharged Performed By: #### L 500.2500, L100.0100 ####[facility] [address] [place], [address] NEUT% Normal 47-70 [facility] Comment on above: Result Comment: Canc elled via OM: Order cancelled - Patient discharged Performed By: #### L 500.2500, L100.0100 ####[facility] [address] [place], [address] PLT Normal 150-450 [facility] Comment on above: Result Comment: Canc elled via OM: Order cancelled - Patient discharged Performed By: #### L 500.2500, L100.0100 ####[facility] [address] [place], [address] RBC Normal 4.6-6.2 [facility] Comment on above: Result Comment: Canc elled via OM: Order cancelled - Patient discharged Performed By: #### L 500.2500, L100.0100 ####[facility] [address] [place], [address] RDW CV Normal 11.6-14.6 [facility] Comment on above: Result Comment: Canc elled via OM: Order cancelled - Patient discharged Performed By: #### L 500.2500, L100.0100 ####[facility] [address] [place], [address] RDW SD Normal 35.1-43.9 [facility] Comment on above: Result Comment: Canc elled via OM: Order cancelled - Patient discharged Performed By: #### L 500.2500, L100.0100 ####[facility] [address] [place], [address] WBC Normal 4.4-11.0 [facility] Comment on above: Result Comment: Canc elled via OM: Order cancelled - Patient discharged Performed By: #### L 500.2500, L100.0100 ####[facility] [address] [place], [address] Basic Metabolic Profile (BMP )on 12-08-2024 BUN/CRE 29.6 RATIO High 10-20 [facility] Comment on above: Performed By: #### L 500.2500, L100.0100 ####[facility] [address] [place], [address] Calcium [Mass/Vol] 9.1 mg/dL Normal 7.6-11.0 [facility] Comment on above: Performed By: #### L 500.2500, L100.0100 ####[facility] [address] [place], [address] Chloride [Moles/Vol] 98 mmol/L Normal 98-108 [facility] Comment on above: Performed By: #### L 500.2500, L100.0100 ####[facility] [address] [place], [address] CO2 [Moles/Vol] 21.9 mmol/L Normal 21.0-32.0 [facility] Comment on above: Performed By: #### L 500.2500, L100.0100 ####[facility] [address] [place], [address] Creatinine [Mass/Vol] 1.29 mg/dL High 0.70-1.20 [facility] Comment on above: Performed By: #### L 500.2500, L100.0100 ####[facility] [address] [place], [address] ECRCL 61.61 ml/min Normal 50-250 [facility] Comment on above: Performed By: #### L 500.2500, L100.0100 ####[facility] [address] [place], [address] GAP 16 High 5-15 [facility] Comment on above: Performed By: #### L 500.2500, L100.0100 ####[facility] [address] [place], [address] GFR/1.73 sq M.predicted among non-blacks MDRD (S/P/Bld) [Vol rate/Area] 62 mL/min/{1.73_m2} Normal >60 [facility] Comment on above: Result Comment: mL/m in/1.73m2 CKD-EPI Creatinine Equation (2020) Performed By: #### L 500.2500, L100.0100 ####[facility] [address] [place], [address] Glucose [Mass/Vol] 115 mg/dL High 70-99 [facility] Comment on above: Performed By: #### L 500.2500, L100.0100 ####[facility] [address] [place], [address] Potassium [Moles/Vol] 4.4 mmol/L Normal 3.3-5.1 [facility] Comment on above: Performed By: #### L 500.2500, L100.0100 ####[facility] [address] [place], [address] Sodium [Moles/Vol] 135 mmol/L Normal 133-145 [facility] Comment on above: Performed By: #### L 500.2500, L100.0100 ####[facility] [address] [place], [address] Urea nitrogen [Mass/Vol] 38 mg/dL High 4-19 [facility] Comment on above: Performed By: #### L 500.2500, L100.0100 ####[facility] [address] [place], [address] Bedside Glucoseon 12-08-2024 FINGERSTICK GLU 183 mg/dL High 74-106 [facility] Comment on above: Result Comment: SNEHA GEMENT OF PATIENT CARE PER NURSING PROTOCOL Performed By: #### L 501.080 ####[facility] [address] [place], [address] FINGERSTICK GLU 116 mg/dL High 74-106 [facility] Comment on above: Result Comment: SNEHA GEMENT OF PATIENT CARE PER NURSING PROTOCOL Performed By: #### L 501.080 ####[facility] [address] [place], [address] CBC W/Diff, Automatedon 09-0 Absolute Lymph 1.36 X10 3/uL Normal 0.83-4.51 [facility] Comment on above: Performed By: #### L 500.2500, L100.0100 ####[facility] [address] [place], [address] Absolute Neut 9.5 X10 3/uL High 2.0-7.7 [facility] Comment on above: Performed By: #### L 500.2500, L100.0100 ####[facility] [address] [place], [address] Basophils/100 WBC (Bld) 0.5 % Normal 0-1 [facility] Comment on above: Performed By: #### L 500.2500, L100.0100 ####[facility] [address] [place], [address] Eosinophils/100 WBC (Bld) 0.3 % Normal 0-5 [facility] Comment on above: Performed By: #### L 500.2500, L100.0100 ####[facility] [address] [place], [address] Erythrocyte distribution width (RBC) [Ratio] 15.7 % High 11.6-14.6 [facility] Comment on above: Performed By: #### L 500.2500, L100.0100 ####[facility] [address] [place], [address] Hematocrit (Bld) [Volume fraction] 42.4 % Normal 40-54 [facility] Comment on above: Performed By: #### L 500.2500, L100.0100 ####[facility] [address] [place], [address] Hemoglobin (Bld) [Mass/Vol] 13.8 g/dL Normal 13.0-16.5 [facility] Comment on above: Performed By: #### L 500.2500, L100.0100 ####[facility] [address] [place], [address] IG% 0.300 Normal 0.0-0.9 [facility] Comment on above: Result Comment: IG% - Immature Granulocytes (promyelocytes, myelocytes andmetamyelocytes) > 1% indicates that a LEFT SHIFT is Present. Performed By: #### L 500.2500, L100.0100 ####[facility] [address] [place], [address] Lymphocytes/100 WBC (Bld) 11.4 % Low 19-41 [facility] Comment on above: Performed By: #### L 500.2500, L100.0100 ####[facility] [address] [place], [address] MCH (RBC) [Entitic mass] 29.0 pg Normal 27.0-32.0 [facility] Comment on above: Performed By: #### L 500.2500, L100.0100 ####[facility] [address] [place], [address] MCHC (RBC) [Mass/Vol] 32.5 g/dL Normal 32-36 [facility] Comment on above: Performed By: #### L 500.2500, L100.0100 ####[facility] [address] [place], [address] MCV (RBC) [Entitic vol] 89.1 fL Normal 80-94 [facility] Comment on above: Performed By: #### L 500.2500, L100.0100 ####[facility] [address] [place], [address] Monocytes/100 WBC (Bld) 7.8 % Normal 0-10 [facility] Comment on above: Performed By: #### L 500.2500, L100.0100 ####[facility] [address] [place], [address] Neutrophils/100 WBC (Bld) 79.7 % High 47-70 [facility] Comment on above: Performed By: #### L 500.2500, L100.0100 ####[facility] [address] [place], [address] Nucleated RBC (Bld) [#/Vol] 0 10*3/uL Normal 0-5 [facility] Comment on above: Performed By: #### L 500.2500, L100.0100 ####[facility] [address] [place], [address] Platelet mean volume (Bld) [Entitic vol] 9.0 fL Normal 6.2-12.0 [facility] Comment on above: Performed By: #### L 500.2500, L100.0100 ####[facility] [address] [place], [address] Platelets (Bld) [#/Vol] 455 10*3/uL High 150-450 [facility] Comment on above: Performed By: #### L 500.2500, L100.0100 ####[facility] [address] [place], [address] RBC (Bld) [#/Vol] 4.76 10*6/uL Normal 4.6-6.2 [facility] Comment on above: Performed By: #### L 500.2500, L100.0100 ####[facility] [address] [place], [address] RDW SD 50.1 fl High 35.1-43.9 [facility] Comment on above: Performed By: #### L 500.2500, L100.0100 ####[facility] [address] [place], [address] WBC (Bld) [#/Vol] 11.9 10*3/uL High 4.4-11.0 [facility] Comment on above: Performed By: #### L 500.2500, L100.0100 ####[facility] [address] [place], [address] Basic Metabolic Profile (BMP )on 12-07-2024 BUN/CRE 34.8 RATIO High 10-20 [facility] Comment on above: Performed By: #### L 100.0100, L500.2500 ####[facility] [address] [place], [address] Calcium [Mass/Vol] 8.8 mg/dL Normal 7.6-11.0 [facility] Comment on above: Performed By: #### L 100.0100, L500.2500 ####[facility] [address] [place], [address] Chloride [Moles/Vol] 96 mmol/L Low 98-108 [facility] Comment on above: Performed By: #### L 100.0100, L500.2500 ####[facility] [address] [place], [address] CO2 [Moles/Vol] 25.0 mmol/L Normal 21.0-32.0 [facility] Comment on above: Performed By: #### L 100.0100, L500.2500 ####[facility] [address] [place], [address] Creatinine [Mass/Vol] 1.12 mg/dL Normal 0.70-1.20 [facility] Comment on above: Performed By: #### L 100.0100, L500.2500 ####[facility] [address] [place], [address] ECRCL 70.97 ml/min Normal 50-250 [facility] Comment on above: Performed By: #### L 100.0100, L500.2500 ####[facility] [address] [place], [address] GAP 13 Normal 5-15 [facility] Comment on above: Performed By: #### L 100.0100, L500.2500 ####[facility] [address] [place], [address] GFR/1.73 sq M.predicted among non-blacks MDRD (S/P/Bld) [Vol rate/Area] 73 mL/min/{1.73_m2} Normal >60 [facility] Comment on above: Result Comment: mL/m in/1.73m2 CKD-EPI Creatinine Equation (2020) Performed By: #### L 100.0100, L500.2500 ####[facility] [address] [place], [address] Glucose [Mass/Vol] 93 mg/dL Normal 70-99 [facility] Comment on above: Performed By: #### L 100.0100, L500.2500 ####[facility] [address] [place], [address] Potassium [Moles/Vol] 4.0 mmol/L Normal 3.3-5.1 [facility] Comment on above: Result Comment: Hemo lysis present, Results??could be affected.?? Performed By: #### L 100.0100, L500.2500 ####[facility] [address] [place], [address] Sodium [Moles/Vol] 134 mmol/L Normal 133-145 [facility] Comment on above: Performed By: #### L 100.0100, L500.2500 ####[facility] [address] [place], [address] Urea nitrogen [Mass/Vol] 39 mg/dL High 4-19 [facility] Comment on above: Performed By: #### L 100.0100, L500.2500 ####[facility] [address] [place], [address] Bedside Glucoseon 12-07-2024 FINGERSTICK GLU 151 mg/dL High 74-106 [facility] Comment on above: Result Comment: SNEHA DUNCAN OF PATIENT CARE PER NURSING PROTOCOL Performed By: #### L 501.080 ####[facility] [address] [place], [address] FINGERSTICK GLU 140 mg/dL High 74-106 [facility] Comment on above: Result Comment: SNEHA GEMENT OF PATIENT CARE PER NURSING PROTOCOL Performed By: #### L 501.080 ####[facility] [address] [place], [address] FINGERSTICK GLU 188 mg/dL High 74-106 [facility] Comment on above: Result Comment: SNEHA GEMENT OF PATIENT CARE PER NURSING PROTOCOL Performed By: #### L 501.080 ####[facility] [address] [place], [address] FINGERSTICK GLU 94 mg/dL Normal 74-106 [facility] Comment on above: Result Comment: SNEHA GEMENT OF PATIENT CARE PER NURSING PROTOCOL Performed By: #### L 501.080 ####[facility] [address] [place], [address] CBC W/Diff, Automatedon 09-0 3-2025 Absolute Lymph 1.24 X10 3/uL Normal 0.83-4.51 [facility] Comment on above: Performed By: #### L 100.0100, L500.2500 ####[facility] [address] [place], [address] Absolute Neut 7.5 X10 3/uL Normal 2.0-7.7 [facility] Comment on above: Performed By: #### L 100.0100, L500.2500 ####[facility] [address] [place], [address] Basophils/100 WBC (Bld) 0.5 % Normal 0-1 [facility] Comment on above: Performed By: #### L 100.0100, L500.2500 ####[facility] [address] [place], [address] Eosinophils/100 WBC (Bld) 1.8 % Normal 0-5 [facility] Comment on above: Performed By: #### L 100.0100, L500.2500 ####[facility] [address] [place], [address] Erythrocyte distribution width (RBC) [Ratio] 15.5 % High 11.6-14.6 [facility] Comment on above: Performed By: #### L 100.0100, L500.2500 ####[facility] [address] [place], [address] Hematocrit (Bld) [Volume fraction] 40.3 % Normal 40-54 [facility] Comment on above: Performed By: #### L 100.0100, L500.2500 ####[facility] [address] [place], [address] Hemoglobin (Bld) [Mass/Vol] 13.1 g/dL Normal 13.0-16.5 [facility] Comment on above: Performed By: #### L 100.0100, L500.2500 ####[facility] [address] [place], [address] IG% 0.400 Normal 0.0-0.9 [facility] Comment on above: Result Comment: IG% - Immature Granulocytes (promyelocytes, myelocytes andmetamyelocytes) > 1% indicates that a LEFT SHIFT is Present. Performed By: #### L 100.0100, L500.2500 ####[facility] [address] [place], [address] Lymphocytes/100 WBC (Bld) 12.9 % Low 19-41 [facility] Comment on above: Performed By: #### L 100.0100, L500.2500 ####[facility] [address] [place], [address] MCH (RBC) [Entitic mass] 29.2 pg Normal 27.0-32.0 [facility] Comment on above: Performed By: #### L 100.0100, L500.2500 ####[facility] [address] [place], [address] MCHC (RBC) [Mass/Vol] 32.5 g/dL Normal 32-36 [facility] Comment on above: Performed By: #### L 100.0100, L500.2500 ####[facility] [address] [place], [address] MCV (RBC) [Entitic vol] 89.8 fL Normal 80-94 [facility] Comment on above: Performed By: #### L 100.0100, L500.2500 ####[facility] [address] [place], [address] Monocytes/100 WBC (Bld) 6.5 % Normal 0-10 [facility] Comment on above: Performed By: #### L 100.0100, L500.2500 ####[facility] [address] [place], [address] Neutrophils/100 WBC (Bld) 77.9 % High 47-70 [facility] Comment on above: Performed By: #### L 100.0100, L500.2500 ####[facility] [address] [place], [address] Nucleated RBC (Bld) [#/Vol] 0 10*3/uL Normal 0-5 [facility] Comment on above: Performed By: #### L 100.0100, L500.2500 ####[facility] [address] [place], [address] Platelet mean volume (Bld) [Entitic vol] 9.4 fL Normal 6.2-12.0 [facility] Comment on above: Performed By: #### L 100.0100, L500.2500 ####[facility] [address] [place], [address] Platelets (Bld) [#/Vol] 402 10*3/uL Normal 150-450 [facility] Comment on above: Performed By: #### L 100.0100, L500.2500 ####[facility] [address] [place], [address] RBC (Bld) [#/Vol] 4.49 10*6/uL Low 4.6-6.2 [facility] Comment on above: Performed By: #### L 100.0100, L500.2500 ####[facility] [address] [place], [address] RDW SD 50.4 fl High 35.1-43.9 [facility] Comment on above: Performed By: #### L 100.0100, L500.2500 ####[facility] [address] [place], [address] WBC (Bld) [#/Vol] 9.6 10*3/uL Normal 4.4-11.0 [facility] Comment on above: Performed By: #### L 100.0100, L500.2500 ####[facility] [address] [place], [address] Vancomycin, Random Levelon 0 12-07-2024 VANCO, RANDOM 17.5 ug/mL High 0.0-15.0 [facility] Comment on above: Result Comment: VANC OMYCIN STANDARD DRUG THERAPY: CRITICAL VALUE IS > 15.0 mg/LVANCOMYCIN HIGH INTENSITY THERAPY: CRITICAL VALUE IS > 20.0 mg/LPLEASE CONTACT PHARMACY SERVICES (#4430) FOR INTERPRETATIONOF RESULTS. THIS RESULT DOES NOT REPRESENT A PEAK OR TROUGHLEVEL FOR THIS DRUG. Performed By: #### L 501.8850 ####[facility] [address] [place], [address] Vancomycin, Trough Levelon 0 12-07-2024 VANCO, TROUGH 23.8 ug/mL High 5.0-15.0 [facility] Comment on above: Order Comment: Comme nts: Trough to be drawn 30 mins prior to scheduled [id number] Result Comment: [place] mmended goal trough ranges [...] therapy recommended for serious lifethreatening infections include:- Cbuxrezemq-Tfwavodxcmgu-Sevbiyfff (Ventilator/Healtcare Associated)-SepsisPLEASE CONTACT PHARMACY SERVICES (#4981) FOR INTERPRETATIONOF RESULTS. Performed By: #### L 501.8820 ####[facility] [address] [place], [address] Basic Metabolic Profile (BMP )on 12-06-2024 BUN/CRE 37.3 RATIO High 10-20 [facility] Comment on above: Performed By: #### L 500.2500, L100.0100 ####[facility] [address] [place], [address] Calcium [Mass/Vol] 8.8 mg/dL Normal 7.6-11.0 [facility] Comment on above: Performed By: #### L 500.2500, L100.0100 ####[facility] [address] [place], [address] Chloride [Moles/Vol] 100 mmol/L Normal 98-108 [facility] Comment on above: Performed By: #### L 500.2500, L100.0100 ####[facility] [address] [place], [address] CO2 [Moles/Vol] 22.3 mmol/L Normal 21.0-32.0 [facility] Comment on above: Performed By: #### L 500.2500, L100.0100 ####[facility] [address] [place], [address] Creatinine [Mass/Vol] 1.21 mg/dL High 0.70-1.20 [facility] Comment on above: Performed By: #### L 500.2500, L100.0100 ####[facility] [address] [place], [address] ECRCL 65.69 ml/min Normal 50-250 [facility] Comment on above: Performed By: #### L 500.2500, L100.0100 ####[facility] [address] [place], [address] GAP 12 Normal 5-15 [facility] Comment on above: Performed By: #### L 500.2500, L100.0100 ####[facility] [address] [place], [address] GFR/1.73 sq M.predicted among non-blacks MDRD (S/P/Bld) [Vol rate/Area] 67 mL/min/{1.73_m2} Normal >60 [facility] Comment on above: Result Comment: mL/m in/1.73m2 CKD-EPI Creatinine Equation (2020) Performed By: #### L 500.2500, L100.0100 ####[facility] [address] [place], [address] Glucose [Mass/Vol] 160 mg/dL High 70-99 [facility] Comment on above: Performed By: #### L 500.2500, L100.0100 ####[facility] [address] [place], [address] Potassium [Moles/Vol] 4.0 mmol/L Normal 3.3-5.1 [facility] Comment on above: Performed By: #### L 500.2500, L100.0100 ####[facility] [address] [place], [address] Sodium [Moles/Vol] 134 mmol/L Normal 133-145 [facility] Comment on above: Performed By: #### L 500.2500, L100.0100 ####[facility] [address] [place], [address] Urea nitrogen [Mass/Vol] 45 mg/dL High 4-19 [facility] Comment on above: Performed By: #### L 500.2500, L100.0100 ####[facility] [address] [place], [address] Bedside Glucoseon 12-06-2024 FINGERSTICK GLU 125 mg/dL High 74-106 [facility] Comment on above: Result Comment: SNEHA GEMENT OF PATIENT CARE PER NURSING PROTOCOL Performed By: #### L 501.080 ####[facility] [address] [place], [address] FINGERSTICK GLU 147 mg/dL High 74-106 [facility] Comment on above: Result Comment: SNEHA GEMENT OF PATIENT CARE PER NURSING PROTOCOL Performed By: #### L 501.080 ####[facility] [address] [place], [address] FINGERSTICK GLU 198 mg/dL High 74-106 [facility] Comment on above: Result Comment: SNEHA GEMENT OF PATIENT CARE PER NURSING PROTOCOL Performed By: #### L 501.080 ####[facility] [address] [place], [address] FINGERSTICK GLU 147 mg/dL High 74-106 [facility] Comment on above: Result Comment: SNEHA GEMENT OF PATIENT CARE PER NURSING PROTOCOL Performed By: #### L 501.080 ####[facility] [address] [place], [address] CBC W/Diff, Automatedon - Absolute Lymph 1.46 X10 3/uL Normal 0.83-4.51 [facility] Comment on above: Performed By: #### L 500.2500, L100.0100 ####[facility] [address] [place], [address] Absolute Neut 9.2 X10 3/uL High 2.0-7.7 [facility] Comment on above: Performed By: #### L 500.2500, L100.0100 ####[facility] [address] [place], [address] Basophils/100 WBC (Bld) 0.5 % Normal 0-1 [facility] Comment on above: Performed By: #### L 500.2500, L100.0100 ####[facility] [address] [place], [address] Eosinophils/100 WBC (Bld) 0.9 % Normal 0-5 [facility] Comment on above: Performed By: #### L 500.2500, L100.0100 ####[facility] [address] [place], [address] Erythrocyte distribution width (RBC) [Ratio] 15.3 % High 11.6-14.6 [facility] Comment on above: Performed By: #### L 500.2500, L100.0100 ####[facility] [address] [place], [address] Hematocrit (Bld) [Volume fraction] 39.4 % Low 40-54 [facility] Comment on above: Performed By: #### L 500.2500, L100.0100 ####[facility] [address] [place], [address] Hemoglobin (Bld) [Mass/Vol] 12.9 g/dL Low 13.0-16.5 [facility] Comment on above: Performed By: #### L 500.2500, L100.0100 ####[facility] [address] [place], [address] IG% 0.400 Normal 0.0-0.9 [facility] Comment on above: Result Comment: IG% - Immature Granulocytes (promyelocytes, myelocytes andmetamyelocytes) > 1% indicates that a LEFT SHIFT is Present. Performed By: #### L 500.2500, L100.0100 ####[facility] [address] [place], [address] Lymphocytes/100 WBC (Bld) 12.6 % Low 19-41 [facility] Comment on above: Performed By: #### L 500.2500, L100.0100 ####[facility] [address] [place], [address] MCH (RBC) [Entitic mass] 29.4 pg Normal 27.0-32.0 [facility] Comment on above: Performed By: #### L 500.2500, L100.0100 ####[facility] [address] [place], [address] MCHC (RBC) [Mass/Vol] 32.7 g/dL Normal 32-36 [facility] Comment on above: Performed By: #### L 500.2500, L100.0100 ####[facility] [address] [place], [address] MCV (RBC) [Entitic vol] 89.7 fL Normal 80-94 [facility] Comment on above: Performed By: #### L 500.2500, L100.0100 ####[facility] [address] [place], [address] Monocytes/100 WBC (Bld) 6.5 % Normal 0-10 [facility] Comment on above: Performed By: #### L 500.2500, L100.0100 ####[facility] [address] [place], [address] Neutrophils/100 WBC (Bld) 79.1 % High 47-70 [facility] Comment on above: Performed By: #### L 500.2500, L100.0100 ####[facility] [address] [facility] [place], [address] Nucleated RBC (Bld) [#/Vol] 0 10*3/uL Normal 0-5 [facility] Comment on above: Performed By: #### L 500.2500, L100.0100 ####[facility] [address] [place], [address] Platelet mean volume (Bld) [Entitic vol] 9.2 fL Normal 6.2-12.0 [facility] Comment on above: Performed By: #### L 500.2500, L100.0100 ####[facility] [address] [place], [address] Platelets (Bld) [#/Vol] 399 10*3/uL Normal 150-450 [facility] Comment on above: Performed By: #### L 500.2500, L100.0100 ####[facility] [address] [place], [address] RBC (Bld) [#/Vol] 4.39 10*6/uL Low 4.6-6.2 [facility] Comment on above: Performed By: #### L 500.2500, L100.0100 ####[facility] [address] [place], [address] RDW SD 49.5 fl High 35.1-43.9 [facility] Comment on above: Performed By: #### L 500.2500, L100.0100 ####[facility] [address] [place], [address] WBC (Bld) [#/Vol] 11.6 10*3/uL High 4.4-11.0 [facility] Comment on above: Performed By: #### L 500.2500, L100.0100 ####[facility] [address] [place], [address] Consultation - Surgicalon Consultation - Surgical Normal [facility] Wound Cultureon 12-06-2024 WC Normal [facility] Comment on above: Performed By: #### M 100.2000, M100.3000 ####[facility] [address] [place], [address] Basic Metabolic Profile (BMP )on 12-05-2024 BUN/CRE 36.9 RATIO High 10-20 [facility] Comment on above: Performed By: #### L 500.2500, L100.0100 ####[facility] [address] [place], [address] Calcium [Mass/Vol] 8.9 mg/dL Normal 7.6-11.0 [facility] Comment on above: Performed By: #### L 500.2500, L100.0100 ####[facility] [address] [place], [address] Chloride [Moles/Vol] 95 mmol/L Low 98-108 [facility] Comment on above: Performed By: #### L 500.2500, L100.0100 ####[facility] [address] [place], [address] CO2 [Moles/Vol] 21.9 mmol/L Normal 21.0-32.0 [facility] Comment on above: Performed By: #### L 500.2500, L100.0100 ####[facility] [address] [place], [address] Creatinine [Mass/Vol] 1.20 mg/dL Normal 0.70-1.20 [facility] Comment on above: Performed By: #### L 500.2500, L100.0100 ####[facility] [address] [place], [address] ECRCL 66.24 ml/min Normal 50-250 [facility] Comment on above: Performed By: #### L 500.2500, L100.0100 ####[facility] [address] [place], [address] GAP 14 Normal 5-15 [facility] Comment on above: Performed By: #### L 500.2500, L100.0100 ####[facility] [address] [place], [address] GFR/1.73 sq M.predicted among non-blacks MDRD (S/P/Bld) [Vol rate/Area] 68 mL/min/{1.73_m2} Normal >60 [facility] Comment on above: Result Comment: mL/m in/1.73m2 CKD-EPI Creatinine Equation (2020) Performed By: #### L 500.2500, L100.0100 ####[facility] [address] [place], [address] Glucose [Mass/Vol] 102 mg/dL High 70-99 [facility] Comment on above: Performed By: #### L 500.2500, L100.0100 ####[facility] [address] [place], [address] Potassium [Moles/Vol] 4.0 mmol/L Normal 3.3-5.1 [facility] Comment on above: Performed By: #### L 500.2500, L100.0100 ####[facility] [address] [place], [address] Sodium [Moles/Vol] 132 mmol/L Low 133-145 [facility] Comment on above: Performed By: #### L 500.2500, L100.0100 ####[facility] [address] [place], [address] Urea nitrogen [Mass/Vol] 44 mg/dL High 4-19 [facility] Comment on above: Performed By: #### L 500.2500, L100.0100 ####[facility] [address] [place], [address] Bedside Glucoseon 12-05-2024 FINGERSTICK GLU 161 mg/dL High 74-106 [facility] Comment on above: Result Comment: SNEHA GEMENT OF PATIENT CARE PER NURSING PROTOCOL Performed By: #### L 501.080 ####[facility] [address] [place], [address] FINGERSTICK GLU 170 mg/dL High 74-106 [facility] Comment on above: Result Comment: SNEHA GEMENT OF PATIENT CARE PER NURSING PROTOCOL Performed By: #### L 501.080 ####[facility] [address] [place], [address] FINGERSTICK GLU 197 mg/dL High 74-106 [facility] Comment on above: Result Comment: SNEHA GEMENT OF PATIENT CARE PER NURSING PROTOCOL Performed By: #### L 501.080 ####[facility] [address] [place], [address] FINGERSTICK GLU 103 mg/dL Normal 74-106 [facility] Comment on above: Result Comment: SNEHA GEMENT OF PATIENT CARE PER NURSING PROTOCOL Performed By: #### L 501.080 ####[facility] [address] [place], [address] CBC W/Diff, Automatedon 09- Absolute Lymph 1.78 X10 3/uL Normal 0.83-4.51 [facility] Comment on above: Performed By: #### L 500.2500, L100.0100 ####[facility] [address] [place], [address] Absolute Neut 10.8 X10 3/uL High 2.0-7.7 [facility] Comment on above: Performed By: #### L 500.2500, L100.0100 ####[facility] [address] [place], [address] Basophils/100 WBC (Bld) 0.4 % Normal 0-1 [facility] Comment on above: Performed By: #### L 500.2500, L100.0100 ####[facility] [address] [place], [address] Eosinophils/100 WBC (Bld) 0.8 % Normal 0-5 [facility] Comment on above: Performed By: #### L 500.2500, L100.0100 ####[facility] [address] [place], [address] Erythrocyte distribution width (RBC) [Ratio] 15.1 % High 11.6-14.6 [facility] Comment on above: Performed By: #### L 500.2500, L100.0100 ####[facility] [address] [place], [address] Hematocrit (Bld) [Volume fraction] 39.1 % Low 40-54 [facility] Comment on above: Performed By: #### L 500.2500, L100.0100 ####[facility] [address] [place], [address] Hemoglobin (Bld) [Mass/Vol] 12.8 g/dL Low 13.0-16.5 [facility] Comment on above: Performed By: #### L 500.2500, L100.0100 ####[facility] [address] [place], [address] IG% 0.600 Normal 0.0-0.9 [facility] Comment on above: Result Comment: IG% - Immature Granulocytes (promyelocytes, myelocytes andmetamyelocytes) > 1% indicates that a LEFT SHIFT is Present. Performed By: #### L 500.2500, L100.0100 ####[facility] [address] [place], [address] Lymphocytes/100 WBC (Bld) 13.1 % Low 19-41 [facility] Comment on above: Performed By: #### L 500.2500, L100.0100 ####[facility] [address] [place], [address] MCH (RBC) [Entitic mass] 29.1 pg Normal 27.0-32.0 [facility] Comment on above: Performed By: #### L 500.2500, L100.0100 ####[facility] [address] [place], [address] MCHC (RBC) [Mass/Vol] 32.7 g/dL Normal 32-36 [facility] Comment on above: Performed By: #### L 500.2500, L100.0100 ####[facility] [address] [place], [address] MCV (RBC) [Entitic vol] 88.9 fL Normal 80-94 [facility] Comment on above: Performed By: #### L 500.2500, L100.0100 ####[facility] [address] [place], [address] Monocytes/100 WBC (Bld) 5.8 % Normal 0-10 [facility] Comment on above: Performed By: #### L 500.2500, L100.0100 ####[facility] [address] [place], [address] Neutrophils/100 WBC (Bld) 79.3 % High 47-70 [facility] Comment on above: Performed By: #### L 500.2500, L100.0100 ####[facility] [address] [place], [address] Nucleated RBC (Bld) [#/Vol] 0 10*3/uL Normal 0-5 [facility] Comment on above: Performed By: #### L 500.2500, L100.0100 ####[facility] [address] [place], [address] Platelet mean volume (Bld) [Entitic vol] 9.3 fL Normal 6.2-12.0 [facility] Comment on above: Performed By: #### L 500.2500, L100.0100 ####[facility] [address] [place], [address] Platelets (Bld) [#/Vol] 458 10*3/uL High 150-450 [facility] Comment on above: Performed By: #### L 500.2500, L100.0100 ####[facility] [address] [place], [address] RBC (Bld) [#/Vol] 4.40 10*6/uL Low 4.6-6.2 [facility] Comment on above: Performed By: #### L 500.2500, L100.0100 ####[facility] [address] [place], [address] RDW SD 48.7 fl High 35.1-43.9 [facility] Comment on above: Performed By: #### L 500.2500, L100.0100 ####[facility] [address] [place], [address] WBC (Bld) [#/Vol] 13.6 10*3/uL High 4.4-11.0 [facility] Comment on above: Performed By: #### L 500.2500, L100.0100 ####[facility] [address] [place], [address] Foot min 3 Viewson 5 Foot min 3 Views Normal [facility] Vancomycin, Trough Levelon 0 12-05-2024 VANCO, TROUGH 20.3 ug/mL High 5.0-15.0 [facility] Comment on above: Order Comment: Comme nts: DRAW 30 MIN PRIOR TO [id number] Result Comment: [place] mmended goal trough ranges [...] therapy recommended for serious lifethreatening infections include:- Bbfdltsted-Nlszyviydvkv-Qttfyfblf (Ventilator/Healtcare Associated)-SepsisPLEASE CONTACT PHARMACY SERVICES (#5324) FOR INTERPRETATIONOF RESULTS. Performed By: #### L 501.8820 ####[facility] [address] [facility] [address] Bedside Glucoseon 12-04-2024 FINGERSTICK GLU 174 mg/dL High 74-106 [facility] Comment on above: Result Comment: SNEHA GEMENT OF PATIENT CARE PER NURSING PROTOCOL Performed By: #### L 501.080 ####[facility] [address] [facility] [address] FINGERSTICK GLU 144 mg/dL High 74-106 [facility] Comment on above: Result Comment: SNEHA GEMENT OF PATIENT CARE PER NURSING PROTOCOL Performed By: #### L 501.080 ####[facility] [address] [facility] [address] FINGERSTICK GLU 153 mg/dL High 74-106 [facility] Comment on above: Result Comment: SNEHA GEMENT OF PATIENT CARE PER NURSING PROTOCOL Performed By: #### L 501.080 ####[facility] [address] [facility] [address] FINGERSTICK GLU 110 mg/dL High 74-106 [facility] Comment on above: Result Comment: SNEHA GEMENT OF PATIENT CARE PER NURSING PROTOCOL Performed By: #### L 501.080 ####[facility] [address] [facility] [address] Basic Metabolic Profile (BMP )on 12-03-2024 BUN/CRE 31.6 RATIO High 10-20 [facility] Comment on above: Performed By: #### L 500.2500, L100.0100 ####[facility] [address] [place], [address] Calcium [Mass/Vol] 8.8 mg/dL Normal 7.6-11.0 [facility] Comment on above: Performed By: #### L 500.2500, L100.0100 ####[facility] [address] [place], [address] Chloride [Moles/Vol] 95 mmol/L Low 98-108 [facility] Comment on above: Performed By: #### L 500.2500, L100.0100 ####[facility] [address] [place], [address] CO2 [Moles/Vol] 23.6 mmol/L Normal 21.0-32.0 [facility] Comment on above: Performed By: #### L 500.2500, L100.0100 ####[facility] [address] [place], [address] Creatinine [Mass/Vol] 1.17 mg/dL Normal 0.70-1.20 [facility] Comment on above: Performed By: #### L 500.2500, L100.0100 ####[facility] [address] [place], [address] ECRCL 67.93 ml/min Normal 50-250 [facility] Comment on above: Performed By: #### L 500.2500, L100.0100 ####[facility] [address] [place], [address] GAP 13 Normal 5-15 [facility] Comment on above: Performed By: #### L 500.2500, L100.0100 ####[facility] [address] [place], [address] GFR/1.73 sq M.predicted among non-blacks MDRD (S/P/Bld) [Vol rate/Area] 70 mL/min/{1.73_m2} Normal >60 [facility] Comment on above: Result Comment: mL/m in/1.73m2 CKD-EPI Creatinine Equation (2020) Performed By: #### L 500.2500, L100.0100 ####[facility] [address] [place], [address] Glucose [Mass/Vol] 102 mg/dL High 70-99 [facility] Comment on above: Performed By: #### L 500.2500, L100.0100 ####[facility] [address] [place], [address] Potassium [Moles/Vol] 4.4 mmol/L Normal 3.3-5.1 [facility] Comment on above: Performed By: #### L 500.2500, L100.0100 ####[facility] [address] [place], [address] Sodium [Moles/Vol] 132 mmol/L Low 133-145 [facility] Comment on above: Performed By: #### L 500.2500, L100.0100 ####[facility] [address] [place], [address] Urea nitrogen [Mass/Vol] 37 mg/dL High 4-19 [facility] Comment on above: Performed By: #### L 500.2500, L100.0100 ####[facility] [address] [place], [address] Bedside Glucoseon 12-03-2024 FINGERSTICK GLU 151 mg/dL High 74-106 [facility] Comment on above: Result Comment: SNEHA GEMENT OF PATIENT CARE PER NURSING PROTOCOL Performed By: #### L 501.080 ####[facility] [address] [place], [address] FINGERSTICK GLU 205 mg/dL High 74-106 [facility] Comment on above: Result Comment: SNEHA GEMENT OF PATIENT CARE PER NURSING PROTOCOL Performed By: #### L 501.080 ####[facility] [address] [place], [address] FINGERSTICK GLU 167 mg/dL High 74-106 [facility] Comment on above: Result Comment: SNEHA GEMENT OF PATIENT CARE PER NURSING PROTOCOL Performed By: #### L 501.080 ####[facility] [address] [place], [address] FINGERSTICK GLU 109 mg/dL High 74-106 [facility] Comment on above: Result Comment: SNEHA GEMENT OF PATIENT CARE PER NURSING PROTOCOL Performed By: #### L 501.080 ####[facility] [address] [place], [address] CBC W/Diff, Automatedon 08-3 0-5 Absolute Lymph 1.66 X10 3/uL Normal 0.83-4.51 [facility] Comment on above: Performed By: #### L 500.2500, L100.0100 ####[facility] [address] [place], [address] Absolute Neut 9.7 X10 3/uL High 2.0-7.7 [facility] Comment on above: Performed By: #### L 500.2500, L100.0100 ####[facility] [address] [place], [address] Basophils/100 WBC (Bld) 0.3 % Normal 0-1 [facility] Comment on above: Performed By: #### L 500.2500, L100.0100 ####[facility] [address] [place], [address] Eosinophils/100 WBC (Bld) 1.5 % Normal 0-5 [facility] Comment on above: Performed By: #### L 500.2500, L100.0100 ####[facility] [address] [place], [address] Erythrocyte distribution width (RBC) [Ratio] 15.4 % High 11.6-14.6 [facility] Comment on above: Performed By: #### L 500.2500, L100.0100 ####[facility] [address] [place], [address] Hematocrit (Bld) [Volume fraction] 41.0 % Normal 40-54 [facility] Comment on above: Performed By: #### L 500.2500, L100.0100 ####[facility] [address] [place], [address] Hemoglobin (Bld) [Mass/Vol] 13.4 g/dL Normal 13.0-16.5 [facility] Comment on above: Performed By: #### L 500.2500, L100.0100 ####[facility] [address] [place], [address] IG% 0.600 Normal 0.0-0.9 [facility] Comment on above: Result Comment: IG% - Immature Granulocytes (promyelocytes, myelocytes andmetamyelocytes) > 1% indicates that a LEFT SHIFT is Present. Performed By: #### L 500.2500, L100.0100 ####[facility] [address] [place], [address] Lymphocytes/100 WBC (Bld) 13.5 % Low 19-41 [facility] Comment on above: Performed By: #### L 500.2500, L100.0100 ####[facility] [address] [place], [address] MCH (RBC) [Entitic mass] 29.3 pg Normal 27.0-32.0 [facility] Comment on above: Performed By: #### L 500.2500, L100.0100 ####[facility] [address] [place], [address] MCHC (RBC) [Mass/Vol] 32.7 g/dL Normal 32-36 [facility] Comment on above: Performed By: #### L 500.2500, L100.0100 ####[facility] [address] [place], [address] MCV (RBC) [Entitic vol] 89.7 fL Normal 80-94 [facility] Comment on above: Performed By: #### L 500.2500, L100.0100 ####[facility] [address] [place], [address] Monocytes/100 WBC (Bld) 5.8 % Normal 0-10 [facility] Comment on above: Performed By: #### L 500.2500, L100.0100 ####[facility] [address] [place], [address] Neutrophils/100 WBC (Bld) 78.3 % High 47-70 [facility] Comment on above: Performed By: #### L 500.2500, L100.0100 ####[facility] [address] [place], [address] Nucleated RBC (Bld) [#/Vol] 0 10*3/uL Normal 0-5 [facility] Comment on above: Performed By: #### L 500.2500, L100.0100 ####[facility] [address] [place], [address] Platelet mean volume (Bld) [Entitic vol] 9.2 fL Normal 6.2-12.0 [facility] Comment on above: Performed By: #### L 500.2500, L100.0100 ####[facility] [address] [place], [address] Platelets (Bld) [#/Vol] 424 10*3/uL Normal 150-450 [facility] Comment on above: Performed By: #### L 500.2500, L100.0100 ####[facility] [address] [place], [address] RBC (Bld) [#/Vol] 4.57 10*6/uL Low 4.6-6.2 [facility] Comment on above: Performed By: #### L 500.2500, L100.0100 ####[facility] [address] [place], [address] RDW SD 49.1 fl High 35.1-43.9 [facility] Comment on above: Performed By: #### L 500.2500, L100.0100 ####[facility] [address] [place], [address] WBC (Bld) [#/Vol] 12.3 10*3/uL High 4.4-11.0 [facility] Comment on above: Performed By: #### L 500.2500, L100.0100 ####[facility] [address] [place], [address] Vancomycin, Random Levelon 0 12-03-2024 VANCO, RANDOM 16.5 ug/mL High 0.0-15.0 [facility] Comment on above: Result Comment: VANC OMYCIN STANDARD DRUG THERAPY: CRITICAL VALUE IS > 15.0 mg/LVANCOMYCIN HIGH INTENSITY THERAPY: CRITICAL VALUE IS > 20.0 mg/LPLEASE CONTACT PHARMACY SERVICES (#5636) FOR INTERPRETATIONOF RESULTS. THIS RESULT DOES NOT REPRESENT A PEAK OR TROUGHLEVEL FOR THIS DRUG. Performed By: #### L 501.8850 ####[facility] [address] [place], [address] Vancomycin, Trough Levelon 0 - VANCO, TROUGH 23.4 ug/mL High 5.0-15.0 [facility] Comment on above: Order Comment: Comme nts: DRAW 30 MIN PRIOR TO [id number] Result Comment: Milton mmended goal trough ranges [...] therapy recommended for serious lifethreatening infections include:- Zqwectnero-Kuqlcuueqjkp-Xkpnutpam (Ventilator/Healtcare Associated)-SepsisPLEASE CONTACT PHARMACY SERVICES (#7731) FOR INTERPRETATIONOF RESULTS. Performed By: #### L 501.8820 ####[facility] [address] [place], [address] Basic Metabolic Profile (BMP )on 12-02-2024 BUN/CRE 29.0 RATIO High 10-20 [facility] Comment on above: Performed By: #### L 500.2500, L100.0100 ####[facility] [address] [place], [address] Calcium [Mass/Vol] 8.9 mg/dL Normal 7.6-11.0 [facility] Comment on above: Performed By: #### L 500.2500, L100.0100 ####[facility] [address] [place], [address] Chloride [Moles/Vol] 97 mmol/L Low 98-108 [facility] Comment on above: Performed By: #### L 500.2500, L100.0100 ####[facility] [address] [place], [address] CO2 [Moles/Vol] 25.5 mmol/L Normal 21.0-32.0 [facility] Comment on above: Performed By: #### L 500.2500, L100.0100 ####[facility] [address] [place], [address] Creatinine [Mass/Vol] 1.20 mg/dL Normal 0.70-1.20 [facility] Comment on above: Performed By: #### L 500.2500, L100.0100 ####[facility] [address] [place], [address] ECRCL 66.24 ml/min Normal 50-250 [facility] Comment on above: Performed By: #### L 500.2500, L100.0100 ####[facility] [address] [place], [address] GAP 12 Normal 5-15 [facility] Comment on above: Performed By: #### L 500.2500, L100.0100 ####[facility] [address] [place], [address] GFR/1.73 sq M.predicted among non-blacks MDRD (S/P/Bld) [Vol rate/Area] 68 mL/min/{1.73_m2} Normal >60 [facility] Comment on above: Result Comment: mL/m in/1.73m2 CKD-EPI Creatinine Equation (2020) Performed By: #### L 500.2500, L100.0100 ####[facility] [address] [place], [address] Glucose [Mass/Vol] 116 mg/dL High 70-99 [facility] Comment on above: Performed By: #### L 500.2500, L100.0100 ####[facility] [address] [place], [address] Potassium [Moles/Vol] 4.5 mmol/L Normal 3.3-5.1 [facility] Comment on above: Result Comment: Hemo lysis present, Results??could be affected.?? Performed By: #### L 500.2500, L100.0100 ####[facility] [address] [place], [address] Sodium [Moles/Vol] 134 mmol/L Normal 133-145 [facility] Comment on above: Performed By: #### L 500.2500, L100.0100 ####[facility] [address] [place], [address] Urea nitrogen [Mass/Vol] 35 mg/dL High 4-19 [facility] Comment on above: Performed By: #### L 500.2500, L100.0100 ####[facility] [address] [place], [address] Bedside Glucoseon 12-02-2024 FINGERSTICK GLU 187 mg/dL High 74-106 [facility] Comment on above: Result Comment: SNEHA GEMENT OF PATIENT CARE PER NURSING PROTOCOL Performed By: #### L 501.080 ####[facility] [address] [place], [address] FINGERSTICK GLU 148 mg/dL High 74-106 [facility] Comment on above: Result Comment: SNEHA GEMENT OF PATIENT CARE PER NURSING PROTOCOL Performed By: #### L 501.080 ####[facility] [address] [place], [address] FINGERSTICK GLU 184 mg/dL High 74-106 [facility] Comment on above: Result Comment: SNEHA GEMENT OF PATIENT CARE PER NURSING PROTOCOL Performed By: #### L 501.080 ####[facility] [address] [place], [address] FINGERSTICK GLU 91 mg/dL Normal 74-106 [facility] Comment on above: Result Comment: SNEHA GEMENT OF PATIENT CARE PER NURSING PROTOCOL Performed By: #### L 501.080 ####[facility] [address] [place], [address] FINGERSTICK GLU 169 mg/dL High 74-106 [facility] Comment on above: Result Comment: SNEHA GEMENT OF PATIENT CARE PER NURSING PROTOCOL Performed By: #### L 501.080 ####[facility] [address] [place], [address] CBC W/Diff, Automatedon - Absolute Lymph 1.87 X10 3/uL Normal 0.83-4.51 [facility] Comment on above: Performed By: #### L 500.2500, L100.0100 ####[facility] [address] [place], [address] Absolute Neut 11.8 X10 3/uL High 2.0-7.7 [facility] Comment on above: Performed By: #### L 500.2500, L100.0100 ####[facility] [address] [place], [address] Basophils/100 WBC (Bld) 0.2 % Normal 0-1 [facility] Comment on above: Performed By: #### L 500.2500, L100.0100 ####[facility] [address] [place], [address] Eosinophils/100 WBC (Bld) 1.8 % Normal 0-5 [facility] Comment on above: Performed By: #### L 500.2500, L100.0100 ####[facility] [address] [place], [address] Erythrocyte distribution width (RBC) [Ratio] 15.5 % High 11.6-14.6 [facility] Comment on above: Performed By: #### L 500.2500, L100.0100 ####[facility] [address] [place], [address] Hematocrit (Bld) [Volume fraction] 42.2 % Normal 40-54 [facility] Comment on above: Performed By: #### L 500.2500, L100.0100 ####[facility] [address] [place], [address] Hemoglobin (Bld) [Mass/Vol] 13.6 g/dL Normal 13.0-16.5 [facility] Comment on above: Performed By: #### L 500.2500, L100.0100 ####[facility] [address] [place], [address] IG% 0.600 Normal 0.0-0.9 [facility] Comment on above: Result Comment: IG% - Immature Granulocytes (promyelocytes, myelocytes andmetamyelocytes) > 1% indicates that a LEFT SHIFT is Present. Performed By: #### L 500.2500, L100.0100 ####[facility] [address] [place], [address] Lymphocytes/100 WBC (Bld) 12.6 % Low 19-41 [facility] Comment on above: Performed By: #### L 500.2500, L100.0100 ####[facility] [address] [place], [address] MCH (RBC) [Entitic mass] 29.2 pg Normal 27.0-32.0 [facility] Comment on above: Performed By: #### L 500.2500, L100.0100 ####[facility] [address] [place], [address] MCHC (RBC) [Mass/Vol] 32.2 g/dL Normal 32-36 [facility] Comment on above: Performed By: #### L 500.2500, L100.0100 ####[facility] [address] [place], [address] MCV (RBC) [Entitic vol] 90.6 fL Normal 80-94 [facility] Comment on above: Performed By: #### L 500.2500, L100.0100 ####[facility] [address] [place], [address] Monocytes/100 WBC (Bld) 5.3 % Normal 0-10 [facility] Comment on above: Performed By: #### L 500.2500, L100.0100 ####[facility] [address] [place], [address] Neutrophils/100 WBC (Bld) 79.5 % High 47-70 [facility] Comment on above: Performed By: #### L 500.2500, L100.0100 ####[facility] [address] [place], [address] Nucleated RBC (Bld) [#/Vol] 0 10*3/uL Normal 0-5 [facility] Comment on above: Performed By: #### L 500.2500, L100.0100 ####[facility] [address] [place], [address] Platelet mean volume (Bld) [Entitic vol] 9.4 fL Normal 6.2-12.0 [facility] Comment on above: Performed By: #### L 500.2500, L100.0100 ####[facility] [address] [place], [address] Platelets (Bld) [#/Vol] 481 10*3/uL High 150-450 [facility] Comment on above: Performed By: #### L 500.2500, L100.0100 ####[facility] [address] [place], [address] RBC (Bld) [#/Vol] 4.66 10*6/uL Normal 4.6-6.2 [facility] Comment on above: Performed By: #### L 500.2500, L100.0100 ####[facility] [address] [place], [address] RDW SD 50.1 fl High 35.1-43.9 [facility] Comment on above: Performed By: #### L 500.2500, L100.0100 ####[facility] [address] [place], [address] WBC (Bld) [#/Vol] 14.8 10*3/uL High 4.4-11.0 [facility] Comment on above: Performed By: #### L 500.2500, L100.0100 ####[facility] [address] [place], [address] Gram Stainon 12-02-2024 GS List Antibiotics [place] t 48 Hours? vanco Left top of foot Gram Stain 3+ Gram negative rods 2+ Gram positive cocci Rare Epithelial cells No White Blood Cells Normal [facility] Comment on above: Performed By: #### M 100.2000, M100.3000 ####[facility] [address] [place], [address] Basic Metabolic Profile (BMP )on 12-01-2024 BUN/CRE 31.5 RATIO High 10-20 [facility] Comment on above: Performed By: #### L 500.2500, L100.0100 ####[facility] [address] [place], [address] Calcium [Mass/Vol] 8.8 mg/dL Normal 7.6-11.0 [facility] Comment on above: Performed By: #### L 500.2500, L100.0100 ####[facility] [address] [place], [address] Chloride [Moles/Vol] 99 mmol/L Normal 98-108 [facility] Comment on above: Performed By: #### L 500.2500, L100.0100 ####[facility] [address] [place], [address] CO2 [Moles/Vol] 21.2 mmol/L Normal 21.0-32.0 [facility] Comment on above: Performed By: #### L 500.2500, L100.0100 ####[facility] [address] [place], [address] Creatinine [Mass/Vol] 1.21 mg/dL High 0.70-1.20 [facility] Comment on above: Performed By: #### L 500.2500, L100.0100 ####[facility] [address] [place], [address] ECRCL 65.69 ml/min Normal 50-250 [facility] Comment on above: Performed By: #### L 500.2500, L100.0100 ####[facility] [address] [place], [address] GAP 13 Normal 5-15 [facility] Comment on above: Performed By: #### L 500.2500, L100.0100 ####[facility] [address] [place], [address] GFR/1.73 sq M.predicted among non-blacks MDRD (S/P/Bld) [Vol rate/Area] 67 mL/min/{1.73_m2} Normal >60 [facility] Comment on above: Result Comment: mL/m in/1.73m2 CKD-EPI Creatinine Equation (2020) Performed By: #### L 500.2500, L100.0100 ####[facility] [address] [place], [address] Glucose [Mass/Vol] 125 mg/dL High 70-99 [facility] Comment on above: Performed By: #### L 500.2500, L100.0100 ####[facility] [address] [place], [address] Potassium [Moles/Vol] 4.5 mmol/L Normal 3.3-5.1 [facility] Comment on above: Performed By: #### L 500.2500, L100.0100 ####[facility] [address] [place], [address] Sodium [Moles/Vol] 133 mmol/L Normal 133-145 [facility] Comment on above: Performed By: #### L 500.2500, L100.0100 ####[facility] [address] [place], [address] Urea nitrogen [Mass/Vol] 38 mg/dL High 4-19 [facility] Comment on above: Performed By: #### L 500.2500, L100.0100 ####[facility] [address] [place], [address] Bedside Glucoseon 12-01-2024 FINGERSTICK GLU 160 mg/dL High 74-106 [facility] Comment on above: Result Comment: SNEHA GEMENT OF PATIENT CARE PER NURSING PROTOCOL Performed By: #### L 501.080 ####[facility] [address] [place], [address] FINGERSTICK GLU 147 mg/dL High 74-106 [facility] Comment on above: Result Comment: SNEHA GEMENT OF PATIENT CARE PER NURSING PROTOCOL Performed By: #### L 501.080 ####[facility] [address] [place], [address] FINGERSTICK GLU 106 mg/dL Normal 74-106 [facility] Comment on above: Result Comment: SNEHA GEMENT OF PATIENT CARE PER NURSING PROTOCOL Performed By: #### L 501.080 ####[facility] [address] [place], [address] CBC W/Diff, Automatedon 11-05 Absolute Lymph 1.76 X10 3/uL Normal 0.83-4.51 [facility] Comment on above: Performed By: #### L 500.2500, L100.0100 ####[facility] [address] [place], [address] Absolute Neut 9.5 X10 3/uL High 2.0-7.7 [facility] Comment on above: Performed By: #### L 500.2500, L100.0100 ####[facility] [address] [place], [address] Basophils/100 WBC (Bld) 0.2 % Normal 0-1 [facility] Comment on above: Performed By: #### L 500.2500, L100.0100 ####[facility] [address] [place], [address] Eosinophils/100 WBC (Bld) 1.1 % Normal 0-5 [facility] Comment on above: Performed By: #### L 500.2500, L100.0100 ####[facility] [address] [place], [address] Erythrocyte distribution width (RBC) [Ratio] 15.1 % High 11.6-14.6 [facility] Comment on above: Performed By: #### L 500.2500, L100.0100 ####[facility] [address] [place], [address] Hematocrit (Bld) [Volume fraction] 39.4 % Low 40-54 [facility] Comment on above: Performed By: #### L 500.2500, L100.0100 ####[facility] [address] [place], [address] Hemoglobin (Bld) [Mass/Vol] 12.8 g/dL Low 13.0-16.5 [facility] Comment on above: Performed By: #### L 500.2500, L100.0100 ####[facility] [address] [place], [address] IG% 0.700 Normal 0.0-0.9 [facility] Comment on above: Result Comment: IG% - Immature Granulocytes (promyelocytes, myelocytes andmetamyelocytes) > 1% indicates that a LEFT SHIFT is Present. Performed By: #### L 500.2500, L100.0100 ####[facility] [address] [place], [address] Lymphocytes/100 WBC (Bld) 14.3 % Low 19-41 [facility] Comment on above: Performed By: #### L 500.2500, L100.0100 ####[facility] [address] [place], [address] MCH (RBC) [Entitic mass] 28.7 pg Normal 27.0-32.0 [facility] Comment on above: Performed By: #### L 500.2500, L100.0100 ####[facility] [address] [place], [address] MCHC (RBC) [Mass/Vol] 32.5 g/dL Normal 32-36 [facility] Comment on above: Performed By: #### L 500.2500, L100.0100 ####[facility] [address] [place], [address] MCV (RBC) [Entitic vol] 88.3 fL Normal 80-94 [facility] Comment on above: Performed By: #### L 500.2500, L100.0100 ####[facility] [address] [place], [address] Monocytes/100 WBC (Bld) 6.7 % Normal 0-10 [facility] Comment on above: Performed By: #### L 500.2500, L100.0100 ####[facility] [address] [place], [address] Neutrophils/100 WBC (Bld) 77.0 % High 47-70 [facility] Comment on above: Performed By: #### L 500.2500, L100.0100 ####[facility] [address] [place], [address] Nucleated RBC (Bld) [#/Vol] 0 10*3/uL Normal 0-5 [facility] Comment on above: Performed By: #### L 500.2500, L100.0100 ####[facility] [address] [place], [address] Platelet mean volume (Bld) [Entitic vol] 9.5 fL Normal 6.2-12.0 [facility] Comment on above: Performed By: #### L 500.2500, L100.0100 ####[facility] [address] [place], [address] Platelets (Bld) [#/Vol] 441 10*3/uL Normal 150-450 [facility] Comment on above: Performed By: #### L 500.2500, L100.0100 ####[facility] [address] [place], [address] RBC (Bld) [#/Vol] 4.46 10*6/uL Low 4.6-6.2 [facility] Comment on above: Performed By: #### L 500.2500, L100.0100 ####[facility] [address] [place], [address] RDW SD 48.0 fl High 35.1-43.9 [facility] Comment on above: Performed By: #### L 500.2500, L100.0100 ####[facility] [address] [place], [address] WBC (Bld) [#/Vol] 12.3 10*3/uL High 4.4-11.0 [facility] Comment on above: Performed By: #### L 500.2500, L100.0100 ####[facility] [address] [place], [address] Ankle Brachial Indexon 11-30 Ankle Brachial Index Normal [facility] Basic Metabolic Profile (BMP )on 11-30-2024 BUN/CRE 27.4 RATIO High 10-20 [facility] Comment on above: Performed By: #### L 500.2500, L100.0100 ####[facility] [address] [place], [address] Calcium [Mass/Vol] 9.2 mg/dL Normal 7.6-11.0 [facility] Comment on above: Performed By: #### L 500.2500, L100.0100 ####[facility] [address] [place], [address] Chloride [Moles/Vol] 99 mmol/L Normal 98-108 [facility] Comment on above: Performed By: #### L 500.2500, L100.0100 ####[facility] [address] [place], [address] CO2 [Moles/Vol] 22.3 mmol/L Normal 21.0-32.0 [facility] Comment on above: Performed By: #### L 500.2500, L100.0100 ####[facility] [address] [place], [address] Creatinine [Mass/Vol] 1.33 mg/dL High 0.70-1.20 [facility] Comment on above: Performed By: #### L 500.2500, L100.0100 ####[facility] [address] [place], [address] ECRCL 59.76 ml/min Normal 50-250 [facility] Comment on above: Performed By: #### L 500.2500, L100.0100 ####[facility] [address] [place], [address] GAP 12 Normal 5-15 [facility] Comment on above: Performed By: #### L 500.2500, L100.0100 ####[facility] [address] [place], [address] GFR/1.73 sq M.predicted among non-blacks MDRD (S/P/Bld) [Vol rate/Area] 60 mL/min/{1.73_m2} Normal >60 [facility] Comment on above: Result Comment: mL/m in/1.73m2 CKD-EPI Creatinine Equation (2020) Performed By: #### L 500.2500, L100.0100 ####[facility] [address] [place], [address] Glucose [Mass/Vol] 119 mg/dL High 70-99 [facility] Comment on above: Performed By: #### L 500.2500, L100.0100 ####[facility] [address] [place], [address] Potassium [Moles/Vol] 5.0 mmol/L Normal 3.3-5.1 [facility] Comment on above: Performed By: #### L 500.2500, L100.0100 ####[facility] [address] [place], [address] Sodium [Moles/Vol] 133 mmol/L Normal 133-145 [facility] Comment on above: Performed By: #### L 500.2500, L100.0100 ####[facility] [address] [place], [address] Urea nitrogen [Mass/Vol] 36 mg/dL High 4-19 [facility] Comment on above: Performed By: #### L 500.2500, L100.0100 ####[facility] [address] [place], [address] Bedside Glucoseon 11-30-2024 FINGERSTICK GLU 171 mg/dL High 74-106 [facility] Comment on above: Result Comment: SNEHA GEMENT OF PATIENT CARE PER NURSING PROTOCOL Performed By: #### L 501.080 ####[facility] [address] [place], [address] FINGERSTICK GLU 131 mg/dL High 74-106 [facility] Comment on above: Result Comment: SNEHA GEMENT OF PATIENT CARE PER NURSING PROTOCOL Performed By: #### L 501.080 ####[facility] [address] [place], [address] FINGERSTICK GLU 175 mg/dL High 74-106 [facility] Comment on above: Result Comment: SNEHA GEMENT OF PATIENT CARE PER NURSING PROTOCOL Performed By: #### L 501.080 ####[facility] [address] [place], [address] FINGERSTICK GLU 123 mg/dL High 74-106 [facility] Comment on above: Result Comment: SNEHA DUNCAN OF PATIENT CARE PER NURSING PROTOCOL Performed By: #### L 501.080 ####[facility] [address] [place], [address] CBC W/Diff, Automatedon 11-05 Absolute Lymph 1.65 X10 3/uL Normal 0.83-4.51 [facility] Comment on above: Performed By: #### L 500.2500, L100.0100 ####[facility] [address] [place], [address] Absolute Neut 9.0 X10 3/uL High 2.0-7.7 [facility] Comment on above: Performed By: #### L 500.2500, L100.0100 ####[facility] [address] [place], [address] Basophils/100 WBC (Bld) 0.2 % Normal 0-1 [facility] Comment on above: Performed By: #### L 500.2500, L100.0100 ####[facility] [address] [place], [address] Eosinophils/100 WBC (Bld) 1.0 % Normal 0-5 [facility] Comment on above: Performed By: #### L 500.2500, L100.0100 ####[facility] [address] [place], [address] Erythrocyte distribution width (RBC) [Ratio] 15.1 % High 11.6-14.6 [facility] Comment on above: Performed By: #### L 500.2500, L100.0100 ####[facility] [address] [place], [address] Hematocrit (Bld) [Volume fraction] 40.5 % Normal 40-54 [facility] Comment on above: Performed By: #### L 500.2500, L100.0100 ####[facility] [address] [place], [address] Hemoglobin (Bld) [Mass/Vol] 13.4 g/dL Normal 13.0-16.5 [facility] Comment on above: Performed By: #### L 500.2500, L100.0100 ####[facility] [address] [place], [address] IG% 0.800 Normal 0.0-0.9 [facility] Comment on above: Result Comment: IG% - Immature Granulocytes (promyelocytes, myelocytes andmetamyelocytes) > 1% indicates that a LEFT SHIFT is Present. Performed By: #### L 500.2500, L100.0100 ####[facility] [address] [place], [address] Lymphocytes/100 WBC (Bld) 14.0 % Low 19-41 [facility] Comment on above: Performed By: #### L 500.2500, L100.0100 ####[facility] [address] [place], [address] MCH (RBC) [Entitic mass] 29.6 pg Normal 27.0-32.0 [facility] Comment on above: Performed By: #### L 500.2500, L100.0100 ####[facility] [address] [place], [address] MCHC (RBC) [Mass/Vol] 33.1 g/dL Normal 32-36 [facility] Comment on above: Performed By: #### L 500.2500, L100.0100 ####[facility] [address] [place], [address] MCV (RBC) [Entitic vol] 89.6 fL Normal 80-94 [facility] Comment on above: Performed By: #### L 500.2500, L100.0100 ####[facility] [address] [place], [address] Monocytes/100 WBC (Bld) 8.1 % Normal 0-10 [facility] Comment on above: Performed By: #### L 500.2500, L100.0100 ####[facility] [address] [place], [address] Neutrophils/100 WBC (Bld) 75.9 % High 47-70 [facility] Comment on above: Performed By: #### L 500.2500, L100.0100 ####[facility] [address] [place], [address] Nucleated RBC (Bld) [#/Vol] 0 10*3/uL Normal 0-5 [facility] Comment on above: Performed By: #### L 500.2500, L100.0100 ####[facility] [address] [place], [address] Platelet mean volume (Bld) [Entitic vol] 9.3 fL Normal 6.2-12.0 [facility] Comment on above: Performed By: #### L 500.2500, L100.0100 ####[facility] [address] [place], [address] Platelets (Bld) [#/Vol] 442 10*3/uL Normal 150-450 [facility] Comment on above: Performed By: #### L 500.2500, L100.0100 ####[facility] [address] [place], [address] RBC (Bld) [#/Vol] 4.52 10*6/uL Low 4.6-6.2 [facility] Comment on above: Performed By: #### L 500.2500, L100.0100 ####[facility] [address] [place], [address] RDW SD 48.7 fl High 35.1-43.9 [facility] Comment on above: Performed By: #### L 500.2500, L100.0100 ####[facility] [address] [place], [address] WBC (Bld) [#/Vol] 11.8 10*3/uL High 4.4-11.0 [facility] Comment on above: Performed By: #### L 500.2500, L100.0100 ####[facility] [address] [place], [address] Basic Metabolic Profile (BMP )on 11-29-2024 BUN/CRE 29.4 RATIO High 10-20 [facility] Comment on above: Performed By: #### L 100.0100, L500.2500 ####[facility] [address] [place], [address] Calcium [Mass/Vol] 9.0 mg/dL Normal 7.6-11.0 [facility] Comment on above: Performed By: #### L 100.0100, L500.2500 ####[facility] [address] [place], [address] Chloride [Moles/Vol] 104 mmol/L Normal 98-108 [facility] Comment on above: Performed By: #### L 100.0100, L500.2500 ####[facility] [address] [place], [address] CO2 [Moles/Vol] 17.3 mmol/L Low 21.0-32.0 [facility] Comment on above: Performed By: #### L 100.0100, L500.2500 ####[facility] [address] [place], [address] Creatinine [Mass/Vol] 1.14 mg/dL Normal 0.70-1.20 [facility] Comment on above: Performed By: #### L 100.0100, L500.2500 ####[facility] [address] [place], [address] ECRCL 76.31 ml/min Normal 50-250 [facility] Comment on above: Performed By: #### L 100.0100, L500.2500 ####[facility] [address] [place], [address] GAP 13 Normal 5-15 [facility] Comment on above: Performed By: #### L 100.0100, L500.2500 ####[facility] [address] [place], [address] GFR/1.73 sq M.predicted among non-blacks MDRD (S/P/Bld) [Vol rate/Area] 72 mL/min/{1.73_m2} Normal >60 [facility] Comment on above: Result Comment: mL/m in/1.73m2 CKD-EPI Creatinine Equation (2020) Performed By: #### L 100.0100, L500.2500 ####[facility] [address] [place], [address] Glucose [Mass/Vol] 59 mg/dL Low 70-99 [facility] Comment on above: Performed By: #### L 100.0100, L500.2500 ####[facility] [address] [place], [address] Potassium [Moles/Vol] 4.9 mmol/L Normal 3.3-5.1 [facility] Comment on above: Performed By: #### L 100.0100, L500.2500 ####[facility] [address] [place], [address] Sodium [Moles/Vol] 134 mmol/L Normal 133-145 [facility] Comment on above: Performed By: #### L 100.0100, L500.2500 ####[facility] [address] [place], [address] Urea nitrogen [Mass/Vol] 34 mg/dL High 4-19 [facility] Comment on above: Performed By: #### L 100.0100, L500.2500 ####[facility] [address] [place], [address] Bedside Glucoseon 11-29-2024 FINGERSTICK GLU 168 mg/dL High 74-106 [facility] Comment on above: Result Comment: SNEHA GEMENT OF PATIENT CARE PER NURSING PROTOCOL Performed By: #### L 501.080 ####[facility] [address] [place], [address] FINGERSTICK GLU 142 mg/dL High 74-106 [facility] Comment on above: Result Comment: SNEHA GEMENT OF PATIENT CARE PER NURSING PROTOCOL Performed By: #### L 501.080 ####[facility] [address] [place], [address] FINGERSTICK GLU 75 mg/dL Normal 74-106 [facility] Comment on above: Result Comment: SNEHA GEMENT OF PATIENT CARE PER NURSING PROTOCOL Performed By: #### L 501.080 ####[facility] [address] [place], [address] FINGERSTICK GLU 79 mg/dL Normal 74-106 [facility] Comment on above: Result Comment: SNEHA GEMENT OF PATIENT CARE PER NURSING PROTOCOL Performed By: #### L 501.080 ####[facility] [address] [place], [address] CBC W/Diff, Automatedon 08- Absolute Lymph 1.59 X10 3/uL Normal 0.83-4.51 [facility] Comment on above: Performed By: #### L 100.0100, L500.2500 ####[facility] [address] [place], [address] Absolute Neut 7.0 X10 3/uL Normal 2.0-7.7 [facility] Comment on above: Performed By: #### L 100.0100, L500.2500 ####[facility] [address] [place], [address] Basophils/100 WBC (Bld) 0.4 % Normal 0-1 [facility] Comment on above: Performed By: #### L 100.0100, L500.2500 ####[facility] [address] [place], [address] Eosinophils/100 WBC (Bld) 1.1 % Normal 0-5 [facility] Comment on above: Performed By: #### L 100.0100, L500.2500 ####[facility] [address] [place], [address] Erythrocyte distribution width (RBC) [Ratio] 14.9 % High 11.6-14.6 [facility] Comment on above: Performed By: #### L 100.0100, L500.2500 ####[facility] [address] [place], [address] Hematocrit (Bld) [Volume fraction] 39.1 % Low 40-54 [facility] Comment on above: Performed By: #### L 100.0100, L500.2500 ####[facility] [address] [place], [address] Hemoglobin (Bld) [Mass/Vol] 12.8 g/dL Low 13.0-16.5 [facility] Comment on above: Performed By: #### L 100.0100, L500.2500 ####[facility] [address] [place], [address] IG% 1.100 High 0.0-0.9 [facility] Comment on above: Result Comment: IG% - Immature Granulocytes (promyelocytes, myelocytes andmetamyelocytes) > 1% indicates that a LEFT SHIFT is Present. Performed By: #### L 100.0100, L500.2500 ####[facility] [address] [place], [address] Lymphocytes/100 WBC (Bld) 16.0 % Low 19-41 [facility] Comment on above: Performed By: #### L 100.0100, L500.2500 ####[facility] [address] [place], [address] MCH (RBC) [Entitic mass] 29.4 pg Normal 27.0-32.0 [facility] Comment on above: Performed By: #### L 100.0100, L500.2500 ####[facility] [address] [place], [address] MCHC (RBC) [Mass/Vol] 32.7 g/dL Normal 32-36 [facility] Comment on above: Performed By: #### L 100.0100, L500.2500 ####[facility] [address] [place], [address] MCV (RBC) [Entitic vol] 89.9 fL Normal 80-94 [facility] Comment on above: Performed By: #### L 100.0100, L500.2500 ####[facility] [address] [place], [address] Monocytes/100 WBC (Bld) 11.0 % High 0-10 [facility] Comment on above: Performed By: #### L 100.0100, L500.2500 ####[facility] [address] [place], [address] Neutrophils/100 WBC (Bld) 70.4 % High 47-70 [facility] Comment on above: Performed By: #### L 100.0100, L500.2500 ####[facility] [address] [place], [address] Nucleated RBC (Bld) [#/Vol] 0 10*3/uL Normal 0-5 [facility] Comment on above: Performed By: #### L 100.0100, L500.2500 ####[facility] [address] [place], [address] Platelet mean volume (Bld) [Entitic vol] 9.5 fL Normal 6.2-12.0 [facility] Comment on above: Performed By: #### L 100.0100, L500.2500 ####[facility] [address] [place], [address] Platelets (Bld) [#/Vol] 390 10*3/uL Normal 150-450 [facility] Comment on above: Performed By: #### L 100.0100, L500.2500 ####[facility] [address] [place], [address] RBC (Bld) [#/Vol] 4.35 10*6/uL Low 4.6-6.2 [facility] Comment on above: Performed By: #### L 100.0100, L500.2500 ####[facility] [address] [place], [address] RDW SD 49.1 fl High 35.1-43.9 [facility] Comment on above: Performed By: #### L 100.0100, L500.2500 ####[facility] [address] [place], [address] WBC (Bld) [#/Vol] 9.9 10*3/uL Normal 4.4-11.0 [facility] Comment on above: Performed By: #### L 100.0100, L500.2500 ####[facility] [address] [place], [address] Extremity Lower WITH Contras ton 11-29-2024 Extremity Lower WITH Contrast Normal [facility] 12 Lead EKGon 11-28-2024 12 Lead EKG Normal [facility] Amylase Body Fluidon 025 AMYLASE,BDY FLD 25 U/L Normal . [facility] Comment on above: Order Comment: Test( s) [id number], Body Fluidwas developed and its performance characteristicsdetermined by [facility]. It has not been cleared or approvedby the Food and Drug Administration. Result Comment: ____ : BODY FLUID TYPE : AMYLASE : : : : : Lymph : 50 - 83 : : : : : Peritoneal : : : Fluid : 88 - 109 : : : : : Saliva : : : (Mixed Glands) : 71052 - 630482 : : : : Alana WTwila V. Reference Intervals for Adults and Children 2008. Ninth Edition (V9.1) [employer], [facility]; [place]: October 2008.Performed at: [address] [id number] Director: Gely Peng MD, Phone: [phone] at: [address] [id number] Director: Higinio Ramon PhD, Phone: [phone] Performed By: #### L 3800.0400, L3800.0050 ####[facility] [address] [place], [address] Basic Metabolic Profile (BMP )on 11-28-2024 BUN/CRE 31.0 RATIO High - [facility] Comment on above: Performed By: #### L 500.2500, L100.0100 ####[facility] [address] [place], [address] Calcium [Mass/Vol] 9.1 mg/dL Normal 7.6-11.0 [facility] Comment on above: Performed By: #### L 500.2500, L100.0100 ####[facility] [address] [place], [address] Chloride [Moles/Vol] 102 mmol/L Normal 98-108 [facility] Comment on above: Performed By: #### L 500.2500, L100.0100 ####[facility] [address] [place], [address] CO2 [Moles/Vol] 19.2 mmol/L Low 21.0-32.0 [facility] Comment on above: Performed By: #### L 500.2500, L100.0100 ####[facility] [address] [place], [address] Creatinine [Mass/Vol] 1.07 mg/dL Normal 0.70-1.20 [facility] Comment on above: Performed By: #### L 500.2500, L100.0100 ####[facility] [address] [place], [address] ECRCL 81.27 ml/min Normal 50-250 [facility] Comment on above: Performed By: #### L 500.2500, L100.0100 ####[facility] [address] [place], [address] GAP 13 Normal 5-15 [facility] Comment on above: Performed By: #### L 500.2500, L100.0100 ####[facility] [address] [place], [address] GFR/1.73 sq M.predicted among non-blacks MDRD (S/P/Bld) [Vol rate/Area] 77 mL/min/{1.73_m2} Normal >60 [facility] Comment on above: Result Comment: mL/m in/1.73m2 CKD-EPI Creatinine Equation (2020) Performed By: #### L 500.2500, L100.0100 ####[facility] [address] [place], [address] Glucose [Mass/Vol] 119 mg/dL High 70-99 [facility] Comment on above: Performed By: #### L 500.2500, L100.0100 ####[facility] [address] [place], [address] Potassium [Moles/Vol] 4.6 mmol/L Normal 3.3-5.1 [facility] Comment on above: Performed By: #### L 500.2500, L100.0100 ####[facility] [address] [place], [address] Sodium [Moles/Vol] 135 mmol/L Normal 133-145 [facility] Comment on above: Performed By: #### L 500.2500, L100.0100 ####[facility] [address] [place], [address] Urea nitrogen [Mass/Vol] 33 mg/dL High 4-19 [facility] Comment on above: Performed By: #### L 500.2500, L100.0100 ####[facility] [address] [place], [address] Bedside Glucoseon 11-28-2024 FINGERSTICK GLU 80 mg/dL Normal 74-106 [facility] Comment on above: Result Comment: SNEHA DUNCAN OF PATIENT CARE PER NURSING PROTOCOL Performed By: #### L 501.080 ####[facility] [address] [place], [address] FINGERSTICK GLU 111 mg/dL High 74-106 [facility] Comment on above: Result Comment: SNEHA GEMENT OF PATIENT CARE PER NURSING PROTOCOL Performed By: #### L 501.080 ####[facility] [address] [place], [address] FINGERSTICK GLU 131 mg/dL High 74-106 [facility] Comment on above: Result Comment: Dr Manjit solis FollowedMANAGEMENT OF PATIENT CARE PER NURSING PROTOCOL Performed By: #### L 501.080 ####[facility] [address] [place], [address] FINGERSTICK GLU 117 mg/dL High 74-106 [facility] Comment on above: Result Comment: SNEHA GEMENT OF PATIENT CARE PER NURSING PROTOCOL Performed By: #### L 501.080 ####[facility] [address] [place], [address] CBC W/Diff, Automatedon 11-05 Absolute Lymph 1.47 X10 3/uL Normal 0.83-4.51 [facility] Comment on above: Performed By: #### L 500.2500, L100.0100 ####[facility] [address] [place], [address] Absolute Neut 5.7 X10 3/uL Normal 2.0-7.7 [facility] Comment on above: Performed By: #### L 500.2500, L100.0100 ####[facility] [address] [place], [address] Basophils/100 WBC (Bld) 0.3 % Normal 0-1 [facility] Comment on above: Performed By: #### L 500.2500, L100.0100 ####[facility] [address] [place], [address] Eosinophils/100 WBC (Bld) 3.0 % Normal 0-5 [facility] Comment on above: Performed By: #### L 500.2500, L100.0100 ####[facility] [address] [place], [address] Erythrocyte distribution width (RBC) [Ratio] 14.8 % High 11.6-14.6 [facility] Comment on above: Performed By: #### L 500.2500, L100.0100 ####[facility] [address] [place], [address] Hematocrit (Bld) [Volume fraction] 40.6 % Normal 40-54 [facility] Comment on above: Performed By: #### L 500.2500, L100.0100 ####[facility] [address] [place], [address] Hemoglobin (Bld) [Mass/Vol] 13.3 g/dL Normal 13.0-16.5 [facility] Comment on above: Performed By: #### L 500.2500, L100.0100 ####[facility] [address] [place], [address] IG% 1.500 High 0.0-0.9 [facility] Comment on above: Result Comment: IG% - Immature Granulocytes (promyelocytes, myelocytes andmetamyelocytes) > 1% indicates that a LEFT SHIFT is Present. Performed By: #### L 500.2500, L100.0100 ####[facility] [address] [place], [address] Lymphocytes/100 WBC (Bld) 17.1 % Low 19-41 [facility] Comment on above: Performed By: #### L 500.2500, L100.0100 ####[facility] [address] [place], [address] MCH (RBC) [Entitic mass] 29.4 pg Normal 27.0-32.0 [facility] Comment on above: Performed By: #### L 500.2500, L100.0100 ####[facility] [address] [place], [address] MCHC (RBC) [Mass/Vol] 32.8 g/dL Normal 32-36 [facility] Comment on above: Performed By: #### L 500.2500, L100.0100 ####[facility] [address] [place], [address] MCV (RBC) [Entitic vol] 89.6 fL Normal 80-94 [facility] Comment on above: Performed By: #### L 500.2500, L100.0100 ####[facility] [address] [place], [address] Monocytes/100 WBC (Bld) 11.9 % High 0-10 [facility] Comment on above: Performed By: #### L 500.2500, L100.0100 ####[facility] [address] [place], [address] Neutrophils/100 WBC (Bld) 66.2 % Normal 47-70 [facility] Comment on above: Performed By: #### L 500.2500, L100.0100 ####[facility] [address] [place], [address] Nucleated RBC (Bld) [#/Vol] 0 10*3/uL Normal 0-5 [facility] Comment on above: Performed By: #### L 500.2500, L100.0100 ####[facility] [address] [place], [address] Platelet mean volume (Bld) [Entitic vol] 9.7 fL Normal 6.2-12.0 [facility] Comment on above: Performed By: #### L 500.2500, L100.0100 ####[facility] [address] [place], [address] Platelets (Bld) [#/Vol] 331 10*3/uL Normal 150-450 [facility] Comment on above: Performed By: #### L 500.2500, L100.0100 ####[facility] [address] [place], [address] RBC (Bld) [#/Vol] 4.53 10*6/uL Low 4.6-6.2 [facility] Comment on above: Performed By: #### L 500.2500, L100.0100 ####[facility] [address] [place], [address] RDW SD 48.9 fl High 35.1-43.9 [facility] Comment on above: Performed By: #### L 500.2500, L100.0100 ####[facility] [address] [place], [address] WBC (Bld) [#/Vol] 8.6 10*3/uL Normal 4.4-11.0 [facility] Comment on above: Performed By: #### L 500.2500, L100.0100 ####[facility] [address] [place], [address] STROKE Brain/Head without Co nton 11-28-2024 STROKE Brain/Head without Cont Normal [facility] STROKE CTA Head AND Neck W/C onon 11-28-2024 STROKE CTA Head AND Neck W/Con Normal [facility] pH, Body Fluid [id number] 11-28 PH, BODY FLUID 7.5 Normal Not Estab. [facility] Comment on above: Order Comment: Test( s) [id number]-[id number], Body Fluidwas developed and its performance characteristicsdetermined by sfilatino. It has not been cleared or approvedby the Food and Drug Administration. Result Comment: The reference interval(s) and other method performance specificationshave not been established for this body fluid. The test result must beintegrated into the clinical context for interpretation. Performed By: #### L 3800.0400, L3800.0050 ####[facility] [address] [place], [address] Basic Metabolic Profile (BMP )on 11-27-2024 BUN/CRE 36.2 RATIO High 10-20 [facility] Comment on above: Performed By: #### L 500.2500 ####[facility] [address] [place], [address] Calcium [Mass/Vol] 8.6 mg/dL Normal 7.6-11.0 [facility] Comment on above: Performed By: #### L 500.2500 ####[facility] [address] [place], [address] Chloride [Moles/Vol] 101 mmol/L Normal 98-108 [facility] Comment on above: Performed By: #### L 500.2500 ####[facility] [address] [place], [address] CO2 [Moles/Vol] 15.3 mmol/L Low 21.0-32.0 [facility] Comment on above: Performed By: #### L 500.2500 ####[facility] [address] [place], [address] Creatinine [Mass/Vol] 1.03 mg/dL Normal 0.70-1.20 [facility] Comment on above: Performed By: #### L 500.2500 ####[facility] [address] [place], [address] ECRCL 84.42 ml/min Normal 50-250 [facility] Comment on above: Performed By: #### L 500.2500 ####[facility] [address] [place], [address] GAP 13 Normal 5-15 [facility] Comment on above: Performed By: #### L 500.2500 ####[facility] [address] [place], [address] GFR/1.73 sq M.predicted among non-blacks MDRD (S/P/Bld) [Vol rate/Area] 81 mL/min/{1.73_m2} Normal >60 [facility] Comment on above: Result Comment: mL/m in/1.73m2 CKD-EPI Creatinine Equation (2020) Performed By: #### L 500.2500 ####[facility] [address] [place], [address] Glucose [Mass/Vol] 176 mg/dL High 70-99 [facility] Comment on above: Performed By: #### L 500.2500 ####[facility] [address] [place], [address] Potassium [Moles/Vol] 4.5 mmol/L Normal 3.3-5.1 [facility] Comment on above: Performed By: #### L 500.2500 ####[facility] [address] [place], [address] Sodium [Moles/Vol] 130 mmol/L Low 133-145 [facility] Comment on above: Performed By: #### L 500.2500 ####[facility] [address] [place], [address] Urea nitrogen [Mass/Vol] 37 mg/dL High 4-19 [facility] Comment on above: Performed By: #### L 500.2500 ####[facility] [address] [place], [address] BUN Normal 4-19 [facility] Comment on above: Result Comment: This specimen has been REJECTED due to Laboratory criteria:Hemolyzed.TDEVEREAU has been notified of need of recollection.11/27/24 0355 Manuel Es Performed By: #### L 500.2500, L100.0100 ####[facility] [address] [place], [address] BUN/CRE Normal 10-20 [facility] Comment on above: Result Comment: This specimen has been REJECTED due to Laboratory criteria:Hemolyzed.TDEVEREAU has been notified of need of recollection.11/27/24 0355 Manuel Es Performed By: #### L 500.2500, L100.0100 ####[facility] [address] [place], [address] Calcium Normal 7.6-11.0 [facility] Comment on above: Result Comment: This specimen has been REJECTED due to Laboratory criteria:Hemolyzed.TDEVEREAU has been notified of need of recollection.11/27/24 0355 Manuel Es Performed By: #### L 500.2500, L100.0100 ####[facility] [address] [place], [address] CL Normal 98-108 [facility] Comment on above: Result Comment: This specimen has been REJECTED due to Laboratory criteria:Hemolyzed.TDEVEREAU has been notified of need of recollection.11/27/245 Manuel Es Performed By: #### L 500.2500, L100.0100 ####[facility] [address] [place], [address] CO2 Normal 21.0-32.0 [facility] Comment on above: Result Comment: This specimen has been REJECTED due to Laboratory criteria:Hemolyzed.TDEVEREAU has been notified of need of recollection.11/27/245 Manuel Es Performed By: #### L 500.2500, L100.0100 ####[facility] [address] [place], [address] CREAT,SERUM Normal 0.70-1.20 [facility] Comment on above: Result Comment: This specimen has been REJECTED due to Laboratory criteria:Hemolyzed.TDEVEREAU has been notified of need of recollection.11/27/24 0355 Manuel Lawrence Performed By: #### L 500.2500, L100.0100 ####[facility] [address] [place], [address] eGFR Normal >60 [facility] Comment on above: Result Comment: This specimen has been REJECTED due to Laboratory criteria:Hemolyzed.TDEVEREAU has been notified of need of recollection.11/27/24354 Manuel Es Performed By: #### L 500.2500, L100.0100 ####[facility] [address] [place], [address] GAP Normal 5-15 [facility] Comment on above: Result Comment: This specimen has been REJECTED due to Laboratory criteria:Hemolyzed.TDEVEREAU has been notified of need of recollection.11/27/24354 Manuel Lawrence Performed By: #### L 500.2500, L100.0100 ####[facility] [address] [place], [address] GLU Normal 70-99 [facility] Comment on above: Result Comment: This specimen has been REJECTED due to Laboratory criteria:Hemolyzed.TDEVEREAU has been notified of need of recollection.11/27/24354 Manuel Es Performed By: #### L 500.2500, L100.0100 ####[facility] [address] [place], [address] Potassium Normal 3.3-5.1 [facility] Comment on above: Result Comment: This specimen has been REJECTED due to Laboratory criteria:Hemolyzed.TDEVEREAU has been notified of need of recollection.11/27/24354 Manuel Lawrence Performed By: #### L 500.2500, L100.0100 ####[facility] [address] [place], [address] Basic Metabolic Profile (BMP) Normal 133-145 [facility] Comment on above: Result Comment: This specimen has been REJECTED due to Laboratory criteria:Hemolyzed.TDEVEREAU has been notified of need of recollection.11/27/24354 Manuel Lawrence Performed By: #### L 500.2500, L100.0100 ####[facility] [address] [place], [address] Bedside Glucoseon 11-27-2024 FINGERSTICK GLU 151 mg/dL High 74-106 [facility] Comment on above: Result Comment: SNEHA GEMENT OF PATIENT CARE PER NURSING PROTOCOL Performed By: #### L 501.080 ####[facility] [address] [place], [address] FINGERSTICK GLU 198 mg/dL High 74-106 [facility] Comment on above: Result Comment: SNEHA GEMENT OF PATIENT CARE PER NURSING PROTOCOL Performed By: #### L 501.080 ####[facility] [address] [place], [address] FINGERSTICK GLU 149 mg/dL High 74-106 [facility] Comment on above: Result Comment: SNEHA GEMENT OF PATIENT CARE PER NURSING PROTOCOL Performed By: #### L 501.080 ####[facility] [address] [place], [address] FINGERSTICK GLU 175 mg/dL High 74-106 [facility] Comment on above: Result Comment: SNEHA GEMENT OF PATIENT CARE PER NURSING PROTOCOL Performed By: #### L 501.080 ####[facility] [address] [place], [address] CBC W/Diff, Automatedon 08-2 Absolute Lymph 1.10 X10 3/uL Normal 0.83-4.51 [facility] Comment on above: Performed By: #### L 500.2500, L100.0100 ####[facility] [address] [place], [address] Absolute Neut 8.0 X10 3/uL High 2.0-7.7 [facility] Comment on above: Performed By: #### L 500.2500, L100.0100 ####[facility] [address] [place], [address] Basophils/100 WBC (Bld) 0.2 % Normal 0-1 [facility] Comment on above: Performed By: #### L 500.2500, L100.0100 ####[facility] [address] [place], [address] Eosinophils/100 WBC (Bld) 2.4 % Normal 0-5 [facility] Comment on above: Performed By: #### L 500.2500, L100.0100 ####[facility] [address] [place], [address] Erythrocyte distribution width (RBC) [Ratio] 14.7 % High 11.6-14.6 [facility] Comment on above: Performed By: #### L 500.2500, L100.0100 ####[facility] [address] [place], [address] Hematocrit (Bld) [Volume fraction] 38.7 % Low 40-54 [facility] Comment on above: Performed By: #### L 500.2500, L100.0100 ####[facility] [address] [place], [address] Hemoglobin (Bld) [Mass/Vol] 12.9 g/dL Low 13.0-16.5 [facility] Comment on above: Performed By: #### L 500.2500, L100.0100 ####[facility] [address] [place], [address] IG% 1.000 High 0.0-0.9 [facility] Comment on above: Result Comment: IG% - Immature Granulocytes (promyelocytes, myelocytes andmetamyelocytes) > 1% indicates that a LEFT SHIFT is Present. Performed By: #### L 500.2500, L100.0100 ####[facility] [address] [place], [address] Lymphocytes/100 WBC (Bld) 10.5 % Low 19-41 [facility] Comment on above: Performed By: #### L 500.2500, L100.0100 ####[facility] [address] [place], [address] MCH (RBC) [Entitic mass] 29.9 pg Normal 27.0-32.0 [facility] Comment on above: Performed By: #### L 500.2500, L100.0100 ####[facility] [address] [place], [address] MCHC (RBC) [Mass/Vol] 33.3 g/dL Normal 32-36 [facility] Comment on above: Performed By: #### L 500.2500, L100.0100 ####[facility] [address] [place], [address] MCV (RBC) [Entitic vol] 89.8 fL Normal 80-94 [facility] Comment on above: Performed By: #### L 500.2500, L100.0100 ####[facility] [address] [place], [address] Monocytes/100 WBC (Bld) 10.2 % High 0-10 [facility] Comment on above: Performed By: #### L 500.2500, L100.0100 ####[facility] [address] [place], [address] Neutrophils/100 WBC (Bld) 75.7 % High 47-70 [facility] Comment on above: Performed By: #### L 500.2500, L100.0100 ####[facility] [address] [place], [address] Nucleated RBC (Bld) [#/Vol] 0 10*3/uL Normal 0-5 [facility] Comment on above: Performed By: #### L 500.2500, L100.0100 ####[facility] [address] [place], [address] Platelet mean volume (Bld) [Entitic vol] 9.8 fL Normal 6.2-12.0 [facility] Comment on above: Performed By: #### L 500.2500, L100.0100 ####[facility] [address] [place], [address] Platelets (Bld) [#/Vol] 278 10*3/uL Normal 150-450 [facility] Comment on above: Performed By: #### L 500.2500, L100.0100 ####[facility] [address] [place], [address] RBC (Bld) [#/Vol] 4.31 10*6/uL Low 4.6-6.2 [facility] Comment on above: Performed By: #### L 500.2500, L100.0100 ####[facility] [address] [place], [address] RDW SD 47.9 fl High 35.1-43.9 [facility] Comment on above: Performed By: #### L 500.2500, L100.0100 ####[facility] [address] [place], [address] WBC (Bld) [#/Vol] 10.5 10*3/uL Normal 4.4-11.0 [facility] Comment on above: Performed By: #### L 500.2500, L100.0100 ####[facility] [address] [place], [address] Culture, Blood (WB)on 2024 CUB Blood cultures x2, f rom two different sites No growth in 5 days. Normal [facility] Comment on above: Performed By: #### M 200.1000 ####[facility] [address] [place], [address] CUB Blood cultures x2, f rom two different sites No growth in 5 days. Normal [facility] Comment on above: Performed By: #### L 100.0100, L500.4050, L300.3900, M200.1000, L503.6005, L300.4310 ####[facility] [address] [place], [address] Vancomycin, Trough Levelon 0 11-27-2024 VANCO, TROUGH 17.8 ug/mL High 5.0-15.0 [facility] Comment on above: Order Comment: 2300 Result [...] therapy recommended for serious lifethreatening infections include:- Gbzwdgwugm-Clumroamnxqx-Qcnehjoxw (Ventilator/Healtcare Associated)-SepsisPLEASE CONTACT PHARMACY SERVICES (#6632) FOR INTERPRETATIONOF RESULTS. Performed By: #### L 501.8820 ####[facility] [address] [place], [address] Basic Metabolic Profile (BMP )on 11-26-2024 BUN/CRE 37.1 RATIO High 10-20 [facility] Comment on above: Performed By: #### L 500.2500, L100.0100 ####[facility] [address] [place], [address] Calcium [Mass/Vol] 8.8 mg/dL Normal 7.6-11.0 [facility] Comment on above: Performed By: #### L 500.2500, L100.0100 ####[facility] [address] [place], [address] Chloride [Moles/Vol] 99 mmol/L Normal 98-108 [facility] Comment on above: Performed By: #### L 500.2500, L100.0100 ####[facility] [address] [place], [address] CO2 [Moles/Vol] 18.3 mmol/L Low 21.0-32.0 [facility] Comment on above: Performed By: #### L 500.2500, L100.0100 ####[facility] [address] [place], [address] Creatinine [Mass/Vol] 1.24 mg/dL High 0.70-1.20 [facility] Comment on above: Performed By: #### L 500.2500, L100.0100 ####[facility] [address] [place], [address] ECRCL 70.13 ml/min Normal 50-250 [facility] Comment on above: Performed By: #### L 500.2500, L100.0100 ####[facility] [address] [place], [address] GAP 16 High 5-15 [facility] Comment on above: Performed By: #### L 500.2500, L100.0100 ####[facility] [address] [place], [address] GFR/1.73 sq M.predicted among non-blacks MDRD (S/P/Bld) [Vol rate/Area] 65 mL/min/{1.73_m2} Normal >60 [facility] Comment on above: Result Comment: mL/m in/1.73m2 CKD-EPI Creatinine Equation (2020) Performed By: #### L 500.2500, L100.0100 ####[facility] [address] [place], [address] Glucose [Mass/Vol] 147 mg/dL High 70-99 [facility] Comment on above: Performed By: #### L 500.2500, L100.0100 ####[facility] [address] [place], [address] Potassium [Moles/Vol] 4.2 mmol/L Normal 3.3-5.1 [facility] Comment on above: Performed By: #### L 500.2500, L100.0100 ####[facility] [address] [place], [address] Sodium [Moles/Vol] 134 mmol/L Normal 133-145 [facility] Comment on above: Performed By: #### L 500.2500, L100.0100 ####[facility] [address] [place], [address] Urea nitrogen [Mass/Vol] 46 mg/dL High 4-19 [facility] Comment on above: Performed By: #### L 500.2500, L100.0100 ####[facility] [address] [place], [address] Bedside Glucoseon 11-26-2024 FINGERSTICK GLU 186 mg/dL High 74-106 [facility] Comment on above: Result Comment: SNEHA GEMENT OF PATIENT CARE PER NURSING PROTOCOL Performed By: #### L 501.080 ####[facility] [address] [place], [address] FINGERSTICK GLU 192 mg/dL High 74-106 [facility] Comment on above: Result Comment: SNEHA GEMENT OF PATIENT CARE PER NURSING PROTOCOL Performed By: #### L 501.080 ####[facility] [address] [place], [address] FINGERSTICK GLU 146 mg/dL High 74-106 [facility] Comment on above: Result Comment: SNEHA GEMENT OF PATIENT CARE PER NURSING PROTOCOL Performed By: #### L 501.080 ####[facility] [address] [place], [address] FINGERSTICK GLU 233 mg/dL High 74-106 [facility] Comment on above: Result Comment: SNEHA GEMENT OF PATIENT CARE PER NURSING PROTOCOL Performed By: #### L 501.080 ####[facility] [address] [place], [address] Body Fluid Culton 11-26-2024 BFC Culture exhibits no growth. Normal [facility] Comment on above: Performed By: #### M 100.4001, M100.2000, L350.1000, L200.0200, L503.0100, M100.2900, L504.0250, L503.0300 ####[facility] [address] [place], [address] CBC W/Diff, Automatedon 11-05 Absolute Lymph 1.13 X10 3/uL Normal 0.83-4.51 [facility] Comment on above: Performed By: #### L 500.2500, L100.0100 ####[facility] [address] [place], [address] Absolute Neut 7.5 X10 3/uL Normal 2.0-7.7 [facility] Comment on above: Performed By: #### L 500.2500, L100.0100 ####[facility] [address] [place], [address] Basophils/100 WBC (Bld) 0.2 % Normal 0-1 [facility] Comment on above: Performed By: #### L 500.2500, L100.0100 ####[facility] [address] [place], [address] Eosinophils/100 WBC (Bld) 1.2 % Normal 0-5 [facility] Comment on above: Performed By: #### L 500.2500, L100.0100 ####[facility] [address] [place], [address] Erythrocyte distribution width (RBC) [Ratio] 14.6 % Normal 11.6-14.6 [facility] Comment on above: Performed By: #### L 500.2500, L100.0100 ####[facility] [address] [place], [address] Hematocrit (Bld) [Volume fraction] 42.5 % Normal 40-54 [facility] Comment on above: Performed By: #### L 500.2500, L100.0100 ####[facility] [address] [place], [address] Hemoglobin (Bld) [Mass/Vol] 13.9 g/dL Normal 13.0-16.5 [facility] Comment on above: Performed By: #### L 500.2500, L100.0100 ####[facility] [address] [place], [address] IG% 0.500 Normal 0.0-0.9 [facility] Comment on above: Result Comment: IG% - Immature Granulocytes (promyelocytes, myelocytes andmetamyelocytes) > 1% indicates that a LEFT SHIFT is Present. Performed By: #### L 500.2500, L100.0100 ####[facility] [address] [place], [address] Lymphocytes/100 WBC (Bld) 11.7 % Low 19-41 [facility] Comment on above: Performed By: #### L 500.2500, L100.0100 ####[facility] [address] [place], [address] MCH (RBC) [Entitic mass] 29.6 pg Normal 27.0-32.0 [facility] Comment on above: Performed By: #### L 500.2500, L100.0100 ####[facility] [address] [place], [address] MCHC (RBC) [Mass/Vol] 32.7 g/dL Normal 32-36 [facility] Comment on above: Performed By: #### L 500.2500, L100.0100 ####[facility] [address] [place], [address] MCV (RBC) [Entitic vol] 90.4 fL Normal 80-94 [facility] Comment on above: Performed By: #### L 500.2500, L100.0100 ####[facility] [address] [place], [address] Monocytes/100 WBC (Bld) 9.0 % Normal 0-10 [facility] Comment on above: Performed By: #### L 500.2500, L100.0100 ####[facility] [address] [place], [address] Neutrophils/100 WBC (Bld) 77.4 % High 47-70 [facility] Comment on above: Performed By: #### L 500.2500, L100.0100 ####[facility] [address] [place], [address] Nucleated RBC (Bld) [#/Vol] 0 10*3/uL Normal 0-5 [facility] Comment on above: Performed By: #### L 500.2500, L100.0100 ####[facility] [address] [place], [address] Platelet mean volume (Bld) [Entitic vol] 9.6 fL Normal 6.2-12.0 [facility] Comment on above: Performed By: #### L 500.2500, L100.0100 ####[facility] [address] [place], [address] Platelets (Bld) [#/Vol] 296 10*3/uL Normal 150-450 [facility] Comment on above: Performed By: #### L 500.2500, L100.0100 ####[facility] [address] [place], [address] RBC (Bld) [#/Vol] 4.70 10*6/uL Normal 4.6-6.2 [facility] Comment on above: Performed By: #### L 500.2500, L100.0100 ####[facility] [address] [place], [address] RDW SD 48.3 fl High 35.1-43.9 [facility] Comment on above: Performed By: #### L 500.2500, L100.0100 ####[facility] [address] [place], [address] WBC (Bld) [#/Vol] 9.7 10*3/uL Normal 4.4-11.0 [facility] Comment on above: Performed By: #### L 500.2500, L100.0100 ####[facility] [address] [place], [address] Culture, Anaerobic Any Sourc sandra 11-26-2024 CUAN No anaerobic bacteri a isolated. Normal [facility] Comment on above: Performed By: #### M 100.4001, M100.2000, L350.1000, L200.0200, L503.0100, M100.2900, L504.0250, L503.0300 ####[facility] [address] [place], [address] Vancomycin, Random Levelon 0 11-26-2024 VANCO, RANDOM 17.5 ug/mL High 0.0-15.0 [facility] Comment on above: Result Comment: VANC OMYCIN STANDARD DRUG THERAPY: CRITICAL VALUE IS > 15.0 mg/LVANCOMYCIN HIGH INTENSITY THERAPY: CRITICAL VALUE IS > 20.0 mg/LPLEASE CONTACT PHARMACY SERVICES (#8921) FOR INTERPRETATIONOF RESULTS. THIS RESULT DOES NOT REPRESENT A PEAK OR TROUGHLEVEL FOR THIS DRUG. Performed By: #### L 501.8850 ####[facility] [address] [place], [address] Vancomycin, Trough Levelon 0 11-26-2024 VANCO, TROUGH 23.1 ug/mL High 5.0-15.0 [facility] Comment on above: Order Comment: Comme nts: [...] therapy recommended for serious lifethreatening infections include:- Fqkdzxivmb-Kjsdmwsppiuo-Mftbdlzbp (Ventilator/Healtcare Associated)-SepsisPLEASE CONTACT PHARMACY SERVICES (#1980) FOR INTERPRETATIONOF RESULTS. Performed By: #### L 501.8820 ####[facility] [address] [place], [address] Wound Cultureon 11-26-2024 WC Normal [facility] Comment on above: Performed By: #### M 100.2000, M100.3000 ####[facility] [address] [place], [address] Basic Metabolic Profile (BMP )on 11-25-2024 BUN/CRE 40.9 RATIO High 10-20 [facility] Comment on above: Performed By: #### L 500.2500, L100.0100 ####[facility] [address] [place], [address] Calcium [Mass/Vol] 8.7 mg/dL Normal 7.6-11.0 [facility] Comment on above: Performed By: #### L 500.2500, L100.0100 ####[facility] [address] [place], [address] Chloride [Moles/Vol] 98 mmol/L Normal 98-108 [facility] Comment on above: Performed By: #### L 500.2500, L100.0100 ####[facility] [address] [place], [address] CO2 [Moles/Vol] 17.8 mmol/L Low 21.0-32.0 [facility] Comment on above: Performed By: #### L 500.2500, L100.0100 ####[facility] [address] [place], [address] Creatinine [Mass/Vol] 1.14 mg/dL Normal 0.70-1.20 [facility] Comment on above: Performed By: #### L 500.2500, L100.0100 ####[facility] [address] [place], [address] ECRCL 77.02 ml/min Normal 50-250 [facility] Comment on above: Performed By: #### L 500.2500, L100.0100 ####[facility] [address] [place], [address] GAP 16 High 5-15 [facility] Comment on above: Performed By: #### L 500.2500, L100.0100 ####[facility] [address] [place], [address] GFR/1.73 sq M.predicted among non-blacks MDRD (S/P/Bld) [Vol rate/Area] 72 mL/min/{1.73_m2} Normal >60 [facility] Comment on above: Result Comment: mL/m in/1.73m2 CKD-EPI Creatinine Equation (2020) Performed By: #### L 500.2500, L100.0100 ####[facility] [address] [place], [address] Glucose [Mass/Vol] 193 mg/dL High 70-99 [facility] Comment on above: Performed By: #### L 500.2500, L100.0100 ####[facility] [address] [place], [address] Potassium [Moles/Vol] 4.0 mmol/L Normal 3.3-5.1 [facility] Comment on above: Performed By: #### L 500.2500, L100.0100 ####[facility] [address] [place], [address] Sodium [Moles/Vol] 131 mmol/L Low 133-145 [facility] Comment on above: Performed By: #### L 500.2500, L100.0100 ####[facility] [address] [place], [address] Urea nitrogen [Mass/Vol] 47 mg/dL High 4-19 [facility] Comment on above: Performed By: #### L 500.2500, L100.0100 ####[facility] [address] [place], [address] Bedside Glucoseon 11-25-2024 FINGERSTICK GLU 174 mg/dL High 74-106 [facility] Comment on above: Result Comment: SNEHA GEMENT OF PATIENT CARE PER NURSING PROTOCOL Performed By: #### L 501.080 ####[facility] [address] [place], [address] FINGERSTICK GLU 202 mg/dL High 74-106 [facility] Comment on above: Result Comment: SNEHA GEMENT OF PATIENT CARE PER NURSING PROTOCOL Performed By: #### L 501.080 ####[facility] [address] [place], [address] FINGERSTICK GLU 183 mg/dL High 74-106 [facility] Comment on above: Result Comment: SNHEA GEMENT OF PATIENT CARE PER NURSING PROTOCOL Performed By: #### L 501.080 ####[facility] [address] [place], [address] FINGERSTICK GLU 189 mg/dL High 74-106 [facility] Comment on above: Result Comment: SNEHA GEMENT OF PATIENT CARE PER NURSING PROTOCOL Performed By: #### L 501.080 ####[facility] [address] [place], [address] FINGERSTICK GLU 182 mg/dL High 74-106 [facility] Comment on above: Result Comment: SNEHA DUNCAN OF PATIENT CARE PER NURSING PROTOCOL Performed By: #### L 501.080 ####[facility] [address] [place], [address] CBC W/Diff, Automatedon 08- Absolute Lymph 1.51 X10 3/uL Normal 0.83-4.51 [facility] Comment on above: Performed By: #### L 500.2500, L100.0100 ####[facility] [address] [place], [address] Absolute Neut 13.8 X10 3/uL High 2.0-7.7 [facility] Comment on above: Performed By: #### L 500.2500, L100.0100 ####[facility] [address] [place], [address] Basophils/100 WBC (Bld) 0.3 % Normal 0-1 [facility] Comment on above: Performed By: #### L 500.2500, L100.0100 ####[facility] [address] [place], [address] Eosinophils/100 WBC (Bld) 0.8 % Normal 0-5 [facility] Comment on above: Performed By: #### L 500.2500, L100.0100 ####[facility] [address] [place], [address] Erythrocyte distribution width (RBC) [Ratio] 14.6 % Normal 11.6-14.6 [facility] Comment on above: Performed By: #### L 500.2500, L100.0100 ####[facility] [address] [place], [address] Hematocrit (Bld) [Volume fraction] 39.8 % Low 40-54 [facility] Comment on above: Performed By: #### L 500.2500, L100.0100 ####[facility] [address] [place], [address] Hemoglobin (Bld) [Mass/Vol] 13.4 g/dL Normal 13.0-16.5 [facility] Comment on above: Performed By: #### L 500.2500, L100.0100 ####[facility] [address] [place], [address] IG% 0.500 Normal 0.0-0.9 [facility] Comment on above: Result Comment: IG% - Immature Granulocytes (promyelocytes, myelocytes andmetamyelocytes) > 1% indicates that a LEFT SHIFT is Present. Performed By: #### L 500.2500, L100.0100 ####[facility] [address] [place], [address] Lymphocytes/100 WBC (Bld) 9.2 % Low 19-41 [facility] Comment on above: Performed By: #### L 500.2500, L100.0100 ####[facility] [address] [place], [address] MCH (RBC) [Entitic mass] 29.9 pg Normal 27.0-32.0 [facility] Comment on above: Performed By: #### L 500.2500, L100.0100 ####[facility] [address] [place], [address] MCHC (RBC) [Mass/Vol] 33.7 g/dL Normal 32-36 [facility] Comment on above: Performed By: #### L 500.2500, L100.0100 ####[facility] [address] [place], [address] MCV (RBC) [Entitic vol] 88.8 fL Normal 80-94 [facility] Comment on above: Performed By: #### L 500.2500, L100.0100 ####[facility] [address] [place], [address] Monocytes/100 WBC (Bld) 5.4 % Normal 0-10 [facility] Comment on above: Performed By: #### L 500.2500, L100.0100 ####[facility] [address] [place], [address] Neutrophils/100 WBC (Bld) 83.8 % High 47-70 [facility] Comment on above: Performed By: #### L 500.2500, L100.0100 ####[facility] [address] [place], [address] Nucleated RBC (Bld) [#/Vol] 0 10*3/uL Normal 0-5 [facility] Comment on above: Performed By: #### L 500.2500, L100.0100 ####[facility] [address] [place], [address] Platelet mean volume (Bld) [Entitic vol] 9.6 fL Normal 6.2-12.0 [facility] Comment on above: Performed By: #### L 500.2500, L100.0100 ####[facility] [address] [place], [address] Platelets (Bld) [#/Vol] 403 10*3/uL Normal 150-450 [facility] Comment on above: Performed By: #### L 500.2500, L100.0100 ####[facility] [address] [place], [address] RBC (Bld) [#/Vol] 4.48 10*6/uL Low 4.6-6.2 [facility] Comment on above: Performed By: #### L 500.2500, L100.0100 ####[facility] [address] [place], [address] RDW SD 46.3 fl High 35.1-43.9 [facility] Comment on above: Performed By: #### L 500.2500, L100.0100 ####[facility] [address] [place], [address] WBC (Bld) [#/Vol] 16.4 10*3/uL High 4.4-11.0 [facility] Comment on above: Performed By: #### L 500.2500, L100.0100 ####[facility] [address] [place], [address] Gram Stainon 11-25-2024 GS Centrifuged Specimen ? Culture performed on centrifuged specimen Gram Stain No organisms seen 1+ White Blood Cells Normal [facility] Comment on above: Performed By: #### M 100.4001, M100.2000, L350.1000, L200.0200, L503.0100, M100.2900, L504.0250, L503.0300 ####[facility] [address] [place], [address] Basic Metabolic Profile (BMP )on 11-24-2024 BUN/CRE 30.2 RATIO High 10-20 [facility] Comment on above: Performed By: #### L 100.0100, L500.2500 ####[facility] [address] [place], [address] Calcium [Mass/Vol] 8.7 mg/dL Normal 7.6-11.0 [facility] Comment on above: Performed By: #### L 100.0100, L500.2500 ####[facility] [address] [place], [address] Chloride [Moles/Vol] 100 mmol/L Normal 98-108 [facility] Comment on above: Performed By: #### L 100.0100, L500.2500 ####[facility] [address] [place], [address] CO2 [Moles/Vol] 20.0 mmol/L Low 21.0-32.0 [facility] Comment on above: Performed By: #### L 100.0100, L500.2500 ####[facility] [address] [place], [address] Creatinine [Mass/Vol] 1.25 mg/dL High 0.70-1.20 [facility] Comment on above: Performed By: #### L 100.0100, L500.2500 ####[facility] [address] [place], [address] ECRCL 70.24 ml/min Normal 50-250 [facility] Comment on above: Performed By: #### L 100.0100, L500.2500 ####[facility] [address] [place], [address] GAP 14 Normal 5-15 [facility] Comment on above: Performed By: #### L 100.0100, L500.2500 ####[facility] [address] [place], [address] GFR/1.73 sq M.predicted among non-blacks MDRD (S/P/Bld) [Vol rate/Area] 64 mL/min/{1.73_m2} Normal >60 [facility] Comment on above: Result Comment: mL/m in/1.73m2 CKD-EPI Creatinine Equation (2020) Performed By: #### L 100.0100, L500.2500 ####[facility] [address] [place], [address] Glucose [Mass/Vol] 138 mg/dL High 70-99 [facility] Comment on above: Performed By: #### L 100.0100, L500.2500 ####[facility] [address] [place], [address] Potassium [Moles/Vol] 4.1 mmol/L Normal 3.3-5.1 [facility] Comment on above: Performed By: #### L 100.0100, L500.2500 ####[facility] [address] [place], [address] Sodium [Moles/Vol] 134 mmol/L Normal 133-145 [facility] Comment on above: Performed By: #### L 100.0100, L500.2500 ####[facility] [address] [place], [address] Urea nitrogen [Mass/Vol] 38 mg/dL High 4-19 [facility] Comment on above: Performed By: #### L 100.0100, L500.2500 ####[facility] [address] [place], [address] Bedside Glucoseon 11-24-2024 FINGERSTICK GLU 238 mg/dL High 74-106 [facility] Comment on above: Result Comment: SNEHA GEMENT OF PATIENT CARE PER NURSING PROTOCOL Performed By: #### L 501.080 ####[facility] [address] [place], [address] FINGERSTICK GLU 179 mg/dL High 74-106 [facility] Comment on above: Result Comment: SNEHA GEMENT OF PATIENT CARE PER NURSING PROTOCOL Performed By: #### L 501.080 ####[facility] [address] [place], [address] FINGERSTICK GLU 182 mg/dL High 74-106 [facility] Comment on above: Result Comment: SNEHA GEMENT OF PATIENT CARE PER NURSING PROTOCOL Performed By: #### L 501.080 ####[facility] [address] [place], [address] FINGERSTICK GLU 118 mg/dL High 74-106 [facility] Comment on above: Result Comment: SNEHA GEMENT OF PATIENT CARE PER NURSING PROTOCOL Performed By: #### L 501.080 ####[facility] [address] [place], [address] Body Fluid Cell Count+Diffon 11-24-2024 PATH COMM/BF Reviewed Normal [facility] Comment on above: Order Comment: The r [...] M100.2000, L350.1000, L200.0200, L503.0100, M100.2900, L504.0250, L503.0300 ####[facility] [address] [place], [address] CBC W/Diff, Automatedon 11-05 SMEAR COMMENT SCANNED Normal [facility] Comment on above: Result Comment: LEFT SHIFT: BANDS PRESENT 2+ Performed By: #### L 100.0100, L500.2500 ####[facility] [address] [place], [address] Chest 1 View (Portable)on Chest 1 View (Portable) Normal [facility] Cytology, Body Fluid / CSFon 11-24-2024 CYTOLOGY,BF/CSF SEE PATHOLOGY REPORT Normal [facility] Comment on above: Result Comment: Spec imen submitted to Anatomical Pathology Department fortesting. Performed By: #### M 100.4001, M100.2000, L350.1000, L200.0200, L503.0100, M100.2900, L504.0250, L503.0300 ####[facility] [address] [place], [address] Glucose, Body Fluidon 2024 GLUC, BODY FLD 172 mg/dL Normal Not Establ. [facility] Comment on above: Performed By: #### M 100.4001, M100.2000, L350.1000, L200.0200, L503.0100, M100.2900, L504.0250, L503.0300 ####[facility] [address] [place], [address] LDH,Body Fluidon 11-24-2024 LDH,BF 78 Units/L Normal Not Establ. [facility] Comment on above: Performed By: #### M 100.4001, M100.2000, L350.1000, L200.0200, L503.0100, M100.2900, L504.0250, L503.0300 ####[facility] [address] [place], [address] Protein, Body Fluidon 2024 Protein [Mass/Vol] 2.3 g/dL Normal Not Establ. [facility] Comment on above: Performed By: #### M 100.4001, M100.2000, L350.1000, L200.0200, L503.0100, M100.2900, L504.0250, L503.0300 ####[facility] [address] [place], [address] Special Stain Group IIon Special Stain Group II Normal [facility] Comment on above: Performed By: #### P SSII ####[facility] [address] [place], [address] Thoracentesis W USon 025 Thoracentesis W US Normal [facility] Vancomycin, Random Levelon 0 11-24-2024 VANCO, RANDOM 16.0 ug/mL High 0.0-15.0 [facility] Comment on above: Result Comment: VANC OMYCIN STANDARD DRUG THERAPY: CRITICAL VALUE IS > 15.0 mg/LVANCOMYCIN HIGH INTENSITY THERAPY: CRITICAL VALUE IS > 20.0 mg/LPLEASE CONTACT PHARMACY SERVICES (#2918) FOR INTERPRETATIONOF RESULTS. THIS RESULT DOES NOT REPRESENT A PEAK OR TROUGHLEVEL FOR THIS DRUG. Performed By: #### L 501.8850 ####[facility] [address] [place], [address] Vancomycin, Trough Levelon 0 11-24-2024 VANCO, TROUGH 20.8 ug/mL High 5.0-15.0 [facility] Comment on above: Order Comment: Comme nts: [...] therapy recommended for serious lifethreatening infections include:- Giuctwzupp-Bccvslybdmmy-Kxghegjmf (Ventilator/Healtcare Associated)-SepsisPLEASE CONTACT PHARMACY SERVICES (#5196) FOR INTERPRETATIONOF RESULTS. Performed By: #### L 501.8820 ####[facility] [address] [place], [place], [phone] Basic Metabolic Profile (BMP )on 11-23-2024 BUN/CRE 25.6 RATIO High 01-23 [facility] Comment on above: Performed By: #### L 504.2610, L501.9520, L500.4100, L001.0705, L100.0100, L500.2500 ####[facility] [address], [address] Calcium [Mass/Vol] 8.8 mg/dL Normal 7.6-11.0 [facility] Comment on above: Performed By: #### L 504.2610, L501.9520, L500.4100, L001.0705, L100.0100, L500.2500 ####[facility] [address] [place], [address] Chloride [Moles/Vol] 102 mmol/L Normal 98-108 [facility] Comment on above: Performed By: #### L 504.2610, L501.9520, L500.4100, L001.0705, L100.0100, L500.2500 ####[facility] [address] [place], [address] CO2 [Moles/Vol] 16.8 mmol/L Low 21.0-32.0 [facility] Comment on above: Performed By: #### L 504.2610, L501.9520, L500.4100, L001.0705, L100.0100, L500.2500 ####[facility] [address] [place], [address] Creatinine [Mass/Vol] 1.40 mg/dL High 0.70-1.20 [facility] Comment on above: Performed By: #### L 504.2610, L501.9520, L500.4100, L001.0705, L100.0100, L500.2500 ####[facility] [address] [place], [address] ECRCL 62.72 ml/min Normal 50-250 [facility] Comment on above: Performed By: #### L 504.2610, L501.9520, L500.4100, L001.0705, L100.0100, L500.2500 ####[facility] [address] [place], [address] GAP 18 High 5-15 [facility] Comment on above: Performed By: #### L 504.2610, L501.9520, L500.4100, L001.0705, L100.0100, L500.2500 ####[facility] [address] [place], [address] GFR/1.73 sq M.predicted among non-blacks MDRD (S/P/Bld) [Vol rate/Area] 56 mL/min/{1.73_m2} Low >60 [facility] Comment on above: Result Comment: mL/m in/1.73m2 CKD-EPI Creatinine Equation (2020) Performed By: #### L 504.2610, L501.9520, L500.4100, L001.0705, L100.0100, L500.2500 ####[facility] [address] [place], [address] Glucose [Mass/Vol] 195 mg/dL High 70-99 [facility] Comment on above: Performed By: #### L 504.2610, L501.9520, L500.4100, L001.0705, L100.0100, L500.2500 ####[facility] [address] [place], [address] Potassium [Moles/Vol] 4.2 mmol/L Normal 3.3-5.1 [facility] Comment on above: Performed By: #### L 504.2610, L501.9520, L500.4100, L001.0705, L100.0100, L500.2500 ####[facility] [address] [place], [address] Sodium [Moles/Vol] 136 mmol/L Normal 133-145 [facility] Comment on above: Performed By: #### L 504.2610, L501.9520, L500.4100, L001.0705, L100.0100, L500.2500 ####[facility] [address] [place], [address] Urea nitrogen [Mass/Vol] 36 mg/dL High 4-19 [facility] Comment on above: Performed By: #### L 504.2610, L501.9520, L500.4100, L001.0705, L100.0100, L500.2500 ####[facility] [address] [place], [address] Bedside Glucoseon 11-23-2024 FINGERSTICK GLU 184 mg/dL High 74-106 [facility] Comment on above: Result Comment: SNEHA GEMENT OF PATIENT CARE PER NURSING PROTOCOL Performed By: #### L 501.080 ####[facility] [address] [place], [address] FINGERSTICK GLU 164 mg/dL High 74-106 [facility] Comment on above: Result Comment: SNEHA GEMENT OF PATIENT CARE PER NURSING PROTOCOL Performed By: #### L 501.080 ####[facility] [address] [place], [address] FINGERSTICK GLU 158 mg/dL High 74-106 [facility] Comment on above: Result Comment: SNEHA GEMENT OF PATIENT CARE PER NURSING PROTOCOL Performed By: #### L 501.080 ####[facility] [address] [place], [address] CBC W/Diff, Automatedon 11-05 PLT EST ADEQUATE Normal ADEQ [facility] Comment on above: Performed By: #### L 504.2610, L501.9520, L500.4100, L001.0705, L100.0100, L500.2500 ####[facility] [address] [place], [address] POLYCHROMASIA 1+ Normal [facility] Comment on above: Performed By: #### L 504.2610, L501.9520, L500.4100, L001.0705, L100.0100, L500.2500 ####[facility] [address] [place], [address] Consultation - Infectious Dx on 11-23-2024 Consultation - Infectious Dx Normal [facility] Consultation - Intensiviston 11-23-2024 Consultation - Termite Helper Normal [facility] Gram Stainon 11-23-2024 GS List Antibiotics Las t 48 Hours? cefepime List Antibiotics to be Started? vanc, cefepime Gram Stain 4+ Gram negative rods No Epithelial cells Normal [facility] Comment on above: Performed By: #### M 100.2000, M100.3000 ####[facility] [address] [place], [address] LDHon 11-23-2024 LDH 303 U/L High 87-241 [facility] Comment on above: Performed By: #### L 504.2610, L501.9520, L500.4100, L001.0705, L100.0100, L500.2500 ####[facility] [address] [place], [address] Lactic Acidon 11-23-2024 Lactate [Moles/Vol] 4.4 mmol/L Invalid Interpretation Code 0.0-2.0 [facility] Comment on above: Result Comment: Crit ical Result(s) Called at:11-23-24 01:41 TO YO by:??LA DOUGHERTY Results read back by same. Performed By: #### L 503.6005 ####[facility] [address] [place], [address] Legionella Antigen Urineon 0 11-23-2024 LEGU Normal [facility] Comment on above: Performed By: #### M 300.4600, M300.4500 ####[facility] [address] [place], [address] Lipid Profileon 11-23-2024 CHOL:HDL 1.41 Normal [facility] Comment on above: Performed By: #### L 504.2610, L501.9520, L500.4100, L001.0705, L100.0100, L500.2500 ####[facility] [address] [place], [address] Cholesterol [Mass/Vol] 60 mg/dL Normal <=200 [facility] Comment on above: Result Comment: Chol esterol level, Desirable <200 mg/dLBorderline high cholesterol 200-239 mg/dLHigh cholesterol >=240 mg/dLRecommendations of the NCEP Adult Treatment Panel for thefollowing risk-cutoff thresholds for the [place] Americanpopulation. Performed By: #### L 504.2610, L501.9520, L500.4100, L001.0705, L100.0100, L500.2500 ####[facility] [address], [address] Cholesterol in HDL [Mass/Vol] 42 mg/dL Normal [facility] Comment on above: Result Comment: Audrey onal Cholesterol Education Program (NCEP) guidelines:<40 mg/dL: Low HDL-cholesterol (major risk factor for CHD)>= 60 mg/dL: High HDL-cholesterol (negative risk factor forCHD)HDL-cholesterol is affected by a number of factors, e.g.smoking, exercise, hormones, sex and age. Performed By: #### L 504.2610, L501.9520, L500.4100, L001.0705, L100.0100, L500.2500 ####[facility] [id number]. [facility] [id number] Cholesterol in LDL [Mass/Vol] 4 mg/dL Normal [facility] Comment on above: Result Comment: Bord zctppj=064-524 mg/dL Higher Sigy=169 mg/dL or greaterFriedwald Equation for LDL-C Performed By: #### L 504.2610, L501.9520, L500.4100, L001.0705, L100.0100, L500.2500 ####[facility] [id number]. [facility] [address] Cholesterol in VLDL [Mass/Vol] 14 mg/dL Normal 5-40 [facility] Comment on above: Performed By: #### L 504.2610, L501.9520, L500.4100, L001.0705, L100.0100, L500.2500 ####[facility] [address] [place], [address] Triglyceride [Mass/Vol] 69 mg/dL Normal [facility] Comment on above: Result Comment: The drugs N-Acetylcysteine and Metamizole may falselydepress this assay.Normal range: <150 mg/dLBorderline High: 150-199 mg/dLHigh: 200-499 mg/dLVery High: >500 mg/dL Performed By: #### L 504.2610, L501.9520, L500.4100, L001.0705, L100.0100, L500.2500 ####[facility] [address] [place], [address] M8200.1000on 11-23-2024 M8200.1000 Normal Reference Ran ge = Negative MRSA DNA Nose Ql HAYDER+probe GeneXpert Instrument, PCR method MRSA PCR MRSA NEGATIVE Normal [facility] Comment on above: Performed By: #### M 8200.1000 ####[facility] [address] [place], [address] Partial Thromboplast Timeon 11-23-2024 aPTT Coag (Bld) [Time] 35.0 s Normal 24.1-36.2 [facility] Comment on above: Performed By: #### L 300.4310, L300.3900 ####[facility] [address] [place], [address] Protein, Totalon 11-23-2024 T PROT Normal 5.9-8.4 [facility] Comment on above: Result Comment: DUPL ICATE-TESTING DONE AT 0459 Performed By: #### L 001.0705 ####[facility] [address] [place], [address] T PROT 6.2 g/dL Normal 5.9-8.4 [facility] Comment on above: Performed By: #### L 504.2610, L501.9520, L500.4100, L001.0705, L100.0100, L500.2500 ####[facility] [address] [place], [address] Prothrombin Time w/INRon INR Coag (PPP) [Relative time] 1.5 {INR} Normal [facility] Comment on above: Performed By: #### L 300.4310, L300.3900 ####[facility] [address] [place], [address] PT Coag (PPP) [Time] 18.6 s High 11.7-14.9 [facility] Comment on above: Performed By: #### L 300.4310, L300.3900 ####[facility] [address] [place], [address] RESPIRATORY PANEL MOLECULARo n 11-23-2024 RP PANEL Normal [facility] Comment on above: Performed By: #### M 100.638 ####[facility] [address] [place], [address] Strep pneumoniae Antig(UR,CS F)on 11-23-2024 STPAG Normal [facility] Comment on above: Performed By: #### M 300.4600, M300.4500 ####[facility] [address] [place], [address] Thyroid Stim Hormone (TSH)on 11-23-2024 TSH 1.250 uIU/mL Normal 0.300-4.20 0 [facility] Comment on above: Performed By: #### L 504.2610, L501.9520, L500.4100, L001.0705, L100.0100, L500.2500 ####[facility] [address] [place], [address] Urine Cultureon 11-23-2024 URC Culture exhibits no growth. Normal [facility] Comment on above: Performed By: #### L 400.0001, M100.2200 ####[facility] [address] [place], [address] Urine Electrolytes- Randomon 11-23-2024 Chloride,URINE 79 mmol/L Normal Not Establ. [facility] Comment on above: Performed By: #### L 500.9400 ####[facility] [address] [place], [address] Sodium (U) [Moles/Vol] 73 mmol/L Normal Not Establ. [facility] Comment on above: Performed By: #### L 500.9400 ####[facility] [address] [place], [address] UR K 27.7 mmol/L Normal Not Establ. [facility] Comment on above: Performed By: #### L 500.9400 ####[facility] [address] [place], [address] 12 Lead EKGon 11-22-2024 12 Lead EKG Normal [facility] Absolute lymphocyte countOrd ered By: Devin Curry on 11-22-2024 Lymphocytes Auto (Unsp spec) [#/Vol] 0.69 10*3/uL Low 0.83-4.51 [facility] Activated partial thrombopla stin time (aPTT) in platelet poor plasma by coagulation aOrdered By: Devin Curry on 11-22-2024 aPTT Coag (PPP) [Time] 29.5 s 24.1-36.2 [facility] Anion gap in Serum or Plasma Ordered By: Devin Curry on 11-22-2024 Anion gap [Moles/Vol] 18 mmol/L High 5-15 [facility] Automated lymphocyte count a s percentage of total leukocytesOrdered By: Devin Curry on 11-22-2024 Lymphocytes/100 WBC Auto (Unsp spec) 12.7 % Low 19-41 [facility] BUN/creatinine ratioOrdered By: Devin Curry on 11-22-2024 Urea nitrogen/Creatinine [Mass ratio] 20.9 mg/mg High 10-20 [facility] Basophil percentageOrdered B y: Devin Curry on 11-22-2024 Basophils/100 WBC (Bld) 0.2 % 0-1 [facility] Bedside Glucoseon 11-22-2024 FINGERSTICK GLU 221 mg/dL High 74-106 [facility] Comment on above: Result Comment: SNEHA DUNCAN OF PATIENT CARE PER NURSING PROTOCOL Performed By: #### L 501.080 ####[facility] [address] [place], [address] FINGERSTICK GLU 275 mg/dL High 74-106 [facility] Comment on above: Result Comment: SNEHA DUNCAN OF PATIENT CARE PER NURSING PROTOCOL Performed By: #### L 501.080 ####[facility] [address] [place], [address] Bilirubin, totalOrdered By: Devin Curry on 11-22-2024 Bilirubin [Mass/Vol] 1.18 mg/dL 0.00-1.30 [facility]Y TEST Negative Normal [facility] Comment on above: Performed By: #### L 9000.0800 ####[facility] [address] [place], [address] Base excess Calc (Bld) [Moles/Vol] -9 mmol/L Low -2 to +2 [facility] Comment on above: Performed By: #### L 9000.0800 ####[facility] [address] [place], [address] Blood Gas Type ART Normal [facility] Comment on above: Performed By: #### L 9000.0800 ####[facility] [address] [place], [address] CO2 [Moles/Vol] 16 mmol/L Normal [facility] Comment on above: Performed By: #### L 9000.0800 ####[facility] [address] [place], [address] HCO3 (Bld) [Moles/Vol] 15.0 mmol/L Low 22-26 W [facility] Comment on above: Performed By: #### L 9000.0800 ####[facility] [address] [place], [address] Mode Not entered Normal [facility] Comment on above: Performed By: #### L 9000.0800 ####[facility] [address] [place], [address] O2 Delivery Dev Room Air Normal [facility] Comment on above: Performed By: #### L 9000.0800 ####[facility] [address] [place], [address] pCO2 22.6 mmHg Low 35-45 [facility] Comment on above: Performed By: #### L 9000.0800 ####[facility] [address] [place], [address] pH (Bld) 7.43 [pH] Normal 7.35-7.45 [facility] Comment on above: Performed By: #### L 9000.0800 ####[facility] [address] [place], [address] PO2 74 mmHG Low 75-100 [facility] Comment on above: Performed By: #### L 9000.0800 ####[facility] [address] [place], [address] SITE R Radial Normal [facility] Comment on above: Performed By: #### L 9000.0800 ####[facility] [address] [place], [address] SO2 96 Normal 95-99 [facility] Comment on above: Performed By: #### L 9000.0800 ####[facility] [address] [place], [address] Blood manual differential co mment interpretation (narrative result)Ordered By: Devin Curry on 11-22-2024 Manual differential comment Stevie (Bld) [Interp] See comment [facility] CBC W/Diff, Automatedon 08- SMEAR COMMENT Normal [facility] Comment on above: Result Comment: BAND S NOTED Performed By: #### L 100.0100, L500.4050, L300.3900, M200.1000, L503.6005, L300.4310 ####[facility] [address] [place], [address] CTA Chst, Abd, Pel W and/or WOon 11-22-2024 CTA Chst, Abd, Pel W and/or WO Normal [facility] Carbon dioxide, total [Moles /volume] in Central venous bloodOrdered By: Devin Curry on 11-22-2024 CO2 [Moles/Vol] 18.6 mmol/L Low 21.0-32.0 [facility] Chest 1 View (Portable)on Chest 1 View (Portable) Normal [facility] Chloride assayOrdered By: Davian Curry on 11-22-2024 Chloride [Moles/Vol] 102 mmol/L 98-108 [facility] Comprehensive Metabolic Prof ilon 11-22-2024 Albumin [Mass/Vol] 3.7 g/dL Normal 3.4-4.8 [facility] Comment on above: Performed By: #### L 100.0100, L500.4050, L300.3900, M200.1000, L503.6005, L300.4310 ####[facility] [address] [place], [address] Albumin/Globulin [Mass ratio] 1.1 {ratio} Normal 0.9-2.4 [facility] Comment on above: Performed By: #### L 100.0100, L500.4050, L300.3900, M200.1000, L503.6005, L300.4310 ####[facility] [address] [place], [address] ALK PHOS 127 U/L Normal 40-129 [facility] Comment on above: Performed By: #### L 100.0100, L500.4050, L300.3900, M200.1000, L503.6005, L300.4310 ####[facility] [address] [place], [address] ALT [Catalytic activity/Vol] 26 U/L Normal <=46 [facility] Comment on above: Performed By: #### L 100.0100, L500.4050, L300.3900, M200.1000, L503.6005, L300.4310 ####[facility] [address] [place], [address] AST [Catalytic activity/Vol] 33 U/L Normal <=37 [facility] Comment on above: Performed By: #### L 100.0100, L500.4050, L300.3900, M200.1000, L503.6005, L300.4310 ####[facility] [address] [place], [address] Bilirubin [Mass/Vol] 1.18 mg/dL Normal 0.00-1.30 [facility] Comment on above: Performed By: #### L 100.0100, L500.4050, L300.3900, M200.1000, L503.6005, L300.4310 ####[facility] [address] [place], [address] BUN/CRE 20.9 RATIO High 10-20 [facility] Comment on above: Performed By: #### L 100.0100, L500.4050, L300.3900, M200.1000, L503.6005, L300.4310 ####[facility] [address] [place], [address] Calcium [Mass/Vol] 9.4 mg/dL Normal 7.6-11.0 [facility] Comment on above: Performed By: #### L 100.0100, L500.4050, L300.3900, M200.1000, L503.6005, L300.4310 ####[facility] [address] [place], [address] Chloride [Moles/Vol] 102 mmol/L Normal 98-108 [facility] Comment on above: Performed By: #### L 100.0100, L500.4050, L300.3900, M200.1000, L503.6005, L300.4310 ####[facility] [address] [place], [address] CO2 [Moles/Vol] 18.6 mmol/L Low 21.0-32.0 [facility] Comment on above: Performed By: #### L 100.0100, L500.4050, L300.3900, M200.1000, L503.6005, L300.4310 ####[facility] [address] [place], [address] Creatinine [Mass/Vol] 1.25 mg/dL High 0.70-1.20 [facility] Comment on above: Performed By: #### L 100.0100, L500.4050, L300.3900, M200.1000, L503.6005, L300.4310 ####[facility] [address] [place], [place], [address] ECRCL 70.92 ml/min Normal 50-250 [facility] Comment on above: Performed By: #### L 100.0100, L500.4050, L300.3900, M200.1000, L503.6005, L300.4310 ####[facility] [address] [place], [address] GAP 18 High 5-15 [facility] Comment on above: Performed By: #### L 100.0100, L500.4050, L300.3900, M200.1000, L503.6005, L300.4310 ####[facility] [address] [place], [address] GFR/1.73 sq M.predicted among non-blacks MDRD (S/P/Bld) [Vol rate/Area] 64 mL/min/{1.73_m2} Normal >60 [facility] Comment on above: Result Comment: mL/m in/1.73m2 CKD-EPI Creatinine Equation (2020) Performed By: #### L 100.0100, L500.4050, L300.3900, M200.1000, L503.6005, L300.4310 ####[facility] [address] [place], [address] Globulin (S) [Mass/Vol] 3.3 g/dL Normal 2.2-4.2 [facility] Comment on above: Performed By: #### L 100.0100, L500.4050, L300.3900, M200.1000, L503.6005, L300.4310 ####[facility] [address] [place], [address] Glucose [Mass/Vol] 211 mg/dL High 70-99 [facility] Comment on above: Performed By: #### L 100.0100, L500.4050, L300.3900, M200.1000, L503.6005, L300.4310 ####[facility] [address] [place], [address] Potassium [Moles/Vol] 4.3 mmol/L Normal 3.3-5.1 [facility] Comment on above: Performed By: #### L 100.0100, L500.4050, L300.3900, M200.1000, L503.6005, L300.4310 ####[facility] [address] [place], [address] Sodium [Moles/Vol] 139 mmol/L Normal 133-145 [facility] Comment on above: Performed By: #### L 100.0100, L500.4050, L300.3900, M200.1000, L503.6005, L300.4310 ####[facility] [address] [place], [place], [address] T PROT 7.1 g/dL Normal 5.9-8.4 [facility] Comment on above: Performed By: #### L 100.0100, L500.4050, L300.3900, M200.1000, L503.6005, L300.4310 ####[facility] [address] [place], [address] Urea nitrogen [Mass/Vol] 26 mg/dL High - [facility] Comment on above: Performed By: #### L 100.0100, L500.4050, L300.3900, M200.1000, L503.6005, L300.4310 ####[facility] [address] [place], [address] D-Dimer Quantitative (DVT/PE )on 11-22-2024 D-DIMER QUANT 1.01 FEU/ug/m Invalid Interpretation Code 0.27-0.49 [facility] Comment on above: Result Comment: D-Di armando ELEVATED (>0.49): Additional studies and clinicalassessments are indicated to conclude diagnosis of:Deep Vein Thrombosis (DVT) or Pulmonary Embolism (PE)CRITICAL VALUE CALLED TO MAURIICO WILCOX11/22/241924 Sonja Lees.RESULTS READ BACK BY SAME. Performed By: #### L 300.8000 ####[facility] [address] [place], [place], [address] Emergency Department Summary on 11-22-2024 Emergency Department Summary Normal [facility] Eosinophil percentageOrdered By: Devin Curry on 11-22-2024 Eosinophils/100 WBC (Bld) 0.0 % 0-5 [facility] Erythrocyte distribution wid th ratioOrdered By: Devin Curry on 11-22-2024 Erythrocyte distribution width (RBC) [Ratio] 14.6 % 11.6-14.6 [facility] Erythrocyte distribution wid th standard deviationOrdered By: Devin Curry on 11-22-2024 Erythrocyte distribution width (RBC) [Ratio] 50.2 fl High 35.1-43.9 [facility] Glomerular filtration rate ( GFR) estimation/1.73 sq m using serum, plasma, or whole bOrdered By: Devin Curry on 11-22-2024 GFR/1.73 sq M.predicted among non-blacks MDRD (S/P/Bld) [Vol rate/Area] 64 mL/min/{1.73_m2} >60 [facility] H AND P Exam - Hospitaliston 11-22-2024 H&P Exam - Hospitalist Normal [facility] HIP, UNI W/ Pelvis 2-3 Views on 11-22-2024 HIP, UNI W/ Pelvis 2-3 Views Normal [facility] Hematocrit Auto (Bld) [Volum e fraction]Ordered By: Devin Curry on 11-22-2024 Hematocrit (Bld) [Volume fraction] 42.5 % 40-54 [facility] Hemoglobin measurementOrdere d By: Devin Curry on 11-22-2024 Hemoglobin (Bld) [Mass/Vol] 13.6 g/dL 13.0-16.5 [facility] Immature granulocytes/100 WB C Auto (Bld)Ordered By: Devin Curry on 11-22-2024 Immature granulocytes/100 WBC (Bld) 0.400 % 0.0-0.9 [facility] L509.7001on 11-22-2024 Procalcitonin 10.60 ng/mL High <=0.10 [facility] Comment on above: Order Comment: Comme nts: [...] patient. Performed By: #### L 501.5200, L509.7001 ####[facility] [address] [place], [address] Lactic Acidon 11-22-2024 Lactate [Moles/Vol] 5.6 mmol/L Invalid Interpretation Code 0.0-2.0 [facility] Comment on above: Order Comment: Y Result Comment: Crit ical Result(s) Called at: 2116 by: KAVEH MALDONADOALYSSA READ??Results read back by same. Performed By: #### L 153.6005 ####[facility] [address] [place], [address] Lactate [Moles/Vol] 4.8 mmol/L Invalid Interpretation Code 0.0-2.0 [facility] Comment on above: Result Comment: Crit ical Result(s) Called at: 1640 by: KAVEH MARTINEZALITTO??Results read back by same. Performed By: #### L 268.6004 ####[facility] [address] [place], [address] Lactate [Moles/Vol] 4.1 mmol/L Invalid Interpretation Code 0.0-2.0 [facility] Comment on above: Order Comment: Y Result Comment: Crit ical Result(s) Called to: Ana Goetz RN (ER) by: Cecy Banda??Results read back by same. Performed By: #### L 100.0100, L500.4050, L300.3900, M200.1000, L503.6005, L300.4310 ####[facility] [address] [place], [place], [address] MCV (mean corpuscular volume ) determinationOrdered By: Devin Curry on 11-22-2024 MCV (RBC) [Entitic vol] 93.0 fL 80-94 [facility] Magnesiumon 11-22-2024 Magnesium [Mass/Vol] 2.0 mg/dL Normal 1.5-2.2 [facility] Comment on above: Order Comment: Comme nts: may add to ED labs Performed By: #### L 501.5200, L509.7001 ####[facility] [address] [place], [place], [address] Mean corpuscular hemoglobin (MCH) determinationOrdered By: Devin Curry on 11-22-2024 MCH (RBC) [Entitic mass] 29.8 pg 27.0-32.0 [facility] Monocyte percentageOrdered B y: Devin Curry on 11-22-2024 Monocytes/100 WBC (Bld) 6.4 % 0-10 [facility] Neutrophil percentageOrdered By: Devin Curry on 11-22-2024 Neutrophils/100 WBC (Bld) 80.3 % High 47-70 [facility] No Panel InformationOrdered By: Devin Patricio on 11-22-2024 33 U/L <38 [facility] Partial Thromboplast Timeon 11-22-2024 aPTT Coag (Bld) [Time] 29.5 s Normal 24.1-36.2 [facility] Comment on above: Performed By: #### L 100.0100, L500.4050, L300.3900, M200.1000, L503.6005, L300.4310 ####[facility] [address] [place], [place], [address] Platelet countOrdered By: Davian Curry on 11-22-2024 Platelets (Bld) [#/Vol] 392 10*3/uL 150-450 [facility] Potassium measurement (mass/ volume)Ordered By: Devin Curry on 11-22-2024 Potassium (Unsp spec) [Mass/Vol] 4.3 mmol/L 3.3-5.1 [facility] Pro- Brain NATRIURETIC PEPTI Syliva 11-22-2024 Natriuretic peptide B (Bld) [Mass/Vol] 88247 pg/mL High <=900 [facility] Comment on above: Result Comment: Hear t Failure Unlikely: < 300 pg/mLHeart Failure Likely< 50 Years: > 450 pg/mL50-75 Years: > 900 pg/mL>75 Years: > 1800 pg/mL Performed By: #### L 503.7500 ####[facility] [address] [place], [address] Prothrombin Time w/INRon INR Coag (PPP) [Relative time] 1.2 {INR} Normal [facility] Comment on above: Performed By: #### L 100.0100, L500.4050, L300.3900, M200.1000, L503.6005, L300.4310 ####[facility] [address] [place], [address] PT Coag (PPP) [Time] 15.6 s High 11.7-14.9 [facility] Comment on above: Performed By: #### L 100.0100, L500.4050, L300.3900, M200.1000, L503.6005, L300.4310 ####[facility] [address] [place], [place], [address] Prothrombin timeOrdered By: Devin Curry on 11-22-2024 PT Coag (PPP) [Time] 15.6 s High 11.7-14.9 [facility] RBC Auto (Bld) [#/Vol]Ordere d By: Devin Curry on 11-22-2024 RBC (Bld) [#/Vol] 4.57 10*6/uL Low 4.6-6.2 [facility] Serum creatinine measurement (mass/volume)Ordered By: Devin Curry on 11-22-2024 Creatinine [Mass/Vol] 1.25 mg/dL High 0.70-1.20 [facility] Serum globulin measurementOr dered By: Devin Curry on 11-22-2024 Globulin (S) [Mass/Vol] 3.3 g/dL 2.2-4.2 [facility] Serum glucose measurement (m ass/volume)Ordered By: Devin Curry on 11-22-2024 Glucose [Mass/Vol] 211 mg/dL High 70-99 [facility] Serum or plasma alanine martino otransferase (ALT) measurementOrdered By: Devin Curry on 11-22-2024 ALT [Catalytic activity/Vol] 26 U/L <47 [facility] Serum or plasma albumin brenda urement (mass/volume)Ordered By: Devin Curry on 11-22-2024 Albumin [Mass/Vol] 3.7 g/dL 3.4-4.8 [facility] Serum or plasma albumin/glob ulin mass ratioOrdered By: Devin Curry on 11-22-2024 Albumin/Globulin [Mass ratio] 1.1 {ratio} 0.9-2.4 [facility] Serum or plasma alkaline yulia sphatase measurementOrdered By: Devin Curry on 11-22-2024 ALP [Catalytic activity/Vol] 127 U/L 40-129 [facility] Serum or plasma calcium brenda urement (mass/volume)Ordered By: Devin Curry on 11-22-2024 Calcium [Mass/Vol] 9.4 mg/dL 7.6-11.0 [facility] Serum or plasma urea nitroge n measurement (mass/volume)Ordered By: Devin Curry on 11-22-2024 Urea nitrogen [Mass/Vol] 26 mg/dL High 4-19 [facility] Sodium levelOrdered By: Devin Curry on 11-22-2024 Sodium [Moles/Vol] 139 mmol/L 133-145 [facility] Total proteinOrdered By: Yann Curry on 11-22-2024 Protein [Mass/Vol] 7.1 g/dL 5.9-8.4 [facility] Urinalysis, Completeon 11-22 CAST,COARSE GR 0-5 SEEN Normal 0-5 /lpf [facility] Comment on above: Order Comment: COLOR OF URINE MAY AFFECT DIPSTICK RESULTS.PAPER WINDER TO SPECIFY Performed By: #### L 400.0001, M1.0 ####[facility] [address] [place], [address] CAST,FINE GRAN 5-10 SEEN Normal 0-5 [facility] Comment on above: Order Comment: COLOR OF URINE MAY AFFECT DIPSTICK RESULTS.PAPER WINDER TO SPECIFY Performed By: #### L 400.0001, M100.2200 ####[facility] [address] [place], [address] CAST,HYALINE 25-50 SEEN Normal 0-5 [facility] Comment on above: Order Comment: COLOR OF URINE MAY AFFECT DIPSTICK RESULTS.PAPER WINDER TO SPECIFY Performed By: #### L 400.0001, M100.2200 ####[facility] [address] [place], [address] RBC 0-5 SEEN Normal 0-5 [facility] Comment on above: Order Comment: COLOR OF URINE MAY AFFECT DIPSTICK RESULTS.PAPER WINDER TO SPECIFY Performed By: #### L 400.0001, M100.2200 ####[facility] [address] [place], [address] WBC 5-10 SEEN Normal 0-5 [facility] Comment on above: Order Comment: COLOR OF URINE MAY AFFECT DIPSTICK RESULTS.PAPER WINDER TO SPECIFY Performed By: #### L 400.0001, M100.2200 ####[facility] [address] [place], [address] BACTERIA 0 SEEN Normal None Seen [facility] Comment on above: Order Comment: COLOR OF URINE MAY AFFECT DIPSTICK RESULTS.PAPER WINDER TO SPECIFY Performed By: #### L 400.0001, M100.2200 ####[facility] [address] [place], [address] EPI,SQUAMOUS 0 SEEN Normal 0-5 [facility] Comment on above: Order Comment: COLOR OF URINE MAY AFFECT DIPSTICK RESULTS.PAPER WINDER TO SPECIFY Performed By: #### L 400.0001, M100.2200 ####[facility] [address] [place], [address] Mucus Ql (Urine sed) 0 SEEN Normal [facility] Comment on above: Order Comment: COLOR OF URINE MAY AFFECT DIPSTICK RESULTS.PAPER WINDER TO SPECIFY Performed By: #### L 400.0001, M100.2200 ####[facility] [address] [place], [address] Venous Duplex US - Felipe Extre mon 11-22-2024 Venous Duplex US - Felipe Extrem Normal [facility] White blood cell (WBC) count Ordered By: Devin Curry on 11-22-2024 WBC (Bld) [#/Vol] 5.4 10*3/uL 4.4-11.0 [facility] MR/BMSDandre 11-16-2024 MR/BMS.BVS Normal [facility] Basic Metabolic Profile (BMP )on 11-14-2024 BUN Normal 4-19 [facility] Comment on above: Result Comment: Canc elled via OM: Order cancelled - Patient discharged Performed By: #### L 100.0100, L500.2500 ####[facility] [address] [place], [address] BUN/CRE Normal 10-20 [facility] Comment on above: Result Comment: Canc elled via OM: Order cancelled - Patient discharged Performed By: #### L 100.0100, L500.2500 ####[facility] [address] [place], [address] Calcium Normal 7.6-11.0 [facility] Comment on above: Result Comment: Canc elled via OM: Order cancelled - Patient discharged Performed By: #### L 100.0100, L500.2500 ####[facility] [address] [place], [address] CL Normal 98-108 [facility] Comment on above: Result Comment: Canc elled via OM: Order cancelled - Patient discharged Performed By: #### L 100.0100, L500.2500 ####[facility] [address] [place], [address] CO2 Normal 21.0-32.0 [facility] Comment on above: Result Comment: Canc elled via OM: Order cancelled - Patient discharged Performed By: #### L 100.0100, L500.2500 ####[facility] [address] [place], [address] CREAT,SERUM Normal 0.70-1.20 [facility] Comment on above: Result Comment: Canc elled via OM: Order cancelled - Patient discharged Performed By: #### L 100.0100, L500.2500 ####[facility] [address] [place], [address] eGFR Normal >60 [facility] Comment on above: Result Comment: Canc elled via OM: Order cancelled - Patient discharged Performed By: #### L 100.0100, L500.2500 ####[facility] [address] [place], [address] GAP Normal 5-15 [facility] Comment on above: Result Comment: Canc elled via OM: Order cancelled - Patient discharged Performed By: #### L 100.0100, L500.2500 ####[facility] [address] [place], [address] GLU Normal 70-99 [facility] Comment on above: Result Comment: Canc elled via OM: Order cancelled - Patient discharged Performed By: #### L 100.0100, L500.2500 ####[facility] [address] [place], [address] Potassium Normal 3.3-5.1 [facility] Comment on above: Result Comment: Canc elled via OM: Order cancelled - Patient discharged Performed By: #### L 100.0100, L500.2500 ####[facility] [address] [place], [address] Basic Metabolic Profile (BMP) Normal 133-145 [facility] Comment on above: Result Comment: Canc elled via OM: Order cancelled - Patient discharged Performed By: #### L 100.0100, L500.2500 ####[facility] [address] [place], [address] CBC W/Diff, Automatedon 08-1 Absolute Neut Normal 2.0-7.7 [facility] Comment on above: Result Comment: Canc elled via OM: Order cancelled - Patient discharged Performed By: #### L 100.0100, L500.2500 ####[facility] [address] [place], [address] HCT Normal 40-54 [facility] Comment on above: Result Comment: Canc elled via OM: Order cancelled - Patient discharged Performed By: #### L 100.0100, L500.2500 ####[facility] [address] [place], [address] HGB Normal 13.0-16.5 [facility] Comment on above: Result Comment: Canc elled via OM: Order cancelled - Patient discharged Performed By: #### L 100.0100, L500.2500 ####[facility] [address] [place], [address] MCH Normal 27.0-32.0 [facility] Comment on above: Result Comment: Canc elled via OM: Order cancelled - Patient discharged Performed By: #### L 100.0100, L500.2500 ####[facility] [address] [place], [address] MCHC Normal 32-36 [facility] Comment on above: Result Comment: Canc elled via OM: Order cancelled - Patient discharged Performed By: #### L 100.0100, L500.2500 ####[facility] [address] [place], [address] MCV Normal 80-94 [facility] Comment on above: Result Comment: Canc elled via OM: Order cancelled - Patient discharged Performed By: #### L 100.0100, L500.2500 ####[facility] [address] [place], [address] NEUT% Normal 47-70 [facility] Comment on above: Result Comment: Canc elled via OM: Order cancelled - Patient discharged Performed By: #### L 100.0100, L500.2500 ####[facility] [address] [place], [address] PLT Normal 150-450 [facility] Comment on above: Result Comment: Canc elled via OM: Order cancelled - Patient discharged Performed By: #### L 100.0100, L500.2500 ####[facility] [address] [place], [address] RBC Normal 4.6-6.2 [facility] Comment on above: Result Comment: Canc elled via OM: Order cancelled - Patient discharged Performed By: #### L 100.0100, L500.2500 ####[facility] [address] [place], [address] RDW CV Normal 11.6-14.6 [facility] Comment on above: Result Comment: Canc elled via OM: Order cancelled - Patient discharged Performed By: #### L 100.0100, L500.2500 ####[facility] [address] [place], [address] RDW SD Normal 35.1-43.9 [facility] Comment on above: Result Comment: Canc elled via OM: Order cancelled - Patient discharged Performed By: #### L 100.0100, L500.2500 ####[facility] [address] [place], [address] WBC Normal 4.4-11.0 [facility] Comment on above: Result Comment: Canc elled via OM: Order cancelled - Patient discharged Performed By: #### L 100.0100, L500.2500 ####[facility] [address] [place], [address] Absolute lymphocyte countOrd ered By: Steve Fields on 11-13-2024 Lymphocytes Auto (Unsp spec) [#/Vol] 1.48 10*3/uL 0.83-4.51 [facility] Anion gap in Serum or Plasma Ordered By: Steve Fields on 11-13-2024 Anion gap [Moles/Vol] 11 mmol/L 5-15 [facility] Automated lymphocyte count a s percentage of total leukocytesOrdered By: Steve Fields on 11-13-2024 Lymphocytes/100 WBC Auto (Unsp spec) 20.0 % 19-41 [facility] BUN/creatinine ratioOrdered By: Steve Fields on 11-13-2024 Urea nitrogen/Creatinine [Mass ratio] 22.2 mg/mg High - [facility] Basic Metabolic Profile (BMP )on 11-13-2024 BUN/CRE 22.2 RATIO High - [facility] Comment on above: Performed By: #### L 100.0100, L500.2500 ####[facility] [address] [place], [address] Calcium [Mass/Vol] 8.8 mg/dL Normal 7.6-11.0 [facility] Comment on above: Performed By: #### L 100.0100, L500.2500 ####[facility] [address] [place], [address] Chloride [Moles/Vol] 100 mmol/L Normal 98-108 [facility] Comment on above: Performed By: #### L 100.0100, L500.2500 ####[facility] [address] [place], [address] CO2 [Moles/Vol] 26.1 mmol/L Normal 21.0-32.0 [facility] Comment on above: Performed By: #### L 100.0100, L500.2500 ####[facility] [address] [place], [address] Creatinine [Mass/Vol] 0.98 mg/dL Normal 0.70-1.20 [facility] Comment on above: Performed By: #### L 100.0100, L500.2500 ####[facility] [address] [place], [address] ECRCL 89.59 ml/min Normal 50-250 [facility] Comment on above: Performed By: #### L 100.0100, L500.2500 ####[facility] [address] [place], [address] GAP 11 Normal 5-15 [facility] Comment on above: Performed By: #### L 100.0100, L500.2500 ####[facility] [address] [place], [address] GFR/1.73 sq M.predicted among non-blacks MDRD (S/P/Bld) [Vol rate/Area] 86 mL/min/{1.73_m2} Normal >60 [facility] Comment on above: Result Comment: mL/m in/1.73m2 CKD-EPI Creatinine Equation (2020) Performed By: #### L 100.0100, L500.2500 ####[facility] [address] [place], [address] Glucose [Mass/Vol] 98 mg/dL Normal 70-99 [facility] Comment on above: Performed By: #### L 100.0100, L500.2500 ####[facility] [address] [place], [address] Potassium [Moles/Vol] 3.8 mmol/L Normal 3.3-5.1 [facility] Comment on above: Performed By: #### L 100.0100, L500.2500 ####[facility] [address] [place], [address] Sodium [Moles/Vol] 137 mmol/L Normal 133-145 [facility] Comment on above: Performed By: #### L 100.0100, L500.2500 ####[facility] [address] [place], [address] Urea nitrogen [Mass/Vol] 22 mg/dL High 4-19 [facility] Comment on above: Performed By: #### L 100.0100, L500.2500 ####[facility] [address] [place], [address] Basophil percentageOrdered B y: Steve Fields on 11-13-2024 Basophils/100 WBC (Bld) 0.3 % 0-1 [facility] Bedside Glucoseon 11-13-2024 FINGERSTICK GLU 200 mg/dL High 74-106 [facility] Comment on above: Result Comment: SNEHA GEMENT OF PATIENT CARE PER NURSING PROTOCOL Performed By: #### L 501.080 ####[facility] [address] [place], [address] FINGERSTICK GLU 88 mg/dL Normal 74-106 [facility] Comment on above: Result Comment: SNEHA GEMENT OF PATIENT CARE PER NURSING PROTOCOL Performed By: #### L 501.080 ####[facility] [address] [place], [address] CBC W/Diff, Automatedon 11-04 0-2024 Absolute Lymph 1.48 X10 3/uL Normal 0.83-4.51 [facility] Comment on above: Performed By: #### L 100.0100, L500.2500 ####[facility] [address] [place], [address] Absolute Neut 5.0 X10 3/uL Normal 2.0-7.7 [facility] Comment on above: Performed By: #### L 100.0100, L500.2500 ####[facility] [address] [place], [address] Basophils/100 WBC (Bld) 0.3 % Normal 0-1 [facility] Comment on above: Performed By: #### L 100.0100, L500.2500 ####[facility] [address] [place], [address] Eosinophils/100 WBC (Bld) 3.1 % Normal 0-5 [facility] Comment on above: Performed By: #### L 100.0100, L500.2500 ####[facility] [address] [place], [address] Erythrocyte distribution width (RBC) [Ratio] 14.1 % Normal 11.6-14.6 [facility] Comment on above: Performed By: #### L 100.0100, L500.2500 ####[facility] [address] [place], [address] Hematocrit (Bld) [Volume fraction] 39.8 % Low 40-54 [facility] Comment on above: Performed By: #### L 100.0100, L500.2500 ####[facility] [address] [place], [address] Hemoglobin (Bld) [Mass/Vol] 12.9 g/dL Low 13.0-16.5 [facility] Comment on above: Performed By: #### L 100.0100, L500.2500 ####[facility] [address] [place], [address] IG% 0.400 Normal 0.0-0.9 [facility] Comment on above: Result Comment: IG% - Immature Granulocytes (promyelocytes, myelocytes andmetamyelocytes) > 1% indicates that a LEFT SHIFT is Present. Performed By: #### L 100.0100, L500.2500 ####[facility] [address] [place], [address] Lymphocytes/100 WBC (Bld) 20.0 % Normal 19-41 [facility] Comment on above: Performed By: #### L 100.0100, L500.2500 ####[facility] [address] [place], [address] MCH (RBC) [Entitic mass] 30.2 pg Normal 27.0-32.0 [facility] Comment on above: Performed By: #### L 100.0100, L500.2500 ####[facility] [address] [place], [address] MCHC (RBC) [Mass/Vol] 32.4 g/dL Normal 32-36 [facility] Comment on above: Performed By: #### L 100.0100, L500.2500 ####[facility] [address] [place], [address] MCV (RBC) [Entitic vol] 93.2 fL Normal 80-94 [facility] Comment on above: Performed By: #### L 100.0100, L500.2500 ####[facility] [address] [place], [address] Monocytes/100 WBC (Bld) 8.9 % Normal 0-10 [facility] Comment on above: Performed By: #### L 100.0100, L500.2500 ####[facility] [address] [place], [address] Neutrophils/100 WBC (Bld) 67.3 % Normal 47-70 [facility] Comment on above: Performed By: #### L 100.0100, L500.2500 ####[facility] [address] [place], [address] Nucleated RBC (Bld) [#/Vol] 0 10*3/uL Normal 0-5 [facility] Comment on above: Performed By: #### L 100.0100, L500.2500 ####[facility] [address] [place], [address] Platelet mean volume (Bld) [Entitic vol] 9.2 fL Normal 6.2-12.0 [facility] Comment on above: Performed By: #### L 100.0100, L500.2500 ####[facility] [address] [place], [address] Platelets (Bld) [#/Vol] 321 10*3/uL Normal 150-450 [facility] Comment on above: Performed By: #### L 100.0100, L500.2500 ####[facility] [address] [place], [address] RBC (Bld) [#/Vol] 4.27 10*6/uL Low 4.6-6.2 [facility] Comment on above: Performed By: #### L 100.0100, L500.2500 ####[facility] [address] [place], [address] RDW SD 47.8 fl High 35.1-43.9 [facility] Comment on above: Performed By: #### L 100.0100, L500.2500 ####[facility] [address] [place], [address] WBC (Bld) [#/Vol] 7.4 10*3/uL Normal 4.4-11.0 [facility] Comment on above: Performed By: #### L 100.0100, L500.2500 ####[facility] [address] [place], [address] Carbon dioxide, total [Moles /volume] in Central venous bloodOrdered By: Steve Fields on 11-13-2024 CO2 [Moles/Vol] 26.1 mmol/L 21.0-32.0 [facility] Chloride assayOrdered By: Lencho Fields on 11-13-2024 Chloride [Moles/Vol] 100 mmol/L 98-108 [facility] Eosinophil percentageOrdered By: Steve Fields on 11-13-2024 Eosinophils/100 WBC (Bld) 3.1 % 0-5 [facility] Erythrocyte distribution wid th ratioOrdered By: Steve Fiedls on 11-13-2024 Erythrocyte distribution width (RBC) [Ratio] 14.1 % 11.6-14.6 [facility] Erythrocyte distribution wid th standard deviationOrdered By: Steve Fields on 11-13-2024 Erythrocyte distribution width (RBC) [Ratio] 47.8 fl High 35.1-43.9 [facility] Glomerular filtration rate ( GFR) estimation/1.73 sq m using serum, plasma, or whole bOrdered By: Steve Fields on 11-13-2024 GFR/1.73 sq M.predicted among non-blacks MDRD (S/P/Bld) [Vol rate/Area] 86 mL/min/{1.73_m2} >60 [facility] Glucose measurement at bedsi deOrdered By: Steve Fields on 11-13-2024 Glucose [Mass/Vol] 200 mg/dL High 74-106 [facility] Hematocrit Auto (Bld) [Volum e fraction]Ordered By: Steve Fields on 11-13-2024 Hematocrit (Bld) [Volume fraction] 39.8 % Low 40-54 [facility] Hemoglobin measurementOrdere d By: Steve Fields on 11-13-2024 Hemoglobin (Bld) [Mass/Vol] 12.9 g/dL Low 13.0-16.5 [facility] Immature granulocytes/100 WB C Auto (Bld)Ordered By: Steve Fields on 11-13-2024 Immature granulocytes/100 WBC (Bld) 0.400 % 0.0-0.9 [facility] MCV (mean corpuscular volume ) determinationOrdered By: Steve Fields on 11-13-2024 MCV (RBC) [Entitic vol] 93.2 fL 80-94 [facility] Mean corpuscular hemoglobin (MCH) determinationOrdered By: Steve Fields on 11-13-2024 MCH (RBC) [Entitic mass] 30.2 pg 27.0-32.0 [facility] Monocyte percentageOrdered B y: Steve Fields on 11-13-2024 Monocytes/100 WBC (Bld) 8.9 % 0-10 [facility] Neutrophil percentageOrdered By: Steve Fields on 11-13-2024 Neutrophils/100 WBC (Bld) 67.3 % 47-70 [facility] Platelet countOrdered By: Lencho Fields on 11-13-2024 Platelets (Bld) [#/Vol] 321 10*3/uL 150-450 [facility] Potassium measurement (mass/ volume)Ordered By: Steve Fields on 11-13-2024 Potassium (Unsp spec) [Mass/Vol] 3.8 mmol/L 3.3-5.1 [facility] RBC Auto (Bld) [#/Vol]Ordere d By: Steve Fields on 11-13-2024 RBC (Bld) [#/Vol] 4.27 10*6/uL Low 4.6-6.2 [facility] Serum creatinine measurement (mass/volume)Ordered By: Steve Fields on 11-13-2024 Creatinine [Mass/Vol] 0.98 mg/dL 0.70-1.20 [facility] Serum glucose measurement (m ass/volume)Ordered By: Steve Fields on 11-13-2024 Glucose [Mass/Vol] 98 mg/dL 70-99 [facility] Serum or plasma calcium brenda urement (mass/volume)Ordered By: Steve Fields on 11-13-2024 Calcium [Mass/Vol] 8.8 mg/dL 7.6-11.0 [facility] Serum or plasma urea nitroge n measurement (mass/volume)Ordered By: Steve Fields on 11-13-2024 Urea nitrogen [Mass/Vol] 22 mg/dL High 4-19 [facility] Sodium levelOrdered By: Tye Fields on 11-13-2024 Sodium [Moles/Vol] 137 mmol/L 133-145 [facility] White blood cell (WBC) count Ordered By: Steve Fields on 11-13-2024 WBC (Bld) [#/Vol] 7.4 10*3/uL 4.4-11.0 [facility] Basic Metabolic Profile (BMP )on 11-12-2024 BUN/CRE 21.0 RATIO High 10-20 [facility] Comment on above: Performed By: #### L 500.2500, L501.5200, L501.2300, L100.0100 ####[facility] [address] [place], [address] Calcium [Mass/Vol] 9.2 mg/dL Normal 7.6-11.0 [facility] Comment on above: Performed By: #### L 500.2500, L501.5200, L501.2300, L100.0100 ####[facility] [address] [place], [address] Chloride [Moles/Vol] 99 mmol/L Normal 98-108 [facility] Comment on above: Performed By: #### L 500.2500, L501.5200, L501.2300, L100.0100 ####[facility] [address] [place], [address] CO2 [Moles/Vol] 26.9 mmol/L Normal 21.0-32.0 [facility] Comment on above: Performed By: #### L 500.2500, L501.5200, L501.2300, L100.0100 ####[facility] [address] [place], [address] Creatinine [Mass/Vol] 1.16 mg/dL Normal 0.70-1.20 [facility] Comment on above: Performed By: #### L 500.2500, L501.5200, L501.2300, L100.0100 ####[facility] [address] [place], [address] ECRCL 75.69 ml/min Normal 50-250 [facility] Comment on above: Performed By: #### L 500.2500, L501.5200, L501.2300, L100.0100 ####[facility] [address] [place], [address] GAP 10 Normal 5-15 [facility] Comment on above: Performed By: #### L 500.2500, L501.5200, L501.2300, L100.0100 ####[facility] [address] [place], [address] GFR/1.73 sq M.predicted among non-blacks MDRD (S/P/Bld) [Vol rate/Area] 70 mL/min/{1.73_m2} Normal >60 [facility] Comment on above: Result Comment: mL/m in/1.73m2 CKD-EPI Creatinine Equation (2020) Performed By: #### L 500.2500, L501.5200, L501.2300, L100.0100 ####[facility] [address] [place], [address] Glucose [Mass/Vol] 143 mg/dL High 70-99 [facility] Comment on above: Performed By: #### L 500.2500, L501.5200, L501.2300, L100.0100 ####[facility] [address] [place], [address] Potassium [Moles/Vol] 4.2 mmol/L Normal 3.3-5.1 [facility] Comment on above: Performed By: #### L 500.2500, L501.5200, L501.2300, L100.0100 ####[facility] [address] [place], [address] Sodium [Moles/Vol] 137 mmol/L Normal 133-145 [facility] Comment on above: Performed By: #### L 500.2500, L501.5200, L501.2300, L100.0100 ####[facility] [address] [place], [address] Urea nitrogen [Mass/Vol] 24 mg/dL High 4-19 [facility] Comment on above: Performed By: #### L 500.2500, L501.5200, L501.2300, L100.0100 ####[facility] [address] [place], [address] Bedside Glucoseon 11-12-2024 FINGERSTICK GLU 253 mg/dL High 74-106 [facility] Comment on above: Result Comment: SNEHA GEMENT OF PATIENT CARE PER NURSING PROTOCOL Performed By: #### L 501.080 ####[facility] [address] [place], [address] FINGERSTICK GLU 201 mg/dL High 74-106 [facility] Comment on above: Result Comment: SNEHA GEMENT OF PATIENT CARE PER NURSING PROTOCOL Performed By: #### L 501.080 ####[facility] [address] [place], [address] FINGERSTICK GLU 154 mg/dL High 74-106 [facility] Comment on above: Result Comment: SNEHA GEMENT OF PATIENT CARE PER NURSING PROTOCOL Performed By: #### L 501.080 ####[facility] [address] [place], [address] FINGERSTICK GLU 132 mg/dL High 74-106 [facility] Comment on above: Result Comment: SNEHA GEMENT OF PATIENT CARE PER NURSING PROTOCOL Performed By: #### L 501.080 ####[facility] [address] [place], [address] CBC W/Diff, Automatedon 08-0 Absolute Lymph 1.61 X10 3/uL Normal 0.83-4.51 [facility] Comment on above: Performed By: #### L 500.2500, L501.5200, L501.2300, L100.0100 ####[facility] [address] [place], [address] Absolute Neut 3.8 X10 3/uL Normal 2.0-7.7 [facility] Comment on above: Performed By: #### L 500.2500, L501.5200, L501.2300, L100.0100 ####[facility] [address] [place], [address] Basophils/100 WBC (Bld) 0.5 % Normal 0-1 [facility] Comment on above: Performed By: #### L 500.2500, L501.5200, L501.2300, L100.0100 ####[facility] [address] [place], [address] Eosinophils/100 WBC (Bld) 3.6 % Normal 0-5 [facility] Comment on above: Performed By: #### L 500.2500, L501.5200, L501.2300, L100.0100 ####[facility] [address] [place], [address] Erythrocyte distribution width (RBC) [Ratio] 14.3 % Normal 11.6-14.6 [facility] Comment on above: Performed By: #### L 500.2500, L501.5200, L501.2300, L100.0100 ####[facility] [address] [place], [address] Hematocrit (Bld) [Volume fraction] 41.4 % Normal 40-54 [facility] Comment on above: Performed By: #### L 500.2500, L501.5200, L501.2300, L100.0100 ####[facility] [address] [place], [address] Hemoglobin (Bld) [Mass/Vol] 13.3 g/dL Normal 13.0-16.5 [facility] Comment on above: Performed By: #### L 500.2500, L501.5200, L501.2300, L100.0100 ####[facility] [address] [place], [address] IG% 0.300 Normal 0.0-0.9 [facility] Comment on above: Result Comment: IG% - Immature Granulocytes (promyelocytes, myelocytes andmetamyelocytes) > 1% indicates that a LEFT SHIFT is Present. Performed By: #### L 500.2500, L501.5200, L501.2300, L100.0100 ####[facility] [address] [place], [address] Lymphocytes/100 WBC (Bld) 25.4 % Normal 19-41 [facility] Comment on above: Performed By: #### L 500.2500, L501.5200, L501.2300, L100.0100 ####[facility] [address] [place], [address] MCH (RBC) [Entitic mass] 29.8 pg Normal 27.0-32.0 [facility] Comment on above: Performed By: #### L 500.2500, L501.5200, L501.2300, L100.0100 ####[facility] [address] [place], [address] MCHC (RBC) [Mass/Vol] 32.1 g/dL Normal 32-36 [facility] Comment on above: Performed By: #### L 500.2500, L501.5200, L501.2300, L100.0100 ####[facility] [address] [place], [address] MCV (RBC) [Entitic vol] 92.8 fL Normal 80-94 [facility] Comment on above: Performed By: #### L 500.2500, L501.5200, L501.2300, L100.0100 ####[facility] [address] [place], [address] Monocytes/100 WBC (Bld) 9.9 % Normal 0-10 [facility] Comment on above: Performed By: #### L 500.2500, L501.5200, L501.2300, L100.0100 ####[facility] [address] [place], [address] Neutrophils/100 WBC (Bld) 60.3 % Normal 47-70 [facility] Comment on above: Performed By: #### L 500.2500, L501.5200, L501.2300, L100.0100 ####[facility] [address] [place], [address] Nucleated RBC (Bld) [#/Vol] 0 10*3/uL Normal 0-5 [facility] Comment on above: Performed By: #### L 500.2500, L501.5200, L501.2300, L100.0100 ####[facility] [address] [place], [address] Platelet mean volume (Bld) [Entitic vol] 9.3 fL Normal 6.2-12.0 [facility] Comment on above: Performed By: #### L 500.2500, L501.5200, L501.2300, L100.0100 ####[facility] [address] [place], [address] Platelets (Bld) [#/Vol] 317 10*3/uL Normal 150-450 [facility] Comment on above: Performed By: #### L 500.2500, L501.5200, L501.2300, L100.0100 ####[facility] [address] [place], [address] RBC (Bld) [#/Vol] 4.46 10*6/uL Low 4.6-6.2 [facility] Comment on above: Performed By: #### L 500.2500, L501.5200, L501.2300, L100.0100 ####[facility] [address] [place], [address] RDW SD 47.9 fl High 35.1-43.9 [facility] Comment on above: Performed By: #### L 500.2500, L501.5200, L501.2300, L100.0100 ####[facility] [address] [place], [address] WBC (Bld) [#/Vol] 6.3 10*3/uL Normal 4.4-11.0 [facility] Comment on above: Performed By: #### L 500.2500, L501.5200, L501.2300, L100.0100 ####[facility] [address] [place], [address] Magnesiumon 11-12-2024 Magnesium [Mass/Vol] 2.2 mg/dL Normal 1.5-2.2 [facility] Comment on above: Performed By: #### L 500.2500, L501.5200, L501.2300, L100.0100 ####[facility] [address] [place], [address] Magnesium measurement (mass/ volume)Ordered By: Steve Fields on 11-12-2024 Magnesium (Unsp spec) [Mass/Vol] 2.2 mg/dL 1.5-2.2 [facility] Phosphoruson 11-12-2024 Phosphate [Mass/Vol] 3.2 mg/dL Normal 2.7-4.5 [facility] Comment on above: Performed By: #### L 500.2500, L501.5200, L501.2300, L100.0100 ####[facility] [address] [place], [address] Bedside Glucoseon 11-11-2024 FINGERSTICK GLU 218 mg/dL High 74-106 [facility] Comment on above: Result Comment: SNEHA GEMENT OF PATIENT CARE PER NURSING PROTOCOL Performed By: #### L 501.080 ####[facility] [address] [place], [address] FINGERSTICK GLU 186 mg/dL High 74-106 [facility] Comment on above: Result Comment: SNEHA GEMENT OF PATIENT CARE PER NURSING PROTOCOL Performed By: #### L 501.080 ####[facility] [address] [place], [address] FINGERSTICK GLU 242 mg/dL High 74-106 [facility] Comment on above: Result Comment: SNEHA GEMENT OF PATIENT CARE PER NURSING PROTOCOL Performed By: #### L 501.080 ####[facility] [address] [place], [address] FINGERSTICK GLU 221 mg/dL High 74-106 [facility] Comment on above: Result Comment: SNEHA GEMENT OF PATIENT CARE PER NURSING PROTOCOL Performed By: #### L 501.080 ####[facility] [address] [place], [address] FINGERSTICK GLU 164 mg/dL High 74-106 [facility] Comment on above: Result Comment: SNEHA GEMENT OF PATIENT CARE PER NURSING PROTOCOL Performed By: #### L 501.080 ####[facility] [address] [place], [address] FINGERSTICK GLU 223 mg/dL High 74-106 [facility] Comment on above: Result Comment: SNEHA GEMENT OF PATIENT CARE PER NURSING PROTOCOL Performed By: #### L 501.080 ####[facility] [address] [place], [address] Bilirubin, totalOrdered By: Corazon Diaz on 11-11-2024 Bilirubin [Mass/Vol] 0.71 mg/dL 0.00-1.30 [facility] CBC W/Diff, Automatedon Absolute Lymph 1.57 X10 3/uL Normal 0.83-4.51 [facility] Comment on above: Performed By: #### L 100.0100, L500.4100, L501.9520, L500.4050 ####[facility] [address] [place], [address] Absolute Neut 5.7 X10 3/uL Normal 2.0-7.7 [facility] Comment on above: Performed By: #### L 100.0100, L500.4100, L501.9520, L500.4050 ####[facility] [address] [place], [address] Basophils/100 WBC (Bld) 0.4 % Normal 0-1 [facility] Comment on above: Performed By: #### L 100.0100, L500.4100, L501.9520, L500.4050 ####[facility] [address] [place], [address] Eosinophils/100 WBC (Bld) 1.3 % Normal 0-5 [facility] Comment on above: Performed By: #### L 100.0100, L500.4100, L501.9520, L500.4050 ####[facility] [address] [place], [address] Erythrocyte distribution width (RBC) [Ratio] 14.3 % Normal 11.6-14.6 [facility] Comment on above: Performed By: #### L 100.0100, L500.4100, L501.9520, L500.4050 ####[facility] [address] [place], [address] Hematocrit (Bld) [Volume fraction] 40.7 % Normal 40-54 [facility] Comment on above: Performed By: #### L 100.0100, L500.4100, L501.9520, L500.4050 ####[facility] [address] [place], [address] Hemoglobin (Bld) [Mass/Vol] 13.3 g/dL Normal 13.0-16.5 [facility] Comment on above: Performed By: #### L 100.0100, L500.4100, L501.9520, L500.4050 ####[facility] [address] [place], [address] IG% 0.300 Normal 0.0-0.9 [facility] Comment on above: Result Comment: IG% - Immature Granulocytes (promyelocytes, myelocytes andmetamyelocytes) > 1% indicates that a LEFT SHIFT is Present. Performed By: #### L 100.0100, L500.4100, L501.9520, L500.4050 ####[facility] [address] [place], [address] Lymphocytes/100 WBC (Bld) 19.7 % Normal 19-41 [facility] Comment on above: Performed By: #### L 100.0100, L500.4100, L501.9520, L500.4050 ####[facility] [address] [place], [address] MCH (RBC) [Entitic mass] 30.1 pg Normal 27.0-32.0 [facility] Comment on above: Performed By: #### L 100.0100, L500.4100, L501.9520, L500.4050 ####[facility] [address] [place], [address] MCHC (RBC) [Mass/Vol] 32.7 g/dL Normal 32-36 [facility] Comment on above: Performed By: #### L 100.0100, L500.4100, L501.9520, L500.4050 ####[facility] [address] [place], [address] MCV (RBC) [Entitic vol] 92.1 fL Normal 80-94 [facility] Comment on above: Performed By: #### L 100.0100, L500.4100, L501.9520, L500.4050 ####[facility] [address] [place], [address] Monocytes/100 WBC (Bld) 7.6 % Normal 0-10 [facility] Comment on above: Performed By: #### L 100.0100, L500.4100, L501.9520, L500.4050 ####[facility] [address] [place], [address] Neutrophils/100 WBC (Bld) 70.7 % High 47-70 [facility] Comment on above: Performed By: #### L 100.0100, L500.4100, L501.9520, L500.4050 ####[facility] [address] [place], [address] Nucleated RBC (Bld) [#/Vol] 0 10*3/uL Normal 0-5 [facility] Comment on above: Performed By: #### L 100.0100, L500.4100, L501.9520, L500.4050 ####[facility] [address] [place], [address] Platelet mean volume (Bld) [Entitic vol] 9.4 fL Normal 6.2-12.0 [facility] Comment on above: Performed By: #### L 100.0100, L500.4100, L501.9520, L500.4050 ####[facility] [address] [place], [address] Platelets (Bld) [#/Vol] 332 10*3/uL Normal 150-450 [facility] Comment on above: Performed By: #### L 100.0100, L500.4100, L501.9520, L500.4050 ####[facility] [address] [place], [address] RBC (Bld) [#/Vol] 4.42 10*6/uL Low 4.6-6.2 [facility] Comment on above: Performed By: #### L 100.0100, L500.4100, L501.9520, L500.4050 ####[facility] [address] [place], [address] RDW SD 47.8 fl High 35.1-43.9 [facility] Comment on above: Performed By: #### L 100.0100, L500.4100, L501.9520, L500.4050 ####[facility] [address] [place], [address] WBC (Bld) [#/Vol] 8.0 10*3/uL Normal 4.4-11.0 [facility] Comment on above: Performed By: #### L 100.0100, L500.4100, L501.9520, L500.4050 ####[facility] [address] [place], [address] Calculated very low density lipoprotein (VLDL) cholesterol measurementOrdered By: Corazon Diaz on 11-11-2024 Calculated very low density lipoprotein (VLDL) cholesterol measurement 17 mg/dL 5-40 [facility] Comprehensive Metabolic Prof ilon 11-11-2024 Albumin [Mass/Vol] 3.6 g/dL Normal 3.4-4.8 [facility] Comment on above: Performed By: #### L 100.0100, L500.4100, L501.9520, L500.4050 ####[facility] [address] [place], [address] Albumin/Globulin [Mass ratio] 1.2 {ratio} Normal 0.9-2.4 [facility] Comment on above: Performed By: #### L 100.0100, L500.4100, L501.9520, L500.4050 ####[facility] [address] [place], [address] ALK PHOS 124 U/L Normal 40-129 [facility] Comment on above: Performed By: #### L 100.0100, L500.4100, L501.9520, L500.4050 ####[facility] [address] [place], [address] ALT [Catalytic activity/Vol] 18 U/L Normal <=46 [facility] Comment on above: Performed By: #### L 100.0100, L500.4100, L501.9520, L500.4050 ####[facility] [address] [place], [address] AST [Catalytic activity/Vol] 29 U/L Normal <=37 [facility] Comment on above: Performed By: #### L 100.0100, L500.4100, L501.9520, L500.4050 ####[facility] [address] [place], [address] Bilirubin [Mass/Vol] 0.71 mg/dL Normal 0.00-1.30 [facility] Comment on above: Performed By: #### L 100.0100, L500.4100, L501.9520, L500.4050 ####[facility] [address] [place], [address] BUN/CRE 19.0 RATIO Normal 10-20 [facility] Comment on above: Performed By: #### L 100.0100, L500.4100, L501.9520, L500.4050 ####[facility] [address] [place], [address] Calcium [Mass/Vol] 9.0 mg/dL Normal 7.6-11.0 [facility] Comment on above: Performed By: #### L 100.0100, L500.4100, L501.9520, L500.4050 ####[facility] [address] [place], [address] Chloride [Moles/Vol] 101 mmol/L Normal 98-108 [facility] Comment on above: Performed By: #### L 100.0100, L500.4100, L501.9520, L500.4050 ####[facility] [address] [place], [address] CO2 [Moles/Vol] 20.4 mmol/L Low 21.0-32.0 [facility] Comment on above: Performed By: #### L 100.0100, L500.4100, L501.9520, L500.4050 ####[facility] [address] [place], [address] Creatinine [Mass/Vol] 1.16 mg/dL Normal 0.70-1.20 [facility] Comment on above: Performed By: #### L 100.0100, L500.4100, L501.9520, L500.4050 ####[facility] [address] [place], [address] ECRCL 75.69 ml/min Normal 50-250 [facility] Comment on above: Performed By: #### L 100.0100, L500.4100, L501.9520, L500.4050 ####[facility] [address] [place], [address] GAP 14 Normal 5-15 [facility] Comment on above: Performed By: #### L 100.0100, L500.4100, L501.9520, L500.4050 ####[facility] [address] [place], [address] GFR/1.73 sq M.predicted among non-blacks MDRD (S/P/Bld) [Vol rate/Area] 70 mL/min/{1.73_m2} Normal >60 [facility] Comment on above: Result Comment: mL/m in/1.73m2 CKD-EPI Creatinine Equation (2020) Performed By: #### L 100.0100, L500.4100, L501.9520, L500.4050 ####[facility] [address] [place], [address] Globulin (S) [Mass/Vol] 3.1 g/dL Normal 2.2-4.2 [facility] Comment on above: Performed By: #### L 100.0100, L500.4100, L501.9520, L500.4050 ####[facility] [address] [place], [address] Glucose [Mass/Vol] 159 mg/dL High 70-99 [facility] Comment on above: Performed By: #### L 100.0100, L500.4100, L501.9520, L500.4050 ####[facility] [address] [place], [address] Potassium [Moles/Vol] 3.9 mmol/L Normal 3.3-5.1 [facility] Comment on above: Performed By: #### L 100.0100, L500.4100, L501.9520, L500.4050 ####[facility] [address] [place], [address] Sodium [Moles/Vol] 136 mmol/L Normal 133-145 [facility] Comment on above: Performed By: #### L 100.0100, L500.4100, L501.9520, L500.4050 ####[facility] [address] [place], [address] T PROT 6.7 g/dL Normal 5.9-8.4 [facility] Comment on above: Performed By: #### L 100.0100, L500.4100, L501.9520, L500.4050 ####[facility] [address] [place], [address] Urea nitrogen [Mass/Vol] 22 mg/dL High 4-19 [facility] Comment on above: Performed By: #### L 100.0100, L500.4100, L501.9520, L500.4050 ####[facility] [address] [place], [address] Consultation - Cardiologyon 11-11-2024 Consultation - Cardiology Normal [facility] LDL calc ser/plasOrdered By: Corazon Diaz on 11-11-2024 Cholesterol in LDL [Mass/Vol] 3 mg/dL [facility] Lipid Profileon 11-11-2024 CHOL:HDL 1.45 Normal [facility] Comment on above: Performed By: #### L 100.0100, L500.4100, L501.9520, L500.4050 ####[facility] [address] [place], [address] Cholesterol [Mass/Vol] 64 mg/dL Normal <=200 [facility] Comment on above: Result Comment: Chol esterol level, Desirable <200 mg/dLBorderline high cholesterol 200-239 mg/dLHigh cholesterol >=240 mg/dLRecommendations of the NCEP Adult Treatment Panel for thefollowing risk-cutoff thresholds for the [place] Americanpulation. Performed By: #### L 100.0100, L500.4100, L501.9520, L500.4050 ####[facility] [address] [place], [address] Cholesterol in HDL [Mass/Vol] 44 mg/dL Normal [facility] Comment on above: Result Comment: Audrey onal Cholesterol Education Program (NCEP) guidelines:<40 mg/dL: Low HDL-cholesterol (major risk factor for CHD)>= 60 mg/dL: High HDL-cholesterol (negative risk factor forCHD)HDL-cholesterol is affected by a number of factors, e.g.smoking, exercise, hormones, sex and age. Performed By: #### L 100.0100, L500.4100, L501.9520, L500.4050 ####[facility] [address] [place], [address] Cholesterol in LDL [Mass/Vol] 3 mg/dL Normal [facility] Comment on above: Result Comment: Bord qornlr=082-317 mg/dL Higher Uaug=235 mg/dL or greaterFriedwald Equation for LDL-C Performed By: #### L 100.0100, L500.4100, L501.9520, L500.4050 ####[facility] [address] [place], [address] Cholesterol in VLDL [Mass/Vol] 17 mg/dL Normal 5-40 [facility] Comment on above: Performed By: #### L 100.0100, L500.4100, L501.9520, L500.4050 ####[facility] [address] [place], [address] Triglyceride [Mass/Vol] 84 mg/dL Normal [facility] Comment on above: Result Comment: The drugs N-Acetylcysteine and Metamizole may falselydepress this assay.Normal range: <150 mg/dLBorderline High: 150-199 mg/dLHigh: 200-499 mg/dLVery High: >500 mg/dL Performed By: #### L 100.0100, L500.4100, L501.9520, L500.4050 ####[facility] [address] [place], [address] No Panel InformationOrdered By: Corazon Diaz on 11-11-2024 29 U/L <38 [facility] Serum globulin measurementOr dered By: Corazon Diaz on 11-11-2024 Globulin (S) [Mass/Vol] 3.1 g/dL 2.2-4.2 [facility] Serum or plasma alanine martino otransferase (ALT) measurementOrdered By: Corazon Diaz on 11-11-2024 ALT [Catalytic activity/Vol] 18 U/L <47 [facility] Serum or plasma albumin brenda urement (mass/volume)Ordered By: Corazon Diaz on 11-11-2024 Albumin [Mass/Vol] 3.6 g/dL 3.4-4.8 [facility] Serum or plasma albumin/glob ulin mass ratioOrdered By: Corazon Emily 11-11-2024 Albumin/Globulin [Mass ratio] 1.2 {ratio} 0.9-2.4 [facility] Serum or plasma alkaline yulia sphatase measurementOrdered By: Corazon Diaz on 11-11-2024 ALP [Catalytic activity/Vol] 124 U/L 40-129 [facility] Serum or plasma cholesterol in HDL measurement (mass/volume)Ordered By: Corazon Diaz on 11-11-2024 Cholesterol in HDL [Mass/Vol] 44 mg/dL >40 [facility] Serum or plasma cholesterol measurement (mass/volume)Ordered By: Corazon Diaz 11-11-2024 Cholesterol [Mass/Vol] 64 mg/dL <201 [facility] TSH DL <= 0.005 mIU/L QnOrde red By: Corazon Diaz on 11-11-2024 TSH Qn 0.807 uIU/mL 0.300-4.20 0 [facility] Thyroid Stim Hormone (TSH)on 11-11-2024 TSH 0.807 uIU/mL Normal 0.300-4.20 0 [facility] Comment on above: Performed By: #### L 100.0100, L500.4100, L501.9520, L500.4050 ####[facility] [address] [place], [address] Total proteinOrdered By: Sea Diaz on 11-11-2024 Protein [Mass/Vol] 6.7 g/dL 5.9-8.4 [facility] 12 Lead EKGon 11-10-2024 12 Lead EKG Normal [facility] 12 Lead EKG Normal [facility] Absolute lymphocyte countOrd ered By: ED PROVIDER on 11-10-2024 Lymphocytes Auto (Unsp spec) [#/Vol] 1.74 10*3/uL 0.83-4.51 [facility] Anion gap in Serum or Plasma Ordered By: Bishop Monique on 11-10-2024 Anion gap [Moles/Vol] 12 mmol/L 5-15 [facility] Assessment of wrist artery p atency prior to arterial punctureOrdered By: Corazon Diaz on 11-10-2024 Arterial patency Wrist artery --pre arterial puncture Positive [facility] Automated lymphocyte count a s percentage of total leukocytesOrdered By: ED PROVIDER on 11-10-2024 Lymphocytes/100 WBC Auto (Unsp spec) 20.2 % 19-41 [facility] BUN/creatinine ratioOrdered By: Bishop Monique on 11-10-2024 Urea nitrogen/Creatinine [Mass ratio] 20.3 mg/mg High 10-20 [facility] Basic Metabolic Profile (BMP )on 11-10-2024 BUN/CRE 20.3 RATIO High - [facility] Comment on above: Performed By: #### L 100.0100, L501.4021, L500.2500 ####[facility] [address] [place], [address] Calcium [Mass/Vol] 8.8 mg/dL Normal 7.6-11.0 [facility] Comment on above: Performed By: #### L 100.0100, L501.4021, L500.2500 ####[facility] [address] [place], [address] Chloride [Moles/Vol] 101 mmol/L Normal 98-108 [facility] Comment on above: Performed By: #### L 100.0100, L501.4021, L500.2500 ####[facility] [address] [place], [address] CO2 [Moles/Vol] 23.1 mmol/L Normal 21.0-32.0 [facility] Comment on above: Performed By: #### L 100.0100, L501.4021, L500.2500 ####[facility] [address] [place], [address] Creatinine [Mass/Vol] 1.19 mg/dL Normal 0.70-1.20 [facility] Comment on above: Performed By: #### L 100.0100, L501.4021, L500.2500 ####[facility] [address] [place], [address] GAP 12 Normal 5-15 [facility] Comment on above: Performed By: #### L 100.0100, L501.4021, L500.2500 ####[facility] [address] [place], [address] GFR/1.73 sq M.predicted among non-blacks MDRD (S/P/Bld) [Vol rate/Area] 68 mL/min/{1.73_m2} Normal >60 [facility] Comment on above: Result Comment: mL/m in/1.73m2 CKD-EPI Creatinine Equation (2020) Performed By: #### L 100.0100, L501.4021, L500.2500 ####[facility] [address] [place], [address] Glucose [Mass/Vol] 174 mg/dL High 70-99 [facility] Comment on above: Performed By: #### L 100.0100, L501.4021, L500.2500 ####[facility] [address] [place], [address] Potassium [Moles/Vol] 3.7 mmol/L Normal 3.3-5.1 [facility] Comment on above: Performed By: #### L 100.0100, L501.4021, L500.2500 ####[facility] [address] [place], [address] Sodium [Moles/Vol] 136 mmol/L Normal 133-145 [facility] Comment on above: Performed By: #### L 100.0100, L501.4021, L500.2500 ####[facility] [address] [place], [address] Urea nitrogen [Mass/Vol] 24 mg/dL High 4-19 [facility] Comment on above: Performed By: #### L 100.0100, L501.4021, L500.2500 ####[facility] [address] [place], [address] Basophil percentageOrdered B y: ED PROVIDER on 11-10-2024 Basophils/100 WBC (Bld) 0.3 % 0-1 [facility] Bedside Glucoseon 11-10-2024 FINGERSTICK GLU 123 mg/dL High 74-106 [facility] Comment on above: Result Comment: SNEHA DUNCAN OF PATIENT CARE PER NURSING PROTOCOL Performed By: #### L 501.080 ####[facility] [address] [place], [address] Blood Gases by CPSon 025 MOY TEST Positive Normal [facility] Comment on above: Performed By: #### L 9000.0800 ####[facility] [address] [place], [address] Base excess Calc (Bld) [Moles/Vol] 0 mmol/L Normal -2 to +2 [facility] Comment on above: Performed By: #### L 9000.0800 ####[facility] [address] [place], [address] Blood Gas Type ART Normal [facility] Comment on above: Performed By: #### L 9000.0800 ####[facility] [address] [place], [address] CO2 [Moles/Vol] 25 mmol/L Normal [facility] Comment on above: Performed By: #### L 9000.0800 ####[facility] [address] [place], [address] FI02 2.0 Normal [facility] Comment on above: Performed By: #### L 9000.0800 ####[facility] [address] [place], [address] HCO3 (Bld) [Moles/Vol] 23.5 mmol/L Normal 22-26 [facility] Comment on above: Performed By: #### L 9000.0800 ####[facility] [address] [place], [address] Mode Not entered Normal [facility] Comment on above: Performed By: #### L 9000.0800 ####[facility] [address] [place], [address] O2 Delivery Dev Cannula Normal [facility] Comment on above: Performed By: #### L 9000.0800 ####[facility] [address] [place], [address] pCO2 31.3 mmHg Low 35-45 [facility] Comment on above: Performed By: #### L 9000.0800 ####[facility] [address] [place], [address] pH (Bld) 7.48 [pH] High 7.35-7.45 [facility] Comment on above: Performed By: #### L 9000.0800 ####[facility] [address] [place], [address] PO2 85 mmHG Normal 75-100 [facility] Comment on above: Performed By: #### L 9000.0800 ####[facility] [address] [place], [address] SITE L Radial Normal [facility] Comment on above: Performed By: #### L 9000.0800 ####[facility] [address] [place], [address] SO2 97 Normal 95-99 [facility] Comment on above: Performed By: #### L 9000.0800 ####[facility] [address] [place], [address] Blood base excess determinat ionOrdered By: Corazon Diaz on 11-10-2024 Base excess Calc (BldV) [Moles/Vol] 0 mmol/L -2-2 [facility] Blood bicarbonate measuremen tOrdered By: Corazon Diaz on 11-10-2024 HCO3 (Bld) [Moles/Vol] 23.5 mmol/L 22-26 [facility] CBC W/Diff, Automatedon 08 Absolute Lymph 1.74 X10 3/uL Normal 0.83-4.51 [facility] Comment on above: Performed By: #### L 100.0100, L501.4021, L500.2500 ####[facility] [address] [place], [address] Absolute Neut 6.0 X10 3/uL Normal 2.0-7.7 [facility] Comment on above: Performed By: #### L 100.0100, L501.4021, L500.2500 ####[facility] [address] [place], [address] Basophils/100 WBC (Bld) 0.3 % Normal 0-1 [facility] Comment on above: Performed By: #### L 100.0100, L501.4021, L500.2500 ####[facility] [address] [place], [address] Eosinophils/100 WBC (Bld) 1.5 % Normal 0-5 [facility] Comment on above: Performed By: #### L 100.0100, L501.4021, L500.2500 ####[facility] [address] [place], [address] Erythrocyte distribution width (RBC) [Ratio] 14.2 % Normal 11.6-14.6 [facility] Comment on above: Performed By: #### L 100.0100, L501.4021, L500.2500 ####[facility] [address] [place], [address] Hematocrit (Bld) [Volume fraction] 41.6 % Normal 40-54 [facility] Comment on above: Performed By: #### L 100.0100, L501.4021, L500.2500 ####[facility] [address] [place], [address] Hemoglobin (Bld) [Mass/Vol] 13.3 g/dL Normal 13.0-16.5 [facility] Comment on above: Performed By: #### L 100.0100, L501.4021, L500.2500 ####[facility] [address] [place], [address] IG% 0.300 Normal 0.0-0.9 [facility] Comment on above: Result Comment: IG% - Immature Granulocytes (promyelocytes, myelocytes andmetamyelocytes) > 1% indicates that a LEFT SHIFT is Present. Performed By: #### L 100.0100, L501.4021, L500.2500 ####[facility] [address] [place], [address] Lymphocytes/100 WBC (Bld) 20.2 % Normal 19-41 [facility] Comment on above: Performed By: #### L 100.0100, L501.4021, L500.2500 ####[facility] [address] [place], [address] MCH (RBC) [Entitic mass] 30.0 pg Normal 27.0-32.0 [facility] Comment on above: Performed By: #### L 100.0100, L501.4021, L500.2500 ####[facility] [address] [place], [address] MCHC (RBC) [Mass/Vol] 32.0 g/dL Normal 32-36 [facility] Comment on above: Performed By: #### L 100.0100, L501.4021, L500.2500 ####[facility] [address] [place], [address] MCV (RBC) [Entitic vol] 93.9 fL Normal 80-94 [facility] Comment on above: Performed By: #### L 100.0100, L501.4021, L500.2500 ####[facility] [address] [place], [address] Monocytes/100 WBC (Bld) 8.0 % Normal 0-10 [facility] Comment on above: Performed By: #### L 100.0100, L501.4021, L500.2500 ####[facility] [address] [place], [address] Neutrophils/100 WBC (Bld) 69.7 % Normal 47-70 [facility] Comment on above: Performed By: #### L 100.0100, L501.4021, L500.2500 ####[facility] [address] [place], [address] Nucleated RBC (Bld) [#/Vol] 0 10*3/uL Normal 0-5 [facility] Comment on above: Performed By: #### L 100.0100, L501.4021, L500.2500 ####[facility] [address] [place], [address] Platelet mean volume (Bld) [Entitic vol] 9.3 fL Normal 6.2-12.0 [facility] Comment on above: Performed By: #### L 100.0100, L501.4021, L500.2500 ####[facility] [address] [place], [address] Platelets (Bld) [#/Vol] 336 10*3/uL Normal 150-450 [facility] Comment on above: Performed By: #### L 100.0100, L501.4021, L500.2500 ####[facility] [address] [place], [address] RBC (Bld) [#/Vol] 4.43 10*6/uL Low 4.6-6.2 [facility] Comment on above: Performed By: #### L 100.0100, L501.4021, L500.2500 ####[facility] [address] [place], [address] RDW SD 48.4 fl High 35.1-43.9 [facility] Comment on above: Performed By: #### L 100.0100, L501.4021, L500.2500 ####[facility] [address] [place], [address] WBC (Bld) [#/Vol] 8.6 10*3/uL Normal 4.4-11.0 [facility] Comment on above: Performed By: #### L 100.0100, L501.4021, L500.2500 ####[facility] [address] [place], [address] Carbon dioxide, total [Moles /volume] in Central venous bloodOrdered By: Bishop Monique on 11-10-2024 CO2 [Moles/Vol] 23.1 mmol/L 21.0-32.0 [facility] Chest PA and Lateralon 11-10 Chest PA and Lateral Normal [facility] Chloride assayOrdered By: Elías Monique on 11-10-2024 Chloride [Moles/Vol] 101 mmol/L 98-108 [facility] Emergency Department Summary on 11-10-2024 Emergency Department Summary Normal [facility] Eosinophil percentageOrdered By: ED PROVIDER on 11-10-2024 Eosinophils/100 WBC (Bld) 1.5 % 0-5 [facility] Erythrocyte distribution wid th ratioOrdered By: ED PROVIDER on 11-10-2024 Erythrocyte distribution width (RBC) [Ratio] 14.2 % 11.6-14.6 [facility] Erythrocyte distribution wid th standard deviationOrdered By: ED PROVIDER on 11-10-2024 Erythrocyte distribution width (RBC) [Ratio] 48.4 fl High 35.1-43.9 [facility] Glomerular filtration rate ( GFR) estimation/1.73 sq m using serum, plasma, or whole bOrdered By: Bishop Monique on 11-10-2024 GFR/1.73 sq M.predicted among non-blacks MDRD (S/P/Bld) [Vol rate/Area] 68 mL/min/{1.73_m2} >60 [facility] H AND P Exam - Hospitaliston 11-10-2024 H&P Exam - Hospitalist Normal [facility] Hematocrit Auto (Bld) [Volum e fraction]Ordered By: ED PROVIDER on 11-10-2024 Hematocrit (Bld) [Volume fraction] 41.6 % 40-54 [facility] Hemoglobin measurementOrdere d By: ED PROVIDER on 11-10-2024 Hemoglobin (Bld) [Mass/Vol] 13.3 g/dL 13.0-16.5 [facility] Immature granulocytes/100 WB C Auto (Bld)Ordered By: ED PROVIDER on 11-10-2024 Immature granulocytes/100 WBC (Bld) 0.300 % 0.0-0.9 [facility] Influenza virus A and B and SARS-CoV-2 (COVID-19) and Respiratory syncytial virus RNAOrdered By: Bishop Monique on 11-10-2024 SARS-CoV-2 (COVID-19) RNA HAYDER+probe Ql (Unsp spec) [facility] Internal Medicine Office Vis iton 11-10-2024 Internal Medicine Office Visit Normal [facility] L501.4021on 11-10-2024 Trop T High Sen 42 ng/L High <=22 [facility] Comment on above: Performed By: #### L 100.0100, L501.4021, L500.2500 ####[facility] [address] [place], [address] M100.678on 11-10-2024 M100.678 Pending SARS-CoV-2 (COVID 19) Negative INFLUENZA A Negative INFLUENZA B Negative RSV PCR Negative Normal [facility] Comment on above: Performed By: #### M 100.678 ####[facility] [address] [place], [address] MCV (mean corpuscular volume ) determinationOrdered By: ED PROVIDER on 11-10-2024 MCV (RBC) [Entitic vol] 93.9 fL 80-94 [facility] Magnesiumon 11-10-2024 Magnesium [Mass/Vol] 2.0 mg/dL Normal 1.5-2.2 [facility] Comment on above: Order Comment: Comme nts: may add to ED labs Performed By: #### L 501.5200 ####[facility] [address] [place], [address] Magnesium measurement (mass/ volume)Ordered By: Corazon Diaz on 11-10-2024 Magnesium (Unsp spec) [Mass/Vol] 2.0 mg/dL 1.5-2.2 [facility] Mean corpuscular hemoglobin (MCH) determinationOrdered By: ED PROVIDER on 11-10-2024 MCH (RBC) [Entitic mass] 30.0 pg 27.0-32.0 [facility] Measurement, pHOrdered By: Colton nic Diaz on 11-10-2024 pH (Unsp spec) 7.48 [pH] High 7.35-7.45 [facility] Monocyte percentageOrdered B y: ED PROVIDER on 11-10-2024 Monocytes/100 WBC (Bld) 8.0 % 0-10 [facility] Natriuretic peptide.B prohor parris N-Terminal [Mass/volume] in Serum or PlasmaOrdered By: Bishop Monique on 11-10-2024 Natriuretic peptide.B prohormone N-Terminal [Mass/Vol] 9141 pg/mL High <900 [facility] Neutrophil percentageOrdered By: ED PROVIDER on 11-10-2024 Neutrophils/100 WBC (Bld) 69.7 % 47-70 [facility] No Panel InformationOrdered By: Corazon Emily on 11-10-2024 ART [facility] L Radial [facility] Not entered [facility] Cannula [facility] Platelet countOrdered By: ED PROVIDER on 11-10-2024 Platelets (Bld) [#/Vol] 336 10*3/uL 150-450 [facility] Potassium measurement (mass/ volume)Ordered By: Bishop Monique on 11-10-2024 Potassium (Unsp spec) [Mass/Vol] 3.7 mmol/L 3.3-5.1 [facility] Pro- Brain NATRIURETIC PEPTI Sylvia 11-10-2024 Natriuretic peptide B (Bld) [Mass/Vol] 9141 pg/mL High <=900 [facility] Comment on above: Result Comment: Hear t Failure Unlikely: < 300 pg/mLHeart Failure Likely< 50 Years: > 450 pg/mL50-75 Years: > 900 pg/mL>75 Years: > 1800 pg/mL Performed By: #### L 503.7505 ####[facility] [address] [place], [address] RBC Auto (Bld) [#/Vol]Ordere d By: ED PROVIDER on 11-10-2024 RBC (Bld) [#/Vol] 4.43 10*6/uL Low 4.6-6.2 [facility] Serum creatinine measurement (mass/volume)Ordered By: Bishop Monique on 11-10-2024 Creatinine [Mass/Vol] 1.19 mg/dL 0.70-1.20 [facility] Serum glucose measurement (m ass/volume)Ordered By: Bishop Monique on 11-10-2024 Glucose [Mass/Vol] 174 mg/dL High 70-99 [facility] Serum or plasma calcium brenda urement (mass/volume)Ordered By: Bishop Oviedo on 11-10-2024 Calcium [Mass/Vol] 8.8 mg/dL 7.6-11.0 [facility] Serum or plasma urea nitroge n measurement (mass/volume)Ordered By: Bishop Monique on 11-10-2024 Urea nitrogen [Mass/Vol] 24 mg/dL High 4-19 [facility] Sodium levelOrdered By: Maurisio Monique on 11-10-2024 Sodium [Moles/Vol] 136 mmol/L 133-145 [facility] Total carbon dioxide measure mentOrdered By: Corazon Diaz on 11-10-2024 CO2 [Moles/Vol] 25 mmol/L [facility] Troponin T HS 2 HRon 025 Trop T High Sen 37 ng/L High <=22 [facility] Comment on above: Performed By: #### L 499.0042 ####[facility] [address] [place], [place], [address] Troponin T HS 4 HRon 025 Trop T High Sen 36 ng/L High <=22 [facility] Comment on above: Performed By: #### L 499.0043 ####[facility] [address] [place], [place], [address] Trop T High Sen Normal <=22 [facility] Comment on above: Result Comment: Stan pope via OM: Ordered Performed By: #### L 499.0043 ####[facility] [address] [place], [place], [address] Troponin T.cardiac [Mass/vol ume] in Serum or Plasma by High sensitivity methodOrdered By: Corazon Diaz on 11-10-2024 Troponin T.cardiac High sensitivity method [Mass/Vol] 36 ng/L High <22 [facility] Troponin T.cardiac [Mass/vol ume] in Serum or Plasma by High sensitivity methodOrdered By: Bishop Monique on 11-10-2024 Troponin T.cardiac High sensitivity method [Mass/Vol] 37 ng/L High <22 [facility] Troponin T.cardiac High sensitivity method [Mass/Vol] 42 ng/L High <22 [facility] White blood cell (WBC) count Ordered By: ED PROVIDER on 11-10-2024 WBC (Bld) [#/Vol] 8.6 10*3/uL 4.4-11.0 [facility] Internal Medicine Office Vis iton 11-04-2024 Internal Medicine Office Visit Normal [facility] Cardiology Visit Reporton Cardiology Visit Report Normal [facility] Absolute lymphocyte countOrd ered By: Magaly Abdi on 10-27-2024 Lymphocytes Auto (Unsp spec) [#/Vol] 0.95 10*3/uL 0.83-4.51 [facility] Anion gap in Serum or Plasma Ordered By: Bronson Tolentino on 10-27-2024 Anion gap [Moles/Vol] 13 mmol/L 5-15 [facility] Automated lymphocyte count a s percentage of total leukocytesOrdered By: Magaly Abdi on 10-27-2024 Lymphocytes/100 WBC Auto (Unsp spec) 14.2 % Low 19-41 [facility] BUN/creatinine ratioOrdered By: Bronson Tolentino on 10-27-2024 Urea nitrogen/Creatinine [Mass ratio] 18.1 mg/mg 10- [facility] Basic Metabolic Profile (BMP )on 10-27-2024 BUN/CRE 18.1 RATIO Normal - [facility] Comment on above: Performed By: #### L 100.0100, L500.2500, L503.6005, L500.3400, L501.2450, L501.5200 ####[facility] [address] [place], [address] Calcium [Mass/Vol] 8.8 mg/dL Normal 7.6-11.0 [facility] Comment on above: Performed By: #### L 100.0100, L500.2500, L503.6005, L500.3400, L501.2450, L501.5200 ####[facility] [address] [place], [address] Chloride [Moles/Vol] 98 mmol/L Normal 98-108 [facility] Comment on above: Performed By: #### L 100.0100, L500.2500, L503.6005, L500.3400, L501.2450, L501.5200 ####[facility] [address] [place], [address] CO2 [Moles/Vol] 20.9 mmol/L Low 21.0-32.0 [facility] Comment on above: Performed By: #### L 100.0100, L500.2500, L503.6005, L500.3400, L501.2450, L501.5200 ####[facility] [address] [place], [address] Creatinine [Mass/Vol] 0.99 mg/dL Normal 0.70-1.20 [facility] Comment on above: Performed By: #### L 100.0100, L500.2500, L503.6005, L500.3400, L501.2450, L501.5200 ####[facility] [address] [place], [address] ECRCL 87.66 ml/min Normal 50-250 [facility] Comment on above: Performed By: #### L 100.0100, L500.2500, L503.6005, L500.3400, L501.2450, L501.5200 ####[facility] [address] [place], [address] GAP 13 Normal 5-15 [facility] Comment on above: Performed By: #### L 100.0100, L500.2500, L503.6005, L500.3400, L501.2450, L501.5200 ####[facility] [address] [place], [address] GFR/1.73 sq M.predicted among non-blacks MDRD (S/P/Bld) [Vol rate/Area] 85 mL/min/{1.73_m2} Normal >60 [facility] Comment on above: Result Comment: mL/m in/1.73m2 CKD-EPI Creatinine Equation (2020) Performed By: #### L 100.0100, L500.2500, L503.6005, L500.3400, L501.2450, L501.5200 ####[facility] [address] [place], [address] Glucose [Mass/Vol] 203 mg/dL High 70-99 [facility] Comment on above: Performed By: #### L 100.0100, L500.2500, L503.6005, L500.3400, L501.2450, L501.5200 ####[facility] [address] [place], [address] Potassium [Moles/Vol] 4.2 mmol/L Normal 3.3-5.1 [facility] Comment on above: Result Comment: Hemo lysis present, Results??could be affected.?? Performed By: #### L 100.0100, L500.2500, L503.6005, L500.3400, L501.2450, L501.5200 ####[facility] [address] [place], [address] Sodium [Moles/Vol] 132 mmol/L Low 133-145 [facility] Comment on above: Performed By: #### L 100.0100, L500.2500, L503.6005, L500.3400, L501.2450, L501.5200 ####[facility] [address] [place], [address] Urea nitrogen [Mass/Vol] 18 mg/dL Normal 4-19 [facility] Comment on above: Performed By: #### L 100.0100, L500.2500, L503.6005, L500.3400, L501.2450, L501.5200 ####[facility] [address] [place], [address] Basophil percentageOrdered B y: Magaly Trinidad on 10-27-2024 Basophils/100 WBC (Bld) 0.3 % 0-1 [facility] Bilirubin Test strip Ql (U)O rdered By: Bronson Tolentino on 10-27-2024 Bilirubin Ql (U) Negative Negative [facility] Bilirubin directOrdered By: Bronson Tolentino on 10-27-2024 Bilirubin.direct [Mass/Vol] 0.17 mg/dL 0.00-0.30 [facility] Bilirubin, totalOrdered By: Bronson Tolentino on 10-27-2024 Bilirubin [Mass/Vol] 0.99 mg/dL 0.00-1.30 [facility] CBC W/Diff, Automatedon 10-05 Absolute Lymph 0.95 X10 3/uL Normal 0.83-4.51 [facility] Comment on above: Order Comment: REDRA W. PREVIOUS SPECIMEN REJECTED DUE TOCLOTTED. 10/27/2427 Hermilo R Law. Performed By: #### L 100.0100 ####[facility] [address] [place], [address] Absolute Neut 5.3 X10 3/uL Normal 2.0-7.7 [facility] Comment on above: Order Comment: REDRA W. PREVIOUS SPECIMEN REJECTED DUE TOCLOTTED. 10/27/2427 Hermilo R Law. Performed By: #### L 100.0100 ####[facility] [address] [place], [address] Basophils/100 WBC (Bld) 0.3 % Normal 0-1 [facility] Comment on above: Order Comment: REDRA W. PREVIOUS SPECIMEN REJECTED DUE TOCLOTTED. 10/27/2427 Hermilo R Law. Performed By: #### L 100.0100 ####[facility] [address] [place], [address] Eosinophils/100 WBC (Bld) 2.2 % Normal 0-5 [facility] Comment on above: Order Comment: REDRA W. PREVIOUS SPECIMEN REJECTED DUE TOCLOTTED. 10/27/2427 Hermilo R Law. Performed By: #### L 100.0100 ####[facility] [address] [place], [address] Erythrocyte distribution width (RBC) [Ratio] 13.2 % Normal 11.6-14.6 [facility] Comment on above: Order Comment: REDRA W. PREVIOUS SPECIMEN REJECTED DUE TOCLOTTED. 10/27/2427 Hermilo R Law. Performed By: #### L 100.0100 ####[facility] [address] [place], [address] Hematocrit (Bld) [Volume fraction] 41.6 % Normal 40-54 [facility] Comment on above: Order Comment: REDRA W. PREVIOUS SPECIMEN REJECTED DUE TOCLOTTED. 10/27/2427 Hermilo R Law. Performed By: #### L 100.0100 ####[facility] [address] [place], [address] Hemoglobin (Bld) [Mass/Vol] 13.3 g/dL Normal 13.0-16.5 [facility] Comment on above: Order Comment: REDRA W. PREVIOUS SPECIMEN REJECTED DUE TOCLOTTED. 10/27/2427 Hermilo R Law. Performed By: #### L 100.0100 ####[facility] [address] [place], [address] IG% 0.400 Normal 0.0-0.9 [facility] Comment on above: Order Comment: REDRA W. PREVIOUS SPECIMEN REJECTED DUE TOCLOTTED. 10/27/2427 Hermilo R Law. Result Comment: IG% - Immature Granulocytes (promyelocytes, myelocytes andmetamyelocytes) > 1% indicates that a LEFT SHIFT is Present. Performed By: #### L 100.0100 ####[facility] [address] [place], [address] Lymphocytes/100 WBC (Bld) 14.2 % Low 19-41 [facility] Comment on above: Order Comment: REDRA W. PREVIOUS SPECIMEN REJECTED DUE TOCLOTTED. 10/27/2427 Hermilo R Law. Performed By: #### L 100.0100 ####[facility] [address] [place], [address] MCH (RBC) [Entitic mass] 30.2 pg Normal 27.0-32.0 [facility] Comment on above: Order Comment: REDRA W. PREVIOUS SPECIMEN REJECTED DUE TOCLOTTED. 10/27/2427 Hermilo R Law. Performed By: #### L 100.0100 ####[facility] [address] [place], [address] MCHC (RBC) [Mass/Vol] 32.0 g/dL Normal 32-36 [facility] Comment on above: Order Comment: REDRA W. PREVIOUS SPECIMEN REJECTED DUE TOCLOTTED. 10/27/2427 Hermilo R Law. Performed By: #### L 100.0100 ####[facility] [address] [place], [address] MCV (RBC) [Entitic vol] 94.5 fL High 80-94 [facility] Comment on above: Order Comment: REDRA W. PREVIOUS SPECIMEN REJECTED DUE TOCLOTTED. 10/27/2427 Hermilo R Law. Performed By: #### L 100.0100 ####[facility] [address] [place], [address] Monocytes/100 WBC (Bld) 4.0 % Normal 0-10 [facility] Comment on above: Order Comment: REDRA W. PREVIOUS SPECIMEN REJECTED DUE TOCLOTTED. 10/27/2427 Hermilo R Law. Performed By: #### L 100.0100 ####[facility] [address] [place], [address] Neutrophils/100 WBC (Bld) 78.9 % High 47-70 [facility] Comment on above: Order Comment: REDRA W. PREVIOUS SPECIMEN REJECTED DUE TOCLOTTED. 10/27/2427 Hermilo R Law. Performed By: #### L 100.0100 ####[facility] [address] [place], [address] Nucleated RBC (Bld) [#/Vol] 0 10*3/uL Normal 0-5 [facility] Comment on above: Order Comment: REDRA W. PREVIOUS SPECIMEN REJECTED DUE TOCLOTTED. 10/27/2427 Hermilo R Law. Performed By: #### L 100.0100 ####[facility] [address] [place], [address] Platelet mean volume (Bld) [Entitic vol] 9.6 fL Normal 6.2-12.0 [facility] Comment on above: Order Comment: REDRA W. PREVIOUS SPECIMEN REJECTED DUE TOCLOTTED. 10/27/2427 Hermilo R Law. Performed By: #### L 100.0100 ####[facility] [address] [place], [address] Platelets (Bld) [#/Vol] 245 10*3/uL Normal 150-450 [facility] Comment on above: Order Comment: REDRA W. PREVIOUS SPECIMEN REJECTED DUE TOCLOTTED. 10/27/2427 Hermilo R Law. Performed By: #### L 100.0100 ####[facility] [address] [place], [address] RBC (Bld) [#/Vol] 4.40 10*6/uL Low 4.6-6.2 [facility] Comment on above: Order Comment: REDRA W. PREVIOUS SPECIMEN REJECTED DUE TOCLOTTED. 10/27/2427 Hermilo R Law. Performed By: #### L 100.0100 ####[facility] [address] [place], [address] RDW SD 46.2 fl High 35.1-43.9 [facility] Comment on above: Order Comment: REDRA W. PREVIOUS SPECIMEN REJECTED DUE TOCLOTTED. 10/27/2427 Hermilo R Law. Performed By: #### L 100.0100 ####[facility] [address] [place], [address] WBC (Bld) [#/Vol] 6.7 10*3/uL Normal 4.4-11.0 [facility] Comment on above: Order Comment: REDRA W. PREVIOUS SPECIMEN REJECTED DUE TOCLOTTED. 10/27/2427 Hermilo R Law. Performed By: #### L 100.0100 ####[facility] [address] [place], [address] Absolute Neut Normal 2.0-7.7 [facility] Comment on above: Result Comment: This specimen has been REJECTED due to Laboratory criteria:Clotted.SHUFF2 has been notified of need of recollection.10/27/2426 Hermilo R Law Performed By: #### L 100.0100, L500.2500, L503.6005, L500.3400, L501.2450, L501.5200 ####[facility] [address] [place], [address] HCT Normal 40-54 [facility] Comment on above: Result Comment: This specimen has been REJECTED due to Laboratory criteria:Clotted.SHUFF2 has been notified of need of recollection.10/27/2426 Hermilo R Law Performed By: #### L 100.0100, L500.2500, L503.6005, L500.3400, L501.2450, L501.5200 ####[facility] [address] [place], [address] HGB Normal 13.0-16.5 [facility] Comment on above: Result Comment: This specimen has been REJECTED due to Laboratory criteria:Clotted.SHUFF2 has been notified of need of recollection.10/27/2426 Hermilo R Law Performed By: #### L 100.0100, L500.2500, L503.6005, L500.3400, L501.2450, L501.5200 ####[facility] [address] [place], [address] MCH Normal 27.0-32.0 [facility] Comment on above: Result Comment: This specimen has been REJECTED due to Laboratory criteria:Clotted.SHUFF2 has been notified of need of recollection.10/27/2426 Hermilo R Law Performed By: #### L 100.0100, L500.2500, L503.6005, L500.3400, L501.2450, L501.5200 ####[facility] [address] [place], [address] MCHC Normal 32-36 [facility] Comment on above: Result Comment: This specimen has been REJECTED due to Laboratory criteria:Clotted.SHUFF2 has been notified of need of recollection.10/27/2426 Hermilo R Law Performed By: #### L 100.0100, L500.2500, L503.6005, L500.3400, L501.2450, L501.5200 ####[facility] [address] [place], [address] MCV Normal 80-94 [facility] Comment on above: Result Comment: This specimen has been REJECTED due to Laboratory criteria:Clotted.SHUFF2 has been notified of need of recollection.10/27/2426 Hermilo R Law Performed By: #### L 100.0100, L500.2500, L503.6005, L500.3400, L501.2450, L501.5200 ####[facility] [address] [place], [address] NEUT% Normal 47-70 [facility] Comment on above: Result Comment: This specimen has been REJECTED due to Laboratory criteria:Clotted.SHUFF2 has been notified of need of recollection.10/27/2426 Hermilo R Law Performed By: #### L 100.0100, L500.2500, L503.6005, L500.3400, L501.2450, L501.5200 ####[facility] [address] [place], [address] PLT Normal 150-450 [facility] Comment on above: Result Comment: This specimen has been REJECTED due to Laboratory criteria:Clotted.SHUFF2 has been notified of need of recollection.10/27/2426 Hermilo R Law Performed By: #### L 100.0100, L500.2500, L503.6005, L500.3400, L501.2450, L501.5200 ####[facility] [address] [place], [address] RBC Normal 4.6-6.2 [facility] Comment on above: Result Comment: This specimen has been REJECTED due to Laboratory criteria:Clotted.SHUFF2 has been notified of need of recollection.10/27/2426 Hermilo R Law Performed By: #### L 100.0100, L500.2500, L503.6005, L500.3400, L501.2450, L501.5200 ####[facility] [address] [place], [address] RDW CV Normal 11.6-14.6 [facility] Comment on above: Result Comment: This specimen has been REJECTED due to Laboratory criteria:Clotted.SHUFF2 has been notified of need of recollection.10/27/2426 Hermilo R Law Performed By: #### L 100.0100, L500.2500, L503.6005, L500.3400, L501.2450, L501.5200 ####[facility] [address] [place], [address] RDW SD Normal 35.1-43.9 [facility] Comment on above: Result Comment: This specimen has been REJECTED due to Laboratory criteria:Clotted.SHUFF2 has been notified of need of recollection.10/27/2426 Hermilo R Law Performed By: #### L 100.0100, L500.2500, L503.6005, L500.3400, L501.2450, L501.5200 ####[facility] [address] [place], [address] WBC Normal 4.4-11.0 [facility] Comment on above: Result Comment: This specimen has been REJECTED due to Laboratory criteria:Clotted.SHUFF2 has been notified of need of recollection.10/27/2426 Hermilo R Alw Performed By: #### L 100.0100, L500.2500, L503.6005, L500.3400, L501.2450, L501.5200 ####[facility] [address] [place], [address] CO2 (BldV) [Moles/Vol]Ordere d By: Bronson Tolentino on 10-27-2024 CO2 [Moles/Vol] 29 mmol/L 23-33 [facility] Carbon dioxide, total [Moles /volume] in Central venous bloodOrdered By: Bronson Tolentino on 10-27-2024 CO2 [Moles/Vol] 20.9 mmol/L Low 21.0-32.0 [facility] Chloride assayOrdered By: Aaliyah Tolentino on 10-27-2024 Chloride [Moles/Vol] 98 mmol/L 98-108 [facility] Emergency Department Summary on 10-27-2024 Emergency Department Summary Normal [facility] Eosinophil percentageOrdered By: Magaly Abdi on 10-27-2024 Eosinophils/100 WBC (Bld) 2.2 % 0-5 [facility] Erythrocyte distribution wid th ratioOrdered By: Magaly Abdi on 10-27-2024 Erythrocyte distribution width (RBC) [Ratio] 13.2 % 11.6-14.6 [facility] Erythrocyte distribution wid th standard deviationOrdered By: Magaly Abdi on 10-27-2024 Erythrocyte distribution width (RBC) [Ratio] 46.2 fl High 35.1-43.9 [facility] Glomerular filtration rate ( GFR) estimation/1.73 sq m using serum, plasma, or whole bOrdered By: Bronson Tolentino on 10-27-2024 GFR/1.73 sq M.predicted among non-blacks MDRD (S/P/Bld) [Vol rate/Area] 85 mL/min/{1.73_m2} >60 [facility] Hematocrit Auto (Bld) [Volum e fraction]Ordered By: Magaly Abdi on 10-27-2024 Hematocrit (Bld) [Volume fraction] 41.6 % 40-54 [facility] Hemoglobin measurementOrdere d By: Magaly Abdi on 10-27-2024 Hemoglobin (Bld) [Mass/Vol] 13.3 g/dL 13.0-16.5 [facility] Immature granulocytes/100 WB C Auto (Bld)Ordered By: Magaly Abdi on 10-27-2024 Immature granulocytes/100 WBC (Bld) 0.400 % 0.0-0.9 [facility] Ketones Test strip Ql (U)Ord ered By: Bronson Tolentino on 10-27-2024 Ketones Ql (U) Negative Negative [facility] Lactic Acidon 10-27-2024 Lactate [Moles/Vol] 1.4 mmol/L Normal 0.0-2.0 [facility] Comment on above: Order Comment: Y Performed By: #### L 100.0100, L500.2500, L503.6005, L500.3400, L501.2450, L501.5200 ####[facility] [address] [place], [address] Lipaseon 10-27-2024 Lipase [Catalytic activity/Vol] 37 U/L Normal 13-75 [facility] Comment on above: Result Comment: Gissell graf note:LIPASE revised reference range effective 22.New Lipase methodology. Expected to produce lower valuesthan the previous assay method.NEW Reference Range: 13 - 75 U/L Performed By: #### L 100.0100, L500.2500, L503.6005, L500.3400, L501.2450, L501.5200 ####[facility] [address] [place], [address] Liver Profileon 10-27-2024 Albumin [Mass/Vol] 3.5 g/dL Normal 3.4-4.8 [facility] Comment on above: Performed By: #### L 100.0100, L500.2500, L503.6005, L500.3400, L501.2450, L501.5200 ####[facility] [address] [place], [address] ALK PHOS 97 U/L Normal 40-129 [facility] Comment on above: Performed By: #### L 100.0100, L500.2500, L503.6005, L500.3400, L501.2450, L501.5200 ####[facility] [address] [place], [address] ALT [Catalytic activity/Vol] 23 U/L Normal <=46 [facility] Comment on above: Result Comment: Hemo lysis present, Results??could be affected.?? Performed By: #### L 100.0100, L500.2500, L503.6005, L500.3400, L501.2450, L501.5200 ####[facility] [address] [place], [address] AST [Catalytic activity/Vol] 44 U/L High <=37 [facility] Comment on above: Result Comment: Hemo lysis present, Results??could be affected.?? Performed By: #### L 100.0100, L500.2500, L503.6005, L500.3400, L501.2450, L501.5200 ####[facility] [address] [place], [address] Bilirubin [Mass/Vol] 0.99 mg/dL Normal 0.00-1.30 [facility] Comment on above: Performed By: #### L 100.0100, L500.2500, L503.6005, L500.3400, L501.2450, L501.5200 ####[facility] [address] [place], [address] Bilirubin.direct [Mass/Vol] 0.17 mg/dL Normal 0.00-0.30 [facility] Comment on above: Result Comment: Hemo lysis present, Results??could be affected.?? Performed By: #### L 100.0100, L500.2500, L503.6005, L500.3400, L501.2450, L501.5200 ####[facility] [address] [place], [address] Globulin (S) [Mass/Vol] 3.1 g/dL Normal 2.2-4.2 [facility] Comment on above: Performed By: #### L 100.0100, L500.2500, L503.6005, L500.3400, L501.2450, L501.5200 ####[facility] [address] [place], [address] T PROT 6.6 g/dL Normal 5.9-8.4 [facility] Comment on above: Performed By: #### L 100.0100, L500.2500, L503.6005, L500.3400, L501.2450, L501.5200 ####[facility] [address] [place], [address] MCV (mean corpuscular volume ) determinationOrdered By: Magaly Abdi on 10-27-2024 MCV (RBC) [Entitic vol] 94.5 fL High 80-94 [facility] Magnesiumon 07-24-2025 Magnesium [Mass/Vol] 1.7 mg/dL Normal 1.5-2.2 [facility] Comment on above: Performed By: #### L 100.0100, L500.2500, L503.6005, L500.3400, L501.2450, L501.5200 ####[facility] [address] [place], [address] Magnesium measurement (mass/ volume)Ordered By: Bronson Tolentino on 10-27-2024 Magnesium (Unsp spec) [Mass/Vol] 1.7 mg/dL 1.5-2.2 [facility] Mean corpuscular hemoglobin (MCH) determinationOrdered By: Magaly Abdi on 10-27-2024 MCH (RBC) [Entitic mass] 30.2 pg 27.0-32.0 [facility] Monocyte percentageOrdered B y: Magaly Abdi on 10-27-2024 Monocytes/100 WBC (Bld) 4.0 % 0-10 [facility] Mucus LM Ql (Urine sed)Order ed By: Bronson Tolentino on 10-27-2024 Mucus Ql (Urine sed) 0 SEEN /hpf [facility] Neutrophil percentageOrdered By: Magaly Abdi on 10-27-2024 Neutrophils/100 WBC (Bld) 78.9 % High 47-70 [facility] Nitrite Test strip Ql (U)Ord ered By: Bronson Tolentino on 10-27-2024 Nitrite Ql (U) Negative Negative [facility] No Panel InformationOrdered By: Bronson Tolentino on 10-27-2024 NADINE [facility] Not entered [facility] 44 U/L High <38 [facility] Platelet countOrdered By: Debra Abdi on 10-27-2024 Platelets (Bld) [#/Vol] 245 10*3/uL 150-450 [facility] Potassium measurement (mass/ volume)Ordered By: Bronson Tolentino on 10-27-2024 Potassium (Unsp spec) [Mass/Vol] 4.2 mmol/L 3.3-5.1 [facility] Protein Test strip Ql (U)Ord ered By: Bronson Tolentino on 10-27-2024 Protein Ql (U) 30 mg/dl High Negative [facility] RBC Auto (Bld) [#/Vol]Ordere d By: Magaly Abdi on 10-27-2024 RBC (Bld) [#/Vol] 4.40 10*6/uL Low 4.6-6.2 [facility] Serum creatinine measurement (mass/volume)Ordered By: Bronson Tolentino on 10-27-2024 Creatinine [Mass/Vol] 0.99 mg/dL 0.70-1.20 [facility] Serum globulin measurementOr dered By: Bronson Tolentino on 10-27-2024 Globulin (S) [Mass/Vol] 3.1 g/dL 2.2-4.2 [facility] Serum glucose measurement (m ass/volume)Ordered By: Bronson Tolentino on 10-27-2024 Glucose [Mass/Vol] 203 mg/dL High 70-99 [facility] Serum or plasma alanine martino otransferase (ALT) measurementOrdered By: Bronson Tolentino on 10-27-2024 ALT [Catalytic activity/Vol] 23 U/L <47 [facility] Serum or plasma albumin brenda urement (mass/volume)Ordered By: Bronson Tolentino on 10-27-2024 Albumin [Mass/Vol] 3.5 g/dL 3.4-4.8 [facility] Serum or plasma alkaline yulia sphatase measurementOrdered By: Bronson Tolentino on 10-27-2024 ALP [Catalytic activity/Vol] 97 U/L 40-129 [facility] Serum or plasma calcium brenda urement (mass/volume)Ordered By: Bronson Tolentino on 10-27-2024 Calcium [Mass/Vol] 8.8 mg/dL 7.6-11.0 [facility] Serum or plasma urea nitroge n measurement (mass/volume)Ordered By: Bronson Tolentino on 10-27-2024 Urea nitrogen [Mass/Vol] 18 mg/dL 4-19 [facility] Sodium levelOrdered By: Roberto Tolentino on 10-27-2024 Sodium [Moles/Vol] 132 mmol/L Low 133-145 [facility] Squamous epithelial cells de tection in urine sediment by light microscopyOrdered By: Bronson Tolentino on 10-27-2024 Epithelial cells.squamous LM Ql (Urine sed) 0 SEEN /hpf 0-5 [facility] Total proteinOrdered By: Renato Tolentino on 10-27-2024 Protein [Mass/Vol] 6.6 g/dL 5.9-8.4 [facility] Urinalysis, Completeon 10-27 WBC 0-5 SEEN Normal 0-5 [facility] Comment on above: Order Comment: ARINA CTOR TO SPECIFY Performed By: #### L 400.0001 ####[facility] [address] [place], [address] BACTERIA 0 SEEN Normal None Seen [facility] Comment on above: Order Comment: ARINA CTOR TO SPECIFY Performed By: #### L 400.0001 ####[facility] [address] [place], [address] EPI,SQUAMOUS 0 SEEN Normal 0-5 [facility] Comment on above: Order Comment: ARINA CTOR TO SPECIFY Performed By: #### L 400.0001 ####[facility] [address] [place], [address] Mucus Ql (Urine sed) 0 SEEN Normal [facility] Comment on above: Order Comment: ARINA CTOR TO SPECIFY Performed By: #### L 400.0001 ####[facility] [address] [place], [address] RBC 0 SEEN Normal 0-[address] [place] [address] Comment on above: Order Comment: ARINA CTOR TO SPECIFY Performed By: #### L 400.0001 ####[facility] [address] [place], [address] Urine clarityOrdered By: Renato Tolentino on 10-27-2024 Clarity (U) Clear Clear [facility] Urine color determinationOrd ered By: Bronson Tolentino on 10-27-2024 Color (U) Yellow Yellow [facility] Urine glucose detectionOrder ed By: Bronson Tolentino on 10-27-2024 Glucose Ql (U) 50 mg/dl High Normal [facility] Urine leukocyte esterase det ection by dipstickOrdered By: Bronson Tolentino on 10-27-2024 Leukocyte esterase Test strip Ql (U) 100 /ul High Negative [facility] Urine pHOrdered By: Bronson lopez on 10-27-2024 pH (U) 6.0 [pH] 5.0 - 8.0 [facility] Urine sediment bacteria coun t by microscopy (number/high power field)Ordered By: Bronson Tolentino on 10-27-2024 Bacteria LM.HPF (Urine sed) [#/Area] 0 /[HPF] None Seen [facility] Urine specific gravity measu rementOrdered By: Bronson Tolentino on 10-27-2024 Specific gravity (U) [Rel density] 1.020 1.002-1.03 0 [facility] Urine urobilinogen measureme ntOrdered By: Bronson Tolentino on 10-27-2024 Urobilinogen Ql (U) 1 mg/dl High Normal [facility] Venous Blood Gason 5 Blood Gas Type NADINE [facility] Comment on above: Performed By: #### L 9000.0810 ####[facility] [address] [place], [address] CO2 [Moles/Vol] 29 mmol/L Normal 23-33 [facility] Comment on above: Performed By: #### L 9000.0810 ####[facility] [address] [place], [address] HCO3 (Bld) [Moles/Vol] 28 mmol/L High 22-26 [facility] Comment on above: Performed By: #### L 9000.0810 ####[facility] [address] [place], [address] O2 Delivery Dev Not entered [facility] Comment on above: Performed By: #### L 9000.0810 ####[facility] [address] [place], [address] SITE Not entered [facility] Comment on above: Performed By: #### L 9000.0810 ####[facility] [address] [place], [address] VBG BE 3 mmol/L Normal -1.0-3.5 [facility] Comment on above: Performed By: #### L 9000.0810 ####[facility] [address] [place], [address] VBG pCO2 41.9 mmHg Normal 41-51 [facility] Comment on above: Performed By: #### L 9000.0810 ####[facility] [address] [place], [address] VBG pH 7.43 High 7.32-7.42 [facility] Comment on above: Performed By: #### L 9000.0810 ####[facility] [address] [place], [address] VBG PO2 30 mmHg Normal 25-40 [facility] Comment on above: Performed By: #### L 9000.0810 ####[facility] [address] [place], [address] VBG SO2 59 Normal 50-70 [facility] Comment on above: Performed By: #### L 9000.0810 ####[facility] [address] [place], [address] Blood Gas Type NADINE Normal [facility] Comment on above: Performed By: #### L 9000.0810 ####[facility] [address] [place], [address] CO2 [Moles/Vol] 22 mmol/L Low 23-33 [facility] Comment on above: Performed By: #### L 9000.0810 ####[facility] [address] [place], [address] HCO3 (Bld) [Moles/Vol] 21 mmol/L Low 22-26 [facility] Comment on above: Performed By: #### L 9000.0810 ####[facility] [address] [place], [address] O2 Delivery Dev Not entered Normal [facility] Comment on above: Performed By: #### L 9000.0810 ####[facility] [address] [place], [address] SITE Not entered Normal [facility] Comment on above: Performed By: #### L 9000.0810 ####[facility] [address] [place], [address] VBG BE -1 mmol/L Normal -1.0-3.5 [facility] Comment on above: Performed By: #### L 9000.0810 ####[facility] [address] [place], [address] VBG pCO2 23.3 mmHg Low 41-51 [facility] Comment on above: Performed By: #### L 9000.0810 ####[facility] [address] [place], [address] VBG pH 7.57 High 7.32-7.42 [facility] Comment on above: Performed By: #### L 9000.0810 ####[facility] [address] [place], [address] VBG PO2 224 mmHg High 25-40 [facility] Comment on above: Performed By: #### L 9000.0810 ####[facility] [address] [place], [address] VBG SO2 100 High 50-70 [facility] Comment on above: Performed By: #### L 9000.0810 ####[facility] [address] [place], [address] Venous blood base excess asia surementOrdered By: Bronson Tolentino on 10-27-2024 Base excess Calc (BldV) [Moles/Vol] 3 mmol/L -1.0-3.5 [facility] Venous blood bicarbonate asia surementOrdered By: Bronson Tolentino on 10-27-2024 HCO3 (Bld) [Moles/Vol] 28 mmol/L High 22-26 [facility] Venous blood pH measurementO rdered By: Bronson Tolentino on 10-27-2024 pH (BldV) 7.43 [pH] High 7.32-7.42 [facility] Venous blood partial pressur e of carbon dioxide measurementOrdered By: Bronson Tolentino on 10-27-2024 CO2 (BldV) [Partial pressure] 41.9 mm[Hg] 41-51 [facility] Venous blood partial pressur e of oxygen measurementOrdered By: Bronson Tolentino on 10-27-2024 Oxygen (BldV) [Partial pressure] 30 mm[Hg] 25-40 [facility] White blood cell (WBC) count Ordered By: Magaly Abdi on 10-27-2024 WBC (Bld) [#/Vol] 6.7 10*3/uL 4.4-11.0 [facility] White blood cell countOrdere d By: Bronson Tolentino on 10-27-2024 White blood cell count 0-5 SEEN /hpf 0-5 [facility] Bedside Glucoseon 10-26-2024 FINGERSTICK GLU 194 mg/dL High 74-106 [facility] Comment on above: Result Comment: SNEHA DUNCAN OF PATIENT CARE PER NURSING PROTOCOL Performed By: #### L 501.080 ####[facility] [address] [place], [place], [address] Chest PA and Lateralon 10-26 Chest PA and Lateral Normal [facility] Glucose measurement at bedsi deOrdered By: Bronson Tolentino on 10-26-2024 Glucose [Mass/Vol] 194 mg/dL High 74-106 [facility] Absolute lymphocyte countOrd ered By: Devin Curry on 10-23-2024 Lymphocytes Auto (Unsp spec) [#/Vol] 1.48 10*3/uL 0.83-4.51 [facility] Anion gap in Serum or Plasma Ordered By: Devin Curry on 10-23-2024 Anion gap [Moles/Vol] 12 mmol/L 5-15 [facility] Automated lymphocyte count a s percentage of total leukocytesOrdered By: Devin Curry on 10-23-2024 Lymphocytes/100 WBC Auto (Unsp spec) 21.6 % [facility] BUN/creatinine ratioOrdered By: Devin Curry on 10-23-2024 Urea nitrogen/Creatinine [Mass ratio] 18.2 mg/mg 01-23 [facility] Basic Metabolic Profile (BMP )on 10-23-2024 BUN/CRE 18.2 RATIO Normal 01-23 [facility] Comment on above: Performed By: #### L 100.0100, L500.2500 ####[facility] [address] [place], [address] Calcium [Mass/Vol] 9.3 mg/dL Normal 7.6-11.0 [facility] Comment on above: Performed By: #### L 100.0100, L500.2500 ####[facility] [address] [place], [address] Chloride [Moles/Vol] 100 mmol/L Normal 98-108 [facility] Comment on above: Performed By: #### L 100.0100, L500.2500 ####[facility] [address] [place], [address] CO2 [Moles/Vol] 26.0 mmol/L Normal 21.0-32.0 [facility] Comment on above: Performed By: #### L 100.0100, L500.2500 ####[facility] [address] [place], [address] Creatinine [Mass/Vol] 1.00 mg/dL Normal 0.70-1.20 [facility] Comment on above: Performed By: #### L 100.0100, L500.2500 ####[facility] [address] [place], [address] ECRCL 89.11 ml/min Normal 50-250 [facility] Comment on above: Performed By: #### L 100.0100, L500.2500 ####[facility] [address] [place], [address] GAP 12 Normal 5-15 [facility] Comment on above: Performed By: #### L 100.0100, L500.2500 ####[facility] [address] [place], [address] GFR/1.73 sq M.predicted among non-blacks MDRD (S/P/Bld) [Vol rate/Area] 84 mL/min/{1.73_m2} Normal >60 [facility] Comment on above: Result Comment: mL/m in/1.73m2 CKD-EPI Creatinine Equation (2020) Performed By: #### L 100.0100, L500.2500 ####[facility] [address] [place], [address] Glucose [Mass/Vol] 256 mg/dL High 70-99 [facility] Comment on above: Performed By: #### L 100.0100, L500.2500 ####[facility] [address] [place], [address] Potassium [Moles/Vol] 3.9 mmol/L Normal 3.3-5.1 [facility] Comment on above: Performed By: #### L 100.0100, L500.2500 ####[facility] [address] [place], [address] Sodium [Moles/Vol] 138 mmol/L Normal 133-145 [facility] Comment on above: Performed By: #### L 100.0100, L500.2500 ####[facility] [address] [place], [address] Urea nitrogen [Mass/Vol] 18 mg/dL Normal 4-19 [facility] Comment on above: Performed By: #### L 100.0100, L500.2500 ####[facility] [address] [place], [address] Basophil percentageOrdered B y: Devin Curry on 10-23-2024 Basophils/100 WBC (Bld) 0.3 % 0-1 [facility] CBC W/Diff, Automatedon 10-05-2024 Absolute Lymph 1.48 X10 3/uL Normal 0.83-4.51 [facility] Comment on above: Performed By: #### L 100.0100, L500.2500 ####[facility] [address] [place], [address] Absolute Neut 4.7 X10 3/uL Normal 2.0-7.7 [facility] Comment on above: Performed By: #### L 100.0100, L500.2500 ####[facility] [address] [place], [address] Basophils/100 WBC (Bld) 0.3 % Normal 0-1 [facility] Comment on above: Performed By: #### L 100.0100, L500.2500 ####[facility] [address] [place], [address] Eosinophils/100 WBC (Bld) 3.4 % Normal 0-5 [facility] Comment on above: Performed By: #### L 100.0100, L500.2500 ####[facility] [address] [place], [address] Erythrocyte distribution width (RBC) [Ratio] 12.8 % Normal 11.6-14.6 [facility] Comment on above: Performed By: #### L 100.0100, L500.2500 ####[facility] [address] [place], [address] Hematocrit (Bld) [Volume fraction] 42.4 % Normal 40-54 [facility] Comment on above: Performed By: #### L 100.0100, L500.2500 ####[facility] [address] [place], [address] Hemoglobin (Bld) [Mass/Vol] 14.0 g/dL Normal 13.0-16.5 [facility] Comment on above: Performed By: #### L 100.0100, L500.2500 ####[facility] [address] [place], [address] IG% 0.100 Normal 0.0-0.9 [facility] Comment on above: Result Comment: IG% - Immature Granulocytes (promyelocytes, myelocytes andmetamyelocytes) > 1% indicates that a LEFT SHIFT is Present. Performed By: #### L 100.0100, L500.2500 ####[facility] [address] [place], [address] Lymphocytes/100 WBC (Bld) 21.6 % Normal 19-41 [facility] Comment on above: Performed By: #### L 100.0100, L500.2500 ####[facility] [address] [place], [address] MCH (RBC) [Entitic mass] 30.8 pg Normal 27.0-32.0 [facility] Comment on above: Performed By: #### L 100.0100, L500.2500 ####[facility] [address] [place], [address] MCHC (RBC) [Mass/Vol] 33.0 g/dL Normal 32-36 [facility] Comment on above: Performed By: #### L 100.0100, L500.2500 ####[facility] [address] [place], [address] MCV (RBC) [Entitic vol] 93.2 fL Normal 80-94 [facility] Comment on above: Performed By: #### L 100.0100, L500.2500 ####[facility] [address] [place], [address] Monocytes/100 WBC (Bld) 6.1 % Normal 0-10 [facility] Comment on above: Performed By: #### L 100.0100, L500.2500 ####[facility] [address] [place], [address] Neutrophils/100 WBC (Bld) 68.5 % Normal 47-70 [facility] Comment on above: Performed By: #### L 100.0100, L500.2500 ####[facility] [address] [place], [address] Nucleated RBC (Bld) [#/Vol] 0 10*3/uL Normal 0-5 [facility] Comment on above: Performed By: #### L 100.0100, L500.2500 ####[facility] [address] [place], [address] Platelet mean volume (Bld) [Entitic vol] 10.0 fL Normal 6.2-12.0 [facility] Comment on above: Performed By: #### L 100.0100, L500.2500 ####[facility] [address] [place], [address] Platelets (Bld) [#/Vol] 255 10*3/uL Normal 150-450 [facility] Comment on above: Performed By: #### L 100.0100, L500.2500 ####[facility] [address] [place], [address] RBC (Bld) [#/Vol] 4.55 10*6/uL Low 4.6-6.2 [facility] Comment on above: Performed By: #### L 100.0100, L500.2500 ####[facility] [address] [place], [address] RDW SD 43.9 fl Normal 35.1-43.9 [facility] Comment on above: Performed By: #### L 100.0100, L500.2500 ####[facility] [address] [place], [address] WBC (Bld) [#/Vol] 6.9 10*3/uL Normal 4.4-11.0 [facility] Comment on above: Performed By: #### L 100.0100, L500.2500 ####[facility] [address] [place], [address] Carbon dioxide, total [Moles /volume] in Central venous bloodOrdered By: Devin Curry on 10-23-2024 CO2 [Moles/Vol] 26.0 mmol/L 21.0-32.0 [facility] Chloride assayOrdered By: Davian Curry on 10-23-2024 Chloride [Moles/Vol] 100 mmol/L 98-108 [facility] Emergency Department Summary on 10-23-2024 Emergency Department Summary Normal [facility] Eosinophil percentageOrdered By: Devin Curry on 10-23-2024 Eosinophils/100 WBC (Bld) 3.4 % 0-5 [facility] Erythrocyte distribution wid th ratioOrdered By: Devin Curry on 10-23-2024 Erythrocyte distribution width (RBC) [Ratio] 12.8 % 11.6-14.6 [facility] Erythrocyte distribution wid th standard deviationOrdered By: Devin Curry on 10-23-2024 Erythrocyte distribution width (RBC) [Ratio] 43.9 fl 35.1-43.9 [facility] Glomerular filtration rate ( GFR) estimation/1.73 sq m using serum, plasma, or whole bOrdered By: Devin Curry on 10-23-2024 GFR/1.73 sq M.predicted among non-blacks MDRD (S/P/Bld) [Vol rate/Area] 84 mL/min/{1.73_m2} >60 [facility] Hematocrit Auto (Bld) [Volum e fraction]Ordered By: Devin Curry on 10-23-2024 Hematocrit (Bld) [Volume fraction] 42.4 % 40-54 [facility] Hemoglobin measurementOrdere d By: Devin Curry on 10-23-2024 Hemoglobin (Bld) [Mass/Vol] 14.0 g/dL 13.0-16.5 [facility] Immature granulocytes/100 WB C Auto (Bld)Ordered By: Devin Curry on 10-23-2024 Immature granulocytes/100 WBC (Bld) 0.100 % 0.0-0.9 [facility] MCV (mean corpuscular volume ) determinationOrdered By: Devin Curry on 10-23-2024 MCV (RBC) [Entitic vol] 93.2 fL 80-94 [facility] Mean corpuscular hemoglobin (MCH) determinationOrdered By: Devin Curry on 10-23-2024 MCH (RBC) [Entitic mass] 30.8 pg 27.0-32.0 [facility] Monocyte percentageOrdered B y: Devin Curry on 10-23-2024 Monocytes/100 WBC (Bld) 6.1 % 0-10 [facility] Neutrophil percentageOrdered By: Devin Curry on 10-23-2024 Neutrophils/100 WBC (Bld) 68.5 % 47-70 [facility] Platelet countOrdered By: Davian Curry on 10-23-2024 Platelets (Bld) [#/Vol] 255 10*3/uL 150-450 [facility] Potassium measurement (mass/ volume)Ordered By: Devin Curry on 10-23-2024 Potassium (Unsp spec) [Mass/Vol] 3.9 mmol/L 3.3-5.1 [facility] RBC Auto (Bld) [#/Vol]Ordere d By: Devin Curry on 10-23-2024 RBC (Bld) [#/Vol] 4.55 10*6/uL Low 4.6-6.2 [facility] Serum creatinine measurement (mass/volume)Ordered By: Devin Curry on 10-23-2024 Creatinine [Mass/Vol] 1.00 mg/dL 0.70-1.20 [facility] Serum glucose measurement (m ass/volume)Ordered By: Devin Curry on 10-23-2024 Glucose [Mass/Vol] 256 mg/dL High 70-99 [facility] Serum or plasma calcium brenda urement (mass/volume)Ordered By: Devin Curry on 10-23-2024 Calcium [Mass/Vol] 9.3 mg/dL 7.6-11.0 [facility] Serum or plasma urea nitroge n measurement (mass/volume)Ordered By: Devin Curry on 10-23-2024 Urea nitrogen [Mass/Vol] 18 mg/dL 4- [facility] Sodium levelOrdered By: Devin Curry on 10-23-2024 Sodium [Moles/Vol] 138 mmol/L 133-145 [facility] White blood cell (WBC) count Ordered By: Devin Curry on 10-23-2024 WBC (Bld) [#/Vol] 6.9 10*3/uL 4.4-11.0 [facility] Emergency Department Summary on 10-21-2024 Emergency Department Summary Normal [facility] Absolute lymphocyte countOrd ered By: Valentín Miller on 10-19-2024 Lymphocytes Auto (Unsp spec) [#/Vol] 1.65 10*3/uL 0.83-4.51 [facility] Anion gap in Serum or Plasma Ordered By: Valentín Miller on 10-19-2024 Anion gap [Moles/Vol] 13 mmol/L 5- [facility] Automated lymphocyte count a s percentage of total leukocytesOrdered By: Valentín Miller on 10-19-2024 Lymphocytes/100 WBC Auto (Unsp spec) 24.7 % - [facility] BUN/creatinine ratioOrdered By: Valentín Miller on 10-19-2024 Urea nitrogen/Creatinine [Mass ratio] 16.0 mg/mg - [facility] Basic Metabolic Profile (BMP )on 10-19-2024 BUN/CRE 16.0 RATIO Normal 01-23 [facility] Comment on above: Performed By: #### L 100.0100, L500.2500, L503.7505, L501.4021 ####[facility] [address] [place], [address] Calcium [Mass/Vol] 9.2 mg/dL Normal 7.6-11.0 [facility] Comment on above: Performed By: #### L 100.0100, L500.2500, L503.7505, L501.4021 ####[facility] [address] [place], [address] Chloride [Moles/Vol] 98 mmol/L Normal 98-108 [facility] Comment on above: Performed By: #### L 100.0100, L500.2500, L503.7505, L501.4021 ####[facility] [address] [place], [address] CO2 [Moles/Vol] 22.6 mmol/L Normal 21.0-32.0 [facility] Comment on above: Performed By: #### L 100.0100, L500.2500, L503.7505, L501.4021 ####[facility] [address] [place], [address] Creatinine [Mass/Vol] 1.19 mg/dL Normal 0.70-1.20 [facility] Comment on above: Performed By: #### L 100.0100, L500.2500, L503.7505, L501.4021 ####[facility] [address] [place], [address] ECRCL 66.79 ml/min Normal 50-250 [facility] Comment on above: Performed By: #### L 100.0100, L500.2500, L503.7505, L501.4021 ####[facility] [address] [place], [address] GAP 13 Normal 5-15 [facility] Comment on above: Performed By: #### L 100.0100, L500.2500, L503.7505, L501.4021 ####[facility] [address] [place], [address] GFR/1.73 sq M.predicted among non-blacks MDRD (S/P/Bld) [Vol rate/Area] 68 mL/min/{1.73_m2} Normal >60 [facility] Comment on above: Result Comment: mL/m in/1.73m2 CKD-EPI Creatinine Equation (2020) Performed By: #### L 100.0100, L500.2500, L503.7505, L501.4021 ####[facility] [address] [place], [address] Glucose [Mass/Vol] 343 mg/dL High 70-99 [facility] Comment on above: Performed By: #### L 100.0100, L500.2500, L503.7505, L501.4021 ####[facility] [address] [place], [address] Potassium [Moles/Vol] 5.5 mmol/L High 3.3-5.1 [facility] Comment on above: Result Comment: Hemo lysis present, Results??could be affected.??Hemolysis present, Results??could be affected.?? Performed By: #### L 100.0100, L500.2500, L503.7505, L501.4021 ####[facility] [address] [place], [address] Sodium [Moles/Vol] 133 mmol/L Normal 133-145 [facility] Comment on above: Performed By: #### L 100.0100, L500.2500, L503.7505, L501.4021 ####[facility] [address] [place], [address] Urea nitrogen [Mass/Vol] 19 mg/dL Normal 4-19 [facility] Comment on above: Performed By: #### L 100.0100, L500.2500, L503.7505, L501.4021 ####[facility] [address] [place], [address] Basophil percentageOrdered B y: Valentín Miller on 10-19-2024 Basophils/100 WBC (Bld) 0.3 % 0-1 [facility] CBC W/Diff, Automatedon 10-04 Absolute Lymph 1.65 X10 3/uL Normal 0.83-4.51 [facility] Comment on above: Performed By: #### L 100.0100, L500.2500, L503.7505, L501.4021 ####[facility] [address] [place], [address] Absolute Neut 4.4 X10 3/uL Normal 2.0-7.7 [facility] Comment on above: Performed By: #### L 100.0100, L500.2500, L503.7505, L501.4021 ####[facility] [address] [place], [address] Basophils/100 WBC (Bld) 0.3 % Normal 0-1 [facility] Comment on above: Performed By: #### L 100.0100, L500.2500, L503.7505, L501.4021 ####[facility] [address] [place], [address] Eosinophils/100 WBC (Bld) 3.1 % Normal 0-5 [facility] Comment on above: Performed By: #### L 100.0100, L500.2500, L503.7505, L501.4021 ####[facility] [address] [place], [address] Erythrocyte distribution width (RBC) [Ratio] 12.6 % Normal 11.6-14.6 [facility] Comment on above: Performed By: #### L 100.0100, L500.2500, L503.7505, L501.4021 ####[facility] [address] [place], [address] Hematocrit (Bld) [Volume fraction] 40.7 % Normal 40-54 [facility] Comment on above: Performed By: #### L 100.0100, L500.2500, L503.7505, L501.4021 ####[facility] [address] [place], [address] Hemoglobin (Bld) [Mass/Vol] 13.7 g/dL Normal 13.0-16.5 [facility] Comment on above: Performed By: #### L 100.0100, L500.2500, L503.7505, L501.4021 ####[facility] [address] [place], [address] IG% 0.100 Normal 0.0-0.9 [facility] Comment on above: Result Comment: IG% - Immature Granulocytes (promyelocytes, myelocytes andmetamyelocytes) > 1% indicates that a LEFT SHIFT is Present. Performed By: #### L 100.0100, L500.2500, L503.7505, L501.4021 ####[facility] [address] [place], [address] Lymphocytes/100 WBC (Bld) 24.7 % Normal 19-41 [facility] Comment on above: Performed By: #### L 100.0100, L500.2500, L503.7505, L501.4021 ####[facility] [address] [place], [address] MCH (RBC) [Entitic mass] 31.2 pg Normal 27.0-32.0 [facility] Comment on above: Performed By: #### L 100.0100, L500.2500, L503.7505, L501.4021 ####[facility] [address] [place], [address] MCHC (RBC) [Mass/Vol] 33.7 g/dL Normal 32-36 [facility] Comment on above: Performed By: #### L 100.0100, L500.2500, L503.7505, L501.4021 ####[facility] [address] [place], [address] MCV (RBC) [Entitic vol] 92.7 fL Normal 80-94 [facility] Comment on above: Performed By: #### L 100.0100, L500.2500, L503.7505, L501.4021 ####[facility] [address] [place], [address] Monocytes/100 WBC (Bld) 6.1 % Normal 0-10 [facility] Comment on above: Performed By: #### L 100.0100, L500.2500, L503.7505, L501.4021 ####[facility] [address] [place], [address] Neutrophils/100 WBC (Bld) 65.7 % Normal 47-70 [facility] Comment on above: Performed By: #### L 100.0100, L500.2500, L503.7505, L501.4021 ####[facility] [address] [place], [address] Nucleated RBC (Bld) [#/Vol] 0 10*3/uL Normal 0-5 [facility] Comment on above: Performed By: #### L 100.0100, L500.2500, L503.7505, L501.4021 ####[facility] [address] [place], [address] Platelet mean volume (Bld) [Entitic vol] 10.0 fL Normal 6.2-12.0 [facility] Comment on above: Performed By: #### L 100.0100, L500.2500, L503.7505, L501.4021 ####[facility] [address] [place], [address] Platelets (Bld) [#/Vol] 241 10*3/uL Normal 150-450 [facility] Comment on above: Performed By: #### L 100.0100, L500.2500, L503.7505, L501.4021 ####[facility] [address] [place], [address] RBC (Bld) [#/Vol] 4.39 10*6/uL Low 4.6-6.2 [facility] Comment on above: Performed By: #### L 100.0100, L500.2500, L503.7505, L501.4021 ####[facility] [address] [place], [address] RDW SD 43.1 fl Normal 35.1-43.9 [facility] Comment on above: Performed By: #### L 100.0100, L500.2500, L503.7505, L501.4021 ####[facility] [address] [place], [address] WBC (Bld) [#/Vol] 6.7 10*3/uL Normal 4.4-11.0 [facility] Comment on above: Performed By: #### L 100.0100, L500.2500, L503.7505, L501.4021 ####[facility] [address] [place], [address] Carbon dioxide, total [Moles /volume] in Central venous bloodOrdered By: Valentín Miller on 10-19-2024 CO2 [Moles/Vol] 22.6 mmol/L 21.0-32.0 [facility] Chest 1 View (Portable)on Chest 1 View (Portable) Normal [facility] Chloride assayOrdered By: Ana Miller on 10-19-2024 Chloride [Moles/Vol] 98 mmol/L 98-108 [facility] Emergency Department Summary on 10-19-2024 Emergency Department Summary Normal [facility] Eosinophil percentageOrdered By: Valentín Miller on 10-19-2024 Eosinophils/100 WBC (Bld) 3.1 % 0-5 [facility] Erythrocyte distribution wid th ratioOrdered By: Valentín Miller on 10-19-2024 Erythrocyte distribution width (RBC) [Ratio] 12.6 % 11.6-14.6 [facility] Erythrocyte distribution wid th standard deviationOrdered By: Valentín Miller on 10-19-2024 Erythrocyte distribution width (RBC) [Ratio] 43.1 fl 35.1-43.9 [facility] Glomerular filtration rate ( GFR) estimation/1.73 sq m using serum, plasma, or whole bOrdered By: Valentín Miller on 10-19-2024 GFR/1.73 sq M.predicted among non-blacks MDRD (S/P/Bld) [Vol rate/Area] 68 mL/min/{1.73_m2} >60 [facility] Hematocrit Auto (Bld) [Volum e fraction]Ordered By: Valentín Miller on 10-19-2024 Hematocrit (Bld) [Volume fraction] 40.7 % 40-54 [facility] Hemoglobin measurementOrdere d By: Valentín Miller on 10-19-2024 Hemoglobin (Bld) [Mass/Vol] 13.7 g/dL 13.0-16.5 [facility] Immature granulocytes/100 WB C Auto (Bld)Ordered By: Valentín Miller on 10-19-2024 Immature granulocytes/100 WBC (Bld) 0.100 % 0.0-0.9 [facility] Influenza virus A and B and SARS-CoV-2 (COVID-19) and Respiratory syncytial virus RNAOrdered By: Valentín Miller on 10-19-2024 SARS-CoV-2 (COVID-19) RNA HAYDER+probe Ql (Unsp spec) [facility] L499.0042on 10-19-2024 Trop T High Sen 27 ng/L High <=22 [facility] Comment on above: Performed By: #### L 499.0042 ####[facility] [address] [place], [place], [address] L499.0043on 10-19-2024 Trop T High Sen 26 ng/L High <=22 [facility] Comment on above: Performed By: #### L 499.0043 ####[facility] [address] [place], [place], [address] L501.4021on 10-19-2024 Trop T High Sen 25 ng/L High <=22 [facility] Comment on above: Result Comment: Hemo lysis present, Results??could be affected.??Hemolysis present, Results??could be affected.?? Performed By: #### L 100.0100, L500.2500, L503.7505, L501.4021 ####[facility] [address], [address] L503.7505on 10-19-2024 Natriuretic peptide B (Bld) [Mass/Vol] 4100 pg/mL High <=900 [facility] Comment on above: Result Comment: Hear t Failure Unlikely: < 300 pg/mLHeart Failure Likely< 50 Years: > 450 pg/mL50-75 Years: > 900 pg/mL>75 Years: > 1800 pg/mL Performed By: #### L 100.0100, L500.2500, L503.7505, L501.4021 ####[facility] [address], [address] M100.678on 10-19-2024 M100.678 Pending SARS-CoV-2 (COVID 19) Negative INFLUENZA A Negative INFLUENZA B Negative RSV PCR Negative Normal [facility] Comment on above: Performed By: #### M 100.678 ####[facility] [address], [address] MCV (mean corpuscular volume ) determinationOrdered By: Valentín Miller on 10-19-2024 MCV (RBC) [Entitic vol] 92.7 fL 80-94 [facility] Mean corpuscular hemoglobin (MCH) determinationOrdered By: Valentín Miller on 10-19-2024 MCH (RBC) [Entitic mass] 31.2 pg 27.0-32.0 [facility] Monocyte percentageOrdered B y: Valentín Miller on 10-19-2024 Monocytes/100 WBC (Bld) 6.1 % 0-10 [facility] Natriuretic peptide.B prohor parris N-Terminal [Mass/volume] in Serum or PlasmaOrdered By: Valentín Miller on 10-19-2024 Natriuretic peptide.B prohormone N-Terminal [Mass/Vol] 4100 pg/mL High <900 [facility] Neutrophil percentageOrdered By: Valentín Miller on 10-19-2024 Neutrophils/100 WBC (Bld) 65.7 % 47-70 [facility] Platelet countOrdered By: Ana Miller on 10-19-2024 Platelets (Bld) [#/Vol] 241 10*3/uL 150-450 [facility] Potassium measurement (mass/ volume)Ordered By: Valentín Miller on 10-19-2024 Potassium (Unsp spec) [Mass/Vol] 5.5 mmol/L High 3.3-5.1 [facility] RBC Auto (Bld) [#/Vol]Ordere d By: Valentín Miller on 10-19-2024 RBC (Bld) [#/Vol] 4.39 10*6/uL Low 4.6-6.2 [facility] Serum creatinine measurement (mass/volume)Ordered By: Valentín Miller on 10-19-2024 Creatinine [Mass/Vol] 1.19 mg/dL 0.70-1.20 [facility] Serum glucose measurement (m ass/volume)Ordered By: Valentín Miller on 10-19-2024 Glucose [Mass/Vol] 343 mg/dL High 70-99 [facility] Serum or plasma calcium brenda urement (mass/volume)Ordered By: Valentín Miller on 10-19-2024 Calcium [Mass/Vol] 9.2 mg/dL 7.6-11.0 [facility] Serum or plasma urea nitroge n measurement (mass/volume)Ordered By: Valentín Miller on 10-19-2024 Urea nitrogen [Mass/Vol] 19 mg/dL 4-19 [facility] Sodium levelOrdered By: Uli Miller on 10-19-2024 Sodium [Moles/Vol] 133 mmol/L 133-145 [facility] Troponin T.cardiac [Mass/vol ume] in Serum or Plasma by High sensitivity methodOrdered By: Valentín Miller on 10-19-2024 Troponin T.cardiac High sensitivity method [Mass/Vol] 26 ng/L High <22 [facility] Troponin T.cardiac High sensitivity method [Mass/Vol] 27 ng/L High <22 [facility] Troponin T.cardiac High sensitivity method [Mass/Vol] 25 ng/L High <22 [facility] White blood cell (WBC) count Ordered By: Valentín Miller on 10-19-2024 WBC (Bld) [#/Vol] 6.7 10*3/uL 4.4-11.0 [facility] Cardiology Visit Reporton Cardiology Visit Report Normal [facility] Bedside Glucoseon 09-21-2024 FINGERSTICK GLU 223 mg/dL High 74-106 [facility] Comment on above: Result Comment: SNEHA GEMENT OF PATIENT CARE PER NURSING PROTOCOL Performed By: #### L 501.080 ####[facility] [address] [place], [address] FINGERSTICK GLU 197 mg/dL High -106 [facility] Comment on above: Result Comment: SNEHA GEMENT OF PATIENT CARE PER NURSING PROTOCOL Performed By: #### L 501.080 ####[facility] [address] [place], [address] FINGERSTICK GLU 163 mg/dL High [facility]106 [facility] Comment on above: Result Comment: SNEHA GEMENT OF PATIENT CARE PER NURSING PROTOCOL Performed By: #### L 501.080 ####[facility] [address] [place], [address] Calculated very low density lipoprotein (VLDL) cholesterol measurementOrdered By: Seth Carrington on 09-21-2024 Calculated very low density lipoprotein (VLDL) cholesterol measurement 31 mg/dL 5-40 [facility] Discharge Instructionon 09-[address] [facility] deOrdered By: Donna Hartley on 09-21-2024 Glucose [Mass/Vol] 223 mg/dL High 74-106 [facility] LDL calc ser/plasOrdered By: Seth Carrington on 09-21-2024 Cholesterol in LDL [Mass/Vol] 18 mg/dL [facility] Lipid Profileon 09-21-2024 CHOL:HDL 2.11 Normal [facility] Comment on above: Performed By: #### L 500.4100 ####[facility] [address] [place], [address] Cholesterol [Mass/Vol] 93 mg/dL Normal <=200 [facility] Comment on above: Result Comment: Chol esterol level, Desirable <200 mg/dLBorderline high cholesterol 200-239 mg/dLHigh cholesterol >=240 mg/dLRecommendations of the NCEP Adult Treatment Panel for thefollowing risk-cutoff thresholds for the [place] Americansierra t[place]ulation. Performed By: #### L 500.4100 ####[facility] [address] [place], [address] Cholesterol in HDL [Mass/Vol] 44 mg/dL Normal [facility] Comment on above: Result Comment: Audrey onal Cholesterol Education Program (NCEP) guidelines:<40 mg/dL: Low HDL-cholesterol (major risk factor for CHD)>= 60 mg/dL: High HDL-cholesterol (negative risk factor forCHD)HDL-cholesterol is affected by a number of factors, e.g.smoking, exercise, hormones, sex and age. Performed By: #### L 500.4100 ####[facility] [address] [place], [address] Cholesterol in LDL [Mass/Vol] 18 mg/dL Normal [facility] Comment on above: Result Comment: Bord icicbg=147-473 mg/dL Higher Eppc=959 mg/dL or greater Performed By: #### L 500.4100 ####[facility] [address] [place], [address] Cholesterol in VLDL [Mass/Vol] 31 mg/dL Normal 5-40 [facility] Comment on above: Performed By: #### L 500.4100 ####[facility] [address] [place], [address] Triglyceride [Mass/Vol] 155 mg/dL Normal [facility] Comment on above: Result Comment: The drugs N-Acetylcysteine and Metamizole may falselydepress this assay.Normal range: <150 mg/dLBorderline High: 150-199 mg/dLHigh: 200-499 mg/dLVery High: >500 mg/dL Performed By: #### L 500.4100 ####[facility] [address] [place], [address] Serum or plasma cholesterol in HDL measurement (mass/volume)Ordered By: Seth Carrington on 09-21-2024 Cholesterol in HDL [Mass/Vol] 44 mg/dL >40 [facility] Serum or plasma cholesterol measurement (mass/volume)Ordered By: Seth Carrington on 09-21-2024 Cholesterol [Mass/Vol] 93 mg/dL <201 [facility] Anion gap in Serum or Plasma Ordered By: Seth Carrington on 09-20-2024 Anion gap [Moles/Vol] 11 mmol/L 5-15 [facility] BUN/creatinine ratioOrdered By: Seth Carrington on 09-20-2024 Urea nitrogen/Creatinine [Mass ratio] 17.8 mg/mg 10- [facility] Basic Metabolic Profile (BMP )on 09-20-2024 BUN/CRE 17.8 RATIO Normal - [facility] Comment on above: Performed By: #### L 500.2500 ####[facility] [address] [place], [address] Calcium [Mass/Vol] 9.4 mg/dL Normal 7.6-11.0 [facility] Comment on above: Performed By: #### L 500.2500 ####[facility] [address] [place], [address] Chloride [Moles/Vol] 100 mmol/L Normal 98-108 [facility] Comment on above: Performed By: #### L 500.2500 ####[facility] [address] [place], [address] CO2 [Moles/Vol] 25.3 mmol/L Normal 21.0-32.0 [facility] Comment on above: Performed By: #### L 500.2500 ####[facility] [address] [place], [address] Creatinine [Mass/Vol] 1.11 mg/dL Normal 0.70-1.20 [facility] Comment on above: Performed By: #### L 500.2500 ####[facility] [address] [place], [address] ECRCL 71.61 ml/min Normal 50-250 [facility] Comment on above: Performed By: #### L 500.2500 ####[facility] [address] [place], [address] GAP 11 Normal 5-15 [facility] Comment on above: Performed By: #### L 500.2500 ####[facility] [address] [place], [address] GFR/1.73 sq M.predicted among non-blacks MDRD (S/P/Bld) [Vol rate/Area] 74 mL/min/{1.73_m2} Normal >60 [facility] Comment on above: Result Comment: mL/m in/1.73m2 CKD-EPI Creatinine Equation (2020) Performed By: #### L 500.2500 ####[facility] [address] [place], [address] Glucose [Mass/Vol] 148 mg/dL High 70-99 [facility] Comment on above: Performed By: #### L 500.2500 ####[facility] [address] [place], [address] Potassium [Moles/Vol] 4.0 mmol/L Normal 3.3-5.1 [facility] Comment on above: Performed By: #### L 500.2500 ####[facility] [address] [place], [address] Sodium [Moles/Vol] 136 mmol/L Normal 133-145 [facility] Comment on above: Performed By: #### L 500.2500 ####[facility] [address] [place], [address] Urea nitrogen [Mass/Vol] 20 mg/dL High 4-19 [facility] Comment on above: Performed By: #### L 500.2500 ####[facility] [address] [place], [address] Bedside Glucoseon 09-20-2024 FINGERSTICK GLU 152 mg/dL High 74-106 [facility] Comment on above: Result Comment: SNEHA GEMENT OF PATIENT CARE PER NURSING PROTOCOL Performed By: #### L 501.080 ####[facility] [address] [place], [address] FINGERSTICK GLU 190 mg/dL High 74-106 [facility] Comment on above: Result Comment: SNEHA GEMENT OF PATIENT CARE PER NURSING PROTOCOL Performed By: #### L 501.080 ####[facility] [address] [place], [address] FINGERSTICK GLU 246 mg/dL High 74-106 [facility] Comment on above: Result Comment: SNEHA GEMENT OF PATIENT CARE PER NURSING PROTOCOL Performed By: #### L 501.080 ####[facility] [address] [place], [address] FINGERSTICK GLU 154 mg/dL High 74-106 [facility] Comment on above: Result Comment: SNEHA GEMENT OF PATIENT CARE PER NURSING PROTOCOL Performed By: #### L 501.080 ####[facility] [address] [place], [address] Carbon dioxide, total [Moles /volume] in Central venous bloodOrdered By: Seth Carrington on 09-20-2024 CO2 [Moles/Vol] 25.3 mmol/L 21.0-32.0 [facility] Chloride assayOrdered By: Carol Carrington on 09-20-2024 Chloride [Moles/Vol] 100 mmol/L 98-108 [facility] Electrocardiogram reportOrde red By: Calos Quinn on 09-20-2024 EKG study [facility] Work Phone: Glomerular filtration rate ( GFR) estimation/1.73 sq m using serum, plasma, or whole bOrdered By: Seth Carrington on 09-20-2024 GFR/1.73 sq M.predicted among non-blacks MDRD (S/P/Bld) [Vol rate/Area] 74 mL/min/{1.73_m2} >60 [facility] Potassium measurement (mass/ volume)Ordered By: Seth Carrington on 09-20-2024 Potassium (Unsp spec) [Mass/Vol] 4.0 mmol/L 3.3-5.1 [facility] Serum creatinine measurement (mass/volume)Ordered By: Seth Carrington on 09-20-2024 Creatinine [Mass/Vol] 1.11 mg/dL 0.70-1.20 [facility] Serum glucose measurement (m ass/volume)Ordered By: Seth Carrington on 09-20-2024 Glucose [Mass/Vol] 148 mg/dL High 70-99 [facility] Serum or plasma calcium brenda urement (mass/volume)Ordered By: Seth Carrington on 09-20-2024 Calcium [Mass/Vol] 9.4 mg/dL 7.6-11.0 [facility] Serum or plasma urea nitroge n measurement (mass/volume)Ordered By: Seth Carrington on 09-20-2024 Urea nitrogen [Mass/Vol] 20 mg/dL High 4-19 [facility] Sodium levelOrdered By: Seth Carrington on 09-20-2024 Sodium [Moles/Vol] 136 mmol/L 133-145 [facility] Basic Metabolic Profile (BMP )on 09-19-2024 BUN/CRE 18.5 RATIO Normal 10-20 [facility] Comment on above: Performed By: #### L 500.2500, L100.0500 ####[facility] [address] [place], [address] Calcium [Mass/Vol] 9.4 mg/dL Normal 7.6-11.0 [facility] Comment on above: Performed By: #### L 500.2500, L100.0500 ####[facility] [address] [place], [address] Chloride [Moles/Vol] 99 mmol/L Normal 98-108 [facility] Comment on above: Performed By: #### L 500.2500, L100.0500 ####[facility] [address] [place], [address] CO2 [Moles/Vol] 24.3 mmol/L Normal 21.0-32.0 [facility] Comment on above: Performed By: #### L 500.2500, L100.0500 ####[facility] [address] [place], [address] Creatinine [Mass/Vol] 1.13 mg/dL Normal 0.70-1.20 [facility] Comment on above: Performed By: #### L 500.2500, L100.0500 ####[facility] [address] [place], [address] ECRCL 70.34 ml/min Normal 50-250 [facility] Comment on above: Performed By: #### L 500.2500, L100.0500 ####[facility] [address] [place], [address] GAP 13 Normal 5-15 [facility] Comment on above: Performed By: #### L 500.2500, L100.0500 ####[facility] [address] [place], [address] GFR/1.73 sq M.predicted among non-blacks MDRD (S/P/Bld) [Vol rate/Area] 73 mL/min/{1.73_m2} Normal >60 [facility] Comment on above: Result Comment: mL/m in/1.73m2 CKD-EPI Creatinine Equation (2020) Performed By: #### L 500.2500, L100.0500 ####[facility] [address] [place], [address] Glucose [Mass/Vol] 187 mg/dL High 70-99 [facility] Comment on above: Performed By: #### L 500.2500, L100.0500 ####[facility] [address] [place], [address] Potassium [Moles/Vol] 3.7 mmol/L Normal 3.3-5.1 [facility] Comment on above: Performed By: #### L 500.2500, L100.0500 ####[facility] [address] [place], [address] Sodium [Moles/Vol] 136 mmol/L Normal 133-145 [facility] Comment on above: Performed By: #### L 500.2500, L100.0500 ####[facility] [address] [place], [address] Urea nitrogen [Mass/Vol] 21 mg/dL High 4-19 [facility] Comment on above: Performed By: #### L 500.2500, L100.0500 ####[facility] [address] [place], [address] Bedside Glucoseon 09-19-2024 FINGERSTICK GLU 198 mg/dL High 74-106 [facility] Comment on above: Result Comment: SNEHA GEMENT OF PATIENT CARE PER NURSING PROTOCOL Performed By: #### L 501.080 ####[facility] [address] [place], [address] FINGERSTICK GLU 163 mg/dL High 74-106 [facility] Comment on above: Result Comment: SNEHA GEMENT OF PATIENT CARE PER NURSING PROTOCOL Performed By: #### L 501.080 ####[facility] [address] [place], [address] FINGERSTICK GLU 170 mg/dL High 74-106 [facility] Comment on above: Result Comment: SNEHA GEMENT OF PATIENT CARE PER NURSING PROTOCOL Performed By: #### L 501.080 ####[facility] [address] [place], [address] FINGERSTICK GLU 193 mg/dL High 74-106 [facility] Comment on above: Result Comment: SNEHA GEMENT OF PATIENT CARE PER NURSING PROTOCOL Performed By: #### L 501.080 ####[facility] [address] [place], [address] CBC-Complete Blood Cnt No Di ffon 09-19-2024 Erythrocyte distribution width (RBC) [Ratio] 12.5 % Normal 11.6-14.6 [facility] Comment on above: Performed By: #### L 500.2500, L100.0500 ####[facility] [address] [place], [address] Hematocrit (Bld) [Volume fraction] 44.2 % Normal 40-54 [facility] Comment on above: Performed By: #### L 500.2500, L100.0500 ####[facility] [address] [place], [address] Hemoglobin (Bld) [Mass/Vol] 14.8 g/dL Normal 13.0-16.5 [facility] Comment on above: Performed By: #### L 500.2500, L100.0500 ####[facility] [address] [place], [address] MCH (RBC) [Entitic mass] 31.1 pg Normal 27.0-32.0 [facility] Comment on above: Performed By: #### L 500.2500, L100.0500 ####[facility] [address] [place], [address] MCHC (RBC) [Mass/Vol] 33.5 g/dL Normal 32-36 [facility] Comment on above: Performed By: #### L 500.2500, L100.0500 ####[facility] [address] [place], [address] MCV (RBC) [Entitic vol] 92.9 fL Normal 80-94 [facility] Comment on above: Performed By: #### L 500.2500, L100.0500 ####[facility] [address] [place], [address] Platelet mean volume (Bld) [Entitic vol] 9.5 fL Normal 6.2-12.0 [facility] Comment on above: Performed By: #### L 500.2500, L100.0500 ####[facility] [address] [place], [address] Platelets (Bld) [#/Vol] 297 10*3/uL Normal 150-450 [facility] Comment on above: Performed By: #### L 500.2500, L100.0500 ####[facility] [address] [place], [address] RBC (Bld) [#/Vol] 4.76 10*6/uL Normal 4.6-6.2 [facility] Comment on above: Performed By: #### L 500.2500, L100.0500 ####[facility] [address] [place], [address] RDW SD 43.1 fl Normal 35.1-43.9 [facility] Comment on above: Performed By: #### L 500.2500, L100.0500 ####[facility] [address] [place], [address] WBC (Bld) [#/Vol] 7.7 10*3/uL Normal 4.4-11.0 [facility] Comment on above: Performed By: #### L 500.2500, L100.0500 ####[facility] [address] [place], [address] Erythrocyte distribution wid th ratioOrdered By: Clinton Soares on 09-19-2024 Erythrocyte distribution width (RBC) [Ratio] 12.5 % 11.6-14.6 [facility] Erythrocyte distribution wid th standard deviationOrdered By: Clinton Soares on 09-19-2024 Erythrocyte distribution width (RBC) [Ratio] 43.1 fl 35.1-43.9 [facility] Hematocrit Auto (Bld) [Volum e fraction]Ordered By: Clinton Soares on 09-19-2024 Hematocrit (Bld) [Volume fraction] 44.2 % 40-54 [facility] Hemoglobin measurementOrdere d By: Clinton Soares on 09-19-2024 Hemoglobin (Bld) [Mass/Vol] 14.8 g/dL 13.0-16.5 [facility] Limited echocardiogram repor tOrdered By: Calos Quinn on 09-19-2024 Study report [facility] Work Phone: MCV (mean corpuscular volume ) determinationOrdered By: Clinton Soares on 09-19-2024 MCV (RBC) [Entitic vol] 92.9 fL 80-94 [facility] Mean corpuscular hemoglobin (MCH) determinationOrdered By: Clinton Soares on 09-19-2024 MCH (RBC) [Entitic mass] 31.1 pg 27.0-32.0 [facility] Platelet countOrdered By: Buzz Soares on 09-19-2024 Platelets (Bld) [#/Vol] 297 10*3/uL 150-450 [facility] RBC Auto (Bld) [#/Vol]Ordere d By: Clinton Soares on 09-19-2024 RBC (Bld) [#/Vol] 4.76 10*6/uL 4.6-6.2 [facility] White blood cell (WBC) count Ordered By: Clinton Soares on 09-19-2024 WBC (Bld) [#/Vol] 7.7 10*3/uL 4.4-11.0 [facility] 12 Lead EKGon 09-18-2024 12 Lead EKG Normal [facility] Absolute lymphocyte countOrd ered By: Saúl Aguilar on 09-18-2024 Lymphocytes Auto (Unsp spec) [#/Vol] 2.05 10*3/uL 0.83-4.51 [facility] Anion gap in Serum or Plasma Ordered By: Saúl Aguilar on 09-18-2024 Anion gap [Moles/Vol] 12 mmol/L 08-18 [facility] Automated lymphocyte count a s percentage of total leukocytesOrdered By: Saúl Aguilar on 09-18-2024 Lymphocytes/100 WBC Auto (Unsp spec) 27.0 % [facility] BUN/creatinine ratioOrdered By: Saúl Aguilar on 09-18-2024 Urea nitrogen/Creatinine [Mass ratio] 16.5 mg/mg 01-23 [facility] Basic Metabolic Profile (BMP )on 09-18-2024 BUN/CRE 16.5 RATIO Normal 01-23 [facility] Comment on above: Performed By: #### L 500.2500, L503.7505 ####[facility] [address] [place], [address] Calcium [Mass/Vol] 9.3 mg/dL Normal 7.6-11.0 [facility] Comment on above: Performed By: #### L 500.2500, L503.7505 ####[facility] [address] [place], [address] Chloride [Moles/Vol] 105 mmol/L Normal 98-108 [facility] Comment on above: Performed By: #### L 500.2500, L503.7505 ####[facility] [address] [place], [address] CO2 [Moles/Vol] 22.3 mmol/L Normal 21.0-32.0 [facility] Comment on above: Performed By: #### L 500.2500, L503.7505 ####[facility] [address] [place], [address] Creatinine [Mass/Vol] 1.01 mg/dL Normal 0.70-1.20 [facility] Comment on above: Performed By: #### L 500.2500, L503.7505 ####[facility] [address] [place], [address] GAP 12 Normal 5-15 [facility] Comment on above: Performed By: #### L 500.2500, L5.7505 ####[facility] [address] [place], [address] GFR/1.73 sq M.predicted among non-blacks MDRD (S/P/Bld) [Vol rate/Area] 83 mL/min/{1.73_m2} Normal >60 [facility] Comment on above: Result Comment: mL/m in/1.73m2 CKD-EPI Creatinine Equation (2020) Performed By: #### L 500.2500, L5.7505 ####[facility] [address] [place], [address] Glucose [Mass/Vol] 184 mg/dL High 70-99 [facility] Comment on above: Performed By: #### L 500.2500, L5.7505 ####[facility] [address] [place], [address] Potassium [Moles/Vol] 5.0 mmol/L Normal 3.3-5.1 [facility] Comment on above: Result Comment: Hemo lysis present, Results??could be affected.?? Performed By: #### L 500.2500, L5.7505 ####[facility] [address] [place], [address] Sodium [Moles/Vol] 139 mmol/L Normal 133-145 [facility] Comment on above: Performed By: #### L 500.2500, L503.7505 ####[facility] [address] [place], [address] Urea nitrogen [Mass/Vol] 17 mg/dL Normal 4-19 [facility] Comment on above: Performed By: #### L 500.2500, L5.7505 ####[facility] [address] [place], [address] Basophil percentageOrdered B y: Saúl Aguilar on 09-18-2024 Basophils/100 WBC (Bld) 0.4 % 0-1 [facility] Bedside Glucoseon 09-18-2024 FINGERSTICK GLU 327 mg/dL High 74-106 [facility] Comment on above: Result Comment: SNEHA GEMENT OF PATIENT CARE PER NURSING PROTOCOL Performed By: #### L 501.080 ####[facility] [address] [place], [address] FINGERSTICK GLU 207 mg/dL High 74-106 [facility] Comment on above: Result Comment: SNEHA GEMENT OF PATIENT CARE PER NURSING PROTOCOL Performed By: #### L 501.080 ####[facility] [address] [place], [address] CBC W/Diff, Automatedon 09-04 Absolute Lymph 2.05 X10 3/uL Normal 0.83-4.51 [facility] Comment on above: Performed By: #### L 501.4021, L100.0100 ####[facility] [address] [place], [address] Absolute Neut 4.7 X10 3/uL Normal 2.0-7.7 [facility] Comment on above: Performed By: #### L 501.4021, L100.0100 ####[facility] [address] [place], [address] Basophils/100 WBC (Bld) 0.4 % Normal 0-1 [facility] Comment on above: Performed By: #### L 501.4021, L100.0100 ####[facility] [address] [place], [address] Eosinophils/100 WBC (Bld) 3.7 % Normal 0-5 [facility] Comment on above: Performed By: #### L 501.4021, L100.0100 ####[facility] [address] [place], [address] Erythrocyte distribution width (RBC) [Ratio] 12.9 % Normal 11.6-14.6 [facility] Comment on above: Performed By: #### L 501.4021, L100.0100 ####[facility] [address] [place], [address] Hematocrit (Bld) [Volume fraction] 44.4 % Normal 40-54 [facility] Comment on above: Performed By: #### L 501.4021, L100.0100 ####[facility] [address] [place], [address] Hemoglobin (Bld) [Mass/Vol] 14.8 g/dL Normal 13.0-16.5 [facility] Comment on above: Performed By: #### L 501.4021, L100.0100 ####[facility] [address] [place], [address] IG% 0.300 Normal 0.0-0.9 [facility] Comment on above: Result Comment: IG% - Immature Granulocytes (promyelocytes, myelocytes andmetamyelocytes) > 1% indicates that a LEFT SHIFT is Present. Performed By: #### L 501.4021, L100.0100 ####[facility] [address] [place], [address] Lymphocytes/100 WBC (Bld) 27.0 % Normal 19-41 [facility] Comment on above: Performed By: #### L 501.4021, L100.0100 ####[facility] [address] [place], [address] MCH (RBC) [Entitic mass] 31.9 pg Normal 27.0-32.0 [facility] Comment on above: Performed By: #### L 501.4021, L100.0100 ####[facility] [address] [place], [address] MCHC (RBC) [Mass/Vol] 33.3 g/dL Normal 32-36 [facility] Comment on above: Performed By: #### L 501.4021, L100.0100 ####[facility] [address] [place], [address] MCV (RBC) [Entitic vol] 95.7 fL High 80-94 [facility] Comment on above: Performed By: #### L 501.4021, L100.0100 ####[facility] [address] [place], [address] Monocytes/100 WBC (Bld) 6.7 % Normal 0-10 [facility] Comment on above: Performed By: #### L 501.4021, L100.0100 ####[facility] [address] [place], [address] Neutrophils/100 WBC (Bld) 61.9 % Normal 47-70 [facility] Comment on above: Performed By: #### L 501.4021, L100.0100 ####[facility] [address] [place], [address] Nucleated RBC (Bld) [#/Vol] 0 10*3/uL Normal 0-5 [facility] Comment on above: Performed By: #### L 501.4021, L100.0100 ####[facility] [address] [place], [address] Platelet mean volume (Bld) [Entitic vol] 9.5 fL Normal 6.2-12.0 [facility] Comment on above: Performed By: #### L 501.4021, L100.0100 ####[facility] [address] [place], [address] Platelets (Bld) [#/Vol] 276 10*3/uL Normal 150-450 [facility] Comment on above: Performed By: #### L 501.4021, L100.0100 ####[facility] [address] [place], [address] RBC (Bld) [#/Vol] 4.64 10*6/uL Normal 4.6-6.2 [facility] Comment on above: Performed By: #### L 501.4021, L100.0100 ####[facility] [address] [place], [address] RDW SD 45.1 fl High 35.1-43.9 [facility] Comment on above: Performed By: #### L 501.4021, L100.0100 ####[facility] [address] [place], [address] WBC (Bld) [#/Vol] 7.6 10*3/uL Normal 4.4-11.0 [facility] Comment on above: Performed By: #### L 501.4021, L100.0100 ####[facility] [address] [place], [address] Carbon dioxide, total [Moles /volume] in Central venous bloodOrdered By: Saúl Aguilar on 09-18-2024 CO2 [Moles/Vol] 22.3 mmol/L 21.0-32.0 [facility] Chest 1 View (Portable)on Chest 1 View (Portable) Normal [facility] Chloride assayOrdered By: Chacho Aguilar on 09-18-2024 Chloride [Moles/Vol] 105 mmol/L 98-108 [facility] Echo, Limited Studyon 2024 Echo, Limited Study Normal [facility] Emergency Department Summary on 09-18-2024 Emergency Department Summary Normal [facility] Eosinophil percentageOrdered By: Saúl Aguliar on 09-18-2024 Eosinophils/100 WBC (Bld) 3.7 % 0-5 [facility] Erythrocyte distribution wid th ratioOrdered By: Saúl Aguilar on 09-18-2024 Erythrocyte distribution width (RBC) [Ratio] 12.9 % 11.6-14.6 [facility] Erythrocyte distribution wid th standard deviationOrdered By: Saúl Aguilar on 09-18-2024 Erythrocyte distribution width (RBC) [Ratio] 45.1 fl High 35.1-43.9 [facility] Glomerular filtration rate ( GFR) estimation/1.73 sq m using serum, plasma, or whole bOrdered By: Saúl Aguilar on 09-18-2024 GFR/1.73 sq M.predicted among non-blacks MDRD (S/P/Bld) [Vol rate/Area] 83 mL/min/{1.73_m2} >60 [facility] H AND P Exam - Hospitaliston 09-18-2024 H&P Exam - Hospitalist Normal [facility] Hematocrit Auto (Bld) [Volum e fraction]Ordered By: Saúl Aguilar on 09-18-2024 Hematocrit (Bld) [Volume fraction] 44.4 % 40-54 [facility] Hemoglobin A1con 09-18-2024 HbA1c (Bld) [Mass fraction] 9.9 % High <=5.6 [facility] Comment on above: Result Comment: Norm al < 5.7 % Prediabetic 5.7 - 6.4 % Diabetic >or= 6.5 % Please note range changes. Performed By: #### L 501.9985 ####[facility] [address] [place], [place], [address] Hemoglobin A1c percentageOrd ered By: Clinton Soares on 09-18-2024 HbA1c (Bld) [Mass fraction] 9.9 % High <5.7 [facility] Hemoglobin measurementOrdere d By: Saúl Aguilar on 09-18-2024 Hemoglobin (Bld) [Mass/Vol] 14.8 g/dL 13.0-16.5 [facility] Immature granulocytes/100 WB C Auto (Bld)Ordered By: Saúl Aguilar on 09-18-2024 Immature granulocytes/100 WBC (Bld) 0.300 % 0.0-0.9 [facility] L499.0042on 09-18-2024 Trop T High Sen 62 ng/L Invalid Interpretation Code <=22 [facility] Comment on above: Result Comment: Crit ical Result(s) Called at: 09/18/2024-:23 by: Nesha Rodriguez.??Results read back by same. Performed By: #### L 499.0042 ####[facility] [address] [place], [address] L499.0043on 09-18-2024 Trop T High Sen 64 ng/L Invalid Interpretation Code <=22 [facility] Comment on above: Result Comment: Crit ical Result(s) Called at: 09/18/2024-11:33 by: Nesha Haider.??Results read back by same. Performed By: #### L 499.0043 ####[facility] [address] [place], [place], [address] L501.4021on 09-18-2024 Trop T High Sen 64 ng/L Invalid Interpretation Code <=22 [facility] Comment on above: Result Comment: Hemo lysis present, Results??could be affected.??Critical Result(s) Called at: 09/18/202411:33 by: Nesha Rodriguez.??Results read back by same. Performed By: #### L 501.4021, L100.0100 ####[facility] [address] [place], [place], [address] L503.7505on 09-18-2024 Natriuretic peptide B (Bld) [Mass/Vol] 2552 pg/mL High <=900 [facility] Comment on above: Result Comment: Hear t Failure Unlikely: < 300 pg/mLHeart Failure Likely< 50 Years: > 450 pg/mL50-75 Years: > 900 pg/mL>75 Years: > 1800 pg/mL Performed By: #### L 500.2500, L503.7505 ####[facility] [address] [place], [place], [address] MCV (mean corpuscular volume ) determinationOrdered By: Saúl Aguilar on 09-18-2024 MCV (RBC) [Entitic vol] 95.7 fL High 80-94 [facility] Mean corpuscular hemoglobin (MCH) determinationOrdered By: Saúl Aguilar on 09-18-2024 MCH (RBC) [Entitic mass] 31.9 pg 27.0-32.0 [facility] Monocyte percentageOrdered B y: Saúl Aguilar on 09-18-2024 Monocytes/100 WBC (Bld) 6.7 % 0-10 [facility] Natriuretic peptide.B prohor parris N-Terminal [Mass/volume] in Serum or PlasmaOrdered By: Saúl Aguilar on 09-18-2024 Natriuretic peptide.B prohormone N-Terminal [Mass/Vol] 2552 pg/mL High <900 [facility] Neutrophil percentageOrdered By: Saúl Aguilar on 09-18-2024 Neutrophils/100 WBC (Bld) 61.9 % 47-70 [facility] Platelet countOrdered By: Chacho Aguilar on 09-18-2024 Platelets (Bld) [#/Vol] 276 10*3/uL 150-450 [facility] Potassium measurement (mass/ volume)Ordered By: Saúl Aguilar on 09-18-2024 Potassium (Unsp spec) [Mass/Vol] 5.0 mmol/L 3.3-5.1 [facility] RBC Auto (Bld) [#/Vol]Ordere d By: Saúl Aguilar on 09-18-2024 RBC (Bld) [#/Vol] 4.64 10*6/uL 4.6-6.2 [facility] Serum creatinine measurement (mass/volume)Ordered By: Saúl Aguilar on 09-18-2024 Creatinine [Mass/Vol] 1.01 mg/dL 0.70-1.20 [facility] Serum glucose measurement (m ass/volume)Ordered By: Saúl Aguilar on 09-18-2024 Glucose [Mass/Vol] 184 mg/dL High 70-99 [facility] Serum or plasma calcium brenda urement (mass/volume)Ordered By: Saúl Aguilar on 09-18-2024 Calcium [Mass/Vol] 9.3 mg/dL 7.6-11.0 [facility] Serum or plasma urea nitroge n measurement (mass/volume)Ordered By: Saúl Aguilar on 09-18-2024 Urea nitrogen [Mass/Vol] 17 mg/dL 4-19 [facility] Sodium levelOrdered By: Saúl Aguilar on 09-18-2024 Sodium [Moles/Vol] 139 mmol/L 133-145 [facility] Troponin T.cardiac [Mass/vol ume] in Serum or Plasma by High sensitivity methodOrdered By: Saúl Aguilar on 09-18-2024 Troponin T.cardiac High sensitivity method [Mass/Vol] 64 ng/L High <22 [facility] Troponin T.cardiac High sensitivity method [Mass/Vol] 62 ng/L High <22 [facility] Troponin T.cardiac High sensitivity method [Mass/Vol] 64 ng/L High <22 [facility] White blood cell (WBC) count Ordered By: Saúl Aguilar on 09-18-2024 WBC (Bld) [#/Vol] 7.6 10*3/uL 4.4-11.0 [facility] Arterial study reportOrdered By: Saúl Flowers on 09-08-2024 Noninvasive arteriosclerosis study report [facility] Work Phone: Carotid Duplex Ultrasoundon 09-08-2024 Carotid Duplex Ultrasound Normal [facility] Duplex ultrasound of carotid artery reportOrdered By: Saúl Flowers on 09-08-2024 Study report [facility] Work Phone: Lower Ext Art Exam w/o Exerc zachary 09-08-2024 Lower Ext Art Exam w/o Exercis Normal [facility] Internal Medicine Office Vis iton 08-02-2024 Internal Medicine Office Visit Normal [facility] No Panel InformationOrdered By: Xiang Rogers on 08-02-2024 12.5 % High 4.2-6.3 [facility] L499.0043on 07-30-2024 Trop T High Sen Normal <=22 [facility] Comment on above: Result Comment: Canc elled via OM: Order cancelled - Patient discharged Performed By: #### L 499.0043 ####[facility] [address] [place], [address] Absolute lymphocyte countOrd ered By: ED PROVIDER on 07-29-2024 Lymphocytes Auto (Unsp spec) [#/Vol] 2.79 10*3/uL 0.83-4.51 [facility] Anion gap in Serum or Plasma Ordered By: Lawson Castellon on 07-29-2024 Anion gap [Moles/Vol] 16 mmol/L High 5-15 [facility] Automated lymphocyte count a s percentage of total leukocytesOrdered By: ED PROVIDER on 07-29-2024 Lymphocytes/100 WBC Auto (Unsp spec) 37.4 % 19-41 [facility] BUN/creatinine ratioOrdered By: Lawson Castellon on 07-29-2024 Urea nitrogen/Creatinine [Mass ratio] 20.7 mg/mg High 10- [facility] Basic Metabolic Profile (BMP )on 07-29-2024 BUN/CRE 20.7 RATIO High - [facility] Comment on above: Performed By: #### L 500.2500, L100.0100, L501.4021 ####[facility] [address] [place], [address] Calcium [Mass/Vol] 9.3 mg/dL Normal 7.6-11.0 [facility] Comment on above: Performed By: #### L 500.2500, L100.0100, L501.4021 ####[facility] [address] [place], [address] Chloride [Moles/Vol] 99 mmol/L Normal 98-108 [facility] Comment on above: Performed By: #### L 500.2500, L100.0100, L501.4021 ####[facility] [address] [place], [address] CO2 [Moles/Vol] 19.8 mmol/L Low 21.0-32.0 [facility] Comment on above: Performed By: #### L 500.2500, L100.0100, L501.4021 ####[facility] [address] [place], [address] Creatinine [Mass/Vol] 1.11 mg/dL Normal 0.70-1.20 [facility] Comment on above: Performed By: #### L 500.2500, L100.0100, L501.4021 ####[facility] [address] [place], [address] ECRCL 71.61 ml/min Normal 50-250 [facility] Comment on above: Performed By: #### L 500.2500, L100.0100, L501.4021 ####[facility] [address] [place], [address] GAP 16 High 5-15 [facility] Comment on above: Performed By: #### L 500.2500, L100.0100, L501.4021 ####[facility] [address] [place], [address] GFR/1.73 sq M.predicted among non-blacks MDRD (S/P/Bld) [Vol rate/Area] 74 mL/min/{1.73_m2} Normal >60 [facility] Comment on above: Result Comment: mL/m in/1.73m2 CKD-EPI Creatinine Equation (2020) Performed By: #### L 500.2500, L100.0100, L501.4021 ####[facility] [address] [place], [address] Glucose [Mass/Vol] 400 mg/dL High 70-99 [facility] Comment on above: Performed By: #### L 500.2500, L100.0100, L501.4021 ####[facility] [address] [place], [address] Potassium [Moles/Vol] 4.0 mmol/L Normal 3.3-5.1 [facility] Comment on above: Result Comment: Hemo lysis present, Results??could be affected.?? Performed By: #### L 500.2500, L100.0100, L501.4021 ####[facility] [address] [place], [address] Sodium [Moles/Vol] 134 mmol/L Normal 133-145 [facility] Comment on above: Performed By: #### L 500.2500, L100.0100, L501.4021 ####[facility] [address] [place], [address] Urea nitrogen [Mass/Vol] 23 mg/dL High 4-19 [facility] Comment on above: Performed By: #### L 500.2500, L100.0100, L501.4021 ####[facility] [address] [place], [address] Basophil percentageOrdered B y: ED PROVIDER on 07-29-2024 Basophils/100 WBC (Bld) 0.3 % 0-1 [facility] CBC W/Diff, Automatedon 07-06 Absolute Lymph 2.79 X10 3/uL Normal 0.83-4.51 [facility] Comment on above: Performed By: #### L 500.2500, L100.0100, L501.4021 ####[facility] [address] [place], [address] Absolute Neut 4.0 X10 3/uL Normal 2.0-7.7 [facility] Comment on above: Performed By: #### L 500.2500, L100.0100, L501.4021 ####[facility] [address] [place], [address] Basophils/100 WBC (Bld) 0.3 % Normal 0-1 [facility] Comment on above: Performed By: #### L 500.2500, L100.0100, L501.4021 ####[facility] [address] [place], [address] Eosinophils/100 WBC (Bld) 2.5 % Normal 0-5 [facility] Comment on above: Performed By: #### L 500.2500, L100.0100, L501.4021 ####[facility] [address] [place], [address] Erythrocyte distribution width (RBC) [Ratio] 12.7 % Normal 11.6-14.6 [facility] Comment on above: Performed By: #### L 500.2500, L100.0100, L501.4021 ####[facility] [address] [place], [address] Hematocrit (Bld) [Volume fraction] 44.1 % Normal 40-54 [facility] Comment on above: Performed By: #### L 500.2500, L100.0100, L501.4021 ####[facility] [address] [place], [address] Hemoglobin (Bld) [Mass/Vol] 15.6 g/dL Normal 13.0-16.5 [facility] Comment on above: Performed By: #### L 500.2500, L100.0100, L501.4021 ####[facility] [address] [place], [address] IG% 0.100 Normal 0.0-0.9 [facility] Comment on above: Result Comment: IG% - Immature Granulocytes (promyelocytes, myelocytes andmetamyelocytes) > 1% indicates that a LEFT SHIFT is Present. Performed By: #### L 500.2500, L100.0100, L501.4021 ####[facility] [address] [place], [address] Lymphocytes/100 WBC (Bld) 37.4 % Normal 19-41 [facility] Comment on above: Performed By: #### L 500.2500, L100.0100, L501.4021 ####[facility] [address] [place], [address] MCH (RBC) [Entitic mass] 32.2 pg High 27.0-32.0 [facility] Comment on above: Performed By: #### L 500.2500, L100.0100, L501.4021 ####[facility] [address] [place], [address] MCHC (RBC) [Mass/Vol] 35.4 g/dL Normal 32-36 [facility] Comment on above: Performed By: #### L 500.2500, L100.0100, L501.4021 ####[facility] [address] [place], [address] MCV (RBC) [Entitic vol] 90.9 fL Normal 80-94 [facility] Comment on above: Performed By: #### L 500.2500, L100.0100, L501.4021 ####[facility] [address] [place], [address] Monocytes/100 WBC (Bld) 6.6 % Normal 0-10 [facility] Comment on above: Performed By: #### L 500.2500, L100.0100, L501.4021 ####[facility] [address] [place], [address] Neutrophils/100 WBC (Bld) 53.1 % Normal 47-70 [facility] Comment on above: Performed By: #### L 500.2500, L100.0100, L501.4021 ####[facility] [address] [place], [address] Nucleated RBC (Bld) [#/Vol] 0 10*3/uL Normal 0-5 [facility] Comment on above: Performed By: #### L 500.2500, L100.0100, L501.4021 ####[facility] [address] [place], [address] Platelet mean volume (Bld) [Entitic vol] 10.3 fL Normal 6.2-12.0 [facility] Comment on above: Performed By: #### L 500.2500, L100.0100, L501.4021 ####[facility] [address] [place], [address] Platelets (Bld) [#/Vol] 275 10*3/uL Normal 150-450 [facility] Comment on above: Performed By: #### L 500.2500, L100.0100, L501.4021 ####[facility] [address] [place], [address] RBC (Bld) [#/Vol] 4.85 10*6/uL Normal 4.6-6.2 [facility] Comment on above: Performed By: #### L 500.2500, L100.0100, L501.4021 ####[facility] [address] [place], [address] RDW SD 41.7 fl Normal 35.1-43.9 [facility] Comment on above: Performed By: #### L 500.2500, L100.0100, L501.4021 ####[facility] [address] [place], [address] WBC (Bld) [#/Vol] 7.5 10*3/uL Normal 4.4-11.0 [facility] Comment on above: Performed By: #### L 500.2500, L100.0100, L501.4021 ####[facility] [address] [place], [address] Carbon dioxide, total [Moles /volume] in Central venous bloodOrdered By: Lawson Castellon on 07-29-2024 CO2 [Moles/Vol] 19.8 mmol/L Low 21.0-32.0 [facility] Chest 1 View (Portable)on Chest 1 View (Portable) Normal [facility] Chloride assayOrdered By: Isael Castellon on 07-29-2024 Chloride [Moles/Vol] 99 mmol/L 98-108 [facility] Emergency Department Summary on 07-29-2024 Emergency Department Summary Normal [facility] Eosinophil percentageOrdered By: ED PROVIDER on 07-29-2024 Eosinophils/100 WBC (Bld) 2.5 % 0-5 [facility] Erythrocyte distribution wid th ratioOrdered By: ED PROVIDER on 07-29-2024 Erythrocyte distribution width (RBC) [Ratio] 12.7 % 11.6-14.6 [facility] Erythrocyte distribution wid th standard deviationOrdered By: ED PROVIDER on 07-29-2024 Erythrocyte distribution width (RBC) [Ratio] 41.7 fl 35.1-43.9 [facility] Glomerular filtration rate ( GFR) estimation/1.73 sq m using serum, plasma, or whole bOrdered By: Lawson Castellon on 07-29-2024 GFR/1.73 sq M.predicted among non-blacks MDRD (S/P/Bld) [Vol rate/Area] 74 mL/min/{1.73_m2} >60 [facility] Hematocrit Auto (Bld) [Volum e fraction]Ordered By: ED PROVIDER on 07-29-2024 Hematocrit (Bld) [Volume fraction] 44.1 % 40-54 [facility] Hemoglobin measurementOrdere d By: ED PROVIDER on 07-29-2024 Hemoglobin (Bld) [Mass/Vol] 15.6 g/dL 13.0-16.5 [facility] Immature granulocytes/100 WB C Auto (Bld)Ordered By: ED PROVIDER on 07-29-2024 Immature granulocytes/100 WBC (Bld) 0.100 % 0.0-0.9 [facility] L499.0042on 07-29-2024 Trop T High Sen 27 ng/L High <=22 [facility] Comment on above: Performed By: #### L 499.0042 ####[facility] [address] [place], [address] L501.4021on 07-29-2024 Trop T High Sen 22 ng/L Normal <=22 [facility] Comment on above: Performed By: #### L 500.2500, L100.0100, L501.4021 ####[facility] [address] [place], [address] MCV (mean corpuscular volume ) determinationOrdered By: ED PROVIDER on 07-29-2024 MCV (RBC) [Entitic vol] 90.9 fL 80-94 [facility] Mean corpuscular hemoglobin (MCH) determinationOrdered By: ED PROVIDER on 07-29-2024 MCH (RBC) [Entitic mass] 32.2 pg High 27.0-32.0 [facility] Monocyte percentageOrdered B y: ED PROVIDER on 07-29-2024 Monocytes/100 WBC (Bld) 6.6 % 0-10 [facility] Neutrophil percentageOrdered By: ED PROVIDER on 07-29-2024 Neutrophils/100 WBC (Bld) 53.1 % 47-70 [facility] Platelet countOrdered By: ED PROVIDER on 07-29-2024 Platelets (Bld) [#/Vol] 275 10*3/uL 150-450 [facility] Potassium measurement (mass/ volume)Ordered By: Lawson Castellon on 07-29-2024 Potassium (Unsp spec) [Mass/Vol] 4.0 mmol/L 3.3-5.1 [facility] RBC Auto (Bld) [#/Vol]Ordere d By: ED PROVIDER on 07-29-2024 RBC (Bld) [#/Vol] 4.85 10*6/uL 4.6-6.2 [facility] Serum creatinine measurement (mass/volume)Ordered By: Lawson Castellon on 07-29-2024 Creatinine [Mass/Vol] 1.11 mg/dL 0.70-1.20 [facility] Serum glucose measurement (m ass/volume)Ordered By: Lawson Castellon on 07-29-2024 Glucose [Mass/Vol] 400 mg/dL High 70-99 [facility] Serum or plasma calcium brenda urement (mass/volume)Ordered By: Lawson Castellon on 07-29-2024 Calcium [Mass/Vol] 9.3 mg/dL 7.6-11.0 [facility] Serum or plasma urea nitroge n measurement (mass/volume)Ordered By: Lawson Castellon on 07-29-2024 Urea nitrogen [Mass/Vol] 23 mg/dL High 4-19 [facility] Sodium levelOrdered By: Lawson Castellon on 07-29-2024 Sodium [Moles/Vol] 134 mmol/L 133-145 [facility] Troponin T.cardiac [Mass/vol ume] in Serum or Plasma by High sensitivity methodOrdered By: Lawson Castellon on 07-29-2024 Troponin T.cardiac High sensitivity method [Mass/Vol] 27 ng/L High <22 [facility] Troponin T.cardiac High sensitivity method [Mass/Vol] 22 ng/L <22 [facility] White blood cell (WBC) count Ordered By: ED PROVIDER on 07-29-2024 WBC (Bld) [#/Vol] 7.5 10*3/uL 4.4-11.0 [facility] MR/BMS.BVSon 07-14-2024 MR/BMS.BVS Normal [facility] Cardiology Visit Reporton Cardiology Visit Report Normal [facility] Basic Metabolic Profile (BMP )on 06-26-2024 BUN Normal 4-19 [facility] Comment on above: Result Comment: Canc elled via OM: Order cancelled - Patient discharged Performed By: #### L 500.2500, L100.0500 ####[facility] [address] [place], [address] BUN/CRE Normal 10-20 [facility] Comment on above: Result Comment: Canc elled via OM: Order cancelled - Patient discharged Performed By: #### L 500.2500, L100.0500 ####[facility] [address] [place], [address] Calcium Normal 7.6-11.0 [facility] Comment on above: Result Comment: Canc elled via OM: Order cancelled - Patient discharged Performed By: #### L 500.2500, L100.0500 ####[facility] [address] [place], [address] CL Normal 98-108 [facility] Comment on above: Result Comment: Canc elled via OM: Order cancelled - Patient discharged Performed By: #### L 500.2500, L100.0500 ####[facility] [address] [place], [address] CO2 Normal 21.0-32.0 [facility] Comment on above: Result Comment: Canc elled via OM: Order cancelled - Patient discharged Performed By: #### L 500.2500, L100.0500 ####[facility] [address] [place], [address] CREAT,SERUM Normal 0.70-1.20 [facility] Comment on above: Result Comment: Canc elled via OM: Order cancelled - Patient discharged Performed By: #### L 500.2500, L100.0500 ####[facility] [address] [place], [address] eGFR Normal >60 [facility] Comment on above: Result Comment: Canc elled via OM: Order cancelled - Patient discharged Performed By: #### L 500.2500, L100.0500 ####[facility] [address] [place], [address] GAP Normal 5-15 [facility] Comment on above: Result Comment: Canc elled via OM: Order cancelled - Patient discharged Performed By: #### L 500.2500, L100.0500 ####[facility] [address] [place], [address] GLU Normal 70-99 [facility] Comment on above: Result Comment: Canc elled via OM: Order cancelled - Patient discharged Performed By: #### L 500.2500, L100.0500 ####[facility] [address] [place], [address] Potassium Normal 3.3-5.1 [facility] Comment on above: Result Comment: Canc elled via OM: Order cancelled - Patient discharged Performed By: #### L 500.2500, L100.0500 ####[facility] [address] [place], [address] Basic Metabolic Profile (BMP) Normal 133-145 [facility] Comment on above: Result Comment: Canc elled via OM: Order cancelled - Patient discharged Performed By: #### L 500.2500, L100.0500 ####[facility] [address] [place], [address] CBC-Complete Blood Cnt No Di ffon 06-26-2024 HCT Normal 40-54 [facility] Comment on above: Result Comment: Canc elled via OM: Order cancelled - Patient discharged Performed By: #### L 500.2500, L100.0500 ####[facility] [address] [place], [address] HGB Normal 13.0-16.5 [facility] Comment on above: Result Comment: Canc elled via OM: Order cancelled - Patient discharged Performed By: #### L 500.2500, L100.0500 ####[facility] [address] [place], [address] MCH Normal 27.0-32.0 [facility] Comment on above: Result Comment: Canc elled via OM: Order cancelled - Patient discharged Performed By: #### L 500.2500, L100.0500 ####[facility] [address] [place], [address] MCHC Normal 32-36 [facility] Comment on above: Result Comment: Canc elled via OM: Order cancelled - Patient discharged Performed By: #### L 500.2500, L100.0500 ####[facility] [address] [place], [address] MCV Normal 80-94 [facility] Comment on above: Result Comment: Canc elled via OM: Order cancelled - Patient discharged Performed By: #### L 500.2500, L100.0500 ####[facility] [address] [place], [address] PLT Normal 150-450 [facility] Comment on above: Result Comment: Canc elled via OM: Order cancelled - Patient discharged Performed By: #### L 500.2500, L100.0500 ####[facility] [address] [place], [address] RBC Normal 4.6-6.2 [facility] Comment on above: Result Comment: Canc elled via OM: Order cancelled - Patient discharged Performed By: #### L 500.2500, L100.0500 ####[facility] [address] [place], [address] RDW CV Normal 11.6-14.6 [facility] Comment on above: Result Comment: Canc elled via OM: Order cancelled - Patient discharged Performed By: #### L 500.2500, L100.0500 ####[facility] [address] [place], [address] RDW SD Normal 35.1-43.9 [facility] Comment on above: Result Comment: Canc elled via OM: Order cancelled - Patient discharged Performed By: #### L 500.2500, L100.0500 ####[facility] [address] [place], [address] WBC Normal 4.4-11.0 [facility] Comment on above: Result Comment: Canc elled via OM: Order cancelled - Patient discharged Performed By: #### L 500.2500, L100.0500 ####[facility] [address] [place], [address] Basic Metabolic Profile (BMP )on 06-25-2024 BUN Normal 4-19 [facility] Comment on above: Result Comment: Canc elled via OM: Order cancelled - Patient discharged Performed By: #### L 100.0500, L500.2500 ####[facility] [address] [place], [address] BUN/CRE Normal 10-20 [facility] Comment on above: Result Comment: Canc elled via OM: Order cancelled - Patient discharged Performed By: #### L 100.0500, L500.2500 ####[facility] [address] [place], [address] Calcium Normal 7.6-11.0 [facility] Comment on above: Result Comment: Canc elled via OM: Order cancelled - Patient discharged Performed By: #### L 100.0500, L500.2500 ####[facility] [address] [place], [address] CL Normal 98-108 [facility] Comment on above: Result Comment: Canc elled via OM: Order cancelled - Patient discharged Performed By: #### L 100.0500, L500.2500 ####[facility] [address] [place], [address] CO2 Normal 21.0-32.0 [facility] Comment on above: Result Comment: Canc elled via OM: Order cancelled - Patient discharged Performed By: #### L 100.0500, L500.2500 ####[facility] [address] [place], [address] CREAT,SERUM Normal 0.70-1.20 [facility] Comment on above: Result Comment: Canc elled via OM: Order cancelled - Patient discharged Performed By: #### L 100.0500, L500.2500 ####[facility] [address] [place], [address] eGFR Normal >60 [facility] Comment on above: Result Comment: Canc elled via OM: Order cancelled - Patient discharged Performed By: #### L 100.0500, L500.2500 ####[facility] [address] [place], [address] GAP Normal 5-15 [facility] Comment on above: Result Comment: Canc elled via OM: Order cancelled - Patient discharged Performed By: #### L 100.0500, L500.2500 ####[facility] [address] [place], [address] GLU Normal 70-99 [facility] Comment on above: Result Comment: Canc elled via OM: Order cancelled - Patient discharged Performed By: #### L 100.0500, L500.2500 ####[facility] [address] [place], [address] Potassium Normal 3.3-5.1 [facility] Comment on above: Result Comment: Canc elled via OM: Order cancelled - Patient discharged Performed By: #### L 100.0500, L500.2500 ####[facility] [address] [place], [address] Basic Metabolic Profile (BMP) Normal 133-145 [facility] Comment on above: Result Comment: Canc elled via OM: Order cancelled - Patient discharged Performed By: #### L 100.0500, L500.2500 ####[facility] [address] [place], [address] CBC-Complete Blood Cnt No Di ffon 06-25-2024 HCT Normal 40-54 [facility] Comment on above: Result Comment: Canc elled via OM: Order cancelled - Patient discharged Performed By: #### L 100.0500, L500.2500 ####[facility] [address] [place], [address] HGB Normal 13.0-16.5 [facility] Comment on above: Result Comment: Canc elled via OM: Order cancelled - Patient discharged Performed By: #### L 100.0500, L500.2500 ####[facility] [address] [place], [address] MCH Normal 27.0-32.0 [facility] Comment on above: Result Comment: Canc elled via OM: Order cancelled - Patient discharged Performed By: #### L 100.0500, L500.2500 ####[facility] [address] [place], [address] MCHC Normal 32-36 [facility] Comment on above: Result Comment: Canc elled via OM: Order cancelled - Patient discharged Performed By: #### L 100.0500, L500.2500 ####[facility] [address] [place], [address] MCV Normal 80-94 [facility] Comment on above: Result Comment: Canc elled via OM: Order cancelled - Patient discharged Performed By: #### L 100.0500, L500.2500 ####[facility] [address] [place], [address] PLT Normal 150-450 [facility] Comment on above: Result Comment: Canc elled via OM: Order cancelled - Patient discharged Performed By: #### L 100.0500, L500.2500 ####[facility] [address] [place], [address] RBC Normal 4.6-6.2 [facility] Comment on above: Result Comment: Canc elled via OM: Order cancelled - Patient discharged Performed By: #### L 100.0500, L500.2500 ####[facility] [address] [place], [address] RDW CV Normal 11.6-14.6 [facility] Comment on above: Result Comment: Canc elled via OM: Order cancelled - Patient discharged Performed By: #### L 100.0500, L500.2500 ####[facility] [address] [place], [address] RDW SD Normal 35.1-43.9 [facility] Comment on above: Result Comment: Canc elled via OM: Order cancelled - Patient discharged Performed By: #### L 100.0500, L500.2500 ####[facility] [address] [place], [address] WBC Normal 4.4-11.0 [facility] Comment on above: Result Comment: Canc elled via OM: Order cancelled - Patient discharged Performed By: #### L 100.0500, L500.2500 ####[facility] [address] [place], [address] Basic Metabolic Profile (BMP )on 06-24-2024 BUN Normal 4-19 [facility] Comment on above: Result Comment: Canc elled via OM: Order cancelled - Patient discharged Performed By: #### L 500.2500, L100.0500 ####[facility] [address] [place], [address] BUN/CRE Normal 10-20 [facility] Comment on above: Result Comment: Canc elled via OM: Order cancelled - Patient discharged Performed By: #### L 500.2500, L100.0500 ####[facility] [address] [place], [address] Calcium Normal 7.6-11.0 [facility] Comment on above: Result Comment: Canc elled via OM: Order cancelled - Patient discharged Performed By: #### L 500.2500, L100.0500 ####[facility] [address] [place], [address] CL Normal 98-108 [facility] Comment on above: Result Comment: Canc elled via OM: Order cancelled - Patient discharged Performed By: #### L 500.2500, L100.0500 ####[facility] [address] [place], [address] CO2 Normal 21.0-32.0 [facility] Comment on above: Result Comment: Canc elled via OM: Order cancelled - Patient discharged Performed By: #### L 500.2500, L100.0500 ####[facility] [address] [place], [address] CREAT,SERUM Normal 0.70-1.20 [facility] Comment on above: Result Comment: Canc elled via OM: Order cancelled - Patient discharged Performed By: #### L 500.2500, L100.0500 ####[facility] [address] [place], [address] eGFR Normal >60 [facility] Comment on above: Result Comment: Canc elled via OM: Order cancelled - Patient discharged Performed By: #### L 500.2500, L100.0500 ####[facility] [address] [place], [address] GAP Normal 5-15 [facility] Comment on above: Result Comment: Canc elled via OM: Order cancelled - Patient discharged Performed By: #### L 500.2500, L100.0500 ####[facility] [address] [place], [address] GLU Normal 70-99 [facility] Comment on above: Result Comment: Canc elled via OM: Order cancelled - Patient discharged Performed By: #### L 500.2500, L100.0500 ####[facility] [address] [place], [address] Potassium Normal 3.3-5.1 [facility] Comment on above: Result Comment: Canc elled via OM: Order cancelled - Patient discharged Performed By: #### L 500.2500, L100.0500 ####[facility] [address] [place], [address] Basic Metabolic Profile (BMP) Normal 133-145 [facility] Comment on above: Result Comment: Canc elled via OM: Order cancelled - Patient discharged Performed By: #### L 500.2500, L100.0500 ####[facility] [address] [place], [address] CBC-Complete Blood Cnt No Di ffon 06-24-2024 HCT Normal 40-54 [facility] Comment on above: Result Comment: Canc elled via OM: Order cancelled - Patient discharged Performed By: #### L 500.2500, L100.0500 ####[facility] [address] [place], [address] HGB Normal 13.0-16.5 [facility] Comment on above: Result Comment: Canc elled via OM: Order cancelled - Patient discharged Performed By: #### L 500.2500, L100.0500 ####[facility] [address] [place], [address] MCH Normal 27.0-32.0 [facility] Comment on above: Result Comment: Canc elled via OM: Order cancelled - Patient discharged Performed By: #### L 500.2500, L100.0500 ####[facility] [address] [place], [address] MCHC Normal 32-36 [facility] Comment on above: Result Comment: Canc elled via OM: Order cancelled - Patient discharged Performed By: #### L 500.2500, L100.0500 ####[facility] [address] [place], [address] MCV Normal 80-94 [facility] Comment on above: Result Comment: Canc elled via OM: Order cancelled - Patient discharged Performed By: #### L 500.2500, L100.0500 ####[facility] [address] [place], [address] PLT Normal 150-450 [facility] Comment on above: Result Comment: Canc elled via OM: Order cancelled - Patient discharged Performed By: #### L 500.2500, L100.0500 ####[facility] [address] [place], [address] RBC Normal 4.6-6.2 [facility] Comment on above: Result Comment: Canc elled via OM: Order cancelled - Patient discharged Performed By: #### L 500.2500, L100.0500 ####[facility] [address] [place], [address] RDW CV Normal 11.6-14.6 [facility] Comment on above: Result Comment: Canc elled via OM: Order cancelled - Patient discharged Performed By: #### L 500.2500, L100.0500 ####[facility] [address] [place], [address] RDW SD Normal 35.1-43.9 [facility] Comment on above: Result Comment: Canc elled via OM: Order cancelled - Patient discharged Performed By: #### L 500.2500, L100.0500 ####[facility] [address] [place], [address] WBC Normal 4.4-11.0 [facility] Comment on above: Result Comment: Canc elled via OM: Order cancelled - Patient discharged Performed By: #### L 500.2500, L100.0500 ####[facility] [address] [place], [address] Basic Metabolic Profile (BMP )on 06-23-2024 BUN Normal -19 [facility] Comment on above: Result Comment: Canc elled via OM: Order cancelled - Patient discharged Performed By: #### L 500.2500, L100.0500 ####[facility] [address] [place], [address] BUN/CRE Normal 10-20 [facility] Comment on above: Result Comment: Canc elled via OM: Order cancelled - Patient discharged Performed By: #### L 500.2500, L100.0500 ####[facility] [address] [place], [address] Calcium Normal 7.6-11.0 [facility] Comment on above: Result Comment: Canc elled via OM: Order cancelled - Patient discharged Performed By: #### L 500.2500, L100.0500 ####[facility] [address] [place], [address] CL Normal 98-108 [facility] Comment on above: Result Comment: Canc elled via OM: Order cancelled - Patient discharged Performed By: #### L 500.2500, L100.0500 ####[facility] [address] [place], [address] CO2 Normal 21.0-32.0 [facility] Comment on above: Result Comment: Canc elled via OM: Order cancelled - Patient discharged Performed By: #### L 500.2500, L100.0500 ####[facility] [address] [place], [address] CREAT,SERUM Normal 0.70-1.20 [facility] Comment on above: Result Comment: Canc elled via OM: Order cancelled - Patient discharged Performed By: #### L 500.2500, L100.0500 ####[facility] [address] [place], [address] eGFR Normal >60 [facility] Comment on above: Result Comment: Canc elled via OM: Order cancelled - Patient discharged Performed By: #### L 500.2500, L100.0500 ####[facility] [address] [place], [address] GAP Normal 5-15 [facility] Comment on above: Result Comment: Canc elled via OM: Order cancelled - Patient discharged Performed By: #### L 500.2500, L100.0500 ####[facility] [address] [place], [address] GLU Normal 70-99 [facility] Comment on above: Result Comment: Canc elled via OM: Order cancelled - Patient discharged Performed By: #### L 500.2500, L100.0500 ####[facility] [address] [facility] [place], [address] Potassium Normal 3.3-5.1 [facility] Comment on above: Result Comment: Canc elled via OM: Order cancelled - Patient discharged Performed By: #### L 500.2500, L100.0500 ####[facility] [address] [place], [address] Basic Metabolic Profile (BMP) Normal 133-145 [facility] Comment on above: Result Comment: Canc elled via OM: Order cancelled - Patient discharged Performed By: #### L 500.2500, L100.0500 ####[facility] [address] [place], [address] CBC-Complete Blood Cnt No Di ffon 06-23-2024 HCT Normal 40-54 [facility] Comment on above: Result Comment: Canc elled via OM: Order cancelled - Patient discharged Performed By: #### L 500.2500, L100.0500 ####[facility] [address] [place], [address] HGB Normal 13.0-16.5 [facility] Comment on above: Result Comment: Canc elled via OM: Order cancelled - Patient discharged Performed By: #### L 500.2500, L100.0500 ####[facility] [address] [place], [address] MCH Normal 27.0-32.0 [facility] Comment on above: Result Comment: Canc elled via OM: Order cancelled - Patient discharged Performed By: #### L 500.2500, L100.0500 ####[facility] [address] [place], [address] MCHC Normal 32-36 [facility] Comment on above: Result Comment: Canc elled via OM: Order cancelled - Patient discharged Performed By: #### L 500.2500, L100.0500 ####[facility] [address] [place], [address] MCV Normal 80-94 [facility] Comment on above: Result Comment: Canc elled via OM: Order cancelled - Patient discharged Performed By: #### L 500.2500, L100.0500 ####[facility] [address] [place], [address] PLT Normal 150-450 [facility] Comment on above: Result Comment: Canc elled via OM: Order cancelled - Patient discharged Performed By: #### L 500.2500, L100.0500 ####[facility] [address] [place], [address] RBC Normal 4.6-6.2 [facility] Comment on above: Result Comment: Canc elled via OM: Order cancelled - Patient discharged Performed By: #### L 500.2500, L100.0500 ####[facility] [address] [place], [address] RDW CV Normal 11.6-14.6 [facility] Comment on above: Result Comment: Canc elled via OM: Order cancelled - Patient discharged Performed By: #### L 500.2500, L100.0500 ####[facility] [address] [place], [address] RDW SD Normal 35.1-43.9 [facility] Comment on above: Result Comment: Canc elled via OM: Order cancelled - Patient discharged Performed By: #### L 500.2500, L100.0500 ####[facility] [address] [place], [address] WBC Normal 4.4-11.0 [facility] Comment on above: Result Comment: Canc elled via OM: Order cancelled - Patient discharged Performed By: #### L 500.2500, L100.0500 ####[facility] [address] [place], [address] Basic Metabolic Profile (BMP )on 06-22-2024 BUN Normal 4-19 [facility] Comment on above: Result Comment: Canc elled via OM: Order cancelled - Patient discharged Performed By: #### L 100.0500, L500.2500 ####[facility] [address] [place], [address] BUN/CRE Normal 10-20 [facility] Comment on above: Result Comment: Canc elled via OM: Order cancelled - Patient discharged Performed By: #### L 100.0500, L500.2500 ####[facility] [address] [place], [address] Calcium Normal 7.6-11.0 [facility] Comment on above: Result Comment: Canc elled via OM: Order cancelled - Patient discharged Performed By: #### L 100.0500, L500.2500 ####[facility] [address] [place], [address] CL Normal 98-108 [facility] Comment on above: Result Comment: Canc elled via OM: Order cancelled - Patient discharged Performed By: #### L 100.0500, L500.2500 ####[facility] [address] [place], [address] CO2 Normal 21.0-32.0 [facility] Comment on above: Result Comment: Canc elled via OM: Order cancelled - Patient discharged Performed By: #### L 100.0500, L500.2500 ####[facility] [address] [place], [address] CREAT,SERUM Normal 0.70-1.20 [facility] Comment on above: Result Comment: Canc elled via OM: Order cancelled - Patient discharged Performed By: #### L 100.0500, L500.2500 ####[facility] [address] [place], [address] eGFR Normal >60 [facility] Comment on above: Result Comment: Canc elled via OM: Order cancelled - Patient discharged Performed By: #### L 100.0500, L500.2500 ####[facility] [address] [place], [address] GAP Normal 5-15 [facility] Comment on above: Result Comment: Canc elled via OM: Order cancelled - Patient discharged Performed By: #### L 100.0500, L500.2500 ####[facility] [address] [place], [address] GLU Normal 70-99 [facility] Comment on above: Result Comment: Canc elled via OM: Order cancelled - Patient discharged Performed By: #### L 100.0500, L500.2500 ####[facility] [address] [place], [address] Potassium Normal 3.3-5.1 [facility] Comment on above: Result Comment: Canc elled via OM: Order cancelled - Patient discharged Performed By: #### L 100.0500, L500.2500 ####[facility] [address] [place], [address] Basic Metabolic Profile (BMP) Normal 133-145 [facility] Comment on above: Result Comment: Canc elled via OM: Order cancelled - Patient discharged Performed By: #### L 100.0500, L500.2500 ####[facility] [address] [place], [address] CBC-Complete Blood Cnt No Di ffon 06-22-2024 HCT Normal 40-54 [facility] Comment on above: Result Comment: Canc elled via OM: Order cancelled - Patient discharged Performed By: #### L 100.0500, L500.2500 ####[facility] [address] [place], [address] HGB Normal 13.0-16.5 [facility] Comment on above: Result Comment: Canc elled via OM: Order cancelled - Patient discharged Performed By: #### L 100.0500, L500.2500 ####[facility] [address] [place], [address] MCH Normal 27.0-32.0 [facility] Comment on above: Result Comment: Canc elled via OM: Order cancelled - Patient discharged Performed By: #### L 100.0500, L500.2500 ####[facility] [address] [place], [address] MCHC Normal 32-36 [facility] Comment on above: Result Comment: Canc elled via OM: Order cancelled - Patient discharged Performed By: #### L 100.0500, L500.2500 ####[facility] [address] [place], [address] MCV Normal 80-94 [facility] Comment on above: Result Comment: Canc elled via OM: Order cancelled - Patient discharged Performed By: #### L 100.0500, L500.2500 ####[facility] [address] [place], [address] PLT Normal 150-450 [facility] Comment on above: Result Comment: Canc elled via OM: Order cancelled - Patient discharged Performed By: #### L 100.0500, L500.2500 ####[facility] [address] [place], [address] RBC Normal 4.6-6.2 [facility] Comment on above: Result Comment: Canc elled via OM: Order cancelled - Patient discharged Performed By: #### L 100.0500, L500.2500 ####[facility] [address] [place], [address] RDW CV Normal 11.6-14.6 [facility] Comment on above: Result Comment: Canc elled via OM: Order cancelled - Patient discharged Performed By: #### L 100.0500, L500.2500 ####[facility] [address] [place], [address] RDW SD Normal 35.1-43.9 [facility] Comment on above: Result Comment: Canc elled via OM: Order cancelled - Patient discharged Performed By: #### L 100.0500, L500.2500 ####[facility] [address] [place], [address] WBC Normal 4.4-11.0 [facility] Comment on above: Result Comment: Canc elled via OM: Order cancelled - Patient discharged Performed By: #### L 100.0500, L500.2500 ####[facility] [address] [place], [address] Basic Metabolic Profile (BMP )on 06-21-2024 BUN Normal 4-19 [facility] Comment on above: Result Comment: Canc elled via OM: Order cancelled - Patient discharged Performed By: #### L 100.0500, L500.2500 ####[facility] [address] [place], [address] BUN/CRE Normal 10-20 [facility] Comment on above: Result Comment: Canc elled via OM: Order cancelled - Patient discharged Performed By: #### L 100.0500, L500.2500 ####[facility] [address] [place], [address] Calcium Normal 7.6-11.0 [facility] Comment on above: Result Comment: Canc elled via OM: Order cancelled - Patient discharged Performed By: #### L 100.0500, L500.2500 ####[facility] [address] [place], [address] CL Normal 98-108 [facility] Comment on above: Result Comment: Canc elled via OM: Order cancelled - Patient discharged Performed By: #### L 100.0500, L500.2500 ####[facility] [address] [place], [address] CO2 Normal 21.0-32.0 [facility] Comment on above: Result Comment: Canc elled via OM: Order cancelled - Patient discharged Performed By: #### L 100.0500, L500.2500 ####[facility] [address] [place], [address] CREAT,SERUM Normal 0.70-1.20 [facility] Comment on above: Result Comment: Canc elled via OM: Order cancelled - Patient discharged Performed By: #### L 100.0500, L500.2500 ####[facility] [address] [place], [address] eGFR Normal >60 [facility] Comment on above: Result Comment: Canc elled via OM: Order cancelled - Patient discharged Performed By: #### L 100.0500, L500.2500 ####[facility] [address] [place], [address] GAP Normal 5-15 [facility] Comment on above: Result Comment: Canc elled via OM: Order cancelled - Patient discharged Performed By: #### L 100.0500, L500.2500 ####[facility] [address] [place], [address] GLU Normal 70-99 [facility] Comment on above: Result Comment: Canc elled via OM: Order cancelled - Patient discharged Performed By: #### L 100.0500, L500.2500 ####[facility] [address] [place], [address] Potassium Normal 3.3-5.1 [facility] Comment on above: Result Comment: Canc elled via OM: Order cancelled - Patient discharged Performed By: #### L 100.0500, L500.2500 ####[facility] [address] [place], [address] Basic Metabolic Profile (BMP) Normal 133-145 [facility] Comment on above: Result Comment: Canc elled via OM: Order cancelled - Patient discharged Performed By: #### L 100.0500, L500.2500 ####[facility] [address] [place], [address] CBC-Complete Blood Cnt No Di ffon 06-21-2024 HCT Normal 40-54 [facility] Comment on above: Result Comment: Canc elled via OM: Order cancelled - Patient discharged Performed By: #### L 100.0500, L500.2500 ####[facility] [address] [place], [address] HGB Normal 13.0-16.5 [facility] Comment on above: Result Comment: Canc elled via OM: Order cancelled - Patient discharged Performed By: #### L 100.0500, L500.2500 ####[facility] [address] [place], [address] MCH Normal 27.0-32.0 [facility] Comment on above: Result Comment: Canc elled via OM: Order cancelled - Patient discharged Performed By: #### L 100.0500, L500.2500 ####[facility] [address] [place], [address] MCHC Normal 32-36 [facility] Comment on above: Result Comment: Canc elled via OM: Order cancelled - Patient discharged Performed By: #### L 100.0500, L500.2500 ####[facility] [address] [place], [address] MCV Normal 80-94 [facility] Comment on above: Result Comment: Canc elled via OM: Order cancelled - Patient discharged Performed By: #### L 100.0500, L500.2500 ####[facility] [address] [place], [address] PLT Normal 150-450 [facility] Comment on above: Result Comment: Canc elled via OM: Order cancelled - Patient discharged Performed By: #### L 100.0500, L500.2500 ####[facility] [address] [place], [address] RBC Normal 4.6-6.2 [facility] Comment on above: Result Comment: Canc elled via OM: Order cancelled - Patient discharged Performed By: #### L 100.0500, L500.2500 ####[facility] [address] [place], [address] RDW CV Normal 11.6-14.6 [facility] Comment on above: Result Comment: Canc elled via OM: Order cancelled - Patient discharged Performed By: #### L 100.0500, L500.2500 ####[facility] [address] [place], [address] RDW SD Normal 35.1-43.9 [facility] Comment on above: Result Comment: Canc elled via OM: Order cancelled - Patient discharged Performed By: #### L 100.0500, L500.2500 ####[facility] [address] [place], [address] WBC Normal 4.4-11.0 [facility] Comment on above: Result Comment: Canc elled via OM: Order cancelled - Patient discharged Performed By: #### L 100.0500, L500.2500 ####[facility] [address] [place], [address] Anion gap in Serum or Plasma Ordered By: Donna Hartley on 06-20-2024 Anion gap [Moles/Vol] 14 mmol/L -15 [facility] BUN/creatinine ratioOrdered By: Donna Hartley on 06-20-2024 Urea nitrogen/Creatinine [Mass ratio] 27.2 mg/mg High - [facility] Basic Metabolic Profile (BMP )on 06-20-2024 BUN/CRE 27.2 RATIO High 10-20 [facility] Comment on above: Performed By: #### L 100.0500, L500.2500 ####[facility] [address] [place], [address] Calcium [Mass/Vol] 9.5 mg/dL Normal 7.6-11.0 [facility] Comment on above: Performed By: #### L 100.0500, L500.2500 ####[facility] [address] [place], [address] Chloride [Moles/Vol] 100 mmol/L Normal 98-108 [facility] Comment on above: Performed By: #### L 100.0500, L500.2500 ####[facility] [address] [place], [address] CO2 [Moles/Vol] 24.8 mmol/L Normal 21.0-32.0 [facility] Comment on above: Performed By: #### L 100.0500, L500.2500 ####[facility] [address] [place], [address] Creatinine [Mass/Vol] 1.07 mg/dL Normal 0.70-1.20 [facility] Comment on above: Performed By: #### L 100.0500, L500.2500 ####[facility] [address] [place], [address] ECRCL 74.28 ml/min Normal 50-250 [facility] Comment on above: Performed By: #### L 100.0500, L500.2500 ####[facility] [address] [place], [address] GAP 14 Normal 5-15 [facility] Comment on above: Performed By: #### L 100.0500, L500.2500 ####[facility] [address] [place], [address] GFR/1.73 sq M.predicted among non-blacks MDRD (S/P/Bld) [Vol rate/Area] 77 mL/min/{1.73_m2} Normal >60 [facility] Comment on above: Result Comment: mL/m in/1.73m2 CKD-EPI Creatinine Equation (2020) Performed By: #### L 100.0500, L500.2500 ####[facility] [address] [place], [address] Glucose [Mass/Vol] 110 mg/dL High 70-99 [facility] Comment on above: Performed By: #### L 100.0500, L500.2500 ####[facility] [address] [place], [address] Potassium [Moles/Vol] 3.8 mmol/L Normal 3.3-5.1 [facility] Comment on above: Performed By: #### L 100.0500, L500.2500 ####[facility] [address] [place], [address] Sodium [Moles/Vol] 138 mmol/L Normal 133-145 [facility] Comment on above: Performed By: #### L 100.0500, L500.2500 ####[facility] [address] [place], [address] Urea nitrogen [Mass/Vol] 29 mg/dL High 4-19 [facility] Comment on above: Performed By: #### L 100.0500, L500.2500 ####[facility] [address] [place], [address] Bedside Glucoseon 06-20-2024 FINGERSTICK GLU 127 mg/dL High 74-106 [facility] Comment on above: Result Comment: SNEHA DUNCAN OF PATIENT CARE PER NURSING PROTOCOL Performed By: #### L 501.080 ####[facility] [address] [place], [address] CBC-Complete Blood Cnt No Di ffon 06-20-2024 Erythrocyte distribution width (RBC) [Ratio] 13.0 % Normal 11.6-14.6 [facility] Comment on above: Performed By: #### L 100.0500, L500.2500 ####[facility] [address] [place], [address] Hematocrit (Bld) [Volume fraction] 50.5 % Normal 40-54 [facility] Comment on above: Performed By: #### L 100.0500, L500.2500 ####[facility] [address] [place], [address] Hemoglobin (Bld) [Mass/Vol] 16.8 g/dL High 13.0-16.5 [facility] Comment on above: Performed By: #### L 100.0500, L500.2500 ####[facility] [address] [place], [address] MCH (RBC) [Entitic mass] 30.8 pg Normal 27.0-32.0 [facility] Comment on above: Performed By: #### L 100.0500, L500.2500 ####[facility] [address] [place], [address] MCHC (RBC) [Mass/Vol] 33.3 g/dL Normal 32-36 [facility] Comment on above: Performed By: #### L 100.0500, L500.2500 ####[facility] [address] [place], [address] MCV (RBC) [Entitic vol] 92.5 fL Normal 80-94 [facility] Comment on above: Performed By: #### L 100.0500, L500.2500 ####[facility] [address] [place], [address] Platelet mean volume (Bld) [Entitic vol] 10.1 fL Normal 6.2-12.0 [facility] Comment on above: Performed By: #### L 100.0500, L500.2500 ####[facility] [address] [place], [address] Platelets (Bld) [#/Vol] 295 10*3/uL Normal 150-450 [facility] Comment on above: Performed By: #### L 100.0500, L500.2500 ####[facility] [address] [place], [address] RBC (Bld) [#/Vol] 5.46 10*6/uL Normal 4.6-6.2 [facility] Comment on above: Performed By: #### L 100.0500, L500.2500 ####[facility] [address] [place], [address] RDW SD 43.8 fl Normal 35.1-43.9 [facility] Comment on above: Performed By: #### L 100.0500, L500.2500 ####[facility] [address] [place], [address] WBC (Bld) [#/Vol] 14.2 10*3/uL High 4.4-11.0 [facility] Comment on above: Performed By: #### L 100.0500, L500.2500 ####[facility] [address] [place], [address] Carbon dioxide, total [Moles /volume] in Central venous bloodOrdered By: Donna Hartley on 06-20-2024 CO2 [Moles/Vol] 24.8 mmol/L 21.0-32.0 [facility] Chloride assayOrdered By: Nilson Hartley on 06-20-2024 Chloride [Moles/Vol] 100 mmol/L 98-108 [facility] Discharge Instructionon 06-[address] [facility] Erythrocyte distribution wid th ratioOrdered By: Donna Hartley on 06-20-2024 Erythrocyte distribution width (RBC) [Ratio] 13.0 % 11.6-14.6 [facility] Erythrocyte distribution wid th standard deviationOrdered By: Donna Hartley on 06-20-2024 Erythrocyte distribution width (RBC) [Ratio] 43.8 fl 35.1-43.9 [facility] Glomerular filtration rate ( GFR) estimation/1.73 sq m using serum, plasma, or whole bOrdered By: Donna Hartley on 06-20-2024 GFR/1.73 sq M.predicted among non-blacks MDRD (S/P/Bld) [Vol rate/Area] 77 mL/min/{1.73_m2} >60 [facility] Glucose measurement at [facility] deOrdered By: Donna Hartley on 06-20-2024 Glucose [Mass/Vol] 127 mg/dL High 74-106 [facility] Hematocrit Auto (Bld) [Volum e fraction]Ordered By: Donna Hartley on 06-20-2024 Hematocrit (Bld) [Volume fraction] 50.5 % 40-54 [facility] Hemoglobin measurementOrdere d By: Donna Hartley on 06-20-2024 Hemoglobin (Bld) [Mass/Vol] 16.8 g/dL High 13.0-16.5 [facility] MCV (mean corpuscular volume ) determinationOrdered By: Donna Hartley on 06-20-2024 MCV (RBC) [Entitic vol] 92.5 fL 80-94 [facility] Mean corpuscular hemoglobin (MCH) determinationOrdered By: Donna Hartley on 06-20-2024 MCH (RBC) [Entitic mass] 30.8 pg 27.0-32.0 [facility] Platelet countOrdered By: Nilson Hartley on 06-20-2024 Platelets (Bld) [#/Vol] 295 10*3/uL 150-450 [facility] Potassium measurement (mass/ volume)Ordered By: Donna Hartley on 06-20-2024 Potassium (Unsp spec) [Mass/Vol] 3.8 mmol/L 3.3-5.1 [facility] RBC Auto (Bld) [#/Vol]Ordere d By: Donna Hartley on 06-20-2024 RBC (Bld) [#/Vol] 5.46 10*6/uL 4.6-6.2 [facility] Serum creatinine measurement (mass/volume)Ordered By: Donna Hartley on 06-20-2024 Creatinine [Mass/Vol] 1.07 mg/dL 0.70-1.20 [facility] Serum glucose measurement (m ass/volume)Ordered By: Donna Hartley on 06-20-2024 Glucose [Mass/Vol] 110 mg/dL High 70-99 [facility] Serum or plasma calcium brenda urement (mass/volume)Ordered By: Donna Hartley on 06-20-2024 Calcium [Mass/Vol] 9.5 mg/dL 7.6-11.0 [facility] Serum or plasma urea nitroge n measurement (mass/volume)Ordered By: Donna Hartley on 06-20-2024 Urea nitrogen [Mass/Vol] 29 mg/dL High 4-19 [facility] Sodium levelOrdered By: Gretta Hartley on 06-20-2024 Sodium [Moles/Vol] 138 mmol/L 133-145 [facility] Stress Reporton 06-20-2024 Stress Report Normal [facility] White blood cell (WBC) count Ordered By: Donna Hartley on 06-20-2024 WBC (Bld) [#/Vol] 14.2 10*3/uL High 4.4-11.0 [facility] Absolute lymphocyte countOrd ered By: Steve Donald on 06-19-2024 Lymphocytes Auto (Unsp spec) [#/Vol] 1.12 10*3/uL 0.83-4.51 [facility] Automated lymphocyte count a s percentage of total leukocytesOrdered By: Steve Donald on 06-19-2024 Lymphocytes/100 WBC Auto (Unsp spec) 9.8 % Low 19-41 [facility] Basophil percentageOrdered B y: Steve Donald on 06-19-2024 Basophils/100 WBC (Bld) 0.1 % 0-1 [facility] Bedside Glucoseon 06-19-2024 FINGERSTICK GLU 220 mg/dL High 74-106 [facility] Comment on above: Result Comment: SNEHA DUNCAN OF PATIENT CARE PER NURSING PROTOCOL Performed By: #### L 501.080 ####[facility] [address] [place], [place], [address] FINGERSTICK GLU 431 mg/dL High 74-106 [facility] Comment on above: Result Comment: SNEHA GEMENT OF PATIENT CARE PER NURSING PROTOCOL Performed By: #### L 501.080 ####[facility] [address] [place], [address] FINGERSTICK GLU 387 mg/dL High 74-106 [facility] Comment on above: Result Comment: SNEHA GEMENT OF PATIENT CARE PER NURSING PROTOCOL Performed By: #### L 501.080 ####[facility] [address] [place], [address] FINGERSTICK GLU 292 mg/dL High 74-106 [facility] Comment on above: Result Comment: SNEHA GEMENT OF PATIENT CARE PER NURSING PROTOCOL Performed By: #### L 501.080 ####[facility] [address] [place], [address] Bilirubin, totalOrdered By: Steve Donald on 06-19-2024 Bilirubin [Mass/Vol] 0.63 mg/dL 0.00-1.30 [facility] CBC W/Diff, Automatedon 06-04 Absolute Lymph 1.12 X10 3/uL Normal 0.83-4.51 [facility] Comment on above: Performed By: #### L 501.9985, L500.4050, L501.2300, L100.0100 ####[facility] [address] [place], [address] Absolute Neut 9.8 X10 3/uL High 2.0-7.7 [facility] Comment on above: Performed By: #### L 501.9985, L500.4050, L501.2300, L100.0100 ####[facility] [address] [place], [address] Basophils/100 WBC (Bld) 0.1 % Normal 0-1 [facility] Comment on above: Performed By: #### L 501.9985, L500.4050, L501.2300, L100.0100 ####[facility] [address] [place], [address] Eosinophils/100 WBC (Bld) 0.0 % Normal 0-5 [facility] Comment on above: Performed By: #### L 501.9985, L500.4050, L501.2300, L100.0100 ####[facility] [address] [place], [address] Erythrocyte distribution width (RBC) [Ratio] 12.8 % Normal 11.6-14.6 [facility] Comment on above: Performed By: #### L 501.9985, L500.4050, L501.2300, L100.0100 ####[facility] [address] [place], [address] Hematocrit (Bld) [Volume fraction] 49.9 % Normal 40-54 [facility] Comment on above: Performed By: #### L 501.9985, L500.4050, L501.2300, L100.0100 ####[facility] [address] [place], [address] Hemoglobin (Bld) [Mass/Vol] 16.8 g/dL High 13.0-16.5 [facility] Comment on above: Performed By: #### L 501.9985, L500.4050, L501.2300, L100.0100 ####[facility] [address] [place], [address] IG% 0.700 Normal 0.0-0.9 [facility] Comment on above: Result Comment: IG% - Immature Granulocytes (promyelocytes, myelocytes andmetamyelocytes) > 1% indicates that a LEFT SHIFT is Present. Performed By: #### L 501.9985, L500.4050, L501.2300, L100.0100 ####[facility] [address] [place], [address] Lymphocytes/100 WBC (Bld) 9.8 % Low 19-41 [facility] Comment on above: Performed By: #### L 501.9985, L500.4050, L501.2300, L100.0100 ####[facility] [address] [place], [address] MCH (RBC) [Entitic mass] 31.3 pg Normal 27.0-32.0 [facility] Comment on above: Performed By: #### L 501.9985, L500.4050, L501.2300, L100.0100 ####[facility] [address] [place], [address] MCHC (RBC) [Mass/Vol] 33.7 g/dL Normal 32-36 [facility] Comment on above: Performed By: #### L 501.9985, L500.4050, L501.2300, L100.0100 ####[facility] [address] [place], [address] MCV (RBC) [Entitic vol] 92.9 fL Normal 80-94 [facility] Comment on above: Performed By: #### L 501.9985, L500.4050, L501.2300, L100.0100 ####[facility] [address] [place], [address] Monocytes/100 WBC (Bld) 3.2 % Normal 0-10 [facility] Comment on above: Performed By: #### L 501.9985, L500.4050, L501.2300, L100.0100 ####[facility] [address] [place], [address] Neutrophils/100 WBC (Bld) 86.2 % High 47-70 [facility] Comment on above: Performed By: #### L 501.9985, L500.4050, L501.2300, L100.0100 ####[facility] [address] [place], [address] Nucleated RBC (Bld) [#/Vol] 0 10*3/uL Normal 0-5 [facility] Comment on above: Performed By: #### L 501.9985, L500.4050, L501.2300, L100.0100 ####[facility] [address] [place], [address] Platelet mean volume (Bld) [Entitic vol] 10.4 fL Normal 6.2-12.0 [facility] Comment on above: Performed By: #### L 501.9985, L500.4050, L501.2300, L100.0100 ####[facility] [address] [place], [address] Platelets (Bld) [#/Vol] 290 10*3/uL Normal 150-450 [facility] Comment on above: Performed By: #### L 501.9985, L500.4050, L501.2300, L100.0100 ####[facility] [address] [place], [address] RBC (Bld) [#/Vol] 5.37 10*6/uL Normal 4.6-6.2 [facility] Comment on above: Performed By: #### L 501.9985, L500.4050, L501.2300, L100.0100 ####[facility] [address] [place], [address] RDW SD 43.8 fl Normal 35.1-43.9 [facility] Comment on above: Performed By: #### L 501.9985, L500.4050, L501.2300, L100.0100 ####[facility] [facility] [address] [place], [address] WBC (Bld) [#/Vol] 11.4 10*3/uL High 4.4-11.0 [facility] Comment on above: Performed By: #### L 501.9985, L500.4050, L501.2300, L100.0100 ####[facility] [address] [place], [address] Chest 1 View (Portable)on Chest 1 View (Portable) Normal [facility] Comprehensive Metabolic Prof ilon 06-19-2024 GAP 17 High 5-15 [facility] Comment on above: Performed By: #### L 501.9985, L500.4050, L501.2300, L100.0100 ####[facility] [address] [place], [address] Albumin [Mass/Vol] 4.1 g/dL Normal 3.4-4.8 [facility] Comment on above: Performed By: #### L 501.9985, L500.4050, L501.2300, L100.0100 ####[facility] [address] [place], [address] Albumin/Globulin [Mass ratio] 1.2 {ratio} Normal 0.9-2.4 [facility] Comment on above: Performed By: #### L 501.9985, L500.4050, L501.2300, L100.0100 ####[facility] [address] [place], [address] ALK PHOS 89 U/L Normal 40-129 [facility] Comment on above: Performed By: #### L 501.9985, L500.4050, L501.2300, L100.0100 ####[facility] [address] [place], [address] ALT [Catalytic activity/Vol] 38 U/L Normal <=46 [facility] Comment on above: Performed By: #### L 501.9985, L500.4050, L501.2300, L100.0100 ####[facility] [address] [place], [address] AST [Catalytic activity/Vol] 26 U/L Normal <=37 [facility] Comment on above: Performed By: #### L 501.9985, L500.4050, L501.2300, L100.0100 ####[facility] [address] [place], [address] Bilirubin [Mass/Vol] 0.63 mg/dL Normal 0.00-1.30 [facility] Comment on above: Performed By: #### L 501.9985, L500.4050, L501.2300, L100.0100 ####[facility] [address] [place], [address] BUN/CRE 24.5 RATIO High 10-20 [facility] Comment on above: Performed By: #### L 501.9985, L500.4050, L501.2300, L100.0100 ####[facility] [address] [place], [address] Calcium [Mass/Vol] 9.6 mg/dL Normal 7.6-11.0 [facility] Comment on above: Performed By: #### L 501.9985, L500.4050, L501.2300, L100.0100 ####[facility] [address] [place], [address] Chloride [Moles/Vol] 97 mmol/L Low 98-108 [facility] Comment on above: Performed By: #### L 501.9985, L500.4050, L501.2300, L100.0100 ####[facility] [address] [place], [address] CO2 [Moles/Vol] 19.8 mmol/L Low 21.0-32.0 [facility] Comment on above: Performed By: #### L 501.9985, L500.4050, L501.2300, L100.0100 ####[facility] [address] [place], [address] Creatinine [Mass/Vol] 1.12 mg/dL Normal 0.70-1.20 [facility] Comment on above: Performed By: #### L 501.9985, L500.4050, L501.2300, L100.0100 ####[facility] [address] [place], [address] ECRCL 70.97 ml/min Normal 50-250 [facility] Comment on above: Performed By: #### L 501.9985, L500.4050, L501.2300, L100.0100 ####[facility] [address] [place], [address] GFR/1.73 sq M.predicted among non-blacks MDRD (S/P/Bld) [Vol rate/Area] 73 mL/min/{1.73_m2} Normal >60 [facility] Comment on above: Result Comment: mL/m in/1.73m2 CKD-EPI Creatinine Equation (2020) Performed By: #### L 501.9985, L500.4050, L501.2300, L100.0100 ####[facility] [address] [place], [address] Globulin (S) [Mass/Vol] 3.5 g/dL Normal 2.2-4.2 [facility] Comment on above: Performed By: #### L 501.9985, L500.4050, L501.2300, L100.0100 ####[facility] [address] [place], [address] Glucose [Mass/Vol] 324 mg/dL High 70-99 [facility] Comment on above: Performed By: #### L 501.9985, L500.4050, L501.2300, L100.0100 ####[facility] [address] [place], [address] Potassium [Moles/Vol] 4.3 mmol/L Normal 3.3-5.1 [facility] Comment on above: Performed By: #### L 501.9985, L500.4050, L501.2300, L100.0100 ####[facility] [address] [place], [address] Sodium [Moles/Vol] 134 mmol/L Normal 133-145 [facility] Comment on above: Performed By: #### L 501.9985, L500.4050, L501.2300, L100.0100 ####[facility] [address] [place], [address] T PROT 7.6 g/dL Normal 5.9-8.4 [facility] Comment on above: Performed By: #### L 501.9985, L500.4050, L501.2300, L100.0100 ####[facility] [address] [place], [address] Urea nitrogen [Mass/Vol] 27 mg/dL High 4-19 [facility] Comment on above: Performed By: #### L 501.9985, L500.4050, L501.2300, L100.0100 ####[facility] [address] [place], [address] Eosinophil percentageOrdered By: Steve Donald on 06-19-2024 Eosinophils/100 WBC (Bld) 0.0 % 0-5 [facility] Hemoglobin A1con 06-19-2024 HbA1c (Bld) [Mass fraction] 12.4 % Normal <=5.6 [facility] Comment on above: Performed By: #### L 501.9985, L500.4050, L501.2300, L100.0100 ####[facility] [address] [place], [address] Hemoglobin A1c percentageOrd ered By: Steve Donald on 06-19-2024 HbA1c (Bld) [Mass fraction] 12.4 % >5.7 [facility] Immature granulocytes/100 WB C Auto (Bld)Ordered By: Steve Donald on 06-19-2024 Immature granulocytes/100 WBC (Bld) 0.700 % 0.0-0.9 [facility] Monocyte percentageOrdered B y: Steve Donald on 06-19-2024 Monocytes/100 WBC (Bld) 3.2 % 0-10 [facility] Neutrophil percentageOrdered By: Steve Donald on 06-19-2024 Neutrophils/100 WBC (Bld) 86.2 % High 47-70 [facility] No Panel InformationOrdered By: Steve Donald on 06-19-2024 26 U/L <38 [facility] Phosphoruson 06-19-2024 Phosphate [Mass/Vol] 4.4 mg/dL Normal 2.7-4.5 [facility] Comment on above: Performed By: #### L 501.9985, L500.4050, L501.2300, L100.0100 ####[facility] [address] [place], [place], [id number] Serum globulin measurementOr dered By: Steve Donald on 06-19-2024 Globulin (S) [Mass/Vol] 3.5 g/dL 2.2-4.2 [facility] Serum or plasma alanine martino otransferase (ALT) measurementOrdered By: Steve Donald on 06-19-2024 ALT [Catalytic activity/Vol] 38 U/L <47 [facility] Serum or plasma albumin brenda urement (mass/volume)Ordered By: Steve Donald on 06-19-2024 Albumin [Mass/Vol] 4.1 g/dL 3.4-4.8 [facility] Serum or plasma albumin/glob ulin mass ratioOrdered By: Steve Donald on 06-19-2024 Albumin/Globulin [Mass ratio] 1.2 {ratio} 0.9-2.4 [facility] Serum or plasma alkaline yulia sphatase measurementOrdered By: Steve Donald on 06-19-2024 ALP [Catalytic activity/Vol] 89 U/L 40-129 [facility] Total proteinOrdered By: Sidney Donald on 06-19-2024 Protein [Mass/Vol] 7.6 g/dL 5.9-8.4 [facility] Assessment of wrist artery p atency prior to arterial punctureOrdered By: Steve Donald on 06-18-2024 Arterial patency Wrist artery --pre arterial puncture Positive [facility] Bedside Glucoseon 06-18-2024 FINGERSTICK GLU 434 mg/dL High 74-106 [facility] Comment on above: Result Comment: SNEHA GEMENT OF PATIENT CARE PER NURSING PROTOCOL Performed By: #### L 501.080 ####[facility] [address] [place], [address] FINGERSTICK GLU 429 mg/dL High -106 [facility] Comment on above: Result Comment: Dr Manjit solis FollowedMANAGEMENT OF PATIENT CARE PER NURSING PROTOCOL Performed By: #### L 501.080 ####[facility] [address] [place], [address] FINGERSTICK GLU 321 mg/dL High [address] [place] [address] Comment on above: Result Comment: SNEHA GEMENT OF PATIENT CARE PER NURSING PROTOCOL Performed By: #### L 501.080 ####[facility] [address] [place], [address] FINGERSTICK GLU 282 mg/dL High [facility]106 [facility] Comment on above: Result Comment: SNEHA GEMENT OF PATIENT CARE PER NURSING PROTOCOL Performed By: #### L 501.080 ####[facility] [address] [place], [address] Bilirubin Test strip Ql (U)O rdered By: Steve Donald on 06-18-2024 Bilirubin Ql (U) Negative Negative [facility] Blood Gases by CPSon 025 MOY TEST Positive Normal [facility] Comment on above: Performed By: #### L 9000.0800 ####[facility] [address] [place], [address] Base excess Calc (Bld) [Moles/Vol] 2 mmol/L Normal -2 to +2 [facility] Comment on above: Performed By: #### L 9000.0800 ####[facility] [address] [place], [address] Blood Gas Type ART Normal [facility] Comment on above: Performed By: #### L 8999.0800 ####[facility] [address] [place], [address] CO2 [Moles/Vol] 28 mmol/L Normal [facility] Comment on above: Performed By: #### L 0.0800 ####[facility] [address] [place], [address] Comment 17/11 12 30% Normal [facility] Comment on above: Performed By: #### L 0.0800 ####[facility] [address] [place], [address] FI02 30.0 Normal [facility] Comment on above: Performed By: #### L 8999.0800 ####[facility] [address] [place], [address] HCO3 (Bld) [Moles/Vol] 26.7 mmol/L High 22-26 [facility] Comment on above: Performed By: #### L 8999.0800 ####[facility] [address] [place], [address] Mode Not entered Normal [facility] Comment on above: Performed By: #### L 8999.0800 ####[facility] [address] [place], [address] O2 Delivery Dev BiPAP Normal [facility] Comment on above: Performed By: #### L 8999.0800 ####[facility] [address] [place], [address] pCO2 41.5 mmHg Normal 35-45 [facility] Comment on above: Performed By: #### L 9000.0800 ####[facility] [address] [place], [address] pH (Bld) 7.42 [pH] Normal 7.35-7.45 [facility] Comment on above: Performed By: #### L 9000.0800 ####[facility] [address] [place], [address] PO2 73 mmHG Low 75-100 [facility] Comment on above: Performed By: #### L 9000.0800 ####[facility] [address] [place], [address] SITE R Radial Normal [facility] Comment on above: Performed By: #### L 9000.0800 ####[facility] [address] [place], [address] SO2 95 Normal 95-99 [facility] Comment on above: Performed By: #### L 9000.0800 ####[facility] [address] [place], [address] Blood base excess determinat ionOrdered By: Steve Donald on 06-18-2024 Base excess Calc (BldV) [Moles/Vol] 2 mmol/L -2-2 [facility] Blood bicarbonate measuremen tOrdered By: Steve Donald on 06-18-2024 HCO3 (Bld) [Moles/Vol] 26.7 mmol/L High 22-26 W [facility] CTA Chest W/WO Contraston CTA Chest W/WO Contrast Normal [facility] Consultation - Cardiologyon 06-18-2024 Consultation - Cardiology Normal [facility] Echo Complete W/ Contraston 06-18-2024 Echo Complete W/ Contrast Normal [facility] Emergency Department Summary on 06-18-2024 Emergency Department Summary Normal [facility] H AND P Exam - Hospitaliston 06-18-2024 H&P Exam - Hospitalist Normal [facility] Influenza virus A and B and SARS-CoV-2 (COVID-19) and Respiratory syncytial virus RNAOrdered By: Jevon Osorio on 06-18-2024 SARS-CoV-2 (COVID-19) RNA HAYDER+probe Ql (Unsp spec) [facility] Ketones Test strip Ql (U)Ord ered By: Steve Donald on 06-18-2024 Ketones Ql (U) Negative Negative [facility] L499.0042on 06-18-2024 Trop T High Sen 84 ng/L Invalid Interpretation Code <=22 [facility] Comment on above: Result Comment: Crit ical Result(s) Called at: 0219 by:??NBURNS TO EFINKResults read back by same. Performed By: #### L 499.0042 ####[facility] [address] [place], [address] L499.0043on 06-18-2024 Trop T High Sen 88 ng/L Invalid Interpretation Code <=22 [facility] Comment on above: Result Comment: Crit ical Result(s) Called at 0334: by: NARAYAN TOEAFFSHERLY??Results read back by same. Performed By: #### L 499.0043 ####[facility] [address] [place], [address] L503.7505on 06-18-2024 Natriuretic peptide B (Bld) [Mass/Vol] 2490 pg/mL High <=900 [facility] Comment on above: Result Comment: Hear t Failure Unlikely: < 300 pg/mLHeart Failure Likely< 50 Years: > 450 pg/mL50-75 Years: > 900 pg/mL>75 Years: > 1800 pg/mL Performed By: #### L 503.7505 ####[facility] [address] [place], [address] M100.678on 06-18-2024 M100.678 SARS-CoV-2 (COVID 19 ) Negative INFLUENZA A Negative INFLUENZA B Negative RSV PCR Negative Normal [facility] Comment on above: Performed By: #### M 100.678 ####[facility] [address] [place], [place], [address] Magnesiumon 06-18-2024 Magnesium [Mass/Vol] 2.0 mg/dL Normal 1.5-2.2 [facility] Comment on above: Performed By: #### L 501.5200, L501.9520 ####[facility] [address] [place], [place], [address] Magnesium measurement (mass/ volume)Ordered By: Steve Donald on 06-18-2024 Magnesium (Unsp spec) [Mass/Vol] 2.0 mg/dL 1.5-2.2 [facility] Measurement, pHOrdered By: Jovana Donald on 06-18-2024 pH (Unsp spec) 7.42 [pH] 7.35-7.45 [facility] Mucus LM Ql (Urine sed)Order ed By: Steve Donald on 06-18-2024 Mucus Ql (Urine sed) 0 SEEN /hpf [facility] Nitrite Test strip Ql (U)Ord ered By: Steve Donald on 06-18-2024 Nitrite Ql (U) Negative Negative [facility] No Panel InformationOrdered By: Steve Donald on 06-18-2024 ART [facility] R Radial [facility] Not entered [facility] BiPAP [facility] 17/11 12 30% [facility] Protein Test strip Ql (U)Ord ered By: Steve Donald on 06-18-2024 Protein Ql (U) Negative Negative [facility] RESPIRATORY PANEL MOLECULARo n 06-18-2024 RP PANEL Normal [facility] Comment on above: Performed By: #### M 100.638 ####[facility] [address] [place], [place], [address] Respiratory pathogens detect ion panel by molecular detection methodOrdered By: Steve Donald on 06-18-2024 Respiratory pathogens DNA and RNA panel HAYDER+probe (Resp) [facility] Squamous epithelial cells de tection in urine sediment by light microscopyOrdered By: Steve Donald on 06-18-2024 Epithelial cells.squamous LM Ql (Urine sed) 0-5 SEEN /hpf 0-5 [facility] TSH DL <= 0.005 mIU/L QnOrde red By: Steve Donald on 06-18-2024 TSH Qn 0.897 uIU/mL 0.300-4.20 0 [facility] Thyroid Stim Hormone (TSH)on 06-18-2024 TSH 0.897 uIU/mL Normal 0.300-4.20 0 [facility] Comment on above: Performed By: #### L 501.5200, L501.9520 ####[facility] [address] [place], [place], [address] Total carbon dioxide measure mentOrdered By: Steve Donald on 06-18-2024 CO2 [Moles/Vol] 28 mmol/L [facility] Troponin T.cardiac [Mass/vol ume] in Serum or Plasma by High sensitivity methodOrdered By: Jevon Osorio on 06-18-2024 Troponin T.cardiac High sensitivity method [Mass/Vol] 88 ng/L High <22 [facility] Troponin T.cardiac High sensitivity method [Mass/Vol] 84 ng/L High <22 [facility] Urinalysis, Completeon 06-18 BACTERIA RARE Normal None Seen [facility] Comment on above: Order Comment: CLEAN CATCH Performed By: #### L 400.0001 ####[facility] [address] [place], [place], [address] EPI,SQUAMOUS 0-5 SEEN Normal 0-5 [facility] Comment on above: Order Comment: CLEAN CATCH Performed By: #### L 400.0001 ####[facility] [address] [place], [place], [address] RBC 0 SEEN Normal 0-5 [facility] Comment on above: Order Comment: CLEAN CATCH Performed By: #### L 400.0001 ####[facility] [address] [place], [place], [address] WBC 0-5 SEEN Normal 0-5 [facility] Comment on above: Order Comment: CLEAN CATCH Performed By: #### L 400.0001 ####[facility] [address] [place], [address] BILIRUBIN URINE Negative Normal Negative [facility] Comment on above: Order Comment: CLEAN CATCH Performed By: #### L 400.0001 ####[facility] [address] [place], [address] Clarity (U) Clear Normal Clear [facility] Comment on above: Order Comment: CLEAN CATCH Performed By: #### L 400.0001 ####[facility] [address] [place], [address] Color (U) Yellow Normal Yellow [facility] Comment on above: Order Comment: CLEAN CATCH Performed By: #### L 400.0001 ####[facility] [address] [place], [address] GLUCOSE, UR 1000 mg/dl Abnormal Normal [facility] Comment on above: Order Comment: CLEAN CATCH Performed By: #### L 400.0001 ####[facility] [address] [place], [address] KETONE UR Negative Normal Negative [facility] Comment on above: Order Comment: CLEAN CATCH Performed By: #### L 400.0001 ####[facility] [address] [place], [address] LEUK ESTERASE Negative Normal Negative [facility] Comment on above: Order Comment: CLEAN CATCH Performed By: #### L 400.0001 ####[facility] [address] [place], [address] Nitrite Ql (U) Negative Normal Negative [facility] Comment on above: Order Comment: CLEAN CATCH Performed By: #### L 400.0001 ####[facility] [address] [place], [address] OCCULT BLOOD-UR Negative Normal Negative [facility] Comment on above: Order Comment: CLEAN CATCH Performed By: #### L 400.0001 ####[facility] [address] [place], [address] pH UR 6.0 Normal 5.0 - 8.0 [facility] Comment on above: Order Comment: CLEAN CATCH Performed By: #### L 400.0001 ####[facility] [address] [place], [address] PROT DIPSTX Negative Normal Negative [facility] Comment on above: Order Comment: CLEAN CATCH Performed By: #### L 400.0001 ####[facility] [address] [place], [address] SP.GR. DIPSTX 1.010 Normal 1.002-1.03 0 [facility] Comment on above: Order Comment: CLEAN CATCH Performed By: #### L 400.0001 ####[facility] [address] [place], [address] UROBILI Normal Normal Normal [facility] Comment on above: Order Comment: CLEAN CATCH Performed By: #### L 400.0001 ####[facility] [address] [place], [address] Mucus Ql (Urine sed) 0 SEEN Normal [facility] Comment on above: Order Comment: CLEAN CATCH Performed By: #### L 400.0001 ####[facility] [address] [place], [address] Urine clarityOrdered By: Sidney Donald on 06-18-2024 Clarity (U) Clear Clear [facility] Urine color determinationOrd ered By: Steve Donald on 06-18-2024 Color (U) Yellow Yellow [facility] Urine glucose detectionOrder ed By: Steve Donald on 06-18-2024 Glucose Ql (U) 1000 mg/dl High Normal [facility] Urine leukocyte esterase det ection by dipstickOrdered By: Steve Donald on 06-18-2024 Leukocyte esterase Test strip Ql (U) Negative Negative [facility] Urine pHOrdered By: Steve caraballo on 06-18-2024 pH (U) 6.0 [pH] 5.0 - 8.0 [facility] Urine sediment bacteria coun t by microscopy (number/high power field)Ordered By: Steve Donald on 06-18-2024 Bacteria LM.HPF (Urine sed) [#/Area] RARE /hpf None Seen [facility] Urine specific gravity measu rementOrdered By: Steve Donald on 06-18-2024 Specific gravity (U) [Rel density] 1.010 1.002-1.03 0 [facility] Urine urobilinogen measureme ntOrdered By: Steve Donald on 06-18-2024 Urobilinogen Ql (U) Normal mg/dl Normal [facility] White blood cell countOrdere d By: Steve Donald on 06-18-2024 White blood cell count 0-5 SEEN /hpf 0-5 [facility] 12 Lead EKGon 06-17-2024 12 Lead EKG Normal [facility] Basic Metabolic Profile (BMP )on 06-17-2024 BUN/CRE 18.7 RATIO Normal 10-20 [facility] Comment on above: Performed By: #### L 501.4021, L100.0100, L500.2500 ####[facility] [address] [place], [address] Calcium [Mass/Vol] 9.4 mg/dL Normal 7.6-11.0 [facility] Comment on above: Performed By: #### L 501.4021, L100.0100, L500.2500 ####[facility] [address] [place], [address] Chloride [Moles/Vol] 100 mmol/L Normal 98-108 [facility] Comment on above: Performed By: #### L 501.4021, L100.0100, L500.2500 ####[facility] [address] [place], [address] CO2 [Moles/Vol] 21.0 mmol/L Normal 21.0-32.0 [facility] Comment on above: Performed By: #### L 501.4021, L100.0100, L500.2500 ####[facility] [address] [place], [address] Creatinine [Mass/Vol] 0.94 mg/dL Normal 0.70-1.20 [facility] Comment on above: Performed By: #### L 501.4021, L100.0100, L500.2500 ####[facility] [address] [place], [address] GAP 14 Normal 5-15 [facility] Comment on above: Performed By: #### L 501.4021, L100.0100, L500.2500 ####[facility] [address] [place], [address] GFR/1.73 sq M.predicted among non-blacks MDRD (S/P/Bld) [Vol rate/Area] 91 mL/min/{1.73_m2} Normal >60 [facility] Comment on above: Result Comment: mL/m in/1.73m2 CKD-EPI Creatinine Equation (2020) Performed By: #### L 501.4021, L100.0100, L500.2500 ####[facility] [address] [place], [address] Glucose [Mass/Vol] 438 mg/dL High 70-99 [facility] Comment on above: Performed By: #### L 501.4021, L100.0100, L500.2500 ####[facility] [address] [place], [address] Potassium [Moles/Vol] 4.5 mmol/L Normal 3.3-5.1 [facility] Comment on above: Performed By: #### L 501.4021, L100.0100, L500.2500 ####[facility] [address] [place], [address] Sodium [Moles/Vol] 134 mmol/L Normal 133-145 [facility] [facility] Comment on above: Performed By: #### L 501.4021, L100.0100, L500.2500 ####[facility] [address] [place], [address] Urea nitrogen [Mass/Vol] 18 mg/dL Normal 4-19 [facility] Comment on above: Performed By: #### L 501.4021, L100.0100, L500.2500 ####[facility] [address] [place], [address] CBC W/Diff, Automatedon 06-04 Absolute Lymph 2.17 X10 3/uL Normal 0.83-4.51 [facility] Comment on above: Performed By: #### L 501.4021, L100.0100, L500.2500 ####[facility] [address] [place], [address] Absolute Neut 2.9 X10 3/uL Normal 2.0-7.7 [facility] Comment on above: Performed By: #### L 501.4021, L100.0100, L500.2500 ####[facility] [address] [place], [address] Basophils/100 WBC (Bld) 0.3 % Normal 0-1 [facility] Comment on above: Performed By: #### L 501.4021, L100.0100, L500.2500 ####[facility] [address] [place], [address] Eosinophils/100 WBC (Bld) 2.2 % Normal 0-5 [facility] Comment on above: Performed By: #### L 501.4021, L100.0100, L500.2500 ####[facility] [address] [place], [address] Erythrocyte distribution width (RBC) [Ratio] 13.1 % Normal 11.6-14.6 [facility] Comment on above: Performed By: #### L 501.4021, L100.0100, L500.2500 ####[facility] [address] [place], [address] Hematocrit (Bld) [Volume fraction] 46.2 % Normal 40-54 [facility] Comment on above: Performed By: #### L 501.4021, L100.0100, L500.2500 ####[facility] [address] [place], [address] Hemoglobin (Bld) [Mass/Vol] 15.2 g/dL Normal 13.0-16.5 [facility] Comment on above: Performed By: #### L 501.4021, L100.0100, L500.2500 ####[facility] [address] [place], [address] IG% 0.200 Normal 0.0-0.9 [facility] Comment on above: Result Comment: IG% - Immature Granulocytes (promyelocytes, myelocytes andmetamyelocytes) > 1% indicates that a LEFT SHIFT is Present. Performed By: #### L 501.4021, L100.0100, L500.2500 ####[facility] [address] [place], [address] Lymphocytes/100 WBC (Bld) 37.2 % Normal 19-41 [facility] Comment on above: Performed By: #### L 501.4021, L100.0100, L500.2500 ####[facility] [address] [place], [address] MCH (RBC) [Entitic mass] 31.3 pg Normal 27.0-32.0 [facility] Comment on above: Performed By: #### L 501.4021, L100.0100, L500.2500 ####[facility] [address] [place], [address] MCHC (RBC) [Mass/Vol] 32.9 g/dL Normal 32-36 [facility] Comment on above: Performed By: #### L 501.4021, L100.0100, L500.2500 ####[facility] [address] [place], [address] MCV (RBC) [Entitic vol] 95.1 fL High 80-94 [facility] Comment on above: Performed By: #### L 501.4021, L100.0100, L500.2500 ####[facility] [address] [place], [address] Monocytes/100 WBC (Bld) 10.3 % High 0-10 [facility] Comment on above: Performed By: #### L 501.4021, L100.0100, L500.2500 ####[facility] [address] [place], [address] Neutrophils/100 WBC (Bld) 49.8 % Normal 47-70 [facility] Comment on above: Performed By: #### L 501.4021, L100.0100, L500.2500 ####[facility] [address] [place], [address] Nucleated RBC (Bld) [#/Vol] 0 10*3/uL Normal 0-5 [facility] Comment on above: Performed By: #### L 501.4021, L100.0100, L500.2500 ####[facility] [address] [place], [address] Platelet mean volume (Bld) [Entitic vol] 10.3 fL Normal 6.2-12.0 [facility] Comment on above: Performed By: #### L 501.4021, L100.0100, L500.2500 ####[facility] [address] [place], [address] Platelets (Bld) [#/Vol] 244 10*3/uL Normal 150-450 [facility] Comment on above: Performed By: #### L 501.4021, L100.0100, L500.2500 ####[facility] [address] [place], [address] RBC (Bld) [#/Vol] 4.86 10*6/uL Normal 4.6-6.2 [facility] Comment on above: Performed By: #### L 501.4021, L100.0100, L500.2500 ####[facility] [address] [place], [address] RDW SD 45.7 fl High 35.1-43.9 [facility] Comment on above: Performed By: #### L 501.4021, L100.0100, L500.2500 ####[facility] [address] [place], [address] WBC (Bld) [#/Vol] 5.8 10*3/uL Normal 4.4-11.0 [facility] Comment on above: Performed By: #### L 501.4021, L100.0100, L500.2500 ####[facility] [address] [place], [address] Chest 1 View (Portable)on Chest 1 View (Portable) Normal [facility] L501.4021on 06-17-2024 Trop T High Sen 76 ng/L Invalid Interpretation Code <=22 [facility] Comment on above: Result Comment: Crit ical Result(s) Called at: 2342 by: NARAYAN LAMBERT??Results read back by same. Performed By: #### L 501.4021, L100.0100, L500.2500 ####[facility] [address] [place], [address] No Panel InformationOrdered By: ED PROVIDER on 06-17-2024 76 ng/L High <22 [facility] No Panel InformationOrdered By: Jevon Osorio on 06-17-2024 2490 pg/mL High <900 [facility] Ankle Brachial Indexon 06-13 Ankle Brachial Index Normal [facility] Arterial Doppler ultrasound reportOrdered By: Saúl Flowers on 06-13-2024 Study report [facility] [address] [place] [address] US Art Duplex Unilat Lower Ext 06/13/24 1426 MR#: [id number] Acct: [id number] Name: JAYLEN MEJIA Sr. Rep #:[id number] [...] Performed By: Solange Pena, RDCS, RVT 06/13/24 1633 Date _ Saúl Flowers MD CC: NILSON Heck; Dr. Xiang Rogers, DO ~ Date Dictated: 06/13/24 1426 Date Transcribed: 06/13/241632 Telephone Sales Agent: Signed [facility] Work Phone: Arterial study reportOrdered By: Saúl Flowers on 06-13-2024 Noninvasive arteriosclerosis study report [facility] [address] [facility] [place] [address] Ankle Brachial Index 06/13/24 1351 MR#: [id number] Acct: [id number] Name: JAYLEN MEJIA Sr. Rep #:[id number] : 1960 64 From: Saúl Whaley Attending Dr: NILSON Heck Stat us: REG CLI Ordering Dr: Lubna Manley Date: Location: [facility] Sex: M C Admitted: Reason For [...] Dictated: 06/13/24 1351 Date Transcribed: 06/13/24 1630 Telephone Sales Agent: Signed [facility] Work Phone: US Art Duplex Unilat Lower E xton 06-13-2024 US Art Duplex Unilat Lower Ext Normal [facility] Chest 1 View (Portable)on Chest 1 View (Portable) Normal [facility] Emergency Department Summary on 05-21-2024 Emergency Department Summary Normal [facility] Influenza virus A and B and SARS-CoV-2 (COVID-19) and Respiratory syncytial virus RNAOrdered By: Saúl Aguilar on 05-21-2024 SARS-CoV-2 (COVID-19) RNA HAYDER+probe Ql (Unsp spec) [facility] M100.678on 05-21-2024 M100.678 SARS-CoV-2 (COVID 19 ) Negative INFLUENZA A Negative INFLUENZA B Negative RSV PCR Negative Normal [facility] Comment on above: Performed By: #### M 100.678 ####[facility] [address] [place], [address] MR/BMS.BVSon 05-17-2024 MR/BMS.BVS Normal [facility] Echo Complete W/ Contraston 05-09-2024 Echo Complete W/ Contrast Normal [facility] Internal Medicine Office Vis iton 05-03-2024 Internal Medicine Office Visit Normal [facility] Laboratory - Hematology and Cell countson 05-03-2024 HbA1c (Bld) [Mass fraction] 11.4 % High 4.2-6.3 [facility] ACT Activated Clotting Timeo n 04-20-2024 ACTk CLOT TIME 222 sec High 74-137 [facility] Comment on above: Performed By: #### L 9100.0100 ####[facility] [address] [place], [address] Activated clotting timeOrder ed By: Saúl Flowers on 04-20-2024 Activated Clotting Time 222 sec High 74-137 [facility] Basic Metabolic Profile (BMP )on 04-20-2024 BUN/CRE 15.1 RATIO Normal 10-20 [facility] Comment on above: Performed By: #### L 500.2500, L100.0500 ####[facility] [address] [place], [address] CA,Total 9.3 mg/dL Normal 8.5-10.1 [facility] Comment on above: Performed By: #### L 500.2500, L100.0500 ####[facility] [address] [place], [address] Chloride [Moles/Vol] 103 mmol/L Normal 98-107 [facility] Comment on above: Performed By: #### L 500.2500, L100.0500 ####[facility] [address] [place], [address] CO2 [Moles/Vol] 26.0 mmol/L Normal 21.0-32.0 [facility] Comment on above: Performed By: #### L 500.2500, L100.0500 ####[facility] [address] [place], [address] Creatinine [Mass/Vol] 1.06 mg/dL Normal 0.70-1.30 [facility] Comment on above: Result Comment: The validity of the calculated GFR GFRAA in patients over70 years has not been determined. Clinical correlation isessential. Performed By: #### L 500.2500, L100.0500 ####[facility] [address] [place], [address] ECRCL 78.67 ml/min Normal [facility] Comment on above: Performed By: #### L 500.2500, L100.0500 ####[facility] [address] [place], [address] EST GFR - AA 90 mL/min Normal >60 [facility] Comment on above: Result Comment: Afri can Gabonese GFR Calc Performed By: #### L 500.2500, L100.0500 ####[facility] [address] [place], [address] GAP 6 Normal 5-15 [facility] Comment on above: Performed By: #### L 500.2500, L100.0500 ####[facility] [address] [place], [address] GFR/1.73 sq M.predicted among non-blacks MDRD (S/P/Bld) [Vol rate/Area] 75 mL/min/{1.73_m2} Normal >60 [facility] Comment on above: Result Comment: Non- GFR Calc Performed By: #### L 500.2500, L100.0500 ####[facility] [address] [place], [address] Glucose [Mass/Vol] 228 mg/dL High 74-106 [facility] Comment on above: Result Comment: Gluc ose result greater than or equal to 200 mg/dLsuggests DIABETES MELLITUS per A.D.A. criteria. Performed By: #### L 500.2500, L100.0500 ####[facility] [address] [place], [address] Potassium [Moles/Vol] 4.3 mmol/L Normal 3.5-5.1 [facility] Comment on above: Performed By: #### L 500.2500, L100.0500 ####[facility] [address] [place], [address] Sodium [Moles/Vol] 135 mmol/L Low 136-145 [facility] Comment on above: Performed By: #### L 500.2500, L100.0500 ####[facility] [address] [place], [address] Urea nitrogen [Mass/Vol] 16 mg/dL Normal 7-18 [facility] Comment on above: Performed By: #### L 500.2500, L100.0500 ####[facility] [address] [place], [address] Blood urea nitrogen (BUN)/cr eatinine ratioOrdered By: Saúl Flowers on 04-20-2024 Urea nitrogen/Creatinine [Mass ratio] 15.1 mg/mg 10-20 [facility] CBC-Complete Blood Cnt No Di ffon 04-20-2024 Erythrocyte distribution width (RBC) [Ratio] 12.9 % Normal 11.6-14.6 [facility] Comment on above: Performed By: #### L 500.2500, L100.0500 ####[facility] [address] [place], [address] Hematocrit (Bld) [Volume fraction] 52.2 % Normal 40-54 [facility] Comment on above: Performed By: #### L 500.2500, L100.0500 ####[facility] [address] [place], [address] Hemoglobin (Bld) [Mass/Vol] 17.8 g/dL High 13.0-16.5 [facility] Comment on above: Performed By: #### L 500.2500, L100.0500 ####[facility] [address] [place], [address] MCH (RBC) [Entitic mass] 31.7 pg Normal 27.0-32.0 [facility] Comment on above: Performed By: #### L 500.2500, L100.0500 ####[facility] [address] [place], [address] MCHC (RBC) [Mass/Vol] 34.1 g/dL Normal 32-36 [facility] Comment on above: Performed By: #### L 500.2500, L100.0500 ####[facility] [address] [place], [address] MCV (RBC) [Entitic vol] 92.9 fL Normal 80-94 [facility] Comment on above: Performed By: #### L 500.2500, L100.0500 ####[facility] [address] [place], [address] Platelet mean volume (Bld) [Entitic vol] 9.5 fL Normal 6.2-12.0 [facility] Comment on above: Performed By: #### L 500.2500, L100.0500 ####[facility] [address] [place], [address] Platelets (Bld) [#/Vol] 271 10*3/uL Normal 150-450 [facility] Comment on above: Performed By: #### L 500.2500, L100.0500 ####[facility] [address] [place], [address] RBC (Bld) [#/Vol] 5.62 10*6/uL Normal 4.6-6.2 [facility] Comment on above: Performed By: #### L 500.2500, L100.0500 ####[facility] [address] [place], [address] RDW SD 43.8 fl Normal 35.1-43.9 [facility] Comment on above: Performed By: #### L 500.2500, L100.0500 ####[facility] [address] [place], [address] WBC (Bld) [#/Vol] 8.5 10*3/uL Normal 4.4-11.0 [facility] Comment on above: Performed By: #### L 500.2500, L100.0500 ####[facility] [address] [place], [address] Carbon dioxide measurementOr dered By: Saúl Flowers on 04-20-2024 CO2 [Moles/Vol] 26.0 mmol/L 21.0-32.0 [facility] Chloride measurementOrdered By: Saúl Flowers on 04-20-2024 Chloride [Moles/Vol] 103 mmol/L 98-107 [facility] Erythrocyte distribution wid th ratioOrdered By: Saúl Flowers on 04-20-2024 Erythrocyte distribution width (RBC) [Ratio] 12.9 % 11.6-14.6 [facility] Erythrocyte distribution wid th standard deviationOrdered By: Saúl Flowers on 04-20-2024 Erythrocyte distribution width (RBC) [Entitic vol] 43.8 fL 35.1-43.9 [facility] Estimated glomerular filtrat ion rate (GFR) AmericanOrdered By: Saúl Flowers on 04-20-2024 Estimated GFR (MDRD) Amer 90 mL/min >60 [facility] Comment on above: GFR Calc Estimation of creatinine john aranceOrdered By: Saúl Flowers on 04-20-2024 Estimated Creatinine Clearance Calc 78.67 ml/min [facility] Glomerular filtration rate ( GFR) estimationOrdered By: Saúl Flowers on 04-20-2024 Estimated GFR (MDRD) Non-Af Amer 75 mL/min >60 [facility] Comment on above: Non- GFR Calc Glucose measurementOrdered B y: Saúl Flowers on 04-20-2024 Glucose [Mass/Vol] 228 mg/dL High 74-106 [facility] Comment on above: Glucose result great er than or equal to 200 mg/dLsuggests DIABETES MELLITUS per A.D.A. criteria. Hematocrit Auto (Bld) [Volum e fraction]Ordered By: Saúl Flowers on 04-20-2024 Hematocrit (Bld) [Volume fraction] 52.2 % 40-54 [facility] Hemoglobin measurementOrdere d By: Saúl Flowers on 04-20-2024 Hemoglobin (Bld) [Mass/Vol] 17.8 g/dL High 13.0-16.5 [facility] MCV (mean corpuscular volume ) determinationOrdered By: Saúl Flowers on 04-20-2024 MCV (RBC) [Entitic vol] 92.9 fL 80-94 [facility] Mean corpuscular hemoglobin (MCH) determinationOrdered By: Saúl Flowers on 04-20-2024 MCH (RBC) [Entitic mass] 31.7 pg 27.0-32.0 [facility] Mean corpuscular hemoglobin concentration (MCHC) determinationOrdered By: Saúl Flowers on 04-20-2024 MCHC (RBC) [Mass/Vol] 34.1 g/dL 32-36 [facility] Mean platelet volume determi nationOrdered By: Saúl Flowers on 04-20-2024 Platelet mean volume (Bld) [Entitic vol] 9.5 fL 6.2-12.0 [facility] Operative Reporton Operative Report Normal [facility] Platelet countOrdered By: Chacho Flowers on 04-20-2024 Platelets (Bld) [#/Vol] 271 10*3/uL 150-450 [facility] Potassium measurementOrdered By: Saúl Flowers on 04-20-2024 Potassium [Moles/Vol] 4.3 mmol/L 3.5-5.1 [facility] RBC Auto (Bld) [#/Vol]Ordere d By: Saúl Flowers on 04-20-2024 RBC (Bld) [#/Vol] 5.62 10*6/uL 4.6-6.2 [facility] Serum anion gap measurementO rdered By: Saúl Flowers on 04-20-2024 Anion gap [Moles/Vol] 6 mmol/L -15 [facility] Serum or plasma calcium brenda urement (mass/volume)Ordered By: Saúl Flowers on 04-20-2024 Calcium [Mass/Vol] 9.3 mg/dL 8.5-10.1 [facility] Serum or plasma creatinine m easurement (mass/volume)Ordered By: Saúl Flowers on 04-20-2024 Creatinine [Mass/Vol] 1.06 mg/dL 0.70-1.30 [facility] Comment on above: The validity of the calculated GFR & GFRAA in patients over 70 years has not been determined. Clinical correlation is essential. Serum or plasma urea nitroge n measurement (mass/volume)Ordered By: Saúl Flowers on 04-20-2024 Urea nitrogen [Mass/Vol] 16 mg/dL 7-18 [facility] Sodium levelOrdered By: Saúl Flowers on 04-20-2024 Sodium [Moles/Vol] 135 mmol/L Low 136-145 [facility] White blood cell (WBC) count Ordered By: Saúl Flowers on 04-20-2024 WBC (Bld) [#/Vol] 8.5 10*3/uL 4.4-11.0 [facility] MR/BMS.BVSon 04-08-2024 MR/BMS.BVS Normal [facility] Cardiology Visit Reporton Cardiology Visit Report Normal [facility] CREATININE FINGERSTICKon CREATININE WB < 1.0 Normal 0.70-1.30 [facility] Comment on above: Performed By: #### L 9100.0200 ####[facility] [address] [place], [place], [address] EGFR WB > 60.0000 Normal >60 [facility] Comment on above: Performed By: #### L 9100.0200 ####[facility] [address] [place], [place], [address] CTA Abd w/Runoff W/WO Contra ston 03-29-2024 CTA Abd w/Runoff W/WO Contrast Normal [facility] Creatinine measurement at dsideOrdered By: Lubna Manley on 03-29-2024 Bedside Creatinine < 1.0 mg/dL 0.70-1.30 [facility] EGFROrdered By: Lubna Manley on 03-29-2024 Bedside Estimated GFR (eGFR) > 60.0000 mL/min >60 [facility] MR/BMS.BVSon 03-22-2024 MR/BMS.BVS Normal [facility] Lower Ext Art Exam w/o Exerc zachary 03-09-2024 Lower Ext Art Exam w/o Exercis Normal [facility] Internal Medicine Office Vis iton 02-24-2024 Internal Medicine Office Visit Normal [facility] Laboratory - Hematology and Cell countson 02-24-2024 HbA1c (Bld) [Mass fraction] 11.3 % High 4.2-6.3 [facility] MR/BMS.BVSon 02-24-2024 MR/BMS.BVS Normal [facility] Lipid Profileon 02-23-2024 Cholesterol [Mass/Vol] 238 mg/dL High 200 [facility] Comment on above: Result Comment: <200 mg/dL Desirable 200-240 mg/dL Borderline >240 mg/dL High Risk Performed By: #### L 500.3400, L500.4100 ####[facility] [address] [place], [address] Cholesterol in HDL [Mass/Vol] 38 mg/dL Low [facility] Comment on above: Result Comment: The drugs N-Acetylcysteine and Metamizole may falselydepress this assay. Reference Range HDL <40 mg/dL Low HDL Cholesterol HDL >or= 60 mg/dL High HDL Cholesterol Performed By: #### L 500.3400, L500.4100 ####[facility] [address] [place], [address] LDL TNP Normal 0-130 [facility] Comment on above: Performed By: #### L 500.3400, L500.4100 ####[facility] [address] [place], [address] Triglyceride [Mass/Vol] 607 mg/dL High [facility] Comment on above: Result Comment: The drugs N-Acetylcysteine and Metamizole may falselydepress this assay.TRIGLYCERIDE IS GREATER THAN 400 mg/dL.LDL RESULT IS INVALID AND WILL NOT BE REPORTED.Serum Triglycerides Reference Interval Normal <150 mg/dL Borderline high 150 - 199 mg/dL High 200 - 499 mg/dL Very High > or = 500 mg/dL Performed By: #### L 500.3400, L500.4100 ####[facility] [address] [place], [address] VLDL TNP Normal 5-40 [facility] Comment on above: Performed By: #### L 500.3400, L500.4100 ####[facility] [address] [place], [address] Liver Profileon 02-23-2024 Albumin [Mass/Vol] 3.8 g/dL Normal 3.2-5.0 [facility] Comment on above: Performed By: #### L 500.3400, L500.4100 ####[facility] [address] [place], [address] ALK P 69 U/L Normal 45-117 [facility] Comment on above: Performed By: #### L 500.3400, L500.4100 ####[facility] [address] [place], [address] ALT [Catalytic activity/Vol] 37 U/L Normal 16-61 [facility] Comment on above: Performed By: #### L 500.3400, L500.4100 ####[facility] [address] [place], [address] AST [Catalytic activity/Vol] 27 U/L Normal 15-37 [facility] Comment on above: Performed By: #### L 500.3400, L500.4100 ####[facility] [address] [place], [address] Bilirubin [Mass/Vol] 0.70 mg/dL Normal 0.20-1.00 [facility] Comment on above: Result Comment: For patients on eltrombopag therapy, use of Dimension [place] TBIL is not recommended. Performed By: #### L 500.3400, L500.4100 ####[facility] [address] [place], [address] Bilirubin.direct [Mass/Vol] 0.16 mg/dL Normal 0.00-0.30 [facility] Comment on above: Performed By: #### L 500.3400, L500.4100 ####[facility] [address] [place], [address] Globulin (S) [Mass/Vol] 4.0 g/dL Normal 2.2-4.2 [facility] Comment on above: Performed By: #### L 500.3400, L500.4100 ####[facility] [address] [place], [address] T PROT 7.8 g/dL Normal 6.4-8.2 [facility] Comment on above: Performed By: #### L 500.3400, L500.4100 ####[facility] [address] [place], [address] Basophil percentageOrdered B y: Xiang Brown on 04-15-2023 Bilirubin [Mass/Vol] 0.60 mg/dL 0.20-1.00 [facility] Comment on above: For patients on eltr ombopag therapy, use of Dimension [place] TBIL is not recommended. Chloride [Moles/Vol] 100 mmol/L 98-107 [facility] Cholesterol [Mass/Vol] 255 mg/dL <200 [facility] Comment on above: <200 mg/dL Desirable 200-240 mg/dL Borderline >240 mg/dL High Risk Glucose [Mass/Vol] 255 mg/dL 74-106 [facility] Comment on above: Glucose result great er than or equal to 200 mg/dLsuggests DIABETES MELLITUS per A.D.A. criteria. Potassium [Moles/Vol] 4.7 mmol/L 3.5-5.1 [facility] Comment on above: Slight Hemolysis, Re sult may be falsely increased. Protein [Mass/Vol] 7.7 g/dL 6.4-8.2 [facility] Sodium [Moles/Vol] 133 mmol/L 136-145 [facility] Triglyceride [Mass/Vol] 411 mg/dL <199 [facility] Comment on above: The drugs N-Acetylcy [...] ALP [Catalytic activity/Vol] 81 U/L 45-117 [facility] ALT [Catalytic activity/Vol] 40 U/L 16-61 [facility] CO2 [Moles/Vol] 28.0 mmol/L 21.0-32.0 [facility] Globulin (S) [Mass/Vol] 4.1 g/dL 2.2-4.2 [facility] Urea nitrogen/Creatinine [Mass ratio] 11.9 mg/mg 10-20 [facility] Laboratory - Hematology and Cell countson 04-15-2023 HbA1c (Bld) [Mass fraction] 10.6 % 4.2-6.3 [facility] No Panel InformationOrdered By: Xiang Rogers on 04-15-2023 Estimated GFR (MDRD) Amer 96 mL/min >60 [facility] Comment on above: GFR Calc Estimated GFR (MDRD) Non-Af Amer 79 mL/min >60 [facility] Comment on above: Non- GFR Calc Serum or plasma albumin brenda urement (mass/volume)Ordered By: Xiang Rogers on 04-15-2023 Albumin [Mass/Vol] 3.6 g/dL 3.2-5.0 [facility] Serum or plasma albumin/glob ulin mass ratioOrdered By: Xiang Rogers on 04-15-2023 Albumin/Globulin [Mass ratio] 0.9 {ratio} 0.9-2.4 [facility] Serum or plasma calcium brenda urement (mass/volume)Ordered By: Xiang Rogers on 04-15-2023 Calcium [Mass/Vol] 8.9 mg/dL 8.5-10.1 [facility] Serum or plasma cholesterol in HDL measurement (mass/volume)Ordered By: Xiang Rogers on 04-15-2023 Cholesterol in HDL [Mass/Vol] 37 mg/dL >40 [facility] Comment on above: The drugs N-Acetylcy steine and Metamizole may falsely depress this assay. Reference Range HDL <40 mg/dL Low HDL Cholesterol HDL >or= 60 mg/dL High HDL Cholesterol Serum or plasma cholesterol in VLDL measurement (mass/volume)Ordered By: Xiang Rogers on 04-15-2023 Cholesterol in VLDL [Mass/Vol] TNP [facility] Comment on above: Test not performed Serum or plasma creatinine m easurement (mass/volume)Ordered By: Xiang Rogers on 04-15-2023 Creatinine [Mass/Vol] 1.01 mg/dL 0.70-1.30 [facility] Comment on above: The validity of the calculated GFR & GFRAA in patients over 70 years has not been determined. Clinical correlation is essential. Serum or plasma low density lipoprotein (LDL) cholesterol measurement (mass/volume)Ordered By: Xiang Rogers on 04-15-2023 Cholesterol in LDL [Mass/Vol] TNP [facility] Comment on above: Test not performed Serum or plasma urea nitroge n measurement (mass/volume)Ordered By: Xiang Rogers on 04-15-2023 Urea nitrogen [Mass/Vol] 12 mg/dL 7-18 [facility] Thin prep Papanicolaou smear with manual screeningOrdered By: Xiang Rogers 04-15-2023 Thin prep Papanicolaou smear with manual screening 29 U/L 15-37 [facility] Comment on above: Slight Hemolysis, Re sult may be falsely increased. Thin prep Papanicolaou smear with manual screening 5 5-15 [facility] Laboratory - Hematology and Cell countson 01-13-2023 HbA1c (Bld) [Mass fraction] 9.0 % 4.2-6.3 [facility] Basophil percentageOrdered B y: Dean Pena on 06-02-2022 Bilirubin [Mass/Vol] 0.50 mg/dL 0.20-1.00 [facility] Comment on above: For patients on eltr ombopag therapy, use of Dimension [place] TBIL is not recommended. Cholesterol [Mass/Vol] 326 mg/dL <200 [facility] Comment on above: <200 mg/dL Desirable 200-240 mg/dL Borderline >240 mg/dL High Risk Protein [Mass/Vol] 7.5 g/dL 6.4-8.2 [facility] Triglyceride [Mass/Vol] 883 mg/dL <199 [facility] Comment on above: The drugs N-Acetylcy [...] 06-02-2022 Bilirubin.direct [Mass/Vol] 0.07 mg/dL 0.00-0.30 [facility] Laboratory - Chemistry and C hemistry - challengeOrdered By: Dean Pena on 06-02-2022 ALP [Catalytic activity/Vol] 68 U/L 45-117 [facility] ALT [Catalytic activity/Vol] 35 U/L 16-61 [facility] Globulin (S) [Mass/Vol] 3.9 g/dL 2.2-4.2 [facility] Serum or plasma albumin brenda urement (mass/volume)Ordered By: Dean Pena on 06-02-2022 Albumin [Mass/Vol] 3.6 g/dL 3.2-5.0 [facility] Serum or plasma cholesterol in HDL measurement (mass/volume)Ordered By: Dean Pena on 06-02-2022 Cholesterol in HDL [Mass/Vol] 36 mg/dL >40 [facility] Comment on above: The drugs N-Acetylcy steine and Metamizole may falsely depress this assay. Reference Range HDL <40 mg/dL Low HDL Cholesterol HDL >or= 60 mg/dL High HDL Cholesterol Serum or plasma cholesterol in VLDL measurement (mass/volume)Ordered By: Dean Pena on 06-02-2022 Cholesterol in VLDL [Mass/Vol] [facility] Comment on above: Test not performed Serum or plasma low density lipoprotein (LDL) cholesterol measurement (mass/volume)Ordered By: Dean Pena on 06-02-2022 Cholesterol in LDL [Mass/Vol] [facility] Comment on above: Test not performed Thin prep Papanicolaou smear with manual screeningOrdered By: Dean Pena on 06-02-2022 Thin prep Papanicolaou smear with manual screening 26 U/L 15-37 [facility] Comment on above: Moderate Hemolysis, Result may be falsely increased. Absolute lymphocyte countOrd ered By: Dr. Johnson on 04-19-2022 Lymphocytes Auto (Unsp spec) [#/Vol] 1.77 10*3/uL 0.83-4.51 [facility] Basophil percentageOrdered B y: Dr. Fields on 04-19-2022 Chloride [Moles/Vol] 104 mmol/L 98-107 [facility] Glucose [Mass/Vol] 235 mg/dL 74-106 [facility] Comment on above: Glucose result great er than or equal to 200 mg/dLsuggests DIABETES MELLITUS per A.D.A. criteria. Potassium [Moles/Vol] 4.1 mmol/L 3.5-5.1 [facility] Sodium [Moles/Vol] 137 mmol/L 136-145 [facility] Basophil percentageOrdered B y: Dr. Johnson on 04-19-2022 Basophils/100 WBC (Bld) 0.5 % 0-1 [facility] Eosinophils/100 WBC (Bld) 4.3 % 0-5 [facility] Neutrophils (Bld) [#/Vol] 3.9 10*3/uL 2.0-7.7 [facility] Neutrophils/100 WBC (Bld) 59.9 % 47-70 [facility] WBC (Bld) [#/Vol] 6.6 10*3/uL 4.4-11.0 [facility] Blood erythrocytes count (nu mber/volume)Ordered By: Dr. Johnson on 04-19-2022 RBC (Bld) [#/Vol] 4.82 10*6/uL 4.6-6.2 [facility] Blood hemoglobin measurement (mass/volume)Ordered By: Dr. Johnson on 04-19-2022 Hemoglobin (Bld) [Mass/Vol] 15.4 g/dL 13.0-16.5 [facility] Blood lymphocytes/100 leukoc ytesOrdered By: Dr. Johnson on 04-19-2022 Lymphocytes/100 WBC (Bld) 27.0 % 19-41 [facility] Blood monocytes/100 leukocyt esOrdered By: Dr. Johnson on 04-19-2022 Monocytes/100 WBC (Bld) 7.8 % 0-10 [facility] Blood platelet mean volumeOr dered By: Dr. Johnson on 04-19-2022 Platelet mean volume (Bld) [Entitic vol] 10.2 fL 6.2-12.0 [facility] Determination of erythrocyte mean corpuscular volume (MCV)Ordered By: Dr. Johnson on 04-19-2022 MCV (RBC) [Entitic vol] 95.4 fL 80-94 [facility] Glucose Glucometer (dC) [M ass/Vol]Ordered By: Dr. Fields on 04-19-2022 Glucose [Mass/Vol] 290 mg/dL 74-106 [facility] Comment on above: MANAGEMENT OF PATIEN T CARE PER NURSING PROTOCOL Hematocrit Auto (Bld) [Volum e fraction]Ordered By: Dr. Johnson on 04-19-2022 Hematocrit (Bld) [Volume fraction] 46.0 % 40-54 [facility] INR in Blood by Coagulation assayOrdered By: Dr. Fields on 04-19-2022 INR Coag (Bld) [Relative time] 1.0 {INR} [facility] Laboratory - Chemistry and C hemistry - challengeOrdered By: Dr. Fields on 04-19-2022 CO2 [Moles/Vol] 26.0 mmol/L 21.0-32.0 [facility] Urea nitrogen/Creatinine [Mass ratio] 15.7 mg/mg 10-20 [facility] Laboratory - CoagulationOrde red By: Dr. Fields on 04-19-2022 aPTT Coag (Bld) [Time] 25.0 s 24.1-36.2 [facility] PT Coag (PPP) [Time] 13.0 s 11.7-14.9 [facility] Laboratory - Hematology and Cell countsOrdered By: Dr. Johnson on 04-19-2022 Erythrocyte distribution width (RBC) [Entitic vol] 43.7 fL 35.1-43.9 [facility] Erythrocyte distribution width (RBC) [Ratio] 12.4 % 11.6-14.6 [facility] Immature granulocytes/100 WBC (Bld) 0.500 % 0.0-0.9 [facility] Comment on above: IG% - Immature Granu locytes (promyelocytes, myelocytes and metamyelocytes) > 1% indicates that a LEFT SHIFT is Present. MCH (RBC) [Entitic mass] 32.0 pg 27.0-32.0 [facility] Nucleated RBC/100 WBC (Bld) [Ratio] 0 % 0-5 [facility] MCHC Auto (RBC) [Mass/Vol]Or dered By: Dr. Johnson on 04-19-2022 MCHC (RBC) [Mass/Vol] 33.5 g/dL 32-36 [facility] No Panel InformationOrdered By: Dr. Fields on 04-19-2022 Estimated Creatinine Clearance Calc 79.98 ml/min [facility] Estimated GFR (MDRD) Amer 95 mL/min >60 [facility] Comment on above: GFR Calc Estimated GFR (MDRD) Non-Af Amer 79 mL/min >60 [facility] Comment on above: Non- GFR Calc Platelets bldOrdered By: Dr. Johnson on 04-19-2022 Platelets (Bld) [#/Vol] 254 10*3/uL 150-450 [facility] Serum or plasma calcium brenda urement (mass/volume)Ordered By: Dr. Fields on 04-19-2022 Calcium [Mass/Vol] 8.9 mg/dL 8.5-10.1 [facility] Serum or plasma creatinine m easurement (mass/volume)Ordered By: Dr. Fields on 04-19-2022 Creatinine [Mass/Vol] 1.02 mg/dL 0.70-1.30 [facility] Comment on above: The validity of the calculated GFR & GFRAA in patients over 70 years has not been determined. Clinical correlation is essential. Serum or plasma urea nitroge n measurement (mass/volume)Ordered By: Dr. Fields on 04-19-2022 Urea nitrogen [Mass/Vol] 16 mg/dL 7-18 [facility] Thin prep Papanicolaou smear with manual screeningOrdered By: Dr. Fields on 04-19-2022 Thin prep Papanicolaou smear with manual screening 7 5-15 [facility] Absolute lymphocyte counton 04-18-2022 Lymphocytes Auto (Unsp spec) [#/Vol] 2.31 10*3/uL 0.83-4.51 [facility] Work Phone: [phone] Basophil percentageon 2022 Basophils/100 WBC (Bld) 0.5 % 0-1 [facility] Work Phone: Chloride [Moles/Vol] 103 mmol/L 98-107 [facility] Work Phone: Eosinophils/100 WBC (Bld) 4.3 % 0-5 [facility] Work Phone: [phone] Glucose [Mass/Vol] 252 mg/dL 74-106 [facility] Work Phone: [phone] Comment on above: Moderate Lipemia, Re sult may be falsely increased.Glucose result greater than or equal to 200 mg/dLsuggests DIABETES MELLITUS per A.D.A. criteria. Neutrophils (Bld) [#/Vol] 4.7 10*3/uL 2.0-7.7 [facility] Work Phone: Neutrophils/100 WBC (Bld) 57.7 % 47-70 [facility] Work Phone: Potassium [Moles/Vol] 3.9 mmol/L 3.5-5.1 [facility] Work Phone: [phone] Comment on above: Moderate Hemolysis, Result may be falsely increased. Sodium [Moles/Vol] 136 mmol/L 136-145 [facility] Work Phone: WBC (Bld) [#/Vol] 8.1 10*3/uL 4.4-11.0 [facility] Work Phone: Blood erythrocytes count (nu mber/volume)on 04-18-2022 RBC (Bld) [#/Vol] 4.98 10*6/uL 4.6-6.2 [facility] Work Phone: Blood hemoglobin measurement (mass/volume)on 04-18-2022 Hemoglobin (Bld) [Mass/Vol] 16.4 g/dL 13.0-16.5 [facility] Work Phone: Blood lymphocytes/100 leukoc yteson 04-18-2022 Lymphocytes/100 WBC (Bld) 28.6 % 19-41 [facility] Work Phone: Blood monocytes/100 leukocyt eson 04-18-2022 Monocytes/100 WBC (Bld) 8.5 % 0-10 [facility] Work Phone: Blood platelet mean volumeon 04-18-2022 Platelet mean volume (Bld) [Entitic vol] 10.2 fL 6.2-12.0 [facility] Work Phone: Determination of erythrocyte mean corpuscular volume (MCV)on 04-18-2022 MCV (RBC) [Entitic vol] 97.4 fL 80-94 [facility] Work Phone: Hematocrit Auto (Bld) [Volum e fraction]on 04-18-2022 Hematocrit (Bld) [Volume fraction] 48.5 % 40-54 [facility] Work Phone: INR in Blood by Coagulation assayon 04-18-2022 INR Coag (Bld) [Relative time] 1.0 {INR} [facility] Work Phone: [phone] Laboratory - Chemistry and C hemistry - challengeon 04-18-2022 CO2 [Moles/Vol] 28.0 mmol/L 21.0-32.0 [facility] Work Phone: Urea nitrogen/Creatinine [Mass ratio] 17.1 mg/mg 10-20 [facility] Work Phone: Laboratory - Chemistry and C hemistry - challengeOrdered By: Dr. Moura on 04-18-2022 Magnesium [Mass/Vol] 1.8 mg/dL 1.6-2.6 [facility] Comment on above: Moderate Hemolysis, Result may be falsely increased. Laboratory - Coagulationon 0 04-18-2022 aPTT Coag (Bld) [Time] 25.6 s 24.1-36.2 [facility] Work Phone: PT Coag (PPP) [Time] 12.3 s 11.7-14.9 [facility] Work Phone: Laboratory - Hematology and Cell countson 04-18-2022 Erythrocyte distribution width (RBC) [Entitic vol] 44.8 fL 35.1-43.9 [facility] Work Phone: Erythrocyte distribution width (RBC) [Ratio] 12.4 % 11.6-14.6 [facility] Work Phone: Immature granulocytes/100 WBC (Bld) 0.400 % 0.0-0.9 [facility] Work Phone: Comment on above: IG% - Immature Granu locytes (promyelocytes, myelocytes and metamyelocytes) > 1% indicates that a LEFT SHIFT is Present. MCH (RBC) [Entitic mass] 32.9 pg 27.0-32.0 [facility] Work Phone: Nucleated RBC/100 WBC (Bld) [Ratio] 0 % 0-5 [facility] Work Phone: MCHC Auto (RBC) [Mass/Vol]on 04-18-2022 MCHC (RBC) [Mass/Vol] 33.8 g/dL 32-36 [facility] Work Phone: No Panel InformationOrdered By: Dr. Fields on 04-18-2022 Troponin I High Sensitivity 1889 pg/mL 3.0-78.0 [facility] Comment on above: Critical Result(s) C alled at: 09:16:37 04/18/2022 by: Rula Gutierrez. Results read back by same. Please Note: New Test Units and Gender Specific Reference Ranges. For more information see Policy Stat Procedure [place] High Sensitivity Troponin (TNIH) and attachments. No Panel Informationon 04-18 Troponin I High Sensitivity 241 pg/mL 3.0-78.0 [facility] Work Phone: Comment on above: Critical Result(s) C alled at: 04:49:49 04/18/2022 by: NICOLE Matthews [employer]. Results read back by same. Please Note: New Test Units and Gender Specific Reference Ranges. For more information see Policy Stat Procedure [place] High Sensitivity Troponin (TNIH) and attachments. Estimated Creatinine Clearance Calc 77.69 ml/min [facility] Work Phone: Estimated GFR (MDRD) Amer 92 mL/min >60 [facility] Work Phone: Comment on above: GFR Calc Estimated GFR (MDRD) Non-Af Amer 76 mL/min >60 [facility] Work Phone: Comment on above: Non- GFR Calc Platelets bldon 04-18-2022 Platelets (Bld) [#/Vol] 254 10*3/uL 150-450 [facility] Work Phone: Serum or plasma calcium brenda urement (mass/volume)on 04-18-2022 Calcium [Mass/Vol] 8.5 mg/dL 8.5-10.1 [facility] Work Phone: Comment on above: Moderate Lipemia, Re sult may be falsely decreased. Serum or plasma creatinine m easurement (mass/volume)on 04-18-2022 Creatinine [Mass/Vol] 1.05 mg/dL 0.70-1.30 [facility] Work Phone: Comment on above: The validity of the calculated GFR & GFRAA in patients over 70 years has not been determined. Clinical correlation is essential. Serum or plasma urea nitroge n measurement (mass/volume)on 04-18-2022 Urea nitrogen [Mass/Vol] 18 mg/dL 7-18 [facility] Work Phone: [phone] Thin prep Papanicolaou smear with manual screeningon 04-18-2022 Thin prep Papanicolaou smear with manual screening 5 5-15 [facility] Work Phone: [phone] Laboratory - Hematology and Cell countson 04-09-2022 HbA1c (Bld) [Mass fraction] 12.5 % 4.2-6.[address] [facility] [address] PELVIS WO IVCONon 022 [facility] Absolute lymphocyte counton 01-01-2022 Lymphocytes Auto (Unsp spec) [#/Vol] 2.63 10*3/uL 0.83-4.51 [facility] Work Phone: Basophil percentageon 2021 Basophils/100 WBC (Bld) 0.3 % 0-1 [facility] Work Phone: Chloride [Moles/Vol] 98 mmol/L 98-107 [facility] Work Phone: Eosinophils/100 WBC (Bld) 3.4 % 0-5 [facility] Work Phone: [phone] Glucose [Mass/Vol] 283 mg/dL 74-106 [facility] Work Phone: [phone] Comment on above: Moderate Lipemia, Re sult may be falsely increased.Glucose result greater than or equal to 200 mg/dLsuggests DIABETES MELLITUS per A.D.A. criteria. Neutrophils (Bld) [#/Vol] 3.5 10*3/uL 2.0-7.7 [facility] Work Phone: Neutrophils/100 WBC (Bld) 51.0 % 47-70 [facility] Work Phone: Potassium [Moles/Vol] 4.2 mmol/L 3.5-5.1 [facility] Work Phone: [phone] Comment on above: Moderate Hemolysis, Result may be falsely increased. Sodium [Moles/Vol] 133 mmol/L 136-145 [facility] Work Phone: WBC (Bld) [#/Vol] 6.8 10*3/uL 4.4-11.0 [facility] Work Phone: Blood erythrocytes count (nu mber/volume)on 01-01-2022 RBC (Bld) [#/Vol] 4.96 10*6/uL 4.6-6.2 [facility] Work Phone: [phone] Blood hemoglobin measurement (mass/volume)on 01-01-2022 Hemoglobin (Bld) [Mass/Vol] 16.4 g/dL 13.0-16.5 [facility] Work Phone: Blood lymphocytes/100 leukoc yteson 01-01-2022 Lymphocytes/100 WBC (Bld) 38.7 % 19-41 [facility] Work Phone: Blood monocytes/100 leukocyt eson 01-01-2022 Monocytes/100 WBC (Bld) 6.3 % 0-10 [facility] Work Phone: Blood platelet mean volumeon 01-01-2022 Platelet mean volume (Bld) [Entitic vol] 10.3 fL 6.2-12.0 [facility] Work Phone: [phone] Determination of erythrocyte mean corpuscular volume (MCV)on 01-01-2022 MCV (RBC) [Entitic vol] 93.5 fL 80-94 [facility] Work Phone: Hematocrit Auto (Bld) [Volum e fraction]on 01-01-2022 Hematocrit (Bld) [Volume fraction] 46.4 % 40-54 [facility] Work Phone: [phone] Laboratory - Chemistry and C hemistry - challengeon 01-01-2022 CO2 [Moles/Vol] 30.0 mmol/L 21.0-32.0 [facility] Work Phone: [phone] Urea nitrogen/Creatinine [Mass ratio] 15.3 mg/mg 10-20 [facility] Work Phone: [phone] Laboratory - Hematology and Cell countson 01-01-2022 Erythrocyte distribution width (RBC) [Entitic vol] 41.0 fL 35.1-43.9 [facility] Work Phone: Erythrocyte distribution width (RBC) [Ratio] 11.9 % 11.6-14.6 [facility] Work Phone: Immature granulocytes/100 WBC (Bld) 0.300 % 0.0-0.9 [facility] Work Phone: Comment on above: IG% - Immature Granu locytes (promyelocytes, myelocytes and metamyelocytes) > 1% indicates that a LEFT SHIFT is Present. MCH (RBC) [Entitic mass] 33.1 pg 27.0-32.0 [facility] Work Phone: Nucleated RBC/100 WBC (Bld) [Ratio] 0 % 0-5 [facility] Work Phone: MCHC Auto (RBC) [Mass/Vol]on 01-01-2022 MCHC (RBC) [Mass/Vol] 35.3 g/dL 32-36 [facility] Work Phone: No Panel Informationon 01-01 Estimated GFR (MDRD) Amer 100 mL/min >60 [facility] Work Phone: Comment on above: GFR Calc Estimated GFR (MDRD) Non-Af Amer 82 mL/min >60 [facility] Work Phone: Comment on above: Non- GFR Calc Vitamin D 25-Hydroxy 13.3 ng/mL [facility] Work Phone: Comment on above: Vitamin D 25(OH) Sta tus Range Deficiency <20 ng/mL (50nmol/L) Insufficiency 20 - 30 ng/mL (50 - 75 nmol/L) Sufficiency 30 - 100 ng/mL (75 - 250 nmol/L) Toxicity >100 ng/mL (>250 nmol/L) Platelets bldon 01-01-2022 Platelets (Bld) [#/Vol] 258 10*3/uL 150-450 [facility] Work Phone: Serum or plasma calcium brenda urement (mass/volume)on 01-01-2022 Calcium [Mass/Vol] 8.2 mg/dL 8.5-10.1 [facility] Work Phone: Comment on above: Moderate Lipemia, Re sult may be falsely decreased. Serum or plasma creatinine m easurement (mass/volume)on 01-01-2022 Creatinine [Mass/Vol] 0.98 mg/dL 0.70-1.30 [facility] Work Phone: Comment on above: The validity of the calculated GFR & GFRAA in patients over 70 years has not been determined. Clinical correlation is essential. Serum or plasma urea nitroge n measurement (mass/volume)on 01-01-2022 Urea nitrogen [Mass/Vol] 15 mg/dL 7-18 [facility] Work Phone: Thin prep Papanicolaou smear with manual screeningon 01-01-2022 Thin prep Papanicolaou smear with manual screening 5 5-15 [facility] Work Phone: Whole blood hemoglobin A1c/t otal hemoglobin ratio (mass fraction)on 01-01-2022 HbA1c (Bld) [Mass fraction] 11.6 % 3.8-5.6 [facility] Work Phone: Comment on above: Normal < 5.7 % Predi abetic 5.7 - 6.4 % Diabetic >or= 6.5 % Please note range changes. No Panel Informationon 07-18 Influenza Types A,B Direct FA ([facility]) [facility] Work Phone: Basophil percentageon 2021 Chloride [Moles/Vol] 92 mmol/L 98-107 [facility] Work Phone: Cholesterol [Mass/Vol] 384 mg/dL <200 [facility] Work Phone: Comment on above: Moderate Icterus, Re sult may be falsely decreased. <200 mg/dL Desirable 200-240 mg/dL Borderline >240 mg/dL High Risk Glucose [Mass/Vol] 351 mg/dL 74-106 [facility] Work Phone: Comment on above: Moderate Lipemia, Re sult may be falsely increased.Glucose result greater than or equal to 200 mg/dLsuggests DIABETES MELLITUS per A.D.A. criteria. Potassium [Moles/Vol] 4.3 mmol/L 3.5-5.1 [facility] Work Phone: Comment on above: Moderate Hemolysis, Result may be falsely increased. Sodium [Moles/Vol] 127 mmol/L 136-145 [facility] Work Phone: Triglyceride [Mass/Vol] mg/dL [facility] Work Phone: Comment on above: The drugs N-Acetylcy steine and Metamizole may falsely depress this assay. Laboratory - Chemistry and C hemistry - challengeon 06-13-2021 CO2 [Moles/Vol] 29.0 mmol/L 21.0-32.0 [facility] Work Phone: Urea nitrogen/Creatinine [Mass ratio] 18.6 mg/mg 10- [facility] Work Phone: No Panel Informationon 06-13 Estimated GFR (MDRD) Amer 101 mL/min >60 [facility] Work Phone: Comment on above: GFR Calc Estimated GFR (MDRD) Non-Af Amer 84 mL/min >60 [facility] Work Phone: Comment on above: Non- GFR Calc Serum or plasma calcium brenda urement (mass/volume)on 06-13-2021 Calcium [Mass/Vol] 7.1 mg/dL 8.5-10.1 [facility] Work Phone: Comment on above: Moderate Lipemia, Re sult may be falsely decreased. Serum or plasma cholesterol in HDL measurement (mass/volume)on 06-13-2021 Cholesterol in HDL [Mass/Vol] 32 mg/dL [facility] [facility] Work Phone: Comment on above: The drugs N-Acetylcy steine and Metamizole may falsely depress this assay. Reference Range HDL <40 mg/dL Low HDL Cholesterol HDL >or= 60 mg/dL High HDL Cholesterol Serum or plasma cholesterol in VLDL measurement (mass/volume)on 06-13-2021 Cholesterol in VLDL [Mass/Vol] 200 mg/dL 5-40 [facility] Work Phone: Comment on above: Previous reported re sult: TNP mg/dLEdited by: JOHN on 06/13/21:1716 Serum or plasma creatinine m easurement (mass/volume)on 06-13-2021 Creatinine [Mass/Vol] 0.97 mg/dL 0.70-1.30 [facility] Work Phone: Comment on above: Moderate Icterus, Re sult may be falsely decreased.The validity of the calculated GFR & GFRAA in patients over 70 years has not been determined. Clinical correlation is essential. Serum or plasma low density lipoprotein (LDL) cholesterol measurement (mass/volume)on 06-13-2021 Cholesterol in LDL [Mass/Vol] TNP [facility] Work Phone: Comment on above: Test not performed Serum or plasma urea nitroge n measurement (mass/volume)on 06-13-2021 Urea nitrogen [Mass/Vol] 18 mg/dL 7-18 [facility] Work Phone: Thin prep Papanicolaou smear with manual screeningon 06-13-2021 Thin prep Papanicolaou smear with manual screening 6 5-15 [facility] Work Phone: Whole blood hemoglobin A1c/t otal hemoglobin ratio (mass fraction)on 06-13-2021 HbA1c (Bld) [Mass fraction] 11.7 % 3.8-5.6 [facility] Work Phone: Comment on above: Normal < 5.7 % Predi abetic 5.7 - 6.4 % Diabetic >or= 6.5 % Please note range changes. Influenza virus A and B and SARS-CoV-2 (COVID-19) Ag panel - Upper respiratory specim SARS-CoV-2 (COVID-19) RNA HAYDER+probe Ql (Resp) [facility] Work Phone: No Panel Information SARS-CoV-2 & FLU Antigen (Rapid) [facility] Work Phone: Vital Signs Date Time Vital Sign Value Performing Clinician Facility 12-25-2024 03:50-0400 SaO2% (BldA) [Mass fraction] 99 % [facility] Comment on above: Order Comment: Specimen Type: ARTERIAL B LOOD SPECIMENOrdering Facility: [facility] Address: [address] [place] [address] Performed By: #### A LLBG ####[facility] [id number] [place] [id number] [facility] 12-24-2024 21:35-0400 SaO2% (BldA) [Mass fraction] 99 % [facility] Comment on above: Order Comment: Specimen Type: ARTERIAL B LOOD SPECIMENOrdering Facility: [facility] Address: [address] [place] [address] Performed By: #### A LLBG ####[facility] [id number] [place] [id number] [facility] 11-22-2024 13:18-0400 Body temperature 97.8 [degF] Dr. Xiang Rogers DO Work Phone: [facility] 11-22-2024 13:18-0400 Diastolic blood pressure 62 mm[Hg] Dr. Xiang ham DO Work Phone: [facility] 11-22-2024 13:18-0400 Heart rate 109 /min Dr. iXang Rogers DO Work Phone: [facility] 11-22-2024 13:18-0400 Respiratory rate 22 /min Dr. Xiang Rogers DO Work Phone: [facility] 11-22-2024 13:18-0400 SaO2% (BldA) [Mass fraction] 97 % Dr. Xiang Rogers DO Work Phone: [facility] 11-22-2024 13:18-0400 Systolic blood pressure 98 mm[Hg] Dr. Xiang canales DO Work Phone: [facility] 11-22-2024 09:52-0400 Body height 180.[address] Xiang Rogers DO Work Phone: [facility] 11-22-2024 09:52-0400 Body mass index (BMI) [Ratio] 29.8 kg/m2 Dr. Xiang Rogers DO Work Phone: [facility] 11-22-2024 09:52-0400 Body weight [address] Xiang Rogers DO Work Phone: [facility] 11-16-2024 10:05-0400 Body temperature 98.2 [degF] Dr. Xiang Rogers DO Work Phone: [facility] 11-16-2024 10:05-0400 Body weight 94.[address] Xiang Rogers DO Work Phone: [facility] 11-16-2024 10:05-0400 Diastolic blood pressure 62 mm[Hg] Dr. Xiang ham DO Work Phone: [facility] 11-16-2024 10:05-0400 Heart rate 100 /min Dr. Xiang Rogers DO Work Phone: [facility] 11-16-2024 10:05-0400 Respiratory rate 16 /min Dr. Xiang Rogers DO Work Phone: [facility] 11-16-2024 10:05-0400 SaO2% (BldA) [Mass fraction] 96 % Dr. Xiang Rogers DO Work Phone: [facility] 11-16-2024 10:05-0400 Systolic blood pressure 99 mm[Hg] Dr. Xiang canales DO Work Phone: [facility] 11-13-2024 14:16-0400 Body temperature 98.2 [degF] Dr. Xiang Rogers DO Work Phone: [facility] 11-13-2024 14:16-0400 Diastolic blood pressure 59 mm[Hg] Dr. Xiang ham DO Work Phone: [facility] 11-13-2024 14:16-0400 Heart rate 92 /min Dr. Xiang Rogers DO Work Phone: [facility] 11-13-2024 14:16-0400 Respiratory rate 16 /min Dr. Xiang Rogers DO Work Phone: [facility] 11-13-2024 14:16-0400 SaO2% (BldA) [Mass fraction] 99 % Dr. Xiang Rogers DO Work Phone: [facility] 11-13-2024 14:16-0400 Systolic blood pressure 97 mm[Hg] Dr. Xiang canales DO Work Phone: [facility] 11-13-2024 08:49-0400 Inhaled oxygen flow rate 2 L/min Dr. Xiang ham DO Work Phone: [facility] 11-13-2024 06:00-0400 Body mass index (BMI) [Ratio] 27.6 kg/m2 Dr. Xiang Rogers DO Work Phone: [facility] 11-13-2024 06:00-0400 Body weight 89.[address] Xiang Rogers DO Work Phone: [facility] 11-11-2024 10:47-0400 Body height 180.[address] Xiang Rogers DO Work Phone: [facility] 11-10-2024 20:27-0400 Body temperature 98.9 [degF] Dr. Xiang Rogers DO Work Phone: [facility] 11-10-2024 20:27-0400 Diastolic blood pressure 77 mm[Hg] Dr. Xiang ham DO Work Phone: [facility] 11-10-2024 20:27-0400 Heart rate 95 /min Dr. Xiang Rogers DO Work Phone: [facility] 11-10-2024 20:27-0400 Respiratory rate 17 /min Dr. Xiang Rogers DO Work Phone: [facility] 11-10-2024 20:27-0400 SaO2% (BldA) [Mass fraction] 98 % Dr. Xiang Rogers DO Work Phone: [facility] 11-10-2024 20:27-0400 Systolic blood pressure 127 mm[Hg] Dr. Xiang canales DO Work Phone: [facility] 11-10-2024 20:00-0400 Inhaled oxygen flow rate 2 L/min Dr. Xiang ham DO Work Phone: [facility] 11-10-2024 14:47-0400 Body height 180.[address] Xiang Rogers DO Work Phone: [facility] 11-10-2024 10:14-0400 Body height 180.[address] Xiang Rogers DO Work Phone: [facility] 11-10-2024 10:14-0400 Body mass index (BMI) [Ratio] 30.1 kg/m2 Dr. Xiang Rogers DO Work Phone: [facility] 11-10-2024 10:14-0400 Body temperature 97 [degF] Dr. Xiang Rogers DO Work Phone: [facility] 11-10-2024 10:14-0400 Body weight 97.[address] Xiang Rogers DO Work Phone: [facility] 11-10-2024 10:14-0400 Diastolic blood pressure 64 mm[Hg] Dr. Xiang ham DO Work Phone: [facility] 11-10-2024 10:14-0400 Heart rate 96 /min Dr. Xiang Rogers DO Work Phone: [facility] 11-10-2024 10:14-0400 Respiratory rate 16 /min Dr. Xiang Rogers DO Work Phone: [facility] 11-10-2024 10:14-0400 SaO2% (BldA) [Mass fraction] 98 % Dr. Xiang Rogers DO Work Phone: [facility] 11-10-2024 10:14-0400 Systolic blood pressure 100 mm[Hg] Dr. Xiang canales DO Work Phone: [facility] 11-04-2024 13:57-0400 Body height 180.[address] Xiang Rogers DO Work Phone: [facility] 11-04-2024 13:57-0400 Body mass index (BMI) [Ratio] 28.8 kg/m2 Dr. Xiang Rogers DO Work Phone: [facility] 11-04-2024 13:57-0400 Body temperature 98.4 [degF] Dr. Xiang Rogers DO Work Phone: [facility] 11-04-2024 13:57-0400 Body weight 93.[address] Xiang Rogers DO Work Phone: [facility] 11-04-2024 13:57-0400 Diastolic blood pressure 60 mm[Hg] Dr. Xiang ham DO Work Phone: [facility] 11-04-2024 13:57-0400 Heart rate 92 /min Dr. Xiang Rogers DO Work Phone: [facility] 11-04-2024 13:57-0400 Respiratory rate 19 /min Dr. Xiang Rogers DO Work Phone: [facility] 11-04-2024 13:57-0400 SaO2% (BldA) [Mass fraction] 98 % Dr. Xiang Rogers DO Work Phone: [facility] 11-04-2024 13:57-0400 Systolic blood pressure 100 mm[Hg] Dr. Xiang canales DO Work Phone: [facility] 11-03-2024 10:29-0400 Body height 180.[address] Xiang Rogers DO Work Phone: [facility] 11-03-2024 10:29-0400 Body mass index (BMI) [Ratio] 28.5 kg/m2 Dr. Xiang Rogers DO Work Phone: [facility] 11-03-2024 10:29-0400 Body weight 92.[address] Xiang Rogers DO Work Phone: [facility] 11-03-2024 10:29-0400 Diastolic blood pressure 65 mm[Hg] Dr. Xiang ham DO Work Phone: [facility] 11-03-2024 10:29-0400 Heart rate 75 /min Dr. Xiang Rogers DO Work Phone: [facility] 11-03-2024 10:29-0400 Respiratory rate 18 /min Dr. Xiang Rogers DO Work Phone: [facility] 11-03-2024 10:29-0400 Systolic blood pressure 99 mm[Hg] Dr. Xiang canales DO Work Phone: [facility] 10-27-2024 01:16-0400 Body temperature 98.2 [degF] Dr. Xiang Rogers DO Work Phone: [facility] 10-27-2024 01:16-0400 Diastolic blood pressure 80 mm[Hg] Dr. Xiang ham DO Work Phone: [facility] 10-27-2024 01:16-0400 Heart rate 105 /min Dr. Xiang Rogers DO Work Phone: [facility] 10-27-2024 01:16-0400 Respiratory rate 14 /min Dr. Xiang Rogers DO Work Phone: [facility] 10-27-2024 01:16-0400 SaO2% (BldA) [Mass fraction] 99 % Dr. Xiang Rogers DO Work Phone: [facility] 10-27-2024 01:16-0400 Systolic blood pressure 119 mm[Hg] Dr. Xiang canales DO Work Phone: [facility] 10-26-2024 23:38-0400 Body mass index (BMI) [Ratio] 28.4 kg/m2 Dr. Xiang Rogers DO Work Phone: [facility] 10-26-2024 23:38-0400 Body weight 92.[address] Xiang Rogers DO Work Phone: [facility] 10-26-2024 23:29-0400 Body height 180.[address] Xiang Rogers DO Work Phone: [facility] 10-23-2024 20:45-0400 Body temperature 97.8 [degF] Dr. Xiang Rogers DO Work Phone: [facility] 10-23-2024 20:45-0400 Diastolic blood pressure 73 mm[Hg] Dr. Xiang ham DO Work Phone: [facility] 10-23-2024 20:45-0400 Heart rate 93 /min Dr. Xiang Rogers DO Work Phone: [facility] 10-23-2024 20:45-0400 Respiratory rate 18 /min Dr. Xiang Rogers DO Work Phone: [facility] 10-23-2024 20:45-0400 SaO2% (BldA) [Mass fraction] 94 % Dr. Xiang Rogers DO Work Phone: [facility] 10-23-2024 20:45-0400 Systolic blood pressure 103 mm[Hg] Dr. Xiang canales DO Work Phone: [facility] 10-23-2024 19:03-0400 Body mass index (BMI) [Ratio] 30.2 kg/m2 Dr. Xiang Rogers DO Work Phone: [facility] 10-23-2024 19:03-0400 Body weight 98.[address] Xiang Rogers DO Work Phone: [facility] 10-23-2024 17:54-0400 Body height 180.[address] Xiang Rogers DO Work Phone: [facility] 10-21-2024 16:52-0400 Body temperature 98.2 [degF] Dr. Xiang Rogers DO Work Phone: [facility] 10-21-2024 16:52-0400 Diastolic blood pressure 62 mm[Hg] Dr. Xiang ham DO Work Phone: [facility] 10-21-2024 16:52-0400 Heart rate 95 /min Dr. Xiang Rogers DO Work Phone: [facility] 10-21-2024 16:52-0400 Respiratory rate 20 /min Dr. Xiang Rogers DO Work Phone: [facility] 10-21-2024 16:52-0400 SaO2% (BldA) [Mass fraction] 99 % Dr. Xiang Rogers DO Work Phone: [facility] 10-21-2024 16:52-0400 Systolic blood pressure 108 mm[Hg] Dr. Xiang canales DO Work Phone: [facility] 10-21-2024 16:26-0400 Body height 180.[address] Xiang Rogers DO Work Phone: [facility] 10-21-2024 16:26-0400 Body mass index (BMI) [Ratio] 27 kg/m2 Dr. Xiang Rogers DO Work Phone: [facility] 10-21-2024 16:26-0400 Body weight 87.[address] Xiang Rogers DO Work Phone: [facility] 10-19-2024 23:27-0400 Body temperature 97.9 [degF] Dr. Xiang Rogers DO Work Phone: [facility] 10-19-2024 23:27-0400 Diastolic blood pressure 76 mm[Hg] Dr. Xiang ham DO Work Phone: [facility] 10-19-2024 23:27-0400 Heart rate 98 /min Dr. Xiang Rogers DO Work Phone: [facility] 10-19-2024 23:27-0400 Respiratory rate 16 /min Dr. Xiang Rogers DO Work Phone: [facility] 10-19-2024 23:27-0400 SaO2% (BldA) [Mass fraction] 96 % Dr. Xiang Rogers DO Work Phone: [facility] 10-19-2024 23:27-0400 Systolic blood pressure 114 mm[Hg] Dr. Xiang canales DO Work Phone: [facility] 10-19-2024 18:20-0400 Body height 180.[address] Xiang Rogers DO Work Phone: [facility] 10-19-2024 18:20-0400 Body mass index (BMI) [Ratio] 27 kg/m2 Dr. Xiang Rogers DO Work Phone: [facility] 10-19-2024 18:20-0400 Body weight 87.[address] Xiang Rogers DO Work Phone: [facility] 09-27-2024 09:59-0400 Body height 180.[address] Xiang Rogers DO Work Phone: [facility] 09-27-2024 09:59-0400 Body mass index (BMI) [Ratio] 26 kg/m2 Dr. Xiang Rogers DO Work Phone: [facility] 09-27-2024 09:59-0400 Body weight 84.[address] Xiang Rogesr DO Work Phone: [facility] 09-27-2024 09:59-0400 Diastolic blood pressure 64 mm[Hg] Dr. Xiang ham DO Work Phone: [facility] 09-27-2024 09:59-0400 Heart rate 83 /min Dr. Xiang Rogers DO Work Phone: [facility] 09-27-2024 09:59-0400 Respiratory rate 18 /min Dr. Xiang Rogers DO Work Phone: [facility] 09-27-2024 09:59-0400 Systolic blood pressure 103 mm[Hg] Dr. Xiang canales DO Work Phone: [facility] 09-21-2024 14:17-0400 Body temperature 97.8 [degF] Dr. Xiang Rogers DO Work Phone: [facility] 09-21-2024 14:17-0400 Diastolic blood pressure 54 mm[Hg] Dr. Xiang ham DO Work Phone: [facility] 09-21-2024 14:17-0400 Heart rate 82 /min Dr. Xiang Rogers DO Work Phone: [facility] 09-21-2024 14:17-0400 Respiratory rate 14 /min Dr. Xiang Rogers DO Work Phone: [facility] 09-21-2024 14:17-0400 SaO2% (BldA) [Mass fraction] 97 % Dr. Xiang Rogers DO Work Phone: [facility] 09-21-2024 14:17-0400 Systolic blood pressure 90 mm[Hg] Dr. Xiang canales DO Work Phone: [facility] 09-19-2024 10:52-0400 Body height 180.[address] Xiang Rogers DO Work Phone: [facility] 09-19-2024 10:52-0400 Body weight 87.[address] Xiang Rogers DO Work Phone: [facility] 09-18-2024 15:22-0400 Body mass index (BMI) [Ratio] 26.9 kg/m2 Dr. Xiang Rogers DO Work Phone: [facility] 09-18-2024 14:00-0400 Diastolic blood pressure 70 mm[Hg] Dr. Xiang ham DO Work Phone: [facility] 09-18-2024 14:00-0400 Heart rate 103 /min Dr. Xiang Rogers DO Work Phone: [facility] 09-18-2024 14:00-0400 Respiratory rate 20 /min Dr. Xiang Rogers DO Work Phone: [facility] 09-18-2024 14:00-0400 SaO2% (BldA) [Mass fraction] 97 % Dr. Xiang Rogers DO Work Phone: [facility] 09-18-2024 14:00-0400 Systolic blood pressure 120 mm[Hg] Dr. Xiang canales DO Work Phone: [facility] 09-18-2024 13:37-0400 Body temperature 98.2 [degF] Dr. Xiang Rogers DO Work Phone: [facility] 09-18-2024 09:51-0400 Body height 180.[address] Xiang Rogers DO Work Phone: [facility] 09-18-2024 09:51-0400 Body mass index (BMI) [Ratio] 26.9 kg/m2 Dr. Xiang Rogers DO Work Phone: [facility] 09-18-2024 09:51-0400 Body weight 87.[address] Xiang Rogers DO Work Phone: [facility] 08-02-2024 11:29-0400 Body mass index (BMI) [Ratio] 26.6 kg/m2 Dr. Xiang Rogers DO Work Phone: [facility] 08-02-2024 11:29-0400 Body temperature 96.4 [degF] Dr. Xiang Rogers DO Work Phone: [facility] 08-02-2024 11:29-0400 Body weight 84.[address] Xiang Rogers DO Work Phone: [facility] 08-02-2024 11:29-0400 Diastolic blood pressure 66 mm[Hg] Dr. Xiang ham DO Work Phone: [facility] 08-02-2024 11:29-0400 Heart rate 87 /min Dr. Xiang Rogers DO Work Phone: [facility] 08-02-2024 11:29-0400 Respiratory rate 16 /min Dr. Xiang Rogers DO Work Phone: [facility] 08-02-2024 11:29-0400 SaO2% (BldA) [Mass fraction] 98 % Dr. Xiang Rogers DO Work Phone: [facility] 08-02-2024 11:29-0400 Systolic blood pressure 118 mm[Hg] Dr. Xiang canales DO Work Phone: [facility] 07-29-2024 23:02-0400 Body temperature 97.2 [degF] Dr. Xiang Rogers DO Work Phone: [facility] 07-29-2024 23:02-0400 Diastolic blood pressure 69 mm[Hg] Dr. Xiang ham DO Work Phone: [facility] 07-29-2024 23:02-0400 Heart rate 82 /min Dr. Xiang Rogers DO Work Phone: [facility] 07-29-2024 23:02-0400 Respiratory rate 16 /min Dr. Xiang Rogers DO Work Phone: [facility] 07-29-2024 23:02-0400 SaO2% (BldA) [Mass fraction] 95 % Dr. Xiang Rogers DO Work Phone: [facility] 07-29-2024 23:02-0400 Systolic blood pressure 117 mm[Hg] Dr. Xiang canales DO Work Phone: [facility] 07-29-2024 20:00-0400 Body mass index (BMI) [Ratio] 26.8 kg/m2 Dr. Xiang Rogers DO Work Phone: [facility] 07-29-2024 20:00-0400 Body weight 87.[address] Xiang Rogers DO Work Phone: [facility] 07-14-2024 10:05-0400 Body temperature 98.2 [degF] Dr. Xiang Rogers DO Work Phone: [facility] 07-14-2024 10:05-0400 Body weight 85.[address] Xiang Rogers DO Work Phone: [facility] 07-14-2024 10:05-0400 Diastolic blood pressure 60 mm[Hg] Dr. Xiang ham DO Work Phone: [facility] 07-14-2024 10:05-0400 Heart rate 90 /min Dr. Xiang Rogers DO Work Phone: [facility] 07-14-2024 10:05-0400 Respiratory rate 16 /min Dr. Xiang Rogers DO Work Phone: [facility] 07-14-2024 10:05-0400 SaO2% (BldA) [Mass fraction] 96 % Dr. Xiang Rogers DO Work Phone: [facility] 07-14-2024 10:05-0400 Systolic blood pressure 113 mm[Hg] Dr. Xiang canales DO Work Phone: [facility] 07-12-2024 10:03-0400 Body mass index (BMI) [Ratio] 25.9 kg/m2 Dr. Xiang Rogers DO Work Phone: [facility] 07-12-2024 10:03-0400 Body weight 84.[address] Xiang Rogers DO Work Phone: [facility] 07-12-2024 10:03-0400 Diastolic blood pressure 72 mm[Hg] Dr. Xiang ham DO Work Phone: [facility] 07-12-2024 10:03-0400 Heart rate 84 /min Dr. Xiang Rogers DO Work Phone: [facility] 07-12-2024 10:03-0400 Respiratory rate 20 /min Dr. Xiang Rogers DO Work Phone: [facility] 07-12-2024 10:03-0400 SaO2% (BldA) [Mass fraction] 96 % Dr. Xiang Rogers DO Work Phone: [facility] 07-12-2024 10:03-0400 Systolic blood pressure 120 mm[Hg] Dr. Xiang canales DO Work Phone: [facility] 06-20-2024 10:00-0400 Body temperature 98.1 [degF] Dr. Xiang Rogers DO Work Phone: [facility] 06-20-2024 10:00-0400 Diastolic blood pressure 68 mm[Hg] Dr. Xiang ham DO Work Phone: [facility] 06-20-2024 10:00-0400 Heart rate 74 /min Dr. Xiang Rogers DO Work Phone: [facility] 06-20-2024 10:00-0400 Respiratory rate 16 /min Dr. Xiang Rogers DO Work Phone: [facility] 06-20-2024 10:00-0400 SaO2% (BldA) [Mass fraction] 99 % Dr. Xiang Rogers DO Work Phone: [facility] 06-20-2024 10:00-0400 Systolic blood pressure 112 mm[Hg] Dr. Xiang canales DO Work Phone: [facility] 06-20-2024 04:34-0400 Body mass index (BMI) [Ratio] 26.7 kg/m2 Dr. Xiang Rogers DO Work Phone: [facility] 06-20-2024 04:34-0400 Body weight [address] Xiang Rogers DO Work Phone: [facility] 06-19-2024 10:35-0400 Inhaled oxygen flow rate 1 L/min Dr. Xiang ham DO Work Phone: [facility] 06-18-2024 05:54-0400 Inhaled oxygen concentration 30 % Dr. Xiang Rogers DO Work Phone: [facility] 05-21-2024 17:26-0500 Body mass index (BMI) [Ratio] 28.1 kg/m2 Dr. Xiang Rogers DO Work Phone: [facility] 05-21-2024 17:26-0500 Body temperature 98.1 [degF] Dr. Xiang Rogers DO Work Phone: [facility] 05-21-2024 17:26-0500 Body weight 88.[address] Xiang Rogers DO Work Phone: [facility] 05-21-2024 17:26-0500 Diastolic blood pressure 83 mm[Hg] Dr. Xiang ham DO Work Phone: [facility] 05-21-2024 17:26-0500 Heart rate 102 /min Dr. Xiang Rogers DO Work Phone: [facility] 05-21-2024 17:26-0500 Respiratory rate 16 /min Dr. Xiang Rogers DO Work Phone: [facility] 05-21-2024 17:26-0500 SaO2% (BldA) [Mass fraction] 97 % Dr. Xiang Rogers DO Work Phone: [facility] 05-21-2024 17:26-0500 Systolic blood pressure 115 mm[Hg] Dr. Xiang canales DO Work Phone: [facility] 05-17-2024 12:50-0500 Body temperature 98 [degF] Dr. Xiang Rogers DO Work Phone: [facility] 05-17-2024 12:50-0500 Body weight 86.[address] Xiang Rogers DO Work Phone: [facility] 05-17-2024 12:50-0500 Diastolic blood pressure 70 mm[Hg] Dr. Xiang ham DO Work Phone: [facility] 05-17-2024 12:50-0500 Heart rate 90 /min Dr. Xiang Rogers DO Work Phone: [facility] 05-17-2024 12:50-0500 Respiratory rate 16 /min Dr. Xiang Rogers DO Work Phone: [facility] 05-17-2024 12:50-0500 SaO2% (BldA) [Mass fraction] 97 % Dr. Xiang Rogers DO Work Phone: [facility] 05-17-2024 12:50-0500 Systolic blood pressure 108 mm[Hg] Dr. Xiang canales DO Work Phone: [facility] 05-03-2024 10:53-0500 Body mass index (BMI) [Ratio] 27.6 kg/m2 Dr. Xiang Rogers DO Work Phone: [facility] 05-03-2024 10:53-0500 Body temperature 97.8 [degF] Dr. Xiang Rogers DO Work Phone: [facility] 05-03-2024 10:53-0500 Body weight 87.[address] Xiang Rogers DO Work Phone: [facility] 05-03-2024 10:53-0500 Diastolic blood pressure 62 mm[Hg] Dr. Xiang ham DO Work Phone: [facility] 05-03-2024 10:53-0500 Heart rate 93 /min Dr. Xiang Rogers DO Work Phone: [facility] 05-03-2024 10:53-0500 Respiratory rate 18 /min Dr. Xiang Rogers DO Work Phone: [facility] 05-03-2024 10:53-0500 SaO2% (BldA) [Mass fraction] 97 % Dr. Xiang Rogers DO Work Phone: [facility] 05-03-2024 10:53-0500 Systolic blood pressure 120 mm[Hg] Dr. Xiang canales DO Work Phone: [facility] 04-20-2024 07:15-0500 Body weight 87.[address] Xiang Rogers DO Work Phone: [facility] 04-19-2024 08:51-0500 Body mass index (BMI) [Ratio] 27.8 kg/m2 Dr. Xiang Rogers DO Work Phone: [facility] 04-08-2024 13:27-0500 Body temperature 98.2 [degF] Dr. Xiang Rogers DO Work Phone: [facility] 04-08-2024 13:27-0500 Body weight 87.[address] Xiang Rogers DO Work Phone: [facility] 04-08-2024 13:27-0500 Diastolic blood pressure 74 mm[Hg] Dr. Xiang ham DO Work Phone: [facility] 04-08-2024 13:27-0500 Heart rate 78 /min Dr. Xiang Rogers DO Work Phone: [facility] 04-08-2024 13:27-0500 Respiratory rate 16 /min Dr. Xiang Rogers DO Work Phone: [facility] 04-08-2024 13:27-0500 SaO2% (BldA) [Mass fraction] 97 % Dr. Xiang Rogers DO Work Phone: [facility] 04-08-2024 13:27-0500 Systolic blood pressure 127 mm[Hg] Dr. Xiang canales DO Work Phone: [facility] 04-01-2024 09:51-0500 Body mass index (BMI) [Ratio] 27.8 kg/m2 Dr. Xiang Rogers DO Work Phone: [facility] 04-01-2024 09:51-0500 Body weight 87.[address] Xiang Rogers DO Work Phone: [facility] 04-01-2024 09:51-0500 Diastolic blood pressure 80 mm[Hg] Dr. Xiang ham DO Work Phone: [facility] 04-01-2024 09:51-0500 Heart rate 76 /min Dr. Xiang Rogers DO Work Phone: [facility] 04-01-2024 09:51-0500 Respiratory rate 18 /min Dr. Xiang Rogers DO Work Phone: [facility] 04-01-2024 09:51-0500 SaO2% (BldA) [Mass fraction] 99 % Dr. Xiang Rogers DO Work Phone: [facility] 04-01-2024 09:51-0500 Systolic blood pressure 136 mm[Hg] Dr. Xiang canales DO Work Phone: [facility] 03-22-2024 11:03-0500 Body temperature 97.8 [degF] Dr. Xiang Rogesr DO Work Phone: [facility] 03-22-2024 11:03-0500 Body weight 87.[address] Xiang Rogers DO Work Phone: [facility] 03-22-2024 11:03-0500 Diastolic blood pressure 59 mm[Hg] Dr. Xiang ham DO Work Phone: [facility] 03-22-2024 11:03-0500 Heart rate 90 /min Dr. Xiang Rogers DO Work Phone: [facility] 03-22-2024 11:03-0500 Respiratory rate 16 /min Dr. Xiang Rogers DO Work Phone: [facility] 03-22-2024 11:03-0500 SaO2% (BldA) [Mass fraction] 97 % Dr. Xiang Rogers DO Work Phone: [facility] 03-22-2024 11:03-0500 Systolic blood pressure 112 mm[Hg] Dr. Xiang canlaes DO Work Phone: [facility] 02-24-2024 13:07-0500 Body mass index (BMI) [Ratio] 27.9 kg/m2 Dr. Xiang Rogers DO Work Phone: [facility] 02-24-2024 13:07-0500 Body temperature 97.6 [degF] Dr. Xiang Rogers DO Work Phone: [facility] 02-24-2024 13:07-0500 Body weight 88.[address] Xiang Rogers DO Work Phone: [facility] 02-24-2024 13:07-0500 Diastolic blood pressure 76 mm[Hg] Dr. Xiang ham DO Work Phone: [facility] 02-24-2024 13:07-0500 Heart rate 72 /min Dr. Xiang Rogers DO Work Phone: [facility] 02-24-2024 13:07-0500 Respiratory rate 16 /min Dr. Xiang Rogers DO Work Phone: [facility] 02-24-2024 13:07-0500 SaO2% (BldA) [Mass fraction] 97 % Dr. Xiang Rogers DO Work Phone: [facility] 02-24-2024 13:07-0500 Systolic blood pressure 126 mm[Hg] Dr. Xiang canales DO Work Phone: [facility] 02-24-2024 11:24-0500 Body temperature 98.4 [degF] Dr. Xiang Rogers DO Work Phone: [facility] 02-24-2024 11:24-0500 Body weight 88.[address] Xiang Rogers DO Work Phone: [facility] 02-24-2024 11:24-0500 Diastolic blood pressure 61 mm[Hg] Dr. Xiang ham DO Work Phone: [facility] 02-24-2024 11:24-0500 Heart rate 64 /min Dr. Xiang Rogers DO Work Phone: [facility] 02-24-2024 11:24-0500 Respiratory rate 16 /min Dr. Xiang Rogers DO Work Phone: [facility] 02-24-2024 11:24-0500 SaO2% (BldA) [Mass fraction] 98 % Dr. Xiang Rogers DO Work Phone: [facility] 02-24-2024 11:24-0500 Systolic blood pressure 105 mm[Hg] Dr. Xiang canales DO Work Phone: [facility] 12-31-2023 09:26-0400 Body mass index (BMI) [Ratio] 25.95 kg/m2 Gab Culver APRN.MANAGER [employer]MET[employer] Work Phone: [facility] 12-31-2023 09:26-0400 Body temperature 97.5 [degF] Gab Culver APRN.MANAGER [employer]METIC Work Phone: [facility] 12-31-2023 09:26-0400 Body weight 84.4 kg [facility] [employer] MACHINE OPERATOR.MANAGER [employer] Work Phone: [facility] 12-31-2023 09:26-0400 Diastolic blood pressure 75 mm[Hg] [facility] [employer] D[employer]LLING MACHINE OPERATOR.MANAGER [employer]METIC Work Phone: [facility] 12-31-2023 09:26-0400 Heart rate 78 /min [facility] [employer] DRILLING MACHINE OPERATOR.MANAGER [employer]METIC Work Phone: [facility] 12-31-2023 09:26-0400 Respiratory rate 18 /min [facility] [employer] DRILLING MACHINE OPERATOR.MANAGER [employer]METIC Work Phone: [facility] 12-31-2023 09:26-0400 SaO2% (BldA) [Mass fraction] 96 % [facility] [employer] DRILLING MACHINE OPERATOR.MANAGER [employer]METIC Work Phone: [facility] 12-31-2023 09:26-0400 Systolic blood pressure 126 mm[Hg] [facility] [employer] DRILLING MACHINE OPERATOR.MANAGER COSMETIC Work Phone: [facility] 06-02-2023 12:53-0500 Body height 180.[address] Xiang Rogers Work Phone: [facility] 06-02-2023 12:53-0500 Body mass index (BMI) [Ratio] 26.9 kg/m2 Dr. Xiang Rogers Work Phone: [facility] 06-02-2023 12:53-0500 Body temperature 97.4 [degF] Dr. Xiang Rogers Work Phone: [facility] 06-02-2023 12:53-0500 Body weight 87.[address] Xiang Rogers Work Phone: [facility] 06-02-2023 12:53-0500 Diastolic blood pressure 66 mm[Hg] Dr. Xiang ham Work Phone: [facility] 06-02-2023 12:53-0500 Heart rate 60 /min Dr. Xiang Rogers Work Phone: [facility] 06-02-2023 12:53-0500 Respiratory rate 18 /min Dr. Xiang Rogers Work Phone: [facility] 06-02-2023 12:53-0500 SaO2% (BldA) [Mass fraction] 96 % Dr. Xiang Rogers Work Phone: [facility] 06-02-2023 12:53-0500 Systolic blood pressure 125 mm[Hg] Dr. Xiang canales Work Phone: [facility] 05-24-2023 02:38-0500 Body temperature 97.7 [degF] Dr. Xiang Rogers Work Phone: [facility] 05-24-2023 02:38-0500 Diastolic blood pressure 61 mm[Hg] Dr. Xiang ham Work Phone: [facility] 05-24-2023 02:38-0500 Heart rate 71 /min Dr. Xiang Rogers Work Phone: [facility] 05-24-2023 02:38-0500 Respiratory rate 18 /min Dr. Xiang Rogers Work Phone: [facility] 05-24-2023 02:38-0500 SaO2% (BldA) [Mass fraction] 96 % Dr. Xiang Rogers Work Phone: [facility] 05-24-2023 02:38-0500 Systolic blood pressure 99 mm[Hg] Dr. Xiang canales Work Phone: [facility] 05-24-2023 00:23-0500 Body height 180.[address] Xiang Rogers Work Phone: [facility] 05-24-2023 00:23-0500 Body mass index (BMI) [Ratio] 25.8 kg/m2 Dr. Xiang Rogers Work Phone: [facility] 05-24-2023 00:23-0500 Body weight [address] Xiang Rogers Work Phone: [facility] 04-25-2023 17:36-0500 Body temperature 95 [degF] Dr. Xiang Rogers Work Phone: [facility] 04-25-2023 17:36-0500 Diastolic blood pressure 73 mm[Hg] Dr. Xiang ham Work Phone: [facility] 04-25-2023 17:36-0500 Heart rate 67 /min Dr. Xiang Rogers Work Phone: [facility] 04-25-2023 17:36-0500 Respiratory rate 18 /min Dr. Xiang Rogers Work Phone: [facility] 04-25-2023 17:36-0500 Systolic blood pressure 139 mm[Hg] Dr. Xiang canales Work Phone: [facility] 04-25-2023 15:25-0500 Body height 180.[address] Xiang Rogers Work Phone: [facility] 04-25-2023 15:25-0500 Body mass index (BMI) [Ratio] 26.7 kg/m2 Dr. Xiang Rogers Work Phone: [facility] 04-25-2023 15:25-0500 Body weight 87.[address] Xiang Rogers Work Phone: [facility] 04-25-2023 15:25-0500 SaO2% (BldA) [Mass fraction] 96 % Dr. Xiang Rogers Work Phone: [facility] 04-15-2023 09:24-0500 Body height 180.[address] Xiang Rogers Work Phone: [facility] 04-15-2023 09:24-0500 Body mass index (BMI) [Ratio] 26.9 kg/m2 Dr. Xiang Rogers Work Phone: [facility] 04-15-2023 09:24-0500 Body temperature 97.2 [degF] Dr. Xiang Rogers Work Phone: [facility] 04-15-2023 09:24-0500 Body weight 87.[address] Xiang Rogers Work Phone: [facility] 04-15-2023 09:24-0500 Diastolic blood pressure 70 mm[Hg] Dr. Xiang ham Work Phone: [facility] 04-15-2023 09:24-0500 Heart rate 81 /min Dr. Xiang Rogers Work Phone: [facility] 04-15-2023 09:24-0500 Respiratory rate 16 /min Dr. Xiang Rogers Work Phone: [facility] 04-15-2023 09:24-0500 SaO2% (BldA) [Mass fraction] 98 % Dr. Xiang Rogers Work Phone: [facility] 04-15-2023 09:24-0500 Systolic blood pressure 128 mm[Hg] Dr. Xiang canales Work Phone: [facility] 01-26-2023 15:28-0400 Body mass index (BMI) [Ratio] 27.3 kg/m2 Dr. Xiang Rogers Work Phone: [facility] 01-26-2023 15:28-0400 Body weight 88.[address] Xiang Rogers Work Phone: [facility] 01-26-2023 15:28-0400 Diastolic blood pressure 56 mm[Hg] Dr. Xiang ham Work Phone: [facility] 01-26-2023 15:28-0400 Heart rate 70 /min Dr. Xiang Rogers Work Phone: [facility] 01-26-2023 15:28-0400 Respiratory rate 18 /min Dr. Xiang Rogers Work Phone: [facility] 01-26-2023 15:28-0400 Systolic blood pressure 118 mm[Hg] Dr. Xiang canales Work Phone: [facility] 01-13-2023 09:27-0400 Body mass index (BMI) [Ratio] 27 kg/m2 Dr. Xiang Rogers Work Phone: [facility] 01-13-2023 09:27-0400 Body temperature 98.4 [degF] Dr. Xiang Rogers Work Phone: [facility] 01-13-2023 09:27-0400 Body weight 87.[address] Xiang Rogers Work Phone: [facility] 01-13-2023 09:27-0400 Diastolic blood pressure 70 mm[Hg] Dr. Xiang ham Work Phone: [facility] 01-13-2023 09:27-0400 Heart rate 61 /min Dr. Xiang Rogers Work Phone: [facility] 01-13-2023 09:27-0400 Respiratory rate 16 /min Dr. Xiang Rogers Work Phone: [facility] 01-13-2023 09:27-0400 SaO2% (BldA) [Mass fraction] 97 % Dr. Xiang Rogers Work Phone: [facility] 01-13-2023 09:27-0400 Systolic blood pressure 120 mm[Hg] Dr. Xiang canales Work Phone: [facility] 05-21-2022 01:34-0500 Body height 180.[address] Xiang Rogers Work Phone: [facility] 05-21-2022 01:34-0500 Body mass index (BMI) [Ratio] 29.1 kg/m2 Dr. Xiang Rogers Work Phone: [facility] 05-21-2022 01:34-0500 Body temperature 98.8 [degF] Dr. Xiang Rogers Work Phone: [facility] 05-21-2022 01:34-0500 Body weight 94.[address] Xiang Rogers Work Phone: [facility] 05-21-2022 01:34-0500 Diastolic blood pressure 79 mm[Hg] Dr. Xiang ham Work Phone: [facility] 05-21-2022 01:34-0500 Heart rate 74 /min Dr. Xiang Rogers Work Phone: [facility] 05-21-2022 01:34-0500 Respiratory rate 17 /min Dr. Xiang Rogers Work Phone: [facility] 05-21-2022 01:34-0500 SaO2% (BldA) [Mass fraction] 98 % Dr. Xiang Rogers Work Phone: [facility] 05-21-2022 01:34-0500 Systolic blood pressure 143 mm[Hg] Dr. Xiang canales Work Phone: [facility] 05-19-2022 13:35-0500 Body mass index (BMI) [Ratio] 28.5 kg/m2 Dr. Xiang Rogers Work Phone: [facility] 05-19-2022 13:35-0500 Body weight 92.[address] Xiang Rogers Work Phone: [facility] 05-19-2022 13:35-0500 Diastolic blood pressure 69 mm[Hg] Dr. Xiang ham Work Phone: [facility] 05-19-2022 13:35-0500 Heart rate 62 /min Dr. Xiang Rogers Work Phone: [facility] 05-19-2022 13:35-0500 Respiratory rate 18 /min Dr. Xiang Rogers Work Phone: [facility] 05-19-2022 13:35-0500 SaO2% (BldA) [Mass fraction] 96 % Dr. Xiang Rogers Work Phone: [facility] 05-19-2022 13:35-0500 Systolic blood pressure 128 mm[Hg] Dr. Xiang canales Work Phone: [facility] 04-24-2022 13:27-0500 Body mass index (BMI) [Ratio] 28.3 kg/m2 Dr. Xiang Rogers Work Phone: [facility] 04-24-2022 13:27-0500 Body temperature 98.3 [degF] Dr. Xiang Rogers Work Phone: [facility] 04-24-2022 13:27-0500 Body weight 92.[address] Xiang Rogers Work Phone: [facility] 04-24-2022 13:27-0500 Diastolic blood pressure 62 mm[Hg] Dr. Xiang ham Work Phone: [facility] 04-24-2022 13:27-0500 Heart rate 61 /min Dr. Xiang Rogers Work Phone: [facility] 04-24-2022 13:27-0500 Respiratory rate 14 /min Dr. Xiang Rogesr Work Phone: [facility] 04-24-2022 13:27-0500 SaO2% (BldA) [Mass fraction] 97 % Dr. Xiang Rogers Work Phone: [facility] 04-24-2022 13:27-0500 Systolic blood pressure 104 mm[Hg] Dr. Xiang canales Work Phone: [facility] 04-19-2022 14:53-0500 SaO2% (BldA) [Mass fraction] 95 % Dr. Xiang Rogers Work Phone: [facility] 04-19-2022 09:30-0500 Body temperature 97.9 [degF] Dr. Xiang Rogers Work Phone: [facility] 04-19-2022 09:30-0500 Diastolic blood pressure 77 mm[Hg] Dr. Xiang ham Work Phone: [facility] 04-19-2022 09:30-0500 Heart rate 79 /min Dr. Xiang Rogers Work Phone: [facility] 04-19-2022 09:30-0500 Respiratory rate 20 /min Dr. Xiang Rogers Work Phone: [facility] 04-19-2022 09:30-0500 Systolic blood pressure 110 mm[Hg] Dr. Xiang canales Work Phone: [facility] 04-18-2022 10:11-0500 Body weight 93.[address] Xiang Rogers Work Phone: [facility] 04-18-2022 05:51-0500 Body temperature 98 [degF] Dr. Xiang Rogers Work Phone: [facility] Work Phone: 04-18-2022 05:51-0500 Diastolic blood pressure 76 mm[Hg] Dr. Xiang ham Work Phone: [facility] Work Phone: 04-18-2022 05:51-0500 Heart rate 80 /min Dr. Xiang Rogers Work Phone: [facility] Work Phone: 04-18-2022 05:51-0500 Respiratory rate 18 /min Dr. Xiang Rogers Work Phone: [facility] Work Phone: 04-18-2022 05:51-0500 SaO2% (BldA) [Mass fraction] 92 % Dr. Xiang Rogers Work Phone: [facility] Work Phone: 04-18-2022 05:51-0500 Systolic blood pressure 123 mm[Hg] Dr. Xiang canales Work Phone: [facility] Work Phone: 04-18-2022 01:36-0500 Body height 180.[address] Xiang Rogers Work Phone: [facility] Work Phone: 04-18-2022 01:36-0500 Body mass index (BMI) [Ratio] 28.6 kg/m2 Dr. Xiang Rogers Work Phone: [facility] 04-18-2022 01:36-0500 Body weight 93.[address] Xiang Rogers Work Phone: [facility] Work Phone: 04-09-2022 14:00-0500 Body mass index (BMI) [Ratio] 27.4 kg/m2 Dr. Xiang Rogers Work Phone: [facility] 04-09-2022 14:00-0500 Body temperature 98.4 [degF] Dr. Xiang Rogers Work Phone: [facility] 04-09-2022 14:00-0500 Body weight 89.[address] Xiang Rogers Work Phone: [facility] 04-09-2022 14:00-0500 Diastolic blood pressure 78 mm[Hg] Dr. Xiang ham Work Phone: [facility] 04-09-2022 14:00-0500 Heart rate 65 /min Dr. Xiang Rogers Work Phone: [facility] 04-09-2022 14:00-0500 Respiratory rate 16 /min Dr. Xiang Rogers Work Phone: [facility] 04-09-2022 14:00-0500 SaO2% (BldA) [Mass fraction] 99 % Dr. Xiang Rogers Work Phone: [facility] 04-09-2022 14:00-0500 Systolic blood pressure 132 mm[Hg] Dr. Xiang canales Work Phone: [facility] 03-11-2022 12:30-0500 Body height 180.[address] Xiang Rogers Work Phone: [facility] Work Phone: 03-11-2022 12:30-0500 Body mass index (BMI) [Ratio] 26.9 kg/m2 Dr. Xiang Rogers Work Phone: [facility] 03-11-2022 12:30-0500 Body temperature 98 [degF] Dr. Xiang Rogers Work Phone: [facility] 03-11-2022 12:30-0500 Body weight 87.[address] Xiang Rogers Work Phone: [facility] 03-11-2022 12:30-0500 Diastolic blood pressure 76 mm[Hg] Dr. Xiang ham Work Phone: [facility] 03-11-2022 12:30-0500 Heart rate 87 /min Dr. Xiang Rogers Work Phone: [facility] 03-11-2022 12:30-0500 Respiratory rate 16 /min Dr. Xiang Rogers Work Phone: [facility] 03-11-2022 12:30-0500 SaO2% (BldA) [Mass fraction] 97 % Dr. Xiang Rogers Work Phone: [facility] 03-11-2022 12:30-0500 Systolic blood pressure 153 mm[Hg] Dr. Xiang canales Work Phone: [facility] 03-01-2022 19:47-0500 Body height 180.[address] Xiang Rogers Work Phone: [facility] Work Phone: 03-01-2022 19:47-0500 Body mass index (BMI) [Ratio] 27.9 kg/m2 Dr. Xiang Rogers Work Phone: [facility] 03-01-2022 19:47-0500 Body temperature 96.8 [degF] Dr. Xiang Rogers Work Phone: [facility] 03-01-2022 19:47-0500 Body weight [address] Xiang Rogers Work Phone: [facility] 03-01-2022 19:47-0500 Diastolic blood pressure 75 mm[Hg] Dr. Xiang ham Work Phone: [facility] 03-01-2022 19:47-0500 Heart rate 103 /min Dr. Xiang Rogers Work Phone: [facility] 03-01-2022 19:47-0500 Respiratory rate 16 /min Dr. Xiang Rogers Work Phone: [facility] 03-01-2022 19:47-0500 SaO2% (BldA) [Mass fraction] 94 % Dr. Xiang Rogers Work Phone: [facility] 03-01-2022 19:47-0500 Systolic blood pressure 141 mm[Hg] Dr. Xiang canales Work Phone: [facility] 02-04-2022 08:30-0400 Body temperature 98.01 [degF] Yamilka Parekh MD Work Phone: [facility] 02-04-2022 08:30-0400 Body weight 87.18 kg Yamilka Parekh MD Work Phone: [facility] 02-04-2022 08:30-0400 Diastolic blood pressure 74 mm[Hg] Yamilka Parekh MD Work Phone: [facility] 02-04-2022 08:30-0400 Heart rate 80 /min Yamilka Parekh MD Work Phone: [facility] 02-04-2022 08:30-0400 SaO2% (BldA) [Mass fraction] 98 % Yamilka Parekh MD Work Phone: [facility] 02-04-2022 08:30-0400 Systolic blood pressure 128 mm[Hg] Yamilka Parekh MD Work Phone: [facility] 01-28-2022 10:40-0400 Body height 180.3 cm Yamilka Parekh MD Work Phone: [facility] 01-28-2022 10:40-0400 Body temperature 97.3 [degF] Yamilka Parekh MD Work Phone: [facility] 01-28-2022 10:40-0400 Body weight 87.36 kg Yamilka Parekh MD Work Phone: [facility] 01-28-2022 10:40-0400 Diastolic blood pressure 70 mm[Hg] Yamilka Parekh MD Work Phone: [facility] 01-28-2022 10:40-0400 Heart rate 79 /min Yamilka Parekh MD Work Phone: [facility] 01-28-2022 10:40-0400 SaO2% (BldA) [Mass fraction] 98 % Yamilka Parekh MD Work Phone: [facility] 01-28-2022 10:40-0400 Systolic blood pressure 124 mm[Hg] Yamilka Parekh MD Work Phone: [facility] 01-06-2022 09:25-0400 Body height 180.3 cm Yamilka Parekh MD Work Phone: [facility] 01-06-2022 09:25-0400 Body temperature 97.7 [degF] Yamilka Parekh MD Work Phone: [facility] 01-06-2022 09:25-0400 Body weight 88.27 kg Yamilka Parekh MD Work Phone: [facility] 01-06-2022 09:25-0400 Diastolic blood pressure 77 mm[Hg] Yamilka Parekh MD Work Phone: [facility] 01-06-2022 09:25-0400 Heart rate 84 /min aYmilka Parekh MD Work Phone: [facility] 01-06-2022 09:25-0400 SaO2% (BldA) [Mass fraction] 99 % Yamilka Parekh MD Work Phone: [facility] 01-06-2022 09:25-0400 Systolic blood pressure 160 mm[Hg] Yamilka Parekh MD Work Phone: [facility] 01-01-2022 14:08-0400 Body height 180.[address] Xiang Rogers Work Phone: [facility] Work Phone: 01-01-2022 14:08-0400 Body mass index (BMI) [Ratio] 27.3 kg/m2 Dr. Xiang Rogers Work Phone: [facility] Work Phone: 01-01-2022 14:08-0400 Body temperature 98.5 [degF] Dr. Xiang Rogers Work Phone: [facility] Work Phone: 01-01-2022 14:08-0400 Body weight 89.[address] Xiang Rogers Work Phone: [facility] Work Phone: 01-01-2022 14:08-0400 Diastolic blood pressure 64 mm[Hg] Dr. Xiang ham Work Phone: [facility] Work Phone: 01-01-2022 14:08-0400 Heart rate 64 /min Dr. Xiang Rogers Work Phone: [facility] Work Phone: 01-01-2022 14:08-0400 Respiratory rate 18 /min Dr. Xiang Rogers Work Phone: [facility] Work Phone: 01-01-2022 14:08-0400 SaO2% (BldA) [Mass fraction] 95 % Dr. Xiang Rogers Work Phone: [facility] Work Phone: 01-01-2022 14:08-0400 Systolic blood pressure 122 mm[Hg] Dr. Xiang canales Work Phone: [facility] Work Phone: 12-09-2021 01:16-0400 Diastolic blood pressure 71 mm[Hg] Dr. Xiang ham Work Phone: [facility] Work Phone: 12-09-2021 01:16-0400 Heart rate 74 /min Dr. Xiang Rogers Work Phone: [facility] Work Phone: 12-09-2021 01:16-0400 Respiratory rate 19 /min Dr. Xiang Rogers Work Phone: [facility] Work Phone: 12-09-2021 01:16-0400 SaO2% (BldA) [Mass fraction] 95 % Dr. Xiang Rogers Work Phone: [facility] Work Phone: 12-09-2021 01:16-0400 Systolic blood pressure 144 mm[Hg] Dr. Xiang canales Work Phone: [facility] Work Phone: 12-08-2021 23:18-0400 Body height 180.[address] Xiang Rogers Work Phone: [facility] Work Phone: 12-08-2021 23:18-0400 Body mass index (BMI) [Ratio] 26.4 kg/m2 Dr. Xiang Rogers Work Phone: [facility] Work Phone: 12-08-2021 23:18-0400 Body temperature 97.9 [degF] Dr. Xiang Rogers Work Phone: [facility] Work Phone: 12-08-2021 23:18-0400 Body weight 86.[address] Xiang Rogers Work Phone: [facility] Work Phone: 09-18-2021 14:32-0400 Body mass index (BMI) [Ratio] 26.7 kg/m2 Dr. Xiang Rogers Work Phone: [facility] Work Phone: 09-18-2021 14:32-0400 Body temperature 97.2 [degF] Dr. Xiang Rogers Work Phone: [facility] Work Phone: 09-18-2021 14:32-0400 Body weight 87.[address] Xiang Rogers Work Phone: [facility] Work Phone: 09-18-2021 14:32-0400 Diastolic blood pressure 70 mm[Hg] Dr. Xiang ham Work Phone: [facility] Work Phone: 09-18-2021 14:32-0400 Heart rate 86 /min Dr. Xiang Rogers Work Phone: [facility] Work Phone: 09-18-2021 14:32-0400 Respiratory rate 16 /min Dr. Xiang Rogers Work Phone: [facility] Work Phone: 09-18-2021 14:32-0400 SaO2% (BldA) [Mass fraction] 97 % Dr. Xiang Rogers Work Phone: [facility] Work Phone: 09-18-2021 14:32-0400 Systolic blood pressure 116 mm[Hg] Dr. Xiang canales Work Phone: [facility] Work Phone: 07-19-2021 00:14-0400 Heart rate 78 /min Dr. Xiang Rogers Work Phone: [facility] Work Phone: 07-19-2021 00:14-0400 Respiratory rate 18 /min Dr. Xiang Rogers Work Phone: [facility] Work Phone: 07-19-2021 00:14-0400 SaO2% (BldA) [Mass fraction] 95 % Dr. Xiang Rogers Work Phone: [facility] Work Phone: 07-18-2021 20:48-0400 Body height 180.[address] Xiang Rogers Work Phone: [facility] Work Phone: 07-18-2021 20:48-0400 Body mass index (BMI) [Ratio] 26.9 kg/m2 Dr. Xiang Rogers Work Phone: [facility] Work Phone: 07-18-2021 20:48-0400 Body temperature 98.8 [degF] Dr. Xiang Rogers Work Phone: [facility] Work Phone: 07-18-2021 20:48-0400 Body weight 87.[address] Xiang Rogers Work Phone: [facility] Work Phone: 07-18-2021 20:48-0400 Diastolic blood pressure 83 mm[Hg] Dr. Xiang ham Work Phone: [facility] Work Phone: 07-18-2021 20:48-0400 Systolic blood pressure 151 mm[Hg] Dr. 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 OPERATOR.MANAGER COSMETIC Work Phone: [facility] 07-18-2021 12:52-0400 Body weight 88 kg [facility] [employer] GOODS DRILLING MACHINE OPERATOR.MANAGER COSMETIC Work Phone: [facility] 07-18-2021 12:52-0400 Diastolic blood pressure 74 mm[Hg] [facility] OPT[employer] GOODS DRILLING MACHINE OPERATOR.MANAGER COSMETIC Work Phone: [facility] 07-18-2021 12:52-0400 Heart rate 100 /min Gabpari Ortegaalton OPTICAL GOODS DRILLING MACHINE OPERATOR.MANAGER COSMETIC Work Phone: [facility] 07-18-2021 12:52-0400 Respiratory rate 18 /min [facility] [employer] GOODS DRILLING MACHINE OPERATOR.MANAGER COSMETIC Work Phone: [facility] 07-18-2021 12:52-0400 SaO2% (BldA) [Mass fraction] 96 % Gab Culver OPT[employer] GOODS DRILLING MACHINE OPERATOR.MANAGER COSMETIC Work Phone: [facility] 07-18-2021 12:52-0400 Systolic blood pressure 122 mm[Hg] Gab Culver OPTICAL GOODS DRILLING MACHINE OPERATOR.MANAGER COSMETIC Work Phone: [facility] 06-13-2021 13:57-0500 Body temperature 97.8 [degF] Dr. Xiang Rogers Work Phone: [facility] Work Phone: 06-13-2021 13:57-0500 Body weight 88.[address] Xiang Rogers Work Phone: [facility] Work Phone: 06-13-2021 13:57-0500 Diastolic blood pressure 74 mm[Hg] Dr. Xiang ham Work Phone: [facility] Work Phone: 06-13-2021 13:57-0500 Heart rate 68 /min Dr. Xiang Rogers Work Phone: [facility] Work Phone: 06-13-2021 13:57-0500 Respiratory rate 16 /min Dr. Xiang Rogers Work Phone: [facility] Work Phone: 06-13-2021 13:57-0500 SaO2% (BldA) [Mass fraction] 98 % Dr. Xiang Rogers Work Phone: [facility] Work Phone: 06-13-2021 13:57-0500 Systolic blood pressure 130 mm[Hg] Dr. Xiang canales Work Phone: [facility] Work Phone: Encounters Encounter Date Encounter Type Care Provider Facility Start: 02-14-2025 Evaluation and management of inpatient XIANG ROGERS Facility:[facility] Start: 02-14-2025 End: 02-14-2025 ambulatory CELE PORTER Facility:[facility] Start: 02-06-2025 End: 02-06-2025 [facility] Start: 02-06-2025 End: 02-06-[address] [facility] Start: 01-18-2025 ambulatory Stefan Yusuf [facility] Start: 12-29-2024 ambulatory Stefan Yusuf Facility:[facility] Start: 12-22-2024 ambulatory Stefan Yusuf [facility] Start: 12-20-2024 End: 01-09-2025 Evaluation and management of inpatient DONNA HARTLEY Facility:[facility] Start: 12-19-2024 ambulatory Stefan Yusuf [facility] Start: 12-19-2024 End: 12-20-2024 Evaluation and management of inpatient Stefan Yusuf Facility:[facility] Start: 12-19-2024 End: 12-20-2024 Telephone encounter Itzel Sabillon MD Work Phone: [facility] Provider Adult Comment on above: Hospital Admission Start: 11-30-2024 ambulatory Xiang Rogers Facilit y:[facility] Start: 11-28-2024 ambulatory Xiang Rogers Facilit y:[facility] Start: 11-22-2024 ambulatory Xiang Rogers Facilit y:[facility] Start: 11-22-2024 End: 12-08-2024 Evaluation and management of inpatient Dr. Xiang Rogers DO Work Phone: -Progressive Care Unit Start: 11-22-2024 Dr. Flori Johnson MD - [facility] Work Phone: Start: 11-16-2024 End: 11-16-2024 Lub[place] DEVINE -[facility] Work Phone: Start: 11-16-2024 End: 11-16-[address] Xiang Rogers DO Work Phone: -[facility] Start: 11-14-2024 Dr. Xiang Will DO -[facility] Work Phone: Start: 11-14-2024 ambulatory Xiang Rogers Facilit y:[facility] Start: 11-13-2024 Dr. Steve Fields MD [facility] Work Phone: Start: 11-12-2024 Dr. Steve Fields MD - [facility] Work Phone: Start: 11-11-2024 Dr. Buck Trevino MD -[facility] Start: 11-11-2024 Dr. Steve Fields MD - [facility] Work Phone: Start: 11-10-2024 ambulatory Xiang Rogers Facilit y:[facility] Start: 11-10-2024 End: 11-13-2024 Evaluation and management of inpatient Dr. Xiang Rogers DO Work Phone: -Progressive Care Unit Start: 11-10-2024 End: 11-13-2024 Dr. Corazon Diaz MD -[facility] Work Phone: Start: 11-10-2024 End: 11-10-2024 Leah GARSIA -[facility] [facility] Work Phone: Start: 11-10-2024 End: 11-10-[address] Xiang Rogers DO Work Phone: -[facility] Start: 11-04-2024 End: 11-04-2024 Dr. Xiang Will DO -[facility] Work Phone: Start: 11-04-2024 End: 11-04-[address] Xiang Rogers DO Work Phone: -[facility] Start: 11-03-2024 End: 11-03-2024 Magaly DEVINE -[facility] Work Phone: Start: 11-03-2024 End: 11-03-[address] Xiang Rogers DO Work Phone: -[facility] Start: 10-26-2024 End: 10-27-2024 Dr. [...] Work Phone: -Emergency Department Start: 10-11-2024 ambulatory Xiang Rogers Facilit y:[facility] Start: 09-27-2024 End: 09-27-2024 Magaly Abdi ME -[facility] Work Phone: Start: 09-27-2024 End: 09-27-[address] Xiang Rogers DO Work Phone: [facility] Work Phone: Start: 09-21-2024 Dr. Donna Hartley MD -[facility] Work Phone: Start: 09-20-2024 Dr. Seth Carrington DO -[facility] Work Phone: Start: 09-19-2024 ambulatory Xiang Rogers Facilit y:[facility] Start: 09-19-2024 Dr. Seth Carrington DO -[facility] Work Phone: Start: 09-18-2024 End: 09-21-2024 ambulatory Clinton Soares Facility:[facility] Start: 09-18-2024 End: 09-21-2024 Evaluation and management of inpatient Dr. Xiang Rogers DO Work Phone: [facility] Work Phone: Start: 09-18-2024 End: 09-21-2024 Dr. Clinton Soares DO -Progressive Care Unit Work Phone: Start: 09-08-2024 End: 09-08-[address] Xiang Rogers DO Work Phone: [facility] Work Phone: Start: 09-08-2024 End: 09-08-2024 Dr. Saúl Flowers MD -[facility] Start: 09-08-2024 End: 09-08-2024 ambulatory Xiang Rogers Facility:[facility] Start: 08-02-2024 End: 08-02-2024 Dr. Xiang Will DO -[facility] Work Phone: Start: 08-02-2024 End: 08-02-2024 ambulatory Xiang Rogers Facility:[facility] Start: 07-29-2024 End: 07-29-2024 Dr. Lawson Bundy -Emergency Departmen t Work Phone: Start: 07-29-2024 End: 07-29-2024 Emergency department patient visit Xiang Rogers Facility:[facility] Start: 07-14-2024 End: 07-14-2024 Lubna EDVINE -[facility] Work Phone: Start: 07-14-2024 End: 07-14-2024 ambulatory Xiang Rogers Facility:[facility] Start: 07-12-2024 End: 07-12-2024 Ronit Galvez NP-C -[facility] Work Phone: Start: 07-12-2024 End: 07-12-2024 ambulatory Xiang Rogers Facility:[facility] Start: 06-20-2024 ambulatory Xiang Rogers Facilit y:[facility] Start: 06-20-2024 Dr. Seth Carrington DO -[facility] Work Phone: Start: 06-20-2024 Dr. Calos Quinn MD -[facility] Start: 06-19-2024 Dr. Alexandru Mckeon MD -[facility] Start: 06-19-2024 Dr. Donna Hartley MD -[facility] Work Phone: Start: 06-18-2024 ambulatory Xiang Rogers Facilit y:[facility] Start: 06-18-2024 Dr. Alexandru Mckeon MD -[facility] Start: 06-18-2024 ambulatory Xiang Rogers Facilit y:[facility] Start: 06-18-2024 End: 06-20-2024 Evaluation and management of inpatient Xiang Rogers Facility:[facility] Start: 06-18-2024 End: 06-20-2024 Dr. Seth Carrington DO -Progressive Care Unit Work Phone: Start: 06-15-2024 ambulatory Xiang Rogers Facilit y:[facility] Start: 06-15-2024 Non-patient / Non-visit Garret Saldana -[facility] Start: 06-15-2024 Magaly frazier PA [facility] Start: 06-13-2024 Non-patient / Non-visit Dr. Saúl talbert MD -[facility] Start: 06-13-2024 End: 06-13-[address] Xiang Rogers DO Work Phone: [facility] Work Phone: Start: 06-13-2024 End: 06-13-2024 Patient encounter procedure Lubna DEVINE -Cardiovascular Services Work Phone: Start: 06-13-2024 End: 06-13-2024 Dr. Saúl Flowers MD -[facility] Start: 06-13-2024 End: 06-13-2024 ambulatory Xiang Rogers Facility:[facility] Start: 06-07-2024 ambulatory Xiang Rogers Facilit y:[facility] Start: 05-21-2024 End: 05-21-2024 Dr. Saúl Aguilar DO -Emergency Departme nt Work Phone: Start: 05-21-2024 End: 05-21-2024 Emergency department patient visit Dr. Saúl Aguilar DO -Emergency Department Work Phone: Start: 05-17-2024 End: 05-17-2024 Patient encounter procedure Lubna DEVINE -[facility] Work Phone: Start: 05-17-2024 End: 05-17-2024 [place] DEVINE -[facility] Work Phone: Start: 05-17-2024 End: 05-17-2024 ambulatory Xiangtoni Rogers Facility:[facility] Start: 05-09-2024 ambulatory Xiang Will Joaquin Facilit y:[facility] Start: 05-09-2024 Non-patient / Non-visit Dr. Ren WESTBROOK -[facility] Start: 05-09-2024 End: 05-09-2024 Patient encounter procedure Magaly DEVINE -Cardiovascular Services Work Phone: Start: 05-09-2024 End: 05-09-2024 ambulatory Xiang Rogers Facility:[facility] Start: 05-03-2024 End: 05-03-[address] Xiang Will DO -[facility] Work Phone: Start: 05-03-2024 End: 05-03-2024 ambulatory Xiang Will Joaquin Facility:[facility] Start: 04-20-2024 ambulatory Xiang Rogers Facilit y:[facility] Start: 04-20-2024 Non-patient / Non-visit Dr. Saúl talbert MD -[facility] Start: 04-20-2024 End: 04-20-2024 Admission to same day surgery center Dr. Saúl Flowers MD -Demand Planning Manager/Special Procedures Work Phone: Start: 04-20-2024 End: 04-20-2024 ambulatory Xiang Will Joaquin Facility:[facility] Start: 04-08-2024 End: 04-08-2024 Patient encounter procedure Lubna DEVINE -[facility] Work Phone: Start: 04-08-2024 End: 04-08-2024 ambulatory Xiang Suman Rogers Facility:[facility] Start: 04-01-2024 End: 04-01-2024 Patient encounter procedure Magaly DEVINE -[facility] Work Phone: Start: 04-01-2024 End: 04-01-2024 ambulatory Xiang R Joaquin Facility:[facility] Start: 03-29-2024 End: 03-29-2024 Patient encounter procedure [place] DEVINE -[facility] Work Phone: Start: 03-29-2024 End: 03-29-2024 ambulatory Xiang Rogers Facility:[facility] Start: 03-22-2024 End: 03-22-2024 Patient encounter procedure Lubna DEVINE -[facility] Work Phone: Start: 03-22-2024 End: 03-22-2024 ambulatory Xiang Rogers Facility:[facility] Start: 03-09-2024 ambulatory Xiang Rogers Facilit y:[facility] Start: 03-09-2024 Non-patient / Non-visit Dr. Saúl talbert MD -[facility] Start: 03-09-2024 End: 03-09-2024 Patient encounter procedure Jose Small DPM -Cardiovascular Services Work Phone: Start: 03-09-2024 End: 03-09-2024 ambulatory Xiang Rogers Facility:[facility] Start: 02-24-2024 End: 02-24-[address] Xiang Will DO -[facility] Work Phone: Start: 02-24-2024 End: 02-24-2024 ambulatory Xiang Rogers Facility:[facility] Start: 02-24-2024 End: 02-24-2024 Patient encounter procedure Lubna DEVINE -[facility] Work Phone: Start: 02-24-2024 End: 02-24-2024 ambulatory Xiang Rogers Facility:[facility] Start: 02-23-2024 End: 02-23-2024 ambulatory Xiang Rogers Facility:[facility] Start: 01-27-2024 ambulatory Xiang Rogers Facilit y:[facility] Start: 12-31-2023 End: 12-31-2023 Office outpatient visit 25 minutes Gab Culver APRN.CNP Work Phone: [facility] Comment on above: Sinobronchitis (Prim jagjit Dx) Start: 06-02-2023 End: 06-02-[address] Xiang Rogers Work Phone: [facility] Work Phone: Start: 06-02-2023 End: 06-02-[address] Xiang Rogers Work Phone: [facility] Work Phone: Start: 05-24-2023 End: 05-24-2023 Emergency department patient [facility] Start: 04-25-2023 End: 04-25-2023 Emergency department patient visit Dr. Xiang Rogers Work Phone: [facility]-Emergency Department Work Phone: Start: 04-15-2023 End: 04-15-[address] Xiang Rogers Work Phone: [facility] Work Phone: Start: 04-15-2023 End: 04-15-[address] Xiang Rogers Work Phone: [facility] Work Phone: Start: 01-26-2023 End: 01-26-[address] Xiang Rogers Work Phone: [facility] Work Phone: Start: 01-13-2023 End: 01-13-[address] Xiang Rogers Work Phone: [facility] Work Phone: Start: 06-02-2022 End: 06-02-[address] Xiang Rogers Work Phone: [facility] Work Phone: Start: 06-02-2022 End: 06-02-[address] Xiang Rogers Work Phone: [facility]-Laboratory Start: 05-23-2022 Non-patient / Non-visit Dr. Velazquez Work Phone: [facility] Start: 05-21-2022 End: 05-21-2022 Emergency department patient visit Dr. Xiang Rogers Work Phone: [facility]-Emergency Department Start: 05-19-2022 End: 05-19-[address] Xiang Rogers Work Phone: [facility] Start: 04-24-2022 End: 04-24-[address] Xiang Rogers Work Phone: [facility] Start: 04-21-2022 Non-patient / Non-visit Dr. Velazquez Work Phone: [facility] Start: 04-19-2022 Non-patient / Non-visit Dr. Velazquez Work Phone: [facility] Start: 04-19-2022 Non-patient / Non-visit Dr. Velazquez Work Phone: [facility] Start: 04-18-2022 Non-patient / Non-visit Dr. Velazquez Work Phone: [facility] Start: 04-18-2022 End: 04-19-2022 Evaluation and management of inpatient Dr. Xiang Rogers Work Phone: [facility]-Intensive Care Unit Start: 04-09-2022 End: 04-09-[address] Xiang Rogers Work Phone: [facility] Start: 03-11-2022 End: 03-11-[address] Xiang Rogers Work Phone: [facility] Work Phone: Start: 03-11-2022 End: 03-11-[address] Xiang Rogers Work Phone: [facility] Start: 03-01-2022 End: 03-01-2022 Emergency department patient visit Dr. Xiang Rogers Work Phone: [facility]-Emergency Department Start: 02-04-2022 End: 02-04-2022 Patient encounter procedure Yamilka Parekh MD Work Phone: General Surgery Comment on above: Recurrent left ingui nal hernia (Primary Dx) Start: 01-28-2022 End: 01-28-2022 Patient encounter procedure Yamilka Parekh MD Work Phone: General Surgery Comment on above: Left groin pain (Ruchi frantz Dx) Start: 01-28-2022 End: 01-28-2022 Subsequent hospital visit by physician [facility] (I-Stat) Work Phone: Cat Scan Comment on above: Left groin pain [R10 .32] Start: 01-08-2022 Non-patient / Non-visit Dr. Velazquez Work Phone: [facility] Internal [facility] Start: 01-06-2022 End: 01-06-2022 Patient encounter procedure Yamilka Parekh MD Work Phone: General Surgery Comment on above: Left groin pain (Ruchi frantz Dx) Start: 01-01-2022 End: 01-01-[address] Xiang Rogers Work Phone: [facility] Work Phone: Start: 01-01-2022 End: 01-01-[address] Xiang Rogers Work Phone: [facility] Start: 12-08-2021 End: 12-09-2021 Emergency department patient visit Dr. Xiang Rogers Work Phone: [facility]-Emergency Department Start: 09-18-2021 End: 09-18-[address] Xiang Rogers Work Phone: [facility] Start: 07-18-2021 End: 07-19-2021 Emergency department patient visit Dr. Xiang Rogers Work Phone: [facility]-Emergency Department Start: 07-18-2021 End: 07-18-2021 Patient encounter procedure Gab Culver APRN.MANAGER COSMETIC Work Phone: [facility] Comment on above: URI with cough and c ongestion (Primary Dx) Start: 06-13-2021 End: 06-13-[address] Xiang Rogers Work Phone: [facility]-Laboratory, [facility] Procedures Date Procedure Procedure Detail Performing Clinician Start: 01-02-2025 Antibody screen DONNA P IERCE Comment on above: Order Comment: Speci men Type: BLOOD SPECIMENOrdering Facility: [facility] Address: [address] [place] [address] Performed By: #### T SCR ####RUBY BLO[facility] BANKCLIA [id number] [address] Start: 12-29-2024 Antibody screen DONNA P IERCE Comment on above: Order Comment: Speci men Type: BLOOD SPECIMENOrdering Facility: [facility] Address: [address] [place] [address] Performed By: #### T SCR ####RU[facility] BLOOD BANKCLIA [id number] [address] Start: 12-25-2024 Antibody screen DONNA P IERCE Comment on above: Order Comment: Speci men Type: BLOOD SPECIMENOrdering Facility: [facility] Address: [address] [place] [address] Performed By: #### T SCR ####RUBY BLOOD BANKCLIA [id number] [place] [id number] [facility] Start: 12-21-2024 Echocardiography DONNA HARTLEY Start: 12-20-2024 Antibody screen DONNA P IERCE Comment on above: Order Comment: Speci men Type: BLOOD SPECIMENOrdering Facility: [facility] Address: [address] [place] [address] Performed By: #### T SCR ####RUBY BLOOD BANKCLIA [id number] [address] Start: 11-22-2024 Plain x-ray of pelvi s [...] DO Work Phone: Start: 11-22-2024 Mean corpuscular hem oglobin concentration determination Dr. Xiang Rogers DO Work [...] DO Work Phone: Start: 11-13-2024 Mean corpuscular hem oglobin concentration determination Dr. Xiang Rogers DO Work [...] DO Work Phone: Start: 11-10-2024 Carbon dioxide measu rement, partial pressure Dr. Xiang Rogers DO Work [...] DO Work Phone: Start: 11-10-2024 Mean corpuscular hem oglobin concentration determination Dr. Xiang Rogers DO Work Phone: Start: 11-10-2024 Nucleated red blood cell count procedure Dr. Xiang Rogers DO Work Phone: Start: 11-10-2024 Platelet mean volume determination Dr. Xiang Rogers DO Work Phone: Start: 11-10-2024 Dr. Latoya Rogers DO Work Phone: Start: 10-27-2024 Urine microscopy: red cells Dr. Xiang Rogers DO Work Phone: Start: 10-27-2024 Urnls dip stick/tabl et reagent auto microscopy Dr. Xiang Rogers DO Work Phone: Start: 10-27-2024 Venous oxygen satura tion measurement Dr. Xiang Rogers DO Work Phone: Start: 10-27-2024 End: 10-27-2024 Blood count smear mcrscp w/mnl difrntl wbc count Dr. Xiang Rogers DO Work Phone: Start: 10-27-2024 Mean corpuscular hem oglobin concentration determination Dr. Xiang Rogers DO Work [...] DO Work Phone: Start: 10-23-2024 Mean corpuscular hem oglobin concentration determination Dr. Xiang Rogers DO Work [...] DO Work Phone: Start: 10-19-2024 Mean corpuscular hem oglobin concentration determination Dr. Xiang Rogers DO Work [...] DO Work Phone: Start: 09-19-2024 Mean corpuscular hem oglobin concentration determination Dr. Xiang Rogers DO Work Phone: Start: 09-19-2024 Platelet mean volume determination Dr. Xiang Rogers DO Work Phone: Start: 09-18-2024 Plain chest X-ray Dr. Jovana Rogers DO Work Phone: Start: 09-18-2024 Blood count smear mc rscp w/mnl difrntl wbc count Dr. Xiang Rogers DO Work Phone: Start: 09-18-[address] Xiang Rogers DO Work Phone: Start: 09-18-2024 Mean corpuscular hem oglobin concentration determination Dr. Xiang Rogers DO Work [...] DO Work Phone: Start: 07-29-2024 Mean corpuscular hem oglobin concentration determination Dr. Xiang Rogers DO Work [...] DO Work Phone: Start: 06-20-2024 Mean corpuscular hem oglobin concentration determination Dr. Xiang Rogers DO Work [...] Rogers DO Work Phone: Start: 06-18-2024 Dr. Ltaoya Rogers DO Work Phone: Start: 06-18-2024 Urine microscopy: red cells Dr. Xiang Rogers DO Work Phone: Start: 06-18-2024 Urnls dip stick/tabl et reagent auto microscopy Dr. Xiang Rogers DO Work Phone: Start: 06-18-2024 Carbon dioxide measu rement, partial pressure Dr. Xiang Rogers DO Work [...] Adult depression scr eening assessment Gab Culver OPT[employer] DRILLING MACHINE OPERATOR.MANAGER COSMETIC Work Phone: Start: 04-06-2006 History of coronary [...] DTaP,Tdap,Td Vaccine (3 - Td or Tdap) [facility] Start: 12-20-2025 Creatinine measurement Serum Creatin ine [facility] Start: 12-20-2025 Hepatitis B surface antibody level LDL Cholesterol [facility] Start: 12-20-2025 Screening for malign ant neoplasm of lung Lung Cancer Screening [facility] Start: 03-21-2025 Hemoglobin A1c measurement HbA1C [facility] Start: 12-05-2024 Influenza vaccination Influenza Vacc ine (#1) [facility] Start: 11-22-[address] [facility] Start: 11-22-2024 Hospital admission, emergency, from emergency room, medical nature [facility] Start: 11-22-2024 End: 11-22-2024 [facility] Start: 11-13-2024 Patient discharge [facility] Start: 11-13-2024 Physiotherapy of chest [facility] Start: 11-11-2024 [facility] Start: 11-11-2024 Referral to aircraft communicator [facility] Start: 11-10-2024 Following clinical pathway protocol [facility] Start: 11-10-2024 Application of elast ic bandage [facility] Start: 11-10-2024 Assessment of risk o f venous thromboembolism [facility] Start: 11-10-2024 Care regimes management [facility] Start: 11-10-2024 Consultation for treatment [facility] Start: 11-10-2024 Elevation of affecte d extremity [facility] Start: 11-10-2024 Inhalation therapy procedure [facility] Start: 11-10-2024 Insertion of cathete r into peripheral vein [facility] Start: 11-10-2024 Introduction of urin jagjit catheter [facility] Start: 11-10-2024 Measuring intake and output [facility] Start: 11-10-2024 Notification of physician [facility] Start: 11-10-2024 Oxygen therapy [facility] Start: 11-10-2024 Patient education [facility] Start: 11-10-2024 Patient referral to dietitian [facility] Start: 11-10-2024 Providing care accor ding to standard [facility] Start: 11-10-2024 Provision of activit y privileges [facility] Start: 11-10-[address] [facility] Start: 11-10-2024 Tobacco use cessatio n education [facility] Start: 11-10-2024 Wound care [facility] Start: 11-10-2024 End: 11-10-2024 [facility] Start: 11-10-2024 Gas panel - Arterial blood [facility] Start: 11-10-2024 Verification routine [facility] Start: 11-10-[address] [facility] Start: 11-10-2024 Hospital admission, emergency, from emergency room, medical nature [facility] Start: 11-10-2024 [facility] Start: 11-10-2024 Patient referral to dietitian [facility] Start: 10-27-2024 [facility] Start: 10-23-2024 [facility] Start: 10-21-2024 [facility] Start: 10-19-2024 [facility] Start: 09-21-2024 Patient discharge [facility] Start: 09-20-2024 [facility] Start: 09-19-2024 [facility] Start: 09-18-2024 Following clinical pathway protocol [facility] Start: 09-18-2024 Ambulation without limitation [facility] Start: 09-18-2024 Assessment of risk o f venous thromboembolism [facility] Start: 09-18-2024 Care regimes management [facility] Start: 09-18-2024 Insertion of cathete r into peripheral vein [facility] Start: 09-18-2024 Measuring intake and output [facility] Start: 09-18-2024 Notification of physician [facility] Start: 09-18-2024 Oxygen therapy [facility] Start: 09-18-2024 Providing care accor ding to standard [facility] Start: 09-18-[address] [facility] Start: 09-18-2024 End: 09-18-2024 [facility] Start: 09-18-2024 Hospital admission, emergency, from emergency room, medical [facility] Start: 09-18-2024 Verification routine [facility] Start: 09-18-[address] [facility] Start: 09-18-2024 [facility] Start: 09-18-2024 Inhalation therapy procedure [facility] Start: 07-29-2024 [facility] Start: 07-29-2024 End: 07-29-2024 [facility] Start: 06-20-2024 Patient discharge [facility] Start: 06-19-2024 [facility] Start: 06-19-2024 [facility] Start: 06-18-2024 Assessment of risk o f venous thromboembolism [facility] Start: 06-18-2024 Care regimes management [facility] Start: 06-18-2024 Catheterization of vein [facility] Start: 06-18-2024 Continuous pulse oximetry [facility] Start: 06-18-2024 Elevation of head of bed [facility] Start: 06-18-2024 Insertion of cathete r into peripheral vein [facility] Start: 06-18-2024 Measuring intake and output [facility] Start: 06-18-2024 Notification of physician [facility] Start: 06-18-2024 Oxygen therapy [facility] Start: 06-18-2024 Providing care accor ding to standard [facility] Start: 06-18-2024 Referral to aircraft communicator [facility] Start: 06-18-[address] [facility] Start: 06-18-2024 Tobacco use cessatio n education [facility] Start: 06-18-2024 Vital signs measurements [facility] Start: 06-18-2024 End: 06-18-2024 [facility] Start: 06-18-2024 Following clinical pathway protocol [facility] Start: 06-18-2024 End: 06-18-2024 Admission procedure [facility] Start: 06-18-2024 Dual pressure sponta neous ventilation support [facility] Start: 06-18-2024 Consultation [facility] Start: 06-18-2024 Inhalation therapy procedure [facility] Start: 06-17-2024 End: 06-18-2024 [facility] Start: 06-11-2024 Urine microalbumin profile DTaP,Tdap,Td Vaccine (2 - Td or Tdap) [facility] Start: 05-21-2024 [facility] Start: 05-21-2024 Airborne precautions [facility] Start: 05-09-2024 Echo tthrc r-t 2d w/wom-mode compl spec&colr d TTE W/DOPPLER COMPLETE [facility] Start: 04-20-2024 Patient discharge [facility] Start: 12-06-2023 Covid-19 Vaccine ( season) Covid-19 Vaccine ( season) [facility] Start: 12-06-2023 Influenza vaccination Influenza Vacc ine (#1) [facility] Start: 05-24-2023 Incision & drainage abscess simple/single I&D ABSCESS SIMPLE/SINGLE [facility] Start: 05-24-2023 [facility] Start: 04-25-2023 [facility] Start: 12-05-2022 Influenza vaccination Influenza Vacc ine (#1) [facility] Start: 05-23-2022 Patient referral [facility] Work Phone: Start: 04-21-2022 Patient referral [facility] Work Phone: Start: 04-19-2022 Patient discharge [facility] Start: 04-18-2022 Patient discharge [facility] Start: 04-18-2022 End: 04-18-2022 Provision of activity privileges [facility] Start: 04-18-2022 Scheduling [facility] Start: 04-18-2022 Vascular disease ris k assessment [facility] Start: 04-18-2022 End: 04-18-2022 Notification [facility] physician [facility] Start: 04-18-2022 Patient education [facility] Start: 04-18-2022 Pulse taking [facility] Start: 04-18-2022 End: 04-18-2022 Taking patient vital signs [facility] Start: 04-18-2022 Wound care [facility] Start: 04-18-2022 End: 04-18-2022 [facility] Start: 04-18-2022 Catheterization of vein [facility] Start: 04-18-2022 Medication not administered [facility] Start: 04-18-2022 Notification of physician [facility] Start: 04-18-2022 [facility] Start: 04-18-2022 Following clinical pathway protocol [facility] Start: 04-18-2022 Assessment of risk o f venous thromboembolism [facility] Start: 04-18-2022 Care regimes management [facility] Start: 04-18-2022 Inhalation therapy procedure [facility] Start: 04-18-2022 Insertion of cathete r into peripheral vein [facility] Start: 04-18-2022 Measuring intake and output [facility] Start: 04-18-2022 Oxygen therapy [facility] Start: 04-18-2022 Providing care accor ding to standard [facility] Start: 04-18-2022 Provision of activit y privileges [facility] Start: 04-18-2022 Referral to aircraft communicator [facility] Start: 04-18-2022 Referral to occupati onal therapist [facility] Start: 04-18-[address] [facility] Start: 04-18-2022 Tobacco use cessatio n education [facility] Start: 04-18-2022 [facility] Start: 04-18-2022 Verification routine [facility] Work Phone: Start: 04-18-[address] [facility] Start: 04-18-2022 [facility] Work Phone: Start: 04-06-2022 [facility] Start: 12-05-2021 Influenza vaccination C [facility] Start: 04-06-2021 DEPRESSION ASSESSMENT DEPRESSION ASS ESSMENT [facility] Start: 06-06-2020 PROSTATE CANCER SCRE ENING DISCUSSION PROSTATE CANCER SCREENING DISCUSSION [facility] Start: 06-06-2020 Prostate specific an tigen measurement Prostate Cancer Screening Discussion [facility] Start: 2020 Hepatitis B Vaccine (1 of 3 - Risk 3-dose series) Hepatitis B Vaccine (1 of 3 - Risk 3-dose series) [facility] Start: 2020 RSV Vaccine (1 - 1-d ose 60+ series) RSV Vaccine (1 - 1-dose 60+ series) [facility] Start: 2020 RSV Vaccine (1 - Ris k 60-74 years 1-dose series) RSV Vaccine (1 - Risk 60-74 years 1-dose series) [facility] Start: 06-18-2019 ANNUAL PCP TEAM BRAKE HOLDER MIAN DISEASE VISIT ANNUAL PCP TEAM CHRONIC DISEASE VISIT [facility] Start: 12-23-2017 Adult depression screening assessment DEPRESSION SCREENING [facility] Start: 01-13-2017 3 comp foot exam completed DIABETIC FOOT EXAM [facility] Start: 01-13-2017 Diabetic foot examination Diabetic F oot Exam [facility] Start: 01-13-2017 Hepatitis B surface antibody level LDL CHOLESTEROL [facility] Start: 10-08-2016 PNEUMOCOCCAL (2 - PCV) PNEUMOCOCCAL (2 - PCV) [facility] Start: 10-08-2016 Pneumococcal vaccination [facility] Start: 10-08-2016 Pneumococcal Vaccine : 50+ (2 of 2 - PCV) Pneumococcal Vaccine: 50+ (2 of 2 - PCV) [facility] Start: 04-15-2016 Hemoglobin A1c measurement HbA1C [facility] Start: 04-15-2016 Hemoglobin A1c/Hemoglobin.total in Blood HBA1C [facility] Start: 01-22-2015 Influenza vaccination LUNG CANCER [facility] Start: 01-22-2010 Influenza vaccination LUNG CANCER [facility] Start: 01-22-2010 Screening for malign ant neoplasm of lung Lung Cancer Screening [facility] Start: 01-22-2010 SHINGRIX VACCINE (1 of 2) NOVA GRIX VACCINE (1 of 2) [facility] Start: 01-22-2005 COLOGUARD (FIT-DNA) COLOGUARD (FIT-D NA) [facility] Start: 01-22-2005 Colonoscopy COLONOSCOPY [facility] Start: 01-22-2005 COLORECTAL CANCER SCREENING COLORECTAL CANCER SCREENING [facility] Start: 01-22-[address] COLONOGRAPHY [facility] Start: 01-22-2005 FECAL OCCULT BLOOD FECAL OCCULT BLOO D [facility] Start: 01-22-2005 Screening for malign ant neoplasm of colon [facility] Start: 01-22-2005 SIGMOIDOSCOPY SIGMOIDOSCOPY [facility] Start: 01-22-1979 Urine microalbumin profile DTAP,TDAP,TD (1 - Tdap) [facility] Start: 01-22-1978 ANNUAL PCP TEAM BRAKE HOLDER MIAN DISEASE VISIT ANNUAL PCP TEAM CHRONIC DISEASE VISIT [facility] Start: 01-22-1978 Anxiety Screening Anxiety Screening [facility] Start: 01-22-1978 Depression Screening Depression Scre ening [facility] Start: 01-22-1978 HIV SCREENING HIV SCREENING [facility] Start: 01-22-1978 HIV screening HIV Screening [facility] Start: 01-22-1970 Glaucoma screening Dilated Retinal E xam [facility] Start: 01-22-1970 Hepatitis B screening URINE ALBUMIN:CREATININE RATIO [facility] Start: 01-22-1970 Hepatitis C antibody , confirmatory test DILATED RETINAL EXAM [facility] Start: 01-22-1965 COVID-19 VACCINE (1) COVID-19 VACCIN E (1) [facility] Start: 1960 COVID-19 VACCINE (#1) COVID-19 VACCI NE (#1) [facility] Bilirubin measuremen t, urine [facility] End: 02-05-2023 Ct pelvis w/o contrast material CT PELVIS WO IVCON Radiology Routine Left groin pain 1 Occurrences starting 01/06/2022 until 02/05/2023 [facility] Work Phone: Comment on above: 1 Occurrences starti ng 01/06/2022 until 02/05/2023 Hemoglobin [Presence ] in Urine [facility] Hemoglobin A1c/Hemoglobin.total in Blood [facility] Work Phone: Hemoglobin A1c/Hemoglobin.total in Blood [facility] Lipid 1996 panel - S belinda or Plasma [facility] Measurement of keton es in urine using dipstick [facility] Microscopic urinalysis [facility] Patient Education [facility] Work Phone: Patient referral [facility] Work Phone: pH of Urine [facility] Specific gravity of Urine [facility] Troponin T.cardiac [Mass/volume] in Serum or Plasma by High sensitivity method [facility] Urine blood test [facility] Urine culture [facility] Urine dipstick for glucose [facility] Urine dipstick for leukocyte esterase [facility] Urine dipstick for nitrite [facility] Urine dipstick for protein [facility] Urine examination [facility] Urine microscopy: epithelial cells [facility] Urine Microscopy: wh ite cells [facility] Urobilinogen [Presen ce] in Urine [facility] US Carotid arteries [facility] US Heart limited [facility] [place] [facility] Immunizations Immunization Date Immunization Notes Care Provider Karla garcia 04-25-2023 tetanus toxoid, redu jesse diphtheria toxoid, and acellular pertussis vaccine, adsorbed Dr. 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 Xiang Rogers Work Phone: [facility] Payers Date Payer Category Payer Medicare [id number] 2024 Self-pay [id number] 2023 Private Health Insurance NEVILLE MCCALL [id number] 2023 Unknown NEVILLE WEBER X [id number] 2023-Present [phone] [id number] HMO [id number] 2023 Unknown [id number] 2022 Unknown [id number] 2020 Medicaid [facility] MEDICAID [id number] 2020-Present [phone] [address] [place] [address] Medicaid [id number] 2020 Medicaid [id number] 2014 Unknown [facility] [place] [id number] Unknown [id number] Unknown 0 [id number] Unknown [id number] 2.16.840.1.691874.3.579.2. 462 Unknown [id number] 2.16.840.1.818885.3.579.2. 462 Unknown [id number] 2.16.840.1.726918.3.579.2. 462 Unknown [id number] 2.16.840.1.239389.3.579.2. 462 Unknown [id number] 2.16.840.1.372854.3.579.2. 462 Unknown [id number] 2.16.840.1.696859.3.579.2. 462 Unknown [id number] 2.16.840.1.722355.3.579.2. 462 Unknown [id number] 2.16.840.1.982970.3.579.2. 462 Unknown [id number] 2.16.840.1.638273.3.579.2. 462 Unknown [id number] 2.16.840.1.896590.3.579.2. 462 Unknown [id number] 2.16.840.1.604296.3.579.2. 462 Unknown [id number] 2.16.840.1.739648.3.579.2. 462 Unknown [id number] 2.16.840.1.194065.3.579.2. 462 Unknown [id number] 2.16.840.1.203781.3.579.2. 462 Unknown [id number] 2.16.840.1.124320.3.579.2. 462 Unknown [id number] 2.16.840.1.556206.3.579.2. 462 Unknown [id number] 2.16.840.1.646252.3.579.2. 462 Unknown [id number] 2.16.840.1.556681.3.579.2. 462 Unknown [id number] 2.16.840.1.212827.3.579.2. 462 Unknown [id number] 2.16.840.1.330157.3.579.2. 462 Unknown [id number] 2.16.840.1.109680.3.579.2. 462 Unknown [id number] 2.16.840.1.123640.3.579.2. 462 Unknown [id number] 2.16.840.1.983585.3.579.2. 462 Unknown [id number] 2.16.840.1.708430.3.579.2. 462 Unknown [id number] 2.16.840.1.668580.3.579.2. 462 Unknown [id number] 2.16.840.1.399826.3.579.2. 462 Unknown [id number] 2.16.840.1.427440.3.579.2. 462 Unknown [id number] 2.16.840.1.009947.3.579.2. 462 Unknown [id number] 2.16.840.1.020275.3.579.2. 462 Unknown [id number] 2.16.840.1.969471.3.579.2. 462 Unknown [id number] 2.16.840.1.702817.3.579.2. 462 Unknown [id number] 2.16.840.1.372191.3.579.2. 462 Unknown [id number] 2.16.840.1.060486.3.579.2. 462 Unknown [id number] 2.16.840.1.317318.3.579.2. 462 Unknown [id number] 2.16.840.1.821179.3.579.2. 462 Unknown [id number] 2.16.840.1.060844.3.579.2. 462 Unknown [id number] 2.16.840.1.370297.3.579.2. 462 Unknown [id number] 2.16.840.1.783165.3.579.2. 462 Unknown [id number] 2.16.840.1.477403.3.579.2. 462 Unknown [id number] 2.16.840.1.166847.3.579.2. 462 Unknown [id number] 2.16.840.1.689223.3.579.2. 462 Unknown [id number] 2.16.840.1.739640.3.579.2. 462 Unknown [id number] 2.16.840.1.105796.3.579.2. 462 Unknown [id number] 2.16.840.1.945437.3.579.2. 462 Unknown [id number] 2.16.840.1.276608.3.579.2. 462 Unknown [id number] 2.16.840.1.232218.3.579.2. 462 Unknown [id number] 2.16.840.1.333493.3.579.2. 462 Unknown [id number] 2.16.840.1.194415.3.579.2. 462 Unknown [id number] 2.16.840.1.715320.3.579.2. 462 Unknown [id number] 2.16.840.1.907448.3.579.2. 462 Unknown [id number] 2.16.840.1.533212.3.579.2. 462 Unknown [id number] 2.16.840.1.157718.3.579.2. 462 Unknown [id number] 2.16840.1.214338.3.579.2. 462 Unknown [id number] 2.16.840.1.667630.3.579.2. 462 Unknown [id number] 2.16.840.1.370087.3.579.2. 462 Unknown [id number] 2.16840.1.035932.3.579.2. 462 Unknown [id number] 2.16840.1.063987.3.579.2. 462 Unknown [id number] 2.16840.1.139762.3.579.2. 462 Unknown [id number] 2.16.840.1.146241.3.579.2. 462 Unknown [id number] 2.16840.1.349547.3.579.2. 462 Unknown [id number] 2.16840.1.688715.3.579.2. 462 Unknown [id number] 2.16.840.1.643562.3.579.2. 462 Unknown [id number] 2.16.840.1.919404.3.579.2. 462 Unknown [id number] 2.16.840.1.190528.3.579.2. 462 Unknown [id number] 2.16.840.1.615897.3.579.2. 462 Unknown [id number] 2.16.840.1.095890.3.579.2. 462 Unknown [id number] 2.16.840.1.874699.3.579.2. 462 Unknown [id number] 2.16.840.1.225701.3.579.2. 462 Unknown [id number] 2.16.840.1.015562.3.579.2. 462 Unknown [id number] 2.16.840.1.075515.3.579.2. 462 Unknown [id number] 2.16.840.1.720416.3.579.2. 462 Unknown [id number] 2.16.840.1.659809.3.579.2. 462 Unknown [id number] 2.16.840.1.265394.3.579.2. 462 Unknown [id number] 2.16.840.1.689484.3.579.2. 462 Unknown [id number] 2.16.840.1.356712.3.579.2. 462 Unknown [id number] 2.16.840.1.874194.3.579.2. 462 Unknown [id number] 2.16.840.1.621472.3.579.2. 462 Unknown [id number] 2.16.840.1.596031.3.579.2. 462 Unknown [id number] 2.16.840.1.939839.3.579.2. 462 Unknown [id number] 2.16.840.1.565939.3.579.2. 462 Unknown [id number] 2.16.840.1.537936.3.579.2. 462 Unknown [id number] 2.16.840.1.804181.3.579.2. 462 Unknown [id number] 2.16.840.1.721187.3.579.2. 462 Unknown [id number] 2.16.840.1.680406.3.579.2. 462 Unknown [id number] 2.16.840.1.971948.3.579.2. 462 Unknown [id number] 2.16.840.1.717358.3.579.2. 462 Unknown [id number] 2.16.840.1.403079.3.579.2. 462 Unknown [id number] 2.16.840.1.966679.3.579.2. 462 Unknown [id number] 2.16.840.1.100544.3.579.2. 462 Social History Date Type Detail Facility Start: 01-06-2022 End: 12-31-2023 Tobacco smoking status NHIS Smokes tobacco daily [facility] Work Phone: History of tobacco use Cigarette Smoker C [facility] Start: 07-18-2021 End: 12-31-2023 Alcohol intake Current non-drinker of alcohol (finding) [facility] Start: 1960 Sex Assigned At Not on file [facility] Start: 07-08-2021 End: 02-04-2022 Exposure to SARS-CoV-2 (event) Not sure [facility] Start: 07-18-2021 End: 06-02-2023 Tobacco smoking status COIS Unknown if ever smoked [facility] Start: 04-12-2019 None [facility] Start: 04-12-2019 Spouse/ Signif icant Other [facility] Start: 08-11-2020 Cigarettes [facility] Start: 1960 Sex Assigned At Male W [facility] Start: 01-06-2022 End: 05-02-2022 Cigarettes smoked current (pack per day) - Reported 2 [facility] Start: 01-06-2022 End: 12-31-2023 Tobacco use and exposure Smokeless tobacco non-user [facility] Start: 01-06-2022 Tobacco Comment started at age 14 [facility] Start: 01-28-2022 End: 05-02-2022 Tobacco use panel [facility] Start: 03-07-2012 National Score (1-10 0), lower number is lower risk Not on file [facility] Start: 06-17-2024 End: 10-21-2024 Tobacco smoking status COIS Current Heavy tobacco smoker [facility] Start: 06-23-2024 Sex Male (finding) [facility] Start: 10-23-2024 End: 11-22-2024 Tobacco smoking status COIS Current Light tobacco smoker [facility] (I/We) worried wheth er (my/our) food would run out before (I/we) got money to buy more. Never true [facility] In the past 12 month s, was there a time when you were not able to pay the mortgage or rent on time? No [facility] Medical Equipment Procedure Code Equipment Code Equipment Origin al Text Equipment Identifier Dates [id number], [id number], [id number] Start: 01-21-2016 Comment on above: Test blood [...] 04-02-2021 Pen Needle, Diabetic (Comfort Ez Pen [place]) 31 gauge x 5/16 needle Start: 10-28-2023 Blood Sugar Diagnostic (Freestyle Test) strip Start: 06-10-2019 End: 04-02-2021 Lancets (Freesty le Lancets) [address] [facility] Start: 06-10-2019 End: 04-02-2021 Pen Needle, Diabetic (1st Tier Unifine Pentips Plus) 31 gauge x 3/16 needle Start: 06-01-2019 End: 08-06-2020 Pen Needle, Diabetic (1st Tier Unifine Pentips Plus) 31 gauge x 3/16 needle Start: 08-06-2020 End: 04-02-2021 Goals Date Patient Goal Desired Activity /State Functional Status Date Assessment Result Facility 11-13-2024 Functional status Ambulates [facility] Work Phone: 11-11-2024 Functional status Well [facility] Work Phone: 09-21-2024 Functional status Ambulates;Up a d andree;Bathroom Privilege [facility] Work Phone: 09-19-2024 Functional status None [facility] Work Phone: 06-20-2024 Functional status Chair [facility] Work Phone: 04-19-2022 Functional status Ambulates;Up ad andree [facility] Work Phone: 05-25-2014 Are you deaf, or do you have serious difficulty hearing No 05/25/2014 5:05 PM Eliane Montano LPN No [facility] 05-25-2014 Are you blind, or do you have serious difficulty seeing, even when wearing glasses No 05/25/2014 5:05 PM Eliane Montano LPN No [facility] 05-25-2014 Do you have serious difficulty walking or climbing stairs No 05/25/2014 5:05 PM Eliane Montano LPN No [facility] 05-25-2014 Do you have difficul ty dressing or bathing No 05/25/2014 5:05 PM Eliane Montano LPN No [facility] 05-25-2014 Because of a physica l, mental, or emotional condition, do you have difficulty doing errands alone such as visiting a physician's office or shopping No 05/25/2014 5:05 PM Eliane Montano LPN No [facility] Mental Status Date Assessment Result Facility 11-13-2024 Cognitive function Voice/Name [facility] Work Phone: 10-26-2024 Cognitive function Awake;Alert;A ppropriate;Fol lows Commands [facility] Work Phone: 10-19-2024 Cognitive function Voice/Name [facility] Work Phone: 09-21-2024 Cognitive function [facility]/Name [facility] Work Phone: 09-18-2024 Cognitive function Voice/Name [facility] Work Phone: 07-29-2024 Cognitive function Voice/Name [facility] Work Phone: 06-20-2024 Cognitive function Voice/Name [facility] Work Phone: 04-19-2022 Cognitive function [facility]/Name [facility] Work Phone: 04-18-2022 Cognitive function [facility]/Name [facility] Work Phone: 07-18-2021 Cognitive function Level Of Cons ciousness Awake;Alert;Appropriate [facility] Work Phone: 05-25-2014 Because of a physica l, mental, or emotional condition, do you have serious difficulty concentrating, remembering, or making decisions No 05/25/2014 5:05 PM Eliane Montano LPN No [facility] Clinical Notes 06-11-2018 to 02-15-2025 Telephone Encounter - Itzel Sabillon MD - 12/19/2024 7:47 PM EDTTelephone Encounter - Itzel Sabillon MD - 12/19/2024 7:47 PM EDT Note Date & Type Note Facility 02-15-2025 Note HNO ID: [id number] Author: DANIA GARCIA RN Service: Care Management Author Type: Registered Nurse Type: Care Mgt Initial Assessment Filed: 02/15/2025 16:02 Note Text: CARE MANAGEMENT: ASSESSMENT AND DISCHARGE PLAN SERVICE DATE: February 15, 2025 SERVICE TIME: 3:57 PM PCP: Xiang Rogers DO, DO - Confirmed. Per SNF paperwork Dr Stefan Yusuf has been following at [facility]. Primary Contact: Extended Emergency Contact Information Primary Emergency Contact: Christine Mejia Mobile Relation: Daughter Secondary Emergency Contact: Jaylen Mejia Jr. [place] Relation: Son Preferred language: MONGOLIAN Admission Status: Inpatient Insurance Provider: MEDICARE A AND B Discharge Planning requested by: Per Department Practice Potential Transition Plans Fdc Facility/Intermediate Care Facility Advance Directives Current Advance Directive: Health Care Power of Assistant Clinical Nurse Manager In Chart: Yes Up To Date and Valid: Yes Current Living Arrangements and Support Lives with: Type of Residence: Fdc Facility Does the patient have to climb stairs at home?: No Care Facility Name: [facility] Support: Children How do you manage to accomplish the following: Needs Assistance: Ambulation, Bathe/Shower, Dress, Going to the bathroom Dependent: Meals/Meal Prep, Medication Management, Transportation to appointments/community Current Services/Equipment Current Post-Acute Service(s): DME, Oxygen Current O2 Usage (device, rate, continuous/pulse and hrs per day): 2 LPM, continuous Current DME Type: Walker Current Post-Acute Service(s) Provider: SNF/ECF provides all needed DME Discharge Planning Patient Goal(s): Be able to go home, General wellness, Heal wounds [place] of Choice Explained: [place] of Choice Given: Yes Level of Care Discussed: Fdc Facility (Patient is from [facility] and plans to return.) Are you interested in bedside delivery of your medications? No Discharge Planning Participant(s): Patient Patient/Family Comments: Caregiver Assessment: Caregiver is ready, willing and able to meet the patient's needs as recommended by the inter-professional team: Yes Name of Caregiver: [facility] Transport at Discharge: Transportation Arrangements: To Be Determined Needs Prior to Discharge: Needs Prior to Discharge: To Be Determined Post-Acute Discharge Plan: CM met at bedside with patient, introduced self and role. Pt is 65 y/o, admit Dx cellulitis of left foot. Patient currently resides at [facility]. Referral placed to confirm if he is SNF or ECF. Prior to being at the [facility] he resided alone in a house with a few entry steps. Currently needs assist with ADL's. Using O2 at the facility. Ambulatory with walker. Has a wound to the dorsum of left foot, was at the wound care center and was noted to have increased drainage and odor from the wound and sent patient to ED for evaluation. 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 Currently on O2 2 L/NC. On IV ATB. Vascular, ID and Podiatry consulted. Pt is AANDO X 3. Plan to return to [facility] at d/c Discharge transport TBD. CM instructed patient that CM team will remain available for any dc needs. SIGNATURE: Dania Garcia RN PATIENT NAME: Jaylen Mejia DATE: February 15, 2025 TIME: 3:57 PM [facility] 02-15-2025 Note HNO ID: [id number] Author: FRANTZ SANTACRUZ APRN.TURNER Service: Wound/Ostomy Author Type: Nurse Practitioner Type: Plan of Care Filed: 02/15/2025 10:45 Note Text: WOUND CARE SERVICE CONSULT NOTE SERVICE DATE: 02/15/2025 SERVICE TIME: 1044 Wound Consult (From admission, onward) Start Ordered 02/14/25 1718 Wound Care Consult ONCE Electronically Signed By: Edilson Ahuja MD [ ] 02/14/258 Podiatry services consulted for same wound. Will defer management of wound to Podiatry at this time. Thank you for including me in the care of this patient. Please re-consult our service if further wound care needs arise. SIGNATURE: Frantz Santacruz APRN.MANAGER COSMETIC PATIENT NAME: Jaylen Mejia DATE: February 15, 2025 TIME: 10:44 AM [facility] 02-15-2025 Note HNO ID: [id number] Author: NATHANAEL MCKEON MD Service: Hospital Medicine Author Type: Physician Type: Progress Notes Filed: 02/15/2025 10:01 Note Text: DEPARTMENT OF HOSPITAL MEDICINE PROGRESS NOTE SERVICE DATE: 02/15/2025 SERVICE TIME: 9:58 AM Hospital Medicine/Primary Attending: Nathanael Mckeon MD NIGHT AND WEEKEND COVERAGE: [place] COVERAGE: Days: [phone], please page attending physician. Nights: [phone], please page [place] Hospitalist Night coverage pager [phone]. Subjective INTERVAL HPI: Overnight patient had hypotensive episodes. Discussion with ICU okay to keep patient on floor. Recommended continuing resuscitation and adding midodrine. Continue broad-spectrum IV antibiotics. Podiatry/ID on board. Continue to monitor. Current Facility-Administered Medications Medication Dose Route Frequency cefepime 2 g in D5W 100 mL Vial-Bag (MAXIPIME) 2 g INTRAVENOUS q 8 H vancomycin dosing and monitoring per pharmacy OTHER As Directed NaCl 0.9% iv flush bag 20 mL INTRAVENOUS PRN vancomycin iv piggyback 1 g in D5W 200 mL (VANCOCIN) 0.015 g/kg/dose INTRAVENOUS q 12 HR dextrose 40 % 15 g 15 g ORAL PRN Or glucagon 1 mg injection 1 mg INTRAMUSCULAR PRN Or dextrose 10% iv bolus 12.5 g INTRAVENOUS PRN insulin lispro injection (rapid acting) (ADMElog) SUBCUTANEOUS w MEALS acetaminophen 500-1,000 mg tab(s) (TYLENOL) 500-1,000 mg ORAL q 6 H PRN oxyCODONE IR 5 mg tab(s) (ROXICODONE) 5 mg ORAL q 6 H PRN aspirin 81 mg chewable tab(s) 81 mg ORAL DAILY atorvastatin 40 mg tab(s) (LIPITOR) 40 mg ORAL AT BEDTIME clopidogrel 75 mg tab(s) (PLAVIX) 75 mg ORAL DAILY ezetimibe 10 mg tab(s) (ZETIA) 10 mg ORAL DAILY insulin glargine 14 Units pen (long acting) 14 Units SUBCUTANEOUS AT BEDTIME pantoprazole DR 40 mg tab(s) (PROTONIX) 40 mg ORAL DAILY (6 AM) sodium hypochlorite 0.125 % (DAKIN'S QUARTER STRENGTH) IRRIGATION DAILY midodrine 5 mg tab(s) (PROAMITINE) 5 mg ORAL q 8 H Objective PHYSICAL EXAM: BP 82/48 Pulse 84 Temp (Src) 98.5 (Oral) Resp 20 Ht 5' 11 (1.80m) Wt 169 lb 5 oz (76.8kg) SpO2 99% BMI 23.62 kg/(m2). O2 Therapy: Nasal Cannula, Liters (Numeric Only): 2 Physical Exam Performed Constitutional: In no apparent distress. Vital signs stable Eye: Pupils are equal. Extraocular motions intact ENMT: No visible external trauma. Hearing grossly intact. Neck: No adenopathy, no Jugular Vein Distention Cardiovascular: Regular rate and rhythm. S1 and S2 Respiratory: Reduced breath sounds Gastrointestinal: Soft, without detectable tenderness. No sign of distention. No rebound or guarding, no masses palpated. Bowel sounds present Genitourinary: Bladder soft Musculoskeletal: Left lower extremity wrapped and dressed. Lower extremity edema Integumentary: No rash, no bruising, no lesions Neurologic: Oriented to person, place and time. No focal sensory or strength deficits. Speech normal. Follows commands Psychiatric: Calm, cooperative, appropriate Lines, Drains, and Airways Line Duration Peripheral 02/14/[address] [facility] Long Left Antecubital 20 Gauge <1 day Reviewed lines and needs to be continued: REASONS: Intravenous fluids Intravenous antibiotics Electrolyte replacement DATA: Diagnostic tests reviewed for today's visit: Most recent labs Most recent imaging Most recent EKG CBC, Coags, BMP, Mg, Phos Recent Labs 02/15/25 0614 02/15/25 0010 02/14/25 1520 WBC 8.94 10.13 8.73 HB 11.3* 11.7* 11.8* HCT 35.6* 37.0* 37.5* PLT 250 269 306 NA 135* -- 139 K 4.1 -- 4.8 CHLOR 96* -- 98 CO2 25 -- 29 BUN 27* -- 29* CREAT 1.01 -- 1.10 GLUC 179* -- 183* CA 9.5 -- 9.5 MG -- -- 2.4* Assessment/Plan Problem List Cellulitis of left foot (POA: Yes) Type 2 diabetes mellitus with hyperglycemia, with long-term current use of insulin (HCC) (POA: Yes) Pure hypercholesterolemia (POA: Yes) Umbilical hernia (POA: Yes) Primary hypertension (POA: Yes) Mixed hyperlipidemia (POA: Yes) Peripheral arterial disease (POA: Yes) Chronic obstructive pulmonary disease (HCC) (POA: Yes) Coronary artery disease involving [place] heart without angina pectoris (POA: Yes) 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 (HCC) (POA: Yes) HFrEF (heart failure with reduced ejection fraction) (HCC) (POA: Yes) Lactic acidosis (POA: Yes) Mitral valve insufficiency (POA: Yes) Aortic valve stenosis (POA: Yes) Anemia (POA: Yes) Hypoxia (POA: Yes) Lactate blood increase (POA: Yes) Alkaline phosphatase elevation (POA: Yes) Wound infection (POA: Status not on file) HOSPITAL COURSE: Jaylen Mejia is a 65 year old male who presents with HFrEF, IDT2DM, GERD, HLD, peripheral vascular disease, CAD, tobacco use disorder presents to [facility] ED on 02/14/2025 per instructions of wound clinic due to worsening odor and drainage from dorsum of his L foot. L foot cellulitis Concern for shock Hypox (more content not included)... [facility] 02-15-2025 Note HNO ID: [id number] Author: CELE PORTER DPM Service: ? Author Type: Physician Type: Progress Notes Filed: 02/15/2025 08:31 Note Text: Wound Center Progress Note PATIENT NAME: Jaylen Mejia HISTORY OF PRESENT ILLNESS: Mr. Jaylen Mejia is a 65 year old male with PMH indicated below presents to clinic for follow-up of ulceration left foot. Patient was recently hospitalized due to significant infection and ulceration of the left foot. He underwent debridement and revascularization and was discharged to a nursing facility where he is currently at. Nursing studies been changing wound VAC 3 times per week. Patient states he does have significant pain to the wound and Tylenol is not helping his pain much. Primarily getting around with wheelchair and putting minimal weight on the foot and has been using postoperative shoe as instructed. Since visit last week he states he is noticed worsening pain, redness and malodor to the wound. States that facilities been applying wound VAC several times per week. + Chills and shortness of breath. No other pedal complaints at this time. PERTINENT HISTORY REVIEW: A1C: 8.6% 12/20/24 VASCULAR TESTING: new PVR pending, known PAD IMAGING: Last XR Foot - Impression Only XR FOOT GENERAL 3V AP/LAT/OBL LEFT Exam End: 02/14/2025 4:39 PM (Final result) Impression: IMPRESSION: No radiographic evidence of osteomyelitis. If ongoing clinical concern, consider further evaluation with MRI as it is a much more sensitive study. Telephone Sales Agent: JANNA Transcribe Date/Time: Feb 14 2025 4:41P ... PAST MEDICAL HISTORY Diagnosis Date Arthritis Asthma (HCC) Carotid atherosclerosis Coronary artery disease Diabetes mellitus type 2 in obese GERD (gastroesophageal reflux disease) History of non-ST elevation myocardial infarction (NSTEMI) 06/11/[address] [place] Worker [address] Herrera Valles Hypertension Other emphysema (HCC) Pancreatitis (HCC) Stenosis of right carotid artery Tobacco use disorder PAST SURGICAL HISTORY Procedure Laterality Date CAROTID ENDARTERECTOMY Right 01/06/2014 CORONARY ARTERY BYPASS GRAFT 2006 LEFT HEART CATH,PERCUTANEOUS 06/11/2018 RPR 1ST INGUN HRNA AGE 5 YRS/> REDUCIBLE 01/20/2017 Hernia repair, inguinal left ALLERGIES Allergen Reactions Amoxicillin Angioedema Previously tolerated cefepime x 5 days (12/24/24 - 12/29/24). Lindane Rash Lodine [Etodolac] GI Upset CURRENT OUTPATIENT MEDICATIONS acetaminophen (TYLENOL) 500 mg tabletTake 500 mg by mouth every 6 hours as needed for pain.Disp: Rfl: bisacodyl (DULCOLAX) 10 mg supp10 mg by RECTAL route once daily as needed for constipation.Disp: Rfl: mineral oil (FLEET MINERAL OIL) pynom659 mL by RECTAL route once daily as needed for constipation.Disp: Rfl: insulin lispro (HUMALOG KWIKPEN INSULIN) 100 unit/mLInject subcutaneously three times a day before meals. Per sliding scaleDisp: Rfl: lidocaine HCL 4 % ptmdApply 1 patch to affected area two times a day as needed (For pain).Disp: Rfl: magnesium hydroxide (MOM) 400 mg/5 mL suspensionTake 30 mL by mouth once daily as needed for constipation.Disp: Rfl: multivit,thx,calcium,iron,mins (MULTIVITAMIN AND MINERAL ORAL)Take 1 tablet by mouth once daily.Disp: Rfl: tamsulosin (FLOMAX) 0.4 mgTake 1 capsule by mouth once daily.Disp: 90 capsuleRfl: 0 traZODone (DESYREL) 50 mg tablet0.5 tablets by ORAL/FEEDING TUBE route daily at bedtime.Disp: 15 tabletRfl: 2 torsemide (DEMADEX) 20 mg tabletTake 2 tablets by mouth two times a day.Disp: 360 tabletRfl: 0 thiamine (VITAMIN B1) 100 mg tabletTake 1 tablet by mouth once daily.Disp: Rfl: 0 atorvastatin (LIPITOR) 40 mg tabletTake 1 tablet by mouth daily at bedtime.Disp: 90 tabletRfl: [address] (PROTONIX) 40 mg tabletTake 1 tablet by mouth daily at 6 am.Disp: 30 tabletRfl: 2 insulin glargine 100 unit/mL (3 mL)Inject 10 Units subcutaneously daily at bedtime.Disp: 3 mLRfl: 0 (Patient taking differently: Inject 14 Units subcutaneously daily at bedtime.) metoprolol succinate ER (TOPROL XL) 25 mg 24 hr tabletTake 1 tablet by mouth once daily.Disp: 90 tabletRfl: aspirin 81 mg chewable tabletTake 1 tablet by mouth once daily.Disp: 90 tabletRfl: 3 clopidogrel (PLAVIX) 75 mg tabletTake 1 tablet by mouth once daily.Disp: 90 tabletRfl: 3 dapagliflozin propanediol (FARXIGA) 10 mg tabletTake 10 mg by mouth daily with breakfast.Disp: Rfl: REPATHA SURECLICK 140 mg/mL pen injectorInject 140 mg subcutaneously every 2 weeks.Disp: Rfl: ezetimibe (ZETIA) 10 mg tabletTake 10 mg by mouth once daily.Disp: Rfl: fluticasone-salmeterol (ADVAIR DISKUS) 100-50 mcg/dose inhalerInhale 1 puff as instructed once daily.Disp: Rfl: fluticasone (FLONASE) 50 mcg/actuation nasal sprayUse 2 sprays in each nostril once daily as needed for cold/allergy symptoms.Disp: Rfl: nitroglycerin sublingual (NITROQUICK) 0.4 mg SL tabletDissolve 0.4 mg under the tong (more content not included)... [facility] 02-14-2025 Note HNO ID: [id number] Author: EDILSON AHUJA MD Service: Hospital Medicine Author Type: Physician Type: Plan of Care Filed: 02/14/2025 21:31 Note Text: Updated daughter/POA Christine on clinical status and possibility of ICU transfer if patient worsens. All questions answered to her satisfaction. Edilson Ahuja MD Hospitalist [facility] For communication, preferably Epic Message me with patient attached. For acute concerns feel free to call or page me at [phone]. [facility] 02-14-2025 Note HNO ID: [id number] Author: EDILSON AHUJA MD Service: Hospital Medicine Author Type: Physician Type: Plan of Care Filed: 02/14/2025 18:53 Note Text: Plan of care 02/14/2025 6:41 PM Prior to formal admission, paged by nursing regarding patient having vision changes with low BP. Patient was placed in trendelenburg w/mild improvement. On bedside evaluation, patient has dusky appearance with delayed capillary refill. He also feels SoB and has new oxygen requirement. Patient also has lactate that is not trending in appropriate direction. Given his hx of HFrEF, I am ordering one additional bolus of 500 mL LR. Attempting to contact E-hospitalist to have patient transferred to ICU. I fear that he has very low cardiac reserve to compensate for septic shock and close monitoring in ICU is necessary for adequate care. ADDENDUM 02/14/2025 6:52 PM Spoke to network control operator paraffin plant operator, Dr. Anderson who suggested giving 25 g infusion of albumin. He will speak to staff in ICU about possible admission. Edilson Ahuja MD Hospitalist [facility] For communication, preferably Epic Message me with patient attached. For acute concerns feel free to call or page me at [phone]. [facility] 02-14-2025 Note HNO ID: [id number] Author: ELSY HWANG, VICKI Service: ? Author Type: Registered Nurse Type: Progress Notes Filed: 02/14/2025 14:29 Note Text: Nursing Documentation Pertinent Medical History: Type II DM, Wound Etiology according to patient: States he fell (12/20/24) underneath his kitchen sink after the floor underneath it caved-in. During the fall, he scraped his left foot which resulted in this wound. Was taken to [facility] ED and was admitted for several weeks. 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 Provider seeing patient: Cele Porter DPM __ WOUND ASSESSMENT: Refer to Provider's Wound Assessment Note VASCULAR ASSESSMENT BY PROVIDER: N/A SUZY'S Left: Right: Brachial Pressure: HR: CHF History: Yes Smoking: Past-smoker Education: N/A EDEMA: Right foot: N/A Right calf: N/A Left foot: Unable to assess Left Calf: 4+ MEASUREMENTS: in CM Right Calf: N/A Right Ankle: N/A Left Calf: 34.0 Left Ankle: 22.0 Length: 47.5 WOUND PHOTOGRAPHY: Yes, date taken 02/14/25 DEBRIDEMENT PROCEDURE BY PROVIDER: Anesthetic Used: 2% Lidocaine gel applied per Kaylah Rodriguez RN Wound(s): #1 Other procedure: N/A Specimen collected: N/A WOUND TREATMENT PER MD ORDER: Wounds cleansed by mechanical debridement to allow provider to visualize wound base WOUND # 1 - LOCATION: Left Dorsal Foot - (12/20/24) Post Debridement Measurements: L: 12.9 cm x W: 6.6 cm x D: 1.3 cm - Tendon exposed Cleansed with: Dakins Applied to minda-wound skin: Vaseline Applied to wound bed: Adaptic AND Dakins-moistened gauze Covered and secured with: ABD pad, Kerlix, AND Tape Area of Concern - Bilateral Shins: Moisturized with Vaseline COMPRESSION: N/A DME: Pt in facility SPECIAL NEEDS: Coordination of care - AVS sent to facility via [email or web address] AND Report called to [place] [facility] by Kaylah Rodriguez RN to Cindy RN Emotional support N/A OR set-up N/A Able Bodied Tank[place] N/A Incontinence needs N/A DISCHARGED in stable condition to: [place] [facility] accompanied by [facility] employee (Génesis) - Facility's wound VAC was with pt at discharge from wound center. PLAN/ORDERS: - Return to the [place] [facility] [facility] for a follow-up with parts administrator Dr. Porter after discharge from the hospital. - You may bring the re-usable wound care supplies that you received during your visit with you to your next appointment. That way we can re-use the already opened items, instead of giving you new ones with every appointment that will most likely need to be thrown away before all of it can be used. - Continue aggressive nutritional support to assist in wound healing, focusing heavily on increasing protein intake. Try to get about 100 g of protein per day to promote wound healing. Look into supplementing your meals with protein shakes. Do NOT skip meals! - Please follow-up with your PCP or aircraft communicator about your elevated blood pressure readings. - If you have any questions or concerns that cannot be answered with the following information, please follow the instructions listed above on how to contact the wound center. EDUCATION: The patient/family was instructed how to cleanse the wound(s). Visual demonstration on how to apply the dressing with teach back method. Signs AND symptoms of infection were reviewed: Increased redness, swelling, pain, green/yellow drainage, fever and/or chills would all need to be evaluated by a Physician. Patient received typed home-going wound care instructions and has expressed intent to comply. Education performed regarding lymphedema/edema: Elevation of extremity above the heart for 30 minutes three times daily and as needed Exercise such as writing the ABC's with your toes in the air, walking and/or calf pumps Wearing compression as ordered by provider Diet controlling of sodium as instructed by provider Use of medication to help control edema. ____ UNIVERSAL PROTOCOL / SAFETY CHECKLIST - N/A Current HBOT Status: Active or Complete - see screening below WOUND CENTER HYPERBARIC OXYGEN THERAPY SCREENING 1. Is the patient diabetic? (If No, skip to question 5) Yes 2. Does the patient have a lower extremity wound? Yes 3. Is there exposed/involved tendon or bone? Yes 4. Has the wound been present for 30 days? Yes If Yes to ALL questions above, (more content not included)... [facility] 02-06-2025 Note HNO ID: [id number] Author: RAVEN VALLEJO RN Service: ? Author Type: Registered Nurse Type: Progress Notes Filed: 02/06/2025 15:22 Note Text: Patient presents today for a bladder scan after mc[place]ott removal this morning. Scan performed without difficulty. Residual urine amount is 0 ml. Patient states he has been able to urinate without difficulty since mcdermott was removed. Patient denies any pain/ discomfort. Patient instructed to notify nursing staff at facility where he resides if he has any difficulty urinating. Signals Intelligence Superintendent offered: Aid from nursing facility present during entire vist Raven Vallejo RN [facility] 02-06-2025 Note HNO ID: [id number] Author: JAUNY THOMAS APRN.TURNER Service: ? Author Type: Nurse Practitioner Type: Progress Notes Filed: 02/06/2025 09:30 Note Text: [facility] NEW PATIENT UROLOGY VISIT 02/06/2025 9:30 AM PATIENT NAME: Jaylen Mejia DATE OF : 1960 TODAY'S DATE: 02/06/2025 Chief Complaint: Patient presents with: Urinary Retention History of Present Illness: Mr. Mejia is a 65 year old male who presents to the office regarding urinary retention. Patient admitted to [facility] for lower limb ischemia from 12/20/2024-01/09/2025. Had catheter placed during admission. Patient unsure why catheter was placed but states he was having difficulty urinating during admission. Denies difficulty urinating prior to admission. Here today for catheter removal and trial of void. Currently residing at [facility] [place]+ years Toxic chemical exposure: Denies Bladder cancer history: Denies Denies hematuria, catheter malfunction, fever or chills. He is drinking lots of water. Review of Systems Constitutional: Negative. 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 Herrera Valles Hypertension Other emphysema (HCC) Pancreatitis (HCC) Stenosis of right carotid artery Tobacco use disorder Past Surgical History: PAST SURGICAL HISTORY Procedure Laterality Date CAROTID ENDARTERECTOMY Right 01/06/2014 CORONARY ARTERY BYPASS GRAFT 2006 LEFT HEART CATH,PERCUTANEOUS 06/11/2018 RPR 1ST INGUN HRNA AGE 5 YRS/> REDUCIBLE 01/20/2017 Hernia repair, inguinal left Social History: SOCIAL HISTORY[1] Medications: Prior to Admission medications: Medication traZODone (DESYREL) 50 mg tablet, Sig 0.5 tablets by ORAL/FEEDING TUBE route daily at bedtime., Start Date 01/09/25, End Date 04/09/25, Authorizing Provider Karen Lr DO Medication torsemide (DEMADEX) 20 mg tablet, Sig Take 2 tablets by mouth two times a day., Start Date 01/09/25, End Date 04/09/25, Authorizing Provider Karen Lr DO Medication thiamine (VITAMIN B1) 100 mg tablet, Sig Take 1 tablet by mouth once daily., Start Date 01/09/25, End Date 04/09/25, Authorizing Provider Karen Lr DO Medication atorvastatin (LIPITOR) 40 mg tablet, Sig Take 1 tablet by mouth daily at bedtime., Start Date 01/09/25, End Date 04/09/25, Authorizing Provider Karen Lr, Medication pantoprazole DR (PROTONIX) 40 mg tablet, Sig Take 1 tablet by mouth daily at 6 am., Start Date 01/10/25, End Date 04/10/25, Authorizing Provider Karen Lr, Medication insulin glargine 100 unit/mL (3 mL), Sig Inject 10 Units subcutaneously daily at bedtime., Start Date 01/09/25, Authorizing Provider Karen Lr DO Medication metoprolol succinate ER (TOPROL XL) 25 mg 24 hr tablet, Sig Take 1 tablet by mouth once daily., Start Date 01/09/25, End Date 04/09/25, Authorizing Provider Karen Lr, Medication aspirin 81 mg chewable tablet, Sig Take 1 tablet by mouth once daily., Start Date 01/06/25, Authorizing Provider Carlotta Grady PA-C Medication clopidogrel (PLAVIX) 75 mg tablet, Sig Take 1 tablet by mouth once daily., Start Date 01/06/25, Authorizing Provider Carlotta Grady PA-C Medication dapagliflozin propanediol (FARXIGA) 10 mg tablet, Sig Take 10 mg by mouth daily with breakfast., Start Date 11/18/24, Authorizing Provider Provider, Ccf Medication REPATHA SURECLICK 140 mg/mL pen injector, Sig Inject 140 mg subcutaneously every 2 weeks., Start Date 11/17/24, Authorizing Provider Provider, Ccf Medication ezetimibe (ZETIA) 10 mg tablet, Sig Take 10 mg by mouth once daily., Start Date 11/18/24, Authorizing Provider Provider, Ccf Medication fluticasone-salmeterol (ADVAIR DISKUS) 100-50 mcg/dose inhaler, Sig Inhale 1 puff as instructed once daily., Start Date 12/09/24, Authorizing Provider Provider, Ccf Medication fluticasone (FLONASE) 50 mcg/actuation nasal spray, Sig Use 2 sprays in each nostril once daily as needed for cold/allergy symptoms., Start Date 12/09/24, Authorizing Provider Provider, Ccf Medication nicotine (NICODERM CQ) 21 mg/24 hr, Sig Apply 1 patch as directed every 24 hours., Patient not taking: Reported on 01/30/2025, Authorizing Provider Provider, Ccf Medication nitroglycerin sublingual (NITROQUICK) 0.4 mg SL tablet, Sig Dissolve 0.4 mg under the tongue every 5 minutes as needed., Authorizing Provider Provider, Ccf Medication Lancets lancets, Sig Test blood sugar(s) 2 daily. Dx: E11.65 Insulin: Yes, Start Date 12/17/16, Authorizing Provider Sary Shafer APRN.MANAGER COSMETIC Medication insulin needles, DISPOSABLE, (PEN NEEDLE (more content not included)... [facility] 01-08-2025 Note [facility] 01-07-2025 Note [facility] 01-06-2025 Note [facility] 01-05-2025 Note [facility] 01-04-2025 Note [facility] 01-04-2025 Note HNO ID: [id number] Author: RY GARRETT RN Service: Nursing Author Type: Registered Nurse Type: Nursing Progress Note Filed: 01/04/2025 15:15 Note Text: 1100: Patient off floor for angiogram, [facility] dc'dKaren [facility] 01-04-2025 Note [facility] 01-03-2025 Note [facility] 01-03-2025 Note [facility] 01-02-2025 Note [facility] 01-01-2025 Note [facility] 12-31-2024 Note [facility] 12-31-2024 Note [facility] 12-30-2024 Note [facility] 12-30-2024 Note [facility] 12-30-2024 Note [facility] 12-29-2024 Note [facility] 12-29-2024 Note [facility] 12-29-2024 Note [facility] 12-28-2024 Note [facility] 12-28-2024 Note [facility] 12-27-2024 Note [facility] 12-27-2024 Note [facility] 12-27-2024 Note [facility] 12-26-2024 Note [facility] 12-26-2024 Note [facility] 12-25-2024 Note [facility] 12-25-2024 Note [facility] 12-24-2024 Note [facility] 12-24-2024 Note [facility] 12[facility]24-2024 Note [facility] 12-24-2024 Note [facility] 12-23-2024 Note [facility] 12[facility]23-2024 Note [facility] 12-23-2024 Note [facility] 12-22-2024 Note [facility] 12-21-2024 Note [facility] 12-21-2024 Note [facility] 12-21-2024 Note [facility] 12-20-2024 Note [facility] 12-20-2024 Note [facility] 12-20-2024 Note [facility] 12-19-2024 Telephone encounter Note I was called by transfer center regarding request for admission for Mr. York who is currently admitted in [facility]. Signout received from Dr. Hartley. Patient is a 64-year-old male with past medical history of type 2 diabetes, CAD status post CABG who was admitted to the hospital from shelter home due to worsening left lower extremity drainage and cellulitis, as well as lung infiltrates on chest x-ray. A few weeks ago patient was admitted with a similar complaint, and plan was to obtain an angiogram outpatient but it was never completed. PVR studies were done confirming peripheral artery disease. Upon admission to the hospital he was evaluated by podiatry who recommended transfer to a facility that has vascular surgery access due to concern for left limb ischemia. Case was discussed with Dr. Bailey -vascular surgery, who recommended admission to medicine and consult for vascular surgery. Patient is currently on aspirin and Plavix, he was also given antibiotics. He was accepted for transfer to [facility]. [facility] Work Phone: 12-19-2024 Miscellaneous Notes I was called by transfer center regarding request for admission for Mr. York who is currently admitted in [facility]. Signout received from Dr. Hartley. Patient is a 64-year-old male with past medical history of type 2 diabetes, CAD status post CABG who was admitted to the hospital from shelter home due to worsening left lower extremity drainage and cellulitis, as well as lung infiltrates on chest x-ray. A few weeks ago patient was admitted with a similar complaint, and plan was to obtain an angiogram outpatient but it was never completed. PVR studies were done confirming peripheral artery disease. Upon admission to the hospital he was evaluated by podiatry who recommended transfer to a facility that has vascular surgery access due to concern for left limb ischemia. Case was discussed with Dr. Bailey -vascular surgery, who recommended admission to medicine and consult for vascular surgery. Patient is currently on aspirin and Plavix, he was also given antibiotics. He was accepted for transfer to [facility]. documented in this encounter [facility] 12-19-2024 Note [facility] 12-08-2024 Note [facility] 12-05-2024 Note [facility] 11-22-2024 Radiology Diagnostic study note [facility] 11-22-2024 Radiology Diagnostic study note [facility] 11-13-2024 Hospital Discharge instructions Additional Instructions Date of Discharge: 11/13/24 [facility] Work Phone: 11-13-2024 Note [facility] 11-13-2024 Progress note Note Date/Time November 13, 2024 8:52am [facility] Medical Records Department [address] [place] [address] Progress Note - Hospitalist 11/13/24 0829 MR#: [id number] Acct: [id number] Name: JAYLEN MEJIA Sr. Rep #:[id number] : 1960 64 From: Steve Fields MD PCP: Dr. Xiang Rogers, DO Status:AD M IN Location: [place] [address] Reason for Visit Chief Complaint: Dyspnea, orthopnea, [...] % (Auto) 67.3, Lymph % (Auto) 20.0, [place]% (Auto) 8.9, Eos % (Auto) 3.1, Baso [...] Subcu Lovenox Charges/Coding Visit Charges Inpatient E&M: 83963 Subs Hosp L2 11/13/24 0852 <Electronically signed by Steve Fields MD> Cosigner Signature (if applicable): CC: ~ Signed [facility] Work Phone: 1(324) 994-195808-09-2025 Progress note Author Steve Fields [facility] Note Date/Time November 12, 2024 10: 19am [facility] Medical Records Department [address] [place] [address] Progress Note - Hospitalist 11/12/24717 MR#: [id number] Acct: [id number] Name: JAYLEN MEJIA Sr. Rep #:[id number] : 1960 64 From: Steve Fields MD PCP: Dr. Xiang Rogers, DO Status:AD M IN Location: [place] [address] Reason for Visit Chief Complaint: Dyspnea, orthopnea, [...] % (Auto) 60.3, Lymph % (Auto) 25.4, [place]% (Auto) 9.9, Eos % (Auto) 3.6, Baso [...] 40 Minutes Charges/Coding Visit Charges Inpatient E&M: 22550 Subs Hosp L2 11/12/24 1019 <Electronically signed by Steve Fields MD> Cosigner Signature (if applicable): CC: ~ Signed [facility] Work Phone: 1(352) 291-939208-08-2025 Consult note Author Buck Trevino [facility] Note Date/Time November 11, 2024 6:2 9pm [facility] Medical Records Department [address] [place] [address] Consultation - Cardiology 11/11/24 1821 MR#: [id number] Acct: [id number] Name: JAYLEN MEJIA Sr. Rep #:[id number] : 1960 64 From: Buck Trevino MD PCP: Dr. Xiang Rogers, DO Status:AD M IN [facility] Assessment & Plan Assessment/Plan (1) H/O coronary [...] his current medication. The EKG and the merchandise presentation associate showed normal sinus rhythm. proBNP level was significantly elevated on this admission. Responding well to the current diuretic and diuresis as well. Cardiac plan and recommendations; Will adjust the current medication to guideline directed medical therapy in the form of Entresto, Farxiga, Aldactone his renal function is within normal. On Lasix as needed. Also patient will require social media project manager as he has been at home and has some difficulty with his medication as per his last visit on the cardiology office. Once stable to follow-up with his primary aircraft communicator for continuation of cardiac care to discuss long-term plan possible ICD/BiV pacer. Buck Trevino MD,[facility] vendor management consultant HPI Consult Data Date of Consult: 11/11/24 HPI Narrative Reason for Consultation: Acute on chronic systolic heart failure/HFrEF HPI Narrative: JAYLEN MEJIA, is a 64 M who presents [facility] Medical History (Updated 11/10/24 @ 19:51 by [...] Nicotine dependence Atherosclerosis of coronary artery of [place] heart without angina pectoris Hyperlipidemia Essential (primary) [...] Unkno wn Rx 5/16 (Comfort EZ Pen [place]) evolocumab 140 mg/mL subcutaneous 140 mg subcut [...] (Auto) 70.7 H, Lymph % (Auto) 19.7, [place] % (Auto) 7.6, Eos % (Auto) 1.3, [...] Bicarbonate Actual 23.5, Base Excess 0, O2 [id number], ABG pCO2 31.3 L, ABG pO2 85, Moy Test Positive 11/11/24 05:34: WBC 8.0, RBC 4.42 L, Hgb 13.3, Hct 40.7, MCV 92.1, MCH 30.1, MCHC 32.7, Plt Count 332, MPV 9.4, Immature Gran % (Auto) 0.300, Neut % (Auto) 70.7 H, Lymph % (Auto) 19.7, [place] % (Auto) 7.6, Eos % (Auto) 1.3, [...] right. Increased from prior exam. Reading Location: [id number] 11/11/24 1823 <Electronically signed by Buck Trevino MD> Cosigner Signature (if applicable): CC: Dr. Xiang Rogers, DO~ Signed [facility] Work Phone: 1(960) 758-175008-08-2025 Progress note Author Steve Bishopgaurav [facility] Note Date/Time November 11, 2024 9:1 6am [facility] Medical Records Department [address] [place] [address] Progress Note - Hospitalist 11/11/24 0741 MR#: [id number] Acct: [id number] Name: JAYLEN MEJIA Hannah Sr. Rep #:[id number] : 1960 64 From: Steve Fields MD PCP: Dr. Xiang Rogers, Status:AD M IN Location: [facility] [id number]- 1 Reason for Visit Chief Complaint: Dyspnea, [...] Std Deviation 48.4 H, RDW Coeff of Amycol 14.2, Plt Count 336, MPV 9.3, Immature Gran % (Auto) 0.300, Neut % (Auto) 69.7, Lymph % (Auto) 20.2, [place]% (Auto) 8.0, Eos % (Auto) 1.5, Baso [...] (Auto) 70.7 H, Lymph % (Auto) 19.7, [place] % (Auto) 7.6, Eos % (Auto) 1.3, [...] right. Increased from prior exam. Reading Location: [facility] Physical Exam Narrative GENERAL: cooperative HEENT: Atraumatic; [...] documentation, 50Minutes Charges/Coding Visit Charges Inpatient E&M: 47060 Subs Hosp L3 11/11/24 0916 <Electronically signed by Steve Fields MD> Cosigner Signature (if applicable): CC: ~ Signed [facility] Work Phone: 1(948) 102-792008-07-2025 History and physical note Author Corazon Diaz [facility] Note Date/Time November 10, 2024 7:5 6pm [facility] Medical Records Department [address] [place] [address] H&P Exam - Hospitalist 11/10/24 193 MR#: [id number] Acct: [id number] Name: JAYLEN MEJIA Sr. Rep #:[id number] [...] x 4, Tobacco use whopresents to the [facility] ED on 11/10/2024 with history of [...] Nicotine dependence Atherosclerosis of coronary artery of [place] heart without angina pectoris Hyperlipidemia Essential (primary) [...] Unkno wn Rx 5/16 (Comfort EZ Pen [place]) evolocumab 140 mg/mL subcutaneous 140 mg subcut [...] % (Auto) 69.7, Lymph % (Auto) 20.2, [place]% (Auto) 8.0, Eos % (Auto) 1.5, Baso [...] right. Increased from prior exam. Reading Location: [id number] Assessment & Plan Assessment/Plan (1) Acute HFrEF (heart failure with reduced ejection fraction): PLAN: Plan The patient is a 64 y/o M w/ PMHx: Hx CVA w/ mild facial droop, CKD stage II perGFR trending, HFrEF, GERD, Anxiety and Depression, HTN, HLD, Diabetes mellitus type II, COPD/Asthma, Carotid disease s/p CEA, CAD s/p CABG x 4, Tobacco use whopresents to the [facility] ED on 11/10/2024 with history of [...] 16 minutes. Charges/Coding Visit Charges Inpatient E&M: 67222 Init Hosp L3 Procedures Hospitalists Procedures: 60209 Advncd Care Plan 30 Min 11/10/241955 <Electronically signed by Corazon Diaz MD> Cosigner Signature (if applicable): CC: Dr. Corazon Diaz MD; Dr. Xiang Rogers, DO~ Signed [facility] Work Phone: 1(796) 355-332008-07-2025 Discharge summary Author Bishop Monique [facility] Note Date/Time November 10, 2024 7:2 6pm [facility] Medical Records Department [address] [place] [address] Emergency Department Summary 11/10/24 MR#: [id number] Acct: [id number] Name: JAYLEN MEJIA . Rep #:[id number] : 1960 64 From: Bishop whalen DO PCP: Dr. Xiang Rogers, Status:RE G ER Location: ED HPI History [...] record. Patient was just recently admitted to [facility] for shortness of breath and CHF [...] intact Psych: Cooperative, appropriate mood and affect [facility] Medical History Cardiac LV ejection fraction 30-35% [...] Nicotine dependence Atherosclerosis of coronary artery of [place] heart without angina pectoris Hyperlipidemia Essential (primary) hypertension Home Medications ?Medication ?Instructions ?Recorded ?Last Taken ?Type blood sugar diagnostic (FreeStyle #50 ea 04/02/21 Unkn own Rx Test strips) blood-glucose meter (FreeStyle #1 ea 12/28/21 Unknown Rx System Kit) lancets 28 gauge (FreeStyle #50 ea 04/02/21 Unknown Rx Lancets) pen needle, diabetic 31 gauge x #100 ea 04/02/21 Unkno wn Rx 3/16 (1st Tier Unifine Pentips Plus) Handicap placard #1 ea 07/22/23 Unknown Rx pen needle, diabetic 31 gauge x #100 ea 10/28/23 Unkno wn Rx 516 (Comfort EZ Pen [place]) evolocumab 140 mg/mL subcutaneous 140 mg subcut [...] record. Patient was just recently admitted to [facility] for shortness of breath and CHF [...] % (Auto) 69.7 Lymph % (Auto) 20.2 [place] % (Auto) 8.0 Eos % (Auto) 1.5 [...] right. Increased from prior exam. Reading Location: [id number] Discharge Plan Triage Chief Complaint: Shortness of Breath ED Provider: Bishop Monique Dx/Rx/DC Orders Prescriptions: No Action (DME) Handicap placard See Rx Instructions .Route .MEDSUPPLY Qty: 1 0RF Rx Instructions: Due to COPD, unable to walk 50 yards without assistance, duration 5 years. (DME) pen needle, diabetic [Comfort EZ Pen [place]] 31 gauge x 5/16 needle See Rx [...] DO [Primary Care Provider] - Print Language: Belizean What to do if you have Problems For any increased pain, shortness of breath, bleeding, nausea or vomiting, chestpain, or any unexpected problems, contact your Primary Care Provider. Call [facility] ([phone]) or report to the closest Emergency Room. Call 911 if necessary. 11/10/241925 <Electronically signed by Bishop Monique DO> Cosigner Signature (if applicable): CC: Dr. Xiang Rogers, DO ~ Signed [facility] Work Phone: 1(189) 793-976608-07-2025 Radiology Diagnostic study [facility]08-07-2025 Discharge summary Author Bishop Monique [facility] Note Date/Time November 10, 2024 7:2 6pm [facility] Medical Records Department [address] [place] [address] Emergency Department Summary 11/10/24 MR#: [id number] Acct: [id number] Name: JAYLEN MEJIA Sr. Rep #:[id number] : 1960 64 From: [...] record. Patient was just recently admitted to [facility] for shortness of breath and CHF [...] intact Psych: Cooperative, appropriate mood and affect [facility] History Cardiac LV ejection fraction 30-35% [...] Nicotine dependence Atherosclerosis of coronary artery of [place] heart without angina pectoris Hyperlipidemia Essential (primary) [...] Unkno wn Rx 08/19 (Comfort EZ Pen [place]) evolocumab 140 mg/mL subcutaneous 140 mg subcut Q2W ch olesterol #6 mL 05/09/24 09/12/24 Rx pen injector (Wolf Daughertyick) insulin glargine 100 unit/mL (3 20 unit [...] record. Patient was just recently admitted to [facility] for shortness of breath and CHF [...] % (Auto) 69.7 Lymph % (Auto) 20.2 [place] % (Auto) 8.0 Eos % (Auto) 1.5 [...] right. Increased from prior exam. Reading Location: [id number] Discharge Plan Triage Chief Complaint: Shortness of Breath ED Provider: Bishop Monique Dx/Rx/DC Orders Prescriptions: No Action (DME) Handicap brandenard See Rx Instructions .Route .MEDSUPPLY Qty: 1 0RF Rx Instructions: Due to COPD, unable to walk 50 yards without assistance, duration 5 years. (DME) pen needle, diabetic [Comfort EZ Pen [place]] 31 gauge x 5/16 needle See Rx [...] DO [Primary Care Provider] - Print Language: [place]an What to do if you have Problems For any increased pain, shortness of breath, bleeding, nausea or vomiting, chestpain, or any unexpected problems, contact your Primary Care Provider. Call [facility] ([phone]) or report to the closest Emergency Room. Call 911 if necessary. 11/10/241925 <Electronically signed by Bishop Monique DO> Cosigner Signature (if applicable): CC: Dr. Xiang Rogers DO ~ Signed [facility] Work Phone: 1(937) 833-408207-24-2025 Radiology Diagnostic study [facility]07-20-2025 Discharge summary Author Devin Curry [facility] Note Date/Time October 23, 2024 8:44 pm [facility] Medical Records Department [address] [place] [address] Emergency Department Summary 10/23/24 MR#: [id number] Acct: [id number] Name: JAYLEN MEJIA Sr. Rep #:[id number] : 1960 64 From: Devin Curry MD PCP: Dr. Xiang Rogers DO Status:RE G ER Location: ED HPI History of Present Illness Chief Complaint: Cellulitis Informant: patient Onset/Context/Timing Onset: Days Context: Gradual Onset Timing: Continuous Current Severity: Mild Maximum Severity: Mild Narrative Narrative: 64-year-old male history of insulin-dependent diabetes, hypertension, ME, COPD, CHF. Recent admission last several weeks for CHF. States has had swelling in his lower extremities but now the red, warm and painful. He said he had breaking of pustules and pus on his legs. He denies any fever or chills. Denies any chest pain or shortness of breath. Prior similar symptoms: No Recent Illness/Hospitalization: Yes [facility] Medical History GERD (gastroesophageal reflux disease) Anxiety [...] Nicotine dependence Atherosclerosis of coronary artery of [place] heart without angina pectoris Hyperlipidemia Essential (primary) [...] Unkno wn Rx 5/16 (Comfort EZ Pen [place]) evolocumab 140 mg/mL subcutaneous 140 mg subcut [...] % (Auto) 68.5 Lymph % (Auto) 21.6 [place] % (Auto) 6.1 Eos % (Auto) 3.4 [...] (DME) pen needle, diabetic [Comfort EZ Pen [place]] 31 gauge x 5/16 needle See Rx [...] week. Return if feeling worse. Print Language: [place]an Disposition Disposition: Home, Self Care What to do if you have Problems For any increased pain, shortness of breath, bleeding, nausea or vomiting, chestpain, or any unexpected problems, contact your Primary Care Provider. Call [facility] ([phone]) or report to the closest Emergency Room. Call 911 if necessary. 10/23/242043 <Electronically signed by Devin Curry MD> Cosigner Signature (if applicable): CC: Dr. Xiang Rogers, DO ~ Signed [facility] Work Phone: 1(590) 683-508307-20-2025 Hospital Discharge instructionsAdditional Instructions The antibiotic clindamycin [...] later this week. Return if feeling worse.[facility] Work Phone: 1(806) 511-288707-16-2025 Radiology Diagnostic study [facility]07-16-2025 Discharge summary Author Valentín Miller [facility] Note Date/Time October 19, 2024 11:2 1pm [facility] Medical Records Department [address] [place] [address] Emergency Department Summary 10/19/24 MR#: [id number] Acct: [id number] Name: JAYLEN MEJIA Sr. Rep #:[id number] : 1960 64 From: Valentín Saravia PCP: Dr. Xiang Rogers, DO Status:RE G ER Location: ED HPI History of Present Illness Chief Complaint: Chest Pain [facility] Medical History GERD (gastroesophageal reflux disease) [...] Nicotine dependence Atherosclerosis of coronary artery of [place] heart without angina pectoris Hyperlipidemia Essential (primary) [...] Unkno wn Rx 5/16 (Comfort EZ Pen [place]) evolocumab 140 mg/mL subcutaneous 140 mg subcut [...] anterior hypokinesis Factors affecting care: As per [facility] Social determinants of health: smoker History obtained from others: none Consults: none [facility] Narrative: The patient was initially tachycardic [...] breath. The patient ruled out by [facility] high-sensitivity troponin protocol for ACS. It [...] Discharge home This note was generated with [employer]owed dictation software. It may contain incorrectwords, spelling, and punctuation that were not noted in review of the chart prior to signing. Lab Data Labs: Laboratory Results - last 24 hr 10/19/24 10/19/24 10/19/24 18:41 20:30 22:35 WBC 6.7 RBC 4.39 L Hgb 13.7 Hct 40.7 MCV 92.7 MCH 31.2 MCHC 33.7 RDW Std Deviation 43.1 RDW Coeff of Mayclo 12.6 Plt Count 241 MPV 10.0 Immature Gran % (Auto) 0.100 Neut % (Auto) 65.7 Lymph % (Auto) 24.7 [place] % (Auto) 6.1 Eos % (Auto) 3.1 [...] evidence of acute cardiopulmonary disease. Reading Location: [facility] Discharge Plan Triage Chief Complaint: Chest Pain [...] (DME) pen needle, diabetic [Comfort EZ Pen [place]] 31 gauge x 5/16 needle See Rx [...] for further outpatient evaluationand management. Print Language: [place]an Disposition Disposition: Home, Self Care What to do if you have Problems For any increased pain, shortness of breath, bleeding, nausea or vomiting, chestpain, or any unexpected problems, contact your Primary Care Provider. Call [facility] ([phone]) or report to the closest Emergency Room. Call 911 if necessary. 10/19/24 2321 <Electronically signed by Valentín Miller DO> Cosigner Signature (if applicable): CC: Dr. Xiang Rogers DO ~ Signed [facility] Work Phone: 1(917) 320-648206-18-2025 Discharge summary Author Donna Hartley [facility] Note Date/Time September 21, 2024 4:22 pm [facility] Medical Records Department [address] [place] [address] Instructions for Home/Discharge Instructions 09/21/24 1537 MR#: [id number] Acct: [id number] Name: JAYLEN MEJIA Sr. Rep #:[id number] : 1960 64 From: Donna Hartley MD PCP: Dr. Xiang Rogers DO Status:AD [...] breath and chest tightness Attending Provider: Donna [place] Primary Care Provider: Xiang Rogers Consulting Providers: [...] you eat out, ask that the chef instructor not add any salt to your dish. Don't eat fried or greasy foods. Be careful of bottled beverages. They can contain a lot of salt -Call 911 right away if you have: -Severe shortness of breath, such that you can't catch your breath even while resting -Severe chest pain that does not resolve with rest or nitroglycerin -[place], foamy mucus with cough and shortness [...] (DME) pen needle, diabetic [Comfort EZ Pen [place]] 31 gauge x 5/16 needle See Rx [...] Qty: 100 1RF Rx Instructions: use with lanmalcolm Sosaa SureClick 140 mg/mL pen injector 140 mg [...] Care Provider] - Within 1 Week Magaly Abdi, PA [Med Staff - [facility] Practice Prof] - Within 2 Weeks Disposition Disposition (needs filled in before D/C Order can be placed): Home, Self Care 09/21/241621<Electronically signed by Donna Hartley MD>Donna Hartley MD CC: Dr. Clinton Soares, DO; Dr. Xiang Rogers DO; Dr. Seth Carrington DO ~ Signed [facility] Work Phone: 1(833) 624-819306-18-2025 [facility]06-17-2025 Progress note Author [facility] Note Date/Time September 20, 2024 7:12 pm [facility] Medical Records Department [address] [place] [address] Progress Note - Hospitalist 09/20/241909 MR#: [id number] Acct: [id number] Name: ROBERTOJAYLENCONNIE Young Sr. Rep #:[id number] : 1960 64 From: Seth Carrington DO PCP: Dr. Xiang Rogers DO Status:AD IN Location: [place] [address] Hospitalist Note Additional note: Per my review [...] 20 mg daily, Zetia 10 mg daily, Qwbjyn78 mg daily. Patient is not taking the following medications: Spironolactone 25 mg daily, Lasix 40 mg twice daily, atorvastatin 80 mg daily, metformin 1000 mg twice daily, Pletal 50 mg daily. 09/20/241911 <Electronically signed by Seth Carrington DO> Cosigner Signature (if applicable): CC: ~ Signed [facility] Work Phone: 1(322) 129-320706-17-2025 Progress note Author [facility] Note Date/Time September 20, 2024 6:38 pm [facility] Medical Records Department [address] [place] [address] Progress Note - Hospitalist 09/19/24 190 MR#: [id number] Acct: [id number] Name: JAYLEN MEJIA Sr. Rep #:[id number] : 1960 64 From: Seth Carrington DO PCP: Dr. Xiang Rogers, DO Status:AD M IN Location: [place] [id number] Reason for Visit Reason for Visit: [...] fraction is 35 %. Normal LV size. [place] : Akinetic. Mid-Anterior : Severely Hypokinetic. Compared [...] 50 minutes Charges/Coding Visit Charges Inpatient E&M: 37167 Subs Hosp L3 09/20/248 <Electronically signed by Seth Carrington DO> Cosigner Signature (if applicable): CC: ~ Signed [facility] Work Phone: 1(214) 256-273506-16-2025 Discharge summary Author Saúl Aguilar [facility] Note Date/Time September 18, 2024 10:3 5pm [facility] Medical Records Department [address] [place] [address] Emergency Department Summary 09/18/24 MR#: [id number] Acct: [id number] Name: JAYLEN MEJIA Hannah Sr. Rep #:[id number] : 1960 64 From: Saúl Saravia PCP: Dr. Xiang Rogers, DO Status:AD M IN Location: [address] History of Present Illness Chief Complaint: [...] Nicotine dependence Atherosclerosis of coronary artery of [place] heart without angina pectoris Hyperlipidemia Essential (primary) [...] Unkno wn Rx 5/16 (Comfort EZ Pen [place]) evolocumab 140 mg/mL subcutaneous 140 mg subcut [...] % (Auto) 61.9 Lymph % (Auto) 27.0 [place] % (Auto) 6.7 Eos % (Auto) 3.7 [...] 10:26 IMPRESSION: No Acute Findings. Reading Location: [facility] Portable 1 view chest x-ray [...] interval, and QTc intervals were all normal. [place] was normal. There are nonspecific ST-T wave [...] (DME) pen needle, diabetic [Comfort EZ Pen [place]] 31 gauge x 5/16 needle See Rx [...] DO [Primary Care Provider] - Print Language: Belizean Disposition Disposition: Acute Care Hospital [facility] What to do if you have Problems For any increased pain, shortness of breath, bleeding, nausea or vomiting, chestpain, or any unexpected problems, contact your Primary Care Provider. Call [facility] ([phone]) or report to the closest Emergency Room. Call 911 if necessary. 09/18/242234 <Electronically signed by Saúl Aguilar DO> Cosigner Signature (if applicable): CC: Dr. Xiang Rogers DO ~ Signed [facility] Work Phone: 1(304) 416-363606-15-2025 History and physical note Author Clinton Soares [facility] Note Date/Time September 18, 2024 2:16 pm [facility] Medical Records Department [address] [place] [address] H&P Exam - Hospitalist 09/18/24 1339 MR#: [id number] Acct: [id number] Name: NORA MEJIACONNIE Young Sr. Rep #:[id number] : 1960 64 From: Clinton khan DO PCP: Dr. Xiang Rogers DO Status:AD M IN Location: [facility] [id number]- [id number] HPI - General General Date of Admission: 09/18/24 Date of Service: 09/18/24 Chief Complaint: Shortness of breath and chest discomfort HPI Narrative JAYLEN MEJIA, is a 64 M who presented to [facility] ED on 09/18/2024 with chest pain and volume overload. [facility]. Has [facility] of [facility]G [...] Will be admitted for further management. [facility] Medical History GERD (gastroesophageal reflux disease) Anxiety [...] Nicotine dependence Atherosclerosis of coronary artery of [place] heart without angina pectoris Hyperlipidemia Essential (primary) [...] Unkno wn Rx 08/19 (Comfort EZ Pen [place]) evolocumab 140 mg/mL subcutaneous 140 mg subcut [...] % (Auto) 61.9, Lymph % (Auto) 27.0, [place]% (Auto) 6.7, Eos % (Auto) 3.7, Baso [...] 10:26 IMPRESSION: No Acute Findings. Reading Location: [id number] Assessment & Plan Assessment/Plan (1) Acute on chronic HFrEF (heart failure with reduced ejection fraction): PLAN: Plan Patient is a 64-year-old male who presented to [facility] ED on 09/18/2024 with shortness of [...] with A1c values consistently above 10% since [id number]. Repeat A1c ordered. Glucose 184 on admit. [...] 75 minutes. Charges/Coding Visit Charges Inpatient E&M: 26076 Init Hosp L3 09/18/24 1416 <Electronically signed by Clinton Soares DO> Cosigner Signature (if applicable): CC: Dr. Clinton Soares, ; Dr. Xiang Rogers DO~ Signed [facility] Work Phone: 1(955) 996-330406-15-2025 Radiology Diagnostic study [facility]04-29-2025 Evaluation note* Diagnosis Onset Date Resolution [...] surgery 2007 resolved November 10, 2024 7:31pm [facility] Work Phone: 1([phone]) 802-267604-29-2025 Evaluation note* Diagnosis Onset Date Resolution Status [...] 04, 2024 1:36pm Lymphorrhea acute November 10, 2 025 10:05am COPD (chronic obstructive pulmonary disease) with [...] 10, 2024 7:31pm Carotid artery disease acute 2024 9:43am Lower extremity edema acute Nov 9:43am PAD (peripheral artery disease) acut e November 16, 2024 9:43am [facility] Work Phone: 1(143) 529-293404-10-2025 Evaluation note* Diagnosis Onset Date Resolution Status [...] 2024 1:39pm Aortic valve stenosis acute Tima e 2024 9:55am LV dysfunction acute September 27, [...] ejection fraction) chronic November 10, 2024 10:05am [facility] Work Phone: 1([phone]) 289-983804-10-2025 Evaluation note* Diagnosis Onset Date Resolution Status [...] ith reduced ejection fraction) acute 2024 7:21pm [facility] Work Phone: 1([phone]) 400-996204-08-2025 Evaluation note* Diagnosis Onset Date Resolution Status [...] 2007 resolved September 27, 2024 9:55am [facility] Work Phone: 1([phone]) 211-918104-08-2025 Evaluation note* Diagnosis Onset Date Resolution Status [...] surgery 2007 resolved November 03, 2024 10:15am [facility] Work Phone: [phone]) [phone] [facility]03-15-2025 Evaluation note* Diagnosis Onset Date [...] fraction) chronic September 18, 2024 1:39pm [facility] Work Phone: 1([phone]) 188-645003-15-2025 Evaluation note* Diagnosis Onset Date Resolution Status [...] surgery 2007 resolved September 27, 2024 9:55am [place] [facility] Work Phone: 1([phone]) 826-199103-12-2025 [facility]02-11-2025 Evaluation note* Diagnosis Onset Date [...] dependence chronic August 02, 2024 11:21am [facility] Work Phone: 1([phone]) 291-501911-20-2024 Evaluation note* Diagnosis Onset Date Resolution Status Admit Date Fissure in skin of right foot acute February 24, 2024 11:07am PAD (peripheral artery disease) acut e February 24, 2024 11:07am Essential (primary) hypertension chr onic February 24, 2024 12:58pm Insulin dependent diabetes mellitus chronic February 23 12:58pm Nicotine dependence chronic Novem 2023 12:58pm [...] artery bypass surgery 2007 resolved April 01 9:49am Atherosclerosis of right low er extremity [...] extremity with ulceration acute 2024 12:40pm [facility] Work Phone: [phone]) 294-233009-26-2024 History of Present illness Narrative* Gab Culver, BROOKE.MANAGER COSMETIC - 12/31/2023 9:33 AM EDT Subjective HPI [...] non-ST elevation myocardial infarction (NSTEMI) 06/11/[address] [place] Worker [address]. Herrera Valles Hypertension Other emphysema (HCC) [...] of care. This note was generated using Bestowed software. It may contain errors in wording, punctuation, or spelling. Gab Culver APRN.TURNER documented [facility]02-[facility]-2023 Hospital Discharge instructions Additional Instructions Your [...] please return to the ER for repeat evaluationW[facility] Work Phone: [phone]) 643-495211-01-2022 History of Present illness Narrative* Yamilka Parekh [...] non-ST elevation myocardial infarction (NSTEMI) 06/11/2018 Hyperlipidemia [place] Worker Dr. Herrera Valles Hypertension Other emphysema (HCC) [...] Straightforward Yamilka Parekh MD documented in this encounterDunlap [facility]10-25-2022 History of Present illness Narrative* Yamilka [...] non-ST elevation myocardial infarction (NSTEMI) 06/11/2018 Hyperlipidemia [place] Worker Dr. Herrera Valles Hypertension Other emphysema (HCC) [...] documentation. Yamilka Parekh MD documented in this encounterDunlap [facility] Hospital10-25-2022 History of Present illness Narrative* Hazel [...] 28, 2022 3:01 PM documented in this encounterDunlap [facility] Hospital10-03-2022 History of Present illness Narrative* Yamilka [...] non-ST elevation myocardial infarction (NSTEMI) 06/11/2018 Hyperlipidemia [place] Worker Dr. Herrera Valles Hypertension Other emphysema (HCC) [...] of any pertinent laboratory studies/radiological imaging/medical records, dpcm-fh-mooopavegnt care, obtaining oral medical history from the patient in this encounter, performing a medically appropriate examination, counseling and educating the patient/family/caregiver, and ordering and/or scheduling of medications/tests/procedures, and completing appropriate medical documentation. Yamilka Parekh MD documented in this encounterDunlap [facility] Hospital10-03-2022 Nurse Note* Allison Haines RN - [...] Unknown Allison Haines RN documented in this encounterDunlap [facility] Hospital04-14-2022 Instructions* Patient Instructions* Gab Culver APRN.MANAGER COSMETIC - 07/18/2021 1:15 PM EDT RESPIRATORY INFECTION [...] spread by coughs, sneezes, anddirect contact, especially [id number]. A respiratory tract infection usually clears up [...] 102 F (39 C). documented in this encounterDunlap [facility] Hospital04-14-2022 History of Present illness Narrative* Gab Culver APRN.MANAGER COSMETIC - 07/18/2021 1:02 PM EDT Subjective HPI [...] mellitus type 2 in obese (HCC) Hyperlipidemia [place] Worker Dr. Herrera Valles Hypertension Pancreatitis Tobacco use [...] of care. This note was generated using Bestowed software. It may contain errors in wording,punctuation, or spelling. Gab Culver APRN.TURNER documented in this encounterDunlap [facility] Hospital03-08-2019 Evaluation note* Diagnosis Onset Date Resolution [...] Insulin dependent diabetes mellitus chronic Nicotine dependence [facility] Work Phone: Discharge summary Author Steve Fields [facility] Note Date/Time November 13, 2024 1: [address] [place] [address] Health System Medical Records Department [address] [place] [address] Discharge Summary 11/13/24 1328 MR#: [id number] Acct: [id number] Name: JAYLEN MEJIA Sr. Rep #:[id number] : 1960 64 From: Steve Fields MD PCP: Dr. Xiang Rogers DO Status:AD IN Location: [facility] [id number]- 1 Providers Date of Admission: 11/10/24 Date of Discharge: 11/13/24 Primary Care Physician: Dr. Xiang Rogers DO Consultations 11/10/24 20:45 Consult: Onc/Wound/able bodied seaman Routine Comment: Reason for Consult:: BL LE [...] 31 gauge x 5/16 (Comfort EZ Pen [place]) #100 ea 10/28/23 evolocumab 140 mg/mL subcutaneous pen injector (Repatha SureClick) 140 mg [id number] cholesterol #6 mL 05/09/24 insulin glargine 100 [...] % (Auto) 67.3, Lymph % (Auto) 20.0, [place]% (Auto) 8.9, Eos % (Auto) 3.1, Baso [...] Provider: Steve Fields Primary Care Provider: Xiang Rogers Consulting Providers: Corazon Diaz; Buck Trevino Discharge [...] (DME) pen needle, diabetic [Comfort EZ Pen [place]] 31 gauge x 5/16 needle See Rx [...] Health Service Charges/Coding Visit Charges Inpatient E&M: 49743 Disch Hosp >30min 11/13/24 1332 <Electronically signed by Steve Fields MD> Cosigner Signature (if applicable): CC: Dr. Steve Fields MD; Dr. 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 Hyperlipidemia chronic Insulin dependent diabetes mellitus chronic H/O coronary artery bypass surgery 2006 resolved [facility] Work Phone: Evaluation note* Diagnosis Onset Date Resolution Status Essential (primary) hypertension chronic Insulin dependent diabetes mellitus chronic Stenosis of right carotid artery chronic H/O coronary artery bypass surgery 2006 resolved [facility] Work Phone: Evaluation note* Diagnosis Onset Date Resolution Status Essential (primary) hypertension chronic Insulin dependent diabetes mellitus chronic Stenosis of right carotid artery chronic H/O coronary artery bypass surgery 2006 resolved Essential (primary) hypertension chronic Insulin dependent diabetes mellitus chronic Stenosis of right carotid artery chronic [facility] Work Phone: Evaluation note* Diagnosis Left groin pain- Primary Abdominal pain, left lower quadrant documented [facility]* Diagnosis Left groin pain- Primary Abdominal pain, left lower quadrant documented in this encounter [facility] note* Diagnosis Recurrent left inguinal hernia- Primary Inguinal hernia without mention of obstruction or gangrene, recurrent unilateral or unspecified documented in this encounter [facility]* Diagnosis Onset Date Resolution Status Essential (primary) hypertension chronic Insulin dependent diabetes mellitus chronic Stenosis of right carotid artery chronic [facility] Work Phone: Evaluation note* Diagnosis Onset Date Resolution Status Essential (primary) hypertension chronic Insulin dependent diabetes mellitus chronic Stenosis of right carotid artery chronic [id number] acute Nicotine dependence chronic [facility] Work Phone: Evaluation note* Diagnosis Onset Date Resolution Status Essential (primary) hypertension chronic Insulin dependent diabetes mellitus chronic Stenosis of right carotid artery chronic [id number] acute Nicotine dependence chronic Essential (primary) hypertension chronic Hyperlipidemia chronic Insulin dependent diabetes mellitus chronic H/O coronary artery bypass surgery 2007 resolved NSTEMI, initial episode of care acute Insulin dependent diabetes mellitus chronic Nicotine dependence chronic [facility] Work Phone: Evaluation note* Diagnosis Onset Date Resolution Status [id number] acute Nicotine dependence chronic Essential (primary) hypertension [...] coronary artery bypass surgery 2007 resolved [facility] Work Phone: Evaluation note* Diagnosis Left groin pain Abdominal pain, left lower quadrant documented in this encounter [facility]* Diagnosis Onset Date Resolution Status Essential (primary) hypertension chronic Hyperlipidemia chronic Nicotine dependence chronic Stenosis of right carotid artery chronic H/O coronary artery bypass surgery 2006 resolved Non-STEMI (non-ST elevated myocardial infarction) acute 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 Essential (primary) hypertension chronic Insulin dependent diabetes mellitus chronic Nicotine dependence chronic [facility] Work Phone: Evaluation note* Diagnosis Onset Date Resolution Status Non-STEMI (non-ST elevated myocardial infarction) acute 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 Essential (primary) hypertension chronic Insulin dependent diabetes mellitus chronic Nicotine dependence chronic [id number] acute Nicotine dependence chronic [facility] Work Phone: Evaluation note* Diagnosis Sinobronchitis- Primary Unspecified sinusitis (chronic) documented in this encounter [facility] HospitalHistory and physical note Author Clinton oSares [facility] Note Date/Time September 18, 2024 2:16 pm [facility] Medical Records Department [address] [place] [address] H&P Exam - Hospitalist 09/18/24 1339 MR#: [id number] Acct: [id number] Name: JAYLEN MEJIA Sr. Rep #:[id number] : 1960 64 From: Clinton khan DO PCP: Dr. Xiang Rogers, DO Status:AD M IN Location: [facility] [id number]- 1 HPI - General General Date of Admission: 09/18/24 Date of Service: 09/18/24 Chief Complaint: Shortness of breath and chest discomfort HPI Narrative JAYLEN MEJIA, is a 64 M who presented to [facility] ED on 09/18/2024 with chest pain and volume overload. [facility] Has history of CABG [...] Will be admitted for further management. [facility] Medical History GERD (gastroesophageal reflux disease) Anxiety [...] Nicotine dependence Atherosclerosis of coronary artery of [place] heart without angina pectoris Hyperlipidemia Essential (primary) [...] Unkno wn Rx 08/19 (Comfort EZ Pen [place]) evolocumab 140 mg/mL subcutaneous 140 mg subcut [...] % (Auto) 61.9, Lymph % (Auto) 27.0, [place]% (Auto) 6.7, Eos % (Auto) 3.7, Baso [...] 10:26 IMPRESSION: No Acute Findings. Reading Location: [id number] Assessment & Plan Assessment/Plan (1) Acute on chronic HFrEF (heart failure with reduced ejection fraction): PLAN: Plan Patient is a 64-year-old male who presented to [facility] ED on 09/18/2024 with shortness of [...] with A1c values consistently above 10% since [id number]. Repeat A1c ordered. Glucose 184 on admit. [...] 75 minutes. Charges/Coding Visit Charges Inpatient E&M: 65229 Init Hosp L3 09/18/24 4498 <Electronically signed by Clinton Soares DO> Cosigner Signature (if applicable): CC: Dr. Clinton Soares, ; Dr. Xiang Rogers DO~ Signed [facility] Work Phone: History and physical note Author Corazon Diaz [facility] Note Date/Time November 10, 2024 7:5 6pm [facility] Medical Records Department [address] [place] [address] H&P Exam - Hospitalist 11/10/241929 MR#: [id number] Acct: [id number] Name: JAYLEN MEJIA Sr. Rep #:[id number] [...] x 4, Tobacco use whopresents to the [facility] ED on 11/10/2024 with history of [...] Nicotine dependence Atherosclerosis of coronary artery of [place] heart without angina pectoris Hyperlipidemia Essential (primary) [...] Unkno wn Rx 5/16 (Comfort EZ Pen [place]) evolocumab 140 mg/mL subcutaneous 140 mg subcut [...] % (Auto) 69.7, Lymph % (Auto) 20.2, [place]% (Auto) 8.0, Eos % (Auto) 1.5, Baso [...] right. Increased from prior exam. Reading Location: [facility] Assessment & Plan Assessment/Plan (1) Acute HFrEF (heart failure with reduced ejection fraction): PLAN: Plan The patient is a 64 y/o M w/ PMHx: Hx CVA w/ mild facial droop, CKD stage II perGFR trending, HFrEF, GERD, Anxiety and Depression, HTN, HLD, Diabetes mellitus type II, COPD/Asthma, Carotid disease s/p CEA, CAD s/p CABG x 4, Tobacco use whopresents to the [facility] ED on 11/10/2024 with history of [...] 16 minutes. Charges/Coding Visit Charges Inpatient E&M: 47849 Init Hosp L3 Procedures Hospitalists Procedures: 70895 Advncd Care Plan 30 Min 11/10/241955 <Electronically signed by Corazon Diaz MD> Cosigner Signature (if applicable): CC: Dr. Corazon Diaz MD; Dr. Xiang Rogers, DO~ Signed [facility] Work Phone: Hospital Discharge instructionsAdditional Instructions Thank you for trusting us with your care today! Please take prescribed Lasix. Please return to the emergency department if your symptoms change or worsen. Specifically develop worsening chest pain, leg swelling or shortness of breath. Please follow with your primary care physician for further outpatient evaluation and management.[facility] Work Phone: Hospital Discharge instructionsAdditional Instructions [...] the ER should you have any further concernsWThe [facility] Work Phone: Reason for referral (narrative)No reason for referral information availableWThe [facility] Work Phone: Advance Directives No Advanced Directives Records FoundDocuments on File Type Date Recorded Patient Meat Slicer Expl anation Advance Directive(s) 01/20/2017 7:47 AM Advance Directive(s) 09/05/2015 4:07 PM Advance Directive Response Recorded Date/ Time Advance Directives No January 13, 2020 3:59pm Living Will No July 18, 2021 9:19pm Power of Assistant Clinical Nurse Manager No July 18 9:19pm Advance Directive Response Recorded Date/ Time Advance Directives No January 13, 2020 3:59pm Living Will No December 08, 022 11:25pm Power of Assistant Clinical Nurse Manager No December 08, 2021 11:25pm Advance Directive Response Recorded Date/ Time Advance Directives No January 13, 2020 2:59pm Living Will No March 01, 2 022 9:51pm Power of Assistant Clinical Nurse Manager No March 01, 2022 9:51pm Advance Directive Response Recorded Date/ Time Advance Directives No January 13, 2020 2:59pm Living Will No April 18 1:40am Power of Assistant Clinical Nurse Manager No April 18, 2022 1:40am Advance Directive Response Recorded Date/ Time Advance Directives No January 13, 2020 2:59pm Living Will No May 21, 2 023 1:36am Power of Assistant Clinical Nurse Manager No May 21, 2022 1:36am Advance Directive Response Recorded Date/ Time Advance Directives No January 13, 2020 2:59pm Living Will No April 25 3:42pm Power of Assistant Clinical Nurse Manager No April 25, 2023 3:42pm Advance Directive Response Recorded Date/ Time Advance Directives No January 13, 2020 2:59pm Living Will No May 24, 2 024 12:27am Power of Assistant Clinical Nurse Manager No May 24, 2023 12:27am Advance Directive Response Recorded Date/ Time Living Will No August 23, 2023 6 :30pm Do you have a Healthcare Power of Assistant Clinical Nurse Manager? No August 23, 2023 6:30pm Advance Directives on File No 2024 8:15am Living Will No April 20 8:15am Do you have a Healthcare Power of Assistant Clinical Nurse Manager? No April 20, 2024 8:15am Advance Directives No April 20, 2024 8:15am Living Will No May 21 8:31pm Do you have a Healthcare Power of Assistant Clinical Nurse Manager? No May 21, 2024 8:31pm Advance Directive Response Recorded Date/ Time Living Will No August 23, 2023 6 :30pm Do you have a Healthcare Power of Assistant Clinical Nurse Manager? No August 23, 2023 6:30pm Living Will No May 21 8:31pm Do you have a Healthcare Power of Assistant Clinical Nurse Manager? No May 21, 2024 8:31pm Living Will No June 18, 2024 6:24am Do you have a Healthcare Power of Assistant Clinical Nurse Manager? No June 18, 2024 6:24am Do you have a Healthcare Power of Assistant Clinical Nurse Manager? No July 29, 2024 8:08pm Advance Directives No April 20, 2024 8:15am Advance Directive Response Recorded Date/ Time Living Will No August 23, 2023 6 :30pm Do you have a Healthcare Power of Assistant Clinical Nurse Manager? No August 23, 2023 6:30pm Do you have a Healthcare Power of Assistant Clinical Nurse Manager? No September 18, 2024 10:00am Living Will No May 21 8:31pm Do you have a Healthcare Power of Assistant Clinical Nurse Manager? No May 21, 2024 8:31pm Living Will No June 18, 2024 6:24am Do you have a Healthcare Power of Assistant Clinical Nurse Manager? No June 18, 2024 6:24am Do you have a Healthcare Power of Assistant Clinical Nurse Manager? No July 29, 2024 8:08pm Advance Directives No April 20, 2024 8:15am Advance Directive Response Recorded Date/ Time Living Will No August 23, 2023 6 :30pm Do you have a Healthcare Power of Assistant Clinical Nurse Manager? No August 23, 2023 6:30pm Do you have a Healthcare Power of Assistant Clinical Nurse Manager? No September 18, 2024 3:22pm Living Will No June 18, 2024 6:24am Do you have a Healthcare Power of Assistant Clinical Nurse Manager? No March 15th, 2025 6:24am Do you have a Healthcare Power of Assistant Clinical Nurse Manager? No July 29, 2024 8:08pm Advance Directives No April 20, 2024 8:15am Advance Directive Response Recorded Date/ Time Living Will No August 23, 2023 6 :30pm Do you have a Healthcare Power of Assistant Clinical Nurse Manager? No August 23, 2023 6:30pm Do you have a Healthcare Power of Assistant Clinical Nurse Manager? No September 18, 2024 3:22pm Do you have a Healthcare Power of Assistant Clinical Nurse Manager? No October 19, 2024 6:36pm Do you have a Healthcare Power of Assistant Clinical Nurse Manager? No July 29, 2024 8:08pm Advance Directives No April 20, 2024 8:15am Advance Directive Response Recorded Date/ Time Living Will No August 23, 2023 6 :30pm Do you have a Healthcare Power of Assistant Clinical Nurse Manager? No August 23, 2023 6:30pm Do you have a Healthcare Power of Assistant Clinical Nurse Manager? No September 18, 2024 3:22pm Do you have a Healthcare Power of Assistant Clinical Nurse Manager? No October 19, 2024 6:36pm Do you have a Healthcare Power of Assistant Clinical Nurse Manager? Yes October 21, 2024 4:34pm Do you have a Healthcare Power of Assistant Clinical Nurse Manager? No July 29, 2024 8:08pm Advance Directives No April 20, 2024 8:15am Advance Directive Response Recorded Date/ Time Living Will No August 23, 2023 6 :30pm Do you have a Healthcare Power of Assistant Clinical Nurse Manager? No August 23, 2023 6:30pm Do you have a Healthcare Power of Assistant Clinical Nurse Manager? No September 18, 2024 3:22pm Do you have a Healthcare Power of Assistant Clinical Nurse Manager? No October 19, 2024 6:36pm Do you have a Healthcare Power of Assistant Clinical Nurse Manager? Yes October 21, 2024 4:34pm Do you have a Healthcare Power of Assistant Clinical Nurse Manager? No July 29, 2024 8:08pm Do you have a Healthcare Power of Assistant Clinical Nurse Manager? Yes October 23, 2024 6:04pm Advance Directives No April 20, 2024 8:15am Advance Directive Response Recorded Date/ Time Living Will No August 23, 2023 6 :30pm Do you have a Healthcare Power of Assistant Clinical Nurse Manager? No August 23, 2023 6:30pm Do you have a Healthcare Power of Assistant Clinical Nurse Manager? No September 18, 2024 3:22pm Do you have a Healthcare Power of Assistant Clinical Nurse Manager? No October 19, 2024 6:36pm Do you have a Healthcare Power of Assistant Clinical Nurse Manager? Yes October 21, 2024 4:34pm Do you have a Healthcare Power of Assistant Clinical Nurse Manager? No July 29, 2024 8:08pm Do you have a Healthcare Power of Assistant Clinical Nurse Manager? Yes October 23, 2024 6:04pm Do you have a Healthcare Power of Assistant Clinical Nurse Manager? No October 26, 2024 11:37pm Advance Directives No April 20, 2024 8:15am Advance Directive Response Recorded Date/ Time Living Will No August 23, 2023 6 :30pm Do you have a Healthcare Power of Assistant Clinical Nurse Manager? No August 23, 2023 6:30pm Do you have a Healthcare Power of Assistant Clinical Nurse Manager? No September 18, 2024 3:22pm Do you have a Healthcare Power of Assistant Clinical Nurse Manager? No October 19, 2024 6:36pm Do you have a Healthcare Power of Assistant Clinical Nurse Manager? Yes October 21, 2024 4:34pm Do you have a Healthcare Power of Assistant Clinical Nurse Manager? No November 10, 2024 4:22pm Do you have a Healthcare Power of Assistant Clinical Nurse Manager? No July 29, 2024 8:08pm Do you have a Healthcare Power of Assistant Clinical Nurse Manager? Yes October 23, 2024 6:04pm Do you have a Healthcare Power of Assistant Clinical Nurse Manager? No October 26, 2024 11:37pm Advance Directives No April 20, 2024 8:15am Advance Directive Response Recorded Date/ Time Living Will No August 23, 2023 6 :30pm Do you have a Healthcare Power of Assistant Clinical Nurse Manager? No August 23, 2023 6:30pm Do you have a Healthcare Power of Assistant Clinical Nurse Manager? No September 18, 2024 3:22pm Do you have a Healthcare Power of Assistant Clinical Nurse Manager? No October 19, 2024 6:36pm Do you have a Healthcare Power of Assistant Clinical Nurse Manager? Yes October 21, 2024 4:34pm Do you have a Healthcare Power of Assistant Clinical Nurse Manager? No November 10, 2024 8:48pm Do you have a Healthcare Power of Assistant Clinical Nurse Manager? No July 29, 2024 8:08pm Do you have a Healthcare Power of Assistant Clinical Nurse Manager? Yes October 23, 2024 6:04pm Do you have a Healthcare Power of Assistant Clinical Nurse Manager? No October 26, 2024 11:37pm Advance Directives No April 20, 2024 8:15am Advance Directive Response Recorded Date/ Time Living Will No August 23, 2023 6 :30pm Do you have a Healthcare Power of Assistant Clinical Nurse Manager? No August 23, 2023 6:30pm Do you have a Healthcare Power of Assistant Clinical Nurse Manager? No September 18, 2024 3:22pm Do you have a Healthcare Power of Assistant Clinical Nurse Manager? No October 19, 2024 6:36pm Do you have a Healthcare Power of Assistant Clinical Nurse Manager? Yes October 21, 2024 4:34pm Do you have a Healthcare Power of Assistant Clinical Nurse Manager? No November 10, 2024 8:48pm Do you have a Healthcare Power of Assistant Clinical Nurse Manager? No November 22, 2024 9:54am Do you have a Healthcare Power of Assistant Clinical Nurse Manager? No July 29, 2024 8:08pm Do you have a Healthcare Power of Assistant Clinical Nurse Manager? Yes October 23, 2024 6:04pm Do you have a Healthcare Power of Assistant Clinical Nurse Manager? No October 26, 2024 11:37pm Advance Directives No April 20, 2024 8:15am Date Activated Date Inactivated Comments 12/20/2024 4:50 AM Question Answer Comments Full Code Order Discussed With: Discussion Not M edically Appropriate Chief Complaint and Reason for Visit Chief [...] diabetes mellitus Stenosis of right carotid artery [id number] Nicotine dependence Chief Complaint 3 M FU Amb Documentation LOWER lung cancer screening SCREENING 3 M FU NSTEMI Reason for Visit Essential (primary) hypertension Insulin dependent diabetes mellitus Stenosis of right carotid artery [id number] Nicotine dependence Essential (primary) hypertension Hyperlipidemia Insulin dependent diabetes mellitus H/O coronary artery bypass surgery NSTEMI, initial episode of care Insulin dependent diabetes mellitus Nicotine dependence Chief Complaint LOWER lung cancer screening SCREENING 3 M FU NSTEMI NSTEMI NSTEMI NSTEMI [facility] FU- HEART ATTACK s/p [facility] ED NSTEMI 1-14 lower extrem Reason for Visit [id number] Nicotine dependence Essential (primary) hypertension Hyperlipidemia Insulin [...] 3 M FU NSTEMI NSTEMI NSTEMI NSTEMI [facility] FU- HEART ATTACK s/p [facility] ED NSTEMI 1-14 lower extrem EORDER Reason for Visit [id number] Nicotine dependence Essential (primary) hypertension Hyperlipidemia Insulin [...] hypertension Insulin dependent diabetes mellitus Nicotine dependence [id number] Nicotine dependence Chief Complaint Admit Date 3-4 M FU February 24, 2024 11:07am 3 M FU February 24, 2024 12:58pm PVD, OPEN WOUND March 09, 2024 9 :11am 4-5 WK FU March 22, 2024 10:47am Peripheral vascular disease, unspecified March 29, 2024 1:23pm 6 M FU April 01, 2024 9:49am Discuss CTA results April 08, 2024 12 :56pm Atherosclerosis of [place] arteries of ri ght leg [place] April 20, 2024 6:47am Atherosclerosis of [place] arteries of ri ght leg wi April [...] r 2023 12:58pm Insulin dependent diabetes mellitus Jesse allyn 2023 12:58pm Nicotine dependence February 24, 2024 [...] [place] PD June 20, 2024 10:58am S/P H 06/21July 12, 2024 9:51 am [...] [place] PD June 20, 2024 10:58am S/P H 06/21July 12, 2024 9:51 am Discuss Results July 14, 2024 9:5 4am chest pain July 29, 2024 7:5 8pm 3 M FU August 02, 2024 11: 21am CAROTID ARTERY DISEASE September 08, 2024 10 :08am HFrEF EXACERBATION September 18, 2024 1:39 pm Reason for Visit Admit Date Acute hypoxemic respiratory failure [facility] 2024 4:45am Acute respiratory distress June [...] 2024 9:55am Chief Complaint Admit Date S/P [facility] 06/21July 12, 2024 9:51 am Discuss [...] 2024 9:55am Chief Complaint Admit Date S/P [facility] 06/21July 12, 2024 9:51 am Discuss [...] 4:25 pm Chief Complaint Admit Date S/P [facility] 06/21July 12, 2024 9:51 am Discuss [...] 5:53 pm Chief Complaint Admit Date S/P [facility] 06/21July 12, 2024 9:51 am Discuss [...] 11:2 7pm Chief Complaint Admit Date S/P [facility] 06/21July 12, 2024 9:51 am Discuss [...] 2024 10:15am Chief Complaint Admit Date S/P [facility] 06/21July 12, 2024 9:51 am Discuss [...] November 03, 2024 10:1 5am 3 M /[facility] ER FU November 04, 2024 1:3 [...] November 03, 2024 10:1 5am 3 M FU/[facility] ER FU November 04, 2024 1:3 [...] November 03, 2024 10:1 5am 3 M FU/[facility] ER November 04, 2024 1:3 6pm [...] November 03, 2024 10:1 5am 3 M /[facility] ER November 04, 2024 1:3 6pm [...] 7:31pm H/O coronary artery bypass surgery Augus t 2024 7:31pm Chief Complaint Admit Date chest [...] November 03, 2024 10:1 5am 3 M FU/[facility] ER FU November 04, 2024 1:3 [...] November 03, 2024 10:1 5am 3 M FU/H ER FU November 04, 2024 1:3 6pm [...] Type 2 diabetes mellitus treated with in [facility] August 02, 2024 11:21am Hyperlipidemia August 02, [...] Type 2 diabetes mellitus treated with in [facility] November 04, 2024 1:36pm COPD (chronic obstructive [...] Yamilka Parekh MD [address] [place] [address] [address] Imaging Referral ID Status Reason Start Date Expiration Date Visits Requested Visits Authorized [id number] Additional Clinical Info Needed Auto-Generat ed Referral 01/06/2022 02/05/2023 1 1 Specialty Diagnoses / Procedures Referred By David rausch Referred To Contact CT IMAGING Diagnoses Left groin pain Procedures CT PELVIS WO IVCON CT PELVIS W/O CONTRAST MATERIAL Yamilka Parekh MD [address] [place] [address] [place] [id number] Referral ID Status Reason Start Date Expiration Date V isits Requested Visits Authorized [id number] Closed Auto-Generate d Referral 01/06/2022 03/16/2022 2 2 Summary Purpose Additional Source Comments Source Comments (unrecognize d section and content) In the event this informatio n is protected by the Federal Confidentiality of Alcohol and Drug Abuse Patient Records regulations: The Federal rules restrict any use of the information to criminally investigate or prosecute any alcohol or drug abuse patient.[facility] the event this information is protected by the Federal Confidentiality of Alcohol and Drug Abuse Patient Records regulations: The Federal rules restrict any use of the information to criminally investigate or prosecute any alcohol or drug abuse patient.[facility] the event this information is protected by the Federal Confidentiality of Alcohol and Drug Abuse Patient Records regulations: The Federal rules restrict any use of the information to criminally investigate or prosecute any alcohol or drug abuse patient.[facility] the event this information is protected by the Federal Confidentiality of Alcohol and Drug Abuse Patient Records regulations: The Federal rules restrict any use of the information to criminally investigate or prosecute any alcohol or drug abuse patient.[facility] the event this information is protected by the Federal Confidentiality of Alcohol and Drug Abuse Patient Records regulations: The Federal rules restrict any use of the information to criminally investigate or prosecute any alcohol or drug abuse patient.[facility] the event this information is protected by the Federal Confidentiality of Alcohol and Drug Abuse Patient Records regulations: The Federal rules restrict any use of the information to criminally investigate or prosecute any alcohol or drug abuse patient.[facility] the event this information is protected by the Federal Confidentiality of Alcohol and Drug Abuse Patient Records regulations: The Federal rules restrict any use of the information to criminally investigate or prosecute any alcohol or drug abuse patient.[facility] the event this information is protected by the Federal Confidentiality of Alcohol and Drug Abuse Patient Records regulations: The Federal rules restrict any use of the information to criminally investigate or prosecute any alcohol or drug abuse patient.[facility] Reason for Visit (unrecogniz ed section [...] MATERIAL Yamilka Parekh MD [address] [place] [address] [place] [id number] Referral ID Status Reason Start Date Expiration Date V isits Requested Visits Authorized [id number] Closed Auto-Generate d Referral 01/06/2022 03/16/2022 2 2 Reason Comments Cough Chest congestion, ru nny nose x1 week Reason Onset Date Comments Hospital Admission 12/19/2024 Goals (unrecognized section and content) Goals may [...] Care Teams (unrecognized sec tion and content) Label Fuser Tender Relationship Specialty Start Date End Date Xiang Rogers, DO [address] [place], [place] [id number] PCP - General Family Medicine 01/03/22 Label Fuser Tender Relationship Specialty Start Date End Date Xiang Rogers DO [address] [place] [address] PCP - General Family Medicine 01/03/22 Label Fuser Tender Relationship Specialty Start Date End Date Rebel Rogerslas Suamn DO [address] [place] [address] PCP - General Family Medicine 01/03/22 Team [...] DO Primary Care Provider Active Kimberli Mora COMMUNICATION ENGINEER, COMMUNICATION ENGINEER-C Attending Provider, Referring Provider Active Team [...] Provider, Referr ing Provider Active Dean Pena COMMUNICATION ENGINEER, COMMUNICATION ENGINEER-C Attending Provider Active Team Status: Inactive [...] DO Primary Care Provider Active Dean Pena COMMUNICATION ENGINEER, COMMUNICATION ENGINEER-C Attending Provider, Referring Pro vider Active Label Fuser Tender Relationship Specialty Start Date End Date Xiang Rogers DO [address] [place] [address] PCP - General Family Medicine 01/03/22 Label Fuser Tender Relationship Specialty Start Date End Date Xiang Rogers DO [address] [place] [address] PCP - General Family Medicine 01/03/22 Team [...] Provider, Referr ing Provider Active Kimberli Mora COMMUNICATION ENGINEER, COMMUNICATION ENGINEER-C Attending Provider Active Team Status: Inactive Member Role Status Dates Dr. Xiang Rogers DO Primary Care Provider Active Dr. Saúl Aguilar , DO Attending Provider, Emergency P rovider Active Label Fuser Tender Relationship Specialty Start Date End Date Xiang Rogers DO [address] [place] [address] PCP - [facility] Family Medicine 01/03/22 Team Status: Active Member [...] tart: March 09, 2024 Dr. Jose Small , RAZA Referring Provider Active Start: March 09, 2024 [...] 2024 End: May 09, 2024 NILSON Schaeffer Referring Provider Active Start: May 09, 2024 [...] 2024 End: June 20, 2024 Dean Pena COMMUNICATION ENGINEER, COMMUNICATION ENGINEER-C Other Provider Active Start : June 18, 2024 End: June 20, 2024 Magaly Abdi PA, PA Other Provider Active Start: June 18, 2024 End: June 20, 2024 NILSON Petersen Other Provider Active Start: June 18, 2024 End: June 20, 2024 Dr. Triston Muro MD Other Provider Active Start: June 18, 2024 End: June 20, 2024 Dr. Donna Hartley MD Other Provider Active Star t: June [...] Provider Active Start: June 19, 2024 Dr. Steev Esteban DO Other Provider Active Start: June 19, 2024 Dr. Mary Kay Nagel MD Other Provider Active Start: June 19, 2024 Dr. Otilia Chaudahry MD Other Provider Active St art: June [...] Active Start: June 19, 2024 Dean Pena COMMUNICATION ENGINEER, COMMUNICATION ENGINEER-C Other Provider Active Start : June 19, 2024 Magaly Abdi PA, PA Other Provider Active Start: June 19, 2024 NILSON Petersen Other Provider Active Start: June 19, 2024 Dr. Donna Hartley MD Attending Provider Active Start: June 19, 2024 Dr. Donna Hartley MD Other Provider Active Star t: June [...] Active Start: June 19, 2024 Dean Pena COMMUNICATION ENGINEER, COMMUNICATION ENGINEER-C Other Provider Active Start : June 19, 2024 Magaly DEVINE, PA Other Provider Active Start: June 19, 2024 NILSON Petersen Other Provider Active Start: June 19, 2024 Dr. Donna Hartley MD Other Provider Active Star t: June 19, 2024 Dr. Triston Mruo MD Other Provider Active Start: June 19, [...] Active Start: June 20, 2024 Dean Pena COMMUNICATION ENGINEER, COMMUNICATION ENGINEER-C Other Provider Active Start : June 20, 2024 Magaly Abdi PA, PA Other Provider Active Start: June 20, 2024 NILSON Petersen Other Provider Active Start: June 20, 2024 Dr. Triston Muro MD Other Provider Active Start: June 20, 2024 Dr. Seth Carrington DO Other Provider Active S tart: June 20, 2024 Dr. Donna Hartley MD Other Provider Active Star t: June [...] Active Start: June 20, 2024 Dean Pena COMMUNICATION ENGINEER, COMMUNICATION ENGINEER-C Other Provider Active Start : June [...] S tart: June 20, 2024 Dr. Donna Hartley MD Other Provider Active Star t: June 20, 2024 Team Status: Inactive Member Role Status Dates Dr. Xiang Rogers DO Primary Care Provider Active Start: July 12, 2024 End: July 12, 2024 Dr. Xiang Rogers DO Referring Provider Active Start: July 12, 2024 End: July 12, 2024 Ronit Galvez COMMUNICATION ENGINEER, COMMUNICATION ENGINEER-C Attending Provider Active Start: July 12, [...] September 18, 2024 Dr. Clinton Soares , Admit Provider Active Start: September 18, 2024 Dr. Clinton Soares DO Attending Provider Active Start: September 18, 2024 Dr. Clinton Soares , DO Other Provider Active Start: September 18, 2024 Team Status: Active Member Role Status Dates Dr. Xiang R Brown , [...] 2024 End: September 21, 2024 Dr. Donna Hartley MD Attending Provider Active Start: September 18, [...] Provider Active Start: September 19, 2024 Dr. Clitnon Soares , DO Other Provider Active Start: [...] Active Start: September 21, 2024 Dr. Donna Hartley MD Attending Provider Active Start: September 21, 2024 Dr. Donna Hartley MD Other Provider Active Star t: September [...] 2024 End: July 12, 2024 Ronit Galvez COMMUNICATION ENGINEER, COMMUNICATION ENGINEER-C Attending Provider Active Start: July 12, [...] 2024 End: September 21, 2024 Dr. Donna Hartley MD Attending Provider Active Start: September 18, [...] Active Start: September 21, 2024 Dr. Donna Hartley MD Attending Provider Active Start: September 21, 2024 Dr. Donna Hartley MD Other Provider Active Star t: September 21, 2024 Dr. Seth Carrington , Other Provider Active S tart: September 21, 2024 Team Status: Inactive Member Role/Relationship Status Dates Dr. Xiang Rogers , Primary Care Provider Active Start: September 27, [...] 2024 End: October 27, 2024 Dr. Bronson Tolnetino DO Attending Provider Active Start: October 26, [...] 2024 End: September 21, 2024 Dr. Donna Hartley MD Attending Provider Active Start: September 18, [...] Provider Active Start: September 21, 2024 Dr. lCinton Soares , DO Other Provider Active Start: September 21, 2024 Dr. Donna Hartley MD Attending Provider Active Start: September 21, 2024 Dr. Donna Hartley MD Other Provider Active Star t: September 21, 2024 Dr. Seth Carrington , DO Other Provider Active S tart: September 21, 2024 Team Status: Inactive Member Role/Relationship Status Dates Dr. Xiang Rogers , Primary Care Provider Active Start: September 27, [...] Provider Active Start: November 10, 2024 Dr. Bisohp Monique DO Emergency Provider Activ e Start: [...] , Primary Care Provider Active Start: September 08, 2024 Dr. Saúl Flowers MD Attending Provider Active S tart: September 08, 2024 NILSON Heck Referring Provider Active Star t: September 08, 2024 Team Status: Inactive Member Role/Relationship Status Dates Dr. Xaing Rogers , Primary Care Provider Active Start: September 18, [...] 2024 End: September 21, 2024 Dr. Donna Hartley MD Attending Provider Active Start: September 18, [...] Active Start: September 21, 2024 Dr. Donna Hartley MD Attending Provider Active Start: September 21, 2024 Dr. Donna Hartley MD Other Provider Active Star t: September 21, 2024 Dr. Seth Carrington , DO Other Provider Active S tart: September 21, 2024 Team Status: Inactive Member Role/Relationship Status Dates Dr. Xiang Rogers , Primary Care Provider Active Start: September 27, [...] End: November 13, 2024 Dr. Bishop Monique DO [...] Provider Active Start: November 14, 2024 Magaly Abdi PA, PA Referring Provider Active Start: November 14, [...] Attending Provider Active Start: November 22, 2024 Label Fuser Tender Relationship Specialty Start Date End Date Xiang Rogers DO [address] [place] [address] PCP - General Family Medicine 01/03/22 (unrecognized sect ion and content) No Status Records FoundNo Status Records FoundNo Status Records FoundNo Status Records FoundNo Status Records Found INFORMATION SOURCE (unrecogn ized section and content) DATE CREATED AUTHOR 01/18/2025 [facility] DATE CREATED AUTHOR AUTHOR'S ORGANIZ ATION 01/19/2025 [facility] DATE CREATED AUTHOR AUTHOR'S ORGANIZ ATION 02/11/2025 [facility] DATE CREATED AUTHOR AUTHOR'S ORGANIZ ATION 02/15/2025 [facility] DATE CREATED AUTHOR AUTHOR'S ORGANIZ ATION 02/15/2025 [facility] FOR RECORDS PERTAINING TO PATIENTS WHO [...] BE BASED ON THE PRIMARY CLINICAL RECORDS. [facility]. provides no warranty or guarantee of the accuracy or completeness of information in this document.
[2025-03-14 03:48] LABS: Magnesium 1.6 mg/dL (1.5-2.2)
[2025-03-14] MEDS: Lactated Ringers 1,000 ML 75 ML IV (04:13)
[2025-03-14] MEDS: proMETHazine 25 MG/ML Syringe 12.5 MG IM (04:42)
[2025-03-14 07:13] LABS: Hematocrit 38.3 % (40-54); Hemoglobin 12.2 g/dL (13.0-16.5); Immature Granulocytes Count 0.020 X10^3/uL (0.0-0.0); Mean Corp Hgb Conc 31.9 g/dL (32-36); Mean Corpuscular Volume 98.0 fL (80-94); Mean Platelet Vol. 10.2 fl (6.2-12.0); NRBC Flagged by Analyzer 0.2 % (0-5); Platelet Count 309 K/mm3 (150-450); RBC Distribution Width CV 17.9 % (11.6-14.6); RBC Distribution Width SD 62.9 fl (35.1-43.9); Red Blood Count 3.91 M/mm3 (4.6-6.2); White Blood Count 9.3 K/mm3 (4.4-11.0)
[2025-03-14 08:10] LABS: Anion Gap 22 (5-15); BUN 39 mg/dL (4-19); BUN/Creat Ratio 21.5 RATIO (10-20); Calcium,Total 9.5 mg/dL (7.6-11.0); Carbon Dioxide 25.9 mmol/L (21.0-32.0); Chloride 98 mmol/L (98-108); Estimated Creatinine Clearance 42.86 ml/min (50-250); Glucose 115 mg/dL (70-99); Potassium 4.7 mmol/L (3.3-5.1)
--- NOTE | 2025-03-14 08:42 | NURSING ---
Dr Garay contacted after initial NIH score obtained with 2 PCU nurses. NIH was 7. ER scores were 1 and 3. Patient got Leonard and Sherry in ER Per Dr Garay do not need to call another stroke alert at this time and continue to monitor.
[2025-03-14 08:44] LABS: Cholesterol 82 mg/dL (<=200); Low Density Lipoprotein Calc. 22 mg/dL; Triglycerides 139 mg/dL; Very Low Density Lipoprotein 28 mg/dL (5-40); cholesterol:hdl ratio screen 2.28
--- NOTE | 2025-03-14 09:25 | CASEMGMT ---
Discharge Planning Updates sent via [facility] to [place] with note that pt is being transferred to [facility]. Tiffany Perdomo DC Planning Asst.
[2025-03-14] MEDS: Heparin Injection (Vial) 5,000 UNIT/ML VIAL 5000 UNIT SC (10:49)
--- NOTE | 2025-03-14 12:11 | WOUNDNOTE ---
wound photo: right dent
--- NOTE | 2025-03-14 12:12 | WOUNDNOTE ---
wound photo: left dorsal foot
--- NOTE | 2025-03-14 14:04 | STROKE.CONS ---
Assessment and Plan: Stroke Assessment/Plan KANA MEJAI Sr. is a 65 M with a history of DM2, PAD with gangrene of the L foot, prior CVA who presents for evaluation of L facial weakness, increased confusion in setting of fluctuating BP, hypoglycemia. Exam with poor withdrawal in the LLE d/t dec sensation, severe agitation from hyperactive delirium but no other focal signs. Ddx includes recrudescence of old stroke symptoms, new stroke, infection, seizure. - UA - cont ASA/Plavix - keep SBP 120-180 in the hospital - routine EEG - agree with MRI brain when able, if not able to get tomorrow, rec repeat CTH Continue metabolic management per primary team. Aggressive bowel regiment. HPI Consult Data Date of Consult: 03/14/25 HPI Narrative HPI Narrative: KANA MEJIA, geeta a 65 M was brought to ED by EMS from [facility] for hypoglycemia and concern of possible TIA. As per skilled nursing, patient's BP was 216/88 and then dropped to 88/20 as per EMS. He also had facial droop. Was was also found hypoglycemia, glucose 25 and was given IM glucagon. EMS vitals shows BP 140s/74 and heart rate 117. Repeat glucose was 234 with no signs of hypoglycemia. Besides that, patient has chronic right foot infection and ulcer for which he is getting the treatment as per [facility] consulted. Patient also has right chest central line. As per ED physician Dr. Knight, patient denies chest pain pressure or dyspnea and there are some subtle right-sided facial droop and right leg weakness. No fever or chills or visual changes. No right arm weakness. No seizure. Stroke alert was called and patient had CT scan and CTA head and neck. Patient was evaluated by [facility] stroke neurologist and was given aspirin. Findings are discussed in assessment and plan. In the meantime, it was found that patient was supposed to go to [facility] ED to see infectious disease and patient was having hallucinations which were getting worse and attributed to to daptomycin. Daptomycin on hold. ED physician discussed with Dr. Hartley who accepted the patient to the service of Dr. Thornton but there is no bed available. Patient has been in ED for about 10 hours therefore admitted to PCU Patient is also very agitated confused, trying to get out of the bed therefore Geodon 10 mg IM given before I see the patient. Patient not able to give any history, confused therefore history mainly taken from the ED physician and the chart. Neurologic History Patient is very agitated. Unable to get MRI today because of agitation. Pt is noted to be confused at baseline. Exam -? NEURO: -? Mental Status: The patient is intermittently sleepy then awake, poor attention -? Language: follows one step commands, appears to attend appropriately. -? Cranial Nerves: PERRL 4 mm/brisk. EOMI, visual cardenas full, no facial asymmetry, R eye ptosis, facial sensation intact, hearing intact, tongue midline -? Motor: UE antigravity bilaterlly but drift to bed d/t poor attention LE move in plane in bed volitionally asterixis bilaterally present -? Sensation- withdrawal in the RLE to noxious stim, no withdrawal in the LLE -? Coordination: deferred -? Gait- deferredl. [facility] Medical History Type 2 diabetes mellitus with foot ulcer Atherosclerosis of [place] arteries of extremities with gangrene, left leg Bacteremia due to Gram-negative bacteria Severe sepsis History of diabetes mellitus Lower extremity edema History of CVA (cerebrovascular accident) Cardiac LV ejection fraction 30-35% GERD (gastroesophageal reflux disease) Anxiety High blood cholesterol Diabetes mellitus Emphysema, unspecified COPD (chronic obstructive pulmonary disease) Decreased left ventricular function Encounter for screening for malignant neoplasm of lung in current smoker with 30 pack year history or greater Stenosis of right carotid artery Insulin dependent diabetes mellitus History of non-ST elevation myocardial infarction (NSTEMI) (06/11/18) Emphysema lung Asthma Type 2 diabetes mellitus Arthritis Pancreatitis GERD (gastroesophageal reflux disease) Nicotine dependence Atherosclerosis of coronary artery of [place] heart without angina pectoris Hyperlipidemia Essential (primary) hypertension Home Medications ?Medication ?Instructions ?Recorded ?Last Taken ?Type blood sugar diagnostic (FreeStyle #50 ea 04/02/21 Unknown Rx Test strips) blood-glucose meter (FreeStyle #1 ea 04/02/21 Unknown Rx System Kit) lancets 28 gauge (FreeStyle #50 ea 04/02/21 Unknown Rx Lancets) pen needle, diabetic 31 gauge x #100 ea 04/02/21 Unknown Rx 3/16 (1st Tier Unifine Pentips Plus) Handicap placard #1 ea 07/22/23 Unknown Rx pen needle, diabetic 31 gauge x #100 ea 10/28/23 Unknown Rx 5/16 (Comfort EZ Pen [place]) evolocumab 140 mg/mL subcutaneous 140 mg subcut Q2W cholesterol #6 mL 05/09/24 03/06/25 Rx pen injector (Repatha SureClick) fluticasone propionate 50 2 spray intranasal DAILY PRN nasal 09/18/24 Unknown History mcg/actuation nasal congestion spray,suspension (Flonase Allergy Relief) nitroglycerin 0.4 mg sublingual 0.4 mg sublingual Q5M PRN 09/27/24 Unknown Rx tablet Cardiac/Chest Pain #25 tabs aspirin 81 mg chewable tablet 81 mg PO BREAKFAST preventative 11/03/24 Unknown Rx #90 tabs clopidogrel 75 mg tablet 75 mg PO DAILY antiplatelet #90 11/03/24 Unknown Rx tabs ezetimibe 10 mg tablet 10 mg PO DAILY cholesterol #90 tabs 11/03/24 Unknown Rx albuterol sulfate 90 mcg/actuation 2 puff inhalation Q4H PRN 11/04/24 Unknown Rx aerosol inhaler shortness of breath or wheezing #6.7 grams acetaminophen 500 mg capsule 500 mg PO Q6H PRN pain 12/19/24 Unknown History bisacodyl 10 mg rectal suppository 10 mg IN DAILY PRN constipation 12/19/24 Unknown History (Laxative (bisacodyl)) fluticasone 100 mcg-salmeterol 50 1 inh inhalation DAILY COPD 12/19/24 Unknown History mcg/dose blistr powdr for inhalation (Advair Diskus) hydroxyzine pamoate 25 mg capsule 25 mg PO Q8H PRN anxiety 12/19/24 Unknown History (Vistaril) therapeutic multivitamin 1 tab PO DAILY 12/19/24 Unknown History daptomycin 500 mg intravenous 600 mg IV Q24H 03/01/25 02/28/25 History solution Held on 03/13/25. Instructions: Ordered insulin lispro 100 unit/mL See Protocol subcut DAILY 03/01/25 Unknown History subcutaneous pen (Humalog KwikPen (U-100) Insulin) lidocaine 4 % topical patch 1 patch topical BID PRN pain 03/01/25 Unknown History (Aspercreme (lidocaine)) metoprolol succinate 25 mg 25 mg PO DAILY HTN 03/01/25 Unknown History tablet,extended release 24 hr midodrine 5 mg tablet 5 mg PO TID low bp 03/01/25 Unknown History pantoprazole 40 mg tablet,delayed 40 mg PO DAILY GERD 03/01/25 Unknown History release (Protonix) polyethylene glycol 3350 17 17 g PO DAILY constipation 03/01/25 Unknown History gram/dose oral powder (Miralax) sennosides 8.6 mg capsule (senna) 8.6 mg PO BID 03/01/25 Unknown History sodium chloride 0.9 % (flush) 10 ml IV BID 03/01/25 Unknown History (Normal Saline Flush 0.9 % injection syringe) tamsulosin 0.4 mg capsule (Flomax) 0.4 mg PO DAILY BPH 03/01/25 Unknown History thiamine HCl (vitamin B1) 100 mg 100 mg PO DAILY 03/01/25 Unknown History tablet (Vitamin B-1) torsemide 40 mg tablet 40 mg PO DAILY 03/01/25 Unknown History trazodone 50 mg tablet 25 mg PO QHS insomnia 03/01/25 Unknown History atorvastatin 40 mg tablet (Lipitor) 40 mg PO QHS 03/13/25 Unknown History magnesium hydroxide 400 mg/5 mL 30 ml PO DAILY PRN constipation 03/13/25 Unknown History oral suspension (Milk of Magnesia) mineral oil (Fleet Mineral Oil 118 ml IN DAILY PRN constipation 03/13/25 Unknown History enema) Allergy/AdvReac Type Severity Reaction Status Date / Time amoxicillin Allergy Angioedema Verified 03/13/25 15:18 lindane Allergy Rash Verified 03/13/25 15:18 Family History Father Asthma Alcoholism Arthritis Heart disease Hypertension High cholesterol CVA (cerebral vascular accident) Lung cancer Grandfather Myocardial infarction Surgical History S/P CABG x 4 History of hernia repair History of carotid endarterectomy (01/06/14) H/O coronary artery bypass surgery (2006) History of left heart catheterization (06/11/18) Social History household members: none housing: skilled nursing Smoking Status: Current some day smoker tobacco type: cigarettes Tobacco: How many years used: 45 Electronic Cigarette Use: not used second hand exposure: Yes quit status: considering quitting alcohol intake: never substance use type: does not use caffeine: Yes Type: coffee Number of servings: 5 what type of physical activity do you participate in: none Vital Signs Vital Signs Vital Signs: 03/13/25 15:20 03/13/25 15:24 03/13/25 15:47 Temperature 97.6 F L Temperature Source Axillary Pulse Rate 88 86 Pulse Strength Respiratory Rate 20 H 17 Respiratory Effort Normal Non-Labored Respiratory Depth Respiratory Pattern Normal Blood Pressure 109/79 110/81 H Blood Pressure Mean 89 90 Blood Pressure Source Blood Pressure Position Blood Pressure Location Pulse Ox 100 94 Oxygen Delivery Method Nasal Cannula Oxygen Flow Rate (L/min) 2 03/13/25 15:49 03/13/25 16:17 03/13/25 16:23 Temperature Temperature Source Pulse Rate 98 87 Pulse Strength Respiratory Rate 22 H 23 H Respiratory Effort Respiratory Depth Respiratory Pattern Blood Pressure 117/88 H Blood Pressure Mean 97 Blood Pressure Source Blood Pressure Position Blood Pressure Location Pulse Ox 95 98 100 Oxygen Delivery Method Nasal Cannula Nasal Cannula Oxygen Flow Rate (L/min) 2 2 03/13/25 16:30 03/13/25 16:38 03/13/25 16:45 Temperature Temperature Source Pulse Rate 90 88 85 Pulse Strength Respiratory Rate 16 21 H 22 H Respiratory Effort Respiratory Depth Respiratory Pattern Blood Pressure Blood Pressure Mean Blood Pressure Source Blood Pressure Position Blood Pressure Location Pulse Ox 96 92 90 Oxygen Delivery Method Oxygen Flow Rate (L/min) 03/13/25 16:49 03/13/25 17:00 03/13/25 17:15 Temperature 97.5 F L Temperature Source Axillary Pulse Rate 86 89 87 Pulse Strength Respiratory Rate 23 H 24 H 23 H Respiratory Effort Respiratory Depth Respiratory Pattern Blood Pressure 95/70 95/70 Blood Pressure Mean 78 79 Blood Pressure Source Blood Pressure Position Blood Pressure Location Pulse Ox 93 94 97 Oxygen Delivery Method Nasal Cannula Oxygen Flow Rate (L/min) 2 03/13/25 17:30 03/13/25 17:45 03/13/25 18:00 Temperature Temperature Source Pulse Rate 89 91 88 Pulse Strength Respiratory Rate 16 17 25 H Respiratory Effort Respiratory Depth Respiratory Pattern Blood Pressure Blood Pressure Mean Blood Pressure Source Blood Pressure Position Blood Pressure Location Pulse Ox 96 97 96 Oxygen Delivery Method Oxygen Flow Rate (L/min) 03/13/25 18:15 03/13/25 18:30 03/13/25 18:45 Temperature Temperature Source Pulse Rate 91 89 Pulse Strength Respiratory Rate 22 H Respiratory Effort Respiratory Depth Respiratory Pattern Blood Pressure Blood Pressure Mean Blood Pressure Source Blood Pressure Position Blood Pressure Location Pulse Ox 99 91 Oxygen Delivery Method Oxygen Flow Rate (L/min) 03/13/25 19:00 03/13/25 19:15 03/13/25 19:17 Temperature Temperature Source Pulse Rate 92 90 92 Pulse Strength Respiratory Rate 18 31 H 20 H Respiratory Effort Respiratory Depth Respiratory Pattern Blood Pressure Blood Pressure Mean Blood Pressure Source Blood Pressure Position Blood Pressure Location Pulse Ox Oxygen Delivery Method Oxygen Flow Rate (L/min) 03/13/25 19:30 03/13/25 19:45 03/13/25 20:01 Temperature Temperature Source Pulse Rate 93 85 80 Pulse Strength Respiratory Rate 21 H 22 H 18 Respiratory Effort Respiratory Depth Respiratory Pattern Blood Pressure 97/82 H 117/97 H Blood Pressure Mean 88 106 Blood Pressure Source Blood Pressure Position Blood Pressure Location Pulse Ox 99 Oxygen Delivery Method Oxygen Flow Rate (L/min) 03/13/25 20:27 03/13/25 20:30 03/13/25 20:45 Temperature Temperature Source Pulse Rate 88 86 89 Pulse Strength Respiratory Rate 19 H 16 18 Respiratory Effort Respiratory Depth Respiratory Pattern Blood Pressure Blood Pressure Mean Blood Pressure Source Blood Pressure Position Blood Pressure Location Pulse Ox 90 100 Oxygen Delivery Method Oxygen Flow Rate (L/min) 03/13/25 21:00 03/13/25 21:16 03/13/25 21:58 Temperature Temperature Source Pulse Rate 89 89 Pulse Strength Respiratory Rate 19 H 20 H Respiratory Effort Respiratory Depth Respiratory Pattern Blood Pressure Blood Pressure Mean Blood Pressure Source Blood Pressure Position Blood Pressure Location Pulse Ox 94 Oxygen Delivery Method Oxygen Flow Rate (L/min) 03/13/25 22:00 03/13/25 22:15 03/13/25 22:33 Temperature Temperature Source Pulse Rate 95 Pulse Strength Respiratory Rate Respiratory Effort Respiratory Depth Respiratory Pattern Blood Pressure Blood Pressure Mean Blood Pressure Source Blood Pressure Position Blood Pressure Location Pulse Ox 90 90 Oxygen Delivery Method Oxygen Flow Rate (L/min) 03/13/25 22:45 03/13/25 22:56 03/13/25 23:07 Temperature Temperature Source Pulse Rate Pulse Strength Respiratory Rate Respiratory Effort Respiratory Depth Respiratory Pattern Blood Pressure 107/68 Blood Pressure Mean 80 Blood Pressure Source Blood Pressure Position Blood Pressure Location Pulse Ox 90 90 Oxygen Delivery Method Oxygen Flow Rate (L/min) 03/13/25 23:17 03/14/25 00:30 03/14/25 00:45 Temperature Temperature Source Pulse Rate Pulse Strength Respiratory Rate Respiratory Effort Respiratory Depth Respiratory Pattern Blood Pressure Blood Pressure Mean Blood Pressure Source Blood Pressure Position Blood Pressure Location Pulse Ox 90 99 96 Oxygen Delivery Method Oxygen Flow Rate (L/min) 03/14/25 00:46 03/14/25 00:54 03/14/25 01:00 Temperature Temperature Source Pulse Rate 86 Pulse Strength Respiratory Rate Respiratory Effort Respiratory Depth Respiratory Pattern Blood Pressure 84/53 L 104/84 H 104/84 H Blood Pressure Mean 61 92 90 Blood Pressure Source Blood Pressure Position Blood Pressure Location Pulse Ox 90 95 90 Oxygen Delivery Method Nasal Cannula Oxygen Flow Rate (L/min) 2 03/14/25 01:00 03/14/25 01:15 03/14/25 01:45 Temperature Temperature Source Pulse Rate Pulse Strength Respiratory Rate Respiratory Effort Respiratory Depth Respiratory Pattern Blood Pressure Blood Pressure Mean Blood Pressure Source Blood Pressure Position Blood Pressure Location Pulse Ox 91 92 91 Oxygen Delivery Method Oxygen Flow Rate (L/min) 03/14/25 02:30 03/14/25 02:45 03/14/25 03:32 Temperature 97 F L Temperature Source Pulse Rate 92 84 Pulse Strength Respiratory Rate 22 H 19 H Respiratory Effort Respiratory Depth Respiratory Pattern Blood Pressure 110/57 L Blood Pressure Mean 74 Blood Pressure Source Blood Pressure Position Blood Pressure Location Pulse Ox 94 93 Oxygen Delivery Method Oxygen Flow Rate (L/min) 03/14/25 04:00 03/14/25 05:12 03/14/25 06:00 Temperature 98 F Temperature Source Axillary Pulse Rate 106 H Pulse Strength Respiratory Rate 22 H Respiratory Effort Normal Respiratory Depth Normal Respiratory Pattern Tachypnea Blood Pressure 108/66 Blood Pressure Mean 80 Blood Pressure Source Monitor Blood Pressure Position Semi-Fowlers Blood Pressure Location Left Arm Pulse Ox 94 94 Oxygen Delivery Method Nasal Cannula Nasal Cannula Nasal Cannula Oxygen Flow Rate (L/min) 4 3 6 03/14/25 08:37 03/14/25 08:37 03/14/25 10:00 Temperature 98.2 F Temperature Source Temporal Pulse Rate 103 H Pulse Strength Normal (2+) Respiratory Rate 18 Respiratory Effort Normal Non-Labored Respiratory Depth Normal Respiratory Pattern Normal Blood Pressure 148/57 H Blood Pressure Mean 87 Blood Pressure Source Monitor Blood Pressure Position Semi-Fowlers Blood Pressure Location Right Forearm Pulse Ox 94 Oxygen Delivery Method Venturi Mask Venturi Mask Oxygen Flow Rate (L/min) Weight Weight: 76.2 kg Body Mass Index (BMI) 23.5 EEG Results Procedure Details EEG Procedure Details: KANA MEJIA Sr. is a 65 year old M with a past medical history of , who presents for evaluation of Electroencephalogram on DATE at TIME Lab / Micro Data 03/14/25 06:55 03/14/25 06:55 Labs: Laboratory Results - last 24 hr 03/13/25 15:25: POC Glucose 204 H 03/13/25 15:44: WBC 7.3, RBC 4.39 L, Hgb 13.7, Hct 43.4, MCV 98.9 H, MCH 31.2, MCHC 31.6 L, RDW Std Deviation 63.3 H, RDW Coeff of [place] 17.8 H, Plt Count 296, MPV 10.3, Immature Gran % (Auto) 0.100, Neut % (Auto) 60.8, Lymph % (Auto) 30.6, [place] % (Auto) 6.3, Eos % (Auto) 1.8, Baso % (Auto) 0.4, Absolute Neuts (auto) 4.4, Absolute Lymphs (auto) 2.24, Nucleated RBC % 0, PT Cancelled, INR Cancelled, APTT Cancelled, Sodium 143, Potassium 4.3, Chloride 98, Carbon Dioxide 25.6, Anion Gap 20 H, BUN 35 H, Creatinine 1.52 H, Estim Creat Clear Calc 51.29, Est GFR (MDRD) Non-Af 51 L, BUN/Creatinine Ratio 22.8 H, Glucose 206 H, Hemoglobin A1c 7.3 H, Calcium 9.4, Troponin T High Sens 81 H* D 03/13/25 17:15: PT Cancelled, INR Cancelled, APTT Cancelled 03/13/25 17:45: PT Cancelled, INR Cancelled, APTT Cancelled, Troponin T Hi Sens 2 Hr 83 H* 03/13/25 18:26: PT 18.1 H, INR 1.5, APTT 29.3 03/13/25 19:12: Ammonia 14.9 L 03/13/25 20:06: Magnesium 1.6, Troponin T Hi Sens 4Hr 86 H*, TSH 2.340 03/13/25 20:10: POC Glucose 131 H 03/14/25 00:43: POC Glucose 120 H 03/14/25 03:48: POC Glucose 116 H 03/14/25 06:25: POC Glucose 113 H 03/14/25 06:55: WBC 9.3, RBC 3.91 L, Hgb 12.2 L, Hct 38.3 L, MCV 98.0 H, MCH 31.2, MCHC 31.9 L, RDW Std Deviation 62.9 H, RDW Coeff of [place] 17.9 H, Plt Count 309, MPV 10.2, Immature Gran % (Auto) 0.200, Neut % (Auto) 61.0, Lymph % (Auto) 29.3, [place] % (Auto) 7.9, Eos % (Auto) 1.2, Baso % (Auto) 0.4, Absolute Neuts (auto) 5.7, Absolute Lymphs (auto) 2.73, Nucleated RBC % 0.2, Sodium 146 H, Potassium 4.7, Chloride 98, Carbon Dioxide 25.9, Anion Gap 22 H, BUN 39 H, Creatinine 1.83 H, Estim Creat Clear Calc 42.86 L, Est GFR (MDRD) Non-Af 40 L, BUN/Creatinine Ratio 21.5 H, Glucose 115 H, Calcium 9.5, Triglycerides 139, Cholesterol 82, LDL Cholesterol, Calc 22, VLDL Cholesterol 28, HDL Cholesterol 36 L, Cholesterol/HDL Ratio 2.28 03/14/25 12:04: POC Glucose 102 Micro: Microbiology 03/14/25 09:45 Swab (Method) Streptococcus pyogenes (PCR) - Final 03/14/25 09:45 Mucosa - Nose SARS-CoV-2, Influenza & RSV (PCR) - Final Imaging Radiology Impression Head/Neck CTA 03/13/25 15:47 IMPRESSION: 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 Redemonstrated mild stenosis along the right M1 with minimal to mildly diminutive flow within right M2 and M3 distal branches compared to left. No new acute high-grade stenosis or large vessel occlusion. Large right pleural effusion and mild left pleural effusion. The critical findings in the findings and impression above were relayed directly by me by telephone to Saúl Aguilar on 03/13/2025 at 4:30 pm EST with readback verification. Reading Location: [facility] Brain CT 03/13/25 15:49 IMPRESSION: No acute, large territorial infarction. Stroke Alert: Negative The critical findings in the findings and impression above were relayed directly by me by telephone to Saúl Aguilar on 03/13/2025 at 4:22 pm EST with readback verification. Reading Location: [facility] Chest X-Ray 03/13/25 16:40 IMPRESSION: Unchanged cardiomegaly with moderate-large right pleural effusion. Reading Location: [facility] Active Medications Active Medications Active Medications: Current Medications Generic Name Dose Route Start Last Admin Trade Name Freq PRN Reason Stop Dose Admin Acetaminophen 650 mg 03/14/25 03:51 Acetaminophen 325 Mg Tablet PO Q4H PRN PRN Pain 1-10 Or Fever>99.6 Albuterol Sulfate 2.5 mg 03/14/25 03:51 Albuterol 2.5 Mg/3 Ml Vial.Neb. INHALATION Q4H PRN PRN shortness of breath/wheezing Aspirin 81 mg 03/14/25 08:00 03/14/25 10:46 Aspirin 81 Mg Tab.Chew PO Not Given BREAKFAST [facility] Atorvastatin Calcium 40 mg 03/14/25 22:00 Atorvastatin Calcium 40 Mg Tablet PO QHS HARINI Bisacodyl 10 mg 03/14/25 03:51 Bisacodyl 10 Mg Suppository RC DAILY PRN CONSTIPATION Clopidogrel Bisulfate 75 mg 03/14/25 10:00 03/14/25 10:47 Clopidogrel Bisulfate 75 Mg Tablet PO Not Given DAILY [facility] Collagenase 1 applic 03/15/25 10:00 Collagenase 30gm Tube TOPICAL DAILY [facility] Protocol Ezetimibe 10 mg 03/14/25 10:00 03/14/25 10:47 Ezetimibe 10 Mg Tablet PO Not Given DAILY [facility] Fluticasone Propionate 2 spray 03/14/25 03:51 Fluticasone 0.05% 1 [place] Nasal.Sry NASAL DAILY PRN NASAL CONGESTION Glucagon 1 mg 03/14/25 03:51 Glucagon 1 Mg/Ml Syringe IM X1 PRN Hypoglycemia Protocol Heparin Sodium (Porcine) 5,000 unit 03/14/25 10:00 03/14/25 10:49 Heparin Injection (Vial) 5,000 Unit/Ml Vial SC 5,000 unit Q12 HARINI Administration Hydralazine HCl 5 mg 03/14/25 03:51 Hydralazine 20 Mg/Ml Vial IV 03/15/25 03:51 Q30M PRN maintain BP parameters with HR <60 Hydroxyzine Pamoate 25 mg 03/14/25 03:51 Hydroxyzine Tonya 25 Mg Capsule PO Q8H PRN PRN ANXIETY Dextrose 250 mls @ 0 mls/hr 03/14/25 03:51 Dextrose 10%-Water IV .Q0M PRN HYPOGLYCEMIA Protocol As Directed Lactated Ringer's 1,000 mls @ 75 mls/hr 03/14/25 03:51 03/14/25 04:13 IV 03/15/25 06:30 75 mls/hr .[id number] HARINI Administration Insulin Human Lispro 0 unit 03/14/25 07:00 03/14/25 12:05 Insulin Lispro 100 Unit/Ml Insuln.Pen SC Not Given ACHS [facility] Protocol Labetalol HCl 10 - 20 mg 03/14/25 03:51 Labetalol 20 Mg/4 Ml Vial IV 03/15/25 03:51 Q10M PRN PRN maintain BP parameters with HR >/=60 Metoprolol Succinate 25 mg 03/14/25 10:00 03/14/25 10:47 Metoprolol(Xl)Succ 25 Mg Tablet PO Not Given DAILY [facility] Protocol Midodrine 5 mg 03/14/25 06:00 03/14/25 13:44 Midodrine Hcl 5 Mg Tablet PO Not Given TID [facility] Mineral Oil 118 ml 03/14/25 03:51 Mineral Oil 1 Bottle Enema RC DAILY PRN CONSTIPATION Nitroglycerin 0.4 mg 03/14/25 03:51 Nitroglycerin (Inpatient Use) 0.4 Mg Tab.Subl SL Q5M PRN CARDIAC/CHEST PAIN Oxycodone HCl 2.5 - 5 mg 03/14/25 03:51 Oxycodone 5 Mg Tablet PO Q4H PRN PRN Pain Score 4-10 Pantoprazole Sodium 40 mg 03/14/25 10:00 03/14/25 10:47 Pantoprazole Sodium 40 Mg Tablet PO Not Given DAILY HARINI Polyethylene Glycol 17 gm 03/14/25 10:00 03/14/25 10:47 Polyethylene Glycol 3350 17 Gm Packet PO Not Given DAILY HRAINI Promethazine HCl 12.5 mg 03/14/25 03:51 03/14/25 04:42 Promethazine 25 Mg/Ml Syringe IM 12.5 mg X1 PRN Administration agitation Senna 1 tablet 03/14/25 10:00 03/14/25 10:47 Senna Tablet PO Not Given BID HARINI Sodium Chloride 10 - 40 ml 03/14/25 04:10 0.9% Saline Lock 10 Ml Syringe IV UD PRN SALINE FLUSH Tamsulosin HCl 0.4 mg 03/14/25 10:00 03/14/25 10:47 Tamsulosin Hcl 0.4 Mg Capsule PO Not Given DAILY HARINI Thiamine HCl 100 mg 03/14/25 08:00 03/14/25 10:46 Thiamine Hydrochloride 100 Mg Tablet PO Not Given DAILYCM [facility] Trazodone HCl 25 mg 03/14/25 22:00 Trazodone 50 Mg Tablet PO QHS [facility] NIHSS NIHSS Nursing Documentation NIHSS Nursing Documentation: NIHSS: Ischemic Stroke/TIA Start: 03/14/25 03:51 Text: For PCU Patients: NIH and Neuro Check every 4 Status: Active hours, PRN and with change in RN caregiver. Freq: [id number] Protocol: Activity Type Activity Date Activity User E-sign Co-sign Detail Recorded Client Recorded Date Recorded By Document 03/14/25 10:00 [email or web address] [id number] 03/14/25 11:20 [email or web address] 03/14/25 10:00 NIH Stroke Scale [NIHSS] A score of 0 is normal or asymptomatic . Total possible score is 42. Inpatient: RN or Physician to activate a stroke alert for onset of new stroke symptoms or with NIHSS increase >/= 3 points. Following change in neurological status, NIHSS will be performed per physician order or more frequently PRN. -1a. Level of Consciousness 0 - Alert; keenly responsive -1b. LOC Questions 2 - Answers NEITHER question correctly -1c. LOC Commands 2 - Performs NEITHER task correctly -2. Best Gaze 0 - Normal -3. Visual 0 - No visual loss -4. Facial Palsy 0 - Normal symmetrical movements -5a. Left Arm 0 - No drift; arm holds 90 ( or 45) degrees for full 10 seconds -5b. Right Arm 0 - No drift; arm holds 90 ( or 45) degrees for full 10 seconds -6a. Left Leg 0 - No drift; leg holds 30- degree position for full 5 seconds -6b. Right Leg 0 - No drift; leg holds 30- degree position for full 5 seconds -7. Limb Ataxia 0 - Absent -8. Sensory 0 - Normal; no sensory loss -9. Best Language 2 - Severe aphasia; -10. Dysarthria 2 - Severe dysarthria; -11. Extinction and Inattention 0 - No abnormality -Total 8 Query Text:A score of 0 is normal or asymptomatic. Total possible score is 42 . ED: Notify Physician for NIHSS increase by > / = 3 points. Inpatient: RN or Physician to activate a stroke alert for NIHSS increase of > / = 3 points. Coma Scale [Assess] -Eye Opening To Voice -Motor Localizes to Pain -Verbal Incomprehensibl e [Total] -Coma Scale Total 10 NIHSS: Ischemic Stroke/TIA Start: 03/14/25 03:51 Text: For ICU Patients: NIH sroke scale at Status: Complete presentation and every 2 hours or with change in RN caregiver Freq: [id number] Protocol: Activity Type Activity Date Activity User E-sign Co-sign Detail Recorded Client Recorded Date Recorded By Document 03/14/25 04:00 [facility] [id number] 03/14/25 06:19 [facility] 03/14/25 04:00 NIH Stroke Scale [NIHSS] A score of 0 is normal or asymptomatic . Total possible score is 42. Inpatient: RN or Physician to activate a stroke alert for onset of new stroke symptoms or with NIHSS increase >/= 3 points. Following change in neurological status, NIHSS will be performed per physician order or more frequently PRN. -1a. Level of Consciousness 0 - Alert; keenly responsive -1b. LOC Questions 2 - Answers NEITHER question correctly -1c. LOC Commands 0 - Performs BOTH tasks correctly -2. Best Gaze 0 - Normal -3. Visual 0 - No visual loss -4. Facial Palsy 1 - Minor paralysis ( flattened nasolabial fold , asymmetry on smiling) -5a. Left Arm 0 - No drift; arm holds 90 ( or 45) degrees for full 10 seconds -5b. Right Arm 0 - No drift; arm holds 90 ( or 45) degrees for full 10 seconds -6a. Left Leg 0 - No drift; leg holds 30- degree position for full 5 seconds -6b. Right Leg 0 - No drift; leg holds 30- degree position for full 5 seconds -7. Limb Ataxia 0 - Absent -8. Sensory 0 - Normal; no sensory loss -9. Best Language 2 - Severe aphasia; -10. Dysarthria 2 - Severe dysarthria; -11. Extinction and Inattention 0 - No abnormality -Total 7 Query Text:A score of 0 is normal or asymptomatic. Total possible score is 42 . ED: Notify Physician for NIHSS increase by > / = 3 points. Inpatient: RN or Physician to activate a stroke alert for NIHSS increase of > / = 3 points. Coma Scale [Assess] -Eye Opening Spontaneous -Motor Obeys Commands -Verbal Oriented [Total] -Coma Scale Total 15
--- NOTE | 2025-03-14 14:05 | PCA ---
12/16/2024 CALLED [facility] FOR BED STATUS AT 14:06 NEVER GOT THROUGH.
--- NOTE | 2025-03-14 14:52 | PCA ---
03/14- AT 1453 CC BELL CALLED WITH BED; [address] [id number] BED 1 NURSE TO NURSE NUMBER [phone]
--- NOTE | 2025-03-14 16:04 | NURSING ---
Report called to nurse Asher for pt to be transferred to [facility].
--- NOTE | 2025-03-14 16:04 | CASEMGMT ---
Social Work PHQ9 was not completed due to MRI not being completed. Patient is being transferred to another hospital. TONE Erazo
[2025-03-14] MEDS: 0.9% Saline Lock 10 ML Syringe IV (16:50)
== END 2025-03-14 18:10 | disposition short-term general hospital (02) | DRG 92 ==
LOC: ED 20:03 → PCU 03-14 03:27
PROVIDERS: Admitting Provider Internal Medicine; Emergency Provider Emergency Medicine; PCP Family Medicine; Visit Provider Internal Medicine
DX: G92.8 Other toxic encephalopathy (principal); E44.0 Moderate protein-calorie malnutrition; J90 Pleural effusion, not elsewhere classified; I50.22 Chronic systolic (congestive) heart failure; J96.11 Chronic respiratory failure with hypoxia; I65.01 Occlusion and stenosis of right vertebral artery; J44.9 Chronic obstructive pulmonary disease, unspecified; E11.649 Type 2 diabetes mellitus with hypoglycemia without coma; I11.0 Hypertensive heart disease with heart failure; I73.9 Peripheral vascular disease, unspecified; L97.519 Non-pressure chronic ulcer of other part of right foot with unspecified severity; I25.10 Atherosclerotic heart disease of native coronary artery without angina pectoris; E78.00 Pure hypercholesterolemia, unspecified; Z79.4 Long term (current) use of insulin; I25.2 Old myocardial infarction; F17.210 Nicotine dependence, cigarettes, uncomplicated; I65.22 Occlusion and stenosis of left carotid artery; T36.8X5A Adverse effect of other systemic antibiotics, initial encounter; Z79.02 Long term (current) use of antithrombotics/antiplatelets; Z79.82 Long term (current) use of aspirin; R53.81 Other malaise; Z79.51 Long term (current) use of inhaled steroids; R45.1 Restlessness and agitation; Z86.73 Personal history of transient ischemic attack (TIA), and cerebral infarction without residual deficits; Z79.899 Other long term (current) drug therapy; Z95.1 Presence of aortocoronary bypass graft; Z68.23 Body mass index [BMI] 23.0-23.9, adult; R29.810 Facial weakness
CPT/HCPCS: 70450; 70496; 70498; 71045; 80048; 80061; 82140; 82962; 83036; 83735; 84443; 84484; 85025; 85610; 85730; 87631; 87651; 93005; 94762; 99285; Q9967; A4216; J3486